=== PATIENT | female | born 1970 | race Caucasian/White ===

== ENCOUNTER → 2018-08-15 13:41 | Outpatient (CLI) | payer MEDICAID, SELFPAY ==
[2018-08-15 14:52] LABS: Amphetamine Urine VISTA NEGATIVE (<1000 ng/mL); Barbiturate Urine VISTA NEGATIVE (< 200 ng/mL); Benzodiazepine Urine VISTA NEGATIVE (< 200 ng/mL); Cocaine Urine VISTA NEGATIVE (< 300 ng/mL); Ecstacy Urine VISTA POSITIVE (< 500 ng/mL); Methadone Urine VISTA NEGATIVE (< 300 ng/mL); PCP Urine VISTA NEGATIVE (< 25 ng/mL); THC Urine VISTA POSITIVE (< 50 ng/mL); Vista UDS pH Range 5
[2018-08-21 09:11] LABS: Amphetamine Ur Confirm Negative
== END ==
PROVIDERS: Family Provider Family Medicine; PCP Family Medicine; Referring Provider Psychiatry & Neurology Psychiatry; Visit Provider Psychiatry & Neurology Psychiatry
DX: F19.10 Other psychoactive substance abuse, uncomplicated (principal); Z79.899 Other long term (current) drug therapy
CPT/HCPCS: 80307; 80346

== ENCOUNTER 2019-02-15 15:34 | Emergency (ER) | payer MEDICAID, SELFPAY ==
[2019-02-15 15:37] VITALS: BP 139/89; PULSE 92; RESP 17; TEMP 37.1; O2SAT 95; BMI 29.9
--- NOTE | 2019-02-15 15:57 | ED.DCSUM_ITS ---
History of Present Illness Chief Complaint: Substance Abuse Detail of Chief Complaint: I need help because my liver is failing Informant: Patient Onset: Month(s) Context: Gradual Onset Timing: Continuous Quality: Consumes 12-15 beer cans per day Location: Not applicable Current Severity: Moderate Maximum Severity: Moderate Worsened by: Patient has no symptoms Relieved by: Not applicable Associated Symptoms: Patient presents because physician magistrate assistant Jelani told her..... Narrative: Patient is a 48-year-old woman who presents for detox. She states she drinks heavily. She is drinking 12-15 beers per day. Her last can of beer was 1201. She presents because she was told by Dr. Chairez and BRYANT Palomares that her liver is failing. She does not have access to her most recent labs. She denies change in color of her urine or stool. She states her stool is green-black. She states she is on iron. She denies ocular, visual or auditory symptoms. She denies cardiac or respiratory symptoms. She denies abdominal pain. She denies bruising easily. Prior similar symptoms: No Recent Illness/Hospitalization: No - Past Medical History (1) Hypertension Status: Chronic (2) COPD (chronic obstructive pulmonary disease) with emphysema Status: Chronic (3) PTSD (post-traumatic stress disorder) Status: Chronic (4) Depression Status: Chronic (5) Chronic GERD Status: Chronic (6) Pulmonary embolism Status: Chronic Past Medical History - Allergies and Home Meds Allergies/Adverse Reactions: Allergies fentanyl Adverse Reaction (Verified 02/15/19 15:37) Other varenicline [From Chantix] Adverse Reaction (Verified 02/15/19 15:37) Other Primary Care Physician: Memo Chairez MD [Primary Care Provider] - Prior records reviewed: Yes Surgical History: hysterectomy, tonsillectomy, - - Back surgery Lives: Alone Smoking Status: Current every day smoker Alcohol: Heavy Drugs: None - Family History Paternal Family History: Reports: Cancer, Heart Disease, Stroke Maternal Family History: Reports: Cancer - lung cancer father, mother, paternal uncles x2, Unknown Review of Systems General: Denies: Chills, Fever, Sweats Eyes: Denies: Visual changes - bilaterally, Blurred Vision - bilaterally, Diplopia ENT: Denies: Bilateral ear pain, Rhinorrhea, Sore throat Cardiovascular: Denies: Chest pain, Palpitations Respiratory: Denies: Dyspnea, Cough, Dyspnea on exertion Gastrointestinal: Denies: Abdominal pain, Nausea, Vomiting, Diarrhea, Melena, Hematochezia Genitourinary: Denies: Dysuria, Hematuria, Frequency Musculoskeletal: Denies: Myalgias, Arthralgias, Neck pain, Back pain, Swelling, Extremity Pain Skin: Denies: Rash, Wounds Neurological: Denies: Headache, Weakness, Numbness Psych: Reports: Depression, Anxiety. Denies: Suicidal thoughts, Suicidal ideations Endocrine: Denies: Polyuria, Polydipsia Hematologic: Denies: Easy bruising, Easy bleeding Physical Exam Vital Signs/Narrative: Vital Signs Temp Pulse Resp BP Pulse Ox 02/15/19 15:37 98.8 F 92 17 139/89 H 95 Inital Vital Signs reviewed: Yes General: Well nourished, Well developed, No Acute Distress, - - There is alcohol noted to her breath. Head: Normocephalic, Atraumatic Eyes: Perrl, EOMI ENT: Moist mucous membranes, No rhinorrhea Neck: Supple, Nontender Cardiovascular: Regular rate, Regular rhythm, No murmurs, Normal S1, Normal S2 Respiratory: No distress, CTA bilaterally, Chest nontender Abdomen: Soft, Nontender, Nondistended, Normal bowel sounds, No masses. Negative for: Hepatomegaly, Splenomegaly, Mass Rectal: Deferred Back: Nontender, Normal Inspection Extremities: Nontender, No edema Skin: Normal color, No rash Neurological: Alert, Oriented x3, Cranial nerves II-XII grossly intact, Normal Strength, Normal Sensation, Normal DTR - There is no clonus or Babinski sign. Psychological: Normal affect, Normal Mood Diagnostic/Tx/Re-eval - Medical Decision Making Pain patient's most recent blood work from [facility]. Case management was consulted. Since there is no history of bruising easily will not obtain a PT/INR which is a true assessment of patient's liver function. Humberto test from [facility] were faxed to the emergency department. Patient had a slightly elevated AST and ammonia was 52 with an upper end of normal at 51. The conclusion was drawn the patient is experiencing liver dysfunction. A PT/INR was not obtained and is a true indication of liver function. Since she is not bruising easily and does not have thrombocytopenia or pancytopenia which would indicate bone marrow suppression a PT/INR was not obtained. Case management is presently seen patient to determine best treatment option for Ms. Garcia Keep your appointment at 184 tomorrow morning. Do not discontinue drinking because you may go through withdrawal, which is life-threatening. ED Disposition - Plan for ED Patient: Disposition: Home or Assisted Living Diagnosis: Alcohol intoxication Instructions: Alcohol Abuse Referrals: Memo Chairez MD [Primary Care Provider] - [facility] [STAFF PHYSICIAN] - Keep Mercedes appointment
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
--- NOTE | 2019-02-15 16:47 | NURSING ---
1600 CALLED [facility] FOR MOST RECENT LABS. LEFT MESSAGE ON MEDICAL RECORDS MACHINE. ALSO FAXED A COVER SHEET WITH THE LABS REQUESTED. 1615 RECEIVED LABS FAXED. GAVE THE PACKET TO DR CLOÓN
== END 2019-02-15 17:00 | disposition home or self-care (01) ==
PROVIDERS: Emergency Provider Emergency Medicine; Family Provider Family Medicine; PCP Family Medicine
DX: F10.129 Alcohol abuse with intoxication, unspecified (principal); F17.200 Nicotine dependence, unspecified, uncomplicated; F32.9 Major depressive disorder, single episode, unspecified; F43.10 Post-traumatic stress disorder, unspecified; I10 Essential (primary) hypertension; J44.9 Chronic obstructive pulmonary disease, unspecified; K21.9 Gastro-esophageal reflux disease without esophagitis; Z86.711 Personal history of pulmonary embolism; Z90.710 Acquired absence of both cervix and uterus; Y90.9 Presence of alcohol in blood, level not specified
CPT/HCPCS: 99281

== ENCOUNTER 2019-08-09 16:55 | Outpatient (REF) | payer SELFPAY | END 2019-08-09 21:00 | disposition home or self-care (01) | LOC: EDREF 16:55 | DX: Z04.41 Encounter for examination and observation following alleged adult rape (principal) ==

== ENCOUNTER 2019-12-07 16:38 | Emergency (ER) | payer MEDICAID, SELFPAY ==
[2019-12-07 16:42] VITALS: BP 130/93; PULSE 81; RESP 22; TEMP 36.9; O2SAT 97; BMI 31.6
--- NOTE | 2019-12-07 17:01 | EKG12_ITS ---
Test Reason : CP Blood Pressure : / mmHG Vent. Rate : 078 BPM Atrial Rate : 078 BPM P-R Int : 160 ms QRS Dur : 092 ms QT Int : 408 ms P-R-T Axes : 023 066 068 degrees QTc Int : 465 ms Normal sinus rhythm Nonspecific ST abnormality Abnormal ECG Confirmed by RICCI BLACKWELL, BIBIANA ([id number]), television news video editor DOYLE BAZZI ([id number]) on 12/11/2019 10:47:03 AM Referred By: ANGELA Confirmed By:BIBIANA WYNNE MD
--- NOTE | 2019-12-07 17:01 | CT_ITS ---
STUDY: CTA CHEST REASON FOR EXAM: Female, 49 years old. CP X 3 DAYS RADIATION DOSAGE (If Supplied By Facility): CTDIvol = ( 12.89 ) mGy, DLP = ( 492.57 ) mGycm TECHNIQUE: The examination was performed with the intravenous administration of 100CC ISOVUE 370. Post-processing of the angiographic images was performed, with multiplanar reformation and 3D reconstruction. Individualized dose optimization techniques were used for this CT. COMPARISON: April 19, 2016 FINDINGS: Normal enhancement of the main pulmonary artery and right and left pulmonary arteries. Normal enhancement of the bilateral peripheral pulmonary arteries. There is no demonstrated pulmonary embolism. Atherosclerotic changes of the aorta without evidence for aneurysm There is no demonstrated aortic dissection. Heart size is normal. There is minimal coronary artery calcification. Small subcentimeter mediastinal nodes.. Normal hilar regions. Normal visualized trachea and bronchi. There is minimal subsegmental atelectasis in right upper lobe. No focal infiltration is seen. There is a calcified granuloma in left lower lobe. Normal pleura. Normal chest wall structures. Dorsal spine demonstrates advanced spondylosis Mild nonspecific fatty infiltration of the liver. CT/CTA Chest W/WO Contrast IMPRESSION: Minimal subsegmental atelectasis in right upper lobe. No focal infiltration. Calcified granuloma in left lower lobe No evidence for pulmonary embolus Electronically Signed: Mitul Brand MD at 18:20 EDT , Service support ,
[2019-12-07 17:09] VITALS: O2SAT 96
--- NOTE | 2019-12-07 17:09 | ED.DCSUM_ITS ---
- ER Visit Summary Date of Service: 12/07/19 Chief Complaint: Chest pain History of Present Illness: The patient is a 49 F with right side chest pain for several days. It radiates through to her right back. She denies any abdominal pain or GI symptoms. Denies any urinary symptoms. Denies fever or cough. She had similar symptoms in the past with an abscess in her chest. She also has a history of PE. She is not currently on blood thinners. History of COPD. Denies any cardiac history. Physical Examination: Afebrile and vital signs unremarkable. Patient appears uncomfortable but not toxic or in distress. Heart regular. Lungs clear. Abdomen soft and nontender. Calves soft and supple. Test Results: EKG shows sinus rhythm at a rate of [address] segment changes. Labs and CTA pending. Emergency Department Course and Treatment: Patient was placed on a monitor. X- ray as above. Will check labs and imaging. Patient received Zofran and morphine while awaiting results. CBC normal. BMP unremarkable. Troponin normal. CT showed right upper lobe atelectasis, left lower lobe granuloma but no PE. Patient is better on reevaluation. I do not believe this is cardiac. She had the pain for 3 days straight continuously. I advised her that the only way to know for sure would involve admission and further testing. Patient declined. We will try outpatient pain medicine and follow-up with primary care. Return for any new or worsening issues. I reexamined her and pressed on her abdomen. She has no abdominal tenderness. Treatment Plan: As above Disposition: Discharge Impression: Atypical chest pain This note was generated with [email or web address] dictation software. It may contain incorrect words, spelling, and punctuation that were not noted in review of the chart prior to signing ED Disposition - Plan for ED Patient: Referrals: Memo Chairez MD [Primary Care Provider] -
[2019-12-07] MEDS: Morphine 4 MG/ML Syringe IV (17:17)
[2019-12-07] MEDS: Ondansetron 4 MG/2 ML Vial IV (17:17)
[2019-12-07 17:31] LABS: Absolute Lymphocyte Count 2.05 X10^3/uL (0.83-4.51); Absolute Neutrophil Count 4.8 X10^3/uL (2.0-7.7); Basophil# 0.06 X10^3/uL; Basophil% 0.7 % (0-1); Eosinophil# 0.22 X10^3/uL; Eosinophils% 2.7 % (0-5); Hematocrit 41.9 % (37-47); Hemoglobin 14.8 g/dL (12.0-15.0); Lymphocyte # 2.05 X10^3/ul (4.0); Lymphocyte % 25.5 % (19-41); Mean Corp Hgb Conc 35.3 g/dL (32-36); Mean Corpuscular Hgb 33.6 pg (27.0-32.0); Mean Corpuscular Volume 95.2 fL (81-99); Mean Platelet Vol. 11.3 fl (6.2-12.0); Monocyte# 0.86 X10^3/uL; Monocyte% 10.7 % (0-10); NRBC Flagged by Analyzer 0 % (0-5); Neutrophil # 4.81 X10^3/uL (2.7-7.7); Platelet Count 270 K/mm3 (150-450); RBC Distribution Width SD 42.2 fl (35.1-43.9)
[2019-12-07 17:45] LABS: Anion Gap 8 (5-15); BUN 9 mg/dL (7-18); BUN/Creat Ratio 13.4 RATIO (10-20); Calcium,Total 8.9 mg/dL (8.5-10.1); Chloride 99 mmol/L (98-107); Creatinine, Serum 0.67 mg/dL (0.55-1.02); EST Glomerular Filtration Rate 98 mL/min (>60); Est Glom Filt Rate - Afr Amer 118 mL/min (>60); Estimated Creatinine Clearance 100.21 ml/min; Glucose 85 mg/dL (74-106); Potassium 3.6 mmol/L (3.5-5.1); Sodium Level 133 mmol/L (136-145)
[2019-12-07 17:53] LABS: Partial Thromboplast Time 28.3 Seconds (24.1-36.2)
--- NOTE | 2019-12-07 18:30 | ED.DEP ---
ED Disposition - Plan for ED Patient: Instructions: ED Chest Pain Atypical Unkn Cause Prescriptions: Oxycodone HCl/Acetaminophen [Percocet 5/325] 1 tab PO Q6H PRN PRN 3 Days #12 tab PRN Reason: Pain Prescription Printed Referrals: Memo Chairez MD [Primary Care Provider] -
== END 2019-12-07 19:28 | disposition home or self-care (01) ==
LOC: ED 17:37
PROVIDERS: Emergency Provider Emergency Medicine; PCP Family Medicine
DX: R07.9 Chest pain, unspecified (principal); R07.89 Other chest pain; J44.9 Chronic obstructive pulmonary disease, unspecified; Z86.711 Personal history of pulmonary embolism; J84.10 Pulmonary fibrosis, unspecified; J98.11 Atelectasis; K21.9 Gastro-esophageal reflux disease without esophagitis; I10 Essential (primary) hypertension; Z72.0 Tobacco use
CPT/HCPCS: 71275; 80048; 84484; 85025; 85610; 85730; 93005; 96374; 96375; 99285; J7030; Q9967; A4216; J2405

== ENCOUNTER 2020-04-01 13:20 | Emergency (ER) | payer MEDICAID, SELFPAY ==
[2020-04-01 13:24] VITALS: BP 171/106; PULSE 76; PULSE 77; RESP 12; RESP 16; TEMP 36.9; O2SAT 94; O2SAT 95; BMI 31.0
--- NOTE | 2020-04-01 13:27 | EKG12_ITS ---
Test Reason : CP Blood Pressure : / mmHG Vent. Rate : 073 BPM Atrial Rate : 073 BPM P-R Int : 160 ms QRS Dur : 086 ms QT Int : 392 ms P-R-T Axes : 028 026 058 degrees QTc Int : 431 ms Normal sinus rhythm Septal infarct , age undetermined Abnormal ECG Confirmed by CORA BLACKWELL, MU ([id number]), business editor DOYLE BAZZI ([id number]) on 04/07/2020 8:47:04 A M Referred By: GOKUL Confirmed By:LONG SHEPHERD MD
--- NOTE | 2020-04-01 13:28 | ED.VIS.GEN ---
History of Present Illness Chief Complaint: Chest Pain Informant: Patient Onset: Days Context: Gradual Onset Timing: Continuous Current Severity: Moderate Maximum Severity: Moderate Narrative: The patient is a 50-year-old female with medical history significant for COPD and prior pulmonary emboli the presents to the emergency department chest pain and dyspnea. The patient states that for the past 3 days, she is a gradually worsening chest pain. She describes it as bandlike across her chest. She states is worse when she coughs or breathes. She denies any fevers. She denies any productive sputum. She denies any nausea or vomiting. She denies any history of prior coronary vascular disease. She states she has been using her inhalers with little improvement. Prior similar symptoms: Yes Recent Illness/Hospitalization: No Past Medical History - Allergies and Home Meds Allergies/Adverse Reactions: Allergies fentanyl Adverse Reaction (Verified 04/01/20 13:23) Other varenicline [From Chantix] Adverse Reaction (Verified 04/01/20 13:23) Other Primary Care Physician: Memo Chairez MD [Primary Care Provider] - Prior records reviewed: Yes Past Medical History: - - COPD Surgical History: hysterectomy, tonsillectomy, - - Back surgery Smoking Status: Current every day smoker - Family History Paternal Family History: Reports: Cancer, Heart Disease, Stroke Maternal Family History: Reports: Cancer - lung cancer father, mother, paternal uncles x2, Unknown Review of Systems General: Denies: Chills, Fever, Sweats Eyes: Denies: Visual changes - bilaterally, Diplopia ENT: Denies: Rhinorrhea, Sore throat Cardiovascular: Reports: Chest pain. Denies: Palpitations Respiratory: Reports: Dyspnea, Cough. Denies: Dyspnea on exertion Gastrointestinal: Denies: Abdominal pain, Nausea, Vomiting, Diarrhea, Melena, Hematochezia Genitourinary: Denies: Dysuria, Hematuria, Frequency Musculoskeletal: Denies: Back pain, Extremity Pain Skin: Denies: Rash, Wounds Neurological: Denies: Headache, Weakness, Numbness Physical Exam Inital Vital Signs reviewed: Yes General: Well nourished, Well developed, No Acute Distress Head: Normocephalic, Atraumatic Eyes: Perrl, EOMI ENT: Moist mucous membranes, No rhinorrhea Neck: Supple, Nontender Cardiovascular: Regular rate, Regular rhythm, No murmurs Respiratory: No distress, Chest nontender, Wheezing Abdomen: Soft, Nontender, Nondistended, Normal bowel sounds Back: Nontender, Normal Inspection Extremities: Nontender, No edema Skin: Normal color, No rash Neurological: Alert, Oriented x3, Cranial nerves II-XII grossly intact, Normal Strength, Normal Sensation Psychological: Normal affect, Normal Mood Diagnostic/Tx/Re-eval Clinical Impression(s) from Imaging Studies Chest X-Ray 04/01/20 13:36 IMPRESSION: Normal x-ray examination of the chest. Electronically Signed: Km Esquivel MD at 14:38 EDT Tel , Service support , Abnormal Lab Results 04/01/20 04/01/20 04/01/20 13:45 13:45 13:45 WBC 7.7 RBC 4.04 L Hgb 13.2 Hct 39.2 MCV 97.0 MCH 32.7 H MCHC 33.7 RDW Std Deviation 42.9 RDW Coeff of Sandeep 12.0 Plt Count 191 MPV 11.2 Immature Gran % (Auto) 0.400 Neut % (Auto) 66.4 Lymph % (Auto) 18.9 L Becker % (Auto) 10.9 H Eos % (Auto) 2.7 Baso % (Auto) 0.7 Absolute Neuts (auto) 5.1 Absolute Lymphs (auto) 1.45 Nucleated RBC % 0 D-Dimer Quant (PE/DVT) 0.37 Sodium 135 L Potassium 4.1 Chloride 102 Carbon Dioxide 31.0 Anion Gap 2 L BUN 10 Creatinine 0.66 Estim Creat Clear Calc 100.58 Est GFR (MDRD) Af Amer 121 Est GFR (MDRD) Non-Af 100 BUN/Creatinine Ratio 15.1 Glucose 95 Calcium 8.7 Magnesium 2.0 Troponin I < 0.015 - Rhythm Strip Rhythm Strip: Sinus Rhythm Rate: 80 Ectopy: None - EKG Initial EKG Interpretation: Sinus Rhythm, No Acute Injury Pattern, Non-Specific ST Changes Prior: Unchanged - Medical Decision Making The patient presents with chest pain for 3 days with shortness of breath and cough. She has not had fever. She not had chills. She has no history of coronary vascular disease. EKG was obtained. Was sinus rhythm without any acute ischemic change. Was unchanged from prior. The patient is have wheezing in all lung coreas. She was given nebulized breathing treatments with improvement of aeration. Screening labs including cardiac enzymes were negative. D-dimer was negative. Given the duration of her symptoms, I really do not suspect this to be acute coronary syndrome. She was improved after treatments. With her underlying smoking and COPD history, along with productive sputum, I am going to cover her with doxycycline and prednisone. Patient is comfortable with this plan of care will be discharged home. Impression 1. COPD exacerbation ED Disposition - Plan for ED Patient: Instructions: ED Chest Pain Pleurisy Prescriptions: Prednisone [Deltasone] 60 mg PO DAILY #15 tab Prescription Printed Doxycycline 100 mg PO BID #20 cap Prescription Printed Referrals: Memo Chairez MD [Primary Care Provider] -
--- NOTE | 2020-04-01 13:36 | RAD_ITS ---
STUDY: X-RAY CHEST REASON FOR EXAM: Female, 50 years old. COUGH SOB CHEST PAIN TECHNIQUE: Single AP portable view of the chest. COMPARISON: 02/28/2017 FINDINGS: The lungs are clear and expanded. There is no demonstrated pleural abnormality. Normal size heart. Normal mediastinum and ollie. Normal visualized pulmonary arteries. Normal visualized aortic arch and descending thoracic aorta. Normal visualized thoracic spine. Normal visualized ribs, clavicles, and shoulders. There is no demonstrated abnormality of the visualized soft tissue structures of the upper abdomen. RAD/Chest 1 View (Portable) IMPRESSION: Normal x-ray examination of the chest. Electronically Signed: Km Esquivel MD at 14:38 EDT Tel , Service support ,
[2020-04-01 13:48] VITALS: BP 158/117; PULSE 78; RESP 16; TEMP 36.9; O2SAT 95
[2020-04-01 13:58] LABS: Absolute Lymphocyte Count 1.45 X10^3/uL (0.83-4.51); Absolute Neutrophil Count 5.1 X10^3/uL (2.0-7.7); Basophil# 0.05 X10^3/uL; Basophil% 0.7 % (0-1); Eosinophil# 0.21 X10^3/uL; Eosinophils% 2.7 % (0-5); Hematocrit 39.2 % (37-47); Hemoglobin 13.2 g/dL (12.0-15.0); Lymphocyte # 1.45 X10^3/ul (4.0); Lymphocyte % 18.9 % (19-41); Mean Corp Hgb Conc 33.7 g/dL (32-36); Mean Corpuscular Hgb 32.7 pg (27.0-32.0); Mean Platelet Vol. 11.2 fl (6.2-12.0); Monocyte# 0.84 X10^3/uL; Monocyte% 10.9 % (0-10); NRBC Flagged by Analyzer 0 % (0-5); Neutrophil % 66.4 % (47-70); Platelet Count 191 K/mm3 (150-450); RBC Distribution Width SD 42.9 fl (35.1-43.9); Red Blood Count 4.04 M/mm3 (4.2-5.4); White Blood Count 7.7 K/mm3 (4.4-11.0)
[2020-04-01 14:07] LABS: D-Dimer Quantitative (DVT/PE) 0.37 FEU/ug/m (0.27-0.49)
[2020-04-01 14:16] LABS: Anion Gap 2 (5-15); BUN 10 mg/dL (7-18); BUN/Creat Ratio 15.1 RATIO (10-20); Calcium,Total 8.7 mg/dL (8.5-10.1); Chloride 102 mmol/L (98-107); Creatinine, Serum 0.66 mg/dL (0.55-1.02); EST Glomerular Filtration Rate 100 mL/min (>60); Est Glom Filt Rate - Afr Amer 121 mL/min (>60); Estimated Creatinine Clearance 100.58 ml/min; Glucose 95 mg/dL (74-106); Potassium 4.1 mmol/L (3.5-5.1); Sodium Level 135 mmol/L (136-145)
[2020-04-01] MEDS: Morphine 4 MG/ML Syringe IV (14:24)
[2020-04-01 15:22] VITALS: BP 146/106; PULSE 71; RESP 16; O2SAT 96
== END 2020-04-01 15:24 | disposition home or self-care (01) ==
PROVIDERS: Emergency Provider Emergency Medicine; PCP Family Medicine
DX: J44.1 Chronic obstructive pulmonary disease with (acute) exacerbation (principal); F17.200 Nicotine dependence, unspecified, uncomplicated; Z82.49 Family history of ischemic heart disease and other diseases of the circulatory system; Z86.711 Personal history of pulmonary embolism; Z88.5 Allergy status to narcotic agent; Z90.710 Acquired absence of both cervix and uterus
CPT/HCPCS: 71045; 80048; 83735; 84484; 85025; 85379; 93005; 96374; 99281; 99285; A4216

== ENCOUNTER 2020-05-10 17:56 | Inpatient (IN) | payer MEDICAID, SELFPAY ==
[2020-05-10 17:57] VITALS: BP 135/90; PULSE 100; RESP 18; TEMP 37.4; O2SAT 94; BMI 29.2
--- NOTE | 2020-05-10 17:59 | EKG12_ITS ---
Test Reason : CP Blood Pressure : / mmHG Vent. Rate : 093 BPM Atrial Rate : 093 BPM P-R Int : 134 ms QRS Dur : 100 ms QT Int : 378 ms P-R-T Axes : -08 068 056 degrees QTc Int : 469 ms Normal sinus rhythm Normal ECG Confirmed by RICCI BLACKWELL, BIBIANA ([id number]), publications editor ANDREZ BUCHANAN ([id number]) on 05/14/2020 12:52:24 PM Referred By: Kelly Vidales Confirmed By:BIBIANA WYNNE MD
--- NOTE | 2020-05-10 18:07 | CT_ITS ---
STUDY: CT ABDOMEN AND PELVIS WITHOUT CONTRAST REASON FOR EXAM: Female, 50 years old. N/V/D X 2 DAYS WITH RIGHT SIDED ABD PAIN X 2 HOURS, HX COPD, HYSTERECTOMY, BACK SX RADIATION DOSAGE (If Supplied By Facility): CTDIvol = ( 15.94 ) mGy, DLP = ( 784.57 ) mGycm TECHNIQUE: Transaxial images were obtained from the dome of the diaphragm to the symphysis pubis without oral contrast, and without intravenous contrast. Sagittal and coronal images were reconstructed. Individualized dose optimization techniques were used for this CT. COMPARISON: Prior abdomen and pelvic CT exam of 07/08/2059 FINDINGS: The visualized lung bases are unremarkable. The visualized portions of the heart are within normal limits. Severe fatty liver with mild hepatomegaly. Normal gallbladder and extrahepatic biliary system. Normal spleen. Normal pancreas. Normal bilateral adrenal glands. Normal size of the kidneys bilaterally. Negative for hydronephrosis or stones. There is an exophytic isodense nodule on the lateral border of the lower pole measuring 12 mm. Formally appeared as a simple cyst on contrast exam. Similar in size. Normal visualized stomach. Normal small intestine. Normal colon. The appendix is visualized and appears normal. Mild plaque of the aorta. Normal inferior vena cava. Normal retroperitoneum. Normal urinary bladder. Status post hysterectomy with no pelvic mass or free fluid of the pelvis. Minimal bilateral fatty groin hernias. There are diffuse degenerative changes of the visualized lumbar spine. CT/Abdomen/Pelvis without Cont IMPRESSION: Mild hepatomegaly with severe fatty change. Normal spleen and pancreas. Unremarkable gallbladder. No acute renal findings or changes. Negative for hydronephrosis or stones. Unremarkable nondistended urinary bladder. Stable exophytic 12 mm cyst in the lower pole of left kidney. Mild tortuosity and atherosclerotic changes of the aorta without aneurysm. Status post hysterectomy with no pelvic mass or free fluid of the pelvis. No acute bowel related findings. Negative for evidence of obstruction, perforation or inflammatory bowel changes. A normal appendix is identified. Electronically Signed: Belkis Tolbert MD at 19:11 EST , Service support ,
--- NOTE | 2020-05-10 18:09 | ED.DCSUM_ITS ---
- ER Visit Summary Date of Service: 05/10/20 Chief Complaint: Abdominal pain History of Present Illness: The patient is a [address] Chairez. She reports approximately 2-1/2 hours ago she had the onset of right-sided abdominal pain. Stabbing pain is 10 of 10 severity. Is worsened by coughing relieved by nothing. She reports that she has been nauseated and vomited approximately 12 times today. She reports that she vomited 20 times yesterday. No blood in her emesis. She reports that she has had multiple episodes of diarrhea for the past 2 days. She is taken Imodium and has not had any diarrhea today. Patient denies sick contacts. Has not been camping out of the country. No possible bad food exposure. Does not drink well water. She reports that she was on amoxicillin approximately 1 month ago for a COPD flare. Patient denies any flank pain. She reports that she has chest pain that began 2:00 this afternoon. Is a constant pressure that is 910 at worst and 710 currently. Increased with coughing or vomiting. There is no change with exertion. Patient does complain of subjective fever and chills. She has a chronic cough that is unchanged. She complains of generalized weakness. Physical Examination: Vitals: Stable. Afebrile. General: Well-nourished and well-developed. Head: Normocephalic atraumatic. Neck: Supple, no lymphadenopathy. No JVD. Nontender. Cardiovascular: Regular rate and rhythm. No murmurs. Respiratory: No respiratory distress. Clear to auscultation bilaterally. Abdominal: Soft, severe tenderness palpation the epigastric region with moderate right upper quadrant and right lower quadrant tenderness to palpation, nondistended, normal bowel sounds. No guarding, rebound, or peritoneal signs. Back: Nontender. No CVA tenderness. Extremities: Nontender, no edema. Skin: Normal color, no rash. Neurologic: Alert and oriented ?3. Cranial nerves II through XII are intact. Normal strength and sensation. Psych: Normal affect. Test Results: CBC shows a white count of 15.2 with segment neutrophils of 70 and lymphocytes of 11. Chem-7 shows sodium 134 and glucose 107. LFTs show total bili of 1.5, alk phos of 122, ALT of 277, AST of 554, albumin 3.0, globulin 4.6. Lipase is 170. Troponin is negative. EKG is sinus at [address] changes. Is essentially unchanged from last month. COVID-19 is negative. Clinical Impression(s) from Imaging Studies Abdomen/Pelvis CT 05/10/20 18:07 IMPRESSION: Mild hepatomegaly with severe fatty change. Normal spleen and pancreas. Unremarkable gallbladder. No acute renal findings or changes. Negative for hydronephrosis or stones. Unremarkable nondistended urinary bladder. Stable exophytic 12 mm cyst in the lower pole of left kidney. Mild tortuosity and atherosclerotic changes of the aorta without aneurysm. Status post hysterectomy with no pelvic mass or free fluid of the pelvis. No acute bowel related findings. Negative for evidence of obstruction, perforation or inflammatory bowel changes. A normal appendix is identified. Electronically Signed: Belkis Tolbert MD at 19:11 EST , Service support , Chest X-Ray 05/10/20 18:35 IMPRESSION: Generalized hyperexpansion without new consolidation, other infiltrates or focal atelectasis. Normal cardiac size without pleural effusion. Minimal linear opacity stable from prior exam. Electronically Signed: Belkis Tolbert MD at 18:55 EST , Service support , Emergency Department Course and Treatment: Patient had an IV placed. She was given a liter of normal saline. She was given morphine and Zofran IV. She is resting more comfortably. Treatment Plan: The patient was discussed with Dr. Gordon who reviewed the CT. She does not feel that an ultrasound is necessary tonight. However, she does feel that her blood work is consistent with cholecystitis. She was given a dose of Zosyn. Patient was then discussed with Dr. Vidales. She will be admitted to the hospital for further evaluation and treatment. Disposition: Admitted in improved condition. Impression: 1. Cholecystitis. This note was generated with [employer] software. It may contain incorrect words, spelling, and punctuation that were not noted in review of the chart prior to signing ED Disposition - Plan for ED Patient: Referrals: Memo Chairez MD [Primary Care Provider] -
[2020-05-10] MEDS: 0.9% Normal Saline 1,000 ML 1000 ML IV (18:26)
[2020-05-10] MEDS: Ondansetron 4 MG/2 ML Vial IV ×2 (18:26→22:24)
[2020-05-10] MEDS: Morphine 4 MG/ML Syringe IV ×2 (18:27→19:48)
[2020-05-10] MEDS: LORazepam 2 MG/ML Syringe 1 MG IV (18:28)
[2020-05-10 18:33] LABS: Basophil# 0.07 X10^3/uL; Basophil% 0.5 % (0-1); Eosinophil# 0.03 X10^3/uL; Eosinophils% 0.2 % (0-5); Hematocrit 43.7 % (37-47); Hemoglobin 14.9 g/dL (12.0-15.0); Lymphocyte % 11.2 % (19-41); Mean Corp Hgb Conc 34.1 g/dL (32-36); Mean Corpuscular Hgb 33.3 pg (27.0-32.0); Mean Corpuscular Volume 97.5 fL (81-99); Mean Platelet Vol. 10.4 fl (6.2-12.0); Monocyte# 1.34 X10^3/uL; Monocyte% 8.8 % (0-10); NRBC Flagged by Analyzer 0 % (0-5); Neutrophil # 12.02 X10^3/uL (2.7-7.7); Platelet Count 287 K/mm3 (150-450); RBC Distribution Width CV 13.2 % (11.6-14.6); RBC Distribution Width SD 47.1 fl (35.1-43.9); Red Blood Count 4.48 M/mm3 (4.2-5.4); White Blood Count 15.2 K/mm3 (4.4-11.0)
--- NOTE | 2020-05-10 18:35 | RAD_ITS ---
STUDY: X-RAY CHEST REASON FOR EXAM: Female, 50 years old. Chest pain,cough,, nausea, vomiting, diarrhea x2 days. TECHNIQUE: 1 view COMPARISON: Prior chest radiograph of 04/01/2020 FINDINGS: Generalized hyperexpansion without new consolidation or focal atelectasis. Chronic mild thickening of the minor fissure and a minimal area of fibrotic change at the base of the right upper lobe and left lower lobe stable from prior exam. Normal size heart. Normal mediastinum and ollie. Normal visualized pulmonary arteries. Mild elongation of the thoracic aorta. There are diffuse degenerative changes of the visualized thoracic spine. Normal visualized ribs, clavicles, and shoulders. There is no demonstrated abnormality of the visualized soft tissue structures of the upper abdomen. RAD/Chest 1 View (Portable) IMPRESSION: Generalized hyperexpansion without new consolidation, other infiltrates or focal atelectasis. Normal cardiac size without pleural effusion. Minimal linear opacity stable from prior exam. Electronically Signed: Belkis Tolbert MD at 18:55 EST , Service support ,
[2020-05-10 18:48] LABS: ALB/GLOB Ratio 0.7 RATIO (0.9-2.4); AST(SGOT) 554 U/L (15-37); Alanine Aminotransfer ALT/SGPT 277 U/L (13-56); Alkaline Phosphatase 122 U/L (45-117); Anion Gap 11 (5-15); BUN 10 mg/dL (7-18); BUN/Creat Ratio 13.8 RATIO (10-20); Calcium,Total 8.6 mg/dL (8.5-10.1); Chloride 99 mmol/L (98-107); Creatinine, Serum 0.72 mg/dL (0.55-1.02); EST Glomerular Filtration Rate 90 mL/min (>60); Est Glom Filt Rate - Afr Amer 109 mL/min (>60); Globulin 4.6 g/dL (2.2-4.2); Glucose 107 mg/dL (74-106); Lipase 170 U/L (73-393); Potassium 4.1 mmol/L (3.5-5.1); Protein, Total 7.6 g/dL (6.4-8.2); Sodium Level 134 mmol/L (136-145)
[2020-05-10 19:52] VITALS: BP 147/92; PULSE 95; RESP 20; O2SAT 94
[2020-05-10 20:25] VITALS: O2SAT 85; O2SAT 93
--- NOTE | 2020-05-10 20:38 | PCM.HP.STD ---
Problem List (1) Acute cholecystitis Status: Acute (2) Elevated LFTs Status: Acute (3) Anxiety and depression Status: Chronic (4) HLD (hyperlipidemia) Status: Chronic Qualifiers: Hyperlipidemia type: unspecified Qualified Code(s): E78.5 - Hyperlipidemia, unspecified (5) Tobacco use Status: Chronic (6) Back pain Status: Chronic Qualifiers: Back pain location: back pain in unspecified location (7) COPD (chronic obstructive pulmonary disease) with emphysema Status: Chronic Qualifiers: Emphysema type: unspecified Qualified Code(s): J43.9 - Emphysema, unspecified (8) Chronic GERD Status: Chronic (9) Hypertension Status: Chronic Qualifiers: Hypertension type: essential hypertension Qualified Code(s): I10 - Essential (primary) hypertension (10) PTSD (post-traumatic stress disorder) Status: Chronic (11) SANA (obstructive sleep apnea) Status: Chronic (12) Hypothyroidism Status: Chronic Qualifiers: Hypothyroidism type: unspecified Qualified Code(s): E03.9 - Hypothyroidism, unspecified (13) Alcohol abuse Status: Chronic History of Present Illness Date of Admission: 05/10/20 Chief Complaint: Epigastric, RUQ abdominal pain, N/V, diarrhea, cough The patient is a 50 y/o F w/ PMHx: SANA on 2L NC q HS, Chronic COPD, Anxiety and Depression, HTN, HLD, Hypothyroidism, GERD, Fe deficiency anemia, Tobacco use, Hx Polysubstance abuse (EtOH, Cocaine prior) who presents to the [facility] ED on 05/10/20 with history of onset of right-sided and epigastric abdominal pain, described as a stabbing sharp 10 out of 10 severity, worsened by movement and coughing with additionally noted nausea and occasional emesis the day prior and day of presentation as well as loose stools over the last 48 hours with self administration of Imodium with resolution of her diarrhea prompting ED evaluation. Patient did report that she had 1-2 alcoholic beverages and currently limits her self to 6 packs of beer (12 ounce 8%) daily and was more heavy in the past. She denies any alcohol withdrawal history. Work-up in the ED included T 99.4, heart 100, BP 135/90, respiratory rate 18, initially 94% on room air however there was noted to be 85% on room air later in the ED evaluation unclear following pain medications with improvement to 93% on 2 L nasal cannula but then also noted she uses 2L NC when she is sleeping/at night for her SANA, CBC with WBC 15.2, hemoglobin 14.9, platelet 227 with left shift, CMP with sodium 134, glucose 107, total bilirubin 1.50, AST/ALT 554/277, alk phos 122, troponin less than 0.015, lipase 170, COVID PRN negative, ethyl alcohol 64, chest x-ray with generalized hyperexpansion with no acute cardiopulmonary findings, CT abdomen and pelvis with mild hepatomegaly with severe fatty change, normal-appearing spleen and pancreas, unremarkable appearing gallbladder, stable exophytic 12 mm lower pole of the left kidney, status post hysterectomy, normal-appearing appendix. In the ED patient ministered normal saline, Zosyn, Zofran, morphine 4 mg IV x2 as well as Ativan 1 mg IV x1. Given patient presentation and concern for acute cholecystitis General surgery, Dr. Gordon called for admission per Dr. Alejandra and given medical history and need to obtain further work-up to conclusively state cholecystitis requested admission to medical service. Past Medical History Past Medical History (Chronic Problems): Chronic Problems Anxiety and depression (Chronic) HLD (hyperlipidemia) (Chronic) Tobacco use (Chronic) SANA (obstructive sleep apnea) (Chronic) Hypothyroidism (Chronic) Alcohol abuse (Chronic) Hypertension (Chronic) COPD (chronic obstructive pulmonary disease) with emphysema (Chronic) Back pain (Chronic) PTSD (post-traumatic stress disorder) (Chronic) Depression (Chronic) Anemia of unknown etiology (Chronic) Chronic GERD (Chronic) Pulmonary embolism (Chronic) Allergies fentanyl Adverse Reaction (Verified 05/10/20 17:56) Other varenicline [From Chantix] Adverse Reaction (Verified 05/10/20 17:56) Other Home Medications: Ambulatory Orders Medication Instructions Recorded Omeprazole [Prilosec] 40 mg PO DAILY 11/13/15 Famotidine [Pepcid] 20 mg PO QHS 12/18/15 Lisinopril [Zestril] 20 mg PO DAILY 12/18/15 buPROPion XL [Wellbutrin Xl] 150 mg PO DAILY 01/29/16 Ferrous Sulfate 325 mg PO BIDCM 03/04/16 Atorvastatin Calcium [Lipitor] 40 mg PO QHS 10/05/16 Cholecalciferol (Vitamin D3) 5,000 unit PO DAILY 10/05/16 [Vitamin D3] Furosemide [Lasix] 40 mg PO DAILY 10/05/16 Fluoxetine [Prozac] 60 mg PO DAILY 12/16/16 Lurasidone HCl [Latuda] 80 mg PO DAILY 12/16/16 Levothyroxine [Synthroid] 25 mcg PO DAILY 02/28/17 Albuterol Aerosols [Ventolin 2.5 mg INHALATION Q4H PRN PRN 12/07/19 Aerosols] Albuterol Sulfate [Albuterol 2 puff IH TID PRN 12/07/19 Sulfate HFA] Baclofen 10 mg PO BID PRN 12/07/19 Diclofenac [Voltaren] 75 mg PO BID 12/07/19 Fluticasone/Vilanterol [Breo 1 ea IH DAILY 12/07/19 Ellipta 200-25 Mcg INH] Melatonin 5 mg PO QHS PRN 12/07/19 Potassium Chloride 10 meq PO DAILY 12/07/19 Pregabalin 150 mg PO TID 12/07/19 Tiotropium [place]xton [Spiriva] 18 mcg IH DAILY 05/10/20 Surgical History: hysterectomy, tonsillectomy, - - Back surgery Psychiatric History: Anxiety, Depression, Post traumatic stress 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 Tobacco Use: Cigarettes Alcohol: Heavy - Patient currently decreased from prior and is now at a 6 pack of 12 ounce 8% alcohol beers daily. Drugs: - - Patient with history of prior cocaine abuse but has not used in decades. She does use occasional marijuana which she notes is for pain. - *Family History Paternal History Items: Cancer - Father with a history of lung cancer, tobacco use concurrently., High Cholesterol, Heart Disease, Stroke Maternal History Items: Cancer - Mother with a history of lung cancer, tobacco use concurrently. Review of Systems Constitutional: Reports: Anorexia, Malaise, Weakness, Fatigue. Denies: Chills, Fever, Weight Change HEENT: Denies: Head Aches, Sinus Congestion, Sinus Drainage Cardiovascular: Denies: Chest Pain, Palpitations Respiratory: Reports: Cough. Denies: Shortness of Breath, Shortness of breath at rest, Shortness of breath upon exertion, Sputum production, Wheezing Gastrointestinal: Reports: Abdominal Pain, Diarrhea, Nausea, Vomiting Genitourinary: Denies: Dysuria Musculoskeletal: Reports: Back Pain, Joint Pain. Denies: Joint Tenderness Skin: Denies: Rash, Wounds Neurological: Denies: Numbness, Tingling, Focal weakness Psychiatric: Reports: Anxiety, Depression. Denies: Homicidal Ideations, Suicidal Ideations Hematologic/ Lymphatic: Reports: Anemia. Denies: Easy Bruising, Easy Bleeding VTE Information - Inpt Only VTE Present on Admission: No VTE Mechan Device Prophylaxis: SCD's VTE Pharm Prophylaxis ordered?: No Reason prophylaxis not ordered:: Medical Contraindication - Hold for OR. Patient Problems: Active and Suspected Problems Elevated LFTs (Acute) Acute cholecystitis (Acute) Subjective: Patient laying in the ED bed, fatigued appearing, uncomfortable with movements with grimacing noted. Objective: Physical Examination: General: awake, alert, oriented x 3 and cooperative, laying in the ED bed, fatigued appearing. Skin: normal color, turgor, no icterus, cyanosis except occasional various staged ecchymoses and some scabs to the extremities. HEENT: AT/NC, EOMI, PERRLA, moderately dry MM, no carotid bruits or JVD noted. Lungs: Diminished breath sounds, greater bases, moderate effort, no rales, ronchi or wheezing. Heart: Mildly tachycardic with regular rhythm; no gallop, rub audible. Abdomen: soft, overweight, significant right upper quadrant pain with rebound and guarding, some epigastric discomfort concurrently, difficult to assess distention but not overtly distended, mildly decreased bowel sounds bilateral upper quadrants, apparent lower quadrants, difficult to assess HSM secondary to pain. Extremities: no cyanosis, clubbing, or edema. Neurological: patient awake, alert, oriented as noted; cognitive function intact; pupils equally reactive to light and accomodation; cranial nerves II-XII grossly normal, moving all 4 extremities, no focal deficits, strength moderately to severely globally decreased secondary to acute presentation. Psychiatric: affect appears fatigued, uncomfortable, no acute evidence of depressive or anxiety feelings. - Physical Exam Vitals/I&O's: Vital Signs Temp Pulse Resp BP Pulse Ox 99.4 F H 95 20 H 147/92 H 93 05/10/20 17:57 05/10/20 19:52 05/10/20 19:52 05/10/20 19:52 05/10/20 20:25 Oxygen Flow Rate (L/min) 2 Oxygen Delivery Method Nasal Cannula Weight: 192 lb 10.944 oz Body Mass Index (BMI) 29.2 Intake and Output for Last 24 Hours 05/08/20 05/09/20 05/10/20 23:59 23:59 23:59 Intake Total 1100 / 1100 Balance 1100 / 1100 Laboratory Results 05/10/20 18:15: WBC 15.2 H, RBC 4.48, Hgb 14.9, Hct 43.7, MCV 97.5, MCH 33.3 H, MCHC 34.1, RDW Std Deviation 47.1 H, RDW Coeff of Sandeep 13.2, Plt Count 287, MPV 10.4, Immature Gran % (Auto) 0.300, Neut % (Auto) 79.0 H, Lymph % (Auto) 11.2 L, [place] % (Auto) 8.8, Eos % (Auto) 0.2, Baso % (Auto) 0.5, Absolute Neuts (auto) 12.0 H, Absolute Lymphs (auto) 1.70, Nucleated RBC % 0 05/10/20 18:15: Sodium 134 L, Potassium 4.1, Chloride 99, Carbon Dioxide 24.0, Anion Gap 11, BUN 10, Creatinine 0.72, Estim Creat Clear Calc 92.20, Est GFR (MDRD) Af Amer 109, Est GFR (MDRD) Non-Af 90, BUN/Creatinine Ratio 13.8, Glucose 107 H, Calcium 8.6, Total Bilirubin 1.50 H, AST 554 H, ALT 277 H, Alkaline Phosphatase 122 H, Troponin I < 0.015, Total Protein 7.6, Albumin 3.0 L, Globulin 4.6 H, Albumin/Globulin Ratio 0.7 L, Lipase 170 05/10/20 18:15: Ethyl Alcohol 64.0 05/10/20 19:40: COVID-19 (YANETH) Pending Assessment/Plan All Active Problems Elevated LFTs (Acute) Acute cholecystitis (Acute) The patient is a 50 y/o F w/ PMHx: SANA on 2L NC q HS, Chronic COPD, Anxiety and Depression, HTN, HLD, Hypothyroidism, GERD, Fe deficiency anemia, Tobacco use, Hx Polysubstance abuse (EtOH, Cocaine prior) who presents to the [facility] ED on 05/10/20 with history of onset of right-sided and epigastric abdominal pain, described as a stabbing sharp 10 out of 10 severity, worsened by movement and coughing with additionally noted nausea and occasional emesis the day prior and day of presentation as well as loose stools over the last 48 hours with self administration of Imodium with resolution of her diarrhea prompting ED evaluation. 1. Suspected acute cholecystitis, possibly choledocholithiasis with elevated LFTs: CT not marked appearing, unable to obtain GB US until 05/11/20 am. Evaluation the ED concerning for acute cholecystitis, will admit to medical surgical floor given negative COVID testing and examination more consistent with acute cholecystitis, maintain on IV Zosyn, continue bowel rest with n.p.o. status except sip of water for medications, as needed oral and IV pain medication, as needed antiemetics, plan a.m. ultrasound, continue consultation with Dr. Gordon. If GB US not marked appearing may necessitate further liver investigation. 2. Transient hypoxia, suspected pain medication related and SANA as noted: Covid testing negative, PCR, presentation consistent with #1, likely occurred following morphine 4 mg IV x2 dosing, will continue to closely follow, encourage I-S and head of bed. 3. EtOH Abuse: Patient notes routine consumption of 6 pack of beer per day. Will maintain on CIWA protocol, MVI, thiamine and folic acid. Magnesium and phosphorus levels will be requested and repleted if appropriate. Will consult case management for substance abuse assistance. UDS pending. 4. Hypertension: Continue home regimen including Lasix, lisinopril with hold parameters, PRN hydralazine. 5. Hyperlipidemia: We will temporarily hold patient statin given presentation, resume once appropriate. 6. Chronic pain syndrome, radiculopathy: We will continue patient home as needed baclofen, hold diclofenac, continue pregabalin. 7. Chronic COPD: ATC duonebs, PRN albuterol, HOB, IS parameters. 8. Anxiety and depression: We will continue patient home Prozac, bupropion and Latuda regimen. 9. Hypothyroidism: Continue home synthroid regimen. 10. Chronic iron deficiency anemia: Admission hemoglobin 14.9, continue iron supplementation. 11. Tobacco Abuse: Encouraged cessation, inpatient consultation per RT, NR if desired. 12. SANA: Uses 2L NC q HS. 13. GERD: Continue patient on PPI. 14. DVT prophylaxis: SCDs, defer chemoprophylaxis pending a.m. ultrasound as may need OR. 15. CODE status: Patient does not have HCPOA or LW in place, encouraged both be set-up and to ask for information from SW/CM is interested. Discussed CODE status at length including difference between FULL code, DNR-CCA and DNR-CC status. Following discussions about the differences in these status, requested Full Code status. Advanced Care Planning Face to Face Time: 16 minutes. Inpatient E&M: 39613 Init Hosp L3 Procedures: 03146 Advncd Care Plan 30 Min
--- NOTE | 2020-05-10 20:39 | ED.RN ---
attempted to give urine sample but unable to void. more ice water given.
[2020-05-10 20:46] LABS: Probe Check PASS; Specimen Processing Control PASS
[2020-05-10 21:08] VITALS: BP 152/91; PULSE 96; RESP 20; TEMP 37.7; O2SAT 97
[2020-05-10 21:24] VITALS: BMI 29.5
[2020-05-10 21:50] VITALS: BP 122/81; PULSE 98; RESP 16; TEMP 37.6; O2SAT 96
[2020-05-10 21:55] LABS: Magnesium 1.9 mg/dL (1.6-2.6)
[2020-05-10] MEDS: 0.9% Normal Saline 1,000 ML 125 ML IV (22:16)
[2020-05-10] MEDS: HYDROmorphone 0.5 MG/0.5 ML SYRINGE IV (22:23)
[2020-05-10] MEDS: Pregabalin 75 MG Capsule 150 MG PO (22:24)
[2020-05-11] VITALS (12 sets, daily range): BP systolic 85–113; BP diastolic 57–70; PULSE 63–125; RESP 16–18; TEMP 36.8–38.3; O2SAT 92–100
[2020-05-11] MEDS: MELATONIN 10 MG TABLET 5 MG PO ×2 (01:02→22:08)
[2020-05-11] MEDS: Baclofen 10 MG Tablet PO (01:02)
[2020-05-11 01:09] LABS: Mucous, Urine 0 SEEN /hpf (<or=2+); Red Blood Cells-Urine 0 SEEN /hpf (0-5)
[2020-05-11 01:18] LABS: Color, Urine Yellow (Yellow); Glucose, Dipstick Normal (Normal); Ketone-Dipstick 5 mg/dl (Negative); Leukocyte Esterase-Dipstick 25 /ul (Negative); Nitrite-Dipstick Negative (Negative); Occult Blood-Urine Negative /ul (Negative); Protein-Dipstick 30 mg/dl (Negative); Urine Bilirubin Dipstick Negative (Negative); Urine Clarity Clear (Clear); Urine Urobilinogen Normal (Normal)
[2020-05-11 01:23] LABS: Bacteria 1+ /hpf (None Seen); Squamous Epithelial Cells - UA 0-5 SEEN /hpf (5-10); White Blood Cells 0-5 SEEN /hpf (0-5)
[2020-05-11 01:25] LABS: Transitional Epithelial - Ur 0-5 SEEN /hpf (0-5)
[2020-05-11 01:33] LABS: Amphetamine Urine VISTA NEGATIVE (<1000 ng/mL); Barbiturate Urine VISTA NEGATIVE (< 200 ng/mL); Benzodiazepine Urine VISTA NEGATIVE (< 200 ng/mL); Cocaine Urine VISTA NEGATIVE (< 300 ng/mL); Ecstacy Urine VISTA POSITIVE (< 500 ng/mL); Methadone Urine VISTA NEGATIVE (< 300 ng/mL); PCP Urine VISTA NEGATIVE (< 25 ng/mL); THC Urine VISTA POSITIVE (< 50 ng/mL); Vista UDS pH Range 5
[2020-05-11] MEDS: Acetaminophen 325 MG Tablet 650 MG PO ×2 (02:39→17:15)
[2020-05-11] MEDS: HYDROmorphone 0.5 MG/0.5 ML SYRINGE IV ×4 (02:40→18:16)
[2020-05-11] MEDS: Levothyroxine 25 MCG TABLET PO (05:10)
[2020-05-11] MEDS: Pregabalin 75 MG Capsule 150 MG PO ×3 (05:10→22:03)
[2020-05-11] MEDS: 0.9% Normal Saline 1,000 ML 125 ML IV ×2 (06:09→16:28)
[2020-05-11] MEDS: oxyCODONE 5 MG Tablet 10 MG PO ×2 (06:09→22:08)
[2020-05-11] MEDS: Ondansetron 4 MG/2 ML Vial IV (07:37)
[2020-05-11 07:38] LABS: Absolute Lymphocyte Count 1.42 X10^3/uL (0.83-4.51); Absolute Neutrophil Count 9.6 X10^3/uL (2.0-7.7); Basophil# 0.03 X10^3/uL; Basophil% 0.2 % (0-1); Eosinophil# 0.04 X10^3/uL; Eosinophils% 0.3 % (0-5); Hematocrit 39.2 % (37-47); Hemoglobin 12.8 g/dL (12.0-15.0); Lymphocyte # 1.42 X10^3/ul (4.0); Lymphocyte % 11.6 % (19-41); Mean Corp Hgb Conc 32.7 g/dL (32-36); Mean Platelet Vol. 10.8 fl (6.2-12.0); Monocyte# 1.07 X10^3/uL; Monocyte% 8.8 % (0-10); NRBC Flagged by Analyzer 0 % (0-5); Neutrophil % 78.8 % (47-70); Platelet Count 181 K/mm3 (150-450); RBC Distribution Width CV 13.4 % (11.6-14.6); RBC Distribution Width SD 49.8 fl (35.1-43.9); Red Blood Count 3.88 M/mm3 (4.2-5.4); White Blood Count 12.2 K/mm3 (4.4-11.0)
[2020-05-11] MEDS: Folic Acid 1 MG Tablet PO (08:05)
[2020-05-11] MEDS: Thiamine Hydrochloride 100 MG Tablet PO ×2 (08:05→16:23)
[2020-05-11] MEDS: Ferrous Sulfate 325 MG Tablet PO ×2 (08:05→16:23)
[2020-05-11] MEDS: Furosemide 40 MG Tablet PO (08:06)
[2020-05-11] MEDS: buPROPion (XL) 150 MG TABLET.XL PO (08:06)
[2020-05-11] MEDS: FLUoxetine 20 MG Capsule 60 MG PO (08:06)
[2020-05-11] MEDS: Lisinopril 20 MG Tablet PO (08:06)
[2020-05-11 08:19] LABS: ALB/GLOB Ratio 0.6 RATIO (0.9-2.4); AST(SGOT) 452 U/L (15-37); Alanine Aminotransfer ALT/SGPT 230 U/L (13-56); Albumin, Serum 2.5 g/dL (3.2-5.0); Alkaline Phosphatase 109 U/L (45-117); Anion Gap 8 (5-15); BUN 7 mg/dL (7-18); BUN/Creat Ratio 8.1 RATIO (10-20); Calcium,Total 7.9 mg/dL (8.5-10.1); Chloride 102 mmol/L (98-107); Creatinine, Serum 0.86 mg/dL (0.55-1.02); EST Glomerular Filtration Rate 74 mL/min (>60); Est Glom Filt Rate - Afr Amer 89 mL/min (>60); Estimated Creatinine Clearance 77.19 ml/min; Globulin 4.3 g/dL (2.2-4.2); Glucose 99 mg/dL (74-106); Potassium 3.7 mmol/L (3.5-5.1); Protein, Total 6.8 g/dL (6.4-8.2); Sodium Level 135 mmol/L (136-145)
--- NOTE | 2020-05-11 09:21 | PCM.CONS.B ---
- Consult Date of Consult: 05/11/20 - Reason for Consult Chief Complaint: abdominal pain History of Present Illness: 50 y/o WF with presents with right upper quadrant abdominal pain and elevated LFTs. CT scan did not reveal gallbladder disease, however, this was a non contrast CT scan. US RUQ is ordered and pending. Patient has known history of ETOH abuse and also drug abuse. She has a long history of medical non compliance as documented in her medical records. She also visits different EDs for her symptoms. She has had multiple visits to this ED for chest pain and SOB. She was to follow up at multiple pulmonology clinics in the area, but fails to do so. She has had previous diagnoses of COPD and PE. She still continues with TOB use and also marijuana use. There is a question of hepatic dysfunction, she has had history of persistent elevated LFTs, albeit present levels are higher, and has had elevated ammonia levels in the past She had a gallbladder US in May 2019 which revealed gallbladder polyps. She states that she had sudden onset of severe RUQ abdominal pain last night. She has had known RUQ abdominal since last year, but states that this was sharp and severe. It is worsened by movement and coughing (she has a chronic smoker's cough) She also notes nausea and emesis. (of note, she has a history of aspiration pneumonia in past due to ETOH blackout and subsequently developed a lung abscess) She complains of low grade temperature elevations. Denies obstructive biliary symptoms as icterus or jaundice. Past Medical History: hypothyroidism hypertension COPD GERD TOB abuse ETOH abuse known history of drug abuse Past Surgical History: Tonsillectomy JONAS/BSO back surgery x 2 carpal tunnel surgery history of foot fracture - no surgery Medications: Omeprazole [Prilosec] 40 mg PO DAILY Famotidine [Pepcid] 20 mg PO QHS Lisinopril [Zestril] 20 mg PO DAILY buPROPion XL [Wellbutrin Xl] 150 mg PO DAILY Ferrous Sulfate 325 mg PO BIDCM Atorvastatin Calcium [Lipitor] 40 mg PO QHS Cholecalciferol (Vitamin D3) 5,000 unit PO DAILY Furosemide [Lasix] 40 mg PO DAILY Fluoxetine [Prozac] 60 mg PO DAILY Lurasidone HCl [Latuda] 80 mg PO DAILY Levothyroxine [Synthroid] 25 mcg PO DAILY Albuterol Aerosols [Ventolin 2.5 mg INHALATION Q4H PRN PRN Albuterol Sulfate [Albuterol 2 puff IH TID PRN Baclofen 10 mg PO BID PRN Diclofenac [Voltaren] 75 mg PO BID Fluticasone/Vilanterol [Breo 1 ea IH DAILY Melatonin 5 mg PO QHS PRN Potassium Chloride 10 meq PO DAILY Pregabalin 150 mg PO TID Tiotropium [place] [Spiriva] 18 mcg IH DAILY Allergies: fentanyl, varenicline Social history: TOB use positive for heavy use ETOH use positive for abuse lives alone, sister Katalina in [place] Review of Systems: General - denies fevers, denies weight loss, denies anorexia Cardiovascular has chronic atypical chest pain - seen in ED multiple times for this, had normal cards cath 2013 Pulmonary - has TOB abuse, has chronic shortness of breath due to COPD, has had pneumonia in past, has had PE in past Gastrointestinal as per HPI, had colonoscopy/EGD 2014 Neurological history of CHI, has headaches, notes sleeping problems Genitourinary has had kidney stones, denies burning with urination, denies blood in urine Hematological notes easy bruising, denies spontaneous/prolonged bleeding Skin denies open non healing wounds, had skin grafts 2013 for [facility] Musculoskeletal has chronic back pain, has had foot fracture in past Endocrine has hypothyroidism, denies diabetes though has had elevated HgbA1c in past Psychological - has been hospitalized in psychiatric [facility] in past, has PTSD, has had detox in the past, has had use of ectasy/benzo abuse/ETOH abuse Physical examination: Vital signs Temp 99.4F HR 95 BP 147/92 Ht: 5'8 Wt: 192# General WD/WN WF in no apparent distress, appears older than stated age, alert and oriented, not septic appearing HEENT Normocephalic. EOM intact with sclera clear and no icterus noted. Neck is supple with no jugular venous distention noted. Trachea is midline. Lungs no labored breathing noted, such as retractions. No cough heard. Heart normal heart sounds, regular. Abdomen soft but tender in RUQ with no peritoneal signs, obese/protuberant. Extremities no calf tenderness noted. No pitting edema noted. Genitourinary/Rectal deferred Skin normal skin integrity. Neurological non focal. Psychological normal affect, patient is calm and appropriate Impression: RUQ abdominal pain elevated LFTs assumption of acute cholecystitis, cholelithiasis - US pending Discussion/Plan: I have discussed the above with the patient. Will await findings of US gallbladder, however, in the manner of expediency, I have tentatively placed her on the schedule for tomorrow for lap alicia. I have offered the patient the procedure of laparoscopic cholecystectomy possible cholangiograms. I have explained the procedure to the patient. I have counseled the patient as to the risks of the procedure, including but not limited to: infection, bleeding, injury to any blood vessels/nerves, scar tissue, injury to any intraabdominal organs, injury to kidney/ureters, injury to bowel/bladder, injury to the common bile duct/biliary tree, bile leakage, intraabdominal abscess/bleeding, hernias at incisional sites, wound infections, possible open procedure, complications of anesthesia, postoperative pneumonia/cardiac problems/blood clots etc. the patient understands. The patient was offered a surgery/procedure. The provider and patient have discussed in detail the risk of exposure to and/or potential harm posed by the COVID-19 virus with having a surgery/procedure at this time versus the risk of delaying the surgery/procedure. It is not possible to know either the risk of delaying the surgery or procedure or chance of getting an infection with perfect accuracy, but a joint decision was made between the patient and the provider to proceed at this time with the scheduled surgery/procedure. The patient wishes to proceed. Will plan on surgery as add on tomorrow, as stated above. Low fat diet today, continue antibiotics. IV hydration, NPO after MDNT. She is a narcotic risk, and therefore I have explained that I will only prescribed the routine amount of post operative pain medications. Because of her complaints of fevers/chills/cough and SOB (which are chronic) - a COVID test was ordered which was negative. Because of possible liver dysfunction, I have ordered a PT/INR, in anticipation for surgery. I contacted her sister Katalina, as per patient's request and informed her of the above. I have answered all questions to the patient?s satisfaction and the patient has no further questions.
--- NOTE | 2020-05-11 11:29 | PN_ITS ---
Patient Problems: Active and Suspected Problems Elevated LFTs (Acute) Acute cholecystitis (Acute) Subjective: Doing well. Pain is controlled today. Plan will be for OR tomorrow Vitals/I&O's: Vital Signs Temp Pulse Resp BP Pulse Ox 98.4 F 93 16 113/66 94 05/11/20 07:43 05/11/20 07:43 05/11/20 07:43 05/11/20 07:43 05/11/20 07:43 Oxygen Flow Rate (L/min) 2 Oxygen Delivery Method Nasal Cannula Weight: 194 lb 3.636 oz Body Mass Index (BMI) 29.5 Intake and Output for Last 24 Hours 05/09/20 05/10/20 05/11/20 23:59 23:59 23:59 Intake Total 1210 / 1210 1195.42 / 1195.42 Output Total 200 / 200 Balance 1210 / 1210 995.42 / 995.42 General: Alert, Oriented x3, Cooperative, No apparent distress HEENT: Atraumatic, PERRLA, EOMI, Normocephalic Oral: Moist Mucosa Neck: Supple, No JVD Lungs: Clear to auscultation, Normal air movement, No rhonchi, No wheeze, No rales, Diminished Cardiovascular: Regular rate, Regular Rhythm, Normal S1, Normal S2, No murmurs Abdomen: Soft, Non-Distended, No Hepato-splenomegaly, Tender - Mild tender to palpation in the right upper quadrant Extremities: No edema, Capillary Refill Less than 3 Seconds Skin: No rashes, No breakdown Neurological: Neuro grossly intact, Sensory exam intact to light touch and pain Psych/Mental Status: Normal Affect, Appropriate Laboratory Results 05/10/20 18:15: WBC 15.2 H, RBC 4.48, Hgb 14.9, Hct 43.7, MCV 97.5, MCH 33.3 H, MCHC 34.1, RDW Std Deviation 47.1 H, RDW Coeff of Sandeep 13.2, Plt Count 287, MPV 10.4, Immature Gran % (Auto) 0.300, Neut % (Auto) 79.0 H, Lymph % (Auto) 11.2 L, Cherry % (Auto) 8.8, Eos % (Auto) 0.2, Baso % (Auto) 0.5, Absolute Neuts (auto) 12.0 H, Absolute Lymphs (auto) 1.70, Nucleated RBC % 0 05/10/20 18:15: Sodium 134 L, Potassium 4.1, Chloride 99, Carbon Dioxide 24.0, Anion Gap 11, BUN 10, Creatinine 0.72, Estim Creat Clear Calc 92.20, Est GFR (MDRD) Af Amer 109, Est GFR (MDRD) Non-Af 90, BUN/Creatinine Ratio 13.8, Glucose 107 H, Calcium 8.6, Total Bilirubin 1.50 H, AST 554 H, ALT 277 H, Alkaline Phosphatase 122 H, Troponin I < 0.015, Total Protein 7.6, Albumin 3.0 L, Globulin 4.6 H, Albumin/Globulin Ratio 0.7 L, Lipase 170 05/10/20 18:15: Ethyl Alcohol 64.0 05/10/20 18:15: Phosphorus 3.0, Magnesium 1.9 05/10/20 19:40: COVID-19 (YANETH) Negative 05/11/20 01:00: Urine Color Yellow, Urine Clarity Clear, Urine pH 5.0, Ur Specific [place] 1.020, Urine Protein 30 H, Urine Glucose (UA) Normal, Urine Ketones 5 H, Urine Occult Blood Negative, Urine Nitrite Negative, Urine Bilirubin Negative, Urine Urobilinogen Normal, Ur Leukocyte Esterase 25 H, Urine RBC 0 SEEN, Urine WBC 0-5 SEEN, Ur Squamous Epith Cells 0-5 SEEN, Ur Transition Epith Cell 0-5 SEEN, Urine Bacteria 1+, Urine Mucus 0 SEEN 05/11/20 01:00: Urine Opiates Screen POSITIVE H, Urine Methadone Screen NEGATIVE, Ur Barbiturates Screen NEGATIVE, Ur Phencyclidine Scrn NEGATIVE, Ur Amphetamines Screen NEGATIVE, U Methamphetamin-MDMA POSITIVE H, U Benzodiazepines Scrn NEGATIVE, Urine Cocaine Screen NEGATIVE, U Cannabinoids Screen POSITIVE H, Ur Drug Screen Comment 05/11/20 06:30: WBC 12.2 H, RBC 3.88 L, Hgb 12.8, Hct 39.2, MCV 101.0 H, MCH 33.0 H, MCHC 32.7, RDW Std Deviation 49.8 H, RDW Coeff of Sandeep 13.4, Plt Count 181, MPV 10.8, Immature Gran % (Auto) 0.300, Neut % (Auto) 78.8 H, Lymph % (Auto) 11.6 L, Cherry % (Auto) 8.8, Eos % (Auto) 0.3, Baso % (Auto) 0.2, Absolute Neuts (auto) 9.6 H, Absolute Lymphs (auto) 1.42, Nucleated RBC % 0 05/11/20 06:30: Sodium 135 L, Potassium 3.7, Chloride 102, Carbon Dioxide 25.0, Anion Gap 8, BUN 7, Creatinine 0.86, Estim Creat Clear Calc 77.19, Est GFR (MDRD) Af Amer 89, Est GFR (MDRD) Non-Af 74, BUN/Creatinine Ratio 8.1 L, Glucose 99, Calcium 7.9 L, Total Bilirubin 1.90 H, AST 452 H, ALT 230 H, Alkaline Phosphatase 109, Total Protein 6.8, Albumin 2.5 L, Globulin 4.3 H, Albumin/Globulin Ratio 0.6 L Current Medications Acetaminophen (Acetaminophen 325 Mg Tablet) 650 mg PO Q6H PRN PRN PRN Reason: Pain Score 1-10/Temp > 100.7 F Last Admin: 05/11/20 02:39 Dose: 650 mg Documented by: Al Hydroxide/Mg Hydroxide (Mag Hydrox/Al Hydrox/Simeth 30 Ml Udc) 30 ml PO Q6H PRN PRN PRN Reason: Gastric Burning Albuterol Sulfate (Albuterol 2.5 Mg/3 Ml Vial.Neb.) 2.5 mg INHALATION Q2H PRN PRN PRN Reason: Dyspnea, wheezing Baclofen (Baclofen 10 Mg Tablet) 10 mg PO BID PRN PRN PRN Reason: Pain Score 1-10 Last Admin: 05/11/20 01:02 Dose: 10 mg Documented by: Bupropion HCl (Bupropion (Xl) 150 Mg Tablet.Xl) 150 mg PO DAILY [facility] Last Admin: 05/11/20 08:06 Dose: 150 mg Documented by: Ferrous Sulfate ([facility] S[facility] 325 Mg [facility]t) [facility] Last Admin: 05/11/20 08:05 Dose: 325 mg Documented by: Fluoxetine HCl (Fluoxetine 20 Mg Capsule) 60 mg PO DAILY [facility] Last Admin: 05/11/20 08:06 Dose: 60 mg Documented by: Folic Acid (Folic Acid 1 Mg Tablet) 1 mg PO DAILY@0800 [facility] Stop: 05/13/20 08:01 Last Admin: 05/11/20 08:05 Dose: 1 mg Documented by: Furosemide (Furosemide 40 Mg Tablet) 40 mg PO DAILY [facility] Last Admin: 05/11/20 08:06 Dose: 40 mg Documented by: Guaifenesin (Guaifenesin 10 Ml Udc (200mg/10ml)) 20 ml PO Q4H PRN PRN PRN Reason: COUGH Hydralazine HCl (Hydralazine 20 Mg/Ml Vial) 10 mg IV Q4H PRN PRN PRN Reason: SBP > 160 Hydromorphone HCl (Hydromorphone 0.5 Mg/0.5 Ml Syringe) 0.5 mg IV Q4H PRN PRN PRN Reason: Pain Score 6-10 Last Admin: 05/11/20 07:49 Dose: 0.5 mg Documented by: Sodium Chloride () 1,000 mls @ 125 mls/hr IV .Q8H [facility] Last Admin: 05/11/20 06:09 Dose: 125 mls/hr Documented by: Piperacillin Sod/Tazobactam (Sod 3.375 gm/ Sodium Chloride) 50 mls @ 12.5 mls/hr IV Q8 [facility] Last Infusion: 05/11/20 09:35 Dose: Infused Documented by: Pantoprazole Sodium 40 mg/ (Sodium Chloride) 110 mls @ 330 mls/hr IV Q12 [facility] Last Infusion: 05/11/20 10:06 Dose: Infused Documented by: Levothyroxine Sodium (Levothyroxine 25 Mcg Tablet) 25 mcg PO DAILY@0600 [facility] Last Admin: 05/11/20 05:10 Dose: 25 mcg Documented by: Lisinopril (Lisinopril 20 Mg Tablet) 20 mg PO DAILY [facility] Last Admin: 05/11/20 08:06 Dose: 20 mg Documented by: Lorazepam (Lorazepam 1 Mg Tablet) 2 mg PO Q2H PRN PRN; Protocol PRN Reason: CIWA score > 8 but <15 Lorazepam (Lorazepam 1 Mg Tablet) 2 mg PO UD PRN; Protocol PRN Reason: CIWA score >/=15. Lorazepam (Lorazepam 2 Mg/Ml Syringe) 2 mg IV Q2H PRN PRN; Protocol PRN Reason: CIWA score > 8 but <15 Lorazepam (Lorazepam 2 Mg/Ml Syringe) 2 mg IV UD PRN; Protocol PRN Reason: CIWA score >/=15. Melatonin (Melatonin 10 Mg Tablet) 5 mg PO QHS PRN PRN PRN Reason: SLEEP Last Admin: 05/11/20 01:02 Dose: 5 mg Documented by: Multivitamins/Minerals (Multivitamins,Ther W-Minerals Tablet) [facility] Last Admin: 05/11/20 08:04 Dose: Not Given Documented by: Nicotine (Nicotine 21 Mg Patch) 21 mg TRANSDERM. DAILY [facility] Last Admin: 05/11/20 09:45 Dose: 21 mg Documented by: Non-Formulary Medication (Lurasidone Hcl [Latuda]) 80 mg PO DAILY [facility] Ondansetron HCl (Ondansetron 4 Mg/2 Ml Vial) 4 mg IV Q8H PRN PRN PRN Reason: NAUSEA/VOMITING Last Admin: 05/11/20 07:37 Dose: 4 mg Documented by: Oxycodone HCl (Oxycodone 5 Mg Tablet) 5 mg PO Q4H PRN PRN PRN Reason: Pain Score 4-5 Oxycodone HCl (Oxycodone 5 Mg Tablet) 10 mg PO Q4H PRN PRN PRN Reason: Pain Score 6-10 Last Admin: 05/11/20 06:09 Dose: 10 mg Documented by: Potassium Chloride (Potassium Chloride 10 Meq Tablet) 10 meq PO DAILY [facility] Last Admin: 05/11/20 08:06 Dose: 10 meq Documented by: Pregabalin (Pregabalin 75 Mg Capsule) 150 mg PO TID [facility] Last Admin: 05/11/20 05:10 Dose: 150 mg Documented by: Prochlorperazine Edisylate (Prochlorperazine 10 Mg/2 Ml Vial) 5 mg IV Q4H PRN PRN PRN Reason: Breakthrough nausea/vomiting Sodium Chloride (0.9% Saline Lock 10 Ml Syringe) 10 - 40 ml IV UD PRN PRN Reason: SALINE FLUSH Temazepam (Temazepam 15 Mg Capsule) 15 mg PO QHS PRN PRN PRN Reason: INSOMNIA Thiamine HCl (Thiamine Hydrochloride 100 Mg Tablet) [facility] Stop: 05/13/20 17:01 Last Admin: 05/11/20 08:05 Dose: 100 mg Documented by: Throat Lozenges (Benzocaine/Menthol 1 Lozenge) 1 lozenge MUCOUS MEM Q2H PRN PRN PRN Reason: SORE THROAT STROKE Vital Signs/Narrative: Vital Signs Temp Pulse Resp BP Pulse Ox 05/11/20 07:43 98.4 F 93 16 113/66 94 Medical Necessity - Tobacco Use Smoking Status: Current every day smoker - Patient with ongoing 1 pack/day cigarette tobacco usage since she was a teenager. Tobacco Use: Cigarettes Assessment/Plan All Active Problems Elevated LFTs (Acute) Acute cholecystitis (Acute) 1. Acute cholecystitis -Continue with IV antibiotics -Appreciate surgical assistance, plan for OR tomorrow -Allow for a low-fat diet, continue IV fluids necessary 2. HTN/HLD/obesity -Blood pressure is stable -Continue with her home blood pressure medication -Continue statin 3. Chronic COPD not in exacerbation/SANA/tobacco abuse -Continue with home inhalers -Transient hypoxia is likely secondary to her pain medication and history of obstructive sleep apnea -Continue with 2 L nasal cannula at night which is what she uses at home -Encouraged tobacco cessation 4. Anxiety/depression -Stable -Continue with her home medications 5. Hypothyroidism -Stable -Continue with Synthroid 6. GERD -Stable -Continue PPI DVT: SCDs Inpatient E&M: 91401 Subs Hosp L2
[2020-05-11 12:21] LABS: Thyroid Stim Hormone (TSH) 2.09 uIU/mL (0.358-3.74)
[2020-05-11] MEDS: proCHLORPERazine 10 MG/2 ML Vial 5 MG IV (13:24)
[2020-05-11] MEDS: oxyCODONE 5 MG Tablet PO (13:35)
[2020-05-11] MEDS: 0.9% Normal Saline 1,000 ML 999 ML IV (15:21)
[2020-05-12] VITALS (12 sets, daily range): BP systolic 110–135; BP diastolic 65–89; PULSE 88–115; RESP 16–22; TEMP 36.2–37.7; O2SAT 94–98; BMI 29.5
--- NOTE | 2020-05-12 | GALL_PTH ---
PATIENT: KAMI JARQUIN GENE LOC: MS3 U#:[id number] AGE/SX: 50/F [facility]: Dr. Bam Espinosa DO : 1970 BED: 1 DIS: 05/13/2020 SPEC #: [id number] RECD: 05/12/20 15:50 STATUS: MIKE REQ #: [id number] JEREMY: 05/12/20 00:[address]: Gaye Gordon DEPT: SURGICAL PATHOLOGY RECD BY: Simon Kinney ENTERED: 05/13/20 08:06 SP TYPE: GALLBLTAISHA LAMAR DR: MD Dr. Bam Hill DO Dr. Linda Wang, MD Dr. William Lago, MD Tissues: Gallbladder, NOS Procedures: Surgery Specimen Level III Comments: @ Ordering doctor for SUIII edited from to DR.LWANG Fenton by ANA at 05/13/20 0939 @ Submitting doctor edited from to DR.LWANG Fenton by ANA at 05/13/20 0939 HEADER OPERATION: Laparoscopic cholecystectomy with IOC PRE-OP DIAGNOSIS: Acute cholecystitis TISSUE SUBMITTED: Gallbladder MICROSCOPIC DIAGNOSIS Gallbladder, cholecystectomy: Acute and chronic cholecystitis. No stones are identified in the container or in the gallbladder. SJ:cheyenne 05/14/20 MICROSCOPIC DESCRIPTION Slides are reviewed. GROSS DESCRIPTION Received is one container labeled with the patient's name and designated gallbladder. The specimen consists of a gallbladder measuring 8.5 x 4 x 2.5 cm. The external surface is smooth and glistening. Focally, it is granular, hemorrhagic and contains cautery artifact. The lumen of the gallbladder contains yellow-green mucoid bile. No stones are identified in the container or in the gallbladder. The mucosa is bile-stained and without any mass lesions. The gallbladder wall averages 0.5 cm in thickness and is free of mass lesions. Plant Technician sections of the gallbladder and the cystic duct at margin of resection are submitted in one cassette. / AM:cheyenne 05/13/20 TC:2 CPT: 95613
[2020-05-12] MEDS: 0.9% Normal Saline 1,000 ML 125 ML IV ×4 (01:24→22:56)
[2020-05-12] MEDS: Pregabalin 75 MG Capsule 150 MG PO ×3 (05:39→22:19)
[2020-05-12] MEDS: Levothyroxine 25 MCG TABLET PO (05:39)
--- NOTE | 2020-05-12 07:03 | US_ITS ---
STUDY: ULTRASOUND GALLBLADDER REASON FOR VISIT: Female, 50 years old. Nausea, right upper quadrant pain TECHNIQUE: Ultrasound evaluation of the gallbladder was performed with real-time and static humphrey-scale imaging. TECHNICAL QUALITY: Adequate. COMPARISON: CT 05/10/2020 FINDINGS: Gallbladder: Partially distended gallbladder. The gallbladder wall measures 4-5 mm. There is a positive sonographic Kennedy''s sign. There is pericholecystic fluid. There are no gallstones. Common Bile Duct (C.B.D.): The common bile duct measures 2 mm. The liver is enlarged and diffusely heterogeneous. Mild amount of ascites adjacent to the anterior liver. US/Gallbladder IMPRESSION: 1. Gallbladder wall thickening with pericholecystic fluid and positive sonographic KENNEDY sign suggesting acalculous cholecystitis. 2. Mild perihepatic ascites. 3. Hepatomegaly. Diffuse hepatic increased echogenicity most commonly associated with hepatic steatosis, although nonspecific. Electronically Signed: Ren Nicole MD ([place]) at 8:29 EST , Service support ,
[2020-05-12] MEDS: HYDROmorphone 0.5 MG/0.5 ML SYRINGE IV ×2 (08:16→18:22)
--- NOTE | 2020-05-12 08:45 | NM_ITS ---
Nuclear medicine HIDA scan Indication: Right upper quadrant pain COMPARISON STUDIES : NM - None. CR - Not available for review at this time. CT - Not available for review at this time. MR - Not available for review at this time. Ultrasound from today Technique: 5.7 mCi of technetium 99m labeled mebrofenin was injected intravenously followed by standard imaging. Findings: There is homogenous activity throughout the liver. Normal excretion of isotope into the proximal small bowel. Activity in the gallbladder is identified at 17 minutes. NM/Hepatobilliary Imaging IMPRESSION: No scintigraphic evidence of cholecystitis or biliary obstruction. Electronically Signed: Ren Nicole MD ([place]) at 11:23 EST , Service support ,
[2020-05-12 08:47] LABS: Absolute Lymphocyte Count 1.04 X10^3/uL (0.83-4.51); Absolute Neutrophil Count 9.1 X10^3/uL (2.0-7.7); Basophil# 0.03 X10^3/uL; Basophil% 0.3 % (0-1); Eosinophils% 0.9 % (0-5); Hematocrit 35.2 % (37-47); Hemoglobin 11.3 g/dL (12.0-15.0); Lymphocyte # 1.04 X10^3/ul (4.0); Lymphocyte % 9.1 % (19-41); Mean Corp Hgb Conc 32.1 g/dL (32-36); Mean Corpuscular Hgb 32.9 pg (27.0-32.0); Mean Corpuscular Volume 102.6 fL (81-99); Mean Platelet Vol. 10.6 fl (6.2-12.0); Monocyte% 9.7 % (0-10); NRBC Flagged by Analyzer 0 % (0-5); Neutrophil # 9.05 X10^3/uL (2.7-7.7); Neutrophil % 79.5 % (47-70); Platelet Count 146 K/mm3 (150-450); RBC Distribution Width CV 13.1 % (11.6-14.6); RBC Distribution Width SD 49.5 fl (35.1-43.9); Red Blood Count 3.43 M/mm3 (4.2-5.4); White Blood Count 11.4 K/mm3 (4.4-11.0)
[2020-05-12 09:02] LABS: Partial Thromboplast Time 32.8 Seconds (24.1-36.2)
[2020-05-12 09:14] LABS: Anion Gap 2 (5-15); BUN 4 mg/dL (7-18); Calcium,Total 7.8 mg/dL (8.5-10.1); Chloride 106 mmol/L (98-107); Creatinine, Serum 0.67 mg/dL (0.55-1.02); EST Glomerular Filtration Rate 99 mL/min (>60); Est Glom Filt Rate - Afr Amer 120 mL/min (>60); Estimated Creatinine Clearance 99.08 ml/min; Glucose 122 mg/dL (74-106); Potassium 3.8 mmol/L (3.5-5.1); Sodium Level 136 mmol/L (136-145)
--- NOTE | 2020-05-12 10:29 | NURSING ---
0930 pt transported off unit to [facility] via bed.
--- NOTE | 2020-05-12 10:40 | PCM.PN.HOSP ---
Patient Problems: Active and Suspected Problems Elevated LFTs (Acute) Acute cholecystitis (Acute) Reason for Visit: cholecystitis Subjective: still with abdominal pain, but overall better. Vitals/I&O's: Vital Signs Temp Pulse Resp BP Pulse Ox 37.7 C H 106 H 16 113/79 94 05/12/20 08:15 05/12/20 08:15 05/12/20 08:15 05/12/20 08:15 05/12/20 08:15 Oxygen Flow Rate (L/min) 2 Oxygen Delivery Method Nasal Cannula Weight: 88.1 kg Body Mass Index (BMI) 29.5 Intake and Output for Last 24 Hours 05/10/20 05/11/20 05/12/20 23:59 23:59 23:59 Intake Total 1210 / 1210 3955.42 / 3955.42 2099 Output Total 200 / 200 Balance 1210 / 1210 3755.42 / 3755.42 2099 General: Alert, No apparent distress, - - appears older than stated age. Neck: No Nodes, Thyroid Normal Size and Texture Lungs: Clear to auscultation, Normal air movement, No rhonchi, No wheeze, No rales Cardiovascular: Regular rate, Regular Rhythm, Normal S1, Normal S2 Abdomen: Non-Distended, Rebound Tenderness, Tender - RUQ Extremities: No edema, No Calf Tenderness Laboratory Results 05/11/20 07:24: TSH 2.09 05/11/20 12:30: PT 13.0, INR 1.0 05/12/20 08:30: WBC 11.4 H, RBC 3.43 L, Hgb 11.3 L, Hct 35.2 L, MCV 102.6 H, MCH 32.9 H, MCHC 32.1, RDW Std Deviation 49.5 H, RDW Coeff of Sandeep 13.1, Plt Count 146 L, MPV 10.6, Immature Gran % (Auto) 0.500, Neut % (Auto) 79.5 H, Lymph % (Auto) 9.1 L, Garrard % (Auto) 9.7, Eos % (Auto) 0.9, Baso % (Auto) 0.3, Absolute Neuts (auto) 9.1 H, Absolute Lymphs (auto) 1.04, Nucleated RBC % 0 05/12/20 08:30: Sodium 136, Potassium 3.8, Chloride 106, Carbon Dioxide 28.0, Anion Gap 2 L, BUN 4 L, Creatinine 0.67, Estim Creat Clear Calc 99.08, Est GFR (MDRD) Af Amer 120, Est GFR (MDRD) Non-Af 99, BUN/Creatinine Ratio 6.0 L, Glucose 122 H, Calcium 7.8 L 05/12/20 08:30: APTT 32.8 Current Medications Acetaminophen (Acetaminophen 325 Mg Tablet) 650 mg PO Q6H PRN PRN PRN Reason: Pain Score 1-10/Temp > 100.7 F Last Admin: 05/11/20 17:15 Dose: 650 mg Documented by: Al Hydroxide/Mg Hydroxide (Mag Hydrox/Al Hydrox/Simeth 30 Ml Udc) 30 ml PO Q6H PRN PRN PRN Reason: Gastric Burning Albuterol Sulfate (Albuterol 2.5 Mg/3 Ml Vial.Neb.) 2.5 mg INHALATION Q2H PRN PRN PRN Reason: Dyspnea, wheezing Baclofen (Baclofen 10 Mg Tablet) 10 mg PO BID PRN PRN PRN Reason: Pain Score 1-10 Last Admin: 05/11/20 01:02 Dose: 10 mg Documented by: Bupropion HCl (Bupropion (Xl) 150 Mg Tablet.Xl) 150 mg PO DAILY [facility] Last Admin: 05/11/20 08:06 Dose: 150 mg Documented by: Ferrous Sulfate (Ferrous Sulfate 325 Mg Tablet) [facility] Last Admin: 05/12/20 08:23 Dose: Not Given Documented by: Fluoxetine HCl (Fluoxetine 20 Mg Capsule) 60 mg PO DAILY [facility] Last Admin: 05/11/20 08:06 Dose: 60 mg Documented by: Folic Acid (Folic Acid 1 Mg Tablet) 1 mg PO DAILY@0800 [facility] Stop: 05/13/20 08:01 Last Admin: 05/12/20 08:23 Dose: Not Given Documented by: Guaifenesin (Guaifenesin 10 Ml Udc (200mg/10ml)) 20 ml PO Q4H PRN PRN PRN Reason: COUGH Hydralazine HCl (Hydralazine 20 Mg/Ml Vial) 10 mg IV Q4H PRN PRN PRN Reason: SBP > 160 Hydromorphone HCl (Hydromorphone 0.5 Mg/0.5 Ml Syringe) 0.5 mg IV Q4H PRN PRN PRN Reason: Pain Score 6-10 Last Admin: 05/12/20 08:16 Dose: 0.5 mg Documented by: Sodium Chloride () 1,000 mls @ 125 mls/hr IV .Q8H [facility] Last Infusion: 05/12/20 09:51 Dose: Infused Documented by: Piperacillin Sod/Tazobactam (Sod 3.375 gm/ Sodium Chloride) 50 mls @ 12.5 mls/hr IV Q8 [facility] Last Infusion: 05/12/20 09:39 Dose: Infused Documented by: Pantoprazole Sodium 40 mg/ (Sodium Chloride) 110 mls @ 330 mls/hr IV Q12 [facility] Last Infusion: 05/11/20 22:23 Dose: Infused Documented by: Levothyroxine Sodium (Levothyroxine 25 Mcg Tablet) 25 mcg PO DAILY@0600 [facility] Last Admin: 05/12/20 05:39 Dose: 25 mcg Documented by: Lisinopril (Lisinopril 20 Mg Tablet) 20 mg PO DAILY [facility] Last Admin: 05/11/20 08:06 Dose: 20 mg Documented by: Lorazepam (Lorazepam 1 Mg Tablet) 2 mg PO Q2H PRN PRN; Protocol PRN Reason: CIWA score > 8 but <15 Lorazepam (Lorazepam 1 Mg Tablet) 2 mg PO UD PRN; Protocol PRN Reason: CIWA score >/=15. Lorazepam (Lorazepam 2 Mg/Ml Syringe) 2 mg IV Q2H PRN PRN; Protocol PRN Reason: CIWA score > 8 but <15 Lorazepam (Lorazepam 2 Mg/Ml Syringe) 2 mg IV UD PRN; Protocol PRN Reason: CIWA score >/=15. Melatonin (Melatonin 10 Mg Tablet) 5 mg PO QHS PRN PRN PRN Reason: SLEEP Last Admin: 05/11/20 22:08 Dose: 5 mg Documented by: Multivitamins/Minerals (Multivitamins,Ther W-Minerals Tablet) [facility] Last Admin: 05/12/20 08:24 Dose: Not Given Documented by: Nicotine (Nicotine 21 Mg Patch) 21 mg TRANSDERM. DAILY [facility] Last Admin: 05/11/20 09:45 Dose: 21 mg Documented by: Non-Formulary Medication (Lurasidone Hcl [Latuda]) 80 mg PO DAILY [facility] Ondansetron HCl (Ondansetron 4 Mg/2 Ml Vial) 4 mg IV Q8H PRN PRN PRN Reason: NAUSEA/VOMITING Last Admin: 05/11/20 07:37 Dose: 4 mg Documented by: Oxycodone HCl (Oxycodone 5 Mg Tablet) 5 mg PO Q4H PRN PRN PRN Reason: Pain Score 4-5 Last Admin: 05/11/20 13:35 Dose: 5 mg Documented by: Oxycodone HCl (Oxycodone 5 Mg Tablet) 10 mg PO Q4H PRN PRN PRN Reason: Pain Score 6-10 Last Admin: 05/11/20 22:08 Dose: 10 mg Documented by: Potassium Chloride (Potassium Chloride 10 Meq Tablet) 10 meq PO DAILY [facility] Last Admin: 05/11/20 08:06 Dose: 10 meq Documented by: Pregabalin (Pregabalin 75 Mg Capsule) 150 mg PO TID [facility] Last Admin: 05/12/20 05:39 Dose: 150 mg Documented by: Prochlorperazine Edisylate (Prochlorperazine 10 Mg/2 Ml Vial) 5 mg IV Q4H PRN PRN PRN Reason: Breakthrough nausea/vomiting Last Admin: 05/11/20 13:24 Dose: 5 mg Documented by: Sodium Chloride (0.9% Saline Lock 10 Ml Syringe) 10 - 40 ml IV UD PRN PRN Reason: SALINE FLUSH Temazepam (Temazepam 15 Mg Capsule) 15 mg PO QHS PRN PRN PRN Reason: INSOMNIA Thiamine HCl (Thiamine Hydrochloride 100 Mg Tablet) 100 mg PO BIDCM [facility] Stop: 05/13/20 17:01 Last Admin: 05/12/20 08:24 Dose: Not Given Documented by: Throat Lozenges (Benzocaine/Menthol 1 Lozenge) 1 lozenge MUCOUS MEM Q2H PRN PRN PRN Reason: SORE THROAT STROKE Vital Signs/Narrative: Vital Signs Temp Pulse Resp BP Pulse Ox 05/12/20 08:15 37.7 C H 106 H 16 113/79 94 Medical Necessity - Tobacco Use Smoking Status: Current every day smoker Tobacco Use: Cigarettes Assessment/Plan All Active Problems Elevated LFTs (Acute) Acute cholecystitis (Acute) 1. Acute cholecystitis US showed GB wall thickening HIDA ordered lap alicia scheduled for today on pip/tazo monitor LFTs 2. COPD stable 3. HTN stable 4. VTE prophylaxis: SCDs Inpatient E&M: 11811 Subs Hosp L2
[2020-05-12] MEDS: 0.9% Saline Lock 10 ML Syringe IV (11:10)
--- NOTE | 2020-05-12 11:40 | CASEMGMT ---
RN SAUL Face to Face with patient for initial transition planning/care coordination assessment. RN CM introduced self and role at [facility]. Patient lying in bed, alert and oriented. Patient willing to participate in assessment and is able to answer all questions appropriately. Care providers, pharmacy, and demographics verified. Patient wishes to discharge home, denies need for home health at this time. Patient states she has no further needs or concerns at this time. CM to follow for discharge planning needs that may arise. PCP: Mihaela Specialists: None Preferred Pharmacy: [facility] Insurance: [employer] Prescription Benefit: yes Living Will/HPOA: none LNOK: sisters Living Arrangements: Patient lives alone in 2nd floor apartment with elevator to enter apartment. Transportation: Provide a ride DME/HHC: patient states she has shower chair, grab bars, cane, rollator, and oxygen 2 lpm at through [facility]. Patient has had [facility] in the past. Disposition Plan: Patient to discharge home with family support and follow-up plans in place. Francisca MUSE, RN, CM
--- NOTE | 2020-05-12 12:05 | CASEMGMT ---
Social Work Note SW received consult for substance abuse. SW reviewed pt's chart. Pt has history of Polysubstance abuse (ETOH, Cocaine). Pt currently still uses ETOH and cigarettes. Pt with history of anxiety, depression, PTSD. SW in to speak with pt. SW introduced self and role at [facility]. Pt is alert and orientated x3. Pt states that she is waiting to hear from anesthesiologist regarding surgery. Pt confirms history of anxiety, depression and PTSD. Pt states she is active with psychiatrist and counselor at [facility]. Pt states her psychiatrist is Dr. Mignon Garay and goes to see the psychiatrist 1x every 3 months. Pt stats her counselor is Renata and she goes to see her every other week. Pt states she is on medications that are prescribed through her psychiatrist. Pt states she thinks that her symptoms are being well managed. Pt denied any history of suicidal thoughts/plans/ideations. Pt states history of homicidal thoughts/plans/ideations. Pt states it's been years ago since last homicidal thought. Pt denied any current suicidal/homicidal thoughts/plans/ideations. Pt states she currently smokes cigarettes and marijuana. Pt states she smokes 1 pack of cigarettes a day. Pt states she drinks beer daily. Pt states it depends on the amount she drinks. Pt states she could drink a 6 pack or a 12 pack. SW asked pt if she wanted additional substance abuse resources and pt denied. Pt denied additional needs or concerns at this time. Francisca Hawkins DAIRY TECHNOLOGIST, [employer] REPA[employer]
--- NOTE | 2020-05-12 12:21 | NURSING ---
pt spoke with Dr Gordon regarding HIDA scan and gallbladder U/S results. pt and Dr Gordon discussed proceeding with surgery or attempting other treatments for abd pain. pt is requesting to speak with anesthesia regarding risks of general anesthesia with her COPD and chronic lung issues. Naomi in AC notified of all of above.
--- NOTE | 2020-05-12 12:38 | NURSING ---
pt transported off unit via bed at this time
[2020-05-12] MEDS: Ipratropium/Albuterol Sulfate 3 ML AMPUL.NEB INHALATION (13:17)
--- NOTE | 2020-05-12 13:44 | PCM.PN.BLA ---
Progress Note I have discussed the findings with the patient. The Ultrasound reveals no stones, but she does have a thickened gallbladder wall, this may also be due to her chronic liver disease. There is pericholecystic fluid, but this may also be due to ascites. A HIDA scan was obtained which revealed no cholecystitis. I have offered gallbladder surgery based upon her symptoms (she still notes severe RUQ abdominal pain, despite given meds in the hospital), however, I have counseled her that surgery may not alleviate her pain, and I will only prescribe her the normal amount of pain medications that I prescribe to all patient with similar presentation. I had offered her the following choices - laparoscopic cholecystectomy versus percutaneous drainage with cholecystotomy versus return to home with antibiotics. She opts for gallbladder surgery. I have explained the procedure to the patient. I have told her the risks of surgery, including but not limited to: infection, bleeding, injury to any intraabdominal organs such as liver/spleen, injury to bowel/bladder, injury to bile ducts, bile leak, intraabdominal abscess/bleeding, trocar hernias, wound infection, possibility of stroke/UT/PE/etc - she understands. The patient was offered a surgery/procedure. The provider and patient have discussed in detail the risk of exposure to and/or potential harm posed by the COVID-19 virus with having a surgery/procedure at this time versus the risk of delaying the surgery/procedure. It is not possible to know either the risk of delaying the surgery or procedure or chance of getting an infection with perfect accuracy, but a joint decision was made between the patient and the provider to proceed at this time with the scheduled surgery/procedure. She wishes to proceed. I tried contacting patient's sister Katalina, but there was no answer and I did not leave a message as there was no identifier. STROKE Vital Signs/Narrative: Vital Signs Temp Pulse Resp BP Pulse Ox 05/12/20 13:17 94 18 05/12/20 11:30 99.0 F 101 H 16 115/80 95
--- NOTE | 2020-05-12 15:15 | PCM.OPRPT ---
Report of Operation Date of Procedure: 05/12/20 Pre-Operative Diagnosis: RUQ abdominal pain, abnormal US of gallbladder, leukocytosis Post-Operative Diagnosis: acute acalculus cholecystitis Surgery/Procedure Performed:: laparoscopic cholecystectomy Description of Surgical Findings:: thickened gallbladder wall with areas of gangrene, enlarged liver with fatty infiltration changes, ascites continuous vulcanizing machine operator: Isa Hassan D Type of Anesthesia:: General Anesthesiologist: Echo Marquez Specimen's removed: gallbladder and contents Drains: 15 Fr passive drain in RUQ of abdomen Estimated Blood Loss (mL): < 5 ml Fluids Replaced: 1000 ml RL Description of Procedure: After informed consent was given, the patient was brought to the Operating Room. Appropriate time out protocol was followed. The patient was placed in the supine position. The patient was then placed under general endotracheal anesthesia by the anesthesia provider. The abdomen was then prepped with a sterile surgical skin preparation and sterile surgical drapes were placed. An area superior to the umbilical dimple was grasped with penetrating clamps and the skin and subcutaneous tissues were infiltrated with 0.25% marcaine with epinephrine. A skin incision was then made with a 15 blade scalpel. The anterior abdominal wall was elevated and a Veress needle was carefully inserted into the intraabdominal cavity. It was checked to be in the proper position with a normal saline drop test. A CO2 pneumoperitoneum was then created. Once this was achieved, then the Veress needle was removed and an 11mm trocar was placed in its stead. A 10mm laparoscope was then inserted into the trocar and careful attention was directed to the intraabdominal contents. There was no evidence of injury to any intraabdominal organs from insertion of the Veress needle or the trocar. Under direct visualization, a 5mm subxiphoid trocar and two lateral 5mm right subcostal trocars were placed. The skin and subcutaneous tissues at these sites were infiltrated with 0.25% marcaine with epinephrine prior to placement of these trocars. Attention was then directed to the right upper quadrant of the abdomen. The liver was noted to be enlarged with a blunt edge and changes of the parenchyma consistent with fatty liver disease. Also there was ascites in the abdomen, difficult to determine if this is due to the gallbladder versus liver disease. Graspers were placed in the lateral trocars to grasp the distal aspect of the gallbladder and direct it cephalad and to grasp the gallbladder at Ayoub?s pouch and direct it laterally. Dissection then began on the proximal gallbladder continuing down to the area of the triangle of Calot to bluntly dissect out the cystic duct. The neck of the gallbladder was identified and blunt dissection continued to dissect out a segment of the cystic duct. A clip was then placed on the neck of the gallbladder. Two clips were placed proximally and then the cystic duct was then transected. The cystic artery was visualized and bluntly isolated and then two clips were placed proximally and one clip distally and then it was transected between the proximal and distal clips. The gallbladder was then from the liver bed using electrocautery. Of note, the wall was thickened and edematous. Once from the liver bed, the gallbladder was brought out via the umbilical port in an Endobag. It was then forwarded to pathology for analysis. The liver bed was carefully examined. There was no evidence of bile leakage or bleeding. The cystic duct stump and cystic artery stump had their clips intact and there was no evidence of bile leakage or bleeding. The area was vigorously irrigated with normal saline and all irrigant was aspirated out. The remainder of the abdomen was grossly normal. The CO2 was released and all trocars removed intact. The periumbilical fascia was approximated with a stromi-do-sfchk 0 vicryl suture. All skin incision were closed with 4-0 monocryl in a subdermal fashion. Cavilol and Steristrips were used to reinforce the skin closure. Sterile dressings were applied to all wounds. Sponge, needle and instrument count was verified and correct at time of skin closure. The patient was extubated and brought to the Recovery Room in stable condition. - Complications none noted - Admit VTE Documentation VTE Present on Admission: Yes VTE Mechan Device Prophylaxis: SCD's
[2020-05-12] MEDS: Bupiv/Epi 0.25% 30 ML Vial (15:19)
[2020-05-12] MEDS: FLUoxetine 20 MG Capsule 60 MG PO (16:42)
[2020-05-12] MEDS: Thiamine Hydrochloride 100 MG Tablet PO (16:42)
[2020-05-12] MEDS: Ferrous Sulfate 325 MG Tablet PO (16:42)
[2020-05-12] MEDS: Lisinopril 20 MG Tablet PO (16:42)
[2020-05-12] MEDS: buPROPion (XL) 150 MG TABLET.XL PO (16:43)
[2020-05-12] MEDS: oxyCODONE 5 MG Tablet 10 MG PO ×2 (16:45→20:48)
--- NOTE | 2020-05-12 17:11 | DCINST_ITS ---
Discharge Diet: No Restrictions - avoid carbonated beverages for 1-2 days, as bloating may occur and make you feel more uncomfortable Discharge Activity: Return to Normal Activity, May not drive while taking narcotic pain medications. Lifting Restrictions: no lifting greater than 20 pounds for two weeks Call your doctor if your incision/area has: Continuous Slow Oozing, Foul Smelling Discharge Drain: Suction Additional Instructions: Recommended pain control regimen - May take 600 mg ibuprofen (Motrin) and then in 3-4 hours, may take 650 mg acetaminophen (Tylenol), then in 3-4 hours may take 600 mg ibuprofen, then in 3- 4 hours may take 650 mg acetaminophen and so on for 2-3 days May take narcotic pain medication for pain that is not controlled by above and at night for comfort through the night Leave dressings in place - empty drain and reconstitute the bulb suction as shown by the nurse - may have leakage around the drain - this is normal - can apply additional dressings to the area to reinforce the dressings Sponge bathe only as long as the drain is in place Do not soak - no tub baths/swimming Follow up in my office on Tuesday, May 19, for consideration of drain removal Allergies/Adverse Reactions: Allergies fentanyl Adverse Reaction (Verified 05/10/20 21:39) Anaphylaxis varenicline [From Chantix] Adverse Reaction (Verified 05/10/20 21:39) hallucinations Medications to take at Discharge Omeprazole [Prilosec] 40 mg PO DAILY 11/13/15 Famotidine [Pepcid] 20 mg PO QHS 12/18/15 Lisinopril [Zestril] 20 mg PO DAILY 12/18/15 buPROPion XL [Wellbutrin Xl] 150 mg PO DAILY 01/29/16 Ferrous Sulfate 325 mg PO BIDCM 03/04/16 Atorvastatin Calcium [Lipitor] 40 mg PO QHS 10/05/16 Cholecalciferol (Vitamin D3) [Vitamin D3] 5,000 unit PO DAILY 10/05/16 Furosemide [Lasix] 40 mg PO DAILY 10/05/16 Fluoxetine [Prozac] 60 mg PO DAILY 12/16/16 Lurasidone HCl [Latuda] 80 mg PO DAILY 12/16/16 Levothyroxine [Synthroid] 25 mcg PO DAILY 02/28/17 Albuterol Aerosols [Ventolin Aerosols] 2.5 mg INHALATION Q4H PRN PRN 12/07/19 Albuterol Sulfate [Albuterol Sulfate HFA] 2 puff IH TID PRN 12/07/19 Baclofen 10 mg PO BID PRN 12/07/19 Diclofenac [Voltaren] 75 mg PO BID 12/07/19 Fluticasone/Vilanterol [Breo Ellipta 200-25 Mcg INH] 1 ea IH DAILY 12/07/19 Melatonin 5 mg PO QHS PRN 12/07/19 Potassium Chloride 10 meq PO DAILY 12/07/19 Pregabalin 150 mg PO TID 12/07/19 Tiotropium [place] [Spiriva] 18 mcg IH DAILY 05/10/20 Oxycodone [Oxyir] 5 mg PO Q12H PRN PRN 5 Days #10 tab 05/12/20 The following prescriptions were given: Oxycodone [Oxyir] 5 mg PO Q12H PRN PRN 5 Days #10 tab PRN Reason: Pain Score 6-10 Transmission Status: Received by [facility] Primary Care Physician: Memo Chairez MD [Primary Care Provider] - Test Results: Test results from this visit will be discussed in further detail at your follow- up appointment, if applicable. Please Follow Up With: Gaye Gordon MD - When: to be seen on May 19 at 1:00
--- NOTE | 2020-05-12 18:39 | NURSING ---
pt reports that she cannot remember if she had the flu shot this year, she states Dr Palomares's office would have it on file, please address prior to DC.
[2020-05-12] MEDS: MELATONIN 10 MG TABLET 5 MG PO (22:32)
[2020-05-13] MEDS: oxyCODONE 5 MG Tablet 10 MG PO ×3 (03:45→12:01)
[2020-05-13 04:00] VITALS: BP 128/95; PULSE 83; RESP 16; TEMP 36.8; O2SAT 94
[2020-05-13 05:38] LABS: Absolute Lymphocyte Count 0.49 X10^3/uL (0.83-4.51); Absolute Neutrophil Count 7.8 X10^3/uL (2.0-7.7); Hematocrit 36.8 % (37-47); Hemoglobin 11.4 g/dL (12.0-15.0); Lymphocyte # 0.49 X10^3/ul (4.0); Lymphocyte % 5.5 % (19-41); Mean Corpuscular Hgb 32.7 pg (27.0-32.0); Mean Corpuscular Volume 105.4 fL (81-99); Mean Platelet Vol. 10.9 fl (6.2-12.0); Monocyte# 0.57 X10^3/uL; Monocyte% 6.4 % (0-10); NRBC Flagged by Analyzer 0 % (0-5); Neutrophil % 87.5 % (47-70); POSITIVE DIFFERENTIAL YES; Platelet Count 171 K/mm3 (150-450); RBC Distribution Width CV 13.2 % (11.6-14.6); Red Blood Count 3.49 M/mm3 (4.2-5.4); White Blood Count 8.9 K/mm3 (4.4-11.0)
[2020-05-13 05:56] LABS: Differential Indicated SCAN CRITERIA MET
[2020-05-13 06:02] LABS: ALB/GLOB Ratio 0.5 RATIO (0.9-2.4); AST(SGOT) 162 U/L (15-37); Alanine Aminotransfer ALT/SGPT 139 U/L (13-56); Albumin, Serum 2.1 g/dL (3.2-5.0); Alkaline Phosphatase 81 U/L (45-117); Anion Gap 2 (5-15); BUN 2 mg/dL (7-18); Calcium,Total 8.2 mg/dL (8.5-10.1); Chloride 107 mmol/L (98-107); Creatinine, Serum 0.68 mg/dL (0.55-1.02); EST Glomerular Filtration Rate 97 mL/min (>60); Est Glom Filt Rate - Afr Amer 118 mL/min (>60); Estimated Creatinine Clearance 97.62 ml/min; Globulin 4.2 g/dL (2.2-4.2); Glucose 148 mg/dL (74-106); Potassium 4.3 mmol/L (3.5-5.1); Protein, Total 6.3 g/dL (6.4-8.2); Sodium Level 136 mmol/L (136-145)
[2020-05-13] MEDS: Levothyroxine 25 MCG TABLET PO (06:24)
[2020-05-13] MEDS: Pregabalin 75 MG Capsule 150 MG PO (06:24)
[2020-05-13 06:39] LABS: Differential Comment SCANNED
[2020-05-13] MEDS: 0.9% Normal Saline 1,000 ML 125 ML IV (06:48)
[2020-05-13 07:53] VITALS: BP 128/89; PULSE 81; RESP 18; TEMP 36.2; O2SAT 92
[2020-05-13] MEDS: FLUoxetine 20 MG Capsule 60 MG PO (07:56)
[2020-05-13] MEDS: Ferrous Sulfate 325 MG Tablet PO (07:57)
[2020-05-13] MEDS: Lisinopril 20 MG Tablet PO (07:57)
[2020-05-13] MEDS: Folic Acid 1 MG Tablet PO (07:57)
[2020-05-13] MEDS: Thiamine Hydrochloride 100 MG Tablet PO (07:57)
[2020-05-13] MEDS: Multivitamins,Ther W-Minerals Tablet 1 TABLET PO (07:57)
[2020-05-13] MEDS: buPROPion (XL) 150 MG TABLET.XL PO (07:58)
[2020-05-13] MEDS: LURASIDONE HCL 40 MG TABLET 80 MG PO (09:10)
[2020-05-13] MEDS: Acetaminophen 325 MG Tablet 650 MG PO (11:10)
--- NOTE | 2020-05-13 11:35 | PN.SURG_ITS ---
Patient Problems: Active and Suspected Problems Elevated LFTs (Acute) Acute cholecystitis (Acute) Subjective: complaint of abdominal pain - tolerating diet, passing flatus copious output via YURIY drain - Physical Exam Vitals/I&O's: Vital Signs Temp Pulse Resp BP Pulse Ox 97.1 F L 81 18 128/89 H 92 05/13/20 07:53 05/13/20 07:53 05/13/20 07:53 05/13/20 07:53 05/13/20 07:53 Oxygen Flow Rate (L/min) 2 Oxygen Delivery Method Room Air Weight: 88.1 kg Body Mass Index (BMI) 29.5 Intake and Output for Last 24 Hours 05/11/20 05/12/20 05/13/20 23:59 23:59 23:59 Intake Total 3955.42 / 3955.42 5028.33 / 5028.33 2367.91 / 2367.91 Output Total 200 / 200 3310 / 3310 1365 / 1365 Balance 3755.42 / 3755.42 1718.33 / 1718.33 1002.91 / 1002.91 General: Alert HEENT: Atraumatic Oral: Moist Mucosa Neck: Supple Lungs: Normal air movement Abdomen: Bowel Sounds Present, Soft, - - dressings intact, serosanguinous drainage via YURIY catheter Laboratory Results 05/10/20 18:15: Hepatitis A IgM Ab Pending, Hep Bs Antigen Pending, Hep B Core IgM Ab Pending, Hepatitis C Ab (EIA) Pending 05/13/20 05:25: WBC 8.9, RBC 3.49 L, Hgb 11.4 L, Hct 36.8 L, MCV 105.4 H, MCH 32.7 H, MCHC 31.0 L, RDW Std Deviation 51.0 H, RDW Coeff of Sandeep 13.2, Plt Count 171, MPV 10.9, Immature Gran % (Auto) 0.600, Neut % (Auto) 87.5 H, Lymph % (Auto) 5.5 L, [place] % (Auto) 6.4, Eos % (Auto) 0.0, Baso % (Auto) 0.0, Absolute Neuts (auto) 7.8 H, Absolute Lymphs (auto) 0.49 L, Nucleated RBC % 0, Differential Comment SCANNED 05/13/20 05:25: Sodium 136, Potassium 4.3, Chloride 107, Carbon Dioxide 27.0, Anion Gap 2 L, BUN 2 L, Creatinine 0.68, Estim Creat Clear Calc 97.62, Est GFR (MDRD) Af Amer 118, Est GFR (MDRD) Non-Af 97, BUN/Creatinine Ratio 3.0 L, Glucose 148 H, Calcium 8.2 L, Total Bilirubin 0.60, AST 162 H, ALT 139 H, Alkaline Phosphatase 81, Total Protein 6.3 L, Albumin 2.1 L, Globulin 4.2, Albumin/Globulin Ratio 0.5 L Current Medications Acetaminophen (Acetaminophen 325 Mg Tablet) 650 mg PO Q6H PRN PRN PRN Reason: Pain Score 1-10/Temp > 100.7 F Last Admin: 05/13/20 11:10 Dose: 650 mg Documented by: Al Hydroxide/Mg Hydroxide (Mag Hydrox/Al Hydrox/Simeth 30 Ml Udc) 30 ml PO Q6H PRN PRN PRN Reason: Gastric Burning Albuterol Sulfate (Albuterol 2.5 Mg/3 Ml Vial.Neb.) 2.5 mg INHALATION Q2H PRN PRN PRN Reason: Dyspnea, wheezing Baclofen (Baclofen 10 Mg Tablet) 10 mg PO BID PRN PRN PRN Reason: Pain Score 1-10 Last Admin: 05/11/20 01:02 Dose: 10 mg Documented by: Bupropion HCl (Bupropion (Xl) 150 Mg Tablet.Xl) 150 mg PO DAILY [facility] Last Admin: 05/13/20 07:58 Dose: 150 mg Documented by: Ferrous Sulfate (Ferrous Sulfate 325 Mg Tablet) [facility] Last Admin: 05/13/20 07:57 Dose: 325 mg Documented by: Fluoxetine HCl (Fluoxetine 20 Mg Capsule) 60 mg PO DAILY [facility] Last Admin: 05/13/20 07:56 Dose: 60 mg Documented by: Guaifenesin (Guaifenesin 10 Ml Udc (200mg/10ml)) 20 ml PO Q4H PRN PRN PRN Reason: COUGH Hydralazine HCl (Hydralazine 20 Mg/Ml Vial) 10 mg IV Q4H PRN PRN PRN Reason: SBP > 160 Hydromorphone HCl (Hydromorphone 0.5 Mg/0.5 Ml Syringe) 0.5 mg IV Q4H PRN PRN PRN Reason: Pain Score 6-10 Last Admin: 05/12/20 18:22 Dose: 0.5 mg Documented by: Sodium Chloride () 1,000 mls @ 125 mls/hr IV .Q8H [facility] Last Infusion: 05/13/20 11:17 Dose: Infused Documented by: Piperacillin Sod/Tazobactam (Sod 3.375 gm/ Sodium Chloride) 50 mls @ 12.5 mls/hr IV Q8 [facility] Last Infusion: 05/13/20 10:30 Dose: Infused Documented by: Pantoprazole Sodium 40 mg/ (Sodium Chloride) 110 mls @ 330 mls/hr IV Q12 [facility] Last Infusion: 05/13/20 08:22 Dose: Infused Documented by: Levothyroxine Sodium (Levothyroxine 25 Mcg Tablet) 25 mcg PO DAILY@0600 [facility] Last Admin: 05/13/20 06:24 Dose: 25 mcg Documented by: Lisinopril (Lisinopril 20 Mg Tablet) 20 mg PO DAILY [facility] Last Admin: 05/13/20 07:57 Dose: 20 mg Documented by: Lorazepam (Lorazepam 1 Mg Tablet) 2 mg PO Q2H PRN PRN; Protocol PRN Reason: CIWA score > 8 but <15 Lorazepam (Lorazepam 1 Mg Tablet) 2 mg PO UD PRN; Protocol PRN Reason: CIWA score >/=15. Lorazepam (Lorazepam 2 Mg/Ml Syringe) 2 mg IV Q2H PRN PRN; Protocol PRN Reason: CIWA score > 8 but <15 Lorazepam (Lorazepam 2 Mg/Ml Syringe) 2 mg IV UD PRN; Protocol PRN Reason: CIWA score >/=15. Melatonin (Melatonin 10 Mg Tablet) 5 mg PO QHS PRN PRN PRN Reason: SLEEP Last Admin: 05/12/20 22:32 Dose: 5 mg Documented by: Multivitamins/Minerals (Multivitamins,Ther W-Minerals Tablet) [facility] Last Admin: 05/13/20 07:57 Dose: 1 tablet Documented by: Nicotine (Nicotine 21 Mg Patch) 21 mg TRANSDERM. DAILY [facility] Last Admin: 05/13/20 07:56 Dose: 21 mg Documented by: Ondansetron HCl (Ondansetron 4 Mg/2 Ml Vial) 4 mg IV Q8H PRN PRN PRN Reason: NAUSEA/VOMITING Last Admin: 05/11/20 07:37 Dose: 4 mg Documented by: Oxycodone HCl (Oxycodone 5 Mg Tablet) 5 mg PO Q4H PRN PRN PRN Reason: Pain Score 4-5 Last Admin: 05/11/20 13:35 Dose: 5 mg Documented by: Oxycodone HCl (Oxycodone 5 Mg Tablet) 10 mg PO Q4H PRN PRN PRN Reason: Pain Score 6-10 Last Admin: 05/13/20 07:55 Dose: 10 mg Documented by: Potassium Chloride (Potassium Chloride 10 Meq Tablet) 10 meq PO DAILY [facility] Last Admin: 05/13/20 07:57 Dose: 10 meq Documented by: Pregabalin (Pregabalin 75 Mg Capsule) 150 mg PO TID [facility] Last Admin: 05/13/20 06:24 Dose: 150 mg Documented by: Prochlorperazine Edisylate (Prochlorperazine 10 Mg/2 Ml Vial) 5 mg IV Q4H PRN PRN PRN Reason: Breakthrough nausea/vomiting Last Admin: 05/11/20 13:24 Dose: 5 mg Documented by: Sodium Chloride (0.9% Saline Lock 10 Ml Syringe) 10 - 40 ml IV UD PRN PRN Reason: SALINE FLUSH Last Admin: 05/12/20 11:10 Dose: 20 ml Documented by: Temazepam (Temazepam 15 Mg Capsule) 15 mg PO QHS PRN PRN PRN Reason: INSOMNIA Thiamine HCl (Thiamine Hydrochloride 100 Mg Tablet) 100 mg PO BIDCM [facility] Stop: 05/13/20 17:01 Last Admin: 05/13/20 07:57 Dose: 100 mg Documented by: Throat Lozenges (Benzocaine/Menthol 1 Lozenge) 1 lozenge MUCOUS MEM Q2H PRN PRN PRN Reason: SORE THROAT Medical Necessity - Tobacco Use Smoking Status: Current every day smoker Tobacco Use: Cigarettes Assessment/Plan All Active Problems Elevated LFTs (Acute) Acute cholecystitis (Acute) Impression: POD#1 s/p laparoscopic cholecystectomy Plan: patient will have more abdominal pain than normal due to drug addiction, I have told her that I will give her appropriate amount of pain medications for this procedure copious output via YURIY drain -probable ascites - patient with known liver dysfunction - probable undiagnosed portal hypertension can discharge to home from surgery standpoint
--- NOTE | 2020-05-13 12:22 | PCM.DC ---
- Discharge Diagnoses Current Active Problems: Current Active and Chronic Problems Anxiety and depression (Chronic) HLD (hyperlipidemia) (Chronic) Tobacco use (Chronic) Elevated LFTs (Acute) Acute cholecystitis (Acute) SANA (obstructive sleep apnea) (Chronic) Hypothyroidism (Chronic) Alcohol abuse (Chronic) Hypertension (Chronic) COPD (chronic obstructive pulmonary disease) with emphysema (Chronic) Back pain (Chronic) PTSD (post-traumatic stress disorder) (Chronic) Chronic GERD (Chronic) You will use the following diet at home:: No restrictions Discharge Activity: Return to Normal Activity, May not drive while taking narcotic pain medications. Call your doctor if your incision/area has: Continuous Slow Oozing, Foul Smelling Discharge Drain: Suction Allergies/Adverse Reactions: Allergies fentanyl Adverse Reaction (Verified 05/10/20 21:39) Anaphylaxis varenicline [From Chantix] Adverse Reaction (Verified 05/10/20 21:39) hallucinations Medications to take at Discharge Omeprazole [Prilosec] 40 mg PO DAILY 11/13/15 Famotidine [Pepcid] 20 mg PO QHS 12/18/15 Lisinopril [Zestril] 20 mg PO DAILY 12/18/15 buPROPion XL [Wellbutrin Xl] 150 mg PO DAILY 01/29/16 Ferrous Sulfate 325 mg PO BIDCM 03/04/16 Atorvastatin Calcium [Lipitor] 40 mg PO QHS 10/05/16 Cholecalciferol (Vitamin D3) [Vitamin D3] 5,000 unit PO DAILY 10/05/16 Furosemide [Lasix] 40 mg PO DAILY 10/05/16 Fluoxetine [Prozac] 60 mg PO DAILY 12/16/16 Lurasidone HCl [Latuda] 80 mg PO DAILY 12/16/16 Levothyroxine [Synthroid] 25 mcg PO DAILY 02/28/17 Albuterol Aerosols [Ventolin Aerosols] 2.5 mg INHALATION Q4H PRN PRN 12/07/19 Albuterol Sulfate [Albuterol Sulfate HFA] 2 puff IH TID PRN 12/07/19 Baclofen 10 mg PO BID PRN 12/07/19 Diclofenac [Voltaren] 75 mg PO BID 12/07/19 Fluticasone/Vilanterol [Breo Ellipta 200-25 Mcg INH] 1 ea IH DAILY 12/07/19 Melatonin 5 mg PO QHS PRN 12/07/19 Potassium Chloride 10 meq PO DAILY 12/07/19 Pregabalin 150 mg PO TID 12/07/19 Tiotropium [place] [Spiriva] 18 mcg IH DAILY 05/10/20 Oxycodone [Oxyir] 5 mg PO Q12H PRN PRN 5 Days #10 tab 05/12/20 The following prescriptions were given: Oxycodone [Oxyir] 5 mg PO Q12H PRN PRN 5 Days #10 tab PRN Reason: Pain Score 6-10 Transmission Status: Received by [facility] Primary Care Physician: Memo Chairez MD [Primary Care Provider] - Test Results: Test results from this visit will be discussed in further detail at your follow-up appointment, if applicable. Please Follow Up With: Gaye Gordon MD - When: to be seen on May 19 at 1:00 Proposed Discharge Date: 05/13/20
--- NOTE | 2020-05-13 12:23 | DS.PCM_ITS ---
Discharge Date and Diagnosis - Problem List Patient Problems: Active and Suspected Problems Elevated LFTs (Acute) Acute cholecystitis (Acute) Date of Admission: 05/10/20 Date of Discharge: 05/13/20 - Primary Discharge Diagnosis Acute Problems: Active Problems Elevated LFTs (Acute) Acute cholecystitis (Acute) - Secondary Discharge Diagnosis Chronic Problems: Chronic Problems Anxiety and depression (Chronic) HLD (hyperlipidemia) (Chronic) Tobacco use (Chronic) SANA (obstructive sleep apnea) (Chronic) Hypothyroidism (Chronic) Alcohol abuse (Chronic) Hypertension (Chronic) COPD (chronic obstructive pulmonary disease) with emphysema (Chronic) Back pain (Chronic) PTSD (post-traumatic stress disorder) (Chronic) Depression (Chronic) Anemia of unknown etiology (Chronic) Chronic GERD (Chronic) Pulmonary embolism (Chronic) Hospital Course and Treatment Imaging Results: Clinical Impression(s) from Imaging Studies Abdomen/Pelvis CT 05/10/20 18:07 IMPRESSION: Mild hepatomegaly with severe fatty change. Normal spleen and pancreas. Unremarkable gallbladder. No acute renal findings or changes. Negative for hydronephrosis or stones. Unremarkable nondistended urinary bladder. Stable exophytic 12 mm cyst in the lower pole of left kidney. Mild tortuosity and atherosclerotic changes of the aorta without aneurysm. Status post hysterectomy with no pelvic mass or free fluid of the pelvis. No acute bowel related findings. Negative for evidence of obstruction, perforation or inflammatory bowel changes. A normal appendix is identified. Electronically Signed: Belkis Tolbert MD at 19:11 EST , Service support , Chest X-Ray 05/10/20 18:35 IMPRESSION: Generalized hyperexpansion without new consolidation, other infiltrates or focal atelectasis. Normal cardiac size without pleural effusion. Minimal linear opacity stable from prior exam. Electronically Signed: Belkis Tolbert MD at 18:55 EST , Service support , Gallbladder Ultrasound 05/12/20 07:03 IMPRESSION: 1. Gallbladder wall thickening with pericholecystic fluid and positive sonographic KENNEDY sign suggesting acalculous cholecystitis. 2. Mild perihepatic ascites. 3. Hepatomegaly. Diffuse hepatic increased echogenicity most commonly associated with hepatic steatosis, although nonspecific. Electronically Signed: Ren Nicole MD ([place]) at 8:29 EST , Service support , Hepatobiliary Scan Nuclear Medicine 05/12/20 08:45 IMPRESSION: No scintigraphic evidence of cholecystitis or biliary obstruction. Electronically Signed: Ren Nicole MD ([place]) at 11:23 EST , Service support , Operations: cholecystecomy - Description of Surgical Findings:: thickened gallbladder wall with areas of gangrene, enlarged liver with fatty infiltration changes, ascites Procedures: None Summary of Care Provided: The patient is a 50 year old F presents with abdominal pain. Patient had a CAT scan that showed no acute process, showed gallbladder wall thickening with pericholestatic fluid and positive sonographic Kennedy sign suggesting a calculus cholecystitis, and an unremarkable HIDA scan. Patient underwent a laparoscopic cholecystectomy on the that showed a thickened gallbladder with areas of gangrene, enlarged liver with fatty infiltration changes and ascites. On the , the day after surgery, patient is feeling much better. Patient does have a YURIY drain. Patient was seen by general surgery who feels the patient can be discharged with follow-up with a surgery in the following week. [] Patient Problems: Active and Suspected Problems Elevated LFTs (Acute) Acute cholecystitis (Acute) - Physical Exam Vitals/I&O's: Vital Signs Temp Pulse Resp BP Pulse Ox 36.2 C L 81 18 128/89 H 92 05/13/20 07:53 05/13/20 07:53 05/13/20 07:53 05/13/20 07:53 05/13/20 07:53 Oxygen Flow Rate (L/min) 2 Oxygen Delivery Method Room Air Weight: 88.1 kg Body Mass Index (BMI) 29.5 Intake and Output for Last 24 Hours 05/11/20 05/12/20 05/13/20 23:59 23:59 23:59 Intake Total 3955.42 / 3955.42 5028.33 / 5028.33 2367.91 / 2367.91 Output Total 200 / 200 3310 / 3310 1365 / 1365 Balance 3755.42 / 3755.42 1718.33 / 1718.33 1002.91 / 1002.91 General: Alert, No apparent distress HEENT: Atraumatic, Normocephalic Oral: Moist Mucosa, No Gingival or Mucosal Lesions/ Ulcerations Neck: No Nodes, Thyroid Normal Size and Texture Lungs: Clear to auscultation, Normal air movement, No rhonchi, No wheeze Cardiovascular: Regular rate, Regular Rhythm, Normal S1, Normal S2, No murmurs Abdomen: Bowel Sounds Present, Soft, Non Tender, Non-Distended, No Hepato- splenomegaly Psych/Mental Status: Normal Affect, Appropriate Laboratory Results 05/10/20 18:15: Hepatitis A IgM Ab Pending, Hep Bs Antigen Pending, Hep B Core IgM Ab Pending, Hepatitis C Ab (EIA) Pending 05/13/20 05:25: WBC 8.9, RBC 3.49 L, Hgb 11.4 L, Hct 36.8 L, MCV 105.4 H, MCH 32.7 H, MCHC 31.0 L, RDW Std Deviation 51.0 H, RDW Coeff of Sandeep 13.2, Plt Count 171, MPV 10.9, Immature Gran % (Auto) 0.600, Neut % (Auto) 87.5 H, Lymph % (Auto) 5.5 L, [place] % (Auto) 6.4, Eos % (Auto) 0.0, Baso % (Auto) 0.0, Absolute Neuts (auto) 7.8 H, Absolute Lymphs (auto) 0.49 L, Nucleated RBC % 0, Differential Comment SCANNED 05/13/20 05:25: Sodium 136, Potassium 4.3, Chloride 107, Carbon Dioxide 27.0, Anion Gap 2 L, BUN 2 L, Creatinine 0.68, Estim Creat Clear Calc 97.62, Est GFR (MDRD) Af Amer 118, Est GFR (MDRD) Non-Af 97, BUN/Creatinine Ratio 3.0 L, Glucose 148 H, Calcium 8.2 L, Total Bilirubin 0.60, AST 162 H, ALT 139 H, Alkaline Phosphatase 81, Total Protein 6.3 L, Albumin 2.1 L, Globulin 4.2, Albumin/Globulin Ratio 0.5 L Current Medications Acetaminophen (Acetaminophen 325 Mg Tablet) 650 mg PO Q6H PRN PRN PRN Reason: Pain Score 1-10/Temp > 100.7 F Last Admin: 05/13/20 11:10 Dose: 650 mg Documented by: Al Hydroxide/Mg Hydroxide (Mag Hydrox/Al Hydrox/Simeth 30 Ml Udc) 30 ml PO Q6H PRN PRN PRN Reason: Gastric Burning Albuterol Sulfate (Albuterol 2.5 Mg/3 Ml Vial.Neb.) 2.5 mg INHALATION Q2H PRN PRN PRN Reason: Dyspnea, wheezing Baclofen (Baclofen 10 Mg Tablet) 10 mg PO BID PRN PRN PRN Reason: Pain Score 1-10 Last Admin: 05/11/20 01:02 Dose: 10 mg Documented by: Bupropion HCl (Bupropion (Xl) 150 Mg Tablet.Xl) 150 mg PO DAILY [facility] Last Admin: 05/13/20 07:58 Dose: 150 mg Documented by: Ferrous Sulfate (Ferrous Sulfate 325 Mg Tablet) 325 mg PO BIDCM [facility] Last Admin: 05/13/20 07:57 Dose: 325 mg Documented by: Fluoxetine HCl (Fluoxetine 20 Mg Capsule) 60 mg PO DAILY [facility] Last Admin: 05/13/20 07:56 Dose: 60 mg Documented by: Guaifenesin (Guaifenesin 10 Ml Udc (200mg/10ml)) 20 ml PO Q4H PRN PRN PRN Reason: COUGH Hydralazine HCl (Hydralazine 20 Mg/Ml Vial) 10 mg IV Q4H PRN PRN PRN Reason: SBP > 160 Hydromorphone HCl (Hydromorphone 0.5 Mg/0.5 Ml Syringe) 0.5 mg IV Q4H PRN PRN PRN Reason: Pain Score 6-10 Last Admin: 05/12/20 18:22 Dose: 0.5 mg Documented by: Sodium Chloride () 1,000 mls @ 125 mls/hr IV .Q8H [facility] Last Infusion: 05/13/20 11:17 Dose: Infused Documented by: Piperacillin Sod/Tazobactam (Sod 3.375 gm/ Sodium Chloride) 50 mls @ 12.5 mls/hr IV Q8 [facility] Last Infusion: 05/13/20 10:30 Dose: Infused Documented by: Pantoprazole Sodium 40 mg/ (Sodium Chloride) 110 mls @ 330 mls/hr IV Q12 [facility] Last Infusion: 05/13/20 08:22 Dose: Infused Documented by: Levothyroxine Sodium (Levothyroxine 25 Mcg Tablet) 25 mcg PO DAILY@0600 [facility] Last Admin: 05/13/20 06:24 Dose: 25 mcg Documented by: Lisinopril (Lisinopril 20 Mg Tablet) 20 mg PO DAILY [facility] Last Admin: 05/13/20 07:57 Dose: 20 mg Documented by: Lorazepam (Lorazepam 1 Mg Tablet) 2 mg PO Q2H PRN PRN; Protocol PRN Reason: CIWA score > 8 but <15 Lorazepam (Lorazepam 1 Mg Tablet) 2 mg PO UD PRN; Protocol PRN Reason: CIWA score >/=15. Lorazepam (Lorazepam 2 Mg/Ml Syringe) 2 mg IV Q2H PRN PRN; Protocol PRN Reason: CIWA score > 8 but <15 Lorazepam (Lorazepam 2 Mg/Ml Syringe) 2 mg IV UD PRN; Protocol PRN Reason: CIWA score >/=15. Melatonin (Melatonin 10 Mg Tablet) 5 mg PO QHS PRN PRN PRN Reason: SLEEP Last Admin: 05/12/20 22:32 Dose: 5 mg Documented by: Multivitamins/Minerals (Multivitamins,Ther W-Minerals Tablet) [facility] Last Admin: 05/13/20 07:57 Dose: 1 tablet Documented by: Nicotine (Nicotine 21 Mg Patch) 21 mg TRANSDERM. DAILY [facility] Last Admin: 05/13/20 07:56 Dose: 21 mg Documented by: Ondansetron HCl (Ondansetron 4 Mg/2 Ml Vial) 4 mg IV Q8H PRN PRN PRN Reason: NAUSEA/VOMITING Last Admin: 05/11/20 07:37 Dose: 4 mg Documented by: Oxycodone HCl (Oxycodone 5 Mg Tablet) 5 mg PO Q4H PRN PRN PRN Reason: Pain Score 4-5 Last Admin: 05/11/20 13:35 Dose: 5 mg Documented by: Oxycodone HCl (Oxycodone 5 Mg Tablet) 10 mg PO Q4H PRN PRN PRN Reason: Pain Score 6-10 Last Admin: 05/13/20 12:01 Dose: 10 mg Documented by: Potassium Chloride (Potassium Chloride 10 Meq Tablet) 10 meq PO DAILY [facility] Last Admin: 05/13/20 07:57 Dose: 10 meq Documented by: Pregabalin (Pregabalin 75 Mg Capsule) 150 mg PO TID [facility] Last Admin: 05/13/20 06:24 Dose: 150 mg Documented by: Prochlorperazine Edisylate (Prochlorperazine 10 Mg/2 Ml Vial) 5 mg IV Q4H PRN PRN PRN Reason: Breakthrough nausea/vomiting Last Admin: 05/11/20 13:24 Dose: 5 mg Documented by: Sodium Chloride (0.9% Saline Lock 10 Ml Syringe) 10 - 40 ml IV UD PRN PRN Reason: SALINE FLUSH Last Admin: 05/12/20 11:10 Dose: 20 ml Documented by: Temazepam (Temazepam 15 Mg Capsule) 15 mg PO QHS PRN PRN PRN Reason: INSOMNIA Thiamine HCl (Thiamine Hydrochloride 100 Mg Tablet) [facility] Stop: 05/13/20 17:01 Last Admin: 05/13/20 07:57 Dose: 100 mg Documented by: Throat Lozenges (Benzocaine/Menthol 1 Lozenge) 1 lozenge MUCOUS MEM Q2H PRN PRN PRN Reason: SORE THROAT Discharge Diet: No Restrictions - avoid carbonated beverages for 1-2 days, as bloating may occur and make you feel more uncomfortable Discharge Activity: Return to Normal Activity, May not drive while taking narcotic pain medications. Call your doctor if your incision/area has: Continuous Slow Oozing, Foul Smelling Discharge Drain: Suction Home Medications: Medications to take at Discharge Omeprazole [Prilosec] 40 mg PO DAILY 11/13/15 Famotidine [Pepcid] 20 mg PO QHS 12/18/15 Lisinopril [Zestril] 20 mg PO DAILY 12/18/15 buPROPion XL [Wellbutrin Xl] 150 mg PO DAILY 01/29/16 Ferrous Sulfate 325 mg PO BIDCM 03/04/16 Atorvastatin Calcium [Lipitor] 40 mg PO QHS 10/05/16 Cholecalciferol (Vitamin D3) [Vitamin D3] 5,000 unit PO DAILY 10/05/16 Furosemide [Lasix] 40 mg PO DAILY 10/05/16 Fluoxetine [Prozac] 60 mg PO DAILY 12/16/16 Lurasidone HCl [Latuda] 80 mg PO DAILY 12/16/16 Levothyroxine [Synthroid] 25 mcg PO DAILY 02/28/17 Albuterol Aerosols [Ventolin Aerosols] 2.5 mg INHALATION Q4H PRN PRN 12/07/19 Albuterol Sulfate [Albuterol Sulfate HFA] 2 puff IH TID PRN 12/07/19 Baclofen 10 mg PO BID PRN 12/07/19 Diclofenac [Voltaren] 75 mg PO BID 12/07/19 Fluticasone/Vilanterol [Breo Ellipta 200-25 Mcg INH] 1 ea IH DAILY 12/07/19 Melatonin 5 mg PO QHS PRN 12/07/19 Potassium Chloride 10 meq PO DAILY 12/07/19 Pregabalin 150 mg PO TID 12/07/19 Tiotropium [place] [Spiriva] 18 mcg IH DAILY 05/10/20 Oxycodone [Oxyir] 5 mg PO Q12H PRN PRN 5 Days #10 tab 05/12/20 Following Prescriptions Were Given to Patient: Oxycodone [Oxyir] 5 mg PO Q12H PRN PRN 5 Days #10 tab PRN Reason: Pain Score 6-10 Transmission Status: Received by [facility] Primary Care Physician: Memo Chairez MD [Primary Care Provider] - Please Follow Up With: Gaye Gordon MD - When: to be seen on May 19 at 1:00 Additional Instructions: Recommended pain control regimen - May take 600 mg ibuprofen (Motrin) and then in 3-4 hours, may take 650 mg acetaminophen (Tylenol), then in 3-4 hours may take 600 mg ibuprofen, then in 3- 4 hours may take 650 mg acetaminophen and so on for 2-3 days May take narcotic pain medication for pain that is not controlled by above and at night for comfort through the night Leave dressings in place - empty drain and reconstitute the bulb suction as shown by the nurse - may have leakage around the drain - this is normal - can apply additional dressings to the area to reinforce the dressings Sponge bathe only as long as the drain is in place Do not soak - no tub baths/swimming Follow up in my office on May 19, for consideration of drain removal Minutes spent on discharge:: 28 Patient Condition:: Good Medical Necessity - Tobacco Use Smoking Status: Current every day smoker Tobacco Use: Cigarettes Meaningful Use Info Meaningful Use Diagnoses (Choose all that apply): None applicable Inpatient E&M: 77461 Disch Hosp
[2020-05-13 15:31] VITALS: O2SAT 95
[2020-05-14 05:07] LABS: HEPATITIS B SURFACE AG Negative (Negative); Hepatitis A IgM Antibody Negative (Negative); Hepatitis B Core AB IgM Negative (Negative)
[2020-05-14 13:12] LABS: Hep C Antibodies >11.0 s/co ratio (0.0-0.9)
== END 2020-05-13 13:05 | disposition home or self-care (01) | DRG 263 ==
LOC: ED 18:38 → MS3 21:45
PROVIDERS: Anesthesiology; Family Medicine; Surgery; Admitting Provider Family Medicine; Emergency Provider Emergency Medicine; PCP Family Medicine; Referring Provider Family Medicine
PROC: 0FT44ZZ Resection of Gallbladder, Percutaneous Endoscopic Approach (ICD-10-PCS; CPT 47610; principal; 2020-05-12 13:10)
DX: K81.0 Acute cholecystitis (principal); F32.9 Major depressive disorder, single episode, unspecified; F41.9 Anxiety disorder, unspecified; E78.5 Hyperlipidemia, unspecified; G47.33 Obstructive sleep apnea (adult) (pediatric); D64.9 Anemia, unspecified; K21.9 Gastro-esophageal reflux disease without esophagitis; I10 Essential (primary) hypertension; J44.9 Chronic obstructive pulmonary disease, unspecified; E03.9 Hypothyroidism, unspecified; E66.9 Obesity, unspecified; F43.12 Post-traumatic stress disorder, chronic; I27.82 Chronic pulmonary embolism; M54.9 Dorsalgia, unspecified; R18.8 Other ascites; N28.1 Cyst of kidney, acquired; K76.0 Fatty (change of) liver, not elsewhere classified; I70.0 Atherosclerosis of aorta; Z91.19 Patient's noncompliance with other medical treatment and regimen; Z68.29 Body mass index [BMI] 29.0-29.9, adult; R09.02 Hypoxemia; D50.9 Iron deficiency anemia, unspecified; G89.4 Chronic pain syndrome; M54.10 Radiculopathy, site unspecified; Z79.890 Hormone replacement therapy; Z80.1 Family history of malignant neoplasm of trachea, bronchus and lung; Z82.3 Family history of stroke; Z87.01 Personal history of pneumonia (recurrent); Z90.710 Acquired absence of both cervix and uterus; F10.10 Alcohol abuse, uncomplicated; F17.210 Nicotine dependence, cigarettes, uncomplicated; F12.90 Cannabis use, unspecified, uncomplicated
CPT/HCPCS: 36415; 71045; 74176; 76705; 78226; 80048; 80053; 80074; 80307; 80320; 81001; 83690; 83735; 84100; 84443; 84484; 85025; 85610; 85730; 87635; 88304; 93005; 94640; 97802; 99285; 99406; A9537; J7030; J7050; A4216; G0480; J2405; U0002

== ENCOUNTER 2020-08-13 19:42 | Inpatient (IN) | payer MEDICAID, SELFPAY ==
[2020-05-12 11:30] VITALS: BMI 29.5
[2020-08-13 19:43] VITALS: BP 200/140; PULSE 114; RESP 16; TEMP 36.2; O2SAT 98; BMI 30.4
--- NOTE | 2020-08-13 20:59 | ED.VIS.GEN ---
History of Present Illness Chief Complaint: Abd Pain Informant: Patient Narrative: 50-year-old female presenting with abdominal pain for the last 2 days. She states it is getting worse. She describes it as diffuse and sharp. Patient has not had a bowel movement since yesterday. She denies black or bloody stools. Patient has had history of cholecystectomy and complete hysterectomy. She denies any history of bowel obstruction. She is not had a fever, nausea, vomiting. She denies urinary complaints. Past Medical History - Allergies and Home Meds Allergies/Adverse Reactions: Allergies fentanyl Adverse Reaction (Verified 08/13/20 19:45) Anaphylaxis varenicline [From Chantix] Adverse Reaction (Verified 08/13/20 19:45) hallucinations Primary Care Physician: Memo Chairez MD [Primary Care Provider] - Surgical History: hysterectomy, tonsillectomy, - - Back surgery, hysterectomy Smoking Status: Current every day smoker - Family History Paternal Family History: Reports: Cancer - Father with a history of lung cancer, tobacco use concurrently., High Cholesterol, Heart Disease, Stroke Maternal Family History: Reports: Cancer - Mother with a history of lung cancer, tobacco use concurrently. Review of Systems General: Denies: Chills, Fever, Sweats Eyes: Denies: Visual changes - bilaterally, Diplopia ENT: Denies: Rhinorrhea, Sore throat Cardiovascular: Denies: Chest pain, Palpitations Respiratory: Denies: Dyspnea, Cough, Dyspnea on exertion Gastrointestinal: Reports: Abdominal pain, Constipation. Denies: Nausea, Vomiting, Diarrhea, Melena, Hematochezia Genitourinary: Reports: Dysuria, Hematuria Musculoskeletal: Reports: Myalgias, Arthralgias Skin: Denies: Rash, Abscess Neurological: Reports: Headache, Weakness, Parasthesia, Numbness Psych: Denies: Depression, Anxiety Physical Exam Vital Signs/Narrative: Vital Signs Temp Pulse Resp BP Pulse Ox 08/13/20 19:43 97.2 F L 114 H 16 200/140 H 98 Inital Vital Signs reviewed: Yes General: Well nourished, No Acute Distress Head: Normocephalic, Atraumatic Eyes: Perrl, EOMI. Negative for: Pale conjunctiva, Scleral icterus ENT: Moist mucous membranes, No rhinorrhea Neck: Supple, Nontender Cardiovascular: Regular rate, Regular rhythm Abdomen: Soft, Nondistended, Tender - Generalized diffuse tenderness without rebound or guarding. Extremities: Nontender, No edema Skin: Normal color, No rash. Negative for: Cyanosis, Diaphoresis Neurological: Alert, Oriented x3, Cranial nerves II-XII grossly intact Psychological: Normal affect, Normal Mood Diagnostic/Tx/Re-eval Clinical Impression(s) from Imaging Studies Abdomen/Pelvis CT 08/13/20 21:00 IMPRESSION: Acute pancreatitis Electronically Signed: Spencer Miguel MD at 23:05 EST , Service support , Laboratory Data 08/13/20 08/13/20 20:23 21:55 WBC 18.5 H RBC 5.38 Hgb 17.6 H Hct 51.2 H MCV 95.2 MCH 32.7 H MCHC 34.4 RDW Std Deviation 41.1 RDW Coeff of Sandeep 11.8 Plt Count 242 MPV 10.4 Immature Gran % (Auto) 0.400 Neut % (Auto) 90.5 H Lymph % (Auto) 1.8 L [place] % (Auto) 7.0 Eos % (Auto) 0.1 Baso % (Auto) 0.2 Absolute Neuts (auto) 16.7 H Absolute Lymphs (auto) 0.33 L Nucleated RBC % 0 Differential Comment Sodium 127 L Potassium 3.5 Chloride 89 L Carbon Dioxide 25.0 Anion Gap 13 BUN 22 H Creatinine 1.12 H Estim Creat Clear Calc 59.27 Est GFR (MDRD) Af Amer 66 Est GFR (MDRD) Non-Af 54 L BUN/Creatinine Ratio 19.6 Glucose 144 H Calcium 9.7 Total Bilirubin 1.70 H AST 269 H ALT 154 H Alkaline Phosphatase 129 H Total Protein 9.0 H Albumin 4.1 Globulin 4.9 H Albumin/Globulin Ratio 0.8 L Lipase 9034 H - Medical Decision Making 6-year-old female presenting with abdominal pain. She describes it as diffuse and sharp. She is had this for a couple of days. Its been worsening. She has nausea without vomiting. After further discussion the patient states that she is an everyday drinker and drinks about 6-7 beers a day. She just returned from [place] where she had been for 2 weeks and states she had been drinking in excess of this and also doing shots. She also states that she has a history of alcohol withdrawal but states she does not go into withdrawal very fast. She does not feel shaky or crampy. It is noted that her blood pressure is elevated and her heart rate is fast. Last drink was yesterday. Patient CBC shows a white blood cell count of 18.5, hemoglobin 17.6, hematocrit 51.2, platelets 242. CMP shows sodium at 127, potassium 3.5, GFR decreased from 97-54 from 05/13/2020. Bilirubin 1.7, AST 269, ALT 154, alk phos 129, lipase 9034. Patient had CT of the abdomen pelvis with IV contrast which shows acute pancreatitis. Patient was given 2 doses of morphine and continues to have elevated blood pressure and tachycardia. At this point she was given Ativan and 20 mg of labetalol. Pressure and heart rate did respond. Patient discussed with hospitalist and patient will be treated as EtOH withdrawal as well as acute pancreatitis. Impression: 1. Acute pancreatitis 2. EtOH withdrawal ED Disposition - Plan for ED Patient: Referrals: Memo Chairez MD [Primary Care Provider] -
--- NOTE | 2020-08-13 21:00 | CT_ITS ---
STUDY: CT ABDOMEN AND PELVIS WITH CONTRAST REASON FOR EXAM: Female, 50 years old. Abdominal pain RADIATION DOSAGE (If Supplied By Facility): CTDIvol = ( 18.40 ) mGy, DLP = ( 1033.90 ) mGycm TECHNIQUE: Transaxial images were obtained from the dome of the diaphragm to the symphysis pubis without oral contrast. IV 100mL Isovue-370 was administered. Sagittal and coronal images were reconstructed. Individualized dose optimization techniques were used for this CT. COMPARISON: 05/10/2020 CT abdomen and pelvis FINDINGS: The visualized lung bases are unremarkable. The visualized portions of the heart are within normal limits. There is decreased attenuation of the liver consistent with steatosis. Gallbladder not identified. Normal spleen. Peripancreatic fluid extending in the bilateral colonic gutters. Normal bilateral adrenal glands. Normal right kidney. 2 simple left renal cortical cyst measuring up to 14 mm. Normal visualized stomach. Normal small intestine. Normal colon. Appendix not identified. Normal abdominal aorta. Normal inferior vena cava. Normal retroperitoneum. Normal urinary bladder. Normal abdominal wall. Normal osseous structures. CT/Abdomen/Pelvis W IV Cont ONLY IMPRESSION: Acute pancreatitis Electronically Signed: Spencer Miguel MD at 23:05 EST , Service support ,
[2020-08-13] MEDS: Ondansetron 4 MG/2 ML Vial IV (22:01)
[2020-08-13] MEDS: Morphine 4 MG/ML Syringe IV ×2 (22:01→22:59)
[2020-08-13] MEDS: 0.9% Normal Saline 1,000 ML 1000 ML IV (22:04)
[2020-08-13 22:29] LABS: ALB/GLOB Ratio 0.8 RATIO (0.9-2.4); AST(SGOT) 269 U/L (15-37); Alanine Aminotransfer ALT/SGPT 154 U/L (13-56); Albumin, Serum 4.1 g/dL (3.2-5.0); Alkaline Phosphatase 129 U/L (45-117); Anion Gap 13 (5-15); BUN 22 mg/dL (7-18); BUN/Creat Ratio 19.6 RATIO (10-20); Calcium,Total 9.7 mg/dL (8.5-10.1); Chloride 89 mmol/L (98-107); Creatinine, Serum 1.12 mg/dL (0.55-1.02); EST Glomerular Filtration Rate 54 mL/min (>60); Est Glom Filt Rate - Afr Amer 66 mL/min (>60); Estimated Creatinine Clearance 59.27 ml/min; Globulin 4.9 g/dL (2.2-4.2); Glucose 144 mg/dL (74-106); Lipase 9034 U/L (73-393); Potassium 3.5 mmol/L (3.5-5.1); Sodium Level 127 mmol/L (136-145)
[2020-08-13 22:44] LABS: Absolute Lymphocyte Count 0.33 X10^3/uL (0.83-4.51); Absolute Neutrophil Count 16.7 X10^3/uL (2.0-7.7); Basophil# 0.03 X10^3/uL; Basophil% 0.2 % (0-1); Eosinophil# 0.01 X10^3/uL; Eosinophils% 0.1 % (0-5); Hematocrit 51.2 % (37-47); Hemoglobin 17.6 g/dL (12.0-15.0); Lymphocyte # 0.33 X10^3/ul (4.0); Lymphocyte % 1.8 % (19-41); Mean Corp Hgb Conc 34.4 g/dL (32-36); Mean Corpuscular Hgb 32.7 pg (27.0-32.0); Mean Corpuscular Volume 95.2 fL (81-99); Mean Platelet Vol. 10.4 fl (6.2-12.0); Monocyte# 1.29 X10^3/uL; NRBC Flagged by Analyzer 0 % (0-5); Neutrophil # 16.71 X10^3/uL (2.7-7.7); Neutrophil % 90.5 % (47-70); POSITIVE DIFFERENTIAL YES; Platelet Count 242 K/mm3 (150-450); RBC Distribution Width CV 11.8 % (11.6-14.6); RBC Distribution Width SD 41.1 fl (35.1-43.9); Red Blood Count 5.38 M/mm3 (4.2-5.4); White Blood Count 18.5 K/mm3 (4.4-11.0)
[2020-08-13 22:49] LABS: Differential Indicated SCAN CRITERIA MET
[2020-08-13 23:16] VITALS: BP 192/125; PULSE 104
[2020-08-13] MEDS: Labetalol (Prefilled) 20 MG/4 ML IV (23:27)
--- NOTE | 2020-08-13 23:28 | PCM.HP.STD ---
Problem List (1) Acute pancreatitis Status: Acute Qualifiers: Pancreatitis type: alcohol induced Acute pancreatitis complication: unspecified Qualified Code(s): K85.20 - Alcohol induced acute pancreatitis without necrosis or infection (2) Acute hyponatremia Status: Acute (3) Alcohol withdrawal Status: Acute Qualifiers: Complication of substance-induced condition: with unspecified complication Qualified Code(s): F10.239 - Alcohol dependence with withdrawal, unspecified (4) Hyperglycemia Status: Acute (5) Elevated LFTs Status: Acute (6) Alcohol abuse Status: Chronic (7) Anemia of unknown etiology Status: Chronic (8) Anxiety and depression Status: Chronic (9) Back pain Status: Chronic Qualifiers: Back pain location: back pain in unspecified location Chronicity: unspecified Back pain laterality: unspecified Qualified Code(s): M54.9 - Dorsalgia, unspecified (10) COPD (chronic obstructive pulmonary disease) with emphysema Status: Chronic Qualifiers: Emphysema type: unspecified Qualified Code(s): J43.9 - Emphysema, unspecified (11) Chronic GERD Status: Chronic (12) HLD (hyperlipidemia) Status: Chronic Qualifiers: Hyperlipidemia type: unspecified Qualified Code(s): E78.5 - Hyperlipidemia, unspecified (13) Hypertension Status: Chronic Qualifiers: Hypertension type: essential hypertension Qualified Code(s): I10 - Essential (primary) hypertension (14) Hypothyroidism Status: Chronic Qualifiers: Hypothyroidism type: unspecified Qualified Code(s): E03.9 - Hypothyroidism, unspecified (15) SANA (obstructive sleep apnea) Status: Chronic (16) PTSD (post-traumatic stress disorder) Status: Chronic (17) Tobacco use Status: Chronic History of Present Illness Date of Admission: 08/13/20 Chief Complaint: Abdominal pain The patient is a 50 y/o F w/ PMHx: Obesity, Anxiety and Depression, Chronic COPD, GERD, Hypothyroidism, Chronic Fe Deficiency anemia, Tobacco use, EtOH Abuse (6-10 beers daily plus vodka) who presents to the [facility] ED on 08/13/20 with history of onset significant epigastric pain, worsening over the last 24 hours, worsening with recent drive from [place] where she did note significant EtOH consumption but avoidance over the last 24 hours secondary to abdominal discomfort with concurrent nausea and tactile disturbances in addition to tremors prompting eventual ED presentation. Patient describes her epigastric pain as constant, sharp, 10 out of 10 in severity. Following ED interventions including morphine 4 mg IV x2 she notes pain currently 8 of 10 in severity. She denies any recent diarrhea associated. Work-up in the ED included T 97.2 temporally, heart rate 114, BP 200/140, respiratory rate 16, 98% on room air, CBC with WC 18.5, hemoglobin 17.6, platelet 242 with left shift and lymphopenia, CMP with sodium 127, chloride 89, BUN/creatinine 22/1.12, glucose 144, total bilirubin 1.70, AST/ALT 269/154, alk phos 129, lipase 9034, CT abdomen and pelvis with contrast with absence of the gallbladder with. Pancreatic fluid extending in the bilateral colonic gutters. In the ED patient administered normal saline, Zofran, morphine 4 mg IV x2 as well as labetalol 20 mg IV x1. Past Medical History Past Medical History (Chronic Problems): Chronic Problems Anxiety and depression (Chronic) HLD (hyperlipidemia) (Chronic) Tobacco use (Chronic) SANA (obstructive sleep apnea) (Chronic) Hypothyroidism (Chronic) Alcohol abuse (Chronic) Hypertension (Chronic) COPD (chronic obstructive pulmonary disease) with emphysema (Chronic) Back pain (Chronic) PTSD (post-traumatic stress disorder) (Chronic) Depression (Chronic) Anemia of unknown etiology (Chronic) Chronic GERD (Chronic) Pulmonary embolism (Chronic) Allergies fentanyl Adverse Reaction (Verified 08/13/20 19:45) Anaphylaxis varenicline [From Chantix] Adverse Reaction (Verified 08/13/20 19:45) hallucinations Home Medications: Ambulatory Orders Medication Instructions Recorded Omeprazole [Prilosec] 40 mg PO DAILY 11/13/15 Famotidine [Pepcid] 20 mg PO QHS 12/18/15 Lisinopril [Zestril] 20 mg PO DAILY 12/18/15 buPROPion XL [Wellbutrin Xl] 150 mg PO DAILY 01/29/16 Ferrous Sulfate 325 mg PO BIDCM 03/04/16 Atorvastatin Calcium [Lipitor] 40 mg PO QHS 10/05/16 Cholecalciferol (Vitamin D3) 5,000 unit PO DAILY 10/05/16 [Vitamin D3] Furosemide [Lasix] 40 mg PO DAILY 10/05/16 Fluoxetine [Prozac] 60 mg PO DAILY 12/16/16 Lurasidone HCl [Latuda] 80 mg PO DAILY 12/16/16 Levothyroxine [Synthroid] 25 mcg PO DAILY 02/28/17 Albuterol Aerosols [Ventolin 2.5 mg INHALATION Q4H PRN PRN 12/07/19 Aerosols] Albuterol Sulfate [Albuterol 2 puff IH TID PRN 12/07/19 Sulfate HFA] Baclofen 10 mg PO BID PRN 12/07/19 Diclofenac [Voltaren] 75 mg PO BID 12/07/19 Fluticasone/Vilanterol [Breo 1 ea IH DAILY 12/07/19 Ellipta 200-25 Mcg INH] Melatonin 5 mg PO QHS PRN 12/07/19 Potassium Chloride 10 meq PO DAILY 12/07/19 Pregabalin 150 mg PO TID 12/07/19 Tiotropium [place] [Spiriva] 18 mcg IH DAILY 05/10/20 Surgical History: cholecystectomy, hysterectomy, tonsillectomy, - - Back surgery, hysterectomy Psychiatric History: Anxiety, Depression, Post 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 Tobacco Use: Cigarettes Alcohol: Heavy - Patient reports drinking at least 6-8 beers daily in addition of vodka. Drugs: None - *Family History Paternal History Items: Cancer - Father with a history of lung cancer, tobacco use concurrently., High Cholesterol, Heart Disease, Stroke Maternal History Items: Cancer - Mother with a history of lung cancer, tobacco use concurrently. Review of Systems Constitutional: Reports: Anorexia, Malaise, Weakness, Fatigue. Denies: Chills, Fever, Weight Change HEENT: Denies: Head Aches, Sinus Congestion, Sinus Drainage Cardiovascular: Denies: Chest Pain, Palpitations Respiratory: Denies: Cough, Shortness of breath at rest, Sputum production Gastrointestinal: Reports: Abdominal Pain, Nausea. Denies: Vomiting Genitourinary: Denies: Dysuria Musculoskeletal: Reports: Back Pain, Joint Pain. Denies: Joint Tenderness Skin: Denies: Rash, Wounds Neurological: Reports: Tremor. Denies: Focal weakness, Numbness, Tingling Psychiatric: Reports: Anxiety, Depression. Denies: Homicidal Ideations, Suicidal Ideations Hematologic/ Lymphatic: Reports: Anemia. Denies: Easy Bruising, Easy Bleeding VTE Information - Inpt Only VTE Present on Admission: No VTE Mechan Device Prophylaxis: SCD's VTE Pharm Prophylaxis ordered?: Yes Patient Problems: Active and Suspected Problems Acute pancreatitis (Acute) Subjective: Patient seated upright in the ED bed, uncomfortable appearing, notes pain currently 8 out of 10, decreased from 10 out of 10. Objective: Physical Examination: General: awake, alert, oriented x 3 and cooperative, seated upright in the ED bed, fatigued, uncomfortable appearing, evident tremors. Skin: normal color, turgor, no icterus, cyanosis. HEENT: AT/NC, EOMI, PERRLA, dry MM, no carotid bruits or JVD noted, missing upper front teeth. Lungs: Diminished breath sounds, greater bases, moderate effort, no rales, ronchi or wheezing. Heart: Tachycardic with regular rhythm; no gallop, rub audible. Abdomen: soft, obese, significant epigastric tenderness to palpation, no obvious distention, distant hyperactive bowel sounds, difficult to discern HSM secondary to habitus and pain. Extremities: no cyanosis, clubbing, or edema. Neurological: patient awake, alert, oriented as noted; cognitive function intact; pupils equally reactive to light and accomodation; cranial nerves II-XII grossly normal, moving all 4 extremities, no focal deficits, strength moderately global decrease secondary to acute presentation and pain. Psychiatric: affect appears fatigued, uncomfortable appearing, no acute evidence of depressive or anxiety feelings. - Physical Exam Vitals/I&O's: Vital Signs Temp Pulse Resp BP Pulse Ox 97.2 F L 104 H 16 192/125 H 98 08/13/20 19:43 08/13/20 23:16 08/13/20 19:43 08/13/20 23:16 08/13/20 19:43 Oxygen Delivery Method Room Air Weight: 200 lb Body Mass Index (BMI) 30.4 Laboratory Results 08/13/20 20:23: WBC 18.5 H, RBC 5.38, Hgb 17.6 H, Hct 51.2 H, MCV 95.2, MCH 32.7 H, MCHC 34.4, RDW Std Deviation 41.1, RDW Coeff of Sandeep 11.8, Plt Count 242, MPV 10.4, Immature Gran % (Auto) 0.400, Neut % (Auto) 90.5 H, Lymph % (Auto) 1.8 L, [place] % (Auto) 7.0, Eos % (Auto) 0.1, Baso % (Auto) 0.2, Absolute Neuts (auto) 16.7 H, Absolute Lymphs (auto) 0.33 L, Nucleated RBC % 0, Differential Comment 08/13/20 21:55: Sodium 127 L, Potassium 3.5, Chloride 89 L, Carbon Dioxide 25.0, Anion Gap 13, BUN 22 H, Creatinine 1.12 H, Estim Creat Clear Calc 59.27, Est GFR (MDRD) Af Amer 66, Est GFR (MDRD) Non-Af 54 L, BUN/Creatinine Ratio 19.6, Glucose 144 H, Calcium 9.7, Total Bilirubin 1.70 H, AST 269 H, ALT 154 H, Alkaline Phosphatase 129 H, Total Protein 9.0 H, Albumin 4.1, Globulin 4.9 H, Albumin/Globulin Ratio 0.8 L, Lipase 9034 H Current Medications Labetalol HCl (Labetalol (Prefilled) 20 Mg/4 Ml) 20 mg IV X1 ONE Stop: 08/13/20 23:31 Assessment/Plan All Active Problems Elevated LFTs (Acute) Acute cholecystitis (Acute) Acute pancreatitis (Acute) Acute hyponatremia (Acute) Alcohol withdrawal (Acute) Hyperglycemia (Acute) The patient is a 50 y/o F w/ PMHx: Obesity, Anxiety and Depression, Chronic COPD, GERD, Hypothyroidism, Chronic Fe Deficiency anemia, Tobacco use, EtOH Abuse (6-12 beers daily) who presents to the [facility] ED on 08/13/20 with history of onset significant epigastric pain, worsening over the last 24 hours, worsening with recent drive from [place] where she did note significant EtOH recent consumption but not since the day prior with concurrent nausea and tactile disturbances in addition to tremors prompting eventual ED presentation. 1. Acute pancreatitis w/ abdominal pain, N/V: Will admit to the medical surgical floor, maintain on IVFs, NPO, maintain on IV PPI, IV/po pain control, trend lipase, CMP. Patient already status post cholecystectomy approximate 2 months prior to current presentation, likely etiology is alcohol intake, to be thorough we will obtain FLP concurrently. If worsened appearance may need to consider surgery involvement. 2. Acute on chronic LFT elevations: Patient with total bilirubin 1.70, AST/ALT 269/154, alk phos 129, likely secondary to acute presentation, will continue treatment as noted and trend CMP, CT abdomen and pelvis with hepatic steatosis is noted. 3. Acute hyponatremia on chronic: Secondary to alcohol abuse as noted as well as acute presentation with hypokalemia given #1, will continue aggressive treatment with hydration as noted #1 and trend CMP. 4. Acute renal insufficiency: Secondary to #1: Admission BUN/creatinine 22/1.12, Baseline creatinine 0.6-0.8, will continue aggressive hydration repeat CMP in a.m. as noted. 5. Leukocytosis: Likely reactive, secondary to acute presentation as noted #1 as well as associated with #2, #3, #4, will continue to aggressively treat as noted above and repeat CBC in AM. 6. Acute EtOH Withdrawal: Will initiate and continue on protocol with taper course of Phenobarbital, scheduled gabapentin for seizure prophylaxis, as needed Catapres, Bentyl, Vistaril, IV fluids, IV antiemetics, Tylenol as needed for pain. Will consult Case management for assistance for transition to next level of rehabilitation care. Mag, phos pending. 7. Hyperglycemia: Admission glucose 144, will obtain HgbA1c. 8. Chronic COPD: We will maintain on ATC duonebs, PRN albuterol, HOB, IS parameters. 9. Tobacco Abuse: Encouraged cessation, inpatient consultation per RT, NR if desired. 10. Obesity: Weight loss and lifestyle changes encouraged. 11. Anxiety and depression/? Bipolar disorder: We will continue patient home bupropion and Prozac regimen as well as Latuda. 12. Tobacco Abuse: Encouraged cessation, inpatient consultation per RT, NR if desired. 13. Hyperlipidemia: We will temporarily hold statin therapy given elevated LFTs although patient has had previous LFT elevations with similar presentation, restart once appropriate. 14. Chronic iron deficiency anemia: Admission hemoglobin 17.6 with tobacco use history, will continue iron supplementation. 15. Hypothyroidism: Continue home synthroid regimen. 16. GERD: We will maintain on IV PPI. 17. Questionable SANA: Given history will offer BiPAP nightly. 18. DVT prophylaxis: SCDs, Lovenox. Inpatient E&M: 10944 Init Hosp L3
[2020-08-13 23:52] VITALS: BP 165/105; PULSE 86; RESP 18; TEMP 37; O2SAT 93
[2020-08-13] MEDS: LORazepam 2 MG/ML Syringe 1 MG IV (23:53)
[2020-08-14] VITALS (13 sets, daily range): BP systolic 124–153; BP diastolic 87–103; PULSE 88–108; RESP 17–22; TEMP 36.4–37.2; O2SAT 94–100; BMI 26.7
[2020-08-14] MEDS: 0.9% Normal Saline 1,000 ML 999 ML IV (00:35)
[2020-08-14] MEDS: 0.9% Saline Lock 10 ML Syringe IV (00:35)
[2020-08-14 00:41] LABS: Magnesium 1.8 mg/dL (1.6-2.6); Phosphorus 5.8 mg/dL (2.5-4.9)
--- NOTE | 2020-08-14 00:45 | EKG12_ITS ---
Test Reason : ADMIT EKG Blood Pressure : / mmHG Vent. Rate : 088 BPM Atrial Rate : 088 BPM P-R Int : 184 ms QRS Dur : 098 ms QT Int : 410 ms P-R-T Axes : 052 041 060 degrees QTc Int : 496 ms Normal sinus rhythm Nonspecific ST abnormality Prolonged QT Abnormal ECG Confirmed by CAIT BLACKWELL, MATTHEW ([id number]), brands editor ERIKA SIMMONS ([id number]) on 08/21/2020 1:19:13 PM Referred By: DR COSME Confirmed By:MATTHEW CHAVIRA MD
[2020-08-14 00:49] LABS: Hemoglobin A1c 5.3 % (3.8-5.6)
[2020-08-14] MEDS: Phenobarbital 32.4 MG Tablet PO ×6 (01:32→20:13)
[2020-08-14] MEDS: Ketorolac 15 MG/ML Vial IV ×3 (01:33→17:33)
[2020-08-14] MEDS: 0.9% Normal Saline 1,000 ML 150 ML IV ×4 (01:37→23:07)
[2020-08-14] MEDS: HYDROmorphone 0.5 MG/0.5 ML SYRINGE IV ×5 (04:21→21:57)
[2020-08-14 05:49] LABS: Absolute Lymphocyte Count 0.51 X10^3/uL (0.83-4.51); Absolute Neutrophil Count 12.9 X10^3/uL (2.0-7.7); Basophil# 0.02 X10^3/uL; Basophil% 0.1 % (0-1); Hematocrit 44.1 % (37-47); Hemoglobin 15.1 g/dL (12.0-15.0); Lymphocyte # 0.51 X10^3/ul (4.0); Lymphocyte % 3.5 % (19-41); Mean Corp Hgb Conc 34.2 g/dL (32-36); Mean Corpuscular Hgb 33.2 pg (27.0-32.0); Mean Corpuscular Volume 96.9 fL (81-99); Mean Platelet Vol. 10.3 fl (6.2-12.0); Monocyte# 1.08 X10^3/uL; Monocyte% 7.4 % (0-10); NRBC Flagged by Analyzer 0 % (0-5); Neutrophil # 12.88 X10^3/uL (2.7-7.7); Neutrophil % 88.7 % (47-70); POSITIVE DIFFERENTIAL YES; Platelet Count 153 K/mm3 (150-450); RBC Distribution Width CV 11.5 % (11.6-14.6); Red Blood Count 4.55 M/mm3 (4.2-5.4); White Blood Count 14.5 K/mm3 (4.4-11.0)
[2020-08-14 05:50] LABS: Differential Indicated SCAN CRITERIA MET
[2020-08-14 06:12] LABS: Differential Comment SCANNED
[2020-08-14 06:47] LABS: ALB/GLOB Ratio 0.6 RATIO (0.9-2.4); AST(SGOT) 192 U/L (15-37); Alanine Aminotransfer ALT/SGPT 102 U/L (13-56); Albumin, Serum 2.6 g/dL (3.2-5.0); Alkaline Phosphatase 88 U/L (45-117); Anion Gap 9 (5-15); BUN 22 mg/dL (7-18); BUN/Creat Ratio 25.4 RATIO (10-20); Calcium,Total 7.8 mg/dL (8.5-10.1); Chloride 100 mmol/L (98-107); Cholesterol 116 mg/dL (200); Creatinine, Serum 0.86 mg/dL (0.55-1.02); EST Glomerular Filtration Rate 73 mL/min (>60); Est Glom Filt Rate - Afr Amer 88 mL/min (>60); Estimated Creatinine Clearance 77.19 ml/min; Glucose 121 mg/dL (74-106); High Density Lipoprotein 90 mg/dL; Lipase 5628 U/L (73-393); Potassium 3.8 mmol/L (3.5-5.1); Protein, Total 6.6 g/dL (6.4-8.2); Sodium Level 131 mmol/L (136-145); Triglycerides 58 mg/dL; Very Low Density Lipoprotein 12 mg/dL (5-40)
[2020-08-14] MEDS: Ipratropium/Albuterol Sulfate 3 ML AMPUL.NEB INHALATION ×2 (07:14→13:23)
[2020-08-14 08:35] LABS: Color, Urine Yellow (Yellow); Glucose, Dipstick Normal (Normal); Ketone-Dipstick 5 mg/dl (Negative); Leukocyte Esterase-Dipstick 25 /ul (Negative); Nitrite-Dipstick Positive (Negative); Occult Blood-Urine 25 /ul (Negative); Protein-Dipstick 30 mg/dl (Negative); Specific Gravity, Urine 1.015 (1.002-1.030); Urine Clarity Clear (Clear); Urine Urobilinogen 1 mg/dl (Normal)
[2020-08-14 08:43] LABS: Urine Bilirubin Dipstick 1 mg/dL (Negative)
[2020-08-14] MEDS: Thiamine Hydrochloride 100 MG Tablet PO (09:45)
[2020-08-14] MEDS: Multivitamins,Therapeutic Tablet 1 TABLET PO (09:46)
[2020-08-14] MEDS: Folic Acid 1 MG Tablet PO (09:46)
[2020-08-14] MEDS: Enoxaparin 40 MG/0.4 ML Syringe SC (09:47)
--- NOTE | 2020-08-14 09:53 | CASEMGMT ---
YAYA HUGHES Face to Face with patient for initial transition planning/care coordination assessment. RN CM introduced self and role at [facility]. Patient lying in bed, alert and oriented. Patient willing to participate in assessment and is able to answer all questions appropriately. Care providers, pharmacy, and demographics verified. Patient wishes to discharge home, denies need for home health at this time. Patient states she has no further needs or concerns at this time. CM to follow for discharge planning needs that may arise. PCP: Mihaela Specialists: Clarence, psychiatrist; Renata Turner, therapist; ramírez Bermeo mgmt Preferred Pharmacy: [facility] Insurance: [employer] Prescription Benefit: yes Living Will/HPOA: no, no LNOK: Sister Living Arrangements: Pt lives in apt complex alone and uses elevator to get to her apt. She reports she was indep prior to hospitalization. Transportation: Provide A Ride DME/HHC: Pt reports she has a cane, walker, rollator, grab bars in the bathroom, shower chair and emergency pull cords in the bedroom and bathroom. She has O2 that she uses at night from [facility]. Denies further DME needs. Pt has previously had [facility] for HHC. Pt reports she drinks 6-8 beers/day and spokes 1 pack of cigarettes per day. She was agreeable for resources for addiction. Notified Leonard Hawkins. Disposition Plan: Pt wishes to dc home with family support, follow up plans in place.
--- NOTE | 2020-08-14 13:37 | CASEMGMT ---
Social Work Note SW received referral that pt would like ETOH resources. SW in to speak with pt. SW introduced self and role at [facility]. Pt confirms she would like ETOH resources. SW provided pt with ETOH/Substance Abuse resources. Francisca Hawkins FULFILLMENT COORDINATOR, LABOR OPERATOR
--- NOTE | 2020-08-14 13:45 | PN_ITS ---
Patient Problems: Active and Suspected Problems Elevated LFTs (Acute) Acute pancreatitis (Acute) Acute hyponatremia (Acute) Alcohol withdrawal (Acute) Hyperglycemia (Acute) Subjective: Patient seen and examined. She was admitted with a complaint of abdominal pain and has been managed for alcohol induced pancreatitis. She still complains of abdominal pain this morning. She denies any nausea or vomiting. Review of systems otherwise negative. Lipase was 9000 on admission and is now down to 5628. WBC is also down to 14.5 from 18.5 on admission. Vitals/I&O's: Vital Signs Temp Pulse Resp BP Pulse Ox 98.4 F 98 17 131/101 H 99 08/14/20 10:42 08/14/20 13:23 08/14/20 13:23 08/14/20 12:27 08/14/20 13:23 Oxygen Flow Rate (L/min) 2 Oxygen Delivery Method Nasal Cannula Weight: 175 lb 3.2 oz Body Mass Index (BMI) 26.7 Intake and Output for Last 24 Hours 08/12/20 08/13/20 08/14/20 23:59 23:59 23:59 Intake Total 1000 / 1000 2320.0 / 2320.0 Output Total 500 / 500 Balance 1000 / 1000 1820.0 / 1820.0 General: Alert, Oriented x3, Cooperative, No apparent distress HEENT: Atraumatic, PERRLA, EOMI, Normocephalic Oral: Dry Mucosa Neck: Supple, No JVD, Negative Carotid Bruits Lungs: Clear to auscultation, Normal air movement Cardiovascular: Regular rate, Regular Rhythm, Normal S1, Normal S2, No murmurs Abdomen: Bowel Sounds Present, Soft, - - moderate epigastric tenderness Extremities: No clubbing, No cyanosis, No edema, Capillary Refill Less than 3 Seconds Skin: No rashes, No breakdown Musculoskeletal: No Tenderness to Palpation of Joints or Extremities Lymphatic: No Cervical, Supraclavicular, or Inguinal Adenopathy Neurological: Cranial nerves II-XII grossly intact, Neuro grossly intact, Motor Exam 5/5 strength throughout Psych/Mental Status: Normal Affect, Appropriate, Alert and oriented to time, place, person, mood and affect Laboratory Results 08/13/20 20:23: WBC 18.5 H, RBC 5.38, Hgb 17.6 H, Hct 51.2 H, MCV 95.2, MCH 32.7 H, MCHC 34.4, RDW Std Deviation 41.1, RDW Coeff of Sandeep 11.8, Plt Count 242, MPV 10.4, Immature Gran % (Auto) 0.400, Neut % (Auto) 90.5 H, Lymph % (Auto) 1.8 L, [place] % (Auto) 7.0, Eos % (Auto) 0.1, Baso % (Auto) 0.2, Absolute Neuts (auto) 16.7 H, Absolute Lymphs (auto) 0.33 L, Nucleated RBC % 0, Differential Comment 08/13/20 21:55: Sodium 127 L, Potassium 3.5, Chloride 89 L, Carbon Dioxide 25.0, Anion Gap 13, BUN 22 H, Creatinine 1.12 H, Estim Creat Clear Calc 59.27, Est GFR (MDRD) Af Amer 66, Est GFR (MDRD) Non-Af 54 L, BUN/Creatinine Ratio 19.6, Glucose 144 H, Calcium 9.7, Total Bilirubin 1.70 H, AST 269 H, ALT 154 H, Alkaline Phosphatase 129 H, Total Protein 9.0 H, Albumin 4.1, Globulin 4.9 H, Albumin/Globulin Ratio 0.8 L, Lipase 9034 H 08/13/20 21:55: Phosphorus 5.8 H, Magnesium 1.8 08/13/20 21:55: Hemoglobin A1c 5.3 08/14/20 05:36: WBC 14.5 H, RBC 4.55, Hgb 15.1 H, Hct 44.1, MCV 96.9, MCH 33.2 H , MCHC 34.2, RDW Std Deviation 41.0, RDW Coeff of Sandeep 11.5 L, Plt Count 153, MPV 10.3, Immature Gran % (Auto) 0.300, Neut % (Auto) 88.7 H, Lymph % (Auto) 3.5 L, [place] % (Auto) 7.4, Eos % (Auto) 0.0, Baso % (Auto) 0.1, Absolute Neuts (auto) 12.9 H, Absolute Lymphs (auto) 0.51 L, Nucleated RBC % 0, Differential Comment SCANNED 08/14/20 05:36: Sodium 131 L, Potassium 3.8, Chloride 100, Carbon Dioxide 22.0, Anion Gap 9, BUN 22 H, Creatinine 0.86, Estim Creat Clear Calc 77.19, Est GFR (MDRD) Af Amer 88, Est GFR (MDRD) Non-Af 73, BUN/Creatinine Ratio 25.4 H, Glucose 121 H, Calcium 7.8 L, Total Bilirubin 0.70, AST 192 H, ALT 102 H, Alkaline Phosphatase 88, Total Protein 6.6, Albumin 2.6 L, Globulin 4.0, Albumin/Globulin Ratio 0.6 L, Triglycerides 58, Cholesterol 116, LDL Cholesterol 14, VLDL Cholesterol 12, HDL Cholesterol 90, Lipase 5628 H 08/14/20 07:43: Urine Color Yellow, Urine Clarity Clear, Urine pH 6.0, Ur Specific [place] 1.015, Urine Protein 30 H, Urine Glucose (UA) Normal, Urine Ke tones 5 H, Urine Occult Blood 25 H, Urine Nitrite Positive H, Urine Bilirubin 1 H, Urine Urobilinogen 1 H, Ur Leukocyte Esterase 25 H Diagnostic Data Abdomen/Pelvis CT 08/13/20 21:00 IMPRESSION: Acute pancreatitis Electronically Signed: Spencer Miguel MD at 23:05 EST , Service support , Current Medications Acetaminophen (Acetaminophen 325 Mg Tablet) 650 mg PO Q4H PRN PRN PRN Reason: Temp > 100.4 F, pain 1-10/10 Al Hydroxide/Mg Hydroxide (Mag Hydrox/Al Hydrox/Simeth 30 Ml Udc) 30 ml PO Q6H PRN PRN PRN Reason: dyspesia Albuterol Sulfate (Albuterol 2.5 Mg/3 Ml Vial.Neb.) 2.5 mg INHALATION Q2H PRN PRN PRN Reason: Dyspnea, wheezing Albuterol/Ipratropium (Ipratropium/Albuterol Sulfate 3 Ml Ampul.Neb) 3 ml INHALATION Q6HWA.RT BENNY Last Admin: 08/14/20 13:23 Dose: 3 ml Documented by: Bisacodyl (Bisacodyl 10 Mg Suppository) 10 mg RC DAILY PRN PRN Reason: Constipation Dicyclomine HCl (Dicyclomine 10 Mg Capsule) 20 mg PO Q6H PRN PRN PRN Reason: abdominal discomfort Enoxaparin Sodium (Enoxaparin 40 Mg/0.4 Ml Syringe) 40 mg SC DAILY [facility] Last Admin: 08/14/20 09:47 Dose: 40 mg Documented by: Folic Acid (Folic Acid 1 Mg Tablet) 1 mg PO DAILY@0800 [facility] Last Admin: 08/14/20 09:46 Dose: 1 mg Documented by: Gabapentin (Gabapentin 300 Mg Capsule) 300 mg PO Q8H PRN PRN PRN Reason: moderate to severe anxiety Guaifenesin (Guaifenesin 10 Ml Udc (200mg/10ml)) 20 ml PO Q4H PRN PRN PRN Reason: COUGH Hydralazine HCl (Hydralazine 20 Mg/Ml Vial) 10 mg IV Q4H PRN PRN PRN Reason: SBP > 160 Hydromorphone HCl (Hydromorphone 0.5 Mg/0.5 Ml Syringe) 0.5 mg IV Q4H PRN PRN PRN Reason: Pain Score 6-10 Last Admin: 08/14/20 12:32 Dose: 0.5 mg Documented by: Hydroxyzine Pamoate (Hydroxyzine Katalina 25 Mg Capsule) 50 mg PO Q4H PRN PRN PRN Reason: mild anxiety Sodium Chloride () 1,000 mls @ 150 mls/hr IV .Q6H40M [facility] Last Admin: 08/14/20 09:34 Dose: 150 mls/hr Documented by: Pantoprazole Sodium 40 mg/ (Sodium Chloride) 110 mls @ 330 mls/hr IV Q12 [facility] Last Infusion: 08/14/20 10:20 Dose: Infused Documented by: Ketorolac Tromethamine (Ketorolac 15 Mg/Ml Vial) 15 mg IV Q8H [facility] Stop: 08/14/20 16:23 Last Admin: 08/14/20 09:34 Dose: 15 mg Documented by: Loperamide HCl (Loperamide 2 Mg Capsule) 2 mg PO Q4H PRN PRN PRN Reason: LOOSE STOOLS Multivitamins ([facility],Therapeutic Tablet) [facility] Last Admin: 08/14/20 09:46 Dose: 1 tablet Documented by: Nicotine (Nicotine 21 Mg Patch) 21 mg TD DAILY [facility] Last Admin: 08/14/20 09:46 Dose: 21 mg Documented by: Nitroglycerin (Nitroglycerin (Inpatient Use) 0.4 Mg Tab.Subl) 0.4 mg SUBLINGUAL Q5M PRN PRN Reason: CARDIAC/CHEST PAIN Nutritional Formula (Lactose Free) (Ensure Enlive 120 Ml Liquid) 120 ml PO 4X/DAY [facility] Last Admin: 08/14/20 13:17 Dose: Not Given Documented by: Ondansetron HCl (Ondansetron 8 Mg Tablet) 8 mg PO Q8H PRN PRN PRN Reason: NAUSEA Ondansetron HCl (Ondansetron 4 Mg/2 Ml Vial) 4 mg IV Q8H PRN PRN PRN Reason: NAUSEA/VOMITING Oxycodone HCl (Oxycodone 5 Mg Tablet) 5 mg PO Q4H PRN PRN PRN Reason: Pain Score 4-5 Phenobarbital (Phenobarbital 32.4 Mg Tablet) 97.2 mg PO Q4H [facility]; Taper Stop: 08/18/20 08:29 Last Admin: 08/14/20 12:26 Dose: 97.2 mg Documented by: Prochlorperazine Edisylate (Prochlorperazine 10 Mg/2 Ml Vial) 5 mg IV Q4H PRN PRN PRN Reason: Breakthrough nausea/vomiting Senna (Senna Tablet) 2 tablet PO QHS PRN PRN PRN Reason: Constipation Sodium Chloride (0.9% Saline Lock 10 Ml Syringe) 10 - 40 ml IV UD PRN PRN Reason: SALINE FLUSH Last Admin: 08/14/20 00:35 Dose: 10 ml Documented by: Thiamine HCl (Thiamine Hydrochloride 100 Mg Tablet) [facility] Last Admin: 08/14/20 09:45 Dose: 100 mg Documented by: Throat Lozenges (Benzocaine/Menthol 1 Lozenge) 1 lozenge MUCOUS MEM Q2H PRN PRN PRN Reason: SORE THROAT Trazodone HCl (Trazodone 100 Mg Tablet) 100 mg PO QHS PRN PRN PRN Reason: INSOMNIA STROKE Vital Signs/Narrative: Vital Signs Temp Pulse Resp BP BP Pulse Ox 08/14/20 13:23 98 17 99 08/14/20 12:27 131/101 H 08/14/20 12:22 96 95 08/14/20 10:42 98.4 F 99 22 H 124/93 H 94 08/14/20 10:00 98.4 F 99 22 H 124/93 H 94 Medical Necessity - Tobacco Use Smoking Status: Current every day smoker Tobacco Use: Cigarettes Assessment/Plan All Active Problems Elevated LFTs (Acute) Acute cholecystitis (Acute) Acute pancreatitis (Acute) Acute hyponatremia (Acute) Alcohol withdrawal (Acute) Hyperglycemia (Acute) #Acute pancreatitis * lipase trending down * still having abdominal pain * keep NPO * continue hydrating with IV fluids * continue pain meds- dilaudid and #Acute on chronic hyponatremia * sodium is up to 131 from 127 on admission * continue hydrating with IVF * #elevated liver enzymes: trending down. due to alcohol abuse. WIll monitor #Alcohol dependence * drinks at 6-12 beers daily * on alcohol withdrawal protocol with phenobarb. * monitor CIWA * #ERICA: resolved. Cr down to 0.86 #Leucocytosis: due to acute pancreatitis. now down to 14.5 #Hyperglycemia: A1C is 5.3 #Anxiety and depression: on bupriopion and prozac as well as latuda. #Hyperlipidemia: on statins. This was held due to elevated liver enzymes #GERD: on PPI #Hypothyroidism: on synthroid DVT: on PPI Inpatient E&M: 38094 Subs Hosp L3
[2020-08-14] MEDS: oxyCODONE 5 MG Tablet PO (15:51)
[2020-08-14] MEDS: Acetaminophen 325 MG Tablet 650 MG PO (15:52)
--- NOTE | 2020-08-14 17:20 | NURSING ---
Student documentation reviewed.
[2020-08-14] MEDS: Senna Tablet 2 TABLET PO (20:13)
[2020-08-15] VITALS (10 sets, daily range): BP systolic 109–135; BP diastolic 71–100; PULSE 97–110; RESP 14–20; TEMP 36.6–37.6; O2SAT 90–97
[2020-08-15] MEDS: Phenobarbital 32.4 MG Tablet PO ×6 (00:24→20:42)
[2020-08-15] MEDS: HYDROmorphone 0.5 MG/0.5 ML SYRINGE IV ×3 (02:22→10:46)
[2020-08-15] MEDS: 0.9% Normal Saline 1,000 ML 150 ML IV ×3 (05:53→20:28)
[2020-08-15 08:31] LABS: Absolute Lymphocyte Count 0.56 X10^3/uL (0.83-4.51); Absolute Neutrophil Count 9.3 X10^3/uL (2.0-7.7); Basophil# 0.02 X10^3/uL; Basophil% 0.2 % (0-1); Hematocrit 39.2 % (37-47); Hemoglobin 12.9 g/dL (12.0-15.0); Lymphocyte # 0.56 X10^3/ul (4.0); Mean Corp Hgb Conc 32.9 g/dL (32-36); Mean Corpuscular Hgb 33.2 pg (27.0-32.0); Mean Corpuscular Volume 100.8 fL (81-99); Mean Platelet Vol. 10.9 fl (6.2-12.0); Monocyte# 1.21 X10^3/uL; Monocyte% 10.9 % (0-10); NRBC Flagged by Analyzer 0 % (0-5); Neutrophil # 9.29 X10^3/uL (2.7-7.7); Neutrophil % 83.6 % (47-70); POSITIVE DIFFERENTIAL YES; Platelet Count 123 K/mm3 (150-450); RBC Distribution Width CV 11.8 % (11.6-14.6); RBC Distribution Width SD 43.3 fl (35.1-43.9); Red Blood Count 3.89 M/mm3 (4.2-5.4); White Blood Count 11.1 K/mm3 (4.4-11.0)
[2020-08-15 08:35] LABS: Differential Indicated SCAN CRITERIA MET
[2020-08-15] MEDS: Enoxaparin 40 MG/0.4 ML Syringe SC (08:46)
[2020-08-15] MEDS: Acetaminophen 325 MG Tablet 650 MG PO ×3 (08:46→20:41)
[2020-08-15] MEDS: Folic Acid 1 MG Tablet PO (08:46)
[2020-08-15] MEDS: Multivitamins,Therapeutic Tablet 1 TABLET PO (08:46)
[2020-08-15] MEDS: Thiamine Hydrochloride 100 MG Tablet PO (08:46)
[2020-08-15] MEDS: oxyCODONE 5 MG Tablet PO ×3 (08:47→20:42)
[2020-08-15 08:55] LABS: ALB/GLOB Ratio 0.5 RATIO (0.9-2.4); AST(SGOT) 104 U/L (15-37); Alanine Aminotransfer ALT/SGPT 61 U/L (13-56); Albumin, Serum 1.9 g/dL (3.2-5.0); Alkaline Phosphatase 74 U/L (45-117); Anion Gap 5 (5-15); BUN 15 mg/dL (7-18); BUN/Creat Ratio 35.4 RATIO (10-20); Calcium,Total 7.5 mg/dL (8.5-10.1); Chloride 103 mmol/L (98-107); Creatinine, Serum 0.42 mg/dL (0.55-1.02); EST Glomerular Filtration Rate 166 mL/min (>60); Est Glom Filt Rate - Afr Amer 201 mL/min (>60); Estimated Creatinine Clearance 158.06 ml/min; Globulin 3.5 g/dL (2.2-4.2); Glucose 80 mg/dL (74-106); Potassium 3.8 mmol/L (3.5-5.1); Protein, Total 5.4 g/dL (6.4-8.2); Sodium Level 132 mmol/L (136-145)
[2020-08-15] MEDS: Albuterol 2.5 MG/3 ML VIAL.NEB. INHALATION (08:58)
--- NOTE | 2020-08-15 11:31 | PN_ITS ---
Patient Problems: Active and Suspected Problems Elevated LFTs (Acute) Acute pancreatitis (Acute) Acute hyponatremia (Acute) Alcohol withdrawal (Acute) Hyperglycemia (Acute) Subjective: Patient seen and examined. Abdominal pain is better today. She has no other complaints and review of systems otherwise negative. She is agreeable to start on a clear liquid diet today. She has remained hemodynamically stable. Vitals/I&O's: Vital Signs Temp Pulse Resp BP Pulse Ox 98 F 97 20 H 115/81 H 92 08/15/20 10:30 08/15/20 10:30 08/15/20 10:30 08/15/20 10:30 08/15/20 10:30 Oxygen Flow Rate (L/min) 2 Oxygen Delivery Method Nasal Cannula Weight: 175 lb 7.807 oz Body Mass Index (BMI) 26.7 Intake and Output for Last 24 Hours 08/13/20 08/14/20 08/15/20 23:59 23:59 23:59 Intake Total 1000 / 1000 4455.0 / 4455.0 1060 / 1060 Output Total 800 / 800 800 / 800 Balance 1000 / 1000 3655.0 / 3655.0 260 / 260 General: Alert, Oriented x3, Cooperative, No apparent distress HEENT: Atraumatic, PERRLA, EOMI, Normocephalic Oral: Dry Mucosa Neck: Supple, No JVD, Negative Carotid Bruits Lungs: Clear to auscultation, Normal air movement Cardiovascular: Regular rate, Regular Rhythm, Normal S1, Normal S2, No murmurs Abdomen: Bowel Sounds Present, Soft, -mild epigastric tenderness Extremities: No clubbing, No cyanosis, No edema, Capillary Refill Less than 3 Seconds Skin: No rashes, No breakdown Musculoskeletal: No Tenderness to Palpation of Joints or Extremities Lymphatic: No Cervical, Supraclavicular, or Inguinal Adenopathy Neurological: Cranial nerves II-XII grossly intact, Neuro grossly intact, Motor Exam 5/5 strength throughout Psych/Mental Status: Normal Affect, Appropriate, Alert and oriented to time, place, person, mood and affect Laboratory Results 08/15/20 08:00: WBC 11.1 H, RBC 3.89 L, Hgb 12.9, Hct 39.2, MCV 100.8 H, MCH 33.2 H, MCHC 32.9, RDW Std Deviation 43.3, RDW Coeff of Sandeep 11.8, Plt Count 123 L, MPV 10.9, Immature Gran % (Auto) 0.300, Neut % (Auto) 83.6 H, Lymph % (Auto) 5.0 L, [place] % (Auto) 10.9 H, Eos % (Auto) 0.0, Baso % (Auto) 0.2, Absolute Neuts (auto) 9.3 H, Absolute Lymphs (auto) 0.56 L, Nucleated RBC % 0, Differential Comment COMMENT 08/15/20 08:00: Sodium 132 L, Potassium 3.8, Chloride 103, Carbon Dioxide 24.0, Anion Gap 5, BUN 15, Creatinine 0.42 L, Estim Creat Clear Calc 158.06, Est GFR (MDRD) Af Amer 201, Est GFR (MDRD) Non-Af 166, BUN/Creatinine Ratio 35.4 H, Glucose 80, Calcium 7.5 L, Total Bilirubin 0.50, AST 104 H, ALT 61 H, Alkaline Phosphatase 74, Total Protein 5.4 L, Albumin 1.9 L, Globulin 3.5, Albumin/Globulin Ratio 0.5 L Diagnostic Data Abdomen/Pelvis CT 08/13/20 21:00 IMPRESSION: Acute pancreatitis Electronically Signed: Spencer Miguel MD at 23:05 EST , Service support , Current Medications Acetaminophen (Acetaminophen 325 Mg Tablet) 650 mg PO Q4H PRN PRN PRN Reason: Temp > 100.4 F, pain 1-03/29 Last Admin: 08/15/20 08:46 Dose: 650 mg Documented by: Al Hydroxide/Mg Hydroxide (Mag Hydrox/Al Hydrox/Simeth 30 Ml Udc) 30 ml PO Q6H PRN PRN PRN Reason: dyspesia Albuterol Sulfate (Albuterol 2.5 Mg/3 Ml Vial.Neb.) 2.5 mg INHALATION Q2H PRN PRN PRN Reason: Dyspnea, wheezing Last Admin: 08/15/20 08:58 Dose: 2.5 mg Documented by: Albuterol/Ipratropium (Ipratropium/Albuterol Sulfate 3 Ml Ampul.Neb) 3 ml INHALATION Q6HWA.RT BENNY Last Admin: 08/14/20 13:23 Dose: 3 ml Documented by: Bisacodyl (Bisacodyl 10 Mg Suppository) 10 mg RC DAILY PRN PRN Reason: Constipation Dicyclomine HCl (Dicyclomine 10 Mg Capsule) 20 mg PO Q6H PRN PRN PRN Reason: abdominal discomfort Enoxaparin Sodium (Enoxaparin 40 Mg/0.4 Ml Syringe) 40 mg SC DAILY [facility] Last Admin: 08/15/20 08:46 Dose: 40 mg Documented by: Folic Acid (Folic Acid 1 Mg Tablet) 1 mg PO DAILY@0800 [facility] Last Admin: 08/15/20 08:46 Dose: 1 mg Documented by: Gabapentin (Gabapentin 300 Mg Capsule) 300 mg PO Q8H PRN PRN PRN Reason: moderate to severe anxiety Guaifenesin (Guaifenesin 10 Ml Udc (200mg/10ml)) 20 ml PO Q4H PRN PRN PRN Reason: COUGH Hydralazine HCl (Hydralazine 20 Mg/Ml Vial) 10 mg IV Q4H PRN PRN PRN Reason: SBP > 160 Hydromorphone HCl (Hydromorphone 0.5 Mg/0.5 Ml Syringe) 0.5 mg IV Q4H PRN PRN PRN Reason: Pain Score 6-10 Last Admin: 08/15/20 10:46 Dose: 0.5 mg Documented by: Hydroxyzine Pamoate (Hydroxyzine Katalina 25 Mg Capsule) 50 mg PO Q4H PRN PRN PRN Reason: mild anxiety Sodium Chloride () 1,000 mls @ 150 mls/hr IV .Q6H40M [facility] Last Admin: 08/15/20 05:53 Dose: 150 mls/hr Documented by: Pantoprazole Sodium 40 mg/ (Sodium Chloride) 110 mls @ 330 mls/hr IV Q12 [facility] Last Admin: 08/15/20 08:48 Dose: 330 mls/hr Documented by: Loperamide HCl (Loperamide 2 Mg Capsule) 2 mg PO Q4H PRN PRN PRN Reason: LOOSE STOOLS Multivitamins (Multivitamins,Therapeutic Tablet) [facility] Last Admin: 08/15/20 08:46 Dose: 1 tablet Documented by: Nicotine (Nicotine 21 Mg Patch) 21 mg TD DAILY [facility] Last Admin: 08/15/20 08:47 Dose: 21 mg Documented by: Nitroglycerin (Nitroglycerin (Inpatient Use) 0.4 Mg Tab.Subl) 0.4 mg SUBLINGUAL Q5M PRN PRN Reason: CARDIAC/CHEST PAIN Ondansetron HCl (Ondansetron 8 Mg Tablet) 8 mg PO Q8H PRN PRN PRN Reason: NAUSEA Ondansetron HCl (Ondansetron 4 Mg/2 Ml Vial) 4 mg IV Q8H PRN PRN PRN Reason: NAUSEA/VOMITING Oxycodone HCl (Oxycodone 5 Mg Tablet) 5 mg PO Q4H PRN PRN PRN Reason: Pain Score 4-5 Last Admin: 08/15/20 08:47 Dose: 5 mg Documented by: Phenobarbital (Phenobarbital 32.4 Mg Tablet) 64.8 mg PO Q4H [facility]; Taper Stop: 08/18/20 08:29 Last Admin: 08/15/20 08:47 Dose: 64.8 mg Documented by: Prochlorperazine Edisylate (Prochlorperazine 10 Mg/2 Ml Vial) 5 mg IV Q4H PRN PRN PRN Reason: Breakthrough nausea/vomiting Senna (Senna Tablet) 2 tablet PO QHS PRN PRN PRN Reason: Constipation Last Admin: 08/14/20 20:13 Dose: 2 tablet Documented by: Sodium Chloride (0.9% Saline Lock 10 Ml Syringe) 10 - 40 ml IV UD PRN PRN Reason: SALINE FLUSH Last Admin: 08/14/20 00:35 Dose: 10 ml Documented by: Thiamine HCl (Thiamine Hydrochloride 100 Mg Tablet) [facility] Last Admin: 08/15/20 08:46 Dose: 100 mg Documented by: Throat Lozenges (Benzocaine/Menthol 1 Lozenge) 1 lozenge MUCOUS MEM Q2H PRN PRN PRN Reason: SORE THROAT Trazodone HCl (Trazodone 100 Mg Tablet) 100 mg PO QHS PRN PRN PRN Reason: INSOMNIA STROKE Vital Signs/Narrative: Vital Signs Temp Pulse Resp BP Pulse Ox 08/15/20 10:30 98 F 97 20 H 115/81 H 92 08/15/20 09:00 110 H 14 08/15/20 08:22 98.9 F 110 H 18 135/95 H 95 08/15/20 07:50 99.4 F H 101 H 20 H 122/84 H 96 Medical Necessity - Tobacco Use Smoking Status: Current every day smoker Tobacco Use: Cigarettes Assessment/Plan All Active Problems Elevated LFTs (Acute) Acute cholecystitis (Acute) Acute pancreatitis (Acute) Acute hyponatremia (Acute) Alcohol withdrawal (Acute) Hyperglycemia (Acute) #Acute pancreatitis * abdominal pain is improving. * will start on clear liquid diet, and advance as tolerated * continue gentle hydration with IVF * continue IV dilaudid * still having abdominal pain * keep NPO * continue hydrating with IV fluids * continue pain meds- dilaudid and tylenol #Acute on chronic hyponatremia * sodium is up to 132 from 127 on admission * continue hydrating with IVF * #elevated liver enzymes: trending down. due to alcohol abuse. WIll monitor #Alcohol dependence * drinks at 6-12 beers daily * on alcohol withdrawal protocol with phenobarb. * monitor CIWA * #ERICA: resolved. #Leucocytosis: due to acute pancreatitis. now down to 11.1 #Hyperglycemia: A1C is 5.3. Will monitor #Anxiety and depression: on bupriopion and prozac as well as latuda. #Hyperlipidemia: on statins. This was held due to elevated liver enzymes. Will resume #GERD: on PPI #Hypothyroidism: on synthroid DVT: on lovenox Inpatient E&M: 40009 Subs Hosp L2
[2020-08-15] MEDS: Ipratropium/Albuterol Sulfate 3 ML AMPUL.NEB INHALATION ×2 (13:29→18:28)
[2020-08-15] MEDS: guaiFENesin 10 ML UDC (200MG/10ML) 20 ML PO (16:25)
[2020-08-15] MEDS: traZODone 100 MG Tablet PO (20:42)
[2020-08-16] VITALS (9 sets, daily range): BP systolic 127–144; BP diastolic 75–91; PULSE 80–112; RESP 16–20; TEMP 36.6–37.3; O2SAT 90–97
[2020-08-16] MEDS: Phenobarbital 32.4 MG Tablet PO ×5 (01:27→20:15)
[2020-08-16] MEDS: Acetaminophen 325 MG Tablet 650 MG PO ×4 (02:33→20:15)
[2020-08-16] MEDS: oxyCODONE 5 MG Tablet PO ×4 (02:33→20:15)
[2020-08-16] MEDS: 0.9% Normal Saline 1,000 ML 150 ML IV ×4 (03:51→20:16)
[2020-08-16] MEDS: Ipratropium/Albuterol Sulfate 3 ML AMPUL.NEB INHALATION ×3 (07:10→19:25)
[2020-08-16] MEDS: Thiamine Hydrochloride 100 MG Tablet PO (08:19)
[2020-08-16] MEDS: Folic Acid 1 MG Tablet PO (08:19)
[2020-08-16] MEDS: Multivitamins,Therapeutic Tablet 1 TABLET PO (08:19)
[2020-08-16] MEDS: Enoxaparin 40 MG/0.4 ML Syringe SC (08:20)
[2020-08-16] MEDS: Senna Tablet 2 TABLET PO ×2 (08:24→20:15)
[2020-08-16] MEDS: Dicyclomine 10 MG Capsule 20 MG PO ×2 (08:24→20:15)
[2020-08-16 08:48] LABS: Absolute Neutrophil Count 7.2 X10^3/uL (2.0-7.7); Basophil# 0.01 X10^3/uL; Basophil% 0.1 % (0-1); Eosinophil# 0.03 X10^3/uL; Eosinophils% 0.3 % (0-5); Hemoglobin 12.2 g/dL (12.0-15.0); Lymphocyte % 6.4 % (19-41); Mean Corpuscular Hgb 33.1 pg (27.0-32.0); Mean Corpuscular Volume 100.3 fL (81-99); Mean Platelet Vol. 10.7 fl (6.2-12.0); Monocyte# 1.45 X10^3/uL; Monocyte% 15.5 % (0-10); NRBC Flagged by Analyzer 0 % (0-5); Neutrophil % 77.2 % (47-70); POSITIVE DIFFERENTIAL YES; Platelet Count 135 K/mm3 (150-450); RBC Distribution Width CV 11.5 % (11.6-14.6); Red Blood Count 3.69 M/mm3 (4.2-5.4); White Blood Count 9.3 K/mm3 (4.4-11.0)
[2020-08-16 08:51] LABS: Differential Indicated SCAN CRITERIA MET
[2020-08-16 09:29] LABS: ALB/GLOB Ratio 0.5 RATIO (0.9-2.4); AST(SGOT) 60 U/L (15-37); Alanine Aminotransfer ALT/SGPT 46 U/L (13-56); Albumin, Serum 1.9 g/dL (3.2-5.0); Alkaline Phosphatase 69 U/L (45-117); Anion Gap 6 (5-15); BUN 8 mg/dL (7-18); BUN/Creat Ratio 16.7 RATIO (10-20); Calcium,Total 7.6 mg/dL (8.5-10.1); Chloride 100 mmol/L (98-107); Creatinine, Serum 0.48 mg/dL (0.55-1.02); EST Glomerular Filtration Rate 145 mL/min (>60); Est Glom Filt Rate - Afr Amer 175 mL/min (>60); Globulin 3.6 g/dL (2.2-4.2); Glucose 66 mg/dL (74-106); Potassium 3.7 mmol/L (3.5-5.1); Protein, Total 5.5 g/dL (6.4-8.2); Sodium Level 130 mmol/L (136-145)
--- NOTE | 2020-08-16 11:55 | PCM.PN.HOSP ---
Patient Problems: Active and Suspected Problems Elevated LFTs (Acute) Acute pancreatitis (Acute) Acute hyponatremia (Acute) Alcohol withdrawal (Acute) Hyperglycemia (Acute) Subjective: Patient seen and examined. She states pain is much better today. She is willing to advance her diet to a soft diet and think she can tolerate it. Review of systems otherwise negative. Sodium level is 130 today. AST is trended down significantly. Vitals/I&O's: Vital Signs Temp Pulse Resp BP Pulse Ox 97.8 F 97 18 140/86 H 94 08/16/20 08:49 08/16/20 08:49 08/16/20 08:49 08/16/20 08:49 08/16/20 08:49 Oxygen Flow Rate (L/min) 2 Oxygen Delivery Method Room Air Weight: 176 lb 5.917 oz Body Mass Index (BMI) 26.7 Intake and Output for Last 24 Hours 08/14/20 08/15/20 08/16/20 23:59 23:59 23:59 Intake Total 4455.0 / 4455.0 4880 / 4880 1500 / 1500 Output Total 800 / 800 1850 / 1850 500 / 500 Balance 3655.0 / 3655.0 3030 / 3030 1000 / 1000 General: Alert, Oriented x3, Cooperative, No apparent distress HEENT: Atraumatic, PERRLA, EOMI, Normocephalic Oral: Dry Mucosa Neck: Supple, No JVD, Negative Carotid Bruits Lungs: Clear to auscultation, Normal air movement Cardiovascular: Regular rate, Regular Rhythm, Normal S1, Normal S2, No murmurs Abdomen: Bowel Sounds Present, Soft, -mild epigastric tenderness, no guarding or rebound tenderness Extremities: No clubbing, No cyanosis, No edema, Capillary Refill Less than 3 Seconds Skin: No rashes, No breakdown Musculoskeletal: No Tenderness to Palpation of Joints or Extremities Lymphatic: No Cervical, Supraclavicular, or Inguinal Adenopathy Neurological: Cranial nerves II-XII grossly intact, Neuro grossly intact, Motor Exam 5/5 strength throughout Psych/Mental Status: Normal Affect, Appropriate, Alert and oriented to time, place, person, mood and affect Laboratory Results 08/16/20 08:33: WBC 9.3, RBC 3.69 L, Hgb 12.2, Hct 37.0, MCV 100.3 H, MCH 33.1 H, MCHC 33.0, RDW Std Deviation 42.0, RDW Coeff of Sandeep 11.5 L, Plt Count 135 L, MPV 10.7, Immature Gran % (Auto) 0.500, Neut % (Auto) 77.2 H, Lymph % (Auto) 6.4 L, [place] % (Auto) 15.5 H, Eos % (Auto) 0.3, Baso % (Auto) 0.1, Absolute Neuts (auto) 7.2, Absolute Lymphs (auto) 0.60 L, Nucleated RBC % 0 08/16/20 08:33: Sodium 130 L, Potassium 3.7, Chloride 100, Carbon Dioxide 24.0, Anion Gap 6, BUN 8, Creatinine 0.48 L, Estim Creat Clear Calc 138.30, Est GFR (MDRD) Af Amer 175, Est GFR (MDRD) Non-Af 145, BUN/Creatinine Ratio 16.7, Glucose 66 L, Calcium 7.6 L, Total Bilirubin 0.40, AST 60 H, ALT 46, Alkaline Phosphatase 69, Total Protein 5.5 L, Albumin 1.9 L, Globulin 3.6, Albumin/Globulin Ratio 0.5 L Diagnostic Data Abdomen/Pelvis CT 08/13/20 21:00 IMPRESSION: Acute pancreatitis Electronically Signed: Spencer Miguel MD at 23:05 EST , Service support , Current Medications Acetaminophen (Acetaminophen 325 Mg Tablet) 650 mg PO Q4H PRN PRN PRN Reason: Temp > 100.4 F, pain 1-03/29 Last Admin: 08/16/20 08:24 Dose: 650 mg Documented by: Al Hydroxide/Mg Hydroxide (Mag Hydrox/Al Hydrox/Simeth 30 Ml Udc) 30 ml PO Q6H PRN PRN PRN Reason: dyspesia Albuterol Sulfate (Albuterol 2.5 Mg/3 Ml Vial.Neb.) 2.5 mg INHALATION Q2H PRN PRN PRN Reason: Dyspnea, wheezing Last Admin: 08/15/20 08:58 Dose: 2.5 mg Documented by: Albuterol/Ipratropium (Ipratropium/Albuterol Sulfate 3 Ml Ampul.Neb) 3 ml INHALATION Q6HWA.RT [facility] Last Admin: 08/16/20 07:10 Dose: 3 ml Documented by: Bisacodyl (Bisacodyl 10 Mg Suppository) 10 mg RC DAILY PRN PRN Reason: Constipation Dicyclomine HCl (Dicyclomine 10 Mg Capsule) 20 mg PO Q6H PRN PRN PRN Reason: abdominal discomfort Last Admin: 08/16/20 08:24 Dose: 20 mg Documented by: Enoxaparin Sodium (Enoxaparin 40 Mg/0.4 Ml Syringe) 40 mg SC DAILY [facility] Last Admin: 08/16/20 08:20 Dose: 40 mg Documented by: Folic Acid (Folic Acid 1 Mg Tablet) 1 mg PO DAILY@0800 [facility] Last Admin: 08/16/20 08:19 Dose: 1 mg Documented by: Gabapentin (Gabapentin 300 Mg Capsule) 300 mg PO Q8H PRN PRN PRN Reason: moderate to severe anxiety Guaifenesin (Guaifenesin 10 Ml Udc (200mg/10ml)) 20 ml PO Q4H PRN PRN PRN Reason: COUGH Last Admin: 08/15/20 16:25 Dose: 20 ml Documented by: Hydralazine HCl (Hydralazine 20 Mg/Ml Vial) 10 mg IV Q4H PRN PRN PRN Reason: SBP > 160 Hydromorphone HCl (Hydromorphone 0.5 Mg/0.5 Ml Syringe) 0.5 mg IV Q4H PRN PRN PRN Reason: Pain Score 6-10 Last Admin: 08/15/20 10:46 Dose: 0.5 mg Documented by: Hydroxyzine Pamoate (Hydroxyzine Katalina 25 Mg Capsule) 50 mg PO Q4H PRN PRN PRN Reason: mild anxiety Sodium Chloride () 1,000 mls @ 150 mls/hr IV .Q6H40M [facility] Last Admin: 08/16/20 03:51 Dose: 150 mls/hr Documented by: Pantoprazole Sodium 40 mg/ (Sodium Chloride) 110 mls @ 330 mls/hr IV Q12 [facility] Last Admin: 08/16/20 08:20 Dose: 330 mls/hr Documented by: Loperamide HCl (Loperamide 2 Mg Capsule) 2 mg PO Q4H PRN PRN PRN Reason: LOOSE STOOLS Multivitamins ([facility]itamins,Therapeutic Tablet) [facility] Last Admin: 08/16/20 08:19 Dose: 1 tablet Documented by: Nicotine (Nicotine 21 Mg Patch) 21 mg TD DAILY [facility] Last Admin: 08/16/20 08:20 Dose: 21 mg Documented by: Nitroglycerin (Nitroglycerin (Inpatient Use) 0.4 Mg Tab.Subl) 0.4 mg SUBLINGUAL Q5M PRN PRN Reason: CARDIAC/CHEST PAIN Ondansetron HCl (Ondansetron 8 Mg Tablet) 8 mg PO Q8H PRN PRN PRN Reason: NAUSEA Ondansetron HCl (Ondansetron 4 Mg/2 Ml Vial) 4 mg IV Q8H PRN PRN PRN Reason: NAUSEA/VOMITING Oxycodone HCl (Oxycodone 5 Mg Tablet) 5 mg PO Q4H PRN PRN PRN Reason: Pain Score 4-5 Last Admin: 08/16/20 08:24 Dose: 5 mg Documented by: Phenobarbital (Phenobarbital 32.4 Mg Tablet) 64.8 mg PO Q6H [facility]; Taper Stop: 08/18/20 08:29 Last Admin: 08/16/20 08:19 Dose: 64.8 mg Documented by: Prochlorperazine Edisylate (Prochlorperazine 10 Mg/2 Ml Vial) 5 mg IV Q4H PRN PRN PRN Reason: Breakthrough nausea/vomiting Senna (Senna Tablet) 2 tablet PO QHS PRN PRN PRN Reason: Constipation Last Admin: 08/16/20 08:24 Dose: 2 tablet Documented by: Sodium Chloride (0.9% Saline Lock 10 Ml Syringe) 10 - 40 ml IV UD PRN PRN Reason: SALINE FLUSH Last Admin: 08/14/20 00:35 Dose: 10 ml Documented by: Thiamine HCl (Thiamine Hydrochloride 100 Mg Tablet) [facility] Last Admin: 08/16/20 08:19 Dose: 100 mg Documented by: Throat Lozenges (Benzocaine/Menthol 1 Lozenge) 1 lozenge MUCOUS MEM Q2H PRN PRN PRN Reason: SORE THROAT Trazodone HCl (Trazodone 100 Mg Tablet) 100 mg PO QHS PRN PRN PRN Reason: INSOMNIA Last Admin: 08/15/20 20:42 Dose: 100 mg Documented by: STROKE Vital Signs/Narrative: Vital Signs Temp Pulse Resp BP Pulse Ox 08/16/20 08:49 97.8 F 97 18 140/86 H 94 Medical Necessity - Tobacco Use Smoking Status: Current every day smoker Tobacco Use: Cigarettes Assessment/Plan All Active Problems Elevated LFTs (Acute) Acute cholecystitis (Acute) Acute pancreatitis (Acute) Acute hyponatremia (Acute) Alcohol withdrawal (Acute) Hyperglycemia (Acute) #Acute pancreatitis abdominal pain is much better today tolerated clear liquid diet; will advance to soft diet. on IV dilaudid and tylenol #Acute on chronic hyponatremia sodium is 130 today. likely due to chronic alcohol use. continue gentle hydration with IVF #elevated liver enzymes: trending down. due to alcohol abuse. WIll monitor #Alcohol dependence drinks at 6-12 beers daily on alcohol withdrawal protocol with phenobarb. monitor CIWA #[place]: resolved. #Leucocytosis: due to acute pancreatitis. resoled. Wbc down to 9.3 #Hyperglycemia: A1C is 5.3. no evidence of diabetes #Anxiety and depression: on bupriopion and prozac as well as latuda. #Hyperlipidemia: on statins. This was held due to elevated liver enzymes. Will resume #GERD: on PPI #Hypothyroidism: on synthroid DVT: on lovenox Inpatient E&M: 21739 Subs Hosp L2
[2020-08-16] MEDS: Pregabalin 75 MG Capsule 150 MG PO ×2 (15:16→21:32)
[2020-08-16] MEDS: Ferrous Sulfate 325 MG Tablet PO (15:17)
[2020-08-16] MEDS: traZODone 100 MG Tablet PO (20:15)
[2020-08-16] MEDS: Atorvastatin Calcium 40 MG Tablet PO (21:34)
[2020-08-16] MEDS: Famotidine 20 MG Tablet PO (21:34)
[2020-08-17] VITALS (7 sets, daily range): BP systolic 132–152; BP diastolic 90–97; PULSE 102–117; RESP 16–18; TEMP 36.6–37.2; O2SAT 92–98
[2020-08-17] MEDS: Phenobarbital 32.4 MG Tablet PO ×2 (02:13→08:12)
[2020-08-17] MEDS: Pregabalin 75 MG Capsule 150 MG PO ×2 (05:51→13:34)
[2020-08-17] MEDS: Levothyroxine 25 MCG TABLET PO (05:51)
[2020-08-17] MEDS: 0.9% Normal Saline 1,000 ML 150 ML IV (05:52)
[2020-08-17 05:55] LABS: Absolute Lymphocyte Count 0.56 X10^3/uL (0.83-4.51); Absolute Neutrophil Count 7.1 X10^3/uL (2.0-7.7); Basophil# 0.02 X10^3/uL; Basophil% 0.2 % (0-1); Eosinophil# 0.06 X10^3/uL; Eosinophils% 0.7 % (0-5); Hematocrit 39.1 % (37-47); Hemoglobin 12.6 g/dL (12.0-15.0); Lymphocyte # 0.56 X10^3/ul (4.0); Lymphocyte % 6.1 % (19-41); Mean Corp Hgb Conc 32.2 g/dL (32-36); Mean Corpuscular Hgb 31.8 pg (27.0-32.0); Mean Corpuscular Volume 98.7 fL (81-99); Mean Platelet Vol. 10.7 fl (6.2-12.0); Monocyte# 1.35 X10^3/uL; Monocyte% 14.8 % (0-10); NRBC Flagged by Analyzer 0 % (0-5); Neutrophil % 77.5 % (47-70); POSITIVE DIFFERENTIAL YES; Platelet Count 183 K/mm3 (150-450); RBC Distribution Width CV 11.4 % (11.6-14.6); RBC Distribution Width SD 41.5 fl (35.1-43.9); Red Blood Count 3.96 M/mm3 (4.2-5.4); White Blood Count 9.2 K/mm3 (4.4-11.0)
[2020-08-17 06:22] LABS: Differential Indicated SCAN CRITERIA MET
[2020-08-17 06:39] LABS: ALB/GLOB Ratio 0.4 RATIO (0.9-2.4); AST(SGOT) 51 U/L (15-37); Alanine Aminotransfer ALT/SGPT 41 U/L (13-56); Albumin, Serum 1.8 g/dL (3.2-5.0); Alkaline Phosphatase 81 U/L (45-117); Anion Gap 7 (5-15); BUN 5 mg/dL (7-18); BUN/Creat Ratio 12.6 RATIO (10-20); Calcium,Total 7.9 mg/dL (8.5-10.1); Chloride 103 mmol/L (98-107); EST Glomerular Filtration Rate 179 mL/min (>60); Est Glom Filt Rate - Afr Amer 217 mL/min (>60); Estimated Creatinine Clearance 165.96 ml/min; Glucose 69 mg/dL (74-106); Potassium 3.3 mmol/L (3.5-5.1); Protein, Total 5.8 g/dL (6.4-8.2); Sodium Level 132 mmol/L (136-145)
[2020-08-17 07:01] LABS: Differential Comment SCANNED
[2020-08-17] MEDS: Ipratropium/Albuterol Sulfate 3 ML AMPUL.NEB INHALATION (07:41)
--- NOTE | 2020-08-17 07:44 | CPS ---
patient wears 2L of O2 at night to sleep
[2020-08-17] MEDS: Pantoprazole Sodium 40 MG Tablet PO (08:10)
[2020-08-17] MEDS: Potassium Chloride Oral Tablet 20 MEQ 60 MEQ PO (08:10)
[2020-08-17] MEDS: oxyCODONE 5 MG Tablet PO (08:10)
[2020-08-17] MEDS: Acetaminophen 325 MG Tablet 650 MG PO (08:11)
[2020-08-17] MEDS: Folic Acid 1 MG Tablet PO (08:12)
[2020-08-17] MEDS: Lisinopril 20 MG Tablet PO (08:12)
[2020-08-17] MEDS: Multivitamins,Therapeutic Tablet 1 TABLET PO (08:12)
[2020-08-17] MEDS: FLUoxetine 20 MG Capsule 60 MG PO (08:12)
[2020-08-17] MEDS: buPROPion (XL) 150 MG TABLET.XL PO (08:12)
[2020-08-17] MEDS: Thiamine Hydrochloride 100 MG Tablet PO (08:13)
[2020-08-17] MEDS: Enoxaparin 40 MG/0.4 ML Syringe SC (08:13)
[2020-08-17] MEDS: Potassium Chloride Oral Tablet 10 MEQ PO (10:09)
--- NOTE | 2020-08-17 12:01 | PCM.DC ---
- Discharge Diagnoses Current Active Problems: Current Active and Chronic Problems Anxiety and depression (Chronic) HLD (hyperlipidemia) (Chronic) Tobacco use (Chronic) Elevated LFTs (Acute) SANA (obstructive sleep apnea) (Chronic) Hypothyroidism (Chronic) Alcohol abuse (Chronic) Acute pancreatitis (Acute) Acute hyponatremia (Acute) Alcohol withdrawal (Acute) Hyperglycemia (Acute) Hypertension (Chronic) COPD (chronic obstructive pulmonary disease) with emphysema (Chronic) Back pain (Chronic) PTSD (post-traumatic stress disorder) (Chronic) Anemia of unknown etiology (Chronic) Chronic GERD (Chronic) You will use the following diet at home:: Cardiac Your food should be the consistency of: Regular Your liquids should be the consistency of: Regular/Thin Discharge Activity: Return to Normal Activity Weight Bearing Status: Weight bearing as tolerated Call your doctor if you observe: Fever of 101 or Higher, Shortness of breath, Uncontrolled pain, - - worsening abdominal pain Instructions: Acute Pancreatitis, Life After Combat: Coping with Alcohol Abuse, The Impact of Alcoholism, Alcoholism: Getting Help Allergies/Adverse Reactions: Allergies fentanyl Adverse Reaction (Verified 08/13/20 19:45) Anaphylaxis varenicline [From Chantix] Adverse Reaction (Verified 08/13/20 19:45) hallucinations Medications to take at Discharge Omeprazole [Prilosec] 40 mg PO DAILY 11/13/15 Famotidine [Pepcid] 20 mg PO QHS 12/18/15 Lisinopril [Zestril] 20 mg PO DAILY 12/18/15 buPROPion XL [Wellbutrin Xl] 150 mg PO DAILY 01/29/16 Ferrous Sulfate 325 mg PO BIDCM 03/04/16 Atorvastatin Calcium [Lipitor] 40 mg PO QHS 10/05/16 Cholecalciferol (Vitamin D3) [Vitamin D3] 5,000 unit PO DAILY 10/05/16 Furosemide [Lasix] 40 mg PO DAILY 10/05/16 Fluoxetine [Prozac] 60 mg PO DAILY 12/16/16 Lurasidone HCl [Latuda] 80 mg PO DAILY 12/16/16 Levothyroxine [Synthroid] 25 mcg PO DAILY 02/28/17 Albuterol Aerosols [Ventolin Aerosols] 2.5 mg INHALATION Q4H PRN PRN 12/07/19 Albuterol Sulfate [Albuterol Sulfate HFA] 2 puff IH TID PRN 12/07/19 Baclofen 10 mg PO BID PRN 12/07/19 Diclofenac [Voltaren] 75 mg PO BID 12/07/19 Fluticasone/Vilanterol [Breo Ellipta 200-25 Mcg INH] 1 ea IH DAILY 12/07/19 Melatonin 5 mg PO QHS PRN 12/07/19 Potassium Chloride 10 meq PO DAILY 12/07/19 Pregabalin 150 mg PO TID 12/07/19 Tiotropium [place] [Spiriva] 18 mcg IH DAILY 05/10/20 Primary Care Physician: Memo Chairez MD [Primary Care Provider] - Please follow up with your Primary Care Physician in: 1-2 weeks Test Results: Test results from this visit will be discussed in further detail at your follow-up appointment, if applicable. Proposed Discharge Date: 08/17/20
--- NOTE | 2020-08-17 12:03 | PCM.DC.SUM ---
Discharge Date and Diagnosis - Problem List Patient Problems: Active and Suspected Problems Elevated LFTs (Acute) Acute pancreatitis (Acute) Acute hyponatremia (Acute) Alcohol withdrawal (Acute) Hyperglycemia (Acute) Date of Admission: 08/13/20 Date of Discharge: 08/17/20 - Primary Discharge Diagnosis Acute Problems: Active Problems Elevated LFTs (Acute) Acute pancreatitis (Acute) Acute hyponatremia (Acute) Alcohol withdrawal (Acute) Hyperglycemia (Acute) - Secondary Discharge Diagnosis Chronic Problems: Chronic Problems Anxiety and depression (Chronic) HLD (hyperlipidemia) (Chronic) Tobacco use (Chronic) SANA (obstructive sleep apnea) (Chronic) Hypothyroidism (Chronic) Alcohol abuse (Chronic) Hypertension (Chronic) COPD (chronic obstructive pulmonary disease) with emphysema (Chronic) Back pain (Chronic) PTSD (post-traumatic stress disorder) (Chronic) Depression (Chronic) Anemia of unknown etiology (Chronic) Chronic GERD (Chronic) Pulmonary embolism (Chronic) Hospital Course and Treatment Imaging Results: Diagnostic Data Abdomen/Pelvis CT 08/13/20 21:00 IMPRESSION: Acute pancreatitis Electronically Signed: Spencer Miguel MD at 23:05 EST , Service support , Operations: [email or web address] - Description of Surgical Findings:: thickened gallbladder wall with areas of gangrene, enlarged liver with fatty infiltration changes, ascites Procedures: None Summary of Care Provided: The patient is a 50 year old F the past medical history as outlined was admitted through the ED on 08/17/2020 with a complaint of abdominal pain. Pain was mainly epigastric and worsened over the last 24 hours prior to admission. Patient had recently driven to and from [place] where she had significant alcohol consumption and says she drank about 6-8 beers daily. She had associated nausea and tactile disturbances and also tremors. She was noted to be tachycardic and heart rate was 114. Blood pressure was markedly elevated at 200/140. CT of the abdomen and pelvis showed evidence of acute pancreatitis and lipase was also elevated at 9034. She was admitted and managed for acute pancreatitis due to alcohol. She was kept n.p.o. and started on IV pain medication and hydrated aggressively with IV fluids. Pain gradually improved and she was also started on oral diet. She was started on clear liquid diet which she tolerated and was advanced slowly to soft diet then to regular diet. Of note, she also started on alcohol withdrawal protocol with phenobarbital. Hip pain subsequently improved markedly and virtually resolved. She tolerated regular diet and remained stable. She was counseled to quit drinking. She was discharged home on 08/17/2020 and is to follow-up with her primary care doctor in 1 to 2 weeks. Of note, stay was also complicated by hypokalemia which resolved with treatment. Patient seen and examined prior to discharge. She had no complaints. Pain had improved vastly. Review of systems otherwise negative. Labs and vitals reviewed. Medication reviewed and reconciled. O/E: Vital Signs Temp Pulse Resp BP Pulse Ox 98.8 F 117 H 18 137/90 H 94 08/17/20 12:08 08/17/20 12:08 08/17/20 12:08 08/17/20 12:08/17/20 12:08 [] General: Alert, Oriented x3, Cooperative, No apparent distress HEENT: Atraumatic, PERRLA, EOMI, Normocephalic Oral: Dry Mucosa Neck: Supple, No JVD, Negative Carotid Bruits Lungs: Clear to auscultation, Normal air movement Cardiovascular: Regular rate, Regular Rhythm, Normal S1, Normal S2, No murmurs Abdomen: Bowel Sounds Present, Soft, -minimal epigastric tenderness, no guarding or rebound tenderness Extremities: No clubbing, No cyanosis, No edema, Capillary Refill Less than 3 Seconds Skin: No rashes, No breakdown Musculoskeletal: No Tenderness to Palpation of Joints or Extremities Lymphatic: No Cervical, Supraclavicular, or Inguinal Adenopathy Neurological: Cranial nerves II-XII grossly intact, Neuro grossly intact, Motor Exam 5/5 strength throughout Psych/Mental Status: Normal Affect, Appropriate, Alert and oriented to time, place, person, mood and affect Plan is for discharge home today. Patient Problems: Active and Suspected Problems Elevated LFTs (Acute) Acute pancreatitis (Acute) Acute hyponatremia (Acute) Alcohol withdrawal (Acute) Hyperglycemia (Acute) - Physical Exam Vitals/I&O's: Vital Signs Temp Pulse Resp BP Pulse Ox 98.7 F 115 H 18 132/93 H 92 08/17/20 10:12 08/17/20 10:08/17/20 10:12 08/17/20 10:12 08/17/20 10:12 Oxygen Flow Rate (L/min) 2 Oxygen Delivery Method Room Air Weight: 177 lb 4.026 oz Body Mass Index (BMI) 26.7 Intake and Output for Last 24 Hours 08/15/20 08/16/20 08/17/20 23:59 23:59 23:59 Intake Total 4880 / 4880 4975 / 5575 2585 / 2585 Output Total 1850 / 1850 2300 / 2300 1200 / 1200 Balance 3030 / 3030 2675 / 3275 1385 / 1385 Laboratory Results 08/17/20 05:08: WBC 9.2, RBC 3.96 L, Hgb 12.6, Hct 39.1, MCV 98.7, MCH 31.8, MCHC 32.2, RDW Std Deviation 41.5, RDW Coeff of Sandeep 11.4 L, Plt Count 183, MPV 10.7, Immature Gran % (Auto) 0.700, Neut % (Auto) 77.5 H, Lymph % (Auto) 6.1 L, [place] % (Auto) 14.8 H, Eos % (Auto) 0.7, Baso % (Auto) 0.2, Absolute Neuts (auto) 7.1, Absolute Lymphs (auto) 0.56 L, Nucleated RBC % 0, Differential Comment SCANNED 08/17/20 05:08: Sodium 132 L, Potassium 3.3 L, Chloride 103, Carbon Dioxide 22.0, Anion Gap 7, BUN 5 L, Creatinine 0.40 L, Estim Creat Clear Calc 165.96, Est GFR (MDRD) Af Amer 217, Est GFR (MDRD) Non-Af 179, BUN/Creatinine Ratio 12.6, Glucose 69 L, Calcium 7.9 L, Total Bilirubin 0.40, AST 51 H, ALT 41, Alkaline Phosphatase 81, Total Protein 5.8 L, Albumin 1.8 L, Globulin 4.0, Albumin/Globulin Ratio 0.4 L Current Medications Acetaminophen (Acetaminophen 325 Mg Tablet) 650 mg PO Q4H PRN PRN PRN Reason: Temp > 100.4 F, pain 1-03/29 Last Admin: 08/17/20 08:11 Dose: 650 mg Documented by: Al Hydroxide/Mg Hydroxide (Mag Hydrox/Al Hydrox/Simeth 30 Ml Udc) 30 ml PO Q6H PRN PRN PRN Reason: dyspesia Albuterol Sulfate (Albuterol 2.5 Mg/3 Ml Vial.Neb.) 2.5 mg INHALATION Q2H PRN PRN PRN Reason: Dyspnea, wheezing Last Admin: 08/15/20 08:58 Dose: 2.5 mg Documented by: Albuterol/Ipratropium (Ipratropium/Albuterol Sulfate 3 Ml Ampul.Neb) 3 ml INHALATION Q6HWA.RT [facility] Last Admin: 08/17/20 07:41 Dose: 3 ml Documented by: Atorvastatin Calcium (Atorvastatin Calcium 40 Mg Tablet) 40 mg PO QHS [facility] Last Admin: 08/16/20 21:34 Dose: 40 mg Documented by: Bisacodyl (Bisacodyl 10 Mg Suppository) 10 mg RC DAILY PRN PRN Reason: Constipation Bupropion HCl (Bupropion (Xl) 150 Mg Tablet.Xl) 150 mg PO DAILY [facility] Last Admin: 08/17/20 08:12 Dose: 150 mg Documented by: Cholecalciferol (Cholecalciferol (Vit D3) 1,000 Unit (25mcg)) 5,000 unit PO DAILY [facility] Last Admin: 08/17/20 08:13 Dose: 5,000 unit Documented by: Dicyclomine HCl (Dicyclomine 10 Mg Capsule) 20 mg PO Q6H PRN PRN PRN Reason: abdominal discomfort Last Admin: 08/16/20 20:15 Dose: 20 mg Documented by: Enoxaparin Sodium (Enoxaparin 40 Mg/0.4 Ml Syringe) 40 mg SC DAILY [facility] Last Admin: 08/17/20 08:13 Dose: 40 mg Documented by: Famotidine (Famotidine 20 Mg Tablet) 20 mg PO QHS [facility] Last Admin: 08/16/20 21:34 Dose: 20 mg Documented by: Ferrous Sulfate (Ferrous Sulfate 325 Mg Tablet) 325 mg PO BID@1200,1700 [facility] Last Admin: 08/16/20 15:17 Dose: 325 mg Documented by: Fluoxetine HCl (Fluoxetine 20 Mg Capsule) 60 mg PO DAILY [facility] Last Admin: 08/17/20 08:12 Dose: 60 mg Documented by: Folic Acid (Folic Acid 1 Mg Tablet) 1 mg PO DAILY@0800 [facility] Last Admin: 08/17/20 08:12 Dose: 1 mg Documented by: Gabapentin (Gabapentin 300 Mg Capsule) 300 mg PO Q8H PRN PRN PRN Reason: moderate to severe anxiety Hydralazine HCl (Hydralazine 20 Mg/Ml Vial) 10 mg IV Q4H PRN PRN PRN Reason: SBP > 160 Hydromorphone HCl (Hydromorphone 0.5 Mg/0.5 Ml Syringe) 0.5 mg IV Q4H PRN PRN PRN Reason: Pain Score 6-10 Last Admin: 08/15/20 10:46 Dose: 0.5 mg Documented by: Hydroxyzine Pamoate (Hydroxyzine [place] 25 Mg Capsule) 50 mg PO Q4H PRN PRN PRN Reason: mild anxiety Levothyroxine Sodium (Levothyroxine 25 Mcg Tablet) 25 mcg PO DAILY@0600 [facility] Last Admin: 08/17/20 05:51 Dose: 25 mcg Documented by: Lisinopril (Lisinopril 20 Mg Tablet) 20 mg PO DAILY [facility] Last Admin: 08/17/20 08:12 Dose: 20 mg Documented by: Loperamide HCl (Loperamide 2 Mg Capsule) 2 mg PO Q4H PRN PRN PRN Reason: LOOSE STOOLS Melatonin (Melatonin 10 Mg Tablet) 5 mg PO QHS PRN PRN PRN Reason: SLEEP Multivitamins (Multivitamins,Therapeutic Tablet) [facility] Last Admin: 08/17/20 08:12 Dose: 1 tablet Documented by: Nicotine (Nicotine 21 Mg Patch) 21 mg TD DAILY [facility] Last Admin: 08/17/20 08:14 Dose: 21 mg Documented by: Nitroglycerin (Nitroglycerin (Inpatient Use) 0.4 Mg Tab.Subl) 0.4 mg SUBLINGUAL Q5M PRN PRN Reason: CARDIAC/CHEST PAIN Ondansetron HCl (Ondansetron 8 Mg Tablet) 8 mg PO Q8H PRN PRN PRN Reason: NAUSEA Ondansetron HCl (Ondansetron 4 Mg/2 Ml Vial) 4 mg IV Q8H PRN PRN PRN Reason: NAUSEA/VOMITING Oxycodone HCl (Oxycodone 5 Mg Tablet) 5 mg PO Q4H PRN PRN PRN Reason: Pain Score 4-5 Last Admin: 08/17/20 08:10 Dose: 5 mg Documented by: Pantoprazole Sodium (Pantoprazole Sodium 40 Mg Tablet) 40 mg PO DAILY [facility] Last Admin: 08/17/20 08:10 Dose: 40 mg Documented by: Phenobarbital (Phenobarbital 32.4 Mg Tablet) 32.4 mg PO Q6H [facility]; Taper Stop: 08/18/20 08:29 Last Admin: 08/17/20 08:12 Dose: 32.4 mg Documented by: Potassium Chloride (Potassium Chloride Oral Tablet 10 Meq) 10 meq PO DAILY [facility] Last Admin: 08/17/20 10:09 Dose: 10 meq Documented by: Pregabalin (Pregabalin 75 Mg Capsule) 150 mg PO TID [facility] Last Admin: 08/17/20 05:51 Dose: 150 mg Documented by: Prochlorperazine Edisylate (Prochlorperazine 10 Mg/2 Ml Vial) 5 mg IV Q4H PRN PRN PRN Reason: Breakthrough nausea/vomiting Senna (Senna Tablet) 2 tablet PO QHS PRN PRN PRN Reason: Constipation Last Admin: 08/16/20 20:15 Dose: 2 tablet Documented by: Sodium Chloride (0.9% Saline Lock 10 Ml Syringe) 10 - 40 ml IV UD PRN PRN Reason: SALINE FLUSH Last Admin: 08/14/20 00:35 Dose: 10 ml Documented by: Thiamine HCl (Thiamine Hydrochloride 100 Mg Tablet) [facility] Last Admin: 08/17/20 08:13 Dose: 100 mg Documented by: Throat Lozenges (Benzocaine/Menthol 1 Lozenge) 1 lozenge MUCOUS MEM Q2H PRN PRN PRN Reason: SORE THROAT Trazodone HCl (Trazodone 100 Mg Tablet) 100 mg PO QHS PRN PRN PRN Reason: INSOMNIA Last Admin: 08/16/20 20:15 Dose: 100 mg Documented by: Discharge Diet: Low fat/ Low Cholesterol Discharge Activity: Return to Normal Activity Weight Bearing Status: Weight bearing as tolerated Call your doctor if you observe: Fever of 101 or Higher, Shortness of breath, Uncontrolled pain, - - worsening abdominal pain Home Medications: Medications to take at Discharge Omeprazole [Prilosec] 40 mg PO DAILY 11/13/15 Famotidine [Pepcid] 20 mg PO QHS 12/18/15 Lisinopril [Zestril] 20 mg PO DAILY 12/18/15 buPROPion XL [Wellbutrin Xl] 150 mg PO DAILY 01/29/16 Ferrous Sulfate 325 mg PO BIDCM 03/04/16 Atorvastatin Calcium [Lipitor] 40 mg PO QHS 10/05/16 Cholecalciferol (Vitamin D3) [Vitamin D3] 5,000 unit PO DAILY 10/05/16 Furosemide [Lasix] 40 mg PO DAILY 10/05/16 Fluoxetine [Prozac] 60 mg PO DAILY 12/16/16 Lurasidone HCl [Latuda] 80 mg PO DAILY 12/16/16 Levothyroxine [Synthroid] 25 mcg PO DAILY 02/28/17 Albuterol Aerosols [Ventolin Aerosols] 2.5 mg INHALATION Q4H PRN PRN 12/07/19 Albuterol Sulfate [Albuterol Sulfate HFA] 2 puff IH TID PRN 12/07/19 Baclofen 10 mg PO BID PRN 12/07/19 Diclofenac [Voltaren] 75 mg PO BID 12/07/19 Fluticasone/Vilanterol [Breo Ellipta 200-25 Mcg INH] 1 ea IH DAILY 12/07/19 Melatonin 5 mg PO QHS PRN 12/07/19 Potassium Chloride 10 meq PO DAILY 12/07/19 Pregabalin 150 mg PO TID 12/07/19 Tiotropium [place] [Spiriva] 18 mcg IH DAILY 05/10/20 Primary Care Physician: Memo Chairez MD [Primary Care Provider] - Please follow up with your Primary Care Physician in: 1-2 weeks Patient Instructions: Life After Combat: Coping with Alcohol Abuse, The Impact of Alcoholism, Alcoholism: Getting Help, Acute Pancreatitis Disposition: Home Minutes spent on discharge:: 40 Patient Condition:: Stable Medical Necessity - Tobacco Use Smoking Status: Current every day smoker Tobacco Use: Cigarettes Meaningful Use Info Meaningful Use Diagnoses (Choose all that apply): None applicable Inpatient E&M: 10313 Disch Hosp
[2020-08-17] MEDS: Ferrous Sulfate 325 MG Tablet PO (12:13)
[2020-08-17] MEDS: hydrOXYzine PAM 25 MG Capsule 50 MG PO (13:38)
--- NOTE | 2020-08-19 12:34 | CASEMGMT ---
YAYA HUGHES DC PHONE CALL DC DATE: 08/17/20 DC DISPOSITION: Home DC DIAGNOSIS: pancreatitis, ETOH abuse LACE/STRATA: 01/10 F/U APPTS MADE PRIOR TO DC: no, but patient has f/u appt on August. PRESCRIPTIONS ACQUIRED BY PT: no new prescriptions. Intro role of CM to patient via phone. The patient states she is feeling improved, but has increased swelling in her feet. Patient is on Lasix and took her dose this am. No other symptoms currently such as shortness of breath (worse than her baseline as she is a smoker with COPD). YAYA HUGHES discussed contacting physician office in am if swelling worsens.No further questions and no care improvement suggestions. Andrae MUSE RN ACM
== END 2020-08-17 13:50 | disposition home or self-care (01) | DRG 282 ==
LOC: ED 22:38 → MS3 08-14 00:01
PROVIDERS: Admitting Provider Family Medicine; Emergency Provider Student in an Organized Health Care Education/Training Program; PCP Family Medicine; Visit Provider Student in an Organized Health Care Education/Training Program
DX: K85.20 Alcohol induced acute pancreatitis without necrosis or infection (principal); F10.239 Alcohol dependence with withdrawal, unspecified; E87.1 Hypo-osmolality and hyponatremia; N17.9 Acute kidney failure, unspecified; F31.9 Bipolar disorder, unspecified; F43.12 Post-traumatic stress disorder, chronic; K21.9 Gastro-esophageal reflux disease without esophagitis; I10 Essential (primary) hypertension; E03.9 Hypothyroidism, unspecified; E78.5 Hyperlipidemia, unspecified; J44.9 Chronic obstructive pulmonary disease, unspecified; Y90.9 Presence of alcohol in blood, level not specified; R73.9 Hyperglycemia, unspecified; E87.6 Hypokalemia; G47.33 Obstructive sleep apnea (adult) (pediatric); F17.210 Nicotine dependence, cigarettes, uncomplicated; K76.0 Fatty (change of) liver, not elsewhere classified; D50.9 Iron deficiency anemia, unspecified; E66.9 Obesity, unspecified; Z68.30 Body mass index [BMI] 30.0-30.9, adult; Z80.1 Family history of malignant neoplasm of trachea, bronchus and lung; Z79.890 Hormone replacement therapy; Z90.49 Acquired absence of other specified parts of digestive tract; Z90.710 Acquired absence of both cervix and uterus; Z82.3 Family history of stroke; R18.8 Other ascites
CPT/HCPCS: 36415; 74177; 80053; 80061; 81002; 83036; 83690; 83735; 84100; 85025; 93005; 94640; 97802; 99251; 99285; 99406; J7030; Q9967; A4216; G0463; J2405

== ENCOUNTER 2020-10-27 22:35 | Inpatient (IN) | payer MEDICAID, SELFPAY ==
[2020-08-14 00:17] VITALS: BMI 26.7
[2020-10-27 22:37] VITALS: BP 119/99; PULSE 108; RESP 16; TEMP 36; O2SAT 96; BMI 28.1
--- NOTE | 2020-10-27 23:02 | EX.ED.DYSGE1 ---
HPI History of Present Illness Chief Complaint: Substance Abuse Narrative Narrative: Patient presents to the emergency department with wishes to go through alcohol detox. She was seen by Dr. Jauregui and sent to the emergency department for detox. She has a history of pancreatitis and she also has some slight epigastric pain. She has been drinking about 8-12 beers a day however these are 8% beers. She has no back pain. She has no chest pain or shortness of breath although she has COPD. [facility] Medical History (Updated 10/28/20 @ 00:[address] Brenden Garrido MD) Alcohol abuse Anxiety COPD (chronic obstructive pulmonary disease) Depression Hypothyroidism Pulmonary embolism Sleep apnea Home Medications Omeprazole [Prilosec] 40 mg PO DAILY 11/13/15 [History Last Taken 08/12/20] famotidine 20 mg PO QHS 12/18/15 [History Last Taken 08/11/20] lisinopril 20 mg PO DAILY 12/18/15 [History Last Taken 08/12/20] bupropion HCl 150 mg PO DAILY 01/29/16 [History Last Taken 08/12/20] ferrous sulfate 325 mg PO BIDCM 03/04/16 [History Last Taken 08/12/20] atorvastatin 40 mg PO QHS 10/05/16 [History Last Taken 08/11/20] cholecalciferol (vitamin D3) [Vitamin D3] 5,000 unit PO DAILY 10/05/16 [History Last Taken 08/12/20] furosemide 40 mg PO DAILY 10/05/16 [History Last Taken 08/12/20] Latuda 80 mg PO DAILY 12/16/16 [History Last Taken 08/12/20] fluoxetine 60 mg PO DAILY 12/16/16 [History Last Taken 08/12/20] levothyroxine 25 mcg PO DAILY 02/28/17 [History Last Taken 08/12/20] albuterol sulfate 2 puff IH TID PRN 12/07/19 [History Last Taken 08/12/20] albuterol sulfate 2.5 mg INHALATION Q4H PRN PRN 12/07/19 [History Last Taken 08/12/20] diclofenac sodium 75 mg PO BID 12/07/19 [History Last Taken 08/12/20] fluticasone furoate-vilanterol 1 ea IH DAILY 12/07/19 [History Last Taken 08/12/20] melatonin 5 mg PO QHS PRN 12/07/19 [History Last Taken 08/12/20] potassium chloride 10 meq PO DAILY 12/07/19 [History Last Taken 08/12/20] tiotropium bromide 18 mcg IH DAILY 05/10/20 [History Last Taken 08/12/20] Allergy/AdvReac Type Severity Reaction Status Date / Time fentanyl AdvReac Anaphylaxis Verified 10/27/20 22:49 [email or web address] [From Chantix] AdvReac hallucinati Verified 10/27/20 22:49 ons Social History Smoking Status: Current every day smoker ROS ROS ED ROS Narrative Past medical history: Reviewed, includes COPD, hypertension, PTSD, depression, GERD, hyperlipidemia, alcohol abuse, history of pancreatitis. She does have a history of alcohol withdrawal symptoms. Medications: Reviewed Social history: As in HPI Review of systems: All systems negative except as indicated General: No fever Eyes: No visual changes ENT: No upper airway congestion, normal voice Neck: No neck pain Cardiovascular: No chest pain Respiratory: No shortness of breath or cough Gastrointestinal: Mild epigastric pain. Genitourinary: No dysuria Musculoskeletal: Denies myalgias no difficulty with ambulation Skin: No rash Neurological: No memory loss, confusion or any focal weakness Psych: No recent behavioral changes Hematologic: No easy bleeding or easy bruising EXAM Physical Exam Narrative Exam Narrative: Physical exam General: Patient appears chronically ill she does not appear in significant distress she does not appear anxious. Head: Normocephalic, Atraumatic Eyes: Conjunctiva not pale ENT: Moist mucous membranes Neck: Supple, Nontender, No lymphadenopathy Cardiovascular: Regular rhythm, slightly tachycardic Respiratory: Bilateral end expiratory wheezing, however she is speaking in full sentences without any respiratory distress Abdomen: Soft, mild epigastric pain. No right upper quadrant pain. Negative Kennedy's. No lower abdominal pain. Back: Nontender, Normal Inspection. Negative for: CVA tenderness Extremities: Nontender, No edema Skin: Normal color, No rash Neurological: Alert, Normal Strength, Normal Sensation Psychological: Normal affect Const Vital Signs: 10/27/20 22:37 10/27/20 23:39 Temperature 96.8 F L Temperature Source Temporal Pulse Rate 108 H Respiratory Rate 16 16 Blood Pressure 119/99 H Blood Pressure Mean 105 Pulse Ox 96 Oxygen Delivery Method Room Air MDM MDM MDM Narrative Medical decision making narrative: Patient has no signs or symptoms of pancreatitis. She does have however a low sodium of 121. This is likely secondary to the amount of beer she drinks. I will admit her for detox. Lab Data Labs: Laboratory Results - last 24 hr 10/27/20 10/27/20 10/27/20 23:15 23:15 23:15 WBC 9.6 RBC 4.31 Hgb 13.1 Hct 38.5 MCV 89.3 MCH 30.4 MCHC 34.0 RDW Std Deviation 38.9 RDW Coeff of Sandeep 12.0 Plt Count 305 MPV 10.9 Immature Gran % (Auto) 0.200 Neut % (Auto) 57.5 Lymph % (Auto) 31.7 [place] % (Auto) 7.3 Eos % (Auto) 2.6 Baso % (Auto) 0.7 Absolute Neuts (auto) 5.5 Absolute Lymphs (auto) 3.05 Nucleated RBC % 0 Sodium 121 L Potassium 3.8 Chloride 86 L Carbon Dioxide 23.0 Anion Gap 12 BUN 9 Creatinine 0.85 Estim Creat Clear Calc 78.10 Est GFR (MDRD) Af Amer 90 Est GFR (MDRD) Non-Af 75 BUN/Creatinine Ratio 10.6 Glucose 86 Calcium 8.8 Total Bilirubin 0.50 AST 32 ALT 39 Alkaline Phosphatase 76 Ammonia Total Protein 8.3 H Albumin 3.8 Globulin 4.5 H Albumin/Globulin Ratio 0.8 L Lipase 137 Ethyl Alcohol 90.0 10/27/20 10/27/20 23:15 23:30 WBC RBC Hgb Hct MCV MCH MCHC RDW Std Deviation RDW Coeff of Sandeep Plt Count MPV Immature Gran % (Auto) Neut % (Auto) Lymph % (Auto) [place] % (Auto) Eos % (Auto) Baso % (Auto) Absolute Neuts (auto) Absolute Lymphs (auto) Nucleated RBC % Sodium Potassium Chloride Carbon Dioxide Anion Gap BUN Creatinine Estim Creat Clear Calc Est GFR (MDRD) Af Amer Est GFR (MDRD) Non-Af BUN/Creatinine Ratio Glucose Calcium Total Bilirubin AST ALT Alkaline Phosphatase Ammonia Cancelled 15.0 Total Protein Albumin Globulin Albumin/Globulin Ratio Lipase Ethyl Alcohol Discharge Plan Triage Chief Complaint: Substance Abuse ED Provider: Brenden Garrido Dx/Rx/DC Orders Clinical Impression: Acute hyponatremia, Alcohol dependence Prescriptions: No Action Omeprazole [Prilosec] 40 MG capsule 40 mg PO DAILY RF: 0 lisinopril 20 MG tablet 20 mg PO DAILY RF: 0 famotidine 20 MG tablet 20 mg PO QHS RF: 0 bupropion HCl 150 MG tablet extended release 24 hr 150 mg PO DAILY RF: 0 ferrous sulfate 325 MG tablet 325 mg PO BIDCM RF: 0 furosemide 40 MG tablet 40 mg PO DAILY RF: 0 atorvastatin 40 MG tablet 40 mg PO QHS RF: 0 cholecalciferol (vitamin D3) [Vitamin D3] 1,000 UNIT capsule 5,000 unit PO DAILY RF: 0 fluoxetine 20 MG capsule 60 mg PO DAILY RF: 0 Latuda 60 MG tablet 80 mg PO DAILY RF: 0 levothyroxine 25 MCG tablet 25 mcg PO DAILY RF: 0 albuterol sulfate 2.5 MG/3 ML solution for nebulization 2.5 mg inhalation Q4H PRN PRN (Reason: Sob &/Or Wheezing) RF: 0 potassium chloride 10 MEQ tablet extended release 10 meq PO DAILY RF: 0 diclofenac sodium 75 MG tablet 75 mg PO BID RF: 0 albuterol sulfate 90 mcg/actuation HFA aerosol inhaler 2 puff IH TID PRN (Reason: Sob &/Or Wheezing) RF: 0 melatonin 5 MG tablet 5 mg PO QHS PRN (Reason: Sleep) RF: 0 fluticasone furoate-vilanterol 1 EACH blister with device 1 ea IH DAILY RF: 0 tiotropium bromide 18 MCG capsule, w/inhalation device 18 mcg IH DAILY RF: 0 Primary Care Provider: Memo Chairez Referrals: Memo Chairez MD [Primary Care Provider] - Disposition Disposition: Acute Care Hospital [facility]
[2020-10-27 23:39] VITALS: RESP 16
[2020-10-27 23:50] LABS: ALB/GLOB Ratio 0.8 RATIO (0.9-2.4); AST(SGOT) 32 U/L (15-37); Alanine Aminotransfer ALT/SGPT 39 U/L (13-56); Albumin, Serum 3.8 g/dL (3.2-5.0); Alkaline Phosphatase 76 U/L (45-117); Anion Gap 12 (5-15); BUN 9 mg/dL (7-18); BUN/Creat Ratio 10.6 RATIO (10-20); Calcium,Total 8.8 mg/dL (8.5-10.1); Chloride 86 mmol/L (98-107); Creatinine, Serum 0.85 mg/dL (0.55-1.02); EST Glomerular Filtration Rate 75 mL/min (>60); Est Glom Filt Rate - Afr Amer 90 mL/min (>60); Globulin 4.5 g/dL (2.2-4.2); Glucose 86 mg/dL (74-106); Lipase 137 U/L (73-393); Potassium 3.8 mmol/L (3.5-5.1); Protein, Total 8.3 g/dL (6.4-8.2); Sodium Level 121 mmol/L (136-145)
[2020-10-28] VITALS (10 sets, daily range): BP systolic 112–144; BP diastolic 74–105; PULSE 78–99; RESP 16–24; TEMP 36.1–37.2; O2SAT 93–100; BMI 23.7
[2020-10-28] LABS: Absolute Lymphocyte Count 3.05 X10^3/uL (0.83-4.51); Absolute Neutrophil Count 5.5 X10^3/uL (2.0-7.7); Basophil# 0.07 X10^3/uL; Basophil% 0.7 % (0-1); Eosinophil# 0.25 X10^3/uL; Eosinophils% 2.6 % (0-5); Hematocrit 38.5 % (37-47); Hemoglobin 13.1 g/dL (12.0-15.0); Lymphocyte # 3.05 X10^3/ul (0.83-4.51); Lymphocyte % 31.7 % (19-41); Mean Corpuscular Hgb 30.4 pg (27.0-32.0); Mean Corpuscular Volume 89.3 fL (81-99); Mean Platelet Vol. 10.9 fl (6.2-12.0); Monocyte% 7.3 % (0-10); NRBC Flagged by Analyzer 0 % (0-5); Neutrophil # 5.52 X10^3/uL (2.7-7.7); Neutrophil % 57.5 % (47-70); Platelet Count 305 K/mm3 (150-450); RBC Distribution Width SD 38.9 fl (35.1-43.9); Red Blood Count 4.31 M/mm3 (4.2-5.4); White Blood Count 9.6 K/mm3 (4.4-11.0)
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
[2020-10-28 00:48] LABS: Bacteria 0 SEEN /hpf (None Seen); Mucous, Urine 0 SEEN /hpf (<or=2+); Red Blood Cells-Urine 0 SEEN /hpf (0-5); Squamous Epithelial Cells - UA 0 SEEN /hpf (5-10)
[2020-10-28 00:49] LABS: Color, Urine Yellow (Yellow); Glucose, Dipstick Normal (Normal); Ketone-Dipstick Negative (Negative); Leukocyte Esterase-Dipstick 100 /ul (Negative); Nitrite-Dipstick Negative (Negative); Occult Blood-Urine Negative /ul (Negative); Protein-Dipstick Negative (Negative); Urine Bilirubin Dipstick Negative (Negative); Urine Clarity Sl. Cloudy (Clear); Urine Urobilinogen Normal (Normal)
[2020-10-28 00:54] LABS: White Blood Cells 5-10 SEEN /hpf (0-5)
--- NOTE | 2020-10-28 00:59 | ED.RN ---
report called to ana lilia khalil.
[2020-10-28 01:13] LABS: Amphetamine Urine VISTA NEGATIVE (<1000 ng/mL); Barbiturate Urine VISTA NEGATIVE (< 200 ng/mL); Benzodiazepine Urine VISTA NEGATIVE (< 200 ng/mL); Cocaine Urine VISTA NEGATIVE (< 300 ng/mL); Ecstacy Urine VISTA POSITIVE (< 500 ng/mL); Methadone Urine VISTA NEGATIVE (< 300 ng/mL); PCP Urine VISTA NEGATIVE (< 25 ng/mL); THC Urine VISTA POSITIVE (< 50 ng/mL); Vista UDS pH Range 6
[2020-10-28] MEDS: Phenobarbital 32.4 MG Tablet 64.8 MG PO ×6 (02:20→21:50)
[2020-10-28] MEDS: 0.9% Normal Saline 1,000 ML 150 ML IV ×4 (02:22→21:46)
[2020-10-28 03:51] LABS: Absolute Lymphocyte Count 3.02 X10^3/uL (0.83-4.51); Absolute Neutrophil Count 4.6 X10^3/uL (2.0-7.7); Basophil# 0.08 X10^3/uL; Basophil% 0.9 % (0-1); Eosinophil# 0.33 X10^3/uL; Eosinophils% 3.7 % (0-5); Hematocrit 37.9 % (37-47); Hemoglobin 13.1 g/dL (12.0-15.0); Lymphocyte # 3.02 X10^3/ul (0.83-4.51); Lymphocyte % 34.1 % (19-41); Mean Corp Hgb Conc 34.6 g/dL (32-36); Mean Corpuscular Volume 89.6 fL (81-99); Mean Platelet Vol. 10.7 fl (6.2-12.0); Monocyte# 0.82 X10^3/uL; Monocyte% 9.3 % (0-10); NRBC Flagged by Analyzer 0 % (0-5); Neutrophil # 4.58 X10^3/uL (2.7-7.7); Neutrophil % 51.7 % (47-70); Platelet Count 294 K/mm3 (150-450); RBC Distribution Width SD 38.7 fl (35.1-43.9); Red Blood Count 4.23 M/mm3 (4.2-5.4); White Blood Count 8.9 K/mm3 (4.4-11.0)
[2020-10-28 04:10] LABS: ALB/GLOB Ratio 0.8 RATIO (0.9-2.4); AST(SGOT) 39 U/L (15-37); Alanine Aminotransfer ALT/SGPT 36 U/L (13-56); Albumin, Serum 3.5 g/dL (3.2-5.0); Alkaline Phosphatase 73 U/L (45-117); Anion Gap 6 (5-15); BUN 7 mg/dL (7-18); BUN/Creat Ratio 10.1 RATIO (10-20); Calcium,Total 8.5 mg/dL (8.5-10.1); Chloride 88 mmol/L (98-107); Creatinine, Serum 0.69 mg/dL (0.55-1.02); EST Glomerular Filtration Rate 95 mL/min (>60); Est Glom Filt Rate - Afr Amer 115 mL/min (>60); Estimated Creatinine Clearance 96.21 ml/min; Globulin 4.2 g/dL (2.2-4.2); Glucose 84 mg/dL (74-106); Potassium 4.3 mmol/L (3.5-5.1); Protein, Total 7.7 g/dL (6.4-8.2); Sodium Level 123 mmol/L (136-145)
[2020-10-28] MEDS: Ipratropium 0.5 MG/2.5 ML SOLUTION INHALATION ×3 (06:43→19:14)
[2020-10-28] MEDS: Levothyroxine 25 MCG TABLET PO (06:58)
[2020-10-28] MEDS: FLUoxetine 20 MG Capsule 60 MG PO (08:23)
[2020-10-28] MEDS: Enoxaparin 40 MG/0.4 ML Syringe SC (08:23)
[2020-10-28] MEDS: Cholecalciferol (VIT D3) 25 MCG TABLET (1,000 UNITS) 125 MCG PO (08:23)
[2020-10-28] MEDS: Potassium Chloride Oral Tablet 10 MEQ PO (08:23)
[2020-10-28] MEDS: Ferrous Sulfate 325 MG Tablet PO ×2 (08:24→17:45)
[2020-10-28] MEDS: Furosemide 40 MG Tablet PO (08:24)
[2020-10-28] MEDS: Lisinopril 20 MG Tablet PO (08:24)
[2020-10-28] MEDS: Thiamine Hydrochloride 100 MG Tablet PO (08:24)
[2020-10-28] MEDS: Pantoprazole Sodium 40 MG Tablet PO (08:24)
[2020-10-28] MEDS: Folic Acid 1 MG Tablet PO (08:24)
[2020-10-28] MEDS: Diclofenac 75 MG Tablet PO ×2 (08:24→21:49)
--- NOTE | 2020-10-28 09:21 | NT.THERAPY_ITS ---
Nutrition Therapy Report - History Nutrition Services has been consulted to:: Manage nutrient details of diet order Current diet / nutrition support order:: regular - Anthropometric Measurements Height:: 5 ft 8 in Weight:: 70.8 kg Body Mass Index (BMI):: 23.7 - Relevant Labs Relevant Labs:: Sodium 123 mmol/L (136-145) L 10/28/20 03:40 Chloride 88 mmol/L (98-107) L 10/28/20 03:40 AST 39 U/L (15-37) H 10/28/20 03:40 Total Protein 8.3 g/dL (6.4-8.2) H 10/27/20 23:15 Globulin 4.5 g/dL (2.2-4.2) H 10/27/20 23:15 Albumin/Globulin Ratio 0.8 RATIO (0.9-2.4) L 10/28/20 03:40 - Assessment Food / Nutrition-Related History:: Reports no PO intake for 2 days [employer] d/t a lcohol abuse. States appetite/PO intake of food has significantly declined over past 6 months d/t alcohol abuse. Pt states she is hungry, however, at time of assessment. Per EMR, wt was 194.2# on 05/11/20 and CBW 156.1#-38.1#/19.6% wt loss x 6 months is significant for malnutrition. Of note, wt was 177.3# on 08/17/20 suggesting 21.2#/12% wt lost x 3 months. - Nutrition Diagnosis Problem / Etiology / Signs & Symptoms (PES):: severe, acute malnutrition in context of social/environmental circumstances related to inadequate protein/calorie intake w/ excessive ETOH intake as evidenced by consumption of 12-15 beers/day, estimated PO intake meeting <50% of estimated nutritional needs >3 months, unintentional wt loss of 38.1#/19.6% wt loss x 6 months Evidence of Malnutrition Exists:: Yes Severe PCM:: Social & Environmental circumstances - Nutrition Intervention Nutrition Prescription:: [id number] calories/day (1.3xRMR). 70-85 g protein/day (1-1.2 g/kg). 2100mL fluid/day (30mL/kg) - Food / Nutrient Delivery Interventions Summary of nutrition intervention:: Discussed nutritional status and how alcohol abuse contributes to malnutrition. Pt is agreeable to Ensure Enlive w/ medpass. No further questions for RDN at this time. Nutrition support ordered as / adjusted to:: continue regular diet; will add 120mL ensure enlive 4x/day Nutrition education provided?: Yes - MNT Monitoring Further MNT monitoring and evaluation required?: Yes MNT Follow-up in:: 3-5 days
[2020-10-28] MEDS: Dicyclomine 10 MG Capsule 20 MG PO ×2 (10:22→17:45)
--- NOTE | 2020-10-28 10:26 | CASEMGMT ---
ALEKSANDER notified Lisandra with [facility]'s [facility] program regarding pt. Pt will likely be seen tomorrow. SHAN Ro
[2020-10-28] MEDS: Acetaminophen 325 MG Tablet 650 MG PO ×2 (14:58→21:58)
--- NOTE | 2020-10-28 15:57 | ADDICTION ---
This group underwriter met with PT to conduct ASAM, MSE, AUDIT assessments and to plan for d/c. PT A+Ox4 and participated appropriately. All assessments completed, faxed to [facility] and placed in PT's chart. PT is requesting to admit to [facility]. Referral has been made. This group underwriter will follow up with [facility] to plan for admit. [facility] to provide transportation if client is accepted into the program.
--- NOTE | 2020-10-28 16:09 | PN.HOSP_ITS ---
Subjective Subjective Feeling better. Complains of abdominal pain. Similar to when she has had pancreatitis. Was able to eat lunch. Objective Data Objective Data Vital Signs: Vital Signs Temp Pulse Resp BP Pulse Ox 36.2 C L 85 18 127/92 H 100 10/28/20 14:00 10/28/20 14:00 10/28/20 14:00 10/28/20 14:00 10/28/20 14:00 Oxygen Flow Rate (L/min) 1 Oxygen Delivery Method Room Air Weight: 70.8 kg Body Mass Index (BMI) 23.7 Intake & Output: Intake and Output for Last 24 Hours 10/26/20 10/27/20 10/28/20 23:59 23:59 23:59 Intake Total 1951.5 / 1951.5 Balance / 1951. Lab / Micro Data Result Diagrams: 10/28/20 03:40 10/28/20 03:40 Labs: Laboratory Results - last 24 hr 10/27/20 10/27/20 10/27/20 23:15 23:15 23:15 WBC 9.6 RBC 4.31 Hgb 13.1 Hct 38.5 MCV 89.3 MCH 30.4 MCHC 34.0 RDW Std Deviation 38.9 RDW Coeff of Sandeep 12.0 Plt Count 305 MPV 10.9 Immature Gran % (Auto) 0.200 Neut % (Auto) 57.5 Lymph % (Auto) 31.7 Lake % (Auto) 7.3 Eos % (Auto) 2.6 Baso % (Auto) 0.7 Absolute Neuts (auto) 5.5 Absolute Lymphs (auto) 3.05 Nucleated RBC % 0 Sodium 121 L Potassium 3.8 Chloride 86 L Carbon Dioxide 23.0 Anion Gap 12 BUN 9 Creatinine 0.85 Estim Creat Clear Calc 78.10 Est GFR (MDRD) Af Amer 90 Est GFR (MDRD) Non-Af 75 BUN/Creatinine Ratio 10.6 Glucose 86 Calcium 8.8 Total Bilirubin 0.50 AST 32 ALT 39 Alkaline Phosphatase 76 Ammonia Total Protein 8.3 H Albumin 3.8 Globulin 4.5 H Albumin/Globulin Ratio 0.8 L Lipase 137 Urine Color Urine Clarity Urine pH Ur Specific [place] Urine Protein Urine Glucose (UA) Urine Ketones Urine Occult Blood Urine Nitrite Urine Bilirubin Urine Urobilinogen Ur Leukocyte Esterase Urine RBC Urine WBC Ur Squamous Epith Cells Urine Bacteria Urine Mucus Urine Opiates Screen Urine Methadone Screen Ur Barbiturates Screen Ur Phencyclidine Scrn Ur Amphetamines Screen U Methamphetamin-MDMA U Benzodiazepines Scrn Urine Cocaine Screen U Cannabinoids Screen Ur Drug Screen Comment Ethyl Alcohol 90.0 10/27/20 10/27/20 10/28/20 23:15 23:30 00:45 WBC RBC Hgb Hct MCV MCH MCHC RDW Std Deviation RDW Coeff of Sandeep Plt Count MPV Immature Gran % (Auto) Neut % (Auto) Lymph % (Auto) Lake % (Auto) Eos % (Auto) Baso % (Auto) Absolute Neuts (auto) Absolute Lymphs (auto) Nucleated RBC % Sodium Potassium Chloride Carbon Dioxide Anion Gap BUN Creatinine Estim Creat Clear Calc Est GFR (MDRD) Af Amer Est GFR (MDRD) Non-Af BUN/Creatinine Ratio Glucose Calcium Total Bilirubin AST ALT Alkaline Phosphatase Ammonia Cancelled 15.0 Total Protein Albumin Globulin Albumin/Globulin Ratio Lipase Urine Color Yellow Urine Clarity Sl. Cloudy Urine pH 6.0 Ur Specific [place] 1.010 Urine Protein Negative Urine Glucose (UA) Normal Urine Ketones Negative Urine Occult Blood Negative Urine Nitrite Negative Urine Bilirubin Negative Urine Urobilinogen Normal Ur Leukocyte Esterase 100 H Urine RBC 0 SEEN Urine WBC 5-10 SEEN Ur Squamous Epith Cells 0 SEEN Urine Bacteria 0 SEEN Urine Mucus 0 SEEN Urine Opiates Screen Urine Methadone Screen Ur Barbiturates Screen Ur Phencyclidine Scrn Ur Amphetamines Screen U Methamphetamin-MDMA U Benzodiazepines Scrn Urine Cocaine Screen U Cannabinoids Screen Ur Drug Screen Comment Ethyl Alcohol 10/28/20 10/28/20 10/28/20 00:45 03:40 03:40 WBC 8.9 RBC 4.23 Hgb 13.1 Hct 37.9 MCV 89.6 MCH 31.0 MCHC 34.6 RDW Std Deviation 38.7 RDW Coeff of Sandeep 12.0 Plt Count 294 MPV 10.7 Immature Gran % (Auto) 0.300 Neut % (Auto) 51.7 Lymph % (Auto) 34.1 Lake % (Auto) 9.3 Eos % (Auto) 3.7 Baso % (Auto) 0.9 Absolute Neuts (auto) 4.6 Absolute Lymphs (auto) 3.02 Nucleated RBC % 0 Sodium 123 L Potassium 4.3 Chloride 88 L Carbon Dioxide 29.0 Anion Gap 6 BUN 7 Creatinine 0.69 Estim Creat Clear Calc 96.21 Est GFR (MDRD) Af Amer 115 Est GFR (MDRD) Non-Af 95 BUN/Creatinine Ratio 10.1 Glucose 84 Calcium 8.5 Total Bilirubin 0.70 AST 39 H ALT 36 Alkaline Phosphatase 73 Ammonia Total Protein 7.7 Albumin 3.5 Globulin 4.2 Albumin/Globulin Ratio 0.8 L Lipase Urine Color Urine Clarity Urine pH Ur Specific [place] Urine Protein Urine Glucose (UA) Urine Ketones Urine Occult Blood Urine Nitrite Urine Bilirubin Urine Urobilinogen Ur Leukocyte Esterase Urine RBC Urine WBC Ur Squamous Epith Cells Urine Bacteria Urine Mucus Urine Opiates Screen NEGATIVE Urine Methadone Screen NEGATIVE Ur Barbiturates Screen NEGATIVE Ur Phencyclidine Scrn NEGATIVE Ur Amphetamines Screen NEGATIVE U Methamphetamin-MDMA POSITIVE H U Benzodiazepines Scrn NEGATIVE Urine Cocaine Screen NEGATIVE U Cannabinoids Screen POSITIVE H Ur Drug Screen Comment Ethyl Alcohol Physical Exam Const alert and oriented x3 Exam Limitations: no limitations HEENT Head and Scalp: normocephalic Resp normal respiratory effort and clear to auscultation bilaterally Cardio regular rate, regular rhythm, S1 normal heart sound and S2 normal heart sound GI normal to inspection, nondistended, normoactive bowel sounds, non-tender and non-distended Extremity normal to inspection Assessment & Plan Assessment/Plan (1) Acute hyponatremia: (2) Alcohol withdrawal: PLAN: 1. acute alcohol withdrawal * subjectively improved * drinking 12+ high-proof beers/day * thiamine, folate, phenobartial taper * pt to follow up with 180 as outpt 2. Hyponatremia * likely due to beer potomania * monitor * check work up if persists 3. Abdominal pain * exam unremarkable * LFTs and lipase WNL * able to eat * no additional work up at this time 4. VTE prophylaxis: low risk and not indicated. Visit Charges Inpatient E&M: 24760 Subs Hosp L2
--- NOTE | 2020-10-28 16:35 | CHAPLAIN ---
Type of Pastoral Visit _x__ Initial Visit ___ Follow-up Visit ___ On-call Visit ___ General Patient Visit ___ Spiritual Assessment ___ Family Conference ___ Bereavement ___ Rapid Response ___ Code Blue ___ Other (describe below) Pastoral Care Referral From _x__ Patient ___ Family ___ Nurse ___ Physician ___ Inspector Canned Food Reconditioning ___ Psychiatric Secretary ___ Other (describe below) Sacrament/Intervention _x__ Active listening ___ Anointing ___ Church ___ Bereavement ___ Communion ___ Celestina exploration ___ ___ Life review _x__ Prayer ___ Reconciliation ___ Sacrament of Sick _x__ Supportive presence ___ Wedding ___ Other (describe below) Pastoral Comments
[2020-10-28] MEDS: Albuterol 2.5 MG/3 ML VIAL.NEB. INHALATION (19:14)
[2020-10-28] MEDS: MELATONIN 10 MG TABLET 5 MG PO (21:48)
[2020-10-28] MEDS: Famotidine 20 MG Tablet PO (21:49)
[2020-10-28] MEDS: Atorvastatin Calcium 40 MG Tablet PO (21:49)
[2020-10-29] VITALS (10 sets, daily range): BP systolic 122–155; BP diastolic 69–110; PULSE 66–86; RESP 16–24; TEMP 36.4–36.8; O2SAT 91–100
[2020-10-29] MEDS: Phenobarbital 32.4 MG Tablet 64.8 MG PO ×6 (02:01→22:15)
[2020-10-29] MEDS: 0.9% Normal Saline 1,000 ML 150 ML IV (04:48)
[2020-10-29] MEDS: Levothyroxine 25 MCG TABLET PO (06:13)
[2020-10-29 07:08] LABS: ALB/GLOB Ratio 0.9 RATIO (0.9-2.4); AST(SGOT) 24 U/L (15-37); Alanine Aminotransfer ALT/SGPT 28 U/L (13-56); Albumin, Serum 3.1 g/dL (3.2-5.0); Alkaline Phosphatase 64 U/L (45-117); Anion Gap 7 (5-15); BUN 10 mg/dL (7-18); BUN/Creat Ratio 19.6 RATIO (10-20); Calcium,Total 8.5 mg/dL (8.5-10.1); Chloride 101 mmol/L (98-107); Creatinine, Serum 0.51 mg/dL (0.55-1.02); EST Glomerular Filtration Rate 134 mL/min (>60); Est Glom Filt Rate - Afr Amer 163 mL/min (>60); Estimated Creatinine Clearance 130.17 ml/min; Globulin 3.4 g/dL (2.2-4.2); Glucose 88 mg/dL (74-106); Protein, Total 6.5 g/dL (6.4-8.2); Sodium Level 135 mmol/L (136-145)
[2020-10-29] MEDS: Ipratropium 0.5 MG/2.5 ML SOLUTION INHALATION ×3 (07:20→19:45)
[2020-10-29] MEDS: Acetaminophen 325 MG Tablet 650 MG PO ×2 (08:20→15:01)
[2020-10-29] MEDS: Thiamine Hydrochloride 100 MG Tablet PO (08:22)
[2020-10-29] MEDS: Ferrous Sulfate 325 MG Tablet PO ×2 (08:22→14:56)
[2020-10-29] MEDS: Folic Acid 1 MG Tablet PO (08:22)
[2020-10-29] MEDS: Furosemide 40 MG Tablet PO (10:07)
[2020-10-29] MEDS: Enoxaparin 40 MG/0.4 ML Syringe SC (10:07)
[2020-10-29] MEDS: Potassium Chloride Oral Tablet 10 MEQ PO (10:07)
[2020-10-29] MEDS: FLUoxetine 20 MG Capsule 60 MG PO (10:08)
[2020-10-29] MEDS: Pantoprazole Sodium 40 MG Tablet PO (10:08)
[2020-10-29] MEDS: Lisinopril 20 MG Tablet PO (10:09)
[2020-10-29] MEDS: Diclofenac 75 MG Tablet PO ×2 (10:09→22:15)
[2020-10-29] MEDS: Cholecalciferol (VIT D3) 25 MCG TABLET (1,000 UNITS) 125 MCG PO (10:09)
--- NOTE | 2020-10-29 14:58 | PN.HOSP_ITS ---
Subjective Subjective Feeling better. No further abdominal pain. Objective Data Objective Data Vital Signs: Vital Signs Temp Pulse Resp BP Pulse Ox 36.7 C 86 16 134/69 H 95 10/29/20 10:00 10/29/20 13:38 10/29/20 13:38 10/29/20 10:00 10/29/20 10:00 Oxygen Flow Rate (L/min) 2 Oxygen Delivery Method Room Air Weight: 70.8 kg Body Mass Index (BMI) 23.7 Intake & Output: Intake and Output for Last 24 Hours 10/27/20 10/28/20 10/29/20 23:59 23:59 23:59 Intake Total 2952.5 / 3102.5 2980 / 2980 Balance 2952.5 / 3102.5 2980 / 2980 Lab / Micro Data Result Diagrams: 10/28/20 03:40 10/29/20 06:02 Labs: Laboratory Results - last 24 hr 10/29/20 06:02 Sodium 135 L Potassium 4.0 Chloride 101 Carbon Dioxide 27.0 Anion Gap 7 BUN 10 Creatinine 0.51 L Estim Creat Clear Calc 130.17 Est GFR (MDRD) Af Amer 163 Est GFR (MDRD) Non-Af 134 BUN/Creatinine Ratio 19.6 Glucose 88 Calcium 8.5 Total Bilirubin 0.40 AST 24 ALT 28 Alkaline Phosphatase 64 Total Protein 6.5 Albumin 3.1 L Globulin 3.4 Albumin/Globulin Ratio 0.9 Physical Exam Const alert Exam Limitations: no limitations HEENT Head and Scalp: normocephalic Eyes PERRL Resp normal respiratory effort and clear to auscultation bilaterally Cardio regular rate, regular rhythm, S1 normal heart sound and S2 normal heart sound GI normal to inspection, nondistended, normoactive bowel sounds, non-tender and non-distended Extremity normal to inspection Assessment & Plan Assessment/Plan (1) Acute hyponatremia: (2) Alcohol withdrawal: QUALIFIERS: Complication of substance-induced condition: uncomplicated Qualified Code(s): F10.230 - Alcohol dependence with withdrawal, uncomplicated PLAN: 1. acute alcohol withdrawal * subjectively improved * drinking 12+ high-proof beers/day * thiamine, folate, phenobartial taper * pt to follow up with 180 as outpt 2. Hyponatremia * likely due to beer potomania * monitor * check work up if persists 3. Abdominal pain * resolved * exam unremarkable * LFTs and lipase WNL * able to eat * no additional work up at this time 4. VTE prophylaxis: low risk and not indicated. Overall improving. Anticipate discharge in 1-2 days. Visit Charges Inpatient E&M: 63440 Subs Hosp L2
[2020-10-29] MEDS: Gabapentin 300 MG Capsule PO (15:01)
[2020-10-29] MEDS: Famotidine 20 MG Tablet PO (22:15)
[2020-10-29] MEDS: Atorvastatin Calcium 40 MG Tablet PO (22:15)
[2020-10-30 02:17] VITALS: BP 117/88; PULSE 91; RESP 18; TEMP 36.6; O2SAT 100
[2020-10-30] MEDS: Phenobarbital 32.4 MG Tablet 64.8 MG PO ×3 (02:22→10:09)
[2020-10-30] MEDS: Levothyroxine 25 MCG TABLET PO (06:29)
[2020-10-30 06:54] VITALS: PULSE 100; RESP 18; O2SAT 97
[2020-10-30] MEDS: Ipratropium 0.5 MG/2.5 ML SOLUTION INHALATION (06:54)
--- NOTE | 2020-10-30 08:59 | ADDICTION ---
This commercial underwriter met with PT to finalize d/c plan. PT A+Ox4 and actively engaged with this commercial underwriter. PT will be picked up at [facility] Main Entrance for transportation and direct admit to [facility]. Transportation to pick her up at 10:30am.
--- NOTE | 2020-10-30 09:24 | PCM.DC ---
Discharge Instructions Diet Discharge Diet: No restrictions Activity Discharge Activity: Return to Normal Activity Follow Up Care Test Results: Test results from this visit will be discussed in further detail at your follow-up appointment, if applicable. Discharge Plan Admission Admit Date/Time: 10/28/20 00:34 Attending Provider: Bam Espinosa Primary Care Provider: Memo Chairez Discharge Orders/Prescriptions Prescriptions: Continued Omeprazole [Prilosec] 40 MG capsule 40 mg PO DAILY RF: 0 lisinopril 20 MG tablet 20 mg PO DAILY RF: 0 famotidine 20 MG tablet 20 mg PO QHS RF: 0 bupropion HCl 150 MG tablet extended release 24 hr 150 mg PO DAILY RF: 0 ferrous sulfate 325 MG tablet 325 mg PO BIDCM RF: 0 furosemide 40 MG tablet 40 mg PO DAILY RF: 0 atorvastatin 40 MG tablet 40 mg PO QHS RF: 0 cholecalciferol (vitamin D3) [Vitamin D3] 1,000 UNIT capsule 5,000 unit PO DAILY RF: 0 fluoxetine 20 MG capsule 60 mg PO DAILY RF: 0 Latuda 60 MG tablet 80 mg PO DAILY RF: 0 levothyroxine 25 MCG tablet 25 mcg PO DAILY RF: 0 albuterol sulfate 2.5 MG/3 ML solution for nebulization 2.5 mg inhalation Q4H PRN PRN (Reason: Sob &/Or Wheezing) RF: 0 potassium chloride 10 MEQ tablet extended release 10 meq PO DAILY RF: 0 diclofenac sodium 75 MG tablet 75 mg PO BID RF: 0 albuterol sulfate 90 mcg/actuation HFA aerosol inhaler 2 puff IH TID PRN (Reason: Sob &/Or Wheezing) RF: 0 melatonin 5 MG tablet 5 mg PO QHS PRN (Reason: Sleep) RF: 0 fluticasone furoate-vilanterol 1 EACH blister with device 1 ea IH DAILY RF: 0 tiotropium bromide 18 MCG capsule, w/inhalation device 18 mcg IH DAILY RF: 0 Referrals / Follow Up: Memo Chairez MD [Primary Care Provider] - Within 1 Month Disposition Disposition (needs filled in before D/C Order can be placed): Home, self care
--- NOTE | 2020-10-30 09:27 | PCM.DC.SUM ---
Providers Date of Admission: 10/28/20 Primary Care Physician: Dr. Memo Chairez MD Reason For Visit: ALCOHOL DETOX Diagnosis Discharge Diagnosis (1) Acute hyponatremia: Status: Acute Code(s): E87.1 - Hypo-osmolality and hyponatremia (2) Alcohol withdrawal: Status: Acute Code(s): F10.239 - Alcohol dependence with withdrawal, unspecified Qualifiers: Complication of substance-induced condition: uncomplicated Qualified Code(s): F10.230 - Alcohol dependence with withdrawal, uncomplicated Medications at Discharge Home Medications Omeprazole [Prilosec] 40 mg PO DAILY 11/13/15 famotidine 20 mg PO QHS 12/18/15 lisinopril 20 mg PO DAILY 12/18/15 bupropion HCl 150 mg PO DAILY 01/29/16 ferrous sulfate 325 mg PO BIDCM 03/04/16 atorvastatin 40 mg PO QHS 10/05/16 cholecalciferol (vitamin D3) [Vitamin D3] 5,000 unit PO DAILY 10/05/16 furosemide 40 mg PO DAILY 10/05/16 Latuda 80 mg PO DAILY 12/16/16 fluoxetine 60 mg PO DAILY 12/16/16 levothyroxine 25 mcg PO DAILY 02/28/17 albuterol sulfate 2 puff IH TID PRN 12/07/19 albuterol sulfate 2.5 mg INHALATION Q4H PRN PRN 12/07/19 diclofenac sodium 75 mg PO BID 12/07/19 fluticasone furoate-vilanterol 1 ea IH DAILY 12/07/19 melatonin 5 mg PO QHS PRN 12/07/19 potassium chloride 10 meq PO DAILY 12/07/19 tiotropium bromide 18 mcg IH DAILY 05/10/20 multivitamin 1 tab PO DAILY #1 tab 10/30/20 Hospital Course Operations None Procedures None Summary of Care Provided Minutes Spent on Discharge: 26 Hospital Course: 48-year-old female presents seeking acute alcohol withdrawal Patient initially did present with some abdominal pain but her work-up was unremarkable. Patient's abdominal pain did resolve.. Patient was started on phenobarbital plus other agents to help with other somatic complaints. Patient will be discharged today and will enroll into the Patient did well during the course of her hospitalization.. 180 residential program. Physical Exam Const alert General Appearance: cooperative and comfortable Neuro Sensorium / Orientation: awake and alert Psych affect normal ABG / Lab / Microbiology Data Result Diagrams: 10/28/20 03:40 10/29/20 06:02 D/C Instructions Discharge Diet: No restrictions Discharge Activity: Return to Normal Activity Meaningful Use Info Meaningful Use Diagnoses (Choose all that apply): None applicable Discharge Plan Admission Admit Date/Time: 10/28/20 00:34 Attending Provider: Bam Espinosa Primary Care Provider: Memo Chairez Discharge Orders/Prescriptions Prescriptions: New multivitamin Tablet 1 tab PO DAILY Qty: 1 RF: 0 Continued Omeprazole [Prilosec] 40 MG capsule 40 mg PO DAILY RF: 0 lisinopril 20 MG tablet 20 mg PO DAILY RF: 0 famotidine 20 MG tablet 20 mg PO QHS RF: 0 bupropion HCl 150 MG tablet extended release 24 hr 150 mg PO DAILY RF: 0 ferrous sulfate 325 MG tablet 325 mg PO BIDCM RF: 0 furosemide 40 MG tablet 40 mg PO DAILY RF: 0 atorvastatin 40 MG tablet 40 mg PO QHS RF: 0 cholecalciferol (vitamin D3) [Vitamin D3] 1,000 UNIT capsule 5,000 unit PO DAILY RF: 0 fluoxetine 20 MG capsule 60 mg PO DAILY RF: 0 Latuda 60 MG tablet 80 mg PO DAILY RF: 0 levothyroxine 25 MCG tablet 25 mcg PO DAILY RF: 0 albuterol sulfate 2.5 MG/3 ML solution for nebulization 2.5 mg inhalation Q4H PRN PRN (Reason: Sob &/Or Wheezing) RF: 0 potassium chloride 10 MEQ tablet extended release 10 meq PO DAILY RF: 0 diclofenac sodium 75 MG tablet 75 mg PO BID RF: 0 albuterol sulfate 90 mcg/actuation HFA aerosol inhaler 2 puff IH TID PRN (Reason: Sob &/Or Wheezing) RF: 0 melatonin 5 MG tablet 5 mg PO QHS PRN (Reason: Sleep) RF: 0 fluticasone furoate-vilanterol 1 EACH blister with device 1 ea IH DAILY RF: 0 tiotropium bromide 18 MCG capsule, w/inhalation device 18 mcg IH DAILY RF: 0 Referrals / Follow Up: Memo Chairez MD [Primary Care Provider] - Within 1 Month Disposition Disposition (needs filled in before D/C Order can be placed): Home, self care Visit Charges Inpatient E&M: 27411 Disch Hosp
[2020-10-30 10:00] VITALS: BP 147/88; PULSE 80; RESP 18; TEMP 36.7; O2SAT 98
[2020-10-30] MEDS: Ferrous Sulfate 325 MG Tablet PO (10:05)
[2020-10-30] MEDS: Thiamine Hydrochloride 100 MG Tablet PO (10:06)
[2020-10-30] MEDS: FLUoxetine 20 MG Capsule 60 MG PO (10:06)
[2020-10-30] MEDS: Furosemide 40 MG Tablet PO (10:07)
[2020-10-30] MEDS: Potassium Chloride Oral Tablet 10 MEQ PO (10:07)
[2020-10-30] MEDS: Pantoprazole Sodium 40 MG Tablet PO (10:08)
[2020-10-30] MEDS: Cholecalciferol (VIT D3) 25 MCG TABLET (1,000 UNITS) 125 MCG PO (10:08)
[2020-10-30] MEDS: Folic Acid 1 MG Tablet PO (10:08)
[2020-10-30] MEDS: Lisinopril 20 MG Tablet PO (10:09)
[2020-10-30] MEDS: Diclofenac 75 MG Tablet PO (10:09)
== END 2020-10-30 10:28 | disposition home or self-care (01) | DRG 775 ==
LOC: ED 10-28 00:17 → ICU 10-28 04:47 → MS3 10-28 17:59
PROVIDERS: Nurse Practitioner Family; Admitting Provider Family Medicine; Emergency Provider Emergency Medicine; PCP Family Medicine
DX: F10.230 Alcohol dependence with withdrawal, uncomplicated (principal); E87.1 Hypo-osmolality and hyponatremia; F12.20 Cannabis dependence, uncomplicated; I10 Essential (primary) hypertension; E78.5 Hyperlipidemia, unspecified; E03.9 Hypothyroidism, unspecified; K21.9 Gastro-esophageal reflux disease without esophagitis; J44.9 Chronic obstructive pulmonary disease, unspecified; E43 Unspecified severe protein-calorie malnutrition; F32.9 Major depressive disorder, single episode, unspecified; F41.9 Anxiety disorder, unspecified; F17.200 Nicotine dependence, unspecified, uncomplicated; Y90.9 Presence of alcohol in blood, level not specified; F43.10 Post-traumatic stress disorder, unspecified; Z68.23 Body mass index [BMI] 23.0-23.9, adult; Z79.899 Other long term (current) drug therapy; Z79.890 Hormone replacement therapy; Z90.49 Acquired absence of other specified parts of digestive tract; Z90.710 Acquired absence of both cervix and uterus
CPT/HCPCS: 36415; 80053; 80307; 81001; 82077; 82140; 83690; 85025; 94640; 97802; 99284; J7030; A4216

== ENCOUNTER 2021-01-23 15:08 | Emergency (ER) | payer MEDICAID, SELFPAY ==
[2020-10-28 09:40] VITALS: BMI 23.7
[2021-01-23 15:11] VITALS: BP 103/81; PULSE 95; RESP 18; TEMP 37.1; O2SAT 98; BMI 24.3
--- NOTE | 2021-01-23 15:35 | EKG12_ITS ---
Test Reason : Blood Pressure : / mmHG Vent. Rate : 092 BPM Atrial Rate : 092 BPM P-R Int : 164 ms QRS Dur : 110 ms QT Int : 406 ms P-R-T Axes : 067 059 049 degrees QTc Int : 502 ms Normal sinus rhythm Prolonged QT Anterior VA, age undetermined, cannot be excluded Inferior VA, age undetermined, cannot be excluded Abnormal ECG Confirmed by CAIT BLACKWELL, MATTHEW ([id number]), editor in chief DOYLE BAZZI ([id number]) on 01/27/2021 8:59:18 AM Referred By: JUDSON Confirmed By:MATTHEW CHAVIRA MD
--- NOTE | 2021-01-23 15:36 | EX.ED.DYSGE1 ---
HPI History of Present Illness Chief Complaint: Hypotension Informant: patient Onset/Context/Timing Onset: Days (3 or so) Context: Gradual Onset Timing: Intermittent and Lasts (minutes, until she sits or lies down) Quality: lightheadedness, near-syncope Current Severity: Gone Maximum Severity: Moderate Worsened by: standing Relieved by: sitting or lying down Associated Symptoms Associated Symptoms: none Narrative Narrative: Patient describes orthostatic symptoms for the last 3 or so days. She had a routine appointment at the dentist today and when she was in the office they checked her blood pressure before doing any other evaluations or treatments, and her blood pressure was in the 80s so she went home and called EMS, her blood pressure was low standing and normal sitting. She states that she has been drinking plenty of fluids and walks around with a jug of iced tea all day. She denies having urinary frequency as a result of drinking all of this caffeine. She denies any chest discomfort, palpitations, dyspnea, leg pain or swelling, headaches. No recent illness. She takes blood pressure medication lisinopril 20 mg, it has not been changed lately and she denies taking any other medications for her blood pressure. [facility] Medical History Acute cholecystitis Acute hyponatremia Acute pancreatitis Alcohol abuse Alcohol withdrawal Anemia of unknown etiology Anxiety COPD (chronic obstructive pulmonary disease) Depression Elevated LFTs Hyperglycemia Hypothyroidism Pulmonary embolism Pulmonary embolism Sleep apnea Home Medications Omeprazole [Prilosec] 40 mg PO DAILY 11/13/15 [History Last Taken 08/12/20] famotidine 20 mg PO QHS 12/18/15 [History Last Taken 08/11/20] bupropion HCl 150 mg PO DAILY 01/29/16 [History Last Taken 08/12/20] ferrous sulfate 325 mg PO BIDCM 03/04/16 [History Last Taken 08/12/20] atorvastatin 40 mg PO QHS 10/05/16 [History Last Taken 08/11/20] cholecalciferol (vitamin D3) [Vitamin D3] 5,000 unit PO DAILY 10/05/16 [History Last Taken 08/12/20] furosemide 40 mg PO DAILY 10/05/16 [History Last Taken 08/12/20] Latuda 80 mg PO DAILY 12/16/16 [History Last Taken 08/12/20] fluoxetine 60 mg PO DAILY 12/16/16 [History Last Taken 08/12/20] levothyroxine 25 mcg PO DAILY 02/28/17 [History Last Taken 08/12/20] albuterol sulfate 2 puff IH TID PRN 12/07/19 [History Last Taken 08/12/20] albuterol sulfate 2.5 mg INHALATION Q4H PRN PRN 12/07/19 [History Last Taken 08/12/20] diclofenac sodium 75 mg PO BID 12/07/19 [History Last Taken 08/12/20] fluticasone furoate-vilanterol 1 ea IH DAILY 12/07/19 [History Last Taken 08/12/20] melatonin 5 mg PO QHS PRN 12/07/19 [History Last Taken 08/12/20] potassium chloride 10 meq PO DAILY 12/07/19 [History Last Taken 08/12/20] tiotropium bromide 18 mcg IH DAILY 05/10/20 [History Last Taken 08/12/20] multivitamin 1 tab PO DAILY #1 tab 10/30/20 [Rx Last Taken Unknown] Allergy/AdvReac Type Severity Reaction Status Date / Time fentanyl AdvReac Anaphylaxis Verified 01/23/21 15:13 [email or web address] [From Chantix] AdvReac hallucinati Verified 01/23/21 15:13 ons Surgical History H/O skin graft H/O: hysterectomy Hx of cholecystectomy Hx of tonsillectomy Social History Smoking Status: Current every day smoker tobacco type: cigarettes alcohol intake: current alcohol intake frequency: 3 or more drinks per day Alcohol type: beer substance use type: marijuana ROS ROS ED Constitutional Constitutional ED: Reports as per HPI and other Details: Lightheaded with standing ; Denies chills or fever(s) Eyes Eyes: Denies change in vision or diplopia ENT ENT ED: Denies rhinorrhea or sore throat Cardiovascular Cardiovascular: Denies chest pain or palpitations Respiratory/Chest Respiratory/Chest: Denies cough or dyspnea Gastrointestinal Gastrointestinal: Denies abdominal pain, diarrhea, nausea or vomiting Genitourinary Genitourinary ED: Denies dysuria or hematuria Musculoskeletal Musculoskeletal: Denies back pain or neck pain Integumentary Denies abscess or rash Neurologic Neurologic: Denies headache(s), paresthesias or weakness Psychiatric Psychiatric: Denies anxiety or suicidal thoughts EXAM Physical Exam Const Vital Signs: 01/23/21 15:11 01/23/21 15:13 Temperature 98.7 F Temperature Source Oral Pulse Rate 95 Respiratory Rate 18 Respiratory Effort Normal Non-Labored Blood Pressure 103/81 H Blood Pressure Mean 88 Pulse Ox 98 Oxygen Delivery Method Room Air Positive well nourished and well developed General Appearance ED: well developed and NAD HEENT Reports moist mucous membranes normocephalic and atraumatic Eyes PERRL and EOMs intact bilaterally Neck full ROM and supple Resp normal respiratory effort and clear to auscultation bilaterally Cardio regular rate, regular rhythm and no murmurs Rate: Negative for tachycardic GI non-tender and non-distended Auscultation: normoactive bowel sounds Palpation: soft Back/Spine no CVA tenderness General Back: other FROM Extremity normal to inspection and no calf tenderness General Extremety ED: Negative for edema, pulses abnormal or tenderness General Extremity: Negative for edema or pulses abnormal Neuro oriented x3, CN's II-XII intact bilaterally and no sensory deficits noted Sensorium / Orientation: awake and alert Motor Exam: strength 5/5 throughout Skin no rashes or lesions noted and no wounds MDM MDM MDM Narrative Medical decision making narrative: Labs were obtained, other than hypokalemia her labs are normal. She has no anemia or renal failure, but she is a little prerenal compared with prior measurements suggesting mild dehydration, in her case overdiuresis due to significant caffeine use. We discussed that. We also confirmed that she was orthostatic here in the emergency department, the nurses got her up out of bed to use the restroom and she became lightheaded and her blood pressure went down to 77. When she is not up out of bed, her blood pressure was 103/81. She was given a liter of IV fluids. Will reevaluate afterwards, and give her more fluids if she needs them to not be orthostatic and then hopefully discharge home, temporarily discontinuing her lisinopril. Lab Data Attestation: I reviewed the patient's lab results. Labs: Laboratory Results - last 24 hr 01/23/21 01/23/21 15:56 15:56 WBC 9.0 RBC 4.43 Hgb 13.6 Hct 40.3 MCV 91.0 MCH 30.7 MCHC 33.7 RDW Std Deviation 41.1 RDW Coeff of Sandeep 12.3 Plt Count 362 MPV 10.5 Immature Gran % (Auto) 0.600 Neut % (Auto) 60.0 Lymph % (Auto) 24.8 [place] % (Auto) 10.3 H Eos % (Auto) 3.6 Baso % (Auto) 0.7 Absolute Neuts (auto) 5.4 Absolute Lymphs (auto) 2.23 Nucleated RBC % 0 Sodium 133 L Potassium 3.0 L Chloride 97 L Carbon Dioxide 29.0 Anion Gap 7 BUN 18 Creatinine 1.00 Estim Creat Clear Calc 64.00 Est GFR (MDRD) Af Amer 75 Est GFR (MDRD) Non-Af 62 BUN/Creatinine Ratio 18.1 Glucose 99 Calcium 8.9 Troponin I High Sens 10.0 EKG Initial EKG: Attestation: I personally reviewed and interpreted this EKG as follows: Interpretation: Sinus Rhythm and No Acute Injury Pattern Discharge Plan Triage Chief Complaint: Hypotension ED Provider: German Colon Dx/Rx/DC Orders Clinical Impression: Orthostatic hypotension, Hypokalemia Instructions: ED Hypotension, Orthostatic Prescriptions: Continued Omeprazole [Prilosec] 40 MG capsule 40 mg PO DAILY RF: 0 famotidine 20 MG tablet 20 mg PO QHS RF: 0 bupropion HCl 150 MG tablet extended release 24 hr 150 mg PO DAILY RF: 0 ferrous sulfate 325 MG tablet 325 mg PO BIDCM RF: 0 furosemide 40 MG tablet 40 mg PO DAILY RF: 0 atorvastatin 40 MG tablet 40 mg PO QHS RF: 0 cholecalciferol (vitamin D3) [Vitamin D3] 1,000 UNIT capsule 5,000 unit PO DAILY RF: 0 fluoxetine 20 MG capsule 60 mg PO DAILY RF: 0 Latuda 60 MG tablet 80 mg PO DAILY RF: 0 levothyroxine 25 MCG tablet 25 mcg PO DAILY RF: 0 albuterol sulfate 2.5 MG/3 ML solution for nebulization 2.5 mg inhalation Q4H PRN PRN (Reason: Sob &/Or Wheezing) RF: 0 potassium chloride 10 MEQ tablet extended release 10 meq PO DAILY RF: 0 diclofenac sodium 75 MG tablet 75 mg PO BID RF: 0 albuterol sulfate 90 mcg/actuation HFA aerosol inhaler 2 puff IH TID PRN (Reason: Sob &/Or Wheezing) RF: 0 melatonin 5 MG tablet 5 mg PO QHS PRN (Reason: Sleep) RF: 0 fluticasone furoate-vilanterol 1 EACH blister with device 1 ea IH DAILY RF: 0 tiotropium bromide 18 MCG capsule, w/inhalation device 18 mcg IH DAILY RF: 0 multivitamin Tablet 1 tab PO DAILY Qty: 1 RF: 0 Discontinued lisinopril 20 MG tablet 20 mg PO DAILY RF: 0 Primary Care Provider: Memo Chairez Referrals: Memo Chairez MD [Primary Care Provider] - 3-5 Days Activity Restrictions/Additional Instructions: Drink plenty of fluids but avoid caffeine for now such as iced tea. Disposition Disposition: Home, Self Care
[2021-01-23] MEDS: 0.9% Normal Saline 1,000 ML 999 ML IV (15:55)
[2021-01-23 16:12] LABS: Absolute Lymphocyte Count 2.23 X10^3/uL (0.83-4.51); Absolute Neutrophil Count 5.4 X10^3/uL (2.0-7.7); Basophil# 0.06 X10^3/uL; Basophil% 0.7 % (0-1); Eosinophil# 0.32 X10^3/uL; Eosinophils% 3.6 % (0-5); Hematocrit 40.3 % (37-47); Hemoglobin 13.6 g/dL (12.0-15.0); Lymphocyte # 2.23 X10^3/ul (0.83-4.51); Lymphocyte % 24.8 % (19-41); Mean Corp Hgb Conc 33.7 g/dL (32-36); Mean Corpuscular Hgb 30.7 pg (27.0-32.0); Mean Platelet Vol. 10.5 fl (6.2-12.0); Monocyte# 0.93 X10^3/uL; Monocyte% 10.3 % (0-10); NRBC Flagged by Analyzer 0 % (0-5); Neutrophil # 5.42 X10^3/uL (2.7-7.7); Platelet Count 362 K/mm3 (150-450); RBC Distribution Width CV 12.3 % (11.6-14.6); RBC Distribution Width SD 41.1 fl (35.1-43.9); Red Blood Count 4.43 M/mm3 (4.2-5.4)
[2021-01-23 16:40] LABS: Anion Gap 7 (5-15); BUN 18 mg/dL (7-18); BUN/Creat Ratio 18.1 RATIO (10-20); Calcium,Total 8.9 mg/dL (8.5-10.1); Chloride 97 mmol/L (98-107); EST Glomerular Filtration Rate 62 mL/min (>60); Est Glom Filt Rate - Afr Amer 75 mL/min (>60); Glucose 99 mg/dL (74-106); Sodium Level 133 mmol/L (136-145)
[2021-01-23 17:23] VITALS: BP 106/75; PULSE 98; RESP 16; O2SAT 99
[2021-01-23] MEDS: Potassium Chloride Oral Tablet 20 MEQ 40 MEQ PO (17:36)
[2021-01-23] MEDS: COVID-19 VAC,AD26(JANSSEN)/PF 0.5 ML SYRINGE IM (18:00)
[2021-01-23 18:16] VITALS: BP 116/72; PULSE 71; RESP 18; O2SAT 98
== END 2021-01-23 18:32 | disposition home or self-care (01) ==
PROVIDERS: Emergency Provider Emergency Medicine; PCP Family Medicine
DX: I95.1 Orthostatic hypotension (principal); E87.6 Hypokalemia; F17.210 Nicotine dependence, cigarettes, uncomplicated; D64.9 Anemia, unspecified; E03.9 Hypothyroidism, unspecified; F10.239 Alcohol dependence with withdrawal, unspecified; F32.9 Major depressive disorder, single episode, unspecified; F41.9 Anxiety disorder, unspecified; J44.9 Chronic obstructive pulmonary disease, unspecified
CPT/HCPCS: 80048; 84484; 85025; 91303; 93005; 96360; 99284; J7030; A4216

== ENCOUNTER 2021-04-30 23:36 | Observation (INO) | payer MEDICAID, SELFPAY ==
[2021-04-30 23:38] VITALS: BP 111/73; PULSE 78; RESP 18; TEMP 35.9; O2SAT 98; BMI 23.5
--- NOTE | 2021-04-30 23:48 | EDS_ITS ---
HPI History of Present Illness Chief Complaint: Substance Abuse Informant: patient Narrative Narrative: Patient is requesting detox from alcohol. She last went through detox back in January. She stayed off alcohol until about a month ago she states. She is now increased her drinking quickly and heavily. She drinks about 15 beers a day. These are 8% high alcohol beers. If she does not drink she gets shaky and nauseated but has not vomited. She states she has never had a seizure. Her last drink was about 1 hour ago may be less. Not suicidal or homicidal. She has no physical complaints. [facility] Medical History Acute cholecystitis Acute hyponatremia Acute pancreatitis Alcohol abuse Alcohol withdrawal Anemia of unknown etiology Anxiety COPD (chronic obstructive pulmonary disease) Depression Elevated LFTs Hyperglycemia Hypothyroidism Pulmonary embolism Pulmonary embolism Sleep apnea Home Medications Breo Ellipta 1 inh INHALATION DAILY 04/30/21 [History Last Taken 04/30/21] Latuda 80 mg PO DAILY 04/30/21 [History Last Taken Unknown] Spiriva Respimat 2 puff INHALATION DAILY 04/30/21 [History Last Taken 04/29/21] atorvastatin 40 mg PO QHS 04/30/21 [History Last Taken 04/29/21] baclofen 10 mg PO BID 04/30/21 [History Last Taken 04/30/21] bupropion HCl 150 mg PO DAILY 04/30/21 [History Last Taken 04/30/21] famotidine 20 mg PO QHS 04/30/21 [History Last Taken 04/29/21] ferrous sulfate 325 mg PO BID 04/30/21 [History Last Taken 04/30/21] fluoxetine 60 mg PO DAILY 04/30/21 [History Last Taken 04/30/21] furosemide 40 mg PO DAILY 04/30/21 [History Last Taken 04/30/21] levothyroxine 25 mcg PO DAILY 04/30/21 [History Last Taken 04/30/21] lisinopril 20 mg PO DAILY 04/30/21 [History Last Taken 04/30/21] omeprazole 40 mg PO DAILY 04/30/21 [History Last Taken 04/30/21] potassium chloride 10 meq PO DAILY 04/30/21 [History Last Taken 04/30/21] pregabalin 150 mg PO TID 05/03/21 [History Last Taken Unknown] Allergy/AdvReac Type Severity Reaction Status Date / Time fentanyl AdvReac Anaphylaxis Verified 04/30/21 23:40 [email or web address] [From Chantix] AdvReac hallucinati Verified 04/30/21 23:40 ons Family History Other Cancer Surgical History H/O skin graft H/O: hysterectomy Hx of cholecystectomy Hx of tonsillectomy Social History Smoking Status: Current every day smoker tobacco type: cigarettes alcohol intake: current alcohol intake frequency: 3 or more drinks per day Alcohol type: beer substance use type: marijuana ROS ROS ED Constitutional Constitutional ED: Denies chills or fever(s) Eyes Eyes: Denies blurry vision ENT ENT ED: Denies rhinorrhea Cardiovascular Cardiovascular: Denies chest pain Respiratory/Chest Respiratory/Chest: Denies cough or dyspnea Gastrointestinal Gastrointestinal: Denies abdominal pain, diarrhea, melena, nausea or vomiting Genitourinary Genitourinary ED: Denies dysuria Musculoskeletal Musculoskeletal: Denies myalgias Integumentary Denies rash Neurologic Neurologic: Denies headache(s), paresthesias or weakness Psychiatric Psychiatric: Denies suicidal ideation or suicidal thoughts Endocrine Endocrinology: Denies polydipsia or polyuria Allergic/Immunologic Allergic/Immunologic ED: Denies urticaria EXAM Physical Exam Const Vital Signs: 04/30/21 23:38 Temperature 96.6 F L Temperature Source Temporal Pulse Rate 78 Respiratory Rate 18 Blood Pressure 111/73 Blood Pressure Mean 85 Pulse Ox 98 Oxygen Delivery Method Room Air Patient is spontaneously awake when I walk in the room. She is alert and oriented. She is cooperative. Positive well nourished and well developed General Appearance ED: well developed and NAD HEENT Negative for trauma Eyes General Eye ED: Negative for pale conjunctiva or scleral icterus Neck no JVD Resp normal respiratory effort and clear to auscultation bilaterally Resp Narrative: History of COPD but no wheezing now. Auscultation: Negative for wheezes Cardio regular rate, regular rhythm and no murmurs GI normal to inspection, nondistended, normoactive bowel sounds, non-tender and non-distended Palpation: soft Back/Spine no CVA tenderness Extremity normal to inspection General Extremety ED: Negative for edema or tenderness General Extremity: Negative for edema Neuro oriented x3 Sensorium / Orientation: alert Psych mental status grossly normal Attitude: No agitated Mood & Affect: Negative for depressed or tearful Skin no rashes or lesions noted MDM MDM MDM Narrative Medical decision making narrative: Patient will be admitted. Discharge Plan Dx/Rx/DC Orders Clinical Impression: Alcohol dependence, Desire for detoxification Disposition Disposition: Acute Care [facility] Discharge Date/Time: 05/01/21 02:11
[2021-04-30 23:56] LABS: Absolute Lymphocyte Count 3.01 X10^3/uL (0.83-4.51); Basophil# 0.06 X10^3/uL; Basophil% 0.8 % (0-1); Eosinophil# 0.14 X10^3/uL; Eosinophils% 1.8 % (0-5); Hematocrit 39.7 % (37-47); Hemoglobin 13.8 g/dL (12.0-15.0); Lymphocyte # 3.01 X10^3/ul (0.83-4.51); Lymphocyte % 38.2 % (19-41); Mean Corp Hgb Conc 34.8 g/dL (32-36); Mean Corpuscular Hgb 32.3 pg (27.0-32.0); Mean Platelet Vol. 10.2 fl (6.2-12.0); Monocyte# 0.61 X10^3/uL; Monocyte% 7.8 % (0-10); NRBC Flagged by Analyzer 0 % (0-5); Neutrophil # 4.03 X10^3/uL (2.7-7.7); Neutrophil % 51.1 % (47-70); Platelet Count 306 K/mm3 (150-450); RBC Distribution Width CV 12.1 % (11.6-14.6); RBC Distribution Width SD 41.6 fl (35.1-43.9); Red Blood Count 4.27 M/mm3 (4.2-5.4); White Blood Count 7.9 K/mm3 (4.4-11.0)
[2021-05-01] VITALS (10 sets, daily range): BP systolic 109–165; BP diastolic 76–97; PULSE 62–81; RESP 16–18; TEMP 35.9–36.9; O2SAT 91–99; BMI 23.1
--- NOTE | 2021-05-01 00:12 | HP.PCM.HOS_ITS ---
HPI - General General Date of Admission: 05/01/21 Date of Service: 05/01/21 Chief Complaint: Desire for Detoxification HPI Narrative KAMI JARQUIN, is a 51 F with a significant history of depression, anxiety; PTSD; COPD with home oxygen use who presents to the emergency department for alcohol detoxification. Patient states that her first alcohol when she was 7-8. She became a regular alcohol drinker at about age 13. In the past 5 months she has been drinking 15 packs a day of 8% alcohol ([employer]). Last time he drank was about an hour prior to presentation. She does not have any withdrawal symptoms on presentation. Reportedly she was referred by [facility] to [facility] residential treatment center. However she needs detoxification before she can go to a rehab center. Patient reports frustration about multiple attempts to quits. Also, patient reports that home oxygen test equipment was delivered to her for home oxygen test in anticipation of her increasing her oxygen demand from 2 L at night to 3 L at night. Patient is requesting that while remain inpatient she self administer this test. [facility] Medical History Acute cholecystitis Acute hyponatremia Acute pancreatitis Alcohol abuse Alcohol withdrawal Anemia of unknown etiology Anxiety COPD (chronic obstructive pulmonary disease) Depression Elevated LFTs Hyperglycemia Hypothyroidism Pulmonary embolism Pulmonary embolism Sleep apnea Home Medications atorvastatin 40 mg PO QHS 04/30/21 [History Last Taken Unknown] baclofen 10 mg PO BID 04/30/21 [History Last Taken Unknown] bupropion HCl 150 mg PO DAILY 04/30/21 [History Last Taken Unknown] famotidine 20 mg PO QHS 04/30/21 [History Last Taken Unknown] ferrous sulfate 325 mg PO BID 04/30/21 [History Last Taken Unknown] fluoxetine 60 mg PO DAILY 04/30/21 [History Last Taken Unknown] fluticasone furoate-vilanterol [Breo Ellipta] 1 inh INHALATION DAILY 04/30/21 [History Last Taken Unknown] furosemide 40 mg PO DAILY 04/30/21 [History Last Taken Unknown] levothyroxine 25 mcg PO DAILY 04/30/21 [History Last Taken Unknown] lisinopril 20 mg PO DAILY 04/30/21 [History Last Taken Unknown] lurasidone [Latuda] 80 mg PO DAILY 04/30/21 [History Last Taken Unknown] omeprazole 40 mg PO DAILY 04/30/21 [History Last Taken Unknown] potassium chloride 10 meq PO DAILY 04/30/21 [History Last Taken Unknown] tiotropium bromide [Spiriva Respimat] 2 puff INHALATION DAILY 04/30/21 [History Last Taken Unknown] Allergy/AdvReac Type Severity Reaction Status Date / Time fentanyl AdvReac Anaphylaxis Verified 04/30/21 23:40 [email or web address] [From Chantix] AdvReac hallucinati Verified 04/30/21 23:40 ons Family History Other Cancer Surgical History H/O skin graft H/O: hysterectomy Hx of cholecystectomy Hx of tonsillectomy Social History Smoking Status: Current every day smoker tobacco type: cigarettes alcohol intake: current alcohol intake frequency: 3 or more drinks per day Alcohol type: beer substance use type: marijuana ROS ROS Narrative Constitutional: Denies fever, chills, fatigue, anorexia and change in weight Eyes: Denies blurry vision, change in eye color, change in vision, discharge from eye(s), double vision, erythema, eye pain, loss of vision or other HEENT: Denies abnormal hearing, dysphagia, ear pain, epistaxis, headache(s), hearing loss, nasal congestion, nasal discharge, post nasal drip, sinus pressure, sore throat or other Cardiovascular: Denies chest pain or palpitations. Denies dyspnea on exertion, orthopnea and paroxysmal nocturnal dyspnea Respiratory/Chest: Denies cough, excessive phlegm production, shortness of breath with exertion and wheezing Gastrointestinal: Denies abdominal pain, coffee ground emesis, constipation, diarrhea, dyspepsia, hematemesis, hematochezia, loose stools, melena, nausea, vomiting or other Genitourinary: Denies burning urination, difficulty urinating, dysuria, hematuria, nocturia, urinary frequency, urinary hesitancy, urinary incontinence, urinary urgency or other Musculoskeletal: Denies arthralgias, back pain, joint pain, joint stiffness, joint swelling, myalgias, neck pain or other Neurologic: Denies abnormal gait, abnormal speech, confusion, disequilibrium, dizziness, focal weakness, headache(s), numbness, paresthesias, seizure-like activity, seizures, syncope, tingling, tremor(s) or other Psychiatric: Reports depression. Denies anxiety, homicidal ideation, suicidal ideation or other Endocrinology: Denies change in body appearance, cold intolerance, excessive sweating, heat intolerance, polydipsia, polyuria or other Hematologic/Lymphatic: Denies anemia, easy bleeding, easy bruising, lymphadenopathy or other Integumentary: Denies rashes Allergic/Immunologic: Denies rhinitis, hives, eczema, asthma or other Vital Signs Vital Signs Vital Signs: 04/30/21 23:38 Temperature 96.6 F L Temperature Source Temporal Pulse Rate 78 Respiratory Rate 18 Blood Pressure 111/73 Blood Pressure Mean 85 Pulse Ox 98 Oxygen Delivery Method Room Air Weight Weight: 70.1 kg Body Mass Index (BMI) 23.5 Physical Exam Narrative Physical exam: General: Well-nourished, well-developed. Head: Normocephalic, atraumatic, no tenderness Eyes: PERRLA, EOMI ENT, no trauma, moist mucous membranes, no rhinorrhea Neck: Nontender, full range of motion, no spinal tenderness, deformities, step- off CVS: Regular rate and rhythm. S1-S2 present. No murmur, gallop or rub. Respiratory : Rhonchi with wheezes, chest wall nontender. Abdomen: Soft, nontender, nondistended, normal bowel sounds, no masses : Deferred Back: Nontender, no CVA tenderness, no midline spinal tenderness, deformities, step-offs Extremities: Nontender full range of motion, no trauma Skin: Normal color, no trauma, abrasions Neuro: Alert, oriented, cranial nerves II through XII grossly intact. Psychiatry: Normal mood. Normal affect. Results Lab / Micro Data Result Diagrams: 04/30/21 23:58 04/30/21 23:58 Labs: Laboratory Results - last 24 hr 04/30/21 23:58: WBC 7.9, RBC 4.27, Hgb 13.8, Hct 39.7, MCV 93.0, MCH 32.3 H, MCHC 34.8, RDW Std Deviation 41.6, RDW Coeff of Sandeep 12.1, Plt Count 306, MPV 10.2, Immature Gran % (Auto) 0.300, Neut % (Auto) 51.1, Lymph % (Auto) 38.2, [place] % (Auto) 7.8, Eos % (Auto) 1.8, Baso % (Auto) 0.8, Absolute Neuts (auto) 4.0, Absolute Lymphs (auto) 3.01, Nucleated RBC % 0 Assessment & Plan Assessment/Plan (1) Desire for detoxification: (2) Hyponatremia: (3) Tobacco use: (4) PTSD (post-traumatic stress disorder): (5) Anxiety and depression: (6) COPD (chronic obstructive pulmonary disease) with emphysema: QUALIFIERS: Emphysema type: unspecified Qualified Code(s): J43.9 - Emphysema, unspecified PLAN: Alcohol dependence and desire for detoxification Patient be started on phenobarbital and other adjunctive medications: Gabapentin as needed; dicyclomine as needed; Vistaril as needed; Imodium as needed; trazodone as needed; Zofran as needed; scheduled thiamine; and schedule folic a rosalia. Monitor CIWA score Tobacco abuse Counseled Nicotine patch prescribed. Marijuana abuse Counseled Depression;anxiety and posttraumatic stress disorder Continue home medications. COPD with home oxygen use Stable Patient to self administer night continuous pulse oximetry prescribed outpatient. Chronic hyponatremia Stable DVT prophylaxis Low risk Encourage to ambulate Charges/Coding Visit Charges Inpatient E&M: 53995 Init Hosp L2
[2021-05-01 00:15] LABS: International Normalized Ratio 1.1; Prothrombin Time (Protime)PT. 13.4 SECONDS (11.7-14.9)
[2021-05-01 00:26] LABS: ALB/GLOB Ratio 0.7 RATIO (0.9-2.4); AST(SGOT) 43 U/L (15-37); Alanine Aminotransfer ALT/SGPT 50 U/L (13-56); Alkaline Phosphatase 67 U/L (45-117); Anion Gap 10 (5-15); BUN 25 mg/dL (7-18); BUN/Creat Ratio 26.3 RATIO (10-20); Chloride 96 mmol/L (98-107); Creatinine, Serum 0.95 mg/dL (0.55-1.02); EST Glomerular Filtration Rate 66 mL/min (>60); Est Glom Filt Rate - Afr Amer 79 mL/min (>60); Estimated Creatinine Clearance 69.08 ml/min; Globulin 4.5 g/dL (2.2-4.2); Glucose 111 mg/dL (74-106); Potassium 3.7 mmol/L (3.5-5.1); Protein, Total 7.5 g/dL (6.4-8.2); Sodium Level 132 mmol/L (136-145)
[2021-05-01 01:29] LABS: Amphetamine Urine VISTA NEGATIVE (<1000 ng/mL); Barbiturate Urine VISTA NEGATIVE (< 200 ng/mL); Benzodiazepine Urine VISTA NEGATIVE (< 200 ng/mL); Cocaine Urine VISTA NEGATIVE (< 300 ng/mL); Ecstacy Urine VISTA POSITIVE (< 500 ng/mL); Methadone Urine VISTA NEGATIVE (< 300 ng/mL); PCP Urine VISTA NEGATIVE (< 25 ng/mL); THC Urine VISTA POSITIVE (< 50 ng/mL); Vista UDS pH Range 5
--- NOTE | 2021-05-01 02:38 | PCS.PANDOC ---
PANDEMIC DOCUMENTATION INITIATED: Date: 02/02/2021 Time: 1900 Emergency documentation initiated 05/01/21 @ 0220
[2021-05-01] MEDS: Phenobarbital 32.4 MG Tablet PO ×6 (02:48→22:33)
[2021-05-01] MEDS: Levothyroxine 25 MCG TABLET PO (06:03)
[2021-05-01] MEDS: Ipratropium/Albuterol Sulfate 3 ML AMPUL.NEB INHALATION ×2 (07:19→18:48)
[2021-05-01] MEDS: Budesonide Respules 0.5 MG/2 ML AMPUL.NEB. INHALATION ×2 (07:19→18:49)
--- NOTE | 2021-05-01 07:56 | PN.HOSP_ITS ---
Subjective Subjective Follow-up on acute acute alcohol withdrawal: Patient was seen and examined. No acute events. Denies any new complaints. Objective Data Objective Data Vital Signs: Vital Signs Temp Pulse Resp BP Pulse Ox 97.5 F L 66 18 109/76 91 05/01/21 03:15 05/01/21 07:19 05/01/21 07:19 05/01/21 03:15 05/01/21 07:19 Oxygen Delivery Method Room Air Weight: 68.9 kg Body Mass Index (BMI) 23.1 Lab / Micro Data Result Diagrams: 04/30/21 23:58 04/30/21 23:58 Labs: Laboratory Results - last 24 hr 04/30/21 23:58: PT 13.4, INR 1.1 04/30/21 23:58: Sodium 132 L, Potassium 3.7, Chloride 96 L, Carbon Dioxide 26.0, Anion Gap 10, BUN 25 H, Creatinine 0.95, Estim Creat Clear Calc 69.08, Est GFR (MDRD) Af Amer 79, Est GFR (MDRD) Non-Af 66, BUN/Creatinine Ratio 26.3 H, Glucose 111 H, Calcium 8.0 L, Total Bilirubin 0.20, AST 43 H, ALT 50, Alkaline Phosphatase 67, Total Protein 7.5, Albumin 3.0 L, Globulin 4.5 H, Albumin/Globulin Ratio 0.7 L, TSH 2.60 04/30/21 23:58: WBC 7.9, RBC 4.27, Hgb 13.8, Hct 39.7, MCV 93.0, MCH 32.3 H, MCHC 34.8, RDW Std Deviation 41.6, RDW Coeff of Sandeep 12.1, Plt Count 306, MPV 10.2, Immature Gran % (Auto) 0.300, Neut % (Auto) 51.1, Lymph % (Auto) 38.2, [place] % (Auto) 7.8, Eos % (Auto) 1.8, Baso % (Auto) 0.8, Absolute Neuts (auto) 4.0, Absolute Lymphs (auto) 3.01, Nucleated RBC % 0 04/30/21 23:58: Ethyl Alcohol 173.0 05/01/21 01:00: Urine Opiates Screen NEGATIVE, Urine Methadone Screen NEGATIVE, Ur Barbiturates Screen NEGATIVE, Ur Phencyclidine Scrn NEGATIVE, Ur Amphetamines Screen NEGATIVE, U Methamphetamin-MDMA POSITIVE H, U Benzodiazepines Scrn NEGATIVE, Urine Cocaine Screen NEGATIVE, U Cannabinoids Screen POSITIVE H, Ur Drug Screen Comment Physical Exam Narrative Physical exam: General: Alert, Oriented x3, Cooperative, No apparent distress, Well developed HEENT: Atraumatic Oral: Moist Mucosa Neck: Supple Lungs: Clear to auscultation Cardiovascular: HS I+II, regular, no murmurs Abdomen: Bowel Sounds Present, Soft, Non Tender Extremities: No edema Assessment & Plan Assessment/Plan (1) Desire for detoxification: (2) Hyponatremia: (3) Tobacco use: (4) PTSD (post-traumatic stress disorder): (5) Anxiety and depression: (6) COPD (chronic obstructive pulmonary disease) with emphysema: QUALIFIERS: Emphysema type: unspecified Qualified Code(s): J43.9 - Emphysema, unspecified PLAN: 1. Acute alcohol withdrawal, last CIWA score was 3, Continue on phenobarb taper Continue on folic acid, multivitamin, thiamine 2. Nicotine dependence, on replacement 3. Polysubstance use disorder, advised to quit 4. Chronic hyponatremia, sodium remains about the same 5. COPD, chronic hypoxic respiratory failure, continue 2 L of oxygen 6. Anxiety/depression/PTSD, continue home meds Charges/Coding Visit Charges Inpatient E&M: 10040 Subs Hosp L2
--- NOTE | 2021-05-01 08:44 | CASEMGMT ---
Social Work Alethea, Addiction Therapist notified of pt's admission for alcohol detox. Alethea to see pt today. ZAN Ochoa
[2021-05-01] MEDS: Ferrous Sulfate 325 MG Tablet PO ×2 (09:21→18:01)
[2021-05-01] MEDS: Thiamine Hydrochloride 100 MG Tablet PO (09:21)
[2021-05-01] MEDS: Potassium Chloride Oral Tablet 10 MEQ PO (09:21)
[2021-05-01] MEDS: Folic Acid 1 MG Tablet PO (09:21)
[2021-05-01] MEDS: Furosemide 40 MG Tablet PO (09:22)
[2021-05-01] MEDS: Enoxaparin 40 MG/0.4 ML Syringe SC (09:25)
[2021-05-01] MEDS: Baclofen 10 MG Tablet PO ×2 (09:25→22:34)
[2021-05-01] MEDS: buPROPion (SR) 150 MG Tablet.SA PO (09:26)
[2021-05-01] MEDS: FLUoxetine 20 MG Capsule 60 MG PO (09:26)
[2021-05-01] MEDS: Pantoprazole Sodium 40 MG Tablet PO (09:26)
[2021-05-01] MEDS: Lisinopril 20 MG Tablet PO (09:26)
[2021-05-01] MEDS: LURASIDONE HCL 20 MG TABLET 80 MG PO (10:48)
--- NOTE | 2021-05-01 11:10 | ADDICTION ---
This proposal writer met with PT to conduct ASAM, MSE, AUDIT assessments and to plan for d/c. PT A+Ox4 and participated actively. All assessments completed, faxed to [facility] and placed in PT's chart. PT plans to f/u with individual counselor at [facility] for residential treatment and follow-up counseling services. PT did indicate a need for transportation post d/c from [facility]. [facility] will transport.
[2021-05-01] MEDS: hydrOXYzine PAM 25 MG Capsule 50 MG PO (18:25)
[2021-05-01] MEDS: Acetaminophen 325 MG Tablet 650 MG PO (18:38)
[2021-05-01] MEDS: Atorvastatin Calcium 40 MG Tablet PO (22:35)
[2021-05-01] MEDS: Famotidine 20 MG Tablet PO (22:35)
[2021-05-01] MEDS: traZODone 100 MG Tablet PO (23:40)
[2021-05-02] VITALS (7 sets, daily range): BP systolic 100–141; BP diastolic 65–100; PULSE 69–91; RESP 12–18; TEMP 36.3–36.6; O2SAT 96–100
[2021-05-02] MEDS: Phenobarbital 32.4 MG Tablet PO ×6 (03:11→22:29)
[2021-05-02] MEDS: Levothyroxine 25 MCG TABLET PO (06:24)
[2021-05-02] MEDS: Budesonide Respules 0.5 MG/2 ML AMPUL.NEB. INHALATION ×2 (07:08→20:06)
[2021-05-02] MEDS: Ipratropium/Albuterol Sulfate 3 ML AMPUL.NEB INHALATION ×3 (07:08→20:06)
[2021-05-02] MEDS: FLUoxetine 20 MG Capsule 60 MG PO (08:33)
[2021-05-02] MEDS: LURASIDONE HCL 20 MG TABLET 80 MG PO (08:34)
[2021-05-02] MEDS: Lisinopril 20 MG Tablet PO (08:34)
[2021-05-02] MEDS: Pantoprazole Sodium 40 MG Tablet PO (08:35)
[2021-05-02] MEDS: buPROPion (SR) 150 MG Tablet.SA PO (08:35)
[2021-05-02] MEDS: Ferrous Sulfate 325 MG Tablet PO ×2 (08:36→18:13)
[2021-05-02] MEDS: Potassium Chloride Oral Tablet 10 MEQ PO (08:36)
[2021-05-02] MEDS: Enoxaparin 40 MG/0.4 ML Syringe SC (08:37)
[2021-05-02] MEDS: Thiamine Hydrochloride 100 MG Tablet PO (08:37)
[2021-05-02] MEDS: Furosemide 40 MG Tablet PO (08:37)
[2021-05-02] MEDS: Folic Acid 1 MG Tablet PO (08:37)
[2021-05-02] MEDS: Baclofen 10 MG Tablet PO ×2 (08:40→22:29)
--- NOTE | 2021-05-02 09:18 | PCM.PN.HOSP ---
Subjective Subjective Follow-up on acute acute alcohol withdrawal: Patient was seen and examined. No new complaints. No acute event. Objective Data Objective Data Vital Signs: Vital Signs Temp Pulse Resp BP Pulse Ox 97.3 F L 75 15 124/90 H 98 05/02/21 09:00 05/02/21 09:00 05/02/21 09:00 05/02/21 09:00 05/02/21 09:00 Oxygen Delivery Method Room Air Weight: 68.9 kg Body Mass Index (BMI) 23.1 Lab / Micro Data Result Diagrams: 04/30/21 23:58 04/30/21 23:58 Physical Exam Narrative Physical exam: General: Alert, Oriented x3, Cooperative, No apparent distress, Well developed HEENT: Atraumatic Oral: Moist Mucosa Neck: Supple Lungs: Clear to auscultation Cardiovascular: HS I+II, regular, no murmurs Abdomen: Bowel Sounds Present, Soft, Non Tender Extremities: No edema Assessment & Plan Assessment/Plan (1) Desire for detoxification: (2) Hyponatremia: (3) Tobacco use: (4) PTSD (post-traumatic stress disorder): (5) Anxiety and depression: (6) COPD (chronic obstructive pulmonary disease) with emphysema: QUALIFIERS: Emphysema type: unspecified Qualified Code(s): J43.9 - Emphysema, unspecified PLAN: 1. Acute alcohol withdrawal, last CIWA score was 0, Continue on phenobarb taper Continue on folic acid, multivitamin, thiamine 2. Nicotine dependence, on replacement 3. Polysubstance use disorder, advised to quit 4. Chronic hyponatremia, sodium remains about the same 5. COPD, chronic hypoxic respiratory failure, continue 2 L of oxygen 6. Anxiety/depression/PTSD, continue home meds Charges/Coding Visit Charges Inpatient E&M: 32898 Subs Hosp L2
[2021-05-02] MEDS: Acetaminophen 325 MG Tablet 650 MG PO ×3 (09:57→22:36)
[2021-05-02] MEDS: Loperamide 2 MG Capsule PO ×2 (10:01→22:30)
[2021-05-02] MEDS: 0.9% Normal Saline 1,000 ML 100 ML IV (18:42)
[2021-05-02] MEDS: Famotidine 20 MG Tablet PO (22:29)
[2021-05-02] MEDS: Dicyclomine 10 MG Capsule 20 MG PO (22:30)
[2021-05-02] MEDS: Atorvastatin Calcium 40 MG Tablet PO (22:30)
[2021-05-02] MEDS: hydrOXYzine PAM 25 MG Capsule 50 MG PO (22:36)
[2021-05-03] VITALS (7 sets, daily range): BP systolic 106–131; BP diastolic 81–98; PULSE 62–80; RESP 12–18; TEMP 36–37; O2SAT 96–99
[2021-05-03] MEDS: Phenobarbital 32.4 MG Tablet PO ×5 (03:16→23:19)
[2021-05-03] MEDS: Levothyroxine 25 MCG TABLET PO (06:47)
[2021-05-03] MEDS: Ipratropium/Albuterol Sulfate 3 ML AMPUL.NEB INHALATION ×3 (07:11→20:10)
[2021-05-03] MEDS: Budesonide Respules 0.5 MG/2 ML AMPUL.NEB. INHALATION (07:11)
--- NOTE | 2021-05-03 08:08 | NURSING ---
pt requesting to take her am meds after she eats
[2021-05-03 09:01] LABS: Absolute Lymphocyte Count 1.35 X10^3/uL (0.83-4.51); Absolute Neutrophil Count 1.4 X10^3/uL (2.0-7.7); Basophil# 0.03 X10^3/uL; Basophil% 0.9 % (0-1); Eosinophil# 0.16 X10^3/uL; Eosinophils% 4.8 % (0-5); Hematocrit 38.6 % (37-47); Hemoglobin 13.2 g/dL (12.0-15.0); Lymphocyte # 1.35 X10^3/ul (0.83-4.51); Lymphocyte % 40.2 % (19-41); Mean Corp Hgb Conc 34.2 g/dL (32-36); Mean Corpuscular Hgb 32.8 pg (27.0-32.0); Mean Corpuscular Volume 95.8 fL (81-99); Mean Platelet Vol. 10.5 fl (6.2-12.0); Monocyte# 0.39 X10^3/uL; Monocyte% 11.6 % (0-10); NRBC Flagged by Analyzer 0 % (0-5); Neutrophil # 1.43 X10^3/uL (2.7-7.7); Neutrophil % 42.5 % (47-70); Platelet Count 168 K/mm3 (150-450); RBC Distribution Width CV 11.9 % (11.6-14.6); RBC Distribution Width SD 42.5 fl (35.1-43.9); Red Blood Count 4.03 M/mm3 (4.2-5.4); White Blood Count 3.4 K/mm3 (4.4-11.0)
--- NOTE | 2021-05-03 09:48 | PN.HOSP_ITS ---
Subjective Subjective Follow-up on acute acute alcohol withdrawal: Patient was seen and examined. Last night, patient complained of abdominal pain with nausea and vomiting. Denies any fever or chills. She was kept NPO and IV fluids. She feels improved. Objective Data Objective Data Vital Signs: Vital Signs Temp Pulse Resp BP Pulse Ox 97.6 F L 80 18 111/81 H 98 05/03/21 08:19 05/03/21 08:19 05/03/21 08:19 05/03/21 08:19 05/03/21 08:19 Oxygen Flow Rate (L/min) 2 Oxygen Delivery Method Room Air Weight: 68.9 kg Body Mass Index (BMI) 23.1 Intake & Output: Intake and Output for Last 24 Hours 05/01/21 05/02/21 05/03/21 23:59 23:59 23:59 Intake Total 730 / 730 Balance 730 / 730 Lab / Micro Data Result Diagrams: 05/03/21 08:43 04/30/21 23:58 Labs: Laboratory Results - last 24 hr 05/03/21 08:43: WBC 3.4 L, RBC 4.03 L, Hgb 13.2, Hct 38.6, MCV 95.8, MCH 32.8 H, MCHC 34.2, RDW Std Deviation 42.5, RDW Coeff of Sandeep 11.9, Plt Count 168, MPV 10.5, Immature Gran % (Auto) 0.000, Neut % (Auto) 42.5 L, Lymph % (Auto) 40.2, [place] % (Auto) 11.6 H, Eos % (Auto) 4.8, Baso % (Auto) 0.9, Absolute Neuts (auto) 1.4 L, Absolute Lymphs (auto) 1.35, Nucleated RBC % 0 Physical Exam Narrative Physical exam: General: Alert, Oriented x3, Cooperative, No apparent distress, Well developed HEENT: Atraumatic Oral: Moist Mucosa Neck: Supple Lungs: Clear to auscultation Cardiovascular: HS I+II, regular, no murmurs Abdomen: Bowel Sounds Present, Soft, Non Tender, no palpable organs Extremities: No edema Assessment & Plan Assessment/Plan (1) Desire for detoxification: (2) Hyponatremia: (3) Tobacco use: (4) PTSD (post-traumatic stress disorder): (5) Anxiety and depression: (6) COPD (chronic obstructive pulmonary disease) with emphysema: QUALIFIERS: Emphysema type: unspecified Qualified Code(s): J43.9 - Emphysema, unspecified PLAN: 1. Abdominal pain, unclear etiology, improved, now on clear liquid diet Lipase is pending. 2. Acute alcohol withdrawal, improved, continue on phenobarb taper Continue on folic acid, multivitamin, thiamine 3. Nicotine dependence, on replacement 4. Polysubstance use disorder, advised to quit 5. Chronic hyponatremia, sodium remains about the same 6. COPD, chronic hypoxic respiratory failure, continue 2 L of oxygen 7 . Anxiety/depression/PTSD, continue home meds Charges/Coding Visit Charges Inpatient E&M: 91439 Subs Hosp L2
[2021-05-03] MEDS: Ferrous Sulfate 325 MG Tablet PO ×2 (10:09→17:18)
[2021-05-03] MEDS: LURASIDONE HCL 20 MG TABLET 80 MG PO (10:09)
[2021-05-03] MEDS: Thiamine Hydrochloride 100 MG Tablet PO (10:09)
[2021-05-03] MEDS: Folic Acid 1 MG Tablet PO (10:09)
[2021-05-03] MEDS: FLUoxetine 20 MG Capsule 60 MG PO (10:10)
[2021-05-03] MEDS: Pantoprazole Sodium 40 MG Tablet PO (10:10)
[2021-05-03] MEDS: Enoxaparin 40 MG/0.4 ML Syringe SC (10:10)
[2021-05-03] MEDS: Baclofen 10 MG Tablet PO ×2 (10:10→23:19)
[2021-05-03] MEDS: Potassium Chloride Oral Tablet 10 MEQ PO (10:10)
[2021-05-03] MEDS: Lisinopril 20 MG Tablet PO (10:10)
[2021-05-03] MEDS: Furosemide 40 MG Tablet PO (10:11)
[2021-05-03 10:42] LABS: ALB/GLOB Ratio 0.6 RATIO (0.9-2.4); AST(SGOT) 47 U/L (15-37); Alanine Aminotransfer ALT/SGPT 45 U/L (13-56); Albumin, Serum 2.5 g/dL (3.2-5.0); Alkaline Phosphatase 53 U/L (45-117); Anion Gap 3 (5-15); BUN 15 mg/dL (7-18); Calcium,Total 8.4 mg/dL (8.5-10.1); Chloride 106 mmol/L (98-107); Creatinine, Serum 0.58 mg/dL (0.55-1.02); EST Glomerular Filtration Rate 116 mL/min (>60); Est Glom Filt Rate - Afr Amer 140 mL/min (>60); Estimated Creatinine Clearance 113.16 ml/min; Globulin 3.9 g/dL (2.2-4.2); Glucose 85 mg/dL (74-106); Lipase 71 U/L (73-393); Protein, Total 6.4 g/dL (6.4-8.2); Sodium Level 137 mmol/L (136-145)
[2021-05-03] MEDS: buPROPion (SR) 150 MG Tablet.SA PO (17:18)
[2021-05-03] MEDS: Acetaminophen 325 MG Tablet 650 MG PO (19:53)
[2021-05-03] MEDS: Famotidine 20 MG Tablet PO (23:18)
[2021-05-03] MEDS: traZODone 100 MG Tablet PO (23:22)
[2021-05-03] MEDS: Atorvastatin Calcium 40 MG Tablet PO (23:27)
[2021-05-04] MEDS: Levothyroxine 25 MCG TABLET PO (05:30)
[2021-05-04] MEDS: Phenobarbital 32.4 MG Tablet PO ×2 (05:30→12:36)
[2021-05-04 05:45] VITALS: BP 106/77; PULSE 62; RESP 16; TEMP 36.4; O2SAT 98
[2021-05-04] MEDS: Budesonide Respules 0.5 MG/2 ML AMPUL.NEB. INHALATION (07:24)
[2021-05-04] MEDS: Ipratropium/Albuterol Sulfate 3 ML AMPUL.NEB INHALATION (07:24)
[2021-05-04 09:06] VITALS: BP 93/54; PULSE 80; RESP 16; TEMP 36.8; O2SAT 96
[2021-05-04] MEDS: Ferrous Sulfate 325 MG Tablet PO (09:08)
[2021-05-04] MEDS: Folic Acid 1 MG Tablet PO (09:08)
[2021-05-04] MEDS: Thiamine Hydrochloride 100 MG Tablet PO (09:09)
[2021-05-04] MEDS: Pantoprazole Sodium 40 MG Tablet PO (09:09)
[2021-05-04] MEDS: Potassium Chloride Oral Tablet 10 MEQ PO (09:09)
[2021-05-04] MEDS: Baclofen 10 MG Tablet PO (09:09)
[2021-05-04] MEDS: LURASIDONE HCL 20 MG TABLET 80 MG PO (09:10)
[2021-05-04] MEDS: FLUoxetine 20 MG Capsule 60 MG PO (09:11)
[2021-05-04] MEDS: Furosemide 40 MG Tablet PO (09:12)
--- NOTE | 2021-05-04 10:57 | PCM.DC ---
Discharge Instructions Diet Discharge Diet: No restrictions Activity Discharge Activity: Return to Normal Activity Weight Bearing Status: Full weight bearing Follow Up Care Test Results: Test results from this visit will be discussed in further detail at your follow-up appointment, if applicable. Discharge Plan Admission Admit Date/Time: 05/01/21 00:05 Primary Reason for Your Visit: Alcohol detox Attending Provider: Haris Johnson Primary Care Provider: Memo Chairez Discharge Orders/Prescriptions Prescriptions: Continued furosemide 40 mg Tablet 40 mg PO DAILY RF: 0 atorvastatin 40 mg Tablet 40 mg PO QHS RF: 0 bupropion HCl 150 mg Tablet Sustained-Release 12 Hr 150 mg PO DAILY RF: 0 lisinopril 20 mg Tablet 20 mg PO DAILY RF: 0 potassium chloride 10 mEq Tablet Extended Release 10 meq PO DAILY RF: 0 omeprazole 40 mg Capsule,Delayed Release(Dr/Ec) 40 mg PO DAILY RF: 0 levothyroxine 25 mcg Tablet 25 mcg PO DAILY RF: 0 famotidine 20 mg Tablet 20 mg PO QHS RF: 0 baclofen 10 mg Tablet 10 mg PO BID RF: 0 ferrous sulfate 325 mg (65 mg iron) Tablet 325 mg PO BID RF: 0 Latuda 80 mg Tablet 80 mg PO DAILY RF: 0 fluoxetine 60 mg Tablet 60 mg PO DAILY RF: 0 Spiriva Respimat 2.5 mcg/actuation Mist 2 puff INHALATION DAILY RF: 0 Breo Ellipta 200-25 mcg/dose Blister With Device 1 inh INHALATION DAILY RF: 0 pregabalin 150 mg capsule 150 mg PO TID RF: 0 Referrals / Follow Up: Memo Chairez MD [Primary Care Provider] - Within 1 Month Disposition Disposition (needs filled in before D/C Order can be placed): Home, Self Care
--- NOTE | 2021-05-04 11:06 | PCM.DC.SUM ---
Providers Date of Admission: 05/01/21 Date of Discharge: 05/04/21 Primary Care Physician: Dr. Memo Chairez MD Reason For Visit: DESIRE FOR DETOXIFICATION Diagnosis Discharge Diagnosis (1) Desire for detoxification: Status: Acute (2) Hyponatremia: Status: Acute Code(s): E87.1 - Hypo-osmolality and hyponatremia (3) Tobacco use: Status: Chronic Code(s): Z72.0 - Tobacco use (4) PTSD (post-traumatic stress disorder): Status: Chronic Code(s): F43.10 - Post-traumatic stress disorder, unspecified (5) Anxiety and depression: Status: Chronic Code(s): F41.9 - Anxiety disorder, unspecified; F32.9 - Major depressive disorder, single episode, unspecified (6) COPD (chronic obstructive pulmonary disease) with emphysema: Status: Chronic Code(s): J43.9 - Emphysema, unspecified Qualifiers: Emphysema type: unspecified Qualified Code(s): J43.9 - Emphysema, unspecified Plan: 1. Acute alcohol withdrawal #2 abdominal pain-etiology unclear #3 polysubstance abuse #4 chronic obstructive pulmonary disease #5 chronic hyponatremia Medications at Discharge Home Medications Breo Ellipta 1 inh INHALATION DAILY 04/30/21 Latuda 80 mg PO DAILY 04/30/21 Spiriva Respimat 2 puff INHALATION DAILY 04/30/21 atorvastatin 40 mg PO QHS 04/30/21 baclofen 10 mg PO BID 04/30/21 bupropion HCl 150 mg PO DAILY 04/30/21 famotidine 20 mg PO QHS 04/30/21 ferrous sulfate 325 mg PO BID 04/30/21 fluoxetine 60 mg PO DAILY 04/30/21 furosemide 40 mg PO DAILY 04/30/21 levothyroxine 25 mcg PO DAILY 04/30/21 lisinopril 20 mg PO DAILY 04/30/21 omeprazole 40 mg PO DAILY 04/30/21 potassium chloride 10 meq PO DAILY 04/30/21 pregabalin 150 mg PO TID 05/03/21 Hospital Course Operations None Procedures None Summary of Care Provided Minutes Spent on Discharge: 31 Hospital Course: This 51-year-old white female was seen in the emergency room at [facility] requesting detox services for alcoholism. Patient had previously gone through detox back in January 2021, she stated that she stayed off alcohol until about a month ago. Markable for a blood alcohol level of 173, patient's tox screen was positive for methamphetamines and cannabinoids. CBC was unremarkable. Slightly low sodium of 132, BUN was slightly elevated at 25. Patient was admitted to [place] [id number], orders were entered using the order set for alcohol detox, patient had no major issues such as DTs during her hospital stay. But this was not persistent or severe. She was seen by addiction social media manager while she was in the hospital. On 05/04/2021, patient was seen and examined: On examination she appeared older than her stated age, she does not appear to be in any distress. Vital signs as documented. Skin warm and dry and without overt rashes. Neck without JVD, thyroid appears normal, trachea is midline, neck is supple. Lungs clear, normal air movement was noted. Heart exam notable for regular rhythm, normal sounds and absence of murmurs, rubs or gallops. Abdomen unremarkable and without evidence of organomegaly, masses, or abdominal aortic enlargement, bowel sounds are present in all 4 quadrants, no abdominal tenderness was noted. Extremities nonedematous, no cyanosis was noted, no clubbing was noted. Neuro: Cranial nerves II through XII are grossly intact, no focal motor deficits were noted, sensation to light touch and pinprick is intact, motor exam 5/5 throughout. Psych: Patient is alert and oriented x3, she does not appear anxious or depressed, she does not appear agitated. Patient was discharged home in stable condition on 05/04/2021 Weight / BMI Weight Weight: 68.9 kg Body Mass Index (BMI) 23.1 ABG / Lab / Microbiology Data Result Diagrams: 05/03/21 08:43 05/03/21 08:43 D/C Instructions Discharge Diet: No restrictions Weight Bearing Status: Full weight bearing Meaningful Use Info Meaningful Use Diagnoses (Choose all that apply): None applicable Discharge Plan Admission Admit Date/Time: 05/01/21 00:05 Primary Reason for Your Visit: Alcohol detox Attending Provider: Haris Johnson Primary Care Provider: Memo Chairez Discharge Orders/Prescriptions Prescriptions: Continued furosemide 40 mg Tablet 40 mg PO DAILY RF: 0 atorvastatin 40 mg Tablet 40 mg PO QHS RF: 0 bupropion HCl 150 mg Tablet Sustained-Release 12 Hr 150 mg PO DAILY RF: 0 lisinopril 20 mg Tablet 20 mg PO DAILY RF: 0 potassium chloride 10 mEq Tablet Extended Release 10 meq PO DAILY RF: 0 omeprazole 40 mg Capsule,Delayed Release(Dr/Ec) 40 mg PO DAILY RF: 0 levothyroxine 25 mcg Tablet 25 mcg PO DAILY RF: 0 famotidine 20 mg Tablet 20 mg PO QHS RF: 0 baclofen 10 mg Tablet 10 mg PO BID RF: 0 ferrous sulfate 325 mg (65 mg iron) Tablet 325 mg PO BID RF: 0 Latuda 80 mg Tablet 80 mg PO DAILY RF: 0 fluoxetine 60 mg Tablet 60 mg PO DAILY RF: 0 Spiriva Respimat 2.5 mcg/actuation Mist 2 puff INHALATION DAILY RF: 0 Breo Ellipta 200-25 mcg/dose Blister With Device 1 inh INHALATION DAILY RF: 0 pregabalin 150 mg capsule 150 mg PO TID RF: 0 Referrals / Follow Up: Memo Chairez MD [Primary Care Provider] - Within 1 Month Disposition Disposition (needs filled in before D/C Order can be placed): Home, Self Care Charges/Coding Visit Charges Inpatient E&M: [id number] [facility]
[2021-05-04] MEDS: buPROPion (SR) 150 MG Tablet.SA PO (12:36)
[2021-05-04 13:23] VITALS: BP 118/85; PULSE 79; RESP 18; TEMP 36.7; O2SAT 97
== END 2021-05-04 13:30 | disposition home or self-care (01) | DRG 775 ==
LOC: ED 05-01 00:54 → MS2 05-01 07:22
PROVIDERS: Internal Medicine; Admitting Provider Hospitalist; Emergency Provider Emergency Medicine; PCP Family Medicine; Visit Provider Internal Medicine
DX: F10.239 Alcohol dependence with withdrawal, unspecified (principal); J43.9 Emphysema, unspecified; J96.11 Chronic respiratory failure with hypoxia; Y90.6 Blood alcohol level of 120-199 mg/100 ml; R10.9 Unspecified abdominal pain; E87.1 Hypo-osmolality and hyponatremia; F12.10 Cannabis abuse, uncomplicated; F17.210 Nicotine dependence, cigarettes, uncomplicated; D64.9 Anemia, unspecified; G47.30 Sleep apnea, unspecified; E03.9 Hypothyroidism, unspecified; F41.9 Anxiety disorder, unspecified; F32.A Depression, unspecified; Z99.81 Dependence on supplemental oxygen; F43.10 Post-traumatic stress disorder, unspecified; Z79.890 Hormone replacement therapy; Z79.899 Other long term (current) drug therapy; Z86.711 Personal history of pulmonary embolism
CPT/HCPCS: G0480; 36415; 80053; 80307; 82077; 83690; 84443; 85025; 85610; 94640; 96360; 96361; 96372; 99218; 99284; 99406; J7030; A4216; G0378

== ENCOUNTER 2021-10-12 09:31 | Emergency (ER) | payer MEDICAID, SELFPAY ==
[2021-10-12 09:32] VITALS: BP 150/103; PULSE 81; RESP 14; TEMP 37; O2SAT 97; BMI 27.6
--- NOTE | 2021-10-12 09:41 | EKG12_ITS ---
Test Reason : CP Blood Pressure : / mmHG Vent. Rate : 078 BPM Atrial Rate : 078 BPM P-R Int : 162 ms QRS Dur : 092 ms QT Int : 400 ms P-R-T Axes : 074 062 070 degrees QTc Int : 456 ms Normal sinus rhythm Normal ECG Confirmed by CAIT BLACKWELL, MATTHEW ([id number]), film and video editor DOYLE BAZZI ([id number]) on 10/13/2021 8:27:15 AM Referred By: ESTELA Confirmed By:MATTHEW CHAVIRA MD
--- NOTE | 2021-10-12 09:42 | EDS_ITS ---
HPI History of Present Illness Chief Complaint: Chest Pain Informant: patient and EMS Narrative Narrative: 51-year-old female presenting to the emergency department for the evaluation of chest pain. Patient states that this is been present for 4 days. It is described as sharp and left-sided and has progressively gotten worse. She states that she feels it going into her left arm through the left axilla and into her back. She states that it is worse with overhead movements and certain arm movements as well as a deep breath. The patient notes that her chest is not sore to touch. She denies any rashes. She reports taking aspirin this morning and called the ambulance because it was worse than normal. Patient states that she is a smoker and wheezes all the time. She states that her cough has been worse than normal and difficult to get phlegm up. EMS noted more wheezing this morning and gave a DuoNeb. [facility] Medical History Acute cholecystitis Acute hyponatremia Acute pancreatitis Alcohol abuse Alcohol withdrawal Anemia of unknown etiology Anxiety COPD (chronic obstructive pulmonary disease) Depression Desire for detoxification Elevated LFTs Hyperglycemia Hypothyroidism Pulmonary embolism Pulmonary embolism Sleep apnea Home Medications Latuda 80 mg PO DAILY 04/30/21 [History Last Taken Unknown] Spiriva Respimat 2 puff INHALATION DAILY 04/30/21 [History Last Taken 04/29/21] atorvastatin 40 mg PO QHS 04/30/21 [History Last Taken 04/29/21] baclofen 10 mg PO BID 04/30/21 [History Last Taken 04/30/21] bupropion HCl 150 mg PO DAILY 04/30/21 [History Last Taken 04/30/21] famotidine 20 mg PO QHS 04/30/21 [History Last Taken 04/29/21] ferrous sulfate 325 mg PO BID 04/30/21 [History Last Taken 04/30/21] fluoxetine 60 mg PO DAILY 04/30/21 [History Last Taken 04/30/21] furosemide 40 mg PO DAILY 04/30/21 [History Last Taken 04/30/21] levothyroxine 25 mcg PO DAILY 04/30/21 [History Last Taken 04/30/21] lisinopril 20 mg PO DAILY 04/30/21 [History Last Taken 04/30/21] omeprazole 40 mg PO DAILY 04/30/21 [History Last Taken 04/30/21] potassium chloride 10 meq PO DAILY 04/30/21 [History Last Taken 04/30/21] pregabalin 150 mg PO TID 05/03/21 [History Last Taken Unknown] albuterol sulfate 2.5 mg INHALATION Q6H PRN PRN 10/12/21 [History Last Taken Unknown] albuterol sulfate [Ventolin HFA] 1 puff INHALATION Q4H PRN PRN 10/12/21 [History Last Taken Unknown] budesonide-formoterol [Symbicort] 1 puff INHALATION DAILY 10/12/21 [History Last Taken Unknown] cholecalciferol (vitamin D3) [Vitamin D3] 25 mcg PO DAILY 10/12/21 [History Last Taken Unknown] naproxen 500 mg PO BID #14 tab 10/12/21 [Rx Last Taken Unknown] prednisone 60 mg PO DAILY #15 tablet 10/12/21 [Rx Last Taken Unknown] Allergy/AdvReac Type Severity Reaction Status Date / Time fentanyl AdvReac Anaphylaxis Verified 10/12/21 09:44 [email or web address] [From Chantix] AdvReac hallucinati Verified 10/12/21 09:44 ons Family History Other Cancer Surgical History H/O skin graft H/O: hysterectomy Hx of cholecystectomy Hx of tonsillectomy Social History Smoking Status: Current every day smoker tobacco type: cigarettes alcohol intake: current alcohol intake frequency: 3 or more drinks per day Alcohol type: beer substance use type: marijuana ROS ROS ED Constitutional Constitutional ED: Denies chills, fever(s) or weight loss Eyes Eyes: Denies change in vision or diplopia ENT ENT ED: Denies ear pain, rhinorrhea or sore throat Cardiovascular Cardiovascular: Reports as per HPI and chest pain; Denies orthopnea, palpitations or racing heartbeat Respiratory/Chest Respiratory/Chest: Reports cough and other Details: Wheezing ; Denies dyspnea or orthopnea Gastrointestinal Gastrointestinal: Denies abdominal pain, diarrhea, nausea or vomiting Genitourinary Genitourinary ED: Denies dysuria, hematuria or urinary frequency Musculoskeletal Musculoskeletal: Denies arthralgias or myalgias Integumentary Denies abscess or rash Neurologic Neurologic: Denies headache(s) or weakness Psychiatric Psychiatric: Denies anxiety, depression, suicidal ideation or suicidal thoughts Endocrine Endocrinology: Denies polydipsia, polyphagia or polyuria Allergic/Immunologic Allergic/Immunologic ED: Denies mouth swelling, tongue swelling or urticaria EXAM Physical Exam Const Vital Signs: 10/12/21 09:32 10/12/21 09:44 Temperature 98.6 F Temperature Source Oral Pulse Rate 81 Respiratory Rate 14 Respiratory Effort Normal Non-Labored Blood Pressure 150/103 H Blood Pressure Mean 118 Pulse Ox 97 Oxygen Delivery Method Room Air Positive well nourished and well developed General Appearance ED: well developed HEENT Reports normocephalic, head/scalp atraumatic, TM's clear and moist mucous membranes normocephalic and atraumatic Tympanic Membrane ED: Yes TM's clear Eyes PERRL and EOMs intact bilaterally Neck no lymphadenopathy, supple and no JVD Chest Wall inspection of chest normal Chest: Negative for tenderness Resp normal respiratory effort Auscultation: wheezes expiratory wheezes and throughout Cardio regular rate, regular rhythm and no murmurs GI normal to inspection, nondistended, normoactive bowel sounds and non-tender Palpation: soft Back/Spine no CVA tenderness and normal ROM Extremity normal to inspection General Extremety ED: Negative for edema General Extremity: Negative for edema Neuro oriented x3 and CN's II-XII intact bilaterally Sensorium / Orientation: alert Motor Exam: strength 5/5 throughout Psych mental status grossly normal Mood & Affect: Negative for depressed or tearful Skin no rashes or lesions noted and no wounds Heart Score History: Slightly/Non-Suspicious ECG: Normal Age: >45 - <65 years Risk Factors: >/= 3 Risk Factors or History of CAD Troponin: </= Normal Limit Score: 3 MDM MDM MDM Narrative Medical decision making narrative: CBC and BMP were normal. Troponin is normal. My interpretation of the chest x-ray is no acute process D-dimer is elevated 0.68. Patient does now note that she did have a prior PE in the past as well as pulmonary abscess. CTA of the chest was obtained which does not demonstrate any PE abscess or any significant finding other than emphysema. Patient received a dose of Toradol. At this point the patient's pain is pleuritic in nature but a negative work-up. This could be pleurisy. I do think with her wheezing prior to arrival in department difficulty in getting sputum up and increasing cough that prednisone may be of benefit from both a pain in his symptom allergy standpoint. The patient to follow-up with her doctor return if worsening or concerns Lab Data Attestation: I reviewed the patient's lab results. Labs: Laboratory Results - last 24 hr 10/12/21 10/12/21 10/12/21 09:50 09:50 09:50 WBC 7.9 RBC 4.97 Hgb 15.7 H Hct 45.8 MCV 92.2 MCH 31.6 MCHC 34.3 RDW Std Deviation 40.4 RDW Coeff of Sandeep 11.9 Plt Count 248 MPV 11.5 Immature Gran % (Auto) 0.400 Neut % (Auto) 63.6 Lymph % (Auto) 15.9 L [place] % (Auto) 14.0 H Eos % (Auto) 5.3 H Baso % (Auto) 0.8 Absolute Neuts (auto) 5.0 Absolute Lymphs (auto) 1.25 Nucleated RBC % 0 D-Dimer Quant (PE/DVT) 0.68 H* Sodium 138 Potassium 4.2 Chloride 105 Carbon Dioxide 30.0 Anion Gap 3 L BUN 10 Creatinine 0.73 Estim Creat Clear Calc 93.14 Est GFR (MDRD) Af Amer 107 Est GFR (MDRD) Non-Af 88 BUN/Creatinine Ratio 13.7 Glucose 68 L Calcium 9.3 Troponin I High Sens 10/12/21 09:50 WBC RBC Hgb Hct MCV MCH MCHC RDW Std Deviation RDW Coeff of Sandeep Plt Count MPV Immature Gran % (Auto) Neut % (Auto) Lymph % (Auto) [place] % (Auto) Eos % (Auto) Baso % (Auto) Absolute Neuts (auto) Absolute Lymphs (auto) Nucleated RBC % D-Dimer Quant (PE/DVT) Sodium Potassium Chloride Carbon Dioxide Anion Gap BUN Creatinine Estim Creat Clear Calc Est GFR (MDRD) Af Amer Est GFR (MDRD) Non-Af BUN/Creatinine Ratio Glucose Calcium Troponin I High Sens 4 Radiography Diagnostic Testing: Clinical Impression(s) from Imaging Studies Chest X-Ray 10/12/21 09:55 IMPRESSION: No acute findings. Stable exam since 05/10/2020. Electronically Signed: Lenin Limon, at 10:13 EDT , Chest CTA 10/12/21 11:00 IMPRESSION: 1. No evidence of acute pulmonary embolism. 2. Pulmonary emphysema. Electronically Signed: Roshan Walters MD at 11:30 EDT , EKG Initial EKG: Attestation: I personally reviewed and interpreted this EKG as follows: Comments: Normal sinus rhythm with a ventricular rate of 78 bpm. Compared to EKG dated 23 January 2021 Prior EKG tracings: available for review Prior: Unchanged Discharge Plan Triage Chief Complaint: Chest Pain ED Provider: Bobby Cheng Dx/Rx/DC Orders Clinical Impression: Chest pain, Pleurisy, COPD (chronic obstructive pulmonary disease) Instructions: ED Pleurisy Prescriptions: New prednisone 20 MG tablet 60 mg PO DAILY Qty: 15 RF: 0 naproxen 500 MG tablet 500 mg PO BID Qty: 14 RF: 0 No Action furosemide 40 mg Tablet 40 mg PO DAILY RF: 0 atorvastatin 40 mg Tablet 40 mg PO QHS RF: 0 bupropion HCl 150 mg Tablet Sustained-Release 12 Hr 150 mg PO DAILY RF: 0 lisinopril 20 mg Tablet 20 mg PO DAILY RF: 0 potassium chloride 10 mEq Tablet Extended Release 10 meq PO DAILY RF: 0 omeprazole 40 mg Capsule,Delayed Release(Dr/Ec) 40 mg PO DAILY RF: 0 levothyroxine 25 mcg Tablet 25 mcg PO DAILY RF: 0 famotidine 20 mg Tablet 20 mg PO QHS RF: 0 baclofen 10 mg Tablet 10 mg PO BID RF: 0 ferrous sulfate 325 mg (65 mg iron) Tablet 325 mg PO BID RF: 0 Latuda 80 mg Tablet 80 mg PO DAILY RF: 0 fluoxetine 60 mg Tablet 60 mg PO DAILY RF: 0 Spiriva Respimat 2.5 mcg/actuation Mist 2 puff INHALATION DAILY RF: 0 pregabalin 150 mg capsule 150 mg PO TID RF: 0 cholecalciferol (vitamin D3) [Vitamin D3] 25 mcg (1,000 unit) Capsule 25 mcg PO DAILY RF: 0 albuterol sulfate 2.5 mg /3 mL (0.083 %) solution for nebulization 2.5 mg inhalation Q6H PRN PRN (Reason: Shortness Of Breath Or Wheezing) RF: 0 albuterol sulfate [Ventolin HFA] 90 mcg/actuation HFA aerosol inhaler 1 puff INHALATION Q4H PRN PRN (Reason: Shortness Of Breath Or Wheezing) RF: 0 budesonide-formoterol [Symbicort] 160-4.5 mcg/actuation HFA aerosol inhaler 1 puff INHALATION DAILY RF: 0 Primary Care Provider: Memo Chairez Referrals: Memo Chairez MD [Primary Care Provider] - As Needed Disposition Disposition: Home, Self Care
[2021-10-12 09:55] LABS: Absolute Lymphocyte Count 1.25 X10^3/uL (0.83-4.51); Basophil# 0.06 X10^3/uL; Basophil% 0.8 % (0-1); Eosinophil# 0.42 X10^3/uL; Eosinophils% 5.3 % (0-5); Hematocrit 45.8 % (37-47); Hemoglobin 15.7 g/dL (12.0-15.0); Lymphocyte # 1.25 X10^3/ul (0.83-4.51); Lymphocyte % 15.9 % (19-41); Mean Corp Hgb Conc 34.3 g/dL (32-36); Mean Corpuscular Hgb 31.6 pg (27.0-32.0); Mean Corpuscular Volume 92.2 fL (81-99); Mean Platelet Vol. 11.5 fl (6.2-12.0); NRBC Flagged by Analyzer 0 % (0-5); Neutrophil # 5.01 X10^3/uL (2.7-7.7); Neutrophil % 63.6 % (47-70); Platelet Count 248 K/mm3 (150-450); RBC Distribution Width CV 11.9 % (11.6-14.6); RBC Distribution Width SD 40.4 fl (35.1-43.9); Red Blood Count 4.97 M/mm3 (4.2-5.4); White Blood Count 7.9 K/mm3 (4.4-11.0)
--- NOTE | 2021-10-12 09:55 | RAD_ITS ---
INDICATION: chest pain EXAMINATION/TECHNIQUE: X-RAY - XR Chest 1 View COMPARISON: Chest radiograph from 05/10/2020, 04/01/2020. FINDINGS: LINES/DEVICES: None. Mild streaky bibasilar atelectasis. No focal consolidations, effusions, or sizable pneumothorax. Heart size is stable. No acute findings in the bones or soft tissues. RAD/Chest 1 View (Portable) IMPRESSION: No acute findings. Stable exam since 05/10/2020. Electronically Signed: Lenin Limon, at 10:13 EDT ,
[2021-10-12 10:00] VITALS: BP 124/93; PULSE 77; RESP 17; O2SAT 96
[2021-10-12 10:10] LABS: Anion Gap 3 (5-15); BUN 10 mg/dL (7-18); BUN/Creat Ratio 13.7 RATIO (10-20); Calcium,Total 9.3 mg/dL (8.5-10.1); Chloride 105 mmol/L (98-107); Creatinine, Serum 0.73 mg/dL (0.55-1.02); EST Glomerular Filtration Rate 88 mL/min (>60); Est Glom Filt Rate - Afr Amer 107 mL/min (>60); Estimated Creatinine Clearance 93.14 ml/min; Glucose 68 mg/dL (74-106); Potassium 4.2 mmol/L (3.5-5.1); Sodium Level 138 mmol/L (136-145)
[2021-10-12 10:14] LABS: D-Dimer Quantitative (DVT/PE) 0.68 FEU/ug/m (0.27-0.49)
[2021-10-12] MEDS: Ketorolac 30 MG/ML Syringe IV (10:15)
[2021-10-12 10:19] LABS: Troponin-I HS (w/2H Reflex) 4 pg/mL (3.0-54.0)
[2021-10-12 11:00] VITALS: BP 127/58; PULSE 68; RESP 14; O2SAT 97
--- NOTE | 2021-10-12 11:00 | CT_ITS ---
EXAM: CT ANGIOGRAPHY CHEST WITHOUT AND WITH INTRAVENOUS CONTRAST CLINICAL INDICATION: chest pain elevated d-dimer TECHNIQUE: Helically acquired angiography images were obtained of the chest without and with intravenous contrast. This CT exam was performed using one or more of the following dose reduction techniques: automated exposure control, adjustment of the mA and/or kV according to patient size, and/or use of iterative reconstruction technique. This report was created using [employer] report generation technology. MIP reconstructed images were created and reviewed. CONTRAST: IV 100mL [id number] COMPARISON: December 07, 2019 FINDINGS: PULMONARY ARTERIES: Unremarkable. Normal in caliber. No evidence of pulmonary embolism. AORTA: Unremarkable. Normal in caliber. No evidence of dissection. GREAT VESSELS OF AORTIC ARCH: Unremarkable. Normal in caliber. No evidence of dissection. LUNGS AND PLEURAL SPACES: Diffuse centrilobular pulmonary emphysema again noted. No mass. No pleural effusion or thickening. No pneumothorax. HEART: Unremarkable. Heart size is normal. No pericardial effusion. No signs of right heart strain, ratio of right ventricle to left ventricle measures less than 1. MEDIASTINUM: Unremarkable. No mediastinal or hilar adenopathy. Esophagus is unremarkable. No hiatal hernia. THYROID: Unremarkable. No thyroid lesions. BONES/JOINTS: Unremarkable. No suspicious lytic or blastic abnormality. CT/CTA Chest W/WO Contrast IMPRESSION: 1. No evidence of acute pulmonary embolism. 2. Pulmonary emphysema. Electronically Signed: Roshan Walters MD at 11:30 EDT Reading Location ID and State: [facility] / [place] Tel , Service support ,
[2021-10-12 11:52] LABS: Reflex Troponin-HS? (from REC) Y
== END 2021-10-12 12:07 | disposition home or self-care (01) ==
PROVIDERS: Emergency Provider Emergency Medicine; PCP Family Medicine; Visit Provider Emergency Medicine
DX: R09.1 Pleurisy (principal); J44.9 Chronic obstructive pulmonary disease, unspecified; R07.9 Chest pain, unspecified; Z86.711 Personal history of pulmonary embolism
CPT/HCPCS: 71045; 71275; 80048; 84484; 85025; 85379; 93005; 96374; 99285; J7040; Q9967; A4216

== ENCOUNTER 2021-12-31 23:56 | Emergency (ER) | payer MEDICAID, SELFPAY ==
[2021-12-31 23:57] VITALS: BP 146/106; PULSE 89; RESP 16; TEMP 36.9; O2SAT 98; BMI 28.0
--- NOTE | 2022-01-01 00:06 | EDS_ITS ---
HPI History of Present Illness HPI Narrative: Patient presents with right wrist injury that occurred tonight. Patient states she tripped and fell while watering her plants. Patient landed on her right wrist. Patient states her pain is sharp. Patient states her pain is worse with any movement. Patient states it is better with rest. Patient admits to some tingling in her fingers but denies any weakness. Patient denies any head injury or loss of consciousness. Patient denies any other injuries. Chief Complaint: Upper Extremity Injury Informant: patient Occured/Mechanism Mechanism/Context: Yes fall Onset/Context/Timing Onset: Today Context: Sudden Onset Timing: Continuous Quality of Pain: Sharp Location: Right wrist Worsened by: Movement Relieved by: Rest Associated Symptoms Associated Symptoms: Positive for Parasthesia; Negative for Weakness or Loss of Funtion [facility] Medical History Acute cholecystitis Acute hyponatremia Acute pancreatitis Alcohol abuse Alcohol withdrawal Anemia of unknown etiology Anxiety COPD (chronic obstructive pulmonary disease) Depression Desire for detoxification Elevated LFTs Hyperglycemia Hypothyroidism Pulmonary embolism Pulmonary embolism Sleep apnea Home Medications atorvastatin 40 mg tablet 40 mg PO QHS cholesterol 04/30/21 [History Last Taken 04/29/21] baclofen 10 mg tablet 10 mg PO BID pain 04/30/21 [History Last Taken 04/30/21] bupropion HCl 150 mg tablet,12 hr sustained-release 150 mg PO DAILY depression 04/30/21 [History Last Taken 04/30/21] famotidine 20 mg tablet 20 mg PO QHS gerd 04/30/21 [History Last Taken 04/29/21] ferrous sulfate 325 mg (65 mg iron) tablet 325 mg PO BID supplement 04/30/21 [History Last Taken 04/30/21] fluoxetine 60 mg tablet 60 mg PO DAILY anxiety 04/30/21 [History Last Taken 04/30/21] furosemide 40 mg tablet 40 mg PO DAILY fluid retention 04/30/21 [History Last Taken 04/30/21] levothyroxine 25 mcg tablet 25 mcg PO DAILY hypothyroid 04/30/21 [History Last Taken 04/30/21] lisinopril 20 mg tablet 20 mg PO DAILY BP 04/30/21 [History Last Taken 04/30/21] lurasidone 80 mg tablet (Latuda) 80 mg PO DAILY 04/30/21 [History Last Taken Unknown] omeprazole 40 mg capsule,delayed release 40 mg PO DAILY GERD 04/30/21 [History Last Taken 04/30/21] potassium chloride 10 mEq tablet,extended release 10 meq PO DAILY supplement 04/30/21 [History Last Taken 04/30/21] tiotropium bromide 2.5 mcg/actuation mist for inhalation (Spiriva Respimat) 2 puff inhalation DAILY COPD 04/30/21 [History Last Taken 04/29/21] pregabalin 150 mg capsule 150 mg PO TID pain 05/03/21 [History Last Taken Unknown] albuterol sulfate 2.5 mg/3 mL (0.083 %) solution for nebulization 2.5 mg inhalation Q6H PRN PRN Shortness Of Breath Or Wheezing 10/12/21 [History Last Taken Unknown] albuterol sulfate 90 mcg/actuation aerosol inhaler (Ventolin HFA) 1 puff inhalation Q4H PRN PRN Shortness Of Breath Or Wheezing 10/12/21 [History Last Taken Unknown] budesonide-formoterol HFA 160 mcg-4.5 mcg/actuation aerosol inhaler (Symbicort) 1 puff inhalation DAILY 10/12/21 [History Last Taken Unknown] cholecalciferol (vitamin D3) 25 mcg (1,000 unit) capsule (Vitamin D3) 25 mcg PO DAILY 10/12/21 [History Last Taken Unknown] naproxen 500 mg tablet 500 mg PO BID #14 tabs 10/12/21 [Rx Last Taken Unknown] prednisone 20 mg tablet 60 mg PO DAILY #15 TABLETS 10/12/21 [Rx Last Taken Unknown] hydrocodone-acetaminophen 5-325mg 5mg-325mg 1 tab PO Q6H PRN PRN Pain 3 days #10 TABLETS 01/01/22 [Rx Last Taken Unknown] Allergy/AdvReac Type Severity Reaction Status Date / Time fentanyl AdvReac Anaphylaxis Verified 12/31/21 23:57 varenicline [From Chantix] AdvReac hallucinati Verified 12/31/21 23:57 ons Family History Other Cancer Surgical History H/O skin graft H/O: hysterectomy Hx of cholecystectomy Hx of tonsillectomy Social History (Updated 01/01/22 @ 00:[address] Bam White, DO) Smoking Status: Current every day smoker tobacco type: cigarettes alcohol intake: former substance use type: marijuana ROS ROS ED Constitutional Constitutional ED: Denies chills or fever(s) Eyes Eyes: Denies blurry vision or change in vision ENT ENT ED: Denies rhinorrhea or sore throat Cardiovascular Cardiovascular: Denies chest pain or palpitations Respiratory/Chest Respiratory/Chest: Denies cough or dyspnea Gastrointestinal Gastrointestinal: Denies nausea or vomiting Genitourinary Genitourinary ED: Denies dysuria or hematuria Musculoskeletal Musculoskeletal: Denies back pain or neck pain Integumentary Denies abscess or rash Neurologic Neurologic: Denies headache(s) or weakness Allergic/Immunologic Allergic/Immunologic ED: Denies mouth swelling or urticaria EXAM Physical Exam Const Vital Signs: 12/31/21 23:57 Temperature 98.4 F Temperature Source Oral Pulse Rate 89 Respiratory Rate 16 Blood Pressure 146/106 H Blood Pressure Mean 119 Pulse Ox 98 Oxygen Delivery Method Room Air Positive well nourished and well developed General Appearance ED: well developed and NAD HEENT Reports moist mucous membranes Neck full ROM and supple Extremity Extremity Narrative: There is tenderness and obvious deformity of the right wrist. Range of motion was limited in all motions of the right wrist and right hand secondary to pain. Sensation was intact to light touch in the radial, median, and ulnar areas. Radial pulses are equal bilaterally. Capillary refill was less than 2 seconds in all digits. Neuro oriented x3, CN's II-XII intact bilaterally, moves all extremities, no focal motor deficits and no sensory deficits noted Sensorium / Orientation: alert Motor Exam: strength 5/5 throughout Psych mental status grossly normal MDM MDM MDM Narrative Medical decision making narrative: Patient was given morphine. X-rays of the right wrist were obtained. There are 3 views. On my interpretation, there is comminuted fracture of the distal radius with dorsal angulation of the distal fragments dorsally. There is mild displacement dorsally. There is no ulnar fracture. Radiologist also interpreted the x-rays and agrees. Patient was advised of her findings. Patient was advised of the need for sedation and reduction of the fracture. Patient and was instructed on the risks and benefits of sedation. Patient was given the opportunity ask any further questions. She had no further questions. Patient is agreeable to sedation. Patient signed the consent form. Patient was given 80 mg of propofol initially. Patient was placed in finger traps. Webril gauze padding was applied. Patient was given an additional 60 mg of propofol. The fracture was reduced using traction. Custom made 4 inch Ortho-Glass AP splint was applied. Richard wrap was applied. Patient tolerated the procedure well. Patient returned to baseline level of consciousness. Total time of sedation was 15 minutes. Repeat x-rays were obtained. There are 3 views. On my interpretation, the fracture fragments are aligned in near anatomic position. Radiologist also interpreted the x-rays and agrees. Patient was given a prescription for [facility]. Patient was given referral to Dr. Leonard for orthopedic follow-up. Patient was instructed to ice and elevate the right wrist. Patient understood and was agreeable with the plan. All questions were answered. Procedures Upper Extremity Splints Upper Extremity Splint: Orthoglass and - (Short arm AP splint) Splint Fabrication: Fabricated Location: Right Procedural Sedation 1 (Initial Baseline): Consent Signed: Yes Any Problems With Anesthesia: No You/Your family experience fever (hyperthermia) w/anesthesia: No Sedation medication: Propofol Dose: 140 Route: IV Mallampati Score: Class II ASA Classification: II Discharge Plan Triage Chief Complaint: Upper Extremity Injury ED Provider: Bam White Dx/Rx/DC Orders Clinical Impression: Closed fracture of right distal radius, Tobacco use, COPD (chronic obstructive pulmonary disease) with emphysema Instructions: ED Colles Fracture, Reduction Required Prescriptions: New hydrocodone-acetaminophen [hydrocodone-acetaminophen] 5-325 mg tablet 1 tab PO Q6H PRN PRN (Reason: Pain) 3 Days Qty: 10 0RF No Action furosemide 40 mg Tablet 40 mg PO DAILY atorvastatin 40 mg Tablet 40 mg PO QHS bupropion HCl 150 mg Tablet Sustained-Release 12 Hr 150 mg PO DAILY lisinopril 20 mg Tablet 20 mg PO DAILY potassium chloride 10 mEq Tablet Extended Release 10 meq PO DAILY omeprazole 40 mg Capsule,Delayed Release(Dr/Ec) 40 mg PO DAILY levothyroxine 25 mcg Tablet 25 mcg PO DAILY famotidine 20 mg Tablet 20 mg PO QHS baclofen 10 mg Tablet 10 mg PO BID ferrous sulfate 325 mg (65 mg iron) Tablet 325 mg PO BID Latuda 80 mg Tablet 80 mg PO DAILY fluoxetine 60 mg Tablet 60 mg PO DAILY Spiriva Respimat 2.5 mcg/actuation Mist 2 puff INHALATION DAILY pregabalin 150 mg capsule 150 mg PO TID cholecalciferol (vitamin D3) [Vitamin D3] 25 mcg (1,000 unit) Capsule 25 mcg PO DAILY albuterol sulfate 2.5 mg /3 mL (0.083 %) solution for nebulization 2.5 mg inhalation Q6H PRN PRN (Reason: Shortness Of Breath Or Wheezing) albuterol sulfate [Ventolin HFA] 90 mcg/actuation HFA aerosol inhaler 1 puff INHALATION Q4H PRN PRN (Reason: Shortness Of Breath Or Wheezing) budesonide-formoterol [Symbicort] 160-4.5 mcg/actuation HFA aerosol inhaler 1 puff INHALATION DAILY prednisone 20 MG tablet 60 mg PO DAILY Qty: 15 0RF naproxen 500 MG tablet 500 mg PO BID Qty: 14 0RF Rx Instructions: take with food Primary Care Provider: Memo Chairez Referrals: Abhay Leonard MD [STAFF PHYSICIAN] - 3-5 Days Memo Chairez MD [Primary Care Provider] - 1-2 Weeks Disposition Disposition: Home, Self Care
--- NOTE | 2022-01-01 00:10 | RAD_ITS ---
EXAM: XR RIGHT WRIST COMPLETE, 3 OR MORE VIEWS CLINICAL INDICATION: Injury/Pain TECHNIQUE: Frontal, lateral and oblique views of the right wrist. This report was created using [employer] report generation technology. COMPARISON: None. FINDINGS: BONES/JOINTS: Comminuted intra-articular fracture distal radial metaphysis with dorsal angulation and displacement. Preservation of the joint space. No sclerotic or destructive changes observed. SOFT TISSUES: Unremarkable. No soft tissue swelling or gas. No radiopaque foreign body. RAD/Wrist min 3 Views IMPRESSION: Dorsal Palomares''s fracture. Electronically Signed: Derrick Mccollum MD at 0:31 EDT ,
[2022-01-01] MEDS: Morphine 4 MG/ML Syringe IV ×2 (00:16→00:59)
[2022-01-01 01:16] VITALS: BP 135/101; PULSE 93; RESP 14; TEMP 36.6; O2SAT 97
[2022-01-01] MEDS: Propofol 200 MG/20 ML Vial IV BOLUS (01:17)
[2022-01-01 01:18] VITALS: BP 134/119; BP 136/101; BP 147/101; BP 149/89; PULSE 82; PULSE 87; PULSE 92; RESP 12; RESP 13; RESP 14; O2SAT 95; O2SAT 98; O2SAT 99
[2022-01-01 01:37] VITALS: BP 133/94; PULSE 88; RESP 13; O2SAT 96
--- NOTE | 2022-01-01 01:38 | RAD_ITS ---
EXAM: XR RIGHT WRIST COMPLETE, 3 OR MORE VIEWS CLINICAL INDICATION: post reducation TECHNIQUE: Frontal, lateral and oblique views of the right wrist. This report was created using [facility] report generation technology. COMPARISON: None. FINDINGS: BONES/JOINTS: Comminuted intra-articular distal radial fracture now with normal length and only slight residual dorsal angulation. Preservation of the joint space. No sclerotic or destructive changes observed. SOFT TISSUES: Unremarkable. No soft tissue swelling or gas. No radiopaque foreign body. RAD/Wrist min 3 Views IMPRESSION: Comminuted intra-articular distal radial fracture now with normal length and only slight residual dorsal angulation. Electronically Signed: Derrick Mccollum MD at 2:11 EDT ,
[2022-01-01 01:42] VITALS: BP 141/72; PULSE 88; RESP 12; O2SAT 97
[2022-01-01 01:47] VITALS: BP 127/91; PULSE 91; RESP 14; O2SAT 98
[2022-01-01] MEDS: HYDROcodone Bitartrate/Apap 5/325 Tablet PO (02:19)
[2022-01-01 02:26] VITALS: BP 147/81; O2SAT 99
== END 2022-01-01 02:28 | disposition home or self-care (01) ==
PROVIDERS: Emergency Provider Emergency Medicine; PCP Family Medicine; Visit Provider Emergency Medicine
DX: S52.571A Other intraarticular fracture of lower end of right radius, initial encounter for closed fracture (principal); J43.9 Emphysema, unspecified; F12.90 Cannabis use, unspecified, uncomplicated; S52.353A Displaced comminuted fracture of shaft of radius, unspecified arm, initial encounter for closed fracture; E03.9 Hypothyroidism, unspecified; G47.30 Sleep apnea, unspecified; F41.9 Anxiety disorder, unspecified; F32.A Depression, unspecified; F17.210 Nicotine dependence, cigarettes, uncomplicated; W01.0XXA Fall on same level from slipping, tripping and stumbling without subsequent striking against object, initial encounter
CPT/HCPCS: 29125; 73110; 96374; 96376; 99152; 99285; J7030; A4216

== ENCOUNTER → 2022-01-15 | Outpatient (CLI) | payer MEDICAID, SELFPAY ==
--- NOTE | 2022-01-15 17:12 | CT_ITS ---
EXAM: CT RIGHT UPPER EXTREMITY WITHOUT INTRAVENOUS CONTRAST CLINICAL INDICATION: Evaluate fracture morphology TECHNIQUE: Helically acquired images were obtained of the right upper extremity without intravenous contrast. 2-D reformats were performed by the technologist. This CT exam was performed using one or more of the following dose reduction techniques: automated exposure control, adjustment of the mA and/or kV according to patient size, and/or use of iterative reconstruction technique. This report was created using [employer] report generation technology. COMPARISON: X-ray 01/15/2022, 01/01/2022. FINDINGS: BONES/JOINTS: Subacute, comminuted fracture of the distal radius extending to the articular surface. 4 mm posterior displacement of dominant dorsal fragments. Minimal dorsal angulation of the distal radius. Mild internal callus. No bridging callus. No new fracture. No destructive changes. SOFT TISSUES: No soft tissue swelling or gas. No radiopaque foreign body. Patient is casted in fiberglass. CT/Extremity Upper without Contra IMPRESSION: Comminuted fracture of the distal radius, as described. Electronically Signed: Sruthi Newton MD at 19:14 EDT Reading Location ID and State: [id number] / Tel , Service support ,
== END | disposition home or self-care (01) ==
LOC: CT 17:02
PROVIDERS: PCP Family Medicine; Referring Provider Orthopaedic Surgery Sports Medicine; Visit Provider Orthopaedic Surgery Sports Medicine
DX: S52.501A Unspecified fracture of the lower end of right radius, initial encounter for closed fracture (principal)
CPT/HCPCS: 73200

== ENCOUNTER 2022-01-22 07:44 | Day surgery (SDC) | payer MEDICAID, SELFPAY ==
[2022-01-22] VITALS (7 sets, daily range): BP systolic 100–129; BP diastolic 68–92; PULSE 60–75; RESP 18; TEMP 36.3–36.7; O2SAT 93–99; BMI 26.2
[2022-01-22] MEDS: Lactated Ringers 1,000 ML 15 ML IV (08:15)
[2022-01-22 08:47] LABS: Hematocrit 38.6 % (37-47); Hemoglobin 12.9 g/dL (12.0-15.0); Mean Corp Hgb Conc 33.4 g/dL (32-36); Mean Corpuscular Volume 95.8 fL (81-99); Mean Platelet Vol. 10.3 fl (6.2-12.0); Platelet Count 318 K/mm3 (150-450); RBC Distribution Width CV 12.2 % (11.6-14.6); RBC Distribution Width SD 42.6 fl (35.1-43.9); Red Blood Count 4.03 M/mm3 (4.2-5.4); White Blood Count 8.6 K/mm3 (4.4-11.0)
[2022-01-22 08:58] LABS: Prothrombin Time (Protime)PT. 13.3 SECONDS (11.7-14.9)
[2022-01-22 09:00] LABS: Partial Thromboplast Time 31.5 Seconds (24.1-36.2)
[2022-01-22 09:14] LABS: AST(SGOT) 29 U/L (15-37); Alanine Aminotransfer ALT/SGPT 32 U/L (13-56); Albumin, Serum 3.1 g/dL (3.2-5.0); Alkaline Phosphatase 65 U/L (45-117); Anion Gap 4 (5-15); BUN 9 mg/dL (7-18); BUN/Creat Ratio 14.9 RATIO (10-20); Bilirubin, Direct 0.13 mg/dL (0.00-0.30); Calcium,Total 8.7 mg/dL (8.5-10.1); Chloride 101 mmol/L (98-107); EST Glomerular Filtration Rate 110 mL/min (>60); Est Glom Filt Rate - Afr Amer 133 mL/min (>60); Estimated Creatinine Clearance 113.32 ml/min; Globulin 4.2 g/dL (2.2-4.2); Glucose 98 mg/dL (74-106); Potassium 4.1 mmol/L (3.5-5.1); Protein, Total 7.3 g/dL (6.4-8.2); Sodium Level 136 mmol/L (136-145); Thyroid Stim Hormone (TSH) 0.96 uIU/mL (0.358-3.74)
--- NOTE | 2022-01-22 09:19 | HP.PCM_ITS ---
HPI - General HPI Narrative KAMI JARQUIN, is a 51 F here for ORIF distal radius fracture right. No changes to health. Bloodwork reviewed. No allergies to abx, so 2g ancef. Cast split. Answered her questions. Intake Visit Reasons:?Wrist injury Chief Complaint: alcohol abuse Allergies fentanyl Adverse Reaction (Verified 01/15/22 10:19) Anaphylaxisvarenicline [From Chantix] Adverse Reaction (Verified 01/15/22 10:19) hallucinations Medications atorvastatin 40 mg tablet 40 mg PO QHS cholesterol 04/30/21 [History Confirmed 01/19/22] baclofen 10 mg tablet 10 mg PO BID pain 04/30/21 [History Confirmed 01/19/22] bupropion HCl 150 mg tablet,12 hr sustained-release 150 mg PO DAILY depression 04/30/21 [History Confirmed 01/19/22] famotidine 20 mg tablet 20 mg PO QHS gerd 04/30/21 [History Confirmed 01/19/22] ferrous sulfate 325 mg (65 mg iron) tablet 325 mg PO BID supplement 04/30/21 [History Confirmed 01/19/22] fluoxetine 60 mg tablet 60 mg PO DAILY anxiety 04/30/21 [History Confirmed 01/19/22] furosemide 40 mg tablet 40 mg PO DAILY fluid retention 04/30/21 [History Confirmed 01/19/22] levothyroxine 25 mcg tablet 25 mcg PO DAILY hypothyroid 04/30/21 [History Confirmed 01/19/22] lisinopril 20 mg tablet 20 mg PO DAILY BP 04/30/21 [History Confirmed 01/19/22] lurasidone 80 mg tablet (Latuda) 80 mg PO DAILY 04/30/21 [History Confirmed 01/19/22] omeprazole 40 mg capsule,delayed release 40 mg PO DAILY GERD 04/30/21 [History Confirmed 01/19/22] potassium chloride 10 mEq tablet,extended release 10 meq PO DAILY supplement 04/30/21 [History Confirmed 01/19/22] tiotropium bromide 2.5 mcg/actuation mist for inhalation (Spiriva Respimat) 2 puff inhalation DAILY COPD 04/30/21 [History Confirmed 01/19/22] pregabalin 150 mg capsule 150 mg PO TID pain 05/03/21 [History Confirmed 01/19/22] albuterol sulfate 2.5 mg/3 mL (0.083 %) solution for nebulization 2.5 mg inhalation Q6H PRN PRN Shortness Of Breath Or Wheezing 10/12/21 [History Confirmed 01/19/22] albuterol sulfate 90 mcg/actuation aerosol inhaler (Ventolin HFA) 1 puff inhalation Q4H PRN PRN Shortness Of Breath Or Wheezing 10/12/21 [History Confirmed 01/19/22] budesonide-formoterol HFA 160 mcg-4.5 mcg/actuation aerosol inhaler (Symbicort) 1 puff inhalation DAILY 10/12/21 [History Confirmed 01/19/22] cholecalciferol (vitamin D3) 25 mcg (1,000 unit) capsule (Vitamin D3) 25 mcg PO DAILY 10/12/21 [History Confirmed 01/19/22] prednisone 20 mg tablet 60 mg PO DAILY #15 TABLETS 10/12/21 [Rx Confirmed 01/19/22] hydrocodone-acetaminophen 5-325mg 5mg-325mg 1 tab PO Q6H PRN PRN Pain 3 days #10 TABLETS 01/01/22 [Rx Confirmed 01/19/22] ascorbic acid (vitamin C) 500 mg tablet 500 mg PO DAILY prophylaxis of crps 2 months #60 tabs 01/12/22 [Rx Confirmed 01/19/22] PFSH Medical History? Acute cholecystitis Acute hyponatremia Acute pancreatitis Alcohol abuse Alcohol withdrawal Anemia of unknown etiology Anxiety COPD (chronic obstructive pulmonary disease) Depression Desire for detoxification Elevated LFTs Hyperglycemia Hypothyroidism Pulmonary embolism Pulmonary embolism Sleep apnea Surgical History? H/O skin graft H/O: hysterectomy Hx of cholecystectomy Hx of tonsillectomy Family History? Other Cancer Social History? household members:? none Smoking Status:? Current every day smoker tobacco type: cigarettes alcohol intake:? former substance use type:? marijuana additional social history:? disabled HPI Wrist injury Details: Parts of this documentation were recorded by a scribe, this documentation accurately reflects the service provided and the decisions made by me, Dr. Prasanth Jones MD 01/19/22 0437. KAMI JARQUIN is a 51 year old F here today for? F/U on right wrist fx. DOI: 01/01/22. She is here today to go over the results of her CT scan. Ortho Exam General General: Yes no acute distress Neurologic: Yes alert and Yes oriented x3 Psychologic: Yes reasonable and appropriate Right Wrist/Hand WRIST: The pink fiberglass cast is in place no obvious rubbing or redness.? She is able to wiggle the fingers and the thumb.? Cap refill and perfusion is normal Supplemental Info [facility] [address] [place] [address] Extremity Upper without Contra MR#:? [id number] Acct: [id number] Name:? KAMI JARQUIN GENE Rep #: [id number] :?? 1970 F 51 ? From:? ? Sruthi Newton MD PCP: Dr. Memo Chairez MD ? Status: REG CLI Study: Extremity Upper without Contra ? Date of Exam: 01/15/22 Exam# [id number] ? Ordering Dr:? Prasanth Jones MD EXAM:? CT RIGHT UPPER EXTREMITY WITHOUT INTRAVENOUS CONTRAST CLINICAL INDICATION:? Evaluate fracture morphology TECHNIQUE:? Helically acquired images were obtained of the right upper extremity without intravenous contrast.? 2-D reformats were performed by the technologist.? This CT exam was performed using one or more of the following dose reduction techniques:? automated exposure control, adjustment of the mA and/or kV according to patient size, and/or use of iterative reconstruction technique.? This report was created using [employer] report generation technology. COMPARISON:? X-ray 01/15/2022, 01/01/2022. FINDINGS: BONES/JOINTS:? Subacute, comminuted fracture of the distal radius extending to the articular surface.? 4 mm posterior displacement of dominant dorsal fragments.? Minimal dorsal angulation of the distal radius.? Mild internal callus.? No bridging callus.? No new fracture.? No destructive changes. SOFT TISSUES:? No soft tissue swelling or gas.? No radiopaque foreign body. Patient is casted in fiberglass. CT/Extremity Upper without Contra IMPRESSION: ? Per my own interpretation there does appear to be up to 5 mm of shortening primarily on the radial column as well as 20 degrees of dorsal angulation of the articular surface on the sagittal cuts. Coding Level of Care Code Off vis,est,level 3 Diagnoses Wrist injury? S69.90XA Closed fracture of right distal radius? S52.501A Assessment and Plan Assessment and Plan (1) Wrist injury: (2) Closed fracture of right distal radius: ?Status:?Acute ?Plan: This 51-year-old female with distal radius fracture that appears intra-articular with radiographic parameters that would indicate this for surgical open reduction internal fixation.? Her other option is nonoperative management in a cast.? Cast treatment would have a higher likelihood and complications related to stiffness and malunion pain and other secondary complications.? That being said ORIF has its own set of complications including but not limited to ?infection, pain, stiffness, bleeding, damage to surrounding structures, neurovascular injury, recurrence or retear, failure or wear of hardware or fixation, delayed, mal or nonunion, instability, fracture, deep vein thrombosis and pulmonary embolism, anesthetic risks, patient dissatisfaction, need for further surgery and other risks.? Patient understood and wished to proceed with surgery, and signed the informed consent documentation. She may be at higher risk than normal due to her smoking I encouraged her to quit or cut back.? In addition I spoke to the surgical schedulers the next available best time for the patient and myself would be this Tuesday so we will make every effort to accommodate that for the patient's sake. [facility] Medical History (Updated 01/21/22 @ 08:49 by Nina Carson) Acute cholecystitis Acute hyponatremia Acute pancreatitis Alcohol abuse Alcohol withdrawal Ambulates with cane Anemia Anemia of unknown etiology Anxiety Arthritis Chronic pain COPD (chronic obstructive pulmonary disease) Depression Desire for detoxification Easy bruising Elevated LFTs Excessive bleeding Gastric reflux High cholesterol History of edema Hyperglycemia Hypertension Hypothyroidism Marijuana use On home oxygen therapy Pulmonary embolism Pulmonary embolism Restless legs Shortness of breath on exertion Sleep apnea Smoker Walker as ambulation aid Wears glasses Home Medications atorvastatin 40 mg tablet 40 mg PO QHS cholesterol 04/30/21 [History Last Taken 04/29/21] baclofen 10 mg tablet 10 mg PO BID pain 04/30/21 [History Last Taken 04/30/21] bupropion HCl 150 mg tablet,12 hr sustained-release (Wellbutrin SR) 150 mg PO DAILY depression 04/30/21 [History Last Taken 04/30/21] famotidine 20 mg tablet 20 mg PO QHS gerd 04/30/21 [History Last Taken 04/29/21] ferrous sulfate 325 mg (65 mg iron) tablet 325 mg PO BID supplement 04/30/21 [History Last Taken 04/30/21] fluoxetine 60 mg tablet 60 mg PO DAILY anxiety 04/30/21 [History Last Taken 04/30/21] furosemide 40 mg tablet 40 mg PO DAILY fluid retention 04/30/21 [History Last Taken 04/30/21] levothyroxine 25 mcg tablet 25 mcg PO DAILY hypothyroid 04/30/21 [History Last Taken 04/30/21] lisinopril 20 mg tablet 20 mg PO DAILY BP 04/30/21 [History Last Taken 01/22/22] omeprazole 40 mg capsule,delayed release 40 mg PO DAILY GERD 04/30/21 [History Last Taken 04/30/21] potassium chloride 10 mEq tablet,extended release 10 meq PO DAILY supplement 04/30/21 [History Last Taken 04/30/21] tiotropium bromide 2.5 mcg/actuation mist for inhalation (Spiriva Respimat) 2 puff inhalation DAILY COPD 04/30/21 [History Last Taken 01/22/22] pregabalin 150 mg capsule (Lyrica) 150 mg PO TID pain 05/03/21 [History Last Taken Unknown] albuterol sulfate 2.5 mg/3 mL (0.083 %) solution for nebulization 2.5 mg i nhalation Q6H PRN PRN Shortness Of Breath Or Wheezing 10/12/21 [History Last Taken 01/22/22] albuterol sulfate 90 mcg/actuation aerosol inhaler (Ventolin HFA) 1 puff inhalation Q4H PRN PRN Shortness Of Breath Or Wheezing 10/12/21 [History Last Taken Unknown] cholecalciferol (vitamin D3) 25 mcg (1,000 unit) capsule (Vitamin D3) 25 mcg PO DAILY 10/12/21 [History Last Taken Unknown] ascorbic acid (vitamin C) 500 mg tablet 500 mg PO DAILY prophylaxis of crps 2 months #60 tabs 01/12/22 [Rx Last Taken Unknown] melatonin 10 mg tablet 10 mg PO QHS 01/21/22 [History Last Taken Unknown] metronidazole 500 mg tablet 500 mg PO BID 01/21/22 [History Last Taken Unknown] trazodone 50 mg tablet 50 mg PO QHS 01/21/22 [History Last Taken Unknown] Allergy/AdvReac Type Severity Reaction Status Date / Time fentanyl AdvReac Anaphylaxis Verified 01/22/22 08:50 [email or web address] [From Chantix] AdvReac hallucinati Verified 01/22/22 08:50 ons Family History Other Cancer Surgical History H/O skin graft H/O: hysterectomy Hx of cholecystectomy Hx of tonsillectomy Social History household members: none Smoking Status: Current every day smoker tobacco type: cigarettes alcohol intake: former substance use type: marijuana additional social history: disabled Vital Signs Vital Signs Vital Signs: 01/22/22 08:41 01/22/22 08:41 Temperature 97.3 F L Temperature Source Temporal Pulse Rate 60 Respiratory Rate 18 Respiratory Pattern Normal Blood Pressure 129/92 H Blood Pressure Mean 104 Blood Pressure Source Monitor Blood Pressure Position Semi-Fowlers Blood Pressure Location Left Arm Pulse Ox 94 Oxygen Delivery Method Room Air Weight Weight: 177 lb 7.554 oz Body Mass Index (BMI) 26.2 Results Lab / Micro Data Result Diagrams: 01/22/22 08:45 01/22/22 08:45 Labs: Laboratory Results - last 24 hr 01/22/22 08:45: PT 13.3, INR 1.0, APTT 31.5 01/22/22 08:45: Sodium 136, Potassium 4.1, Chloride 101, Carbon Dioxide 31.0, Anion Gap 4 L, BUN 9, Creatinine 0.60, Estim Creat Clear Calc 113.32, Est GFR (MDRD) Af Amer 133, Est GFR (MDRD) Non-Af 110, BUN/Creatinine Ratio 14.9, Glucose 98, Calcium 8.7, Total Bilirubin 0.30, Direct Bilirubin 0.13, AST 29, ALT 32, Alkaline Phosphatase 65, Total Protein 7.3, Albumin 3.1 L, Globulin 4.2, TSH 0.96 01/22/22 08:45: WBC 8.6, RBC 4.03 L, Hgb 12.9, Hct 38.6, MCV 95.8, MCH 32.0, MCHC 33.4, RDW Std Deviation 42.6, RDW Coeff of Sandeep 12.2, Plt Count 318, MPV 10.3
[2022-01-22] MEDS: Cefazolin 2 GM in 0.9% Normal Saline 100 ML IV (09:51)
--- NOTE | 2022-01-22 10:40 | RAD_ITS ---
INDICATION: FX EXAMINATION/TECHNIQUE: X-RAY - RIGHT XR Wrist 2 Views 3 VIEWS COMPARISON: 01/15/2022. FINDINGS: 2 spot fluoroscopic images were obtained intraoperatively. Images demonstrate plate and screws internally fixating the distal radial fracture. Swelling visualized along the anterior lateral aspect of the wrist and distal radius consistent with postoperative changes. Near anatomic bone alignment is seen. Mild degenerative bone changes seen. RAD/Wrist 2 Views IMPRESSION: Unremarkable internal fixation of the distal radius. Electronically Signed: Thanh Sutherland MD at 15:23 EDT ,
--- NOTE | 2022-01-22 13:19 | OP.PCM_ITS ---
Problems Associated Problem List Diagnoses (1) Closed fracture of right distal radius: Report of Operation Date of Procedure: 01/22/22 Pre-Operative Diagnosis: Right distal radius fracture Post-Operative Diagnosis: Right distal radius fracture Surgery/Procedure Performed:: Right distal radius open reduction internal fixation Description of Surgical Findings:: Fracture of right radius Surgeon: Prasanth Jones Type of Anesthesia: Block,Axillary and General/Regional Anesthesiologist: Bam Riggs Specimen's removed: None Estimated Blood Loss (mL): 100 Description of Procedure: Patient was administered an axillary anesthetic preoperative block. I spoke with the patient for the surgery and answered any other questions pros and cons risks and benefits discussed. I bivalved the cast and marked the right upper extremity. Patient was brought to the operating room theater. They were administered a general anesthetic. Placed supine on the operating room table. Hand table to the patient's right side. 2 g of IV Ancef administered prior to the start of the case. 18 inch tourniquet applied to the right upper extremity appropriately padded. Limb was prepped and draped in the usual sterile fashion with chlorhexidine prep solution allowing this over 3 minutes for drying. Preoperative timeout was performed from the site patient surgery. I began by exsanguinating the limb elevating the tourniquet to 250 mmHg. I used a standard volar approach to the wrist I incised through the skin. I incised the fascia overlying the FCR tendon and then the subcu sheath. I retracted the FCR tendon ulnarly. I retracted the FPL muscle belly and then made a L-shaped incision in the pronator quadratus elevating this creating an ulnar based flap. Identify the fracture site. This is already quite scarred and healed and I had to spend quite a bit of time mobilizing the fracture site. This was at least in 3 fragments. There is a sagittal split into the joint. Radial column was quite short. Immobilized and realign the fracture. I attempted to place a Mila precontoured volar plate however a Synthes precontoured plate appeared to fit better. I aligned the distal fragment with K wires longitudinal traction. I fixated the plate to the bone using a 2.7 mm fully threaded cortical screw in the oblong hole to be able to just the plate position. I then used fully threaded 2.4 mm locking screws distally. I restored the radial length as well as the volar tilt. I then placed another 2 2.4 mm fully threaded cortical screws in the proximal end of the plate. I did find out AP lateral and true joint 30 degrees tilt lateral view to ensure no screw penetration into the joint articular surface. No crepitus with wrist range of motion. Wound thoroughly irrigated with normal saline. Hemostasis achieved after the tourniquet was let down approximately 2 hours time. I used 2-0 Vicryl to close the subcutaneous tissue and 3-0 Monocryl for the skin. Skin was cleaned with wet and dry dressing. No local anesthetic due to preoperative block. I used Cavilon to clean the skin and Steri-Strips cut in half. Xeroform followed by gauze sterile cast padding and then a volar- based fiberglass splint to immobilize the wrist overwrapped with Richard bandage. Patient woken up with her general anesthetic transferred off the operating room table and taken to postanesthetic care unit in stable condition. All sponge needle instrument counts were correct no complications estimated blood loss 100 cc. Plan for the patient nonweightbearing follow-up in clinic in 1 to 2 weeks discharge home operative day surgery criteria I did preoperative narcotic counseling warned about warning signs of overdose risk factors for addiction and other side effects and risks with taking this type of medication. Patient understands and wishes to try Percocet after surgery. Grafts/Implants Used: Synthes precontoured volar distal radius plate Complications none Admit VTE Documentation VTE Present on Admission: No VTE Pharm Prophylaxis ordered?: No Reason prophylaxis not ordered:: Treatment Not Indicated Procedures Musculoskeletal [id number]: Other Procedure See Report
--- NOTE | 2022-01-22 13:29 | DCINST_ITS ---
Discharge Instructions Diet Discharge Diet: No restrictions Activity Discharge Activity: May Not Drive and May Not Shower May resume sexual activity in: 6-8 weeks Lifting Restrictions: no lifting Keep extremity elevated above heart level: Right Arm Dressing / Incision Call your doctor if your incision/area has: Continuous Slow Oozing, Sudden Increased Bleeding, Increased Pain/ Swelling, Increased Redness, Foul Smelling Discharge and Swelling at the incision site Call your doctor if you observe: Fever of 101 or Higher, Coldness, Increased Pain, Numbness or Tingling, Change in Color, Shortness of breath, Dizziness and Chest pain Suture Line Care: Avoid Pulling/Pushing Change Dressing in: leave in place till F/U Cleanse incision/area with: Do not get Incision Wet Follow Up Care Please Follow Up With: Prasanth Jones MD When: 1 week Test Results: Test results from this visit will be discussed in further detail at your follow- up appointment, if applicable. Discharge Plan Admission Primary Reason for Your Visit: surgery right wrist Attending Provider: Prasanth Jones Primary Care Provider: Memo Chairez Discharge Orders/Prescriptions Prescriptions: New oxycodone-acetaminophen [Endocet] 5-325 mg tablet 1 tab PO Q4H MDD 6 PRN (Reason: pain) 7 Days Qty: 30 0RF No Action ascorbic acid (vitamin C) 500 mg tablet 500 mg PO DAILY MDD 1 tab 60 Days Qty: 60 0RF furosemide 40 mg Tablet 40 mg PO DAILY atorvastatin 40 mg Tablet 40 mg PO QHS bupropion HCl [Wellbutrin SR] 150 mg Tablet Sustained-Release 12 Hr 150 mg PO DAILY lisinopril 20 mg Tablet 20 mg PO DAILY potassium chloride 10 mEq Tablet Extended Release 10 meq PO DAILY omeprazole 40 mg Capsule,Delayed Release(Dr/Ec) 40 mg PO DAILY levothyroxine 25 mcg Tablet 25 mcg PO DAILY famotidine 20 mg Tablet 20 mg PO QHS baclofen 10 mg Tablet 10 mg PO BID ferrous sulfate 325 mg (65 mg iron) Tablet 325 mg PO BID fluoxetine 60 mg Tablet 60 mg PO DAILY Spiriva Respimat 2.5 mcg/actuation Mist 2 puff INHALATION DAILY pregabalin [Lyrica] 150 mg capsule 150 mg PO TID cholecalciferol (vitamin D3) [Vitamin D3] 25 mcg (1,000 unit) Capsule 25 mcg PO DAILY albuterol sulfate 2.5 mg /3 mL (0.083 %) solution for nebulization 2.5 mg inhalation Q6H PRN PRN (Reason: Shortness Of Breath Or Wheezing) albuterol sulfate [Ventolin HFA] 90 mcg/actuation HFA aerosol inhaler 1 puff INHALATION Q4H PRN PRN (Reason: Shortness Of Breath Or Wheezing) trazodone 50 mg Tablet 50 mg PO QHS metronidazole 500 mg Tablet 500 mg PO BID melatonin 10 mg Tablet 10 mg PO QHS Referrals / Follow Up: Memo Chairez MD [Primary Care Provider] - Disposition Disposition (needs filled in before D/C Order can be placed): Home, Self Care
== END 2022-01-22 15:22 | disposition home or self-care (01) ==
LOC: SDC 07:45 → AC 07:45
PROVIDERS: Anesthesiology; PCP Family Medicine; Referring Provider Orthopaedic Surgery Sports Medicine; Visit Provider Orthopaedic Surgery Sports Medicine
PROC: (CPT 25609; principal; 2022-01-22 09:40)
DX: S52.501A Unspecified fracture of the lower end of right radius, initial encounter for closed fracture (principal); J44.9 Chronic obstructive pulmonary disease, unspecified; F10.10 Alcohol abuse, uncomplicated; I10 Essential (primary) hypertension; F12.90 Cannabis use, unspecified, uncomplicated; D64.9 Anemia, unspecified; F17.210 Nicotine dependence, cigarettes, uncomplicated; E78.00 Pure hypercholesterolemia, unspecified; E03.9 Hypothyroidism, unspecified; Z99.81 Dependence on supplemental oxygen; F41.9 Anxiety disorder, unspecified; F32.A Depression, unspecified; R23.3 Spontaneous ecchymoses
CPT/HCPCS: 25609; 01830; 64417; 73100; 76000; 80048; 80076; 84443; 85027; 85610; 85730; C1713; J7120; J2405

== ENCOUNTER 2022-01-31 00:05 | Emergency (ER) | payer MEDICAID, SELFPAY ==
[2022-01-31 00:06] VITALS: BP 111/57; PULSE 92; RESP 16; TEMP 36.6; O2SAT 97; BMI 21.8
--- NOTE | 2022-01-31 00:24 | EX.ED.UPPERE ---
HPI History of Present Illness Chief Complaint: Upper Extremity Injury Informant: patient Narrative Narrative: Patient complains of right wrist increased pain. She fell and fractured her wrist about 1 month ago. 1 week ago she had open reduction internal fixation. It has been hurting since. She was on Percocet but ran out yesterday. The pains been worse since then. She was stirring macaroni tonight and that caused her wrist to hurt a lot more. She has not had any fevers or chills. No actual fall impact or trauma that she states. No numbness tingling. She currently has no pain meds. She has not yet been back for follow-up with orthopedic surgery. [facility] Medical History Acute cholecystitis Acute hyponatremia Acute pancreatitis Alcohol abuse Alcohol withdrawal Ambulates with cane Anemia Anemia of unknown etiology Anxiety Arthritis Chronic pain COPD (chronic obstructive pulmonary disease) Depression Desire for detoxification Distal radius fracture, right Easy bruising Elevated LFTs Excessive bleeding Gastric reflux High cholesterol History of edema Hyperglycemia Hypertension Hypothyroidism Marijuana use On home oxygen therapy Pulmonary embolism Pulmonary embolism Restless legs Shortness of breath on exertion Sleep apnea Smoker Walker as ambulation aid Wears glasses Home Medications atorvastatin 40 mg tablet 40 mg PO QHS cholesterol 04/30/21 [History Last Taken 04/29/21] baclofen 10 mg tablet 10 mg PO BID pain 04/30/21 [History Last Taken 04/30/21] bupropion HCl 150 mg tablet,12 hr sustained-release (Wellbutrin SR) 150 mg PO DAILY depression 04/30/21 [History Last Taken 04/30/21] famotidine 20 mg tablet 20 mg PO QHS gerd 04/30/21 [History Last Taken 04/29/21] ferrous sulfate 325 mg (65 mg iron) tablet 325 mg PO BID supplement 04/30/21 [History Last Taken 04/30/21] fluoxetine 60 mg tablet 60 mg PO DAILY anxiety 04/30/21 [History Last Taken 04/30/21] furosemide 40 mg tablet 40 mg PO DAILY fluid retention 04/30/21 [History Last Taken 04/30/21] levothyroxine 25 mcg tablet 25 mcg PO DAILY hypothyroid 04/30/21 [History Last Taken 04/30/21] lisinopril 20 mg tablet 20 mg PO DAILY BP 04/30/21 [History Last Taken 01/22/22] omeprazole 40 mg capsule,delayed release 40 mg PO DAILY GERD 04/30/21 [History Last Taken 04/30/21] potassium chloride 10 mEq tablet,extended release 10 meq PO DAILY supplement 04/30/21 [History Last Taken 04/30/21] tiotropium bromide 2.5 mcg/actuation mist for inhalation (Spiriva Respimat) 2 puff inhalation DAILY COPD 04/30/21 [History Last Taken 01/22/22] pregabalin 150 mg capsule (Lyrica) 150 mg PO TID pain 05/03/21 [History Last Taken Unknown] albuterol sulfate 2.5 mg/3 mL (0.083 %) solution for nebulization 2.5 mg inhalation Q6H PRN PRN Shortness Of Breath Or Wheezing 10/12/21 [History Last Taken 01/22/22] albuterol sulfate 90 mcg/actuation aerosol inhaler (Ventolin HFA) 1 puff inhalation Q4H PRN PRN Shortness Of Breath Or Wheezing 10/12/21 [History Last Taken Unknown] cholecalciferol (vitamin D3) 25 mcg (1,000 unit) capsule (Vitamin D3) 25 mcg PO DAILY 10/12/21 [History Last Taken Unknown] ascorbic acid (vitamin C) 500 mg tablet 500 mg PO DAILY prophylaxis of crps 2 months #60 tabs 01/12/22 [Rx Last Taken Unknown] melatonin 10 mg tablet 10 mg PO QHS 01/21/22 [History Last Taken Unknown] metronidazole 500 mg tablet 500 mg PO BID 01/21/22 [History Last Taken Unknown] trazodone 50 mg tablet 50 mg PO QHS 01/21/22 [History Last Taken Unknown] oxycodone-acetaminophen 5 mg-325 mg tablet (Endocet) 1 tab PO Q4H PRN pain 1 week #30 tabs 01/22/22 [Rx Last Taken Unknown] hydrocodone-acetaminophen 5-325mg 5mg-325mg 1 tab PO Q6H PRN pain 3 days #10 tabs 01/31/22 [Rx Last Taken Unknown] Allergy/AdvReac Type Severity Reaction Status Date / Time fentanyl AdvReac Anaphylaxis Verified 01/31/22 00:06 varenicline [From Chantix] AdvReac hallucinati Verified 01/31/22 00:06 ons Family History Other Cancer Surgical History H/O skin graft H/O: hysterectomy Hx of cholecystectomy Hx of tonsillectomy Social History household members: none Smoking Status: Current every day smoker tobacco type: cigarettes alcohol intake: former substance use type: marijuana additional social history: disabled ROS ROS ED Constitutional Constitutional ED: Denies chills, fever(s), subjective or sweats Cardiovascular Cardiovascular: Denies chest pain Respiratory/Chest Respiratory/Chest: Denies cough or dyspnea Gastrointestinal Gastrointestinal: Denies nausea or vomiting Musculoskeletal Musculoskeletal: Reports other Details: See history of present illness peer Integumentary Denies rash Neurologic Neurologic: Denies paresthesias or weakness Endocrine Endocrinology: Denies polydipsia or polyuria Hematologic/Lymphatic Hematologic/Lymphatic: Denies easy bleeding or easy bruising EXAM Physical Exam Const Vital Signs: 01/31/22 00:06 Temperature 97.9 F Temperature Source Temporal Pulse Rate 92 Respiratory Rate 16 Blood Pressure 111/57 L Blood Pressure Mean 75 Pulse Ox 97 Oxygen Delivery Method Room Air Positive well nourished and well developed Constitutional Narrative: Patient sitting quietly in bed. No acute distress. Strong smell of cigarettes. I did explain that cessation or reduction of smoking can help her heal. General Appearance ED: well developed and NAD HEENT atraumatic Resp normal respiratory effort Extremity Extremity Narrative: There is a splint on her right wrist/forearm area. It is in reasonably good condition. Good range of motion of the fingers and color distally. Wrist was unwrapped. There was a volar fiberglass pad. We took the wound down to the point of Steri-Strips. There is no erythema warmth or notable swelling that would be abnormal. There is no drainage at all. The dressing is completely dry. No sign of infection. Neuro Neuro Narrative: No notable sensory loss distally MDM MDM MDM Narrative Medical decision making narrative: Three-view x-ray looked at by me and read by radiology shows no interval change in position of plates. There is soft tissue swelling which is expected. However, clinically there is no sign of infection whatsoever. This wound is completely dry and there is no erythema or notable warmth. I think the patient has soreness because she had increased use and use this hand to stir a pot of macaroni and cheese. Splint will be reapplied with clean dressing. She will follow-up with orthopedics as scheduled. I will write for a few hydrocodone. I put new dressing over the wound. We wrapped her hand with web roll. Her splint was reapplied with new Richard wrap Discharge Plan Triage Chief Complaint: Upper Extremity Injury ED Provider: Alna Gan Dx/Rx/DC Orders Clinical Impression: Postoperative pain of extremity, Right wrist pain Instructions: ED Fracture, Wrist, General Prescriptions: New hydrocodone-acetaminophen 5-325 mg tablet 1 tab PO Q6H PRN (Reason: pain) 3 Days Qty: 10 0RF No Action ascorbic acid (vitamin C) 500 mg tablet 500 mg PO DAILY MDD 1 tab 60 Days Qty: 60 0RF furosemide 40 mg Tablet 40 mg PO DAILY atorvastatin 40 mg Tablet 40 mg PO QHS bupropion HCl [Wellbutrin SR] 150 mg Tablet Sustained-Release 12 Hr 150 mg PO DAILY lisinopril 20 mg Tablet 20 mg PO DAILY potassium chloride 10 mEq Tablet Extended Release 10 meq PO DAILY omeprazole 40 mg Capsule,Delayed Release(Dr/Ec) 40 mg PO DAILY levothyroxine 25 mcg Tablet 25 mcg PO DAILY famotidine 20 mg Tablet 20 mg PO QHS baclofen 10 mg Tablet 10 mg PO BID ferrous sulfate 325 mg (65 mg iron) Tablet 325 mg PO BID fluoxetine 60 mg Tablet 60 mg PO DAILY Spiriva Respimat 2.5 mcg/actuation Mist 2 puff INHALATION DAILY pregabalin [Lyrica] 150 mg capsule 150 mg PO TID cholecalciferol (vitamin D3) [Vitamin D3] 25 mcg (1,000 unit) Capsule 25 mcg PO DAILY albuterol sulfate 2.5 mg /3 mL (0.083 %) solution for nebulization 2.5 mg inhalation Q6H PRN PRN (Reason: Shortness Of Breath Or Wheezing) albuterol sulfate [Ventolin HFA] 90 mcg/actuation HFA aerosol inhaler 1 puff INHALATION Q4H PRN PRN (Reason: Shortness Of Breath Or Wheezing) trazodone 50 mg Tablet 50 mg PO QHS metronidazole 500 mg Tablet 500 mg PO BID melatonin 10 mg Tablet 10 mg PO QHS oxycodone-acetaminophen [Endocet] 5-325 mg tablet 1 tab PO Q4H MDD 6 PRN (Reason: pain) 7 Days Qty: 30 0RF Primary Care Provider: Memo Chairez Referrals: Prasanth Jones MD [Med Staff - Active Staff] - 2 Days for wound check Memo Chairez MD [Primary Care Provider] - Disposition Disposition: Home, Self Care
--- NOTE | 2022-01-31 00:35 | RAD_ITS ---
EXAM: XR RIGHT WRIST COMPLETE, 3 OR MORE VIEWS CLINICAL INDICATION: trauma TECHNIQUE: Frontal, lateral and oblique views of the right wrist. This report was created using [employer] report generation technology. COMPARISON: None. FINDINGS: See Impression. RAD/Wrist min 3 Views IMPRESSION: 1. Interval cast removal. Unchanged alignment at the distal radius fracture site which is surgically fixated by a plate and multiple screws. No gross evidence of any hardware complications. Fracture is incompletely healed. 2. Moderate degenerative changes of the first carpometacarpal joint. 3. Diffuse soft tissue swelling about the wrist/distal forearm. Electronically Signed: Reginaldo Rogers MD at 1:32 EDT ,
[2022-01-31] MEDS: oxyCODONE 5 MG Tablet PO (00:41)
[2022-01-31 00:43] VITALS: RESP 14; TEMP 36.9; O2SAT 99
[2022-01-31 02:03] VITALS: BP 128/78; PULSE 74; RESP 15; O2SAT 99
== END 2022-01-31 02:03 | disposition home or self-care (01) ==
PROVIDERS: Emergency Provider Emergency Medicine; PCP Family Medicine; Visit Provider Emergency Medicine
DX: G89.18 Other acute postprocedural pain (principal); J44.9 Chronic obstructive pulmonary disease, unspecified; I10 Essential (primary) hypertension; E78.00 Pure hypercholesterolemia, unspecified; F12.90 Cannabis use, unspecified, uncomplicated; F17.210 Nicotine dependence, cigarettes, uncomplicated; M79.89 Other specified soft tissue disorders; M25.531 Pain in right wrist; Z86.711 Personal history of pulmonary embolism
CPT/HCPCS: 73110; 99283

== ENCOUNTER 2022-02-24 14:29 | Emergency (ER) | payer MEDICAID, SELFPAY ==
[2022-02-24 14:36] VITALS: BP 112/72; PULSE 94; RESP 18; TEMP 36.6; O2SAT 96; BMI 25.8
--- NOTE | 2022-02-24 15:59 | EDS_ITS ---
HPI History of Present Illness Chief Complaint: Hypotension Informant: patient Narrative Narrative: Patient presents with complaint of low blood pressure at an office visit this morning. She has been n.p.o. since midnight. She had injections of her back. This is in preparation for an ablation procedure. She did take all her meds. She does note is still on Lasix at 40 mg a day. She has never had CHF. She states this is because she used to have retaining fluid. She is not sure where she was retaining it. But she denies any heart issues. She states she has been on all her meds for a long time and nobody is really addressed it or talk to her about them. She states sometimes she gets lightheaded if she stands up quickly. Sometimes she gets twitches all over her body. However, these are not new and associated with today. She really has no complaint at this time. She does not know what the blood pressures that were obtained in the office were. But they stated they thought she should have it evaluated. [facility] Medical History Acute cholecystitis Acute hyponatremia Acute pancreatitis Alcohol abuse Alcohol withdrawal Ambulates with cane Anemia Anemia of unknown etiology Anxiety Arthritis Chronic pain COPD (chronic obstructive pulmonary disease) Depression Desire for detoxification Distal radius fracture, right Easy bruising Elevated LFTs Excessive bleeding Gastric reflux High cholesterol History of edema Hyperglycemia Hypertension Hypothyroidism Marijuana use On home oxygen therapy Pulmonary embolism Pulmonary embolism Restless legs Shortness of breath on exertion Sleep apnea Smoker Walker as ambulation aid Wears glasses Home Medications baclofen 10 mg tablet 10 mg PO BID pain 04/30/21 [History Last Taken 04/30/21] bupropion HCl 150 mg tablet,12 hr sustained-release (Wellbutrin SR) 150 mg PO DAILY depression 04/30/21 [History Last Taken 04/30/21] famotidine 20 mg tablet 20 mg PO QHS gerd 04/30/21 [History Last Taken 04/29/21] ferrous sulfate 325 mg (65 mg iron) tablet 325 mg PO BID supplement 04/30/21 [History Last Taken 04/30/21] fluoxetine 60 mg tablet 60 mg PO DAILY anxiety 04/30/21 [History Last Taken 04/30/21] furosemide 40 mg tablet 40 mg PO DAILY fluid retention 04/30/21 [History Last Taken 04/30/21] levothyroxine 25 mcg tablet 25 mcg PO DAILY hypothyroid 04/30/21 [History Last Taken 04/30/21] lisinopril 20 mg tablet 20 mg PO DAILY BP 04/30/21 [History Last Taken 01/22/22] omeprazole 40 mg capsule,delayed release 40 mg PO DAILY GERD 04/30/21 [History Last Taken 04/30/21] potassium chloride 10 mEq tablet,extended release 10 meq PO DAILY supplement 04/30/21 [History Last Taken 04/30/21] tiotropium bromide 2.5 mcg/actuation mist for inhalation (Spiriva Respimat) 2 puff inhalation DAILY COPD 04/30/21 [History Last Taken 01/22/22] pregabalin 150 mg capsule (Lyrica) 150 mg PO TID pain 05/03/21 [History Last Taken Unknown] albuterol sulfate 2.5 mg/3 mL (0.083 %) solution for nebulization 2.5 mg inhalation Q6H PRN PRN Shortness Of Breath Or Wheezing 10/12/21 [History Last Taken 01/22/22] albuterol sulfate 90 mcg/actuation aerosol inhaler (Ventolin HFA) 1 puff inhalation Q4H PRN PRN Shortness Of Breath Or Wheezing 10/12/21 [History Last Taken Unknown] cholecalciferol (vitamin D3) 25 mcg (1,000 unit) capsule (Vitamin D3) 25 mcg PO DAILY 10/12/21 [History Last Taken Unknown] ascorbic acid (vitamin C) 500 mg tablet 500 mg PO DAILY prophylaxis of crps 2 months #60 tabs 01/12/22 [Rx Last Taken Unknown] melatonin 10 mg tablet 10 mg PO QHS 01/21/22 [History Last Taken Unknown] metronidazole 500 mg tablet 500 mg PO BID 01/21/22 [History Last Taken Unknown] trazodone 50 mg tablet 50 mg PO QHS 01/21/22 [History Last Taken Unknown] oxycodone-acetaminophen 5 mg-325 mg tablet (Endocet) 1 tab PO Q4H PRN pain 1 week #30 tabs 01/22/22 [Rx Last Taken Unknown] hydrocodone-acetaminophen 5-325mg 5mg-325mg 1 tab PO Q6H PRN pain 3 days #10 tabs 01/31/22 [Rx Last Taken Unknown] atorvastatin 40 mg tablet 40 mg PO QHS cholesterol 02/03/22 [History Last Taken Unknown] Allergy/AdvReac Type Severity Reaction Status Date / Time fentanyl Allergy Anaphylaxis Verified 02/24/22 14:40 [email or web address] [From Chantix] AdvReac hallucinati Verified 02/18/22 10:21 ons Family History Other Cancer Surgical History H/O skin graft H/O: hysterectomy Hx of cholecystectomy Hx of tonsillectomy Social History household members: none Smoking Status: Current every day smoker tobacco type: cigarettes alcohol intake: former substance use type: marijuana additional social history: disabled ROS ROS ED Constitutional Constitutional ED: Denies chills or fever(s) Eyes Eyes: Denies change in vision ENT ENT ED: Denies rhinorrhea or sore throat Cardiovascular Cardiovascular: Denies chest pain or palpitations Respiratory/Chest Respiratory/Chest: Denies cough or dyspnea Gastrointestinal Gastrointestinal: Denies diarrhea, nausea or vomiting Genitourinary Genitourinary ED: Denies dysuria or hematuria Musculoskeletal Musculoskeletal: Reports back pain and other Details: Back pain is chronic and unchanged Integumentary Denies rash Neurologic Neurologic: Reports other Details: Occasional full body twitching. But this is not new or different ; Denies headache(s), paresthesias or weakness Psychiatric Psychiatric: Reports anxiety Endocrine Endocrinology: Denies polydipsia or polyuria Hematologic/Lymphatic Hematologic/Lymphatic: Denies easy bleeding or easy bruising Allergic/Immunologic Allergic/Immunologic ED: Denies urticaria EXAM Physical Exam Const Vital Signs: 02/24/22 14:36 02/24/22 15:37 02/24/22 16:01 Temperature 97.9 F Temperature Source Temporal Pulse Rate 94 81 Pulse Rate [Lying] Pulse Rate [Sitting (for 1 minute prior to obtaining)] Pulse Rate [Standing (for 1 minute prior to obtaining)] Respiratory Rate 18 18 Respiratory Effort Normal Non-Labored Blood Pressure 112/72 103/88 H Blood Pressure [Lying] Blood Pressure [Sitting (for 1 minute prior to obtaining)] Blood Pressure [Standing (for 1 minute prior to obtaining)] Blood Pressure Mean 85 93 Blood Pressure Mean [Lying] Blood Pressure Mean [Sitting (for 1 minute prior to obtaining)] Blood Pressure Mean [Standing (for 1 minute prior to obtaining)] Pulse Ox 96 94 Oxygen Delivery Method Room Air Room Air 02/24/22 17:00 02/24/22 17:55 Temperature Temperature Source Pulse Rate 82 Pulse Rate [Lying] 86 Pulse Rate [Sitting (for 1 minute prior to obtaining)] 83 Pulse Rate [Standing (for 1 minute prior to obtaining)] 88 Respiratory Rate 16 Respiratory Effort Blood Pressure 115/78 Blood Pressure [Lying] 120/79 Blood Pressure [Sitting (for 1 minute prior to obtaining)] 127/101 H Blood Pressure [Standing (for 1 minute prior to obtaining)] 100/76 Blood Pressure Mean 90 Blood Pressure Mean [Lying] 92 Blood Pressure Mean [Sitting (for 1 minute prior to obtaining)] 109 Blood Pressure Mean [Standing (for 1 minute prior to obtaining)] 84 Pulse Ox 91 Oxygen Delivery Method Room Air Positive well nourished and well developed General Appearance ED: well developed; Negative for pallor HEENT Reports moist mucous membranes; Denies dry mucous membranes Mouth ED: No dry mucous membranes Mouth: No dry mucous membranes Eyes General Eye ED: Negative for scleral icterus Neck no JVD Chest Wall inspection of chest normal Resp normal respiratory effort and clear to auscultation bilaterally Auscultation: Negative for rales, rhonchi or wheezes Cardio regular rate and regular rhythm Rate: Negative for bradycardia or tachycardic Rhythm: Negative for abnormal rhythm GI normal to inspection, nondistended, normoactive bowel sounds, non-tender and non-distended Back/Spine no CVA tenderness Extremity Extremity Narrative: There is no edema whatsoever. No tenderness. No cords. No asymmetry General Extremety ED: Negative for edema or tenderness General Extremity: Negative for edema Neuro oriented x3 and no sensory deficits noted Sensorium / Orientation: Negative for orientation impaired Motor Exam: strength 5/5 throughout Psych mental status grossly normal Skin no rashes or lesions noted General Skin Exam: Negative for jaundice or pallor MDM MDM MDM Narrative Medical decision making narrative: Blood work showed normal CBC. However, her electrolytes showed elevated creatinine and potassium. Patient was given fluids and she felt a lot better. We gave her another liter of fluids. She would like to go home. She states she has been getting lightheaded episodes for a long time. She is not having them now. She feels w ell. I explained that she does look dehydrated. This is likely being on Lasix. I asked her why the Lasix was started. She states it was started because she used to get swelling in her legs. However, she worked very hard to lose weight. She used to be over 300 pounds and is now about 160. She states ever since she lost weight she has never had swelling in her legs again. She never had conge stive heart failure. I think at this point we can stop her Lasix. She will also stop her potassium. It is possible this will need to be restarted a low- dose but there is a good chance she may not need this anymore. She will follow- up with her physician. She should have some repeat blood work done in couple of days to recheck. Lab Data Attestation: I reviewed the patient's lab results. Labs: Laboratory Results - last 24 hr 02/24/22 02/24/22 16:16 16:16 WBC 7.1 RBC 3.88 L Hgb 12.2 Hct 36.8 L MCV 94.8 MCH 31.4 MCHC 33.2 RDW Std Deviation 43.1 RDW Coeff of Sandeep 12.3 Plt Count 248 MPV 11.1 Immature Gran % (Auto) 0.400 Neut % (Auto) 92.7 H Lymph % (Auto) 5.7 L Pitkin % (Auto) 1.0 Eos % (Auto) 0.1 Baso % (Auto) 0.1 Absolute Neuts (auto) 6.5 Absolute Lymphs (auto) 0.40 L Nucleated RBC % 0 Differential Comment Platelet Estimate ADEQUATE RBC Morphology NORM C+C Sodium 131 L Potassium 5.4 H Chloride 99 Carbon Dioxide 26.0 Anion Gap 6 BUN 41 H Creatinine 1.67 H Estim Creat Clear Calc 39.30 Est GFR (MDRD) Af Amer 41 L Est GFR (MDRD) Non-Af 34 L BUN/Creatinine Ratio 24.6 H Glucose 160 H Calcium 9.2 Discharge Plan Triage Chief Complaint: Hypotension ED Provider: Alan Gan Dx/Rx/DC Orders Clinical Impression: Dehydration, Hyperkalemia Instructions: Dehydration, ED Hyperkalemia Prescriptions: No Action ascorbic acid (vitamin C) 500 mg tablet 500 mg PO DAILY MDD 1 tab 60 Days Qty: 60 0RF furosemide 40 mg Tablet 40 mg PO DAILY bupropion HCl [Wellbutrin SR] 150 mg Tablet Sustained-Release 12 Hr 150 mg PO DAILY lisinopril 20 mg Tablet 20 mg PO DAILY potassium chloride 10 mEq Tablet Extended Release 10 meq PO DAILY omeprazole 40 mg Capsule,Delayed Release(Dr/Ec) 40 mg PO DAILY levothyroxine 25 mcg Tablet 25 mcg PO DAILY famotidine 20 mg Tablet 20 mg PO QHS baclofen 10 mg Tablet 10 mg PO BID ferrous sulfate 325 mg (65 mg iron) Tablet 325 mg PO BID fluoxetine 60 mg Tablet 60 mg PO DAILY Spiriva Respimat 2.5 mcg/actuation Mist 2 puff INHALATION DAILY pregabalin [Lyrica] 150 mg capsule 150 mg PO TID atorvastatin 40 mg tablet 40 mg PO QHS cholecalciferol (vitamin D3) [Vitamin D3] 25 mcg (1,000 unit) Capsule 25 mcg PO DAILY albuterol sulfate 2.5 mg /3 mL (0.083 %) solution for nebulization 2.5 mg inhalation Q6H PRN PRN (Reason: Shortness Of Breath Or Wheezing) albuterol sulfate [Ventolin HFA] 90 mcg/actuation HFA aerosol inhaler 1 puff INHALATION Q4H PRN PRN (Reason: Shortness Of Breath Or Wheezing) trazodone 50 mg Tablet 50 mg PO QHS metronidazole 500 mg Tablet 500 mg PO BID melatonin 10 mg Tablet 10 mg PO QHS oxycodone-acetaminophen [Endocet] 5-325 mg tablet 1 tab PO Q4H MDD 6 PRN (Reason: pain) 7 Days Qty: 30 0RF hydrocodone-acetaminophen 5-325 mg tablet 1 tab PO Q6H PRN (Reason: pain) 3 Days Qty: 10 0RF Primary Care Provider: Memo Chairez Referrals: Memo Chairez MD [Primary Care Provider] - 2 Days Activity Restrictions/Additional Instructions: Stop your Lasix and potassium at this time. You should have blood work rechecked in 1 or 2 days. Disposition Disposition: Home, Self Care
[2022-02-24 16:01] VITALS: BP 103/88; PULSE 81; RESP 18; O2SAT 94
[2022-02-24] MEDS: 0.9% Normal Saline 1,000 ML 1000 ML IV (16:19)
[2022-02-24 16:33] LABS: Absolute Neutrophil Count 6.5 X10^3/uL (2.0-7.7); Basophil# 0.01 X10^3/uL; Basophil% 0.1 % (0-1); Eosinophil# 0.01 X10^3/uL; Eosinophils% 0.1 % (0-5); Hematocrit 36.8 % (37-47); Hemoglobin 12.2 g/dL (12.0-15.0); Lymphocyte % 5.7 % (19-41); Mean Corp Hgb Conc 33.2 g/dL (32-36); Mean Corpuscular Hgb 31.4 pg (27.0-32.0); Mean Corpuscular Volume 94.8 fL (81-99); Mean Platelet Vol. 11.1 fl (6.2-12.0); Monocyte# 0.07 X10^3/uL; NRBC Flagged by Analyzer 0 % (0-5); Neutrophil # 6.53 X10^3/uL (2.7-7.7); Neutrophil % 92.7 % (47-70); POSITIVE DIFFERENTIAL YES; Platelet Count 248 K/mm3 (150-450); RBC Distribution Width CV 12.3 % (11.6-14.6); RBC Distribution Width SD 43.1 fl (35.1-43.9); Red Blood Count 3.88 M/mm3 (4.2-5.4); White Blood Count 7.1 K/mm3 (4.4-11.0)
[2022-02-24 16:37] LABS: Differential Indicated SCAN CRITERIA MET
[2022-02-24 16:43] LABS: Anion Gap 6 (5-15); BUN 41 mg/dL (7-18); BUN/Creat Ratio 24.6 RATIO (10-20); Calcium,Total 9.2 mg/dL (8.5-10.1); Chloride 99 mmol/L (98-107); Creatinine, Serum 1.67 mg/dL (0.55-1.02); EST Glomerular Filtration Rate 34 mL/min (>60); Est Glom Filt Rate - Afr Amer 41 mL/min (>60); Glucose 160 mg/dL (74-106); Potassium 5.4 mmol/L (3.5-5.1); Sodium Level 131 mmol/L (136-145)
[2022-02-24 17:00] VITALS: BP 115/78; PULSE 82; RESP 16; O2SAT 91
[2022-02-24 17:04] LABS: Platelet Estimate ADEQUATE (ADEQ); Red Cell Morphology NORM C+C NORMAL (NORM C&C)
[2022-02-24] MEDS: 0.9% Normal Saline 1,000 ML 999 ML IV (17:07)
[2022-02-24 17:55] VITALS: BP 100/76; BP 120/79; BP 127/101; PULSE 83; PULSE 86; PULSE 88
[2022-02-24 18:55] VITALS: BP 138/98; PULSE 88; RESP 18; O2SAT 98
== END 2022-02-24 18:56 | disposition home or self-care (01) ==
PROVIDERS: Emergency Provider Emergency Medicine; PCP Family Medicine; Visit Provider Emergency Medicine
DX: E86.0 Dehydration (principal); J44.9 Chronic obstructive pulmonary disease, unspecified; E87.5 Hyperkalemia; E78.00 Pure hypercholesterolemia, unspecified; F12.90 Cannabis use, unspecified, uncomplicated; I10 Essential (primary) hypertension; F17.210 Nicotine dependence, cigarettes, uncomplicated; M79.89 Other specified soft tissue disorders
CPT/HCPCS: 80048; 85025; 99285; J7030; A4216

== ENCOUNTER 2022-03-23 20:37 | Emergency (ER) | payer MEDICAID, SELFPAY ==
[2022-03-23 20:38] VITALS: BP 100/80; PULSE 93; RESP 15; TEMP 36.4; O2SAT 96; BMI 25.5
--- NOTE | 2022-03-23 21:26 | EX.ED.DYSGE1 ---
HPI History of Present Illness Chief Complaint: Other, Pain/Inj Informant: patient Onset/Context/Timing Onset: Days Context: Gradual Onset Current Severity: Severe Maximum Severity: Severe Narrative Narrative: Patient presents with left lower back pain rating down her left leg with muscle spasms. She is a history of back problems. MRI from May 2021 revealed moderate to severe right foraminal narrowing as well as severe left foraminal narrowing at L5-S1 affecting the exiting left L5 nerve root. Patient states she is fallen 3 times in the past couple days because of the pain. Pain did not increase after the fall. She called her pain management doctor today who reportedly advised her to come to the emergency room for pain control. I advised her I can get her pain under control tonight but her pain management doctor would need to write her prescriptions that she can fill tomorrow. [facility] Medical History Acute cholecystitis Acute hyponatremia Acute pancreatitis Alcohol abuse Alcohol withdrawal Ambulates with cane Anemia Anemia of unknown etiology Anxiety Arthritis Chronic pain COPD (chronic obstructive pulmonary disease) Depression Desire for detoxification Distal radius fracture, right Easy bruising Elevated LFTs Excessive bleeding Gastric reflux High cholesterol History of edema Hyperglycemia Hypertension Hypothyroidism Marijuana use On home oxygen therapy Pulmonary embolism Pulmonary embolism Restless legs Shortness of breath on exertion Sleep apnea Smoker Walker as ambulation aid Wears glasses Home Medications baclofen 10 mg tablet 10 mg PO BID pain 04/30/21 [History Last Taken 04/30/21] bupropion HCl 150 mg tablet,12 hr sustained-release (Wellbutrin SR) 150 mg PO DAILY depression 04/30/21 [History Last Taken 04/30/21] famotidine 20 mg tablet 20 mg PO QHS gerd 04/30/21 [History Last Taken 04/29/21] ferrous sulfate 325 mg (65 mg iron) tablet 325 mg PO BID supplement 04/30/21 [History Last Taken 04/30/21] fluoxetine 60 mg tablet 60 mg PO DAILY anxiety 04/30/21 [History Last Taken 04/30/21] furosemide 40 mg tablet 40 mg PO DAILY fluid retention 04/30/21 [History Last Taken 04/30/21] levothyroxine 25 mcg tablet 25 mcg PO DAILY hypothyroid 04/30/21 [History Last Taken 04/30/21] lisinopril 20 mg tablet 20 mg PO DAILY BP 04/30/21 [History Last Taken 01/22/22] omeprazole 40 mg capsule,delayed release 40 mg PO DAILY GERD 04/30/21 [History Last Taken 04/30/21] potassium chloride 10 mEq tablet,extended release 10 meq PO DAILY supplement 04/30/21 [History Last Taken 04/30/21] tiotropium bromide 2.5 mcg/actuation mist for inhalation (Spiriva Respimat) 2 puff inhalation DAILY COPD 04/30/21 [History Last Taken 01/22/22] pregabalin 150 mg capsule (Lyrica) 150 mg PO TID pain 05/03/21 [History Last Taken Unknown] albuterol sulfate 2.5 mg/3 mL (0.083 %) solution for nebulization 2.5 mg inhalation Q6H PRN PRN Shortness Of Breath Or Wheezing 10/12/21 [History Last Taken 01/22/22] albuterol sulfate 90 mcg/actuation aerosol inhaler (Ventolin HFA) 1 puff inhalation Q4H PRN PRN Shortness Of Breath Or Wheezing 10/12/21 [History Last Taken Unknown] cholecalciferol (vitamin D3) 25 mcg (1,000 unit) capsule (Vitamin D3) 25 mcg PO DAILY 10/12/21 [History Last Taken Unknown] melatonin 10 mg tablet 10 mg PO QHS 01/21/22 [History Last Taken Unknown] metronidazole 500 mg tablet 500 mg PO BID 01/21/22 [History Last Taken Unknown] trazodone 50 mg tablet 50 mg PO QHS 01/21/22 [History Last Taken Unknown] atorvastatin 40 mg tablet 40 mg PO QHS cholesterol 02/03/22 [History Last Taken Unknown] sofosbuvir 400 mg-velpatasvir 100 mg tablet 1 tab PO 03/18/22 [History Last Taken Unknown] cyclobenzaprine 10 mg tablet 10 mg PO TID PRN muscle spasm #3 tabs 03/23/22 [Rx Last Taken Unknown] oxycodone-acetaminophen 5 mg-325 mg tablet (Percocet) 1 tab PO Q6H PRN pain 1 day #4 tabs 03/23/22 [Rx Last Taken Unknown] Allergy/AdvReac Type Severity Reaction Status Date / Time fentanyl Allergy Anaphylaxis Verified 03/23/22 20:43 [email or web address] [From Chantix] AdvReac hallucinati Verified 03/23/22 20:43 ons Family History Other Cancer Surgical History H/O skin graft H/O: hysterectomy Hx of cholecystectomy Hx of tonsillectomy Social History household members: none Smoking Status: Current every day smoker tobacco type: cigarettes alcohol intake: former substance use type: marijuana additional social history: disabled ROS ROS ED Constitutional Constitutional ED: Denies chills or fever(s) Eyes Eyes: Denies change in vision or discharge from eye(s) ENT ENT ED: Denies discharge from eye(s), rhinorrhea or sore throat Cardiovascular Cardiovascular: Denies chest pain or palpitations Respiratory/Chest Respiratory/Chest: Denies cough or dyspnea Gastrointestinal Gastrointestinal: Denies abdominal pain, diarrhea, nausea or vomiting Genitourinary Genitourinary ED: Denies difficulty urinating or dysuria Musculoskeletal Musculoskeletal: Reports back pain and extremity pain Integumentary Denies Abrasions or rash Neurologic Neurologic: Denies headache(s) or weakness Psychiatric Psychiatric: Denies anxiety or depression Allergic/Immunologic Allergic/Immunologic ED: Denies lip swelling or urticaria EXAM Physical Exam Const Vital Signs: 03/23/22 20:38 03/23/22 22:38 Temperature 97.5 F L Temperature Source Temporal Pulse Rate 93 Respiratory Rate 15 18 Blood Pressure 100/80 Blood Pressure Mean 86 Pulse Ox 96 Oxygen Delivery Method Room Air Room Air Positive well nourished and well developed General Appearance ED: well developed HEENT Reports normocephalic and head/scalp atraumatic Eyes PERRL and EOMs intact bilaterally Neck supple Chest Wall inspection of chest normal and palpation of chest normal Resp normal respiratory effort and clear to auscultation bilaterally Cardio regular rate and regular rhythm GI normal to inspection, nondistended, normoactive bowel sounds Palpation: soft Back/Spine Back/Spine Narrative: Reproducible pain in the left lower lumbar paraspinal muscles. Patient with spasm in her left leg. Good range of motion with strong distal pulses. Good strength and sensation on testing. Extremity normal to inspection Neuro oriented x3 and no sensory deficits noted Sensorium / Orientation: alert Motor Exam: strength 5/5 throughout Psych mental status grossly normal Skin no rashes or lesions noted MDM MDM MDM Narrative Medical decision making narrative: Patient given p.o. Flexeril and IM Dilaudid. Treatment and Re-Evaluation Narrative: Repeat evaluation patient reported no significant improvement. She was given 2 mg of IM Dilaudid. She now states that her pain management doctor wanted an x-ray to ensure no injury from her falls. L-spine x-rays are obtained and per my interpretation for chronic changes only. Patient will be given 4 tabs of Percocet for home along with Flexeril for 1 day. She was advised that any further prescriptions need to come from her pain management doctor as it is a weekday and he will be available to speak to tomorrow. Discharge Plan Triage Chief Complaint: Other, Pain/Inj ED Provider: Lisandra Flores Dx/Rx/DC Orders Clinical Impression: Back pain, Left lumbar radiculopathy Instructions: ED Back and Neck Pain, General, ED Sciatica Prescriptions: New oxycodone-acetaminophen [Percocet] 5-325 mg tablet 1 tab PO Q6H PRN (Reason: pain) 1 Days Qty: 4 0RF cyclobenzaprine 10 mg tablet 10 mg PO TID PRN (Reason: muscle spasm) Qty: 3 0RF Discontinued oxycodone-acetaminophen [Endocet] 5-325 mg tablet 1 tab PO Q4H MDD 6 PRN (Reason: pain) 7 Days Qty: 30 0RF hydrocodone-acetaminophen 5-325 mg tablet 1 tab PO Q6H PRN (Reason: pain) 3 Days Qty: 10 0RF No Action sofosbuvir-velpatasvir 400-100 mg tablet 1 tab PO furosemide 40 mg Tablet 40 mg PO DAILY bupropion HCl [Wellbutrin SR] 150 mg Tablet Sustained-Release 12 Hr 150 mg PO DAILY lisinopril 20 mg Tablet 20 mg PO DAILY potassium chloride 10 mEq Tablet Extended Release 10 meq PO DAILY omeprazole 40 mg Capsule,Delayed Release(Dr/Ec) 40 mg PO DAILY levothyroxine 25 mcg Tablet 25 mcg PO DAILY famotidine 20 mg Tablet 20 mg PO QHS baclofen 10 mg Tablet 10 mg PO BID ferrous sulfate 325 mg (65 mg iron) Tablet 325 mg PO BID fluoxetine 60 mg Tablet 60 mg PO DAILY Spiriva Respimat 2.5 mcg/actuation Mist 2 puff INHALATION DAILY pregabalin [Lyrica] 150 mg capsule 150 mg PO TID atorvastatin 40 mg tablet 40 mg PO QHS cholecalciferol (vitamin D3) [Vitamin D3] 25 mcg (1,000 unit) Capsule 25 mcg PO DAILY albuterol sulfate 2.5 mg /3 mL (0.083 %) solution for nebulization 2.5 mg inhalation Q6H PRN PRN (Reason: Shortness Of Breath Or Wheezing) albuterol sulfate [Ventolin HFA] 90 mcg/actuation HFA aerosol inhaler 1 puff INHALATION Q4H PRN PRN (Reason: Shortness Of Breath Or Wheezing) trazodone 50 mg Tablet 50 mg PO QHS metronidazole 500 mg Tablet 500 mg PO BID melatonin 10 mg Tablet 10 mg PO QHS Primary Care Provider: Memo Chairez Referrals: Memo Chairez MD [Primary Care Provider] - Activity Restrictions/Additional Instructions: Follow-up with your pain management physician tomorrow. Any further prescriptions for pain medication needs to come from him. Disposition Disposition: Home, Self Care
[2022-03-23] MEDS: HYDROmorphone 1 MG/ML Syringe IM (21:34)
[2022-03-23] MEDS: cycloBENZAPRine HCl 10 MG Tablet PO (21:34)
[2022-03-23] MEDS: HYDROmorphone 1 MG/ML Syringe 2 MG IM (22:32)
[2022-03-23 22:38] VITALS: RESP 18
--- NOTE | 2022-03-23 22:42 | RAD_ITS ---
STUDY: X-RAY - LUMBAR SPINE REASON FOR EXAM: Female, 51 years old. Pain. TECHNIQUE: 3 view(s) of the lumbar spine were obtained. COMPARISON: 12/25/2015 lumbar spine radiographs. FINDINGS: No visible fracture. No osseous destruction. Sagittal alignment anatomic. Mild left scoliosis centered at L4 again demonstrated. Interval progression of severe disc greater than facet degeneration, particularly at L1-2, L3-4 and L4-5 where there is near-complete loss of disc space, vacuum phenomenon and degenerative endplate irregularity. No acute soft tissue abnormality. Calcific atherosclerosis. RAD/Lumbar Spine 2 or 3 Views IMPRESSION: No acute osseous abnormality. Interval progression of severe disc greater than facet degeneration. Electronically Signed: Nolan Turner MD at 23:39 EDT Reading Location ID and State: [facility] / [place] Tel , Service support ,
[2022-03-23 23:40] VITALS: BP 159/97; PULSE 71; RESP 16; O2SAT 97
== END 2022-03-23 23:56 | disposition home or self-care (01) ==
PROVIDERS: Emergency Provider Emergency Medicine; PCP Family Medicine; Visit Provider Emergency Medicine
DX: M54.16 Radiculopathy, lumbar region (principal); J44.9 Chronic obstructive pulmonary disease, unspecified; I10 Essential (primary) hypertension; F17.210 Nicotine dependence, cigarettes, uncomplicated; E78.00 Pure hypercholesterolemia, unspecified; F12.90 Cannabis use, unspecified, uncomplicated
CPT/HCPCS: 72100; 99282

== ENCOUNTER → 2022-03-30 | Outpatient (CLI) | payer MEDICAID, SELFPAY ==
--- NOTE | 2022-03-30 15:57 | CT_ITS ---
EXAM: CT RIGHT UPPER EXTREMITY WITHOUT INTRAVENOUS CONTRAST, WRIST CLINICAL INDICATION: fall after surgery, persistent lucent line TECHNIQUE: Helically acquired images were obtained of the right wrist without intravenous contrast. 2-D reformats were performed by the technologist. This CT exam was performed using one or more of the following dose reduction techniques: automated exposure control, adjustment of the mA and/or kV according to patient size, and/or use of iterative reconstruction technique. This report was created using [email or web address] report [employer] technology. RADIATION DOSE: CTDIvol = 24.58 mGy, DLP = 397.68 mGy-cm COMPARISON: xr 9.29.22 FINDINGS: BONES/JOINTS: Evidence for healing of the distal radial fracture with callus formation. No acute fractures. There is a metal sideplate transfixing the distal radius fracture. There are cortical screws holding the plate in place. Several screws extend beyond the cortex of the bone. Preservation of the joint space. No sclerotic or destructive changes. SOFT TISSUES: Unremarkable. No soft tissue swelling or gas. No radiopaque foreign body. CT/Extremity Upper without Contra IMPRESSION: Evidence for healing of the distal radial fracture with callus formation. No acute fractures. Electronically Signed: Pasquale Maradiaga MD at 17:03 EDT ,
== END | disposition home or self-care (01) ==
LOC: CT 15:54
PROVIDERS: PCP Family Medicine; Visit Provider Orthopaedic Surgery Sports Medicine
DX: S52.501A Unspecified fracture of the lower end of right radius, initial encounter for closed fracture (principal)
CPT/HCPCS: 73200

== ENCOUNTER 2022-04-09 11:00 | Outpatient (RCR) | payer MEDICAID, SELFPAY ==
--- NOTE | 2022-02-12 12:13 | HP.OTEVAL_ITS ---
Patient's Visit Information KAMI JARQUIN is a 51 year old F, referred to Occupational Therapy by Dr. Prasanth Jones MD, with a diagnosis of Right distal radius fx. Date of Evaluation: 02/12/22 Occupational Therapist: Lesvia Jung, ESTHELA/Gabriel, CHT - Subjective This 51 year old female was seen for OT eval with dx of right distal radius fx. pt states she fell while watering her graham- had the fall on January 01. pt went to ER and did reset her wrist and sent her to Dr. Jones: pt states he went ahead and did ORIF of distal radius. Sx was on 01/22/22. pt states she is on disability since for awhile due to back injury. pt states she is right handed- pt states prior to her fall and this injury she did need some help with her daily tasks. pt is 3 weeks s/p from ORIF of distal radius fx. - ADLs Comments: pt arrives states she has a friend staying with her while her arm heals-. pt states she has help with home mtg with friends. - Pain right wrist 8 Pain Intensity Range: 6 - ROM Forearm: right supination 40* left WNL Wrist: right 45/35 left 60/75 Opposition: Kapandji opposition scale right 10 left 10 ROM Comments: right RD 10* UD 15* left RD 15* UD 25*. pt demo full composite fist - Strength Chief Executive Officer: right Not Tested left 60# Lateral Pinch: right NT left 8# Tripod Pinch: right NT left 4# - Edema Wrist: right 17cm left 15cm - Sensation Sensation Comments: pt reports tingling every now and than - Quick DASH-Disab of Arm,Shoulder& Hand Quick DASH Score: 59.0900 - Goals Goal:Daily scar massage when approriate: Yes Goal:ROM equal to unaffected hand: Yes Goal:Chief Executive Officer/Pinch strength at least 75% of unaffected hand: Yes Comment: initiate strengthening at week 6 Goal:No pain with affected hand use: Yes Comment: for ADLs Goal:Full use of affected hand in daily activities including: Yes - Rehabilitation General Assessment: pt arrives 3 weeks s/p from a ORIF of right wrist- pt demo with limited ROM of right wrist and forearm and due to newly healing structures pt is limited with strength and use of right UE for ADLs and IADLs. Pt would benefit from skilled OT services 1-2x week for 6 weeks. Today therapist ed. pt on forearm supination/pronation, tendon glides to avoid scar adhesions to flexor tendons and therapist gave wrist flex/ext and RD/UD. therapist instructed pt to perform slowly and hold stretch for 3 sec. vs quickly moving wrist in her ROM. pt verbalized understanding - was given handout on ex. -pt demo understanding and agree to POC. Rehabilitation Potential: Good - Anticipated Interventions A/AAROM/PROM, Strengthening, Scar Care, Modalities, Joint Protection/Energy Conservation, Ergonomic Education, ADL Training, Home Program - Visit Plan Frequency: 1-2x /Week Duration: 6 Weeks TEXT: Thank you for the opportunity to evaluate your patient. For Medicare and Medicare HMO plans, please review the plan of care and approve it. It will need to be FAXED BACK to us at [phone] for Medicare purposes. Please let me know if there are questions or concerns regarding this plan of care. Physician Signature: Date:
--- NOTE | 2022-05-19 14:54 | HP.OT.NRP ---
KAMI JARQUIN was seen in my office for initial evaluation on 02/12/22. The following Plan of Care was established for this patient: Initial Frequency: 1-2x /Week Initial Duration: 6 Weeks Plan: Cont POC Anticipated Interventions: A/AAROM/PROM, Strengthening, Scar Care, Modalities, Joint Protection/Energy Conservation, Ergonomic Education, ADL Training, Home Program This patient was last seen in our office 04/09/22. Pertinent comments regarding their Occupational therapy will appear below: pt was seen for 6 OT sessions with dx of right ORIF. pt canceled one apt. and at last apt. pt was making gains with strength- pt has not scheduled further apts and due to time lapse in care pt d/c. At this point I will be discontinuing this patient from occupational therapy. I would be happy to see this patient again in the future if found appropriate by the physician. Thank you! Lesvia Jung, OTR/L, CHT
== END 2022-04-09 19:00 | disposition home or self-care (01) ==
LOC: OT 11:00
PROVIDERS: PCP Family Medicine; Referring Provider Orthopaedic Surgery Sports Medicine; Visit Provider Orthopaedic Surgery Sports Medicine
DX: S52.501D Unspecified fracture of the lower end of right radius, subsequent encounter for closed fracture with routine healing (principal); X58.XXXD Exposure to other specified factors, subsequent encounter
CPT/HCPCS: 97110; 97166

== ENCOUNTER 2022-05-05 19:51 | Observation (INO) | payer MEDICAID, SELFPAY ==
[2022-05-05 19:52] VITALS: BP 76/57; PULSE 89; RESP 16; TEMP 36.6; O2SAT 96; BMI 22.9
--- NOTE | 2022-05-05 20:03 | CT_ITS ---
STUDY: CT CERVICAL SPINE WITHOUT CONTRAST REASON FOR EXAM: Female, 52 years old. Fall. Injury. Dizziness with syncopal episode x4 x 8. RADIATION DOSAGE (If Supplied By Facility): CTDIvol = ( 16.73 ) mGy, DLP = ( 343.60 ) mGycm TECHNIQUE: High resolution transaxial imaging was performed without contrast material. Sagittal and coronal images were reconstructed. Individualized dose optimization techniques were used for this CT. COMPARISON: None FINDINGS: Study is mildly limited due to motion artifact. Normal craniovertebral junction. There are degenerative changes of the anterior atlantoaxial articulation. Normal odontoid process. Slight reversal of the cervical lordosis. Normal vertebral bodies and posterior osseous elements. Small focal area of sclerosis in the spinous process of C2. C2-3: Minimal endplate spondylosis.. Normal disc height and morphology. Normal central canal and intervertebral neuroforamina. C3-4: Normal endplates. Minimal bulging annulus without loss of disc height. Mild facet joint degenerative change, most marked on the left. Normal central canal and intervertebral neuroforamina. C4-5: Mild anterolisthesis of C4 on C5. There is endplate spondylosis with mild loss of disc height. There is facet joint degenerative change without subluxation. Mild stenosis of the central canal. Narrowing of the left intervertebral neuroforamen. C5-6: Mild endplate spondylosis. Loss of disc height with mild bulging annulus. Facet joint degenerative change. Normal central canal. Mild narrowing of the bilateral intervertebral neuroforamina. C6-7: Endplate spondylosis. Loss of disc height with bulging annulus. Facet joint degenerative change.. Normal central canal and intervertebral neuroforamina. C7-T1: Endplate spondylosis. Normal disc height and morphology. Normal central canal and intervertebral neuroforamina. Normal visualized soft tissue structures. CT/Spine Cervical without Contras IMPRESSION: Degenerative changes of the cervical spine without acute fracture or subluxation. Note: MRI is more sensitive than CT in detecting cord injury, ligamentous injury and epidural hematoma. If there is continued clinical concern for any of these entities, MRI should be considered. Electronically Signed: Hernando Bangura DO at 21:16 EST Reading Location ID and State: [facility] / [place] Tel [phone], Service support ,
--- NOTE | 2022-05-05 20:07 | EX.ED.DYSGE1 ---
HPI History of Present Illness Chief Complaint: Syncope Informant: patient and EMS Onset/Context/Timing Onset: Today Timing: Intermittent (Several episodes) Quality: Lightheaded followed by syncope Narrative Narrative: Patient states she has had multiple syncopal episodes today, one of them resulted in an injury to her right foot she thinks, and another resulted in worsening of her chronic neck discomfort. The only prodromal symptom she has had is lightheadedness. She denies any recent illness. She has been eating and drinking normally. She has been urinating normally. Patient states he is episodes were totally random today and not triggered by standing, bearing down/Valsalva, or anything else. [facility] Medical History Acute cholecystitis Acute hyponatremia Acute pancreatitis Alcohol abuse Alcohol withdrawal Ambulates with cane Anemia Anemia of unknown etiology Anxiety Arthritis Chronic pain COPD (chronic obstructive pulmonary disease) Depression Desire for detoxification Distal radius fracture, right Easy bruising Elevated LFTs Excessive bleeding Gastric reflux High cholesterol History of edema Hyperglycemia Hypertension Hypothyroidism Marijuana use On home oxygen therapy Pulmonary embolism Pulmonary embolism Restless legs Shortness of breath on exertion Sleep apnea Smoker Walker as ambulation aid Wears glasses Home Medications baclofen 10 mg tablet 10 mg PO BID pain 04/30/21 [History Last Taken 04/30/21] bupropion HCl 150 mg tablet,12 hr sustained-release (Wellbutrin SR) 150 mg PO DAILY depression 04/30/21 [History Last Taken 04/30/21] famotidine 20 mg tablet 20 mg PO QHS gerd 04/30/21 [History Last Taken 04/29/21] ferrous sulfate 325 mg (65 mg iron) tablet 325 mg PO BID supplement 04/30/21 [History Last Taken 04/30/21] fluoxetine 60 mg tablet 60 mg PO DAILY anxiety 04/30/21 [History Last Taken 04/30/21] levothyroxine 25 mcg tablet 25 mcg PO DAILY hypothyroid 04/30/21 [History Last Taken 04/30/21] lisinopril 20 mg tablet 20 mg PO DAILY BP 04/30/21 [History Last Taken 01/22/22] tiotropium bromide 2.5 mcg/actuation mist for inhalation (Spiriva Respimat) 2 puff inhalation DAILY COPD 04/30/21 [History Last Taken 01/22/22] pregabalin 150 mg capsule (Lyrica) 150 mg PO TID pain 05/03/21 [History Last Taken Unknown] albuterol sulfate 2.5 mg/3 mL (0.083 %) solution for nebulization 2.5 mg inhalation Q6H PRN PRN Shortness Of Breath Or Wheezing 10/12/21 [History Last Taken 01/22/22] albuterol sulfate 90 mcg/actuation aerosol inhaler (Ventolin HFA) 1 puff inhalation Q4H PRN PRN Shortness Of Breath Or Wheezing 10/12/21 [History Last Taken Unknown] cholecalciferol (vitamin D3) 25 mcg (1,000 unit) capsule (Vitamin D3) 25 mcg PO DAILY 10/12/21 [History Last Taken Unknown] melatonin 10 mg tablet 10 mg PO QHS 01/21/22 [History Last Taken Unknown] metronidazole 500 mg tablet 500 mg PO BID 01/21/22 [History Last Taken Unknown] trazodone 50 mg tablet 50 mg PO QHS 01/21/22 [History Last Taken Unknown] atorvastatin 40 mg tablet 40 mg PO QHS cholesterol 02/03/22 [History Last Taken Unknown] sofosbuvir 400 mg-velpatasvir 100 mg tablet 1 tab PO 03/18/22 [History Last Taken Unknown] cyclobenzaprine 10 mg tablet 10 mg PO TID PRN muscle spasm #3 tabs 03/23/22 [Rx Last Taken Unknown] omeprazole 20 mg capsule,delayed release 20 mg PO DAILY 03/25/22 [History Last Taken Unknown] thiamine HCl (vitamin B1) 50 mg tablet 50 mg PO DAILY 03/25/22 [History Last Taken Unknown] Allergy/AdvReac Type Severity Reaction Status Date / Time fentanyl Allergy Anaphylaxis Verified 05/05/22 19:57 varenicline [From Chantix] AdvReac hallucinati Verified 05/05/22 19:57 ons Family History Other Cancer Surgical History H/O skin graft H/O: hysterectomy Hx of cholecystectomy Hx of tonsillectomy Social History household members: none Smoking Status: Current every day smoker tobacco type: cigarettes alcohol intake: former substance use type: marijuana additional social history: disabled ROS ROS ED Constitutional Constitutional ED: Denies chills or fever(s) Eyes Eyes: Denies change in vision or diplopia ENT ENT ED: Denies rhinorrhea or sore throat Cardiovascular Cardiovascular: Reports lightheadedness and syncope; Denies chest pain, dyspnea at rest, nausea, palpitations, pounding heartbeat or racing heartbeat Respiratory/Chest Respiratory/Chest: Denies cough or dyspnea Gastrointestinal Gastrointestinal: Denies abdominal pain, diarrhea, nausea or vomiting Genitourinary Genitourinary ED: Denies dysuria or hematuria Musculoskeletal Musculoskeletal: Reports extremity pain and neck pain; Denies back pain Integumentary Denies abscess or rash Neurologic Neurologic: Denies headache(s), paresthesias or weakness Psychiatric Psychiatric: Denies anxiety or suicidal thoughts EXAM Physical Exam Const Vital Signs: 05/05/22 19:52 05/05/22 20:02 05/05/22 20:27 Temperature 97.8 F Temperature Source Temporal Pulse Rate 89 78 Respiratory Rate 16 19 H Respiratory Effort Normal Non-Labored Respiratory Pattern Normal Blood Pressure 76/57 L Blood Pressure Mean 63 Pulse Ox 96 99 Oxygen Delivery Method Room Air Room Air 05/05/22 20:27 05/05/22 21:53 05/05/22 22:58 Temperature Temperature Source Pulse Rate 83 96 Respiratory Rate 16 18 Respiratory Effort Respiratory Pattern Blood Pressure 106/75 Blood Pressure Mean 85 Pulse Ox 99 Oxygen Delivery Method Room Air Room Air Positive well nourished and well developed General Appearance ED: well developed and NAD HEENT Reports moist mucous membranes normocephalic and atraumatic Eyes PERRL and EOMs intact bilaterally Neck full ROM and supple Neck Narrative: Mild tenderness at the top of her cervical spine and around C5 no step-off or signs of injury in this area Chest Wall inspection of chest normal and palpation of chest normal Resp normal respiratory effort and clear to auscultation bilaterally Cardio regular rate, regular rhythm and no murmurs Rate: Negative for tachycardic GI non-tender and non-distended Auscultation: normoactive bowel sounds Palpation: soft Back/Spine no CVA tenderness General Back: other FROM Extremity normal to inspection Extremity Narrative: Pulling patient's right boot off is very painful but there is no reproducible bony tenderness, she indicates that the arch of her foot is where the pain is but there is no dorsal midfoot bony tenderness. No sign of injury. No toe, calcaneus, ankle tenderness. Can move all 4 extremities equally and fully without any other bony tenderness throughout. General Extremety ED: Negative for edema, pulses abnormal or tenderness General Extremity: Negative for edema or pulses abnormal Neuro oriented x3, CN's II-XII intact bilaterally and no sensory deficits noted Sensorium / Orientation: awake and alert Motor Exam: strength 5/5 throughout Skin no rashes or lesions noted and no wounds MDM MDM MDM Narrative Medical decision making narrative: Given that patient is hypotensive for unknown reason, a sepsis work-up was obtained, and after seen her past medical history involving alcohol dependence, and alcohol level and a drug screen in addition to a D-dimer. She states she has not drank any alcohol in the past year, and she uses no drugs other than marijuana occasionally. She has had no history of DVT or PE in the past that she knows of and takes no anticoagulants. Her D-dimer was elevated, as is her white blood count, the rest of her labs are normal except for BUN/creatinine at 20 and 1.49 respectively. She was given IV fluids for her blood pressure, which responded with 1 L. Clinically does not act septic. She states her right foot is really hurting, 3 view x-ray series on my interpretation negative for any fracture, 1 view chest x-ray negative for any acute pneumonia on my interpretation, and since her D-dimer was elevated this was followed up with a CTA of the chest as well as a CT of her cervical spine given her complaints. Results of these were noted. No pulmonary embolus acutely. She does have some chronic findings there in her left lung. She was given Tylenol for her foot pain. She has a leukocytosis of unknown significance, she is in chronic renal insufficiency, and her urine showed some signs of infection although she has no symptoms of a urine infection. She was pancultured. The etiology of her hypotension is unknown. Her lactate returned normal and her cardiac work-up is normal, so I am not sure if she was having syncopal episodes because of her hypotension, or if she is having transient dysrhythmias. Since she had multiple episodes of it throughout the day, I think it would be safest to admit her to observation overnight. Lab Data Attestation: I reviewed the patient's lab results. Labs: Laboratory Results - last 24 hr 05/05/22 05/05/22 05/05/22 20:15 20:15 20:15 WBC 15.6 H RBC 3.95 L Hgb 12.2 Hct 36.3 L MCV 91.9 MCH 30.9 MCHC 33.6 RDW Std Deviation 41.0 RDW Coeff of Sandeep 12.1 Plt Count 283 MPV 11.1 Immature Gran % (Auto) 0.500 Neut % (Auto) 76.7 H Lymph % (Auto) 12.9 L Stewart % (Auto) 8.3 Eos % (Auto) 1.2 Baso % (Auto) 0.4 Absolute Neuts (auto) 12.0 H Absolute Lymphs (auto) 2.01 Nucleated RBC % 0 PT 13.5 INR 1.1 APTT 32.1 D-Dimer Quant (PE/DVT) 0.82 H* Sodium 134 L Potassium 3.5 Chloride 100 Carbon Dioxide 25.0 Anion Gap 9 BUN 20 H Creatinine 1.49 H Estim Creat Clear Calc 45.11 Est GFR (MDRD) Af Amer 47 L Est GFR (MDRD) Non-Af 39 L BUN/Creatinine Ratio 13.4 Glucose 104 Lactic Acid Calcium 8.7 Total Bilirubin 0.30 AST 15 ALT 18 Alkaline Phosphatase 57 Troponin I High Sens 6 Total Protein 7.1 Albumin 3.4 Globulin 3.7 Albumin/Globulin Ratio 0.9 Urine Color Urine Clarity Urine pH Ur Specific [place] Urine Protein Urine Glucose (UA) Urine Ketones Urine Occult Blood Urine Nitrite Urine Bilirubin Urine Urobilinogen Ur Leukocyte Esterase Urine RBC Urine WBC Ur Squamous Epith Cells Urine Bacteria Urine Mucus Urine Opiates Screen Urine Methadone Screen Ur Barbiturates Screen Ur Phencyclidine Scrn Ur Amphetamines Screen MDMA (Ecstasy) Screen U Benzodiazepines Scrn Urine Cocaine Screen U Cannabinoids Screen Ur Drug Screen Comment Ethyl Alcohol 05/05/22 05/05/22 05/05/22 20:15 20:15 22:54 WBC RBC Hgb Hct MCV MCH MCHC RDW Std Deviation RDW Coeff of Sandeep Plt Count MPV Immature Gran % (Auto) Neut % (Auto) Lymph % (Auto) Stewart % (Auto) Eos % (Auto) Baso % (Auto) Absolute Neuts (auto) Absolute Lymphs (auto) Nucleated RBC % PT INR APTT D-Dimer Quant (PE/DVT) Sodium Potassium Chloride Carbon Dioxide Anion Gap BUN Creatinine Estim Creat Clear Calc Est GFR (MDRD) Af Amer Est GFR (MDRD) Non-Af BUN/Creatinine Ratio Glucose Lactic Acid 1.0 Calcium Total Bilirubin AST ALT Alkaline Phosphatase Troponin I High Sens Total Protein Albumin Globulin Albumin/Globulin Ratio Urine Color Urine Clarity Urine pH Ur Specific [place] Urine Protein Urine Glucose (UA) Urine Ketones Urine Occult Blood Urine Nitrite Urine Bilirubin Urine Urobilinogen Ur Leukocyte Esterase Urine RBC Urine WBC Ur Squamous Epith Cells Urine Bacteria Urine Mucus Urine Opiates Screen NEGATIVE Urine Methadone Screen NEGATIVE Ur Barbiturates Screen NEGATIVE Ur Phencyclidine Scrn NEGATIVE Ur Amphetamines Screen POSITIVE H MDMA (Ecstasy) Screen POSITIVE H U Benzodiazepines Scrn NEGATIVE Urine Cocaine Screen NEGATIVE U Cannabinoids Screen POSITIVE H Ur Drug Screen Comment Ethyl Alcohol < 3.0 05/05/22 22:54 WBC RBC Hgb Hct MCV MCH MCHC RDW Std Deviation RDW Coeff of Sandeep Plt Count MPV Immature Gran % (Auto) Neut % (Auto) Lymph % (Auto) Stewart % (Auto) Eos % (Auto) Baso % (Auto) Absolute Neuts (auto) Absolute Lymphs (auto) Nucleated RBC % PT INR APTT D-Dimer Quant (PE/DVT) Sodium Potassium Chloride Carbon Dioxide Anion Gap BUN Creatinine Estim Creat Clear Calc Est GFR (MDRD) Af Amer Est GFR (MDRD) Non-Af BUN/Creatinine Ratio Glucose Lactic Acid Calcium Total Bilirubin AST ALT Alkaline Phosphatase Troponin I High Sens Total Protein Albumin Globulin Albumin/Globulin Ratio Urine Color Yellow Urine Clarity Clear Urine pH 6.0 Ur Specific [place] 1.010 Urine Protein 15 H Urine Glucose (UA) Normal Urine Ketones Negative Urine Occult Blood Negative Urine Nitrite Negative Urine Bilirubin Negative Urine Urobilinogen Normal Ur Leukocyte Esterase 500 H Urine RBC 0 SEEN Urine WBC 10-25 SEEN Ur Squamous Epith Cells 0-5 SEEN Urine Bacteria RARE Urine Mucus 0 SEEN Urine Opiates Screen Urine Methadone Screen Ur Barbiturates Screen Ur Phencyclidine Scrn Ur Amphetamines Screen MDMA (Ecstasy) Screen U Benzodiazepines Scrn Urine Cocaine Screen U Cannabinoids Screen Ur Drug Screen Comment Ethyl Alcohol Radiography Diagnostic Testing: Clinical Impression(s) from Imaging Studies Cervical Spine CT 05/05/22 20:03 IMPRESSION: Degenerative changes of the cervical spine without acute fracture or subluxation. Note: MRI is more sensitive than CT in detecting cord injury, ligamentous injury and epidural hematoma. If there is continued clinical concern for any of these entities, MRI should be considered. Electronically Signed: Hernando Bangura DO at 21:16 EST , Chest X-Ray 05/05/22 20:45 IMPRESSION: Degenerative changes, as described above. No demonstrated acute cardiopulmonary process. Electronically Signed: Hernando Bangura at 21:18 EST , Foot X-Ray 05/05/22 20:45 IMPRESSION: Mild arthrosis of the foot. There is no acute fracture or dislocation. Electronically Signed: Hernando Bangura at 21:17 EST Reading Location ID and State: [facility] / [place] Tel [phone], Service support , Chest CTA 05/05/22 21:13 IMPRESSION: No evidence of pulmonary embolism. Mild peribronchial thickening with layering fluid or debris in some right lower lung bronchi compatible with bronchitis/bronchiolitis. Scattered Tree-in-bud centrilobular nodularity in the left lower lung may scattered aspirate or atypical infection. Largest nodule 8mm groundglassdd nodule with 4 mm solid component. 3 month follow-up CT recommended. Electronically Signed: Sukhdeep Bustamante MD at 22:22 EST , Rhythm Strip Rhythm Strip: Sinus Rhythm Rate: 85 Ectopy: None EKG Initial EKG: Attestation: I personally reviewed and interpreted this EKG as follows: Interpretation: Sinus Rhythm, No Acute Injury Pattern and Non-Specific ST Changes (inf) Prior EKG tracings: available for review Prior: Unchanged Discharge Plan Dx/Rx/DC Orders Clinical Impression: Recurrent syncope, Transient hypotension, Acute cervical myofascial strain, Contusion of foot, right, Renal insufficiency Disposition Disposition: Acute Care Hospital [facility]
[2022-05-05 20:27] VITALS: PULSE 78; RESP 19; O2SAT 99
[2022-05-05 20:30] LABS: Absolute Lymphocyte Count 2.01 X10^3/uL (0.83-4.51); Basophil# 0.06 X10^3/uL; Basophil% 0.4 % (0-1); Eosinophil# 0.19 X10^3/uL; Eosinophils% 1.2 % (0-5); Hematocrit 36.3 % (37-47); Hemoglobin 12.2 g/dL (12.0-15.0); Lymphocyte # 2.01 X10^3/ul (0.83-4.51); Lymphocyte % 12.9 % (19-41); Mean Corp Hgb Conc 33.6 g/dL (32-36); Mean Corpuscular Hgb 30.9 pg (27.0-32.0); Mean Corpuscular Volume 91.9 fL (81-99); Mean Platelet Vol. 11.1 fl (6.2-12.0); Monocyte% 8.3 % (0-10); NRBC Flagged by Analyzer 0 % (0-5); Neutrophil # 11.98 X10^3/uL (2.7-7.7); Neutrophil % 76.7 % (47-70); Platelet Count 283 K/mm3 (150-450); RBC Distribution Width CV 12.1 % (11.6-14.6); Red Blood Count 3.95 M/mm3 (4.2-5.4); White Blood Count 15.6 K/mm3 (4.4-11.0)
[2022-05-05] MEDS: 0.9% Normal Saline 1,000 ML 999 ML IV (20:30)
--- NOTE | 2022-05-05 20:45 | RAD_ITS ---
STUDY: X-RAY - RIGHT FOOT CLINICAL: Female, 52 years old. Multiple episodes of syncope with dizziness. Pain. TECHNIQUE: 3 view(s) of the foot. COMPARISON: None. FINDINGS: Normal talus, calcaneus, and tarsal bones. Mild arthrosis of the visualized subtalar, talonavicular, calcaneocuboid, tarsal and tarsometatarsal articulations. Normal metatarsi. There is degenerative arthrosis of the metatarsophalangeal joint of the hallux . Normal tibial and fibular sesamoid bones. Normal interphalangeal joint of the great toe. Normal phalanges of the great toe. Normal second through fifth metatarsophalangeal joints. Normal interphalangeal joints and phalanges of the lesser toes. The soft tissue structures are unremarkable. RAD/Foot min 3 Views IMPRESSION: Mild arthrosis of the foot. There is no acute fracture or dislocation. Electronically Signed: Hernando Bangura DO at 21:17 EST ,
--- NOTE | 2022-05-05 20:45 | RAD_ITS ---
STUDY: X-RAY CHEST REASON FOR EXAM: Female, 52 years old. Syncope. TECHNIQUE: Single AP portable view of the chest. COMPARISON: October 12, 2021. FINDINGS: The lungs are clear and expanded. There is minimal thickening the lateral horizontal fissure unchanged from the prior study. There is no demonstrated pleural abnormality. Normal size heart. Normal mediastinum and ollie. Normal visualized pulmonary arteries. Normal visualized aortic arch and descending thoracic aorta. There are diffuse degenerative changes of the visualized thoracic spine. Normal visualized ribs, clavicles, and shoulders. There is no demonstrated abnormality of the visualized soft tissue structures of the upper abdomen. RAD/Chest 1 View (Portable) IMPRESSION: Degenerative changes, as described above. No demonstrated acute cardiopulmonary process. Electronically Signed: Hernando Bangura DO at 21:18 EST ,
[2022-05-05 20:52] LABS: ALB/GLOB Ratio 0.9 RATIO (0.9-2.4); AST(SGOT) 15 U/L (15-37); Alanine Aminotransfer ALT/SGPT 18 U/L (13-56); Albumin, Serum 3.4 g/dL (3.2-5.0); Alkaline Phosphatase 57 U/L (45-117); Anion Gap 9 (5-15); BUN 20 mg/dL (7-18); BUN/Creat Ratio 13.4 RATIO (10-20); Calcium,Total 8.7 mg/dL (8.5-10.1); Chloride 100 mmol/L (98-107); Creatinine, Serum 1.49 mg/dL (0.55-1.02); EST Glomerular Filtration Rate 39 mL/min (>60); Est Glom Filt Rate - Afr Amer 47 mL/min (>60); Estimated Creatinine Clearance 45.11 ml/min; Globulin 3.7 g/dL (2.2-4.2); Glucose 104 mg/dL (74-106); Potassium 3.5 mmol/L (3.5-5.1); Protein, Total 7.1 g/dL (6.4-8.2); Sodium Level 134 mmol/L (136-145); Troponin-I HS 6 pg/mL (3.0-54.0)
[2022-05-05 20:54] LABS: International Normalized Ratio 1.1; Prothrombin Time (Protime)PT. 13.5 SECONDS (11.7-14.9)
[2022-05-05 20:55] LABS: Partial Thromboplast Time 32.1 Seconds (24.1-36.2)
[2022-05-05 20:56] LABS: Alcohol, Blood (Medical)-Serum < 3.0 mg/dL
[2022-05-05 21:11] LABS: D-Dimer Quantitative (DVT/PE) 0.82 FEU/ug/m (0.27-0.49)
--- NOTE | 2022-05-05 21:13 | CT_ITS ---
STUDY: CTA CHEST REASON FOR EXAM: Female, 52 years old. recurrent syncope, elevated d-dimer RADIATION DOSAGE (If Supplied By Facility): CTDIvol = ( 9.68 ) mGy, DLP = ( 389.16 ) mGycm TECHNIQUE: The examination was performed with the intravenous administration of IV 100mL [id number]-[id number]. Post-processing of the angiographic images was performed, with multiplanar reformation and 3D reconstruction. Individualized dose optimization techniques were used for this CT. COMPARISON: None. FINDINGS: Normal enhancement of the bilateral peripheral pulmonary arteries. There is no demonstrated pulmonary embolism. Aortic atherosclerosis without dissection or ectasia. Normal heart and pericardium. No densely calcified coronary atherosclerosis. No mediastinal or hilar adenopathy. Mild diffuse peribronchial thickening. Scattered centrilobular emphysematous change throughout the upper lungs. No consolidation effusion or pneumothorax.. Scattered mild centrilobular and tree-in-bud nodularity within the left lower lobe. Normal chest wall structures. Normal osseous structures. Left renal cysts, no imaging follow-up required CT/CTA Chest W/WO Contrast IMPRESSION: No evidence of pulmonary embolism. Mild peribronchial thickening with layering fluid or debris in some right lower lung bronchi compatible with bronchitis/bronchiolitis. Scattered Tree-in-bud centrilobular nodularity in the left lower lung may scattered aspirate or atypical infection. Largest nodule 8mm groundglassdd nodule with 4 mm solid component. 3 month follow-up CT recommended. Electronically Signed: Sukhdeep Bustamante MD at 22:22 EST ,
[2022-05-05 21:53] VITALS: BP 106/75; PULSE 83; RESP 16
[2022-05-05] MEDS: Acetaminophen 500 MG Tablet 1000 MG PO (22:15)
[2022-05-05 22:58] VITALS: PULSE 96; RESP 18; O2SAT 99
[2022-05-05 23:00] LABS: Mucous, Urine 0 SEEN /hpf (<or=2+); Red Blood Cells-Urine 0 SEEN /hpf (0-5)
[2022-05-05 23:02] LABS: Color, Urine Yellow (Yellow); Glucose, Dipstick Normal (Normal); Ketone-Dipstick Negative (Negative); Leukocyte Esterase-Dipstick 500 /ul (Negative); Nitrite-Dipstick Negative (Negative); Occult Blood-Urine Negative /ul (Negative); Protein-Dipstick 15 mg/dl (Negative); Urine Bilirubin Dipstick Negative (Negative); Urine Clarity Clear (Clear); Urine Urobilinogen Normal (Normal)
[2022-05-05 23:07] LABS: White Blood Cells 10-25 SEEN /hpf (0-5)
[2022-05-05 23:08] LABS: Bacteria RARE /hpf (None Seen); Squamous Epithelial Cells - UA 0-5 SEEN /hpf (5-10)
[2022-05-05 23:22] LABS: Amphetamine Urine VISTA POSITIVE (<1000 ng/mL); Barbiturate Urine VISTA NEGATIVE (< 200 ng/mL); Benzodiazepine Urine VISTA NEGATIVE (< 200 ng/mL); Cocaine Urine VISTA NEGATIVE (< 300 ng/mL); Ecstacy Urine VISTA POSITIVE (< 500 ng/mL); Methadone Urine VISTA NEGATIVE (< 300 ng/mL); PCP Urine VISTA NEGATIVE (< 25 ng/mL); THC Urine VISTA POSITIVE (< 50 ng/mL); Vista UDS pH Range 5
--- NOTE | 2022-05-05 23:30 | PCM.HP.STD ---
HPI - General General Date of Admission: 05/05/22 HPI Narrative KAMI JARQUIN, is a 52 F who presents to the hospital with concerns of syncope. She states that she has been getting dizzy today usually whenever she goes from sitting to standing though should not also getting dizzy at times while sitting. She has noticed that her urine is more concentrated than it normally is and she feels like she may not have been drinking as much is normal. She denies any significant illness, denies any nausea or vomiting or any diarrhea. There is no burning on urination, the UA in the ER did demonstrate rare bacteria and 500 leukocyte esterase and she does have a white count of 15.6 but no other obvious source of infection. Her creatinine is 1.5 which is higher than her baseline. She said that she fell today and hit her foot but she could not describe exactly how she hit her foot but the right foot is tender, foot x-rays negative for fracture. CTA of the chest was obtained because of an elevated D-dimer and this was negative for PE but it did shows some bronchiolitis [facility] Medical History Acute cholecystitis Acute hyponatremia Acute pancreatitis Alcohol abuse Alcohol withdrawal Ambulates with cane Anemia Anemia of unknown etiology Anxiety Arthritis Chronic pain COPD (chronic obstructive pulmonary disease) Depression Desire for detoxification Distal radius fracture, right Easy bruising Elevated LFTs Excessive bleeding Gastric reflux High cholesterol History of edema Hyperglycemia Hypertension Hypothyroidism Marijuana use On home oxygen therapy Pulmonary embolism Pulmonary embolism Restless legs Shortness of breath on exertion Sleep apnea Smoker Walker as ambulation aid Wears glasses Home Medications baclofen 10 mg tablet 10 mg PO BID pain 04/30/21 [History Last Taken 04/30/21] bupropion HCl 150 mg tablet,12 hr sustained-release (Wellbutrin SR) 150 mg PO DAILY depression 04/30/21 [History Last Taken 04/30/21] famotidine 20 mg tablet 20 mg PO QHS gerd 04/30/21 [History Last Taken 04/29/21] ferrous sulfate 325 mg (65 mg iron) tablet 325 mg PO BID supplement 04/30/21 [History Last Taken 04/30/21] fluoxetine 60 mg tablet 60 mg PO DAILY anxiety 04/30/21 [History Last Taken 04/30/21] levothyroxine 25 mcg tablet 25 mcg PO DAILY hypothyroid 04/30/21 [History Last Taken 04/30/21] lisinopril 20 mg tablet 20 mg PO DAILY BP 04/30/21 [History Last Taken 01/22/22] tiotropium bromide 2.5 mcg/actuation mist for inhalation (Spiriva Respimat) 2 puff inhalation DAILY COPD 04/30/21 [History Last Taken 01/22/22] pregabalin 150 mg capsule (Lyrica) 150 mg PO TID pain 05/03/21 [History Last Taken Unknown] albuterol sulfate 2.5 mg/3 mL (0.083 %) solution for nebulization 2.5 mg inhalation Q6H PRN PRN Shortness Of Breath Or Wheezing 10/12/21 [History Last Taken 01/22/22] albuterol sulfate 90 mcg/actuation aerosol inhaler (Ventolin HFA) 1 puff inhalation Q4H PRN PRN Shortness Of Breath Or Wheezing 10/12/21 [History Last Taken Unknown] cholecalciferol (vitamin D3) 25 mcg (1,000 unit) capsule (Vitamin D3) 25 mcg PO DAILY 10/12/21 [History Last Taken Unknown] melatonin 10 mg tablet 10 mg PO QHS 01/21/22 [History Last Taken Unknown] metronidazole 500 mg tablet 500 mg PO BID 01/21/22 [History Last Taken Unknown] trazodone 50 mg tablet 50 mg PO QHS 01/21/22 [History Last Taken Unknown] atorvastatin 40 mg tablet 40 mg PO QHS cholesterol 02/03/22 [History Last Taken Unknown] sofosbuvir 400 mg-velpatasvir 100 mg tablet 1 tab PO 03/18/22 [History Last Taken Unknown] cyclobenzaprine 10 mg tablet 10 mg PO TID PRN muscle spasm #3 tabs 03/23/22 [Rx Last Taken Unknown] omeprazole 20 mg capsule,delayed release 20 mg PO DAILY 03/25/22 [History Last Taken Unknown] thiamine HCl (vitamin B1) 50 mg tablet 50 mg PO DAILY 03/25/22 [History Last Taken Unknown] Allergy/AdvReac Type Severity Reaction Status Date / Time fentanyl Allergy Anaphylaxis Verified 05/05/22 19:57 [email or web address] [From Chantix] AdvReac hallucinati Verified 05/05/22 19:57 ons Family History Other Cancer Surgical History H/O skin graft H/O: hysterectomy Hx of cholecystectomy Hx of tonsillectomy Social History household members: none Smoking Status: Current every day smoker tobacco type: cigarettes alcohol intake: former substance use type: marijuana additional social history: disabled ROS Constitutional Constitutional: Denies chills, fatigue, fever(s) or malaise Eyes Eyes: Denies blurry vision ENT HEENT: Denies headache(s) or nasal discharge Cardiovascular Cardiovascular: Reports lightheadedness and syncope; Denies chest pain, dyspnea on exertion or palpitations Respiratory/Chest Respiratory/Chest: Denies cough, shortness of breath at rest or shortness of breath with exertion Gastrointestinal Gastrointestinal: Denies constipation, diarrhea, nausea or vomiting Genitourinary Genitourinary: Denies dysuria Neurologic Neurologic: Denies focal weakness, numbness or tremor(s) Psychiatric Psychiatric: Denies anxiety or depression Vital Signs Vital Signs Vital Signs: 05/05/22 19:52 05/05/22 20:02 05/05/22 20:27 Temperature 97.8 F Temperature Source Temporal Pulse Rate 89 78 Respiratory Rate 16 19 H Respiratory Effort Normal Non-Labored Respiratory Pattern Normal Blood Pressure 76/57 L Blood Pressure Mean 63 Pulse Ox 96 99 Oxygen Delivery Method Room Air Room Air 05/05/22 20:27 05/05/22 21:53 05/05/22 22:58 Temperature Temperature Source Pulse Rate 83 96 Respiratory Rate 16 18 Respiratory Effort Respiratory Pattern Blood Pressure 106/75 Blood Pressure Mean 85 Pulse Ox 99 Oxygen Delivery Method Room Air Room Air Weight Weight: 155 lb 10.342 oz Body Mass Index (BMI) 22.9 Physical Exam Narrative General: Alert, Oriented x3, Cooperative, No apparent distress HEENT: Atraumatic, PERRLA, EOMI, Normocephalic Oral: Dry mucosa Neck: Supple, No JVD Lungs: Clear to auscultation, Normal air movement, No rhonchi, No wheeze, No rales Cardiovascular: Regular rate, Regular Rhythm, Normal S1, Normal S2, No murmurs Abdomen: Soft, Non Tender, Non-Distended, No Hepato-splenomegaly Extremities: No edema, Capillary Refill Less than 3 Seconds Skin: No rashes, No breakdown Musculoskeletal: Right foot pain, with mild swelling over the anterior aspect of her foot Neurological: Cranial nerves II-XII grossly intact, Motor Exam 5/5 strength throughout, Sensory exam intact to light touch and pain Psych/Mental Status: Normal Affect, Appropriate Results Lab / Micro Data Result Diagrams: 05/05/22 20:15 05/05/22 20:15 Labs: Laboratory Results - last 24 hr 05/05/22 20:15: WBC 15.6 H, RBC 3.95 L, Hgb 12.2, Hct 36.3 L, MCV 91.9, MCH 30.9, MCHC 33.6, RDW Std Deviation 41.0, RDW Coeff of Sandeep 12.1, Plt Count 283, MPV 11.1, Immature Gran % (Auto) 0.500, Neut % (Auto) 76.7 H, Lymph % (Auto) 12.9 L, [place] % (Auto) 8.3, Eos % (Auto) 1.2, Baso % (Auto) 0.4, Absolute Neuts (auto) 12.0 H, Absolute Lymphs (auto) 2.01, Nucleated RBC % 0 05/05/22 20:15: PT 13.5, INR 1.1, APTT 32.1, D-Dimer Quant (PE/DVT) 0.82 H* 05/05/22 20:15: Sodium 134 L, Potassium 3.5, Chloride 100, Carbon Dioxide 25.0, Anion Gap 9, BUN 20 H, Creatinine 1.49 H, Estim Creat Clear Calc 45.11, Est GFR (MDRD) Af Amer 47 L, Est GFR (MDRD) Non-Af 39 L, BUN/Creatinine Ratio 13.4, Glucose 104, Calcium 8.7, Total Bilirubin 0.30, AST 15, ALT 18, Alkaline Phosphatase 57, Troponin I High Sens 6, Total Protein 7.1, Albumin 3.4, Globulin 3.7, Albumin/Globulin Ratio 0.9 05/05/22 20:15: Lactic Acid 1.0 05/05/22 20:15: Ethyl Alcohol < 3.0 05/05/22 22:54: Urine Opiates Screen NEGATIVE, Urine Methadone Screen NEGATIVE, Ur Barbiturates Screen NEGATIVE, Ur Phencyclidine Scrn NEGATIVE, Ur Amphetamines Screen POSITIVE H, MDMA (Ecstasy) Screen POSITIVE H, U Benzodiazepines Scrn NEGATIVE, Urine Cocaine Screen NEGATIVE, U Cannabinoids Screen POSITIVE H, Ur Drug Screen Comment 05/05/22 22:54: Urine Color Yellow, Urine Clarity Clear, Urine pH 6.0, Ur Specific [place]ie 1.010, Urine Protein 15 H, Urine Glucose (UA) Normal, Urine Ketones Negative, Urine Occult Blood Negative, Urine Nitrite Negative, Urine Bilirubin Negative, Urine Urobilinogen Normal, Ur Leukocyte Esterase 500 H, Urine RBC 0 SEEN, Urine WBC 10-25 SEEN, Ur Squamous Epith Cells 0-5 SEEN, Urine Bacteria RARE, Urine Mucus 0 SEEN Rhythm Strip Rhythm Strip: Sinus Rhythm Rate: 85 Ectopy: None Radiology Impression Cervical Spine CT 05/05/22 20:03 IMPRESSION: Degenerative changes of the cervical spine without acute fracture or subluxation. Note: MRI is more sensitive than CT in detecting cord injury, ligamentous injury and epidural hematoma. If there is continued clinical concern for any of these entities, MRI should be considered. Electronically Signed: Hernando SvetaDO at 21:16 EST Reading Location [facility] and State: [facility] Tel [phone], Service support , Chest X-Ray 05/05/22 20:45 IMPRESSION: Degenerative changes, as described above. No demonstrated acute cardiopulmonary process. Electronically Signed: Hernando BanguraDO at 21:18 EST Reading Location ID and State: [place] / [employer] Tel [phone], Service support , Foot X-Ray 05/05/22 20:45 IMPRESSION: Mild arthrosis of the foot. There is no acute fracture or dislocation. Electronically Signed: Hernando BanguraDO at 21:17 EST Reading Location ID and State: [place] [facility] [employer] [employer] [facility] Tel [phone], Service support , Chest CTA 05/05/22 21:13 IMPRESSION: No evidence of pulmonary embolism. Mild peribronchial thickening with layering fluid or debris in some right lower lung bronchi compatible with bronchitis/bronchiolitis. Scattered Tree-in-bud centrilobular nodularity in the left lower lung may scattered aspirate or atypical infection. Largest nodule 8mm groundglassdd nodule with 4 mm solid component. 3 month follow-up CT recommended. Electronically Signed: Sukhdeep Bustamante MD at 22:22 EST , Assessment & Plan Assessment/Plan (1) Recurrent syncope: (2) Transient hypotension: PLAN: Plan 1. Syncope/ERICA ? This does appear to be vasovagal based on the history ? We will obtain orthostatic vital signs ? Continue with IV fluids given her ERICA. Baseline creatinine is around 0.6 and currently she is 1.5 ? We will monitor her on telemetry 2. HTN/HLD ? Blood pressures were a little bit on the soft side in the ER ? Given the ERICA will hold her lisinopril ? Continue with Lipitor 3. COPD ? Not in exacerbation ? Continue with her home inhalers ? CT scan is positive for bronchiolitis with tree-in-bud appearance, if leukocytosis does not resolve on repeat testing may benefit from possible antibiotics 4. Chronic pain/anxiety/depression ? Continue with her home medications 5. Hypothyroidism ? Stable ? Continue with Synthroid 6. GERD ? Stable ? Continue with PPI DVT: Ambulation Charges/Coding Visit Charges OBSV E&M: 67417 Initial observation care L2
[2022-05-05 23:44] VITALS: BP 106/75; PULSE 85; RESP 14; TEMP 36.8; O2SAT 97
[2022-05-06] VITALS (10 sets, daily range): BP systolic 95–137; BP diastolic 62–99; PULSE 75–90; RESP 16–18; TEMP 36.4–37; O2SAT 92–99; BMI 21.6
[2022-05-06] MEDS: 0.9% Normal Saline 1,000 ML 100 ML IV ×2 (01:12→09:03)
[2022-05-06 04:53] LABS: Absolute Lymphocyte Count 2.09 X10^3/uL (0.83-4.51); Absolute Neutrophil Count 5.7 X10^3/uL (2.0-7.7); Basophil# 0.06 X10^3/uL; Basophil% 0.7 % (0-1); Eosinophil# 0.22 X10^3/uL; Eosinophils% 2.4 % (0-5); Hemoglobin 11.9 g/dL (12.0-15.0); Lymphocyte # 2.09 X10^3/ul (0.83-4.51); Lymphocyte % 23.2 % (19-41); Mean Corpuscular Hgb 32.2 pg (27.0-32.0); Mean Corpuscular Volume 92.1 fL (81-99); Mean Platelet Vol. 10.7 fl (6.2-12.0); Monocyte# 0.85 X10^3/uL; Monocyte% 9.5 % (0-10); NRBC Flagged by Analyzer 0 % (0-5); Neutrophil # 5.74 X10^3/uL (2.7-7.7); Neutrophil % 63.9 % (47-70); Platelet Count 226 K/mm3 (150-450); RBC Distribution Width CV 12.1 % (11.6-14.6); RBC Distribution Width SD 41.2 fl (35.1-43.9); Red Blood Count 3.69 M/mm3 (4.2-5.4)
[2022-05-06 05:33] LABS: Anion Gap 7 (5-15); BUN 18 mg/dL (7-18); BUN/Creat Ratio 21.8 RATIO (10-20); Calcium,Total 8.6 mg/dL (8.5-10.1); Chloride 106 mmol/L (98-107); Creatinine, Serum 0.83 mg/dL (0.55-1.02); EST Glomerular Filtration Rate 77 mL/min (>60); Est Glom Filt Rate - Afr Amer 93 mL/min (>60); Estimated Creatinine Clearance 80.98 ml/min; Glucose 96 mg/dL (74-106); Potassium 3.1 mmol/L (3.5-5.1); Sodium Level 137 mmol/L (136-145)
[2022-05-06] MEDS: Levothyroxine 25 MCG TABLET PO (05:51)
[2022-05-06] MEDS: Pregabalin 75 MG Capsule 150 MG PO ×2 (05:51→13:47)
[2022-05-06] MEDS: Pantoprazole Sodium 20 MG Tablet PO (08:53)
[2022-05-06] MEDS: buPROPion (SR) 150 MG Tablet.SA PO (08:53)
[2022-05-06] MEDS: Thiamine Hydrochloride 100 MG Tablet 50 MG PO (08:54)
[2022-05-06] MEDS: Baclofen 10 MG Tablet PO (08:54)
[2022-05-06] MEDS: FLUoxetine 20 MG Capsule 60 MG PO (08:54)
[2022-05-06] MEDS: Potassium Chloride Oral Tablet 20 MEQ 60 MEQ PO (10:06)
[2022-05-06] MEDS: Ferrous Sulfate 325 MG Tablet PO (11:35)
--- NOTE | 2022-05-06 14:09 | DCINST_ITS ---
Discharge Instructions Diet Discharge Diet: No restrictions Activity Discharge Activity: Return to Normal Activity Follow Up Care Test Results: Test results from this visit will be discussed in further detail at your follow- up appointment, if applicable. Discharge Plan Admission Admit Date/Time: 05/05/22 23:27 Primary Reason for Your Visit: Episode of passing out Attending Provider: Virginia Araujo Primary Care Provider: Memo Chairez Consulting Providers: Dane Riddle Instructions Patient Instructions: ED Hypotension, Orthostatic Additional Instructions / Restrictions: *Please take this with you to your next doctors appointment* ?Recommend you take Your baclofen dose twice daily as this may contribute to the drop in blood pressure ?Your lisinopril has been held due to your drop in blood pressure and dehydration. Recommend you hold this until your follow-up appointment with your primary care physician. ?It is advised to hold your Flexeril (cyclobenzaprine) as well as this could also contribute to your blood pressure. Please discuss this with your primary care physician at your hospital follow-up ?It is important that you stay hydrated -Please call your primary care provider's office upon discharge to schedule a hospital follow up within 1 week. -For any concerning signs or symptoms please call 911 or proceed to the nearest emergency department Discharge Orders/Prescriptions Prescriptions: Continued omeprazole 20 mg capsule,delayed release(DR/EC) 20 mg PO DAILY thiamine HCl (vitamin B1) 50 mg tablet 50 mg PO DAILY sofosbuvir-velpatasvir 400-100 mg tablet 1 tab PO bupropion HCl [Wellbutrin SR] 150 mg Tablet Sustained-Release 12 Hr 150 mg PO DAILY levothyroxine 25 mcg Tablet 25 mcg PO DAILY famotidine 20 mg Tablet 20 mg PO QHS ferrous sulfate 325 mg (65 mg iron) Tablet 325 mg PO BID fluoxetine 60 mg Tablet 60 mg PO DAILY Spiriva Respimat 2.5 mcg/actuation Mist 2 puff INHALATION DAILY pregabalin [Lyrica] 150 mg capsule 150 mg PO TID atorvastatin 40 mg tablet 40 mg PO QHS cholecalciferol (vitamin D3) [Vitamin D3] 25 mcg (1,000 unit) Capsule 25 mcg PO DAILY albuterol sulfate 2.5 mg /3 mL (0.083 %) solution for nebulization 2.5 mg inhalation Q6H PRN PRN (Reason: Shortness Of Breath Or Wheezing) albuterol sulfate [Ventolin HFA] 90 mcg/actuation HFA aerosol inhaler 1 puff INHALATION Q4H PRN PRN (Reason: Shortness Of Breath Or Wheezing) trazodone 50 mg Tablet 50 mg PO QHS metronidazole 500 mg Tablet 500 mg PO BID melatonin 10 mg Tablet 10 mg PO QHS Changed baclofen 10 mg Tablet 5 mg PO BID Qty: 30 0RF Held lisinopril 20 mg Tablet 20 mg PO DAILY Hold Instructions: Resume on 05/13/22. Please hold until your follow-up with your primary care physician, please discuss this with your PCP at your hospital follow-up Discontinued cyclobenzaprine 10 mg tablet 10 mg PO TID PRN (Reason: muscle spasm) Qty: 3 0RF Referrals / Follow Up: Memo Chairez MD [Primary Care Provider] - Within 1 Week Disposition Disposition (needs filled in before D/C Order can be placed): Home, Self Care
--- NOTE | 2022-05-06 14:18 | PCM.DC.SUM ---
Providers Date of Admission: 05/05/22 Date of Discharge: 05/06/22 Primary Care Physician: Dr. Memo Chairez MD Reason For Visit: SYNCOPE Diagnosis Discharge Diagnosis (1) Recurrent syncope: Status: Acute Code(s): R55 - Syncope and collapse (2) Transient hypotension: Status: Acute Code(s): I95.9 - Hypotension, unspecified Plan 1. Syncope secondary to orthostatic hypotension 2. ERICA?resolved 3. Hypertension 4. Her lipidemia 5. COPD 6. chronic pain/anxiety/depression 7. Hypothyroidism 8. GERD Medications at Discharge Home Medications bupropion HCl 150 mg tablet,12 hr sustained-release (Wellbutrin SR) 150 mg PO DAILY depression 04/30/21 famotidine 20 mg tablet 20 mg PO QHS gerd 04/30/21 ferrous sulfate 325 mg (65 mg iron) tablet 325 mg PO BID supplement 04/30/21 fluoxetine 60 mg tablet 60 mg PO DAILY anxiety 04/30/21 levothyroxine 25 mcg tablet 25 mcg PO DAILY hypothyroid 04/30/21 lisinopril 20 mg tablet 20 mg PO DAILY BP 04/30/21 tiotropium bromide 2.5 mcg/actuation mist for inhalation (Spiriva Respimat) 2 puff inhalation DAILY COPD 04/30/21 pregabalin 150 mg capsule (Lyrica) 150 mg PO TID pain 05/03/21 albuterol sulfate 2.5 mg/3 mL (0.083 %) solution for nebulization 2.5 mg inhalation Q6H PRN PRN Shortness Of Breath Or Wheezing 10/12/21 albuterol sulfate 90 mcg/actuation aerosol inhaler (Ventolin HFA) 1 puff inhalation Q4H PRN PRN Shortness Of Breath Or Wheezing 10/12/21 cholecalciferol (vitamin D3) 25 mcg (1,000 unit) capsule (Vitamin D3) 25 mcg PO DAILY 10/12/21 melatonin 10 mg tablet 10 mg PO QHS 01/21/22 metronidazole 500 mg tablet 500 mg PO BID 01/21/22 trazodone 50 mg tablet 50 mg PO QHS 01/21/22 atorvastatin 40 mg tablet 40 mg PO QHS cholesterol 02/03/22 sofosbuvir 400 mg-velpatasvir 100 mg tablet 1 tab PO 03/18/22 omeprazole 20 mg capsule,delayed release 20 mg PO DAILY 03/25/22 thiamine HCl (vitamin B1) 50 mg tablet 50 mg PO DAILY 03/25/22 baclofen 10 mg tablet 5 mg PO BID pain #30 tabs 05/06/22 Hospital Course Summary of Care Provided Minutes Spent on Discharge: 20 Hospital Course: Sheila Garcia is a 52-year-old female with a history of COPD, chronic pain, restless legs, anxiety, depression who presented to [facility] 05/05 with an episode of passing out. She sometimes will get dizzy when going from sitting to standing and had poor p.o. intake with more concentrated urine. She was orthostatic positive and had an ERICA, she was given fluids and her kidney function and symptoms improved significantly. Orthostatics were still positive but improved and she had no symptoms when they were performed. Suspect it was a combination of dehydration with medication. Discussed risks and benefits of leaving today with increased hydration at home and medication changes versus monitoring 1 more night with repeat orthostats and she preferred to go home with close follow-up with her PCP. Given she is not symptomatic and has been up moving around room without difficulty feel this is reasonable. Instructions given to patient as below: *Please take this with you to your next doctors appointment* ?Recommend you take Your baclofen dose twice daily as this may contribute to the drop in blood pressure ?Your lisinopril has been held due to your drop in blood pressure and dehydration.? Recommend you hold this until your follow-up appointment with your primary care physician. ?It is advised to hold your Flexeril (cyclobenzaprine) as well as this could also contribute to your blood pressure.? Please discuss this with your primary care physician at your hospital follow-up ?It is important that you stay hydrated -Please call your primary care provider's office upon discharge to schedule a hospital follow up within 1 week. -For any concerning signs or symptoms please call 911 or proceed to the nearest emergency department Physical Exam Const alert and no apparent distress Constitutional Narrative: Oriented HEENT normocephalic and head/scalp atraumatic Eyes Eyes Narrative: EOM grossly intact, anicteric Neck supple Resp normal respiratory effort and clear to auscultation bilaterally Cardio regular rate and regular rhythm GI soft to palpation, non-tender and non-distended Extremity Extremity Narrative: No edema appreciated Neuro moves all extremities Neuro Narrative: No overt focal deficits appreciated Psych Psych Narrative: Cooperative Weight / BMI Weight Weight: 66.4 kg Body Mass Index (BMI) 21.6 ABG / Lab / Microbiology Data Result Diagrams: 05/06/22 04:29 05/06/22 04:29 Laboratory: Laboratory Results - last 24 hr 05/05/22 20:15: WBC 15.6 H, RBC 3.95 L, Hgb 12.2, Hct 36.3 L, MCV 91.9, MCH 30.9, MCHC 33.6, RDW Std Deviation 41.0, RDW Coeff of Sandeep 12.1, Plt Count 283, MPV 11.1, Immature Gran % (Auto) 0.500, Neut % (Auto) 76.7 H, Lymph % (Auto) 12.9 L, Crook % (Auto) 8.3, Eos % (Auto) 1.2, Baso % (Auto) 0.4, Absolute Neuts (auto) 12.0 H, Absolute Lymphs (auto) 2.01, Nucleated RBC % 0 05/05/22 20:15: PT 13.5, INR 1.1, APTT 32.1, D-Dimer Quant (PE/DVT) 0.82 H* 05/05/22 20:15: Sodium 134 L, Potassium 3.5, Chloride 100, Carbon Dioxide 25.0, Anion Gap 9, BUN 20 H, Creatinine 1.49 H, Estim Creat Clear Calc 45.11, Est GFR (MDRD) Af Amer 47 L, Est GFR (MDRD) Non-Af 39 L, BUN/Creatinine Ratio 13.4, Glucose 104, Calcium 8.7, Total Bilirubin 0.30, AST 15, ALT 18, Alkaline Phosphatase 57, Troponin I High Sens 6, Total Protein 7.1, Albumin 3.4, Globulin 3.7, Albumin/Globulin Ratio 0.9 05/05/22 20:15: Lactic Acid 1.0 05/05/22 20:15: Ethyl Alcohol < 3.0 05/05/22 22:54: Urine Opiates Screen NEGATIVE, Urine Methadone Screen NEGATIVE, Ur Barbiturates Screen NEGATIVE, Ur Phencyclidine Scrn NEGATIVE, Ur Amphetamines Screen POSITIVE H, MDMA (Ecstasy) Screen POSITIVE H, U Benzodiazepines Scrn NEGATIVE, Urine Cocaine Screen NEGATIVE, U Cannabinoids Screen POSITIVE H, Ur Drug Screen Comment 05/05/22 22:54: Urine Color Yellow, Urine Clarity Clear, Urine pH 6.0, Ur Specific [place] 1.010, Urine Protein 15 H, Urine Glucose (UA) Normal, Urine Ketones Negative, Urine Occult Blood Negative, Urine Nitrite Negative, Urine Bilirubin Negative, Urine Urobilinogen Normal, Ur Leukocyte Esterase 500 H, Urine RBC 0 SEEN, Urine WBC 10-25 SEEN, Ur Squamous Epith Cells 0-5 SEEN, Urine Bacteria RARE, Urine Mucus 0 SEEN 05/06/22 04:29: WBC 9.0, RBC 3.69 L, Hgb 11.9 L, Hct 34.0 L, MCV 92.1, MCH 32.2 H, MCHC 35.0, RDW Std Deviation 41.2, RDW Coeff of Sandeep 12.1, Plt Count 226, MPV 10.7, Immature Gran % (Auto) 0.300, Neut % (Auto) 63.9, Lymph % (Auto) 23.2, Cro[place] % (Auto) 9.5, Eos % (Auto) 2.4, Baso % (Auto) 0.7, Absolute Neuts (auto) 5.7, Absolute Lymphs (auto) 2.09, Nucleated RBC % 0 05/06/22 04:29: Sodium 137, Potassium 3.1 L, Chloride 106, Carbon Dioxide 24.0, Anion Gap 7, BUN 18, Creatinine 0.83, Estim Creat Clear Calc 80.98, Est GFR (MDRD) Af Amer 93, Est GFR (MDRD) Non-Af 77, BUN/Creatinine Ratio 21.8 H, Glucose 96, Calcium 8.6 Microbiology: Microbiology 05/05/22 22:54 Urine, Clean Catch Urine Culture - Preliminary Culture exhibits no growth. Radiography Diagnostic Testing: Radiology Impression Cervical Spine CT 05/05/22 20:03 IMPRESSION: Degenerative changes of the cervical spine without acute fracture or subluxation. Note: MRI is more sensitive than CT in detecting cord injury, ligamentous injury and epidural hematoma. If there is continued clinical concern for any of these entities, MRI should be considered. Electronically Signed: Hernando Bangura DO at 21:16 EST Reading Location ID and State: [address] [place] [address] Tel [phone], Service support , Chest X-Ray 05/05/22 20:45 IMPRESSION: Degenerative changes, as described above. No demonstrated acute cardiopulmonary process. Electronically Signed: Hernando Bangura DO at 21:18 EST Reading Location ID and State: [address] [place] [address] Tel [phone], Service support , Foot X-Ray 05/05/22 20:45 IMPRESSION: Mild arthrosis of the foot. There is no acute fracture or dislocation. Electronically Signed: Hernando Bangura DO at 21:17 EST Reading Location ID and State: [address] [place] [address] Tel [phone], Service support , Chest CTA 05/05/22 21:13 IMPRESSION: No evidence of pulmonary embolism. Mild peribronchial thickening with layering fluid or debris in some right lower lung bronchi compatible with bronchitis/bronchiolitis. Scattered Tree-in-bud centrilobular nodularity in the left lower lung may scattered aspirate or atypical infection. Largest nodule 8mm groundglassdd nodule with 4 mm solid component. 3 month follow-up CT recommended. Electronically Signed: Sukhdeep Bustamante MD at 22:22 EST , D/C Instructions Discharge Diet: No restrictions Meaningful Use Info Meaningful Use Diagnoses (Choose all that apply): None applicable Discharge Plan Admission Admit Date/Time: 05/05/22 23:27 Primary Reason for Your Visit: Episode of passing out Attending Provider: Virginia Araujo Primary Care Provider: Memo Chairez Consulting Providers: Dane Riddle Instructions Patient Instructions: ED Hypotension, Orthostatic Additional Instructions / Restrictions: *Please take this with you to your next doctors appointment* ?Recommend you take Your baclofen dose twice daily as this may contribute to the drop in blood pressure ?Your lisinopril has been held due to your drop in blood pressure and dehydration. Recommend you hold this until your follow-up appointment with your primary care physician. ?It is advised to hold your Flexeril (cyclobenzaprine) as well as this could also contribute to your blood pressure. Please discuss this with your primary care physician at your hospital follow-up ?It is important that you stay hydrated -Please call your primary care provider's office upon discharge to schedule a hospital follow up within 1 week. -For any concerning signs or symptoms please call 911 or proceed to the nearest emergency department Discharge Orders/Prescriptions Prescriptions: Continued omeprazole 20 mg capsule,delayed release(DR/EC) 20 mg PO DAILY thiamine HCl (vitamin B1) 50 mg tablet 50 mg PO DAILY sofosbuvir-velpatasvir 400-100 mg tablet 1 tab PO bupropion HCl [Wellbutrin SR] 150 mg Tablet Sustained-Release 12 Hr 150 mg PO DAILY levothyroxine 25 mcg Tablet 25 mcg PO DAILY famotidine 20 mg Tablet 20 mg PO QHS ferrous sulfate 325 mg (65 mg iron) Tablet 325 mg PO BID fluoxetine 60 mg Tablet 60 mg PO DAILY Spiriva Respimat 2.5 mcg/actuation Mist 2 puff INHALATION DAILY pregabalin [Lyrica] 150 mg capsule 150 mg PO TID atorvastatin 40 mg tablet 40 mg PO QHS cholecalciferol (vitamin D3) [Vitamin D3] 25 mcg (1,000 unit) Capsule 25 mcg PO DAILY albuterol sulfate 2.5 mg /3 mL (0.083 %) solution for nebulization 2.5 mg inhalation Q6H PRN PRN (Reason: Shortness Of Breath Or Wheezing) albuterol sulfate [Ventolin HFA] 90 mcg/actuation HFA aerosol inhaler 1 puff INHALATION Q4H PRN PRN (Reason: Shortness Of Breath Or Wheezing) trazodone 50 mg Tablet 50 mg PO QHS metronidazole 500 mg Tablet 500 mg PO BID melatonin 10 mg Tablet 10 mg PO QHS Changed baclofen 10 mg Tablet 5 mg PO BID Qty: 30 0RF Held lisinopril 20 mg Tablet 20 mg PO DAILY Hold Instructions: Resume on 05/13/22. Please hold until your follow-up with your primary care physician, please discuss this with your PCP at your hospital follow-up Discontinued cyclobenzaprine 10 mg tablet 10 mg PO TID PRN (Reason: muscle spasm) Qty: 3 0RF Referrals / Follow Up: Memo Chairez MD [Primary Care Provider] - Within 1 Week Disposition Disposition (needs filled in before D/C Order can be placed): Home, Self Care Charges/Coding Visit Charges OBSV E&M: 92508 Observation care discharge
== END 2022-05-06 14:17 | disposition home or self-care (01) ==
LOC: ED 23:01 → PCU 23:44
PROVIDERS: Admitting Provider Family Medicine; Emergency Provider Emergency Medicine; PCP Family Medicine; Visit Provider Internal Medicine
DX: I95.1 Orthostatic hypotension (principal); N17.9 Acute kidney failure, unspecified; J44.9 Chronic obstructive pulmonary disease, unspecified; S16.1XXA Strain of muscle, fascia and tendon at neck level, initial encounter; E78.00 Pure hypercholesterolemia, unspecified; F17.210 Nicotine dependence, cigarettes, uncomplicated; E86.0 Dehydration; S90.31XA Contusion of right foot, initial encounter; I10 Essential (primary) hypertension; F41.9 Anxiety disorder, unspecified; D64.9 Anemia, unspecified; G89.29 Other chronic pain; Z79.899 Other long term (current) drug therapy; Z79.890 Hormone replacement therapy; F32.A Depression, unspecified; Z99.81 Dependence on supplemental oxygen; Z86.711 Personal history of pulmonary embolism; K21.9 Gastro-esophageal reflux disease without esophagitis; W19.XXXA Unspecified fall, initial encounter
CPT/HCPCS: 36415; 71045; 71275; 72125; 73630; 80048; 80053; 80307; 81001; 82077; 83605; 84484; 85025; 85379; 85610; 85730; 87040; 87086; 87088; 93005; 96360; 96361; 97802; 99218; 99285; J7030; Q9967; A4216; G0378

== ENCOUNTER 2022-06-05 17:36 | Emergency (ER) | payer MEDICAID, SELFPAY ==
[2022-06-05 17:37] VITALS: BP 155/103; PULSE 74; RESP 18; TEMP 36.7; O2SAT 100; BMI 24.0
--- NOTE | 2022-06-05 19:02 | EKG12_ITS ---
Test Reason : DYSRHYTHMIA Blood Pressure : / mmHG Vent. Rate : 064 BPM Atrial Rate : 064 BPM P-R Int : 192 ms QRS Dur : 104 ms QT Int : 434 ms P-R-T Axes : 069 020 065 degrees QTc Int : 447 ms Normal sinus rhythm Normal ECG Confirmed by RICCI BLACKWELL, BIBIANA ([id number]), features editor DOYLE BAZZI ([id number]) on 06/07/2022 12:47:21 PM Referred By: MAXIMILIAN Confirmed By:BIBIANA WYNNE MD
--- NOTE | 2022-06-05 19:02 | RAD_ITS ---
INDICATION: chest pain EXAMINATION/TECHNIQUE: X-RAY - XR Chest 1 View COMPARISON: None. FINDINGS: Streaky opacities in the left lung base. Tortuous and calcified thoracic aorta. The heart is not enlarged. No pleural effusion or pneumothorax. Degenerative changes of the thoracic spine. RAD/Chest 1 View (Portable) IMPRESSION: Streaky opacities in left lung base could represent atelectasis versus infection. Electronically Signed: Fady Mcgarry MD at 19:43 EST ,
--- NOTE | 2022-06-05 19:03 | EDS_ITS ---
HPI History of Present Illness Chief Complaint: Back Narrative Narrative: 52-year-old female presenting with chest pain. She states is a constant ache in her chest and hurts all over. It radiates posteriorly. She does admit to some shortness of breath. Patient has history of COPD and is still a smoker. 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 She denies fever, chills, myalgias. She does have a chronic cough. She states the color of her sputum has changed slightly. It looks a little greater now. She states she has a history of a lung abscess in the past. She thinks she may have been on a blood thinner for history of PE but cannot remember the name of the medication. [facility] Medical History Acute cholecystitis Acute hyponatremia Acute pancreatitis Alcohol abuse Alcohol withdrawal Ambulates with cane Anemia Anemia of unknown etiology Anxiety Arthritis Chronic pain COPD (chronic obstructive pulmonary disease) Depression Desire for detoxification Distal radius fracture, right Easy bruising Elevated LFTs Excessive bleeding Gastric reflux High cholesterol History of edema Hyperglycemia Hypertension Hypothyroidism Marijuana use On home oxygen therapy Pulmonary embolism Pulmonary embolism Recurrent syncope Renal insufficiency Restless legs Shortness of breath on exertion Sleep apnea Smoker Transient hypotension Walker as ambulation aid Wears glasses Home Medications bupropion HCl 150 mg tablet,12 hr sustained-release (Wellbutrin SR) 150 mg PO DAILY depression 04/30/21 [History Last Taken 04/30/21] famotidine 20 mg tablet 20 mg PO QHS gerd 04/30/21 [History Last Taken 04/29/21] ferrous sulfate 325 mg (65 mg iron) tablet 325 mg PO BID supplement 04/30/21 [History Last Taken 04/30/21] fluoxetine 60 mg tablet 60 mg PO DAILY anxiety 04/30/21 [History Last Taken 04/30/21] levothyroxine 25 mcg tablet 25 mcg PO DAILY hypothyroid 04/30/21 [History Last Taken 04/30/21] tiotropium bromide 2.5 mcg/actuation mist for inhalation (Spiriva Respimat) 2 puff inhalation DAILY COPD 04/30/21 [History Last Taken 01/22/22] pregabalin 150 mg capsule (Lyrica) 150 mg PO TID pain 05/03/21 [History Last Taken Unknown] albuterol sulfate 2.5 mg/3 mL (0.083 %) solution for nebulization 2.5 mg inhalation Q6H PRN PRN Shortness Of Breath Or Wheezing 10/12/21 [History Last Taken 01/22/22] albuterol sulfate 90 mcg/actuation aerosol inhaler (Ventolin HFA) 1 puff inhalation Q4H PRN PRN Shortness Of Breath Or Wheezing 10/12/21 [History Last Taken Unknown] cholecalciferol (vitamin D3) 25 mcg (1,000 unit) capsule (Vitamin D3) 25 mcg PO DAILY vitamin 10/12/21 [History Last Taken Unknown] melatonin 10 mg tablet 10 mg PO QHS sleep 01/21/22 [History Last Taken Unknown] atorvastatin 40 mg tablet 40 mg PO QHS cholesterol 02/03/22 [History Last Taken Unknown] sofosbuvir 400 mg-velpatasvir 100 mg tablet 1 tab PO infection 03/18/22 [History Last Taken Unknown] omeprazole 20 mg capsule,delayed release 20 mg PO DAILY reflux 03/25/22 [History Last Taken Unknown] thiamine HCl (vitamin B1) 50 mg tablet 50 mg PO DAILY vitamin 03/25/22 [History Last Taken Unknown] baclofen 10 mg tablet 5 mg PO BID pain #30 tabs 05/06/22 [Rx Last Taken 04/30/21] doxycycline monohydrate 100 mg capsule 100 mg PO BID #14 caps 06/05/22 [Rx Last Taken Unknown] prednisone 50 mg tablet 50 mg PO DAILY #5 tabs 06/05/22 [Rx Last Taken Unknown] Allergy/AdvReac Type Severity Reaction Status Date / Time fentanyl Allergy Anaphylaxis Verified 06/05/22 17:40 varenicline [From Chantix] AdvReac hallucinati Verified 06/05/22 17:40 ons Family History Other Cancer Surgical History H/O skin graft H/O: hysterectomy Hx of cholecystectomy Hx of tonsillectomy Social History household members: none Smoking Status: Current every day smoker tobacco type: cigarettes alcohol intake: former substance use type: marijuana additional social history: disabled ROS ROS ED Constitutional Constitutional ED: Denies chills or fever(s) Eyes Eyes: Denies change in vision or diplopia ENT ENT ED: Denies rhinorrhea or sore throat Cardiovascular Cardiovascular: Reports chest pain; Denies palpitations Respiratory/Chest Respiratory/Chest: Reports cough and dyspnea Gastrointestinal Gastrointestinal: Denies abdominal pain, melena or nausea Genitourinary Genitourinary ED: Denies dysuria or hematuria Musculoskeletal Musculoskeletal: Reports back pain Integumentary Denies rash Neurologic Neurologic: Denies headache(s) or paresthesias Psychiatric Psychiatric: Denies anxiety or depression EXAM Physical Exam Const Vital Signs: 06/05/22 17:37 06/05/22 19:31 06/05/22 20:00 Temperature 98.1 F Temperature Source Oral Pulse Rate 74 74 Respiratory Rate 18 17 Respiratory Effort Respiratory Depth Respiratory Pattern Blood Pressure 155/103 H 152/97 H Blood Pressure Mean 120 115 Pulse Ox 100 92 Oxygen Delivery Method Room Air Room Air Room Air 06/05/22 19:16 06/05/22 19:16 06/05/22 21:53 Temperature Temperature Source Pulse Rate 75 72 Respiratory Rate 16 18 Respiratory Effort Normal Short of Breath Respiratory Depth Normal Respiratory Pattern Normal Normal Blood Pressure 164/102 H Blood Pressure Mean Pulse Ox 97 Oxygen Delivery Method Room Air Positive well nourished General Appearance ED: NAD; Negative for pallor HEENT Reports moist mucous membranes Eyes PERRL and EOMs intact bilaterally Neck no lymphadenopathy Chest Wall inspection of chest normal and palpation of chest normal Resp normal respiratory effort Auscultation: wheezes expiratory wheezes Cardio regular rate and regular rhythm GI normal to inspection, nondistended, normoactive bowel sounds Extremity normal to inspection Neuro oriented x3 and CN's II-XII intact bilaterally Sensorium / Orientation: alert Motor Exam: strength 5/5 throughout Psych mental status grossly normal Skin no rashes or lesions noted General Skin Exam: Negative for jaundice or pallor MDM MDM MDM Narrative Medical decision making narrative: Presenting with shortness of breath for the last couple of days. She not had a fever, chills, body aches. She does states she has COPD and she smokes cigarettes. Patient is wheezing on exam. She is also complaining of some chest tightness which is diffuse and all over her ribs bilaterally and radiates to the back. She states this has been constant for a few days. Her EKG on my interpretation shows a normal sinus rhythm with a ventricular rate of 64 bpm without sign of ischemic change or dysrhythmia. Her high-sensitivity phone is 6. Given that it has been constant for days at home continue to delta troponin. Chest x-ray my interpretation shows a possible left lower lobe infiltrate versus atelectasis. The radiologist are persistent and agrees. Her CBC does not show and white blood cell count. Hemoglobin hematocrit are stable. Platelets are normal. Creatinine slightly elevated today at 1.12. Electrolytes are normal. D-dimer negative. Patient feeling improved on reevaluation. I will cover her with doxycycline and she will be placed on a prednisone burst. She is amenable to this. Return precautions discussed. Impression: 1. Chest pain 2. COPD exacerbation Lab Data Attestation: I reviewed the patient's lab results. Labs: Laboratory Results - last 24 hr 06/05/22 06/05/22 06/05/22 19:25 19:25 19:25 WBC 5.9 RBC 4.39 Hgb 13.6 Hct 40.0 MCV 91.1 MCH 31.0 MCHC 34.0 RDW Std Deviation 40.8 RDW Coeff of Sandeep 12.2 Plt Count 231 MPV 11.0 Immature Gran % (Auto) 0.200 Neut % (Auto) 46.0 L Lymph % (Auto) 38.2 [place] % (Auto) 10.8 H Eos % (Auto) 4.0 Baso % (Auto) 0.8 Absolute Neuts (auto) 2.7 Absolute Lymphs (auto) 2.27 Nucleated RBC % 0 D-Dimer Quant (PE/DVT) 0.46 Sodium 136 Potassium 3.6 Chloride 105 Carbon Dioxide 27.0 Anion Gap 4 L BUN 27 H Creatinine 1.12 H Estim Creat Clear Calc 57.93 Est GFR (MDRD) Af Amer 65 Est GFR (MDRD) Non-Af 54 L BUN/Creatinine Ratio 24.1 H Glucose 87 Calcium 9.1 Troponin I High Sens 6 Radiography Diagnostic Testing: Clinical Impression(s) from Imaging Studies Chest X-Ray 06/05/22 19:02 IMPRESSION: Streaky opacities in left lung base could represent atelectasis versus infection. Electronically Signed: Fady Mcgarry MD at 19:43 EST , Discharge Plan Triage Chief Complaint: Back ED Provider: Agustin Silva Dx/Rx/DC Orders Instructions: ED COPD Flare Prescriptions: New prednisone 50 mg tablet 50 mg PO DAILY Qty: 5 0RF doxycycline monohydrate 100 mg capsule 100 mg PO BID Qty: 14 0RF No Action omeprazole 20 mg capsule,delayed release(DR/EC) 20 mg PO DAILY thiamine HCl (vitamin B1) 50 mg tablet 50 mg PO DAILY sofosbuvir-velpatasvir 400-100 mg tablet 1 tab PO bupropion HCl [Wellbutrin SR] 150 mg Tablet Sustained-Release 12 Hr 150 mg PO DAILY levothyroxine 25 mcg Tablet 25 mcg PO DAILY famotidine 20 mg Tablet 20 mg PO QHS ferrous sulfate 325 mg (65 mg iron) Tablet 325 mg PO BID fluoxetine 60 mg Tablet 60 mg PO DAILY Spiriva Respimat 2.5 mcg/actuation Mist 2 puff INHALATION DAILY pregabalin [Lyrica] 150 mg capsule 150 mg PO TID atorvastatin 40 mg tablet 40 mg PO QHS cholecalciferol (vitamin D3) [Vitamin D3] 25 mcg (1,000 unit) Capsule 25 mcg PO DAILY albuterol sulfate 2.5 mg /3 mL (0.083 %) solution for nebulization 2.5 mg inhalation Q6H PRN PRN (Reason: Shortness Of Breath Or Wheezing) albuterol sulfate [Ventolin HFA] 90 mcg/actuation HFA aerosol inhaler 1 puff INHALATION Q4H PRN PRN (Reason: Shortness Of Breath Or Wheezing) melatonin 10 mg Tablet 10 mg PO QHS baclofen 10 mg Tablet 5 mg PO BID Qty: 30 0RF Primary Care Provider: Memo Chairez Referrals: Memo Chairez MD [Primary Care Provider] - Disposition Disposition: Home, Self Care Discharge Date/Time: 06/05/22 21:54
[2022-06-05 19:16] VITALS: PULSE 75; RESP 16; RESP 18; O2SAT 97
[2022-06-05] MEDS: Ipratropium/Albuterol Sulfate 3 ML AMPUL.NEB INHALATION (19:16)
[2022-06-05] MEDS: Albuterol 2.5 MG/3 ML VIAL.NEB. INHALATION (19:16)
[2022-06-05] MEDS: Aspirin 81 MG TAB.CHEW 324 MG PO (19:33)
[2022-06-05] MEDS: MethylPREDNISolone 125 MG/2 ML Vial IV (19:33)
[2022-06-05 19:43] LABS: Absolute Lymphocyte Count 2.27 X10^3/uL (0.83-4.51); Absolute Neutrophil Count 2.7 X10^3/uL (2.0-7.7); Basophil# 0.05 X10^3/uL; Basophil% 0.8 % (0-1); Eosinophil# 0.24 X10^3/uL; Hemoglobin 13.6 g/dL (12.0-15.0); Lymphocyte # 2.27 X10^3/ul (0.83-4.51); Lymphocyte % 38.2 % (19-41); Mean Corpuscular Volume 91.1 fL (81-99); Monocyte# 0.64 X10^3/uL; Monocyte% 10.8 % (0-10); NRBC Flagged by Analyzer 0 % (0-5); Neutrophil # 2.73 X10^3/uL (2.7-7.7); Platelet Count 231 K/mm3 (150-450); RBC Distribution Width CV 12.2 % (11.6-14.6); RBC Distribution Width SD 40.8 fl (35.1-43.9); Red Blood Count 4.39 M/mm3 (4.2-5.4); White Blood Count 5.9 K/mm3 (4.4-11.0)
[2022-06-05 19:56] LABS: D-Dimer Quantitative (DVT/PE) 0.46 FEU/ug/m (0.27-0.49)
[2022-06-05 20:00] VITALS: BP 152/97; PULSE 74; RESP 17; O2SAT 92
[2022-06-05 20:01] LABS: Anion Gap 4 (5-15); BUN 27 mg/dL (7-18); BUN/Creat Ratio 24.1 RATIO (10-20); Calcium,Total 9.1 mg/dL (8.5-10.1); Chloride 105 mmol/L (98-107); Creatinine, Serum 1.12 mg/dL (0.55-1.02); EST Glomerular Filtration Rate 54 mL/min (>60); Est Glom Filt Rate - Afr Amer 65 mL/min (>60); Estimated Creatinine Clearance 57.93 ml/min; Glucose 87 mg/dL (74-106); Potassium 3.6 mmol/L (3.5-5.1); Sodium Level 136 mmol/L (136-145); Troponin-I HS 6 pg/mL (3.0-54.0)
--- NOTE | 2022-06-05 20:17 | CPS ---
x1 Albuterol given to pt. in ER as well
[2022-06-05] MEDS: Doxycycline 100 MG CAPSULE PO (21:50)
[2022-06-05 21:53] VITALS: BP 164/102; PULSE 72
== END 2022-06-05 21:54 | disposition home or self-care (01) ==
PROVIDERS: Emergency Provider Student in an Organized Health Care Education/Training Program; PCP Family Medicine; Visit Provider Student in an Organized Health Care Education/Training Program
DX: J44.1 Chronic obstructive pulmonary disease with (acute) exacerbation (principal); E78.00 Pure hypercholesterolemia, unspecified; I10 Essential (primary) hypertension; F17.210 Nicotine dependence, cigarettes, uncomplicated; R07.9 Chest pain, unspecified; Z79.52 Long term (current) use of systemic steroids
CPT/HCPCS: G0463; 71045; 80048; 84484; 85025; 85379; 93005; 94640; 99251; 99285; A4216

== ENCOUNTER 2022-06-24 12:16 | Emergency (ER) | payer MEDICAID, SELFPAY ==
[2022-06-24 12:17] VITALS: BP 154/88; PULSE 79; RESP 18; TEMP 36.5; O2SAT 97; BMI 20.7
--- NOTE | 2022-06-24 13:07 | CT_ITS ---
STUDY: CT BRAIN WITHOUT CONTRAST REASON FOR EXAM: Female, 52 years old. Head injury due to a fall. RADIATION DOSAGE (If Supplied By Facility): CTDIvol = ( 44.99 ) mGy, DLP = ( 829.85 ) mGycm TECHNIQUE: Transaxial CT imaging of the brain was performed without administration of intravenous contrast material. Individualized dose optimization techniques were used for this CT. COMPARISON: Comparison is made with prior study 04/25/2017. FINDINGS: Normal soft tissue structures. Normal calvarium. There is mild cerebral atrophy with widening of the extra-axial spaces and ventricular dilatation. Normal white matter tracts of the cerebral hemispheres. Normal basal ganglia and thalami. Normal brainstem. Normal cerebellum. There is no intracranial hemorrhage. There are no findings of an acute ischemic infarction. Possible opacification of the right maxillary sinus. CT/Brain/Head without Contrast IMPRESSION: Chronic involutional changes of the brain. Partial opacification of right maxillary sinus. Electronically Signed: Kaushik Buck MD at 14:04 EST ,
--- NOTE | 2022-06-24 13:07 | CT_ITS ---
STUDY: CT CERVICAL SPINE WITHOUT CONTRAST REASON FOR EXAM: Female, 52 years old. Cervical pain following a fall. RADIATION DOSAGE (If Supplied By Facility): CTDIvol = ( 17.03 ) mGy, DLP = ( 1207.26 ) mGycm TECHNIQUE: High resolution transaxial imaging was performed without contrast material. Sagittal and coronal images were reconstructed. Individualized dose optimization techniques were used for this CT. COMPARISON: Comparison is made with prior study dated 05/05/2022. FINDINGS: Normal craniovertebral junction. There are degenerative changes of the anterior atlantoaxial articulation. Normal odontoid process. There is straightening of the normal cervical lordosis. Normal vertebral bodies and posterior osseous elements. C2-3: Normal endplates. Normal disc height and morphology. Normal central canal and intervertebral neuroforamina. C3-4: Facet joint osteoarthritis and hypertrophy worse on the left side. C4-5: Minimal anterior listhesis of C4 on C5. Facet joint osteoarthritis and hypertrophy worse on the left side. Uncovertebral arthrosis. Moderate degree of bilateral neural foraminal stenosis. C5-6: Moderate degree of disc space narrowing. Uncovertebral arthrosis. Facet joint osteoarthritis worse on the right side with right neural foraminal stenosis. C6-7: Disc space narrowing. Anterior spondylosis. C7-T1: Normal endplates. Normal disc height and morphology. Normal central canal and intervertebral neuroforamina. Normal visualized soft tissue structures. CT/Spine Cervical without Contras IMPRESSION: Multilevel degenerative changes, as described above. Electronically Signed: Kaushik Buck MD at 14:01 EST ,
--- NOTE | 2022-06-24 13:10 | EDS_ITS ---
HPI HPI - Fall History of Present Illness Chief Complaint: Fall Informant: patient Narrative Narrative: Patient brought in by EMS for evaluation mechanical fall occurring yesterday evening. She is walking from a neighbor outside going down wooden ramp when she slipped. She had a cane with her. Does use a walker if needed. She fell directly on her left hip. Today skin walk therefore brought in by EMS. She denies any anticoagulation medicines. She does not think she hit her head. She wears chronic 2 L oxygen only at night for COPD history. History of alcohol however states she did not drink today she had 2 drinks yesterday after her fall. [facility] Medical History Acute cholecystitis Acute hyponatremia Acute pancreatitis Alcohol abuse Alcohol withdrawal Ambulates with cane Anemia Anemia of unknown etiology Anxiety Arthritis Chronic pain COPD (chronic obstructive pulmonary disease) Depression Desire for detoxification Distal radius fracture, right Easy bruising Elevated LFTs Excessive bleeding Gastric reflux High cholesterol History of edema Hyperglycemia Hypertension Hypothyroidism Marijuana use On home oxygen therapy Pulmonary embolism Pulmonary embolism Recurrent syncope Renal insufficiency Restless legs Shortness of breath on exertion Sleep apnea Smoker Transient hypotension Walker as ambulation aid Wears glasses Home Medications bupropion HCl 150 mg tablet,12 hr sustained-release (Wellbutrin SR) 150 mg PO DAILY depression 04/30/21 [History Last Taken 04/30/21] famotidine 20 mg tablet 20 mg PO QHS gerd 04/30/21 [History Last Taken 04/29/21] ferrous sulfate 325 mg (65 mg iron) tablet 325 mg PO BID supplement 04/30/21 [History Last Taken 04/30/21] fluoxetine 60 mg tablet 60 mg PO DAILY anxiety 04/30/21 [History Last Taken 04/30/21] levothyroxine 25 mcg tablet 25 mcg PO DAILY hypothyroid 04/30/21 [History Last Taken 04/30/21] tiotropium bromide 2.5 mcg/actuation mist for inhalation (Spiriva Respimat) 2 puff inhalation DAILY COPD 04/30/21 [History Last Taken 01/22/22] pregabalin 150 mg capsule (Lyrica) 150 mg PO TID pain 05/03/21 [History Last Taken Unknown] albuterol sulfate 2.5 mg/3 mL (0.083 %) solution for nebulization 2.5 mg inhalation Q6H PRN PRN Shortness Of Breath Or Wheezing 10/12/21 [History Last Taken 01/22/22] albuterol sulfate 90 mcg/actuation aerosol inhaler (Ventolin HFA) 1 puff inhalation Q4H PRN PRN Shortness Of Breath Or Wheezing 10/12/21 [History Last Taken Unknown] cholecalciferol (vitamin D3) 25 mcg (1,000 unit) capsule (Vitamin D3) 25 mcg PO DAILY vitamin 10/12/21 [History Last Taken Unknown] melatonin 10 mg tablet 10 mg PO QHS sleep 01/21/22 [History Last Taken Unknown] atorvastatin 40 mg tablet 40 mg PO QHS cholesterol 02/03/22 [History Last Taken Unknown] sofosbuvir 400 mg-velpatasvir 100 mg tablet 1 tab PO infection 03/18/22 [History Last Taken Unknown] omeprazole 20 mg capsule,delayed release 20 mg PO DAILY reflux 03/25/22 [History Last Taken Unknown] thiamine HCl (vitamin B1) 50 mg tablet 50 mg PO DAILY vitamin 03/25/22 [History Last Taken Unknown] baclofen 10 mg tablet 5 mg PO BID pain #30 tabs 05/06/22 [Rx Last Taken 04/30/21] doxycycline monohydrate 100 mg capsule 100 mg PO BID #14 caps 06/05/22 [Rx Last Taken Unknown] prednisone 50 mg tablet 50 mg PO DAILY #5 tabs 06/05/22 [Rx Last Taken Unknown] Allergy/AdvReac Type Severity Reaction Status Date / Time fentanyl Allergy Anaphylaxis Verified 06/24/22 12:21 varenicline [From Chantix] AdvReac hallucinati Verified 06/24/22 12:21 ons Family History Other Cancer Surgical History H/O skin graft H/O: hysterectomy Hx of cholecystectomy Hx of tonsillectomy Social History household members: none Smoking Status: Current every day smoker tobacco type: cigarettes alcohol intake: former substance use type: marijuana additional social history: disabled ROS ROS ED Constitutional Constitutional ED: Denies chills, fever(s) or sweats Eyes Eyes: Denies change in vision ENT ENT ED: Denies dysphagia or sore throat Cardiovascular Cardiovascular: Denies chest pain, leg edema, palpitations or racing heartbeat Respiratory/Chest Respiratory/Chest: Denies cough, dyspnea or dyspnea on exertion Gastrointestinal Gastrointestinal: Denies abdominal pain, diarrhea, nausea or vomiting Genitourinary Genitourinary ED: Denies dysuria, hematuria or urinary frequency Musculoskeletal Musculoskeletal: Reports extremity pain and other Details: Left hip pain ; Denies back pain or neck pain Integumentary Denies rash or wounds Neurologic Neurologic: Denies headache(s), paresthesias or weakness EXAM Physical Exam Const Vital Signs: 06/24/22 12:17 06/24/22 12:32 Temperature 97.7 F L Temperature Source Temporal Pulse Rate 79 Respiratory Rate 18 Respiratory Effort Normal Respiratory Pattern Normal Blood Pressure 154/88 H Blood Pressure Mean 110 Pulse Ox 97 Oxygen Delivery Method Room Air Room Air Positive well nourished and well developed Constitutional Narrative: Patient will be somnolent however awakens up will discuss and answer questions appropriately. General Appearance ED: well developed and NAD HEENT Reports normocephalic, TM's normal bilaterally and moist mucous membranes normocephalic and atraumatic Eyes PERRL, EOMs intact bilaterally and conjunctivae normal General Eye ED: Yes normal appearance of both eyes Neck no lymphadenopathy and supple General: Negative for tenderness Chest Wall inspection of chest normal and palpation of chest normal Chest: Negative for tenderness Resp normal respiratory effort and normal air movement Effort and Inspection: symmetric chest movement; Negative for respiratory distress Cardio regular rate, regular rhythm and no murmurs Peripheral Pulses: pulses 2+ throughout GI normal to inspection, nondistended, normoactive bowel sounds and non-tender Palpation: Negative for guarding or rebound tenderness present Back/Spine no CVA tenderness and no thoracic nor lumbar tenderness Back/Spine Narrative: No midline tenderness or step-offs. Extremity Extremity Narrative: Left lower extremity: There is ecchymosis in the lateral greater trochanteric tenderness at this area and posteriorly. There is ischial tenderness. Negative logroll. Mild tenderness left lower pelvis. No deformities. General Extremety ED: Negative for edema or tenderness General Extremity: Negative for edema Neuro oriented x3, CN's II-XII intact bilaterally and no sensory deficits noted Sensorium / Orientation: awake and alert Skin Skin Narrative: See above MDM MDM MDM Narrative Medical decision making narrative: Patient reported mechanical fall clinically ecchymosis left hip. Differential includes fracture versus contusion. She was somnolent on arrival however will awaken and answer questions appropriately. Unclear if she hit her head. Also possible surgery intracranial bleeds with possible head injury. Due to her pain she is treated IM morphine. Trauma scans head and neck was reviewed by myself and read by radiology negative for acute process. 3 views left hip and pelvis interpreted by myself and read by radiology negative for any fractures. Reviewed of records previous alcohol dependence history more than 1 year ago while admitting to 2 drinks yesterday evening after her fall. Admits to marijuana use occasionally. She is ambling with a walker with no difficulties. She is followed by pain management. Reassured of her injury she will use Tylenol or ibuprofen as needed she is on Lyrica. Discussed if increasing pain control as needed she will call her pain management physician's office for prescription if needed. All questions were answered. Radiography Diagnostic Testing: Clinical Impression(s) from Imaging Studies Brain CT 06/24/22 13:07 IMPRESSION: Chronic involutional changes of the brain. Partial opacification of right maxillary sinus. Electronically Signed: Kaushik Buck MD at 14:04 EST , Cervical Spine CT 06/24/22 13:07 IMPRESSION: Multilevel degenerative changes, as described above. Electronically Signed: Kaushik Buck MD at 14:01 EST , Hip/Pelvis X-Ray 06/24/22 13:45 IMPRESSION: Degenerative changes. No fracture or dislocation. Electronically Signed: Kaushik Buck MD at 14:06 EST , Discharge Plan Triage Chief Complaint: Fall ED Provider: Le,Gregg Dx/Rx/DC Orders Clinical Impression: Contusion of hip, left, COPD (chronic obstructive pulmonary disease), Fall Instructions: ED Hip Contusion Prescriptions: No Action omeprazole 20 mg capsule,delayed release(DR/EC) 20 mg PO DAILY thiamine HCl (vitamin B1) 50 mg tablet 50 mg PO DAILY sofosbuvir-velpatasvir 400-100 mg tablet 1 tab PO bupropion HCl [Wellbutrin SR] 150 mg Tablet Sustained-Release 12 Hr 150 mg PO DAILY levothyroxine 25 mcg Tablet 25 mcg PO DAILY famotidine 20 mg Tablet 20 mg PO QHS ferrous sulfate 325 mg (65 mg iron) Tablet 325 mg PO BID fluoxetine 60 mg Tablet 60 mg PO DAILY Spiriva Respimat 2.5 mcg/actuation Mist 2 puff INHALATION DAILY pregabalin [Lyrica] 150 mg capsule 150 mg PO TID atorvastatin 40 mg tablet 40 mg PO QHS cholecalciferol (vitamin D3) [Vitamin D3] 25 mcg (1,000 unit) Capsule 25 mcg PO DAILY albuterol sulfate 2.5 mg /3 mL (0.083 %) solution for nebulization 2.5 mg inhalation Q6H PRN PRN (Reason: Shortness Of Breath Or Wheezing) albuterol sulfate [Ventolin HFA] 90 mcg/actuation HFA aerosol inhaler 1 puff INHALATION Q4H PRN PRN (Reason: Shortness Of Breath Or Wheezing) melatonin 10 mg Tablet 10 mg PO QHS baclofen 10 mg Tablet 5 mg PO BID Qty: 30 0RF prednisone 50 mg tablet 50 mg PO DAILY Qty: 5 0RF doxycycline monohydrate 100 mg capsule 100 mg PO BID Qty: 14 0RF Primary Care Provider: Memo Chairez Referrals: Memo Chairez MD [Primary Care Provider] - 1 Week if not improving Activity Restrictions/Additional Instructions: CT head and neck negative. Left hip and pelvis x-rays negative. Use walker to help with assistance at home. Use Tylenol 1 g as needed. Call discussed with her pain management doctor if you require more pain control from your hip contusion. Disposition Disposition: Home, Self Care Discharge Date/Time: 06/24/22 14:57
[2022-06-24] MEDS: Morphine 4 MG/ML Syringe IM (13:25)
--- NOTE | 2022-06-24 13:29 | ED.RN ---
PT ASLEEP WHEN THIS RN ENTERS ROOM. PT HAS TO BE WOKEN UP TO ASK PAIN LEVEL. PT BEGINS YELLING AT THIS RN. IT'S A 10 OUT OF 10. THIS RN ATTEMPTS TO GIVE INJECTION ON RT DELTOID. PT COMPLETELY COVERED IN BRUISES. PT STATES MY MEDICATION MAKES ME LOOPY
--- NOTE | 2022-06-24 13:45 | RAD_ITS ---
STUDY: X-RAY - PELVIS AND LEFT HIP REASON FOR EXAM: Female, 52 years old. Left hip pain due to a fall. TECHNIQUE: 3 views of the pelvis and hip. COMPARISON: None. FINDINGS: There is a non-specific bowel gas pattern. Normal visualized soft tissue structures. Normal bilateral iliac wings, sacroiliac joints and visualized sacrum. Normal bilateral superior and inferior pubic rami. Normal pubic symphysis. Normal bilateral ischial tuberosities. Normal visualized femoral head. Normal acetabulum. There is mild articular joint space narrowing of the hip. Disc space narrowing and degenerative changes of the lower lumbar spine. RAD/HIP, UNI W/ Pelvis 2-3 Views IMPRESSION: Degenerative changes. No fracture or dislocation. Electronically Signed: Kaushik Buck MD at 14:06 EST ,
--- NOTE | 2022-06-24 14:32 | ED.RN ---
THIS RN AND GOPI RN WALKED PT. PT CONTINUOUSLY FALLING ASLEEP WHILE TALKING TO THIS RN.PT ABLE TO LIFT LEG UP BY HEAD AND STRETCH HIP JOINT. THIS RN QUESTIONED PT ABOUT WHY PT IS FALLING ASLEEP. PT STATES I WAS UP ALL NIGHT. THIS RN TOLD PT ABOUT CONCERN FOR PT FALLING ASLEEP. PT AMBULATED AROUND ROOM WITHOUT DIFFICULTY. PT STATES HAS A ROLLATOR AT HOME
--- NOTE | 2022-06-24 14:45 | ED.RN ---
THIS RN IN TO DISCHARGE PATIENT. PT STATES I HAVE NOT SEEN A DR. PT RREMINDED THAT PHYSICIAN HAS BEEN IN MULTIPLE TIMES. PT FRIEND STATES I SAW SOMEONE IN HERE BUT I DON'T KNOW WHO HE IS. DR CAMPBELL
== END 2022-06-24 14:57 | disposition home or self-care (01) ==
PROVIDERS: Emergency Provider Emergency Medicine; PCP Family Medicine; Visit Provider Emergency Medicine
DX: S70.02XA Contusion of left hip, initial encounter (principal); J44.9 Chronic obstructive pulmonary disease, unspecified; S09.90XA Unspecified injury of head, initial encounter; W19.XXXA Unspecified fall, initial encounter; F12.90 Cannabis use, unspecified, uncomplicated; F17.210 Nicotine dependence, cigarettes, uncomplicated; I10 Essential (primary) hypertension; E78.00 Pure hypercholesterolemia, unspecified; Z99.81 Dependence on supplemental oxygen
CPT/HCPCS: 70450; 72125; 73502; 96372; 99284

== ENCOUNTER 2022-08-11 11:30 | Outpatient (RCR) | payer MEDICAID, SELFPAY ==
--- NOTE | 2022-06-28 08:28 | HP.PTEVAL ---
Patient's Visit Information KAMI JARQUIN is a 52 year old F referred to Physical Therapy by KATYA Marie with a diagnosis of Low back pain. Date of Evaluation: 06/23/22 Physical Therapist: James Kulkarni DPT - Visit Plan Frequency: 1x/Week Duration: 4 Weeks Plan: Pt. had highly irritable symptoms today. I would like her to work on some core stability/BLE strengthening and general mobility in aquatic setting. Add in some balance exercises as well. She is overall fairly deconditioned and really needs to work on some stability exercises. - Subjective Pt. is here today for her initial evaluation with diagnosis of low back pain. Pt. reports having pain for years, with 2 surgeries in 2012. Sounds like laminectomies. Pt. has had therapy in the past with some decent results. Pt. arrives today with rollator. She reports that she feel earlier at home, tripped. She denies seeking medical attention. I did check on her. I did recommend that she at a minimum get looked at by urgent care, possible xray. Pt. denies. She does report some sacral pain currently. Pt. did have a bit of difficulty with explaining her history and had trouble maintaining sitting balance. Pt. reports pain in her L leg as well. She reports increased pain with all mobility and with sitting. Pain is unrelenting. Pt. reports pain at 8/10 currently. She reports using rollator with all mobility. She does report a history of mental illness which she reports has caused her to go on disability. Pt. is hopeful to reduce symptoms in order to get back to all household activities with less pain. - Pain L leg Pain Intensity (Out of 10): 8 Pain Intensity Range: 6, 10 Sacral region Pain Intensity (Out of 10): 4 Pain Intensity Range: 2, 7 Lumbar spine Pain Intensity (Out of 10): 8 Pain Intensity Range: 6, 10 - Objective POSTURE: Pt. has overall flexed posture in stance. She has a lot of difficulty standing still. She was having trouble intermittently maintaining sitting balance as well. PALPATION: Pt. has tenderness with palpation of lumbar spine, throughout. Pt. has no pain with palpation of BLEs. NEURO: Pt. has decreased sensation to distal LEs with light touch. Normal DTR throughout. Pt. is able to rise on heels and toes without issues. ROM: LUMBAR SPINE: flexion mod loss increase NW, ext mod loss increase NW, rotation min loss increase NW bilat, SB mod loss increase NW bilat. Pt. has normal B hip ROM without increase in symptoms. Mild increase in L hip ROM, but not sever. MMT: RLE: ankle 5/5 throughout; knee: ext 4/5, flexion 4/5; hip: flexion 4/5, abd 4-/5, ext 4-/5. LLE: ankle 5/5 throughout; knee: ext 4/5, flexion 4/5; hip: 4-/5 throughout. Core strength- poor-. GAIT: Pt. was able to walk with rollator with intermittent control. Pt. reports pain again with walking, but is able to bear wt. well on BLEs. Pt. does require rollator for her mobility. Pt. has a lot of postural sway. She is very impulsive. STAIRS: step to pattern with loading RLE with use of BHR to complete. - Special Tests L/S Slump test left side: Positive L/S Slump test right side: Positive L/S Left Straight Leg Raise: Negative L/S Right Straight Leg Raise: Negative Lumbar Standing: Flexion - Mechanical Response: No effect Lumbar Standing: Flexion - Symptoms During Testing: Increases Lumbar Standing: Flexion - Symptoms After Testing: No worse Lumbar Standing: Extension - Mechanical Response: No effect Lumbar Standing: Extension - Symptoms During Testing: Increases Lumbar Standing: Extension - Symptoms After Testing: No worse Lumbar Standing: Right Side Glides - Mechanical Response: No effect Lumbar Standing: Right Side [place] - Symptoms During Testing: Increases Lumbar Standing: Right Side [place] - Symptoms After Testing: No worse Lumbar Standing: Left Side [place] - Mechanical Response: No effect Lumbar Standing: Left Side [place] - Symptoms During Testing: Increases Lumbar Standing: Left Side [place] - Symptoms After Testing: No worse - Balance/Special Test Scores Oswestry Low Back Score: 47 - Goals Goal 1:: LTG: Pt. to be I with HEP. Goal Time Frame: 4-6 Weeks Goal 2:: STG: Pt. to be able to sit with 0-4/10 pain in lumbar spine. Goal Time Frame: 2-4 Weeks Goal 3:: LTG: Pt. to be able to walk with rollator with 0-4/10 pain in lumbar spine and L leg. Goal Time Frame: 4-6 Weeks Goal 4:: LTG: pt. to have increased BLE and core strength increased by 1/2 grade. Goal Time Frame: 4-6 Weeks Goal 5:: LTG: Pt. to complete all ADLs and IADLS with 0-4/10 pain in lumbar spine. Goal Time Frame: 4-6 Weeks - Rehabilitation Potential Physical Therapy Diagnosis: Pt. has signs and symptoms of irreducible low back pain. She had pain with all testing today, not long lasting and would reduce to baseline after. She did have a fall this morning on her L side. She reports having increased sacral pain. I did recommend that she get an xray to rule out any fractures, pt. declined at this time. Her pain in her lumbar spine due to is irritability was hard to pin point source. Due to this I would like to work on general mobility and core stability in the aquatic setting. Rehabilitation Potential: Fair - Anticipated Interventions Patient/Client Instruction: Educate patient on: Condition, Plan of Care, Risk Factors, Benefits of Fitness Program For the Purpose of:: To improve decision making, To facilitate caregiver knowledge, To improve self management, To prevent re-injury, To improve ability to perform tasks related to life management, To improve tolerance to ADL's Therapeutic Exercise to Include: Strength training, Power training, Postural training, Flexibilty training, Gait and locomotor training, In an aquatic setting, Dynamic Lumbar Stabilization For the Purpose of:: To decrease pain, To increase ROM, To improve nutrient delivery to tissue, To increase oxygenation perfusion, To improve muscle performance and motor function, To improve ability to perform ADL's, To improve gait and locomotor functions, To improve health of tissue, To decrease soft tissue restriction, To increase flexibility/ROM, To improve endurance, To improve balance Thank you for the opportunity to evaluate your patient. For Medicare and Medicare HMO plans, please review the plan of care and approve it. It will need to be FAXED BACK to us at [phone] for Medicare purposes. For Medicare only, by signing this I certify the plan of care. Please let me know if there are questions or concerns regarding this plan of care. Physician Signature: Date:
--- NOTE | 2022-08-11 12:02 | HP.PTDCSUM ---
It has been my pleasure to treat KAMI JARQUIN referred by KATYA Marie, with the diagnosis of Low back pain for a total of 7 visit(s). Discharge Date: 08/11/22 Please see the following information for a summary of their discharge status. Subjective: Pt. reports that her back pain is not any better. Pt. arrives using her rollator, my back is extremely painful today, its a 10/10. She reports no mechanism for her pain, just that it hurts. Pt. reports very little benefit from PT with reducing her pain. L leg Pain Intensity (Out of 10): 10 Sacral region Pain Intensity (Out of 10): 10 Lumbar spine Pain Intensity (Out of 10): 10 % Improvement: 0 Objective/Function: Pt. reports using furniture to get around the house. Pt. reports overall that her pain is about the same. Pt. reports having some mild relief while in the pool, but it is back with in an hour or so. Pt. reports having a lot pain at night, medication to sleep. back pain keeps her up all night. ROM: lumbar spine: flexion: min loss slightly better, ext max loss unable to stand up right. SB max loss bilat, rotation max loss bilat. pain in her low back and into sacral region. Pt. has pain going down her LLE to her toes this date the whole leg.. Pt. has normal sensation in BLEs. Pt. has normal DTR of BLEs. MMT: Pt. has weakness noted in RLE 4+/5 throughout. LLE ankle 4/5 throughout; knee: ext 4/5 increase NW, flexion 4/5 increase NW. She reports being able to get around her house and do all of her ADLs, but has pain with all movements. It is hard to true assess her lumbar spine due to everything being painful today. Goal 1:: LTG: Pt. to be I with HEP. Goal Progress: Progressing Goal 2:: STG: Pt. to be able to sit with 0-4/10 pain in lumbar spine. Goal Progress: Not Progressing Goal 3:: LTG: Pt. to be able to walk with rollator with 0-4/10 pain in lumbar spine and L leg. Goal Progress: Not Progressing Goal 4:: LTG: pt. to have increased BLE and core strength increased by 1/2 grade. Goal Progress: Not Progressing Goal 5:: LTG: Pt. to complete all ADLs and IADLS with 0-4/10 pain in lumbar spine. Goal Progress: Not Progressing Plan: I would recommend that she be DC from PT at this point in time and back to physician as PT has not been very helpful at this point in time. Pt. agrees with this plan. She might benefit from further imaging at this point in time. Discharge Comments: Pt. will be DC from PT at this point in time. She did not benefit with PT in aquatic setting. I think following up with physician for further instruction would be warranted at this point in time. If there are questions or concerns regarding this patient's physical therapy, please feel free to call me at [phone]. Thank you for the referral of this patient. Sincerely, James Rios Sipos, DPT Balance/Gait/Functional tests - Balance/Special Test Scores Oswestry Low Back Score: 40
== END 2022-08-11 13:17 | disposition home or self-care (01) ==
LOC: PT 11:30
PROVIDERS: PCP Family Medicine; Referring Provider Nurse Practitioner; Visit Provider Nurse Practitioner
DX: M48.061 Spinal stenosis, lumbar region without neurogenic claudication (principal)
CPT/HCPCS: 97113; 97161; 97164

== ENCOUNTER → 2022-10-20 | Outpatient (CLI) | payer MEDICAID, SELFPAY ==
--- NOTE | 2022-10-20 08:30 | MRI_ITS ---
INDICATION: Low back pain. Evaluate for herniated disc L5-S1 EXAMINATION: MR Spine Lumbar W/O Contrast TECHNIQUE: Multiplanar and multisequence MR images of the lumbar spine. IV Contrast Dosage and Agent: None. COMPARISON: MRI lumbar spine April 24, 2014, report only. Lumbar spine x-rays March 23, 2022. FINDINGS: VERTEBRAE: Vertebral body heights are preserved. Multilevel Schmorl''s node endplate changes and Modic endplate changes. Prior right hemilaminectomy at L3-4. Multilevel facet degenerative changes. Multilevel endplate osteophyte formation. Sacral ala are intact. VERTEBRAL ALIGNMENT: No spondylolisthesis. There is straightening of the normal lumbar lordosis. CORD: Normal position and signal intensity of the conus medullaris. Conus terminates at the L1-2 disc space level. SOFT TISSUES: Visualized aorta is normal in caliber. AXIAL IMAGES: L1-2: Diffuse disc bulging. No mass effect upon the conus medullaris. Facets are intact. No significant spinal canal or foraminal narrowing. L2-3: Diffuse disc bulging. Facets are intact. No significant spinal canal or foraminal narrowing. L3-4: Prior right hemilaminectomy defect. Chronic discogenic changes with asymmetric right lateral disc material and osteophyte formation. Central canal is decompressed. There is right subarticular recess narrowing. Mild to moderate right and mild left foraminal narrowing. L4-5: Right lateral disc protrusion and endplate osteophyte formation. Right greater than left subarticular recess narrowing and overall mild spinal canal stenosis. There is no significant left foraminal narrowing. There is moderate to severe right foraminal narrowing with mild right L4 nerve root displacement. L5-S1: Left lateral disc protrusion and endplate osteophyte formation with severe left foraminal narrowing and mass effect upon the left L5 nerve root in the neural foramen. Left greater than right facet arthropathy. No significant overall spinal canal stenosis. Mild left subarticular recess narrowing. No significant right foraminal narrowing. MRI/Spine Lumbar (Routine) IMPRESSION: Prior L3-4 right hemilaminectomy. Spondylosis changes at L4-5 and L5-S1 as described. Electronically Signed: Brenden Chand MD at 17:17 EDT ,
== END | disposition home or self-care (01) ==
LOC: MRI 07:30
PROVIDERS: PCP Family Medicine; Referring Provider Orthopaedic Surgery; Visit Provider Orthopaedic Surgery
DX: M51.27 Other intervertebral disc displacement, lumbosacral region (principal)
CPT/HCPCS: 72148

== ENCOUNTER 2022-11-03 15:21 | Emergency (ER) | payer MEDICAID, SELFPAY ==
[2022-11-03 15:23] VITALS: BP 196/116; PULSE 76; RESP 18; TEMP 36.6; O2SAT 97
[2022-11-03 16:35] VITALS: BP 207/127; PULSE 79; RESP 10; O2SAT 100
--- NOTE | 2022-11-03 16:38 | CT_ITS ---
STUDY: CT BRAIN WITHOUT CONTRAST REASON FOR EXAM: Female, 52 years old. Headache. Elevated blood pressure. RADIATION DOSAGE (If Supplied By Facility): CTDIvol = ( 44.99 ) mGy, DLP = ( 829.85 ) mGycm TECHNIQUE: Transaxial CT imaging of the brain was performed without administration of intravenous contrast material. Individualized dose optimization techniques were used for this CT. COMPARISON: June 24, 2022 FINDINGS: Normal soft tissue structures. Normal calvarium. Normal size ventricles and extra-axial spaces for the patient''s age. Normal white matter tracts of the cerebral hemispheres. Normal basal ganglia and thalami. Normal brainstem. Normal cerebellum. There is no intracranial hemorrhage. There are no findings of an acute ischemic infarction. There is partial opacification of the right maxillary sinus unchanged from previous examination. CT/Brain/Head without Contrast IMPRESSION: Normal unenhanced CT scan of the brain. No interval change. AIDOC was utilized to assist in identifying pertinent positive findings in this case. Electronically Signed: Hernando Bangura DO at 18:08 EDT ,
--- NOTE | 2022-11-03 16:38 | EKG12_ITS ---
Test Reason : Blood Pressure : / mmHG Vent. Rate : 067 BPM Atrial Rate : 067 BPM P-R Int : 188 ms QRS Dur : 090 ms QT Int : 402 ms P-R-T Axes : 073 023 059 degrees QTc Int : 424 ms Normal sinus rhythm Septal infarct , age undetermined Abnormal ECG Confirmed by RICCI BLACKWELL, BIBIANA ([id number]), subeditor DOYLE BAZZI ([id number]) on 11/05/2022 9:30:02 AM Referred By: MAXIMILIAN Confirmed By:BIBIANA WYNNE MD
--- NOTE | 2022-11-03 16:42 | EX.ED.DYSGE1 ---
HPI History of Present Illness Chief Complaint: Hypertension Narrative Narrative: 52-year-old female presenting with hypertension. She was at her dentist office when they found that she was hypertensive. She states she has a low-grade headache and it feels like she has a occasional flash behind her eyes. She denies a thunderclap headache. She denies lightheadedness or dizziness. Patient states that her blood pressure medicine was stopped a couple weeks ago because her blood pressure was low. She states she seen her PCP and her blood pressure was normal at her last visit. Today it is very elevated and is not sure why. She states she had less than 2 cups of coffee today. She does not have any chest pain. She does state that she noticed that she is developing some slight swelling in her feet. She states she is a little short of breath but states he is always short of breath. No fevers or chills. [facility] Medical History Acute cholecystitis Acute hyponatremia Acute pancreatitis Alcohol abuse Alcohol withdrawal Ambulates with cane Anemia Anemia of unknown etiology Anxiety Arthritis Chronic pain COPD (chronic obstructive pulmonary disease) Depression Desire for detoxification Distal radius fracture, right Easy bruising Elevated LFTs Excessive bleeding Gastric reflux High cholesterol History of edema Hyperglycemia Hypertension Hypothyroidism Marijuana use On home oxygen therapy Pulmonary embolism Pulmonary embolism Recurrent syncope Renal insufficiency Restless legs Shortness of breath on exertion Sleep apnea Smoker Transient hypotension Walker as ambulation aid Wears glasses Home Medications bupropion HCl 150 mg tablet,12 hr sustained-release (Wellbutrin SR) 150 mg PO DAILY depression 04/30/21 [History Last Taken 04/30/21] famotidine 20 mg tablet 20 mg PO QHS gerd 04/30/21 [History Last Taken 04/29/21] ferrous sulfate 325 mg (65 mg iron) tablet 325 mg PO BID supplement 04/30/21 [History Last Taken 04/30/21] fluoxetine 60 mg tablet 60 mg PO DAILY anxiety 04/30/21 [History Last Taken 04/30/21] levothyroxine 25 mcg tablet 25 mcg PO DAILY hypothyroid 04/30/21 [History Last Taken 04/30/21] tiotropium bromide 2.5 mcg/actuation mist for inhalation (Spiriva Respimat) 2 puff inhalation DAILY COPD 04/30/21 [History Last Taken 01/22/22] pregabalin 150 mg capsule (Lyrica) 150 mg PO TID pain 05/03/21 [History Last Taken Unknown] albuterol sulfate 2.5 mg/3 mL (0.083 %) solution for nebulization 2.5 mg inhalation Q6H PRN PRN Shortness Of Breath Or Wheezing 10/12/21 [History Last Taken 01/22/22] albuterol sulfate 90 mcg/actuation aerosol inhaler (Ventolin HFA) 1 puff inhalation Q4H PRN PRN Shortness Of Breath Or Wheezing 10/12/21 [History Last Taken Unknown] cholecalciferol (vitamin D3) 25 mcg (1,000 unit) capsule (Vitamin D3) 25 mcg PO DAILY vitamin 10/12/21 [History Last Taken Unknown] atorvastatin 40 mg tablet 40 mg PO QHS cholesterol 02/03/22 [History Last Taken Unknown] omeprazole 20 mg capsule,delayed release 20 mg PO DAILY reflux 03/25/22 [History Last Taken Unknown] thiamine HCl (vitamin B1) 50 mg tablet 50 mg PO DAILY vitamin 03/25/22 [History Last Taken Unknown] baclofen 10 mg tablet 5 mg PO BID pain #30 tabs 05/06/22 [Rx Last Taken 04/30/21] cyanocobalamin (vitamin B-12) 1,000 mcg tablet (Vitamin B-12) 1,000 mcg PO 07/27/22 [History Last Taken Unknown] fluticasone furoate 200 mcg-vilanterol 25 mcg/dose inhalation powder (Breo Ellipta) 1 inh inhalation 07/27/22 [History Last Taken Unknown] mirabegron 25 mg tablet,extended release 24 hr (Myrbetriq) 25 mg PO 07/27/22 [History Last Taken Unknown] olanzapine 10 mg tablet tablet PO 10/28/22 [History Last Taken Unknown] oxybutynin chloride 10 mg tablet,extended release 24 hr 10 mg PO 10/28/22 [History Last Taken Unknown] trazodone 150 mg tablet 150 mg PO 10/28/22 [History Last Taken Unknown] Allergy/AdvReac Type Severity Reaction Status Date / Time fentanyl Allergy Anaphylaxis Verified 11/03/22 15:21 varenicline [From Chantix] AdvReac hallucinati Verified 11/03/22 15:21 ons Family History Other Cancer Surgical History H/O skin graft H/O: hysterectomy Hx of cholecystectomy Hx of tonsillectomy Social History household members: none Smoking Status: Current every day smoker tobacco type: cigarettes alcohol intake: former substance use type: marijuana additional social history: disabled ROS ROS ED Review of Systems ROS Unobtainable: Denies due to encephalopathy Constitutional Constitutional ED: Denies chills or fever(s) Eyes Eyes: Denies diplopia ENT ENT ED: Denies rhinorrhea Cardiovascular Cardiovascular: Denies chest pain or palpitations Respiratory/Chest Respiratory/Chest: Denies cough or dyspnea Gastrointestinal Gastrointestinal: Denies abdominal pain, nausea or vomiting Genitourinary Genitourinary ED: Denies dysuria or hematuria Musculoskeletal Musculoskeletal: Denies arthralgias Integumentary Denies abscess or Abrasions Neurologic Neurologic: Reports headache(s); Denies paresthesias or weakness Psychiatric Psychiatric: Denies anxiety or depression EXAM Physical Exam Const Vital Signs: 11/03/22 15:23 11/03/22 16:35 11/03/22 16:36 Temperature 97.8 F Temperature Source Temporal Pulse Rate 76 79 Respiratory Rate 18 10 L Respiratory Effort Normal Non-Labored Respiratory Pattern Normal Blood Pressure 196/116 H 207/127 H Blood Pressure Mean 142 153 Pulse Ox 97 100 Oxygen Delivery Method Room Air Room Air 11/03/22 16:38 11/03/22 18:04 11/03/22 19:48 Temperature Temperature Source Pulse Rate 77 Respiratory Rate 18 Respiratory Effort Respiratory Pattern Blood Pressure 189/121 H 133/109 H Blood Pressure Mean 143 117 Pulse Ox 98 Oxygen Delivery Method Room Air Positive well nourished General Appearance ED: NAD; Negative for pallor HEENT Reports moist mucous membranes Eyes PERRL and EOMs intact bilaterally General Eye ED: Negative for pale conjunctiva or scleral icterus Chest Wall inspection of chest normal Resp normal respiratory effort and clear to auscultation bilaterally Auscultation: Negative for rales, rhonchi or wheezes Cardio regular rate and regular rhythm GI normal to inspection, nondistended, normoactive bowel sounds Extremity normal to inspection Neuro oriented x3 and CN's II-XII intact bilaterally Sensorium / Orientation: alert Motor Exam: strength 5/5 throughout Psych mental status grossly normal Skin no rashes or lesions noted General Skin Exam: Negative for jaundice or pallor MDM MDM MDM Narrative Medical decision making narrative: Patient presenting extremely hypertensive. She is off her blood pressure medicine for a couple of weeks. We will start with 10 of hydralazine. Given the flashes behind the eyes and mild headache I will obtain a CT brain to rule out intracranial hemorrhage. I will also check labs for endorgan damage. CBC to assess white blood cell count, hemoglobin, platelets, differential. BMP to assess renal function, electrolytes, glucose, anion gap. Troponin assess for cardiac ischemia. Chest x-ray and EKG will also be obtained. CBC shows a normal white blood cell count. Hemoglobin macular stable. Platelets are normal. Renal function electrolytes within normal limits. High-sensitivity troponin is 7. Chest x-ray my interpretation shows no acute cardiopulmonary process. Radiologist agrees. EKG sinus rhythm with a rate of 67 bpm without sign of ischemic change or ectopy. CT brain was obtained and is negative for acute intracranial pathology. Patient given a dose of hydralazine. Her blood pressure responded fairly well to 133/109 from 196/116. Given this I spoke to Dr. Richard Almazan who is on-call for her doctor. She recommended starting metoprolol 50 mg this is what she was on before. She recommended keeping a blood pressure diary. First dose was given in the ED. Patient given return precautions. Impression: 1. Hypertension 2. Atypical headache Lab Data Labs: Laboratory Results - last 24 hr 11/03/22 11/03/22 17:34 17:34 WBC 6.7 RBC 4.14 L Hgb 12.7 Hct 39.2 MCV 94.7 MCH 30.7 MCHC 32.4 RDW Std Deviation 43.8 RDW Coeff of Sandeep 12.6 Plt Count 254 MPV 10.4 Immature Gran % (Auto) 0.300 Neut % (Auto) 54.1 Lymph % (Auto) 30.4 [place] % (Auto) 8.0 Eos % (Auto) 6.3 H Baso % (Auto) 0.9 Absolute Neuts (auto) 3.6 Absolute Lymphs (auto) 2.02 Nucleated RBC % 0 Sodium 139 Potassium 4.0 Chloride 103 Carbon Dioxide 32.0 Anion Gap 4 L BUN 19 H Creatinine 0.75 Estim Creat Clear Calc 83.45 Est GFR (MDRD) Af Amer 103 Est GFR (MDRD) Non-Af 85 BUN/Creatinine Ratio 25.3 H Glucose 82 Calcium 9.2 Troponin I High Sens 7 Radiography Diagnostic Testing: Clinical Impression(s) from Imaging Studies Brain CT 11/03/22 16:38 IMPRESSION: Normal unenhanced CT scan of the brain. No interval change. AIDOC was utilized to assist in identifying pertinent positive findings in this case. Electronically Signed: Hernando Bangura DO at 18:08 EDT Reading Location ID and State: [facility] / [place] Tel [phone], Service support , Chest X-Ray 11/03/22 17:19 IMPRESSION: Stable atelectasis/scarring without acute abnormality. Electronically Signed: Hernando Bangura DO at 17:41 EDT Reading Location ID and State: [facility] / [place] Tel [phone], Service support , Discharge Plan Triage Chief Complaint: Hypertension ED Provider: Agustin Silva Dx/Rx/DC Orders Instructions: ED Hypertension, Established Prescriptions: No Action omeprazole 20 mg capsule,delayed release(DR/EC) 20 mg PO DAILY thiamine HCl (vitamin B1) 50 mg tablet 50 mg PO DAILY cyanocobalamin (vitamin B-12) [Vitamin B-12] 1,000 mcg tablet 1,000 mcg PO fluticasone furoate-vilanterol [Breo Ellipta] 200-25 mcg/dose blister with device 1 inh inhalation Myrbetriq 25 mg tablet extended release 24 hr 25 mg PO trazodone 150 mg tablet 150 mg PO olanzapine 10 mg tablet PO oxybutynin chloride 10 mg tablet extended release 24hr 10 mg PO bupropion HCl [Wellbutrin SR] 150 mg Tablet Sustained-Release 12 Hr 150 mg PO DAILY levothyroxine 25 mcg Tablet 25 mcg PO DAILY famotidine 20 mg Tablet 20 mg PO QHS ferrous sulfate 325 mg (65 mg iron) Tablet 325 mg PO BID fluoxetine 60 mg Tablet 60 mg PO DAILY Spiriva Respimat 2.5 mcg/actuation Mist 2 puff INHALATION DAILY pregabalin [Lyrica] 150 mg capsule 150 mg PO TID atorvastatin 40 mg tablet 40 mg PO QHS cholecalciferol (vitamin D3) [Vitamin D3] 25 mcg (1,000 unit) Capsule 25 mcg PO DAILY albuterol sulfate 2.5 mg /3 mL (0.083 %) solution for nebulization 2.5 mg inhalation Q6H PRN PRN (Reason: Shortness Of Breath Or Wheezing) albuterol sulfate [Ventolin HFA] 90 mcg/actuation HFA aerosol inhaler 1 puff INHALATION Q4H PRN PRN (Reason: Shortness Of Breath Or Wheezing) baclofen 10 mg Tablet 5 mg PO BID Qty: 30 0RF Primary Care Provider: Memo Chairez Referrals: Memo Chairez MD [Primary Care Provider] - Disposition Disposition: Home, Self Care
--- NOTE | 2022-11-03 17:19 | RAD_ITS ---
STUDY: X-RAY CHEST REASON FOR EXAM: Female, 52 years old. Chest pain. TECHNIQUE: Single AP portable view of the chest. COMPARISON: June 05, 2022. FINDINGS: The lungs are well expanded. There is minimal linear atelectasis seen in the right midlung and left lung base, unchanged from prior study. No new mass or infiltrate. There is no demonstrated pleural abnormality. Normal size heart. Normal mediastinum and ollie. Normal visualized pulmonary arteries. Normal visualized aortic arch and descending thoracic aorta. Normal visualized thoracic spine. Normal visualized ribs, clavicles, and shoulders. There is no demonstrated abnormality of the visualized soft tissue structures of the upper abdomen. RAD/Chest 1 View (Portable) IMPRESSION: Stable atelectasis/scarring without acute abnormality. Electronically Signed: Hernando Bangura DO at 17:41 EDT ,
[2022-11-03 17:41] LABS: Absolute Lymphocyte Count 2.02 X10^3/uL (0.83-4.51); Absolute Neutrophil Count 3.6 X10^3/uL (2.0-7.7); Basophil# 0.06 X10^3/uL; Basophil% 0.9 % (0-1); Eosinophil# 0.42 X10^3/uL; Eosinophils% 6.3 % (0-5); Hematocrit 39.2 % (37-47); Hemoglobin 12.7 g/dL (12.0-15.0); Lymphocyte # 2.02 X10^3/ul (0.83-4.51); Lymphocyte % 30.4 % (19-41); Mean Corp Hgb Conc 32.4 g/dL (32-36); Mean Corpuscular Hgb 30.7 pg (27.0-32.0); Mean Corpuscular Volume 94.7 fL (81-99); Mean Platelet Vol. 10.4 fl (6.2-12.0); Monocyte# 0.53 X10^3/uL; NRBC Flagged by Analyzer 0 % (0-5); Neutrophil % 54.1 % (47-70); Platelet Count 254 K/mm3 (150-450); RBC Distribution Width CV 12.6 % (11.6-14.6); RBC Distribution Width SD 43.8 fl (35.1-43.9); Red Blood Count 4.14 M/mm3 (4.2-5.4); White Blood Count 6.7 K/mm3 (4.4-11.0)
[2022-11-03] MEDS: hydrALAZINE 20 MG/ML Vial 10 MG IV (17:46)
[2022-11-03 18:04] VITALS: BP 189/121; PULSE 77; RESP 18; O2SAT 98
[2022-11-03 18:06] LABS: Anion Gap 4 (5-15); BUN 19 mg/dL (7-18); BUN/Creat Ratio 25.3 RATIO (10-20); Calcium,Total 9.2 mg/dL (8.5-10.1); Chloride 103 mmol/L (98-107); Creatinine, Serum 0.75 mg/dL (0.55-1.02); EST Glomerular Filtration Rate 85 mL/min (>60); Est Glom Filt Rate - Afr Amer 103 mL/min (>60); Estimated Creatinine Clearance 83.45 ml/min; Glucose 82 mg/dL (74-106); Sodium Level 139 mmol/L (136-145); Troponin-I HS 7 pg/mL (3.0-54.0)
[2022-11-03 19:48] VITALS: BP 133/109
[2022-11-03] MEDS: Metoprolol Tartrate 50 MG Tablet PO (20:34)
== END 2022-11-03 20:40 | disposition home or self-care (01) ==
PROVIDERS: Emergency Provider Student in an Organized Health Care Education/Training Program; PCP Family Medicine; Visit Provider Student in an Organized Health Care Education/Training Program
DX: I10 Essential (primary) hypertension (principal); J44.9 Chronic obstructive pulmonary disease, unspecified; R51.9 Headache, unspecified; E78.00 Pure hypercholesterolemia, unspecified; F17.210 Nicotine dependence, cigarettes, uncomplicated; F32.A Depression, unspecified; K21.9 Gastro-esophageal reflux disease without esophagitis; E03.9 Hypothyroidism, unspecified; Z99.81 Dependence on supplemental oxygen; Z79.899 Other long term (current) drug therapy; Z79.51 Long term (current) use of inhaled steroids
CPT/HCPCS: 70450; 71045; 80048; 84484; 85025; 93005; 99285; A4216

== ENCOUNTER 2022-11-22 13:18 | Emergency (ER) | payer MEDICAID, SELFPAY ==
[2022-11-22 13:19] VITALS: BP 186/112; PULSE 63; RESP 18; TEMP 35.4; O2SAT 100; BMI 22.7
[2022-11-22 13:49] VITALS: BP 182/109
--- NOTE | 2022-11-22 14:08 | EKG12_ITS ---
Test Reason : HTN Blood Pressure : / mmHG Vent. Rate : 061 BPM Atrial Rate : 061 BPM P-R Int : 200 ms QRS Dur : 088 ms QT Int : 420 ms P-R-T Axes : 075 001 059 degrees QTc Int : 422 ms Normal sinus rhythm Confirmed by RICCI BLACKWELL, BIBIANA ([id number]), supervising editor news reel DOYLE BAZZI ([id number]) on 11/24/2022 9:16:21 AM Referred By: Confirmed By:BIBIANA WYNNE MD
--- NOTE | 2022-11-22 14:10 | EDS_ITS ---
HPI History of Present Illness Chief Complaint: Hypertension Detail of Chief Complaint: High blood pressure Informant: patient Narrative Narrative: Patient presents the emergency department complaint of high blood pressure that she noted today. Patient states that she woke up and did not feel well and that she had a low lightheaded feeling and a headache. Patient states that she noticed that her hands and her feet have been a little more swollen of late. Patient went to the dentist to have a crown placed and when they checked her blood pressure was 198/132 so they would not do any other work and she was advised to be evaluated in the emergency department. She denies any chest pain or shortness of breath. Patient states that she was recently in the emergency department about 3 weeks ago for elevated blood pressure and was started on metoprolol 50 mg daily. Patient to take her blood pressure medicine today. She denies recent illness. Patient does have history of chronic back pain and states she has been in more pain and is wondering if that is not the cause of her elevated blood pressure. [facility] Medical History Acute cholecystitis Acute hyponatremia Acute pancreatitis Alcohol abuse Alcohol withdrawal Ambulates with cane Anemia Anemia of unknown etiology Anxiety Arthritis Chronic pain COPD (chronic obstructive pulmonary disease) Depression Desire for detoxification Distal radius fracture, right Easy bruising Elevated LFTs Excessive bleeding Gastric reflux High cholesterol History of edema Hyperglycemia Hypertension Hypothyroidism Marijuana use On home oxygen therapy Pulmonary embolism Pulmonary embolism Recurrent syncope Renal insufficiency Restless legs Shortness of breath on exertion Sleep apnea Smoker Transient hypotension Walker as ambulation aid Wears glasses Home Medications bupropion HCl 150 mg tablet,12 hr sustained-release (Wellbutrin SR) 150 mg PO DAILY depression 04/30/21 [History Last Taken 04/30/21] famotidine 20 mg tablet 20 mg PO QHS gerd 04/30/21 [History Last Taken 04/29/21] ferrous sulfate 325 mg (65 mg iron) tablet 325 mg PO BID supplement 04/30/21 [History Last Taken 04/30/21] fluoxetine 60 mg tablet 60 mg PO DAILY anxiety 04/30/21 [History Last Taken 04/30/21] levothyroxine 25 mcg tablet 25 mcg PO DAILY hypothyroid 04/30/21 [History Last Taken 04/30/21] tiotropium bromide 2.5 mcg/actuation mist for inhalation (Spiriva Respimat) 2 puff inhalation DAILY COPD 04/30/21 [History Last Taken 01/22/22] pregabalin 150 mg capsule (Lyrica) 150 mg PO TID pain 05/03/21 [History Last Taken Unknown] albuterol sulfate 2.5 mg/3 mL (0.083 %) solution for nebulization 2.5 mg inhalation Q6H PRN PRN Shortness Of Breath Or Wheezing 10/12/21 [History Last Taken 01/22/22] albuterol sulfate 90 mcg/actuation aerosol inhaler (Ventolin HFA) 1 puff inhalation Q4H PRN PRN Shortness Of Breath Or Wheezing 10/12/21 [History Last Taken Unknown] cholecalciferol (vitamin D3) 25 mcg (1,000 unit) capsule (Vitamin D3) 25 mcg PO DAILY vitamin 10/12/21 [History Last Taken Unknown] atorvastatin 40 mg tablet 40 mg PO QHS cholesterol 02/03/22 [History Last Taken Unknown] omeprazole 20 mg capsule,delayed release 20 mg PO DAILY reflux 03/25/22 [History Last Taken Unknown] thiamine HCl (vitamin B1) 50 mg tablet 50 mg PO DAILY vitamin 03/25/22 [History Last Taken Unknown] baclofen 10 mg tablet 5 mg PO BID pain #30 tabs 05/06/22 [Rx Last Taken 04/30/21] cyanocobalamin (vitamin B-12) 1,000 mcg tablet (Vitamin B-12) 1,000 mcg PO 07/27/22 [History Last Taken Unknown] fluticasone furoate 200 mcg-vilanterol 25 mcg/dose inhalation powder (Breo Ellipta) 1 inh inhalation 07/27/22 [History Last Taken Unknown] mirabegron 25 mg tablet,extended release 24 hr (Myrbetriq) 25 mg PO 07/27/22 [History Last Taken Unknown] olanzapine 10 mg tablet tablet PO 10/28/22 [History Last Taken Unknown] oxybutynin chloride 10 mg tablet,extended release 24 hr 10 mg PO 10/28/22 [History Last Taken Unknown] trazodone 150 mg tablet 150 mg PO 10/28/22 [History Last Taken Unknown] hydrocodone-acetaminophen 5-325mg 5mg-325mg 1 tab PO Q4H PRN PRN Pain 2 days #10 TABLETS 11/22/22 [Rx Last Taken Unknown] Allergy/AdvReac Type Severity Reaction Status Date / Time fentanyl Allergy Anaphylaxis Verified 11/03/22 15:21 varenicline [From Chantix] AdvReac hallucinati Verified 11/03/22 15:21 ons Family History Other Cancer Surgical History H/O skin graft H/O: hysterectomy Hx of cholecystectomy Hx of tonsillectomy Social History household members: none Smoking Status: Current every day smoker tobacco type: cigarettes alcohol intake: former substance use type: marijuana additional social history: disabled ROS ROS ED ROS Narrative Lightheadedness Review of Systems ROS Unobtainable: other Constitutional Constitutional ED: Reports lethargy; Denies chills, fever(s), sweats or weight loss Eyes Eyes: Denies blurry vision, change in vision or diplopia ENT ENT ED: Denies rhinorrhea or sore throat Cardiovascular Cardiovascular: Denies chest pain, orthopnea or racing heartbeat Respiratory/Chest Respiratory/Chest: Denies cough, dyspnea, dyspnea on exertion, orthopnea or sputum Gastrointestinal Gastrointestinal: Denies abdominal pain, diarrhea, nausea or vomiting Genitourinary Genitourinary ED: Denies dysuria, hematuria or urinary frequency Musculoskeletal Musculoskeletal: Reports back pain; Denies arthralgias, myalgias or neck pain Integumentary Denies abscess, Abrasions or rash Neurologic Neurologic: Reports headache(s); Denies weakness Psychiatric Psychiatric: Denies anxiety, depression or suicidal thoughts Endocrine Endocrinology: Denies polydipsia, polyphagia or polyuria Hematologic/Lymphatic Hematologic/Lymphatic: Denies easy bleeding, easy bruising or lymphadenopathy Allergic/Immunologic Allergic/Immunologic ED: Denies mouth swelling, tongue swelling or urticaria EXAM Physical Exam Const Vital Signs: 11/22/22 13:19 11/22/22 13:49 11/22/22 13:49 Temperature 95.8 F L Temperature Source Temporal Pulse Rate 63 Respiratory Rate 18 Respiratory Effort Normal Non-Labored Respiratory Pattern Normal Blood Pressure 186/112 H 182/109 H Blood Pressure Mean 136 133 Pulse Ox 100 Oxygen Delivery Method Room Air 11/22/22 15:27 11/22/22 15:50 11/22/22 16:03 Temperature Temperature Source Pulse Rate 64 78 Respiratory Rate 16 Respiratory Effort Respiratory Pattern Blood Pressure 181/115 H 164/112 H 162/101 H Blood Pressure Mean 137 129 Pulse Ox 98 Oxygen Delivery Method Positive well nourished and well developed General Appearance ED: well developed and NAD HEENT Reports TM's clear and moist mucous membranes normocephalic and atraumatic; Negative for trauma or tenderness Tympanic Membrane ED: Yes TM's clear Eyes PERRL and EOMs intact bilaterally General Eye ED: Negative for pale conjunctiva or scleral icterus Neck no lymphadenopathy, supple and no JVD General: Negative for tenderness Chest Wall inspection of chest normal and palpation of chest normal Chest: Negative for tenderness Resp normal respiratory effort and clear to auscultation bilaterally Effort and Inspection: Negative for respiratory distress or pain with movement Auscultation: Negative for rhonchi, wheezes or diminished lung sounds Cardio regular rate, regular rhythm, S1 normal heart sound, S2 normal heart sound and no murmurs Peripheral Pulses: pulses 2+ throughout GI normal to inspection, nondistended, normoactive bowel sounds, soft to palpation, non-tender, non-distended and no masses Back/Spine no CVA tenderness and no thoracic nor lumbar tenderness Extremity normal to inspection General Extremety ED: Negative for edema General Extremity: Negative for edema Neuro oriented x3, CN's II-XII intact bilaterally, no sensory deficits noted and gait normal Sensorium / Orientation: awake, alert, oriented to person, oriented to place and oriented to time Motor Exam: strength 5/5 throughout and strength abnormal Psych mental status grossly normal Skin no rashes or lesions noted and no wounds MDM MDM MDM Narrative Medical decision making narrative: LeavePatient presents to the emergency department with concern for her hypertension. It may be related to this chronic back pain that she has as she has been more uncomfortable of late. Patient's been taking ibuprofen without much relief. Patient had an IV line established on arrival and she had an EKG which showed a sinus rhythm with a ventricular rate of 61 bpm with old septal infarct. CBC with differential was unremarkable. Chemistries unremarkable. Troponin was normal at 4. Urinalysis was normal. I did give patient hydralazine 5 mg IV as well as 4 mg of morphine and 4 mg of Zofran for pain. Patient's repeat blood pressure latest is 160/104. She is feeling significantly improved with her back pain. She had no injury to her back and has history of chronic pain. I do not feel any imaging is indicated. Patient will be given a prescription for few [place] for pain. Patient advised to keep a journal of her blood pressures and follow-up with her primary care physician within next 3 to 5 days. Lab Data Attestation: I reviewed the patient's lab results. Labs: Laboratory Results - last 24 hr 11/22/22 11/22/22 11/22/22 14:19 14:40 14:40 WBC 7.3 RBC 3.86 L Hgb 11.9 L Hct 36.2 L MCV 93.8 MCH 30.8 MCHC 32.9 RDW Std Deviation 42.9 RDW Coeff of Sandeep 12.3 Plt Count 240 MPV 10.7 Immature Gran % (Auto) 0.300 Neut % (Auto) 58.7 Lymph % (Auto) 27.1 [place] % (Auto) 8.1 Eos % (Auto) 5.1 H Baso % (Auto) 0.7 Absolute Neuts (auto) 4.3 Absolute Lymphs (auto) 1.97 Nucleated RBC % 0 Sodium 138 Potassium 4.3 Chloride 104 Carbon Dioxide 30.0 Anion Gap 4 L BUN 23 H Creatinine 0.71 Estim Creat Clear Calc 94.66 Est GFR (MDRD) Af Amer 110 Est GFR (MDRD) Non-Af 91 BUN/Creatinine Ratio 32.5 H Glucose 85 Calcium 8.8 Troponin I High Sens 4 Urine Color Straw Urine Clarity Clear Urine pH 7.0 Ur Specific [place] 1.005 Urine Protein Negative Urine Glucose (UA) Normal Urine Ketones Negative Urine Occult Blood Negative Urine Nitrite Negative Urine Bilirubin Negative Urine Urobilinogen Normal Ur Leukocyte Esterase Negative Urine RBC 0 SEEN Urine WBC 0 SEEN Ur Squamous Epith Cells 0 SEEN Urine Bacteria 0 SEEN Urine Mucus 0 SEEN EKG Initial EKG: Attestation: I personally reviewed and interpreted this EKG as follows: Comments: Sinus rhythm with a rate of 61 bpm with old septal infarct Discharge Plan Triage Chief Complaint: Hypertension ED Provider: Antonella Stallworth Dx/Rx/DC Orders Clinical Impression: Hypertension, Chronic back pain Instructions: ED Back Pain (Acute or Chronic), ED High Blood Pressure Hypertension Prescriptions: New hydrocodone-acetaminophen [hydrocodone-acetaminophen] 5-325 mg tablet 1 tab PO Q4H PRN PRN (Reason: Pain) 2 Days Qty: 10 0RF No Action omeprazole 20 mg capsule,delayed release(DR/EC) 20 mg PO DAILY thiamine HCl (vitamin B1) 50 mg tablet 50 mg PO DAILY cyanocobalamin (vitamin B-12) [Vitamin B-12] 1,000 mcg tablet 1,000 mcg PO fluticasone furoate-vilanterol [Breo Ellipta] 200-25 mcg/dose blister with device 1 inh inhalation Myrbetriq 25 mg tablet extended release 24 hr 25 mg PO trazodone 150 mg tablet 150 mg PO olanzapine 10 mg tablet PO oxybutynin chloride 10 mg tablet extended release 24hr 10 mg PO bupropion HCl [Wellbutrin SR] 150 mg Tablet Sustained-Release 12 Hr 150 mg PO DAILY levothyroxine 25 mcg Tablet 25 mcg PO DAILY famotidine 20 mg Tablet 20 mg PO QHS ferrous sulfate 325 mg (65 mg iron) Tablet 325 mg PO BID fluoxetine 60 mg Tablet 60 mg PO DAILY Spiriva Respimat 2.5 mcg/actuation Mist 2 puff INHALATION DAILY pregabalin [Lyrica] 150 mg capsule 150 mg PO TID atorvastatin 40 mg tablet 40 mg PO QHS cholecalciferol (vitamin D3) [Vitamin D3] 25 mcg (1,000 unit) Capsule 25 mcg PO DAILY albuterol sulfate 2.5 mg /3 mL (0.083 %) solution for nebulization 2.5 mg inhalation Q6H PRN PRN (Reason: Shortness Of Breath Or Wheezing) albuterol sulfate [Ventolin HFA] 90 mcg/actuation HFA aerosol inhaler 1 puff INHALATION Q4H PRN PRN (Reason: Shortness Of Breath Or Wheezing) baclofen 10 mg Tablet 5 mg PO BID Qty: 30 0RF Primary Care Provider: Memo Chairez Referrals: Memo Chairez MD [Primary Care Provider] - 3-5 Days Disposition Disposition: Home, Self Care Discharge Date/Time: 11/22/22 16:05
[2022-11-22 14:30] LABS: Bacteria 0 SEEN /hpf (None Seen); Mucous, Urine 0 SEEN /hpf (<or=2+); Red Blood Cells-Urine 0 SEEN /hpf (0-5); Squamous Epithelial Cells - UA 0 SEEN /hpf (5-10); White Blood Cells 0 SEEN /hpf (0-5)
[2022-11-22 14:31] LABS: Color, Urine Straw (Yellow); Glucose, Dipstick Normal (Normal); Ketone-Dipstick Negative (Negative); Leukocyte Esterase-Dipstick Negative /ul (Negative); Nitrite-Dipstick Negative (Negative); Occult Blood-Urine Negative /ul (Negative); Protein-Dipstick Negative (Negative); Specific Gravity, Urine 1.005 (1.002-1.030); Urine Bilirubin Dipstick Negative (Negative); Urine Clarity Clear (Clear); Urine Urobilinogen Normal (Normal)
[2022-11-22 14:51] LABS: Absolute Lymphocyte Count 1.97 X10^3/uL (0.83-4.51); Absolute Neutrophil Count 4.3 X10^3/uL (2.0-7.7); Basophil# 0.05 X10^3/uL; Basophil% 0.7 % (0-1); Eosinophil# 0.37 X10^3/uL; Eosinophils% 5.1 % (0-5); Hematocrit 36.2 % (37-47); Hemoglobin 11.9 g/dL (12.0-15.0); Lymphocyte # 1.97 X10^3/ul (0.83-4.51); Lymphocyte % 27.1 % (19-41); Mean Corp Hgb Conc 32.9 g/dL (32-36); Mean Corpuscular Hgb 30.8 pg (27.0-32.0); Mean Corpuscular Volume 93.8 fL (81-99); Mean Platelet Vol. 10.7 fl (6.2-12.0); Monocyte# 0.59 X10^3/uL; Monocyte% 8.1 % (0-10); NRBC Flagged by Analyzer 0 % (0-5); Neutrophil # 4.28 X10^3/uL (2.7-7.7); Neutrophil % 58.7 % (47-70); Platelet Count 240 K/mm3 (150-450); RBC Distribution Width CV 12.3 % (11.6-14.6); RBC Distribution Width SD 42.9 fl (35.1-43.9); Red Blood Count 3.86 M/mm3 (4.2-5.4); White Blood Count 7.3 K/mm3 (4.4-11.0)
[2022-11-22] MEDS: 0.9% Normal Saline 1,000 ML 150 ML IV (15:05)
[2022-11-22] MEDS: hydrALAZINE 20 MG/ML Vial 5 MG IV (15:05)
[2022-11-22 15:12] LABS: Anion Gap 4 (5-15); BUN 23 mg/dL (7-18); BUN/Creat Ratio 32.5 RATIO (10-20); Calcium,Total 8.8 mg/dL (8.5-10.1); Chloride 104 mmol/L (98-107); Creatinine, Serum 0.71 mg/dL (0.55-1.02); EST Glomerular Filtration Rate 91 mL/min (>60); Est Glom Filt Rate - Afr Amer 110 mL/min (>60); Estimated Creatinine Clearance 94.66 ml/min; Glucose 85 mg/dL (74-106); Potassium 4.3 mmol/L (3.5-5.1); Sodium Level 138 mmol/L (136-145); Troponin-I HS 4 pg/mL (3.0-54.0)
[2022-11-22] MEDS: Morphine 4 MG/ML Syringe IV (15:24)
[2022-11-22] MEDS: Ondansetron 4 MG/2 ML Vial IV (15:24)
[2022-11-22 15:27] VITALS: BP 181/115; PULSE 64
[2022-11-22 15:50] VITALS: BP 164/112
[2022-11-22 16:03] VITALS: BP 162/101; PULSE 78; RESP 16; O2SAT 98
== END 2022-11-22 16:05 | disposition home or self-care (01) ==
PROVIDERS: Emergency Provider Emergency Medicine; PCP Family Medicine; Visit Provider Emergency Medicine
DX: I10 Essential (primary) hypertension (principal); J44.9 Chronic obstructive pulmonary disease, unspecified; M54.9 Dorsalgia, unspecified; E78.00 Pure hypercholesterolemia, unspecified; F17.210 Nicotine dependence, cigarettes, uncomplicated; G89.29 Other chronic pain; F32.A Depression, unspecified; Z79.899 Other long term (current) drug therapy; K21.9 Gastro-esophageal reflux disease without esophagitis; F41.9 Anxiety disorder, unspecified; E03.9 Hypothyroidism, unspecified; Z79.51 Long term (current) use of inhaled steroids; Z90.710 Acquired absence of both cervix and uterus; Z90.49 Acquired absence of other specified parts of digestive tract
CPT/HCPCS: 80048; 81001; 84484; 85025; 93005; 99283; J7030; A4216; J2405

== ENCOUNTER 2022-12-29 12:19 | Emergency (ER) | payer MEDICAID, SELFPAY ==
[2022-12-29 12:20] VITALS: BP 160/116; PULSE 67; RESP 18; TEMP 36.6; O2SAT 97; BMI 24.8
--- NOTE | 2022-12-29 12:46 | EKG12_ITS ---
Test Reason : HTN Blood Pressure : / mmHG Vent. Rate : 062 BPM Atrial Rate : 062 BPM P-R Int : 204 ms QRS Dur : 084 ms QT Int : 442 ms P-R-T Axes : 066 -04 053 degrees QTc Int : 448 ms Normal sinus rhythm Septal infarct , age undetermined Abnormal ECG Confirmed by RICCI BLACKWELL, BIBIANA ([id number]), editor & co founder DOYLE BAZZI ([id number]) on 12/30/2022 2:21:48 PM Referred By: Confirmed By:BIBIANA WYNNE MD
--- NOTE | 2022-12-29 12:46 | EX.ED.DYSGE1 ---
HPI History of Present Illness Chief Complaint: Hypertension Informant: patient Narrative Narrative: Patient states she had a bit of a diffuse headache, gradual in onset last night along with some intermittent lightheadedness that persisted until this morning. She checked her blood pressure at home because of the symptoms, she states it was 212 systolic over 100 or so. She states she called her doctor and was referred here to the ER. She took an extra dose of her metoprolol which she has been taking as prescribed and as scheduled, and now she states the symptoms are all feeling better. 160/116 here in triage, at the bedside she is 150 systolic. When asked if she has had any chest discomfort or shortness of breath, she states she had difficulty drawing in of breath earlier but denies dyspnea or symptoms of angina. No recent illness or injury or other issues, she states she has had episodes of high blood pressure several times in the past at the dentist they refused to treat me when it is high. The only other medication that is different for her is a new medication she was put on for anxiety, Vistaril. [facility] Medical History Acute cholecystitis Acute hyponatremia Acute pancreatitis Alcohol abuse Alcohol withdrawal Ambulates with cane Anemia Anemia of unknown etiology Anxiety Arthritis Chronic pain COPD (chronic obstructive pulmonary disease) Depression Desire for detoxification Distal radius fracture, right Easy bruising Elevated LFTs Excessive bleeding Gastric reflux High cholesterol History of edema Hyperglycemia Hypertension Hypothyroidism Marijuana use On home oxygen therapy Pulmonary embolism Pulmonary embolism Recurrent syncope Renal insufficiency Restless legs Shortness of breath on exertion Sleep apnea Smoker Transient hypotension Walker as ambulation aid Wears glasses Home Medications bupropion HCl 150 mg tablet,12 hr sustained-release (Wellbutrin SR) 150 mg PO DAILY depression 04/30/21 [History Last Taken 04/30/21] famotidine 20 mg tablet 20 mg PO QHS gerd 04/30/21 [History Last Taken 04/29/21] ferrous sulfate 325 mg (65 mg iron) tablet 325 mg PO BID supplement 04/30/21 [History Last Taken 04/30/21] fluoxetine 60 mg tablet 60 mg PO DAILY anxiety 04/30/21 [History Last Taken 04/30/21] levothyroxine 25 mcg tablet 25 mcg PO DAILY hypothyroid 04/30/21 [History Last Taken 04/30/21] tiotropium bromide 2.5 mcg/actuation mist for inhalation (Spiriva Respimat) 2 puff inhalation DAILY COPD 04/30/21 [History Last Taken 01/22/22] pregabalin 150 mg capsule (Lyrica) 150 mg PO TID pain 05/03/21 [History Last Taken Unknown] albuterol sulfate 2.5 mg/3 mL (0.083 %) solution for nebulization 2.5 mg inhalation Q6H PRN PRN Shortness Of Breath Or Wheezing 10/12/21 [History Last Taken 01/22/22] albuterol sulfate 90 mcg/actuation aerosol inhaler (Ventolin HFA) 1 puff inhalation Q4H PRN PRN Shortness Of Breath Or Wheezing 10/12/21 [History Last Taken Unknown] cholecalciferol (vitamin D3) 25 mcg (1,000 unit) capsule (Vitamin D3) 25 mcg PO DAILY vitamin 10/12/21 [History Last Taken Unknown] atorvastatin 40 mg tablet 40 mg PO QHS cholesterol 02/03/22 [History Last Taken Unknown] omeprazole 20 mg capsule,delayed release 20 mg PO DAILY reflux 03/25/22 [History Last Taken Unknown] thiamine HCl (vitamin B1) 50 mg tablet 50 mg PO DAILY vitamin 03/25/22 [History Last Taken Unknown] baclofen 10 mg tablet 5 mg (1/2 x 10 mg) PO BID pain #30 tabs 05/06/22 [Rx Last Taken 04/30/21] cyanocobalamin (vitamin B-12) 1,000 mcg tablet (Vitamin B-12) 1,000 mcg PO 07/27/22 [History Last Taken Unknown] fluticasone furoate 200 mcg-vilanterol 25 mcg/dose inhalation powder (Breo Ellipta) 1 inh inhalation 07/27/22 [History Last Taken Unknown] mirabegron 25 mg tablet,extended release 24 hr (Myrbetriq) 25 mg PO DAILY OVERACTIVE BLADDER 07/27/22 [History Last Taken Unknown] olanzapine 10 mg tablet 10 mg PO DAILY MOOD 10/28/22 [History Last Taken Unknown] oxybutynin chloride 10 mg tablet,extended release 24 hr 10 mg PO DAILY OVERACTIVE BLADDER 10/28/22 [History Last Taken Unknown] trazodone 150 mg tablet 150 mg PO DAILY DEPRESSION 10/28/22 [History Last Taken Unknown] hydrocodone-acetaminophen 5-325mg 5mg-325mg 1 tab PO Q4H PRN PRN Pain 2 days #10 TABLETS 11/22/22 [Rx Last Taken Unknown] amlodipine 10 mg tablet 10 mg PO DAILY #30 tabs 12/29/22 [Rx Last Taken Unknown] hydrocodone-acetaminophen 5-325mg 5mg-325mg 1 tab PO Q6H PRN PRN Pain 3 days #10 TABLETS 12/29/22 [Rx Last Taken Unknown] Allergy/AdvReac Type Severity Reaction Status Date / Time fentanyl Allergy Anaphylaxis Verified 12/29/22 12:23 varenicline [From Chantix] AdvReac hallucinati Verified 12/29/22 12:23 ons Family History Other Cancer Surgical History H/O skin graft H/O: hysterectomy Hx of cholecystectomy Hx of tonsillectomy Social History household members: none Smoking Status: Current every day smoker tobacco type: cigarettes alcohol intake: former substance use type: marijuana additional social history: disabled ROS ROS ED Constitutional Constitutional ED: Denies chills or fever(s) Eyes Eyes: Denies change in vision or diplopia ENT ENT ED: Denies rhinorrhea or sore throat Cardiovascular Cardiovascular: Reports lightheadedness; Denies chest pain or palpitations Respiratory/Chest Respiratory/Chest: Denies cough or dyspnea Gastrointestinal Gastrointestinal: Denies abdominal pain, diarrhea, nausea or vomiting Genitourinary Genitourinary ED: Denies dysuria or hematuria Musculoskeletal Musculoskeletal: Denies back pain or neck pain Integumentary Denies abscess or rash Neurologic Neurologic: Reports headache(s); Denies paresthesias or weakness Psychiatric Psychiatric: Denies anxiety or suicidal thoughts EXAM Physical Exam Const Vital Signs: 12/29/22 12:20 12/29/22 13:45 12/29/22 16:38 Temperature 97.8 F Temperature Source Temporal Pulse Rate 67 66 Respiratory Rate 18 14 Blood Pressure 160/116 H 142/98 H 174/108 H Blood Pressure Mean 130 112 130 Pulse Ox 97 96 Oxygen Delivery Method Room Air Room Air Room Air Positive well nourished and well developed Constitutional Narrative: Well-appearing in no distress, conversive in full senses, no photophobia, normal neurologic exam General Appearance ED: well developed and NAD HEENT Reports moist mucous membranes normocephalic and atraumatic Eyes PERRL and EOMs intact bilaterally Neck full ROM, no lymphadenopathy and supple Resp normal respiratory effort and clear to auscultation bilaterally Cardio regular rate, regular rhythm and no murmurs GI non-tender and non-distended Auscultation: normoactive bowel sounds Palpation: soft Back/Spine no CVA tenderness General Back: other FROM Extremity normal to inspection General Extremety ED: Negative for edema, pulses abnormal or tenderness General Extremity: Negative for edema or pulses abnormal Neuro oriented x3, CN's II-XII intact bilaterally and no sensory deficits noted Sensorium / Orientation: awake and alert Motor Exam: strength 5/5 throughout Psych mental status grossly normal Skin no rashes or lesions noted and no wounds MDM MDM MDM Narrative Medical decision making narrative: Patient had a hemogram last month I do not think that needs to be repeated. I repeated chemistries however, to rule out ERICA related to hypertension, those are within normal limits, also did an EKG which is normal in my interpretation see below. We monitored the patient's blood pressure while we did these tests. It came down without treatment. Patient is doing well I do not think she needs a CT of the head since her headache improved or resolved when the blood pressure came down. Plan was to increase her blood pressure treatment and have her follow-up as an outpatient, and discussing this with the patient at discharge, she states that a couple months ago she was on lisinopril and it was discontinued because her blood pressure was low, and then she tells me that her back is hurting more than usual and she would like something for it. She initially told me that she had chronic low back pain, so asked her what she was taking at home for this, she states Tylenol, but it is worse since I fell yesterday. This is the first time she told me she had a fall yesterday. She states she was having sciatica down the right leg, and that is what caused her to fall, she has a history of that, she fell onto her right hip and has been hurting there, in her groin, and her right buttock ever since, as well as an increase in her pain across the lumbar back. On examination, she does have pain in the right groin and hip with internal/external rotation and is tender to greater trochanter, and with attempting to weight-bear. Pelvis is stable to be compression. I advised we obtain x-rays of her right hip which she was amenable to, and 3 views of my interpretation shows possibility of a nondisplaced subcapital hip fracture, which radiology also suspects. Difficult to tell on the x-ray, but I am suspicious of that on my exam. We will obtain a CT, I did discuss with orthopedics, who recommends going mainly on exam if she needs admitted for an MRI to rule out occult fracture. I reviewed the CT images and the report, which I agree with. Does not appear to be any type of radiographically visible fracture there. Furthermore there is a area of sclerosis that explains the appearance on x-ray. I reevaluated the patient after pain medication and got her up on her feet. When she bears weight on her right lower extremity, which she is able to do, she has pain in her buttock and ischial tuberosity, not anteriorly in the groin/joint. Therefore my suspicion for an occult fracture is a lot lower. She is okay going home given all of this, will prescribe her some pain medication and amlodipine. Close outpatient follow-up advised. History & Record Review Additional record(s) reviewed:: Prior outpatient record (Old labs) Lab Data Attestation: I reviewed the patient's lab results. Labs: Laboratory Results - last 24 hr 12/29/22 13:11 Sodium 134 L Potassium 4.4 Chloride 103 Carbon Dioxide 28.0 Anion Gap 3 L BUN 22 H Creatinine 0.87 Estim Creat Clear Calc 74.57 Est GFR (MDRD) Af Amer 87 Est GFR (MDRD) Non-Af 72 BUN/Creatinine Ratio 25.3 H Glucose 91 Calcium 8.5 Radiography Diagnostic Testing: Clinical Impression(s) from Imaging Studies Hip/Pelvis X-Ray 12/29/22 14:55 IMPRESSION: I suspect a nondisplaced impacted subcapital fracture of the right subcapital region. Electronically Signed: Kaushik Buck MD at 15:16 EDT , Lower Extremity CT 12/29/22 16:00 IMPRESSION: Moderate to severe right hip osteoarthritis. No evidence of acute osseous injury. Subcapital sclerosis on radiograph correlates with overhanging osteophytes Mild circumferential bladder wall thickening, likely artificially accentuated by lack of distention. Cystitis is not excluded in the appropriate setting. Electronically Signed: Sukhdeep Bustamante MD at 16:45 EDT Reading Location ID and State: [facility] / [place] Tel , Service support , Rhythm Strip Rhythm Strip: Sinus Rhythm Rate: 65 Ectopy: None EKG Initial EKG: Attestation: I personally reviewed and interpreted this EKG as follows: Interpretation: Sinus Rhythm and No Acute Injury Pattern Prior EKG tracings: available for review Prior: Unchanged Management Discussion w/another healthcare provider: Hospitalist and Manager Salt (Ortho) Discharge Plan Triage Chief Complaint: Hypertension ED Provider: German Colon Dx/Rx/DC Orders Clinical Impression: Injury of right hip, Accelerated hypertension, Acute exacerbation of chronic low back pain Instructions: Controlling High Blood Pressure, ED Hip Contusion Prescriptions: New hydrocodone-acetaminophen [hydrocodone-acetaminophen] 5-325 mg tablet 1 tab PO Q6H PRN PRN (Reason: Pain) 3 Days Qty: 10 0RF amlodipine 10 mg tablet 10 mg PO DAILY Qty: 30 0RF No Action omeprazole 20 mg capsule,delayed release(DR/EC) 20 mg PO DAILY thiamine HCl (vitamin B1) 50 mg tablet 50 mg PO DAILY cyanocobalamin (vitamin B-12) [Vitamin B-12] 1,000 mcg tablet 1,000 mcg PO fluticasone furoate-vilanterol [Breo Ellipta] 200-25 mcg/dose blister with device 1 inh inhalation Myrbetriq 25 mg tablet extended release 24 hr 25 mg PO DAILY trazodone 150 mg tablet 150 mg PO DAILY olanzapine 10 mg tablet 10 mg PO DAILY oxybutynin chloride 10 mg tablet extended release 24hr 10 mg PO DAILY bupropion HCl [Wellbutrin SR] 150 mg Tablet Sustained-Release 12 Hr 150 mg PO DAILY levothyroxine 25 mcg Tablet 25 mcg PO DAILY famotidine 20 mg Tablet 20 mg PO QHS ferrous sulfate 325 mg (65 mg iron) Tablet 325 mg PO BID fluoxetine 60 mg Tablet 60 mg PO DAILY Spiriva Respimat 2.5 mcg/actuation Mist 2 puff INHALATION DAILY pregabalin [Lyrica] 150 mg capsule 150 mg PO TID atorvastatin 40 mg tablet 40 mg PO QHS cholecalciferol (vitamin D3) [Vitamin D3] 25 mcg (1,000 unit) Capsule 25 mcg PO DAILY albuterol sulfate 2.5 mg /3 mL (0.083 %) solution for nebulization 2.5 mg inhalation Q6H PRN PRN (Reason: Shortness Of Breath Or Wheezing) albuterol sulfate [Ventolin HFA] 90 mcg/actuation HFA aerosol inhaler 1 puff INHALATION Q4H PRN PRN (Reason: Shortness Of Breath Or Wheezing) baclofen 10 mg Tablet 5 mg PO BID Qty: 30 0RF hydrocodone-acetaminophen [hydrocodone-acetaminophen] 5-325 mg tablet 1 tab PO Q4H PRN PRN (Reason: Pain) 2 Days Qty: 10 0RF Primary Care Provider: Memo Chairez Referrals: Memo Chairez MD [Primary Care Provider] - As soon as possible Disposition Disposition: Home, Self Care
[2022-12-29 13:33] LABS: Anion Gap 3 (5-15); BUN 22 mg/dL (7-18); BUN/Creat Ratio 25.3 RATIO (10-20); Calcium,Total 8.5 mg/dL (8.5-10.1); Chloride 103 mmol/L (98-107); Creatinine, Serum 0.87 mg/dL (0.55-1.02); EST Glomerular Filtration Rate 72 mL/min (>60); Est Glom Filt Rate - Afr Amer 87 mL/min (>60); Estimated Creatinine Clearance 74.57 ml/min; Glucose 91 mg/dL (74-106); Potassium 4.4 mmol/L (3.5-5.1); Sodium Level 134 mmol/L (136-145)
[2022-12-29 13:45] VITALS: BP 142/98
[2022-12-29] MEDS: traMADol 50 MG Tablet PO (14:52)
--- NOTE | 2022-12-29 14:55 | RAD_ITS ---
STUDY: X-RAY - PELVIS AND RIGHT HIP REASON FOR EXAM: Female, 52 years old. Right hip pain following a fall. TECHNIQUE: 3 views of the pelvis and hip. COMPARISON: Comparison is made with prior study dated June 24, 2022. FINDINGS: There is a non-specific bowel gas pattern. Normal visualized soft tissue structures. I suspect a nondisplaced impacted right subcapital fracture. RAD/HIP, UNI W/ Pelvis 2-3 Views IMPRESSION: I suspect a nondisplaced impacted subcapital fracture of the right subcapital region. Electronically Signed: Kaushik Buck MD at 15:16 EDT ,
--- NOTE | 2022-12-29 16:00 | CT_ITS ---
CT RIGHT LOWER EXTREMITY WITH 3-D IMAGING CLINICAL INDICATION: hip injury TECHNIQUE: Axial CT images of the RIGHT lower extremity was performed IV contrast material. Coronal and sagittal reformats were provided. RADIATION DOSAGE (If Supplied By Facility): CTDIvol = ( 13.81 ) mGy, DLP = ( 537.89 ) mGycm COMPARISON: Pelvis radiograph on same day and June 24, 2022. CT abdomen pelvis 09/10/2020 FINDINGS: Bones: No fracture or dislocation. Moderate right hip joint space narrowing and osteophyte formation, without significant change from August 13, 2020. No lytic or blastic osseous masses. Moderate lower lumbar spondylosis. Chronic focal anterior angulation of the sacrococcygeal junction. Soft Tissues: Minimal subcutaneous soft tissue edema superficial to the greater trochanter. No radiodense foreign body. Mild likely pseudowall thickening of the bladder from incomplete distention. CT/Extremity Lower without Contra IMPRESSION: Moderate to severe right hip osteoarthritis. No evidence of acute osseous injury. Subcapital sclerosis on radiograph correlates with overhanging osteophytes Mild circumferential bladder wall thickening, likely artificially accentuated by lack of distention. Cystitis is not excluded in the appropriate setting. Electronically Signed: Sukhdeep Bustamante MD at 16:45 EDT Reading Location ID and State: [facility] / [place] Tel , Service support ,
[2022-12-29] MEDS: Morphine 4 MG/ML Syringe IV (16:36)
[2022-12-29 16:38] VITALS: BP 174/108; PULSE 66; RESP 14; O2SAT 96
== END 2022-12-29 17:14 | disposition home or self-care (01) ==
PROVIDERS: Emergency Provider Emergency Medicine; PCP Family Medicine; Visit Provider Emergency Medicine
DX: I10 Essential (primary) hypertension (principal); J44.9 Chronic obstructive pulmonary disease, unspecified; M54.50 Low back pain, unspecified; F41.9 Anxiety disorder, unspecified; E78.00 Pure hypercholesterolemia, unspecified; S79.911A Unspecified injury of right hip, initial encounter; F17.210 Nicotine dependence, cigarettes, uncomplicated; Z99.81 Dependence on supplemental oxygen; F32.A Depression, unspecified; K21.9 Gastro-esophageal reflux disease without esophagitis; E03.9 Hypothyroidism, unspecified; Z79.899 Other long term (current) drug therapy; Z79.51 Long term (current) use of inhaled steroids; Z90.710 Acquired absence of both cervix and uterus; Z90.49 Acquired absence of other specified parts of digestive tract
CPT/HCPCS: 73502; 73700; 80048; 93005; 99285; A4216

== ENCOUNTER 2023-02-21 11:47 | Emergency (ER) | payer MEDICAID, SELFPAY ==
[2023-02-21 11:48] VITALS: PULSE 92; RESP 18; TEMP 37.6; O2SAT 96; BMI 25.4
[2023-02-21 11:50] VITALS: BP 146/126; PULSE 89
--- NOTE | 2023-02-21 12:04 | EKG12_ITS ---
Test Reason : Blood Pressure : / mmHG Vent. Rate : 080 BPM Atrial Rate : 080 BPM P-R Int : 176 ms QRS Dur : 100 ms QT Int : 378 ms P-R-T Axes : 063 -01 059 degrees QTc Int : 435 ms Normal sinus rhythm Normal ECG Confirmed by BIBIANA WYNNE MD ([id number]), writer editor HERNANDO WEST ([id number]) on 02/25/2023 11:31:15 AM Referred By: Confirmed By:BIBIANA WYNNE MD
[2023-02-21 12:16] LABS: Absolute Lymphocyte Count 1.86 X10^3/uL (0.83-4.51); Absolute Neutrophil Count 14.1 X10^3/uL (2.0-7.7); Basophil# 0.08 X10^3/uL; Basophil% 0.4 % (0-1); Eosinophil# 0.21 X10^3/uL; Eosinophils% 1.1 % (0-5); Hematocrit 36.7 % (37-47); Hemoglobin 12.1 g/dL (12.0-15.0); Lymphocyte # 1.86 X10^3/ul (0.83-4.51); Lymphocyte % 10.1 % (19-41); Mean Corpuscular Hgb 29.2 pg (27.0-32.0); Mean Corpuscular Volume 88.6 fL (81-99); Mean Platelet Vol. 10.3 fl (6.2-12.0); Monocyte# 1.94 X10^3/uL; Monocyte% 10.6 % (0-10); NRBC Flagged by Analyzer 0 % (0-5); Neutrophil # 14.12 X10^3/uL (2.7-7.7); Neutrophil % 77.1 % (47-70); POSITIVE DIFFERENTIAL YES; Platelet Count 269 K/mm3 (150-450); RBC Distribution Width CV 11.8 % (11.6-14.6); RBC Distribution Width SD 37.6 fl (35.1-43.9); Red Blood Count 4.14 M/mm3 (4.2-5.4); White Blood Count 18.3 K/mm3 (4.4-11.0)
--- NOTE | 2023-02-21 12:18 | RAD_ITS ---
INDICATION: chest pain EXAMINATION/TECHNIQUE: X-RAY - XR Chest 1 View COMPARISON: 11/03/2022. FINDINGS: LINES/DEVICES: None. LUNGS: Small opacity in the right lower lung new since previous exam. The lungs are otherwise clear. No evidence of pleural effusions. MEDIASTINUM AND CARDIOVASCULAR STRUCTURES: Cardiac silhouette not enlarged. Central airways and mediastinal contour are unremarkable. BONES AND SOFT TISSUES: Unremarkable. RAD/Chest 1 View (Portable) IMPRESSION: Vague right lower lung density could be due to early infiltrate. Follow-up exams is recommended. Electronically Signed: Justin Marcum MD at 12:44 EDT ,
[2023-02-21 12:24] LABS: Differential Indicated SCAN CRITERIA MET
[2023-02-21 12:45] LABS: Platelet Estimate ADEQUATE (ADEQ); Red Cell Morphology NORM C+C NORMAL (NORM C&C)
[2023-02-21 12:55] VITALS: O2SAT 93
[2023-02-21 13:00] LABS: AST(SGOT) 13 U/L (15-37); Alanine Aminotransfer ALT/SGPT 16 U/L (13-56); Albumin, Serum 3.4 g/dL (3.2-5.0); Alkaline Phosphatase 53 U/L (45-117); Anion Gap 6 (5-15); BUN 19 mg/dL (7-18); BUN/Creat Ratio 20.7 RATIO (10-20); Bilirubin, Direct 0.06 mg/dL (0.00-0.30); Calcium,Total 8.4 mg/dL (8.5-10.1); Chloride 102 mmol/L (98-107); Creatinine, Serum 0.92 mg/dL (0.55-1.02); EST Glomerular Filtration Rate 68 mL/min (>60); Est Glom Filt Rate - Afr Amer 82 mL/min (>60); Estimated Creatinine Clearance 70.52 ml/min; Globulin 3.9 g/dL (2.2-4.2); Glucose 106 mg/dL (74-106); Potassium 3.9 mmol/L (3.5-5.1); Protein, Total 7.3 g/dL (6.4-8.2); Sodium Level 134 mmol/L (136-145); Troponin-I HS (w/2H Reflex) 4 pg/mL (3.0-54.0)
[2023-02-21] MEDS: Ketorolac 15 MG/ML Vial IV (13:10)
[2023-02-21 14:02] VITALS: O2SAT 94
[2023-02-21 14:13] LABS: Reflex Troponin-HS? (from REC) Y
[2023-02-21 14:18] VITALS: PULSE 73; TEMP -9.4; TEMP 15; O2SAT 96
[2023-02-21] MEDS: levoFLOXacin 500 MG Tablet PO (14:26)
--- NOTE | 2023-02-21 14:32 | ED.RN ---
Dr. Silva notified [facility] is closed-scripts need sent to [facility]
--- NOTE | 2023-02-21 15:02 | EDS_ITS ---
HPI History of Present Illness Chief Complaint: Chest Pain Narrative Narrative: 52-year-old female presenting with chest pain that she has had since yesterday. She states it feels like somebody is stabbing her in the chest. It radiates to the back. She complains of shortness of breath. She states she also had a fever of 101 prior to coming and took Tylenol before calling EMS. She does complain of a cough. She states she was with somebody yesterday that has COVID. She complains of mild dyspnea. [facility] Medical History Acute cholecystitis Acute hyponatremia Acute pancreatitis Alcohol abuse Alcohol withdrawal Ambulates with cane Anemia Anemia of unknown etiology Anxiety Arthritis Chronic pain COPD (chronic obstructive pulmonary disease) Depression Desire for detoxification Distal radius fracture, right Easy bruising Elevated LFTs Excessive bleeding Gastric reflux High cholesterol History of edema Hyperglycemia Hypertension Hypothyroidism Marijuana use On home oxygen therapy Pulmonary embolism Pulmonary embolism Recurrent syncope Renal insufficiency Restless legs Shortness of breath on exertion Sleep apnea Smoker Transient hypotension Walker as ambulation aid Wears glasses Home Medications bupropion HCl 150 mg tablet,12 hr sustained-release (Wellbutrin SR) 150 mg PO DAILY depression 04/30/21 [History Last Taken 04/30/21] famotidine 20 mg tablet 20 mg PO QHS gerd 04/30/21 [History Last Taken 04/29/21] ferrous sulfate 325 mg (65 mg iron) tablet 325 mg PO BID supplement 04/30/21 [History Last Taken 04/30/21] fluoxetine 60 mg tablet 60 mg PO DAILY anxiety 04/30/21 [History Last Taken 04/30/21] levothyroxine 25 mcg tablet 25 mcg PO DAILY hypothyroid 04/30/21 [History Last Taken 04/30/21] tiotropium bromide 2.5 mcg/actuation mist for inhalation (Spiriva Respimat) 2 puff inhalation DAILY COPD 04/30/21 [History Last Taken 01/22/22] pregabalin 150 mg capsule (Lyrica) 150 mg PO TID pain 05/03/21 [History Last Taken Unknown] albuterol sulfate 2.5 mg/3 mL (0.083 %) solution for nebulization 2.5 mg inhalation Q6H PRN PRN Shortness Of Breath Or Wheezing 10/12/21 [History Last Taken 01/22/22] albuterol sulfate 90 mcg/actuation aerosol inhaler (Ventolin HFA) 1 puff inhalation Q4H PRN PRN Shortness Of Breath Or Wheezing 10/12/21 [History Last Taken Unknown] cholecalciferol (vitamin D3) 25 mcg (1,000 unit) capsule (Vitamin D3) 25 mcg PO DAILY vitamin 10/12/21 [History Last Taken Unknown] atorvastatin 40 mg tablet 40 mg PO QHS cholesterol 02/03/22 [History Last Taken Unknown] omeprazole 20 mg capsule,delayed release 20 mg PO DAILY reflux 03/25/22 [History Last Taken Unknown] thiamine HCl (vitamin B1) 50 mg tablet 50 mg PO DAILY vitamin 03/25/22 [History Last Taken Unknown] baclofen 10 mg tablet 5 mg (1/2 x 10 mg) PO BID pain #30 tabs 05/06/22 [Rx Last Taken 04/30/21] cyanocobalamin (vitamin B-12) 1,000 mcg tablet (Vitamin B-12) 1,000 mcg PO 07/27/22 [History Last Taken Unknown] fluticasone furoate 200 mcg-vilanterol 25 mcg/dose inhalation powder (Breo Ellipta) 1 inh inhalation 07/27/22 [History Last Taken Unknown] mirabegron 25 mg tablet,extended release 24 hr (Myrbetriq) 25 mg PO DAILY OVERACTIVE BLADDER 07/27/22 [History Last Taken Unknown] olanzapine 10 mg tablet 10 mg PO DAILY MOOD 10/28/22 [History Last Taken Unknown] oxybutynin chloride 10 mg tablet,extended release 24 hr 10 mg PO DAILY OVERACTIVE BLADDER 10/28/22 [History Last Taken Unknown] trazodone 150 mg tablet 150 mg PO DAILY DEPRESSION 10/28/22 [History Last Taken Unknown] hydrocodone-acetaminophen 5-325mg 5mg-325mg 1 tab PO Q4H PRN PRN Pain 2 days #10 TABLETS 11/22/22 [Rx Last Taken Unknown] amlodipine 10 mg tablet 10 mg PO DAILY #30 tabs 12/29/22 [Rx Last Taken Unknown] hydrocodone-acetaminophen 5-325mg 5mg-325mg 1 tab PO Q6H PRN PRN Pain 3 days #10 TABLETS 12/29/22 [Rx Last Taken Unknown] levofloxacin 500 mg tablet 500 mg PO DAILY 7 days #7 tabs 02/21/23 [Rx Last Taken Unknown] ondansetron 4 mg disintegrating tablet 4 mg PO Q8H PRN PRN Nausea #20 tabs 02/21/23 [Rx Last Taken Unknown] Allergy/AdvReac Type Severity Reaction Status Date / Time fentanyl Allergy Anaphylaxis Verified 12/29/22 12:23 [email or web address] [From Chantix] AdvReac hallucinati Verified 12/29/22 12:23 ons Family History Other Cancer Surgical History H/O skin graft H/O: hysterectomy Hx of cholecystectomy Hx of tonsillectomy Social History household members: none Smoking Status: Light Smoker (<10/day) alcohol intake: former substance use type: marijuana additional social history: disabled ROS ROS ED Constitutional Constitutional ED: Reports chills and fever(s) Eyes Eyes: Denies blurry vision or change in vision ENT ENT ED: Denies rhinorrhea Cardiovascular Cardiovascular: Reports chest pain Respiratory/Chest Respiratory/Chest: Reports cough and dyspnea Gastrointestinal Gastrointestinal: Reports nausea; Denies abdominal pain Genitourinary Genitourinary ED: Denies dysuria or hematuria Musculoskeletal Musculoskeletal: Denies arthralgias Integumentary Denies abscess Neurologic Neurologic: Denies headache(s) or paresthesias Psychiatric Psychiatric: Denies anxiety or depression EXAM Physical Exam Const Vital Signs: 02/21/23 11:48 02/21/23 11:50 02/21/23 11:50 Temperature 99.6 F H Temperature Source Temporal Pulse Rate 92 89 Respiratory Rate 18 Respiratory Effort Short of Breath Blood Pressure 146/126 H Blood Pressure Mean 132 Pulse Ox 96 Oxygen Delivery Method Room Air 02/21/23 12:09 02/21/23 12:55 02/21/23 14:18 Temperature 15 F L Temperature Source Pulse Rate 73 Respiratory Rate Respiratory Effort Short of Breath Blood Pressure Blood Pressure Mean Pulse Ox 96 Oxygen Delivery Method Room Air Room Air Positive well nourished HEENT Reports moist mucous membranes normocephalic and atraumatic Eyes PERRL Chest Wall inspection of chest normal Resp normal respiratory effort and clear to auscultation bilaterally Auscultation: Negative for rales, rhonchi or wheezes Cardio regular rate and regular rhythm GI normal to inspection, nondistended, normoactive bowel sounds Extremity normal to inspection General Extremety ED: Negative for edema or pulses abnormal General Extremity: Negative for edema or pulses abnormal Neuro oriented x3 and CN's II-XII intact bilaterally Sensorium / Orientation: awake and alert Psych mental status grossly normal Skin no rashes or lesions noted Heart Score History: Slightly/Non-Suspicious ECG: Normal Age: >45 - <65 years Risk Factors: >/= 3 Risk Factors or History of CAD Troponin: </= Normal Limit Score: 3 MDM MDM MDM Narrative Medical decision making narrative: Patient presenting with chest pain, fever, chills. Pain has been there since yesterday. Differential includes acute coronary syndrome, pneumonia, CHF, COPD exacerbation, COVID-19, influenza, dehydration, electrolyte abnormalities. Patient PERC negative. Patient given IV fluids and Toradol as he still having body aches. CBC was obtained to assess white blood cell count, hemoglobin, platelets. BMP to assess renal function and electrolytes. High-sensitivity troponin and EKG to assess for ischemia. Chest x-ray to rule out pneumonia. Blood work shows a leukocytosis of 18.3. Hemoglobin and are stable. Platelets are normal. Renal function and electrolytes within normal limits. Patient is not hypoxic. She was able to ambulate on room air and maintain normal O2 sats. Chest x-ray my interpretation shows right lower lobe pneumonia. The radiologist interprets and agrees. Given this I will start her on Levaquin. First dose given in the ER. She given Zofran for nausea. She requested narcotic pain medicine however I do not think this is warranted. I recommended Tylenol and ibuprofen for fevers and chills. Lots of fluids. Return precautions discussed Impression: 1. Community-acquired pneumonia 2. exposure to COVID-19 3. Chest pain Lab Data Attestation: I reviewed the patient's lab results. Labs: Laboratory Results - last 24 hr 02/21/23 12:08 WBC 18.3 H RBC 4.14 L Hgb 12.1 Hct 36.7 L MCV 88.6 MCH 29.2 MCHC 33.0 RDW Std Deviation 37.6 RDW Coeff of Sandeep 11.8 Plt Count 269 MPV 10.3 Immature Gran % (Auto) 0.700 Neut % (Auto) 77.1 H Lymph % (Auto) 10.1 L [place] % (Auto) 10.6 H Eos % (Auto) 1.1 Baso % (Auto) 0.4 Absolute Neuts (auto) 14.1 H Absolute Lymphs (auto) 1.86 Nucleated RBC % 0 Diff Path Review May foll Platelet Estimate ADEQUATE RBC Morphology NORM C+C Sodium 134 L Potassium 3.9 Chloride 102 Carbon Dioxide 26.0 Anion Gap 6 BUN 19 H Creatinine 0.92 Estim Creat Clear Calc 70.52 Est GFR (MDRD) Af Amer 82 Est GFR (MDRD) Non-Af 68 BUN/Creatinine Ratio 20.7 H Glucose 106 Calcium 8.4 L Total Bilirubin 0.30 Direct Bilirubin 0.06 AST 13 L ALT 16 Alkaline Phosphatase 53 Troponin I High Sens 4 Total Protein 7.3 Albumin 3.4 Globulin 3.9 Radiography Diagnostic Testing: Clinical Impression(s) from Imaging Studies Chest X-Ray 02/21/23 12:18 IMPRESSION: Vague right lower lung density could be due to early infiltrate. Follow-up exams is recommended. Electronically Signed: Justin Marcum MD at 12:44 EDT , Discharge Plan Triage Chief Complaint: Chest Pain Other Complaint: Shortness of Breath ED Provider: Agustin Silva Dx/Rx/DC Orders Instructions: ED Pneumonia (Adult) Prescriptions: New levofloxacin 500 mg tablet 500 mg PO DAILY 7 Days Qty: 7 0RF ondansetron 4 mg tablet,disintegrating 4 mg PO Q8H PRN PRN (Reason: Nausea) Qty: 20 0RF No Action omeprazole 20 mg capsule,delayed release(DR/EC) 20 mg PO DAILY thiamine HCl (vitamin B1) 50 mg tablet 50 mg PO DAILY cyanocobalamin (vitamin B-12) [Vitamin B-12] 1,000 mcg tablet 1,000 mcg PO fluticasone furoate-vilanterol [Breo Ellipta] 200-25 mcg/dose blister with device 1 inh inhalation Myrbetriq 25 mg tablet extended release 24 hr 25 mg PO DAILY trazodone 150 mg tablet 150 mg PO DAILY olanzapine 10 mg tablet 10 mg PO DAILY oxybutynin chloride 10 mg tablet extended release 24hr 10 mg PO DAILY bupropion HCl [Wellbutrin SR] 150 mg Tablet Sustained-Release 12 Hr 150 mg PO DAILY levothyroxine 25 mcg Tablet 25 mcg PO DAILY famotidine 20 mg Tablet 20 mg PO QHS ferrous sulfate 325 mg (65 mg iron) Tablet 325 mg PO BID fluoxetine 60 mg Tablet 60 mg PO DAILY Spiriva Respimat 2.5 mcg/actuation Mist 2 puff INHALATION DAILY pregabalin [Lyrica] 150 mg capsule 150 mg PO TID atorvastatin 40 mg tablet 40 mg PO QHS cholecalciferol (vitamin D3) [Vitamin D3] 25 mcg (1,000 unit) Capsule 25 mcg PO DAILY albuterol sulfate 2.5 mg /3 mL (0.083 %) solution for nebulization 2.5 mg inhalation Q6H PRN PRN (Reason: Shortness Of Breath Or Wheezing) albuterol sulfate [Ventolin HFA] 90 mcg/actuation HFA aerosol inhaler 1 puff INHALATION Q4H PRN PRN (Reason: Shortness Of Breath Or Wheezing) baclofen 10 mg Tablet 5 mg PO BID Qty: 30 0RF hydrocodone-acetaminophen [hydrocodone-acetaminophen] 5-325 mg tablet 1 tab PO Q4H PRN PRN (Reason: Pain) 2 Days Qty: 10 0RF hydrocodone-acetaminophen [hydrocodone-acetaminophen] 5-325 mg tablet 1 tab PO Q6H PRN PRN (Reason: Pain) 3 Days Qty: 10 0RF amlodipine 10 mg tablet 10 mg PO DAILY Qty: 30 0RF Stand Alone Forms: ED Work / School Excuse Primary Care Provider: Memo Chairez Referrals: Memo Chairez MD [Primary Care Provider] - Disposition Disposition: Home, Self Care Discharge Date/Time: 02/21/23 14:35
[2023-02-23 13:08] LABS: Pathologist Review Reviewed
== END 2023-02-21 14:35 | disposition home or self-care (01) ==
PROVIDERS: Emergency Provider Student in an Organized Health Care Education/Training Program; PCP Family Medicine; Visit Provider Student in an Organized Health Care Education/Training Program
DX: J18.9 Pneumonia, unspecified organism (principal); J44.9 Chronic obstructive pulmonary disease, unspecified; R11.0 Nausea; I10 Essential (primary) hypertension; Z20.822 Contact with and (suspected) exposure to COVID-19; E78.00 Pure hypercholesterolemia, unspecified; F17.200 Nicotine dependence, unspecified, uncomplicated; R07.9 Chest pain, unspecified; F32.A Depression, unspecified; K21.9 Gastro-esophageal reflux disease without esophagitis; F41.9 Anxiety disorder, unspecified; E03.9 Hypothyroidism, unspecified; Z99.81 Dependence on supplemental oxygen; Z90.710 Acquired absence of both cervix and uterus; Z90.49 Acquired absence of other specified parts of digestive tract
CPT/HCPCS: 71045; 80048; 80076; 84484; 85025; 87428; 93005; 96374; 99285; A4216

== ENCOUNTER 2023-04-29 12:15 | Emergency (ER) | payer MEDICAID, SELFPAY ==
[2023-04-29 12:16] VITALS: BP 138/91; PULSE 73; RESP 18; TEMP 36; O2SAT 100; BMI 26.5
[2023-04-29] MEDS: Morphine 4 MG/ML Syringe IV (13:15)
[2023-04-29] MEDS: Ondansetron 4 MG/2 ML Vial IV (13:15)
[2023-04-29] MEDS: Ketorolac 15 MG/ML Vial IV (13:15)
--- NOTE | 2023-04-29 13:18 | EX.ED.DYSGE1 ---
HPI History of Present Illness Chief Complaint: Numb/Ting Detail of Chief Complaint: Tingling in right and left hand Informant: patient Onset/Context/Timing Onset: Days (Onset Tuesday, April 25) Context: Sudden Onset (Acute exacerbation of chronic numbness) Timing: Continuous Quality: Numbness and tingling Location: Right and left hand and all digits and the right and left hand Current Severity: Moderate Maximum Severity: Moderate Worsened by: Nothing Relieved by: Nothing Associated Symptoms Associated Symptoms: Trouble grasping things Narrative Narrative: Patient is a 53-year-old woman who had a nerve stimulator removed. The nerve stimulator was located in the dorsal spine. She states since the stimulator was removed she has increased numbing in her hands. She contacted her primary care doctor who recommended she go to the emergency department. She denies history of autoimmune disorder. There is no history of trauma. She denies fever, chills night sweats. She denies cardiac respiratory symptoms. She has no known history of neck problems. She has no history of neck surgery. She is seen by Dr. Staley for pain management. Prior similar symptoms: Yes Recent Illness/Hospitalization: Yes [facility] Medical History Acute cholecystitis Acute hyponatremia Acute pancreatitis Alcohol abuse Alcohol withdrawal Ambulates with cane Anemia Anemia of unknown etiology Anxiety Arthritis Chronic pain COPD (chronic obstructive pulmonary disease) Depression Desire for detoxification Distal radius fracture, right Easy bruising Elevated LFTs Excessive bleeding Gastric reflux High cholesterol History of edema Hyperglycemia Hypertension Hypothyroidism Marijuana use On home oxygen therapy Pulmonary embolism Pulmonary embolism Recurrent syncope Renal insufficiency Restless legs Shortness of breath on exertion Sleep apnea Smoker Transient hypotension Walker as ambulation aid Wears glasses Home Medications bupropion HCl 150 mg tablet,12 hr sustained-release (Wellbutrin SR) 150 mg PO DAILY depression 04/30/21 [History Last Taken 04/30/21] famotidine 20 mg tablet 20 mg PO QHS gerd 04/30/21 [History Last Taken 04/29/21] ferrous sulfate 325 mg (65 mg iron) tablet 325 mg PO BID supplement 04/30/21 [History Last Taken 04/30/21] fluoxetine 60 mg tablet 60 mg PO DAILY anxiety 04/30/21 [History Last Taken 04/30/21] levothyroxine 25 mcg tablet 25 mcg PO DAILY hypothyroid 04/30/21 [History Last Taken 04/30/21] tiotropium bromide 2.5 mcg/actuation mist for inhalation (Spiriva Respimat) 2 puff inhalation DAILY COPD 04/30/21 [History Last Taken 01/22/22] pregabalin 150 mg capsule (Lyrica) 150 mg PO TID pain 05/03/21 [History Last Taken Unknown] albuterol sulfate 2.5 mg/3 mL (0.083 %) solution for nebulization 2.5 mg inhalation Q6H PRN PRN Shortness Of Breath Or Wheezing 10/12/21 [History Last Taken 01/22/22] albuterol sulfate 90 mcg/actuation aerosol inhaler (Ventolin HFA) 1 puff inhalation Q4H PRN PRN Shortness Of Breath Or Wheezing 10/12/21 [History Last Taken Unknown] cholecalciferol (vitamin D3) 25 mcg (1,000 unit) capsule (Vitamin D3) 25 mcg PO DAILY vitamin 10/12/21 [History Last Taken Unknown] atorvastatin 40 mg tablet 40 mg PO QHS cholesterol 02/03/22 [History Last Taken Unknown] omeprazole 20 mg capsule,delayed release 20 mg PO DAILY reflux 03/25/22 [History Last Taken Unknown] thiamine HCl (vitamin B1) 50 mg tablet 50 mg PO DAILY vitamin 03/25/22 [History Last Taken Unknown] baclofen 10 mg tablet 5 mg (1/2 x 10 mg) PO BID pain #30 tabs 05/06/22 [Rx Last Taken 04/30/21] cyanocobalamin (vitamin B-12) 1,000 mcg tablet (Vitamin B-12) 1,000 mcg PO 07/27/22 [History Last Taken Unknown] fluticasone furoate 200 mcg-vilanterol 25 mcg/dose inhalation powder (Breo Ellipta) 1 inh inhalation 07/27/22 [History Last Taken Unknown] mirabegron 25 mg tablet,extended release 24 hr (Myrbetriq) 25 mg PO DAILY OVERACTIVE BLADDER 07/27/22 [History Last Taken Unknown] olanzapine 10 mg tablet 10 mg PO DAILY MOOD 10/28/22 [History Last Taken Unknown] oxybutynin chloride 10 mg tablet,extended release 24 hr 10 mg PO DAILY OVERACTIVE BLADDER 10/28/22 [History Last Taken Unknown] trazodone 150 mg tablet 150 mg PO DAILY DEPRESSION 10/28/22 [History Last Taken Unknown] hydrocodone-acetaminophen 5-325mg 5mg-325mg 1 tab PO Q4H PRN PRN Pain 2 days #10 TABLETS 11/22/22 [Rx Last Taken Unknown] amlodipine 10 mg tablet 10 mg PO DAILY #30 tabs 12/29/22 [Rx Last Taken Unknown] hydrocodone-acetaminophen 5-325mg 5mg-325mg 1 tab PO Q6H PRN PRN Pain 3 days #10 TABLETS 12/29/22 [Rx Last Taken Unknown] levofloxacin 500 mg tablet 500 mg PO DAILY 7 days #7 tabs 02/21/23 [Rx Last Taken Unknown] ondansetron 4 mg disintegrating tablet 4 mg PO Q8H PRN PRN Nausea #20 tabs 02/21/23 [Rx Last Taken Unknown] Allergy/AdvReac Type Severity Reaction Status Date / Time fentanyl Allergy Anaphylaxis Verified 12/29/22 12:23 varenicline [From Chantix] AdvReac hallucinati Verified 12/29/22 12:23 ons Family History Other Cancer Surgical History H/O skin graft H/O: hysterectomy Hx of cholecystectomy Hx of tonsillectomy Social History household members: none Smoking Status: Current every day smoker tobacco type: cigarettes alcohol intake: former substance use type: marijuana additional social history: disabled ROS ROS ED Constitutional Constitutional ED: Denies chills, fever(s), subjective, sweats or weight loss Eyes Eyes: Denies blurry vision, change in vision or diplopia ENT ENT ED: Denies ear pain, rhinorrhea or sore throat Cardiovascular Cardiovascular: Denies chest pain or palpitations Respiratory/Chest Respiratory/Chest: Denies cough, dyspnea or dyspnea on exertion Gastrointestinal Gastrointestinal: Denies abdominal pain, nausea or vomiting Genitourinary Genitourinary ED: Denies dysuria, hematuria or urinary frequency Musculoskeletal Musculoskeletal: Reports neck pain; Denies arthralgias, back pain or myalgias Integumentary Denies rash Neurologic Neurologic: Reports paresthesias RUE and LUE and weakness; Denies headache(s) Psychiatric Psychiatric: Denies anxiety Hematologic/Lymphatic Hematologic/Lymphatic: Reports systems reviewed and no addt'l complaints, except as documented EXAM Physical Exam Const Vital Signs: 04/29/23 12:16 Temperature 96.8 F L Temperature Source Temporal Pulse Rate 73 Respiratory Rate 18 Blood Pressure 138/91 H Blood Pressure Mean 106 Pulse Ox 100 Oxygen Delivery Method Room Air Positive well nourished and well developed General Appearance ED: well developed; Negative for cyanotic, diaphoretic or pallor HEENT Reports moist mucous membranes HEENT Narrative: Head is atraumatic and normocephalic. Ears are normal. Nares patent. Posterior pharynx is normal. Eyes PERRL and EOMs intact bilaterally General Eye ED: Negative for pale conjunctiva or scleral icterus Neck no lymphadenopathy, supple and no JVD Neck Narrative: There is no limitation with flexion extension of the neck or rotation to the right or left. She does have paracervical discomfort. There is bilateral trapezius discomfort. Resp normal respiratory effort and clear to auscultation bilaterally Cardio regular rate, regular rhythm, S1 normal heart sound, S2 normal heart sound and no murmurs GI normal to inspection, nondistended, normoactive bowel sounds, non-tender, non-distended and no masses; Negative for hepatosplenomegaly Extremity normal to inspection Neuro oriented x3, CN's II-XII intact bilaterally and No no sensory deficits noted Neuro Narrative: Patient complains of numbness in right and left hand. Patient states she cannot grasp tightly because of pain. Bicep, brachialis and tricep reflex are 1+. Patella and ankle reflex are 1+. There is no clonus or Babinski sign. Axillary, median, radial and ulnar function intact. Motor strength in my opinion is 5/5 all major muscle groups upper extremity. Sensorium / Orientation: alert Psych Mood & Affect: depressed Skin no rashes or lesions noted, no wounds and No skin turgor normal General Skin Exam: Negative for jaundice or pallor MDM MDM MDM Narrative Medical decision making narrative: Review of old records indicates patient has not had imaging of her neck. Will obtain x-ray of the neck with oblique films. We will determine if there is any evidence of foraminal stenosis or significant degenerative changes. This patient has a nonfocal neurologic exam and suspect her weakness is due to pain and not true motor weakness and the fact that this numbness has been present for some time in my opinion patient does not need emergent advanced imaging. She was medicated with morphine and Toradol 4 mg and 50 mg respectively IV push. Baseline blood work was obtained to assess for possible autoimmune disease. Lab Data Attestation: I reviewed the patient's lab results. Lab results narrative: CBC is unremarkable. Basic metabolic panel is unremarkable. Liver enzymes and calcium and protein are unremarkable. Labs: Laboratory Results - last 24 hr 04/29/23 13:18 WBC 7.7 RBC 4.64 Hgb 13.1 Hct 42.4 MCV 91.4 MCH 28.2 MCHC 30.9 L RDW Std Deviation 44.1 H RDW Coeff of Sandeep 13.2 Plt Count 268 MPV 10.7 Immature Gran % (Auto) 0.300 Neut % (Auto) 62.1 Lymph % (Auto) 25.6 Letcher % (Auto) 7.7 Eos % (Auto) 3.5 Baso % (Auto) 0.8 Absolute Neuts (auto) 4.8 Absolute Lymphs (auto) 1.96 Nucleated RBC % 0 Sodium 139 Potassium 4.1 Chloride 105 Carbon Dioxide 27.0 Anion Gap 7 BUN 14 Creatinine 0.72 Estim Creat Clear Calc 89.06 Est GFR (MDRD) Af Amer 109 Est GFR (MDRD) Non-Af 90 BUN/Creatinine Ratio 19.5 Glucose 97 Calcium 8.9 Total Bilirubin 0.30 AST 28 ALT 37 Alkaline Phosphatase 53 Total Protein 7.6 Albumin 3.3 Globulin 4.3 H Albumin/Globulin Ratio 0.8 L Radiography Chest X-Ray - ED: Read by ED Physician (5 view x-ray of the neck/cervical spine reveals loss of lordotic curvature. There is mild narrowing at C5-6. Radiologist noted minor anterior listhesis of C3 on 4 and C4 on 5. There is no narrowing of the nerve root foramens. This was reviewed interpreted by me and radiology note was noted with ) Diagnostic Testing: Clinical Impression(s) from Imaging Studies Cervical Spine X-Ray 04/29/23 13:30 IMPRESSION: Loss of the normal cervical lordosis. Mild degree of disc space narrowing and spondylosis at the C5-C6 level. Minimal anterior listhesis of C3 on C4 and C4 on C5. Electronically Signed: Kaushik Buck MD at 13:58 EST , Treatment and Re-Evaluation :: Patient was informed of her findings at 1548. She is moving her hands more freely. She was told this is not related to a herniated disc. She has what is known as peripheral neuropathy. She will need to follow-up with her doctor get a referral to neurology for outpatient testing. Discharge Plan Triage Chief Complaint: Numb/Ting Other Complaint: Back ED Provider: Sky Serrano Dx/Rx/DC Orders Clinical Impression: Paresthesia of both hands, Hypertension, Anxiety and depression, HLD (hyperlipidemia), Neuropathic pain of left hand, Neuropathy of right hand Instructions: ED Neuropathy, Peripheral, ED Paraesthesias Prescriptions: No Action omeprazole 20 mg capsule,delayed release(DR/EC) 20 mg PO DAILY thiamine HCl (vitamin B1) 50 mg tablet 50 mg PO DAILY cyanocobalamin (vitamin B-12) [Vitamin B-12] 1,000 mcg tablet 1,000 mcg PO fluticasone furoate-vilanterol [Breo Ellipta] 200-25 mcg/dose blister with device 1 inh inhalation Myrbetriq 25 mg tablet extended release 24 hr 25 mg PO DAILY trazodone 150 mg tablet 150 mg PO DAILY olanzapine 10 mg tablet 10 mg PO DAILY oxybutynin chloride 10 mg tablet extended release 24hr 10 mg PO DAILY bupropion HCl [Wellbutrin SR] 150 mg Tablet Sustained-Release 12 Hr 150 mg PO DAILY levothyroxine 25 mcg Tablet 25 mcg PO DAILY famotidine 20 mg Tablet 20 mg PO QHS ferrous sulfate 325 mg (65 mg iron) Tablet 325 mg PO BID fluoxetine 60 mg Tablet 60 mg PO DAILY Spiriva Respimat 2.5 mcg/actuation Mist 2 puff INHALATION DAILY pregabalin [Lyrica] 150 mg capsule 150 mg PO TID atorvastatin 40 mg tablet 40 mg PO QHS cholecalciferol (vitamin D3) [Vitamin D3] 25 mcg (1,000 unit) Capsule 25 mcg PO DAILY albuterol sulfate 2.5 mg /3 mL (0.083 %) solution for nebulization 2.5 mg inhalation Q6H PRN PRN (Reason: Shortness Of Breath Or Wheezing) albuterol sulfate [Ventolin HFA] 90 mcg/actuation HFA aerosol inhaler 1 puff INHALATION Q4H PRN PRN (Reason: Shortness Of Breath Or Wheezing) baclofen 10 mg Tablet 5 mg PO BID Qty: 30 0RF hydrocodone-acetaminophen [hydrocodone-acetaminophen] 5-325 mg tablet 1 tab PO Q4H PRN PRN (Reason: Pain) 2 Days Qty: 10 0RF hydrocodone-acetaminophen [hydrocodone-acetaminophen] 5-325 mg tablet 1 tab PO Q6H PRN PRN (Reason: Pain) 3 Days Qty: 10 0RF amlodipine 10 mg tablet 10 mg PO DAILY Qty: 30 0RF levofloxacin 500 mg tablet 500 mg PO DAILY 7 Days Qty: 7 0RF ondansetron 4 mg tablet,disintegrating 4 mg PO Q8H PRN PRN (Reason: Nausea) Qty: 20 0RF Primary Care Provider: Memo Chairez Referrals: Memo Chairez MD [Primary Care Provider] - 3-5 Days Activity Restrictions/Additional Instructions: We will need to follow-up with your doctor and/or Dr. Staley for referral to neurology for outpatient work-up Disposition Disposition: Home, Self Care
--- NOTE | 2023-04-29 13:30 | RAD_ITS ---
STUDY: X-RAY - CERVICAL SPINE REASON FOR EXAM: Female, 53 years old. Neck pain, bilateral hand numbness TECHNIQUE: 5 view(s) of the cervical spine were obtained including oblique views. COMPARISON: None FINDINGS: Normal anterior atlantoaxial articulation. Normal odontoid process. There is straightening of the normal cervical lordosis. . Mild degree of disc space narrowing at the C5-C6 with anterior spondylosis. Minimal anterior listhesis of C2-3 on C4 and C4 on C5 most likely secondary to facet joint osteoarthritis. The soft tissue structures are unremarkable. RAD/Cerv Spine 4 or 5 Views IMPRESSION: Loss of the normal cervical lordosis. Mild degree of disc space narrowing and spondylosis at the C5-C6 level. Minimal anterior listhesis of C3 on C4 and C4 on C5. Electronically Signed: Kaushik Buck MD at 13:58 EST ,
[2023-04-29 13:31] LABS: Absolute Lymphocyte Count 1.96 X10^3/uL (0.83-4.51); Absolute Neutrophil Count 4.8 X10^3/uL (2.0-7.7); Basophil# 0.06 X10^3/uL; Basophil% 0.8 % (0-1); Eosinophil# 0.27 X10^3/uL; Eosinophils% 3.5 % (0-5); Hematocrit 42.4 % (37-47); Hemoglobin 13.1 g/dL (12.0-15.0); Lymphocyte # 1.96 X10^3/ul (0.83-4.51); Lymphocyte % 25.6 % (19-41); Mean Corp Hgb Conc 30.9 g/dL (32-36); Mean Corpuscular Hgb 28.2 pg (27.0-32.0); Mean Corpuscular Volume 91.4 fL (81-99); Mean Platelet Vol. 10.7 fl (6.2-12.0); Monocyte# 0.59 X10^3/uL; Monocyte% 7.7 % (0-10); NRBC Flagged by Analyzer 0 % (0-5); Neutrophil # 4.76 X10^3/uL (2.7-7.7); Neutrophil % 62.1 % (47-70); Platelet Count 268 K/mm3 (150-450); RBC Distribution Width CV 13.2 % (11.6-14.6); RBC Distribution Width SD 44.1 fl (35.1-43.9); Red Blood Count 4.64 M/mm3 (4.2-5.4); White Blood Count 7.7 K/mm3 (4.4-11.0)
[2023-04-29 13:48] LABS: ALB/GLOB Ratio 0.8 RATIO (0.9-2.4); AST(SGOT) 28 U/L (15-37); Alanine Aminotransfer ALT/SGPT 37 U/L (13-56); Albumin, Serum 3.3 g/dL (3.2-5.0); Alkaline Phosphatase 53 U/L (45-117); Anion Gap 7 (5-15); BUN 14 mg/dL (7-18); BUN/Creat Ratio 19.5 RATIO (10-20); Calcium,Total 8.9 mg/dL (8.5-10.1); Chloride 105 mmol/L (98-107); Creatinine, Serum 0.72 mg/dL (0.55-1.02); EST Glomerular Filtration Rate 90 mL/min (>60); Est Glom Filt Rate - Afr Amer 109 mL/min (>60); Estimated Creatinine Clearance 89.06 ml/min; Globulin 4.3 g/dL (2.2-4.2); Glucose 97 mg/dL (74-106); Potassium 4.1 mmol/L (3.5-5.1); Protein, Total 7.6 g/dL (6.4-8.2); Sodium Level 139 mmol/L (136-145)
[2023-04-29 16:13] VITALS: PULSE 75; RESP 18; O2SAT 95
== END 2023-04-29 16:15 | disposition home or self-care (01) ==
PROVIDERS: Emergency Provider Emergency Medicine; PCP Family Medicine; Visit Provider Emergency Medicine
DX: R20.2 Paresthesia of skin (principal); J44.9 Chronic obstructive pulmonary disease, unspecified; F17.210 Nicotine dependence, cigarettes, uncomplicated; G62.9 Polyneuropathy, unspecified; I10 Essential (primary) hypertension; E78.5 Hyperlipidemia, unspecified; F41.9 Anxiety disorder, unspecified; F32.A Depression, unspecified; K21.9 Gastro-esophageal reflux disease without esophagitis; E03.9 Hypothyroidism, unspecified; Z79.899 Other long term (current) drug therapy; Z79.51 Long term (current) use of inhaled steroids; Z99.81 Dependence on supplemental oxygen; Z90.710 Acquired absence of both cervix and uterus; Z90.49 Acquired absence of other specified parts of digestive tract
CPT/HCPCS: 72050; 80053; 85025; 96374; 96375; 99283; A4216; J2405

== ENCOUNTER 2023-05-15 09:33 | Inpatient (IN) | payer MEDICAID, SELFPAY ==
[2023-05-15 09:35] VITALS: BP 140/111; PULSE 84; RESP 20; TEMP 36.7; O2SAT 97; BMI 27.1
--- NOTE | 2023-05-15 10:50 | CT_ITS ---
STUDY: CT BRAIN WITHOUT CONTRAST REASON FOR EXAM: Female, 53 years old. Head injury RADIATION DOSAGE (If Supplied By Facility): CTDIvol = ( 44.99 ) mGy, DLP = ( 779.24 ) mGycm TECHNIQUE: Transaxial CT imaging of the brain was performed without administration of intravenous contrast material. Individualized dose optimization techniques were used for this CT. COMPARISON: Head CT dated November 03, 2022 FINDINGS: Normal soft tissue structures. Normal calvarium. No visualized skull fracture or pneumocephalus or subdural hemorrhage. No visualized midline shift. Normal size ventricles and extra-axial spaces for the patient''s age. Normal white matter tracts of the cerebral hemispheres. Normal basal ganglia and thalami. Normal brainstem. Normal cerebellum. There is no intracranial hemorrhage. There are no findings of an acute ischemic infarction. Moderate size mucus retention cysts of the right maxillary sinus noted. CT/Brain/Head without Contrast IMPRESSION: Normal unenhanced CT scan of the brain. Electronically Signed: Alvaro Mata MD at 12:47 EST ,
--- NOTE | 2023-05-15 10:50 | CT_ITS ---
STUDY: CT CERVICAL SPINE WITHOUT CONTRAST REASON FOR EXAM: Female, 53 years old. neck injury RADIATION DOSAGE (If Supplied By Facility): CTDIvol = ( 22.06 ) mGy, DLP = ( 522.83 ) mGycm TECHNIQUE: High resolution transaxial imaging was performed without contrast material. Sagittal and coronal images were reconstructed. Individualized dose optimization techniques were used for this CT. COMPARISON: CT of the cervical spine dated June 24, 2022 FINDINGS: Normal craniovertebral junction. Normal anterior atlantoaxial articulation. Normal odontoid process. Normal cervical lordosis. No visualized acute fracture or compression deformity. No demonstrated jumped facets. Multilevel degenerative changes are present. No visualized fractures of the transverse processes or remaining posterior elements. Normal visualized soft tissue structures. CT/Spine Cervical without Contras IMPRESSION: Multilevel degenerative changes, as described above. Electronically Signed: Alvaro Mata MD at 12:50 EST ,
[2023-05-15] MEDS: Morphine 4 MG/ML Syringe IV ×2 (11:02→14:26)
[2023-05-15] MEDS: 0.9% Normal Saline (1000mL) 1,000 ML 1000 ML IV (11:02)
[2023-05-15] MEDS: Ondansetron 4 MG/2 ML Vial IV (11:03)
[2023-05-15 11:23] LABS: Absolute Lymphocyte Count 1.93 X10^3/uL (0.83-4.51); Absolute Neutrophil Count 4.7 X10^3/uL (2.0-7.7); Basophil# 0.05 X10^3/uL; Basophil% 0.6 % (0-1); Eosinophil# 0.33 X10^3/uL; Eosinophils% 4.1 % (0-5); Hemoglobin 12.5 g/dL (12.0-15.0); Lymphocyte # 1.93 X10^3/ul (0.83-4.51); Lymphocyte % 24.2 % (19-41); Mean Corp Hgb Conc 33.8 g/dL (32-36); Mean Corpuscular Hgb 29.3 pg (27.0-32.0); Mean Corpuscular Volume 86.9 fL (81-99); Mean Platelet Vol. 10.1 fl (6.2-12.0); Monocyte# 1.01 X10^3/uL; Monocyte% 12.6 % (0-10); NRBC Flagged by Analyzer 0 % (0-5); Neutrophil # 4.65 X10^3/uL (2.7-7.7); Neutrophil % 58.2 % (47-70); Platelet Count 259 K/mm3 (150-450); RBC Distribution Width CV 13.2 % (11.6-14.6); RBC Distribution Width SD 41.4 fl (35.1-43.9); Red Blood Count 4.26 M/mm3 (4.2-5.4)
--- NOTE | 2023-05-15 11:30 | RAD_ITS ---
STUDY: X-RAY - PELVIS AND RIGHT HIP REASON FOR EXAM: Female, 53 years old. pain TECHNIQUE: 3 views of the pelvis and hip. COMPARISON: Hip x-ray dated December 29, 2022 FINDINGS: There is a non-specific bowel gas pattern. Normal visualized soft tissue structures. Normal bilateral iliac wings, sacroiliac joints and visualized sacrum. Normal bilateral superior and inferior pubic rami. Normal pubic symphysis. Normal bilateral ischial tuberosities. Normal visualized femoral head. Normal acetabulum. Mild axial narrowing of the right hip joint with mild to moderate ring osteophyte formation at the right femoral head neck junction. There are no fractures of the hips or pelvis or sacrum or pubic rami. The left hip joint is preserved. RAD/HIP, UNI W/ Pelvis 2-3 Views IMPRESSION: 1. Mild axial narrowing of the right hip joint with mild to moderate ring osteophyte formation at the right femoral head neck junction. There are no fractures of the hips or pelvis or sacrum or pubic rami. The left hip joint is preserved. Electronically Signed: Alvaro Mata MD at 12:39 EST ,
--- NOTE | 2023-05-15 11:30 | RAD_ITS ---
STUDY: X-RAY - LUMBAR SPINE REASON FOR EXAM: Female, 53 years old. pain TECHNIQUE: 2 view(s) of the lumbar spine were obtained. COMPARISON: MR lumbar spine dated October 20, 2022 FINDINGS: There is straightening of the normal lumbar lordosis. There is no substantial scoliosis. There is a normal alignment of the vertebrae. Moderate to severe disc space narrowing is present from L1-L2 to L4-L5. Moderate paravertebral endplate osteophyte formation is also present. No visualized fracture or compression deformity. The soft tissue structures are unremarkable. RAD/Lumbar Spine 2 or 3 Views IMPRESSION: Degenerative changes of the spine, as detailed above. Electronically Signed: Alvaro Mata MD at 12:36 EST ,
[2023-05-15 11:40] LABS: ALB/GLOB Ratio 0.9 RATIO (0.9-2.4); AST(SGOT) 16 U/L (15-37); Alanine Aminotransfer ALT/SGPT 19 U/L (13-56); Albumin, Serum 3.7 g/dL (3.2-5.0); Alkaline Phosphatase 59 U/L (45-117); Anion Gap 8 (5-15); BUN 25 mg/dL (7-18); BUN/Creat Ratio 31.9 RATIO (10-20); Chloride 104 mmol/L (98-107); Creatinine, Serum 0.78 mg/dL (0.55-1.02); EST Glomerular Filtration Rate 81 mL/min (>60); Est Glom Filt Rate - Afr Amer 98 mL/min (>60); Estimated Creatinine Clearance 82.21 ml/min; Globulin 4.1 g/dL (2.2-4.2); Glucose 97 mg/dL (74-106); Potassium 3.3 mmol/L (3.5-5.1); Protein, Total 7.8 g/dL (6.4-8.2); Sodium Level 137 mmol/L (136-145)
[2023-05-15 11:58] VITALS: BP 152/106; PULSE 84; O2SAT 98
[2023-05-15] MEDS: Ketorolac 15 MG/ML Vial IV (12:30)
--- NOTE | 2023-05-15 12:53 | EX.ED.GENINJ ---
HPI History of Present Illness Chief Complaint: Fall Narrative Narrative: 3-year-old female presenting with back pain, right hip pain, neck pain. She states she fell today. She states she was unable to get up. She states that her legs have been weak and she had history of recent repeated falls. Patient states she sees pain management for her chronic back pain. Previously had a spinal stimulator in which was removed. Patient states that at this point she does not feel safe at home because she keeps falling. She is unable to get up off the floor. She has a history of chronic back pain. She states she is only on Lyrica for pain. Denies fever, chills. Denies urinary or vaginal complaints. Denies chest pain or shortness of breath. She states she did hit her head today. She has not have any dizziness, nauseousness, lightheadedness, visual complaints. Patient states is not on a blood thinner. [facility] Medical History Acute cholecystitis Acute hyponatremia Acute pancreatitis Alcohol abuse Alcohol withdrawal Ambulates with cane Anemia Anemia of unknown etiology Anxiety Arthritis Chronic pain COPD (chronic obstructive pulmonary disease) Depression Desire for detoxification Distal radius fracture, right Easy bruising Elevated LFTs Excessive bleeding Gastric reflux High cholesterol History of edema Hyperglycemia Hypertension Hypothyroidism Marijuana use On home oxygen therapy Pulmonary embolism Pulmonary embolism Recurrent syncope Renal insufficiency Restless legs Shortness of breath on exertion Sleep apnea Smoker Transient hypotension Walker as ambulation aid Wears glasses Home Medications bupropion HCl 150 mg tablet,12 hr sustained-release (Wellbutrin SR) 150 mg PO DAILY depression 04/30/21 [History Last Taken 04/30/21] famotidine 20 mg tablet 20 mg PO QHS gerd 04/30/21 [History Last Taken 04/29/21] ferrous sulfate 325 mg (65 mg iron) tablet 325 mg PO BID supplement 04/30/21 [History Last Taken 04/30/21] fluoxetine 60 mg tablet 60 mg PO DAILY anxiety 04/30/21 [History Last Taken 04/30/21] levothyroxine 25 mcg tablet 25 mcg PO DAILY hypothyroid 04/30/21 [History Last Taken 04/30/21] tiotropium bromide 2.5 mcg/actuation mist for inhalation (Spiriva Respimat) 2 puff inhalation DAILY COPD 04/30/21 [History Last Taken 01/22/22] pregabalin 150 mg capsule (Lyrica) 150 mg PO TID pain 05/03/21 [History Last Taken Unknown] albuterol sulfate 2.5 mg/3 mL (0.083 %) solution for nebulization 2.5 mg inhalation Q6H PRN PRN Shortness Of Breath Or Wheezing 10/12/21 [History Last Taken 01/22/22] albuterol sulfate 90 mcg/actuation aerosol inhaler (Ventolin HFA) 1 puff inhalation Q4H PRN PRN Shortness Of Breath Or Wheezing 10/12/21 [History Last Taken Unknown] cholecalciferol (vitamin D3) 25 mcg (1,000 unit) capsule (Vitamin D3) 25 mcg PO DAILY vitamin 10/12/21 [History Last Taken Unknown] atorvastatin 40 mg tablet 40 mg PO QHS cholesterol 02/03/22 [History Last Taken Unknown] omeprazole 20 mg capsule,delayed release 20 mg PO DAILY reflux 03/25/22 [History Last Taken Unknown] thiamine HCl (vitamin B1) 50 mg tablet 50 mg PO DAILY vitamin 03/25/22 [History Last Taken Unknown] baclofen 10 mg tablet 5 mg (1/2 x 10 mg) PO BID pain #30 tabs 05/06/22 [Rx Last Taken 04/30/21] cyanocobalamin (vitamin B-12) 1,000 mcg tablet (Vitamin B-12) 1,000 mcg PO 07/27/22 [History Last Taken Unknown] fluticasone furoate 200 mcg-vilanterol 25 mcg/dose inhalation powder (Breo Ellipta) 1 inh inhalation 07/27/22 [History Last Taken Unknown] mirabegron 25 mg tablet,extended release 24 hr (Myrbetriq) 25 mg PO DAILY OVERACTIVE BLADDER 07/27/22 [History Last Taken Unknown] olanzapine 10 mg tablet 10 mg PO DAILY MOOD 10/28/22 [History Last Taken Unknown] oxybutynin chloride 10 mg tablet,extended release 24 hr 10 mg PO DAILY OVERACTIVE BLADDER 10/28/22 [History Last Taken Unknown] trazodone 150 mg tablet 150 mg PO DAILY DEPRESSION 10/28/22 [History Last Taken Unknown] hydrocodone-acetaminophen 5-325mg 5mg-325mg 1 tab PO Q4H PRN PRN Pain 2 days #10 TABLETS 11/22/22 [Rx Last Taken Unknown] amlodipine 10 mg tablet 10 mg PO DAILY #30 tabs 12/29/22 [Rx Last Taken Unknown] hydrocodone-acetaminophen 5-325mg 5mg-325mg 1 tab PO Q6H PRN PRN Pain 3 days #10 TABLETS 12/29/22 [Rx Last Taken Unknown] levofloxacin 500 mg tablet 500 mg PO DAILY 7 days #7 tabs 02/21/23 [Rx Last Taken Unknown] ondansetron 4 mg disintegrating tablet 4 mg PO Q8H PRN PRN Nausea #20 tabs 02/21/23 [Rx Last Taken Unknown] Allergy/AdvReac Type Severity Reaction Status Date / Time fentanyl Allergy Anaphylaxis Verified 05/15/23 09:39 [email or web address] [From Chantix] AdvReac hallucinati Verified 05/15/23 09:39 ons Family History Other Cancer Surgical History H/O skin graft H/O: hysterectomy Hx of cholecystectomy Hx of tonsillectomy Social History household members: none Smoking Status: Current every day smoker tobacco type: cigarettes alcohol intake: former substance use type: marijuana additional social history: disabled ROS ROS ED Constitutional Constitutional ED: Denies chills, fever(s) or sweats Eyes Eyes: Denies blurry vision or change in vision ENT ENT ED: Denies ear pain or sore throat Cardiovascular Cardiovascular: Denies chest pain, palpitations or racing heartbeat Respiratory/Chest Respiratory/Chest: Denies cough, dyspnea or sputum Gastrointestinal Gastrointestinal: Denies abdominal pain, constipation, diarrhea, nausea or vomiting Genitourinary Genitourinary ED: Denies dysuria, hematuria or urinary frequency Musculoskeletal Musculoskeletal: Reports back pain, neck pain and other Details: Right hip pain ; Denies arthralgias or myalgias Integumentary Denies abscess, Abrasions or rash Neurologic Neurologic: Denies headache(s), paresthesias or weakness Psychiatric Psychiatric: Denies anxiety, depression, suicidal ideation or suicidal thoughts Endocrine Endocrinology: Denies polydipsia or polyuria EXAM Physical Exam Const Vital Signs: 05/15/23 09:35 05/15/23 09:40 05/15/23 11:58 Temperature 98.1 F Temperature Source Temporal Pulse Rate 84 84 Respiratory Rate 20 H Respiratory Effort Normal Non-Labored Respiratory Depth Normal Respiratory Pattern Normal Blood Pressure 140/111 H 152/106 H Blood Pressure Mean 120 121 Pulse Ox 97 98 Oxygen Delivery Method Room Air Room Air 05/15/23 12:59 Temperature Temperature Source Pulse Rate 74 Respiratory Rate 16 Respiratory Effort Respiratory Depth Respiratory Pattern Blood Pressure 118/91 H Blood Pressure Mean 100 Pulse Ox 98 Oxygen Delivery Method Room Air MDM MDM MDM Narrative Medical decision making narrative: Patient presenting with neck, back pain. Just has right hip pain. Patient reports mechanical fall at home. She also describes head injury without LOC. Is not anticoagulated. Differential includes concussion, intracranial hemorrhage, skull fracture, C-spine fracture, lumbar contusion, lumbar spinal fracture, sacral contusion, dehydration, electrolyte abnormalities. CBC was obtained to assess white blood cell count, hemoglobin, platelets. CMP to assess liver function, renal function, electrolytes. These are both unremarkable. CT brain and cervical spine were obtained and show no acute process. X-rays of the lumbar spine and right hip on my interpretation showed no acute fracture or subluxation. Patient given 2 doses of morphine and Toradol in the ED and is still unable to ambulate secondary to pain. Given this I spoke with the hospitalist for admission. Impression: 1. Intractable back pain 2. Debility Lab Data Attestation: I reviewed the patient's lab results. Labs: Laboratory Results - last 24 hr 05/15/23 11:15 WBC 8.0 RBC 4.26 Hgb 12.5 Hct 37.0 MCV 86.9 MCH 29.3 MCHC 33.8 RDW Std Deviation 41.4 RDW Coeff of Sandeep 13.2 Plt Count 259 MPV 10.1 Immature Gran % (Auto) 0.300 Neut % (Auto) 58.2 Lymph % (Auto) 24.2 Blaine % (Auto) 12.6 H Eos % (Auto) 4.1 Baso % (Auto) 0.6 Absolute Neuts (auto) 4.7 Absolute Lymphs (auto) 1.93 Nucleated RBC % 0 Sodium 137 Potassium 3.3 L Chloride 104 Carbon Dioxide 25.0 Anion Gap 8 BUN 25 H Creatinine 0.78 Estim Creat Clear Calc 82.21 Est GFR (MDRD) Af Amer 98 Est GFR (MDRD) Non-Af 81 BUN/Creatinine Ratio 31.9 H Glucose 97 Calcium 9.0 Total Bilirubin 0.50 AST 16 ALT 19 Alkaline Phosphatase 59 Total Protein 7.8 Albumin 3.7 Globulin 4.1 Albumin/Globulin Ratio 0.9 Radiography Diagnostic Testing: Clinical Impression(s) from Imaging Studies Brain CT 05/15/23 10:50 IMPRESSION: Normal unenhanced CT scan of the brain. Electronically Signed: Alvaro Mata MD at 12:47 EST Reading Location ID and State: [facility] / [place] , Service support , Cervical Spine CT 05/15/23 10:50 IMPRESSION: Multilevel degenerative changes, as described above. Electronically Signed: Alvaro Mata MD at 12:50 EST Reading Location ID and State: [facility] / [place] , Service support , Hip/Pelvis X-Ray 05/15/23 11:30 IMPRESSION: 1. Mild axial narrowing of the right hip joint with mild to moderate ring osteophyte formation at the right femoral head neck junction. There are no fractures of the hips or pelvis or sacrum or pubic rami. The left hip joint is preserved. Electronically Signed: Alvaro Mata MD at 12:39 EST Reading Location ID and State: [facility] / [place] , Service support , Lumbar Spine X-Ray 05/15/23 11:30 IMPRESSION: Degenerative changes of the spine, as detailed above. Electronically Signed: Alvaro Mata MD at 12:36 EST , Discharge Plan Triage Chief Complaint: Fall ED Provider: Agustin Silva Dx/Rx/DC Orders Prescriptions: No Action omeprazole 20 mg capsule,delayed release(DR/EC) 20 mg PO DAILY thiamine HCl (vitamin B1) 50 mg tablet 50 mg PO DAILY cyanocobalamin (vitamin B-12) [Vitamin B-12] 1,000 mcg tablet 1,000 mcg PO fluticasone furoate-vilanterol [Breo Ellipta] 200-25 mcg/dose blister with device 1 inh inhalation Myrbetriq 25 mg tablet extended release 24 hr 25 mg PO DAILY trazodone 150 mg tablet 150 mg PO DAILY olanzapine 10 mg tablet 10 mg PO DAILY oxybutynin chloride 10 mg tablet extended release 24hr 10 mg PO DAILY bupropion HCl [Wellbutrin SR] 150 mg Tablet Sustained-Release 12 Hr 150 mg PO DAILY levothyroxine 25 mcg Tablet 25 mcg PO DAILY famotidine 20 mg Tablet 20 mg PO QHS ferrous sulfate 325 mg (65 mg iron) Tablet 325 mg PO BID fluoxetine 60 mg Tablet 60 mg PO DAILY Spiriva Respimat 2.5 mcg/actuation Mist 2 puff INHALATION DAILY pregabalin [Lyrica] 150 mg capsule 150 mg PO TID atorvastatin 40 mg tablet 40 mg PO QHS cholecalciferol (vitamin D3) [Vitamin D3] 25 mcg (1,000 unit) Capsule 25 mcg PO DAILY albuterol sulfate 2.5 mg /3 mL (0.083 %) solution for nebulization 2.5 mg inhalation Q6H PRN PRN (Reason: Shortness Of Breath Or Wheezing) albuterol sulfate [Ventolin HFA] 90 mcg/actuation HFA aerosol inhaler 1 puff INHALATION Q4H PRN PRN (Reason: Shortness Of Breath Or Wheezing) baclofen 10 mg Tablet 5 mg PO BID Qty: 30 0RF hydrocodone-acetaminophen [hydrocodone-acetaminophen] 5-325 mg tablet 1 tab PO Q4H PRN PRN (Reason: Pain) 2 Days Qty: 10 0RF hydrocodone-acetaminophen [hydrocodone-acetaminophen] 5-325 mg tablet 1 tab PO Q6H PRN PRN (Reason: Pain) 3 Days Qty: 10 0RF amlodipine 10 mg tablet 10 mg PO DAILY Qty: 30 0RF levofloxacin 500 mg tablet 500 mg PO DAILY 7 Days Qty: 7 0RF ondansetron 4 mg tablet,disintegrating 4 mg PO Q8H PRN PRN (Reason: Nausea) Qty: 20 0RF Primary Care Provider: Memo Chairez Referrals: Memo Chairez MD [Primary Care Provider] -
[2023-05-15 12:59] VITALS: BP 118/91; PULSE 74; RESP 16; O2SAT 98
[2023-05-15 14:43] VITALS: BP 122/79; PULSE 85; RESP 16; O2SAT 100
[2023-05-15 15:13] VITALS: BMI 25.4
[2023-05-15 15:38] VITALS: BP 106/83; PULSE 81; RESP 16; TEMP 36.7; O2SAT 95
--- NOTE | 2023-05-15 15:48 | HP.PCM.HOS_ITS ---
HPI - General General Date of Admission: 05/15/23 Date of Service: 05/15/23 HPI Sergio JARQUIN, is a 53 F who presents the ED after a fall. Since then, she r eports back pain, right hip hip pain and neck pain. She is not able to bear weight on her legs due to the pain. While in the ED, she had a similar episode of imbalance and fall. No LOC, no head injury. Extensive imaging studies in the ED were negative. Extending her legs worsens her pain, the pain is of stretching type and is sharp radiates down her legs CT brain, cervical spine did not show any acute processes. X-ray of the lumbar spine and right hip were also normal. She has got 2 doses of morphine and Toradol in the ED. Despite this the pain is persistent and she is not able to mobilize. Her symptoms have been ongoing since last few years, Followed up with orthopedics closely regarding her lower back pain. MRI lumbar spine did not show any compressive neuropathy. It showed the prior right hemilaminectomy at L3-L4 was seen, no spondylolisthesis, L4-L5 right lateral disc protrusion and endplate osteophyte formation, no significant left foraminal narrowing, moderate to severe right foraminal narrowing with mild right L4 nerve root displacement. L5-S1 showed left lateral disc protrusion and endplate osteophyte formation no significant spinal canal stenosis. Based on the findings, no surgical intervention was recommened. For her symptoms she was referred to the pain management clinic. Previously she was on a trial of spinal stimulator for her chronic back pain but it did not help. She recently presented in the ED on 04/29/2023 with concerns of bilateral hand numbness since the removal of the nerve stimulator. There were no focal neurological findings on her examination, her weakness is suspected secondary to pain and not motor weakness. She is being admitted for further management of her pain, assistance with ambulation, and proper placement as she lives at home by herself and is had a high fall risk. [facility] Medical History Acute cholecystitis Acute hyponatremia Acute pancreatitis Alcohol abuse Alcohol withdrawal Ambulates with cane Anemia Anemia of unknown etiology Anxiety Arthritis Chronic pain COPD (chronic obstructive pulmonary disease) Depression Desire for detoxification Distal radius fracture, right Easy bruising Elevated LFTs Excessive bleeding Gastric reflux High cholesterol History of edema Hyperglycemia Hypertension Hypothyroidism Marijuana use On home oxygen therapy Pulmonary embolism Pulmonary embolism Recurrent syncope Renal insufficiency Restless legs Shortness of breath on exertion Sleep apnea Smoker Transient hypotension Walker as ambulation aid Wears glasses Home Medications bupropion HCl 150 mg tablet,12 hr sustained-release (Wellbutrin SR) 150 mg PO DAILY depression 04/30/21 [History Last Taken 05/14/23 10:00 150 mg] famotidine 20 mg tablet 20 mg PO QHS gerd 04/30/21 [History Last Taken 05/14/23 10:00 20 mg] ferrous sulfate 325 mg (65 mg iron) tablet 325 mg PO BID supplement 04/30/21 [History Last Taken 05/14/23 08:00 325 mg] fluoxetine 60 mg tablet 60 mg PO DAILY anxiety 04/30/21 [History Last Taken 04/30/21] levothyroxine 25 mcg tablet 25 mcg PO DAILY hypothyroid 04/30/21 [History Last Taken 04/30/21] tiotropium bromide 2.5 mcg/actuation mist for inhalation (Spiriva Respimat) 2 puff inhalation DAILY COPD 04/30/21 [History Last Taken 01/22/22] pregabalin 150 mg capsule (Lyrica) 150 mg PO TID pain 05/03/21 [History Last Taken Unknown] albuterol sulfate 2.5 mg/3 mL (0.083 %) solution for nebulization 2.5 mg inhalation Q6H PRN PRN Shortness Of Breath Or Wheezing 10/12/21 [History Last Taken 05/15/23 08:00 2.5 mg] albuterol sulfate 90 mcg/actuation aerosol inhaler (Ventolin HFA) 1 puff inhalation Q4H PRN PRN Shortness Of Breath Or Wheezing 10/12/21 [History Last Taken 05/14/23 10:00 1 puff] cholecalciferol (vitamin D3) 25 mcg (1,000 unit) capsule (Vitamin D3) 25 mcg PO DAILY vitamin 10/12/21 [History Last Taken 05/14/23 10:00 25 mcg] atorvastatin 40 mg tablet 40 mg PO QHS cholesterol 02/03/22 [History Last Taken 05/14/23 22:00 40 mg] omeprazole 20 mg capsule,delayed release 20 mg PO DAILY reflux 03/25/22 [History Last Taken Unknown] thiamine HCl (vitamin B1) 50 mg tablet 50 mg PO DAILY vitamin 03/25/22 [History Last Taken Unknown] baclofen 10 mg tablet 5 mg (1/2 x 10 mg) PO BID pain #30 tabs 05/06/22 [Rx Last Taken 04/30/21] cyanocobalamin (vitamin B-12) 1,000 mcg tablet (Vitamin B-12) 1,000 mcg PO DAILY supplement 07/27/22 [History Last Taken 05/14/23 08:00 1,000 mcg] fluticasone furoate 200 mcg-vilanterol 25 mcg/dose inhalation powder (Breo Ellipta) 1 inh inhalation 07/27/22 [History Last Taken Unknown] mirabegron 25 mg tablet,extended release 24 hr (Myrbetriq) 25 mg PO DAILY OVERACTIVE BLADDER 07/27/22 [History Last Taken Unknown] olanzapine 10 mg tablet 10 mg PO DAILY MOOD 10/28/22 [History Last Taken Unknown] oxybutynin chloride 10 mg tablet,extended release 24 hr 10 mg PO DAILY OVERACTIVE BLADDER 10/28/22 [History Last Taken Unknown] trazodone 150 mg tablet 150 mg PO DAILY DEPRESSION 10/28/22 [History Last Taken Unknown] hydrocodone-acetaminophen 5-325mg 5mg-325mg 1 tab PO Q4H PRN PRN Pain 2 days #10 TABLETS 11/22/22 [Rx Last Taken Unknown] amlodipine 10 mg tablet 10 mg PO DAILY #30 tabs 12/29/22 [Rx Last Taken 05/15/23 08:00 10 mg] hydrocodone-acetaminophen 5-325mg 5mg-325mg 1 tab PO Q6H PRN PRN Pain 3 days #10 TABLETS 12/29/22 [Rx Last Taken Unknown] levofloxacin 500 mg tablet 500 mg PO DAILY 7 days #7 tabs 02/21/23 [Rx Last Taken Unknown] ondansetron 4 mg disintegrating tablet 4 mg PO Q8H PRN PRN Nausea #20 tabs 02/21/23 [Rx Last Taken Unknown] Allergy/AdvReac Type Severity Reaction Status Date / Time fentanyl Allergy Anaphylaxis Verified 05/15/23 09:39 [email or web address] [From Chantix] AdvReac hallucinati Verified 05/15/23 09:39 ons Family History Other Cancer Surgical History H/O skin graft H/O: hysterectomy Hx of cholecystectomy Hx of tonsillectomy Social History household members: none Smoking Status: Current every day smoker tobacco type: cigarettes alcohol intake: former substance use type: marijuana additional social history: disabled ROS Constitutional Constitutional: Denies anorexia, change in weight, chills, fatigue, fever(s), malaise, night sweats, weakness or other Cardiovascular Cardiovascular: Denies chest pain, claudication, dyspnea on exertion, edema, lightheadedness, orthopnea, palpitations, paroxysmal nocturnal dyspnea, rapid heart rate, syncope or other Respiratory/Chest Respiratory/Chest: Denies cough, dyspnea, excessive phlegm production, hemoptysis, productive cough, shortness of breath at rest, shortness of breath with exertion, wheezing or other Gastrointestinal Gastrointestinal: Denies abdominal pain, coffee ground emesis, constipation, diarrhea, dyspepsia, hematemesis, hematochezia, loose stools, melena, nausea, vomiting or other Musculoskeletal Musculoskeletal: Denies arthralgias, back pain, joint pain, joint stiffness, joint swelling, myalgias, neck pain or other Psychiatric Psychiatric: Denies anxiety, depression, homicidal ideation, suicidal ideation or other Endocrine Endocrinology: Denies change in body appearance, cold intolerance, excessive sweating, heat intolerance, polydipsia, polyuria or other Hematologic/Lymphatic Hematologic/Lymphatic: Denies anemia, easy bleeding, easy bruising, lym phadenopathy or other Allergic/Immunologic Allergic/Immunologic: Denies rhinitis, hives, eczemia, asthma or other Vital Signs Vital Signs Vital Signs: 05/15/23 09:35 05/15/23 09:40 05/15/23 11:58 Temperature 98.1 F Temperature Source Temporal Pulse Rate 84 84 Respiratory Rate 20 H Respiratory Effort Normal Non-Labored Respiratory Depth Normal Respiratory Pattern Normal Blood Pressure 140/111 H 152/106 H Blood Pressure Mean 120 121 Blood Pressure Source Blood Pressure Position Blood Pressure Location Pulse Ox 97 98 Oxygen Delivery Method Room Air Room Air 05/15/23 12:59 05/15/23 14:43 05/15/23 15:38 Temperature 98.1 F Temperature Source Oral Pulse Rate 74 85 81 Respiratory Rate 16 16 16 Respiratory Effort Respiratory Depth Respiratory Pattern Blood Pressure 118/91 H 122/79 H 106/83 H Blood Pressure Mean 100 93 90 Blood Pressure Source Monitor Blood Pressure Position Semi-Fowlers Blood Pressure Location Left Arm Pulse Ox 98 100 95 Oxygen Delivery Method Room Air Room Air Room Air Weight Weight: 167 lb 8.821 oz Body Mass Index (BMI) 25.4 Physical Exam Const alert and oriented x3 Resp normal respiratory effort Cardio regular rate GI normal to inspection, nondistended, normoactive bowel sounds Extremity Extremity Narrative: Bilateral straight leg raising test is positive at 30 degrees. No focal loss of sensation. Results Medical Records Data Attestation: I reviewed the patient's medical records Lab / Micro Data Attestation: I reviewed the patient's lab results. 05/15/23 11:15 05/15/23 11:15 Labs: Laboratory Results - last 24 hr 05/15/23 11:15: WBC 8.0, RBC 4.26, Hgb 12.5, Hct 37.0, MCV 86.9, MCH 29.3, MCHC 33.8, RDW Std Deviation 41.4, RDW Coeff of Sandeep 13.2, Plt Count 259, MPV 10.1, Immature Gran % (Auto) 0.300, Neut % (Auto) 58.2, Lymph % (Auto) 24.2, Frederick % (Auto) 12.6 H, Eos % (Auto) 4.1, Baso % (Auto) 0.6, Absolute Neuts (auto) 4.7, Absolute Lymphs (auto) 1.93, Nucleated RBC % 0, Sodium 137, Potassium 3.3 L, Chloride 104, Carbon Dioxide 25.0, Anion Gap 8, BUN 25 H, Creatinine 0.78, Estim Creat Clear Calc 82.21, Est GFR (MDRD) Af Amer 98, Est GFR (MDRD) Non-Af 81, BUN/Creatinine Ratio 31.9 H, Glucose 97, Calcium 9.0, Total Bilirubin 0.50, AST 16, ALT 19, Alkaline Phosphatase 59, Total Protein 7.8, Albumin 3.7, Globulin 4.1, Albumin/Globulin Ratio 0.9 Imagaing Radiology Impression Brain CT 05/15/23 10:50 IMPRESSION: Normal unenhanced CT scan of the brain. Electronically Signed: Alvaro Mata MD at 12:47 EST Reading Location ID and State: [address] [place] [address] , Service support , Cervical Spine CT 05/15/23 10:50 IMPRESSION: Multilevel degenerative changes, as described above. Electronically Signed: Alvaro Mata MD at 12:50 EST Reading Location ID and State: [address] [place] [address] , Service support , Hip/Pelvis X-Ray 05/15/23 11:30 IMPRESSION: 1. Mild axial narrowing of the right hip joint with mild to moderate ring osteophyte formation at the right femoral head neck junction. There are no fractures of the hips or pelvis or sacrum or pubic rami. The left hip joint is preserved. Electronically Signed: Alvaro Mata MD at 12:39 EST Reading Location ID and State: [address] [place] [address] , Service support , Lumbar Spine X-Ray 05/15/23 11:30 IMPRESSION: Degenerative changes of the spine, as detailed above. Electronically Signed: Alvaro Mata MD at 12:36 EST Reading Location ID and State: [address] [place] [address] , Service support , Assessment & Plan Assessment/Plan (1) Lumbosacral radiculopathy at S1: PLAN: Plan 1. Chronic low back pain/lumbar spondylosis: This is secondary to degenerative spine disease, lumbar spondylosis. Prior MRI done in October did not show any significant spinal canal stenosis, no surgical intervention was indicated at that time. There has been a progressive worsening of her pain, and imbalance. We will get orthopedic consultation during the present hospitalization if any further intervention is required from their standpoint. 2. Falls/imbalance: This is likely related to her lower extremity pain, there are no features of neuropathy at this time. Following the fall, no major injury to the head or spine noted. Physical therapy Occupational Therapy are consulted and will see the patient tomorrow. 3. Chronic pain management: To tide over the acute worsening of her pain we would start oxycodone 5 mg as needed, continue home medications including the pregabalin. 4. Elevated BUN: She lives by herself, given her present situation she would not be an ideal candidate for going home, the likely reason for BUN is related to dehydration. She has received IV fluids in the ED. We will monitor the labs, rehydrate as needed. 5. Hypokalemia: Corrected with IV KCl 20 mEq over 2 hours. 6. Constipation: Given the ongoing opioid therapy, chronic back pain we will start her on MiraLAX to prevent any constipation.
[2023-05-15] MEDS: Baclofen 10 MG Tablet 5 MG PO ×2 (16:13→20:49)
[2023-05-15] MEDS: Ferrous Sulfate 325 MG Tablet PO (16:13)
[2023-05-15] MEDS: POTASSIUM CHLORIDE 20 MEQ 100 MEQ IV BOLUS (17:32)
[2023-05-15] MEDS: POTASSIUM CHLORIDE 20 MEQ 80 MEQ IV BOLUS (19:04)
[2023-05-15] MEDS: Atorvastatin Calcium 40 MG Tablet PO (20:49)
[2023-05-15] MEDS: Famotidine 20 MG Tablet PO (20:49)
[2023-05-15] MEDS: Pregabalin 75 MG Capsule 150 MG PO (20:49)
[2023-05-15 20:52] VITALS: BP 101/70; PULSE 83; RESP 16; TEMP 36.6; O2SAT 95
[2023-05-16] VITALS (9 sets, daily range): BP systolic 95–107; BP diastolic 60–79; PULSE 67–81; RESP 16–22; TEMP 36.6–37.1; O2SAT 91–97
[2023-05-16] MEDS: Morphine 2 MG/ML Syringe IV (00:26)
[2023-05-16] MEDS: 0.9% Saline Lock 10 ML Syringe IV ×3 (00:26→18:34)
[2023-05-16] MEDS: Levothyroxine 25 MCG TABLET PO (05:20)
[2023-05-16] MEDS: Pregabalin 75 MG Capsule 150 MG PO ×3 (05:20→21:01)
[2023-05-16 06:07] LABS: Absolute Lymphocyte Count 1.88 X10^3/uL (0.83-4.51); Absolute Neutrophil Count 3.3 X10^3/uL (2.0-7.7); Basophil# 0.06 X10^3/uL; Basophil% 0.9 % (0-1); Eosinophil# 0.43 X10^3/uL; Eosinophils% 6.7 % (0-5); Hematocrit 36.5 % (37-47); Lymphocyte # 1.88 X10^3/ul (0.83-4.51); Lymphocyte % 29.4 % (19-41); Mean Corp Hgb Conc 32.9 g/dL (32-36); Mean Corpuscular Hgb 28.8 pg (27.0-32.0); Mean Corpuscular Volume 87.7 fL (81-99); Mean Platelet Vol. 10.1 fl (6.2-12.0); Monocyte# 0.72 X10^3/uL; Monocyte% 11.3 % (0-10); NRBC Flagged by Analyzer 0 % (0-5); Neutrophil # 3.29 X10^3/uL (2.7-7.7); Neutrophil % 51.4 % (47-70); Platelet Count 276 K/mm3 (150-450); RBC Distribution Width CV 13.1 % (11.6-14.6); RBC Distribution Width SD 42.4 fl (35.1-43.9); Red Blood Count 4.16 M/mm3 (4.2-5.4); White Blood Count 6.4 K/mm3 (4.4-11.0)
[2023-05-16 06:18] LABS: Prothrombin Time (Protime)PT. 13.1 SECONDS (11.7-14.9)
[2023-05-16 06:35] LABS: ALB/GLOB Ratio 0.8 RATIO (0.9-2.4); AST(SGOT) 18 U/L (15-37); Alanine Aminotransfer ALT/SGPT 17 U/L (13-56); Albumin, Serum 3.1 g/dL (3.2-5.0); Alkaline Phosphatase 55 U/L (45-117); Anion Gap 4 (5-15); BUN 26 mg/dL (7-18); BUN/Creat Ratio 32.8 RATIO (10-20); Bilirubin, Direct 0.13 mg/dL (0.00-0.30); Calcium,Total 8.2 mg/dL (8.5-10.1); Chloride 104 mmol/L (98-107); Creatinine, Serum 0.79 mg/dL (0.55-1.02); EST Glomerular Filtration Rate 80 mL/min (>60); Est Glom Filt Rate - Afr Amer 97 mL/min (>60); Estimated Creatinine Clearance 81.17 ml/min; Globulin 3.7 g/dL (2.2-4.2); Glucose 107 mg/dL (74-106); Phosphorus 5.1 mg/dL (2.5-4.9); Potassium 3.4 mmol/L (3.5-5.1); Protein, Total 6.8 g/dL (6.4-8.2); Sodium Level 133 mmol/L (136-145)
[2023-05-16] MEDS: Ferrous Sulfate 325 MG Tablet PO ×2 (07:51→16:30)
--- NOTE | 2023-05-16 09:22 | PN.HOSP_ITS ---
Reason for Visit Reason for Visit: Diagnoses Radiculopathy, lumbosacral region (05/15/23) Subjective Subjective Patient reports pain in neck and arms as well as back and legs and some diffuse weakness, is very distressed in general regarding pain and current clinical status Objective Data Objective Data Vital Signs: Vital Signs Temp Pulse Resp BP Pulse Ox O2 Del Method O2 Flow Rate 98.7 F 76 18 107/79 96 Room Air 2 05/16/23 08:59 05/16/23 08:59 05/16/23 08:59 05/16/23 08:59 05/16/23 08:59 05/16/23 08:59 05/16/23 03:00 Oxygen Flow Rate (L/min) 2 Oxygen Delivery Method Room Air Weight: 76 kg Body Mass Index (BMI) 25.4 Intake & Output: Intake and Output for Last 24 Hours 05/14/23 05/15/23 05/16/23 23:59 23:59 23:59 Intake Total 1200 / 1200 Output Total 400 / 400 Balance 1200 / 1200 -400 / -400 Lab / Micro Data 05/16/23 05:45 05/16/23 05:45 Labs: Laboratory Results - last 24 hr 05/15/23 11:15: WBC 8.0, RBC 4.26, Hgb 12.5, Hct 37.0, MCV 86.9, MCH 29.3, MCHC 33.8, RDW Std Deviation 41.4, RDW Coeff of Sandeep 13.2, Plt Count 259, MPV 10.1, Immature Gran % (Auto) 0.300, Neut % (Auto) 58.2, Lymph % (Auto) 24.2, Piatt % (Auto) 12.6 H, Eos % (Auto) 4.1, Baso % (Auto) 0.6, Absolute Neuts (auto) 4.7, Absolute Lymphs (auto) 1.93, Nucleated RBC % 0, Sodium 137, Potassium 3.3 L, Chloride 104, Carbon Dioxide 25.0, Anion Gap 8, BUN 25 H, Creatinine 0.78, Estim Creat Clear Calc 82.21, Est GFR (MDRD) Af Amer 98, Est GFR (MDRD) Non-Af 81, BUN/Creatinine Ratio 31.9 H, Glucose 97, Calcium 9.0, Total Bilirubin 0.50, AST 16, ALT 19, Alkaline Phosphatase 59, Total Protein 7.8, Albumin 3.7, Globulin 4.1, Albumin/Globulin Ratio 0.9 05/16/23 05:45: WBC 6.4, RBC 4.16 L, Hgb 12.0, Hct 36.5 L, MCV 87.7, MCH 28.8, MCHC 32.9, RDW Std Deviation 42.4, RDW Coeff of Sandeep 13.1, Plt Count 276, MPV 10.1, Immature Gran % (Auto) 0.300, Neut % (Auto) 51.4, Lymph % (Auto) 29.4, Piatt % (Auto) 11.3 H, Eos % (Auto) 6.7 H, Baso % (Auto) 0.9, Absolute Neuts (auto) 3.3, Absolute Lymphs (auto) 1.88, Nucleated RBC % 0, PT 13.1, INR 1.0, Sodium 133 L, Potassium 3.4 L, Chloride 104, Carbon Dioxide 25.0, Anion Gap 4 L, BUN 26 H, Creatinine 0.79, Estim Creat Clear Calc 81.17, Est GFR (MDRD) Af Amer 97, Est GFR (MDRD) Non-Af 80, BUN/Creatinine Ratio 32.8 H, Glucose 107 H, Calcium 8.2 L, Phosphorus 5.1 H, Magnesium 2.0, Total Bilirubin 0.30, Direct Bilirubin 0.13, AST 18, ALT 17, Alkaline Phosphatase 55, Total Protein 6.8, Albumin 3.1 L, Globulin 3.7, Albumin/Globulin Ratio 0.8 L Radiography Diagnostic Testing: Radiology Impression Brain CT 05/15/23 10:50 IMPRESSION: Normal unenhanced CT scan of the brain. Electronically Signed: Alvaro Mata MD at 12:47 EST , Cervical Spine CT 05/15/23 10:50 IMPRESSION: Multilevel degenerative changes, as described above. Electronically Signed: Alvaro Mata MD at 12:50 EST , Hip/Pelvis X-Ray 05/15/23 11:30 IMPRESSION: 1. Mild axial narrowing of the right hip joint with mild to moderate ring osteophyte formation at the right femoral head neck junction. There are no fractures of the hips or pelvis or sacrum or pubic rami. The left hip joint is preserved. Electronically Signed: Alvaro Mata MD at 12:39 EST Reading Location ID and State: [facility] / [place] , Service support , Lumbar Spine X-Ray 05/15/23 11:30 IMPRESSION: Degenerative changes of the spine, as detailed above. Electronically Signed: Alvaro Mata MD at 12:36 EST Reading Location ID and State: [facility] / [place] , Service support , Physical Exam Narrative General: Alert, oriented, appears acutely upset HEENT: Atraumatic, normocephalic Eyes: Anicteric, normal conjunctiva, extraocular movements grossly intact Neck: Supple Respiratory: Somewhat diminished at the bases, normal respiratory effort Cardiovascular: Regular rate GI: Soft, nontender, nondistended Extremities: No edema Musculoskeletal: Moving all extremities, reports she has been too much pain to lay on her back, squeezes both hands but very minimally bilaterally, additionally will press legs on both hands but also does so very lightly however is able to move extremities around in bed and per report was able to feed self earlier Neuro: No overt focal neurological deficits Skin: No rashes appreciated Psych: Anxious and distressed Assessment & Plan Assessment/Plan (1) Lumbosacral radiculopathy at S1: PLAN: Plan # Chronic low back pain/lumbar spondylosis/neck pain and arm weakness -with fall at home -this is secondary to degenerative spine disease, lumbar spondylosis. Prior MRI done in October did not show any significant spinal canal stenosis, no surgical intervention was indicated at that time. There has been a progressive worsening of her pain, and imbalance -05/16: PT/OT, scheduled Tylenol, added additional as needed's, Dr. Chance with Ortho saw patient and requested urgent MRI of the cervical spine given her weakness of her upper extremities and hyperreflexia, this has been ordered #Falls/imbalance: This is likely related to her lower extremity pain, there are no features of neuropathy at this time. Following the fall, no major injury to the head or spine noted. Physical therapy Occupational Therapy are consulted and will see the patient tomorrow. -05/16: PT/OT #Chronic pain management: To tide over the acute worsening of her pain we would start oxycodone 5 mg as needed, continue home medications including the pregabalin. -05/16: Continue baclofen, Lyrica, scheduled Tylenol, as needed medication added/adjusted #Hypokalemia: Corrected with IV KCl 20 mEq over 2 hours. -05/16: Replace #Hypothyroidism -Continue Synthroid #Psychiatric disorder NOS -Continue home medications #Hypertension -On amlodipine and metoprolol #GERD -Continue PPI #COPD -Continue home inhalers #Constipation: Given the ongoing opioid therapy, chronic back pain we will start her on MiraLAX to prevent any constipation. #DVT ppx: lovenox sub q Virginia Araujo MD Time spent in the patient's overall evaluation,decision-making process, review of diagnostic data, adjustment of management, discussion with other providers, nursing nursing and ancillary staff involved in patient's care documentation,36 Minutes Charges/Coding Visit Charges Inpatient E&M: 86775 Subs Hosp L2
[2023-05-16] MEDS: Potassium Chloride Oral Tablet 20 MEQ 40 MEQ PO (09:34)
[2023-05-16] MEDS: traZODone 100 MG Tablet 150 MG PO (09:36)
[2023-05-16] MEDS: Tolterodine Tartrate 2 MG CAP.SA PO (09:38)
[2023-05-16] MEDS: Baclofen 10 MG Tablet 5 MG PO ×2 (09:38→21:02)
[2023-05-16] MEDS: amLODIPine 10 MG Tablet PO (09:39)
[2023-05-16] MEDS: Pantoprazole Sodium 20 MG Tablet PO (09:39)
[2023-05-16] MEDS: Mirabegron 25 MG TAB.ER.24H PO (09:39)
[2023-05-16] MEDS: Cholecalciferol (VIT D3) 25 MCG TABLET (1,000 UNITS) PO (09:40)
[2023-05-16] MEDS: FLUoxetine 20 MG Capsule 60 MG PO (09:40)
[2023-05-16] MEDS: OLANZapine 10 MG Tablet PO (09:41)
--- NOTE | 2023-05-16 10:06 | NURSING ---
pt lovenox, metoprolol, and wellbutrin not acknowledged/verified for adm
--- NOTE | 2023-05-16 11:13 | CON.PCM.OR_ITS ---
HPI Consult Data Date of Consult: 05/16/23 HPI Narrative HPI Narrative: KAMI JARQUIN, is a 53 F who was admitted yesterday for low back pain, neck pain, multiple falls, weakness throughout. I was requested to see the patient for consultation for her back and neck issues. On entering the room, she was crying with severe pain. She mentioned that she has both neck and low back pain. Her lower back pain radiates down the left lower extremity. Over the last 1 months she has noticed severe worsening balance such that she has felt that her legs give out on her and she has had multiple falls. She is right-hand dominant. She has left worse than right upper extremity weakness and difficulty with dexterity such that she is unable to eat by herself without dropping the food. She has difficulty pulling on the tissues from a box. She has been unable to walk to the bathroom and has been using a bedpan for urination. She has felt constipation and has not had no not had a bowel movement for a while. She mentions that she underwent spinal cord stimulator placement on April 20 but this was removed in April 25. She mentions that this was the timeline w here her weakness and pain worsened. She is unable to recollect if the trial of spinal cord stimulator helped. She has undergone a lower back surgery, which based on the available imaging was likely and decompression surgery. [facility] Medical History Acute cholecystitis Acute hyponatremia Acute pancreatitis Alcohol abuse Alcohol withdrawal Ambulates with cane Anemia Anemia of unknown etiology Anxiety Arthritis Chronic pain COPD (chronic obstructive pulmonary disease) Depression Desire for detoxification Distal radius fracture, right Easy bruising Elevated LFTs Excessive bleeding Gastric reflux High cholesterol History of edema Hyperglycemia Hypertension Hypothyroidism Marijuana use On home oxygen therapy Pulmonary embolism Pulmonary embolism Recurrent syncope Renal insufficiency Restless legs Shortness of breath on exertion Sleep apnea Smoker Transient hypotension Walker as ambulation aid Wears glasses Home Medications bupropion HCl 150 mg tablet,12 hr sustained-release (Wellbutrin SR) 300 mg PO DAILY depression 04/30/21 [History Last Taken 05/14/23 10:00 150 mg] ferrous sulfate 325 mg (65 mg iron) tablet 325 mg PO BID supplement 04/30/21 [History Last Taken 05/14/23 08:00 325 mg] levothyroxine 25 mcg tablet 25 mcg PO DAILY hypothyroid 04/30/21 [History Last Taken 04/30/21] tiotropium bromide 2.5 mcg/actuation mist for inhalation (Spiriva Respimat) 2 puff inhalation DAILY COPD 04/30/21 [History Last Taken 01/22/22] pregabalin 150 mg capsule (Lyrica) 150 mg PO TID pain 05/03/21 [History Last Taken 05/14/23 22:00 150 mg] albuterol sulfate 2.5 mg/3 mL (0.083 %) solution for nebulization 2.5 mg inhalation Q6H PRN PRN Shortness Of Breath Or Wheezing 10/12/21 [History Last Taken 05/15/23 08:00 2.5 mg] albuterol sulfate 90 mcg/actuation aerosol inhaler (Ventolin HFA) 1 puff inhalation Q4H PRN PRN Shortness Of Breath Or Wheezing 10/12/21 [History Last Taken 05/14/23 10:00 1 puff] cholecalciferol (vitamin D3) 25 mcg (1,000 unit) capsule (Vitamin D3) 25 mcg PO DAILY vitamin 10/12/21 [History Last Taken 05/14/23 10:00 25 mcg] atorvastatin 40 mg tablet 40 mg PO QHS cholesterol 02/03/22 [History Last Taken 05/14/23 22:00 40 mg] omeprazole 20 mg capsule,delayed release 20 mg PO DAILY reflux 03/25/22 [History Last Taken 05/14/23 10:00 20 mg] thiamine HCl (vitamin B1) 50 mg tablet 50 mg PO DAILY vitamin 03/25/22 [History Last Taken 05/14/23 10:00 100 mg] baclofen 10 mg tablet 5 mg (1/2 x 10 mg) PO BID pain #30 tabs 05/06/22 [Rx Last Taken 04/30/21] cyanocobalamin (vitamin B-12) 1,000 mcg tablet (Vitamin B-12) 1,000 mcg PO DAILY supplement 07/27/22 [History Last Taken 05/14/23 08:00 1,000 mcg] fluticasone furoate 200 mcg-vilanterol 25 mcg/dose inhalation powder (Breo Ellipta) 1 inh inhalation 07/27/22 [History Last Taken Unknown] mirabegron 25 mg tablet,extended release 24 hr (Myrbetriq) 25 mg PO DAILY OVERA CTIVE BLADDER 07/27/22 [History Last Taken 05/14/23 08:00 25 mg] olanzapine 10 mg tablet 10 mg PO DAILY MOOD 10/28/22 [History Last Taken 05/14/23 08:00 10 mg] oxybutynin chloride 10 mg tablet,extended release 24 hr 10 mg PO DAILY OVERACTIVE BLADDER 10/28/22 [History Last Taken 05/14/23 08:00 10 mg] trazodone 150 mg tablet 150 mg PO DAILY DEPRESSION 10/28/22 [History Last Taken 05/14/23 22:00 150 mg] amlodipine 10 mg tablet 10 mg PO DAILY #30 tabs 12/29/22 [Rx Last Taken 05/15/23 08:00 10 mg] ondansetron 4 mg disintegrating tablet 4 mg PO Q8H PRN PRN Nausea #20 tabs 02/21/23 [Rx Last Taken Unknown] metoprolol succinate 50 mg tablet,extended release 24 hr 50 mg PO DAILY 05/15/23 [History Last Taken 05/14/23 10:00 50 mg] Allergy/AdvReac Type Severity Reaction Status Date / Time fentanyl Allergy Anaphylaxis Verified 05/15/23 09:39 varenicline [From Chantix] AdvReac hallucinati Verified 05/15/23 09:39 ons Family History Other Cancer Surgical History H/O skin graft H/O: hysterectomy Hx of cholecystectomy Hx of tonsillectomy Social History household members: none Smoking Status: Current every day smoker tobacco type: cigarettes alcohol intake: former substance use type: marijuana additional social history: disabled Vital Signs Vital Signs Vital Signs: 05/15/23 11:58 05/15/23 12:59 05/15/23 14:43 Temperature Temperature Source Pulse Rate 84 74 85 Pulse Strength Respiratory Rate 16 16 Respiratory Effort Respiratory Depth Respiratory Pattern Blood Pressure 152/106 H 118/91 H 122/79 H Blood Pressure Mean 121 100 93 Blood Pressure Source Blood Pressure Position Blood Pressure Location Pulse Ox 98 98 100 Oxygen Delivery Method Room Air Room Air Room Air Oxygen Flow Rate (L/min) 05/15/23 15:38 11/26/23 15:50 05/15/23 20:10 Temperature 98.1 F Temperature Source Oral Pulse Rate 81 Pulse Strength Respiratory Rate 16 Respiratory Effort Normal Non-Labored Normal Non-Labored Respiratory Depth Normal Respiratory Pattern Normal Blood Pressure 106/83 H Blood Pressure Mean 90 Blood Pressure Source Monitor Blood Pressure Position Semi-Fowlers Blood Pressure Location Left Arm Pulse Ox 95 Oxygen Delivery Method Room Air Room Air Oxygen Flow Rate (L/min) 05/15/23 20:52 05/15/23 21:02 05/16/23 00:21 Temperature 98 F 98 F Temperature Source Temporal Temporal Pulse Rate 83 81 Pulse Strength Normal (2+) Respiratory Rate 16 16 Respiratory Effort Respiratory Depth Respiratory Pattern Blood Pressure 101/70 99/68 Blood Pressure Mean 80 78 Blood Pressure Source Monitor Monitor Blood Pressure Position Semi-Fowlers Semi-Fowlers Blood Pressure Location Left Arm Left Arm Pulse Ox 95 97 Oxygen Delivery Method Room Air Room Air Oxygen Flow Rate (L/min) 05/16/23 03:00 05/16/23 05:18 05/16/23 08:54 Temperature 98 F Temperature Source Temporal Pulse Rate 76 Pulse Strength Respiratory Rate 16 18 Respiratory Effort Normal Non-Labored Normal Respiratory Depth Normal Respiratory Pattern Normal Blood Pressure 95/60 Blood Pressure Mean 71 Blood Pressure Source Monitor Blood Pressure Position Left Lateral Blood Pressure Location Left Arm Pulse Ox 96 96 Oxygen Delivery Method Nasal Cannula Room Air Room Air Oxygen Flow Rate (L/min) 2 05/16/23 08:59 Temperature 98.7 F Temperature Source Temporal Pulse Rate 76 Pulse Strength Respiratory Rate 18 Respiratory Effort Respiratory Depth Respiratory Pattern Blood Pressure 107/79 Blood Pressure Mean 88 Blood Pressure Source Monitor Blood Pressure Position Semi-Fowlers Blood Pressure Location Left Arm Pulse Ox 96 Oxygen Delivery Method Room Air Oxygen Flow Rate (L/min) Weight Weight: 167 lb 8.821 oz Body Mass Index (BMI) 25.4 Physical Exam Narrative Examination of the neck and back shows midline and paraspinal tenderness. Prior midline scar in lower lumbar spine noticed which is about 1 inch vertical. Neurologic evaluation of upper and lower extremities shows 4 - power in all muscle groups. Terrance's is positive bilaterally. Knee reflexes are brisk. There is no clonus. Lab / Micro Data 05/16/23 05:45 05/16/23 05:45 Labs: Laboratory Results - last 24 hr 05/15/23 11:15: WBC 8.0, RBC 4.26, Hgb 12.5, Hct 37.0, MCV 86.9, MCH 29.3, MCHC 33.8, RDW Std Deviation 41.4, RDW Coeff of Sandeep 13.2, Plt Count 259, MPV 10.1, Immature Gran % (Auto) 0.300, Neut % (Auto) 58.2, Lymph % (Auto) 24.2, Dillon % (Auto) 12.6 H, Eos % (Auto) 4.1, Baso % (Auto) 0.6, Absolute Neuts (auto) 4.7, Absolute Lymphs (auto) 1.93, Nucleated RBC % 0, Sodium 137, Potassium 3.3 L, Chloride 104, Carbon Dioxide 25.0, Anion Gap 8, BUN 25 H, Creatinine 0.78, Estim Creat Clear Calc 82.21, Est GFR (MDRD) Af Amer 98, Est GFR (MDRD) Non-Af 81, BUN/Creatinine Ratio 31.9 H, Glucose 97, Calcium 9.0, Total Bilirubin 0.50, AST 16, ALT 19, Alkaline Phosphatase 59, Total Protein 7.8, Albumin 3.7, Globulin 4.1, Albumin/Globulin Ratio 0.9 05/16/23 05:45: WBC 6.4, RBC 4.16 L, Hgb 12.0, Hct 36.5 L, MCV 87.7, MCH 28.8, MCHC 32.9, RDW Std Deviation 42.4, RDW Coeff of Sandeep 13.1, Plt Count 276, MPV 10.1, Immature Gran % (Auto) 0.300, Neut % (Auto) 51.4, Lymph % (Auto) 29.4, Dillon % (Auto) 11.3 H, Eos % (Auto) 6.7 H, Baso % (Auto) 0.9, Absolute Neuts (auto) 3.3, Absolute Lymphs (auto) 1.88, Nucleated RBC % 0, PT 13.1, INR 1.0, Sodium 133 L, Potassium 3.4 L, Chloride 104, Carbon Dioxide 25.0, Anion Gap 4 L, BUN 26 H, Creatinine 0.79, Estim Creat Clear Calc 81.17, Est GFR (MDRD) Af Amer 97, Est GFR (MDRD) Non-Af 80, BUN/Creatinine Ratio 32.8 H, Glucose 107 H, Calcium 8.2 L, Phosphorus 5.1 H, Magnesium 2.0, Total Bilirubin 0.30, Direct Bilirubin 0.13, AST 18, ALT 17, Alkaline Phosphatase 55, Total Protein 6.8, Albumin 3.1 L, Globulin 3.7, Albumin/Globulin Ratio 0.8 L Imagaing Radiology Impression Brain CT 05/15/23 10:50 IMPRESSION: Normal unenhanced CT scan of the brain. Electronically Signed: Alvaro Mata MD at 12:47 EST Reading Location ID and State: [facility] / [place] , Service support , Cervical Spine CT 05/15/23 10:50 IMPRESSION: Multilevel degenerative changes, as described above. Electronically Signed: Alvaro Mata MD at 12:50 EST Reading Location ID and State: [address] [place] [address] , Service support , Hip/Pelvis X-Ray 05/15/23 11:30 IMPRESSION: 1. Mild axial narrowing of the right hip joint with mild to moderate ring osteophyte formation at the right femoral head neck junction. There are no fractures of the hips or pelvis or sacrum or pubic rami. The left hip joint is preserved. Electronically Signed: Alvaro Mata MD at 12:39 EST Reading Location ID and State: [facility] / [place] , Service support , Lumbar Spine X-Ray 05/15/23 11:30 IMPRESSION: Degenerative changes of the spine, as detailed above. Electronically Signed: Alvaro Mata MD at 12:36 EST Reading Location ID and State: [facility] / [place] , Service support , Assessment & Plan Assessment/Plan (1) Other intervertebral disc degeneration, lumbar region: (2) Cervical myelopathy: PLAN: Plan Based on her clinical symptoms of worsening dexterity and balance issues, and along with hyperreflexia with positive Terrance's and brisk knee reflexes, I suspect cervical origin of myelopathy. I would recommend an urgent MRI cervical spine to rule this out. I reviewed patient's CT cervical spine done recently, MRI lumbar spine done in October 2022. CT cervical spine shows facet arthrosis most severe at C3-5. MRI lumbar spine shows L1-S1 disc degeneration with mild foraminal stenosis without any central stenosis. No thoracic imaging available. I would like to see the patient after MRI cervical spine is completed, hopefully while inpatient. Patient was in agreement. Charges/Coding Visit Charges Inpatient E&M: 08289 Init Hosp L3
--- NOTE | 2023-05-16 11:22 | MRI_ITS ---
INDICATION: Weakness and hyperreflexia EXAMINATION: MRI - MR Spine Cervical W/O Contrast TECHNIQUE: Multiplanar and multisequence MR images of the cervical spine were performed. IV Contrast Dosage and Agent: None. COMPARISON: CT cervical spine 05/15/2023 FINDINGS: VERTEBRAE: No acute fracture or pathologic marrow replacement. VERTEBRAL ALIGNMENT: Normal, including the craniocervical junction and cervicothoracic junction. 2 mm spondylolisthesis C4-5. There is preservation of the normal cervical lordosis. CERVICAL SPINAL CORD: Increased T2 signal at the levels of C3 and C4. C2/C3: Spondylitic bar formation with mild bilateral foraminal stenosis. C3/C4: Spondylitic bar formation with severe central and bilateral foraminal stenosis. C4/C5: Spondylitic bar formation with severe central and bilateral foraminal stenosis. C5/C6: Spondylitic bar formation with mild central and moderate bilateral foraminal stenosis. C6/C7: Spondylitic bar formation with mild central and moderate bilateral foraminal stenosis. C7/T1: Normal disc height and morphology. Normal spinal canal and neuroforamina. NECK SOFT TISSUES: No prevertebral soft tissue swelling. There is no cervical adenopathy. MRI/Spine Cervical (Routine) IMPRESSION: Cervical spondylosis and degenerative disc disease with severe central and bilateral foraminal stenoses at C3-4 and C4-5. Myelopathic cord signal at these 2 levels. Electronically Signed: Swapnil Cronin MD at 16:43 EST ,
--- NOTE | 2023-05-16 11:50 | NURSING ---
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
[2023-05-16] MEDS: Enoxaparin 40 MG/0.4 ML Syringe SC (13:00)
[2023-05-16] MEDS: Metoprolol(XL)Succ 25 MG Tablet PO (13:00)
[2023-05-16] MEDS: buPROPion (SR) 150 MG Tablet.SA PO (13:01)
[2023-05-16] MEDS: oxyCODONE 5 MG Tablet PO (13:02)
[2023-05-16] MEDS: Ondansetron ODT 4 MG Tablet PO (13:02)
[2023-05-16] MEDS: LORazepam 0.5 MG Tablet PO (13:03)
[2023-05-16] MEDS: Acetaminophen 500 MG Tablet 1000 MG PO ×2 (13:03→21:01)
[2023-05-16] MEDS: Ketorolac 15 MG/ML Vial IV (13:04)
[2023-05-16] MEDS: Albuterol 2.5 MG/3 ML VIAL.NEB. INHALATION ×2 (13:32→19:20)
--- NOTE | 2023-05-16 14:14 | NURSING ---
off unit to MRI
--- NOTE | 2023-05-16 15:33 | CHAPLAIN ---
Type of Pastoral Visit _x__ Initial Visit ___ Follow-up Visit ___ On-call Visit ___ General Patient Visit ___ Spiritual Assessment ___ Family Conference ___ Bereavement ___ Rapid Response ___ Code Blue ___ Other (describe below) Pastoral Care Referral From _x__ Patient ___ Family ___ Nurse ___ Physician ___ Firmware Test Engineer ___ International Account Manager ___ Other (describe below) Sacrament/Intervention ___ Active listening ___ Anointing ___ Methodist ___ Bereavement ___ Communion ___ Celestina exploration ___ ___ Life review _x__ Prayer ___ Reconciliation ___ Sacrament of Sick _x__ Supportive presence ___ Wedding ___ Other (describe below) Pastoral Comments patient looks to be in discomfort and pain lying in the bed; pt reports having very little relief or comfort; pt states that she has no family in the area; pt asks for prayer to give me some calm and relief; pt reports that prayer is important and she is very appreciative of it;
--- NOTE | 2023-05-16 17:00 | CASEMGMT ---
Social Work - SDOH & Initial assessment. Face to Face with patient for initial transition planning/care coordination assessment.? 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 Patient lying in bed, alert and oriented. Patient willing to participate in assessment and is able to answer all questions appropriately.? Patient talkative during social work visit, expressed much frustration with ongoing pain, and difficulty finding appropraite management. Patient talkative about SDOH issues. Emotional support and supportive listening and reflection offered to patient this date. SDOH assessment completed and is attached to this note. Patient triggered for food, utilities, and transportation; though patient is connected with many resources for these needs already. Admitting Diagnosis: Chronic lower back pain, lumbar spondylosis; falls/imbalance Other diagnosis history: COPD; Patient reports recently had a spinal cord stimulator placed the beginning of April, but was removed soon after. PCP: Dr. Chairez Specialists: Dr. Arce for Pain Management (has seen Dr. Bermeo in the past); Dr. Beard and Renata Chiu at [facility]. Preferred Pharmacy: [facility] - delivers monthly in bubble packs for easy reminders to take medications. Insurance: [employer] Prescription Benefit:? Yes - Medicaid Financial - SSI disability (914 a month) - on disability for combination of medical and mental health related issues. Living Will/HPOA: Denies having this in place. Has no biological children. Does have 2 sisters who live in [place] Katalina Gregg([phone]) and Nasrin Swan ([phone]) LNOK: 2 sisters who are out of state. Denies having any other family. Living Arrangements: [facility]. One floor; elevator access in the complex. Transportation: Relies on [employer] for transportation. DME/HHC: Patient reports to have a walker, rollator, cane at home. Reports there is much clutter in the home, it is hard to use the walker. Prior CM Assessment also indicates patient has access to grab bars in the bathroom, emergency pull cord, shower chair; History of Home O2 through [facility]. History of [facility]. Community Resources: Active with [facility] for psychiatry and counseling. States in the last couple of years lost manager of case due to the CM leaving the agency, and the service was never replaced; uses [employer] and [employer] for food assistance; [employer]; [employer] for heating assistance. Reports has tried the [facility] but they turned me down because on day of assessment I was having a good day. Behavioral Health History:? Patient reports to have depression, anxiety, PTSD, and Bipolar Disorder. Reports Dr. Beard diagnosed patient with Bipolar. Denies any personality disorder diagnosis. Reports history of alcohol use disorder, has been through [facility] before. States sober date is 11.22.22 with one lapse since November where patient took one sip and threw the drink out. Patient reports history fo HI and SI about 10-11 years ago, right after moving to [place]. Reports was hospitalized for both. Reports the person patient felt HI towards is and has never had any other violent thoughts towards others. Denies any history of actual suicide attempts, denies any planning for suicide or access to lethal means. Does reports sometimes feels down and apathetic, where questions livings, but denies actual desire or intent to harm self. Patient reports could never actually harm self, nor any history of attempts. Reports to see Renata Turner for counseling every other Tuesday. Identifes Renata as a good support. Patient goals: Patient expresses interest in having case management services again, and reports just does not know how to go about getting services. Patient also interested in having home care services, but reports has been told by [facility] that does not qualify. Patient reports to want to feel better and have pain more manageable. Disposition Plan: Social work following. Will plan to reach out to [facility] for a case management referral. Plan to call [facility] about a mental health manager of case. Providing resources for [facility] and [facility] [employer] service. -LIZY Kam
[2023-05-16] MEDS: dexAMETHasone 10 MG/ML Vial IV (18:34)
[2023-05-16] MEDS: Budesonide Respules 0.5 MG/2 ML AMPUL.NEB. INHALATION (19:20)
[2023-05-16] MEDS: Atorvastatin Calcium 40 MG Tablet PO (21:01)
[2023-05-16] MEDS: Famotidine 20 MG Tablet PO (21:02)
[2023-05-16] MEDS: dexAMETHasone 4 MG/ML Vial IV (23:19)
[2023-05-17] VITALS (8 sets, daily range): BP systolic 118–133; BP diastolic 76–84; PULSE 70–90; RESP 15–20; TEMP 36.6–36.9; O2SAT 93–95
[2023-05-17] MEDS: Acetaminophen 500 MG Tablet 1000 MG PO ×3 (05:25→22:28)
[2023-05-17] MEDS: Levothyroxine 25 MCG TABLET PO (05:25)
[2023-05-17] MEDS: Pregabalin 75 MG Capsule 150 MG PO ×3 (05:25→22:30)
[2023-05-17] MEDS: dexAMETHasone 4 MG/ML Vial IV ×3 (05:26→17:17)
[2023-05-17] MEDS: Budesonide Respules 0.5 MG/2 ML AMPUL.NEB. INHALATION ×2 (07:16→19:06)
[2023-05-17] MEDS: Ipratropium 0.5 MG/2.5 ML SOLUTION INHALATION (07:16)
[2023-05-17 07:41] LABS: Absolute Lymphocyte Count 0.62 X10^3/uL (0.83-4.51); Absolute Neutrophil Count 14.8 X10^3/uL (2.0-7.7); Basophil# 0.02 X10^3/uL; Basophil% 0.1 % (0-1); Hematocrit 41.3 % (37-47); Hemoglobin 13.2 g/dL (12.0-15.0); Lymphocyte # 0.62 X10^3/ul (0.83-4.51); Lymphocyte % 3.9 % (19-41); Mean Corpuscular Volume 90.8 fL (81-99); Mean Platelet Vol. 10.6 fl (6.2-12.0); Monocyte# 0.32 X10^3/uL; NRBC Flagged by Analyzer 0 % (0-5); Neutrophil # 14.77 X10^3/uL (2.7-7.7); Neutrophil % 93.5 % (47-70); Platelet Count 284 K/mm3 (150-450); Red Blood Count 4.55 M/mm3 (4.2-5.4); White Blood Count 15.8 K/mm3 (4.4-11.0)
--- NOTE | 2023-05-17 08:03 | PCM.PN.HOSP ---
Reason for Visit Reason for Visit: Diagnoses Disease of spinal cord, unspecified (05/15/23) Other intervertebral disc degeneration, lumbar region (05/15/23) Radiculopathy, lumbosacral region (05/15/23) Subjective Subjective Patient still reports pain in her legs and weakness and numbness in her hands but does appear more comfortable after adjusting pain medication and starting steroids Objective Data Objective Data Vital Signs: Vital Signs Temp Pulse Resp BP Pulse Ox O2 Del Method O2 Flow Rate 98.3 F 88 17 118/79 93 Room Air 2 05/17/23 02:50 05/17/23 07:16 05/17/23 07:16 05/17/23 02:50 05/17/23 07:16 05/17/23 07:16 05/16/23 03:00 Oxygen Flow Rate (L/min) 2 Oxygen Delivery Method Room Air Weight: 76 kg Body Mass Index (BMI) 25.4 Intake & Output: Intake and Output for Last 24 Hours 05/15/23 05/16/23 05/17/23 23:59 23:59 23:59 Intake Total 1200 / 1200 600 / 600 Output Total 400 / 400 0 / 0 Balance 1200 / 1200 200 / 200 0 / 0 Lab / Micro Data 05/17/23 07:15 05/16/23 05:45 Labs: Laboratory Results - last 24 hr 05/17/23 07:15: WBC 15.8 H, RBC 4.55, Hgb 13.2, Hct 41.3, MCV 90.8, MCH 29.0, MCHC 32.0, RDW Std Deviation 43.0, RDW Coeff of Sandeep 13.0, Plt Count 284, MPV 10.6, Immature Gran % (Auto) 0.500, Neut % (Auto) 93.5 H, Lymph % (Auto) 3.9 L, [place] % (Auto) 2.0, Eos % (Auto) 0.0, Baso % (Auto) 0.1, Absolute Neuts (auto) 14.8 H, Absolute Lymphs (auto) 0.62 L, Nucleated RBC % 0 Radiography Diagnostic Testing: Radiology Impression Cervical Spine MRI 05/16/23 11:22 IMPRESSION: Cervical spondylosis and degenerative disc disease with severe central and bilateral foraminal stenoses at C3-4 and C4-5. Myelopathic cord signal at these 2 levels. 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 Prior MRI done in October did not show any significant spinal canal stenosis, no surgical intervention was indicated at that time. There has been a progressive worsening of her pain, and imbalance -05/16: PT/OT, scheduled Tylenol, added additional as needed's, Dr. Chance with Ortho saw patient and requested urgent MRI of the cervical spine given her weakness of her upper extremities and hyperreflexia, this has been ordered -05/17: MRI cervical spine showed cervical spondylosis and degenerative disc disease with severe central and bilateral foraminal stenosis at C3-5 with myelopathic cord signal at those 2 levels. Discussed yesterday evening with Ortho neuro and it was recommended patient be placed in cervical collar and started on steroids. Patient much more comfortable objectively after adjusting pain medications and starting steroids but still continues to have weakness and numbness/neuro symptoms. Patient may need surgery based on discussion with Ortho, continue present management and will await follow-up eval #Falls/imbalance: This is likely related to her lower extremity pain, there are no features of neuropathy at this time. Following the fall, no major injury to the head or spine noted. Physical therapy Occupational Therapy are consulted and will see the patient tomorrow. -05/16: PT/OT #Chronic pain management: To tide over the acute worsening of her pain we would start oxycodone 5 mg as needed, continue home medications including the pregabalin. -05/16: Continue baclofen, Lyrica, scheduled Tylenol, as needed medication added/adjusted -05/17: Patient still reports significant pain however does appear more comfortable with steroids and pain medication adjustments #Hypokalemia: Corrected with IV KCl 20 mEq over 2 hours. -05/16: Replace #Hypothyroidism -Continue Synthroid #Psychiatric disorder NOS -Continue home medications #Hypertension -On amlodipine and metoprolol #GERD -Continue PPI #COPD -Continue home inhalers #Constipation: Given the ongoing opioid therapy, chronic back pain we will start her on MiraLAX to prevent any constipation. #DVT ppx: lovenox sub q Virginia Araujo MD Time spent in the patient's overall evaluation,decision-making process, review of diagnostic data, adjustment of management, discussion with other providers, nursing nursing and ancillary staff involved in patient's care documentation,36 Minutes Charges/Coding Visit Charges Inpatient E&M: 50547 Subs Hosp L2
[2023-05-17] MEDS: Ferrous Sulfate 325 MG Tablet PO ×2 (08:11→17:17)
[2023-05-17] MEDS: 0.9% Saline Lock 10 ML Syringe IV ×3 (08:12→17:17)
[2023-05-17] MEDS: Ketorolac 15 MG/ML Vial IV (08:12)
[2023-05-17 08:13] LABS: Anion Gap 1 (5-15); BUN 28 mg/dL (7-18); BUN/Creat Ratio 32.8 RATIO (10-20); Chloride 110 mmol/L (98-107); Creatinine, Serum 0.85 mg/dL (0.55-1.02); EST Glomerular Filtration Rate 73 mL/min (>60); Est Glom Filt Rate - Afr Amer 89 mL/min (>60); Estimated Creatinine Clearance 75.44 ml/min; Glucose 171 mg/dL (74-106); Potassium 5.2 mmol/L (3.5-5.1); Sodium Level 135 mmol/L (136-145)
--- NOTE | 2023-05-17 08:56 | CASEMGMT ---
Social Work SW called [facility] to get pt signed up with case management. Message left for someone from [facility] to call ALEKSANDER back. SHAN Ro
[2023-05-17] MEDS: Tolterodine Tartrate 2 MG CAP.SA PO (10:22)
[2023-05-17] MEDS: buPROPion (SR) 150 MG Tablet.SA PO (10:22)
[2023-05-17] MEDS: Cholecalciferol (VIT D3) 25 MCG TABLET (1,000 UNITS) PO (10:22)
[2023-05-17] MEDS: Enoxaparin 40 MG/0.4 ML Syringe SC (10:22)
[2023-05-17] MEDS: oxyCODONE 5 MG Tablet PO (10:23)
[2023-05-17] MEDS: OLANZapine 10 MG Tablet PO (10:23)
[2023-05-17] MEDS: Baclofen 10 MG Tablet 5 MG PO ×2 (10:23→22:29)
[2023-05-17] MEDS: Mirabegron 25 MG TAB.ER.24H PO (10:23)
[2023-05-17] MEDS: amLODIPine 10 MG Tablet PO (10:23)
[2023-05-17] MEDS: Docusate Sodium 100 MG Capsule 200 MG PO ×2 (10:23→22:29)
[2023-05-17] MEDS: FLUoxetine 20 MG Capsule 60 MG PO (10:23)
[2023-05-17] MEDS: Pantoprazole Sodium 20 MG Tablet PO (10:23)
[2023-05-17] MEDS: Metoprolol(XL)Succ 25 MG Tablet PO (10:23)
--- NOTE | 2023-05-17 11:46 | CASEMGMT ---
Discharge Planning A list of?SNF providers including quality and resource use data and consistent with the patient's preferred geographic region, medical needs, and insurance network was created in [employer] Guide.? This list was provided to the SW. Shruthi Saunders Discharge Planning Asst.
[2023-05-17] MEDS: Ipratropium/Albuterol Sulfate 3 ML AMPUL.NEB INHALATION ×2 (12:48→19:06)
[2023-05-17] MEDS: 0.9% Normal Saline (1000mL) 1,000 ML 75 ML IV (13:32)
--- NOTE | 2023-05-17 13:32 | PN.ORTHO_ITS ---
Subjective Subjective Seen today on the floor. She is a little comfortable with the steroids and collar compared to yesterday. Continues to have difficulty with hand weakness and difficulty walking. She has not ambulated while in house. She is on video call with her sister and wants to discuss details of surgery. To review, Over the last 1 months she has noticed severe worsening balance such that she has felt that her legs give out on her and she has had multiple falls. She is right-hand dominant. She has left worse than right upper extremity weakness and difficulty with dexterity such that she is unable to eat by herself without dropping the food. She has difficulty pulling on the tissues from a box. She has been unable to walk to the bathroom and has been using a bedpan for urination. She has felt constipation and has not had no not had a bowel movement for a while. She mentions that she underwent spinal cord stimulator placement on April 20 but this was removed in April 25. She mentions that this was the timeline where her weakness and pain worsened. She is unable to recollect if the trial of spinal cord stimulator helped. She has undergone a lower back surgery, which based on the available imaging was likely and decompression surgery. Objective Data Objective Data Vital Signs: Vital Signs Temp Pulse Resp BP Pulse Ox O2 Del Method O2 Flow Rate 98.1 F 90 18 133/79 H 95 Room Air 2 05/17/23 08:25 05/17/23 12:48 05/17/23 12:48 05/17/23 08:25 05/17/23 08:25 05/17/23 08:26 05/16/23 03:00 Oxygen Flow Rate (L/min) 2 Oxygen Delivery Method Room Air Weight: 167 lb 8.821 oz Body Mass Index (BMI) 25.4 Intake & Output: Intake and Output for Last 24 Hours 05/15/23 05/16/23 05/17/23 23:59 23:59 23:59 Intake Total 1200 / 1200 600 / 600 Output Total 400 / 400 700 / 700 Balance 1200 / 1200 200 / 200 -700 / -700 Lab / Micro Data 05/17/23 07:15 05/17/23 07:15 Labs: Laboratory Results - last 24 hr 05/17/23 07:15: WBC 15.8 H, RBC 4.55, Hgb 13.2, Hct 41.3, MCV 90.8, MCH 29.0, M CHC 32.0, RDW Std Deviation 43.0, RDW Coeff of Sandeep 13.0, Plt Count 284, MPV 10.6, Immature Gran % (Auto) 0.500, Neut % (Auto) 93.5 H, Lymph % (Auto) 3.9 L, [place] % (Auto) 2.0, Eos % (Auto) 0.0, Baso % (Auto) 0.1, Absolute Neuts (auto) 14.8 H, Absolute Lymphs (auto) 0.62 L, Nucleated RBC % 0, Sodium 135 L, Potassium 5.2 H, Chloride 110 H, Carbon Dioxide 24.0, Anion Gap 1 L, BUN 28 H, Creatinine 0.85, Estim Creat Clear Calc 75.44, Est GFR (MDRD) Af Amer 89, Est GFR (MDRD) Non-Af 73, BUN/Creatinine Ratio 32.8 H, Glucose 171 H, Calcium 9.0 Radiography Diagnostic Testing: Radiology Impression Cervical Spine MRI 05/16/23 11:22 IMPRESSION: Cervical spondylosis and degenerative disc disease with severe central and bilateral foraminal stenoses at C3-4 and C4-5. Myelopathic cord signal at these 2 levels. Electronically Signed: Swapnil Cronin MD at 16:43 EST Reading Location ID and State: [facility] / [place] Tel , Service support , Physical Exam Narrative Examination of the neck and back shows midline and paraspinal tenderness. Prior midline scar in lower lumbar spine noticed which is about 1 inch vertical. Neurologic evaluation of upper and lower extremities shows 4 - power in all muscle groups. Terrance's is positive bilaterally. Knee reflexes are brisk. There is no clonus. Assessment & Plan Assessment/Plan (1) Cervical myelopathy: PLAN: Plan I reviewed her MRI cervical spine done last night. This shows severe C3-5 stenosis with cord compression and cord signal changes. I explained to her the findings in detail. Explained to her that she is developing progressive worsening cervical myelopathy with worsening dexterity and balance issues. She is currently unable to manager tax things with her hands bilaterally and has difficulty eating. She has not been able to ambulate at least since admission. I recommended urgent surgical decompression in order to halt progression of myelopathy. I explained to her that the surgery will help stop the worsening of her hand weakness and inability to ambulate issues, it may improve by some degree, but may not become completely normal. I recommend C3-5 ACDF. All risk benefits and alternatives were discussed in detail. The risks include but are not limited to infection, bleeding, injury to nerves and vessels, vertebral artery injury, spinal cord injury, paralysis, vocal cord paralysis, injury to esophagus, pseudoarthrosis, need for further procedures, adjacent segment degeneration. Patient understands and agrees to the procedure. Surgery will be scheduled tomorrow afternoon. Patient should be n.p.o. after midnight. Medical clearance for urgent surgery recommended. Charges/Coding Visit Charges Inpatient E&M: 04964 Subs Hosp L3
--- NOTE | 2023-05-17 15:17 | PCM.HOSP.N ---
Hospitalist Note Pt to go to OR tomorrow, it was requested the patient be medically cleared for urgent surgery. NSQIP risk calculator shows patient with a 12.3% risk of any complication with the average being 8.4 and her risk of serious complication 10.3% with average risk of 7.0% indicating patient is considered above average in regards to risk. She is presently medically optimized in regards to her chronic conditions, will continue present management perioperatively.
[2023-05-17] MEDS: Famotidine 20 MG Tablet PO (22:27)
[2023-05-17] MEDS: traZODone 100 MG Tablet 150 MG PO (22:28)
[2023-05-17] MEDS: Atorvastatin Calcium 40 MG Tablet PO (22:29)
[2023-05-18] VITALS (13 sets, daily range): BP systolic 123–178; BP diastolic 74–99; PULSE 67–92; RESP 16–18; TEMP 36.3–37.1; O2SAT 93–99; BMI 25.4
[2023-05-18] MEDS: 0.9% Saline Lock 10 ML Syringe IV ×4 (00:28→18:33)
[2023-05-18] MEDS: dexAMETHasone 4 MG/ML Vial IV ×4 (00:29→18:33)
[2023-05-18] MEDS: Levothyroxine 25 MCG TABLET PO (06:17)
[2023-05-18] MEDS: Pregabalin 75 MG Capsule 150 MG PO ×2 (06:17→21:53)
[2023-05-18] MEDS: Acetaminophen 500 MG Tablet 1000 MG PO ×2 (06:18→21:54)
[2023-05-18] MEDS: Budesonide Respules 0.5 MG/2 ML AMPUL.NEB. INHALATION ×2 (07:07→19:48)
[2023-05-18] MEDS: Ipratropium/Albuterol Sulfate 3 ML AMPUL.NEB INHALATION ×2 (07:07→19:48)
[2023-05-18 08:11] LABS: Absolute Lymphocyte Count 0.91 X10^3/uL (0.83-4.51); Absolute Neutrophil Count 11.3 X10^3/uL (2.0-7.7); Basophil# 0.02 X10^3/uL; Basophil% 0.2 % (0-1); Hematocrit 36.8 % (37-47); Lymphocyte # 0.91 X10^3/ul (0.83-4.51); Lymphocyte % 7.1 % (19-41); Mean Corp Hgb Conc 32.6 g/dL (32-36); Mean Corpuscular Hgb 28.9 pg (27.0-32.0); Mean Corpuscular Volume 88.7 fL (81-99); Mean Platelet Vol. 10.5 fl (6.2-12.0); Monocyte% 3.9 % (0-10); NRBC Flagged by Analyzer 0 % (0-5); Neutrophil # 11.34 X10^3/uL (2.7-7.7); Neutrophil % 88.2 % (47-70); Platelet Count 301 K/mm3 (150-450); RBC Distribution Width CV 13.4 % (11.6-14.6); RBC Distribution Width SD 43.6 fl (35.1-43.9); Red Blood Count 4.15 M/mm3 (4.2-5.4); White Blood Count 12.9 K/mm3 (4.4-11.0)
[2023-05-18] MEDS: amLODIPine 10 MG Tablet PO (08:40)
[2023-05-18] MEDS: Metoprolol(XL)Succ 25 MG Tablet PO (08:40)
[2023-05-18] MEDS: oxyCODONE 5 MG Tablet PO ×2 (08:40→22:06)
[2023-05-18] MEDS: Tolterodine Tartrate 2 MG CAP.SA PO (08:41)
[2023-05-18] MEDS: FLUoxetine 20 MG Capsule 60 MG PO (08:41)
[2023-05-18] MEDS: Mirabegron 25 MG TAB.ER.24H PO (08:41)
[2023-05-18] MEDS: Baclofen 10 MG Tablet 5 MG PO ×2 (08:41→21:54)
[2023-05-18] MEDS: buPROPion (SR) 150 MG Tablet.SA PO (08:41)
[2023-05-18] MEDS: OLANZapine 10 MG Tablet PO (08:41)
--- NOTE | 2023-05-18 08:46 | PN.HOSP_ITS ---
Reason for Visit Reason for Visit: Diagnoses Disease of spinal cord, unspecified (05/17/23) Other intervertebral disc degeneration, lumbar region (05/17/23) Radiculopathy, lumbosacral region (05/17/23) Subjective Subjective Patient feels slightly stronger in hands with the steroids but still very weak, still has back pain and denied any other acute complaints Objective Data Objective Data Vital Signs: Vital Signs Temp Pulse Resp BP Pulse Ox O2 Del Method O2 Flow Rate 98.4 F 82 18 148/88 H 95 Room Air 2 05/18/23 06:14 05/18/23 08:40 05/18/23 06:14 05/18/23 06:14 05/18/23 06:14 05/18/23 06:14 05/16/23 03:00 Oxygen Flow Rate (L/min) 2 Oxygen Delivery Method Room Air Weight: 76 kg Body Mass Index (BMI) 25.4 Intake & Output: Intake and Output for Last 24 Hours 05/16/23 05/17/23 05/18/23 23:59 23:59 23:59 Intake Total 600 / 600 500 / 500 820 / 820 Output Total 400 / 400 1900 / 1900 700 / 700 Balance 200 / 200 -1400 / -1400 120 / 120 Lab / Micro Data 05/18/23 07:52 05/17/23 07:15 Labs: Laboratory Results - last 24 hr 05/18/23 07:52: WBC 12.9 H, RBC 4.15 L, Hgb 12.0, Hct 36.8 L, MCV 88.7, MCH 28.9, MCHC 32.6, RDW Std Deviation 43.6, RDW Coeff of Sandeep 13.4, Plt Count 301, MPV 10.5, Immature Gran % (Auto) 0.600, Neut % (Auto) 88.2 H, Lymph % (Auto) 7.1 L, [place] % (Auto) 3.9, Eos % (Auto) 0.0, Baso % (Auto) 0.2, Absolute Neuts (auto) 11.3 H, Absolute Lymphs (auto) 0.91, Nucleated RBC % 0 Physical Exam Narrative General: Alert, oriented, no apparent distress HEENT: Atraumatic, normocephalic Eyes: Anicteric, normal conjunctiva, extraocular movements grossly intact Neck: Supple Respiratory: Scattered wheezes, normal respiratory effort Cardiovascular: Regular rate and rhythm GI: Soft, nontender, nondistended Extremities: No edema 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 Prior MRI done in October did not show any significant spinal canal stenosis, no surgical intervention was indicated at that time. There has been a progressive worsening of her pain, and imbalance -05/16: PT/OT, scheduled Tylenol, added additional as needed's, Dr. Chance with Ortho saw patient and requested urgent MRI of the cervical spine given her weakness of her upper extremities and hyperreflexia, this has been ordered -05/17: MRI cervical spine showed cervical spondylosis and degenerative disc disease with severe central and bilateral foraminal stenosis at C3-5 with myelopathic cord signal at those 2 levels. Discussed yesterday evening with Ortho neuro and it was recommended patient be placed in cervical collar and started on steroids. Patient much more comfortable objectively after adjusting pain medications and starting steroids but still continues to have weakness and numbness/neuro symptoms. Patient may need surgery based on discussion with Ortho, continue present management and will await follow-up eval -05/18:Pt to go to OR today, it was requested the patient be medically cleared for urgent surgery. NSQIP risk calculator shows patient with a 12.3% risk of any complication with the average being 8.4 and her risk of serious complication 10.3% with average risk of 7.0% indicating patient is considered above average in regards to risk. She is presently medically optimized in regards to her chronic conditions, will continue present management perioperatively. #Falls/imbalance: This is likely related to her lower extremity pain, there are no features of neuropathy at this time. Following the fall, no major injury to the head or spine noted. Physical therapy Occupational Therapy are consulted and will see the patient tomorrow. -05/16: PT/OT -05/18: We reevaluated after surgery #Chronic pain management: To tide over the acute worsening of her pain we would start oxycodone 5 mg as needed, continue home medications including the pregabalin. -05/16: Continue baclofen, Lyrica, scheduled Tylenol, as needed medication added/adjusted -05/17: Patient still reports significant pain however does appear more comfortable with steroids and pain medication adjustments -05/18: Continue perioperative pain management #Hypokalemia: Corrected with IV KCl 20 mEq over 2 hours. -05/16: Replace #Hypothyroidism -Continue Synthroid #Psychiatric disorder NOS -Continue home medications #Hypertension -On amlodipine and metoprolol #GERD -Continue PPI #COPD -Continue home inhalers #Constipation: Given the ongoing opioid therapy, chronic back pain we will start her on MiraLAX to prevent any constipation. #DVT ppx: lovenox sub q Virginia Araujo MD Time spent in the patient's overall evaluation,decision-making process, review of diagnostic data, adjustment of management, discussion with other providers, nursing nursing and ancillary staff involved in patient's care documentation,36 Minutes Charges/Coding Visit Charges Inpatient E&M: 71228 Subs Hosp L2
[2023-05-18 09:50] LABS: Anion Gap 1 (5-15); BUN 23 mg/dL (7-18); Calcium,Total 8.8 mg/dL (8.5-10.1); Chloride 112 mmol/L (98-107); Creatinine, Serum 0.72 mg/dL (0.55-1.02); EST Glomerular Filtration Rate 90 mL/min (>60); Est Glom Filt Rate - Afr Amer 108 mL/min (>60); Estimated Creatinine Clearance 89.06 ml/min; Glucose 136 mg/dL (74-106); Potassium 4.6 mmol/L (3.5-5.1); Sodium Level 140 mmol/L (136-145); Thyroid Stim Hormone (TSH) 0.49 uIU/mL (0.358-3.74)
--- NOTE | 2023-05-18 11:30 | RAD_ITS ---
PROCEDURE: C3 C5 anterior cervical fusion. DATE OF EXAMINATION: May 18, 2023. INDICATION: Female, 53 years old. Neck pain. FLUOROSCOPY TIME (if supplied): (10.4 seconds) minutes/seconds. 0.46 mGy. 2 images were obtained. RAD/Cerv Spine 2 or 3 Views IMPRESSION: Intraoperative imaging provided for anterior fusion at the C3-C4 and C4-C5 levels with prosthetic disc placement Electronically Signed: Kaushik Buck MD at 13:46 EST ,
[2023-05-18] MEDS: Lactated Ringers 1,000 ML 15 ML IV (11:51)
--- NOTE | 2023-05-18 12:29 | PCM.HP.BLA ---
History and Physical Subjective Seen today on the floor. She is a little comfortable with the steroids and collar compared to yesterday. Continues to have difficulty with hand weakness and difficulty walking. She has not ambulated while in house. She is on video call with her sister and wants to discuss details of surgery. To review, Over the last 1 months she has noticed severe worsening balance such that she has felt that her legs give out on her and she has had multiple falls. She is right-hand dominant. She has left worse than right upper extremity weakness and difficulty with dexterity such that she is unable to eat by herself without dropping the food. She has difficulty pulling on the tissues from a box. She has been unable to walk to the bathroom and has been using a bedpan for urination. She has felt constipation and has not had no not had a bowel movement for a while. She mentions that she underwent spinal cord stimulator placement on April 20 but this was removed in April 25. She mentions that this was the timeline where her weakness and pain worsened. She is unable to recollect if the trial of spinal cord stimulator helped. She has undergone a lower back surgery, which based on the available imaging was likely and decompression surgery. Objective Data Objective Data Vital Signs: Vital Signs Temp Pulse Resp BP Pulse Ox O2 Del Method O2 Flow Rate 98.1 F 90 18 133/79 H 95 Room Air 2 05/17/23 08:25 05/17/23 12:48 05/17/23 12:48 05/17/23 08:25 05/17/23 08:25 05/17/23 08:26 05/16/23 03:00 Oxygen Flow Rate (L/min) 2 Oxygen Delivery Method Room Air Weight: 167 lb 8.821 oz Body Mass Index (BMI) 25.4 Intake & Output: Intake and Output for Last 24 Hours 05/15/23 05/16/23 05/17/23 23:59 23:59 23:59 Intake Total 1200 / 1200 600 / 600 Output Total 400 / 400 700 / 700 Balance 1200 / 1200 200 / 200 -700 / -700 Lab / Micro Data 05/17/23 07:15 05/17/23 07:15 Labs: Laboratory Results - last 24 hr 05/17/23 07:15: WBC 15.8 H, RBC 4.55, Hgb 13.2, Hct 41.3, MCV 90.8, MCH 29.0, MCHC 32.0, RDW Std Deviation 43.0, RDW Coeff of Sandeep 13.0, Plt Count 284, MPV 10.6, Immature Gran % (Auto) 0.500, Neut % (Auto) 93.5 H, Lymph % (Auto) 3.9 L, [place] % (Auto) 2.0, Eos % (Auto) 0.0, Baso % (Auto) 0.1, Absolute Neuts (auto) 14.8 H, Absolute Lymphs (auto) 0.62 L, Nucleated RBC % 0, Sodium 135 L, Potassium 5.2 H, Chloride 110 H, Carbon Dioxide 24.0, Anion Gap 1 L, BUN 28 H, Creatinine 0.85, Estim Creat Clear Calc 75.44, Est GFR (MDRD) Af Amer 89, Est GFR (MDRD) Non-Af 73, BUN/Creatinine Ratio 32.8 H, Glucose 171 H, Calcium 9.0 Radiography Diagnostic Testing: Radiology Impression Cervical Spine MRI 05/16/23 11:22 IMPRESSION: Cervical spondylosis and degenerative disc disease with severe central and bilateral foraminal stenoses at C3-4 and C4-5. Myelopathic cord signal at these 2 levels. Electronically Signed: Swapnil Cronin MD at 16:43 EST Reading Location ID and State: [facility] [place] Tel , Service support , Physical Exam Narrative Examination of the neck and back shows midline and paraspinal tenderness. Prior midline scar in lower lumbar spine noticed which is about 1 inch vertical. Neurologic evaluation of upper and lower extremities shows 4 - power in all muscle groups. Terrance's is positive bilaterally. Knee reflexes are brisk. There is no clonus. Assessment & Plan Assessment/Plan (1) Cervical myelopathy: PLAN: Plan I reviewed her MRI cervical spine done last night. This shows severe C3-5 stenosis with cord compression and cord signal changes. I explained to her the findings in detail. Explained to her that she is developing progressive worsening cervical myelopathy with worsening dexterity and balance issues. She is currently unable to raveler things with her hands bilaterally and has difficulty eating. She has not been able to ambulate at least since admission. I recommended urgent surgical decompression in order to halt progression of myelopathy. I explained to her that the surgery will help stop the worsening of her hand weakness and inability to ambulate issues, it may improve by some degree, but may not become completely normal. I recommend C3-5 ACDF. All risk benefits and alternatives were discussed in detail. The risks include but are not limited to infection, bleeding, injury to nerves and vessels, vertebral artery injury, spinal cord injury, paralysis, vocal cord paralysis, injury to esophagus, pseudoarthrosis, need for further procedures, adjacent segment degeneration. Patient understands and agrees to the procedure.
[2023-05-18] MEDS: Cefazolin 2 GM in 0.9% Normal Saline (100mL Bag) 100 ML IV (13:15)
--- NOTE | 2023-05-18 15:38 | OP.PCM_ITS ---
Report of Operation Date of Procedure: 05/18/23 Description of Surgical Findings:: Preoperative diagnosis: C3-5 spondylolisthesis with stenosis, cord compression, cord signal changes Postoperative diagnosis: Same Name of procedure: C3-5 anterior cervical discectomy and fusion with plate instrumentation - Anterior cervical fusion C3-4, CPT code 57459 - Anterior plate instrumentation C3-4, CPT code 76473/59 - Anterior cervical fusion C4-5, CPT code 20067/51 - Anterior cervical fusion C4-5, CPT code 81874/51 - Structural allograft bone with DBX, CPT code 53112 Attending surgeon: Kendall Skinner M.D. Co-surgeon: Dr. Tony Wright Anesthesia: Gen. endotracheal Estimated blood loss: 40 mL Complications: None Instrumentation used: Blue water surgical spider plate, LASR corticocancellous block Indications: The patient is a pleasant 53-year-old lady who presented with multiple falls, inability to walk, severe weakness in all 4 extremities, difficulty with dexterity and eating, neck pain. Her myelopathic symptoms worsened over a period of 1 month. MRI showed C3-5 spondylolisthesis with severe stenosis with cord compression and cord signal changes. In order to halt the progression of myelopathy, the patient requested surgical treatment. All risks and benefits of the procedure were explained to the patient. The risks include but are not limited to infection, bleeding, injury to nerves and vessels, vertebral artery injury, spinal cord injury, paralysis, vocal cord paralysis, injury to esophagus, pseudoarthrosis, need for further procedures, adjacent segment degeneration. Procedure: The patient was identified in the preoperative suite using unique patient identifiers. Skin was marked consent was taken and all questions were answered. The patient was then brought back to the operative room and a timeout was performed. General endotracheal anesthesia was given. Intraoperative neuro monitoring leads were applied. The patient was carefully positioned supine on a regular OR table. A lateral view with a C-arm was done to identify the level and to define the incision. The anterior neck was then prepped and draped in the usual fashion. A final timeout was then performed. A transverse skin incision was taken to the left of midline. Subcutaneous tissue was then divided with Bovie. Platysma was identified and cut along the incision with scissors. The fascial interval between the sternocleidomastoid and the larynx was developed. Omohyoid was identified and retracted. The esophagus with the larynx was retracted medially to reach the prevertebral fascia. Marker x-ray was performed with bent spinal needle and disc space and levels were confirmed. Longus coli muscle was elevated on both sides at and above and below C3-5 discs. Self-retaining retractors were then placed. A long handle knife was then used to perform annulotomy at C3-4. Disc fragments were removed with the pituitary. [place] pins were placed in C3 and C4 for disc distraction. Curettes and bur was utilized to remove cartilage from the endplates. Discectomy was performed laterally up to the uncovertebral joints. Posterior osteophytes were thinned down with the bur and adequate decompression in the central and foraminal areas were performed and PLL was thinned out. Once the disc space was prepared, trials of various sizes were utilized. Thorough irrigation was given. 7 mm LASR cortical cancellous allograft bone large footprint was then fashioned in such a way that concavities were burred out inferiorly and superiorly and half cc of DBX (demineralized bone matrix) was squeezed into the cancellous portion. The graft was then inserted into the C3-4 disc space. The retractors were then repositioned and the procedure was repeated for C4-5 disc with complete discectomy and decompression. Graft size was 6 mm at with large footprint at C4-5. The grafts were found to be in good apposition with good pullout strength. A 42 mm [place] surgical spider plate was then fixed to C3-5 with 14 mm screws. A lateral x-ray was then taken to check the length of the screws. Both AP and lateral x-rays showed good positioning of plate and screws. Thorough irrigation was again given. Hemostasis was achieved. A [place] drain was then inserted. Closure was done with 3-0 Vicryl for the platysma and subcutaneous tissue layers and 4-0 Monocryl for the skin. Closure was done around the drain. Steri-Strips were applied and dressing was done with 4 x 4 gauze and Tegaderm. A cervical collar was then applied. The patient was then woken up from anesthesia extubated and taken to PACU in stable condition. From here, the patient will be transitioned to the floor. Intraoperative neuro monitoring was performed throughout this procedure. Motor evoked potentials were run periodically. All potentials remained at baseline throughout the procedure. I was present for the entire surgery and performed th e surgery myself. Drains: Merly Admit VTE Documentation VTE Mechan Device Prophylaxis: SCD's Reason prophylaxis not ordered:: Treatment Not Indicated Procedures Musculoskeletal [id number]: Other Procedure See Report
--- NOTE | 2023-05-18 16:14 | PN.ORTHO_ITS ---
Subjective Subjective Seen in PACU postop status post C3-5 ACDF. Following commands. Moving all 4 extremities. Neuro exam?stable as preop. Plan: -IV antibiotics for 24 hours. -Aggressive PT OT mobilization. -Hold anticoagulation for 72 hours postop. -SCDs for DVT mechanical prophylaxis. -Soft diet for expected dysphagia from ACDF surgery. -Upright x-rays cervical spine when able. Objective Data Objective Data Vital Signs: Vital Signs Temp Pulse Resp BP Pulse Ox O2 Del Method O2 Flow Rate 97.7 F L 92 16 155/99 H 93 Room Air 2 05/18/23 16:02 05/18/23 16:02 05/18/23 16:02 05/18/23 16:02 05/18/23 16:02 05/18/23 16:02 05/16/23 03:00 Oxygen Flow Rate (L/min) 2 Oxygen Delivery Method Room Air Weight: 167 lb 8.821 oz Body Mass Index (BMI) 25.4 Intake & Output: Intake and Output for Last 24 Hours 05/16/23 05/17/23 05/18/23 23:59 23:59 23:59 Intake Total 600 / 600 500 / 500 930 / 930 Output Total 400 / 400 1900 / 1900 700 / 700 Balance 200 / 200 -1400 / -1400 230 / 230 Lab / Micro Data 05/18/23 07:52 05/18/23 07:52 Labs: Laboratory Results - last 24 hr 05/18/23 07:52: WBC 12.9 H, RBC 4.15 L, Hgb 12.0, Hct 36.8 L, MCV 88.7, MCH 28.9, MCHC 32.6, RDW Std Deviation 43.6, RDW Coeff of Sandeep 13.4, Plt Count 301, MPV 10.5, Immature Gran % (Auto) 0.600, Neut % (Auto) 88.2 H, Lymph % (Auto) 7.1 L, [place] % (Auto) 3.9, Eos % (Auto) 0.0, Baso % (Auto) 0.2, Absolute Neuts (auto) 11.3 H, Absolute Lymphs (auto) 0.91, Nucleated RBC % 0, Sodium 140, Potassium 4.6, Chloride 112 H, Carbon Dioxide 27.0, Anion Gap 1 L, BUN 23 H, Creatinine 0.72, Estim Creat Clear Calc 89.06, Est GFR (MDRD) Af Amer 108, Est GFR (MDRD) Non-Af 90, BUN/Creatinine Ratio 32.0 H, Glucose 136 H, Calcium 8.8, TSH 0.49
[2023-05-18] MEDS: Lactated Ringers 1,000 ML 100 ML IV (17:18)
[2023-05-18] MEDS: Ketorolac 15 MG/ML Vial IV (17:18)
[2023-05-18] MEDS: Famotidine 20 MG Tablet PO (21:54)
[2023-05-18] MEDS: Cefazolin 1 GM/50 ML BAG IV (21:54)
[2023-05-18] MEDS: Docusate Sodium 100 MG Capsule 200 MG PO (21:54)
[2023-05-18] MEDS: traZODone 100 MG Tablet 150 MG PO (21:54)
[2023-05-18] MEDS: Atorvastatin Calcium 40 MG Tablet PO (21:59)
[2023-05-19] VITALS (11 sets, daily range): BP systolic 129–142; BP diastolic 82–90; PULSE 71–82; RESP 16–19; TEMP 36.5–36.9; O2SAT 94–97
[2023-05-19] MEDS: dexAMETHasone 4 MG/ML Vial IV ×4 (01:13→17:57)
[2023-05-19] MEDS: Acetaminophen 500 MG Tablet 1000 MG PO ×3 (05:14→21:43)
[2023-05-19] MEDS: Pregabalin 75 MG Capsule 150 MG PO ×3 (05:14→21:42)
[2023-05-19] MEDS: Levothyroxine 25 MCG TABLET PO (05:14)
[2023-05-19] MEDS: Cefazolin 1 GM/50 ML BAG IV (05:14)
[2023-05-19 06:40] LABS: Absolute Lymphocyte Count 0.82 X10^3/uL (0.83-4.51); Absolute Neutrophil Count 11.1 X10^3/uL (2.0-7.7); Basophil# 0.01 X10^3/uL; Basophil% 0.1 % (0-1); Hematocrit 35.6 % (37-47); Hemoglobin 11.4 g/dL (12.0-15.0); Lymphocyte # 0.82 X10^3/ul (0.83-4.51); Lymphocyte % 6.5 % (19-41); Mean Corpuscular Hgb 28.9 pg (27.0-32.0); Mean Corpuscular Volume 90.4 fL (81-99); Mean Platelet Vol. 10.4 fl (6.2-12.0); Monocyte# 0.65 X10^3/uL; Monocyte% 5.1 % (0-10); NRBC Flagged by Analyzer 0 % (0-5); Neutrophil # 11.12 X10^3/uL (2.7-7.7); Neutrophil % 87.7 % (47-70); Platelet Count 295 K/mm3 (150-450); RBC Distribution Width CV 13.3 % (11.6-14.6); RBC Distribution Width SD 44.4 fl (35.1-43.9); Red Blood Count 3.94 M/mm3 (4.2-5.4); White Blood Count 12.7 K/mm3 (4.4-11.0)
[2023-05-19 07:09] LABS: Anion Gap 1 (5-15); BUN 19 mg/dL (7-18); BUN/Creat Ratio 30.4 RATIO (10-20); Calcium,Total 8.5 mg/dL (8.5-10.1); Chloride 105 mmol/L (98-107); Creatinine, Serum 0.62 mg/dL (0.55-1.02); EST Glomerular Filtration Rate 105 mL/min (>60); Est Glom Filt Rate - Afr Amer 128 mL/min (>60); Estimated Creatinine Clearance 103.42 ml/min; Glucose 132 mg/dL (74-106); Potassium 4.7 mmol/L (3.5-5.1); Sodium Level 138 mmol/L (136-145)
[2023-05-19] MEDS: Budesonide Respules 0.5 MG/2 ML AMPUL.NEB. INHALATION ×2 (07:18→19:18)
[2023-05-19] MEDS: Ipratropium/Albuterol Sulfate 3 ML AMPUL.NEB INHALATION ×3 (07:18→19:18)
[2023-05-19] MEDS: oxyCODONE 5 MG Tablet PO ×3 (08:30→21:42)
[2023-05-19] MEDS: Ferrous Sulfate 325 MG Tablet PO ×2 (08:31→16:33)
[2023-05-19] MEDS: Docusate Sodium 100 MG Capsule 200 MG PO ×2 (08:31→21:44)
[2023-05-19] MEDS: Tolterodine Tartrate 2 MG CAP.SA PO (08:32)
[2023-05-19] MEDS: Baclofen 10 MG Tablet 5 MG PO ×2 (08:32→21:43)
[2023-05-19] MEDS: amLODIPine 10 MG Tablet PO (08:33)
[2023-05-19] MEDS: Mirabegron 25 MG TAB.ER.24H PO (08:33)
[2023-05-19] MEDS: FLUoxetine 20 MG Capsule 60 MG PO (08:34)
[2023-05-19] MEDS: Pantoprazole Sodium 20 MG Tablet PO (08:34)
[2023-05-19] MEDS: Metoprolol(XL)Succ 25 MG Tablet PO (08:35)
[2023-05-19] MEDS: Cholecalciferol (VIT D3) 25 MCG TABLET (1,000 UNITS) PO (08:39)
[2023-05-19] MEDS: buPROPion (SR) 150 MG Tablet.SA PO (08:40)
[2023-05-19] MEDS: OLANZapine 10 MG Tablet PO (08:40)
--- NOTE | 2023-05-19 09:12 | PCM.PN.HOSP ---
Reason for Visit Reason for Visit: Diagnoses Disease of spinal cord, unspecified (05/17/23) Other intervertebral disc degeneration, lumbar region (05/17/23) Radiculopathy, lumbosacral region (05/17/23) Subjective Subjective Still some weakness and numbness in hands, status post surgery, lower extremities roughly the same, patient tolerating collar Objective Data Objective Data Vital Signs: Vital Signs Temp Pulse Resp BP Pulse Ox O2 Del Method O2 Flow Rate 98.2 F 72 18 136/90 H 97 Nasal Cannula 2 05/19/23 09:08 05/19/23 09:08 05/19/23 09:08 05/19/23 09:08 05/19/23 09:08 05/19/23 09:08 05/19/23 09:08 Oxygen Flow Rate (L/min) 2 Oxygen Delivery Method Nasal Cannula Weight: 76 kg Body Mass Index (BMI) 25.4 Intake & Output: Intake and Output for Last 24 Hours 05/17/23 05/18/23 05/19/23 23:59 23:59 23:59 Intake Total 500 / 500 2696.67 / 2696.67 1550 / 1550 Output Total 1900 / 1900 1400 / 1400 2300 / 2300 Balance -1400 / -1400 1296.67 / 1296.67 -750 / -750 Lab / Micro Data 05/19/23 06:18 05/19/23 06:18 Labs: Laboratory Results - last 24 hr 05/18/23 07:52: Sodium 140, Potassium 4.6, Chloride 112 H, Carbon Dioxide 27.0, Anion Gap 1 L, BUN 23 H, Creatinine 0.72, Estim Creat Clear Calc 89.06, Est GFR (MDRD) Af Amer 108, Est GFR (MDRD) Non-Af 90, BUN/Creatinine Ratio 32.0 H, Glucose 136 H, Calcium 8.8, TSH 0.49 05/19/23 06:18: WBC 12.7 H, RBC 3.94 L, Hgb 11.4 L, Hct 35.6 L, MCV 90.4, MCH 28.9, MCHC 32.0, RDW Std Deviation 44.4 H, RDW Coeff of Sandeep 13.3, Plt Count 295, MPV 10.4, Immature Gran % (Auto) 0.600, Neut % (Auto) 87.7 H, Lymph % (Auto) 6.5 L, [place] % (Auto) 5.1, Eos % (Auto) 0.0, Baso % (Auto) 0.1, Absolute Neuts (auto) 11.1 H, Absolute Lymphs (auto) 0.82 L, Nucleated RBC % 0, Sodium 138, Potassium 4.7, Chloride 105, Carbon Dioxide 32.0, Anion Gap 1 L, BUN 19 H, Creatinine 0.62, Estim Creat Clear Calc 103.42, Est GFR (MDRD) Af Amer 128, Est GFR (MDRD) Non-Af 105, BUN/Creatinine Ratio 30.4 H, Glucose 132 H, Calcium 8.5 Physical Exam Narrative General: Alert, oriented, no apparent distress HEENT: Atraumatic, normocephalic Eyes: Anicteric, normal conjunctiva, extraocular movements grossly intact Neck: Supple Respiratory: Clear to auscultation bilaterally, normal respiratory effort Cardiovascular: Regular rate GI: Soft, nontender, nondistended Extremities: No edema Musculoskeletal: 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 Prior MRI done in October did not show any significant spinal canal stenosis, no surgical intervention was indicated at that time. There has been a progressive worsening of her pain, and imbalance -05/16: PT/OT, scheduled Tylenol, added additional as needed's, Dr. Chance with Ortho saw patient and requested urgent MRI of the cervical spine given her weakness of her upper extremities and hyperreflexia, this has been ordered -05/17: MRI cervical spine showed cervical spondylosis and degenerative disc disease with severe central and bilateral foraminal stenosis at C3-5 with myelopathic cord signal at those 2 levels. Discussed yesterday evening with Ortho neuro and it was recommended patient be placed in cervical collar and started on steroids. Patient much more comfortable objectively after adjusting pain medications and starting steroids but still continues to have weakness and numbness/neuro symptoms. Patient may need surgery based on discussion with Ortho, continue present management and will await follow-up eval -05/18:Pt to go to OR today, it was requested the patient be medically cleared for urgent surgery. NSQIP risk calculator shows patient with a 12.3% risk of any complication with the average being 8.4 and her risk of serious complication 10.3% with average risk of 7.0% indicating patient is considered above average in regards to risk. She is presently medically optimized in regards to her chronic conditions, will continue present management perioperatively. -05/19: Patient status post C3-5 ACDF on 05/18 and tolerated this well. IV antibiotics for 24 hours, PT/OT, SCDs added for DVT prophylaxis, hold AC for 72 hours, soft diet #Falls/imbalance: This is likely related to her lower extremity pain, there are no features of neuropathy at this time. Following the fall, no major injury to the head or spine noted. Physical therapy Occupational Therapy are consulted and will see the patient tomorrow. -05/16: PT/OT -05/18: We reevaluated after surgery -05/19: PT/OT, suspect patient may need placement #Chronic pain management: To tide over the acute worsening of her pain we would start oxycodone 5 mg as needed, continue home medications including the pregabalin. -05/16: Continue baclofen, Lyrica, scheduled Tylenol, as needed medication added/adjusted -05/17: Patient still reports significant pain however does appear more comfortable with steroids and pain medication adjustments -05/18: Continue perioperative pain management #Hypokalemia: Corrected with IV KCl 20 mEq over 2 hours. -05/16: Replace #Hypothyroidism -Continue Synthroid #Psychiatric disorder NOS -Continue home medications #Hypertension -On amlodipine and metoprolol #GERD -Continue PPI #COPD -Continue home inhalers #Constipation: Given the ongoing opioid therapy, chronic back pain we will start her on MiraLAX to prevent any constipation. #DVT ppx: SCDs Virginia Araujo MD Time spent in the patient's overall evaluation,decision-making process, review of diagnostic data, adjustment of management, discussion with other providers, nursing nursing and ancillary staff involved in patient's care documentation,36 Minutes Charges/Coding Visit Charges Inpatient E&M: 83163 Subs Hosp L2
[2023-05-19] MEDS: Meloxicam 15 MG Tablet PO (10:14)
--- NOTE | 2023-05-19 10:45 | CASEMGMT ---
Addendum entered by Shruthi Saunders 05/19/23 16:26: Discharge Planning CC declined patient. Patient updated an requested referral be sent to [facility]. Referral sent via [employer]. Shruthi Saunders, Discharge Planning Asst. Original Note: Discharge Planning Referral sent to [facility] via [facility]. Shruthi Saunders, Discharge Planning Asst.
--- NOTE | 2023-05-19 10:46 | CASEMGMT ---
Social Work SW met with pt and introduced self and role of SW. Pt willing to speak with SW. SW provided pt with community resources including transportation, [place] and local AA schedule. Pt accepting of information and denies further community resources at this time. Phone call placed to [facility] and left regarding obtaining a new mental health outpatient case manager for pt. SW will await return call. SW spoke with pt regarding functional ability with therapy during evaluations this morning. After discussion of options, pt is agreeable to short term SNF placement prior to return home. A list of SNF providers including quality and resource use data and consistent with the patient?s preferred geographic region, medical needs, and insurance network were provided from the [employer]Port Guide. Pt preferred provider is [facility]. Referral to be made to [facility], precert will be needed. DC wellness assistant updated and to send referral. Plan: [facility], pending acceptance and precert ZAN Ochoa
--- NOTE | 2023-05-19 11:30 | RAD_ITS ---
STUDY: X-RAY - CERVICAL SPINE REASON FOR EXAM: Female, 53 years old. Anterior fusion from C3 to C5. Follow-up. TECHNIQUE: 2 view(s) of the cervical spine were obtained. COMPARISON: April 29, 2023. FINDINGS: Normal anterior atlantoaxial articulation. Normal odontoid process. Stable reversal of the normal lordotic curve. Anterior fusion from C3 to C5 with intervertebral disc prostheses at C3-4 and C4-5. Anatomic alignment without complications. Stable diffuse moderate uncovertebral and facet sclerosis. Disc degeneration at C6-7 with osteophyte formation, unchanged. Normal soft tissues. RAD/Cerv Spine 2 or 3 Views IMPRESSION: Uncomplicated anterior fusion from C3 to C5 as described Electronically Signed: Douglas Holman MD at 11:58 EST ,
[2023-05-19] MEDS: 0.9% Saline Lock 10 ML Syringe IV ×2 (12:39→17:57)
--- NOTE | 2023-05-19 12:56 | PCM.PN.ORT ---
Subjective Subjective Postop day 1 status post C3-5 ACDF. Patient doing well. She was able to stand and walk a few feet with physical therapy for the first time after many days. She is tolerating the collar well. She denies any significant swallowing issues and has tried solid food this morning. She mentions slight improvement in her extremity strength and balance. Objective Data Objective Data Vital Signs: Vital Signs Temp Pulse Resp BP Pulse Ox O2 Del Method O2 Flow Rate 98.2 F 72 18 136/90 H 97 Nasal Cannula 2 05/19/23 09:08 05/19/23 09:08 05/19/23 09:08 05/19/23 09:08 05/19/23 09:21 05/19/23 09:08 05/19/23 09:21 Oxygen Flow Rate (L/min) 2 Oxygen Delivery Method Nasal Cannula Weight: 167 lb 8.821 oz Body Mass Index (BMI) 25.4 Intake & Output: Intake and Output for Last 24 Hours 05/17/23 05/18/23 05/19/23 23:59 23:59 23:59 Intake Total 500 / 500 2696.67 / 2696.67 1550 / 1550 Output Total 1900 / 1900 1400 / 1400 3100 / 3100 Balance -1400 / -1400 1296.67 / 1296.67 -1550 / -1550 Lab / Micro Data 05/19/23 06:18 05/19/23 06:18 Labs: Laboratory Results - last 24 hr 05/19/23 06:18: WBC 12.7 H, RBC 3.94 L, Hgb 11.4 L, Hct 35.6 L, MCV 90.4, MCH 28.9, MCHC 32.0, RDW Std Deviation 44.4 H, RDW Coeff of Sandeep 13.3, Plt Count 295, MPV 10.4, Immature Gran % (Auto) 0.600, Neut % (Auto) 87.7 H, Lymph % (Auto) 6.5 L, [place] % (Auto) 5.1, Eos % (Auto) 0.0, Baso % (Auto) 0.1, Absolute Neuts (auto) 11.1 H, Absolute Lymphs (auto) 0.82 L, Nucleated RBC % 0, Sodium 138, Potassium 4.7, Chloride 105, Carbon Dioxide 32.0, Anion Gap 1 L, BUN 19 H, Creatinine 0.62, Estim Creat Clear Calc 103.42, Est GFR (MDRD) Af Amer 128, Est GFR (MDRD) Non-Af 105, BUN/Creatinine Ratio 30.4 H, Glucose 132 H, Calcium 8.5 Radiography Diagnostic Testing: Radiology Impression Cervical Spine X-Ray 05/19/23 11:30 IMPRESSION: Uncomplicated anterior fusion from C3 to C5 as described Electronically Signed: Douglas Holman MD at 11:58 EST , Physical Exam Narrative Examination of the neck shows sanguinous drainage from the [place] drain. Merly drain was removed and new gauze dressing applied. Collar fitting well. Neurologic evaluation shows 4+ by 5 power in all muscle groups in both upper and both lower extremities improved from preoperative strength. Terrance's positive on the right at baseline. Assessment & Plan Assessment/Plan (1) S/P cervical spinal fusion: PLAN: Plan Upright x-rays reviewed. Appropriate alignment and placement of hardware. Minimal prevertebral swelling. I explained to the patient the importance of aggressive physical therapy to regain strength in all her extremities. I suggested trying soft diet if she develops any dysphagia with solid food over the next few days. Staying upright will help reduce swelling. Collar should stay on at all times at least till 2-week follow-up visit. She should try out of bed to chair and back to bed multiple times a day. Discharge likely based on PT recommendations, if rehab needed. Will continue to follow while in-house. She will follow-up with me in 2 weeks in the clinic.
--- NOTE | 2023-05-19 14:29 | CASEMGMT ---
YAYA HUGHES called [facility] [place] to verify oxygen order. Per Lynda, pt. is on 2 lpm oxygen continuous and also has a nebulizer.
--- NOTE | 2023-05-19 15:49 | CASEMGMT ---
Social Work SW received a VM from Sharon at [facility] ([phone]). Sharon will add pt to the referral list for a mental health case reviewer and will be reaching out to pt in the coming weeks. ZAN Ochoa
[2023-05-19] MEDS: traZODone 100 MG Tablet 150 MG PO (21:43)
[2023-05-19] MEDS: Famotidine 20 MG Tablet PO (21:44)
[2023-05-19] MEDS: Atorvastatin Calcium 40 MG Tablet PO (21:44)
[2023-05-20] VITALS (7 sets, daily range): BP systolic 133–151; BP diastolic 84–97; PULSE 64–80; RESP 15–18; TEMP 36.4–36.9; O2SAT 94–96
[2023-05-20] MEDS: 0.9% Saline Lock 10 ML Syringe IV ×4 (00:02→17:46)
[2023-05-20] MEDS: dexAMETHasone 4 MG/ML Vial IV ×4 (00:02→18:42)
[2023-05-20 05:13] LABS: Absolute Lymphocyte Count 0.99 X10^3/uL (0.83-4.51); Absolute Neutrophil Count 8.5 X10^3/uL (2.0-7.7); Basophil# 0.01 X10^3/uL; Basophil% 0.1 % (0-1); Hematocrit 35.9 % (37-47); Hemoglobin 11.7 g/dL (12.0-15.0); Lymphocyte # 0.99 X10^3/ul (0.83-4.51); Lymphocyte % 9.5 % (19-41); Mean Corp Hgb Conc 32.6 g/dL (32-36); Mean Corpuscular Hgb 29.5 pg (27.0-32.0); Mean Corpuscular Volume 90.4 fL (81-99); Mean Platelet Vol. 10.1 fl (6.2-12.0); Monocyte# 0.89 X10^3/uL; Monocyte% 8.6 % (0-10); NRBC Flagged by Analyzer 0 % (0-5); Neutrophil # 8.45 X10^3/uL (2.7-7.7); Neutrophil % 81.2 % (47-70); Platelet Count 304 K/mm3 (150-450); RBC Distribution Width CV 13.2 % (11.6-14.6); RBC Distribution Width SD 43.8 fl (35.1-43.9); Red Blood Count 3.97 M/mm3 (4.2-5.4); White Blood Count 10.4 K/mm3 (4.4-11.0)
[2023-05-20] MEDS: Levothyroxine 25 MCG TABLET PO (05:34)
[2023-05-20] MEDS: Acetaminophen 500 MG Tablet 1000 MG PO ×3 (05:34→21:32)
[2023-05-20 05:38] LABS: Anion Gap 4 (5-15); BUN 27 mg/dL (7-18); BUN/Creat Ratio 47.3 RATIO (10-20); Chloride 107 mmol/L (98-107); Creatinine, Serum 0.57 mg/dL (0.55-1.02); EST Glomerular Filtration Rate 117 mL/min (>60); Est Glom Filt Rate - Afr Amer 141 mL/min (>60); Estimated Creatinine Clearance 112.49 ml/min; Glucose 159 mg/dL (74-106); Potassium 4.4 mmol/L (3.5-5.1); Sodium Level 141 mmol/L (136-145)
[2023-05-20] MEDS: Pregabalin 75 MG Capsule 150 MG PO ×3 (05:39→21:31)
[2023-05-20] MEDS: buPROPion (SR) 150 MG Tablet.SA PO (10:01)
[2023-05-20] MEDS: Meloxicam 15 MG Tablet PO (10:01)
[2023-05-20] MEDS: Ferrous Sulfate 325 MG Tablet PO ×2 (10:01→17:46)
[2023-05-20] MEDS: OLANZapine 10 MG Tablet PO (10:01)
[2023-05-20] MEDS: Cholecalciferol (VIT D3) 25 MCG TABLET (1,000 UNITS) PO (10:01)
[2023-05-20] MEDS: Baclofen 10 MG Tablet 5 MG PO ×2 (10:01→21:32)
[2023-05-20] MEDS: Tolterodine Tartrate 2 MG CAP.SA PO (10:02)
[2023-05-20] MEDS: amLODIPine 10 MG Tablet PO (10:02)
[2023-05-20] MEDS: Metoprolol(XL)Succ 25 MG Tablet PO (10:02)
[2023-05-20] MEDS: Docusate Sodium 100 MG Capsule 200 MG PO (10:02)
[2023-05-20] MEDS: Pantoprazole Sodium 20 MG Tablet PO (10:03)
[2023-05-20] MEDS: FLUoxetine 20 MG Capsule 60 MG PO (10:03)
[2023-05-20] MEDS: Mirabegron 25 MG TAB.ER.24H PO (10:03)
[2023-05-20] MEDS: Ensure Surgery 237 ML LIQUID PO (10:10)
--- NOTE | 2023-05-20 10:11 | CASEMGMT ---
Discharge Planning Patient has been accepted by [facility] and precert to be started this morning. Patient and SW updated. Shruthi Saunders, Discharge Planning Asst.
[2023-05-20] MEDS: oxyCODONE 5 MG Tablet PO ×2 (11:01→17:48)
[2023-05-20] MEDS: Ipratropium/Albuterol Sulfate 3 ML AMPUL.NEB INHALATION ×2 (14:02→19:12)
--- NOTE | 2023-05-20 14:42 | CHAPLAIN ---
Type of Pastoral Visit ___ Initial Visit _x__ Follow-up Visit ___ On-call Visit ___ General Patient Visit ___ Spiritual Assessment ___ Family Conference ___ Bereavement ___ Rapid Response ___ Code Blue ___ Other (describe below) Pastoral Care Referral From _x__ Patient ___ Family ___ Nurse ___ Physician ___ Command Post Craftsman ___ Instructional Systems Designer ___ Other (describe below) Sacrament/Intervention _x__ Active listening ___ Anointing ___ Jew ___ Bereavement ___ Communion ___ Celestina exploration ___ ___ Life review _x__ Prayer ___ Reconciliation ___ Sacrament of Sick _x__ Supportive presence ___ Wedding ___ Other (describe below) Pastoral Comments patient reports on her surgery and having some improvements already; pt is not in obvious pain as she had been prior to surgery; pt expresses hope and gratitude and honors God with much of the credit through prayer; presence and prayer given to support patient; pt desires to return to bed so a COURT WORKER was called to assist
--- NOTE | 2023-05-20 15:16 | PCM.PN.ORT ---
Subjective Subjective Postop day 2 status post C3-5 ACDF for severe cervical myelopathy. Patient doing well. She was able to walk a longer distance with physical therapy today compared to yesterday. She still has numbness in her fingertips as residual symptoms. She denies any swallowing issues. She is waiting for insurance approval for rehab placement. Objective Data Objective Data Vital Signs: Vital Signs Temp Pulse Resp BP Pulse Ox O2 Del Method O2 Flow Rate 98.0 F 80 18 133/84 H 94 Room Air 2 05/20/23 10:00 05/20/23 14:03 05/20/23 14:03 05/20/23 10:00 05/20/23 14:03 05/20/23 14:03 05/20/23 05:43 Oxygen Flow Rate (L/min) 2 Oxygen Delivery Method Room Air Weight: 167 lb 8.821 oz Body Mass Index (BMI) 25.4 Intake & Output: Intake and Output for Last 24 Hours 05/18/23 05/19/23 05/20/23 23:59 23:59 23:59 Intake Total 2696.67 / 2696.67 1762.75 / 1762.75 Output Total 1400 / 1400 3850 / 3850 1550 / 1550 Balance 1296.67 / 1296.67 -2087.25 / -2087.25 -1550 / -1550 Lab / Micro Data 05/20/23 04:55 05/20/23 04:55 Labs: Laboratory Results - last 24 hr 05/20/23 04:55: WBC 10.4, RBC 3.97 L, Hgb 11.7 L, Hct 35.9 L, MCV 90.4, MCH 29.5, MCHC 32.6, RDW Std Deviation 43.8, RDW Coeff of Sandeep 13.2, Plt Count 304, MPV 10.1, Immature Gran % (Auto) 0.600, Neut % (Auto) 81.2 H, Lymph % (Auto) 9.5 L, Pierce % (Auto) 8.6, Eos % (Auto) 0.0, Baso % (Auto) 0.1, Absolute Neuts (auto) 8.5 H, Absolute Lymphs (auto) 0.99, Nucleated RBC % 0, Sodium 141, Potassium 4.4, Chloride 107, Carbon Dioxide 30.0, Anion Gap 4 L, BUN 27 H, Creatinine 0.57, Estim Creat Clear Calc 112.49, Est GFR (MDRD) Af Amer 141, Est GFR (MDRD) Non-Af 117, BUN/Creatinine Ratio 47.3 H, Glucose 159 H, Calcium 8.0 L Physical Exam Narrative Dressings?CDI. Neurologic exam?stable as preop. Assessment & Plan Assessment/Plan (1) S/P cervical spinal fusion: PLAN: Plan Continue PT OT mobilization. Okay to taper and discontinue steroids. Discharge to rehab as appropriate. Follow-up with me in clinic in 2 weeks. Collar on at all times until then. Okay to remove Tegaderm and gauze in 5 to 7 days and replace with Band-Aid every day after.
--- NOTE | 2023-05-20 16:11 | TREXTCAR_ITS ---
Diet Diet Order/Speech Therapy: 05/19/23 03:32 Diet: Regular - General Is pt able to select menu?: Yes Diet Comments: clear liquid until post op day 1 Routine Orders/Code Status Suppository Type: Dulcolax 10mg Suppository Frequency: Daily PRN O2 Liters per Minute: 2 O2 Frequency: Continuous Code Status: Full Code Wound(s) bue: Wound Type: scabs rt thigh: Wound Type: Burn NECK: Wound Type: Surgical Incision Therapies Physical Therapy: Eval and Treat Occupational Therapy: Eval and Treat Problem/Diagnosis (1) S/P cervical spinal fusion: Status: Acute Code(s): Z98.1 - Arthrodesis status Plan # Chronic low back pain/lumbar spondylosis/neck pain and arm weakness with cervical spondylosis and degenerative disc disease with severe central and bilateral foraminal stenosis at C3-5 with myelopathic cord signal #Falls/imbalance #Chronic pain management #Hypokalemia #Hypothyroidism #Psychiatric disorder NOS #Hypertension #GERD #COPD #Constipation 53 female history of COPD, anxiety and depression, hypertension, hypothyroidism presented to [facility] 05/15/2023 after a fall. Has chronic back and neck pain but reported that she is unable to bear weight on legs due to pain and that she has numbness and weakness in her bilateral upper extremities. She is evaluated by orthospine and MRI cervical spine recommended. MRI cervical spine showed cervical spondylosis and degenerative disc disease with severe central and bilateral foraminal stenosis at C3-5 with myelopathic cord signal at those 2 levels. She was taken to the OR 05/18 for C3-5 ACDF and she tolerated this well. Patient required [facility] placement at discharge to help with functional improvement and she was discharged in stable condition Allergies/Procedures Done in Hospital Allergies fentanyl Allergy (Verified 05/15/23 09:39) Anaphylaxis varenicline [From Chantix] Adverse Reaction (Verified 05/15/23 09:39) hallucinations Type of Care/Length of Stay Estimated LOS: Convalescent Care Less Than 30 days Type of Care Needed: Skilled Rehab Potential: Fair Prognosis: Fair Additional Orders/Day of Discharge Day of Discharge: 05/20/23 Discharge Plan Admission Admit Date/Time: 05/17/23 11:22 Primary Reason for Your Visit: Back pain and arm weakness/numbness Attending Provider: Virginia Araujo Primary Care Provider: Memo Chairez Consulting Providers: Esther Jackson Instructions Patient Instructions: ED Fall Prevention Additional Instructions / Restrictions: DISCHARGE INSTRUCTIONS PLEASE READ *Please take this with you to your next doctors appointment* -Your collar needs to stay on at all times -You will be discharged on a taper of decadron -You will need to follow-up in [address] Chance in the office -It will be important to be out of bed to chair multiple times per day -You were restarted back on Prozac in the hospital and have done well on this so you will be discharged on this as well -Your metoprolol was decreased to 25 mg daily due to your blood pressure and heart rate -Continue your other home medications -Please call your primary care provider's office upon discharge to schedule a hospital follow up within 1 week. -For any concerning signs or symptoms please call 911 or proceed to the nearest emergency department Discharge Orders/Prescriptions Prescriptions: No Action omeprazole 20 mg capsule,delayed release(DR/EC) 20 mg PO DAILY thiamine HCl (vitamin B1) 50 mg tablet 50 mg PO DAILY cyanocobalamin (vitamin B-12) [Vitamin B-12] 1,000 mcg tablet 1,000 mcg PO DAILY fluticasone furoate-vilanterol [Breo Ellipta] 200-25 mcg/dose blister with device 1 inh inhalation Myrbetriq 25 mg tablet extended release 24 hr 25 mg PO DAILY trazodone 150 mg tablet 150 mg PO QHS olanzapine 10 mg tablet 10 mg PO DAILY oxybutynin chloride 10 mg tablet extended release 24hr 10 mg PO DAILY bupropion HCl [Wellbutrin SR] 150 mg Tablet Sustained-Release 12 Hr 300 mg PO DAILY levothyroxine 25 mcg Tablet 25 mcg PO DAILY ferrous sulfate 325 mg (65 mg iron) Tablet 325 mg PO BID Spiriva Respimat 2.5 mcg/actuation Mist 2 puff INHALATION DAILY pregabalin [Lyrica] 150 mg capsule 150 mg PO TID atorvastatin 40 mg tablet 40 mg PO QHS cholecalciferol (vitamin D3) [Vitamin D3] 25 mcg (1,000 unit) Capsule 25 mcg PO DAILY albuterol sulfate 2.5 mg /3 mL (0.083 %) solution for nebulization 2.5 mg inhalation Q6H PRN PRN (Reason: Shortness Of Breath Or Wheezing) albuterol sulfate [Ventolin HFA] 90 mcg/actuation HFA aerosol inhaler 1 puff INHALATION Q4H PRN PRN (Reason: Shortness Of Breath Or Wheezing) baclofen 10 mg Tablet 5 mg PO BID Qty: 30 0RF amlodipine 10 mg tablet 10 mg PO DAILY Qty: 30 0RF ondansetron 4 mg tablet,disintegrating 4 mg PO Q8H PRN PRN (Reason: Nausea) Qty: 20 0RF metoprolol succinate 50 mg tablet extended release 24 hr 50 mg PO DAILY Referrals / Follow Up: Kendall Skinner MD [Med Staff - Active Staff] - Within 2 Weeks Memo Chairez MD [Primary Care Provider] - Within 1 Week Disposition Disposition (needs filled in before D/C Order can be placed): [facility]
--- NOTE | 2023-05-20 16:16 | PN.HOSP_ITS ---
Reason for Visit Reason for Visit: Diagnoses Disease of spinal cord, unspecified (05/17/23) Other intervertebral disc degeneration, lumbar region (05/17/23) Radiculopathy, lumbosacral region (05/17/23) Arthrodesis status (05/17/23) Subjective Subjective Patient slowly feeling better, getting stronger and working with therapy Objective Data Objective Data Vital Signs: Vital Signs Temp Pulse Resp BP Pulse Ox O2 Del Method O2 Flow Rate 98.4 F 80 18 137/86 H 94 Room Air 2 05/20/23 14:00 05/20/23 14:03 05/20/23 14:03 05/20/23 14:00 05/20/23 14:03 05/20/23 14:03 05/20/23 05:43 Oxygen Flow Rate (L/min) 2 Oxygen Delivery Method Room Air Weight: 76 kg Body Mass Index (BMI) 25.4 Intake & Output: Intake and Output for Last 24 Hours 05/18/23 05/19/23 05/20/23 23:59 23:59 23:59 Intake Total 2696.67 / 2696.67 1762.75 / 1762.75 Output Total 1400 / 1400 3850 / 3850 1999 Balance 1296.67 / 1296.67 -208.25 / -2086.25 -1999 Lab / Micro Data 05/20/23 04:55 05/20/23 04:55 Labs: Laboratory Results - last 24 hr 05/20/23 04:55: WBC 10.4, RBC 3.97 L, Hgb 11.7 L, Hct 35.9 L, MCV 90.4, MCH 29.5, MCHC 32.6, RDW Std Deviation 43.8, RDW Coeff of Sandeep 13.2, Plt Count 304, MPV 10.1, Immature Gran % (Auto) 0.600, Neut % (Auto) 81.2 H, Lymph % (Auto) 9.5 L, [place] % (Auto) 8.6, Eos % (Auto) 0.0, Baso % (Auto) 0.1, Absolute Neuts (auto) 8.5 H, Absolute Lymphs (auto) 0.99, Nucleated RBC % 0, Sodium 141, Potassium 4.4, Chloride 107, Carbon Dioxide 30.0, Anion Gap 4 L, BUN 27 H, Creatinine 0.57, Estim Creat Clear Calc 112.49, Est GFR (MDRD) Af Amer 141, Est GFR (MDRD) Non-Af 117, BUN/Creatinine Ratio 47.3 H, Glucose 159 H, Calcium 8.0 L Physical Exam Narrative General: Alert, oriented, no apparent distress HEENT: Atraumatic, normocephalic Eyes: Anicteric, normal conjunctiva, extraocular movements grossly intact Neck: Collar in place Respiratory: Clear to auscultation bilaterally, normal respiratory effort Cardiovascular: Regular rate GI: Soft, nontender, nondistended Extremities: No edema Musculoskeletal: Moving all extremities, strength improving in bilateral hands Neuro: Strength in hands improving Skin: No rashes appreciated Psych: Cooperative Assessment & Plan Assessment/Plan (1) Lumbosacral radiculopathy at S1: PLAN: Plan # Chronic low back pain/lumbar spondylosis/neck pain and arm weakness with cervical spondylosis and degenerative disc disease with severe central and bilateral foraminal stenosis at C3-5 with myelopathic cord signal -with fall at home -this is secondary to degenerative spine disease, lumbar spondylosis. Prior MRI done in October did not show any significant spinal canal stenosis, no surgical intervention was indicated at that time. There has been a progressive worsening of her pain, and imbalance -05/16: PT/OT, scheduled Tylenol, added additional as needed's, Dr. Chance with Ortho saw patient and requested urgent MRI of the cervical spine given her wea kness of her upper extremities and hyperreflexia, this has been ordered -05/17: MRI cervical spine showed cervical spondylosis and degenerative disc disease with severe central and bilateral foraminal stenosis at C3-5 with myelopathic cord signal at those 2 levels. Discussed yesterday evening with Ortho neuro and it was recommended patient be placed in cervical collar and started on steroids. Patient much more comfortable objectively after adjusting pain medications and starting steroids but still continues to have weakness and numbness/neuro symptoms. Patient may need surgery based on discussion with Ortho, continue present management and will await follow-up eval -05/18:Pt to go to OR today, it was requested the patient be medically cleared for urgent surgery. NSQIP risk calculator shows patient with a 12.3% risk of any complication with the average being 8.4 and her risk of serious complication 10.3% with average risk of 7.0% indicating patient is considered above average in regards to risk. She is presently medically optimized in regards to her chronic conditions, will continue present management perioperatively. -05/19: Patient status post C3-5 ACDF on 05/18 and tolerated this well. IV antibiotics for 24 hours, PT/OT, SCDs added for DVT prophylaxis, hold AC for 72 hours, soft diet -05/20: We will be tapering steroids, awaiting rehab placement, will need to follow-up in 2 weeks in the clinic with Dr. Skinner and collar at all times until then. Okay to remove Tegaderm and gauze in 5 to 7 days and replace with Band-Aid every day after. #Falls/imbalance: This is likely related to her lower extremity pain, there are no features of neuropathy at this time. Following the fall, no major injury to the head or spine noted. Physical therapy Occupational Therapy are consulted and will see the patient tomorrow. -05/16: PT/OT -05/18: We reevaluated after surgery -05/19: PT/OT, suspect patient may need placement -05/20: Patient awaiting insurance approval for placement #Chronic pain management: To tide over the acute worsening of her pain we would start oxycodone 5 mg as needed, continue home medications including the pregabalin. -05/16: Continue baclofen, Lyrica, scheduled Tylenol, as needed medication added/adjusted -05/17: Patient still reports significant pain however does appear more comfortable with steroids and pain medication adjustments -05/18: Continue perioperative pain management -05/20: Patient significantly improving #Hypokalemia: Corrected with IV KCl 20 mEq over 2 hours. -05/16: Replace #Hypothyroidism -Continue Synthroid #Psychiatric disorder NOS -Continue home medications #Hypertension -On amlodipine and metoprolol #GERD -Continue PPI #COPD -Continue home inhalers #Constipation: Given the ongoing opioid therapy, chronic back pain we will start her on MiraLAX to prevent any constipation. #DVT ppx: ROSIs Virginia Araujo MD Time spent in the patient's overall evaluation,decision-making process, review of diagnostic data, adjustment of management, discussion with other providers, nursing nursing and ancillary staff involved in patient's care documentation,36 Minutes Charges/Coding Visit Charges Inpatient E&M: 64350 Subs Hosp L2
[2023-05-20] MEDS: Budesonide Respules 0.5 MG/2 ML AMPUL.NEB. INHALATION (19:12)
[2023-05-20] MEDS: Atorvastatin Calcium 40 MG Tablet PO (21:32)
[2023-05-20] MEDS: Famotidine 20 MG Tablet PO (21:32)
[2023-05-20] MEDS: traZODone 100 MG Tablet 150 MG PO (21:32)
[2023-05-21] VITALS (9 sets, daily range): BP systolic 125–157; BP diastolic 73–106; PULSE 65–76; RESP 12–18; TEMP 36.3–36.6; O2SAT 94–96
[2023-05-21] MEDS: dexAMETHasone 4 MG/ML Vial IV ×3 (03:29→18:27)
[2023-05-21] MEDS: 0.9% Saline Lock 10 ML Syringe IV ×2 (03:30→18:27)
[2023-05-21] MEDS: Pregabalin 75 MG Capsule 150 MG PO ×3 (05:06→20:54)
[2023-05-21] MEDS: Acetaminophen 500 MG Tablet 1000 MG PO ×3 (05:06→20:54)
[2023-05-21] MEDS: Levothyroxine 25 MCG TABLET PO (05:07)
[2023-05-21] MEDS: Budesonide Respules 0.5 MG/2 ML AMPUL.NEB. INHALATION ×3 (06:51→20:23)
[2023-05-21] MEDS: Ferrous Sulfate 325 MG Tablet PO ×2 (08:24→17:17)
[2023-05-21] MEDS: oxyCODONE 5 MG Tablet PO ×2 (08:24→17:17)
[2023-05-21] MEDS: amLODIPine 10 MG Tablet PO (08:31)
[2023-05-21] MEDS: Metoprolol(XL)Succ 25 MG Tablet PO (08:31)
[2023-05-21 08:59] LABS: Absolute Lymphocyte Count 1.49 X10^3/uL (0.83-4.51); Absolute Neutrophil Count 8.5 X10^3/uL (2.0-7.7); Basophil# 0.04 X10^3/uL; Basophil% 0.4 % (0-1); Eosinophil# 0.01 X10^3/uL; Eosinophils% 0.1 % (0-5); Hemoglobin 11.4 g/dL (12.0-15.0); Lymphocyte # 1.49 X10^3/ul (0.83-4.51); Lymphocyte % 13.2 % (19-41); Mean Corp Hgb Conc 32.6 g/dL (32-36); Mean Corpuscular Hgb 28.9 pg (27.0-32.0); Mean Corpuscular Volume 88.6 fL (81-99); Mean Platelet Vol. 10.3 fl (6.2-12.0); Monocyte# 1.02 X10^3/uL; NRBC Flagged by Analyzer 0 % (0-5); Neutrophil # 8.49 X10^3/uL (2.7-7.7); Neutrophil % 75.3 % (47-70); Platelet Count 328 K/mm3 (150-450); RBC Distribution Width CV 13.1 % (11.6-14.6); RBC Distribution Width SD 42.8 fl (35.1-43.9); Red Blood Count 3.95 M/mm3 (4.2-5.4); White Blood Count 11.3 K/mm3 (4.4-11.0)
[2023-05-21 09:34] LABS: Anion Gap 2 (5-15); BUN 32 mg/dL (7-18); BUN/Creat Ratio 52.8 RATIO (10-20); Calcium,Total 8.2 mg/dL (8.5-10.1); Chloride 105 mmol/L (98-107); Creatinine, Serum 0.61 mg/dL (0.55-1.02); EST Glomerular Filtration Rate 109 mL/min (>60); Est Glom Filt Rate - Afr Amer 132 mL/min (>60); Estimated Creatinine Clearance 105.12 ml/min; Glucose 113 mg/dL (74-106); Potassium 4.5 mmol/L (3.5-5.1); Sodium Level 137 mmol/L (136-145)
--- NOTE | 2023-05-21 09:51 | PCM.PN.HOSP ---
Reason for Visit Reason for Visit: Diagnoses Disease of spinal cord, unspecified (05/17/23) Other intervertebral disc degeneration, lumbar region (05/17/23) Radiculopathy, lumbosacral region (05/17/23) Arthrodesis status (05/17/23) Subjective Subjective He had a little bit of pain this morning and awaiting her pain medication, overall doing much better Objective Data Objective Data Vital Signs: Vital Signs Temp Pulse Resp BP Pulse Ox O2 Del Method O2 Flow Rate 97.8 F 67 16 157/106 H 95 Room Air 2 05/21/23 08:20 05/21/23 08:31 05/21/23 08:20 05/21/23 08:31 05/21/23 08:20 05/21/23 08:20 05/20/23 05:43 Oxygen Flow Rate (L/min) 2 Oxygen Delivery Method Room Air Weight: 76 kg Body Mass Index (BMI) 25.4 Intake & Output: Intake and Output for Last 24 Hours 05/19/23 05/20/23 05/21/23 23:59 23:59 23:59 Intake Total 1762.75 / 1762.75 400 / 400 Output Total 3850 / 3850 2475 / 3375 1400 / 1400 Balance -2087.25 / -2087.25 -2475 / -3375 -1000 / -1000 Lab / Micro Data 05/21/23 08:20 05/21/23 08:20 Labs: Laboratory Results - last 24 hr 05/21/23 08:20: WBC 11.3 H, RBC 3.95 L, Hgb 11.4 L, Hct 35.0 L, MCV 88.6, MCH 28.9, MCHC 32.6, RDW Std Deviation 42.8, RDW Coeff of Sandeep 13.1, Plt Count 328, MPV 10.3, Immature Gran % (Auto) 2.000 H, Neut % (Auto) 75.3 H, Lymph % (Auto) 13.2 L, [place] % (Auto) 9.0, Eos % (Auto) 0.1, Baso % (Auto) 0.4, Absolute Neuts (auto) 8.5 H, Absolute Lymphs (auto) 1.49, Nucleated RBC % 0, Sodium 137, Potassium 4.5, Chloride 105, Carbon Dioxide 30.0, Anion Gap 2 L, BUN 32 H, Creatinine 0.61, Estim Creat Clear Calc 105.12, Est GFR (MDRD) Af Amer 132, Est GFR (MDRD) Non-Af 109, BUN/Creatinine Ratio 52.8 H, Glucose 113 H, Calcium 8.2 L Physical Exam Narrative General: Alert, oriented, no apparent distress HEENT: Atraumatic, normocephalic Eyes: Anicteric, normal conjunctiva, extraocular movements grossly intact Neck: Collar in place Respiratory: Clear to auscultation bilaterally, normal respiratory effort Cardiovascular: Regular rate GI: Soft, nontender, nondistended Extremities: No edema Musculoskeletal: Moving all extremities Neuro: Strength in hands improving Skin: No rashes appreciated Psych: Cooperative Assessment & Plan Assessment/Plan (1) Lumbosacral radiculopathy at S1: PLAN: Plan # Chronic low back pain/lumbar spondylosis/neck pain and arm weakness with cervical spondylosis and degenerative disc disease with severe central and bilateral foraminal stenosis at C3-5 with myelopathic cord signal -with fall at home -this is secondary to degenerative spine disease, lumbar spondylosis. Prior MRI done in October did not show any significant spinal canal stenosis, no surgical intervention was indicated at that time. There has been a progressive worsening of her pain, and imbalance -05/16: PT/OT, scheduled Tylenol, added additional as needed's, Dr. Chance with Ortho saw patient and requested urgent MRI of the cervical spine given her weakness of her upper extremities and hyperreflexia, this has been ordered -05/17: MRI cervical spine showed cervical spondylosis and degenerative disc disease with severe central and bilateral foraminal stenosis at C3-5 with myelopathic cord signal at those 2 levels. Discussed yesterday evening with Ortho neuro and it was recommended patient be placed in cervical collar and started on steroids. Patient much more comfortable objectively after adjusting pain medications and starting steroids but still continues to have weakness and numbness/neuro symptoms. Patient may need surgery based on discussion with Ortho, continue present management and will await follow-up eval -05/18:Pt to go to OR today, it was requested the patient be medically cleared for urgent surgery. NSQIP risk calculator shows patient with a 12.3% risk of any complication with the average being 8.4 and her risk of serious complication 10.3% with average risk of 7.0% indicating patient is considered above average in regards to risk. She is presently medically optimized in regards to her chronic conditions, will continue present management perioperatively. -05/19: Patient status post C3-5 ACDF on 05/18 and tolerated this well. IV antibiotics for 24 hours, PT/OT, SCDs added for DVT prophylaxis, hold AC for 72 hours, soft diet -05/20: We will be tapering steroids, awaiting rehab placement, will need to follow-up in 2 weeks in the clinic with Dr. Skinner and mike at all times until then. Okay to remove Tegaderm and gauze in 5 to 7 days and replace with Band-Aid every day after. -05/21: Continue pain control, tapering steroids, awaiting placement #Falls/imbalance: This is likely related to her lower extremity pain, there are no features of neuropathy at this time. Following the fall, no major injury to the head or spine noted. Physical therapy Occupational Therapy are consulted and will see the patient tomorrow. -05/16: PT/OT -05/18: We reevaluated after surgery -05/19: PT/OT, suspect patient may need placement -05/20: Patient awaiting insurance approval for placement #Chronic pain management: To tide over the acute worsening of her pain we would start oxycodone 5 mg as needed, continue home medications including the pregabalin. -05/16: Continue baclofen, Lyrica, scheduled Tylenol, as needed medication added/adjusted -05/17: Patient still reports significant pain however does appear more comfortable with steroids and pain medication adjustments -05/18: Continue perioperative pain management -05/20: Patient significantly improving #Hypokalemia: Corrected with IV KCl 20 mEq over 2 hours. -05/16: Replace #Hypothyroidism -Continue Synthroid #Psychiatric disorder NOS -Continue home medications #Hypertension -On amlodipine and metoprolol #GERD -Continue PPI #COPD -Continue home inhalers #Constipation: Given the ongoing opioid therapy, chronic back pain we will start her on MiraLAX to prevent any constipation. #DVT ppx: SCDs, if patient still here tomorrow can resume Lovenox for DVT prophylaxis Virginia Araujo MD Time spent in the patient's overall evaluation,decision-making process, review of diagnostic data, adjustment of management, discussion with other providers, nursing nursing and ancillary staff involved in patient's care documentation,30 Minutes Charges/Coding Visit Charges Inpatient E&M: 99489 Subs Hosp L1
[2023-05-21] MEDS: Baclofen 10 MG Tablet 5 MG PO ×2 (11:05→20:53)
[2023-05-21] MEDS: Meloxicam 15 MG Tablet PO (11:06)
[2023-05-21] MEDS: Docusate Sodium 100 MG Capsule 200 MG PO ×2 (11:06→20:54)
[2023-05-21] MEDS: Cholecalciferol (VIT D3) 25 MCG TABLET (1,000 UNITS) PO (11:06)
[2023-05-21] MEDS: Tolterodine Tartrate 2 MG CAP.SA PO (11:06)
[2023-05-21] MEDS: OLANZapine 10 MG Tablet PO (11:06)
[2023-05-21] MEDS: Mirabegron 25 MG TAB.ER.24H PO (11:06)
[2023-05-21] MEDS: buPROPion (SR) 150 MG Tablet.SA PO (11:06)
[2023-05-21] MEDS: Pantoprazole Sodium 20 MG Tablet PO (11:06)
[2023-05-21] MEDS: FLUoxetine 20 MG Capsule 60 MG PO (11:06)
[2023-05-21] MEDS: Ipratropium/Albuterol Sulfate 3 ML AMPUL.NEB INHALATION (20:23)
[2023-05-21] MEDS: Famotidine 20 MG Tablet PO (20:53)
[2023-05-21] MEDS: traZODone 100 MG Tablet 150 MG PO (20:53)
[2023-05-21] MEDS: Atorvastatin Calcium 40 MG Tablet PO (20:54)
[2023-05-22] VITALS (8 sets, daily range): BP systolic 129–173; BP diastolic 82–99; PULSE 63–84; RESP 16–18; TEMP 36.3–36.8; O2SAT 94–97
[2023-05-22] MEDS: 0.9% Saline Lock 10 ML Syringe IV ×3 (02:51→18:09)
[2023-05-22] MEDS: dexAMETHasone 4 MG/ML Vial IV ×3 (02:51→18:09)
[2023-05-22] MEDS: Acetaminophen 500 MG Tablet 1000 MG PO ×3 (05:21→20:52)
[2023-05-22] MEDS: oxyCODONE 5 MG Tablet PO ×2 (05:21→17:10)
[2023-05-22] MEDS: Pregabalin 75 MG Capsule 150 MG PO ×3 (05:21→20:52)
[2023-05-22] MEDS: Levothyroxine 25 MCG TABLET PO (05:22)
[2023-05-22] MEDS: Budesonide Respules 0.5 MG/2 ML AMPUL.NEB. INHALATION ×2 (07:41→19:26)
[2023-05-22] MEDS: Ipratropium/Albuterol Sulfate 3 ML AMPUL.NEB INHALATION ×2 (07:41→19:26)
--- NOTE | 2023-05-22 07:49 | PN.HOSP_ITS ---
Reason for Visit Reason for Visit: Diagnoses Disease of spinal cord, unspecified (05/17/23) Other intervertebral disc degeneration, lumbar region (05/17/23) Radiculopathy, lumbosacral region (05/17/23) Arthrodesis status (05/17/23) Subjective Subjective Patient feeling well today, sitting up in chair, awaiting placement Objective Data Objective Data Vital Signs: Vital Signs Temp Pulse Resp BP Pulse Ox O2 Del Method O2 Flow Rate 97.9 F 68 16 135/93 H 94 Room Air 2 05/22/23 02:50 05/22/23 07:41 05/22/23 07:41 05/22/23 02:50 05/22/23 07:41 05/22/23 07:41 05/21/23 20:53 Oxygen Flow Rate (L/min) 2 Oxygen Delivery Method Room Air Weight: 76 kg Body Mass Index (BMI) 25.4 Intake & Output: Intake and Output for Last 24 Hours 05/20/23 05/21/23 05/22/23 23:59 23:59 23:59 Intake Total 400 / 400 Output Total 2475 / 3375 1400 / 1400 300 / 300 Balance -2475 / -3375 -1000 / -1000 -300 / -300 Lab / Micro Data 05/21/23 08:20 05/21/23 08:20 Labs: Laboratory Results - last 24 hr 05/21/23 08:20: WBC 11.3 H, RBC 3.95 L, Hgb 11.4 L, Hct 35.0 L, MCV 88.6, MCH 28.9, MCHC 32.6, RDW Std Deviation 42.8, RDW Coeff of Sandeep 13.1, Plt Count 328, MPV 10.3, Immature Gran % (Auto) 2.000 H, Neut % (Auto) 75.3 H, Lymph % (Auto) 13.2 L, [place] % (Auto) 9.0, Eos % (Auto) 0.1, Baso % (Auto) 0.4, Absolute Neuts (auto) 8.5 H, Absolute Lymphs (auto) 1.49, Nucleated RBC % 0, Sodium 137, Potassium 4.5, Chloride 105, Carbon Dioxide 30.0, Anion Gap 2 L, BUN 32 H, Creatinine 0.61, Estim Creat Clear Calc 105.12, Est GFR (MDRD) Af Amer 132, Est GFR (MDRD) Non-Af 109, BUN/Creatinine Ratio 52.8 H, Glucose 113 H, Calcium 8.2 L Physical Exam Narrative General: Alert, oriented, no apparent distress HEENT: Atraumatic, normocephalic Eyes: Anicteric, normal conjunctiva, extraocular movements grossly intact Neck: Collar in place Respiratory: Clear to auscultation bilaterally, normal respiratory effort Cardiovascular: Regular rate GI: Soft, nontender, nondistended Extremities: No edema Musculoskeletal: Moving all extremities Neuro: Strength in hands improving Skin: No rashes appreciated Psych: Cooperative Assessment & Plan Assessment/Plan (1) Lumbosacral radiculopathy at S1: PLAN: Plan # Chronic low back pain/lumbar spondylosis/neck pain and arm weakness with cervical spondylosis and degenerative disc disease with severe central and bilateral foraminal stenosis at C3-5 with myelopathic cord signal -with fall at home -this is secondary to degenerative spine disease, lumbar spondylosis. Prior MRI done in October did not show any significant spinal canal stenosis, no surgical intervention was indicated at that time. There has been a progressive worsening of her pain, and imbalance -05/16: PT/OT, scheduled Tylenol, added additional as needed's, Dr. Chance with Ortho saw patient and requested urgent MRI of the cervical spine given her weakness of her upper extremities and hyperreflexia, this has been ordered -05/17: MRI cervical spine showed cervical spondylosis and degenerative disc disease with severe central and bilateral foraminal stenosis at C3-5 with myelopathic cord signal at those 2 levels. Discussed yesterday evening with Ortho neuro and it was recommended patient be placed in cervical collar and started on steroids. Patient much more comfortable objectively after adjusting pain medications and starting steroids but still continues to have weakness and numbness/neuro symptoms. Patient may need surgery based on discussion with Ortho, continue present management and will await follow-up eval -05/18:Pt to go to OR today, it was requested the patient be medically cleared for urgent surgery. NSQIP risk calculator shows patient with a 12.3% risk of any complication with the average being 8.4 and her risk of serious complication 10.3% with average risk of 7.0% indicating patient is considered above average in regards to risk. She is presently medically optimized in regards to her chronic conditions, will continue present management perioperatively. -05/19: Patient status post C3-5 ACDF on 05/18 and tolerated this well. IV antibiotics for 24 hours, PT/OT, SCDs added for DVT prophylaxis, hold AC for 72 hours, soft diet -05/20: We will be tapering steroids, awaiting rehab placement, will need to follow-up in 2 weeks in the clinic with Dr. Skinner and collar at all times until then. Okay to remove Tegaderm and gauze in 5 to 7 days and replace with Band-Aid every day after. -05/21: Continue pain control, tapering steroids, awaiting placement -05/22: Patient initially on 4 mg every 6 of IV steroids, decrease to 4q8hr on 05/20 with plans to taper off over 7 to 10 days #Falls/imbalance: This is likely related to her lower extremity pain, there are no features of neuropathy at this time. Following the fall, no major injury to the head or spine noted. Physical therapy Occupational Therapy are consulted and will see the patient tomorrow. -05/16: PT/OT -05/18: We reevaluated after surgery -05/19: PT/OT, suspect patient may need placement -05/20: Patient awaiting insurance approval for placement -05/22: Continue pain control, awaiting insurance approval #Chronic pain management: To tide over the acute worsening of her pain we would start oxycodone 5 mg as needed, continue home medications including the pregabalin. -05/16: Continue baclofen, Lyrica, scheduled Tylenol, as needed medication added/adjusted -05/17: Patient still reports significant pain however does appear more comfortable with steroids and pain medication adjustments -05/18: Continue perioperative pain management -05/20: Patient significantly improving #Hypokalemia: Corrected with IV KCl 20 mEq over 2 hours. -05/16: Replace #Hypothyroidism -Continue Synthroid #Psychiatric disorder NOS -Continue home medications #Hypertension -On amlodipine and metoprolol #GERD -Continue PPI #COPD -Continue home inhalers #Constipation: Given the ongoing opioid therapy, chronic back pain we will start her on MiraLAX to prevent any constipation. #DVT ppx: SCDs, if patient still here tomorrow can resume Lovenox for DVT prophylaxis Virginia Araujo, MD Time spent in the patient's overall evaluation,decision-making process, review of diagnostic data, adjustment of management, discussion with other providers, nursing nursing and ancillary staff involved in patient's care documentation,35 Minutes Charges/Coding Visit Charges Inpatient E&M: 64614 Subs Hosp L2
[2023-05-22] MEDS: Cholecalciferol (VIT D3) 25 MCG TABLET (1,000 UNITS) PO (08:21)
[2023-05-22] MEDS: OLANZapine 10 MG Tablet PO (08:21)
[2023-05-22] MEDS: Metoprolol(XL)Succ 25 MG Tablet PO (08:22)
[2023-05-22] MEDS: Baclofen 10 MG Tablet 5 MG PO ×2 (08:22→20:51)
[2023-05-22] MEDS: Mirabegron 25 MG TAB.ER.24H PO (08:22)
[2023-05-22] MEDS: Tolterodine Tartrate 2 MG CAP.SA PO (08:22)
[2023-05-22] MEDS: Ferrous Sulfate 325 MG Tablet PO ×2 (08:22→17:10)
[2023-05-22] MEDS: amLODIPine 10 MG Tablet PO (08:22)
[2023-05-22] MEDS: FLUoxetine 20 MG Capsule 60 MG PO (08:22)
[2023-05-22] MEDS: Docusate Sodium 100 MG Capsule 200 MG PO ×2 (08:22→20:50)
[2023-05-22] MEDS: Pantoprazole Sodium 20 MG Tablet PO (08:22)
[2023-05-22] MEDS: buPROPion (SR) 150 MG Tablet.SA PO (08:22)
[2023-05-22] MEDS: Meloxicam 15 MG Tablet PO (08:22)
[2023-05-22] MEDS: Atorvastatin Calcium 40 MG Tablet PO (20:50)
[2023-05-22] MEDS: Famotidine 20 MG Tablet PO (20:50)
[2023-05-22] MEDS: traZODone 100 MG Tablet 150 MG PO (20:52)
[2023-05-23] VITALS (7 sets, daily range): BP systolic 104–147; BP diastolic 67–94; PULSE 65–81; RESP 16–18; TEMP 36.6–36.9; O2SAT 93–98
[2023-05-23] MEDS: dexAMETHasone 4 MG/ML Vial IV ×2 (02:41→12:39)
[2023-05-23] MEDS: 0.9% Saline Lock 10 ML Syringe IV ×2 (02:41→12:39)
[2023-05-23] MEDS: Acetaminophen 500 MG Tablet 1000 MG PO ×2 (05:40→14:16)
[2023-05-23] MEDS: Levothyroxine 25 MCG TABLET PO (05:41)
[2023-05-23] MEDS: Pregabalin 75 MG Capsule 150 MG PO ×2 (05:41→14:16)
[2023-05-23] MEDS: Ipratropium/Albuterol Sulfate 3 ML AMPUL.NEB INHALATION ×2 (07:15→14:04)
[2023-05-23] MEDS: Budesonide Respules 0.5 MG/2 ML AMPUL.NEB. INHALATION (07:15)
--- NOTE | 2023-05-23 08:05 | PCM.PN.HOSP ---
Reason for Visit Reason for Visit: Diagnoses Disease of spinal cord, unspecified (05/17/23) Other intervertebral disc degeneration, lumbar region (05/17/23) Radiculopathy, lumbosacral region (05/17/23) Arthrodesis status (05/17/23) Subjective Subjective Patient is a 53-year-old lady admitted with neck pain as well as bilateral arm with chronic weakness found to have cord compression and cervical area underwent C3-5 anterior cervical discectomy and fusion with plate instrumentation by Dr. Kendall Skinner on 05/18/2023 Objective Data Objective Data Vital Signs: Vital Signs Temp Pulse Resp BP Pulse Ox O2 Del Method O2 Flow Rate 97.8 F 74 18 145/90 H 93 Room Air 2 05/23/23 02:45 05/23/23 07:16 05/23/23 07:16 05/23/23 02:45 05/23/23 07:16 05/23/23 07:16 05/23/23 02:45 Oxygen Flow Rate (L/min) 2 Oxygen Delivery Method Room Air Weight: 76 kg Body Mass Index (BMI) 25.4 Intake & Output: Intake and Output for Last 24 Hours 05/21/23 05/22/23 05/23/23 23:59 23:59 23:59 Intake Total 400 / 400 400 / 400 Output Total 1400 / 1400 300 / 300 Balance -1000 / -1000 -300 / 0 400 / 400 Lab / Micro Data 05/21/23 08:20 05/21/23 08:20 Physical Exam Narrative GENERAL: cooperative HEENT: Neck immobilized EYES; Anicteric, Normal Conjunctiva NECK; supple, normal thyroid, RESPIRATORY: Diminished to auscultation CARDIOVASCULAR: Regular S1 S2, GI: soft, normoactive bowel sounds, : No Renal angle tenderness; EXTREMITIES: No edema, no clubbing, MUSCULOSKELETAL: no muscle wasting NEURO: Awake; no lateralizing signs. SKIN: No Rash PSYCH; Flat affect Assessment & Plan Assessment/Plan (1) Lumbosacral radiculopathy at S1: PLAN: Plan Patient is a 53-year-old lady admitted with neck pain as well as bilateral arm with chronic weakness found to have cord compression and cervical area underwent C3-5 anterior cervical discectomy and fusion with plate instrumentation by Dr. Kendall Skinner on 05/18/2023 1. C3-5 spondylolisthesis with stenosis, cord compression, cord signal changes ? Status post C3-5 anterior cervical discectomy and fusion with plate instrumentation by Dr. Kendall Skinner on 05/18/2023 2. Physical deconditioning secondary to above - Requested for PT OT eval and social studies teacher to assist with discharge planning 3. Chronic pain ? Continued with current pain regimen 4. Hypokalemia -Corrected per protocol 5. Hypothyroidism - Patient is on levothyroxine home dose continued 6. Hypertension - Blood pressure controlled, home medications continued with dose adjustment as needed 7. GERD ? On PPI 8. Psychiatric disorder NOS -Continue home psychotropic medications 9. COPD ? Bronchodilator treatment as needed 10. Constipation ? Secondary to opioid use bowel regimen initiated 11. Tobacco dependence - Counseled on cessation, offered nicotine patch for tobacco cravings 12. DVT prophylaxis ? Bilateral SCDs for now Time spent in the patient's overall evaluation,decision-making process, review of diagnostic data, adjustment of management, discussion with other providers, nursing nursing and ancillary staff involved in patient's care documentation,35 Minutes Charges/Coding Visit Charges Inpatient E&M: 48265 Subs Hosp L2
[2023-05-23] MEDS: FLUoxetine 20 MG Capsule 60 MG PO (08:48)
[2023-05-23] MEDS: amLODIPine 10 MG Tablet PO (08:48)
[2023-05-23] MEDS: Baclofen 10 MG Tablet 5 MG PO (08:49)
[2023-05-23] MEDS: Meloxicam 15 MG Tablet PO (08:49)
[2023-05-23] MEDS: Pantoprazole Sodium 20 MG Tablet PO (08:49)
[2023-05-23] MEDS: buPROPion (SR) 150 MG Tablet.SA PO (08:49)
[2023-05-23] MEDS: Tolterodine Tartrate 2 MG CAP.SA PO (08:50)
[2023-05-23] MEDS: OLANZapine 10 MG Tablet PO (08:50)
[2023-05-23] MEDS: Metoprolol(XL)Succ 25 MG Tablet PO (08:50)
[2023-05-23] MEDS: Cholecalciferol (VIT D3) 25 MCG TABLET (1,000 UNITS) PO (08:51)
[2023-05-23] MEDS: Ferrous Sulfate 325 MG Tablet PO (08:52)
[2023-05-23] MEDS: oxyCODONE 5 MG Tablet PO ×2 (08:57→14:16)
[2023-05-23] MEDS: Mirabegron 25 MG TAB.ER.24H PO (12:49)
--- NOTE | 2023-05-23 13:00 | CASEMGMT ---
Discharge Planning [facility] for patient. SW updated. Shruthi Saunders, Discharge Planning Asst.
--- NOTE | 2023-05-23 15:51 | PCM.TXEXTCAR ---
Diet Diet Order/Speech Therapy: 05/19/23 03:32 Diet: Regular - General Is pt able to select menu?: Yes Diet Comments: clear liquid until post op day 1 Routine Orders/Code Status Suppository Type: Dulcolax 10mg Suppository Frequency: Daily PRN O2 Frequency: Continuous Code Status: Full Code Wound(s) bue: Wound Type: scabs rt thigh: Wound Type: Burn NECK: Wound Type: Surgical Incision Therapies Physical Therapy: Eval and Treat Occupational Therapy: Eval and Treat Problem/Diagnosis (1) Lumbosacral radiculopathy at S1: Status: Acute Code(s): M54.17 - Radiculopathy, lumbosacral region Plan Patient is a 53-year-old lady admitted with neck pain as well as bilateral arm with chronic weakness found to have cord compression and cervical area underwent C3-5 anterior cervical discectomy and fusion with plate instrumentation by Dr. Kendall Skinner on 05/18/2023 1. C3-5 spondylolisthesis with stenosis, cord compression, cord signal changes ? Status post C3-5 anterior cervical discectomy and fusion with plate instrumentation by Dr. Kendall Skinner on 05/18/2023 2. Physical deconditioning secondary to above - Requested for PT OT eval and social services director to assist with discharge planning 3. Chronic pain ? Continued with current pain regimen 4. Hypokalemia -Corrected per protocol 5. Hypothyroidism - Patient is on levothyroxine home dose continued 6. Hypertension - Blood pressure controlled, home medications continued with dose adjustment as needed 7. GERD ? On PPI 8. Psychiatric disorder NOS -Continue home psychotropic medications 9. COPD ? Bronchodilator treatment as needed 10. Constipation ? Secondary to opioid use bowel regimen initiated 11. Tobacco dependence - Counseled on cessation, offered nicotine patch for tobacco cravings 12. DVT prophylaxis ? Bilateral SCDs for now Time spent in the patient's overall evaluation,decision-making process, review of diagnostic data, adjustment of management, discussion with other providers, nursing nursing and ancillary staff involved in patient's care documentation,35 Minutes Allergies/Procedures Done in Hospital Allergies fentanyl Allergy (Verified 05/15/23 09:39) Anaphylaxis varenicline [From Chantix] Adverse Reaction (Verified 05/15/23 09:39) hallucinations Type of Care/Length of Stay Estimated LOS: Convalescent Care Less Than 30 days Type of Care Needed: Skilled Rehab Potential: Fair Prognosis: Fair Additional Orders/Day of Discharge Day of Discharge: 05/23/23 Discharge Plan Admission Admit Date/Time: 05/17/23 11:22 Primary Reason for Your Visit: Back pain and arm weakness/numbness Attending Provider: Terrence Avila Primary Care Provider: Memo Chairez Consulting Providers: Esther Jackson; Virginia Araujo Instructions Patient Instructions: ED Fall Prevention Additional Instructions / Restrictions: DISCHARGE INSTRUCTIONS PLEASE READ *Please take this with you to your next doctors appointment* -Your collar needs to stay on at all times -You will be discharged on a taper of decadron -You will need to follow-up in [address] Chance in the office -It will be important to be out of bed to chair multiple times per day -You were restarted back on Prozac in the hospital and have done well on this so you will be discharged on this as well -Your metoprolol was decreased to 25 mg daily due to your blood pressure and heart rate -Continue your other home medications -Please call your primary care provider's office upon discharge to schedule a hospital follow up within 1 week. -For any concerning signs or symptoms please call 911 or proceed to the nearest emergency department Discharge Orders/Prescriptions Prescriptions: New acetaminophen 500 mg Tablet 1,000 mg PO Q8 Qty: 0 0RF docusate sodium 100 mg Capsule 200 mg PO BID Qty: 0 0RF budesonide 0.5 mg/2 mL Suspension For Nebulization 0.5 mg inhalation Q12H.RT Qty: 0 0RF Ensure Surgery 0.08-1.4 gram-kcal/mL Liquid 237 ml PO TIDCM Qty: 0 0RF meloxicam 15 mg Tablet 15 mg PO DAILY Qty: 0 0RF famotidine 20 mg Tablet 20 mg PO QHS Qty: 0 0RF lorazepam 0.5 mg Tablet 0.5 mg PO X1 PRN (Reason: Anxiety with MRI) Qty: 3 0RF oxycodone 5 mg Tablet 5 mg PO Q4H PRN PRN (Reason: Pain Score 6-10) 3 Days Qty: 14 0RF dexamethasone 6 mg tablet 6 mg PO DAILY Qty: 7 0RF Continued omeprazole 20 mg capsule,delayed release(DR/EC) 20 mg PO DAILY thiamine HCl (vitamin B1) 50 mg tablet 50 mg PO DAILY cyanocobalamin (vitamin B-12) [Vitamin B-12] 1,000 mcg tablet 1,000 mcg PO DAILY fluticasone furoate-vilanterol [Breo Ellipta] 200-25 mcg/dose blister with device 1 inh inhalation Myrbetriq 25 mg tablet extended release 24 hr 25 mg PO DAILY trazodone 150 mg tablet 150 mg PO QHS olanzapine 10 mg tablet 10 mg PO DAILY oxybutynin chloride 10 mg tablet extended release 24hr 10 mg PO DAILY bupropion HCl [Wellbutrin SR] 150 mg Tablet Sustained-Release 12 Hr 300 mg PO DAILY levothyroxine 25 mcg Tablet 25 mcg PO DAILY ferrous sulfate 325 mg (65 mg iron) Tablet 325 mg PO BID Spiriva Respimat 2.5 mcg/actuation Mist 2 puff INHALATION DAILY atorvastatin 40 mg tablet 40 mg PO QHS cholecalciferol (vitamin D3) [Vitamin D3] 25 mcg (1,000 unit) Capsule 25 mcg PO DAILY albuterol sulfate 2.5 mg /3 mL (0.083 %) solution for nebulization 2.5 mg inhalation Q6H PRN PRN (Reason: Shortness Of Breath Or Wheezing) albuterol sulfate [Ventolin HFA] 90 mcg/actuation HFA aerosol inhaler 1 puff INHALATION Q4H PRN PRN (Reason: Shortness Of Breath Or Wheezing) baclofen 10 mg Tablet 5 mg PO BID Qty: 30 0RF amlodipine 10 mg tablet 10 mg PO DAILY Qty: 30 0RF ondansetron 4 mg tablet,disintegrating 4 mg PO Q8H PRN PRN (Reason: Nausea) Qty: 20 0RF metoprolol succinate 50 mg tablet extended release 24 hr 50 mg PO DAILY pregabalin [Lyrica] 150 mg capsule 150 mg PO TID 3 Days Qty: 9 0RF Referrals / Follow Up: Kendall Skinner MD [Med Staff - Active Staff] - Within 2 Weeks Memo Chairez MD [Primary Care Provider] - Within 1 Week Disposition Disposition (needs filled in before D/C Order can be placed): Care Home Facility
--- NOTE | 2023-05-23 15:59 | PCM.DC.SUM ---
Providers Date of Admission: 05/17/23 Date of Discharge: 05/23/23 Primary Care Physician: Dr. Memo Chairez MD Consultations 05/15/23 16:02 Consult: Orthopedics Routine Consulting Provider: Esther Jackson Reason for Consult: Lumbar stenosis EMERGENT Consult: No MD Notified: Yes Date Notified: 05/15/23 Time Notified: 16:03 Method of Notification: Verbal Reason For Visit: ACUTE BACK PAIN Diagnosis Discharge Diagnosis (1) Lumbosacral radiculopathy at S1: Status: Acute Code(s): M54.17 - Radiculopathy, lumbosacral region Plan Patient is a 53-year-old lady admitted with neck pain as well as bilateral arm with chronic weakness found to have cord compression and cervical area underwent C3-5 anterior cervical discectomy and fusion with plate instrumentation by Dr. Kendall Skinner on 05/18/2023 1. C3-5 spondylolisthesis with stenosis, cord compression, cord signal changes ? Status post C3-5 anterior cervical discectomy and fusion with plate instrumentation by Dr. Kendall Skinner on 05/18/2023 2. Physical deconditioning secondary to above - Requested for PT OT eval and social science manager to assist with discharge planning 3. Chronic pain ? Continued with current pain regimen 4. Hypokalemia -Corrected per protocol 5. Hypothyroidism - Patient is on levothyroxine home dose continued 6. Hypertension - Blood pressure controlled, home medications continued with dose adjustment as needed 7. GERD ? On PPI 8. Psychiatric disorder NOS -Continue home psychotropic medications 9. COPD ? Bronchodilator treatment as needed 10. Constipation ? Secondary to opioid use bowel regimen initiated 11. Tobacco dependence - Counseled on cessation, offered nicotine patch for tobacco cravings 12. DVT prophylaxis ? Bilateral SCDs for now Time spent in the patient's overall evaluation,decision-making process, review of diagnostic data, adjustment of management, discussion with other providers, nursing nursing and ancillary staff involved in patient's care documentation,35 Minutes Medications at Discharge Home Medications bupropion HCl 150 mg tablet,12 hr sustained-release (Wellbutrin SR) 300 mg PO DAILY depression 04/30/21 ferrous sulfate 325 mg (65 mg iron) tablet 325 mg PO BID supplement 04/30/21 levothyroxine 25 mcg tablet 25 mcg PO DAILY hypothyroid 04/30/21 tiotropium bromide 2.5 mcg/actuation mist for inhalation (Spiriva Respimat) 2 puff inhalation DAILY COPD 04/30/21 albuterol sulfate 2.5 mg/3 mL (0.083 %) solution for nebulization 2.5 mg inhalation Q6H PRN PRN Shortness Of Breath Or Wheezing 10/12/21 albuterol sulfate 90 mcg/actuation aerosol inhaler (Ventolin HFA) 1 puff inhalation Q4H PRN PRN Shortness Of Breath Or Wheezing 10/12/21 cholecalciferol (vitamin D3) 25 mcg (1,000 unit) capsule (Vitamin D3) 25 mcg PO DAILY vitamin 10/12/21 atorvastatin 40 mg tablet 40 mg PO QHS cholesterol 02/03/22 omeprazole 20 mg capsule,delayed release 20 mg PO DAILY reflux 03/25/22 thiamine HCl (vitamin B1) 50 mg tablet 50 mg PO DAILY vitamin 03/25/22 baclofen 10 mg tablet 5 mg (1/2 x 10 mg) PO BID pain #30 tabs 05/06/22 cyanocobalamin (vitamin B-12) 1,000 mcg tablet (Vitamin B-12) 1,000 mcg PO DAILY supplement 07/27/22 fluticasone furoate 200 mcg-vilanterol 25 mcg/dose inhalation powder (Breo Ellipta) 1 inh inhalation 07/27/22 mirabegron 25 mg tablet,extended release 24 hr (Myrbetriq) 25 mg PO DAILY OVERACTIVE BLADDER 07/27/22 olanzapine 10 mg tablet 10 mg PO DAILY MOOD 10/28/22 oxybutynin chloride 10 mg tablet,extended release 24 hr 10 mg PO DAILY OVERACTIVE BLADDER 10/28/22 trazodone 150 mg tablet 150 mg PO QHS SLEEP 10/28/22 amlodipine 10 mg tablet 10 mg PO DAILY #30 tabs 12/29/22 ondansetron 4 mg disintegrating tablet 4 mg PO Q8H PRN PRN Nausea #20 tabs 02/21/23 metoprolol succinate 50 mg tablet,extended release 24 hr 50 mg PO DAILY 05/15/23 acetaminophen 500 mg tablet 1,000 mg (2 x 500 mg) PO Q8 #0 tabs 05/23/23 budesonide 0.5 mg/2 mL suspension for nebulization 0.5 mg (2 mL) inhalation Q12H.RT #0 mL 05/23/23 dexamethasone 6 mg tablet 6 mg PO DAILY #7 tabs 05/23/23 docusate sodium 100 mg capsule 200 mg (2 x 100 mg) PO BID #0 caps 05/23/23 famotidine 20 mg tablet 20 mg PO QHS #0 tabs 05/23/23 lorazepam 0.5 mg tablet 0.5 mg PO X1 PRN Anxiety with MRI #3 tabs 05/23/23 meloxicam 15 mg tablet 15 mg PO DAILY #0 tabs 05/23/23 nut.tx.comp. immune systm,reg 0.08 gram-1.4 kcal/mL oral liquid (Ensure Surgery) 237 ml PO TIDCM #0 mL 05/23/23 oxycodone 5 mg tablet 5 mg PO Q4H PRN PRN Pain Score 6-10 3 days #14 tabs 05/23/23 pregabalin 150 mg capsule (Lyrica) 150 mg PO TID pain 3 days #9 caps 05/23/23 Hospital Course Summary of Care Provided Minutes Spent on Discharge: 35 Physical Exam Narrative GENERAL: cooperative HEENT: Neck immobilized EYES; Anicteric, Normal Conjunctiva NECK; supple, normal thyroid, RESPIRATORY: Diminished to auscultation CARDIOVASCULAR: Regular S1 S2, GI: soft, normoactive bowel sounds, : No Renal angle tenderness; EXTREMITIES: No edema, no clubbing, MUSCULOSKELETAL: no muscle wasting NEURO: Awake; no lateralizing signs. SKIN: No Rash PSYCH; Flat affect Weight / BMI Weight Weight: 76 kg Body Mass Index (BMI) 25.4 ABG / Lab / Microbiology Data 05/21/23 08:20 05/21/23 08:20 D/C Instructions Discharge Diet: No restrictions Discharge Activity: Return to Normal Activity Call your doctor if you observe: Fever of 101 or Higher, Shortness of breath, Fainting spells and Chest pain Meaningful Use Info Meaningful Use Diagnoses (Choose all that apply): None applicable Discharge Plan Admission Admit Date/Time: 05/17/23 11:22 Primary Reason for Your Visit: Back pain and arm weakness/numbness Attending Provider: Terrence Avila Primary Care Provider: Memo Chairez Consulting Providers: Esther Jackson; Virginia Araujo Instructions Patient Instructions: ED Fall Prevention Additional Instructions / Restrictions: DISCHARGE INSTRUCTIONS PLEASE READ *Please take this with you to your next doctors appointment* -Your collar needs to stay on at all times -You will be discharged on a taper of decadron -You will need to follow-up in [address] Chance in the office -It will be important to be out of bed to chair multiple times per day -You were restarted back on Prozac in the hospital and have done well on this so you will be discharged on this as well -Your metoprolol was decreased to 25 mg daily due to your blood pressure and heart rate -Continue your other home medications -Please call your primary care provider's office upon discharge to schedule a hospital follow up within 1 week. -For any concerning signs or symptoms please call 911 or proceed to the nearest emergency department Discharge Orders/Prescriptions Prescriptions: New acetaminophen 500 mg Tablet 1,000 mg PO Q8 Qty: 0 0RF docusate sodium 100 mg Capsule 200 mg PO BID Qty: 0 0RF budesonide 0.5 mg/2 mL Suspension For Nebulization 0.5 mg inhalation Q12H.RT Qty: 0 0RF Ensure Surgery 0.08-1.4 gram-kcal/mL Liquid 237 ml PO TIDCM Qty: 0 0RF meloxicam 15 mg Tablet 15 mg PO DAILY Qty: 0 0RF famotidine 20 mg Tablet 20 mg PO QHS Qty: 0 0RF lorazepam 0.5 mg Tablet 0.5 mg PO X1 PRN (Reason: Anxiety with MRI) Qty: 3 0RF oxycodone 5 mg Tablet 5 mg PO Q4H PRN PRN (Reason: Pain Score 6-10) 3 Days Qty: 14 0RF dexamethasone 6 mg tablet 6 mg PO DAILY Qty: 7 0RF Continued omeprazole 20 mg capsule,delayed release(DR/EC) 20 mg PO DAILY thiamine HCl (vitamin B1) 50 mg tablet 50 mg PO DAILY cyanocobalamin (vitamin B-12) [Vitamin B-12] 1,000 mcg tablet 1,000 mcg PO DAILY fluticasone furoate-vilanterol [Breo Ellipta] 200-25 mcg/dose blister with device 1 inh inhalation Myrbetriq 25 mg tablet extended release 24 hr 25 mg PO DAILY trazodone 150 mg tablet 150 mg PO QHS olanzapine 10 mg tablet 10 mg PO DAILY oxybutynin chloride 10 mg tablet extended release 24hr 10 mg PO DAILY bupropion HCl [Wellbutrin SR] 150 mg Tablet Sustained-Release 12 Hr 300 mg PO DAILY levothyroxine 25 mcg Tablet 25 mcg PO DAILY ferrous sulfate 325 mg (65 mg iron) Tablet 325 mg PO BID Spiriva Respimat 2.5 mcg/actuation Mist 2 puff INHALATION DAILY atorvastatin 40 mg tablet 40 mg PO QHS cholecalciferol (vitamin D3) [Vitamin D3] 25 mcg (1,000 unit) Capsule 25 mcg PO DAILY albuterol sulfate 2.5 mg /3 mL (0.083 %) solution for nebulization 2.5 mg inhalation Q6H PRN PRN (Reason: Shortness Of Breath Or Wheezing) albuterol sulfate [Ventolin HFA] 90 mcg/actuation HFA aerosol inhaler 1 puff INHALATION Q4H PRN PRN (Reason: Shortness Of Breath Or Wheezing) baclofen 10 mg Tablet 5 mg PO BID Qty: 30 0RF amlodipine 10 mg tablet 10 mg PO DAILY Qty: 30 0RF ondansetron 4 mg tablet,disintegrating 4 mg PO Q8H PRN PRN (Reason: Nausea) Qty: 20 0RF metoprolol succinate 50 mg tablet extended release 24 hr 50 mg PO DAILY pregabalin [Lyrica] 150 mg capsule 150 mg PO TID 3 Days Qty: 9 0RF Referrals / Follow Up: Kendall Skinner MD [Med Staff - Active Staff] - Within 2 Weeks Memo Chairez MD [Primary Care Provider] - Within 1 Week Disposition Disposition (needs filled in before D/C Order can be placed): [facility] Charges/Coding Visit Charges Inpatient E&M: 56433 Disch Hosp >30min
--- NOTE | 2023-05-23 16:13 | PHA.DC.MR.R ---
Pharmacy [place] Med Reconciliation Pharmacy Service has performed discharge medication reconciliation for this patient. The patient's discharge medication list was reviewed for discrepancies and discrepancies were resolved. Medications at Discharge Home Medications bupropion HCl 150 mg tablet,12 hr sustained-release (Wellbutrin SR) 300 mg PO DAILY depression 04/30/21 ferrous sulfate 325 mg (65 mg iron) tablet 325 mg PO BID supplement 04/30/21 levothyroxine 25 mcg tablet 25 mcg PO DAILY hypothyroid 04/30/21 tiotropium bromide 2.5 mcg/actuation mist for inhalation (Spiriva Respimat) 2 puff inhalation DAILY COPD 04/30/21 albuterol sulfate 2.5 mg/3 mL (0.083 %) solution for nebulization 2.5 mg inhalation Q6H PRN PRN Shortness Of Breath Or Wheezing 10/12/21 albuterol sulfate 90 mcg/actuation aerosol inhaler (Ventolin HFA) 1 puff inhalation Q4H PRN PRN Shortness Of Breath Or Wheezing 10/12/21 cholecalciferol (vitamin D3) 25 mcg (1,000 unit) capsule (Vitamin D3) 25 mcg PO DAILY vitamin 10/12/21 atorvastatin 40 mg tablet 40 mg PO QHS cholesterol 02/03/22 omeprazole 20 mg capsule,delayed release 20 mg PO DAILY reflux 03/25/22 thiamine HCl (vitamin B1) 50 mg tablet 50 mg PO DAILY vitamin 03/25/22 baclofen 10 mg tablet 5 mg (1/2 x 10 mg) PO BID pain #30 tabs 05/06/22 cyanocobalamin (vitamin B-12) 1,000 mcg tablet (Vitamin B-12) 1,000 mcg PO DAILY supplement 07/27/22 fluticasone furoate 200 mcg-vilanterol 25 mcg/dose inhalation powder (Breo Ellipta) 1 inh inhalation 07/27/22 mirabegron 25 mg tablet,extended release 24 hr (Myrbetriq) 25 mg PO DAILY OVERACTIVE BLADDER 07/27/22 olanzapine 10 mg tablet 10 mg PO DAILY MOOD 10/28/22 oxybutynin chloride 10 mg tablet,extended release 24 hr 10 mg PO DAILY OVERACTIVE BLADDER 10/28/22 trazodone 150 mg tablet 150 mg PO QHS SLEEP 10/28/22 amlodipine 10 mg tablet 10 mg PO DAILY #30 tabs 12/29/22 ondansetron 4 mg disintegrating tablet 4 mg PO Q8H PRN PRN Nausea #20 tabs 02/21/23 metoprolol succinate 50 mg tablet,extended release 24 hr 50 mg PO DAILY 05/15/23 acetaminophen 500 mg tablet 1,000 mg (2 x 500 mg) PO Q8 #0 tabs 05/23/23 budesonide 0.5 mg/2 mL suspension for nebulization 0.5 mg (2 mL) inhalation Q12H.RT #0 mL 05/23/23 dexamethasone 6 mg tablet 6 mg PO DAILY #7 tabs 05/23/23 docusate sodium 100 mg capsule 200 mg (2 x 100 mg) PO BID #0 caps 05/23/23 famotidine 20 mg tablet 20 mg PO QHS #0 tabs 05/23/23 lorazepam 0.5 mg tablet 0.5 mg PO X1 PRN Anxiety with MRI #3 tabs 05/23/23 meloxicam 15 mg tablet 15 mg PO DAILY #0 tabs 05/23/23 nut.tx.comp. immune systm,reg 0.08 gram-1.4 kcal/mL oral liquid (Ensure Surgery) 237 ml PO TIDCM #0 mL 05/23/23 oxycodone 5 mg tablet 5 mg PO Q4H PRN PRN Pain Score 6-10 3 days #14 tabs 05/23/23 pregabalin 150 mg capsule (Lyrica) 150 mg PO TID pain 3 days #9 caps 05/23/23
--- NOTE | 2023-05-23 17:00 | CASEMGMT ---
Social Work - Discharge Note Received notice from Discharge Student Success Advisor that precert is back for patient to go to [facility]. Notified physician who will discharge the patient. 7000 Convalescent form was completed om .07.12, in preparation of a weekend discharge. Arranged [facility] Amb[facility] service to transport via [employer] [facility] at 1700 today. Updated patient to discharge. Patient agreeable to [facility]. Updated patient that [facility] case management referral had been done. Patient asked about dinner. This clinical writer spoke with product manager financial services who will call over to [facility] to see about patient getting dinner at [facility]. Updated patient's RN Bita to discharge timeframe. No other services requested or indicated. Plan: Discharged skilled level of care under [facility], on a 30 day or less convalescent stay. -LIZY Kam
== END 2023-05-23 17:09 | disposition skilled nursing facility (03) | DRG 321 ==
LOC: ED 13:26 → MS3 15:12
PROVIDERS: Internal Medicine; Orthopaedic Surgery Orthopaedic Surgery of the Spine; Admitting Provider Internal Medicine; Emergency Provider Student in an Organized Health Care Education/Training Program; PCP Family Medicine; Visit Provider Internal Medicine
PROC: 0RT30ZZ Resection of Cervical Vertebral Disc, Open Approach (ICD-10-PCS; CPT 22551; principal; 2023-05-18 12:00)
DX: M47.12 Other spondylosis with myelopathy, cervical region (principal); D64.9 Anemia, unspecified; J44.9 Chronic obstructive pulmonary disease, unspecified; I10 Essential (primary) hypertension; E03.9 Hypothyroidism, unspecified; M51.36 Other intervertebral disc degeneration, lumbar region; E78.00 Pure hypercholesterolemia, unspecified; F17.210 Nicotine dependence, cigarettes, uncomplicated; R26.2 Difficulty in walking, not elsewhere classified; M48.02 Spinal stenosis, cervical region; M47.27 Other spondylosis with radiculopathy, lumbosacral region; F12.90 Cannabis use, unspecified, uncomplicated; K21.9 Gastro-esophageal reflux disease without esophagitis; E87.6 Hypokalemia; M50.30 Other cervical disc degeneration, unspecified cervical region; M43.12 Spondylolisthesis, cervical region; K59.00 Constipation, unspecified; R53.81 Other malaise; R29.898 Other symptoms and signs involving the musculoskeletal system; Z79.51 Long term (current) use of inhaled steroids; G89.29 Other chronic pain; Z79.891 Long term (current) use of opiate analgesic; Z98.1 Arthrodesis status
CPT/HCPCS: 36415; 70450; 72040; 72100; 72125; 72141; 73502; 76000; 80048; 80053; 82248; 83735; 84100; 84443; 85025; 85610; 94640; 94668; 94762; 97110; 97116; 97162; 97166; 97530; 97535; 99252; 99285; C1713; J7030; J7120; A4216; G0463; J2405

== ENCOUNTER → 2023-05-24 | Outpatient (REF) | payer MEDICAID, SELFPAY ==
[2023-05-24 09:47] LABS: Hematocrit 37.6 % (37-47); Hemoglobin 11.9 g/dL (12.0-15.0); Mean Corp Hgb Conc 31.6 g/dL (32-36); Mean Corpuscular Hgb 28.7 pg (27.0-32.0); Mean Corpuscular Volume 90.8 fL (81-99); Mean Platelet Vol. 10.1 fl (6.2-12.0); POSITIVE COUNT YES; POSITIVE DIFFERENTIAL YES; POSITIVE MORPHOLOGY YES; Platelet Count 388 K/mm3 (150-450); RBC Distribution Width CV 13.4 % (11.6-14.6); RBC Distribution Width SD 44.8 fl (35.1-43.9); Red Blood Count 4.14 M/mm3 (4.2-5.4)
[2023-05-24 09:54] LABS: Differential Indicated MANUAL DIFF
[2023-05-24 10:04] LABS: Anion Gap 2 (5-15); BUN 30 mg/dL (7-18); BUN/Creat Ratio 52.6 RATIO (10-20); Calcium,Total 8.2 mg/dL (8.5-10.1); Chloride 106 mmol/L (98-107); Creatinine, Serum 0.57 mg/dL (0.55-1.02); EST Glomerular Filtration Rate 117 mL/min (>60); Est Glom Filt Rate - Afr Amer 142 mL/min (>60); Glucose 89 mg/dL (74-106); Potassium 4.4 mmol/L (3.5-5.1); Sodium Level 141 mmol/L (136-145)
[2023-05-24 10:05] LABS: Vitamin B12 886 pg/mL (211-911)
[2023-05-24 10:19] LABS: Eosinophil 2 % (0-5); Lymphocyte 29 % (19-41); Metamyelocyte 5 % (0-1); Monocyte 1 % (0-10); Neutrophil-Segmented 63 % (47-70); Platelet Estimate ADEQUATE (ADEQ); Red Cell Morphology NORM C+C NORMAL (NORM C&C); Total Cells Counted 100 (MANUAL DIFF)
[2023-05-24 13:36] LABS: Pathologist Review Reviewed
== END | disposition home or self-care (01) ==
LOC: OLS.SW 05:00
PROVIDERS: PCP Family Medicine; Visit Provider Internal Medicine
DX: Z02.2 Encounter for examination for admission to residential institution (principal)
CPT/HCPCS: 36415; 80048; 82306; 82607; 84443; 85025

== ENCOUNTER 2023-06-16 20:51 | Inpatient (IN) | payer MEDICAID, SELFPAY ==
[2023-06-16 20:52] VITALS: BP 104/92
[2023-06-16 20:53] VITALS: BP 87/67; PULSE 73; RESP 18; TEMP 36.1; O2SAT 98; BMI 29.7
--- NOTE | 2023-06-16 21:37 | CT_ITS ---
INDICATION: trauma EXAMINATION: CT BRAIN - CT Head or Brain W/O Contrast Injection TECHNIQUE: Multiple axial images were obtained of the head without intravenous contrast. A radiation dose optimization technique was used for this scan. IV Contrast dosage and agent: None. RADIATION DOSAGE (If Supplied By Facility): CTDIvol = ( 44.99 ) mGy, DLP = ( 1485.52 ) mGycm COMPARISON: CT head 05/15/2023 FINDINGS: BRAIN: No acute bleed. No edema. Jaramillo-white matter differentiation is maintained. VENTRICLES AND SULCI: Not dilated. EXTRA-AXIAL: No hemorrhage, fluid collection, or mass. CALVARIUM / SKULL BASE: Unremarkable. FACE/SINUSES: Mucosal thickening in the right maxillary sinus. SOFT TISSUES: Unremarkable. CT/Brain/Head without Contrast IMPRESSION: No acute abnormality. Electronically Signed: Nichol Resendiz MD at 0:18 EST ,
--- NOTE | 2023-06-16 21:37 | CT_ITS ---
We are attempting to reach an attending provider to discuss findings. An addendum with communication details will be sent when the communication is complete. INDICATION: trauma s/p c-spine surgery EXAMINATION: CT CERVICAL SPINE - CT Spine Cervical W/O Contrast Injection TECHNIQUE: Helically acquired images were obtained of the cervical spine. 2D reformatted images were reviewed. A radiation dose optimization technique was used for this scan. IV Contrast dosage and agent: None. RADIATION DOSAGE (If Supplied By Facility): CTDIvol = ( 27.39 ) mGy, DLP = ( 1485.52 ) mGycm COMPARISON: Cervical spine x-rays 06/01/2023, and CT cervical spine 05/15/2023. FINDINGS: Surgical hardware with anterior plate and screws and interbody devices from C3 to C5. There is approximately 5 mm separation of the anterior plate and the anterior margin of the vertebral body at the C3 level appears slightly increased compared to the prior x-rays, although difficult to compare. Subtle lucency at the tip of the 2 screws at this C3 level. No significant separation at the other levels C4 and C5 levels. Prior CT was prior to surgery. ALIGNMENT: 3 mm anterior subluxation C4 on C5, similar to the preoperative study. No other subluxation. Straightening of the normal curvature. MINERALIZATION: Normal. VERTEBRAL BODIES: No fracture or acute abnormality. DISC SPACES: Mild disc space narrowing with osteophytes C5-C7. POSTERIOR ELEMENTS: Mild facet arthropathy at several levels. SPINAL CANAL: Maintained. PARASPINAL SOFT TISSUES: Prevertebral soft tissue thickening C4-C7 with edema, possibly postsurgical, appears increased compared to the most recent x-ray although difficult to compare. OTHER: None. CT/Spine Cervical without Contras IMPRESSION: No evidence of fracture or traumatic subluxation. Postsurgical changes C3-C5 post anterior fusion, with slight increased separation of the hardware from the vertebral body at the C3 level. Mild prevertebral edema C4-C6 may be postsurgical edema, but appears slightly increased compared to prior x-rays. Electronically Signed: Nichol Resendiz MD at 0:36 EST ,
--- NOTE | 2023-06-16 21:40 | EX.ED.DYSGE1 ---
HPI History of Present Illness Chief Complaint: Weakness Detail of Chief Complaint: Complaining of generalized weakness. Recent neck surgery. Informant: patient Onset/Context/Timing Onset: Today Context: Gradual Onset Timing: Continuous Current Severity: Moderate Maximum Severity: Moderate Narrative Narrative: 53-year-old female month or so ago and cervical spine surgery for degenerative disc disease plate and screws in bone graft according to her. She was hospitalized for 1 to 2 weeks after the surgery. Then went to extended-care facility and now is home. Says she is so weak she is unable to stand. She denies nausea vomiting diarrhea. She denies fever or chills. She denies headache, chest pain or abdominal pain. No dysuria. Brought in by squad. Prior similar symptoms: No Recent Illness/Hospitalization: Yes [facility] Medical History Acute cholecystitis Acute hyponatremia Acute pancreatitis Alcohol abuse Alcohol withdrawal Ambulates with cane Anemia Anemia of unknown etiology Anxiety Arthritis Bipolar disorder Chronic pain COPD (chronic obstructive pulmonary disease) Depression Desire for detoxification Distal radius fracture, right Easy bruising Elevated LFTs Excessive bleeding Gastric reflux High cholesterol History of edema Hyperglycemia Hypertension Hypothyroidism Marijuana use Migraines On home oxygen therapy Osteoporosis Pulmonary embolism Pulmonary embolism Recurrent syncope Renal insufficiency Restless legs Shortness of breath on exertion Sleep apnea Smoker Transient hypotension Walker as ambulation aid Wears glasses Home Medications bupropion HCl 150 mg tablet,12 hr sustained-release (Wellbutrin SR) 300 mg PO DAILY depression 04/30/21 [History Last Taken 05/14/23 10:00 150 mg] ferrous sulfate 325 mg (65 mg iron) tablet 325 mg PO BID supplement 04/30/21 [History Last Taken 05/14/23 08:00 325 mg] levothyroxine 25 mcg tablet 25 mcg PO DAILY hypothyroid 04/30/21 [History Last Taken 04/30/21] tiotropium bromide 2.5 mcg/actuation mist for inhalation (Spiriva Respimat) 2 puff inhalation DAILY COPD 04/30/21 [History Last Taken 01/22/22] albuterol sulfate 2.5 mg/3 mL (0.083 %) solution for nebulization 2.5 mg inhalation Q6H PRN PRN Shortness Of Breath Or Wheezing 10/12/21 [History Last Taken 05/15/23 08:00 2.5 mg] albuterol sulfate 90 mcg/actuation aerosol inhaler (Ventolin HFA) 1 puff inhalation Q4H PRN PRN Shortness Of Breath Or Wheezing 10/12/21 [History Last Taken 05/14/23 10:00 1 puff] cholecalciferol (vitamin D3) 25 mcg (1,000 unit) capsule (Vitamin D3) 25 mcg PO DAILY vitamin 10/12/21 [History Last Taken 05/14/23 10:00 25 mcg] atorvastatin 40 mg tablet 40 mg PO QHS cholesterol 02/03/22 [History Last Taken 05/14/23 22:00 40 mg] omeprazole 20 mg capsule,delayed release 20 mg PO DAILY reflux 03/25/22 [History Last Taken 05/14/23 10:00 20 mg] thiamine HCl (vitamin B1) 50 mg tablet 50 mg PO DAILY vitamin 03/25/22 [History Last Taken 05/14/23 10:00 100 mg] baclofen 10 mg tablet 5 mg (1/2 x 10 mg) PO BID pain #30 tabs 05/06/22 [Rx Last Taken 04/30/21] cyanocobalamin (vitamin B-12) 1,000 mcg tablet (Vitamin B-12) 1,000 mcg PO DAILY supplement 07/27/22 [History Last Taken 05/14/23 08:00 1,000 mcg] fluticasone furoate 200 mcg-vilanterol 25 mcg/dose inhalation powder (Breo Ellipta) 1 inh inhalation 07/27/22 [History Last Taken Unknown] mirabegron 25 mg tablet,extended release 24 hr (Myrbetriq) 25 mg PO DAILY OVERACTIVE BLADDER 07/27/22 [History Last Taken 05/14/23 08:00 25 mg] olanzapine 10 mg tablet 10 mg PO DAILY MOOD 10/28/22 [History Last Taken 05/14/23 08:00 10 mg] oxybutynin chloride 10 mg tablet,extended release 24 hr 10 mg PO DAILY OVERACTIVE BLADDER 10/28/22 [History Last Taken 05/14/23 08:00 10 mg] trazodone 150 mg tablet 150 mg PO QHS SLEEP 10/28/22 [History Last Taken 05/14/23 22:00 150 mg] amlodipine 10 mg tablet 10 mg PO DAILY #30 tabs 12/29/22 [Rx Last Taken 05/15/23 08:00 10 mg] ondansetron 4 mg disintegrating tablet 4 mg PO Q8H PRN PRN Nausea #20 tabs 02/21/23 [Rx Last Taken Unknown] metoprolol succinate 50 mg tablet,extended release 24 hr 50 mg PO DAILY 05/15/23 [History Last Taken 05/14/23 10:00 50 mg] acetaminophen 500 mg tablet 1,000 mg (2 x 500 mg) PO Q8 #0 tabs 05/23/23 [Rx Last Taken Unknown] budesonide 0.5 mg/2 mL suspension for nebulization 0.5 mg (2 mL) inhalation Q12H.RT #0 mL 05/23/23 [Rx Last Taken Unknown] dexamethasone 6 mg tablet 6 mg PO DAILY #7 tabs 05/23/23 [Rx Last Taken Unknown] docusate sodium 100 mg capsule 200 mg (2 x 100 mg) PO BID #0 caps 05/23/23 [Rx Last Taken Unknown] famotidine 20 mg tablet 20 mg PO QHS #0 tabs 05/23/23 [Rx Last Taken Unknown] lorazepam 0.5 mg tablet 0.5 mg PO X1 PRN Anxiety with MRI #3 tabs 05/23/23 [Rx Last Taken Unknown] nut.tx.comp. immune systm,reg 0.08 gram-1.4 kcal/mL oral liquid (Ensure Surgery) 237 ml PO TIDCM #0 mL 05/23/23 [Rx Last Taken Unknown] oxycodone 5 mg tablet 5 mg PO Q4H PRN PRN Pain Score 6-10 3 days #14 tabs 05/23/23 [Rx Last Taken Unknown] pregabalin 150 mg capsule (Lyrica) 150 mg PO TID pain 3 days #9 caps 05/23/23 [Rx Last Taken Unknown] acetaminophen 650 mg tablet,extended release (Tylenol 8 Hour) 650 mg PO Q8H 20 days #60 tabs 06/02/23 [Rx Last Taken Unknown] meloxicam 15 mg tablet 15 mg PO DAILY pain 1 month #30 tabs 06/02/23 [Rx Last Taken Unknown] Allergy/AdvReac Type Severity Reaction Status Date / Time fentanyl Allergy Anaphylaxis Verified 06/16/23 20:52 varenicline [From Chantix] AdvReac hallucinati Verified 06/16/23 20:52 ons Family History Other Cancer Surgical History H/O skin graft H/O: hysterectomy Hx of cholecystectomy Hx of tonsillectomy Social History household members: none Smoking Status: Current every day smoker tobacco type: cigarettes alcohol intake: former substance use type: marijuana additional social history: disabled ROS ROS ED ROS Narrative Generalized weakness. Fall. Neck pain. Review of Systems ROS Unobtainable: Denies due to encephalopathy Constitutional Constitutional ED: Denies chills or fever(s) Eyes Eyes: Denies blurry vision ENT ENT ED: Denies ear pain Cardiovascular Cardiovascular: Denies chest pain Respiratory/Chest Respiratory/Chest: Denies cough or dyspnea Gastrointestinal Gastrointestinal: Denies abdominal pain, constipation, diarrhea, melena or nausea Genitourinary Genitourinary ED: Denies dysuria or hematuria Musculoskeletal Musculoskeletal: Reports neck pain; Denies arthralgias, back pain or myalgias Integumentary Denies abscess or Abrasions Neurologic Neurologic: Denies headache(s) Psychiatric Psychiatric: Denies anxiety or depression Endocrine Endocrinology: Denies cold intolerance Hematologic/Lymphatic Hematologic/Lymphatic: Reports none Allergic/Immunologic Allergic/Immunologic ED: Denies mouth swelling, tongue swelling or urticaria EXAM Physical Exam Narrative Exam Narrative: Middle-age female sitting upright in bed. Vital signs stable except blood pressure initially 80s over 67 repeated 104/92. Pulse ox 98% on room air hypoxia. Afebrile. Does not look septic or toxic. H EENT exam unremarkable. Mild dry mucous membranes. No trauma to her face or scalp nontender. No hematoma no laceration. Pupils are round and reactive to light. Extract motions are intact. Neck is in a c-collar. Trachea midline. Lungs clear to auscultation bilaterally. Heart regular rhythm rate about 70 no murmur. Chest wall and ribs nontender. Abdomen soft nontender. Pelvic girdle intact. She is moving all 4 extremities. 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 Dorsi plantarflexion intact again 4-5. It is somewhat questionable where she is giving maximal effort. Back the thoracic lumbar spine are nontender there is no signs of trauma. Neurologically she is awake and alert. Answering questions and following commands. She has generalized weakness but not local to either 1 side or 1 particular extremity. Const Vital Signs: 06/16/23 20:53 06/16/23 20:52 Temperature 96.9 F L Temperature Source Temporal Pulse Rate 73 Respiratory Rate 18 Blood Pressure 87/67 L 104/92 H Blood Pressure Mean 73 96 Pulse Ox 98 Oxygen Delivery Method Room Air Positive well nourished and well developed; Negative for cachectic, contractures or unkempt General Appearance ED: well developed and NAD; Negative for unkempt, cachectic, contractures, cyanotic, diaphoretic or pallor Nutritional Appearance: Negative for cachectic HEENT Reports dry mucous membranes Negative for trauma or tenderness Mouth ED: Yes dry mucous membranes Mouth: dry mucous membranes Eyes PERRL and EOMs intact bilaterally General Eye ED: Negative for pale conjunctiva or scleral icterus Neck no lymphadenopathy, supple and no JVD General: Negative for tenderness Lymph Lymphatic: Negative for other Chest Wall inspection of chest normal and palpation of chest normal Chest: Negative for other Resp normal respiratory effort and clear to auscultation bilaterally Effort and Inspection: Negative for retractions Auscultation: Negative for rales, rhonchi or wheezes Cardio regular rate, regular rhythm, S1 normal heart sound, S2 normal heart sound and no murmurs Palpation: Negative for palpable S3 Rate: Negative for bradycardia or tachycardic Rhythm: Negative for abnormal rhythm GI normal to inspection, nondistended, normoactive bowel sounds, non-tender, non-distended and no masses Inspection: Negative for abdominal distention Auscultation: normoactive bowel sounds Palpation: soft; Negative for tender, guarding, splenomegaly, mass or rebound tenderness present Back/Spine no CVA tenderness General Back: Negative for CVA tenderness Cervical Spine: Negative for cervical spine tenderness Thoracic Spine / Upper Back: Negative for thoracic spinal tenderness or paraspinal muscle tenderness Lumbar Spine / Lower Back: Negative for lumbar spinal tenderness Extremity normal to inspection General Extremety ED: Negative for edema or tenderness General Extremity: Negative for edema Neuro oriented x3 and CN's II-XII intact bilaterally Neuro Narrative: 4 out of 5 strength bilaterally. Limited effort. Sensorium / Orientation: alert; Negative for orientation impaired, lethargic or stuporous Motor Exam: general weakness and strength abnormal; Negative for strength 5/5 throughout Psych mental status grossly normal Appearance: Negative for unkempt Attitude: No agitated Mood & Affect: Negative for depressed, anxious or tearful Skin no rashes or lesions noted, no wounds and skin turgor normal General Skin Exam: elasticity normal; Negative for jaundice or pallor Lesions: No lesion noted Rashes: No rashes noted Trauma: Negative for abrasion Wounds: Negative for wounds noted MDM MDM MDM Narrative Medical decision making narrative: 53-year-old generalized weakness transient hypotension. Status post neck surgery a month ago. Fell today and was too weak to get up. She denies any fever or specific infectious symptoms. She was not knocked out. She denies any abdominal or chest pain. Repeat a.m. patient's blood pressures currently 114/70. They are obtaining urine via straight cath. We are waiting on the CT reads of her brain and neck. I will speak to the hospitalist about admission for generalized weakness. History & Record Review Discussion w/independent historian: Patient Additional record(s) reviewed:: Prior inpatient record, Prior outpatient record, Prior ED visit and Prior labs Lab Data Attestation: I reviewed the patient's lab results. Lab results narrative: CBC normal. White count of 7. H&H 12 and 40. Platelets 325. Chemistries show a gap of 6 BUN of 27 creatinine 1.1 consistent with mild dehydration. Glucose 103. Lactic acid is normal 1.5. Chest x-ray negative. No acute process. CT brain and CT C-spine awaiting official read. COVID, flu and RSV all negative. Labs: Laboratory Results - last 24 hr 06/16/23 06/16/23 22:10 22:20 WBC 7.2 RBC 4.38 Hgb 12.8 Hct 40.1 MCV 91.6 MCH 29.2 MCHC 31.9 L RDW Std Deviation 45.1 H RDW Coeff of Sandeep 13.3 Plt Count 325 MPV 9.7 Immature Gran % (Auto) 0.600 Neut % (Auto) 54.3 Lymph % (Auto) 21.6 [place] % (Auto) 13.0 H Eos % (Auto) 9.9 H Baso % (Auto) 0.6 Absolute Neuts (auto) 3.9 Absolute Lymphs (auto) 1.55 Nucleated RBC % 0 Sodium 138 Potassium 3.9 Chloride 104 Carbon Dioxide 28.0 Anion Gap 6 BUN 27 H Creatinine 1.14 H Estim Creat Clear Calc 56.25 Est GFR (MDRD) Af Amer 64 Est GFR (MDRD) Non-Af 53 L BUN/Creatinine Ratio 23.7 H Glucose 103 Lactic Acid 1.5 Calcium 9.3 Radiography Chest X-Ray - ED: 1 View, Read by ED Physician, Read by Radiologist, Normal, Heart, Lungs, Mediastinum, Bony Structures, No Acute Disease and Chronic Changes Diagnostic Testing: Clinical Impression(s) from Imaging Studies Brain CT 06/16/23 21:37 IMPRESSION: No acute abnormality. Electronically Signed: Nichol Resendiz MD at 0:18 EST , Chest X-Ray 06/16/23 21:55 IMPRESSION: No evidence of active intrathoracic disease. Electronically Signed: Nichol Resendiz MD at 22:08 EST , X-ray, portable, single view interpreted by myself and radiologist shows no acute abnormality. Normal cardiac silhouette. Normal lung coreas. No pneumonia. Discharge Plan Dx/Rx/DC Orders Clinical Impression: History of neck surgery, Transient hypotension, Generalized weakness, History of back surgery, Fall Disposition Disposition: [facility]
--- NOTE | 2023-06-16 21:55 | RAD_ITS ---
INDICATION: weakness EXAMINATION/TECHNIQUE: X-RAY - XR Chest 1 View AP portable. 9:49 PM COMPARISON: 02/21/2023 FINDINGS: LINES/DEVICES: None. LUNGS: No consolidation. No pneumothorax. MEDIASTINUM: Aorta is atherosclerotic. CARDIAC SILHOUETTE: Not enlarged. BONES AND SOFT TISSUES: No acute abnormalities. Surgical hardware in the cervical spine. RAD/Chest 1 View (Portable) IMPRESSION: No evidence of active intrathoracic disease. Electronically Signed: Nichol Resendiz MD at 22:08 EST ,
[2023-06-16] MEDS: 0.9% Normal Saline (1000mL) 1,000 ML 1000 ML IV (22:24)
[2023-06-16 22:30] LABS: Absolute Lymphocyte Count 1.55 X10^3/uL (0.83-4.51); Absolute Neutrophil Count 3.9 X10^3/uL (2.0-7.7); Basophil# 0.04 X10^3/uL; Basophil% 0.6 % (0-1); Eosinophil# 0.71 X10^3/uL; Eosinophils% 9.9 % (0-5); Hematocrit 40.1 % (37-47); Hemoglobin 12.8 g/dL (12.0-15.0); Lymphocyte # 1.55 X10^3/ul (0.83-4.51); Lymphocyte % 21.6 % (19-41); Mean Corp Hgb Conc 31.9 g/dL (32-36); Mean Corpuscular Hgb 29.2 pg (27.0-32.0); Mean Corpuscular Volume 91.6 fL (81-99); Mean Platelet Vol. 9.7 fl (6.2-12.0); Monocyte# 0.93 X10^3/uL; NRBC Flagged by Analyzer 0 % (0-5); Neutrophil # 3.89 X10^3/uL (2.7-7.7); Neutrophil % 54.3 % (47-70); Platelet Count 325 K/mm3 (150-450); RBC Distribution Width CV 13.3 % (11.6-14.6); RBC Distribution Width SD 45.1 fl (35.1-43.9); Red Blood Count 4.38 M/mm3 (4.2-5.4); White Blood Count 7.2 K/mm3 (4.4-11.0)
--- OUTSIDE RECORDS SUMMARY | 2023-06-16 22:33 | XMS RPT_ITS | CCD ---
Author Name Unknown Address [address] [place] [address] Organization [facility] Care Team Providers Care Bun Machine Operator Name Role Phone MATTHEW ULLOA Admitting Unavailable MATTHEW ULLOA Attending Unavailable MATTHEW ULLOA Admitting Unavailable MATTHEW ULLOA Attending Unavailable MATTHEW ULLOA Admitting Unavailable MATTHEW ULLOA Attending Unavailable MEMO HUBER Unavailable KATHRYN LANG MD Admitting Unavailable KATHRYN LANG MD Attending Unavailable KATHRYN LANG MD Primary Care Unavailable PROVIDER, UNKNOWN Consulting Unavailable Jaimee Palomares PA-C Primary Care Provider [phone] Jaimee Palomares PA-C Primary Care Provider [phone] Jaimee Palomares PA-C Primary Care Provider [phone] Jaimee Palomares PA-C Primary Care Provider [phone] Jaimee PALOMARES Primary Care Unavailable ANAY ESTEBAN Attending Unavailable IBETH ALBERT Referring Unavailable Jaimee PALOMARES Primary Care Unavailable SHIRA KAM Attending Unavailable DELORIS TROY Attending Unavailable DELORIS TROY Referring Unavailable Jaimee PALOMARES Primary Care Unavailable DELORIS TROY Attending Unavailable Jaimee PALOMARES Primary Care Unavailable SHIRA KAM Referring Unavailable Jaimee PALOMARES Primary Care Unavailable IBETH ALBERT Referring Unavailable MEMO LEAHY JR Referring Unavailable URVASHI HUGHES Attending Unavailable Jaimee PALOMARES Primary Care Unavailable LILIAM ROWELL Attending Unavailable Jaimee PALOMARES Primary Care Unavailable Jaimee PALOMARES Primary Care Unavailable Jaimee PALOMARES Attending Unavailable Jaimee PALOMARES Primary Care Unavailable JENIFER YEAGER Attending Unavailable MEMO HUBER Referring Unavailable Jaimee PALOMARES Primary Care Unavailable MEMO HUBER Referring Unavailable Jaimee PALOMARESORY Primary Care Unavailable FLO MARTINO Attending Unavailab Jaimee Francois Primary Care Unavailable PALOMARES, M CICI Primary Care Unavailable URVASHI HUGHES Referring Unavailable PALOMARES, Jaimee CICI Referring Unavailable IBETH ALBERT Attending Unavailable PALOMARES, Jaimee RAMSEYCICI Primary Care Unavailable PALOMARES, Jaimee RAMSEYCICI Primary Care Unavailable PALOMARES, Jaimee RAMSEYCICI Referring Unavailable PALOMARES, M CICI Primary Care Unavailable PALOMARES, Jaimee BOLANOS Attending Unavailable PALOMARES, Jaimee BOLANOS Attending Unavailable PALOMARES, Jaimee RAMSEYCICI Primary Care Unavailable PALOMARES, Jaimee CICI Primary Care Unavailable URVASHI HUGHES Attending Unavailable PALOMARES, Jaimee BOLANOS Attending Unavailable PALOMARES, M CICI Primary Care Unavailable PALOMARES, M CICI Primary Care Unavailable YOEL HUGHESEN Referring Unavailable JENIFER YEAGER Referring Unavailable CARMELITA RAGSDALE Attending Unavailable JELANI, Jaimee BOLANOS Primary Care Unavailable JENIFER YEAGER Referring Unavailable PALOMARES, Jaimee CICI Primary Care Unavailable MEMO HUBER Attending Unavailable PALOMARES, Jaimee BOLANOS Primary Care Unavailable SHIRA KAM Referring Unavailable PALOMARES, Jaimee RAMSEYCICI Primary Care Unavailable JAMES HARTMANN Attending Unavailable Jaimee PALOMARES Attending Unavailable PALOMARES, Jaimee CICI Primary Care Unavailable Allergies Allergy Classification Reported Allergen(s) Allergy Type Date of Onset Reaction(s) Facility (20 sources) fentaNYL; Translations: [FENTANYL] Drug Allergy 6 Other: See Comments [facility] Repository (20 sources) varenicline; Translations: [VARENICLINE] Drug Allergy 7 Intolerance [facility] Repository (1 source) varenicline Drug Allergy [facility] Repository Medications Current Medications Medication Drug Class(es) Dates Sig (Normalized) Sig (Original) acetaminophen 325 mg / HYDROcodone bitartrate 5 mg oral tablet (1 source) Opioid Agonist Start: 01-04-2022 End: 01-11-2022 HYDROcodone-acetami nophen (NORCO) 5-325 mg per tablet Indications: pain TAKE 1 PILL UP TO EVERY 6 HOURS NEEDED FOR SEVERE ACUTE BREAKTHROUGH PAIN. DO NOT EXCEED 4 PILLS IN A 24 HOUR PERIOD. 28 tablet 0 01/04/2022 01/11/2022 Active Completed/Discontinued Medications Medication Drug Class(es) Dates Sig (Normalized) Sig (Original) [id number] 200 actuat albuterol 0.09 mg/actuat metered dose inhaler (20 sources) beta2-Adrenergic Agonist Start: 07-28-2021 End: 11-06-2021 take 2.5 mg by inhalation every four hours as needed albuterol (PROVENTIL) 2.5 mg /3 mL (0.083 %) nebulizer solution Use 3 mL via nebulizer every 4 hours as needed for wheezing/shortnes s of breath. Use over 5-15minutes. 120 mL 5 11/06/2021 Active Problems Active Problems Problem Classification Problem Date Documented Date Episodic/Chronic Alcohol-related disorders (20 sources) Alcohol dependence, in remission; Translations: [Alcohol abuse] Onset: 05-08-2019 10-30-2020 Chronic Anxiety disorders (2 sources) Post-traumatic stress disorder, unspecified; Translations: [Anxiety disorder, unspecified] Onset: 05-08-2019 Chronic Chronic obstructive pulmonary disease and bronchiectasis (20 sources) Chronic obstructive pulmonary disease with (acute) exacerbation; Translations: [Pulmonary emphysema] Onset: 09-30-2016 09-30-2016 Chronic Conditions associated with dizziness or vertigo (1 source) Postural dizziness; Translations: [Dizziness and giddiness] Episodic Deficiency and other anemia (2 sources) Iron deficiency anemia; Translations: [Iron deficiency anemia, unspecified] Episodic Disorders of lipid metabolism (5 sources) Hyperlipidemia, unspecified; Translations: [Mixed hyperlipidemia] Onset: 05-08-2019 Chronic Esophageal disorders (20 sources) Gastro-esophageal reflux disease without esophagitis; Translations: [Gastroesophageal reflux disease] Onset: 06-03-2014 06-03-2014 Chronic Essential hypertension (20 sources) Essential (primary) hypertension; Translations: [Hypertensive disorder] Onset: 05-02-2014 05-02-2014 Chronic Fluid and electrolyte disorders (2 sources) Low serum potassium level - finding; Translations: [Hypokalemia] Episodic Genitourinary symptoms and ill-defined conditions (20 sources) Genuine stress incontinence; Translations: [Stress incontinence (female) (male)] Onset: 11-12-2021 Chronic Genitourinary symptoms and ill-defined conditions (2 sources) Brown-colored urine; Translations: [Other abnormal findings in urine] Episodic Headache; including migraine (1 source) New daily persistent headache; Translations: [New daily persistent headache (NDPH)] Chronic Hepatitis (20 sources) Chronic active hepatitis C; Translations: [Chronic viral hepatitis C] Onset: 11-23-2021 Chronic Immunizations and screening for infectious disease (7 sources) Vaccination needed; Translations: [Encounter for immunization] Episodic Mood disorders (2 sources) Bipolar disorder, unspecified; Translations: [Depressive disorder] Onset: 05-08-2019 Chronic Nonmalignant breast conditions (1 source) Fibrocystic changes of bilateral breasts; Translations: [Diffuse cystic mastopathy of right breast] 02-14-2023 Chronic Nutritional deficiencies (19 sources) Vitamin D deficiency; Translations: [Vitamin D deficiency, unspecified] Onset: 08-26-2020 Chronic Osteoarthritis (4 sources) Osteoarthritis of right hip joint; Translations: [Unilateral primary osteoarthritis, right hip] Onset: 02-09-2023 02-16-2023 Chronic Other aftercare (3 sources) Polypharmacy ; Translations: [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] Episodic Other aftercare (1 source) Post-discharge follow-up; Translations: [Encounter for follow-up examination after completed treatment for conditions other than malignant neoplasm] Episodic Other connective tissue disease (5 sources) Fibromyalgia; Translations: [Fibromyalgia] Episodic Other connective tissue disease (1 source) Myofascial pain; Translations: [Myalgia, other site] Episodic Other connective tissue disease (2 sources) Recurrent falls ; Translations: [Repeated falls] Episodic Other connective tissue disease (1 source) Bilateral hand weakness; Translations: [Other symptoms and signs involving the musculoskeletal system] 05-10-2023 Episodic Other connective tissue disease (1 source) Arthrodesis status; Translations: [Arthrodesis status] Onset: 06-08-2023 Episodic Other connective tissue disease (1 source) Other symptoms and signs involving the musculoskeletal system; Translations: [Weakness of both hands] Onset: 05-10-2023 Episodic Other diseases of veins and lymphatics (20 sources) Edema; Translations: [Chronic venous hypertension (idiopathic) without complications of unspecified lower extremity] Onset: 07-28-2016 10-28-2016 Chronic Other diseases of veins and lymphatics (2 sources) Bilateral lower limb edema; Translations: [Chronic venous hypertension (idiopathic) without complications of bilateral lower extremity] Chronic Other diseases of veins and lymphatics (1 source) Chronic venous hypertension (idiopathic) without complications of bilateral lower extremity; Translations: [Stasis edema of both lower extremities] Onset: 10-28-2016 Chronic Other female genital disorders (3 sources) Vaginal discharge; Translations: [Other specified noninflammatory disorders of vagina] Episodic Other female genital disorders (1 source) Vaginal odor; Translations: [Other specified noninflammatory disorders of vagina] Episodic Other hereditary and degenerative nervous system conditions (20 sources) Impaired cognition; Translations: [Mild cognitive impairment, so stated] Onset: 02-27-2022 Chronic Other hereditary and degenerative nervous system conditions (1 source) Mild cognitive impairment, so stated; Translations: [Cognitive impairment, mild, so stated] Onset: 02-27-2022 Chronic Other lower respiratory disease (2 sources) Shortness of breath; Translations: [Shortness of breath] Onset: 05-08-2019 Episodic Other lower respiratory disease (1 source) Multiple nodules of lung; Translations: [Other nonspecific abnormal finding of lung field] Episodic Other nervous system disorders (2 sources) Other chronic pain; Translations: [Other chronic pain] Onset: 04-21-2016 Chronic Other nervous system disorders (20 sources) Bilateral carpal tunnel syndrome; Translations: [Carpal tunnel syndrome, bilateral upper limbs] Onset: 09-23-2015 09-23-2015 Chronic Other nervous system disorders (2 sources) Chronic pain; Translations: [Other chronic pain] Chronic Other nervous system disorders (1 source) Slurred speech; Translations: [Slurred speech] Episodic Other nervous system disorders (3 sources) Impaired cognition; Translations: [Other symptoms and signs involving cognitive functions and awareness] Episodic Other nervous system disorders (1 source) Abnormal gait; Translations: [Unsteadiness on feet] Episodic Other nervous system disorders (2 sources) Impairment of balance; Translations: [Other abnormalities of gait and mobility] Episodic Other nervous system disorders (1 source) Paresthesia of hand ; Translations: [Anesthesia of skin] 05-10-2023 Episodic Other nervous system disorders (1 source) Cold hands; Translations: [Other disturbances of skin sensation] 05-10-2023 Episodic Other nervous system disorders (1 source) Anesthesia of skin; Translations: [Numbness and tingling in both hands] Onset: 05-10-2023 Episodic Other nervous system disorders (1 source) Paresthesia of skin; Translations: [Numbness and tingling in both hands] Onset: 05-10-2023 Episodic Other nervous system disorders (1 source) Other disturbances of skin sensation; Translations: [Complaining of cold hands] Onset: 05-10-2023 Episodic Other nutritional; endocrine; and metabolic disorders (20 sources) Obesity; Translations: [Obesity, unspecified] 09-29-2015 Chronic Other nutritional; endocrine; and metabolic disorders (20 sources) Body mass index 40+ - severely obese; Translations: [Morbid (severe) obesity due to excess calories] Onset: 09-29-2016 09-29-2016 Chronic Other nutritional; endocrine; and metabolic disorders (2 sources) Weight loss; Translations: [Abnormal weight loss] Episodic Residual codes; unclassified (1 source) History of clinical finding in subject; Translations: [Personal history of other specified conditions] Episodic Residual codes; unclassified (4 sources) Memory impairment; Translations: [Other amnesia] Episodic Residual codes; unclassified (1 source) Tobacco user; Translations: [Tobacco use] Episodic Residual codes; unclassified (1 source) Hallucinations; Translations: [Hallucinations, unspecified] Episodic Residual codes; unclassified (1 source) Family history of breast cancer; Translations: [Family history of malignant neoplasm of breast] 02-14-2023 Episodic Residual codes; unclassified (1 source) Family history of malignant neoplasm of ovary; Translations: [Family history of malignant neoplasm of ovary] 02-14-2023 Episodic Schizophrenia and other psychotic disorders (20 sources) Delusional disorders; Translations: [Delusional disorder] Onset: 10-14-2016 08-12-2017 Chronic Spondylosis; intervertebral disc disorders; other back problems (20 sources) Other intervertebral disc degeneration, lumbar region; Translations: [Degeneration of lumbar intervertebral disc] Onset: 12-20-2017 03-30-2018 Chronic Spondylosis; intervertebral disc disorders; other back problems (20 sources) Lumbago with sciatica, unspecified side; Translations: [Radiculopathy, lumbar region] Onset: 11-05-2015 03-28-2014 Episodic Substance-related disorders (20 sources) Nicotine dependence, cigarettes, uncomplicated; Translations: [Tobacco user] Onset: 03-28-2014 03-28-2014 Chronic Syncope (1 source) Syncope; Translations: [Syncope and collapse] Episodic Thyroid disorders (1 source) Acquired hypothyroidism; Translations: [Hypothyroidism, unspecified] Chronic Transient cerebral ischemia (3 sources) Cerebral ischemia; Translations: [Transient cerebral ischemic attack, unspecified] Onset: 01-26-2023 Chronic Unclassified (2 sources) NO SHOW Past or Other Problems Problem Classification Problem Date Documented Date Episodic/Chronic Deficiency and other anemia (20 sources) Anemia; Translations: [Anemia, unspecified] Onset: 11-04-2015 11-04-2015 Episodic Diabetes mellitus without complication (20 sources) Hyperglycemia; Translations: [Hyperglycemia, unspecified] Onset: 07-14-2016 07-14-2016 Episodic Fracture of upper limb (20 sources) Closed fracture of upper limb; Translations: [Unspecified fracture of shaft of humerus, unspecified arm, initial encounter for closed fracture] Onset: 01-31-2022 Episodic Inflammatory diseases of female pelvic organs (20 sources) Bacterial vaginosis; Translations: [Acute vaginitis] Onset: 02-02-2022 02-02-2022 Episodic Nonmalignant breast conditions (6 sources) Mastodynia; Translations: [Mastodynia] Onset: 09-01-2022 Episodic Nonspecific chest pain (20 sources) Chest pain; Translations: [Other chest pain] Onset: 10-21-2021 10-21-2021 Episodic Other aftercare (1 source) 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; Translations: [Polypharmacy] Onset: 08-26-2022 Episodic Other and unspecified benign neoplasm (20 sources) History of polyp of colon; Translations: [Personal history of colonic polyps] Onset: 11-23-2021 Episodic Other and unspecified benign neoplasm (1 source) Personal history of colonic polyps; Translations: [History of colonic polyps] Onset: 11-23-2021 Episodic Other connective tissue disease (1 source) Myalgia, other site; Translations: [Myofascial pain] Onset: 10-14-2022 Episodic Other connective tissue disease (1 source) Fibromyalgia; Translations: [Fibromyalgia] Onset: 07-29-2022 Episodic Other connective tissue disease (1 source) Repeated falls; Translations: [Falls frequently] Onset: 01-26-2023 Episodic Other injuries and conditions due to external causes (20 sources) Finding of urine substance level; Translations: [Elevated urine levels of drugs, medicaments and biological substances] Onset: 08-16-2018 08-16-2018 Episodic Other nervous system disorders (1 source) Other abnormalities of gait and mobility; Translations: [Balance problem] Onset: 01-26-2023 Episodic Other nervous system disorders (1 source) Other symptoms and signs involving cognitive functions and awareness; Translations: [Cognitive impairment] Onset: 08-26-2022 Episodic Other nutritional; endocrine; and metabolic disorders (1 source) Abnormal weight loss; Translations: [Weight loss] Onset: 10-20-2022 Episodic Other screening for suspected conditions (not mental disorders or infectious disease) (20 sources) Echocardiogram abnormal; Translations: [Abnormal findings on diagnostic imaging of heart and coronary circulation] Onset: 08-18-2017 08-18-2017 Episodic Pulmonary heart disease (20 sources) Personal history of pulmonary embolism; Translations: [Pulmonary thromboembolism] Onset: 06-28-2016 06-28-2016 Episodic Residual codes; unclassified (1 source) Hallucinations, unspecified; Translations: [Hallucinations] Onset: 02-11-2023 Episodic Results Test Name Value Interpretation Reference Range Facil ity Vital Signs Date Time Vital Sign Value Performing Clinician Faci lit 05-10-2023 11:11-0500 Diastolic blood pressure 70 mm[Hg] Flo Martino MD Work Phone: [facility] 05-10-2023 11:11-0500 Heart rate 67 /min Flo Martino MD Work Phone: [facility] 05-10-2023 11:11-0500 Respiratory rate 20 /min Flo Martino MD Work Phone: [facility] 05-10-2023 11:11-0500 SaO2% (BldA) [Mass fraction] 99 % Flo Martino MD Work Phone: [facility] 05-10-2023 11:11-0500 Systolic blood pressure 118 mm[Hg] Flo Martino MD Work Phone: [facility] 02-14-2023 10:24-0400 Body height 165.1 cm Carmelita Ragsdale MD Work Phone: [facility] 02-14-2023 10:24-0400 Body weight 70.31 kg Carmelita Ragsdale MD Work Phone: [facility] 12-16-2022 11:20-0400 Body weight 64.05 kg Urvashi Dahlhausen SENIOR BUSINESS ARCHITECT.SENIOR CONTRACTS ADMINISTRATOR Work Phone: [facility] 12-16-2022 11:20-0400 Diastolic blood pressure 100 mm[Hg] Urvashi Dahlhausen SENIOR BUSINESS ARCHITECT.SENIOR CONTRACTS ADMINISTRATOR Work Phone: [facility] 12-16-2022 11:20-0400 Heart rate 106 /min Urvashi Dahlhausen SENIOR BUSINESS ARCHITECT.SENIOR CONTRACTS ADMINISTRATOR Work Phone: [facility] 12-16-2022 11:20-0400 Respiratory rate 20 /min Urvashi Dahlhausen SENIOR BUSINESS ARCHITECT.SENIOR CONTRACTS ADMINISTRATOR Work Phone: [facility] 12-16-2022 11:20-0400 SaO2% (BldA) [Mass fraction] 98 % Urvashi Dahlhausen SENIOR BUSINESS ARCHITECT.SENIOR CONTRACTS ADMINISTRATOR Work Phone: [facility] 12-16-2022 11:20-0400 Systolic blood pressure 168 mm[Hg] Urvashi Dahlhausen SENIOR BUSINESS ARCHITECT.SENIOR CONTRACTS ADMINISTRATOR Work Phone: [facility] 12-09-2022 15:17-0400 Body weight 71.67 kg NA Palomares PA-C Work Phone: [facility] 12-09-2022 15:17-0400 Diastolic blood pressure 80 mm[Hg] NA Palomares PA-C Work Phone: [facility] 12-09-2022 15:17-0400 Heart rate 72 /min NA Palomares PA-C Work Phone: [facility] 12-09-2022 15:17-0400 Respiratory rate 18 /min NA Palomares PA-C Work Phone: [facility] 12-09-2022 15:17-0400 SaO2% (BldA) [Mass fraction] 96 % NA Palomares PA-C Work Phone: [facility] 12-09-2022 15:17-0400 Systolic blood pressure 128 mm[Hg] NA Palomares PA-C Work Phone: [facility] 10-20-2022 11:10-0400 Body weight 61.24 kg Jeniferluis Yeager APRN.CNM Work Phone: [facility] 10-20-2022 11:10-0400 Diastolic blood pressure 84 mm[Hg] Jeniferluis Yeager APRN.CNM Work Phone: [facility] 10-20-2022 11:10-0400 Systolic blood pressure 144 mm[Hg] Jenifer Toy MOON.CNM Work Phone: [facility] 10-14-2022 13:24-0400 Heart rate 75 /min Deloris Troy MD Work Phone: [facility] 10-14-2022 13:24-0400 Respiratory rate 16 /min Deloris Troy MD Work Phone: [facility] 10-14-2022 13:24-0400 SaO2% (BldA) [Mass fraction] 97 % Deloris Troy MD Work Phone: [facility] 09-16-2022 14:05-0400 Body weight 59.42 kg NA Palomares PA-C Work Phone: [facility] 09-16-2022 14:05-0400 Diastolic blood pressure 88 mm[Hg] NA Palomares PA-C Work Phone: [facility] 09-16-2022 14:05-0400 Heart rate 92 /min NA Palomares PA-C Work Phone: [facility] 09-16-2022 14:05-0400 Respiratory rate 18 /min NA Palomares PA-C Work Phone: [facility] 09-16-2022 14:05-0400 SaO2% (BldA) [Mass fraction] 99 % NA Palomares PA-C Work Phone: [facility] 09-16-2022 14:05-0400 Systolic blood pressure 170 mm[Hg] NA Palomares PA-C Work Phone: [facility] 08-26-2022 10:03-0500 Body temperature 97.81 [degF] Urvashi Dahlhausen SENIOR BUSINESS ARCHITECT.SENIOR CONTRACTS ADMINISTRATOR Work Phone: [facility] 08-26-2022 10:03-0500 Body weight 61.24 kg Urvashi Dahlhausen SENIOR BUSINESS ARCHITECT.SENIOR CONTRACTS ADMINISTRATOR Work Phone: [facility] 08-26-2022 10:03-0500 Diastolic blood pressure 96 mm[Hg] Urvashi Dahlhausen SENIOR BUSINESS ARCHITECT.SENIOR CONTRACTS ADMINISTRATOR Work Phone: [facility] 08-26-2022 10:03-0500 Heart rate 74 /min Urvashi Dahlhausen SENIOR BUSINESS ARCHITECT.SENIOR CONTRACTS ADMINISTRATOR Work Phone: [facility] 08-26-2022 10:03-0500 Respiratory rate 18 /min Urvashi Dahlhausen SENIOR BUSINESS ARCHITECT.SENIOR CONTRACTS ADMINISTRATOR Work Phone: [facility] 08-26-2022 10:03-0500 SaO2% (BldA) [Mass fraction] 97 % Urvashi Dahlhausen SENIOR BUSINESS ARCHITECT.SENIOR CONTRACTS ADMINISTRATOR Work Phone: [facility] 08-26-2022 10:03-0500 Systolic blood pressure 129 mm[Hg] Urvashi Dahlhausen SENIOR BUSINESS ARCHITECT.SENIOR CONTRACTS ADMINISTRATOR Work Phone: [facility] 08-16-2022 10:58-0500 Body weight 64.41 kg NA Palomares PA-C Work Phone: [facility] 08-16-2022 10:58-0500 Diastolic blood pressure 80 mm[Hg] NA Palomares PA-C Work Phone: [facility] 08-16-2022 10:58-0500 Heart rate 74 /min NA Palomares PA-C Work Phone: [facility] 08-16-2022 10:58-0500 Respiratory rate 18 /min NA Palomares PA-C Work Phone: [facility] 08-16-2022 10:58-0500 SaO2% (BldA) [Mass fraction] 97 % NA Palomares PA-C Work Phone: [facility] 08-16-2022 10:58-0500 Systolic blood pressure 148 mm[Hg] NA Palomares PA-C Work Phone: [facility] 06-03-2022 11:10-0500 Heart rate 80 /min Shira Powellfield SENIOR BUSINESS ARCHITECT.SENIOR CONTRACTS ADMINISTRATOR Work Phone: [facility] 06-03-2022 11:10-0500 Respiratory rate 16 /min Shira Powellfield SENIOR BUSINESS ARCHITECT.SENIOR CONTRACTS ADMINISTRATOR Work Phone: [facility] 06-03-2022 11:10-0500 SaO2% (BldA) [Mass fraction] 95 % Shira Powellfield SENIOR BUSINESS ARCHITECT.SENIOR CONTRACTS ADMINISTRATOR Work Phone: [facility] 05-25-2022 14:53-0500 Body weight 67.77 kg Jenifer Yeager SENIOR BUSINESS ARCHITECT.CNM Work Phone: [facility] 05-25-2022 14:53-0500 Diastolic blood pressure 64 mm[Hg] Jenifer Yeager SENIOR BUSINESS ARCHITECT.CNM Work Phone: [facility] 05-25-2022 14:53-0500 Systolic blood pressure 112 mm[Hg] Jenifer Yeager SENIOR BUSINESS ARCHITECT.CNM Work Phone: [facility] 05-14-2022 10:53-0500 Body weight 65.77 kg NA Palomares PA-C Work Phone: [facility] 05-14-2022 10:53-0500 Diastolic blood pressure 78 mm[Hg] NA Palomares PA-C Work Phone: [facility] 05-14-2022 10:53-0500 Heart rate 93 /min NA Palomares PA-C Work Phone: [facility] 05-14-2022 10:53-0500 SaO2% (BldA) [Mass fraction] 97 % NA Palomares PA-C Work Phone: [facility] 05-14-2022 10:53-0500 Systolic blood pressure 148 mm[Hg] NA Palomares PA-C Work Phone: [facility] 05-07-2022 14:35-0500 Body temperature 97.81 [degF] Memo Leahy Jr., MD Work Phone: [facility] 05-07-2022 14:35-0500 Body weight 68.04 kg Memo Leahy Jr., MD Work Phone: [facility] 05-07-2022 14:35-0500 Diastolic blood pressure 62 mm[Hg] Memo Leahy Jr., MD Work Phone: [facility] 05-07-2022 14:35-0500 Heart rate 80 /min Memo Leahy Jr., MD Work Phone: [facility] 05-07-2022 14:35-0500 Respiratory rate 18 /min Memo Leahy Jr., MD Work Phone: [facility] 05-07-2022 14:35-0500 SaO2% (BldA) [Mass fraction] 97 % Memo Leahy Jr., MD Work Phone: [facility] 05-07-2022 14:35-0500 Systolic blood pressure 118 mm[Hg] Memo Leahy Jr., MD Work Phone: [facility] 04-01-2022 08:34-0400 Body weight 73.48 kg NA Palomares PA-C Work Phone: [facility] 04-01-2022 08:34-0400 Diastolic blood pressure 78 mm[Hg] NA Palomares PA-C Work Phone: [facility] 04-01-2022 08:34-0400 Heart rate 69 /min NA Palomares PA-C Work Phone: [facility] 04-01-2022 08:34-0400 Respiratory rate 20 /min NA Palomares PA-C Work Phone: [facility] 04-01-2022 08:34-0400 SaO2% (BldA) [Mass fraction] 96 % NA Palomares PA-C Work Phone: [facility] 04-01-2022 08:34-0400 Systolic blood pressure 128 mm[Hg] NA Palomares PA-C Work Phone: [facility] 03-17-2022 10:57-0400 Body height 175.3 cm Sarahi Whitlock MD Work Phone: [facility] 03-17-2022 10:57-0400 Body weight 74.39 kg Sarahi Whitlock MD Work Phone: [facility] 03-17-2022 10:57-0400 Diastolic blood pressure 84 mm[Hg] Sarahi Whitlock MD Work Phone: [facility] 03-17-2022 10:57-0400 Heart rate 60 /min Sarahi Whitlock MD Work Phone: [facility] 03-17-2022 10:57-0400 Systolic blood pressure 122 mm[Hg] Sarahi Whitlock MD Work Phone: [facility] 02-25-2022 14:25-0400 Body temperature 98.6 [degF] NA Palomares PA-C Work Phone: [facility] 02-25-2022 14:25-0400 Body weight 74.39 kg NA Palomares PA-C Work Phone: [facility] 02-25-2022 14:25-0400 Diastolic blood pressure 72 mm[Hg] NA Palomares PA-C Work Phone: [facility] 02-25-2022 14:25-0400 Heart rate 90 /min NA Palomares PA-C Work Phone: [facility] 02-25-2022 14:25-0400 Respiratory rate 16 /min NA Palomares PA-C Work Phone: [facility] 02-25-2022 14:25-0400 SaO2% (BldA) [Mass fraction] 96 % NA Palomares PA-C Work Phone: [facility] 02-25-2022 14:25-0400 Systolic blood pressure 110 mm[Hg] NA Palomares PA-C Work Phone: [facility] 02-24-2022 10:45-0400 Diastolic blood pressure 61 mm[Hg] Deloris Troy MD Work Phone: [facility] 02-24-2022 10:45-0400 Systolic blood pressure 87 mm[Hg] Deloris Troy MD Work Phone: [facility] 02-24-2022 10:28-0400 Body temperature 99.19 [degF] Deloris Troy MD Work Phone: [facility] 02-24-2022 10:28-0400 Respiratory rate 16 /min Deloris Troy MD Work Phone: [facility] 02-24-2022 10:28-0400 SaO2% (BldA) [Mass fraction] 97 % Deloris Troy MD Work Phone: [facility] 02-24-2022 09:41-0400 Heart rate 98 /min Deloris Troy MD Work Phone: [facility] 02-11-2022 13:19-0400 Diastolic blood pressure 64 mm[Hg] NA Palomares PA-C Work Phone: [facility] 02-11-2022 13:19-0400 Systolic blood pressure 100 mm[Hg] NA Palomares PA-C Work Phone: [facility] 02-11-2022 10:06-0400 Body weight 75.3 kg NA Palomares PA-C Work Phone: [facility] 01-18-2022 11:10-0400 Body weight 80.29 kg Nguyen Tree SENIOR BUSINESS ARCHITECT.SENIOR CONTRACTS ADMINISTRATOR Work Phone: [facility] 01-18-2022 11:10-0400 Diastolic blood pressure 78 mm[Hg] Nguyen Saint Anthony SENIOR BUSINESS ARCHITECT.SENIOR CONTRACTS ADMINISTRATOR Work Phone: [facility] 01-18-2022 11:10-0400 Systolic blood pressure 112 mm[Hg] Nguyen Saint Anthony SENIOR BUSINESS ARCHITECT.SENIOR CONTRACTS ADMINISTRATOR Work Phone: [facility] 12-15-2021 08:23-0400 Diastolic blood pressure 82 mm[Hg] Blaine Ann MD Work Phone: [facility] 12-15-2021 08:23-0400 Heart rate 75 /min Blaine Ann MD Work Phone: [facility] 12-15-2021 08:23-0400 SaO2% (BldA) [Mass fraction] 96 % Blaine Ann MD Work Phone: [facility] 12-15-2021 08:23-0400 Systolic blood pressure 134 mm[Hg] Blaine Ann MD Work Phone: [facility] 12-07-2021 11:32-0400 Body height 175.3 cm Denice Gr SENIOR BUSINESS ARCHITECT.SENIOR CONTRACTS ADMINISTRATOR Work Phone: [facility] 12-07-2021 11:32-0400 Body weight 83.92 kg Denice Gr SENIOR BUSINESS ARCHITECT.SENIOR CONTRACTS ADMINISTRATOR Work Phone: [facility] 11-27-2021 15:05-0400 Diastolic blood pressure 87 mm[Hg] Josué Blevins MD Work Phone: [facility] 11-27-2021 15:05-0400 Heart rate 72 /min Josué Blevins MD Work Phone: [facility] 11-27-2021 15:05-0400 Respiratory rate 16 /min Josué Blevins MD Work Phone: [facility] 11-27-2021 15:05-0400 SaO2% (BldA) [Mass fraction] 94 % Josué Blevins MD Work Phone: [facility] 11-27-2021 15:05-0400 Systolic blood pressure 127 mm[Hg] Josué Blevins MD Work Phone: [facility] 11-27-2021 14:48-0400 Body temperature 98.01 [degF] Josué Blevins MD Work Phone: [facility] 11-27-2021 14:19-0400 Body height 175.3 cm Josué Blevins MD Work Phone: [facility] 11-27-2021 14:19-0400 Body weight 83.92 kg Josué Blevins MD Work Phone: [facility] 11-23-2021 09:17-0400 Body height 175.3 cm Josué Blevins MD Work Phone: [facility] 11-23-2021 09:17-0400 Body weight 83.92 kg Josué Blevins MD Work Phone: [facility] 11-23-2021 09:17-0400 Diastolic blood pressure 78 mm[Hg] Josué Blevins MD Work Phone: [facility] 11-23-2021 09:17-0400 Heart rate 79 /min Josué Blevins MD Work Phone: [facility] 11-23-2021 09:17-0400 Systolic blood pressure 108 mm[Hg] Josué Blevins MD Work Phone: [facility] 11-12-2021 14:13-0400 Body weight 85.73 kg NA Palomares PA-C Work Phone: [facility] 11-12-2021 14:13-0400 Diastolic blood pressure 70 mm[Hg] NA Palomares PA-C Work Phone: [facility] 11-12-2021 14:13-0400 Heart rate 74 /min NA Palomares PA-C Work Phone: [facility] 11-12-2021 14:13-0400 Respiratory rate 16 /min NA Palomares PA-C Work Phone: [facility] 11-12-2021 14:13-0400 SaO2% (BldA) [Mass fraction] 94 % NA Palomares PA-C Work Phone: [facility] 11-12-2021 14:13-0400 Systolic blood pressure 112 mm[Hg] NA Palomares PA-C Work Phone: [facility] Encounters Encounter Date Encounter Type Care Provider Facility Start: 06-08-2023 End: 06-09-2023 ambulatory [facility] [place] Facility:[facility] Start: 05-25-2023 Telephone encounter Greg Martino MD Work Phone: [facility] [place] Procedures Date Procedure Procedure Detail Performing Clinician Start: 01-26-2023 Mri brain brain stem w/o contrast material Urvashi Vergaracandido SENIOR BUSINESS ARCHITECT.SENIOR CONTRACTS ADMINISTRATOR Work Phone: Start: 09-01-2022 Us breast uni real t juju with image limited Memo Huber MD Work Phone: Start: 09-01-2022 End: 09-01-2022 Mammography Memo Huber MD Work Phone: Start: 04-01-2022 INFLUENZA VACCINE QUADRIVALENT 6 MO - 64 YRS IM M Cici Palomares PA-C Work Phone: Start: 04-01-2022 [employer] COVI D-19 BIVALENT BOOSTER VACCINE, AGE 12+ YR M Cici Palomares PA-C Work Phone: Start: 02-24-2022 End: 02-24-2022 Njx anes&/strd w/img tfrml edrl lmbr/sac 1 lvl Deloris Troy MD Work Phone: Start: 02-18-2022 Adult depression scr eening assessment Deloris Troy MD Work Phone: Start: 12-15-2021 Urnls dip stick/tabl et rgnt auto w/o microscopy Blaine Ann MD Work Phone: Start: 11-27-2021 Colonoscopy flx dx w /collj spec when pfrmd Josué Blevins MD Work Phone: Start: 11-27-2021 Colonoscopy Josué Curry MD Work Phone: Start: 11-25-2021 Us abdominal real ti me w/image limited Josué Blevins MD Work Phone: Start: 11-12-2021 [employer] COVI D-19 VACCINE, AGE 12+ YR ([facility] [facility]) Jaimee Palomares PA-C Work Phone: Start: 11-12-2021 Adult depression scr eening assessment NA Palomares PA-C Work Phone: Start: 11-10-2021 End: 11-10-2021 Digital breast tomosynthesis bilateral Jaimee Palomares PA-C Work Phone: Start: 10-01-2021 End: 10-01-2021 Screening mammography bi 2-view breast inc cad Bulk Order Provider Start: 05-28-2019 Mammography NA Palomares PA-C Work Phone: Start: 02-13-2019 Adult depression scr eening assessment NA Palomares PA-C Work Phone: Start: 02-13-2019 Lipid 1996 panel - S cintia or Plasma NA Palomares PA-C Work Phone: Start: 03-10-2016 Colonoscopy NA Palomares PA-C Work Phone: Start: 10-02-2014 Colonoscopy Denice darling APRN.SENIOR CONTRACTS ADMINISTRATOR Work Phone: Plan of Treatment Date Care Activity Detail Author Start: 11-13-2031 Urine microalbumin profile [facility] Start: 11-27-2026 Colonoscopy COLONOSCOPY [facility] Start: 11-27-2026 COLORECTAL CANCER SCREENING COLORECTAL CANCER SCREENING [facility] Start: 10-20-2025 DIABETES SCREEN DIABETES SCREEN [facility] Start: 10-20-2025 Diabetes Screening Diabetes Screenin g [facility] Start: 03-09-2025 DIABETES SCREEN DIABETES SCREEN [facility] Start: 11-12-2024 DIABETES SCREEN DIABETES SCREEN [facility] Start: 05-10-2024 Annual PCP Team [employer]inery Process Technician pari Disease Visit Annual PCP Team Chronic Disease Visit [facility] Start: 05-10-2024 BP Controlled (<130/80) BP Controlle d (<130/80) [facility] Start: 02-14-2024 Lipid 1996 panel - S cintia or Plasma Lipid Screening [facility] Start: 02-14-2024 LIPID SCREEN LIPID SCREEN [facility] Start: 02-10-2024 BP CONTROLLED (<130/80) BP CONTROLLE D (<130/80) [facility] Start: 01-05-2024 ANNUAL PCP TEAM IMPORT AND EXPORT CLERK PARI DISEASE VISIT ANNUAL PCP TEAM CHRONIC DISEASE VISIT [facility] Start: 12-10-2023 ANNUAL PCP TEAM IMPORT AND EXPORT CLERK PARI DISEASE VISIT ANNUAL PCP TEAM CHRONIC DISEASE VISIT [facility] Start: 11-09-2023 ANNUAL PCP TEAM IMPORT AND EXPORT CLERK PARI DISEASE VISIT ANNUAL PCP TEAM CHRONIC DISEASE VISIT [facility] Start: 09-17-2023 ANNUAL PCP TEAM IMPORT AND EXPORT CLERK PARI DISEASE VISIT ANNUAL PCP TEAM CHRONIC DISEASE VISIT [facility] Start: 09-02-2023 Mammography [facility] Start: 08-16-2023 ANNUAL PCP TEAM IMPORT AND EXPORT CLERK PARI DISEASE VISIT ANNUAL PCP TEAM CHRONIC DISEASE VISIT [facility] Start: 07-29-2023 ANNUAL PCP TEAM IMPORT AND EXPORT CLERK PARI DISEASE VISIT ANNUAL PCP TEAM CHRONIC DISEASE VISIT [facility] Start: 07-29-2023 BP CONTROLLED (<130/80) BP CONTROLLE D (<130/80) [facility] Start: 05-26-2023 Influenza vaccination LUNG CANCER SC REENING [facility] Start: 05-25-2023 BP CONTROLLED (<130/80) BP CONTROLLE D (<130/80) [facility] Start: 05-14-2023 ANNUAL PCP TEAM IMPORT AND EXPORT CLERK PARI DISEASE VISIT ANNUAL PCP TEAM CHRONIC DISEASE VISIT [facility] Start: 05-07-2023 BP CONTROLLED (<130/80) BP CONTROLLE D (<130/80) [facility] Start: 04-01-2023 ANNUAL PCP TEAM IMPORT AND EXPORT CLERK PARI DISEASE VISIT ANNUAL PCP TEAM CHRONIC DISEASE VISIT [facility] Start: 04-01-2023 BP CONTROLLED (<130/80) BP CONTROLLE D (<130/80) [facility] Start: 04-01-2023 SHINGRIX VACCINE (2 of 2) ULLOA GRIX VACCINE (2 of 2) [facility] Immunizations Immunization Date Immunization Notes Care Provider Ruth moses 04-01-2022 COVID-19 booster vaccine, age 12+ yr, bivalent ([employer]) NA Jelani SHIN Work Phone: [facility] 04-01-2022 influenza, injectabl e, quadrivalent, contains preservative ASHLEY Palomares PA-C Work Phone: [facility] 04-01-2022 influenza virus vacc ine, unspecified formulation NA Palomares PA-C Work Phone: [facility] 11-12-2021 pneumococcal Conjuga te, unspecified formulation NA Palomares PA-C Work Phone: [facility] Work Phone: 11-12-2021 COVID-19 vaccine, ag e 12+ yr ([facility]) NA Palomares PA-C Work Phone: [facility] 11-12-2021 pneumococcal (PCV20) vaccine, 20 valent (PREVNAR 20) NA Palomares PA-C Work Phone: [facility] 11-12-2021 tetanus toxoid, redu ricky diphtheria toxoid, and acellular pertussis vaccine, adsorbed NA Palomares PA-C Work Phone: [facility] 11-12-2021 zoster vaccine recombinant NA Palomares PA-C Work Phone: [facility] 01-23-2021 COVID-19 vaccine (LEROY) NA Palomares PA-C Work Phone: [facility] 05-09-2019 influenza, seasonal, injectable NA Palomares PA-C Work Phone: [facility] 03-13-2018 influenza, injectabl e, quadrivalent, contains preservative NA Palomares PA-C Work Phone: [facility] Work Phone: 05-05-2017 influenza, injectabl e, quadrivalent, contains preservative NA Palomares PA-C Work Phone: [facility] Work Phone: 04-30-2016 influenza, seasonal, injectable, preservative free NA Palomares PA-C Work Phone: [facility] 02-27-2016 influenza, injectabl e, quadrivalent, contains preservative NA Palomares PA-C Work Phone: [facility] 02-26-2016 influenza, seasonal, injectable NA Palomares PA-C Work Phone: [facility] 06-04-2015 influenza, injectabl e, quadrivalent, contains preservative NA Palomares PA-C Work Phone: [facility] 06-04-2015 influenza, seasonal, injectable NA Palomares PA-C Work Phone: [facility] 06-03-2014 influenza, seasonal, injectable NA Palomares PA-C Work Phone: [facility] Work Phone: 05-02-2014 pneumococcal polysaccharide vaccine, 23 valent NA Palomares PA-C Work Phone: [facility] Work Phone: 06-20-2006 TD(adult) unspecifie d formulation NA Palomares PA-C Work Phone: [facility] 06-20-2006 tetanus and diphther ia toxoids, adsorbed, preservative free, for adult use (2 Lf of tetanus toxoid and 2 Lf of diphtheria toxoid) NA Palomares PA-C Work Phone: [facility] Payers Date Payer Category Payer Medicaid [id number] 2013 Medicaid [facility] [id number] 2013-Present [phone] [address] [place] [address] Medicaid [id number] 2013 Medicaid [id number] 2013 Unknown [id number] 1968 Unknown [id number] Social History Date Type Detail Facility Start: 10-14-2016 End: 10-14-2022 Tobacco smoking status CAIS Smokes tobacco daily [facility] History of tobacco use Cigarette Smoker [facility] Start: 10-14-2016 End: 07-02-2022 Cigarettes smoked current (pack per day) - Reported 0.75 [facility] Start: 10-14-2016 End: 10-14-2022 Tobacco use and exposure Smokeless tobacco non-user [facility] Start: 06-18-2021 End: 08-27-2021 Alcohol intake Current drinker of alcohol (finding) [facility] Start: 07-23-2021 History SDOH Alcohol Frequency 1 [facility] Start: 07-23-2021 History SDOH Alcohol Std Drinks 5 [facility] Start: 07-23-2021 History SDOH Social Connections Get Together 2 [facility] Start: 07-23-2021 History SDOH Social Connections Meetings 3 [facility] Start: 07-23-2021 History SDOH Stress 4 [facility] Start: 09-29-2015 End: 02-11-2022 Tobacco Comment started smoking 12yr .5 to .75 of pack daily-in process of quitting as of 09/29/15 [facility] Start: 1970 Sex Assigned At Female [facility] Start: 08-17-2021 End: 05-07-2022 Exposure to SARS-CoV-2 (event) Not sure [facility] Start: 11-23-2021 End: 05-10-2023 Alcohol intake Ex-drinker (finding) [facility] Start: 02-20-2022 End: 03-02-2022 Exposure to SARS-CoV-2 (event) Unable to assess [facility] Start: 07-29-2022 Tobacco Comment started smoking 12yr, 3 cigs daily [facility] Start: 07-23-2021 End: 07-02-2022 Social connection and isolation panel [facility] Frequency of Communication with Friends and Family Not on file [facility] Work Phone: Do you belong to any clubs or organizations such as worship groups, unions, fraternal or athletic groups, or school groups? Yes [facility] Are you now , , , , never or living with a partner? [facility] How often to you hav e a drink containing alcohol? Never [facility] How many standard dr inks containing alcohol do you have on a typical day? 10 or more [facility] How hard is it for y ou to pay for the very basics like food, housing, medical care, and heating [facility] Do you feel stress - tense, restless, nervous, or anxious, or unable to sleep at night because your mind is troubled all the time - these days [OSQ] Rather much [facility] (I/We) worried wheth er (my/our) food would run out before (I/we) got money to buy more. Sometimes true [facility] The food that (I/we) bought just didn't last, and (I/we) didn't have money to get more. Never true [facility] At any time in the p ast 12 months, were you homeless or living in jail [including now]? No [facility] Start: 03-05-2021 Gender identity Identifies as female gender (finding) [facility] Start: 03-05-2021 Sexual orientation Heterosexual (finding) [facility] Clinical Notes 05-02-2021 to 06-08-2023 Telephone Encounter - Agustina Guillen Ma - 05/25/2023 9:51 AM ESTTelephone Encounter - Flo Martino MD - 05/25/2023 9:38 AM Flo Reyna MD - 05/10/2023 11:12 AM EST Note Date & Type Note Facility 06-08-2023 Note HNO ID: [id number] Author: Liliam Rowell APRN.SENIOR CONTRACTS ADMINISTRATOR Service: ? Author Type: Nurse Practitioner Type: Progress Notes Filed: 06/08/2023 1:03 PM Note Text: This is a 53 year old female who presents today with: Patient presents with: [facility] follow up: zaki EVANGEILSTA 06/06; transferred from [facility] HISTORY OF PRESENT ILLNESS: Mariluz Garcia is a 53 year old female. Patient presents with: [facility] follow up: zaki EVANGELISTA 06/06; transferred from [facility] Pt presents today for hospital/[facility] follow-up. Went to the hospital d/t arms and legs stopped working. Called squad to go to the ER. 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 Had C3-C5 ACDF on 05/18. Did well after surgery. Went to [facility] [place] on 05/23 for additional rehab. Discharged from there on 06/06. Thought that she would have home-health therapy, but hasn't heard anything yet. Using walker to get around home. Refers hands still numb and still with trouble gripping. No steps at home. Has someone preparing food for her. Refers that she has chronic trouble with bladder control. However, had an episode of incontinence this morning. Didn't know she had to go until it was too late. Appetite has been okay. Breathing has been good. No chest pain/palpitations. No increased leg swelling. Not taking anything for pain other than tylenol. Also on lyrica. Has next follow-up on 06/29. Records reviewed. Per hospital discharge notes, her metoprolol was decreased to 25 mg daily. However on discharge medication list, she was taking 50 mg daily. It also was on her discharge notes that she was restarted on fluoxetine during her hospitalization; however it was not listed on her discharge medication list. Nursing called [facility] and verified that patient is taking metoprolol 50 mg daily and that she was not receiving prozac. PAST MEDICAL HISTORY: PAST MEDICAL HISTORY Diagnosis Date Alcohol abuse Anemia Back pain Blood dyscrasia Cervical spondylosis without myelopathy Cholecystitis 04/2020 Chronic hepatitis C (HCC) DDD (degenerative disc disease), lumbar Depression with anxiety Drug use 08/15/2018 ecstacy Emphysema of lung (HCC) Encounter for support and coordination of transition of care 05/15/2020 HOSPITAL/ER FOLLOW UP Which facility: [facility] Dates of visit: 05/10-05/13/2020 Preadmission evaluation: ER with right-sided abdominal pain over 2-1/2 hours, 10 out of 10. Worse with coughing. States she vomited 20 times the day before, with episodes of diarrhea over the past 2 days. Had used Imodium which improved diarrhea. No known exposures to Covid. Also identified chest pain which started a Encounter for support and coordination of transition of care 05/02/2021 Hospital discharge summary: Date of admission 05/01/2021 Date of discharge: Facility: [facility] 05/01/2021 presented to the emergency room with acute alcohol intoxication, initial alcohol level 7-8. Acknowledges over the last 5 months drinking 15 packs a day at 8% alcohol (joseaidna garciaalfa). Vital signs 96.6 [id number]%. Appearance was no acute distress. WBC 7.9-Hgb 13.8-HCT 39 Encounter for support and coordination of transition of care 05/05/2022 05/05/2022 patient called squad, transported to [facility] with lightheadedness and multiple syncopal episodes one of them resulting in injury to her right foot. GERD (gastroesophageal reflux disease) Hyperglycemia Hypertension Lung abscess (HCC) saw Néstor Li and Dr. Zarate. Major depression Mild protein-calorie malnutrition (HCC) 08/26/2020 Obesity PE (pulmonary thromboembolism) (HCC) PTSD (post-traumatic stress disorder) Snoring Tobacco use disorder Vasovagal syncope PAST SURGICAL HISTORY Procedure Laterality Date CARPAL TUNNEL Left 09/2015 COLONOSCOPY 11/27/2021 COLONOSCOPY FLX DX W/COLLJ SPEC WHEN PFRMD several years ago Colonoscopy COLONOSCOPY FLX DX W/COLLJ SPEC WHEN PFRMD 10/02/2014 Colonoscopy ESOPHAGOGASTRODUODENOSCOPY TRANSORAL DIAGNOSTIC 10/02/2014 EGD HEART CATHETERIZATION 10/30/2013 normal coronary arteries HYSTERECTOMY HX 2004 menorrhagia. JONAS/right oophorectomy. bowel adhesion HYSTERECTOMY HX 1989' LAPAROSCOPY SURG CHOLECYSTECTOMY 05/12/2020 NEUROPLASTY AND/TRANSPOS MEDIAN NRV CARPAL TUNNE Right 11/21/2015 Carpal tunnel decomp OVARIAN CYSTECTOMY UNI/BI 1996 left oophorectomy and 20# cyst PAST SURGICAL HISTORY OF 07/2012 Lumbar discectomy L3-L4 PAST SURGICAL HISTORY OF 09/2012 repeat lumbar surgery PAST SURGICAL HISTORY OF Right 12/2021 Wrist due to fracture (steel plate and 17 screws) SKIN GRAFT,SCALP,ARMS,LEGS 12/2013 bilateral posterior thigh autograft, fell in firepit TONSILLECTOMY AND ADENOIDECTOMY ALLERGIES Fentanyl and Chantix [Varenicline] MEDICATIONS Current Outpatient Medications Medication Sig ibuprofen (MOT (more content not included)... [facility] 05-26-2023 Note HNO ID: [id number] Author: Rima Espinal PTA Service: ? Author Type: Rehab Trainer Type: Progress Notes Filed: 05/26/2023 4:36 PM Note Text: 05/26/2023 [facility]ORTS THERAPY PHYSICAL THERAPY DISCONTINUANCE OF CARE Plan of Care Period: Start of Care Date: 02/16/23 Last Visit Date: 03/11/2023 Therapy Program: Patient did not return for follow up care as planned. Please refer to last visit note for interventions provided for this episode of care. Assessment: Unable to formally assess goal achievement. Reason for Discontinuation of Care: Patient has not returned to therapy or scheduled additional follow-up appointments. Rima Espinal PTA [facility] 05-25-2023 Miscellaneous Notes Patient notified and in nursing facility at this time Agustina Guillen Ma Patient's MRI of the cervical spine ordered by our office has not been approved by her insurance. It appears she had MRI of cervical spine at [facility] on 05/16 and was hospitalized after a fall. Will cancel our order. F/u with PCP team for hospital discharge. documented in this encounter [facility] 05-20-2023 Miscellaneous Notes Completed forms faxed Forms to providers desk to review and complete. Type of form: CMN/Incontinence Order Form from [facility] Form received via fax When form is completed, Fax form to [phone] Form has been forwarded to Provider Mailbox: ALEIDA Diane documented in this encounter [facility] 05-10-2023 Note HNO ID: [id number] Author: Flo Martino MD Service: ? Author Type: Physician Type: Progress Notes Filed: 05/11/2023 4:49 PM Note Text: Chief Complaint Patient presents with: ER F/U: Numbness and tingling in Bilateral hands HPI Mariluz Garcia is a 53 year old female who presents here today for ER Follow Up.. Patient evaluated at [facility] ED on 04/29 for complaint of tingling in her right and left hand with weakness after she had nerve stimulator removed from dorsal spine. Symptoms started several months ago around December, but had worsening symptoms after stimulator removed on the . Non focal neuro exam in the ED. CBC and CMP unremarkable. C-spine xray showed loss of normal cervical lordosis with mild narrowing and spondylosis at C5-C6 level and minimal anterolisthesis of C3, 4, and 5. Diagnosed with peripheral neuropathy and recommended f/u with PCP team in 3-5 days. Since discharge, states that her numbness/tingling and weakness in her hands continues to gradually worsen. Feels like hands are cold without cyanosis. Fingers will turn white from PIP up, not associated with cold weather. History of carpal tunnel with surgery bilaterally about 6-7 years ago. MRI of the brain in January was normal. Denies severe headache, vision loss, facial droop, recent head injury. Past medical history, appointments, medications, allergies reviewed. Previous Medical History PAST MEDICAL HISTORY Diagnosis Date Alcohol abuse Anemia Back pain Blood dyscrasia Cervical spondylosis without myelopathy Cholecystitis 04/2020 Chronic hepatitis C (HCC) DDD (degenerative disc disease), lumbar Depression with anxiety Drug use 08/15/2018 ecstacy Emphysema of lung (HCC) Encounter for support and coordination of transition of care 05/15/2020 HOSPITAL/ER FOLLOW UP Which facility: [facility] Dates of visit: 05/10-05/13/2020 Preadmission evaluation: ER with right-sided abdominal pain over 2-1/2 hours, 10 out of 10. Worse with coughing. States she vomited 20 times the day before, with episodes of diarrhea over the past 2 days. Had used Imodium which improved diarrhea. No known exposures to Covid. Also identified chest pain which started a Encounter for support and coordination of transition of care 05/02/2021 Hospital discharge summary: Date of admission 05/01/2021 Date of discharge: Facility: [facility] 05/01/2021 presented to the emergency room with acute alcohol intoxication, initial alcohol level 7-8. Acknowledges over the last 5 months drinking 15 packs a day at 8% alcohol (natty dadalfa). Vital signs 96.6 F-78-18-111/73-98%. Appearance was no acute distress. WBC 7.9-Hgb 13.8-HCT 39 Encounter for support and coordination of transition of care 05/05/2022 05/05/2022 patient called squad, transported to [facility] with lightheadedness and multiple syncopal episodes one of them resulting in injury to her right foot. GERD (gastroesophageal reflux disease) Hyperglycemia Hypertension Lung abscess ([facility]) saw Néstor Li and Dr. Zarate. Major depression Mild protein-calorie malnutrition ([facility]) 08/26/2020 Obesity PE (pulmonary thromboembolism) ([facility]) PTSD (post-traumatic stress disorder) Snoring Tobacco use disorder Vasovagal syncope Previous Surgical History PAST SURGICAL HISTORY Procedure Laterality Date CARPAL TUNNEL Left 09/2015 COLONOSCOPY 11/27/2021 COLONOSCOPY FLX DX W/COLLJ SPEC WHEN PFRMD several years ago Colonoscopy COLONOSCOPY FLX DX W/COLLJ SPEC WHEN PFRMD 10/02/2014 Colonoscopy ESOPHAGOGASTRODUODENOSCOPY TRANSORAL DIAGNOSTIC 10/02/2014 EGD HEART CATHETERIZATION 10/30/2013 normal coronary arteries HYSTERECTOMY HX 2004 menorrhagia. JONAS/right oophorectomy. bowel adhesion HYSTERECTOMY HX 1989' LAPAROSCOPY SURG CHOLECYSTECTOMY 05/12/2020 NEUROPLASTY AND/TRANSPOS MEDIAN NRV CARPAL TUNNE Right 11/21/2015 Carpal tunnel decomp OVARIAN CYSTECTOMY UNI/BI 1996 left oophorectomy and 20# cyst PAST SURGICAL HISTORY OF 07/2012 Lumbar discectomy L3-L4 PAST SURGICAL HISTORY OF 09/2012 repeat lumbar surgery PAST SURGICAL HISTORY OF Right 12/2021 Wrist due to fracture (steel plate and 17 screws) SKIN GRAFT,SCALP,ARMS,LEGS 12/2013 bilateral posterior thigh autograft, fell in firepit TONSILLECTOMY AND ADENOIDECTOMY Family History FAMILY HISTORY Problem Relation Age of Onset Hypertension Mother Cancer Mother lung, metastatic Heart Father Heart Maternal Grandmother Stroke Maternal Grandmother Colon Cancer No Family History Patient Allergies ALLERGIES Allergen Reactions Fentanyl Other: See Comments PATCH ONLY. Respiratory distress due to rapid absorption. Chantix [Vareniclin* Intolerance hallucinations Current Medications Current Outpatient Medications on File Prior to Visit Medication Sig cyanocobalamin (VITAMIN B-12) 1,000 mcg tab Take 1 tablet by mouth once daily. metoprolol succinate (more content not included)... [facility] 05-10-2023 History of Present illness Narrative Chief Complaint Patient presents with: ER F/U: Numbness and tingling in Bilateral hands HPI Mariluz Garcia is a 53 year old female who presents here today for ER Follow Up.. Patient evaluated at [facility] ED on 04/29 for complaint of tingling in her right and left hand with weakness after she had nerve stimulator removed from dorsal spine. Symptoms started several months ago around December, but had worsening symptoms after stimulator removed on the . Non focal neuro exam in the ED. CBC and CMP unremarkable. C-spine xray showed loss of normal cervical lordosis with mild narrowing and spondylosis at C5-C6 level and minimal anterolisthesis of C3, 4, and 5. Diagnosed with peripheral neuropathy and recommended f/u with PCP team in 3-5 days. Since discharge, states that her numbness/tingling and weakness in her hands continues to gradually worsen. Feels like hands are cold without cyanosis. Fingers will turn white from PIP up, not associated with cold weather. History of carpal tunnel with surgery bilaterally about 6-7 years ago. MRI of the brain in January was normal. Denies severe headache, vision loss, facial droop, recent head injury. Past medical history, appointments, medications, allergies reviewed. Previous Medical History PAST MEDICAL HISTORY Diagnosis Date Alcohol abuse Anemia Back pain Blood dyscrasia Cervical spondylosis without myelopathy Cholecystitis 04/2020 Chronic hepatitis C (HCC) DDD (degenerative disc disease), lumbar Depression with anxiety Drug use 08/15/2018 ecstacy Emphysema of lung (HCC) Encounter for support and coordination of transition of care 05/15/2020 HOSPITAL/ER FOLLOW UP Which facility: [facility] Dates of visit: 05/10-05/13/2020 Preadmission evaluation: ER with right-sided abdominal pain over 2-1/2 hours, 10 out of 10. Worse with coughing. States she vomited 20 times the day before, with episodes of diarrhea over the past 2 days. Had used Imodium which improved diarrhea. No known exposures to Covid. Also identified chest pain which started a Encounter for support and coordination of transition of care 05/02/2021 Hospital discharge summary: Date of admission 05/01/2021 Date of discharge: Facility: [facility] 05/01/2021 presented to the emergency room with acute alcohol intoxication, initial alcohol level 7-8. Acknowledges over the last 5 months drinking 15 packs a day at 8% alcohol (marcin samaniego). Vital signs 96.6 F-78-18-111/73-98%. Appearance was no acute distress. WBC 7.9-Hgb 13.8-HCT 39 Encounter for support and coordination of transition of care 05/05/2022 05/05/2022 patient called squad, transported to [facility] with lightheadedness and multiple syncopal episodes one of them resulting in injury to her right foot. GERD (gastroesophageal reflux disease) Hyperglycemia Hypertension Lung abscess ([facility]) saw Néstor Li and Dr. Zarate. Major depression Mild protein-calorie malnutrition ([facility]) 08/26/2020 Obesity PE (pulmonary thromboembolism) ([facility]) PTSD (post-traumatic stress disorder) Snoring Tobacco use disorder Vasovagal syncope Previous Surgical History PAST SURGICAL HISTORY Procedure Laterality Date CARPAL TUNNEL Left 09/2015 COLONOSCOPY 11/27/2021 COLONOSCOPY FLX DX W/COLLJ SPEC WHEN PFRMD several years ago Colonoscopy COLONOSCOPY FLX DX W/COLLJ SPEC WHEN PFRMD 10/02/2014 Colonoscopy ESOPHAGOGASTRODUODENOSCOPY TRANSORAL DIAGNOSTIC 10/02/2014 EGD HEART CATHETERIZATION 10/30/2013 normal coronary arteries HYSTERECTOMY HX 2004 menorrhagia. JONAS/right oophorectomy. bowel adhesion HYSTERECTOMY HX 1989' LAPAROSCOPY SURG CHOLECYSTECTOMY 05/12/2020 NEUROPLASTY &/TRANSPOS MEDIAN NRV CARPAL TUNNE Right 11/21/2015 Carpal tunnel decomp OVARIAN CYSTECTOMY UNI/BI 1996 left oophorectomy and 20# cyst PAST SURGICAL HISTORY OF 07/2012 Lumbar discectomy L3-L4 PAST SURGICAL HISTORY OF 09/2012 repeat lumbar surgery PAST SURGICAL HISTORY OF Right 12/2021 Wrist due to fracture (steel plate and 17 screws) SKIN GRAFT,SCALP,ARMS,LEGS 12/2013 bilateral posterior thigh autograft, fell in firepit TONSILLECTOMY & ADENOIDECTOMY <AGE 10 1977 Family History FAMILY HISTORY Problem Relation Age of Onset Hypertension Mother Cancer Mother lung, metastatic Heart Father Heart Maternal Grandmother Stroke Maternal Grandmother Colon Cancer No Family History Patient Allergies ALLERGIES Allergen Reactions Fentanyl Other: See Comments PATCH ONLY. Respiratory distress due to rapid absorption. Chantix [Vareniclin* Intolerance hallucinations Current Medications Current Outpatient Medications on File Prior to Visit Medication Sig cyanocobalamin (VITAMIN B-12) 1,000 mcg tab Take 1 tablet by mouth once daily. metoprolol succinate ER (TOPROL XL) 50 mg 24 hr tablet Take 1 tablet by mouth once daily. Cholecalciferol, Vitamin D3, (VITAMIN D) 25 mcg (1,000 unit) cap Take 1 capsule by mouth once daily. omeprazole (PRILOSEC) 20 mg capsule Take 1 capsule by mouth once daily. L.acidophilus-L.rhamnosus (FLORAJEN WOMEN) 15 billion cell capsule Take 1 capsule by mouth once daily. amLODIPine (NORVASC) 10 mg tablet Take 1 tablet by mouth once daily. budesonide-formoterol (SYMBICORT) 160-4.5 mcg/actuation inhaler Inhale 2 Puffs as instructed twice daily. atorvastatin (LIPITOR) 40 mg tablet Take 1 tablet by mouth daily at bedtime. pregabalin (LYRICA) 150 mg capsule Take one pill three times per day mirabegron (MYRBETRIQ) 25 mg Tb24 Take 1 tablet by mouth once daily. thiamine (VITAMIN B1) 100 mg tablet Take 1 tablet by mouth once daily. tiotropium bromide (SPIRIVA RESPIMAT) 2.5 mcg/actuation inhaler Inhale 2 Puffs as instructed once daily. buPROPion XL (WELLBUTRIN XL) 150 mg 24 hr tablet Take 1 tablet by mouth once daily. traZODone (DESYREL) 150 mg tablet Take 1 tablet by mouth at bedtime as needed. albuterol HFA (VENTOLIN HFA) 90 mcg/actuation inhaler Inhale 2 Puffs as instructed every 4 hours as needed for wheezing/shortness of breath. ferrous sulfate 325 mg (65 mg iron) tablet Take 1 tablet by mouth twice daily. VITAMIN C 500 mg tablet albuterol (PROVENTIL) 2.5 mg /3 mL (0.083 %) nebulizer solution Use 3 mL via nebulizer every 4 hours as needed for wheezing/shortness of breath. Use over 5-15minutes. ibuprofen (MOTRIN) 800 mg tablet Take 1 tablet by mouth every 8 hours as needed for pain. Take with food. oxybutynin ER (DITROPAN XL) 10 mg 24 hr tablet TAKE 1 TABLET BY MOUTH DAILY Blood Pressure Monitor 1 Each once daily. ICD 10 code I10 Blood Pressure Test Kit-Medium kit 1 Each once daily. OLANZapine (ZYPREXA) 5 mg tablet Take 1 tablet by mouth once daily. WALKER ROLLATOR SEAT WITH 6 WHEELS - RED For daily use. M54.40, G89.29 Chronic left-sided low back pain with sciatica, sciatica laterality unspecified (primary encounter diagnosis) M51.36 DDD (degenerative disc disease), lumbar M47.816 Lumbar spondylosis R26.81 Gait instability Nebulizers Use as directed. levothyroxine (SYNTHROID) 25 mcg tablet Take 25 mcg by mouth daily before breakfast. COMPOUNDED PRESCRIPTION Standard size Rollator Walker #1 Dx Large Blood Pressure Cuff #1 M51.36 DDD (degenerative disc disease), lumbar (primary encounter diagnosis) I10 Essential hypertension COMPOUNDED PRESCRIPTION ADJUSTABLE CANE DX M51.36 No current facility-administered medications on file prior to visit. Social History Social History Tobacco Use Smoking status: Every Day Packs/day: 0.25 Years: 32.00 Additional pack years: 0.00 Total pack years: 8.00 Types: Cigarettes Smokeless tobacco: Never Tobacco comments: started smoking 12yr, 3 cigs daily Vaping Use Vaping Use: Never used Substance Use Topics Alcohol use: Not Currently Drug use: Yes Types: Marijuana Review of Symptoms REVIEW OF SYSTEMS See HPI EXAM: BP 118/70 Pulse 67 Resp 20 SpO2 99% General Appearance: Well appearing, alert, in no acute distress, well-hydrated, well nourished.. Skin: Skin color, texture, turgor normal, no suspicious rashes or lesions. Neck: No C spine TTP. Normal ROM. . Lungs: Lungs clear to auscultation. No wheezing, rhonchi, rales.. Heart: RRR without murmur, gallop, or rubs. No ectopy. Musculoskeletal: No joint swelling, deformity, or tenderness. Neurologic: 4/5 hearing healthcare practitioner strength bilaterally. 5/5 strength in arms. Decreased sensation to light touch over palms, forearms, and lateral upper arms. Positive tinels. Unable to perform phalens. DTRs in UE equal. Pulses: radial and medial pulses, brachial 2+ bilaterally. Right hand cold compared to left. Health Maintenance List Hepatitis B Vaccine(1 of 3 - 3-dose series) Never done Spirometry Never done Hepatitis A Vaccine(1 of 2 - Risk 2-dose series) Never done Alpha-1 Antitrypsin Deficiency Screening Never done Shingrix Vaccine(2 of 2) due on 01/07/2022 Influenza Vaccine(1) due on 02/18/2023 Covid-19 Vaccine( - season) due on 02/18/2023 Mammogram Screening due on 09/02/2023 Annual PCP Team Chronic Disease Visit due on 01/05/2024 BP Controlled (<130/80) due on 02/10/2024 Lipid Screening due on 02/14/2024 Diabetes Screening due on 10/20/2025 Colorectal Cancer Screening due on 11/27/2026 DTaP,Tdap,Td Vaccine(2 - Td or Tdap) due on 11/13/2031 Depression Assessment Completed Hepatitis C Screening Completed HIV Screening Completed Pneumococcal Vaccine Completed Pap Testing Discontinued HPV Testing Discontinued ASSESSMENT/PLAN: 1. Weakness of both hands - ICD9: 729.89, ICD10: R29.898 (primary diagnosis) Obtain EMG and MRI of cervical spine to rule out cervical spinal stenosis, carpal tunnel, ulnar neuropathy. Continue Lyrica for nerve pain. Red flags for re-assessment reviewed with patient in detail. - EMG(NEURO/NI) - MRI CERVICAL SPINE WO IVCON 2. Numbness and tingling in both hands - ICD9: 782.0, ICD10: R20.0, R20.2 See above. - EMG(NEURO/NI) - MRI CERVICAL SPINE WO IVCON 3. Complaining of cold hands - ICD9: 782.0, ICD10: R20.8 Pulses normal. Obtain UA of upper extremity arteries for cold hand. Red flags for re-assessment reviewed with patient in detail. Already on amlodipine which would help with raynauds. Discussed keeping hands warm and wearing gloves in cold weather. Run under water for change in finger color. - US ARM ARTERIAL [facility] - MRI CERVICAL SPINE WO IVCON Flo Martino MD documented in this encounter [facility] 03-11-2023 Note HNO ID: [id number] Author: Rima Espinal PTA Service: ? Author Type: Rehab Trainer Type: Progress Notes Filed: 03/11/2023 1:25 PM Note Text: Episode Visit Count: 2 Therapist That Will Accept/Oversee The Plan Of Care: Mary Start of Care Date: 02/16/23 Onset Date: 01/01/22 Plan of Care Certification Date: 02/16/23 Next Certification Due Date: 04/17/23 REHABILITATION AND SPORTS THERAPY PHYSICAL THERAPY TREATMENT NOTE ASSESSMENT: Mariluz Garcia tolerated the session with increased symptoms and expected muscle soreness. She demonstrated difficulty with pain levels with all movement patterns. Pt had most relief fully unloaded in deep water, DKTC was most beneficial to decrease pain. Pt did have increased pain post tx. The patient will continue to benefit from ongoing skilled physical therapy to progress toward set goals. PLAN FOR NEXT VISIT: assess response to aquatics SUBJECTIVE: Pt states increased pain levels today. No falls since last tx. Pain: OBJECTIVE MEASURES WITH LEVEL OF FUNCTION: TREATMENT: Aquatic Therapy: Footwear on pool deck pre-treatment: Yes, patient wearing appropriate footwear and appeared safe on pool deck Footwear on pool deck post-treatment: Yes, patient wearing appropriate footwear and appeared safe on pool deck Entered the pool: Forward on stairs Entered the pool assist level: [place], With rail Aquatic Therapy ([id number]): Walking, Lower Extremity, Stretching and Flexibility, Vertical / [place] - Buoyancy Supported Walking: Forward Walking, Lateral/ Side Stepping Water Turbulence: #1 Forward Walking: x5 Lateral/Side Stepping: x5 Lower Extremity: Hip Flexion, Hip Extension, Hip Abduction, Hip Circumduction Hip Flexion: 2x10 Hip Extension: 2x10 Hip Abduction: 2x10 Hip Circumduction: 5/5ea Vertical/[place] - Buoyancy Supported : Hip Abduction/ Adduction, Hip Flexion/ Extension, Bicycle, Knee to Chest, Vertical Unloading Hip Abduction/Adduction: 2x5 Hip Flexion/Extension: 2x5 Bicycle: x5' Knee to Chest: 2x10 Vertical Unloading: x10' Abbreviation Collier: BA = buoyancy assisted BR = buoyancy resisted BS = buoyancy supported reps = repetitions HEP = home exercise program Skilled Intervention: Patient was educated in proper exercise technique and purpose for exercises. Skilled judgment was provided in selection of appropriate interventions. Skilled judgment used to assess appropriate program for balance and coordination activity. Correct performance of exercises was facilitated with verbal and visual cueing. Group Therapy: 1: walking patterns 2: deep water exercisdes Skilled Intervention: Aquatic Skilled judgment was provided in selection of appropriate progression. Required verbal cues AND demonstration for proper form with exercises. Verbal, demonstrative and tactile cues for body mechanics and postural awareness. Pt was cued for gait mechanics and posture during walking patterns. This time was also used to discuss patient's response to previous treatment as well as any issues or concerns the patient may have. Billing Aquatic Therapy Treatment Minutes: 25 * Group Therapy: 1 unit Skilled Treatment Time Minutes (timed and untimed codes): 40 Total Session Time (minutes): 52 Session Start Time : 1230 Session Stop Time : [address] [facility] 03-11-2023 History of Present illness Narrative Episode Visit Count: 2 Therapist That Will Accept/Oversee The Plan Of Care: Mary Start of Care Date: 02/16/23 Onset Date: 01/01/22 Plan of Care Certification Date: 02/16/23 Next Certification Due Date: 04/17/23 REHABILITATION AND SPORTS THERAPY PHYSICAL THERAPY TREATMENT NOTE ASSESSMENT: Mariluz Garcia tolerated the session with increased symptoms and expected muscle soreness. She demonstrated difficulty with pain levels with all movement patterns. Pt had most relief fully unloaded in deep water, DKTC was most beneficial to decrease pain. Pt did have increased pain post tx. The patient will continue to benefit from ongoing skilled physical therapy to progress toward set goals. PLAN FOR NEXT VISIT: assess response to aquatics SUBJECTIVE: Pt states increased pain levels today. No falls since last tx. Pain: OBJECTIVE MEASURES WITH LEVEL OF FUNCTION: TREATMENT: Aquatic Therapy: Footwear on pool deck pre-treatment: Yes, patient wearing appropriate footwear and appeared safe on pool deck Footwear on pool deck post-treatment: Yes, patient wearing appropriate footwear and appeared safe on pool deck Entered the pool: Forward on stairs Entered the pool assist level: [place], With rail Aquatic Therapy ([id number]): Walking, Lower Extremity, Stretching and Flexibility, Vertical / [place] - Buoyancy Supported Walking: Forward Walking, Lateral/ Side Stepping Water Turbulence: #1 Forward Walking: x5 Lateral/Side Stepping: x5 Lower Extremity: Hip Flexion, Hip Extension, Hip Abduction, Hip Circumduction Hip Flexion: 2x10 Hip Extension: 2x10 Hip Abduction: 2x10 Hip Circumduction: 5/5ea Vertical/[place] - Buoyancy Supported : Hip Abduction/ Adduction, Hip Flexion/ Extension, Bicycle, Knee to Chest, Vertical Unloading Hip Abduction/Adduction: 2x5 Hip Flexion/Extension: 2x5 Bicycle: x5' Knee to Chest: 2x10 Vertical Unloading: x10' Abbreviation Collier: BA = buoyancy assisted BR = buoyancy resisted BS = buoyancy supported reps = repetitions HEP = home exercise program Skilled Intervention: Patient was educated in proper exercise technique and purpose for exercises. Skilled judgment was provided in selection of appropriate interventions. Skilled judgment used to assess appropriate program for balance and coordination activity. Correct performance of exercises was facilitated with verbal and visual cueing. Group Therapy: 1: walking patterns 2: deep water exercisdes Skilled Intervention: Aquatic Skilled judgment was provided in selection of appropriate progression. Required verbal cues & demonstration for proper form with exercises. Verbal, demonstrative and tactile cues for body mechanics and postural awareness. Pt was cued for gait mechanics and posture during walking patterns. This time was also used to discuss patient's response to previous treatment as well as any issues or concerns the patient may have. Billing Aquatic Therapy Treatment Minutes: 25 * Group Therapy: 1 unit Skilled Treatment Time Minutes (timed and untimed codes): 40 Total Session Time (minutes): 52 Session Start Time : 1230 Session Stop Time : 1322 Rima Espinal PTA documented in this encounter [facility] 03-09-2023 Miscellaneous Notes Completed and faxed. Type of form: DME Form received via fax When form is completed, Fax form to [phone] Form has been forwarded to Physician Mailbox: Faustino Mascorro LPN documented in this encounter [facility] 02-28-2023 Miscellaneous Notes Last OV: 01/04/23 - Next scheduled appt: 06/10/23 Patient has been identified by name and date of : Yes Requested Prescriptions Pending Prescriptions Disp Refills metoprolol succinate ER (TOPROL XL) 50 mg 24 hr tablet 30 tablet 3 Sig: Take 1 tablet by mouth once daily. RX INSTRUCTIONS: Pharmacy initiated this request. No need to notify patient. Zoraida Garcia LPN documented in this encounter [facility] 02-16-2023 Note HNO ID: [id number] Author: Anay Esteban, PT Service: ? Author Type: Physical Therapist Type: Progress Notes Filed: 02/16/2023 9:41 AM Note Text: Episode Visit Count: 1 Therapist That Will Accept/Oversee The Plan Of Care: Mary Start of Care Date: 02/16/23 Onset Date: 01/01/22 Plan of Care Certification Date: 02/16/23 Next Certification Due Date: 04/17/23 Patient Identified by Name and Date of : Yes REHABILITATION AND SPORTS THERAPY PHYSICAL THERAPY EVALUATION PLAN OF CARE: Assessment: Mariluz Garcia presents with chief complaint of back and leg pain that interferes with walking in the community, rising from a chair, sitting, stair negotiation, standing, bending, lifting, physical activities, sleeping . She presents with impairments in ADL's, gait, overall function, posture, and strength. Patient did not complete the PROMIS? (Patient Reported Outcome Measures Information System). Prognosis for therapy is Fair due to: clinical presentation, multiple co- morbidities, chronic nature of impairments . She will benefit from skilled therapy services to meet the goals established for this plan of care as noted below. Goals for Episode of Care: created on 02/16/23 through 04/17/23 Able to bend forward and rise back up without use of hands on thighs [place] in home exercise program. Perform ADL's with decreased report of symptoms/pain in 6-8 weeks. Increased strength of (B) LE's by one full MMT grade or better Patient Goals: decreasde pain and improved function Planned Interventions, Frequency, and Duration: Current Frequency: 2x/week Duration: 8 weeks Total Number of Visits Planned: 16 Planned Treatment Interventions: Aquatic PT (66709), Therapeutic exercise (40582), Neuromuscular re-education (88550), Manual therapy (04923), Therapeutic activities (63132), Self-detention management (13189), Gait Training (99503), Group Therapy (28319) PLAN FOR NEXT VISIT: begin aquatic therapy Patient demonstrates good understanding of plan of care and treatment. The above goals and plan of care were discussed and agreed upon by patient/family. SUBJECTIVE: pain in the (R) hip and (L) leg. Pain shoots down the left leg. All was exacerbated from a fall last December. Hip is [id number]. Patient Goals: decreasde pain and improved function Functional Limitations: walking in the community, rising from a chair, sitting, stair negotiation, standing, bending, lifting, physical activities, sleeping Prior Level of Function: Independent with restrictions Independent with the following restrictions: limitations due to chronic problems Relevant History Past Relevant Medical Conditions: Arthritis Past Relevant Surgical Conditions: Spine fusion - Lumbar Employment: Medically Disabled Intake Information: Prescription present Previous Treatment: Aquatic PT, Physical Therapy , Injections Falls Interview: Two or more falls in the last year Falls Intervention: More thorough falls assessment to be performed Pain: PROMIS Scales T-scores: mean of general population = 50. 5 points is clinically meaningfully difference Percentiles provide an indication of how the patient's score ranks in relation to the general population. Higher percentile rankings indicate better function/quality of life. 50th percentile is the average of the general population and indicates half of respondents had a worse score. OBJECTIVE MEASURES WITH LEVEL OF FUNCTION: Posture / Alignment Posture: Forward head, Rounded shoulders, Decreased lumbar lordosis, Increased thoracic kyphosis Sitting Posture: Frequent weight shifts Spine Observations R Lumbar Spine Palpation Tenderness: Paraspinals, Piriformis L Lumbar Spine Palpation Tenderness: Paraspinals Lumbar Spine AROM Lumbar Flexion: Moderate limitation, Major limitation (uses hands on thighs to assist returning to standing) Lumbar Extension: Major limitation LE Flexibility Flexibility: Hamstring Flexibility, Piriformis Flexibility R Hamstring Flexibility: mildly tight L Hamstring Flexibility: mildly tight R Piriformis Flexibility: mildly tight L Piriformis Flexibility: mildly tight LE Strength R Hip Extension: 3+/5 R Hip Flexion (L2): 4/5 R Hip ABduction: 3+/5 R Hip ADduction: 4+/5 R Knee Extension (L3): 4+/5 R Knee Flexion: 4+/5 R Ankle Dorsiflexion (L4): 4+/5 R Ankle Plantar Flexion: 4+/5 L Hip Extension: 3+/5 L Hip Flexion (L2): 4-/5 L Hip ABduction: 3+/5 L Hip ADduction: 4+/5 L Knee Extension (L3): 4/5 L Knee Flexion: 4+/5 L Ankle Dorsiflexion (L4): 3+/5 L Ankle Plantar Flexion: 4+/5 Special Tests - Hip and Spine Hip and Spine Special Tests: SLR Test, Slump Test SLR Test: Right Negative, Left Negative Slump Test: Right Negative, Left Positive Gait Gait: Modified Independent Gait Device: Cane Gait Observation: slight fwd bent posture with ambulation. decreased speed Education: Education Learni (more content not included)... [facility] 02-16-2023 History of Present illness Narrative Episode Visit Count: 1 Therapist That Will Accept/Oversee The Plan Of Care: Mary Start of Care Date: 02/16/23 Onset Date: 01/01/22 Plan of Care Certification Date: 02/16/23 Next Certification Due Date: 04/17/23 Patient Identified by Name and Date of : Yes REHABILITATION AND SPORTS THERAPY PHYSICAL THERAPY EVALUATION PLAN OF CARE: Assessment: Mariluz Garcia presents with chief complaint of back and leg pain that interferes with walking in the community, rising from a chair, sitting, stair negotiation, standing, bending, lifting, physical activities, sleeping . She presents with impairments in ADL's, gait, overall function, posture, and strength. Patient did not complete the PROMIS (Patient Reported Outcome Measures Information System). Prognosis for therapy is Fair due to: clinical presentation, multiple co- morbidities, chronic nature of impairments . She will benefit from skilled therapy services to meet the goals established for this plan of care as noted below. Goals for Episode of Care: created on 02/16/23 through 04/17/23 Able to bend forward and rise back up without use of hands on thighs [place] in home exercise program. Perform ADL's with decreased report of symptoms/pain in 6-8 weeks. Increased strength of (B) LE's by one full MMT grade or better Patient Goals: decreasde pain and improved function Planned Interventions, Frequency, and Duration: Current Frequency: 2x/week Duration: 8 weeks Total Number of Visits Planned: 16 Planned Treatment Interventions: Aquatic PT (53852), Therapeutic exercise (22714), Neuromuscular re-education (84121), Manual therapy (73737), Therapeutic activities (75018), Self-detention management (31033), Gait Training (87538), Group Therapy (58842) PLAN FOR NEXT VISIT: begin aquatic therapy Patient demonstrates good understanding of plan of care and treatment. The above goals and plan of care were discussed and agreed upon by patient/family. SUBJECTIVE: pain in the (R) hip and (L) leg. Pain shoots down the left leg. All was exacerbated from a fall last December. Hip is [id number]. Patient Goals: decreasde pain and improved function Functional Limitations: walking in the community, rising from a chair, sitting, stair negotiation, standing, bending, lifting, physical activities, sleeping Prior Level of Function: Independent with restrictions Independent with the following restrictions: limitations due to chronic problems Relevant History Past Relevant Medical Conditions: Arthritis Past Relevant Surgical Conditions: Spine fusion - Lumbar Employment: Medically Disabled Intake Information: Prescription present Previous Treatment: Aquatic PT, Physical Therapy , Injections Falls Interview: Two or more falls in the last year Falls Intervention: More thorough falls assessment to be performed Pain: PROMIS Scales T-scores: mean of general population = 50. 5 points is clinically meaningfully difference Percentiles provide an indication of how the patient's score ranks in relation to the general population. Higher percentile rankings indicate better function/quality of life. 50th percentile is the average of the general population and indicates half of respondents had a worse score. OBJECTIVE MEASURES WITH LEVEL OF FUNCTION: Posture / Alignment Posture: Forward head, Rounded shoulders, Decreased lumbar lordosis, Increased thoracic kyphosis Sitting Posture: Frequent weight shifts Spine Observations R Lumbar Spine Palpation Tenderness: Paraspinals, Piriformis L Lumbar Spine Palpation Tenderness: Paraspinals Lumbar Spine AROM Lumbar Flexion: Moderate limitation, Major limitation (uses hands on thighs to assist returning to standing) Lumbar Extension: Major limitation LE Flexibility Flexibility: Hamstring Flexibility, Piriformis Flexibility R Hamstring Flexibility: mildly tight L Hamstring Flexibility: mildly tight R Piriformis Flexibility: mildly tight L Piriformis Flexibility: mildly tight LE Strength R Hip Extension: 3+/5 R Hip Flexion (L2): 4/5 R Hip ABduction: 3+/5 R Hip ADduction: 4+/5 R Knee Extension (L3): 4+/5 R Knee Flexion: 4+/5 R Ankle Dorsiflexion (L4): 4+/5 R Ankle Plantar Flexion: 4+/5 L Hip Extension: 3+/5 L Hip Flexion (L2): 4-/5 L Hip ABduction: 3+/5 L Hip ADduction: 4+/5 L Knee Extension (L3): 4/5 L Knee Flexion: 4+/5 L Ankle Dorsiflexion (L4): 3+/5 L Ankle Plantar Flexion: 4+/5 Special Tests - Hip and Spine Hip and Spine Special Tests: SLR Test, Slump Test SLR Test: Right Negative, Left Negative Slump Test: Right Negative, Left Positive Gait Gait: Modified Independent Gait Device: Cane Gait Observation: slight fwd bent posture with ambulation. decreased speed Education: Education Learning/educational needs: Plan of Care TREATMENT: Evaluation Evaluation Billing * Evaluation Low Complexity: 1 Unit Session Start Time : 844 Session Stop Time : 914 Anay Esteban PT documented in this encounter [facility] 02-14-2023 Note HNO ID: [id number] Author: Carmelita Ragsdale MD Service: ? Author Type: Physician Type: Progress Notes Filed: 02/14/2023 4:43 PM Note Text: MEDICAL BREAST PATIENT NAME: Mariluz Garcia February 14, 2023 REFERRAL: She is referred by Jenifer Yeager APRN. CNP for an opinion regarding left breast pain. My final recommendations will be communicated back to the requesting physician by the way of the shared medical record, fax, or via US Mail. HISTORY of PRESENT ILLNESS: Mariluz Garcia is a 52 year old year old premenopausal woman who presents to the [facility] [place] today for evaluation of breast pain. She reports intermittent sharp and burning pain on the left for the past 5-6 months. It starts laterally near the axilla and shoots to the nipple. Denies any associated chest pain, SOB or exertional component. Diagnostic imaging on 09/01/2022 showed no evidence of malignancy including a focused ultrasound on the Left at 2 o'clock 9cmfn which is her primary focus of pain. The patient denies any breast masses, skin changes, or nipple discharge. Has Patient had Genetic Testing? No Her vitamin D level was Vitamin D 25 Hydroxy (ng/mL) Date Value 05/02/2014 31.1 . She takes vitamin D 1,000 units. BMD: No PERSONAL BREAST HISTORY: Past breast history (prior to this encounter) is as follows: Breast biopsy: No Breast cysts: No Breast surgery: No Breast cancer: No CANCER SURVEILLANCE: Mammograms: 09/01/2022 diagnostic jasper, normal Breast MRI: No Colonoscopy: 11/27/2021, hemorrhoids repeat 5 years RISK FACTORS FOR BREAST CANCER: Age at the onset of menses: 8 years of age. P: 0 Age at the of first child: Patient is nulliparous. Age at menopause: The patient underwent surgical menopause at age 36-37. Post-menopausal hormone therapy: No She is S/P total hysterectomy for severe bleeding. She has had a hysterectomy and does not use control. History of Mantle Radiation prior to the age of 28: No Obesity: Yes Body mass index is 25.79 kg/m?. Current Weight: 155 lbs Mammographic density: The breasts are heterogeneously dense which limits the sensitivity of mammography Personal History of Benign Atypical Breast Biopsy: No Alcohol use: occasional PAST MEDICAL HISTORY: PAST MEDICAL HISTORY Diagnosis Date Alcohol abuse Anemia Back pain Blood dyscrasia Cervical spondylosis without myelopathy Cholecystitis 04/2020 Chronic hepatitis C (HCC) DDD (degenerative disc disease), lumbar Depression with anxiety Drug use 08/15/2018 ecstacy Emphysema of lung (HCC) Encounter for support and coordination of transition of care 05/15/2020 HOSPITAL/ER FOLLOW UP Which facility: [facility] Dates of visit: 05/10-05/13/2020 Preadmission evaluation: ER with right-sided abdominal pain over 2-1/2 hours, 10 out of 10. Worse with coughing. States she vomited 20 times the day before, with episodes of diarrhea over the past 2 days. Had used Imodium which improved diarrhea. No known exposures to Covid. Also identified chest pain which started a Encounter for support and coordination of transition of care 05/02/2021 Hospital discharge summary: Date of admission 05/01/2021 Date of discharge: Facility: [facility] 05/01/2021 presented to the emergency room with acute alcohol intoxication, initial alcohol level 7-8. Acknowledges over the last 5 months drinking 15 packs a day at 8% alcohol (marcin samaniego). Vital signs 96.6 F-78-18-111/73-98%. Appearance was no acute distress. WBC 7.9-Hgb 13.8-HCT 39 Encounter for support and coordination of transition of care 05/05/2022 05/05/2022 patient called squad, transported to [facility] with lightheadedness and multiple syncopal episodes one of them resulting in injury to her right foot. GERD (gastroesophageal reflux disease) Hyperglycemia Hypertension Lung abscess (HCC) saw Néstor Li and Dr. Zarate. Major depression Mild protein-calorie malnutrition (HCC) 08/26/2020 Obesity PE (pulmonary thromboembolism) ([facility]) PTSD (post-traumatic stress disorder) Snoring Tobacco use disorder Vasovagal syncope Patient specifically denies history of: osteopenia, and osteoporosis. She has a history of HTN, HLD, PE, hyperthyroidism and migraine headaches. JONAS w RSO for AUB. PAST SURGICAL HISTORY: PAST SURGICAL HISTORY Procedure Laterality Date CARPAL TUNNEL Left 09/2015 COLONOSCOPY 11/27/2021 COLONOSCOPY FLX DX W/COLLJ SPEC WHEN PFRMD several years ago Colonoscopy COLONOSCOPY FLX DX W/COLLJ SPEC WHEN PFRMD 10/02/2014 Colonoscopy ESOPHAGOGASTRODUODENOSCOPY TRANSORAL DIAGNOSTIC 10/02/2014 EGD HEART CATHETERIZATION 10/30/2013 normal coronary arteries HYSTERECTOMY HX 2004 menorrhagia. JONAS/right oophorectomy. bowel adhesion HYSTERECTOMY HX LAPAROSCOPY SURG CHOLECYSTECTOMY 05/12/2020 NEUROPLASTY AND/TRANSPOS MEDIAN NRV CARPAL T (more content not included)... [facility] 02-14-2023 Instructions Agustina Brown PA-C - 02/14/2023 11:18 AM EDT Patient to call [phone] for appointment with genetics. documented in this encounter [facility] 02-14-2023 History of Present illness Narrative Images from the original note were not included. MEDICAL BREAST PATIENT NAME: Mariluz Garcia February 14, 2023 REFERRAL: She is referred by Jenifer Yeager APRN. CNP for an opinion regarding left breast pain. My final recommendations will be communicated back to the requesting physician by the way of the shared medical record, fax, or via US Mail. HISTORY of PRESENT ILLNESS: Mariluz Garcia is a 52 year old year old premenopausal woman who presents to the [facility] for evaluation of breast pain. She reports intermittent sharp and burning pain on the left for the past 5-6 months. It starts laterally near the axilla and shoots to the nipple. Denies any associated chest pain, SOB or exertional component. Diagnostic imaging on 09/01/2022 showed no evidence of malignancy including a focused ultrasound on the Left at 2 o'clock 9cmfn which is her primary focus of pain. The patient denies any breast masses, skin changes, or nipple discharge. Has Patient had Genetic Testing? No Her vitamin D level was Vitamin D 25 Hydroxy (ng/mL) Date Value 05/02/2014 31.1 . She takes vitamin D 1,000 units. BMD: No PERSONAL BREAST HISTORY: Past breast history (prior to this encounter) is as follows: Breast biopsy: No Breast cysts: No Breast surgery: No Breast cancer: No CANCER SURVEILLANCE: Mammograms: 09/01/2022 diagnostic jasper, normal Breast MRI: No Colonoscopy: 11/27/2021, hemorrhoids repeat 5 years RISK FACTORS FOR BREAST CANCER: Age at the onset of menses: 8 years of age. P: 0 Age at the of first child: Patient is nulliparous. Age at menopause: The patient underwent surgical menopause at age 36-37. Post-menopausal hormone therapy: No She is S/P total hysterectomy for severe bleeding. She has had a hysterectomy and does not use control. History of Mantle Radiation prior to the age of 28: No Obesity: Yes Body mass index is 25.79 kg/m . Current Weight: 155 lbs Mammographic density: The breasts are heterogeneously dense which limits the sensitivity of mammography Personal History of Benign Atypical Breast Biopsy: No Alcohol use: occasional PAST MEDICAL HISTORY: PAST MEDICAL HISTORY Diagnosis Date Alcohol abuse Anemia Back pain Blood dyscrasia Cervical spondylosis without myelopathy Cholecystitis 04/2020 Chronic hepatitis C (HCC) DDD (degenerative disc disease), lumbar Depression with anxiety Drug use 08/15/2018 ecstacy Emphysema of lung (HCC) Encounter for support and coordination of transition of care 05/15/2020 HOSPITAL/ER FOLLOW UP Which facility: [facility] Dates of visit: 05/10-05/13/2020 Preadmission evaluation: ER with right-sided abdominal pain over 2-1/2 hours, 10 out of 10. Worse with coughing. States she vomited 20 times the day before, with episodes of diarrhea over the past 2 days. Had used Imodium which improved diarrhea. No known exposures to Covid. Also identified chest pain which started a Encounter for support and coordination of transition of care 05/02/2021 Hospital discharge summary: Date of admission 05/01/2021 Date of discharge: Facility: [facility] 05/01/2021 presented to the emergency room with acute alcohol intoxication, initial alcohol level 7-8. Acknowledges over the last 5 months drinking 15 packs a day at 8% alcohol (natty daddy). Vital signs 96.6 F-78-18-111/73-98%. Appearance was no acute distress. WBC 7.9-Hgb 13.8-HCT 39 Encounter for support and coordination of transition of care 05/05/2022 05/05/2022 patient called squad, transported to [facility] with lightheadedness and multiple syncopal episodes one of them resulting in injury to her right foot. GERD (gastroesophageal reflux disease) Hyperglycemia Hypertension Lung abscess ([facility]) saw Néstor Li and Dr. Zarate. Major depression Mild protein-calorie malnutrition ([facility]) 08/26/2020 Obesity PE (pulmonary thromboembolism) ([facility]) PTSD (post-traumatic stress disorder) Snoring Tobacco use disorder Vasovagal syncope Patient specifically denies history of: osteopenia, and osteoporosis. She has a history of HTN, HLD, PE, hyperthyroidism and migraine headaches. JONAS w RSO for AUB. PAST SURGICAL HISTORY: PAST SURGICAL HISTORY Procedure Laterality Date CARPAL TUNNEL Left 09/2015 COLONOSCOPY 11/27/2021 COLONOSCOPY FLX DX W/COLLJ SPEC WHEN PFRMD several years ago Colonoscopy COLONOSCOPY FLX DX W/COLLJ SPEC WHEN PFRMD 10/02/2014 Colonoscopy ESOPHAGOGASTRODUODENOSCOPY TRANSORAL DIAGNOSTIC 10/02/2014 EGD HEART CATHETERIZATION 10/30/2013 normal coronary arteries HYSTERECTOMY HX 2004 menorrhagia. JONAS/right oophorectomy. bowel adhesion HYSTERECTOMY HX 1989' LAPAROSCOPY SURG CHOLECYSTECTOMY 05/12/2020 NEUROPLASTY &/TRANSPOS MEDIAN NRV CARPAL TUNNE Right 11/21/2015 Carpal tunnel decomp OVARIAN CYSTECTOMY UNI/BI 1996 left oophorectomy and 20# cyst PAST SURGICAL HISTORY OF 07/2012 Lumbar discectomy L3-L4 PAST SURGICAL HISTORY OF 09/2012 repeat lumbar surgery PAST SURGICAL HISTORY OF Right 12/2021 Wrist due to fracture (steel plate and 17 screws) SKIN GRAFT,SCALP,ARMS,LEGS 12/2013 bilateral posterior thigh autograft, fell in firepit TONSILLECTOMY & ADENOIDECTOMY <AGE 10 1979 SOCIAL HISTORY: Social History Tobacco Use Smoking status: Every Day Packs/day: 0.25 Years: 32.00 Additional pack years: 0.00 Total pack years: 8.00 Types: Cigarettes Smokeless tobacco: Never Tobacco comments: started smoking 12yr, 3 cigs daily Vaping Use Vaping Use: Never used Substance Use Topics Alcohol use: Not Currently Drug use: Yes Types: Marijuana Caffeine intake: 3 cups of coffee / day and 1/2 gallon of tea daily Exercise: Never FAMILY HISTORY: Family history of breast cancer: Maternal aunt at 50, (not from her breast cancer) Family history of ovarian cancer: Paternal cousin at 54, alive Number of sisters: 3 Number of maternal aunts: 1 Number of paternal aunts: 3 Ashkenazi Ancestry: no Other Cancer: Mother and 2 maternal uncles lung, all There is no family history of prostate, colon, uterine, pancreatic, gastric, brain, renal cell or thyroid cancer. There is no family history of melanoma, sarcoma or leukemia. Osteoporosis: None Stroke: Maternal grandmother Blood Clot: None Heart attack: Maternal grandmother Thyroid Nodule or Goiter: None Autism: None FAMILY HISTORY Problem Relation Age of Onset Hypertension Mother Cancer Mother lung, metastatic Heart Father Heart Maternal Grandmother Stroke Maternal Grandmother Colon Cancer No Family History MEDICATIONS: Cholecalciferol, Vitamin D3, (VITAMIN D) 25 mcg (1,000 unit) cap Take 1 capsule by mouth once daily. omeprazole (PRILOSEC) 20 mg capsule Take 1 capsule by mouth once daily. L.acidophilus-L.rhamnosus (FLORAJEN WOMEN) 15 billion cell capsule Take 1 capsule by mouth once daily. ibuprofen (MOTRIN) 800 mg tablet Take 1 tablet by mouth every 8 hours as needed for pain. Take with food. amLODIPine (NORVASC) 10 mg tablet Take 1 tablet by mouth once daily. budesonide-formoterol (SYMBICORT) 160-4.5 mcg/actuation inhaler Inhale 2 Puffs as instructed twice daily. oxybutynin ER (DITROPAN XL) 10 mg 24 hr tablet TAKE 1 TABLET BY MOUTH DAILY atorvastatin (LIPITOR) 40 mg tablet Take 1 tablet by mouth daily at bedtime. pregabalin (LYRICA) 150 mg capsule Take one pill three times per day mirabegron (MYRBETRIQ) 25 mg Tb24 Take 1 tablet by mouth once daily. thiamine (VITAMIN B1) 100 mg tablet Take 1 tablet by mouth once daily. tiotropium bromide (SPIRIVA RESPIMAT) 2.5 mcg/actuation inhaler Inhale 2 Puffs as instructed once daily. Blood Pressure Monitor 1 Each once daily. ICD 10 code I10 Blood Pressure Test Kit-Medium kit 1 Each once daily. metoprolol succinate ER (TOPROL XL) 50 mg 24 hr tablet Take 1 tablet by mouth once daily. cyanocobalamin (VITAMIN B-12) 1,000 mcg tab Take 1 tablet by mouth once daily. OLANZapine (ZYPREXA) 5 mg tablet Take 1 tablet by mouth once daily. buPROPion XL (WELLBUTRIN XL) 150 mg 24 hr tablet Take 1 tablet by mouth once daily. traZODone (DESYREL) 150 mg tablet Take 1 tablet by mouth at bedtime as needed. WALKER ROLLATOR SEAT WITH 6 WHEELS - RED For daily use. M54.40, G89.29 Chronic left-sided low back pain with sciatica, sciatica laterality unspecified (primary encounter diagnosis) M51.36 DDD (degenerative disc disease), lumbar M47.816 Lumbar spondylosis R26.81 Gait instability albuterol HFA (VENTOLIN HFA) 90 mcg/actuation inhaler Inhale 2 Puffs as instructed every 4 hours as needed for wheezing/shortness of breath. ferrous sulfate 325 mg (65 mg iron) tablet Take 1 tablet by mouth twice daily. VITAMIN C 500 mg tablet albuterol (PROVENTIL) 2.5 mg /3 mL (0.083 %) nebulizer solution Use 3 mL via nebulizer every 4 hours as needed for wheezing/shortness of breath. Use over 5-15minutes. Nebulizers Use as directed. levothyroxine (SYNTHROID) 25 mcg tablet Take 25 mcg by mouth daily before breakfast. COMPOUNDED PRESCRIPTION Standard size Rollator Walker #1 Dx Large Blood Pressure Cuff #1 M51.36 DDD (degenerative disc disease), lumbar (primary encounter diagnosis) I10 Essential hypertension COMPOUNDED PRESCRIPTION ADJUSTABLE CANE DX M51.36 ALLERGIES: ALLERGIES Allergen Reactions Fentanyl Other: See Comments PATCH ONLY. Respiratory distress due to rapid absorption. Chantix [Vareniclin* Intolerance hallucinations REVIEW OF SYSTEMS: The patient specifically denies unintentional weight loss, hot flashes, night sweats, abnormal swelling in the arms or legs, chest pain, shortness of breath, persistant cough, heartburn, urinary incontinence. She reports insomnia, vaginal dryness, decreased libido, severe headaches and RUQ abdominal pain. PHYSICAL EXAM: Ht 165.1 cm (5' 5 ) Wt 70.3 kg (155 lb) BMI 25.79 kg/m General: well-nourished, female, alert and oriented x 3, calm Skin: warm, dry, skin color, texture, turgor normal Head/Eyes: normocephalic, atraumatic, and anicteric Breasts and Regional Lymph Nodes: The patient was examined in the upright and supine positions. There is no concerning supraclavicular, infraclavicular or axillary lymphadenopathy. The breasts are symmetrical in appearance without visible skin or nipple changes. There are no dominant breast masses or nipple discharge bilaterally. The breasts were tender bilaterally in the upper outer region with left breast more diffusely tender than the right. There was mild to moderate fibrocystic change throughout. IMAGING: Deferred The breasts are heterogeneously dense which limits the sensitivity of mammography. Assessment IMPRESSION/PLAN: Mariluz Garcia is a 52 year old year old female with bilateral fibrocystic change, mastodynia , and increased risk for breast cancer due to family history. There is no evidence of malignancy. The patient was reassured as to the benign nature of her clinical findings and the benign nature of her diagnostic imaging from 08/2022. She is at intermediate risk for the development of breast cancer. She does not meet criteria for enhanced surveillance with MRI at this time. For her pain recommended decreasing her caffeine intake, getting re-fitted for a bra, and using voltaren gel as needed. We also discussed the importance of smoking cessation and she reports she has cut down recently from 1.5ppd to 3-5 cigarettes per day and is going to continue working towards complete cessation. Genetics referral made: Yes: Reason: Her affected maternal aunt is and she is not in contact with her paternal cousin with ovarian cancer. Would typically recommend her mother get tested but she is . Chemoprevention discussion: She would not be a good candidate for a SERM therapy because she has a history of a blood clot, a TIA, and is current smoker . The patient is advised to exercise regularly, achieve/maintain ideal body weight, and to limit alcohol consumption to less than 7 drinks weekly for breast cancer risk reduction and overall health. She will return in 3 months (May 2023) for follow-up evaluation of her breast pain. She will call me in the interim should she have any questions or concerns. My final recommendations will be communicated back to the requesting physician by way of shared medical record or letter via US mail. I spent a total of 45 minutes minutes on the date of the service which included preparing to see the patient, [id number] patient care, completing clinical documentation, obtaining and/or reviewing separately obtained history, performing a medically appropriate examination, counseling and educating the patient/family/caregiver, ordering medications, tests, or procedures, communicating with other HCPs (not separately reported), independently interpreting results (not separately reported), communicating results to the patient/family/caregiver, and care coordination (not separately reported). Carmelita Ragsdale MD Medical Breast Specialist February 14, 2023 CC: Jenifer Yeager [address] [facility] [address] [address] [place] [address] documented in this encounter [facility] 02-14-2023 Miscellaneous Notes TC to pt who voiced understanding. Of results below. Jenifer Ngo LPN ----- Message from Urvashi Hughes APRN.SENIOR CONTRACTS ADMINISTRATOR sent at 02/14/2023 7:30 AM EDT ----- EEG is normal and does not show any evidence of seizure activity. documented in this encounter [facility] 02-09-2023 Note HNO ID: [id number] Author: Ibeth Albert PA-C Service: ? Author Type: Physician Protection Specialist Type: Progress Notes Filed: 02/09/2023 11:04 AM Note Text: Ib[facility] [address] [place] [address] 02/09/2023 ASSESSMENT AND PLAN: Assessment : Encounter Diagnosis ICD-10-CM 1. Lumbar radiculopathy M54.16 CONSULT TO PHYSICAL THERAPY XR LUMBAR MOTION 4V AP/LAT/ FLEX/EXT 2. Primary osteoarthritis of right hip M16.11 CONSULT TO PHYSICAL THERAPY XR LUMBAR MOTION 4V AP/LAT/ FLEX/EXT Discussion: Ms. Garcia is a 52-year-old female here for evaluation of her low back. She was initially sent for orthopedic evaluation of her RIGHT hip with a diagnosis of primary OA, but she was given an appointment here for her spine and she decided to go forward with that. He has had prior lumbar decompression surgery and believes it to have been done at the L4-5 level. This was back in 2012 or 2013 outside of [facility]. She has had intermittent LEFT lower extremity radiating symptoms ever since. She had a lumbar MRI scan completed in May 2021 but she feels that her symptoms have changed and worsened since then. She has been treated by Dr. Ulloa and Allie Sapp for pain management in 2018 and had injections by Dr. Deloris Troy in pain management, with most recent lumbar injection in February 2022. She indicates that she only got a small percentage of very temporary relief from that injection. She has also been treated by pain management with injections for cervical facet arthrosis EXAM Highlights: She is slow to mobilize from sitting to standing posture and uses a cane in her right hand leaning on it fairly heavily. She does not stand up straight and has a gait that strongly favors the left leg. She cannot straighten out her left knee describing moderately severe posterior buttock and thigh pain, comprising a positive SLR on that side She has difficulties with stability in standing and walking and balance is quite poor. There appears to be some motor deconditioning without severe focal weakness as noted below Lumbar motion cannot be fully tested due to her instability on her feet Low back pain is severe over lumbosacral junction and multiple tender points across the posterior pelvis IMAGING: May 2021 lumbar MRI scan was reviewed with her in detail during today's visit. She has what appears to be foraminal narrowing on the left at L5-S1 but no other severe nerve narrowing. SUMMARY/PLAN: She had follow-up visit after her 2020 lumbar MRI scan where she recounts that she was told that surgery was not indicated. She is taking quite a number of different meds at relatively high doses including ibuprofen, Tylenol, Lyrica and she is asking for additional medication today to help me get through until I get my testing done and find out if I can get a spinal cord stimulator . We will proceed with conservative management including x-rays and PT first. If symptoms fail to resolve, I would recommend repeat MRI scan without and with contrast She may be a candidate for consideration of spinal cord stimulation versus surgical treatment once those studies and treatment is complete. Plan : DIAGNOSTIC TESTING: -X-ray views will be obtained to better evaluate bony structures. -Dynamic plain radiographs of the Lumbar spine are ordered. REFERAL FOR SERVICES: -Physical therapy will be instituted. MEDICATIONS: -Current medication regimen is appropriate for this problem. ACTIVITY RECOMMENDATIONS: -The patient is encouraged to avoid bed rest and maintain normal activity. FOLLOW-UP: -The patient is instructed to follow up after studies are complete. -The patient is instructed to return after six weeks of therapy. This document has been created with the use of voice recognition technology. It may contain inaccuracies: (e.g. misspellings, inaccurate syntax or word sense) that have escaped review. Time spent: 50 minutes today with this patient visit. This includes ulje-ow-cvre time, review of chart records regarding conservative care history, spine-pertinent imaging, and communication/care coordination with referring provider, problem-specific history-taking and counseling/education regarding treatment options. cc: Jaimee Palomares [address] [place] [address] Results of consultation to be transmitted via electronic medical record for those providers who practice within [facility] or with access to [employer] via MD Connect, or via letter. ################################# ################################# ###### CHIEF COMPLAINT: Lower back pain HPI: see Discussion above History of bowel or bladder dysfunction (not IBS or constipation): Yes, urgency and incontinence. (more content not included)... [facility] 02-07-2023 Miscellaneous Notes Pharmacy requesting refill of pended medications. Requested Prescriptions Pending Prescriptions Disp Refills Cholecalciferol, Vitamin D3, (VITAMIN D) 25 mcg (1,000 unit) cap 90 capsule 1 Sig: Take 1 capsule by mouth once daily. omeprazole (PRILOSEC) 20 mg capsule 30 capsule 5 Sig: Take 1 capsule by mouth once daily. Last encounter with this provider: 01/04/2023 Next appt: 06/10/2023 Fadumo Romero RN documented in this encounter [facility] 02-02-2023 Miscellaneous Notes I called patient regarding her upcoming new patient appointment on 02/14/[address] Ragsdale. She was referred by her MEDICAL ASSISTANT INSTRUCTOR Jenifer Yeager APRN. CNP for dense breasts and left breast pain. (Heterogeneously dense) She is complaining of LT breast pain, burning sensation that has been going on for about 4 months. She states it comes and goes. No nipple discharge. Last breast imaging: Mammogram JASPER diagnostic with LT breast ultrasound done on 09/01/2022 and was normal and to return to annual. Breast cancer: Maternal aunt in 50's, (unknown of genetic testing being done.) Ovarian cancer: Paternal cousin age 54, alive (unknown of genetic testing being done.) I reminded patient of appointment time and location and asked for her to arrive 15-20 minutes early for paperwork. Bria Burton MA documented in this encounter [facility] 01-31-2023 Miscellaneous Notes In review of patient chart, all below have been scheduled. Nothing further at this time. BETTY Fernandez TC to patient who verbalized understanding of providers message below with no questions at this time. Patient is asking that a appointment scheduler contact her to assist with rescheduling her cancelled EEG as well as to set her up with the ordered Neuropsychological Testing ordered at [facility]. Please contact patient and assist with above. Thank you!. BETTY Fernandez ----- Message from Urvashi Hughes APRN.SENIOR CONTRACTS ADMINISTRATOR sent at 01/27/2023 7:44 AM EDT ----- Please let pt know her MRI of the brain does not show any new changes or concerns. Results are unchanged since her previous image in 03/2022. No findings to explain her recent symptoms. documented in this encounter [facility] 01-31-2023 Miscellaneous Notes Patient has been identified by name and date of : Yes Last office visit in this department: 10/20/2022 RX INSTRUCTIONS: Patient aware RX will be sent to pharmacy. No need to notify patient. Patient phones requesting refills as follows: Requested Prescriptions Pending Prescriptions Disp Refills L.acidophilus-L.rhamnosus (FLORAJEN WOMEN) 15 billion cell capsule 30 capsule 1 Sig: Take 1 capsule by mouth once daily. Please review and advise. Fadumo Castañeda documented in this encounter [facility] 01-28-2023 Miscellaneous Notes Refill request: Requested Prescriptions Pending Prescriptions Disp Refills ibuprofen (MOTRIN) 800 mg tablet 30 tablet 1 Sig: Take 1 tablet by mouth every 8 hours as needed for pain. Take with food. amLODIPine (NORVASC) 10 mg tablet 90 tablet Sig: Take 1 tablet by mouth once daily. Last encounter with this provider: 01/04/2023 Next appt: 06/10/2023 Fadumo Romero RN documented in this encounter [facility] 01-26-2023 Note HNO ID: [id number] Author: Bharti Gant RT(R) Service: ? Author Type: Technologist Type: Progress Notes Filed: 01/26/2023 11:39 AM Note Text: Radiology Service Progress Note PATIENT NAME: Mariluz Garcia DATE OF SERVICE: January 26, 2023 TIME: 11:39 AM PATIENT IDENTITY VERIFICATION COMPLETED USING TWO (2) IDENTIFIERS: Name and Date of confirmed by patient verbally. FALL SCREENING: Has the patient had 2 falls in the last year or 1 fall with injury or currently using an Ambulatory Assistive Device (Walker, Cane, Wheelchair, Crutches, etc.)? Yes, Patient High Risk for Falls What interventions were put in place to prevent falls during this visit? Instructed Patient to Call for Help if Needed, Offered Assistance with Transfers/Clothing, Instructed Patient to Remain Seated (Not on Exam Table) Until Exam, and Increased Observations by Caregivers PATIENT GENDER DATA: Female. status: : No status: NO. PATIENT RELEVANT IMPLANT DATA REVIEWED: Yes RADIOLOGY DEPARTMENT: MR; Exam(s) Completed: Head: Routine Brain PERIPHERAL IV DATA: Not applicable SIGNED BY: RT Benson(R) January 26, 2023 11:39 AM [facility] 01-26-2023 History of Present illness Narrative Radiology Service Progress Note PATIENT NAME: Mariluz Garcia DATE OF SERVICE: January 26, 2023 TIME: 11:39 AM PATIENT IDENTITY VERIFICATION COMPLETED USING TWO (2) IDENTIFIERS: Name and Date of confirmed by patient verbally. FALL SCREENING: Has the patient had 2 falls in the last year or 1 fall with injury or currently using an Ambulatory Assistive Device (Walker, Cane, Wheelchair, Crutches, etc.)? Yes, Patient High Risk for Falls What interventions were put in place to prevent falls during this visit? Instructed Patient to Call for Help if Needed, Offered Assistance with Transfers/Clothing, Instructed Patient to Remain Seated (Not on Exam Table) Until Exam, and Increased Observations by Caregivers PATIENT GENDER DATA: Female. status: : No status: NO. PATIENT RELEVANT IMPLANT DATA REVIEWED: Yes RADIOLOGY DEPARTMENT: MR; Exam(s) Completed: Head: Routine Brain PERIPHERAL IV DATA: Not applicable SIGNED BY: RT Benson(R) January 26, 2023 11:39 AM documented in this encounter [facility] 01-14-2023 Miscellaneous Notes Letter written. Does she need to cancel her injection in [place] on 01/19? Deloris Troy III, [place], [place] Patient has called in asking for a release of care from our office as she will be going to a different Pain Management. She will also be going to the [place] office on to fill out the medical records release form. Please advise. Laura Villegas documented in this encounter [facility] 01-06-2023 Miscellaneous Notes Patient has been identified by name and date of : Yes, Hanna Mares RN Date 01/06/2023 Time 3:11 pm Pharmacy phones for refill(s): Requested Prescriptions Pending Prescriptions Disp Refills budesonide-formoterol (SYMBICORT) 160-4.5 mcg/actuation inhaler 1 Each 5 Sig: Inhale 2 Puffs as instructed twice daily. Date of last office visit with pcp: 01/04/2023 Future appt: 06/10/2023 Last 2 Encounter Wt Readings: Date: Wt: 01/04/2023 71.2 kg (157 lb) 12/16/2022 64 kg (141 lb 3.2 oz) Previous labs/tests for medication: Blood Pressure: BUN (mg/dL) Date Value 03/09/2022 9 11/05/2019 13 Sodium (mmol/L) Date Value 03/09/2022 139 11/05/2019 137 Last 1 Encounter BP Readings: Date: BP: 01/04/2023 132/80 Please advise. Thank you. Hanna Mares RN documented in this encounter [facility] 01-05-2023 Miscellaneous Notes I don't have another option. Continue until see Dr. Staley and then we will discuss. The following approved medication requests have been transmitted electronically. Requested Prescriptions Signed Prescriptions Disp Refills atorvastatin (LIPITOR) 40 mg tablet 30 tablet 5 Sig: Take 1 tablet by mouth daily at bedtime. Authorizing Provider: Jaimee PALOMARES pregabalin (LYRICA) 150 mg capsule 90 capsule 5 Sig: Take one pill three times per day Authorizing Provider: Jaimee PALOMARES mirabegron (MYRBETRIQ) 25 mg Tb24 30 tablet 5 Sig: Take 1 tablet by mouth once daily. Authorizing Provider: Jaimee PALOMARES thiamine (VITAMIN B1) 100 mg tablet 30 tablet 5 Sig: Take 1 tablet by mouth once daily. Authorizing Provider: Jaimee PALOMARES tiotropium bromide (SPIRIVA RESPIMAT) 2.5 mcg/actuation inhaler 1 Each 5 Sig: Inhale 2 Puffs as instructed once daily. Authorizing Provider: Jaimee PALOMARES PA-C Talked to patient and she states that she doesn't believe Lyrica is working for her any longer but was hesitant to stop. Discussed that only was to know if she is benefiting would be to try to go without it. She could then go back on it if realizes that was working for her. She then asks about something in place of Lyrica. Advised that she only way to even consider having something in place would be to get off Lyrica. Patient verbalizes understanding. Advised her to be sure to read her medication instructions when they come for taper instructions. Please clarify lyrica request. She said to day it provides no relief. If it is not beneficial we should taper and discontinue. Faustino Strickland PA-C Patient has been identified by name and date of : Yes, Provider PAWAN Diane Date 01/03/23 Time 8:58 am Pharmacy phones for refill(s): Requested Prescriptions Pending Prescriptions Disp Refills atorvastatin (LIPITOR) 40 mg tablet 90 tablet 1 Sig: Take 1 tablet by mouth daily at bedtime. pregabalin (LYRICA) 150 mg capsule 90 capsule 5 Sig: Take one pill three times per day mirabegron (MYRBETRIQ) 25 mg Tb24 30 tablet 5 Sig: Take 1 tablet by mouth once daily. thiamine (VITAMIN B1) 100 mg tablet 30 tablet 5 Sig: Take 1 tablet by mouth once daily. tiotropium bromide (SPIRIVA RESPIMAT) 2.5 mcg/actuation inhaler 1 Each 5 Sig: Inhale 2 Puffs as instructed once daily. Date of last office visit in primary care: 12/09/22 next apt 01/04/23 Last 2 Encounter Wt Readings: Date: Wt: 12/16/2022 64 kg (141 lb 3.2 oz) 12/09/2022 71.7 kg (158 lb) Previous labs/tests for medication: Cholesterol: HDL Cholesterol (mg/dL) Date Value 02/13/2019 80 LDL Cholesterol (mg/dL) Date Value 02/13/2019 56 ALT (U/L) Date Value 03/09/2022 17 11/25/2021 16 11/05/2019 59 Non HDL Cholesterol (mg/dL) Date Value 02/13/2019 70 Thank you. Sruthi Piña LPM documented in this encounter [facility] 01-04-2023 Note HNO ID: [id number] Author: Jaimee Palomares PA-C Service: ? Author Type: Physician Protection Specialist Type: Progress Notes Filed: 01/05/2023 1:49 PM Note Text: 52 year old female with c/o ER hospital follow-up 12/29/2022 presented to [facility] emergency department with complaint of diffuse headache, gradual, onset prior night with intermittent lightheadedness persistent through the morning. Check blood pressure at home states the systolic pressure 212/100. Was told to come in to ER through medical provider contact. Patient took an extra dose of metoprolol which seemed to make her symptoms feel better. She stated that she had been having difficulty drawing and breath from the records but no reports of dyspnea or symptoms of angina. Patient also complained of chronic low back pain which was worse since she the day prior. Fell on her right hip, radiating to her groin and buttock from records. Vital signs 97.8-67-18-160/116-97% RA. Recheck blood pressure 142/98. Exam was essentially normal though it was identified that she had pain with internal and external rotation of the hip and is tender over the greater trochanter and with attempts to weight-bear. Pelvis was stable on compression. Diagnostics: X-ray hip/pelvis was read as suspected nondisplaced impacted subcapital fracture of the right subcapital region. CT extremity demonstrated moderate to severe right hip osteoarthrosis, no evidence of acute osseous injury. Subcapital sclerosis on radiograph correlates with overhanging osteophytes. Note made of the circumferential bladder wall thickening possibly related to lack of distention BMP abnormals: Sodium 134-anion gap 3-BUN 22 with normal creatinine of 0.87, BUN/creatinine ratio 25.3, otherwise normal. EKG showed normal sinus rhythm No treatment was given for blood pressure which came down as she rested. Patient was discharged with prescription for hydrocodone acetaminophen 5-3 25 #10/0 1 p.o. every 6 hours. Taking amlodipine 10mg as directed. BP cuff from home machine doesn't fit. No new lightheaded or dizziness. Sometimes feels might pass out, lays or sits down Loses balance a lot. Wobbly. Fell a couple weeks ago, hitting right hip, prior to ER visit. Was able to walk and bear weight after. Persistent headache, 8-9, pain in neck with popping on turning. Sick and tired of being in pain all the time Failed to make last pain management appointment due to lack of transportation. States pregabalin 150mg does even touch pain. Patient has follow-up appointment with Dr. Agrawal, disappointed in the care that she has received. States all he wants to do her injections which do not seem to last very long minimally helped. States she feels that she needs something routinely for pain and is angry that no one is willing to provide this, if narcotics would ease her pain she wants to be treated. Patient has scheduled an outside consult with Dr. Juno Staley pain management next month and will keep appointment depending on what she finds out with her next appointment here with pain management. Patient was somewhat contemplative about pain management, again pressing many times that she is not being adequately treated. HISTORIES FAMILY HISTORY Problem Relation Age of Onset Hypertension Mother Cancer Mother lung, metastatic Heart Father Heart Maternal Grandmother Stroke Maternal Grandmother Colon Cancer No Family History PAST MEDICAL HISTORY Diagnosis Date Alcohol abuse Anemia Back pain Blood dyscrasia Cervical spondylosis without myelopathy Cholecystitis 04/2020 Chronic hepatitis C (HCC) DDD (degenerative disc disease), lumbar Depression with anxiety Drug use 08/15/2018 ecstacy Emphysema of lung (HCC) Encounter for support and coordination of transition of care 05/15/2020 HOSPITAL/ER FOLLOW UP Which facility: [facility] Dates of visit: 05/10-05/13/2020 Preadmission evaluation: ER with right-sided abdominal pain over 2-1/2 hours, 10 out of 10. Worse with coughing. States she vomited 20 times the day before, with episodes of diarrhea over the past 2 days. Had used Imodium which improved diarrhea. No known exposures to Covid. Also identified chest pain which started a Encounter for support and coordination of transition of care 05/02/2021 Hospital discharge summary: Date of admission 05/01/2021 Date of discharge: Facility: [facility] 05/01/2021 presented to the emergency room with acute alcohol intoxication, initial alcohol level 7-8. Acknowledges over the last 5 months drinking 15 packs a day at 8% alcohol (marcin samaniego). Vital signs 96.6 F-78-18-111/73-98%. Appearance was no acute distress. WBC 7.9-Hgb 13.8-HCT 39 Encounter for support and coordination of transition of care 05/05/2022 05/05/2022 patient called squad, transported to [facility] with lightheadedness and multiple syncopal episodes (more content not included)... [facility] 01-03-2023 Miscellaneous Notes Patient called requesting the following refill. Requested Prescriptions Pending Prescriptions Disp Refills oxybutynin ER (DITROPAN XL) 10 mg 24 hr tablet [Pharmacy Med Name: Oxybutynin Chloride ER 10MG TB24] 30 tablet 11 Sig: TAKE 1 TABLET BY MOUTH DAILY Patient last appointment: 11/05/2022 Patient Phone numbers: [phone] (home) Request is for script(s) to be escript to pharmacy. Vu Moura Ma documented in this encounter [facility] 12-23-2022 Miscellaneous Notes Patient has been cancelled for the TPI and scheduled for the other procedures. Laura Villegas Addended by: DELORIS TROY on: 12/23/2022 01:59 PM Modules accepted: Orders MRI shows new large left-sided L5-S1 disc herniation. Will plan epidural and Electrodiagnostic Study. Deloris Troy III, [place], [place] Please advise on how you would like to proceed. Laura Villegas Patient Last Name JOSE Patient First Name MARILUZ Date of 1970 Clinical Clearance / Financial Clearance Status Pending Clinical Clearance Notifications are supported by our hira policy and used when an immediate payer source is not available. The CCN process can allow cases to be completed while still working to obtain payer s authorization due to urgency or medical necessity. This process should not preclude us from completing the steps needed to secure authorization such us P2P and appeal as this will still allow us to receive the appropriate reimbursement. Denial Overview Denial Type Payer Clinical Guidelines Not Met Denial Rationale Your request for pain shots (trigger point injections) cannot be approved. You are 52 years old. You have chronic neck pain. Notes do not show you tried and did not get better from other treatments. They also do not show what medicine will be in the shots. Notes do not show the number or frequency of shots. This request does not meet the guidelines.Guidelines used: [place] Administrative Code Rule 5160-4-12 Immunizations, injections and infusions (including trigger-point injections), skin substitutes, and provider-administered pharmaceuticals; [place] Administrative Code 5160-1-01; [facility] Trigger Point Injections (MM-0011) Date of Service 01/13/23 Is Peer to Peer Available? (Instructions below) Yes Peer to Peer Deadline Until (5 business days) Appeal Deadline (Instructions below) 180 calendars days from 12/18/22 Insurance Case Information Insurance Name Jv Patient's Insurance Case# [id number] Ordering Provider DELORIS TROY Approved Services Denied Services 12128 (CPT ) - TRIGGER POINT INJECTION MULTI 3+ MUSCLE GRP Alternative Recommendation N/A *Service which can be approved in place of denied service. Clinical Documentation Provided Peer to Peer Instructions Peer to Peer opt 1 Does Peer to Peer need to be scheduled? Yes, by leaving a voice mail requesting a call back. Who can complete the Peer to Peer? Dr, PA, [employer]ER, LN Additional Peer to Peer Instructions You can call for the peer to peer at the date and time of your convenience Appeal Instructions Appeal Address N/A Appeal Required Form(s) Yes, Please see attached. Additional Appeal Instructions Send it attention to: Appeals department and include: coversheet with patient's and case information, a formal appeal letter and attach any pertinent supporting clinical documentation. Also, provider and member's consent forms are required for appeal submission. Facility Information Location [facility] [id number] Tax ID# [id number] documented in this encounter [facility] 12-16-2022 Miscellaneous Notes No Show Documentation Mariluz Garcia no showed for an appointment on 12/16/2022 with Bharti Diaz APRN.CNP at 2pm. She was scheduled for an office visit. I called the patient regarding her missed appointment. . Resources discussed/offered to patient: NA No show determined to be fault of patient: N/A This is the patients first no show in the last 12 months. Patient was rescheduled for NA. Letter mailed : Yes Is this the Third or Fourth No Show ? No Aleida Auguste December 16, 2022 2:28 PM documented in this encounter [facility] 12-16-2022 Note HNO ID: [id number] Author: Urvashi Hughes APRN.CNP Service: ? Author Type: Nurse Practitioner Type: Progress Notes Filed: 12/16/2022 1:17 PM Note Text: [facility] [place] Follow-up Visit Follow-up note December 16, 2022 HPI: Ms. Garcia presents today for a follow-up visit. 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 MRI brain and TSH both unremarkable. Concern at time of previous appointment that metabolic derangements, pseudodementia, polypharmacy and medication noncompliance, EtOH use, and polysubstance abuse potentially all contributing to symptoms. Additional blood work completed since time of previous appointment with finding of low normal B12 level. She has since started supplementation with report of increased energy. Patient fidgeting/restless throughout exam, however, exam essentially unremarkable with exception of imbalance with tandem walk. She does report significant LLE pain and typically uses a cane when ambulating. Unable to assess hip flexion as patient reports pain on exam. Otherwise, strength intact throughout. No nystagmus noted on exam. MoCA completed today with score of 28/30 (points missed on drawing). At this time would recommend continued follow up with psychiatry as well as cessation of both ETOH and drug use. Also recommend continuing to follow with providers to attempt to reduce the number of medications that may lead to sedation or confusion. Despite minimal decline in MOCA score pt reports progressive decline of memory at home and therefore will have her follow up in three months for repeat MOCA and evaluation. If at that time sx remain stable she can then follow up prn. If further decline may consider formal neurocognitive testing. Since August memory has been exactly the same. Some things stick and some things don't. States no specific trick to make things stick. Has been having more headaches. Feels this is due to her anxiety which has been increased. States she has a breast mass and there is concern for BC. Recently adjusted medications. Not forgetting names. States she is seeing things. Flashes of people walking by. Sometimes sees children. Can happen at any time during the day or night. States this has been happening more often since stopping some of her psych medications. Was taken off Prozac. Follows through a counseling center. States this has only been going on since she stopped the medication. This was about three months ago. Had hallucinations prior to this but they stopped after starting her medications. Has incontinence; not new and getting better. States she was overweight and had pressure on the bladder. Happens at night. Wearing depends. No convulsions or seizure activity. Can have staring episodes. Increased vistaril yesterday at psychiatry visit. Reports blurred vision. Did not take BP medication this morning. Has been using walker at home. Has fallen five times over the past year. Then states 4-5 times since last OV. States balance has been off since June. Hurt her hip and hit her head. Does not feel like falls are related to her left leg. No hx of seizures. No hx of migraines. Has been taking Tylenol daily, ibuprofen, and lyrica daily. Denies ETOH use. Sober about one year. Smokes cigarettes and marijuana. MOCA 08/26/22 Visuospatial/exec (5-5) incorrect dots, cube, numbers (2/5) Naming (0-3) (3/3) Memory Words, up to 2 trials: Face, Velvet, Sabianist, Yudith, Red (no points) 5/5 first try, 5/5 second try Attention forwards: 2 1 8 5 4 (0-1) (06/20) Attention backwards: 7 4 2 (0-1) (06/20) Tap for the A : F B A C M N A A J K L B A F A K D E A A A J A M O F A A B (1 point if 0 or 1 error) (06/20) Serial subtraction by 7: [id number] (3 points for correct 4 or 5; 2 points for 2 or 3 correct; 1 point for 1 correct) [id number] (/) Language: repeat: I only know that Laith is the one to help today (0-1) (06/20) Language: repeat: The cat always hid under the couch when dogs were in the room (0-1) (06/20) Fluency: max words beginning with the letter F (1 point if 11 or more words) lllll lllll l (06/20) Abstraction: practice banana-orange=fruit. Then train-bicycle (1) AND watch-ruler (1) total: (2) (2/2) Delayed recall: recall words: face, velvet, worship, yudith, red (0-5) (4/5) Orientation: date(1), month(1), year(1), day(1), place(1), city(1) max 6 points (6/6) Level of education: add 1 if did not receive more than a HS education +1 Total Score max 30 (+1) (27) PAST MEDICAL HISTORY Diagnosis Date Alcohol abuse Anemia Back pain Blood dyscrasia Cervical spondylosis without myelopathy Cholecystitis 04/2020 Chronic hepatitis C (HCC) DDD (degenerative di (more content not included)... [facility] 12-16-2022 History of Present illness Narrative Images from the original note were not included. [facility] [place] Follow-up Visit Follow-up note December 16, 2022 HPI: Ms. Garcia presents today for a follow-up visit. 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 MRI brain and TSH both unremarkable. Concern at time of previous appointment that metabolic derangements, pseudodementia, polypharmacy and medication noncompliance, EtOH use, and polysubstance abuse potentially all contributing to symptoms. Additional blood work completed since time of previous appointment with finding of low normal B12 level. She has since started supplementation with report of increased energy. Patient fidgeting/restless throughout exam, however, exam essentially unremarkable with exception of imbalance with tandem walk. She does report significant LLE pain and typically uses a cane when ambulating. Unable to assess hip flexion as patient reports pain on exam. Otherwise, strength intact throughout. No nystagmus noted on exam. MoCA completed today with score of 28/30 (points missed on drawing). At this time would recommend continued follow up with psychiatry as well as cessation of both ETOH and drug use. Also recommend continuing to follow with providers to attempt to reduce the number of medications that may lead to sedation or confusion. Despite minimal decline in MOCA score pt reports progressive decline of memory at home and therefore will have her follow up in three months for repeat MOCA and evaluation. If at that time sx remain stable she can then follow up prn. If further decline may consider formal neurocognitive testing. Since August memory has been exactly the same. Some things stick and some things don't. States no specific trick to make things stick. Has been having more headaches. Feels this is due to her anxiety which has been increased. States she has a breast mass and there is concern for BC. Recently adjusted medications. Not forgetting names. States she is seeing things. Flashes of people walking by. Sometimes sees children. Can happen at any time during the day or night. States this has been happening more often since stopping some of her psych medications. Was taken off Prozac. Follows through a counseling center. States this has only been going on since she stopped the medication. This was about three months ago. Had hallucinations prior to this but they stopped after starting her medications. Has incontinence; not new and getting better. States she was overweight and had pressure on the bladder. Happens at night. Wearing depends. No convulsions or seizure activity. Can have staring episodes. Increased vistaril yesterday at psychiatry visit. Reports blurred vision. Did not take BP medication this morning. Has been using walker at home. Has fallen five times over the past year. Then states 4-5 times since last OV. States balance has been off since June. Hurt her hip and hit her head. Does not feel like falls are related to her left leg. No hx of seizures. No hx of migraines. Has been taking Tylenol daily, ibuprofen, and lyrica daily. Denies ETOH use. Sober about one year. Smokes cigarettes and marijuana. MOCA 08/26/22 Visuospatial/exec (5-5) incorrect dots, cube, numbers (2/5) Naming (0-3) (3/3) Memory Words, up to 2 trials: Face, Velvet, Sabianist, Yudith, Red (no points) 5/5 first try, 5/5 second try Attention forwards: 2 1 8 5 4 (0-1) (06/20) Attention backwards: 7 4 2 (0-1) (06/20) Tap for the A : F B A C M N A A J K L B A F A K D E A A A J A M O F A A B (1 point if 0 or 1 error) (06/20) Serial subtraction by 7: [id number] (3 points for correct 4 or 5; 2 points for 2 or 3 correct; 1 point for 1 correct) [id number] (3/3) Language: repeat: I only know that Laith is the one to help today (0-1) (06/20) Language: repeat: The cat always hid under the couch when dogs were in the room (0-1) (06/20) Fluency: max words beginning with the letter F (1 point if 11 or more words) lllll lllll l (06/20) Abstraction: practice banana-orange=fruit. Then train-bicycle (1) AND watch-ruler (1) total: (2) (2/2) Delayed recall: recall words: face, velvet, worship, yudith, red (0-5) (5) Orientation: date(1), month(1), year(1), day(1), place(1), city(1) max 6 points (11/23) Level of education: add 1 if did not receive more than a HS education +1 Total Score max 30 (+1) (27) PAST MEDICAL HISTORY Diagnosis Date Alcohol abuse Anemia Back pain Blood dyscrasia Cervical spondylosis without myelopathy Cholecystitis 04/2020 Chronic hepatitis C (HCC) DDD (degenerative disc disease), lumbar Depression with anxiety Drug use 08/15/2018 ecstacy Emphysema of lung (HCC) Encounter for support and coordination of transition of care 05/15/2020 HOSPITAL/ER FOLLOW UP Which facility: [facility] Dates of visit: 05/10-05/13/2020 Preadmission evaluation: ER with right-sided abdominal pain over 2-1/2 hours, 10 out of 10. Worse with coughing. States she vomited 20 times the day before, with episodes of diarrhea over the past 2 days. Had used Imodium which improved diarrhea. No known exposures to Covid. Also identified chest pain which started a Encounter for support and coordination of transition of care 05/02/2021 Hospital discharge summary: Date of admission 05/01/2021 Date of discharge: Facility: [facility] 05/01/2021 presented to the emergency room with acute alcohol intoxication, initial alcohol level 7-8. Acknowledges over the last 5 months drinking 15 packs a day at 8% alcohol (natty daddy). Vital signs 96.6 F-78-18-111/73-98%. Appearance was no acute distress. WBC 7.9-Hgb 13.8-HCT 39 Encounter for support and coordination of transition of care 05/05/2022 05/05/2022 patient called squad, transported to [facility] with lightheadedness and multiple syncopal episodes one of them resulting in injury to her right foot. GERD (gastroesophageal reflux disease) Hyperglycemia Hypertension Lung abscess ([facility]) saw Néstor Li and Dr. Zarate. Major depression Mild protein-calorie malnutrition ([facility]) 08/26/2020 Obesity PE (pulmonary thromboembolism) ([facility]) PTSD (post-traumatic stress disorder) Snoring Tobacco use disorder Vasovagal syncope PAST SURGICAL HISTORY Procedure Laterality Date CARPAL TUNNEL Left 09/2015 COLONOSCOPY 11/27/2021 COLONOSCOPY FLX DX W/COLLJ SPEC WHEN PFRMD several years ago Colonoscopy COLONOSCOPY FLX DX W/COLLJ SPEC WHEN PFRMD 10/02/2014 Colonoscopy ESOPHAGOGASTRODUODENOSCOPY TRANSORAL DIAGNOSTIC 10/02/2014 EGD HEART CATHETERIZATION 10/30/2013 normal coronary arteries HYSTERECTOMY HX 2004 menorrhagia. JONAS/right oophorectomy. bowel adhesion HYSTERECTOMY HX 1989' LAPAROSCOPY SURG CHOLECYSTECTOMY 05/12/2020 NEUROPLASTY &/TRANSPOS MEDIAN NRV CARPAL TUNNE Right 11/21/2015 Carpal tunnel decomp OVARIAN CYSTECTOMY UNI/BI 1996 left oophorectomy and 20# cyst PAST SURGICAL HISTORY OF 07/2012 Lumbar discectomy L3-L4 PAST SURGICAL HISTORY OF 09/2012 repeat lumbar surgery PAST SURGICAL HISTORY OF Right 12/2021 Wrist due to fracture (steel plate and 17 screws) SKIN GRAFT,SCALP,ARMS,LEGS 12/2013 bilateral posterior thigh autograft, fell in firepit TONSILLECTOMY & ADENOIDECTOMY <AGE 10 1979 Current Outpatient Medications on File Prior to Visit Medication Sig Blood Pressure Monitor 1 Each once daily. ICD 10 code I10 ibuprofen (MOTRIN) 800 mg tablet Take 1 tablet by mouth every 8 hours as needed for pain. Take with food. Blood Pressure Test Kit-Medium kit 1 Each once daily. metoprolol succinate ER (TOPROL XL) 50 mg 24 hr tablet Take 1 tablet by mouth once daily. oxybutynin ER (DITROPAN XL) 10 mg 24 hr tablet Take 1 tablet by mouth once daily. cyanocobalamin (VITAMIN B-12) 1,000 mcg tab Take 1 tablet by mouth once daily. OLANZapine (ZYPREXA) 5 mg tablet Take 1 tablet by mouth once daily. buPROPion XL (WELLBUTRIN XL) 150 mg 24 hr tablet Take 1 tablet by mouth once daily. traZODone (DESYREL) 150 mg tablet Take 1 tablet by mouth at bedtime as needed. WALKER ROLLATOR SEAT WITH 6 WHEELS - RED For daily use. M54.40, G89.29 Chronic left-sided low back pain with sciatica, sciatica laterality unspecified (primary encounter diagnosis) M51.36 DDD (degenerative disc disease), lumbar M47.816 Lumbar spondylosis R26.81 Gait instability Cholecalciferol, Vitamin D3, (VITAMIN D) 25 mcg (1,000 unit) cap Take 1 capsule by mouth once daily. omeprazole (PRILOSEC) 20 mg capsule TAKE 1 CAPSULE BY MOUTH DAILY albuterol HFA (VENTOLIN HFA) 90 mcg/actuation inhaler Inhale 2 Puffs as instructed every 4 hours as needed for wheezing/shortness of breath. atorvastatin (LIPITOR) 40 mg tablet Take 1 tablet by mouth daily at bedtime. pregabalin (LYRICA) 150 mg capsule Take one pill three times per day Do not start before July 26, 2022. mirabegron (MYRBETRIQ) 25 mg Tb24 Take 1 tablet by mouth once daily. thiamine (VITAMIN B1) 100 mg tablet Take 1 tablet by mouth once daily. tiotropium bromide (SPIRIVA RESPIMAT) 2.5 mcg/actuation inhaler Inhale 2 Puffs as instructed once daily. ferrous sulfate 325 mg (65 mg iron) tablet Take 1 tablet by mouth twice daily. budesonide-formoterol (SYMBICORT) 160-4.5 mcg/actuation inhaler Inhale 2 Puffs as instructed twice daily. L. acidophilus-L. rhamnosus (FLORAJEN WOMEN) 15 billion cell cap Take 1 capsule by mouth once daily. lisinopril (ZESTRIL, PRINIVIL) 20 mg tablet Take 1 tablet by mouth once daily. VITAMIN C 500 mg tablet albuterol (PROVENTIL) 2.5 mg /3 mL (0.083 %) nebulizer solution Use 3 mL via nebulizer every 4 hours as needed for wheezing/shortness of breath. Use over 5-15minutes. Nebulizers Use as directed. levothyroxine (SYNTHROID) 25 mcg tablet Take 25 mcg by mouth daily before breakfast. COMPOUNDED PRESCRIPTION Standard size Rollator Walker #1 Dx Large Blood Pressure Cuff #1 M51.36 DDD (degenerative disc disease), lumbar (primary encounter diagnosis) I10 Essential hypertension COMPOUNDED PRESCRIPTION ADJUSTABLE CANE DX M51.36 No current facility-administered medications on file prior to visit. Social History Tobacco Use Smoking status: Every Day Packs/day: 0.25 Years: 32.00 Pack years: 8.00 Types: Cigarettes Smokeless tobacco: Never Tobacco comments: started smoking 12yr, 3 cigs daily Vaping Use Vaping Use: Never used Substance Use Topics Alcohol use: Not Currently Drug use: Yes Types: Marijuana ALLERGIES Allergen Reactions Fentanyl Other: See Comments PATCH ONLY. Respiratory distress due to rapid absorption. Chantix [Vareniclin* Intolerance hallucinations Review of Systems: Cardiopulmonary: denies chest pain, palpitations Respiratory: + shortness of breath GI/: denies recent nausea, vomiting, diarrhea,+ constipation, incontinence Musculoskeletal: + weakness (L leg- uses can or walker) Neuro: denies tremors, loss of feeling, + dizziness, seizure, blackout, + paresthesia, facial paresthesia, facial weakness, difficulty in speech, slurring of words, dysarthria, dysphagia, + memory loss, + headache, vision changes, loss of hearing Physical Exam: 12/16/22 1120 BP: 168/100 Pulse: 106 Resp: 20 SpO2: 98% Weight: 64 kg (141 lb 3.2 oz) Patient is alert and in no distress. Dress is appropriate. Mood is appropriate Breathing appears regular and unstressed Neurologic examination: MOCA above. CN: Pupils equal and reactive to light, extraocular movements intact with no nystagmus, face is symmetric with no facial droop, hearing intact bilaterally, symmetric evaluation of the soft palate, tongue is midline with no deviation, shoulder shrug is symmetric. Motor exam shows 5/5 strength symmetric through the upper and lower extremities in all groups tested. Sensory intact to light touch in all extremities. Deep tendon reflexes are decreased symmetrically at the biceps, brachioradialis, triceps, patella, and achilles bilaterally. Coordination: No dysmetria on finger to nose. No tremors noted. No drift seen. Antalgic gait; pt using cane d/t LLE pain. Tandem with imbalance though difficult to assess as pt using can d/t pain on ambulation. Labs/studies: Component Latest Ref Rng & Units 03/09/2022 05/07/2022 WBC 3.70 - 11.00 k/uL 7.38 RBC 3.90 - 5.20 m/uL 4.13 Hemoglobin 11.5 - 15.5 g/dL 13.1 Hematocrit 36.0 - 46.0 % 40.5 MCV 80.0 - 100.0 fL 98.1 MCH 26.0 - 34.0 pg 31.7 MCHC 30.5 - 36.0 g/dL 32.3 RDW-CV 11.5 - 15.0 % 12.5 Platelet Count 150 - 400 k/uL 241 MPV 9.0 - 12.7 fL 12.0 Neut% % 62.5 Abs Neut (ANC) 1.45 - 7.50 k/uL 4.61 Lymph% % 23.7 Abs Lymph 1.00 - 4.00 k/uL 1.75 Finney% % 9.1 Abs Finney <0.87 k/uL 0.67 Eosin% % 4.1 Abs Eosin <0.46 k/uL 0.30 Baso% % 0.5 Abs Baso <0.11 k/uL 0.04 Immature Gran % % 0.1 IMMATURE GRANS (ABS) <0.10 k/uL <0.03 NRBC /100 WBC 0.0 Absolute nRBC <0.01 k/uL <0.01 DTYPE Auto Protein, Total 6.3 - 8.0 g/dL 7.1 Albumin 3.9 - 4.9 g/dL 3.6 (L) Calcium 8.5 - 10.2 mg/dL 9.2 Bilirubin, Total 0.2 - 1.3 mg/dL 0.4 Alkaline Phosphatase 34 - 123 U/L 70 AST 13 - 35 U/L 22 ALT 7 - 38 U/L 17 Glucose 74 - 99 mg/dL 72 (L) BUN 7 - 21 mg/dL 9 Creatinine 0.58 - 0.96 mg/dL 0.57 (L) Sodium 136 - 144 mmol/L 139 Potassium 3.7 - 5.1 mmol/L 4.4 Chloride 97 - 105 mmol/L 104 CO2 22 - 30 mmol/L 27 Anion Gap 9 - 18 mmol/L 8 (L) eGFR >=60 mL/min/1.73m 109 Iron 41 - 186 ug/dL 89 TIBC 232 - 386 ug/dL 291 Transferrin Saturation 15.0 - 57.0 % 30.6 Lead <=4.9 ug/dL <2.0 Mercury Blood <=10.0 ug/L <2.5 Arsenic, Blood <=12.0 ug/L <10.0 Syphilis Screen Result Nonreactive Nonreactive Syphilis Interpretation Cannot exclude recent Treponemal infection if specimen collected within 7-10 days after appearance of suspect lesions or 2-3 weeks after an exposure. Clinical correlation is required. Ferritin 14.7 - 205.1 ng/mL 342.0 (H) Lyme Abs, IgG/IgM Negative Negative Vitamin B12 232 - 1,245 pg/mL 311 Vitamin B1 (TDP), Whole Blood 84.3 - 213.3 nmol/L 221.0 (H) Free T4 0.9 - 1.7 ng/dL 1.1 TSH 0.270 - 4.200 mIU/L 1.110 Ammonia 11 - 51 umol/L 30 Assessment/Plan: R41.89 Cognitive impairment (primary encounter diagnosis) F10.11 Alcohol abuse, in remission F19.10 Polysubstance abuse ([facility]) Z79.899 Polypharmacy R26.89 Balance problem R29.6 Falls frequently F32.A Depression, unspecified depression type R44.3 Hallucinations Comment: Patient previously seen for complaints of cognitive decline. MRI brain and TSH both unremarkable. B12 low normal and pt supplementing. Concern at time of previous appointment that metabolic derangements, pseudodementia, polypharmacy and medication noncompliance, EtOH use, and polysubstance abuse potentially all contributing to symptoms. On further discussion, pt reports that since her previous appointment she has been experiencing visual hallucinations as well as increased falls. She does note that she has been following with psychiatry and medication adjustments were made around time of onset of hallucinations. In regards to falls, she reports a significant fall in June and since that time they have continued to occur more frequently. Exam relatively unchanged since time of previous appointment. Patient fidgeting/restless throughout exam, however, exam essentially unremarkable. She continues to ambulate with a cane d/t LLE pain, tandem with mild imbalance. No nystagmus or dysmetria. MOCA repeated today with slight decline in score since previous appointment; . Almost all points missed on drawing portion of exam. Given new concerns including falls and hallucinations as well as continued decline in MOCA score, will proceed with additional testing. Although hallucinations may be secondary to psychiatric medication changes, will proceed with EEG to rule out seizure. In addition, falls and balance concerns possibly secondary to LLE pain and hx of lumbar dz, however, will also order MRI brain to evaluate for new stroke or lesion. Of note, will also assess for changes on MRI that may contribute to worsening of cognitive concerns as well. Lastly, will order formal neurocognitive testing to further differentiate etiology of cognitive sx. She will follow up after testing is complete for result and symptom review or sooner if new or changing sx should occur. Office Visit on 12/16/22 MRI BRAIN WO SARA CONSULT TO PSYCHIATRY NEUROPSYCHOLOGICAL TESTING CONSULT EPIL EEG ROUTINE Urvashi Hughes APRN.CNP I spent a total of 45 minutes on the date of the service which included preparing to see the patient, [id number] patient care, completing clinical documentation, obtaining and/or reviewing separately obtained history, performing a medically appropriate examination, counseling and educating the patient/family/caregiver, and ordering medications, tests, or procedures. documented in this encounter [facility] 12-10-2022 Miscellaneous Notes The following approved medication requests have been transmitted electronically. Requested Prescriptions Signed Prescriptions Disp Refills Blood Pressure Monitor 1 Kit 0 Si Each once daily. ICD 10 code I10 Authorizing Provider: Jaimee PALOMARES PA-C Zeina MILADJaimee reports she received a faxed order for BP cuff. States she needs order to state BP monitor, and she needs it to have an ICD 10 code on it, and she needs it to be e-scripted to them. Pended. documented in this encounter [facility] 12-10-2022 Miscellaneous Notes Patient calls to request order for BP cuff be sent to DEYANIRA Powell. Faxed per request to [phone]. Hanna Mares RN documented in this encounter [facility] 12-09-2022 Note HNO ID: [id number] Author: Jaimee Palomares PA-C Service: ? Author Type: Physician Protection Specialist Type: Progress Notes Filed: 12/09/2022 7:56 PM Note Text: 52 year old female with c/o .HTN: Current meds: Metoprolol succinate 24h 50mg daily Patient is compliant with meds Yes Monitors bp at home: No. If yes, readings: Denies side effects: No. Chest pain: No. Dyspnea: No. Edema: No. Palpitations: No. Syncope: No. Dizzy if skips meds. Headache: Not currently but occasional Dizziness: No. Last 3 Encounter BP Readings: Date: BP: 12/09/2022 128/80 11/08/2022 142/84 10/20/2022 144/84 Last 2 Encounter Wt Readings: Date: Wt: 12/09/2022 71.7 kg (158 lb) 11/08/2022 65.8 kg (145 lb) HISTORIES FAMILY HISTORY Problem Relation Age of Onset Hypertension Mother Cancer Mother lung, metastatic Heart Father Heart Maternal Grandmother Stroke Maternal Grandmother Colon Cancer No Family History PAST MEDICAL HISTORY Diagnosis Date Alcohol abuse Anemia Back pain Blood dyscrasia Cervical spondylosis without myelopathy Cholecystitis 04/2020 Chronic hepatitis C (HCC) DDD (degenerative disc disease), lumbar Depression with anxiety Drug use 08/15/2018 ecstacy Emphysema of lung (HCC) Encounter for support and coordination of transition of care 05/15/2020 HOSPITAL/ER FOLLOW UP Which facility: [facility] Dates of visit: 05/10-05/13/2020 Preadmission evaluation: ER with right-sided abdominal pain over 2-1/2 hours, 10 out of 10. Worse with coughing. States she vomited 20 times the day before, with episodes of diarrhea over the past 2 days. Had used Imodium which improved diarrhea. No known exposures to Covid. Also identified chest pain which started a Encounter for support and coordination of transition of care 05/02/2021 Hospital discharge summary: Date of admission 05/01/2021 Date of discharge: Facility: [facility] 05/01/2021 presented to the emergency room with acute alcohol intoxication, initial alcohol level 7-8. Acknowledges over the last 5 months drinking 15 packs a day at 8% alcohol (marcin samaniego). Vital signs 96.6 F-78-18-111/73-98%. Appearance was no acute distress. WBC 7.9-Hgb 13.8-HCT 39 Encounter for support and coordination of transition of care 05/05/2022 05/05/2022 patient called squad, transported to [facility] with lightheadedness and multiple syncopal episodes one of them resulting in injury to her right foot. GERD (gastroesophageal reflux disease) Hyperglycemia Hypertension Lung abscess (HCC) saw Néstor Li and Dr. Zarate. Major depression Mild protein-calorie malnutrition (HCC) 08/26/2020 Obesity PE (pulmonary thromboembolism) ([facility]) PTSD (post-traumatic stress disorder) Snoring Tobacco use disorder Vasovagal syncope PAST SURGICAL HISTORY Procedure Laterality Date CARPAL TUNNEL Left 09/2015 COLONOSCOPY 11/27/2021 COLONOSCOPY FLX DX W/COLLJ SPEC WHEN PFRMD several years ago Colonoscopy COLONOSCOPY FLX DX W/COLLJ SPEC WHEN PFRMD 10/02/2014 Colonoscopy ESOPHAGOGASTRODUODENOSCOPY TRANSORAL DIAGNOSTIC 10/02/2014 EGD HEART CATHETERIZATION 10/30/2013 normal coronary arteries HYSTERECTOMY HX 2004 menorrhagia. JONAS/right oophorectomy. bowel adhesion HYSTERECTOMY HX 1989' LAPAROSCOPY SURG CHOLECYSTECTOMY 05/12/2020 NEUROPLASTY AND/TRANSPOS MEDIAN NRV CARPAL TUNNE Right 11/21/2015 Carpal tunnel decomp OVARIAN CYSTECTOMY UNI/BI 1996 left oophorectomy and 20# cyst PAST SURGICAL HISTORY OF 07/2012 Lumbar discectomy L3-L4 PAST SURGICAL HISTORY OF 09/2012 repeat lumbar surgery PAST SURGICAL HISTORY OF Right 12/2021 Wrist due to fracture (steel plate and 17 screws) SKIN GRAFT,SCALP,ARMS,LEGS 12/2013 bilateral posterior thigh autograft, fell in firepit TONSILLECTOMY AND ADENOIDECTOMY Social History Tobacco Use Smoking status: Every Day Packs/day: 0.25 Years: 32.00 Pack years: 8.00 Types: Cigarettes Smokeless tobacco: Never Tobacco comments: started smoking 12yr, 3 cigs daily Vaping Use Vaping Use: Never used Substance Use Topics Alcohol use: Not Currently Drug use: Yes Types: Marijuana ACTIVE PROBLEM LIST Back Pain Ddd (Degenerative Disc Disease), Lumbar Emphysema of Lung (Hcc) Tobacco Use Disorder Hypertension Gerd (Gastroesophageal Reflux Disease) Carpal Tunnel Syndrome, Bilateral Obesity Anemia Radiculopathy, Lumbar Region Alcohol Abuse Chronic Midline Low Back Pain With Left-Sided Sciatica Pe (Pulmonary Thromboembolism) (Hcc) Hyperglycemia Stasis Edema Right Lumbar Radiculopathy Obesity, Class III, BMI >= 40 (morbid obesity) E66.01 Delusional Disorder (Hcc) Chronic Low Back Pain With Sciatica Abnormal Echocardiogram Chronic Left-Sided Low Back Pain With Sciatica Copd (Chronic Obstructive Pulmonary Disease) With Chronic Bronchitis (Hcc) Positive Urine Drug Screen Lumbar Spondylosis Cervical Spondylosis Without Myel (more content not included)... [facility] 12-09-2022 History of Present illness Narrative 52 year old female with c/o .HTN: Current meds: Metoprolol succinate 24h 50mg daily Patient is compliant with meds Yes Monitors bp at home: No. If yes, readings: Denies side effects: No. Chest pain: No. Dyspnea: No. Edema: No. Palpitations: No. Syncope: No. Dizzy if skips meds. Headache: Not currently but occasional Dizziness: No. Last 3 Encounter BP Readings: Date: BP: 12/09/2022 128/80 11/08/2022 142/84 10/20/2022 144/84 Last 2 Encounter Wt Readings: Date: Wt: 12/09/2022 71.7 kg (158 lb) 11/08/2022 65.8 kg (145 lb) HISTORIES FAMILY HISTORY Problem Relation Age of Onset Hypertension Mother Cancer Mother lung, metastatic Heart Father Heart Maternal Grandmother Stroke Maternal Grandmother Colon Cancer No Family History PAST MEDICAL HISTORY Diagnosis Date Alcohol abuse Anemia Back pain Blood dyscrasia Cervical spondylosis without myelopathy Cholecystitis 04/2020 Chronic hepatitis C (HCC) DDD (degenerative disc disease), lumbar Depression with anxiety Drug use 08/15/2018 ecstacy Emphysema of lung (HCC) Encounter for support and coordination of transition of care 05/15/2020 HOSPITAL/ER FOLLOW UP Which facility: [facility] Dates of visit: 05/10-05/13/2020 Preadmission evaluation: ER with right-sided abdominal pain over 2-1/2 hours, 10 out of 10. Worse with coughing. States she vomited 20 times the day before, with episodes of diarrhea over the past 2 days. Had used Imodium which improved diarrhea. No known exposures to Covid. Also identified chest pain which started a Encounter for support and coordination of transition of care 05/02/2021 Hospital discharge summary: Date of admission 05/01/2021 Date of discharge: Facility: [facility] 05/01/2021 presented to the emergency room with acute alcohol intoxication, initial alcohol level 7-8. Acknowledges over the last 5 months drinking 15 packs a day at 8% alcohol (marcin samaniego). Vital signs 96.6 F-78-18-111/73-98%. Appearance was no acute distress. WBC 7.9-Hgb 13.8-HCT 39 Encounter for support and coordination of transition of care 05/05/2022 05/05/2022 patient called squad, transported to [facility] with lightheadedness and multiple syncopal episodes one of them resulting in injury to her right foot. GERD (gastroesophageal reflux disease) Hyperglycemia Hypertension Lung abscess (HCC) saw Néstor Li and Dr. Zarate. Major depression Mild protein-calorie malnutrition (HCC) 08/26/2020 Obesity PE (pulmonary thromboembolism) (HCC) PTSD (post-traumatic stress disorder) Snoring Tobacco use disorder Vasovagal syncope PAST SURGICAL HISTORY Procedure Laterality Date CARPAL TUNNEL Left 09/2015 COLONOSCOPY 11/27/2021 COLONOSCOPY FLX DX W/COLLJ SPEC WHEN PFRMD several years ago Colonoscopy COLONOSCOPY FLX DX W/COLLJ SPEC WHEN PFRMD 10/02/2014 Colonoscopy ESOPHAGOGASTRODUODENOSCOPY TRANSORAL DIAGNOSTIC 10/02/2014 EGD HEART CATHETERIZATION 10/30/2013 normal coronary arteries HYSTERECTOMY HX 2004 menorrhagia. JONAS/right oophorectomy. bowel adhesion HYSTERECTOMY HX 1989's LAPAROSCOPY SURG CHOLECYSTECTOMY 05/12/2020 NEUROPLASTY &/TRANSPOS MEDIAN NRV CARPAL TUNNE Right 11/21/2015 Carpal tunnel decomp OVARIAN CYSTECTOMY UNI/BI 1996 left oophorectomy and 20# cyst PAST SURGICAL HISTORY OF 07/2012 Lumbar discectomy L3-L4 PAST SURGICAL HISTORY OF 09/2012 repeat lumbar surgery PAST SURGICAL HISTORY OF Right 12/2021 Wrist due to fracture (steel plate and 17 screws) SKIN GRAFT,SCALP,ARMS,LEGS 12/2013 bilateral posterior thigh autograft, fell in firet TONSILLECTOMY & ADENOIDECTOMY <AGE 10 1977 Social History Tobacco Use Smoking status: Every Day Packs/day: 0.25 Years: 32.00 Pack years: 8.00 Types: Cigarettes Smokeless tobacco: Never Tobacco comments: started smoking 12yr, 3 cigs daily Vaping Use Vaping Use: Never used Substance Use Topics Alcohol use: Not Currently Drug use: Yes Types: Marijuana ACTIVE PROBLEM LIST Back Pain Ddd (Degenerative Disc Disease), Lumbar Emphysema of Lung (Hcc) Tobacco Use Disorder Hypertension Gerd (Gastroesophageal Reflux Disease) Carpal Tunnel Syndrome, Bilateral Obesity Anemia Radiculopathy, Lumbar Region Alcohol Abuse Chronic Midline Low Back Pain With Left-Sided Sciatica Pe (Pulmonary Thromboembolism) ([facility]) Hyperglycemia Stasis Edema Right Lumbar Radiculopathy Obesity, Class III, BMI >= 40 (morbid obesity) E66.01 Delusional Disorder ([facility]) Chronic Low Back Pain With Sciatica Abnormal Echocardiogram Chronic Left-Sided Low Back Pain With Sciatica Copd (Chronic Obstructive Pulmonary Disease) With Chronic Bronchitis ([facility]) Positive Urine Drug Screen Lumbar Spondylosis Cervical Spondylosis Without Myelopathy Other Chest Pain Stress Incontinence Chronic Active Hepatitis C ([facility]) History of Colonic Polyps Traumatic Closed Nondisp Torus Fracture of Distal Radial Metaphysis, Right, With Routine Healing, Subsequent Encounter Bacterial Vaginosis Spinal Stenosis, Lumbar Region, Without Neurogenic Claudication Cognitive Impairment, Mild, So Stated Current Outpatient Medications Medication Sig Dispense Refill metoprolol succinate ER (TOPROL XL) 50 mg 24 hr tablet Take 1 tablet by mouth once daily. 30 tablet 3 oxybutynin ER (DITROPAN XL) 10 mg 24 hr tablet Take 1 tablet by mouth once daily. 30 tablet 1 ibuprofen (MOTRIN) 800 mg tablet Take 1 tablet by mouth every 8 hours as needed for pain. Take with food. 30 tablet 1 cyanocobalamin (VITAMIN B-12) 1,000 mcg tab Take 1 tablet by mouth once daily. 90 tablet 1 OLANZapine (ZYPREXA) 5 mg tablet Take 1 tablet by mouth once daily. buPROPion XL (WELLBUTRIN XL) 150 mg 24 hr tablet Take 1 tablet by mouth once daily. traZODone (DESYREL) 150 mg tablet Take 1 tablet by mouth at bedtime as needed. WALKER ROLLATOR SEAT WITH 6 WHEELS - RED For daily use. M54.40, G89.29 Chronic left-sided low back pain with sciatica, sciatica laterality unspecified (primary encounter diagnosis) M51.36 DDD (degenerative disc disease), lumbar M47.816 Lumbar spondylosis R26.81 Gait instability 1 Each 0 Cholecalciferol, Vitamin D3, (VITAMIN D) 25 mcg (1,000 unit) cap Take 1 capsule by mouth once daily. 90 capsule 1 omeprazole (PRILOSEC) 20 mg capsule TAKE 1 CAPSULE BY MOUTH DAILY 30 capsule 5 albuterol HFA (VENTOLIN HFA) 90 mcg/actuation inhaler Inhale 2 Puffs as instructed every 4 hours as needed for wheezing/shortness of breath. 3 Each 3 atorvastatin (LIPITOR) 40 mg tablet Take 1 tablet by mouth daily at bedtime. 90 tablet 1 pregabalin (LYRICA) 150 mg capsule Take one pill three times per day Do not start before July 26, 2022. 90 capsule 5 mirabegron (MYRBETRIQ) 25 mg Tb24 Take 1 tablet by mouth once daily. 30 tablet 5 thiamine (VITAMIN B1) 100 mg tablet Take 1 tablet by mouth once daily. 30 tablet 5 tiotropium bromide (SPIRIVA RESPIMAT) 2.5 mcg/actuation inhaler Inhale 2 Puffs as instructed once daily. 1 Each 5 ferrous sulfate 325 mg (65 mg iron) tablet Take 1 tablet by mouth twice daily. 56 tablet 11 budesonide-formoterol (SYMBICORT) 160-4.5 mcg/actuation inhaler Inhale 2 Puffs as instructed twice daily. 1 Each 5 L. acidophilus-L. rhamnosus (FLORAJEN WOMEN) 15 billion cell cap Take 1 capsule by mouth once daily. 30 capsule 1 lisinopril (ZESTRIL, PRINIVIL) 20 mg tablet Take 1 tablet by mouth once daily. 30 tablet 5 VITAMIN C 500 mg tablet albuterol (PROVENTIL) 2.5 mg /3 mL (0.083 %) nebulizer solution Use 3 mL via nebulizer every 4 hours as needed for wheezing/shortness of breath. Use over 5-15minutes. 120 mL 5 Nebulizers Use as directed. 1 Each 0 levothyroxine (SYNTHROID) 25 mcg tablet Take 25 mcg by mouth daily before breakfast. COMPOUNDED PRESCRIPTION Standard size Rollator Walker #1 Dx Large Blood Pressure Cuff #1 M51.36 DDD (degenerative disc disease), lumbar (primary encounter diagnosis) I10 Essential hypertension 1 Each 0 COMPOUNDED PRESCRIPTION ADJUSTABLE CANE DX M51.36 1 Device 0 No current facility-administered medications for this visit. HEPATITIS B(1 of 3 - 3-dose series) Never done HEPATITIS A(1 of 2 - Risk 2-dose series) Never done SPIROMETRY Never done BP CONTROLLED (<130/80) Never done ALPHA-1 ANTITRYPSIN DEFICIENCY SCREENING Never done EXAM: BP 128/80 Pulse 72 Resp 18 Wt 71.7 kg (158 lb) SpO2 96% BMI 23.33 kg/m Weight up 23lbs Pleasant well appearing adult woman in no acute distress. Alert and oriented all spheres. Normal affect and cognition. Speech normal. No deficits to learning or comprehension. Skin warm, dry, pink to lips and nailbeds. Normal turgor. Respirations regular and unlabored. Chest is normal shape. Lungs are clear to all coreas with good air exchange through out. HRRR without murmur or gallop. No lifts, heaves, or rubs. Extrem: no clubbing or cyanosis. Edema: none. Extremities are warm and pink with prompt capillary refill. ASSESSMENT/PLAN: 1. Hypertension, essential - ICD9: 401.9, ICD10: I10 - Controlled - Continue current medications - Recommend home blood pressure monitoring, to bring results to next visit - Encouraged sodium restriction, DASH or Mediterranean diet - Recommend regular aerobic exercise Jaimee Palomares PA-C documented in this encounter [facility] 11-22-2022 Miscellaneous Notes Patient calling to say she was seen in [facility] ER today. She says she was given Hydralazine for her high BP and instructed to follow up with PCP in 3- 5 days. Scheduled follow up with Liliam Rowell NP on 11/24 per patient's preference. Laina Orellana RN Patient calling to let provider know her blood pressure was 197/132 at dentist office this morning and she is having symptoms of headache and blurred vision. She is taking Metoprolol as prescribed. Reviewed triage protocol guidelines with patient. Verbalizes understanding. Disposition: ED now. She is agreeable. Laina Orellana RN Reason for Disposition [1] Systolic BP >= 160 OR Diastolic >= 100 AND [2] cardiac or neurologic symptoms (e.g., chest pain, difficulty breathing, unsteady gait, blurred vision) Answer Assessment - Initial Assessment Questions 1. BLOOD PRESSURE: 197/132 reading at dentist office 2. ONSET: at dentist office within last hour 3. HOW: Automated BP cuff 4. HISTORY: history of hypertension with ER visit on 11/03/22 5. MEDICATIONS: Resumed Metoprolol 50 mg daily on 11/03/22 6. OTHER SYMPTOMS: complains of headache with pressure behind eyes and blurred vision 7. :NO Protocols used: Blood Pressure - [id number] documented in this encounter [facility] 11-22-2022 Miscellaneous Notes Last OV: 11/08/22. - Next scheduled appt: 12/09/22 Patient has been identified by name and date of : Yes Requested Prescriptions Pending Prescriptions Disp Refills metoprolol succinate ER (TOPROL XL) 50 mg 24 hr tablet 30 tablet 3 Sig: Take 1 tablet by mouth once daily. RX INSTRUCTIONS: Pharmacy initiated this request. No need to notify patient. Zoraida Garcia LPN documented in this encounter [facility] 11-08-2022 Note HNO ID: [id number] Author: Jaimee Palomares PA-C Service: ? Author Type: Physician Protection Specialist Type: Progress Notes Filed: 11/08/2022 8:05 PM Note Text: 52 year old female with c/o here for follow up on elevated BP through ED- no records. - , 11/03/2022 ED follow up for high blood pressure Sent from dentist's office, asymptomatic. VS 97.8 F-76-18-196/116, 207/127-97 to 100% RA. On discharge blood pressure 133/109. Exam was otherwise unremarkable. CBC was within normal limits except RBC 4.14L and EOS 6.3 Chemistry profile WNL except BUN 19. Normal troponins. Chest x-ray no acute process EKG normal sinus rhythm ventricular rate [address] brain unenhanced: No interval change Treated with 1 dose of hydralazine which successfully brought blood pressure down to 133/[address] On-[address] Dr. Almazan was consulted and recommended metoprolol ER 50 mg daily from prior prescriptions. Discharged in stable condition. Feels fine. Currently little stressed because her boyfriend Bam having emergency surgery for hernia sent to [facility]. Still having some flashes shoot behind eyes with feeling of heat in face/ flushed. No chest pain, Some palpitations, feeling lightheaded, feels swollen in hand and feet but not today, feels stiff. Patient reassures me that she has not used any methamphetamine since last time and asked to be checked through drug testing, and is maintaining sobriety through AA with a sponsor. I did advise her in the future if I have concerns particularly with her weight loss that I will check spontaneously or ask her to come in spontaneously for testing. HISTORIES FAMILY HISTORY Problem Relation Age of Onset Hypertension Mother Cancer Mother lung, metastatic Heart Father Heart Maternal Grandmother Stroke Maternal Grandmother Colon Cancer No Family History PAST MEDICAL HISTORY Diagnosis Date Alcohol abuse Anemia Back pain Blood dyscrasia Cervical spondylosis without myelopathy Cholecystitis 04/2020 Chronic hepatitis C (HCC) DDD (degenerative disc disease), lumbar Depression with anxiety Drug use 08/15/2018 ecstacy Emphysema of lung (HCC) Encounter for support and coordination of transition of care 05/15/2020 HOSPITAL/ER FOLLOW UP Which facility: [facility] Dates of visit: 05/10-05/13/2020 Preadmission evaluation: ER with right-sided abdominal pain over 2-1/2 hours, 10 out of 10. Worse with coughing. States she vomited 20 times the day before, with episodes of diarrhea over the past 2 days. Had used Imodium which improved diarrhea. No known exposures to Covid. Also identified chest pain which started a Encounter for support and coordination of transition of care 05/02/2021 Hospital discharge summary: Date of admission 05/01/2021 Date of discharge: Facility: [facility] 05/01/2021 presented to the emergency room with acute alcohol intoxication, initial alcohol level 7-8. Acknowledges over the last 5 months drinking 15 packs a day at 8% alcohol (marcin samaniego). Vital signs 96.6 F-78-18-111/73-98%. Appearance was no acute distress. WBC 7.9-Hgb 13.8-HCT 39 Encounter for support and coordination of transition of care 05/05/2022 05/05[facility] with lightheadedness and multiple syncopal episodes one of them resulting in injury to her right foot. GERD (gastroesophageal reflux disease) Hyperglycemia Hypertension Lung abscess (HCC) saw Néstor Li and Dr. Zarate. Major depression Mild protein-calorie malnutrition (HCC) 08/26/2020 Obesity PE (pulmonary thromboembolism) (HCC) PTSD (post-traumatic stress disorder) Snoring Tobacco use disorder Vasovagal syncope PAST SURGICAL HISTORY Procedure Laterality Date CARPAL TUNNEL Left 09/2015 COLONOSCOPY 11/27/2021 COLONOSCOPY FLX DX W/COLLJ SPEC WHEN PFRMD several years ago Colonoscopy COLONOSCOPY FLX DX W/COLLJ SPEC WHEN PFRMD 10/02/2014 Colonoscopy ESOPHAGOGASTRODUODENOSCOPY TRANSORAL DIAGNOSTIC 10/02/2014 EGD HEART CATHETERIZATION 10/30/2013 normal coronary arteries HYSTERECTOMY HX 2004 menorrhagia. JONAS/right oophorectomy. bowel adhesion HYSTERECTOMY HX 1989' LAPAROSCOPY SURG CHOLECYSTECTOMY 05/12/2020 NEUROPLASTY AND/TRANSPOS MEDIAN NRV CARPAL TUNNE Right 11/21/2015 Carpal tunnel decomp OVARIAN CYSTECTOMY UNI/BI 1996 left oophorectomy and 20# cyst PAST SURGICAL HISTORY OF 07/2012 Lumbar discectomy L3-L4 PAST SURGICAL HISTORY OF 09/2012 repeat lumbar surgery PAST SURGICAL HISTORY OF Right 12/2021 Wrist due to fracture (steel plate and 17 screws) SKIN GRAFT,SCALP,ARMS,LEGS 12/2013 bilateral posterior thigh autograft, fell in firepit TONSILLECTOMY AND ADENOIDECTOMY Social History Tobacco Use Smoking status: Every Day Packs/day: 0.25 Years: 32.00 Pack years: 8.00 Types: Cigarettes Smokeless tobacco: Never Tobacco comments: started smoking 12yr, 3 (more content not included)... [facility] 10-26-2022 Miscellaneous Notes Patient has been identified by name and date of : Pharmacy phones for refill(s): Requested Prescriptions Pending Prescriptions Disp Refills ibuprofen (MOTRIN) 800 mg tablet 30 tablet 1 Sig: Take 1 tablet by mouth every 8 hours as needed for pain. Take with food. Date of last office visit in primary care: 09/16/2022, has appt 11/08/2022 Last 2 Encounter Wt Readings: Date: Wt: 10/20/2022 61.2 kg (135 lb) 09/16/2022 59.4 kg (131 lb) Previous labs/tests for medication: Not applicable Please advise. Thank you. Maribell Baltazar LPN documented in this encounter [facility] 10-20-2022 Note HNO ID: [id number] Author: Jenifer Yeager APRN.AKOSUA Service: ? Author Type: Prototype Model Maker Type: Progress Notes Filed: 10/20/2022 9:15 PM Note Text: Mariluz Garcia is a 52 year old female who presents for problem visit for breast pain. HPI: Presents today for left sided breast pain that started 3 months ago. Left breast pain on and off. Mammogram and breast ultrasound completed. No skin dimpling, discoloration, or discharge. Vaginal discharge and odor. No new partners, declines exam and would like treatment for BV. OB History T0 L0 SAB0 IAB0 Ectopic0 Multiple0 Live Births0 Events Assistant History LMP: Hysterectomy Age at Menarche: Age at First : Age at Menopause: Events Assistant History Comments: Sexual Activity: Not Currently; No partner data on record Contraception: No contraception data on record PAST MEDICAL HISTORY Diagnosis Date Alcohol abuse Anemia Back pain Blood dyscrasia Cervical spondylosis without myelopathy Cholecystitis 04/2020 Chronic hepatitis C (HCC) DDD (degenerative disc disease), lumbar Depression with anxiety Drug use 08/15/2018 ecstacy Emphysema of lung (HCC) Encounter for support and coordination of transition of care 05/15/2020 HOSPITAL/ER FOLLOW UP Which facility: [facility] Dates of visit: 05/10-05/13/2020 Preadmission evaluation: ER with right-sided abdominal pain over 2-1/2 hours, 10 out of 10. Worse with coughing. States she vomited 20 times the day before, with episodes of diarrhea over the past 2 days. Had used Imodium which improved diarrhea. No known exposures to Covid. Also identified chest pain which started a Encounter for support and coordination of transition of care 05/02/2021 Hospital discharge summary: Date of admission 05/01/2021 Date of discharge: Facility: [facility] 05/01/2021 presented to the emergency room with acute alcohol intoxication, initial alcohol level 7-8. Acknowledges over the last 5 months drinking 15 packs a day at 8% alcohol (marcin samaniego). Vital signs 96.6 F-78-18-111/73-98%. Appearance was no acute distress. WBC 7.9-Hgb 13.8-HCT 39 Encounter for support and coordination of transition of care 05/05/2022 05/05/2022 patient called squad, transported to [facility] with lightheadedness and multiple syncopal episodes one of them resulting in injury to her right foot. GERD (gastroesophageal reflux disease) Hyperglycemia Hypertension Lung abscess (HCC) saw Néstor Li and Dr. Zarate. Major depression Mild protein-calorie malnutrition (HCC) 08/26/2020 Obesity PE (pulmonary thromboembolism) ([facility]) PTSD (post-traumatic stress disorder) Snoring Tobacco use disorder Vasovagal syncope PAST SURGICAL HISTORY Procedure Laterality Date CARPAL TUNNEL Left 09/2015 COLONOSCOPY 11/27/2021 COLONOSCOPY FLX DX W/COLLJ SPEC WHEN PFRMD several years ago Colonoscopy COLONOSCOPY FLX DX W/COLLJ SPEC WHEN PFRMD 10/02/2014 Colonoscopy ESOPHAGOGASTRODUODENOSCOPY TRANSORAL DIAGNOSTIC 10/02/2014 EGD HEART CATHETERIZATION 10/30/2013 normal coronary arteries HYSTERECTOMY HX 2004 menorrhagia. JONAS/right oophorectomy. bowel adhesion HYSTERECTOMY HX 1989' LAPAROSCOPY SURG CHOLECYSTECTOMY 05/12/2020 NEUROPLASTY AND/TRANSPOS MEDIAN NRV CARPAL TUNNE Right 11/21/2015 Carpal tunnel decomp OVARIAN CYSTECTOMY UNI/BI 1996 left oophorectomy and 20# cyst PAST SURGICAL HISTORY OF 07/2012 Lumbar discectomy L3-L4 PAST SURGICAL HISTORY OF 09/2012 repeat lumbar surgery PAST SURGICAL HISTORY OF Right 12/2021 Wrist due to fracture (steel plate and 17 screws) SKIN GRAFT,SCALP,ARMS,LEGS 12/2013 bilateral posterior thigh autograft, fell in [employer] TONSILLECTOMY AND ADENOIDECTOMY FAMILY HISTORY Problem Relation Age of Onset Hypertension Mother Cancer Mother lung, metastatic Heart Father Heart Maternal Grandmother Stroke Maternal Grandmother Colon Cancer No Family History Social History Tobacco Use Smoking status: Every Day Packs/day: 0.25 Years: 32.00 Pack years: 8.00 Types: Cigarettes Smokeless tobacco: Never Tobacco comments: started smoking 12yr, 3 cigs daily Vaping Use Vaping Use: Never used Substance Use Topics Alcohol use: Not Currently Drug use: Yes Types: Marijuana Current Outpatient Medications Medication Sig cyanocobalamin (VITAMIN B-12) 1,000 mcg tab Take 1 tablet by mouth once daily. OLANZapine (ZYPREXA) 5 mg tablet Take 1 tablet by mouth once daily. buPROPion XL (WELLBUTRIN XL) 150 mg 24 hr tablet Take 1 tablet by mouth once daily. traZODone (DESYREL) 150 mg tablet Take 1 tablet by mouth at bedtime as needed. WALKER ROLLATOR SEAT WITH 6 WHEELS - RED For daily use. M54.40, G89.29 Chronic left-sided low back pain with sciatica, sciatica laterality unspecified (primary encounter diagnosis) M51.36 DDD (degenerative disc disease), lumbar M47.816 Lumbar spondylosis R26.81 Gait instability ibuprofen (MOTRIN) 800 mg table (more content not included)... [facility] 10-20-2022 Instructions Jenifer Yeager APRN.[facility] - 10/20/2022 11:32 AM EDT Management of Benign Breast Pain / Fibrocystic Changes Decrease or avoid intake of caffeine, including coffee, teas, sodas, and chocolate. Decrease or avoid nicotine. Wear a support or sports (not underwire) bra. Take jain-ofc-jqqpxxe ibuprofen (Advil/Motrin) or other NSAIDs, such as naproxen (Aleve). Take 3 grams (3000 mg.) of evening primrose oil (available jhsa-iia-zuxukku) in divided doses for 2 months. Take warm showers. Use warm compresses. Bacterial Vaginosis What is bacterial vaginosis? Bacterial vaginosis (BV) is a common infection that occurs in a woman's vagina. Bacterial vaginosis does not usually cause serious health problems, except in women. What causes BV? Health care providers do not yet fully understand what causes BV. Bacteria are a natural part of the vagina. For some reason, something upsets the normal balance of bacteria. Some of the bacteria grow too rapidly and cause infection. What are the symptoms of BV? Unfortunately, almost 50 percent of the women who have bacterial vaginosis do not have any symptoms. Common symptoms of BV include: White or discolored discharge Discharge that smells fishy Fishy smell that is strongest after sex Other symptoms can include: Itchy vagina Sore vagina Because BV has symptoms that are similar to other infections, it is important that you visit your health care provider if you think you have an infection in your vagina. Who can get BV? Any woman can get BV. The infection is most common in women between the ages of 18 and 44. BV is most common in sexually active women, although sexual transmission of BV has never been proven. Women who are not engaging in sex can also get BV. You may have a higher risk of getting BV if you: Have many sex partners Have a sexually transmitted infection (STI) How can I know if I have BV? Your health care provider can tell you if you have BV. He or she will examine you and will take a sample of fluid from your vagina. The fluid is viewed under a microscope. In most cases, your health care provider can tell right away if you have BV. How is BV treated? Bacterial vaginosis is treated using medicines that kill the infection. The most common medicine ordered for BV is called metronidazole. Common product names for this medicine are Flagyl and Protostat . Metronidazole may be given as a pill that is taken by mouth. It may also be given as a vaginal gel. Does the medication have side effects? Yes. You may have: Upset stomach Metal taste in your mouth Heartburn Don't drink alcohol while you are taking metronidazole. You can become very sick to your stomach. Call your health care provider if you have these or any other side effects. Can I treat myself for BV? No. Bacterial vaginosis can only be treated with medicines ordered by your health care provider. You cannot purchase uqdx-yfl-oywoqqi products to treat BV. Products for douching and treating yeast infections will not cure BV. Should I be treated for BV if I am ? Yes, but not during the first three months of . Some studies have shown that having the infection during may cause early labor and premature . Tell your health care provider if you are . Also let your health care provider know if you think that you might be . You and your health care provider should discuss whether or not the infection should be treated. How can I protect myself from BV? Ways to prevent BV are not yet known. Female hygiene products like douches and deodorants will not cure the infection. These products may make the infection worse. To maintain your overall good health: Eat a well-balanced diet Exercise Manage stress levels Get a pelvic exam as directed by your provider When should I call my doctor? You should call your health care provider any time if: Your vaginal discharge changes color, becomes heavier, or smells different You notice itching, burning, swelling, or soreness around the vagina Copyright [id number] The [facility]. All rights reserved. This information is provided by the [facility] and is not intended to replace the medical advice of your doctor or health care provider. Please consult your health care provider for advice about a specific medical condition. For additional written health information, please contact the Health Information Center at the [facility] or toll-free extension [phone] or visit [email or web address] This document was last reviewed on: 2009 documented in this encounter [facility] 10-20-2022 History of Present illness Narrative Mariluz Garcia is a 52 year old female who presents for problem visit for breast pain. HPI: Presents today for left sided breast pain that started 3 months ago. Left breast pain on and off. Mammogram and breast ultrasound completed. No skin dimpling, discoloration, or discharge. Vaginal discharge and odor. No new partners, declines exam and would like treatment for BV. OB History T0 L0 SAB0 IAB0 Ectopic0 Multiple0 Live Births0 Events Assistant History LMP: Hysterectomy Age at Menarche: Age at First : Age at Menopause: Events Assistant History Comments: Sexual Activity: Not Currently; No partner data on record Contraception: No contraception data on record PAST MEDICAL HISTORY Diagnosis Date Alcohol abuse Anemia Back pain Blood dyscrasia Cervical spondylosis without myelopathy Cholecystitis 04/2020 Chronic hepatitis C (HCC) DDD (degenerative disc disease), lumbar Depression with anxiety Drug use 08/15/2018 ecstacy Emphysema of lung (HCC) Encounter for support and coordination of transition of care 05/15/2020 HOSPITAL/ER FOLLOW UP Which facility: [facility] Dates of visit: 05/10-05/13/2020 Preadmission evaluation: ER with right-sided abdominal pain over 2-1/2 hours, 10 out of 10. Worse with coughing. States she vomited 20 times the day before, with episodes of diarrhea over the past 2 days. Had used Imodium which improved diarrhea. No known exposures to Covid. Also identified chest pain which started a Encounter for support and coordination of transition of care 05/02/2021 Hospital discharge summary: Date of admission 05/01/2021 Date of discharge: Facility: [facility] 05/01/2021 presented to the emergency room with acute alcohol intoxication, initial alcohol level 7-8. Acknowledges over the last 5 months drinking 15 packs a day at 8% alcohol (natty daddy). Vital signs 96.6 [id number]/73-98%. Appearance was no acute distress. WBC 7.9-Hgb 13.8-HCT 39 Encounter for support and coordination of transition of care 05/05/2022 05/05/2022 patient called squad, transported to [facility] with lightheadedness and multiple syncopal episodes one of them resulting in injury to her right foot. GERD (gastroesophageal reflux disease) Hyperglycemia Hypertension Lung abscess (HCC) saw Néstor Li and Dr. Zarate. Major depression Mild protein-calorie malnutrition (HCC) 08/26/2020 Obesity PE (pulmonary thromboembolism) (HCC) PTSD (post-traumatic stress disorder) Snoring Tobacco use disorder Vasovagal syncope PAST SURGICAL HISTORY Procedure Laterality Date CARPAL TUNNEL Left 09/2015 COLONOSCOPY 11/27/2021 COLONOSCOPY FLX DX W/COLLJ SPEC WHEN PFRMD several years ago Colonoscopy COLONOSCOPY FLX DX W/COLLJ SPEC WHEN PFRMD 10/02/2014 Colonoscopy ESOPHAGOGASTRODUODENOSCOPY TRANSORAL DIAGNOSTIC 10/02/2014 EGD HEART CATHETERIZATION 10/30/2013 normal coronary arteries HYSTERECTOMY HX 2004 menorrhagia. JONAS/right oophorectomy. bowel adhesion HYSTERECTOMY HX 1989's LAPAROSCOPY SURG CHOLECYSTECTOMY 05/12/2020 NEUROPLASTY &/TRANSPOS MEDIAN NRV CARPAL TUNNE Right 11/21/2015 Carpal tunnel decomp OVARIAN CYSTECTOMY UNI/BI 1996 left oophorectomy and 20# cyst PAST SURGICAL HISTORY OF 07/2012 Lumbar discectomy L3-L4 PAST SURGICAL HISTORY OF 09/2012 repeat lumbar surgery PAST SURGICAL HISTORY OF Right 12/2021 Wrist due to fracture (steel plate and 17 screws) SKIN GRAFT,SCALP,ARMS,LEGS 12/2013 bilateral posterior thigh autograft, fell in [employer] TONSILLECTOMY & ADENOIDECTOMY <AGE 10 1977 FAMILY HISTORY Problem Relation Age of Onset Hypertension Mother Cancer Mother lung, metastatic Heart Father Heart Maternal Grandmother Stroke Maternal Grandmother Colon Cancer No Family History Social History Tobacco Use Smoking status: Every Day Packs/day: 0.25 Years: 32.00 Pack years: 8.00 Types: Cigarettes Smokeless tobacco: Never Tobacco comments: started smoking 12yr, 3 cigs daily Vaping Use Vaping Use: Never used Substance Use Topics Alcohol use: Not Currently Drug use: Yes Types: Marijuana Current Outpatient Medications Medication Sig cyanocobalamin (VITAMIN B-12) 1,000 mcg tab Take 1 tablet by mouth once daily. OLANZapine (ZYPREXA) 5 mg tablet Take 1 tablet by mouth once daily. buPROPion XL (WELLBUTRIN XL) 150 mg 24 hr tablet Take 1 tablet by mouth once daily. traZODone (DESYREL) 150 mg tablet Take 1 tablet by mouth at bedtime as needed. WALKER ROLLATOR SEAT WITH 6 WHEELS - RED For daily use. M54.40, G89.29 Chronic left-sided low back pain with sciatica, sciatica laterality unspecified (primary encounter diagnosis) M51.36 DDD (degenerative disc disease), lumbar M47.816 Lumbar spondylosis R26.81 Gait instability ibuprofen (MOTRIN) 800 mg tablet Take 1 tablet by mouth every 8 hours as needed for pain. Take with food. Cholecalciferol, Vitamin D3, (VITAMIN D) 25 mcg (1,000 unit) cap Take 1 capsule by mouth once daily. omeprazole (PRILOSEC) 20 mg capsule TAKE 1 CAPSULE BY MOUTH DAILY albuterol HFA (VENTOLIN HFA) 90 mcg/actuation inhaler Inhale 2 Puffs as instructed every 4 hours as needed for wheezing/shortness of breath. baclofen (LIORESAL) 10 mg tablet Take 1 tablet by mouth twice daily as needed. atorvastatin (LIPITOR) 40 mg tablet Take 1 tablet by mouth daily at bedtime. pregabalin (LYRICA) 150 mg capsule Take one pill three times per day Do not start before July 26, 2022. mirabegron (MYRBETRIQ) 25 mg Tb24 Take 1 tablet by mouth once daily. thiamine (VITAMIN B1) 100 mg tablet Take 1 tablet by mouth once daily. tiotropium bromide (SPIRIVA RESPIMAT) 2.5 mcg/actuation inhaler Inhale 2 Puffs as instructed once daily. ferrous sulfate 325 mg (65 mg iron) tablet Take 1 tablet by mouth twice daily. budesonide-formoterol (SYMBICORT) 160-4.5 mcg/actuation inhaler Inhale 2 Puffs as instructed twice daily. L. acidophilus-L. rhamnosus (FLORAJEN WOMEN) 15 billion cell cap Take 1 capsule by mouth once daily. lisinopril (ZESTRIL, PRINIVIL) 20 mg tablet Take 1 tablet by mouth once daily. VITAMIN C 500 mg tablet oxybutynin ER (DITROPAN XL) 10 mg 24 hr tablet Take 1 tablet by mouth once daily. albuterol (PROVENTIL) 2.5 mg /3 mL (0.083 %) nebulizer solution Use 3 mL via nebulizer every 4 hours as needed for wheezing/shortness of breath. Use over 5-15minutes. Nebulizers Use as directed. levothyroxine (SYNTHROID) 25 mcg tablet Take 25 mcg by mouth daily before breakfast. COMPOUNDED PRESCRIPTION Standard size Rollator Walker #1 Dx Large Blood Pressure Cuff #1 M51.36 DDD (degenerative disc disease), lumbar (primary encounter diagnosis) I10 Essential hypertension COMPOUNDED PRESCRIPTION ADJUSTABLE CANE DX M51.36 No current facility-administered medications for this visit. Allergies As of Date: 10/20/2022 Allergen Noted Reaction FENTANYL 08/22/2015 Other: See Comments CHANTIX [VARENICLINE] 09/30/2016 Intolerance Fully Assessed 10/14/2022 REVIEW OF SYSTEMS Abdomen: No bloating, early satiety, indigestion, or increased flatulence. No abdominal pain, nausea, vomiting, diarrhea, or constipation. Bladder: No dysuria, gross hematuria, urinary frequency, urinary urgency, or incontinence. Breast: No breast lumps, nipple d/c, overlying skin changes, redness or skin retraction. Expanded ROS: N/A Allergies and current medication updated:Yes EXAM: There were no vitals taken for this visit. BP 144/84 Wt 135 lb (61.2 kg) BMI 19.94 kg/m GENERAL: pleasant, female in no apparent distress HEENT: Normocephalic and atraumatic NECK: Supple and full range of motion DERMATOLOGY: Normal and without lesions BREAST: soft, non-tender, symmetric, no dominant mass, normal nipple-areolar complex, no lymphadenopathy, no nipple discharge, fibrocystic changes, and Left breast with tenderness to entire breast. NEURO: alert and oriented x3,exam grossly non-focal EXTREMITIES: normal ASSESSMENT AND PLAN: 1. Mastodynia of left breast - ICD9: 611.71, ICD10: N64.4 (primary diagnosis) - CONSULT TO BREAST CENTER - Mammogram and breast ultrasound is normal. Patient is very concerned and would like further follow up. Referral to breast center. 2. Dense breast tissue - ICD9: 793.82, ICD10: R92.2 - CONSULT TO BREAST CENTER 3. Vaginal discharge - ICD9: 623.5, ICD10: N89.8 4. Vaginal odor - ICD9: 625.8, ICD10: N89.8 -Flagyl 500mg PO BID x 7 days. If symptoms do no resolve recommend testing and exam. Jenifer Yeager APRN.CNM documented in this encounter [facility] 10-14-2022 Note HNO ID: [id number] Author: Shruthi Keita MA Service: ? Author Type: Violin Teacher Type: Progress Notes Filed: 10/14/2022 1:57 PM Note Text: Review of Systems Constitutional: Positive for chills and fever. Negative for activity change and unexpected weight change. Gastrointestinal: Negative for bowel retention or incontinence Genitourinary: Negative for difficulty urinating. Negative for bladder retention or incontinence Musculoskeletal: Positive for arthralgias, back pain, gait problem, joint swelling, myalgias, neck pain and neck stiffness. Neurological: Positive for weakness, numbness and headaches. Psychiatric/Behavioral: Positive for dysphoric mood. Negative for sleep disturbance and suicidal ideas. The patient is nervous/anxious. [facility] 10-14-2022 History of Present illness Narrative Review of Systems Constitutional: Positive for chills and fever. Negative for activity change and unexpected weight change. Gastrointestinal: Negative for bowel retention or incontinence Genitourinary: Negative for difficulty urinating. Negative for bladder retention or incontinence Musculoskeletal: Positive for arthralgias, back pain, gait problem, joint swelling, myalgias, neck pain and neck stiffness. Neurological: Positive for weakness, numbness and headaches. Psychiatric/Behavioral: Positive for dysphoric mood. Negative for sleep disturbance and suicidal ideas. The patient is nervous/anxious. Images from the original note were not included. [facility] Name: Mariluz Garcia : 1970 Purpose: 2 month follow-up Today's Date: 10/14/2022 Last Visit: 07/29/2022 Chief complaint: neck and low back pain Mariluz Garcia is an established patient, returning today for continued evaluation and management of the chief complaint noted above. Interval History: Overall pain and functional disability: worse New Complaints: none She reports that her neck pain has slowly returned on the left side, burning, relieved with massage to the area, near the base of the scalp. Occasionally has headaches. Right side still doing well. She completed aquatic PT. She has an MRI scheduled in October. She sees Dr. Wright back afterwards to discuss. Pain Description: Timing: constant Character: Shooting Primary Location: Low Back Radiation: LEFT whole leg to her foot, especially the posterior and medial loewr limb Exacerbating factors: unable to pinpoint exacerbating factors/positions Relieving factors: unable to pinpoint positions/factors that are mitigating Interferes with: physical activity, walking, and social activities The patient reports 2-3 hours of uninterrupted sleep per night The patient denies difficulty with bowel or bladder control. Medications Prescribed: Started or modified: none Discontinued: none Maintained at current dosages: Lyrica 150mg TID (Managed by PCP) Baclofen 10mg TID Tolerating Medication: yes Medications helping improve ADL's and Self-care: yes Analgesia: partially adequate Procedures Performed: DATE PROCEDURE IMPROVEMENT 04/21/2022 RFA Right C4-5,5-6,6-7 75% (10/14/2022 ) 04/07/2022 RFA Left C4-5,5-6,6-7 75% x 5 months Therapies Attended: Physical Therapy (Aquatic) - completed her course at [facility]. Completed since July. Studies Obtained: none (relevant findings reported below) Recall: 07/2022 - She has been seeing a spine surgeon (Dr. Wright), is in PT to complete and get an MRI. This is in process. 07/2022 - Hx of previous lumbar surgery, decompression of L4/5. [facility] Current Status: INTAKE PAIN ASSESSMENT 08/16/2022 08/26/2022 Are you having pain associated with your visit today? No No Pain Scales - - Pain Level - - Pain Location - - Description - - Duration Amount of Time - - Duration Units - - Frequency - - Intervention/Comfort measure - - Comments - - Pain Assessment - - Current Anti-Coagulant Use: No Risk Assessment: BETO-7: BETO - 7 SCORES 11/12/2021 02/18/2022 BETO-7 Score 7 10 (0-4) minimal anxiety, (5-9) mild anxiety, (10-14) moderate anxiety, (15-21) severe anxiety PHQ-9: PHQ-9 02/13/2019 11/12/2021 02/18/2022 Score 17 4 17 (0-4) minimal depression, (5-9) mild depression, (10-14) moderate depression, (15-19) moderately severe depression, (20-27) severe depression Compliance: PDMP website checked and validated. Fills various opioids from several providers 10/14/2022 by Deloris Troy MD Percocet 5/325, #20 (04/09/2022), #28 (08/04/2022), #20 (08/11/2022) Allergies: ALLERGIES Allergen Reactions Fentanyl Other: See Comments PATCH ONLY. Respiratory distress due to rapid absorption. Chantix [Vareniclin* Intolerance hallucinations Data Reviewed: Reviewed personally on today's date Relevant Imaging: MRI Spine Report MRI LUMBAR SPINE WO IVCON Exam End: 06/05/2021 10:57 AM (Final result) Narrative: * * *Final Report* * * DATE OF EXAM: Jun 05 2021 10:50AM [id number] - MRI LUMBAR SPINE WO IVCON / PROCEDURE REASON: multiple diagnoses * * * * Physician Interpretation * * * * EXAMINATION: MRI LUMBAR SPINE WO IVCON CLINICAL HISTORY: Lumbar spondylosis Spinal stenosis of lumbar region without neurogenic claudication. Additional narrative history of prior spine surgery in 2012. Back pain radiates into both hips and left leg. This information is taken directly from the service order dispatcher system. TECHNIQUE: Routine lumbosacral spine MR protocol without gadolinium. MQ: [id number] COMPARISON: Prior lumbar plain films 01/16/2021. Previous outside MRI of the lumbosacral spine 04/24/2014. RESULT: Counting reference: Lumbosacral junction. For the purposes of this report, L4-5 is considered the level of the iliac crest and assume there are 5 lumbar-type vertebrae. Anatomic variant: None. Localizer images: Moderate obesity. No paraspinal masses are evident. Tiny bilateral renal cysts. Alignment: Mild scoliotic curvature convex left visible on the picture enlarger. [place] at L4-L5. Mild straightening of usual lumbar lordosis and slightly kyphotic alignment at the level of L1 related to minimal old anterior wedging morphology of L1. Bone marrow signal/fracture: Advanced endplate degenerative change at L1-L2 through the L4-L5 level. Type I endplate changes, which may contribute to mechanical back pain. Multilevel endplate irregularities which have the morphology of Schmorl's nodes. No gross vertebral body collapse or bony retropulsion otherwise. Conus: The distal cord terminates normally at the extreme upper margin of L2. No impingement of the distal cord within the [id number]. Paraspinal soft tissues: As above. No paraspinal masses are evident. Lower thoracic spine: Canal and foramina are normally patent at T11-T12. Facet degenerative changes are present at this level, but no significant impact on canal or foraminal patency. T12-L1: Canal and foramina are patent. L1-L2: Disk bulging, loss of disk height, and loss of normal T2 hyperintensity in the disk. Facet degenerative change. Central canal is patent. Neural foramina are patent. L2-L3: Disk bulging, loss of disk height, and partial loss of normal T2 hyperintensity in the disk. Facet degenerative change. Flattening of ventral thecal sac, spinal canal and lateral recesses are otherwise grossly open. Neural foramina are patent. L3-L4: Disk bulging, loss of disk height, and loss of normal T2 hyperintensity in the disk.. Facet degenerative change. Prior right hemilaminectomy. There is right lateral recess narrowing, likely impinging on the descending right L4 nerve root. Left lateral recess is open. Spinal canal is otherwise patent. Loss of disc height, lateral margin of the annulus, and facet degenerative change contributes to [id number]-[id number] right foraminal narrowing. L4-L5: Disk bulging, loss of disk height, and loss of normal T2 hyperintensity in the disk. Facet degenerative change. Bilateral lateral recess narrowing impinging the descending L5 nerve roots. Loss of disc height, lateral margins of the annulus, and facet degenerative change contribute to moderate-severe right foraminal narrowing. Left neural foramen is patent. L5-S1: Mild disc bulging and facet degenerative change. Central thecal sac is patent. No compression of either descending S1 nerve root sleeve. Loss of disc height, lateral margin of the annulus, and facet degenerative change contributes to severe left foraminal narrowing. Right neural foramen is patent. Sacrum and iliac wings: No acute fracture. Impression: IMPRESSION: Scoliosis and spondylosis as discussed. There is no high-grade spinal stenosis. Moderate to severe right foraminal narrowing at L4-L5 affecting the exiting right L4 nerve root, severe left foraminal narrowing at L5-S1 affecting the exiting left L5 nerve root. Lateral recess narrowing on the right at L3-L4 likely impinges on the descending right L4 nerve root. Bilateral lateral recess narrowing at L4-L5 likely impinges on the descending L5 nerve roots. Would expect lower extremity radiculopathy as a consequence. No impingement of the distal cord. Degenerative changes have progressed since the prior MRI in 2014. Anatomic Thoracic/Lumbar Variant: None. L4-5 is considered the level of the iliac crest and assume there are 5 lumbar-type vertebrae. Jack Frame Tender: CJ Transcribe Date/Time: Jun 05 2021 11:26A Dictated by : GITA MALHOTRA MD This examination was interpreted and the report reviewed and electronically signed by: GITA MALHOTRA MD on Jun 05 2021 11:36AM EST CT Cervical 06/2022 Pain Procedures: DATE PROCEDURE IMPROVEMENT 04/21/2022 RFA Right C4-5,5-6,6-7 75% (07/29/2022 ) 04/07/2022 RFA Left C4-5,5-6,6-7 75% (07/29/2022 ) 02/24/22 BL TFESI L5/S1 No relief 08/27/21 BL TFESI L5/S1 Current Medications, Past Medical History, Past Surgical History, Family History, Social History and Review of Systems: On today's date, noted above, I have confirmed and edited as necessary, the PFSH and ROS obtained by others. Physical Exam: 10/14/22 1324 Pulse: 75 Resp: 16 SpO2: 97% Constitutional: normal weight HEENT: Normal Cephalic, Atraumatic, Non-icteric sclera Eyes: Conjunctiva clear. No discharge from eyes Cardiovascular: Appears well perfused Lymphatic: No visible regional lymphadenopathy Skin: No visible rashes or ecchymosis Psychiatric: Full affect, Alert, Pleasant She has concordant tenderness to palpation over the left upper trap and cervical paraspinals, with triggering She has 25% reduced lateral rotation and 50% reduced lateral bending bilaterally (From 07/2022) LUMBAR MUSCULOSKELETAL/NEURO EXAM Inspection: - Symmetric without atrophy Posture: Kyphotic Gait: Antalgic, ambulates with walker Palpation: - Lumbar Paraspinal Tenderness: Concordant in the Bilateral lumbar paraspinals - Paraspinal Spasms: None - Greater Trochanter: None tenderness Bilateral Strength: (limited by pain) LEFT RIGHT Iliopsoas (L2) 4 5 Quadriceps (L3) 4 5 Anterior Tibialis (L4): 4 5 Exten Hallucis Longus (L5) 4 5 Gastrocnemius (S1): 4 5 Muscle Tone: - Normal and symmetric Neural Tension Signs: Deferred by pain Sensation: - Diminished to light touch left medial ankle Stefan's Signs: Superficial non-anatomic tenderness: Yes Overreaction: Yes Give-way weakness: Yes Diagnoses: (M47.816) Lumbar spondylosis (primary encounter diagnosis) (M47.812) Cervical spondylosis without myelopathy (M48.061) Spinal stenosis of lumbar region without neurogenic claudication (M79.18) Myofascial pain Impression & Plan: 52 year old female, who presents with complaint(s) of chronic low back pain with LEFT sided radicular symptoms. Reports she has not had much relief with BL TFESI of L5/S1 in the past. States her spine surgeon ordered an updated lumbar MRI, which is pending now s/p PT course. She is considering both surgery and injections (TFESI LEFT L4/5, L5/S1). She is already on Lyrica and has frequent misc opioids RX from outside providers. She occasionally take ibuprofen. Her most recent lumbar MRI demonstrates BL lateral recess narrowing of the L5 NR at the L4/5 level and severe FS LEFT L5/S1. This may have worsened over the interim. Neck pain doing much better since RFA. Mariluz Garcia would benefit from the following to decrease pain, improve function and/or work participation, and improve quality of life: Interventional Procedure(s): trigger point injections left upper trapezius and cervical paraspinals (Consider repeat CYNDIE after reviewing MRI) The risks, benefits, alternative treatment options and prognosis of the procedure were discussed and all of the patient's questions/concerns were addressed to the patient's satisfaction. The patient expressed understanding and gave verbal consent to proceed. Medications: Refill: Continue Lyrica as directed (Managed by PCP) Continue Baclofen 10mg TID - encouraged to try holding to see if truly helping Functional Jewish: Home Exercise Program under provider supervisions - continue Additional Studies: none Referrals: none Additional: Consider EMG/NCT Left lower limb Patient is happy and agreeable with this plan. All questions were answered and patient verbalized understanding. Depending on response to the above plan, consider: Follow-up: 2 months Attribution: In addition to reviewing the information noted above, some elements copied from my most recent clinical note(s), including the physical exam (completed in entirety today), and the impression and plan sections, have been updated where appropriate. All reflect current medical decision making from today's date. Deloris Troy MD [place] [facility] documented in this encounter [facility] 10-07-2022 Miscellaneous Notes Spoke with patient and placed in mail Printed and taken to nursing desk Faustino Palomares PA-C Pt called in and reports she lost her handicapped placard. She was told she had to call her PCP because she needed a prescription for it. Pt is asking if provider would write an Rx for her and she would like to have a copy of it for herself. Please call and advise. documented in this encounter [facility] 10-06-2022 Note HNO ID: [id number] Author: Deloris Troy MD Service: ? Author Type: Physician Type: Progress Notes Filed: 10/14/2022 1:57 PM Note Text: [facility] [place] General Name: Mariluz Garcia : 1970 Purpose: 2 month follow-up Today's Date: 10/14/2022 Last Visit: 07/29/2022 Chief complaint: neck and low back pain Mariluz Garcia is an established patient, returning today for continued evaluation and management of the chief complaint noted above. Interval History: Overall pain and functional disability: worse New Complaints: none She reports that her neck pain has slowly returned on the left side, burning, relieved with massage to the area, near the base of the scalp. Occasionally has headaches. Right side still doing well. She completed aquatic PT. She has an MRI scheduled in October. She sees Dr. Wright back afterwards to discuss. Pain Description: Timing: constant Character: Shooting Primary Location: Low Back Radiation: LEFT whole leg to her foot, especially the posterior and medial loewr limb Exacerbating factors: unable to pinpoint exacerbating factors/positions Relieving factors: unable to pinpoint positions/factors that are mitigating Interferes with: physical activity, walking, and social activities The patient reports 2-3 hours of uninterrupted sleep per night The patient denies difficulty with bowel or bladder control. Medications Prescribed: Started or modified: none Discontinued: none Maintained at current dosages: Lyrica 150mg TID (Managed by PCP) Baclofen 10mg TID Tolerating Medication: yes Medications helping improve ADL's and Self-care: yes Analgesia: partially adequate Procedures Performed: DATE PROCEDURE IMPROVEMENT 04/21/2022 RFA Right C4-5,5-6,6-7 75% (10/14/2022 ) 04/07/2022 RFA Left C4-5,5-6,6-7 75% x 5 months Therapies Attended: Physical Therapy (Aquatic) - completed her course at [facility]. Completed since July. Studies Obtained: none (relevant findings reported below) Recall: 07/2022 - She has been seeing a spine surgeon (Dr. Wright), is in PT to complete and get an MRI. This is in process. 07/2022 - Hx of previous lumbar surgery, decompression of L4/5. [facility] Current Status: INTAKE PAIN ASSESSMENT 08/16/2022 08/26/2022 Are you having pain associated with your visit today? No No Pain Scales - - Pain Level - - Pain Location - - Description - - Duration Amount of Time - - Duration Units - - Frequency - - Intervention/Comfort measure - - Comments - - Pain Assessment - - Current Anti-Coagulant Use: No Risk Assessment: BETO-7: BETO - 7 SCORES 11/12/2021 02/18/2022 BETO-7 Score 7 10 (0-4) minimal anxiety, (5-9) mild anxiety, (10-14) moderate anxiety, (15-21) severe anxiety PHQ-9: PHQ-9 02/13/2019 11/12/2021 02/18/2022 Score 17 4 17 (0-4) minimal depression, (5-9) mild depression, (10-14) moderate depression, (15-19) moderately severe depression, (20-27) severe depression Compliance: PDMP website checked and validated. Fills various opioids from several providers 10/14/2022 by Deloris Troy MD Percocet , #20 (04/09/2022), #28 (08/04/2022), #20 (08/11/2022) Allergies: ALLERGIES Allergen Reactions Fentanyl Other: See Comments PATCH ONLY. Respiratory distress due to rapid absorption. Chantix [Vareniclin* Intolerance hallucinations Data Reviewed: Reviewed personally on today's date Relevant Imaging: MRI Spine Report MRI LUMBAR SPINE WO IVCON Exam End: 06/05/2021 10:57 AM (Final result) Narrative: * * *Final Report* * * DATE OF EXAM: Jun 05 2021 10:50AM [id number] - MRI LUMBAR SPINE WO IVCON / PROCEDURE REASON: multiple diagnoses * * * * Physician Interpretation * * * * EXAMINATION: MRI LUMBAR SPINE WO IVCON CLINICAL HISTORY: Lumbar spondylosis Spinal stenosis of lumbar region without neurogenic claudication. Additional narrative history of prior spine surgery in 2012. Back pain radiates into both hips and left leg. This information is taken directly from the service order dispatcher system. TECHNIQUE: Routine lumbosacral spine MR protocol without gadolinium. MQ: [id number] COMPARISON: Prior lumbar plain films 01/16/2021. Previous outside MRI of the lumbosacral spine 04/24/2014. RESULT: Counting reference: Lumbosacral junction. For the purposes of this report, L4-5 is considered the level of the iliac crest and assume there are 5 lumbar-type vertebrae. Anatomic variant: None. Localizer images: Moderate obesity. No paraspinal masses are evident. Tiny bilateral renal cysts. Alignment: Mild scoliotic curvature convex left visible on the picture enlarger. [place] at L4-L5. Mild straightening of usual lumbar lordosis and slightly kyphotic alignment at the level of L1 related to minimal old anterior wedging morphology of L1. Bone marrow signal/fracture: Advanced endplate degenerative change at L1-L2 through the L4 (more content not included)... [facility] 09-16-2022 Note HNO ID: [id number] Author: Jaimee Palomares PA-C Service: ? Author Type: Physician Protection Specialist Type: Progress Notes Filed: 09/16/2022 3:41 PM Note Text: 52 year old female with c/o here with request for rollator. Issues with balance, frequent falls. Says pain shooting from left buttock radiating into back of leg. States Care Source declined last epidural injection due to lack of response from prior injection. Has has numerous falls in last year, including resultant closed fracture distal radius. Suspect balance issues r/t Wernicke's/ L5-S1 pain left buttock down posterior leg to heel. Asking me to talk with Dr. Troy to do something to alleviate pain. Constant, all day long. Concerned about weight loss. Last visit acknowledged used meth one time. Continues use of cannabis. 01/15/2022 utox: amphetamines, cannabis HISTORIES FAMILY HISTORY Problem Relation Age of Onset Hypertension Mother Cancer Mother lung, metastatic Heart Father Heart Maternal Grandmother Stroke Maternal Grandmother Colon Cancer No Family History PAST MEDICAL HISTORY Diagnosis Date Alcohol abuse Anemia Back pain Blood dyscrasia Cervical spondylosis without myelopathy Cholecystitis 04/2020 Chronic hepatitis C (HCC) DDD (degenerative disc disease), lumbar Depression with anxiety Drug use 08/15/2018 ecstacy Emphysema of lung ([facility]) Encounter for support and coordination of transition of care 05/15/2020 HOSPITAL/ER FOLLOW UP Which facility: [facility] Dates of visit: 05/10-05/13/2020 Preadmission evaluation: ER with right-sided abdominal pain over 2-1/2 hours, 10 out of 10. Worse with coughing. States she vomited 20 times the day before, with episodes of diarrhea over the past 2 days. Had used Imodium which improved diarrhea. No known exposures to Covid. Also identified chest pain which started a Encounter for support and coordination of transition of care 05/02/2021 Hospital discharge summary: Date of admission 05/01/2021 Date of discharge: Facility: [facility] 05/01/2021 presented to the emergency room with acute alcohol intoxication, initial alcohol level 7-8. Acknowledges over the last 5 months drinking 15 packs a day at 8% alcohol (marcin samaniego). Vital signs 96.6 F-78-18-111/73-98%. Appearance was no acute distress. WBC 7.9-Hgb 13.8-HCT 39 Encounter for support and coordination of transition of care 05/05/2022 05/05/2022 patient called squad, transported to [facility] with lightheadedness and multiple syncopal episodes one of them resulting in injury to her right foot. GERD (gastroesophageal reflux disease) Hyperglycemia Hypertension Lung abscess ([facility]) saw Néstor Li and Dr. Zarate. Major depression Mild protein-calorie malnutrition ([facility]) 08/26/2020 Obesity PE (pulmonary thromboembolism) ([facility]) PTSD (post-traumatic stress disorder) Snoring Tobacco use disorder Vasovagal syncope PAST SURGICAL HISTORY Procedure Laterality Date CARPAL TUNNEL Left 09/2015 COLONOSCOPY 11/27/2021 COLONOSCOPY FLX DX W/COLLJ SPEC WHEN PFRMD several years ago Colonoscopy COLONOSCOPY FLX DX W/COLLJ SPEC WHEN PFRMD 10/02/2014 Colonoscopy ESOPHAGOGASTRODUODENOSCOPY TRANSORAL DIAGNOSTIC 10/02/2014 EGD HEART CATHETERIZATION 10/30/2013 normal coronary arteries HYSTERECTOMY HX 2004 menorrhagia. JONAS/right oophorectomy. bowel adhesion HYSTERECTOMY HX 1989' LAPAROSCOPY SURG CHOLECYSTECTOMY 05/12/2020 NEUROPLASTY AND/TRANSPOS MEDIAN NRV CARPAL TUNNE Right 11/21/2015 Carpal tunnel decomp OVARIAN CYSTECTOMY UNI/BI 1996 left oophorectomy and 20# cyst PAST SURGICAL HISTORY OF 07/2012 Lumbar discectomy L3-L4 PAST SURGICAL HISTORY OF 09/2012 repeat lumbar surgery PAST SURGICAL HISTORY OF Right 12/2021 Wrist due to fracture (steel plate and 17 screws) SKIN GRAFT,SCALP,ARMS,LEGS 12/2013 bilateral posterior thigh autograft, fell in firepit TONSILLECTOMY AND ADENOIDECTOMY Social History Tobacco Use Smoking status: Every Day Packs/day: 2.00 Years: 32.00 Pack years: 64.00 Types: Cigarettes Smokeless tobacco: Never Tobacco comments: started smoking 12yr, 3 cigs daily Vaping Use Vaping Use: Never used Substance Use Topics Alcohol use: Not Currently Drug use: Yes Types: Marijuana ACTIVE PROBLEM LIST Back Pain Ddd (Degenerative Disc Disease), Lumbar Emphysema of Lung (Hcc) Tobacco Use Disorder Hypertension Gerd (Gastroesophageal Reflux Disease) Carpal Tunnel Syndrome, Bilateral Obesity Anemia Radiculopathy, Lumbar Region Alcohol Abuse Chronic Midline Low Back Pain With Left-Sided Sciatica Pe (Pulmonary Thromboembolism) (Hcc) Hyperglycemia Stasis Edema Right Lumbar Radiculopathy Obesity, Class III, BMI >= 40 (morbid obesity) E66.01 Delusional Disorder (Hcc) Chronic Low Back Pain With Sciatica Abnormal Echocardiogram Chronic Left-Sided Low Back Pain With Sciatica Copd (Chronic Obstructive Pulm (more content not included)... [facility] 09-16-2022 History of Present illness Narrative 52 year old female with c/o here with request for rollator. Issues with balance, frequent falls. Says pain shooting from left buttock radiating into back of leg. States Care Source declined last epidural injection due to lack of response from prior injection. Has has numerous falls in last year, including resultant closed fracture distal radius. Suspect balance issues r/t Wernicke's/ L5-S1 pain left buttock down posterior leg to heel. Asking me to talk with Dr. Troy to do something to alleviate pain. Constant, all day long. Concerned about weight loss. Last visit acknowledged used meth one time. Continues use of cannabis. 01/15/2022 utox: amphetamines, cannabis HISTORIES FAMILY HISTORY Problem Relation Age of Onset Hypertension Mother Cancer Mother lung, metastatic Heart Father Heart Maternal Grandmother Stroke Maternal Grandmother Colon Cancer No Family History PAST MEDICAL HISTORY Diagnosis Date Alcohol abuse Anemia Back pain Blood dyscrasia Cervical spondylosis without myelopathy Cholecystitis 04/2020 Chronic hepatitis C (HCC) DDD (degenerative disc disease), lumbar Depression with anxiety Drug use 08/15/2018 ecstacy Emphysema of lung ([facility]) Encounter for support and coordination of transition of care 05/15/2020 HOSPITAL/ER FOLLOW UP Which facility: [facility] Dates of visit: 05/10-05/13/2020 Preadmission evaluation: ER with right-sided abdominal pain over 2-1/2 hours, 10 out of 10. Worse with coughing. States she vomited 20 times the day before, with episodes of diarrhea over the past 2 days. Had used Imodium which improved diarrhea. No known exposures to Covid. Also identified chest pain which started a Encounter for support and coordination of transition of care 05/02/2021 Hospital discharge summary: Date of admission 05/01/2021 Date of discharge: Facility: [facility] 05/01/2021 presented to the emergency room with acute alcohol intoxication, initial alcohol level 7-8. Acknowledges over the last 5 months drinking 15 packs a day at 8% alcohol (nataidan samaniego). Vital signs 96.6 F-78-18-111/73-98%. Appearance was no acute distress. WBC 7.9-Hgb 13.8-HCT 39 Encounter for support and coordination of transition of care 05/05/2022 05/05/2022 patient called squad, transported to [facility] with lightheadedness and multiple syncopal episodes one of them resulting in injury to her right foot. GERD (gastroesophageal reflux disease) Hyperglycemia Hypertension Lung abscess ([facility]) saw Néstor Li and Dr. Zarate. Major depression Mild protein-calorie malnutrition (HCC) 08/26/2020 Obesity PE (pulmonary thromboembolism) (HCC) PTSD (post-traumatic stress disorder) Snoring Tobacco use disorder Vasovagal syncope PAST SURGICAL HISTORY Procedure Laterality Date CARPAL TUNNEL Left 09/2015 COLONOSCOPY 11/27/2021 COLONOSCOPY FLX DX W/COLLJ SPEC WHEN PFRMD several years ago Colonoscopy COLONOSCOPY FLX DX W/COLLJ SPEC WHEN PFRMD 10/02/2014 Colonoscopy ESOPHAGOGASTRODUODENOSCOPY TRANSORAL DIAGNOSTIC 10/02/2014 EGD HEART CATHETERIZATION 10/30/2013 normal coronary arteries HYSTERECTOMY HX 2004 menorrhagia. JONAS/right oophorectomy. bowel adhesion HYSTERECTOMY HX 1989' LAPAROSCOPY SURG CHOLECYSTECTOMY 05/12/2020 NEUROPLASTY &/TRANSPOS MEDIAN NRV CARPAL TUNNE Right 11/21/2015 Carpal tunnel decomp OVARIAN CYSTECTOMY UNI/BI 1996 left oophorectomy and 20# cyst PAST SURGICAL HISTORY OF 07/2012 Lumbar discectomy L3-L4 PAST SURGICAL HISTORY OF 09/2012 repeat lumbar surgery PAST SURGICAL HISTORY OF Right 12/2021 Wrist due to fracture (steel plate and 17 screws) SKIN GRAFT,SCALP,ARMS,LEGS 12/2013 bilateral posterior thigh autograft, fell in firepit TONSILLECTOMY & ADENOIDECTOMY <AGE 10 1977 Social History Tobacco Use Smoking status: Every Day Packs/day: 2.00 Years: 32.00 Pack years: 64.00 Types: Cigarettes Smokeless tobacco: Never Tobacco comments: started smoking 12yr, 3 cigs daily Vaping Use Vaping Use: Never used Substance Use Topics Alcohol use: Not Currently Drug use: Yes Types: Marijuana ACTIVE PROBLEM LIST Back Pain Ddd (Degenerative Disc Disease), Lumbar Emphysema of Lung (Hcc) Tobacco Use Disorder Hypertension Gerd (Gastroesophageal Reflux Disease) Carpal Tunnel Syndrome, Bilateral Obesity Anemia Radiculopathy, Lumbar Region Alcohol Abuse Chronic Midline Low Back Pain With Left-Sided Sciatica Pe (Pulmonary Thromboembolism) (Hcc) Hyperglycemia Stasis Edema Right Lumbar Radiculopathy Obesity, Class III, BMI >= 40 (morbid obesity) E66.01 Delusional Disorder (Hcc) Chronic Low Back Pain With Sciatica Abnormal Echocardiogram Chronic Left-Sided Low Back Pain With Sciatica Copd (Chronic Obstructive Pulmonary Disease) With Chronic Bronchitis (Hcc) Positive Urine Drug Screen Lumbar Spondylosis Cervical Spondylosis Without Myelopathy Other Chest Pain Stress Incontinence Chronic Active Hepatitis C (Hcc) History of Colonic Polyps Traumatic Closed Nondisp Torus Fracture of Distal Radial Metaphysis, Right, With Routine Healing, Subsequent Encounter Bacterial Vaginosis Spinal Stenosis, Lumbar Region, Without Neurogenic Claudication Cognitive Impairment, Mild, So Stated Current Outpatient Medications Medication Sig Dispense Refill OLANZapine (ZYPREXA) 5 mg tablet Take 1 tablet by mouth once daily. buPROPion XL (WELLBUTRIN XL) 150 mg 24 hr tablet Take 1 tablet by mouth once daily. traZODone (DESYREL) 150 mg tablet Take 1 tablet by mouth at bedtime as needed. ibuprofen (MOTRIN) 800 mg tablet Take 1 tablet by mouth every 8 hours as needed for pain. Take with food. 30 tablet 1 Cholecalciferol, Vitamin D3, (VITAMIN D) 25 mcg (1,000 unit) cap Take 1 capsule by mouth once daily. 90 capsule 1 omeprazole (PRILOSEC) 20 mg capsule TAKE 1 CAPSULE BY MOUTH DAILY 30 capsule 5 albuterol HFA (VENTOLIN HFA) 90 mcg/actuation inhaler Inhale 2 Puffs as instructed every 4 hours as needed for wheezing/shortness of breath. 3 Each 3 baclofen (LIORESAL) 10 mg tablet Take 1 tablet by mouth twice daily as needed. 60 tablet 2 atorvastatin (LIPITOR) 40 mg tablet Take 1 tablet by mouth daily at bedtime. 90 tablet 1 pregabalin (LYRICA) 150 mg capsule Take one pill three times per day Do not start before July 26, 2022. 90 capsule 5 mirabegron (MYRBETRIQ) 25 mg Tb24 Take 1 tablet by mouth once daily. 30 tablet 5 thiamine (VITAMIN B1) 100 mg tablet Take 1 tablet by mouth once daily. 30 tablet 5 tiotropium bromide (SPIRIVA RESPIMAT) 2.5 mcg/actuation inhaler Inhale 2 Puffs as instructed once daily. 1 Each 5 ferrous sulfate 325 mg (65 mg iron) tablet Take 1 tablet by mouth twice daily. 56 tablet 11 budesonide-formoterol (SYMBICORT) 160-4.5 mcg/actuation inhaler Inhale 2 Puffs as instructed twice daily. 1 Each 5 L. acidophilus-L. rhamnosus (FLORAJEN WOMEN) 15 billion cell cap Take 1 capsule by mouth once daily. 30 capsule 1 cyanocobalamin (VITAMIN B-12) 1,000 mcg tab Take 1 tablet by mouth once daily. 90 tablet 1 lisinopril (ZESTRIL, PRINIVIL) 20 mg tablet Take 1 tablet by mouth once daily. 30 tablet 5 VITAMIN C 500 mg tablet oxybutynin ER (DITROPAN XL) 10 mg 24 hr tablet Take 1 tablet by mouth once daily. 90 tablet 3 albuterol (PROVENTIL) 2.5 mg /3 mL (0.083 %) nebulizer solution Use 3 mL via nebulizer every 4 hours as needed for wheezing/shortness of breath. Use over 5-15minutes. 120 mL 5 levothyroxine (SYNTHROID) 25 mcg tablet Take 25 mcg by mouth daily before breakfast. QUEtiapine (SEROQUEL) 300 mg tablet Take 300 mg by mouth once daily. (Patient not taking: Reported on 09/16/2022) Nebulizers Use as directed. 1 Each 0 COMPOUNDED PRESCRIPTION Standard size Rollator Walker #1 Dx Large Blood Pressure Cuff #1 M51.36 DDD (degenerative disc disease), lumbar (primary encounter diagnosis) I10 Essential hypertension 1 Each 0 COMPOUNDED PRESCRIPTION ADJUSTABLE CANE DX M51.36 1 Device 0 No current facility-administered medications for this visit. HEPATITIS B(1 of 3 - 3-dose series) Never done HEPATITIS A(1 of 2 - Risk 2-dose series) Never done SPIROMETRY Never done BP CONTROLLED (<130/80) Never done ALPHA-1 ANTITRYPSIN DEFICIENCY SCREENING Never done EXAM: BP 170/88 Pulse 92 Resp 18 Wt 59.4 kg (131 lb) SpO2 99% BMI 19.35 kg/m Pleasant adult woman in no acute distress. Alert and oriented all spheres. Normal affect and cognition. Speech normal. No deficits to learning or comprehension. Skin warm, dry, pink to lips and nailbeds. Normal turgor. Respirations regular and unlabored. HEENT: NCAT. No scleral icterus or conjunctival injection. TM's clear. Nose and oropharynx free from injection or lesion. Oral membranes moist and pink. No cervical lymph nodes. Thyroid non-tender, no masses, or enlargement. Carotids pulses 2+/4+ without bruits. No JVD with HOB at 30 degrees. Chest is normal shape. Lungs are clear to all coreas with good air exchange through out. HRRR without murmur or gallop. No lifts, heaves, or rubs. Extrem: no clubbing or cyanosis. Edema: none. Extremities are warm and pink with prompt capillary refill. Unsteady gait, seems to lean to left, trouble making turns, has to use cane to hang on to furniture. Pain with palpation over SI/ piriformis area. ASSESSMENT/PLAN: 1. Chronic left-sided low back pain with sciatica, sciatica laterality unspecified - ICD9: 724.2, 724.3, 338.29, ICD10: M54.40, G89.29 (primary diagnosis) Lumbar spinal stenosis on MRI. Will contact Ayde Troy to see if we can arrange treatment - WALKER ROLLATOR SEAT WITH 6 WHEELS - RED 2. DDD (degenerative disc disease), lumbar - ICD9: 722.52, ICD10: M51.36 As above - WALKER ROLLATOR SEAT WITH 6 WHEELS - RED 3. Lumbar spondylosis - ICD9: 721.3, ICD10: M47.816 - WALKER ROLLATOR SEAT WITH 6 WHEELS - RED - CANE, ADJUSTABLE 4. Gait instability - ICD9: 781.2, ICD10: R26.81 - WALKER ROLLATOR SEAT WITH 6 WHEELS - RED - CANE, ADJUSTABLE 5. Weight loss - ICD9: 783.21, ICD10: R63.4 Discussed chronic cannabis as a factor, hx of meth use in past Has not completed outstanding lab from last visit re: weight loss. - TOX SCREEN ROUT UR - PAIN PANEL, UR QUANT Jaimee Palomares PA-C documented in this encounter [facility] 09-01-2022 Miscellaneous Notes TC to pt, notified of results/provider response. She states she is still having issues daily with that breast. She has an appt with Faustino on Tuesday (09/03) so she will discuss with him at appt. Luis Mascorro LPN ----- Message from Memo Huber MD sent at 09/01/2022 2:49 PM EDT ----- Let her know was negative. If continues to have issues, let us know. documented in this encounter [facility] 09-01-2022 Note HNO ID: [id number] Author: Jenifer Escalante RDMS Service: ? Author Type: Cylinder Press Operator Type: Progress Notes Filed: 09/01/2022 2:51 PM Note Text: Radiology Service Progress Note PATIENT NAME: Mariluz Garcia DATE OF SERVICE: September 01, 2022 TIME: 2:51 PM PATIENT IDENTITY VERIFICATION COMPLETED USING TWO (2) IDENTIFIERS: Name and Date of confirmed by patient verbally. FALL SCREENING: Has the patient had 2 falls in the last year or 1 fall with injury or currently using an Ambulatory Assistive Device (Walker, Cane, Wheelchair, Crutches, etc.)? No PATIENT GENDER DATA: Female. status: : No status: NO. PATIENT RELEVANT IMPLANT DATA REVIEWED: Not Applicable RADIOLOGY DEPARTMENT: Ultrasound PERIPHERAL IV DATA: Not applicable SIGNED BY: Jenifer Escalante RDMS RVT September 01, 2022 2:51 PM [facility] 09-01-2022 Note HNO ID: [id number] Author: LEONID MillerR) Service: ? Author Type: Technologist Type: Progress Notes Filed: 09/01/2022 1:58 PM Note Text: Radiology Service Progress Note PATIENT NAME: Mariluz Garcia DATE OF SERVICE: September 01, 2022 TIME: 1:58 PM PATIENT IDENTITY VERIFICATION COMPLETED USING TWO (2) IDENTIFIERS: Name and Date of confirmed by patient verbally. FALL SCREENING: Has the patient had 2 falls in the last year or 1 fall with injury or currently using an Ambulatory Assistive Device (Walker, Cane, Wheelchair, Crutches, etc.)? No PATIENT GENDER DATA: Female. status: : No status: NO. PATIENT RELEVANT IMPLANT DATA REVIEWED: Not Applicable RADIOLOGY DEPARTMENT: Mammography PERIPHERAL IV DATA: Not applicable SIGNED BY: RT Angela(R) September 01, 2022 1:58 PM [facility] 09-01-2022 History of Present illness Narrative Radiology Service Progress Note PATIENT NAME: Mariluz Garcia DATE OF SERVICE: September 01, 2022 TIME: 2:51 PM PATIENT IDENTITY VERIFICATION COMPLETED USING TWO (2) IDENTIFIERS: Name and Date of confirmed by patient verbally. FALL SCREENING: Has the patient had 2 falls in the last year or 1 fall with injury or currently using an Ambulatory Assistive Device (Walker, Cane, Wheelchair, Crutches, etc.)? No PATIENT GENDER DATA: Female. status: : No status: NO. PATIENT RELEVANT IMPLANT DATA REVIEWED: Not Applicable RADIOLOGY DEPARTMENT: Ultrasound PERIPHERAL IV DATA: Not applicable SIGNED BY: Jenifer Escalante RDMS RVT September 01, 2022 2:51 PM documented in this encounter [facility] 09-01-2022 History of Present illness Narrative Radiology Service Progress Note PATIENT NAME: Mariluz Garcia DATE OF SERVICE: September 01, 2022 TIME: 1:58 PM PATIENT IDENTITY VERIFICATION COMPLETED USING TWO (2) IDENTIFIERS: Name and Date of confirmed by patient verbally. FALL SCREENING: Has the patient had 2 falls in the last year or 1 fall with injury or currently using an Ambulatory Assistive Device (Walker, Cane, Wheelchair, Crutches, etc.)? No PATIENT GENDER DATA: Female. status: : No status: NO. PATIENT RELEVANT IMPLANT DATA REVIEWED: Not Applicable RADIOLOGY DEPARTMENT: Mammography PERIPHERAL IV DATA: Not applicable SIGNED BY: RT Angela(Misty) September 01, 2022 1:58 PM documented in this encounter [facility] 08-27-2022 Miscellaneous Notes Spoke to patient & advised provider just wanted to have a routine f/u in 3 months per her request & will decide if the 6 months appt at that time is necessary. Patient verbalized understanding of instructions. Scheduled with 11/25 @ 145PM. Trina Newton MA Patient returned call and went over notes below and patient is asking why did COMMUNICATION ARTS LECTURER change her mind and now wants her back in 3 months? She said was told 6 months before she left her appt yesterday. TC to SANDRA Alexandra to have patient call the office back. Patient originally scheduled for 6 months f/u (please keep scheduled at this time) however per Urvashi Hughes please assist patient with scheduling a 3 month follow up too. Trina Newton MA documented in this encounter [facility] 08-26-2022 Note HNO ID: [id number] Author: Urvashi Hughes APRN.SENIOR CONTRACTS ADMINISTRATOR Service: ? Author Type: Nurse Practitioner Type: Progress Notes Filed: 08/26/2022 1:20 PM Note Text: [facility] [place] Follow-up Visit Follow-up note August 26, 2022 HPI: Ms. Garcia presents today for a follow-up visit. Per her previous visit with Dr. Leahy on 05/07/22: ASSESSMENT/PLAN: 1. Cognitive impairment - ICD9: 294.9, ICD10: R41.89 (primary diagnosis) 2. Alcohol abuse, in remission - ICD9: 305.03, ICD10: F10.11 3. Polysubstance abuse (HCC) - ICD9: 305.90, ICD10: F19.10 4. Polypharmacy - ICD9: V58.69, ICD10: Z79.899 Patient with complaints of cognitive impairment for which she has already undergone some degree of workup including MRI brain that per report and review was unremarkable for etiology of complaints. Recent TSH unremarkable. MOCA performed today in office normal. Neuro exam non focal including no abnormal eye movements or ataxia. Patient concerned for Wernicke-Korsakoff's, but exam is not suggestive of either. Appears cognition and mental status acutally fluctuating rather than progressive declining and I suspect that this is either due to metabolic derangements, pseudodementia with known mood disorders and possible auditory hallucinations, polypharmacy and possible med non-compliance with pt on multiple sedating meds, possible ETOH use (known history of abuse) and polysubstance abuse with pt admitting to and having + tox screen x2 over the past 4-5 months as above. At this time, will proceed with workup for other metabolic causes of symptoms: - VITAMIN B12 BLOOD - VITAMIN B1 (THIAMINE), WHOLE BLOOD - T4 FREE/FREE THYROX - TSH BLD - AMMONIA BLD Given normal MOCA and multiple known risks for cognitive impairment, would not recommend neurocognitive testing at this time. If metabolic workup above unremarkable, then recommend follow up with psychiatry as well as need for patient to cease both ETOH and drug use (latter encouraged during visit). Also would recommend those prescribing, attempt to reduce the number of or dosing of meds that might result in sedation, confusion or neuro depression. Pt will follow up with us next year to confirm no decline in function. If no changes at that time can follow up prn. She states her memory continues to get worse day by day. Feels both short and alf memory have changed. States she can remember her childhood but cannot remember past her 20's. Forgetting names of friends. Stays along a lot. Not currently driving; no vehicle. Not getting lost in familiar places. Often losing objects; three times this morning. Forgot her cane, her coffee (got distracted), and her tea. Sometimes forgetting medications; has a punch pack. States she slept four hours with seroquel and trazodone. Slept soundly during that time. Woke up with energy but this dwindled. Hallucinations; seeing and hearing things. States this has happened before taking psych meds. Currently drinking alcohol. States she relapsed. Currently smoking marijuana for pain. Currently taking B12 supplement. Started by PCP. Feels she has more energy. Follows with psychiatry every other week. MOCA 08/26/22 Visuospatial/exec (5-5) (3/5) Naming (0-3) (3/3) Memory Words, up to 2 trials: Face, Velvet, Sabianist, Yudith, Red (no points) 3/5 first try, 5/5 second try Attention forwards: 2 1 8 5 4 (0-1) (1/1) Attention backwards: 7 4 2 (0-1) (1/1) Tap for the A : F B A C M N A A J K L B A F A K D E A A A J A M O F A A B (1 point if 0 or 1 error) (0/1) Serial subtraction by 7: [id number] (3 points for correct 4 or 5; 2 points for 2 or 3 correct; 1 point for 1 correct) [id number] (3/3) Language: repeat: I only know that Laith is the one to help today (0-1) (06/20) Language: repeat: The cat always hid under the couch when dogs were in the room (0-1) (06/20) Fluency: max words beginning with the letter F (1 point if 11 or more words) lllll lllll ll (06/20) Abstraction: practice banana-orange=fruit. Then train-bicycle (1) AND watch-ruler (1) total: (2) (2/2) Delayed recall: recall words: face, velvet, worship, yudith, red (0-5) (5/5) Orientation: date(1), month(1), year(1), day(1), place(1), city(1) max 6 points (6/6) Level of education: add 1 if did not receive more than a HS education +1 Total Score max 30 (+1) (28) PAST MEDICAL HISTORY Diagnosis Date Alcohol abuse Anemia Back pain Blood dyscrasia Cervical spondylosis without myelopathy Cholecystitis 04/2020 Chronic hepatitis C (HCC) DDD (degenerative disc disease), lumbar Depression with anxiety Drug use 08/15/2018 ecstacy Emphysema of lung (HCC) Encounter for support and coordination of transition of care 05/15/2020 HOSPITAL/ER FOLLOW UP Which facility: [facility] Dates of visit: 05/10-05/13/2020 Preadmission evaluation: ER with right-sided abdominal pain over 2-1/2 hours, 10 out of 10. Worse (more content not included)... [facility] 08-26-2022 History of Present illness Narrative Images from the original note were not included. [facility] [place] Follow-up Visit Follow-up note August 26, 2022 HPI: Ms. Garcia presents today for a follow-up visit. Per her previous visit with Dr. Leahy on 05/07/22: ASSESSMENT/PLAN: 1. Cognitive impairment - ICD9: 294.9, ICD10: R41.89 (primary diagnosis) 2. Alcohol abuse, in remission - ICD9: 305.03, ICD10: F10.11 3. Polysubstance abuse (HCC) - ICD9: 305.90, ICD10: F19.10 4. Polypharmacy - ICD9: V58.69, ICD10: Z79.899 Patient with complaints of cognitive impairment for which she has already undergone some degree of workup including MRI brain that per report and review was unremarkable for etiology of complaints. Recent TSH unremarkable. MOCA performed today in office normal. Neuro exam non focal including no abnormal eye movements or ataxia. Patient concerned for Wernicke-Korsakoff's, but exam is not suggestive of either. Appears cognition and mental status acutally fluctuating rather than progressive declining and I suspect that this is either due to metabolic derangements, pseudodementia with known mood disorders and possible auditory hallucinations, polypharmacy and possible med non-compliance with pt on multiple sedating meds, possible ETOH use (known history of abuse) and polysubstance abuse with pt admitting to and having + tox screen x2 over the past 4-5 months as above. At this time, will proceed with workup for other metabolic causes of symptoms: - VITAMIN B12 BLOOD - VITAMIN B1 (THIAMINE), WHOLE BLOOD - T4 FREE/FREE THYROX - TSH BLD - AMMONIA BLD Given normal MOCA and multiple known risks for cognitive impairment, would not recommend neurocognitive testing at this time. If metabolic workup above unremarkable, then recommend follow up with psychiatry as well as need for patient to cease both ETOH and drug use (latter encouraged during visit). Also would recommend those prescribing, attempt to reduce the number of or dosing of meds that might result in sedation, confusion or neuro depression. Pt will follow up with us next year to confirm no decline in function. If no changes at that time can follow up prn. She states her memory continues to get worse day by day. Feels both short and alf memory have changed. States she can remember her childhood but cannot remember past her 20's. Forgetting names of friends. Stays along a lot. Not currently driving; no vehicle. Not getting lost in familiar places. Often losing objects; three times this morning. Forgot her cane, her coffee (got distracted), and her tea. Sometimes forgetting medications; has a punch pack. States she slept four hours with seroquel and trazodone. Slept soundly during that time. Woke up with energy but this dwindled. Hallucinations; seeing and hearing things. States this has happened before taking psych meds. Currently drinking alcohol. States she relapsed. Currently smoking marijuana for pain. Currently taking B12 supplement. Started by PCP. Feels she has more energy. Follows with psychiatry every other week. MOCA 08/26/22 Visuospatial/exec (5-5) (08/22) Naming (0-3) (08/20) Memory Words, up to 2 trials: Face, Velvet, Sabianist, Yudith, Red (no points) 3/5 first try, 5/5 second try Attention forwards: 2 1 8 5 4 (0-1) (06/20) Attention backwards: 7 4 2 (0-1) (06/20) Tap for the A : F B A C M N A A J K L B A F A K D E A A A J A M O F A A B (1 point if 0 or 1 error) (0/1) Serial subtraction by 7: [id number] (3 points for correct 4 or 5; 2 points for 2 or 3 correct; 1 point for 1 correct) [id number] (08/20) Language: repeat: I only know that Laith is the one to help today (0-1) (06/20) Language: repeat: The cat always hid under the couch when dogs were in the room (0-1) (06/20) Fluency: max words beginning with the letter F (1 point if 11 or more words) lllll lllll ll (06/20) Abstraction: practice banana-orange=fruit. Then train-bicycle (1) AND watch-ruler (1) total: (2) (2/2) Delayed recall: recall words: face, velvet, worship, yudith, red (0-5) (5/5) Orientation: date(1), month(1), year(1), day(1), place(1), city(1) max 6 points (6/6) Level of education: add 1 if did not receive more than a HS education +1 Total Score max 30 (+1) (28) PAST MEDICAL HISTORY Diagnosis Date Alcohol abuse Anemia Back pain Blood dyscrasia Cervical spondylosis without myelopathy Cholecystitis 04/2020 Chronic hepatitis C (HCC) DDD (degenerative disc disease), lumbar Depression with anxiety Drug use 08/15/2018 ecstacy Emphysema of lung ([facility]) Encounter for support and coordination of transition of care 05/15/2020 HOSPITAL/ER FOLLOW UP Which facility: [facility] Dates of visit: 05/10-05/13/2020 Preadmission evaluation: ER with right-sided abdominal pain over 2-1/2 hours, 10 out of 10. Worse with coughing. States she vomited 20 times the day before, with episodes of diarrhea over the past 2 days. Had used Imodium which improved diarrhea. No known exposures to Covid. Also identified chest pain which started a Encounter for support and coordination of transition of care 05/02/2021 Hospital discharge summary: Date of admission 05/01/2021 Date of discharge: Facility: [facility] 05/01/2021 presented to the emergency room with acute alcohol intoxication, initial alcohol level 7-8. Acknowledges over the last 5 months drinking 15 packs a day at 8% alcohol (natty daddy). Vital signs 96.6 F-78-18-111/73-98%. Appearance was no acute distress. WBC 7.9-Hgb 13.8-HCT 39 Encounter for support and coordination of transition of care 05/05/2022 05/05/2022 patient called squad, transported to [facility] with lightheadedness and multiple syncopal episodes one of them resulting in injury to her right foot. GERD (gastroesophageal reflux disease) Hyperglycemia Hypertension Lung abscess ([facility]) saw Néstor Li and Dr. Zarate. Major depression Mild protein-calorie malnutrition ([facility]) 08/26/2020 Obesity PE (pulmonary thromboembolism) ([facility]) PTSD (post-traumatic stress disorder) Snoring Tobacco use disorder Vasovagal syncope PAST SURGICAL HISTORY Procedure Laterality Date CARPAL TUNNEL Left 09/2015 COLONOSCOPY 11/27/2021 COLONOSCOPY FLX DX W/COLLJ SPEC WHEN PFRMD several years ago Colonoscopy COLONOSCOPY FLX DX W/COLLJ SPEC WHEN PFRMD 10/02/2014 Colonoscopy ESOPHAGOGASTRODUODENOSCOPY TRANSORAL DIAGNOSTIC 10/02/2014 EGD HEART CATHETERIZATION 10/30/2013 normal coronary arteries HYSTERECTOMY HX 2004 menorrhagia. JONAS/right oophorectomy. bowel adhesion HYSTERECTOMY HX 1989' LAPAROSCOPY SURG CHOLECYSTECTOMY 05/12/2020 NEUROPLASTY &/TRANSPOS MEDIAN NRV CARPAL TUNNE Right 11/21/2015 Carpal tunnel decomp OVARIAN CYSTECTOMY UNI/BI 1996 left oophorectomy and 20# cyst PAST SURGICAL HISTORY OF 07/2012 Lumbar discectomy L3-L4 PAST SURGICAL HISTORY OF 09/2012 repeat lumbar surgery PAST SURGICAL HISTORY OF Right 12/2021 Wrist due to fracture (steel plate and 17 screws) SKIN GRAFT,SCALP,ARMS,LEGS 12/2013 bilateral posterior thigh autograft, fell in firepit TONSILLECTOMY & ADENOIDECTOMY <AGE 10 1977 Current Outpatient Medications on File Prior to Visit Medication Sig ibuprofen (MOTRIN) 800 mg tablet Take 1 tablet by mouth every 8 hours as needed for pain. Take with food. Cholecalciferol, Vitamin D3, (VITAMIN D) 25 mcg (1,000 unit) cap Take 1 capsule by mouth once daily. omeprazole (PRILOSEC) 20 mg capsule TAKE 1 CAPSULE BY MOUTH DAILY albuterol HFA (VENTOLIN HFA) 90 mcg/actuation inhaler Inhale 2 Puffs as instructed every 4 hours as needed for wheezing/shortness of breath. baclofen (LIORESAL) 10 mg tablet Take 1 tablet by mouth twice daily as needed. atorvastatin (LIPITOR) 40 mg tablet Take 1 tablet by mouth daily at bedtime. pregabalin (LYRICA) 150 mg capsule Take one pill three times per day Do not start before July 26, 2022. mirabegron (MYRBETRIQ) 25 mg Tb24 Take 1 tablet by mouth once daily. thiamine (VITAMIN B1) 100 mg tablet Take 1 tablet by mouth once daily. tiotropium bromide (SPIRIVA RESPIMAT) 2.5 mcg/actuation inhaler Inhale 2 Puffs as instructed once daily. ferrous sulfate 325 mg (65 mg iron) tablet Take 1 tablet by mouth twice daily. budesonide-formoterol (SYMBICORT) 160-4.5 mcg/actuation inhaler Inhale 2 Puffs as instructed twice daily. L. acidophilus-L. rhamnosus (FLORAJEN WOMEN) 15 billion cell cap Take 1 capsule by mouth once daily. QUEtiapine (SEROQUEL) 300 mg tablet Take 300 mg by mouth once daily. cyanocobalamin (VITAMIN B-12) 1,000 mcg tab Take 1 tablet by mouth once daily. lisinopril (ZESTRIL, PRINIVIL) 20 mg tablet Take 1 tablet by mouth once daily. VITAMIN C 500 mg tablet oxybutynin ER (DITROPAN XL) 10 mg 24 hr tablet Take 1 tablet by mouth once daily. albuterol (PROVENTIL) 2.5 mg /3 mL (0.083 %) nebulizer solution Use 3 mL via nebulizer every 4 hours as needed for wheezing/shortness of breath. Use over 5-15minutes. buPROPion SR (ZYBAN SR; WELLBUTRIN SR) 150 mg 12 hr tablet Nebulizers Use as directed. levothyroxine (SYNTHROID) 25 mcg tablet Take 25 mcg by mouth daily before breakfast. FLUoxetine (PROZAC) 20 mg capsule Take 20 mg by mouth once daily. COMPOUNDED PRESCRIPTION Standard size Rollator Walker #1 Dx Large Blood Pressure Cuff #1 M51.36 DDD (degenerative disc disease), lumbar (primary encounter diagnosis) I10 Essential hypertension benztropine (COGENTIN) 0.5 mg tablet Take 0.5 mg by mouth daily at bedtime. COMPOUNDED PRESCRIPTION ADJUSTABLE CANE DX M51.36 No current facility-administered medications on file prior to visit. Social History Tobacco Use Smoking status: Every Day Packs/day: 2.00 Years: 32.00 Pack years: 64.00 Types: Cigarettes Smokeless tobacco: Never Tobacco comments: started smoking 12yr, 3 cigs daily Vaping Use Vaping Use: Never used Substance Use Topics Alcohol use: Not Currently Drug use: Yes Types: Marijuana ALLERGIES Allergen Reactions Fentanyl Other: See Comments PATCH ONLY. Respiratory distress due to rapid absorption. Chantix [Vareniclin* Intolerance hallucinations Review of Systems: Cardiopulmonary: denies chest pain, palpitations Respiratory: + shortness of breath GI/: denies recent nausea, vomiting, diarrhea,+ constipation, incontinence Musculoskeletal: + weakness (L leg- uses can or walker) Neuro: denies tremors, loss of feeling, + dizziness, seizure, blackout, + paresthesia, facial paresthesia, facial weakness, difficulty in speech, slurring of words, dysarthria, dysphagia, + memory loss, + headache, vision changes, loss of hearing Physical Exam: 08/26/22 1003 BP: 129/96 Pulse: 74 Resp: 18 Temp: 36.6 C (97.8 F) TempSrc: Right Tympanic SpO2: 97% Weight: 61.2 kg (135 lb) Patient is alert and in no distress. Dress is appropriate. Mood is appropriate Breathing appears regular and unstressed Neurologic examination: MOCA above. CN: Pupils equal and reactive to light, extraocular movements intact with no nystagmus, face is symmetric with no facial droop, facial sensation intact bilaterally to light touch. V1-3, hearing intact bilaterally, symmetric evaluation of the soft palate, tongue is midline with no deviation, shoulder shrug is symmetric. Motor exam shows 5/5 strength symmetric through the upper and lower extremities in all groups tested with exception of L hip flexion which she reports is painful and unable to assess. Sensory intact to light touch in all extremities. Deep tendon reflexes are symmetric at the biceps, brachioradialis, triceps, patella, and achilles bilaterally. Coordination: No dysmetria on finger to nose. No tremors noted. No drift seen. Gait normal in stance and pattern. Tandem with imbalance. Labs/studies: Component Latest Ref Rng & Units 03/09/2022 05/07/2022 WBC 3.70 - 11.00 k/uL 7.38 RBC 3.90 - 5.20 m/uL 4.13 Hemoglobin 11.5 - 15.5 g/dL 13.1 Hematocrit 36.0 - 46.0 % 40.5 MCV 80.0 - 100.0 fL 98.1 MCH 26.0 - 34.0 pg 31.7 MCHC 30.5 - 36.0 g/dL 32.3 RDW-CV 11.5 - 15.0 % 12.5 Platelet Count 150 - 400 k/uL 241 MPV 9.0 - 12.7 fL 12.0 Neut% % 62.5 Abs Neut (ANC) 1.45 - 7.50 k/uL 4.61 Lymph% % 23.7 Abs Lymph 1.00 - 4.00 k/uL 1.75 Finney% % 9.1 Abs Finney <0.87 k/uL 0.67 Eosin% % 4.1 Abs Eosin <0.46 k/uL 0.30 Baso% % 0.5 Abs Baso <0.11 k/uL 0.04 Immature Gran % % 0.1 IMMATURE GRANS (ABS) <0.10 k/uL <0.03 NRBC /100 WBC 0.0 Absolute nRBC <0.01 k/uL <0.01 DTYPE Auto Protein, Total 6.3 - 8.0 g/dL 7.1 Albumin 3.9 - 4.9 g/dL 3.6 (L) Calcium 8.5 - 10.2 mg/dL 9.2 Bilirubin, Total 0.2 - 1.3 mg/dL 0.4 Alkaline Phosphatase 34 - 123 U/L 70 AST 13 - 35 U/L 22 ALT 7 - 38 U/L 17 Glucose 74 - 99 mg/dL 72 (L) BUN 7 - 21 mg/dL 9 Creatinine 0.58 - 0.96 mg/dL 0.57 (L) Sodium 136 - 144 mmol/L 139 Potassium 3.7 - 5.1 mmol/L 4.4 Chloride 97 - 105 mmol/L 104 CO2 22 - 30 mmol/L 27 Anion Gap 9 - 18 mmol/L 8 (L) eGFR >=60 mL/min/1.73m 109 Lead <=4.9 ug/dL <2.0 Mercury Blood <=10.0 ug/L <2.5 Arsenic, Blood <=12.0 ug/L <10.0 Syphilis Screen Result Nonreactive Nonreactive Syphilis Interpretation Cannot exclude recent Treponemal infection if specimen collected within 7-10 days after appearance of suspect lesions or 2-3 weeks after an exposure. Clinical correlation is required. Lyme Abs, IgG/IgM Negative Negative Vitamin B12 232 - 1,245 pg/mL 311 Vitamin B1 (TDP), Whole Blood 84.3 - 213.3 nmol/L 221.0 (H) Free T4 0.9 - 1.7 ng/dL 1.1 TSH 0.270 - 4.200 mIU/L 1.110 Ammonia 11 - 51 umol/L 30 Assessment/Plan: R41.89 Cognitive impairment (primary encounter diagnosis) F10.11 Alcohol abuse, in remission F19.10 Polysubstance abuse (HCC) Z79.899 Polypharmacy Comment: Patient previously seen for complaints of cognitive decline. MRI brain and TSH both unremarkable. Concern at time of previous appointment that metabolic derangements, pseudodementia, polypharmacy and medication noncompliance, EtOH use, and polysubstance abuse potentially all contributing to symptoms. Additional blood work completed since time of previous appointment with finding of low normal B12 level. She has since started supplementation with report of increased energy. Patient fidgeting/restless throughout exam, however, exam essentially unremarkable with exception of imbalance with tandem walk. She does report significant LLE pain and typically uses a cane when ambulating. Unable to assess hip flexion as patient reports pain on exam. Otherwise, strength intact throughout. No nystagmus noted on exam. MoCA completed today with score of 28/30 (points missed on drawing). At this time would recommend continued follow up with psychiatry as well as cessation of both ETOH and drug use. Also recommend continuing to follow with providers to attempt to reduce the number of medications that may lead to sedation or confusion. Despite minimal decline in MOCA score pt reports progressive decline of memory at home and therefore will have her follow up in three months for repeat MOCA and evaluation. If at that time sx remain stable she can then follow up prn. If further decline may consider formal neurocognitive testing. Urvashi Hughes APRN.ALYSSA I spent a total of 45 minutes on the date of the service which included preparing to see the patient, [id number] patient care, completing clinical documentation, obtaining and/or reviewing separately obtained history, performing a medically appropriate examination, and counseling and educating the patient/family/caregiver. documented in this encounter [facility] 08-17-2022 Miscellaneous Notes Patient has been identified by name and date of : Yes, Provider PAWAN Diane Date 08/17/22 Time 4:42 pm Patient phones for refill(s): Requested Prescriptions Pending Prescriptions Disp Refills ibuprofen (MOTRIN) 800 mg tablet 30 tablet 1 Sig: Take 1 tablet by mouth every 8 hours as needed for pain. Take with food. Date of last office visit in primary care: 08/16/22 Last 2 Encounter Wt Readings: Date: Wt: 08/16/2022 64.4 kg (142 lb) 07/29/2022 61.7 kg (136 lb) Previous labs/tests for medication: Not applicable Thank you. Sruthi Piña LPN documented in this encounter [facility] 08-16-2022 Miscellaneous Notes Last OV: 08/16/22 Patient has been identified by name and date of : Yes Requested Prescriptions Pending Prescriptions Disp Refills Cholecalciferol, Vitamin D3, (VITAMIN D) 25 mcg (1,000 unit) cap 90 capsule 1 Sig: Take 1 capsule by mouth once daily. RX INSTRUCTIONS: Pharmacy initiated this request. No need to notify patient. Zoraida Garcia LPN documented in this encounter [facility] 08-16-2022 Note HNO ID: [id number] Author: Jaimee Palomares PA-C Service: ? Author Type: Physician Protection Specialist Type: Progress Notes Filed: 08/16/2022 1:40 PM Note Text: 52 year old female with c/o Cognitive impairment, mild, so stated (primary encounter diagnosis) 06/24/2022 CT brain without contrast ER [facility]: Chronic involutional changes, partial opacification of right maxillary sinus, otherwise normal. No acute findings, WNL for age. Hyperlipidemia: Current medication Atorvasttin 40mg daily HS Taking medication consistently No Observing low cholesterol high fiber diet No Muscle aches No Stomach complaints/ diarrhea No Last 2 Lipids: Component Latest Ref Rng AND Units 05/01/2016 02/13/2019 Cholesterol, Total <200 mg/dL 150 Triglyceride <150 mg/dL 355 (H) 68 HDL Cholesterol >39 mg/dL 33 80 LDL Cholesterol <100 mg/dL 56 Non HDL Cholesterol <130 mg/dL 70 Fasting Time hrs 13 VLDL Cholesterol <30 mg/dL 71 14 TC:HDL Ratio <5.10 1.88 LDL:HDL Ratio <2.54 0.70 Cholesterol Bld 0 - 199 mg/dL 200 (H) CHOL/HDL 1.8 - 5.3 6.1 (H) LDL Calculated mg/dL 96 LDL/HDL 0.6 - 3.6 2.9 Weight loss Vitals 05/07/2022 05/14/2022 05/25/2022 06/03/2022 07/29/2022 07/29/2022 08/16/2022 WEIGHT in POUNDS 150 lb 145 lb 149 lb 6.4 oz 136 lb 142 lb Instead of eating once a day, eating twice a day and snacking more. Has not completed labwork. 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 Interval history: none. Current medications: Albuterol 90mcg 2 uffs q4h prn Albuterol 0.083% neb Q4h prn Worsening shortness of breath: doing okay. Loves portable nebulizer. Cough: No. Wheezing: Yes. Smoking: cutting down, 3 cigs / day. Compliant with medications: No. Using rescue inhaler: twice day. 05/26/[address] WO was intended for 3mo f/u : Bilateral foci of atelectasis. Borderline mediastinal lymph nodes. No suspicious mass or adenopathy. 05/05/2022 CTA chest [facility] admit: Mild peribronchial thickening with layered fluid or debris in right lung bronchi compatible with bronchitis/bronchiolitis. Scattered tree-in-bud central lobar nodularity in the left lung may be scattered aspiratory atypical infection, largest nodule 8 mm groundglass nodule with 4 mm solid component: Recommend CT follow-up 3 months. Alcohol abuse Relapsed 3 weeks ago 1 day, 3-4 beers. Talked with sponsor. Back on track. Feels a lot of things need to change to stay sober. Tried meth for the first time. Hyperglycemia 5.4 (11/12/2021) Chronic active hepatitis c (hcc) 03/12/2022 sofosbuvir-velpatasvir 400-100mg daily #28/2 completed. Josué Blevins MD Gastroesophageal reflux disease without esophagitis History of colonic polyps Current medication: Omeprazole 20mg daily AC Current symptoms: doing well. Last Mg level if on PPI chronically: not recently. Heartburn is controlled: a little, rids with a belch. Dysphagia: bigger chunks get stuck, has to drink to get it to pass. Bloody or black stools: No. Bowel changes: No. Last EGD and/or colonoscopy: 11/27/2021: hemorrhoids, no specimens, surveillance 5 years. Delusional disorder (hcc) Psych Dr. Marrufo Current medications: Quetiapine 300mg daily Benztropine 0.5mg daily Bupropion SR 150mg q12h Tremors persist, slightly worse. Lumbar spondylosis Spinal stenosis, lumbar region, without neurogenic claudication Chronic midline low back pain with left-sided sciatica Radiculopathy, lumbar region Pain management Dr. Troy, [facility] Current medications: Baclofen 10mg twice a day as needed Pregabalin 150mg twice a day Consult PT Can't sleep. Shooting pain from left buttock down leg in to left foot. Loosing hearing healthcare practitioner with hands Constant pain. Taking everything she can. Tearful, c/o no one treating her pain. Wants medication for pain. States she wants surgery: see neurosurgeon at [facility] 06/24/2022 CT cervical spine without contrast [facility] ED, comparison 05/05/2022: Degenerative changes of anterior atlantoaxial articulation Straightening of normal cervical lordosis C2-3 normal C3-4 facet joint with osteoarthritis and hypertrophy worse on left side C4-5 minimal anterior listhesis C4 on C5, facet joint osteoarthritis and hypertrophy worse on left. Uncovertebral arthrosis, moderate degree of bilateral neuroforaminal stenosis. C5-6 moderate degree of disc space narrowing, uncovertebral arthrosis, facet joint osteoarthritis worse on right side with right neuroforaminal stenosis. C6-7: Disc space narrowing, anterior spondylolysis C7-T1 normal Normal visualized soft tissue structures 02/24/2022 transforaminal injection L5-S1 bilateral Dr. Troy 07/05/2022 was to have another injection but cancelled by insurance. Stasis edema of both lower extremities Resolved HISTORIES FAMILY HISTORY Problem Relation Age of Onset Hy (more content not included)... [facility] 08-16-2022 Instructions Jaimee Palomares PA-C - 08/16/2022 11:47 AM EST See piriformis stretches; try 2-3 times a day. documented in this encounter [facility] 08-16-2022 History of Present illness Narrative 52 year old female with c/o Cognitive impairment, mild, so stated (primary encounter diagnosis) 06/24/2022 CT brain without contrast ER [facility]: Chronic involutional changes, partial opacification of right maxillary sinus, otherwise normal. No acute findings, WNL for age. Hyperlipidemia: Current medication Atorvasttin 40mg daily HS Taking medication consistently No Observing low cholesterol high fiber diet No Muscle aches No Stomach complaints/ diarrhea No Last 2 Lipids: Component Latest Ref Rng & Units 05/01/2016 02/13/2019 Cholesterol, Total <200 mg/dL 150 Triglyceride <150 mg/dL 355 (H) 68 HDL Cholesterol >39 mg/dL 33 80 LDL Cholesterol <100 mg/dL 56 Non HDL Cholesterol <130 mg/dL 70 Fasting Time hrs 13 VLDL Cholesterol <30 mg/dL 71 14 TC:HDL Ratio <5.10 1.88 LDL:HDL Ratio <2.54 0.70 Cholesterol Bld 0 - 199 mg/dL 200 (H) CHOL/HDL 1.8 - 5.3 6.1 (H) LDL Calculated mg/dL 96 LDL/HDL 0.6 - 3.6 2.9 Weight loss Vitals 05/07/2022 05/14/2022 05/25/2022 06/03/2022 07/29/2022 07/29/2022 08/16/2022 WEIGHT in POUNDS 150 lb 145 lb 149 lb 6.4 oz 136 lb 142 lb Instead of eating once a day, eating twice a day and snacking more. Has not completed labwork. 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 Interval history: none. Current medications: Albuterol 90mcg 2 uffs q4h prn Albuterol 0.083% neb Q4h prn Worsening shortness of breath: doing okay. Loves portable nebulizer. Cough: No. Wheezing: Yes. Smoking: cutting down, 3 cigs / day. Compliant with medications: No. Using rescue inhaler: twice day. 05/26/[address] WO was intended for 3mo f/u : Bilateral foci of atelectasis. Borderline mediastinal lymph nodes. No suspicious mass or adenopathy. 05/05/2022 CTA chest [facility] admit: Mild peribronchial thickening with layered fluid or debris in right lung bronchi compatible with bronchitis/bronchiolitis. Scattered tree-in-bud central lobar nodularity in the left lung may be scattered aspiratory atypical infection, largest nodule 8 mm groundglass nodule with 4 mm solid component: Recommend CT follow-up 3 months. Alcohol abuse Relapsed 3 weeks ago 1 day, 3-4 beers. Talked with sponsor. Back on track. Feels a lot of things need to change to stay sober. Tried meth for the first time. Hyperglycemia 5.4 (11/12/2021) Chronic active hepatitis c (hcc) 03/12/2022 sofosbuvir-velpatasvir 400-100mg daily #28/ completed. Josué Blevins MD Gastroesophageal reflux disease without esophagitis History of colonic polyps Current medication: Omeprazole 20mg daily AC Current symptoms: doing well. Last Mg level if on PPI chronically: not recently. Heartburn is controlled: a little, rids with a belch. Dysphagia: bigger chunks get stuck, has to drink to get it to pass. Bloody or black stools: No. Bowel changes: No. Last EGD and/or colonoscopy: 11/27/2021: hemorrhoids, no specimens, surveillance 5 years. Delusional disorder (hcc) Psych Dr. Marrufo Current medications: Quetiapine 300mg daily Benztropine 0.5mg daily Bupropion SR 150mg q12h Tremors persist, slightly worse. Lumbar spondylosis Spinal stenosis, lumbar region, without neurogenic claudication Chronic midline low back pain with left-sided sciatica Radiculopathy, lumbar region Pain management Dr. Troy, [facility] Current medications: Baclofen 10mg twice a day as needed Pregabalin 150mg twice a day Consult PT Can't sleep. Shooting pain from left buttock down leg in to left foot. Loosing hearing healthcare practitioner with hands Constant pain. Taking everything she can. Tearful, c/o no one treating her pain. Wants medication for pain. States she wants surgery: see neurosurgeon at [facility] 06/24/2022 CT cervical spine without contrast [facility] ED, comparison 05/05/2022: Degenerative changes of anterior atlantoaxial articulation Straightening of normal cervical lordosis C2-3 normal C3-4 facet joint with osteoarthritis and hypertrophy worse on left side C4-5 minimal anterior listhesis C4 on C5, facet joint osteoarthritis and hypertrophy worse on left. Uncovertebral arthrosis, moderate degree of bilateral neuroforaminal stenosis. C5-6 moderate degree of disc space narrowing, uncovertebral arthrosis, facet joint osteoarthritis worse on right side with right neuroforaminal stenosis. C6-7: Disc space narrowing, anterior spondylolysis C7-T1 normal Normal visualized soft tissue structures 02/24/2022 transforaminal injection L5-S1 bilateral Dr. Troy 07/05/2022 was to have another injection but cancelled by insurance. Stasis edema of both lower extremities Resolved HISTORIES FAMILY HISTORY Problem Relation Age of Onset Hypertension Mother Cancer Mother lung, metastatic Heart Father Heart Maternal Grandmother Stroke Maternal Grandmother Colon Cancer No Family History PAST MEDICAL HISTORY Diagnosis Date Alcohol abuse Anemia Back pain Blood dyscrasia Cervical spondylosis without myelopathy Cholecystitis 04/2020 DDD (degenerative disc disease), lumbar Depression with anxiety Drug use 08/15/2018 ecstacy Emphysema of lung ([facility]) Encounter for support and coordination of transition of care 05/15/2020 HOSPITAL/ER FOLLOW UP Which facility: [facility] Dates of visit: 05/10-05/13/2020 Preadmission evaluation: ER with right-sided abdominal pain over 2-1/2 hours, 10 out of 10. Worse with coughing. States she vomited 20 times the day before, with episodes of diarrhea over the past 2 days. Had used Imodium which improved diarrhea. No known exposures to Covid. Also identified chest pain which started a Encounter for support and coordination of transition of care 05/02/2021 Hospital discharge summary: Date of admission 05/01/2021 Date of discharge: Facility: [facility] 05/01/2021 presented to the emergency room with acute alcohol intoxication, initial alcohol level 7-8. Acknowledges over the last 5 months drinking 15 packs a day at 8% alcohol (natty daddy). Vital signs 96.6 [id number]%. Appearance was no acute distress. WBC 7.9-Hgb 13.8-HCT 39 GERD (gastroesophageal reflux disease) Hyperglycemia Hypertension Lung abscess ([facility]) saw Néstor Li and Signs. Major depression Mild protein-calorie malnutrition ([facility]) 08/26/2020 Obesity PE (pulmonary thromboembolism) (HCC) PTSD (post-traumatic stress disorder) Snoring Tobacco use disorder PAST SURGICAL HISTORY Procedure Laterality Date CARPAL TUNNEL Left 09/2015 COLONOSCOPY 11/27/2021 COLONOSCOPY FLX DX W/COLLJ SPEC WHEN PFRMD several years ago Colonoscopy COLONOSCOPY FLX DX W/COLLJ SPEC WHEN PFRMD 10/02/2014 Colonoscopy ESOPHAGOGASTRODUODENOSCOPY TRANSORAL DIAGNOSTIC 10/02/2014 EGD HEART CATHETERIZATION 10/30/2013 normal coronary arteries HYSTERECTOMY HX 2004 menorrhagia. JONAS/right oophorectomy. bowel adhesion HYSTERECTOMY HX 1989' LAPAROSCOPY SURG CHOLECYSTECTOMY 05/12/2020 NEUROPLASTY &/TRANSPOS MEDIAN NRV CARPAL TUNNE Right 11/21/2015 Carpal tunnel decomp OVARIAN CYSTECTOMY UNI/BI 1996 left oophorectomy and 20# cyst PAST SURGICAL HISTORY OF 07/2012 Lumbar discectomy L3-L4 PAST SURGICAL HISTORY OF 09/2012 repeat lumbar surgery PAST SURGICAL HISTORY OF Right 12/2021 Wrist due to fracture (steel plate and 17 screws) SKIN GRAFT,SCALP,ARMS,LEGS 12/2013 bilateral posterior thigh autograft, fell in firepit TONSILLECTOMY & ADENOIDECTOMY <AGE 10 1979 Social History Tobacco Use Smoking status: Every Day Packs/day: 2.00 Years: 32.00 Pack years: 64.00 Types: Cigarettes Smokeless tobacco: Never Tobacco comments: started smoking 12yr, 3 cigs daily Vaping Use Vaping Use: Never used Substance Use Topics Alcohol use: Not Currently Drug use: Yes Types: Marijuana ACTIVE PROBLEM LIST Back Pain Ddd (Degenerative Disc Disease), Lumbar Emphysema of Lung (Hcc) Tobacco Use Disorder Hypertension Gerd (Gastroesophageal Reflux Disease) Carpal Tunnel Syndrome, Bilateral Obesity Anemia Radiculopathy, Lumbar Region Alcohol Abuse Chronic Midline Low Back Pain With Left-Sided Sciatica Pe (Pulmonary Thromboembolism) (Hcc) Hyperglycemia Stasis Edema Right Lumbar Radiculopathy Obesity, Class III, BMI >= 40 (morbid obesity) E66.01 Delusional Disorder (Hcc) Chronic Low Back Pain With Sciatica Abnormal Echocardiogram Chronic Left-Sided Low Back Pain With Sciatica Copd (Chronic Obstructive Pulmonary Disease) With Chronic Bronchitis (Hcc) Positive Urine Drug Screen Lumbar Spondylosis Cervical Spondylosis Without Myelopathy Other Chest Pain Stress Incontinence Chronic Active Hepatitis C (Hcc) History of Colonic Polyps Traumatic Closed Nondisp Torus Fracture of Distal Radial Metaphysis, Right, With Routine Healing, Subsequent Encounter Bacterial Vaginosis Spinal Stenosis, Lumbar Region, Without Neurogenic Claudication Cognitive Impairment, Mild, So Stated Current Outpatient Medications Medication Sig Dispense Refill omeprazole (PRILOSEC) 20 mg capsule TAKE 1 CAPSULE BY MOUTH DAILY 30 capsule 5 albuterol HFA (VENTOLIN HFA) 90 mcg/actuation inhaler Inhale 2 Puffs as instructed every 4 hours as needed for wheezing/shortness of breath. 3 Each 3 baclofen (LIORESAL) 10 mg tablet Take 1 tablet by mouth twice daily as needed. 60 tablet 2 atorvastatin (LIPITOR) 40 mg tablet Take 1 tablet by mouth daily at bedtime. 90 tablet 1 pregabalin (LYRICA) 150 mg capsule Take one pill three times per day Do not start before July 26, 2022. 90 capsule 5 mirabegron (MYRBETRIQ) 25 mg Tb24 Take 1 tablet by mouth once daily. 30 tablet 5 thiamine (VITAMIN B1) 100 mg tablet Take 1 tablet by mouth once daily. 30 tablet 5 tiotropium bromide (SPIRIVA RESPIMAT) 2.5 mcg/actuation inhaler Inhale 2 Puffs as instructed once daily. 1 Each 5 ferrous sulfate 325 mg (65 mg iron) tablet Take 1 tablet by mouth twice daily. 56 tablet 11 budesonide-formoterol (SYMBICORT) 160-4.5 mcg/actuation inhaler Inhale 2 Puffs as instructed twice daily. 1 Each 5 ibuprofen (MOTRIN) 800 mg tablet Take 1 tablet by mouth every 8 hours as needed for pain. Take with food. 30 tablet 1 L. acidophilus-L. rhamnosus (FLORAJEN WOMEN) 15 billion cell cap Take 1 capsule by mouth once daily. 30 capsule 1 QUEtiapine (SEROQUEL) 300 mg tablet Take 300 mg by mouth once daily. cyanocobalamin (VITAMIN B-12) 1,000 mcg tab Take 1 tablet by mouth once daily. 90 tablet 1 lisinopril (ZESTRIL, PRINIVIL) 20 mg tablet Take 1 tablet by mouth once daily. 30 tablet 5 sofosbuvir-velpatasvir 400-100 mg Take one tablet by mouth, with or without food, once daily same time of day 28 tablet 2 Cholecalciferol, Vitamin D3, (VITAMIN D) 25 mcg (1,000 unit) cap Take 1 capsule by mouth once daily. 90 capsule 1 VITAMIN C 500 mg tablet oxybutynin ER (DITROPAN XL) 10 mg 24 hr tablet Take 1 tablet by mouth once daily. 90 tablet 3 albuterol (PROVENTIL) 2.5 mg /3 mL (0.083 %) nebulizer solution Use 3 mL via nebulizer every 4 hours as needed for wheezing/shortness of breath. Use over 5-15minutes. 120 mL 5 buPROPion SR (ZYBAN SR; WELLBUTRIN SR) 150 mg 12 hr tablet Nebulizers Use as directed. 1 Each 0 levothyroxine (SYNTHROID) 25 mcg tablet Take 25 mcg by mouth daily before breakfast. FLUoxetine (PROZAC) 20 mg capsule Take 20 mg by mouth once daily. COMPOUNDED PRESCRIPTION Standard size Rollator Walker #1 Dx Large Blood Pressure Cuff #1 M51.36 DDD (degenerative disc disease), lumbar (primary encounter diagnosis) I10 Essential hypertension 1 Each 0 benztropine (COGENTIN) 0.5 mg tablet Take 0.5 mg by mouth daily at bedtime. COMPOUNDED PRESCRIPTION ADJUSTABLE CANE DX M51.36 1 Device 0 No current facility-administered medications for this visit. HEPATITIS B(1 of 3 - 3-dose series) Never done HEPATITIS A(1 of 2 - Risk 2-dose series) Never done SPIROMETRY Never done ALPHA-1 ANTITRYPSIN DEFICIENCY SCREENING Never done DEPRESSION ASSESSMENT due on 06/20/2022 MAMMOGRAM due on 11/10/2022 EXAM: BP 148/80 Pulse 74 Resp 18 Wt 64.4 kg (142 lb) SpO2 97% BMI 20.97 kg/m Pleasant adult woman, thin but stable, in no acute distress. Alert and oriented all spheres. Normal affect and cognition. Speech normal. No deficits to learning or comprehension. Skin warm, dry, pink to lips and nailbeds. Normal turgor. Respirations regular and unlabored. HEENT: NCAT. No scleral icterus or conjunctival injection. TM's clear. Nose and oropharynx free from injection or lesion. Oral membranes moist and pink. No cervical lymph nodes. Thyroid non-tender, no masses, or enlargement. Carotids pulses 2+/4+ without bruits. No JVD with HOB at 30 degrees. Chest is normal shape. Lungs are clear to all coreas with good air exchange through out. HRRR without murmur or gallop. No lifts, heaves, or rubs. + TTP in right piriformis, unable to tolerate myofascial release. Extrem: no clubbing or cyanosis. Edema: none. Extremities are warm and pink with prompt capillary refill. Difficulty with maintaining balance. ASSESSMENT/PLAN: 1. Cognitive impairment, mild, so stated - ICD9: 331.83, ICD10: G31.84 (primary diagnosis) Persistent at same level. 2. Hx pulmonary embolism - ICD9: V12.55, ICD10: Z86.711 No current sx. 3. Tobacco use disorder - ICD9: 305.1, ICD10: F17.200 - Cessation encouraged. - Physiologic and physical aspects of tobacco addiction as well as strategies for quitting were discussed. - Counseling was given focusing on the harmful effects of this addiction especially given the patient's medical condition(s) which will be worsened because of the chemicals in tobacco. - down to 3 cigarettes a day 4. COPD (chronic obstructive pulmonary disease) with chronic bronchitis (HCC) - ICD9: 491.20, ICD10: J44.9 Stable on meds- continue 5. Centrilobular emphysema (HCC) - ICD9: 492.8, ICD10: J43.2 Stable, follows with [facility] 6. Alcohol abuse - ICD9: 305.00, ICD10: F10.10 Drank some beer- claims one day and contacted sponsor. Also acknowledged using meth- also says just once. 7. Hyperglycemia - ICD9: 790.29, ICD10: R73.9 - HGB A1C 8. Chronic active hepatitis C (HCC) - ICD9: 070.54, ICD10: B18.2 Completed treatment. I don't see lab confirmation of cure. 9. Gastroesophageal reflux disease without esophagitis - ICD9: 530.81, ICD10: K21.9 - Discussed lifestyle modifications including limiting caffeine, no meals three hours before sleep, and head of bed elevation - Continue treatment with Prilosec 20 mg QD 10. History of colonic polyps - ICD9: V12.72, ICD10: Z86.010 stable 11. Lumbar spondylosis - ICD9: 721.3, ICD10: M47.816 Chronic pain. 12. Delusional disorder (HCC) - ICD9: 297.1, ICD10: F22 Stable, rosalino with Dr. Garay. 13. Stasis edema of both lower extremities - ICD9: 459.30, ICD10: I87.303 Resolved with weight loss 14. Spinal stenosis, lumbar region, without neurogenic claudication - ICD9: 724.02, ICD10: M48.061 15. Chronic midline low back pain with left-sided sciatica - ICD9: 724.2, 724.3, 338.29, ICD10: M54.42, G89.29 16. Radiculopathy, lumbar region - ICD9: 724.4, ICD10: M54.16 Follow up with pain management and neurosurgeon. Narcotics are not an option due to hx of addiction. Did get some relief from epidural injections but denied by Estefanygee. Encouraged f/u with pain management Jaimee Palomares PA-C Some of this note may have been copied and pasted for the purpose of history context and comparison. documented in this encounter [facility] 08-12-2022 Miscellaneous Notes Patient phones requesting refills as follows: Requested Prescriptions Pending Prescriptions Disp Refills omeprazole (PRILOSEC) 20 mg capsule [Pharmacy Med Name: Omeprazole 20MG CPDR] 30 capsule 5 Sig: TAKE 1 CAPSULE BY MOUTH DAILY Please review and advise. Alison Demarco Ma documented in this encounter [facility] 08-05-2022 Miscellaneous Notes CORY: 07/29/22 NOV 08/16/22 Patient has been identified by name and date of : Yes Requested Prescriptions Pending Prescriptions Disp Refills albuterol HFA (VENTOLIN HFA) 90 mcg/actuation inhaler Sig: Inhale 2 Puffs as instructed every 4 hours as needed for wheezing/shortness of breath. RX INSTRUCTIONS: Pharmacy initiated this request. No need to notify patient. Stephany Bowser Pss documented in this encounter [facility] 07-29-2022 Note HNO ID: [id number] Author: Memo Huber MD Service: ? Author Type: Physician Type: Progress Notes Filed: 07/29/2022 5:43 PM Note Text: Patient presents with: Breast Problem: Burning pain in bilateral breast, pain starts on sides shooting pain to nipple HPI: Patient presents today for office visit for acute visit. She thinks she feels a lump at least on the left breast. No pain in the chest No shortness of breath No cough. No rash. Hurts frequently. Shoots from lateral edges of both breasts towards the nipple. Has lost weight without trying over the last two months. Has dropped 14 lbs since Apr. Appetite is good. No skin lesions. No bowel changes. Did get constipated once and had some bleeding. Has been fine since. No urinary issues other than her urine is strong. No client support professional issues. Mild occasional headaches. No neuro issues. Had ct of chest done in 06/10 Had mri of the brain in the fall. Ct of head and spine recently after a fall. Had client support professional exam in 06/10 and has had a hysterectomy Mammogram was in September. Had colonoscopy in 12/09 Had labs in Apr due to memory loss. Finished her hep c treatments No etoh. MEDICATIONS: Current Outpatient Medications Medication Sig predniSONE (DELTASONE) 50 mg Take 1 tablet by mouth once daily for 7 days. baclofen (LIORESAL) 10 mg tablet Take 1 tablet by mouth twice daily as needed. atorvastatin (LIPITOR) 40 mg tablet Take 1 tablet by mouth daily at bedtime. pregabalin (LYRICA) 150 mg capsule Take one pill three times per day Do not start before July 26, 2022. mirabegron (MYRBETRIQ) 25 mg Tb24 Take 1 tablet by mouth once daily. thiamine (VITAMIN B1) 100 mg tablet Take 1 tablet by mouth once daily. tiotropium bromide (SPIRIVA RESPIMAT) 2.5 mcg/actuation inhaler Inhale 2 Puffs as instructed once daily. ferrous sulfate 325 mg (65 mg iron) tablet Take 1 tablet by mouth twice daily. budesonide-formoterol (SYMBICORT) 160-4.5 mcg/actuation inhaler Inhale 2 Puffs as instructed twice daily. ibuprofen (MOTRIN) 800 mg tablet Take 1 tablet by mouth every 8 hours as needed for pain. Take with food. L. acidophilus-L. rhamnosus (FLORAJEN WOMEN) 15 billion cell cap Take 1 capsule by mouth once daily. QUEtiapine (SEROQUEL) 300 mg tablet Take 300 mg by mouth once daily. cyanocobalamin (VITAMIN B-12) 1,000 mcg tab Take 1 tablet by mouth once daily. lisinopril (ZESTRIL, PRINIVIL) 20 mg tablet Take 1 tablet by mouth once daily. omeprazole (PRILOSEC) 20 mg capsule Take 1 capsule by mouth once daily. sofosbuvir-velpatasvir 400-100 mg Take one tablet by mouth, with or without food, once daily same time of day Cholecalciferol, Vitamin D3, (VITAMIN D) 25 mcg (1,000 unit) cap Take 1 capsule by mouth once daily. VITAMIN C 500 mg tablet oxybutynin ER (DITROPAN XL) 10 mg 24 hr tablet Take 1 tablet by mouth once daily. albuterol (PROVENTIL) 2.5 mg /3 mL (0.083 %) nebulizer solution Use 3 mL via nebulizer every 4 hours as needed for wheezing/shortness of breath. Use over 5-15minutes. albuterol HFA (VENTOLIN HFA) 90 mcg/actuation inhaler Inhale 2 Puffs as instructed every 4 hours as needed for wheezing/shortness of breath. buPROPion SR (ZYBAN SR; WELLBUTRIN SR) 150 mg 12 hr tablet Nebulizers Use as directed. levothyroxine (SYNTHROID) 25 mcg tablet Take 25 mcg by mouth daily before breakfast. FLUoxetine (PROZAC) 20 mg capsule Take 20 mg by mouth once daily. COMPOUNDED PRESCRIPTION Standard size Rollator Walker #1 Dx Large Blood Pressure Cuff #1 M51.36 DDD (degenerative disc disease), lumbar (primary encounter diagnosis) I10 Essential hypertension benztropine (COGENTIN) 0.5 mg tablet Take 0.5 mg by mouth daily at bedtime. COMPOUNDED PRESCRIPTION ADJUSTABLE CANE DX M51.36 No current facility-administered medications for this visit. ALLERGIES: ALLERGIES Allergen Reactions Fentanyl Other: See Comments PATCH ONLY. Respiratory distress due to rapid absorption. Sherinx [Vareniclin* Intolerance hallucinations PAST MEDICAL HISTORY Diagnosis Date Alcohol abuse Anemia Back pain Blood dyscrasia Cervical spondylosis without myelopathy Cholecystitis 04/2020 DDD (degenerative disc disease), lumbar Depression with anxiety Drug use 08/15/2018 ecstacy Emphysema of lung (HCC) Encounter for support and coordination of transition of care 05/15/2020 HOSPITAL/ER FOLLOW UP Which facility: [facility] Dates of visit: 05/10-05/13/2020 Preadmission evaluation: ER with right-sided abdominal pain over 2-1/2 hours, 10 out of 10. Worse with coughing. States she vomited 20 times the day before, with episodes of diarrhea over the past 2 days. Had used Imodium which improved diarrhea. No known exposures to Covid. Also identified chest pain which started a Encounter for support and coordination of transition of care 05/02/2021 Hospital discharge summary: Date of admission 05/01/2021 Date of discharge: Facility: [facility] (more content not included)... [facility] 07-29-2022 Note HNO ID: [id number] Author: Shruthi Keita MA Service: ? Author Type: Violin Teacher Type: Progress Notes Filed: 07/29/2022 1:46 PM Note Text: Review of Systems Constitutional: Negative for activity change, chills, fever and unexpected weight change. Gastrointestinal: Negative for bowel retention or incontinence Genitourinary: Negative for difficulty urinating. Negative for bladder retention or incontinence Musculoskeletal: Positive for arthralgias, back pain, gait problem, joint swelling, myalgias, neck pain and neck stiffness. Neurological: Positive for weakness, numbness and headaches. Psychiatric/Behavioral: Positive for dysphoric mood and sleep disturbance. Negative for suicidal ideas. The patient is nervous/anxious. [facility] 07-29-2022 Note HNO ID: [id number] Author: Deloris Troy MD Service: ? Author Type: Physician Type: Progress Notes Filed: 07/29/2022 1:46 PM Note Text: [facility] Today's Date: 07/29/2022 Last Visit: 06/03/2022 Name: Mariluz Garcia : 1970 Chief complaint: neck and low back pain History of Present Illness: Since last encounter, Mariluz Garcia; reports that the chronic problem(s) detailed above are Worse. Recent procedures: Date: Procedure Improvement 04/21/2022 RFA Right C4-5,5-6,6-7 75% (07/29/2022 ) 04/07/2022 RFA Left C4-5,5-6,6-7 75% (07/29/2022 ) Last visit, Epidural was recommended for left lower limb pain, this reportedly was denied by insurance. Recently, she has fallen several times. She has been seeing a spine surgeon (Dr. Wright), is in PT to complete and get an MRI. This is in process. Pain Description: Timing: constant Character: Shooting Primary Location: Low Back Radiation: LEFT whole leg to her foot, especially the posterior and medial loewr limb Exacerbating factors: unable to pinpoint exacerbating factors/positions Relieving factors: unable to pinpoint positions/factors that are mitigating Interferes with: physical activity, walking, and social activities The patient reports 2-3 hours of uninterrupted sleep per night The patient denies difficulty with bowel or bladder control. Current Pain Medications: Opioids: Oxycodone prn (PCP manages) NSAIDS: Ibuprofen 800 mg PRN (not consistent) Anti-depressants: Seroquel, wellbutrin, prozac Anti-convulsants: Lyrica 150 mg TID (PCP manages) Muscle relaxants: Baclofen 10mg TID PRN Others: Analgesia: partially adequate New Problems reported: See above Recall: Hx of previous lumbar surgery, decompression of L4/5. [facility] Current Status: INTAKE PAIN ASSESSMENT 06/03/2022 07/29/2022 Are you having pain associated with your visit today? Yes, Provider notified Yes, Provider notified Pain Scales Verbal (Numeric Rating or Visual Analog Scale) Verbal (Numeric Rating or Visual Analog Scale) Pain Level 10 9 Pain Location Back-Lower Back-Lower Description Sharp;Shooting;Radiating;Stabbing ;Tightness;Stiffness Stabbing;Sharp;Radiating;Shooting ;Sore;Aching Duration Amount of Time - - Duration Units Years Months Frequency Continuous Continuous Intervention/Comfort measure Reposition;Relaxation;Positioning Reposition;Relaxation;Positioning Comments - - Pain Assessment - - Current Anti-Coagulant Use: No Risk Assessment: BETO-7: BETO - 7 SCORES 11/12/2021 02/18/2022 BETO-7 Score 7 10 (0-4) minimal anxiety, (5-9) mild anxiety, (10-14) moderate anxiety, (15-21) severe anxiety PHQ-9: PHQ-9 02/13/2019 11/12/2021 02/18/2022 Score 17 4 17 (0-4) minimal depression, (5-9) mild depression, (10-14) moderate depression, (15-19) moderately severe depression, (20-27) severe depression Compliance: PDMP website checked and validated. Fills various opioids from several providers 07/29/2022 by Deloris Troy MD Percocet , #20 (04/09/2022) Allergies: ALLERGIES Allergen Reactions Fentanyl Other: See Comments PATCH ONLY. Respiratory distress due to rapid absorption. Chantix [Vareniclin* Intolerance hallucinations Data Reviewed: Reviewed personally on today's date Relevant Imaging: MRI Spine Report MRI LUMBAR SPINE WO IVCON Exam End: 06/05/2021 10:57 AM (Final result) Narrative: * * *Final Report* * * DATE OF EXAM: Jun 05 2021 10:50AM [facility] 0303 - MRI LUMBAR SPINE WO IVCON / PROCEDURE REASON: multiple diagnoses * * * * Physician Interpretation * * * * EXAMINATION: MRI LUMBAR SPINE WO IVCON CLINICAL HISTORY: Lumbar spondylosis Spinal stenosis of lumbar region without neurogenic claudication. Additional narrative history of prior spine surgery in 2012. Back pain radiates into both hips and left leg. This information is taken directly from the service order dispatcher system. TECHNIQUE: Routine lumbosacral spine MR protocol without gadolinium. MQ: [id number] COMPARISON: Prior lumbar plain films 01/16/2021. Previous outside MRI of the lumbosacral spine 04/24/2014. RESULT: Counting reference: Lumbosacral junction. For the purposes of this report, L4-5 is considered the level of the iliac crest and assume there are 5 lumbar-type vertebrae. Anatomic variant: None. Localizer images: Moderate obesity. No paraspinal masses are evident. Tiny bilateral renal cysts. Alignment: Mild scoliotic curvature convex left visible on the picture enlarger. [place] at L4-L5. Mild straightening of usual lumbar lordosis and slightly kyphotic alignment at the level of L1 related to minimal old anterior wedging morphology of L1. Bone marrow signal/fracture: Advanced endplate degenerative change at L1-L2 through the L4-L5 level. Type I endplate changes, which may contribute to mechanical back pain. Multilevel endplate irregularities which have (more content not included)... [facility] 07-21-2022 Miscellaneous Notes Fax written and sent to Lynda. Please advise Lynda akins d/c O2. Thanks, Faustino Palomares PA-C documented in this encounter [facility] 07-16-2022 Miscellaneous Notes Last Office Visit: 05/14/2022 Future Office Visit: 08/16/2022 Requested Prescriptions Pending Prescriptions Disp Refills atorvastatin (LIPITOR) 40 mg tablet 90 tablet 1 Sig: Take 1 tablet by mouth daily at bedtime. pregabalin (LYRICA) 150 mg capsule 90 capsule 5 Sig: Take one pill three times per day mirabegron (MYRBETRIQ) 25 mg Tb24 30 tablet 5 Sig: Take 1 tablet by mouth once daily. thiamine (VITAMIN B1) 100 mg tablet 30 tablet 5 Sig: Take 1 tablet by mouth once daily. tiotropium bromide (SPIRIVA RESPIMAT) 2.5 mcg/actuation inhaler 1 Each 5 Sig: Inhale 2 Puffs as instructed once daily. ferrous sulfate 325 mg (65 mg iron) tablet 56 tablet 11 Sig: Take 1 tablet by mouth twice daily. Date of Last Labs: 05/07/2022 documented in this encounter [facility] 07-14-2022 Miscellaneous Notes Patient has been identified by name and date of : Yes Pharmacy phones for refill(s): Requested Prescriptions Pending Prescriptions Disp Refills budesonide-formoterol (SYMBICORT) 160-4.5 mcg/actuation inhaler 1 Each 5 Sig: Inhale 2 Puffs as instructed twice daily. Date of last office visit in primary care: 05/14/22 Last 2 Encounter Wt Readings: Date: Wt: 05/25/2022 67.8 kg (149 lb 6.4 oz) 05/14/2022 65.8 kg (145 lb) Thank you. Fadumo Romero RN documented in this encounter [facility] 06-24-2022 Miscellaneous Notes Patient contacted Nurse Triage and was advised by them to immediately go the ER for evaluation. Nita Gabriel LPN June 24, 2022 10:59 AM Agree, patient needs to have ER evaluation s/p fall. Thank you, Shira Kam APRN.SENIOR CONTRACTS ADMINISTRATOR Spoke with patient and informed them of Shira's note below. She wanted to let us know that she suffered a fall outside yesterday. She sent a message about the fall to her PCP but also wanted to inform us. She states she can not stand up with out falling due to pain in her hip. She described it as being very wobbly . Advised patient should seek immediate medical attention if unable to walk. Please review and advise. Nita Gabriel LPN June 24, 2022 10:01 AM Addended by: SHIRA KAM on: 06/24/2022 08:57 AM Modules accepted: Orders New Rx was sent to her pharmacy. Please update patient. Thank you, Shira Kam APRN.SENIOR CONTRACTS ADMINISTRATOR Patient pharmacy called [facility] directions does not match quantity patient will only have a 15 day supply with directions on the script, please advise. documented in this encounter [facility] 06-24-2022 Miscellaneous Notes Patient call in for left hip injury. Patient had fallen yesterday afternoon and hurt left hip. Patient reports that she can put weight on hip but then states that leg will collapse. Patient crying out in pain. Nurse Triage assessment completed with protocol recommending for disposition of Go to ED now. Care advice reviewed with patient, patient stated understanding. Patient has not ride to ED, patient advised to call for squad to take her. Patient states that she has a hard time sitting. Patient state that she will keep us posted. Reason for Disposition Sounds like a serious injury to the triager Answer Assessment - Initial Assessment Questions 1. MECHANISM: Patient was outside and fell, direct blow to left hip; slipped on handicap ramp 2. ONSET: Yesterday morning/early afternoon 3. LOCATION: Left hip 4. APPEARANCE of INJURY: Bruising to left hip 5. SEVERITY: Can put weight on it for a very short time before collapsing, leg will come out from under her 6. SIZE: Size of silver dollar with big knot 7. PAIN: Pain shooting down leg and buttocks 8. OTHER SYMPTOMS: Nerves on left leg are bad Protocols used: Hip [id number] documented in this encounter [facility] 06-18-2022 Miscellaneous Notes Correct this was completed yesterday and the order was faxed. I think this was done. Thanks, Faustino Palomares PA-C Pt called in and reports she gets her incontinence supplies through [facility]. The phone number for them is [phone] fax # [phone]. She states they told her she needs the provider to send in a prescription for her to get Adult Diaper in size L maximum absorbency. She states the provider already orders pads for her and she would still like to keep getting those as well. When I called to get the fax # they report they had just sent over an order to the providers office. documented in this encounter [facility] 06-18-2022 Miscellaneous Notes Opened in error. Fadumo Romero RN documented in this encounter [facility] 06-18-2022 Miscellaneous Notes [facility] Telephone Medication Refill Request Name/dose: Baclofen 10mg tablet Amount dispensed monthly: 60 Date last filled: 05/31/2022 Date last seen in office: 06/03/2022 Provider: Shira Kam Next scheduled visit: 07/05/2022 Pharmacy: [facility] [address] [place] [address] - [id number] - [phone] Nita Gabriel LPN June 18, 2022 11:10 AM documented in this encounter [facility] 06-16-2022 Note HNO ID: [id number] Author: James Hartmann PT Service: ? Author Type: Physical Therapist Type: Progress Notes Filed: 06/16/2022 1:03 PM Note Text: Pt arrived to [address] for Physical Therapy appointment. It was determined that the patient and the patient's referring provider were wanting a course of aquatic therapy for the patient's back pain. There is no aquatic therapy provided at this location, and so the patient was directed to [facility]. This PT printed off the patient's PT order and handed it to her. The patient then left the PT department. James Hartmann PT [facility] 06-16-2022 History of Present illness Narrative Pt arrived to [facility] [place]note [facility] for Physical Therapy appointment. It was determined that the patient and the patient's referring provider were wanting a course of aquatic therapy for the patient's back pain. There is no aquatic therapy provided at this location, and so the patient was directed to [facility]. This PT printed off the patient's PT order and handed it to her. The patient then left the PT department. James Hartmann PT documented in this encounter [facility] 06-16-2022 Miscellaneous Notes Waiting to hear from pt on where to send order too. Liliana London Ma Telephone on 06/09/22 NEBUL[facility]ER ADMINISTRATION SET Thanks, Faustino Palomares PA-C Patient reports the cup to the nebulizer is broke and will not hold medication. Asking pcp to order her a new one. Patient will call insurance company to find out what DME is covered and let pcp know where to send order to. documented in this encounter [facility] 06-03-2022 Miscellaneous Notes Sent in consult to physical therapy, confirmation number is [id number] documented in this encounter [facility] 06-03-2022 Note HNO ID: [id number] Author: Shira Kam APRN.SENIOR CONTRACTS ADMINISTRATOR Service: ? Author Type: Nurse Practitioner Type: Progress Notes Filed: 06/03/2022 11:49 AM Note Text: [facility] Today's Date: 06/03/2022 Last Visit: Name: Mariluz Garcia : 1970 Chief complaint: Low Back Pain History of Present Illness: Since last encounter, Mariluz Garcia; reports that the chronic problem(s) detailed above are Worse. Reports she has had severe low back pain since she fell in December 2021 and is not improving. Hx of previous lumbar surgery, decompression of L4/5. [facility] Pain Description: Timing: constant Character: Shooting Primary Location: Low Back Radiation: LEFT whole leg to her foot Exacerbating factors: unable to pinpoint exacerbating factors/positions Relieving factors: unable to pinpoint positions/factors that are mitigating Interferes with: physical activity, walking, and social activities The patient reports 2-3 hours of uninterrupted sleep per night The patient denies difficulty with bowel or bladder control. New Problems reported: See above Recall: Patient of Dr. Troy Current Status: INTAKE PAIN ASSESSMENT 04/27/2022 06/03/2022 Are you having pain associated with your visit today? - Yes, Provider notified Pain Scales - Verbal (Numeric Rating or Visual Analog Scale) Pain Level 7 10 Pain Location Neck Back-Lower Description Pressure Ulcer/Injury;Aching Sharp;Shooting;Radiating;Stabbing ;Tightness;Stiffness Duration Amount of Time - - Duration Units - Years Frequency - Continuous Intervention/Comfort measure - Reposition;Relaxation;Positioning Comments - - Pain Assessment - - Current Pain Medications: Opioids: Oxycodone prn (PCP manages) NSAIDS: Ibuprofen 800 mg Prn (not consistent) Anti-depressants: Seroquel, wellbutrin, prozac Anti-convulsants: Lyrica 150 mg TID (PCP manages) Muscle relaxants: Baclofen Others: Analgesia: partially adequate Current Anti-Coagulant Use: No Risk Assessment: BETO-7: BETO - 7 SCORES 11/12/2021 02/18/2022 BETO-7 Score 7 10 (0-4) minimal anxiety, (5-9) mild anxiety, (10-14) moderate anxiety, (15-21) severe anxiety PHQ-9: PHQ-9 02/13/2019 11/12/2021 02/18/2022 Score 17 4 17 (0-4) minimal depression, (5-9) mild depression, (10-14) moderate depression, (15-19) moderately severe depression, (20-27) severe depression Compliance: PDMP website checked and validated. Fills various opioids from several providers 06/03/2022 by Shira Kam APRN.SENIOR CONTRACTS ADMINISTRATOR Allergies: ALLERGIES Allergen Reactions Fentanyl Other: See Comments PATCH ONLY. Respiratory distress due to rapid absorption. Chantix [Vareniclin* Intolerance hallucinations Data Reviewed: Reviewed personally on today's date 06/03/2022 Relevant Imaging: MRI Spine Report MRI LUMBAR SPINE WO IVCON Exam End: 06/05/2021 10:57 AM (Final result) Narrative: * * *Final Report* * * DATE OF EXAM: Jun 05 2021 10:50AM [facility] 0303 - MRI LUMBAR SPINE WO IVCON / PROCEDURE REASON: multiple diagnoses * * * * Physician Interpretation * * * * EXAMINATION: MRI LUMBAR SPINE WO IVCON CLINICAL HISTORY: Lumbar spondylosis Spinal stenosis of lumbar region without neurogenic claudication. Additional narrative history of prior spine surgery in 2012. Back pain radiates into both hips and left leg. This information is taken directly from the service order dispatcher system. TECHNIQUE: Routine lumbosacral spine MR protocol without gadolinium. MQ: [id number] COMPARISON: Prior lumbar plain films 01/16/2021. Previous outside MRI of the lumbosacral spine 04/24/2014. RESULT: Counting reference: Lumbosacral junction. For the purposes of this report, L4-5 is considered the level of the iliac crest and assume there are 5 lumbar-type vertebrae. Anatomic variant: None. Localizer images: Moderate obesity. No paraspinal masses are evident. Tiny bilateral renal cysts. Alignment: Mild scoliotic curvature convex left visible on the picture enlarger. [place] at L4-L5. Mild straightening of usual lumbar lordosis and slightly kyphotic alignment at the level of L1 related to minimal old anterior wedging morphology of L1. Bone marrow signal/fracture: Advanced endplate degenerative change at L1-L2 through the L4-L5 level. Type I endplate changes, which may contribute to mechanical back pain. Multilevel endplate irregularities which have the morphology of Schmorl's nodes. No gross vertebral body collapse or bony retropulsion otherwise. Conus: The distal cord terminates normally at the extreme upper margin of L2. No impingement of the distal cord within the [id number]. Paraspinal soft tissues: As above. No paraspinal masses are evident. Lower thoracic spine: Canal and foramina are normally patent at T11-T12. Facet degenerative changes are present at this level, but no significant impact on canal or foraminal patenc (more content not included)... [facility] 06-03-2022 Note HNO ID: [id number] Author: Shruthi Keita MA Service: ? Author Type: Violin Teacher Type: Progress Notes Filed: 06/03/2022 11:49 AM Note Text: Review of Systems Constitutional: Negative for activity change, chills, fever and unexpected weight change. Gastrointestinal: Negative for bowel retention or incontinence Genitourinary: Negative for difficulty urinating. Negative for bladder retention or incontinence Musculoskeletal: Positive for arthralgias, back pain, gait problem, myalgias, neck pain and neck stiffness. Negative for joint swelling. Neurological: Positive for weakness, numbness and headaches. Psychiatric/Behavioral: Positive for dysphoric mood and sleep disturbance. Negative for suicidal ideas. The patient is nervous/anxious. [facility] 06-03-2022 Miscellaneous Notes 1.Are you diabetic No 2. Are you on any blood thinners? No 3. Are you taking any aspirin? No 4. Have you had any recent imaging done on your body part that's being injected? No 5. Do you have any allergies to latex? No 6. Do you have any allergies to seafood? No 7. Do you have any allergies to shellfish? No 8. Do you have any allergies to x-ray dye? No 9. Are you taking Xanax for the procedure? No 10. Have you done physical therapy in the last year? Yes If yes, When and Where? Starting aquatic (Medical Records Release needs to be signed.) 11. Were the pre-procedure instructions explained to the patient? No, will be explained during scheduling 12. Do you have a pacemaker? No 13. Do you have an internal stimulator of any kind? No If yes, please bring the remote with you to your procedure visit. 14. Have you received the COVID-19 Vaccine? No. If yes, date(s) received: Will explained during scheduling (Patient should not receive a procedure including steroids 14 days prior to their first dose of the COVID vaccine. They should not receive any procedure containing steroids in the time frame between their 1st and 2nd doses of the COVID vaccine. They should not receive a procedure containing steroids 14 days after their 2nd dose of the COVID vaccine.) Noy Mcintosh documented in this encounter [facility] 06-03-2022 Instructions Shira Kam APRN.CNP - 06/03/2022 11:32 AM EST Activity as tolerated Use Ice and/or heat as tolerated as needed documented in this encounter [facility] 06-03-2022 History of Present illness Narrative Images from the original note were not included. [facility] Today's Date: 06/03/2022 Last Visit: Name: Mariluz Garcia : 1970 Chief complaint: Low Back Pain History of Present Illness: Since last encounter, Mariluz Christine Jose; reports that the chronic problem(s) detailed above are Worse. Reports she has had severe low back pain since she fell in December 2021 and is not improving. Hx of previous lumbar surgery, decompression of L4/5. [facility] Pain Description: Timing: constant Character: Shooting Primary Location: Low Back Radiation: LEFT whole leg to her foot Exacerbating factors: unable to pinpoint exacerbating factors/positions Relieving factors: unable to pinpoint positions/factors that are mitigating Interferes with: physical activity, walking, and social activities The patient reports 2-3 hours of uninterrupted sleep per night The patient denies difficulty with bowel or bladder control. New Problems reported: See above Recall: Patient of Dr. Troy Current Status: INTAKE PAIN ASSESSMENT 04/27/2022 06/03/2022 Are you having pain associated with your visit today? - Yes, Provider notified Pain Scales - Verbal (Numeric Rating or Visual Analog Scale) Pain Level 7 10 Pain Location Neck Back-Lower Description Pressure Ulcer/Injury;Aching Sharp;Shooting;Radiating;Stabbing ;Tightness;Stiffness Duration Amount of Time - - Duration Units - Years Frequency - Continuous Intervention/Comfort measure - Reposition;Relaxation;Positioning Comments - - Pain Assessment - - Current Pain Medications: Opioids: Oxycodone prn (PCP manages) NSAIDS: Ibuprofen 800 mg Prn (not consistent) Anti-depressants: Seroquel, wellbutrin, prozac Anti-convulsants: Lyrica 150 mg TID (PCP manages) Muscle relaxants: Baclofen Others: Analgesia: partially adequate Current Anti-Coagulant Use: No Risk Assessment: BETO-7: BETO - 7 SCORES 11/12/2021 02/18/2022 BETO-7 Score 7 10 (0-4) minimal anxiety, (5-9) mild anxiety, (10-14) moderate anxiety, (15-21) severe anxiety PHQ-9: PHQ-9 02/13/2019 11/12/2021 02/18/2022 Score 17 4 17 (0-4) minimal depression, (5-9) mild depression, (10-14) moderate depression, (15-19) moderately severe depression, (20-27) severe depression Compliance: PDMP website checked and validated. Fills various opioids from several providers 06/03/2022 by Shira Kam APRN.SENIOR CONTRACTS ADMINISTRATOR Allergies: ALLERGIES Allergen Reactions Fentanyl Other: See Comments PATCH ONLY. Respiratory distress due to rapid absorption. Chantix [Vareniclin* Intolerance hallucinations Data Reviewed: Reviewed personally on today's date 06/03/2022 Relevant Imaging: MRI Spine Report MRI LUMBAR SPINE WO IVCON Exam End: 06/05/2021 10:57 AM (Final result) Narrative: * * *Final Report* * * DATE OF EXAM: Jun 05 2021 10:50AM [facility] 0303 - MRI LUMBAR SPINE WO IVCON / PROCEDURE REASON: multiple diagnoses * * * * Physician Interpretation * * * * EXAMINATION: MRI LUMBAR SPINE WO IVCON CLINICAL HISTORY: Lumbar spondylosis Spinal stenosis of lumbar region without neurogenic claudication. Additional narrative history of prior spine surgery in 2013. Back pain radiates into both hips and left leg. This information is taken directly from the service order dispatcher system. TECHNIQUE: Routine lumbosacral spine MR protocol without gadolinium. MQ: [id number] COMPARISON: Prior lumbar plain films 01/16/2021. Previous outside MRI of the lumbosacral spine 04/24/2014. RESULT: Counting reference: Lumbosacral junction. For the purposes of this report, L4-5 is considered the level of the iliac crest and assume there are 5 lumbar-type vertebrae. Anatomic variant: None. Localizer images: Moderate obesity. No paraspinal masses are evident. Tiny bilateral renal cysts. Alignment: Mild scoliotic curvature convex left visible on the picture enlarger. [place] at L4-L5. Mild straightening of usual lumbar lordosis and slightly kyphotic alignment at the level of L1 related to minimal old anterior wedging morphology of L1. Bone marrow signal/fracture: Advanced endplate degenerative change at L1-L2 through the L4-L5 level. Type I endplate changes, which may contribute to mechanical back pain. Multilevel endplate irregularities which have the morphology of Schmorl's nodes. No gross vertebral body collapse or bony retropulsion otherwise. Conus: The distal cord terminates normally at the extreme upper margin of L2. No impingement of the distal cord within the [id number]. Paraspinal soft tissues: As above. No paraspinal masses are evident. Lower thoracic spine: Canal and foramina are normally patent at T11-T12. Facet degenerative changes are present at this level, but no significant impact on canal or foraminal patency. T12-L1: Canal and foramina are patent. L1-L2: Disk bulging, loss of disk height, and loss of normal T2 hyperintensity in the disk. Facet degenerative change. Central canal is patent. Neural foramina are patent. L2-L3: Disk bulging, loss of disk height, and partial loss of normal T2 hyperintensity in the disk. Facet degenerative change. Flattening of ventral thecal sac, spinal canal and lateral recesses are otherwise grossly open. Neural foramina are patent. L3-L4: Disk bulging, loss of disk height, and loss of normal T2 hyperintensity in the disk.. Facet degenerative change. Prior right hemilaminectomy. There is right lateral recess narrowing, likely impinging on the descending right L4 nerve root. Left lateral recess is open. Spinal canal is otherwise patent. Loss of disc height, lateral margin of the annulus, and facet degenerative change contributes to [id number] right foraminal narrowing. L4-L5: Disk bulging, loss of disk height, and loss of normal T2 hyperintensity in the disk. Facet degenerative change. Bilateral lateral recess narrowing impinging the descending L5 nerve roots. Loss of disc height, lateral margins of the annulus, and facet degenerative change contribute to moderate-severe right foraminal narrowing. Left neural foramen is patent. L5-S1: Mild disc bulging and facet degenerative change. Central thecal sac is patent. No compression of either descending S1 nerve root sleeve. Loss of disc height, lateral margin of the annulus, and facet degenerative change contributes to severe left foraminal narrowing. Right neural foramen is patent. Sacrum and iliac wings: No acute fracture. Impression: IMPRESSION: Scoliosis and spondylosis as discussed. There is no high-grade spinal stenosis. Moderate to severe right foraminal narrowing at L4-L5 affecting the exiting right L4 nerve root, severe left foraminal narrowing at L5-S1 affecting the exiting left L5 nerve root. Lateral recess narrowing on the right at L3-L4 likely impinges on the descending right L4 nerve root. Bilateral lateral recess narrowing at L4-L5 likely impinges on the descending L5 nerve roots. Would expect lower extremity radiculopathy as a consequence. No impingement of the distal cord. Degenerative changes have progressed since the prior MRI in 2014. Anatomic Thoracic/Lumbar Variant: None. L4-5 is considered the level of the iliac crest and assume there are 5 lumbar-type vertebrae. Jack Frame Tender: CJ Transcribe Date/Time: Jun 05 2021 11:26A Dictated by : GITA MALHOTRA MD This examination was interpreted and the report reviewed and electronically signed by: GITA MALHOTRA MD on Jun 05 2021 11:36AM EST Pain Procedures: DATE PROCEDURE IMPROVEMENT 04/10 & 05/11 RFA Cervical 80% 02/24/22 BL TFESI L5/S1 No relief 08/27/21 BL TFESI L5/S1 Current Medications, Past Medical History, Past Surgical History, Family History, Social History and Review of Systems: On today's date, 06/03/2022, noted above, I have confirmed and edited as necessary, the PFSH and ROS obtained by others. Physical Exam: 06/03/22 1110 Pulse: 80 Resp: 16 SpO2: 95% Constitutional: normal weight HEENT: Normal Cephalic, Atraumatic, Non-icteric sclera Eyes: Conjunctiva clear. No discharge from eyes Cardiovascular: Appears well perfused Lymphatic: No visible regional lymphadenopathy Skin: No visible rashes or ecchymosis Psychiatric: Full affect, Alert, Pleasant LUMBAR MUSCULOSKELETAL/NEURO EXAM Inspection: - Symmetric without atrophy Posture: Kyphotic Gait: Antalgic, ambulates with walker Palpation: - Lumbar Paraspinal Tenderness: Concordant in the Bilateral lumbar paraspinals - Paraspinal Spasms: None - Greater Trochanter: None tenderness Bilateral Strength: LEFT RIGHT Iliopsoas (L2) 5 5 Quadriceps (L3) 5 5 Anterior Tibialis (L4): 5 5 Exten Hallucis Longus (L5) 5 5 Gastrocnemius (S1): 5 5 Muscle Tone: - Normal and symmetric Neural Tension Signs: -Straight Leg Exam Negative Bilateral lower limb(s) -Contralateral Straight Leg Raise Negative Bilateral lower limb(s) Sensation: - intact to light touch in the L2-S2 Bilateral lower limb dermatomes Stefan's Signs: Superficial non-anatomic tenderness: Yes Overreaction: Yes Give-way weakness: Yes Diagnoses: (M54.40, G89.29) Chronic left-sided low back pain with sciatica, sciatica laterality unspecified (primary encounter diagnosis) (M48.061) Spinal stenosis of lumbar region without neurogenic claudication (M47.816) Lumbar spondylosis (M79.7) Fibromyalgia (G89.29) Other chronic pain Impression & Plan: 52 year old female, who presents with complaint(s) of chronic low back pain with LEFT sided radicular symptoms. Reports she has not had much relief with BL TFESI of L5/S1 in the past. She has not have any recent therapy since the onset of her increased pain since December. States her spine surgeon ordered an updated lumbar MRI, which her insurance denied. She is already on Lyrica and has frequent misc opioids RX from outside providers. She occasionally take ibuprofen Her most recent lumbar MRI demonstrates BL lateral recess narrowing of the L5NR at the L4/5 level and severe FS LEFT L5/S1. We will try a different approach to treat her LEFT sided radicular symptoms. Recommend trial TRFESI LEFT L4/5, L5/S1 Mariluz Garcia would benefit from the following to decrease pain, improve function and/or work participation, and improve quality of life: Interventional Procedure(s): LEFT TFESI L4/5, L5/S1 with Fluoro The risks, benefits, alternative treatment options and prognosis of the procedure were discussed and all of the patient's questions/concerns were addressed to the patient's satisfaction. The patient expressed understanding and gave verbal consent to proceed. Medications: Refill: Requested Prescriptions No prescriptions requested or ordered in this encounter Continue Lyrica as directed (Managed by PCP) I did offer her a course of medrol and an alternative NSAID, she declined Functional Jewish: Physical Therapy (Aquatic) Additional Studies: Referrals: Additional: If not relief with the above and in combination of water therapy recommend updated EMG/NCT LLE and updated Lumbar MRI as ordered by her Spine Surgeon Patient is happy and agreeable with this plan. All questions were answered and patient verbalized understanding. Depending on response to the above plan, consider: Follow-up: next available appointment, for injection and follow up after injection and PT for evaluation of response to treatment plan and optimization Attribution: In addition to reviewing the information noted above, some elements copied from my most recent clinical note(s), including the physical exam (completed in entirety today), and the impression and plan sections, have been updated where appropriate. All reflect current medical decision making from today's date. Shira Kam APRN.SENIOR CONTRACTS ADMINISTRATOR [facility] Review of Systems Constitutional: Negative for activity change, chills, fever and unexpected weight change. Gastrointestinal: Negative for bowel retention or incontinence Genitourinary: Negative for difficulty urinating. Negative for bladder retention or incontinence Musculoskeletal: Positive for arthralgias, back pain, gait problem, myalgias, neck pain and neck stiffness. Negative for joint swelling. Neurological: Positive for weakness, numbness and headaches. Psychiatric/Behavioral: Positive for dysphoric mood and sleep disturbance. Negative for suicidal ideas. The patient is nervous/anxious. documented in this encounter [facility] 05-31-2022 Miscellaneous Notes Spoke with pt and information listed below given. Pt verbalizes understanding. Sruthi Piña LPN Left message for patient to return call. Bharti Coello Ma ----- Message from Jaimee Palomares PA-C sent at 05/29/2022 10:02 AM EST ----- Please advise CT chest shows no mass. Has atelectasis (lung tissue stuck together) which can come from mucus or damage to tissue from smoking. Thanks, Faustino Palomares PA-C documented in this encounter [facility] 05-26-2022 Miscellaneous Notes Patient requesting to have probiotic sent to pharmacy. Patient was told that insurance my not cover. ----- Message from Jenifer Yeager APRN.CNM sent at 05/26/2022 12:46 PM EST ----- Please notify patient she is positive for BV. Will treat with metronidazole gel at HS for 5 nights. If symptoms return in 4 weeks to come back for retesting. Probiotic by mouth once daily for 30 days. 1) No alcohol during treatment and for 24 hours after last dose. 2) No intercourse during treatment. 3) Probiotic by mouth once daily for 30 days or as needed. Jenifer Yeager APRN.CNM documented in this encounter [facility] 05-25-2022 History of Present illness Narrative Mariluz Garcia is a 52 year old female who presents for problem visit for vaginal discharge. HPI: Presents today with complaint of increased vaginal discharge and odor. States never went away after visit on 01/18/22 and diagnosed with Flagyl. New partner in last 6 months and was ok for STD testing. OB History T0 L0 SAB0 IAB0 Ectopic0 Multiple0 Live Births0 Events Assistant History LMP: Hysterectomy Age at Menarche: Age at First : Age at Menopause: Events Assistant History Comments: Sexual Activity: Not Currently; No partner data on record Contraception: No contraception data on record PAST MEDICAL HISTORY Diagnosis Date Alcohol abuse Anemia Back pain Blood dyscrasia Cervical spondylosis without myelopathy Cholecystitis 04/2020 DDD (degenerative disc disease), lumbar Depression with anxiety Drug use 08/15/2018 ecstacy Emphysema of lung (HCC) Encounter for support and coordination of transition of care 05/15/2020 HOSPITAL/ER FOLLOW UP Which facility: [facility] Dates of visit: 05/10-05/13/2020 Preadmission evaluation: ER with right-sided abdominal pain over 2-1/2 hours, 10 out of 10. Worse with coughing. States she vomited 20 times the day before, with episodes of diarrhea over the past 2 days. Had used Imodium which improved diarrhea. No known exposures to Covid. Also identified chest pain which started a Encounter for support and coordination of transition of care 05/02/2021 Hospital discharge summary: Date of admission 05/01/2021 Date of discharge: Facility: [facility] 05/01/2021 presented to the emergency room with acute alcohol intoxication, initial alcohol level 7-8. Acknowledges over the last 5 months drinking 15 packs a day at 8% alcohol (natty dadalfa). Vital signs 96.6 [id number]/73-98%. Appearance was no acute distress. WBC 7.9-Hgb 13.8-HCT 39 GERD (gastroesophageal reflux disease) Hyperglycemia Hypertension Lung abscess (HCC) saw Néstor Li and Dr. Zarate. Major depression Mild protein-calorie malnutrition (HCC) 08/26/2020 Obesity PE (pulmonary thromboembolism) (HCC) PTSD (post-traumatic stress disorder) Snoring Tobacco use disorder PAST SURGICAL HISTORY Procedure Laterality Date CARPAL TUNNEL Left 09/2015 COLONOSCOPY 11/27/2021 COLONOSCOPY FLX DX W/COLLJ SPEC WHEN PFRMD several years ago Colonoscopy COLONOSCOPY FLX DX W/COLLJ SPEC WHEN PFRMD 10/02/2014 Colonoscopy ESOPHAGOGASTRODUODENOSCOPY TRANSORAL DIAGNOSTIC 10/02/2014 EGD HEART CATHETERIZATION 10/30/2013 normal coronary arteries HYSTERECTOMY HX 2005 menorrhagia. JONAS/right oophorectomy. bowel adhesion HYSTERECTOMY HX 1989' LAPAROSCOPY SURG CHOLECYSTECTOMY 05/12/2020 NEUROPLASTY &/TRANSPOS MEDIAN NRV CARPAL TUNNE Right 11/21/2015 Carpal tunnel decomp OVARIAN CYSTECTOMY UNI/BI 1996 left oophorectomy and 20# cyst PAST SURGICAL HISTORY OF 07/2012 Lumbar discectomy L3-L4 PAST SURGICAL HISTORY OF 09/2012 repeat lumbar surgery SKIN GRAFT,SCALP,ARMS,LEGS 12/2013 bilateral posterior thigh autograft, fell in firepit TONSILLECTOMY & ADENOIDECTOMY <AGE 10 1977 FAMILY HISTORY Problem Relation Age of Onset Hypertension Mother Cancer Mother lung, metastatic Heart Father Heart Maternal Grandmother Stroke Maternal Grandmother Colon Cancer No Family History Social History Tobacco Use Smoking status: Every Day Packs/day: 0.75 Years: 32.00 Pack years: 24.00 Types: Cigarettes Smokeless tobacco: Never Tobacco comments: started smoking 12yr .5 to .75 of pack daily-in process of quitting as of 09/29/15 Substance Use Topics Alcohol use: Not Currently Drug use: Yes Types: Marijuana Current Outpatient Medications Medication Sig tiotropium bromide (SPIRIVA RESPIMAT) 2.5 mcg/actuation inhaler Inhale 2 Puffs as instructed once daily. cyanocobalamin (VITAMIN B-12) 1,000 mcg tab Take 1 tablet by mouth once daily. ibuprofen (MOTRIN) 800 mg tablet Take 1 tablet by mouth every 8 hours as needed for pain. Take with food. baclofen (LIORESAL) 10 mg tablet TAKE 1 TABLET BY MOUTH TWICE A DAY (Patient taking differently: Take 5 mg by mouth twice daily.) omeprazole (PRILOSEC) 20 mg capsule Take 1 capsule by mouth once daily. sofosbuvir-velpatasvir 400-100 mg Take one tablet by mouth, with or without food, once daily same time of day Cholecalciferol, Vitamin D3, (VITAMIN D) 25 mcg (1,000 unit) cap Take 1 capsule by mouth once daily. thiamine (VITAMIN B1) 100 mg tablet Take 1 tablet by mouth once daily. mirabegron (MYRBETRIQ) 25 mg Tb24 Take 1 tablet by mouth once daily. atorvastatin (LIPITOR) 40 mg tablet Take 1 tablet by mouth daily at bedtime. pregabalin (LYRICA) 150 mg capsule Take one pill three times per day VITAMIN C 500 mg tablet oxybutynin ER (DITROPAN XL) 10 mg 24 hr tablet Take 1 tablet by mouth once daily. albuterol (PROVENTIL) 2.5 mg /3 mL (0.083 %) nebulizer solution Use 3 mL via nebulizer every 4 hours as needed for wheezing/shortness of breath. Use over 5-15minutes. ferrous sulfate 325 mg (65 mg iron) tablet Take 1 tablet by mouth twice daily. albuterol HFA (VENTOLIN HFA) 90 mcg/actuation inhaler Inhale 2 Puffs as instructed every 4 hours as needed for wheezing/shortness of breath. buPROPion SR (ZYBAN SR; WELLBUTRIN SR) 150 mg 12 hr tablet Nebulizers Use as directed. levothyroxine (SYNTHROID) 25 mcg tablet Take 25 mcg by mouth daily before breakfast. FLUoxetine (PROZAC) 20 mg capsule Take 20 mg by mouth once daily. COMPOUNDED PRESCRIPTION Standard size Rollator Walker #1 Dx Large Blood Pressure Cuff #1 M51.36 DDD (degenerative disc disease), lumbar (primary encounter diagnosis) I10 Essential hypertension benztropine (COGENTIN) 0.5 mg tablet Take 0.5 mg by mouth daily at bedtime. COMPOUNDED PRESCRIPTION ADJUSTABLE CANE DX M51.36 QUEtiapine (SEROQUEL) 50 mg tablet Take 50 mg by mouth once daily. lisinopril (ZESTRIL, PRINIVIL) 20 mg tablet Take 1 tablet by mouth once daily. (Patient not taking: Reported on 05/07/2022) budesonide-formoterol (SYMBICORT) 160-4.5 mcg/actuation inhaler Inhale 2 Puffs as instructed twice daily. No current facility-administered medications for this visit. Allergies As of Date: 05/25/2022 Allergen Noted Reaction FENTANYL 08/22/2015 Other: See Comments CHANTIX [VARENICLINE] 09/30/2016 Intolerance Fully Assessed 05/25/2022 REVIEW OF SYSTEMS Abdomen: No bloating, early satiety, indigestion, or increased flatulence. No abdominal pain, nausea, vomiting, diarrhea, or constipation. Bladder: No dysuria, gross hematuria, urinary frequency, urinary urgency, or incontinence. Breast: No breast lumps, nipple d/c, overlying skin changes, redness or skin retraction. Expanded ROS: N/A Allergies and current medication updated:Yes EXAM: BP 112/64 Wt 149 lb 6.4 oz (67.8kg) GENERAL: pleasant, female in no apparent distress HEENT: Normocephalic and atraumatic NECK: Supple and full range of motion PELVIC: external genitalia normal, normal Bartholin's glands, urethra, [place]'s glands, no vulvar lesions, no cervical lesions, good vaginal support, physiologic discharge present, normal appearing perineal body and perianal region BIMANUAL: uterus normal size, shape and consistency, no adnexal masses, and non-tender NEURO: alert and oriented x3,exam grossly non-focal EXTREMITIES: normal ASSESSMENT AND PLAN: 1. Vaginal discharge - ICD9: 623.5, ICD10: N89.8 (primary diagnosis) - BACTERIAL VAGINOSIS AMPLIFICATION - ABBEY / TRICHOMONAS AMPLIFICATION - GC/CHLAMYDIA DNA DET 2. Screening examination for STD (sexually transmitted disease) - ICD9: V74.5, ICD10: Z11.3 Jenifer Yeager APRN.CNM documented in this encounter [facility] 05-21-2022 Miscellaneous Notes Patient has been identified by name and date of : Yes Pharmacy phones for refill(s): Requested Prescriptions Pending Prescriptions Disp Refills tiotropium bromide (SPIRIVA RESPIMAT) 2.5 mcg/actuation inhaler 1 Each 5 Sig: Inhale 2 Puffs as instructed once daily. Date of last office visit in primary care: 05/14/22 Last 2 Encounter Wt Readings: Date: Wt: 05/14/2022 65.8 kg (145 lb) 05/07/2022 68 kg (150 lb) Please advise. Thank you. Fadumo Romero RN documented in this encounter [facility] 05-20-2022 Miscellaneous Notes Patient has visit tomorrow with [employer]IDE DEVELOPER she is going to take her cuff with her tomorrow. After they take her BP she is going to use her cuff to check. She will then let us know if she needs a new cuff. Please schedule NV BP this week with home cuff to verify. ThanksFaustino PA-C Patient returns call and reports that she is not comfortable waiting until next appointment to verify blood pressure monitor because she is having more high BP readings than normal BP readings. Most recent BP was 137/80 something. The reading before that was 203/183 and the ones before that were 200's/100's. Patient reports in the past 2 weeks she passed out about 5 x and fell 3 x within a couple of days. Recommended if patient is having blood pressure readings that high and passing out with episodes of falling an ED evaluation. Patient reports those symptoms aren't happening right now she just wants a new monitor because the current one can't be trusted. Hanna Mares RN Left message for patient to return call. Bharti Coello Ma Yes I read that information. The point being, how does she know it is not accurate. Thanks, Faustino Palomares PA-C Recommend bring BP monitor to next visit and we will verify if reading correctly. 137/syst is not concerning. ThanksFaustino PA-C Patient reports she was taken off of lisinopril b/c her BP was too low 76/58. She is feeling fine. Her home BP machine is giving her either really high readings 108/186 or normal readings 137/something. States her home monitor is not working right b/c she is feeling fine. Asking pcp to send order to [facility] for a new BP monitor. documented in this encounter [facility] 05-14-2022 History of Present illness Narrative 52 year old female with c/o hospital follow up 05/05/[facility] to [facility] with lightheadedness and multiple syncopal episodes one of them resulting in injury to her right foot. Exam: Vital signs 97.8-89-16-76/57-96% RA, recheck blood pressure 106/75. Physical exam noted to have tenderness to the top of her cervical spine C5 without step-off, right foot pain Removing boot no specific tenderness on palpation, moving all 4 extremities without complication. Labs: CBC WBC 15.6-Hgb 12.2-HCT 36.3-PLT 283-elevated absolute neutrophil 12.0. PT and APTT WNL, D-dimer 0.82H Chems: WNL accepts sodium 134-BUN 20-CR 81.49, EGFR 39. UA: 10-25 WBC, rare bacteria Urine drug screen: Positive for amphetamines, positive for ecstasy, positive for cannabinoids Cervical spine CT: Degeneration cervical spine without acute fracture CXR: Degenerative changes as above, no demonstrated cardiopulmonary process. MDM: Due to unknown reason for hypertension sepsis work-up obtained. Blood pressure improved with 1 L normal saline, does not appear septic. Because of syncope unknown, pancultured, recommended 24-hour observation. Admitted from ER to PCU with following problem list: 1. Recurrent syncope/ERICA: Appears to be vasovagal, repeat orthostatic vital signs, continue IV fluid and monitor on telemetry 2. Hypertension: Hold lisinopril 3. Hypercholesterolemia: Continue Lipitor 4. COPD without exacerbation with chest x-ray indicating bronchiolitis with tree-in-bud appearance, consider antibiotics 5. Chronic pain/anxiety/depression: Continue home medications 6. Hypothyroidism stable: Continue Synthroid 7. GERD: Continue PPI Hospital course: Patient was monitored, given IV fluids with progressive improvement. She was able to get up and down without complication. Repeat orthostatics were normal. Suggestions regarding orthostatic drop were to consider stopping baclofen and/or Flexeril. Lisinopril was held with recommendations to discuss Discharge weight 66.4 kg with a BMI of 21.6 Discharge labs: WBC 9.0-Hgb 11.9-HCT 34.0-PLT 226 And a 137-K3.1-CL 106-CO2 24 with AG 7, BUN 18, creatinine 0.83 with EGFR 77, BUN/Cr ratio 21.8-GLU 96-CA 8.6. 05/05/2022 urine culture negative growth on preliminary 05/05/2022 BC x 2 negative 05/05/2022 CTA: Mild peribronchial thickening with layered fluid or debris in right lung bronchi compatible with bronchitis/bronchiolitis. Scattered tree-in-bud central lobar nodularity in the left lung may be scattered aspiratory atypical infection, largest nodule 8 mm groundglass nodule with 4 mm solid component: Recommend CT follow-up 3 months. Medication reconciliation: Continue medications: Omeprazole 20 mg daily thiamine 50 mg daily Sofosbuvir-velpatasvir 400-100 1tb Bupropion 150 SR Q 12 daily Levothyroxine 25 MCG daily AC Famotidine 20 mg nightly Ferrous sulfate 325 mg p.o. twice daily 1060 mg daily Spiriva Respimat 2.5 MCG per actuation 2 puffs daily Pregabalin 150 mg p.o. 3 times daily A atorvastatin 40 mg at bedtime Vitamin D3 25 mg / 1000 unit daily Albuterol sulfate 2.5-3 mL nebulizer q4h prn Trazodone 50 mg at bedtime Metronidazole 500 mg p.o. twice daily Melatonin 10 mg at bedtime Change medications: Lisinopril 20 mg p.o. daily held Discontinued: Cyclobenzaprine 10 mg tablet List of concerns Nodules in nostrils Weight loss Wet brain Dizzy spells, low blood pressure Headaches to one side or the other, crescendos, has to lay down in dark after taking Tylenol or something and then improves. Daily. No vomiting except rarely. No preceding aura. HISTORIES FAMILY HISTORY Problem Relation Age of Onset Hypertension Mother Cancer Mother lung, metastatic Heart Father Heart Maternal Grandmother Stroke Maternal Grandmother Colon Cancer No Family History PAST MEDICAL HISTORY Diagnosis Date Alcohol abuse Anemia Back pain Blood dyscrasia Cervical spondylosis without myelopathy Cholecystitis 04/2020 DDD (degenerative disc disease), lumbar Depression with anxiety Drug use 08/15/2018 ecstacy Emphysema of lung (HCC) Encounter for support and coordination of transition of care 05/15/2020 HOSPITAL/ER FOLLOW UP Which facility: [facility] Dates of visit: 05/10-05/13/2020 Preadmission evaluation: ER with right-sided abdominal pain over 2-1/2 hours, 10 out of 10. Worse with coughing. States she vomited 20 times the day before, with episodes of diarrhea over the past 2 days. Had used Imodium which improved diarrhea. No known exposures to Covid. Also identified chest pain which started a Encounter for support and coordination of transition of care 05/02/2021 Hospital discharge summary: Date of admission 05/01/2021 Date of discharge: Facility: [facility] 05/01/2021 presented to the emergency room with acute alcohol intoxication, initial alcohol level 7-8. Acknowledges over the last 5 months drinking 15 packs a day at 8% alcohol (natty daddy). Vital signs 96.6 F-78-18-111/73-98%. Appearance was no acute distress. WBC 7.9-Hgb 13.8-HCT 39 GERD (gastroesophageal reflux disease) Hyperglycemia Hypertension Lung abscess (HCC) saw Néstor Li and Dr. Zarate. Major depression Mild protein-calorie malnutrition (HCC) 08/26/2020 Obesity PE (pulmonary thromboembolism) (HCC) PTSD (post-traumatic stress disorder) Snoring Tobacco use disorder PAST SURGICAL HISTORY Procedure Laterality Date CARPAL TUNNEL Left 09/2015 COLONOSCOPY 11/27/2021 COLONOSCOPY FLX DX W/COLLJ SPEC WHEN PFRMD several years ago Colonoscopy COLONOSCOPY FLX DX W/COLLJ SPEC WHEN PFRMD 10/02/2014 Colonoscopy ESOPHAGOGASTRODUODENOSCOPY TRANSORAL DIAGNOSTIC 10/02/2014 EGD HEART CATHETERIZATION 10/30/2013 normal coronary arteries HYSTERECTOMY HX 2004 menorrhagia. JONAS/right oophorectomy. bowel adhesion HYSTERECTOMY HX 1989's LAPAROSCOPY SURG CHOLECYSTECTOMY 05/12/2020 NEUROPLASTY &/TRANSPOS MEDIAN NRV CARPAL TUNNE Right 11/21/2015 Carpal tunnel decomp OVARIAN CYSTECTOMY UNI/BI 1996 left oophorectomy and 20# cyst PAST SURGICAL HISTORY OF 07/2012 Lumbar discectomy L3-L4 PAST SURGICAL HISTORY OF 09/2012 repeat lumbar surgery SKIN GRAFT,SCALP,ARMS,LEGS 12/2013 bilateral posterior thigh autograft, fell in firepit TONSILLECTOMY & ADENOIDECTOMY <AGE 10 1977 Social History Tobacco Use Smoking status: Every Day Packs/day: 0.75 Years: 32.00 Pack years: 24.00 Types: Cigarettes Smokeless tobacco: Never Tobacco comments: started smoking 12yr .5 to .75 of pack daily-in process of quitting as of 09/29/15 Substance Use Topics Alcohol use: Not Currently Drug use: Yes Types: Marijuana ACTIVE PROBLEM LIST Back Pain Ddd (Degenerative Disc Disease), Lumbar Emphysema of Lung (Hcc) Tobacco Use Disorder Hypertension Gerd (Gastroesophageal Reflux Disease) Carpal Tunnel Syndrome, Bilateral Obesity Anemia Radiculopathy, Lumbar Region Alcohol Abuse Chronic Midline Low Back Pain With Left-Sided Sciatica Pe (Pulmonary Thromboembolism) (Hcc) Hyperglycemia Stasis Edema Right Lumbar Radiculopathy Obesity, Class III, BMI >= 40 (morbid obesity) E66.01 Delusional Disorder (Hcc) Chronic Low Back Pain With Sciatica Abnormal Echocardiogram Chronic Left-Sided Low Back Pain With Sciatica Copd (Chronic Obstructive Pulmonary Disease) With Chronic Bronchitis (Hcc) Positive Urine Drug Screen Lumbar Spondylosis Cervical Spondylosis Without Myelopathy Other Chest Pain Stress Incontinence Chronic Active Hepatitis C (Hcc) History of Colonic Polyps Traumatic Closed Nondisp Torus Fracture of Distal Radial Metaphysis, Right, With Routine Healing, Subsequent Encounter Bacterial Vaginosis Spinal Stenosis, Lumbar Region, Without Neurogenic Claudication Cognitive Impairment, Mild, So Stated Current Outpatient Medications Medication Sig Dispense Refill lisinopril (ZESTRIL, PRINIVIL) 20 mg tablet Take 1 tablet by mouth once daily. (Patient not taking: Reported on 05/07/2022) 30 tablet 5 ibuprofen (MOTRIN) 800 mg tablet Take 1 tablet by mouth every 8 hours as needed for pain. Take with food. 30 tablet 1 baclofen (LIORESAL) 10 mg tablet TAKE 1 TABLET BY MOUTH TWICE A DAY (Patient taking differently: Take 5 mg by mouth twice daily.) 60 tablet 2 omeprazole (PRILOSEC) 20 mg capsule Take 1 capsule by mouth once daily. 30 capsule 5 sofosbuvir-velpatasvir 400-100 mg Take one tablet by mouth, with or without food, once daily same time of day 28 tablet 2 Cholecalciferol, Vitamin D3, (VITAMIN D) 25 mcg (1,000 unit) cap Take 1 capsule by mouth once daily. 90 capsule 1 thiamine (VITAMIN B1) 100 mg tablet Take 1 tablet by mouth once daily. 30 tablet 5 mirabegron (MYRBETRIQ) 25 mg Tb24 Take 1 tablet by mouth once daily. 30 tablet 5 atorvastatin (LIPITOR) 40 mg tablet Take 1 tablet by mouth daily at bedtime. 90 tablet 1 pregabalin (LYRICA) 150 mg capsule Take one pill three times per day 90 capsule 5 VITAMIN C 500 mg tablet oxybutynin ER (DITROPAN XL) 10 mg 24 hr tablet Take 1 tablet by mouth once daily. 90 tablet 3 tiotropium bromide (SPIRIVA RESPIMAT) 2.5 mcg/actuation inhaler Inhale 2 Puffs as instructed once daily. 1 Each 5 albuterol (PROVENTIL) 2.5 mg /3 mL (0.083 %) nebulizer solution Use 3 mL via nebulizer every 4 hours as needed for wheezing/shortness of breath. Use over 5-15minutes. 120 mL 5 budesonide-formoterol (SYMBICORT) 160-4.5 mcg/actuation inhaler Inhale 2 Puffs as instructed twice daily. 1 Each 5 ferrous sulfate 325 mg (65 mg iron) tablet Take 1 tablet by mouth twice daily. 56 tablet 11 albuterol HFA (VENTOLIN HFA) 90 mcg/actuation inhaler Inhale 2 Puffs as instructed every 4 hours as needed for wheezing/shortness of breath. 1 Inhaler 11 buPROPion SR (ZYBAN SR; WELLBUTRIN SR) 150 mg 12 hr tablet Nebulizers Use as directed. 1 Each 0 levothyroxine (SYNTHROID) 25 mcg tablet Take 25 mcg by mouth daily before breakfast. FLUoxetine (PROZAC) 20 mg capsule Take 20 mg by mouth once daily. COMPOUNDED PRESCRIPTION Standard size Rollator Walker #1 Dx Large Blood Pressure Cuff #1 M51.36 DDD (degenerative disc disease), lumbar (primary encounter diagnosis) I10 Essential hypertension 1 Each 0 benztropine (COGENTIN) 0.5 mg tablet Take 0.5 mg by mouth daily at bedtime. COMPOUNDED PRESCRIPTION ADJUSTABLE CANE DX M51.36 1 Device 0 No current facility-administered medications for this visit. HEPATITIS B(1 of 3 - 3-dose series) Never done HEPATITIS A(1 of 2 - Risk 2-dose series) Never done SPIROMETRY Never done ALPHA-1 ANTITRYPSIN DEFICIENCY SCREENING Never done LUNG CANCER SCREENING Never done EXAM: BP 148/78 Pulse 93 Wt 65.8 kg (145 lb) SpO2 97% BMI 21.41 kg/m Pleasant Woman with obvious new weight loss. in no acute distress. Alert and oriented all spheres. Normal affect and cognition. Speech normal. No deficits to learning or comprehension. Skin warm, dry, pink to lips and nailbeds. Normal turgor. Hair has normal appearance and texture Respirations regular and unlabored. HEENT: NCAT. No scleral icterus or conjunctival injection. TM's clear. Nose and oropharynx free from injection or lesion. Areas patient is concerned about nasal turbinates, which appear normal. Oral membranes moist and pink. Continues edentulous which is front teeth. No cervical lymph nodes. Thyroid non-tender, no masses, or enlargement. Carotids pulses 2+/4+ without bruits. No JVD with HOB at 30 degrees. Chest is normal shape. Lungs are clear to all coreas with good air exchange through out. HRRR without murmur or gallop. No lifts, heaves, or rubs. Abdomen: active bowel sounds throughout, soft, initially nontender, then had a sharp pain, probably over a gas bubble in the left lower quadrant and was very reactive to any pressure on her abdomen afterwards. No guarding or rebound, no masses or organomegaly. No CVAT. No supraclavicular, axillary or inguinal nodes. Femoral pulses 2 out of 4 plus without bruit. Extrem: no clubbing, cyanosis, edema. Distal pulses 2+/4, prompt capillary refill. Patient does have muscle loss in lower legs Neuro: Patient speech remains slightly slurred. Cranial nerves II through XII grossly intact. Patient does intermittently nearly lose her balance, and generally when she is turning or getting up or down, has to steady herself. Gait is normal. No wide-based stance or ataxia. Extrem: no clubbing or cyanosis. Edema: None. Extremities are warm and pink with prompt capillary refill. ASSESSMENT/PLAN: 1. Hospital discharge follow-up - ICD9: V67.59, ICD10: Z09 (primary diagnosis) Reviewed records with patient, recommendations. Medication reconciliation completed. 2. Lung nodules - ICD9: 793.19, ICD10: R91.8 Discussed with patient risks of smoking marijuana, past history of smoking cigarettes, drug and alcohol use. We will recheck CT chest without contrast in 3 months. Educated on lung nodule recurrence in [place]. - CT CHEST WO IVCON 3. Syncope, unspecified syncope type - ICD9: 780.2, ICD10: R55 Suspect medication related. Patient is pressing to have additional muscle relaxers to help her sleep at night. Declined. 4. Weight loss - ICD9: 783.21, ICD10: R63.4 Unclear. Patient is edentulous suspected difficulty chewing food. She also has had issues related to multiple medications. Significant concern with weight loss in light of patient's increased appetite and intake as well as newly identified lung nodules, will have patient report weekly weights. Consider addition of medication 5. New daily persistent headache - ICD9: 339.42, ICD10: G44.52 Patient is able to manage currently with Tylenol and rest. Discussed the fact that he would prefer not to add additional medications due to polypharmacy. 6. Alcohol abuse, in remission - ICD9: 305.03, ICD10: F10.11 Maintain sobriety 7. Cognitive impairment, mild, so stated - ICD9: 331.83, ICD10: G31.84 Mild, stable 8. Radiculopathy, lumbar region - ICD9: 724.4, ICD10: M54.16 Unhappy because of continued pain but also following up with pain management, declined additional medications for pain at this point, will need to follow-up with Dr. Troy. 9. Chronic hepatitis C without hepatic coma (HCC) - ICD9: 070.54, ICD10: B18.2 Has almost completed treatment. Doing well. Jaimee Palomares PA-C documented in this encounter [facility] 05-11-2022 Miscellaneous Notes TC to patient who verbalizes understanding of providers message with no questions at this time. KYRA Fernandez Message left on patient's voicemail. Fatou Valencia LPN ----- Message from Memo Leahy Jr., MD sent at 05/09/2022 11:19 PM EST ----- Pt's B12 level decreasing over time. Should follow up with PCP for further monitoring and supplementation if necessary. Memo Leahy MD documented in this encounter [facility] 05-07-2022 History of Present illness Narrative NEW PATIENT (CONSULT) HISTORY AND PHYSICAL EXAM PRIMARY CARE PHYSICIAN: Jaimee Palomares PA-C REASON FOR CONSULT: Cognitive impairment REFERRING PHYSICIAN: Jaimee Palomares PA-C CHIEF COMPLAINT: Memory problems Consultation requested by Jaimee Palomares PA-C for an opinion regarding chief complaint of No chief complaint on file. and my final recommendations will be communicated back to the requesting physician by way of shared medical record or letter via [place] mail. HISTORY OF PRESENT ILLNESS: Mariluz Garcia is a 52 year old female, with a PMH significant for that noted below, but review of records would also suggest polysubstance abuse. Pt states she will be in the middle of a sentence and forget what she is going to say. States she has always been forgetful, but worse in the last year. When asked of prior head trauma, states fell off a 2 story balcony when she was 1 years old. Note that throughout the interview patient appears restless. Denies family history of memory problems. States always losing things around the house - states this afternoon walked out to the cab, and then realized she did not take her phone - it was in her back pocket the whole time per pt. States lots of med changes over the past year including starting meds for Hep C, stopping Fentanyl (unclear when but had episode of overdose 6 years ago). When asked of ETOH use states recovering ETOH - states last drank 04/29/21. Does states she smokes cannabis for pain. Denies amphetamine use at first but then states last used about 1 week ago. Memory fluctuates. States will have 1-2 good days and 4-5 bad days per week. States spends days feeling like mind is in a pocket back there . Does have lightheadedness with positional changes but pt has been having hypotension of late with changes being made to BP meds. No LOC. States sleep is getting better - states on a new sleep medication Seroquel and Trazodone and Melatonin - followed by psychiatry. States she is being seen for depression, anxiety and hearing voices. Pt was in [facility] ER yesterday due to syncope, hypotension and dehydration. Tox screen was per formed and positive for amphetamines, ecstacy, and THC. Lisinopril d/c'd. MRI brain 03/22/22 images reviewed and agree with rad report as follows with no findings to explain symptoms: Acute Change: There is no evidence of restricted diffusion to suggest an acute infarct. Hemorrhage: No evidence of prior parenchymal hemorrhage on the SWI. Mass Lesion/ Mass Effect: No evidence of an intracranial mass or extra-axial fluid collection. No significant mass effect. Chronic Change: The white matter is within normal limits of signal intensity for age. Parenchyma: No significant volume loss for age. The brain parenchyma is otherwise within normal limits of signal intensity and morphology. Ventricles: Normal caliber and morphology. Skull Base: Hypothalamic and pituitary region are grossly normal. Craniocervical junction is normal. No significant marrow replacement process. Vasculature: Major intracranial arterial structures, and dural venous sinuses show typical flow void, suggesting patency by spin echo criteria. Other: The visualized paranasal sinuses and mastoid air cells are clear except for mucus retention cyst right maxillary sinus. The orbits and extracranial soft tissues are unremarkable. TSH Date Value Ref Range Status 03/09/2022 2.590 0.270 - 4.200 mIU/L Final Vitamin B12 Date Value Ref Range Status 07/14/2016 938 211 - 946 pg/mL Final Modified MOCA: Immediate recall: 10/22 Naming intact: 08/20 Number repeat: 07/22 (fwd and bkwd) Sentence repeat: 07/22 Serial 7s: [id number] 08/20 Similar objects: 07/22 Orientation: May 07, 2022, Fri, [place], [place] 11/23 Delayed recall: 10/22 Clock Drawin/3 Cube Drawin/1 REVIEW OF SYSTEMS GENERAL:No weight loss, malaise or fevers. HEENT:Negative for frequent or significant headaches, No changes in hearing or vision, no nose bleeds or other nasal problems NECK:Negative for lumps, goiter, pain and significant neck swelling RESPIRATORY: Negative for cough, wheezing or shortness of breath. CARDIOVASCULAR: Negative for chest pain, leg swelling or palpitations. GASTROINTESTINAL: Negative for abdominal discomfort, blood in stools or black stools or change in bowel habits GENITOURINARY: No history of dysuria, frequency or incontinence NEUROLOGIC:See HPI SKIN:Negative for lesions, rash, and itching. PSYCHIATRIC: See HPI. HEMATOLOGIC/LYMPHATIC/IMMUNOLOGIC : I have internal bleeding but they do not know where . ENDOCRINE: Negative for cold or heat intolerance, polyuria, polydipsia and goiter. The remainder of the ROS was reviewed and is negative. LAB/IMAGING: Reviewed and include: WBC (k/uL) Date Value 03/09/2022 7.38 RBC (m/uL) Date Value 03/09/2022 4.13 Hemoglobin (g/dL) Date Value 03/09/2022 13.1 Hematocrit (%) Date Value 03/09/2022 40.5 MCV (fL) Date Value 03/09/2022 98.1 MCH (pg) Date Value 03/09/2022 31.7 MCHC (g/dL) Date Value 03/09/2022 32.3 RDW-CV (%) Date Value 03/09/2022 12.5 Platelet Count (k/uL) Date Value 03/09/2022 241 MPV (fL) Date Value 03/09/2022 12.0 Glucose (mg/dL) Date Value 03/09/2022 72 (L) BUN (mg/dL) Date Value 03/09/2022 9 Creatinine (mg/dL) Date Value 03/09/2022 0.57 (L) Sodium (mmol/L) Date Value 03/09/2022 139 Potassium (mmol/L) Date Value 03/09/2022 4.4 Chloride (mmol/L) Date Value 03/09/2022 104 CO2 (mmol/L) Date Value 03/09/2022 27 Protein, Total (g/dL) Date Value 03/09/2022 7.1 Albumin (g/dL) Date Value 03/09/2022 3.6 (L) Calcium, Total (mg/dL) Date Value 03/09/2022 9.2 Alkaline Phosphatase (U/L) Date Value 03/09/2022 70 Bilirubin, Total (mg/dL) Date Value 03/09/2022 0.4 AST (U/L) Date Value 03/09/2022 22 ALT (U/L) Date Value 03/09/2022 17 Hep C Antibody IA (no units) Date Value 11/12/2021 Positive (A) MEDICATIONS: lisinopril (ZESTRIL, PRINIVIL) 20 mg tablet Take 1 tablet by mouth once daily. ibuprofen (MOTRIN) 800 mg tablet Take 1 tablet by mouth every 8 hours as needed for pain. Take with food. baclofen (LIORESAL) 10 mg tablet TAKE 1 TABLET BY MOUTH TWICE A DAY omeprazole (PRILOSEC) 20 mg capsule Take 1 capsule by mouth once daily. sofosbuvir-velpatasvir 400-100 mg Take one tablet by mouth, with or without food, once daily same time of day Cholecalciferol, Vitamin D3, (VITAMIN D) 25 mcg (1,000 unit) cap Take 1 capsule by mouth once daily. thiamine (VITAMIN B1) 100 mg tablet Take 1 tablet by mouth once daily. mirabegron (MYRBETRIQ) 25 mg Tb24 Take 1 tablet by mouth once daily. atorvastatin (LIPITOR) 40 mg tablet Take 1 tablet by mouth daily at bedtime. pregabalin (LYRICA) 150 mg capsule Take one pill three times per day VITAMIN C 500 mg tablet oxybutynin ER (DITROPAN XL) 10 mg 24 hr tablet Take 1 tablet by mouth once daily. tiotropium bromide (SPIRIVA RESPIMAT) 2.5 mcg/actuation inhaler Inhale 2 Puffs as instructed once daily. albuterol (PROVENTIL) 2.5 mg /3 mL (0.083 %) nebulizer solution Use 3 mL via nebulizer every 4 hours as needed for wheezing/shortness of breath. Use over 5-15minutes. budesonide-formoterol (SYMBICORT) 160-4.5 mcg/actuation inhaler Inhale 2 Puffs as instructed twice daily. ferrous sulfate 325 mg (65 mg iron) tablet Take 1 tablet by mouth twice daily. albuterol HFA (VENTOLIN HFA) 90 mcg/actuation inhaler Inhale 2 Puffs as instructed every 4 hours as needed for wheezing/shortness of breath. buPROPion SR (ZYBAN SR; WELLBUTRIN SR) 150 mg 12 hr tablet Nebulizers Use as directed. levothyroxine (SYNTHROID) 25 mcg tablet Take 25 mcg by mouth daily before breakfast. FLUoxetine (PROZAC) 20 mg capsule Take 20 mg by mouth once daily. COMPOUNDED PRESCRIPTION Standard size Rollator Walker #1 Dx Large Blood Pressure Cuff #1 M51.36 DDD (degenerative disc disease), lumbar (primary encounter diagnosis) I10 Essential hypertension benztropine (COGENTIN) 0.5 mg tablet Take 0.5 mg by mouth daily at bedtime. COMPOUNDED PRESCRIPTION ADJUSTABLE CANE DX M51.36 HISTORIES PAST MEDICAL HISTORY Diagnosis Date Alcohol abuse Anemia Back pain Blood dyscrasia Cervical spondylosis without myelopathy Cholecystitis 04/2020 DDD (degenerative disc disease), lumbar Depression with anxiety Drug use 08/15/2018 ecstacy Emphysema of lung ([facility]) Encounter for support and coordination of transition of care 05/15/2020 HOSPITAL/ER FOLLOW UP Which facility: [facility] Dates of visit: 05/10-05/13/2020 Preadmission evaluation: ER with right-sided abdominal pain over 2-1/2 hours, 10 out of 10. Worse with coughing. States she vomited 20 times the day before, with episodes of diarrhea over the past 2 days. Had used Imodium which improved diarrhea. No known exposures to Covid. Also identified chest pain which started a Encounter for support and coordination of transition of care 05/02/2021 Hospital discharge summary: Date of admission 05/01/2021 Date of discharge: Facility: [facility] 05/01/2021 presented to the emergency room with acute alcohol intoxication, initial alcohol level 7-8. Acknowledges over the last 5 months drinking 15 packs a day at 8% alcohol (nataidan samaniego). Vital signs 96.6 F-78-18-111/73-98%. Appearance was no acute distress. WBC 7.9-Hgb 13.8-HCT 39 GERD (gastroesophageal reflux disease) Hyperglycemia Hypertension Lung abscess (HCC) saw Néstor Li and Dr. Zarate. Major depression Mild protein-calorie malnutrition (HCC) 08/26/2020 Obesity PE (pulmonary thromboembolism) (HCC) PTSD (post-traumatic stress disorder) Snoring Tobacco use disorder FAMILY HISTORY Problem Relation Age of Onset Hypertension Mother Cancer Mother lung, metastatic Heart Father Heart Maternal Grandmother Stroke Maternal Grandmother Colon Cancer No Family History SOCIAL HISTORY Social History Tobacco Use Smoking status: Every Day Packs/day: 0.75 Years: 32.00 Pack years: 24.00 Types: Cigarettes Smokeless tobacco: Never Tobacco comments: started smoking 12yr .5 to .75 of pack daily-in process of quitting as of 09/29/15 Substance Use Topics Alcohol use: Not Currently Drug use: Yes Types: Marijuana PHYSICAL EXAMINATION Blood pressure 118/62, pulse 80, temperature 36.6 C (97.8 F), resp. rate 18, weight 68 kg (150 lb), SpO2 97 %. GENERAL EXAM: General appearance: NAD, restless. HEENT: NC/AT, nasal congestion absent, no oral lesions, membranes moist. Lungs: CTA bilaterally. CV: RRR nl S1, S2. No carotid bruits. Extr: No cyanosis, clubbing or edema. Skin: Cool to touch. NEUROLOGICAL EXAM: General: Awake, alert, oriented x3 (person,place,time), speech fluent, no dysarthria; comprehension, naming, repetition intact. Fund of knowledge grossly normal by MOCA. CN: PERRL, fundi with no evidence of papilledema, EOMI and without nystagmus, VFF to confrontation, facial sensation and strength are normal and symmetric, hearing is intact to finger rub bilaterally, palate and tongue movements are intact and symmetric. SCM and trapezius strength normal. Motor: Normal tone, bulk and strength (5/5) bilaterally (throughout extremities x4). Reflexes: 1/4 and symmetric, plantar stimulation is flexor. Coordination: FNF, JOSE, HTS intact. No tremors. Sensation: Light touch and vibration intact throughout. No evidence of neglect. Gait: Stable with normal stride and arm swing. Romberg normal. Assessment and Plan: ASSESSMENT/PLAN: 1. Cognitive impairment - ICD9: 294.9, ICD10: R41.89 (primary diagnosis) 2. Alcohol abuse, in remission - ICD9: 305.03, ICD10: F10.11 3. Polysubstance abuse (HCC) - ICD9: 305.90, ICD10: F19.10 4. Polypharmacy - ICD9: V58.69, ICD10: Z79.899 Patient with complaints of cognitive impairment for which she has already undergone some degree of workup including MRI brain that per report and review was unremarkable for etiology of complaints. Recent TSH unremarkable. MOCA performed today in office normal. Neuro exam non focal including no abnormal eye movements or ataxia. Patient concerned for Wernicke-Korsakoff's, but exam is not suggestive of either. Appears cognition and mental status acutally fluctuating rather than progressive declining and I suspect that this is either due to metabolic derangements, pseudodementia with known mood disorders and possible auditory hallucinations, polypharmacy and possible med non-compliance with pt on multiple sedating meds, possible ETOH use (known history of abuse) and polysubstance abuse with pt admitting to and having + tox screen x2 over the past 4-5 months as above. At this time, will proceed with workup for other metabolic causes of symptoms: - VITAMIN B12 BLOOD - VITAMIN B1 (THIAMINE), WHOLE BLOOD - T4 FREE/FREE THYROX - TSH BLD - AMMONIA BLD Given normal MOCA and multiple known risks for cognitive impairment, would not recommend neurocognitive testing at this time. If metabolic workup above unremarkable, then recommend follow up with psychiatry as well as need for patient to cease both ETOH and drug use (latter encouraged during visit). Also would recommend those prescribing, attempt to reduce the number of or dosing of meds that might result in sedation, confusion or neuro depression. Pt will follow up with us next year to confirm no decline in function. If no changes at that time can follow up prn. Memo Leahy MD I spent a total of 60+ minutes on the date of the service which included preparing to see the patient, [id number] patient care, completing clinical documentation, obtaining and/or reviewing separately obtained history, performing a medically appropriate examination, counseling and educating the patient/family/caregiver, ordering medications, tests, or procedures, independently interpreting results (not separately reported), and communicating results to the patient/family/caregiver. documented in this encounter [facility] 05-07-2022 Miscellaneous Notes Patient called in leaving a voicemail asking for a call back. Nothing was stated what it was about. Sheila Granado documented in this encounter [facility] 04-23-2022 Miscellaneous Notes Patient has been identified by name and date of : Yes Pharmacy phones for refill(s): Requested Prescriptions Pending Prescriptions Disp Refills lisinopril (ZESTRIL, PRINIVIL) 20 mg tablet 30 tablet 5 Sig: Take 1 tablet by mouth once daily. Date of last office visit in primary care: 04/01/2022, has appt 05/14/2022 Last 2 Encounter Wt Readings: Date: Wt: 04/01/2022 73.5 kg (162 lb) 03/17/2022 74.4 kg (164 lb) Previous labs/tests for medication: Blood Pressure: BUN (mg/dL) Date Value 03/09/2022 9 11/05/2019 13 Sodium (mmol/L) Date Value 03/09/2022 139 11/05/2019 137 Last 1 Encounter BP Readings: Date: BP: 04/01/2022 128/78 Please advise. Thank you. Maribell Baltazar LPN documented in this encounter [facility] 04-19-2022 Miscellaneous Notes Pt calls to report she takes 2-3 ibuprofen 800 tabs daily but only gets prescribed #30 rf 1 so pt runs out of medication quickly. Pt reports she did not get any ibuprofen in this month's delivery from [facility] and was advised that she needed a new rx. Please review and advise . Patient has been identified by name and date of : Yes Requested Prescriptions Pending Prescriptions Disp Refills ibuprofen (MOTRIN) 800 mg tablet 30 tablet 1 Sig: Take 1 tablet by mouth every 8 hours as needed for pain. Take with food. RX INSTRUCTIONS: Patient aware RX will be sent to pharmacy. No need to notify patient. Zoraida Garcia LPN documented in this encounter [facility] 04-01-2022 Aura Palomares PA-C - 04/01/2022 9:37 AM EDT Desvenlafaxine: Patient drug information Access [employer] Online for additional drug information, tools, and databases. Copyright 4804-6187 [employer]. All rights reserved. (For additional information see Desvenlafaxine: Drug information ) You must carefully read the Consumer Information Use and Disclaimer below in order to understand and correctly use this information. Brand Names: [place] Khedezla [DSC]; Pristiq Brand Names: Caridad APO-Desvenlafaxine; Pristiq Warning Drugs like this one have raised the chance of suicidal thoughts or actions in children and young adults. The risk may be greater in people who have had these thoughts or actions in the past. All people who take this drug need to be watched closely. Call the doctor right away if signs like low mood (depression), nervousness, restlessness, grouchiness, panic attacks, or changes in mood or actions are new or worse. Call the doctor right away if any thoughts or actions of suicide occur. This drug is not approved for use in children. Talk with the doctor. What is this drug used for? It is used to treat low mood (depression). It may be given to you for other reasons. Talk with the doctor. What do I need to tell my doctor BEFORE I take this drug? If you are allergic to this drug; any part of this drug; or any other drugs, foods, or substances. Tell your doctor about the allergy and what signs you had. If you have narrow-angle glaucoma. If you are taking any of these drugs: Linezolid or methylene blue. If you have taken certain drugs for depression or Parkinson's disease in the last 14 days. This includes isocarboxazid, phenelzine, tranylcypromine, selegiline, or rasagiline. Very high blood pressure may happen. If you are taking another drug that has the same drug in it. If you are using another drug like this one. If you are not sure, ask your doctor or pharmacist. This is not a list of all drugs or health problems that interact with this drug. Tell your doctor and pharmacist about all of your drugs (prescription or OTC, natural products, vitamins) and health problems. You must check to make sure that it is safe for you to take this drug with all of your drugs and health problems. Do not start, stop, or change the dose of any drug without checking with your doctor. What are some things I need to know or do while I take this drug? Tell all of your health care providers that you take this drug. This includes your doctors, nurses, pharmacists, and dentists. It may take several months to see full effect. Avoid driving and doing other tasks or actions that call for you to be alert until you see how this drug affects you. To lower the chance of feeling dizzy or passing out, rise slowly if you have been sitting or lying down. Be careful going up and down stairs. Do not stop taking this drug all of a sudden without calling your doctor. You may have a greater risk of side effects. If you need to stop this drug, you will want to slowly stop it as ordered by your doctor. High blood pressure has happened with this drug. Have your blood pressure checked as you have been told by your doctor. Avoid drinking alcohol while taking this drug. Talk with your doctor before you use marijuana, other forms of cannabis, or prescription or OTC drugs that may slow your actions. This drug may raise the chance of bleeding. Sometimes, bleeding can be life-threatening. Talk with the doctor. Some people may have a higher chance of eye problems with this drug. Your doctor may want you to have an eye exam to see if you have a higher chance of these eye problems. Call your doctor right away if you have eye pain, change in eyesight, or swelling or redness in or around the eye. This drug can cause low sodium levels. Very low sodium levels can be life-threatening, leading to seizures, passing out, trouble breathing, or . This drug may affect certain lab tests. Tell all of your health care providers and lab workers that you take this drug. If you are 65 or older, use this drug with care. You could have more side effects. Tell your doctor if you are , plan on getting , or are breast-feeding. You will need to talk about the benefits and risks to you and the baby. Taking this drug in the third trimester of may lead to some health problems in the . Talk with the doctor. What are some side effects that I need to call my doctor about right away? WARNING/CAUTION: Even though it may be rare, some people may have very bad and sometimes deadly side effects when taking a drug. Tell your doctor or get medical help right away if you have any of the following signs or symptoms that may be related to a very bad side effect: Signs of an allergic reaction, like rash; hives; itching; red, swollen, blistered, or peeling skin with or without fever; wheezing; tightness in the chest or throat; trouble breathing, swallowing, or talking; unusual hoarseness; or swelling of the mouth, face, lips, tongue, or throat. Signs of low sodium levels like headache, trouble focusing, memory problems, feeling confused, weakness, seizures, or change in balance. Signs of bleeding like throwing up or coughing up blood; vomit that looks like coffee grounds; blood in the urine; black, red, or tarry stools; bleeding from the gums; abnormal vaginal bleeding; bruises without a cause or that get bigger; or bleeding you cannot stop. Signs of high blood pressure like very bad headache or dizziness, passing out, or change in eyesight. Signs of lung or breathing problems like shortness of breath or other trouble breathing, cough, or fever. Chest pain or pressure. Seizures. Feeling very tired or weak. Hallucinations (seeing or hearing things that are not there). Some men have had sexual problems when taking this drug. These include lowered interest in sex and not able to get an erection. Call your doctor right away if you have sexual problems when taking this drug. A severe and sometimes deadly problem called serotonin syndrome may happen. The risk may be greater if you also take certain other drugs. Call your doctor right away if you have agitation; change in balance; confusion; hallucinations; fever; fast or abnormal heartbeat; flushing; muscle twitching or stiffness; seizures; shivering or shaking; sweating a lot; severe diarrhea, upset stomach, or throwing up; or very bad headache. What are some other side effects of this drug? All drugs may cause side effects. However, many people have no side effects or only have minor side effects. Call your doctor or get medical help if any of these side effects or any other side effects bother you or do not go away: Feeling dizzy, sleepy, tired, or weak. Upset stomach or throwing up. Constipation. Dry mouth. Trouble sleeping. Not hungry. Sweating. Shakiness. You may see something that looks like the tablet in your stool. This is normal and not a cause for concern. If you have questions, talk with your doctor. These are not all of the side effects that may occur. If you have questions about side effects, call your doctor. Call your doctor for medical advice about side effects. You may report side effects to your national health agency. How is this drug best taken? Use this drug as ordered by your doctor. Read all information given to you. Follow all instructions closely. Take with or without food. Swallow whole with fluid. Do not chew, break, crush, or dissolve. Take this drug at the same time of day. Keep taking this drug as you have been told by your doctor or other health care provider, even if you feel well. What do I do if I miss a dose? Take a missed dose as soon as you think about it. If it is close to the time for your next dose, skip the missed dose and go back to your normal time. Do not take 2 doses at the same time or extra doses. How do I store and/or throw out this drug? Store at room temperature. Store in a dry place. Do not store in a bathroom. Keep all drugs in a safe place. Keep all drugs out of the reach of children and pets. Throw away unused or drugs. Do not flush down a toilet or pour down a drain unless you are told to do so. Check with your pharmacist if you have questions about the best way to throw out drugs. There may be drug take-back programs in your area. General drug facts If your symptoms or health problems do not get better or if they become worse, call your doctor. Do not share your drugs with others and do not take anyone else's drugs. Some drugs may have another patient information leaflet. If you have any questions about this drug, please talk with your doctor, nurse, pharmacist, or other health care provider. If you think there has been an overdose, call your poison control center or get medical care right away. Be ready to tell or show what was taken, how much, and when it happened. Last Reviewed [id number] Consumer Information Use and Disclaimer This information should not be used to decide whether or not to take this medicine or any other medicine. Only the healthcare provider has the knowledge and training to decide which medicines are right for a specific patient. This information does not endorse any medicine as safe, effective, or approved for treating any patient or health condition. This is only a brief summary of general information about this medicine. It does NOT include all information about the possible uses, directions, warnings, precautions, interactions, adverse effects, or risks that may apply to this medicine. This information is not specific medical advice and does not replace information you receive from the healthcare provider. You must talk with the healthcare provider for complete information about the risks and benefits of using this medicine. The use of this information is governed by the [employer] End User License Agreement, available at https://www.[employer]/en/ solutions/[employer]/about/garcia. 2020 [employer]. and its affiliates and/or licensors. All rights reserved. Use of [employer] is subject to the Subscription and License Agreement. Topic 67201 Version 147.0 documented in this encounter [facility] 04-01-2022 History of Present illness Narrative 52 year old female with c/o here for follow up. Alcohol abuse, in remission: remains sober Memory impairment: Cognitive impairment, mild, so stated persistent, sucks . Discussed MRI results results again Brown-colored urine Dehydration 02/24/2022 ED visit for dehydration. Component Latest Ref Rng & Units 03/09/2022 Protein, Total 6.3 - 8.0 g/dL 7.1 Albumin 3.9 - 4.9 g/dL 3.6 (L) Calcium 8.5 - 10.2 mg/dL 9.2 Bilirubin, Total 0.2 - 1.3 mg/dL 0.4 Alkaline Phosphatase 34 - 123 U/L 70 AST 13 - 35 U/L 22 ALT 7 - 38 U/L 17 Glucose 74 - 99 mg/dL 72 (L) BUN 7 - 21 mg/dL 9 Creatinine 0.58 - 0.96 mg/dL 0.57 (L) Sodium 136 - 144 mmol/L 139 Potassium 3.7 - 5.1 mmol/L 4.4 Chloride 97 - 105 mmol/L 104 CO2 22 - 30 mmol/L 27 Anion Gap 9 - 18 mmol/L 8 (L) eGFR >=60 mL/min/1.73m 109 Essential hypertension Current meds: Lisinopril 20mg daily Patient is compliant with meds Yes Monitors bp at home: No. If yes, readings: Denies side effects: Yes. Chest pain: No. Dyspnea: No. Edema: No. Palpitations: No. Syncope: No. Headache: No. Dizziness: No. Last 3 Encounter BP Readings: Date: BP: 04/01/2022 128/78 03/17/2022 122/84 02/25/2022 110/72 Last 2 Encounter Wt Readings: Date: Wt: 04/01/2022 73.5 kg (162 lb) 03/17/2022 74.4 kg (164 lb) Radiculopathy, lumbar region Chronic left-sided low back pain with sciatica, sciatica laterality unspecified Seeing spine surgeon Dr. Wright Ordered MRI Seeing Dr. Troy for L4-5: injections 04/07/2022 cervical, scheduled 04/21/2022 Scheduled for cervical ablation 04/21/2022 Constant pain, using rollator for balance. Left leg gives out. L5-S1 Chronic hepatitis c without hepatic coma (hcc) Started treatment Current medications: Sofosbuvir-pvelpatasvir 400-100mg daily Seems to be tolerating well. 03/17/2022 Dr. Whitlock: instructed to take omeprazole during treatment Delusional disorder Stopped Latuda. Feels it made no difference with depression and she felt foggy on it. Sees Dr. Garay- plans to make appt HISTORIES FAMILY HISTORY Problem Relation Age of Onset Hypertension Mother Cancer Mother lung, metastatic Heart Father Heart Maternal Grandmother Stroke Maternal Grandmother Colon Cancer No Family History PAST MEDICAL HISTORY Diagnosis Date Alcohol abuse Anemia Back pain Blood dyscrasia Cervical spondylosis without myelopathy Cholecystitis 04/2020 DDD (degenerative disc disease), lumbar Depression with anxiety Drug use 08/15/2018 ecstacy Emphysema of lung (HCC) Encounter for support and coordination of transition of care 05/15/2020 HOSPITAL/ER FOLLOW UP Which facility: [facility] Dates of visit: 05/10-05/13/2020 Preadmission evaluation: ER with right-sided abdominal pain over 2-1/2 hours, 10 out of 10. Worse with coughing. States she vomited 20 times the day before, with episodes of diarrhea over the past 2 days. Had used Imodium which improved diarrhea. No known exposures to Covid. Also identified chest pain which started a Encounter for support and coordination of transition of care 05/02/2021 Hospital discharge summary: Date of admission 05/01/2021 Date of discharge: Facility: [facility] 05/01/2021 presented to the emergency room with acute alcohol intoxication, initial alcohol level 7-8. Acknowledges over the last 5 months drinking 15 packs a day at 8% alcohol (marcin samaniego). Vital signs 96.6 [id number]%. Appearance was no acute distress. WBC 7.9-Hgb 13.8-HCT 39 GERD (gastroesophageal reflux disease) Hyperglycemia Hypertension Lung abscess (HCC) saw Néstor Li and Dr. Zarate. Major depression Mild protein-calorie malnutrition (HCC) 08/26/2020 Obesity PE (pulmonary thromboembolism) (HCC) PTSD (post-traumatic stress disorder) Snoring Tobacco use disorder PAST SURGICAL HISTORY Procedure Laterality Date CARPAL TUNNEL Left 09/2015 COLONOSCOPY 11/27/2021 COLONOSCOPY FLX DX W/COLLJ SPEC WHEN PFRMD several years ago Colonoscopy COLONOSCOPY FLX DX W/COLLJ SPEC WHEN PFRMD 10/02/2014 Colonoscopy ESOPHAGOGASTRODUODENOSCOPY TRANSORAL DIAGNOSTIC 10/02/2014 EGD HEART CATHETERIZATION 10/30/2013 normal coronary arteries HYSTERECTOMY HX 2004 menorrhagia. JONAS/right oophorectomy. bowel adhesion HYSTERECTOMY HX 1989's LAPAROSCOPY SURG CHOLECYSTECTOMY 05/12/2020 NEUROPLASTY &/TRANSPOS MEDIAN NRV CARPAL TUNNE Right 11/21/2015 Carpal tunnel decomp OVARIAN CYSTECTOMY UNI/BI 1996 left oophorectomy and 20# cyst PAST SURGICAL HISTORY OF 07/2012 Lumbar discectomy L3-L4 PAST SURGICAL HISTORY OF 09/2012 repeat lumbar surgery SKIN GRAFT,SCALP,ARMS,LEGS 12/2013 bilateral posterior thigh autograft, fell in firepit TONSILLECTOMY & ADENOIDECTOMY <AGE 10 1977 Social History Tobacco Use Smoking status: Every Day Packs/day: 0.75 Years: 32.00 Pack years: 24.00 Types: Cigarettes Smokeless tobacco: Never Tobacco comments: started smoking 12yr .5 to .75 of pack daily-in process of quitting as of 09/29/15 Substance Use Topics Alcohol use: Not Currently Drug use: Yes Types: Marijuana ACTIVE PROBLEM LIST Back Pain Ddd (Degenerative Disc Disease), Lumbar Emphysema of Lung (Hcc) Tobacco Use Disorder Hypertension Gerd (Gastroesophageal Reflux Disease) Carpal Tunnel Syndrome, Bilateral Obesity Anemia Radiculopathy, Lumbar Region Alcohol Abuse Chronic Midline Low Back Pain With Left-Sided Sciatica Pe (Pulmonary Thromboembolism) (Hcc) Hyperglycemia Stasis Edema Right Lumbar Radiculopathy Obesity, Class III, BMI >= 40 (morbid obesity) E66.01 Delusional Disorder (Hcc) Chronic Low Back Pain With Sciatica Abnormal Echocardiogram Chronic Left-Sided Low Back Pain With Sciatica Copd (Chronic Obstructive Pulmonary Disease) With Chronic Bronchitis (Hcc) Positive Urine Drug Screen Lumbar Spondylosis Cervical Spondylosis Without Myelopathy Other Chest Pain Stress Incontinence Chronic Active Hepatitis C (Hcc) History of Colonic Polyps Traumatic Closed Nondisp Torus Fracture of Distal Radial Metaphysis, Right, With Routine Healing, Subsequent Encounter Bacterial Vaginosis Spinal Stenosis, Lumbar Region, Without Neurogenic Claudication Cognitive Impairment, Mild, So Stated Current Outpatient Medications Medication Sig Dispense Refill baclofen (LIORESAL) 10 mg tablet TAKE 1 TABLET BY MOUTH TWICE A DAY 60 tablet 2 omeprazole (PRILOSEC) 20 mg capsule Take 1 capsule by mouth once daily. 30 capsule 5 sofosbuvir/velpatasvir (EPCLUSA ORAL) Take by mouth. ibuprofen (MOTRIN) 800 mg tablet Take 1 tablet by mouth every 8 hours as needed for pain. Take with food. 30 tablet 1 sofosbuvir-velpatasvir 400-100 mg Take one tablet by mouth, with or without food, once daily same time of day 28 tablet 2 Cholecalciferol, Vitamin D3, (VITAMIN D) 25 mcg (1,000 unit) cap Take 1 capsule by mouth once daily. 90 capsule 1 thiamine (VITAMIN B1) 100 mg tablet Take 1 tablet by mouth once daily. 30 tablet 5 mirabegron (MYRBETRIQ) 25 mg Tb24 Take 1 tablet by mouth once daily. 30 tablet 5 atorvastatin (LIPITOR) 40 mg tablet Take 1 tablet by mouth daily at bedtime. 90 tablet 1 pregabalin (LYRICA) 150 mg capsule Take one pill three times per day 90 capsule 5 VITAMIN C 500 mg tablet oxybutynin ER (DITROPAN XL) 10 mg 24 hr tablet Take 1 tablet by mouth once daily. 90 tablet 3 tiotropium bromide (SPIRIVA RESPIMAT) 2.5 mcg/actuation inhaler Inhale 2 Puffs as instructed once daily. 1 Each 5 lisinopril (ZESTRIL, PRINIVIL) 20 mg tablet Take 1 tablet by mouth once daily. 30 tablet 5 albuterol (PROVENTIL) 2.5 mg /3 mL (0.083 %) nebulizer solution Use 3 mL via nebulizer every 4 hours as needed for wheezing/shortness of breath. Use over 5-15minutes. 120 mL 5 budesonide-formoterol (SYMBICORT) 160-4.5 mcg/actuation inhaler Inhale 2 Puffs as instructed twice daily. 1 Each 5 ferrous sulfate 325 mg (65 mg iron) tablet Take 1 tablet by mouth twice daily. 56 tablet 11 albuterol HFA (VENTOLIN HFA) 90 mcg/actuation inhaler Inhale 2 Puffs as instructed every 4 hours as needed for wheezing/shortness of breath. 1 Inhaler 11 buPROPion SR (ZYBAN SR; WELLBUTRIN SR) 150 mg 12 hr tablet Nebulizers Use as directed. 1 Each 0 lurasidone (LATUDA) 80 mg tablet Take 80 mg by mouth once daily. with meals take with 350 calories. levothyroxine (SYNTHROID) 25 mcg tablet Take 25 mcg by mouth daily before breakfast. FLUoxetine (PROZAC) 20 mg capsule Take 20 mg by mouth once daily. COMPOUNDED PRESCRIPTION Standard size Rollator Walker #1 Dx Large Blood Pressure Cuff #1 M51.36 DDD (degenerative disc disease), lumbar (primary encounter diagnosis) I10 Essential hypertension 1 Each 0 benztropine (COGENTIN) 0.5 mg tablet Take 0.5 mg by mouth daily at bedtime. COMPOUNDED PRESCRIPTION ADJUSTABLE CANE DX M51.36 1 Device 0 No current facility-administered medications for this visit. HEPATITIS B(1 of 3 - 3-dose series) Never done HEPATITIS A(1 of 2 - Risk 2-dose series) Never done SPIROMETRY Never done BP CONTROLLED (<130/80) Never done ALPHA-1 ANTITRYPSIN DEFICIENCY SCREENING Never done LUNG CANCER SCREENING Never done DEPRESSION ASSESSMENT Never done SHINGRIX VACCINE(2 of 2) due on 01/07/2022 COVID-19 VACCINE(3 - Booster for Leroy series) due on 01/07/2022 INFLUENZA(1) due on 02/18/2022 EXAM: BP 128/78 Pulse 69 Resp 20 Wt 73.5 kg (162 lb) SpO2 96% BMI 23.92 kg/m Pleasant adult woman, losing weight but states trying, in no acute distress. Alert and oriented all spheres. Normal affect and cognition. Speech per usual. No deficits to learning or comprehension. Skin warm, dry, pink to lips and nailbeds. Normal turgor. Respirations regular and unlabored. HEENT: NCAT. No scleral icterus or conjunctival injection. TM's clear. Nose and oropharynx free from injection or lesion. Oral membranes moist and pink. No cervical lymph nodes. Thyroid non-tender, no masses, or enlargement. Carotids pulses 2+/4+ without bruits. No JVD with HOB at 30 degrees. Chest is normal shape. Lungs are clear to all coreas with good air exchange through out. HRRR without murmur or gallop. No lifts, heaves, or rubs. Extrem: no clubbing or cyanosis. Edema: none. Extremities are warm and pink with prompt capillary refill. ASSESSMENT/PLAN: 1. Alcohol abuse, in remission - ICD9: 305.03, ICD10: F10.11 (primary diagnosis) Professing sobriety and doing well. 2. Memory impairment - ICD9: 780.93, ICD10: R41.3 Mild, stable Reviewed Wernicke's 3. Brown-colored urine - ICD9: 791.9, ICD10: R82.998 Resolved. Renal at baseline 4. Cognitive impairment, mild, so stated - ICD9: 331.83, ICD10: G31.84 Mild, patient remains independently funcitonal 5. Essential hypertension - ICD9: 401.9, ICD10: I10 - good control - Continue current medication(s) - Recommended regular aerobic exercise. - Recommend home blood pressure monitoring, to bring results in on next visit - Goal of BP <130/80 6. Radiculopathy, lumbar region - ICD9: 724.4, ICD10: M54.16 7. Chronic left-sided low back pain with sciatica, sciatica laterality unspecified - ICD9: 724.2, 724.3, 338.29, ICD10: M54.40, G89.29 Following with spine and pain management, has had some progress 8. Chronic hepatitis C without hepatic coma (HCC) - ICD9: 070.54, ICD10: B18.2 Tolerating treamtent well 9. Need for influenza vaccination - ICD9: V04.81, ICD10: Z23 - INFLUENZA VACCINE QUADRIVALENT 6 MO - 64 YRS IM 10. Need for COVID-19 vaccine - ICD9: V04.89, ICD10: Z23 - PFIZER-BIONTECH COVID-19 BIVALENT BOOSTER VACCINE, AGE 12+ YR 11. Delusional disorder (HCC) - ICD9: 297.1, ICD10: F22 Agrees to see psych for med follow up- will schedule Jaimee Palomares PA-C documented in this encounter [facility] 03-26-2022 Miscellaneous Notes Refill approved. Has appointment in April. Deloris Troy III, MD, [facility] Telephone Medication Refill Request Name/dose: BACLOFEN 10 Amount dispensed monthly: 60 Date last filled: 01/01/22 Date last seen in office: 04/16/2021 Provider: Deloris Troy MD Next scheduled visit: 05/06/22 Pharmacy: [facility] - [id number] [place] [address] - [address] [phone] [address] [place] [address] Odalys Brizuela MA documented in this encounter [facility] 03-25-2022 Miscellaneous Notes Patient arrived 17 minutes after scheduled appointment. I asked Shira if she would still be brendon to see patient and she stated she would still see her but it would have to be after the patients who had already arrived on time for their appointments. Patient was presented with the option to stay and wait or reschedule and that it was up to her. Patient got frustrated and asked how long of a wait it would be. I did explain to patient that there were two other patients left on the schedule for the day and it depended on how fast or slow those appointments went. Patient then called ride and told them to come back and get her. I did inform patient that the policy is there is a 15 minute odalys period and after that she is subject to rescheduling but Shira did say she would see her just after the other patients. Patient still insisted on rescheduling. Patients new appointment is on 05/06 which was the first available at the [place] office. documented in this encounter [facility] 03-17-2022 History of Present illness Narrative KARINA Garcia is a 51 year old female here today for Hepatitis C (Labs 03/12/22 Fibroscan 12/18/21 in [place].) She is known c/o- Hep C infection (genotype- 1a), recently diagnosed recently. She is going to start treatment with EPCLUSA. She is c/o- reflux symptoms. She had EGD in 2014 which was normal. Current Outpatient Medications Medication Sig ibuprofen (MOTRIN) 800 mg tablet Take 1 tablet by mouth every 8 hours as needed for pain. Take with food. sofosbuvir-velpatasvir 400-100 mg Take one tablet by mouth, with or without food, once daily same time of day Cholecalciferol, Vitamin D3, (VITAMIN D) 25 mcg (1,000 unit) cap Take 1 capsule by mouth once daily. thiamine (VITAMIN B1) 100 mg tablet Take 1 tablet by mouth once daily. mirabegron (MYRBETRIQ) 25 mg Tb24 Take 1 tablet by mouth once daily. atorvastatin (LIPITOR) 40 mg tablet Take 1 tablet by mouth daily at bedtime. pregabalin (LYRICA) 150 mg capsule Take one pill three times per day VITAMIN C 500 mg tablet baclofen (LIORESAL) 10 mg tablet TAKE 1 TABLET BY MOUTH TWICE A DAY oxybutynin ER (DITROPAN XL) 10 mg 24 hr tablet Take 1 tablet by mouth once daily. tiotropium bromide (SPIRIVA RESPIMAT) 2.5 mcg/actuation inhaler Inhale 2 Puffs as instructed once daily. lisinopril (ZESTRIL, PRINIVIL) 20 mg tablet Take 1 tablet by mouth once daily. albuterol (PROVENTIL) 2.5 mg /3 mL (0.083 %) nebulizer solution Use 3 mL via nebulizer every 4 hours as needed for wheezing/shortness of breath. Use over 5-15minutes. budesonide-formoterol (SYMBICORT) 160-4.5 mcg/actuation inhaler Inhale 2 Puffs as instructed twice daily. ferrous sulfate 325 mg (65 mg iron) tablet Take 1 tablet by mouth twice daily. albuterol HFA (VENTOLIN HFA) 90 mcg/actuation inhaler Inhale 2 Puffs as instructed every 4 hours as needed for wheezing/shortness of breath. buPROPion SR (ZYBAN SR; WELLBUTRIN SR) 150 mg 12 hr tablet Nebulizers Use as directed. lurasidone (LATUDA) 80 mg tablet Take 80 mg by mouth once daily. with meals take with 350 calories. levothyroxine (SYNTHROID) 25 mcg tablet Take 25 mcg by mouth daily before breakfast. FLUoxetine (PROZAC) 20 mg capsule Take 20 mg by mouth once daily. COMPOUNDED PRESCRIPTION Standard size Rollator Walker #1 Dx Large Blood Pressure Cuff #1 M51.36 DDD (degenerative disc disease), lumbar (primary encounter diagnosis) I10 Essential hypertension benztropine (COGENTIN) 0.5 mg tablet Take 0.5 mg by mouth daily at bedtime. COMPOUNDED PRESCRIPTION ADJUSTABLE CANE DX M51.36 No current facility-administered medications for this visit. ALLERGIES Allergen Reactions Fentanyl Other: See Comments PATCH ONLY. Respiratory distress due to rapid absorption. Chantix [Vareniclin* Intolerance hallucinations Social History Tobacco Use Smoking status: Every Day Packs/day: 0.75 Years: 32.00 Pack years: 24.00 Types: Cigarettes Smokeless tobacco: Never Tobacco comments: started smoking 12yr .5 to .75 of pack daily-in process of quitting as of 09/29/15 Substance Use Topics Alcohol use: Not Currently Drug use: Yes Types: Marijuana PAST MEDICAL HISTORY Diagnosis Date Alcohol abuse Anemia Back pain Blood dyscrasia Cervical spondylosis without myelopathy Cholecystitis 04/2020 DDD (degenerative disc disease), lumbar Depression with anxiety Drug use 08/15/2018 ecstacy Emphysema of lung (HCC) Encounter for support and coordination of transition of care 05/15/2020 HOSPITAL/ER FOLLOW UP Which facility: [facility] Dates of visit: 05/10-05/13/2020 Preadmission evaluation: ER with right-sided abdominal pain over 2-1/2 hours, 10 out of 10. Worse with coughing. States she vomited 20 times the day before, with episodes of diarrhea over the past 2 days. Had used Imodium which improved diarrhea. No known exposures to Covid. Also identified chest pain which started a Encounter for support and coordination of transition of care 05/02/2021 Hospital discharge summary: Date of admission 05/01/2021 Date of discharge: Facility: [facility] 05/01/2021 presented to the emergency room with acute alcohol intoxication, initial alcohol level 7-8. Acknowledges over the last 5 months drinking 15 packs a day at 8% alcohol (nataidan samaniego). Vital signs 96.6 F-78-18-111/73-98%. Appearance was no acute distress. WBC 7.9-Hgb 13.8-HCT 39 GERD (gastroesophageal reflux disease) Hyperglycemia Hypertension Lung abscess (HCC) saw Néstor Li and Dr. Zarate. Major depression Mild protein-calorie malnutrition (HCC) 08/26/2020 Obesity PE (pulmonary thromboembolism) (HCC) PTSD (post-traumatic stress disorder) Snoring Tobacco use disorder PAST SURGICAL HISTORY Procedure Laterality Date CARPAL TUNNEL Left 09/2015 COLONOSCOPY 11/27/2021 COLONOSCOPY FLX DX W/COLLJ SPEC WHEN PFRMD several years ago Colonoscopy COLONOSCOPY FLX DX W/COLLJ SPEC WHEN PFRMD 10/02/2014 Colonoscopy ESOPHAGOGASTRODUODENOSCOPY TRANSORAL DIAGNOSTIC 10/02/2014 EGD HEART CATHETERIZATION 10/30/2013 normal coronary arteries HYSTERECTOMY HX 2004 menorrhagia. JONAS/right oophorectomy. bowel adhesion HYSTERECTOMY HX 1989' LAPAROSCOPY SURG CHOLECYSTECTOMY 05/12/2020 NEUROPLASTY &/TRANSPOS MEDIAN NRV CARPAL TUNNE Right 11/21/2015 Carpal tunnel decomp OVARIAN CYSTECTOMY UNI/BI 1996 left oophorectomy and 20# cyst PAST SURGICAL HISTORY OF 07/2012 Lumbar discectomy L3-L4 PAST SURGICAL HISTORY OF 09/2012 repeat lumbar surgery SKIN GRAFT,SCALP,ARMS,LEGS 12/2013 bilateral posterior thigh autograft, fell in firepit TONSILLECTOMY & ADENOIDECTOMY <AGE 10 1977 FAMILY HISTORY Problem Relation Age of Onset Hypertension Mother Cancer Mother lung, metastatic Heart Father Heart Maternal Grandmother Stroke Maternal Grandmother Colon Cancer No Family History REVIEW OF SYSTEMS Review of Systems All other systems reviewed and are negative. I have confirmed and edited as necessary, the PFSH and ROS obtained by others. Hemoglobin (g/dL) Date Value 03/09/2022 13.1 11/05/2019 15.2 Hematocrit (%) Date Value 03/09/2022 40.5 11/05/2019 45.1 WBC (k/uL) Date Value 03/09/2022 7.38 11/05/2019 9.30 Platelet Count (k/uL) Date Value 03/09/2022 241 11/05/2019 298 CMP: Glucose 72 03/09/2022 BUN 9 03/09/2022 Creatinine 0.57 03/09/2022 Sodium 139 03/09/2022 Potassium 4.4 03/09/2022 Chloride 104 03/09/2022 CO2 27 03/09/2022 Protein, Total 7.1 03/09/2022 Albumin 3.6 03/09/2022 Calcium 9.2 03/09/2022 Alkaline Phosphatase 70 03/09/2022 Bilirubin, Total 0.4 03/09/2022 AST 22 03/09/2022 ALT 17 03/09/2022 PHYSICAL EXAM Pulse 60 Ht 5' 9 (1.75m) Wt 164 lb (74.4kg) BMI 24.21 kg/(m^2). General appearance: Well appearing, alert, in no acute distress, well-hydrated, well nourished. Skin: Skin color, texture, turgor normal Head: Normocephalic, no masses, lesions, tenderness or abnormalities Eyes: Anicteric sclera. Pupils are equally round. Oropharynx: Lips, mucosa, and tongue normal, teeth and gums normal, oropharynx normal Neck: Supple, no adenopathy; thyroid symmetric, normal size, no bruits Lungs: Lungs clear to auscultation. No wheezing, rhonchi, rales. Heart: RRR without murmur, gallop, or rubs. No ectopy Abdomen: Normal abdominal exam, Abdomen soft, non-tender. Bowel sounds normal. No masses, organomegaly Extremities: No deformities, edema, skin discoloration, clubbing or cyanosis. Good capillary refill. ASSESSMENT: 51 year old female patient who is in our clinic with Hep C infection. She will be starting EPCLUSA today. She is known c/o- GERD. She is not taking any PPI for last 4 months PLAN: Advised to start on omeprazole. Follow reflux precautions. RTC- 4 months Sarahi Whitlock MD DATE: 03/17/22 TIME: 11:11 AM documented in this encounter [facility] 03-15-2022 Miscellaneous Notes Pharmacy calls in requesting the following refill(s): Requested Prescriptions Pending Prescriptions Disp Refills ibuprofen (MOTRIN) 800 mg tablet 30 tablet 1 Sig: Take 1 tablet by mouth every 8 hours as needed for pain. Take with food. documented in this encounter [facility] 03-11-2022 Miscellaneous Notes Patient approved for Hep C treatment through medicaid, will ship from [facility]. Patient to call when receives medication in hand to review treatment protocol and follow up labs. Requested Prescriptions Pending Prescriptions Disp Refills sofosbuvir-velpatasvir 400-100 mg 28 tablet 2 Sig: Take one tablet by mouth, with or without food, once daily same time of day Bharti Sherman CMA documented in this encounter [facility] 02-26-2022 Miscellaneous Notes Patient has been identified by name and date of : Yes Pharmacy phones for refill(s): Requested Prescriptions Pending Prescriptions Disp Refills Cholecalciferol, Vitamin D3, (VITAMIN D) 25 mcg (1,000 unit) cap 90 capsule 1 Sig: Take 1 capsule by mouth once daily. Date of last office visit with pcp: 02-25-22. Next appt: 04-01-22 Last 2 Encounter Wt Readings: Date: Wt: 02/25/2022 74.4 kg (164 lb) 02/11/2022 75.3 kg (166 lb) Previous labs/tests for medication: Blood Pressure: BUN (mg/dL) Date Value 11/12/2021 12 11/05/2019 13 Sodium (mmol/L) Date Value 11/12/2021 139 11/05/2019 137 Last 1 Encounter BP Readings: Date: BP: 02/25/2022 110/72 Liver Function: ALT (U/L) Date Value 11/25/2021 16 11/05/2019 59 AST (U/L) Date Value 11/12/2021 23 11/05/2019 58 Please advise. Thank you. Jaimee Foster RN documented in this encounter [facility] 02-25-2022 History of Present illness Narrative 51 year old female with c/o low BP, dizziness which start Tuesday. 17 minutes late for appointment. 02/24/2022 transforaminal injection L5-S1 bilateral Dr. Troy. Was dizzy with low BP but had procedure anyway. Stumbled in their office but didn't pass out. Was NPO after midnight. Sent from their office to the emergency department 02/24/2022 arrived at [facility] emergency department with complaint of hypertension, lightheadedness if she stands up quickly, twitches all over her body at times. Vital signs 90 7.9F- Except RBC slightly low at 3.88, hematocrit slightly low 36.8 neutrophil percent 90.7 with absolute neutrophil normal 6.5, absolute lymphs low at 0.4. Sodium low 131, potassium 5 4, BUN 41, creatinine 1.7 both high. GFR 34. He is feeling better when she left ER. Recommended she stop Lasix. Concerned about weight loss Only eats once or twice a day Concerned about memory impairment: feels difficult to follow conversations at times. Asking again about hep C treatment: no response to staff message to Dr. Blevins sent on last visit. Multiple other concerns we couldn't address in remaining time HISTORIES FAMILY HISTORY Problem Relation Age of Onset Hypertension Mother Cancer Mother lung, metastatic Heart Father Heart Maternal Grandmother Stroke Maternal Grandmother Colon Cancer No Family History PAST MEDICAL HISTORY Diagnosis Date Alcohol abuse Anemia Back pain Blood dyscrasia Cervical spondylosis without myelopathy Cholecystitis 04/2020 DDD (degenerative disc disease), lumbar Depression with anxiety Drug use 08/15/2018 ecstacy Emphysema of lung (HCC) Encounter for support and coordination of transition of care 05/15/2020 HOSPITAL/ER FOLLOW UP Which facility: [facility] Dates of visit: 05/10-05/13/2020 Preadmission evaluation: ER with right-sided abdominal pain over 2-1/2 hours, 10 out of 10. Worse with coughing. States she vomited 20 times the day before, with episodes of diarrhea over the past 2 days. Had used Imodium which improved diarrhea. No known exposures to Covid. Also identified chest pain which started a Encounter for support and coordination of transition of care 05/02/2021 Hospital discharge summary: Date of admission 05/01/2021 Date of discharge: Facility: [facility] 05/01/2021 presented to the emergency room with acute alcohol intoxication, initial alcohol level 7-8. Acknowledges over the last 5 months drinking 15 packs a day at 8% alcohol (natty daddy). Vital signs 96.6 F-78-18-111/73-98%. Appearance was no acute distress. WBC 7.9-Hgb 13.8-HCT 39 GERD (gastroesophageal reflux disease) Hyperglycemia Hypertension Lung abscess (HCC) saw Néstor Li and Dr. Zarate. Major depression Mild protein-calorie malnutrition (HCC) 08/26/2020 Obesity PE (pulmonary thromboembolism) ([facility]) PTSD (post-traumatic stress disorder) Snoring Tobacco use disorder PAST SURGICAL HISTORY Procedure Laterality Date CARPAL TUNNEL Left 09/2015 COLONOSCOPY 11/27/2021 COLONOSCOPY FLX DX W/COLLJ SPEC WHEN PFRMD several years ago Colonoscopy COLONOSCOPY FLX DX W/COLLJ SPEC WHEN PFRMD 10/02/2014 Colonoscopy ESOPHAGOGASTRODUODENOSCOPY TRANSORAL DIAGNOSTIC 10/02/2014 EGD HEART CATHETERIZATION 10/30/2013 normal coronary arteries HYSTERECTOMY HX 2004 menorrhagia. JONAS/right oophorectomy. bowel adhesion HYSTERECTOMY HX 1989's LAPAROSCOPY SURG CHOLECYSTECTOMY 05/12/2020 NEUROPLASTY &/TRANSPOS MEDIAN NRV CARPAL TUNNE Right 11/21/2015 Carpal tunnel decomp OVARIAN CYSTECTOMY UNI/BI 1996 left oophorectomy and 20# cyst PAST SURGICAL HISTORY OF 07/2012 Lumbar discectomy L3-L4 PAST SURGICAL HISTORY OF 09/2012 repeat lumbar surgery SKIN GRAFT,SCALP,ARMS,LEGS 12/2013 bilateral posterior thigh autograft, fell in firepit TONSILLECTOMY & ADENOIDECTOMY <AGE 10 1977 Social History Tobacco Use Smoking status: Every Day Packs/day: 0.75 Years: 32.00 Pack years: 24.00 Types: Cigarettes Smokeless tobacco: Never Tobacco comments: started smoking 12yr .5 to .75 of pack daily-in process of quitting as of 09/29/15 Substance Use Topics Alcohol use: Not Currently Drug use: Yes Types: Marijuana ACTIVE PROBLEM LIST Back Pain Ddd (Degenerative Disc Disease), Lumbar Emphysema of Lung (Hcc) Tobacco Use Disorder Hypertension Gerd (Gastroesophageal Reflux Disease) Carpal Tunnel Syndrome, Bilateral Obesity Anemia Radiculopathy, Lumbar Region Alcohol Abuse Chronic Midline Low Back Pain With Left-Sided Sciatica Pe (Pulmonary Thromboembolism) (Hcc) Hyperglycemia Stasis Edema Right Lumbar Radiculopathy Obesity, Class III, BMI >= 40 (morbid obesity) E66.01 Delusional Disorder (Hcc) Chronic Low Back Pain With Sciatica Abnormal Echocardiogram Chronic Left-Sided Low Back Pain With Sciatica Copd (Chronic Obstructive Pulmonary Disease) With Chronic Bronchitis (Hcc) Positive Urine Drug Screen Lumbar Spondylosis Cervical Spondylosis Without Myelopathy Other Chest Pain Stress Incontinence Chronic Active Hepatitis C (Hcc) History of Colonic Polyps Traumatic Closed Nondisp Torus Fracture of Distal Radial Metaphysis, Right, With Routine Healing, Subsequent Encounter Bacterial Vaginosis Spinal Stenosis, Lumbar Region, Without Neurogenic Claudication Current Outpatient Medications Medication Sig Dispense Refill mirabegron (MYRBETRIQ) 25 mg Tb24 Take 1 tablet by mouth once daily. 30 tablet 5 potassium chloride (K-TAB) 10 mEq tablet Take 1 tablet by mouth once daily. 30 tablet 5 atorvastatin (LIPITOR) 40 mg tablet Take 1 tablet by mouth daily at bedtime. 90 tablet 1 pregabalin (LYRICA) 150 mg capsule Take one pill three times per day 90 capsule 5 VITAMIN C 500 mg tablet L. acidophilus-L. rhamnosus 15 billion cell cap Take 1 capsule by mouth once daily. Keep in the refrigerator. 30 capsule 11 baclofen (LIORESAL) 10 mg tablet TAKE 1 TABLET BY MOUTH TWICE A DAY 60 tablet 2 oxybutynin ER (DITROPAN XL) 10 mg 24 hr tablet Take 1 tablet by mouth once daily. 90 tablet 3 tiotropium bromide (SPIRIVA RESPIMAT) 2.5 mcg/actuation inhaler Inhale 2 Puffs as instructed once daily. 1 Each 5 peg 3350-Electrolytes (GOLYTELY) 236-22.74-6.74 -5.86 gram suspension Refer to printed prep instructions from your provider. 4000 mL 0 omeprazole (PRILOSEC) 40 mg capsule Take 1 capsule by mouth twice daily for 14 days. 28 capsule 0 lisinopril (ZESTRIL, PRINIVIL) 20 mg tablet Take 1 tablet by mouth once daily. 30 tablet 5 furosemide (LASIX) 40 mg tablet Take 1 tablet by mouth once daily. 30 tablet 5 albuterol (PROVENTIL) 2.5 mg /3 mL (0.083 %) nebulizer solution Use 3 mL via nebulizer every 4 hours as needed for wheezing/shortness of breath. Use over 5-15minutes. 120 mL 5 budesonide-formoterol (SYMBICORT) 160-4.5 mcg/actuation inhaler Inhale 2 Puffs as instructed twice daily. 1 Each 5 Cholecalciferol, Vitamin D3, (VITAMIN D) 25 mcg (1,000 unit) cap Take 1 capsule by mouth once daily. 90 capsule 1 famotidine (PEPCID) 20 mg tablet Take 1 tablet by mouth daily at bedtime. 28 tablet 11 ferrous sulfate 325 mg (65 mg iron) tablet Take 1 tablet by mouth twice daily. 56 tablet 11 albuterol HFA (VENTOLIN HFA) 90 mcg/actuation inhaler Inhale 2 Puffs as instructed every 4 hours as needed for wheezing/shortness of breath. 1 Inhaler 11 ibuprofen (MOTRIN) 800 mg tablet Take 1 tablet by mouth every 8 hours as needed for pain. Take with food. 30 tablet 1 buPROPion SR (ZYBAN SR; WELLBUTRIN SR) 150 mg 12 hr tablet Nebulizers Use as directed. 1 Each 0 lurasidone (LATUDA) 80 mg tablet Take 80 mg by mouth once daily. with meals take with 350 calories. levothyroxine (SYNTHROID) 25 mcg tablet Take 25 mcg by mouth daily before breakfast. FLUoxetine (PROZAC) 20 mg capsule Take 20 mg by mouth once daily. thiamine (VITAMIN B1) 100 mg tablet Take 1 tablet by mouth once daily. 30 tablet 5 COMPOUNDED PRESCRIPTION Standard size Rollator Walker #1 Dx Large Blood Pressure Cuff #1 M51.36 DDD (degenerative disc disease), lumbar (primary encounter diagnosis) I10 Essential hypertension 1 Each 0 benztropine (COGENTIN) 0.5 mg tablet Take 0.5 mg by mouth daily at bedtime. COMPOUNDED PRESCRIPTION ADJUSTABLE CANE DX M51.36 1 Device 0 No current facility-administered medications for this visit. HEPATITIS B(1 of 3 - 3-dose series) Never done HEPATITIS A(1 of 2 - Risk 2-dose series) Never done SPIROMETRY Never done ALPHA-1 ANTITRYPSIN DEFICIENCY SCREENING Never done LUNG CANCER SCREENING Never done SHINGRIX VACCINE(2 of 2) due on 01/07/2022 INFLUENZA(1) due on 02/18/2022 EXAM: BP 110/72 Pulse 90 Temp 37 C (98.6 F) (Tympanic) Resp 16 Wt 74.4 kg (164 lb) SpO2 96% BMI 24.22 kg/m Pleasant adult woman in no acute distress. Alert and oriented all spheres. Normal affect and cognition. Speech is slightly slurred as it has been. No deficits to learning or comprehension. Hair is lush. Skin has turgor consistent with age and medical hx. Skin warm, dry, pink to lips and nailbeds. Normal turgor. Respirations regular and unlabored. HEENT: NCAT. No scleral icterus or conjunctival injection. TM's clear. Nose and oropharynx free from injection or lesion. Oral membranes moist and pink. No cervical lymph nodes. Thyroid non-tender, no masses, or enlargement. Carotids pulses 2+/4+ without bruits. Neck veins flat upright. Chest is normal shape. Lungs are clear to all coreas with good air exchange through out. HRRR without murmur or gallop. No lifts, heaves, or rubs. Extrem: no clubbing or cyanosis. Edema: none. Extremities are warm and pink with prompt capillary refill. Neuro: PERRLA. EOMI. No facial droop, CN 212 grossly intact. Motor full upper and lower symmetric without disparity. Sensory intact distally to light touch. DTR's 0-1/4+ symmetric biceps, triceps, brachioradialis, knee jerk, Achilles. Plantars down-going bilaterally. Cerebellar intact finger to nose, heel to ulloa. Romberg is positive for slight stumbling but on rechecks self corrects. She does have a slightly wide-based gait but walks without assistance. ASSESSMENT/PLAN: 1. Dehydration - ICD9: 276.51, ICD10: E86.0 (primary diagnosis) Push fluids with water, non-caffeinated and non-alcoholic beverages. - METABOLIC PNL - COMP METABOLIC PANEL - CBC + DIFF 2. Postural dizziness with near syncope - ICD9: 780.4, 780.2, ICD10: R42, R55 At risk for falls, strongly encourage patient to use caution - BASIC METABOLIC PNL - COMP METABOLIC PANEL - TSH BLD - CBC + DIFF 3. Alcohol abuse - ICD9: 305.00, ICD10: F10.10 Identifies sobriety maintained - COMP METABOLIC PANEL - CBC + DIFF 4. Memory impairment - ICD9: 780.93, ICD10: R41.3 Not demonstrated in interview today, patient identifies she cannot remember details but with small prompting she does. Continues to manage her own care including finances, bill paying, appointments, driving, relationships. We discussed complications of alcohol use and my suspicion that these are late effects of her history. Patient is not open to this idea despite careful discussion. Will refer to neurology per patient request - CONSULT TO NEUROLOGY - THIAMINE HCL (VITAMIN B1) 100 MG TABLET - SYPHILIS TOTAL W/REFLEX - HEAVY METALS SCRN BL - LYME AB LATE >30 DAYS SYMPTOMS - MRI BRAIN WO IVCON - COMP METABOLIC PANEL - TSH BLD - CBC + DIFF 5. Chronic hepatitis C without hepatic coma (HCC) - ICD9: 070.54, ICD10: B18.2 Received no reply to staff message to electric mule operator Dr. Josué Blevins: We will have appointment scheduled on discharge today. - BASIC METABOLIC PNL - CONSULT TO NEUROLOGY - THIAMINE HCL (VITAMIN B1) 100 MG TABLET - COMP METABOLIC PANEL - CBC + DIFF 6. Alcohol abuse, in remission - ICD9: 305.03, ICD10: F10.11 - CONSULT TO NEUROLOGY - THIAMINE HCL (VITAMIN B1) 100 MG TABLET - COMP METABOLIC PANEL - CBC + DIFF 7. Brown-colored urine - ICD9: 791.9, ICD10: R82.998 - UA DIP, URINE (POC) - URINALYSIS, WITH MICROSCOPIC - CBC + DIFF 8. Iron deficiency anemia, unspecified iron deficiency anemia type - ICD9: 280.9, ICD10: D50.9 Patient wishes to stop iron, will recheck numbers. - IRON + TIBC - FERRITIN BLD - CBC + DIFF 9. Cognitive impairment, mild, so stated - ICD9: 331.83, ICD10: G31.84 There is evidence of mild forgetfulness, word searching, mildly slurred speech which I do not think is significantly changed however patient does have difficulty with balance and has fallen and is prone to falls, mild ataxia which she self corrects. - SYPHILIS TOTAL W/REFLEX - HEAVY METALS SCRN BL - LYME AB LATE >30 DAYS SYMPTOMS - MRI BRAIN WO IVCON - COMP METABOLIC PANEL - TSH BLD - CBC + DIFF 10. Slurred speech - ICD9: 784.59, ICD10: R47.81 - SYPHILIS TOTAL W/REFLEX - HEAVY METALS SCRN BL - LYME AB LATE >30 DAYS SYMPTOMS - MRI BRAIN WO IVCON - COMP METABOLIC PANEL - TSH BLD - CBC + DIFF Jaimee Palomares PA-C documented in this encounter [facility] 02-24-2022 Miscellaneous Notes Notified pt of message below. Left appt as scheduled with Faustino at current time. Will route to Faustino to notify him of what's going on. Liliana London Ma I would go today to er Patient calling to say she had spinal injection done at [facility] today and her blood pressure was low throughout the procedure. 80's/60's-70's. She was advised to contact her PCP. She says she has been having episodes of dizziness with shakiness x 5 days. She reports she fell twice over the weekend due to loss of balance. She states she did not go to the ER because she has had this in the past. She does not check her BP at home. She takes Lisinopril 20 mg and Lasix 40 mg daily. She took them both this morning. Scheduled appointment with Faustino tomorrow 02/25. She is asking if she needs to go to the ER today? Laina Orellana RN documented in this encounter [facility] 02-24-2022 Nurse Note Patient advised to notify her PCP of blood pressure. Patient states she has not taken her bp at home, but at times feels dizzy and wonders if it is from low bp. Patient's bp currently 87/61 after food/fluids. Patient denies dizziness, shortness of breath, or chest pain. Patient's blood pressure ranging from 72/55 to 89/74. Patient denies dizziness, shortness of breath or chest pain. PO fluids offered and taken. Patient offered and is eating crackers. documented in this encounter [facility] 02-24-2022 Miscellaneous Notes OPERATIVE/PROCEDURE REPORT LOG ID: [id number] SURGERY/PROCEDURE DATE: 02/24/2022 INCISION/PROCEDURE START TIME: 10:05 AM INCISION CLOSE/PROCEDURE END TIME: 10:19 AM SURGEON(S)/PROCEDURALIST(S) AND TRESTLE MAINTERNANCE LABORER(S): Surgeon(s) and Role: * Deloris Troy MD - Primary No Additional Staff SURGERY/PROCEDURE(S): Transforaminal Epidural Steroid Injection bilateral L5-S1 Injectate: A total of 6cc, consisting of 1cc of Dexamethasone (10mg/cc) the remainder consisting of Normal Saline An additional 5cc of 1% Lidocaine was used for local anesthesia of the soft tissue and at the targeted location. ANESTHESIA: Local SURGERY/PROCEDURE DETAILS: Procedure: The patient was prepped and draped in a sterile fashion in the prone position after informed consent was signed and all patient questions were answered including the risks, benefits, alternative treatment options, and prognosis. The risks are as mentioned above, with the exception of Pneumothorax. The above-mentioned neural foramen were sequentially injected using the following technique: The C-arm was positioned so that an oblique view of the neural foramen as noted above was visualized. The soft tissues overlying this structure were infiltrated with 2-3 cc. of 1%Lidocaine without Epinephrine. A 22 gauge, 5 inch spinal needle was inserted toward the target using a trajectory view along the fluoroscope beam. Under AP and lateral visualization, the needle was advanced, so it did not puncture dura. Biplanar projections were used to confirm position. Aspiration was confirmed to be negative for CSF and/or blood. A 1-2 cc volume of Omnipaque 300 contrast was injected at this level. The contrast was observed to flow epidural (under the pedicle). Attention was then turned to the second level mentioned above. The C-arm was positioned so that an oblique view of the neural foramen as noted above was visualized. The soft tissues overlying this structure were infiltrated with 2-3 cc. of 1%Lidocaine without Epinephrine. The same length and gauge needle mentioned above was inserted toward the target using a trajectory view along the fluoroscope beam. Under AP and lateral visualization, the needle was advanced, so it did not puncture dura. Biplanar projections were used to confirm position. Aspiration was confirmed to be negative for CSF and/or blood. A 1-2 cc volume of Omnipaque 300 contrast was injected at this level. The contrast was observed to flow epidural (under the pedicle). PRE-OP/PRE-PROCEDURE DIAGNOSIS: Lumbar Stenosis with radiculopathy POST-OP/POST-PROCEDURE DIAGNOSIS: Same as Preop ESTIMATED BLOOD LOSS: 0 ml SPECIMENS: None IMPLANTABLE DEVICES: None DRAINS: None COMPLICATIONS: None PARTICIPATION IN SURGERY/PROCEDURE: I/primary surgeon/proceduralist performed the entire procedure. SIGNATURE: Deloris Troy MD PATIENT NAME: Mariluz Garcia DATE: February 24, 2022 TIME: 10:21 AM documented in this encounter [facility] 02-24-2022 History and physical note UPDATED HISTORY AND PHYSICAL EXAMINATION SERVICE DATE: 02/24/2022 SERVICE TIME: 9:46 AM PHYSICAL EXAM MUST BE COMPLETED ON ADMISSION The History and Physical (completed in the past 30 days) has been reviewed and the patient has been examined. The contents accurately reflect the patient's condition with the following additions or revisions since the H&P was completed. Examination indicates no changes. LUNGS: Lungs clear to auscultation, Good diaphragmatic excursion CARDIAC: Normal S1 and S2; no rubs, murmurs, or gallops Provisional Diagnosis/Treatment Plan: Procedure(s) (LRB): INJECTION ANESTHETIC AGENT/STEROID TRANSFORAMINAL EPIDURAL W/ IMAGING GUIDANCE LUMBAR BILATERAL (Bilateral) Transforaminal Epidural Steroid Injection bilateral L5-S1 This H&P can be found in the Electronic Medical Record dated 02/03/2022. SIGNATURE: Deloris Troy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 joint or sacroiliac joint. The nerve branches from the facet joints are called the medial branches and the nerve branches from the sacroiliac joints are called the lateral branches. Each facet joint receives input from the two medial branches and each sacroiliac joint receives input from four lateral branches. Prior to performing a radiofrequency procedure, an injection of short-acting anesthetic (numbing medication) is injected to achieve short-term pain relief. If significant short-term pain relief is seen with the anesthetic, then a patient may be a candidate for the radiofrequency denervation procedure. Who should get radiofrequency denervation? The procedures are typically ordered for patients who have gotten significant short-term pain relief from facet joint medial branch injections and sacroiliac joint injections but have failed to get long-term improvement from these injections. How long does the injection take? Typically the radiofrequency ablation takes about one hour to perform, but expect to spend 15-20 minutes at our facility due to preparation time before the procedure and evaluation after the procedure. What are the risks of radiofrequency ablation? With all injections there is a risk of infection, bleeding, temporary increase in pain and injury to the structures along the course of the needle or injury to other nerve branches by the radiofrequency probe. By using sterile equipment and technique we minimize the Risk of infection. The risk of bleeding is minimized by discontinuation of blood thinners (this typically requires approval from the prescribing doctor) and non-steroidal anti-inflammatory medications (except Celebrex). By using X-ray guidance (fluoroscopy) we minimize the risk of injury to the structure along the course of the needle. The sensory and motor stimulation reduce the risk of injury to other nerves. Who should NOT have this injection? If you have an active infection, poorly controlled hypertension, diabetes, congestive heart failure or are unable to stop taking blood thinners, you may not be a candidate for these types of injections. Abi Davey PA-C ([place]) [facility] documented in this encounter [facility] 01-29-2022 Miscellaneous Notes Patient has been identified by name and date of : Yes Pharmacy phones for refill(s): Requested Prescriptions Pending Prescriptions Disp Refills potassium chloride (K-TAB) 10 mEq tablet 30 tablet 5 Sig: Take 1 tablet by mouth once daily. atorvastatin (LIPITOR) 40 mg tablet 90 tablet 1 Sig: Take 1 tablet by mouth daily at bedtime. pregabalin (LYRICA) 150 mg capsule 90 capsule 5 Sig: Take one pill three times per day Date of last office visit in primary care: 07/23/2021, no future appt scheduled Last 2 Encounter Wt Readings: Date: Wt: 01/18/2022 80.3 kg (177 lb) 12/09/2021 83.9 kg (185 lb) Previous labs/tests for medication: Blood Pressure: BUN (mg/dL) Date Value 11/12/2021 12 11/05/2019 13 Sodium (mmol/L) Date Value 11/12/2021 139 11/05/2019 137 Last 1 Encounter BP Readings: Date: BP: 01/18/2022 112/78 Please advise. Thank you. Maribell Baltazar LPN documented in this encounter [facility] 01-29-2022 Miscellaneous Notes Patient call and LVM stated she missed her appt on 01/[address] Troy and needs to reschedule. I have attempted to contact this patient by phone, Left brief message on cell voicemail stating to call back to reschedule. Cris Lopez Relations Liaison to Dr. Roy, Dr. Palma, Workers Compensation [facility] P: [id number] / F: [phone] / [email or web address] documented in this encounter [facility] 01-27-2022 Instructions Abi Davey PA-C - 01/27/2022 8:08 AM EDT [facility] What is it? Facet joint and sacroiliac joint denervation (also called rhizotomy, ablation, neurotomy or neurolysis) uses radiofrequency energy to temporarily interrupt or destroy the nerve that carries pain signals from the facet (zygapophyseal) joint or sacroiliac joint. The nerve branches from the facet joints are called the medial branches and the nerve branches from the sacroiliac joints are called the lateral branches. Each facet joint receives input from the two medial branches and each sacroiliac joint receives input from four lateral branches. Prior to performing a radiofrequency procedure, an injection of short-acting anesthetic (numbing medication) is injected to achieve short-term pain relief. If significant short-term pain relief is seen with the anesthetic, then a patient may be a candidate for the radiofrequency denervation procedure. Who should get radiofrequency denervation? The procedures are typically ordered for patients who have gotten significant short-term pain relief from facet joint medial branch injections and sacroiliac joint injections but have failed to get long-term improvement from these injections. How long does the injection take? Typically the radiofrequency ablation takes about one hour to perform, but expect to spend 15-20 minutes at our facility due to preparation time before the procedure and evaluation after the procedure. What are the risks of radiofrequency ablation? With all injections there is a risk of infection, bleeding, temporary increase in pain and injury to the structures along the course of the needle or injury to other nerve branches by the radiofrequency probe. By using sterile equipment and technique we minimize the Risk of infection. The risk of bleeding is minimized by discontinuation of blood thinners (this typically requires approval from the prescribing doctor) and non-steroidal anti-inflammatory medications (except Celebrex). By using X-ray guidance (fluoroscopy) we minimize the risk of injury to the structure along the course of the needle. The sensory and motor stimulation reduce the risk of injury to other nerves. Who should NOT have this injection? If you have an active infection, poorly controlled hypertension, diabetes, congestive heart failure or are unable to stop taking blood thinners, you may not be a candidate for these types of injections. documented in this encounter [facility] 01-27-2022 History of Present illness Narrative AMBULATORY TELEPHONE VISIT Mariluz Garcia 1970 has consented to this telephone encounter. Persons Present: patient Chief Complaint/Reason: follow up MBB HPI: 51 year old female with significant past medical history for low back surgery x 2, prior THC usage and prior alcohol abuse, COPD, GERD, Prior PE, Obesity, who presents with complaint(s) of recurrent axial low back pain, radicular symptoms into bilateral posterior thighs, suggestive of spinal stenosis. Interval History: Since last encounter, Mariluz Garcia reports that the chronic problem(s) listed above are Better. Pain score 6/10. Patient underwent MBB Bilateral C4-5; C5-6; C6-7 on 01/20/[address] Troy. Patient reports 80% relief from the injection. Symptom relief lasted 5 hours. During this time the patient was able to move, walk and participate in their ADL's with less pain and difficulty. Patient denies any adverse side effects such as nausea, vomiting, hives, fever, injection site redness/induration, headache, or new radicular symptoms From Previous visit 12/09/21 (virtual): She was last seen in August 2021 for a lumbar epidural steroid injection with Dr. Duong and did not return for follow-up. She presents today with increased back pain. She was doing over 50% better until a few weeks ago. She has been moving and had her teeth pulled. She is wondering about another injection for the back pain and bilateral leg pain. The neck is also tender and she is wondering about this as well. She is having great difficulty performing her ADLs and maintaining her overall daily chores. She is wondering about a home health aide Review of Systems: Reviewed on today's date. Pertinent Positives: MSK - pain in the region being treated Neuro: No weakness or numbness in the region being treated Skin: Negative (No itching) Eyes: Negative (No blurred or double vision) Respiratory: Negative (No Cough, [id number]-dc-stqwkw, Dyspnea on exertion, wheezing) Cardiovascular: Negative (No Chest Pain, Tightness, Pressure, Palpitations) Gastrointestinal: Negative (No Abdominal pain, Nausea, Vomiting, Constipation, Diarrhea) Genitourinary: Negative (No dysuria) Hematologic: Negative (No bleeding, bruising) Endocrine: Negative (No hot/cold intolerance) Psychiatric: Negative (No depression, anxiety or suicidal ideation) Data Reviewed: None new to review Current Medications, Past Medical History, Past Surgical History, Family History & Social History: Reviewed on today's date. Diagnoses: (M47.812) Cervical spondylosis without myelopathy (primary encounter diagnosis) Assessment and Plan: Keep in person follow up appointment as scheduled Keep second round of MBBs Patient states no refills are need at this time Interventional Procedure(s): MBB Bilateral C4-5; C5-6; C6-7 under fluoroscopic guidance The risks, benefits, alternative treatment options and prognosis of the procedure were discussed and all of the patient's questions/concerns were addressed to the patient's satisfaction. The patient expressed understanding and gave verbal consent to proceed. Total Time Spent: 11 minutes Patient Instructions [facility] What is it? Facet joint and sacroiliac joint denervation (also called rhizotomy, ablation, neurotomy or neurolysis) uses radiofrequency energy to temporarily interrupt or destroy the nerve that carries pain signals from the facet (zygapophyseal) joint or sacroiliac joint. The nerve branches from the facet joints are called the medial branches and the nerve branches from the sacroiliac joints are called the lateral branches. Each facet joint receives input from the two medial branches and each sacroiliac joint receives input from four lateral branches. Prior to performing a radiofrequency procedure, an injection of short-acting anesthetic (numbing medication) is injected to achieve short-term pain relief. If significant short-term pain relief is seen with the anesthetic, then a patient may be a candidate for the radiofrequency denervation procedure. Who should get radiofrequency denervation? The procedures are typically ordered for patients who have gotten significant short-term pain relief from facet joint medial branch injections and sacroiliac joint injections but have failed to get long-term improvement from these injections. How long does the injection take? Typically the radiofrequency ablation takes about one hour to perform, but expect to spend 15-20 minutes at our facility due to preparation time before the procedure and evaluation after the procedure. What are the risks of radiofrequency ablation? With all injections there is a risk of infection, bleeding, temporary increase in pain and injury to the structures along the course of the needle or injury to other nerve branches by the radiofrequency probe. By using sterile equipment and technique we minimize the Risk of infection. The risk of bleeding is minimized by discontinuation of blood thinners (this typically requires approval from the prescribing doctor) and non-steroidal anti-inflammatory medications (except Celebrex). By using X-ray guidance (fluoroscopy) we minimize the risk of injury to the structure along the course of the needle. The sensory and motor stimulation reduce the risk of injury to other nerves. Who should NOT have this injection? If you have an active infection, poorly controlled hypertension, diabetes, congestive heart failure or are unable to stop taking blood thinners, you may not be a candidate for these types of injections. Abi Davey PA-C ([place]) [facility] documented in this encounter [facility] 01-18-2022 History of Present illness Narrative Mariluz Garcia is a 51 year old female who presents for vaginal discharge for 1 month(s). Vaginal discharge: large amount, foul smelling, thick, yellow and brown. Itching: No Dyspareunia: No Fever/chills: No Abdominal pain: No Bladder: urgency, incontinence Bowel: No blood in stool, pain with BM, tarry stool, persistent diarrhea or constipation Any new sexual partners or concern for STD exposure: No Are you currently taking any medications to treat vaginitis: No Do you use feminine sprays, douches or deodorants: No Past medical, surgical, social history, medications and allergies reviewed and updated. OBJECTIVE: BP 112/78 Wt 177 lb (80.3kg) GENERAL: Well developed, well nourished in no apparent distress PELVIC: external genitalia normal, normal Bartholin's glands, urethra, [place]'s glands, no vulvar lesions, good vaginal support, physiologic discharge present, normal appearing perineal body and perianal region, cervix surgically absent BIMANUAL: no adnexal masses, non-tender and uterus surgically absent. RECTOVAGINAL: deferred. ASSESSMENT/PLAN: 1. Vaginal discharge - ICD9: 623.5, ICD10: N89.8 - GC/CHLAMYDIA DNA DET - ABBEY / TRICHOMONAS AMPLIFICATION - BACTERIAL VAGINOSIS AMPLIFICATION Nguyen Leavitt APRN.CNP Medical Decision Making: Problems: Moderate: New problem with uncertain prognosis Data: Unique test(s) ordered: 3+ Risk: Low: Low risk from testing/treatment Medical Decision Making Level: 4 - Moderate documented in this encounter [facility] 01-04-2022 Miscellaneous Notes Please change her to in person with a provider. She has not been physically seen since august for a procedure. If she needs more norco she needs a NAOIC and uds Denice Gr APRN.ALYSSA I can call in 7 days of medication for her. We need to cancel her 01/06 epidural since she cannot have steroids within 2 months of a fracture. Her neck injections (Medial branch blocks) were also scheduled with steroids, so we will either need to cancel or perform without steroids. She can discuss with Denice at her virtual appointment tomorrow. PDMP reviewed, had 10 [place] on 01/01. Will write 28 [place] , must last a full 7 days. Deloris Troy III, [place], [place] Patient called and left a voicemail stating that she has fallen on Tuesday and broken her arm. She was sent home with medications and they are now gone. She can't sleep or eat because she is in so much pain and needs something to help. Please advise. Laura Pena documented in this encounter [facility] 01-04-2022 Miscellaneous Notes Called patient to inform her, mailed her the numbers for the other home health agencies per her request Please let the pt know Denice Gr APRN.SENIOR CONTRACTS ADMINISTRATOR Thank you for the referral of your patient to [facility]. At this time, we are unable to accommodate your patient s needs in a safe and timely fashion. In order to help your patient receive quality home care, we have included reputable agencies that service this area: [facility] or [phone]. OR [facility] Phone [email or web address] Please contact these agencies and they will work with your patient to arrange timely services. documented in this encounter [facility] 12-25-2021 Miscellaneous Notes I scanned fibroscan results from [facility] today for you to review. Emma Torres Fibroscan reviewed. F2S2 Bharti - can you check on the Hep C treatment status? Josué Blevins MD documented in this encounter [facility] 12-15-2021 Aura Ann MD - 12/15/2021 8:47 AM EDT It was great to see you today! You have urge and stress incontinence. Lets try a bladder relaxant and Kegel exercises. I want you to see Dorothy in 6 weeks to see how things stand. documented in this encounter [facility] 12-15-2021 History of Present illness Narrative Images from the original note were not included. [facility] NEW PATIENT ENCOUNTER HISTORY OF PRESENT ILLNESS: Mariluz Garcia is a 51 year old female who presents with urinary urgency and incontinence. Urge incontinence present for over a year. Nothing makes it better. Goes thru 4 pads/day. Nocturia 2-4x/night. Stream is weak at times. Also with stress incontinence. One pregancy - had to have at 3 months. No hematuria. No UTIs. Smokes 1 ppd. 45 years. Sees pain mgmt for back/neck issues. Patient Entered Questionnaires [employer]OM[employer] PROMIS Global Health Scale 07/22/2016 10/14/2016 07/23/2021 Physical Health Percentile 2 % 1 % 1 % Mental Health Percentile 0 % 1 % 2 % Percentiles provide an indication of how the patient's score ranks in relation to the general population. Higher percentile rankings indicate better function/quality of life. 50th percentile is the average of the general population and indicates half of respondents had a worse score. Review of Systems Constitutional: Negative. Eyes: Negative. Respiratory: Negative. Cardiovascular: Negative. Gastrointestinal: Negative. Endocrine: Negative. Genitourinary: Positive for urgency. Musculoskeletal: Negative. Skin: Negative. Allergic/Immunologic: Negative. Hematological: Negative. Psychiatric/Behavioral: Negative. LAB No results found for: PSA Creatinine Date Value Ref Range Status 11/12/2021 1.20 (H) 0.58 - 0.96 mg/dL Final No results found for this basename: uglucpoc,ubilipoc,uketonpoc,usgpo c,uhbpoc,uphpoc,upropoc,uuropoc,u nitpoc,uwbcpoc,ucolpoc,uclarpoc MEDICATIONS oxybutynin ER (DITROPAN XL) 10 mg 24 hr tablet, Take 1 tablet by mouth once daily. tiotropium bromide (SPIRIVA RESPIMAT) 2.5 mcg/actuation inhaler, Inhale 2 Puffs as instructed once daily. peg 3350-Electrolytes (GOLYTELY) 236-22.74-6.74 -5.86 gram suspension, Refer to printed prep instructions from your provider. omeprazole (PRILOSEC) 40 mg capsule, Take 1 capsule by mouth twice daily for 14 days. lisinopril (ZESTRIL, PRINIVIL) 20 mg tablet, Take 1 tablet by mouth once daily. furosemide (LASIX) 40 mg tablet, Take 1 tablet by mouth once daily. albuterol (PROVENTIL) 2.5 mg /3 mL (0.083 %) nebulizer solution, Use 3 mL via nebulizer every 4 hours as needed for wheezing/shortness of breath. Use over 5-15minutes. baclofen (LIORESAL) 10 mg tablet, Take 1 tablet by mouth twice daily. budesonide-formoterol (SYMBICORT) 160-4.5 mcg/actuation inhaler, Inhale 2 Puffs as instructed twice daily. Cholecalciferol, Vitamin D3, (VITAMIN D) 25 mcg (1,000 unit) cap, Take 1 capsule by mouth once daily. famotidine (PEPCID) 20 mg tablet, Take 1 tablet by mouth daily at bedtime. ferrous sulfate 325 mg (65 mg iron) tablet, Take 1 tablet by mouth twice daily. atorvastatin (LIPITOR) 40 mg tablet, Take 1 tablet by mouth daily at bedtime. potassium chloride (K-TAB) 10 mEq tablet, Take 1 tablet by mouth once daily. pregabalin (LYRICA) 150 mg capsule, Take one pill three times per day albuterol HFA (VENTOLIN HFA) 90 mcg/actuation inhaler, Inhale 2 Puffs as instructed every 4 hours as needed for wheezing/shortness of breath. ibuprofen (MOTRIN) 800 mg tablet, Take 1 tablet by mouth every 8 hours as needed for pain. Take with food. buPROPion SR (ZYBAN SR; WELLBUTRIN SR) 150 mg 12 hr tablet, Nebulizers, Use as directed. lurasidone (LATUDA) 80 mg tablet, Take 80 mg by mouth once daily. with meals take with 350 calories. levothyroxine (SYNTHROID) 25 mcg tablet, Take 25 mcg by mouth daily before breakfast. FLUoxetine (PROZAC) 20 mg capsule, Take 20 mg by mouth once daily. thiamine (VITAMIN B1) 100 mg tablet, Take 1 tablet by mouth once daily. COMPOUNDED PRESCRIPTION, Standard size Rollator Walker #1 Dx Large Blood Pressure Cuff #1 M51.36 DDD (degenerative disc disease), lumbar (primary encounter diagnosis) I10 Essential hypertension benztropine (COGENTIN) 0.5 mg tablet, Take 0.5 mg by mouth daily at bedtime. COMPOUNDED PRESCRIPTION, ADJUSTABLE CANE DX M51.36 HISTORIES PAST MEDICAL HISTORY Diagnosis Date Alcohol abuse Anemia Back pain Blood dyscrasia Cholecystitis 04/2020 DDD (degenerative disc disease), lumbar Depression with anxiety Drug use 08/15/2018 ecstacy Emphysema of lung ([facility]) Encounter for support and coordination of transition of care 05/15/2020 HOSPITAL/ER FOLLOW UP Which facility: [facility] Dates of visit: 05/10-05/13/2020 Preadmission evaluation: ER with right-sided abdominal pain over 2-1/2 hours, 10 out of 10. Worse with coughing. States she vomited 20 times the day before, with episodes of diarrhea over the past 2 days. Had used Imodium which improved diarrhea. No known exposures to Covid. Also identified chest pain which started a Encounter for support and coordination of transition of care 05/02/2021 Hospital discharge summary: Date of admission 05/01/2021 Date of discharge: Facility: [facility] 05/01/2021 presented to the emergency room with acute alcohol intoxication, initial alcohol level 7-8. Acknowledges over the last 5 months drinking 15 packs a day at 8% alcohol (natty dadalfa). Vital signs 96.6 [id number]%. Appearance was no acute distress. WBC 7.9 Hgb 13.8 HCT 39 GERD (gastroesophageal reflux disease) Hyperglycemia Hypertension Lung abscess (HCC) saw Néstor Li and Dr. Zarate. Major depression Mild protein-calorie malnutrition (HCC) 08/26/2020 Obesity PE (pulmonary thromboembolism) ([facility]) PTSD (post-traumatic stress disorder) Snoring Tobacco use disorder PAST SURGICAL HISTORY Procedure Laterality Date CARPAL TUNNEL Left 09/2015 COLONOSCOPY 11/27/2021 COLONOSCOPY FLX DX W/COLLJ SPEC WHEN PFRMD several years ago Colonoscopy COLONOSCOPY FLX DX W/COLLJ SPEC WHEN PFRMD 10/02/2014 Colonoscopy ESOPHAGOGASTRODUODENOSCOPY TRANSORAL DIAGNOSTIC 10/02/2014 EGD HEART CATHETERIZATION 10/30/2013 normal coronary arteries HYSTERECTOMY HX 2004 menorrhagia. JONAS/right oophorectomy. bowel adhesion HYSTERECTOMY HX 1989' LAPAROSCOPY SURG CHOLECYSTECTOMY 05/12/2020 NEUROPLASTY &/TRANSPOS MEDIAN NRV CARPAL TUNNE Right 11/21/2015 Carpal tunnel decomp OVARIAN CYSTECTOMY UNI/BI 1996 left oophorectomy and 20# cyst PAST SURGICAL HISTORY OF 07/2012 Lumbar discectomy L3-L4 PAST SURGICAL HISTORY OF 09/2012 repeat lumbar surgery SKIN GRAFT,SCALP,ARMS,LEGS 12/2013 bilateral posterior thigh autograft, fell in firepit TONSILLECTOMY & ADENOIDECTOMY <AGE 10 1977 FAMILY HISTORY Problem Relation Age of Onset Hypertension Mother Cancer Mother lung, metastatic Heart Father Heart Maternal Grandmother Stroke Maternal Grandmother Colon Cancer No Family History SOCIAL HISTORY Social History Tobacco Use Smoking status: Current Every Day Smoker Packs/day: 0.75 Years: 32.00 Pack years: 24.00 Types: Cigarettes Smokeless tobacco: Never Used Tobacco comment: started smoking 12yr .5 to .75 of pack daily-in process of quitting as of 09/29/15 Substance Use Topics Alcohol use: Not Currently Drug use: Yes Types: Marijuana Physical Exam Vitals and nursing note reviewed. Constitutional: Appearance: She is well-developed. HENT: Head: Normocephalic. Pulmonary: Effort: Pulmonary effort is normal. Skin: General: Skin is warm and dry. Neurological: Mental Status: She is alert and oriented to person, place, and time. Psychiatric: Behavior: Behavior normal. Thought Content: Thought content normal. Judgment: Judgment normal. BP 134/82 Pulse 75 SpO2 96% ASSESSMENT/PLAN: 1. Urge incontinence - ICD9: 788.31, ICD10: N39.41 (primary diagnosis) 2. Stress incontinence, female - ICD9: 625.6, ICD10: N39.3 Oxybutynin 10mg. Kegels 6 weeks w/ dorothy, still needs pelvic exam. Smoking cessation. Blaine Ann Medical Decision Making: Problems: Moderate: New problem with uncertain prognosis Data: Unique test result(s) reviewed: 1 Risk: Moderate: Drug management Medical Decision Making Level: 4 - Moderate This note was partially created using voice recognition software and is inherently subject to errors including those of syntax and sound-alike substitutions which may escape proofreading. In such instances, original meaning may be extrapolated by contextual derivation. documented in this encounter [facility] 12-10-2021 Miscellaneous Notes Patient has been identified by name and date of : Yes Pharmacy phones for refill(s): Pending Prescriptions Disp Refills SPIRIVA RESPIMAT 2.5 MCG/ACTUATION SOLUTION FOR INHALATION 1 Each 5 Sig: Inhale 2 Puffs as instructed once daily. NATALIO: No Date of last office visit in primary care: 11/12/21, NOV: not scheduled yet Last 2 Encounter Wt Readings: Date: Wt: 12/09/2021 83.9 kg (185 lb) 11/27/2021 83.9 kg (185 lb) Please advise. Thank you. Fadumo Romero RN documented in this encounter [facility] 12-10-2021 Miscellaneous Notes 1.Are you diabetic No 2. Are you on any blood thinners? No 3. Are you taking any aspirin? No 4. Have you had any recent imaging done on your body part that's being injected? Yes xrays 5. Do you have any allergies to latex? No 6. Do you have any allergies to seafood? No 7. Do you have any allergies to shellfish? No 8. Do you have any allergies to x-ray dye? No 9. Are you taking Xanax for the procedure? No 10. Have you done physical therapy in the last year? No If yes, When and Where? (Medical Records Release needs to be signed.) 11. Were the pre-procedure instructions explained to the patient? Yes 12. Do you have a pacemaker? No 13. Do you have an internal stimulator of any kind? No If yes, please bring the remote with you to your procedure visit. 14. Have you received the COVID-19 Vaccine? Yes. If yes, date(s) received: Booster done 11/12/2021 (Patient should not receive a procedure including steroids 14 days prior to their first dose of the COVID vaccine. They should not receive any procedure containing steroids in the time frame between their 1st and 2nd doses of the COVID vaccine. They should not receive a procedure containing steroids 14 days after their 2nd dose of the COVID vaccine.) Jenifer Sherman documented in this encounter [facility] 12-09-2021 Miscellaneous Notes Please see below regarding home care Denice Gr APRN.CNP Thank you for the referral of your patient to [facility]. At this time, we are at capacity and are unable to accept your patient. In order to help your patient receive quality home care, we have included reputable agencies that service this area: [facility] [phone] or [facility] [phone]. Please contact this agency and they will work with your patient to arrange timely services. Thank you, SHERLEY Castorena 12/09/2021 3:03 PM documented in this encounter [facility] 12-09-2021 Instructions Denice Gr APRN.CNP - 12/09/2021 2:51 PM EDT Ice and heat as tolerated Activity as tolerated documented in this encounter [facility] 12-07-2021 History of Present illness Narrative AMBULATORY TELEPHONE VISIT Mariluz Christine Jose has consented to this telephone encounter. Persons Present: patient Chief Complaint/Reason: back pain, pain score 9/10 HPI: She was last seen in August 2021 for a lumbar epidural steroid injection with Dr. Duong and did not return for follow-up. She presents today with increased back pain. She was doing over 50% better until a few weeks ago. She has been moving and had her teeth pulled. She is wondering about another injection for the back pain and bilateral leg pain. The neck is also tender and she is wondering about this as well. She is having great difficulty performing her ADLs and maintaining her overall daily chores. She is wondering about a home health aide Ht 175.3 cm (5' 9 ) Wt 83.9 kg (185 lb) BMI 27.32 kg/m REVIEW OF SYSTEMS GENERAL: No weight loss, malaise or fevers HEENT: No nasal bleeding, congestion or rhinorrhea NECK: Negative for lumps, goiter, pain and significant neck swelling RESPIRATORY: Severe COPD, o2 CARDIOVASCULAR: Negative for chest pain, leg swelling, hypertension, CHF or palpitations GI: No nausea, vomiting, or diarrhea : hard to control urine at times- MUSCULOSKELETAL: back pain SKIN: Negative for lesions, rash, and itching PSYCH: well controlled HEMATOLOGY/LYMPHOLOGY: Negative for prolonged bleeding, bruising easily or swollen nodes ENDOCRINE: Negative for cold or heat intolerance, polyuria, polydipsia and goiter NEURO: Numbness or tingling of feet Data Reviewed: Most recent imaging 06/05/2021 11:38 AM - Radiology, Oru In Impression IMPRESSION: Scoliosis and spondylosis as discussed. There is no high-grade spinal stenosis. Moderate to severe right foraminal narrowing at L4-L5 affecting the exiting right L4 nerve root, severe left foraminal narrowing at L5-S1 affecting the exiting left L5 nerve root. Lateral recess narrowing on the right at L3-L4 likely impinges on the descending right L4 nerve root. Bilateral lateral recess narrowing at L4-L5 likely impinges on the descending L5 nerve roots. Would expect lower extremity radiculopathy as a consequence. No impingement of the distal cord. Degenerative changes have progressed since the prior MRI in 2013. Anatomic Thoracic/Lumbar Variant: None. L4-5 is considered the level of the iliac crest and assume there are 5 lumbar-type vertebrae. Jack Frame Tender: CJ Transcribe Date/Time: Jun 05 2021 11:26A Dictated by : GITA MALHOTRA MD This examination was interpreted and the report reviewed and electronically signed by: GITA MALHOTRA MD on Jun 05 2021 11:36AM EST Results-Findings * * *Final Report* * * DATE OF EXAM: Jun 05 2021 10:50AM [id number] - MRI LUMBAR SPINE WO IVCON / PROCEDURE REASON: multiple diagnoses * * * * Physician Interpretation * * * * EXAMINATION: MRI LUMBAR SPINE WO IVCON CLINICAL HISTORY: Lumbar spondylosis Spinal stenosis of lumbar region without neurogenic claudication. Additional narrative history of prior spine surgery in 2012. Back pain radiates into both hips and left leg. This information is taken directly from the service order dispatcher system. TECHNIQUE: Routine lumbosacral spine MR protocol without gadolinium. MQ: [id number] COMPARISON: Prior lumbar plain films 01/16/2021. Previous outside MRI of the lumbosacral spine 04/24/2014. RESULT: Counting reference: Lumbosacral junction. For the purposes of this report, L4-5 is considered the level of the iliac crest and assume there are 5 lumbar-type vertebrae. Anatomic variant: None. Localizer images: Moderate obesity. No paraspinal masses are evident. Tiny bilateral renal cysts. Alignment: Mild scoliotic curvature convex left visible on the picture enlarger. [place] at L4-L5. Mild straightening of usual lumbar lordosis and slightly kyphotic alignment at the level of L1 related to minimal old anterior wedging morphology of L1. Bone marrow signal/fracture: Advanced endplate degenerative change at L1-L2 through the L4-L5 level. Type I endplate changes, which may contribute to mechanical back pain. Multilevel endplate irregularities which have the morphology of Schmorl's nodes. No gross vertebral body collapse or bony retropulsion otherwise. Conus: The distal cord terminates normally at the extreme upper margin of L2. No impingement of the distal cord within the [id number]. Paraspinal soft tissues: As above. No paraspinal masses are evident. Lower thoracic spine: Canal and foramina are normally patent at T11-T12. Facet degenerative changes are present at this level, but no significant impact on canal or foraminal patency. T12-L1: Canal and foramina are patent. L1-L2: Disk bulging, loss of disk height, and loss of normal T2 hyperintensity in the disk. Facet degenerative change. Central canal is patent. Neural foramina are patent. L2-L3: Disk bulging, loss of disk height, and partial loss of normal T2 hyperintensity in the disk. Facet degenerative change. Flattening of ventral thecal sac, spinal canal and lateral recesses are otherwise grossly open. Neural foramina are patent. L3-L4: Disk bulging, loss of disk height, and loss of normal T2 hyperintensity in the disk.. Facet degenerative change. Prior right hemilaminectomy. There is right lateral recess narrowing, likely impinging on the descending right L4 nerve root. Left lateral recess is open. Spinal canal is otherwise patent. Loss of disc height, lateral margin of the annulus, and facet degenerative change contributes to [id number] right foraminal narrowing. L4-L5: Disk bulging, loss of disk height, and loss of normal T2 hyperintensity in the disk. Facet degenerative change. Bilateral lateral recess narrowing impinging the descending L5 nerve roots. Loss of disc height, lateral margins of the annulus, and facet degenerative change contribute to moderate-severe right foraminal narrowing. Left neural foramen is patent. L5-S1: Mild disc bulging and facet degenerative change. Central thecal sac is patent. No compression of either descending S1 nerve root sleeve. Loss of disc height, lateral margin of the annulus, and facet degenerative change contributes to severe left foraminal narrowing. Right neural foramen is patent. Sacrum and iliac wings: No acute fracture. 11/12/2021 4:11 PM - Radiology, Oru In Impression IMPRESSION: Spondylosis of the cervical spine. Jack Frame Tender: CJ Transcribe Date/Time: Nov 12 2021 4:07P Dictated by : MARYA MCCRAY MD This examination was interpreted and the report reviewed and electronically signed by: MARYA MCCRAY MD on Nov 12 2021 4:09PM EST Results-Findings * * *Final Report* * * DATE OF EXAM: Nov 12 2021 3:56PM [id number] - XR CERVICAL 4V AP/LAT/OBL / PROCEDURE REASON: Cervicalgia * * * * Physician Interpretation * * * * Cervical spine radiographs HISTORY: 51 years old Clinical information: Cervicalgia neck pain TECHNIQUE: Images: XR CERVICAL 4V AP/LAT/OBL Comparison: January 16, 2021. RESULT: Findings: 2.1 mm anterolisthesis of C4 on C5. Endplate osteophytes at multiple levels in the cervical spine. Narrowing of the right C6-7 neural foramen. No fracture. The prevertebral soft tissues are within normal limits. Imaged lung apices are clear. Assessment: (M54.16) Radiculopathy, lumbar region (primary encounter diagnosis) (M48.061) Spinal stenosis of lumbar region without neurogenic claudication (M47.816) Lumbar spondylosis (M54.50, G89.29) Chronic bilateral low back pain without sciatica Plan: I am going to have her see urology for the urinary urgency. I do not see any compression on her lumbar MRI that would be causing this She has requested home health, I have placed a referral for this Risks, benefits, and alternatives to the procedure were discussed with the patient. The patient was educated about special protocols to mitigate any exposure or infection risk in our facility and patient wishes to proceed with the procedure. H&P done 12/09/2021 We will plan on the repeat lumbar CYNDIE for the radicular pain here. She had over 6 weeks of >50% relief She has quite a bit of ongoing neck pain and her cervical x-ray showed spondylosis. We will plan for some medial branch blocks with steroid for the acute pain here. Consider second diagnostic medial branch block here if short-term relief only. We could consider RFA She is going to need PT when she is feeling better for a strengthening program. I was unable to see her as we did a telephone visit today. But she is describing quite a bit of deconditioned state ORT was 10 or high risk for opioid abuse Total Time Spent: 15 minutes Denice Gr APRN.SENIOR CONTRACTS ADMINISTRATOR documented in this encounter [facility] 12-07-2021 Miscellaneous Notes Spoke with Mariluz, gave her the number to schedule her fibroscan at [facility], and let her know she can get her labs done at the [facility] for Hep C meds. Bharti Sherman CMA documented in this encounter [facility] 11-27-2021 Nurse Note Pt states readines for discharge. Dr. Blevins at bedside speaking with mario. documented in this encounter [facility] 11-27-2021 History and physical note HISTORY AND PHYSICAL Mariluz Garcia, 51 year old female here for polyp surveillance colonoscopy. Last colonoscopy done for abdominal pain in 2014 with removal of 9mm rectal tubular adenoma. Current history and physical on file: Yes Is a new History and Physical required for today's visit? Yes Indication for procedure: History of colon polyps PROCEDURE(S) SCHEDULED FOR: Colonoscopy with or without biopsies and with or without removal of polyps or lesions, dilation (any means), treatment of bleeding (any means), based on clinical findings. BASELINE BEHAVIOR: Calm BASELINE ORIENTATION: A & O x3 All medications and allergies reviewed: Yes Skin Assessment: Warm dry mucus membranes pink Airway/Respiratory Assessment: Airway: visualization of the uvula- Yes Mouth: opening greater than 2 fingerbreadths- Yes Neck: full range of motion- Yes Breath sounds clear/equal- Yes Cardiac Assessment: Regular rate and rhythm without murmur Abdominal Assessment: Abdomen soft, non-tender, no masses or organomegaly. Sedation Plan: Moderate Additional Comments: None Josué Blevins MD documented in this encounter [facility] 11-23-2021 Miscellaneous Notes Faxed over fibroscan to [facility]. Asked for them to contact patient directly to get scheduled. Sydney Bowens documented in this encounter [facility] 11-23-2021 Instructions Josué Blevins MD - 11/23/2021 9:40 AM EDT Images from the original note were not included. Bowel Preparation Instructions for: Golytely, Nulytely, Trilyte or Colyte (polyethylene glycol 3350 and electrolytes) IF YOU DO NOT FOLLOW THESE DIRECTIONS, YOUR COLONOSCOPY WILL BE CANCELLED. [place]lier Instructions: Your bowel must be empty so that your doctor can clearly view your colon. Follow all of the instructions in this handout EXACTLY as they are written. Do NOT eat any solid food the ENTIRE day before your colonoscopy. Drink only clear liquids. Buy your bowel preparation at least 5 days before your colonoscopy. TRANSPORTATION on the Day of Your Exam A responsible person MUST be present with you at Check In prior to your colonoscopy and REMAIN in the endoscopy area until you are discharged. You are NOT ALLOWED to drive, take a taxi or bus, or leave the Endoscopy Center ALONE. If you do not have a responsible local truck driver (family member or friend) with you to take you home, your exam cannot be done with sedation and will be cancelled. Please bring a list of all of your current medications, including any Over-the Counter medications with you. Medications If you take insulin, diabetic medications or blood thinners such as Coumadin (warfarin), Plavix (clopidogrel), Ticlid (ticlopidine hydrochloride), Agrylin (anagrelide), Xarelto (Rivaroxaban), Pradaxa (Dabigatran), Eliquis (Apixaban), and Effient (Prasugrel). You MUST call the doctors who orders those medicines for instructions on altering the dosage before your colonoscopy. All other medications should be taken the day of the exam with a sip of water including ASPIRIN. Five (5) Days Before Your Colonoscopy Do NOT take medicines that stop diarrhea - such as Imodium, Kaopectate, or Pepto Bismol. Do NOT take fiber supplements - such as Metamucil, Citrucel, or Perdiem. Do NOT take products that contain iron - such as multi-vitamins (the label lists what is in the products). Do NOT take Vitamin E. Buy the prescription bowel preparation solution at your local pharmacy or drugstore pharmacy. 05/2019 Bowel Preparation Instructions for: Golytely, Nulytely, Trilyte or Colyte (polyethylene glycol 3350 and electrolytes) Three (3) Days Before Your Colonoscopy Do NOT eat high-fiber foods - such as popcorn, beans, seeds (flax, sunflower, quinoa), multigrain bread, nuts, salad/vegetables, or fresh and dried fruit. One (1) Day Before Your Colonoscopy Only drink clear liquids the ENTIRE DAY before your colonoscopy. Do NOT eat any solid foods. Drink at least 8 ounces of clear liquids every hour after waking up. The clear liquids you can drink include: Clear Liquid (NO RED LIQUIDS) DO NOT DRINK Gatorade, Pedialyte or Powerade Clear broth or bouillon Coffee or tea (no milk or non-dairy creamer) Carbonated and non-carbonated soft drinks Valdez-Aid or other fruit flavored drinks Strained fruit juices (no pulp) Jell-O, popsicles, hard candy Water Alcohol Milk or non-dairy creamers Noodles or vegetables in soup Juice with pulp Liquid you cannot see through The bowel preparation solution will be consumed in two parts. Mix the solution the evening before your colonoscopy and refrigerate before drinking. You may add the flavor pack that came with the bowel preparation. Do NOT add ice, sugar or any other flavorings to the solution. Part 1 At 6:00 PM - Evening before your colonoscopy Drink an 8-oz glass of bowel preparation every 10 minutes for a total of 8 glasses. You may continue to drink clear liquids until midnight. Part 2 On the day of your colonoscopy you may drink clear liquids up to (three) 3 hours before your procedure. 4 1/2 hours before your colonoscopy Drink an 8-oz glass of bowel preparation every 10 minutes for a total of 8 glasses. Fifteen (15) minutes later, drink an 8-oz glass of clear liquids every 15 minutes for a total of 2 glasses. You may continue to drink clear liquids up to (three) 3 hours before your exam. 2 05/2019 documented in this encounter [facility] 11-23-2021 History of Present illness Narrative CHIEF COMPLAINT: Patient presents with: Chronic Hep C: Labs 11/12/21 This consult was requested by Jaimee Palomares PA-C for an opinion regarding hepatitis C. My final recommendations will be communicated to the requesting health care provider by way of the shared medical record for internal providers or letter via the [employer] for external providers. HPI: Mariluz Garcia is a 51 year old female who presents for Chronic Hep C (Labs 11/12/21). Had recent blood work by PCP that showed HCV antibody positive, RNA - 667,000 (11/12/21). LFTs are normal AST/ALT . Thinks she has been told in the past that she has Hep C. Never treated. Risk factors - h/o IVDU in her teens. Skin tattoos made by friends. Two sexual partners in the last 8 years, says one of them in [facility]. Had blood transfusion few years ago for iron def anemia. Subjectively denies any nausea, vomiting, fever/chills, abdominal pain, constipation/diarrhea, blood in stool, hematemesis, sleep cycle inversion. Smoking - 1ppd X 40 years. Etoh - quit 6 months ago. Recovering alcoholic. 15-30 beers/day (12oz) Drugs - marijuana. Record Review: [facility] / Outside records reviewed. Colonoscopy 09/2014 A 9 mm polyp was found in the rectum. The polyp was semi-sessile. The polyp was removed with a hot snare. Resection and retrieval were complete. Estimated blood loss: none. The colon (entire examined portion) appeared normal. Biopsies for histology were taken with a cold forceps from the entire colon for evaluation of microscopic colitis. Estimated blood loss was minimal. EGD 10/02/2014 The examined esophagus was normal. Patchy mildly erythematous mucosa was found in the gastric antrum. Biopsies were taken with a cold forceps for histology. Estimated blood loss was minimal. The examined duodenum was normal. 1. Gastric antrum, biopsy (A) - Gastric antral mucosa without diagnostic abnormality. - No histomorphologic evidence of Helicobacter pylori organisms. 2. Random colon, biopsy (B) - Colonic mucosa without diagnostic abnormality. - No evidence of colitis. 3. Rectal polyp, biopsy (C) - Tubular adenoma. PAST MEDICAL HISTORY Diagnosis Date Alcohol abuse Anemia Back pain Blood dyscrasia Cholecystitis 04/2020 DDD (degenerative disc disease), lumbar Depression with anxiety Drug use 08/15/2018 ecstacy Emphysema of lung (HCC) Encounter for support and coordination of transition of care 05/15/2020 HOSPITAL/ER FOLLOW UP Which facility: [facility] Dates of visit: 05/10-05/13/2020 Preadmission evaluation: ER with right-sided abdominal pain over 2-1/2 hours, 10 out of 10. Worse with coughing. States she vomited 20 times the day before, with episodes of diarrhea over the past 2 days. Had used Imodium which improved diarrhea. No known exposures to Covid. Also identified chest pain which started a Encounter for support and coordination of transition of care 05/02/2021 Hospital discharge summary: Date of admission 05/01/2021 Date of discharge: Facility: [facility] 05/01/2021 presented to the emergency room with acute alcohol intoxication, initial alcohol level 7-8. Acknowledges over the last 5 months drinking 15 packs a day at 8% alcohol (marcin samaniego). Vital signs 96.6 F-78-18-111/73-98%. Appearance was no acute distress. WBC 7.9 Hgb 13.8 HCT 39 GERD (gastroesophageal reflux disease) Hyperglycemia Hypertension Lung abscess (HCC) saw Néstor Li and Dr. Zarate. Major depression Mild protein-calorie malnutrition (HCC) 08/26/2020 Obesity PE (pulmonary thromboembolism) (HCC) PTSD (post-traumatic stress disorder) Snoring Tobacco use disorder PAST SURGICAL HISTORY Procedure Laterality Date CARPAL TUNNEL Left 09/2015 COLONOSCOPY FLX DX W/COLLJ SPEC WHEN PFRMD several years ago Colonoscopy COLONOSCOPY FLX DX W/COLLJ SPEC WHEN PFRMD 10/02/14 Colonoscopy ESOPHAGOGASTRODUODENOSCOPY TRANSORAL DIAGNOSTIC 10/02/14 EGD HEART CATHETERIZATION 10/30/2013 normal coronary arteries HYSTERECTOMY HX 2004 menorrhagia. JONAS/right oophorectomy. bowel adhesion HYSTERECTOMY HX 1989' LAPAROSCOPY SURG CHOLECYSTECTOMY 05/12/2020 NEUROPLASTY &/TRANSPOS MEDIAN NRV CARPAL TUNNE Right 11/21/2015 Carpal tunnel decomp OVARIAN CYSTECTOMY UNI/BI 1996 left oophorectomy and 20# cyst PAST SURGICAL HISTORY OF 07/2012 Lumbar discectomy L3-L4 PAST SURGICAL HISTORY OF 09/2012 repeat lumbar surgery SKIN GRAFT,SCALP,ARMS,LEGS 12/2013 bilateral posterior thigh autograft, fell in firepit TONSILLECTOMY & ADENOIDECTOMY <AGE 10 1977 Allergies: ALLERGIES Allergen Reactions Fentanyl Other: See Comments PATCH ONLY. Respiratory distress due to rapid absorption. Chantix [Vareniclin* Intolerance hallucinations Medications: lisinopril (ZESTRIL, PRINIVIL) 20 mg tablet Take 1 tablet by mouth once daily. furosemide (LASIX) 40 mg tablet Take 1 tablet by mouth once daily. albuterol (PROVENTIL) 2.5 mg /3 mL (0.083 %) nebulizer solution Use 3 mL via nebulizer every 4 hours as needed for wheezing/shortness of breath. Use over 5-15minutes. baclofen (LIORESAL) 10 mg tablet Take 1 tablet by mouth twice daily. budesonide-formoterol (SYMBICORT) 160-4.5 mcg/actuation inhaler Inhale 2 Puffs as instructed twice daily. Cholecalciferol, Vitamin D3, (VITAMIN D) 25 mcg (1,000 unit) cap Take 1 capsule by mouth once daily. famotidine (PEPCID) 20 mg tablet Take 1 tablet by mouth daily at bedtime. ferrous sulfate 325 mg (65 mg iron) tablet Take 1 tablet by mouth twice daily. atorvastatin (LIPITOR) 40 mg tablet Take 1 tablet by mouth daily at bedtime. potassium chloride (K-TAB) 10 mEq tablet Take 1 tablet by mouth once daily. pregabalin (LYRICA) 150 mg capsule Take one pill three times per day albuterol HFA (VENTOLIN HFA) 90 mcg/actuation inhaler Inhale 2 Puffs as instructed every 4 hours as needed for wheezing/shortness of breath. omeprazole (PRILOSEC) 40 mg capsule Take 1 capsule by mouth once daily. tiotropium bromide (SPIRIVA RESPIMAT) 2.5 mcg/actuation inhaler Inhale 2 Puffs as instructed once daily. ibuprofen (MOTRIN) 800 mg tablet Take 1 tablet by mouth every 8 hours as needed for pain. Take with food. buPROPion SR (ZYBAN SR; WELLBUTRIN SR) 150 mg 12 hr tablet Nebulizers Use as directed. lurasidone (LATUDA) 80 mg tablet Take 80 mg by mouth once daily. with meals take with 350 calories. levothyroxine (SYNTHROID) 25 mcg tablet Take 25 mcg by mouth daily before breakfast. FLUoxetine (PROZAC) 20 mg capsule Take 20 mg by mouth once daily. thiamine (VITAMIN B1) 100 mg tablet Take 1 tablet by mouth once daily. COMPOUNDED PRESCRIPTION Standard size Rollator Walker #1 DxLarge Blood Pressure Cuff #1M51.36 DDD (degenerative disc disease), lumbar (primary encounter diagnosis)I10 Essential hypertension benztropine (COGENTIN) 0.5 mg tablet Take 0.5 mg by mouth daily at bedtime. 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 All other systems reviewed and are negative. Are you taking any blood thinners? No Physical Examination: BP 108/78 Pulse 79 Ht 5' 9 (1.75m) Wt 185 lb (83.9kg) BMI 27.31 kg/(m^2). Physical Exam Constitutional: Appearance: Normal appearance. HENT: Head: Normocephalic. Mouth/Throat: Mouth: Mucous membranes are moist. Eyes: General: No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 probably benign (not cancer). If you have a healthcare provider who ordered/prescribed your screening mammogram: Please call [phone] or EXT: [phone] to schedule an appointment for your additional imaging (if you have not already done so). If you DO NOT have a healthcare provider (ie you did not have an order/prescription for your screening mammogram): Please call to schedule an appointment for your additional imaging (if you have not already done so). You must have an order/prescription from your physician when calling to schedule your appointment. If your order/prescription is not electronic, you must bring the hard copy with you on the day of your exam to avoid delays. Your imaging studies and reports are kept on file at [facility] as part of your permanent medical record, and are available for your continuing care. Thank you for allowing us to help in meeting your health care needs. Sincerely, Dr. Loredo Interpreting Radiologist [facility] (Additional imaging) documented in this encounter [facility] 10-01-2021 History of Present illness Narrative Radiology Service Progress Note PATIENT NAME: Mariluz Garcia DATE OF SERVICE: October 01, 2021 TIME: 12:44 PM PATIENT IDENTITY VERIFICATION COMPLETED USING TWO (2) IDENTIFIERS: Name and Date of confirmed by patient verbally. FALL SCREENING: Has the patient had 2 falls in the last year or 1 fall with injury or currently using an Ambulatory Assistive Device (Walker, Cane, Wheelchair, Crutches, etc.)? No PATIENT GENDER DATA: Female. status: : No status: NO. PATIENT RELEVANT IMPLANT DATA REVIEWED: Not Applicable RADIOLOGY DEPARTMENT: Mammography PERIPHERAL IV DATA: Not applicable SIGNED BY: RT Nancy(R) October 01, 2021 12:44 PM documented in this encounter [facility] 09-21-2021 Miscellaneous Notes Please advise insurance covers symbicort, similar to Breo The following approved medication requests have been transmitted electronically. Signed Prescriptions Disp Refills budesonide-formoterol (SYMBICORT) 160-4.5 mcg/actuation inhaler 1 Each 5 Sig: Inhale 2 Puffs as instructed twice daily. Authorizing Provider: Jaimee PALOMARES PA-C [facility] calling to state patient's Geraldine Reza is needing a pre-auth. Pharmacy states either symbicort or Dulera is covered by patient's insurance if provider would like to switch. Please advise [facility] at [phone]. Thank you. documented in this encounter [facility] 09-11-2021 Miscellaneous Notes Patient has been identified by name and date of : Yes Pending Prescriptions Disp Refills CHOLECALCIFEROL (VITAMIN D3) 25 MCG (1,000 UNIT) CAPSULE 90 capsule 1 Sig: Take 1 capsule by mouth once daily. NATALIO: No CORY-07/23/21 Labs-01/16/21 NOV-none RX INSTRUCTIONS: Pharmacy initiated this request. No need to notify patient. Stephany Bowser Pss documented in this encounter [facility] 07-17-2021 Miscellaneous Notes Sw spoke with patient in regarding patient needs. Patient reports that she can use a home planning consultant salesperson. Patient reports that she has back pain and is unable to stand for long periods of time. Needs assistance with cooking, cleaning, grooming. Sw briefly discussed [place] [facility]. Patient notes that she had home planning consultant salesperson in the past. The end and services ended 2 years ago and patient notes that she is not sure as to why services stopped. Sw noted number for home care waiver to see about referring or if her case is still open check on status. Patient notes that she is at an appt and requests that Sw mail her number. Sw will mail patient [place] [facility] [employer] application with contact number. Called Pt and let her know that Stephany from [facility] had informed us that she had recently been in the hospital. I ask the Pt if we could get her scheduled for a hospital follow up, and Pt was agreeable. Pt is scheduled to see Faustino Palomares on 07/23/21 at 1120. I had asked her if she felt she would benefit with talking to SW to see if they could get her in touch with any services that she may need for help in the future. Stephany JAVIERmolder automobile carpets Care [facility] from [facility] called in and reports Pt had been in [facility] fr 04/30/22-05/02/22. Then she went to the [address] [place] [address] from 05/03/22-07/02/21 for a substance use disorder services. Stephany states that they did an an initial discharge follow up, but they have been trying to reach her for a 14 day follow up and can't get a hold of her. She had been trying to find Pts provider but had been unable to for a while. Just wanted to inform us about Pt. Pts last appointment with provider was 01/17/12 documented in this encounter [facility] documented as of this encounter (statuses as of 09/11/2021) [facility] History of Past illness Narrative* Problem Noted Date Resolved Date Encounter for support and coordination of transi tion of care 05/02/2021 07/23/2021 Overview: Hospital discharge summary: Date of admission 05/01/2021 Date of discharge: Facility: [facility] 05/01/2021 presented to the emergency room with acute alcohol intoxication, initial alcohol level 7-8. Acknowledges over the last 5 months drinking 15 packs a day at 8% alcohol (nataidan samaniego). Vital signs 96.6 F-78-18-111/73-98%. Appearance was no acute distress. WBC 7.9 Hgb 13.8 HCT 39.7 PLT 306. NA 130 2L K3.7 CL 90 6L CO2 26.0 BUN 20.5H CRE 0.93 GLU 111 Admitted from ER to detox unit Active problem list: 1. Alcohol dependence: Started on phenobarbital, gabapentin as needed dicyclomine as needed, Vistaril as needed, Imodium as needed, trazodone as needed, Zofran as needed, scheduled thiamine and scheduled folic acid. 2. Tobacco abuse: Nicotine patch prescribed, tobacco withheld. 3. Marijuana abuse: Counseled 4. Anxiety depression, PTSD: Continue home medications 5. COPD with home oxygen use: Stable, continue supplements duration O2 with continuous pulse oximetry per patient. 6. Hyponatremia chronic: Stable 7 DVT risk low: Encourage ambulation. Encounter for support and coordination of transi tion of care 05/15/2020 05/02/2021 Overview: HOSPITAL/ER FOLLOW UP Which facility: [facility] Dates of visit: 05/10-05/13/2020 Preadmission evaluation: ER with right-sided abdominal pain over 2-1/2 hours, 10 out of 10. Worse with coughing. States she vomited 20 times the day before, with episodes of diarrhea over the past 2 days. Had used Imodium which improved diarrhea. No known exposures to Covid. Also identified chest pain which started approximately 2:00 that afternoon. Subjective fever and chills, chronic cough that is unchanged. Patient was afebrile with temp of 99.4 Fahrenheit, heart rate of 95, blood pressure 147/92. O2 saturation 94% but patient was started on O2 at 2 L per nasal cannula abdominal exam with severe tenderness over epigastric and right upper quadrant and right lower quadrant. No distention. CBC showed white count of 15.2 with neutrophils of 70. Hemoglobin 14.9, platelet 227, CMP within normal limits except for sodium of 134, glucose 107, total bili 1.5, AST and ALT 5 5/277, alk phos 122, troponin negative. Lipase 170. Covid rapid test negative. Ethanol 64. Chest x-ray with generalized hyperinflation, no acute findings. CT of abdomen pelvis without contrast demonstrated severe fatty liver, mild hepatomegaly, normal gallbladder, exophytic isodense nodule on the lower pole of the right kidney, mild bilateral fatty groin hernia. Appendix considered normal. Ultrasound of gallbladder demonstrated partially distended gallbladder with a positive sonographic Kennedy sign, no gallstones. Also identified mild perihepatic ascites. In ER patient was given IV Zofran, morphine 4 mg x 2 IV, Ativan 1 mg IV x1. Primary Diagnosis/es: Acute cholecystitis Elevated LFTs Secondary Diagnosis/es: Anxiety depression Hyperlipidemia Chronic tobacco use Chronic alcohol abuse SANA Hypothyroidism COPD with emphysema Chronic back pain PTSD Chronic anemia unknown etiology Gastroesophageal reflux disease Pulmonary embolus Consultants: Surgery: Dr. Gaye Gordon testing done: ----- -Labwork: See above 05/13/2020 WBC 8.9, hemoglobin 11.4, hematocrit 36.8, elevated indices, RDW of 51.0, platelet count 171, absolute neutrophil count elevated at 7.8. Electrolytes all within normal limits except anion gap of 2, BUN of 2, creatinine 0.68 with estimated GFR of 97. Glucose 148, calcium 8.2. Bilirubin normal, AST 162, ALT 139, alk phosphatase 81 normal, total protein and albumin low 6.3, 2.1 respectively ----- -Imaging: As above 05/12/2020 hepatobiliary scan nuclear medicine: No scintigraphic evidence of cholecystitis or biliary obstruction ----- -Cardiac: ----- -Other: ----- Procedures/ Surgery: Surgery: Laparoscopic cholecystectomy with surgical findings of thickened gallbladder wall with areas of gangrene, enlarged liver with fatty infiltration ascites Hospital course: As above patient was admitted, IV fluid, pain management, taken to surgery. Patient had successful recovery and discharged in a stable condition. Instructions were to return to activity but no driving while taking narcotic medication Medication Reconciliation: Completed Patient was given oxycodone 5 mg every 12 hours #10 documented as of this encounter (statuses as of 09/21/2021) [facility] History of Past illness Narrative* Problem Noted Date Resolved Date Encounter for support and coordination of transi tion of care 05/02/2021 07/23/2021 Overview: Hospital discharge summary: Date of admission 05/01/2021 Date of discharge: Facility: [facility] 05/01/2021 presented to the emergency room with acute alcohol intoxication, initial alcohol level 7-8. Acknowledges over the last 5 months drinking 15 packs a day at 8% alcohol (marcin samaniego). Vital signs 96.6 F-78-18-111/73-98%. Appearance was no acute distress. WBC 7.9 Hgb 13.8 HCT 39.7 PLT 306. NA 130 2L K3.7 CL 90 6L CO2 26.0 BUN 20.5H CRE 0.93 GLU 111 Admitted from ER to detox unit Active problem list: 1. Alcohol dependence: Started on phenobarbital, gabapentin as needed dicyclomine as needed, Vistaril as needed, Imodium as needed, trazodone as needed, Zofran as needed, scheduled thiamine and scheduled folic acid. 2. Tobacco abuse: Nicotine patch prescribed, tobacco withheld. 3. Marijuana abuse: Counseled 4. Anxiety depression, PTSD: Continue home medications 5. COPD with home oxygen use: Stable, continue supplements duration O2 with continuous pulse oximetry per patient. 6. Hyponatremia chronic: Stable 7 DVT risk low: Encourage ambulation. Encounter for support and coordination of transi tion of care 05/15/2020 05/02/2021 Overview: HOSPITAL/ER FOLLOW UP Which facility: [facility] Dates of visit: 05/10-05/13/2020 Preadmission evaluation: ER with right-sided abdominal pain over 2-1/2 hours, 10 out of 10. Worse with coughing. States she vomited 20 times the day before, with episodes of diarrhea over the past 2 days. Had used Imodium which improved diarrhea. No known exposures to Covid. Also identified chest pain which started approximately 2:00 that afternoon. Subjective fever and chills, chronic cough that is unchanged. Patient was afebrile with temp of 99.4 Fahrenheit, heart rate of 95, blood pressure 147/92. O2 saturation 94% but patient was started on O2 at 2 L per nasal cannula abdominal exam with severe tenderness over epigastric and right upper quadrant and right lower quadrant. No distention. CBC showed white count of 15.2 with neutrophils of 70. Hemoglobin 14.9, platelet 227, CMP within normal limits except for sodium of 134, glucose 107, total bili 1.5, AST and ALT 5 277, alk phos 122, troponin negative. Lipase 170. Covid rapid test negative. Ethanol 64. Chest x-ray with generalized hyperinflation, no acute findings. CT of abdomen pelvis without contrast demonstrated severe fatty liver, mild hepatomegaly, normal gallbladder, exophytic isodense nodule on the lower pole of the right kidney, mild bilateral fatty groin hernia. Appendix considered normal. Ultrasound of gallbladder demonstrated partially distended gallbladder with a positive sonographic Kennedy sign, no gallstones. Also identified mild perihepatic ascites. In ER patient was given IV Zofran, morphine 4 mg x 2 IV, Ativan 1 mg IV x1. Primary Diagnosis/es: Acute cholecystitis Elevated LFTs Secondary Diagnosis/es: Anxiety depression Hyperlipidemia Chronic tobacco use Chronic alcohol abuse SANA Hypothyroidism COPD with emphysema Chronic back pain PTSD Chronic anemia unknown etiology Gastroesophageal reflux disease Pulmonary embolus Consultants: Surgery: Dr. Gaye Gordon testing done: ----- -Labwork: See above 05/13/2020 WBC 8.9, hemoglobin 11.4, hematocrit 36.8, elevated indices, RDW of 51.0, platelet count 171, absolute neutrophil count elevated at 7.8. Electrolytes all within normal limits except anion gap of 2, BUN of 2, creatinine 0.68 with estimated GFR of 97. Glucose 148, calcium 8.2. Bilirubin normal, AST 162, ALT 139, alk phosphatase 81 normal, total protein and albumin low 6.3, 2.1 respectively ----- -Imaging: As above 05/12/2020 hepatobiliary scan nuclear medicine: No scintigraphic evidence of cholecystitis or biliary obstruction ----- -Cardiac: ----- -Other: ----- Procedures/ Surgery: Surgery: Laparoscopic cholecystectomy with surgical findings of thickened gallbladder wall with areas of gangrene, enlarged liver with fatty infiltration ascites Hospital course: As above patient was admitted, IV fluid, pain management, taken to surgery. Patient had successful recovery and discharged in a stable condition. Instructions were to return to activity but no driving while taking narcotic medication Medication Reconciliation: Completed Patient was given oxycodone 5 mg every 12 hours #10 documented as of this encounter (statuses as of 09/22/2021) [facility] History of Past illness Narrative* Problem Noted Date Resolved Date Encounter for support and coordination of transi tion of care 05/02/2021 07/23/2021 Overview: Hospital discharge summary: Date of admission 05/01/2021 Date of discharge: Facility: [facility] 05/01/2021 presented to the emergency room with acute alcohol intoxication, initial alcohol level 7-8. Acknowledges over the last 5 months drinking 15 packs a day at 8% alcohol (marcin samaniego). Vital signs 96.6 F-78-18-111/73-98%. Appearance was no acute distress. WBC 7.9 Hgb 13.8 HCT 39.7 PLT 306. NA 130 2L K3.7 CL 90 6L CO2 26.0 BUN 20.5H CRE 0.93 GLU 111 Admitted from ER to detox unit Active problem list: 1. Alcohol dependence: Started on phenobarbital, gabapentin as needed dicyclomine as needed, Vistaril as needed, Imodium as needed, trazodone as needed, Zofran as needed, scheduled thiamine and scheduled folic acid. 2. Tobacco abuse: Nicotine patch prescribed, tobacco withheld. 3. Marijuana abuse: Counseled 4. Anxiety depression, PTSD: Continue home medications 5. COPD with home oxygen use: Stable, continue supplements duration O2 with continuous pulse oximetry per patient. 6. Hyponatremia chronic: Stable 7 DVT risk low: Encourage ambulation. Encounter for support and coordination of transi tion of care 05/15/2020 05/02/2021 Overview: HOSPITAL/ER FOLLOW UP Which facility: [facility] Dates of visit: 05/10-05/13/2020 Preadmission evaluation: ER with right-sided abdominal pain over 2-1/2 hours, 10 out of 10. Worse with coughing. States she vomited 20 times the day before, with episodes of diarrhea over the past 2 days. Had used Imodium which improved diarrhea. No known exposures to Covid. Also identified chest pain which started approximately 2:00 that afternoon. Subjective fever and chills, chronic cough that is unchanged. Patient was afebrile with temp of 99.4 Fahrenheit, heart rate of 95, blood pressure 147/92. O2 saturation 94% but patient was started on O2 at 2 L per nasal cannula abdominal exam with severe tenderness over epigastric and right upper quadrant and right lower quadrant. No distention. CBC showed white count of 15.2 with neutrophils of 70. Hemoglobin 14.9, platelet 227, CMP within normal limits except for sodium of 134, glucose 107, total bili 1.5, AST and ALT 5 5/277, alk phos 122, troponin negative. Lipase 170. Covid rapid test negative. Ethanol 64. Chest x-ray with generalized hyperinflation, no acute findings. CT of abdomen pelvis without contrast demonstrated severe fatty liver, mild hepatomegaly, normal gallbladder, exophytic isodense nodule on the lower pole of the right kidney, mild bilateral fatty groin hernia. Appendix considered normal. Ultrasound of gallbladder demonstrated partially distended gallbladder with a positive sonographic Kennedy sign, no gallstones. Also identified mild perihepatic ascites. In ER patient was given IV Zofran, morphine 4 mg x 2 IV, Ativan 1 mg IV x1. Primary Diagnosis/es: Acute cholecystitis Elevated LFTs Secondary Diagnosis/es: Anxiety depression Hyperlipidemia Chronic tobacco use Chronic alcohol abuse SANA Hypothyroidism COPD with emphysema Chronic back pain PTSD Chronic anemia unknown etiology Gastroesophageal reflux disease Pulmonary embolus Consultants: Surgery: Dr. Gaye Gordon testing done: ----- -Labwork: See above 05/13/2020 WBC 8.9, hemoglobin 11.4, hematocrit 36.8, elevated indices, RDW of 51.0, platelet count 171, absolute neutrophil count elevated at 7.8. Electrolytes all within normal limits except anion gap of 2, BUN of 2, creatinine 0.68 with estimated GFR of 97. Glucose 148, calcium 8.2. Bilirubin normal, AST 162, ALT 139, alk phosphatase 81 normal, total protein and albumin low 6.3, 2.1 respectively ----- -Imaging: As above 05/12/2020 hepatobiliary scan nuclear medicine: No scintigraphic evidence of cholecystitis or biliary obstruction ----- -Cardiac: ----- -Other: ----- Procedures/ Surgery: Surgery: Laparoscopic cholecystectomy with surgical findings of thickened gallbladder wall with areas of gangrene, enlarged liver with fatty infiltration ascites Hospital course: As above patient was admitted, IV fluid, pain management, taken to surgery. Patient had successful recovery and discharged in a stable condition. Instructions were to return to activity but no driving while taking narcotic medication Medication Reconciliation: Completed Patient was given oxycodone 5 mg every 12 hours #10 documented as of this encounter (statuses as of 10/02/2021) [facility]11-13-2021 History of Past illness Narrative* Problem Noted Date Resolved Date Encounter for support and coordination of transi tion of care 05/02/2021 07/23/2021 Overview: Hospital discharge summary: Date of admission 05/01/2021 Date of discharge: Facility: [facility] 05/01/2021 presented to the emergency room with acute alcohol intoxication, initial alcohol level 7-8. Acknowledges over the last 5 months drinking 15 packs a day at 8% alcohol (nataidan samaniego). Vital signs 96.6 [id number]/[id number]%. Appearance was no acute distress. WBC 7.9 Hgb 13.8 HCT 39.7 PLT 306. NA 130 2L K3.7 CL 90 6L CO2 26.0 BUN 20.5H CRE 0.93 GLU 111 Admitted from ER to detox unit Active problem list: 1. Alcohol dependence: Started on phenobarbital, gabapentin as needed dicyclomine as needed, Vistaril as needed, Imodium as needed, trazodone as needed, Zofran as needed, scheduled thiamine and scheduled folic acid. 2. Tobacco abuse: Nicotine patch prescribed, tobacco withheld. 3. Marijuana abuse: Counseled 4. Anxiety depression, PTSD: Continue home medications 5. COPD with home oxygen use: Stable, continue supplements duration O2 with continuous pulse oximetry per patient. 6. Hyponatremia chronic: Stable 7 DVT risk low: Encourage ambulation. Encounter for support and coordination of transi tion of care 05/15/2020 05/02/2021 Overview: HOSPITAL/ER FOLLOW UP Which facility: [facility] Dates of visit: 05/10-05/13/2020 Preadmission evaluation: ER with right-sided abdominal pain over 2-1/2 hours, 10 out of 10. Worse with coughing. States she vomited 20 times the day before, with episodes of diarrhea over the past 2 days. Had used Imodium which improved diarrhea. No known exposures to Covid. Also identified chest pain which started approximately 2:00 that afternoon. Subjective fever and chills, chronic cough that is unchanged. Patient was afebrile with temp of 99.4 Fahrenheit, heart rate of 95, blood pressure 147/92. O2 saturation 94% but patient was started on O2 at 2 L per nasal cannula abdominal exam with severe tenderness over epigastric and right upper quadrant and right lower quadrant. No distention. CBC showed white count of 15.2 with neutrophils of 70. Hemoglobin 14.9, platelet 227, CMP within normal limits except for sodium of 134, glucose 107, total bili 1.5, AST and ALT 5 5/277, alk phos 122, troponin negative. Lipase 170. Covid rapid test negative. Ethanol 64. Chest x-ray with generalized hyperinflation, no acute findings. CT of abdomen pelvis without contrast demonstrated severe fatty liver, mild hepatomegaly, normal gallbladder, exophytic isodense nodule on the lower pole of the right kidney, mild bilateral fatty groin hernia. Appendix considered normal. Ultrasound of gallbladder demonstrated partially distended gallbladder with a positive sonographic Kennedy sign, no gallstones. Also identified mild perihepatic ascites. In ER patient was given IV Zofran, morphine 4 mg x 2 IV, Ativan 1 mg IV x1. Primary Diagnosis/es: Acute cholecystitis Elevated LFTs Secondary Diagnosis/es: Anxiety depression Hyperlipidemia Chronic tobacco use Chronic alcohol abuse SANA Hypothyroidism COPD with emphysema Chronic back pain PTSD Chronic anemia unknown etiology Gastroesophageal reflux disease Pulmonary embolus Consultants: Surgery: Dr. Gaye Gordon testing done: ----- -Labwork: See above 05/13/2020 WBC 8.9, hemoglobin 11.4, hematocrit 36.8, elevated indices, RDW of 51.0, platelet count 171, absolute neutrophil count elevated at 7.8. Electrolytes all within normal limits except anion gap of 2, BUN of 2, creatinine 0.68 with estimated GFR of 97. Glucose 148, calcium 8.2. Bilirubin normal, AST 162, ALT 139, alk phosphatase 81 normal, total protein and albumin low 6.3, 2.1 respectively ----- -Imaging: As above 05/12/2020 hepatobiliary scan nuclear medicine: No scintigraphic evidence of cholecystitis or biliary obstruction ----- -Cardiac: ----- -Other: ----- Procedures/ Surgery: Surgery: Laparoscopic cholecystectomy with surgical findings of thickened gallbladder wall with areas of gangrene, enlarged liver with fatty infiltration ascites Hospital course: As above patient was admitted, IV fluid, pain management, taken to surgery. Patient had successful recovery and discharged in a stable condition. Instructions were to return to activity but no driving while taking narcotic medication Medication Reconciliation: Completed Patient was given oxycodone 5 mg every 12 hours #10 documented as of this encounter (statuses as of 10/02/2021) [facility]11-13-2021 History of Past illness Narrative* Problem Noted Date Resolved Date Encounter for support and coordination of transi tion of care 05/02/2021 07/23/2021 Overview: Hospital discharge summary: Date of admission 05/01/2021 Date of discharge: Facility: [facility] 05/01/2021 presented to the emergency room with acute alcohol intoxication, initial alcohol level 7-8. Acknowledges over the last 5 months drinking 15 packs a day at 8% alcohol (marcin samaniego). Vital signs 96.6 [id number]/73-98%. Appearance was no acute distress. WBC 7.9 Hgb 13.8 HCT 39.7 PLT 306. NA 130 2L K3.7 CL 90 6L CO2 26.0 BUN 20.5H CRE 0.93 GLU 111 Admitted from ER to detox unit Active problem list: 1. Alcohol dependence: Started on phenobarbital, gabapentin as needed dicyclomine as needed, Vistaril as needed, Imodium as needed, trazodone as needed, Zofran as needed, scheduled thiamine and scheduled folic acid. 2. Tobacco abuse: Nicotine patch prescribed, tobacco withheld. 3. Marijuana abuse: Counseled 4. Anxiety depression, PTSD: Continue home medications 5. COPD with home oxygen use: Stable, continue supplements duration O2 with continuous pulse oximetry per patient. 6. Hyponatremia chronic: Stable 7 DVT risk low: Encourage ambulation. Encounter for support and coordination of transi tion of care 05/15/2020 05/02/2021 Overview: HOSPITAL/ER FOLLOW UP Which facility: [facility] Dates of visit: 05/10-05/13/2020 Preadmission evaluation: ER with right-sided abdominal pain over 2-1/2 hours, 10 out of 10. Worse with coughing. States she vomited 20 times the day before, with episodes of diarrhea over the past 2 days. Had used Imodium which improved diarrhea. No known exposures to Covid. Also identified chest pain which started approximately 2:00 that afternoon. Subjective fever and chills, chronic cough that is unchanged. Patient was afebrile with temp of 99.4 Fahrenheit, heart rate of 95, blood pressure 147/92. O2 saturation 94% but patient was started on O2 at 2 L per nasal cannula abdominal exam with severe tenderness over epigastric and right upper quadrant and right lower quadrant. No distention. CBC showed white count of 15.2 with neutrophils of 70. Hemoglobin 14.9, platelet 227, CMP within normal limits except for sodium of 134, glucose 107, total bili 1.5, AST and ALT 5 5/277, alk phos 122, troponin negative. Lipase 170. Covid rapid test negative. Ethanol 64. Chest x-ray with generalized hyperinflation, no acute findings. CT of abdomen pelvis without contrast demonstrated severe fatty liver, mild hepatomegaly, normal gallbladder, exophytic isodense nodule on the lower pole of the right kidney, mild bilateral fatty groin hernia. Appendix considered normal. Ultrasound of gallbladder demonstrated partially distended gallbladder with a positive sonographic Kennedy sign, no gallstones. Also identified mild perihepatic ascites. In ER patient was given IV Zofran, morphine 4 mg x 2 IV, Ativan 1 mg IV x1. Primary Diagnosis/es: Acute cholecystitis Elevated LFTs Secondary Diagnosis/es: Anxiety depression Hyperlipidemia Chronic tobacco use Chronic alcohol abuse SANA Hypothyroidism COPD with emphysema Chronic back pain PTSD Chronic anemia unknown etiology Gastroesophageal reflux disease Pulmonary embolus Consultants: Surgery: Dr. Gaye Gordon testing done: ----- -Labwork: See above 05/13/2020 WBC 8.9, hemoglobin 11.4, hematocrit 36.8, elevated indices, RDW of 51.0, platelet count 171, absolute neutrophil count elevated at 7.8. Electrolytes all within normal limits except anion gap of 2, BUN of 2, creatinine 0.68 with estimated GFR of 97. Glucose 148, calcium 8.2. Bilirubin normal, AST 162, ALT 139, alk phosphatase 81 normal, total protein and albumin low 6.3, 2.1 respectively ----- -Imaging: As above 05/12/2020 hepatobiliary scan nuclear medicine: No scintigraphic evidence of cholecystitis or biliary obstruction ----- -Cardiac: ----- -Other: ----- Procedures/ Surgery: Surgery: Laparoscopic cholecystectomy with surgical findings of thickened gallbladder wall with areas of gangrene, enlarged liver with fatty infiltration ascites Hospital course: As above patient was admitted, IV fluid, pain management, taken to surgery. Patient had successful recovery and discharged in a stable condition. Instructions were to return to activity but no driving while taking narcotic medication Medication Reconciliation: Completed Patient was given oxycodone 5 mg every 12 hours #10 documented as of this encounter (statuses as of 10/03/2021) [facility]11-13-2021 History of Past illness Narrative* Problem Noted Date Resolved Date Encounter for support and coordination of transi tion of care 05/02/2021 07/23/2021 Overview: Hospital discharge summary: Date of admission 05/01/2021 Date of discharge: Facility: [facility] 05/01/2021 presented to the emergency room with acute alcohol intoxication, initial alcohol level 7-8. Acknowledges over the last 5 months drinking 15 packs a day at 8% alcohol (marcin samaniego). Vital signs 96.6 [id number]/73-98%. Appearance was no acute distress. WBC 7.9 Hgb 13.8 HCT 39.7 PLT 306. NA 130 2L K3.7 CL 90 6L CO2 26.0 BUN 20.5H CRE 0.93 GLU 111 Admitted from ER to detox unit Active problem list: 1. Alcohol dependence: Started on phenobarbital, gabapentin as needed dicyclomine as needed, Vistaril as needed, Imodium as needed, trazodone as needed, Zofran as needed, scheduled thiamine and scheduled folic acid. 2. Tobacco abuse: Nicotine patch prescribed, tobacco withheld. 3. Marijuana abuse: Counseled 4. Anxiety depression, PTSD: Continue home medications 5. COPD with home oxygen use: Stable, continue supplements duration O2 with continuous pulse oximetry per patient. 6. Hyponatremia chronic: Stable 7 DVT risk low: Encourage ambulation. Encounter for support and coordination of transi tion of care 05/15/2020 05/02/2021 Overview: HOSPITAL/ER FOLLOW UP Which facility: [facility] Dates of visit: 05/10-05/13/2020 Preadmission evaluation: ER with right-sided abdominal pain over 2-1/2 hours, 10 out of 10. Worse with coughing. States she vomited 20 times the day before, with episodes of diarrhea over the past 2 days. Had used Imodium which improved diarrhea. No known exposures to Covid. Also identified chest pain which started approximately 2:00 that afternoon. Subjective fever and chills, chronic cough that is unchanged. Patient was afebrile with temp of 99.4 Fahrenheit, heart rate of 95, blood pressure 147/92. O2 saturation 94% but patient was started on O2 at 2 L per nasal cannula abdominal exam with severe tenderness over epigastric and right upper quadrant and right lower quadrant. No distention. CBC showed white count of 15.2 with neutrophils of 70. Hemoglobin 14.9, platelet 227, CMP within normal limits except for sodium of 134, glucose 107, total bili 1.5, AST and ALT 5 5/277, alk phos 122, troponin negative. Lipase 170. Covid rapid test negative. Ethanol 64. Chest x-ray with generalized hyperinflation, no acute findings. CT of abdomen pelvis without contrast demonstrated severe fatty liver, mild hepatomegaly, normal gallbladder, exophytic isodense nodule on the lower pole of the right kidney, mild bilateral fatty groin hernia. Appendix considered normal. Ultrasound of gallbladder demonstrated partially distended gallbladder with a positive sonographic Kennedy sign, no gallstones. Also identified mild perihepatic ascites. In ER patient was given IV Zofran, morphine 4 mg x 2 IV, Ativan 1 mg IV x1. Primary Diagnosis/es: Acute cholecystitis Elevated LFTs Secondary Diagnosis/es: Anxiety depression Hyperlipidemia Chronic tobacco use Chronic alcohol abuse SANA Hypothyroidism COPD with emphysema Chronic back pain PTSD Chronic anemia unknown etiology Gastroesophageal reflux disease Pulmonary embolus Consultants: Surgery: Dr. Gaye Gordon testing done: ----- -Labwork: See above 05/13/2020 WBC 8.9, hemoglobin 11.4, hematocrit 36.8, elevated indices, RDW of 51.0, platelet count 171, absolute neutrophil count elevated at 7.8. Electrolytes all within normal limits except anion gap of 2, BUN of 2, creatinine 0.68 with estimated GFR of 97. Glucose 148, calcium 8.2. Bilirubin normal, AST 162, ALT 139, alk phosphatase 81 normal, total protein and albumin low 6.3, 2.1 respectively ----- -Imaging: As above 05/12/2020 hepatobiliary scan nuclear medicine: No scintigraphic evidence of cholecystitis or biliary obstruction ----- -Cardiac: ----- -Other: ----- Procedures/ Surgery: Surgery: Laparoscopic cholecystectomy with surgical findings of thickened gallbladder wall with areas of gangrene, enlarged liver with fatty infiltration ascites Hospital course: As above patient was admitted, IV fluid, pain management, taken to surgery. Patient had successful recovery and discharged in a stable condition. Instructions were to return to activity but no driving while taking narcotic medication Medication Reconciliation: Completed Patient was given oxycodone 5 mg every 12 hours #10 documented as of this encounter (statuses as of 10/05/2021) [facility]11-13-2021 History of Past illness Narrative* Problem Noted Date Resolved Date Encounter for support and coordination of transi tion of care 05/02/2021 07/23/2021 Overview: Hospital discharge summary: Date of admission 05/01/2021 Date of discharge: Facility: [facility] 05/01/2021 presented to the emergency room with acute alcohol intoxication, initial alcohol level 7-8. Acknowledges over the last 5 months drinking 15 packs a day at 8% alcohol (marcin samaniego). Vital signs 96.6 [id number]/73-98%. Appearance was no acute distress. WBC 7.9 Hgb 13.8 HCT 39.7 PLT 306. NA 130 2L K3.7 CL 90 6L CO2 26.0 BUN 20.5H CRE 0.93 GLU 111 Admitted from ER to detox unit Active problem list: 1. Alcohol dependence: Started on phenobarbital, gabapentin as needed dicyclomine as needed, Vistaril as needed, Imodium as needed, trazodone as needed, Zofran as needed, scheduled thiamine and scheduled folic acid. 2. Tobacco abuse: Nicotine patch prescribed, tobacco withheld. 3. Marijuana abuse: Counseled 4. Anxiety depression, PTSD: Continue home medications 5. COPD with home oxygen use: Stable, continue supplements duration O2 with continuous pulse oximetry per patient. 6. Hyponatremia chronic: Stable 7 DVT risk low: Encourage ambulation. Encounter for support and coordination of transi tion of care 05/15/2020 05/02/2021 Overview: HOSPITAL/ER FOLLOW UP Which facility: [facility] Dates of visit: 05/10-05/13/2020 Preadmission evaluation: ER with right-sided abdominal pain over 2-1/2 hours, 10 out of 10. Worse with coughing. States she vomited 20 times the day before, with episodes of diarrhea over the past 2 days. Had used Imodium which improved diarrhea. No known exposures to Covid. Also identified chest pain which started approximately 2:00 that afternoon. Subjective fever and chills, chronic cough that is unchanged. Patient was afebrile with temp of 99.4 Fahrenheit, heart rate of 95, blood pressure 147/92. O2 saturation 94% but patient was started on O2 at 2 L per nasal cannula abdominal exam with severe tenderness over epigastric and right upper quadrant and right lower quadrant. No distention. CBC showed white count of 15.2 with neutrophils of 70. Hemoglobin 14.9, platelet 227, CMP within normal limits except for sodium of 134, glucose 107, total bili 1.5, AST and ALT 5 5/277, alk phos 122, troponin negative. Lipase 170. Covid rapid test negative. Ethanol 64. Chest x-ray with generalized hyperinflation, no acute findings. CT of abdomen pelvis without contrast demonstrated severe fatty liver, mild hepatomegaly, normal gallbladder, exophytic isodense nodule on the lower pole of the right kidney, mild bilateral fatty groin hernia. Appendix considered normal. Ultrasound of gallbladder demonstrated partially distended gallbladder with a positive sonographic Kennedy sign, no gallstones. Also identified mild perihepatic ascites. In ER patient was given IV Zofran, morphine 4 mg x 2 IV, Ativan 1 mg IV x1. Primary Diagnosis/es: Acute cholecystitis Elevated LFTs Secondary Diagnosis/es: Anxiety depression Hyperlipidemia Chronic tobacco use Chronic alcohol abuse SANA Hypothyroidism COPD with emphysema Chronic back pain PTSD Chronic anemia unknown etiology Gastroesophageal reflux disease Pulmonary embolus Consultants: Surgery: Dr. Gaye Gordon testing done: ----- -Labwork: See above 05/13/2020 WBC 8.9, hemoglobin 11.4, hematocrit 36.8, elevated indices, RDW of 51.0, platelet count 171, absolute neutrophil count elevated at 7.8. Electrolytes all within normal limits except anion gap of 2, BUN of 2, creatinine 0.68 with estimated GFR of 97. Glucose 148, calcium 8.2. Bilirubin normal, AST 162, ALT 139, alk phosphatase 81 normal, total protein and albumin low 6.3, 2.1 respectively ----- -Imaging: As above 05/12/2020 hepatobiliary scan nuclear medicine: No scintigraphic evidence of cholecystitis or biliary obstruction ----- -Cardiac: ----- -Other: ----- Procedures/ Surgery: Surgery: Laparoscopic cholecystectomy with surgical findings of thickened gallbladder wall with areas of gangrene, enlarged liver with fatty infiltration ascites Hospital course: As above patient was admitted, IV fluid, pain management, taken to surgery. Patient had successful recovery and discharged in a stable condition. Instructions were to return to activity but no driving while taking narcotic medication Medication Reconciliation: Completed Patient was given oxycodone 5 mg every 12 hours #10 documented as of this encounter (statuses as of 10/08/2021) [facility]11-13-2021 History of Past illness Narrative* Problem Noted Date Resolved Date Encounter for support and coordination of transi tion of care 05/02/2021 07/23/2021 Overview: Hospital discharge summary: Date of admission 05/01/2021 Date of discharge: Facility: [facility] 05/01/2021 presented to the emergency room with acute alcohol intoxication, initial alcohol level 7-8. Acknowledges over the last 5 months drinking 15 packs a day at 8% alcohol (marcin samaniego). Vital signs 96.6 [id number]/73-98%. Appearance was no acute distress. WBC 7.9 Hgb 13.8 HCT 39.7 PLT 306. NA 130 2L K3.7 CL 90 6L CO2 26.0 BUN 20.5H CRE 0.93 GLU 111 Admitted from ER to detox unit Active problem list: 1. Alcohol dependence: Started on phenobarbital, gabapentin as needed dicyclomine as needed, Vistaril as needed, Imodium as needed, trazodone as needed, Zofran as needed, scheduled thiamine and scheduled folic acid. 2. Tobacco abuse: Nicotine patch prescribed, tobacco withheld. 3. Marijuana abuse: Counseled 4. Anxiety depression, PTSD: Continue home medications 5. COPD with home oxygen use: Stable, continue supplements duration O2 with continuous pulse oximetry per patient. 6. Hyponatremia chronic: Stable 7 DVT risk low: Encourage ambulation. Encounter for support and coordination of transi tion of care 05/15/2020 05/02/2021 Overview: HOSPITAL/ER FOLLOW UP Which facility: [facility] Dates of visit: 05/10-05/13/2020 Preadmission evaluation: ER with right-sided abdominal pain over 2-1/2 hours, 10 out of 10. Worse with coughing. States she vomited 20 times the day before, with episodes of diarrhea over the past 2 days. Had used Imodium which improved diarrhea. No known exposures to Covid. Also identified chest pain which started approximately 2:00 that afternoon. Subjective fever and chills, chronic cough that is unchanged. Patient was afebrile with temp of 99.4 Fahrenheit, heart rate of 95, blood pressure 147/92. O2 saturation 94% but patient was started on O2 at 2 L per nasal cannula abdominal exam with severe tenderness over epigastric and right upper quadrant and right lower quadrant. No distention. CBC showed white count of 15.2 with neutrophils of 70. Hemoglobin 14.9, platelet 227, CMP within normal limits except for sodium of 134, glucose 107, total bili 1.5, AST and ALT 5 5/277, alk phos 122, troponin negative. Lipase 170. Covid rapid test negative. Ethanol 64. Chest x-ray with generalized hyperinflation, no acute findings. CT of abdomen pelvis without contrast demonstrated severe fatty liver, mild hepatomegaly, normal gallbladder, exophytic isodense nodule on the lower pole of the right kidney, mild bilateral fatty groin hernia. Appendix considered normal. Ultrasound of gallbladder demonstrated partially distended gallbladder with a positive sonographic Kennedy sign, no gallstones. Also identified mild perihepatic ascites. In ER patient was given IV Zofran, morphine 4 mg x 2 IV, Ativan 1 mg IV x1. Primary Diagnosis/es: Acute cholecystitis Elevated LFTs Secondary Diagnosis/es: Anxiety depression Hyperlipidemia Chronic tobacco use Chronic alcohol abuse SANA Hypothyroidism COPD with emphysema Chronic back pain PTSD Chronic anemia unknown etiology Gastroesophageal reflux disease Pulmonary embolus Consultants: Surgery: Dr. Gaye Gordon testing done: ----- -Labwork: See above 05/13/2020 WBC 8.9, hemoglobin 11.4, hematocrit 36.8, elevated indices, RDW of 51.0, platelet count 171, absolute neutrophil count elevated at 7.8. Electrolytes all within normal limits except anion gap of 2, BUN of 2, creatinine 0.68 with estimated GFR of 97. Glucose 148, calcium 8.2. Bilirubin normal, AST 162, ALT 139, alk phosphatase 81 normal, total protein and albumin low 6.3, 2.1 respectively ----- -Imaging: As above 05/12/2020 hepatobiliary scan nuclear medicine: No scintigraphic evidence of cholecystitis or biliary obstruction ----- -Cardiac: ----- -Other: ----- Procedures/ Surgery: Surgery: Laparoscopic cholecystectomy with surgical findings of thickened gallbladder wall with areas of gangrene, enlarged liver with fatty infiltration ascites Hospital course: As above patient was admitted, IV fluid, pain management, taken to surgery. Patient had successful recovery and discharged in a stable condition. Instructions were to return to activity but no driving while taking narcotic medication Medication Reconciliation: Completed Patient was given oxycodone 5 mg every 12 hours #10 documented as of this encounter (statuses as of 10/21/2021) [facility]11-13-2021 History of Past illness Narrative* Problem Noted Date Resolved Date Encounter for support and coordination of transi tion of care 05/02/2021 07/23/2021 Overview: Hospital discharge summary: Date of admission 05/01/2021 Date of discharge: Facility: [facility] 05/01/2021 presented to the emergency room with acute alcohol intoxication, initial alcohol level 7-8. Acknowledges over the last 5 months drinking 15 packs a day at 8% alcohol (marcin samaniego). Vital signs 96.6 [id number]/[id number]%. Appearance was no acute distress. WBC 7.9 Hgb 13.8 HCT 39.7 PLT 306. NA 130 2L K3.7 CL 90 6L CO2 26.0 BUN 20.5H CRE 0.93 GLU 111 Admitted from ER to detox unit Active problem list: 1. Alcohol dependence: Started on phenobarbital, gabapentin as needed dicyclomine as needed, Vistaril as needed, Imodium as needed, trazodone as needed, Zofran as needed, scheduled thiamine and scheduled folic acid. 2. Tobacco abuse: Nicotine patch prescribed, tobacco withheld. 3. Marijuana abuse: Counseled 4. Anxiety depression, PTSD: Continue home medications 5. COPD with home oxygen use: Stable, continue supplements duration O2 with continuous pulse oximetry per patient. 6. Hyponatremia chronic: Stable 7 DVT risk low: Encourage ambulation. Encounter for support and coordination of transi tion of care 05/15/2020 05/02/2021 Overview: HOSPITAL/ER FOLLOW UP Which facility: [facility] Dates of visit: 05/10-05/13/2020 Preadmission evaluation: ER with right-sided abdominal pain over 2-1/2 hours, 10 out of 10. Worse with coughing. States she vomited 20 times the day before, with episodes of diarrhea over the past 2 days. Had used Imodium which improved diarrhea. No known exposures to Covid. Also identified chest pain which started approximately 2:00 that afternoon. Subjective fever and chills, chronic cough that is unchanged. Patient was afebrile with temp of 99.4 Fahrenheit, heart rate of 95, blood pressure 147/92. O2 saturation 94% but patient was started on O2 at 2 L per nasal cannula abdominal exam with severe tenderness over epigastric and right upper quadrant and right lower quadrant. No distention. CBC showed white count of 15.2 with neutrophils of 70. Hemoglobin 14.9, platelet 227, CMP within normal limits except for sodium of 134, glucose 107, total bili 1.5, AST and ALT 5 5/277, alk phos 122, troponin negative. Lipase 170. Covid rapid test negative. Ethanol 64. Chest x-ray with generalized hyperinflation, no acute findings. CT of abdomen pelvis without contrast demonstrated severe fatty liver, mild hepatomegaly, normal gallbladder, exophytic isodense nodule on the lower pole of the right kidney, mild bilateral fatty groin hernia. Appendix considered normal. Ultrasound of gallbladder demonstrated partially distended gallbladder with a positive sonographic Kennedy sign, no gallstones. Also identified mild perihepatic ascites. In ER patient was given IV Zofran, morphine 4 mg x 2 IV, Ativan 1 mg IV x1. Primary Diagnosis/es: Acute cholecystitis Elevated LFTs Secondary Diagnosis/es: Anxiety depression Hyperlipidemia Chronic tobacco use Chronic alcohol abuse ASNA Hypothyroidism COPD with emphysema Chronic back pain PTSD Chronic anemia unknown etiology Gastroesophageal reflux disease Pulmonary embolus Consultants: Surgery: Dr. Gaye Gordon testing done: ----- -Labwork: See above 05/13/2020 WBC 8.9, hemoglobin 11.4, hematocrit 36.8, elevated indices, RDW of 51.0, platelet count 171, absolute neutrophil count elevated at 7.8. Electrolytes all within normal limits except anion gap of 2, BUN of 2, creatinine 0.68 with estimated GFR of 97. Glucose 148, calcium 8.2. Bilirubin normal, AST 162, ALT 139, alk phosphatase 81 normal, total protein and albumin low 6.3, 2.1 respectively ----- -Imaging: As above 05/12/2020 hepatobiliary scan nuclear medicine: No scintigraphic evidence of cholecystitis or biliary obstruction ----- -Cardiac: ----- -Other: ----- Procedures/ Surgery: Surgery: Laparoscopic cholecystectomy with surgical findings of thickened gallbladder wall with areas of gangrene, enlarged liver with fatty infiltration ascites Hospital course: As above patient was admitted, IV fluid, pain management, taken to surgery. Patient had successful recovery and discharged in a stable condition. Instructions were to return to activity but no driving while taking narcotic medication Medication Reconciliation: Completed Patient was given oxycodone 5 mg every 12 hours #10 documented as of this encounter (statuses as of 10/21/2021) [facility]11-13-2021 History of Past illness Narrative* Problem Noted Date Resolved Date Encounter for support and coordination of transi tion of care 05/02/2021 07/23/2021 Overview: Hospital discharge summary: Date of admission 05/01/2021 Date of discharge: Facility: [facility] 05/01/2021 presented to the emergency room with acute alcohol intoxication, initial alcohol level 7-8. Acknowledges over the last 5 months drinking 15 packs a day at 8% alcohol (nataidan samaniego). Vital signs 96.6 [id number]/73-98%. Appearance was no acute distress. WBC 7.9 Hgb 13.8 HCT 39.7 PLT 306. NA 130 2L K3.7 CL 90 6L CO2 26.0 BUN 20.5H CRE 0.93 GLU 111 Admitted from ER to detox unit Active problem list: 1. Alcohol dependence: Started on phenobarbital, gabapentin as needed dicyclomine as needed, Vistaril as needed, Imodium as needed, trazodone as needed, Zofran as needed, scheduled thiamine and scheduled folic acid. 2. Tobacco abuse: Nicotine patch prescribed, tobacco withheld. 3. Marijuana abuse: Counseled 4. Anxiety depression, PTSD: Continue home medications 5. COPD with home oxygen use: Stable, continue supplements duration O2 with continuous pulse oximetry per patient. 6. Hyponatremia chronic: Stable 7 DVT risk low: Encourage ambulation. Encounter for support and coordination of transi tion of care 05/15/2020 05/02/2021 Overview: HOSPITAL/ER FOLLOW UP Which facility: [facility] Dates of visit: 05/10-05/13/2020 Preadmission evaluation: ER with right-sided abdominal pain over 2-1/2 hours, 10 out of 10. Worse with coughing. States she vomited 20 times the day before, with episodes of diarrhea over the past 2 days. Had used Imodium which improved diarrhea. No known exposures to Covid. Also identified chest pain which started approximately 2:00 that afternoon. Subjective fever and chills, chronic cough that is unchanged. Patient was afebrile with temp of 99.4 Fahrenheit, heart rate of 95, blood pressure 147/92. O2 saturation 94% but patient was started on O2 at 2 L per nasal cannula abdominal exam with severe tenderness over epigastric and right upper quadrant and right lower quadrant. No distention. CBC showed white count of 15.2 with neutrophils of 70. Hemoglobin 14.9, platelet 227, CMP within normal limits except for sodium of 134, glucose 107, total bili 1.5, AST and ALT 5 5/277, alk phos 122, troponin negative. Lipase 170. Covid rapid test negative. Ethanol 64. Chest x-ray with generalized hyperinflation, no acute findings. CT of abdomen pelvis without contrast demonstrated severe fatty liver, mild hepatomegaly, normal gallbladder, exophytic isodense nodule on the lower pole of the right kidney, mild bilateral fatty groin hernia. Appendix considered normal. Ultrasound of gallbladder demonstrated partially distended gallbladder with a positive sonographic Kennedy sign, no gallstones. Also identified mild perihepatic ascites. In ER patient was given IV Zofran, morphine 4 mg x 2 IV, Ativan 1 mg IV x1. Primary Diagnosis/es: Acute cholecystitis Elevated LFTs Secondary Diagnosis/es: Anxiety depression Hyperlipidemia Chronic tobacco use Chronic alcohol abuse SANA Hypothyroidism COPD with emphysema Chronic back pain PTSD Chronic anemia unknown etiology Gastroesophageal reflux disease Pulmonary embolus Consultants: Surgery: Dr. Gaye Gordon testing done: ----- -Labwork: See above 05/13/2020 WBC 8.9, hemoglobin 11.4, hematocrit 36.8, elevated indices, RDW of 51.0, platelet count 171, absolute neutrophil count elevated at 7.8. Electrolytes all within normal limits except anion gap of 2, BUN of 2, creatinine 0.68 with estimated GFR of 97. Glucose 148, calcium 8.2. Bilirubin normal, AST 162, ALT 139, alk phosphatase 81 normal, total protein and albumin low 6.3, 2.1 respectively ----- -Imaging: As above 05/12/2020 hepatobiliary scan nuclear medicine: No scintigraphic evidence of cholecystitis or biliary obstruction ----- -Cardiac: ----- -Other: ----- Procedures/ Surgery: Surgery: Laparoscopic cholecystectomy with surgical findings of thickened gallbladder wall with areas of gangrene, enlarged liver with fatty infiltration ascites Hospital course: As above patient was admitted, IV fluid, pain management, taken to surgery. Patient had successful recovery and discharged in a stable condition. Instructions were to return to activity but no driving while taking narcotic medication Medication Reconciliation: Completed Patient was given oxycodone 5 mg every 12 hours #10 documented as of this encounter (statuses as of 10/23/2021) [facility]11-13-2021 History of Past illness Narrative* Problem Noted Date Resolved Date Encounter for support and coordination of transi tion of care 05/02/2021 07/23/2021 Overview: Hospital discharge summary: Date of admission 05/01/2021 Date of discharge: Facility: [facility] 05/01/2021 presented to the emergency room with acute alcohol intoxication, initial alcohol level 7-8. Acknowledges over the last 5 months drinking 15 packs a day at 8% alcohol (natty daddy). Vital signs 96.6 [id number]/73-98%. Appearance was no acute distress. WBC 7.9 Hgb 13.8 HCT 39.7 PLT 306. NA 130 2L K3.7 CL 90 6L CO2 26.0 BUN 20.5H CRE 0.93 GLU 111 Admitted from ER to detox unit Active problem list: 1. Alcohol dependence: Started on phenobarbital, gabapentin as needed dicyclomine as needed, Vistaril as needed, Imodium as needed, trazodone as needed, Zofran as needed, scheduled thiamine and scheduled folic acid. 2. Tobacco abuse: Nicotine patch prescribed, tobacco withheld. 3. Marijuana abuse: Counseled 4. Anxiety depression, PTSD: Continue home medications 5. COPD with home oxygen use: Stable, continue supplements duration O2 with continuous pulse oximetry per patient. 6. Hyponatremia chronic: Stable 7 DVT risk low: Encourage ambulation. Encounter for support and coordination of transi tion of care 05/15/2020 05/02/2021 Overview: HOSPITAL/ER FOLLOW UP Which facility: [facility] Dates of visit: 05/10-05/13/2020 Preadmission evaluation: ER with right-sided abdominal pain over 2-1/2 hours, 10 out of 10. Worse with coughing. States she vomited 20 times the day before, with episodes of diarrhea over the past 2 days. Had used Imodium which improved diarrhea. No known exposures to Covid. Also identified chest pain which started approximately 2:00 that afternoon. Subjective fever and chills, chronic cough that is unchanged. Patient was afebrile with temp of 99.4 Fahrenheit, heart rate of 95, blood pressure 147/92. O2 saturation 94% but patient was started on O2 at 2 L per nasal cannula abdominal exam with severe tenderness over epigastric and right upper quadrant and right lower quadrant. No distention. CBC showed white count of 15.2 with neutrophils of 70. Hemoglobin 14.9, platelet 227, CMP within normal limits except for sodium of 134, glucose 107, total bili 1.5, AST and ALT 5 5/277, alk phos 122, troponin negative. Lipase 170. Covid rapid test negative. Ethanol 64. Chest x-ray with generalized hyperinflation, no acute findings. CT of abdomen pelvis without contrast demonstrated severe fatty liver, mild hepatomegaly, normal gallbladder, exophytic isodense nodule on the lower pole of the right kidney, mild bilateral fatty groin hernia. Appendix considered normal. Ultrasound of gallbladder demonstrated partially distended gallbladder with a positive sonographic Kennedy sign, no gallstones. Also identified mild perihepatic ascites. In ER patient was given IV Zofran, morphine 4 mg x 2 IV, Ativan 1 mg IV x1. Primary Diagnosis/es: Acute cholecystitis Elevated LFTs Secondary Diagnosis/es: Anxiety depression Hyperlipidemia Chronic tobacco use Chronic alcohol abuse SANA Hypothyroidism COPD with emphysema Chronic back pain PTSD Chronic anemia unknown etiology Gastroesophageal reflux disease Pulmonary embolus Consultants: Surgery: Dr. Gaye Gordon testing done: ----- -Labwork: See above 05/13/2020 WBC 8.9, hemoglobin 11.4, hematocrit 36.8, elevated indices, RDW of 51.0, platelet count 171, absolute neutrophil count elevated at 7.8. Electrolytes all within normal limits except anion gap of 2, BUN of 2, creatinine 0.68 with estimated GFR of 97. Glucose 148, calcium 8.2. Bilirubin normal, AST 162, ALT 139, alk phosphatase 81 normal, total protein and albumin low 6.3, 2.1 respectively ----- -Imaging: As above 05/12/2020 hepatobiliary scan nuclear medicine: No scintigraphic evidence of cholecystitis or biliary obstruction ----- -Cardiac: ----- -Other: ----- Procedures/ Surgery: Surgery: Laparoscopic cholecystectomy with surgical findings of thickened gallbladder wall with areas of gangrene, enlarged liver with fatty infiltration ascites Hospital course: As above patient was admitted, IV fluid, pain management, taken to surgery. Patient had successful recovery and discharged in a stable condition. Instructions were to return to activity but no driving while taking narcotic medication Medication Reconciliation: Completed Patient was given oxycodone 5 mg every 12 hours #10 documented as of this encounter (statuses as of 11/06/2021) [facility]11-13-2021 History of Past illness Narrative* Problem Noted Date Resolved Date Encounter for support and coordination of transi tion of care 05/02/2021 07/23/2021 Overview: Hospital discharge summary: Date of admission 05/01/2021 Date of discharge: Facility: [facility] 05/01/2021 presented to the emergency room with acute alcohol intoxication, initial alcohol level 7-8. Acknowledges over the last 5 months drinking 15 packs a day at 8% alcohol (marcin samaniego). Vital signs 96.6 [id number]/73-98%. Appearance was no acute distress. WBC 7.9 Hgb 13.8 HCT 39.7 PLT 306. NA 130 2L K3.7 CL 90 6L CO2 26.0 BUN 20.5H CRE 0.93 GLU 111 Admitted from ER to detox unit Active problem list: 1. Alcohol dependence: Started on phenobarbital, gabapentin as needed dicyclomine as needed, Vistaril as needed, Imodium as needed, trazodone as needed, Zofran as needed, scheduled thiamine and scheduled folic acid. 2. Tobacco abuse: Nicotine patch prescribed, tobacco withheld. 3. Marijuana abuse: Counseled 4. Anxiety depression, PTSD: Continue home medications 5. COPD with home oxygen use: Stable, continue supplements duration O2 with continuous pulse oximetry per patient. 6. Hyponatremia chronic: Stable 7 DVT risk low: Encourage ambulation. Encounter for support and coordination of transi tion of care 05/15/2020 05/02/2021 Overview: HOSPITAL/ER FOLLOW UP Which facility: [facility] Dates of visit: 05/10-05/13/2020 Preadmission evaluation: ER with right-sided abdominal pain over 2-1/2 hours, 10 out of 10. Worse with coughing. States she vomited 20 times the day before, with episodes of diarrhea over the past 2 days. Had used Imodium which improved diarrhea. No known exposures to Covid. Also identified chest pain which started approximately 2:00 that afternoon. Subjective fever and chills, chronic cough that is unchanged. Patient was afebrile with temp of 99.4 Fahrenheit, heart rate of 95, blood pressure 147/92. O2 saturation 94% but patient was started on O2 at 2 L per nasal cannula abdominal exam with severe tenderness over epigastric and right upper quadrant and right lower quadrant. No distention. CBC showed white count of 15.2 with neutrophils of 70. Hemoglobin 14.9, platelet 227, CMP within normal limits except for sodium of 134, glucose 107, total bili 1.5, AST and ALT 5 5/277, alk phos 122, troponin negative. Lipase 170. Covid rapid test negative. Ethanol 64. Chest x-ray with generalized hyperinflation, no acute findings. CT of abdomen pelvis without contrast demonstrated severe fatty liver, mild hepatomegaly, normal gallbladder, exophytic isodense nodule on the lower pole of the right kidney, mild bilateral fatty groin hernia. Appendix considered normal. Ultrasound of gallbladder demonstrated partially distended gallbladder with a positive sonographic Kennedy sign, no gallstones. Also identified mild perihepatic ascites. In ER patient was given IV Zofran, morphine 4 mg x 2 IV, Ativan 1 mg IV x1. Primary Diagnosis/es: Acute cholecystitis Elevated LFTs Secondary Diagnosis/es: Anxiety depression Hyperlipidemia Chronic tobacco use Chronic alcohol abuse SANA Hypothyroidism COPD with emphysema Chronic back pain PTSD Chronic anemia unknown etiology Gastroesophageal reflux disease Pulmonary embolus Consultants: Surgery: Dr. Gaye Gordon testing done: ----- -Labwork: See above 05/13/2020 WBC 8.9, hemoglobin 11.4, hematocrit 36.8, elevated indices, RDW of 51.0, platelet count 171, absolute neutrophil count elevated at 7.8. Electrolytes all within normal limits except anion gap of 2, BUN of 2, creatinine 0.68 with estimated GFR of 97. Glucose 148, calcium 8.2. Bilirubin normal, AST 162, ALT 139, alk phosphatase 81 normal, total protein and albumin low 6.3, 2.1 respectively ----- -Imaging: As above 05/12/2020 hepatobiliary scan nuclear medicine: No scintigraphic evidence of cholecystitis or biliary obstruction ----- -Cardiac: ----- -Other: ----- Procedures/ Surgery: Surgery: Laparoscopic cholecystectomy with surgical findings of thickened gallbladder wall with areas of gangrene, enlarged liver with fatty infiltration ascites Hospital course: As above patient was admitted, IV fluid, pain management, taken to surgery. Patient had successful recovery and discharged in a stable condition. Instructions were to return to activity but no driving while taking narcotic medication Medication Reconciliation: Completed Patient was given oxycodone 5 mg every 12 hours #10 documented as of this encounter (statuses as of 11/06/2021) [facility]11-13-2021 History of Past illness Narrative* Problem Noted Date Resolved Date Encounter for support and coordination of transi tion of care 05/02/2021 07/23/2021 Overview: Hospital discharge summary: Date of admission 05/01/2021 Date of discharge: Facility: [facility] 05/01/2021 presented to the emergency room with acute alcohol intoxication, initial alcohol level 7-8. Acknowledges over the last 5 months drinking 15 packs a day at 8% alcohol (marcin samaniego). Vital signs 96.6 [id number]/73-98%. Appearance was no acute distress. WBC 7.9 Hgb 13.8 HCT 39.7 PLT 306. NA 130 2L K3.7 CL 90 6L CO2 26.0 BUN 20.5H CRE 0.93 GLU 111 Admitted from ER to detox unit Active problem list: 1. Alcohol dependence: Started on phenobarbital, gabapentin as needed dicyclomine as needed, Vistaril as needed, Imodium as needed, trazodone as needed, Zofran as needed, scheduled thiamine and scheduled folic acid. 2. Tobacco abuse: Nicotine patch prescribed, tobacco withheld. 3. Marijuana abuse: Counseled 4. Anxiety depression, PTSD: Continue home medications 5. COPD with home oxygen use: Stable, continue supplements duration O2 with continuous pulse oximetry per patient. 6. Hyponatremia chronic: Stable 7 DVT risk low: Encourage ambulation. Encounter for support and coordination of transi tion of care 05/15/2020 05/02/2021 Overview: HOSPITAL/ER FOLLOW UP Which facility: [facility] Dates of visit: 05/10-05/13/2020 Preadmission evaluation: ER with right-sided abdominal pain over 2-1/2 hours, 10 out of 10. Worse with coughing. States she vomited 20 times the day before, with episodes of diarrhea over the past 2 days. Had used Imodium which improved diarrhea. No known exposures to Covid. Also identified chest pain which started approximately 2:00 that afternoon. Subjective fever and chills, chronic cough that is unchanged. Patient was afebrile with temp of 99.4 Fahrenheit, heart rate of 95, blood pressure 147/92. O2 saturation 94% but patient was started on O2 at 2 L per nasal cannula abdominal exam with severe tenderness over epigastric and right upper quadrant and right lower quadrant. No distention. CBC showed white count of 15.2 with neutrophils of 70. Hemoglobin 14.9, platelet 227, CMP within normal limits except for sodium of 134, glucose 107, total bili 1.5, AST and ALT 5 5/277, alk phos 122, troponin negative. Lipase 170. Covid rapid test negative. Ethanol 64. Chest x-ray with generalized hyperinflation, no acute findings. CT of abdomen pelvis without contrast demonstrated severe fatty liver, mild hepatomegaly, normal gallbladder, exophytic isodense nodule on the lower pole of the right kidney, mild bilateral fatty groin hernia. Appendix considered normal. Ultrasound of gallbladder demonstrated partially distended gallbladder with a positive sonographic Kennedy sign, no gallstones. Also identified mild perihepatic ascites. In ER patient was given IV Zofran, morphine 4 mg x 2 IV, Ativan 1 mg IV x1. Primary Diagnosis/es: Acute cholecystitis Elevated LFTs Secondary Diagnosis/es: Anxiety depression Hyperlipidemia Chronic tobacco use Chronic alcohol abuse SANA Hypothyroidism COPD with emphysema Chronic back pain PTSD Chronic anemia unknown etiology Gastroesophageal reflux disease Pulmonary embolus Consultants: Surgery: Dr. Gaye Gordon testing done: ----- -Labwork: See above 05/13/2020 WBC 8.9, hemoglobin 11.4, hematocrit 36.8, elevated indices, RDW of 51.0, platelet count 171, absolute neutrophil count elevated at 7.8. Electrolytes all within normal limits except anion gap of 2, BUN of 2, creatinine 0.68 with estimated GFR of 97. Glucose 148, calcium 8.2. Bilirubin normal, AST 162, ALT 139, alk phosphatase 81 normal, total protein and albumin low 6.3, 2.1 respectively ----- -Imaging: As above 05/12/2020 hepatobiliary scan nuclear medicine: No scintigraphic evidence of cholecystitis or biliary obstruction ----- -Cardiac: ----- -Other: ----- Procedures/ Surgery: Surgery: Laparoscopic cholecystectomy with surgical findings of thickened gallbladder wall with areas of gangrene, enlarged liver with fatty infiltration ascites Hospital course: As above patient was admitted, IV fluid, pain management, taken to surgery. Patient had successful recovery and discharged in a stable condition. Instructions were to return to activity but no driving while taking narcotic medication Medication Reconciliation: Completed Patient was given oxycodone 5 mg every 12 hours #10 documented as of this encounter (statuses as of 11/11/2021) [facility]11-13-2021 History of Past illness Narrative* Problem Noted Date Resolved Date Encounter for support and coordination of transi tion of care 05/02/2021 07/23/2021 Overview: Hospital discharge summary: Date of admission 05/01/2021 Date of discharge: Facility: [facility] 05/01/2021 presented to the emergency room with acute alcohol intoxication, initial alcohol level 7-8. Acknowledges over the last 5 months drinking 15 packs a day at 8% alcohol (marcin samaniego). Vital signs 96.6 [id number]/[id number]%. Appearance was no acute distress. WBC 7.9 Hgb 13.8 HCT 39.7 PLT 306. NA 130 2L K3.7 CL 90 6L CO2 26.0 BUN 20.5H CRE 0.93 GLU 111 Admitted from ER to detox unit Active problem list: 1. Alcohol dependence: Started on phenobarbital, gabapentin as needed dicyclomine as needed, Vistaril as needed, Imodium as needed, trazodone as needed, Zofran as needed, scheduled thiamine and scheduled folic acid. 2. Tobacco abuse: Nicotine patch prescribed, tobacco withheld. 3. Marijuana abuse: Counseled 4. Anxiety depression, PTSD: Continue home medications 5. COPD with home oxygen use: Stable, continue supplements duration O2 with continuous pulse oximetry per patient. 6. Hyponatremia chronic: Stable 7 DVT risk low: Encourage ambulation. Mild protein-calorie malnutrition 08/26/2020 11/12/2021 Encounter for support and coordination of transi tion of care 05/15/2020 05/02/2021 Overview: HOSPITAL/ER FOLLOW UP Which facility: [facility] Dates of visit: 05/10-05/13/2020 Preadmission evaluation: ER with right-sided abdominal pain over 2-1/2 hours, 10 out of 10. Worse with coughing. States she vomited 20 times the day before, with episodes of diarrhea over the past 2 days. Had used Imodium which improved diarrhea. No known exposures to Covid. Also identified chest pain which started approximately 2:00 that afternoon. Subjective fever and chills, chronic cough that is unchanged. Patient was afebrile with temp of 99.4 Fahrenheit, heart rate of 95, blood pressure 147/92. O2 saturation 94% but patient was started on O2 at 2 L per nasal cannula abdominal exam with severe tenderness over epigastric and right upper quadrant and right lower quadrant. No distention. CBC showed white count of 15.2 with neutrophils of 70. Hemoglobin 14.9, platelet 227, CMP within normal limits except for sodium of 134, glucose 107, total bili 1.5, AST and ALT 5 5/277, alk phos 122, troponin negative. Lipase 170. Covid rapid test negative. Ethanol 64. Chest x-ray with generalized hyperinflation, no acute findings. CT of abdomen pelvis without contrast demonstrated severe fatty liver, mild hepatomegaly, normal gallbladder, exophytic isodense nodule on the lower pole of the right kidney, mild bilateral fatty groin hernia. Appendix considered normal. Ultrasound of gallbladder demonstrated partially distended gallbladder with a positive sonographic Kennedy sign, no gallstones. Also identified mild perihepatic ascites. In ER patient was given IV Zofran, morphine 4 mg x 2 IV, Ativan 1 mg IV x1. Primary Diagnosis/es: Acute cholecystitis Elevated LFTs Secondary Diagnosis/es: Anxiety depression Hyperlipidemia Chronic tobacco use Chronic alcohol abuse SANA Hypothyroidism COPD with emphysema Chronic back pain PTSD Chronic anemia unknown etiology Gastroesophageal reflux disease Pulmonary embolus Consultants: Surgery: Dr. Gaye Gordon testing done: ----- -Labwork: See above 05/13/2020 WBC 8.9, hemoglobin 11.4, hematocrit 36.8, elevated indices, RDW of 51.0, platelet count 171, absolute neutrophil count elevated at 7.8. Electrolytes all within normal limits except anion gap of 2, BUN of 2, creatinine 0.68 with estimated GFR of 97. Glucose 148, calcium 8.2. Bilirubin normal, AST 162, ALT 139, alk phosphatase 81 normal, total protein and albumin low 6.3, 2.1 respectively ----- -Imaging: As above 05/12/2020 hepatobiliary scan nuclear medicine: No scintigraphic evidence of cholecystitis or biliary obstruction ----- -Cardiac: ----- -Other: ----- Procedures/ Surgery: Surgery: Laparoscopic cholecystectomy with surgical findings of thickened gallbladder wall with areas of gangrene, enlarged liver with fatty infiltration ascites Hospital course: As above patient was admitted, IV fluid, pain management, taken to surgery. Patient had successful recovery and discharged in a stable condition. Instructions were to return to activity but no driving while taking narcotic medication Medication Reconciliation: Completed Patient was given oxycodone 5 mg every 12 hours #10 documented as of this encounter (statuses as of 11/13/2021) [facility]11-13-2021 History of Past illness Narrative* Problem Noted Date Resolved Date Encounter for support and coordination of transi tion of care 05/02/2021 07/23/2021 Overview: Hospital discharge summary: Date of admission 05/01/2021 Date of discharge: Facility: [facility] 05/01/2021 presented to the emergency room with acute alcohol intoxication, initial alcohol level 7-8. Acknowledges over the last 5 months drinking 15 packs a day at 8% alcohol (nataidan samaniego). Vital signs 96.6 [id number]/73-98%. Appearance was no acute distress. WBC 7.9 Hgb 13.8 HCT 39.7 PLT 306. NA 130 2L K3.7 CL 90 6L CO2 26.0 BUN 20.5H CRE 0.93 GLU 111 Admitted from ER to detox unit Active problem list: 1. Alcohol dependence: Started on phenobarbital, gabapentin as needed dicyclomine as needed, Vistaril as needed, Imodium as needed, trazodone as needed, Zofran as needed, scheduled thiamine and scheduled folic acid. 2. Tobacco abuse: Nicotine patch prescribed, tobacco withheld. 3. Marijuana abuse: Counseled 4. Anxiety depression, PTSD: Continue home medications 5. COPD with home oxygen use: Stable, continue supplements duration O2 with continuous pulse oximetry per patient. 6. Hyponatremia chronic: Stable 7 DVT risk low: Encourage ambulation. Mild protein-calorie malnutrition 08/26/2020 11/12/2021 Encounter for support and coordination of transi tion of care 05/15/2020 05/02/2021 Overview: HOSPITAL/ER FOLLOW UP Which facility: [facility] Dates of visit: 05/10-05/13/2020 Preadmission evaluation: ER with right-sided abdominal pain over 2-1/2 hours, 10 out of 10. Worse with coughing. States she vomited 20 times the day before, with episodes of diarrhea over the past 2 days. Had used Imodium which improved diarrhea. No known exposures to Covid. Also identified chest pain which started approximately 2:00 that afternoon. Subjective fever and chills, chronic cough that is unchanged. Patient was afebrile with temp of 99.4 Fahrenheit, heart rate of 95, blood pressure 147/92. O2 saturation 94% but patient was started on O2 at 2 L per nasal cannula abdominal exam with severe tenderness over epigastric and right upper quadrant and right lower quadrant. No distention. CBC showed white count of 15.2 with neutrophils of 70. Hemoglobin 14.9, platelet 227, CMP within normal limits except for sodium of 134, glucose 107, total bili 1.5, AST and ALT 5 5/277, alk phos 122, troponin negative. Lipase 170. Covid rapid test negative. Ethanol 64. Chest x-ray with generalized hyperinflation, no acute findings. CT of abdomen pelvis without contrast demonstrated severe fatty liver, mild hepatomegaly, normal gallbladder, exophytic isodense nodule on the lower pole of the right kidney, mild bilateral fatty groin hernia. Appendix considered normal. Ultrasound of gallbladder demonstrated partially distended gallbladder with a positive sonographic Kennedy sign, no gallstones. Also identified mild perihepatic ascites. In ER patient was given IV Zofran, morphine 4 mg x 2 IV, Ativan 1 mg IV x1. Primary Diagnosis/es: Acute cholecystitis Elevated LFTs Secondary Diagnosis/es: Anxiety depression Hyperlipidemia Chronic tobacco use Chronic alcohol abuse SANA Hypothyroidism COPD with emphysema Chronic back pain PTSD Chronic anemia unknown etiology Gastroesophageal reflux disease Pulmonary embolus Consultants: Surgery: Dr. Gaye Gordon testing done: ----- -Labwork: See above 05/13/2020 WBC 8.9, hemoglobin 11.4, hematocrit 36.8, elevated indices, RDW of 51.0, platelet count 171, absolute neutrophil count elevated at 7.8. Electrolytes all within normal limits except anion gap of 2, BUN of 2, creatinine 0.68 with estimated GFR of 97. Glucose 148, calcium 8.2. Bilirubin normal, AST 162, ALT 139, alk phosphatase 81 normal, total protein and albumin low 6.3, 2.1 respectively ----- -Imaging: As above 05/12/2020 hepatobiliary scan nuclear medicine: No scintigraphic evidence of cholecystitis or biliary obstruction ----- -Cardiac: ----- -Other: ----- Procedures/ Surgery: Surgery: Laparoscopic cholecystectomy with surgical findings of thickened gallbladder wall with areas of gangrene, enlarged liver with fatty infiltration ascites Hospital course: As above patient was admitted, IV fluid, pain management, taken to surgery. Patient had successful recovery and discharged in a stable condition. Instructions were to return to activity but no driving while taking narcotic medication Medication Reconciliation: Completed Patient was given oxycodone 5 mg every 12 hours #10 documented as of this encounter (statuses as of 11/23/2021) [facility]11-13-2021 History of Past illness Narrative* Problem Noted Date Resolved Date Encounter for support and coordination of transi tion of care 05/02/2021 07/23/2021 Overview: Hospital discharge summary: Date of admission 05/01/2021 Date of discharge: Facility: [facility] 05/01/2021 presented to the emergency room with acute alcohol intoxication, initial alcohol level 7-8. Acknowledges over the last 5 months drinking 15 packs a day at 8% alcohol (marcin samaniego). Vital signs 96.6 [id number]/73-98%. Appearance was no acute distress. WBC 7.9 Hgb 13.8 HCT 39.7 PLT 306. NA 130 2L K3.7 CL 90 6L CO2 26.0 BUN 20.5H CRE 0.93 GLU 111 Admitted from ER to detox unit Active problem list: 1. Alcohol dependence: Started on phenobarbital, gabapentin as needed dicyclomine as needed, Vistaril as needed, Imodium as needed, trazodone as needed, Zofran as needed, scheduled thiamine and scheduled folic acid. 2. Tobacco abuse: Nicotine patch prescribed, tobacco withheld. 3. Marijuana abuse: Counseled 4. Anxiety depression, PTSD: Continue home medications 5. COPD with home oxygen use: Stable, continue supplements duration O2 with continuous pulse oximetry per patient. 6. Hyponatremia chronic: Stable 7 DVT risk low: Encourage ambulation. Mild protein-calorie malnutrition 08/26/2020 11/12/2021 Encounter for support and coordination of transi tion of care 05/15/2020 05/02/2021 Overview: HOSPITAL/ER FOLLOW UP Which facility: [facility] Dates of visit: 05/10-05/13/2020 Preadmission evaluation: ER with right-sided abdominal pain over 2-1/2 hours, 10 out of 10. Worse with coughing. States she vomited 20 times the day before, with episodes of diarrhea over the past 2 days. Had used Imodium which improved diarrhea. No known exposures to Covid. Also identified chest pain which started approximately 2:00 that afternoon. Subjective fever and chills, chronic cough that is unchanged. Patient was afebrile with temp of 99.4 Fahrenheit, heart rate of 95, blood pressure 147/92. O2 saturation 94% but patient was started on O2 at 2 L per nasal cannula abdominal exam with severe tenderness over epigastric and right upper quadrant and right lower quadrant. No distention. CBC showed white count of 15.2 with neutrophils of 70. Hemoglobin 14.9, platelet 227, CMP within normal limits except for sodium of 134, glucose 107, total bili 1.5, AST and ALT 5 5/277, alk phos 122, troponin negative. Lipase 170. Covid rapid test negative. Ethanol 64. Chest x-ray with generalized hyperinflation, no acute findings. CT of abdomen pelvis without contrast demonstrated severe fatty liver, mild hepatomegaly, normal gallbladder, exophytic isodense nodule on the lower pole of the right kidney, mild bilateral fatty groin hernia. Appendix considered normal. Ultrasound of gallbladder demonstrated partially distended gallbladder with a positive sonographic Kennedy sign, no gallstones. Also identified mild perihepatic ascites. In ER patient was given IV Zofran, morphine 4 mg x 2 IV, Ativan 1 mg IV x1. Primary Diagnosis/es: Acute cholecystitis Elevated LFTs Secondary Diagnosis/es: Anxiety depression Hyperlipidemia Chronic tobacco use Chronic alcohol abuse SANA Hypothyroidism COPD with emphysema Chronic back pain PTSD Chronic anemia unknown etiology Gastroesophageal reflux disease Pulmonary embolus Consultants: Surgery: Dr. Gaye Gordon testing done: ----- -Labwork: See above 05/13/2020 WBC 8.9, hemoglobin 11.4, hematocrit 36.8, elevated indices, RDW of 51.0, platelet count 171, absolute neutrophil count elevated at 7.8. Electrolytes all within normal limits except anion gap of 2, BUN of 2, creatinine 0.68 with estimated GFR of 97. Glucose 148, calcium 8.2. Bilirubin normal, AST 162, ALT 139, alk phosphatase 81 normal, total protein and albumin low 6.3, 2.1 respectively ----- -Imaging: As above 05/12/2020 hepatobiliary scan nuclear medicine: No scintigraphic evidence of cholecystitis or biliary obstruction ----- -Cardiac: ----- -Other: ----- Procedures/ Surgery: Surgery: Laparoscopic cholecystectomy with surgical findings of thickened gallbladder wall with areas of gangrene, enlarged liver with fatty infiltration ascites Hospital course: As above patient was admitted, IV fluid, pain management, taken to surgery. Patient had successful recovery and discharged in a stable condition. Instructions were to return to activity but no driving while taking narcotic medication Medication Reconciliation: Completed Patient was given oxycodone 5 mg every 12 hours #10 documented as of this encounter (statuses as of 11/23/2021) [facility]11-13-2021 History of Past illness Narrative* Problem Noted Date Resolved Date Encounter for support and coordination of transi tion of care 05/02/2021 07/23/2021 Overview: Hospital discharge summary: Date of admission 05/01/2021 Date of discharge: Facility: [facility] 05/01/2021 presented to the emergency room with acute alcohol intoxication, initial alcohol level 7-8. Acknowledges over the last 5 months drinking 15 packs a day at 8% alcohol (marcin samaniego). Vital signs 96.6 [id number]/73-98%. Appearance was no acute distress. WBC 7.9 Hgb 13.8 HCT 39.7 PLT 306. NA 130 2L K3.7 CL 90 6L CO2 26.0 BUN 20.5H CRE 0.93 GLU 111 Admitted from ER to detox unit Active problem list: 1. Alcohol dependence: Started on phenobarbital, gabapentin as needed dicyclomine as needed, Vistaril as needed, Imodium as needed, trazodone as needed, Zofran as needed, scheduled thiamine and scheduled folic acid. 2. Tobacco abuse: Nicotine patch prescribed, tobacco withheld. 3. Marijuana abuse: Counseled 4. Anxiety depression, PTSD: Continue home medications 5. COPD with home oxygen use: Stable, continue supplements duration O2 with continuous pulse oximetry per patient. 6. Hyponatremia chronic: Stable 7 DVT risk low: Encourage ambulation. Mild protein-calorie malnutrition 08/26/2020 11/12/2021 Encounter for support and coordination of transi tion of care 05/15/2020 05/02/2021 Overview: HOSPITAL/ER FOLLOW UP Which facility: [facility] Dates of visit: 05/10-05/13/2020 Preadmission evaluation: ER with right-sided abdominal pain over 2-1/2 hours, 10 out of 10. Worse with coughing. States she vomited 20 times the day before, with episodes of diarrhea over the past 2 days. Had used Imodium which improved diarrhea. No known exposures to Covid. Also identified chest pain which started approximately 2:00 that afternoon. Subjective fever and chills, chronic cough that is unchanged. Patient was afebrile with temp of 99.4 Fahrenheit, heart rate of 95, blood pressure 147/92. O2 saturation 94% but patient was started on O2 at 2 L per nasal cannula abdominal exam with severe tenderness over epigastric and right upper quadrant and right lower quadrant. No distention. CBC showed white count of 15.2 with neutrophils of 70. Hemoglobin 14.9, platelet 227, CMP within normal limits except for sodium of 134, glucose 107, total bili 1.5, AST and ALT 5 5/277, alk phos 122, troponin negative. Lipase 170. Covid rapid test negative. Ethanol 64. Chest x-ray with generalized hyperinflation, no acute findings. CT of abdomen pelvis without contrast demonstrated severe fatty liver, mild hepatomegaly, normal gallbladder, exophytic isodense nodule on the lower pole of the right kidney, mild bilateral fatty groin hernia. Appendix considered normal. Ultrasound of gallbladder demonstrated partially distended gallbladder with a positive sonographic Kennedy sign, no gallstones. Also identified mild perihepatic ascites. In ER patient was given IV Zofran, morphine 4 mg x 2 IV, Ativan 1 mg IV x1. Primary Diagnosis/es: Acute cholecystitis Elevated LFTs Secondary Diagnosis/es: Anxiety depression Hyperlipidemia Chronic tobacco use Chronic alcohol abuse SANA Hypothyroidism COPD with emphysema Chronic back pain PTSD Chronic anemia unknown etiology Gastroesophageal reflux disease Pulmonary embolus Consultants: Surgery: Dr. Gaye Gordon testing done: ----- -Labwork: See above 05/13/2020 WBC 8.9, hemoglobin 11.4, hematocrit 36.8, elevated indices, RDW of 51.0, platelet count 171, absolute neutrophil count elevated at 7.8. Electrolytes all within normal limits except anion gap of 2, BUN of 2, creatinine 0.68 with estimated GFR of 97. Glucose 148, calcium 8.2. Bilirubin normal, AST 162, ALT 139, alk phosphatase 81 normal, total protein and albumin low 6.3, 2.1 respectively ----- -Imaging: As above 05/12/2020 hepatobiliary scan nuclear medicine: No scintigraphic evidence of cholecystitis or biliary obstruction ----- -Cardiac: ----- -Other: ----- Procedures/ Surgery: Surgery: Laparoscopic cholecystectomy with surgical findings of thickened gallbladder wall with areas of gangrene, enlarged liver with fatty infiltration ascites Hospital course: As above patient was admitted, IV fluid, pain management, taken to surgery. Patient had successful recovery and discharged in a stable condition. Instructions were to return to activity but no driving while taking narcotic medication Medication Reconciliation: Completed Patient was given oxycodone 5 mg every 12 hours #10 documented as of this encounter (statuses as of 11/26/2021) [facility]11-13-[facility] History of Past illness Narrative* Problem Noted Date Resolved Date Encounter for support and coordination of transi tion of care 05/02/2021 07/23/2021 Overview: Hospital discharge summary: Date of admission 05/01/2021 Date of discharge: Facility: [facility] 05/01/2021 presented to the emergency room with acute alcohol intoxication, initial alcohol level 7-8. Acknowledges over the last 5 months drinking 15 packs a day at 8% alcohol (marcin samaniego). Vital signs 96.6 [id number]-[id number]/73-98%. Appearance was no acute distress. WBC 7.9 Hgb 13.8 HCT 39.7 PLT 306. NA 130 2L K3.7 CL 90 6L CO2 26.0 BUN 20.5H CRE 0.93 GLU 111 Admitted from ER to detox unit Active problem list: 1. Alcohol dependence: Started on phenobarbital, gabapentin as needed dicyclomine as needed, Vistaril as needed, Imodium as needed, trazodone as needed, Zofran as needed, scheduled thiamine and scheduled folic acid. 2. Tobacco abuse: Nicotine patch prescribed, tobacco withheld. 3. Marijuana abuse: Counseled 4. Anxiety depression, PTSD: Continue home medications 5. COPD with home oxygen use: Stable, continue supplements duration O2 with continuous pulse oximetry per patient. 6. Hyponatremia chronic: Stable 7 DVT risk low: Encourage ambulation. Mild protein-calorie malnutrition 08/26/2020 11/12/2021 Encounter for support and coordination of transi tion of care 05/15/2020 05/02/2021 Overview: HOSPITAL/ER FOLLOW UP Which facility: [facility] Dates of visit: 05/10-05/13/2020 Preadmission evaluation: ER with right-sided abdominal pain over 2-1/2 hours, 10 out of 10. Worse with coughing. States she vomited 20 times the day before, with episodes of diarrhea over the past 2 days. Had used Imodium which improved diarrhea. No known exposures to Covid. Also identified chest pain which started approximately 2:00 that afternoon. Subjective fever and chills, chronic cough that is unchanged. Patient was afebrile with temp of 99.4 Fahrenheit, heart rate of 95, blood pressure 147/92. O2 saturation 94% but patient was started on O2 at 2 L per nasal cannula abdominal exam with severe tenderness over epigastric and right upper quadrant and right lower quadrant. No distention. CBC showed white count of 15.2 with neutrophils of 70. Hemoglobin 14.9, platelet 227, CMP within normal limits except for sodium of 134, glucose 107, total bili 1.5, AST and ALT 5 5/277, alk phos 122, troponin negative. Lipase 170. Covid rapid test negative. Ethanol 64. Chest x-ray with generalized hyperinflation, no acute findings. CT of abdomen pelvis without contrast demonstrated severe fatty liver, mild hepatomegaly, normal gallbladder, exophytic isodense nodule on the lower pole of the right kidney, mild bilateral fatty groin hernia. Appendix considered normal. Ultrasound of gallbladder demonstrated partially distended gallbladder with a positive sonographic Kennedy sign, no gallstones. Also identified mild perihepatic ascites. In ER patient was given IV Zofran, morphine 4 mg x 2 IV, Ativan 1 mg IV x1. Primary Diagnosis/es: Acute cholecystitis Elevated LFTs Secondary Diagnosis/es: Anxiety depression Hyperlipidemia Chronic tobacco use Chronic alcohol abuse SANA Hypothyroidism COPD with emphysema Chronic back pain PTSD Chronic anemia unknown etiology Gastroesophageal reflux disease Pulmonary embolus Consultants: Surgery: Dr. Gaye Gordon testing done: ----- -Labwork: See above 05/13/2020 WBC 8.9, hemoglobin 11.4, hematocrit 36.8, elevated indices, RDW of 51.0, platelet count 171, absolute neutrophil count elevated at 7.8. Electrolytes all within normal limits except anion gap of 2, BUN of 2, creatinine 0.68 with estimated GFR of 97. Glucose 148, calcium 8.2. Bilirubin normal, AST 162, ALT 139, alk phosphatase 81 normal, total protein and albumin low 6.3, 2.1 respectively ----- -Imaging: As above 05/12/2020 hepatobiliary scan nuclear medicine: No scintigraphic evidence of cholecystitis or biliary obstruction ----- -Cardiac: ----- -Other: ----- Procedures/ Surgery: Surgery: Laparoscopic cholecystectomy with surgical findings of thickened gallbladder wall with areas of gangrene, enlarged liver with fatty infiltration ascites Hospital course: As above patient was admitted, IV fluid, pain management, taken to surgery. Patient had successful recovery and discharged in a stable condition. Instructions were to return to activity but no driving while taking narcotic medication Medication Reconciliation: Completed Patient was given oxycodone 5 mg every 12 hours #10 documented as of this encounter (statuses as of 11/28/2021) [facility] History of Past illness Narrative* Problem Noted Date Resolved Date Encounter for support and coordination of transi tion of care 05/02/2021 07/23/2021 Overview: Hospital discharge summary: Date of admission 05/01/2021 Date of discharge: Facility: [facility] 05/01/2021 presented to the emergency room with acute alcohol intoxication, initial alcohol level 7-8. Acknowledges over the last 5 months drinking 15 packs a day at 8% alcohol (marcin samaniego). Vital signs 96.6 [id number]-[id number]/73-98%. Appearance was no acute distress. WBC 7.9 Hgb 13.8 HCT 39.7 PLT 306. NA 130 2L K3.7 CL 90 6L CO2 26.0 BUN 20.5H CRE 0.93 GLU 111 Admitted from ER to detox unit Active problem list: 1. Alcohol dependence: Started on phenobarbital, gabapentin as needed dicyclomine as needed, Vistaril as needed, Imodium as needed, trazodone as needed, Zofran as needed, scheduled thiamine and scheduled folic acid. 2. Tobacco abuse: Nicotine patch prescribed, tobacco withheld. 3. Marijuana abuse: Counseled 4. Anxiety depression, PTSD: Continue home medications 5. COPD with home oxygen use: Stable, continue supplements duration O2 with continuous pulse oximetry per patient. 6. Hyponatremia chronic: Stable 7 DVT risk low: Encourage ambulation. Mild protein-calorie malnutrition 08/26/2020 11/12/2021 Encounter for support and coordination of transi tion of care 05/15/2020 05/02/2021 Overview: HOSPITAL/ER FOLLOW UP Which facility: [facility] Dates of visit: 05/10-05/13/2020 Preadmission evaluation: ER with right-sided abdominal pain over 2-1/2 hours, 10 out of 10. Worse with coughing. States she vomited 20 times the day before, with episodes of diarrhea over the past 2 days. Had used Imodium which improved diarrhea. No known exposures to Covid. Also identified chest pain which started approximately 2:00 that afternoon. Subjective fever and chills, chronic cough that is unchanged. Patient was afebrile with temp of 99.4 Fahrenheit, heart rate of 95, blood pressure 147/92. O2 saturation 94% but patient was started on O2 at 2 L per nasal cannula abdominal exam with severe tenderness over epigastric and right upper quadrant and right lower quadrant. No distention. CBC showed white count of 15.2 with neutrophils of 70. Hemoglobin 14.9, platelet 227, CMP within normal limits except for sodium of 134, glucose 107, total bili 1.5, AST and ALT 5 5/277, alk phos 122, troponin negative. Lipase 170. Covid rapid test negative. Ethanol 64. Chest x-ray with generalized hyperinflation, no acute findings. CT of abdomen pelvis without contrast demonstrated severe fatty liver, mild hepatomegaly, normal gallbladder, exophytic isodense nodule on the lower pole of the right kidney, mild bilateral fatty groin hernia. Appendix considered normal. Ultrasound of gallbladder demonstrated partially distended gallbladder with a positive sonographic Kennedy sign, no gallstones. Also identified mild perihepatic ascites. In ER patient was given IV Zofran, morphine 4 mg x 2 IV, Ativan 1 mg IV x1. Primary Diagnosis/es: Acute cholecystitis Elevated LFTs Secondary Diagnosis/es: Anxiety depression Hyperlipidemia Chronic tobacco use Chronic alcohol abuse SANA Hypothyroidism COPD with emphysema Chronic back pain PTSD Chronic anemia unknown etiology Gastroesophageal reflux disease Pulmonary embolus Consultants: Surgery: Dr. Gaye Gordon testing done: ----- -Labwork: See above 05/13/2020 WBC 8.9, hemoglobin 11.4, hematocrit 36.8, elevated indices, RDW of 51.0, platelet count 171, absolute neutrophil count elevated at 7.8. Electrolytes all within normal limits except anion gap of 2, BUN of 2, creatinine 0.68 with estimated GFR of 97. Glucose 148, calcium 8.2. Bilirubin normal, AST 162, ALT 139, alk phosphatase 81 normal, total protein and albumin low 6.3, 2.1 respectively ----- -Imaging: As above 05/12/2020 hepatobiliary scan nuclear medicine: No scintigraphic evidence of cholecystitis or biliary obstruction ----- -Cardiac: ----- -Other: ----- Procedures/ Surgery: Surgery: Laparoscopic cholecystectomy with surgical findings of thickened gallbladder wall with areas of gangrene, enlarged liver with fatty infiltration ascites Hospital course: As above patient was admitted, IV fluid, pain management, taken to surgery. Patient had successful recovery and discharged in a stable condition. Instructions were to return to activity but no driving while taking narcotic medication Medication Reconciliation: Completed Patient was given oxycodone 5 mg every 12 hours #10 documented as of this encounter (statuses as of 12/07/2021) [facility]11-13-2021 History of Past illness Narrative* Problem Noted Date Resolved Date Encounter for support and coordination of transi tion of care 05/02/2021 07/23/2021 Overview: Hospital discharge summary: Date of admission 05/01/2021 Date of discharge: Facility: [facility] 05/01/2021 presented to the emergency room with acute alcohol intoxication, initial alcohol level 7-8. Acknowledges over the last 5 months drinking 15 packs a day at 8% alcohol (marcin samaniego). Vital signs 96.6 [id number]%. Appearance was no acute distress. WBC 7.9 Hgb 13.8 HCT 39.7 PLT 306. NA 130 2L K3.7 CL 90 6L CO2 26.0 BUN 20.5H CRE 0.93 GLU 111 Admitted from ER to detox unit Active problem list: 1. Alcohol dependence: Started on phenobarbital, gabapentin as needed dicyclomine as needed, Vistaril as needed, Imodium as needed, trazodone as needed, Zofran as needed, scheduled thiamine and scheduled folic acid. 2. Tobacco abuse: Nicotine patch prescribed, tobacco withheld. 3. Marijuana abuse: Counseled 4. Anxiety depression, PTSD: Continue home medications 5. COPD with home oxygen use: Stable, continue supplements duration O2 with continuous pulse oximetry per patient. 6. Hyponatremia chronic: Stable 7 DVT risk low: Encourage ambulation. Mild protein-calorie malnutrition 08/26/2020 11/12/2021 Encounter for support and coordination of transi tion of care 05/15/2020 05/02/2021 Overview: HOSPITAL/ER FOLLOW UP Which facility: [facility] Dates of visit: 05/10-05/13/2020 Preadmission evaluation: ER with right-sided abdominal pain over 2-1/2 hours, 10 out of 10. Worse with coughing. States she vomited 20 times the day before, with episodes of diarrhea over the past 2 days. Had used Imodium which improved diarrhea. No known exposures to Covid. Also identified chest pain which started approximately 2:00 that afternoon. Subjective fever and chills, chronic cough that is unchanged. Patient was afebrile with temp of 99.4 Fahrenheit, heart rate of 95, blood pressure 147/92. O2 saturation 94% but patient was started on O2 at 2 L per nasal cannula abdominal exam with severe tenderness over epigastric and right upper quadrant and right lower quadrant. No distention. CBC showed white count of 15.2 with neutrophils of 70. Hemoglobin 14.9, platelet 227, CMP within normal limits except for sodium of 134, glucose 107, total bili 1.5, AST and ALT 5 5/277, alk phos 122, troponin negative. Lipase 170. Covid rapid test negative. Ethanol 64. Chest x-ray with generalized hyperinflation, no acute findings. CT of abdomen pelvis without contrast demonstrated severe fatty liver, mild hepatomegaly, normal gallbladder, exophytic isodense nodule on the lower pole of the right kidney, mild bilateral fatty groin hernia. Appendix considered normal. Ultrasound of gallbladder demonstrated partially distended gallbladder with a positive sonographic Kennedy sign, no gallstones. Also identified mild perihepatic ascites. In ER patient was given IV Zofran, morphine 4 mg x 2 IV, Ativan 1 mg IV x1. Primary Diagnosis/es: Acute cholecystitis Elevated LFTs Secondary Diagnosis/es: Anxiety depression Hyperlipidemia Chronic tobacco use Chronic alcohol abuse SANA Hypothyroidism COPD with emphysema Chronic back pain PTSD Chronic anemia unknown etiology Gastroesophageal reflux disease Pulmonary embolus Consultants: Surgery: Dr. Gaye Gordon testing done: ----- -Labwork: See above 05/13/2020 WBC 8.9, hemoglobin 11.4, hematocrit 36.8, elevated indices, RDW of 51.0, platelet count 171, absolute neutrophil count elevated at 7.8. Electrolytes all within normal limits except anion gap of 2, BUN of 2, creatinine 0.68 with estimated GFR of 97. Glucose 148, calcium 8.2. Bilirubin normal, AST 162, ALT 139, alk phosphatase 81 normal, total protein and albumin low 6.3, 2.1 respectively ----- -Imaging: As above 05/12/2020 hepatobiliary scan nuclear medicine: No scintigraphic evidence of cholecystitis or biliary obstruction ----- -Cardiac: ----- -Other: ----- Procedures/ Surgery: Surgery: Laparoscopic cholecystectomy with surgical findings of thickened gallbladder wall with areas of gangrene, enlarged liver with fatty infiltration ascites Hospital course: As above patient was admitted, IV fluid, pain management, taken to surgery. Patient had successful recovery and discharged in a stable condition. Instructions were to return to activity but no driving while taking narcotic medication Medication Reconciliation: Completed Patient was given oxycodone 5 mg every 12 hours #10 documented as of this encounter (statuses as of 12/09/2021) [facility]11-13-2021 History of Past illness Narrative* Problem Noted Date Resolved Date Encounter for support and coordination of transi tion of care 05/02/2021 07/23/2021 Overview: Hospital discharge summary: Date of admission 05/01/2021 Date of discharge: Facility: [facility] 05/01/2021 presented to the emergency room with acute alcohol intoxication, initial alcohol level 7-8. Acknowledges over the last 5 months drinking 15 packs a day at 8% alcohol (marcin samaniego). Vital signs 96.6 [id number]/[id number]%. Appearance was no acute distress. WBC 7.9 Hgb 13.8 HCT 39.7 PLT 306. NA 130 2L K3.7 CL 90 6L CO2 26.0 BUN 20.5H CRE 0.93 GLU 111 Admitted from ER to detox unit Active problem list: 1. Alcohol dependence: Started on phenobarbital, gabapentin as needed dicyclomine as needed, Vistaril as needed, Imodium as needed, trazodone as needed, Zofran as needed, scheduled thiamine and scheduled folic acid. 2. Tobacco abuse: Nicotine patch prescribed, tobacco withheld. 3. Marijuana abuse: Counseled 4. Anxiety depression, PTSD: Continue home medications 5. COPD with home oxygen use: Stable, continue supplements duration O2 with continuous pulse oximetry per patient. 6. Hyponatremia chronic: Stable 7 DVT risk low: Encourage ambulation. Mild protein-calorie malnutrition 08/26/2020 11/12/2021 Encounter for support and coordination of transi tion of care 05/15/2020 05/02/2021 Overview: HOSPITAL/ER FOLLOW UP Which facility: [facility] Dates of visit: 05/10-05/13/2020 Preadmission evaluation: ER with right-sided abdominal pain over 2-1/2 hours, 10 out of 10. Worse with coughing. States she vomited 20 times the day before, with episodes of diarrhea over the past 2 days. Had used Imodium which improved diarrhea. No known exposures to Covid. Also identified chest pain which started approximately 2:00 that afternoon. Subjective fever and chills, chronic cough that is unchanged. Patient was afebrile with temp of 99.4 Fahrenheit, heart rate of 95, blood pressure 147/92. O2 saturation 94% but patient was started on O2 at 2 L per nasal cannula abdominal exam with severe tenderness over epigastric and right upper quadrant and right lower quadrant. No distention. CBC showed white count of 15.2 with neutrophils of 70. Hemoglobin 14.9, platelet 227, CMP within normal limits except for sodium of 134, glucose 107, total bili 1.5, AST and ALT 5 /277, alk phos 122, troponin negative. Lipase 170. Covid rapid test negative. Ethanol 64. Chest x-ray with generalized hyperinflation, no acute findings. CT of abdomen pelvis without contrast demonstrated severe fatty liver, mild hepatomegaly, normal gallbladder, exophytic isodense nodule on the lower pole of the right kidney, mild bilateral fatty groin hernia. Appendix considered normal. Ultrasound of gallbladder demonstrated partially distended gallbladder with a positive sonographic Kennedy sign, no gallstones. Also identified mild perihepatic ascites. In ER patient was given IV Zofran, morphine 4 mg x 2 IV, Ativan 1 mg IV x1. Primary Diagnosis/es: Acute cholecystitis Elevated LFTs Secondary Diagnosis/es: Anxiety depression Hyperlipidemia Chronic tobacco use Chronic alcohol abuse SANA Hypothyroidism COPD with emphysema Chronic back pain PTSD Chronic anemia unknown etiology Gastroesophageal reflux disease Pulmonary embolus Consultants: Surgery: Dr. Gaye Gordon testing done: ----- -Labwork: See above 05/13/2020 WBC 8.9, hemoglobin 11.4, hematocrit 36.8, elevated indices, RDW of 51.0, platelet count 171, absolute neutrophil count elevated at 7.8. Electrolytes all within normal limits except anion gap of 2, BUN of 2, creatinine 0.68 with estimated GFR of 97. Glucose 148, calcium 8.2. Bilirubin normal, AST 162, ALT 139, alk phosphatase 81 normal, total protein and albumin low 6.3, 2.1 respectively ----- -Imaging: As above 05/12/2020 hepatobiliary scan nuclear medicine: No scintigraphic evidence of cholecystitis or biliary obstruction ----- -Cardiac: ----- -Other: ----- Procedures/ Surgery: Surgery: Laparoscopic cholecystectomy with surgical findings of thickened gallbladder wall with areas of gangrene, enlarged liver with fatty infiltration ascites Hospital course: As above patient was admitted, IV fluid, pain management, taken to surgery. Patient had successful recovery and discharged in a stable condition. Instructions were to return to activity but no driving while taking narcotic medication Medication Reconciliation: Completed Patient was given oxycodone 5 mg every 12 hours #10 documented as of this encounter (statuses as of 12/09/2021) [facility]11-13-2021 History of Past illness Narrative* Problem Noted Date Resolved Date Encounter for support and coordination of transi tion of care 05/02/2021 07/23/2021 Overview: Hospital discharge summary: Date of admission 05/01/2021 Date of discharge: Facility: [facility] 05/01/2021 presented to the emergency room with acute alcohol intoxication, initial alcohol level 7-8. Acknowledges over the last 5 months drinking 15 packs a day at 8% alcohol (marcin samaniego). Vital signs 96.6 [id number]/73-98%. Appearance was no acute distress. WBC 7.9 Hgb 13.8 HCT 39.7 PLT 306. NA 130 2L K3.7 CL 90 6L CO2 26.0 BUN 20.5H CRE 0.93 GLU 111 Admitted from ER to detox unit Active problem list: 1. Alcohol dependence: Started on phenobarbital, gabapentin as needed dicyclomine as needed, Vistaril as needed, Imodium as needed, trazodone as needed, Zofran as needed, scheduled thiamine and scheduled folic acid. 2. Tobacco abuse: Nicotine patch prescribed, tobacco withheld. 3. Marijuana abuse: Counseled 4. Anxiety depression, PTSD: Continue home medications 5. COPD with home oxygen use: Stable, continue supplements duration O2 with continuous pulse oximetry per patient. 6. Hyponatremia chronic: Stable 7 DVT risk low: Encourage ambulation. Mild protein-calorie malnutrition 08/26/2020 11/12/2021 Encounter for support and coordination of transi tion of care 05/15/2020 05/02/2021 Overview: HOSPITAL/ER FOLLOW UP Which facility: [facility] Dates of visit: 05/10-05/13/2020 Preadmission evaluation: ER with right-sided abdominal pain over 2-1/2 hours, 10 out of 10. Worse with coughing. States she vomited 20 times the day before, with episodes of diarrhea over the past 2 days. Had used Imodium which improved diarrhea. No known exposures to Covid. Also identified chest pain which started approximately 2:00 that afternoon. Subjective fever and chills, chronic cough that is unchanged. Patient was afebrile with temp of 99.4 Fahrenheit, heart rate of 95, blood pressure 147/92. O2 saturation 94% but patient was started on O2 at 2 L per nasal cannula abdominal exam with severe tenderness over epigastric and right upper quadrant and right lower quadrant. No distention. CBC showed white count of 15.2 with neutrophils of 70. Hemoglobin 14.9, platelet 227, CMP within normal limits except for sodium of 134, glucose 107, total bili 1.5, AST and ALT 5 5/277, alk phos 122, troponin negative. Lipase 170. Covid rapid test negative. Ethanol 64. Chest x-ray with generalized hyperinflation, no acute findings. CT of abdomen pelvis without contrast demonstrated severe fatty liver, mild hepatomegaly, normal gallbladder, exophytic isodense nodule on the lower pole of the right kidney, mild bilateral fatty groin hernia. Appendix considered normal. Ultrasound of gallbladder demonstrated partially distended gallbladder with a positive sonographic Kennedy sign, no gallstones. Also identified mild perihepatic ascites. In ER patient was given IV Zofran, morphine 4 mg x 2 IV, Ativan 1 mg IV x1. Primary Diagnosis/es: Acute cholecystitis Elevated LFTs Secondary Diagnosis/es: Anxiety depression Hyperlipidemia Chronic tobacco use Chronic alcohol abuse SANA Hypothyroidism COPD with emphysema Chronic back pain PTSD Chronic anemia unknown etiology Gastroesophageal reflux disease Pulmonary embolus Consultants: Surgery: Dr. Gaye Gordon testing done: ----- -Labwork: See above 05/13/2020 WBC 8.9, hemoglobin 11.4, hematocrit 36.8, elevated indices, RDW of 51.0, platelet count 171, absolute neutrophil count elevated at 7.8. Electrolytes all within normal limits except anion gap of 2, BUN of 2, creatinine 0.68 with estimated GFR of 97. Glucose 148, calcium 8.2. Bilirubin normal, AST 162, ALT 139, alk phosphatase 81 normal, total protein and albumin low 6.3, 2.1 respectively ----- -Imaging: As above 05/12/2020 hepatobiliary scan nuclear medicine: No scintigraphic evidence of cholecystitis or biliary obstruction ----- -Cardiac: ----- -Other: ----- Procedures/ Surgery: Surgery: Laparoscopic cholecystectomy with surgical findings of thickened gallbladder wall with areas of gangrene, enlarged liver with fatty infiltration ascites Hospital course: As above patient was admitted, IV fluid, pain management, taken to surgery. Patient had successful recovery and discharged in a stable condition. Instructions were to return to activity but no driving while taking narcotic medication Medication Reconciliation: Completed Patient was given oxycodone 5 mg every 12 hours #10 documented as of this encounter (statuses as of 12/10/2021) [facility]11-13-2021 History of Past illness Narrative* Problem Noted Date Resolved Date Encounter for support and coordination of transi tion of care 05/02/2021 07/23/2021 Overview: Hospital discharge summary: Date of admission 05/01/2021 Date of discharge: Facility: [facility] 05/01/2021 presented to the emergency room with acute alcohol intoxication, initial alcohol level 7-8. Acknowledges over the last 5 months drinking 15 packs a day at 8% alcohol (marcin samaniego). Vital signs 96.6 [id number]/73-98%. Appearance was no acute distress. WBC 7.9 Hgb 13.8 HCT 39.7 PLT 306. NA 130 2L K3.7 CL 90 6L CO2 26.0 BUN 20.5H CRE 0.93 GLU 111 Admitted from ER to detox unit Active problem list: 1. Alcohol dependence: Started on phenobarbital, gabapentin as needed dicyclomine as needed, Vistaril as needed, Imodium as needed, trazodone as needed, Zofran as needed, scheduled thiamine and scheduled folic acid. 2. Tobacco abuse: Nicotine patch prescribed, tobacco withheld. 3. Marijuana abuse: Counseled 4. Anxiety depression, PTSD: Continue home medications 5. COPD with home oxygen use: Stable, continue supplements duration O2 with continuous pulse oximetry per patient. 6. Hyponatremia chronic: Stable 7 DVT risk low: Encourage ambulation. Mild protein-calorie malnutrition 08/26/2020 11/12/2021 Encounter for support and coordination of transi tion of care 05/15/2020 05/02/2021 Overview: HOSPITAL/ER FOLLOW UP Which facility: [facility] Dates of visit: 05/10-05/13/2020 Preadmission evaluation: ER with right-sided abdominal pain over 2-1/2 hours, 10 out of 10. Worse with coughing. States she vomited 20 times the day before, with episodes of diarrhea over the past 2 days. Had used Imodium which improved diarrhea. No known exposures to Covid. Also identified chest pain which started approximately 2:00 that afternoon. Subjective fever and chills, chronic cough that is unchanged. Patient was afebrile with temp of 99.4 Fahrenheit, heart rate of 95, blood pressure 147/92. O2 saturation 94% but patient was started on O2 at 2 L per nasal cannula abdominal exam with severe tenderness over epigastric and right upper quadrant and right lower quadrant. No distention. CBC showed white count of 15.2 with neutrophils of 70. Hemoglobin 14.9, platelet 227, CMP within normal limits except for sodium of 134, glucose 107, total bili 1.5, AST and ALT 5 5/277, alk phos 122, troponin negative. Lipase 170. Covid rapid test negative. Ethanol 64. Chest x-ray with generalized hyperinflation, no acute findings. CT of abdomen pelvis without contrast demonstrated severe fatty liver, mild hepatomegaly, normal gallbladder, exophytic isodense nodule on the lower pole of the right kidney, mild bilateral fatty groin hernia. Appendix considered normal. Ultrasound of gallbladder demonstrated partially distended gallbladder with a positive sonographic Kennedy sign, no gallstones. Also identified mild perihepatic ascites. In ER patient was given IV Zofran, morphine 4 mg x 2 IV, Ativan 1 mg IV x1. Primary Diagnosis/es: Acute cholecystitis Elevated LFTs Secondary Diagnosis/es: Anxiety depression Hyperlipidemia Chronic tobacco use Chronic alcohol abuse SANA Hypothyroidism COPD with emphysema Chronic back pain PTSD Chronic anemia unknown etiology Gastroesophageal reflux disease Pulmonary embolus Consultants: Surgery: Dr. Gaye Gordon testing done: ----- -Labwork: See above 05/13/2020 WBC 8.9, hemoglobin 11.4, hematocrit 36.8, elevated indices, RDW of 51.0, platelet count 171, absolute neutrophil count elevated at 7.8. Electrolytes all within normal limits except anion gap of 2, BUN of 2, creatinine 0.68 with estimated GFR of 97. Glucose 148, calcium 8.2. Bilirubin normal, AST 162, ALT 139, alk phosphatase 81 normal, total protein and albumin low 6.3, 2.1 respectively ----- -Imaging: As above 05/12/2020 hepatobiliary scan nuclear medicine: No scintigraphic evidence of cholecystitis or biliary obstruction ----- -Cardiac: ----- -Other: ----- Procedures/ Surgery: Surgery: Laparoscopic cholecystectomy with surgical findings of thickened gallbladder wall with areas of gangrene, enlarged liver with fatty infiltration ascites Hospital course: As above patient was admitted, IV fluid, pain management, taken to surgery. Patient had successful recovery and discharged in a stable condition. Instructions were to return to activity but no driving while taking narcotic medication Medication Reconciliation: Completed Patient was given oxycodone 5 mg every 12 hours #10 documented as of this encounter (statuses as of 12/10/2021) [facility]11-13-2021 History of Past illness Narrative* Problem Noted Date Resolved Date Encounter for support and coordination of transi tion of care 05/02/2021 07/23/2021 Overview: Hospital discharge summary: Date of admission 05/01/2021 Date of discharge: Facility: [facility] 05/01/2021 presented to the emergency room with acute alcohol intoxication, initial alcohol level 7-8. Acknowledges over the last 5 months drinking 15 packs a day at 8% alcohol (marcin samaniego). Vital signs 96.6 [id number]/73-98%. Appearance was no acute distress. WBC 7.9 Hgb 13.8 HCT 39.7 PLT 306. NA 130 2L K3.7 CL 90 6L CO2 26.0 BUN 20.5H CRE 0.93 GLU 111 Admitted from ER to detox unit Active problem list: 1. Alcohol dependence: Started on phenobarbital, gabapentin as needed dicyclomine as needed, Vistaril as needed, Imodium as needed, trazodone as needed, Zofran as needed, scheduled thiamine and scheduled folic acid. 2. Tobacco abuse: Nicotine patch prescribed, tobacco withheld. 3. Marijuana abuse: Counseled 4. Anxiety depression, PTSD: Continue home medications 5. COPD with home oxygen use: Stable, continue supplements duration O2 with continuous pulse oximetry per patient. 6. Hyponatremia chronic: Stable 7 DVT risk low: Encourage ambulation. Mild protein-calorie malnutrition 08/26/2020 11/12/2021 Encounter for support and coordination of transi tion of care 05/15/2020 05/02/2021 Overview: HOSPITAL/ER FOLLOW UP Which facility: [facility] Dates of visit: 05/10-05/13/2020 Preadmission evaluation: ER with right-sided abdominal pain over 2-1/2 hours, 10 out of 10. Worse with coughing. States she vomited 20 times the day before, with episodes of diarrhea over the past 2 days. Had used Imodium which improved diarrhea. No known exposures to Covid. Also identified chest pain which started approximately 2:00 that afternoon. Subjective fever and chills, chronic cough that is unchanged. Patient was afebrile with temp of 99.4 Fahrenheit, heart rate of 95, blood pressure 147/92. O2 saturation 94% but patient was started on O2 at 2 L per nasal cannula abdominal exam with severe tenderness over epigastric and right upper quadrant and right lower quadrant. No distention. CBC showed white count of 15.2 with neutrophils of 70. Hemoglobin 14.9, platelet 227, CMP within normal limits except for sodium of 134, glucose 107, total bili 1.5, AST and ALT 5 5/277, alk phos 122, troponin negative. Lipase 170. Covid rapid test negative. Ethanol 64. Chest x-ray with generalized hyperinflation, no acute findings. CT of abdomen pelvis without contrast demonstrated severe fatty liver, mild hepatomegaly, normal gallbladder, exophytic isodense nodule on the lower pole of the right kidney, mild bilateral fatty groin hernia. Appendix considered normal. Ultrasound of gallbladder demonstrated partially distended gallbladder with a positive sonographic Kennedy sign, no gallstones. Also identified mild perihepatic ascites. In ER patient was given IV Zofran, morphine 4 mg x 2 IV, Ativan 1 mg IV x1. Primary Diagnosis/es: Acute cholecystitis Elevated LFTs Secondary Diagnosis/es: Anxiety depression Hyperlipidemia Chronic tobacco use Chronic alcohol abuse SANA Hypothyroidism COPD with emphysema Chronic back pain PTSD Chronic anemia unknown etiology Gastroesophageal reflux disease Pulmonary embolus Consultants: Surgery: Dr. Gaye Gordon testing done: ----- -Labwork: See above 05/13/2020 WBC 8.9, hemoglobin 11.4, hematocrit 36.8, elevated indices, RDW of 51.0, platelet count 171, absolute neutrophil count elevated at 7.8. Electrolytes all within normal limits except anion gap of 2, BUN of 2, creatinine 0.68 with estimated GFR of 97. Glucose 148, calcium 8.2. Bilirubin normal, AST 162, ALT 139, alk phosphatase 81 normal, total protein and albumin low 6.3, 2.1 respectively ----- -Imaging: As above 05/12/2020 hepatobiliary scan nuclear medicine: No scintigraphic evidence of cholecystitis or biliary obstruction ----- -Cardiac: ----- -Other: ----- Procedures/ Surgery: Surgery: Laparoscopic cholecystectomy with surgical findings of thickened gallbladder wall with areas of gangrene, enlarged liver with fatty infiltration ascites Hospital course: As above patient was admitted, IV fluid, pain management, taken to surgery. Patient had successful recovery and discharged in a stable condition. Instructions were to return to activity but no driving while taking narcotic medication Medication Reconciliation: Completed Patient was given oxycodone 5 mg every 12 hours #10 documented as of this encounter (statuses as of 12/10/2021) [facility]11-13-2021 History of Past illness Narrative* Problem Noted Date Resolved Date Encounter for support and coordination of transi tion of care 05/02/2021 07/23/2021 Overview: Hospital discharge summary: Date of admission 05/01/2021 Date of discharge: Facility: [facility] 05/01/2021 presented to the emergency room with acute alcohol intoxication, initial alcohol level 7-8. Acknowledges over the last 5 months drinking 15 packs a day at 8% alcohol (marcin samaniego). Vital signs 96.6 [id number]/[id number]%. Appearance was no acute distress. WBC 7.9 Hgb 13.8 HCT 39.7 PLT 306. NA 130 2L K3.7 CL 90 6L CO2 26.0 BUN 20.5H CRE 0.93 GLU 111 Admitted from ER to detox unit Active problem list: 1. Alcohol dependence: Started on phenobarbital, gabapentin as needed dicyclomine as needed, Vistaril as needed, Imodium as needed, trazodone as needed, Zofran as needed, scheduled thiamine and scheduled folic acid. 2. Tobacco abuse: Nicotine patch prescribed, tobacco withheld. 3. Marijuana abuse: Counseled 4. Anxiety depression, PTSD: Continue home medications 5. COPD with home oxygen use: Stable, continue supplements duration O2 with continuous pulse oximetry per patient. 6. Hyponatremia chronic: Stable 7 DVT risk low: Encourage ambulation. Mild protein-calorie malnutrition 08/26/2020 11/12/2021 Encounter for support and coordination of transi tion of care 05/15/2020 05/02/2021 Overview: HOSPITAL/ER FOLLOW UP Which facility: [facility] Dates of visit: 05/10-05/13/2020 Preadmission evaluation: ER with right-sided abdominal pain over 2-1/2 hours, 10 out of 10. Worse with coughing. States she vomited 20 times the day before, with episodes of diarrhea over the past 2 days. Had used Imodium which improved diarrhea. No known exposures to Covid. Also identified chest pain which started approximately 2:00 that afternoon. Subjective fever and chills, chronic cough that is unchanged. Patient was afebrile with temp of 99.4 Fahrenheit, heart rate of 95, blood pressure 147/92. O2 saturation 94% but patient was started on O2 at 2 L per nasal cannula abdominal exam with severe tenderness over epigastric and right upper quadrant and right lower quadrant. No distention. CBC showed white count of 15.2 with neutrophils of 70. Hemoglobin 14.9, platelet 227, CMP within normal limits except for sodium of 134, glucose 107, total bili 1.5, AST and ALT 5 5/277, alk phos 122, troponin negative. Lipase 170. Covid rapid test negative. Ethanol 64. Chest x-ray with generalized hyperinflation, no acute findings. CT of abdomen pelvis without contrast demonstrated severe fatty liver, mild hepatomegaly, normal gallbladder, exophytic isodense nodule on the lower pole of the right kidney, mild bilateral fatty groin hernia. Appendix considered normal. Ultrasound of gallbladder demonstrated partially distended gallbladder with a positive sonographic Kennedy sign, no gallstones. Also identified mild perihepatic ascites. In ER patient was given IV Zofran, morphine 4 mg x 2 IV, Ativan 1 mg IV x1. Primary Diagnosis/es: Acute cholecystitis Elevated LFTs Secondary Diagnosis/es: Anxiety depression Hyperlipidemia Chronic tobacco use Chronic alcohol abuse SANA Hypothyroidism COPD with emphysema Chronic back pain PTSD Chronic anemia unknown etiology Gastroesophageal reflux disease Pulmonary embolus Consultants: Surgery: Dr. Gaye Gordon testing done: ----- -Labwork: See above 05/13/2020 WBC 8.9, hemoglobin 11.4, hematocrit 36.8, elevated indices, RDW of 51.0, platelet count 171, absolute neutrophil count elevated at 7.8. Electrolytes all within normal limits except anion gap of 2, BUN of 2, creatinine 0.68 with estimated GFR of 97. Glucose 148, calcium 8.2. Bilirubin normal, AST 162, ALT 139, alk phosphatase 81 normal, total protein and albumin low 6.3, 2.1 respectively ----- -Imaging: As above 05/12/2020 hepatobiliary scan nuclear medicine: No scintigraphic evidence of cholecystitis or biliary obstruction ----- -Cardiac: ----- -Other: ----- Procedures/ Surgery: Surgery: Laparoscopic cholecystectomy with surgical findings of thickened gallbladder wall with areas of gangrene, enlarged liver with fatty infiltration ascites Hospital course: As above patient was admitted, IV fluid, pain management, taken to surgery. Patient had successful recovery and discharged in a stable condition. Instructions were to return to activity but no driving while taking narcotic medication Medication Reconciliation: Completed Patient was given oxycodone 5 mg every 12 hours #10 documented as of this encounter (statuses as of 12/15/2021) [facility]11-13-2021 History of Past illness Narrative* Problem Noted Date Resolved Date Encounter for support and coordination of transi tion of care 05/02/2021 07/23/2021 Overview: Hospital discharge summary: Date of admission 05/01/2021 Date of discharge: Facility: [facility] 05/01/2021 presented to the emergency room with acute alcohol intoxication, initial alcohol level 7-8. Acknowledges over the last 5 months drinking 15 packs a day at 8% alcohol (marcin samaniego). Vital signs 96.6 [id number]/73-98%. Appearance was no acute distress. WBC 7.9 Hgb 13.8 HCT 39.7 PLT 306. NA 130 2L K3.7 CL 90 6L CO2 26.0 BUN 20.5H CRE 0.93 GLU 111 Admitted from ER to detox unit Active problem list: 1. Alcohol dependence: Started on phenobarbital, gabapentin as needed dicyclomine as needed, Vistaril as needed, Imodium as needed, trazodone as needed, Zofran as needed, scheduled thiamine and scheduled folic acid. 2. Tobacco abuse: Nicotine patch prescribed, tobacco withheld. 3. Marijuana abuse: Counseled 4. Anxiety depression, PTSD: Continue home medications 5. COPD with home oxygen use: Stable, continue supplements duration O2 with continuous pulse oximetry per patient. 6. Hyponatremia chronic: Stable 7 DVT risk low: Encourage ambulation. Mild protein-calorie malnutrition 08/26/2020 11/12/2021 Encounter for support and coordination of transi tion of care 05/15/2020 05/02/2021 Overview: HOSPITAL/ER FOLLOW UP Which facility: [facility] Dates of visit: 05/10-05/13/2020 Preadmission evaluation: ER with right-sided abdominal pain over 2-1/2 hours, 10 out of 10. Worse with coughing. States she vomited 20 times the day before, with episodes of diarrhea over the past 2 days. Had used Imodium which improved diarrhea. No known exposures to Covid. Also identified chest pain which started approximately 2:00 that afternoon. Subjective fever and chills, chronic cough that is unchanged. Patient was afebrile with temp of 99.4 Fahrenheit, heart rate of 95, blood pressure 147/92. O2 saturation 94% but patient was started on O2 at 2 L per nasal cannula abdominal exam with severe tenderness over epigastric and right upper quadrant and right lower quadrant. No distention. CBC showed white count of 15.2 with neutrophils of 70. Hemoglobin 14.9, platelet 227, CMP within normal limits except for sodium of 134, glucose 107, total bili 1.5, AST and ALT 5 5/277, alk phos 122, troponin negative. Lipase 170. Covid rapid test negative. Ethanol 64. Chest x-ray with generalized hyperinflation, no acute findings. CT of abdomen pelvis without contrast demonstrated severe fatty liver, mild hepatomegaly, normal gallbladder, exophytic isodense nodule on the lower pole of the right kidney, mild bilateral fatty groin hernia. Appendix considered normal. Ultrasound of gallbladder demonstrated partially distended gallbladder with a positive sonographic Kennedy sign, no gallstones. Also identified mild perihepatic ascites. In ER patient was given IV Zofran, morphine 4 mg x 2 IV, Ativan 1 mg IV x1. Primary Diagnosis/es: Acute cholecystitis Elevated LFTs Secondary Diagnosis/es: Anxiety depression Hyperlipidemia Chronic tobacco use Chronic alcohol abuse SANA Hypothyroidism COPD with emphysema Chronic back pain PTSD Chronic anemia unknown etiology Gastroesophageal reflux disease Pulmonary embolus Consultants: Surgery: Dr. Gaye Gordon testing done: ----- -Labwork: See above 05/13/2020 WBC 8.9, hemoglobin 11.4, hematocrit 36.8, elevated indices, RDW of 51.0, platelet count 171, absolute neutrophil count elevated at 7.8. Electrolytes all within normal limits except anion gap of 2, BUN of 2, creatinine 0.68 with estimated GFR of 97. Glucose 148, calcium 8.2. Bilirubin normal, AST 162, ALT 139, alk phosphatase 81 normal, total protein and albumin low 6.3, 2.1 respectively ----- -Imaging: As above 05/12/2020 hepatobiliary scan nuclear medicine: No scintigraphic evidence of cholecystitis or biliary obstruction ----- -Cardiac: ----- -Other: ----- Procedures/ Surgery: Surgery: Laparoscopic cholecystectomy with surgical findings of thickened gallbladder wall with areas of gangrene, enlarged liver with fatty infiltration ascites Hospital course: As above patient was admitted, IV fluid, pain management, taken to surgery. Patient had successful recovery and discharged in a stable condition. Instructions were to return to activity but no driving while taking narcotic medication Medication Reconciliation: Completed Patient was given oxycodone 5 mg every 12 hours #10 documented as of this encounter (statuses as of 01/04/2022) [facility]11-13-2021 History of Past illness Narrative* Problem Noted Date Resolved Date Encounter for support and coordination of transi tion of care 05/02/2021 07/23/2021 Overview: Hospital discharge summary: Date of admission 05/01/2021 Date of discharge: Facility: [facility] 05/01/2021 presented to the emergency room with acute alcohol intoxication, initial alcohol level 7-8. Acknowledges over the last 5 months drinking 15 packs a day at 8% alcohol (marcin samaniego). Vital signs 96.6 [id number]/73-98%. Appearance was no acute distress. WBC 7.9 Hgb 13.8 HCT 39.7 PLT 306. NA 130 2L K3.7 CL 90 6L CO2 26.0 BUN 20.5H CRE 0.93 GLU 111 Admitted from ER to detox unit Active problem list: 1. Alcohol dependence: Started on phenobarbital, gabapentin as needed dicyclomine as needed, Vistaril as needed, Imodium as needed, trazodone as needed, Zofran as needed, scheduled thiamine and scheduled folic acid. 2. Tobacco abuse: Nicotine patch prescribed, tobacco withheld. 3. Marijuana abuse: Counseled 4. Anxiety depression, PTSD: Continue home medications 5. COPD with home oxygen use: Stable, continue supplements duration O2 with continuous pulse oximetry per patient. 6. Hyponatremia chronic: Stable 7 DVT risk low: Encourage ambulation. Mild protein-calorie malnutrition 08/26/2020 11/12/2021 Encounter for support and coordination of transi tion of care 05/15/2020 05/02/2021 Overview: HOSPITAL/ER FOLLOW UP Which facility: [facility] Dates of visit: 05/10-05/13/2020 Preadmission evaluation: ER with right-sided abdominal pain over 2-1/2 hours, 10 out of 10. Worse with coughing. States she vomited 20 times the day before, with episodes of diarrhea over the past 2 days. Had used Imodium which improved diarrhea. No known exposures to Covid. Also identified chest pain which started approximately 2:00 that afternoon. Subjective fever and chills, chronic cough that is unchanged. Patient was afebrile with temp of 99.4 Fahrenheit, heart rate of 95, blood pressure 147/92. O2 saturation 94% but patient was started on O2 at 2 L per nasal cannula abdominal exam with severe tenderness over epigastric and right upper quadrant and right lower quadrant. No distention. CBC showed white count of 15.2 with neutrophils of 70. Hemoglobin 14.9, platelet 227, CMP within normal limits except for sodium of 134, glucose 107, total bili 1.5, AST and ALT 5 5/277, alk phos 122, troponin negative. Lipase 170. Covid rapid test negative. Ethanol 64. Chest x-ray with generalized hyperinflation, no acute findings. CT of abdomen pelvis without contrast demonstrated severe fatty liver, mild hepatomegaly, normal gallbladder, exophytic isodense nodule on the lower pole of the right kidney, mild bilateral fatty groin hernia. Appendix considered normal. Ultrasound of gallbladder demonstrated partially distended gallbladder with a positive sonographic Kennedy sign, no gallstones. Also identified mild perihepatic ascites. In ER patient was given IV Zofran, morphine 4 mg x 2 IV, Ativan 1 mg IV x1. Primary Diagnosis/es: Acute cholecystitis Elevated LFTs Secondary Diagnosis/es: Anxiety depression Hyperlipidemia Chronic tobacco use Chronic alcohol abuse SANA Hypothyroidism COPD with emphysema Chronic back pain PTSD Chronic anemia unknown etiology Gastroesophageal reflux disease Pulmonary embolus Consultants: Surgery: Dr. Gaye Gordon testing done: ----- -Labwork: See above 05/13/2020 WBC 8.9, hemoglobin 11.4, hematocrit 36.8, elevated indices, RDW of 51.0, platelet count 171, absolute neutrophil count elevated at 7.8. Electrolytes all within normal limits except anion gap of 2, BUN of 2, creatinine 0.68 with estimated GFR of 97. Glucose 148, calcium 8.2. Bilirubin normal, AST 162, ALT 139, alk phosphatase 81 normal, total protein and albumin low 6.3, 2.1 respectively ----- -Imaging: As above 05/12/2020 hepatobiliary scan nuclear medicine: No scintigraphic evidence of cholecystitis or biliary obstruction ----- -Cardiac: ----- -Other: ----- Procedures/ Surgery: Surgery: Laparoscopic cholecystectomy with surgical findings of thickened gallbladder wall with areas of gangrene, enlarged liver with fatty infiltration ascites Hospital course: As above patient was admitted, IV fluid, pain management, taken to surgery. Patient had successful recovery and discharged in a stable condition. Instructions were to return to activity but no driving while taking narcotic medication Medication Reconciliation: Completed Patient was given oxycodone 5 mg every 12 hours #10 documented as of this encounter (statuses as of 01/04/2022) [facility]11-13-2021 History of Past illness Narrative* Problem Noted Date Resolved Date Encounter for support and coordination of transi on of care 05/02/2021 07/23/2021 Overview: Hospital discharge summary: Date of admission 05/01/2021 Date of discharge: Facility: [facility] 05/01/2021 presented to the emergency room with acute alcohol intoxication, initial alcohol level 7-8. Acknowledges over the last 5 months drinking 15 packs a day at 8% alcohol (marcin samaniego). Vital signs 96.6 [id number]-[id number]/73-98%. Appearance was no acute distress. WBC 7.9 Hgb 13.8 HCT 39.7 PLT 306. NA 130 2L K3.7 CL 90 6L CO2 26.0 BUN 20.5H CRE 0.93 GLU 111 Admitted from ER to detox unit Active problem list: 1. Alcohol dependence: Started on phenobarbital, gabapentin as needed dicyclomine as needed, Vistaril as needed, Imodium as needed, trazodone as needed, Zofran as needed, scheduled thiamine and scheduled folic acid. 2. Tobacco abuse: Nicotine patch prescribed, tobacco withheld. 3. Marijuana abuse: Counseled 4. Anxiety depression, PTSD: Continue home medications 5. COPD with home oxygen use: Stable, continue supplements duration O2 with continuous pulse oximetry per patient. 6. Hyponatremia chronic: Stable 7 DVT risk low: Encourage ambulation. Mild protein-calorie malnutrition 08/26/2020 11/12/2021 Encounter for support and coordination of transi tion of care 05/15/2020 05/02/2021 Overview: HOSPITAL/ER FOLLOW UP Which facility: [facility] Dates of visit: 05/10-05/13/2020 Preadmission evaluation: ER with right-sided abdominal pain over 2-1/2 hours, 10 out of 10. Worse with coughing. States she vomited 20 times the day before, with episodes of diarrhea over the past 2 days. Had used Imodium which improved diarrhea. No known exposures to Covid. Also identified chest pain which started approximately 2:00 that afternoon. Subjective fever and chills, chronic cough that is unchanged. Patient was afebrile with temp of 99.4 Fahrenheit, heart rate of 95, blood pressure 147/92. O2 saturation 94% but patient was started on O2 at 2 L per nasal cannula abdominal exam with severe tenderness over epigastric and right upper quadrant and right lower quadrant. No distention. CBC showed white count of 15.2 with neutrophils of 70. Hemoglobin 14.9, platelet 227, CMP within normal limits except for sodium of 134, glucose 107, total bili 1.5, AST and ALT 5 /277, alk phos 122, troponin negative. Lipase 170. Covid rapid test negative. Ethanol 64. Chest x-ray with generalized hyperinflation, no acute findings. CT of abdomen pelvis without contrast demonstrated severe fatty liver, mild hepatomegaly, normal gallbladder, exophytic isodense nodule on the lower pole of the right kidney, mild bilateral fatty groin hernia. Appendix considered normal. Ultrasound of gallbladder demonstrated partially distended gallbladder with a positive sonographic Kennedy sign, no gallstones. Also identified mild perihepatic ascites. In ER patient was given IV Zofran, morphine 4 mg x 2 IV, Ativan 1 mg IV x1. Primary Diagnosis/es: Acute cholecystitis Elevated LFTs Secondary Diagnosis/es: Anxiety depression Hyperlipidemia Chronic tobacco use Chronic alcohol abuse SANA Hypothyroidism COPD with emphysema Chronic back pain PTSD Chronic anemia unknown etiology Gastroesophageal reflux disease Pulmonary embolus Consultants: Surgery: Dr. Gaye Gordon testing done: ----- -Labwork: See above 05/13/2020 WBC 8.9, hemoglobin 11.4, hematocrit 36.8, elevated indices, RDW of 51.0, platelet count 171, absolute neutrophil count elevated at 7.8. Electrolytes all within normal limits except anion gap of 2, BUN of 2, creatinine 0.68 with estimated GFR of 97. Glucose 148, calcium 8.2. Bilirubin normal, AST 162, ALT 139, alk phosphatase 81 normal, total protein and albumin low 6.3, 2.1 respectively ----- -Imaging: As above 05/12/2020 hepatobiliary scan nuclear medicine: No scintigraphic evidence of cholecystitis or biliary obstruction ----- -Cardiac: ----- -Other: ----- Procedures/ Surgery: Surgery: Laparoscopic cholecystectomy with surgical findings of thickened gallbladder wall with areas of gangrene, enlarged liver with fatty infiltration ascites Hospital course: As above patient was admitted, IV fluid, pain management, taken to surgery. Patient had successful recovery and discharged in a stable condition. Instructions were to return to activity but no driving while taking narcotic medication Medication Reconciliation: Completed Patient was given oxycodone 5 mg every 12 hours #10 documented as of this encounter (statuses as of 01/04/2022) [facility]11-13-2021 History of Past illness Narrative* Problem Noted Date Resolved Date Encounter for support and coordination of transi tion of care 05/02/2021 07/23/2021 Overview: Hospital discharge summary: Date of admission 05/01/2021 Date of discharge: Facility: [facility] 05/01/2021 presented to the emergency room with acute alcohol intoxication, initial alcohol level 7-8. Acknowledges over the last 5 months drinking 15 packs a day at 8% alcohol (nataidan samaniego). Vital signs 96.6 [id number]-[id number]/73-98%. Appearance was no acute distress. WBC 7.9 Hgb 13.8 HCT 39.7 PLT 306. NA 130 2L K3.7 CL 90 6L CO2 26.0 BUN 20.5H CRE 0.93 GLU 111 Admitted from ER to detox unit Active problem list: 1. Alcohol dependence: Started on phenobarbital, gabapentin as needed dicyclomine as needed, Vistaril as needed, Imodium as needed, trazodone as needed, Zofran as needed, scheduled thiamine and scheduled folic acid. 2. Tobacco abuse: Nicotine patch prescribed, tobacco withheld. 3. Marijuana abuse: Counseled 4. Anxiety depression, PTSD: Continue home medications 5. COPD with home oxygen use: Stable, continue supplements duration O2 with continuous pulse oximetry per patient. 6. Hyponatremia chronic: Stable 7 DVT risk low: Encourage ambulation. Mild protein-calorie malnutrition 08/26/2020 11/12/2021 Encounter for support and coordination of transi tion of care 05/15/2020 05/02/2021 Overview: HOSPITAL/ER FOLLOW UP Which facility: [facility] Dates of visit: 05/10-05/13/2020 Preadmission evaluation: ER with right-sided abdominal pain over 2-1/2 hours, 10 out of 10. Worse with coughing. States she vomited 20 times the day before, with episodes of diarrhea over the past 2 days. Had used Imodium which improved diarrhea. No known exposures to Covid. Also identified chest pain which started approximately 2:00 that afternoon. Subjective fever and chills, chronic cough that is unchanged. Patient was afebrile with temp of 99.4 Fahrenheit, heart rate of 95, blood pressure 147/92. O2 saturation 94% but patient was started on O2 at 2 L per nasal cannula abdominal exam with severe tenderness over epigastric and right upper quadrant and right lower quadrant. No distention. CBC showed white count of 15.2 with neutrophils of 70. Hemoglobin 14.9, platelet 227, CMP within normal limits except for sodium of 134, glucose 107, total bili 1.5, AST and ALT 5 5/277, alk phos 122, troponin negative. Lipase 170. Covid rapid test negative. Ethanol 64. Chest x-ray with generalized hyperinflation, no acute findings. CT of abdomen pelvis without contrast demonstrated severe fatty liver, mild hepatomegaly, normal gallbladder, exophytic isodense nodule on the lower pole of the right kidney, mild bilateral fatty groin hernia. Appendix considered normal. Ultrasound of gallbladder demonstrated partially distended gallbladder with a positive sonographic Kennedy sign, no gallstones. Also identified mild perihepatic ascites. In ER patient was given IV Zofran, morphine 4 mg x 2 IV, Ativan 1 mg IV x1. Primary Diagnosis/es: Acute cholecystitis Elevated LFTs Secondary Diagnosis/es: Anxiety depression Hyperlipidemia Chronic tobacco use Chronic alcohol abuse SANA Hypothyroidism COPD with emphysema Chronic back pain PTSD Chronic anemia unknown etiology Gastroesophageal reflux disease Pulmonary embolus Consultants: Surgery: Dr. Gaye Gordon testing done: ----- -Labwork: See above 05/13/2020 WBC 8.9, hemoglobin 11.4, hematocrit 36.8, elevated indices, RDW of 51.0, platelet count 171, absolute neutrophil count elevated at 7.8. Electrolytes all within normal limits except anion gap of 2, BUN of 2, creatinine 0.68 with estimated GFR of 97. Glucose 148, calcium 8.2. Bilirubin normal, AST 162, ALT 139, alk phosphatase 81 normal, total protein and albumin low 6.3, 2.1 respectively ----- -Imaging: As above 05/12/2020 hepatobiliary scan nuclear medicine: No scintigraphic evidence of cholecystitis or biliary obstruction ----- -Cardiac: ----- -Other: ----- Procedures/ Surgery: Surgery: Laparoscopic cholecystectomy with surgical findings of thickened gallbladder wall with areas of gangrene, enlarged liver with fatty infiltration ascites Hospital course: As above patient was admitted, IV fluid, pain management, taken to surgery. Patient had successful recovery and discharged in a stable condition. Instructions were to return to activity but no driving while taking narcotic medication Medication Reconciliation: Completed Patient was given oxycodone 5 mg every 12 hours #10 documented as of this encounter (statuses as of 01/14/2022) [facility]11-13-2021 History of Past illness Narrative* Problem Noted Date Resolved Date Encounter for support and coordination of transi tion of care 05/02/2021 07/23/2021 Overview: Hospital discharge summary: Date of admission 05/01/2021 Date of discharge: Facility: [facility] 05/01/2021 presented to the emergency room with acute alcohol intoxication, initial alcohol level 7-8. Acknowledges over the last 5 months drinking 15 packs a day at 8% alcohol (natty dadalfa). Vital signs 96.6 [id number]/73-98%. Appearance was no acute distress. WBC 7.9 Hgb 13.8 HCT 39.7 PLT 306. NA 130 2L K3.7 CL 90 6L CO2 26.0 BUN 20.5H CRE 0.93 GLU 111 Admitted from ER to detox unit Active problem list: 1. Alcohol dependence: Started on phenobarbital, gabapentin as needed dicyclomine as needed, Vistaril as needed, Imodium as needed, trazodone as needed, Zofran as needed, scheduled thiamine and scheduled folic acid. 2. Tobacco abuse: Nicotine patch prescribed, tobacco withheld. 3. Marijuana abuse: Counseled 4. Anxiety depression, PTSD: Continue home medications 5. COPD with home oxygen use: Stable, continue supplements duration O2 with continuous pulse oximetry per patient. 6. Hyponatremia chronic: Stable 7 DVT risk low: Encourage ambulation. Mild protein-calorie malnutrition 08/26/2020 11/12/2021 Encounter for support and coordination of transi tion of care 05/15/2020 05/02/2021 Overview: HOSPITAL/ER FOLLOW UP Which facility: [facility] Dates of visit: 05/10-05/13/2020 Preadmission evaluation: ER with right-sided abdominal pain over 2-1/2 hours, 10 out of 10. Worse with coughing. States she vomited 20 times the day before, with episodes of diarrhea over the past 2 days. Had used Imodium which improved diarrhea. No known exposures to Covid. Also identified chest pain which started approximately 2:00 that afternoon. Subjective fever and chills, chronic cough that is unchanged. Patient was afebrile with temp of 99.4 Fahrenheit, heart rate of 95, blood pressure 147/92. O2 saturation 94% but patient was started on O2 at 2 L per nasal cannula abdominal exam with severe tenderness over epigastric and right upper quadrant and right lower quadrant. No distention. CBC showed white count of 15.2 with neutrophils of 70. Hemoglobin 14.9, platelet 227, CMP within normal limits except for sodium of 134, glucose 107, total bili 1.5, AST and ALT 5 5/277, alk phos 122, troponin negative. Lipase 170. Covid rapid test negative. Ethanol 64. Chest x-ray with generalized hyperinflation, no acute findings. CT of abdomen pelvis without contrast demonstrated severe fatty liver, mild hepatomegaly, normal gallbladder, exophytic isodense nodule on the lower pole of the right kidney, mild bilateral fatty groin hernia. Appendix considered normal. Ultrasound of gallbladder demonstrated partially distended gallbladder with a positive sonographic Kennedy sign, no gallstones. Also identified mild perihepatic ascites. In ER patient was given IV Zofran, morphine 4 mg x 2 IV, Ativan 1 mg IV x1. Primary Diagnosis/es: Acute cholecystitis Elevated LFTs Secondary Diagnosis/es: Anxiety depression Hyperlipidemia Chronic tobacco use Chronic alcohol abuse SANA Hypothyroidism COPD with emphysema Chronic back pain PTSD Chronic anemia unknown etiology Gastroesophageal reflux disease Pulmonary embolus Consultants: Surgery: Dr. Gaye Gordon testing done: ----- -Labwork: See above 05/13/2020 WBC 8.9, hemoglobin 11.4, hematocrit 36.8, elevated indices, RDW of 51.0, platelet count 171, absolute neutrophil count elevated at 7.8. Electrolytes all within normal limits except anion gap of 2, BUN of 2, creatinine 0.68 with estimated GFR of 97. Glucose 148, calcium 8.2. Bilirubin normal, AST 162, ALT 139, alk phosphatase 81 normal, total protein and albumin low 6.3, 2.1 respectively ----- -Imaging: As above 05/12/2020 hepatobiliary scan nuclear medicine: No scintigraphic evidence of cholecystitis or biliary obstruction ----- -Cardiac: ----- -Other: ----- Procedures/ Surgery: Surgery: Laparoscopic cholecystectomy with surgical findings of thickened gallbladder wall with areas of gangrene, enlarged liver with fatty infiltration ascites Hospital course: As above patient was admitted, IV fluid, pain management, taken to surgery. Patient had successful recovery and discharged in a stable condition. Instructions were to return to activity but no driving while taking narcotic medication Medication Reconciliation: Completed Patient was given oxycodone 5 mg every 12 hours #10 documented as of this encounter (statuses as of 01/18/2022) [facility]11-13-2021 History of Past illness Narrative* Problem Noted Date Resolved Date Encounter for support and coordination of transi tion of care 05/02/2021 07/23/2021 Overview: Hospital discharge summary: Date of admission 05/01/2021 Date of discharge: Facility: [facility] 05/01/2021 presented to the emergency room with acute alcohol intoxication, initial alcohol level 7-8. Acknowledges over the last 5 months drinking 15 packs a day at 8% alcohol (marcin samaniego). Vital signs 96.6 [id number]/73-98%. Appearance was no acute distress. WBC 7.9-Hgb 13.8-HCT 39.7-PLT 306. NA 130 2L-K3.7-CL 90 6L-CO2 26.0-BUN 20.5H- CRE 0.93-GLU 111 Admitted from ER to detox unit Active problem list: 1. Alcohol dependence: Started on phenobarbital, gabapentin as needed dicyclomine as needed, Vistaril as needed, Imodium as needed, trazodone as needed, Zofran as needed, scheduled thiamine and scheduled folic acid. 2. Tobacco abuse: Nicotine patch prescribed, tobacco withheld. 3. Marijuana abuse: Counseled 4. Anxiety depression, PTSD: Continue home medications 5. COPD with home oxygen use: Stable, continue supplements duration O2 with continuous pulse oximetry per patient. 6. Hyponatremia chronic: Stable 7 DVT risk low: Encourage ambulation. Mild protein-calorie malnutrition 08/26/2020 11/12/2021 Encounter for support and coordination of transi tion of care 05/15/2020 05/02/2021 Overview: HOSPITAL/ER FOLLOW UP Which facility: [facility] Dates of visit: 05/10-05/13/2020 Preadmission evaluation: ER with right-sided abdominal pain over 2-1/2 hours, 10 out of 10. Worse with coughing. States she vomited 20 times the day before, with episodes of diarrhea over the past 2 days. Had used Imodium which improved diarrhea. No known exposures to Covid. Also identified chest pain which started approximately 2:00 that afternoon. Subjective fever and chills, chronic cough that is unchanged. Patient was afebrile with temp of 99.4 Fahrenheit, heart rate of 95, blood pressure 147/92. O2 saturation 94% but patient was started on O2 at 2 L per nasal cannula abdominal exam with severe tenderness over epigastric and right upper quadrant and right lower quadrant. No distention. CBC showed white count of 15.2 with neutrophils of 70. Hemoglobin 14.9, platelet 227, CMP within normal limits except for sodium of 134, glucose 107, total bili 1.5, AST and ALT 5 5/277, alk phos 122, troponin negative. Lipase 170. Covid rapid test negative. Ethanol 64. Chest x-ray with generalized hyperinflation, no acute findings. CT of abdomen pelvis without contrast demonstrated severe fatty liver, mild hepatomegaly, normal gallbladder, exophytic isodense nodule on the lower pole of the right kidney, mild bilateral fatty groin hernia. Appendix considered normal. Ultrasound of gallbladder demonstrated partially distended gallbladder with a positive sonographic Kennedy sign, no gallstones. Also identified mild perihepatic ascites. In ER patient was given IV Zofran, morphine 4 mg x 2 IV, Ativan 1 mg IV x1. Primary Diagnosis/es: Acute cholecystitis Elevated LFTs Secondary Diagnosis/es: Anxiety depression Hyperlipidemia Chronic tobacco use Chronic alcohol abuse SANA Hypothyroidism COPD with emphysema Chronic back pain PTSD Chronic anemia unknown etiology Gastroesophageal reflux disease Pulmonary embolus Consultants: Surgery: Dr. Gaye Gordon testing done: ----- -Labwork: See above 05/13/2020 WBC 8.9, hemoglobin 11.4, hematocrit 36.8, elevated indices, RDW of 51.0, platelet count 171, absolute neutrophil count elevated at 7.8. Electrolytes all within normal limits except anion gap of 2, BUN of 2, creatinine 0.68 with estimated GFR of 97. Glucose 148, calcium 8.2. Bilirubin normal, AST 162, ALT 139, alk phosphatase 81 normal, total protein and albumin low 6.3, 2.1 respectively ----- -Imaging: As above 05/12/2020 hepatobiliary scan nuclear medicine: No scintigraphic evidence of cholecystitis or biliary obstruction ----- -Cardiac: ----- -Other: ----- Procedures/ Surgery: Surgery: Laparoscopic cholecystectomy with surgical findings of thickened gallbladder wall with areas of gangrene, enlarged liver with fatty infiltration ascites Hospital course: As above patient was admitted, IV fluid, pain management, taken to surgery. Patient had successful recovery and discharged in a stable condition. Instructions were to return to activity but no driving while taking narcotic medication Medication Reconciliation: Completed Patient was given oxycodone 5 mg every 12 hours #10 documented as of this encounter (statuses as of 01/27/2022) [facility]11-13-2021 History of Past illness Narrative* Problem Noted Date Resolved Date Encounter for support and coordination of transi tion of care 05/02/2021 07/23/2021 Overview: Hospital discharge summary: Date of admission 05/01/2021 Date of discharge: Facility: [facility] 05/01/2021 presented to the emergency room with acute alcohol intoxication, initial alcohol level 7-8. Acknowledges over the last 5 months drinking 15 packs a day at 8% alcohol (marcin samaniego). Vital signs 96.6 [id number]-78-18-111/73-98%. Appearance was no acute distress. WBC 7.9-Hgb 13.8-HCT 39.7-PLT 306. NA 130 2L-K3.7-CL 90 6L-CO2 26.0-BUN 20.5H- CRE 0.93-GLU 111 Admitted from ER to detox unit Active problem list: 1. Alcohol dependence: Started on phenobarbital, gabapentin as needed dicyclomine as needed, Vistaril as needed, Imodium as needed, trazodone as needed, Zofran as needed, scheduled thiamine and scheduled folic acid. 2. Tobacco abuse: Nicotine patch prescribed, tobacco withheld. 3. Marijuana abuse: Counseled 4. Anxiety depression, PTSD: Continue home medications 5. COPD with home oxygen use: Stable, continue supplements duration O2 with continuous pulse oximetry per patient. 6. Hyponatremia chronic: Stable 7 DVT risk low: Encourage ambulation. Mild protein-calorie malnutrition 08/26/2020 11/12/2021 Encounter for support and coordination of transi tion of care 05/15/2020 05/02/2021 Overview: HOSPITAL/ER FOLLOW UP Which facility: [facility] Dates of visit: 05/10-05/13/2020 Preadmission evaluation: ER with right-sided abdominal pain over 2-1/2 hours, 10 out of 10. Worse with coughing. States she vomited 20 times the day before, with episodes of diarrhea over the past 2 days. Had used Imodium which improved diarrhea. No known exposures to Covid. Also identified chest pain which started approximately 2:00 that afternoon. Subjective fever and chills, chronic cough that is unchanged. Patient was afebrile with temp of 99.4 Fahrenheit, heart rate of 95, blood pressure 147/92. O2 saturation 94% but patient was started on O2 at 2 L per nasal cannula abdominal exam with severe tenderness over epigastric and right upper quadrant and right lower quadrant. No distention. CBC showed white count of 15.2 with neutrophils of 70. Hemoglobin 14.9, platelet 227, CMP within normal limits except for sodium of 134, glucose 107, total bili 1.5, AST and ALT 5 5/277, alk phos 122, troponin negative. Lipase 170. Covid rapid test negative. Ethanol 64. Chest x-ray with generalized hyperinflation, no acute findings. CT of abdomen pelvis without contrast demonstrated severe fatty liver, mild hepatomegaly, normal gallbladder, exophytic isodense nodule on the lower pole of the right kidney, mild bilateral fatty groin hernia. Appendix considered normal. Ultrasound of gallbladder demonstrated partially distended gallbladder with a positive sonographic Kennedy sign, no gallstones. Also identified mild perihepatic ascites. In ER patient was given IV Zofran, morphine 4 mg x 2 IV, Ativan 1 mg IV x1. Primary Diagnosis/es: Acute cholecystitis Elevated LFTs Secondary Diagnosis/es: Anxiety depression Hyperlipidemia Chronic tobacco use Chronic alcohol abuse SANA Hypothyroidism COPD with emphysema Chronic back pain PTSD Chronic anemia unknown etiology Gastroesophageal reflux disease Pulmonary embolus Consultants: Surgery: Dr. Gaye Gordon testing done: ----- -Labwork: See above 05/13/2020 WBC 8.9, hemoglobin 11.4, hematocrit 36.8, elevated indices, RDW of 51.0, platelet count 171, absolute neutrophil count elevated at 7.8. Electrolytes all within normal limits except anion gap of 2, BUN of 2, creatinine 0.68 with estimated GFR of 97. Glucose 148, calcium 8.2. Bilirubin normal, AST 162, ALT 139, alk phosphatase 81 normal, total protein and albumin low 6.3, 2.1 respectively ----- -Imaging: As above 05/12/2020 hepatobiliary scan nuclear medicine: No scintigraphic evidence of cholecystitis or biliary obstruction ----- -Cardiac: ----- -Other: ----- Procedures/ Surgery: Surgery: Laparoscopic cholecystectomy with surgical findings of thickened gallbladder wall with areas of gangrene, enlarged liver with fatty infiltration ascites Hospital course: As above patient was admitted, IV fluid, pain management, taken to surgery. Patient had successful recovery and discharged in a stable condition. Instructions were to return to activity but no driving while taking narcotic medication Medication Reconciliation: Completed Patient was given oxycodone 5 mg every 12 hours #10 documented as of this encounter (statuses as of 01/29/2022) [facility]11-13-2021 History of Past illness Narrative* Problem Noted Date Resolved Date Encounter for support and coordination of transi tion of care 05/02/2021 07/23/2021 Overview: Hospital discharge summary: Date of admission 05/01/2021 Date of discharge: Facility: [facility] 05/01/2021 presented to the emergency room with acute alcohol intoxication, initial alcohol level 7-8. Acknowledges over the last 5 months drinking 15 packs a day at 8% alcohol (nataidan samaniego). Vital signs 96.6 F-78-18-111/73-98%. Appearance was no acute distress. WBC 7.9-Hgb 13.8-HCT 39.7-PLT 306. NA 130 2L-K3.7-CL 90 6L-CO2 26.0-BUN 20.5H- CRE 0.93-GLU 111 Admitted from ER to detox unit Active problem list: 1. Alcohol dependence: Started on phenobarbital, gabapentin as needed dicyclomine as needed, Vistaril as needed, Imodium as needed, trazodone as needed, Zofran as needed, scheduled thiamine and scheduled folic acid. 2. Tobacco abuse: Nicotine patch prescribed, tobacco withheld. 3. Marijuana abuse: Counseled 4. Anxiety depression, PTSD: Continue home medications 5. COPD with home oxygen use: Stable, continue supplements duration O2 with continuous pulse oximetry per patient. 6. Hyponatremia chronic: Stable 7 DVT risk low: Encourage ambulation. Mild protein-calorie malnutrition 08/26/2020 11/12/2021 Encounter for support and coordination of transi tion of care 05/15/2020 05/02/2021 Overview: HOSPITAL/ER FOLLOW UP Which facility: [facility] Dates of visit: 05/10-05/13/2020 Preadmission evaluation: ER with right-sided abdominal pain over 2-1/2 hours, 10 out of 10. Worse with coughing. States she vomited 20 times the day before, with episodes of diarrhea over the past 2 days. Had used Imodium which improved diarrhea. No known exposures to Covid. Also identified chest pain which started approximately 2:00 that afternoon. Subjective fever and chills, chronic cough that is unchanged. Patient was afebrile with temp of 99.4 Fahrenheit, heart rate of 95, blood pressure 147/92. O2 saturation 94% but patient was started on O2 at 2 L per nasal cannula abdominal exam with severe tenderness over epigastric and right upper quadrant and right lower quadrant. No distention. CBC showed white count of 15.2 with neutrophils of 70. Hemoglobin 14.9, platelet 227, CMP within normal limits except for sodium of 134, glucose 107, total bili 1.5, AST and ALT 5 5/277, alk phos 122, troponin negative. Lipase 170. Covid rapid test negative. Ethanol 64. Chest x-ray with generalized hyperinflation, no acute findings. CT of abdomen pelvis without contrast demonstrated severe fatty liver, mild hepatomegaly, normal gallbladder, exophytic isodense nodule on the lower pole of the right kidney, mild bilateral fatty groin hernia. Appendix considered normal. Ultrasound of gallbladder demonstrated partially distended gallbladder with a positive sonographic Kennedy sign, no gallstones. Also identified mild perihepatic ascites. In ER patient was given IV Zofran, morphine 4 mg x 2 IV, Ativan 1 mg IV x1. Primary Diagnosis/es: Acute cholecystitis Elevated LFTs Secondary Diagnosis/es: Anxiety depression Hyperlipidemia Chronic tobacco use Chronic alcohol abuse SANA Hypothyroidism COPD with emphysema Chronic back pain PTSD Chronic anemia unknown etiology Gastroesophageal reflux disease Pulmonary embolus Consultants: Surgery: Dr. Gaye Gordon testing done: ----- -Labwork: See above 05/13/2020 WBC 8.9, hemoglobin 11.4, hematocrit 36.8, elevated indices, RDW of 51.0, platelet count 171, absolute neutrophil count elevated at 7.8. Electrolytes all within normal limits except anion gap of 2, BUN of 2, creatinine 0.68 with estimated GFR of 97. Glucose 148, calcium 8.2. Bilirubin normal, AST 162, ALT 139, alk phosphatase 81 normal, total protein and albumin low 6.3, 2.1 respectively ----- -Imaging: As above 05/12/2020 hepatobiliary scan nuclear medicine: No scintigraphic evidence of cholecystitis or biliary obstruction ----- -Cardiac: ----- -Other: ----- Procedures/ Surgery: Surgery: Laparoscopic cholecystectomy with surgical findings of thickened gallbladder wall with areas of gangrene, enlarged liver with fatty infiltration ascites Hospital course: As above patient was admitted, IV fluid, pain management, taken to surgery. Patient had successful recovery and discharged in a stable condition. Instructions were to return to activity but no driving while taking narcotic medication Medication Reconciliation: Completed Patient was given oxycodone 5 mg every 12 hours #10 documented as of this encounter (statuses as of 01/29/2022) [facility]21 History of Past illness Narrative* Problem Noted Date Resolved Date Encounter for support and coordination of transi tion of care 05/02/2021 07/23/2021 Overview: Hospital discharge summary: Date of admission 05/01/2021 Date of discharge: Facility: [facility] 05/01/2021 presented to the emergency room with acute alcohol intoxication, initial alcohol level 7-8. Acknowledges over the last 5 months drinking 15 packs a day at 8% alcohol (marcin samaniego). Vital signs 96.6 F-78-18-111/73-98%. Appearance was no acute distress. WBC 7.9-Hgb 13.8-HCT 39.7-PLT 306. NA 130 2L-K3.7-CL 90 6L-CO2 26.0-BUN 20.5H- CRE 0.93-GLU 111 Admitted from ER to detox unit Active problem list: 1. Alcohol dependence: Started on phenobarbital, gabapentin as needed dicyclomine as needed, Vistaril as needed, Imodium as needed, trazodone as needed, Zofran as needed, scheduled thiamine and scheduled folic acid. 2. Tobacco abuse: Nicotine patch prescribed, tobacco withheld. 3. Marijuana abuse: Counseled 4. Anxiety depression, PTSD: Continue home medications 5. COPD with home oxygen use: Stable, continue supplements duration O2 with continuous pulse oximetry per patient. 6. Hyponatremia chronic: Stable 7 DVT risk low: Encourage ambulation. Mild protein-calorie malnutrition 08/26/2020 11/12/2021 Encounter for support and coordination of transi tion of care 05/15/2020 05/02/2021 Overview: HOSPITAL/ER FOLLOW UP Which facility: [facility] Dates of visit: 05/10-05/13/2020 Preadmission evaluation: ER with right-sided abdominal pain over 2-1/2 hours, 10 out of 10. Worse with coughing. States she vomited 20 times the day before, with episodes of diarrhea over the past 2 days. Had used Imodium which improved diarrhea. No known exposures to Covid. Also identified chest pain which started approximately 2:00 that afternoon. Subjective fever and chills, chronic cough that is unchanged. Patient was afebrile with temp of 99.4 Fahrenheit, heart rate of 95, blood pressure 147/92. O2 saturation 94% but patient was started on O2 at 2 L per nasal cannula abdominal exam with severe tenderness over epigastric and right upper quadrant and right lower quadrant. No distention. CBC showed white count of 15.2 with neutrophils of 70. Hemoglobin 14.9, platelet 227, CMP within normal limits except for sodium of 134, glucose 107, total bili 1.5, AST and ALT 5 5/277, alk phos 122, troponin negative. Lipase 170. Covid rapid test negative. Ethanol 64. Chest x-ray with generalized hyperinflation, no acute findings. CT of abdomen pelvis without contrast demonstrated severe fatty liver, mild hepatomegaly, normal gallbladder, exophytic isodense nodule on the lower pole of the right kidney, mild bilateral fatty groin hernia. Appendix considered normal. Ultrasound of gallbladder demonstrated partially distended gallbladder with a positive sonographic Kennedy sign, no gallstones. Also identified mild perihepatic ascites. In ER patient was given IV Zofran, morphine 4 mg x 2 IV, Ativan 1 mg IV x1. Primary Diagnosis/es: Acute cholecystitis Elevated LFTs Secondary Diagnosis/es: Anxiety depression Hyperlipidemia Chronic tobacco use Chronic alcohol abuse SANA Hypothyroidism COPD with emphysema Chronic back pain PTSD Chronic anemia unknown etiology Gastroesophageal reflux disease Pulmonary embolus Consultants: Surgery: Dr. Gaye Gordon testing done: ----- -Labwork: See above 05/13/2020 WBC 8.9, hemoglobin 11.4, hematocrit 36.8, elevated indices, RDW of 51.0, platelet count 171, absolute neutrophil count elevated at 7.8. Electrolytes all within normal limits except anion gap of 2, BUN of 2, creatinine 0.68 with estimated GFR of 97. Glucose 148, calcium 8.2. Bilirubin normal, AST 162, ALT 139, alk phosphatase 81 normal, total protein and albumin low 6.3, 2.1 respectively ----- -Imaging: As above 05/12/2020 hepatobiliary scan nuclear medicine: No scintigraphic evidence of cholecystitis or biliary obstruction ----- -Cardiac: ----- -Other: ----- Procedures/ Surgery: Surgery: Laparoscopic cholecystectomy with surgical findings of thickened gallbladder wall with areas of gangrene, enlarged liver with fatty infiltration ascites Hospital course: As above patient was admitted, IV fluid, pain management, taken to surgery. Patient had successful recovery and discharged in a stable condition. Instructions were to return to activity but no driving while taking narcotic medication Medication Reconciliation: Completed Patient was given oxycodone 5 mg every 12 hours #10 documented as of this encounter (statuses as of 02/05/2022) [facility]11-13-2021 History of Past illness Narrative* Problem Noted Date Resolved Date Encounter for support and coordination of transi tion of care 05/02/2021 07/23/2021 Overview: Hospital discharge summary: Date of admission 05/01/2021 Date of discharge: Facility: [facility] 05/01/2021 presented to the emergency room with acute alcohol intoxication, initial alcohol level 7-8. Acknowledges over the last 5 months drinking 15 packs a day at 8% alcohol (marcin samaniego). Vital signs 96.6 F-78-18-111/73-98%. Appearance was no acute distress. WBC 7.9-Hgb 13.8-HCT 39.7-PLT 306. NA 130 2L-K3.7-CL 90 6L-CO2 26.0-BUN 20.5H- CRE 0.93-GLU 111 Admitted from ER to detox unit Active problem list: 1. Alcohol dependence: Started on phenobarbital, gabapentin as needed dicyclomine as needed, Vistaril as needed, Imodium as needed, trazodone as needed, Zofran as needed, scheduled thiamine and scheduled folic acid. 2. Tobacco abuse: Nicotine patch prescribed, tobacco withheld. 3. Marijuana abuse: Counseled 4. Anxiety depression, PTSD: Continue home medications 5. COPD with home oxygen use: Stable, continue supplements duration O2 with continuous pulse oximetry per patient. 6. Hyponatremia chronic: Stable 7 DVT risk low: Encourage ambulation. Mild protein-calorie malnutrition 08/26/2020 11/12/2021 Encounter for support and coordination of transi tion of care 05/15/2020 05/02/2021 Overview: HOSPITAL/ER FOLLOW UP Which facility: [facility] Dates of visit: 05/10-05/13/2020 Preadmission evaluation: ER with right-sided abdominal pain over 2-1/2 hours, 10 out of 10. Worse with coughing. States she vomited 20 times the day before, with episodes of diarrhea over the past 2 days. Had used Imodium which improved diarrhea. No known exposures to Covid. Also identified chest pain which started approximately 2:00 that afternoon. Subjective fever and chills, chronic cough that is unchanged. Patient was afebrile with temp of 99.4 Fahrenheit, heart rate of 95, blood pressure 147/92. O2 saturation 94% but patient was started on O2 at 2 L per nasal cannula abdominal exam with severe tenderness over epigastric and right upper quadrant and right lower quadrant. No distention. CBC showed white count of 15.2 with neutrophils of 70. Hemoglobin 14.9, platelet 227, CMP within normal limits except for sodium of 134, glucose 107, total bili 1.5, AST and ALT 5 5/277, alk phos 122, troponin negative. Lipase 170. Covid rapid test negative. Ethanol 64. Chest x-ray with generalized hyperinflation, no acute findings. CT of abdomen pelvis without contrast demonstrated severe fatty liver, mild hepatomegaly, normal gallbladder, exophytic isodense nodule on the lower pole of the right kidney, mild bilateral fatty groin hernia. Appendix considered normal. Ultrasound of gallbladder demonstrated partially distended gallbladder with a positive sonographic Kennedy sign, no gallstones. Also identified mild perihepatic ascites. In ER patient was given IV Zofran, morphine 4 mg x 2 IV, Ativan 1 mg IV x1. Primary Diagnosis/es: Acute cholecystitis Elevated LFTs Secondary Diagnosis/es: Anxiety depression Hyperlipidemia Chronic tobacco use Chronic alcohol abuse SANA Hypothyroidism COPD with emphysema Chronic back pain PTSD Chronic anemia unknown etiology Gastroesophageal reflux disease Pulmonary embolus Consultants: Surgery: Dr. Gaye Gordon testing done: ----- -Labwork: See above 05/13/2020 WBC 8.9, hemoglobin 11.4, hematocrit 36.8, elevated indices, RDW of 51.0, platelet count 171, absolute neutrophil count elevated at 7.8. Electrolytes all within normal limits except anion gap of 2, BUN of 2, creatinine 0.68 with estimated GFR of 97. Glucose 148, calcium 8.2. Bilirubin normal, AST 162, ALT 139, alk phosphatase 81 normal, total protein and albumin low 6.3, 2.1 respectively ----- -Imaging: As above 05/12/2020 hepatobiliary scan nuclear medicine: No scintigraphic evidence of cholecystitis or biliary obstruction ----- -Cardiac: ----- -Other: ----- Procedures/ Surgery: Surgery: Laparoscopic cholecystectomy with surgical findings of thickened gallbladder wall with areas of gangrene, enlarged liver with fatty infiltration ascites Hospital course: As above patient was admitted, IV fluid, pain management, taken to surgery. Patient had successful recovery and discharged in a stable condition. Instructions were to return to activity but no driving while taking narcotic medication Medication Reconciliation: Completed Patient was given oxycodone 5 mg every 12 hours #10 documented as of this encounter (statuses as of 02/11/2022) [facility]11-13-2021 History of Past illness Narrative* Problem Noted Date Resolved Date Encounter for support and coordination of transi tion of care 05/02/2021 07/23/2021 Overview: Hospital discharge summary: Date of admission 05/01/2021 Date of discharge: Facility: [facility] 05/01/2021 presented to the emergency room with acute alcohol intoxication, initial alcohol level 7-8. Acknowledges over the last 5 months drinking 15 packs a day at 8% alcohol (marcin samaniego). Vital signs 96.6 F-78-18-111/73-98%. Appearance was no acute distress. WBC 7.9-Hgb 13.8-HCT 39.7-PLT 306. NA 130 2L-K3.7-CL 90 6L-CO2 26.0-BUN 20.5H- CRE 0.93-GLU 111 Admitted from ER to detox unit Active problem list: 1. Alcohol dependence: Started on phenobarbital, gabapentin as needed dicyclomine as needed, Vistaril as needed, Imodium as needed, trazodone as needed, Zofran as needed, scheduled thiamine and scheduled folic acid. 2. Tobacco abuse: Nicotine patch prescribed, tobacco withheld. 3. Marijuana abuse: Counseled 4. Anxiety depression, PTSD: Continue home medications 5. COPD with home oxygen use: Stable, continue supplements duration O2 with continuous pulse oximetry per patient. 6. Hyponatremia chronic: Stable 7 DVT risk low: Encourage ambulation. Mild protein-calorie malnutrition 08/26/2020 11/12/2021 Encounter for support and coordination of transi tion of care 05/15/2020 05/02/2021 Overview: HOSPITAL/ER FOLLOW UP Which facility: [facility] Dates of visit: 05/10-05/13/2020 Preadmission evaluation: ER with right-sided abdominal pain over 2-1/2 hours, 10 out of 10. Worse with coughing. States she vomited 20 times the day before, with episodes of diarrhea over the past 2 days. Had used Imodium which improved diarrhea. No known exposures to Covid. Also identified chest pain which started approximately 2:00 that afternoon. Subjective fever and chills, chronic cough that is unchanged. Patient was afebrile with temp of 99.4 Fahrenheit, heart rate of 95, blood pressure 147/92. O2 saturation 94% but patient was started on O2 at 2 L per nasal cannula abdominal exam with severe tenderness over epigastric and right upper quadrant and right lower quadrant. No distention. CBC showed white count of 15.2 with neutrophils of 70. Hemoglobin 14.9, platelet 227, CMP within normal limits except for sodium of 134, glucose 107, total bili 1.5, AST and ALT 5 5/277, alk phos 122, troponin negative. Lipase 170. Covid rapid test negative. Ethanol 64. Chest x-ray with generalized hyperinflation, no acute findings. CT of abdomen pelvis without contrast demonstrated severe fatty liver, mild hepatomegaly, normal gallbladder, exophytic isodense nodule on the lower pole of the right kidney, mild bilateral fatty groin hernia. Appendix considered normal. Ultrasound of gallbladder demonstrated partially distended gallbladder with a positive sonographic Kennedy sign, no gallstones. Also identified mild perihepatic ascites. In ER patient was given IV Zofran, morphine 4 mg x 2 IV, Ativan 1 mg IV x1. Primary Diagnosis/es: Acute cholecystitis Elevated LFTs Secondary Diagnosis/es: Anxiety depression Hyperlipidemia Chronic tobacco use Chronic alcohol abuse SANA Hypothyroidism COPD with emphysema Chronic back pain PTSD Chronic anemia unknown etiology Gastroesophageal reflux disease Pulmonary embolus Consultants: Surgery: Dr. Gaye Gordon testing done: ----- -Labwork: See above 05/13/2020 WBC 8.9, hemoglobin 11.4, hematocrit 36.8, elevated indices, RDW of 51.0, platelet count 171, absolute neutrophil count elevated at 7.8. Electrolytes all within normal limits except anion gap of 2, BUN of 2, creatinine 0.68 with estimated GFR of 97. Glucose 148, calcium 8.2. Bilirubin normal, AST 162, ALT 139, alk phosphatase 81 normal, total protein and albumin low 6.3, 2.1 respectively ----- -Imaging: As above 05/12/2020 hepatobiliary scan nuclear medicine: No scintigraphic evidence of cholecystitis or biliary obstruction ----- -Cardiac: ----- -Other: ----- Procedures/ Surgery: Surgery: Laparoscopic cholecystectomy with surgical findings of thickened gallbladder wall with areas of gangrene, enlarged liver with fatty infiltration ascites Hospital course: As above patient was admitted, IV fluid, pain management, taken to surgery. Patient had successful recovery and discharged in a stable condition. Instructions were to return to activity but no driving while taking narcotic medication Medication Reconciliation: Completed Patient was given oxycodone 5 mg every 12 hours #10 documented as of this encounter (statuses as of 02/17/2022) [facility]11-13-2021 History of Past illness Narrative* Problem Noted Date Resolved Date Encounter for support and coordination of transi tion of care 05/02/2021 07/23/2021 Overview: Hospital discharge summary: Date of admission 05/01/2021 Date of discharge: Facility: [facility] 05/01/2021 presented to the emergency room with acute alcohol intoxication, initial alcohol level 7-8. Acknowledges over the last 5 months drinking 15 packs a day at 8% alcohol (marcin samaniego). Vital signs 96.6 F-78-18-111/73-98%. Appearance was no acute distress. WBC 7.9-Hgb 13.8-HCT 39.7-PLT 306. NA 130 2L-K3.7-CL 90 6L-CO2 26.0-BUN 20.5H- CRE 0.93-GLU 111 Admitted from ER to detox unit Active problem list: 1. Alcohol dependence: Started on phenobarbital, gabapentin as needed dicyclomine as needed, Vistaril as needed, Imodium as needed, trazodone as needed, Zofran as needed, scheduled thiamine and scheduled folic acid. 2. Tobacco abuse: Nicotine patch prescribed, tobacco withheld. 3. Marijuana abuse: Counseled 4. Anxiety depression, PTSD: Continue home medications 5. COPD with home oxygen use: Stable, continue supplements duration O2 with continuous pulse oximetry per patient. 6. Hyponatremia chronic: Stable 7 DVT risk low: Encourage ambulation. Mild protein-calorie malnutrition 08/26/2020 11/12/2021 Encounter for support and coordination of transi tion of care 05/15/2020 05/02/2021 Overview: HOSPITAL/ER FOLLOW UP Which facility: [facility] Dates of visit: 05/10-05/13/2020 Preadmission evaluation: ER with right-sided abdominal pain over 2-1/2 hours, 10 out of 10. Worse with coughing. States she vomited 20 times the day before, with episodes of diarrhea over the past 2 days. Had used Imodium which improved diarrhea. No known exposures to Covid. Also identified chest pain which started approximately 2:00 that afternoon. Subjective fever and chills, chronic cough that is unchanged. Patient was afebrile with temp of 99.4 Fahrenheit, heart rate of 95, blood pressure 147/92. O2 saturation 94% but patient was started on O2 at 2 L per nasal cannula abdominal exam with severe tenderness over epigastric and right upper quadrant and right lower quadrant. No distention. CBC showed white count of 15.2 with neutrophils of 70. Hemoglobin 14.9, platelet 227, CMP within normal limits except for sodium of 134, glucose 107, total bili 1.5, AST and ALT 5 5/277, alk phos 122, troponin negative. Lipase 170. Covid rapid test negative. Ethanol 64. Chest x-ray with generalized hyperinflation, no acute findings. CT of abdomen pelvis without contrast demonstrated severe fatty liver, mild hepatomegaly, normal gallbladder, exophytic isodense nodule on the lower pole of the right kidney, mild bilateral fatty groin hernia. Appendix considered normal. Ultrasound of gallbladder demonstrated partially distended gallbladder with a positive sonographic Kennedy sign, no gallstones. Also identified mild perihepatic ascites. In ER patient was given IV Zofran, morphine 4 mg x 2 IV, Ativan 1 mg IV x1. Primary Diagnosis/es: Acute cholecystitis Elevated LFTs Secondary Diagnosis/es: Anxiety depression Hyperlipidemia Chronic tobacco use Chronic alcohol abuse SANA Hypothyroidism COPD with emphysema Chronic back pain PTSD Chronic anemia unknown etiology Gastroesophageal reflux disease Pulmonary embolus Consultants: Surgery: Dr. Gaye Gordon testing done: ----- -Labwork: See above 05/13/2020 WBC 8.9, hemoglobin 11.4, hematocrit 36.8, elevated indices, RDW of 51.0, platelet count 171, absolute neutrophil count elevated at 7.8. Electrolytes all within normal limits except anion gap of 2, BUN of 2, creatinine 0.68 with estimated GFR of 97. Glucose 148, calcium 8.2. Bilirubin normal, AST 162, ALT 139, alk phosphatase 81 normal, total protein and albumin low 6.3, 2.1 respectively ----- -Imaging: As above 05/12/2020 hepatobiliary scan nuclear medicine: No scintigraphic evidence of cholecystitis or biliary obstruction ----- -Cardiac: ----- -Other: ----- Procedures/ Surgery: Surgery: Laparoscopic cholecystectomy with surgical findings of thickened gallbladder wall with areas of gangrene, enlarged liver with fatty infiltration ascites Hospital course: As above patient was admitted, IV fluid, pain management, taken to surgery. Patient had successful recovery and discharged in a stable condition. Instructions were to return to activity but no driving while taking narcotic medication Medication Reconciliation: Completed Patient was given oxycodone 5 mg every 12 hours #10 documented as of this encounter (statuses as of 02/23/2022) [facility]11-13-2021 History of Past illness Narrative* Problem Noted Date Resolved Date Encounter for support and coordination of transi tion of care 05/02/2021 07/23/2021 Overview: Hospital discharge summary: Date of admission 05/01/2021 Date of discharge: Facility: [facility] 05/01/2021 presented to the emergency room with acute alcohol intoxication, initial alcohol level 7-8. Acknowledges over the last 5 months drinking 15 packs a day at 8% alcohol (marcin samaniego). Vital signs 96.6 F-78-18-111/73-98%. Appearance was no acute distress. WBC 7.9-Hgb 13.8-HCT 39.7-PLT 306. NA 130 2L-K3.7-CL 90 6L-CO2 26.0-BUN 20.5H- CRE 0.93-GLU 111 Admitted from ER to detox unit Active problem list: 1. Alcohol dependence: Started on phenobarbital, gabapentin as needed dicyclomine as needed, Vistaril as needed, Imodium as needed, trazodone as needed, Zofran as needed, scheduled thiamine and scheduled folic acid. 2. Tobacco abuse: Nicotine patch prescribed, tobacco withheld. 3. Marijuana abuse: Counseled 4. Anxiety depression, PTSD: Continue home medications 5. COPD with home oxygen use: Stable, continue supplements duration O2 with continuous pulse oximetry per patient. 6. Hyponatremia chronic: Stable 7 DVT risk low: Encourage ambulation. Mild protein-calorie malnutrition 08/26/2020 11/12/2021 Encounter for support and coordination of transi tion of care 05/15/2020 05/02/2021 Overview: HOSPITAL/ER FOLLOW UP Which facility: [facility] Dates of visit: 05/10-05/13/2020 Preadmission evaluation: ER with right-sided abdominal pain over 2-1/2 hours, 10 out of 10. Worse with coughing. States she vomited 20 times the day before, with episodes of diarrhea over the past 2 days. Had used Imodium which improved diarrhea. No known exposures to Covid. Also identified chest pain which started approximately 2:00 that afternoon. Subjective fever and chills, chronic cough that is unchanged. Patient was afebrile with temp of 99.4 Fahrenheit, heart rate of 95, blood pressure 147/92. O2 saturation 94% but patient was started on O2 at 2 L per nasal cannula abdominal exam with severe tenderness over epigastric and right upper quadrant and right lower quadrant. No distention. CBC showed white count of 15.2 with neutrophils of 70. Hemoglobin 14.9, platelet 227, CMP within normal limits except for sodium of 134, glucose 107, total bili 1.5, AST and ALT 5 5/277, alk phos 122, troponin negative. Lipase 170. Covid rapid test negative. Ethanol 64. Chest x-ray with generalized hyperinflation, no acute findings. CT of abdomen pelvis without contrast demonstrated severe fatty liver, mild hepatomegaly, normal gallbladder, exophytic isodense nodule on the lower pole of the right kidney, mild bilateral fatty groin hernia. Appendix considered normal. Ultrasound of gallbladder demonstrated partially distended gallbladder with a positive sonographic Kennedy sign, no gallstones. Also identified mild perihepatic ascites. In ER patient was given IV Zofran, morphine 4 mg x 2 IV, Ativan 1 mg IV x1. Primary Diagnosis/es: Acute cholecystitis Elevated LFTs Secondary Diagnosis/es: Anxiety depression Hyperlipidemia Chronic tobacco use Chronic alcohol abuse SANA Hypothyroidism COPD with emphysema Chronic back pain PTSD Chronic anemia unknown etiology Gastroesophageal reflux disease Pulmonary embolus Consultants: Surgery: Dr. Gaye Gordon testing done: ----- -Labwork: See above 05/13/2020 WBC 8.9, hemoglobin 11.4, hematocrit 36.8, elevated indices, RDW of 51.0, platelet count 171, absolute neutrophil count elevated at 7.8. Electrolytes all within normal limits except anion gap of 2, BUN of 2, creatinine 0.68 with estimated GFR of 97. Glucose 148, calcium 8.2. Bilirubin normal, AST 162, ALT 139, alk phosphatase 81 normal, total protein and albumin low 6.3, 2.1 respectively ----- -Imaging: As above 05/12/2020 hepatobiliary scan nuclear medicine: No scintigraphic evidence of cholecystitis or biliary obstruction ----- -Cardiac: ----- -Other: ----- Procedures/ Surgery: Surgery: Laparoscopic cholecystectomy with surgical findings of thickened gallbladder wall with areas of gangrene, enlarged liver with fatty infiltration ascites Hospital course: As above patient was admitted, IV fluid, pain management, taken to surgery. Patient had successful recovery and discharged in a stable condition. Instructions were to return to activity but no driving while taking narcotic medication Medication Reconciliation: Completed Patient was given oxycodone 5 mg every 12 hours #10 documented as of this encounter (statuses as of 02/24/2022) [facility]11-13-2021 History of Past illness Narrative* Problem Noted Date Resolved Date Encounter for support and coordination of transi tion of care 05/02/2021 07/23/2021 Overview: Hospital discharge summary: Date of admission 05/01/2021 Date of discharge: Facility: [facility] 05/01/2021 presented to the emergency room with acute alcohol intoxication, initial alcohol level 7-8. Acknowledges over the last 5 months drinking 15 packs a day at 8% alcohol (marcin samaniego). Vital signs 96.6 F-78-18-111/73-98%. Appearance was no acute distress. WBC 7.9-Hgb 13.8-HCT 39.7-PLT 306. NA 130 2L-K3.7-CL 90 6L-CO2 26.0-BUN 20.5H- CRE 0.93-GLU 111 Admitted from ER to detox unit Active problem list: 1. Alcohol dependence: Started on phenobarbital, gabapentin as needed dicyclomine as needed, Vistaril as needed, Imodium as needed, trazodone as needed, Zofran as needed, scheduled thiamine and scheduled folic acid. 2. Tobacco abuse: Nicotine patch prescribed, tobacco withheld. 3. Marijuana abuse: Counseled 4. Anxiety depression, PTSD: Continue home medications 5. COPD with home oxygen use: Stable, continue supplements duration O2 with continuous pulse oximetry per patient. 6. Hyponatremia chronic: Stable 7 DVT risk low: Encourage ambulation. Mild protein-calorie malnutrition 08/26/2020 11/12/2021 Encounter for support and coordination of transi tion of care 05/15/2020 05/02/2021 Overview: HOSPITAL/ER FOLLOW UP Which facility: [facility] Dates of visit: 05/10-05/13/2020 Preadmission evaluation: ER with right-sided abdominal pain over 2-1/2 hours, 10 out of 10. Worse with coughing. States she vomited 20 times the day before, with episodes of diarrhea over the past 2 days. Had used Imodium which improved diarrhea. No known exposures to Covid. Also identified chest pain which started approximately 2:00 that afternoon. Subjective fever and chills, chronic cough that is unchanged. Patient was afebrile with temp of 99.4 Fahrenheit, heart rate of 95, blood pressure 147/92. O2 saturation 94% but patient was started on O2 at 2 L per nasal cannula abdominal exam with severe tenderness over epigastric and right upper quadrant and right lower quadrant. No distention. CBC showed white count of 15.2 with neutrophils of 70. Hemoglobin 14.9, platelet 227, CMP within normal limits except for sodium of 134, glucose 107, total bili 1.5, AST and ALT 5 5/277, alk phos 122, troponin negative. Lipase 170. Covid rapid test negative. Ethanol 64. Chest x-ray with generalized hyperinflation, no acute findings. CT of abdomen pelvis without contrast demonstrated severe fatty liver, mild hepatomegaly, normal gallbladder, exophytic isodense nodule on the lower pole of the right kidney, mild bilateral fatty groin hernia. Appendix considered normal. Ultrasound of gallbladder demonstrated partially distended gallbladder with a positive sonographic Kennedy sign, no gallstones. Also identified mild perihepatic ascites. In ER patient was given IV Zofran, morphine 4 mg x 2 IV, Ativan 1 mg IV x1. Primary Diagnosis/es: Acute cholecystitis Elevated LFTs Secondary Diagnosis/es: Anxiety depression Hyperlipidemia Chronic tobacco use Chronic alcohol abuse SANA Hypothyroidism COPD with emphysema Chronic back pain PTSD Chronic anemia unknown etiology Gastroesophageal reflux disease Pulmonary embolus Consultants: Surgery: Dr. Gaye Gordon testing done: ----- -Labwork: See above 05/13/2020 WBC 8.9, hemoglobin 11.4, hematocrit 36.8, elevated indices, RDW of 51.0, platelet count 171, absolute neutrophil count elevated at 7.8. Electrolytes all within normal limits except anion gap of 2, BUN of 2, creatinine 0.68 with estimated GFR of 97. Glucose 148, calcium 8.2. Bilirubin normal, AST 162, ALT 139, alk phosphatase 81 normal, total protein and albumin low 6.3, 2.1 respectively ----- -Imaging: As above 05/12/2020 hepatobiliary scan nuclear medicine: No scintigraphic evidence of cholecystitis or biliary obstruction ----- -Cardiac: ----- -Other: ----- Procedures/ Surgery: Surgery: Laparoscopic cholecystectomy with surgical findings of thickened gallbladder wall with areas of gangrene, enlarged liver with fatty infiltration ascites Hospital course: As above patient was admitted, IV fluid, pain management, taken to surgery. Patient had successful recovery and discharged in a stable condition. Instructions were to return to activity but no driving while taking narcotic medication Medication Reconciliation: Completed Patient was given oxycodone 5 mg every 12 hours #10 documented as of this encounter (statuses as of 02/25/2022) [facility]-13-[facility]21 History of Past illness Narrative* Problem Noted Date Resolved Date Encounter for support and coordination of transi tion of care 05/02/2021 07/23/2021 Overview: Hospital discharge summary: Date of admission 05/01/2021 Date of discharge: Facility: [facility] 05/01/2021 presented to the emergency room with acute alcohol intoxication, initial alcohol level 7-8. Acknowledges over the last 5 months drinking 15 packs a day at 8% alcohol (marcin samaniego). Vital signs 96.6 F-78-18-111/73-98%. Appearance was no acute distress. WBC 7.9-Hgb 13.8-HCT 39.7-PLT 306. NA 130 2L-K3.7-CL 90 6L-CO2 26.0-BUN 20.5H- CRE 0.93-GLU 111 Admitted from ER to detox unit Active problem list: 1. Alcohol dependence: Started on phenobarbital, gabapentin as needed dicyclomine as needed, Vistaril as needed, Imodium as needed, trazodone as needed, Zofran as needed, scheduled thiamine and scheduled folic acid. 2. Tobacco abuse: Nicotine patch prescribed, tobacco withheld. 3. Marijuana abuse: Counseled 4. Anxiety depression, PTSD: Continue home medications 5. COPD with home oxygen use: Stable, continue supplements duration O2 with continuous pulse oximetry per patient. 6. Hyponatremia chronic: Stable 7 DVT risk low: Encourage ambulation. Mild protein-calorie malnutrition 08/26/2020 11/12/2021 Encounter for support and coordination of transi tion of care 05/15/2020 05/02/2021 Overview: HOSPITAL/ER FOLLOW UP Which facility: [facility] Dates of visit: 05/10-05/13/2020 Preadmission evaluation: ER with right-sided abdominal pain over 2-1/2 hours, 10 out of 10. Worse with coughing. States she vomited 20 times the day before, with episodes of diarrhea over the past 2 days. Had used Imodium which improved diarrhea. No known exposures to Covid. Also identified chest pain which started approximately 2:00 that afternoon. Subjective fever and chills, chronic cough that is unchanged. Patient was afebrile with temp of 99.4 Fahrenheit, heart rate of 95, blood pressure 147/92. O2 saturation 94% but patient was started on O2 at 2 L per nasal cannula abdominal exam with severe tenderness over epigastric and right upper quadrant and right lower quadrant. No distention. CBC showed white count of 15.2 with neutrophils of 70. Hemoglobin 14.9, platelet 227, CMP within normal limits except for sodium of 134, glucose 107, total bili 1.5, AST and ALT 5 5/277, alk phos 122, troponin negative. Lipase 170. Covid rapid test negative. Ethanol 64. Chest x-ray with generalized hyperinflation, no acute findings. CT of abdomen pelvis without contrast demonstrated severe fatty liver, mild hepatomegaly, normal gallbladder, exophytic isodense nodule on the lower pole of the right kidney, mild bilateral fatty groin hernia. Appendix considered normal. Ultrasound of gallbladder demonstrated partially distended gallbladder with a positive sonographic Kennedy sign, no gallstones. Also identified mild perihepatic ascites. In ER patient was given IV Zofran, morphine 4 mg x 2 IV, Ativan 1 mg IV x1. Primary Diagnosis/es: Acute cholecystitis Elevated LFTs Secondary Diagnosis/es: Anxiety depression Hyperlipidemia Chronic tobacco use Chronic alcohol abuse SANA Hypothyroidism COPD with emphysema Chronic back pain PTSD Chronic anemia unknown etiology Gastroesophageal reflux disease Pulmonary embolus Consultants: Surgery: Dr. Gaye Gordon testing done: ----- -Labwork: See above 05/13/2020 WBC 8.9, hemoglobin 11.4, hematocrit 36.8, elevated indices, RDW of 51.0, platelet count 171, absolute neutrophil count elevated at 7.8. Electrolytes all within normal limits except anion gap of 2, BUN of 2, creatinine 0.68 with estimated GFR of 97. Glucose 148, calcium 8.2. Bilirubin normal, AST 162, ALT 139, alk phosphatase 81 normal, total protein and albumin low 6.3, 2.1 respectively ----- -Imaging: As above 05/12/2020 hepatobiliary scan nuclear medicine: No scintigraphic evidence of cholecystitis or biliary obstruction ----- -Cardiac: ----- -Other: ----- Procedures/ Surgery: Surgery: Laparoscopic cholecystectomy with surgical findings of thickened gallbladder wall with areas of gangrene, enlarged liver with fatty infiltration ascites Hospital course: As above patient was admitted, IV fluid, pain management, taken to surgery. Patient had successful recovery and discharged in a stable condition. Instructions were to return to activity but no driving while taking narcotic medication Medication Reconciliation: Completed Patient was given oxycodone 5 mg every 12 hours #10 documented as of this encounter (statuses as of 02/26/2022) [facility]11-13-2021 History of Past illness Narrative* Problem Noted Date Resolved Date Encounter for support and coordination of transi tion of care 05/02/2021 07/23/2021 Overview: Hospital discharge summary: Date of admission 05/01/2021 Date of discharge: Facility: [facility] 05/01/2021 presented to the emergency room with acute alcohol intoxication, initial alcohol level 7-8. Acknowledges over the last 5 months drinking 15 packs a day at 8% alcohol (marcin samaniego). Vital signs 96.6 [id number]/73-98%. Appearance was no acute distress. WBC 7.9-Hgb 13.8-HCT 39.7-PLT 306. NA 130 2L-K3.7-CL 90 6L-CO2 26.0-BUN 20.5H- CRE 0.93-GLU 111 Admitted from ER to detox unit Active problem list: 1. Alcohol dependence: Started on phenobarbital, gabapentin as needed dicyclomine as needed, Vistaril as needed, Imodium as needed, trazodone as needed, Zofran as needed, scheduled thiamine and scheduled folic acid. 2. Tobacco abuse: Nicotine patch prescribed, tobacco withheld. 3. Marijuana abuse: Counseled 4. Anxiety depression, PTSD: Continue home medications 5. COPD with home oxygen use: Stable, continue supplements duration O2 with continuous pulse oximetry per patient. 6. Hyponatremia chronic: Stable 7 DVT risk low: Encourage ambulation. Mild protein-calorie malnutrition 08/26/2020 11/12/2021 Encounter for support and coordination of transi tion of care 05/15/2020 05/02/2021 Overview: HOSPITAL/ER FOLLOW UP Which facility: [facility] Dates of visit: 05/10-05/13/2020 Preadmission evaluation: ER with right-sided abdominal pain over 2-1/2 hours, 10 out of 10. Worse with coughing. States she vomited 20 times the day before, with episodes of diarrhea over the past 2 days. Had used Imodium which improved diarrhea. No known exposures to Covid. Also identified chest pain which started approximately 2:00 that afternoon. Subjective fever and chills, chronic cough that is unchanged. Patient was afebrile with temp of 99.4 Fahrenheit, heart rate of 95, blood pressure 147/92. O2 saturation 94% but patient was started on O2 at 2 L per nasal cannula abdominal exam with severe tenderness over epigastric and right upper quadrant and right lower quadrant. No distention. CBC showed white count of 15.2 with neutrophils of 70. Hemoglobin 14.9, platelet 227, CMP within normal limits except for sodium of 134, glucose 107, total bili 1.5, AST and ALT 5 5/277, alk phos 122, troponin negative. Lipase 170. Covid rapid test negative. Ethanol 64. Chest x-ray with generalized hyperinflation, no acute findings. CT of abdomen pelvis without contrast demonstrated severe fatty liver, mild hepatomegaly, normal gallbladder, exophytic isodense nodule on the lower pole of the right kidney, mild bilateral fatty groin hernia. Appendix considered normal. Ultrasound of gallbladder demonstrated partially distended gallbladder with a positive sonographic Kennedy sign, no gallstones. Also identified mild perihepatic ascites. In ER patient was given IV Zofran, morphine 4 mg x 2 IV, Ativan 1 mg IV x1. Primary Diagnosis/es: Acute cholecystitis Elevated LFTs Secondary Diagnosis/es: Anxiety depression Hyperlipidemia Chronic tobacco use Chronic alcohol abuse SANA Hypothyroidism COPD with emphysema Chronic back pain PTSD Chronic anemia unknown etiology Gastroesophageal reflux disease Pulmonary embolus Consultants: Surgery: Dr. Gaye Gordon testing done: ----- -Labwork: See above 05/13/2020 WBC 8.9, hemoglobin 11.4, hematocrit 36.8, elevated indices, RDW of 51.0, platelet count 171, absolute neutrophil count elevated at 7.8. Electrolytes all within normal limits except anion gap of 2, BUN of 2, creatinine 0.68 with estimated GFR of 97. Glucose 148, calcium 8.2. Bilirubin normal, AST 162, ALT 139, alk phosphatase 81 normal, total protein and albumin low 6.3, 2.1 respectively ----- -Imaging: As above 05/12/2020 hepatobiliary scan nuclear medicine: No scintigraphic evidence of cholecystitis or biliary obstruction ----- -Cardiac: ----- -Other: ----- Procedures/ Surgery: Surgery: Laparoscopic cholecystectomy with surgical findings of thickened gallbladder wall with areas of gangrene, enlarged liver with fatty infiltration ascites Hospital course: As above patient was admitted, IV fluid, pain management, taken to surgery. Patient had successful recovery and discharged in a stable condition. Instructions were to return to activity but no driving while taking narcotic medication Medication Reconciliation: Completed Patient was given oxycodone 5 mg every 12 hours #10 documented as of this encounter (statuses as of 02/27/2022) [facility]11-13-2021 History of Past illness Narrative* Problem Noted Date Resolved Date Encounter for support and coordination of transi tion of care 05/02/2021 07/23/2021 Overview: Hospital discharge summary: Date of admission 05/01/2021 Date of discharge: Facility: [facility] 05/01/2021 presented to the emergency room with acute alcohol intoxication, initial alcohol level 7-8. Acknowledges over the last 5 months drinking 15 packs a day at 8% alcohol (nataidan samaniego). Vital signs 96.6 [id number]/73-98%. Appearance was no acute distress. WBC 7.9-Hgb 13.8-HCT 39.7-PLT 306. NA 130 2L-K3.7-CL 90 6L-CO2 26.0-BUN 20.5H- CRE 0.93-GLU 111 Admitted from ER to detox unit Active problem list: 1. Alcohol dependence: Started on phenobarbital, gabapentin as needed dicyclomine as needed, Vistaril as needed, Imodium as needed, trazodone as needed, Zofran as needed, scheduled thiamine and scheduled folic acid. 2. Tobacco abuse: Nicotine patch prescribed, tobacco withheld. 3. Marijuana abuse: Counseled 4. Anxiety depression, PTSD: Continue home medications 5. COPD with home oxygen use: Stable, continue supplements duration O2 with continuous pulse oximetry per patient. 6. Hyponatremia chronic: Stable 7 DVT risk low: Encourage ambulation. Mild protein-calorie malnutrition 08/26/2020 11/12/2021 Encounter for support and coordination of transi tion of care 05/15/2020 05/02/2021 Overview: HOSPITAL/ER FOLLOW UP Which facility: [facility] Dates of visit: 05/10-05/13/2020 Preadmission evaluation: ER with right-sided abdominal pain over 2-1/2 hours, 10 out of 10. Worse with coughing. States she vomited 20 times the day before, with episodes of diarrhea over the past 2 days. Had used Imodium which improved diarrhea. No known exposures to Covid. Also identified chest pain which started approximately 2:00 that afternoon. Subjective fever and chills, chronic cough that is unchanged. Patient was afebrile with temp of 99.4 Fahrenheit, heart rate of 95, blood pressure 147/92. O2 saturation 94% but patient was started on O2 at 2 L per nasal cannula abdominal exam with severe tenderness over epigastric and right upper quadrant and right lower quadrant. No distention. CBC showed white count of 15.2 with neutrophils of 70. Hemoglobin 14.9, platelet 227, CMP within normal limits except for sodium of 134, glucose 107, total bili 1.5, AST and ALT 5 5/277, alk phos 122, troponin negative. Lipase 170. Covid rapid test negative. Ethanol 64. Chest x-ray with generalized hyperinflation, no acute findings. CT of abdomen pelvis without contrast demonstrated severe fatty liver, mild hepatomegaly, normal gallbladder, exophytic isodense nodule on the lower pole of the right kidney, mild bilateral fatty groin hernia. Appendix considered normal. Ultrasound of gallbladder demonstrated partially distended gallbladder with a positive sonographic Kennedy sign, no gallstones. Also identified mild perihepatic ascites. In ER patient was given IV Zofran, morphine 4 mg x 2 IV, Ativan 1 mg IV x1. Primary Diagnosis/es: Acute cholecystitis Elevated LFTs Secondary Diagnosis/es: Anxiety depression Hyperlipidemia Chronic tobacco use Chronic alcohol abuse SANA Hypothyroidism COPD with emphysema Chronic back pain PTSD Chronic anemia unknown etiology Gastroesophageal reflux disease Pulmonary embolus Consultants: Surgery: Dr. Gaye Gordon testing done: ----- -Labwork: See above 05/13/2020 WBC 8.9, hemoglobin 11.4, hematocrit 36.8, elevated indices, RDW of 51.0, platelet count 171, absolute neutrophil count elevated at 7.8. Electrolytes all within normal limits except anion gap of 2, BUN of 2, creatinine 0.68 with estimated GFR of 97. Glucose 148, calcium 8.2. Bilirubin normal, AST 162, ALT 139, alk phosphatase 81 normal, total protein and albumin low 6.3, 2.1 respectively ----- -Imaging: As above 05/12/2020 hepatobiliary scan nuclear medicine: No scintigraphic evidence of cholecystitis or biliary obstruction ----- -Cardiac: ----- -Other: ----- Procedures/ Surgery: Surgery: Laparoscopic cholecystectomy with surgical findings of thickened gallbladder wall with areas of gangrene, enlarged liver with fatty infiltration ascites Hospital course: As above patient was admitted, IV fluid, pain management, taken to surgery. Patient had successful recovery and discharged in a stable condition. Instructions were to return to activity but no driving while taking narcotic medication Medication Reconciliation: Completed Patient was given oxycodone 5 mg every 12 hours #10 documented as of this encounter (statuses as of 03/02/2022) [facility]11-13-2021 History of Past illness Narrative* Problem Noted Date Resolved Date Encounter for support and coordination of transi tion of care 05/02/2021 07/23/2021 Overview: Hospital discharge summary: Date of admission 05/01/2021 Date of discharge: Facility: [facility] 05/01/2021 presented to the emergency room with acute alcohol intoxication, initial alcohol level 7-8. Acknowledges over the last 5 months drinking 15 packs a day at 8% alcohol (marcin samaniego). Vital signs 96.6 [id number]-78-18-111/73-98%. Appearance was no acute distress. WBC 7.9-Hgb 13.8-HCT 39.7-PLT 306. NA 130 2L-K3.7-CL 90 6L-CO2 26.0-BUN 20.5H- CRE 0.93-GLU 111 Admitted from ER to detox unit Active problem list: 1. Alcohol dependence: Started on phenobarbital, gabapentin as needed dicyclomine as needed, Vistaril as needed, Imodium as needed, trazodone as needed, Zofran as needed, scheduled thiamine and scheduled folic acid. 2. Tobacco abuse: Nicotine patch prescribed, tobacco withheld. 3. Marijuana abuse: Counseled 4. Anxiety depression, PTSD: Continue home medications 5. COPD with home oxygen use: Stable, continue supplements duration O2 with continuous pulse oximetry per patient. 6. Hyponatremia chronic: Stable 7 DVT risk low: Encourage ambulation. Mild protein-calorie malnutrition 08/26/2020 11/12/2021 Encounter for support and coordination of transi tion of care 05/15/2020 05/02/2021 Overview: HOSPITAL/ER FOLLOW UP Which facility: [facility] Dates of visit: 05/10-05/13/2020 Preadmission evaluation: ER with right-sided abdominal pain over 2-1/2 hours, 10 out of 10. Worse with coughing. States she vomited 20 times the day before, with episodes of diarrhea over the past 2 days. Had used Imodium which improved diarrhea. No known exposures to Covid. Also identified chest pain which started approximately 2:00 that afternoon. Subjective fever and chills, chronic cough that is unchanged. Patient was afebrile with temp of 99.4 Fahrenheit, heart rate of 95, blood pressure 147/92. O2 saturation 94% but patient was started on O2 at 2 L per nasal cannula abdominal exam with severe tenderness over epigastric and right upper quadrant and right lower quadrant. No distention. CBC showed white count of 15.2 with neutrophils of 70. Hemoglobin 14.9, platelet 227, CMP within normal limits except for sodium of 134, glucose 107, total bili 1.5, AST and ALT 5 5/277, alk phos 122, troponin negative. Lipase 170. Covid rapid test negative. Ethanol 64. Chest x-ray with generalized hyperinflation, no acute findings. CT of abdomen pelvis without contrast demonstrated severe fatty liver, mild hepatomegaly, normal gallbladder, exophytic isodense nodule on the lower pole of the right kidney, mild bilateral fatty groin hernia. Appendix considered normal. Ultrasound of gallbladder demonstrated partially distended gallbladder with a positive sonographic Kennedy sign, no gallstones. Also identified mild perihepatic ascites. In ER patient was given IV Zofran, morphine 4 mg x 2 IV, Ativan 1 mg IV x1. Primary Diagnosis/es: Acute cholecystitis Elevated LFTs Secondary Diagnosis/es: Anxiety depression Hyperlipidemia Chronic tobacco use Chronic alcohol abuse SANA Hypothyroidism COPD with emphysema Chronic back pain PTSD Chronic anemia unknown etiology Gastroesophageal reflux disease Pulmonary embolus Consultants: Surgery: Dr. Gaye Gordon testing done: ----- -Labwork: See above 05/13/2020 WBC 8.9, hemoglobin 11.4, hematocrit 36.8, elevated indices, RDW of 51.0, platelet count 171, absolute neutrophil count elevated at 7.8. Electrolytes all within normal limits except anion gap of 2, BUN of 2, creatinine 0.68 with estimated GFR of 97. Glucose 148, calcium 8.2. Bilirubin normal, AST 162, ALT 139, alk phosphatase 81 normal, total protein and albumin low 6.3, 2.1 respectively ----- -Imaging: As above 05/12/2020 hepatobiliary scan nuclear medicine: No scintigraphic evidence of cholecystitis or biliary obstruction ----- -Cardiac: ----- -Other: ----- Procedures/ Surgery: Surgery: Laparoscopic cholecystectomy with surgical findings of thickened gallbladder wall with areas of gangrene, enlarged liver with fatty infiltration ascites Hospital course: As above patient was admitted, IV fluid, pain management, taken to surgery. Patient had successful recovery and discharged in a stable condition. Instructions were to return to activity but no driving while taking narcotic medication Medication Reconciliation: Completed Patient was given oxycodone 5 mg every 12 hours #10 documented as of this encounter (statuses as of 03/11/2022) [facility]11-13-2021 History of Past illness Narrative* Problem Noted Date Resolved Date Encounter for support and coordination of transi tion of care 05/02/2021 07/23/2021 Overview: Hospital discharge summary: Date of admission 05/01/2021 Date of discharge: Facility: [facility] 05/01/2021 presented to the emergency room with acute alcohol intoxication, initial alcohol level 7-8. Acknowledges over the last 5 months drinking 15 packs a day at 8% alcohol (marcin samaniego). Vital signs 96.6 [id number]-78-18-111/73-98%. Appearance was no acute distress. WBC 7.9-Hgb 13.8-HCT 39.7-PLT 306. NA 130 2L-K3.7-CL 90 6L-CO2 26.0-BUN 20.5H- CRE 0.93-GLU 111 Admitted from ER to detox unit Active problem list: 1. Alcohol dependence: Started on phenobarbital, gabapentin as needed dicyclomine as needed, Vistaril as needed, Imodium as needed, trazodone as needed, Zofran as needed, scheduled thiamine and scheduled folic acid. 2. Tobacco abuse: Nicotine patch prescribed, tobacco withheld. 3. Marijuana abuse: Counseled 4. Anxiety depression, PTSD: Continue home medications 5. COPD with home oxygen use: Stable, continue supplements duration O2 with continuous pulse oximetry per patient. 6. Hyponatremia chronic: Stable 7 DVT risk low: Encourage ambulation. Mild protein-calorie malnutrition 08/26/2020 11/12/2021 Encounter for support and coordination of transi tion of care 05/15/2020 05/02/2021 Overview: HOSPITAL/ER FOLLOW UP Which facility: [facility] Dates of visit: 05/10-05/13/2020 Preadmission evaluation: ER with right-sided abdominal pain over 2-1/2 hours, 10 out of 10. Worse with coughing. States she vomited 20 times the day before, with episodes of diarrhea over the past 2 days. Had used Imodium which improved diarrhea. No known exposures to Covid. Also identified chest pain which started approximately 2:00 that afternoon. Subjective fever and chills, chronic cough that is unchanged. Patient was afebrile with temp of 99.4 Fahrenheit, heart rate of 95, blood pressure 147/92. O2 saturation 94% but patient was started on O2 at 2 L per nasal cannula abdominal exam with severe tenderness over epigastric and right upper quadrant and right lower quadrant. No distention. CBC showed white count of 15.2 with neutrophils of 70. Hemoglobin 14.9, platelet 227, CMP within normal limits except for sodium of 134, glucose 107, total bili 1.5, AST and ALT 5 5/277, alk phos 122, troponin negative. Lipase 170. Covid rapid test negative. Ethanol 64. Chest x-ray with generalized hyperinflation, no acute findings. CT of abdomen pelvis without contrast demonstrated severe fatty liver, mild hepatomegaly, normal gallbladder, exophytic isodense nodule on the lower pole of the right kidney, mild bilateral fatty groin hernia. Appendix considered normal. Ultrasound of gallbladder demonstrated partially distended gallbladder with a positive sonographic Kennedy sign, no gallstones. Also identified mild perihepatic ascites. In ER patient was given IV Zofran, morphine 4 mg x 2 IV, Ativan 1 mg IV x1. Primary Diagnosis/es: Acute cholecystitis Elevated LFTs Secondary Diagnosis/es: Anxiety depression Hyperlipidemia Chronic tobacco use Chronic alcohol abuse SANA Hypothyroidism COPD with emphysema Chronic back pain PTSD Chronic anemia unknown etiology Gastroesophageal reflux disease Pulmonary embolus Consultants: Surgery: Dr. Gaye Gordon testing done: ----- -Labwork: See above 05/13/2020 WBC 8.9, hemoglobin 11.4, hematocrit 36.8, elevated indices, RDW of 51.0, platelet count 171, absolute neutrophil count elevated at 7.8. Electrolytes all within normal limits except anion gap of 2, BUN of 2, creatinine 0.68 with estimated GFR of 97. Glucose 148, calcium 8.2. Bilirubin normal, AST 162, ALT 139, alk phosphatase 81 normal, total protein and albumin low 6.3, 2.1 respectively ----- -Imaging: As above 05/12/2020 hepatobiliary scan nuclear medicine: No scintigraphic evidence of cholecystitis or biliary obstruction ----- -Cardiac: ----- -Other: ----- Procedures/ Surgery: Surgery: Laparoscopic cholecystectomy with surgical findings of thickened gallbladder wall with areas of gangrene, enlarged liver with fatty infiltration ascites Hospital course: As above patient was admitted, IV fluid, pain management, taken to surgery. Patient had successful recovery and discharged in a stable condition. Instructions were to return to activity but no driving while taking narcotic medication Medication Reconciliation: Completed Patient was given oxycodone 5 mg every 12 hours #10 documented as of this encounter (statuses as of 03/12/2022) [facility]11-13-2021 History of Past illness Narrative* Problem Noted Date Resolved Date Encounter for support and coordination of transi tion of care 05/02/2021 07/23/2021 Overview: Hospital discharge summary: Date of admission 05/01/2021 Date of discharge: Facility: [facility] 05/01/2021 presented to the emergency room with acute alcohol intoxication, initial alcohol level 7-8. Acknowledges over the last 5 months drinking 15 packs a day at 8% alcohol (marcin josealfa). Vital signs 96.6 F-78-18-111/73-98%. Appearance was no acute distress. WBC 7.9-Hgb 13.8-HCT 39.7-PLT 306. NA 130 2L-K3.7-CL 90 6L-CO2 26.0-BUN 20.5H- CRE 0.93-GLU 111 Admitted from ER to detox unit Active problem list: 1. Alcohol dependence: Started on phenobarbital, gabapentin as needed dicyclomine as needed, Vistaril as needed, Imodium as needed, trazodone as needed, Zofran as needed, scheduled thiamine and scheduled folic acid. 2. Tobacco abuse: Nicotine patch prescribed, tobacco withheld. 3. Marijuana abuse: Counseled 4. Anxiety depression, PTSD: Continue home medications 5. COPD with home oxygen use: Stable, continue supplements duration O2 with continuous pulse oximetry per patient. 6. Hyponatremia chronic: Stable 7 DVT risk low: Encourage ambulation. Mild protein-calorie malnutrition 08/26/2020 11/12/2021 Encounter for support and coordination of transi tion of care 05/15/2020 05/02/2021 Overview: HOSPITAL/ER FOLLOW UP Which facility: [facility] Dates of visit: 05/10-05/13/2020 Preadmission evaluation: ER with right-sided abdominal pain over 2-1/2 hours, 10 out of 10. Worse with coughing. States she vomited 20 times the day before, with episodes of diarrhea over the past 2 days. Had used Imodium which improved diarrhea. No known exposures to Covid. Also identified chest pain which started approximately 2:00 that afternoon. Subjective fever and chills, chronic cough that is unchanged. Patient was afebrile with temp of 99.4 Fahrenheit, heart rate of 95, blood pressure 147/92. O2 saturation 94% but patient was started on O2 at 2 L per nasal cannula abdominal exam with severe tenderness over epigastric and right upper quadrant and right lower quadrant. No distention. CBC showed white count of 15.2 with neutrophils of 70. Hemoglobin 14.9, platelet 227, CMP within normal limits except for sodium of 134, glucose 107, total bili 1.5, AST and ALT 5 5/277, alk phos 122, troponin negative. Lipase 170. Covid rapid test negative. Ethanol 64. Chest x-ray with generalized hyperinflation, no acute findings. CT of abdomen pelvis without contrast demonstrated severe fatty liver, mild hepatomegaly, normal gallbladder, exophytic isodense nodule on the lower pole of the right kidney, mild bilateral fatty groin hernia. Appendix considered normal. Ultrasound of gallbladder demonstrated partially distended gallbladder with a positive sonographic Kennedy sign, no gallstones. Also identified mild perihepatic ascites. In ER patient was given IV Zofran, morphine 4 mg x 2 IV, Ativan 1 mg IV x1. Primary Diagnosis/es: Acute cholecystitis Elevated LFTs Secondary Diagnosis/es: Anxiety depression Hyperlipidemia Chronic tobacco use Chronic alcohol abuse SANA Hypothyroidism COPD with emphysema Chronic back pain PTSD Chronic anemia unknown etiology Gastroesophageal reflux disease Pulmonary embolus Consultants: Surgery: Dr. Gaye Gordon testing done: ----- -Labwork: See above 05/13/2020 WBC 8.9, hemoglobin 11.4, hematocrit 36.8, elevated indices, RDW of 51.0, platelet count 171, absolute neutrophil count elevated at 7.8. Electrolytes all within normal limits except anion gap of 2, BUN of 2, creatinine 0.68 with estimated GFR of 97. Glucose 148, calcium 8.2. Bilirubin normal, AST 162, ALT 139, alk phosphatase 81 normal, total protein and albumin low 6.3, 2.1 respectively ----- -Imaging: As above 05/12/2020 hepatobiliary scan nuclear medicine: No scintigraphic evidence of cholecystitis or biliary obstruction ----- -Cardiac: ----- -Other: ----- Procedures/ Surgery: Surgery: Laparoscopic cholecystectomy with surgical findings of thickened gallbladder wall with areas of gangrene, enlarged liver with fatty infiltration ascites Hospital course: As above patient was admitted, IV fluid, pain management, taken to surgery. Patient had successful recovery and discharged in a stable condition. Instructions were to return to activity but no driving while taking narcotic medication Medication Reconciliation: Completed Patient was given oxycodone 5 mg every 12 hours #10 documented as of this encounter (statuses as of 03/16/2022) [facility]11-13-2021 History of Past illness Narrative* Problem Noted Date Resolved Date Encounter for support and coordination of transi tion of care 05/02/2021 07/23/2021 Overview: Hospital discharge summary: Date of admission 05/01/2021 Date of discharge: Facility: [facility] 05/01/2021 presented to the emergency room with acute alcohol intoxication, initial alcohol level 7-8. Acknowledges over the last 5 months drinking 15 packs a day at 8% alcohol (marcin samaniego). Vital signs 96.6 [id number]-78-18-111/73-98%. Appearance was no acute distress. WBC 7.9-Hgb 13.8-HCT 39.7-PLT 306. NA 130 2L-K3.7-CL 90 6L-CO2 26.0-BUN 20.5H- CRE 0.93-GLU 111 Admitted from ER to detox unit Active problem list: 1. Alcohol dependence: Started on phenobarbital, gabapentin as needed dicyclomine as needed, Vistaril as needed, Imodium as needed, trazodone as needed, Zofran as needed, scheduled thiamine and scheduled folic acid. 2. Tobacco abuse: Nicotine patch prescribed, tobacco withheld. 3. Marijuana abuse: Counseled 4. Anxiety depression, PTSD: Continue home medications 5. COPD with home oxygen use: Stable, continue supplements duration O2 with continuous pulse oximetry per patient. 6. Hyponatremia chronic: Stable 7 DVT risk low: Encourage ambulation. Mild protein-calorie malnutrition 08/26/2020 11/12/2021 Encounter for support and coordination of transi tion of care 05/15/2020 05/02/2021 Overview: HOSPITAL/ER FOLLOW UP Which facility: [facility] Dates of visit: 05/10-05/13/2020 Preadmission evaluation: ER with right-sided abdominal pain over 2-1/2 hours, 10 out of 10. Worse with coughing. States she vomited 20 times the day before, with episodes of diarrhea over the past 2 days. Had used Imodium which improved diarrhea. No known exposures to Covid. Also identified chest pain which started approximately 2:00 that afternoon. Subjective fever and chills, chronic cough that is unchanged. Patient was afebrile with temp of 99.4 Fahrenheit, heart rate of 95, blood pressure 147/92. O2 saturation 94% but patient was started on O2 at 2 L per nasal cannula abdominal exam with severe tenderness over epigastric and right upper quadrant and right lower quadrant. No distention. CBC showed white count of 15.2 with neutrophils of 70. Hemoglobin 14.9, platelet 227, CMP within normal limits except for sodium of 134, glucose 107, total bili 1.5, AST and ALT 5 5/277, alk phos 122, troponin negative. Lipase 170. Covid rapid test negative. Ethanol 64. Chest x-ray with generalized hyperinflation, no acute findings. CT of abdomen pelvis without contrast demonstrated severe fatty liver, mild hepatomegaly, normal gallbladder, exophytic isodense nodule on the lower pole of the right kidney, mild bilateral fatty groin hernia. Appendix considered normal. Ultrasound of gallbladder demonstrated partially distended gallbladder with a positive sonographic Kennedy sign, no gallstones. Also identified mild perihepatic ascites. In ER patient was given IV Zofran, morphine 4 mg x 2 IV, Ativan 1 mg IV x1. Primary Diagnosis/es: Acute cholecystitis Elevated LFTs Secondary Diagnosis/es: Anxiety depression Hyperlipidemia Chronic tobacco use Chronic alcohol abuse SANA Hypothyroidism COPD with emphysema Chronic back pain PTSD Chronic anemia unknown etiology Gastroesophageal reflux disease Pulmonary embolus Consultants: Surgery: Dr. Gaye Gordon testing done: ----- -Labwork: See above 05/13/2020 WBC 8.9, hemoglobin 11.4, hematocrit 36.8, elevated indices, RDW of 51.0, platelet count 171, absolute neutrophil count elevated at 7.8. Electrolytes all within normal limits except anion gap of 2, BUN of 2, creatinine 0.68 with estimated GFR of 97. Glucose 148, calcium 8.2. Bilirubin normal, AST 162, ALT 139, alk phosphatase 81 normal, total protein and albumin low 6.3, 2.1 respectively ----- -Imaging: As above 05/12/2020 hepatobiliary scan nuclear medicine: No scintigraphic evidence of cholecystitis or biliary obstruction ----- -Cardiac: ----- -Other: ----- Procedures/ Surgery: Surgery: Laparoscopic cholecystectomy with surgical findings of thickened gallbladder wall with areas of gangrene, enlarged liver with fatty infiltration ascites Hospital course: As above patient was admitted, IV fluid, pain management, taken to surgery. Patient had successful recovery and discharged in a stable condition. Instructions were to return to activity but no driving while taking narcotic medication Medication Reconciliation: Completed Patient was given oxycodone 5 mg every 12 hours #10 documented as of this encounter (statuses as of 03/17/2022) [facility]11-13-2021 History of Past illness Narrative* Problem Noted Date Resolved Date Encounter for support and coordination of transi tion of care 05/02/2021 07/23/2021 Overview: Hospital discharge summary: Date of admission 05/01/2021 Date of discharge: Facility: [facility] 05/01/2021 presented to the emergency room with acute alcohol intoxication, initial alcohol level 7-8. Acknowledges over the last 5 months drinking 15 packs a day at 8% alcohol (marcin samaniego). Vital signs 96.6 [id number]-[id number]/73-98%. Appearance was no acute distress. WBC 7.9-Hgb 13.8-HCT 39.7-PLT 306. NA 130 2L-K3.7-CL 90 6L-CO2 26.0-BUN 20.5H- CRE 0.93-GLU 111 Admitted from ER to detox unit Active problem list: 1. Alcohol dependence: Started on phenobarbital, gabapentin as needed dicyclomine as needed, Vistaril as needed, Imodium as needed, trazodone as needed, Zofran as needed, scheduled thiamine and scheduled folic acid. 2. Tobacco abuse: Nicotine patch prescribed, tobacco withheld. 3. Marijuana abuse: Counseled 4. Anxiety depression, PTSD: Continue home medications 5. COPD with home oxygen use: Stable, continue supplements duration O2 with continuous pulse oximetry per patient. 6. Hyponatremia chronic: Stable 7 DVT risk low: Encourage ambulation. Mild protein-calorie malnutrition 08/26/2020 11/12/2021 Encounter for support and coordination of transi tion of care 05/15/2020 05/02/2021 Overview: HOSPITAL/ER FOLLOW UP Which facility: [facility] Dates of visit: 05/10-05/13/2020 Preadmission evaluation: ER with right-sided abdominal pain over 2-1/2 hours, 10 out of 10. Worse with coughing. States she vomited 20 times the day before, with episodes of diarrhea over the past 2 days. Had used Imodium which improved diarrhea. No known exposures to Covid. Also identified chest pain which started approximately 2:00 that afternoon. Subjective fever and chills, chronic cough that is unchanged. Patient was afebrile with temp of 99.4 Fahrenheit, heart rate of 95, blood pressure 147/92. O2 saturation 94% but patient was started on O2 at 2 L per nasal cannula abdominal exam with severe tenderness over epigastric and right upper quadrant and right lower quadrant. No distention. CBC showed white count of 15.2 with neutrophils of 70. Hemoglobin 14.9, platelet 227, CMP within normal limits except for sodium of 134, glucose 107, total bili 1.5, AST and ALT 5 5/277, alk phos 122, troponin negative. Lipase 170. Covid rapid test negative. Ethanol 64. Chest x-ray with generalized hyperinflation, no acute findings. CT of abdomen pelvis without contrast demonstrated severe fatty liver, mild hepatomegaly, normal gallbladder, exophytic isodense nodule on the lower pole of the right kidney, mild bilateral fatty groin hernia. Appendix considered normal. Ultrasound of gallbladder demonstrated partially distended gallbladder with a positive sonographic Kennedy sign, no gallstones. Also identified mild perihepatic ascites. In ER patient was given IV Zofran, morphine 4 mg x 2 IV, Ativan 1 mg IV x1. Primary Diagnosis/es: Acute cholecystitis Elevated LFTs Secondary Diagnosis/es: Anxiety depression Hyperlipidemia Chronic tobacco use Chronic alcohol abuse SANA Hypothyroidism COPD with emphysema Chronic back pain PTSD Chronic anemia unknown etiology Gastroesophageal reflux disease Pulmonary embolus Consultants: Surgery: Dr. Gaye Gordon testing done: ----- -Labwork: See above 05/13/2020 WBC 8.9, hemoglobin 11.4, hematocrit 36.8, elevated indices, RDW of 51.0, platelet count 171, absolute neutrophil count elevated at 7.8. Electrolytes all within normal limits except anion gap of 2, BUN of 2, creatinine 0.68 with estimated GFR of 97. Glucose 148, calcium 8.2. Bilirubin normal, AST 162, ALT 139, alk phosphatase 81 normal, total protein and albumin low 6.3, 2.1 respectively ----- -Imaging: As above 05/12/2020 hepatobiliary scan nuclear medicine: No scintigraphic evidence of cholecystitis or biliary obstruction ----- -Cardiac: ----- -Other: ----- Procedures/ Surgery: Surgery: Laparoscopic cholecystectomy with surgical findings of thickened gallbladder wall with areas of gangrene, enlarged liver with fatty infiltration ascites Hospital course: As above patient was admitted, IV fluid, pain management, taken to surgery. Patient had successful recovery and discharged in a stable condition. Instructions were to return to activity but no driving while taking narcotic medication Medication Reconciliation: Completed Patient was given oxycodone 5 mg every 12 hours #10 documented as of this encounter (statuses as of 03/25/2022) [facility]11-13-2021 History of Past illness Narrative* Problem Noted Date Resolved Date Encounter for support and coordination of transi tion of care 05/02/2021 07/23/2021 Overview: Hospital discharge summary: Date of admission 05/01/2021 Date of discharge: Facility: [facility] 05/01/2021 presented to the emergency room with acute alcohol intoxication, initial alcohol level 7-8. Acknowledges over the last 5 months drinking 15 packs a day at 8% alcohol (natty daddy). Vital signs 96.6 [id number]-78-18-111/73-98%. Appearance was no acute distress. WBC 7.9-Hgb 13.8-HCT 39.7-PLT 306. NA 130 2L-K3.7-CL 90 6L-CO2 26.0-BUN 20.5H- CRE 0.93-GLU 111 Admitted from ER to detox unit Active problem list: 1. Alcohol dependence: Started on phenobarbital, gabapentin as needed dicyclomine as needed, Vistaril as needed, Imodium as needed, trazodone as needed, Zofran as needed, scheduled thiamine and scheduled folic acid. 2. Tobacco abuse: Nicotine patch prescribed, tobacco withheld. 3. Marijuana abuse: Counseled 4. Anxiety depression, PTSD: Continue home medications 5. COPD with home oxygen use: Stable, continue supplements duration O2 with continuous pulse oximetry per patient. 6. Hyponatremia chronic: Stable 7 DVT risk low: Encourage ambulation. Mild protein-calorie malnutrition 08/26/2020 11/12/2021 Encounter for support and coordination of transi tion of care 05/15/2020 05/02/2021 Overview: HOSPITAL/ER FOLLOW UP Which facility: [facility] Dates of visit: 05/10-05/13/2020 Preadmission evaluation: ER with right-sided abdominal pain over 2-1/2 hours, 10 out of 10. Worse with coughing. States she vomited 20 times the day before, with episodes of diarrhea over the past 2 days. Had used Imodium which improved diarrhea. No known exposures to Covid. Also identified chest pain which started approximately 2:00 that afternoon. Subjective fever and chills, chronic cough that is unchanged. Patient was afebrile with temp of 99.4 Fahrenheit, heart rate of 95, blood pressure 147/92. O2 saturation 94% but patient was started on O2 at 2 L per nasal cannula abdominal exam with severe tenderness over epigastric and right upper quadrant and right lower quadrant. No distention. CBC showed white count of 15.2 with neutrophils of 70. Hemoglobin 14.9, platelet 227, CMP within normal limits except for sodium of 134, glucose 107, total bili 1.5, AST and ALT 5 5/277, alk phos 122, troponin negative. Lipase 170. Covid rapid test negative. Ethanol 64. Chest x-ray with generalized hyperinflation, no acute findings. CT of abdomen pelvis without contrast demonstrated severe fatty liver, mild hepatomegaly, normal gallbladder, exophytic isodense nodule on the lower pole of the right kidney, mild bilateral fatty groin hernia. Appendix considered normal. Ultrasound of gallbladder demonstrated partially distended gallbladder with a positive sonographic Kennedy sign, no gallstones. Also identified mild perihepatic ascites. In ER patient was given IV Zofran, morphine 4 mg x 2 IV, Ativan 1 mg IV x1. Primary Diagnosis/es: Acute cholecystitis Elevated LFTs Secondary Diagnosis/es: Anxiety depression Hyperlipidemia Chronic tobacco use Chronic alcohol abuse SANA Hypothyroidism COPD with emphysema Chronic back pain PTSD Chronic anemia unknown etiology Gastroesophageal reflux disease Pulmonary embolus Consultants: Surgery: Dr. Gaye Gordon testing done: ----- -Labwork: See above 05/13/2020 WBC 8.9, hemoglobin 11.4, hematocrit 36.8, elevated indices, RDW of 51.0, platelet count 171, absolute neutrophil count elevated at 7.8. Electrolytes all within normal limits except anion gap of 2, BUN of 2, creatinine 0.68 with estimated GFR of 97. Glucose 148, calcium 8.2. Bilirubin normal, AST 162, ALT 139, alk phosphatase 81 normal, total protein and albumin low 6.3, 2.1 respectively ----- -Imaging: As above 05/12/2020 hepatobiliary scan nuclear medicine: No scintigraphic evidence of cholecystitis or biliary obstruction ----- -Cardiac: ----- -Other: ----- Procedures/ Surgery: Surgery: Laparoscopic cholecystectomy with surgical findings of thickened gallbladder wall with areas of gangrene, enlarged liver with fatty infiltration ascites Hospital course: As above patient was admitted, IV fluid, pain management, taken to surgery. Patient had successful recovery and discharged in a stable condition. Instructions were to return to activity but no driving while taking narcotic medication Medication Reconciliation: Completed Patient was given oxycodone 5 mg every 12 hours #10 documented as of this encounter (statuses as of 03/26/2022) [facility]11-13-2021 History of Past illness Narrative* Problem Noted Date Resolved Date Encounter for support and coordination of transi tion of care 05/02/2021 07/23/2021 Overview: Hospital discharge summary: Date of admission 05/01/2021 Date of discharge: Facility: [facility] 05/01/2021 presented to the emergency room with acute alcohol intoxication, initial alcohol level 7-8. Acknowledges over the last 5 months drinking 15 packs a day at 8% alcohol (marcin samaniego). Vital signs 96.6 F-78-18-111/73-98%. Appearance was no acute distress. WBC 7.9-Hgb 13.8-HCT 39.7-PLT 306. NA 130 2L-K3.7-CL 90 6L-CO2 26.0-BUN 20.5H- CRE 0.93-GLU 111 Admitted from ER to detox unit Active problem list: 1. Alcohol dependence: Started on phenobarbital, gabapentin as needed dicyclomine as needed, Vistaril as needed, Imodium as needed, trazodone as needed, Zofran as needed, scheduled thiamine and scheduled folic acid. 2. Tobacco abuse: Nicotine patch prescribed, tobacco withheld. 3. Marijuana abuse: Counseled 4. Anxiety depression, PTSD: Continue home medications 5. COPD with home oxygen use: Stable, continue supplements duration O2 with continuous pulse oximetry per patient. 6. Hyponatremia chronic: Stable 7 DVT risk low: Encourage ambulation. Mild protein-calorie malnutrition 08/26/2020 11/12/2021 Encounter for support and coordination of transi tion of care 05/15/2020 05/02/2021 Overview: HOSPITAL/ER FOLLOW UP Which facility: [facility] Dates of visit: 05/10-05/13/2020 Preadmission evaluation: ER with right-sided abdominal pain over 2-1/2 hours, 10 out of 10. Worse with coughing. States she vomited 20 times the day before, with episodes of diarrhea over the past 2 days. Had used Imodium which improved diarrhea. No known exposures to Covid. Also identified chest pain which started approximately 2:00 that afternoon. Subjective fever and chills, chronic cough that is unchanged. Patient was afebrile with temp of 99.4 Fahrenheit, heart rate of 95, blood pressure 147/92. O2 saturation 94% but patient was started on O2 at 2 L per nasal cannula abdominal exam with severe tenderness over epigastric and right upper quadrant and right lower quadrant. No distention. CBC showed white count of 15.2 with neutrophils of 70. Hemoglobin 14.9, platelet 227, CMP within normal limits except for sodium of 134, glucose 107, total bili 1.5, AST and ALT 5 5/277, alk phos 122, troponin negative. Lipase 170. Covid rapid test negative. Ethanol 64. Chest x-ray with generalized hyperinflation, no acute findings. CT of abdomen pelvis without contrast demonstrated severe fatty liver, mild hepatomegaly, normal gallbladder, exophytic isodense nodule on the lower pole of the right kidney, mild bilateral fatty groin hernia. Appendix considered normal. Ultrasound of gallbladder demonstrated partially distended gallbladder with a positive sonographic Kennedy sign, no gallstones. Also identified mild perihepatic ascites. In ER patient was given IV Zofran, morphine 4 mg x 2 IV, Ativan 1 mg IV x1. Primary Diagnosis/es: Acute cholecystitis Elevated LFTs Secondary Diagnosis/es: Anxiety depression Hyperlipidemia Chronic tobacco use Chronic alcohol abuse SANA Hypothyroidism COPD with emphysema Chronic back pain PTSD Chronic anemia unknown etiology Gastroesophageal reflux disease Pulmonary embolus Consultants: Surgery: Dr. Gaye Gordon testing done: ----- -Labwork: See above 05/13/2020 WBC 8.9, hemoglobin 11.4, hematocrit 36.8, elevated indices, RDW of 51.0, platelet count 171, absolute neutrophil count elevated at 7.8. Electrolytes all within normal limits except anion gap of 2, BUN of 2, creatinine 0.68 with estimated GFR of 97. Glucose 148, calcium 8.2. Bilirubin normal, AST 162, ALT 139, alk phosphatase 81 normal, total protein and albumin low 6.3, 2.1 respectively ----- -Imaging: As above 05/12/2020 hepatobiliary scan nuclear medicine: No scintigraphic evidence of cholecystitis or biliary obstruction ----- -Cardiac: ----- -Other: ----- Procedures/ Surgery: Surgery: Laparoscopic cholecystectomy with surgical findings of thickened gallbladder wall with areas of gangrene, enlarged liver with fatty infiltration ascites Hospital course: As above patient was admitted, IV fluid, pain management, taken to surgery. Patient had successful recovery and discharged in a stable condition. Instructions were to return to activity but no driving while taking narcotic medication Medication Reconciliation: Completed Patient was given oxycodone 5 mg every 12 hours #10 documented as of this encounter (statuses as of 04/01/2022) [facility]11-13-2021 History of Past illness Narrative* Problem Noted Date Resolved Date Encounter for support and coordination of transi tion of care 05/02/2021 07/23/2021 Overview: Hospital discharge summary: Date of admission 05/01/2021 Date of discharge: Facility: [facility] 05/01/2021 presented to the emergency room with acute alcohol intoxication, initial alcohol level 7-8. Acknowledges over the last 5 months drinking 15 packs a day at 8% alcohol (marcin samaniego). Vital signs 96.6 F-78-18-111/73-98%. Appearance was no acute distress. WBC 7.9-Hgb 13.8-HCT 39.7-PLT 306. NA 130 2L-K3.7-CL 90 6L-CO2 26.0-BUN 20.5H- CRE 0.93-GLU 111 Admitted from ER to detox unit Active problem list: 1. Alcohol dependence: Started on phenobarbital, gabapentin as needed dicyclomine as needed, Vistaril as needed, Imodium as needed, trazodone as needed, Zofran as needed, scheduled thiamine and scheduled folic acid. 2. Tobacco abuse: Nicotine patch prescribed, tobacco withheld. 3. Marijuana abuse: Counseled 4. Anxiety depression, PTSD: Continue home medications 5. COPD with home oxygen use: Stable, continue supplements duration O2 with continuous pulse oximetry per patient. 6. Hyponatremia chronic: Stable 7 DVT risk low: Encourage ambulation. Mild protein-calorie malnutrition 08/26/2020 11/12/2021 Encounter for support and coordination of transi tion of care 05/15/2020 05/02/2021 Overview: HOSPITAL/ER FOLLOW UP Which facility: [facility] Dates of visit: 05/10-05/13/2020 Preadmission evaluation: ER with right-sided abdominal pain over 2-1/2 hours, 10 out of 10. Worse with coughing. States she vomited 20 times the day before, with episodes of diarrhea over the past 2 days. Had used Imodium which improved diarrhea. No known exposures to Covid. Also identified chest pain which started approximately 2:00 that afternoon. Subjective fever and chills, chronic cough that is unchanged. Patient was afebrile with temp of 99.4 Fahrenheit, heart rate of 95, blood pressure 147/92. O2 saturation 94% but patient was started on O2 at 2 L per nasal cannula abdominal exam with severe tenderness over epigastric and right upper quadrant and right lower quadrant. No distention. CBC showed white count of 15.2 with neutrophils of 70. Hemoglobin 14.9, platelet 227, CMP within normal limits except for sodium of 134, glucose 107, total bili 1.5, AST and ALT 5 5/277, alk phos 122, troponin negative. Lipase 170. Covid rapid test negative. Ethanol 64. Chest x-ray with generalized hyperinflation, no acute findings. CT of abdomen pelvis without contrast demonstrated severe fatty liver, mild hepatomegaly, normal gallbladder, exophytic isodense nodule on the lower pole of the right kidney, mild bilateral fatty groin hernia. Appendix considered normal. Ultrasound of gallbladder demonstrated partially distended gallbladder with a positive sonographic Kennedy sign, no gallstones. Also identified mild perihepatic ascites. In ER patient was given IV Zofran, morphine 4 mg x 2 IV, Ativan 1 mg IV x1. Primary Diagnosis/es: Acute cholecystitis Elevated LFTs Secondary Diagnosis/es: Anxiety depression Hyperlipidemia Chronic tobacco use Chronic alcohol abuse SANA Hypothyroidism COPD with emphysema Chronic back pain PTSD Chronic anemia unknown etiology Gastroesophageal reflux disease Pulmonary embolus Consultants: Surgery: Dr. Gaye Gordon testing done: ----- -Labwork: See above 05/13/2020 WBC 8.9, hemoglobin 11.4, hematocrit 36.8, elevated indices, RDW of 51.0, platelet count 171, absolute neutrophil count elevated at 7.8. Electrolytes all within normal limits except anion gap of 2, BUN of 2, creatinine 0.68 with estimated GFR of 97. Glucose 148, calcium 8.2. Bilirubin normal, AST 162, ALT 139, alk phosphatase 81 normal, total protein and albumin low 6.3, 2.1 respectively ----- -Imaging: As above 05/12/2020 hepatobiliary scan nuclear medicine: No scintigraphic evidence of cholecystitis or biliary obstruction ----- -Cardiac: ----- -Other: ----- Procedures/ Surgery: Surgery: Laparoscopic cholecystectomy with surgical findings of thickened gallbladder wall with areas of gangrene, enlarged liver with fatty infiltration ascites Hospital course: As above patient was admitted, IV fluid, pain management, taken to surgery. Patient had successful recovery and discharged in a stable condition. Instructions were to return to activity but no driving while taking narcotic medication Medication Reconciliation: Completed Patient was given oxycodone 5 mg every 12 hours #10 documented as of this encounter (statuses as of 04/12/2022) [facility]11-13-2021 History of Past illness Narrative* Problem Noted Date Resolved Date Encounter for support and coordination of transi tion of care 05/02/2021 07/23/2021 Overview: Hospital discharge summary: Date of admission 05/01/2021 Date of discharge: Facility: [facility] 05/01/2021 presented to the emergency room with acute alcohol intoxication, initial alcohol level 7-8. Acknowledges over the last 5 months drinking 15 packs a day at 8% alcohol (marcin samaniego). Vital signs 96.6 [id number]-78-18-111/73-98%. Appearance was no acute distress. WBC 7.9-Hgb 13.8-HCT 39.7-PLT 306. NA 130 2L-K3.7-CL 90 6L-CO2 26.0-BUN 20.5H- CRE 0.93-GLU 111 Admitted from ER to detox unit Active problem list: 1. Alcohol dependence: Started on phenobarbital, gabapentin as needed dicyclomine as needed, Vistaril as needed, Imodium as needed, trazodone as needed, Zofran as needed, scheduled thiamine and scheduled folic acid. 2. Tobacco abuse: Nicotine patch prescribed, tobacco withheld. 3. Marijuana abuse: Counseled 4. Anxiety depression, PTSD: Continue home medications 5. COPD with home oxygen use: Stable, continue supplements duration O2 with continuous pulse oximetry per patient. 6. Hyponatremia chronic: Stable 7 DVT risk low: Encourage ambulation. Mild protein-calorie malnutrition 08/26/2020 11/12/2021 Encounter for support and coordination of transi tion of care 05/15/2020 05/02/2021 Overview: HOSPITAL/ER FOLLOW UP Which facility: [facility] Dates of visit: 05/10-05/13/2020 Preadmission evaluation: ER with right-sided abdominal pain over 2-1/2 hours, 10 out of 10. Worse with coughing. States she vomited 20 times the day before, with episodes of diarrhea over the past 2 days. Had used Imodium which improved diarrhea. No known exposures to Covid. Also identified chest pain which started approximately 2:00 that afternoon. Subjective fever and chills, chronic cough that is unchanged. Patient was afebrile with temp of 99.4 Fahrenheit, heart rate of 95, blood pressure 147/92. O2 saturation 94% but patient was started on O2 at 2 L per nasal cannula abdominal exam with severe tenderness over epigastric and right upper quadrant and right lower quadrant. No distention. CBC showed white count of 15.2 with neutrophils of 70. Hemoglobin 14.9, platelet 227, CMP within normal limits except for sodium of 134, glucose 107, total bili 1.5, AST and ALT 5 5/277, alk phos 122, troponin negative. Lipase 170. Covid rapid test negative. Ethanol 64. Chest x-ray with generalized hyperinflation, no acute findings. CT of abdomen pelvis without contrast demonstrated severe fatty liver, mild hepatomegaly, normal gallbladder, exophytic isodense nodule on the lower pole of the right kidney, mild bilateral fatty groin hernia. Appendix considered normal. Ultrasound of gallbladder demonstrated partially distended gallbladder with a positive sonographic Kennedy sign, no gallstones. Also identified mild perihepatic ascites. In ER patient was given IV Zofran, morphine 4 mg x 2 IV, Ativan 1 mg IV x1. Primary Diagnosis/es: Acute cholecystitis Elevated LFTs Secondary Diagnosis/es: Anxiety depression Hyperlipidemia Chronic tobacco use Chronic alcohol abuse SANA Hypothyroidism COPD with emphysema Chronic back pain PTSD Chronic anemia unknown etiology Gastroesophageal reflux disease Pulmonary embolus Consultants: Surgery: Dr. Gaye Gordon testing done: ----- -Labwork: See above 05/13/2020 WBC 8.9, hemoglobin 11.4, hematocrit 36.8, elevated indices, RDW of 51.0, platelet count 171, absolute neutrophil count elevated at 7.8. Electrolytes all within normal limits except anion gap of 2, BUN of 2, creatinine 0.68 with estimated GFR of 97. Glucose 148, calcium 8.2. Bilirubin normal, AST 162, ALT 139, alk phosphatase 81 normal, total protein and albumin low 6.3, 2.1 respectively ----- -Imaging: As above 05/12/2020 hepatobiliary scan nuclear medicine: No scintigraphic evidence of cholecystitis or biliary obstruction ----- -Cardiac: ----- -Other: ----- Procedures/ Surgery: Surgery: Laparoscopic cholecystectomy with surgical findings of thickened gallbladder wall with areas of gangrene, enlarged liver with fatty infiltration ascites Hospital course: As above patient was admitted, IV fluid, pain management, taken to surgery. Patient had successful recovery and discharged in a stable condition. Instructions were to return to activity but no driving while taking narcotic medication Medication Reconciliation: Completed Patient was given oxycodone 5 mg every 12 hours #10 documented as of this encounter (statuses as of 04/19/2022) [facility]11-13-2021 History of Past illness Narrative* Problem Noted Date Resolved Date Encounter for support and coordination of transi tion of care 05/02/2021 07/23/2021 Overview: Hospital discharge summary: Date of admission 05/01/2021 Date of discharge: Facility: [facility] 05/01/2021 presented to the emergency room with acute alcohol intoxication, initial alcohol level 7-8. Acknowledges over the last 5 months drinking 15 packs a day at 8% alcohol (marcin samaniego). Vital signs 96.6 F-78-18-111/73-98%. Appearance was no acute distress. WBC 7.9-Hgb 13.8-HCT 39.7-PLT 306. NA 130 2L-K3.7-CL 90 6L-CO2 26.0-BUN 20.5H- CRE 0.93-GLU 111 Admitted from ER to detox unit Active problem list: 1. Alcohol dependence: Started on phenobarbital, gabapentin as needed dicyclomine as needed, Vistaril as needed, Imodium as needed, trazodone as needed, Zofran as needed, scheduled thiamine and scheduled folic acid. 2. Tobacco abuse: Nicotine patch prescribed, tobacco withheld. 3. Marijuana abuse: Counseled 4. Anxiety depression, PTSD: Continue home medications 5. COPD with home oxygen use: Stable, continue supplements duration O2 with continuous pulse oximetry per patient. 6. Hyponatremia chronic: Stable 7 DVT risk low: Encourage ambulation. Mild protein-calorie malnutrition 08/26/2020 11/12/2021 Encounter for support and coordination of transi tion of care 05/15/2020 05/02/2021 Overview: HOSPITAL/ER FOLLOW UP Which facility: [facility] Dates of visit: 05/10-05/13/2020 Preadmission evaluation: ER with right-sided abdominal pain over 2-1/2 hours, 10 out of 10. Worse with coughing. States she vomited 20 times the day before, with episodes of diarrhea over the past 2 days. Had used Imodium which improved diarrhea. No known exposures to Covid. Also identified chest pain which started approximately 2:00 that afternoon. Subjective fever and chills, chronic cough that is unchanged. Patient was afebrile with temp of 99.4 Fahrenheit, heart rate of 95, blood pressure 147/92. O2 saturation 94% but patient was started on O2 at 2 L per nasal cannula abdominal exam with severe tenderness over epigastric and right upper quadrant and right lower quadrant. No distention. CBC showed white count of 15.2 with neutrophils of 70. Hemoglobin 14.9, platelet 227, CMP within normal limits except for sodium of 134, glucose 107, total bili 1.5, AST and ALT 5 /277, alk phos 122, troponin negative. Lipase 170. Covid rapid test negative. Ethanol 64. Chest x-ray with generalized hyperinflation, no acute findings. CT of abdomen pelvis without contrast demonstrated severe fatty liver, mild hepatomegaly, normal gallbladder, exophytic isodense nodule on the lower pole of the right kidney, mild bilateral fatty groin hernia. Appendix considered normal. Ultrasound of gallbladder demonstrated partially distended gallbladder with a positive sonographic Kennedy sign, no gallstones. Also identified mild perihepatic ascites. In ER patient was given IV Zofran, morphine 4 mg x 2 IV, Ativan 1 mg IV x1. Primary Diagnosis/es: Acute cholecystitis Elevated LFTs Secondary Diagnosis/es: Anxiety depression Hyperlipidemia Chronic tobacco use Chronic alcohol abuse SANA Hypothyroidism COPD with emphysema Chronic back pain PTSD Chronic anemia unknown etiology Gastroesophageal reflux disease Pulmonary embolus Consultants: Surgery: Dr. Gaye Gordon testing done: ----- -Labwork: See above 05/13/2020 WBC 8.9, hemoglobin 11.4, hematocrit 36.8, elevated indices, RDW of 51.0, platelet count 171, absolute neutrophil count elevated at 7.8. Electrolytes all within normal limits except anion gap of 2, BUN of 2, creatinine 0.68 with estimated GFR of 97. Glucose 148, calcium 8.2. Bilirubin normal, AST 162, ALT 139, alk phosphatase 81 normal, total protein and albumin low 6.3, 2.1 respectively ----- -Imaging: As above 05/12/2020 hepatobiliary scan nuclear medicine: No scintigraphic evidence of cholecystitis or biliary obstruction ----- -Cardiac: ----- -Other: ----- Procedures/ Surgery: Surgery: Laparoscopic cholecystectomy with surgical findings of thickened gallbladder wall with areas of gangrene, enlarged liver with fatty infiltration ascites Hospital course: As above patient was admitted, IV fluid, pain management, taken to surgery. Patient had successful recovery and discharged in a stable condition. Instructions were to return to activity but no driving while taking narcotic medication Medication Reconciliation: Completed Patient was given oxycodone 5 mg every 12 hours #10 documented as of this encounter (statuses as of 04/23/2022) [facility]11-13-2021 History of Past illness Narrative* Problem Noted Date Resolved Date Encounter for support and coordination of transi tion of care 05/02/2021 07/23/2021 Overview: Hospital discharge summary: Date of admission 05/01/2021 Date of discharge: Facility: [facility] 05/01/2021 presented to the emergency room with acute alcohol intoxication, initial alcohol level 7-8. Acknowledges over the last 5 months drinking 15 packs a day at 8% alcohol (natty aden). Vital signs 96.6 F-78-18-111/73-98%. Appearance was no acute distress. WBC 7.9-Hgb 13.8-HCT 39.7-PLT 306. NA 130 2L-K3.7-CL 90 6L-CO2 26.0-BUN 20.5H- CRE 0.93-GLU 111 Admitted from ER to detox unit Active problem list: 1. Alcohol dependence: Started on phenobarbital, gabapentin as needed dicyclomine as needed, Vistaril as needed, Imodium as needed, trazodone as needed, Zofran as needed, scheduled thiamine and scheduled folic acid. 2. Tobacco abuse: Nicotine patch prescribed, tobacco withheld. 3. Marijuana abuse: Counseled 4. Anxiety depression, PTSD: Continue home medications 5. COPD with home oxygen use: Stable, continue supplements duration O2 with continuous pulse oximetry per patient. 6. Hyponatremia chronic: Stable 7 DVT risk low: Encourage ambulation. Mild protein-calorie malnutrition 08/26/2020 11/12/2021 Encounter for support and coordination of transi tion of care 05/15/2020 05/02/2021 Overview: HOSPITAL/ER FOLLOW UP Which facility: [facility] Dates of visit: 05/10-05/13/2020 Preadmission evaluation: ER with right-sided abdominal pain over 2-1/2 hours, 10 out of 10. Worse with coughing. States she vomited 20 times the day before, with episodes of diarrhea over the past 2 days. Had used Imodium which improved diarrhea. No known exposures to Covid. Also identified chest pain which started approximately 2:00 that afternoon. Subjective fever and chills, chronic cough that is unchanged. Patient was afebrile with temp of 99.4 Fahrenheit, heart rate of 95, blood pressure 147/92. O2 saturation 94% but patient was started on O2 at 2 L per nasal cannula abdominal exam with severe tenderness over epigastric and right upper quadrant and right lower quadrant. No distention. CBC showed white count of 15.2 with neutrophils of 70. Hemoglobin 14.9, platelet 227, CMP within normal limits except for sodium of 134, glucose 107, total bili 1.5, AST and ALT 5 5/277, alk phos 122, troponin negative. Lipase 170. Covid rapid test negative. Ethanol 64. Chest x-ray with generalized hyperinflation, no acute findings. CT of abdomen pelvis without contrast demonstrated severe fatty liver, mild hepatomegaly, normal gallbladder, exophytic isodense nodule on the lower pole of the right kidney, mild bilateral fatty groin hernia. Appendix considered normal. Ultrasound of gallbladder demonstrated partially distended gallbladder with a positive sonographic Kennedy sign, no gallstones. Also identified mild perihepatic ascites. In ER patient was given IV Zofran, morphine 4 mg x 2 IV, Ativan 1 mg IV x1. Primary Diagnosis/es: Acute cholecystitis Elevated LFTs Secondary Diagnosis/es: Anxiety depression Hyperlipidemia Chronic tobacco use Chronic alcohol abuse SANA Hypothyroidism COPD with emphysema Chronic back pain PTSD Chronic anemia unknown etiology Gastroesophageal reflux disease Pulmonary embolus Consultants: Surgery: Dr. Gaye Gordon testing done: ----- -Labwork: See above 05/13/2020 WBC 8.9, hemoglobin 11.4, hematocrit 36.8, elevated indices, RDW of 51.0, platelet count 171, absolute neutrophil count elevated at 7.8. Electrolytes all within normal limits except anion gap of 2, BUN of 2, creatinine 0.68 with estimated GFR of 97. Glucose 148, calcium 8.2. Bilirubin normal, AST 162, ALT 139, alk phosphatase 81 normal, total protein and albumin low 6.3, 2.1 respectively ----- -Imaging: As above 05/12/2020 hepatobiliary scan nuclear medicine: No scintigraphic evidence of cholecystitis or biliary obstruction ----- -Cardiac: ----- -Other: ----- Procedures/ Surgery: Surgery: Laparoscopic cholecystectomy with surgical findings of thickened gallbladder wall with areas of gangrene, enlarged liver with fatty infiltration ascites Hospital course: As above patient was admitted, IV fluid, pain management, taken to surgery. Patient had successful recovery and discharged in a stable condition. Instructions were to return to activity but no driving while taking narcotic medication Medication Reconciliation: Completed Patient was given oxycodone 5 mg every 12 hours #10 documented as of this encounter (statuses as of 05/07/2022) [facility]11-13-2021 History of Past illness Narrative* Problem Noted Date Resolved Date Encounter for support and coordination of transi tion of care 05/02/2021 07/23/2021 Overview: Hospital discharge summary: Date of admission 05/01/2021 Date of discharge: Facility: [facility] 05/01/2021 presented to the emergency room with acute alcohol intoxication, initial alcohol level 7-8. Acknowledges over the last 5 months drinking 15 packs a day at 8% alcohol (marcin samaniego). Vital signs 96.6 F-78-18-111/73-98%. Appearance was no acute distress. WBC 7.9-Hgb 13.8-HCT 39.7-PLT 306. NA 130 2L-K3.7-CL 90 6L-CO2 26.0-BUN 20.5H- CRE 0.93-GLU 111 Admitted from ER to detox unit Active problem list: 1. Alcohol dependence: Started on phenobarbital, gabapentin as needed dicyclomine as needed, Vistaril as needed, Imodium as needed, trazodone as needed, Zofran as needed, scheduled thiamine and scheduled folic acid. 2. Tobacco abuse: Nicotine patch prescribed, tobacco withheld. 3. Marijuana abuse: Counseled 4. Anxiety depression, PTSD: Continue home medications 5. COPD with home oxygen use: Stable, continue supplements duration O2 with continuous pulse oximetry per patient. 6. Hyponatremia chronic: Stable 7 DVT risk low: Encourage ambulation. Mild protein-calorie malnutrition 08/26/2020 11/12/2021 Encounter for support and coordination of transi tion of care 05/15/2020 05/02/2021 Overview: HOSPITAL/ER FOLLOW UP Which facility: [facility] Dates of visit: 05/10-05/13/2020 Preadmission evaluation: ER with right-sided abdominal pain over 2-1/2 hours, 10 out of 10. Worse with coughing. States she vomited 20 times the day before, with episodes of diarrhea over the past 2 days. Had used Imodium which improved diarrhea. No known exposures to Covid. Also identified chest pain which started approximately 2:00 that afternoon. Subjective fever and chills, chronic cough that is unchanged. Patient was afebrile with temp of 99.4 Fahrenheit, heart rate of 95, blood pressure 147/92. O2 saturation 94% but patient was started on O2 at 2 L per nasal cannula abdominal exam with severe tenderness over epigastric and right upper quadrant and right lower quadrant. No distention. CBC showed white count of 15.2 with neutrophils of 70. Hemoglobin 14.9, platelet 227, CMP within normal limits except for sodium of 134, glucose 107, total bili 1.5, AST and ALT 5 5/277, alk phos 122, troponin negative. Lipase 170. Covid rapid test negative. Ethanol 64. Chest x-ray with generalized hyperinflation, no acute findings. CT of abdomen pelvis without contrast demonstrated severe fatty liver, mild hepatomegaly, normal gallbladder, exophytic isodense nodule on the lower pole of the right kidney, mild bilateral fatty groin hernia. Appendix considered normal. Ultrasound of gallbladder demonstrated partially distended gallbladder with a positive sonographic Kennedy sign, no gallstones. Also identified mild perihepatic ascites. In ER patient was given IV Zofran, morphine 4 mg x 2 IV, Ativan 1 mg IV x1. Primary Diagnosis/es: Acute cholecystitis Elevated LFTs Secondary Diagnosis/es: Anxiety depression Hyperlipidemia Chronic tobacco use Chronic alcohol abuse SANA Hypothyroidism COPD with emphysema Chronic back pain PTSD Chronic anemia unknown etiology Gastroesophageal reflux disease Pulmonary embolus Consultants: Surgery: Dr. Gaye Gordon testing done: ----- -Labwork: See above 05/13/2020 WBC 8.9, hemoglobin 11.4, hematocrit 36.8, elevated indices, RDW of 51.0, platelet count 171, absolute neutrophil count elevated at 7.8. Electrolytes all within normal limits except anion gap of 2, BUN of 2, creatinine 0.68 with estimated GFR of 97. Glucose 148, calcium 8.2. Bilirubin normal, AST 162, ALT 139, alk phosphatase 81 normal, total protein and albumin low 6.3, 2.1 respectively ----- -Imaging: As above 05/12/2020 hepatobiliary scan nuclear medicine: No scintigraphic evidence of cholecystitis or biliary obstruction ----- -Cardiac: ----- -Other: ----- Procedures/ Surgery: Surgery: Laparoscopic cholecystectomy with surgical findings of thickened gallbladder wall with areas of gangrene, enlarged liver with fatty infiltration ascites Hospital course: As above patient was admitted, IV fluid, pain management, taken to surgery. Patient had successful recovery and discharged in a stable condition. Instructions were to return to activity but no driving while taking narcotic medication Medication Reconciliation: Completed Patient was given oxycodone 5 mg every 12 hours #10 documented as of this encounter (statuses as of 05/07/2022) [facility]-13-[facility]21 History of Past illness Narrative* Problem Noted Date Resolved Date Encounter for support and coordination of transi tion of care 05/02/2021 07/23/2021 Overview: Hospital discharge summary: Date of admission 05/01/2021 Date of discharge: Facility: [facility] 05/01/2021 presented to the emergency room with acute alcohol intoxication, initial alcohol level 7-8. Acknowledges over the last 5 months drinking 15 packs a day at 8% alcohol (marcin samaniego). Vital signs 96.6 F-78-18-111/73-98%. Appearance was no acute distress. WBC 7.9-Hgb 13.8-HCT 39.7-PLT 306. NA 130 2L-K3.7-CL 90 6L-CO2 26.0-BUN 20.5H- CRE 0.93-GLU 111 Admitted from ER to detox unit Active problem list: 1. Alcohol dependence: Started on phenobarbital, gabapentin as needed dicyclomine as needed, Vistaril as needed, Imodium as needed, trazodone as needed, Zofran as needed, scheduled thiamine and scheduled folic acid. 2. Tobacco abuse: Nicotine patch prescribed, tobacco withheld. 3. Marijuana abuse: Counseled 4. Anxiety depression, PTSD: Continue home medications 5. COPD with home oxygen use: Stable, continue supplements duration O2 with continuous pulse oximetry per patient. 6. Hyponatremia chronic: Stable 7 DVT risk low: Encourage ambulation. Mild protein-calorie malnutrition 08/26/2020 11/12/2021 Encounter for support and coordination of transi tion of care 05/15/2020 05/02/2021 Overview: HOSPITAL/ER FOLLOW UP Which facility: [facility] Dates of visit: 05/10-05/13/2020 Preadmission evaluation: ER with right-sided abdominal pain over 2-1/2 hours, 10 out of 10. Worse with coughing. States she vomited 20 times the day before, with episodes of diarrhea over the past 2 days. Had used Imodium which improved diarrhea. No known exposures to Covid. Also identified chest pain which started approximately 2:00 that afternoon. Subjective fever and chills, chronic cough that is unchanged. Patient was afebrile with temp of 99.4 Fahrenheit, heart rate of 95, blood pressure 147/92. O2 saturation 94% but patient was started on O2 at 2 L per nasal cannula abdominal exam with severe tenderness over epigastric and right upper quadrant and right lower quadrant. No distention. CBC showed white count of 15.2 with neutrophils of 70. Hemoglobin 14.9, platelet 227, CMP within normal limits except for sodium of 134, glucose 107, total bili 1.5, AST and ALT 5 5/277, alk phos 122, troponin negative. Lipase 170. Covid rapid test negative. Ethanol 64. Chest x-ray with generalized hyperinflation, no acute findings. CT of abdomen pelvis without contrast demonstrated severe fatty liver, mild hepatomegaly, normal gallbladder, exophytic isodense nodule on the lower pole of the right kidney, mild bilateral fatty groin hernia. Appendix considered normal. Ultrasound of gallbladder demonstrated partially distended gallbladder with a positive sonographic Knenedy sign, no gallstones. Also identified mild perihepatic ascites. In ER patient was given IV Zofran, morphine 4 mg x 2 IV, Ativan 1 mg IV x1. Primary Diagnosis/es: Acute cholecystitis Elevated LFTs Secondary Diagnosis/es: Anxiety depression Hyperlipidemia Chronic tobacco use Chronic alcohol abuse SANA Hypothyroidism COPD with emphysema Chronic back pain PTSD Chronic anemia unknown etiology Gastroesophageal reflux disease Pulmonary embolus Consultants: Surgery: Dr. Gaye Gordon testing done: ----- -Labwork: See above 05/13/2020 WBC 8.9, hemoglobin 11.4, hematocrit 36.8, elevated indices, RDW of 51.0, platelet count 171, absolute neutrophil count elevated at 7.8. Electrolytes all within normal limits except anion gap of 2, BUN of 2, creatinine 0.68 with estimated GFR of 97. Glucose 148, calcium 8.2. Bilirubin normal, AST 162, ALT 139, alk phosphatase 81 normal, total protein and albumin low 6.3, 2.1 respectively ----- -Imaging: As above 05/12/2020 hepatobiliary scan nuclear medicine: No scintigraphic evidence of cholecystitis or biliary obstruction ----- -Cardiac: ----- -Other: ----- Procedures/ Surgery: Surgery: Laparoscopic cholecystectomy with surgical findings of thickened gallbladder wall with areas of gangrene, enlarged liver with fatty infiltration ascites Hospital course: As above patient was admitted, IV fluid, pain management, taken to surgery. Patient had successful recovery and discharged in a stable condition. Instructions were to return to activity but no driving while taking narcotic medication Medication Reconciliation: Completed Patient was given oxycodone 5 mg every 12 hours #10 documented as of this encounter (statuses as of 05/11/2022) [facility]11-13-2021 History of Past illness Narrative* Problem Noted Date Resolved Date Encounter for support and coordination of transi tion of care 05/02/2021 07/23/2021 Overview: Hospital discharge summary: Date of admission 05/01/2021 Date of discharge: Facility: [facility] 05/01/2021 presented to the emergency room with acute alcohol intoxication, initial alcohol level 7-8. Acknowledges over the last 5 months drinking 15 packs a day at 8% alcohol (nataidan samaniego). Vital signs 96.6 [id number]-78-18-111/73-98%. Appearance was no acute distress. WBC 7.9-Hgb 13.8-HCT 39.7-PLT 306. NA 130 2L-K3.7-CL 90 6L-CO2 26.0-BUN 20.5H- CRE 0.93-GLU 111 Admitted from ER to detox unit Active problem list: 1. Alcohol dependence: Started on phenobarbital, gabapentin as needed dicyclomine as needed, Vistaril as needed, Imodium as needed, trazodone as needed, Zofran as needed, scheduled thiamine and scheduled folic acid. 2. Tobacco abuse: Nicotine patch prescribed, tobacco withheld. 3. Marijuana abuse: Counseled 4. Anxiety depression, PTSD: Continue home medications 5. COPD with home oxygen use: Stable, continue supplements duration O2 with continuous pulse oximetry per patient. 6. Hyponatremia chronic: Stable 7 DVT risk low: Encourage ambulation. Mild protein-calorie malnutrition 08/26/2020 11/12/2021 Encounter for support and coordination of transi tion of care 05/15/2020 05/02/2021 Overview: HOSPITAL/ER FOLLOW UP Which facility: [facility] Dates of visit: 05/10-05/13/2020 Preadmission evaluation: ER with right-sided abdominal pain over 2-1/2 hours, 10 out of 10. Worse with coughing. States she vomited 20 times the day before, with episodes of diarrhea over the past 2 days. Had used Imodium which improved diarrhea. No known exposures to Covid. Also identified chest pain which started approximately 2:00 that afternoon. Subjective fever and chills, chronic cough that is unchanged. Patient was afebrile with temp of 99.4 Fahrenheit, heart rate of 95, blood pressure 147/92. O2 saturation 94% but patient was started on O2 at 2 L per nasal cannula abdominal exam with severe tenderness over epigastric and right upper quadrant and right lower quadrant. No distention. CBC showed white count of 15.2 with neutrophils of 70. Hemoglobin 14.9, platelet 227, CMP within normal limits except for sodium of 134, glucose 107, total bili 1.5, AST and ALT 5 5/277, alk phos 122, troponin negative. Lipase 170. Covid rapid test negative. Ethanol 64. Chest x-ray with generalized hyperinflation, no acute findings. CT of abdomen pelvis without contrast demonstrated severe fatty liver, mild hepatomegaly, normal gallbladder, exophytic isodense nodule on the lower pole of the right kidney, mild bilateral fatty groin hernia. Appendix considered normal. Ultrasound of gallbladder demonstrated partially distended gallbladder with a positive sonographic Kennedy sign, no gallstones. Also identified mild perihepatic ascites. In ER patient was given IV Zofran, morphine 4 mg x 2 IV, Ativan 1 mg IV x1. Primary Diagnosis/es: Acute cholecystitis Elevated LFTs Secondary Diagnosis/es: Anxiety depression Hyperlipidemia Chronic tobacco use Chronic alcohol abuse SANA Hypothyroidism COPD with emphysema Chronic back pain PTSD Chronic anemia unknown etiology Gastroesophageal reflux disease Pulmonary embolus Consultants: Surgery: Dr. Gaye Gordon testing done: ----- -Labwork: See above 05/13/2020 WBC 8.9, hemoglobin 11.4, hematocrit 36.8, elevated indices, RDW of 51.0, platelet count 171, absolute neutrophil count elevated at 7.8. Electrolytes all within normal limits except anion gap of 2, BUN of 2, creatinine 0.68 with estimated GFR of 97. Glucose 148, calcium 8.2. Bilirubin normal, AST 162, ALT 139, alk phosphatase 81 normal, total protein and albumin low 6.3, 2.1 respectively ----- -Imaging: As above 05/12/2020 hepatobiliary scan nuclear medicine: No scintigraphic evidence of cholecystitis or biliary obstruction ----- -Cardiac: ----- -Other: ----- Procedures/ Surgery: Surgery: Laparoscopic cholecystectomy with surgical findings of thickened gallbladder wall with areas of gangrene, enlarged liver with fatty infiltration ascites Hospital course: As above patient was admitted, IV fluid, pain management, taken to surgery. Patient had successful recovery and discharged in a stable condition. Instructions were to return to activity but no driving while taking narcotic medication Medication Reconciliation: Completed Patient was given oxycodone 5 mg every 12 hours #10 documented as of this encounter (statuses as of 05/14/2022) [facility]11-13-2021 History of Past illness Narrative* Problem Noted Date Resolved Date Encounter for support and coordination of transi tion of care 05/02/2021 07/23/2021 Overview: Hospital discharge summary: Date of admission 05/01/2021 Date of discharge: Facility: [facility] 05/01/2021 presented to the emergency room with acute alcohol intoxication, initial alcohol level 7-8. Acknowledges over the last 5 months drinking 15 packs a day at 8% alcohol (marcin samaniego). Vital signs 96.6 [id number]-78-18-111/73-98%. Appearance was no acute distress. WBC 7.9-Hgb 13.8-HCT 39.7-PLT 306. NA 130 2L-K3.7-CL 90 6L-CO2 26.0-BUN 20.5H- CRE 0.93-GLU 111 Admitted from ER to detox unit Active problem list: 1. Alcohol dependence: Started on phenobarbital, gabapentin as needed dicyclomine as needed, Vistaril as needed, Imodium as needed, trazodone as needed, Zofran as needed, scheduled thiamine and scheduled folic acid. 2. Tobacco abuse: Nicotine patch prescribed, tobacco withheld. 3. Marijuana abuse: Counseled 4. Anxiety depression, PTSD: Continue home medications 5. COPD with home oxygen use: Stable, continue supplements duration O2 with continuous pulse oximetry per patient. 6. Hyponatremia chronic: Stable 7 DVT risk low: Encourage ambulation. Mild protein-calorie malnutrition 08/26/2020 11/12/2021 Encounter for support and coordination of transi tion of care 05/15/2020 05/02/2021 Overview: HOSPITAL/ER FOLLOW UP Which facility: [facility] Dates of visit: 05/10-05/13/2020 Preadmission evaluation: ER with right-sided abdominal pain over 2-1/2 hours, 10 out of 10. Worse with coughing. States she vomited 20 times the day before, with episodes of diarrhea over the past 2 days. Had used Imodium which improved diarrhea. No known exposures to Covid. Also identified chest pain which started approximately 2:00 that afternoon. Subjective fever and chills, chronic cough that is unchanged. Patient was afebrile with temp of 99.4 Fahrenheit, heart rate of 95, blood pressure 147/92. O2 saturation 94% but patient was started on O2 at 2 L per nasal cannula abdominal exam with severe tenderness over epigastric and right upper quadrant and right lower quadrant. No distention. CBC showed white count of 15.2 with neutrophils of 70. Hemoglobin 14.9, platelet 227, CMP within normal limits except for sodium of 134, glucose 107, total bili 1.5, AST and ALT 5 5/277, alk phos 122, troponin negative. Lipase 170. Covid rapid test negative. Ethanol 64. Chest x-ray with generalized hyperinflation, no acute findings. CT of abdomen pelvis without contrast demonstrated severe fatty liver, mild hepatomegaly, normal gallbladder, exophytic isodense nodule on the lower pole of the right kidney, mild bilateral fatty groin hernia. Appendix considered normal. Ultrasound of gallbladder demonstrated partially distended gallbladder with a positive sonographic Kennedy sign, no gallstones. Also identified mild perihepatic ascites. In ER patient was given IV Zofran, morphine 4 mg x 2 IV, Ativan 1 mg IV x1. Primary Diagnosis/es: Acute cholecystitis Elevated LFTs Secondary Diagnosis/es: Anxiety depression Hyperlipidemia Chronic tobacco use Chronic alcohol abuse SANA Hypothyroidism COPD with emphysema Chronic back pain PTSD Chronic anemia unknown etiology Gastroesophageal reflux disease Pulmonary embolus Consultants: Surgery: Dr. Gaye Gordon testing done: ----- -Labwork: See above 05/13/2020 WBC 8.9, hemoglobin 11.4, hematocrit 36.8, elevated indices, RDW of 51.0, platelet count 171, absolute neutrophil count elevated at 7.8. Electrolytes all within normal limits except anion gap of 2, BUN of 2, creatinine 0.68 with estimated GFR of 97. Glucose 148, calcium 8.2. Bilirubin normal, AST 162, ALT 139, alk phosphatase 81 normal, total protein and albumin low 6.3, 2.1 respectively ----- -Imaging: As above 05/12/2020 hepatobiliary scan nuclear medicine: No scintigraphic evidence of cholecystitis or biliary obstruction ----- -Cardiac: ----- -Other: ----- Procedures/ Surgery: Surgery: Laparoscopic cholecystectomy with surgical findings of thickened gallbladder wall with areas of gangrene, enlarged liver with fatty infiltration ascites Hospital course: As above patient was admitted, IV fluid, pain management, taken to surgery. Patient had successful recovery and discharged in a stable condition. Instructions were to return to activity but no driving while taking narcotic medication Medication Reconciliation: Completed Patient was given oxycodone 5 mg every 12 hours #10 documented as of this encounter (statuses as of 05/20/2022) [facility]11-13-2021 History of Past illness Narrative* Problem Noted Date Resolved Date Encounter for support and coordination of transi tion of care 05/02/2021 07/23/2021 Overview: Hospital discharge summary: Date of admission 05/01/2021 Date of discharge: Facility: [facility] 05/01/2021 presented to the emergency room with acute alcohol intoxication, initial alcohol level 7-8. Acknowledges over the last 5 months drinking 15 packs a day at 8% alcohol (nataidan samaniego). Vital signs 96.6 F-78-18-111/73-98%. Appearance was no acute distress. WBC 7.9-Hgb 13.8-HCT 39.7-PLT 306. NA 130 2L-K3.7-CL 90 6L-CO2 26.0-BUN 20.5H- CRE 0.93-GLU 111 Admitted from ER to detox unit Active problem list: 1. Alcohol dependence: Started on phenobarbital, gabapentin as needed dicyclomine as needed, Vistaril as needed, Imodium as needed, trazodone as needed, Zofran as needed, scheduled thiamine and scheduled folic acid. 2. Tobacco abuse: Nicotine patch prescribed, tobacco withheld. 3. Marijuana abuse: Counseled 4. Anxiety depression, PTSD: Continue home medications 5. COPD with home oxygen use: Stable, continue supplements duration O2 with continuous pulse oximetry per patient. 6. Hyponatremia chronic: Stable 7 DVT risk low: Encourage ambulation. Mild protein-calorie malnutrition 08/26/2020 11/12/2021 Encounter for support and coordination of transi tion of care 05/15/2020 05/02/2021 Overview: HOSPITAL/ER FOLLOW UP Which facility: [facility] Dates of visit: 05/10-05/13/2020 Preadmission evaluation: ER with right-sided abdominal pain over 2-1/2 hours, 10 out of 10. Worse with coughing. States she vomited 20 times the day before, with episodes of diarrhea over the past 2 days. Had used Imodium which improved diarrhea. No known exposures to Covid. Also identified chest pain which started approximately 2:00 that afternoon. Subjective fever and chills, chronic cough that is unchanged. Patient was afebrile with temp of 99.4 Fahrenheit, heart rate of 95, blood pressure 147/92. O2 saturation 94% but patient was started on O2 at 2 L per nasal cannula abdominal exam with severe tenderness over epigastric and right upper quadrant and right lower quadrant. No distention. CBC showed white count of 15.2 with neutrophils of 70. Hemoglobin 14.9, platelet 227, CMP within normal limits except for sodium of 134, glucose 107, total bili 1.5, AST and ALT 5 5/277, alk phos 122, troponin negative. Lipase 170. Covid rapid test negative. Ethanol 64. Chest x-ray with generalized hyperinflation, no acute findings. CT of abdomen pelvis without contrast demonstrated severe fatty liver, mild hepatomegaly, normal gallbladder, exophytic isodense nodule on the lower pole of the right kidney, mild bilateral fatty groin hernia. Appendix considered normal. Ultrasound of gallbladder demonstrated partially distended gallbladder with a positive sonographic Kennedy sign, no gallstones. Also identified mild perihepatic ascites. In ER patient was given IV Zofran, morphine 4 mg x 2 IV, Ativan 1 mg IV x1. Primary Diagnosis/es: Acute cholecystitis Elevated LFTs Secondary Diagnosis/es: Anxiety depression Hyperlipidemia Chronic tobacco use Chronic alcohol abuse SANA Hypothyroidism COPD with emphysema Chronic back pain PTSD Chronic anemia unknown etiology Gastroesophageal reflux disease Pulmonary embolus Consultants: Surgery: Dr. Gaye Gordon testing done: ----- -Labwork: See above 05/13/2020 WBC 8.9, hemoglobin 11.4, hematocrit 36.8, elevated indices, RDW of 51.0, platelet count 171, absolute neutrophil count elevated at 7.8. Electrolytes all within normal limits except anion gap of 2, BUN of 2, creatinine 0.68 with estimated GFR of 97. Glucose 148, calcium 8.2. Bilirubin normal, AST 162, ALT 139, alk phosphatase 81 normal, total protein and albumin low 6.3, 2.1 respectively ----- -Imaging: As above 05/12/2020 hepatobiliary scan nuclear medicine: No scintigraphic evidence of cholecystitis or biliary obstruction ----- -Cardiac: ----- -Other: ----- Procedures/ Surgery: Surgery: Laparoscopic cholecystectomy with surgical findings of thickened gallbladder wall with areas of gangrene, enlarged liver with fatty infiltration ascites Hospital course: As above patient was admitted, IV fluid, pain management, taken to surgery. Patient had successful recovery and discharged in a stable condition. Instructions were to return to activity but no driving while taking narcotic medication Medication Reconciliation: Completed Patient was given oxycodone 5 mg every 12 hours #10 documented as of this encounter (statuses as of 05/21/2022) [facility]11-13-2021 History of Past illness Narrative* Problem Noted Date Resolved Date Encounter for support and coordination of transi tion of care 05/02/2021 07/23/2021 Overview: Hospital discharge summary: Date of admission 05/01/2021 Date of discharge: Facility: [facility] 05/01/2021 presented to the emergency room with acute alcohol intoxication, initial alcohol level 7-8. Acknowledges over the last 5 months drinking 15 packs a day at 8% alcohol (nataidan samaniego). Vital signs 96.6 F-78-18-111/73-98%. Appearance was no acute distress. WBC 7.9-Hgb 13.8-HCT 39.7-PLT 306. NA 130 2L-K3.7-CL 90 6L-CO2 26.0-BUN 20.5H- CRE 0.93-GLU 111 Admitted from ER to detox unit Active problem list: 1. Alcohol dependence: Started on phenobarbital, gabapentin as needed dicyclomine as needed, Vistaril as needed, Imodium as needed, trazodone as needed, Zofran as needed, scheduled thiamine and scheduled folic acid. 2. Tobacco abuse: Nicotine patch prescribed, tobacco withheld. 3. Marijuana abuse: Counseled 4. Anxiety depression, PTSD: Continue home medications 5. COPD with home oxygen use: Stable, continue supplements duration O2 with continuous pulse oximetry per patient. 6. Hyponatremia chronic: Stable 7 DVT risk low: Encourage ambulation. Mild protein-calorie malnutrition 08/26/2020 11/12/2021 Encounter for support and coordination of transi tion of care 05/15/2020 05/02/2021 Overview: HOSPITAL/ER FOLLOW UP Which facility: [facility] Dates of visit: 05/10-05/13/2020 Preadmission evaluation: ER with right-sided abdominal pain over 2-1/2 hours, 10 out of 10. Worse with coughing. States she vomited 20 times the day before, with episodes of diarrhea over the past 2 days. Had used Imodium which improved diarrhea. No known exposures to Covid. Also identified chest pain which started approximately 2:00 that afternoon. Subjective fever and chills, chronic cough that is unchanged. Patient was afebrile with temp of 99.4 Fahrenheit, heart rate of 95, blood pressure 147/92. O2 saturation 94% but patient was started on O2 at 2 L per nasal cannula abdominal exam with severe tenderness over epigastric and right upper quadrant and right lower quadrant. No distention. CBC showed white count of 15.2 with neutrophils of 70. Hemoglobin 14.9, platelet 227, CMP within normal limits except for sodium of 134, glucose 107, total bili 1.5, AST and ALT 5 5/277, alk phos 122, troponin negative. Lipase 170. Covid rapid test negative. Ethanol 64. Chest x-ray with generalized hyperinflation, no acute findings. CT of abdomen pelvis without contrast demonstrated severe fatty liver, mild hepatomegaly, normal gallbladder, exophytic isodense nodule on the lower pole of the right kidney, mild bilateral fatty groin hernia. Appendix considered normal. Ultrasound of gallbladder demonstrated partially distended gallbladder with a positive sonographic Kennedy sign, no gallstones. Also identified mild perihepatic ascites. In ER patient was given IV Zofran, morphine 4 mg x 2 IV, Ativan 1 mg IV x1. Primary Diagnosis/es: Acute cholecystitis Elevated LFTs Secondary Diagnosis/es: Anxiety depression Hyperlipidemia Chronic tobacco use Chronic alcohol abuse SANA Hypothyroidism COPD with emphysema Chronic back pain PTSD Chronic anemia unknown etiology Gastroesophageal reflux disease Pulmonary embolus Consultants: Surgery: Dr. Gaye Gordon testing done: ----- -Labwork: See above 05/13/2020 WBC 8.9, hemoglobin 11.4, hematocrit 36.8, elevated indices, RDW of 51.0, platelet count 171, absolute neutrophil count elevated at 7.8. Electrolytes all within normal limits except anion gap of 2, BUN of 2, creatinine 0.68 with estimated GFR of 97. Glucose 148, calcium 8.2. Bilirubin normal, AST 162, ALT 139, alk phosphatase 81 normal, total protein and albumin low 6.3, 2.1 respectively ----- -Imaging: As above 05/12/2020 hepatobiliary scan nuclear medicine: No scintigraphic evidence of cholecystitis or biliary obstruction ----- -Cardiac: ----- -Other: ----- Procedures/ Surgery: Surgery: Laparoscopic cholecystectomy with surgical findings of thickened gallbladder wall with areas of gangrene, enlarged liver with fatty infiltration ascites Hospital course: As above patient was admitted, IV fluid, pain management, taken to surgery. Patient had successful recovery and discharged in a stable condition. Instructions were to return to activity but no driving while taking narcotic medication Medication Reconciliation: Completed Patient was given oxycodone 5 mg every 12 hours #10 documented as of this encounter (statuses as of 05/25/2022) [facility]-13-[facility]21 History of Past illness Narrative* Problem Noted Date Resolved Date Encounter for support and coordination of transi tion of care 05/02/2021 07/23/2021 Overview: Hospital discharge summary: Date of admission 05/01/2021 Date of discharge: Facility: [facility] 05/01/2021 presented to the emergency room with acute alcohol intoxication, initial alcohol level 7-8. Acknowledges over the last 5 months drinking 15 packs a day at 8% alcohol (marcin samaniego). Vital signs 96.6 F-78-18-111/73-98%. Appearance was no acute distress. WBC 7.9-Hgb 13.8-HCT 39.7-PLT 306. NA 130 2L-K3.7-CL 90 6L-CO2 26.0-BUN 20.5H- CRE 0.93-GLU 111 Admitted from ER to detox unit Active problem list: 1. Alcohol dependence: Started on phenobarbital, gabapentin as needed dicyclomine as needed, Vistaril as needed, Imodium as needed, trazodone as needed, Zofran as needed, scheduled thiamine and scheduled folic acid. 2. Tobacco abuse: Nicotine patch prescribed, tobacco withheld. 3. Marijuana abuse: Counseled 4. Anxiety depression, PTSD: Continue home medications 5. COPD with home oxygen use: Stable, continue supplements duration O2 with continuous pulse oximetry per patient. 6. Hyponatremia chronic: Stable 7 DVT risk low: Encourage ambulation. Mild protein-calorie malnutrition 08/26/2020 11/12/2021 Encounter for support and coordination of transi tion of care 05/15/2020 05/02/2021 Overview: HOSPITAL/ER FOLLOW UP Which facility: [facility] Dates of visit: 05/10-05/13/2020 Preadmission evaluation: ER with right-sided abdominal pain over 2-1/2 hours, 10 out of 10. Worse with coughing. States she vomited 20 times the day before, with episodes of diarrhea over the past 2 days. Had used Imodium which improved diarrhea. No known exposures to Covid. Also identified chest pain which started approximately 2:00 that afternoon. Subjective fever and chills, chronic cough that is unchanged. Patient was afebrile with temp of 99.4 Fahrenheit, heart rate of 95, blood pressure 147/92. O2 saturation 94% but patient was started on O2 at 2 L per nasal cannula abdominal exam with severe tenderness over epigastric and right upper quadrant and right lower quadrant. No distention. CBC showed white count of 15.2 with neutrophils of 70. Hemoglobin 14.9, platelet 227, CMP within normal limits except for sodium of 134, glucose 107, total bili 1.5, AST and ALT 5 , alk phos 122, troponin negative. Lipase 170. Covid rapid test negative. Ethanol 64. Chest x-ray with generalized hyperinflation, no acute findings. CT of abdomen pelvis without contrast demonstrated severe fatty liver, mild hepatomegaly, normal gallbladder, exophytic isodense nodule on the lower pole of the right kidney, mild bilateral fatty groin hernia. Appendix considered normal. Ultrasound of gallbladder demonstrated partially distended gallbladder with a positive sonographic Kennedy sign, no gallstones. Also identified mild perihepatic ascites. In ER patient was given IV Zofran, morphine 4 mg x 2 IV, Ativan 1 mg IV x1. Primary Diagnosis/es: Acute cholecystitis Elevated LFTs Secondary Diagnosis/es: Anxiety depression Hyperlipidemia Chronic tobacco use Chronic alcohol abuse SANA Hypothyroidism COPD with emphysema Chronic back pain PTSD Chronic anemia unknown etiology Gastroesophageal reflux disease Pulmonary embolus Consultants: Surgery: Dr. Gaye Gordon testing done: ----- -Labwork: See above 05/13/2020 WBC 8.9, hemoglobin 11.4, hematocrit 36.8, elevated indices, RDW of 51.0, platelet count 171, absolute neutrophil count elevated at 7.8. Electrolytes all within normal limits except anion gap of 2, BUN of 2, creatinine 0.68 with estimated GFR of 97. Glucose 148, calcium 8.2. Bilirubin normal, AST 162, ALT 139, alk phosphatase 81 normal, total protein and albumin low 6.3, 2.1 respectively ----- -Imaging: As above 05/12/2020 hepatobiliary scan nuclear medicine: No scintigraphic evidence of cholecystitis or biliary obstruction ----- -Cardiac: ----- -Other: ----- Procedures/ Surgery: Surgery: Laparoscopic cholecystectomy with surgical findings of thickened gallbladder wall with areas of gangrene, enlarged liver with fatty infiltration ascites Hospital course: As above patient was admitted, IV fluid, pain management, taken to surgery. Patient had successful recovery and discharged in a stable condition. Instructions were to return to activity but no driving while taking narcotic medication Medication Reconciliation: Completed Patient was given oxycodone 5 mg every 12 hours #10 documented as of this encounter (statuses as of 05/27/2022) [facility]21 History of Past illness Narrative* Problem Noted Date Resolved Date Encounter for support and coordination of transi tion of care 05/02/2021 07/23/2021 Overview: Hospital discharge summary: Date of admission 05/01/2021 Date of discharge: Facility: [facility] 05/01/2021 presented to the emergency room with acute alcohol intoxication, initial alcohol level 7-8. Acknowledges over the last 5 months drinking 15 packs a day at 8% alcohol (nataidan samaniego). Vital signs 96.6 F-78-18-111/73-98%. Appearance was no acute distress. WBC 7.9-Hgb 13.8-HCT 39.7-PLT 306. NA 130 2L-K3.7-CL 90 6L-CO2 26.0-BUN 20.5H- CRE 0.93-GLU 111 Admitted from ER to detox unit Active problem list: 1. Alcohol dependence: Started on phenobarbital, gabapentin as needed dicyclomine as needed, Vistaril as needed, Imodium as needed, trazodone as needed, Zofran as needed, scheduled thiamine and scheduled folic acid. 2. Tobacco abuse: Nicotine patch prescribed, tobacco withheld. 3. Marijuana abuse: Counseled 4. Anxiety depression, PTSD: Continue home medications 5. COPD with home oxygen use: Stable, continue supplements duration O2 with continuous pulse oximetry per patient. 6. Hyponatremia chronic: Stable 7 DVT risk low: Encourage ambulation. Mild protein-calorie malnutrition 08/26/2020 11/12/2021 Encounter for support and coordination of transi tion of care 05/15/2020 05/02/2021 Overview: HOSPITAL/ER FOLLOW UP Which facility: [facility] Dates of visit: 05/10-05/13/2020 Preadmission evaluation: ER with right-sided abdominal pain over 2-1/2 hours, 10 out of 10. Worse with coughing. States she vomited 20 times the day before, with episodes of diarrhea over the past 2 days. Had used Imodium which improved diarrhea. No known exposures to Covid. Also identified chest pain which started approximately 2:00 that afternoon. Subjective fever and chills, chronic cough that is unchanged. Patient was afebrile with temp of 99.4 Fahrenheit, heart rate of 95, blood pressure 147/92. O2 saturation 94% but patient was started on O2 at 2 L per nasal cannula abdominal exam with severe tenderness over epigastric and right upper quadrant and right lower quadrant. No distention. CBC showed white count of 15.2 with neutrophils of 70. Hemoglobin 14.9, platelet 227, CMP within normal limits except for sodium of 134, glucose 107, total bili 1.5, AST and ALT 5 5/277, alk phos 122, troponin negative. Lipase 170. Covid rapid test negative. Ethanol 64. Chest x-ray with generalized hyperinflation, no acute findings. CT of abdomen pelvis without contrast demonstrated severe fatty liver, mild hepatomegaly, normal gallbladder, exophytic isodense nodule on the lower pole of the right kidney, mild bilateral fatty groin hernia. Appendix considered normal. Ultrasound of gallbladder demonstrated partially distended gallbladder with a positive sonographic Kennedy sign, no gallstones. Also identified mild perihepatic ascites. In ER patient was given IV Zofran, morphine 4 mg x 2 IV, Ativan 1 mg IV x1. Primary Diagnosis/es: Acute cholecystitis Elevated LFTs Secondary Diagnosis/es: Anxiety depression Hyperlipidemia Chronic tobacco use Chronic alcohol abuse SANA Hypothyroidism COPD with emphysema Chronic back pain PTSD Chronic anemia unknown etiology Gastroesophageal reflux disease Pulmonary embolus Consultants: Surgery: Dr. Gaye Gordon testing done: ----- -Labwork: See above 05/13/2020 WBC 8.9, hemoglobin 11.4, hematocrit 36.8, elevated indices, RDW of 51.0, platelet count 171, absolute neutrophil count elevated at 7.8. Electrolytes all within normal limits except anion gap of 2, BUN of 2, creatinine 0.68 with estimated GFR of 97. Glucose 148, calcium 8.2. Bilirubin normal, AST 162, ALT 139, alk phosphatase 81 normal, total protein and albumin low 6.3, 2.1 respectively ----- -Imaging: As above 05/12/2020 hepatobiliary scan nuclear medicine: No scintigraphic evidence of cholecystitis or biliary obstruction ----- -Cardiac: ----- -Other: ----- Procedures/ Surgery: Surgery: Laparoscopic cholecystectomy with surgical findings of thickened gallbladder wall with areas of gangrene, enlarged liver with fatty infiltration ascites Hospital course: As above patient was admitted, IV fluid, pain management, taken to surgery. Patient had successful recovery and discharged in a stable condition. Instructions were to return to activity but no driving while taking narcotic medication Medication Reconciliation: Completed Patient was given oxycodone 5 mg every 12 hours #10 documented as of this encounter (statuses as of 05/31/2022) [facility]11-13-2021 History of Past illness Narrative* Problem Noted Date Resolved Date Encounter for support and coordination of transi tion of care 05/02/2021 07/23/2021 Overview: Hospital discharge summary: Date of admission 05/01/2021 Date of discharge: Facility: [facility] 05/01/2021 presented to the emergency room with acute alcohol intoxication, initial alcohol level 7-8. Acknowledges over the last 5 months drinking 15 packs a day at 8% alcohol (nataidan samaniego). Vital signs 96.6 [id number]-[id number]/73-98%. Appearance was no acute distress. WBC 7.9-Hgb 13.8-HCT 39.7-PLT 306. NA 130 2L-K3.7-CL 90 6L-CO2 26.0-BUN 20.5H- CRE 0.93-GLU 111 Admitted from ER to detox unit Active problem list: 1. Alcohol dependence: Started on phenobarbital, gabapentin as needed dicyclomine as needed, Vistaril as needed, Imodium as needed, trazodone as needed, Zofran as needed, scheduled thiamine and scheduled folic acid. 2. Tobacco abuse: Nicotine patch prescribed, tobacco withheld. 3. Marijuana abuse: Counseled 4. Anxiety depression, PTSD: Continue home medications 5. COPD with home oxygen use: Stable, continue supplements duration O2 with continuous pulse oximetry per patient. 6. Hyponatremia chronic: Stable 7 DVT risk low: Encourage ambulation. Mild protein-calorie malnutrition 08/26/2020 11/12/2021 Encounter for support and coordination of transi tion of care 05/15/2020 05/02/2021 Overview: HOSPITAL/ER FOLLOW UP Which facility: [facility] Dates of visit: 05/10-05/13/2020 Preadmission evaluation: ER with right-sided abdominal pain over 2-1/2 hours, 10 out of 10. Worse with coughing. States she vomited 20 times the day before, with episodes of diarrhea over the past 2 days. Had used Imodium which improved diarrhea. No known exposures to Covid. Also identified chest pain which started approximately 2:00 that afternoon. Subjective fever and chills, chronic cough that is unchanged. Patient was afebrile with temp of 99.4 Fahrenheit, heart rate of 95, blood pressure 147/92. O2 saturation 94% but patient was started on O2 at 2 L per nasal cannula abdominal exam with severe tenderness over epigastric and right upper quadrant and right lower quadrant. No distention. CBC showed white count of 15.2 with neutrophils of 70. Hemoglobin 14.9, platelet 227, CMP within normal limits except for sodium of 134, glucose 107, total bili 1.5, AST and ALT 5 5/277, alk phos 122, troponin negative. Lipase 170. Covid rapid test negative. Ethanol 64. Chest x-ray with generalized hyperinflation, no acute findings. CT of abdomen pelvis without contrast demonstrated severe fatty liver, mild hepatomegaly, normal gallbladder, exophytic isodense nodule on the lower pole of the right kidney, mild bilateral fatty groin hernia. Appendix considered normal. Ultrasound of gallbladder demonstrated partially distended gallbladder with a positive sonographic Kennedy sign, no gallstones. Also identified mild perihepatic ascites. In ER patient was given IV Zofran, morphine 4 mg x 2 IV, Ativan 1 mg IV x1. Primary Diagnosis/es: Acute cholecystitis Elevated LFTs Secondary Diagnosis/es: Anxiety depression Hyperlipidemia Chronic tobacco use Chronic alcohol abuse SANA Hypothyroidism COPD with emphysema Chronic back pain PTSD Chronic anemia unknown etiology Gastroesophageal reflux disease Pulmonary embolus Consultants: Surgery: Dr. Gyae Gordon testing done: ----- -Labwork: See above 05/13/2020 WBC 8.9, hemoglobin 11.4, hematocrit 36.8, elevated indices, RDW of 51.0, platelet count 171, absolute neutrophil count elevated at 7.8. Electrolytes all within normal limits except anion gap of 2, BUN of 2, creatinine 0.68 with estimated GFR of 97. Glucose 148, calcium 8.2. Bilirubin normal, AST 162, ALT 139, alk phosphatase 81 normal, total protein and albumin low 6.3, 2.1 respectively ----- -Imaging: As above 05/12/2020 hepatobiliary scan nuclear medicine: No scintigraphic evidence of cholecystitis or biliary obstruction ----- -Cardiac: ----- -Other: ----- Procedures/ Surgery: Surgery: Laparoscopic cholecystectomy with surgical findings of thickened gallbladder wall with areas of gangrene, enlarged liver with fatty infiltration ascites Hospital course: As above patient was admitted, IV fluid, pain management, taken to surgery. Patient had successful recovery and discharged in a stable condition. Instructions were to return to activity but no driving while taking narcotic medication Medication Reconciliation: Completed Patient was given oxycodone 5 mg every 12 hours #10 documented as of this encounter (statuses as of 06/03/2022) [facility]11-13-2021 History of Past illness Narrative* Problem Noted Date Resolved Date Encounter for support and coordination of transi on of care 05/02/2021 07/23/2021 Overview: Hospital discharge summary: Date of admission 05/01/2021 Date of discharge: Facility: [facility] 05/01/2021 presented to the emergency room with acute alcohol intoxication, initial alcohol level 7-8. Acknowledges over the last 5 months drinking 15 packs a day at 8% alcohol (marcin samaniego). Vital signs 96.6 [id number]/73-98%. Appearance was no acute distress. WBC 7.9-Hgb 13.8-HCT 39.7-PLT 306. NA 130 2L-K3.7-CL 90 6L-CO2 26.0-BUN 20.5H- CRE 0.93-GLU 111 Admitted from ER to detox unit Active problem list: 1. Alcohol dependence: Started on phenobarbital, gabapentin as needed dicyclomine as needed, Vistaril as needed, Imodium as needed, trazodone as needed, Zofran as needed, scheduled thiamine and scheduled folic acid. 2. Tobacco abuse: Nicotine patch prescribed, tobacco withheld. 3. Marijuana abuse: Counseled 4. Anxiety depression, PTSD: Continue home medications 5. COPD with home oxygen use: Stable, continue supplements duration O2 with continuous pulse oximetry per patient. 6. Hyponatremia chronic: Stable 7 DVT risk low: Encourage ambulation. Mild protein-calorie malnutrition 08/26/2020 11/12/2021 Encounter for support and coordination of transi tion of care 05/15/2020 05/02/2021 Overview: HOSPITAL/ER FOLLOW UP Which facility: [facility] Dates of visit: 05/10-05/13/2020 Preadmission evaluation: ER with right-sided abdominal pain over 2-1/2 hours, 10 out of 10. Worse with coughing. States she vomited 20 times the day before, with episodes of diarrhea over the past 2 days. Had used Imodium which improved diarrhea. No known exposures to Covid. Also identified chest pain which started approximately 2:00 that afternoon. Subjective fever and chills, chronic cough that is unchanged. Patient was afebrile with temp of 99.4 Fahrenheit, heart rate of 95, blood pressure 147/92. O2 saturation 94% but patient was started on O2 at 2 L per nasal cannula abdominal exam with severe tenderness over epigastric and right upper quadrant and right lower quadrant. No distention. CBC showed white count of 15.2 with neutrophils of 70. Hemoglobin 14.9, platelet 227, CMP within normal limits except for sodium of 134, glucose 107, total bili 1.5, AST and ALT 5 5/277, alk phos 122, troponin negative. Lipase 170. Covid rapid test negative. Ethanol 64. Chest x-ray with generalized hyperinflation, no acute findings. CT of abdomen pelvis without contrast demonstrated severe fatty liver, mild hepatomegaly, normal gallbladder, exophytic isodense nodule on the lower pole of the right kidney, mild bilateral fatty groin hernia. Appendix considered normal. Ultrasound of gallbladder demonstrated partially distended gallbladder with a positive sonographic Kennedy sign, no gallstones. Also identified mild perihepatic ascites. In ER patient was given IV Zofran, morphine 4 mg x 2 IV, Ativan 1 mg IV x1. Primary Diagnosis/es: Acute cholecystitis Elevated LFTs Secondary Diagnosis/es: Anxiety depression Hyperlipidemia Chronic tobacco use Chronic alcohol abuse SANA Hypothyroidism COPD with emphysema Chronic back pain PTSD Chronic anemia unknown etiology Gastroesophageal reflux disease Pulmonary embolus Consultants: Surgery: Dr. Gaye Gordon testing done: ----- -Labwork: See above 05/13/2020 WBC 8.9, hemoglobin 11.4, hematocrit 36.8, elevated indices, RDW of 51.0, platelet count 171, absolute neutrophil count elevated at 7.8. Electrolytes all within normal limits except anion gap of 2, BUN of 2, creatinine 0.68 with estimated GFR of 97. Glucose 148, calcium 8.2. Bilirubin normal, AST 162, ALT 139, alk phosphatase 81 normal, total protein and albumin low 6.3, 2.1 respectively ----- -Imaging: As above 05/12/2020 hepatobiliary scan nuclear medicine: No scintigraphic evidence of cholecystitis or biliary obstruction ----- -Cardiac: ----- -Other: ----- Procedures/ Surgery: Surgery: Laparoscopic cholecystectomy with surgical findings of thickened gallbladder wall with areas of gangrene, enlarged liver with fatty infiltration ascites Hospital course: As above patient was admitted, IV fluid, pain management, taken to surgery. Patient had successful recovery and discharged in a stable condition. Instructions were to return to activity but no driving while taking narcotic medication Medication Reconciliation: Completed Patient was given oxycodone 5 mg every 12 hours #10 documented as of this encounter (statuses as of 06/03/2022) [facility]11-13-2021 History of Past illness Narrative* Problem Noted Date Resolved Date Encounter for support and coordination of transi tion of care 05/02/2021 07/23/2021 Overview: Hospital discharge summary: Date of admission 05/01/2021 Date of discharge: Facility: [facility] 05/01/2021 presented to the emergency room with acute alcohol intoxication, initial alcohol level 7-8. Acknowledges over the last 5 months drinking 15 packs a day at 8% alcohol (marcin samaniego). Vital signs 96.6 [id number]-78-18-111/73-98%. Appearance was no acute distress. WBC 7.9-Hgb 13.8-HCT 39.7-PLT 306. NA 130 2L-K3.7-CL 90 6L-CO2 26.0-BUN 20.5H- CRE 0.93-GLU 111 Admitted from ER to detox unit Active problem list: 1. Alcohol dependence: Started on phenobarbital, gabapentin as needed dicyclomine as needed, Vistaril as needed, Imodium as needed, trazodone as needed, Zofran as needed, scheduled thiamine and scheduled folic acid. 2. Tobacco abuse: Nicotine patch prescribed, tobacco withheld. 3. Marijuana abuse: Counseled 4. Anxiety depression, PTSD: Continue home medications 5. COPD with home oxygen use: Stable, continue supplements duration O2 with continuous pulse oximetry per patient. 6. Hyponatremia chronic: Stable 7 DVT risk low: Encourage ambulation. Mild protein-calorie malnutrition 08/26/2020 11/12/2021 Encounter for support and coordination of transi tion of care 05/15/2020 05/02/2021 Overview: HOSPITAL/ER FOLLOW UP Which facility: [facility] Dates of visit: 05/10-05/13/2020 Preadmission evaluation: ER with right-sided abdominal pain over 2-1/2 hours, 10 out of 10. Worse with coughing. States she vomited 20 times the day before, with episodes of diarrhea over the past 2 days. Had used Imodium which improved diarrhea. No known exposures to Covid. Also identified chest pain which started approximately 2:00 that afternoon. Subjective fever and chills, chronic cough that is unchanged. Patient was afebrile with temp of 99.4 Fahrenheit, heart rate of 95, blood pressure 147/92. O2 saturation 94% but patient was started on O2 at 2 L per nasal cannula abdominal exam with severe tenderness over epigastric and right upper quadrant and right lower quadrant. No distention. CBC showed white count of 15.2 with neutrophils of 70. Hemoglobin 14.9, platelet 227, CMP within normal limits except for sodium of 134, glucose 107, total bili 1.5, AST and ALT 5 5/277, alk phos 122, troponin negative. Lipase 170. Covid rapid test negative. Ethanol 64. Chest x-ray with generalized hyperinflation, no acute findings. CT of abdomen pelvis without contrast demonstrated severe fatty liver, mild hepatomegaly, normal gallbladder, exophytic isodense nodule on the lower pole of the right kidney, mild bilateral fatty groin hernia. Appendix considered normal. Ultrasound of gallbladder demonstrated partially distended gallbladder with a positive sonographic Kennedy sign, no gallstones. Also identified mild perihepatic ascites. In ER patient was given IV Zofran, morphine 4 mg x 2 IV, Ativan 1 mg IV x1. Primary Diagnosis/es: Acute cholecystitis Elevated LFTs Secondary Diagnosis/es: Anxiety depression Hyperlipidemia Chronic tobacco use Chronic alcohol abuse SANA Hypothyroidism COPD with emphysema Chronic back pain PTSD Chronic anemia unknown etiology Gastroesophageal reflux disease Pulmonary embolus Consultants: Surgery: Dr. Gaye Gordon testing done: ----- -Labwork: See above 05/13/2020 WBC 8.9, hemoglobin 11.4, hematocrit 36.8, elevated indices, RDW of 51.0, platelet count 171, absolute neutrophil count elevated at 7.8. Electrolytes all within normal limits except anion gap of 2, BUN of 2, creatinine 0.68 with estimated GFR of 97. Glucose 148, calcium 8.2. Bilirubin normal, AST 162, ALT 139, alk phosphatase 81 normal, total protein and albumin low 6.3, 2.1 respectively ----- -Imaging: As above 05/12/2020 hepatobiliary scan nuclear medicine: No scintigraphic evidence of cholecystitis or biliary obstruction ----- -Cardiac: ----- -Other: ----- Procedures/ Surgery: Surgery: Laparoscopic cholecystectomy with surgical findings of thickened gallbladder wall with areas of gangrene, enlarged liver with fatty infiltration ascites Hospital course: As above patient was admitted, IV fluid, pain management, taken to surgery. Patient had successful recovery and discharged in a stable condition. Instructions were to return to activity but no driving while taking narcotic medication Medication Reconciliation: Completed Patient was given oxycodone 5 mg every 12 hours #10 documented as of this encounter (statuses as of 06/13/2022) [facility]11-13-2021 History of Past illness Narrative* Problem Noted Date Resolved Date Encounter for support and coordination of transi tion of care 05/02/2021 07/23/2021 Overview: Hospital discharge summary: Date of admission 05/01/2021 Date of discharge: Facility: [facility] 05/01/2021 presented to the emergency room with acute alcohol intoxication, initial alcohol level 7-8. Acknowledges over the last 5 months drinking 15 packs a day at 8% alcohol (marcin samaniego). Vital signs 96.6 [id number]-78-18-111/73-98%. Appearance was no acute distress. WBC 7.9-Hgb 13.8-HCT 39.7-PLT 306. NA 130 2L-K3.7-CL 90 6L-CO2 26.0-BUN 20.5H- CRE 0.93-GLU 111 Admitted from ER to detox unit Active problem list: 1. Alcohol dependence: Started on phenobarbital, gabapentin as needed dicyclomine as needed, Vistaril as needed, Imodium as needed, trazodone as needed, Zofran as needed, scheduled thiamine and scheduled folic acid. 2. Tobacco abuse: Nicotine patch prescribed, tobacco withheld. 3. Marijuana abuse: Counseled 4. Anxiety depression, PTSD: Continue home medications 5. COPD with home oxygen use: Stable, continue supplements duration O2 with continuous pulse oximetry per patient. 6. Hyponatremia chronic: Stable 7 DVT risk low: Encourage ambulation. Mild protein-calorie malnutrition 08/26/2020 11/12/2021 Encounter for support and coordination of transi tion of care 05/15/2020 05/02/2021 Overview: HOSPITAL/ER FOLLOW UP Which facility: [facility] Dates of visit: 05/10-05/13/2020 Preadmission evaluation: ER with right-sided abdominal pain over 2-1/2 hours, 10 out of 10. Worse with coughing. States she vomited 20 times the day before, with episodes of diarrhea over the past 2 days. Had used Imodium which improved diarrhea. No known exposures to Covid. Also identified chest pain which started approximately 2:00 that afternoon. Subjective fever and chills, chronic cough that is unchanged. Patient was afebrile with temp of 99.4 Fahrenheit, heart rate of 95, blood pressure 147/92. O2 saturation 94% but patient was started on O2 at 2 L per nasal cannula abdominal exam with severe tenderness over epigastric and right upper quadrant and right lower quadrant. No distention. CBC showed white count of 15.2 with neutrophils of 70. Hemoglobin 14.9, platelet 227, CMP within normal limits except for sodium of 134, glucose 107, total bili 1.5, AST and ALT 5 5/277, alk phos 122, troponin negative. Lipase 170. Covid rapid test negative. Ethanol 64. Chest x-ray with generalized hyperinflation, no acute findings. CT of abdomen pelvis without contrast demonstrated severe fatty liver, mild hepatomegaly, normal gallbladder, exophytic isodense nodule on the lower pole of the right kidney, mild bilateral fatty groin hernia. Appendix considered normal. Ultrasound of gallbladder demonstrated partially distended gallbladder with a positive sonographic Kennedy sign, no gallstones. Also identified mild perihepatic ascites. In ER patient was given IV Zofran, morphine 4 mg x 2 IV, Ativan 1 mg IV x1. Primary Diagnosis/es: Acute cholecystitis Elevated LFTs Secondary Diagnosis/es: Anxiety depression Hyperlipidemia Chronic tobacco use Chronic alcohol abuse SANA Hypothyroidism COPD with emphysema Chronic back pain PTSD Chronic anemia unknown etiology Gastroesophageal reflux disease Pulmonary embolus Consultants: Surgery: Dr. Gaye Gordon testing done: ----- -Labwork: See above 05/13/2020 WBC 8.9, hemoglobin 11.4, hematocrit 36.8, elevated indices, RDW of 51.0, platelet count 171, absolute neutrophil count elevated at 7.8. Electrolytes all within normal limits except anion gap of 2, BUN of 2, creatinine 0.68 with estimated GFR of 97. Glucose 148, calcium 8.2. Bilirubin normal, AST 162, ALT 139, alk phosphatase 81 normal, total protein and albumin low 6.3, 2.1 respectively ----- -Imaging: As above 05/12/2020 hepatobiliary scan nuclear medicine: No scintigraphic evidence of cholecystitis or biliary obstruction ----- -Cardiac: ----- -Other: ----- Procedures/ Surgery: Surgery: Laparoscopic cholecystectomy with surgical findings of thickened gallbladder wall with areas of gangrene, enlarged liver with fatty infiltration ascites Hospital course: As above patient was admitted, IV fluid, pain management, taken to surgery. Patient had successful recovery and discharged in a stable condition. Instructions were to return to activity but no driving while taking narcotic medication Medication Reconciliation: Completed Patient was given oxycodone 5 mg every 12 hours #10 documented as of this encounter (statuses as of 06/13/2022) [facility]11-13-2021 History of Past illness Narrative* Problem Noted Date Resolved Date Encounter for support and coordination of transi tion of care 05/02/2021 07/23/2021 Overview: Hospital discharge summary: Date of admission 05/01/2021 Date of discharge: Facility: [facility] 05/01/2021 presented to the emergency room with acute alcohol intoxication, initial alcohol level 7-8. Acknowledges over the last 5 months drinking 15 packs a day at 8% alcohol (marcin samaniego). Vital signs 96.6 F-78-18-111/73-98%. Appearance was no acute distress. WBC 7.9-Hgb 13.8-HCT 39.7-PLT 306. NA 130 2L-K3.7-CL 90 6L-CO2 26.0-BUN 20.5H- CRE 0.93-GLU 111 Admitted from ER to detox unit Active problem list: 1. Alcohol dependence: Started on phenobarbital, gabapentin as needed dicyclomine as needed, Vistaril as needed, Imodium as needed, trazodone as needed, Zofran as needed, scheduled thiamine and scheduled folic acid. 2. Tobacco abuse: Nicotine patch prescribed, tobacco withheld. 3. Marijuana abuse: Counseled 4. Anxiety depression, PTSD: Continue home medications 5. COPD with home oxygen use: Stable, continue supplements duration O2 with continuous pulse oximetry per patient. 6. Hyponatremia chronic: Stable 7 DVT risk low: Encourage ambulation. Mild protein-calorie malnutrition 08/26/2020 11/12/2021 Encounter for support and coordination of transi tion of care 05/15/2020 05/02/2021 Overview: HOSPITAL/ER FOLLOW UP Which facility: [facility] Dates of visit: 05/10-05/13/2020 Preadmission evaluation: ER with right-sided abdominal pain over 2-1/2 hours, 10 out of 10. Worse with coughing. States she vomited 20 times the day before, with episodes of diarrhea over the past 2 days. Had used Imodium which improved diarrhea. No known exposures to Covid. Also identified chest pain which started approximately 2:00 that afternoon. Subjective fever and chills, chronic cough that is unchanged. Patient was afebrile with temp of 99.4 Fahrenheit, heart rate of 95, blood pressure 147/92. O2 saturation 94% but patient was started on O2 at 2 L per nasal cannula abdominal exam with severe tenderness over epigastric and right upper quadrant and right lower quadrant. No distention. CBC showed white count of 15.2 with neutrophils of 70. Hemoglobin 14.9, platelet 227, CMP within normal limits except for sodium of 134, glucose 107, total bili 1.5, AST and ALT 5 5/277, alk phos 122, troponin negative. Lipase 170. Covid rapid test negative. Ethanol 64. Chest x-ray with generalized hyperinflation, no acute findings. CT of abdomen pelvis without contrast demonstrated severe fatty liver, mild hepatomegaly, normal gallbladder, exophytic isodense nodule on the lower pole of the right kidney, mild bilateral fatty groin hernia. Appendix considered normal. Ultrasound of gallbladder demonstrated partially distended gallbladder with a positive sonographic Kennedy sign, no gallstones. Also identified mild perihepatic ascites. In ER patient was given IV Zofran, morphine 4 mg x 2 IV, Ativan 1 mg IV x1. Primary Diagnosis/es: Acute cholecystitis Elevated LFTs Secondary Diagnosis/es: Anxiety depression Hyperlipidemia Chronic tobacco use Chronic alcohol abuse SANA Hypothyroidism COPD with emphysema Chronic back pain PTSD Chronic anemia unknown etiology Gastroesophageal reflux disease Pulmonary embolus Consultants: Surgery: Dr. Gaye Gordon testing done: ----- -Labwork: See above 05/13/2020 WBC 8.9, hemoglobin 11.4, hematocrit 36.8, elevated indices, RDW of 51.0, platelet count 171, absolute neutrophil count elevated at 7.8. Electrolytes all within normal limits except anion gap of 2, BUN of 2, creatinine 0.68 with estimated GFR of 97. Glucose 148, calcium 8.2. Bilirubin normal, AST 162, ALT 139, alk phosphatase 81 normal, total protein and albumin low 6.3, 2.1 respectively ----- -Imaging: As above 05/12/2020 hepatobiliary scan nuclear medicine: No scintigraphic evidence of cholecystitis or biliary obstruction ----- -Cardiac: ----- -Other: ----- Procedures/ Surgery: Surgery: Laparoscopic cholecystectomy with surgical findings of thickened gallbladder wall with areas of gangrene, enlarged liver with fatty infiltration ascites Hospital course: As above patient was admitted, IV fluid, pain management, taken to surgery. Patient had successful recovery and discharged in a stable condition. Instructions were to return to activity but no driving while taking narcotic medication Medication Reconciliation: Completed Patient was given oxycodone 5 mg every 12 hours #10 documented as of this encounter (statuses as of 06/22/2022) [facility]11-13-2021 History of Past illness Narrative* Problem Noted Date Resolved Date Encounter for support and coordination of transi tion of care 05/02/2021 07/23/2021 Overview: Hospital discharge summary: Date of admission 05/01/2021 Date of discharge: Facility: [facility] 05/01/2021 presented to the emergency room with acute alcohol intoxication, initial alcohol level 7-8. Acknowledges over the last 5 months drinking 15 packs a day at 8% alcohol (marcin samaniego). Vital signs 96.6 [id number]-78-18-111/73-98%. Appearance was no acute distress. WBC 7.9-Hgb 13.8-HCT 39.7-PLT 306. NA 130 2L-K3.7-CL 90 6L-CO2 26.0-BUN 20.5H- CRE 0.93-GLU 111 Admitted from ER to detox unit Active problem list: 1. Alcohol dependence: Started on phenobarbital, gabapentin as needed dicyclomine as needed, Vistaril as needed, Imodium as needed, trazodone as needed, Zofran as needed, scheduled thiamine and scheduled folic acid. 2. Tobacco abuse: Nicotine patch prescribed, tobacco withheld. 3. Marijuana abuse: Counseled 4. Anxiety depression, PTSD: Continue home medications 5. COPD with home oxygen use: Stable, continue supplements duration O2 with continuous pulse oximetry per patient. 6. Hyponatremia chronic: Stable 7 DVT risk low: Encourage ambulation. Mild protein-calorie malnutrition 08/26/2020 11/12/2021 Encounter for support and coordination of transi tion of care 05/15/2020 05/02/2021 Overview: HOSPITAL/ER FOLLOW UP Which facility: [facility] Dates of visit: 05/10-05/13/2020 Preadmission evaluation: ER with right-sided abdominal pain over 2-1/2 hours, 10 out of 10. Worse with coughing. States she vomited 20 times the day before, with episodes of diarrhea over the past 2 days. Had used Imodium which improved diarrhea. No known exposures to Covid. Also identified chest pain which started approximately 2:00 that afternoon. Subjective fever and chills, chronic cough that is unchanged. Patient was afebrile with temp of 99.4 Fahrenheit, heart rate of 95, blood pressure 147/92. O2 saturation 94% but patient was started on O2 at 2 L per nasal cannula abdominal exam with severe tenderness over epigastric and right upper quadrant and right lower quadrant. No distention. CBC showed white count of 15.2 with neutrophils of 70. Hemoglobin 14.9, platelet 227, CMP within normal limits except for sodium of 134, glucose 107, total bili 1.5, AST and ALT 5 5/277, alk phos 122, troponin negative. Lipase 170. Covid rapid test negative. Ethanol 64. Chest x-ray with generalized hyperinflation, no acute findings. CT of abdomen pelvis without contrast demonstrated severe fatty liver, mild hepatomegaly, normal gallbladder, exophytic isodense nodule on the lower pole of the right kidney, mild bilateral fatty groin hernia. Appendix considered normal. Ultrasound of gallbladder demonstrated partially distended gallbladder with a positive sonographic Kennedy sign, no gallstones. Also identified mild perihepatic ascites. In ER patient was given IV Zofran, morphine 4 mg x 2 IV, Ativan 1 mg IV x1. Primary Diagnosis/es: Acute cholecystitis Elevated LFTs Secondary Diagnosis/es: Anxiety depression Hyperlipidemia Chronic tobacco use Chronic alcohol abuse SANA Hypothyroidism COPD with emphysema Chronic back pain PTSD Chronic anemia unknown etiology Gastroesophageal reflux disease Pulmonary embolus Consultants: Surgery: Dr. Gaye Gordon testing done: ----- -Labwork: See above 05/13/2020 WBC 8.9, hemoglobin 11.4, hematocrit 36.8, elevated indices, RDW of 51.0, platelet count 171, absolute neutrophil count elevated at 7.8. Electrolytes all within normal limits except anion gap of 2, BUN of 2, creatinine 0.68 with estimated GFR of 97. Glucose 148, calcium 8.2. Bilirubin normal, AST 162, ALT 139, alk phosphatase 81 normal, total protein and albumin low 6.3, 2.1 respectively ----- -Imaging: As above 05/12/2020 hepatobiliary scan nuclear medicine: No scintigraphic evidence of cholecystitis or biliary obstruction ----- -Cardiac: ----- -Other: ----- Procedures/ Surgery: Surgery: Laparoscopic cholecystectomy with surgical findings of thickened gallbladder wall with areas of gangrene, enlarged liver with fatty infiltration ascites Hospital course: As above patient was admitted, IV fluid, pain management, taken to surgery. Patient had successful recovery and discharged in a stable condition. Instructions were to return to activity but no driving while taking narcotic medication Medication Reconciliation: Completed Patient was given oxycodone 5 mg every 12 hours #10 documented as of this encounter (statuses as of 06/23/2022) [facility]11-13-2021 History of Past illness Narrative* Problem Noted Date Resolved Date Encounter for support and coordination of transi tion of care 05/02/2021 07/23/2021 Overview: Hospital discharge summary: Date of admission 05/01/2021 Date of discharge: Facility: [facility] 05/01/2021 presented to the emergency room with acute alcohol intoxication, initial alcohol level 7-8. Acknowledges over the last 5 months drinking 15 packs a day at 8% alcohol (marcin samaniego). Vital signs 96.6 [id number]-78-18-111/73-98%. Appearance was no acute distress. WBC 7.9-Hgb 13.8-HCT 39.7-PLT 306. NA 130 2L-K3.7-CL 90 6L-CO2 26.0-BUN 20.5H- CRE 0.93-GLU 111 Admitted from ER to detox unit Active problem list: 1. Alcohol dependence: Started on phenobarbital, gabapentin as needed dicyclomine as needed, Vistaril as needed, Imodium as needed, trazodone as needed, Zofran as needed, scheduled thiamine and scheduled folic acid. 2. Tobacco abuse: Nicotine patch prescribed, tobacco withheld. 3. Marijuana abuse: Counseled 4. Anxiety depression, PTSD: Continue home medications 5. COPD with home oxygen use: Stable, continue supplements duration O2 with continuous pulse oximetry per patient. 6. Hyponatremia chronic: Stable 7 DVT risk low: Encourage ambulation. Mild protein-calorie malnutrition 08/26/2020 11/12/2021 Encounter for support and coordination of transi tion of care 05/15/2020 05/02/2021 Overview: HOSPITAL/ER FOLLOW UP Which facility: [facility] Dates of visit: 05/10-05/13/2020 Preadmission evaluation: ER with right-sided abdominal pain over 2-1/2 hours, 10 out of 10. Worse with coughing. States she vomited 20 times the day before, with episodes of diarrhea over the past 2 days. Had used Imodium which improved diarrhea. No known exposures to Covid. Also identified chest pain which started approximately 2:00 that afternoon. Subjective fever and chills, chronic cough that is unchanged. Patient was afebrile with temp of 99.4 Fahrenheit, heart rate of 95, blood pressure 147/92. O2 saturation 94% but patient was started on O2 at 2 L per nasal cannula abdominal exam with severe tenderness over epigastric and right upper quadrant and right lower quadrant. No distention. CBC showed white count of 15.2 with neutrophils of 70. Hemoglobin 14.9, platelet 227, CMP within normal limits except for sodium of 134, glucose 107, total bili 1.5, AST and ALT 5 /277, alk phos 122, troponin negative. Lipase 170. Covid rapid test negative. Ethanol 64. Chest x-ray with generalized hyperinflation, no acute findings. CT of abdomen pelvis without contrast demonstrated severe fatty liver, mild hepatomegaly, normal gallbladder, exophytic isodense nodule on the lower pole of the right kidney, mild bilateral fatty groin hernia. Appendix considered normal. Ultrasound of gallbladder demonstrated partially distended gallbladder with a positive sonographic Kennedy sign, no gallstones. Also identified mild perihepatic ascites. In ER patient was given IV Zofran, morphine 4 mg x 2 IV, Ativan 1 mg IV x1. Primary Diagnosis/es: Acute cholecystitis Elevated LFTs Secondary Diagnosis/es: Anxiety depression Hyperlipidemia Chronic tobacco use Chronic alcohol abuse SANA Hypothyroidism COPD with emphysema Chronic back pain PTSD Chronic anemia unknown etiology Gastroesophageal reflux disease Pulmonary embolus Consultants: Surgery: Dr. Gaye Gordon testing done: ----- -Labwork: See above 05/13/2020 WBC 8.9, hemoglobin 11.4, hematocrit 36.8, elevated indices, RDW of 51.0, platelet count 171, absolute neutrophil count elevated at 7.8. Electrolytes all within normal limits except anion gap of 2, BUN of 2, creatinine 0.68 with estimated GFR of 97. Glucose 148, calcium 8.2. Bilirubin normal, AST 162, ALT 139, alk phosphatase 81 normal, total protein and albumin low 6.3, 2.1 respectively ----- -Imaging: As above 05/12/2020 hepatobiliary scan nuclear medicine: No scintigraphic evidence of cholecystitis or biliary obstruction ----- -Cardiac: ----- -Other: ----- Procedures/ Surgery: Surgery: Laparoscopic cholecystectomy with surgical findings of thickened gallbladder wall with areas of gangrene, enlarged liver with fatty infiltration ascites Hospital course: As above patient was admitted, IV fluid, pain management, taken to surgery. Patient had successful recovery and discharged in a stable condition. Instructions were to return to activity but no driving while taking narcotic medication Medication Reconciliation: Completed Patient was given oxycodone 5 mg every 12 hours #10 documented as of this encounter (statuses as of 06/23/2022) [facility]11-13-2021 History of Past illness Narrative* Problem Noted Date Resolved Date Encounter for support and coordination of transi tion of care 05/02/2021 07/23/2021 Overview: Hospital discharge summary: Date of admission 05/01/2021 Date of discharge: Facility: [facility] 05/01/2021 presented to the emergency room with acute alcohol intoxication, initial alcohol level 7-8. Acknowledges over the last 5 months drinking 15 packs a day at 8% alcohol (marcin samaniego). Vital signs 96.6 F-78-18-111/73-98%. Appearance was no acute distress. WBC 7.9-Hgb 13.8-HCT 39.7-PLT 306. NA 130 2L-K3.7-CL 90 6L-CO2 26.0-BUN 20.5H- CRE 0.93-GLU 111 Admitted from ER to detox unit Active problem list: 1. Alcohol dependence: Started on phenobarbital, gabapentin as needed dicyclomine as needed, Vistaril as needed, Imodium as needed, trazodone as needed, Zofran as needed, scheduled thiamine and scheduled folic acid. 2. Tobacco abuse: Nicotine patch prescribed, tobacco withheld. 3. Marijuana abuse: Counseled 4. Anxiety depression, PTSD: Continue home medications 5. COPD with home oxygen use: Stable, continue supplements duration O2 with continuous pulse oximetry per patient. 6. Hyponatremia chronic: Stable 7 DVT risk low: Encourage ambulation. Mild protein-calorie malnutrition 08/26/2020 11/12/2021 Encounter for support and coordination of transi tion of care 05/15/2020 05/02/2021 Overview: HOSPITAL/ER FOLLOW UP Which facility: [facility] Dates of visit: 05/10-05/13/2020 Preadmission evaluation: ER with right-sided abdominal pain over 2-1/2 hours, 10 out of 10. Worse with coughing. States she vomited 20 times the day before, with episodes of diarrhea over the past 2 days. Had used Imodium which improved diarrhea. No known exposures to Covid. Also identified chest pain which started approximately 2:00 that afternoon. Subjective fever and chills, chronic cough that is unchanged. Patient was afebrile with temp of 99.4 Fahrenheit, heart rate of 95, blood pressure 147/92. O2 saturation 94% but patient was started on O2 at 2 L per nasal cannula abdominal exam with severe tenderness over epigastric and right upper quadrant and right lower quadrant. No distention. CBC showed white count of 15.2 with neutrophils of 70. Hemoglobin 14.9, platelet 227, CMP within normal limits except for sodium of 134, glucose 107, total bili 1.5, AST and ALT 5 5/277, alk phos 122, troponin negative. Lipase 170. Covid rapid test negative. Ethanol 64. Chest x-ray with generalized hyperinflation, no acute findings. CT of abdomen pelvis without contrast demonstrated severe fatty liver, mild hepatomegaly, normal gallbladder, exophytic isodense nodule on the lower pole of the right kidney, mild bilateral fatty groin hernia. Appendix considered normal. Ultrasound of gallbladder demonstrated partially distended gallbladder with a positive sonographic Kennedy sign, no gallstones. Also identified mild perihepatic ascites. In ER patient was given IV Zofran, morphine 4 mg x 2 IV, Ativan 1 mg IV x1. Primary Diagnosis/es: Acute cholecystitis Elevated LFTs Secondary Diagnosis/es: Anxiety depression Hyperlipidemia Chronic tobacco use Chronic alcohol abuse SANA Hypothyroidism COPD with emphysema Chronic back pain PTSD Chronic anemia unknown etiology Gastroesophageal reflux disease Pulmonary embolus Consultants: Surgery: Dr. Gaye Gordon testing done: ----- -Labwork: See above 05/13/2020 WBC 8.9, hemoglobin 11.4, hematocrit 36.8, elevated indices, RDW of 51.0, platelet count 171, absolute neutrophil count elevated at 7.8. Electrolytes all within normal limits except anion gap of 2, BUN of 2, creatinine 0.68 with estimated GFR of 97. Glucose 148, calcium 8.2. Bilirubin normal, AST 162, ALT 139, alk phosphatase 81 normal, total protein and albumin low 6.3, 2.1 respectively ----- -Imaging: As above 05/12/2020 hepatobiliary scan nuclear medicine: No scintigraphic evidence of cholecystitis or biliary obstruction ----- -Cardiac: ----- -Other: ----- Procedures/ Surgery: Surgery: Laparoscopic cholecystectomy with surgical findings of thickened gallbladder wall with areas of gangrene, enlarged liver with fatty infiltration ascites Hospital course: As above patient was admitted, IV fluid, pain management, taken to surgery. Patient had successful recovery and discharged in a stable condition. Instructions were to return to activity but no driving while taking narcotic medication Medication Reconciliation: Completed Patient was given oxycodone 5 mg every 12 hours #10 documented as of this encounter (statuses as of 06/23/2022) [facility]11-13-2021 History of Past illness Narrative* Problem Noted Date Resolved Date Encounter for support and coordination of transi tion of care 05/02/2021 07/23/2021 Overview: Hospital discharge summary: Date of admission 05/01/2021 Date of discharge: Facility: [facility] 05/01/2021 presented to the emergency room with acute alcohol intoxication, initial alcohol level 7-8. Acknowledges over the last 5 months drinking 15 packs a day at 8% alcohol (marcin samaniego). Vital signs 96.6 F-78-18-111/73-98%. Appearance was no acute distress. WBC 7.9-Hgb 13.8-HCT 39.7-PLT 306. NA 130 2L-K3.7-CL 90 6L-CO2 26.0-BUN 20.5H- CRE 0.93-GLU 111 Admitted from ER to detox unit Active problem list: 1. Alcohol dependence: Started on phenobarbital, gabapentin as needed dicyclomine as needed, Vistaril as needed, Imodium as needed, trazodone as needed, Zofran as needed, scheduled thiamine and scheduled folic acid. 2. Tobacco abuse: Nicotine patch prescribed, tobacco withheld. 3. Marijuana abuse: Counseled 4. Anxiety depression, PTSD: Continue home medications 5. COPD with home oxygen use: Stable, continue supplements duration O2 with continuous pulse oximetry per patient. 6. Hyponatremia chronic: Stable 7 DVT risk low: Encourage ambulation. Mild protein-calorie malnutrition 08/26/2020 11/12/2021 Encounter for support and coordination of transi tion of care 05/15/2020 05/02/2021 Overview: HOSPITAL/ER FOLLOW UP Which facility: [facility] Dates of visit: 05/10-05/13/2020 Preadmission evaluation: ER with right-sided abdominal pain over 2-1/2 hours, 10 out of 10. Worse with coughing. States she vomited 20 times the day before, with episodes of diarrhea over the past 2 days. Had used Imodium which improved diarrhea. No known exposures to Covid. Also identified chest pain which started approximately 2:00 that afternoon. Subjective fever and chills, chronic cough that is unchanged. Patient was afebrile with temp of 99.4 Fahrenheit, heart rate of 95, blood pressure 147/92. O2 saturation 94% but patient was started on O2 at 2 L per nasal cannula abdominal exam with severe tenderness over epigastric and right upper quadrant and right lower quadrant. No distention. CBC showed white count of 15.2 with neutrophils of 70. Hemoglobin 14.9, platelet 227, CMP within normal limits except for sodium of 134, glucose 107, total bili 1.5, AST and ALT 5 5/277, alk phos 122, troponin negative. Lipase 170. Covid rapid test negative. Ethanol 64. Chest x-ray with generalized hyperinflation, no acute findings. CT of abdomen pelvis without contrast demonstrated severe fatty liver, mild hepatomegaly, normal gallbladder, exophytic isodense nodule on the lower pole of the right kidney, mild bilateral fatty groin hernia. Appendix considered normal. Ultrasound of gallbladder demonstrated partially distended gallbladder with a positive sonographic Kennedy sign, no gallstones. Also identified mild perihepatic ascites. In ER patient was given IV Zofran, morphine 4 mg x 2 IV, Ativan 1 mg IV x1. Primary Diagnosis/es: Acute cholecystitis Elevated LFTs Secondary Diagnosis/es: Anxiety depression Hyperlipidemia Chronic tobacco use Chronic alcohol abuse SANA Hypothyroidism COPD with emphysema Chronic back pain PTSD Chronic anemia unknown etiology Gastroesophageal reflux disease Pulmonary embolus Consultants: Surgery: Dr. Gaye Gordon testing done: ----- -Labwork: See above 05/13/2020 WBC 8.9, hemoglobin 11.4, hematocrit 36.8, elevated indices, RDW of 51.0, platelet count 171, absolute neutrophil count elevated at 7.8. Electrolytes all within normal limits except anion gap of 2, BUN of 2, creatinine 0.68 with estimated GFR of 97. Glucose 148, calcium 8.2. Bilirubin normal, AST 162, ALT 139, alk phosphatase 81 normal, total protein and albumin low 6.3, 2.1 respectively ----- -Imaging: As above 05/12/2020 hepatobiliary scan nuclear medicine: No scintigraphic evidence of cholecystitis or biliary obstruction ----- -Cardiac: ----- -Other: ----- Procedures/ Surgery: Surgery: Laparoscopic cholecystectomy with surgical findings of thickened gallbladder wall with areas of gangrene, enlarged liver with fatty infiltration ascites Hospital course: As above patient was admitted, IV fluid, pain management, taken to surgery. Patient had successful recovery and discharged in a stable condition. Instructions were to return to activity but no driving while taking narcotic medication Medication Reconciliation: Completed Patient was given oxycodone 5 mg every 12 hours #10 documented as of this encounter (statuses as of 06/25/2022) [facility]11-13-2021 History of Past illness Narrative* Problem Noted Date Resolved Date Encounter for support and coordination of transi tion of care 05/02/2021 07/23/2021 Overview: Hospital discharge summary: Date of admission 05/01/2021 Date of discharge: Facility: [facility] 05/01/2021 presented to the emergency room with acute alcohol intoxication, initial alcohol level 7-8. Acknowledges over the last 5 months drinking 15 packs a day at 8% alcohol (marcin samaniego). Vital signs 96.6 F-78-18-111/73-98%. Appearance was no acute distress. WBC 7.9-Hgb 13.8-HCT 39.7-PLT 306. NA 130 2L-K3.7-CL 90 6L-CO2 26.0-BUN 20.5H- CRE 0.93-GLU 111 Admitted from ER to detox unit Active problem list: 1. Alcohol dependence: Started on phenobarbital, gabapentin as needed dicyclomine as needed, Vistaril as needed, Imodium as needed, trazodone as needed, Zofran as needed, scheduled thiamine and scheduled folic acid. 2. Tobacco abuse: Nicotine patch prescribed, tobacco withheld. 3. Marijuana abuse: Counseled 4. Anxiety depression, PTSD: Continue home medications 5. COPD with home oxygen use: Stable, continue supplements duration O2 with continuous pulse oximetry per patient. 6. Hyponatremia chronic: Stable 7 DVT risk low: Encourage ambulation. Mild protein-calorie malnutrition 08/26/2020 11/12/2021 Encounter for support and coordination of transi tion of care 05/15/2020 05/02/2021 Overview: HOSPITAL/ER FOLLOW UP Which facility: [facility] Dates of visit: 05/10-05/13/2020 Preadmission evaluation: ER with right-sided abdominal pain over 2-1/2 hours, 10 out of 10. Worse with coughing. States she vomited 20 times the day before, with episodes of diarrhea over the past 2 days. Had used Imodium which improved diarrhea. No known exposures to Covid. Also identified chest pain which started approximately 2:00 that afternoon. Subjective fever and chills, chronic cough that is unchanged. Patient was afebrile with temp of 99.4 Fahrenheit, heart rate of 95, blood pressure 147/92. O2 saturation 94% but patient was started on O2 at 2 L per nasal cannula abdominal exam with severe tenderness over epigastric and right upper quadrant and right lower quadrant. No distention. CBC showed white count of 15.2 with neutrophils of 70. Hemoglobin 14.9, platelet 227, CMP within normal limits except for sodium of 134, glucose 107, total bili 1.5, AST and ALT 5 /277, alk phos 122, troponin negative. Lipase 170. Covid rapid test negative. Ethanol 64. Chest x-ray with generalized hyperinflation, no acute findings. CT of abdomen pelvis without contrast demonstrated severe fatty liver, mild hepatomegaly, normal gallbladder, exophytic isodense nodule on the lower pole of the right kidney, mild bilateral fatty groin hernia. Appendix considered normal. Ultrasound of gallbladder demonstrated partially distended gallbladder with a positive sonographic Kennedy sign, no gallstones. Also identified mild perihepatic ascites. In ER patient was given IV Zofran, morphine 4 mg x 2 IV, Ativan 1 mg IV x1. Primary Diagnosis/es: Acute cholecystitis Elevated LFTs Secondary Diagnosis/es: Anxiety depression Hyperlipidemia Chronic tobacco use Chronic alcohol abuse SANA Hypothyroidism COPD with emphysema Chronic back pain PTSD Chronic anemia unknown etiology Gastroesophageal reflux disease Pulmonary embolus Consultants: Surgery: Dr. Gaye Gordon testing done: ----- -Labwork: See above 05/13/2020 WBC 8.9, hemoglobin 11.4, hematocrit 36.8, elevated indices, RDW of 51.0, platelet count 171, absolute neutrophil count elevated at 7.8. Electrolytes all within normal limits except anion gap of 2, BUN of 2, creatinine 0.68 with estimated GFR of 97. Glucose 148, calcium 8.2. Bilirubin normal, AST 162, ALT 139, alk phosphatase 81 normal, total protein and albumin low 6.3, 2.1 respectively ----- -Imaging: As above 05/12/2020 hepatobiliary scan nuclear medicine: No scintigraphic evidence of cholecystitis or biliary obstruction ----- -Cardiac: ----- -Other: ----- Procedures/ Surgery: Surgery: Laparoscopic cholecystectomy with surgical findings of thickened gallbladder wall with areas of gangrene, enlarged liver with fatty infiltration ascites Hospital course: As above patient was admitted, IV fluid, pain management, taken to surgery. Patient had successful recovery and discharged in a stable condition. Instructions were to return to activity but no driving while taking narcotic medication Medication Reconciliation: Completed Patient was given oxycodone 5 mg every 12 hours #10 documented as of this encounter (statuses as of 06/25/2022) [place] [id number] History of Past illness Narrative* Problem Noted Date Resolved Date Encounter for support and coordination of transi tion of care 05/02/2021 07/23/2021 Overview: Hospital discharge summary: Date of admission 05/01/2021 Date of discharge: Facility: [facility] 05/01/2021 presented to the emergency room with acute alcohol intoxication, initial alcohol level 7-8. Acknowledges over the last 5 months drinking 15 packs a day at 8% alcohol (marcin samaniego). Vital signs 96.6 [id number]-[id number]/73-98%. Appearance was no acute distress. WBC 7.9-Hgb 13.8-HCT 39.7-PLT 306. NA 130 2L-K3.7-CL 90 6L-CO2 26.0-BUN 20.5H- CRE 0.93-GLU 111 Admitted from ER to detox unit Active problem list: 1. Alcohol dependence: Started on phenobarbital, gabapentin as needed dicyclomine as needed, Vistaril as needed, Imodium as needed, trazodone as needed, Zofran as needed, scheduled thiamine and scheduled folic acid. 2. Tobacco abuse: Nicotine patch prescribed, tobacco withheld. 3. Marijuana abuse: Counseled 4. Anxiety depression, PTSD: Continue home medications 5. COPD with home oxygen use: Stable, continue supplements duration O2 with continuous pulse oximetry per patient. 6. Hyponatremia chronic: Stable 7 DVT risk low: Encourage ambulation. Mild protein-calorie malnutrition 08/26/2020 11/12/2021 Encounter for support and coordination of transi tion of care 05/15/2020 05/02/2021 Overview: HOSPITAL/ER FOLLOW UP Which facility: [facility] Dates of visit: 05/10-05/13/2020 Preadmission evaluation: ER with right-sided abdominal pain over 2-1/2 hours, 10 out of 10. Worse with coughing. States she vomited 20 times the day before, with episodes of diarrhea over the past 2 days. Had used Imodium which improved diarrhea. No known exposures to Covid. Also identified chest pain which started approximately 2:00 that afternoon. Subjective fever and chills, chronic cough that is unchanged. Patient was afebrile with temp of 99.4 Fahrenheit, heart rate of 95, blood pressure 147/92. O2 saturation 94% but patient was started on O2 at 2 L per nasal cannula abdominal exam with severe tenderness over epigastric and right upper quadrant and right lower quadrant. No distention. CBC showed white count of 15.2 with neutrophils of 70. Hemoglobin 14.9, platelet 227, CMP within normal limits except for sodium of 134, glucose 107, total bili 1.5, AST and ALT 5 5/277, alk phos 122, troponin negative. Lipase 170. Covid rapid test negative. Ethanol 64. Chest x-ray with generalized hyperinflation, no acute findings. CT of abdomen pelvis without contrast demonstrated severe fatty liver, mild hepatomegaly, normal gallbladder, exophytic isodense nodule on the lower pole of the right kidney, mild bilateral fatty groin hernia. Appendix considered normal. Ultrasound of gallbladder demonstrated partially distended gallbladder with a positive sonographic Kennedy sign, no gallstones. Also identified mild perihepatic ascites. In ER patient was given IV Zofran, morphine 4 mg x 2 IV, Ativan 1 mg IV x1. Primary Diagnosis/es: Acute cholecystitis Elevated LFTs Secondary Diagnosis/es: Anxiety depression Hyperlipidemia Chronic tobacco use Chronic alcohol abuse SANA Hypothyroidism COPD with emphysema Chronic back pain PTSD Chronic anemia unknown etiology Gastroesophageal reflux disease Pulmonary embolus Consultants: Surgery: Dr. Gaye Gordon testing done: ----- -Labwork: See above 05/13/2020 WBC 8.9, hemoglobin 11.4, hematocrit 36.8, elevated indices, RDW of 51.0, platelet count 171, absolute neutrophil count elevated at 7.8. Electrolytes all within normal limits except anion gap of 2, BUN of 2, creatinine 0.68 with estimated GFR of 97. Glucose 148, calcium 8.2. Bilirubin normal, AST 162, ALT 139, alk phosphatase 81 normal, total protein and albumin low 6.3, 2.1 respectively ----- -Imaging: As above 05/12/2020 hepatobiliary scan nuclear medicine: No scintigraphic evidence of cholecystitis or biliary obstruction ----- -Cardiac: ----- -Other: ----- Procedures/ Surgery: Surgery: Laparoscopic cholecystectomy with surgical findings of thickened gallbladder wall with areas of gangrene, enlarged liver with fatty infiltration ascites Hospital course: As above patient was admitted, IV fluid, pain management, taken to surgery. Patient had successful recovery and discharged in a stable condition. Instructions were to return to activity but no driving while taking narcotic medication Medication Reconciliation: Completed Patient was given oxycodone 5 mg every 12 hours #10 documented as of this encounter (statuses as of 06/28/2022) [facility]11-13-2021 History of Past illness Narrative* Problem Noted Date Resolved Date Encounter for support and coordination of transi tion of care 05/02/2021 07/23/2021 Overview: Hospital discharge summary: Date of admission 05/01/2021 Date of discharge: Facility: [facility] 05/01/2021 presented to the emergency room with acute alcohol intoxication, initial alcohol level 7-8. Acknowledges over the last 5 months drinking 15 packs a day at 8% alcohol (marcin samaniego). Vital signs 96.6 [id number]/73-98%. Appearance was no acute distress. WBC 7.9-Hgb 13.8-HCT 39.7-PLT 306. NA 130 2L-K3.7-CL 90 6L-CO2 26.0-BUN 20.5H- CRE 0.93-GLU 111 Admitted from ER to detox unit Active problem list: 1. Alcohol dependence: Started on phenobarbital, gabapentin as needed dicyclomine as needed, Vistaril as needed, Imodium as needed, trazodone as needed, Zofran as needed, scheduled thiamine and scheduled folic acid. 2. Tobacco abuse: Nicotine patch prescribed, tobacco withheld. 3. Marijuana abuse: Counseled 4. Anxiety depression, PTSD: Continue home medications 5. COPD with home oxygen use: Stable, continue supplements duration O2 with continuous pulse oximetry per patient. 6. Hyponatremia chronic: Stable 7 DVT risk low: Encourage ambulation. Mild protein-calorie malnutrition 08/26/2020 11/12/2021 Encounter for support and coordination of transi tion of care 05/15/2020 05/02/2021 Overview: HOSPITAL/ER FOLLOW UP Which facility: [facility] Dates of visit: 05/10-05/13/2020 Preadmission evaluation: ER with right-sided abdominal pain over 2-1/2 hours, 10 out of 10. Worse with coughing. States she vomited 20 times the day before, with episodes of diarrhea over the past 2 days. Had used Imodium which improved diarrhea. No known exposures to Covid. Also identified chest pain which started approximately 2:00 that afternoon. Subjective fever and chills, chronic cough that is unchanged. Patient was afebrile with temp of 99.4 Fahrenheit, heart rate of 95, blood pressure 147/92. O2 saturation 94% but patient was started on O2 at 2 L per nasal cannula abdominal exam with severe tenderness over epigastric and right upper quadrant and right lower quadrant. No distention. CBC showed white count of 15.2 with neutrophils of 70. Hemoglobin 14.9, platelet 227, CMP within normal limits except for sodium of 134, glucose 107, total bili 1.5, AST and ALT 5 5/277, alk phos 122, troponin negative. Lipase 170. Covid rapid test negative. Ethanol 64. Chest x-ray with generalized hyperinflation, no acute findings. CT of abdomen pelvis without contrast demonstrated severe fatty liver, mild hepatomegaly, normal gallbladder, exophytic isodense nodule on the lower pole of the right kidney, mild bilateral fatty groin hernia. Appendix considered normal. Ultrasound of gallbladder demonstrated partially distended gallbladder with a positive sonographic Kennedy sign, no gallstones. Also identified mild perihepatic ascites. In ER patient was given IV Zofran, morphine 4 mg x 2 IV, Ativan 1 mg IV x1. Primary Diagnosis/es: Acute cholecystitis Elevated LFTs Secondary Diagnosis/es: Anxiety depression Hyperlipidemia Chronic tobacco use Chronic alcohol abuse SANA Hypothyroidism COPD with emphysema Chronic back pain PTSD Chronic anemia unknown etiology Gastroesophageal reflux disease Pulmonary embolus Consultants: Surgery: Dr. Gaye Gordon testing done: ----- -Labwork: See above 05/13/2020 WBC 8.9, hemoglobin 11.4, hematocrit 36.8, elevated indices, RDW of 51.0, platelet count 171, absolute neutrophil count elevated at 7.8. Electrolytes all within normal limits except anion gap of 2, BUN of 2, creatinine 0.68 with estimated GFR of 97. Glucose 148, calcium 8.2. Bilirubin normal, AST 162, ALT 139, alk phosphatase 81 normal, total protein and albumin low 6.3, 2.1 respectively ----- -Imaging: As above 05/12/2020 hepatobiliary scan nuclear medicine: No scintigraphic evidence of cholecystitis or biliary obstruction ----- -Cardiac: ----- -Other: ----- Procedures/ Surgery: Surgery: Laparoscopic cholecystectomy with surgical findings of thickened gallbladder wall with areas of gangrene, enlarged liver with fatty infiltration ascites Hospital course: As above patient was admitted, IV fluid, pain management, taken to surgery. Patient had successful recovery and discharged in a stable condition. Instructions were to return to activity but no driving while taking narcotic medication Medication Reconciliation: Completed Patient was given oxycodone 5 mg every 12 hours #10 documented as of this encounter (statuses as of 07/14/2022) [facility]11-13-2021 History of Past illness Narrative* Problem Noted Date Resolved Date Encounter for support and coordination of transi tion of care 05/02/2021 07/23/2021 Overview: Hospital discharge summary: Date of admission 05/01/2021 Date of discharge: Facility: [facility] 05/01/2021 presented to the emergency room with acute alcohol intoxication, initial alcohol level 7-8. Acknowledges over the last 5 months drinking 15 packs a day at 8% alcohol (nataidan samaniego). Vital signs 96.6 F-78-18-111/73-98%. Appearance was no acute distress. WBC 7.9-Hgb 13.8-HCT 39.7-PLT 306. NA 130 2L-K3.7-CL 90 6L-CO2 26.0-BUN 20.5H- CRE 0.93-GLU 111 Admitted from ER to detox unit Active problem list: 1. Alcohol dependence: Started on phenobarbital, gabapentin as needed dicyclomine as needed, Vistaril as needed, Imodium as needed, trazodone as needed, Zofran as needed, scheduled thiamine and scheduled folic acid. 2. Tobacco abuse: Nicotine patch prescribed, tobacco withheld. 3. Marijuana abuse: Counseled 4. Anxiety depression, PTSD: Continue home medications 5. COPD with home oxygen use: Stable, continue supplements duration O2 with continuous pulse oximetry per patient. 6. Hyponatremia chronic: Stable 7 DVT risk low: Encourage ambulation. Mild protein-calorie malnutrition 08/26/2020 11/12/2021 Encounter for support and coordination of transi tion of care 05/15/2020 05/02/2021 Overview: HOSPITAL/ER FOLLOW UP Which facility: [facility] Dates of visit: 05/10-05/13/2020 Preadmission evaluation: ER with right-sided abdominal pain over 2-1/2 hours, 10 out of 10. Worse with coughing. States she vomited 20 times the day before, with episodes of diarrhea over the past 2 days. Had used Imodium which improved diarrhea. No known exposures to Covid. Also identified chest pain which started approximately 2:00 that afternoon. Subjective fever and chills, chronic cough that is unchanged. Patient was afebrile with temp of 99.4 Fahrenheit, heart rate of 95, blood pressure 147/92. O2 saturation 94% but patient was started on O2 at 2 L per nasal cannula abdominal exam with severe tenderness over epigastric and right upper quadrant and right lower quadrant. No distention. CBC showed white count of 15.2 with neutrophils of 70. Hemoglobin 14.9, platelet 227, CMP within normal limits except for sodium of 134, glucose 107, total bili 1.5, AST and ALT 5 /277, alk phos 122, troponin negative. Lipase 170. Covid rapid test negative. Ethanol 64. Chest x-ray with generalized hyperinflation, no acute findings. CT of abdomen pelvis without contrast demonstrated severe fatty liver, mild hepatomegaly, normal gallbladder, exophytic isodense nodule on the lower pole of the right kidney, mild bilateral fatty groin hernia. Appendix considered normal. Ultrasound of gallbladder demonstrated partially distended gallbladder with a positive sonographic Kennedy sign, no gallstones. Also identified mild perihepatic ascites. In ER patient was given IV Zofran, morphine 4 mg x 2 IV, Ativan 1 mg IV x1. Primary Diagnosis/es: Acute cholecystitis Elevated LFTs Secondary Diagnosis/es: Anxiety depression Hyperlipidemia Chronic tobacco use Chronic alcohol abuse SANA Hypothyroidism COPD with emphysema Chronic back pain PTSD Chronic anemia unknown etiology Gastroesophageal reflux disease Pulmonary embolus Consultants: Surgery: Dr. Gaye Gordon testing done: ----- -Labwork: See above 05/13/2020 WBC 8.9, hemoglobin 11.4, hematocrit 36.8, elevated indices, RDW of 51.0, platelet count 171, absolute neutrophil count elevated at 7.8. Electrolytes all within normal limits except anion gap of 2, BUN of 2, creatinine 0.68 with estimated GFR of 97. Glucose 148, calcium 8.2. Bilirubin normal, AST 162, ALT 139, alk phosphatase 81 normal, total protein and albumin low 6.3, 2.1 respectively ----- -Imaging: As above 05/12/2020 hepatobiliary scan nuclear medicine: No scintigraphic evidence of cholecystitis or biliary obstruction ----- -Cardiac: ----- -Other: ----- Procedures/ Surgery: Surgery: Laparoscopic cholecystectomy with surgical findings of thickened gallbladder wall with areas of gangrene, enlarged liver with fatty infiltration ascites Hospital course: As above patient was admitted, IV fluid, pain management, taken to surgery. Patient had successful recovery and discharged in a stable condition. Instructions were to return to activity but no driving while taking narcotic medication Medication Reconciliation: Completed Patient was given oxycodone 5 mg every 12 hours #10 documented as of this encounter (statuses as of 07/16/2022) [facility]11-13-2021 History of Past illness Narrative* Problem Noted Date Resolved Date Encounter for support and coordination of transi tion of care 05/02/2021 07/23/2021 Overview: Hospital discharge summary: Date of admission 05/01/2021 Date of discharge: Facility: [facility] 05/01/2021 presented to the emergency room with acute alcohol intoxication, initial alcohol level 7-8. Acknowledges over the last 5 months drinking 15 packs a day at 8% alcohol (marcin samaniego). Vital signs 96.6 F-78-18-111/73-98%. Appearance was no acute distress. WBC 7.9-Hgb 13.8-HCT 39.7-PLT 306. NA 130 2L-K3.7-CL 90 6L-CO2 26.0-BUN 20.5H- CRE 0.93-GLU 111 Admitted from ER to detox unit Active problem list: 1. Alcohol dependence: Started on phenobarbital, gabapentin as needed dicyclomine as needed, Vistaril as needed, Imodium as needed, trazodone as needed, Zofran as needed, scheduled thiamine and scheduled folic acid. 2. Tobacco abuse: Nicotine patch prescribed, tobacco withheld. 3. Marijuana abuse: Counseled 4. Anxiety depression, PTSD: Continue home medications 5. COPD with home oxygen use: Stable, continue supplements duration O2 with continuous pulse oximetry per patient. 6. Hyponatremia chronic: Stable 7 DVT risk low: Encourage ambulation. Mild protein-calorie malnutrition 08/26/2020 11/12/2021 Encounter for support and coordination of transi tion of care 05/15/2020 05/02/2021 Overview: HOSPITAL/ER FOLLOW UP Which facility: [facility] Dates of visit: 05/10-05/13/2020 Preadmission evaluation: ER with right-sided abdominal pain over 2-1/2 hours, 10 out of 10. Worse with coughing. States she vomited 20 times the day before, with episodes of diarrhea over the past 2 days. Had used Imodium which improved diarrhea. No known exposures to Covid. Also identified chest pain which started approximately 2:00 that afternoon. Subjective fever and chills, chronic cough that is unchanged. Patient was afebrile with temp of 99.4 Fahrenheit, heart rate of 95, blood pressure 147/92. O2 saturation 94% but patient was started on O2 at 2 L per nasal cannula abdominal exam with severe tenderness over epigastric and right upper quadrant and right lower quadrant. No distention. CBC showed white count of 15.2 with neutrophils of 70. Hemoglobin 14.9, platelet 227, CMP within normal limits except for sodium of 134, glucose 107, total bili 1.5, AST and ALT 5 5/277, alk phos 122, troponin negative. Lipase 170. Covid rapid test negative. Ethanol 64. Chest x-ray with generalized hyperinflation, no acute findings. CT of abdomen pelvis without contrast demonstrated severe fatty liver, mild hepatomegaly, normal gallbladder, exophytic isodense nodule on the lower pole of the right kidney, mild bilateral fatty groin hernia. Appendix considered normal. Ultrasound of gallbladder demonstrated partially distended gallbladder with a positive sonographic Kennedy sign, no gallstones. Also identified mild perihepatic ascites. In ER patient was given IV Zofran, morphine 4 mg x 2 IV, Ativan 1 mg IV x1. Primary Diagnosis/es: Acute cholecystitis Elevated LFTs Secondary Diagnosis/es: Anxiety depression Hyperlipidemia Chronic tobacco use Chronic alcohol abuse SNAA Hypothyroidism COPD with emphysema Chronic back pain PTSD Chronic anemia unknown etiology Gastroesophageal reflux disease Pulmonary embolus Consultants: Surgery: Dr. Gaye Gordon testing done: ----- -Labwork: See above 05/13/2020 WBC 8.9, hemoglobin 11.4, hematocrit 36.8, elevated indices, RDW of 51.0, platelet count 171, absolute neutrophil count elevated at 7.8. Electrolytes all within normal limits except anion gap of 2, BUN of 2, creatinine 0.68 with estimated GFR of 97. Glucose 148, calcium 8.2. Bilirubin normal, AST 162, ALT 139, alk phosphatase 81 normal, total protein and albumin low 6.3, 2.1 respectively ----- -Imaging: As above 05/12/2020 hepatobiliary scan nuclear medicine: No scintigraphic evidence of cholecystitis or biliary obstruction ----- -Cardiac: ----- -Other: ----- Procedures/ Surgery: Surgery: Laparoscopic cholecystectomy with surgical findings of thickened gallbladder wall with areas of gangrene, enlarged liver with fatty infiltration ascites Hospital course: As above patient was admitted, IV fluid, pain management, taken to surgery. Patient had successful recovery and discharged in a stable condition. Instructions were to return to activity but no driving while taking narcotic medication Medication Reconciliation: Completed Patient was given oxycodone 5 mg every 12 hours #10 documented as of this encounter (statuses as of 07/22/2022) [facility]-13-2021 History of Past illness Narrative* Problem Noted Date Resolved Date Encounter for support and coordination of transi tion of care 05/02/2021 07/23/2021 Overview: Hospital discharge summary: Date of admission 05/01/2021 Date of discharge: Facility: [facility] 05/01/2021 presented to the emergency room with acute alcohol intoxication, initial alcohol level 7-8. Acknowledges over the last 5 months drinking 15 packs a day at 8% alcohol (marcin samaniego). Vital signs 96.6 F-78-18-111/73-98%. Appearance was no acute distress. WBC 7.9-Hgb 13.8-HCT 39.7-PLT 306. NA 130 2L-K3.7-CL 90 6L-CO2 26.0-BUN 20.5H- CRE 0.93-GLU 111 Admitted from ER to detox unit Active problem list: 1. Alcohol dependence: Started on phenobarbital, gabapentin as needed dicyclomine as needed, Vistaril as needed, Imodium as needed, trazodone as needed, Zofran as needed, scheduled thiamine and scheduled folic acid. 2. Tobacco abuse: Nicotine patch prescribed, tobacco withheld. 3. Marijuana abuse: Counseled 4. Anxiety depression, PTSD: Continue home medications 5. COPD with home oxygen use: Stable, continue supplements duration O2 with continuous pulse oximetry per patient. 6. Hyponatremia chronic: Stable 7 DVT risk low: Encourage ambulation. Mild protein-calorie malnutrition 08/26/2020 11/12/2021 Encounter for support and coordination of transi tion of care 05/15/2020 05/02/2021 Overview: HOSPITAL/ER FOLLOW UP Which facility: [facility] Dates of visit: 05/10-05/13/2020 Preadmission evaluation: ER with right-sided abdominal pain over 2-1/2 hours, 10 out of 10. Worse with coughing. States she vomited 20 times the day before, with episodes of diarrhea over the past 2 days. Had used Imodium which improved diarrhea. No known exposures to Covid. Also identified chest pain which started approximately 2:00 that afternoon. Subjective fever and chills, chronic cough that is unchanged. Patient was afebrile with temp of 99.4 Fahrenheit, heart rate of 95, blood pressure 147/92. O2 saturation 94% but patient was started on O2 at 2 L per nasal cannula abdominal exam with severe tenderness over epigastric and right upper quadrant and right lower quadrant. No distention. CBC showed white count of 15.2 with neutrophils of 70. Hemoglobin 14.9, platelet 227, CMP within normal limits except for sodium of 134, glucose 107, total bili 1.5, AST and ALT 5 5/277, alk phos 122, troponin negative. Lipase 170. Covid rapid test negative. Ethanol 64. Chest x-ray with generalized hyperinflation, no acute findings. CT of abdomen pelvis without contrast demonstrated severe fatty liver, mild hepatomegaly, normal gallbladder, exophytic isodense nodule on the lower pole of the right kidney, mild bilateral fatty groin hernia. Appendix considered normal. Ultrasound of gallbladder demonstrated partially distended gallbladder with a positive sonographic Kennedy sign, no gallstones. Also identified mild perihepatic ascites. In ER patient was given IV Zofran, morphine 4 mg x 2 IV, Ativan 1 mg IV x1. Primary Diagnosis/es: Acute cholecystitis Elevated LFTs Secondary Diagnosis/es: Anxiety depression Hyperlipidemia Chronic tobacco use Chronic alcohol abuse SANA Hypothyroidism COPD with emphysema Chronic back pain PTSD Chronic anemia unknown etiology Gastroesophageal reflux disease Pulmonary embolus Consultants: Surgery: Dr. Gaye Gordon testing done: ----- -Labwork: See above 05/13/2020 WBC 8.9, hemoglobin 11.4, hematocrit 36.8, elevated indices, RDW of 51.0, platelet count 171, absolute neutrophil count elevated at 7.8. Electrolytes all within normal limits except anion gap of 2, BUN of 2, creatinine 0.68 with estimated GFR of 97. Glucose 148, calcium 8.2. Bilirubin normal, AST 162, ALT 139, alk phosphatase 81 normal, total protein and albumin low 6.3, 2.1 respectively ----- -Imaging: As above 05/12/2020 hepatobiliary scan nuclear medicine: No scintigraphic evidence of cholecystitis or biliary obstruction ----- -Cardiac: ----- -Other: ----- Procedures/ Surgery: Surgery: Laparoscopic cholecystectomy with surgical findings of thickened gallbladder wall with areas of gangrene, enlarged liver with fatty infiltration ascites Hospital course: As above patient was admitted, IV fluid, pain management, taken to surgery. Patient had successful recovery and discharged in a stable condition. Instructions were to return to activity but no driving while taking narcotic medication Medication Reconciliation: Completed Patient was given oxycodone 5 mg every 12 hours #10 documented as of this encounter (statuses as of 08/06/2022) [facility]11-13-2021 History of Past illness Narrative* Problem Noted Date Resolved Date Encounter for support and coordination of transi tion of care 05/02/2021 07/23/2021 Overview: Hospital discharge summary: Date of admission 05/01/2021 Date of discharge: Facility: [facility] 05/01/2021 presented to the emergency room with acute alcohol intoxication, initial alcohol level 7-8. Acknowledges over the last 5 months drinking 15 packs a day at 8% alcohol (joseaidan garciaalfa). Vital signs 96.6 [id number]-78-18-111/73-98%. Appearance was no acute distress. WBC 7.9-Hgb 13.8-HCT 39.7-PLT 306. NA 130 2L-K3.7-CL 90 6L-CO2 26.0-BUN 20.5H- CRE 0.93-GLU 111 Admitted from ER to detox unit Active problem list: 1. Alcohol dependence: Started on phenobarbital, gabapentin as needed dicyclomine as needed, Vistaril as needed, Imodium as needed, trazodone as needed, Zofran as needed, scheduled thiamine and scheduled folic acid. 2. Tobacco abuse: Nicotine patch prescribed, tobacco withheld. 3. Marijuana abuse: Counseled 4. Anxiety depression, PTSD: Continue home medications 5. COPD with home oxygen use: Stable, continue supplements duration O2 with continuous pulse oximetry per patient. 6. Hyponatremia chronic: Stable 7 DVT risk low: Encourage ambulation. Mild protein-calorie malnutrition 08/26/2020 11/12/2021 Encounter for support and coordination of transi tion of care 05/15/2020 05/02/2021 Overview: HOSPITAL/ER FOLLOW UP Which facility: [facility] Dates of visit: 05/10-05/13/2020 Preadmission evaluation: ER with right-sided abdominal pain over 2-1/2 hours, 10 out of 10. Worse with coughing. States she vomited 20 times the day before, with episodes of diarrhea over the past 2 days. Had used Imodium which improved diarrhea. No known exposures to Covid. Also identified chest pain which started approximately 2:00 that afternoon. Subjective fever and chills, chronic cough that is unchanged. Patient was afebrile with temp of 99.4 Fahrenheit, heart rate of 95, blood pressure 147/92. O2 saturation 94% but patient was started on O2 at 2 L per nasal cannula abdominal exam with severe tenderness over epigastric and right upper quadrant and right lower quadrant. No distention. CBC showed white count of 15.2 with neutrophils of 70. Hemoglobin 14.9, platelet 227, CMP within normal limits except for sodium of 134, glucose 107, total bili 1.5, AST and ALT 5 5/277, alk phos 122, troponin negative. Lipase 170. Covid rapid test negative. Ethanol 64. Chest x-ray with generalized hyperinflation, no acute findings. CT of abdomen pelvis without contrast demonstrated severe fatty liver, mild hepatomegaly, normal gallbladder, exophytic isodense nodule on the lower pole of the right kidney, mild bilateral fatty groin hernia. Appendix considered normal. Ultrasound of gallbladder demonstrated partially distended gallbladder with a positive sonographic Kennedy sign, no gallstones. Also identified mild perihepatic ascites. In ER patient was given IV Zofran, morphine 4 mg x 2 IV, Ativan 1 mg IV x1. Primary Diagnosis/es: Acute cholecystitis Elevated LFTs Secondary Diagnosis/es: Anxiety depression Hyperlipidemia Chronic tobacco use Chronic alcohol abuse SANA Hypothyroidism COPD with emphysema Chronic back pain PTSD Chronic anemia unknown etiology Gastroesophageal reflux disease Pulmonary embolus Consultants: Surgery: Dr. Gaye Gordon testing done: ----- -Labwork: See above 05/13/2020 WBC 8.9, hemoglobin 11.4, hematocrit 36.8, elevated indices, RDW of 51.0, platelet count 171, absolute neutrophil count elevated at 7.8. Electrolytes all within normal limits except anion gap of 2, BUN of 2, creatinine 0.68 with estimated GFR of 97. Glucose 148, calcium 8.2. Bilirubin normal, AST 162, ALT 139, alk phosphatase 81 normal, total protein and albumin low 6.3, 2.1 respectively ----- -Imaging: As above 05/12/2020 hepatobiliary scan nuclear medicine: No scintigraphic evidence of cholecystitis or biliary obstruction ----- -Cardiac: ----- -Other: ----- Procedures/ Surgery: Surgery: Laparoscopic cholecystectomy with surgical findings of thickened gallbladder wall with areas of gangrene, enlarged liver with fatty infiltration ascites Hospital course: As above patient was admitted, IV fluid, pain management, taken to surgery. Patient had successful recovery and discharged in a stable condition. Instructions were to return to activity but no driving while taking narcotic medication Medication Reconciliation: Completed Patient was given oxycodone 5 mg every 12 hours #10 documented as of this encounter (statuses as of 08/13/2022) [facility]11-13-2021 History of Past illness Narrative* Problem Noted Date Resolved Date Encounter for support and coordination of transi tion of care 05/02/2021 07/23/2021 Overview: Hospital discharge summary: Date of admission 05/01/2021 Date of discharge: Facility: [facility] 05/01/2021 presented to the emergency room with acute alcohol intoxication, initial alcohol level 7-8. Acknowledges over the last 5 months drinking 15 packs a day at 8% alcohol (marcin samaniego). Vital signs 96.6 [id number]/73-98%. Appearance was no acute distress. WBC 7.9-Hgb 13.8-HCT 39.7-PLT 306. NA 130 2L-K3.7-CL 90 6L-CO2 26.0-BUN 20.5H- CRE 0.93-GLU 111 Admitted from ER to detox unit Active problem list: 1. Alcohol dependence: Started on phenobarbital, gabapentin as needed dicyclomine as needed, Vistaril as needed, Imodium as needed, trazodone as needed, Zofran as needed, scheduled thiamine and scheduled folic acid. 2. Tobacco abuse: Nicotine patch prescribed, tobacco withheld. 3. Marijuana abuse: Counseled 4. Anxiety depression, PTSD: Continue home medications 5. COPD with home oxygen use: Stable, continue supplements duration O2 with continuous pulse oximetry per patient. 6. Hyponatremia chronic: Stable 7 DVT risk low: Encourage ambulation. Mild protein-calorie malnutrition 08/26/2020 11/12/2021 Encounter for support and coordination of transi tion of care 05/15/2020 05/02/2021 Overview: HOSPITAL/ER FOLLOW UP Which facility: [facility] Dates of visit: 05/10-05/13/2020 Preadmission evaluation: ER with right-sided abdominal pain over 2-1/2 hours, 10 out of 10. Worse with coughing. States she vomited 20 times the day before, with episodes of diarrhea over the past 2 days. Had used Imodium which improved diarrhea. No known exposures to Covid. Also identified chest pain which started approximately 2:00 that afternoon. Subjective fever and chills, chronic cough that is unchanged. Patient was afebrile with temp of 99.4 Fahrenheit, heart rate of 95, blood pressure 147/92. O2 saturation 94% but patient was started on O2 at 2 L per nasal cannula abdominal exam with severe tenderness over epigastric and right upper quadrant and right lower quadrant. No distention. CBC showed white count of 15.2 with neutrophils of 70. Hemoglobin 14.9, platelet 227, CMP within normal limits except for sodium of 134, glucose 107, total bili 1.5, AST and ALT 5 5/277, alk phos 122, troponin negative. Lipase 170. Covid rapid test negative. Ethanol 64. Chest x-ray with generalized hyperinflation, no acute findings. CT of abdomen pelvis without contrast demonstrated severe fatty liver, mild hepatomegaly, normal gallbladder, exophytic isodense nodule on the lower pole of the right kidney, mild bilateral fatty groin hernia. Appendix considered normal. Ultrasound of gallbladder demonstrated partially distended gallbladder with a positive sonographic Kennedy sign, no gallstones. Also identified mild perihepatic ascites. In ER patient was given IV Zofran, morphine 4 mg x 2 IV, Ativan 1 mg IV x1. Primary Diagnosis/es: Acute cholecystitis Elevated LFTs Secondary Diagnosis/es: Anxiety depression Hyperlipidemia Chronic tobacco use Chronic alcohol abuse SANA Hypothyroidism COPD with emphysema Chronic back pain PTSD Chronic anemia unknown etiology Gastroesophageal reflux disease Pulmonary embolus Consultants: Surgery: Dr. Gaye Gordon testing done: ----- -Labwork: See above 05/13/2020 WBC 8.9, hemoglobin 11.4, hematocrit 36.8, elevated indices, RDW of 51.0, platelet count 171, absolute neutrophil count elevated at 7.8. Electrolytes all within normal limits except anion gap of 2, BUN of 2, creatinine 0.68 with estimated GFR of 97. Glucose 148, calcium 8.2. Bilirubin normal, AST 162, ALT 139, alk phosphatase 81 normal, total protein and albumin low 6.3, 2.1 respectively ----- -Imaging: As above 05/12/2020 hepatobiliary scan nuclear medicine: No scintigraphic evidence of cholecystitis or biliary obstruction ----- -Cardiac: ----- -Other: ----- Procedures/ Surgery: Surgery: Laparoscopic cholecystectomy with surgical findings of thickened gallbladder wall with areas of gangrene, enlarged liver with fatty infiltration ascites Hospital course: As above patient was admitted, IV fluid, pain management, taken to surgery. Patient had successful recovery and discharged in a stable condition. Instructions were to return to activity but no driving while taking narcotic medication Medication Reconciliation: Completed Patient was given oxycodone 5 mg every 12 hours #10 documented as of this encounter (statuses as of 08/16/2022) [facility]11-13-2021 History of Past illness Narrative* Problem Noted Date Resolved Date Encounter for support and coordination of transi tion of care 05/02/2021 07/23/2021 Overview: Hospital discharge summary: Date of admission 05/01/2021 Date of discharge: Facility: [facility] 05/01/2021 presented to the emergency room with acute alcohol intoxication, initial alcohol level 7-8. Acknowledges over the last 5 months drinking 15 packs a day at 8% alcohol (marcin samaniego). Vital signs 96.6 [id number]-78-18-111/73-98%. Appearance was no acute distress. WBC 7.9-Hgb 13.8-HCT 39.7-PLT 306. NA 130 2L-K3.7-CL 90 6L-CO2 26.0-BUN 20.5H- CRE 0.93-GLU 111 Admitted from ER to detox unit Active problem list: 1. Alcohol dependence: Started on phenobarbital, gabapentin as needed dicyclomine as needed, Vistaril as needed, Imodium as needed, trazodone as needed, Zofran as needed, scheduled thiamine and scheduled folic acid. 2. Tobacco abuse: Nicotine patch prescribed, tobacco withheld. 3. Marijuana abuse: Counseled 4. Anxiety depression, PTSD: Continue home medications 5. COPD with home oxygen use: Stable, continue supplements duration O2 with continuous pulse oximetry per patient. 6. Hyponatremia chronic: Stable 7 DVT risk low: Encourage ambulation. Mild protein-calorie malnutrition 08/26/2020 11/12/2021 Encounter for support and coordination of transi tion of care 05/15/2020 05/02/2021 Overview: HOSPITAL/ER FOLLOW UP Which facility: [facility] Dates of visit: 05/10-05/13/2020 Preadmission evaluation: ER with right-sided abdominal pain over 2-1/2 hours, 10 out of 10. Worse with coughing. States she vomited 20 times the day before, with episodes of diarrhea over the past 2 days. Had used Imodium which improved diarrhea. No known exposures to Covid. Also identified chest pain which started approximately 2:00 that afternoon. Subjective fever and chills, chronic cough that is unchanged. Patient was afebrile with temp of 99.4 Fahrenheit, heart rate of 95, blood pressure 147/92. O2 saturation 94% but patient was started on O2 at 2 L per nasal cannula abdominal exam with severe tenderness over epigastric and right upper quadrant and right lower quadrant. No distention. CBC showed white count of 15.2 with neutrophils of 70. Hemoglobin 14.9, platelet 227, CMP within normal limits except for sodium of 134, glucose 107, total bili 1.5, AST and ALT 5 5/277, alk phos 122, troponin negative. Lipase 170. Covid rapid test negative. Ethanol 64. Chest x-ray with generalized hyperinflation, no acute findings. CT of abdomen pelvis without contrast demonstrated severe fatty liver, mild hepatomegaly, normal gallbladder, exophytic isodense nodule on the lower pole of the right kidney, mild bilateral fatty groin hernia. Appendix considered normal. Ultrasound of gallbladder demonstrated partially distended gallbladder with a positive sonographic Kennedy sign, no gallstones. Also identified mild perihepatic ascites. In ER patient was given IV Zofran, morphine 4 mg x 2 IV, Ativan 1 mg IV x1. Primary Diagnosis/es: Acute cholecystitis Elevated LFTs Secondary Diagnosis/es: Anxiety depression Hyperlipidemia Chronic tobacco use Chronic alcohol abuse SANA Hypothyroidism COPD with emphysema Chronic back pain PTSD Chronic anemia unknown etiology Gastroesophageal reflux disease Pulmonary embolus Consultants: Surgery: Dr. Gaye Gordon testing done: ----- -Labwork: See above 05/13/2020 WBC 8.9, hemoglobin 11.4, hematocrit 36.8, elevated indices, RDW of 51.0, platelet count 171, absolute neutrophil count elevated at 7.8. Electrolytes all within normal limits except anion gap of 2, BUN of 2, creatinine 0.68 with estimated GFR of 97. Glucose 148, calcium 8.2. Bilirubin normal, AST 162, ALT 139, alk phosphatase 81 normal, total protein and albumin low 6.3, 2.1 respectively ----- -Imaging: As above 05/12/2020 hepatobiliary scan nuclear medicine: No scintigraphic evidence of cholecystitis or biliary obstruction ----- -Cardiac: ----- -Other: ----- Procedures/ Surgery: Surgery: Laparoscopic cholecystectomy with surgical findings of thickened gallbladder wall with areas of gangrene, enlarged liver with fatty infiltration ascites Hospital course: As above patient was admitted, IV fluid, pain management, taken to surgery. Patient had successful recovery and discharged in a stable condition. Instructions were to return to activity but no driving while taking narcotic medication Medication Reconciliation: Completed Patient was given oxycodone 5 mg every 12 hours #10 documented as of this encounter (statuses as of 08/17/2022) [facility]11-13-2021 History of Past illness Narrative* Problem Noted Date Resolved Date Encounter for support and coordination of transi tion of care 05/02/2021 07/23/2021 Overview: Hospital discharge summary: Date of admission 05/01/2021 Date of discharge: Facility: [facility] 05/01/2021 presented to the emergency room with acute alcohol intoxication, initial alcohol level 7-8. Acknowledges over the last 5 months drinking 15 packs a day at 8% alcohol (natty daddy). Vital signs 96.6 [id number]-78-18-111/73-98%. Appearance was no acute distress. WBC 7.9-Hgb 13.8-HCT 39.7-PLT 306. NA 130 2L-K3.7-CL 90 6L-CO2 26.0-BUN 20.5H- CRE 0.93-GLU 111 Admitted from ER to detox unit Active problem list: 1. Alcohol dependence: Started on phenobarbital, gabapentin as needed dicyclomine as needed, Vistaril as needed, Imodium as needed, trazodone as needed, Zofran as needed, scheduled thiamine and scheduled folic acid. 2. Tobacco abuse: Nicotine patch prescribed, tobacco withheld. 3. Marijuana abuse: Counseled 4. Anxiety depression, PTSD: Continue home medications 5. COPD with home oxygen use: Stable, continue supplements duration O2 with continuous pulse oximetry per patient. 6. Hyponatremia chronic: Stable 7 DVT risk low: Encourage ambulation. Mild protein-calorie malnutrition 08/26/2020 11/12/2021 Encounter for support and coordination of transi tion of care 05/15/2020 05/02/2021 Overview: HOSPITAL/ER FOLLOW UP Which facility: [facility] Dates of visit: 05/10-05/13/2020 Preadmission evaluation: ER with right-sided abdominal pain over 2-1/2 hours, 10 out of 10. Worse with coughing. States she vomited 20 times the day before, with episodes of diarrhea over the past 2 days. Had used Imodium which improved diarrhea. No known exposures to Covid. Also identified chest pain which started approximately 2:00 that afternoon. Subjective fever and chills, chronic cough that is unchanged. Patient was afebrile with temp of 99.4 Fahrenheit, heart rate of 95, blood pressure 147/92. O2 saturation 94% but patient was started on O2 at 2 L per nasal cannula abdominal exam with severe tenderness over epigastric and right upper quadrant and right lower quadrant. No distention. CBC showed white count of 15.2 with neutrophils of 70. Hemoglobin 14.9, platelet 227, CMP within normal limits except for sodium of 134, glucose 107, total bili 1.5, AST and ALT 5 5/277, alk phos 122, troponin negative. Lipase 170. Covid rapid test negative. Ethanol 64. Chest x-ray with generalized hyperinflation, no acute findings. CT of abdomen pelvis without contrast demonstrated severe fatty liver, mild hepatomegaly, normal gallbladder, exophytic isodense nodule on the lower pole of the right kidney, mild bilateral fatty groin hernia. Appendix considered normal. Ultrasound of gallbladder demonstrated partially distended gallbladder with a positive sonographic Kennedy sign, no gallstones. Also identified mild perihepatic ascites. In ER patient was given IV Zofran, morphine 4 mg x 2 IV, Ativan 1 mg IV x1. Primary Diagnosis/es: Acute cholecystitis Elevated LFTs Secondary Diagnosis/es: Anxiety depression Hyperlipidemia Chronic tobacco use Chronic alcohol abuse SANA Hypothyroidism COPD with emphysema Chronic back pain PTSD Chronic anemia unknown etiology Gastroesophageal reflux disease Pulmonary embolus Consultants: Surgery: Dr. Gaye Gordon testing done: ----- -Labwork: See above 05/13/2020 WBC 8.9, hemoglobin 11.4, hematocrit 36.8, elevated indices, RDW of 51.0, platelet count 171, absolute neutrophil count elevated at 7.8. Electrolytes all within normal limits except anion gap of 2, BUN of 2, creatinine 0.68 with estimated GFR of 97. Glucose 148, calcium 8.2. Bilirubin normal, AST 162, ALT 139, alk phosphatase 81 normal, total protein and albumin low 6.3, 2.1 respectively ----- -Imaging: As above 05/12/2020 hepatobiliary scan nuclear medicine: No scintigraphic evidence of cholecystitis or biliary obstruction ----- -Cardiac: ----- -Other: ----- Procedures/ Surgery: Surgery: Laparoscopic cholecystectomy with surgical findings of thickened gallbladder wall with areas of gangrene, enlarged liver with fatty infiltration ascites Hospital course: As above patient was admitted, IV fluid, pain management, taken to surgery. Patient had successful recovery and discharged in a stable condition. Instructions were to return to activity but no driving while taking narcotic medication Medication Reconciliation: Completed Patient was given oxycodone 5 mg every 12 hours #10 documented as of this encounter (statuses as of 08/18/2022) [facility]-13-[facility]21 History of Past illness Narrative* Problem Noted Date Resolved Date Encounter for support and coordination of transi tion of care 05/02/2021 07/23/2021 Overview: Hospital discharge summary: Date of admission 05/01/2021 Date of discharge: Facility: [facility] 05/01/2021 presented to the emergency room with acute alcohol intoxication, initial alcohol level 7-8. Acknowledges over the last 5 months drinking 15 packs a day at 8% alcohol (marcin samaniego). Vital signs 96.6 F-78-18-111/73-98%. Appearance was no acute distress. WBC 7.9-Hgb 13.8-HCT 39.7-PLT 306. NA 130 2L-K3.7-CL 90 6L-CO2 26.0-BUN 20.5H- CRE 0.93-GLU 111 Admitted from ER to detox unit Active problem list: 1. Alcohol dependence: Started on phenobarbital, gabapentin as needed dicyclomine as needed, Vistaril as needed, Imodium as needed, trazodone as needed, Zofran as needed, scheduled thiamine and scheduled folic acid. 2. Tobacco abuse: Nicotine patch prescribed, tobacco withheld. 3. Marijuana abuse: Counseled 4. Anxiety depression, PTSD: Continue home medications 5. COPD with home oxygen use: Stable, continue supplements duration O2 with continuous pulse oximetry per patient. 6. Hyponatremia chronic: Stable 7 DVT risk low: Encourage ambulation. Mild protein-calorie malnutrition 08/26/2020 11/12/2021 Encounter for support and coordination of transi tion of care 05/15/2020 05/02/2021 Overview: HOSPITAL/ER FOLLOW UP Which facility: [facility] Dates of visit: 05/10-05/13/2020 Preadmission evaluation: ER with right-sided abdominal pain over 2-1/2 hours, 10 out of 10. Worse with coughing. States she vomited 20 times the day before, with episodes of diarrhea over the past 2 days. Had used Imodium which improved diarrhea. No known exposures to Covid. Also identified chest pain which started approximately 2:00 that afternoon. Subjective fever and chills, chronic cough that is unchanged. Patient was afebrile with temp of 99.4 Fahrenheit, heart rate of 95, blood pressure 147/92. O2 saturation 94% but patient was started on O2 at 2 L per nasal cannula abdominal exam with severe tenderness over epigastric and right upper quadrant and right lower quadrant. No distention. CBC showed white count of 15.2 with neutrophils of 70. Hemoglobin 14.9, platelet 227, CMP within normal limits except for sodium of 134, glucose 107, total bili 1.5, AST and ALT 5 5/277, alk phos 122, troponin negative. Lipase 170. Covid rapid test negative. Ethanol 64. Chest x-ray with generalized hyperinflation, no acute findings. CT of abdomen pelvis without contrast demonstrated severe fatty liver, mild hepatomegaly, normal gallbladder, exophytic isodense nodule on the lower pole of the right kidney, mild bilateral fatty groin hernia. Appendix considered normal. Ultrasound of gallbladder demonstrated partially distended gallbladder with a positive sonographic Kennedy sign, no gallstones. Also identified mild perihepatic ascites. In ER patient was given IV Zofran, morphine 4 mg x 2 IV, Ativan 1 mg IV x1. Primary Diagnosis/es: Acute cholecystitis Elevated LFTs Secondary Diagnosis/es: Anxiety depression Hyperlipidemia Chronic tobacco use Chronic alcohol abuse SANA Hypothyroidism COPD with emphysema Chronic back pain PTSD Chronic anemia unknown etiology Gastroesophageal reflux disease Pulmonary embolus Consultants: Surgery: Dr. Gaye Gordon testing done: ----- -Labwork: See above 05/13/2020 WBC 8.9, hemoglobin 11.4, hematocrit 36.8, elevated indices, RDW of 51.0, platelet count 171, absolute neutrophil count elevated at 7.8. Electrolytes all within normal limits except anion gap of 2, BUN of 2, creatinine 0.68 with estimated GFR of 97. Glucose 148, calcium 8.2. Bilirubin normal, AST 162, ALT 139, alk phosphatase 81 normal, total protein and albumin low 6.3, 2.1 respectively ----- -Imaging: As above 05/12/2020 hepatobiliary scan nuclear medicine: No scintigraphic evidence of cholecystitis or biliary obstruction ----- -Cardiac: ----- -Other: ----- Procedures/ Surgery: Surgery: Laparoscopic cholecystectomy with surgical findings of thickened gallbladder wall with areas of gangrene, enlarged liver with fatty infiltration ascites Hospital course: As above patient was admitted, IV fluid, pain management, taken to surgery. Patient had successful recovery and discharged in a stable condition. Instructions were to return to activity but no driving while taking narcotic medication Medication Reconciliation: Completed Patient was given oxycodone 5 mg every 12 hours #10 documented as of this encounter (statuses as of 08/26/2022) [facility] History of Past illness Narrative* Problem Noted Date Resolved Date Encounter for support and coordination of transi tion of care 05/02/2021 07/23/2021 Overview: Hospital discharge summary: Date of admission 05/01/2021 Date of discharge: Facility: [facility] 05/01/2021 presented to the emergency room with acute alcohol intoxication, initial alcohol level 7-8. Acknowledges over the last 5 months drinking 15 packs a day at 8% alcohol (nataidan samaniego). Vital signs 96.6 F-78-18-111/73-98%. Appearance was no acute distress. WBC 7.9-Hgb 13.8-HCT 39.7-PLT 306. NA 130 2L-K3.7-CL 90 6L-CO2 26.0-BUN 20.5H- CRE 0.93-GLU 111 Admitted from ER to detox unit Active problem list: 1. Alcohol dependence: Started on phenobarbital, gabapentin as needed dicyclomine as needed, Vistaril as needed, Imodium as needed, trazodone as needed, Zofran as needed, scheduled thiamine and scheduled folic acid. 2. Tobacco abuse: Nicotine patch prescribed, tobacco withheld. 3. Marijuana abuse: Counseled 4. Anxiety depression, PTSD: Continue home medications 5. COPD with home oxygen use: Stable, continue supplements duration O2 with continuous pulse oximetry per patient. 6. Hyponatremia chronic: Stable 7 DVT risk low: Encourage ambulation. Mild protein-calorie malnutrition 08/26/2020 11/12/2021 Encounter for support and coordination of transi tion of care 05/15/2020 05/02/2021 Overview: HOSPITAL/ER FOLLOW UP Which facility: [facility] Dates of visit: 05/10-05/13/2020 Preadmission evaluation: ER with right-sided abdominal pain over 2-1/2 hours, 10 out of 10. Worse with coughing. States she vomited 20 times the day before, with episodes of diarrhea over the past 2 days. Had used Imodium which improved diarrhea. No known exposures to Covid. Also identified chest pain which started approximately 2:00 that afternoon. Subjective fever and chills, chronic cough that is unchanged. Patient was afebrile with temp of 99.4 Fahrenheit, heart rate of 95, blood pressure 147/92. O2 saturation 94% but patient was started on O2 at 2 L per nasal cannula abdominal exam with severe tenderness over epigastric and right upper quadrant and right lower quadrant. No distention. CBC showed white count of 15.2 with neutrophils of 70. Hemoglobin 14.9, platelet 227, CMP within normal limits except for sodium of 134, glucose 107, total bili 1.5, AST and ALT 5 5/277, alk phos 122, troponin negative. Lipase 170. Covid rapid test negative. Ethanol 64. Chest x-ray with generalized hyperinflation, no acute findings. CT of abdomen pelvis without contrast demonstrated severe fatty liver, mild hepatomegaly, normal gallbladder, exophytic isodense nodule on the lower pole of the right kidney, mild bilateral fatty groin hernia. Appendix considered normal. Ultrasound of gallbladder demonstrated partially distended gallbladder with a positive sonographic Kennedy sign, no gallstones. Also identified mild perihepatic ascites. In ER patient was given IV Zofran, morphine 4 mg x 2 IV, Ativan 1 mg IV x1. Primary Diagnosis/es: Acute cholecystitis Elevated LFTs Secondary Diagnosis/es: Anxiety depression Hyperlipidemia Chronic tobacco use Chronic alcohol abuse SANA Hypothyroidism COPD with emphysema Chronic back pain PTSD Chronic anemia unknown etiology Gastroesophageal reflux disease Pulmonary embolus Consultants: Surgery: Dr. Gaye Gordon testing done: ----- -Labwork: See above 05/13/2020 WBC 8.9, hemoglobin 11.4, hematocrit 36.8, elevated indices, RDW of 51.0, platelet count 171, absolute neutrophil count elevated at 7.8. Electrolytes all within normal limits except anion gap of 2, BUN of 2, creatinine 0.68 with estimated GFR of 97. Glucose 148, calcium 8.2. Bilirubin normal, AST 162, ALT 139, alk phosphatase 81 normal, total protein and albumin low 6.3, 2.1 respectively ----- -Imaging: As above 05/12/2020 hepatobiliary scan nuclear medicine: No scintigraphic evidence of cholecystitis or biliary obstruction ----- -Cardiac: ----- -Other: ----- Procedures/ Surgery: Surgery: Laparoscopic cholecystectomy with surgical findings of thickened gallbladder wall with areas of gangrene, enlarged liver with fatty infiltration ascites Hospital course: As above patient was admitted, IV fluid, pain management, taken to surgery. Patient had successful recovery and discharged in a stable condition. Instructions were to return to activity but no driving while taking narcotic medication Medication Reconciliation: Completed Patient was given oxycodone 5 mg every 12 hours #10 documented as of this encounter (statuses as of 08/27/2022) [facility]11-13-2021 History of Past illness Narrative* Problem Noted Date Resolved Date Encounter for support and coordination of transi tion of care 05/02/2021 07/23/2021 Overview: Hospital discharge summary: Date of admission 05/01/2021 Date of discharge: Facility: [facility] 05/01/2021 presented to the emergency room with acute alcohol intoxication, initial alcohol level 7-8. Acknowledges over the last 5 months drinking 15 packs a day at 8% alcohol (marcin samaniego). Vital signs 96.6 [id number]/73-98%. Appearance was no acute distress. WBC 7.9-Hgb 13.8-HCT 39.7-PLT 306. NA 130 2L-K3.7-CL 90 6L-CO2 26.0-BUN 20.5H- CRE 0.93-GLU 111 Admitted from ER to detox unit Active problem list: 1. Alcohol dependence: Started on phenobarbital, gabapentin as needed dicyclomine as needed, Vistaril as needed, Imodium as needed, trazodone as needed, Zofran as needed, scheduled thiamine and scheduled folic acid. 2. Tobacco abuse: Nicotine patch prescribed, tobacco withheld. 3. Marijuana abuse: Counseled 4. Anxiety depression, PTSD: Continue home medications 5. COPD with home oxygen use: Stable, continue supplements duration O2 with continuous pulse oximetry per patient. 6. Hyponatremia chronic: Stable 7 DVT risk low: Encourage ambulation. Mild protein-calorie malnutrition 08/26/2020 11/12/2021 Encounter for support and coordination of transi tion of care 05/15/2020 05/02/2021 Overview: HOSPITAL/ER FOLLOW UP Which facility: [facility] Dates of visit: 05/10-05/13/2020 Preadmission evaluation: ER with right-sided abdominal pain over 2-1/2 hours, 10 out of 10. Worse with coughing. States she vomited 20 times the day before, with episodes of diarrhea over the past 2 days. Had used Imodium which improved diarrhea. No known exposures to Covid. Also identified chest pain which started approximately 2:00 that afternoon. Subjective fever and chills, chronic cough that is unchanged. Patient was afebrile with temp of 99.4 Fahrenheit, heart rate of 95, blood pressure 147/92. O2 saturation 94% but patient was started on O2 at 2 L per nasal cannula abdominal exam with severe tenderness over epigastric and right upper quadrant and right lower quadrant. No distention. CBC showed white count of 15.2 with neutrophils of 70. Hemoglobin 14.9, platelet 227, CMP within normal limits except for sodium of 134, glucose 107, total bili 1.5, AST and ALT 5 5/277, alk phos 122, troponin negative. Lipase 170. Covid rapid test negative. Ethanol 64. Chest x-ray with generalized hyperinflation, no acute findings. CT of abdomen pelvis without contrast demonstrated severe fatty liver, mild hepatomegaly, normal gallbladder, exophytic isodense nodule on the lower pole of the right kidney, mild bilateral fatty groin hernia. Appendix considered normal. Ultrasound of gallbladder demonstrated partially distended gallbladder with a positive sonographic Kennedy sign, no gallstones. Also identified mild perihepatic ascites. In ER patient was given IV Zofran, morphine 4 mg x 2 IV, Ativan 1 mg IV x1. Primary Diagnosis/es: Acute cholecystitis Elevated LFTs Secondary Diagnosis/es: Anxiety depression Hyperlipidemia Chronic tobacco use Chronic alcohol abuse SANA Hypothyroidism COPD with emphysema Chronic back pain PTSD Chronic anemia unknown etiology Gastroesophageal reflux disease Pulmonary embolus Consultants: Surgery: Dr. Gaye Gordon testing done: ----- -Labwork: See above 05/13/2020 WBC 8.9, hemoglobin 11.4, hematocrit 36.8, elevated indices, RDW of 51.0, platelet count 171, absolute neutrophil count elevated at 7.8. Electrolytes all within normal limits except anion gap of 2, BUN of 2, creatinine 0.68 with estimated GFR of 97. Glucose 148, calcium 8.2. Bilirubin normal, AST 162, ALT 139, alk phosphatase 81 normal, total protein and albumin low 6.3, 2.1 respectively ----- -Imaging: As above 05/12/2020 hepatobiliary scan nuclear medicine: No scintigraphic evidence of cholecystitis or biliary obstruction ----- -Cardiac: ----- -Other: ----- Procedures/ Surgery: Surgery: Laparoscopic cholecystectomy with surgical findings of thickened gallbladder wall with areas of gangrene, enlarged liver with fatty infiltration ascites Hospital course: As above patient was admitted, IV fluid, pain management, taken to surgery. Patient had successful recovery and discharged in a stable condition. Instructions were to return to activity but no driving while taking narcotic medication Medication Reconciliation: Completed Patient was given oxycodone 5 mg every 12 hours #10 documented as of this encounter (statuses as of 09/01/2022) [facility]11-13-2021 History of Past illness Narrative* Problem Noted Date Resolved Date Encounter for support and coordination of transi tion of care 05/02/2021 07/23/2021 Overview: Hospital discharge summary: Date of admission 05/01/2021 Date of discharge: Facility: [facility] 05/01/2021 presented to the emergency room with acute alcohol intoxication, initial alcohol level 7-8. Acknowledges over the last 5 months drinking 15 packs a day at 8% alcohol (marcin samaniego). Vital signs 96.6 [id number]/73-98%. Appearance was no acute distress. WBC 7.9-Hgb 13.8-HCT 39.7-PLT 306. NA 130 2L-K3.7-CL 90 6L-CO2 26.0-BUN 20.5H- CRE 0.93-GLU 111 Admitted from ER to detox unit Active problem list: 1. Alcohol dependence: Started on phenobarbital, gabapentin as needed dicyclomine as needed, Vistaril as needed, Imodium as needed, trazodone as needed, Zofran as needed, scheduled thiamine and scheduled folic acid. 2. Tobacco abuse: Nicotine patch prescribed, tobacco withheld. 3. Marijuana abuse: Counseled 4. Anxiety depression, PTSD: Continue home medications 5. COPD with home oxygen use: Stable, continue supplements duration O2 with continuous pulse oximetry per patient. 6. Hyponatremia chronic: Stable 7 DVT risk low: Encourage ambulation. Mild protein-calorie malnutrition 08/26/2020 11/12/2021 Encounter for support and coordination of transi tion of care 05/15/2020 05/02/2021 Overview: HOSPITAL/ER FOLLOW UP Which facility: [facility] Dates of visit: 05/10-05/13/2020 Preadmission evaluation: ER with right-sided abdominal pain over 2-1/2 hours, 10 out of 10. Worse with coughing. States she vomited 20 times the day before, with episodes of diarrhea over the past 2 days. Had used Imodium which improved diarrhea. No known exposures to Covid. Also identified chest pain which started approximately 2:00 that afternoon. Subjective fever and chills, chronic cough that is unchanged. Patient was afebrile with temp of 99.4 Fahrenheit, heart rate of 95, blood pressure 147/92. O2 saturation 94% but patient was started on O2 at 2 L per nasal cannula abdominal exam with severe tenderness over epigastric and right upper quadrant and right lower quadrant. No distention. CBC showed white count of 15.2 with neutrophils of 70. Hemoglobin 14.9, platelet 227, CMP within normal limits except for sodium of 134, glucose 107, total bili 1.5, AST and ALT 5 /277, alk phos 122, troponin negative. Lipase 170. Covid rapid test negative. Ethanol 64. Chest x-ray with generalized hyperinflation, no acute findings. CT of abdomen pelvis without contrast demonstrated severe fatty liver, mild hepatomegaly, normal gallbladder, exophytic isodense nodule on the lower pole of the right kidney, mild bilateral fatty groin hernia. Appendix considered normal. Ultrasound of gallbladder demonstrated partially distended gallbladder with a positive sonographic Kennedy sign, no gallstones. Also identified mild perihepatic ascites. In ER patient was given IV Zofran, morphine 4 mg x 2 IV, Ativan 1 mg IV x1. Primary Diagnosis/es: Acute cholecystitis Elevated LFTs Secondary Diagnosis/es: Anxiety depression Hyperlipidemia Chronic tobacco use Chronic alcohol abuse SANA Hypothyroidism COPD with emphysema Chronic back pain PTSD Chronic anemia unknown etiology Gastroesophageal reflux disease Pulmonary embolus Consultants: Surgery: Dr. Gaye Gordon testing done: ----- -Labwork: See above 05/13/2020 WBC 8.9, hemoglobin 11.4, hematocrit 36.8, elevated indices, RDW of 51.0, platelet count 171, absolute neutrophil count elevated at 7.8. Electrolytes all within normal limits except anion gap of 2, BUN of 2, creatinine 0.68 with estimated GFR of 97. Glucose 148, calcium 8.2. Bilirubin normal, AST 162, ALT 139, alk phosphatase 81 normal, total protein and albumin low 6.3, 2.1 respectively ----- -Imaging: As above 05/12/2020 hepatobiliary scan nuclear medicine: No scintigraphic evidence of cholecystitis or biliary obstruction ----- -Cardiac: ----- -Other: ----- Procedures/ Surgery: Surgery: Laparoscopic cholecystectomy with surgical findings of thickened gallbladder wall with areas of gangrene, enlarged liver with fatty infiltration ascites Hospital course: As above patient was admitted, IV fluid, pain management, taken to surgery. Patient had successful recovery and discharged in a stable condition. Instructions were to return to activity but no driving while taking narcotic medication Medication Reconciliation: Completed Patient was given oxycodone 5 mg every 12 hours #10 documented as of this encounter (statuses as of 09/16/2022) [facility]11-13-2021 History of Past illness Narrative* Problem Noted Date Resolved Date Encounter for support and coordination of transi tion of care 05/02/2021 07/23/2021 Overview: Hospital discharge summary: Date of admission 05/01/2021 Date of discharge: Facility: [facility] 05/01/2021 presented to the emergency room with acute alcohol intoxication, initial alcohol level 7-8. Acknowledges over the last 5 months drinking 15 packs a day at 8% alcohol (nataidan samaniego). Vital signs 96.6 [id number]/73-98%. Appearance was no acute distress. WBC 7.9-Hgb 13.8-HCT 39.7-PLT 306. NA 130 2L-K3.7-CL 90 6L-CO2 26.0-BUN 20.5H- CRE 0.93-GLU 111 Admitted from ER to detox unit Active problem list: 1. Alcohol dependence: Started on phenobarbital, gabapentin as needed dicyclomine as needed, Vistaril as needed, Imodium as needed, trazodone as needed, Zofran as needed, scheduled thiamine and scheduled folic acid. 2. Tobacco abuse: Nicotine patch prescribed, tobacco withheld. 3. Marijuana abuse: Counseled 4. Anxiety depression, PTSD: Continue home medications 5. COPD with home oxygen use: Stable, continue supplements duration O2 with continuous pulse oximetry per patient. 6. Hyponatremia chronic: Stable 7 DVT risk low: Encourage ambulation. Mild protein-calorie malnutrition 08/26/2020 11/12/2021 Encounter for support and coordination of transi tion of care 05/15/2020 05/02/2021 Overview: HOSPITAL/ER FOLLOW UP Which facility: [facility] Dates of visit: 05/10-05/13/2020 Preadmission evaluation: ER with right-sided abdominal pain over 2-1/2 hours, 10 out of 10. Worse with coughing. States she vomited 20 times the day before, with episodes of diarrhea over the past 2 days. Had used Imodium which improved diarrhea. No known exposures to Covid. Also identified chest pain which started approximately 2:00 that afternoon. Subjective fever and chills, chronic cough that is unchanged. Patient was afebrile with temp of 99.4 Fahrenheit, heart rate of 95, blood pressure 147/92. O2 saturation 94% but patient was started on O2 at 2 L per nasal cannula abdominal exam with severe tenderness over epigastric and right upper quadrant and right lower quadrant. No distention. CBC showed white count of 15.2 with neutrophils of 70. Hemoglobin 14.9, platelet 227, CMP within normal limits except for sodium of 134, glucose 107, total bili 1.5, AST and ALT 5 5/277, alk phos 122, troponin negative. Lipase 170. Covid rapid test negative. Ethanol 64. Chest x-ray with generalized hyperinflation, no acute findings. CT of abdomen pelvis without contrast demonstrated severe fatty liver, mild hepatomegaly, normal gallbladder, exophytic isodense nodule on the lower pole of the right kidney, mild bilateral fatty groin hernia. Appendix considered normal. Ultrasound of gallbladder demonstrated partially distended gallbladder with a positive sonographic Kennedy sign, no gallstones. Also identified mild perihepatic ascites. In ER patient was given IV Zofran, morphine 4 mg x 2 IV, Ativan 1 mg IV x1. Primary Diagnosis/es: Acute cholecystitis Elevated LFTs Secondary Diagnosis/es: Anxiety depression Hyperlipidemia Chronic tobacco use Chronic alcohol abuse SANA Hypothyroidism COPD with emphysema Chronic back pain PTSD Chronic anemia unknown etiology Gastroesophageal reflux disease Pulmonary embolus Consultants: Surgery: Dr. Gaye Gordon testing done: ----- -Labwork: See above 05/13/2020 WBC 8.9, hemoglobin 11.4, hematocrit 36.8, elevated indices, RDW of 51.0, platelet count 171, absolute neutrophil count elevated at 7.8. Electrolytes all within normal limits except anion gap of 2, BUN of 2, creatinine 0.68 with estimated GFR of 97. Glucose 148, calcium 8.2. Bilirubin normal, AST 162, ALT 139, alk phosphatase 81 normal, total protein and albumin low 6.3, 2.1 respectively ----- -Imaging: As above 05/12/2020 hepatobiliary scan nuclear medicine: No scintigraphic evidence of cholecystitis or biliary obstruction ----- -Cardiac: ----- -Other: ----- Procedures/ Surgery: Surgery: Laparoscopic cholecystectomy with surgical findings of thickened gallbladder wall with areas of gangrene, enlarged liver with fatty infiltration ascites Hospital course: As above patient was admitted, IV fluid, pain management, taken to surgery. Patient had successful recovery and discharged in a stable condition. Instructions were to return to activity but no driving while taking narcotic medication Medication Reconciliation: Completed Patient was given oxycodone 5 mg every 12 hours #10 documented as of this encounter (statuses as of 10/09/2022) [facility]11-13-2021 History of Past illness Narrative* Problem Noted Date Resolved Date Encounter for support and coordination of transi tion of care 05/02/2021 07/23/2021 Overview: Hospital discharge summary: Date of admission 05/01/2021 Date of discharge: Facility: [facility] 05/01/2021 presented to the emergency room with acute alcohol intoxication, initial alcohol level 7-8. Acknowledges over the last 5 months drinking 15 packs a day at 8% alcohol (marcin samaniego). Vital signs 96.6 [id number]-78-18-111/73-98%. Appearance was no acute distress. WBC 7.9-Hgb 13.8-HCT 39.7-PLT 306. NA 130 2L-K3.7-CL 90 6L-CO2 26.0-BUN 20.5H- CRE 0.93-GLU 111 Admitted from ER to detox unit Active problem list: 1. Alcohol dependence: Started on phenobarbital, gabapentin as needed dicyclomine as needed, Vistaril as needed, Imodium as needed, trazodone as needed, Zofran as needed, scheduled thiamine and scheduled folic acid. 2. Tobacco abuse: Nicotine patch prescribed, tobacco withheld. 3. Marijuana abuse: Counseled 4. Anxiety depression, PTSD: Continue home medications 5. COPD with home oxygen use: Stable, continue supplements duration O2 with continuous pulse oximetry per patient. 6. Hyponatremia chronic: Stable 7 DVT risk low: Encourage ambulation. Mild protein-calorie malnutrition 08/26/2020 11/12/2021 Encounter for support and coordination of transi tion of care 05/15/2020 05/02/2021 Overview: HOSPITAL/ER FOLLOW UP Which facility: [facility] Dates of visit: 05/10-05/13/2020 Preadmission evaluation: ER with right-sided abdominal pain over 2-1/2 hours, 10 out of 10. Worse with coughing. States she vomited 20 times the day before, with episodes of diarrhea over the past 2 days. Had used Imodium which improved diarrhea. No known exposures to Covid. Also identified chest pain which started approximately 2:00 that afternoon. Subjective fever and chills, chronic cough that is unchanged. Patient was afebrile with temp of 99.4 Fahrenheit, heart rate of 95, blood pressure 147/92. O2 saturation 94% but patient was started on O2 at 2 L per nasal cannula abdominal exam with severe tenderness over epigastric and right upper quadrant and right lower quadrant. No distention. CBC showed white count of 15.2 with neutrophils of 70. Hemoglobin 14.9, platelet 227, CMP within normal limits except for sodium of 134, glucose 107, total bili 1.5, AST and ALT 5 5/277, alk phos 122, troponin negative. Lipase 170. Covid rapid test negative. Ethanol 64. Chest x-ray with generalized hyperinflation, no acute findings. CT of abdomen pelvis without contrast demonstrated severe fatty liver, mild hepatomegaly, normal gallbladder, exophytic isodense nodule on the lower pole of the right kidney, mild bilateral fatty groin hernia. Appendix considered normal. Ultrasound of gallbladder demonstrated partially distended gallbladder with a positive sonographic Kennedy sign, no gallstones. Also identified mild perihepatic ascites. In ER patient was given IV Zofran, morphine 4 mg x 2 IV, Ativan 1 mg IV x1. Primary Diagnosis/es: Acute cholecystitis Elevated LFTs Secondary Diagnosis/es: Anxiety depression Hyperlipidemia Chronic tobacco use Chronic alcohol abuse SANA Hypothyroidism COPD with emphysema Chronic back pain PTSD Chronic anemia unknown etiology Gastroesophageal reflux disease Pulmonary embolus Consultants: Surgery: Dr. Gaye Gordon testing done: ----- -Labwork: See above 05/13/2020 WBC 8.9, hemoglobin 11.4, hematocrit 36.8, elevated indices, RDW of 51.0, platelet count 171, absolute neutrophil count elevated at 7.8. Electrolytes all within normal limits except anion gap of 2, BUN of 2, creatinine 0.68 with estimated GFR of 97. Glucose 148, calcium 8.2. Bilirubin normal, AST 162, ALT 139, alk phosphatase 81 normal, total protein and albumin low 6.3, 2.1 respectively ----- -Imaging: As above 05/12/2020 hepatobiliary scan nuclear medicine: No scintigraphic evidence of cholecystitis or biliary obstruction ----- -Cardiac: ----- -Other: ----- Procedures/ Surgery: Surgery: Laparoscopic cholecystectomy with surgical findings of thickened gallbladder wall with areas of gangrene, enlarged liver with fatty infiltration ascites Hospital course: As above patient was admitted, IV fluid, pain management, taken to surgery. Patient had successful recovery and discharged in a stable condition. Instructions were to return to activity but no driving while taking narcotic medication Medication Reconciliation: Completed Patient was given oxycodone 5 mg every 12 hours #10 documented as of this encounter (statuses as of 10/14/2022) [facility]11-13-2021 History of Past illness Narrative* Problem Noted Date Resolved Date Encounter for support and coordination of transi tion of care 05/02/2021 07/23/2021 Overview: Hospital discharge summary: Date of admission 05/01/2021 Date of discharge: Facility: [facility] 05/01/2021 presented to the emergency room with acute alcohol intoxication, initial alcohol level 7-8. Acknowledges over the last 5 months drinking 15 packs a day at 8% alcohol (marcin samaniego). Vital signs 96.6 F-78-18-111/73-98%. Appearance was no acute distress. WBC 7.9-Hgb 13.8-HCT 39.7-PLT 306. NA 130 2L-K3.7-CL 90 6L-CO2 26.0-BUN 20.5H- CRE 0.93-GLU 111 Admitted from ER to detox unit Active problem list: 1. Alcohol dependence: Started on phenobarbital, gabapentin as needed dicyclomine as needed, Vistaril as needed, Imodium as needed, trazodone as needed, Zofran as needed, scheduled thiamine and scheduled folic acid. 2. Tobacco abuse: Nicotine patch prescribed, tobacco withheld. 3. Marijuana abuse: Counseled 4. Anxiety depression, PTSD: Continue home medications 5. COPD with home oxygen use: Stable, continue supplements duration O2 with continuous pulse oximetry per patient. 6. Hyponatremia chronic: Stable 7 DVT risk low: Encourage ambulation. Mild protein-calorie malnutrition 08/26/2020 11/12/2021 Encounter for support and coordination of transi tion of care 05/15/2020 05/02/2021 Overview: HOSPITAL/ER FOLLOW UP Which facility: [facility] Dates of visit: 05/10-05/13/2020 Preadmission evaluation: ER with right-sided abdominal pain over 2-1/2 hours, 10 out of 10. Worse with coughing. States she vomited 20 times the day before, with episodes of diarrhea over the past 2 days. Had used Imodium which improved diarrhea. No known exposures to Covid. Also identified chest pain which started approximately 2:00 that afternoon. Subjective fever and chills, chronic cough that is unchanged. Patient was afebrile with temp of 99.4 Fahrenheit, heart rate of 95, blood pressure 147/92. O2 saturation 94% but patient was started on O2 at 2 L per nasal cannula abdominal exam with severe tenderness over epigastric and right upper quadrant and right lower quadrant. No distention. CBC showed white count of 15.2 with neutrophils of 70. Hemoglobin 14.9, platelet 227, CMP within normal limits except for sodium of 134, glucose 107, total bili 1.5, AST and ALT 5 5/277, alk phos 122, troponin negative. Lipase 170. Covid rapid test negative. Ethanol 64. Chest x-ray with generalized hyperinflation, no acute findings. CT of abdomen pelvis without contrast demonstrated severe fatty liver, mild hepatomegaly, normal gallbladder, exophytic isodense nodule on the lower pole of the right kidney, mild bilateral fatty groin hernia. Appendix considered normal. Ultrasound of gallbladder demonstrated partially distended gallbladder with a positive sonographic Kennedy sign, no gallstones. Also identified mild perihepatic ascites. In ER patient was given IV Zofran, morphine 4 mg x 2 IV, Ativan 1 mg IV x1. Primary Diagnosis/es: Acute cholecystitis Elevated LFTs Secondary Diagnosis/es: Anxiety depression Hyperlipidemia Chronic tobacco use Chronic alcohol abuse SANA Hypothyroidism COPD with emphysema Chronic back pain PTSD Chronic anemia unknown etiology Gastroesophageal reflux disease Pulmonary embolus Consultants: Surgery: Dr. Gaye Godron testing done: ----- -Labwork: See above 05/13/2020 WBC 8.9, hemoglobin 11.4, hematocrit 36.8, elevated indices, RDW of 51.0, platelet count 171, absolute neutrophil count elevated at 7.8. Electrolytes all within normal limits except anion gap of 2, BUN of 2, creatinine 0.68 with estimated GFR of 97. Glucose 148, calcium 8.2. Bilirubin normal, AST 162, ALT 139, alk phosphatase 81 normal, total protein and albumin low 6.3, 2.1 respectively ----- -Imaging: As above 05/12/2020 hepatobiliary scan nuclear medicine: No scintigraphic evidence of cholecystitis or biliary obstruction ----- -Cardiac: ----- -Other: ----- Procedures/ Surgery: Surgery: Laparoscopic cholecystectomy with surgical findings of thickened gallbladder wall with areas of gangrene, enlarged liver with fatty infiltration ascites Hospital course: As above patient was admitted, IV fluid, pain management, taken to surgery. Patient had successful recovery and discharged in a stable condition. Instructions were to return to activity but no driving while taking narcotic medication Medication Reconciliation: Completed Patient was given oxycodone 5 mg every 12 hours #10 documented as of this encounter (statuses as of 10/21/2022) [facility]11-13-2021 History of Past illness Narrative* Problem Noted Date Resolved Date Encounter for support and coordination of transi tion of care 05/02/2021 07/23/2021 Overview: Hospital discharge summary: Date of admission 05/01/2021 Date of discharge: Facility: [facility] 05/01/2021 presented to the emergency room with acute alcohol intoxication, initial alcohol level 7-8. Acknowledges over the last 5 months drinking 15 packs a day at 8% alcohol (nataidan samaniego). Vital signs 96.6 [id number]-78-18-111/73-98%. Appearance was no acute distress. WBC 7.9-Hgb 13.8-HCT 39.7-PLT 306. NA 130 2L-K3.7-CL 90 6L-CO2 26.0-BUN 20.5H- CRE 0.93-GLU 111 Admitted from ER to detox unit Active problem list: 1. Alcohol dependence: Started on phenobarbital, gabapentin as needed dicyclomine as needed, Vistaril as needed, Imodium as needed, trazodone as needed, Zofran as needed, scheduled thiamine and scheduled folic acid. 2. Tobacco abuse: Nicotine patch prescribed, tobacco withheld. 3. Marijuana abuse: Counseled 4. Anxiety depression, PTSD: Continue home medications 5. COPD with home oxygen use: Stable, continue supplements duration O2 with continuous pulse oximetry per patient. 6. Hyponatremia chronic: Stable 7 DVT risk low: Encourage ambulation. Mild protein-calorie malnutrition 08/26/2020 11/12/2021 Encounter for support and coordination of transi tion of care 05/15/2020 05/02/2021 Overview: HOSPITAL/ER FOLLOW UP Which facility: [facility] Dates of visit: 05/10-05/13/2020 Preadmission evaluation: ER with right-sided abdominal pain over 2-1/2 hours, 10 out of 10. Worse with coughing. States she vomited 20 times the day before, with episodes of diarrhea over the past 2 days. Had used Imodium which improved diarrhea. No known exposures to Covid. Also identified chest pain which started approximately 2:00 that afternoon. Subjective fever and chills, chronic cough that is unchanged. Patient was afebrile with temp of 99.4 Fahrenheit, heart rate of 95, blood pressure 147/92. O2 saturation 94% but patient was started on O2 at 2 L per nasal cannula abdominal exam with severe tenderness over epigastric and right upper quadrant and right lower quadrant. No distention. CBC showed white count of 15.2 with neutrophils of 70. Hemoglobin 14.9, platelet 227, CMP within normal limits except for sodium of 134, glucose 107, total bili 1.5, AST and ALT 5 5/277, alk phos 122, troponin negative. Lipase 170. Covid rapid test negative. Ethanol 64. Chest x-ray with generalized hyperinflation, no acute findings. CT of abdomen pelvis without contrast demonstrated severe fatty liver, mild hepatomegaly, normal gallbladder, exophytic isodense nodule on the lower pole of the right kidney, mild bilateral fatty groin hernia. Appendix considered normal. Ultrasound of gallbladder demonstrated partially distended gallbladder with a positive sonographic Kennedy sign, no gallstones. Also identified mild perihepatic ascites. In ER patient was given IV Zofran, morphine 4 mg x 2 IV, Ativan 1 mg IV x1. Primary Diagnosis/es: Acute cholecystitis Elevated LFTs Secondary Diagnosis/es: Anxiety depression Hyperlipidemia Chronic tobacco use Chronic alcohol abuse SANA Hypothyroidism COPD with emphysema Chronic back pain PTSD Chronic anemia unknown etiology Gastroesophageal reflux disease Pulmonary embolus Consultants: Surgery: Dr. Gaye Gordon testing done: ----- -Labwork: See above 05/13/2020 WBC 8.9, hemoglobin 11.4, hematocrit 36.8, elevated indices, RDW of 51.0, platelet count 171, absolute neutrophil count elevated at 7.8. Electrolytes all within normal limits except anion gap of 2, BUN of 2, creatinine 0.68 with estimated GFR of 97. Glucose 148, calcium 8.2. Bilirubin normal, AST 162, ALT 139, alk phosphatase 81 normal, total protein and albumin low 6.3, 2.1 respectively ----- -Imaging: As above 05/12/2020 hepatobiliary scan nuclear medicine: No scintigraphic evidence of cholecystitis or biliary obstruction ----- -Cardiac: ----- -Other: ----- Procedures/ Surgery: Surgery: Laparoscopic cholecystectomy with surgical findings of thickened gallbladder wall with areas of gangrene, enlarged liver with fatty infiltration ascites Hospital course: As above patient was admitted, IV fluid, pain management, taken to surgery. Patient had successful recovery and discharged in a stable condition. Instructions were to return to activity but no driving while taking narcotic medication Medication Reconciliation: Completed Patient was given oxycodone 5 mg every 12 hours #10 documented as of this encounter (statuses as of 10/27/2022) [facility]11-13-2021 History of Past illness Narrative* Problem Noted Date Resolved Date Encounter for support and coordination of transi tion of care 05/02/2021 07/23/2021 Overview: Hospital discharge summary: Date of admission 05/01/2021 Date of discharge: Facility: [facility] 05/01/2021 presented to the emergency room with acute alcohol intoxication, initial alcohol level 7-8. Acknowledges over the last 5 months drinking 15 packs a day at 8% alcohol (marcin samaniego). Vital signs 96.6 [id number]-78-18-111/73-98%. Appearance was no acute distress. WBC 7.9-Hgb 13.8-HCT 39.7-PLT 306. NA 130 2L-K3.7-CL 90 6L-CO2 26.0-BUN 20.5H- CRE 0.93-GLU 111 Admitted from ER to detox unit Active problem list: 1. Alcohol dependence: Started on phenobarbital, gabapentin as needed dicyclomine as needed, Vistaril as needed, Imodium as needed, trazodone as needed, Zofran as needed, scheduled thiamine and scheduled folic acid. 2. Tobacco abuse: Nicotine patch prescribed, tobacco withheld. 3. Marijuana abuse: Counseled 4. Anxiety depression, PTSD: Continue home medications 5. COPD with home oxygen use: Stable, continue supplements duration O2 with continuous pulse oximetry per patient. 6. Hyponatremia chronic: Stable 7 DVT risk low: Encourage ambulation. Mild protein-calorie malnutrition 08/26/2020 11/12/2021 Encounter for support and coordination of transi tion of care 05/15/2020 05/02/2021 Overview: HOSPITAL/ER FOLLOW UP Which facility: [facility] Dates of visit: 05/10-05/13/2020 Preadmission evaluation: ER with right-sided abdominal pain over 2-1/2 hours, 10 out of 10. Worse with coughing. States she vomited 20 times the day before, with episodes of diarrhea over the past 2 days. Had used Imodium which improved diarrhea. No known exposures to Covid. Also identified chest pain which started approximately 2:00 that afternoon. Subjective fever and chills, chronic cough that is unchanged. Patient was afebrile with temp of 99.4 Fahrenheit, heart rate of 95, blood pressure 147/92. O2 saturation 94% but patient was started on O2 at 2 L per nasal cannula abdominal exam with severe tenderness over epigastric and right upper quadrant and right lower quadrant. No distention. CBC showed white count of 15.2 with neutrophils of 70. Hemoglobin 14.9, platelet 227, CMP within normal limits except for sodium of 134, glucose 107, total bili 1.5, AST and ALT 5 5/277, alk phos 122, troponin negative. Lipase 170. Covid rapid test negative. Ethanol 64. Chest x-ray with generalized hyperinflation, no acute findings. CT of abdomen pelvis without contrast demonstrated severe fatty liver, mild hepatomegaly, normal gallbladder, exophytic isodense nodule on the lower pole of the right kidney, mild bilateral fatty groin hernia. Appendix considered normal. Ultrasound of gallbladder demonstrated partially distended gallbladder with a positive sonographic Kennedy sign, no gallstones. Also identified mild perihepatic ascites. In ER patient was given IV Zofran, morphine 4 mg x 2 IV, Ativan 1 mg IV x1. Primary Diagnosis/es: Acute cholecystitis Elevated LFTs Secondary Diagnosis/es: Anxiety depression Hyperlipidemia Chronic tobacco use Chronic alcohol abuse SANA Hypothyroidism COPD with emphysema Chronic back pain PTSD Chronic anemia unknown etiology Gastroesophageal reflux disease Pulmonary embolus Consultants: Surgery: Dr. Gaye Gordon testing done: ----- -Labwork: See above 05/13/2020 WBC 8.9, hemoglobin 11.4, hematocrit 36.8, elevated indices, RDW of 51.0, platelet count 171, absolute neutrophil count elevated at 7.8. Electrolytes all within normal limits except anion gap of 2, BUN of 2, creatinine 0.68 with estimated GFR of 97. Glucose 148, calcium 8.2. Bilirubin normal, AST 162, ALT 139, alk phosphatase 81 normal, total protein and albumin low 6.3, 2.1 respectively ----- -Imaging: As above 05/12/2020 hepatobiliary scan nuclear medicine: No scintigraphic evidence of cholecystitis or biliary obstruction ----- -Cardiac: ----- -Other: ----- Procedures/ Surgery: Surgery: Laparoscopic cholecystectomy with surgical findings of thickened gallbladder wall with areas of gangrene, enlarged liver with fatty infiltration ascites Hospital course: As above patient was admitted, IV fluid, pain management, taken to surgery. Patient had successful recovery and discharged in a stable condition. Instructions were to return to activity but no driving while taking narcotic medication Medication Reconciliation: Completed Patient was given oxycodone 5 mg every 12 hours #10 documented as of this encounter (statuses as of 11/22/2022) [facility]11-13-2021 History of Past illness Narrative* Problem Noted Date Resolved Date Encounter for support and coordination of transi tion of care 05/02/2021 07/23/2021 Overview: Hospital discharge summary: Date of admission 05/01/2021 Date of discharge: Facility: [facility] 05/01/2021 presented to the emergency room with acute alcohol intoxication, initial alcohol level 7-8. Acknowledges over the last 5 months drinking 15 packs a day at 8% alcohol (nataidan samaniego). Vital signs 96.6 F-78-18-111/73-98%. Appearance was no acute distress. WBC 7.9-Hgb 13.8-HCT 39.7-PLT 306. NA 130 2L-K3.7-CL 90 6L-CO2 26.0-BUN 20.5H- CRE 0.93-GLU 111 Admitted from ER to detox unit Active problem list: 1. Alcohol dependence: Started on phenobarbital, gabapentin as needed dicyclomine as needed, Vistaril as needed, Imodium as needed, trazodone as needed, Zofran as needed, scheduled thiamine and scheduled folic acid. 2. Tobacco abuse: Nicotine patch prescribed, tobacco withheld. 3. Marijuana abuse: Counseled 4. Anxiety depression, PTSD: Continue home medications 5. COPD with home oxygen use: Stable, continue supplements duration O2 with continuous pulse oximetry per patient. 6. Hyponatremia chronic: Stable 7 DVT risk low: Encourage ambulation. Mild protein-calorie malnutrition 08/26/2020 11/12/2021 Encounter for support and coordination of transi tion of care 05/15/2020 05/02/2021 Overview: HOSPITAL/ER FOLLOW UP Which facility: [facility] Dates of visit: 05/10-05/13/2020 Preadmission evaluation: ER with right-sided abdominal pain over 2-1/2 hours, 10 out of 10. Worse with coughing. States she vomited 20 times the day before, with episodes of diarrhea over the past 2 days. Had used Imodium which improved diarrhea. No known exposures to Covid. Also identified chest pain which started approximately 2:00 that afternoon. Subjective fever and chills, chronic cough that is unchanged. Patient was afebrile with temp of 99.4 Fahrenheit, heart rate of 95, blood pressure 147/92. O2 saturation 94% but patient was started on O2 at 2 L per nasal cannula abdominal exam with severe tenderness over epigastric and right upper quadrant and right lower quadrant. No distention. CBC showed white count of 15.2 with neutrophils of 70. Hemoglobin 14.9, platelet 227, CMP within normal limits except for sodium of 134, glucose 107, total bili 1.5, AST and ALT 5 5/277, alk phos 122, troponin negative. Lipase 170. Covid rapid test negative. Ethanol 64. Chest x-ray with generalized hyperinflation, no acute findings. CT of abdomen pelvis without contrast demonstrated severe fatty liver, mild hepatomegaly, normal gallbladder, exophytic isodense nodule on the lower pole of the right kidney, mild bilateral fatty groin hernia. Appendix considered normal. Ultrasound of gallbladder demonstrated partially distended gallbladder with a positive sonographic Kennedy sign, no gallstones. Also identified mild perihepatic ascites. In ER patient was given IV Zofran, morphine 4 mg x 2 IV, Ativan 1 mg IV x1. Primary Diagnosis/es: Acute cholecystitis Elevated LFTs Secondary Diagnosis/es: Anxiety depression Hyperlipidemia Chronic tobacco use Chronic alcohol abuse SANA Hypothyroidism COPD with emphysema Chronic back pain PTSD Chronic anemia unknown etiology Gastroesophageal reflux disease Pulmonary embolus Consultants: Surgery: Dr. Gaye Gordon testing done: ----- -Labwork: See above 05/13/2020 WBC 8.9, hemoglobin 11.4, hematocrit 36.8, elevated indices, RDW of 51.0, platelet count 171, absolute neutrophil count elevated at 7.8. Electrolytes all within normal limits except anion gap of 2, BUN of 2, creatinine 0.68 with estimated GFR of 97. Glucose 148, calcium 8.2. Bilirubin normal, AST 162, ALT 139, alk phosphatase 81 normal, total protein and albumin low 6.3, 2.1 respectively ----- -Imaging: As above 05/12/2020 hepatobiliary scan nuclear medicine: No scintigraphic evidence of cholecystitis or biliary obstruction ----- -Cardiac: ----- -Other: ----- Procedures/ Surgery: Surgery: Laparoscopic cholecystectomy with surgical findings of thickened gallbladder wall with areas of gangrene, enlarged liver with fatty infiltration ascites Hospital course: As above patient was admitted, IV fluid, pain management, taken to surgery. Patient had successful recovery and discharged in a stable condition. Instructions were to return to activity but no driving while taking narcotic medication Medication Reconciliation: Completed Patient was given oxycodone 5 mg every 12 hours #10 documented as of this encounter (statuses as of 11/23/2022) [facility]11-13-2021 History of Past illness Narrative* Problem Noted Date Resolved Date Encounter for support and coordination of transi tion of care 05/02/2021 07/23/2021 Overview: Hospital discharge summary: Date of admission 05/01/2021 Date of discharge: Facility: [facility] 05/01/2021 presented to the emergency room with acute alcohol intoxication, initial alcohol level 7-8. Acknowledges over the last 5 months drinking 15 packs a day at 8% alcohol (nataidan samaniego). Vital signs 96.6 F-78-18-111/73-98%. Appearance was no acute distress. WBC 7.9-Hgb 13.8-HCT 39.7-PLT 306. NA 130 2L-K3.7-CL 90 6L-CO2 26.0-BUN 20.5H- CRE 0.93-GLU 111 Admitted from ER to detox unit Active problem list: 1. Alcohol dependence: Started on phenobarbital, gabapentin as needed dicyclomine as needed, Vistaril as needed, Imodium as needed, trazodone as needed, Zofran as needed, scheduled thiamine and scheduled folic acid. 2. Tobacco abuse: Nicotine patch prescribed, tobacco withheld. 3. Marijuana abuse: Counseled 4. Anxiety depression, PTSD: Continue home medications 5. COPD with home oxygen use: Stable, continue supplements duration O2 with continuous pulse oximetry per patient. 6. Hyponatremia chronic: Stable 7 DVT risk low: Encourage ambulation. Mild protein-calorie malnutrition 08/26/2020 11/12/2021 Encounter for support and coordination of transi tion of care 05/15/2020 05/02/2021 Overview: HOSPITAL/ER FOLLOW UP Which facility: [facility] Dates of visit: 05/10-05/13/2020 Preadmission evaluation: ER with right-sided abdominal pain over 2-1/2 hours, 10 out of 10. Worse with coughing. States she vomited 20 times the day before, with episodes of diarrhea over the past 2 days. Had used Imodium which improved diarrhea. No known exposures to Covid. Also identified chest pain which started approximately 2:00 that afternoon. Subjective fever and chills, chronic cough that is unchanged. Patient was afebrile with temp of 99.4 Fahrenheit, heart rate of 95, blood pressure 147/92. O2 saturation 94% but patient was started on O2 at 2 L per nasal cannula abdominal exam with severe tenderness over epigastric and right upper quadrant and right lower quadrant. No distention. CBC showed white count of 15.2 with neutrophils of 70. Hemoglobin 14.9, platelet 227, CMP within normal limits except for sodium of 134, glucose 107, total bili 1.5, AST and ALT 5 5/277, alk phos 122, troponin negative. Lipase 170. Covid rapid test negative. Ethanol 64. Chest x-ray with generalized hyperinflation, no acute findings. CT of abdomen pelvis without contrast demonstrated severe fatty liver, mild hepatomegaly, normal gallbladder, exophytic isodense nodule on the lower pole of the right kidney, mild bilateral fatty groin hernia. Appendix considered normal. Ultrasound of gallbladder demonstrated partially distended gallbladder with a positive sonographic Kennedy sign, no gallstones. Also identified mild perihepatic ascites. In ER patient was given IV Zofran, morphine 4 mg x 2 IV, Ativan 1 mg IV x1. Primary Diagnosis/es: Acute cholecystitis Elevated LFTs Secondary Diagnosis/es: Anxiety depression Hyperlipidemia Chronic tobacco use Chronic alcohol abuse SANA Hypothyroidism COPD with emphysema Chronic back pain PTSD Chronic anemia unknown etiology Gastroesophageal reflux disease Pulmonary embolus Consultants: Surgery: Dr. Gaye Gordon testing done: ----- -Labwork: See above 05/13/2020 WBC 8.9, hemoglobin 11.4, hematocrit 36.8, elevated indices, RDW of 51.0, platelet count 171, absolute neutrophil count elevated at 7.8. Electrolytes all within normal limits except anion gap of 2, BUN of 2, creatinine 0.68 with estimated GFR of 97. Glucose 148, calcium 8.2. Bilirubin normal, AST 162, ALT 139, alk phosphatase 81 normal, total protein and albumin low 6.3, 2.1 respectively ----- -Imaging: As above 05/12/2020 hepatobiliary scan nuclear medicine: No scintigraphic evidence of cholecystitis or biliary obstruction ----- -Cardiac: ----- -Other: ----- Procedures/ Surgery: Surgery: Laparoscopic cholecystectomy with surgical findings of thickened gallbladder wall with areas of gangrene, enlarged liver with fatty infiltration ascites Hospital course: As above patient was admitted, IV fluid, pain management, taken to surgery. Patient had successful recovery and discharged in a stable condition. Instructions were to return to activity but no driving while taking narcotic medication Medication Reconciliation: Completed Patient was given oxycodone 5 mg every 12 hours #10 documented as of this encounter (statuses as of 12/10/2022) [facility]-13-2021 History of Past illness Narrative* Problem Noted Date Resolved Date Encounter for support and coordination of transi tion of care 05/02/2021 07/23/2021 Overview: Hospital discharge summary: Date of admission 05/01/2021 Date of discharge: Facility: [facility] 05/01/2021 presented to the emergency room with acute alcohol intoxication, initial alcohol level 7-8. Acknowledges over the last 5 months drinking 15 packs a day at 8% alcohol (marcin samaniego). Vital signs 96.6 F-78-18-111/73-98%. Appearance was no acute distress. WBC 7.9-Hgb 13.8-HCT 39.7-PLT 306. NA 130 2L-K3.7-CL 90 6L-CO2 26.0-BUN 20.5H- CRE 0.93-GLU 111 Admitted from ER to detox unit Active problem list: 1. Alcohol dependence: Started on phenobarbital, gabapentin as needed dicyclomine as needed, Vistaril as needed, Imodium as needed, trazodone as needed, Zofran as needed, scheduled thiamine and scheduled folic acid. 2. Tobacco abuse: Nicotine patch prescribed, tobacco withheld. 3. Marijuana abuse: Counseled 4. Anxiety depression, PTSD: Continue home medications 5. COPD with home oxygen use: Stable, continue supplements duration O2 with continuous pulse oximetry per patient. 6. Hyponatremia chronic: Stable 7 DVT risk low: Encourage ambulation. Mild protein-calorie malnutrition 08/26/2020 11/12/2021 Encounter for support and coordination of transi tion of care 05/15/2020 05/02/2021 Overview: HOSPITAL/ER FOLLOW UP Which facility: [facility] Dates of visit: 05/10-05/13/2020 Preadmission evaluation: ER with right-sided abdominal pain over 2-1/2 hours, 10 out of 10. Worse with coughing. States she vomited 20 times the day before, with episodes of diarrhea over the past 2 days. Had used Imodium which improved diarrhea. No known exposures to Covid. Also identified chest pain which started approximately 2:00 that afternoon. Subjective fever and chills, chronic cough that is unchanged. Patient was afebrile with temp of 99.4 Fahrenheit, heart rate of 95, blood pressure 147/92. O2 saturation 94% but patient was started on O2 at 2 L per nasal cannula abdominal exam with severe tenderness over epigastric and right upper quadrant and right lower quadrant. No distention. CBC showed white count of 15.2 with neutrophils of 70. Hemoglobin 14.9, platelet 227, CMP within normal limits except for sodium of 134, glucose 107, total bili 1.5, AST and ALT 5 /277, alk phos 122, troponin negative. Lipase 170. Covid rapid test negative. Ethanol 64. Chest x-ray with generalized hyperinflation, no acute findings. CT of abdomen pelvis without contrast demonstrated severe fatty liver, mild hepatomegaly, normal gallbladder, exophytic isodense nodule on the lower pole of the right kidney, mild bilateral fatty groin hernia. Appendix considered normal. Ultrasound of gallbladder demonstrated partially distended gallbladder with a positive sonographic Kennedy sign, no gallstones. Also identified mild perihepatic ascites. In ER patient was given IV Zofran, morphine 4 mg x 2 IV, Ativan 1 mg IV x1. Primary Diagnosis/es: Acute cholecystitis Elevated LFTs Secondary Diagnosis/es: Anxiety depression Hyperlipidemia Chronic tobacco use Chronic alcohol abuse SANA Hypothyroidism COPD with emphysema Chronic back pain PTSD Chronic anemia unknown etiology Gastroesophageal reflux disease Pulmonary embolus Consultants: Surgery: Dr. Gaye Gordon testing done: ----- -Labwork: See above 05/13/2020 WBC 8.9, hemoglobin 11.4, hematocrit 36.8, elevated indices, RDW of 51.0, platelet count 171, absolute neutrophil count elevated at 7.8. Electrolytes all within normal limits except anion gap of 2, BUN of 2, creatinine 0.68 with estimated GFR of 97. Glucose 148, calcium 8.2. Bilirubin normal, AST 162, ALT 139, alk phosphatase 81 normal, total protein and albumin low 6.3, 2.1 respectively ----- -Imaging: As above 05/12/2020 hepatobiliary scan nuclear medicine: No scintigraphic evidence of cholecystitis or biliary obstruction ----- -Cardiac: ----- -Other: ----- Procedures/ Surgery: Surgery: Laparoscopic cholecystectomy with surgical findings of thickened gallbladder wall with areas of gangrene, enlarged liver with fatty infiltration ascites Hospital course: As above patient was admitted, IV fluid, pain management, taken to surgery. Patient had successful recovery and discharged in a stable condition. Instructions were to return to activity but no driving while taking narcotic medication Medication Reconciliation: Completed Patient was given oxycodone 5 mg every 12 hours #10 documented as of this encounter (statuses as of 12/10/2022) [facility]11-13-2021 History of Past illness Narrative* Problem Noted Date Resolved Date Encounter for support and coordination of transi tion of care 05/02/2021 07/23/2021 Overview: Hospital discharge summary: Date of admission 05/01/2021 Date of discharge: Facility: [facility] 05/01/2021 presented to the emergency room with acute alcohol intoxication, initial alcohol level 7-8. Acknowledges over the last 5 months drinking 15 packs a day at 8% alcohol (marcin samaniego). Vital signs 96.6 [id number]-78-18-111/73-98%. Appearance was no acute distress. WBC 7.9-Hgb 13.8-HCT 39.7-PLT 306. NA 130 2L-K3.7-CL 90 6L-CO2 26.0-BUN 20.5H- CRE 0.93-GLU 111 Admitted from ER to detox unit Active problem list: 1. Alcohol dependence: Started on phenobarbital, gabapentin as needed dicyclomine as needed, Vistaril as needed, Imodium as needed, trazodone as needed, Zofran as needed, scheduled thiamine and scheduled folic acid. 2. Tobacco abuse: Nicotine patch prescribed, tobacco withheld. 3. Marijuana abuse: Counseled 4. Anxiety depression, PTSD: Continue home medications 5. COPD with home oxygen use: Stable, continue supplements duration O2 with continuous pulse oximetry per patient. 6. Hyponatremia chronic: Stable 7 DVT risk low: Encourage ambulation. Mild protein-calorie malnutrition 08/26/2020 11/12/2021 Encounter for support and coordination of transi tion of care 05/15/2020 05/02/2021 Overview: HOSPITAL/ER FOLLOW UP Which facility: [facility] Dates of visit: 05/10-05/13/2020 Preadmission evaluation: ER with right-sided abdominal pain over 2-1/2 hours, 10 out of 10. Worse with coughing. States she vomited 20 times the day before, with episodes of diarrhea over the past 2 days. Had used Imodium which improved diarrhea. No known exposures to Covid. Also identified chest pain which started approximately 2:00 that afternoon. Subjective fever and chills, chronic cough that is unchanged. Patient was afebrile with temp of 99.4 Fahrenheit, heart rate of 95, blood pressure 147/92. O2 saturation 94% but patient was started on O2 at 2 L per nasal cannula abdominal exam with severe tenderness over epigastric and right upper quadrant and right lower quadrant. No distention. CBC showed white count of 15.2 with neutrophils of 70. Hemoglobin 14.9, platelet 227, CMP within normal limits except for sodium of 134, glucose 107, total bili 1.5, AST and ALT 5 5/277, alk phos 122, troponin negative. Lipase 170. Covid rapid test negative. Ethanol 64. Chest x-ray with generalized hyperinflation, no acute findings. CT of abdomen pelvis without contrast demonstrated severe fatty liver, mild hepatomegaly, normal gallbladder, exophytic isodense nodule on the lower pole of the right kidney, mild bilateral fatty groin hernia. Appendix considered normal. Ultrasound of gallbladder demonstrated partially distended gallbladder with a positive sonographic Kennedy sign, no gallstones. Also identified mild perihepatic ascites. In ER patient was given IV Zofran, morphine 4 mg x 2 IV, Ativan 1 mg IV x1. Primary Diagnosis/es: Acute cholecystitis Elevated LFTs Secondary Diagnosis/es: Anxiety depression Hyperlipidemia Chronic tobacco use Chronic alcohol abuse SANA Hypothyroidism COPD with emphysema Chronic back pain PTSD Chronic anemia unknown etiology Gastroesophageal reflux disease Pulmonary embolus Consultants: Surgery: Dr. Gaye Gordon testing done: ----- -Labwork: See above 05/13/2020 WBC 8.9, hemoglobin 11.4, hematocrit 36.8, elevated indices, RDW of 51.0, platelet count 171, absolute neutrophil count elevated at 7.8. Electrolytes all within normal limits except anion gap of 2, BUN of 2, creatinine 0.68 with estimated GFR of 97. Glucose 148, calcium 8.2. Bilirubin normal, AST 162, ALT 139, alk phosphatase 81 normal, total protein and albumin low 6.3, 2.1 respectively ----- -Imaging: As above 05/12/2020 hepatobiliary scan nuclear medicine: No scintigraphic evidence of cholecystitis or biliary obstruction ----- -Cardiac: ----- -Other: ----- Procedures/ Surgery: Surgery: Laparoscopic cholecystectomy with surgical findings of thickened gallbladder wall with areas of gangrene, enlarged liver with fatty infiltration ascites Hospital course: As above patient was admitted, IV fluid, pain management, taken to surgery. Patient had successful recovery and discharged in a stable condition. Instructions were to return to activity but no driving while taking narcotic medication Medication Reconciliation: Completed Patient was given oxycodone 5 mg every 12 hours #10 documented as of this encounter (statuses as of 12/10/2022) [facility]11-13-2021 History of Past illness Narrative* Problem Noted Date Resolved Date Encounter for support and coordination of transi tion of care 05/02/2021 07/23/2021 Overview: Hospital discharge summary: Date of admission 05/01/2021 Date of discharge: Facility: [facility] 05/01/2021 presented to the emergency room with acute alcohol intoxication, initial alcohol level 7-8. Acknowledges over the last 5 months drinking 15 packs a day at 8% alcohol (nataidan samaniego). Vital signs 96.6 [id number]-78-18-111/73-98%. Appearance was no acute distress. WBC 7.9-Hgb 13.8-HCT 39.7-PLT 306. NA 130 2L-K3.7-CL 90 6L-CO2 26.0-BUN 20.5H- CRE 0.93-GLU 111 Admitted from ER to detox unit Active problem list: 1. Alcohol dependence: Started on phenobarbital, gabapentin as needed dicyclomine as needed, Vistaril as needed, Imodium as needed, trazodone as needed, Zofran as needed, scheduled thiamine and scheduled folic acid. 2. Tobacco abuse: Nicotine patch prescribed, tobacco withheld. 3. Marijuana abuse: Counseled 4. Anxiety depression, PTSD: Continue home medications 5. COPD with home oxygen use: Stable, continue supplements duration O2 with continuous pulse oximetry per patient. 6. Hyponatremia chronic: Stable 7 DVT risk low: Encourage ambulation. Mild protein-calorie malnutrition 08/26/2020 11/12/2021 Encounter for support and coordination of transi tion of care 05/15/2020 05/02/2021 Overview: HOSPITAL/ER FOLLOW UP Which facility: [facility] Dates of visit: 05/10-05/13/2020 Preadmission evaluation: ER with right-sided abdominal pain over 2-1/2 hours, 10 out of 10. Worse with coughing. States she vomited 20 times the day before, with episodes of diarrhea over the past 2 days. Had used Imodium which improved diarrhea. No known exposures to Covid. Also identified chest pain which started approximately 2:00 that afternoon. Subjective fever and chills, chronic cough that is unchanged. Patient was afebrile with temp of 99.4 Fahrenheit, heart rate of 95, blood pressure 147/92. O2 saturation 94% but patient was started on O2 at 2 L per nasal cannula abdominal exam with severe tenderness over epigastric and right upper quadrant and right lower quadrant. No distention. CBC showed white count of 15.2 with neutrophils of 70. Hemoglobin 14.9, platelet 227, CMP within normal limits except for sodium of 134, glucose 107, total bili 1.5, AST and ALT 5 5/277, alk phos 122, troponin negative. Lipase 170. Covid rapid test negative. Ethanol 64. Chest x-ray with generalized hyperinflation, no acute findings. CT of abdomen pelvis without contrast demonstrated severe fatty liver, mild hepatomegaly, normal gallbladder, exophytic isodense nodule on the lower pole of the right kidney, mild bilateral fatty groin hernia. Appendix considered normal. Ultrasound of gallbladder demonstrated partially distended gallbladder with a positive sonographic Kennedy sign, no gallstones. Also identified mild perihepatic ascites. In ER patient was given IV Zofran, morphine 4 mg x 2 IV, Ativan 1 mg IV x1. Primary Diagnosis/es: Acute cholecystitis Elevated LFTs Secondary Diagnosis/es: Anxiety depression Hyperlipidemia Chronic tobacco use Chronic alcohol abuse SANA Hypothyroidism COPD with emphysema Chronic back pain PTSD Chronic anemia unknown etiology Gastroesophageal reflux disease Pulmonary embolus Consultants: Surgery: Dr. Gaye Gordon testing done: ----- -Labwork: See above 05/13/2020 WBC 8.9, hemoglobin 11.4, hematocrit 36.8, elevated indices, RDW of 51.0, platelet count 171, absolute neutrophil count elevated at 7.8. Electrolytes all within normal limits except anion gap of 2, BUN of 2, creatinine 0.68 with estimated GFR of 97. Glucose 148, calcium 8.2. Bilirubin normal, AST 162, ALT 139, alk phosphatase 81 normal, total protein and albumin low 6.3, 2.1 respectively ----- -Imaging: As above 05/12/2020 hepatobiliary scan nuclear medicine: No scintigraphic evidence of cholecystitis or biliary obstruction ----- -Cardiac: ----- -Other: ----- Procedures/ Surgery: Surgery: Laparoscopic cholecystectomy with surgical findings of thickened gallbladder wall with areas of gangrene, enlarged liver with fatty infiltration ascites Hospital course: As above patient was admitted, IV fluid, pain management, taken to surgery. Patient had successful recovery and discharged in a stable condition. Instructions were to return to activity but no driving while taking narcotic medication Medication Reconciliation: Completed Patient was given oxycodone 5 mg every 12 hours #10 documented as of this encounter (statuses as of 12/16/2022) [facility]11-13-2021 History of Past illness Narrative* Problem Noted Date Resolved Date Encounter for support and coordination of transi tion of care 05/02/2021 07/23/2021 Overview: Hospital discharge summary: Date of admission 05/01/2021 Date of discharge: Facility: [facility] 05/01/2021 presented to the emergency room with acute alcohol intoxication, initial alcohol level 7-8. Acknowledges over the last 5 months drinking 15 packs a day at 8% alcohol (marcin samaniego). Vital signs 96.6 F-78-18-111/73-98%. Appearance was no acute distress. WBC 7.9-Hgb 13.8-HCT 39.7-PLT 306. NA 130 2L-K3.7-CL 90 6L-CO2 26.0-BUN 20.5H- CRE 0.93-GLU 111 Admitted from ER to detox unit Active problem list: 1. Alcohol dependence: Started on phenobarbital, gabapentin as needed dicyclomine as needed, Vistaril as needed, Imodium as needed, trazodone as needed, Zofran as needed, scheduled thiamine and scheduled folic acid. 2. Tobacco abuse: Nicotine patch prescribed, tobacco withheld. 3. Marijuana abuse: Counseled 4. Anxiety depression, PTSD: Continue home medications 5. COPD with home oxygen use: Stable, continue supplements duration O2 with continuous pulse oximetry per patient. 6. Hyponatremia chronic: Stable 7 DVT risk low: Encourage ambulation. Mild protein-calorie malnutrition 08/26/2020 11/12/2021 Encounter for support and coordination of transi tion of care 05/15/2020 05/02/2021 Overview: HOSPITAL/ER FOLLOW UP Which facility: [facility] Dates of visit: 05/10-05/13/2020 Preadmission evaluation: ER with right-sided abdominal pain over 2-1/2 hours, 10 out of 10. Worse with coughing. States she vomited 20 times the day before, with episodes of diarrhea over the past 2 days. Had used Imodium which improved diarrhea. No known exposures to Covid. Also identified chest pain which started approximately 2:00 that afternoon. Subjective fever and chills, chronic cough that is unchanged. Patient was afebrile with temp of 99.4 Fahrenheit, heart rate of 95, blood pressure 147/92. O2 saturation 94% but patient was started on O2 at 2 L per nasal cannula abdominal exam with severe tenderness over epigastric and right upper quadrant and right lower quadrant. No distention. CBC showed white count of 15.2 with neutrophils of 70. Hemoglobin 14.9, platelet 227, CMP within normal limits except for sodium of 134, glucose 107, total bili 1.5, AST and ALT 5 /277, alk phos 122, troponin negative. Lipase 170. Covid rapid test negative. Ethanol 64. Chest x-ray with generalized hyperinflation, no acute findings. CT of abdomen pelvis without contrast demonstrated severe fatty liver, mild hepatomegaly, normal gallbladder, exophytic isodense nodule on the lower pole of the right kidney, mild bilateral fatty groin hernia. Appendix considered normal. Ultrasound of gallbladder demonstrated partially distended gallbladder with a positive sonographic Kennedy sign, no gallstones. Also identified mild perihepatic ascites. In ER patient was given IV Zofran, morphine 4 mg x 2 IV, Ativan 1 mg IV x1. Primary Diagnosis/es: Acute cholecystitis Elevated LFTs Secondary Diagnosis/es: Anxiety depression Hyperlipidemia Chronic tobacco use Chronic alcohol abuse SANA Hypothyroidism COPD with emphysema Chronic back pain PTSD Chronic anemia unknown etiology Gastroesophageal reflux disease Pulmonary embolus Consultants: Surgery: Dr. Gaye Gordon testing done: ----- -Labwork: See above 05/13/2020 WBC 8.9, hemoglobin 11.4, hematocrit 36.8, elevated indices, RDW of 51.0, platelet count 171, absolute neutrophil count elevated at 7.8. Electrolytes all within normal limits except anion gap of 2, BUN of 2, creatinine 0.68 with estimated GFR of 97. Glucose 148, calcium 8.2. Bilirubin normal, AST 162, ALT 139, alk phosphatase 81 normal, total protein and albumin low 6.3, 2.1 respectively ----- -Imaging: As above 05/12/2020 hepatobiliary scan nuclear medicine: No scintigraphic evidence of cholecystitis or biliary obstruction ----- -Cardiac: ----- -Other: ----- Procedures/ Surgery: Surgery: Laparoscopic cholecystectomy with surgical findings of thickened gallbladder wall with areas of gangrene, enlarged liver with fatty infiltration ascites Hospital course: As above patient was admitted, IV fluid, pain management, taken to surgery. Patient had successful recovery and discharged in a stable condition. Instructions were to return to activity but no driving while taking narcotic medication Medication Reconciliation: Completed Patient was given oxycodone 5 mg every 12 hours #10 documented as of this encounter (statuses as of 12/16/2022) [facility]11-13-2021 History of Past illness Narrative* Problem Noted Date Resolved Date Encounter for support and coordination of transi tion of care 05/02/2021 07/23/2021 Overview: Hospital discharge summary: Date of admission 05/01/2021 Date of discharge: Facility: [facility] 05/01/2021 presented to the emergency room with acute alcohol intoxication, initial alcohol level 7-8. Acknowledges over the last 5 months drinking 15 packs a day at 8% alcohol (marcin samaniego). Vital signs 96.6 F-78-18-111/73-98%. Appearance was no acute distress. WBC 7.9-Hgb 13.8-HCT 39.7-PLT 306. NA 130 2L-K3.7-CL 90 6L-CO2 26.0-BUN 20.5H- CRE 0.93-GLU 111 Admitted from ER to detox unit Active problem list: 1. Alcohol dependence: Started on phenobarbital, gabapentin as needed dicyclomine as needed, Vistaril as needed, Imodium as needed, trazodone as needed, Zofran as needed, scheduled thiamine and scheduled folic acid. 2. Tobacco abuse: Nicotine patch prescribed, tobacco withheld. 3. Marijuana abuse: Counseled 4. Anxiety depression, PTSD: Continue home medications 5. COPD with home oxygen use: Stable, continue supplements duration O2 with continuous pulse oximetry per patient. 6. Hyponatremia chronic: Stable 7 DVT risk low: Encourage ambulation. Mild protein-calorie malnutrition 08/26/2020 11/12/2021 Encounter for support and coordination of transi tion of care 05/15/2020 05/02/2021 Overview: HOSPITAL/ER FOLLOW UP Which facility: [facility] Dates of visit: 05/10-05/13/2020 Preadmission evaluation: ER with right-sided abdominal pain over 2-1/2 hours, 10 out of 10. Worse with coughing. States she vomited 20 times the day before, with episodes of diarrhea over the past 2 days. Had used Imodium which improved diarrhea. No known exposures to Covid. Also identified chest pain which started approximately 2:00 that afternoon. Subjective fever and chills, chronic cough that is unchanged. Patient was afebrile with temp of 99.4 Fahrenheit, heart rate of 95, blood pressure 147/92. O2 saturation 94% but patient was started on O2 at 2 L per nasal cannula abdominal exam with severe tenderness over epigastric and right upper quadrant and right lower quadrant. No distention. CBC showed white count of 15.2 with neutrophils of 70. Hemoglobin 14.9, platelet 227, CMP within normal limits except for sodium of 134, glucose 107, total bili 1.5, AST and ALT 5 5/277, alk phos 122, troponin negative. Lipase 170. Covid rapid test negative. Ethanol 64. Chest x-ray with generalized hyperinflation, no acute findings. CT of abdomen pelvis without contrast demonstrated severe fatty liver, mild hepatomegaly, normal gallbladder, exophytic isodense nodule on the lower pole of the right kidney, mild bilateral fatty groin hernia. Appendix considered normal. Ultrasound of gallbladder demonstrated partially distended gallbladder with a positive sonographic Kennedy sign, no gallstones. Also identified mild perihepatic ascites. In ER patient was given IV Zofran, morphine 4 mg x 2 IV, Ativan 1 mg IV x1. Primary Diagnosis/es: Acute cholecystitis Elevated LFTs Secondary Diagnosis/es: Anxiety depression Hyperlipidemia Chronic tobacco use Chronic alcohol abuse SANA Hypothyroidism COPD with emphysema Chronic back pain PTSD Chronic anemia unknown etiology Gastroesophageal reflux disease Pulmonary embolus Consultants: Surgery: Dr. Gaye Gordon testing done: ----- -Labwork: See above 05/13/2020 WBC 8.9, hemoglobin 11.4, hematocrit 36.8, elevated indices, RDW of 51.0, platelet count 171, absolute neutrophil count elevated at 7.8. Electrolytes all within normal limits except anion gap of 2, BUN of 2, creatinine 0.68 with estimated GFR of 97. Glucose 148, calcium 8.2. Bilirubin normal, AST 162, ALT 139, alk phosphatase 81 normal, total protein and albumin low 6.3, 2.1 respectively ----- -Imaging: As above 05/12/2020 hepatobiliary scan nuclear medicine: No scintigraphic evidence of cholecystitis or biliary obstruction ----- -Cardiac: ----- -Other: ----- Procedures/ Surgery: Surgery: Laparoscopic cholecystectomy with surgical findings of thickened gallbladder wall with areas of gangrene, enlarged liver with fatty infiltration ascites Hospital course: As above patient was admitted, IV fluid, pain management, taken to surgery. Patient had successful recovery and discharged in a stable condition. Instructions were to return to activity but no driving while taking narcotic medication Medication Reconciliation: Completed Patient was given oxycodone 5 mg every 12 hours #10 documented as of this encounter (statuses as of 12/23/2022) [facility]-13-[facility]21 History of Past illness Narrative* Problem Noted Date Resolved Date Encounter for support and coordination of transi tion of care 05/02/2021 07/23/2021 Overview: Hospital discharge summary: Date of admission 05/01/2021 Date of discharge: Facility: [facility] 05/01/2021 presented to the emergency room with acute alcohol intoxication, initial alcohol level 7-8. Acknowledges over the last 5 months drinking 15 packs a day at 8% alcohol (nataidan samaniego). Vital signs 96.6 F-78-18-111/73-98%. Appearance was no acute distress. WBC 7.9-Hgb 13.8-HCT 39.7-PLT 306. NA 130 2L-K3.7-CL 90 6L-CO2 26.0-BUN 20.5H- CRE 0.93-GLU 111 Admitted from ER to detox unit Active problem list: 1. Alcohol dependence: Started on phenobarbital, gabapentin as needed dicyclomine as needed, Vistaril as needed, Imodium as needed, trazodone as needed, Zofran as needed, scheduled thiamine and scheduled folic acid. 2. Tobacco abuse: Nicotine patch prescribed, tobacco withheld. 3. Marijuana abuse: Counseled 4. Anxiety depression, PTSD: Continue home medications 5. COPD with home oxygen use: Stable, continue supplements duration O2 with continuous pulse oximetry per patient. 6. Hyponatremia chronic: Stable 7 DVT risk low: Encourage ambulation. Mild protein-calorie malnutrition 08/26/2020 11/12/2021 Encounter for support and coordination of transi tion of care 05/15/2020 05/02/2021 Overview: HOSPITAL/ER FOLLOW UP Which facility: [facility] Dates of visit: 05/10-05/13/2020 Preadmission evaluation: ER with right-sided abdominal pain over 2-1/2 hours, 10 out of 10. Worse with coughing. States she vomited 20 times the day before, with episodes of diarrhea over the past 2 days. Had used Imodium which improved diarrhea. No known exposures to Covid. Also identified chest pain which started approximately 2:00 that afternoon. Subjective fever and chills, chronic cough that is unchanged. Patient was afebrile with temp of 99.4 Fahrenheit, heart rate of 95, blood pressure 147/92. O2 saturation 94% but patient was started on O2 at 2 L per nasal cannula abdominal exam with severe tenderness over epigastric and right upper quadrant and right lower quadrant. No distention. CBC showed white count of 15.2 with neutrophils of 70. Hemoglobin 14.9, platelet 227, CMP within normal limits except for sodium of 134, glucose 107, total bili 1.5, AST and ALT 5 5/277, alk phos 122, troponin negative. Lipase 170. Covid rapid test negative. Ethanol 64. Chest x-ray with generalized hyperinflation, no acute findings. CT of abdomen pelvis without contrast demonstrated severe fatty liver, mild hepatomegaly, normal gallbladder, exophytic isodense nodule on the lower pole of the right kidney, mild bilateral fatty groin hernia. Appendix considered normal. Ultrasound of gallbladder demonstrated partially distended gallbladder with a positive sonographic Kennedy sign, no gallstones. Also identified mild perihepatic ascites. In ER patient was given IV Zofran, morphine 4 mg x 2 IV, Ativan 1 mg IV x1. Primary Diagnosis/es: Acute cholecystitis Elevated LFTs Secondary Diagnosis/es: Anxiety depression Hyperlipidemia Chronic tobacco use Chronic alcohol abuse SANA Hypothyroidism COPD with emphysema Chronic back pain PTSD Chronic anemia unknown etiology Gastroesophageal reflux disease Pulmonary embolus Consultants: Surgery: Dr. Gaye Gordon testing done: ----- -Labwork: See above 05/13/2020 WBC 8.9, hemoglobin 11.4, hematocrit 36.8, elevated indices, RDW of 51.0, platelet count 171, absolute neutrophil count elevated at 7.8. Electrolytes all within normal limits except anion gap of 2, BUN of 2, creatinine 0.68 with estimated GFR of 97. Glucose 148, calcium 8.2. Bilirubin normal, AST 162, ALT 139, alk phosphatase 81 normal, total protein and albumin low 6.3, 2.1 respectively ----- -Imaging: As above 05/12/2020 hepatobiliary scan nuclear medicine: No scintigraphic evidence of cholecystitis or biliary obstruction ----- -Cardiac: ----- -Other: ----- Procedures/ Surgery: Surgery: Laparoscopic cholecystectomy with surgical findings of thickened gallbladder wall with areas of gangrene, enlarged liver with fatty infiltration ascites Hospital course: As above patient was admitted, IV fluid, pain management, taken to surgery. Patient had successful recovery and discharged in a stable condition. Instructions were to return to activity but no driving while taking narcotic medication Medication Reconciliation: Completed Patient was given oxycodone 5 mg every 12 hours #10 documented as of this encounter (statuses as of 12/24/2022) [facility]11-13-2021 History of Past illness Narrative* Problem Noted Date Diagnosed Date Resolved Date Encounter for support and co ordination of transition of care 05/02/2021 07/23/2021 Overview: Hospital discharge summary: Date of admission 05/01/2021 Date of discharge: Facility: [facility] 05/01/2021 presented to the emergency room with acute alcohol intoxication, initial alcohol level 7-8. Acknowledges over the last 5 months drinking 15 packs a day at 8% alcohol (marcin samaniego). Vital signs 96.6 F-78-18-111/73-98%. Appearance was no acute distress. WBC 7.9-Hgb 13.8-HCT 39.7-PLT 306. NA 130 2L-K3.7-CL 90 6L-CO2 26.0-BUN 20.5H- CRE 0.93-GLU 111 Admitted from ER to detox unit Active problem list: 1. Alcohol dependence: Started on phenobarbital, gabapentin as needed dicyclomine as needed, Vistaril as needed, Imodium as needed, trazodone as needed, Zofran as needed, scheduled thiamine and scheduled folic acid. 2. Tobacco abuse: Nicotine patch prescribed, tobacco withheld. 3. Marijuana abuse: Counseled 4. Anxiety depression, PTSD: Continue home medications 5. COPD with home oxygen use: Stable, continue supplements duration O2 with continuous pulse oximetry per patient. 6. Hyponatremia chronic: Stable 7 DVT risk low: Encourage ambulation. Mild protein-calorie malnutrition 08/26/2020 11/12/2021 Encounter for support and co ordination of transition of care 05/15/2020 05/02/2021 Overview: HOSPITAL/ER FOLLOW UP Which facility: [facility] Dates of visit: 05/10-05/13/2020 Preadmission evaluation: ER with right-sided abdominal pain over 2-1/2 hours, 10 out of 10. Worse with coughing. States she vomited 20 times the day before, with episodes of diarrhea over the past 2 days. Had used Imodium which improved diarrhea. No known exposures to Covid. Also identified chest pain which started approximately 2:00 that afternoon. Subjective fever and chills, chronic cough that is unchanged. Patient was afebrile with temp of 99.4 Fahrenheit, heart rate of 95, blood pressure 147/92. O2 saturation 94% but patient was started on O2 at 2 L per nasal cannula abdominal exam with severe tenderness over epigastric and right upper quadrant and right lower quadrant. No distention. CBC showed white count of 15.2 with neutrophils of 70. Hemoglobin 14.9, platelet 227, CMP within normal limits except for sodium of 134, glucose 107, total bili 1.5, AST and ALT 5 5/277, alk phos 122, troponin negative. Lipase 170. Covid rapid test negative. Ethanol 64. Chest x-ray with generalized hyperinflation, no acute findings. CT of abdomen pelvis without contrast demonstrated severe fatty liver, mild hepatomegaly, normal gallbladder, exophytic isodense nodule on the lower pole of the right kidney, mild bilateral fatty groin hernia. Appendix considered normal. Ultrasound of gallbladder demonstrated partially distended gallbladder with a positive sonographic Kennedy sign, no gallstones. Also identified mild perihepatic ascites. In ER patient was given IV Zofran, morphine 4 mg x 2 IV, Ativan 1 mg IV x1. Primary Diagnosis/es: Acute cholecystitis Elevated LFTs Secondary Diagnosis/es: Anxiety depression Hyperlipidemia Chronic tobacco use Chronic alcohol abuse SANA Hypothyroidism COPD with emphysema Chronic back pain PTSD Chronic anemia unknown etiology Gastroesophageal reflux disease Pulmonary embolus Consultants: Surgery: Dr. Gaye Gordon testing done: ----- -Labwork: See above 05/13/2020 WBC 8.9, hemoglobin 11.4, hematocrit 36.8, elevated indices, RDW of 51.0, platelet count 171, absolute neutrophil count elevated at 7.8. Electrolytes all within normal limits except anion gap of 2, BUN of 2, creatinine 0.68 with estimated GFR of 97. Glucose 148, calcium 8.2. Bilirubin normal, AST 162, ALT 139, alk phosphatase 81 normal, total protein and albumin low 6.3, 2.1 respectively ----- -Imaging: As above 05/12/2020 hepatobiliary scan nuclear medicine: No scintigraphic evidence of cholecystitis or biliary obstruction ----- -Cardiac: ----- -Other: ----- Procedures/ Surgery: Surgery: Laparoscopic cholecystectomy with surgical findings of thickened gallbladder wall with areas of gangrene, enlarged liver with fatty infiltration ascites Hospital course: As above patient was admitted, IV fluid, pain management, taken to surgery. Patient had successful recovery and discharged in a stable condition. Instructions were to return to activity but no driving while taking narcotic medication Medication Reconciliation: Completed Patient was given oxycodone 5 mg every 12 hours #10 documented as of this encounter (statuses as of 01/05/2023) [facility]11-13-2021 History of Past illness Narrative* Problem Noted Date Diagnosed Date Resolved Date Encounter for support and co ordination of transition of care 05/02/2021 07/23/2021 Overview: Hospital discharge summary: Date of admission 05/01/2021 Date of discharge: Facility: [facility] 05/01/2021 presented to the emergency room with acute alcohol intoxication, initial alcohol level 7-8. Acknowledges over the last 5 months drinking 15 packs a day at 8% alcohol (marcin samaniego). Vital signs 96.6 F-78-18-111/73-98%. Appearance was no acute distress. WBC 7.9-Hgb 13.8-HCT 39.7-PLT 306. NA 130 2L-K3.7-CL 90 6L-CO2 26.0-BUN 20.5H- CRE 0.93-GLU 111 Admitted from ER to detox unit Active problem list: 1. Alcohol dependence: Started on phenobarbital, gabapentin as needed dicyclomine as needed, Vistaril as needed, Imodium as needed, trazodone as needed, Zofran as needed, scheduled thiamine and scheduled folic acid. 2. Tobacco abuse: Nicotine patch prescribed, tobacco withheld. 3. Marijuana abuse: Counseled 4. Anxiety depression, PTSD: Continue home medications 5. COPD with home oxygen use: Stable, continue supplements duration O2 with continuous pulse oximetry per patient. 6. Hyponatremia chronic: Stable 7 DVT risk low: Encourage ambulation. Mild protein-calorie malnutrition 08/26/2020 11/12/2021 Encounter for support and co ordination of transition of care 05/15/2020 05/02/2021 Overview: HOSPITAL/ER FOLLOW UP Which facility: [facility] Dates of visit: 05/10-05/13/2020 Preadmission evaluation: ER with right-sided abdominal pain over 2-1/2 hours, 10 out of 10. Worse with coughing. States she vomited 20 times the day before, with episodes of diarrhea over the past 2 days. Had used Imodium which improved diarrhea. No known exposures to Covid. Also identified chest pain which started approximately 2:00 that afternoon. Subjective fever and chills, chronic cough that is unchanged. Patient was afebrile with temp of 99.4 Fahrenheit, heart rate of 95, blood pressure 147/92. O2 saturation 94% but patient was started on O2 at 2 L per nasal cannula abdominal exam with severe tenderness over epigastric and right upper quadrant and right lower quadrant. No distention. CBC showed white count of 15.2 with neutrophils of 70. Hemoglobin 14.9, platelet 227, CMP within normal limits except for sodium of 134, glucose 107, total bili 1.5, AST and ALT 5 5/277, alk phos 122, troponin negative. Lipase 170. Covid rapid test negative. Ethanol 64. Chest x-ray with generalized hyperinflation, no acute findings. CT of abdomen pelvis without contrast demonstrated severe fatty liver, mild hepatomegaly, normal gallbladder, exophytic isodense nodule on the lower pole of the right kidney, mild bilateral fatty groin hernia. Appendix considered normal. Ultrasound of gallbladder demonstrated partially distended gallbladder with a positive sonographic Kennedy sign, no gallstones. Also identified mild perihepatic ascites. In ER patient was given IV Zofran, morphine 4 mg x 2 IV, Ativan 1 mg IV x1. Primary Diagnosis/es: Acute cholecystitis Elevated LFTs Secondary Diagnosis/es: Anxiety depression Hyperlipidemia Chronic tobacco use Chronic alcohol abuse SANA Hypothyroidism COPD with emphysema Chronic back pain PTSD Chronic anemia unknown etiology Gastroesophageal reflux disease Pulmonary embolus Consultants: Surgery: Dr. Gaye Gordon testing done: ----- -Labwork: See above 05/13/2020 WBC 8.9, hemoglobin 11.4, hematocrit 36.8, elevated indices, RDW of 51.0, platelet count 171, absolute neutrophil count elevated at 7.8. Electrolytes all within normal limits except anion gap of 2, BUN of 2, creatinine 0.68 with estimated GFR of 97. Glucose 148, calcium 8.2. Bilirubin normal, AST 162, ALT 139, alk phosphatase 81 normal, total protein and albumin low 6.3, 2.1 respectively ----- -Imaging: As above 05/12/2020 hepatobiliary scan nuclear medicine: No scintigraphic evidence of cholecystitis or biliary obstruction ----- -Cardiac: ----- -Other: ----- Procedures/ Surgery: Surgery: Laparoscopic cholecystectomy with surgical findings of thickened gallbladder wall with areas of gangrene, enlarged liver with fatty infiltration ascites Hospital course: As above patient was admitted, IV fluid, pain management, taken to surgery. Patient had successful recovery and discharged in a stable condition. Instructions were to return to activity but no driving while taking narcotic medication Medication Reconciliation: Completed Patient was given oxycodone 5 mg every 12 hours #10 documented as of this encounter (statuses as of 01/05/2023) [facility]11-13-2021 History of Past illness Narrative* Problem Noted Date Diagnosed Date Resolved Date Encounter for support and co ordination of transition of care 05/02/2021 07/23/2021 Overview: Hospital discharge summary: Date of admission 05/01/2021 Date of discharge: Facility: [facility] 05/01/2021 presented to the emergency room with acute alcohol intoxication, initial alcohol level 7-8. Acknowledges over the last 5 months drinking 15 packs a day at 8% alcohol (marcin samaniego). Vital signs 96.6 F-78-18-111/73-98%. Appearance was no acute distress. WBC 7.9-Hgb 13.8-HCT 39.7-PLT 306. NA 130 2L-K3.7-CL 90 6L-CO2 26.0-BUN 20.5H- CRE 0.93-GLU 111 Admitted from ER to detox unit Active problem list: 1. Alcohol dependence: Started on phenobarbital, gabapentin as needed dicyclomine as needed, Vistaril as needed, Imodium as needed, trazodone as needed, Zofran as needed, scheduled thiamine and scheduled folic acid. 2. Tobacco abuse: Nicotine patch prescribed, tobacco withheld. 3. Marijuana abuse: Counseled 4. Anxiety depression, PTSD: Continue home medications 5. COPD with home oxygen use: Stable, continue supplements duration O2 with continuous pulse oximetry per patient. 6. Hyponatremia chronic: Stable 7 DVT risk low: Encourage ambulation. Mild protein-calorie malnutrition 08/26/2020 11/12/2021 Encounter for support and co ordination of transition of care 05/15/2020 05/02/2021 Overview: HOSPITAL/ER FOLLOW UP Which facility: [facility] Dates of visit: 05/10-05/13/2020 Preadmission evaluation: ER with right-sided abdominal pain over 2-1/2 hours, 10 out of 10. Worse with coughing. States she vomited 20 times the day before, with episodes of diarrhea over the past 2 days. Had used Imodium which improved diarrhea. No known exposures to Covid. Also identified chest pain which started approximately 2:00 that afternoon. Subjective fever and chills, chronic cough that is unchanged. Patient was afebrile with temp of 99.4 Fahrenheit, heart rate of 95, blood pressure 147/92. O2 saturation 94% but patient was started on O2 at 2 L per nasal cannula abdominal exam with severe tenderness over epigastric and right upper quadrant and right lower quadrant. No distention. CBC showed white count of 15.2 with neutrophils of 70. Hemoglobin 14.9, platelet 227, CMP within normal limits except for sodium of 134, glucose 107, total bili 1.5, AST and ALT 5 /277, alk phos 122, troponin negative. Lipase 170. Covid rapid test negative. Ethanol 64. Chest x-ray with generalized hyperinflation, no acute findings. CT of abdomen pelvis without contrast demonstrated severe fatty liver, mild hepatomegaly, normal gallbladder, exophytic isodense nodule on the lower pole of the right kidney, mild bilateral fatty groin hernia. Appendix considered normal. Ultrasound of gallbladder demonstrated partially distended gallbladder with a positive sonographic Kennedy sign, no gallstones. Also identified mild perihepatic ascites. In ER patient was given IV Zofran, morphine 4 mg x 2 IV, Ativan 1 mg IV x1. Primary Diagnosis/es: Acute cholecystitis Elevated LFTs Secondary Diagnosis/es: Anxiety depression Hyperlipidemia Chronic tobacco use Chronic alcohol abuse SANA Hypothyroidism COPD with emphysema Chronic back pain PTSD Chronic anemia unknown etiology Gastroesophageal reflux disease Pulmonary embolus Consultants: Surgery: Dr. Gaye Gordon testing done: ----- -Labwork: See above 05/13/2020 WBC 8.9, hemoglobin 11.4, hematocrit 36.8, elevated indices, RDW of 51.0, platelet count 171, absolute neutrophil count elevated at 7.8. Electrolytes all within normal limits except anion gap of 2, BUN of 2, creatinine 0.68 with estimated GFR of 97. Glucose 148, calcium 8.2. Bilirubin normal, AST 162, ALT 139, alk phosphatase 81 normal, total protein and albumin low 6.3, 2.1 respectively ----- -Imaging: As above 05/12/2020 hepatobiliary scan nuclear medicine: No scintigraphic evidence of cholecystitis or biliary obstruction ----- -Cardiac: ----- -Other: ----- Procedures/ Surgery: Surgery: Laparoscopic cholecystectomy with surgical findings of thickened gallbladder wall with areas of gangrene, enlarged liver with fatty infiltration ascites Hospital course: As above patient was admitted, IV fluid, pain management, taken to surgery. Patient had successful recovery and discharged in a stable condition. Instructions were to return to activity but no driving while taking narcotic medication Medication Reconciliation: Completed Patient was given oxycodone 5 mg every 12 hours #10 documented as of this encounter (statuses as of 01/07/2023) [facility]11-13-2021 History of Past illness Narrative* Problem Noted Date Diagnosed Date Resolved Date Encounter for support and co ordination of transition of care 05/02/2021 07/23/2021 Overview: Hospital discharge summary: Date of admission 05/01/2021 Date of discharge: Facility: [facility] 05/01/2021 presented to the emergency room with acute alcohol intoxication, initial alcohol level 7-8. Acknowledges over the last 5 months drinking 15 packs a day at 8% alcohol (marcin samaniego). Vital signs 96.6 F-78-18-111/73-98%. Appearance was no acute distress. WBC 7.9-Hgb 13.8-HCT 39.7-PLT 306. NA 130 2L-K3.7-CL 90 6L-CO2 26.0-BUN 20.5H- CRE 0.93-GLU 111 Admitted from ER to detox unit Active problem list: 1. Alcohol dependence: Started on phenobarbital, gabapentin as needed dicyclomine as needed, Vistaril as needed, Imodium as needed, trazodone as needed, Zofran as needed, scheduled thiamine and scheduled folic acid. 2. Tobacco abuse: Nicotine patch prescribed, tobacco withheld. 3. Marijuana abuse: Counseled 4. Anxiety depression, PTSD: Continue home medications 5. COPD with home oxygen use: Stable, continue supplements duration O2 with continuous pulse oximetry per patient. 6. Hyponatremia chronic: Stable 7 DVT risk low: Encourage ambulation. Mild protein-calorie malnutrition 08/26/2020 11/12/2021 Encounter for support and co ordination of transition of care 05/15/2020 05/02/2021 Overview: HOSPITAL/ER FOLLOW UP Which facility: [facility] Dates of visit: 05/10-05/13/2020 Preadmission evaluation: ER with right-sided abdominal pain over 2-1/2 hours, 10 out of 10. Worse with coughing. States she vomited 20 times the day before, with episodes of diarrhea over the past 2 days. Had used Imodium which improved diarrhea. No known exposures to Covid. Also identified chest pain which started approximately 2:00 that afternoon. Subjective fever and chills, chronic cough that is unchanged. Patient was afebrile with temp of 99.4 Fahrenheit, heart rate of 95, blood pressure 147/92. O2 saturation 94% but patient was started on O2 at 2 L per nasal cannula abdominal exam with severe tenderness over epigastric and right upper quadrant and right lower quadrant. No distention. CBC showed white count of 15.2 with neutrophils of 70. Hemoglobin 14.9, platelet 227, CMP within normal limits except for sodium of 134, glucose 107, total bili 1.5, AST and ALT 5 5/277, alk phos 122, troponin negative. Lipase 170. Covid rapid test negative. Ethanol 64. Chest x-ray with generalized hyperinflation, no acute findings. CT of abdomen pelvis without contrast demonstrated severe fatty liver, mild hepatomegaly, normal gallbladder, exophytic isodense nodule on the lower pole of the right kidney, mild bilateral fatty groin hernia. Appendix considered normal. Ultrasound of gallbladder demonstrated partially distended gallbladder with a positive sonographic Kennedy sign, no gallstones. Also identified mild perihepatic ascites. In ER patient was given IV Zofran, morphine 4 mg x 2 IV, Ativan 1 mg IV x1. Primary Diagnosis/es: Acute cholecystitis Elevated LFTs Secondary Diagnosis/es: Anxiety depression Hyperlipidemia Chronic tobacco use Chronic alcohol abuse SANA Hypothyroidism COPD with emphysema Chronic back pain PTSD Chronic anemia unknown etiology Gastroesophageal reflux disease Pulmonary embolus Consultants: Surgery: Dr. Gaye Gordon testing done: ----- -Labwork: See above 05/13/2020 WBC 8.9, hemoglobin 11.4, hematocrit 36.8, elevated indices, RDW of 51.0, platelet count 171, absolute neutrophil count elevated at 7.8. Electrolytes all within normal limits except anion gap of 2, BUN of 2, creatinine 0.68 with estimated GFR of 97. Glucose 148, calcium 8.2. Bilirubin normal, AST 162, ALT 139, alk phosphatase 81 normal, total protein and albumin low 6.3, 2.1 respectively ----- -Imaging: As above 05/12/2020 hepatobiliary scan nuclear medicine: No scintigraphic evidence of cholecystitis or biliary obstruction ----- -Cardiac: ----- -Other: ----- Procedures/ Surgery: Surgery: Laparoscopic cholecystectomy with surgical findings of thickened gallbladder wall with areas of gangrene, enlarged liver with fatty infiltration ascites Hospital course: As above patient was admitted, IV fluid, pain management, taken to surgery. Patient had successful recovery and discharged in a stable condition. Instructions were to return to activity but no driving while taking narcotic medication Medication Reconciliation: Completed Patient was given oxycodone 5 mg every 12 hours #10 documented as of this encounter (statuses as of 01/14/2023) [facility]11-13-2021 History of Past illness Narrative* Problem Noted Date Diagnosed Date Resolved Date Encounter for support and co ordination of transition of care 05/02/2021 07/23/2021 Overview: Hospital discharge summary: Date of admission 05/01/2021 Date of discharge: Facility: [facility] 05/01/2021 presented to the emergency room with acute alcohol intoxication, initial alcohol level 7-8. Acknowledges over the last 5 months drinking 15 packs a day at 8% alcohol (marcin samaniego). Vital signs 96.6 F-78-18-111/73-98%. Appearance was no acute distress. WBC 7.9-Hgb 13.8-HCT 39.7-PLT 306. NA 130 2L-K3.7-CL 90 6L-CO2 26.0-BUN 20.5H- CRE 0.93-GLU 111 Admitted from ER to detox unit Active problem list: 1. Alcohol dependence: Started on phenobarbital, gabapentin as needed dicyclomine as needed, Vistaril as needed, Imodium as needed, trazodone as needed, Zofran as needed, scheduled thiamine and scheduled folic acid. 2. Tobacco abuse: Nicotine patch prescribed, tobacco withheld. 3. Marijuana abuse: Counseled 4. Anxiety depression, PTSD: Continue home medications 5. COPD with home oxygen use: Stable, continue supplements duration O2 with continuous pulse oximetry per patient. 6. Hyponatremia chronic: Stable 7 DVT risk low: Encourage ambulation. Mild protein-calorie malnutrition 08/26/2020 11/12/2021 Encounter for support and co ordination of transition of care 05/15/2020 05/02/2021 Overview: HOSPITAL/ER FOLLOW UP Which facility: [facility] Dates of visit: 05/10-05/13/2020 Preadmission evaluation: ER with right-sided abdominal pain over 2-1/2 hours, 10 out of 10. Worse with coughing. States she vomited 20 times the day before, with episodes of diarrhea over the past 2 days. Had used Imodium which improved diarrhea. No known exposures to Covid. Also identified chest pain which started approximately 2:00 that afternoon. Subjective fever and chills, chronic cough that is unchanged. Patient was afebrile with temp of 99.4 Fahrenheit, heart rate of 95, blood pressure 147/92. O2 saturation 94% but patient was started on O2 at 2 L per nasal cannula abdominal exam with severe tenderness over epigastric and right upper quadrant and right lower quadrant. No distention. CBC showed white count of 15.2 with neutrophils of 70. Hemoglobin 14.9, platelet 227, CMP within normal limits except for sodium of 134, glucose 107, total bili 1.5, AST and ALT 5 5/277, alk phos 122, troponin negative. Lipase 170. Covid rapid test negative. Ethanol 64. Chest x-ray with generalized hyperinflation, no acute findings. CT of abdomen pelvis without contrast demonstrated severe fatty liver, mild hepatomegaly, normal gallbladder, exophytic isodense nodule on the lower pole of the right kidney, mild bilateral fatty groin hernia. Appendix considered normal. Ultrasound of gallbladder demonstrated partially distended gallbladder with a positive sonographic Kennedy sign, no gallstones. Also identified mild perihepatic ascites. In ER patient was given IV Zofran, morphine 4 mg x 2 IV, Ativan 1 mg IV x1. Primary Diagnosis/es: Acute cholecystitis Elevated LFTs Secondary Diagnosis/es: Anxiety depression Hyperlipidemia Chronic tobacco use Chronic alcohol abuse SANA Hypothyroidism COPD with emphysema Chronic back pain PTSD Chronic anemia unknown etiology Gastroesophageal reflux disease Pulmonary embolus Consultants: Surgery: Dr. Gaye Gordon testing done: ----- -Labwork: See above 05/13/2020 WBC 8.9, hemoglobin 11.4, hematocrit 36.8, elevated indices, RDW of 51.0, platelet count 171, absolute neutrophil count elevated at 7.8. Electrolytes all within normal limits except anion gap of 2, BUN of 2, creatinine 0.68 with estimated GFR of 97. Glucose 148, calcium 8.2. Bilirubin normal, AST 162, ALT 139, alk phosphatase 81 normal, total protein and albumin low 6.3, 2.1 respectively ----- -Imaging: As above 05/12/2020 hepatobiliary scan nuclear medicine: No scintigraphic evidence of cholecystitis or biliary obstruction ----- -Cardiac: ----- -Other: ----- Procedures/ Surgery: Surgery: Laparoscopic cholecystectomy with surgical findings of thickened gallbladder wall with areas of gangrene, enlarged liver with fatty infiltration ascites Hospital course: As above patient was admitted, IV fluid, pain management, taken to surgery. Patient had successful recovery and discharged in a stable condition. Instructions were to return to activity but no driving while taking narcotic medication Medication Reconciliation: Completed Patient was given oxycodone 5 mg every 12 hours #10 documented as of this encounter (statuses as of 01/29/2023) [facility]21 History of Past illness Narrative* Problem Noted Date Diagnosed Date Resolved Date Encounter for support and co ordination of transition of care 05/02/2021 07/23/2021 Overview: Hospital discharge summary: Date of admission 05/01/2021 Date of discharge: Facility: [facility] 05/01/2021 presented to the emergency room with acute alcohol intoxication, initial alcohol level 7-8. Acknowledges over the last 5 months drinking 15 packs a day at 8% alcohol (nataidan samaniego). Vital signs 96.6 F-78-18-111/73-98%. Appearance was no acute distress. WBC 7.9-Hgb 13.8-HCT 39.7-PLT 306. NA 130 2L-K3.7-CL 90 6L-CO2 26.0-BUN 20.5H- CRE 0.93-GLU 111 Admitted from ER to detox unit Active problem list: 1. Alcohol dependence: Started on phenobarbital, gabapentin as needed dicyclomine as needed, Vistaril as needed, Imodium as needed, trazodone as needed, Zofran as needed, scheduled thiamine and scheduled folic acid. 2. Tobacco abuse: Nicotine patch prescribed, tobacco withheld. 3. Marijuana abuse: Counseled 4. Anxiety depression, PTSD: Continue home medications 5. COPD with home oxygen use: Stable, continue supplements duration O2 with continuous pulse oximetry per patient. 6. Hyponatremia chronic: Stable 7 DVT risk low: Encourage ambulation. Mild protein-calorie malnutrition 08/26/2020 11/12/2021 Encounter for support and co ordination of transition of care 05/15/2020 05/02/2021 Overview: HOSPITAL/ER FOLLOW UP Which facility: [facility] Dates of visit: 05/10-05/13/2020 Preadmission evaluation: ER with right-sided abdominal pain over 2-1/2 hours, 10 out of 10. Worse with coughing. States she vomited 20 times the day before, with episodes of diarrhea over the past 2 days. Had used Imodium which improved diarrhea. No known exposures to Covid. Also identified chest pain which started approximately 2:00 that afternoon. Subjective fever and chills, chronic cough that is unchanged. Patient was afebrile with temp of 99.4 Fahrenheit, heart rate of 95, blood pressure 147/92. O2 saturation 94% but patient was started on O2 at 2 L per nasal cannula abdominal exam with severe tenderness over epigastric and right upper quadrant and right lower quadrant. No distention. CBC showed white count of 15.2 with neutrophils of 70. Hemoglobin 14.9, platelet 227, CMP within normal limits except for sodium of 134, glucose 107, total bili 1.5, AST and ALT 5 5/277, alk phos 122, troponin negative. Lipase 170. Covid rapid test negative. Ethanol 64. Chest x-ray with generalized hyperinflation, no acute findings. CT of abdomen pelvis without contrast demonstrated severe fatty liver, mild hepatomegaly, normal gallbladder, exophytic isodense nodule on the lower pole of the right kidney, mild bilateral fatty groin hernia. Appendix considered normal. Ultrasound of gallbladder demonstrated partially distended gallbladder with a positive sonographic Kennedy sign, no gallstones. Also identified mild perihepatic ascites. In ER patient was given IV Zofran, morphine 4 mg x 2 IV, Ativan 1 mg IV x1. Primary Diagnosis/es: Acute cholecystitis Elevated LFTs Secondary Diagnosis/es: Anxiety depression Hyperlipidemia Chronic tobacco use Chronic alcohol abuse SANA Hypothyroidism COPD with emphysema Chronic back pain PTSD Chronic anemia unknown etiology Gastroesophageal reflux disease Pulmonary embolus Consultants: Surgery: Dr. Gaye Gordon testing done: ----- -Labwork: See above 05/13/2020 WBC 8.9, hemoglobin 11.4, hematocrit 36.8, elevated indices, RDW of 51.0, platelet count 171, absolute neutrophil count elevated at 7.8. Electrolytes all within normal limits except anion gap of 2, BUN of 2, creatinine 0.68 with estimated GFR of 97. Glucose 148, calcium 8.2. Bilirubin normal, AST 162, ALT 139, alk phosphatase 81 normal, total protein and albumin low 6.3, 2.1 respectively ----- -Imaging: As above 05/12/2020 hepatobiliary scan nuclear medicine: No scintigraphic evidence of cholecystitis or biliary obstruction ----- -Cardiac: ----- -Other: ----- Procedures/ Surgery: Surgery: Laparoscopic cholecystectomy with surgical findings of thickened gallbladder wall with areas of gangrene, enlarged liver with fatty infiltration ascites Hospital course: As above patient was admitted, IV fluid, pain management, taken to surgery. Patient had successful recovery and discharged in a stable condition. Instructions were to return to activity but no driving while taking narcotic medication Medication Reconciliation: Completed Patient was given oxycodone 5 mg every 12 hours #10 documented as of this encounter (statuses as of 01/31/2023) [facility]11-13-2021 History of Past illness Narrative* Problem Noted Date Diagnosed Date Resolved Date Encounter for support and co ordination of transition of care 05/02/2021 07/23/2021 Overview: Hospital discharge summary: Date of admission 05/01/2021 Date of discharge: Facility: [facility] 05/01/2021 presented to the emergency room with acute alcohol intoxication, initial alcohol level 7-8. Acknowledges over the last 5 months drinking 15 packs a day at 8% alcohol (marcin samaniego). Vital signs 96.6 F-78-18-111/73-98%. Appearance was no acute distress. WBC 7.9-Hgb 13.8-HCT 39.7-PLT 306. NA 130 2L-K3.7-CL 90 6L-CO2 26.0-BUN 20.5H- CRE 0.93-GLU 111 Admitted from ER to detox unit Active problem list: 1. Alcohol dependence: Started on phenobarbital, gabapentin as needed dicyclomine as needed, Vistaril as needed, Imodium as needed, trazodone as needed, Zofran as needed, scheduled thiamine and scheduled folic acid. 2. Tobacco abuse: Nicotine patch prescribed, tobacco withheld. 3. Marijuana abuse: Counseled 4. Anxiety depression, PTSD: Continue home medications 5. COPD with home oxygen use: Stable, continue supplements duration O2 with continuous pulse oximetry per patient. 6. Hyponatremia chronic: Stable 7 DVT risk low: Encourage ambulation. Mild protein-calorie malnutrition 08/26/2020 11/12/2021 Encounter for support and co ordination of transition of care 05/15/2020 05/02/2021 Overview: HOSPITAL/ER FOLLOW UP Which facility: [facility] Dates of visit: 05/10-05/13/2020 Preadmission evaluation: ER with right-sided abdominal pain over 2-1/2 hours, 10 out of 10. Worse with coughing. States she vomited 20 times the day before, with episodes of diarrhea over the past 2 days. Had used Imodium which improved diarrhea. No known exposures to Covid. Also identified chest pain which started approximately 2:00 that afternoon. Subjective fever and chills, chronic cough that is unchanged. Patient was afebrile with temp of 99.4 Fahrenheit, heart rate of 95, blood pressure 147/92. O2 saturation 94% but patient was started on O2 at 2 L per nasal cannula abdominal exam with severe tenderness over epigastric and right upper quadrant and right lower quadrant. No distention. CBC showed white count of 15.2 with neutrophils of 70. Hemoglobin 14.9, platelet 227, CMP within normal limits except for sodium of 134, glucose 107, total bili 1.5, AST and ALT 5 5/277, alk phos 122, troponin negative. Lipase 170. Covid rapid test negative. Ethanol 64. Chest x-ray with generalized hyperinflation, no acute findings. CT of abdomen pelvis without contrast demonstrated severe fatty liver, mild hepatomegaly, normal gallbladder, exophytic isodense nodule on the lower pole of the right kidney, mild bilateral fatty groin hernia. Appendix considered normal. Ultrasound of gallbladder demonstrated partially distended gallbladder with a positive sonographic Kennedy sign, no gallstones. Also identified mild perihepatic ascites. In ER patient was given IV Zofran, morphine 4 mg x 2 IV, Ativan 1 mg IV x1. Primary Diagnosis/es: Acute cholecystitis Elevated LFTs Secondary Diagnosis/es: Anxiety depression Hyperlipidemia Chronic tobacco use Chronic alcohol abuse SANA Hypothyroidism COPD with emphysema Chronic back pain PTSD Chronic anemia unknown etiology Gastroesophageal reflux disease Pulmonary embolus Consultants: Surgery: Dr. Gaye Gordon testing done: ----- -Labwork: See above 05/13/2020 WBC 8.9, hemoglobin 11.4, hematocrit 36.8, elevated indices, RDW of 51.0, platelet count 171, absolute neutrophil count elevated at 7.8. Electrolytes all within normal limits except anion gap of 2, BUN of 2, creatinine 0.68 with estimated GFR of 97. Glucose 148, calcium 8.2. Bilirubin normal, AST 162, ALT 139, alk phosphatase 81 normal, total protein and albumin low 6.3, 2.1 respectively ----- -Imaging: As above 05/12/2020 hepatobiliary scan nuclear medicine: No scintigraphic evidence of cholecystitis or biliary obstruction ----- -Cardiac: ----- -Other: ----- Procedures/ Surgery: Surgery: Laparoscopic cholecystectomy with surgical findings of thickened gallbladder wall with areas of gangrene, enlarged liver with fatty infiltration ascites Hospital course: As above patient was admitted, IV fluid, pain management, taken to surgery. Patient had successful recovery and discharged in a stable condition. Instructions were to return to activity but no driving while taking narcotic medication Medication Reconciliation: Completed Patient was given oxycodone 5 mg every 12 hours #10 documented as of this encounter (statuses as of 02/01/2023) [facility]11-13-2021 History of Past illness Narrative* Problem Noted Date Diagnosed Date Resolved Date Encounter for support and co ordination of transition of care 05/02/2021 07/23/2021 Overview: Hospital discharge summary: Date of admission 05/01/2021 Date of discharge: Facility: [facility] 05/01/2021 presented to the emergency room with acute alcohol intoxication, initial alcohol level 7-8. Acknowledges over the last 5 months drinking 15 packs a day at 8% alcohol (marcin samaniego). Vital signs 96.6 F-78-18-111/73-98%. Appearance was no acute distress. WBC 7.9-Hgb 13.8-HCT 39.7-PLT 306. NA 130 2L-K3.7-CL 90 6L-CO2 26.0-BUN 20.5H- CRE 0.93-GLU 111 Admitted from ER to detox unit Active problem list: 1. Alcohol dependence: Started on phenobarbital, gabapentin as needed dicyclomine as needed, Vistaril as needed, Imodium as needed, trazodone as needed, Zofran as needed, scheduled thiamine and scheduled folic acid. 2. Tobacco abuse: Nicotine patch prescribed, tobacco withheld. 3. Marijuana abuse: Counseled 4. Anxiety depression, PTSD: Continue home medications 5. COPD with home oxygen use: Stable, continue supplements duration O2 with continuous pulse oximetry per patient. 6. Hyponatremia chronic: Stable 7 DVT risk low: Encourage ambulation. Mild protein-calorie malnutrition 08/26/2020 11/12/2021 Encounter for support and co ordination of transition of care 05/15/2020 05/02/2021 Overview: HOSPITAL/ER FOLLOW UP Which facility: [facility] Dates of visit: 05/10-05/13/2020 Preadmission evaluation: ER with right-sided abdominal pain over 2-1/2 hours, 10 out of 10. Worse with coughing. States she vomited 20 times the day before, with episodes of diarrhea over the past 2 days. Had used Imodium which improved diarrhea. No known exposures to Covid. Also identified chest pain which started approximately 2:00 that afternoon. Subjective fever and chills, chronic cough that is unchanged. Patient was afebrile with temp of 99.4 Fahrenheit, heart rate of 95, blood pressure 147/92. O2 saturation 94% but patient was started on O2 at 2 L per nasal cannula abdominal exam with severe tenderness over epigastric and right upper quadrant and right lower quadrant. No distention. CBC showed white count of 15.2 with neutrophils of 70. Hemoglobin 14.9, platelet 227, CMP within normal limits except for sodium of 134, glucose 107, total bili 1.5, AST and ALT 5 5/277, alk phos 122, troponin negative. Lipase 170. Covid rapid test negative. Ethanol 64. Chest x-ray with generalized hyperinflation, no acute findings. CT of abdomen pelvis without contrast demonstrated severe fatty liver, mild hepatomegaly, normal gallbladder, exophytic isodense nodule on the lower pole of the right kidney, mild bilateral fatty groin hernia. Appendix considered normal. Ultrasound of gallbladder demonstrated partially distended gallbladder with a positive sonographic Kennedy sign, no gallstones. Also identified mild perihepatic ascites. In ER patient was given IV Zofran, morphine 4 mg x 2 IV, Ativan 1 mg IV x1. Primary Diagnosis/es: Acute cholecystitis Elevated LFTs Secondary Diagnosis/es: Anxiety depression Hyperlipidemia Chronic tobacco use Chronic alcohol abuse SANA Hypothyroidism COPD with emphysema Chronic back pain PTSD Chronic anemia unknown etiology Gastroesophageal reflux disease Pulmonary embolus Consultants: Surgery: Dr. Gaye Gordon testing done: ----- -Labwork: See above 05/13/2020 WBC 8.9, hemoglobin 11.4, hematocrit 36.8, elevated indices, RDW of 51.0, platelet count 171, absolute neutrophil count elevated at 7.8. Electrolytes all within normal limits except anion gap of 2, BUN of 2, creatinine 0.68 with estimated GFR of 97. Glucose 148, calcium 8.2. Bilirubin normal, AST 162, ALT 139, alk phosphatase 81 normal, total protein and albumin low 6.3, 2.1 respectively ----- -Imaging: As above 05/12/2020 hepatobiliary scan nuclear medicine: No scintigraphic evidence of cholecystitis or biliary obstruction ----- -Cardiac: ----- -Other: ----- Procedures/ Surgery: Surgery: Laparoscopic cholecystectomy with surgical findings of thickened gallbladder wall with areas of gangrene, enlarged liver with fatty infiltration ascites Hospital course: As above patient was admitted, IV fluid, pain management, taken to surgery. Patient had successful recovery and discharged in a stable condition. Instructions were to return to activity but no driving while taking narcotic medication Medication Reconciliation: Completed Patient was given oxycodone 5 mg every 12 hours #10 documented as of this encounter (statuses as of 02/03/2023) [facility]11-13-2021 History of Past illness Narrative* Problem Noted Date Diagnosed Date Resolved Date Encounter for support and co ordination of transition of care 05/02/2021 07/23/2021 Overview: Hospital discharge summary: Date of admission 05/01/2021 Date of discharge: Facility: [facility] 05/01/2021 presented to the emergency room with acute alcohol intoxication, initial alcohol level 7-8. Acknowledges over the last 5 months drinking 15 packs a day at 8% alcohol (nataidan garciaalfa). Vital signs 96.6 F-78-18-111/73-98%. Appearance was no acute distress. WBC 7.9-Hgb 13.8-HCT 39.7-PLT 306. NA 130 2L-K3.7-CL 90 6L-CO2 26.0-BUN 20.5H- CRE 0.93-GLU 111 Admitted from ER to detox unit Active problem list: 1. Alcohol dependence: Started on phenobarbital, gabapentin as needed dicyclomine as needed, Vistaril as needed, Imodium as needed, trazodone as needed, Zofran as needed, scheduled thiamine and scheduled folic acid. 2. Tobacco abuse: Nicotine patch prescribed, tobacco withheld. 3. Marijuana abuse: Counseled 4. Anxiety depression, PTSD: Continue home medications 5. COPD with home oxygen use: Stable, continue supplements duration O2 with continuous pulse oximetry per patient. 6. Hyponatremia chronic: Stable 7 DVT risk low: Encourage ambulation. Mild protein-calorie malnutrition 08/26/2020 11/12/2021 Encounter for support and co ordination of transition of care 05/15/2020 05/02/2021 Overview: HOSPITAL/ER FOLLOW UP Which facility: [facility] Dates of visit: 05/10-05/13/2020 Preadmission evaluation: ER with right-sided abdominal pain over 2-1/2 hours, 10 out of 10. Worse with coughing. States she vomited 20 times the day before, with episodes of diarrhea over the past 2 days. Had used Imodium which improved diarrhea. No known exposures to Covid. Also identified chest pain which started approximately 2:00 that afternoon. Subjective fever and chills, chronic cough that is unchanged. Patient was afebrile with temp of 99.4 Fahrenheit, heart rate of 95, blood pressure 147/92. O2 saturation 94% but patient was started on O2 at 2 L per nasal cannula abdominal exam with severe tenderness over epigastric and right upper quadrant and right lower quadrant. No distention. CBC showed white count of 15.2 with neutrophils of 70. Hemoglobin 14.9, platelet 227, CMP within normal limits except for sodium of 134, glucose 107, total bili 1.5, AST and ALT 5 5/277, alk phos 122, troponin negative. Lipase 170. Covid rapid test negative. Ethanol 64. Chest x-ray with generalized hyperinflation, no acute findings. CT of abdomen pelvis without contrast demonstrated severe fatty liver, mild hepatomegaly, normal gallbladder, exophytic isodense nodule on the lower pole of the right kidney, mild bilateral fatty groin hernia. Appendix considered normal. Ultrasound of gallbladder demonstrated partially distended gallbladder with a positive sonographic Kennedy sign, no gallstones. Also identified mild perihepatic ascites. In ER patient was given IV Zofran, morphine 4 mg x 2 IV, Ativan 1 mg IV x1. Primary Diagnosis/es: Acute cholecystitis Elevated LFTs Secondary Diagnosis/es: Anxiety depression Hyperlipidemia Chronic tobacco use Chronic alcohol abuse SANA Hypothyroidism COPD with emphysema Chronic back pain PTSD Chronic anemia unknown etiology Gastroesophageal reflux disease Pulmonary embolus Consultants: Surgery: Dr. Gaye Gordon testing done: ----- -Labwork: See above 05/13/2020 WBC 8.9, hemoglobin 11.4, hematocrit 36.8, elevated indices, RDW of 51.0, platelet count 171, absolute neutrophil count elevated at 7.8. Electrolytes all within normal limits except anion gap of 2, BUN of 2, creatinine 0.68 with estimated GFR of 97. Glucose 148, calcium 8.2. Bilirubin normal, AST 162, ALT 139, alk phosphatase 81 normal, total protein and albumin low 6.3, 2.1 respectively ----- -Imaging: As above 05/12/2020 hepatobiliary scan nuclear medicine: No scintigraphic evidence of cholecystitis or biliary obstruction ----- -Cardiac: ----- -Other: ----- Procedures/ Surgery: Surgery: Laparoscopic cholecystectomy with surgical findings of thickened gallbladder wall with areas of gangrene, enlarged liver with fatty infiltration ascites Hospital course: As above patient was admitted, IV fluid, pain management, taken to surgery. Patient had successful recovery and discharged in a stable condition. Instructions were to return to activity but no driving while taking narcotic medication Medication Reconciliation: Completed Patient was given oxycodone 5 mg every 12 hours #10 documented as of this encounter (statuses as of 02/08/2023) [facility]11-13-2021 History of Past illness Narrative* Problem Noted Date Diagnosed Date Resolved Date Encounter for support and co ordination of transition of care 05/02/2021 07/23/2021 Overview: Hospital discharge summary: Date of admission 05/01/2021 Date of discharge: Facility: [facility] 05/01/2021 presented to the emergency room with acute alcohol intoxication, initial alcohol level 7-8. Acknowledges over the last 5 months drinking 15 packs a day at 8% alcohol (marcin samaniego). Vital signs 96.6 F-78-18-111/73-98%. Appearance was no acute distress. WBC 7.9-Hgb 13.8-HCT 39.7-PLT 306. NA 130 2L-K3.7-CL 90 6L-CO2 26.0-BUN 20.5H- CRE 0.93-GLU 111 Admitted from ER to detox unit Active problem list: 1. Alcohol dependence: Started on phenobarbital, gabapentin as needed dicyclomine as needed, Vistaril as needed, Imodium as needed, trazodone as needed, Zofran as needed, scheduled thiamine and scheduled folic acid. 2. Tobacco abuse: Nicotine patch prescribed, tobacco withheld. 3. Marijuana abuse: Counseled 4. Anxiety depression, PTSD: Continue home medications 5. COPD with home oxygen use: Stable, continue supplements duration O2 with continuous pulse oximetry per patient. 6. Hyponatremia chronic: Stable 7 DVT risk low: Encourage ambulation. Mild protein-calorie malnutrition 08/26/2020 11/12/2021 Encounter for support and co ordination of transition of care 05/15/2020 05/02/2021 Overview: HOSPITAL/ER FOLLOW UP Which facility: [facility] Dates of visit: 05/10-05/13/2020 Preadmission evaluation: ER with right-sided abdominal pain over 2-1/2 hours, 10 out of 10. Worse with coughing. States she vomited 20 times the day before, with episodes of diarrhea over the past 2 days. Had used Imodium which improved diarrhea. No known exposures to Covid. Also identified chest pain which started approximately 2:00 that afternoon. Subjective fever and chills, chronic cough that is unchanged. Patient was afebrile with temp of 99.4 Fahrenheit, heart rate of 95, blood pressure 147/92. O2 saturation 94% but patient was started on O2 at 2 L per nasal cannula abdominal exam with severe tenderness over epigastric and right upper quadrant and right lower quadrant. No distention. CBC showed white count of 15.2 with neutrophils of 70. Hemoglobin 14.9, platelet 227, CMP within normal limits except for sodium of 134, glucose 107, total bili 1.5, AST and ALT 5 5/277, alk phos 122, troponin negative. Lipase 170. Covid rapid test negative. Ethanol 64. Chest x-ray with generalized hyperinflation, no acute findings. CT of abdomen pelvis without contrast demonstrated severe fatty liver, mild hepatomegaly, normal gallbladder, exophytic isodense nodule on the lower pole of the right kidney, mild bilateral fatty groin hernia. Appendix considered normal. Ultrasound of gallbladder demonstrated partially distended gallbladder with a positive sonographic Kennedy sign, no gallstones. Also identified mild perihepatic ascites. In ER patient was given IV Zofran, morphine 4 mg x 2 IV, Ativan 1 mg IV x1. Primary Diagnosis/es: Acute cholecystitis Elevated LFTs Secondary Diagnosis/es: Anxiety depression Hyperlipidemia Chronic tobacco use Chronic alcohol abuse SANA Hypothyroidism COPD with emphysema Chronic back pain PTSD Chronic anemia unknown etiology Gastroesophageal reflux disease Pulmonary embolus Consultants: Surgery: Dr. Gaye Gordon testing done: ----- -Labwork: See above 05/13/2020 WBC 8.9, hemoglobin 11.4, hematocrit 36.8, elevated indices, RDW of 51.0, platelet count 171, absolute neutrophil count elevated at 7.8. Electrolytes all within normal limits except anion gap of 2, BUN of 2, creatinine 0.68 with estimated GFR of 97. Glucose 148, calcium 8.2. Bilirubin normal, AST 162, ALT 139, alk phosphatase 81 normal, total protein and albumin low 6.3, 2.1 respectively ----- -Imaging: As above 05/12/2020 hepatobiliary scan nuclear medicine: No scintigraphic evidence of cholecystitis or biliary obstruction ----- -Cardiac: ----- -Other: ----- Procedures/ Surgery: Surgery: Laparoscopic cholecystectomy with surgical findings of thickened gallbladder wall with areas of gangrene, enlarged liver with fatty infiltration ascites Hospital course: As above patient was admitted, IV fluid, pain management, taken to surgery. Patient had successful recovery and discharged in a stable condition. Instructions were to return to activity but no driving while taking narcotic medication Medication Reconciliation: Completed Patient was given oxycodone 5 mg every 12 hours #10 documented as of this encounter (statuses as of 02/14/2023) [facility]11-13-2021 History of Past illness Narrative* Problem Noted Date Diagnosed Date Resolved Date Encounter for support and co ordination of transition of care 05/02/2021 07/23/2021 Overview: Hospital discharge summary: Date of admission 05/01/2021 Date of discharge: Facility: [facility] 05/01/2021 presented to the emergency room with acute alcohol intoxication, initial alcohol level 7-8. Acknowledges over the last 5 months drinking 15 packs a day at 8% alcohol (marcin samaniego). Vital signs 96.6 F-78-18-111/73-98%. Appearance was no acute distress. WBC 7.9-Hgb 13.8-HCT 39.7-PLT 306. NA 130 2L-K3.7-CL 90 6L-CO2 26.0-BUN 20.5H- CRE 0.93-GLU 111 Admitted from ER to detox unit Active problem list: 1. Alcohol dependence: Started on phenobarbital, gabapentin as needed dicyclomine as needed, Vistaril as needed, Imodium as needed, trazodone as needed, Zofran as needed, scheduled thiamine and scheduled folic acid. 2. Tobacco abuse: Nicotine patch prescribed, tobacco withheld. 3. Marijuana abuse: Counseled 4. Anxiety depression, PTSD: Continue home medications 5. COPD with home oxygen use: Stable, continue supplements duration O2 with continuous pulse oximetry per patient. 6. Hyponatremia chronic: Stable 7 DVT risk low: Encourage ambulation. Mild protein-calorie malnutrition 08/26/2020 11/12/2021 Encounter for support and co ordination of transition of care 05/15/2020 05/02/2021 Overview: HOSPITAL[facility] FO[facility] [facility] Dates of visit: 05/10-05/13/2020 Preadmission evaluation: ER with right-sided abdominal pain over 2-1/2 hours, 10 out of 10. Worse with coughing. States she vomited 20 times the day before, with episodes of diarrhea over the past 2 days. Had used Imodium which improved diarrhea. No known exposures to Covid. Also identified chest pain which started approximately 2:00 that afternoon. Subjective fever and chills, chronic cough that is unchanged. Patient was afebrile with temp of 99.4 Fahrenheit, heart rate of 95, blood pressure 147/92. O2 saturation 94% but patient was started on O2 at 2 L per nasal cannula abdominal exam with severe tenderness over epigastric and right upper quadrant and right lower quadrant. No distention. CBC showed white count of 15.2 with neutrophils of 70. Hemoglobin 14.9, platelet 227, CMP within normal limits except for sodium of 134, glucose 107, total bili 1.5, AST and ALT 5 5/277, alk phos 122, troponin negative. Lipase 170. Covid rapid test negative. Ethanol 64. Chest x-ray with generalized hyperinflation, no acute findings. CT of abdomen pelvis without contrast demonstrated severe fatty liver, mild hepatomegaly, normal gallbladder, exophytic isodense nodule on the lower pole of the right kidney, mild bilateral fatty groin hernia. Appendix considered normal. Ultrasound of gallbladder demonstrated partially distended gallbladder with a positive sonographic Kennedy sign, no gallstones. Also identified mild perihepatic ascites. In ER patient was given IV Zofran, morphine 4 mg x 2 IV, Ativan 1 mg IV x1. Primary Diagnosis/es: Acute cholecystitis Elevated LFTs Secondary Diagnosis/es: Anxiety depression Hyperlipidemia Chronic tobacco use Chronic alcohol abuse SANA Hypothyroidism COPD with emphysema Chronic back pain PTSD Chronic anemia unknown etiology Gastroesophageal reflux disease Pulmonary embolus Consultants: Surgery: Dr. Gaye Gordon testing done: ----- -Labwork: See above 05/13/2020 WBC 8.9, hemoglobin 11.4, hematocrit 36.8, elevated indices, RDW of 51.0, platelet count 171, absolute neutrophil count elevated at 7.8. Electrolytes all within normal limits except anion gap of 2, BUN of 2, creatinine 0.68 with estimated GFR of 97. Glucose 148, calcium 8.2. Bilirubin normal, AST 162, ALT 139, alk phosphatase 81 normal, total protein and albumin low 6.3, 2.1 respectively ----- -Imaging: As above 05/12/2020 hepatobiliary scan nuclear medicine: No scintigraphic evidence of cholecystitis or biliary obstruction ----- -Cardiac: ----- -Other: ----- Procedures/ Surgery: Surgery: Laparoscopic cholecystectomy with surgical findings of thickened gallbladder wall with areas of gangrene, enlarged liver with fatty infiltration ascites Hospital course: As above patient was admitted, IV fluid, pain management, taken to surgery. Patient had successful recovery and discharged in a stable condition. Instructions were to return to activity but no driving while taking narcotic medication Medication Reconciliation: Completed Patient was given oxycodone 5 mg every 12 hours #10 documented as of this encounter (statuses as of 02/15/2023) [facility]11-13-2021 History of Past illness Narrative* Problem Noted Date Diagnosed Date Resolved Date Encounter for support and co ordination of transition of care 05/02/2021 07/23/2021 Overview: Hospital discharge summary: Date of admission 05/01/2021 Date of discharge: Facility: [facility] 05/01/2021 presented to the emergency room with acute alcohol intoxication, initial alcohol level 7-8. Acknowledges over the last 5 months drinking 15 packs a day at 8% alcohol (marcin samaniego). Vital signs 96.6 [id number]-[id number]/73-98%. Appearance was no acute distress. WBC 7.9-Hgb 13.8-HCT 39.7-PLT 306. NA 130 2L-K3.7-CL 90 6L-CO2 26.0-BUN 20.5H- CRE 0.93-GLU 111 Admitted from ER to detox unit Active problem list: 1. Alcohol dependence: Started on phenobarbital, gabapentin as needed dicyclomine as needed, Vistaril as needed, Imodium as needed, trazodone as needed, Zofran as needed, scheduled thiamine and scheduled folic acid. 2. Tobacco abuse: Nicotine patch prescribed, tobacco withheld. 3. Marijuana abuse: Counseled 4. Anxiety depression, PTSD: Continue home medications 5. COPD with home oxygen use: Stable, continue supplements duration O2 with continuous pulse oximetry per patient. 6. Hyponatremia chronic: Stable 7 DVT risk low: Encourage ambulation. Mild protein-calorie malnutrition 08/26/2020 11/12/2021 Encounter for support and co ordination of transition of care 05/15/2020 05/02/2021 Overview: HOSPITAL/ER FOLLOW UP Which facility: [facility] Dates of visit: 05/10-05/13/2020 Preadmission evaluation: ER with right-sided abdominal pain over 2-1/2 hours, 10 out of 10. Worse with coughing. States she vomited 20 times the day before, with episodes of diarrhea over the past 2 days. Had used Imodium which improved diarrhea. No known exposures to Covid. Also identified chest pain which started approximately 2:00 that afternoon. Subjective fever and chills, chronic cough that is unchanged. Patient was afebrile with temp of 99.4 Fahrenheit, heart rate of 95, blood pressure 147/92. O2 saturation 94% but patient was started on O2 at 2 L per nasal cannula abdominal exam with severe tenderness over epigastric and right upper quadrant and right lower quadrant. No distention. CBC showed white count of 15.2 with neutrophils of 70. Hemoglobin 14.9, platelet 227, CMP within normal limits except for sodium of 134, glucose 107, total bili 1.5, AST and ALT 5 5/277, alk phos 122, troponin negative. Lipase 170. Covid rapid test negative. Ethanol 64. Chest x-ray with generalized hyperinflation, no acute findings. CT of abdomen pelvis without contrast demonstrated severe fatty liver, mild hepatomegaly, normal gallbladder, exophytic isodense nodule on the lower pole of the right kidney, mild bilateral fatty groin hernia. Appendix considered normal. Ultrasound of gallbladder demonstrated partially distended gallbladder with a positive sonographic Kennedy sign, no gallstones. Also identified mild perihepatic ascites. In ER patient was given IV Zofran, morphine 4 mg x 2 IV, Ativan 1 mg IV x1. Primary Diagnosis/es: Acute cholecystitis Elevated LFTs Secondary Diagnosis/es: Anxiety depression Hyperlipidemia Chronic tobacco use Chronic alcohol abuse SANA Hypothyroidism COPD with emphysema Chronic back pain PTSD Chronic anemia unknown etiology Gastroesophageal reflux disease Pulmonary embolus Consultants: Surgery: Dr. Gaye Gordon testing done: ----- -Labwork: See above 05/13/2020 WBC 8.9, hemoglobin 11.4, hematocrit 36.8, elevated indices, RDW of 51.0, platelet count 171, absolute neutrophil count elevated at 7.8. Electrolytes all within normal limits except anion gap of 2, BUN of 2, creatinine 0.68 with estimated GFR of 97. Glucose 148, calcium 8.2. Bilirubin normal, AST 162, ALT 139, alk phosphatase 81 normal, total protein and albumin low 6.3, 2.1 respectively ----- -Imaging: As above 05/12/2020 hepatobiliary scan nuclear medicine: No scintigraphic evidence of cholecystitis or biliary obstruction ----- -Cardiac: ----- -Other: ----- Procedures/ Surgery: Surgery: Laparoscopic cholecystectomy with surgical findings of thickened gallbladder wall with areas of gangrene, enlarged liver with fatty infiltration ascites Hospital course: As above patient was admitted, IV fluid, pain management, taken to surgery. Patient had successful recovery and discharged in a stable condition. Instructions were to return to activity but no driving while taking narcotic medication Medication Reconciliation: Completed Patient was given oxycodone 5 mg every 12 hours #10 documented as of this encounter (statuses as of 02/16/2023) [facility]11-13-2021 History of Past illness Narrative* Problem Noted Date Diagnosed Date Resolved Date Encounter for support and co ordination of transition of care 05/02/2021 07/23/2021 Overview: Hospital discharge summary: Date of admission 05/01/2021 Date of discharge: Facility: [facility] 05/01/2021 presented to the emergency room with acute alcohol intoxication, initial alcohol level 7-8. Acknowledges over the last 5 months drinking 15 packs a day at 8% alcohol (marcin samaniego). Vital signs 96.6 [id number]-78-18-111/73-98%. Appearance was no acute distress. WBC 7.9-Hgb 13.8-HCT 39.7-PLT 306. NA 130 2L-K3.7-CL 90 6L-CO2 26.0-BUN 20.5H- CRE 0.93-GLU 111 Admitted from ER to detox unit Active problem list: 1. Alcohol dependence: Started on phenobarbital, gabapentin as needed dicyclomine as needed, Vistaril as needed, Imodium as needed, trazodone as needed, Zofran as needed, scheduled thiamine and scheduled folic acid. 2. Tobacco abuse: Nicotine patch prescribed, tobacco withheld. 3. Marijuana abuse: Counseled 4. Anxiety depression, PTSD: Continue home medications 5. COPD with home oxygen use: Stable, continue supplements duration O2 with continuous pulse oximetry per patient. 6. Hyponatremia chronic: Stable 7 DVT risk low: Encourage ambulation. Mild protein-calorie malnutrition 08/26/2020 11/12/2021 Encounter for support and co ordination of transition of care 05/15/2020 05/02/2021 Overview: HOSPITAL/ER FOLLOW UP Which facility: [facility] Dates of visit: 05/10-05/13/2020 Preadmission evaluation: ER with right-sided abdominal pain over 2-1/2 hours, 10 out of 10. Worse with coughing. States she vomited 20 times the day before, with episodes of diarrhea over the past 2 days. Had used Imodium which improved diarrhea. No known exposures to Covid. Also identified chest pain which started approximately 2:00 that afternoon. Subjective fever and chills, chronic cough that is unchanged. Patient was afebrile with temp of 99.4 Fahrenheit, heart rate of 95, blood pressure 147/92. O2 saturation 94% but patient was started on O2 at 2 L per nasal cannula abdominal exam with severe tenderness over epigastric and right upper quadrant and right lower quadrant. No distention. CBC showed white count of 15.2 with neutrophils of 70. Hemoglobin 14.9, platelet 227, CMP within normal limits except for sodium of 134, glucose 107, total bili 1.5, AST and ALT 5 5/277, alk phos 122, troponin negative. Lipase 170. Covid rapid test negative. Ethanol 64. Chest x-ray with generalized hyperinflation, no acute findings. CT of abdomen pelvis without contrast demonstrated severe fatty liver, mild hepatomegaly, normal gallbladder, exophytic isodense nodule on the lower pole of the right kidney, mild bilateral fatty groin hernia. Appendix considered normal. Ultrasound of gallbladder demonstrated partially distended gallbladder with a positive sonographic Kennedy sign, no gallstones. Also identified mild perihepatic ascites. In ER patient was given IV Zofran, morphine 4 mg x 2 IV, Ativan 1 mg IV x1. Primary Diagnosis/es: Acute cholecystitis Elevated LFTs Secondary Diagnosis/es: Anxiety depression Hyperlipidemia Chronic tobacco use Chronic alcohol abuse SANA Hypothyroidism COPD with emphysema Chronic back pain PTSD Chronic anemia unknown etiology Gastroesophageal reflux disease Pulmonary embolus Consultants: Surgery: Dr. Gaye Gordon testing done: ----- -Labwork: See above 05/13/2020 WBC 8.9, hemoglobin 11.4, hematocrit 36.8, elevated indices, RDW of 51.0, platelet count 171, absolute neutrophil count elevated at 7.8. Electrolytes all within normal limits except anion gap of 2, BUN of 2, creatinine 0.68 with estimated GFR of 97. Glucose 148, calcium 8.2. Bilirubin normal, AST 162, ALT 139, alk phosphatase 81 normal, total protein and albumin low 6.3, 2.1 respectively ----- -Imaging: As above 05/12/2020 hepatobiliary scan nuclear medicine: No scintigraphic evidence of cholecystitis or biliary obstruction ----- -Cardiac: ----- -Other: ----- Procedures/ Surgery: Surgery: Laparoscopic cholecystectomy with surgical findings of thickened gallbladder wall with areas of gangrene, enlarged liver with fatty infiltration ascites Hospital course: As above patient was admitted, IV fluid, pain management, taken to surgery. Patient had successful recovery and discharged in a stable condition. Instructions were to return to activity but no driving while taking narcotic medication Medication Reconciliation: Completed Patient was given oxycodone 5 mg every 12 hours #10 documented as of this encounter (statuses as of 03/01/2023) [facility]11-13-2021 History of Past illness Narrative* Problem Noted Date Diagnosed Date Resolved Date Encounter for support and co ordination of transition of care 05/02/2021 07/23/2021 Overview: Hospital discharge summary: Date of admission 05/01/2021 Date of discharge: Facility: [facility] 05/01/2021 presented to the emergency room with acute alcohol intoxication, initial alcohol level 7-8. Acknowledges over the last 5 months drinking 15 packs a day at 8% alcohol (marcin samaniego). Vital signs 96.6 F-78-18-111/73-98%. Appearance was no acute distress. WBC 7.9-Hgb 13.8-HCT 39.7-PLT 306. NA 130 2L-K3.7-CL 90 6L-CO2 26.0-BUN 20.5H- CRE 0.93-GLU 111 Admitted from ER to detox unit Active problem list: 1. Alcohol dependence: Started on phenobarbital, gabapentin as needed dicyclomine as needed, Vistaril as needed, Imodium as needed, trazodone as needed, Zofran as needed, scheduled thiamine and scheduled folic acid. 2. Tobacco abuse: Nicotine patch prescribed, tobacco withheld. 3. Marijuana abuse: Counseled 4. Anxiety depression, PTSD: Continue home medications 5. COPD with home oxygen use: Stable, continue supplements duration O2 with continuous pulse oximetry per patient. 6. Hyponatremia chronic: Stable 7 DVT risk low: Encourage ambulation. Mild protein-calorie malnutrition 08/26/2020 11/12/2021 Encounter for support and co ordination of transition of care 05/15/2020 05/02/2021 Overview: HOSPITAL/ER FOLLOW UP Which facility: [facility] Dates of visit: 05/10-05/13/2020 Preadmission evaluation: ER with right-sided abdominal pain over 2-1/2 hours, 10 out of 10. Worse with coughing. States she vomited 20 times the day before, with episodes of diarrhea over the past 2 days. Had used Imodium which improved diarrhea. No known exposures to Covid. Also identified chest pain which started approximately 2:00 that afternoon. Subjective fever and chills, chronic cough that is unchanged. Patient was afebrile with temp of 99.4 Fahrenheit, heart rate of 95, blood pressure 147/92. O2 saturation 94% but patient was started on O2 at 2 L per nasal cannula abdominal exam with severe tenderness over epigastric and right upper quadrant and right lower quadrant. No distention. CBC showed white count of 15.2 with neutrophils of 70. Hemoglobin 14.9, platelet 227, CMP within normal limits except for sodium of 134, glucose 107, total bili 1.5, AST and ALT 5 5/277, alk phos 122, troponin negative. Lipase 170. Covid rapid test negative. Ethanol 64. Chest x-ray with generalized hyperinflation, no acute findings. CT of abdomen pelvis without contrast demonstrated severe fatty liver, mild hepatomegaly, normal gallbladder, exophytic isodense nodule on the lower pole of the right kidney, mild bilateral fatty groin hernia. Appendix considered normal. Ultrasound of gallbladder demonstrated partially distended gallbladder with a positive sonographic Kennedy sign, no gallstones. Also identified mild perihepatic ascites. In ER patient was given IV Zofran, morphine 4 mg x 2 IV, Ativan 1 mg IV x1. Primary Diagnosis/es: Acute cholecystitis Elevated LFTs Secondary Diagnosis/es: Anxiety depression Hyperlipidemia Chronic tobacco use Chronic alcohol abuse SANA Hypothyroidism COPD with emphysema Chronic back pain PTSD Chronic anemia unknown etiology Gastroesophageal reflux disease Pulmonary embolus Consultants: Surgery: Dr. Gaye Gordon testing done: ----- -Labwork: See above 05/13/2020 WBC 8.9, hemoglobin 11.4, hematocrit 36.8, elevated indices, RDW of 51.0, platelet count 171, absolute neutrophil count elevated at 7.8. Electrolytes all within normal limits except anion gap of 2, BUN of 2, creatinine 0.68 with estimated GFR of 97. Glucose 148, calcium 8.2. Bilirubin normal, AST 162, ALT 139, alk phosphatase 81 normal, total protein and albumin low 6.3, 2.1 respectively ----- -Imaging: As above 05/12/2020 hepatobiliary scan nuclear medicine: No scintigraphic evidence of cholecystitis or biliary obstruction ----- -Cardiac: ----- -Other: ----- Procedures/ Surgery: Surgery: Laparoscopic cholecystectomy with surgical findings of thickened gallbladder wall with areas of gangrene, enlarged liver with fatty infiltration ascites Hospital course: As above patient was admitted, IV fluid, pain management, taken to surgery. Patient had successful recovery and discharged in a stable condition. Instructions were to return to activity but no driving while taking narcotic medication Medication Reconciliation: Completed Patient was given oxycodone 5 mg every 12 hours #10 documented as of this encounter (statuses as of 03/09/2023) [facility]11-13-2021 History of Past illness Narrative* Problem Noted Date Diagnosed Date Resolved Date Encounter for support and co ordination of transition of care 05/02/2021 07/23/2021 Overview: Hospital discharge summary: Date of admission 05/01/2021 Date of discharge: Facility: [facility] 05/01/2021 presented to the emergency room with acute alcohol intoxication, initial alcohol level 7-8. Acknowledges over the last 5 months drinking 15 packs a day at 8% alcohol (natty daddy). Vital signs 96.6 F-78-18-111/73-98%. Appearance was no acute distress. WBC 7.9-Hgb 13.8-HCT 39.7-PLT 306. NA 130 2L-K3.7-CL 90 6L-CO2 26.0-BUN 20.5H- CRE 0.93-GLU 111 Admitted from ER to detox unit Active problem list: 1. Alcohol dependence: Started on phenobarbital, gabapentin as needed dicyclomine as needed, Vistaril as needed, Imodium as needed, trazodone as needed, Zofran as needed, scheduled thiamine and scheduled folic acid. 2. Tobacco abuse: Nicotine patch prescribed, tobacco withheld. 3. Marijuana abuse: Counseled 4. Anxiety depression, PTSD: Continue home medications 5. COPD with home oxygen use: Stable, continue supplements duration O2 with continuous pulse oximetry per patient. 6. Hyponatremia chronic: Stable 7 DVT risk low: Encourage ambulation. Mild protein-calorie malnutrition 08/26/2020 11/12/2021 Encounter for support and co ordination of transition of care 05/15/2020 05/02/2021 Overview: HOSPITAL/ER FOLLOW UP Which facility: [facility] Dates of visit: 05/10-05/13/2020 Preadmission evaluation: ER with right-sided abdominal pain over 2-1/2 hours, 10 out of 10. Worse with coughing. States she vomited 20 times the day before, with episodes of diarrhea over the past 2 days. Had used Imodium which improved diarrhea. No known exposures to Covid. Also identified chest pain which started approximately 2:00 that afternoon. Subjective fever and chills, chronic cough that is unchanged. Patient was afebrile with temp of 99.4 Fahrenheit, heart rate of 95, blood pressure 147/92. O2 saturation 94% but patient was started on O2 at 2 L per nasal cannula abdominal exam with severe tenderness over epigastric and right upper quadrant and right lower quadrant. No distention. CBC showed white count of 15.2 with neutrophils of 70. Hemoglobin 14.9, platelet 227, CMP within normal limits except for sodium of 134, glucose 107, total bili 1.5, AST and ALT 5 /277, alk phos 122, troponin negative. Lipase 170. Covid rapid test negative. Ethanol 64. Chest x-ray with generalized hyperinflation, no acute findings. CT of abdomen pelvis without contrast demonstrated severe fatty liver, mild hepatomegaly, normal gallbladder, exophytic isodense nodule on the lower pole of the right kidney, mild bilateral fatty groin hernia. Appendix considered normal. Ultrasound of gallbladder demonstrated partially distended gallbladder with a positive sonographic Kennedy sign, no gallstones. Also identified mild perihepatic ascites. In ER patient was given IV Zofran, morphine 4 mg x 2 IV, Ativan 1 mg IV x1. Primary Diagnosis/es: Acute cholecystitis Elevated LFTs Secondary Diagnosis/es: Anxiety depression Hyperlipidemia Chronic tobacco use Chronic alcohol abuse SANA Hypothyroidism COPD with emphysema Chronic back pain PTSD Chronic anemia unknown etiology Gastroesophageal reflux disease Pulmonary embolus Consultants: Surgery: Dr. Gaye Gordon testing done: ----- -Labwork: See above 05/13/2020 WBC 8.9, hemoglobin 11.4, hematocrit 36.8, elevated indices, RDW of 51.0, platelet count 171, absolute neutrophil count elevated at 7.8. Electrolytes all within normal limits except anion gap of 2, BUN of 2, creatinine 0.68 with estimated GFR of 97. Glucose 148, calcium 8.2. Bilirubin normal, AST 162, ALT 139, alk phosphatase 81 normal, total protein and albumin low 6.3, 2.1 respectively ----- -Imaging: As above 05/12/2020 hepatobiliary scan nuclear medicine: No scintigraphic evidence of cholecystitis or biliary obstruction ----- -Cardiac: ----- -Other: ----- Procedures/ Surgery: Surgery: Laparoscopic cholecystectomy with surgical findings of thickened gallbladder wall with areas of gangrene, enlarged liver with fatty infiltration ascites Hospital course: As above patient was admitted, IV fluid, pain management, taken to surgery. Patient had successful recovery and discharged in a stable condition. Instructions were to return to activity but no driving while taking narcotic medication Medication Reconciliation: Completed Patient was given oxycodone 5 mg every 12 hours #10 documented as of this encounter (statuses as of 03/12/2023) [facility]11-13-2021 History of Past illness Narrative* Problem Noted Date Diagnosed Date Resolved Date Encounter for support and co ordination of transition of care 05/02/2021 07/23/2021 Overview: Hospital discharge summary: Date of admission 05/01/2021 Date of discharge: Facility: [facility] 05/01/2021 presented to the emergency room with acute alcohol intoxication, initial alcohol level 7-8. Acknowledges over the last 5 months drinking 15 packs a day at 8% alcohol (marcin samaniego). Vital signs 96.6 F-78-18-111/73-98%. Appearance was no acute distress. WBC 7.9-Hgb 13.8-HCT 39.7-PLT 306. NA 130 2L-K3.7-CL 90 6L-CO2 26.0-BUN 20.5H- CRE 0.93-GLU 111 Admitted from ER to detox unit Active problem list: 1. Alcohol dependence: Started on phenobarbital, gabapentin as needed dicyclomine as needed, Vistaril as needed, Imodium as needed, trazodone as needed, Zofran as needed, scheduled thiamine and scheduled folic acid. 2. Tobacco abuse: Nicotine patch prescribed, tobacco withheld. 3. Marijuana abuse: Counseled 4. Anxiety depression, PTSD: Continue home medications 5. COPD with home oxygen use: Stable, continue supplements duration O2 with continuous pulse oximetry per patient. 6. Hyponatremia chronic: Stable 7 DVT risk low: Encourage ambulation. Mild protein-calorie malnutrition 08/26/2020 11/12/2021 Encounter for support and co ordination of transition of care 05/15/2020 05/02/2021 Overview: HOSPITAL/ER FOLLOW UP Which facility: [facility] Dates of visit: 05/10-05/13/2020 Preadmission evaluation: ER with right-sided abdominal pain over 2-1/2 hours, 10 out of 10. Worse with coughing. States she vomited 20 times the day before, with episodes of diarrhea over the past 2 days. Had used Imodium which improved diarrhea. No known exposures to Covid. Also identified chest pain which started approximately 2:00 that afternoon. Subjective fever and chills, chronic cough that is unchanged. Patient was afebrile with temp of 99.4 Fahrenheit, heart rate of 95, blood pressure 147/92. O2 saturation 94% but patient was started on O2 at 2 L per nasal cannula abdominal exam with severe tenderness over epigastric and right upper quadrant and right lower quadrant. No distention. CBC showed white count of 15.2 with neutrophils of 70. Hemoglobin 14.9, platelet 227, CMP within normal limits except for sodium of 134, glucose 107, total bili 1.5, AST and ALT 5 5/277, alk phos 122, troponin negative. Lipase 170. Covid rapid test negative. Ethanol 64. Chest x-ray with generalized hyperinflation, no acute findings. CT of abdomen pelvis without contrast demonstrated severe fatty liver, mild hepatomegaly, normal gallbladder, exophytic isodense nodule on the lower pole of the right kidney, mild bilateral fatty groin hernia. Appendix considered normal. Ultrasound of gallbladder demonstrated partially distended gallbladder with a positive sonographic Kennedy sign, no gallstones. Also identified mild perihepatic ascites. In ER patient was given IV Zofran, morphine 4 mg x 2 IV, Ativan 1 mg IV x1. Primary Diagnosis/es: Acute cholecystitis Elevated LFTs Secondary Diagnosis/es: Anxiety depression Hyperlipidemia Chronic tobacco use Chronic alcohol abuse SANA Hypothyroidism COPD with emphysema Chronic back pain PTSD Chronic anemia unknown etiology Gastroesophageal reflux disease Pulmonary embolus Consultants: Surgery: Dr. Gaye Gordon testing done: ----- -Labwork: See above 05/13/2020 WBC 8.9, hemoglobin 11.4, hematocrit 36.8, elevated indices, RDW of 51.0, platelet count 171, absolute neutrophil count elevated at 7.8. Electrolytes all within normal limits except anion gap of 2, BUN of 2, creatinine 0.68 with estimated GFR of 97. Glucose 148, calcium 8.2. Bilirubin normal, AST 162, ALT 139, alk phosphatase 81 normal, total protein and albumin low 6.3, 2.1 respectively ----- -Imaging: As above 05/12/2020 hepatobiliary scan nuclear medicine: No scintigraphic evidence of cholecystitis or biliary obstruction ----- -Cardiac: ----- -Other: ----- Procedures/ Surgery: Surgery: Laparoscopic cholecystectomy with surgical findings of thickened gallbladder wall with areas of gangrene, enlarged liver with fatty infiltration ascites Hospital course: As above patient was admitted, IV fluid, pain management, taken to surgery. Patient had successful recovery and discharged in a stable condition. Instructions were to return to activity but no driving while taking narcotic medication Medication Reconciliation: Completed Patient was given oxycodone 5 mg every 12 hours #10 documented as of this encounter (statuses as of 04/25/2023) [facility]11-13-2021 History of Past illness Narrative* Problem Noted Date Diagnosed Date Resolved Date Encounter for support and co ordination of transition of care 05/02/2021 07/23/2021 Overview: Hospital discharge summary: Date of admission 05/01/2021 Date of discharge: Facility: [facility] 05/01/2021 presented to the emergency room with acute alcohol intoxication, initial alcohol level 7-8. Acknowledges over the last 5 months drinking 15 packs a day at 8% alcohol (nataidan samaniego). Vital signs 96.6 [id number]-[id number]/73-98%. Appearance was no acute distress. WBC 7.9-Hgb 13.8-HCT 39.7-PLT 306. NA 130 2L-K3.7-CL 90 6L-CO2 26.0-BUN 20.5H- CRE 0.93-GLU 111 Admitted from ER to detox unit Active problem list: 1. Alcohol dependence: Started on phenobarbital, gabapentin as needed dicyclomine as needed, Vistaril as needed, Imodium as needed, trazodone as needed, Zofran as needed, scheduled thiamine and scheduled folic acid. 2. Tobacco abuse: Nicotine patch prescribed, tobacco withheld. 3. Marijuana abuse: Counseled 4. Anxiety depression, PTSD: Continue home medications 5. COPD with home oxygen use: Stable, continue supplements duration O2 with continuous pulse oximetry per patient. 6. Hyponatremia chronic: Stable 7 DVT risk low: Encourage ambulation. Mild protein-calorie malnutrition 08/26/2020 11/12/2021 Encounter for support and co ordination of transition of care 05/15/2020 05/02/2021 Overview: HOSPITAL/ER FOLLOW UP Which facility: [facility] Dates of visit: 05/10-05/13/2020 Preadmission evaluation: ER with right-sided abdominal pain over 2-1/2 hours, 10 out of 10. Worse with coughing. States she vomited 20 times the day before, with episodes of diarrhea over the past 2 days. Had used Imodium which improved diarrhea. No known exposures to Covid. Also identified chest pain which started approximately 2:00 that afternoon. Subjective fever and chills, chronic cough that is unchanged. Patient was afebrile with temp of 99.4 Fahrenheit, heart rate of 95, blood pressure 147/92. O2 saturation 94% but patient was started on O2 at 2 L per nasal cannula abdominal exam with severe tenderness over epigastric and right upper quadrant and right lower quadrant. No distention. CBC showed white count of 15.2 with neutrophils of 70. Hemoglobin 14.9, platelet 227, CMP within normal limits except for sodium of 134, glucose 107, total bili 1.5, AST and ALT 5 5/277, alk phos 122, troponin negative. Lipase 170. Covid rapid test negative. Ethanol 64. Chest x-ray with generalized hyperinflation, no acute findings. CT of abdomen pelvis without contrast demonstrated severe fatty liver, mild hepatomegaly, normal gallbladder, exophytic isodense nodule on the lower pole of the right kidney, mild bilateral fatty groin hernia. Appendix considered normal. Ultrasound of gallbladder demonstrated partially distended gallbladder with a positive sonographic Kennedy sign, no gallstones. Also identified mild perihepatic ascites. In ER patient was given IV Zofran, morphine 4 mg x 2 IV, Ativan 1 mg IV x1. Primary Diagnosis/es: Acute cholecystitis Elevated LFTs Secondary Diagnosis/es: Anxiety depression Hyperlipidemia Chronic tobacco use Chronic alcohol abuse SANA Hypothyroidism COPD with emphysema Chronic back pain PTSD Chronic anemia unknown etiology Gastroesophageal reflux disease Pulmonary embolus Consultants: Surgery: Dr. Gaye Gordon testing done: ----- -Labwork: See above 05/13/2020 WBC 8.9, hemoglobin 11.4, hematocrit 36.8, elevated indices, RDW of 51.0, platelet count 171, absolute neutrophil count elevated at 7.8. Electrolytes all within normal limits except anion gap of 2, BUN of 2, creatinine 0.68 with estimated GFR of 97. Glucose 148, calcium 8.2. Bilirubin normal, AST 162, ALT 139, alk phosphatase 81 normal, total protein and albumin low 6.3, 2.1 respectively ----- -Imaging: As above 05/12/2020 hepatobiliary scan nuclear medicine: No scintigraphic evidence of cholecystitis or biliary obstruction ----- -Cardiac: ----- -Other: ----- Procedures/ Surgery: Surgery: Laparoscopic cholecystectomy with surgical findings of thickened gallbladder wall with areas of gangrene, enlarged liver with fatty infiltration ascites Hospital course: As above patient was admitted, IV fluid, pain management, taken to surgery. Patient had successful recovery and discharged in a stable condition. Instructions were to return to activity but no driving while taking narcotic medication Medication Reconciliation: Completed Patient was given oxycodone 5 mg every 12 hours #10 documented as of this encounter (statuses as of 04/25/2023) [facility]11-13-2021 History of Past illness Narrative* Problem Noted Date Diagnosed Date Resolved Date Encounter for support and co ordination of transition of care 05/02/2021 07/23/2021 Overview: Hospital discharge summary: Date of admission 05/01/2021 Date of discharge: Facility: [facility] 05/01/2021 presented to the emergency room with acute alcohol intoxication, initial alcohol level 7-8. Acknowledges over the last 5 months drinking 15 packs a day at 8% alcohol (marcin samaniego). Vital signs 96.6 [id number]-78-18-111/73-98%. Appearance was no acute distress. WBC 7.9-Hgb 13.8-HCT 39.7-PLT 306. NA 130 2L-K3.7-CL 90 6L-CO2 26.0-BUN 20.5H- CRE 0.93-GLU 111 Admitted from ER to detox unit Active problem list: 1. Alcohol dependence: Started on phenobarbital, gabapentin as needed dicyclomine as needed, Vistaril as needed, Imodium as needed, trazodone as needed, Zofran as needed, scheduled thiamine and scheduled folic acid. 2. Tobacco abuse: Nicotine patch prescribed, tobacco withheld. 3. Marijuana abuse: Counseled 4. Anxiety depression, PTSD: Continue home medications 5. COPD with home oxygen use: Stable, continue supplements duration O2 with continuous pulse oximetry per patient. 6. Hyponatremia chronic: Stable 7 DVT risk low: Encourage ambulation. Mild protein-calorie malnutrition 08/26/2020 11/12/2021 Encounter for support and co ordination of transition of care 05/15/2020 05/02/2021 Overview: HOSPITAL/ER FOLLOW UP Which facility: [facility] Dates of visit: 05/10-05/13/2020 Preadmission evaluation: ER with right-sided abdominal pain over 2-1/2 hours, 10 out of 10. Worse with coughing. States she vomited 20 times the day before, with episodes of diarrhea over the past 2 days. Had used Imodium which improved diarrhea. No known exposures to Covid. Also identified chest pain which started approximately 2:00 that afternoon. Subjective fever and chills, chronic cough that is unchanged. Patient was afebrile with temp of 99.4 Fahrenheit, heart rate of 95, blood pressure 147/92. O2 saturation 94% but patient was started on O2 at 2 L per nasal cannula abdominal exam with severe tenderness over epigastric and right upper quadrant and right lower quadrant. No distention. CBC showed white count of 15.2 with neutrophils of 70. Hemoglobin 14.9, platelet 227, CMP within normal limits except for sodium of 134, glucose 107, total bili 1.5, AST and ALT 5 5/277, alk phos 122, troponin negative. Lipase 170. Covid rapid test negative. Ethanol 64. Chest x-ray with generalized hyperinflation, no acute findings. CT of abdomen pelvis without contrast demonstrated severe fatty liver, mild hepatomegaly, normal gallbladder, exophytic isodense nodule on the lower pole of the right kidney, mild bilateral fatty groin hernia. Appendix considered normal. Ultrasound of gallbladder demonstrated partially distended gallbladder with a positive sonographic Kennedy sign, no gallstones. Also identified mild perihepatic ascites. In ER patient was given IV Zofran, morphine 4 mg x 2 IV, Ativan 1 mg IV x1. Primary Diagnosis/es: Acute cholecystitis Elevated LFTs Secondary Diagnosis/es: Anxiety depression Hyperlipidemia Chronic tobacco use Chronic alcohol abuse SANA Hypothyroidism COPD with emphysema Chronic back pain PTSD Chronic anemia unknown etiology Gastroesophageal reflux disease Pulmonary embolus Consultants: Surgery: Dr. Gaye Gordon testing done: ----- -Labwork: See above 05/13/2020 WBC 8.9, hemoglobin 11.4, hematocrit 36.8, elevated indices, RDW of 51.0, platelet count 171, absolute neutrophil count elevated at 7.8. Electrolytes all within normal limits except anion gap of 2, BUN of 2, creatinine 0.68 with estimated GFR of 97. Glucose 148, calcium 8.2. Bilirubin normal, AST 162, ALT 139, alk phosphatase 81 normal, total protein and albumin low 6.3, 2.1 respectively ----- -Imaging: As above 05/12/2020 hepatobiliary scan nuclear medicine: No scintigraphic evidence of cholecystitis or biliary obstruction ----- -Cardiac: ----- -Other: ----- Procedures/ Surgery: Surgery: Laparoscopic cholecystectomy with surgical findings of thickened gallbladder wall with areas of gangrene, enlarged liver with fatty infiltration ascites Hospital course: As above patient was admitted, IV fluid, pain management, taken to surgery. Patient had successful recovery and discharged in a stable condition. Instructions were to return to activity but no driving while taking narcotic medication Medication Reconciliation: Completed Patient was given oxycodone 5 mg every 12 hours #10 documented as of this encounter (statuses as of 04/25/2023) [facility]11-13-2021 History of Past illness Narrative* Problem Noted Date Diagnosed Date Resolved Date Encounter for support and co ordination of transition of care 05/02/2021 07/23/2021 Overview: Hospital discharge summary: Date of admission 05/01/2021 Date of discharge: Facility: [facility] 05/01/2021 presented to the emergency room with acute alcohol intoxication, initial alcohol level 7-8. Acknowledges over the last 5 months drinking 15 packs a day at 8% alcohol (marcin samaniego). Vital signs 96.6 F-78-18-111/73-98%. Appearance was no acute distress. WBC 7.9-Hgb 13.8-HCT 39.7-PLT 306. NA 130 2L-K3.7-CL 90 6L-CO2 26.0-BUN 20.5H- CRE 0.93-GLU 111 Admitted from ER to detox unit Active problem list: 1. Alcohol dependence: Started on phenobarbital, gabapentin as needed dicyclomine as needed, Vistaril as needed, Imodium as needed, trazodone as needed, Zofran as needed, scheduled thiamine and scheduled folic acid. 2. Tobacco abuse: Nicotine patch prescribed, tobacco withheld. 3. Marijuana abuse: Counseled 4. Anxiety depression, PTSD: Continue home medications 5. COPD with home oxygen use: Stable, continue supplements duration O2 with continuous pulse oximetry per patient. 6. Hyponatremia chronic: Stable 7 DVT risk low: Encourage ambulation. Mild protein-calorie malnutrition 08/26/2020 11/12/2021 Encounter for support and co ordination of transition of care 05/15/2020 05/02/2021 Overview: HOSPITAL/ER FOLLOW UP Which facility: [facility] Dates of visit: 05/10-05/13/2020 Preadmission evaluation: ER with right-sided abdominal pain over 2-1/2 hours, 10 out of 10. Worse with coughing. States she vomited 20 times the day before, with episodes of diarrhea over the past 2 days. Had used Imodium which improved diarrhea. No known exposures to Covid. Also identified chest pain which started approximately 2:00 that afternoon. Subjective fever and chills, chronic cough that is unchanged. Patient was afebrile with temp of 99.4 Fahrenheit, heart rate of 95, blood pressure 147/92. O2 saturation 94% but patient was started on O2 at 2 L per nasal cannula abdominal exam with severe tenderness over epigastric and right upper quadrant and right lower quadrant. No distention. CBC showed white count of 15.2 with neutrophils of 70. Hemoglobin 14.9, platelet 227, CMP within normal limits except for sodium of 134, glucose 107, total bili 1.5, AST and ALT 5 5/277, alk phos 122, troponin negative. Lipase 170. Covid rapid test negative. Ethanol 64. Chest x-ray with generalized hyperinflation, no acute findings. CT of abdomen pelvis without contrast demonstrated severe fatty liver, mild hepatomegaly, normal gallbladder, exophytic isodense nodule on the lower pole of the right kidney, mild bilateral fatty groin hernia. Appendix considered normal. Ultrasound of gallbladder demonstrated partially distended gallbladder with a positive sonographic Kennedy sign, no gallstones. Also identified mild perihepatic ascites. In ER patient was given IV Zofran, morphine 4 mg x 2 IV, Ativan 1 mg IV x1. Primary Diagnosis/es: Acute cholecystitis Elevated LFTs Secondary Diagnosis/es: Anxiety depression Hyperlipidemia Chronic tobacco use Chronic alcohol abuse SANA Hypothyroidism COPD with emphysema Chronic back pain PTSD Chronic anemia unknown etiology Gastroesophageal reflux disease Pulmonary embolus Consultants: Surgery: Dr. Gaye Gordon testing done: ----- -Labwork: See above 05/13/2020 WBC 8.9, hemoglobin 11.4, hematocrit 36.8, elevated indices, RDW of 51.0, platelet count 171, absolute neutrophil count elevated at 7.8. Electrolytes all within normal limits except anion gap of 2, BUN of 2, creatinine 0.68 with estimated GFR of 97. Glucose 148, calcium 8.2. Bilirubin normal, AST 162, ALT 139, alk phosphatase 81 normal, total protein and albumin low 6.3, 2.1 respectively ----- -Imaging: As above 05/12/2020 hepatobiliary scan nuclear medicine: No scintigraphic evidence of cholecystitis or biliary obstruction ----- -Cardiac: ----- -Other: ----- Procedures/ Surgery: Surgery: Laparoscopic cholecystectomy with surgical findings of thickened gallbladder wall with areas of gangrene, enlarged liver with fatty infiltration ascites Hospital course: As above patient was admitted, IV fluid, pain management, taken to surgery. Patient had successful recovery and discharged in a stable condition. Instructions were to return to activity but no driving while taking narcotic medication Medication Reconciliation: Completed Patient was given oxycodone 5 mg every 12 hours #10 documented as of this encounter (statuses as of 05/11/2023) [facility]11-13-2021 History of Past illness Narrative* Problem Noted Date Diagnosed Date Resolved Date Encounter for support and co ordination of transition of care 05/02/2021 07/23/2021 Overview: Hospital discharge summary: Date of admission 05/01/2021 Date of discharge: Facility: [facility] 05/01/2021 presented to the emergency room with acute alcohol intoxication, initial alcohol level 7-8. Acknowledges over the last 5 months drinking 15 packs a day at 8% alcohol (natty daddy). Vital signs 96.6 F-78-18-111/73-98%. Appearance was no acute distress. WBC 7.9-Hgb 13.8-HCT 39.7-PLT 306. NA 130 2L-K3.7-CL 90 6L-CO2 26.0-BUN 20.5H- CRE 0.93-GLU 111 Admitted from ER to detox unit Active problem list: 1. Alcohol dependence: Started on phenobarbital, gabapentin as needed dicyclomine as needed, Vistaril as needed, Imodium as needed, trazodone as needed, Zofran as needed, scheduled thiamine and scheduled folic acid. 2. Tobacco abuse: Nicotine patch prescribed, tobacco withheld. 3. Marijuana abuse: Counseled 4. Anxiety depression, PTSD: Continue home medications 5. COPD with home oxygen use: Stable, continue supplements duration O2 with continuous pulse oximetry per patient. 6. Hyponatremia chronic: Stable 7 DVT risk low: Encourage ambulation. Mild protein-calorie malnutrition 08/26/2020 11/12/2021 Encounter for support and co ordination of transition of care 05/15/2020 05/02/2021 Overview: HOSPITAL/ER FOLLOW UP Which facility: [facility] Dates of visit: 05/10-05/13/2020 Preadmission evaluation: ER with right-sided abdominal pain over 2-1/2 hours, 10 out of 10. Worse with coughing. States she vomited 20 times the day before, with episodes of diarrhea over the past 2 days. Had used Imodium which improved diarrhea. No known exposures to Covid. Also identified chest pain which started approximately 2:00 that afternoon. Subjective fever and chills, chronic cough that is unchanged. Patient was afebrile with temp of 99.4 Fahrenheit, heart rate of 95, blood pressure 147/92. O2 saturation 94% but patient was started on O2 at 2 L per nasal cannula abdominal exam with severe tenderness over epigastric and right upper quadrant and right lower quadrant. No distention. CBC showed white count of 15.2 with neutrophils of 70. Hemoglobin 14.9, platelet 227, CMP within normal limits except for sodium of 134, glucose 107, total bili 1.5, AST and ALT 5 5/277, alk phos 122, troponin negative. Lipase 170. Covid rapid test negative. Ethanol 64. Chest x-ray with generalized hyperinflation, no acute findings. CT of abdomen pelvis without contrast demonstrated severe fatty liver, mild hepatomegaly, normal gallbladder, exophytic isodense nodule on the lower pole of the right kidney, mild bilateral fatty groin hernia. Appendix considered normal. Ultrasound of gallbladder demonstrated partially distended gallbladder with a positive sonographic Kennedy sign, no gallstones. Also identified mild perihepatic ascites. In ER patient was given IV Zofran, morphine 4 mg x 2 IV, Ativan 1 mg IV x1. Primary Diagnosis/es: Acute cholecystitis Elevated LFTs Secondary Diagnosis/es: Anxiety depression Hyperlipidemia Chronic tobacco use Chronic alcohol abuse SANA Hypothyroidism COPD with emphysema Chronic back pain PTSD Chronic anemia unknown etiology Gastroesophageal reflux disease Pulmonary embolus Consultants: Surgery: Dr. Gaye Gordon testing done: ----- -Labwork: See above 05/13/2020 WBC 8.9, hemoglobin 11.4, hematocrit 36.8, elevated indices, RDW of 51.0, platelet count 171, absolute neutrophil count elevated at 7.8. Electrolytes all within normal limits except anion gap of 2, BUN of 2, creatinine 0.68 with estimated GFR of 97. Glucose 148, calcium 8.2. Bilirubin normal, AST 162, ALT 139, alk phosphatase 81 normal, total protein and albumin low 6.3, 2.1 respectively ----- -Imaging: As above 05/12/2020 hepatobiliary scan nuclear medicine: No scintigraphic evidence of cholecystitis or biliary obstruction ----- -Cardiac: ----- -Other: ----- Procedures/ Surgery: Surgery: Laparoscopic cholecystectomy with surgical findings of thickened gallbladder wall with areas of gangrene, enlarged liver with fatty infiltration ascites Hospital course: As above patient was admitted, IV fluid, pain management, taken to surgery. Patient had successful recovery and discharged in a stable condition. Instructions were to return to activity but no driving while taking narcotic medication Medication Reconciliation: Completed Patient was given oxycodone 5 mg every 12 hours #10 documented as of this encounter (statuses as of 05/20/2023) [facility] History of Past illness Narrative* Problem Noted Date Diagnosed Date Resolved Date Encounter for support and co ordination of transition of care 05/02/2021 07/23/2021 Overview: Hospital discharge summary: Date of admission 05/01/2021 Date of discharge: Facility: [facility] 05/01/2021 presented to the emergency room with acute alcohol intoxication, initial alcohol level 7-8. Acknowledges over the last 5 months drinking 15 packs a day at 8% alcohol (marcin samaniego). Vital signs 96.6 F-78-18-111/73-98%. Appearance was no acute distress. WBC 7.9-Hgb 13.8-HCT 39.7-PLT 306. NA 130 2L-K3.7-CL 90 6L-CO2 26.0-BUN 20.5H- CRE 0.93-GLU 111 Admitted from ER to detox unit Active problem list: 1. Alcohol dependence: Started on phenobarbital, gabapentin as needed dicyclomine as needed, Vistaril as needed, Imodium as needed, trazodone as needed, Zofran as needed, scheduled thiamine and scheduled folic acid. 2. Tobacco abuse: Nicotine patch prescribed, tobacco withheld. 3. Marijuana abuse: Counseled 4. Anxiety depression, PTSD: Continue home medications 5. COPD with home oxygen use: Stable, continue supplements duration O2 with continuous pulse oximetry per patient. 6. Hyponatremia chronic: Stable 7 DVT risk low: Encourage ambulation. Mild protein-calorie malnutrition 08/26/2020 11/12/2021 Encounter for support and co ordination of transition of care 05/15/2020 05/02/2021 Overview: HOSPITAL/ER FOLLOW UP Which facility: [facility] Dates of visit: 05/10-05/13/2020 Preadmission evaluation: ER with right-sided abdominal pain over 2-1/2 hours, 10 out of 10. Worse with coughing. States she vomited 20 times the day before, with episodes of diarrhea over the past 2 days. Had used Imodium which improved diarrhea. No known exposures to Covid. Also identified chest pain which started approximately 2:00 that afternoon. Subjective fever and chills, chronic cough that is unchanged. Patient was afebrile with temp of 99.4 Fahrenheit, heart rate of 95, blood pressure 147/92. O2 saturation 94% but patient was started on O2 at 2 L per nasal cannula abdominal exam with severe tenderness over epigastric and right upper quadrant and right lower quadrant. No distention. CBC showed white count of 15.2 with neutrophils of 70. Hemoglobin 14.9, platelet 227, CMP within normal limits except for sodium of 134, glucose 107, total bili 1.5, AST and ALT 5 /277, alk phos 122, troponin negative. Lipase 170. Covid rapid test negative. Ethanol 64. Chest x-ray with generalized hyperinflation, no acute findings. CT of abdomen pelvis without contrast demonstrated severe fatty liver, mild hepatomegaly, normal gallbladder, exophytic isodense nodule on the lower pole of the right kidney, mild bilateral fatty groin hernia. Appendix considered normal. Ultrasound of gallbladder demonstrated partially distended gallbladder with a positive sonographic Kennedy sign, no gallstones. Also identified mild perihepatic ascites. In ER patient was given IV Zofran, morphine 4 mg x 2 IV, Ativan 1 mg IV x1. Primary Diagnosis/es: Acute cholecystitis Elevated LFTs Secondary Diagnosis/es: Anxiety depression Hyperlipidemia Chronic tobacco use Chronic alcohol abuse SANA Hypothyroidism COPD with emphysema Chronic back pain PTSD Chronic anemia unknown etiology Gastroesophageal reflux disease Pulmonary embolus Consultants: Surgery: Dr. Gaye Gordon testing done: ----- -Labwork: See above 05/13/2020 WBC 8.9, hemoglobin 11.4, hematocrit 36.8, elevated indices, RDW of 51.0, platelet count 171, absolute neutrophil count elevated at 7.8. Electrolytes all within normal limits except anion gap of 2, BUN of 2, creatinine 0.68 with estimated GFR of 97. Glucose 148, calcium 8.2. Bilirubin normal, AST 162, ALT 139, alk phosphatase 81 normal, total protein and albumin low 6.3, 2.1 respectively ----- -Imaging: As above 05/12/2020 hepatobiliary scan nuclear medicine: No scintigraphic evidence of cholecystitis or biliary obstruction ----- -Cardiac: ----- -Other: ----- Procedures/ Surgery: Surgery: Laparoscopic cholecystectomy with surgical findings of thickened gallbladder wall with areas of gangrene, enlarged liver with fatty infiltration [place] [facility] course: As above patient was admitted, IV fluid, pain management, taken to surgery. Patient had successful recovery and discharged in a stable condition. Instructions were to return to activity but no driving while taking narcotic medication Medication Reconciliation: Completed Patient was given oxycodone 5 mg every 12 hours #10 documented as of this encounter (statuses as of 05/25/2023) [facility] Diagnosis Vitamin D deficiency Unspecified vitamin D deficiency documented in this encounter [facility]* Diagnosis NO SHOW- Primary [facility] Diagnosis Encounter for screening mammogram for breast cancer [facility]* Diagnosis Abnormal mammogram- Primary Abnormal mammogram, unspecified [facility]* Diagnosis Inconclusive mammogram- Primary [facility]* Diagnosis NO SHOW- Primary documented in this [facility]* Diagnosis Radiculopathy, lumbar region- Primary Thoracic or lumbosacral neuritis or radiculitis, unspecified [facility]* Diagnosis Alcohol abuse- Primary Alcohol abuse, unspecified Delusional disorder (HCC) Gastroesophageal reflux disease without esophagitis Esophageal reflux Hyperglycemia Other abnormal glucose Primary hypertension Unspecified essential hypertension [facility]* Diagnosis Essential hypertension Unspecified essential hypertension [facility]* Diagnosis Inconclusive mammogram [facility]* Diagnosis Alcohol abuse- Primary Alcohol abuse, unspecified Delusional disorder (HCC) Gastroesophageal reflux disease without esophagitis Esophageal reflux Hyperglycemia Other abnormal glucose Essential hypertension Unspecified essential hypertension Need for vaccination Need for prophylactic vaccination and inoculation against unspecified single disease Cervicalgia Stress incontinence Female stress incontinence Encounter for hepatitis C virus screening test for high risk patient Screening for HIV (human immunodeficiency virus) Special screening examination for other specified viral diseases Need for COVID-19 vaccine Screening for colon cancer Special screening for malignant neoplasms, colon Mild protein-calorie malnutrition (HCC) Malnutrition of mild degree documented in this [facility]* Diagnosis History of colonic polyps- Primary Personal history of colonic polyps Chronic active hepatitis C (HCC) Gastroesophageal reflux disease, unspecified whether esophagitis present documented in this encounter [facility] note* Diagnosis Chronic active hepatitis C (HCC) [facility]* Diagnosis History of colonic polyps Personal history of colonic polyps documented in this [facility]* Diagnosis Radiculopathy, lumbar region- Primary Thoracic or lumbosacral neuritis or radiculitis, unspecified Spinal stenosis of lumbar region without neurogenic claudication Spinal stenosis, lumbar region, without neurogenic claudication Lumbar spondylosis Lumbosacral spondylosis without myelopathy Chronic bilateral low back pain without sciatica History of urinary urgency Personal history of other disorder of urinary system Cervical spondylosis without myelopathy [facility]* Diagnosis Cervical spondylosis without myelopathy- Primary Radiculopathy, lumbar region Thoracic or lumbosacral neuritis or radiculitis, unspecified Spinal stenosis, lumbar region, without neurogenic claudication Cervical spondylosis without myelopathy Cervical spondylosis without myelopathy [facility]* Diagnosis Urge incontinence- Primary Stress incontinence, female Female stress incontinence Radiculopathy, lumbar region Thoracic or lumbosacral neuritis or radiculitis, unspecified Spinal stenosis, lumbar region, without neurogenic claudication Cervical spondylosis without myelopathy Cervical spondylosis without myelopathy [facility]* Diagnosis Other chronic pain- Primary Radiculopathy, lumbar region Thoracic or lumbosacral neuritis or radiculitis, unspecified Spinal stenosis, lumbar region, without neurogenic claudication Cervical spondylosis without myelopathy Cervical spondylosis without myelopathy [facility]* Diagnosis Closed fracture of upper extremity, unspecified laterality, initial encounter- Primary Radiculopathy, lumbar region Thoracic or lumbosacral neuritis or radiculitis, unspecified Spinal stenosis, lumbar region, without neurogenic claudication Cervical spondylosis without myelopathy Cervical spondylosis without myelopathy [facility]* Diagnosis Vaginal discharge- Primary Leukorrhea, not specified as infective Cervical spondylosis without myelopathy Cervical spondylosis without myelopathy [facility]* Diagnosis Cervical spondylosis without myelopathy- Primary Cervical spondylosis without myelopathy [facility]* Diagnosis Essential hypertension Unspecified essential hypertension Low serum potassium Hyperlipidemia, mixed Mixed hyperlipidemia Fibromyalgia Mylagia and myositis, unspecified Cervical spondylosis without myelopathy [facility] Diagnosis Cervical spondylosis without myelopathy- Primary [facility] Diagnosis Essential hypertension- Primary Unspecified essential hypertension Hyperlipidemia, mixed Mixed hyperlipidemia Chronic active hepatitis C (HCC) COPD (chronic obstructive pulmonary disease) with chronic bronchitis (HCC) Obstructive chronic bronchitis without exacerbation Centrilobular emphysema (HCC) Other emphysema PE (pulmonary thromboembolism) (HCC) Other pulmonary embolism and infarction Hyperglycemia Other abnormal glucose Gastroesophageal reflux disease without esophagitis Esophageal reflux Alcohol abuse Alcohol abuse, unspecified Traumatic closed nondisp torus fracture of distal radial metaphysis, right, with routine healing, subsequent encounter Radiculopathy, lumbar region Thoracic or lumbosacral neuritis or radiculitis, unspecified Chronic left-sided low back pain with sciatica, sciatica laterality unspecified Fibromyalgia Mylagia and myositis, unspecified Stasis edema of both lower extremities Delusional disorder (HCC) Stress incontinence Female stress incontinence Bacterial vaginosis Vaginitis and vulvovaginitis, unspecified Obesity, Class III, BMI >= 40 (morbid obesity) E66.01 Morbid obesity Hypothyroidism, acquired Unspecified hypothyroidism [facility] Diagnosis Radiculopathy, lumbar region Thoracic or lumbosacral neuritis or radiculitis, unspecified Spinal stenosis, lumbar region, without neurogenic claudication [facility] Diagnosis Vitamin D deficiency Unspecified vitamin D deficiency [facility]* Diagnosis Dehydration- Primary Postural dizziness with near syncope Alcohol abuse Alcohol abuse, unspecified Memory impairment Memory loss Chronic hepatitis C without hepatic coma (HCC) Chronic hepatitis C without mention of hepatic coma Alcohol abuse, in remission Nondependent alcohol abuse, in remission Brown-colored urine Iron deficiency anemia, unspecified iron deficiency anemia type Cognitive impairment, mild, so stated Mild cognitive impairment, so stated Slurred speech Other speech disturbance [facility]* Diagnosis Cervical spondylosis without myelopathy- Primary [facility]* Diagnosis Chronic hepatitis C without hepatic coma (HCC)- Primary Chronic hepatitis C without mention of hepatic coma Cervical spondylosis without myelopathy Cervical spondylosis without myelopathy [facility] Diagnosis Chronic hepatitis C without hepatic coma (HCC)- Primary Chronic hepatitis C without mention of hepatic coma Gastroesophageal reflux disease, unspecified whether esophagitis present Cervical spondylosis without myelopathy Cervical spondylosis without myelopathy [facility]* Diagnosis Radiculopathy, lumbar region Thoracic or lumbosacral neuritis or radiculitis, unspecified Cervical spondylosis without myelopathy [facility]* Diagnosis Alcohol abuse, in remission- Primary Nondependent alcohol abuse, in remission Memory impairment Memory loss Brown-colored urine Cognitive impairment, mild, so stated Mild cognitive impairment, so stated Essential hypertension Unspecified essential hypertension Radiculopathy, lumbar region Thoracic or lumbosacral neuritis or radiculitis, unspecified Chronic left-sided low back pain with sciatica, sciatica laterality unspecified Chronic hepatitis C without hepatic coma (HCC) Chronic hepatitis C without mention of hepatic coma Need for influenza vaccination Need for prophylactic vaccination and inoculation against influenza Need for COVID-19 vaccine Delusional disorder (HCC) Cervical spondylosis without myelopathy Cervical spondylosis without myelopathy [facility] Diagnosis Tobacco abuse Tobacco use disorder Cervical spondylosis without myelopathy [facility]* Diagnosis Essential hypertension Unspecified essential hypertension [facility]* Diagnosis Cognitive impairment- Primary Unspecified persistent mental disorders due to conditions classified elsewhere Alcohol abuse, in remission Nondependent alcohol abuse, in remission Polysubstance abuse (HCC) Other, mixed, or unspecified nondependent drug abuse, unspecified Polypharmacy Encounter for long-term (current) use of other medications [facility]* Diagnosis Hospital discharge follow-up- Primary Other follow-up examination Lung nodules Other nonspecific abnormal finding of lung field Syncope, unspecified syncope type Weight loss Loss of weight New daily persistent headache Alcohol abuse, in remission Nondependent alcohol abuse, in remission Cognitive impairment, mild, so stated Mild cognitive impairment, so stated Radiculopathy, lumbar region Thoracic or lumbosacral neuritis or radiculitis, unspecified Chronic hepatitis C without hepatic coma (HCC) Chronic hepatitis C without mention of hepatic coma [facility]* Diagnosis Vaginal discharge- Primary Leukorrhea, not specified as infective Screening examination for STD (sexually transmitted disease) Screening examination for venereal disease [facility] Diagnosis Chronic left-sided low back pain with sciatica, sciatica laterality unspecified- Primary Spinal stenosis of lumbar region without neurogenic claudication Spinal stenosis, lumbar region, without neurogenic claudication Lumbar spondylosis Lumbosacral spondylosis without myelopathy Fibromyalgia Mylagia and myositis, unspecified Other chronic pain [facility]* Diagnosis Spinal stenosis of lumbar region without neurogenic claudication Spinal stenosis, lumbar region, without neurogenic claudication [facility]* Diagnosis Radiculopathy, lumbar region Thoracic or lumbosacral neuritis or radiculitis, unspecified [facility]* Diagnosis COPD (chronic obstructive pulmonary disease) with chronic bronchitis (HCC)- Primary Obstructive chronic bronchitis without exacerbation [facility] Diagnosis Radiculopathy, lumbar region Thoracic or lumbosacral neuritis or radiculitis, unspecified [facility]* Diagnosis Hyperlipidemia, mixed Mixed hyperlipidemia Fibromyalgia Mylagia and myositis, unspecified Stress incontinence Female stress incontinence Alcohol abuse, in remission Nondependent alcohol abuse, in remission Chronic hepatitis C without hepatic coma (HCC) Chronic hepatitis C without mention of hepatic coma Memory impairment Memory loss Iron deficiency anemia, unspecified iron deficiency anemia type [facility]* Diagnosis Cognitive impairment, mild, so stated- Primary Mild cognitive impairment, so stated Hx pulmonary embolism Personal history of pulmonary embolism Tobacco use disorder COPD (chronic obstructive pulmonary disease) with chronic bronchitis (HCC) Obstructive chronic bronchitis without exacerbation Centrilobular emphysema (HCC) Other emphysema Alcohol abuse Alcohol abuse, unspecified Hyperglycemia Other abnormal glucose Chronic active hepatitis C (HCC) Gastroesophageal reflux disease without esophagitis Esophageal reflux History of colonic polyps Personal history of colonic polyps Lumbar spondylosis Lumbosacral spondylosis without myelopathy Delusional disorder (HCC) Stasis edema of both lower extremities Spinal stenosis, lumbar region, without neurogenic claudication Chronic midline low back pain with left-sided sciatica Radiculopathy, lumbar region Thoracic or lumbosacral neuritis or radiculitis, unspecified [facility]* Diagnosis Vitamin D deficiency Unspecified vitamin D deficiency [facility] Diagnosis Cognitive impairment- Primary Unspecified persistent mental disorders due to conditions classified elsewhere Alcohol abuse, in remission Nondependent alcohol abuse, in remission Polysubstance abuse (HCC) Other, mixed, or unspecified nondependent drug abuse, unspecified Polypharmacy Encounter for long-term (current) use of other medications documented [facility] this [facility]* Diagnosis Chronic left-sided low back pain with sciatica, sciatica laterality unspecified- Primary DDD (degenerative disc disease), lumbar Degeneration of lumbar or lumbosacral intervertebral disc Lumbar spondylosis Lumbosacral spondylosis without myelopathy Gait instability Abnormality of gait Weight loss Loss of weight [facility]* Diagnosis Lumbar spondylosis- Primary Lumbosacral spondylosis without myelopathy Cervical spondylosis without myelopathy Spinal stenosis of lumbar region without neurogenic claudication Spinal stenosis, lumbar region, without neurogenic claudication Myofascial pain Mylagia and myositis, unspecified documented in this encounter [facility] note* Diagnosis Mastodynia of left breast- Primary Dense breast tissue Vaginal discharge Leukorrhea, not specified as infective Vaginal odor Unspecified symptom associated with female genital organs documented in this [facility]* Diagnosis Hypertension, essential- Primary Unspecified essential hypertension [facility]* Diagnosis Primary hypertension- Primary Unspecified essential hypertension Unspecified essential hypertension documented [facility] this [facility]* Diagnosis Cognitive impairment- Primary Unspecified persistent mental disorders due to conditions classified elsewhere Alcohol abuse, in remission Nondependent alcohol abuse, in remission Polysubstance abuse (HCC) Other, mixed, or unspecified nondependent drug abuse, unspecified Polypharmacy Encounter for long-term (current) use of other medications Transient cerebral ischemia, unspecified type Balance problem Other symptoms involving nervous and musculoskeletal systems Falls frequently Personal history of fall Depression, unspecified depression type Hallucinations documented in this [facility]* Diagnosis Displacement of lumbar intervertebral disc without myelopathy- Primary Radiculopathy, lumbar region Thoracic or lumbosacral neuritis or radiculitis, unspecified documented in this encounter [facility] note* Diagnosis Displacement of lumbar intervertebral disc without myelopathy- Primary Radiculopathy, lumbar region Thoracic or lumbosacral neuritis or radiculitis, unspecified Displacement of lumbar intervertebral disc without myelopathy Radiculopathy, lumbar region Thoracic or lumbosacral neuritis or radiculitis, unspecified [facility]* Diagnosis Hyperlipidemia, mixed Mixed hyperlipidemia Fibromyalgia Mylagia and myositis, unspecified Stress incontinence Female stress incontinence Alcohol abuse, in remission Nondependent alcohol abuse, in remission Chronic hepatitis C without hepatic coma (HCC) Chronic hepatitis C without mention of hepatic coma Memory impairment Memory loss Displacement of lumbar intervertebral disc without myelopathy Radiculopathy, lumbar region Thoracic or lumbosacral neuritis or radiculitis, unspecified [facility]* Diagnosis Vitamin D deficiency Unspecified vitamin D deficiency documented [facility] this [facility]* Diagnosis Fibrocystic breast changes, bilateral- Primary Mastodynia of left breast Dense breast tissue Family history of breast cancer Family history of malignant neoplasm of breast Family history of ovarian cancer Family history of malignant neoplasm of ovary documented [facility] this [facility]* Diagnosis Lumbar radiculopathy- Primary Thoracic or lumbosacral neuritis or radiculitis, unspecified Primary osteoarthritis of right hip Primary localized osteoarthrosis, pelvic region and thigh [facility]* Diagnosis Primary osteoarthritis of right hip- Primary Primary localized osteoarthrosis, pelvic region and thigh Lumbar radiculopathy Thoracic or lumbosacral neuritis or radiculitis, unspecified documented in this encounter [facility] note* Diagnosis Breast pain Mastodynia documented in this encounter [facility] note* Diagnosis Transient cerebral ischemia, unspecified type Balance problem Other symptoms involving nervous and musculoskeletal systems Falls frequently Personal history of fall documented in this encounter [facility] note* Diagnosis Breast pain Mastodynia [facility] Diagnosis Weakness of both hands- Primary Numbness and tingling in both hands Complaining of cold hands documented in this encounter [facility] for referral (narrative)* Diagnostic Procedure Only (Routine) - Authorized Specialty Diagnoses / Procedures Referred By Contjaye t Referred To Contact [facility] Diagnoses Abnormal mammogram Procedures US BREAST LTD LT US BREAST UNI REAL TIME WITH IMAGE LIMITED Mitul Abbott MD [address] [place] [address] [facility] [address] [place] [address] Referral ID Status Reason Start Date Expiration Date Visits Requested Visits Authorized [id number] Authorized Auto-Generat ed Referral 10/02/2021 11/01/2022 1 1 * Diagnostic Procedure Only (Routine) - Authorized Specialty Diagnoses / Procedures Referred By Contac t Referred To Contact [facility] Diagnoses Abnormal mammogram Procedures US BREAST LTD RT US BREAST UNI REAL TIME WITH IMAGE LIMITED Mitul Abbott MD [address] [place] [address] [facility] [address] [place] [address] Referral ID Status Reason Start Date Expiration Date Visits Requested Visits Authorized [id number] Authorized Auto-Generat ed Referral 10/02/2021 11/01/2022 1 1 * Diagnostic Procedure Only (Routine) - Authorized Specialty Diagnoses / Procedures Referred By Contac t Referred To Contact [facility] Diagnoses Abnormal mammogram Procedures [facility] DIAGNOSTIC BILAT DIAGNOSTIC MAMMOGRAPHY COMPUTER-AIDED DETCJ BI Mitul Abbott MD [address] [place] [address] [facility] [address] [place] [address] Referral ID Status Reason Start Date Expiration Date Visits Requested Visits Authorized [id number] Authorized Auto-Generat ed Referral 10/02/2021 11/01/2022 1 1 [facility] for referral (narrative)* Diagnostic Procedure Only (Routine) - Pending Review Specialty Diagnoses / Procedures Referred By Contac t Referred To Contact [facility] Diagnoses Inconclusive mammogram Procedures US BREAST LTD RT US BREAST UNI REAL TIME WITH IMAGE LIMITED Jaimee Palomares PA-C [address] [place] [address] [facility] [address] [place] [address] Referral ID Status Reason Start Date Expiration Date Visits Requested Visits Authorized [id number] Pending Review Auto-Generat ed Referral 10/04/2021 11/03/2022 1 1 * Diagnostic Procedure Only (Routine) - Pending Review Specialty Diagnoses / Procedures Referred By Contac t Referred To Contact BR IMAGING Diagnoses Inconclusive mammogram Procedures US BREAST LTD LT US BREAST UNI REAL TIME WITH IMAGE LIMITED Jaimee Palomares PA-C [address] [place] [address] Br Imaging [address] [place] [address] Referral ID Status Reason Start Date Expiration Date Visits Requested Visits Authorized [id number] Pending Review Auto-Generat ed Referral 10/04/2021 11/03/2022 1 1 * Diagnostic Procedure Only (Routine) - Pending Review Specialty Diagnoses / Procedures Referred By Contac t Referred To Contact BR IMAGING Diagnoses Inconclusive mammogram Procedures SHILOH DIAGNOSTIC BILAT DIAGNOSTIC MAMMOGRAPHY COMPUTER-AIDED DETCJ BI Jaimee Palomares PA-C [address] [place] [address] Br Imaging [address] [place] [address] Referral ID Status Reason Start Date Expiration Date Visits Requested Visits Authorized [id number] Pending Review Auto-Generat ed Referral 10/04/2021 11/03/2022 1 1 [facility] for referral (narrative)* Diagnostic Procedure Only (Routine) - Closed Specialty Diagnoses / Procedures Referred By Contac t Referred To Contact XR IMAGING Diagnoses Cervicalgia Procedures XR CERV OTHER 4V AP/LAT/OBL RADEX SPINE CERVICAL 4 OR 5 VIEWS Jaimee Palomares PA-C [address] [place] [address] Xr Imaging Referral ID Status Reason Start Date Expiration Date V isits Requested Visits Authorized [id number] Closed Auto-Generate d Referral 11/12/2021 12/12/2022 1 1 * Consult, Test, Treat (Routine) - Authorized Specialty Diagnoses / Procedures Referred By Contac t Referred To Contact General Surgery Diagnoses Screening for colon cancer Procedures CONSULT TO GENERAL SURGERY OFFICE/OUTPATIENT [facility] MDM 60-74 MINUTES Jaimee Palomares PA-C [address] [place] [address] Referral ID Status Reason Start Date Expiration Date Visits Requested Visits Authorized [id number] Authorized PCP Requested Referral 11/12/2021 11/12/2022 1 1 * Physical Therapy (Routine) - Pending Review Specialty Diagnoses / Procedures Referred By Contac t Referred To Contact [facility] Diagnoses Stress incontinence Procedures CONSULT TO PHYSICAL THERAPY PHYSICAL THERAPY EVALUATION HIGH COMPLEX 45 MINS Jaimee Palomares PA-C [address] [place] [address] [facility] [address] [address] Referral ID Status Reason Start Date Expiration Date Visits Requested Visits Authorized [id number] Pending Review Auto-Generat ed Referral 11/12/2021 11/12/2022 1 1 [facility] for referral (narrative)* Outpatient Procedure (Routine) - Authorized Specialty Diagnoses / Procedures Referred By Contac t Referred To Contact [facility] Diagnoses History of colonic polyps Procedures COLONOSCOPY DIAGNOSTIC COLONOSCOPY FLX DX W/COLLJ SPEC WHEN Josué Reyna MD [address] [place] [address] [facility] [address] [place] [address] Referral ID Status Reason Start Date Expiration Date Visits Requested Visits Authorized [id number] Authorized Auto-Generat ed Referral 11/23/2021 11/23/2022 1 1 * Diagnostic Procedure Only (Routine) - Authorized Specialty Diagnoses / Procedures Referred By Contac t Referred To Contact US IMAGING Diagnoses Chronic active hepatitis C (HCC) Procedures US ABD RT UPPER QUADRANT US ABDOMINAL REAL TIME W/IMAGE LIMITED Josué Blevins MD [address] [place] [address] Us Imaging Referral ID Status Reason Start Date Expiration Date Visits Requested Visits Authorized [id number] Authorized Auto-Generat ed Referral 11/23/2021 12/23/2022 1 1 * Outpatient Procedure (Routine) - Pending Review Specialty Diagnoses / Procedures Referred By Contac t Referred To Contact [facility] Diagnoses Chronic active hepatitis C (HCC) Procedures DDI VIBRATION CONTROLLED TRANSIENT ELASTOGRAPHY (VCTE) LIVER ELASTOGRAPHY W/O IMAG W/I&R Josué Blevins MD [address] [place] [address] [facility] [address] [place] [address] Referral ID Status Reason Start Date Expiration Date Visits Requested Visits Authorized [id number] Pending Review Auto-Generat ed Referral 11/23/2021 11/23/2022 1 1 [facility] for referral (narrative)* Diagnostic Procedure Only (Routine) - Closed Specialty Diagnoses / Procedures Referred By Contac t Referred To Contact US IMAGING Diagnoses Chronic active hepatitis C (HCC) Procedures US ABD RT UPPER QUADRANT US ABDOMINAL REAL TIME W/IMAGE LIMITED Josué Blevins MD [address] [place] [address] Us Imaging Referral ID Status Reason Start Date Expiration Date V isits Requested Visits Authorized [id number] Closed Auto-Generate d Referral 11/23/2021 12/23/2022 1 1 [facility] for referral (narrative)* Outpatient Procedure (Routine) - Closed Specialty Diagnoses / Procedures Referred By Contac t Referred To Contact [facility] Diagnoses History of colonic polyps Procedures COLONOSCOPY DIAGNOSTIC COLONOSCOPY FLX DX W/COLLJ SPEC WHEN Josué Reyna MD [address] [place] [address] [facility] [address] [place] [address] Referral ID Status Reason Start Date Expiration Date V isits Requested Visits Authorized [id number] Closed Auto-Generate d Referral 11/23/2021 11/23/2022 1 1 [facility] for referral (narrative)* - Pending Review Specialty Diagnoses / Procedures Referred By Contac t Referred To Contact Physical Therapy Diagnoses Spinal stenosis of lumbar region without neurogenic claudication Procedures CONSULT TO PHYSICAL THERAPY Shira Kam, SENIOR BUSINESS ARCHITECT.SENIOR CONTRACTS ADMINISTRATOR [address] [place] [address] Referral ID Status Reason Start Date Expiration Date V isits Requested Visits Authorized [id number] Pending Review 06/03/2022 09/01/2022 1 1 Electronically signed by Shira Kam SENIOR BUSINESS ARCHITECT.SENIOR CONTRACTS ADMINISTRATOR at 06/03/2022 11:32 AM [facility] for referral (narrative)* Diagnostic Procedure Only (Routine) - Closed Specialty Diagnoses / Procedures Referred By Contac t Referred To Contact BR IMAGING Diagnoses Breast pain Procedures US BREAST LTD LT US BREAST UNI REAL TIME WITH IMAGE LIMITED Memo Huber MD [address] [place] [address] Br Imaging [address] [place] [address] Referral ID Status Reason Start Date Expiration Date V isits Requested Visits Authorized [id number] Closed Auto-Generate d Referral 07/29/2022 08/28/2023 1 1 [facility] for visit Narrative* Diagnostic Procedure Only (Routine) - Closed Specialty Diagnoses / Procedures Referred By Contac t Referred To Contact BR IMAGING Diagnoses Inconclusive mammogram Procedures SHILOH DIAGNOSTIC BILAT DIAGNOSTIC MAMMOGRAPHY COMPUTER-AIDED DETCJ Jaimee Brown PA-C [address] [place] [address] Br Imaging [address] [place] [address] Referral ID Status Reason Start Date Expiration Date V isits Requested Visits Authorized [id number] Closed Auto-Generate d Referral 10/04/2021 11/03/2022 1 1 [facility] for visit Narrative* Diagnostic Procedure Only (Routine) - Closed Specialty Diagnoses / Procedures [facility] Diagnoses Chronic active hepatitis C (HCC) Procedures US ABD RT UPPER QUADRANT US ABDOMINAL REAL TIME W/IMAGE LIMITED Josué Blevins MD [address] [place] [address] Us Imaging Referral ID Status Reason Start Date Expiration Date V isits Requested Visits Authorized [id number] Closed Auto-Generate d Referral 11/23/2021 12/23/2022 1 1 [facility] for visit Narrative* Outpatient Procedure (Routine) - Closed Specialty Diagnoses / Procedures [facility] Diagnoses History of colonic polyps Procedures COLONOSCOPY DIAGNOSTIC COLONOSCOPY FLX DX W/COLLJ SPEC WHEN PFRMD Josué Blevins MD [address] [place] [address] [facility] [address] [place] [address] Referral ID Status Reason Start Date Expiration Date V isits Requested Visits Authorized [id number] Closed Auto-Generate d Referral 11/23/2021 11/23/2022 1 1 [facility] for visit Narrative* Auth/Cert Specialty Diagnoses / Procedures [facility] Referred To Contact Diagnoses Radiculopathy, lumbar region Spinal stenosis, lumbar region, without neurogenic claudication Radiculopathy, lumbar region [M54.16] Spinal stenosis, lumbar region, without neurogenic claudication [M48.061] Procedures NJX AA&/STRD TFRML EPI LUMBAR/SACRAL 1 LEVEL INJECTION ANESTHETIC AGENT/STEROID TRANSFORAMINAL EPIDURAL W/ IMAGING GUIDANCE LUMBAR BILATERAL L[facility] [address] [place] [address] Referral ID Status Reason Start Date Expiration Date Visits Re quested Visits Authorized [id number] [facility] Diagnostic Procedure Only (Routine) - Closed Specialty Diagnoses / Procedures Referred By Contac t Referred To Contact BR IMAGING Diagnoses Breast pain Procedures SHILOH DIAGNOSTIC BILAT DIAGNOSTIC MAMMOGRAPHY COMPUTER-AIDED DETCJ BI Memo Huber MD [address] [place] [address] Br Imaging [address] [place] [address] Referral ID Status Reason Start Date Expiration Date V isits Requested Visits Authorized [id number] Closed Auto-Generate d Referral 07/29/2022 08/28/2023 1 1 [facility] Summary Purpose Family History No Family History Records FoundNo Family History Records FoundNo Family History Records FoundNo Family History Records Found Advance Directives No Advanced Directives Records FoundDocuments on File Type Date Recorded 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 Advance Directive(s) 10/12/2018 8:00 AM Advance Directive(s) 09/27/2018 12:15 PM Advance Directive(s) 05/23/2018 9:34 AM Advance Directive(s) 12/20/2017 1:02 PM Advance Directive(s) 06/30/2017 7:16 AM Advance Directive(s) 04/26/2017 11:29 AM Advance Directive(s) 08/23/2016 8:33 AM Advance Directive(s) 07/12/2016 9:36 AM Advance Directive(s) 07/07/2016 1:51 PM Advance Directive(s) 05/24/2016 8:55 AM Advance Directive(s) 11/21/2015 12:44 PM Advance Directive(s) 10/20/2015 12:55 PM Advance Directive(s) 10/17/2015 10:37 AM Advance Directive(s) 10/02/2015 3:56 PM Documents on File Type Date Recorded 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 Advance Directive(s) 10/12/2018 8:00 AM Advance Directive(s) 09/27/2018 12:15 PM Advance Directive(s) 05/23/2018 9:34 AM Advance Directive(s) 12/20/2017 1:02 PM Advance Directive(s) 06/30/2017 7:16 AM Advance Directive(s) 04/26/2017 11:29 AM Advance Directive(s) 08/23/2016 8:33 AM Advance Directive(s) 07/12/2016 9:36 AM Advance Directive(s) 07/07/2016 1:51 PM Advance Directive(s) 05/24/2016 8:55 AM Advance Directive(s) 11/21/2015 12:44 PM Advance Directive(s) 10/20/2015 12:55 PM Advance Directive(s) 10/17/2015 10:37 AM Advance Directive(s) 10/02/2015 3:56 PM Documents on File Type Date Recorded 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 Advance Directive(s) 11/27/2021 2:06 PM Advance Directive(s) 10/12/2018 8:00 AM Advance Directive(s) 09/27/2018 12:15 PM Advance Directive(s) 05/23/2018 9:34 AM Advance Directive(s) 12/20/2017 1:02 PM Advance Directive(s) 06/30/2017 7:16 AM Advance Directive(s) 04/26/2017 11:29 AM Advance Directive(s) 08/23/2016 8:33 AM Advance Directive(s) 07/12/2016 9:36 AM Advance Directive(s) 07/07/2016 1:51 PM Advance Directive(s) 05/24/2016 8:55 AM Advance Directive(s) 11/21/2015 12:44 PM Advance Directive(s) 10/20/2015 12:55 PM Advance Directive(s) 10/17/2015 10:37 AM Advance Directive(s) 10/02/2015 3:56 PM Documents on File Type Date Recorded 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 Advance Directive(s) 11/27/2021 2:06 PM Advance Directive(s) 10/12/2018 8:00 AM Advance Directive(s) 09/27/2018 12:15 PM Advance Directive(s) 05/23/2018 9:34 AM Advance Directive(s) 12/20/2017 1:02 PM Advance Directive(s) 06/30/2017 7:16 AM Advance Directive(s) 04/26/2017 11:29 AM Advance Directive(s) 08/23/2016 8:33 AM Advance Directive(s) 07/12/2016 9:36 AM Advance Directive(s) 07/07/2016 1:51 PM Advance Directive(s) 05/24/2016 8:55 AM Advance Directive(s) 11/21/2015 12:44 PM Advance Directive(s) 10/20/2015 12:55 PM Advance Directive(s) 10/17/2015 10:37 AM Advance Directive(s) 10/02/2015 3:56 PM Reason for Referral Specialty Diagnoses / Procedures Referred By Contac t Referred To Contact Jaimee Palomares PA-C [address] [place] [address] Referral ID Status Reason Start Date Expiration Date V isits Requested Visits Authorized [id number] Pending Review 1 1 Referral ID Status Reason Start Date Expiration Date V isits Requested Visits Authorized [id number] Pending Review 1 1 Specialty Diagnoses / Procedures Referred By Contac t Referred To Contact Diagnoses Radiculopathy, lumbar region Spinal stenosis of lumbar region without neurogenic claudication Procedures CONSULT TO [facility] Denice Gr, SARAI.SENIOR CONTRACTS ADMINISTRATOR [address] [place] [address] [address] Referral ID Status Reason Start Date Expiration Date Visits Requested Visits Authorized [id number] Authorized PCP Requested Referral 12/09/2021 03/09/2022 1 1 Specialty Diagnoses / Procedures Referred By Contac t Referred To Contact Urology Diagnoses History of urinary urgency Procedures CONSULT TO UROLOGY OFFICE/OUTPATIENT [facility] 60-74 MINUTES Denice Gr, SARAI.SENIOR CONTRACTS ADMINISTRATOR [address] [place] [address] Referral ID Status Reason Start Date Expiration Date Visits Requested Visits Authorized [id number] Authorized PCP Requested Referral 12/09/2021 12/09/2022 1 1 Specialty Diagnoses / Procedures Referred By Contac t Referred To Contact Diagnoses Other chronic pain Procedures CONSULT TO [facility] Denice Gr APRN.SENIOR CONTRACTS ADMINISTRATOR [address] [place] [address] Home [facility] [address] [place] [address] Referral ID Status Reason Start Date Expiration Date V isits Requested Visits Authorized [id number] Closed PCP Requested Referral 01/04/2022 04/04/2022 1 1 Specialty Diagnoses / Procedures Referred By Contac t Referred To Contact MR IMAGING Diagnoses Cognitive impairment, mild, so stated Memory impairment Slurred speech Procedures MRI BRAIN WO IVCON MRI BRAIN BRAIN STEM W/O CONTRAST MATERIAL Jaimee Palomares PA-C [address] [place] [address] Mr Imaging Referral ID Status Reason Start Date Expiration Date Visits Requested Visits Authorized [id number] Pending Review Auto-Generat ed Referral 02/27/2022 03/29/2023 1 1 Specialty Diagnoses / Procedures Referred By Contac t Referred To Contact Neurology Diagnoses Memory impairment Chronic hepatitis C without hepatic coma (HCC) Alcohol abuse, in remission Procedures CONSULT TO NEUROLOGY OFFICE/OUTPATIENT [facility] MDM 60-74 MINUTES Jaimee Palomares PA-C [address] [place] [address] Referral ID Status Reason Start Date Expiration Date Visits Requested Visits Authorized [id number] Authorized PCP Requested Referral 02/25/2022 02/25/2023 1 1 Specialty Diagnoses / Procedures Referred By Contac t Referred To Contact CT IMAGING Diagnoses Lung nodules Procedures CT CHEST WO IVCON DIAGNOSTIC COMPUTED TOMOGRAPHY THORAX W/O CNTRST Jaimee Palomares PA-C [address] [place] [address] Ct Imaging Referral ID Status Reason Start Date Expiration Date Visits Requested Visits Authorized [id number] Pending Review Auto-Generat ed Referral 06/13/2023 1 1 Specialty Diagnoses / Procedures Referred By Contac t Referred To Contact Memo Huber MD [address] [place] [address] Referral ID Status Reason Start Date Expiration Date Visits Re quested Visits Authorized [id number] Closed 1 1 Referral ID Status Reason Start Date Expiration Date Visits Re quested Visits Authorized [id number] Closed 1 1 Specialty Diagnoses / Procedures Referred By Yana t Referred To Contact Breast Diseases Diagnoses Mastodynia of left breast Dense breast tissue Procedures CONSULT TO BREAST CENTER OFFICE/OUTPATIENT [facility] MDM 60-74 MINUTES Jenifer Yeager APRN.[facility] [address] [place] [address] Referral ID Status Reason Start Date Expiration Date Visits Requested Visits Authorized [id number] Authorized PCP Requested Referral 10/20/2022 10/20/2023 1 1 Specialty Diagnoses / Procedures Referred By Yana cartwright Referred To Contact MR IMAGING Diagnoses Transient cerebral ischemia, unspecified type Balance problem Falls frequently Procedures MRI BRAIN WO IVCON MRI BRAIN BRAIN STEM W/O CONTRAST MATERIAL Urvashi Hughes, SARAI.SENIOR CONTRACTS ADMINISTRATOR [address] [place] [address] Mr Imaging Referral ID Status Reason Start Date Expiration Date Visits Requested Visits Authorized [id number] Pending Review Auto-Generat ed Referral 12/16/2022 01/15/2024 1 1 Specialty Diagnoses / Procedures Referred By Yana cartwright Referred To Contact [facility] Diagnoses Cognitive impairment Hallucinations Procedures EPIL EEG ROUTINE ELECTROENCEPHALOGRAM REC COMA/SLEEP ONLY Urvashi Hughes, SARAI.SENIOR CONTRACTS ADMINISTRATOR [address] [place] [address] [address] Referral ID Status Reason Start Date Expiration Date Visits Requested Visits Authorized [id number] Authorized Auto-Generat ed Referral 12/16/2022 12/17/2023 1 1 Specialty Diagnoses / Procedures Referred By Yana t Referred To Contact Diagnoses Alcohol abuse, in remission Polysubstance abuse (HCC) Depression, unspecified depression type Procedures CONSULT TO PSYCHIATRY OFFICE/OUTPATIENT [facility] 60-74 MINUTES Urvashi Hughes APRN.SENIOR CONTRACTS ADMINISTRATOR [address] [place] [address] Referral ID Status Reason Start Date Expiration Date Visits Requested Visits Authorized [id number] Pending Review PCP Requested Referral 12/16/2022 12/16/2023 1 1 Referral ID Status Reason Start Date Expiration Date Visits Re quested Visits Authorized [id number] Closed 1 1 Specialty Diagnoses / Procedures Referred By Contac t Referred To Contact Diagnoses Family history of breast cancer Family history of ovarian cancer Procedures CONSULT TO MEDICAL GENETICS - CANCER MEDICAL GENETICS COUNSELING EACH 30 MINUTES Agustina Brown PA-C [id number] [place] [address] [facility] [place] [address] [place] [address] Referral ID Status Reason Start Date Expiration Date Visits Requested Visits Authorized [id number] Authorized PCP Requested Referral Auto-Generate d Referral 02/14/2023 02/14/2024 1 1 Specialty Diagnoses / Procedures Referred By Contac t Referred To Contact [facility] Diagnoses Primary osteoarthritis of right hip Lumbar radiculopathy Procedures PT AQUATIC REHAB FOLLOW UP ORDER THER PX 1/> AREAS EACH 15 MIN AQUA THER W/XERSS Pt c Bath [address] [place] [address] [facility] [place] [address] Referral ID Status Reason Start Date Expiration Date Visits Requested Visits Authorized [id number] Pending Review PCP Requested Referral Auto-Generate d Referral 02/16/2023 05/17/2023 1 1 Specialty Diagnoses / Procedures Referred By Contac t Referred To Contact MR IMAGING Diagnoses Transient cerebral ischemia, unspecified type Balance problem Falls frequently Procedures MRI BRAIN WO IVCON MRI BRAIN BRAIN STEM W/O CONTRAST MATERIAL Urvashi Hughes, SENIOR BUSINESS ARCHITECT.SENIOR CONTRACTS ADMINISTRATOR [address] [place] [address] Mr Imaging [place] [address] Referral ID Status Reason Start Date Expiration Date V isits Requested Visits Authorized [id number] Closed Auto-Generate d Referral 01/12/2023 03/13/2023 1 1 Specialty Diagnoses / Procedures [facility] Referred To Contact MR IMAGING Diagnoses Weakness of both hands Numbness and tingling in both hands Complaining of cold hands Procedures MRI CERVICAL SPINE WO IVCON MRI SPINAL CANAL CERVICAL W/O CONTRAST MATRL Flo Martino MD [facility] [place] [id number] Mr Imaging [place] [address] Referral ID Status Reason Start Date Expiration Date V isits Requested Visits Authorized [id number] Open Auto-Generate d Referral 05/10/2023 06/08/2024 1 1 Specialty Diagnoses / Procedures Referred By Contac t Referred To Contact [facility] Diagnoses Complaining of cold hands Procedures US ARM ARTERIAL KAMRAN VAS LAB DUP-SCAN UXTR ART/ARTL BPGS COMPL BI STUDY Flo Martino MD [address] [place], [place] [id number] [facility] [place] [address] [place] [address] Referral ID Status Reason Start Date Expiration Date Visits Requested Visits Authorized [id number] Authorized Auto-Generat ed Referral 3 05/09/2024 1 1 Specialty Diagnoses / Procedures Referred By Contact Referred To Contact [facility] Diagnoses Weakness of both hands Numbness and tingling in both hands Procedures EMG(NEURO/NI) NERVE CONDUCTION STUDIES 9-10 STUDIES Flo Martino MD [facility] [place] [id number] Neurological [place] [address] [place] [address] Referral ID Status Reason Start Date Expiration Date Visits Requested Visits Authorized [id number] Authorized Auto-Generat ed Referral 3 05/10/2024 1 1 Additional Source Comments INFORMATION SOURCE (unrecogn ized section and content) DATE CREATED AUTHOR AUTHOR'S ORGANIZ ATION 05/25/2019 [facility] DATE CREATED AUTHOR AUTHOR'S ORGANIZ ATION 05/29/2023 [facility] DATE CREATED AUTHOR AUTHOR'S ORGANIZ ATION 06/12/2023 [facility] Source Comments (unrecognize d section and content) In the event this informatio n is protected by the Federal Confidentiality of Alcohol and Drug Abuse Patient Records regulations: The Federal rules restrict any use of the information to criminally investigate or prosecute any alcohol or drug abuse patient.[facility] the event this information is protected by the Federal Confidentiality of Alcohol and Drug Abuse Patient Records regulations: The Federal rules restrict any use of the information to criminally investigate or prosecute any alcohol or drug abuse patient.[facility] the event this information is protected by the Federal Confidentiality of Alcohol and Drug Abuse Patient Records regulations: The Federal rules restrict any use of the information to criminally investigate or prosecute any alcohol or drug abuse patient.[facility] the event this information is protected by the Federal Confidentiality of Alcohol and Drug Abuse Patient Records regulations: The Federal rules restrict any use of the information to criminally investigate or prosecute any alcohol or drug abuse patient.[facility] the event this information is protected by the Federal Confidentiality of Alcohol and Drug Abuse Patient Records regulations: The Federal rules restrict any use of the information to criminally investigate or prosecute any alcohol or drug abuse patient.[facility] the event this information is protected by the Federal Confidentiality of Alcohol and Drug Abuse Patient Records regulations: The Federal rules restrict any use of the information to criminally investigate or prosecute any alcohol or drug abuse patient.[facility] the event this information is protected by the Federal Confidentiality of Alcohol and Drug Abuse Patient Records regulations: The Federal rules restrict any use of the information to criminally investigate or prosecute any alcohol or drug abuse patient.[facility] the event this information is protected by the Federal Confidentiality of Alcohol and Drug Abuse Patient Records regulations: The Federal rules restrict any use of the information to criminally investigate or prosecute any alcohol or drug abuse patient.[facility] the event this information is protected by the Federal Confidentiality of Alcohol and Drug Abuse Patient Records regulations: The Federal rules restrict any use of the information to criminally investigate or prosecute any alcohol or drug abuse patient.[facility] HospitalIn the event this information is protected by the Federal Confidentiality of Alcohol and Drug Abuse Patient Records regulations: The Federal rules restrict any use of the information to criminally investigate or prosecute any alcohol or drug abuse patient.[facility] HospitalIn the event this information is protected by the Federal Confidentiality of Alcohol and Drug Abuse Patient Records regulations: The Federal rules restrict any use of the information to criminally investigate or prosecute any alcohol or drug abuse patient.[facility] HospitalIn the event this information is protected by the Federal Confidentiality of Alcohol and Drug Abuse Patient Records regulations: The Federal rules restrict any use of the information to criminally investigate or prosecute any alcohol or drug abuse patient.[facility] HospitalIn the event this information is protected by the Federal Confidentiality of Alcohol and Drug Abuse Patient Records regulations: The Federal rules restrict any use of the information to criminally investigate or prosecute any alcohol or drug abuse patient.[facility] HospitalIn the event this information is protected by the Federal Confidentiality of Alcohol and Drug Abuse Patient Records regulations: The Federal rules restrict any use of the information to criminally investigate or prosecute any alcohol or drug abuse patient.[facility] HospitalIn the event this information is protected by the Federal Confidentiality of Alcohol and Drug Abuse Patient Records regulations: The Federal rules restrict any use of the information to criminally investigate or prosecute any alcohol or drug abuse patient.[facility] HospitalIn the event this information is protected by the Federal Confidentiality of Alcohol and Drug Abuse Patient Records regulations: The Federal rules restrict any use of the information to criminally investigate or prosecute any alcohol or drug abuse patient.[facility] HospitalIn the event this information is protected by the Federal Confidentiality of Alcohol and Drug Abuse Patient Records regulations: The Federal rules restrict any use of the information to criminally investigate or prosecute any alcohol or drug abuse patient.[facility] HospitalIn the event this information is protected by the Federal Confidentiality of Alcohol and Drug Abuse Patient Records regulations: The Federal rules restrict any use of the information to criminally investigate or prosecute any alcohol or drug abuse patient.[facility] HospitalIn the event this information is protected by the Federal Confidentiality of Alcohol and Drug Abuse Patient Records regulations: The Federal rules restrict any use of the information to criminally investigate or prosecute any alcohol or drug abuse patient.[facility] HospitalIn the event this information is protected by the Federal Confidentiality of Alcohol and Drug Abuse Patient Records regulations: The Federal rules restrict any use of the information to criminally investigate or prosecute any alcohol or drug abuse patient.[facility] HospitalIn the event this information is protected by the Federal Confidentiality of Alcohol and Drug Abuse Patient Records regulations: The Federal rules restrict any use of the information to criminally investigate or prosecute any alcohol or drug abuse patient.[facility] HospitalIn the event this information is protected by the Federal Confidentiality of Alcohol and Drug Abuse Patient Records regulations: The Federal rules restrict any use of the information to criminally investigate or prosecute any alcohol or drug abuse patient.[facility] HospitalIn the event this information is protected by the Federal Confidentiality of Alcohol and Drug Abuse Patient Records regulations: The Federal rules restrict any use of the information to criminally investigate or prosecute any alcohol or drug abuse patient.[facility] HospitalIn the event this information is protected by the Federal Confidentiality of Alcohol and Drug Abuse Patient Records regulations: The Federal rules restrict any use of the information to criminally investigate or prosecute any alcohol or drug abuse patient.[facility] HospitalIn the event this information is protected by the Federal Confidentiality of Alcohol and Drug Abuse Patient Records regulations: The Federal rules restrict any use of the information to criminally investigate or prosecute any alcohol or drug abuse patient.[facility] HospitalIn the event this information is protected by the Federal Confidentiality of Alcohol and Drug Abuse Patient Records regulations: The Federal rules restrict any use of the information to criminally investigate or prosecute any alcohol or drug abuse patient.[facility] HospitalIn the event this information is protected by the Federal Confidentiality of Alcohol and Drug Abuse Patient Records regulations: The Federal rules restrict any use of the information to criminally investigate or prosecute any alcohol or drug abuse patient.[facility] HospitalIn the event this information is protected by the Federal Confidentiality of Alcohol and Drug Abuse Patient Records regulations: The Federal rules restrict any use of the information to criminally investigate or prosecute any alcohol or drug abuse patient.[facility] HospitalIn the event this information is protected by the Federal Confidentiality of Alcohol and Drug Abuse Patient Records regulations: The Federal rules restrict any use of the information to criminally investigate or prosecute any alcohol or drug abuse patient.[facility] HospitalIn the event this information is protected by the Federal Confidentiality of Alcohol and Drug Abuse Patient Records regulations: The Federal rules restrict any use of the information to criminally investigate or prosecute any alcohol or drug abuse patient.[facility] HospitalIn the event this information is protected by the Federal Confidentiality of Alcohol and Drug Abuse Patient Records regulations: The Federal rules restrict any use of the information to criminally investigate or prosecute any alcohol or drug abuse patient.[facility] HospitalIn the event this information is protected by the Federal Confidentiality of Alcohol and Drug Abuse Patient Records regulations: The Federal rules restrict any use of the information to criminally investigate or prosecute any alcohol or drug abuse patient.[facility] HospitalIn the event this information is protected by the Federal Confidentiality of Alcohol and Drug Abuse Patient Records regulations: The Federal rules restrict any use of the information to criminally investigate or prosecute any alcohol or drug abuse patient.[facility] HospitalIn the event this information is protected by the Federal Confidentiality of Alcohol and Drug Abuse Patient Records regulations: The Federal rules restrict any use of the information to criminally investigate or prosecute any alcohol or drug abuse patient.[facility] HospitalIn the event this information is protected by the Federal Confidentiality of Alcohol and Drug Abuse Patient Records regulations: The Federal rules restrict any use of the information to criminally investigate or prosecute any alcohol or drug abuse patient.[facility] HospitalIn the event this information is protected by the Federal Confidentiality of Alcohol and Drug Abuse Patient Records regulations: The Federal rules restrict any use of the information to criminally investigate or prosecute any alcohol or drug abuse patient.[facility] HospitalIn the event this information is protected by the Federal Confidentiality of Alcohol and Drug Abuse Patient Records regulations: The Federal rules restrict any use of the information to criminally investigate or prosecute any alcohol or drug abuse patient.[facility] HospitalIn the event this information is protected by the Federal Confidentiality of Alcohol and Drug Abuse Patient Records regulations: The Federal rules restrict any use of the information to criminally investigate or prosecute any alcohol or drug abuse patient.[facility] HospitalIn the event this information is protected by the Federal Confidentiality of Alcohol and Drug Abuse Patient Records regulations: The Federal rules restrict any use of the information to criminally investigate or prosecute any alcohol or drug abuse patient.[facility] HospitalIn the event this information is protected by the Federal Confidentiality of Alcohol and Drug Abuse Patient Records regulations: The Federal rules restrict any use of the information to criminally investigate or prosecute any alcohol or drug abuse patient.[facility] HospitalIn the event this information is protected by the Federal Confidentiality of Alcohol and Drug Abuse Patient Records regulations: The Federal rules restrict any use of the information to criminally investigate or prosecute any alcohol or drug abuse patient.[facility] HospitalIn the event this information is protected by the Federal Confidentiality of Alcohol and Drug Abuse Patient Records regulations: The Federal rules restrict any use of the information to criminally investigate or prosecute any alcohol or drug abuse patient.[facility] HospitalIn the event this information is protected by the Federal Confidentiality of Alcohol and Drug Abuse Patient Records regulations: The Federal rules restrict any use of the information to criminally investigate or prosecute any alcohol or drug abuse patient.[facility] HospitalIn the event this information is protected by the Federal Confidentiality of Alcohol and Drug Abuse Patient Records regulations: The Federal rules restrict any use of the information to criminally investigate or prosecute any alcohol or drug abuse patient.[facility] HospitalIn the event this information is protected by the Federal Confidentiality of Alcohol and Drug Abuse Patient Records regulations: The Federal rules restrict any use of the information to criminally investigate or prosecute any alcohol or drug abuse patient.[facility] HospitalIn the event this information is protected by the Federal Confidentiality of Alcohol and Drug Abuse Patient Records regulations: The Federal rules restrict any use of the information to criminally investigate or prosecute any alcohol or drug abuse patient.[facility] HospitalIn the event this information is protected by the Federal Confidentiality of Alcohol and Drug Abuse Patient Records regulations: The Federal rules restrict any use of the information to criminally investigate or prosecute any alcohol or drug abuse patient.[facility] HospitalIn the event this information is protected by the Federal Confidentiality of Alcohol and Drug Abuse Patient Records regulations: The Federal rules restrict any use of the information to criminally investigate or prosecute any alcohol or drug abuse patient.[facility] HospitalIn the event this information is protected by the Federal Confidentiality of Alcohol and Drug Abuse Patient Records regulations: The Federal rules restrict any use of the information to criminally investigate or prosecute any alcohol or drug abuse patient.[facility] HospitalIn the event this information is protected by the Federal Confidentiality of Alcohol and Drug Abuse Patient Records regulations: The Federal rules restrict any use of the information to criminally investigate or prosecute any alcohol or drug abuse patient.[facility] HospitalIn the event this information is protected by the Federal Confidentiality of Alcohol and Drug Abuse Patient Records regulations: The Federal rules restrict any use of the information to criminally investigate or prosecute any alcohol or drug abuse patient.[facility] HospitalIn the event this information is protected by the Federal Confidentiality of Alcohol and Drug Abuse Patient Records regulations: The Federal rules restrict any use of the information to criminally investigate or prosecute any alcohol or drug abuse patient.[facility] HospitalIn the event this information is protected by the Federal Confidentiality of Alcohol and Drug Abuse Patient Records regulations: The Federal rules restrict any use of the information to criminally investigate or prosecute any alcohol or drug abuse patient.[facility] HospitalIn the event this information is protected by the Federal Confidentiality of Alcohol and Drug Abuse Patient Records regulations: The Federal rules restrict any use of the information to criminally investigate or prosecute any alcohol or drug abuse patient.[facility]In the event this information is protected by the Federal Confidentiality of Alcohol and Drug Abuse Patient Records regulations: The Federal rules restrict any use of the information to criminally investigate or prosecute any alcohol or drug abuse patient.[facility] HospitalIn the event this information is protected by the Federal Confidentiality of Alcohol and Drug Abuse Patient Records regulations: The Federal rules restrict any use of the information to criminally investigate or prosecute any alcohol or drug abuse patient.[facility] HospitalIn the event this information is protected by the Federal Confidentiality of Alcohol and Drug Abuse Patient Records regulations: The Federal rules restrict any use of the information to criminally investigate or prosecute any alcohol or drug abuse patient.[facility] HospitalIn the event this information is protected by the Federal Confidentiality of Alcohol and Drug Abuse Patient Records regulations: The Federal rules restrict any use of the information to criminally investigate or prosecute any alcohol or drug abuse patient.[facility] HospitalIn the event this information is protected by the Federal Confidentiality of Alcohol and Drug Abuse Patient Records regulations: The Federal rules restrict any use of the information to criminally investigate or prosecute any alcohol or drug abuse patient.[facility] HospitalIn the event this information is protected by the Federal Confidentiality of Alcohol and Drug Abuse Patient Records regulations: The Federal rules restrict any use of the information to criminally investigate or prosecute any alcohol or drug abuse patient.[facility] HospitalIn the event this information is protected by the Federal Confidentiality of Alcohol and Drug Abuse Patient Records regulations: The Federal rules restrict any use of the information to criminally investigate or prosecute any alcohol or drug abuse patient.[facility] HospitalIn the event this information is protected by the Federal Confidentiality of Alcohol and Drug Abuse Patient Records regulations: The Federal rules restrict any use of the information to criminally investigate or prosecute any alcohol or drug abuse patient.[facility] HospitalIn the event this information is protected by the Federal Confidentiality of Alcohol and Drug Abuse Patient Records regulations: The Federal rules restrict any use of the information to criminally investigate or prosecute any alcohol or drug abuse patient.[facility] HospitalIn the event this information is protected by the Federal Confidentiality of Alcohol and Drug Abuse Patient Records regulations: The Federal rules restrict any use of the information to criminally investigate or prosecute any alcohol or drug abuse patient.[facility] HospitalIn the event this information is protected by the Federal Confidentiality of Alcohol and Drug Abuse Patient Records regulations: The Federal rules restrict any use of the information to criminally investigate or prosecute any alcohol or drug abuse patient.[facility] HospitalIn the event this information is protected by the Federal Confidentiality of Alcohol and Drug Abuse Patient Records regulations: The Federal rules restrict any use of the information to criminally investigate or prosecute any alcohol or drug abuse patient.[facility] HospitalIn the event this information is protected by the Federal Confidentiality of Alcohol and Drug Abuse Patient Records regulations: The Federal rules restrict any use of the information to criminally investigate or prosecute any alcohol or drug abuse patient.[facility] HospitalIn the event this information is protected by the Federal Confidentiality of Alcohol and Drug Abuse Patient Records regulations: The Federal rules restrict any use of the information to criminally investigate or prosecute any alcohol or drug abuse patient.[facility] HospitalIn the event this information is protected by the Federal Confidentiality of Alcohol and Drug Abuse Patient Records regulations: The Federal rules restrict any use of the information to criminally investigate or prosecute any alcohol or drug abuse patient.[facility] HospitalIn the event this information is protected by the Federal Confidentiality of Alcohol and Drug Abuse Patient Records regulations: The Federal rules restrict any use of the information to criminally investigate or prosecute any alcohol or drug abuse patient.[facility] HospitalIn the event this information is protected by the Federal Confidentiality of Alcohol and Drug Abuse Patient Records regulations: The Federal rules restrict any use of the information to criminally investigate or prosecute any alcohol or drug abuse patient.[facility] HospitalIn the event this information is protected by the Federal Confidentiality of Alcohol and Drug Abuse Patient Records regulations: The Federal rules restrict any use of the information to criminally investigate or prosecute any alcohol or drug abuse patient.[facility] HospitalIn the event this information is protected by the Federal Confidentiality of Alcohol and Drug Abuse Patient Records regulations: The Federal rules restrict any use of the information to criminally investigate or prosecute any alcohol or drug abuse patient.[facility] HospitalIn the event this information is protected by the Federal Confidentiality of Alcohol and Drug Abuse Patient Records regulations: The Federal rules restrict any use of the information to criminally investigate or prosecute any alcohol or drug abuse patient.[facility] HospitalIn the event this information is protected by the Federal Confidentiality of Alcohol and Drug Abuse Patient Records regulations: The Federal rules restrict any use of the information to criminally investigate or prosecute any alcohol or drug abuse patient.[facility] HospitalIn the event this information is protected by the Federal Confidentiality of Alcohol and Drug Abuse Patient Records regulations: The Federal rules restrict any use of the information to criminally investigate or prosecute any alcohol or drug abuse patient.[facility] HospitalIn the event this information is protected by the Federal Confidentiality of Alcohol and Drug Abuse Patient Records regulations: The Federal rules restrict any use of the information to criminally investigate or prosecute any alcohol or drug abuse patient.[facility] HospitalIn the event this information is protected by the Federal Confidentiality of Alcohol and Drug Abuse Patient Records regulations: The Federal rules restrict any use of the information to criminally investigate or prosecute any alcohol or drug abuse patient.[facility] HospitalIn the event this information is protected by the Federal Confidentiality of Alcohol and Drug Abuse Patient Records regulations: The Federal rules restrict any use of the information to criminally investigate or prosecute any alcohol or drug abuse patient.[facility]In the event this information is protected by the Federal Confidentiality of Alcohol and Drug Abuse Patient Records regulations: The Federal rules restrict any use of the information to criminally investigate or prosecute any alcohol or drug abuse patient.[facility] HospitalIn the event this information is protected by the Federal Confidentiality of Alcohol and Drug Abuse Patient Records regulations: The Federal rules restrict any use of the information to criminally investigate or prosecute any alcohol or drug abuse patient.[facility] HospitalIn the event this information is protected by the Federal Confidentiality of Alcohol and Drug Abuse Patient Records regulations: The Federal rules restrict any use of the information to criminally investigate or prosecute any alcohol or drug abuse patient.[facility]In the event this information is protected by the Federal Confidentiality of Alcohol and Drug Abuse Patient Records regulations: The Federal rules restrict any use of the information to criminally investigate or prosecute any alcohol or drug abuse patient.[facility] HospitalIn the event this information is protected by the Federal Confidentiality of Alcohol and Drug Abuse Patient Records regulations: The Federal rules restrict any use of the information to criminally investigate or prosecute any alcohol or drug abuse patient.[facility] HospitalIn the event this information is protected by the Federal Confidentiality of Alcohol and Drug Abuse Patient Records regulations: The Federal rules restrict any use of the information to criminally investigate or prosecute any alcohol or drug abuse patient.[facility]In the event this information is protected by the Federal Confidentiality of Alcohol and Drug Abuse Patient Records regulations: The Federal rules restrict any use of the information to criminally investigate or prosecute any alcohol or drug abuse patient.[facility] HospitalIn the event this information is protected by the Federal Confidentiality of Alcohol and Drug Abuse Patient Records regulations: The Federal rules restrict any use of the information to criminally investigate or prosecute any alcohol or drug abuse patient.[facility]In the event this information is protected by the Federal Confidentiality of Alcohol and Drug Abuse Patient Records regulations: The Federal rules restrict any use of the information to criminally investigate or prosecute any alcohol or drug abuse patient.[facility]In the event this information is protected by the Federal Confidentiality of Alcohol and Drug Abuse Patient Records regulations: The Federal rules restrict any use of the information to criminally investigate or prosecute any alcohol or drug abuse patient.[facility] HospitalIn the event this information is protected by the Federal Confidentiality of Alcohol and Drug Abuse Patient Records regulations: The Federal rules restrict any use of the information to criminally investigate or prosecute any alcohol or drug abuse patient.[facility] HospitalIn the event this information is protected by the Federal Confidentiality of Alcohol and Drug Abuse Patient Records regulations: The Federal rules restrict any use of the information to criminally investigate or prosecute any alcohol or drug abuse patient.[facility]In the event this information is protected by the Federal Confidentiality of Alcohol and Drug Abuse Patient Records regulations: The Federal rules restrict any use of the information to criminally investigate or prosecute any alcohol or drug abuse patient.[facility] HospitalIn the event this information is protected by the Federal Confidentiality of Alcohol and Drug Abuse Patient Records regulations: The Federal rules restrict any use of the information to criminally investigate or prosecute any alcohol or drug abuse patient.[facility]In the event this information is protected by the Federal Confidentiality of Alcohol and Drug Abuse Patient Records regulations: The Federal rules restrict any use of the information to criminally investigate or prosecute any alcohol or drug abuse patient.[facility] HospitalIn the event this information is protected by the Federal Confidentiality of Alcohol and Drug Abuse Patient Records regulations: The Federal rules restrict any use of the information to criminally investigate or prosecute any alcohol or drug abuse patient.[facility] HospitalIn the event this information is protected by the Federal Confidentiality of Alcohol and Drug Abuse Patient Records regulations: The Federal rules restrict any use of the information to criminally investigate or prosecute any alcohol or drug abuse patient.[facility] HospitalIn the event this information is protected by the Federal Confidentiality of Alcohol and Drug Abuse Patient Records regulations: The Federal rules restrict any use of the information to criminally investigate or prosecute any alcohol or drug abuse patient.[facility] HospitalIn the event this information is protected by the Federal Confidentiality of Alcohol and Drug Abuse Patient Records regulations: The Federal rules restrict any use of the information to criminally investigate or prosecute any alcohol or drug abuse patient.[facility] HospitalIn the event this information is protected by the Federal Confidentiality of Alcohol and Drug Abuse Patient Records regulations: The Federal rules restrict any use of the information to criminally investigate or prosecute any alcohol or drug abuse patient.[facility] HospitalIn the event this information is protected by the Federal Confidentiality of Alcohol and Drug Abuse Patient Records regulations: The Federal rules restrict any use of the information to criminally investigate or prosecute any alcohol or drug abuse patient.[facility] HospitalIn the event this information is protected by the Federal Confidentiality of Alcohol and Drug Abuse Patient Records regulations: The Federal rules restrict any use of the information to criminally investigate or prosecute any alcohol or drug abuse patient.[facility] HospitalIn the event this information is protected by the Federal Confidentiality of Alcohol and Drug Abuse Patient Records regulations: The Federal rules restrict any use of the information to criminally investigate or prosecute any alcohol or drug abuse patient.[facility] HospitalIn the event this information is protected by the Federal Confidentiality of Alcohol and Drug Abuse Patient Records regulations: The Federal rules restrict any use of the information to criminally investigate or prosecute any alcohol or drug abuse patient.[facility] HospitalIn the event this information is protected by the Federal Confidentiality of Alcohol and Drug Abuse Patient Records regulations: The Federal rules restrict any use of the information to criminally investigate or prosecute any alcohol or drug abuse patient.[facility] ClinicIn the event this information is protected by the Federal Confidentiality of Alcohol and Drug Abuse Patient Records regulations: The Federal rules restrict any use of the information to criminally investigate or prosecute any alcohol or drug abuse patient.[facility] HospitalIn the event this information is protected by the Federal Confidentiality of Alcohol and Drug Abuse Patient Records regulations: The Federal rules restrict any use of the information to criminally investigate or prosecute any alcohol or drug abuse patient.[facility] HospitalIn the event this information is protected by the Federal Confidentiality of Alcohol and Drug Abuse Patient Records regulations: The Federal rules restrict any use of the information to criminally investigate or prosecute any alcohol or drug abuse patient.[facility] HospitalIn the event this information is protected by the Federal Confidentiality of Alcohol and Drug Abuse Patient Records regulations: The Federal rules restrict any use of the information to criminally investigate or prosecute any alcohol or drug abuse patient.[facility] HospitalIn the event this information is protected by the Federal Confidentiality of Alcohol and Drug Abuse Patient Records regulations: The Federal rules restrict any use of the information to criminally investigate or prosecute any alcohol or drug abuse patient.[facility] HospitalIn the event this information is protected by the Federal Confidentiality of Alcohol and Drug Abuse Patient Records regulations: The Federal rules restrict any use of the information to criminally investigate or prosecute any alcohol or drug abuse patient.[facility] HospitalIn the event this information is protected by the Federal Confidentiality of Alcohol and Drug Abuse Patient Records regulations: The Federal rules restrict any use of the information to criminally investigate or prosecute any alcohol or drug abuse patient.[facility] HospitalIn the event this information is protected by the Federal Confidentiality of Alcohol and Drug Abuse Patient Records regulations: The Federal rules restrict any use of the information to criminally investigate or prosecute any alcohol or drug abuse patient.[facility] HospitalIn the event this information is protected by the Federal Confidentiality of Alcohol and Drug Abuse Patient Records regulations: The Federal rules restrict any use of the information to criminally investigate or prosecute any alcohol or drug abuse patient.[facility] HospitalIn the event this information is protected by the Federal Confidentiality of Alcohol and Drug Abuse Patient Records regulations: The Federal rules restrict any use of the information to criminally investigate or prosecute any alcohol or drug abuse patient.[facility] HospitalIn the event this information is protected by the Federal Confidentiality of Alcohol and Drug Abuse Patient Records regulations: The Federal rules restrict any use of the information to criminally investigate or prosecute any alcohol or drug abuse patient.[facility] HospitalIn the event this information is protected by the Federal Confidentiality of Alcohol and Drug Abuse Patient Records regulations: The Federal rules restrict any use of the information to criminally investigate or prosecute any alcohol or drug abuse patient.[facility] HospitalIn the event this information is protected by the Federal Confidentiality of Alcohol and Drug Abuse Patient Records regulations: The Federal rules restrict any use of the information to criminally investigate or prosecute any alcohol or drug abuse patient.[facility] HospitalIn the event this information is protected by the Federal Confidentiality of Alcohol and Drug Abuse Patient Records regulations: The Federal rules restrict any use of the information to criminally investigate or prosecute any alcohol or drug abuse patient.[facility] HospitalIn the event this information is protected by the Federal Confidentiality of Alcohol and Drug Abuse Patient Records regulations: The Federal rules restrict any use of the information to criminally investigate or prosecute any alcohol or drug abuse patient.[facility] HospitalIn the event this information is protected by the Federal Confidentiality of Alcohol and Drug Abuse Patient Records regulations: The Federal rules restrict any use of the information to criminally investigate or prosecute any alcohol or drug abuse patient.[facility] HospitalIn the event this information is protected by the Federal Confidentiality of Alcohol and Drug Abuse Patient Records regulations: The Federal rules restrict any use of the information to criminally investigate or prosecute any alcohol or drug abuse patient.[facility] HospitalIn the event this information is protected by the Federal Confidentiality of Alcohol and Drug Abuse Patient Records regulations: The Federal rules restrict any use of the information to criminally investigate or prosecute any alcohol or drug abuse patient.[facility] Reason for Visit (unrecogniz ed section and content) Reason Comments Medication Request Reason Comments No Show Specialty Diagnoses / Procedures Referred By Contac t Referred To Contact Pain Management / PAIN MANAGEMENT Diagnoses follow up from injection Procedures OFFICE/OUTPATIENT ESTABLISHED MOD MDM 30-39 MIN VIDEO SPEC EST Denice Gr, SARAI.SENIOR CONTRACTS ADMINISTRATOR [address] [place] [address] Denice Gr APRN.SENIOR CONTRACTS ADMINISTRATOR [address] [place] [address] Referral ID Status Reason Start Date Expiration Date Visits Re quested Visits Authorized [id number] Closed 06/20/2021 06/19/2022 1 1 Reason Comments Results Reason Comments Orders Reason Comments Forms Reason Comments Patient Update Medication Reason Comments Refill Request Appointment Reason Comments Prescription Refills Reason Comments 6 Month Exam Yearly Exam Hip Pain bilateral Neck Pain Reason Comments Chronic Hep C Labs 11/12/21 Specialty Diagnoses / Procedures Referred By Contac t Referred To Contact Diagnoses Chronic active hepatitis C (HCC) Procedures CONSULT TO HEPATOLOGY OFFICE/OUTPATIENT [facility] 60-74 MINUTES Jaimee Palomares PA-C [address] [place] [address] Referral ID Status Reason Start Date Expiration Date V isits Requested Visits Authorized [id number] Closed PCP Requested Referral 11/16/2021 11/16/2022 1 1 Reason Comments fibroscan Reason Comments Patient Update Reason Comments Follow Up Low Back Pain Reason Comments Home Care Decline Reason Comments Injections Injection questions Reason Onset Date Comments Refill Request 12/10/2021 Reason Comments Urinary Urgency Urinary Incontinence Specialty Diagnoses / Procedures Referred By Contac t Referred To Contact Urology Diagnoses History of urinary urgency Procedures CONSULT TO UROLOGY OFFICE/OUTPATIENT [facility] 60-74 MINUTES Denice Gr APRN.SENIOR CONTRACTS ADMINISTRATOR [address] [place] [address] Referral ID Status Reason Start Date Expiration Date V isits Requested Visits Authorized [id number] Closed PCP Requested Referral 12/09/2021 12/09/2022 1 1 Reason Comments Home Care Declined Reason Comments Results Fibroscan Reason Comments Vaginal Problem Reason Comments Follow Up Reason Comments Appointment Reason Onset Date Comments Refill Request 01/29/2022 Reason Comments Established Patient Neck Pain Reason Comments Follow Up Fall Fall on 01/01, surger y on right wrist by Dr Prasanth Winter Reason Comments Orders [facility] Reason Comments Returning Patient's Call Reason Comments low blood pressure Reason Onset Date Comments Refill Request 02/26/2022 Reason Comments ED Follow-up [facility] 02/24/22 Hypotenti on Reason Onset Date Comments Refill Request 03/11/2022 Reason Onset Date Comments Refill Request 03/15/2022 Reason Comments Hepatitis C Labs 03/12/22 Fibrosc an 12/18/21 in [place]. Reason Comments Refill Request Reason Onset Date Comments Follow Up Back Pain Lower back Immunizations 04/01/2022 Flu vaccination Reason Onset Date Comments Refill Request 04/19/2022 Reason Onset Date Comments Refill Request 04/23/2022 Reason Comments Patient Question Reason Comments New Patient Evaluation Consult for memor y impairment Specialty Diagnoses / Procedures Referred By Contac t Referred To Contact Neurology Diagnoses Memory impairment Chronic hepatitis C without hepatic coma (HCC) Alcohol abuse, in remission Procedures CONSULT TO NEUROLOGY OFFICE/OUTPATIENT NEW HIGH MDM 60-74 MINUTES Jaimee Palomares, ALEIDA [address] [place] [address] Referral ID Status Reason Start Date Expiration Date V isits Requested Visits Authorized [id number] Closed PCP Requested Referral 02/25/2022 02/25/2023 1 1 Reason Comments Results Reason Comments Hospital Follow Up H D/C 05/06/22 Syn cope, Hypotension Reason Comments New BP monitor needed Reason Onset Date Comments Refill Request 05/21/2022 Reason Comments Vaginal Discharge Reason Comments Patient Update Injection questions for lodi scheduling Reason Comments Follow Up Low Back Pain Reason Comments Patient Update Consult Reason Comments Hospital Follow Up Reason Comments Chest Pain Reason Comments Appointment Cancelled Specialty Diagnoses / Procedures Referred By Contac t Referred To Contact Physical Therapy / PHYSICAL THERAPY Diagnoses Spinal stenosis of lumbar region without neurogenic claudication Procedures CONSULT TO PHYSICAL THERAPY Shira Kam, SENIOR BUSINESS ARCHITECT.SENIOR CONTRACTS ADMINISTRATOR [address] [place] [address] Pt [facility] [address] [facility] [place] [place] [address] Referral ID Status Reason Start Date Expiration Date Visits Re quested Visits Authorized [id number] Closed 06/16/2022 06/19/2022 1 1 Reason Onset Date Comments Refill Request 06/18/2022 Reason Comments Orders Reason Comments Nebulizer broke Reason Comments Medication Problem Reason Comments Left Hip Pain Reason Onset Date Comments Refill Request 07/14/2022 Reason Onset Date Comments Refill Request 07/16/2022 Reason Comments Orders D/C O2 Reason Onset Date Comments Refill Request 08/05/2022 Reason Onset Date Comments Refill Request 08/16/2022 Reason Onset Date Comments Refill Request 08/17/2022 Reason Comments Handicapped placard Reason Comments Follow Up Back Pain Lower Reason Comments Breast Problem Breast pain - left b reast x2-3 months Reason Onset Date Comments Refill Request 10/26/2022 Reason Onset Date Comments Refill Request 11/22/2022 Reason Comments Hypertension Reason Comments Follow Up 4 week f/u Reason Onset Date Comments Orders 12/10/2022 Reason Comments BP monitor request Reason Comments Follow Up 3 month, cognitive d ecline Reason Comments Insurance Denial Reason Onset Date Comments Refill Request 01/04/2023 Refill Request 01/05/2023 Reason Onset Date Comments Refill Request 01/06/2023 Reason Comments Patient Update Release of care Reason Onset Date Comments Refill Request 01/28/2023 Reason Onset Date Comments Refill Request 01/31/2023 Reason Onset Date Comments Refill Request 02/07/2023 Reason Comments New Patient LT breast pain; fami ly history of breast and ovarian CA; Specialty Diagnoses / Procedures Referred By Contac t Referred To Contact Breast Diseases Diagnoses Mastodynia of left breast Dense breast tissue Procedures CONSULT TO BREAST CENTER OFFICE/OUTPATIENT NEW HIGH MDM 60-74 MINUTES Jenifer Yeager APRN.CN [address] [place] [address] Referral ID Status Reason Start Date Expiration Date V isits Requested Visits Authorized [id number] Closed PCP Requested Referral 10/20/2022 10/20/2023 1 1 Reason Comments PT Eval Specialty Diagnoses / Procedures Referred By Contac t Referred To Contact PHYSICAL THERAPY Diagnoses Primary osteoarthritis of right hip Lumbar radiculopathy Procedures CONSULT TO PHYSICAL THERAPY Ibeth Albert PA-C [address] [place] [address] [address] [facility] [address] [place] [address] Referral ID Status Reason Start Date Expiration Date V isits Requested Visits Authorized [id number] Authorized 02/09/2023 06/10/2023 20 20 Reason Onset Date Comments Refill Request 02/28/2023 Reason Comments Physical Therapy Specialty Diagnoses / Procedures Referred By Contac t Referred To Contact PHYSICAL THERAPY Diagnoses Primary osteoarthritis of right hip Lumbar radiculopathy Procedures CONSULT TO PHYSICAL THERAPY Ibeth Albert PA-C [address] [place] [address] Pt [facility] [address] [place] [address] Reason Comments Radiology US Specialty Diagnoses / Procedures Referred By Contac t Referred To Contact BR IMAGING Diagnoses Breast pain Procedures US BREAST LTD RT US BREAST UNI REAL TIME WITH IMAGE LIMITED Memo Huber MD [address] [place] [address] [facility] [address] [place] [address] Referral ID Status Reason Start Date Expiration Date V isits Requested Visits Authorized [id number] Closed Auto-Generate d Referral 07/29/2022 08/28/2023 1 1 Specialty Diagnoses / Procedures Referred By Contac t Referred To Contact MR IMAGING Diagnoses Transient cerebral ischemia, unspecified type Balance problem Falls frequently Procedures MRI BRAIN WO IVCON MRI BRAIN BRAIN STEM W/O CONTRAST MATERIAL Urvashi Hughes, SENIOR BUSINESS ARCHITECT.SENIOR CONTRACTS ADMINISTRATOR [address] [place] [address] [place] [address] Referral ID Status Reason Start Date Expiration Date V isits Requested Visits Authorized [id number] Closed Auto-Generate d Referral 01/12/2023 03/13/2023 1 1 Reason Comments ER F/U Numbness and tinglin g in Bilateral hands Care Teams (unrecognized sec tion and content) Bun Machine Operator Relationship Specialty Start Date End Date Jaimee Palomares PA-C [address] [place], [place] [address] PCP - General Family Practice 09/09/16 Bun Machine Operator Relationship Specialty Start Date End Date Jaimee Palomares PA-C [address] [place], [place] [id number] PCP - General Family Practice 09/09/16 Bun Machine Operator Relationship Specialty Start Date End Date Jaimee Palomares PA-C [address] [facility] [place] [address] PCP - General Family Practice 09/09/16 Bun Machine Operator Relationship Specialty Start Date End Date Jaimee Palomares PA-C [address] [facility], [place] [address] PCP - General Family Practice 09/09/16 Bun Machine Operator Relationship Specialty Start Date End Date Jaimee Palomares PA-C [id number] [facility], [place] [address] PCP - General Family Practice 09/09/16 Bun Machine Operator Relationship Specialty Start Date End Date Jamiee Palomares PA-C [address] [facility], [place] [address] PCP - General Family Practice 09/09/16 Bun Machine Operator Relationship Specialty Start Date End Date Jaimee Palomares PA-C [address] [facility], [place] [address] PCP - General Family Practice 09/09/16 Bun Machine Operator Relationship Specialty Start Date End Date Jaimee Palomares PA-C [address] [facility], [place] [address] PCP - General Family Practice 09/09/16 Bun Machine Operator Relationship Specialty Start Date End Date Jaimee Palomares PA-C [address] [facility], [place] [address] PCP - General Family Practice 09/09/16 Bun Machine Operator Relationship Specialty Start Date End Date Jaimee Palomares PA-C [address] [facility], [place] [address] PCP - General Family Practice 09/09/16 Bun Machine Operator Relationship Specialty Start Date End Date Jaimee Palomraes PA-C [address] [facility], [place] [address] PCP - General Family Practice 09/09/16 Bun Machine Operator Relationship Specialty Start Date End Date Jaimee Palomares PA-C [address] [facility] [place] [address] PCP - General Family Practice 09/09/16 Bun Machine Operator Relationship Specialty Start Date End Date Jaimee Palomares PA-C [address] [facility] [place] [address] PCP - General Family Practice 09/09/16 Bun Machine Operator Relationship Specialty Start Date End Date Jaimee Palomares PA-C [address] [facility] [place] [address] PCP - General Family Practice 09/09/16 Bun Machine Operator Relationship Specialty Start Date End Date Jaimee Palomares PA-C [address] [facility] [place] [address] PCP - General Family Practice 09/09/16 Bun Machine Operator Relationship Specialty Start Date End Date Jaimee Palomares PA-C [address] [facility] [place] [address] PCP - General Family Practice 09/09/16 Bun Machine Operator Relationship Specialty Start Date End Date Jaimee Palomares PA-C [address] [facility] [place] [address] PCP - General Family Practice 09/09/16 Bun Machine Operator Relationship Specialty Start Date End Date Jaimee Palomares PA-C [address] [facility] [place] [address] PCP - General Family Practice 09/09/16 Bun Machine Operator Relationship Specialty Start Date End Date Jaimee Palomares PA-C [address] [facility] [place] [address] PCP - General Family Practice 09/09/16 Bun Machine Operator Relationship Specialty Start Date End Date Jaimee Palomares PA-C [address] [facility], [place] [address] PCP - General Family Practice 09/09/16 Bun Machine Operator Relationship Specialty Start Date End Date Jaimee Palomares PA-C [address] [facility], [place] [address] PCP - General Family Practice 09/09/16 Bun Machine Operator Relationship Specialty Start Date End Date Jaimee Palomares PA-C [address] [facility], [place] [address] PCP - General Family Practice 09/09/16 Bun Machine Operator Relationship Specialty Start Date End Date Jaimee Palomares PA-C [address] [facility], [place] [address] PCP - General Family Practice 09/09/16 Bun Machine Operator Relationship Specialty Start Date End Date Jaimee Palomares PA-C [address] [facility], [place] [address] PCP - General Family Practice 09/09/16 Bun Machine Operator Relationship Specialty Start Date End Date Jaimee Palomares PA-C [address] [facility], [place] [address] PCP - General Family Practice 09/09/16 Bun Machine Operator Relationship Specialty Start Date End Date Jaimee Palomares PA-C [address] [facility], [place] [address] PCP - General Family Practice 09/09/16 Bun Machine Operator Relationship Specialty Start Date End Date Jaimee Palomares PA-C [address] [place] [address] PCP - General Family Practice 09/09/16 Bun Machine Operator Relationship Specialty Start Date End Date Jaimee Palomares PA-C [address] [facility] [place] [address] PCP - General Family Practice 09/09/16 Bun Machine Operator Relationship Specialty Start Date End Date Jaimee Palomares PA-C [address] [facility] [place] [address] PCP - General Family Practice 09/09/16 Bun Machine Operator Relationship Specialty Start Date End Date Jaimee Palomares PA-C [address] [facility] [place] [address] PCP - General Family Practice 09/09/16 Bun Machine Operator Relationship Specialty Start Date End Date Jaimee Palomares PA-C [address] [facility] [place] [address] PCP - General Family Practice 09/09/16 Bun Machine Operator Relationship Specialty Start Date End Date Jaimee Palomares PA-C [address] [facility] [place] [address] PCP - General Family Practice 09/09/16 Bun Machine Operator Relationship Specialty Start Date End Date Jaimee Palomares PA-C [address] [facility] [place] [address] PCP - General Family Practice 09/09/16 Bun Machine Operator Relationship Specialty Start Date End Date Jaimee Palomares PA-C [address] [facility] [place] [address] PCP - General Family Practice 09/09/16 Bun Machine Operator Relationship Specialty Start Date End Date Jaimee Palomares PA-C [address] [facility] [place] [address] PCP - General Family Practice 09/09/16 Bun Machine Operator Relationship Specialty Start Date End Date Jaimee Palomares PA-C [address] [facility] [place] [address] PCP - General Family Medicine 09/09/16 Bun Machine Operator Relationship Specialty Start Date End Date Jaimee Palomares PA-C [address] [facility] [place] [address] PCP - General Family Medicine 09/09/16 Bun Machine Operator Relationship Specialty Start Date End Date Jaimee Palomares PA-C [address] [facility], [place] [address] PCP - General Family Medicine 09/09/16 Bun Machine Operator Relationship Specialty Start Date End Date Jaimee Palomares PA-C [address] [facility], [place] [address] PCP - General Family Medicine 09/09/16 Bun Machine Operator Relationship Specialty Start Date End Date Jaimee Palomares PA-C [address] [facility], [place] [address] PCP - General Family Medicine 09/09/16 Bun Machine Operator Relationship Specialty Start Date End Date Jaimee Palomares PA-C [address] [facility], [place] [address] PCP - General Family Medicine 09/09/16 Bun Machine Operator Relationship Specialty Start Date End Date Jaimee Palomares PA-C [id number] [facility], [place] [address] PCP - General Family Medicine 09/09/16 Bun Machine Operator Relationship Specialty Start Date End Date Jaimee Palomares PA-C [id number] [facility], [place] [address] PCP - General Family Medicine 09/09/16 Bun Machine Operator Relationship Specialty Start Date End Date Jaimee Palomares PA-C [id number] [facility], [place] [address] PCP - General Family Medicine 09/09/16 Bun Machine Operator Relationship Specialty Start Date End Date Jaimee Palomares PA-C [id number] [facility] [place] [address] PCP - General Family Medicine 09/09/16 Bun Machine Operator Relationship Specialty Start Date End Date Jaimee Palomares PA-C [address] [facility] [place] [address] PCP - General Family Medicine 09/09/16 Bun Machine Operator Relationship Specialty Start Date End Date Jaimee Palomares PA-C [address] [facility] [place] [address] PCP - General Family Medicine 09/09/16 Bun Machine Operator Relationship Specialty Start Date End Date Jaimee Palomares PA-C [address] [facility] [place] [address] PCP - General Family Medicine 09/09/16 Bun Machine Operator Relationship Specialty Start Date End Date Jaimee Palomares PA-C [address] [facility] [place] [address] PCP - General Family Medicine 09/09/16 Bun Machine Operator Relationship Specialty Start Date End Date Jaimee Palomares PA-C [address] [facility] [place] [address] PCP - General Family Medicine 09/09/16 Bun Machine Operator Relationship Specialty Start Date End Date Jaimee Palomares PA-C [address] [facility] [place] [address] PCP - General Family Medicine 09/09/16 Bun Machine Operator Relationship Specialty Start Date End Date Jaimee Palomares PA-C [address] [facility] [place] [address] PCP - General Family Medicine 09/09/16 Bun Machine Operator Relationship Specialty Start Date End Date Jaimee Palomares PA-C [address] [facility] [place] [address] PCP - General Family Medicine 09/09/16 Bun Machine Operator Relationship Specialty Start Date End Date Jaimee Palomares PA-C [id number] [facility], [place] [address] PCP - General Family Medicine 09/09/16 Bun Machine Operator Relationship Specialty Start Date End Date Jaimee Palomares PA-C [id number] [facility], [place] [address] PCP - General Family Medicine 09/09/16 Bun Machine Operator Relationship Specialty Start Date End Date Jaimee Palomares PA-C [id number] [place] [address] PCP - General Family Medicine 09/09/16 Bun Machine Operator Relationship Specialty Start Date End Date Jaimee Palomares PA-C [id number] [place] [address] PCP - General Family Medicine 09/09/16 Bun Machine Operator Relationship Specialty Start Date End Date Jaimee Palomares PA-C [id number] [place] [address] PCP - General Family Medicine 09/09/16 Bun Machine Operator Relationship Specialty Start Date End Date Jaimee Palomares PA-C [id number] [place] [address] PCP - General Family Medicine 09/09/16 Bun Machine Operator Relationship Specialty Start Date End Date Jaimee Palomares PA-C [id number] [place] [address] PCP - General Family Medicine 09/09/16 Bun Machine Operator Relationship Specialty Start Date End Date Jaimee Palomares PA-C [id number] [place] [address] PCP - General Family Medicine 09/09/16 Bun Machine Operator Relationship Specialty Start Date End Date Jaimee Palomares PA-C [address] [facility] [place] [address] PCP - General Family Medicine 09/09/16 Bun Machine Operator Relationship Specialty Start Date End Date Jaimee Palomares PA-C [address] [facility] [place] [address] PCP - General Family Medicine 09/09/16 Bun Machine Operator Relationship Specialty Start Date End Date Jaimee Palomares PA-C [address] [facility] [place] [address] PCP - General Family Medicine 09/09/16 Bun Machine Operator Relationship Specialty Start Date End Date Jaimee Palomares PA-C [address] [facility] [place] [address] PCP - General Family Medicine 09/09/16 Bun Machine Operator Relationship Specialty Start Date End Date Jaimee Palomares PA-C [address] [facility] [place] [address] PCP - General Family Medicine 09/09/16 Bun Machine Operator Relationship Specialty Start Date End Date Jaimee Palomares PA-C [address] [facility] [place] [address] PCP - General Family Medicine 09/09/16 Bun Machine Operator Relationship Specialty Start Date End Date Jaimee Palomares PA-C [address] [facility] [place] [address] PCP - General Family Medicine 09/09/16 Bun Machine Operator Relationship Specialty Start Date End Date Jaimee Palomares PA-C [address] [facility] [place] [address] PCP - General Family Medicine 09/09/16 Bun Machine Operator Relationship Specialty Start Date End Date Jaimee Palomares PA-C [address] [facility] [place] [address] PCP - General Family Medicine 09/09/16 Bun Machine Operator Relationship Specialty Start Date End Date Jaimee Palomares PA-C [address] [facility] [place] [address] PCP - General Family Medicine 09/09/16 Bun Machine Operator Relationship Specialty Start Date End Date Jaimee Palomares PA-C [address] [facility] [place] [address] PCP - General Family Medicine 09/09/16 Bun Machine Operator Relationship Specialty Start Date End Date Jaimee Palomares PA-C [address] [facility] [place] [address] PCP - General Family Medicine 09/09/16 Bun Machine Operator Relationship Specialty Start Date End Date Jaimee Palomares PA-C [address] [facility] [place] [address] PCP - General Family Medicine 09/09/16 Bun Machine Operator Relationship Specialty Start Date End Date Jaimee Palomares PA-C [address] [facility] [place] [address] PCP - General Family Medicine 09/09/16 Bun Machine Operator Relationship Specialty Start Date End Date Jaimee Palomares PA-C [address] [facility] [place] [address] PCP - General Family Medicine 09/09/16 Bun Machine Operator Relationship Specialty Start Date End Date Jaimee Palomares PA-C [address] [facility] [place] [address] PCP - General Family Medicine 09/09/16 Bun Machine Operator Relationship Specialty Start Date End Date Jaimee Palomares PA-C [address] [place], [place] [id number] PCP - General Family Medicine 09/09/16 Bun Machine Operator Relationship Specialty Start Date End Date Jaimee Palomares PA-C [address] [place], [place] [address] PCP - General Family Medicine 09/09/16 PRN Active and Recently Administ ered Medications (unrecognized section and content) FOR RECORDS PERTAINING TO PATIENTS WHO ARE OR HAVE BEEN ENROLLED IN A CHEMICAL DEPENDENCY/SUBSTANCEABUSE PROGRAM, SOME INFORMATION MAY BE OMITTED. This clinical summary was aggregated from multiple sources. Caution should be exercised in using it in the provision of clinical care. This summary normalizes information from multiple sources, and as a consequence, information in this document may materially change the coding, format and clinical context of patient data. In addition, data may be omitted in some cases. CLINICAL DECISIONS SHOULD BE BASED ON THE PRIMARY CLINICAL RECORDS. [employer] provides no warranty or guarantee of the accuracy or completeness of information in this document.
[2023-06-16 22:43] LABS: Anion Gap 6 (5-15); BUN 27 mg/dL (7-18); BUN/Creat Ratio 23.7 RATIO (10-20); Calcium,Total 9.3 mg/dL (8.5-10.1); Chloride 104 mmol/L (98-107); Creatinine, Serum 1.14 mg/dL (0.55-1.02); EST Glomerular Filtration Rate 53 mL/min (>60); Est Glom Filt Rate - Afr Amer 64 mL/min (>60); Estimated Creatinine Clearance 56.25 ml/min; Glucose 103 mg/dL (74-106); Potassium 3.9 mmol/L (3.5-5.1); Sodium Level 138 mmol/L (136-145)
[2023-06-16 22:53] LABS: Lactic Acid 1.5 mmol/L (0.4-1.9)
[2023-06-17] VITALS (10 sets, daily range): BP systolic 98–137; BP diastolic 70–93; PULSE 74–86; RESP 16–18; TEMP 36.5–37; O2SAT 93–97; BMI 29.2
--- NOTE | 2023-06-17 00:17 | PCM.HP.STD ---
HPI - General General Date of Admission: 06/17/23 Date of Service: 06/17/23 Chief Complaint: Worsening cervical spine pain and generalized weakness HPI Narrative KAMI JARQUIN, is a 53 F who presented to [facility] ED on 06/17/2023 with worsening cervical spine pain and generalized weakness. Patient was recently hospitalized from 05/15 through 05/23. Presented at that time with multiple falls at home, weakness in all 4 extremities, difficulty with dexterity and eating, and neck pain. Was found to have C3-5 spondylolisthesis with severe stenosis with cord compression and cord signal changes. S/p C3-5 anterior cervical discectomy and fusion with plate instrumentation with Dr. Skinner with orthopedics on 05/18. Patient seemed to tolerate procedure well and was discharged on 05/[address] [facility] [place]. Was then discharged home from there about 1 week later and saw orthopedics in the office on 06/01. Dr. Skinner noted at that time that patient stated she was doing well, had increase strength in her arms. She did continue to have some tingling in her fingers and her cervical spine remained sore. Noted that she was wearing her collar at all times and her incision having covered at all times as well. Was taking oxycodone once daily for the pain and tolerating this well. Patient seen at bedside in the ED. Patient was laying flat in bed, cervical collar in place. Patient was talking with her family member on the phone when I entered the room. Patient stated that since her office visit with orthopedics, she felt like she had not been progressing well and had generally been getting weaker at home. She continues to report tingling in her fingers but also felt like her dexterity in her hands had somewhat worsened. She also generally felt weaker and had poor p.o. intake over the last few days. She and felt like she was not able to be taken care of appropriately at home, so she came into the ED for further evaluation. She reports moderate cervical pain at this time. States the pain was previously manageable on Tylenol, as needed ibuprofen and occasional oxycodone. However the pain has been worse over the last several days. She otherwise denies any fevers or chills, chest pain, shortness of breath, abdominal pain or discomfort. No other acute concerns this time. [facility] Medical History Acute cholecystitis Acute hyponatremia Acute pancreatitis Alcohol abuse Alcohol withdrawal Ambulates with cane Anemia Anemia of unknown etiology Anxiety Arthritis Bipolar disorder Chronic pain COPD (chronic obstructive pulmonary disease) Depression Desire for detoxification Distal radius fracture, right Easy bruising Elevated LFTs Excessive bleeding Gastric reflux High cholesterol History of edema Hyperglycemia Hypertension Hypothyroidism Marijuana use Migraines On home oxygen therapy Osteoporosis Pulmonary embolism Pulmonary embolism Recurrent syncope Renal insufficiency Restless legs Shortness of breath on exertion Sleep apnea Smoker Transient hypotension Walker as ambulation aid Wears glasses Home Medications bupropion HCl 150 mg tablet,12 hr sustained-release (Wellbutrin SR) 300 mg PO DAILY depression 04/30/21 [History Last Taken 06/16/23] ferrous sulfate 325 mg (65 mg iron) tablet 325 mg PO BID supplement 04/30/21 [History Last Taken 06/16/23] levothyroxine 25 mcg tablet 25 mcg PO DAILY hypothyroid 04/30/21 [History Last Taken 06/16/23] tiotropium bromide 2.5 mcg/actuation mist for inhalation (Spiriva Respimat) 2 puff inhalation DAILY COPD 04/30/21 [History Last Taken 06/16/23] albuterol sulfate 2.5 mg/3 mL (0.083 %) solution for nebulization 2.5 mg inhalation Q6H PRN PRN Shortness Of Breath Or Wheezing 10/12/21 [History Last Taken 06/16/23] albuterol sulfate 90 mcg/actuation aerosol inhaler (Ventolin HFA) 1 puff inhalation Q4H PRN PRN Shortness Of Breath Or Wheezing 10/12/21 [History Last Taken 05/14/23 10:00 1 puff] cholecalciferol (vitamin D3) 25 mcg (1,000 unit) capsule (Vitamin D3) 25 mcg PO DAILY vitamin 10/12/21 [History Last Taken 06/16/23] atorvastatin 40 mg tablet 40 mg PO QHS cholesterol 02/03/22 [History Last Taken 06/16/23] omeprazole 20 mg capsule,delayed release 20 mg PO DAILY reflux 03/25/22 [History Last Taken 06/16/23] thiamine HCl (vitamin B1) 50 mg tablet 50 mg PO DAILY vitamin 03/25/22 [History Last Taken 06/16/23] baclofen 10 mg tablet 5 mg (1/2 x 10 mg) PO BID pain #30 tabs 05/06/22 [Rx Last Taken 06/16/23] cyanocobalamin (vitamin B-12) 1,000 mcg tablet (Vitamin B-12) 1,000 mcg PO DAILY supplement 07/27/22 [History Last Taken 06/16/23] mirabegron 25 mg tablet,extended release 24 hr (Myrbetriq) 25 mg PO DAILY OVERACTIVE BLADDER 07/27/22 [History Last Taken 06/16/23] olanzapine 10 mg tablet 10 mg PO DAILY MOOD 10/28/22 [History Last Taken 06/16/23] oxybutynin chloride 10 mg tablet,extended release 24 hr 10 mg PO DAILY OVERACTIVE BLADDER 10/28/22 [History Last Taken 06/16/23] trazodone 150 mg tablet 150 mg PO QHS SLEEP 10/28/22 [History Last Taken 06/16/23] amlodipine 10 mg tablet 10 mg PO DAILY bp #30 tabs 12/29/22 [Rx Last Taken 06/16/23] metoprolol succinate 50 mg tablet,extended release 24 hr 50 mg PO DAILY bp 05/15/23 [History Last Taken 06/16/23] budesonide 0.5 mg/2 mL suspension for nebulization 0.5 mg (2 mL) inhalation Q12H.RT #0 mL 05/23/23 [Rx Last Taken 06/16/23] famotidine 20 mg tablet 20 mg PO QHS #0 tabs 05/23/23 [Rx Last Taken 06/16/23] nut.tx.comp. immune systm,reg 0.08 gram-1.4 kcal/mL oral liquid (Ensure Surgery) 237 ml PO TIDCM #0 mL 05/23/23 [Rx Last Taken 06/08/23] oxycodone 5 mg tablet 5 mg PO Q4H PRN PRN Pain Score 6-10 3 days #14 tabs 05/23/23 [Rx Last Taken Unknown] pregabalin 150 mg capsule (Lyrica) 150 mg PO TID pain 3 days #9 caps 05/23/23 [Rx Last Taken 06/16/23] meloxicam 15 mg tablet 15 mg PO DAILY pain 1 month #30 tabs 06/02/23 [Rx Last Taken 06/16/23] acetaminophen 650 mg tablet,extended release (Tylenol 8 Hour) 650 mg PO Q8H PRN pain 06/17/23 [History Last Taken 06/16/23] Allergy/AdvReac Type Severity Reaction Status Date / Time fentanyl Allergy Anaphylaxis Verified 06/16/23 20:52 varenicline [From Chantix] AdvReac hallucinati Verified 06/16/23 20:52 ons Family History Other Cancer Surgical History H/O skin graft H/O: hysterectomy Hx of cholecystectomy Hx of tonsillectomy Social History household members: none Smoking Status: Current every day smoker tobacco type: cigarettes alcohol intake: former substance use type: marijuana additional social history: disabled ROS Constitutional Constitutional: Reports weakness; Denies chills, fatigue or fever(s) Eyes Eyes: Denies change in vision Cardiovascular Cardiovascular: Denies chest pain Respiratory/Chest Respiratory/Chest: Denies cough Gastrointestinal Gastrointestinal: Denies abdominal pain Musculoskeletal Musculoskeletal: Reports neck pain Neurologic Neurologic: Reports abnormal gait, focal weakness, paresthesias and tingling; Denies disequilibrium, dizziness, headache(s) or numbness Vital Signs Vital Signs Vital Signs: 06/16/23 20:53 06/16/23 20:52 Temperature 96.9 F L Temperature Source Temporal Pulse Rate 73 Respiratory Rate 18 Blood Pressure 87/67 L 104/92 H Blood Pressure Mean 73 96 Pulse Ox 98 Oxygen Delivery Method Room Air Weight Weight: 88.8 kg Body Mass Index (BMI) 29.7 Physical Exam Const alert, oriented x3 and average body habitus Constitutional Narrative: Middle-aged female, appears older than stated age, laying flat in bed with c-collar in place, little movement noted as patient reports moderate cervical pain with most movements, otherwise conversing normally, no acute distress. General Appearance: cooperative HEENT normocephalic, head/scalp atraumatic, hearing grossly normal bilaterally and nasal mucous membranes and turbinates normal Eyes PERRL, EOMs intact bilaterally and conjunctivae normal Lymph Lymphatic: no lymphadenopathy noted Chest inspection of chest normal Resp normal respiratory effort, normal air movement, no use of accessory muscles and clear to auscultation bilaterally Cardio regular rate, regular rhythm, no murmurs and peripheral pulses 2+ throughout GI normal to inspection, nondistended, normoactive bowel sounds, soft to palpation, non-tender and non-distended Back/Spine Back/Spine Narrative: C-collar in place, did not attempt any movement of patient. Extremity normal to inspection and no pedal edema Skin no rashes or lesions noted Neuro moves all extremities Speech: speech normal Psych mental status grossly normal Mood & Affect: anxious Results Lab / Micro Data 06/16/23 22:10 06/16/23 22:10 Labs: Laboratory Results - last 24 hr 06/16/23 22:10: WBC 7.2, RBC 4.38, Hgb 12.8, Hct 40.1, MCV 91.6, MCH 29.2, MCHC 31.9 L, RDW Std Deviation 45.1 H, RDW Coeff of Sandeep 13.3, Plt Count 325, MPV 9.7, Immature Gran % (Auto) 0.600, Neut % (Auto) 54.3, Lymph % (Auto) 21.6, Jackson % (Auto) 13.0 H, Eos % (Auto) 9.9 H, Baso % (Auto) 0.6, Absolute Neuts (auto) 3.9, Absolute Lymphs (auto) 1.55, Nucleated RBC % 0, Sodium 138, Potassium 3.9, Chloride 104, Carbon Dioxide 28.0, Anion Gap 6, BUN 27 H, Creatinine 1.14 H, Estim Creat Clear Calc 56.25, Est GFR (MDRD) Af Amer 64, Est GFR (MDRD) Non-Af 53 L, BUN/Creatinine Ratio 23.7 H, Glucose 103, Calcium 9.3 06/16/23 22:20: Lactic Acid 1.5 Micro: Microbiology 06/16/23 22:55 Mucosa - Nose SARS-CoV-2, Influenza & RSV (PCR) - Final Imagaing Radiology Impression Chest X-Ray 06/16/23 21:55 IMPRESSION: No evidence of active intrathoracic disease. Electronically Signed: Nichol Resendiz MD at 22:08 EST Reading Location ID and State: [address] [place] [address] Tel , Service support , Assessment & Plan Assessment/Plan (1) Cervical spine pain: (2) Generalized weakness: (3) S/P cervical spinal fusion: PLAN: Plan Patient is a 53-year-old female who presented to [facility] ED on 06/17/2023 with worsening cervical spine pain and generalized weakness. 1. Worsening C-spine pain, concern for hardware malfunction after recent C3-5 fusion, generalized weakness CT C-spine on admit showed postsurgical changes C3-C5 with slight increase separation of hardware from vertebral body at C3 level, mild prevertebral edema at C4-C6 slightly increased compared to prior x-rays. Generalized weakness likely due to decreasing level of exercise, poor p.o. intake in setting of pain. ? Admit under inpatient status to [facility]. Orthopedics consulted. PT/OT/case management consulted. Pain control with scheduled Tylenol, Mobic, oxycodone 5 mg every 4 hours as needed. 2. Mild ERICA ? Creatinine 1.14, BUN 27 on admit. Baseline creatinine 0.5-0.7. Suspect prerenal etiology in setting of poor p.o. intake. S/p 1 L IV fluids in the ED. Follow-up a.m. BMP. Monitor urine output. Chronic medical conditions: ? Hypertension: Holding home amlodipine and Toprol for now, restart as needed. ? Mood disorder/insomnia: Continue home Wellbutrin, Zyprexa, trazodone at night. ? Chronic pain: Continue home Lyrica and baclofen. ? Hyperlipidemia: Continue statin. ? COPD: Continue home inhalers. ? GERD: Continue home PPI. ? Hypothyroidism: Continue home Synthroid. DVT prophylaxis: Lovenox CODE STATUS: Full code, verified Expected disposition: TBD Total clinical time spent by myself addressing the patient's medical issues, reviewing all the data, and collaborating with patient's care team: 55 minutes. Charges/Coding Visit Charges Inpatient E&M: 56708 Init Hosp L2
[2023-06-17 00:36] LABS: Bacteria 0 SEEN /hpf (None Seen); Mucous, Urine 0 SEEN /hpf (<or=2+); Red Blood Cells-Urine 0 SEEN /hpf (0-5); Squamous Epithelial Cells - UA 0 SEEN /hpf (5-10); White Blood Cells 0 SEEN /hpf (0-5)
--- OUTSIDE RECORDS SUMMARY | 2023-06-17 00:38 | XMS RPT_ITS | CCD ---
Author Name Unknown Address [address] [place] [address] Organization [facility] Care Team Providers Care Print Production Coordinator Name Role Phone MATTHEW ULLOA Admitting Unavailable MATTHEW ULLOA Attending Unavailable MATTHEW ULLOA Admitting Unavailable MATTHEW ULLOA Attending Unavailable MATTHEW ULLOA Admitting Unavailable MATTHEW ULLOA Attending Unavailable MEMO HUBER Unavailable KATHRYN LANG MD Admitting Unavailable KATHRYN LANG MD Attending Unavailable KATHRYN LANG MD Primary Care Unavailable PROVIDER, UNKNOWN Consulting Unavailable Jaimee Palomares PA-C Primary Care Provider [phone] Jaimee Palomares PA-C Primary Care Provider [phone] Jaimee Palomares PA-C Primary Care Provider [phone] Jaimee Palomares PA-C Primary Care Provider [phone] Jaimee PALOMARES Primary Care Unavailable ANAY ESTEBAN [...] [FENTANYL] Drug Allergy 6 Other: See Comments [facility] Repository (20 sources) varenicline; Translations: [VARENICLINE] Drug Allergy 7 Intolerance [facility] Repository (1 source) varenicline Drug Allergy [facility] Repository Medications Current Medications Medication Drug Class(es) [...] Drug Class(es) Dates Sig (Normalized) Sig (Original) [id number] 200 actuat albuterol 0.09 mg/actuat metered dose [...] aftercare (3 sources) Polypharmacy ; Translations: [Other financial accountant (current) drug therapy] Episodic Other aftercare (1 [...] 10-21-2021 Episodic Other aftercare (1 source) Other financial accountant (current) drug therapy; Translations: [Polypharmacy] Onset: 08-26-2022 [...] 70 mm[Hg] Flo Martino MD Work Phone: [facility] 05-10-2023 11:11-0500 Heart rate 67 /min Flo Martino MD Work Phone: [facility] 05-10-2023 11:11-0500 Respiratory rate 20 /min Flo Martino MD Work Phone: [facility] 05-10-2023 11:11-0500 SaO2% (BldA) [Mass fraction] 99 % Flo Martino MD Work Phone: [facility] 05-10-2023 11:11-0500 Systolic blood pressure 118 mm[Hg] Flo Martino MD Work Phone: [facility] 02-14-2023 10:24-0400 Body height 165.1 cm Carmelita Ragsdale MD Work Phone: [facility] 02-14-2023 10:24-0400 Body weight 70.31 kg Carmelita Ragsdale MD Work Phone: [facility] 12-16-2022 11:20-0400 Body weight 64.05 kg Urvashi Dahlhausen ROBOTIC MACHINE OPERATOR.INSPECTOR EXHA[employer] EMISSIONS Work Phone: [facility] 12-16-2022 11:20-0400 Diastolic blood pressure 100 mm[Hg] Urvashi Dahlhausen ROBOTIC MACHINE OPERATOR.INSPECTOR EXHAUST EMISSIONS Work Phone: [facility] 12-16-2022 11:20-0400 Heart rate 106 /min Urvashi Dahlhausen ROBOTIC MACHINE OPERATOR.INSPECTOR [employer]HA[employer] EMISSIONS Work Phone: [facility] 12-16-2022 11:20-0400 Respiratory rate 20 /min Urvashi Dahlhausen ROBOTIC MACHINE OPERATOR.INSPECTOR [employer]HA[employer] EMISSIONS Work Phone: [facility] 12-16-2022 11:20-0400 SaO2% (BldA) [Mass fraction] 98 % Urvashi Dahlhausen ROBOTIC MACHINE OPERATOR.INSPECTOR [employer]HA[employer] EMISSIONS Work Phone: [facility] 12-16-2022 11:20-0400 Systolic blood pressure 168 mm[Hg] Urvashi Dahlhausen ROBOTIC MACHINE OPERATOR.INSPECTOR [employer] EMISSIONS Work Phone: [facility] 12-09-2022 15:17-0400 Body weight 71.67 kg NA Palomares PA-C Work Phone: [facility] 12-09-2022 15:17-0400 Diastolic blood pressure 80 mm[Hg] NA Palomares PA-C Work Phone: [facility] 12-09-2022 15:17-0400 Heart rate 72 /min NA Palomares PA-C Work Phone: [facility] 12-09-2022 15:17-0400 Respiratory rate 18 /min NA Palomares PA-C Work Phone: [facility] 12-09-2022 15:17-0400 SaO2% (BldA) [Mass fraction] 96 % NA Palomares PA-C Work Phone: [facility] 12-09-2022 15:17-0400 Systolic blood pressure 128 mm[Hg] NA Palomares PA-C Work Phone: [facility] 10-20-2022 11:10-0400 Body weight 61.24 kg Jeniferluis Yeager APRN.CNM Work Phone: [facility] 10-20-2022 11:10-0400 Diastolic blood pressure 84 mm[Hg] Jeniferluis Yeager APRN.CNM Work Phone: [facility] 10-20-2022 11:10-0400 Systolic blood pressure 144 mm[Hg] Jenifer Toy MOON.CNM Work Phone: [facility] 10-14-2022 13:24-0400 Heart rate 75 /min Deloris Troy MD Work Phone: [facility] 10-14-2022 13:24-0400 Respiratory rate 16 /min Deloris Troy MD Work Phone: [facility] 10-14-2022 13:24-0400 SaO2% (BldA) [Mass fraction] 97 % Deloris Troy MD Work Phone: [facility] 09-16-2022 14:05-0400 Body weight 59.42 kg NA Palomares PA-C Work Phone: [facility] 09-16-2022 14:05-0400 Diastolic blood pressure 88 mm[Hg] NA Palomares PA-C Work Phone: [facility] 09-16-2022 14:05-0400 Heart rate 92 /min NA Palomares PA-C Work Phone: [facility] 09-16-2022 14:05-0400 Respiratory rate 18 /min NA Palomares PA-C Work Phone: [facility] 09-16-2022 14:05-0400 SaO2% (BldA) [Mass fraction] 99 % NA Palomares PA-C Work Phone: [facility] 09-16-2022 14:05-0400 Systolic blood pressure 170 mm[Hg] NA Palomares PA-C Work Phone: [facility] 08-26-2022 10:03-0500 Body temperature 97.81 [degF] Urvashi Dahlhausen ROBOTIC MACHINE OPERATOR.INSPECTOR EXHAUST EMISSIONS Work Phone: [facility] 08-26-2022 10:03-0500 Body weight 61.24 kg Urvashi Dahlhausen ROBOTIC MACHINE OPERATOR.INSPECTOR [employer]HA[employer] EMISSIONS Work Phone: [facility] 08-26-2022 10:03-0500 Diastolic blood pressure 96 mm[Hg] Urvashi Dahlhausen ROBOTIC MACHINE OPERATOR.INSPECTOR [employer]HA[employer] EMISSIONS Work Phone: [facility] 08-26-2022 10:03-0500 Heart rate 74 /min Urvashi Dahlhausen ROBOTIC MACHINE OPERATOR.INSPECTOR [employer]HA[employer] EMISSIONS Work Phone: [facility] 08-26-2022 10:03-0500 Respiratory rate 18 /min Urvashi Dahlhausen ROBOTIC MACHINE OPERATOR.INSPECTOR [employer]HA[employer] EMISSIONS Work Phone: [facility] 08-26-2022 10:03-0500 SaO2% (BldA) [Mass fraction] 97 % Urvashi Dahlhausen ROBOTIC MACHINE OPERATOR.INSPECTOR EXHA[employer] EMISSIONS Work Phone: [facility] 08-26-2022 10:03-0500 Systolic blood pressure 129 mm[Hg] Urvashi Dahlhausen ROBOTIC MACHINE OPERATOR.INSPECTOR [employer]HA[employer] EMISSIONS Work Phone: [facility] 08-16-2022 10:58-0500 Body weight 64.41 kg NA Palomares PA-C Work Phone: [facility] 08-16-2022 10:58-0500 Diastolic blood pressure 80 mm[Hg] NA Palomares PA-C Work Phone: [facility] 08-16-2022 10:58-0500 Heart rate 74 /min NA Palomares PA-C Work Phone: [facility] 08-16-2022 10:58-0500 Respiratory rate 18 /min NA Palomares PA-C Work Phone: [facility] 08-16-2022 10:58-0500 SaO2% (BldA) [Mass fraction] 97 % NA Palomares PA-C Work Phone: [facility] 08-16-2022 10:58-0500 Systolic blood pressure 148 mm[Hg] NA Palomares PA-C Work Phone: [facility] 06-03-2022 11:10-0500 Heart rate 80 /min Shira Powellfield ROBOTIC MACHINE OPERATOR.INSPECTOR EXHA[employer] EMISSIONS Work Phone: [facility] 06-03-2022 11:10-0500 Respiratory rate 16 /min Shira Powellfield ROBOTIC MACHINE OPERATOR.INSPECTOR EXHAUST EMISSIONS Work Phone: [facility] 06-03-2022 11:10-0500 SaO2% (BldA) [Mass fraction] 95 % Shira Powellfield ROBOTIC MACHINE OPERATOR.INSPECTOR [employer]HA[employer] EMISSIONS Work Phone: [facility] 05-25-2022 14:53-0500 Body weight 67.77 kg Jenifer Yeager ROBOTIC MACHINE OPERATOR.CNM Work Phone: [facility] 05-25-2022 14:53-0500 Diastolic blood pressure 64 mm[Hg] Jenifer Yeager ROBOTIC MACHINE OPERATOR.CNM Work Phone: [facility] 05-25-2022 14:53-0500 Systolic blood pressure 112 mm[Hg] Jenifer Yeager ROBOTIC MACHINE OPERATOR.CNM Work Phone: [facility] 05-14-2022 10:53-0500 Body weight 65.77 kg NA Palomares PA-C Work Phone: [facility] 05-14-2022 10:53-0500 Diastolic blood pressure 78 mm[Hg] NA Palomares PA-C Work Phone: [facility] 05-14-2022 10:53-0500 Heart rate 93 /min NA Palomares PA-C Work Phone: [facility] 05-14-2022 10:53-0500 SaO2% (BldA) [Mass fraction] 97 % NA Palomares PA-C Work Phone: [facility] 05-14-2022 10:53-0500 Systolic blood pressure 148 mm[Hg] NA Palomares PA-C Work Phone: [facility] 05-07-2022 14:35-0500 Body temperature 97.81 [degF] Memo Leahy Jr., MD Work Phone: [facility] 05-07-2022 14:35-0500 Body weight 68.04 kg Memo Leahy Jr., MD Work Phone: [facility] 05-07-2022 14:35-0500 Diastolic blood pressure 62 mm[Hg] Memo Leahy Jr., MD Work Phone: [facility] 05-07-2022 14:35-0500 Heart rate 80 /min Memo Leahy Jr., MD Work Phone: [facility] 05-07-2022 14:35-0500 Respiratory rate 18 /min Memo Leahy Jr., MD Work Phone: [facility] 05-07-2022 14:35-0500 SaO2% (BldA) [Mass fraction] 97 % Memo Leahy Jr., MD Work Phone: [facility] 05-07-2022 14:35-0500 Systolic blood pressure 118 mm[Hg] Memo Leahy Jr., MD Work Phone: [facility] 04-01-2022 08:34-0400 Body weight 73.48 kg NA Palomares PA-C Work Phone: [facility] 04-01-2022 08:34-0400 Diastolic blood pressure 78 mm[Hg] NA Palomares PA-C Work Phone: [facility] 04-01-2022 08:34-0400 Heart rate 69 /min NA Palomares PA-C Work Phone: [facility] 04-01-2022 08:34-0400 Respiratory rate 20 /min NA Palomares PA-C Work Phone: [facility] 04-01-2022 08:34-0400 SaO2% (BldA) [Mass fraction] 96 % NA Palomares PA-C Work Phone: [facility] 04-01-2022 08:34-0400 Systolic blood pressure 128 mm[Hg] NA Palomares PA-C Work Phone: [facility] 03-17-2022 10:57-0400 Body height 175.3 cm Sarahi Whitlock MD Work Phone: [facility] 03-17-2022 10:57-0400 Body weight 74.39 kg Saraih Whitlock MD Work Phone: [facility] 03-17-2022 10:57-0400 Diastolic blood pressure 84 mm[Hg] Sarahi Whitlock MD Work Phone: [facility] 03-17-2022 10:57-0400 Heart rate 60 /min Sarahi Whitlock MD Work Phone: [facility] 03-17-2022 10:57-0400 Systolic blood pressure 122 mm[Hg] Sarahi Whitlock MD Work Phone: [facility] 02-25-2022 14:25-0400 Body temperature 98.6 [degF] NA Palomares PA-C Work Phone: [facility] 02-25-2022 14:25-0400 Body weight 74.39 kg NA Palomares PA-C Work Phone: [facility] 02-25-2022 14:25-0400 Diastolic blood pressure 72 mm[Hg] NA Palomares PA-C Work Phone: [facility] 02-25-2022 14:25-0400 Heart rate 90 /min NA Palomares PA-C Work Phone: [facility] 02-25-2022 14:25-0400 Respiratory rate 16 /min NA Palomares PA-C Work Phone: [facility] 02-25-2022 14:25-0400 SaO2% (BldA) [Mass fraction] 96 % NA Palomares PA-C Work Phone: [facility] 02-25-2022 14:25-0400 Systolic blood pressure 110 mm[Hg] NA Palomares PA-C Work Phone: [facility] 02-24-2022 10:45-0400 Diastolic blood pressure 61 mm[Hg] Deloris Troy MD Work Phone: [facility] 02-24-2022 10:45-0400 Systolic blood pressure 87 mm[Hg] Deloris Troy MD Work Phone: [facility] 02-24-2022 10:28-0400 Body temperature 99.19 [degF] Deloris Troy MD Work Phone: [facility] 02-24-2022 10:28-0400 Respiratory rate 16 /min Deloris Troy MD Work Phone: [facility] 02-24-2022 10:28-0400 SaO2% (BldA) [Mass fraction] 97 % Deloris Troy MD Work Phone: [facility] 02-24-2022 09:41-0400 Heart rate 98 /min Deloris Troy MD Work Phone: [facility] 02-11-2022 13:19-0400 Diastolic blood pressure 64 mm[Hg] NA Palomares PA-C Work Phone: [facility] 02-11-2022 13:19-0400 Systolic blood pressure 100 mm[Hg] NA Palomares PA-C Work Phone: [facility] 02-11-2022 10:06-0400 Body weight 75.3 kg NA Palomares PA-C Work Phone: [facility] 01-18-2022 11:10-0400 Body weight 80.29 kg Nguyen Tree ROBOTIC MACHINE OPERATOR.INSPECTOR EXHAUST EMISSIONS Work Phone: [facility] 01-18-2022 11:10-0400 Diastolic blood pressure 78 mm[Hg] Nguyen Edwards ROBOTIC MACHINE OPERATOR.INSPECTOR EXHAUST EMISSIONS Work Phone: [facility] 01-18-2022 11:10-0400 Systolic blood pressure 112 mm[Hg] Nguyen Edwards ROBOTIC MACHINE OPERATOR.INSPECTOR EXHAUST EMISSIONS Work Phone: [facility] 12-15-2021 08:23-0400 Diastolic blood pressure 82 mm[Hg] Blaine Ann MD Work Phone: [facility] 12-15-2021 08:23-0400 Heart rate 75 /min Blaine Ann MD Work Phone: [facility] 12-15-2021 08:23-0400 SaO2% (BldA) [Mass fraction] 96 % Blaine Ann MD Work Phone: [facility] 12-15-2021 08:23-0400 Systolic blood pressure 134 mm[Hg] Blaine Ann MD Work Phone: [facility] 12-07-2021 11:32-0400 Body height 175.3 cm Denice Gr ROBOTIC MACHINE OPERATOR.INSPECTOR EXHAUST EMISSIONS Work Phone: [facility] 12-07-2021 11:32-0400 Body weight 83.92 kg Denice Gr ROBOTIC MACHINE OPERATOR.INSPECTOR EXHAUST EMISSIONS Work Phone: [facility] 11-27-2021 15:05-0400 Diastolic blood pressure 87 mm[Hg] Josué Blevins MD Work Phone: [facility] 11-27-2021 15:05-0400 Heart rate 72 /min Josué Blevins MD Work Phone: [facility] 11-27-2021 15:05-0400 Respiratory rate 16 /min Josué Blevins MD Work Phone: [facility] 11-27-2021 15:05-0400 SaO2% (BldA) [Mass fraction] 94 % Josué Blevins MD Work Phone: [facility] 11-27-2021 15:05-0400 Systolic blood pressure 127 mm[Hg] Josué Blevins MD Work Phone: [facility] 11-27-2021 14:48-0400 Body temperature 98.01 [degF] Josué Blevins MD Work Phone: [facility] 11-27-2021 14:19-0400 Body height 175.3 cm Josué Blevins MD Work Phone: [facility] 11-27-2021 14:19-0400 Body weight 83.92 kg Josué Blevins MD Work Phone: [facility] 11-23-2021 09:17-0400 Body height 175.3 cm Josué Blevins MD Work Phone: [facility] 11-23-2021 09:17-0400 Body weight 83.92 kg Josué Blevins MD Work Phone: [facility] 11-23-2021 09:17-0400 Diastolic blood pressure 78 mm[Hg] Josué Blevins MD Work Phone: [facility] 11-23-2021 09:17-0400 Heart rate 79 /min Josué Blevins MD Work Phone: [facility] 11-23-2021 09:17-0400 Systolic blood pressure 108 mm[Hg] Josué Blevins MD Work Phone: [facility] 11-12-2021 14:13-0400 Body weight 85.73 kg NA Palomares PA-C Work Phone: [facility] 11-12-2021 14:13-0400 Diastolic blood pressure 70 mm[Hg] NA Palomares PA-C Work Phone: [facility] 11-12-2021 14:13-0400 Heart rate 74 /min NA Palomares PA-C Work Phone: [facility] 11-12-2021 14:13-0400 Respiratory rate 16 /min NA Palomares PA-C Work Phone: [facility] 11-12-2021 14:13-0400 SaO2% (BldA) [Mass fraction] 94 % NA Palomares PA-C Work Phone: [facility] 11-12-2021 14:13-0400 Systolic blood pressure 112 mm[Hg] NA Palomares PA-C Work Phone: [facility] Encounters Encounter Date Encounter Type Care Provider Facility Start: 06-08-2023 End: 06-09-2023 ambulatory [facility] Facility:[facility] Start: 05-25-2023 Telephone encounter Greg Martino MD Work Phone: [facility] [place] Procedures Date Procedure Procedure Detail Performing Clinician Start: 01-26-2023 Mri brain brain stem w/o contrast material Urvashi Vergaracandido ROBOTIC MACHINE OPERATOR.INSPECTOR [employer]HA[employer] EMISSIONS Work Phone: Start: 09-01-2022 Us breast uni real t juju with image limited Memo Huber MD Work Phone: Start: 09-01-2022 End: 09-01-2022 Mammography Memo Huber MD Work Phone: Start: 04-01-2022 INFLUENZA VACCINE QUADRIVALENT 6 MO - 64 YRS IM M Cici Palomares PA-C Work Phone: Start: 04-01-2022 PFIZER-BIONTTIKI.VN COVI D-19 BIVALENT BOOSTER VACCINE, AGE 12+ [...] Josué Blevins MD Work Phone: Start: 11-12-2021 [employer]-Apps4ProNTTIKI.VN COVI D-19 VACCINE, AGE 12+ YR (THORNTON [...] Work Phone: Start: 10-02-2014 Colonoscopy Denice darling APRN.INSPECTOR [employer]HA[employer] EMISSIONS Work Phone: Plan of Treatment Date Care Activity Detail Author Start: 11-13-2031 Urine microalbumin profile [facility] Start: 11-27-2026 Colonoscopy COLONOSCOPY [facility] Start: 11-27-2026 COLORECTAL CANCER SCREENING COLORECTAL CANCER SCREENING [facility] Start: 10-20-2025 DIABETES SCREEN DIABETES SCREEN [facility] Start: 10-20-2025 Diabetes Screening Diabetes Screenin g [facility] Start: 03-09-2025 DIABETES SCREEN DIABETES SCREEN [facility] Start: 11-12-2024 DIABETES SCREEN DIABETES SCREEN [facility] Start: 05-10-2024 Annual PCP Team Impact Hammer Operator pari Disease Visit Annual PCP Team Chronic Disease Visit [facility] Start: 05-10-2024 BP Controlled (<130/80) BP Controlle d (<130/80) [facility] Start: 02-14-2024 Lipid 1996 panel - S cintia or Plasma Lipid Screening [facility] Start: 02-14-2024 LIPID SCREEN LIPID SCREEN [facility] Start: 02-10-2024 BP CONTROLLED (<130/80) BP CONTROLLE D (<130/80) [facility] Start: 01-05-2024 ANNUAL PCP TEAM CHECKING CLERK PARI DISEASE VISIT ANNUAL PCP TEAM CHRONIC DISEASE VISIT [facility] Start: 12-10-2023 ANNUAL PCP TEAM CHECKING CLERK PARI DISEASE VISIT ANNUAL PCP TEAM CHRONIC DISEASE VISIT [facility] Start: 11-09-2023 ANNUAL PCP TEAM CHECKING CLERK PARI DISEASE VISIT ANNUAL PCP TEAM CHRONIC DISEASE VISIT [facility] Start: 09-17-2023 ANNUAL PCP TEAM CHECKING CLERK PARI DISEASE VISIT ANNUAL PCP TEAM CHRONIC DISEASE VISIT [facility] Start: 09-02-2023 Mammography [facility] Start: 08-16-2023 ANNUAL PCP TEAM CHECKING CLERK PARI DISEASE VISIT ANNUAL PCP TEAM CHRONIC DISEASE VISIT [facility] Start: 07-29-2023 ANNUAL PCP TEAM CHECKING CLERK PARI DISEASE VISIT ANNUAL PCP TEAM CHRONIC DISEASE VISIT [facility] Start: 07-29-2023 BP CONTROLLED (<130/80) BP CONTROLLE D (<130/80) [facility] Start: 05-26-2023 Influenza vaccination LUNG CANCER SC REENING [facility] Start: 05-25-2023 BP CONTROLLED (<130/80) BP CONTROLLE D (<130/80) [facility] Start: 05-14-2023 ANNUAL PCP TEAM CHECKING CLERK PARI DISEASE VISIT ANNUAL PCP TEAM CHRONIC DISEASE VISIT [facility] Start: 05-07-2023 BP CONTROLLED (<130/80) BP CONTROLLE D (<130/80) [facility] Start: 04-01-2023 ANNUAL PCP TEAM CHECKING CLERK PARI DISEASE VISIT ANNUAL PCP TEAM CHRONIC DISEASE VISIT [facility] Start: 04-01-2023 BP CONTROLLED (<130/80) BP CONTROLLE D (<130/80) [facility] Start: 04-01-2023 SHINGRIX VACCINE (2 of 2) ULLOA GRIX VACCINE (2 of 2) [facility] Immunizations Immunization Date Immunization Notes Care Provider Ruth moses 04-01-2022 COVID-19 booster vaccine, age 12+ yr, bivalent (PFIZER-[id number].VN) NA Jelani SHIN Work Phone: [facility] 04-01-2022 influenza, injectabl e, quadrivalent, contains preservative ASHLEY Palomares PA-C Work Phone: [facility] 04-01-2022 influenza virus vacc ine, unspecified formulation NA Palomares PA-C Work Phone: [facility] 11-12-2021 pneumococcal Conjuga te, unspecified formulation NA Palomares PA-C Work Phone: [place] Work Phone: 11-12-2021 COVID-19 vaccine, ag e 12+ yr ([employer] - [facility]) NA Palomares PA-C Work Phone: [facility] 11-12-2021 pneumococcal (PCV20) vaccine, 20 valent (PREVNAR 20) NA Palomares PA-C Work Phone: [facility] 11-12-2021 tetanus toxoid, redu ricky diphtheria toxoid, and acellular pertussis vaccine, adsorbed NA Palomares PA-C Work Phone: [facility] 11-12-2021 zoster vaccine recombinant NA Palomares PA-C Work Phone: [facility] 01-23-2021 COVID-19 vaccine (LEROY) NA Palomares PA-C Work Phone: [facility] 05-09-2019 influenza, seasonal, injectable NA Palomares PA-C Work Phone: [facility] 03-13-2018 influenza, injectabl e, quadrivalent, contains preservative NA Palomares PA-C Work Phone: [facility] Work Phone: 05-05-2017 influenza, injectabl e, quadrivalent, contains preservative NA Palomares PA-C Work Phone: [facility] Work Phone: 04-30-2016 influenza, seasonal, injectable, preservative free NA Palomares PA-C Work Phone: [facility] 02-27-2016 influenza, injectabl e, quadrivalent, contains preservative NA Palomares PA-C Work Phone: [facility] 02-26-2016 influenza, seasonal, injectable NA Palomares PA-C Work Phone: [facility] 06-04-2015 influenza, injectabl e, quadrivalent, contains preservative NA Palomares PA-C Work Phone: [facility] 06-04-2015 influenza, seasonal, injectable NA Palomares PA-C Work Phone: [facility] 06-03-2014 influenza, seasonal, injectable NA Palomares PA-C Work Phone: [facility] Work Phone: 05-02-2014 pneumococcal polysaccharide vaccine, 23 valent NA Palomares PA-C Work Phone: [facility] Work Phone: 06-20-2006 TD(adult) unspecifie d formulation NA Palomares PA-C Work Phone: [facility] [facility] 06-20-2006 tetanus and diphther ia toxoids, adsorbed, preservative free, for adult use (2 Lf of tetanus toxoid and 2 Lf of diphtheria toxoid) NA Palomares PA-C Work Phone: [facility] Payers Date Payer Category Payer Medicaid [id number] 2013 Medicaid [facility] MEDIC AID [facility] MEDICAID [id number] 2013-Present [phone] [address] [place] [address] Medicaid [id number] 2013 Medicaid [id number] 2013 Unknown [id number] 1968 Unknown [id number] Social History Date Type Detail Facility Start: 10-14-2016 End: 10-14-2022 Tobacco smoking status MDIS Smokes tobacco daily [facility] History of tobacco use Cigarette Smoker C [facility] Start: 10-14-2016 End: 07-02-2022 Cigarettes smoked current (pack per day) - Reported 0.75 [facility] Start: 10-14-2016 End: 10-14-2022 Tobacco use and exposure Smokeless tobacco non-user [facility] Start: 06-18-2021 End: 08-27-2021 Alcohol intake Current drinker of alcohol (finding) [facility] Start: 07-23-2021 History SDOH Alcohol Frequency 1 [facility] Start: 07-23-2021 History SDOH Alcohol Std Drinks 5 [facility] Start: 07-23-2021 History SDOH Social Connections Get Together 2 [facility] Start: 07-23-2021 History SDOH Social Connections Meetings 3 [facility] Start: 07-23-2021 History SDOH Stress 4 [facility] Start: 09-29-2015 End: 02-11-2022 Tobacco Comment started smoking 12yr .5 to .75 of pack daily-in process of quitting as of 09/29/15 [facility] Start: 1970 Sex Assigned At Female [facility] Start: 08-17-2021 End: 05-07-2022 Exposure to SARS-CoV-2 (event) Not sure [facility] Start: 11-23-2021 End: 05-10-2023 Alcohol intake Ex-drinker (finding) [facility] Start: 02-20-2022 End: 03-02-2022 Exposure to SARS-CoV-2 (event) Unable to assess [facility] Start: 07-29-2022 Tobacco Comment started smoking 12yr, 3 cigs daily [facility] Start: 07-23-2021 End: 07-02-2022 Social connection and isolation panel [facility] Frequency of Communication with Friends and Family Not on file [facility] Work Phone: Do you belong to any clubs or organizations such as scientologist groups, unions, fraternal or athletic groups, or school groups? Yes [facility] Are you now , , , , never or living with a partner? [facility] How often to you hav e a drink containing alcohol? Never [facility] How many standard dr inks containing alcohol do you have on a typical day? 10 or more [facility] How hard is it for y ou to pay for the very basics like food, housing, medical care, and heating [facility] Do you feel stress - tense, restless, nervous, or anxious, or unable to sleep at night because your mind is troubled all the time - these days [OSQ] Rather much [facility] (I/We) worried wheth er (my/our) food would run out before (I/we) got money to buy more. Sometimes true [facility] The food that (I/we) bought just didn't last, and (I/we) didn't have money to get more. Never true [facility] At any time in the p ast 12 months, were you homeless or living in correction [including now]? No [facility] Start: 03-05-2021 Gender identity Identifies as female gender (finding) [facility] Start: 03-05-2021 Sexual orientation Heterosexual (finding) [facility] Clinical Notes 05-02-2021 to 06-08-2023 Telephone Encounter - Agustina Guillen Ma - 05/25/2023 9:51 AM ESTTelephone Encounter - Flo Martino MD - 05/25/2023 9:38 AM Flo Reyna MD - 05/10/2023 11:12 AM EST Note Date & Type Note Facility 06-08-2023 Note HNO ID: [id number] Author: Liliam Rowell APRN.[employer] Service: ? Author Type: Nurse Practitioner Type: Progress Notes Filed: 06/08/2023 1:03 PM Note Text: This is a 53 year old female who presents today with: Patient presents with: detention follow up: zaki EVANGELISTA 06/06; transferred from [facility] HISTORY OF PRESENT ILLNESS: Mariluz Garcia is a 53 year old female. Patient presents with: detention follow up: zaki EVANGELISTA 06/06; transferred from [facility] Pt presents today for hospital/detention follow-up. Went to the hospital d/t arms and legs stopped working. Called squad to go to the ER. 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 Had C3-C5 ACDF on 05/18. Did well after surgery. Went to [facility] on 05/23 for additional rehab. Discharged from [...] on her discharge medication list. Nursing called detention and verified that patient is taking metoprolol [...] care 05/15/2020 HOSPITAL/ER FOLLOW UP Which facility: [facility] Dates of visit: 05/10-05/13/2020 Preadmission evaluation: ER [...] of admission 05/01/2021 Date of discharge: Facility: [facility] 05/01/2021 presented to the emergency room with acute alcohol intoxication, initial alcohol level 7-8. Acknowledges over the last 5 months drinking 15 packs a day at 8% alcohol (joseaidan garciaalfa). Vital signs 96.6 F-78-18-111/73-98%. Appearance was no acute distress. WBC 7.9-Hgb 13.8-HCT 39 Encounter for support and coordination of transition of care 05/05/2022 05/05/2022 patient called squad, transported to [facility] with lightheadedness and multiple syncopal episodes one [...] Sig ibuprofen (MOT (more content not included)... [facility] 05-26-2023 Note HNO ID: [id number] Author: Rima Espinal PTA Service: ? Author Type: Steel Layer Type: Progress Notes Filed: 05/26/2023 4:36 PM Note Text: 05/26/2023 [facility] PHYSICAL [...] scheduled additional follow-up appointments. Rima Espinal PTA [facility] 05-25-2023 Miscellaneous Notes Patient notified and in nursing facility at this time Agustina Guillen Ma Patient's MRI of the cervical spine ordered by our office has not been approved by her insurance. It appears she had MRI of cervical spine at [facility] on 05/16 and was hospitalized after a fall. Will cancel our order. F/u with PCP team for hospital discharge. documented in this encounter [facility] 05-20-2023 Miscellaneous Notes Completed forms faxed Forms to providers desk to review and complete. Type of form: CMN/Incontinence Order Form from [facility] Form received via fax When form is completed, Fax form to [phone] Form has been forwarded to Provider Mailbox: ALEIDA Diane documented in this encounter [facility] 05-10-2023 Note HNO ID: [id number] Author: Flo Martino MD Service: ? Author Type: Physician Type: Progress Notes Filed: 05/11/2023 4:49 PM Note Text: Chief Complaint Patient presents with: ER F/U: Numbness and tingling in Bilateral hands HPI Mariluz Garcia is a 53 year old female who presents here today for ER Follow Up.. Patient evaluated at [facility] ED on 04/29 for complaint of tingling [...] care 05/15/2020 HOSPITAL/ER FOLLOW UP Which facility: [facility] Dates of visit: 05/10-05/13/2020 Preadmission evaluation: ER [...] of admission 05/01/2021 Date of discharge: Facility: [facility] 05/01/2021 presented to the emergency room with acute alcohol intoxication, initial alcohol level 7-8. Acknowledges over the last 5 months drinking 15 packs a day at 8% alcohol (natty dadalfa). Vital signs 96.6 F-78-18-111/73-98%. Appearance was no acute distress. WBC 7.9-Hgb 13.8-HCT 39 Encounter for support and coordination of transition of care 05/05/2022 05/05/2022 patient called squad, transported to [facility] with lightheadedness and multiple syncopal episodes one of them resulting in injury to her right foot. GERD (gastroesophageal reflux disease) Hyperglycemia Hypertension Lung abscess ([facility]) saw Néstor Li and Dr. Zarate. Major depression Mild protein-calorie malnutrition ([facility]) 08/26/2020 Obesity PE (pulmonary thromboembolism) ([facility]) PTSD (post-traumatic stress disorder) Snoring [...] daily. metoprolol succinate (more content not included)... [facility] 05-10-2023 History of Present illness Narrative Chief Complaint Patient presents with: ER F/U: Numbness and tingling in Bilateral hands HPI Mariluz Garcia is a 53 year old female who presents here today for ER Follow Up.. Patient evaluated at [facility] ED on 04/29 for complaint of tingling [...] care 05/15/2020 HOSPITAL/ER FOLLOW UP Which facility: [facility] Dates of visit: 05/10-05/13/2020 Preadmission evaluation: ER [...] of admission 05/01/2021 Date of discharge: Facility: [facility] 05/01/2021 presented to the emergency room with acute alcohol intoxication, initial alcohol level 7-8. Acknowledges over the last 5 months drinking 15 packs a day at 8% alcohol (marcin samaniego). Vital signs 96.6 F-78-18-111/73-98%. Appearance was no acute distress. WBC 7.9-Hgb 13.8-HCT 39 Encounter for support and coordination of transition of care 05/05/2022 05/05/2022 patient called squad, transported to [facility] with lightheadedness and multiple syncopal episodes one of them resulting in injury to her right foot. GERD (gastroesophageal reflux disease) Hyperglycemia Hypertension Lung abscess ([facility]) saw Néstor Li and Dr. Zarate. Major depression Mild protein-calorie malnutrition ([facility]) 08/26/2020 Obesity PE (pulmonary thromboembolism) ([facility]) PTSD (post-traumatic stress disorder) Snoring [...] joint swelling, deformity, or tenderness. Neurologic: 4/5 manager games strength bilaterally. 5/5 strength in arms. Decreased [...] Flo Martino MD documented in this encounter [facility] 03-11-2023 Note HNO ID: [id number] Author: Rima Espinal PTA Service: ? Author Type: Steel Layer Type: Progress Notes Filed: 03/11/2023 1:25 PM [...] on stairs Entered the pool assist level: [place], With rail Aquatic Therapy (20799): Walking, Lower Extremity, Stretching and Flexibility, Vertical / [place] - Buoyancy Supported Walking: Forward Walking, Lateral/ Side Stepping Water Turbulence: #1 Forward Walking: x5 Lateral/Side Stepping: x5 Lower Extremity: Hip Flexion, Hip Extension, Hip Abduction, Hip Circumduction Hip Flexion: 2x10 Hip Extension: 2x10 Hip Abduction: 2x10 Hip Circumduction: 5/5ea Vertical/[place] - Buoyancy Supported : Hip Abduction/ Adduction, [...] Stop Time : 1322 Rima Espinal PTA [facility] 03-11-2023 History of Present illness Narrative [...] on stairs Entered the pool assist level: [place], With rail Aquatic Therapy (10481): Walking, Lower Extremity, Stretching and Flexibility, Vertical / [place] - Buoyancy Supported Walking: Forward Walking, Lateral/ Side Stepping Water Turbulence: #1 Forward Walking: x5 Lateral/Side Stepping: x5 Lower Extremity: Hip Flexion, Hip Extension, Hip Abduction, Hip Circumduction Hip Flexion: 2x10 Hip Extension: 2x10 Hip Abduction: 2x10 Hip Circumduction: 5/5ea Vertical/[place] - Buoyancy Supported : Hip Abduction/ Adduction, [...] Rima Espinal PTA documented in this encounter [facility] 03-09-2023 Miscellaneous Notes Completed and faxed. Type of form: DME Form received via fax When form is completed, Fax form to [phone] Form has been forwarded to Physician Mailbox: Faustino Mascorro LPN documented in this encounter [facility] 02-28-2023 Miscellaneous Notes Last OV: 01/04/23 [...] Zoraida Garcia LPN documented in this encounter [facility] 02-16-2023 Note HNO ID: [id number] Author: Anay Esteban, PT Service: ? Author [...] up without use of hands on thighs [place] in home exercise program. Perform ADL's with decreased report of symptoms/pain in 6-8 weeks. Increased strength of (B) LE's by one full MMT grade or better Patient Goals: decreasde pain and improved function Planned Interventions, Frequency, and Duration: Current Frequency: 2x/week Duration: 8 weeks Total Number of Visits Planned: 16 Planned Treatment Interventions: Aquatic PT (01657), Therapeutic exercise (01091), Neuromuscular re-education (38090), Manual therapy (40375), Therapeutic activities (85202), Self-correction management (71912), Gait Training (51967), Group Therapy (34749) PLAN FOR NEXT VISIT: begin aquatic therapy Patient demonstrates good understanding of plan of care and treatment. The above goals and plan of care were discussed and agreed upon by patient/family. SUBJECTIVE: pain in the (R) hip and (L) leg. Pain shoots down the left leg. All was exacerbated from a fall last December. Hip is owwb-yg-cxoc. Patient Goals: decreasde pain and improved function [...] Education: Education Learni (more content not included)... [facility] 02-16-2023 History of Present illness Narrative [...] up without use of hands on thighs [place] in home exercise program. Perform ADL's with decreased report of symptoms/pain in 6-8 weeks. Increased strength of (B) LE's by one full MMT grade or better Patient Goals: decreasde pain and improved function Planned Interventions, Frequency, and Duration: Current Frequency: 2x/week Duration: 8 weeks Total Number of Visits Planned: 16 Planned Treatment Interventions: Aquatic PT (31602), Therapeutic exercise (18750), Neuromuscular re-education (02545), Manual therapy (30347), Therapeutic activities (06499), Self-correction management (02413), Gait Training (85605), Group Therapy (33799) PLAN FOR NEXT VISIT: begin aquatic therapy Patient demonstrates good understanding of plan of care and treatment. The above goals and plan of care were discussed and agreed upon by patient/family. SUBJECTIVE: pain in the (R) hip and (L) leg. Pain shoots down the left leg. All was exacerbated from a fall last December. Hip is puzq-dy-dpub. Patient Goals: decreasde pain and improved function [...] Anay Esteban PT documented in this encounter [facility] 02-14-2023 Note HNO ID: [id number] Author: Carmelita Ragsdale MD Service: ? Author [...] old premenopausal woman who presents to the [facility] [place] today for evaluation of breast pain. She [...] care 05/15/2020 HOSPITAL/ER FOLLOW UP Which facility: [facility] Dates of visit: 05/10-05/13/2020 Preadmission evaluation: ER [...] of admission 05/01/2021 Date of discharge: Facility: [facility] 05/01/2021 presented to the emergency room with acute alcohol intoxication, initial alcohol level 7-8. Acknowledges over the last 5 months drinking 15 packs a day at 8% alcohol (marcin samaniego). Vital signs 96.6 F-78-18-111/73-98%. Appearance was no acute distress. WBC 7.9-Hgb 13.8-HCT 39 Encounter for support and coordination of transition of care 05/05/2022 05/05/2022 patient called squad, transported to [facility] with lightheadedness and multiple syncopal episodes one of them resulting in injury to her right foot. GERD (gastroesophageal reflux disease) Hyperglycemia Hypertension Lung abscess (HCC) saw Néstor Li and Dr. Zarate. Major depression Mild protein-calorie malnutrition (HCC) 08/26/2020 Obesity PE (pulmonary thromboembolism) ([facility]) PTSD (post-traumatic stress disorder) Snoring [...] NRV CARPAL T (more content not included)... [facility] 02-14-2023 Instructions Agustina Brown PA-C - 02/14/2023 11:18 AM EDT Patient to call [phone] for appointment with genetics. documented in this encounter [facility] 02-14-2023 History of Present illness Narrative [...] old premenopausal woman who presents to the [facility] for evaluation of breast pain. She reports [...] care 05/15/2020 HOSPITAL/ER FOLLOW UP Which facility: [facility] Dates of visit: 05/10-05/13/2020 Preadmission evaluation: ER [...] of admission 05/01/2021 Date of discharge: Facility: [facility] 05/01/2021 presented to the emergency room with acute alcohol intoxication, initial alcohol level 7-8. Acknowledges over the last 5 months drinking 15 packs a day at 8% alcohol (natty daddy). Vital signs 96.6 F-78-18-111/73-98%. Appearance was no acute distress. WBC 7.9-Hgb 13.8-HCT 39 Encounter for support and coordination of transition of care 05/05/2022 05/05/2022 patient called squad, transported to [facility] with lightheadedness and multiple syncopal episodes one of them resulting in injury to her right foot. GERD (gastroesophageal reflux disease) Hyperglycemia Hypertension Lung abscess ([facility]) saw Néstor Li and Dr. Zarate. Major depression Mild protein-calorie malnutrition ([facility]) 08/26/2020 Obesity PE (pulmonary thromboembolism) ([facility]) PTSD (post-traumatic stress disorder) Snoring [...] which included preparing to see the patient, xcta-ln-xefz patient care, completing clinical documentation, obtaining and/or reviewing separately obtained history, performing a medically appropriate examination, counseling and educating the patient/family/caregiver, ordering medications, tests, or procedures, communicating with other HCPs (not separately reported), independently interpreting results (not separately reported), communicating results to the patient/family/caregiver, and care coordination (not separately reported). Carmelita Ragsdale MD Medical Breast Specialist February 14, 2023 CC: Jenifer Yeager [address] [facility] [address] [address] [place] [address] documented in this encounter [facility] 02-14-2023 Miscellaneous Notes TC to pt who voiced understanding. Of results below. Jenifer Ngo LPN ----- Message from Urvashi Hughes APRN.[employer] sent at 02/14/2023 7:30 AM EDT ----- EEG is normal and does not show any evidence of seizure activity. documented in this encounter [facility] 02-09-2023 Note HNO ID: [id number] Author: Ibeth Albert PA-C Service: ? Author Type: Physician Shoe Treer Type: Progress Notes Filed: 02/09/2023 11:04 AM Note Text: [facility] [address] [place] [address] 02/09/2023 ASSESSMENT AND PLAN: Assessment : Encounter [...] back in 2012 or 2013 outside of [facility]. She has had intermittent LEFT lower extremity radiating symptoms ever since. She had a lumbar MRI scan completed in May 2021 but she feels that her symptoms have changed and worsened since then. She has been treated by Dr. Ulloa and Allie Spap for pain management in 2018 and had [...] today with this patient visit. This includes zahp-dp-vobo time, review of chart records regarding conservative care history, spine-pertinent imaging, and communication/care coordination with referring provider, problem-specific history-taking and counseling/education regarding treatment options. cc: Jaimee Palomares [address] [facility] [place] [address] Results of consultation to be transmitted via electronic medical record for those providers who practice within [facility] or with access to [employer] via MD Connect, or via letter. ################################# ################################# ###### CHIEF COMPLAINT: Lower back pain HPI: see Discussion above History of bowel or bladder dysfunction (not IBS or constipation): Yes, urgency and incontinence. (more content not included)... [facility] 02-07-2023 Miscellaneous Notes Pharmacy requesting refill of [...] Fadumo Romero RN documented in this encounter [facility] 02-02-2023 Miscellaneous Notes I called patient regarding her upcoming new patient appointment on 02/14/[address] Ragsdale. She was referred by her WIRE ANNEALER Jenifer Yeager APRN. CNP for dense breasts [...] Bria Burton MA documented in this encounter [facility] 01-31-2023 Miscellaneous Notes In review of patient chart, all below have been scheduled. Nothing further at this time. BETTY Fernandez TC to patient who verbalized understanding of providers message below with no questions at this time. Patient is asking that a manufacturing scheduler contact her to assist with rescheduling her cancelled EEG as well as to set her up with the ordered Neuropsychological Testing ordered at [facility]. Please contact patient and assist with above. Thank you!. BETTY Fernandez ----- Message from Urvashi Hughes APRN.[employer] sent at 01/27/2023 7:44 AM EDT ----- Please let pt know her MRI of the brain does not show any new changes or concerns. Results are unchanged since her previous image in 03/2022. No findings to explain her recent symptoms. documented in this encounter [facility] 01-31-2023 Miscellaneous Notes Patient has been [...] mouth once daily. Please review and advise. Faudmo Castañeda documented in this encounter [facility] 01-28-2023 Miscellaneous Notes Refill request: Requested [...] Fadumo Romero RN documented in this encounter [facility] 01-26-2023 Note HNO ID: [id number] Author: Bharti Gant RT(R) Service: ? Author [...] RT Benson(R) January 26, 2023 11:39 AM [facility] 01-26-2023 History of Present illness Narrative Radiology [...] 2023 11:39 AM documented in this encounter [facility] 01-14-2023 Miscellaneous Notes Letter written. Does she need to cancel her injection in [place] on 01/19? Deloris Troy III, [place], [place] Patient has called in asking for a release of care from our office as she will be going to a different Pain Management. She will also be going to the [place] office on to fill out the medical records release form. Please advise. Laura Villegas documented in this encounter [facility] 01-06-2023 Miscellaneous Notes Patient has been [...] Hanna Mares RN documented in this encounter [facility] 01-05-2023 Miscellaneous Notes I don't have [...] Sruthi Piña LPM documented in this encounter [facility] 01-04-2023 Note HNO ID: [id number] Author: Jaimee Palomares PA-C Service: ? Author Type: Physician Shoe Treer Type: Progress Notes Filed: 01/05/2023 1:49 PM Note Text: 52 year old female with c/o ER hospital follow-up 12/29/2022 presented to [facility] emergency department with complaint of diffuse headache, [...] care 05/15/2020 HOSPITAL/ER FOLLOW UP Which facility: [facility] Dates of visit: 05/10-05/13/2020 Preadmission evaluation: ER [...] of admission 05/01/2021 Date of discharge: Facility: [facility] 05/01/2021 presented to the emergency room with acute alcohol intoxication, initial alcohol level 7-8. Acknowledges over the last 5 months drinking 15 packs a day at 8% alcohol (marcin samaniego). Vital signs 96.6 F-78-18-111/73-98%. Appearance was no acute distress. WBC 7.9-Hgb 13.8-HCT 39 Encounter for support and coordination of transition of care 05/05/2022 05/05/2022 patient called squad, transported to [facility] with lightheadedness and multiple syncopal episodes (more content not included)... [facility] 01-03-2023 Miscellaneous Notes Patient called requesting the following refill. Requested Prescriptions Pending Prescriptions Disp Refills oxybutynin ER (DITROPAN XL) 10 mg 24 hr tablet [Pharmacy Med Name: Oxybutynin Chloride ER 10MG TB24] 30 tablet 11 Sig: TAKE 1 TABLET BY MOUTH DAILY Patient last appointment: 11/05/2022 Patient Phone numbers: [phone] (home) Request is for script(s) to be escript to pharmacy. Vu Moura Ma documented in this encounter [facility] 12-23-2022 Miscellaneous Notes Patient has been [...] request does not meet the guidelines.Guidelines used: [place] Administrative Code Rule 5160-4-12 Immunizations, injections and infusions (including trigger-point injections), skin substitutes, and provider-administered pharmaceuticals; [place] Administrative Code 5160-1-01; [facility] Trigger Point Injections (MM-0011) Date of Service 01/13/23 Is Peer to Peer Available? (Instructions below) Yes Peer to Peer Deadline Until (5 business days) Appeal Deadline (Instructions below) 180 calendars days from 12/18/22 Insurance Case Information Insurance Name Jv Patient's Insurance Case# [id number] Ordering Provider DELORIS TROY Approved Services Denied Services 79470 (CPT ) - TRIGGER POINT INJECTION MULTI 3+ MUSCLE GRP Alternative Recommendation N/A *Service which can be approved in place of denied service. Clinical Documentation Provided Peer to Peer Instructions Peer to Peer opt 1 Does Peer to Peer need to be scheduled? Yes, by leaving a voice mail requesting a call back. Who can complete the Peer to Peer? Dr, PA, COAL BRIQUETTE MACHINE OPERATOR, LN Additional Peer to Peer Instructions You [...] required for appeal submission. Facility Information Location [facility] [id number] Tax ID# [id number] documented in this encounter [facility] 12-16-2022 Miscellaneous Notes No Show Documentation [...] 2022 2:28 PM documented in this encounter [facility] 12-16-2022 Note HNO ID: [id number] Author: Urvashi Hughes APRN.CNP Service: ? Author Type: Nurse Practitioner Type: Progress Notes Filed: 12/16/2022 1:17 PM Note Text: [facility] [place] Follow-up Visit Follow-up note December 16, 2022 [...] Words, up to 2 trials: Face, Velvet, Yazidism, Yudith, Red (no points) 5/5 first try, [...] 1 error) (06/20) Serial subtraction by 7: [id number] (3 points for correct 4 or 5; 2 points for 2 or 3 correct; 1 point for 1 correct) [id number] (/) Language: repeat: I only know that [...] (2/2) Delayed recall: recall words: face, velvet, scientologist, yudith, red (0-5) (4/5) Orientation: date(1), month(1), [...] DDD (degenerative di (more content not included)... [facility] 12-16-2022 History of Present illness Narrative Images from the original note were not included. [facility] [place] Follow-up Visit Follow-up note December 16, 2022 [...] Words, up to 2 trials: Face, Velvet, Yazidism, Yudith, Red (no points) 5/5 first try, [...] 1 error) (06/20) Serial subtraction by 7: [id number] (3 points for correct 4 or 5; 2 points for 2 or 3 correct; 1 point for 1 correct) 369-20-18-79-71-66 (3/3) Language: repeat: I only know that [...] (2/2) Delayed recall: recall words: face, velvet, scientologist, yudith, red (0-5) (5) Orientation: date(1), month(1), [...] care 05/15/2020 HOSPITAL/ER FOLLOW UP Which facility: [facility] Dates of visit: 05/10-05/13/2020 Preadmission evaluation: ER [...] of admission 05/01/2021 Date of discharge: Facility: [facility] 05/01/2021 presented to the emergency room with acute alcohol intoxication, initial alcohol level 7-8. Acknowledges over the last 5 months drinking 15 packs a day at 8% alcohol (natty daddy). Vital signs 96.6 F-78-18-111/73-98%. Appearance was no acute distress. WBC 7.9-Hgb 13.8-HCT 39 Encounter for support and coordination of transition of care 05/05/2022 05/05/2022 patient called squad, transported to [facility] with lightheadedness and multiple syncopal episodes one of them resulting in injury to her right foot. GERD (gastroesophageal reflux disease) Hyperglycemia Hypertension Lung abscess ([facility]) saw Néstor Li and Dr. Zarate. 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 documented in this encounter [facility] 12-10-2022 Miscellaneous Notes The following approved [...] to them. Pended. documented in this encounter [facility] 12-10-2022 Miscellaneous Notes Patient calls to request order for BP cuff be sent to [facility] Powell. Faxed per request to [phone]. Hanna Mares RN documented in this encounter [facility] 12-09-2022 Note HNO ID: [id number] Author: Jaimee Palomares PA-C Service: ? Author Type: Physician Shoe Treer Type: Progress Notes Filed: 12/09/2022 7:56 PM [...] care 05/15/2020 HOSPITAL/ER FOLLOW UP Which facility: [facility] Dates of visit: 05/10-05/13/2020 Preadmission evaluation: ER [...] of admission 05/01/2021 Date of discharge: Facility: [facility] 05/01/2021 presented to the emergency room with acute alcohol intoxication, initial alcohol level 7-8. Acknowledges over the last 5 months drinking 15 packs a day at 8% alcohol (marcin samaniego). Vital signs 96.6 F-78-18-111/73-98%. Appearance was no acute distress. WBC 7.9-Hgb 13.8-HCT 39 Encounter for support and coordination of transition of care 05/05/2022 05/05/2022 patient called squad, transported to [facility] with lightheadedness and multiple syncopal episodes one of them resulting in injury to her right foot. GERD (gastroesophageal reflux disease) Hyperglycemia Hypertension Lung abscess (H[facility]) saw Néstor Li and Dr. Zarate. Major depression Mild protein-calorie malnutrition (HCC) 08/26/2020 Obesity PE (pulmonary thromboembolism) ([facility]) PTSD (post-traumatic stress disorder) Snoring [...] Spondylosis Without Myel (more content not included)... [facility] 12-09-2022 History of Present illness Narrative 52 [...] care 05/15/2020 HOSPITAL/ER FOLLOW UP Which facility: [facility] Dates of visit: 05/10-05/13/2020 Preadmission evaluation: ER [...] of admission 05/01/2021 Date of discharge: Facility: [facility] 05/01/2021 presented to the emergency room with acute alcohol intoxication, initial alcohol level 7-8. Acknowledges over the last 5 months drinking 15 packs a day at 8% alcohol (marcin samaniego). Vital signs 96.6 F-78-18-111/73-98%. Appearance was no acute distress. WBC 7.9-Hgb 13.8-HCT 39 Encounter for support and coordination of transition of care 05/05/2022 05/05/2022 patient called squad, transported to [facility] with lightheadedness and multiple syncopal episodes one [...] Pain With Left-Sided Sciatica Pe (Pulmonary Thromboembolism) ([facility]) Hyperglycemia Stasis Edema Right Lumbar Radiculopathy Obesity, Class III, BMI >= 40 (morbid obesity) E66.01 Delusional Disorder ([facility]) Chronic Low Back Pain With Sciatica Abnormal Echocardiogram Chronic Left-Sided Low Back Pain With Sciatica Copd (Chronic Obstructive Pulmonary Disease) With Chronic Bronchitis ([facility]) Positive Urine Drug Screen Lumbar Spondylosis Cervical Spondylosis Without Myelopathy Other Chest Pain Stress Incontinence Chronic Active Hepatitis C ([facility]) History of Colonic Polyps Traumatic Closed Nondisp [...] Jaimee Palomares PA-C documented in this encounter [facility] 11-22-2022 Miscellaneous Notes Patient calling to say she was seen in [facility] ER today. She says she was given [...] 7. :NO Protocols used: Blood Pressure - Fzch-DPSIO-PW documented in this encounter [facility] 11-22-2022 Miscellaneous Notes Last OV: 11/08/22. [...] Zoraida Garcia LPN documented in this encounter [facility] 11-08-2022 Note HNO ID: [id number] Author: Jaimee Palomares PA-C Service: ? Author Type: Physician Shoe Treer Type: Progress Notes Filed: 11/08/2022 8:05 PM [...] care 05/15/2020 HOSPITAL/ER FOLLOW UP Which facility: [facility] Dates of visit: 05/10-05/13/2020 Preadmission evaluation: ER [...] of admission 05/01/2021 Date of discharge: Facility: [facility] 05/01/2021 presented to the emergency room with acute alcohol intoxication, initial alcohol level 7-8. Acknowledges over the last 5 months drinking 15 packs a day at 8% alcohol (marcin samaniego). Vital signs 96.6 F-78-18-111/73-98%. Appearance was no acute distress. WBC 7.9-Hgb 13.8-HCT 39 Encounter for support and coordination of transition of care 05/05/2022 05/05/2022 patient called [facility], transported to [facility] with lightheadedness and multiple syncopal episodes one [...] smoking 14yr, 3 (more content not included)... [facility] 10-26-2022 Miscellaneous Notes Patient has been identified [...] Maribell Baltazar LPN documented in this encounter [facility] 10-20-2022 Note HNO ID: [id number] Author: Jenifer Yeager APRN.AKOSUA Service: ? 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 Acknowledges over the last 5 months drinking 15 packs a day at 8% alcohol (marcin samaniego). Vital signs 96.6 F-78-18-111/73-98%. Appearance was no acute distress. WBC 7.9-Hgb 13.8-HCT 39 Encounter for support and coordination of transition of care 05/05/2022 05/05/2022 patient called squad, transported to [facility] with lightheadedness and multiple syncopal episodes one of them resulting in injury to her right foot. GERD (gastroesophageal reflux disease) Hyperglycemia Hypertension Lung abscess (HCC) saw Néstor Li and Dr. Zarate. Major depression Mild protein-calorie malnutrition (HCC) 08/26/2020 Obesity PE (pulmonary thromboembolism) ([facility]) PTSD (post-traumatic stress disorder) Snoring [...] 12/2013 bilateral posterior thigh autograft, fell in [place] TONSILLECTOMY AND ADENOIDECTOMY FAMILY HISTORY Problem Relation [...] 800 mg table (more content not included)... [facility] 10-20-2022 Instructions Jenifer Yeager APRN.[facility] - 10/20/2022 11:32 AM EDT Management of Benign Breast Pain / Fibrocystic Changes Decrease or avoid intake of caffeine, including coffee, teas, sodas, and chocolate. Decrease or avoid nicotine. Wear a support or sports (not underwire) bra. Take iqbb-xrq-imywjlr ibuprofen (Advil/Motrin) or other NSAIDs, such as naproxen (Aleve). Take 3 grams (3000 mg.) of evening primrose oil (available aoec-pst-uutlvvg) in divided doses for 2 months. Take [...] your health care provider. You cannot purchase gtvt-ytj-ebagodc products to treat BV. Products for douching [...] swelling, or soreness around the vagina Copyright 2980-8628 [employer]. All rights reserved. This information is provided by the [facility] and is not intended to replace the medical advice of your doctor or health care provider. Please consult your health care provider for advice about a specific medical condition. For additional written health information, please contact the Health Information Center at the [facility] or toll-free extension [phone] or visit [email or web address] 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 Acknowledges over the last 5 months drinking 15 packs a day at 8% alcohol (natty daddy). Vital signs 96.6 F-78-18-111/73-98%. Appearance was no acute distress. WBC 7.9-Hgb 13.8-HCT 39 Encounter for support and coordination of transition of care 05/05/2022 05/05/2022 patient called squad, transported to [facility] with lightheadedness and multiple syncopal episodes one [...] Jenifer Yeager APRN.CNM documented in this encounter [facility] 10-14-2022 Note HNO ID: [id number] Author: Shruthi Keita MA Service: ? Author Type: Environmental Research Project Manager Type: Progress Notes Filed: 10/14/2022 1:57 PM [...] and suicidal ideas. The patient is nervous/anxious. [facility] 10-14-2022 History of Present illness Narrative [...] not included. [facility] Name: Mariluz Garcia : 1970 Purpose: 2 [...] Therapy (Aquatic) - completed her course at [facility]. Completed since July. Studies Obtained: [...] This information is taken directly from the order selector system. 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 [place] at L4-L5. Mild straightening of usual lumbar [...] impingement of the distal cord within the oamzb-cz-ktoc. Paraspinal soft tissues: As above. No paraspinal [...] annulus, and facet degenerative change contributes to jwva-ti-snztlspn right foraminal narrowing. L4-L5: Disk bulging, loss [...] and assume there are 5 lumbar-type vertebrae. Ultimate Hoops Scoreboard Operator: CJ Transcribe Date/Time: Jun 05 2021 11:26A Dictated by : GIAT MALHOTRA MD This examination was interpreted and [...] holding to see if truly helping Functional Temple: Home Exercise Program under provider supervisions - [...] [place] [facility] [place] [facility] documented in this encounter [facility] 10-07-2022 Miscellaneous Notes Spoke with patient [...] call and advise. documented in this encounter [facility] 10-06-2022 Note HNO ID: [id number] Author: Deloris Troy MD Service: ? Author Type: Physician Type: Progress Notes Filed: 10/14/2022 1:57 PM Note Text: [facility] [place] [facility] Name: Mariluz Garcia : 1970 Purpose: [...] Therapy (Aquatic) - completed her course at [facility]. Completed since July. Studies Obtained: [...] This information is taken directly from the order selector system. 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 [place] at L4-L5. Mild straightening of usual lumbar lordosis and slightly kyphotic alignment at the level of L1 related to minimal old anterior wedging morphology of L1. Bone marrow signal/fracture: Advanced endplate degenerative change at L1-L2 through the L4 (more content not included)... [facility] 09-16-2022 Note HNO ID: [id number] Author: Jaimee Palomares PA-C Service: ? Author Type: Physician Shoe Treer Type: Progress Notes Filed: 09/16/2022 3:41 PM [...] Drug use 08/15/2018 ecstacy Emphysema of lung ([facility]) Encounter for support and coordination of transition of care 05/15/2020 HOSPITAL/ER FOLLOW UP Which facility: [facility] Dates of visit: 05/10-05/13/2020 Preadmission evaluation: ER [...] of admission 05/01/2021 Date of discharge: Facility: [facility] 05/01/2021 presented to the emergency room with acute alcohol intoxication, initial alcohol level 7-8. Acknowledges over the last 5 months drinking 15 packs a day at 8% alcohol (marcin samaniego). Vital signs 96.6 F-78-18-111/73-98%. Appearance was no acute distress. WBC 7.9-Hgb 13.8-HCT 39 Encounter for support and coordination of transition of care 05/05/2022 05/05/2022 patient called squad, transported to [facility] with lightheadedness and multiple syncopal episodes one of them resulting in injury to her right foot. GERD (gastroesophageal reflux disease) Hyperglycemia Hypertension Lung abscess ([facility]) saw Néstor Li and Dr. Zarate. Major depression Mild protein-calorie malnutrition ([facility]) 08/26/2020 Obesity PE (pulmonary thromboembolism) ([facility]) PTSD (post-traumatic stress disorder) Snoring [...] (Chronic Obstructive Pulm (more content not included)... [facility] 09-16-2022 History of Present illness Narrative 52 [...] Drug use 08/15/2018 ecstacy Emphysema of lung ([facility]) Encounter for support and coordination of transition of care 05/15/2020 HOSPITAL/ER FOLLOW UP Which facility: [facility] Dates of visit: 05/10-05/13/2020 Preadmission evaluation: ER [...] of admission 05/01/2021 Date of discharge: Facility: [facility] 05/01/2021 presented to the emergency room with acute alcohol intoxication, initial alcohol level 7-8. Acknowledges over the last 5 months drinking 15 packs a day at 8% alcohol (nataidan samaniego). Vital signs 96.6 F-78-18-111/73-98%. Appearance was no acute distress. WBC 7.9-Hgb 13.8-HCT 39 Encounter for support and coordination of transition of care 05/05/2022 05/05/2022 patient called squad, transported to [facility] with lightheadedness and multiple syncopal episodes one of them resulting in injury to her right foot. GERD (gastroesophageal reflux disease) Hyperglycemia Hypertension Lung abscess ([facility]) saw Néstor Li and Dr. [...] Jaimee Palomares PA-C documented in this encounter [facility] 09-01-2022 Miscellaneous Notes TC to pt, [...] let us know. documented in this encounter [facility] 09-01-2022 Note HNO ID: [id number] Author: Jenifer Escalante RDMS Service: ? Author Type: Adhesive Bonding Machine Operator Type: Progress Notes Filed: 09/01/2022 2:51 [...] RDMS RVT September 01, 2022 2:51 PM [facility] 09-01-2022 Note HNO ID: [id number] Author: LEONID MillerR) Service: ? Author Type: [...] RT Angela(R) September 01, 2022 1:58 PM [facility] 09-01-2022 History of Present illness Narrative Radiology [...] 2022 2:51 PM documented in this encounter [facility] 09-01-2022 History of Present illness Narrative [...] 2022 1:58 PM documented in this encounter [facility] 08-27-2022 Miscellaneous Notes Spoke to patient & advised provider just wanted to have a routine f/u in 3 months per her request & will decide if the 6 months appt at that time is necessary. Patient verbalized understanding of instructions. Scheduled with 11/25 @ 145PM. 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 Author Type: Nurse Practitioner Type: Progress Notes Filed: 08/26/2022 1:20 PM Note Text: [facility] [place] Follow-up Visit Follow-up note August 26, 2022 [...] day by day. Feels both short and retirement memory have changed. States she can remember [...] Words, up to 2 trials: Face, Velvet, Yazidism, Yudith, Red (no points) 3/5 first try, [...] 1 error) (0/1) Serial subtraction by 7: 269-64-05-79-72-65 (3 points for correct 4 or 5; 2 points for 2 or 3 correct; 1 point for 1 correct) [id number] (3/3) Language: repeat: I only know that [...] (2/2) Delayed recall: recall words: face, velvet, scientologist, yudith, red (0-5) (5/5) Orientation: date(1), month(1), [...] care 05/15/2020 HOSPITAL/ER FOLLOW UP Which facility: [facility] Dates of visit: 05/10-05/13/2020 Preadmission evaluation: ER with right-sided abdominal pain over 2-1/2 hours, 10 out of 10. Worse (more content not included)... [facility] 08-26-2022 History of Present illness Narrative Images from the original note were not included. [facility] [place] Follow-up Visit Follow-up note August 26, 2022 [...] day by day. Feels both short and retirement memory have changed. States she can remember [...] Words, up to 2 trials: Face, Velvet, Yazidism, Yudith, Red (no points) 3/5 first try, [...] 1 error) (0/1) Serial subtraction by 7: 250-30-92-79-72-65 (3 points for correct 4 or 5; 2 points for 2 or 3 correct; 1 point for 1 correct) [id number] (08/20) Language: repeat: I only know that [...] (2/2) Delayed recall: recall words: face, velvet, scientologist, yudith, red (0-5) (5/5) Orientation: date(1), month(1), [...] Drug use 08/15/2018 ecstacy Emphysema of lung ([facility]) Encounter for support and coordination of transition of care 05/15/2020 HOSPITAL/ER FOLLOW UP Which facility: [facility] Dates of visit: 05/10-05/13/2020 Preadmission evaluation: ER [...] of admission 05/01/2021 Date of discharge: Facility: [facility] 05/01/2021 presented to the emergency room with acute alcohol intoxication, initial alcohol level 7-8. Acknowledges over the last 5 months drinking 15 packs a day at 8% alcohol (natty daddy). Vital signs 96.6 F-78-18-111/73-98%. Appearance was no acute distress. WBC 7.9-Hgb 13.8-HCT 39 Encounter for support and coordination of transition of care 05/05/2022 05/05/2022 patient called squad, transported to [facility] with lightheadedness and multiple syncopal episodes one of them resulting in injury to her right foot. GERD (gastroesophageal reflux disease) Hyperglycemia Hypertension Lung abscess ([facility]) saw Néstor Li and Dr. Zarate. Major depression Mild protein-calorie malnutrition ([facility]) 08/26/2020 Obesity PE (pulmonary thromboembolism) ([facility]) PTSD (post-traumatic stress disorder) Snoring [...] Abs Lymph 1.00 - 4.00 k/uL 1.75 Vance% % 9.1 Abs Vance <0.87 k/uL 0.67 Eosin% % 4.1 Abs [...] decline may consider formal neurocognitive testing. Urvashi Hguhes APRN.ALYSSA I spent a total of 45 minutes on the date of the service which included preparing to see the patient, ougz-td-zuze patient care, completing clinical documentation, obtaining and/or reviewing separately obtained history, performing a medically appropriate examination, and counseling and educating the patient/family/caregiver. documented in this encounter [facility] 08-17-2022 Miscellaneous Notes Patient has been [...] Sruthi Piña LPN documented in this encounter [facility] 08-16-2022 Miscellaneous Notes Last OV: 08/16/22 Patient has been identified by name and date of : Yes Requested Prescriptions Pending Prescriptions Disp Refills Cholecalciferol, Vitamin D3, (VITAMIN D) 25 mcg (1,000 unit) cap 90 capsule 1 Sig: Take 1 capsule by mouth once daily. RX INSTRUCTIONS: Pharmacy initiated this request. No need to notify patient. Zoraida Garcia LPN documented in this encounter [facility] 08-16-2022 Note HNO ID: [id number] Author: Jaimee Palomares PA-C Service: ? Author Type: Physician Shoe Treer Type: Progress Notes Filed: 08/16/2022 1:40 PM [...] disease) with chronic bronchitis (hcc) Centrilobar emphysema Toy Assembler Wood: none. Interval history: none. Current medications: Albuterol [...] suspicious mass or adenopathy. 05/05/2022 CTA chest [facility] admit: Mild peribronchial thickening with layered fluid [...] Radiculopathy, lumbar region Pain management Dr. Troy, [facility] Current medications: Baclofen 10mg twice a day as needed Pregabalin 150mg twice a day Consult PT Can't sleep. Shooting pain from left buttock down leg in to left foot. 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 Taking everything she can. Tearful, c/o no one treating her pain. Wants medication for pain. States she wants surgery: see neurosurgeon at [facility] 06/24/2022 CT cervical spine without contrast [facility] ED, comparison 05/05/2022: Degenerative changes of anterior [...] of Onset Hy (more content not included)... [facility] 08-16-2022 Instructions Jaimee Palomares PA-C - 08/16/2022 11:47 AM EST See piriformis stretches; try 2-3 times a day. documented in this encounter [facility] 08-16-2022 History of Present illness Narrative [...] disease) with chronic bronchitis (hcc) Centrilobar emphysema Toy Assembler Wood: none. Interval history: none. Current medications: Albuterol [...] suspicious mass or adenopathy. 05/05/2022 CTA chest [facility] admit: Mild peribronchial thickening with layered fluid [...] Radiculopathy, lumbar region Pain management Dr. Troy, [facility] Current medications: Baclofen 10mg twice a day as needed Pregabalin 150mg twice a day Consult PT Can't sleep. Shooting pain from left buttock down leg in to left foot. 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 Taking everything she can. Tearful, c/o no one treating her pain. Wants medication for pain. States she wants surgery: see neurosurgeon at [facility] 06/24/2022 CT cervical spine without contrast [facility] ED, comparison 05/05/2022: Degenerative changes of anterior [...] Drug use 08/15/2018 ecstacy Emphysema of lung ([facility]) Encounter for support and coordination of transition of care 05/15/2020 HOSPITAL/ER FOLLOW UP Which facility: [facility] Dates of visit: 05/10-05/13/2020 Preadmission evaluation: ER [...] of admission 05/01/2021 Date of discharge: Facility: [facility] 05/01/2021 presented to the emergency room with acute alcohol intoxication, initial alcohol level 7-8. Acknowledges over the last 5 months drinking 15 packs a day at 8% alcohol (natty daddy). Vital signs 96.6 [id number]/73-98%. Appearance was no acute distress. WBC 7.9-Hgb 13.8-HCT 39 GERD (gastroesophageal reflux disease) Hyperglycemia Hypertension Lung abscess ([facility]) saw Néstor Li and Signs. Major depression Mild protein-calorie malnutrition ([facility]) 08/26/2020 Obesity PE (pulmonary thromboembolism) [...] ICD9: 492.8, ICD10: J43.2 Stable, follows with [facility] 6. Alcohol abuse - ICD9: 305.00, [...] context and comparison. documented in this encounter [facility] 08-12-2022 Miscellaneous Notes Patient phones requesting refills as follows: Requested Prescriptions Pending Prescriptions Disp Refills omeprazole (PRILOSEC) 20 mg capsule [Pharmacy Med Name: Omeprazole 20MG CPDR] 30 capsule 5 Sig: TAKE 1 CAPSULE BY MOUTH DAILY Please review and advise. Alison Demarco Ma documented in this encounter [facility] 08-05-2022 Miscellaneous Notes CORY: 07/29/22 NOV [...] Stephany Bowser Pss documented in this encounter [facility] 07-29-2022 Note HNO ID: [id number] Author: Memo Huber MD Service: ? Author [...] other than her urine is strong. No wood tank builder issues. Mild occasional headaches. No neuro issues. Had ct of chest done in 06/10 Had mri of the brain in the fall. Ct of head and spine recently after a fall. Had wood tank builder exam in 06/10 and has had a [...] care 05/15/2020 HOSPITAL/ER FOLLOW UP Which facility: [facility] Dates of visit: 05/10-05/13/2020 Preadmission evaluation: ER [...] of admission 05/01/2021 Date of discharge: Facility: [facility] (more content not included)... [facility] 07-29-2022 Note HNO ID: [id number] Author: Shruthi Keita MA Service: ? Author Type: Environmental Research Project Manager Type: Progress Notes Filed: 07/29/2022 1:46 PM [...] for suicidal ideas. The patient is nervous/anxious. [facility] 07-29-2022 Note HNO ID: [id number] Author: Deloris Troy MD Service: ? Author Type: Physician Type: Progress Notes Filed: 07/29/2022 1:46 PM Note Text: [facility] Today's Date: 07/29/2022 Last Visit: 06/03/2022 Name: [...] DATE OF EXAM: Jun 05 2021 10:50AM [facility] 0303 - MRI LUMBAR SPINE WO [...] This information is taken directly from the order selector system. 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 [place] at L4-L5. Mild straightening of usual lumbar lordosis and slightly kyphotic alignment at the level of L1 related to minimal old anterior wedging morphology of L1. Bone marrow signal/fracture: Advanced endplate degenerative change at L1-L2 through the L4-L5 level. Type I endplate changes, which may contribute to mechanical back pain. Multilevel endplate irregularities which have (more content not included)... [facility] 07-21-2022 Miscellaneous Notes Fax written and sent to Lynda. Please advise Lynda akins d/c O2. Thanks, Faustino Palomares PA-C documented in this encounter [facility] 07-16-2022 Miscellaneous Notes Last Office Visit: [...] Last Labs: 05/07/2022 documented in this encounter [facility] 07-14-2022 Miscellaneous Notes Patient has been [...] Fadumo Romero RN documented in this encounter [facility] 06-24-2022 Miscellaneous Notes Patient contacted Nurse Triage and was advised by them to immediately go the ER for evaluation. Nita Gabriel LPN June 24, 2022 10:59 AM Agree, patient needs to have ER evaluation s/p fall. Thank you, Shira Kam APRN.INSPECTOR EXHAUST EMISSIONS Spoke with patient and informed them of [...] Please update patient. Thank you, Shira Kam APRN.INSPECTOR EXHAUST EMISSIONS Patient pharmacy called Baclofen directions does not match quantity patient will only have a 15 day supply with directions on the script, please advise. documented in this encounter [facility] 06-24-2022 Miscellaneous Notes Patient call in [...] left leg are bad Protocols used: Hip [id number]-DG documented in this encounter [facility] 06-18-2022 Miscellaneous Notes Correct this was completed yesterday and the order was faxed. I think this was done. Thanks, Faustino Palomares PA-C Pt called in and reports she gets her incontinence supplies through [facility]. The phone number for them is [phone] fax # [phone]. She states they told her she needs [...] the providers office. documented in this encounter [facility] 06-18-2022 Miscellaneous Notes Opened in error. Fadumo Romero RN documented in this encounter [facility] 06-18-2022 Miscellaneous Notes [facility] [place] [facility] [facility] Telephone Medication Refill Request Name/dose: Baclofen 10mg tablet Amount dispensed monthly: 60 Date last filled: 05/31/2022 Date last seen in office: 06/03/2022 Provider: Shira Kam Next scheduled visit: 07/05/2022 Pharmacy: [facility] [address] [place] [address] - [address] - [phone] Nita Gabriel LPN June 18, 2022 11:10 AM documented in this encounter [facility] 06-16-2022 Note HNO ID: [id number] Author: James Hartmann PT Service: ? Author [...] and so the patient was directed to [facility]. This PT printed off the patient's PT order and handed it to her. The patient then left the PT department. James Hartmann PT [facility] 06-16-2022 History of Present illness Narrative Pt arrived to [facility] for Physical Therapy appointment. It was determined that the patient and the patient's referring provider were wanting a course of aquatic therapy for the patient's back pain. There is no aquatic therapy provided at this location, and so the patient was directed to [facility]. This PT printed off the patient's PT order and handed it to her. The patient then left the PT department. James Hartmann PT documented in this encounter [facility] 06-16-2022 Miscellaneous Notes Waiting to hear [...] send order to. documented in this encounter [facility] 06-03-2022 Miscellaneous Notes Sent in consult to physical therapy, confirmation number is [id number] documented in this encounter [facility] 06-03-2022 Note HNO ID: [id number] Author: Shira Kam APRN.INSPECTOR EXHAUST EMISSIONS Service: ? Author Type: Nurse Practitioner Type: Progress Notes Filed: 06/03/2022 11:49 AM Note Text: [facility] [place] [facility] Today's Date: 06/03/2022 Last Visit: Name: [...] adequate Current Anti-Coagulant Use: No Risk Assessment: BEOT-7: BETO - 7 SCORES 11/12/2021 02/18/2022 BETO-7 Score 7 10 (0-4) minimal anxiety, (5-9) mild anxiety, (10-14) moderate anxiety, (15-21) severe anxiety PHQ-9: PHQ-9 02/13/2019 11/12/2021 02/18/2022 Score 17 4 17 (0-4) minimal depression, (5-9) mild depression, (10-14) moderate depression, (15-19) moderately severe depression, (20-27) severe depression Compliance: PDMP website checked and validated. Fills various opioids from several providers 06/03/2022 by Shira Kam APRN.INSPECTOR EXHAUST EMISSIONS Allergies: ALLERGIES Allergen Reactions Fentanyl Other: See [...] This information is taken directly from the order selector system. 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 [place] at L4-L5. Mild straightening of usual lumbar [...] impingement of the distal cord within the aynng-rt-lrqq. Paraspinal soft tissues: As above. No paraspinal masses are evident. Lower thoracic spine: Canal and foramina are normally patent at T11-T12. Facet degenerative changes are present at this level, but no significant impact on canal or foraminal patenc (more content not included)... [facility] 06-03-2022 Note HNO ID: [id number] Author: Shruthi Keita MA Service: ? Author Type: Environmental Research Project Manager Type: Progress Notes Filed: 06/03/2022 11:49 AM [...] for suicidal ideas. The patient is nervous/anxious. [facility] 06-03-2022 Miscellaneous Notes 1.Are you diabetic [...] vaccine.) Noy Mcintosh documented in this encounter [facility] 06-03-2022 Instructions Shira Kam APRN.CNP - 06/03/2022 11:32 AM EST Activity as tolerated Use Ice and/or heat as tolerated as needed documented in this encounter [facility] 06-03-2022 History of Present illness Narrative Images from the original note were not included. [facility] Today's Date: 06/03/2022 Last Visit: Name: [...] from several providers 06/03/2022 by Shira Kam APRN.INSPECTOR EXHAUST EMISSIONS Allergies: ALLERGIES Allergen Reactions Fentanyl Other: See Comments PATCH ONLY. Respiratory distress due to rapid absorption. Chantix [Vareniclin* Intolerance hallucinations Data Reviewed: Reviewed personally on today's date 06/03/2022 Relevant Imaging: MRI Spine Report MRI LUMBAR SPINE WO IVCON Exam End: 06/05/2021 10:57 AM (Final result) Narrative: * * *Final Report* * * DATE OF EXAM: Jun 05 2021 10:50AM [facility] 0303 - MRI LUMBAR SPINE WO [...] This information is taken directly from the order selector system. 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 [place] at L4-L5. Mild straightening of usual lumbar [...] impingement of the distal cord within the jqdnv-zt-sjvq. Paraspinal soft tissues: As above. No paraspinal [...] annulus, and facet degenerative change contributes to xbrq-up-anznexyx right foraminal narrowing. L4-L5: Disk bulging, loss [...] and assume there are 5 lumbar-type vertebrae. Ultimate Hoops Scoreboard Operator: CJ Transcribe Date/Time: Jun 05 2021 11:26A [...] and an alternative NSAID, she declined Functional Temple: Physical Therapy (Aquatic) Additional Studies: Referrals: Additional: [...] decision making from today's date. Shira Kam APRN.INSPECTOR EXHAUST EMISSIONS Pain Management [facility] Review of Systems Constitutional: Negative for activity [...] patient is nervous/anxious. 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 History Comments: Sexual Activity: Not Currently; No [...] care 05/15/2020 HOSPITAL/ER FOLLOW UP Which facility: [facility] Dates of visit: 05/10-05/13/2020 Preadmission evaluation: ER [...] of admission 05/01/2021 Date of discharge: Facility: [facility] 05/01/2021 presented to the emergency room with [...] external genitalia normal, normal Bartholin's glands, urethra, Holcomb's glands, no vulvar lesions, no cervical lesions, [...] Jenifer Yeager APRN.CNM documented in this encounter [facility] 05-21-2022 Miscellaneous Notes Patient has been [...] Fadumo Romero RN documented in this encounter [facility] 05-20-2022 Miscellaneous Notes Patient has visit tomorrow with PLASTER FOREMAN she is going to take her cuff [...] new BP monitor. documented in this encounter [facility] 05-14-2022 History of Present illness Narrative 52 year old female with c/o hospital follow up [facility]20[facility] to [facility] with lightheadedness and multiple syncopal episodes one [...] care 05/15/2020 HOSPITAL/ER FOLLOW UP Which facility: [facility] Dates of visit: 05/10-05/13/2020 Preadmission evaluation: ER [...] of admission 05/01/2021 Date of discharge: Facility: [facility] 05/01/2021 presented to the emergency room with [...] months. Educated on lung nodule recurrence in [place]. - CT CHEST WO IVCON 3. Syncope, [...] Jaimee Palomares PA-C documented in this encounter [facility] 05-11-2022 Miscellaneous Notes TC to patient [...] Memo Leahy MD documented in this encounter [facility] 05-07-2022 History of Present illness Narrative [...] anxiety and hearing voices. Pt was in [facility] ER yesterday due to syncope, hypotension and [...] and bkwd) Sentence repeat: 07/22 Serial 7s: [id number] 08/20 Similar objects: 07/22 Orientation: May 07, 2022, Fri, [place], [place] 11/23 Delayed recall: 10/22 Clock Drawin/3 Cube [...] Drug use 08/15/2018 ecstacy Emphysema of lung ([facility]) Encounter for support and coordination of transition of care 05/15/2020 HOSPITAL/ER FOLLOW UP Which facility: [facility] Dates of visit: 05/10-05/13/2020 Preadmission evaluation: ER [...] of admission 05/01/2021 Date of discharge: Facility: [facility] 05/01/2021 presented to the emergency room with [...] which included preparing to see the patient, rzdt-hd-teec patient care, completing clinical documentation, obtaining and/or reviewing separately obtained history, performing a medically appropriate examination, counseling and educating the patient/family/caregiver, ordering medications, tests, or procedures, independently interpreting results (not separately reported), and communicating results to the patient/family/caregiver. documented in this encounter [facility] 05-07-2022 Miscellaneous Notes Patient called in leaving a voicemail asking for a call back. Nothing was stated what it was about. Sheila Granado documented in this encounter [facility] 04-23-2022 Miscellaneous Notes Patient has been [...] Maribell Baltazar LPN documented in this encounter [facility] 04-19-2022 Miscellaneous Notes Pt calls to report she takes 2-3 ibuprofen 800 tabs daily but only gets prescribed #30 rf 1 so pt runs out of medication quickly. Pt reports she did not get any ibuprofen in this month's delivery from [place] and was advised that she needed a [...] Zoraida Garcia LPN documented in this encounter [facility] 04-01-2022 Aura Palomares PA-C - 04/01/2022 9:37 AM EDT Desvenlafaxine: Patient drug information Access [employer] for additional drug information, tools, and databases. Copyright 6399-8128 [employer]. All rights reserved. (For additional information see [...] much, and when it happened. Last Reviewed [id number] Consumer Information Use and Disclaimer This information [...] of this information is governed by the [employer] User License Agreement, available at https://www.[employer]/en/ solutions/Nomiku/about/garcia. 2020 [employer]. and its affiliates and/or licensors. All rights reserved. Use of [employer] is subject to the Subscription and License Agreement. Topic 94320 Version 147.0 documented in this encounter [facility] 04-01-2022 History of Present illness Narrative [...] care 05/15/2020 HOSPITAL/ER FOLLOW UP Which facility: [facility] Dates of visit: 05/10-05/13/2020 Preadmission evaluation: ER [...] of admission 05/01/2021 Date of discharge: Facility: [facility] 05/01/2021 presented to the emergency room with [...] Jaimee Palomares PA-C documented in this encounter [facility] 03-26-2022 Miscellaneous Notes Refill approved. Has appointment in April. Deloris Troy III, [place], [place] [facility] [place] [facility] Telephone Medication Refill Request Name/dose: BACLOFEN 10 Amount dispensed monthly: 60 Date last filled: 01/01/22 Date last seen in office: 04/16/2021 Provider: Deloris Troy MD Next scheduled visit: 05/06/22 Pharmacy: [facility] - [address] [place] [address] - [address] [phone] [address] [place] [address] Odalys Brizuela MA documented in this encounter [facility] 03-25-2022 Miscellaneous Notes Patient arrived 17 [...] which was the first available at the [place] office. documented in this encounter [facility] 03-17-2022 History of Present illness Narrative [...] care 05/15/2020 HOSPITAL/ER FOLLOW UP Which facility: [facility] Dates of visit: 05/10-05/13/2020 Preadmission evaluation: ER [...] of admission 05/01/2021 Date of discharge: Facility: [facility] 05/01/2021 presented to the emergency room with [...] TIME: 11:11 AM documented in this encounter [facility] 03-15-2022 Miscellaneous Notes Pharmacy calls in requesting the following refill(s): Requested Prescriptions Pending Prescriptions Disp Refills ibuprofen (MOTRIN) 800 mg tablet 30 tablet 1 Sig: Take 1 tablet by mouth every 8 hours as needed for pain. Take with food. documented in this encounter [facility] 03-11-2022 Miscellaneous Notes Patient approved for Hep C treatment through medicaid, will ship from [facility]. Patient to call when receives medication in hand to review treatment protocol and follow up labs. Requested Prescriptions Pending Prescriptions Disp Refills sofosbuvir-velpatasvir 400-100 mg 28 tablet 2 Sig: Take one tablet by mouth, with or without food, once daily same time of day Bharti Sherman CMA documented in this encounter [facility] 02-26-2022 Miscellaneous Notes Patient has been [...] Jaimee Foster RN documented in this encounter [facility] 02-25-2022 History of Present illness Narrative 51 year old female with c/o low BP, dizziness which start Tuesday. 17 minutes late for appointment. 02/24/2022 transforaminal injection L5-S1 bilateral Dr. Troy. Was dizzy with low BP but had procedure anyway. Stumbled in their office but didn't pass out. Was NPO after midnight. Sent from their office to the emergency department 02/24/2022 arrived at [facility] emergency department with complaint of hypertension, lightheadedness [...] care 05/15/2020 HOSPITAL/ER FOLLOW UP Which facility: [facility] Dates of visit: 05/10-05/13/2020 Preadmission evaluation: ER [...] of admission 05/01/2021 Date of discharge: Facility: [facility] 05/01/2021 presented to the emergency room with [...] malnutrition (HCC) 08/26/2020 Obesity PE (pulmonary thromboembolism) ([facility]) PTSD (post-traumatic stress disorder) Snoring [...] Received no reply to staff message to caustic cresylate shift superintendent Dr. Josué Blevins: We will have appointment [...] Jaimee Palomares PA-C documented in this encounter [facility] 02-24-2022 Miscellaneous Notes Notified pt of message below. Left appt as scheduled with Faustino at current time. Will route to Faustino to notify him of what's going on. Liliana London Ma I would go today to er Patient calling to say she had spinal injection done at [facility] today and her blood pressure was low [...] Laina Orellana RN documented in this encounter [facility] 02-24-2022 Nurse Note Patient advised to [...] is eating crackers. documented in this encounter [facility] 02-24-2022 Miscellaneous Notes OPERATIVE/PROCEDURE REPORT LOG ID: [id number] SURGERY/PROCEDURE DATE: 02/24/2022 INCISION/PROCEDURE START TIME: 10:05 AM INCISION CLOSE/PROCEDURE END TIME: 10:19 AM SURGEON(S)/PROCEDURALIST(S) AND MUSSEL FARMER(S): Surgeon(s) and Role: * Deloris Troy MD [...] TIME: 10:21 AM documented in this encounter [facility] 02-24-2022 History and physical note UPDATED [...] TIME: 9:46 AM documented in this encounter [facility] 02-23-2022 Miscellaneous Notes I have attempted to contact this patient by phone, Left brief message on cell voicemail stating to give us a call back at [phone] Laura Pena documented in this encounter [facility] 02-17-2022 Miscellaneous Notes Order signed by Dr. Huber and faxed back to [facility]. Suzie Powell documented in this encounter [facility] 02-11-2022 History of Present illness Narrative 51 year old female with c/o here for medication follow up. 01/01/2022 tripped and fell landing on her outstretched right wrist, with deformity she went to [facility] ED where x-rays confirmed fracture right distal radius Palomares's fracture with comminuted intra-articular distal radial fracture and angulated fragment, wrist was reduced under anesthesia. She was splinted and referred to [place] orthopedic Dr. Prasanth Jones. Started rehab tomorrow [...] 6 - 29 U/L 16 Reference ID [id number] Footnote SEE NOTE Component Latest Ref Rng [...] Centrilobular emphysema (hcc) Pe (pulmonary thromboembolism) (hcc) Toy Assembler Wood: Susu . Interval history: no recent testing [...] Hair falling out Sees Dr. Renata Turner [facility] Stress incontinence Current medications: Bacterial vaginosis Not [...] care 05/15/2020 HOSPITAL/ER FOLLOW UP Which facility: [facility] Dates of visit: 05/10-05/13/2020 Preadmission evaluation: ER [...] of admission 05/01/2021 Date of discharge: Facility: [facility] 05/01/2021 presented to the emergency room with [...] malnutrition (HCC) 08/26/2020 Obesity PE (pulmonary thromboembolism) ([facility]) PTSD (post-traumatic stress disorder) Snoring [...] TSH BLD 16. Stress incontinence - ICD9: [id number], ICD10: N39.3 Oxybutynin did not help. Discussed [...] Jaimee Palomares PA-C documented in this encounter [facility] 02-05-2022 Instructions Abi Davey PA-C - [...] types of injections. documented in this encounter [facility] 02-05-2022 History of Present illness Narrative [...] or double vision) Respiratory: Negative (No Cough, Ntftuggvj-xn-xsxaxg, Dyspnea on exertion, wheezing) Cardiovascular: Negative (No [...] ([place]) [facility] documented in this encounter [facility] 01-29-2022 Miscellaneous Notes Patient has been [...] Maribell Baltazar LPN documented in this encounter [facility] 01-29-2022 Miscellaneous Notes Patient call and LVM stated she missed her appt on 01/[address] Troy and needs to reschedule. I have attempted to contact this patient by phone, Left brief message on cell voicemail stating to call back to reschedule. Cris Lopez Electrician Apprentice to Dr. Roy, Dr. Palma, Workers Compensation [facility] P: [id number] / F: [phone] / [email or web address] documented in this encounter [facility] 01-27-2022 Instructions Abi Davey PA-C - [...] types of injections. documented in this encounter [facility] 01-27-2022 History of Present illness Narrative [...] or double vision) Respiratory: Negative (No Cough, Hwkmbrqod-hh-klltqv, Dyspnea on exertion, wheezing) Cardiovascular: Negative (No [...] ([place]) Pain [facility] documented in this encounter [facility] 01-18-2022 History of Present illness Narrative [...] external genitalia normal, normal Bartholin's glands, urethra, Holcomb's glands, no vulvar lesions, good vaginal support, [...] 4 - Moderate documented in this encounter [facility] 01-04-2022 Miscellaneous Notes Please change her [...] virtual appointment tomorrow. PDMP reviewed, had [address] [place] on 01/01. Will write [address] [place] , must last a full 7 days. [...] advise. Laura Pena documented in this encounter [facility] 01-04-2022 Miscellaneous Notes Called patient to inform her, mailed her the numbers for the other home health agencies per her request Please let the pt know Denice Gr APRN.INSPECTOR EXHAUST EMISSIONS Thank you for the referral of your patient to [facility]. At this time, we are unable to accommodate your patient s needs in a safe and timely fashion. In order to help your patient receive quality home care, we have included reputable agencies that service this area: [facility] or [phone]. [place] [facility] Phone [place] Please contact these agencies and they will work with your patient to arrange timely services. documented in this encounter [facility] 12-25-2021 Miscellaneous Notes I scanned fibroscan results from [facility] today for you to review. Emma Torres Fibroscan reviewed. F2S2 Bharti - can you check on the Hep C treatment status? Josué Blevins MD documented in this encounter [facility] 12-15-2021 Aura Ann MD - 12/15/2021 8:47 AM EDT It was great to see you today! You have urge and stress incontinence. Lets try a bladder relaxant and Kegel exercises. I want you to see Dorothy in 6 weeks to see how things stand. documented in this encounter [facility] 12-15-2021 History of Present illness Narrative Images from the original note were not included. [facility] [place] NEW PATIENT ENCOUNTER HISTORY OF PRESENT ILLNESS: [...] Drug use 08/15/2018 ecstacy Emphysema of lung ([facility]) Encounter for support and coordination of transition of care 05/15/2020 HOSPITAL/ER FOLLOW UP Which facility: [facility] Dates of visit: 05/10-05/13/2020 Preadmission evaluation: ER [...] of admission 05/01/2021 Date of discharge: Facility: [facility] 05/01/2021 presented to the emergency room with [...] malnutrition (HCC) 08/26/2020 Obesity PE (pulmonary thromboembolism) ([facility]) PTSD (post-traumatic stress disorder) Snoring [...] by contextual derivation. documented in this encounter [facility] 12-10-2021 Miscellaneous Notes Patient has been [...] Fadumo Romero RN documented in this encounter [facility] 12-10-2021 Miscellaneous Notes 1.Are you diabetic [...] vaccine.) Jenifer Sherman documented in this encounter [facility] 12-09-2021 Miscellaneous Notes Please see below regarding home care Denice Gr APRN.CNP Thank you for the referral of your patient to [facility]. At this time, we are at capacity and are unable to accept your patient. In order to help your patient receive quality home care, we have included reputable agencies that service this area: [facility] [phone] or [phone]. Please contact this agency and they will work with your patient to arrange timely services. Thank you, SHERLEY Castorena 12/09/2021 3:03 PM documented in this encounter [facility] 12-09-2021 Instructions Denice Gr APRN.CNP - 12/09/2021 2:51 PM EDT Ice and heat as tolerated Activity as tolerated documented in this encounter [facility] 12-07-2021 History of Present illness Narrative [...] and assume there are 5 lumbar-type vertebrae. Ultimate Hoops Scoreboard Operator: CJ Transcribe Date/Time: Jun 05 2021 11:26A [...] This information is taken directly from the order selector system. 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 [place] at L4-L5. Mild straightening of usual lumbar [...] impingement of the distal cord within the mzxtt-ed-dvxu. Paraspinal soft tissues: As above. No paraspinal [...] annulus, and facet degenerative change contributes to dkhq-if-kuhculdh right foraminal narrowing. L4-L5: Disk bulging, loss [...] Impression IMPRESSION: Spondylosis of the cervical spine. [employer]ops Scoreboard Operator: CJ Transcribe Date/Time: Nov 12 2021 4:07P [...] Total Time Spent: 15 minutes Denice Gr APRN.INSPECTOR EXHAUST EMISSIONS documented in this encounter [facility] 12-07-2021 Miscellaneous Notes Spoke with Mariluz, gave her the number to schedule her fibroscan at [facility], and let her know she can get her labs done at the [facility] for Hep C meds. Bharti Sherman CMA documented in this encounter [facility] 11-27-2021 Nurse Note Pt states readines for discharge. Dr. Blevins at bedside speaking with mario. documented in this encounter [facility] 11-27-2021 History and physical note HISTORY [...] Sedation Plan: Moderate Additional Comments: None Josué Belvins MD documented in this encounter [facility] 11-23-2021 Miscellaneous Notes Faxed over fibroscan to [facility]. Asked for them to contact patient directly to get scheduled. Sydney Bowens documented in this encounter [facility] 11-23-2021 Instructions Josué Blevins MD - [...] If you do not have a responsible parcel post truck driver (family member or friend) with [...] exam. 2 05/2019 documented in this encounter [facility] 11-23-2021 History of Present illness Narrative CHIEF COMPLAINT: Patient presents with: Chronic Hep C: Labs 11/12/21 This consult was requested by Jaimee Palomares PA-C for an opinion regarding hepatitis C. My final recommendations will be communicated to the requesting health care provider by way of the shared medical record for internal providers or letter via the [employer] for external providers. HPI: Mariluz [...] 8 years, says one of them in [place]. Had blood transfusion few years ago for [...] care 05/15/2020 HOSPITAL/ER FOLLOW UP Which facility: [facility] Dates of visit: 05/10-05/13/2020 Preadmission evaluation: ER [...] of admission 05/01/2021 Date of discharge: Facility: [facility] 05/01/2021 presented to the emergency room with [...] Jaimee Palomares PA-C documented in this encounter [facility] 11-12-2021 Instructions Jaimee Palomares PA-C - [...] holding your breath. documented in this encounter [facility] 11-12-2021 History of Present illness Narrative 51 year old female with c/o follow up Was in ER last month: 10/12/2021 presented [facility] emergency room with complaint of chest pain via EMS. Worsening over 4 days, sharp, left-sided, worse with overhead movement and certain arm movements as well as taking deep breath. Physical exam: Vital signs 98.6 F-81-14-150/103-97% RA. Described as well-nourished and developed, no acute distress, chest wall negative for tenderness. Lab: CBC within normal limits except Hgb 15.7, lymph percent 15.9, Vance 14.0, eos 5.3. D-dimer elevated at 0.68. Chemistry profile within normal limits. Troponin 1 within normal limits at 4. Chest x-ray: No acute findings. Chest CTA: No evidence of pulmonary embolus, positive for pulmonary emphysema. EKG: Normal sinus rhythm ventricular rate 78, no ischemic changes. Patient discharged on prednisone 60 mg daily x5 days, naproxen 500 mg p.o. twice daily. Moved to [place] from [facility]. Current concerns: Hips are bothering her. 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 Feels stable overall PHQ-9 09/26/2018 02/13/2019 11/12/2021 [...] care 05/15/2020 HOSPITAL/ER FOLLOW UP Which facility: [facility] Dates of visit: 05/10-05/13/2020 Preadmission evaluation: ER [...] of admission 05/01/2021 Date of discharge: Facility: [facility] 05/01/2021 presented to the emergency room with acute alcohol intoxication, initial alcohol level 7-8. Acknowledges over the last 5 months drinking 15 packs a day at 8% alcohol (natty dadalfa). Vital signs 96.6 F-78-18-111/73-98%. Appearance was no acute distress. WBC 7.9 Hgb 13.8 HCT 39 GERD (gastroesophageal reflux disease) Hyperglycemia Hypertension Lung abscess (HCC) saw Néstor Li and Dr. Zarate. Major depression Obesity PE (pulmonary thromboembolism) ([facility]) PTSD (post-traumatic stress disorder) Snoring [...] (Degenerative Disc Disease), Lumbar Emphysema of Lung ([facility]) Tobacco Use Disorder Hypertension Gerd (Gastroesophageal Reflux Disease) Carpal Tunnel Syndrome, Bilateral Obesity Anemia Radiculopathy, Lumbar Region Alcohol Abuse Chronic Midline Low Back Pain With Left-Sided Sciatica Pe (Pulmonary Thromboembolism) ([facility]) Hyperglycemia Stasis Edema Right Lumbar Radiculopathy Obesity, Class III, BMI >= 40 (morbid obesity) E66.01 Delusional Disorder ([facility]) Chronic Low Back Pain With Sciatica Abnormal Echocardiogram Chronic Left-Sided Low Back Pain With Sciatica Copd (Chronic Obstructive Pulmonary Disease) With Chronic Bronchitis ([facility]) Positive Urine Drug Screen Mild Protein-Calorie Malnutrition ([facility]) Lumbar Spondylosis Cervical Spondylosis Without Myelopathy Other [...] with x-rays. 8. Stress incontinence - ICD9: [id number], ICD10: N39.3 - CONSULT TO PHYSICAL THERAPY [...] Jaimee Palomares PA-C documented in this encounter [facility] 11-06-2021 Miscellaneous Notes Schedulers please assist [...] NATALIO: No Authorizing Provider: Jaimee PALOMARES PA-C [facility] 07/23/21Apr no upcoming appt Patient has been [...] patient. Laisha Castañeda documented in this encounter [facility] 11-06-2021 Miscellaneous Notes [facility] 07/23/21Apr no upcoming appt Patient has been [...] patient. Laisha Castañeda documented in this encounter [facility] 10-23-2021 Miscellaneous Notes Thanks for the update. Baclofen for 90 days sent to pharmacy (including refills), she will need follow-up prior to next script. Deloris Troy III, MD, [place] [facility] [place] [facility] Telephone Medication Refill Request Name/dose: Baclofen [...] advise. Jenifer Sherman documented in this encounter [facility] 10-21-2021 Miscellaneous Notes No Show Documentation Mariluz Christine Jose no showed for an appointment on 10/21/21 with Denice Gr APRN.INSPECTOR EXHAUST EMISSIONS at 7:45. She was scheduled for follow [...] 2021 4:31 PM documented in this encounter [facility] 10-12-2021 Miscellaneous Notes Protocol recommends call [...] 11. : Pt denies. Protocols used: CHEST [id number] documented in this encounter [facility] 10-07-2021 Miscellaneous Notes Received and placed on providers desk to sign. We did not get all forms with the first fax. [facility] calling to say they are faxing CMN to PCP office to be completed for order for Adult Diapers/Pads. Laina Orellana RN documented in this encounter [facility] 10-05-2021 Miscellaneous Notes Pt. Previously scheduled 11/10. Will close TE at this time. Please schedule: Telephone on 10/04/21 [facility] DIAGNOSTIC BILAT US BREAST LTD LT US BREAST LTD RT Thanks, Faustino Palomares PA-C documented in this encounter [facility] 10-02-2021 Miscellaneous Notes Patient was notified [...] call to patient.. documented in this encounter [facility] 10-01-2021 Miscellaneous Notes October 01, 2021 PID: [id number] Mariluz Garcia [address] [address] Dear Ms. Garcia, Your recent breast imaging exam on 10/01/2021 showed a possible finding that requires additional imaging studies for a complete evaluation. Most such findings are probably benign (not cancer). If you have a healthcare provider who ordered/prescribed your screening mammogram: Please call [phone] or [phone] to schedule an appointment for your additional [...] and reports are kept on file at [facility] as part of your permanent medical record, and are available for your continuing care. Thank you for allowing us to help in meeting your health care needs. Sincerely, Dr. Loredo Interpreting Radiologist [facility] (Additional imaging) documented in this encounter [facility] 10-01-2021 History of Present illness Narrative [...] 2021 12:44 PM documented in this encounter [facility] 09-21-2021 Miscellaneous Notes Please advise insurance covers symbicort, similar to Breo The following approved medication requests have been transmitted electronically. Signed Prescriptions Disp Refills budesonide-formoterol (SYMBICORT) 160-4.5 mcg/actuation inhaler 1 Each 5 Sig: Inhale 2 Puffs as instructed twice daily. Authorizing Provider: Jaimee PALOMARES PA-C [facility] calling to state patient's Geraldine Reza is needing a pre-auth. Pharmacy states either symbicort or Dulera is covered by patient's insurance if provider would like to switch. Please advise [facility] at [phone]. Thank you. documented in this encounter [facility] 09-11-2021 Miscellaneous Notes Patient has been identified by name and date of : Yes Pending Prescriptions Disp Refills CHOLECALCIFEROL (VITAMIN D3) 25 MCG (1,000 UNIT) CAPSULE 90 capsule 1 Sig: Take 1 capsule by mouth once daily. NATALIO: No CORY-07/23/21 Labs-01/16/21 NOV-none RX INSTRUCTIONS: Pharmacy initiated this request. No need to notify patient. Stephany Bowser Pss documented in this encounter [facility] 07-17-2021 Miscellaneous Notes Sw spoke with patient in regarding patient needs. Patient reports that she can use a in home sales consultant. Patient reports that she has back pain and is unable to stand for long periods of time. Needs assistance with cooking, cleaning, grooming. Sw briefly discussed [place] [facility]. Patient notes that she had in home sales consultant in the past. The end and services [...] mail her number. Sw will mail patient [place] [facility] application with contact number. Called Pt and let her know that Stephany from [facility] had informed us that she had recently [...] need for help in the future. Stephany JAVIERmental health unit lead psychologist Care [facility] from [facility] called in and reports Pt had been in [facility] fr 04/30/22-05/02/22. Then she went to the [address] [place] [address] from 05/03/22-07/02/21 for a substance use disorder [...] provider was 01/17/12 documented in this encounter [facility] documented as of this encounter (statuses as of 09/11/2021) [facility] History of Past illness Narrative* Problem Noted Date Resolved Date Encounter for support and coordination of transi tion of care 05/02/2021 07/23/2021 Overview: Hospital discharge summary: Date of admission 05/01/2021 Date of discharge: Facility: [facility] 05/01/2021 presented to the emergency room with [...] 05/02/2021 Overview: HOSPITAL/ER FOLLOW UP Which facility: [facility] Dates of visit: 05/10-05/13/2020 Preadmission evaluation: ER [...] of this encounter (statuses as of 09/21/2021) [facility] History of Past illness Narrative* Problem Noted Date Resolved Date Encounter for support and coordination of transi tion of care 05/02/2021 07/23/2021 Overview: Hospital discharge summary: Date of admission 05/01/2021 Date of discharge: Facility: [facility] 05/01/2021 presented to the emergency room with [...] 05/02/2021 Overview: HOSPITAL/ER FOLLOW UP Which facility: [facility] Dates of visit: 05/10-05/13/2020 Preadmission evaluation: ER [...] of this encounter (statuses as of 09/22/2021) [facility] History of Past illness Narrative* Problem Noted Date Resolved Date Encounter for support and coordination of transi tion of care 05/02/2021 07/23/2021 Overview: Hospital discharge summary: Date of admission 05/01/2021 Date of discharge: Facility: [facility] 05/01/2021 presented to the emergency room with [...] 05/02/2021 Overview: HOSPITAL/ER FOLLOW UP Which facility: [facility] Dates of visit: 05/10-05/13/2020 Preadmission evaluation: ER [...] of this encounter (statuses as of 10/02/2021) [facility] History of Past illness Narrative* Problem Noted Date Resolved Date Encounter for support and coordination of transi tion of care 05/02/2021 07/23/2021 Overview: Hospital discharge summary: Date of admission 05/01/2021 Date of discharge: Facility: [facility] 05/01/2021 presented to the emergency room with [...] 05/02/2021 Overview: HOSPITAL/ER FOLLOW UP Which facility: [facility] Dates of visit: 05/10-05/13/2020 Preadmission evaluation: ER [...] of this encounter (statuses as of 10/02/2021) [facility] History of Past illness Narrative* Problem Noted Date Resolved Date Encounter for support and coordination of transi tion of care 05/02/2021 07/23/2021 Overview: Hospital discharge summary: Date of admission 05/01/2021 Date of discharge: Facility: [facility] 05/01/2021 presented to the emergency room with [...] 05/02/2021 Overview: HOSPITAL/ER FOLLOW UP Which facility: [facility] Dates of visit: 05/10-05/13/2020 Preadmission evaluation: ER [...] of this encounter (statuses as of 10/03/2021) [facility] History of Past illness Narrative* Problem Noted Date Resolved Date Encounter for support and coordination of transi tion of care 05/02/2021 07/23/2021 Overview: Hospital discharge summary: Date of admission 05/01/2021 Date of discharge: Facility: [facility] 05/01/2021 presented to the emergency room with [...] 05/02/2021 Overview: HOSPITAL/ER FOLLOW UP Which facility: [facility] Dates of visit: 05/10-05/13/2020 Preadmission evaluation: ER [...] of this encounter (statuses as of 10/05/2021) [facility] History of Past illness Narrative* Problem Noted Date Resolved Date Encounter for support and coordination of transi tion of care 05/02/2021 07/23/2021 Overview: Hospital discharge summary: Date of admission 05/01/2021 Date of discharge: Facility: [facility] 05/01/2021 presented to the emergency room with [...] 05/02/2021 Overview: HOSPITAL/ER FOLLOW UP Which facility: [facility] Dates of visit: 05/10-05/13/2020 Preadmission evaluation: ER [...] of this encounter (statuses as of 10/08/2021) [facility]11-13-2021 History of Past illness Narrative* Problem Noted Date Resolved Date Encounter for support and coordination of transi tion of care 05/02/2021 07/23/2021 Overview: Hospital discharge summary: Date of admission 05/01/2021 Date of discharge: Facility: [facility] 05/01/2021 presented to the emergency room with [...] 05/02/2021 Overview: HOSPITAL/ER FOLLOW UP Which facility: [facility] Dates of visit: 05/10-05/13/2020 Preadmission evaluation: ER [...] of this encounter (statuses as of 10/21/2021) [facility]11-13-2021 History of Past illness Narrative* Problem Noted Date Resolved Date Encounter for support and coordination of transi tion of care 05/02/2021 07/23/2021 Overview: Hospital discharge summary: Date of admission 05/01/2021 Date of discharge: Facility: [facility] 05/01/2021 presented to the emergency room with [...] 05/02/2021 Overview: HOSPITAL/ER FOLLOW UP Which facility: [facility] Dates of visit: 05/10-05/13/2020 Preadmission evaluation: ER [...] of this encounter (statuses as of 10/21/2021) [facility]11-13-2021 History of Past illness Narrative* Problem Noted Date Resolved Date Encounter for support and coordination of transi tion of care 05/02/2021 07/23/2021 Overview: Hospital discharge summary: Date of admission 05/01/2021 Date of discharge: Facility: [facility] 05/01/2021 presented to the emergency room with [...] 05/02/2021 Overview: HOSPITAL/ER FOLLOW UP Which facility: [facility] Dates of visit: 05/10-05/13/2020 Preadmission evaluation: ER [...] of this encounter (statuses as of 10/23/2021) [facility]-13-2021 History of Past illness Narrative* Problem Noted Date Resolved Date Encounter for support and coordination of transi tion of care 05/02/2021 07/23/2021 Overview: Hospital discharge summary: Date of admission 05/01/2021 Date of discharge: Facility: [facility] 05/01/2021 presented to the emergency room with [...] 05/02/2021 Overview: HOSPITAL/ER FOLLOW UP Which facility: [facility] Dates of visit: 05/10-05/13/2020 Preadmission evaluation: ER [...] of this encounter (statuses as of 11/06/2021) [facility]11-[facility]-2021 History of Past illness Narrative* Problem Noted Date Resolved Date Encounter for support and coordination of transi tion of care 05/02/2021 07/23/2021 Overview: Hospital discharge summary: Date of admission 05/01/2021 Date of discharge: Facility: [facility] 05/01/2021 presented to the emergency room with [...] 05/02/2021 Overview: HOSPITAL/ER FOLLOW UP Which facility: [facility] Dates of visit: 05/10-05/13/2020 Preadmission evaluation: ER [...] of this encounter (statuses as of 11/06/2021) [facility]2021 History of Past illness Narrative* Problem Noted Date Resolved Date Encounter for support and coordination of transi tion of care 05/02/2021 07/23/2021 Overview: Hospital discharge summary: Date of admission 05/01/2021 Date of discharge: Facility: [facility] 05/01/2021 presented to the emergency room with [...] 05/02/2021 Overview: HOSPITAL/ER FOLLOW UP Which facility: [facility] Dates of visit: 05/10-05/13/2020 Preadmission evaluation: ER [...] of this encounter (statuses as of 11/11/2021) [facility] History of Past illness Narrative* Problem Noted Date Resolved Date Encounter for support and coordination of transi tion of care 05/02/2021 07/23/2021 Overview: Hospital discharge summary: Date of admission 05/01/2021 Date of discharge: Facility: [facility] 05/01/2021 presented to the emergency room with [...] 05/02/2021 Overview: HOSPITAL/ER FOLLOW UP Which facility: [facility] Dates of visit: 05/10-05/13/2020 Preadmission evaluation: ER [...] of this encounter (statuses as of 11/13/2021) [facility]2021 History of Past illness Narrative* Problem Noted Date Resolved Date Encounter for support and coordination of transi tion of care 05/02/2021 07/23/2021 Overview: Hospital discharge summary: Date of admission 05/01/2021 Date of discharge: Facility: [facility] 05/01/2021 presented to the emergency room with [...] 05/02/2021 Overview: HOSPITAL/ER FOLLOW UP Which facility: [facility] Dates of visit: 05/10-05/13/2020 Preadmission evaluation: ER [...] of this encounter (statuses as of 11/23/2021) [facility]21 History of Past illness Narrative* Problem Noted Date Resolved Date Encounter for support and coordination of transi tion of care 05/02/2021 07/23/2021 Overview: Hospital discharge summary: Date of admission 05/01/2021 Date of discharge: Facility: [facility] 05/01/2021 presented to the emergency room with [...] 05/02/2021 Overview: HOSPITAL/ER FOLLOW UP Which facility: [facility] Dates of visit: 05/10-05/13/2020 Preadmission evaluation: ER [...] of this encounter (statuses as of 11/23/2021) [facility]21 History of Past illness Narrative* Problem Noted Date Resolved Date Encounter for support and coordination of transi tion of care 05/02/2021 07/23/2021 Overview: Hospital discharge summary: Date of admission 05/01/2021 Date of discharge: Facility: [facility] 05/01/2021 presented to the emergency room with acute alcohol intoxication, initial alcohol level 7-8. Acknowledges over the last 5 months drinking 15 packs a day at 8% alcohol (amrcin samaniego). Vital signs 96.6 [id number]%. Appearance was [...] 05/02/2021 Overview: HOSPITAL/ER FOLLOW UP Which facility: [facility] Dates of visit: 05/10-05/13/2020 Preadmission evaluation: ER [...] of this encounter (statuses as of 11/26/2021) [facility]21 History of Past illness Narrative* Problem Noted Date Resolved Date Encounter for support and coordination of transi tion of care 05/02/2021 07/23/2021 Overview: Hospital discharge summary: Date of admission 05/01/2021 Date of discharge: Facility: [facility] 05/01/2021 presented to the emergency room with [...] 05/02/2021 Overview: HOSPITAL/ER FOLLOW UP Which facility: [facility] Dates of visit: 05/10-05/13/2020 Preadmission evaluation: ER [...] of this encounter (statuses as of 11/28/2021) [facility]21 History of Past illness Narrative* Problem Noted Date Resolved Date Encounter for support and coordination of transi tion of care 05/02/2021 07/23/2021 Overview: Hospital discharge summary: Date of admission 05/01/2021 Date of discharge: Facility: [facility] 05/01/2021 presented to the emergency room with [...] 05/02/2021 Overview: HOSPITAL/ER FOLLOW UP Which facility: [facility] Dates of visit: 05/10-05/13/2020 Preadmission evaluation: ER [...] of this encounter (statuses as of 12/07/2021) [facility]-2021 History of Past illness Narrative* Problem Noted Date Resolved Date Encounter for support and coordination of transi tion of care 05/02/2021 07/23/2021 Overview: Hospital discharge summary: Date of admission 05/01/2021 Date of discharge: Facility: [facility] 05/01/2021 presented to the emergency room with [...] 05/02/2021 Overview: HOSPITAL/ER FOLLOW UP Which facility: [facility] Dates of visit: 05/10-05/13/2020 Preadmission evaluation: ER [...] of this encounter (statuses as of 12/09/2021) [facility]21 History of Past illness Narrative* Problem Noted Date Resolved Date Encounter for support and coordination of transi tion of care 05/02/2021 07/23/2021 Overview: Hospital discharge summary: Date of admission 05/01/2021 Date of discharge: Facility: [facility] 05/01/2021 presented to the emergency room with [...] 05/02/2021 Overview: HOSPITAL/ER FOLLOW UP Which facility: [facility] Dates of visit: 05/10-05/13/2020 Preadmission evaluation: ER [...] of this encounter (statuses as of 12/09/2021) [facility] History of Past illness Narrative* Problem Noted Date Resolved Date Encounter for support and coordination of transi tion of care 05/02/2021 07/23/2021 Overview: Hospital discharge summary: Date of admission 05/01/2021 Date of discharge: Facility: [facility] 05/01/2021 presented to the emergency room with [...] 05/02/2021 Overview: HOSPITAL/ER FOLLOW UP Which facility: [facility] Dates of visit: 05/10-05/13/2020 Preadmission evaluation: ER [...] of this encounter (statuses as of 12/10/2021) [facility] History of Past illness Narrative* Problem Noted Date Resolved Date Encounter for support and coordination of transi tion of care 05/02/2021 07/23/2021 Overview: Hospital discharge summary: Date of admission 05/01/2021 Date of discharge: Facility: [facility] 05/01/2021 presented to the emergency room with [...] 05/02/2021 Overview: HOSPITAL/ER FOLLOW UP Which facility: [facility] Dates of visit: 05/10-05/13/2020 Preadmission evaluation: ER [...] of this encounter (statuses as of 12/10/2021) [facility]21 History of Past illness Narrative* Problem Noted Date Resolved Date Encounter for support and coordination of transi tion of care 05/02/2021 07/23/2021 Overview: Hospital discharge summary: Date of admission 05/01/2021 Date of discharge: Facility: [facility] 05/01/2021 presented to the emergency room with [...] 05/02/2021 Overview: HOSPITAL/ER FOLLOW UP Which facility: [facility] Dates of visit: 05/10-05/13/2020 Preadmission evaluation: ER [...] of this encounter (statuses as of 12/10/2021) [facility] History of Past illness Narrative* Problem Noted Date Resolved Date Encounter for support and coordination of transi tion of care 05/02/2021 07/23/2021 Overview: Hospital discharge summary: Date of admission 05/01/2021 Date of discharge: Facility: [facility] 05/01/2021 presented to the emergency room with [...] 05/02/2021 Overview: HOSPITAL/ER FOLLOW UP Which facility: [facility] Dates of visit: 05/10-05/13/2020 Preadmission evaluation: ER [...] of this encounter (statuses as of 12/15/2021) [facility]21 History of Past illness Narrative* Problem Noted Date Resolved Date Encounter for support and coordination of transi tion of care 05/02/2021 07/23/2021 Overview: Hospital discharge summary: Date of admission 05/01/2021 Date of discharge: Facility: [facility] 05/01/2021 presented to the emergency room with [...] 05/02/2021 Overview: HOSPITAL/ER FOLLOW UP Which facility: [facility] Dates of visit: 05/10-05/13/2020 Preadmission evaluation: ER [...] of this encounter (statuses as of 01/04/2022) [facility]21 History of Past illness Narrative* Problem Noted Date Resolved Date Encounter for support and coordination of transi tion of care 05/02/2021 07/23/2021 Overview: Hospital discharge summary: Date of admission 05/01/2021 Date of discharge: Facility: [facility] 05/01/2021 presented to the emergency room with [...] 05/02/2021 Overview: HOSPITAL/ER FOLLOW UP Which facility: [facility] Dates of visit: 05/10-05/13/2020 Preadmission evaluation: ER [...] of this encounter (statuses as of 01/04/2022) [facility] History of Past illness Narrative* Problem Noted Date Resolved Date Encounter for support and coordination of transi on of care 05/02/2021 07/23/2021 Overview: Hospital discharge summary: Date of admission 05/01/2021 Date of discharge: Facility: [facility] 05/01/2021 presented to the emergency room with [...] 05/02/2021 Overview: HOSPITAL/ER FOLLOW UP Which facility: [facility] Dates of visit: 05/10-05/13/2020 Preadmission evaluation: ER [...] of this encounter (statuses as of 01/04/2022) [facility] History of Past illness Narrative* Problem Noted Date Resolved Date Encounter for support and coordination of transi tion of care 05/02/2021 07/23/2021 Overview: Hospital discharge summary: Date of admission 05/01/2021 Date of discharge: Facility: [facility] 05/01/2021 presented to the emergency room with [...] 05/02/2021 Overview: HOSPITAL/ER FOLLOW UP Which facility: [facility] Dates of visit: 05/10-05/13/2020 Preadmission evaluation: ER [...] of this encounter (statuses as of 01/14/2022) [facility] History of Past illness Narrative* Problem Noted Date Resolved Date Encounter for support and coordination of transi tion of care 05/02/2021 07/23/2021 Overview: Hospital discharge summary: Date of admission 05/01/2021 Date of discharge: Facility: [facility] 05/01/2021 presented to the emergency room with [...] 05/02/2021 Overview: HOSPITAL/ER FOLLOW UP Which facility: [facility] Dates of visit: 05/10-05/13/2020 Preadmission evaluation: ER [...] of this encounter (statuses as of 01/18/2022) [facility] History of Past illness Narrative* Problem Noted Date Resolved Date Encounter for support and coordination of transi tion of care 05/02/2021 07/23/2021 Overview: Hospital discharge summary: Date of admission 05/01/2021 Date of discharge: Facility: [facility] 05/01/2021 presented to the emergency room with [...] 05/02/2021 Overview: HOSPITAL/ER FOLLOW UP Which facility: [facility] Dates of visit: 05/10-05/13/2020 Preadmission evaluation: ER [...] partially distended gallbladder with a positive sonographic Kenndey sign, no gallstones. Also identified mild perihepatic [...] of this encounter (statuses as of 01/27/2022) [facility] History of Past illness Narrative* Problem Noted Date Resolved Date Encounter for support and coordination of transi tion of care 05/02/2021 07/23/2021 Overview: Hospital discharge summary: Date of admission 05/01/2021 Date of discharge: Facility: [facility] 05/01/2021 presented to the emergency room with [...] 05/02/2021 Overview: HOSPITAL/ER FOLLOW UP Which facility: [facility] Dates of visit: 05/10-05/13/2020 Preadmission evaluation: ER [...] of this encounter (statuses as of 01/29/2022) [facility] History of Past illness Narrative* Problem Noted Date Resolved Date Encounter for support and coordination of transi tion of care 05/02/2021 07/23/2021 Overview: Hospital discharge summary: Date of admission 05/01/2021 Date of discharge: Facility: [facility] 05/01/2021 presented to the emergency room with [...] 05/02/2021 Overview: HOSPITAL/ER FOLLOW UP Which facility: [facility] Dates of visit: 05/10-05/13/2020 Preadmission evaluation: ER [...] of this encounter (statuses as of 01/29/2022) [facility] History of Past illness Narrative* Problem Noted Date Resolved Date Encounter for support and coordination of transi tion of care 05/02/2021 07/23/2021 Overview: Hospital discharge summary: Date of admission 05/01/2021 Date of discharge: Facility: [facility] 05/01/2021 presented to the emergency room with [...] 05/02/2021 Overview: HOSPITAL/ER FOLLOW UP Which facility: [facility] Dates of visit: 05/10-05/13/2020 Preadmission evaluation: ER [...] of this encounter (statuses as of 02/05/2022) [facility] History of Past illness Narrative* Problem Noted Date Resolved Date Encounter for support and coordination of transi tion of care 05/02/2021 07/23/2021 Overview: Hospital discharge summary: Date of admission 05/01/2021 Date of discharge: Facility: [facility] 05/01/2021 presented to the emergency room with [...] 05/02/2021 Overview: HOSPITAL/ER FOLLOW UP Which facility: [facility] Dates of visit: 05/10-05/13/2020 Preadmission evaluation: ER [...] of this encounter (statuses as of 02/11/2022) [facility] History of Past illness Narrative* Problem Noted Date Resolved Date Encounter for support and coordination of transi tion of care 05/02/2021 07/23/2021 Overview: Hospital discharge summary: Date of admission 05/01/2021 Date of discharge: Facility: [facility] 05/01/2021 presented to the emergency room with [...] 05/02/2021 Overview: HOSPITAL/ER FOLLOW UP Which facility: [facility] Dates of visit: 05/10-05/13/2020 Preadmission evaluation: ER [...] of this encounter (statuses as of 02/17/2022) [facility] History of Past illness Narrative* Problem Noted Date Resolved Date Encounter for support and coordination of transi tion of care 05/02/2021 07/23/2021 Overview: Hospital discharge summary: Date of admission 05/01/2021 Date of discharge: Facility: [facility] 05/01/2021 presented to the emergency room with [...] 05/02/2021 Overview: HOSPITAL/ER FOLLOW UP Which facility: [facility] Dates of visit: 05/10-05/13/2020 Preadmission evaluation: ER [...] of this encounter (statuses as of 02/23/2022) [facility] History of Past illness Narrative* Problem Noted Date Resolved Date Encounter for support and coordination of transi tion of care 05/02/2021 07/23/2021 Overview: Hospital discharge summary: Date of admission 05/01/2021 Date of discharge: Facility: [facility] 05/01/2021 presented to the emergency room with [...] 05/02/2021 Overview: HOSPITAL/ER FOLLOW UP Which facility: [facility] Dates of visit: 05/10-05/13/2020 Preadmission evaluation: ER [...] of this encounter (statuses as of 02/24/2022) [facility] History of Past illness Narrative* Problem Noted Date Resolved Date Encounter for support and coordination of transi tion of care 05/02/2021 07/23/2021 Overview: Hospital discharge summary: Date of admission 05/01/2021 Date of discharge: Facility: [facility] 05/01/2021 presented to the emergency room with [...] 05/02/2021 Overview: HOSPITAL/ER FOLLOW UP Which facility: [facility] Dates of visit: 05/10-05/13/2020 Preadmission evaluation: ER [...] of this encounter (statuses as of 02/25/2022) [facility] History of Past illness Narrative* Problem Noted Date Resolved Date Encounter for support and coordination of transi tion of care 05/02/2021 07/23/2021 Overview: Hospital discharge summary: Date of admission 05/01/2021 Date of discharge: Facility: [facility] 05/01/2021 presented to the emergency room with [...] 05/02/2021 Overview: HOSPITAL/ER FOLLOW UP Which facility: [facility] Dates of visit: 05/10-05/13/2020 Preadmission evaluation: ER [...] of this encounter (statuses as of 02/26/2022) [facility] History of Past illness Narrative* Problem Noted Date Resolved Date Encounter for support and coordination of transi tion of care 05/02/2021 07/23/2021 Overview: Hospital discharge summary: Date of admission 05/01/2021 Date of discharge: Facility: [facility] 05/01/2021 presented to the emergency room with [...] 05/02/2021 Overview: HOSPITAL/ER FOLLOW UP Which facility: [facility] Dates of visit: 05/10-05/13/2020 Preadmission evaluation: ER [...] of this encounter (statuses as of 02/27/2022) [facility] History of Past illness Narrative* Problem Noted Date Resolved Date Encounter for support and coordination of transi tion of care 05/02/2021 07/23/2021 Overview: Hospital discharge summary: Date of admission 05/01/2021 Date of discharge: Facility: [facility] 05/01/2021 presented to the emergency room with [...] 05/02/2021 Overview: HOSPITAL/ER FOLLOW UP Which facility: [facility] Dates of visit: 05/10-05/13/2020 Preadmission evaluation: ER [...] of this encounter (statuses as of 03/02/2022) [facility] History of Past illness Narrative* Problem Noted Date Resolved Date Encounter for support and coordination of transi tion of care 05/02/2021 07/23/2021 Overview: Hospital discharge summary: Date of admission 05/01/2021 Date of discharge: Facility: [facility] 05/01/2021 presented to the emergency room with [...] 05/02/2021 Overview: HOSPITAL/ER FOLLOW UP Which facility: [facility] Dates of visit: 05/10-05/13/2020 Preadmission evaluation: ER [...] of this encounter (statuses as of 03/11/2022) [facility] History of Past illness Narrative* Problem Noted Date Resolved Date Encounter for support and coordination of transi tion of care 05/02/2021 07/23/2021 Overview: Hospital discharge summary: Date of admission 05/01/2021 Date of discharge: Facility: [facility] 05/01/2021 presented to the emergency room with [...] 05/02/2021 Overview: HOSPITAL/ER FOLLOW UP Which facility: [facility] Dates of visit: 05/10-05/13/2020 Preadmission evaluation: ER [...] of this encounter (statuses as of 03/12/2022) [facility] History of Past illness Narrative* Problem Noted Date Resolved Date Encounter for support and coordination of transi tion of care 05/02/2021 07/23/2021 Overview: Hospital discharge summary: Date of admission 05/01/2021 Date of discharge: Facility: [facility] 05/01/2021 presented to the emergency room with [...] 05/02/2021 Overview: HOSPITAL/ER FOLLOW UP Which facility: [facility] Dates of visit: 05/10-05/13/2020 Preadmission evaluation: ER [...] of this encounter (statuses as of 03/16/2022) [facility] History of Past illness Narrative* Problem Noted Date Resolved Date Encounter for support and coordination of transi tion of care 05/02/2021 07/23/2021 Overview: Hospital discharge summary: Date of admission 05/01/2021 Date of discharge: Facility: [facility] 05/01/2021 presented to the emergency room with [...] 05/02/2021 Overview: HOSPITAL/ER FOLLOW UP Which facility: [facility] Dates of visit: 05/10-05/13/2020 Preadmission evaluation: ER [...] of this encounter (statuses as of 03/17/2022) [facility] History of Past illness Narrative* Problem Noted Date Resolved Date Encounter for support and coordination of transi tion of care 05/02/2021 07/23/2021 Overview: Hospital discharge summary: Date of admission 05/01/2021 Date of discharge: Facility: [facility] 05/01/2021 presented to the emergency room with [...] 05/02/2021 Overview: HOSPITAL/ER FOLLOW UP Which facility: [facility] Dates of visit: 05/10-05/13/2020 Preadmission evaluation: ER [...] of this encounter (statuses as of 03/25/2022) [facility] History of Past illness Narrative* Problem Noted Date Resolved Date Encounter for support and coordination of transi tion of care 05/02/2021 07/23/2021 Overview: Hospital discharge summary: Date of admission 05/01/2021 Date of discharge: Facility: [facility] 05/01/2021 presented to the emergency room with [...] 05/02/2021 Overview: HOSPITAL/ER FOLLOW UP Which facility: [facility] Dates of visit: 05/10-05/13/2020 Preadmission evaluation: ER [...] of this encounter (statuses as of 03/26/2022) [facility]11-13-2021 History of Past illness Narrative* Problem Noted Date Resolved Date Encounter for support and coordination of transi tion of care 05/02/2021 07/23/2021 Overview: Hospital discharge summary: Date of admission 05/01/2021 Date of discharge: Facility: [facility] 05/01/2021 presented to the emergency room with [...] 05/02/2021 Overview: HOSPITAL/ER FOLLOW UP Which facility: [facility] Dates of visit: 05/10-05/13/2020 Preadmission evaluation: ER [...] of this encounter (statuses as of 04/01/2022) [facility]11-13-2021 History of Past illness Narrative* Problem Noted Date Resolved Date Encounter for support and coordination of transi tion of care 05/02/2021 07/23/2021 Overview: Hospital discharge summary: Date of admission 05/01/2021 Date of discharge: Facility: [facility] 05/01/2021 presented to the emergency room with [...] 05/02/2021 Overview: HOSPITAL/ER FOLLOW UP Which facility: [facility] Dates of visit: 05/10-05/13/2020 Preadmission evaluation: ER [...] of this encounter (statuses as of 04/12/2022) [facility]11-13-2021 History of Past illness Narrative* Problem Noted Date Resolved Date Encounter for support and coordination of transi tion of care 05/02/2021 07/23/2021 Overview: Hospital discharge summary: Date of admission 05/01/2021 Date of discharge: Facility: [facility] 05/01/2021 presented to the emergency room with [...] 05/02/2021 Overview: HOSPITAL/ER FOLLOW UP Which facility: [facility] Dates of visit: 05/10-05/13/2020 Preadmission evaluation: ER [...] of this encounter (statuses as of 04/19/2022) [facility]11-13-2021 History of Past illness Narrative* Problem Noted Date Resolved Date Encounter for support and coordination of transi tion of care 05/02/2021 07/23/2021 Overview: Hospital discharge summary: Date of admission 05/01/2021 Date of discharge: Facility: [facility] 05/01/2021 presented to the emergency room with [...] 05/02/2021 Overview: HOSPITAL/ER FOLLOW UP Which facility: [facility] Dates of visit: 05/10-05/13/2020 Preadmission evaluation: ER [...] of this encounter (statuses as of 04/23/2022) [facility]11-13-2021 History of Past illness Narrative* Problem Noted Date Resolved Date Encounter for support and coordination of transi tion of care 05/02/2021 07/23/2021 Overview: Hospital discharge summary: Date of admission 05/01/2021 Date of discharge: Facility: [facility] 05/01/2021 presented to the emergency room with [...] 05/02/2021 Overview: HOSPITAL/ER FOLLOW UP Which facility: [facility] Dates of visit: 05/10-05/13/2020 Preadmission evaluation: ER [...] of this encounter (statuses as of 05/07/2022) [facility]11-13-2021 History of Past illness Narrative* Problem Noted Date Resolved Date Encounter for support and coordination of transi tion of care 05/02/2021 07/23/2021 Overview: Hospital discharge summary: Date of admission 05/01/2021 Date of discharge: Facility: [facility] 05/01/2021 presented to the emergency room with [...] 05/02/2021 Overview: HOSPITAL/ER FOLLOW UP Which facility: [facility] Dates of visit: 05/10-05/13/2020 Preadmission evaluation: ER [...] of this encounter (statuses as of 05/07/2022) [facility]-13-2021 History of Past illness Narrative* Problem Noted Date Resolved Date Encounter for support and coordination of transi tion of care 05/02/2021 07/23/2021 Overview: Hospital discharge summary: Date of admission 05/01/2021 Date of discharge: Facility: [facility] 05/01/2021 presented to the emergency room with [...] 05/02/2021 Overview: HOSPITAL/ER FOLLOW UP Which facility: [facility] Dates of visit: 05/10-05/13/2020 Preadmission evaluation: ER [...] of this encounter (statuses as of 05/11/2022) [facility]11-13-2021 History of Past illness Narrative* Problem Noted Date Resolved Date Encounter for support and coordination of transi tion of care 05/02/2021 07/23/2021 Overview: Hospital discharge summary: Date of admission 05/01/2021 Date of discharge: Facility: [facility] 05/01/2021 presented to the emergency room with [...] 05/02/2021 Overview: HOSPITAL/ER FOLLOW UP Which facility: [facility] Dates of visit: 05/10-05/13/2020 Preadmission evaluation: ER [...] of this encounter (statuses as of 05/14/2022) [facility]11-13-2021 History of Past illness Narrative* Problem Noted Date Resolved Date Encounter for support and coordination of transi tion of care 05/02/2021 07/23/2021 Overview: Hospital discharge summary: Date of admission 05/01/2021 Date of discharge: Facility: [facility] 05/01/2021 presented to the emergency room with [...] 05/02/2021 Overview: HOSPITAL/ER FOLLOW UP Which facility: [facility] Dates of visit: 05/10-05/13/2020 Preadmission evaluation: ER [...] of this encounter (statuses as of 05/20/2022) [facility]11-13-2021 History of Past illness Narrative* Problem Noted Date Resolved Date Encounter for support and coordination of transi tion of care 05/02/2021 07/23/2021 Overview: Hospital discharge summary: Date of admission 05/01/2021 Date of discharge: Facility: [facility] 05/01/2021 presented to the emergency room with [...] 05/02/2021 Overview: HOSPITAL/ER FOLLOW UP Which facility: [facility] Dates of visit: 05/10-05/13/2020 Preadmission evaluation: ER [...] of this encounter (statuses as of 05/21/2022) [facility]-13-2021 History of Past illness Narrative* Problem Noted Date Resolved Date Encounter for support and coordination of transi tion of care 05/02/2021 07/23/2021 Overview: Hospital discharge summary: Date of admission 05/01/2021 Date of discharge: Facility: [facility] 05/01/2021 presented to the emergency room with [...] 05/02/2021 Overview: HOSPITAL/ER FOLLOW UP Which facility: [facility] Dates of visit: 05/10-05/13/2020 Preadmission evaluation: ER [...] of this encounter (statuses as of 05/25/2022) [facility]-2021 History of Past illness Narrative* Problem Noted Date Resolved Date Encounter for support and coordination of transi tion of care 05/02/2021 07/23/2021 Overview: Hospital discharge summary: Date of admission 05/01/2021 Date of discharge: Facility: [facility] 05/01/2021 presented to the emergency room with [...] 05/02/2021 Overview: HOSPITAL/ER FOLLOW UP Which facility: [facility] Dates of visit: 05/10-05/13/2020 Preadmission evaluation: ER [...] of this encounter (statuses as of 05/27/2022) [facility]-13-2021 History of Past illness Narrative* Problem Noted Date Resolved Date Encounter for support and coordination of transi tion of care 05/02/2021 07/23/2021 Overview: Hospital discharge summary: Date of admission 05/01/2021 Date of discharge: Facility: [facility] 05/01/2021 presented to the emergency room with [...] 05/02/2021 Overview: HOSPITAL/ER FOLLOW UP Which facility: [facility] Dates of visit: 05/10-05/13/2020 Preadmission evaluation: ER [...] of this encounter (statuses as of 05/31/2022) [facility]11-13-2021 History of Past illness Narrative* Problem Noted Date Resolved Date Encounter for support and coordination of transi tion of care 05/02/2021 07/23/2021 Overview: Hospital discharge summary: Date of admission 05/01/2021 Date of discharge: Facility: [facility] 05/01/2021 presented to the emergency room with [...] 05/02/2021 Overview: HOSPITAL/ER FOLLOW UP Which facility: [facility] Dates of visit: 05/10-05/13/2020 Preadmission evaluation: ER [...] of this encounter (statuses as of 06/03/2022) [facility]-13-2021 History of Past illness Narrative* Problem Noted Date Resolved Date Encounter for support and coordination of transi on of care 05/02/2021 07/23/2021 Overview: Hospital discharge summary: Date of admission 05/01/2021 Date of discharge: Facility: [facility] 05/01/2021 presented to the emergency room with [...] 05/02/2021 Overview: HOSPITAL/ER FOLLOW UP Which facility: [facility] Dates of visit: 05/10-05/13/2020 Preadmission evaluation: ER [...] of this encounter (statuses as of 06/03/2022) [facility]21 History of Past illness Narrative* Problem Noted Date Resolved Date Encounter for support and coordination of transi tion of care 05/02/2021 07/23/2021 Overview: Hospital discharge summary: Date of admission 05/01/2021 Date of discharge: Facility: [facility] 05/01/2021 presented to the emergency room with [...] 05/02/2021 Overview: HOSPITAL/ER FOLLOW UP Which facility: [facility] Dates of visit: 05/10-05/13/2020 Preadmission evaluation: ER [...] of this encounter (statuses as of 06/13/2022) [facility]2021 History of Past illness Narrative* Problem Noted Date Resolved Date Encounter for support and coordination of transi tion of care 05/02/2021 07/23/2021 Overview: Hospital discharge summary: Date of admission 05/01/2021 Date of discharge: Facility: [facility] 05/01/2021 presented to the emergency room with [...] 05/02/2021 Overview: HOSPITAL/ER FOLLOW UP Which facility: [facility] Dates of visit: 05/10-05/13/2020 Preadmission evaluation: ER [...] of this encounter (statuses as of 06/13/2022) [facility]2021 History of Past illness Narrative* Problem Noted Date Resolved Date Encounter for support and coordination of transi tion of care 05/02/2021 07/23/2021 Overview: Hospital discharge summary: Date of admission 05/01/2021 Date of discharge: Facility: [facility] 05/01/2021 presented to the emergency room with [...] 05/02/2021 Overview: HOSPITAL/ER FOLLOW UP Which facility: [facility] Dates of visit: 05/10-05/13/2020 Preadmission evaluation: ER [...] of this encounter (statuses as of 06/22/2022) [facility]-2021 History of Past illness Narrative* Problem Noted Date Resolved Date Encounter for support and coordination of transi tion of care 05/02/2021 07/23/2021 Overview: Hospital discharge summary: Date of admission 05/01/2021 Date of discharge: Facility: [facility] 05/01/2021 presented to the emergency room with [...] 05/02/2021 Overview: HOSPITAL/ER FOLLOW UP Which facility: [facility] Dates of visit: 05/10-05/13/2020 Preadmission evaluation: ER [...] of this encounter (statuses as of 06/23/2022) [facility]-13-2021 History of Past illness Narrative* Problem Noted Date Resolved Date Encounter for support and coordination of transi tion of care 05/02/2021 07/23/2021 Overview: Hospital discharge summary: Date of admission 05/01/2021 Date of discharge: Facility: [facility] 05/01/2021 presented to the emergency room with [...] 05/02/2021 Overview: HOSPITAL/ER FOLLOW UP Which facility: [facility] Dates of visit: 05/10-05/13/2020 Preadmission evaluation: ER [...] of this encounter (statuses as of 06/23/2022) [facility]2021 History of Past illness Narrative* Problem Noted Date Resolved Date Encounter for support and coordination of transi tion of care 05/02/2021 07/23/2021 Overview: Hospital discharge summary: Date of admission 05/01/2021 Date of discharge: Facility: [facility] 05/01/2021 presented to the emergency room with [...] 05/02/2021 Overview: HOSPITAL/ER FOLLOW UP Which facility: [facility] Dates of visit: 05/10-05/13/2020 Preadmission evaluation: ER [...] of this encounter (statuses as of 06/23/2022) [facility]2021 History of Past illness Narrative* Problem Noted Date Resolved Date Encounter for support and coordination of transi tion of care 05/02/2021 07/23/2021 Overview: Hospital discharge summary: Date of admission 05/01/2021 Date of discharge: Facility: [facility] 05/01/2021 presented to the emergency room with [...] 05/02/2021 Overview: HOSPITAL/ER FOLLOW UP Which facility: [facility] Dates of visit: 05/10-05/13/2020 Preadmission evaluation: ER [...] of this encounter (statuses as of 06/25/2022) [facility]21 History of Past illness Narrative* Problem Noted Date Resolved Date Encounter for support and coordination of transi tion of care 05/02/2021 07/23/2021 Overview: Hospital discharge summary: Date of admission 05/01/2021 Date of discharge: Facility: [facility] 05/01/2021 presented to the emergency room with [...] 05/02/2021 Overview: HOSPITAL/ER FOLLOW UP Which facility: [facility] Dates of visit: 05/10-05/13/2020 Preadmission evaluation: ER [...] of this encounter (statuses as of 06/25/2022) [place] [address]-13-2021 History of Past illness Narrative* Problem Noted Date Resolved Date Encounter for support and coordination of transi tion of care 05/02/2021 07/23/2021 Overview: Hospital discharge summary: Date of admission 05/01/2021 Date of discharge: Facility: [facility] 05/01/2021 presented to the emergency room with [...] 05/02/2021 Overview: HOSPITAL/ER FOLLOW UP Which facility: [facility] Dates of visit: 05/10-05/13/2020 Preadmission evaluation: ER [...] of this encounter (statuses as of 06/28/2022) [facility]2021 History of Past illness Narrative* Problem Noted Date Resolved Date Encounter for support and coordination of transi tion of care 05/02/2021 07/23/2021 Overview: Hospital discharge summary: Date of admission 05/01/2021 Date of discharge: Facility: [facility] 05/01/2021 presented to the emergency room with [...] 05/02/2021 Overview: HOSPITAL/ER FOLLOW UP Which facility: [facility] Dates of visit: 05/10-05/13/2020 Preadmission evaluation: ER [...] of this encounter (statuses as of 07/14/2022) [facility]21 History of Past illness Narrative* Problem Noted Date Resolved Date Encounter for support and coordination of transi tion of care 05/02/2021 07/23/2021 Overview: Hospital discharge summary: Date of admission 05/01/2021 Date of discharge: Facility: [facility] 05/01/2021 presented to the emergency room with [...] 05/02/2021 Overview: HOSPITAL/ER FOLLOW UP Which facility: [facility] Dates of visit: 05/10-05/13/2020 Preadmission evaluation: ER [...] of this encounter (statuses as of 07/16/2022) [facility]21 History of Past illness Narrative* Problem Noted Date Resolved Date Encounter for support and coordination of transi tion of care 05/02/2021 07/23/2021 Overview: Hospital discharge summary: Date of admission 05/01/2021 Date of discharge: Facility: [facility] 05/01/2021 presented to the emergency room with [...] 05/02/2021 Overview: HOSPITAL/ER FOLLOW UP Which facility: [facility] Dates of visit: 05/10-05/13/2020 Preadmission evaluation: ER [...] of this encounter (statuses as of 07/22/2022) [facility]2021 History of Past illness Narrative* Problem Noted Date Resolved Date Encounter for support and coordination of transi tion of care 05/02/2021 07/23/2021 Overview: Hospital discharge summary: Date of admission 05/01/2021 Date of discharge: Facility: [facility] 05/01/2021 presented to the emergency room with [...] 05/02/2021 Overview: HOSPITAL/ER FOLLOW UP Which facility: [facility] Dates of visit: 05/10-05/13/2020 Preadmission evaluation: ER [...] of this encounter (statuses as of 08/06/2022) [facility]21 History of Past illness Narrative* Problem Noted Date Resolved Date Encounter for support and coordination of transi tion of care 05/02/2021 07/23/2021 Overview: Hospital discharge summary: Date of admission 05/01/2021 Date of discharge: Facility: [facility] 05/01/2021 presented to the emergency room with [...] 05/02/2021 Overview: HOSPITAL/ER FOLLOW UP Which facility: [facility] Dates of visit: 05/10-05/13/2020 Preadmission evaluation: ER [...] of this encounter (statuses as of 08/13/2022) [facility]21 History of Past illness Narrative* Problem Noted Date Resolved Date Encounter for support and coordination of transi tion of care 05/02/2021 07/23/2021 Overview: Hospital discharge summary: Date of admission 05/01/2021 Date of discharge: Facility: [facility] 05/01/2021 presented to the emergency room with [...] 05/02/2021 Overview: HOSPITAL/ER FOLLOW UP Which facility: [facility] Dates of visit: 05/10-05/13/2020 Preadmission evaluation: ER [...] of this encounter (statuses as of 08/16/2022) [facility]21 History of Past illness Narrative* Problem Noted Date Resolved Date Encounter for support and coordination of transi tion of care 05/02/2021 07/23/2021 Overview: Hospital discharge summary: Date of admission 05/01/2021 Date of discharge: Facility: [facility] 05/01/2021 presented to the emergency room with [...] 05/02/2021 Overview: HOSPITAL/ER FOLLOW UP Which facility: [facility] Dates of visit: 05/10-05/13/2020 Preadmission evaluation: ER [...] of this encounter (statuses as of 08/17/2022) [facility]21 History of Past illness Narrative* Problem Noted Date Resolved Date Encounter for support and coordination of transi tion of care 05/02/2021 07/23/2021 Overview: Hospital discharge summary: Date of admission 05/01/2021 Date of discharge: Facility: [facility] 05/01/2021 presented to the emergency room with [...] 05/02/2021 Overview: HOSPITAL/ER FOLLOW UP Which facility: [facility] Dates of visit: 05/10-05/13/2020 Preadmission evaluation: ER [...] of this encounter (statuses as of 08/18/2022) [facility] History of Past illness Narrative* Problem Noted Date Resolved Date Encounter for support and coordination of transi tion of care 05/02/2021 07/23/2021 Overview: Hospital discharge summary: Date of admission 05/01/2021 Date of discharge: Facility: [facility] 05/01/2021 presented to the emergency room with [...] 05/02/2021 Overview: HOSPITAL/ER FOLLOW UP Which facility: [facility] Dates of visit: 05/10-05/13/2020 Preadmission evaluation: ER [...] of this encounter (statuses as of 08/26/2022) [facility] History of Past illness Narrative* Problem Noted Date Resolved Date Encounter for support and coordination of transi tion of care 05/02/2021 07/23/2021 Overview: Hospital discharge summary: Date of admission 05/01/2021 Date of discharge: Facility: [facility] 05/01/2021 presented to the emergency room with [...] 05/02/2021 Overview: HOSPITAL/ER FOLLOW UP Which facility: [facility] Dates of visit: 05/10-05/13/2020 Preadmission evaluation: ER [...] of this encounter (statuses as of 08/27/2022) [facility]21 History of Past illness Narrative* Problem Noted Date Resolved Date Encounter for support and coordination of transi tion of care 05/02/2021 07/23/2021 Overview: Hospital discharge summary: Date of admission 05/01/2021 Date of discharge: Facility: [facility] 05/01/2021 presented to the emergency room with [...] 05/02/2021 Overview: HOSPITAL/ER FOLLOW UP Which facility: [facility] Dates of visit: 05/10-05/13/2020 Preadmission evaluation: ER [...] of this encounter (statuses as of 09/01/2022) [facility] History of Past illness Narrative* Problem Noted Date Resolved Date Encounter for support and coordination of transi tion of care 05/02/2021 07/23/2021 Overview: Hospital discharge summary: Date of admission 05/01/2021 Date of discharge: Facility: [facility] 05/01/2021 presented to the emergency room with [...] 05/02/2021 Overview: HOSPITAL/ER FOLLOW UP Which facility: [facility] Dates of visit: 05/10-05/13/2020 Preadmission evaluation: ER [...] of this encounter (statuses as of 09/16/2022) [facility] History of Past illness Narrative* Problem Noted Date Resolved Date Encounter for support and coordination of transi tion of care 05/02/2021 07/23/2021 Overview: Hospital discharge summary: Date of admission 05/01/2021 Date of discharge: Facility: [facility] 05/01/2021 presented to the emergency room with [...] 05/02/2021 Overview: HOSPITAL/ER FOLLOW UP Which facility: [facility] Dates of visit: 05/10-05/13/2020 Preadmission evaluation: ER [...] of this encounter (statuses as of 10/09/2022) [facility] History of Past illness Narrative* Problem Noted Date Resolved Date Encounter for support and coordination of transi tion of care 05/02/2021 07/23/2021 Overview: Hospital discharge summary: Date of admission 05/01/2021 Date of discharge: Facility: [facility] 05/01/2021 presented to the emergency room with [...] 05/02/2021 Overview: HOSPITAL/ER FOLLOW UP Which facility: [facility] Dates of visit: 05/10-05/13/2020 Preadmission evaluation: ER [...] of this encounter (statuses as of 10/14/2022) [facility] History of Past illness Narrative* Problem Noted Date Resolved Date Encounter for support and coordination of transi tion of care 05/02/2021 07/23/2021 Overview: Hospital discharge summary: Date of admission 05/01/2021 Date of discharge: Facility: [facility] 05/01/2021 presented to the emergency room with [...] 05/02/2021 Overview: HOSPITAL/ER FOLLOW UP Which facility: [facility] Dates of visit: 05/10-05/13/2020 Preadmission evaluation: ER [...] of this encounter (statuses as of 10/21/2022) [facility] History of Past illness Narrative* Problem Noted Date Resolved Date Encounter for support and coordination of transi tion of care 05/02/2021 07/23/2021 Overview: Hospital discharge summary: Date of admission 05/01/2021 Date of discharge: Facility: [facility] 05/01/2021 presented to the emergency room with [...] 05/02/2021 Overview: HOSPITAL/ER FOLLOW UP Which facility: [facility] Dates of visit: 05/10-05/13/2020 Preadmission evaluation: ER [...] of this encounter (statuses as of 10/27/2022) [facility] History of Past illness Narrative* Problem Noted Date Resolved Date Encounter for support and coordination of transi tion of care 05/02/2021 07/23/2021 Overview: Hospital discharge summary: Date of admission 05/01/2021 Date of discharge: Facility: [facility] 05/01/2021 presented to the emergency room with [...] 05/02/2021 Overview: HOSPITAL/ER FOLLOW UP Which facility: [facility] Dates of visit: 05/10-05/13/2020 Preadmission evaluation: ER [...] of this encounter (statuses as of 11/22/2022) [facility] History of Past illness Narrative* Problem Noted Date Resolved Date Encounter for support and coordination of transi tion of care 05/02/2021 07/23/2021 Overview: Hospital discharge summary: Date of admission 05/01/2021 Date of discharge: Facility: [facility] 05/01/2021 presented to the emergency room with [...] 05/02/2021 Overview: HOSPITAL/ER FOLLOW UP Which facility: [facility] Dates of visit: 05/10-05/13/2020 Preadmission evaluation: ER [...] of this encounter (statuses as of 11/23/2022) [facility]11-13-2021 History of Past illness Narrative* Problem Noted Date Resolved Date Encounter for support and coordination of transi tion of care 05/02/2021 07/23/2021 Overview: Hospital discharge summary: Date of admission 05/01/2021 Date of discharge: Facility: [facility] 05/01/2021 presented to the emergency room with [...] 05/02/2021 Overview: HOSPITAL/ER FOLLOW UP Which facility: [facility] Dates of visit: 05/10-05/13/2020 Preadmission evaluation: ER [...] of this encounter (statuses as of 12/10/2022) [facility]11-13-2021 History of Past illness Narrative* Problem Noted Date Resolved Date Encounter for support and coordination of transi tion of care 05/02/2021 07/23/2021 Overview: Hospital discharge summary: Date of admission 05/01/2021 Date of discharge: Facility: [facility] 05/01/2021 presented to the emergency room with [...] 05/02/2021 Overview: HOSPITAL/ER FOLLOW UP Which facility: [facility] Dates of visit: 05/10-05/13/2020 Preadmission evaluation: ER [...] of this encounter (statuses as of 12/10/2022) [facility]11-13-2021 History of Past illness Narrative* Problem Noted Date Resolved Date Encounter for support and coordination of transi tion of care 05/02/2021 07/23/2021 Overview: Hospital discharge summary: Date of admission 05/01/2021 Date of discharge: Facility: [facility] 05/01/2021 presented to the emergency room with [...] 05/02/2021 Overview: HOSPITAL/ER FOLLOW UP Which facility: [facility] Dates of visit: 05/10-05/13/2020 Preadmission evaluation: ER [...] of this encounter (statuses as of 12/10/2022) [facility]11-13-2021 History of Past illness Narrative* Problem Noted Date Resolved Date Encounter for support and coordination of transi tion of care 05/02/2021 07/23/2021 Overview: Hospital discharge summary: Date of admission 05/01/2021 Date of discharge: Facility: [facility] 05/01/2021 presented to the emergency room with [...] 05/02/2021 Overview: HOSPITAL/ER FOLLOW UP Which facility: [facility] Dates of visit: 05/10-05/13/2020 Preadmission evaluation: ER [...] of this encounter (statuses as of 12/16/2022) [facility]11-[facility]-2021 History of Past illness Narrative* Problem Noted Date Resolved Date Encounter for support and coordination of transi tion of care 05/02/2021 07/23/2021 Overview: Hospital discharge summary: Date of admission 05/01/2021 Date of discharge: Facility: [facility] 05/01/2021 presented to the emergency room with [...] 05/02/2021 Overview: HOSPITAL/ER FOLLOW UP Which facility: [facility] Dates of visit: 05/10-05/13/2020 Preadmission evaluation: ER [...] of this encounter (statuses as of 12/16/2022) [facility]11-13-2021 History of Past illness Narrative* Problem Noted Date Resolved Date Encounter for support and coordination of transi tion of care 05/02/2021 07/23/2021 Overview: Hospital discharge summary: Date of admission 05/01/2021 Date of discharge: Facility: [facility] 05/01/2021 presented to the emergency room with [...] 05/02/2021 Overview: HOSPITAL/ER FOLLOW UP Which facility: [facility] Dates of visit: 05/10-05/13/2020 Preadmission evaluation: ER [...] of this encounter (statuses as of 12/23/2022) [facility]-2021 History of Past illness Narrative* Problem Noted Date Resolved Date Encounter for support and coordination of transi tion of care 05/02/2021 07/23/2021 Overview: Hospital discharge summary: Date of admission 05/01/2021 Date of discharge: Facility: [facility] 05/01/2021 presented to the emergency room with [...] 05/02/2021 Overview: HOSPITAL/ER FOLLOW UP Which facility: [facility] Dates of visit: 05/10-05/13/2020 Preadmission evaluation: ER [...] of this encounter (statuses as of 12/24/2022) [facility]11-13-2021 History of Past illness Narrative* Problem Noted Date Diagnosed Date Resolved Date Encounter for support and co ordination of transition of care 05/02/2021 07/23/2021 Overview: Hospital discharge summary: Date of admission 05/01/2021 Date of discharge: Facility: [facility] 05/01/2021 presented to the emergency room with [...] 05/02/2021 Overview: HOSPITAL/ER FOLLOW UP Which facility: [facility] Dates of visit: 05/10-05/13/2020 Preadmission evaluation: ER [...] of this encounter (statuses as of 01/05/2023) [facility]-2021 History of Past illness Narrative* Problem Noted Date Diagnosed Date Resolved Date Encounter for support and co ordination of transition of care 05/02/2021 07/23/2021 Overview: Hospital discharge summary: Date of admission 05/01/2021 Date of discharge: Facility: [facility] 05/01/2021 presented to the emergency room with [...] 05/02/2021 Overview: HOSPITAL/ER FOLLOW UP Which facility: [facility] Dates of visit: 05/10-05/13/2020 Preadmission evaluation: ER [...] of this encounter (statuses as of 01/05/2023) [facility]-2021 History of Past illness Narrative* Problem Noted Date Diagnosed Date Resolved Date Encounter for support and co ordination of transition of care 05/02/2021 07/23/2021 Overview: Hospital discharge summary: Date of admission 05/01/2021 Date of discharge: Facility: [facility] 05/01/2021 presented to the emergency room with [...] 05/02/2021 Overview: HOSPITAL/ER FOLLOW UP Which facility: [facility] Dates of visit: 05/10-05/13/2020 Preadmission evaluation: ER [...] of this encounter (statuses as of 01/07/2023) [facility]-2021 History of Past illness Narrative* Problem Noted Date Diagnosed Date Resolved Date Encounter for support and co ordination of transition of care 05/02/2021 07/23/2021 Overview: Hospital discharge summary: Date of admission 05/01/2021 Date of discharge: Facility: [facility] 05/01/2021 presented to the emergency room with [...] 05/02/2021 Overview: HOSPITAL/ER FOLLOW UP Which facility: [facility] Dates of visit: 05/10-05/13/2020 Preadmission evaluation: ER [...] of this encounter (statuses as of 01/14/2023) [facility]-2021 History of Past illness Narrative* Problem Noted Date Diagnosed Date Resolved Date Encounter for support and co ordination of transition of care 05/02/2021 07/23/2021 Overview: Hospital discharge summary: Date of admission 05/01/2021 Date of discharge: Facility: [facility] 05/01/2021 presented to the emergency room with [...] 05/02/2021 Overview: HOSPITAL/ER FOLLOW UP Which facility: [facility] Dates of visit: 05/10-05/13/2020 Preadmission evaluation: ER [...] of this encounter (statuses as of 01/29/2023) [facility]-2021 History of Past illness Narrative* Problem Noted Date Diagnosed Date Resolved Date Encounter for support and co ordination of transition of care 05/02/2021 07/23/2021 Overview: Hospital discharge summary: Date of admission 05/01/2021 Date of discharge: Facility: [facility] 05/01/2021 presented to the emergency room with [...] 05/02/2021 Overview: HOSPITAL/ER FOLLOW UP Which facility: [facility] Dates of visit: 05/10-05/13/2020 Preadmission evaluation: ER [...] of this encounter (statuses as of 01/31/2023) [facility]11-[facility]-2021 History of Past illness Narrative* Problem Noted Date Diagnosed Date Resolved Date Encounter for support and co ordination of transition of care 05/02/2021 07/23/2021 Overview: Hospital discharge summary: Date of admission 05/01/2021 Date of discharge: Facility: [facility] 05/01/2021 presented to the emergency room with [...] 05/02/2021 Overview: HOSPITAL/ER FOLLOW UP Which facility: [facility] Dates of visit: 05/10-05/13/2020 Preadmission evaluation: ER [...] of this encounter (statuses as of 02/01/2023) [facility]21 History of Past illness Narrative* Problem Noted Date Diagnosed Date Resolved Date Encounter for support and co ordination of transition of care 05/02/2021 07/23/2021 Overview: Hospital discharge summary: Date of admission 05/01/2021 Date of discharge: Facility: [facility] 05/01/2021 presented to the emergency room with [...] 05/02/2021 Overview: HOSPITAL/ER FOLLOW UP Which facility: [facility] Dates of visit: 05/10-05/13/2020 Preadmission evaluation: ER [...] of this encounter (statuses as of 02/03/2023) [facility] History of Past illness Narrative* Problem Noted Date Diagnosed Date Resolved Date Encounter for support and co ordination of transition of care 05/02/2021 07/23/2021 Overview: Hospital discharge summary: Date of admission 05/01/2021 Date of discharge: Facility: [facility] 05/01/2021 presented to the emergency room with [...] 05/02/2021 Overview: HOSPITAL/ER FOLLOW UP Which facility: [facility] Dates of visit: 05/10-05/13/2020 Preadmission evaluation: ER [...] of this encounter (statuses as of 02/08/2023) [facility] History of Past illness Narrative* Problem Noted Date Diagnosed Date Resolved Date Encounter for support and co ordination of transition of care 05/02/2021 07/23/2021 Overview: Hospital discharge summary: Date of admission 05/01/2021 Date of discharge: Facility: [facility] 05/01/2021 presented to the emergency room with [...] 05/02/2021 Overview: HOSPITAL/ER FOLLOW UP Which facility: [facility] Dates of visit: 05/10-05/13/2020 Preadmission evaluation: ER [...] of this encounter (statuses as of 02/14/2023) [facility] History of Past illness Narrative* Problem Noted Date Diagnosed Date Resolved Date Encounter for support and co ordination of transition of care 05/02/2021 07/23/2021 Overview: Hospital discharge summary: Date of admission 05/01/2021 Date of discharge: Facility: [facility] 05/01/2021 presented to the emergency room with [...] 05/02/2021 Overview: HOSPITAL/ER FOLLOW UP Which facility: [facility] Dates of visit: 05/10-05/13/2020 Preadmission evaluation: ER [...] of this encounter (statuses as of 02/15/2023) [facility] History of Past illness Narrative* Problem Noted Date Diagnosed Date Resolved Date Encounter for support and co ordination of transition of care 05/02/2021 07/23/2021 Overview: Hospital discharge summary: Date of admission 05/01/2021 Date of discharge: Facility: [facility] 05/01/2021 presented to the emergency room with [...] 05/02/2021 Overview: HOSPITAL/ER FOLLOW UP Which facility: [facility] Dates of visit: 05/10-05/13/2020 Preadmission evaluation: ER [...] of this encounter (statuses as of 02/16/2023) [facility]21 History of Past illness Narrative* Problem Noted Date Diagnosed Date Resolved Date Encounter for support and co ordination of transition of care 05/02/2021 07/23/2021 Overview: Hospital discharge summary: Date of admission 05/01/2021 Date of discharge: Facility: [facility] 05/01/2021 presented to the emergency room with [...] 05/02/2021 Overview: HOSPITAL/ER FOLLOW UP Which facility: [facility] Dates of visit: 05/10-05/13/2020 Preadmission evaluation: ER [...] of this encounter (statuses as of 03/01/2023) [facility] History of Past illness Narrative* Problem Noted Date Diagnosed Date Resolved Date Encounter for support and co ordination of transition of care 05/02/2021 07/23/2021 Overview: Hospital discharge summary: Date of admission 05/01/2021 Date of discharge: Facility: [facility] 05/01/2021 presented to the emergency room with [...] 05/02/2021 Overview: HOSPITAL/ER FOLLOW UP Which facility: [facility] Dates of visit: 05/10-05/13/2020 Preadmission evaluation: ER [...] of this encounter (statuses as of 03/09/2023) [facility] History of Past illness Narrative* Problem Noted Date Diagnosed Date Resolved Date Encounter for support and co ordination of transition of care 05/02/2021 07/23/2021 Overview: Hospital discharge summary: Date of admission 05/01/2021 Date of discharge: Facility: [facility] 05/01/2021 presented to the emergency room with [...] 05/02/2021 Overview: HOSPITAL/ER FOLLOW UP Which facility: [facility] Dates of visit: 05/10-05/13/2020 Preadmission evaluation: ER [...] of this encounter (statuses as of 03/12/2023) [facility] History of Past illness Narrative* Problem Noted Date Diagnosed Date Resolved Date Encounter for support and co ordination of transition of care 05/02/2021 07/23/2021 Overview: Hospital discharge summary: Date of admission 05/01/2021 Date of discharge: Facility: [facility] 05/01/2021 presented to the emergency room with [...] 05/02/2021 Overview: HOSPITAL/ER FOLLOW UP Which facility: [facility] Dates of visit: 05/10-05/13/2020 Preadmission evaluation: ER [...] of this encounter (statuses as of 04/25/2023) [facility] History of Past illness Narrative* Problem Noted Date Diagnosed Date Resolved Date Encounter for support and co ordination of transition of care 05/02/2021 07/23/2021 Overview: Hospital discharge summary: Date of admission 05/01/2021 Date of discharge: Facility: [facility] 05/01/2021 presented to the emergency room with [...] 05/02/2021 Overview: HOSPITAL/ER FOLLOW UP Which facility: [facility] Dates of visit: 05/10-05/13/2020 Preadmission evaluation: ER [...] of this encounter (statuses as of 04/25/2023) [facility] History of Past illness Narrative* Problem Noted Date Diagnosed Date Resolved Date Encounter for support and co ordination of transition of care 05/02/2021 07/23/2021 Overview: Hospital discharge summary: Date of admission 05/01/2021 Date of discharge: Facility: [facility] 05/01/2021 presented to the emergency room with [...] 05/02/2021 Overview: HOSPITAL/ER FOLLOW UP Which facility: [facility] Dates of visit: 05/10-05/13/2020 Preadmission evaluation: ER [...] of this encounter (statuses as of 04/25/2023) [facility] History of Past illness Narrative* Problem Noted Date Diagnosed Date Resolved Date Encounter for support and co ordination of transition of care 05/02/2021 07/23/2021 Overview: Hospital discharge summary: Date of admission 05/01/2021 Date of discharge: Facility: [facility] 05/01/2021 presented to the emergency room with [...] 05/02/2021 Overview: HOSPITAL/ER FOLLOW UP Which facility: [facility] Dates of visit: 05/10-05/13/2020 Preadmission evaluation: ER [...] of this encounter (statuses as of 05/11/2023) [facility] History of Past illness Narrative* Problem Noted Date Diagnosed Date Resolved Date Encounter for support and co ordination of transition of care 05/02/2021 07/23/2021 Overview: Hospital discharge summary: Date of admission 05/01/2021 Date of discharge: Facility: [facility] 05/01/2021 presented to the emergency room with [...] 05/02/2021 Overview: HOSPITAL/ER FOLLOW UP Which facility: [facility] Dates of visit: 05/10-05/13/2020 Preadmission evaluation: ER [...] of this encounter (statuses as of 05/20/2023) [facility] History of Past illness Narrative* Problem Noted Date Diagnosed Date Resolved Date Encounter for support and co ordination of transition of care 05/02/2021 07/23/2021 Overview: Hospital discharge summary: Date of admission 05/01/2021 Date of discharge: Facility: [facility] 05/01/2021 presented to the emergency room with [...] 05/02/2021 Overview: HOSPITAL/ER FOLLOW UP Which facility: [facility] Dates of visit: 05/10-05/13/2020 Preadmission evaluation: ER [...] of gangrene, enlarged liver with fatty infiltration [facility] course: As above patient was admitted, IV fluid, pain management, taken to surgery. Patient had successful recovery and discharged in a stable condition. Instructions were to return to activity but no driving while taking narcotic medication Medication Reconciliation: Completed Patient was given oxycodone 5 mg every 12 hours #10 documented as of this encounter (statuses as of 05/25/2023) [facility] Diagnosis Vitamin D deficiency Unspecified vitamin D deficiency [facility] Diagnosis NO SHOW- Primary [facility] Diagnosis Encounter for screening mammogram for breast cancer [facility] Diagnosis Abnormal mammogram- Primary Abnormal mammogram, unspecified [facility] Diagnosis Inconclusive mammogram- Primary [facility] Diagnosis NO SHOW- Primary [facility] Diagnosis Radiculopathy, lumbar region- Primary Thoracic or lumbosacral neuritis or radiculitis, unspecified [facility] Diagnosis Alcohol abuse- Primary Alcohol abuse, unspecified Delusional disorder (HCC) Gastroesophageal reflux disease without esophagitis Esophageal reflux Hyperglycemia Other abnormal glucose Primary hypertension Unspecified essential hypertension [facility] Diagnosis Essential hypertension Unspecified essential hypertension [facility] Diagnosis Inconclusive mammogram [facility] Diagnosis Alcohol abuse- Primary Alcohol abuse, [...] of mild degree [facility] Diagnosis History of colonic polyps- Primary Personal history of colonic polyps Chronic active hepatitis C (HCC) Gastroesophageal reflux disease, unspecified whether esophagitis present documented in this encounter [facility] note* Diagnosis Chronic active hepatitis C (HCC) [facility] Diagnosis History of colonic polyps Personal history of colonic polyps [facility] Diagnosis Radiculopathy, lumbar region- Primary Thoracic or lumbosacral neuritis or radiculitis, unspecified Spinal stenosis of lumbar region without neurogenic claudication Spinal stenosis, lumbar region, without neurogenic claudication Lumbar spondylosis Lumbosacral spondylosis without myelopathy Chronic bilateral low back pain without sciatica History of urinary urgency Personal history of other disorder of urinary system Cervical spondylosis without myelopathy [facility] Diagnosis Cervical spondylosis without myelopathy- Primary Radiculopathy, lumbar region Thoracic or lumbosacral neuritis or radiculitis, unspecified Spinal stenosis, lumbar region, without neurogenic claudication Cervical spondylosis without myelopathy Cervical spondylosis without myelopathy [facility] Diagnosis Urge incontinence- Primary Stress incontinence, female Female stress incontinence Radiculopathy, lumbar region Thoracic or lumbosacral neuritis or radiculitis, unspecified Spinal stenosis, lumbar region, without neurogenic claudication Cervical spondylosis without myelopathy Cervical spondylosis without myelopathy [facility] Diagnosis Other chronic pain- Primary Radiculopathy, lumbar region Thoracic or lumbosacral neuritis or radiculitis, unspecified Spinal stenosis, lumbar region, without neurogenic claudication Cervical spondylosis without myelopathy Cervical spondylosis without myelopathy [facility] Diagnosis Closed fracture of upper extremity, unspecified laterality, initial encounter- Primary Radiculopathy, lumbar region Thoracic or lumbosacral neuritis or radiculitis, unspecified Spinal stenosis, lumbar region, without neurogenic claudication Cervical spondylosis without myelopathy Cervical spondylosis without myelopathy [facility] Diagnosis Vaginal discharge- Primary Leukorrhea, not specified as infective Cervical spondylosis without myelopathy Cervical spondylosis without myelopathy [facility] Diagnosis Cervical spondylosis without myelopathy- Primary Cervical spondylosis without myelopathy [facility] Diagnosis Essential hypertension Unspecified essential hypertension Low serum potassium Hyperlipidemia, mixed Mixed hyperlipidemia Fibromyalgia Mylagia and myositis, unspecified Cervical spondylosis without myelopathy [facility] Diagnosis Cervical spondylosis without myelopathy- Primary [facility] Diagnosis Essential hypertension- Primary Unspecified [...] acquired Unspecified hypothyroidism [facility] Diagnosis Radiculopathy, lumbar region Thoracic or lumbosacral neuritis or radiculitis, unspecified Spinal stenosis, lumbar region, without neurogenic claudication [facility] Vitamin D deficiency Unspecified vitamin D deficiency [facility] Diagnosis Dehydration- Primary Postural dizziness [...] Other speech disturbance [facility] Diagnosis Cervical spondylosis without myelopathy- Primary [facility] Diagnosis Chronic hepatitis C without hepatic coma (HCC)- Primary Chronic hepatitis C without mention of hepatic coma Cervical spondylosis without myelopathy Cervical spondylosis without myelopathy [facility] Diagnosis Chronic hepatitis C without hepatic coma (HCC)- Primary Chronic hepatitis C without mention of hepatic coma Gastroesophageal reflux disease, unspecified whether esophagitis present Cervical spondylosis without myelopathy Cervical spondylosis without myelopathy [facility] Diagnosis Radiculopathy, lumbar region Thoracic or lumbosacral neuritis or radiculitis, unspecified Cervical spondylosis without myelopathy [facility] Diagnosis Alcohol abuse, in remission- Primary [...] spondylosis without myelopathy [facility] Diagnosis Tobacco abuse Tobacco use disorder Cervical spondylosis without myelopathy [facility] Diagnosis Essential hypertension Unspecified essential hypertension [facility] Diagnosis Cognitive impairment- Primary Unspecified persistent mental disorders due to conditions classified elsewhere Alcohol abuse, in remission Nondependent alcohol abuse, in remission Polysubstance abuse (HCC) Other, mixed, or unspecified nondependent drug abuse, unspecified Polypharmacy Encounter for long-term (current) use of other medications [facility] Diagnosis Hospital discharge follow-up- Primary Other [...] of hepatic coma [facility] Diagnosis Vaginal discharge- Primary Leukorrhea, not specified as infective Screening examination for STD (sexually transmitted disease) Screening examination for venereal disease [facility] Diagnosis Chronic left-sided low back pain with sciatica, sciatica laterality unspecified- Primary Spinal stenosis of lumbar region without neurogenic claudication Spinal stenosis, lumbar region, without neurogenic claudication Lumbar spondylosis Lumbosacral spondylosis without myelopathy Fibromyalgia Mylagia and myositis, unspecified Other chronic pain [facility] Diagnosis Spinal stenosis of lumbar region without neurogenic claudication Spinal stenosis, lumbar region, without neurogenic claudication [facility] Diagnosis Radiculopathy, lumbar region Thoracic or lumbosacral neuritis or radiculitis, unspecified [facility] Diagnosis COPD (chronic obstructive pulmonary disease) with chronic bronchitis (HCC)- Primary Obstructive chronic bronchitis without exacerbation [facility] Diagnosis Radiculopathy, lumbar region Thoracic or lumbosacral neuritis or radiculitis, unspecified [facility] Diagnosis Hyperlipidemia, mixed Mixed hyperlipidemia Fibromyalgia Mylagia and myositis, unspecified Stress incontinence Female stress incontinence Alcohol abuse, in remission Nondependent alcohol abuse, in remission Chronic hepatitis C without hepatic coma (HCC) Chronic hepatitis C without mention of hepatic coma Memory impairment Memory loss Iron deficiency anemia, unspecified iron deficiency anemia type [facility] Diagnosis Cognitive impairment, mild, so [...] or radiculitis, unspecified [facility] Diagnosis Vitamin D deficiency Unspecified vitamin D deficiency [facility] Diagnosis Cognitive impairment- Primary Unspecified persistent mental disorders due to conditions classified elsewhere Alcohol abuse, in remission Nondependent alcohol abuse, in remission Polysubstance abuse (HCC) Other, mixed, or unspecified nondependent drug abuse, unspecified Polypharmacy Encounter for long-term (current) use of other medications [facility] Diagnosis Chronic left-sided low back pain with sciatica, sciatica laterality unspecified- Primary DDD (degenerative disc disease), lumbar Degeneration of lumbar or lumbosacral intervertebral disc Lumbar spondylosis Lumbosacral spondylosis without myelopathy Gait instability Abnormality of gait Weight loss Loss of weight [facility] Diagnosis Lumbar spondylosis- Primary Lumbosacral spondylosis without myelopathy Cervical spondylosis without myelopathy Spinal stenosis of lumbar region without neurogenic claudication Spinal stenosis, lumbar region, without neurogenic claudication Myofascial pain Mylagia and myositis, unspecified documented in this encounter [facility] note* Diagnosis Mastodynia of left breast- Primary Dense breast tissue Vaginal discharge Leukorrhea, not specified as infective Vaginal odor Unspecified symptom associated with female genital organs [facility] Diagnosis Hypertension, essential- Primary Unspecified essential hypertension [facility] Diagnosis Primary hypertension- Primary Unspecified essential hypertension Unspecified essential hypertension [facility] Diagnosis Cognitive impairment- Primary Unspecified persistent [...] depression type Hallucinations [facility] Diagnosis Displacement of lumbar intervertebral disc without myelopathy- Primary Radiculopathy, lumbar region Thoracic or lumbosacral neuritis or radiculitis, unspecified documented in this encounter [facility] note* Diagnosis Displacement of lumbar intervertebral disc without myelopathy- Primary Radiculopathy, lumbar region Thoracic or lumbosacral neuritis or radiculitis, unspecified Displacement of lumbar intervertebral disc without myelopathy Radiculopathy, lumbar region Thoracic or lumbosacral neuritis or radiculitis, unspecified [facility] Diagnosis Hyperlipidemia, mixed Mixed hyperlipidemia Fibromyalgia [...] or radiculitis, unspecified [facility]* Diagnosis Vitamin D deficiency Unspecified vitamin D deficiency [facility] Diagnosis Fibrocystic breast changes, bilateral- Primary Mastodynia of left breast Dense breast tissue Family history of breast cancer Family history of malignant neoplasm of breast Family history of ovarian cancer Family history of malignant neoplasm of ovary [facility] Diagnosis Lumbar radiculopathy- Primary Thoracic or lumbosacral neuritis or radiculitis, unspecified Primary osteoarthritis of right hip Primary localized osteoarthrosis, pelvic region and thigh [facility] Diagnosis Primary osteoarthritis of right hip- Primary Primary localized osteoarthrosis, pelvic region and thigh Lumbar radiculopathy Thoracic or lumbosacral neuritis or radiculitis, unspecified documented in this encounter [facility] note* Diagnosis Breast pain Mastodynia documented in this encounter [facility] note* Diagnosis Transient cerebral ischemia, unspecified type Balance problem Other symptoms involving nervous and musculoskeletal systems Falls frequently Personal history of fall documented in this encounter [facility] note* Diagnosis Breast pain Mastodynia [facility] Diagnosis Weakness of both hands- Primary Numbness and tingling in both hands Complaining of cold hands documented in this encounter [facility] for referral (narrative)* Diagnostic Procedure Only (Routine) - Authorized Specialty Diagnoses / Procedures Referred By Contjaye t Referred To Contact [facility] Diagnoses Abnormal mammogram Procedures US BREAST LTD LT US BREAST UNI REAL TIME WITH IMAGE LIMITED Mitul Abbott MD [address] [place] [address] [facility] [address] [place] [address] Referral ID Status Reason Start Date Expiration Date Visits Requested Visits Authorized [id number] Authorized Auto-Generat ed Referral 10/02/2021 11/01/2022 1 1 * Diagnostic Procedure Only (Routine) - Authorized Specialty Diagnoses / Procedures Referred By Contac t Referred To Contact [facility] Diagnoses Abnormal mammogram Procedures US BREAST LTD RT US BREAST UNI REAL TIME WITH IMAGE LIMITED Mitul Abbott MD [address] [place] [address] [facility] [address] [place] [address] Referral ID Status Reason Start Date Expiration Date Visits Requested Visits Authorized [id number] Authorized Auto-Generat ed Referral 10/02/2021 11/01/2022 1 1 * Diagnostic Procedure Only (Routine) - Authorized Specialty Diagnoses / Procedures Referred By Contac t Referred To Contact [facility] IM[facility] Diagnoses Abnormal mammogram Procedures SHILOH DIAGNOSTIC BILAT DIAGNOSTIC MAMMOGRAPHY COMPUTER-AIDED DETCJ BI Mitul Abbott MD [address] [place] [address] [facility] [address] [place] [address] Referral ID Status Reason Start Date Expiration Date Visits Requested Visits Authorized [id number] Authorized Auto-Generat ed Referral 10/02/2021 11/01/2022 1 1 [facility] for referral (narrative)* Diagnostic Procedure Only (Routine) - Pending Review Specialty Diagnoses / Procedures Referred By Contac t Referred To Contact BR IMAGING Diagnoses Inconclusive mammogram Procedures US BREAST LTD RT US BREAST UNI REAL TIME WITH IMAGE LIMITED Jaimee Palomares PA-C [address] [place] [address] [facility] [address] [place] [address] Referral ID Status Reason Start Date Expiration Date Visits Requested Visits Authorized [id number] Pending Review Auto-Generat ed Referral 10/04/2021 11/03/2022 1 1 * Diagnostic Procedure Only (Routine) - Pending Review Specialty Diagnoses / Procedures Referred By Contac t Referred To Contact [facility] IM[facility] Diagnoses Inconclusive mammogram Procedures US BREAST LTD LT US BREAST UNI REAL TIME WITH IMAGE LIMITED Jaimee Palomares PA-C [address] [place] [address] [facility] [address] [place] [address] Referral ID Status Reason Start Date Expiration Date Visits Requested Visits Authorized [id number] Pending Review Auto-Generat ed Referral 10/04/2021 11/03/2022 1 1 * Diagnostic Procedure Only (Routine) - Pending Review Specialty Diagnoses / Procedures Referred By Contac t Referred To Contact BR IM[facility] Diagnoses Inconclusive mammogram Procedures SHILOH DIAGNOSTIC BILAT DIAGNOSTIC MAMMOGRAPHY COMPUTER-AIDED DETCJ BI Jaimee Palomares PA-C [address] [place] [address] [facility] [address] [place] [address] Referral ID Status Reason Start Date Expiration Date Visits Requested Visits Authorized [id number] Pending Review Auto-Generat ed Referral 10/04/2021 11/03/2022 1 1 [facility] for referral (narrative)* Diagnostic Procedure Only (Routine) - Closed Specialty Diagnoses / Procedures Referred By Contac t Referred To Contact XR IMAGING Diagnoses Cervicalgia Procedures XR CERV OTHER 4V AP/LAT/OBL RADEX SPINE CERVICAL 4 OR 5 VIEWS Jaimee Palomares PA-C [address] [place] [address] Xr Imaging Referral ID Status Reason Start Date Expiration Date V isits Requested Visits Authorized [id number] Closed Auto-Generate d Referral 11/12/2021 12/12/2022 1 1 * Consult, Test, Treat (Routine) - Authorized Specialty Diagnoses / Procedures Referred By Contac t Referred To Contact General Surgery Diagnoses Screening for colon cancer Procedures CONSULT TO GENERAL SURGERY OFFICE/OUTPATIENT NEW HIGH MDM 60-74 MINUTES Jaimee Palomares PA-C [address] [place] [address] Referral ID Status Reason Start Date Expiration Date Visits Requested Visits Authorized [id number] Authorized PCP Requested Referral 11/12/2021 11/12/2022 1 1 * Physical Therapy (Routine) - Pending Review Specialty Diagnoses / Procedures Referred By Contac t Referred To Contact [facility] Diagnoses Stress incontinence Procedures CONSULT TO PHYSICAL THERAPY PHYSICAL THERAPY EVALUATION HIGH COMPLEX 45 MINS Jaimee Palomares PA-C [address] [place] [address] [facility] [address] [address] Referral ID Status Reason Start Date Expiration Date Visits Requested Visits Authorized [id number] Pending Review Auto-Generat ed Referral 11/12/2021 11/12/2022 1 1 [facility] for referral (narrative)* Outpatient Procedure (Routine) - Authorized Specialty Diagnoses / Procedures Referred By Contac t Referred To Contact [facility] Diagnoses History of colonic polyps Procedures COLONOSCOPY DIAGNOSTIC COLONOSCOPY FLX DX W/COLLJ SPEC WHEN Josué Reyna MD [address] [place] [address] [facility] [address] [place] [address] Referral ID Status Reason Start Date Expiration Date Visits Requested Visits Authorized [id number] Authorized Auto-Generat ed Referral 11/23/2021 11/23/2022 1 1 * Diagnostic Procedure Only (Routine) - Authorized Specialty Diagnoses / Procedures Referred By Contac t Referred To Contact [facility] IMAGING Diagnoses Chronic active hepatitis C (HCC) Procedures US ABD RT UPPER QUADRANT US ABDOMINAL REAL TIME W/IMAGE LIMITED Josué Blevins MD [address] [place] [address] Us [facility] Referral ID Status Reason Start Date Expiration Date Visits Requested Visits Authorized [id number] Authorized Auto-Generat ed Referral 11/23/2021 12/23/2022 1 1 * Outpatient Procedure (Routine) - Pending Review Specialty Diagnoses / Procedures Referred By Contac t Referred To Contact [facility] Diagnoses Chronic active hepatitis C (HCC) Procedures DDI VIBRATION CONTROLLED TRANSIENT ELASTOGRAPHY (VCTE) LIVER ELASTOGRAPHY W/O IMAG W/I&R Josué Blevins MD [address] [place] [address] [facility] [address] [place] [address] Referral ID Status Reason Start Date Expiration Date Visits Requested Visits Authorized [id number] Pending Review Auto-Generat ed Referral 11/23/2021 11/23/2022 1 1 [facility] for referral (narrative)* Diagnostic Procedure Only (Routine) - Closed Specialty Diagnoses / Procedures Referred By Contac t Referred To Contact US IMAG[facility] Diagnoses Chronic active hepatitis C (HCC) Procedures US ABD RT UPPER QUADRANT US ABDOMINAL REAL TIME W/IMAGE LIMITED Josué Blevins MD [address] [place] [address] [facility] Referral ID Status Reason Start Date Expiration Date V isits Requested Visits Authorized [id number] Closed Auto-Generate d Referral 11/23/2021 12/23/2022 1 1 [facility] for referral (narrative)* Outpatient Procedure (Routine) - Closed Specialty Diagnoses / Procedures Referred By Contac t Referred To Contact [facility] Diagnoses History of colonic polyps Procedures COLONOSCOPY DIAGNOSTIC COLONOSCOPY FLX DX W/COLLJ SPEC WHEN Josué Reyna MD [address] [place] [address] [facility] [address] [place] [address] Referral ID Status Reason Start Date Expiration Date V isits Requested Visits Authorized [id number] Closed Auto-Generate d Referral 11/23/2021 11/23/2022 1 1 [facility] for referral (narrative)* - Pending Review Specialty Diagnoses / Procedures Referred By Contac t Referred To Contact Physical Therapy Diagnoses Spinal stenosis of lumbar region without neurogenic claudication Procedures CONSULT TO PHYSICAL THERAPY Shira Kam, ROBOTIC MACHINE OPERATOR.INSPECTOR [employer]ISS[employer] [address] [place] [address] Referral ID Status Reason Start Date Expiration Date V isits Requested Visits Authorized [id number] Pending Review 06/03/2022 09/01/2022 1 1 Electronically signed by Shira Kam ROBOTIC MACHINE OPERATOR.INSPECTOR [employer]ISSIONS at 06/03/2022 11:32 AM [facility] for referral (narrative)* Diagnostic Procedure Only (Routine) - Closed Specialty Diagnoses / Procedures Referred By Contac t Referred To Contact [facility] Diagnoses Breast pain Procedures US BREAST LTD LT US BREAST UNI REAL TIME WITH IMAGE LIMITED Memo Huber MD [address] [place] [address] [facility] [address] [place] [address] Referral ID Status Reason Start Date Expiration Date V isits Requested Visits Authorized [id number] Closed Auto-Generate d Referral 07/29/2022 08/28/2023 1 1 [facility] for visit Narrative* Diagnostic Procedure Only (Routine) - Closed Specialty Diagnoses / Procedures Referred By Contac t Referred To Contact [facility] Diagnoses Inconclusive mammogram Procedures SHILOH DIAGNOSTIC BILAT DIAGNOSTIC MAMMOGRAPHY COMPUTER-AIDED DETCJ Jaimee Brown PA-C [address] [place] [address] [facility] [address] [place] [address] Referral ID Status Reason Start Date Expiration Date V isits Requested Visits Authorized [id number] Closed Auto-Generate d Referral 10/04/2021 11/03/2022 1 1 [facility] for visit Narrative* Diagnostic Procedure Only (Routine) - Closed Specialty Diagnoses / Procedures Referred By [facility] Referred To Contact [facility] Diagnoses Chronic active hepatitis C (HCC) Procedures US ABD RT UPPER QUADRANT US ABDOMINAL REAL TIME W/IMAGE LIMITED Josué Blevins MD [address] [facility] [place] [address] [facility] Referral ID Status Reason Start Date Expiration Date V isits Requested Visits Authorized [id number] Closed Auto-Generate d Referral 11/23/2021 12/23/2022 1 1 [facility] for visit Narrative* Outpatient Procedure (Routine) - Closed Specialty Diagnoses / Procedures Referred By [facility] Referred To Contact [facility] Diagnoses History of colonic polyps Procedures COLONOSCOPY DIAGNOSTIC COLONOSCOPY FLX DX W/COLLJ SPEC WHEN PFRMD Josué Blevins MD [address] [facility] [place] [address] [facility] [address] [place] [address] Referral ID Status Reason Start Date Expiration Date V isits Requested Visits Authorized [id number] Closed Auto-Generate d Referral 11/23/2021 11/23/2022 1 1 [facility] for visit Narrative* Auth/Cert Specialty Diagnoses / Procedures Referred By [facility] Referred To Contact Diagnoses Radiculopathy, lumbar region Spinal stenosis, lumbar region, without neurogenic claudication Radiculopathy, lumbar region [M54.16] Spinal stenosis, lumbar region, without neurogenic claudication [M48.061] Procedures NJX AA&/STRD TFRML EPI LUMBAR/SACRAL 1 LEVEL INJECTION ANESTHETIC AGENT/STEROID TRANSFORAMINAL EPIDURAL W/ IMAGING GUIDANCE LUMBAR BILATERAL [facility] [address] [place] [address] Referral ID Status Reason Start Date Expiration Date Visits Re quested Visits Authorized [id number] 1 1 [facility] Diagnostic Procedure Only (Routine) - Closed Specialty Diagnoses / Procedures Referred By Contac t Referred To Contact [facility] Diagnoses Breast pain Procedures SHILOH DIAGNOSTIC BILAT DIAGNOSTIC MAMMOGRAPHY COMPUTER-AIDED DETCJ BI Memo Huber MD [address] [place] [address] [facility] [address] [place] [address] Referral ID Status Reason Start Date Expiration Date V isits Requested Visits Authorized [id number] Closed Auto-Generate d Referral 07/29/2022 08/28/2023 1 1 [facility] Summary Purpose Family History No Family History Records FoundNo Family History Records FoundNo Family History Records FoundNo Family History Records Found Advance Directives No Advanced Directives Records FoundDocuments on File Type Date Recorded 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 Advance Directive(s) 10/12/2018 8:00 AM [...] Documents on File Type Date Recorded 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 Advance Directive(s) 10/12/2018 8:00 AM [...] Documents on File Type Date Recorded 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 Advance Directive(s) 11/27/2021 2:06 PM [...] Documents on File Type Date Recorded 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 Advance Directive(s) 11/27/2021 2:06 PM [...] Referred To Contact Jaimee Palomares PA-C [address] [place] [address] Referral ID Status Reason Start Date Expiration Date V isits Requested Visits Authorized [id number] Pending Review 1 1 Referral ID Status Reason Start Date Expiration Date V isits Requested Visits Authorized [id number] Pending Review 1 1 Specialty Diagnoses / Procedures Referred By Contac t Referred To Contact Diagnoses Radiculopathy, lumbar region Spinal stenosis of lumbar region without neurogenic claudication Procedures [facility] Denice Gr, SARAI.INSPECTOR [employer]ISS[employer] [address] [place] [address] [address] Referral ID Status Reason Start Date Expiration Date Visits Requested Visits Authorized [id number] Authorized PCP Requested Referral 12/09/2021 03/09/2022 1 1 Specialty Diagnoses / Procedures Referred By Contac t Referred To Contact Urology Diagnoses History of urinary urgency Procedures CONSULT TO UROLOGY OFFICE/OUTPATIENT [facility] 60-74 MINUTES Denice Gr, SARAI.INSPECTOR [employer]ISS[employer] [address] [place] [address] Referral ID Status Reason Start Date Expiration Date Visits Requested Visits Authorized [id number] Authorized PCP Requested Referral 12/09/2021 12/09/2022 1 1 Specialty Diagnoses / Procedures Referred By Contac t Referred To Contact Diagnoses Other chronic pain Procedures CONSULT TO [facility] Denice Gr APRN.INSPECTOR [employer] [address] [place] [address] [facility] [address] [place] [address] Referral ID Status Reason Start Date Expiration Date V isits Requested Visits Authorized [id number] Closed PCP Requested Referral 01/04/2022 04/04/2022 1 1 Specialty Diagnoses / Procedures Referred By Contac t Referred To Contact MR IMAGING Diagnoses Cognitive impairment, mild, so stated Memory impairment Slurred speech Procedures MRI BRAIN WO IVCON MRI BRAIN BRAIN STEM W/O CONTRAST MATERIAL Jaimee Palomares PA-C [address] [place] [address] Mr Imaging Referral ID Status Reason Start Date Expiration Date Visits Requested Visits Authorized [id number] Pending Review Auto-Generat ed Referral 02/27/2022 03/29/2023 1 1 Specialty Diagnoses / Procedures Referred By Contac t Referred To Contact Neurology Diagnoses Memory impairment Chronic hepatitis C without hepatic coma (HCC) Alcohol abuse, in remission Procedures CONSULT TO NEUROLOGY OFFICE/OUTPATIENT [facility] MDM 60-74 MINUTES Jaimee Palomares PA-C [address] [place] [address] Referral ID Status Reason Start Date Expiration Date Visits Requested Visits Authorized [id number] Authorized PCP Requested Referral 02/25/2022 02/25/2023 1 1 Specialty Diagnoses / Procedures Referred By Contac t Referred To Contact CT IMAGING Diagnoses Lung nodules Procedures CT CHEST WO IVCON DIAGNOSTIC COMPUTED TOMOGRAPHY THORAX W/O CNTRST Jaimee Palomares PA-C [address] [place] [address] Ct [facility] Referral ID Status Reason Start Date Expiration Date Visits Requested Visits Authorized [id number] Pending Review Auto-Generat ed Referral 06/13/2023 1 1 Specialty Diagnoses / Procedures Referred By Contac t Referred To Contact Memo Huber MD [address] [place] [address] Referral ID Status Reason Start Date Expiration Date Visits Re quested Visits Authorized [id number] Closed 1 1 Referral ID Status Reason Start Date Expiration Date Visits Re quested Visits Authorized [id number] Closed 1 1 Specialty Diagnoses / Procedures Referred By Yana t Referred To Contact Breast Diseases Diagnoses Mastodynia of left breast Dense breast tissue Procedures CONSULT TO BREAST CENTER OFFICE/OUTPATIENT [facility] MDM 60-74 MINUTES Jenifer Yeager APRN.[facility] [address] [place] [address] Referral ID Status Reason Start Date Expiration Date Visits Requested Visits Authorized [id number] Authorized PCP Requested Referral 10/20/2022 10/20/2023 1 1 Specialty Diagnoses / Procedures Referred By Yana cartwright Referred To Contact MR IMAGING Diagnoses Transient cerebral ischemia, unspecified type Balance problem Falls frequently Procedures MRI BRAIN WO IVCON MRI BRAIN BRAIN STEM W/O CONTRAST MATERIAL Urvashi Hughes, SARAI.INSPECTOR EXHAUST EMISSIONS [address] [place] [address] Mr Imaging Referral ID Status Reason Start Date Expiration Date Visits Requested Visits Authorized [id number] Pending Review Auto-Generat ed Referral 12/16/2022 01/15/2024 1 1 Specialty Diagnoses / Procedures Referred By Yana cartwright Referred To Contact [facility] Diagnoses Cognitive impairment Hallucinations Procedures EPIL EEG ROUTINE ELECTROENCEPHALOGRAM REC COMA/SLEEP ONLY Urvashi Hughes, SARAI.INSPECTOR EXHAUST EMISSIONS [address] [place] [address] [address] Referral ID Status Reason Start Date Expiration Date Visits Requested Visits Authorized [id number] Authorized Auto-Generat ed Referral 12/16/2022 12/17/2023 1 1 Specialty Diagnoses / Procedures Referred By Yana t Referred To Contact Diagnoses Alcohol abuse, in remission Polysubstance abuse (HCC) Depression, unspecified depression type Procedures CONSULT TO PSYCHIATRY OFFICE/OUTPATIENT [facility] 60-74 MINUTES Urvashi Hughes APRN.INSPECTOR EXHAUST EMISSIONS [address] [place] [address] Referral ID Status Reason Start Date Expiration Date Visits Requested Visits Authorized [id number] Pending Review PCP Requested Referral 12/16/2022 12/16/2023 1 1 Referral ID Status Reason Start Date Expiration Date Visits Re quested Visits Authorized [id number] Closed 1 1 Specialty Diagnoses / Procedures Referred By Contac t Referred To Contact Diagnoses Family history of breast cancer Family history of ovarian cancer Procedures CONSULT TO MEDICAL GENETICS - CANCER MEDICAL GENETICS COUNSELING EACH 30 MINUTES Agustina Brown PA-C [id number] [place] [address] [facility] [place] [address] [place] [address] Referral ID Status Reason Start Date Expiration Date Visits Requested Visits Authorized [id number] Authorized PCP Requested Referral Auto-Generate d Referral 02/14/2023 02/14/2024 1 1 Specialty Diagnoses / Procedures Referred By Contac t Referred To Contact [facility] Diagnoses Primary osteoarthritis of right hip Lumbar radiculopathy Procedures PT AQUATIC REHAB FOLLOW UP ORDER THER PX 1/> AREAS EACH 15 MIN AQUA THER W/XERSS Pt c Bath [address] [place] [address] [facility] [place] [address] Referral ID Status Reason Start Date Expiration Date Visits Requested Visits Authorized [id number] Pending Review PCP Requested Referral Auto-Generate d Referral 02/16/2023 05/17/2023 1 1 Specialty Diagnoses / Procedures Referred By Contac t Referred To Contact MR IMAGING Diagnoses Transient cerebral ischemia, unspecified type Balance problem Falls frequently Procedures MRI BRAIN WO IVCON MRI BRAIN BRAIN STEM W/O CONTRAST MATERIAL Urvashi Hughes, ROBOTIC MACHINE OPERATOR.INSPECTOR EXHAUST EMISSIONS [address] [place] [address] Mr Imaging [address] [address] Referral ID Status Reason Start Date Expiration Date V isits Requested Visits Authorized [id number] Closed Auto-Generate d Referral 01/12/2023 03/13/2023 1 1 Specialty Diagnoses / Procedures Referred By [facility] Referred To Contact MR IMAGING Diagnoses Weakness of both hands Numbness and tingling in both hands Complaining of cold hands Procedures MRI CERVICAL SPINE WO IVCON MRI SPINAL CANAL CERVICAL W/O CONTRAST MATRL Flo Martino MD [facility] [id number] Mr Imaging [place] [address] Referral ID Status Reason Start Date Expiration Date V isits Requested Visits Authorized [id number] Open Auto-Generate d Referral 05/10/2023 06/08/2024 1 1 Specialty Diagnoses / Procedures Referred By Contac t Referred To Contact [facility] Diagnoses Complaining of cold hands Procedures US ARM ARTERIAL KAM[facility] DUP-SCAN UXTR ART/ARTL BPGS COMPL BI STUDY Flo Martino MD [address] [place], [place] [id number] [facility] [place] [address] [place] [address] Referral ID Status Reason Start Date Expiration Date Visits Requested Visits Authorized [id number] Authorized Auto-Generat ed Referral 3 05/09/2024 1 1 Specialty Diagnoses / Procedures Referred By Contact Referred To Contact [facility] Diagnoses Weakness of both hands Numbness and tingling in both hands Procedures EMG(NEURO/NI) NERVE CONDUCTION STUDIES 9-10 STUDIES Flo Martino MD [facility] [place] [id number] Neurological [place] [address] [place] [address] Referral ID Status Reason Start Date Expiration Date Visits Requested Visits Authorized [id number] Authorized Auto-Generat ed Referral 3 05/10/2024 1 1 Additional Source Comments INFORMATION SOURCE (unrecogn ized section and content) DATE CREATED AUTHOR AUTHOR'S ORGANIZ ATION 05/25/2019 [facility] DATE CREATED AUTHOR AUTHOR'S ORGANIZ ATION 05/29/2023 [facility] DATE CREATED AUTHOR AUTHOR'S ORGANIZ ATION 06/12/2023 [facility] Source Comments (unrecognize d section and content) In the event this informatio n is protected by the Federal Confidentiality of Alcohol and Drug Abuse Patient Records regulations: The Federal rules restrict any use of the information to criminally investigate or prosecute any alcohol or drug abuse patient.[facility] the event this information is protected by the Federal Confidentiality of Alcohol and Drug Abuse Patient Records regulations: The Federal rules restrict any use of the information to criminally investigate or prosecute any alcohol or drug abuse patient.[facility]In the event this information is protected by the Federal Confidentiality of Alcohol and Drug Abuse Patient Records regulations: The Federal rules restrict any use of the information to criminally investigate or prosecute any alcohol or drug abuse patient.[facility] HospitalIn the event this information is protected [...] or prosecute any alcohol or drug abuse patient.[facility] HospitalIn the event this information is protected by the Federal Confidentiality of Alcohol and Drug Abuse Patient Records regulations: The Federal rules restrict any use of the information to criminally investigate or prosecute any alcohol or drug abuse patient.[facility] HospitalIn the event this information is protected by the Federal Confidentiality of Alcohol and Drug Abuse Patient Records regulations: The Federal rules restrict any use of the information to criminally investigate or prosecute any alcohol or drug abuse patient.[facility] HospitalIn the event this information is protected by the Federal Confidentiality of Alcohol and Drug Abuse Patient Records regulations: The Federal rules restrict any use of the information to criminally investigate or prosecute any alcohol or drug abuse patient.[facility] HospitalIn the event this information is protected by the Federal Confidentiality of Alcohol and Drug Abuse Patient Records regulations: The Federal rules restrict any use of the information to criminally investigate or prosecute any alcohol or drug abuse patient.[facility] HospitalIn the event this information is protected by the Federal Confidentiality of Alcohol and Drug Abuse Patient Records regulations: The Federal rules restrict any use of the information to criminally investigate or prosecute any alcohol or drug abuse patient.[facility] HospitalIn the event this information is protected by the Federal Confidentiality of Alcohol and Drug Abuse Patient Records regulations: The Federal rules restrict any use of the information to criminally investigate or prosecute any alcohol or drug abuse patient.[facility] HospitalIn the event this information is protected by the Federal Confidentiality of Alcohol and Drug Abuse Patient Records regulations: The Federal rules restrict any use of the information to criminally investigate or prosecute any alcohol or drug abuse patient.[facility] HospitalIn the event this information is protected by the Federal Confidentiality of Alcohol and Drug Abuse Patient Records regulations: The Federal rules restrict any use of the information to criminally investigate or prosecute any alcohol or drug abuse patient.[facility] HospitalIn the event this information is protected by the Federal Confidentiality of Alcohol and Drug Abuse Patient Records regulations: The Federal rules restrict any use of the information to criminally investigate or prosecute any alcohol or drug abuse patient.[facility] HospitalIn the event this information is protected by the Federal Confidentiality of Alcohol and Drug Abuse Patient Records regulations: The Federal rules restrict any use of the information to criminally investigate or prosecute any alcohol or drug abuse patient.[facility] HospitalIn the event this information is protected by the Federal Confidentiality of Alcohol and Drug Abuse Patient Records regulations: The Federal rules restrict any use of the information to criminally investigate or prosecute any alcohol or drug abuse patient.[facility] HospitalIn the event this information is protected by the Federal Confidentiality of Alcohol and Drug Abuse Patient Records regulations: The Federal rules restrict any use of the information to criminally investigate or prosecute any alcohol or drug abuse patient.[facility] HospitalIn the event this information is protected by the Federal Confidentiality of Alcohol and Drug Abuse Patient Records regulations: The Federal rules restrict any use of the information to criminally investigate or prosecute any alcohol or drug abuse patient.[facility] HospitalIn the event this information is protected by the Federal Confidentiality of Alcohol and Drug Abuse Patient Records regulations: The Federal rules restrict any use of the information to criminally investigate or prosecute any alcohol or drug abuse patient.[facility] HospitalIn the event this information is protected by the Federal Confidentiality of Alcohol and Drug Abuse Patient Records regulations: The Federal rules restrict any use of the information to criminally investigate or prosecute any alcohol or drug abuse patient.[facility] HospitalIn the event this information is protected by the Federal Confidentiality of Alcohol and Drug Abuse Patient Records regulations: The Federal rules restrict any use of the information to criminally investigate or prosecute any alcohol or drug abuse patient.[facility] HospitalIn the event this information is protected by the Federal Confidentiality of Alcohol and Drug Abuse Patient Records regulations: The Federal rules restrict any use of the information to criminally investigate or prosecute any alcohol or drug abuse patient.[facility] HospitalIn the event this information is protected by the Federal Confidentiality of Alcohol and Drug Abuse Patient Records regulations: The Federal rules restrict any use of the information to criminally investigate or prosecute any alcohol or drug abuse patient.[facility] HospitalIn the event this information is protected by the Federal Confidentiality of Alcohol and Drug Abuse Patient Records regulations: The Federal rules restrict any use of the information to criminally investigate or prosecute any alcohol or drug abuse patient.[facility] HospitalIn the event this information is protected by the Federal Confidentiality of Alcohol and Drug Abuse Patient Records regulations: The Federal rules restrict any use of the information to criminally investigate or prosecute any alcohol or drug abuse patient.[facility] HospitalIn the event this information is protected by the Federal Confidentiality of Alcohol and Drug Abuse Patient Records regulations: The Federal rules restrict any use of the information to criminally investigate or prosecute any alcohol or drug abuse patient.[facility] HospitalIn the event this information is protected by the Federal Confidentiality of Alcohol and Drug Abuse Patient Records regulations: The Federal rules restrict any use of the information to criminally investigate or prosecute any alcohol or drug abuse patient.[facility] HospitalIn the event this information is protected by the Federal Confidentiality of Alcohol and Drug Abuse Patient Records regulations: The Federal rules restrict any use of the information to criminally investigate or prosecute any alcohol or drug abuse patient.[facility] HospitalIn the event this information is protected by the Federal Confidentiality of Alcohol and Drug Abuse Patient Records regulations: The Federal rules restrict any use of the information to criminally investigate or prosecute any alcohol or drug abuse patient.[facility] HospitalIn the event this information is protected by the Federal Confidentiality of Alcohol and Drug Abuse Patient Records regulations: The Federal rules restrict any use of the information to criminally investigate or prosecute any alcohol or drug abuse patient.[facility] HospitalIn the event this information is protected by the Federal Confidentiality of Alcohol and Drug Abuse Patient Records regulations: The Federal rules restrict any use of the information to criminally investigate or prosecute any alcohol or drug abuse patient.[facility] HospitalIn the event this information is protected by the Federal Confidentiality of Alcohol and Drug Abuse Patient Records regulations: The Federal rules restrict any use of the information to criminally investigate or prosecute any alcohol or drug abuse patient.[facility] HospitalIn the event this information is protected by the Federal Confidentiality of Alcohol and Drug Abuse Patient Records regulations: The Federal rules restrict any use of the information to criminally investigate or prosecute any alcohol or drug abuse patient.[facility] HospitalIn the event this information is protected by the Federal Confidentiality of Alcohol and Drug Abuse Patient Records regulations: The Federal rules restrict any use of the information to criminally investigate or prosecute any alcohol or drug abuse patient.[facility] HospitalIn the event this information is protected by the Federal Confidentiality of Alcohol and Drug Abuse Patient Records regulations: The Federal rules restrict any use of the information to criminally investigate or prosecute any alcohol or drug abuse patient.[facility] HospitalIn the event this information is protected by the Federal Confidentiality of Alcohol and Drug Abuse Patient Records regulations: The Federal rules restrict any use of the information to criminally investigate or prosecute any alcohol or drug abuse patient.[facility] HospitalIn the event this information is protected by the Federal Confidentiality of Alcohol and Drug Abuse Patient Records regulations: The Federal rules restrict any use of the information to criminally investigate or prosecute any alcohol or drug abuse patient.[facility] HospitalIn the event this information is protected by the Federal Confidentiality of Alcohol and Drug Abuse Patient Records regulations: The Federal rules restrict any use of the information to criminally investigate or prosecute any alcohol or drug abuse patient.[facility] HospitalIn the event this information is protected by the Federal Confidentiality of Alcohol and Drug Abuse Patient Records regulations: The Federal rules restrict any use of the information to criminally investigate or prosecute any alcohol or drug abuse patient.[facility] HospitalIn the event this information is protected by the Federal Confidentiality of Alcohol and Drug Abuse Patient Records regulations: The Federal rules restrict any use of the information to criminally investigate or prosecute any alcohol or drug abuse patient.[facility] HospitalIn the event this information is protected by the Federal Confidentiality of Alcohol and Drug Abuse Patient Records regulations: The Federal rules restrict any use of the information to criminally investigate or prosecute any alcohol or drug abuse patient.[facility] HospitalIn the event this information is protected by the Federal Confidentiality of Alcohol and Drug Abuse Patient Records regulations: The Federal rules restrict any use of the information to criminally investigate or prosecute any alcohol or drug abuse patient.[facility] HospitalIn the event this information is protected by the Federal Confidentiality of Alcohol and Drug Abuse Patient Records regulations: The Federal rules restrict any use of the information to criminally investigate or prosecute any alcohol or drug abuse patient.[facility] HospitalIn the event this information is protected by the Federal Confidentiality of Alcohol and Drug Abuse Patient Records regulations: The Federal rules restrict any use of the information to criminally investigate or prosecute any alcohol or drug abuse patient.[facility] HospitalIn the event this information is protected by the Federal Confidentiality of Alcohol and Drug Abuse Patient Records regulations: The Federal rules restrict any use of the information to criminally investigate or prosecute any alcohol or drug abuse patient.[facility] HospitalIn the event this information is protected by the Federal Confidentiality of Alcohol and Drug Abuse Patient Records regulations: The Federal rules restrict any use of the information to criminally investigate or prosecute any alcohol or drug abuse patient.[facility] HospitalIn the event this information is protected by the Federal Confidentiality of Alcohol and Drug Abuse Patient Records regulations: The Federal rules restrict any use of the information to criminally investigate or prosecute any alcohol or drug abuse patient.[facility] HospitalIn the event this information is protected by the Federal Confidentiality of Alcohol and Drug Abuse Patient Records regulations: The Federal rules restrict any use of the information to criminally investigate or prosecute any alcohol or drug abuse patient.[facility] HospitalIn the event this information is protected by the Federal Confidentiality of Alcohol and Drug Abuse Patient Records regulations: The Federal rules restrict any use of the information to criminally investigate or prosecute any alcohol or drug abuse patient.[facility] HospitalIn the event this information is protected by the Federal Confidentiality of Alcohol and Drug Abuse Patient Records regulations: The Federal rules restrict any use of the information to criminally investigate or prosecute any alcohol or drug abuse patient.[facility] HospitalIn the event this information is protected by the Federal Confidentiality of Alcohol and Drug Abuse Patient Records regulations: The Federal rules restrict any use of the information to criminally investigate or prosecute any alcohol or drug abuse patient.[facility] HospitalIn the event this information is protected by the Federal Confidentiality of Alcohol and Drug Abuse Patient Records regulations: The Federal rules restrict any use of the information to criminally investigate or prosecute any alcohol or drug abuse patient.[facility] HospitalIn the event this information is protected by the Federal Confidentiality of Alcohol and Drug Abuse Patient Records regulations: The Federal rules restrict any use of the information to criminally investigate or prosecute any alcohol or drug abuse patient.[facility] HospitalIn the event this information is protected [...] or prosecute any alcohol or drug abuse patient.[facility] HospitalIn the event this information is protected by the Federal Confidentiality of Alcohol and Drug Abuse Patient Records regulations: The Federal rules restrict any use of the information to criminally investigate or prosecute any alcohol or drug abuse patient.[facility] HospitalIn the event this information is protected by the Federal Confidentiality of Alcohol and Drug Abuse Patient Records regulations: The Federal rules restrict any use of the information to criminally investigate or prosecute any alcohol or drug abuse patient.[facility] HospitalIn the event this information is protected by the Federal Confidentiality of Alcohol and Drug Abuse Patient Records regulations: The Federal rules restrict any use of the information to criminally investigate or prosecute any alcohol or drug abuse patient.[facility] HospitalIn the event this information is protected by the Federal Confidentiality of Alcohol and Drug Abuse Patient Records regulations: The Federal rules restrict any use of the information to criminally investigate or prosecute any alcohol or drug abuse patient.[facility] HospitalIn the event this information is protected by the Federal Confidentiality of Alcohol and Drug Abuse Patient Records regulations: The Federal rules restrict any use of the information to criminally investigate or prosecute any alcohol or drug abuse patient.[facility] HospitalIn the event this information is protected by the Federal Confidentiality of Alcohol and Drug Abuse Patient Records regulations: The Federal rules restrict any use of the information to criminally investigate or prosecute any alcohol or drug abuse patient.[facility] HospitalIn the event this information is protected by the Federal Confidentiality of Alcohol and Drug Abuse Patient Records regulations: The Federal rules restrict any use of the information to criminally investigate or prosecute any alcohol or drug abuse patient.[facility] HospitalIn the event this information is protected by the Federal Confidentiality of Alcohol and Drug Abuse Patient Records regulations: The Federal rules restrict any use of the information to criminally investigate or prosecute any alcohol or drug abuse patient.[facility] HospitalIn the event this information is protected by the Federal Confidentiality of Alcohol and Drug Abuse Patient Records regulations: The Federal rules restrict any use of the information to criminally investigate or prosecute any alcohol or drug abuse patient.[facility] HospitalIn the event this information is protected by the Federal Confidentiality of Alcohol and Drug Abuse Patient Records regulations: The Federal rules restrict any use of the information to criminally investigate or prosecute any alcohol or drug abuse patient.[facility] HospitalIn the event this information is protected by the Federal Confidentiality of Alcohol and Drug Abuse Patient Records regulations: The Federal rules restrict any use of the information to criminally investigate or prosecute any alcohol or drug abuse patient.[facility] HospitalIn the event this information is protected by the Federal Confidentiality of Alcohol and Drug Abuse Patient Records regulations: The Federal rules restrict any use of the information to criminally investigate or prosecute any alcohol or drug abuse patient.[facility] HospitalIn the event this information is protected by the Federal Confidentiality of Alcohol and Drug Abuse Patient Records regulations: The Federal rules restrict any use of the information to criminally investigate or prosecute any alcohol or drug abuse patient.[facility] HospitalIn the event this information is protected by the Federal Confidentiality of Alcohol and Drug Abuse Patient Records regulations: The Federal rules restrict any use of the information to criminally investigate or prosecute any alcohol or drug abuse patient.[facility] HospitalIn the event this information is protected by the Federal Confidentiality of Alcohol and Drug Abuse Patient Records regulations: The Federal rules restrict any use of the information to criminally investigate or prosecute any alcohol or drug abuse patient.[facility] HospitalIn the event this information is protected by the Federal Confidentiality of Alcohol and Drug Abuse Patient Records regulations: The Federal rules restrict any use of the information to criminally investigate or prosecute any alcohol or drug abuse patient.[facility] HospitalIn the event this information is protected by the Federal Confidentiality of Alcohol and Drug Abuse Patient Records regulations: The Federal rules restrict any use of the information to criminally investigate or prosecute any alcohol or drug abuse patient.[facility] HospitalIn the event this information is protected by the Federal Confidentiality of Alcohol and Drug Abuse Patient Records regulations: The Federal rules restrict any use of the information to criminally investigate or prosecute any alcohol or drug abuse patient.[facility] HospitalIn the event this information is protected by the Federal Confidentiality of Alcohol and Drug Abuse Patient Records regulations: The Federal rules restrict any use of the information to criminally investigate or prosecute any alcohol or drug abuse patient.[facility] HospitalIn the event this information is protected by the Federal Confidentiality of Alcohol and Drug Abuse Patient Records regulations: The Federal rules restrict any use of the information to criminally investigate or prosecute any alcohol or drug abuse patient.[facility] HospitalIn the event this information is protected by the Federal Confidentiality of Alcohol and Drug Abuse Patient Records regulations: The Federal rules restrict any use of the information to criminally investigate or prosecute any alcohol or drug abuse patient.[facility] HospitalIn the event this information is protected by the Federal Confidentiality of Alcohol and Drug Abuse Patient Records regulations: The Federal rules restrict any use of the information to criminally investigate or prosecute any alcohol or drug abuse patient.[facility] HospitalIn the event this information is protected by the Federal Confidentiality of Alcohol and Drug Abuse Patient Records regulations: The Federal rules restrict any use of the information to criminally investigate or prosecute any alcohol or drug abuse patient.[facility] HospitalIn the event this information is protected by the Federal Confidentiality of Alcohol and Drug Abuse Patient Records regulations: The Federal rules restrict any use of the information to criminally investigate or prosecute any alcohol or drug abuse patient.[facility] HospitalIn the event this information is protected by the Federal Confidentiality of Alcohol and Drug Abuse Patient Records regulations: The Federal rules restrict any use of the information to criminally investigate or prosecute any alcohol or drug abuse patient.[facility] HospitalIn the event this information is protected by the Federal Confidentiality of Alcohol and Drug Abuse Patient Records regulations: The Federal rules restrict any use of the information to criminally investigate or prosecute any alcohol or drug abuse patient.[facility] HospitalIn the event this information is protected by the Federal Confidentiality of Alcohol and Drug Abuse Patient Records regulations: The Federal rules restrict any use of the information to criminally investigate or prosecute any alcohol or drug abuse patient.[facility] HospitalIn the event this information is protected by the Federal Confidentiality of Alcohol and Drug Abuse Patient Records regulations: The Federal rules restrict any use of the information to criminally investigate or prosecute any alcohol or drug abuse patient.[facility] HospitalIn the event this information is protected by the Federal Confidentiality of Alcohol and Drug Abuse Patient Records regulations: The Federal rules restrict any use of the information to criminally investigate or prosecute any alcohol or drug abuse patient.[facility] HospitalIn the event this information is protected by the Federal Confidentiality of Alcohol and Drug Abuse Patient Records regulations: The Federal rules restrict any use of the information to criminally investigate or prosecute any alcohol or drug abuse patient.[facility] HospitalIn the event this information is protected by the Federal Confidentiality of Alcohol and Drug Abuse Patient Records regulations: The Federal rules restrict any use of the information to criminally investigate or prosecute any alcohol or drug abuse patient.[facility] HospitalIn the event this information is protected by the Federal Confidentiality of Alcohol and Drug Abuse Patient Records regulations: The Federal rules restrict any use of the information to criminally investigate or prosecute any alcohol or drug abuse patient.[facility] HospitalIn the event this information is protected by the Federal Confidentiality of Alcohol and Drug Abuse Patient Records regulations: The Federal rules restrict any use of the information to criminally investigate or prosecute any alcohol or drug abuse patient.[facility] HospitalIn the event this information is protected by the Federal Confidentiality of Alcohol and Drug Abuse Patient Records regulations: The Federal rules restrict any use of the information to criminally investigate or prosecute any alcohol or drug abuse patient.[facility] HospitalIn the event this information is protected by the Federal Confidentiality of Alcohol and Drug Abuse Patient Records regulations: The Federal rules restrict any use of the information to criminally investigate or prosecute any alcohol or drug abuse patient.[facility] HospitalIn the event this information is protected by the Federal Confidentiality of Alcohol and Drug Abuse Patient Records regulations: The Federal rules restrict any use of the information to criminally investigate or prosecute any alcohol or drug abuse patient.[facility] HospitalIn the event this information is protected by the Federal Confidentiality of Alcohol and Drug Abuse Patient Records regulations: The Federal rules restrict any use of the information to criminally investigate or prosecute any alcohol or drug abuse patient.[facility] HospitalIn the event this information is protected by the Federal Confidentiality of Alcohol and Drug Abuse Patient Records regulations: The Federal rules restrict any use of the information to criminally investigate or prosecute any alcohol or drug abuse patient.[facility] HospitalIn the event this information is protected by the Federal Confidentiality of Alcohol and Drug Abuse Patient Records regulations: The Federal rules restrict any use of the information to criminally investigate or prosecute any alcohol or drug abuse patient.[facility] HospitalIn the event this information is protected by the Federal Confidentiality of Alcohol and Drug Abuse Patient Records regulations: The Federal rules restrict any use of the information to criminally investigate or prosecute any alcohol or drug abuse patient.[facility] HospitalIn the event this information is protected by the Federal Confidentiality of Alcohol and Drug Abuse Patient Records regulations: The Federal rules restrict any use of the information to criminally investigate or prosecute any alcohol or drug abuse patient.[facility] HospitalIn the event this information is protected by the Federal Confidentiality of Alcohol and Drug Abuse Patient Records regulations: The Federal rules restrict any use of the information to criminally investigate or prosecute any alcohol or drug abuse patient.[facility] HospitalIn the event this information is protected by the Federal Confidentiality of Alcohol and Drug Abuse Patient Records regulations: The Federal rules restrict any use of the information to criminally investigate or prosecute any alcohol or drug abuse patient.[facility] HospitalIn the event this information is protected by the Federal Confidentiality of Alcohol and Drug Abuse Patient Records regulations: The Federal rules restrict any use of the information to criminally investigate or prosecute any alcohol or drug abuse patient.[facility] HospitalIn the event this information is protected by the Federal Confidentiality of Alcohol and Drug Abuse Patient Records regulations: The Federal rules restrict any use of the information to criminally investigate or prosecute any alcohol or drug abuse patient.[facility] HospitalIn the event this information is protected by the Federal Confidentiality of Alcohol and Drug Abuse Patient Records regulations: The Federal rules restrict any use of the information to criminally investigate or prosecute any alcohol or drug abuse patient.[facility] HospitalIn the event this information is protected by the Federal Confidentiality of Alcohol and Drug Abuse Patient Records regulations: The Federal rules restrict any use of the information to criminally investigate or prosecute any alcohol or drug abuse patient.[facility] HospitalIn the event this information is protected by the Federal Confidentiality of Alcohol and Drug Abuse Patient Records regulations: The Federal rules restrict any use of the information to criminally investigate or prosecute any alcohol or drug abuse patient.[facility] HospitalIn the event this information is protected [...] or prosecute any alcohol or drug abuse patient.[facility] HospitalIn the event this information is protected by the Federal Confidentiality of Alcohol and Drug Abuse Patient Records regulations: The Federal rules restrict any use of the information to criminally investigate or prosecute any alcohol or drug abuse patient.[facility] HospitalIn the event this information is protected by the Federal Confidentiality of Alcohol and Drug Abuse Patient Records regulations: The Federal rules restrict any use of the information to criminally investigate or prosecute any alcohol or drug abuse patient.[facility] HospitalIn the event this information is protected by the Federal Confidentiality of Alcohol and Drug Abuse Patient Records regulations: The Federal rules restrict any use of the information to criminally investigate or prosecute any alcohol or drug abuse patient.[facility] HospitalIn the event this information is protected by the Federal Confidentiality of Alcohol and Drug Abuse Patient Records regulations: The Federal rules restrict any use of the information to criminally investigate or prosecute any alcohol or drug abuse patient.[facility] HospitalIn the event this information is protected by the Federal Confidentiality of Alcohol and Drug Abuse Patient Records regulations: The Federal rules restrict any use of the information to criminally investigate or prosecute any alcohol or drug abuse patient.[facility] HospitalIn the event this information is protected by the Federal Confidentiality of Alcohol and Drug Abuse Patient Records regulations: The Federal rules restrict any use of the information to criminally investigate or prosecute any alcohol or drug abuse patient.[facility] HospitalIn the event this information is protected by the Federal Confidentiality of Alcohol and Drug Abuse Patient Records regulations: The Federal rules restrict any use of the information to criminally investigate or prosecute any alcohol or drug abuse patient.[facility] HospitalIn the event this information is protected by the Federal Confidentiality of Alcohol and Drug Abuse Patient Records regulations: The Federal rules restrict any use of the information to criminally investigate or prosecute any alcohol or drug abuse patient.[facility] HospitalIn the event this information is protected by the Federal Confidentiality of Alcohol and Drug Abuse Patient Records regulations: The Federal rules restrict any use of the information to criminally investigate or prosecute any alcohol or drug abuse patient.[facility] HospitalIn the event this information is protected by the Federal Confidentiality of Alcohol and Drug Abuse Patient Records regulations: The Federal rules restrict any use of the information to criminally investigate or prosecute any alcohol or drug abuse patient.[facility] HospitalIn the event this information is protected by the Federal Confidentiality of Alcohol and Drug Abuse Patient Records regulations: The Federal rules restrict any use of the information to criminally investigate or prosecute any alcohol or drug abuse patient.[facility] HospitalIn the event this information is protected by the Federal Confidentiality of Alcohol and Drug Abuse Patient Records regulations: The Federal rules restrict any use of the information to criminally investigate or prosecute any alcohol or drug abuse patient.[facility] HospitalIn the event this information is protected by the Federal Confidentiality of Alcohol and Drug Abuse Patient Records regulations: The Federal rules restrict any use of the information to criminally investigate or prosecute any alcohol or drug abuse patient.[facility] HospitalIn the event this information is protected by the Federal Confidentiality of Alcohol and Drug Abuse Patient Records regulations: The Federal rules restrict any use of the information to criminally investigate or prosecute any alcohol or drug abuse patient.[facility] HospitalIn the event this information is protected by the Federal Confidentiality of Alcohol and Drug Abuse Patient Records regulations: The Federal rules restrict any use of the information to criminally investigate or prosecute any alcohol or drug abuse patient.[facility] HospitalIn the event this information is protected by the Federal Confidentiality of Alcohol and Drug Abuse Patient Records regulations: The Federal rules restrict any use of the information to criminally investigate or prosecute any alcohol or drug abuse patient.[facility] HospitalIn the event this information is protected by the Federal Confidentiality of Alcohol and Drug Abuse Patient Records regulations: The Federal rules restrict any use of the information to criminally investigate or prosecute any alcohol or drug abuse patient.[facility] Reason for Visit (unrecogniz ed section and content) Reason Comments Medication Request Reason Comments No Show Specialty Diagnoses / Procedures Referred By Contac t Referred To Contact Pain Management / PAIN MANAGEMENT Diagnoses follow up from injection Procedures OFFICE/OUTPATIENT ESTABLISHED MOD MDM 30-39 MIN VIDEO SPEC EST Denice Gr, SARAI.[employer] [address] [place] [address] Denice Gr APRN.[employer] [address] [place] [address] Referral ID Status Reason Start Date Expiration Date Visits Re quested Visits Authorized [id number] Closed 06/20/2021 06/19/2022 1 1 Reason Comments [...] C (HCC) Procedures CONSULT TO HEPATOLOGY OFFICE/OUTPATIENT [facility] 60-74 MINUTES Jaimee Palomares PA-C [address] [place] [address] Referral ID Status Reason Start Date Expiration Date V isits Requested Visits Authorized [id number] Closed PCP Requested Referral 11/16/2021 11/16/2022 1 [...] urinary urgency Procedures CONSULT TO UROLOGY OFFICE/OUTPATIENT [facility] 60-74 MINUTES Denice Gr APRN.[employer] [address] [place] [address] Referral ID Status Reason Start Date Expiration Date V isits Requested Visits Authorized [id number] Closed PCP Requested Referral 12/09/2021 12/09/2022 1 [...] Refill Request 02/26/2022 Reason Comments ED Follow-up [facility] 02/24/22 Hypotenti on Reason Onset Date Comments [...] MDM 60-74 MINUTES Jaimee Palomares, ALEIDA [address] [place] [address] Referral ID Status Reason Start Date Expiration Date V isits Requested Visits Authorized [id number] Closed PCP Requested Referral 02/25/2022 02/25/2023 1 [...] Procedures CONSULT TO PHYSICAL THERAPY Shira Kam, ROBOTIC MACHINE OPERATOR.[employer] [address] [place] [address] Pt [facility] [address] [facility] [place] [address] Referral ID Status Reason Start Date Expiration Date Visits Re quested Visits Authorized [id number] Closed 06/16/2022 06/19/2022 1 1 Reason Onset [...] 60-74 MINUTES Jenifer Yeager APRN.CN [address] [place] [address] Referral ID Status Reason Start Date Expiration Date V isits Requested Visits Authorized [id number] Closed PCP Requested Referral 10/20/2022 10/20/2023 1 1 Reason Comments PT Eval Specialty Diagnoses / Procedures Referred By Contac t Referred To Contact PHYSICAL THERAPY Diagnoses Primary osteoarthritis of right hip Lumbar radiculopathy Procedures CONSULT TO PHYSICAL THERAPY Ibeth Albert PA-C [address] [place] [address] [facility] [address] [place] [address] Referral ID Status Reason Start Date Expiration Date V isits Requested Visits Authorized [id number] Authorized 02/09/2023 06/10/2023 20 20 Reason Onset Date Comments Refill Request 02/28/2023 Reason Comments Physical Therapy Specialty Diagnoses / Procedures Referred By Contac t Referred To Contact PHYSICAL THERAPY Diagnoses Primary osteoarthritis of right hip Lumbar radiculopathy Procedures CONSULT TO PHYSICAL THERAPY Ibeth Albert PA-C [address] [place] [address] Pt [facility] [address] [place] [address] Reason Comments Radiology US Specialty Diagnoses / Procedures Referred By Contac t Referred To Contact [facility] Diagnoses Breast pain Procedures US BREAST LTD RT US BREAST UNI REAL TIME WITH IMAGE LIMITED Memo Huber MD [address] [place] [address] [facility] [address] [place] [address] Referral ID Status Reason Start Date Expiration Date V isits Requested Visits Authorized [id number] Closed Auto-Generate d Referral 07/29/2022 08/28/2023 1 1 Specialty Diagnoses / Procedures Referred By Contac t Referred To Contact [facility] IMAGING Diagnoses Transient cerebral ischemia, unspecified type Balance problem Falls frequently Procedures MRI BRAIN WO IVCON MRI BRAIN BRAIN STEM W/O CONTRAST MATERIAL Urvashi Hughes, ROBOTIC MACHINE OPERATOR.[employer] [address] [place] [address] [place] [address] Referral ID Status Reason Start Date Expiration Date V isits Requested Visits Authorized [id number] Closed Auto-Generate d Referral 01/12/2023 03/13/2023 1 1 Reason Comments ER F/U Numbness and tinglin g in Bilateral hands Care Teams (unrecognized sec tion and content) Print Production Coordinator Relationship Specialty Start Date End Date Jaimee Palomares PA-C [address], [place] [id number] PCP - General Family Practice 09/09/16 Print Production Coordinator Relationship Specialty Start Date End Date Jaimee Palomares PA-C [address], [place] [id number] PCP - General Family Practice 09/09/16 Print Production Coordinator Relationship Specialty Start Date End Date Jaimee Palomares PA-C [address] [facility] [place] [address] PCP - General Family Practice 09/09/16 Print Production Coordinator Relationship Specialty Start Date End Date Jaimee Palomares PA-C [address] [facility] [place] [address] PCP - General Family Practice 09/09/16 Print Production Coordinator Relationship Specialty Start Date End Date Jaimee Palomares PA-C [id number] [facility] [place] [address] PCP - General Family Practice 09/09/16 Print Production Coordinator Relationship Specialty Start Date End Date Jaimee Palomares PA-C [address] [facility] [place] [address] PCP - General Family Practice 09/09/16 Print Production Coordinator Relationship Specialty Start Date End Date Jaimee Palomares PA-C [address] [facility] [place] [address] PCP - General Family Practice 09/09/16 Print Production Coordinator Relationship Specialty Start Date End Date Jaimee Palomares PA-C [address] [facility] [place] [address] PCP - General Family Practice 09/09/16 Print Production Coordinator Relationship Specialty Start Date End Date Jaimee Palomares PA-C [address] [facility] [place] [address] PCP - General Family Practice 09/09/16 Print Production Coordinator Relationship Specialty Start Date End Date Jaimee Palomares PA-C [address] [facility] [place] [address] PCP - General Family Practice 09/09/16 Print Production Coordinator Relationship Specialty Start Date End Date Jaimee Palomares PA-C [address] [facility] [place] [address] PCP - General Family Practice 09/09/16 Print Production Coordinator Relationship Specialty Start Date End Date Jaimee Palomares PA-C [address] [place] [address] PCP - General Family Practice 09/09/16 Print Production Coordinator Relationship Specialty Start Date End Date Jaimee Palomares PA-C [address] [place] [address] PCP - General Family Practice 09/09/16 Print Production Coordinator Relationship Specialty Start Date End Date Jaimee Palomares PA-C [address] [place] [address] PCP - General Family Practice 09/09/16 Print Production Coordinator Relationship Specialty Start Date End Date Jaimee Palomares PA-C [address] [place] [address] PCP - General Family Practice 09/09/16 Print Production Coordinator Relationship Specialty Start Date End Date Jaimee Palomares PA-C [address] [place] [address] PCP - General Family Practice 09/09/16 Print Production Coordinator Relationship Specialty Start Date End Date Jaimee Palomares PA-C [address] [place] [address] PCP - General Family Practice 09/09/16 Print Production Coordinator Relationship Specialty Start Date End Date Jaimee Palomares PA-C [address] [place] [address] PCP - General Family Practice 09/09/16 Print Production Coordinator Relationship Specialty Start Date End Date Jaimee Palomares PA-C [address] [place] [address] PCP - General Family Practice 09/09/16 Print Production Coordinator Relationship Specialty Start Date End Date Jaimee Palomares PA-C [address] [facility] [place] [address] PCP - General Family Practice 09/09/16 Print Production Coordinator Relationship Specialty Start Date End Date Jaimee Palomares PA-C [address] [facility] [place] [address] PCP - General Family Practice 09/09/16 Print Production Coordinator Relationship Specialty Start Date End Date Jaimee Palomares PA-C [address] [facility] [place] [address] PCP - General Family Practice 09/09/16 Print Production Coordinator Relationship Specialty Start Date End Date Jaimee Palomares PA-C [address] [facility] [place] [address] PCP - General Family Practice 09/09/16 Print Production Coordinator Relationship Specialty Start Date End Date Jaimee Palomares PA-C [address] [facility] [place] [address] PCP - General Family Practice 09/09/16 Print Production Coordinator Relationship Specialty Start Date End Date Jaimee Palomares PA-C [address] [facility] [place] [address] PCP - General Family Practice 09/09/16 Print Production Coordinator Relationship Specialty Start Date End Date Jaimee Palomares PA-C [address] [facility] [place] [address] PCP - General Family Practice 09/09/16 Print Production Coordinator Relationship Specialty Start Date End Date Jaimee Palomares PA-C [address] [place] [address] PCP - General Family Practice 09/09/16 Print Production Coordinator Relationship Specialty Start Date End Date Jaimee Palomares PA-C [address] [place] [address] PCP - General Family Practice 09/09/16 Print Production Coordinator Relationship Specialty Start Date End Date Jaimee Palomares PA-C [address] [place] [address] PCP - General Family Practice 09/09/16 Print Production Coordinator Relationship Specialty Start Date End Date Jaimee Palomares PA-C [address] [place] [address] PCP - General Family Practice 09/09/16 Print Production Coordinator Relationship Specialty Start Date End Date Jaimee Palomares PA-C [address] [place] [address] PCP - General Family Practice 09/09/16 Print Production Coordinator Relationship Specialty Start Date End Date Jaimee Palomares PA-C [address] [place] [address] PCP - General Family Practice 09/09/16 Print Production Coordinator Relationship Specialty Start Date End Date Jaimee Palomares PA-C [address] [place] [address] PCP - General Family Practice 09/09/16 Print Production Coordinator Relationship Specialty Start Date End Date Jaimee Palomares PA-C [address] [place] [address] PCP - General Family Practice 09/09/16 Print Production Coordinator Relationship Specialty Start Date End Date Jaimee Palomares PA-C [address] [place] [address] PCP - General Family Practice 09/09/16 Print Production Coordinator Relationship Specialty Start Date End Date Jaimee Palomares PA-C [address] [place] [address] PCP - General Family Medicine 09/09/16 Print Production Coordinator Relationship Specialty Start Date End Date Jaimee Palomares PA-C [address] [facility] [place] [address] PCP - General Family Medicine 09/09/16 Print Production Coordinator Relationship Specialty Start Date End Date Jaimee Palomares PA-C [address] [facility] [place] [address] PCP - General Family Medicine 09/09/16 Print Production Coordinator Relationship Specialty Start Date End Date Jaimee Palomares PA-C [address] [facility] [place] [address] PCP - General Family Medicine 09/09/16 Print Production Coordinator Relationship Specialty Start Date End Date Jaimee Palomares PA-C [address] [facility] [place] [address] PCP - General Family Medicine 09/09/16 Print Production Coordinator Relationship Specialty Start Date End Date Jaimee Palomares PA-C [address] [facility] [place] [address] PCP - General Family Medicine 09/09/16 Print Production Coordinator Relationship Specialty Start Date End Date Jaimee Palomares PA-C [address] [facility] [place] [address] PCP - General Family Medicine 09/09/16 Print Production Coordinator Relationship Specialty Start Date End Date Jaimee Palomares PA-C [address] [facility] [place] [address] PCP - General Family Medicine 09/09/16 Print Production Coordinator Relationship Specialty Start Date End Date Jaimee Palomares PA-C [address] [facility] [place] [address] PCP - General Family Medicine 09/09/16 Print Production Coordinator Relationship Specialty Start Date End Date Jaimee Palomares PA-C [address] [place] [address] PCP - General Family Medicine 09/09/16 Print Production Coordinator Relationship Specialty Start Date End Date Jaimee Palomares PA-C [address] [place] [address] PCP - General Family Medicine 09/09/16 Print Production Coordinator Relationship Specialty Start Date End Date Jaimee Palomares PA-C [address] [place] [address] PCP - General Family Medicine 09/09/16 Print Production Coordinator Relationship Specialty Start Date End Date Jaimee Palomares PA-C [address] [place] [address] PCP - General Family Medicine 09/09/16 Print Production Coordinator Relationship Specialty Start Date End Date Jaimee Palomares PA-C [address] [place] [address] PCP - General Family Medicine 09/09/16 Print Production Coordinator Relationship Specialty Start Date End Date Jaimee Palomares PA-C [address] [place] [address] PCP - General Family Medicine 09/09/16 Print Production Coordinator Relationship Specialty Start Date End Date Jaimee Palomares PA-C [address] [place] [address] PCP - General Family Medicine 09/09/16 Print Production Coordinator Relationship Specialty Start Date End Date Jaimee Palomares PA-C [address] [place] [address] PCP - General Family Medicine 09/09/16 Print Production Coordinator Relationship Specialty Start Date End Date Jaimee Palomares PA-C [address] [place] [address] PCP - General Family Medicine 09/09/16 Print Production Coordinator Relationship Specialty Start Date End Date Jaimee Palomares PA-C [address] [facility] [place] [address] PCP - General Family Medicine 09/09/16 Print Production Coordinator Relationship Specialty Start Date End Date Jaimee Palomares PA-C [address] [facility] [place] [address] PCP - General Family Medicine 09/09/16 Print Production Coordinator Relationship Specialty Start Date End Date Jaimee Palomares PA-C [address] [facility] [address] PCP - General Family Medicine 09/09/16 Print Production Coordinator Relationship Specialty Start Date End Date Jaimee Palomares PA-C [address] [facility] [address] PCP - General Family Medicine 09/09/16 Print Production Coordinator Relationship Specialty Start Date End Date Jaimee Palomares PA-C [address] [facility] [address] PCP - General Family Medicine 09/09/16 Print Production Coordinator Relationship Specialty Start Date End Date Jaimee Palomares PA-C [address] [facility] [address] PCP - General Family Medicine 09/09/16 Print Production Coordinator Relationship Specialty Start Date End Date Jaimee Palomares PA-C [address] [facility] [address] PCP - General Family Medicine 09/09/16 Print Production Coordinator Relationship Specialty Start Date End Date Jaimee Palomares PA-C [address] [facility] [address] PCP - General Family Medicine 09/09/16 Print Production Coordinator Relationship Specialty Start Date End Date Jaimee Palomares PA-C [address] [place] [address] PCP - General Family Medicine 09/09/16 Print Production Coordinator Relationship Specialty Start Date End Date Jaimee Palomares PA-C [address] [place] [address] PCP - General Family Medicine 09/09/16 Print Production Coordinator Relationship Specialty Start Date End Date Jaimee Palomares PA-C [address] [place] [address] PCP - General Family Medicine 09/09/16 Print Production Coordinator Relationship Specialty Start Date End Date Jaimee Palomares PA-C [address] [place] [address] PCP - General Family Medicine 09/09/16 Print Production Coordinator Relationship Specialty Start Date End Date Jaimee Palomares PA-C [address] [place] [address] PCP - General Family Medicine 09/09/16 Print Production Coordinator Relationship Specialty Start Date End Date Jaimee Palomares PA-C [address] [place] [address] PCP - General Family Medicine 09/09/16 Print Production Coordinator Relationship Specialty Start Date End Date Jaimee Palomares PA-C [address] [place] [address] PCP - General Family Medicine 09/09/16 Print Production Coordinator Relationship Specialty Start Date End Date Jaimee Palomares PA-C [address] [place] [address] PCP - General Family Medicine 09/09/16 Print Production Coordinator Relationship Specialty Start Date End Date Jaimee Palomares PA-C [address] [place] [address] PCP - General Family Medicine 09/09/16 Print Production Coordinator Relationship Specialty Start Date End Date Jaimee Palomares PA-C [address] [place] [address] PCP - General Family Medicine 09/09/16 Print Production Coordinator Relationship Specialty Start Date End Date Jaimee Palomares PA-C [address] [place] [address] PCP - General Family Medicine 09/09/16 Print Production Coordinator Relationship Specialty Start Date End Date Jaimee Palomares PA-C [address] [place] [address] PCP - General Family Medicine 09/09/16 Print Production Coordinator Relationship Specialty Start Date End Date Jaimee Palomares PA-C [address] [place] [address] PCP - General Family Medicine 09/09/16 Print Production Coordinator Relationship Specialty Start Date End Date Jaimee Palomares PA-C [address] [place] [address] PCP - General Family Medicine 09/09/16 Print Production Coordinator Relationship Specialty Start Date End Date Jaimee Palomares PA-C [address] [place] [address] PCP - General Family Medicine 09/09/16 Print Production Coordinator Relationship Specialty Start Date End Date Jaimee Palomares PA-C [address] [place] [address] PCP - General Family Medicine 09/09/16 Print Production Coordinator Relationship Specialty Start Date End Date Jaimee Palomares PA-C [address] [place], [place] [address] PCP - General Family Medicine 09/09/16 Print Production Coordinator Relationship Specialty Start Date End Date Jaimee Palomares PA-C [address] [place], [place] [address] PCP - General Family Medicine 09/09/16 PRN [...] BE BASED ON THE PRIMARY CLINICAL RECORDS. [employer] provides no warranty or guarantee of the accuracy or completeness of information in this document.
[2023-06-17 01:03] LABS: Color, Urine Yellow (Yellow); Glucose, Dipstick Normal (Normal); Ketone-Dipstick Negative (Negative); Leukocyte Esterase-Dipstick Negative /ul (Negative); Nitrite-Dipstick Negative (Negative); Occult Blood-Urine Negative /ul (Negative); Protein-Dipstick 15 mg/dl (Negative); Specific Gravity, Urine 1.015 (1.002-1.030); Urine Bilirubin Dipstick Negative (Negative); Urine Clarity Clear (Clear); Urine Urobilinogen Normal (Normal)
[2023-06-17] MEDS: 0.9% Saline Lock 10 ML Syringe IV (01:42)
--- NOTE | 2023-06-17 01:54 | MDS.RN ---
Patient rated pain 20/10. This RN went to warm up a frozen meal for her and to get pain medication. Upon returning patient was asleep and snoring. Patient not awakened.
[2023-06-17 05:53] LABS: Hematocrit 36.3 % (37-47); Hemoglobin 11.9 g/dL (12.0-15.0); Mean Corp Hgb Conc 32.8 g/dL (32-36); Mean Corpuscular Hgb 29.2 pg (27.0-32.0); Mean Corpuscular Volume 89.2 fL (81-99); Mean Platelet Vol. 9.9 fl (6.2-12.0); Platelet Count 306 K/mm3 (150-450); RBC Distribution Width CV 13.3 % (11.6-14.6); RBC Distribution Width SD 43.8 fl (35.1-43.9); Red Blood Count 4.07 M/mm3 (4.2-5.4); White Blood Count 6.2 K/mm3 (4.4-11.0)
[2023-06-17] MEDS: Pregabalin 75 MG Capsule 150 MG PO ×3 (06:30→22:19)
[2023-06-17] MEDS: Acetaminophen 500 MG Tablet 1000 MG PO ×3 (06:30→22:20)
[2023-06-17] MEDS: Levothyroxine 25 MCG TABLET PO (06:30)
[2023-06-17] MEDS: oxyCODONE 5 MG Tablet PO (06:44)
[2023-06-17 06:49] LABS: Anion Gap 6 (5-15); BUN 16 mg/dL (7-18); BUN/Creat Ratio 24.5 RATIO (10-20); Calcium,Total 8.2 mg/dL (8.5-10.1); Chloride 112 mmol/L (98-107); Creatinine, Serum 0.65 mg/dL (0.55-1.02); EST Glomerular Filtration Rate 100 mL/min (>60); Est Glom Filt Rate - Afr Amer 121 mL/min (>60); Glucose 100 mg/dL (74-106); Potassium 3.9 mmol/L (3.5-5.1); Sodium Level 142 mmol/L (136-145)
[2023-06-17] MEDS: Ipratropium/Albuterol Sulfate 3 ML AMPUL.NEB INHALATION ×3 (06:59→18:58)
[2023-06-17] MEDS: Budesonide Respules 0.5 MG/2 ML AMPUL.NEB. INHALATION ×2 (06:59→18:58)
--- NOTE | 2023-06-17 07:40 | PCM.PN.HOSP ---
Reason for Visit Reason for Visit: Diagnoses Cervicalgia (06/17/23) Weakness (06/17/23) Arthrodesis status (06/17/23) Objective Data Objective Data Vital Signs: Vital Signs Temp Pulse Resp BP Pulse Ox O2 Del Method 98.1 F 77 17 120/83 H 97 Room Air 06/17/23 06:37 06/17/23 07:01 06/17/23 07:01 06/17/23 06:37 06/17/23 07:01 06/17/23 07:01 Oxygen Delivery Method Room Air Weight: 186 lb 8.177 oz Body Mass Index (BMI) 29.2 Intake & Output: Intake and Output for Last 24 Hours 06/15/23 06/16/23 06/17/23 23:59 23:59 23:59 Intake Total 1000 / 1000 Balance 1000 / 1000 Lab / Micro Data 06/17/23 05:19 06/17/23 05:19 Labs: Laboratory Results - last 24 hr 06/16/23 22:10: WBC 7.2, RBC 4.38, Hgb 12.8, Hct 40.1, MCV 91.6, MCH 29.2, MCHC 31.9 L, RDW Std Deviation 45.1 H, RDW Coeff of Sandeep 13.3, Plt Count 325, MPV 9.7, Immature Gran % (Auto) 0.600, Neut % (Auto) 54.3, Lymph % (Auto) 21.6, Juab % (Auto) 13.0 H, Eos % (Auto) 9.9 H, Baso % (Auto) 0.6, Absolute Neuts (auto) 3.9, Absolute Lymphs (auto) 1.55, Nucleated RBC % 0, Sodium 138, Potassium 3.9, Chloride 104, Carbon Dioxide 28.0, Anion Gap 6, BUN 27 H, Creatinine 1.14 H, Estim Creat Clear Calc 56.25, Est GFR (MDRD) Af Amer 64, Est GFR (MDRD) Non-Af 53 L, BUN/Creatinine Ratio 23.7 H, Glucose 103, Calcium 9.3 06/16/23 22:20: Lactic Acid 1.5 06/17/23 00:25: Urine Color Yellow, Urine Clarity Clear, Urine pH 6.0, Ur Specific Lavina 1.015, Urine Protein 15 H, Urine Glucose (UA) Normal, Urine Ketones Negative, Urine Occult Blood Negative, Urine Nitrite Negative, Urine Bilirubin Negative, Urine Urobilinogen Normal, Ur Leukocyte Esterase Negative, Urine RBC 0 SEEN, Urine WBC 0 SEEN, Ur Squamous Epith Cells 0 SEEN, Urine Bacteria 0 SEEN, Urine Mucus 0 SEEN 06/17/23 05:19: WBC 6.2, RBC 4.07 L, Hgb 11.9 L, Hct 36.3 L, MCV 89.2, MCH 29.2, MCHC 32.8, RDW Std Deviation 43.8, RDW Coeff of Sandeep 13.3, Plt Count 306, MPV 9.9, Sodium 142, Potassium 3.9, Chloride 112 H, Carbon Dioxide 24.0, Anion Gap 6, BUN 16, Creatinine 0.65, Estim Creat Clear Calc 95.10, Est GFR (MDRD) Af Amer 121, Est GFR (MDRD) Non-Af 100, BUN/Creatinine Ratio 24.5 H, Glucose 100, Calcium 8.2 L Micro: Microbiology 06/16/23 22:55 Mucosa - Nose SARS-CoV-2, Influenza & RSV (PCR) - Final Radiography Diagnostic Testing: Radiology Impression Brain CT 06/16/23 21:37 IMPRESSION: No acute abnormality. Cervical Spine CT 06/16/23 21:37 IMPRESSION: No evidence of fracture or traumatic subluxation. Postsurgical changes C3-C5 post anterior fusion, with slight increased separation of the hardware from the vertebral body at the C3 level. Mild prevertebral edema C4-C6 may be postsurgical edema, but appears slightly increased compared to prior x-rays. ADDENDUM: 06/17/23 0053 IMPRESSION: No evidence of fracture or traumatic subluxation. Postsurgical changes C3-C5 post anterior fusion, with slight increased separation of the hardware from the vertebral body at the C3 level. Mild prevertebral edema C4-C6 may be postsurgical edema, but appears slightly increased compared to prior x-rays. N.B. : The above Results were Read Back by Nichol Resendiz MD to Juno Dunaway MD, and understanding confirmed on 06/17/2023 00:46:37 (ET). Electronically Signed: Nichol Resendiz MD at 0:36 EST , Chest X-Ray 06/16/23 21:55 IMPRESSION: No evidence of active intrathoracic disease. Electronically Signed: Nichol Resendiz MD at 22:08 EST , Physical Exam Narrative Seen and examined. Patient complains of constant severe pain over the neck/C-spine 9/10 intensity. She states he has so much pain that she could not sleep. Apparently she fell down just outside her home as she could not circuit judge the distance/floor. Patient is stated she did not trip over any objects. No LOC. She states her pain was Natrum C-spines and then moved to shoulders along with weakness of both hands and numbness. As per the nurses she is also dropping her forks. Physical exam General: Alert, Oriented x3, Cooperative HEENT: Atraumatic, PERRLA, EOMI, Normocephalic Oral: No Gingival or Mucosal Lesions/ Ulcerations C-spine/neck: Collar over the neck. Tenderness present over C-spine. Supple, No JVD, Negative Carotid Bruits Lungs: Air entry diminished in bilateral lung bases. No crepitation/rhonchi Cardiovascular: Regular rate, Regular Rhythm, Normal S1, Normal S2, No murmurs Abdomen: Bowel Sounds Present, Soft, Non Tender, Non-Distended : No renal angle tenderness. No suprapubic tenderness. Extremities: No edema, Capillary Refill Less than 3 Seconds Skin: No rashes, No breakdown Musculoskeletal: No Tenderness to Palpation of Joints or Extremities. ROM of lower extremities intact. Neurological: Cranial nerves II-XII grossly intact, DTR 2/4. Muscle strength 4/5 of small muscles of hand, forearm. Can reach her lower extremities. No acute focal neurological deficit. Psych/Mental Status: Normal Affect, Appropriate. Assessment & Plan Assessment/Plan (1) Cervical spine pain: (2) Generalized weakness: (3) S/P cervical spinal fusion: PLAN: Plan Patient is a 53-year-old female who presented to [facility] ED on 06/17/2023 with worsening cervical spine pain and generalized weakness.Admit under inpatient status to [facility]. 1. Worsening C-spine pain, concern for hardware malfunction after recent C3-5 fusion, generalized weakness CT C-spine on admit showed postsurgical changes C3-C5 with slight increase separation of hardware from vertebral body at C3 level, mild prevertebral edema at C4-C6 slightly increased compared to prior x-rays. Generalized weakness likely due to decreasing level of exercise, poor p.o. intake in setting of pain. Orthopedics consulted. PT/OT/case management consulted. Pain control with scheduled Tylenol, Mobic, oxycodone 5 mg every 4 hours as needed. 06/17: Discussed with Dr. Chance. For now conservative management with pain control and then rehab. 2. Mild ERICA ? Creatinine 1.14, BUN 27 on admit. Baseline creatinine 0.5-0.7. Suspect prerenal etiology in setting of poor p.o. intake. S/p 1 L IV fluids in the ED. Follow-up a.m. BMP. Monitor urine output. 06/17: BUNs/creatinine 16/0.65. ERICA resolved. Chronic medical conditions: ? Hypertension: Holding home amlodipine and Toprol for now, restart as needed. ? Mood disorder/insomnia: Continue home Wellbutrin, Zyprexa, trazodone at night. ? Chronic pain: Continue home Lyrica and baclofen. ? Hyperlipidemia: Continue statin. ? COPD: Continue home inhalers. ? GERD: Continue home PPI. ? Hypothyroidism: Continue home Synthroid. DVT prophylaxis: Lovenox CODE STATUS: Full code, verified Charges/Coding Visit Charges Inpatient E&M: 91114 Subs Hosp L2
[2023-06-17] MEDS: Docusate Sodium 100 MG Capsule 200 MG PO (09:38)
[2023-06-17] MEDS: Baclofen 10 MG Tablet 5 MG PO ×2 (09:39→22:20)
[2023-06-17] MEDS: Ferrous Sulfate 325 MG Tablet PO (09:39)
[2023-06-17] MEDS: Meloxicam 15 MG Tablet PO (09:39)
[2023-06-17] MEDS: Pantoprazole Sodium 20 MG Tablet PO (09:39)
[2023-06-17] MEDS: Enoxaparin 40 MG/0.4 ML Syringe SC (09:39)
[2023-06-17] MEDS: OLANZapine 10 MG Tablet PO (09:40)
[2023-06-17] MEDS: buPROPion (SR) 150 MG Tablet.SA 300 MG PO (09:40)
[2023-06-17 10:44] LABS: GGTP 12 U/L (5-55)
[2023-06-17 11:28] LABS: Alcohol, Blood (Medical)-Serum < 3.0 mg/dL
--- NOTE | 2023-06-17 12:51 | CON.PCM.OR_ITS ---
HPI Consult Data Date of Consult: 06/17/23 HPI Narrative HPI Narrative: KAMI JARQUIN, is a 53 F who is well-known to me as she underwent C3-5 ACDF on 05/18/2023 for severe spinal cord compression and myelopathy. I was consulted as she got readmitted last night with neck pain and generalized weakness. When I entered her room, she was severely sedated and slurring her speech. I inquired about how she is doing and what led to her sudden worsening last night. She says that she was doing her dishes when a cat jumped over. She then ran after the cat outside the house and somehow stumbled and fell. Apparently, she mentions that she fell backwards and hit her head onto concrete. After this she started having neck pain and weakness all over and she was brought to the ER. Until the fall yesterday, she was recovering from her cervical spine surgery quite well. She was seen by me for her 2-week follow-up on 06/01/2023 and has shown good improvement of her strength in upper and lower extremities and was ambulating with the help of a cane. Since her admission last night she has had weakness in both upper extremities and also severe balance deficits such that she had to use a walker to go to the bathroom. She is unable to reach her head to scratch. She was able to eat solid food. She denies any dysphagia. She continues to smoke despite my previous recommendation of quitting smoking to allow healing of the fusion. I will also prescribe her external bone stimulator for cervical spine fusion healing. She says that she used it over the last week but she has forgotten it at home. She says that one of her family members will bring it in for her to use while she is here in the hospital. She denies any other injuries. [facility] Medical History Acute cholecystitis Acute hyponatremia Acute pancreatitis Alcohol abuse Alcohol withdrawal Ambulates with cane Anemia Anemia of unknown etiology Anxiety Arthritis Bipolar disorder Chronic pain COPD (chronic obstructive pulmonary disease) Depression Desire for detoxification Distal radius fracture, right Easy bruising Elevated LFTs Excessive bleeding Gastric reflux High cholesterol History of edema Hyperglycemia Hypertension Hypothyroidism Marijuana use Migraines On home oxygen therapy Osteoporosis Pulmonary embolism Pulmonary embolism Recurrent syncope Renal insufficiency Restless legs Shortness of breath on exertion Sleep apnea Smoker Transient hypotension Walker as ambulation aid Wears glasses Home Medications bupropion HCl 150 mg tablet,12 hr sustained-release (Wellbutrin SR) 300 mg PO DAILY depression 04/30/21 [History Last Taken 06/16/23] ferrous sulfate 325 mg (65 mg iron) tablet 325 mg PO BID supplement 04/30/21 [History Last Taken 06/16/23] levothyroxine 25 mcg tablet 25 mcg PO DAILY hypothyroid 04/30/21 [History Last Taken 06/16/23] tiotropium bromide 2.5 mcg/actuation mist for inhalation (Spiriva Respimat) 2 puff inhalation DAILY COPD 04/30/21 [History Last Taken 06/16/23] albuterol sulfate 2.5 mg/3 mL (0.083 %) solution for nebulization 2.5 mg inhalation Q6H PRN PRN Shortness Of Breath Or Wheezing 10/12/21 [History Last Taken 06/16/23] albuterol sulfate 90 mcg/actuation aerosol inhaler (Ventolin HFA) 1 puff inha lation Q4H PRN PRN Shortness Of Breath Or Wheezing 10/12/21 [History Last Taken 05/14/23 10:00 1 puff] cholecalciferol (vitamin D3) 25 mcg (1,000 unit) capsule (Vitamin D3) 25 mcg PO DAILY vitamin 10/12/21 [History Last Taken 06/16/23] atorvastatin 40 mg tablet 40 mg PO QHS cholesterol 02/03/22 [History Last Taken 06/16/23] omeprazole 20 mg capsule,delayed release 20 mg PO DAILY reflux 03/25/22 [History Last Taken 06/16/23] thiamine HCl (vitamin B1) 50 mg tablet 50 mg PO DAILY vitamin 03/25/22 [History Last Taken 06/16/23] baclofen 10 mg tablet 5 mg (1/2 x 10 mg) PO BID pain #30 tabs 05/06/22 [Rx Last Taken 06/16/23] cyanocobalamin (vitamin B-12) 1,000 mcg tablet (Vitamin B-12) 1,000 mcg PO DAILY supplement 07/27/22 [History Last Taken 06/16/23] mirabegron 25 mg tablet,extended release 24 hr (Myrbetriq) 25 mg PO DAILY OVERACTIVE BLADDER 07/27/22 [History Last Taken 06/16/23] olanzapine 10 mg tablet 10 mg PO DAILY MOOD 10/28/22 [History Last Taken 06/16/23] oxybutynin chloride 10 mg tablet,extended release 24 hr 10 mg PO DAILY OVERACTIVE BLADDER 10/28/22 [History Last Taken 06/16/23] trazodone 150 mg tablet 150 mg PO QHS SLEEP 10/28/22 [History Last Taken 06/16/23] amlodipine 10 mg tablet 10 mg PO DAILY bp #30 tabs 12/29/22 [Rx Last Taken 06/16/23] metoprolol succinate 50 mg tablet,extended release 24 hr 50 mg PO DAILY bp 05/15/23 [History Last Taken 06/16/23] budesonide 0.5 mg/2 mL suspension for nebulization 0.5 mg (2 mL) inhalation Q12H.RT #0 mL 05/23/23 [Rx Last Taken 06/16/23] famotidine 20 mg tablet 20 mg PO QHS #0 tabs 05/23/23 [Rx Last Taken 06/16/23] nut.tx.comp. immune systm,reg 0.08 gram-1.4 kcal/mL oral liquid (Ensure Surgery) 237 ml PO TIDCM #0 mL 05/23/23 [Rx Last Taken 06/08/23] oxycodone 5 mg tablet 5 mg PO Q4H PRN PRN Pain Score 6-10 3 days #14 tabs 10/10 [Rx Last Taken Unknown] pregabalin 150 mg capsule (Lyrica) 150 mg PO TID pain 3 days #9 caps 05/23/23 [Rx Last Taken 06/16/23] meloxicam 15 mg tablet 15 mg PO DAILY pain 1 month #30 tabs 06/02/23 [Rx Last Taken 06/16/23] acetaminophen 650 mg tablet,extended release (Tylenol 8 Hour) 650 mg PO Q8H PRN pain 06/17/23 [History Last Taken 06/16/23] Allergy/AdvReac Type Severity Reaction Status Date / Time fentanyl Allergy Anaphylaxis Verified 06/16/23 20:52 varenicline [From Chantix] AdvReac hallucinati Verified 06/16/23 20:52 ons Family History Other Cancer Surgical History H/O skin graft H/O: hysterectomy Hx of cholecystectomy Hx of tonsillectomy Social History household members: none Smoking Status: Current every day smoker tobacco type: cigarettes alcohol intake: former substance use type: marijuana additional social history: disabled Vital Signs Vital Signs Vital Signs: 06/16/23 20:53 06/16/23 20:52 06/17/23 00:26 Temperature 96.9 F L Temperature Source Temporal Pulse Rate 73 78 Respiratory Rate 18 16 Respiratory Effort Respiratory Depth Respiratory Pattern Blood Pressure 87/67 L 104/92 H 121/85 H Blood Pressure Mean 73 96 97 Blood Pressure Source Blood Pressure Position Blood Pressure Location Pulse Ox 98 95 Oxygen Delivery Method Room Air Room Air 06/17/23 00:35 06/17/23 01:11 06/17/23 00:52 Temperature 97.7 F L Temperature Source Oral Pulse Rate 78 76 Respiratory Rate 17 18 Respiratory Effort Normal Non-Labored Respiratory Depth Normal Respiratory Pattern Normal Blood Pressure 121/85 H 137/93 H Blood Pressure Mean 97 107 Blood Pressure Source Monitor Blood Pressure Position Semi-Fowlers Blood Pressure Location Right Arm Pulse Ox 96 97 Oxygen Delivery Method Room Air Room Air 06/17/23 06:37 06/17/23 07:01 06/17/23 07:01 Temperature 98.1 F Temperature Source Oral Pulse Rate 83 77 Respiratory Rate 18 17 Respiratory Effort Respiratory Depth Respiratory Pattern Normal Blood Pressure 120/83 H Blood Pressure Mean 95 Blood Pressure Source Monitor Blood Pressure Position Semi-Fowlers Blood Pressure Location Right Arm Pulse Ox 93 97 Oxygen Delivery Method Room Air Room Air 06/17/23 08:44 Temperature 98.6 F Temperature Source Oral Pulse Rate 83 Respiratory Rate 18 Respiratory Effort Respiratory Depth Respiratory Pattern Blood Pressure 104/77 Blood Pressure Mean 86 Blood Pressure Source Monitor Blood Pressure Position Semi-Fowlers Blood Pressure Location Left Arm Pulse Ox 94 Oxygen Delivery Method Room Air Weight Weight: 186 lb 8.177 oz Body Mass Index (BMI) 29.2 Physical Exam Narrative Examination of the neck shows incision well-healed. She has pain bilaterally in the paraspinal region. Collar was loose when I arrived and I tightened it to fit snugly. Neurologic evaluation of upper and lower extremity shows grade 4 - power in all muscles in the upper extremities, and grade 4 in lower extremities. Terrance's is negative. Lab / Micro Data 06/17/23 05:19 06/17/23 05:19 Labs: Laboratory Results - last 24 hr 06/16/23 22:10: WBC 7.2, RBC 4.38, Hgb 12.8, Hct 40.1, MCV 91.6, MCH 29.2, MCHC 31.9 L, RDW Std Deviation 45.1 H, RDW Coeff of Sandeep 13.3, Plt Count 325, MPV 9.7, Immature Gran % (Auto) 0.600, Neut % (Auto) 54.3, Lymph % (Auto) 21.6, [place] % (Auto) 13.0 H, Eos % (Auto) 9.9 H, Baso % (Auto) 0.6, Absolute Neuts (auto) 3.9, Absolute Lymphs (auto) 1.55, Nucleated RBC % 0, Sodium 138, Potassium 3.9, Chloride 104, Carbon Dioxide 28.0, Anion Gap 6, BUN 27 H, Creatinine 1.14 H, Estim Creat Clear Calc 56.25, Est GFR (MDRD) Af Amer 64, Est GFR (MDRD) Non-Af 53 L, BUN/Creatinine Ratio 23.7 H, Glucose 103, Calcium 9.3 06/16/23 22:20: Lactic Acid 1.5 06/17/23 00:25: Urine Color Yellow, Urine Clarity Clear, Urine pH 6.0, Ur Specific [place] 1.015, Urine Protein 15 H, Urine Glucose (UA) Normal, Urine Ketones Negative, Urine Occult Blood Negative, Urine Nitrite Negative, Urine Bilirubin Negative, Urine Urobilinogen Normal, Ur Leukocyte Esterase Negative, Urine RBC 0 SEEN, Urine WBC 0 SEEN, Ur Squamous Epith Cells 0 SEEN, Urine Bacteria 0 SEEN, Urine Mucus 0 SEEN 06/17/23 05:19: WBC 6.2, RBC 4.07 L, Hgb 11.9 L, Hct 36.3 L, MCV 89.2, MCH 29.2, MCHC 32.8, RDW Std Deviation 43.8, RDW Coeff of Sandeep 13.3, Plt Count 306, MPV 9.9, Sodium 142, Potassium 3.9, Chloride 112 H, Carbon Dioxide 24.0, Anion Gap 6, BUN 16, Creatinine 0.65, Estim Creat Clear Calc 95.10, Est GFR (MDRD) Af Amer 121, Est GFR (MDRD) Non-Af 100, BUN/Creatinine Ratio 24.5 H, Glucose 100, Calcium 8.2 L, GGT 12 06/17/23 10:48: Ethyl Alcohol < 3.0 Micro: Microbiology 06/16/23 22:55 Mucosa - Nose SARS-CoV-2, Influenza & RSV (PCR) - Final Imagaing Radiology Impression Brain CT 06/16/23 21:37 IMPRESSION: No acute abnormality. Electronically Signed: Nichol Resendiz MD at 0:18 EST Reading Location ID and State: [place] / [place] [employer] , Service support , Cervical Spine CT 06/16/23 21:37 IMPRESSION: No evidence of fracture or traumatic subluxation. Postsurgical changes C3-C5 post anterior fusion, with slight increased separation of the hardware from the vertebral body at the C3 level. Mild prevertebral edema C4-C6 may be postsurgical edema, but appears slightly increased compared to prior x-rays. Electronically Signed: Nichol Resendiz MD at 0:36 EST Reading Location ID and State: [id number] / [place] [employer] , Service support , ADDENDUM: 06/17/23 0053 IMPRESSION: No evidence of fracture or traumatic subluxation. Postsurgical changes C3-C5 post anterior fusion, with slight increased separation of the hardware from the vertebral body at the C3 level. Mild prevertebral edema C4-C6 may be postsurgical edema, but appears slightly increased compared to prior x-rays. N.B. : The above Results were Read Back by Nichol Resendiz MD to Juno Dunaway MD, and understanding confirmed on 06/17/2023 00:46:37 (ET). Electronically Signed: Nichol Resendiz MD at 0:36 EST Reading Location ID and State: [email or web address] / [place] [employer] , Service support , Chest X-Ray 06/16/23 21:55 IMPRESSION: No evidence of active intrathoracic disease. Electronically Signed: Nichol Resendiz MD at 22:08 EST , Assessment & Plan Assessment/Plan (1) S/P cervical spinal fusion: (2) Closed C3 fracture: QUALIFIERS: Encounter type: initial encounter Fracture morphology: unspecified fracture morphology Fracture alignment: displaced Qualified Code(s): S12.200A - Unspecified displaced fracture of third cervical vertebra, initial encounter for closed fracture PLAN: Plan I reviewed her CT cervical spine from overnight. She has developed fracture of the lower portion of her C3 body such that the C3-4 graft has subsided. C3 screws appear to have pulled out along with the plate. C4 and C5 screws remain intact with good stability. Mild extrusion of C3-4 graft noted. I explained her imaging findings in detail to Kami. She seems to have had a bad fall and hit her head on concrete last night which caused her new C3 vertebral body fracture. While there is C3 screw loosening and mild graft extrusion at C3-4, she has good stability of her construct from C4-C5. I discussed the imaging in detail with Dr. Wright, my spine surgery colleague. At this time, I would like her to maintain rigid collar immobilization full-time, and monitor her radiographically very closely to see for further displacement. If additional displacement is seen, she may require additional posterior fixation. Possibility of halo vest immobilization if needed was also discussed. At this time, patient has shown loss of full grade of strength in all 4 extremities likely from spinal cord contusion related to the fall last night. While this is a significant drop in her function, at this time I would like her to start on IV steroids to see if these improve her strength. I will continue to monitor her. She was started on 4 mg IV 3 times daily Decadron IV. I also requested her to have her family member bring in the external bone stimulator for her to use while in the hospital. If her neurological exam and fracture morphology continue to be stable, she will likely need rehab placement. Patient was in agreement.
[2023-06-17 12:57] LABS: Bedside Glucose 110 mg/dL (74-106)
--- NOTE | 2023-06-17 14:41 | CASEMGMT ---
As per therapy, pt agreeable to inpt rehab at [facility]. SW called the inpt rehab, no beds available until late next week. SW met w/pt in room, pt fell asleep multiple times during our conversation, SW continually woke pt. SW explained to pt that there are no beds in our rehab unit. Pt would like to go somewhere in or near [place] for rehab. SW provided to pt a list of half-way facilities to pt via [employer], in network w/pt's insurance, in pt's preferred geographic area, and complete with quality and resource use data. Pt states does not want to go to [facility], where she was last time. SW reviewed the list w/pt, she is agreeable to a referral to [facility]. SW explained to pt that she may get stuck here until Tuesday waiting for acceptance and insurance authorization. Pt states understanding. SW did inquire w/pt if she had been drinking since she was home from [facility], pt states no. D/C emergency planning and response manager Shruthi will send referral to [facility]. SW will continue to follow. SHAN Ro
--- NOTE | 2023-06-17 14:51 | CASEMGMT ---
Addendum entered by Shruthi Saunders 06/21/23 11:01: [facility] declined. SW updated. Shruthi Saunders, Discharge Planning Asst. Addendum entered by Shruthi Saunders 06/21/23 09:46: Discharge Planning Call placed to [facility] to check on status of referral. Msg left for admissions cooordinator. Shruthi Saba, Discharge Planning Asst. Original Note: Discharge Planning Referral sent to [facility] via [employer]. Shruthi Saunders, Discharge Planning Asst.
--- NOTE | 2023-06-17 15:41 | CASEMGMT ---
Index: 05/17/23-05/23/23. Dx: Acute Back Pain. Readmission: 06/17/23. Dx: Generalized Weakness Pt with C3-5 spondylolisthesis with stenosis, cord compression, cord signal changes, Physical deconditioning, hyperlipidemia, chronic pain, hypothyroidism, HTN, GERD, COPD, and tobacco dependence, was admitted on the above noted dates for the corresponding dx?s. On index admission, pt presented with multiple falls at home, weakness in all 4 extremities, difficulty with dexterity and eating, and neck pain. The pt underwent C3-5 anterior cervical discectomy and fusion with plate instrumentation by Dr. Kendall Skinner on 05/18/2023. Pt was DC to [facility]. Pt was there x1 week. Pt states that she did not have a good experience their and does not want to go back. The DC plan for the pt on index admission was for the pt to wear her collar at all times. Pt states that she did this. Pt was to f/u with Dr. Chance. Pt states she saw Dr. Skinner on 06/01 and that she was doing well at that time other than soreness and tingling in her arms. Pt states that she was able to ambulate multiple times per day for strengthening. Pt was to continue home medications and start new prescriptions and stated compliancy to this RN SAUL. On readmission, pt came with worsening cervical spine pain and generalized weakness. Pt has had increased falls recently. Pt also is experiencing mild ERICA. Ortho is consulted. PT is consulted and saw pt today, see note. Per Dr. Skinner's note, the pt seems to have had a fall last night which caused a new C3 vertebral body fracture. The plan is for her to maintain rigid collar immobilization. Possible halo vest immobilization. Pt to start on IV steroids to help improve her strength. CM/ SW will follow. Paul Carson RN, CM
[2023-06-17 19:33] LABS: Amphetamine Urine VISTA POSITIVE (<1000 ng/mL); Barbiturate Urine VISTA NEGATIVE (< 200 ng/mL); Benzodiazepine Urine VISTA NEGATIVE (< 200 ng/mL); Cocaine Urine VISTA NEGATIVE (< 300 ng/mL); Ecstacy Urine VISTA POSITIVE (< 500 ng/mL); Methadone Urine VISTA NEGATIVE (< 300 ng/mL); PCP Urine VISTA NEGATIVE (< 25 ng/mL); THC Urine VISTA POSITIVE (< 50 ng/mL); Vista UDS pH Range 5
[2023-06-17] MEDS: traZODone 100 MG Tablet 150 MG PO (22:19)
[2023-06-17] MEDS: Atorvastatin Calcium 40 MG Tablet PO (22:20)
[2023-06-18] MEDS: Pregabalin 75 MG Capsule 150 MG PO ×3 (05:49→20:58)
[2023-06-18] MEDS: Levothyroxine 25 MCG TABLET PO (05:49)
[2023-06-18] MEDS: Acetaminophen 500 MG Tablet 1000 MG PO ×3 (05:49→20:58)
[2023-06-18 05:57] VITALS: BP 119/87; PULSE 83; RESP 16; TEMP 36.1; O2SAT 94
[2023-06-18 07:47] VITALS: O2SAT 95
[2023-06-18] MEDS: Enoxaparin 40 MG/0.4 ML Syringe SC (08:20)
[2023-06-18] MEDS: Baclofen 10 MG Tablet 5 MG PO ×2 (08:20→20:59)
[2023-06-18] MEDS: Ferrous Sulfate 325 MG Tablet PO (08:21)
[2023-06-18] MEDS: Docusate Sodium 100 MG Capsule 200 MG PO (08:21)
[2023-06-18] MEDS: buPROPion (SR) 150 MG Tablet.SA 300 MG PO (08:21)
[2023-06-18] MEDS: OLANZapine 10 MG Tablet PO (08:21)
[2023-06-18] MEDS: Meloxicam 15 MG Tablet PO (08:22)
[2023-06-18] MEDS: Pantoprazole Sodium 20 MG Tablet PO (08:22)
[2023-06-18 12:00] VITALS: BP 110/84; PULSE 88; RESP 16; TEMP 36.4; O2SAT 96
--- NOTE | 2023-06-18 12:34 | PN.ORTHO_ITS ---
Subjective Subjective Doing better today. Pain is better controlled today. Up on a chair today. She is ambulated few feet within the room with physical therapy. Collar well- fitting. Objective Data Objective Data Vital Signs: Vital Signs Temp Pulse Resp BP Pulse Ox O2 Del Method 97 F L 83 16 119/87 H 95 Room Air 06/18/23 05:57 06/18/23 05:57 06/18/23 05:57 06/18/23 05:57 06/18/23 07:47 06/18/23 08:28 Oxygen Delivery Method Room Air Weight: 186 lb 8.177 oz Body Mass Index (BMI) 29.2 Intake & Output: Intake and Output for Last 24 Hours 06/16/23 06/17/23 06/18/23 23:59 23:59 23:59 Intake Total 1400 / 1400 Balance 1400 / 1400 Lab / Micro Data 06/17/23 05:19 06/17/23 05:19 Labs: Laboratory Results - last 24 hr 06/17/23 00:25: Urine Opiates Screen NEGATIVE, Urine Methadone Screen NEGATIVE, Ur Barbiturates Screen NEGATIVE, Ur Phencyclidine Scrn NEGATIVE, Ur Amphetamines Screen POSITIVE H, MDMA (Ecstasy) Screen POSITIVE H, U Benzodiazepines Scrn NEGATIVE, Urine Cocaine Screen NEGATIVE, U Cannabinoids Screen POSITIVE H, Ur Drug Screen Comment 06/17/23 12:23: POC Glucose 110 H Micro: Microbiology 06/16/23 22:55 Mucosa - Nose SARS-CoV-2, Influenza & RSV (PCR) - Final Physical Exam Narrative Incision well-healed. Collar well-fitting. Neuro exam is stable compared to yesterday with grade 4 - in upper extremities and grade 4 lower extremities. Terrnace's negative. Assessment & Plan Assessment/Plan (1) Closed C3 fracture: QUALIFIERS: Encounter type: initial encounter Fracture morphology: unspecified fracture morphology Fracture alignment: displaced Qualified Code(s): S12.200A - Unspecified displaced fracture of third cervical vertebra, initial encounter for closed fracture (2) Cervical spine pain: PLAN: Plan We will continue observation for now. Continue IV steroids. We will reassess with x-rays periodically. Continue PT OT mobilization as much as tolerated. Collar should be on at all times should be snug fitting. Patient needs to obtain external bone stimulator from home to use up to 4 hours a day. Will continue to follow.
--- NOTE | 2023-06-18 15:23 | PN.HOSP_ITS ---
Reason for Visit Reason for Visit: Diagnoses Cervicalgia (06/17/23) Weakness (06/17/23) Unspecified displaced fracture of third cervical vertebra, initial encounter for closed fracture (06/17/23) Arthrodesis status (06/17/23) Objective Data Objective Data Vital Signs: Vital Signs Temp Pulse Resp BP Pulse Ox O2 Del Method 97.6 F L 88 16 110/84 H 96 Room Air 06/18/23 12:00 06/18/23 12:00 06/18/23 12:00 06/18/23 12:00 06/18/23 12:00 06/18/23 12:00 Oxygen Delivery Method Room Air Weight: 186 lb 8.177 oz Body Mass Index (BMI) 29.2 Intake & Output: Intake and Output for Last 24 Hours 06/16/23 06/17/23 06/18/23 23:59 23:59 23:59 Intake Total 1400 / 1400 250 / 250 Balance 1400 / 1400 250 / 250 Lab / Micro Data 06/17/23 05:19 06/17/23 05:19 Labs: Laboratory Results - last 24 hr 06/17/23 00:25: Urine Opiates Screen NEGATIVE, Urine Methadone Screen NEGATIVE, Ur Barbiturates Screen NEGATIVE, Ur Phencyclidine Scrn NEGATIVE, Ur Amphetamines Screen POSITIVE H, MDMA (Ecstasy) Screen POSITIVE H, U Benzodiazepines Scrn NEGATIVE, Urine Cocaine Screen NEGATIVE, U Cannabinoids Screen POSITIVE H, Ur Drug Screen Comment Micro: Microbiology 06/16/23 22:55 Mucosa - Nose SARS-CoV-2, Influenza & RSV (PCR) - Final Physical Exam Narrative Seen and examined. Patient states her pain is 8/10 or neck work her facial expression does not go along with severe pain. She has a cervical collar. She is just little better than yesterday. 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 Patient is stated she did not trip over any objects. No LOC. She states her pain was Natrum C-spines and then moved to shoulders along with weakness of both hands and numbness. Physical exam General: Alert, Oriented x3, Cooperative HEENT: Atraumatic, PERRLA, EOMI, Normocephalic Oral: No Gingival or Mucosal Lesions/ Ulcerations C-spine/neck: Collar over the neck. Tenderness present over C-spine. Supple, No JVD, Negative Carotid Bruits Lungs: Air entry diminished in bilateral lung bases. No crepitation/rhonchi Cardiovascular: Regular rate, Regular Rhythm, Normal S1, Normal S2, No murmurs Abdomen: Bowel Sounds Present, Soft, Non Tender, Non-Distended : No renal angle tenderness. No suprapubic tenderness. Extremities: No edema, Capillary Refill Less than 3 Seconds Skin: No rashes, No breakdown Musculoskeletal: No Tenderness to Palpation of Joints or Extremities. ROM of lower extremities intact. Neurological: Cranial nerves II-XII grossly intact, DTR 2/4. Muscle strength 4/5 of small muscles of hand, forearm. Can reach her lower extremities. No acute focal neurological deficit. Psych/Mental Status: Flat affect. Assessment & Plan Assessment/Plan (1) Cervical spine pain: (2) Generalized weakness: (3) S/P cervical spinal fusion: PLAN: Plan Patient is a 53-year-old female who presented to [facility] ED on 06/17/2023 with worsening cervical spine pain and generalized weakness.Admit under inpatient status to [facility]. 1. Worsening C-spine pain, concern for hardware malfunction after recent C3-5 fusion, generalized weakness CT C-spine on admit showed postsurgical changes C3-C5 with slight increase separation of hardware from vertebral body at C3 level, mild prevertebral edema at C4-C6 slightly increased compared to prior x-rays. Generalized weakness likely due to decreasing level of exercise, poor p.o. intake in setting of pain. Orthopedics consulted. PT/OT/case management consulted. Pain control with scheduled Tylenol, Mobic, oxycodone 5 mg every 4 hours as needed. 06/17: Discussed with Dr. Chance. For now conservative management with pain control and then rehab. 06/18: Discussed with Dr. Chance. As per him, when a person went to her house to deliver stimulator she had a bottle of beer in her hand which was recently less than 2 weeks which patient states she has not drank in after surgery. 2. Mild ERICA ? Creatinine 1.14, BUN 27 on admit. Baseline creatinine 0.5-0.7. Suspect prerenal etiology in setting of poor p.o. intake. S/p 1 L IV fluids in the ED. Follow-up a.m. BMP. Monitor urine output. 06/17: BUNs/creatinine 16/0.65. ERICA resolved. Chronic medical conditions: ? Hypertension: Holding home amlodipine and Toprol for now, restart as needed. ? Mood disorder/insomnia: Continue home Wellbutrin, Zyprexa, trazodone at night. ? Chronic pain: Continue home Lyrica and baclofen. ? Hyperlipidemia: Continue statin. ? COPD: Continue home inhalers. ? GERD: Continue home PPI. ? Hypothyroidism: Continue home Synthroid. DVT prophylaxis: Lovenox CODE STATUS: Full code, verified Charges/Coding Visit Charges Inpatient E&M: 59251 Subs Hosp L2
[2023-06-18] MEDS: Senna/Docusate Sodium 1 Tablet 2 TABLET PO (17:09)
[2023-06-18] MEDS: Polyethylene Glycol 3350 17 GM PACKET PO (17:09)
[2023-06-18] MEDS: oxyCODONE 5 MG Tablet PO (17:09)
[2023-06-18 17:26] VITALS: BP 128/72; PULSE 88; RESP 16; TEMP 36.7; O2SAT 97
[2023-06-18 19:25] VITALS: PULSE 87; RESP 16
[2023-06-18] MEDS: Budesonide Respules 0.5 MG/2 ML AMPUL.NEB. INHALATION (19:25)
[2023-06-18] MEDS: Albuterol 2.5 MG/3 ML VIAL.NEB. INHALATION (19:25)
[2023-06-18] MEDS: Atorvastatin Calcium 40 MG Tablet PO (20:58)
[2023-06-18] MEDS: traZODone 100 MG Tablet 150 MG PO (20:58)
[2023-06-18 21:08] VITALS: BP 136/90; PULSE 90; RESP 16; TEMP 36.4; O2SAT 92
[2023-06-19] VITALS (7 sets, daily range): BP systolic 121–144; BP diastolic 85–91; PULSE 69–98; RESP 16–26; TEMP 36.6–36.8; O2SAT 93–100
[2023-06-19] MEDS: Pregabalin 75 MG Capsule 150 MG PO ×3 (05:20→21:31)
[2023-06-19] MEDS: Acetaminophen 500 MG Tablet 1000 MG PO ×3 (05:20→21:31)
[2023-06-19] MEDS: Levothyroxine 25 MCG TABLET PO (05:20)
[2023-06-19] MEDS: Ipratropium/Albuterol Sulfate 3 ML AMPUL.NEB INHALATION ×3 (07:06→20:15)
[2023-06-19] MEDS: Budesonide Respules 0.5 MG/2 ML AMPUL.NEB. INHALATION ×2 (07:06→20:15)
[2023-06-19] MEDS: Senna/Docusate Sodium 1 Tablet 2 TABLET PO ×2 (08:25→21:31)
[2023-06-19] MEDS: Polyethylene Glycol 3350 17 GM PACKET PO ×2 (08:26→21:32)
[2023-06-19] MEDS: Baclofen 10 MG Tablet 5 MG PO ×2 (08:27→21:31)
[2023-06-19] MEDS: Meloxicam 15 MG Tablet PO (08:27)
[2023-06-19] MEDS: Ferrous Sulfate 325 MG Tablet PO (08:27)
[2023-06-19] MEDS: Enoxaparin 40 MG/0.4 ML Syringe SC (08:27)
[2023-06-19] MEDS: OLANZapine 10 MG Tablet PO (08:28)
[2023-06-19] MEDS: buPROPion (SR) 150 MG Tablet.SA 300 MG PO (08:29)
[2023-06-19] MEDS: Pantoprazole Sodium 20 MG Tablet PO (08:29)
[2023-06-19] MEDS: oxyCODONE 5 MG Tablet PO ×2 (08:47→21:42)
--- NOTE | 2023-06-19 10:42 | PN.HOSP_ITS ---
Reason for Visit Reason for Visit: Diagnoses Cervicalgia (06/17/23) Weakness (06/17/23) Unspecified displaced fracture of third cervical vertebra, initial encounter for closed fracture (06/17/23) Arthrodesis status (06/17/23) Objective Data Objective Data Vital Signs: Vital Signs Temp Pulse Resp BP Pulse Ox O2 Del Method O2 Flow Rate 97.9 F 78 16 121/91 H 100 Room Air 2 06/19/23 08:42 06/19/23 08:42 06/19/23 08:42 06/19/23 08:42 06/19/23 08:42 06/19/23 08:42 06/19/23 07:06 Oxygen Flow Rate (L/min) 2 Oxygen Delivery Method Room Air Weight: 186 lb 8.177 oz Body Mass Index (BMI) 29.2 Intake & Output: Intake and Output for Last 24 Hours 06/17/23 06/18/23 06/19/23 23:59 23:59 23:59 Intake Total 1400 / 1400 650 / 850 400 / 400 Balance 1400 / 1400 650 / 850 400 / 400 Lab / Micro Data 06/17/23 05:19 06/17/23 05:19 Micro: Microbiology 06/16/23 22:55 Mucosa - Nose SARS-CoV-2, Influenza & RSV (PCR) - Final Physical Exam Narrative Seen and examined. She did not had a bowel movement for about 3 days. Her neck pain is better about 6-7/10 intensity. Physical exam General: Alert, Oriented x3, Cooperative HEENT: Atraumatic, PERRLA, EOMI, Normocephalic Oral: No Gingival or Mucosal Lesions/ Ulcerations C-spine/neck: Collar over the neck. Tenderness present over C-spine. Supple, No JVD, Negative Carotid Bruits Lungs: Air entry diminished in bilateral lung bases. No crepitation/rhonchi Cardiovascular: Regular rate, Regular Rhythm, Normal S1, Normal S2, No murmurs Abdomen: Bowel Sounds Present, Soft, Non Tender, Non-Distended : No renal angle tenderness. No suprapubic tenderness. Extremities: No edema, Capillary Refill Less than 3 Seconds Skin: No rashes, No breakdown Musculoskeletal: No Tenderness to Palpation of Joints or Extremities. ROM of lower extremities intact. Neurological: Cranial nerves II-XII grossly intact, DTR 2/4. Muscle strength 4/5 of small muscles of hand, forearm. Can reach her lower extremities. No a cute focal neurological deficit. Psych/Mental Status: Flat affect. Assessment & Plan Assessment/Plan (1) Cervical spine pain: (2) Generalized weakness: (3) S/P cervical spinal fusion: PLAN: Plan Patient is a 53-year-old female who presented to [facility] ED on 06/17/2023 with worsening cervical spine pain and generalized weakness. 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 Patient is stated she did not trip over any objects. No LOC. She states her pain or units from C-spines and then moved to shoulders along with weakness of both hands and numbness. 1. Worsening C-spine pain, concern for hardware malfunction after recent C3-5 fusion, generalized weakness: [facility] C-spine on admit showed postsurgical changes C3-C5 with slight increase separation of hardware from vertebral body at C3 level, mild prevertebral edema at C4-C6 slightly increased compared to prior x-rays. Generalized weakness likely due to decreasing level of exercise, poor p.o. intake in setting of pain. Orthopedics consulted. PT/OT/case management consulted. Pain control with scheduled Tylenol, Mobic, oxycodone 5 mg every 4 hours as needed. 06/17: Discussed with Dr. Chance. For now conservative management with pain control and then rehab. 06/18: Discussed with Dr. Chance. As per him, when a person went to her house to deliver stimulator she had a bottle of beer in her hand which was recently less than 2 weeks which patient states she has not drank in after surgery. 06/19: Pain is getting better. Continue PT and OT. Patient has constipation. On MiraLAX, senna S and Dulcolax suppository ordered. Discharge plan: Need SNF pre-CERT 2. Mild ERICA ? Creatinine 1.14, BUN 27 on admit. Baseline creatinine 0.5-0.7. Suspect prerenal etiology in setting of poor p.o. intake. S/p 1 L IV fluids in the ED. Follow-up a.m. BMP. Monitor urine output. 06/17: BUNs/creatinine 16/0.65. ERICA resolved. Chronic medical conditions: ? Hypertension: Holding home amlodipine and Toprol for now, restart as needed. ? Mood disorder/insomnia: Continue home Wellbutrin, Zyprexa, trazodone at night. ? Chronic pain: Continue home Lyrica and baclofen. ? Hyperlipidemia: Continue statin. ? COPD: Continue home inhalers. ? GERD: Continue home PPI. ? Hypothyroidism: Continue home Synthroid. DVT prophylaxis: Lovenox CODE STATUS: Full code, verified Charges/Coding Visit Charges Inpatient E&M: 83260 Subs Hosp L2
[2023-06-19] MEDS: Bisacodyl 10 MG Suppository RC (12:54)
[2023-06-19] MEDS: traZODone 100 MG Tablet 150 MG PO (21:30)
[2023-06-19] MEDS: Atorvastatin Calcium 40 MG Tablet PO (21:32)
[2023-06-20 02:45] VITALS: BP 127/88; PULSE 82; RESP 16; TEMP 36.1; O2SAT 93
[2023-06-20] MEDS: Pregabalin 75 MG Capsule 150 MG PO ×3 (06:34→23:21)
[2023-06-20] MEDS: Acetaminophen 500 MG Tablet 1000 MG PO ×3 (06:34→23:19)
[2023-06-20] MEDS: Levothyroxine 25 MCG TABLET PO (06:34)
[2023-06-20] MEDS: Budesonide Respules 0.5 MG/2 ML AMPUL.NEB. INHALATION ×2 (08:07→19:07)
[2023-06-20] MEDS: Ipratropium/Albuterol Sulfate 3 ML AMPUL.NEB INHALATION ×2 (08:07→19:07)
[2023-06-20 08:08] VITALS: PULSE 94; RESP 18; O2SAT 92
[2023-06-20] MEDS: oxyCODONE 5 MG Tablet PO (08:52)
[2023-06-20] MEDS: Baclofen 10 MG Tablet 5 MG PO ×2 (08:52→23:19)
[2023-06-20] MEDS: buPROPion (SR) 150 MG Tablet.SA 300 MG PO (08:53)
[2023-06-20] MEDS: Ferrous Sulfate 325 MG Tablet PO (08:53)
[2023-06-20] MEDS: Senna/Docusate Sodium 1 Tablet 2 TABLET PO ×2 (08:53→23:18)
[2023-06-20] MEDS: Meloxicam 15 MG Tablet PO (08:53)
[2023-06-20] MEDS: Pantoprazole Sodium 20 MG Tablet PO (08:54)
[2023-06-20] MEDS: OLANZapine 10 MG Tablet PO (08:54)
[2023-06-20] MEDS: Enoxaparin 40 MG/0.4 ML Syringe SC (08:54)
[2023-06-20 09:06] VITALS: BP 138/96; PULSE 97; RESP 16; TEMP 36.9; O2SAT 93
--- NOTE | 2023-06-20 10:42 | PN.ORTHO_ITS ---
Subjective Subjective Please doing better. Neck pain is much better controlled now. Has had left- sided lower extremity sciatica pain worsened since morning. Upper extremities feel stronger. Collar well-fitting. Has been working with p hysical therapy and ambulating to some extent. Denies dysphagia. Objective Data Objective Data Vital Signs: Vital Signs Temp Pulse Resp BP Pulse Ox O2 Del Method O2 Flow Rate 98.4 F 97 16 138/96 H 93 Room Air 2 06/20/23 09:06 06/20/23 09:06 06/20/23 09:06 06/20/23 09:06 06/20/23 09:06 06/20/23 09:09 06/19/23 07:06 Oxygen Flow Rate (L/min) 2 Oxygen Delivery Method Room Air Weight: 186 lb 8.177 oz Body Mass Index (BMI) 29.2 Intake & Output: Intake and Output for Last 24 Hours 06/18/23 06/19/23 06/20/23 23:59 23:59 23:59 Intake Total 650 / 850 1320 / 1600 530 / 530 Balance 650 / 850 1320 / 1600 530 / 530 Lab / Micro Data 06/17/23 05:19 06/17/23 05:19 Micro: Microbiology 06/16/23 22:55 Mucosa - Nose SARS-CoV-2, Influenza & RSV (PCR) - Final Physical Exam Narrative Neck incision well-healed. Neurologic evaluation shows 4+ power in all 4 extremities, much improved from Tuesday's exam. Assessment & Plan Assessment/Plan (1) Closed C3 fracture: QUALIFIERS: Encounter type: initial encounter Fracture morphology: unspecified fracture morphology Fracture alignment: displaced Qualified Code(s): S12.200A - Unspecified displaced fracture of third cervical vertebra, initial encounter for closed fracture (2) S/P cervical spinal fusion: (3) Cervical myelopathy: PLAN: Plan Patient doing better, such that strength has improved with IV steroid treatment. Okay to taper down on IV steroids now. Continue PT OT Mobilization. Will discuss with PT and social work tomorrow regarding possibility of rehab placement if appropriate.
--- NOTE | 2023-06-20 12:51 | PN.HOSP_ITS ---
Reason for Visit Reason for Visit: Diagnoses Disease of spinal cord, unspecified (06/17/23) Cervicalgia (06/17/23) Weakness (06/17/23) Unspecified displaced fracture of third cervical vertebra, initial encounter for closed fracture (06/17/23) Arthrodesis status (06/17/23) Objective Data Objective Data Vital Signs: Vital Signs Temp Pulse Resp BP Pulse Ox O2 Del Method O2 Flow Rate 98.4 F 97 16 138/96 H 93 Room Air 2 06/20/23 09:06 06/20/23 09:06 06/20/23 09:06 06/20/23 09:06 06/20/23 09:06 06/20/23 09:09 06/19/23 07:06 Oxygen Flow Rate (L/min) 2 Oxygen Delivery Method Room Air Weight: 186 lb 8.177 oz Body Mass Index (BMI) 29.2 Intake & Output: Intake and Output for Last 24 Hours 06/18/23 06/19/23 06/20/23 23:59 23:59 23:59 Intake Total 650 / 850 1320 / 1600 530 / 530 Balance 650 / 850 1320 / 1600 530 / 530 Lab / Micro Data 06/17/23 05:19 06/17/23 05:19 Micro: Microbiology 06/16/23 22:55 Mucosa - Nose SARS-CoV-2, Influenza & RSV (PCR) - Final Physical Exam Narrative Seen and examined. Patient had bowel movement today. Her pain is same but controlled on the pain medications. No new symptoms. Physical exam General: Alert, Oriented x3, Cooperative HEENT: Atraumatic, PERRLA, EOMI, Normocephalic Oral: No Gingival or Mucosal Lesions/ Ulcerations C-spine/neck: Collar around the neck. Tenderness present over C-spine. Supple, No JVD, Negative Carotid Bruits Lungs: Air entry diminished in bilateral lung bases. No crepitation/rhonchi Cardiovascular: Regular rate, Regular Rhythm, Normal S1, Normal S2, No murmurs Abdomen: Bowel Sounds Present, Soft, Non Tender, Non-Distended : No renal angle tenderness. No suprapubic tenderness. Extremities: No edema, Capillary Refill Less than 3 Seconds Skin: No rashes, No breakdown Musculoskeletal: No Tenderness to Palpation of Joints or Extremities. ROM of lower extremities intact. Neurological: Cranial nerves II-XII grossly intact, DTR 2/4. Muscle strength 4/5 of small muscles of hand, forearm. No acute focal neurological deficit. Psych/Mental Status: Flat affect. Assessment & Plan Assessment/Plan (1) Cervical spine pain: (2) Generalized weakness: (3) S/P cervical spinal fusion: PLAN: Plan Patient is a 53-year-old female who presented to [facility] ED on 06/17/2023 with worsening cervical spine pain and generalized weakness. 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 Patient is stated she did not trip over any objects. No LOC. She states her pain or units from C-spines and then moved to shoulders along with weakness of both hands and numbness. 1. Worsening C-spine pain, concern for hardware malfunction after recent C3-5 fusion, generalized weakness: [facility]-spine on admit showed postsurgical changes C3-C5 with slight increase separation of hardware from vertebral body at C3 level, mild prevertebral edema at C4-C6 slightly increased compared to prior x-rays. Generalized weakness likely due to decreasing level of exercise, poor p.o. intake in setting of pain. Orthopedics consulted. PT/OT/case management consulted. Pain control with scheduled Tylenol, Mobic, oxycodone 5 mg every 4 hours as needed. 06/17: Discussed with Dr. Chance. For now conservative management with pain control and then rehab. 06/18: Discussed with Dr. Chance. As per him, when a person went to her house to deliver stimulator she had a bottle of beer in her hand which was recently less than 2 weeks which patient states she has not drank in after surgery. 06/19: Pain is getting better. Continue PT and OT. Patient has constipation. On MiraLAX, senna S and Dulcolax suppository ordered. Discharge plan: Need SNF pre-CERT 06/20/2023: Pain is same. Patient moved her bowels. 2. Mild ERICA ? Creatinine 1.14, BUN 27 on admit. Baseline creatinine 0.5-0.7. Suspect prer enal etiology in setting of poor p.o. intake. S/p 1 L IV fluids in the ED. Follow-up a.m. BMP. Monitor urine output. 06/17: BUNs/creatinine 16/0.65. ERICA resolved. Chronic medical conditions: ? Hypertension: Holding home amlodipine and Toprol for now, restart as needed. ? Mood disorder/insomnia: Continue home Wellbutrin, Zyprexa, trazodone at night. ? Chronic pain: Continue home Lyrica and baclofen. ? Hyperlipidemia: Continue statin. ? COPD: Continue home inhalers. ? GERD: Continue home PPI. ? Hypothyroidism: Continue home Synthroid. DVT prophylaxis: Lovenox CODE STATUS: Full code, verified Charges/Coding Visit Charges Inpatient E&M: 54063 Subs Hosp L2
[2023-06-20 15:05] VITALS: BP 149/86; PULSE 93; RESP 16; TEMP 36.9; O2SAT 94
[2023-06-20 19:07] VITALS: PULSE 86; RESP 14
[2023-06-20 23:14] VITALS: BP 147/100; PULSE 79; RESP 20; TEMP 36.5; O2SAT 93
[2023-06-20] MEDS: Atorvastatin Calcium 40 MG Tablet PO (23:19)
[2023-06-20] MEDS: traZODone 100 MG Tablet 150 MG PO (23:20)
[2023-06-21 02:03] VITALS: BP 146/95; PULSE 85; RESP 18; TEMP 36.3; O2SAT 98
[2023-06-21 07:00] VITALS: BP 160/108; PULSE 102; RESP 18; TEMP 36.4; O2SAT 94
[2023-06-21] MEDS: Pregabalin 75 MG Capsule 150 MG PO ×2 (07:00→15:10)
[2023-06-21] MEDS: Acetaminophen 500 MG Tablet 1000 MG PO ×2 (07:00→15:12)
[2023-06-21] MEDS: 0.9% Saline Lock 10 ML Syringe IV (07:00)
[2023-06-21] MEDS: Levothyroxine 25 MCG TABLET PO (07:00)
[2023-06-21] MEDS: Budesonide Respules 0.5 MG/2 ML AMPUL.NEB. INHALATION (07:20)
[2023-06-21] MEDS: Ipratropium/Albuterol Sulfate 3 ML AMPUL.NEB INHALATION ×2 (07:20→14:23)
[2023-06-21 07:21] VITALS: PULSE 102; RESP 18; O2SAT 91
[2023-06-21 07:48] LABS: Absolute Lymphocyte Count 1.42 X10^3/uL (0.83-4.51); Absolute Neutrophil Count 4.1 X10^3/uL (2.0-7.7); Basophil# 0.05 X10^3/uL; Basophil% 0.8 % (0-1); Eosinophil# 0.43 X10^3/uL; Eosinophils% 6.5 % (0-5); Hemoglobin 12.5 g/dL (12.0-15.0); Lymphocyte # 1.42 X10^3/ul (0.83-4.51); Lymphocyte % 21.5 % (19-41); Mean Corp Hgb Conc 32.9 g/dL (32-36); Mean Corpuscular Hgb 29.6 pg (27.0-32.0); Mean Platelet Vol. 9.9 fl (6.2-12.0); Monocyte# 0.63 X10^3/uL; Monocyte% 9.5 % (0-10); NRBC Flagged by Analyzer 0 % (0-5); Neutrophil # 4.05 X10^3/uL (2.7-7.7); Neutrophil % 61.1 % (47-70); Platelet Count 355 K/mm3 (150-450); RBC Distribution Width CV 13.2 % (11.6-14.6); RBC Distribution Width SD 43.2 fl (35.1-43.9); Red Blood Count 4.22 M/mm3 (4.2-5.4); White Blood Count 6.6 K/mm3 (4.4-11.0)
[2023-06-21] MEDS: Ferrous Sulfate 325 MG Tablet PO (08:14)
--- NOTE | 2023-06-21 08:22 | RAD_ITS ---
STUDY: X-RAY - CERVICAL SPINE REASON FOR EXAM: Female, 53 years old. cervical fusion -- pls do Upright AP, Lat in collar TECHNIQUE: AP lateral view(s) of the cervical spine were obtained. COMPARISON: None FINDINGS: Normal anterior atlantoaxial articulation. Normal odontoid process. Exaggerated cervical kyphosis possibly due to muscle spasm or positioning artifact.. Normal vertebral bodies and endplates. Postop change status post anterior fusion and disc spacer placement at C3-4, and C4-5. The soft tissue structures are unremarkable. RAD/Cerv Spine 2 or 3 Views IMPRESSION: Status post anterior fusion at C3-4 and C4-5 Electronically Signed: Mitul Brand MD at 18:42 EST ,
[2023-06-21 09:14] LABS: Anion Gap 5 (5-15); BUN 19 mg/dL (7-18); BUN/Creat Ratio 38.2 RATIO (10-20); Calcium,Total 9.5 mg/dL (8.5-10.1); Chloride 106 mmol/L (98-107); EST Glomerular Filtration Rate 137 mL/min (>60); Est Glom Filt Rate - Afr Amer 166 mL/min (>60); Estimated Creatinine Clearance 123.63 ml/min; Glucose 104 mg/dL (74-106); Potassium 4.1 mmol/L (3.5-5.1); Sodium Level 140 mmol/L (136-145)
[2023-06-21] MEDS: buPROPion (SR) 150 MG Tablet.SA 300 MG PO (09:58)
[2023-06-21] MEDS: Baclofen 10 MG Tablet 5 MG PO (09:59)
[2023-06-21] MEDS: Enoxaparin 40 MG/0.4 ML Syringe SC (10:00)
[2023-06-21] MEDS: Pantoprazole Sodium 20 MG Tablet PO (10:01)
[2023-06-21] MEDS: Meloxicam 15 MG Tablet PO (10:01)
[2023-06-21] MEDS: Senna/Docusate Sodium 1 Tablet 2 TABLET PO (10:01)
[2023-06-21] MEDS: OLANZapine 10 MG Tablet PO (10:02)
[2023-06-21] MEDS: oxyCODONE 5 MG Tablet PO (10:08)
--- NOTE | 2023-06-21 11:03 | DCINST_ITS ---
Discharge Instructions Diet Discharge Diet: No restrictions Activity Discharge Activity: Return to Normal Activity and May Not Drive Weight Bearing Status: Weight bearing as tolerated Dressing / Incision Call your doctor if you observe: Fever of 101 or Higher, Coldness, Increased Pain, Numbness or Tingling, Change in Color, Inability to urinate, Inability to have a bowel movement, Using more than 1 pad per hour, Shortness of breath, Dizziness, Fainting spells, Swelling in the ankles, Chest pain, Prolonged hiccupping, Increased palpitations (irregular heartbeat) and Calf discomfort Follow Up Care When: IN 2 WEEKS Test Results: Test results from this visit will be discussed in further detail at your follow- up appointment, if applicable. Discharge Plan Admission Admit Date/Time: 06/17/23 00:24 Attending Provider: Flo Magana Primary Care Provider: Memo Chairez Consulting Providers: Kendall Skinner; Adolfo Harris Discharge Orders/Prescriptions Prescriptions: New polyethylene glycol 3350 17 gram Powder In Packet 17 g PO BID Qty: 0 0RF meloxicam 15 mg Tablet 7.5 mg PO DAILY 30 Days Qty: 15 0RF Rx Instructions: 7.5 mg once daily for 1 week and then as needed. sennosides-docusate sodium [Stool Softener-Stimulant Laxat] 8.6-50 mg Tablet 2 tab PO BID Qty: 0 0RF acetaminophen 500 mg Tablet 1,000 mg PO Q8 Qty: 0 0RF Rx Instructions: 1 g every 8 hourly for 1 week and then q. 8 hourly as needed for moderate to severe pain bisacodyl 10 mg Suppository 10 mg [place] DAILY Qty: 0 0RF Continued omeprazole 20 mg capsule,delayed release(DR/EC) 20 mg PO DAILY thiamine HCl (vitamin B1) 50 mg tablet 50 mg PO DAILY cyanocobalamin (vitamin B-12) [Vitamin B-12] 1,000 mcg tablet 1,000 mcg PO DAILY Myrbetriq 25 mg tablet extended release 24 hr 25 mg PO DAILY trazodone 150 mg tablet 150 mg PO QHS olanzapine 10 mg tablet 10 mg PO DAILY oxybutynin chloride 10 mg tablet extended release 24hr 10 mg PO DAILY bupropion HCl [Wellbutrin SR] 150 mg Tablet Sustained-Release 12 Hr 300 mg PO DAILY levothyroxine 25 mcg Tablet 25 mcg PO DAILY ferrous sulfate 325 mg (65 mg iron) Tablet 325 mg PO BID Spiriva Respimat 2.5 mcg/actuation Mist 2 puff INHALATION DAILY atorvastatin 40 mg tablet 40 mg PO QHS cholecalciferol (vitamin D3) [Vitamin D3] 25 mcg (1,000 unit) Capsule 25 mcg PO DAILY albuterol sulfate 2.5 mg /3 mL (0.083 %) solution for nebulization 2.5 mg inhalation Q6H PRN PRN (Reason: Shortness Of Breath Or Wheezing) albuterol sulfate [Ventolin HFA] 90 mcg/actuation HFA aerosol inhaler 1 puff INHALATION Q4H PRN PRN (Reason: Shortness Of Breath Or Wheezing) baclofen 10 mg Tablet 5 mg PO BID Qty: 30 0RF amlodipine 10 mg tablet 10 mg PO DAILY Qty: 30 0RF metoprolol succinate 50 mg tablet extended release 24 hr 50 mg PO DAILY budesonide 0.5 mg/2 mL Suspension For Nebulization 0.5 mg inhalation Q12H.RT Qty: 0 0RF Ensure Surgery 0.08-1.4 gram-kcal/mL Liquid 237 ml PO TIDCM Qty: 0 0RF famotidine 20 mg Tablet 20 mg PO QHS Qty: 0 0RF oxycodone 5 mg Tablet 5 mg PO Q4H PRN PRN (Reason: Pain Score 6-10) 3 Days Qty: 14 0RF pregabalin [Lyrica] 150 mg capsule 150 mg PO TID 3 Days Qty: 9 0RF Discontinued meloxicam 15 mg tablet 15 mg PO DAILY 30 Days Qty: 30 0RF acetaminophen [Tylenol 8 Hour] 650 mg tablet extended release 650 mg PO Q8H PRN (Reason: pain) Referrals / Follow Up: Kendall Skinner MD [Med Staff - Active Staff] - Within 2 Weeks Memo Chairez MD [Primary Care Provider] - Disposition Disposition (needs filled in before D/C Order can be placed): Home Health Service
--- NOTE | 2023-06-21 11:42 | CASEMGMT ---
Discharge Planning A list of?HH providers including quality and resource use data and consistent with the patient's preferred geographic region, medical needs, and insurance network was created in [facility] Guide.? This list was provided to the RN SAUL. Shruthi Saunders, Discharge Planning Asst.
--- NOTE | 2023-06-21 12:00 | CASEMGMT ---
Addendum entered by Srinivasan Carson 06/21/23 12:55: 1233 Pt states that should would be willing to go through [facility], [facility], and [facility]. AYANNA Hawkins topographical field assistant notified and will send referrals. Pt also states at this time that she wears 2L O2 at night through [facility]. This RN calls [facility] and they state the pt current order for O2 states 2L continuous. Pt to call her friend for transportation needs. If unable, she will call her insurance for potential transportation. Original Note: This RN CM to pt room at this time to discuss HHC agencies. Pt is agreeable to look at options for HHC for PT and OT. Provided with list created by [facility] topographical field assistant. RN CM to check back on pt preferences. Pt states that she has a friend that is getting her house ready. Pt states that she has a rollator at home.
--- NOTE | 2023-06-21 12:51 | CASEMGMT ---
Addendum entered by Shruthi Saunders 06/23/23 08:32: Patient was declined by [facility], [facility], [facility], [facility], and [facility]. YAYA HUGHES udpated. Shruthi Saunders, Discharge Planning Asst. Addendum entered by Shruthi Saunders 06/22/23 15:23: [facility] by [facility], [facility], and [facility]. Referrals sent to [facility], [facility], [facility], and [facility]. YAYA HUGHES updated. Shruthi Saunders Discharge Planning Asst. Original Note: Discharge Planning HH referral sent via [facility] to [facility], [facility], and [facility] . Shruthi Saunders Discharge Planning Asst.
--- NOTE | 2023-06-21 13:01 | PCM.PN.ORT ---
Subjective Subjective Pain well-controlled. Collar well-fitting. Denies dysphagia. Continues to improve in strength. Has been working with PT and has been ambulating with walker. Previously, I had asked her to obtain an external bone stimulator that we had prescribed and she had left at home. She was unable to have a family member find it at home. Objective Data Objective Data Vital Signs: Vital Signs Temp Pulse Resp BP Pulse Ox O2 Del Method O2 Flow Rate 97.5 F L 102 H 18 160/108 H 91 Room Air 2 06/21/23 07:00 06/21/23 07:21 06/21/23 07:21 06/21/23 07:00 06/21/23 07:21 06/21/23 07:21 06/20/23 23:37 Oxygen Flow Rate (L/min) 2 Oxygen Delivery Method Room Air Weight: 186 lb 8.177 oz Body Mass Index (BMI) 29.2 Intake & Output: Intake and Output for Last 24 Hours 06/19/23 06/20/23 06/21/23 23:59 23:59 23:59 Intake Total 1320 / 1600 1210 / 1210 Output Total 300 / 300 300 / 300 Balance 1320 / 1600 910 / 910 -300 / -300 Lab / Micro Data 06/21/23 07:19 06/21/23 07:19 Labs: Laboratory Results - last 24 hr 06/21/23 07:19: WBC 6.6, RBC 4.22, Hgb 12.5, Hct 38.0, MCV 90.0, MCH 29.6, MCHC 32.9, RDW Std Deviation 43.2, RDW Coeff of Sandeep 13.2, Plt Count 355, MPV 9.9, Immature Gran % (Auto) 0.600, Neut % (Auto) 61.1, Lymph % (Auto) 21.5, [place] % (Auto) 9.5, Eos % (Auto) 6.5 H, Baso % (Auto) 0.8, Absolute Neuts (auto) 4.1, Absolute Lymphs (auto) 1.42, Nucleated RBC % 0, Sodium 140, Potassium 4.1, Chloride 106, Carbon Dioxide 29.0, Anion Gap 5, BUN 19 H, Creatinine 0.50 L, Estim Creat Clear Calc 123.63, Est GFR (MDRD) Af Amer 166, Est GFR (MDRD) Non-Af 137, BUN/Creatinine Ratio 38.2 H, Glucose 104, Calcium 9.5 Micro: Microbiology 06/16/23 22:55 Mucosa - Nose SARS-CoV-2, Influenza & RSV (PCR) - Final Physical Exam Narrative Incision well-healed. Neurologic exam status stable compared to yesterday with 4+ strength in all 4 extremities. Assessment & Plan Assessment/Plan (1) Closed C3 fracture: QUALIFIERS: Encounter type: initial encounter Fracture morphology: unspecified fracture morphology Fracture alignment: displaced Qualified Code(s): S12.200A - Unspecified displaced fracture of third cervical vertebra, initial encounter for closed fracture (2) S/P cervical spinal fusion: PLAN: Plan Continue PT OT mobilization. Will defer decision regarding rehab versus home with home PT to physical therapy, social work, and primary team. Okay to go home with home PT from my perspective, if safe. Recommended that she find her external bone stimulator at home and start using it again. Obtained x-rays today for baseline. I will obtain weekly x-rays for her. She should have an appointment in clinic with me for repeat x-rays starting next week. Again educated patient about quitting smoking and alcohol as these would negatively affect her fusion. Patient will see me in a week in clinic.
--- NOTE | 2023-06-21 13:10 | DS.PCM_ITS ---
Providers Date of Admission: 06/17/23 Date of Discharge: 06/21/23 Primary Care Physician: Dr. Memo Chairez MD Consultations 06/17/23 01:27 Consult: Orthopedics Routine Consulting Provider: Kendall Skinner Reason for Consult: recent c-spine fusion, concern for hardware malfunction EMERGENT Consult: No MD Notified: Yes Date Notified: 06/17/23 Time Notified: 06:48 Method of Notification: Text Reason For Visit: GENERALIZED WEAKNESS Diagnosis Discharge Diagnosis (1) Closed C3 fracture: Status: Acute Code(s): S12.200A - Unspecified displaced fracture of third cervical vertebra, initial encounter for closed fracture Qualifiers: Encounter type: initial encounter Fracture morphology: unspecified fracture morphology Fracture alignment: displaced Qualified Code(s): S12.200A - Unspecified displaced fracture of third cervical vertebra, initial encounter for closed fracture (2) S/P cervical spinal fusion: Status: Acute Code(s): Z98.1 - Arthrodesis status Plan Patient is a 53-year-old female who presented to [facility] ED on 06/17/2023 with worsening cervical spine pain and generalized weakness. Apparently she fell down just outside her home as she could not patrol judge the distance/floor. Patient is stated she did not trip over any objects. No LOC. She states her pain or units from C-spines and then moved to shoulders along with weakness of both hands and numbness. 1. Worsening C-spine pain, concern for hardware malfunction after recent C3-5 fusion, generalized weakness: [facility] C-spine on admit showed postsurgical changes C3-C5 with slight increase separation of hardware from vertebral body at C3 level, mild prevertebral edema at C4-C6 slightly increased compared to prior x-rays. Generalized weakness likely due to decreasing level of exercise, poor p.o. intake in setting of pain. Orthopedics consulted. PT/OT/case management consulted. Pain control with scheduled Tylenol, Mobic, oxycodone 5 mg every 4 hours as needed. 06/17: Discussed with Dr. Chance. For now conservative management with pain control and then rehab. 06/18: Discussed with Dr. Chance. As per him, when a person went to her house to deliver stimulator she had a bottle of beer in her hand which was recently less than 2 weeks which patient states she has not drank in after surgery. 06/19: Pain is getting better. Continue PT and OT. Patient has constipation. On MiraLAX, senna S and Dulcolax suppository ordered. Discharge plan: Need SNF pre-CERT 06/20/2023: Pain is same. Patient moved her bowels. 06/21/2023: Patient's neck pain is improved. She wants to go home with home health care. She is having bowel movement. Advised to continue taking stool softener MiraLAX senna S and Dulcolax suppository as needed [id number]. Discussed with the case assistant. Meloxicam dose decreased to 7.5 mg daily. Follow-up with orthopedic surgeon Dr. Skinner in 2 weeks 2. Mild ERICA ? Creatinine 1.14, BUN 27 on admit. Baseline creatinine 0.5-0.7. Suspect prerenal etiology in setting of poor p.o. intake. S/p 1 L IV fluids in the ED. Follow-up a.m. BMP. Monitor urine output. 06/17: BUNs/creatinine 16/0.65. ERICA resolved. Chronic medical conditions: ? Hypertension: Holding home amlodipine and Toprol for now, restart as needed. ? Mood disorder/insomnia: Continue home Wellbutrin, Zyprexa, trazodone at night. ? Chronic pain: Continue home Lyrica and baclofen. ? Hyperlipidemia: Continue statin. ? COPD: Continue home inhalers. ? GERD: Continue home PPI. ? Hypothyroidism: Continue home Synthroid. DVT prophylaxis: Lovenox CODE STATUS: Full code, verified Discharge medication reconciliation done. Discharge follow-up instructions completed. Discharge process discussed with the patient and all questions were answered to patient's satisfaction. Follow with PCP in 1 to 2 weeks Total time spent, exact 35 minutes on discharge meds reconciliation, examin ation, coordination of care with nurses and ancillary staff, review of imaging and blood test and discussion with the patient on follow-up instructions. Medications at Discharge Home Medications bupropion HCl 150 mg tablet,12 hr sustained-release (Wellbutrin SR) 300 mg PO DAILY depression 04/30/21 ferrous sulfate 325 mg (65 mg iron) tablet 325 mg PO BID supplement 04/30/21 levothyroxine 25 mcg tablet 25 mcg PO DAILY hypothyroid 04/30/21 tiotropium bromide 2.5 mcg/actuation mist for inhalation (Spiriva Respimat) 2 puff inhalation DAILY COPD 04/30/21 albuterol sulfate 2.5 mg/3 mL (0.083 %) solution for nebulization 2.5 mg i nhalation Q6H PRN PRN Shortness Of Breath Or Wheezing 10/12/21 albuterol sulfate 90 mcg/actuation aerosol inhaler (Ventolin HFA) 1 puff inhalation Q4H PRN PRN Shortness Of Breath Or Wheezing 10/12/21 cholecalciferol (vitamin D3) 25 mcg (1,000 unit) capsule (Vitamin D3) 25 mcg PO DAILY vitamin 10/12/21 atorvastatin 40 mg tablet 40 mg PO QHS cholesterol 02/03/22 omeprazole 20 mg capsule,delayed release 20 mg PO DAILY reflux 03/25/22 thiamine HCl (vitamin B1) 50 mg tablet 50 mg PO DAILY vitamin 03/25/22 baclofen 10 mg tablet 5 mg (1/2 x 10 mg) PO BID pain #30 tabs 05/06/22 cyanocobalamin (vitamin B-12) 1,000 mcg tablet (Vitamin B-12) 1,000 mcg PO DAILY supplement 07/27/22 mirabegron 25 mg tablet,extended release 24 hr (Myrbetriq) 25 mg PO DAILY OVERACTIVE BLADDER 07/27/22 olanzapine 10 mg tablet 10 mg PO DAILY MOOD 10/28/22 oxybutynin chloride 10 mg tablet,extended release 24 hr 10 mg PO DAILY OVERACTIVE BLADDER 10/28/22 trazodone 150 mg tablet 150 mg PO QHS SLEEP 10/28/22 amlodipine 10 mg tablet 10 mg PO DAILY bp #30 tabs 12/29/22 metoprolol succinate 50 mg tablet,extended release 24 hr 50 mg PO DAILY bp 05/15/23 budesonide 0.5 mg/2 mL suspension for nebulization 0.5 mg (2 mL) inhalation Q12H.RT #0 mL 05/23/23 famotidine 20 mg tablet 20 mg PO QHS #0 tabs 05/23/23 nut.tx.comp. immune systm,reg 0.08 gram-1.4 kcal/mL oral liquid (Ensure Surgery) 237 ml PO TIDCM #0 mL 05/23/23 oxycodone 5 mg tablet 5 mg PO Q4H PRN PRN Pain Score 6-10 3 days #14 tabs 05/23/23 pregabalin 150 mg capsule (Lyrica) 150 mg PO TID pain 3 days #9 caps 05/23/23 acetaminophen 500 mg tablet 1,000 mg (2 x 500 mg) PO Q8 #0 tabs 06/21/23 bisacodyl 10 mg rectal suppository 10 mg [place] DAILY #0 ea 06/21/23 meloxicam 15 mg tablet 7.5 mg (1/2 x 15 mg) PO DAILY 30 days #15 tabs 06/21/23 polyethylene glycol 3350 17 gram oral powder packet 17 g PO BID #0 ea 06/21/23 sennosides 8.6 mg-docusate sodium 50 mg tablet (Stool Softener-Stimulant Laxative) 2 tab PO BID #0 tabs 06/21/23 Physical Exam Narrative Seen and examined. Her pain is improved. Sitting on the chair. No new symptoms. Physical exam General: Alert, Oriented x3, Cooperative HEENT: Atraumatic, PERRLA, EOMI, Normocephalic Oral: No Gingival or Mucosal Lesions/ Ulcerations C-spine/neck: Collar around the neck. No acute tenderness present over C-spine. Supple, No JVD, Negative Carotid Bruits Lungs: Air entry diminished in bilateral lung bases. No crepitation/rhonchi Cardiovascular: Regular rate, Regular Rhythm, Normal S1, Normal S2, No murmurs Abdomen: Bowel Sounds Present, Soft, Non Tender, Non-Distended : No renal angle tenderness. No suprapubic tenderness. Extremities: No edema, Capillary Refill Less than 3 Seconds Skin: No rashes, No breakdown Musculoskeletal: No Tenderness to Palpation of Joints or Extremities. ROM of lower extremities intact. Neurological: Cranial nerves II-XII grossly intact, DTR 2/4. Muscle strength 4/5 of small muscles of hand, forearm. No acute focal neurological deficit. Psych/Mental Status: Flat affect. Weight / BMI Weight Weight: 186 lb 8.177 oz Body Mass Index (BMI) 29.2 ABG / Lab / Microbiology Data 06/21/23 07:19 06/21/23 07:19 Laboratory: Laboratory Results - last 24 hr 06/21/23 07:19: WBC 6.6, RBC 4.22, Hgb 12.5, Hct 38.0, MCV 90.0, MCH 29.6, MCHC 32.9, RDW Std Deviation 43.2, RDW Coeff of Sandeep 13.2, Plt Count 355, MPV 9.9, Immature Gran % (Auto) 0.600, Neut % (Auto) 61.1, Lymph % (Auto) 21.5, [place] % (Auto) 9.5, Eos % (Auto) 6.5 H, Baso % (Auto) 0.8, Absolute Neuts (auto) 4.1, Absolute Lymphs (auto) 1.42, Nucleated RBC % 0, Sodium 140, Potassium 4.1, Chloride 106, Carbon Dioxide 29.0, Anion Gap 5, BUN 19 H, Creatinine 0.50 L, Estim Creat Clear Calc 123.63, Est GFR (MDRD) Af Amer 166, Est GFR (MDRD) Non-Af 137, BUN/Creatinine Ratio 38.2 H, Glucose 104, Calcium 9.5 Microbiology: Microbiology 06/16/23 22:55 Mucosa - Nose SARS-CoV-2, Influenza & RSV (PCR) - Final D/C Instructions Discharge Diet: No restrictions Weight Bearing Status: Weight bearing as tolerated Call your doctor if you observe: Fever of 101 or Higher, Coldness, Increased Tonia n, Numbness or Tingling, Change in Color, Inability to urinate, Inability to have a bowel movement, Using more than 1 pad per hour, Shortness of breath, Dizziness, Fainting spells, Swelling in the ankles, Chest pain, Prolonged hiccupping, Increased palpitations (irregular heartbeat) and Calf discomfort When: IN 2 WEEKS Meaningful Use Info Meaningful Use Diagnoses (Choose all that apply): None applicable Discharge Plan Admission Admit Date/Time: 06/17/23 00:24 Attending Provider: Flo Magana Primary Care Provider: Memo Chairez Consulting Providers: Kendall Skinner; Adolfo Harris Discharge Orders/Prescriptions Prescriptions: New polyethylene glycol 3350 17 gram Powder In Packet 17 g PO BID Qty: 0 0RF meloxicam 15 mg Tablet 7.5 mg PO DAILY 30 Days Qty: 15 0RF Rx Instructions: 7.5 mg once daily for 1 week and then as needed. sennosides-docusate sodium [Stool Softener-Stimulant Laxat] 8.6-50 mg Tablet 2 tab PO BID Qty: 0 0RF acetaminophen 500 mg Tablet 1,000 mg PO Q8 Qty: 0 0RF Rx Instructions: 1 g every 8 hourly for 1 week and then q. 8 hourly as needed for moderate to severe pain bisacodyl 10 mg Suppository 10 mg [place] DAILY Qty: 0 0RF Continued omeprazole 20 mg capsule,delayed release(DR/EC) 20 mg PO DAILY thiamine HCl (vitamin B1) 50 mg tablet 50 mg PO DAILY cyanocobalamin (vitamin B-12) [Vitamin B-12] 1,000 mcg tablet 1,000 mcg PO DAILY Myrbetriq 25 mg tablet extended release 24 hr 25 mg PO DAILY trazodone 150 mg tablet 150 mg PO QHS olanzapine 10 mg tablet 10 mg PO DAILY oxybutynin chloride 10 mg tablet extended release 24hr 10 mg PO DAILY bupropion HCl [Wellbutrin SR] 150 mg Tablet Sustained-Release 12 Hr 300 mg PO DAILY levothyroxine 25 mcg Tablet 25 mcg PO DAILY ferrous sulfate 325 mg (65 mg iron) Tablet 325 mg PO BID Spiriva Respimat 2.5 mcg/actuation Mist 2 puff INHALATION DAILY atorvastatin 40 mg tablet 40 mg PO QHS cholecalciferol (vitamin D3) [Vitamin D3] 25 mcg (1,000 unit) Capsule 25 mcg PO DAILY albuterol sulfate 2.5 mg /3 mL (0.083 %) solution for nebulization 2.5 mg inhalation Q6H PRN PRN (Reason: Shortness Of Breath Or Wheezing) albuterol sulfate [Ventolin HFA] 90 mcg/actuation HFA aerosol inhaler 1 puff INHALATION Q4H PRN PRN (Reason: Shortness Of Breath Or Wheezing) baclofen 10 mg Tablet 5 mg PO BID Qty: 30 0RF amlodipine 10 mg tablet 10 mg PO DAILY Qty: 30 0RF metoprolol succinate 50 mg tablet extended release 24 hr 50 mg PO DAILY budesonide 0.5 mg/2 mL Suspension For Nebulization 0.5 mg inhalation Q12H.RT Qty: 0 0RF Ensure Surgery 0.08-1.4 gram-kcal/mL Liquid 237 ml PO TIDCM Qty: 0 0RF famotidine 20 mg Tablet 20 mg PO QHS Qty: 0 0RF oxycodone 5 mg Tablet 5 mg PO Q4H PRN PRN (Reason: Pain Score 6-10) 3 Days Qty: 14 0RF pregabalin [Lyrica] 150 mg capsule 150 mg PO TID 3 Days Qty: 9 0RF Discontinued meloxicam 15 mg tablet 15 mg PO DAILY 30 Days Qty: 30 0RF acetaminophen [Tylenol 8 Hour] 650 mg tablet extended release 650 mg PO Q8H PRN (Reason: pain) Referrals / Follow Up: Kendall Skinner MD [Med Staff - Active Staff] - Within 2 Weeks Memo Chairez MD [Primary Care Provider] - Disposition Disposition (needs filled in before D/C Order can be placed): Home Health Service Charges/Coding Visit Charges Inpatient E&M: 75873 Disch Hosp >30min
[2023-06-21 14:23] VITALS: PULSE 93; RESP 18
[2023-06-21 15:06] VITALS: BP 140/94; PULSE 90; RESP 16; TEMP 36.6; O2SAT 94
--- NOTE | 2023-06-21 15:43 | CASEMGMT ---
YAYA HUGHES into pt room, pt states that her transportation is here and in the room. Pt would like to go to home. She is aware that the [facility] is not set up yet. She asks if she can still leave. Pt aware that this YAYA HUGHES will call her tomorrow to make aware if N has accepted as the other two agencies have declined to service her. Pt is agreeable to this. Pt denies further needs and is ready for dc.
--- NOTE | 2023-06-22 15:58 | CASEMGMT ---
TC to pt to make aware that the 3 selected agencies are unable to accept her for care. She is aware that the referral was sent to the remaining agencies on the list for acceptance and RN SAUL will follow up tomorrow with her. She is appreciative of the call.
--- NOTE | 2023-06-24 11:56 | CASEMGMT ---
Updated from Shruthi cassidy marketing communications assistant that she called [facility] yesterday and they are unable to accept pt. All other agencies on the list have declined pt for care. TC to pt from work cell phone as well as hospital desk phone and received a message that pt has calling restrictions and the call could not go through.
== END 2023-06-21 16:07 | disposition home health service (06) | DRG 347 ==
LOC: ED 06-17 00:15 → MS3 06-17 00:34
PROVIDERS: Admitting Provider Hospitalist; Emergency Provider Emergency Medicine; PCP Family Medicine; Visit Provider Internal Medicine
DX: M54.2 Cervicalgia (principal); S12.200A Unspecified displaced fracture of third cervical vertebra, initial encounter for closed fracture; N17.9 Acute kidney failure, unspecified; G95.9 Disease of spinal cord, unspecified; J44.9 Chronic obstructive pulmonary disease, unspecified; F31.9 Bipolar disorder, unspecified; D64.9 Anemia, unspecified; I10 Essential (primary) hypertension; E03.9 Hypothyroidism, unspecified; F12.90 Cannabis use, unspecified, uncomplicated; F17.200 Nicotine dependence, unspecified, uncomplicated; E78.5 Hyperlipidemia, unspecified; K21.9 Gastro-esophageal reflux disease without esophagitis; W19.XXXA Unspecified fall, initial encounter; G89.29 Other chronic pain; Z98.1 Arthrodesis status; R53.1 Weakness; Z79.51 Long term (current) use of inhaled steroids; G47.00 Insomnia, unspecified
CPT/HCPCS: 36415; 70450; 71045; 72040; 72125; 80048; 80307; 80320; 81001; 82962; 82977; 83605; 85025; 85027; 87631; 93005; 94640; 94668; 97110; 97116; 97163; 97166; 97530; 97535; 99285; P9612; A4216; G0480

== ENCOUNTER 2023-06-25 13:05 | Inpatient (IN) | payer MEDICAID, SELFPAY ==
[2023-06-25 13:07] VITALS: BP 94/70; PULSE 78; RESP 18; TEMP 36.6; O2SAT 93
[2023-06-25 13:54] LABS: Absolute Lymphocyte Count 2.31 X10^3/uL (0.83-4.51); Basophil# 0.08 X10^3/uL; Basophil% 0.9 % (0-1); Eosinophil# 0.35 X10^3/uL; Hemoglobin 12.8 g/dL (12.0-15.0); Lymphocyte # 2.31 X10^3/ul (0.83-4.51); Lymphocyte % 26.1 % (19-41); Mean Corp Hgb Conc 32.8 g/dL (32-36); Mean Corpuscular Volume 88.2 fL (81-99); Mean Platelet Vol. 10.3 fl (6.2-12.0); Monocyte# 1.08 X10^3/uL; Monocyte% 12.2 % (0-10); NRBC Flagged by Analyzer 0 % (0-5); Neutrophil # 4.95 X10^3/uL (2.7-7.7); Neutrophil % 55.8 % (47-70); Platelet Count 442 K/mm3 (150-450); RBC Distribution Width CV 13.2 % (11.6-14.6); RBC Distribution Width SD 42.8 fl (35.1-43.9); Red Blood Count 4.42 M/mm3 (4.2-5.4); White Blood Count 8.9 K/mm3 (4.4-11.0)
--- NOTE | 2023-06-25 13:56 | EX.ED.DYSGE1 ---
HPI <BRYANT Hamm - Last Filed: 06/25/23 16:58> History of Present Illness Chief Complaint: Other, Pain/Inj Narrative Narrative: Patient presenting today due to generalized weakness and neck pain. She is s/p C3-5 anterior cervical discectomy and fusion performed by Dr. Chance 05/18. She is in a cervical collar and has a spinal stimulator. She was in a mcc for rehabilitation for a few weeks and then was discharged back home. Since then, this is her second time coming back to the emergency department to increased weakness. She was recently here from 06/16-06/21. She was discharged home and does have a home health aide that comes to help her but reports that today she was unable to stand on her own and reports, my limbs are not working anymore. She reports that she has had increased pain to her neck as well. She denies fevers, chills, abdominal pain, nausea, vomiting. [facility] <BRYANT Hamm - Last Filed: 06/25/23 16:58> [facility] Medical History Acute cholecystitis Acute hyponatremia Acute pancreatitis Alcohol abuse Alcohol withdrawal Ambulates with cane Anemia Anemia of unknown etiology Anxiety Arthritis Bipolar disorder Chronic pain COPD (chronic obstructive pulmonary disease) Depression Desire for detoxification Distal radius fracture, right Easy bruising Elevated LFTs Excessive bleeding Gastric reflux High cholesterol History of edema Hyperglycemia Hypertension Hypothyroidism Marijuana use Migraines On home oxygen therapy Osteoporosis Pulmonary embolism Pulmonary embolism Recurrent syncope Renal insufficiency Restless legs Shortness of breath on exertion Sleep apnea Smoker Transient hypotension Walker as ambulation aid Wears glasses Home Medications bupropion HCl 150 mg tablet,12 hr sustained-release (Wellbutrin SR) 300 mg PO DAILY depression 04/30/21 [History Last Taken 06/16/23] ferrous sulfate 325 mg (65 mg iron) tablet 325 mg PO BID supplement 04/30/21 [History Last Taken 06/16/23] levothyroxine 25 mcg tablet 25 mcg PO DAILY hypothyroid 04/30/21 [History Last Taken 06/16/23] tiotropium bromide 2.5 mcg/actuation mist for inhalation (Spiriva Respimat) 2 puff inhalation DAILY COPD 04/30/21 [History Last Taken 06/16/23] albuterol sulfate 2.5 mg/3 mL (0.083 %) solution for nebulization 2.5 mg inhalation Q6H PRN PRN Shortness Of Breath Or Wheezing 10/12/21 [History Last Taken 06/16/23] albuterol sulfate 90 mcg/actuation aerosol inhaler (Ventolin HFA) 1 puff inhalation Q4H PRN PRN Shortness Of Breath Or Wheezing 10/12/21 [History Last Taken 05/14/23 10:00 1 puff] cholecalciferol (vitamin D3) 25 mcg (1,000 unit) capsule (Vitamin D3) 25 mcg PO DAILY vitamin 10/12/21 [History Last Taken 06/16/23] atorvastatin 40 mg tablet 40 mg PO QHS cholesterol 02/03/22 [History Last Taken 06/16/23] omeprazole 20 mg capsule,delayed release 20 mg PO DAILY reflux 03/25/22 [History Last Taken 06/16/23] baclofen 10 mg tablet 5 mg (1/2 x 10 mg) PO BID pain #30 tabs 05/06/22 [Rx Last Taken 06/16/23] cyanocobalamin (vitamin B-12) 1,000 mcg tablet (Vitamin B-12) 1,000 mcg PO DAILY supplement 07/27/22 [History Last Taken 06/16/23] mirabegron 25 mg tablet,extended release 24 hr (Myrbetriq) 25 mg PO DAILY OVERACTIVE BLADDER 07/27/22 [History Last Taken 06/16/23] olanzapine 10 mg tablet 10 mg PO DAILY MOOD 10/28/22 [History Last Taken 06/16/23] oxybutynin chloride 10 mg tablet,extended release 24 hr 10 mg PO DAILY OVERACTIVE BLADDER 10/28/22 [History Last Taken 06/16/23] trazodone 150 mg tablet 150 mg PO QHS SLEEP 10/28/22 [History Last Taken 06/16/23] amlodipine 10 mg tablet 10 mg PO DAILY bp #30 tabs 12/29/22 [Rx Last Taken 06/16/23] metoprolol succinate 50 mg tablet,extended release 24 hr 50 mg PO DAILY bp 05/15/23 [History Last Taken 06/16/23] budesonide 0.5 mg/2 mL suspension for nebulization 0.5 mg (2 mL) inhalation Q12H.RT #0 mL 05/23/23 [Rx Last Taken 06/16/23] nut.tx.comp. immune systm,reg 0.08 gram-1.4 kcal/mL oral liquid (Ensure Surgery) 237 ml PO TIDCM #0 mL 05/23/23 [Rx Last Taken 06/08/23] pregabalin 150 mg capsule (Lyrica) 150 mg PO TID pain 3 days #9 caps 05/23/23 [Rx Last Taken 06/16/23] acetaminophen 500 mg tablet 1,000 mg (2 x 500 mg) PO Q8 #0 tabs 06/21/23 [Rx Last Taken Unknown] meloxicam 15 mg tablet 7.5 mg (1/2 x 15 mg) PO DAILY 30 days #15 tabs 06/21/23 [Rx Last Taken Unknown] polyethylene glycol 3350 17 gram oral powder packet 17 g PO BID #0 ea 06/21/23 [Rx Last Taken Unknown] Allergy/AdvReac Type Severity Reaction Status Date / Time fentanyl Allergy Anaphylaxis Verified 06/25/23 13:07 [email or web address] [From Chantix] AdvReac hallucinati Verified 06/25/23 13:07 ons Family History Other Cancer Surgical History H/O skin graft H/O: hysterectomy Hx of cholecystectomy Hx of tonsillectomy Social History household members: none Smoking Status: Light Smoker (<10/day) alcohol intake: former substance use type: marijuana additional social history: disabled ROS <BRYANT Hamm - Last Filed: 06/25/23 16:58> ROS ED Constitutional Constitutional ED: Denies chills or fever(s) Cardiovascular Cardiovascular: Denies chest pain Respiratory/Chest Respiratory/Chest: Denies cough or dyspnea Gastrointestinal Gastrointestinal: Denies abdominal pain, nausea or vomiting Genitourinary Genitourinary ED: Denies dysuria, hematuria or urinary urgency Musculoskeletal Musculoskeletal: Reports neck pain Integumentary Denies rash Neurologic Neurologic: Reports weakness EXAM <BRYANT Hamm - Last Filed: 06/25/23 16:58> Physical Exam Const Vital Signs: 06/25/23 13:07 06/25/23 13:12 Temperature 97.9 F Temperature Source Oral Pulse Rate 78 Respiratory Rate 18 Respiratory Effort Normal Non-Labored Respiratory Pattern Normal Blood Pressure 94/70 Blood Pressure Mean 78 Pulse Ox 93 Oxygen Delivery Method Room Air Positive well nourished, well developed and no apparent distress General Appearance ED: well developed HEENT Reports normocephalic and head/scalp atraumatic Mouth ED: Yes moist mucous membranes normal Eyes PERRL and EOMs intact bilaterally Neck supple Neck Narrative: Patient is in the cervical collar Chest Wall inspection of chest normal Resp normal respiratory effort and clear to auscultation bilaterally Cardio regular rate and regular rhythm GI soft to palpation, non-tender, non-distended and no masses Back/Spine normal ROM and normal to inspection Extremity normal to inspection and full ROM Neuro oriented x3, CN's II-XII intact bilaterally, moves all extremities, no focal motor deficits and no sensory deficits noted Sensorium / Orientation: awake and alert Psych mental status grossly normal and thought process normal Skin no rashes or lesions noted and no wounds <Dr. Antonella Stallworth DO - Last Filed: 06/25/23 21:02> Physical Exam Const Vital Signs: 06/25/23 13:07 06/25/23 13:12 Temperature 97.9 F Temperature Source Oral Pulse Rate 78 Respiratory Rate 18 Respiratory Effort Normal Non-Labored Respiratory Pattern Normal Blood Pressure 94/70 Blood Pressure Mean 78 Pulse Ox 93 Oxygen Delivery Method Room Air MDM <BRYANT Hamm - Last Filed: 06/25/23 16:58> [facility] MDM Narrative Medical decision making narrative: Patient presenting due to increased general weakness. She reports that she is having a difficult time caring for herself at home, she is having a hard time ambulating and performing her ADLs. She has not funeral home manager to help her, but feels that she is still struggling to care for herself even with help. She is agreeable to going to a long-term facility for rehab. She was given pain control here. I will discuss patient with hospitalist. She will be admitted in stable condition and is comfortable with plan. I have personally performed a face to face assessment of the patient and have reviewed the SYMONE Note. I performed a substantive portion of the visit including all aspects of the following. My taylor findings include: History is [patient presents to the emergency department with complaint of generalized weakness and neck pain. She states that months ago she broke her neck and then fell and broke it again. She has had surgery on her neck. She was in a mcc 4 times and sent home to rehab. She is awaiting physical therapy to be started. She had recent admission for generalized weakness and sent back home. She is stating that she is unable to care for herself. She has had a hard time walking. She denies new falls or injuries.] Exam is [HEENT-PERRLA, EOMI. Cranial nerves II through XII grossly intact. TMs clear. Mucous membranes moist. No adenopathy. Patient with large neck brace in place. Cardiovascular-regular rate and rhythm without murmur or ectopy Lungs-clear to auscultation, chest wall stable without crepitus or subcu emphysema Abdomen-normoactive bowel sounds, soft, nontender, no rebound or rigidity, no peritoneal signs. Extremities-intact ?4, normal range of motion, normal pulses, atraumatic] Medical Decison Making [patient lab workup unremarkable. Urinalysis was normal. She was medicated with Toradol as well as morphine and Zofran. Case will be discussed with hospitalist to evaluate patient for admission for failure to thrive and inability to care for self.] Other additions or changes: [None] Lab Data Lab results narrative: BUN 39, creatinine 1.05 Labs: Laboratory Results - last 24 hr 06/25/23 06/25/23 13:19 15:15 WBC 8.9 RBC 4.42 Hgb 12.8 Hct 39.0 MCV 88.2 MCH 29.0 MCHC 32.8 RDW Std Deviation 42.8 RDW Coeff of Sandeep 13.2 Plt Count 442 MPV 10.3 Immature Gran % (Auto) 1.000 H Neut % (Auto) 55.8 Lymph % (Auto) 26.1 [place] % (Auto) 12.2 H Eos % (Auto) 4.0 Baso % (Auto) 0.9 Absolute Neuts (auto) 5.0 Absolute Lymphs (auto) 2.31 Nucleated RBC % 0 Sodium 137 Potassium 3.7 Chloride 102 Carbon Dioxide 28.0 Anion Gap 7 BUN 39 H Creatinine 1.05 H Est GFR (MDRD) Af Amer 70 Est GFR (MDRD) Non-Af 58 L BUN/Creatinine Ratio 37.1 H Glucose 121 H Calcium 8.5 Urine Color Yellow Urine Clarity Clear Urine pH 5.0 Ur Specific [place] 1.025 Urine Protein 15 H Urine Glucose (UA) Normal Urine Ketones Negative Urine Occult Blood Negative Urine Nitrite Negative Urine Bilirubin Negative Urine Urobilinogen Normal Ur Leukocyte Esterase 25 H Urine RBC 0 SEEN Urine WBC 0-5 SEEN Ur Squamous Epith Cells 0-5 SEEN Urine Bacteria 0 SEEN Hyaline Casts 0-5 SEEN Urine Mucus 0 SEEN <Dr. Antonella Stallworth, DO - Last Filed: 06/25/23 21:02> [facility] Narrative Medical decision making narrative: I have personally performed a face to face assessment of the patient and have reviewed the SYMONE Note. I performed a substantive portion of the visit including all aspects of the following. My taylor findings include: History is [patient presents to the emergency department with complaint of generalized weakness and neck pain. She states that months ago she broke her neck and then fell and broke it again. She has had surgery on her neck. She was in a mcc 4 times and sent home to rehab. She is awaiting physical therapy to be started. She had recent admission for generalized weakness and sent back home. She is stating that she is unable to care for herself. She has had a hard time walking. She denies new falls or injuries.] Exam is [HEENT-PERRLA, EOMI. Cranial nerves II through XII grossly intact. TMs clear. Mucous membranes moist. No adenopathy. Patient with large neck brace in place. Cardiovascular-regular rate and rhythm without murmur or ectopy Lungs-clear to auscultation, chest wall stable without crepitus or subcu emphysema Abdomen-normoactive bowel sounds, soft, nontender, no rebound or rigidity, no peritoneal signs. Extremities-intact ?4, normal range of motion, normal pulses, atraumatic] Medical Decison Making [patient lab workup unremarkable. Urinalysis was normal. She was medicated with Toradol as well as morphine and Zofran. Case will be discussed with hospitalist to evaluate patient for admission for failure to thrive and inability to care for self.] Other additions or changes: [None] Lab Data Attestation: I reviewed the patient's lab results. Labs: Laboratory Results - last 24 hr 06/25/23 06/25/23 13:19 15:15 WBC 8.9 RBC 4.42 Hgb 12.8 Hct 39.0 MCV 88.2 MCH 29.0 MCHC 32.8 RDW Std Deviation 42.8 RDW Coeff of Sandeep 13.2 Plt Count 442 MPV 10.3 Immature Gran % (Auto) 1.000 H Neut % (Auto) 55.8 Lymph % (Auto) 26.1 [place] % (Auto) 12.2 H Eos % (Auto) 4.0 Baso % (Auto) 0.9 Absolute Neuts (auto) 5.0 Absolute Lymphs (auto) 2.31 Nucleated RBC % 0 Sodium 137 Potassium 3.7 Chloride 102 Carbon Dioxide 28.0 Anion Gap 7 BUN 39 H Creatinine 1.05 H Est GFR (MDRD) Af Amer 70 Est GFR (MDRD) Non-Af 58 L BUN/Creatinine Ratio 37.1 H Glucose 121 H Calcium 8.5 Urine Color Yellow Urine Clarity Clear Urine pH 5.0 Ur Specific [place] 1.025 Urine Protein 15 H Urine Glucose (UA) Normal Urine Ketones Negative Urine Occult Blood Negative Urine Nitrite Negative Urine Bilirubin Negative Urine Urobilinogen Normal Ur Leukocyte Esterase 25 H Urine RBC 0 SEEN Urine WBC 0-5 SEEN Ur Squamous Epith Cells 0-5 SEEN Urine Bacteria 0 SEEN Hyaline Casts 0-5 SEEN Urine Mucus 0 SEEN Discharge Plan Dx/Rx/DC Orders Clinical Impression: Weakness, Adult failure to thrive, Neck pain Disposition Disposition: Acute Care Hospital [facility] Discharge Date/Time: 06/25/23 17:21
--- OUTSIDE RECORDS SUMMARY | 2023-06-25 13:56 | XMS RPT_ITS | CCD ---
Author Name Unknown Address [address] [place] [address] Organization [facility] Care Team Providers Care Manufacturing Process Engineer Name Role Phone MATTHEW ULLOA Admitting Unavailable [...] Primary Care Unavailable IBETH ALBERT Referring Unavailable FLO MARTINO Attending Unavailab Jaimee Francois Primary Care Unavailable MEMO LEAHY JR Referring Unavailable Jaimee PALOMARES Primary Care Unavailable URVASHI HUGHES Attending Unavailable MEMO HUBER Referring Unavailable Jaimee PALOMARES Primary Care Unavailable MEMO HUBER Attending Unavailable Jaimee PALOMARES Primary Care Unavailable MEMO HUBER Referring Unavailable PALOMARES, M CICI Primary Care Unavailable PALOMARES, M CICI Attending Unavailable PALOMARES, M CICI Primary Care Unavailable JENIFER YEAGER Attending Unavailable PALOMARES, Jaimee CICI Primary Care Unavailable LILIAM ROWELL Attending Unavailable PALOMARES, M CICI Primary Care Unavailable PALOMARES, M CICI Primary Care Unavailable SAUL, URVASHI Referring Unavailable PALOMARES, Jaimee RAMSEYCICI Attending Unavailable PALOMARES, M CICI Primary Care Unavailable PALOMARES, M CICI Referring Unavailable PALOMARES, M CICI Primary Care Unavailable PALOMARES, M CICI Attending Unavailable PALOMARES, M CICI Primary Care Unavailable PALOMARES, M CICI Primary Care Unavailable PALOMARES, M CICI Attending Unavailable PALOMARES, M CICI Primary Care Unavailable DAHLHAUSEN, URVASHI Attending Unavailable PALOMARES, M CICI Attending Unavailable PALOMARES, M CICI Primary Care Unavailable PALOMARES, M CICI Primary Care Unavailable DABAN, URVASHI Referring Unavailable PALOMARES, M CICI Referring Unavailable IBETH ALBERT Attending Unavailable PALOMARES, Jaimee CICI Primary Care Unavailable JENIFER YEAGER Referring Unavailable CARMELITA RAGSDALE Attending Unavailable PALOMARES, M CICI Primary Care Unavailable TOY JENIFER Referring Unavailable PALOMARES, M CICI Primary Care Unavailable Allergies Allergy Classification Reported Allergen(s) Allergy Type Date of Onset Reaction(s) Facility (20 sources) fentaNYL; Translations: [FENTANYL] Drug Allergy 6 Other: See Comments [facility] Repository (20 sources) varenicline; Translations: [VARENICLINE] Drug Allergy 7 Intolerance [facility] Repository (1 source) varenicline Drug Allergy [facility] Repository Medications Current Medications Medication Drug [...] Drug Class(es) Dates Sig (Normalized) Sig (Original) [id number] 200 actuat albuterol 0.09 mg/actuat metered dose [...] aftercare (3 sources) Polypharmacy ; Translations: [Other care home (current) drug therapy] Episodic Other aftercare (1 [...] 10-21-2021 Episodic Other aftercare (1 source) Other care home (current) drug therapy; Translations: [Polypharmacy] Onset: 08-26-2022 [...] Date Time Vital Sign Value Performing Clinician Desi leon 05-10-2023 11:11-0500 Diastolic blood pressure 70 mm[Hg] Flo Martino MD Work Phone: [facility] 05-10-2023 11:11-0500 Heart rate 67 /min Flo Martino MD Work Phone: [facility] 05-10-2023 11:11-0500 Respiratory rate 20 /min Flo Martino MD Work Phone: [facility] 05-10-2023 11:11-0500 SaO2% (BldA) [Mass fraction] 99 % Flo Martino MD Work Phone: [facility] 05-10-2023 11:11-0500 Systolic blood pressure 118 mm[Hg] Flo Martino MD Work Phone: [facility] 02-14-2023 10:24-0400 Body height 165.1 cm Carmelita Ragsdale MD Work Phone: [facility] 02-14-2023 10:24-0400 Body weight 70.31 kg Carmelita Ragsdale MD Work Phone: [facility] 12-16-2022 11:20-0400 Body weight 64.05 kg Urvashi Dahlhausen CASE WORKER.FITTER / WELDER Work Phone: [facility] 12-16-2022 11:20-0400 Diastolic blood pressure 100 mm[Hg] Urvashi Dahlhausen CASE WORKER.FITTER / WELDER Work Phone: [facility] 12-16-2022 11:20-0400 Heart rate 106 /min Urvashi Dahlhausen CASE WORKER.FITTER / WELDER Work Phone: [facility] 12-16-2022 11:20-0400 Respiratory rate 20 /min Urvashi Dahlhausen CASE WORKER.FITTER / WELDER Work Phone: [facility] 12-16-2022 11:20-0400 SaO2% (BldA) [Mass fraction] 98 % Urvashi Dahlhausen CASE WORKER.FITTER / WELDER Work Phone: [facility] 12-16-2022 11:20-0400 Systolic blood pressure 168 mm[Hg] Urvashi Dahlhausen CASE WORKER.FITTER / WELDER Work Phone: [facility] 12-09-2022 15:17-0400 Body weight 71.67 kg NA Palomares PA-C Work Phone: [facility] 12-09-2022 15:17-0400 Diastolic blood pressure 80 mm[Hg] NA Palomares PA-C Work Phone: [facility] 12-09-2022 15:17-0400 Heart rate 72 /min NA Palomares PA-C Work Phone: [facility] 12-09-2022 15:17-0400 Respiratory rate 18 /min NA Palomares PA-C Work Phone: [facility] 12-09-2022 15:17-0400 SaO2% (BldA) [Mass fraction] 96 % NA Palomares PA-C Work Phone: [facility] 12-09-2022 15:17-0400 Systolic blood pressure 128 mm[Hg] NA Palomares PA-C Work Phone: [facility] 10-20-2022 11:10-0400 Body weight 61.24 kg Jenifer Toy MOON.CNM Work Phone: [facility] 10-20-2022 11:10-0400 Diastolic blood pressure 84 mm[Hg] Jenifer Toy CASE WORKER.CNM Work Phone: [facility] 10-20-2022 11:10-0400 Systolic blood pressure 144 mm[Hg] Jenifer Toy CASE WORKER.CNM Work Phone: [facility] 10-14-2022 13:24-0400 Heart rate 75 /min Deloris Troy MD Work Phone: [facility] 10-14-2022 13:24-0400 Respiratory rate 16 /min Deloris Troy MD Work Phone: [facility] 10-14-2022 13:24-0400 SaO2% (BldA) [Mass fraction] 97 % Deloris Troy MD Work Phone: [facility] 09-16-2022 14:05-0400 Body weight 59.42 kg NA Palomares PA-C Work Phone: [facility] 09-16-2022 14:05-0400 Diastolic blood pressure 88 mm[Hg] NA Palomares PA-C Work Phone: [facility] 09-16-2022 14:05-0400 Heart rate 92 /min NA Palomares PA-C Work Phone: [facility] 09-16-2022 14:05-0400 Respiratory rate 18 /min NA Palomares PA-C Work Phone: [facility] 09-16-2022 14:05-0400 SaO2% (BldA) [Mass fraction] 99 % NA Palomares PA-C Work Phone: [facility] 09-16-2022 14:05-0400 Systolic blood pressure 170 mm[Hg] NA Palomares PA-C Work Phone: [facility] 08-26-2022 10:03-0500 Body temperature 97.81 [degF] Urvashi Dahlhausen CASE WORKER.FITTER / WELDER Work Phone: [facility] 08-26-2022 10:03-0500 Body weight 61.24 kg Urvashi Dahlhausen CASE WORKER.FITTER / WELDER Work Phone: [facility] 08-26-2022 10:03-0500 Diastolic blood pressure 96 mm[Hg] Urvashi Dahlhausen CASE WORKER.FITTER / WELDER Work Phone: [facility] 08-26-2022 10:03-0500 Heart rate 74 /min Urvashi Dahlhausen CASE WORKER.FITTER / WELDER Work Phone: [facility] 08-26-2022 10:03-0500 Respiratory rate 18 /min Urvashi Dahlhausen CASE WORKER.FITTER / WELDER Work Phone: [facility] 08-26-2022 10:03-0500 SaO2% (BldA) [Mass fraction] 97 % Urvashi Dahlhausen CASE WORKER.FITTER / WELDER Work Phone: [facility] 08-26-2022 10:03-0500 Systolic blood pressure 129 mm[Hg] Urvashi Dahlhausen CASE WORKER.FITTER / WELDER Work Phone: [facility] 08-16-2022 10:58-0500 Body weight 64.41 kg NA Palomares PA-C Work Phone: [facility] 08-16-2022 10:58-0500 Diastolic blood pressure 80 mm[Hg] NA Palomares PA-C Work Phone: [facility] 08-16-2022 10:58-0500 Heart rate 74 /min NA Palomares PA-C Work Phone: [facility] 08-16-2022 10:58-0500 Respiratory rate 18 /min NA Palomares PA-C Work Phone: [facility] 08-16-2022 10:58-0500 SaO2% (BldA) [Mass fraction] 97 % NA Palomares PA-C Work Phone: [facility] 08-16-2022 10:58-0500 Systolic blood pressure 148 mm[Hg] NA Palomares PA-C Work Phone: [facility] 06-03-2022 11:10-0500 Heart rate 80 /min Shira Powellfield CASE WORKER.FITTER / WELDER Work Phone: [facility] 06-03-2022 11:10-0500 Respiratory rate 16 /min Shira Powellfield CASE WORKER.FITTER / WELDER Work Phone: [facility] 06-03-2022 11:10-0500 SaO2% (BldA) [Mass fraction] 95 % Shira Powellfield CASE WORKER.FITTER / WELDER Work Phone: [facility] 05-25-2022 14:53-0500 Body weight 67.77 kg Jenifer Yeager CASE WORKER.CNM Work Phone: [facility] 05-25-2022 14:53-0500 Diastolic blood pressure 64 mm[Hg] Jenifer Yeager CASE WORKER.CNM Work Phone: [facility] 05-25-2022 14:53-0500 Systolic blood pressure 112 mm[Hg] Jenifer Yeager CASE WORKER.CNM Work Phone: [facility] 05-14-2022 10:53-0500 Body weight 65.77 kg NA Palomares PA-C Work Phone: [facility] 05-14-2022 10:53-0500 Diastolic blood pressure 78 mm[Hg] NA Palomares PA-C Work Phone: [facility] 05-14-2022 10:53-0500 Heart rate 93 /min NA Palomares PA-C Work Phone: [facility] 05-14-2022 10:53-0500 SaO2% (BldA) [Mass fraction] 97 % NA Palomares PA-C Work Phone: [facility] 05-14-2022 10:53-0500 Systolic blood pressure 148 mm[Hg] NA Palomares PA-C Work Phone: [facility] 05-07-2022 14:35-0500 Body temperature 97.81 [degF] Memo Leahy Jr., MD Work Phone: [facility] 05-07-2022 14:35-0500 Body weight 68.04 kg Memo Leahy Jr., MD Work Phone: [facility] 05-07-2022 14:35-0500 Diastolic blood pressure 62 mm[Hg] Memo Leahy Jr., MD Work Phone: [facility] 05-07-2022 14:35-0500 Heart rate 80 /min Memo Leahy Jr., MD Work Phone: [facility] 05-07-2022 14:35-0500 Respiratory rate 18 /min Memo Leahy Jr., MD Work Phone: [facility] 05-07-2022 14:35-0500 SaO2% (BldA) [Mass fraction] 97 % Memo Leahy Jr., MD Work Phone: [facility] 05-07-2022 14:35-0500 Systolic blood pressure 118 mm[Hg] Memo Leahy Jr., MD Work Phone: [facility] 04-01-2022 08:34-0400 Body weight 73.48 kg NA Palomares PA-C Work Phone: [facility] 04-01-2022 08:34-0400 Diastolic blood pressure 78 mm[Hg] NA Palomares PA-C Work Phone: [facility] 04-01-2022 08:34-0400 Heart rate 69 /min NA Palomares PA-C Work Phone: [facility] 04-01-2022 08:34-0400 Respiratory rate 20 /min NA Palomares PA-C Work Phone: [facility] 04-01-2022 08:34-0400 SaO2% (BldA) [Mass fraction] 96 % NA Palomares PA-C Work Phone: [facility] 04-01-2022 08:34-0400 Systolic blood pressure 128 mm[Hg] NA Palomares PA-C Work Phone: [facility] 03-17-2022 10:57-0400 Body height 175.3 cm Sarahi Whitlock MD Work Phone: [facility] 03-17-2022 10:57-0400 Body weight 74.39 kg Sarahi Whitlock MD Work Phone: [facility] 03-17-2022 10:57-0400 Diastolic blood pressure 84 mm[Hg] Sarahi Whitlock MD Work Phone: [facility] 03-17-2022 10:57-0400 Heart rate 60 /min Sarahi Whitlock MD Work Phone: [facility] 03-17-2022 10:57-0400 Systolic blood pressure 122 mm[Hg] Sarahi Whitlock MD Work Phone: [facility] 02-25-2022 14:25-0400 Body temperature 98.6 [degF] NA Palomares PA-C Work Phone: [facility] 02-25-2022 14:25-0400 Body weight 74.39 kg NA Palomares PA-C Work Phone: [facility] 02-25-2022 14:25-0400 Diastolic blood pressure 72 mm[Hg] NA Palomares PA-C Work Phone: [facility] 02-25-2022 14:25-0400 Heart rate 90 /min NA Palomares PA-C Work Phone: [facility] 02-25-2022 14:25-0400 Respiratory rate 16 /min NA Palomares PA-C Work Phone: [facility] 02-25-2022 14:25-0400 SaO2% (BldA) [Mass fraction] 96 % NA Palomares PA-C Work Phone: [facility] 02-25-2022 14:25-0400 Systolic blood pressure 110 mm[Hg] NA Palomares PA-C Work Phone: [facility] 02-24-2022 10:45-0400 Diastolic blood pressure 61 mm[Hg] Deloris Troy MD Work Phone: [facility] 02-24-2022 10:45-0400 Systolic blood pressure 87 mm[Hg] Deloris Troy MD Work Phone: [facility] 02-24-2022 10:28-0400 Body temperature 99.19 [degF] Deloris Troy MD Work Phone: [facility] 02-24-2022 10:28-0400 Respiratory rate 16 /min Deloris Troy MD Work Phone: [facility] 02-24-2022 10:28-0400 SaO2% (BldA) [Mass fraction] 97 % Deloris Troy MD Work Phone: [facility] 02-24-2022 09:41-0400 Heart rate 98 /min Deloris Troy MD Work Phone: [facility] 02-11-2022 13:19-0400 Diastolic blood pressure 64 mm[Hg] NA Palomares PA-C Work Phone: [facility] 02-11-2022 13:19-0400 Systolic blood pressure 100 mm[Hg] NA Palomares PA-C Work Phone: [facility] 02-11-2022 10:06-0400 Body weight 75.3 kg NA Palomares PA-C Work Phone: [facility] 01-18-2022 11:10-0400 Body weight 80.29 kg Nguyen Guffey CASE WORKER.FITTER / WELDER Work Phone: [facility] 01-18-2022 11:10-0400 Diastolic blood pressure 78 mm[Hg] Nguyen Tree CASE WORKER.FITTER / WELDER Work Phone: [facility] 01-18-2022 11:10-0400 Systolic blood pressure 112 mm[Hg] Nguyen Guffey CASE WORKER.FITTER / WELDER Work Phone: [facility] 12-15-2021 08:23-0400 Diastolic blood pressure 82 mm[Hg] Blaine Ann MD Work Phone: [facility] 12-15-2021 08:23-0400 Heart rate 75 /min Blaine Ann MD Work Phone: [facility] 12-15-2021 08:23-0400 SaO2% (BldA) [Mass fraction] 96 % Blaine Ann MD Work Phone: [facility] 12-15-2021 08:23-0400 Systolic blood pressure 134 mm[Hg] Blaine Ann MD Work Phone: [facility] 12-07-2021 11:32-0400 Body height 175.3 cm Denice Gr CASE WORKER.FITTER / WELDER Work Phone: [facility] 12-07-2021 11:32-0400 Body weight 83.92 kg Denice Gr CASE WORKER.FITTER / WELDER Work Phone: [facility] 11-27-2021 15:05-0400 Diastolic blood pressure 87 mm[Hg] Josué Blevins MD Work Phone: [facility] 11-27-2021 15:05-0400 Heart rate 72 /min Josué Blevins MD Work Phone: [facility] 11-27-2021 15:05-0400 Respiratory rate 16 /min Josué Blevins MD Work Phone: [facility] 11-27-2021 15:05-0400 SaO2% (BldA) [Mass fraction] 94 % Josué Blevins MD Work Phone: [facility] 11-27-2021 15:05-0400 Systolic blood pressure 127 mm[Hg] Josué Blevins MD Work Phone: [facility] 11-27-2021 14:48-0400 Body temperature 98.01 [degF] Josué Blevins MD Work Phone: [facility] 11-27-2021 14:19-0400 Body height 175.3 cm Josué Blevins MD Work Phone: [facility] 11-27-2021 14:19-0400 Body weight 83.92 kg Josué Blevins MD Work Phone: [facility] 11-23-2021 09:17-0400 Body height 175.3 cm Josué Blevins MD Work Phone: [facility] 11-23-2021 09:17-0400 Body weight 83.92 kg Josué Blevins MD Work Phone: [facility] 11-23-2021 09:17-0400 Diastolic blood pressure 78 mm[Hg] Josué Blevins MD Work Phone: [facility] 11-23-2021 09:17-0400 Heart rate 79 /min Josué Blevins MD Work Phone: [facility] 11-23-2021 09:17-0400 Systolic blood pressure 108 mm[Hg] Josué Blevins MD Work Phone: [facility] 11-12-2021 14:13-0400 Body weight 85.73 kg NA Palomares PA-C Work Phone: [facility] 11-12-2021 14:13-0400 Diastolic blood pressure 70 mm[Hg] NA Palomares PA-C Work Phone: [facility] 11-12-2021 14:13-0400 Heart rate 74 /min NA Palomares PA-C Work Phone: [facility] 11-12-2021 14:13-0400 Respiratory rate 16 /min NA Palomares PA-C Work Phone: [facility] 11-12-2021 14:13-0400 SaO2% (BldA) [Mass fraction] 94 % NA Palomares PA-C Work Phone: [facility] 11-12-2021 14:13-0400 Systolic blood pressure 112 mm[Hg] NA Palomares PA-C Work Phone: [facility] Encounters Encounter Date Encounter Type Care Provider Facility Start: 06-08-2023 End: 06-09-2023 ambulatory LILIAMLucius ROWELL Facility:[facility] Start: 05-25-2023 Telephone encounter Greg Martino MD Work Phone: [facility] Procedures Date Procedure Procedure Detail Performing Clinician Start: 01-26-2023 Mri brain brain stem w/o contrast material Urvashi Hughes FITTER / WELDER Work Phone: Start: 09-01-2022 Us breast uni real t juju with image limited Memo Huber MD Work Phone: Start: 09-01-2022 End: 09-01-2022 Mammography Memo Huber MD Work Phone: Start: 04-01-2022 INFLUENZA VACCINE QUADRIVALENT 6 MO - 64 YRS IM M Cici Palomares PA-C Work Phone: Start: 04-01-2022 PFIZER-BIONTECH COVI D-19 BIVALENT BOOSTER VACCINE, AGE 12+ [...] Josué Blevins MD Work Phone: Start: 11-12-2021 PFIZER-BIONTECH COVI D-19 VACCINE, AGE 12+ YR (THORNTON [...] Work Phone: Start: 10-02-2014 Colonoscopy Denice darling CASE WORKER.FITTER / WELDER Work Phone: Plan of Treatment Date Care Activity Detail Author Start: 11-13-2031 Urine microalbumin profile [facility] Start: 11-27-2026 Colonoscopy COLONOSCOPY [facility] Start: 11-27-2026 COLORECTAL CANCER SCREENING COLORECTAL CANCER SCREENING [facility] Start: 10-20-2025 DIABETES SCREEN DIABETES SCREEN [facility] Start: 10-20-2025 Diabetes Screening Diabetes Screenin g [facility] Start: 03-09-2025 DIABETES SCREEN DIABETES SCREEN [facility] Start: 11-12-2024 DIABETES SCREEN DIABETES SCREEN [facility] Start: 05-10-2024 Annual PCP Team Chain Sales Representative pari Disease Visit Annual PCP Team Chronic Disease Visit [facility] Start: 05-10-2024 BP Controlled (<130/80) BP Controlle d (<130/80) [facility] Start: 02-14-2024 Lipid 1996 panel - S cintia or Plasma Lipid Screening [facility] Start: 02-14-2024 LIPID SCREEN LIPID SCREEN [facility] Start: 02-10-2024 BP CONTROLLED (<130/80) BP CONTROLLE D (<130/80) [facility] Start: 01-05-2024 ANNUAL PCP TEAM MEDICAL MICROBIOLOGIST PARI DISEASE VISIT ANNUAL PCP TEAM CHRONIC DISEASE VISIT [facility] Start: 12-10-2023 ANNUAL PCP TEAM MEDICAL MICROBIOLOGIST PARI DISEASE VISIT ANNUAL PCP TEAM CHRONIC DISEASE VISIT [facility] Start: 11-09-2023 ANNUAL PCP TEAM MEDICAL MICROBIOLOGIST PARI DISEASE VISIT ANNUAL PCP TEAM CHRONIC DISEASE VISIT [facility] Start: 09-17-2023 ANNUAL PCP TEAM MEDICAL MICROBIOLOGIST PARI DISEASE VISIT ANNUAL PCP TEAM CHRONIC DISEASE VISIT [facility] Start: 09-02-2023 Mammography [facility] Start: 08-16-2023 ANNUAL PCP TEAM MEDICAL MICROBIOLOGIST PARI DISEASE VISIT ANNUAL PCP TEAM CHRONIC DISEASE VISIT [facility] Start: 07-29-2023 ANNUAL PCP TEAM MEDICAL MICROBIOLOGIST PARI DISEASE VISIT ANNUAL PCP TEAM CHRONIC DISEASE VISIT [facility] Start: 07-29-2023 BP CONTROLLED (<130/80) BP CONTROLLE D (<130/80) [facility] Start: 05-26-2023 Influenza vaccination LUNG CANCER SC REENING [facility] Start: 05-25-2023 BP CONTROLLED (<130/80) BP CONTROLLE D (<130/80) [facility] Start: 05-14-2023 ANNUAL PCP TEAM MEDICAL MICROBIOLOGIST PARI DISEASE VISIT ANNUAL PCP TEAM CHRONIC DISEASE VISIT [facility] Start: 05-07-2023 BP CONTROLLED (<130/80) BP CONTROLLE D (<130/80) [facility] Start: 04-01-2023 ANNUAL PCP TEAM MEDICAL MICROBIOLOGIST PARI DISEASE VISIT ANNUAL PCP TEAM CHRONIC DISEASE VISIT [facility] Start: 04-01-2023 BP CONTROLLED (<130/80) BP CONTROLLE D (<130/80) [facility] Start: 04-01-2023 SHINGRIX VACCINE (2 of 2) ULLOA GRIX VACCINE (2 of 2) [facility] Immunizations Immunization Date Immunization Notes Care Provider Fa aurelia 04-01-2022 COVID-19 booster vaccine, age 12+ yr, bivalent ([employer]) ASHLEY Palomares PA-C Work Phone: [facility] 04-01-2022 influenza, injectabl e, quadrivalent, contains preservative ASHLEY Palomares PA-C Work Phone: [facility] 04-01-2022 influenza virus vacc ine, unspecified formulation NA Palomares PA-C Work Phone: [facility] 11-12-2021 pneumococcal Conjuga te, unspecified formulation NA Palomares PA-C Work Phone: [facility] Work Phone: 11-12-2021 COVID-19 vaccine, ag e 12+ yr ([employer]) NA Palomares PA-C Work Phone: [facility] 11-12-2021 pneumococcal (PCV20) vaccine, 20 valent (PREVNAR 20) NA Palomares PA-C Work Phone: [facility] 11-12-2021 tetanus toxoid, redu ricky diphtheria toxoid, and acellular pertussis vaccine, adsorbed NA Palomares PA-C Work Phone: [facility] 11-12-2021 zoster vaccine recombinant NA Palomares PA-C Work Phone: [facility] 01-23-2021 COVID-19 vaccine (LEROY) NA Palomares PA-C Work Phone: [facility] 05-09-2019 influenza, seasonal, injectable NA Palomares PA-C Work Phone: [facility] 03-13-2018 influenza, injectabl e, quadrivalent, contains preservative NA Palomares PA-C Work Phone: [facility] Work Phone: 05-05-2017 influenza, injectabl e, quadrivalent, contains preservative NA Palomares PA-C Work Phone: [facility] Work Phone: 04-30-2016 influenza, seasonal, injectable, preservative free NA Palomares PA-C Work Phone: [facility] 02-27-2016 influenza, injectabl e, quadrivalent, contains preservative NA Palomares PA-C Work Phone: [facility] 02-26-2016 influenza, seasonal, injectable NA Palomares PA-C Work Phone: [facility] 06-04-2015 influenza, injectabl e, quadrivalent, contains preservative NA Palomares PA-C Work Phone: [facility] 06-04-2015 influenza, seasonal, injectable NA Palomares PA-C Work Phone: [facility] 06-03-2014 influenza, seasonal, injectable NA Palomares PA-C Work Phone: [facility] Work Phone: 05-02-2014 pneumococcal polysaccharide vaccine, 23 valent NA Palomares PA-C Work Phone: [facility] Work Phone: 06-20-2006 TD(adult) unspecifie d formulation NA Palomares PA-C Work Phone: [facility] 06-20-2006 tetanus and diphther ia toxoids, adsorbed, preservative free, for adult use (2 Lf of tetanus toxoid and 2 Lf of diphtheria toxoid) NA Palomares PA-C Work Phone: [facility] Payers Date Payer Category Payer Medicaid [id number] 2013 Medicaid [employer] [id number] 2013-Present [phone] [address] [place] [address] Medicaid [id number] 2013 Medicaid [id number]. [id number] 2013 Unknown [id number] 1970 Unknown [id number] Social History Date Type Detail Facility Start: 10-14-2016 End: 10-14-2022 Tobacco smoking status NHIS Smokes tobacco daily [facility] History of tobacco use Cigarette Smoker C [facility] Start: 10-14-2016 End: 07-02-2022 Cigarettes smoked current (pack per day) - Reported 0.75 [facility] Start: 10-14-2016 End: 10-14-2022 Tobacco use and exposure Smokeless tobacco non-user [facility] Start: 06-18-2021 End: 08-27-2021 Alcohol intake Current drinker of alcohol (finding) [facility] Start: 07-23-2021 History SDOH Alcohol Frequency 1 [facility] Start: 07-23-2021 History SDOH Alcohol Std Drinks 5 [facility] Start: 07-23-2021 History SDOH Social Connections Get Together 2 [facility] Start: 07-23-2021 History SDOH Social Connections Meetings 3 [facility] Start: 07-23-2021 History SDOH Stress 4 [facility] Start: 09-29-2015 End: 02-11-2022 Tobacco Comment started smoking 12yr .5 to .75 of pack daily-in process of quitting as of 09/29/15 [facility] Start: 1970 Sex Assigned At Female [facility] Start: 08-17-2021 End: 05-07-2022 Exposure to SARS-CoV-2 (event) Not sure [facility] Start: 11-23-2021 End: 05-10-2023 Alcohol intake Ex-drinker (finding) [facility] Start: 02-20-2022 End: 03-02-2022 Exposure to SARS-CoV-2 (event) Unable to assess [facility] Start: 07-29-2022 Tobacco Comment started smoking 14yr, 3 cigs daily [facility] Start: 07-23-2021 End: 07-02-2022 Social connection and isolation panel [facility] Frequency of Communication with Friends and Family Not on file [facility] Work Phone: Do you belong to any clubs or organizations such as worship groups, unions, fraternal or athletic groups, or school groups? Yes [facility] Are you now , , , , never or living with a partner? [facility] How often to you hav e a drink containing alcohol? Never [facility] How many standard dr inks containing alcohol do you have on a typical day? 10 or more [facility] How hard is it for y ou to pay for the very basics like food, housing, medical care, and heating Hard [facility] Do you feel stress - tense, restless, nervous, or anxious, or unable to sleep at night because your mind is troubled all the time - these days [OSQ] Rather much [facility] ([facility]We) [facility]our[facility] food would run out before (I/we) got money to buy more. Sometimes true [facility] The food that (I/we) bought just didn't last, and (I/we) didn't have money to get more. Never true [facility] At any time in the p ast 12 months, were you homeless or living in halfway [including now]? No [facility] Start: 03-05-2021 Gender identity Identifies as female gender (finding) [facility] Start: 03-05-2021 Sexual orientation Heterosexual (finding) [facility] Clinical Notes 05-02-2021 to 06-08-2023 Telephone Encounter - Agustina Guillen Ma - 05/25/2023 9:51 AM ESTTelephone Encounter - Flo Martino MD - 05/25/2023 9:38 AM Flo Reyna MD - 05/10/2023 11:12 AM EST Note Date & Type Note Facility 06-08-2023 Note HNO ID: [id number] Author: Liliam Rowell APRN.FITTER / WELDER Service: ? Author Type: Nurse Practitioner Type: Progress Notes Filed: 06/08/2023 1:03 PM Note Text: This is a 53 year old female who presents today with: Patient presents with: shelter follow up: zaki EVANGELISTA 06/06; transferred from [facility] HISTORY OF PRESENT ILLNESS: Mariluz Garcia is a 53 year old female. Patient presents with: shelter follow up: zaki EVANGELISTA 06/06; transferred from [facility] Pt presents today for hospital/shelter follow-up. Went to the hospital d/t arms and legs stopped working. Called squad to go to the ER. 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 Had C3-C5 ACDF on 05/18. Did well after surgery. Went to [facility] on 05/23 for additional rehab. Discharged [...] on her discharge medication list. Nursing called shelter and verified that patient is taking metoprolol [...] care 05/15/2020 HOSPITAL/ER FOLLOW UP Which facility: [facility] Dates of visit: 05/10-05/13/2020 Preadmission evaluation: ER [...] 05/01/2021 Date of discharge: Facility: [facility] 05/01/2021 presented to the emergency room with acute alcohol intoxication, initial alcohol level 7-8. Acknowledges over the last 5 months drinking 15 packs a day at 8% alcohol (joseaidan samaniego). Vital signs 96.6 F-78-18-111/73-98%. Appearance was no acute distress. WBC 7.9-Hgb 13.8-HCT 39 Encounter for support and coordination of transition of care 05/05/2022 05/05/2022 patient called squad, transported to [facility] with lightheadedness and multiple syncopal episodes one of them resulting in injury to her right foot. GERD (gastroesophageal reflux disease) Hyperglycemia Hypertension Lung abscess ([facility]) saw Néstor Li and Dr. Zarate. Major depression Mild protein-calorie malnutrition ([facility]) 08/26/2020 Obesity PE (pulmonary thromboembolism) ([facility]) PTSD (post-traumatic stress disorder) Snoring Tobacco use [...] Sig ibuprofen (MOT (more content not included)... [facility] 05-26-2023 Note HNO ID: [id number] Author: Rima Espinal PTA Service: ? Author Type: Hemp Fiber Taker Off Type: Progress Notes Filed: 05/26/2023 4:36 PM Note Text: 05/26/2023 [facility] PHYSICAL THERAPY DISCONTINUANCE [...] scheduled additional follow-up appointments. Rima Espinal PTA [facility] 05-25-2023 Miscellaneous Notes Patient notified and in nursing facility at this time Agustina Guillen Ma Patient's MRI of the cervical spine ordered by our office has not been approved by her insurance. It appears she had MRI of cervical spine at [facility] on 05/16 and was hospitalized after a fall. Will cancel our order. F/u with PCP team for hospital discharge. documented in this encounter [facility] 05-20-2023 Miscellaneous Notes Completed forms faxed Forms to providers desk to review and complete. Type of form: CMN/Incontinence Order Form from [facility] Form received via fax When form is completed, Fax form to [phone] Form has been forwarded to Provider Mailbox: ALEIDA Diane documented in this encounter [facility] 05-10-2023 Note HNO ID: [id number] Author: Flo Martino MD Service: ? Author Type: Physician Type: Progress Notes Filed: 05/11/2023 4:49 PM Note Text: Chief Complaint Patient presents with: ER F/U: Numbness and tingling in Bilateral hands HPI Mariluz Garcia is a 53 year old female who presents here today for ER Follow Up.. Patient evaluated at [facility] ED on 04/29 for complaint of tingling [...] care 05/15/2020 HOSPITAL/ER FOLLOW UP Which facility: [facility] Dates of visit: 05/10-05/13/2020 Preadmission evaluation: ER [...] 05/01/2021 Date of discharge: Facility: [facility] 05/01/2021 presented to the emergency room with acute alcohol intoxication, initial alcohol level 7-8. Acknowledges over the last 5 months drinking 15 packs a day at 8% alcohol (natty daddy). Vital signs 96.6 F-78-18-111/73-98%. Appearance was no acute distress. WBC 7.9-Hgb 13.8-HCT 39 Encounter for support and coordination of transition of care 05/05/2022 05/05/2022 patient called squad, transported to [facility] with lightheadedness and multiple syncopal episodes one of them resulting in injury to her right foot. GERD (gastroesophageal reflux disease) Hyperglycemia Hypertension Lung abscess ([facility]) saw Néstor Li and Dr. Zarate. Major depression Mild protein-calorie malnutrition ([facility]) 08/26/2020 Obesity PE (pulmonary thromboembolism) ([facility]) PTSD (post-traumatic stress disorder) Snoring Tobacco use [...] daily. metoprolol succinate (more content not included)... [facility] 05-10-2023 History of Present illness Narrative Chief Complaint Patient presents with: ER F/U: Numbness and tingling in Bilateral hands HPI Mariluz Garcia is a 53 year old female who presents here today for ER Follow Up.. Patient evaluated at [facility] ED on 04/29 for complaint of tingling [...] care 05/15/2020 HOSPITAL/ER FOLLOW UP Which facility: [facility] Dates of visit: 05/10-05/13/2020 Preadmission evaluation: ER [...] 05/01/2021 Date of discharge: Facility: [facility] 05/01/2021 presented to the emergency room with acute alcohol intoxication, initial alcohol level 7-8. Acknowledges over the last 5 months drinking 15 packs a day at 8% alcohol (natty daddy). Vital signs 96.6 F-78-18-111/73-98%. Appearance was no acute distress. WBC 7.9-Hgb 13.8-HCT 39 Encounter for support and coordination of transition of care 05/05/2022 05/05/2022 patient called squad, transported to [facility] with lightheadedness and multiple syncopal episodes one of them resulting in injury to her right foot. GERD (gastroesophageal reflux disease) Hyperglycemia Hypertension Lung abscess ([facility]) saw Néstor Li and Dr. Zarate. Major depression Mild protein-calorie malnutrition ([facility]) 08/26/2020 Obesity PE (pulmonary thromboembolism) ([facility]) PTSD (post-traumatic stress disorder) Snoring Tobacco use [...] joint swelling, deformity, or tenderness. Neurologic: 4/5 channel cementer strength bilaterally. 5/5 strength in arms. Decreased [...] Influenza Vaccine(1) due on 02/18/2023 Covid-19 Vaccine( season) due on 02/18/2023 Mammogram Screening due [...] Flo Martino MD documented in this encounter [facility] 03-11-2023 Note HNO ID: [id number] Author: Rima Espinal PTA Service: ? Author Type: Hemp Fiber Taker Off Type: Progress Notes Filed: 03/11/2023 1:25 PM [...] on stairs Entered the pool assist level: Callery, With rail Aquatic Therapy (56431): Walking, Lower Extremity, Stretching and Flexibility, Vertical / [place] - Buoyancy Supported Walking: Forward Walking, Lateral/ Side Stepping Water Turbulence: #1 Forward Walking: x5 Lateral/Side Stepping: x5 Lower Extremity: Hip Flexion, Hip Extension, Hip Abduction, Hip Circumduction Hip Flexion: 2x10 Hip Extension: 2x10 Hip Abduction: 2x10 Hip Circumduction: 5/5ea Vertical/[place] - Buoyancy Supported : Hip Abduction/ Adduction, [...] Stop Time : 1322 Rima Espinal PTA [facility] 03-11-2023 History of Present illness Narrative [...] on stairs Entered the pool assist level: Callery, With rail Aquatic Therapy (03728): Walking, Lower Extremity, Stretching and Flexibility, Vertical / [place] - Buoyancy Supported Walking: Forward Walking, Lateral/ Side Stepping Water Turbulence: #1 Forward Walking: x5 Lateral/Side Stepping: x5 Lower Extremity: Hip Flexion, Hip Extension, Hip Abduction, Hip Circumduction Hip Flexion: 2x10 Hip Extension: 2x10 Hip Abduction: 2x10 Hip Circumduction: 5/5ea Vertical/[place] - Buoyancy Supported : Hip Abduction/ Adduction, [...] Rima Espinal PTA documented in this encounter [facility] 03-09-2023 Miscellaneous Notes Completed and faxed. Type of form: DME Form received via fax When form is completed, Fax form to [phone] Form has been forwarded to Physician Mailbox: Faustino Mascorro LPN documented in this encounter [facility] 02-28-2023 Miscellaneous Notes Last OV: 01/04/23 - [...] Zoraida Garcia LPN documented in this encounter [facility] 02-16-2023 Note HNO ID: [id number] Author: Anay Esteban, PT Service: ? Author [...] up without use of hands on thighs Callery in home exercise program. Perform ADL's with decreased report of symptoms/pain in 6-8 weeks. Increased strength of (B) LE's by one full MMT grade or better Patient Goals: decreasde pain and improved function Planned Interventions, Frequency, and Duration: Current Frequency: 2x/week Duration: 8 weeks Total Number of Visits Planned: 16 Planned Treatment Interventions: Aquatic PT (22733), Therapeutic exercise (46732), Neuromuscular re-education (67776), Manual therapy (69575), Therapeutic activities (21100), Self-long-term management (52852), Gait Training (77134), Group Therapy (85186) PLAN FOR NEXT VISIT: begin aquatic therapy Patient demonstrates good understanding of plan of care and treatment. The above goals and plan of care were discussed and agreed upon by patient/family. SUBJECTIVE: pain in the (R) hip and (L) leg. Pain shoots down the left leg. All was exacerbated from a fall last December. Hip is [id number]. Patient Goals: decreasde pain and improved function [...] Education: Education Learni (more content not included)... [facility] 02-16-2023 History of Present illness Narrative [...] up without use of hands on thighs Callery in home exercise program. Perform ADL's with decreased report of symptoms/pain in 6-8 weeks. Increased strength of (B) LE's by one full MMT grade or better Patient Goals: decreasde pain and improved function Planned Interventions, Frequency, and Duration: Current Frequency: 2x/week Duration: 8 weeks Total Number of Visits Planned: 16 Planned Treatment Interventions: Aquatic PT (45198), Therapeutic exercise (73108), Neuromuscular re-education (22218), Manual therapy (06093), Therapeutic activities (23079), Self-long-term management (80005), Gait Training (45249), Group Therapy (03164) PLAN FOR NEXT VISIT: begin aquatic therapy Patient demonstrates good understanding of plan of care and treatment. The above goals and plan of care were discussed and agreed upon by patient/family. SUBJECTIVE: pain in the (R) hip and (L) leg. Pain shoots down the left leg. All was exacerbated from a fall last December. Hip is rtvm-[id number]. Patient Goals: decreasde pain and improved function [...] Anay Esteban PT documented in this encounter [facility] 02-14-2023 Note HNO ID: [id number] Author: Carmelita Ragsdale MD Service: ? Author [...] old premenopausal woman who presents to the [facility] [place] today for evaluation of breast pain. She [...] care 05/15/2020 HOSPITAL/ER FOLLOW UP Which facility: [facility] Dates of visit: 05/10-05/13/2020 Preadmission evaluation: ER [...] 05/01/2021 Date of discharge: Facility: [facility] 05/01/2021 presented to the emergency room with acute alcohol intoxication, initial alcohol level 7-8. Acknowledges over the last 5 months drinking 15 packs a day at 8% alcohol (natty daddy). Vital signs 96.6 F-78-18-111/73-98%. Appearance was no acute distress. WBC 7.9-Hgb 13.8-HCT 39 Encounter for support and coordination of transition of care 05/05/2022 05/05/2022 patient called squad, transported to [facility] with lightheadedness and multiple syncopal episodes one of them resulting in injury to her right foot. GERD (gastroesophageal reflux disease) Hyperglycemia Hypertension Lung abscess ([facility]) saw Néstor Li and Dr. Zarate. Major depression Mild protein-calorie malnutrition (HCC) 08/26/2020 Obesity PE (pulmonary thromboembolism) ([facility]) PTSD (post-traumatic stress disorder) Snoring Tobacco use [...] NRV CARPAL T (more content not included)... [facility] 02-14-2023 Instructions Agustina Brown PA-C - 02/14/2023 11:18 AM EDT Patient to call [phone] for appointment with genetics. documented in this encounter [facility] 02-14-2023 History of Present illness Narrative Images [...] old premenopausal woman who presents to the [facility] for evaluation of breast pain. [...] care 05/15/2020 HOSPITAL/ER FOLLOW UP Which facility: [facility] Dates of visit: 05/10-05/13/2020 Preadmission evaluation: ER [...] 05/01/2021 Date of discharge: Facility: [facility] 05/01/2021 presented to the emergency room with acute alcohol intoxication, initial alcohol level 7-8. Acknowledges over the last 5 months drinking 15 packs a day at 8% alcohol (nataidan samaniego). Vital signs 96.6 F-78-18-111/73-98%. Appearance was no acute distress. WBC 7.9-Hgb 13.8-HCT 39 Encounter for support and coordination of transition of care 05/05/2022 05/05/2022 patient called squad, transported to [facility] with lightheadedness and multiple syncopal episodes one [...] health. She will return in 3 months (Apr/May 2023) for follow-up evaluation of her breast [...] which included preparing to see the patient, vnwy-qu-wkmz patient care, completing clinical documentation, obtaining and/or reviewing separately obtained history, performing a medically appropriate examination, counseling and educating the patient/family/caregiver, ordering medications, tests, or procedures, communicating with other HCPs (not separately reported), independently interpreting results (not separately reported), communicating results to the patient/family/caregiver, and care coordination (not separately reported). Carmelita Ragsdale MD Medical Breast Specialist February 14, 2023 CC: Jenifer Yeager [address] [facility] [address] [address] [place] [address] documented in this encounter [facility] 02-14-2023 Miscellaneous Notes TC to pt who voiced understanding. Of results below. Jenifer Ngo LPN ----- Message from Urvashi Hughes APRN.FITTER / WELDER sent at 02/14/2023 7:30 AM EDT ----- EEG is normal and does not show any evidence of seizure activity. documented in this encounter [facility] 02-09-2023 Note HNO ID: [id number] Author: Ibeth Albert PA-C Service: ? Author Type: Physician Electronics Teacher Type: Progress Notes Filed: 02/09/2023 11:04 AM Note Text: [facility] [address] [address] 02/09/2023 ASSESSMENT AND PLAN: Assessment : Encounter [...] [facility] 2012 [facility] She has had intermittent LEFT lower extremity [...] today with this patient visit. This includes udqa-dy-rzqk time, review of chart records regarding conservative care history, spine-pertinent imaging, and communication/care coordination with referring provider, problem-specific history-taking and counseling/education regarding treatment options. cc: Jaimee Palomares [address] [facility] [id number] Results of consultation to be transmitted via electronic medical record for those providers who practice within [facility] or with access to [facility] via [facility] Connect, or via letter. ################################# ################################# ###### CHIEF COMPLAINT: Lower back pain HPI: see Discussion above History of bowel or bladder dysfunction (not IBS or constipation): Yes, urgency and incontinence. (more content not included)... [facility] 02-07-2023 Miscellaneous Notes Pharmacy requesting refill of [...] Fadumo Romero RN documented in this encounter [facility] 02-02-2023 Miscellaneous Notes I called patient regarding her upcoming new patient appointment on 02/14/[address] Ragsdale. She was referred by her RETAIL PROPERTY MANAGER Jenifer Yeager APRN. ALYSSA for dense breasts and left breast pain. [...] Bria Burton MA documented in this encounter [facility] 01-31-2023 Miscellaneous Notes In review of patient chart, all below have been scheduled. Nothing further at this time. BETTY Fernandez TC to patient who verbalized understanding of providers message below with no questions at this time. Patient is asking that a surgery scheduler contact her to assist with rescheduling her cancelled EEG as well as to set her up with the ordered Neuropsychological Testing ordered at [facility]. Please contact patient and assist with above. Thank you!. BETTY Fernandez ----- Message from Urvashi Hughes APRN.FITTER / WELDER sent at 01/27/2023 7:44 AM EDT ----- Please let pt know her MRI of the brain does not show any new changes or concerns. Results are unchanged since her previous image in 03/2022. No findings to explain her recent symptoms. documented in this encounter [facility] 01-31-2023 Miscellaneous Notes Patient has been identified [...] advise. Fadumo Castañeda documented in this encounter [facility] 01-28-2023 Miscellaneous Notes Refill request: Requested Prescriptions [...] Fadumo Romero RN documented in this encounter [facility] 01-26-2023 Note HNO ID: [id number] Author: Bharti Gant RT(R) Service: ? Author [...] RT Benson(R) January 26, 2023 11:39 AM [facility] 01-26-2023 History of Present illness Narrative Radiology [...] 2023 11:39 AM documented in this encounter [facility] 01-14-2023 Miscellaneous Notes Letter written. Does she need to cancel her injection in [place] on 01/19? Deloris Troy III, [place], [place] Patient has called in asking for a release of care from our office as she will be going to a different Pain Management. She will also be going to the [place] office on to fill out the medical records release form. Please advise. Laura Villegas documented in this encounter [facility] 01-06-2023 Miscellaneous Notes Patient has been identified [...] Hanna Mares RN documented in this encounter [facility] 01-05-2023 Miscellaneous Notes I don't have another [...] not beneficial we should taper and discontinue. ThanksFaustino PA-C Patient has been identified by name [...] Sruthi Piña LPM documented in this encounter [facility] 01-04-2023 Note HNO ID: [id number] Author: Jaimee Palomares PA-C Service: ? Author Type: Physician Electronics Teacher Type: Progress Notes Filed: 01/05/2023 1:49 PM Note Text: 52 year old female with c/o ER hospital follow-up 12/29/2022 presented to [facility] emergency department with complaint of diffuse headache, [...] walk and bear weight after. Persistent headache, 8-02/27, pain in neck with popping on turning. [...] care 05/15/2020 HOSPITAL/ER FOLLOW UP Which facility: [facility] Dates of visit: 05/10-05/13/2020 Preadmission evaluation: ER [...] 05/01/2021 Date of discharge: Facility: [facility] 05/01/2021 presented to the emergency room with acute alcohol intoxication, initial alcohol level 7-8. Acknowledges over the last 5 months drinking 15 packs a day at 8% alcohol (marcin samaniego). Vital signs 96.6 F-78-18-111/73-98%. Appearance was no acute distress. WBC 7.9-Hgb 13.8-HCT 39 Encounter for support and coordination of transition of care 05/05/2022 05/05/2022 patient called squad, transported to [facility] with lightheadedness and multiple syncopal episodes (more content not included)... [facility] 01-03-2023 Miscellaneous Notes Patient called requesting the following refill. Requested Prescriptions Pending Prescriptions Disp Refills oxybutynin ER (DITROPAN XL) 10 mg 24 hr tablet [Pharmacy Med Name: Oxybutynin Chloride ER 10MG TB24] 30 tablet 11 Sig: TAKE 1 TABLET BY MOUTH DAILY Patient last appointment: 11/05/2022 Patient Phone numbers: [phone] (home) Request is for script(s) to be escript to pharmacy. Vu Moura Ma documented in this encounter [facility] 12-23-2022 Miscellaneous Notes Patient has been cancelled [...] request does not meet the guidelines.Guidelines used: [place] Administrative Code Rule 5160-4-12 Immunizations, injections and infusions (including trigger-point injections), skin substitutes, and provider-administered pharmaceuticals; [place] Administrative Code 5160-1-01; [facility] Trigger Point Injections (MM-0011) Date of Service 01/13/23 Is Peer to Peer Available? (Instructions below) Yes Peer to Peer Deadline Until (5 business days) Appeal Deadline (Instructions below) 180 calendars days from 12/18/22 Insurance Case Information Insurance Name Jv Patient's Insurance Case# [id number] Ordering Provider DELORIS TROY Approved Services Denied Services 67811 (CPT ) - TRIGGER POINT INJECTION MULTI 3+ MUSCLE GRP Alternative Recommendation N/A *Service which can be approved in place of denied service. Clinical Documentation Provided Peer to Peer Instructions Peer to Peer opt 1 Does Peer to Peer need to be scheduled? Yes, by leaving a voice mail requesting a call back. Who can complete the Peer to Peer? Dr, PA, LICENSED AUDIOLOGIST, LN Additional Peer to Peer Instructions You [...] Facility Information Location [facility] [id number] Tax ID# [id number] documented in this encounter [facility] 12-16-2022 Miscellaneous Notes No Show Documentation Mariluz [...] the Third or Fourth No Show ? Yaneth Auguste December 16, 2022 2:28 PM documented in this encounter [facility] 12-16-2022 Note HNO ID: [id number] Author: Urvashi Hughes APRN.CNP Service: ? Author Type: Nurse Practitioner Type: Progress Notes Filed: 12/16/2022 1:17 PM Note Text: [facility] Follow-up Visit Follow-up note December 16, 2022 [...] Words, up to 2 trials: Face, Velvet, Orthodox, Yudith, Red (no points) 5/5 first try, [...] 1 error) (06/20) Serial subtraction by 7: [id number] (3 points for correct 4 or 5; 2 points for 2 or 3 correct; 1 point for 1 correct) [id number] (/) Language: repeat: I only know that [...] words: face, velvet, worship, yudith, red (0-5) (/5) Orientation: date(1), month(1), year(1), day(1), place(1), city(1) max 6 points (6/6) Level of education: add 1 if did not receive more than a HS education +1 Total Score max 30 (+1) (27) PAST MEDICAL HISTORY Diagnosis Date Alcohol abuse Anemia Back pain Blood dyscrasia Cervical spondylosis without myelopathy Cholecystitis 04/2020 Chronic hepatitis C (HCC) DDD (degenerative di (more content not included)... [facility] 12-16-2022 History of Present illness Narrative Images from the original note were not included. [facility] Follow-up Visit Follow-up note December 16, 2022 [...] Words, up to 2 trials: Face, Velvet, Orthodox, Yudith, Red (no points) 5/5 first try, [...] 1 error) (06/20) Serial subtraction by 7: [id number] (3 points for correct 4 or 5; 2 points for 2 or 3 correct; 1 point for 1 correct) [id number] (3/3) Language: repeat: I only know that [...] care 05/15/2020 HOSPITAL/ER FOLLOW UP Which facility: [facility] Dates of visit: 05/10-05/13/2020 Preadmission evaluation: ER [...] 05/01/2021 Date of discharge: Facility: [facility] 05/01/2021 presented to the emergency room with acute alcohol intoxication, initial alcohol level 7-8. Acknowledges over the last 5 months drinking 15 packs a day at 8% alcohol (marcin josealfa). Vital signs 96.6 F-78-18-111/73-98%. Appearance was no acute distress. WBC 7.9-Hgb 13.8-HCT 39 Encounter for support and coordination of transition of care 05/05/2022 05/05/2022 patient called squad, transported to [facility] with lightheadedness and multiple syncopal episodes one of them resulting in injury to her right foot. GERD (gastroesophageal reflux disease) Hyperglycemia Hypertension Lung abscess ([facility]) saw Néstor Li and Dr. Zarate. Major depression Mild protein-calorie malnutrition ([facility]) 08/26/2020 Obesity PE (pulmonary thromboembolism) ([facility]) PTSD (post-traumatic stress disorder) Snoring Tobacco use [...] Abs Lymph 1.00 - 4.00 k/uL 1.75 Houghton% % 9.1 Abs [place]oughton <0.87 k/uL 0.67 Eosin% % 4.1 Abs [...] Alcohol abuse, in remission F19.10 Polysubstance abuse ([facility]) Z79.899 Polypharmacy R26.89 Balance problem R29.6 Falls [...] Office Visit on 12/16/22 MRI BRAIN WO IVCON CONSULT TO PSYCHIATRY NEUROPSYCHOLOGICAL TESTING CONSULT EPIL EEG ROUTINE Urvashi Hughes APRN.ALYSSA I spent a total of 45 minutes on the date of the service which included preparing to see the patient, lxrc-yi-odjq patient care, completing clinical documentation, obtaining and/or reviewing separately obtained history, performing a medically appropriate examination, counseling and educating the patient/family/caregiver, and ordering medications, tests, or procedures. documented in this encounter [facility] 12-10-2022 Miscellaneous Notes The following approved medication requests have been transmitted electronically. Requested Prescriptions Signed Prescriptions Disp Refills Blood Pressure Monitor 1 Kit 0 Si Each once daily. ICD 10 code I10 Authorizing Provider: Jaimee PALOMARES PA-C PaytonEvelyn MART reports she received a faxed order for BP cuff. States she needs order to state BP monitor, and she needs it to have an ICD 10 code on it, and she needs it to be e-scripted to them. Pended. documented in this encounter [facility] 12-10-2022 Miscellaneous Notes Patient calls to request order for BP cuff be sent to [facility]. Faxed per request to [phone]. Hanna Mares RN documented in this encounter [facility] 12-09-2022 Note HNO ID: [id number] Author: Jaimee Palomares PA-C Service: ? Author Type: Physician Electronics Teacher Type: Progress Notes Filed: 12/09/2022 7:56 PM [...] care 05/15/2020 HOSPITAL/ER FOLLOW UP Which facility: [facility] Dates of visit: 05/10-05/13/2020 Preadmission evaluation: ER [...] 05/01/2021 Date of discharge: Facility: [facility] 05/01/2021 presented to the emergency room with acute alcohol intoxication, initial alcohol level 7-8. Acknowledges over the last 5 months drinking 15 packs a day at 8% alcohol (marcin samaniego). Vital signs 96.6 F-78-18-111/73-98%. Appearance was no acute distress. WBC 7.9-Hgb 13.8-HCT 39 Encounter for support and coordination of transition of care 05/05/2022 05/05/2022 patient called [facility], transported to [facility] with lightheadedness and multiple syncopal episodes one of them resulting in injury to her right foot. GERD (gastroesophageal reflux disease) Hyperglycemia Hypertension Lung abscess (HCC) saw Néstor Li and Dr. Zarate. Major depression Mild protein-calorie malnutrition (HCC) 08/26/2020 Obesity PE (pulmonary thromboembolism) ([facility]) PTSD (post-traumatic stress disorder) Snoring Tobacco use [...] Spondylosis Without Myel (more content not included)... [facility] 12-09-2022 History of Present illness Narrative 52 [...] care 05/15/2020 HOSPITAL/ER FOLLOW UP Which facility: [facility] Dates of visit: 05/10-05/13/2020 Preadmission evaluation: ER [...] 05/01/2021 Date of discharge: Facility: [facility] 05/01/2021 presented to the emergency room with acute alcohol intoxication, initial alcohol level 7-8. Acknowledges over the last 5 months drinking 15 packs a day at 8% alcohol (marcin samaniego). Vital signs 96.6 F-78-18-111/73-98%. Appearance was no acute distress. WBC 7.9-Hgb 13.8-HCT 39 Encounter for support and coordination of transition of care 05/05/2022 05/05/2022 patient called squad, transported to [facility] with lightheadedness and multiple syncopal episodes one of them resulting in injury to her right foot. GERD (gastroesophageal reflux disease) Hyperglycemia Hypertension Lung abscess (HCC) saw Néstor Li and Dr. Zarate. Major depression Mild protein-calorie malnutrition (HCC) 08/26/2020 Obesity PE (pulmonary thromboembolism) ([facility]) PTSD (post-traumatic stress disorder) Snoring Tobacco use [...] Pain With Left-Sided Sciatica Pe (Pulmonary Thromboembolism) ([facility]) Hyperglycemia Stasis Edema Right Lumbar Radiculopathy Obesity, Class III, BMI >= 40 (morbid obesity) E66.01 Delusional Disorder ([facility]) Chronic Low Back Pain With Sciatica Abnormal Echocardiogram Chronic Left-Sided Low Back Pain With Sciatica Copd (Chronic Obstructive Pulmonary Disease) With Chronic Bronchitis ([facility]) Positive Urine Drug Screen Lumbar Spondylosis Cervical Spondylosis Without Myelopathy Other Chest Pain Stress Incontinence Chronic Active Hepatitis C ([facility]) History of Colonic Polyps Traumatic Closed Nondisp [...] Jaimee Palomares PA-C documented in this encounter [facility] 11-22-2022 Miscellaneous Notes Patient calling to say she was seen in [facility] ER today. She says she was given [...] 7. :NO Protocols used: Blood Pressure - [id number] documented in this encounter [facility] 11-22-2022 Miscellaneous Notes Last OV: 11/08/22. - [...] Zoraida Garcia LPN documented in this encounter [facility] 11-08-2022 Note HNO ID: [id number] Author: Jaimee Palomares PA-C Service: ? Author Type: Physician Electronics Teacher Type: Progress Notes Filed: 11/08/2022 8:05 PM [...] having emergency surgery for hernia sent to [facility]. Still having some flashes shoot behind eyes [...] care 05/15/2020 HOSPITAL/ER FOLLOW UP Which facility: [facility] Dates of visit: 05/10-05/13/2020 Preadmission evaluation: ER [...] 05/01/2021 Date of discharge: Facility: [facility] 05/01/2021 presented to the emergency room with acute alcohol intoxication, initial alcohol level 7-8. Acknowledges over the last 5 months drinking 15 packs a day at 8% alcohol (marcin samaniego). Vital signs 96.6 F-78-18-111/73-98%. Appearance was no acute distress. WBC 7.9-Hgb 13.8-HCT 39 Encounter for support and coordination of transition of care 05/05/2022 05/05/2022 patient called squad, transported to [facility] with lightheadedness and multiple syncopal episodes one of them resulting in injury to her right foot. GERD (gastroesophageal reflux disease) Hyperglycemia Hypertension Lung abscess ([facility]) saw Néstor Li and Dr. Zarate. Major depression Mild protein-calorie malnutrition ([facility]) 08/26/2020 Obesity PE (pulmonary thromboembolism) ([facility]) PTSD (post-traumatic stress disorder) Snoring Tobacco use [...] smoking 14yr, 3 (more content not included)... [facility] 10-26-2022 Miscellaneous Notes Patient has been identified [...] Maribell Baltazar LPN documented in this encounter [facility] 10-20-2022 Note HNO ID: [id number] Author: Jenifer Yeager APRN.AKOSUA Service: ? Author Type: Assisted Living Executive Director Type: Progress Notes Filed: 10/20/2022 9:15 PM [...] L0 SAB0 IAB0 Ectopic0 Multiple0 Live Births0 Academic Advising Director History LMP: Hysterectomy Age at Menarche: Age at First : Age at Menopause: Academic Advising Director History Comments: Sexual Activity: Not Currently; No [...] care 05/15/2020 HOSPITAL/ER FOLLOW UP Which facility: [facility] Dates of visit: 05/10-05/13/2020 Preadmission evaluation: ER [...] 05/01/2021 Date of discharge: Facility: [facility] 05/01/2021 presented to the emergency room with acute alcohol intoxication, initial alcohol level 7-8. Acknowledges over the last 5 months drinking 15 packs a day at 8% alcohol (marcin samaniego). Vital signs 96.6 F-78-18-111/73-98%. Appearance was no acute distress. WBC 7.9-Hgb 13.8-HCT 39 Encounter for support and coordination of transition of care 05/05/2022 05/05/2022 patient called squad, transported to [facility] with lightheadedness and multiple syncopal episodes one [...] autograft, fell in firepit TONSILLECTOMY AND ADENOIDECTOMY FAMILY HISTORY Problem Relation [...] 800 mg table (more content not included)... [facility] 10-20-2022 Instructions Jenifer Yeager APRN.[facility] - 10/20/2022 11:32 AM EDT Management of Benign Breast Pain / Fibrocystic Changes Decrease or avoid intake of caffeine, including coffee, teas, sodas, and chocolate. Decrease or avoid nicotine. Wear a support or sports (not underwire) bra. Take gopk-vyp-pbxehlk ibuprofen (Advil/Motrin) or other NSAIDs, such as naproxen (Aleve). Take 3 grams (3000 mg.) of evening primrose oil (available qidj-zsy-mcqngur) in divided doses for 2 months. Take [...] your health care provider. You cannot purchase sgkt-kek-vdzhzzy products to treat BV. Products for douching [...] swelling, or soreness around the vagina Copyright 2027-3667 [facility]. All rights reserved. This information is provided by the [facility] and is not intended to replace the medical advice of your doctor or health care provider. Please consult your health care provider for advice about a specific medical condition. For additional written health information, please contact the Health Information Center at the [facility] or toll-free extension [phone] or visit [email or web address] This document was last reviewed on: 2009 documented in this encounter [facility] 10-20-2022 History of Present illness Narrative Mariluz [...] L0 SAB0 IAB0 Ectopic0 Multiple0 Live Births0 Academic Advising Director History LMP: Hysterectomy Age at Menarche: Age at First : Age at Menopause: Academic Advising Director History Comments: Sexual Activity: Not Currently; No [...] care 05/15/2020 HOSPITAL/ER FOLLOW UP Which facility: [facility] Dates of visit: 05/10-05/13/2020 Preadmission evaluation: ER [...] 05/01/2021 Date of discharge: Facility: [facility] 05/01/2021 presented to the emergency room with acute alcohol intoxication, initial alcohol level 7-8. Acknowledges over the last 5 months drinking 15 packs a day at 8% alcohol (marcin josealfa). Vital signs 96.6 F-78-18-111/73-98%. Appearance was no acute distress. WBC 7.9-Hgb 13.8-HCT 39 Encounter for support and coordination of transition of care 05/05/2022 05/05/2022 patient called squad, transported to [facility] with lightheadedness and multiple syncopal episodes one of them resulting in injury to her right foot. GERD (gastroesophageal reflux disease) Hyperglycemia Hypertension Lung abscess ([facility]) saw Néstor Li and Dr. Zarate. Major depression Mild protein-calorie malnutrition (HCC) 08/26/2020 Obesity PE (pulmonary thromboembolism) ([facility]) PTSD (post-traumatic stress disorder) Snoring Tobacco use [...] Jenifer Yeager APRN.CNM documented in this encounter [facility] 10-14-2022 Note HNO ID: [id number] Author: Shruthi Keita MA Service: ? Author Type: Strawhat Inspector And Packer Type: Progress Notes Filed: 10/14/2022 1:57 PM [...] and suicidal ideas. The patient is nervous/anxious. [facility] 10-14-2022 History of Present illness Narrative [...] not included. [facility] Name: Mariluz Garcia : 1970 Purpose: [...] Therapy (Aquatic) - completed her course at [facility]. Completed since July. Studies Obtained: none [...] DATE OF EXAM: Jun 05 2021 10:50AM MK 0303 - MRI LUMBAR SPINE WO IVCON [...] This information is taken directly from the recorder of deeds system. TECHNIQUE: Routine lumbosacral spine MR protocol [...] scoliotic curvature convex left visible on the manager mutual fund. Herman at L4-L5. Mild straightening of usual lumbar [...] impingement of the distal cord within the cdpnu-gk-gedd. Paraspinal soft tissues: As above. No paraspinal [...] annulus, and facet degenerative change contributes to knle-bd-imelnnfg right foraminal narrowing. L4-L5: Disk bulging, loss [...] and assume there are 5 lumbar-type vertebrae. Field Clerk: CJ Transcribe Date/Time: Jun 05 2021 11:26A [...] holding to see if truly helping [facility]: Home Exercise Program under provider supervisions - [...] medical decision making from today's date. Deloris LANDRUMA Pain Management [facility] documented in this encounter [facility] 10-07-2022 Miscellaneous Notes Spoke with patient and [...] call and advise. documented in this encounter [facility] 10-06-2022 Note HNO ID: [id number] Author: Deloris Troy MD Service: ? Author Type: Physician Type: Progress Notes Filed: 10/14/2022 1:57 PM Note Text: [facility] Name: Mariluz Garcia : 1970 Purpose: [...] Therapy (Aquatic) - completed her course at [facility]. Completed since July. Studies Obtained: none [...] This information is taken directly from the recorder of deeds system. TECHNIQUE: Routine lumbosacral spine MR protocol [...] scoliotic curvature convex left visible on the manager mutual fund. Herman at L4-L5. Mild straightening of usual lumbar lordosis and slightly kyphotic alignment at the level of L1 related to minimal old anterior wedging morphology of L1. Bone marrow signal/fracture: Advanced endplate degenerative change at L1-L2 through the L4 (more content not included)... [facility] 09-16-2022 Note HNO ID: [id number] Author: Jaimee Palomares PA-C Service: ? Author Type: Physician Electronics Teacher Type: Progress Notes Filed: 09/16/2022 3:41 PM [...] Drug use 08/15/2018 ecstacy Emphysema of lung ([facility]) Encounter for support and coordination of transition of care 05/15/2020 HOSPITAL/ER FOLLOW UP Which facility: [facility] Dates of visit: 05/10-05/13/2020 Preadmission evaluation: ER [...] 05/01/2021 Date of discharge: Facility: [facility] 05/01/2021 presented to the emergency room with acute alcohol intoxication, initial alcohol level 7-8. Acknowledges over the last 5 months drinking 15 packs a day at 8% alcohol (nataidan samaniego). Vital signs 96.6 F-78-18-111/73-98%. Appearance was no acute distress. WBC 7.9-Hgb 13.8-HCT 39 Encounter for support and coordination of transition of care 05/05/2022 05/05/2022 patient called squad, transported to [facility] with lightheadedness and multiple syncopal episodes one of them resulting in injury to her right foot. GERD (gastroesophageal reflux disease) Hyperglycemia Hypertension Lung abscess (HCC) saw Néstor Li and Dr. Zarate. Major depression Mild protein-calorie malnutrition (HCC) 08/26/2020 Obesity PE (pulmonary thromboembolism) ([facility]) PTSD (post-traumatic stress disorder) Snoring Tobacco use [...] (Degenerative Disc Disease), Lumbar Emphysema of Lung ([facility]) Tobacco Use Disorder Hypertension Gerd (Gastroesophageal Reflux [...] (Chronic Obstructive Pulm (more content not included)... [facility] 09-16-2022 History of Present illness Narrative 52 [...] Drug use 08/15/2018 ecstacy Emphysema of lung ([facility]) Encounter for support and coordination of transition of care 05/15/2020 HOSPITAL/ER FOLLOW UP Which facility: [facility] Dates of visit: 05/10-05/13/2020 Preadmission evaluation: ER [...] 05/01/2021 Date of discharge: Facility: [facility] 05/01/2021 presented to the emergency room with acute alcohol intoxication, initial alcohol level 7-8. Acknowledges over the last 5 months drinking 15 packs a day at 8% alcohol (nataidan samaniego). Vital signs 96.6 F-78-18-111/73-98%. Appearance was no acute distress. WBC 7.9-Hgb 13.8-HCT 39 Encounter for support and coordination of transition of care 05/05/2022 05/05/2022 patient called squad, transported to [facility] with lightheadedness and multiple syncopal episodes one of them resulting in injury to her right foot. GERD (gastroesophageal reflux disease) Hyperglycemia Hypertension Lung abscess ([facility]) saw Néstor Li and Dr. Zarate. Major depression Mild protein-calorie malnutrition (HCC) 08/26/2020 Obesity PE (pulmonary thromboembolism) ([facility]) PTSD (post-traumatic stress disorder) Snoring Tobacco use [...] Jaimee Palomares PA-C documented in this encounter [facility] 09-01-2022 Miscellaneous Notes TC to pt, notified [...] let us know. documented in this encounter [facility] 09-01-2022 Note HNO ID: [id number] Author: Jenifer Escalante RDMS Service: ? Author Type: Chief Of Pediatric Urology Type: Progress Notes Filed: 09/01/2022 2:51 PM [...] RDMS RVT September 01, 2022 2:51 PM [facility] 09-01-2022 Note HNO ID: [id number] Author: RT Angela(R) Service: ? Author Type: Technologist Type: Progress [...] RT Angela(R) September 01, 2022 1:58 PM [facility] 09-01-2022 History of Present illness Narrative [...] 2022 2:51 PM documented in this encounter [facility] 09-01-2022 History of Present illness [...] 2022 1:58 PM documented in this encounter [facility] 08-27-2022 Miscellaneous Notes Spoke to patient & advised provider just wanted to have a routine f/u in 3 months per her request & will decide if the 6 months appt at that time is necessary. Patient verbalized understanding of instructions. Scheduled with LISETTE 11/25 @ 145PM. Trina Newton MA Patient returned call and went over notes below and patient is asking why did LICENSED AUDIOLOGIST change her mind and now wants her [...] Trina Newton MA documented in this encounter [facility] 08-26-2022 Note HNO ID: [id number] Author: Urvashi Hughes APRN.FITTER / WELDER Service: ? Author Type: Nurse Practitioner Type: Progress Notes Filed: 08/26/2022 1:20 PM Note Text: [facility] Follow-up Visit Follow-up note August 26, 2022 HPI: Ms. Garcia presents today for a follow-up visit. Per her previous visit with Dr. Leayh on 05/07/22: ASSESSMENT/PLAN: 1. Cognitive impairment - [...] day by day. Feels both short and watermaster memory have changed. States she can remember [...] Words, up to 2 trials: Face, Velvet, Orthodox, Yudith, Red (no points) 3/5 first try, [...] 1 error) (0/1) Serial subtraction by 7: [id number] (3 points for correct 4 or 5; 2 points for 2 or 3 correct; 1 point for 1 correct) [id number] (3/3) Language: repeat: I only know that Laith is the one to help today (0-1) (/) Language: repeat: The cat always hid under [...] care 05/15/2020 HOSPITAL/ER FOLLOW UP Which facility: [facility] Dates of visit: 05/10-05/13/2020 Preadmission evaluation: ER with right-sided abdominal pain over 2-1/2 hours, 10 out of 10. Worse (more content not included)... [facility] 08-26-2022 History of Present illness Narrative Images from the original note were not included. [facility] Follow-up Visit Follow-up note August 26, 2022 [...] day by day. Feels both short and watermaster memory have changed. States she can remember [...] Words, up to 2 trials: Face, Velvet, Orthodox, Yudith, Red (no points) 3/5 first try, 5/ second try Attention forwards: 2 1 8 [...] 1 error) (0/1) Serial subtraction by 7: [id number] (3 points for correct 4 or 5; 2 points for 2 or 3 correct; 1 point for 1 correct) [id number] (/) Language: repeat: I only know that Laith is the one to help today (0-1) (1) Language: repeat: The cat always hid under the couch when dogs were in the room (0-1) (/) Fluency: max words beginning with the letter F (1 point if 11 or more words) lllll lllll ll (/) Abstraction: practice banana-orange=fruit. Then train-bicycle (1) AND watch-ruler (1) total: (2) (2/2) Delayed recall: recall words: face, velvet, worship, yudith, red (0-5) (10/22) Orientation: date(1), month(1), year(1), day(1), place(1), city(1) [...] Drug use 08/15/2018 ecstacy Emphysema of lung ([facility]) Encounter for support and coordination of transition of care 05/15/2020 HOSPITAL/ER FOLLOW UP Which facility: [facility] Dates of visit: 05/10-05/13/2020 Preadmission evaluation: ER [...] 05/01/2021 Date of discharge: Facility: [facility] 05/01/2021 presented to the emergency room with acute alcohol intoxication, initial alcohol level 7-8. Acknowledges over the last 5 months drinking 15 packs a day at 8% alcohol (nataidan samaniego). Vital signs 96.6 F-78-18-111/73-98%. Appearance was no acute distress. WBC 7.9-Hgb 13.8-HCT 39 Encounter for support and coordination of transition of care 05/05/2022 05/05/2022 patient called squad, transported to [facility] with lightheadedness and multiple syncopal episodes one of them resulting in injury to her right foot. GERD (gastroesophageal reflux disease) Hyperglycemia Hypertension Lung abscess (HCC) saw Néstor Li and Dr. Zarate. Major depression Mild protein-calorie malnutrition (HCC) 08/26/2020 Obesity PE (pulmonary thromboembolism) ([facility]) PTSD (post-traumatic stress disorder) Snoring Tobacco use [...] Abs Lymph 1.00 - 4.00 k/uL 1.75 Houghton% % 9.1 Abs Houghton <0.87 k/uL 0.67 Eosin% % 4.1 Abs [...] which included preparing to see the patient, [id number] patient care, completing clinical documentation, obtaining and/or reviewing separately obtained history, performing a medically appropriate examination, and counseling and educating the patient/family/caregiver. documented in this encounter [facility] 08-17-2022 Miscellaneous Notes Patient has been identified [...] Sruthi Piña LPN documented in this encounter [facility] 08-16-2022 Miscellaneous Notes Last OV: 08/16/22 Patient has been identified by name and date of : Yes Requested Prescriptions Pending Prescriptions Disp Refills Cholecalciferol, Vitamin D3, (VITAMIN D) 25 mcg (1,000 unit) cap 90 capsule 1 Sig: Take 1 capsule by mouth once daily. RX INSTRUCTIONS: Pharmacy initiated this request. No need to notify patient. Zoraida Garcia LPN documented in this encounter [facility] 08-16-2022 Note HNO ID: [id number] Author: Jaimee Palomares PA-C Service: ? Author Type: Physician Electronics Teacher Type: Progress Notes Filed: 08/16/2022 1:40 PM [...] disease) with chronic bronchitis (hcc) Centrilobar emphysema Pelletizer Operator: none. Interval history: none. Current medications: Albuterol [...] suspicious mass or adenopathy. 05/05/2022 CTA chest [facility] admit: Mild peribronchial thickening with layered fluid [...] Radiculopathy, lumbar region Pain management Dr. Troy, [facility] Current medications: Baclofen 10mg twice a day as needed Pregabalin 150mg twice a day Consult PT Can't sleep. Shooting pain from left buttock down leg in to left foot. 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 Taking everything she can. Tearful, c/o no one treating her pain. Wants medication for pain. States she wants surgery: see neurosurgeon at [facility] 06/24/2022 CT cervical spine without contrast [facility] ED, comparison 05/05/2022: Degenerative changes of anterior [...] of Onset Hy (more content not included)... [facility] 08-16-2022 Instructions Jaimee Palomares PA-C - 08/16/2022 11:47 AM EST See piriformis stretches; try 2-3 times a day. documented in this encounter [facility] 08-16-2022 History of Present illness Narrative 52 [...] disease) with chronic bronchitis (hcc) Centrilobar emphysema Pelletizer Operator: none. Interval history: none. Current medications: Albuterol [...] suspicious mass or adenopathy. 05/05/2022 CTA chest [facility] admit: Mild peribronchial thickening with layered fluid [...] Radiculopathy, lumbar region Pain management Dr. Troy, [facility] Current medications: Baclofen 10mg twice a day as needed Pregabalin 150mg twice a day Consult PT Can't sleep. Shooting pain from left buttock down leg in to left foot. 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 Taking everything she can. Tearful, c/o no one treating her pain. Wants medication for pain. States she wants surgery: see neurosurgeon at [facility] 06/24/2022 CT cervical spine without contrast [facility] ED, comparison 05/05/2022: Degenerative changes of anterior [...] care 05/15/2020 HOSPITAL/ER FOLLOW UP Which facility: [facility] Dates of visit: 05/10-05/13/2020 Preadmission evaluation: ER [...] 05/01/2021 Date of discharge: Facility: [facility] 05/01/2021 presented to the emergency room with [...] malnutrition (HCC) 08/26/2020 Obesity PE (pulmonary thromboembolism) ([facility]) PTSD (post-traumatic stress disorder) Snoring Tobacco use [...] ICD9: 492.8, ICD10: J43.2 Stable, follows with [facility] 6. Alcohol abuse - ICD9: 305.00, [...] (HCC) - ICD9: 297.1, ICD10: F22 Stable, follws with Dr. Garay. 13. Stasis edema of [...] [facility]ural [facility] Encouraged f/u with pain management Jaimee Palomares PA-C Some of this note may have been copied and pasted for the purpose of history context and comparison. documented in this encounter [facility] 08-12-2022 Miscellaneous Notes Patient phones requesting refills as follows: Requested Prescriptions Pending Prescriptions Disp Refills omeprazole (PRILOSEC) 20 mg capsule [Pharmacy Med Name: Omeprazole 20MG CPDR] 30 capsule 5 Sig: TAKE 1 CAPSULE BY MOUTH DAILY Please review and advise. Alison Demarco Ma documented in this encounter [facility] 08-05-2022 Miscellaneous Notes CORY: 07/29/22 NOV 08/16/22 [...] Stephany Bowser Pss documented in this encounter [facility] 07-29-2022 Note HNO ID: [id number] Author: Memo Huber MD Service: ? Author [...] other than her urine is strong. 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 Mild occasional headaches. No neuro issues. Had ct of chest done in 06/10 Had mri of the brain in the fall. Ct of head and spine recently after a fall. 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 Chantix [Vareniclin* Intolerance hallucinations PAST MEDICAL HISTORY Diagnosis Date Alcohol abuse Anemia Back pain Blood dyscrasia Cervical spondylosis without myelopathy Cholecystitis 04/2020 DDD (degenerative disc disease), lumbar Depression with anxiety Drug use 08/15/2018 ecstacy Emphysema of lung (HCC) Encounter for support and coordination of transition of care 05/15/2020 HOSPITAL/ER FOLLOW UP Which facility: [facility] Dates of visit: 05/10-05/13/2020 Preadmission evaluation: ER [...] of admission 05/01/2021 Date of discharge: Facility: [facility] (more content not included)... [facility] 07-29-2022 Note HNO ID: [id number] Author: Shruthi Keita MA Service: ? Author Type: Strawhat Inspector And Packer Type: Progress Notes Filed: 07/29/2022 1:46 PM [...] for suicidal ideas. The patient is nervous/anxious. [facility] 07-29-2022 Note HNO ID: [id number] Author: Deloris Troy MD Service: ? Author Type: Physician Type: Progress Notes Filed: 07/29/2022 1:46 PM Note Text: [facility] Today's Date: 07/29/2022 Last Visit: 06/03/2022 [...] [facility]. Current Status: INTAKE PAIN ASSESSMENT 06/03/2022 07/29/2022 [...] providers 07/29/2022 by Deloris Troy MD Percocet 5/325, #20 (04/09/2022) Allergies: ALLERGIES Allergen Reactions Fentanyl Other: See Comments PATCH ONLY. Respiratory distress due to rapid absorption. Chantix [Vareniclin* Intolerance hallucinations Data Reviewed: Reviewed personally on today's date Relevant Imaging: MRI Spine Report MRI LUMBAR SPINE WO IVCON Exam End: 06/05/2021 10:57 AM (Final result) Narrative: * * *Final Report* * * DATE OF EXAM: Jun 05 2021 10:50AM [facility] 0303 - MRI LUMBAR SPINE WO [...] This information is taken directly from the recorder of deeds system. TECHNIQUE: Routine lumbosacral spine MR protocol [...] scoliotic curvature convex left visible on the manager mutual fund. Herman at L4-L5. Mild straightening of usual lumbar lordosis and slightly kyphotic alignment at the level of L1 related to minimal old anterior wedging morphology of L1. Bone marrow signal/fracture: Advanced endplate degenerative change at L1-L2 through the L4-L5 level. Type I endplate changes, which may contribute to mechanical back pain. Multilevel endplate irregularities which have (more content not included)... [facility] 07-21-2022 Miscellaneous Notes Fax written and sent to Lynda. Please advise Lynda Mcgraw may d/c O2. Thanks, Faustino Palomares PA-C documented in this encounter [facility] 07-16-2022 Miscellaneous Notes Last Office Visit: 05/14/2022 [...] Last Labs: 05/07/2022 documented in this encounter [facility] 07-14-2022 Miscellaneous Notes Patient has been identified [...] 65.8 kg (145 lb) Thank you. Fadumo Romero, RN documented in this encounter [facility] 06-24-2022 Miscellaneous Notes Patient contacted Nurse Triage and was advised by them to immediately go the ER for evaluation. Nita Gabriel LPN June 24, 2022 10:59 AM Agree, patient needs to have ER evaluation s/p fall. Thank you, Shira Kam APRN.ALYSSA Spoke with patient and informed them of [...] Please update patient. Thank you, Shira Kam APRN.FITTER / WELDER Patient pharmacy called Baclofen directions does not match quantity patient will only have a 15 day supply with directions on the script, please advise. documented in this encounter [facility] 06-24-2022 Miscellaneous Notes Patient call in for [...] left leg are bad Protocols used: Hip [id number] documented in this encounter [facility] 06-18-2022 Miscellaneous Notes Correct this was completed yesterday and the order was faxed. I think this was done. Thanks, Faustino Palomares PA-C Pt called in and reports she gets her incontinence supplies through [facility]. The phone number for them is [phone] fax # [phone]. She states they told her she needs [...] the providers office. documented in this encounter [facility] 06-18-2022 Miscellaneous Notes Opened in error. Fadumo Romero RN documented in this encounter [facility] 06-18-2022 Miscellaneous Notes [facility] Telephone Medication Refill Request Name/dose: Baclofen 10mg tablet Amount dispensed monthly: 60 Date last filled: 05/31/2022 Date last seen in office: 06/03/2022 Provider: Shira Kam Next scheduled visit: 07/05/2022 Pharmacy: [facility] [id number] [place] [address] - [phone] [phone] Nita Gabriel LPN June 18, 2022 11:10 AM documented in this encounter [facility] 06-16-2022 History of Present illness Narrative Pt arrived to [address] [place] [address] for Physical Therapy appointment. It was determined that the patient and the patient's referring provider were wanting a course of aquatic therapy for the patient's back pain. There is no aquatic therapy provided at this location, and so the patient was directed to [facility]. This PT printed off the patient's PT order and handed it to her. The patient then left the PT department. James Cole PT documented in this encounter [facility] 06-16-2022 Miscellaneous Notes Waiting to hear from [...] send order to. documented in this encounter [facility] 06-03-2022 Miscellaneous Notes Sent in consult to physical therapy, confirmation number is [id number] documented in this encounter [facility] 06-03-2022 Note HNO ID: [id number] Author: Shira Kam APRN.FITTER / WELDER Service: ? Author Type: Nurse Practitioner Type: Progress Notes Filed: 06/03/2022 11:49 AM Note Text: [facility] Today's Date: 06/03/2022 Last Visit: Name: [...] from several providers 06/03/2022 by Shira Kam APRN.FITTER / WELDER Allergies: ALLERGIES Allergen Reactions Fentanyl Other: See [...] This information is taken directly from the recorder of deeds system. TECHNIQUE: Routine lumbosacral spine MR protocol [...] scoliotic curvature convex left visible on the manager mutual fund. Herman at L4-L5. Mild straightening of usual lumbar [...] impingement of the distal cord within the qtlpl-lr-orka. Paraspinal soft tissues: As above. No paraspinal masses are evident. Lower thoracic spine: Canal and foramina are normally patent at T11-T12. Facet degenerative changes are present at this level, but no significant impact on canal or foraminal patenc (more content not included)... [facility] 06-03-2022 Note HNO ID: [id number] Author: Shruthi Keita MA Service: ? Author Type: Strawhat Inspector And Packer Type: Progress Notes Filed: 06/03/2022 11:49 AM [...] for suicidal ideas. The patient is nervous/anxious. [facility] 06-03-2022 Miscellaneous Notes 1.Are you diabetic [...] vaccine.) Noy Mcintosh documented in this encounter [facility] 06-03-2022 Instructions Shira Kam APRN.ALYSSA - 06/03/2022 11:32 AM EST Activity as tolerated Use Ice and/or heat as tolerated as needed documented in this encounter [facility] 06-03-2022 History of Present illness Narrative Images from the original note were not included. [facility] Today's Date: 06/03/2022 Last Visit: Name: [...] from several providers 06/03/2022 by Shira Kam APRN.FITTER / WELDER Allergies: ALLERGIES Allergen Reactions Fentanyl Other: See Comments PATCH ONLY. Respiratory distress due to rapid absorption. Chantix [Vareniclin* Intolerance hallucinations Data Reviewed: Reviewed personally on today's date 06/03/2022 Relevant Imaging: MRI Spine Report MRI LUMBAR SPINE WO IVCON Exam End: 06/05/2021 10:57 AM (Final result) Narrative: * * *Final Report* * * DATE OF EXAM: Jun 05 2021 10:50AM [facility] 0303 - MRI LUMBAR SPINE WO IVCON [...] This information is taken directly from the recorder of deeds system. TECHNIQUE: Routine lumbosacral spine MR protocol [...] scoliotic curvature convex left visible on the manager mutual fund. Herman at L4-L5. Mild straightening of usual lumbar [...] impingement of the distal cord within the tuphs-sh-jkrc. Paraspinal soft tissues: As above. No paraspinal [...] annulus, and facet degenerative change contributes to nnwy-zh-iwyeoguq right foraminal narrowing. L4-L5: Disk bulging, loss [...] and assume there are 5 lumbar-type vertebrae. Field Clerk: PSCB Transcribe Date/Time: Jun 05 2021 11:26A Dictated [...] and an alternative NSAID, she declined [facility]: Physical Therapy (Aquatic) Additional Studies: Referrals: Additional: [...] decision making from today's date. Shira Kam APRN.FITTER / WELDER Pain Management [facility] Review of Systems Constitutional: Negative for activity [...] patient is nervous/anxious. documented in this encounter [facility] 05-31-2022 Miscellaneous Notes Spoke with pt and [...] Faustino Palomares PA-C documented in this encounter [facility] 05-26-2022 Miscellaneous Notes Patient requesting to have probiotic sent to pharmacy. Patient was told that insurance my not cover. ----- Message from Jenifer Yeager APRN.CNM sent at 05/26/2022 12:46 PM EST ----- Please notify patient she is positive for BV. Will treat with metronidazole gel at for 5 nights. If symptoms return in 4 weeks to come back for retesting. Probiotic by mouth once daily for 30 days. 1) No alcohol during treatment and for 24 hours after last dose. 2) No intercourse during treatment. 3) Probiotic by mouth once daily for 30 days or as needed. 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 History Comments: Sexual Activity: Not Currently; No [...] care 05/15/2020 HOSPITAL/ER FOLLOW UP Which facility: [facility] Dates of visit: 05/10-05/13/2020 Preadmission evaluation: ER [...] 05/01/2021 Date of discharge: Facility: [facility] 05/01/2021 presented to the emergency room with [...] external genitalia normal, normal Bartholin's glands, urethra, [place]'s glands, no vulvar lesions, no cervical lesions, [...] Jenifer Yeager APRN.CNM documented in this encounter [facility] 05-21-2022 Miscellaneous Notes Patient has been identified [...] Fadumo Romero RN documented in this encounter [facility] 05-20-2022 Miscellaneous Notes Patient has visit tomorrow with MUSEUM PREPARATOR she is going to take her cuff with her tomorrow. After they take her BP she is going to use her cuff to check. She will then let us know if she needs a new cuff. Please schedule [place] BP this week with home cuff to verify. Thanks, Faustino Palomares PA-C Patient returns call and reports that [...] if reading correctly. 137/syst is not concerning. Thanks, Faustino Palomares PA-C Patient reports she was taken off of lisinopril b/c her BP was too low 76/58. She is feeling fine. Her home BP machine is giving her either really high readings 108/186 or normal readings 137/something. States her home monitor is not working right b/c she is feeling fine. Asking pcp to send order to [facility] for a new BP monitor. documented in this encounter [facility] 05-14-2022 History of Present illness Narrative 52 year old female with c/o hospital follow up 05/05/2022 patient called [facility], transported to [facility] with lightheadedness and multiple syncopal episodes one [...] care 05/15/2020 HOSPITAL/ER FOLLOW UP Which facility: [facility] Dates of visit: 05/10-05/13/2020 Preadmission evaluation: ER [...] 05/01/2021 Date of discharge: Facility: [facility] 05/01/2021 presented to the emergency room with acute alcohol intoxication, initial alcohol level 7-8. Acknowledges over the last 5 months drinking 15 packs a day at 8% alcohol (marcin samaniego). Vital signs 96.6 F-78-18-111/73-98%. Appearance was no acute distress. WBC 7.9-Hgb 13.8-HCT 39 GERD (gastroesophageal reflux disease) Hyperglycemia Hypertension Lung abscess (HCC) saw Néstor Li and Signs. Major depression Mild protein-calorie malnutrition (HCC) 08/26/2020 Obesity PE (pulmonary thromboembolism) ([facility]) PTSD (post-traumatic stress disorder) Snoring Tobacco use [...] months. Educated on lung nodule recurrence in [place]. - CT CHEST WO IVCON 3. Syncope, [...] Jaimee Palomares PA-C documented in this encounter [facility] 05-11-2022 Miscellaneous Notes TC to patient who [...] Memo Leahy MD documented in this encounter [facility] 05-07-2022 History of Present illness Narrative NEW [...] year. When asked of prior head trauma, fell off a 2 story balcony when [...] anxiety and hearing voices. Pt was in [facility] ER yesterday due to syncope, hypotension and [...] recall: 10/22 Naming intact: 08/20 Number repeat: / (fwd and bkwd) Sentence repeat: 07/22 Serial 7s: [id number] 08/20 Similar objects: 07/22 Orientation: May 07, 2022, Mirna Pierre [place] 11/23 Delayed recall: 10/22 Clock Drawin/3 Cube [...] care 05/15/2020 HOSPITAL/ER FOLLOW UP Which facility: [facility] Dates of visit: 05/10-05/13/2020 Preadmission evaluation: ER [...] 05/01/2021 Date of discharge: Facility: [facility] 05/01/2021 presented to the emergency room with [...] malnutrition (HCC) 08/26/2020 Obesity PE (pulmonary thromboembolism) ([facility]) PTSD (post-traumatic stress disorder) Snoring Tobacco use [...] which included preparing to see the patient, bbia-el-ufyx patient care, completing clinical documentation, obtaining and/or reviewing separately obtained history, performing a medically appropriate examination, counseling and educating the patient/family/caregiver, ordering medications, tests, or procedures, independently interpreting results (not separately reported), and communicating results to the patient/family/caregiver. documented in this encounter [facility] 05-07-2022 Miscellaneous Notes Patient called in leaving a voicemail asking for a call back. Nothing was stated what it was about. Sheila Granado documented in this encounter [facility] 04-23-2022 Miscellaneous Notes Patient has been identified [...] Maribell Baltazar LPN documented in this encounter [facility] 04-19-2022 Miscellaneous Notes Pt calls to report she takes 2-3 ibuprofen 800 tabs daily but only gets prescribed #30 rf 1 so pt runs out of medication quickly. Pt reports she did not get any ibuprofen in this month's delivery from [place] and was advised that she needed a [...] Zoraida Garcia LPN documented in this encounter [facility] 04-01-2022 Instructions M Cici Palomares PA-C - 04/01/2022 9:37 AM EDT Desvenlafaxine: Patient drug information Access [employer] Online for additional drug information, tools, and databases. Copyright 9819-7514 [employer]. All rights reserved. (For additional information see [...] much, and when it happened. Last Reviewed [id number] Consumer Information Use and Disclaimer This information [...] of this information is governed by the [employer] End User License Agreement, available at https://www.Gridcentric.[employer]/en/ solutions/SkillsTrak/about/garcia. 2020 [employer] and its affiliates and/or licensors. All rights reserved. Use of [employer] is subject to the Subscription and License Agreement. Topic 88959 Version 147.0 documented in this encounter [facility] 04-01-2022 History of Present illness Narrative 52 [...] care 05/15/2020 HOSPITAL/ER FOLLOW UP Which facility: [facility] Dates of visit: 05/10-05/13/2020 Preadmission evaluation: ER [...] 05/01/2021 Date of discharge: Facility: [facility] 05/01/2021 presented to the emergency room with [...] Jaimee Palomares PA-C documented in this encounter [facility] 03-26-2022 Miscellaneous Notes Refill approved. Has appointment in April. Deloris Troy III, [place], [place] [facility] Telephone Medication Refill Request Name/dose: BACLOFEN 10 Amount dispensed monthly: 60 Date last filled: 01/01/22 Date last seen in office: 04/16/2021 Provider: Deloris Troy MD Next scheduled visit: 05/06/22 Pharmacy: [facility] - [address] [place] [address] - [address] [phone] [place] [address] Odalys Brizuela MA documented in this encounter [facility] 03-25-2022 Miscellaneous Notes Patient arrived 17 minutes [...] which was the first available at the [place] office. documented in this encounter [facility] 03-17-2022 History of Present illness Narrative KARINA [...] care 05/15/2020 HOSPITAL/ER FOLLOW UP Which facility: [facility] Dates of visit: 05/10-05/13/2020 Preadmission evaluation: ER [...] 05/01/2021 Date of discharge: Facility: [facility] 05/01/2021 presented to the emergency room with [...] TIME: 11:11 AM documented in this encounter [facility] 03-15-2022 Miscellaneous Notes Pharmacy calls in requesting the following refill(s): Requested Prescriptions Pending Prescriptions Disp Refills ibuprofen (MOTRIN) 800 mg tablet 30 tablet 1 Sig: Take 1 tablet by mouth every 8 hours as needed for pain. Take with food. documented in this encounter [facility] 03-11-2022 Miscellaneous Notes Patient approved for Hep C treatment through medicaid, will ship from [facility]. Patient to call when receives medication in hand to review treatment protocol and follow up labs. Requested Prescriptions Pending Prescriptions Disp Refills sofosbuvir-velpatasvir 400-100 mg 28 tablet 2 Sig: Take one tablet by mouth, with or without food, once daily same time of day Bharti Sherman CMA documented in this encounter [facility] 02-26-2022 Miscellaneous Notes Patient has been identified [...] Jaimee Foster RN documented in this encounter [facility] 02-25-2022 History of Present illness Narrative 51 year old female with c/o low BP, dizziness which start Tuesday. 17 minutes late for appointment. 02/24/2022 transforaminal injection L5-S1 bilateral Dr. Troy. Was dizzy with low BP but had procedure anyway. Stumbled in their office but didn't pass out. Was NPO after midnight. Sent from their office to the emergency department 02/24/2022 arrived at [facility] emergency department with complaint of hypertension, lightheadedness [...] care 05/15/2020 HOSPITAL/ER FOLLOW UP Which facility: [facility] Dates of visit: 05/10-05/13/2020 Preadmission evaluation: ER [...] 05/01/2021 Date of discharge: Facility: [facility] 05/01/2021 presented to the emergency room with [...] malnutrition (HCC) 08/26/2020 Obesity PE (pulmonary thromboembolism) ([facility]) PTSD (post-traumatic stress disorder) Snoring Tobacco use [...] Received no reply to staff message to silicator Dr. Josué Blevins: We will have appointment [...] Jaimee Palomares PA-C documented in this encounter [facility] 02-24-2022 Miscellaneous Notes Notified pt of message below. Left appt as scheduled with Faustino at current time. Will route to Faustino to notify him of what's going on. Liliana London Ma I would go today to er Patient calling to say she had spinal injection done at [facility] today and her blood pressure [...] Laina Orellana RN documented in this encounter [facility] 02-24-2022 Nurse Note Patient advised to notify [...] is eating crackers. documented in this encounter [facility] 02-24-2022 Miscellaneous Notes OPERATIVE/PROCEDURE REPORT LOG ID: [id number] SURGERY/PROCEDURE DATE: 02/24/2022 INCISION/PROCEDURE START TIME: 10:05 AM INCISION CLOSE/PROCEDURE END TIME: 10:19 AM SURGEON(S)/PROCEDURALIST(S) AND PANEL MACHINE SETTER(S): Surgeon(s) and Role: * Deloris Troy MD [...] TIME: 10:21 AM documented in this encounter [facility] 02-24-2022 History and physical note UPDATED HISTORY [...] SIGNATURE: Deloris Troy MD PATIENT NAME: Mariluz Christine Jose DATE: February 24, 2022 TIME: 9:46 AM documented in this encounter [facility] 02-23-2022 Miscellaneous Notes I have attempted to contact this patient by phone, Left brief message on cell voicemail stating to give us a call back at [phone] Laura Pena documented in this encounter [facility] 02-17-2022 Miscellaneous Notes Order signed by Dr. Huber and faxed back to [facility] [place]. Suzie Powell documented in this encounter [facility] 02-11-2022 History of Present illness Narrative 51 year old female with c/o here for medication follow up. 01/01/2022 tripped and fell landing on her outstretched right wrist, with deformity she went to [facility] ED where x-rays confirmed fracture right distal radius Palomares's fracture with comminuted intra-articular distal radial fracture and angulated fragment, wrist was reduced under anesthesia. She was splinted and referred to [place] [facility] Dr. Prasanth Jones. Started rehab tomorrow [...] 6 - 29 U/L 16 Reference ID [id number] Footnote SEE NOTE Component Latest Ref Rng [...] Centrilobular emphysema (hcc) Pe (pulmonary thromboembolism) (hcc) Pelletizer Operator: Susu . Interval history: no recent testing [...] Hair falling out Sees Dr. Renata Turner [facility] Stress incontinence Current medications: Bacterial vaginosis Not [...] Drug use 08/15/2018 ecstacy Emphysema of lung ([facility]) Encounter for support and coordination of transition of care 05/15/2020 HOSPITAL/ER FOLLOW UP Which facility: [facility] Dates of visit: 05/10-05/13/2020 Preadmission evaluation: ER [...] 05/01/2021 Date of discharge: Facility: [facility] 05/01/2021 presented to the emergency room with acute alcohol intoxication, initial alcohol level 7-8. Acknowledges over the last 5 months drinking 15 packs a day at 8% alcohol (natty daddy). Vital signs 96.6 F-78-18-111/73-98%. Appearance was no acute distress. WBC 7.9-Hgb 13.8-HCT 39 GERD (gastroesophageal reflux disease) Hyperglycemia Hypertension Lung abscess ([facility]) saw Néstor Li and Dr. Zarate. Major depression Mild protein-calorie malnutrition (HCC) 08/26/2020 Obesity PE (pulmonary thromboembolism) ([facility]) PTSD (post-traumatic stress disorder) Snoring Tobacco use [...] (HCC) - ICD9: 297.1, ICD10: F22 Sees [facility], stable- stopped latuda, has follow up - CBC + DIFF - COMP METABOLIC PANEL - TSH BLD 16. Stress incontinence - ICD9: [id number], ICD10: N39.3 Oxybutynin did not help. Discussed [...] Jaimee Palomares PA-C documented in this encounter [facility] 02-05-2022 Instructions Abi Davey PA-C - 02/05/2022 [...] types of injections. documented in this encounter [facility] 02-05-2022 History of Present illness Narrative AMBULATORY [...] or double vision) Respiratory: Negative (No Cough, Raxtdvkho-ux-hgratw, Dyspnea on exertion, wheezing) Cardiovascular: Negative (No [...] candidate for these types of injections. Abi aDvey PA-C ([place]) [facility] documented in this encounter [facility] 01-29-2022 Miscellaneous Notes Patient has been identified [...] Maribell Baltazar LPN documented in this encounter [facility] 01-29-2022 Miscellaneous Notes Patient call and LVM stated she missed her appt on 01/[address] Troy and needs to reschedule. I have attempted to contact this patient by phone, Left brief message on cell voicemail stating to call back to reschedule. Cris Lopez School Photographer to Dr. Roy, Dr. Palma, Workers Compensation [facility] P: [id number] / F: [phone] / documented in this encounter [facility] 01-27-2022 Instructions Abi Davey PA-C - 01/27/2022 [...] types of injections. documented in this encounter [facility] 01-27-2022 History of Present illness Narrative AMBULATORY [...] or double vision) Respiratory: Negative (No Cough, Vfcvbveqq-yy-breeju, Dyspnea on exertion, wheezing) Cardiovascular: Negative (No [...] ([place]) [facility] documented in this encounter [facility] 01-18-2022 History of Present illness Narrative Mariluz [...] external genitalia normal, normal Bartholin's glands, urethra, [place]'s glands, no vulvar lesions, good vaginal support, [...] 4 - Moderate documented in this encounter [facility] 01-04-2022 Miscellaneous Notes Please change her to in person with a provider. She has not been physically seen since august for a procedure. If she needs more norco she needs a NAOIC and uds Denice Gr APRN.CNP I can call in 7 days of [...] virtual appointment tomorrow. PDMP reviewed, had 10 [place] on 01/01. Will write 28 [place] , must last a full 7 days. [...] advise. Laura Pena documented in this encounter [facility] 01-04-2022 Miscellaneous Notes Called patient to inform her, mailed her the numbers for the other home health agencies per her request Please let the pt know Denice Gr APRN.CNP Thank you for the referral of your patient to [facility]. At this time, we are unable to accommodate your patient s needs in a safe and timely fashion. In order to help your patient receive quality home care, we have included reputable agencies that service this area: [address] or [phone]. OR [facility] Phone Jen Please contact these agencies and they will work with your patient to arrange timely services. documented in this encounter [facility] 12-25-2021 Miscellaneous Notes I scanned fibroscan results from [facility] today for you to review. Emma Torres Fibroscan reviewed. F2S2 Bharti - can you check on the Hep C treatment status? Josué Blevins MD documented in this encounter [facility] 12-15-2021 Instructions Blaine Ann MD - 12/15/2021 8:47 AM EDT It was great to see you today! You have urge and stress incontinence. Lets try a bladder relaxant and Kegel exercises. I want you to see Dorothy in 6 weeks to see how things stand. documented in this encounter [facility] 12-15-2021 History of Present illness Narrative Images from the original note were not included. [facility] NEW PATIENT ENCOUNTER HISTORY OF PRESENT ILLNESS: [...] care 05/15/2020 HOSPITAL/ER FOLLOW UP Which facility: [facility] Dates of visit: 05/10-05/13/2020 Preadmission evaluation: ER [...] 05/01/2021 Date of discharge: Facility: [facility] 05/01/2021 presented to the emergency room with acute alcohol intoxication, initial alcohol level 7-8. Acknowledges over the last 5 months drinking 15 packs a day at 8% alcohol (joseaidan samaniego). Vital signs 96.6 F-78-18-111/73-98%. Appearance was [...] by contextual derivation. documented in this encounter [facility] 12-10-2021 Miscellaneous Notes Patient has been identified [...] (185 lb) Please advise. Thank you. Fadumo Romero, RN documented in this encounter [facility] 12-10-2021 Miscellaneous Notes 1.Are you diabetic No [...] vaccine.) Jenifer Sherman documented in this encounter [facility] 12-09-2021 Miscellaneous Notes Please see below regarding home care Denice Gr APRN.FITTER / WELDER Thank you for the referral of your patient to [facility]. At this time, we are at capacity and are unable to accept your patient. In order to help your patient receive quality home care, we have included reputable agencies that service this area: [facility] [phone] or [facility] [phone]. Please contact this agency and they will work with your patient to arrange timely services. Thank you, SHERLEY Castorena 12/09/2021 3:03 PM documented in this encounter [facility] 12-09-2021 Instructions Denice Gr APRN.ALYSSA - 12/09/2021 2:51 PM EDT Ice and heat as tolerated Activity as tolerated documented in this encounter [facility] 12-07-2021 History of Present illness Narrative AMBULATORY TELEPHONE VISIT Mariluz Garcia has consented to this telephone encounter. Persons [...] and assume there are 5 lumbar-type vertebrae. Field Clerk: PSCB Transcribe Date/Time: Jun 05 2021 11:26A Dictated by : GITA MALHOTRA MD This examination was interpreted and the report reviewed and electronically signed by: GITA MALHOTRA MD on Jun 05 2021 11:36AM EST Results-Findings * * *Final Report* * * DATE OF EXAM: Jun 05 2021 10:50AM [facility] [id number] - MRI LUMBAR SPINE WO [...] This information is taken directly from the recorder of deeds system. TECHNIQUE: Routine lumbosacral spine MR protocol [...] scoliotic curvature convex left visible on the manager mutual fund. Herman at L4-L5. Mild straightening of usual lumbar [...] impingement of the distal cord within the qgymk-kf-evim. Paraspinal soft tissues: As above. No paraspinal [...] annulus, and facet degenerative change contributes to ubir-em-weqfzhoe right foraminal narrowing. L4-L5: Disk bulging, loss [...] Impression IMPRESSION: Spondylosis of the cervical spine. Field Clerk: [employer] Transcribe Date/Time: Nov 12 2021 4:07P Dictated [...] Total Time Spent: 15 minutes Denice Gr APRN.FITTER / WELDER documented in this encounter [facility] 12-07-2021 Miscellaneous Notes Spoke with Mariluz, gave her the number to schedule her fibroscan at [facility], and let her know she can get her labs done at the [facility] for Hep C meds. Bharti Sherman CMA documented in this encounter [facility] 11-27-2021 Nurse Note Pt states readines for discharge. Dr. Blevins at bedside speaking with mario. documented in this encounter [facility] 11-27-2021 History and physical note HISTORY AND [...] Josué Blevins MD documented in this encounter [facility] 11-23-2021 Miscellaneous Notes Faxed over fibroscan to [facility]. Asked for them to contact patient directly to get scheduled. Sydney Bowens documented in this encounter [facility] 11-23-2021 Instructions Josué Blevins MD - 11/23/2021 [...] If you do not have a responsible special events driver (family member or friend) with you [...] exam. 2 05/2019 documented in this encounter [facility] 11-23-2021 History of Present illness Narrative CHIEF COMPLAINT: Patient presents with: Chronic Hep C: Labs 11/12/21 This consult was requested by Jaimee Palomares PA-C for an opinion regarding hepatitis C. My final recommendations will be communicated to the requesting health care provider by way of the shared medical record for internal providers or letter via the [employer] for external providers. HPI: Mariluz [...] 8 years, says one of them in [place]. Had blood transfusion few years ago for [...] care 05/15/2020 HOSPITAL/ER FOLLOW UP Which facility: [facility] Dates of visit: 05/10-05/13/2020 Preadmission evaluation: ER [...] 05/01/2021 Date of discharge: Facility: [facility] 05/01/2021 presented to the emergency room with [...] Jaimee Palomares PA-C documented in this encounter [facility] 11-12-2021 Instructions Jaimee Palomares PA-C - 11/12/2021 [...] holding your breath. documented in this encounter [facility] 11-12-2021 History of Present illness Narrative 51 year old female with c/o follow up Was in ER last month: 10/12/2021 presented [facility] emergency room with complaint of chest pain via EMS. Worsening over 4 days, sharp, left-sided, worse with overhead movement and certain arm movements as well as taking deep breath. Physical exam: Vital signs 98.6 F-81-14-150/103-97% RA. Described as well-nourished and developed, no acute distress, chest wall negative for tenderness. Lab: CBC within normal limits except Hgb 15.7, lymph percent 15.9, [place] 14.0, eos 5.3. D-dimer elevated at 0.68. Chemistry profile within normal limits. Troponin 1 within normal limits at 4. Chest x-ray: No acute findings. Chest CTA: No evidence of pulmonary embolus, positive for pulmonary emphysema. EKG: Normal sinus rhythm ventricular rate 78, no ischemic changes. Patient discharged on prednisone 60 mg daily x5 days, naproxen 500 mg p.o. twice daily. Moved to [place] from [facility]. Current concerns: Hips are bothering [...] Benztropine 0.5 mg daily at bedtime Psychiatry LICENSED AUDIOLOGIST [facility]. Feels stable overall PHQ-9 09/26/2018 02/13/2019 [...] care 05/15/2020 HOSPITAL/ER FOLLOW UP Which facility: [facility] Dates of visit: 05/10-05/13/2020 Preadmission evaluation: ER [...] 05/01/2021 Date of discharge: Facility: [facility] 05/01/2021 presented to the emergency room with [...] Zarate. Major depression Obesity PE (pulmonary thromboembolism) ([facility]) PTSD (post-traumatic stress disorder) Snoring Tobacco use [...] Chronic Bronchitis (Hcc) Positive Urine Drug Screen Mild Protein-Calorie Malnutrition (Hcc) Lumbar Spondylosis Cervical Spondylosis Without Myelopathy Other [...] with x-rays. 8. Stress incontinence - ICD9: [id number], ICD10: N39.3 - CONSULT TO PHYSICAL THERAPY [...] vaccine - ICD9: V04.89, ICD10: Z23 - [employer] COVID-19 VACCINE, AGE 12+ YR (PURPLE TOP) 12. Screening for colon cancer - ICD9: V76.51, ICD10: Z12.11 - CONSULT TO GENERAL SURGERY Follow-up 6 months and as needed. Jaimee Palomares PA-C documented in this encounter [facility] 11-06-2021 Miscellaneous Notes Schedulers please assist pt [...] NATALIO: No Authorizing Provider: Jaimee PALOMARES PA-C [facility] 07/23/21 NOV no upcoming appt Patient has been identified [...] pharmacy. No need to notify patient. Laisha Ayana Pss documented in this encounter [facility] 11-06-2021 Miscellaneous Notes [facility] 07/23/21 NOV no upcoming appt Patient has been identified [...] patient. Laisha Castañeda documented in this encounter [facility] 10-23-2021 Miscellaneous Notes Thanks for the update. Baclofen for 90 days sent to pharmacy (including refills), she will need follow-up prior to next script. Deloris Troy III, MD, [facility] Telephone Medication Refill Request Name/dose: Baclofen [...] advise. Jenifer Sherman documented in this encounter [facility] 10-21-2021 Miscellaneous Notes No Show Documentation Mariluz Garcia no showed for an appointment on 10/21/21 with Denice Gr APRN.FITTER / WELDER at 7:45. She was scheduled for follow [...] 2021 4:31 PM documented in this encounter [facility] 10-12-2021 Miscellaneous Notes Protocol recommends call 911 [...] 11. : Pt denies. Protocols used: CHEST [id number] documented in this encounter [facility] 10-07-2021 Miscellaneous Notes Received and placed on providers desk to sign. We did not get all forms with the first fax. [facility] calling to say they are faxing CMN to PCP office to be completed for order for Adult Diapers/Pads. Laina Orellana RN documented in this encounter [facility] 10-05-2021 Miscellaneous Notes Pt. Previously scheduled 11/10. Will close TE at this time. Please schedule: Telephone on 10/04/21 [facility]IL[facility] DIAGNOSTIC BILAT US BREAST LTD LT US BREAST LTD RT Thanks, Faustino Palomares PA-C documented in this encounter [facility] 10-02-2021 Miscellaneous Notes Patient was notified and [...] call to patient.. documented in this encounter [facility] 10-01-2021 Miscellaneous Notes October 01, 2021 PID: [id number] Mariluz Garcia [address] [address] Dear Ms. Garcia, Your recent breast imaging exam on 10/01/2021 showed a possible finding that requires additional imaging studies for a complete evaluation. Most such findings are probably benign (not cancer). If you have a healthcare provider who ordered/prescribed your screening mammogram: Please call [phone] or [phone] to schedule an appointment for your additional [...] and reports are kept on file at [facility] as part of your permanent medical record, and are available for your continuing care. Thank you for allowing us to help in meeting your health care needs. Sincerely, Dr. Loredo Interpreting Radiologist [facility] (Additional imaging) documented in this encounter [facility] 10-01-2021 History of Present illness Narrative Radiology [...] 2021 12:44 PM documented in this encounter [facility] 09-21-2021 Miscellaneous Notes Please advise insurance covers symbicort, similar to Breo The following approved medication requests have been transmitted electronically. Signed Prescriptions Disp Refills budesonide-formoterol (SYMBICORT) 160-4.5 mcg/actuation inhaler 1 Each 5 Sig: Inhale 2 Puffs as instructed twice daily. Authorizing Provider: Jaimee PALOMARES PA-C [facility] calling to state patient's Breo Ellipta is needing a pre-auth. Pharmacy states either symbicort or Dulera is covered by patient's insurance if provider would like to switch. Please advise [facility] at [phone]. Thank you. documented in this encounter [facility] 09-11-2021 Miscellaneous Notes Patient has been identified by name and date of : Yes Pending Prescriptions Disp Refills CHOLECALCIFEROL (VITAMIN D3) 25 MCG (1,000 UNIT) CAPSULE 90 capsule 1 Sig: Take 1 capsule by mouth once daily. NATALIO: No [facility]-07/23/21 Labs-01/16/21 NOV-none RX INSTRUCTIONS: Pharmacy initiated this request. No need to notify patient. Stephany Bowser Pss documented in this encounter [facility] 07-17-2021 Miscellaneous Notes Sw spoke with patient in regarding patient needs. Patient reports that she can use a supervisor home energy consultant. Patient reports that she has back pain and is unable to stand for long periods of time. Needs assistance with cooking, cleaning, grooming. Sw briefly discussed [facility]. Patient notes that she had supervisor home energy consultant in the past. The end and [...] mail her number. Sw will mail patient [facility] application with contact number. Called Pt and let her know that Stephany from [facility] had informed us that she had recently [...] need for help in the future. Stephany JAVIERmolded rubber goods cutter Care Sal from [facility] called in and reports Pt had been in [facility] 04/30/22-05/02/22. Then she went to the [address] [place] [phone] from 05/03/22-07/02/21 for a substance use disorder [...] provider was 01/17/12 documented in this encounter [facility] documented as of this encounter (statuses as of 09/11/2021) [facility] History of Past illness Narrative* Problem Noted Date Resolved Date Encounter for support and coordination of transi tion of care 05/02/2021 07/23/2021 Overview: Hospital discharge summary: Date of admission 05/01/2021 Date of discharge: Facility: [facility] 05/01/2021 presented to the emergency room with [...] 05/02/2021 Overview: HOSPITAL/ER FOLLOW UP Which facility: [facility] Dates of visit: 05/10-05/13/2020 Preadmission evaluation: ER [...] of this encounter (statuses as of 09/21/2021) [facility] History of Past illness Narrative* Problem Noted Date Resolved Date Encounter for support and coordination of transi tion of care 05/02/2021 07/23/2021 Overview: Hospital discharge summary: Date of admission 05/01/2021 Date of discharge: Facility: [facility] 05/01/2021 presented to the emergency room with [...] 05/02/2021 Overview: HOSPITAL/ER FOLLOW UP Which facility: [facility] Dates of visit: 05/10-05/13/2020 Preadmission evaluation: ER [...] of this encounter (statuses as of 09/22/2021) [facility]13-[facility]21 History of Past illness Narrative* Problem Noted Date Resolved Date Encounter for support and coordination of transi tion of care 05/02/2021 07/23/2021 Overview: Hospital discharge summary: Date of admission 05/01/2021 Date of discharge: Facility: [facility] 05/01/2021 presented to the emergency room with [...] 05/02/2021 Overview: HOSPITAL/ER FOLLOW UP Which facility: [facility] Dates of visit: 05/10-05/13/2020 Preadmission evaluation: ER [...] of this encounter (statuses as of 10/02/2021) [facility]21 History of Past illness Narrative* Problem Noted Date Resolved Date Encounter for support and coordination of transi tion of care 05/02/2021 07/23/2021 Overview: Hospital discharge summary: Date of admission 05/01/2021 Date of discharge: Facility: [facility] 05/01/2021 presented to the emergency room with [...] 05/02/2021 Overview: HOSPITAL/ER FOLLOW UP Which facility: [facility] Dates of visit: 05/10-05/13/2020 Preadmission evaluation: ER [...] of this encounter (statuses as of 10/02/2021) [facility] History of Past illness Narrative* Problem Noted Date Resolved Date Encounter for support and coordination of transi tion of care 05/02/2021 07/23/2021 Overview: Hospital discharge summary: Date of admission 05/01/2021 Date of discharge: Facility: [facility] 05/01/2021 presented to the emergency room with [...] 05/02/2021 Overview: HOSPITAL/ER FOLLOW UP Which facility: [facility] Dates of visit: 05/10-05/13/2020 Preadmission evaluation: ER [...] of this encounter (statuses as of 10/03/2021) [facility] History of Past illness Narrative* Problem Noted Date Resolved Date Encounter for support and coordination of transi tion of care 05/02/2021 07/23/2021 Overview: Hospital discharge summary: Date of admission 05/01/2021 Date of discharge: Facility: [facility] 05/01/2021 presented to the emergency room with acute alcohol intoxication, initial alcohol level 7-8. Acknowledges over the last 5 months drinking 15 packs a day at 8% alcohol ([employer]). Vital signs 96.6 [id number]%. Appearance was [...] 05/02/2021 Overview: HOSPITAL/ER FOLLOW UP Which facility: [facility] Dates of visit: 05/10-05/13/2020 Preadmission evaluation: ER [...] of this encounter (statuses as of 10/05/2021) [facility] History of Past illness Narrative* Problem Noted Date Resolved Date Encounter for support and coordination of transi tion of care 05/02/2021 07/23/2021 Overview: Hospital discharge summary: Date of admission 05/01/2021 Date of discharge: Facility: [facility] 05/01/2021 presented to the emergency room with [...] 05/02/2021 Overview: HOSPITAL/ER FOLLOW UP Which facility: [facility] Dates of visit: 05/10-05/13/2020 Preadmission evaluation: ER [...] of this encounter (statuses as of 10/08/2021) [facility] History of Past illness Narrative* Problem Noted Date Resolved Date Encounter for support and coordination of transi tion of care 05/02/2021 07/23/2021 Overview: Hospital discharge summary: Date of admission 05/01/2021 Date of discharge: Facility: [facility] 05/01/2021 presented to the emergency room with [...] 05/02/2021 Overview: HOSPITAL/ER FOLLOW UP Which facility: [facility] Dates of visit: 05/10-05/13/2020 Preadmission evaluation: ER [...] of this encounter (statuses as of 10/21/2021) [facility] History of Past illness Narrative* Problem Noted Date Resolved Date Encounter for support and coordination of transi tion of care 05/02/2021 07/23/2021 Overview: Hospital discharge summary: Date of admission 05/01/2021 Date of discharge: Facility: [facility] 05/01/2021 presented to the emergency room with [...] 05/02/2021 Overview: HOSPITAL/ER FOLLOW UP Which facility: [facility] Dates of visit: 05/10-05/13/2020 Preadmission evaluation: ER [...] of this encounter (statuses as of 10/21/2021) [facility] History of Past illness Narrative* Problem Noted Date Resolved Date Encounter for support and coordination of transi tion of care 05/02/2021 07/23/2021 Overview: Hospital discharge summary: Date of admission 05/01/2021 Date of discharge: Facility: [facility] 05/01/2021 presented to the emergency room with [...] 05/02/2021 Overview: HOSPITAL/ER FOLLOW UP Which facility: [facility] Dates of visit: 05/10-05/13/2020 Preadmission evaluation: ER [...] of this encounter (statuses as of 10/23/2021) [facility] History of Past illness Narrative* Problem Noted Date Resolved Date Encounter for support and coordination of transi tion of care 05/02/2021 07/23/2021 Overview: Hospital discharge summary: Date of admission 05/01/2021 Date of discharge: Facility: [facility] 05/01/2021 presented to the emergency room with [...] 05/02/2021 Overview: HOSPITAL/ER FOLLOW UP Which facility: [facility] Dates of visit: 05/10-05/13/2020 Preadmission evaluation: ER [...] of this encounter (statuses as of 11/06/2021) [facility] History of Past illness Narrative* Problem Noted Date Resolved Date Encounter for support and coordination of transi tion of care 05/02/2021 07/23/2021 Overview: Hospital discharge summary: Date of admission 05/01/2021 Date of discharge: Facility: [facility] 05/01/2021 presented to the emergency room with [...] 05/02/2021 Overview: HOSPITAL/ER FOLLOW UP Which facility: [facility] Dates of visit: 05/10-05/13/2020 Preadmission evaluation: ER [...] of this encounter (statuses as of 11/06/2021) [facility] History of Past illness Narrative* Problem Noted Date Resolved Date Encounter for support and coordination of transi tion of care 05/02/2021 07/23/2021 Overview: Hospital discharge summary: Date of admission 05/01/2021 Date of discharge: Facility: [facility] 05/01/2021 presented to the emergency room with [...] 05/02/2021 Overview: HOSPITAL/ER FOLLOW UP Which facility: [facility] Dates of visit: 05/10-05/13/2020 Preadmission evaluation: ER [...] of this encounter (statuses as of 11/11/2021) [facility] History of Past illness Narrative* Problem Noted Date Resolved Date Encounter for support and coordination of transi tion of care 05/02/2021 07/23/2021 Overview: Hospital discharge summary: Date of admission 05/01/2021 Date of discharge: Facility: [facility] 05/01/2021 presented to the emergency room with [...] 05/02/2021 Overview: HOSPITAL/ER FOLLOW UP Which facility: [facility] Dates of visit: 05/10-05/13/2020 Preadmission evaluation: ER [...] of this encounter (statuses as of 11/13/2021) [facility] History of Past illness Narrative* Problem Noted Date Resolved Date Encounter for support and coordination of transi tion of care 05/02/2021 07/23/2021 Overview: Hospital discharge summary: Date of admission 05/01/2021 Date of discharge: Facility: [facility] 05/01/2021 presented to the emergency room with [...] 05/02/2021 Overview: HOSPITAL/ER FOLLOW UP Which facility: [facility] Dates of visit: 05/10-05/13/2020 Preadmission evaluation: ER [...] of this encounter (statuses as of 11/23/2021) [facility] History of Past illness Narrative* Problem Noted Date Resolved Date Encounter for support and coordination of transi tion of care 05/02/2021 07/23/2021 Overview: Hospital discharge summary: Date of admission 05/01/2021 Date of discharge: Facility: [facility] 05/01/2021 presented to the emergency room with [...] 05/02/2021 Overview: HOSPITAL/ER FOLLOW UP Which facility: [facility] Dates of visit: 05/10-05/13/2020 Preadmission evaluation: ER [...] of this encounter (statuses as of 11/23/2021) [facility] History of Past illness Narrative* Problem Noted Date Resolved Date Encounter for support and coordination of transi tion of care 05/02/2021 07/23/2021 Overview: Hospital discharge summary: Date of admission 05/01/2021 Date of discharge: Facility: [facility] 05/01/2021 presented to the emergency room with [...] 05/02/2021 Overview: HOSPITAL/ER FOLLOW UP Which facility: [facility] Dates of visit: 05/10-05/13/2020 Preadmission evaluation: ER [...] of this encounter (statuses as of 11/26/2021) [facility] History of Past illness Narrative* Problem Noted Date Resolved Date Encounter for support and coordination of transi tion of care 05/02/2021 07/23/2021 Overview: Hospital discharge summary: Date of admission 05/01/2021 Date of discharge: Facility: [facility] 05/01/2021 presented to the emergency room with [...] 05/02/2021 Overview: HOSPITAL/ER FOLLOW UP Which facility: [facility] Dates of visit: 05/10-05/13/2020 Preadmission evaluation: ER [...] of this encounter (statuses as of 11/28/2021) [facility] History of Past illness Narrative* Problem Noted Date Resolved Date Encounter for support and coordination of transi tion of care 05/02/2021 07/23/2021 Overview: Hospital discharge summary: Date of admission 05/01/2021 Date of discharge: Facility: [facility] 05/01/2021 presented to the emergency room with [...] 05/02/2021 Overview: HOSPITAL/ER FOLLOW UP Which facility: [facility] Dates of visit: 05/10-05/13/2020 Preadmission evaluation: ER [...] of this encounter (statuses as of 12/07/2021) [facility] History of Past illness Narrative* Problem Noted Date Resolved Date Encounter for support and coordination of transi tion of care 05/02/2021 07/23/2021 Overview: Hospital discharge summary: Date of admission 05/01/2021 Date of discharge: Facility: [facility] 05/01/2021 presented to the emergency room with [...] 05/02/2021 Overview: HOSPITAL/ER FOLLOW UP Which facility: [facility] Dates of visit: 05/10-05/13/2020 Preadmission evaluation: ER [...] of this encounter (statuses as of 12/09/2021) [facility] History of Past illness Narrative* Problem Noted Date Resolved Date Encounter for support and coordination of transi tion of care 05/02/2021 07/23/2021 Overview: Hospital discharge summary: Date of admission 05/01/2021 Date of discharge: Facility: [facility] 05/01/2021 presented to the emergency room with [...] 05/02/2021 Overview: HOSPITAL/ER FOLLOW UP Which facility: [facility] Dates of visit: 05/10-05/13/2020 Preadmission evaluation: ER [...] of this encounter (statuses as of 12/09/2021) [facility] History of Past illness Narrative* Problem Noted Date Resolved Date Encounter for support and coordination of transi tion of care 05/02/2021 07/23/2021 Overview: Hospital discharge summary: Date of admission 05/01/2021 Date of discharge: Facility: [facility] 05/01/2021 presented to the emergency room with [...] 05/02/2021 Overview: HOSPITAL/ER FOLLOW UP Which facility: [facility] Dates of visit: 05/10-05/13/2020 Preadmission evaluation: ER [...] of this encounter (statuses as of 12/10/2021) [facility] History of Past illness Narrative* Problem Noted Date Resolved Date Encounter for support and coordination of transi tion of care 05/02/2021 07/23/2021 Overview: Hospital discharge summary: Date of admission 05/01/2021 Date of discharge: Facility: [facility] 05/01/2021 presented to the emergency room with [...] 05/02/2021 Overview: HOSPITAL/ER FOLLOW UP Which facility: [facility] Dates of visit: 05/10-05/13/2020 Preadmission evaluation: ER [...] of this encounter (statuses as of 12/10/2021) [facility] History of Past illness Narrative* Problem Noted Date Resolved Date Encounter for support and coordination of transi tion of care 05/02/2021 07/23/2021 Overview: Hospital discharge summary: Date of admission 05/01/2021 Date of discharge: Facility: [facility] 05/01/2021 presented to the emergency room with [...] 05/02/2021 Overview: HOSPITAL/ER FOLLOW UP Which facility: [facility] Dates of visit: 05/10-05/13/2020 Preadmission evaluation: ER [...] of this encounter (statuses as of 12/10/2021) [facility] History of Past illness Narrative* Problem Noted Date Resolved Date Encounter for support and coordination of transi tion of care 05/02/2021 07/23/2021 Overview: Hospital discharge summary: Date of admission 05/01/2021 Date of discharge: Facility: [facility] 05/01/2021 presented to the emergency room with [...] 05/02/2021 Overview: HOSPITAL/ER FOLLOW UP Which facility: [facility] Dates of visit: 05/10-05/13/2020 Preadmission evaluation: ER [...] of this encounter (statuses as of 12/15/2021) [facility] History of Past illness Narrative* Problem Noted Date Resolved Date Encounter for support and coordination of transi tion of care 05/02/2021 07/23/2021 Overview: Hospital discharge summary: Date of admission 05/01/2021 Date of discharge: Facility: [facility] 05/01/2021 presented to the emergency room with [...] 05/02/2021 Overview: HOSPITAL/ER FOLLOW UP Which facility: [facility] Dates of visit: 05/10-05/13/2020 Preadmission evaluation: ER [...] of this encounter (statuses as of 01/04/2022) [facility] History of Past illness Narrative* Problem Noted Date Resolved Date Encounter for support and coordination of transi tion of care 05/02/2021 07/23/2021 Overview: Hospital discharge summary: Date of admission 05/01/2021 Date of discharge: Facility: [facility] 05/01/2021 presented to the emergency room with [...] 05/02/2021 Overview: HOSPITAL/ER FOLLOW UP Which facility: [facility] Dates of visit: 05/10-05/13/2020 Preadmission evaluation: ER [...] of this encounter (statuses as of 01/04/2022) [facility] History of Past illness Narrative* Problem Noted Date Resolved Date Encounter for support and coordination of transi tion of care 05/02/2021 07/23/2021 Overview: Hospital discharge summary: Date of admission 05/01/2021 Date of discharge: Facility: [facility] 05/01/2021 presented to the emergency room with [...] 05/02/2021 Overview: HOSPITAL/ER FOLLOW UP Which facility: [facility] Dates of visit: 05/10-05/13/2020 Preadmission evaluation: ER [...] of this encounter (statuses as of 01/04/2022) [facility] History of Past illness Narrative* Problem Noted Date Resolved Date Encounter for support and coordination of transi tion of care 05/02/2021 07/23/2021 Overview: Hospital discharge summary: Date of admission 05/01/2021 Date of discharge: Facility: [facility] 05/01/2021 presented to the emergency room with [...] 05/02/2021 Overview: HOSPITAL/ER FOLLOW UP Which facility: [facility] Dates of visit: 05/10-05/13/2020 Preadmission evaluation: ER [...] of this encounter (statuses as of 01/14/2022) [facility] History of Past illness Narrative* Problem Noted Date Resolved Date Encounter for support and coordination of transi tion of care 05/02/2021 07/23/2021 Overview: Hospital discharge summary: Date of admission 05/01/2021 Date of discharge: Facility: [facility] 05/01/2021 presented to the emergency room with [...] 05/02/2021 Overview: HOSPITAL/ER FOLLOW UP Which facility: [facility] Dates of visit: 05/10-05/13/2020 Preadmission evaluation: ER [...] of this encounter (statuses as of 01/18/2022) [facility] History of Past illness Narrative* Problem Noted Date Resolved Date Encounter for support and coordination of transi tion of care 05/02/2021 07/23/2021 Overview: Hospital discharge summary: Date of admission 05/01/2021 Date of discharge: Facility: [facility] 05/01/2021 presented to the emergency room with [...] 05/02/2021 Overview: HOSPITAL/ER FOLLOW UP Which facility: [facility] Dates of visit: 05/10-05/13/2020 Preadmission evaluation: ER [...] of this encounter (statuses as of 01/27/2022) [facility] History of Past illness Narrative* Problem Noted Date Resolved Date Encounter for support and coordination of transi tion of care 05/02/2021 07/23/2021 Overview: Hospital discharge summary: Date of admission 05/01/2021 Date of discharge: Facility: [facility] 05/01/2021 presented to the emergency room with [...] 05/02/2021 Overview: HOSPITAL/ER FOLLOW UP Which facility: [facility] Dates of visit: 05/10-05/13/2020 Preadmission evaluation: ER [...] of this encounter (statuses as of 01/29/2022) [facility] History of Past illness Narrative* Problem Noted Date Resolved Date Encounter for support and coordination of transi tion of care 05/02/2021 07/23/2021 Overview: Hospital discharge summary: Date of admission 05/01/2021 Date of discharge: Facility: [facility] 05/01/2021 presented to the emergency room with [...] 05/02/2021 Overview: HOSPITAL/ER FOLLOW UP Which facility: [facility] Dates of visit: 05/10-05/13/2020 Preadmission evaluation: ER [...] of this encounter (statuses as of 01/29/2022) [facility] History of Past illness Narrative* Problem Noted Date Resolved Date Encounter for support and coordination of transi tion of care 05/02/2021 07/23/2021 Overview: Hospital discharge summary: Date of admission 05/01/2021 Date of discharge: Facility: [facility] 05/01/2021 presented to the emergency room with [...] 05/02/2021 Overview: HOSPITAL/ER FOLLOW UP Which facility: [facility] Dates of visit: 05/10-05/13/2020 Preadmission evaluation: ER [...] of this encounter (statuses as of 02/05/2022) [facility] History of Past illness Narrative* Problem Noted Date Resolved Date Encounter for support and coordination of transi tion of care 05/02/2021 07/23/2021 Overview: Hospital discharge summary: Date of admission 05/01/2021 Date of discharge: Facility: [facility] 05/01/2021 presented to the emergency room with [...] 05/02/2021 Overview: HOSPITAL/ER FOLLOW UP Which facility: [facility] Dates of visit: 05/10-05/13/2020 Preadmission evaluation: ER [...] of this encounter (statuses as of 02/11/2022) [facility] History of Past illness Narrative* Problem Noted Date Resolved Date Encounter for support and coordination of transi tion of care 05/02/2021 07/23/2021 Overview: Hospital discharge summary: Date of admission 05/01/2021 Date of discharge: Facility: [facility] 05/01/2021 presented to the emergency room with [...] 05/02/2021 Overview: HOSPITAL/ER FOLLOW UP Which facility: [facility] Dates of visit: 05/10-05/13/2020 Preadmission evaluation: ER [...] of this encounter (statuses as of 02/17/2022) [facility] History of Past illness Narrative* Problem Noted Date Resolved Date Encounter for support and coordination of transi tion of care 05/02/2021 07/23/2021 Overview: Hospital discharge summary: Date of admission 05/01/2021 Date of discharge: Facility: [facility] 05/01/2021 presented to the emergency room with [...] 05/02/2021 Overview: HOSPITAL/ER FOLLOW UP Which facility: [facility] Dates of visit: 05/10-05/13/2020 Preadmission evaluation: ER [...] of this encounter (statuses as of 02/23/2022) [facility] History of Past illness Narrative* Problem Noted Date Resolved Date Encounter for support and coordination of transi tion of care 05/02/2021 07/23/2021 Overview: Hospital discharge summary: Date of admission 05/01/2021 Date of discharge: Facility: [facility] 05/01/2021 presented to the emergency room with [...] 05/02/2021 Overview: HOSPITAL/ER FOLLOW UP Which facility: [facility] Dates of visit: 05/10-05/13/2020 Preadmission evaluation: ER [...] of this encounter (statuses as of 02/24/2022) [facility] History of Past illness Narrative* Problem Noted Date Resolved Date Encounter for support and coordination of transi tion of care 05/02/2021 07/23/2021 Overview: Hospital discharge summary: Date of admission 05/01/2021 Date of discharge: Facility: [facility] 05/01/2021 presented to the emergency room with [...] 05/02/2021 Overview: HOSPITAL/ER FOLLOW UP Which facility: [facility] Dates of visit: 05/10-05/13/2020 Preadmission evaluation: ER [...] of this encounter (statuses as of 02/25/2022) [facility] History of Past illness Narrative* Problem Noted Date Resolved Date Encounter for support and coordination of transi tion of care 05/02/2021 07/23/2021 Overview: Hospital discharge summary: Date of admission 05/01/2021 Date of discharge: Facility: [facility] 05/01/2021 presented to the emergency room with [...] 05/02/2021 Overview: HOSPITAL/ER FOLLOW UP Which facility: [facility] Dates of visit: 05/10-05/13/2020 Preadmission evaluation: ER [...] of this encounter (statuses as of 02/26/2022) [facility] History of Past illness Narrative* Problem Noted Date Resolved Date Encounter for support and coordination of transi tion of care 05/02/2021 07/23/2021 Overview: Hospital discharge summary: Date of admission 05/01/2021 Date of discharge: Facility: [facility] 05/01/2021 presented to the emergency room with [...] 05/02/2021 Overview: HOSPITAL/ER FOLLOW UP Which facility: [facility] Dates of visit: 05/10-05/13/2020 Preadmission evaluation: ER [...] of this encounter (statuses as of 02/27/2022) [facility] History of Past illness Narrative* Problem Noted Date Resolved Date Encounter for support and coordination of transi tion of care 05/02/2021 07/23/2021 Overview: Hospital discharge summary: Date of admission 05/01/2021 Date of discharge: Facility: [facility] 05/01/2021 presented to the emergency room with [...] 05/02/2021 Overview: HOSPITAL/ER FOLLOW UP Which facility: [facility] Dates of visit: 05/10-05/13/2020 Preadmission evaluation: ER [...] of this encounter (statuses as of 03/02/2022) [facility] History of Past illness Narrative* Problem Noted Date Resolved Date Encounter for support and coordination of transi tion of care 05/02/2021 07/23/2021 Overview: Hospital discharge summary: Date of admission 05/01/2021 Date of discharge: Facility: [facility] 05/01/2021 presented to the emergency room with [...] 05/02/2021 Overview: HOSPITAL/ER FOLLOW UP Which facility: [facility] Dates of visit: 05/10-05/13/2020 Preadmission evaluation: ER [...] of this encounter (statuses as of 03/11/2022) [facility]11-13-2021 History of Past illness Narrative* Problem Noted Date Resolved Date Encounter for support and coordination of transi tion of care 05/02/2021 07/23/2021 Overview: Hospital discharge summary: Date of admission 05/01/2021 Date of discharge: Facility: [facility] 05/01/2021 presented to the emergency room with [...] 05/02/2021 Overview: HOSPITAL/ER FOLLOW UP Which facility: [facility] Dates of visit: 05/10-05/13/2020 Preadmission evaluation: ER [...] of this encounter (statuses as of 03/12/2022) [facility]21 History of Past illness Narrative* Problem Noted Date Resolved Date Encounter for support and coordination of transi tion of care 05/02/2021 07/23/2021 Overview: Hospital discharge summary: Date of admission 05/01/2021 Date of discharge: Facility: [facility] 05/01/2021 presented to the emergency room with [...] 05/02/2021 Overview: HOSPITAL/ER FOLLOW UP Which facility: [facility] Dates of visit: 05/10-05/13/2020 Preadmission evaluation: ER [...] of this encounter (statuses as of 03/16/2022) [facility] History of Past illness Narrative* Problem Noted Date Resolved Date Encounter for support and coordination of transi tion of care 05/02/2021 07/23/2021 Overview: Hospital discharge summary: Date of admission 05/01/2021 Date of discharge: Facility: [facility] 05/01/2021 presented to the emergency room with [...] 05/02/2021 Overview: HOSPITAL/ER FOLLOW UP Which facility: [facility] Dates of visit: 05/10-05/13/2020 Preadmission evaluation: ER [...] of this encounter (statuses as of 03/17/2022) [facility] History of Past illness Narrative* Problem Noted Date Resolved Date Encounter for support and coordination of transi tion of care 05/02/2021 07/23/2021 Overview: Hospital discharge summary: Date of admission 05/01/2021 Date of discharge: Facility: [facility] 05/01/2021 presented to the emergency room with [...] 05/02/2021 Overview: HOSPITAL/ER FOLLOW UP Which facility: [facility] Dates of visit: 05/10-05/13/2020 Preadmission evaluation: ER [...] of this encounter (statuses as of 03/25/2022) [facility] History of Past illness Narrative* Problem Noted Date Resolved Date Encounter for support and coordination of transi tion of care 05/02/2021 07/23/2021 Overview: Hospital discharge summary: Date of admission 05/01/2021 Date of discharge: Facility: [facility] 05/01/2021 presented to the emergency room with [...] 05/02/2021 Overview: HOSPITAL/ER FOLLOW UP Which facility: [facility] Dates of visit: 05/10-05/13/2020 Preadmission evaluation: ER [...] of this encounter (statuses as of 03/26/2022) [facility] History of Past illness Narrative* Problem Noted Date Resolved Date Encounter for support and coordination of transi tion of care 05/02/2021 07/23/2021 Overview: Hospital discharge summary: Date of admission 05/01/2021 Date of discharge: Facility: [facility] 05/01/2021 presented to the emergency room with [...] 05/02/2021 Overview: HOSPITAL/ER FOLLOW UP Which facility: [facility] Dates of visit: 05/10-05/13/2020 Preadmission evaluation: ER [...] of this encounter (statuses as of 04/01/2022) [facility] History of Past illness Narrative* Problem Noted Date Resolved Date Encounter for support and coordination of transi tion of care 05/02/2021 07/23/2021 Overview: Hospital discharge summary: Date of admission 05/01/2021 Date of discharge: Facility: [facility] 05/01/2021 presented to the emergency room with [...] 05/02/2021 Overview: HOSPITAL/ER FOLLOW UP Which facility: [facility] Dates of visit: 05/10-05/13/2020 Preadmission evaluation: ER [...] of this encounter (statuses as of 04/12/2022) [facility] History of Past illness Narrative* Problem Noted Date Resolved Date Encounter for support and coordination of transi tion of care 05/02/2021 07/23/2021 Overview: Hospital discharge summary: Date of admission 05/01/2021 Date of discharge: Facility: [facility] 05/01/2021 presented to the emergency room with [...] 05/02/2021 Overview: HOSPITAL/ER FOLLOW UP Which facility: [facility] Dates of visit: 05/10-05/13/2020 Preadmission evaluation: ER [...] of this encounter (statuses as of 04/19/2022) [facility] History of Past illness Narrative* Problem Noted Date Resolved Date Encounter for support and coordination of transi tion of care 05/02/2021 07/23/2021 Overview: Hospital discharge summary: Date of admission 05/01/2021 Date of discharge: Facility: [facility] 05/01/2021 presented to the emergency room with [...] 05/02/2021 Overview: HOSPITAL/ER FOLLOW UP Which facility: [facility] Dates of visit: 05/10-05/13/2020 Preadmission evaluation: ER [...] of this encounter (statuses as of 04/23/2022) [facility] History of Past illness Narrative* Problem Noted Date Resolved Date Encounter for support and coordination of transi tion of care 05/02/2021 07/23/2021 Overview: Hospital discharge summary: Date of admission 05/01/2021 Date of discharge: Facility: [facility] 05/01/2021 presented to the emergency room with [...] 05/02/2021 Overview: HOSPITAL/ER FOLLOW UP Which facility: [facility] Dates of visit: 05/10-05/13/2020 Preadmission evaluation: ER [...] of this encounter (statuses as of 05/07/2022) [facility] History of Past illness Narrative* Problem Noted Date Resolved Date Encounter for support and coordination of transi tion of care 05/02/2021 07/23/2021 Overview: Hospital discharge summary: Date of admission 05/01/2021 Date of discharge: Facility: [facility] 05/01/2021 presented to the emergency room with [...] 05/02/2021 Overview: HOSPITAL/ER FOLLOW UP Which facility: [facility] Dates of visit: 05/10-05/13/2020 Preadmission evaluation: ER [...] of this encounter (statuses as of 05/07/2022) [facility] History of Past illness Narrative* Problem Noted Date Resolved Date Encounter for support and coordination of transi tion of care 05/02/2021 07/23/2021 Overview: Hospital discharge summary: Date of admission 05/01/2021 Date of discharge: Facility: [facility] 05/01/2021 presented to the emergency room with [...] 05/02/2021 Overview: HOSPITAL/ER FOLLOW UP Which facility: [facility] Dates of visit: 05/10-05/13/2020 Preadmission evaluation: ER [...] of this encounter (statuses as of 05/11/2022) [facility] History of Past illness Narrative* Problem Noted Date Resolved Date Encounter for support and coordination of transi tion of care 05/02/2021 07/23/2021 Overview: Hospital discharge summary: Date of admission 05/01/2021 Date of discharge: Facility: [facility] 05/01/2021 presented to the emergency room with [...] 05/02/2021 Overview: HOSPITAL/ER FOLLOW UP Which facility: [facility] Dates of visit: 05/10-05/13/2020 Preadmission evaluation: ER [...] of this encounter (statuses as of 05/14/2022) [facility] History of Past illness Narrative* Problem Noted Date Resolved Date Encounter for support and coordination of transi tion of care 05/02/2021 07/23/2021 Overview: Hospital discharge summary: Date of admission 05/01/2021 Date of discharge: Facility: [facility] 05/01/2021 presented to the emergency room with [...] 05/02/2021 Overview: HOSPITAL/ER FOLLOW UP Which facility: [facility] Dates of visit: 05/10-05/13/2020 Preadmission evaluation: ER [...] of this encounter (statuses as of 05/20/2022) [facility] History of Past illness Narrative* Problem Noted Date Resolved Date Encounter for support and coordination of transi tion of care 05/02/2021 07/23/2021 Overview: Hospital discharge summary: Date of admission 05/01/2021 Date of discharge: Facility: [facility] 05/01/2021 presented to the emergency room with [...] 05/02/2021 Overview: HOSPITAL/ER FOLLOW UP Which facility: [facility] Dates of visit: 05/10-05/13/2020 Preadmission evaluation: ER [...] of this encounter (statuses as of 05/21/2022) [facility] History of Past illness Narrative* Problem Noted Date Resolved Date Encounter for support and coordination of transi tion of care 05/02/2021 07/23/2021 Overview: Hospital discharge summary: Date of admission 05/01/2021 Date of discharge: Facility: [facility] 05/01/2021 presented to the emergency room with [...] 05/02/2021 Overview: HOSPITAL/ER FOLLOW UP Which facility: [facility] Dates of visit: 05/10-05/13/2020 Preadmission evaluation: ER [...] of this encounter (statuses as of 05/25/2022) [facility] History of Past illness Narrative* Problem Noted Date Resolved Date Encounter for support and coordination of transi tion of care 05/02/2021 07/23/2021 Overview: Hospital discharge summary: Date of admission 05/01/2021 Date of discharge: Facility: [facility] 05/01/2021 presented to the emergency room with [...] 05/02/2021 Overview: HOSPITAL/ER FOLLOW UP Which facility: [facility] Dates of visit: 05/10-05/13/2020 Preadmission evaluation: ER [...] of this encounter (statuses as of 05/27/2022) [facility] History of Past illness Narrative* Problem Noted Date Resolved Date Encounter for support and coordination of transi tion of care 05/02/2021 07/23/2021 Overview: Hospital discharge summary: Date of admission 05/01/2021 Date of discharge: Facility: [facility] 05/01/2021 presented to the emergency room with [...] 05/02/2021 Overview: HOSPITAL/ER FOLLOW UP Which facility: [facility] Dates of visit: 05/10-05/13/2020 Preadmission evaluation: ER [...] of this encounter (statuses as of 05/31/2022) [facility] History of Past illness Narrative* Problem Noted Date Resolved Date Encounter for support and coordination of transi tion of care 05/02/2021 07/23/2021 Overview: Hospital discharge summary: Date of admission 05/01/2021 Date of discharge: Facility: [facility] 05/01/2021 presented to the emergency room with [...] 05/02/2021 Overview: HOSPITAL/ER FOLLOW UP Which facility: [facility] Dates of visit: 05/10-05/13/2020 Preadmission evaluation: ER [...] of this encounter (statuses as of 06/03/2022) [facility] History of Past illness Narrative* Problem Noted Date Resolved Date Encounter for support and coordination of transi tion of care 05/02/2021 07/23/2021 Overview: Hospital discharge summary: Date of admission 05/01/2021 Date of discharge: Facility: [facility] 05/01/2021 presented to the emergency room with [...] 05/02/2021 Overview: HOSPITAL/ER FOLLOW UP Which facility: [facility] Dates of visit: 05/10-05/13/2020 Preadmission evaluation: ER [...] of this encounter (statuses as of 06/03/2022) [facility] History of Past illness Narrative* Problem Noted Date Resolved Date Encounter for support and coordination of transi on of care 05/02/2021 07/23/2021 Overview: Hospital discharge summary: Date of admission 05/01/2021 Date of discharge: Facility: [facility] 05/01/2021 presented to the emergency room with [...] 05/02/2021 Overview: HOSPITAL/ER FOLLOW UP Which facility: [facility] Dates of visit: 05/10-05/13/2020 Preadmission evaluation: ER [...] of this encounter (statuses as of 06/13/2022) [facility] History of Past illness Narrative* Problem Noted Date Resolved Date Encounter for support and coordination of transi tion of care 05/02/2021 07/23/2021 Overview: Hospital discharge summary: Date of admission 05/01/2021 Date of discharge: Facility: [facility] 05/01/2021 presented to the emergency room with [...] 05/02/2021 Overview: HOSPITAL/ER FOLLOW UP Which facility: [facility] Dates of visit: 05/10-05/13/2020 Preadmission evaluation: ER [...] of this encounter (statuses as of 06/13/2022) [facility] History of Past illness Narrative* Problem Noted Date Resolved Date Encounter for support and coordination of transi tion of care 05/02/2021 07/23/2021 Overview: Hospital discharge summary: Date of admission 05/01/2021 Date of discharge: Facility: [facility] 05/01/2021 presented to the emergency room with [...] 05/02/2021 Overview: HOSPITAL/ER FOLLOW UP Which facility: [facility] Dates of visit: 05/10-05/13/2020 Preadmission evaluation: ER [...] of this encounter (statuses as of 06/22/2022) [facility] History of Past illness Narrative* Problem Noted Date Resolved Date Encounter for support and coordination of transi tion of care 05/02/2021 07/23/2021 Overview: Hospital discharge summary: Date of admission 05/01/2021 Date of discharge: Facility: [facility] 05/01/2021 presented to the emergency room with [...] 05/02/2021 Overview: HOSPITAL/ER FOLLOW UP Which facility: [facility] Dates of visit: 05/10-05/13/2020 Preadmission evaluation: ER [...] of this encounter (statuses as of 06/23/2022) [facility] History of Past illness Narrative* Problem Noted Date Resolved Date Encounter for support and coordination of transi tion of care 05/02/2021 07/23/2021 Overview: Hospital discharge summary: Date of admission 05/01/2021 Date of discharge: Facility: [facility] 05/01/2021 presented to the emergency room with [...] 05/02/2021 Overview: HOSPITAL/ER FOLLOW UP Which facility: [facility] Dates of visit: 05/10-05/13/2020 Preadmission evaluation: ER [...] of this encounter (statuses as of 06/23/2022) [facility] History of Past illness Narrative* Problem Noted Date Resolved Date Encounter for support and coordination of transi tion of care 05/02/2021 07/23/2021 Overview: Hospital discharge summary: Date of admission 05/01/2021 Date of discharge: Facility: [facility] 05/01/2021 presented to the emergency room with [...] 05/02/2021 Overview: HOSPITAL/ER FOLLOW UP Which facility: [facility] Dates of visit: 05/10-05/13/2020 Preadmission evaluation: ER [...] of this encounter (statuses as of 06/23/2022) [facility] History of Past illness Narrative* Problem Noted Date Resolved Date Encounter for support and coordination of transi tion of care 05/02/2021 07/23/2021 Overview: Hospital discharge summary: Date of admission 05/01/2021 Date of discharge: Facility: [facility] 05/01/2021 presented to the emergency room with [...] 05/02/2021 Overview: HOSPITAL/ER FOLLOW UP Which facility: [facility] Dates of visit: 05/10-05/13/2020 Preadmission evaluation: ER [...] of this encounter (statuses as of 06/25/2022) [facility] History of Past illness Narrative* Problem Noted Date Resolved Date Encounter for support and coordination of transi tion of care 05/02/2021 07/23/2021 Overview: Hospital discharge summary: Date of admission 05/01/2021 Date of discharge: Facility: [facility] 05/01/2021 presented to the emergency room with [...] 05/02/2021 Overview: HOSPITAL/ER FOLLOW UP Which facility: [facility] Dates of visit: 05/10-05/13/2020 Preadmission evaluation: ER [...] of this encounter (statuses as of 06/25/2022) [facility] History of Past illness Narrative* Problem Noted Date Resolved Date Encounter for support and coordination of transi tion of care 05/02/2021 07/23/2021 Overview: Hospital discharge summary: Date of admission 05/01/2021 Date of discharge: Facility: [facility] 05/01/2021 presented to the emergency room with [...] 05/02/2021 Overview: HOSPITAL/ER FOLLOW UP Which facility: [facility] Dates of visit: 05/10-05/13/2020 Preadmission evaluation: ER [...] of this encounter (statuses as of 06/28/2022) [facility] History of Past illness Narrative* Problem Noted Date Resolved Date Encounter for support and coordination of transi tion of care 05/02/2021 07/23/2021 Overview: Hospital discharge summary: Date of admission 05/01/2021 Date of discharge: Facility: [facility] 05/01/2021 presented to the emergency room with [...] 05/02/2021 Overview: HOSPITAL/ER FOLLOW UP Which facility: [facility] Dates of visit: 05/10-05/13/2020 Preadmission evaluation: ER [...] of this encounter (statuses as of 07/14/2022) [facility] History of Past illness Narrative* Problem Noted Date Resolved Date Encounter for support and coordination of transi tion of care 05/02/2021 07/23/2021 Overview: Hospital discharge summary: Date of admission 05/01/2021 Date of discharge: Facility: [facility] 05/01/2021 presented to the emergency room with [...] 05/02/2021 Overview: HOSPITAL/ER FOLLOW UP Which facility: [facility] Dates of visit: 05/10-05/13/2020 Preadmission evaluation: ER [...] of this encounter (statuses as of 07/16/2022) [facility] History of Past illness Narrative* Problem Noted Date Resolved Date Encounter for support and coordination of transi tion of care 05/02/2021 07/23/2021 Overview: Hospital discharge summary: Date of admission 05/01/2021 Date of discharge: Facility: [facility] 05/01/2021 presented to the emergency room with [...] 05/02/2021 Overview: HOSPITAL/ER FOLLOW UP Which facility: [facility] Dates of visit: 05/10-05/13/2020 Preadmission evaluation: ER [...] of this encounter (statuses as of 07/22/2022) [facility] History of Past illness Narrative* Problem Noted Date Resolved Date Encounter for support and coordination of transi tion of care 05/02/2021 07/23/2021 Overview: Hospital discharge summary: Date of admission 05/01/2021 Date of discharge: Facility: [facility] 05/01/2021 presented to the emergency room with [...] 05/02/2021 Overview: HOSPITAL/ER FOLLOW UP Which facility: [facility] Dates of visit: 05/10-05/13/2020 Preadmission evaluation: ER [...] of this encounter (statuses as of 08/06/2022) [facility] History of Past illness Narrative* Problem Noted Date Resolved Date Encounter for support and coordination of transi tion of care 05/02/2021 07/23/2021 Overview: Hospital discharge summary: Date of admission 05/01/2021 Date of discharge: Facility: [facility] 05/01/2021 presented to the emergency room with [...] 05/02/2021 Overview: HOSPITAL/ER FOLLOW UP Which facility: [facility] Dates of visit: 05/10-05/13/2020 Preadmission evaluation: ER [...] of this encounter (statuses as of 08/13/2022) [facility] History of Past illness Narrative* Problem Noted Date Resolved Date Encounter for support and coordination of transi tion of care 05/02/2021 07/23/2021 Overview: Hospital discharge summary: Date of admission 05/01/2021 Date of discharge: Facility: [facility] 05/01/2021 presented to the emergency room with [...] 05/02/2021 Overview: HOSPITAL/ER FOLLOW UP Which facility: [facility] Dates of visit: 05/10-05/13/2020 Preadmission evaluation: ER [...] of this encounter (statuses as of 08/16/2022) [facility] History of Past illness Narrative* Problem Noted Date Resolved Date Encounter for support and coordination of transi tion of care 05/02/2021 07/23/2021 Overview: Hospital discharge summary: Date of admission 05/01/2021 Date of discharge: Facility: [facility] 05/01/2021 presented to the emergency room with [...] 05/02/2021 Overview: HOSPITAL/ER FOLLOW UP Which facility: [facility] Dates of visit: 05/10-05/13/2020 Preadmission evaluation: ER [...] of this encounter (statuses as of 08/17/2022) [facility] History of Past illness Narrative* Problem Noted Date Resolved Date Encounter for support and coordination of transi tion of care 05/02/2021 07/23/2021 Overview: Hospital discharge summary: Date of admission 05/01/2021 Date of discharge: Facility: [facility] 05/01/2021 presented to the emergency room with [...] 05/02/2021 Overview: HOSPITAL/ER FOLLOW UP Which facility: [facility] Dates of visit: 05/10-05/13/2020 Preadmission evaluation: ER [...] of this encounter (statuses as of 08/18/2022) [facility] History of Past illness Narrative* Problem Noted Date Resolved Date Encounter for support and coordination of transi tion of care 05/02/2021 07/23/2021 Overview: Hospital discharge summary: Date of admission 05/01/2021 Date of discharge: Facility: [facility] 05/01/2021 presented to the emergency room with [...] 05/02/2021 Overview: HOSPITAL/ER FOLLOW UP Which facility: [facility] Dates of visit: 05/10-05/13/2020 Preadmission evaluation: ER [...] of this encounter (statuses as of 08/26/2022) [facility] History of Past illness Narrative* Problem Noted Date Resolved Date Encounter for support and coordination of transi tion of care 05/02/2021 07/23/2021 Overview: Hospital discharge summary: Date of admission 05/01/2021 Date of discharge: Facility: [facility] 05/01/2021 presented to the emergency room with [...] 05/02/2021 Overview: HOSPITAL/ER FOLLOW UP Which facility: [facility] Dates of visit: 05/10-05/13/2020 Preadmission evaluation: ER [...] of this encounter (statuses as of 08/27/2022) [facility] History of Past illness Narrative* Problem Noted Date Resolved Date Encounter for support and coordination of transi tion of care 05/02/2021 07/23/2021 Overview: Hospital discharge summary: Date of admission 05/01/2021 Date of discharge: Facility: [facility] 05/01/2021 presented to the emergency room with [...] 05/02/2021 Overview: HOSPITAL/ER FOLLOW UP Which facility: [facility] Dates of visit: 05/10-05/13/2020 Preadmission evaluation: ER [...] of this encounter (statuses as of 09/01/2022) [facility] History of Past illness Narrative* Problem Noted Date Resolved Date Encounter for support and coordination of transi tion of care 05/02/2021 07/23/2021 Overview: Hospital discharge summary: Date of admission 05/01/2021 Date of discharge: Facility: [facility] 05/01/2021 presented to the emergency room with [...] 05/02/2021 Overview: HOSPITAL/ER FOLLOW UP Which facility: [facility] Dates of visit: 05/10-05/13/2020 Preadmission evaluation: ER [...] of this encounter (statuses as of 09/16/2022) [facility] History of Past illness Narrative* Problem Noted Date Resolved Date Encounter for support and coordination of transi tion of care 05/02/2021 07/23/2021 Overview: Hospital discharge summary: Date of admission 05/01/2021 Date of discharge: Facility: [facility] 05/01/2021 presented to the emergency room with [...] 05/02/2021 Overview: HOSPITAL/ER FOLLOW UP Which facility: [facility] Dates of visit: 05/10-05/13/2020 Preadmission evaluation: ER [...] of this encounter (statuses as of 10/09/2022) [facility] History of Past illness Narrative* Problem Noted Date Resolved Date Encounter for support and coordination of transi tion of care 05/02/2021 07/23/2021 Overview: Hospital discharge summary: Date of admission 05/01/2021 Date of discharge: Facility: [facility] 05/01/2021 presented to the emergency room with [...] 05/02/2021 Overview: HOSPITAL/ER FOLLOW UP Which facility: [facility] Dates of visit: 05/10-05/13/2020 Preadmission evaluation: ER [...] of this encounter (statuses as of 10/14/2022) [facility] History of Past illness Narrative* Problem Noted Date Resolved Date Encounter for support and coordination of transi tion of care 05/02/2021 07/23/2021 Overview: Hospital discharge summary: Date of admission 05/01/2021 Date of discharge: Facility: [facility] 05/01/2021 presented to the emergency room with [...] 05/02/2021 Overview: HOSPITAL/ER FOLLOW UP Which facility: [facility] Dates of visit: 05/10-05/13/2020 Preadmission evaluation: ER [...] of this encounter (statuses as of 10/21/2022) [facility] History of Past illness Narrative* Problem Noted Date Resolved Date Encounter for support and coordination of transi tion of care 05/02/2021 07/23/2021 Overview: Hospital discharge summary: Date of admission 05/01/2021 Date of discharge: Facility: [facility] 05/01/2021 presented to the emergency room with [...] 05/02/2021 Overview: HOSPITAL/ER FOLLOW UP Which facility: [facility] Dates of visit: 05/10-05/13/2020 Preadmission evaluation: ER [...] of this encounter (statuses as of 10/27/2022) [facility] History of Past illness Narrative* Problem Noted Date Resolved Date Encounter for support and coordination of transi tion of care 05/02/2021 07/23/2021 Overview: Hospital discharge summary: Date of admission 05/01/2021 Date of discharge: Facility: [facility] 05/01/2021 presented to the emergency room with [...] 05/02/2021 Overview: HOSPITAL/ER FOLLOW UP Which facility: [facility] Dates of visit: 05/10-05/13/2020 Preadmission evaluation: ER [...] of this encounter (statuses as of 11/22/2022) [facility] History of Past illness Narrative* Problem Noted Date Resolved Date Encounter for support and coordination of transi tion of care 05/02/2021 07/23/2021 Overview: Hospital discharge summary: Date of admission 05/01/2021 Date of discharge: Facility: [facility] 05/01/2021 presented to the emergency room with [...] 05/02/2021 Overview: HOSPITAL/ER FOLLOW UP Which facility: [facility] Dates of visit: 05/10-05/13/2020 Preadmission evaluation: ER [...] of this encounter (statuses as of 11/23/2022) [facility] History of Past illness Narrative* Problem Noted Date Resolved Date Encounter for support and coordination of transi tion of care 05/02/2021 07/23/2021 Overview: Hospital discharge summary: Date of admission 05/01/2021 Date of discharge: Facility: [facility] 05/01/2021 presented to the emergency room with [...] 05/02/2021 Overview: HOSPITAL/ER FOLLOW UP Which facility: [facility] Dates of visit: 05/10-05/13/2020 Preadmission evaluation: ER [...] of this encounter (statuses as of 12/10/2022) [facility] History of Past illness Narrative* Problem Noted Date Resolved Date Encounter for support and coordination of transi tion of care 05/02/2021 07/23/2021 Overview: Hospital discharge summary: Date of admission 05/01/2021 Date of discharge: Facility: [facility] 05/01/2021 presented to the emergency room with [...] 05/02/2021 Overview: HOSPITAL/ER FOLLOW UP Which facility: [facility] Dates of visit: 05/10-05/13/2020 Preadmission evaluation: ER [...] of this encounter (statuses as of 12/10/2022) [facility] History of Past illness Narrative* Problem Noted Date Resolved Date Encounter for support and coordination of transi tion of care 05/02/2021 07/23/2021 Overview: Hospital discharge summary: Date of admission 05/01/2021 Date of discharge: Facility: [facility] 05/01/2021 presented to the emergency room with [...] 05/02/2021 Overview: HOSPITAL/ER FOLLOW UP Which facility: [facility] Dates of visit: 05/10-05/13/2020 Preadmission evaluation: ER [...] of this encounter (statuses as of 12/10/2022) [facility] History of Past illness Narrative* Problem Noted Date Resolved Date Encounter for support and coordination of transi tion of care 05/02/2021 07/23/2021 Overview: Hospital discharge summary: Date of admission 05/01/2021 Date of discharge: Facility: [facility] 05/01/2021 presented to the emergency room with [...] 05/02/2021 Overview: HOSPITAL/ER FOLLOW UP Which facility: [facility] Dates of visit: 05/10-05/13/2020 Preadmission evaluation: ER [...] of this encounter (statuses as of 12/16/2022) [facility] History of Past illness Narrative* Problem Noted Date Resolved Date Encounter for support and coordination of transi tion of care 05/02/2021 07/23/2021 Overview: Hospital discharge summary: Date of admission 05/01/2021 Date of discharge: Facility: [facility] 05/01/2021 presented to the emergency room with [...] 05/02/2021 Overview: HOSPITAL/ER FOLLOW UP Which facility: [facility] Dates of visit: 05/10-05/13/2020 Preadmission evaluation: ER [...] of this encounter (statuses as of 12/16/2022) [facility] History of Past illness Narrative* Problem Noted Date Resolved Date Encounter for support and coordination of transi on of care 05/02/2021 07/23/2021 Overview: Hospital discharge summary: Date of admission 05/01/2021 Date of discharge: Facility: [facility] 05/01/2021 presented to the emergency room with [...] 05/02/2021 Overview: HOSPITAL/ER FOLLOW UP Which facility: [facility] Dates of visit: 05/10-05/13/2020 Preadmission evaluation: ER [...] of this encounter (statuses as of 12/23/2022) [facility] History of Past illness Narrative* Problem Noted Date Resolved Date Encounter for support and coordination of transi tion of care 05/02/2021 07/23/2021 Overview: Hospital discharge summary: Date of admission 05/01/2021 Date of discharge: Facility: [facility] 05/01/2021 presented to the emergency room with [...] 05/02/2021 Overview: HOSPITAL/ER FOLLOW UP Which facility: [facility] Dates of visit: 05/10-05/13/2020 Preadmission evaluation: ER [...] of this encounter (statuses as of 12/24/2022) [facility] History of Past illness Narrative* Problem Noted Date Diagnosed Date Resolved Date Encounter for support and co ordination of transition of care 05/02/2021 07/23/2021 Overview: Hospital discharge summary: Date of admission 05/01/2021 Date of discharge: Facility: [facility] 05/01/2021 presented to the emergency room with [...] 05/02/2021 Overview: HOSPITAL/ER FOLLOW UP Which facility: [facility] Dates of visit: 05/10-05/13/2020 Preadmission evaluation: ER [...] of this encounter (statuses as of 01/05/2023) [facility] History of Past illness Narrative* Problem Noted Date Diagnosed Date Resolved Date Encounter for support and co ordination of transition of care 05/02/2021 07/23/2021 Overview: Hospital discharge summary: Date of admission 05/01/2021 Date of discharge: Facility: [facility] 05/01/2021 presented to the emergency room with [...] 05/02/2021 Overview: HOSPITAL/ER FOLLOW UP Which facility: [facility] Dates of visit: 05/10-05/13/2020 Preadmission evaluation: ER [...] of this encounter (statuses as of 01/05/2023) [facility] History of Past illness Narrative* Problem Noted Date Diagnosed Date Resolved Date Encounter for support and co ordination of transition of care 05/02/2021 07/23/2021 Overview: Hospital discharge summary: Date of admission 05/01/2021 Date of discharge: Facility: [facility] 05/01/2021 presented to the emergency room with [...] 05/02/2021 Overview: HOSPITAL/ER FOLLOW UP Which facility: [facility] Dates of visit: 05/10-05/13/2020 Preadmission evaluation: ER [...] of this encounter (statuses as of 01/07/2023) [facility] History of Past illness Narrative* Problem Noted Date Diagnosed Date Resolved Date Encounter for support and co ordination of transition of care 05/02/2021 07/23/2021 Overview: Hospital discharge summary: Date of admission 05/01/2021 Date of discharge: Facility: [facility] 05/01/2021 presented to the emergency room with [...] 05/02/2021 Overview: HOSPITAL/ER FOLLOW UP Which facility: [facility] Dates of visit: 05/10-05/13/2020 Preadmission evaluation: ER [...] of this encounter (statuses as of 01/14/2023) [facility] History of Past illness Narrative* Problem Noted Date Diagnosed Date Resolved Date Encounter for support and co ordination of transition of care 05/02/2021 07/23/2021 Overview: Hospital discharge summary: Date of admission 05/01/2021 Date of discharge: Facility: [facility] 05/01/2021 presented to the emergency room with [...] 05/02/2021 Overview: HOSPITAL/ER FOLLOW UP Which facility: [facility] Dates of visit: 05/10-05/13/2020 Preadmission evaluation: ER [...] of this encounter (statuses as of 01/29/2023) [facility] History of Past illness Narrative* Problem Noted Date Diagnosed Date Resolved Date Encounter for support and co ordination of transition of care 05/02/2021 07/23/2021 Overview: Hospital discharge summary: Date of admission 05/01/2021 Date of discharge: Facility: [facility] 05/01/2021 presented to the emergency room with [...] 05/02/2021 Overview: HOSPITAL/ER FOLLOW UP Which facility: [facility] Dates of visit: 05/10-05/13/2020 Preadmission evaluation: ER [...] of this encounter (statuses as of 01/31/2023) [facility] History of Past illness Narrative* Problem Noted Date Diagnosed Date Resolved Date Encounter for support and co ordination of transition of care 05/02/2021 07/23/2021 Overview: Hospital discharge summary: Date of admission 05/01/2021 Date of discharge: Facility: [facility] 05/01/2021 presented to the emergency room with acute alcohol intoxication, initial alcohol level 7-8. Acknowledges over the last 5 months drinking 15 packs a day at 8% alcohol (nataidan garciady). Vital signs 96.6 F-78-18-111/73-98%. Appearance was no [...] 05/02/2021 Overview: HOSPITAL/ER FOLLOW UP Which facility: [facility] Dates of visit: 05/10-05/13/2020 Preadmission evaluation: ER [...] of this encounter (statuses as of 02/01/2023) [facility] History of Past illness Narrative* Problem Noted Date Diagnosed Date Resolved Date Encounter for support and co ordination of transition of care 05/02/2021 07/23/2021 Overview: Hospital discharge summary: Date of admission 05/01/2021 Date of discharge: Facility: [facility] 05/01/2021 presented to the emergency room with [...] 05/02/2021 Overview: HOSPITAL/ER FOLLOW UP Which facility: [facility] Dates of visit: 05/10-05/13/2020 Preadmission evaluation: ER [...] of this encounter (statuses as of 02/03/2023) [facility] History of Past illness Narrative* Problem Noted Date Diagnosed Date Resolved Date Encounter for support and co ordination of transition of care 05/02/2021 07/23/2021 Overview: Hospital discharge summary: Date of admission 05/01/2021 Date of discharge: Facility: [facility] 05/01/2021 presented to the emergency room with [...] 05/02/2021 Overview: HOSPITAL/ER FOLLOW UP Which facility: [facility] Dates of visit: 05/10-05/13/2020 Preadmission evaluation: ER [...] of this encounter (statuses as of 02/08/2023) [facility] History of Past illness Narrative* Problem Noted Date Diagnosed Date Resolved Date Encounter for support and co ordination of transition of care 05/02/2021 07/23/2021 Overview: Hospital discharge summary: Date of admission 05/01/2021 Date of discharge: Facility: [facility] 05/01/2021 presented to the emergency room with [...] 05/02/2021 Overview: HOSPITAL/ER FOLLOW UP Which facility: [facility] Dates of visit: 05/10-05/13/2020 Preadmission evaluation: ER [...] of this encounter (statuses as of 02/14/2023) [facility] History of Past illness Narrative* Problem Noted Date Diagnosed Date Resolved Date Encounter for support and co ordination of transition of care 05/02/2021 07/23/2021 Overview: Hospital discharge summary: Date of admission 05/01/2021 Date of discharge: Facility: [facility] 05/01/2021 presented to the emergency room with [...] 05/02/2021 Overview: HOSPITAL/ER FOLLOW UP Which facility: [facility] Dates of visit: 05/10-05/13/2020 Preadmission evaluation: ER [...] of this encounter (statuses as of 02/15/2023) [facility] History of Past illness Narrative* Problem Noted Date Diagnosed Date Resolved Date Encounter for support and co ordination of transition of care 05/02/2021 07/23/2021 Overview: Hospital discharge summary: Date of admission 05/01/2021 Date of discharge: Facility: [facility] 05/01/2021 presented to the emergency room with [...] 05/02/2021 Overview: HOSPITAL/ER FOLLOW UP Which facility: [facility] Dates of visit: 05/10-05/13/2020 Preadmission evaluation: ER [...] of this encounter (statuses as of 02/16/2023) [facility] History of Past illness Narrative* Problem Noted Date Diagnosed Date Resolved Date Encounter for support and co ordination of transition of care 05/02/2021 07/23/2021 Overview: Hospital discharge summary: Date of admission 05/01/2021 Date of discharge: Facility: [facility] 05/01/2021 presented to the emergency room with acute alcohol intoxication, initial alcohol level 7-8. Acknowledges over the last 5 months drinking 15 packs a day at 8% alcohol (nataidan dadalfa). Vital signs 96.6 F-78-18-111/73-98%. Appearance was [...] 05/02/2021 Overview: HOSPITAL/ER FOLLOW UP Which facility: [facility] Dates of visit: 05/10-05/13/2020 Preadmission evaluation: ER [...] of this encounter (statuses as of 03/01/2023) [facility] History of Past illness Narrative* Problem Noted Date Diagnosed Date Resolved Date Encounter for support and co ordination of transition of care 05/02/2021 07/23/2021 Overview: Hospital discharge summary: Date of admission 05/01/2021 Date of discharge: Facility: [facility] 05/01/2021 presented to the emergency room with [...] 05/02/2021 Overview: HOSPITAL/ER FOLLOW UP Which facility: [facility] Dates of visit: 05/10-05/13/2020 Preadmission evaluation: ER [...] of this encounter (statuses as of 03/09/2023) [facility] History of Past illness Narrative* Problem Noted Date Diagnosed Date Resolved Date Encounter for support and co ordination of transition of care 05/02/2021 07/23/2021 Overview: Hospital discharge summary: Date of admission 05/01/2021 Date of discharge: Facility: [facility] 05/01/2021 presented to the emergency room with [...] 05/02/2021 Overview: HOSPITAL/ER FOLLOW UP Which facility: [facility] Dates of visit: 05/10-05/13/2020 Preadmission evaluation: ER [...] of this encounter (statuses as of 03/12/2023) [facility] History of Past illness Narrative* Problem Noted Date Diagnosed Date Resolved Date Encounter for support and co ordination of transition of care 05/02/2021 07/23/2021 Overview: Hospital discharge summary: Date of admission 05/01/2021 Date of discharge: Facility: [facility] 05/01/2021 presented to the emergency room with [...] 05/02/2021 Overview: HOSPITAL/ER FOLLOW UP Which facility: [facility] Dates of visit: 05/10-05/13/2020 Preadmission evaluation: ER [...] of this encounter (statuses as of 04/25/2023) [facility] History of Past illness Narrative* Problem Noted Date Diagnosed Date Resolved Date Encounter for support and co ordination of transition of care 05/02/2021 07/23/2021 Overview: Hospital discharge summary: Date of admission 05/01/2021 Date of discharge: Facility: [facility] 05/01/2021 presented to the emergency room with [...] 05/02/2021 Overview: HOSPITAL/ER FOLLOW UP Which facility: [facility] Dates of visit: 05/10-05/13/2020 Preadmission evaluation: ER [...] of this encounter (statuses as of 04/25/2023) [facility] History of Past illness Narrative* Problem Noted Date Diagnosed Date Resolved Date Encounter for support and co ordination of transition of care 05/02/2021 07/23/2021 Overview: Hospital discharge summary: Date of admission 05/01/2021 Date of discharge: Facility: [facility] 05/01/2021 presented to the emergency room with [...] 05/02/2021 Overview: HOSPITAL/ER FOLLOW UP Which facility: [facility] Dates of visit: 05/10-05/13/2020 Preadmission evaluation: ER [...] of this encounter (statuses as of 04/25/2023) [facility] History of Past illness Narrative* Problem Noted Date Diagnosed Date Resolved Date Encounter for support and co ordination of transition of care 05/02/2021 07/23/2021 Overview: Hospital discharge summary: Date of admission 05/01/2021 Date of discharge: Facility: [facility] 05/01/2021 presented to the emergency room with [...] 05/02/2021 Overview: HOSPITAL/ER FOLLOW UP Which facility: [facility] Dates of visit: 05/10-05/13/2020 Preadmission evaluation: ER [...] of this encounter (statuses as of 05/11/2023) [facility] History of Past illness Narrative* Problem Noted Date Diagnosed Date Resolved Date Encounter for support and co ordination of transition of care 05/02/2021 07/23/2021 Overview: Hospital discharge summary: Date of admission 05/01/2021 Date of discharge: Facility: [facility] 05/01/2021 presented to the emergency room with [...] 05/02/2021 Overview: HOSPITAL/ER FOLLOW UP Which facility: [facility] Dates of visit: 05/10-05/13/2020 Preadmission evaluation: ER [...] of this encounter (statuses as of 05/20/2023) [facility] History of Past illness Narrative* Problem Noted Date Diagnosed Date Resolved Date Encounter for support and co ordination of transition of care 05/02/2021 07/23/2021 Overview: Hospital discharge summary: Date of admission 05/01/2021 Date of discharge: Facility: [facility] 05/01/2021 presented to the emergency room with [...] 05/02/2021 Overview: HOSPITAL/ER FOLLOW UP Which facility: [facility] Dates of visit: 05/10-05/13/2020 Preadmission evaluation: ER [...] of this encounter (statuses as of 05/25/2023) [facility] Diagnosis Vitamin D deficiency Unspecified vitamin D deficiency [facility] NO SHOW- Primary [facility] Diagnosis Encounter for screening mammogram for breast cancer [facility] Diagnosis Abnormal mammogram- Primary Abnormal mammogram, unspecified [facility] Diagnosis Inconclusive mammogram- Primary [facility] Diagnosis NO SHOW- Primary documented in this encounter [facility] note* Diagnosis Radiculopathy, lumbar region- Primary Thoracic or lumbosacral neuritis or radiculitis, unspecified [facility]* Diagnosis Alcohol abuse- Primary Alcohol abuse, unspecified Delusional disorder (HCC) Gastroesophageal reflux disease without esophagitis Esophageal reflux Hyperglycemia Other abnormal glucose Primary hypertension Unspecified essential hypertension documented in this encounter [facility] note* Diagnosis Essential hypertension Unspecified essential hypertension [facility] Diagnosis [facility]conclusive mammogram [facility] Diagnosis Alcohol abuse- Primary Alcohol abuse, [...] of mild degree documented in this encounter [facility] note* Diagnosis History of colonic polyps- Primary Personal history of colonic polyps Chronic active hepatitis C (HCC) Gastroesophageal reflux disease, unspecified whether esophagitis present documented in this encounter [facility] note* Diagnosis Chronic active hepatitis C (HCC) documented in this encounter [facility] note* Diagnosis History of colonic polyps Personal history of colonic polyps [facility]* Diagnosis Radiculopathy, lumbar region- Primary Thoracic or lumbosacral neuritis or radiculitis, unspecified Spinal stenosis of lumbar region without neurogenic claudication Spinal stenosis, lumbar region, without neurogenic claudication Lumbar spondylosis Lumbosacral spondylosis without myelopathy Chronic bilateral low back pain without sciatica History of urinary urgency Personal history of other disorder of urinary system Cervical spondylosis without myelopathy documented in this encounter [facility] note* Diagnosis Cervical spondylosis without myelopathy- Primary Radiculopathy, lumbar region Thoracic or lumbosacral neuritis or radiculitis, unspecified Spinal stenosis, lumbar region, without neurogenic claudication Cervical spondylosis without myelopathy Cervical spondylosis without myelopathy [facility] Urge incontinence- Primary Stress incontinence, female Female stress incontinence Radiculopathy, lumbar region Thoracic or lumbosacral neuritis or radiculitis, unspecified Spinal stenosis, lumbar region, without neurogenic claudication Cervical spondylosis without myelopathy Cervical spondylosis without myelopathy [facility] Other chronic pain- Primary Radiculopathy, lumbar region Thoracic or lumbosacral neuritis or radiculitis, unspecified Spinal stenosis, lumbar region, without neurogenic claudication Cervical spondylosis without myelopathy Cervical spondylosis without myelopathy [facility] Diagnosis Closed fracture of upper extremity, unspecified laterality, initial encounter- Primary Radiculopathy, lumbar region Thoracic or lumbosacral neuritis or radiculitis, unspecified Spinal stenosis, lumbar region, without neurogenic claudication Cervical spondylosis without myelopathy Cervical spondylosis without myelopathy [facility] Diagnosis Vaginal discharge- Primary Leukorrhea, not specified as infective Cervical spondylosis without myelopathy Cervical spondylosis without myelopathy [facility] Cervical spondylosis without myelopathy- Primary Cervical spondylosis without myelopathy documented in [facility] Essential hypertension Unspecified essential hypertension Low serum potassium Hyperlipidemia, mixed Mixed hyperlipidemia Fibromyalgia Mylagia and myositis, unspecified Cervical spondylosis without myelopathy [facility] Cervical spondylosis without myelopathy- Primary [facility] Diagnosis Essential hypertension- Primary Unspecified essential [...] acquired Unspecified hypothyroidism [facility] Diagnosis Radiculopathy, lumbar region Thoracic or lumbosacral neuritis or radiculitis, unspecified Spinal stenosis, lumbar region, without neurogenic claudication [facility] Diagnosis Vitamin D deficiency Unspecified vitamin D deficiency [facility] Diagnosis Dehydration- Primary Postural dizziness with [...] Other speech disturbance [facility] Diagnosis Cervical spondylosis without myelopathy- Primary [facility] Diagnosis Chronic hepatitis C without hepatic coma (HCC)- Primary Chronic hepatitis C without mention of hepatic coma Cervical spondylosis without myelopathy Cervical spondylosis without myelopathy [facility] Diagnosis Chronic hepatitis C without hepatic coma (HCC)- Primary Chronic hepatitis C without mention of hepatic coma Gastroesophageal reflux disease, unspecified whether esophagitis present Cervical spondylosis without myelopathy Cervical spondylosis without myelopathy [facility] Diagnosis Radiculopathy, lumbar region Thoracic or lumbosacral neuritis or radiculitis, unspecified Cervical spondylosis without myelopathy [facility] Diagnosis Alcohol abuse, in remission- Primary [...] spondylosis without myelopathy [facility] Diagnosis Tobacco abuse Tobacco use disorder Cervical spondylosis without myelopathy [facility] Diagnosis Essential hypertension Unspecified essential hypertension [facility] Diagnosis Cognitive impairment- Primary Unspecified persistent mental disorders due to conditions classified elsewhere Alcohol abuse, in remission Nondependent alcohol abuse, in remission Polysubstance abuse (HCC) Other, mixed, or unspecified nondependent drug abuse, unspecified Polypharmacy Encounter for long-term (current) use of other medications [facility] Hospital discharge follow-up- Primary Other [...] of hepatic coma [facility] Diagnosis Vaginal discharge- Primary Leukorrhea, not specified as infective Screening examination for STD (sexually transmitted disease) Screening examination for venereal disease [facility] Diagnosis Chronic left-sided low back pain with sciatica, sciatica laterality unspecified- Primary Spinal stenosis of lumbar region without neurogenic claudication Spinal stenosis, lumbar region, without neurogenic claudication Lumbar spondylosis Lumbosacral spondylosis without myelopathy Fibromyalgia Mylagia and myositis, unspecified Other chronic pain [facility] Diagnosis Spinal stenosis of lumbar region without neurogenic claudication Spinal stenosis, lumbar region, without neurogenic claudication [facility] Diagnosis Radiculopathy, lumbar region Thoracic or lumbosacral neuritis or radiculitis, unspecified [facility] Diagnosis COPD (chronic obstructive pulmonary disease) with chronic bronchitis (HCC)- Primary Obstructive chronic bronchitis without exacerbation [facility] Diagnosis Radiculopathy, lumbar region Thoracic or lumbosacral neuritis or radiculitis, unspecified [facility] Diagnosis Hyperlipidemia, mixed Mixed hyperlipidemia Fibromyalgia Mylagia and myositis, unspecified Stress incontinence Female stress incontinence Alcohol abuse, in remission Nondependent alcohol abuse, in remission Chronic hepatitis C without hepatic coma (HCC) Chronic hepatitis C without mention of hepatic coma Memory impairment Memory loss Iron deficiency anemia, unspecified iron deficiency anemia type documented [facility] Diagnosis Cognitive impairment, mild, so stated- [...] or radiculitis, unspecified [facility] Diagnosis Vitamin D deficiency Unspecified vitamin D deficiency [facility] Diagnosis Cognitive impairment- Primary Unspecified persistent mental disorders due to conditions classified elsewhere Alcohol abuse, in remission Nondependent alcohol abuse, in remission Polysubstance abuse (HCC) Other, mixed, or unspecified nondependent drug abuse, unspecified Polypharmacy Encounter for long-term (current) use of other medications [facility] Diagnosis Chronic left-sided low back pain with sciatica, sciatica laterality unspecified- Primary DDD (degenerative disc disease), lumbar Degeneration of lumbar or lumbosacral intervertebral disc Lumbar spondylosis Lumbosacral spondylosis without myelopathy Gait instability Abnormality of gait Weight loss Loss of weight [facility] Diagnosis Lumbar spondylosis- Primary Lumbosacral spondylosis without myelopathy Cervical spondylosis without myelopathy Spinal stenosis of lumbar region without neurogenic claudication Spinal stenosis, lumbar region, without neurogenic claudication Myofascial pain Mylagia and myositis, unspecified [facility] Diagnosis Mastodynia of left breast- Primary Dense breast tissue Vaginal discharge Leukorrhea, not specified as infective Vaginal odor Unspecified symptom associated with female genital organs [facility]* Diagnosis Hypertension, essential- Primary Unspecified essential hypertension [facility]* Diagnosis Primary hypertension- Primary Unspecified essential hypertension Unspecified essential hypertension [facility]* Diagnosis Cognitive impairment- Primary Unspecified persistent [...] depression type Hallucinations [facility]* Diagnosis Displacement of lumbar intervertebral disc without myelopathy- Primary Radiculopathy, lumbar region Thoracic or lumbosacral neuritis or radiculitis, unspecified [facility]* Diagnosis Displacement of lumbar intervertebral disc without myelopathy- Primary Radiculopathy, lumbar region Thoracic or lumbosacral neuritis or radiculitis, unspecified Displacement of lumbar intervertebral disc without myelopathy Radiculopathy, lumbar region Thoracic or lumbosacral neuritis or radiculitis, unspecified [facility]* Diagnosis Hyperlipidemia, mixed Mixed hyperlipidemia Fibromyalgia [...] or radiculitis, unspecified [facility]* Diagnosis Vitamin D deficiency Unspecified vitamin D deficiency [facility] Diagnosis Fibrocystic breast changes, bilateral- Primary Mastodynia of left breast Dense breast tissue Family history of breast cancer Family history of malignant neoplasm of breast Family history of ovarian cancer Family history of malignant neoplasm of ovary [facility] Diagnosis Lumbar radiculopathy- Primary Thoracic or lumbosacral neuritis or radiculitis, unspecified Primary osteoarthritis of right hip Primary localized osteoarthrosis, pelvic region and thigh [facility]* Diagnosis Primary osteoarthritis of right hip- Primary Primary localized osteoarthrosis, pelvic region and thigh Lumbar radiculopathy Thoracic or lumbosacral neuritis or radiculitis, unspecified [facility]* Diagnosis Breast pain Mastodynia [facility]* Diagnosis Transient cerebral ischemia, unspecified type Balance problem Other symptoms involving nervous and musculoskeletal systems Falls frequently Personal history of fall [facility] Diagnosis Breast pain Mastodynia documented in this encounter [facility]* Diagnosis Weakness of both hands- Primary Numbness and tingling in both hands Complaining of cold hands [facility] Diagnostic Procedure Only (Routine) - Authorized Specialty Diagnoses / Procedures Referred By Lauraac t Referred To Contact BR IMAGING Diagnoses Abnormal mammogram Procedures US BREAST LTD LT US BREAST UNI REAL TIME WITH IMAGE LIMITED Mitul Abbott MD [facility] [place] [address] [facility] [address] [place] [address] Referral ID Status Reason Start Date Expiration Date Visits Requested Visits Authorized [id number] Authorized Auto-Generat ed Referral 10/02/2021 11/01/2022 1 1 * Diagnostic Procedure Only (Routine) - Authorized Specialty Diagnoses / Procedures Referred By Contac t Referred To Contact [facility] IMAG[facility] Diagnoses Abnormal mammogram Procedures US BREAST LTD RT US BREAST UNI REAL TIME WITH IMAGE LIMITED Mitul Abbott MD [facility] [place] [address] [facility] [address] [place] [address] Referral ID Status Reason Start Date Expiration Date Visits Requested Visits Authorized [id number] Authorized Auto-Generat ed Referral 10/02/2021 11/01/2022 1 1 * Diagnostic Procedure Only (Routine) - Authorized Specialty Diagnoses / Procedures Referred By Contac t Referred To Contact BR IMAG[facility] Diagnoses Abnormal mammogram Procedures SHILOH DIAGNOSTIC BILAT DIAGNOSTIC MAMMOGRAPHY COMPUTER-AIDED DETCJ BI Mitul Abbott MD [address] [id number] [facility] [address] [place] [address] Referral ID Status Reason Start Date Expiration Date Visits Requested Visits Authorized [id number] Authorized Auto-Generat ed Referral 10/02/2021 11/01/2022 1 1 [facility] for referral (narrative)* Diagnostic Procedure Only (Routine) - Pending Review Specialty Diagnoses / Procedures Referred By Contac t Referred To Contact BR IMAGING Diagnoses Inconclusive mammogram Procedures US BREAST LTD RT US BREAST UNI REAL TIME WITH IMAGE LIMITED Jaimee Palomares PA-C [address] [place] [address] [facility] [address] [place] [address] Referral ID Status Reason Start Date Expiration Date Visits Requested Visits Authorized [id number] Pending Review Auto-Generat ed Referral 10/04/2021 11/03/2022 1 1 * Diagnostic Procedure Only (Routine) - Pending Review Specialty Diagnoses / Procedures Referred By Contac t Referred To Contact BR IMAGING Diagnoses Inconclusive mammogram Procedures US BREAST LTD LT US BREAST UNI REAL TIME WITH IMAGE LIMITED Jaimee Palomares PA-C [address] [place] [address] [facility] [address] [place] [address] Referral ID Status Reason Start Date Expiration Date Visits Requested Visits Authorized [id number] Pending Review Auto-Generat ed Referral 10/04/2021 11/03/2022 1 1 * Diagnostic Procedure Only (Routine) - Pending Review Specialty Diagnoses / Procedures Referred By Contac t Referred To Contact BR IMAGING Diagnoses Inconclusive mammogram Procedures SHILOH DIAGNOSTIC BILAT DIAGNOSTIC MAMMOGRAPHY COMPUTER-AIDED DETCJ BI Jaimee Palomares PA-C [address] [place] [address] [facility] [address] [place] [address] Referral ID Status Reason Start Date Expiration Date Visits Requested Visits Authorized [id number] Pending Review Auto-Generat ed Referral 10/04/2021 11/03/2022 1 1 [facility] for referral (narrative)* Diagnostic Procedure Only (Routine) - Closed Specialty Diagnoses / Procedures Referred By Contac t Referred To Contact XR IMAGING Diagnoses Cervicalgia Procedures XR CERV OTHER 4V AP/LAT/OBL RADEX SPINE CERVICAL 4 OR 5 VIEWS Jaimee Palomares PA-C [address] [place] [address] Xr Imaging Referral ID Status Reason Start Date Expiration Date V isits Requested Visits Authorized [id number] Closed Auto-Generate d Referral 11/12/2021 12/12/2022 1 1 * Consult, Test, Treat (Routine) - Authorized Specialty Diagnoses / Procedures Referred By Contac t Referred To Contact General Surgery Diagnoses Screening for colon cancer Procedures CONSULT TO GENERAL SURGERY OFFICE/OUTPATIENT NEW HIGH MDM 60-74 MINUTES Jaimee Palomares PA-C [address] [place] [address] Referral ID Status Reason Start Date Expiration Date Visits Requested Visits Authorized [id number] Authorized PCP Requested Referral 11/12/2021 11/12/2022 1 1 * Physical Therapy (Routine) - Pending Review Specialty Diagnoses / Procedures Referred By Contac t Referred To Contact [facility] Diagnoses Stress incontinence Procedures CONSULT TO PHYSICAL THERAPY PHYSICAL THERAPY EVALUATION HIGH COMPLEX 45 MINS Jaimee Palomares PA-C [address] [place] [address] [facility] [place] [id number] Referral ID Status Reason Start Date Expiration Date Visits Requested Visits Authorized [id number] Pending Review Auto-Generat ed Referral 11/12/2021 11/12/2022 1 1 [facility] for referral (narrative)* Outpatient Procedure (Routine) - Authorized Specialty Diagnoses / Procedures Referred By Contac t Referred To Contact [facility] Diagnoses History of colonic polyps Procedures COLONOSCOPY DIAGNOSTIC COLONOSCOPY FLX DX W/COLLJ SPEC WHEN PFRMD Josué Blevins MD [address] [facility] [place] [address] [address] Referral ID Status Reason Start Date Expiration Date Visits Requested Visits Authorized [id number] Authorized Auto-Generat ed Referral 11/23/2021 11/23/2022 1 1 * Diagnostic Procedure Only (Routine) - Authorized Specialty Diagnoses / Procedures Referred By Contac t Referred To Contact US IMAGING Diagnoses Chronic active hepatitis C (HCC) Procedures US ABD RT UPPER QUADRANT US ABDOMINAL REAL TIME W/IMAGE LIMITED Josué Blevins MD [address] [facility] [place] [address] Us Imaging Referral ID Status Reason Start Date Expiration Date Visits Requested Visits Authorized [id number] Authorized Auto-Generat ed Referral 11/23/2021 12/23/2022 1 1 * Outpatient Procedure (Routine) - Pending Review Specialty Diagnoses / Procedures Referred By Yana cartwright Referred To Contact [facility] Diagnoses Chronic active hepatitis C (HCC) Procedures DDI VIBRATION CONTROLLED TRANSIENT ELASTOGRAPHY (VCTE) LIVER ELASTOGRAPHY W/O IMAG W/I&R Josué Blevins MD [address] [facility] [place] [address] [facility] [address] [place] [address] Referral ID Status Reason Start Date Expiration Date Visits Requested Visits Authorized [id number] Pending Review Auto-Generat ed Referral 11/23/2021 11/23/2022 1 1 [facility] for referral (narrative)* Diagnostic Procedure Only (Routine) - Closed Specialty Diagnoses / Procedures Referred By Yana cartwright Referred To Contact US IMAGING Diagnoses Chronic active hepatitis C (HCC) Procedures US ABD RT UPPER QUADRANT US ABDOMINAL REAL TIME W/IMAGE LIMITED Josué Blevins MD [address] [facility] [place] [address] Us Imaging Referral ID Status Reason Start Date Expiration Date V isits Requested Visits Authorized [id number] Closed Auto-Generate d Referral 11/23/2021 12/23/2022 1 1 [facility] for referral (narrative)* Outpatient Procedure (Routine) - Closed Specialty Diagnoses / Procedures Referred By Yana cartwright Referred To Contact [facility] Diagnoses History of colonic polyps Procedures COLONOSCOPY DIAGNOSTIC COLONOSCOPY FLX DX W/COLLJ SPEC WHEN PFRMD Josué Blevins MD [address] [facility] [place] [address] [facility] [address] [place] [address] Referral ID Status Reason Start Date Expiration Date V isits Requested Visits Authorized [id number] Closed Auto-Generate d Referral 11/23/2021 11/23/2022 1 1 [facility] for referral (narrative)* - Pending Review Specialty Diagnoses / Procedures Referred By Contac t Referred To Contact Physical Therapy Diagnoses Spinal stenosis of lumbar region without neurogenic claudication Procedures CONSULT TO PHYSICAL THERAPY Shira Kam, CASE WORKER.FITTER / WELDER [address] [place] [address] Referral ID Status Reason Start Date Expiration Date V isits Requested Visits Authorized [id number] Pending Review 06/03/2022 09/01/2022 1 1 [facility] for referral (narrative)* Diagnostic Procedure Only (Routine) - Closed Specialty Diagnoses / Procedures Referred By Contac t Referred To Contact [facility] Diagnoses Breast pain Procedures US BREAST LTD LT US BREAST UNI REAL TIME WITH IMAGE LIMITED Memo Huber MD [address] [place] [address] [facility] [address] [facility] [address] Referral ID Status Reason Start Date Expiration Date V isits Requested Visits Authorized [id number] Closed Auto-Generate d Referral 07/29/2022 08/28/2023 1 1 [facility] for visit Narrative* Diagnostic Procedure Only (Routine) - Closed Specialty Diagnoses / Procedures Referred By Contac t Referred To Contact BR [facility] Diagnoses Inconclusive mammogram Procedures SHILOH DIAGNOSTIC BILAT DIAGNOSTIC MAMMOGRAPHY COMPUTER-AIDED DETCJ BI Jaimee Palomares PA-C [address] [place] [address] [facility] [address] [place] [place] [address] Referral ID Status Reason Start Date Expiration Date V isits Requested Visits Authorized [id number] Closed Auto-Generate d Referral 10/04/2021 11/03/2022 1 1 [facility] for visit Narrative* Diagnostic Procedure Only (Routine) - Closed Specialty Diagnoses / Procedures Referred By Contac t Referred To Contact US IMAGING Diagnoses Chronic active hepatitis C (HCC) Procedures US ABD RT UPPER QUADRANT US ABDOMINAL REAL TIME W/IMAGE LIMITED Josué Blevins MD [address] [facility] [place] [address] Us Imaging Referral ID Status Reason Start Date Expiration Date V isits Requested Visits Authorized [id number] Closed Auto-Generate d Referral 11/23/2021 12/23/2022 1 1 [facility] for visit Narrative* Outpatient Procedure (Routine) - Closed Specialty Diagnoses / Procedures Referred By Contac t Referred To Contact [facility] Diagnoses History of colonic polyps Procedures COLONOSCOPY DIAGNOSTIC COLONOSCOPY FLX DX W/COLLJ SPEC WHEN PFRMD Josué Blevins MD [address] [facility] [place] [address] [facility] [address] [place] [address] Referral ID Status Reason Start Date Expiration Date V isits Requested Visits Authorized [id number] Closed Auto-Generate d Referral 11/23/2021 11/23/2022 1 1 [facility] for visit Narrative* Auth/Cert Specialty Diagnoses / Procedures Referred By Lauraac t Referred To Contact Diagnoses Radiculopathy, lumbar region Spinal stenosis, lumbar region, without neurogenic claudication Radiculopathy, lumbar region [M54.16] Spinal stenosis, lumbar region, without neurogenic claudication [M48.061] Procedures NJX AA&/STRD TFRML EPI LUMBAR/SACRAL 1 LEVEL INJECTION ANESTHETIC AGENT/STEROID TRANSFORAMINAL EPIDURAL W/ IMAGING GUIDANCE LUMBAR BILATERAL [facility] [address] [place] [address] Referral ID Status Reason Start Date Expiration Date Visits Re quested Visits Authorized [id number] 1 1 [facility] for visit Narrative* Diagnostic Procedure Only (Routine) - Closed Specialty Diagnoses / Procedures [facility] To [facility] Diagnoses Breast pain Procedures SHILOH DIAGNOSTIC BILAT DIAGNOSTIC MAMMOGRAPHY COMPUTER-AIDED DETCJ BI Memo Huber MD [address] [place] [address] [facility] [address] [place] [address] Referral ID Status Reason Start Date Expiration Date V isits Requested Visits Authorized [id number] Closed Auto-Generate d Referral 07/29/2022 08/28/2023 1 1 [facility] Summary Purpose Family History No Family History Records FoundNo Family History Records FoundNo Family History Records FoundNo Family History Records Found Advance Directives No Advanced Directives Records FoundDocuments on File Type Date Recorded Patient Special Services Director Expl anation Advance Directive(s) 10/12/2018 8:00 AM [...] Documents on File Type Date Recorded Patient Special Services Director Expl anation Advance Directive(s) 10/12/2018 8:00 AM [...] Documents on File Type Date Recorded Patient Special Services Director Expl anation Advance Directive(s) 11/27/2021 2:06 PM [...] Documents on File Type Date Recorded Patient Special Services Director Expl anation Advance Directive(s) 11/27/2021 2:06 PM [...] Referral Specialty Diagnoses / Procedures Referred By Yana cartwright Referred To Contact Jaimee Palomares PA-C [address] [place] [address] Referral ID Status Reason Start Date Expiration Date V isits Requested Visits Authorized [id number] Pending Review 1 1 Referral ID Status Reason Start Date Expiration Date V isits Requested Visits Authorized [id number] Pending Review 1 1 Specialty Diagnoses / Procedures Referred By Contac t Referred To Contact Diagnoses Radiculopathy, lumbar region Spinal stenosis of lumbar region without neurogenic claudication Procedures [facility] Denice Gr, CASE WORKER.FITTER / WELDER [address] [place] [address] [facility] [address] [id number] Referral ID Status Reason Start Date Expiration Date Visits Requested Visits Authorized [id number] Authorized PCP Requested Referral 12/09/2021 03/09/2022 1 1 Specialty Diagnoses / Procedures Referred By Contac t Referred To Contact Urology Diagnoses History of urinary urgency Procedures CONSULT TO UROLOGY OFFICE/OUTPATIENT [facility] MDM 60-74 MINUTES Denice Gr, CASE WORKER.FITTER / WELDER [address] [place] [address] Referral ID Status Reason Start Date Expiration Date Visits Requested Visits Authorized [id number] Authorized PCP Requested Referral 12/09/2021 12/09/2022 1 1 Specialty Diagnoses / Procedures Referred By Contac t Referred To Contact Diagnoses Other chronic pain Procedures CON[facility] Denice Gr, CASE WORKER.FITTER / WELDER [address] [place] [address] [facility] [address] [place] [address] Referral ID Status Reason Start Date Expiration Date V isits Requested Visits Authorized [id number] Closed PCP Requested Referral 01/04/2022 04/04/2022 1 1 Specialty Diagnoses / Procedures Referred By Contac t Referred To Contact MR IMAGING Diagnoses Cognitive impairment, mild, so stated Memory impairment Slurred speech Procedures MRI BRAIN WO IVCON MRI BRAIN BRAIN STEM W/O CONTRAST MATERIAL Jaimee Palomares PA-C [address] [place] [address] Mr Imaging Referral ID Status Reason Start Date Expiration Date Visits Requested Visits Authorized [id number] Pending Review Auto-Generat ed Referral 02/27/2022 03/29/2023 1 1 Specialty Diagnoses / Procedures Referred By Contac t Referred To Contact Neurology Diagnoses Memory impairment Chronic hepatitis C without hepatic coma (HCC) Alcohol abuse, in remission Procedures CONSULT TO NEUROLOGY OFFICE/OUTPATIENT [facility] 60-74 MINUTES Jaimee Palomares PA-C [address] [place] [address] Referral ID Status Reason Start Date Expiration Date Visits Requested Visits Authorized [id number] Authorized PCP Requested Referral 02/25/2022 02/25/2023 1 1 Specialty Diagnoses / Procedures Referred By Contac t Referred To Contact CT IMAGING Diagnoses Lung nodules Procedures CT CHEST WO IVCON DIAGNOSTIC COMPUTED TOMOGRAPHY THORAX W/O CNTRST Jaimee Palomares PA-C [address] [place] [address] Ct Imaging Referral ID Status Reason Start Date Expiration Date Visits Requested Visits Authorized [id number] Pending Review Auto-Generat ed Referral 06/13/2023 1 1 Specialty Diagnoses / Procedures Referred By Contac t Referred To Contact Memo Huber MD [address] [place] [address] Referral ID Status Reason Start Date Expiration Date Visits Re quested Visits Authorized [id number] Closed 1 1 Referral ID Status Reason Start Date Expiration Date Visits Re quested Visits Authorized [id number] Closed 1 1 Specialty Diagnoses / Procedures Referred By Contac t Referred To Contact Breast Diseases Diagnoses Mastodynia of left breast Dense breast tissue Procedures CONSULT TO BREAST CENTER OFFICE/OUTPATIENT [facility] 60-74 MINUTES Jenifer [place] [address] Referral ID Status Reason Start Date Expiration Date Visits Requested Visits Authorized [id number] Authorized PCP Requested Referral 10/20/2022 10/20/2023 1 1 Specialty Diagnoses / Procedures Referred By Contac t Referred To Contact MR IMAGING Diagnoses Transient cerebral ischemia, unspecified type Balance problem Falls frequently Procedures MRI BRAIN WO IVCON MRI BRAIN BRAIN STEM W/O CONTRAST MATERIAL Urvashi Hughes, CASE WORKER.FITTER / WELDER [address] [place] [address] Mr Imaging Referral ID Status Reason Start Date Expiration Date Visits Requested Visits Authorized [id number] Pending Review Auto-Generat ed Referral 12/16/2022 01/15/2024 1 1 Specialty Diagnoses / Procedures Referred By Contac t Referred To Contact [facility] Diagnoses Cognitive impairment Hallucinations Procedures EPIL EEG ROUTINE ELECTROENCEPHALOGRAM REC COMA/SLEEP ONLY Urvashi Hughes, CASE WORKER.FITTER / WELDER [address] [place] [address] [address] Referral ID Status Reason Start Date Expiration Date Visits Requested Visits Authorized [id number] Authorized Auto-Generat ed Referral 12/16/2022 12/17/2023 1 1 Specialty Diagnoses / Procedures Referred By Contac t Referred To Contact Diagnoses Alcohol abuse, in remission Polysubstance abuse (HCC) Depression, unspecified depression type Procedures CONSULT TO PSYCHIATRY OFFICE/OUTPATIENT [facility] 60-74 MINUTES Urvashi Hughes, CASE WORKER.FITTER / WELDER [address] [place] [address] Referral ID Status Reason Start Date Expiration Date Visits Requested Visits Authorized [id number] Pending Review PCP Requested Referral 12/16/2022 12/16/2023 1 1 Referral ID Status Reason Start Date Expiration Date Visits Re quested Visits Authorized [id number] Closed 1 1 Specialty Diagnoses / Procedures Referred By Contac t Referred To Contact Diagnoses Family history of breast cancer Family history of ovarian cancer Procedures CONSULT TO MEDICAL GENETICS - CANCER MEDICAL GENETICS COUNSELING EACH 30 MINUTES Agustina Brown PA-C [address] [facility] [place] [address] [facility] [address] [place] [address] Referral ID Status Reason Start Date Expiration Date Visits Requested Visits Authorized [id number] Authorized PCP Requested Referral Auto-Generate d Referral 02/14/2023 02/14/2024 1 1 Specialty Diagnoses / Procedures Referred By Contac t Referred To Contact [facility] Diagnoses Primary osteoarthritis of right hip Lumbar radiculopathy Procedures PT AQUATIC REHAB FOLLOW UP ORDER THER PX 1/> AREAS EACH 15 MIN AQUA THER W/XERSS Pt c Bath [address] [place] [address] [facility] [address] [place] [id number] Referral ID Status Reason Start Date Expiration Date Visits Requested Visits Authorized [id number] Pending Review PCP Requested Referral Auto-Generate d Referral 02/16/2023 05/17/2023 1 1 Specialty Diagnoses / Procedures Referred By Contac t Referred To Contact MR IMAGING Diagnoses Transient cerebral ischemia, unspecified type Balance problem Falls frequently Procedures MRI BRAIN WO IVCON MRI BRAIN BRAIN STEM W/O CONTRAST MATERIAL Urvashi Hughes, CASE WORKER.FITTER / WELDER [address] [place] [address] [facility] Referral ID Status Reason Start Date Expiration Date V isits Requested Visits Authorized [id number] Closed Auto-Generate d Referral 01/12/2023 03/13/2023 1 1 Specialty Diagnoses / Procedures Referred By Contac t Referred To Contact MR IMAGING Diagnoses Weakness of both hands Numbness and tingling in both hands Complaining of cold hands Procedures MRI CERVICAL SPINE WO IVCON MRI SPINAL CANAL CERVICAL W/O CONTRAST MATRL Flo Martino MD [address] [place] [address] [facility] Referral ID Status Reason Start Date Expiration Date V isits Requested Visits Authorized [id number] Open Auto-Generate d Referral 05/10/2023 06/08/2024 1 1 Specialty Diagnoses / Procedures Referred By Contac t Referred To Contact [facility] Diagnoses Complaining of cold hands Procedures US ARM ARTERIAL [facility] DUP-SCAN UXTR ART/ARTL BPGS COMPL BI STUDY Flo Martino MD [address] [place] [address] [facility] [address] [place] [address] Referral ID Status Reason Start Date Expiration Date Visits Requested Visits Authorized [id number] Authorized Auto-Generat ed Referral 3 05/09/2024 1 1 Specialty Diagnoses / Procedures Referred By Contact Referred To Contact [facility] Diagnoses Weakness of both hands Numbness and tingling in both hands Procedures EMG(NEURO/NI) NERVE CONDUCTION STUDIES 9-10 STUDIES Flo Martino MD [address] [place] [address] Neurological [facility] [address] [place] [address] Referral ID Status Reason Start Date Expiration Date Visits Requested Visits Authorized [id number] Authorized Auto-Generat ed Referral 3 05/10/2024 1 1 Additional Source Comments INFORMATION SOURCE (unrecogn ized section and content) DATE CREATED AUTHOR AUTHOR'S ORGANIZ ATION 05/25/2019 [facility] DATE CREATED AUTHOR AUTHOR'S ORGANIZ ATION 05/29/2023 [facility] DATE CREATED AUTHOR AUTHOR'S ORGANIZ ATION 06/22/2023 [facility] Source Comments (unrecognize d section and content) In the event this informatio n is protected by the Federal Confidentiality of Alcohol and Drug Abuse Patient Records regulations: The Federal rules restrict any use of the information to criminally investigate or prosecute any alcohol or drug abuse patient.[facility] the event this information is protected by the Federal Confidentiality of Alcohol and Drug Abuse Patient Records regulations: The Federal rules restrict any use of the information to criminally investigate or prosecute any alcohol or drug abuse patient.[facility]In the event this information is protected by the Federal Confidentiality of Alcohol and Drug Abuse Patient Records regulations: The Federal rules restrict any use of the information to criminally investigate or prosecute any alcohol or drug abuse patient.[facility]In the event this information is protected by the Federal Confidentiality of Alcohol and Drug Abuse Patient Records regulations: The Federal rules restrict any use of the information to criminally investigate or prosecute any alcohol or drug abuse patient.[facility] CenterIn the event this information is protected by the Federal Confidentiality of Alcohol and Drug Abuse Patient Records regulations: The Federal rules restrict any use of the information to criminally investigate or prosecute any alcohol or drug abuse patient.[facility]In the event this information is protected by the Federal Confidentiality of Alcohol and Drug Abuse Patient Records regulations: The Federal rules restrict any use of the information to criminally investigate or prosecute any alcohol or drug abuse patient.[facility]In the event this information is protected by the Federal Confidentiality of Alcohol and Drug Abuse Patient Records regulations: The Federal rules restrict any use of the information to criminally investigate or prosecute any alcohol or drug abuse patient.[facility] CenterIn the event this information is protected by the Federal Confidentiality of Alcohol and Drug Abuse Patient Records regulations: The Federal rules restrict any use of the information to criminally investigate or prosecute any alcohol or drug abuse patient.[facility] CenterIn the event this information is protected by the Federal Confidentiality of Alcohol and Drug Abuse Patient Records regulations: The Federal rules restrict any use of the information to criminally investigate or prosecute any alcohol or drug abuse patient.[facility] CenterIn the event this information is protected by the Federal Confidentiality of Alcohol and Drug Abuse Patient Records regulations: The Federal rules restrict any use of the information to criminally investigate or prosecute any alcohol or drug abuse patient.[facility] the event this information is protected by the Federal Confidentiality of Alcohol and Drug Abuse Patient Records regulations: The Federal rules restrict any use of the information to criminally investigate or prosecute any alcohol or drug abuse patient.[facility]In the event this information is protected by the Federal Confidentiality of Alcohol and Drug Abuse Patient Records regulations: The Federal rules restrict any use of the information to criminally investigate or prosecute any alcohol or drug abuse patient.[facility] CenterIn the event this information is protected by [...] or prosecute any alcohol or drug abuse patient.[facility] CenterIn the event this information is protected by the Federal Confidentiality of Alcohol and Drug Abuse Patient Records regulations: The Federal rules restrict any use of the information to criminally investigate or prosecute any alcohol or drug abuse patient.[facility]In the event this information is protected by the Federal Confidentiality of Alcohol and Drug Abuse Patient Records regulations: The Federal rules restrict any use of the information to criminally investigate or prosecute any alcohol or drug abuse patient.[facility] CenterIn the event this information is protected by the Federal Confidentiality of Alcohol and Drug Abuse Patient Records regulations: The Federal rules restrict any use of the information to criminally investigate or prosecute any alcohol or drug abuse patient.[facility]In the event this information is protected by the Federal Confidentiality of Alcohol and Drug Abuse Patient Records regulations: The Federal rules restrict any use of the information to criminally investigate or prosecute any alcohol or drug abuse patient.[facility] CenterIn the event this information is protected by the Federal Confidentiality of Alcohol and Drug Abuse Patient Records regulations: The Federal rules restrict any use of the information to criminally investigate or prosecute any alcohol or drug abuse patient.[facility] CenterIn the event this information is protected by the Federal Confidentiality of Alcohol and Drug Abuse Patient Records regulations: The Federal rules restrict any use of the information to criminally investigate or prosecute any alcohol or drug abuse patient.[facility]In the event this information is protected by the Federal Confidentiality of Alcohol and Drug Abuse Patient Records regulations: The Federal rules restrict any use of the information to criminally investigate or prosecute any alcohol or drug abuse patient.[facility] CenterIn the event this information is protected by the Federal Confidentiality of Alcohol and Drug Abuse Patient Records regulations: The Federal rules restrict any use of the information to criminally investigate or prosecute any alcohol or drug abuse patient.[facility]In the event this information is protected by the Federal Confidentiality of Alcohol and Drug Abuse Patient Records regulations: The Federal rules restrict any use of the information to criminally investigate or prosecute any alcohol or drug abuse patient.[facility]In the event this information is protected by the Federal Confidentiality of Alcohol and Drug Abuse Patient Records regulations: The Federal rules restrict any use of the information to criminally investigate or prosecute any alcohol or drug abuse patient.[facility]In the event this information is protected by the Federal Confidentiality of Alcohol and Drug Abuse Patient Records regulations: The Federal rules restrict any use of the information to criminally investigate or prosecute any alcohol or drug abuse patient.[facility]In the event this information is protected by the Federal Confidentiality of Alcohol and Drug Abuse Patient Records regulations: The Federal rules restrict any use of the information to criminally investigate or prosecute any alcohol or drug abuse patient.[facility]In the event this information is protected by the Federal Confidentiality of Alcohol and Drug Abuse Patient Records regulations: The Federal rules restrict any use of the information to criminally investigate or prosecute any alcohol or drug abuse patient.[facility]In the event this information is protected by the Federal Confidentiality of Alcohol and Drug Abuse Patient Records regulations: The Federal rules restrict any use of the information to criminally investigate or prosecute any alcohol or drug abuse patient.[facility]In the event this information is protected by the Federal Confidentiality of Alcohol and Drug Abuse Patient Records regulations: The Federal rules restrict any use of the information to criminally investigate or prosecute any alcohol or drug abuse patient.[facility]In the event this information is protected by the Federal Confidentiality of Alcohol and Drug Abuse Patient Records regulations: The Federal rules restrict any use of the information to criminally investigate or prosecute any alcohol or drug abuse patient.[facility]In the event this information is protected by the Federal Confidentiality of Alcohol and Drug Abuse Patient Records regulations: The Federal rules restrict any use of the information to criminally investigate or prosecute any alcohol or drug abuse patient.[facility]In the event this information is protected by the Federal Confidentiality of Alcohol and Drug Abuse Patient Records regulations: The Federal rules restrict any use of the information to criminally investigate or prosecute any alcohol or drug abuse patient.[facility]In the event this information is protected by the Federal Confidentiality of Alcohol and Drug Abuse Patient Records regulations: The Federal rules restrict any use of the information to criminally investigate or prosecute any alcohol or drug abuse patient.[facility]In the event this information is protected by the Federal Confidentiality of Alcohol and Drug Abuse Patient Records regulations: The Federal rules restrict any use of the information to criminally investigate or prosecute any alcohol or drug abuse patient.[facility]In the event this information is protected by the Federal Confidentiality of Alcohol and Drug Abuse Patient Records regulations: The Federal rules restrict any use of the information to criminally investigate or prosecute any alcohol or drug abuse patient.[facility]In the event this information is protected by the Federal Confidentiality of Alcohol and Drug Abuse Patient Records regulations: The Federal rules restrict any use of the information to criminally investigate or prosecute any alcohol or drug abuse patient.[facility]In the event this information is protected by the Federal Confidentiality of Alcohol and Drug Abuse Patient Records regulations: The Federal rules restrict any use of the information to criminally investigate or prosecute any alcohol or drug abuse patient.[facility]In the event this information is protected by the Federal Confidentiality of Alcohol and Drug Abuse Patient Records regulations: The Federal rules restrict any use of the information to criminally investigate or prosecute any alcohol or drug abuse patient.[facility]In the event this information is protected by the Federal Confidentiality of Alcohol and Drug Abuse Patient Records regulations: The Federal rules restrict any use of the information to criminally investigate or prosecute any alcohol or drug abuse patient.[facility]In the event this information is protected by the Federal Confidentiality of Alcohol and Drug Abuse Patient Records regulations: The Federal rules restrict any use of the information to criminally investigate or prosecute any alcohol or drug abuse patient.[facility]In the event this information is protected by the Federal Confidentiality of Alcohol and Drug Abuse Patient Records regulations: The Federal rules restrict any use of the information to criminally investigate or prosecute any alcohol or drug abuse patient.[facility]In the event this information is protected by the Federal Confidentiality of Alcohol and Drug Abuse Patient Records regulations: The Federal rules restrict any use of the information to criminally investigate or prosecute any alcohol or drug abuse patient.[facility]In the event this information is protected by the Federal Confidentiality of Alcohol and Drug Abuse Patient Records regulations: The Federal rules restrict any use of the information to criminally investigate or prosecute any alcohol or drug abuse patient.[facility] CenterIn the event this information is protected by the Federal Confidentiality of Alcohol and Drug Abuse Patient Records regulations: The Federal rules restrict any use of the information to criminally investigate or prosecute any alcohol or drug abuse patient.[facility] CenterIn the event this information is protected by the Federal Confidentiality of Alcohol and Drug Abuse Patient Records regulations: The Federal rules restrict any use of the information to criminally investigate or prosecute any alcohol or drug abuse patient.[facility]In the event this information is protected by the Federal Confidentiality of Alcohol and Drug Abuse Patient Records regulations: The Federal rules restrict any use of the information to criminally investigate or prosecute any alcohol or drug abuse patient.[facility]In the event this information is protected by the Federal Confidentiality of Alcohol and Drug Abuse Patient Records regulations: The Federal rules restrict any use of the information to criminally investigate or prosecute any alcohol or drug abuse patient.[facility]In the event this information is protected by the Federal Confidentiality of Alcohol and Drug Abuse Patient Records regulations: The Federal rules restrict any use of the information to criminally investigate or prosecute any alcohol or drug abuse patient.[facility]In the event this information is protected by the Federal Confidentiality of Alcohol and Drug Abuse Patient Records regulations: The Federal rules restrict any use of the information to criminally investigate or prosecute any alcohol or drug abuse patient.[facility]In the event this information is protected by the Federal Confidentiality of Alcohol and Drug Abuse Patient Records regulations: The Federal rules restrict any use of the information to criminally investigate or prosecute any alcohol or drug abuse patient.[facility]In the event this information is protected by the Federal Confidentiality of Alcohol and Drug Abuse Patient Records regulations: The Federal rules restrict any use of the information to criminally investigate or prosecute any alcohol or drug abuse patient.[facility]In the event this information is protected by the Federal Confidentiality of Alcohol and Drug Abuse Patient Records regulations: The Federal rules restrict any use of the information to criminally investigate or prosecute any alcohol or drug abuse patient.[facility]In the event this information is protected by the Federal Confidentiality of Alcohol and Drug Abuse Patient Records regulations: The Federal rules restrict any use of the information to criminally investigate or prosecute any alcohol or drug abuse patient.[facility]In the event this information is protected by the Federal Confidentiality of Alcohol and Drug Abuse Patient Records regulations: The Federal rules restrict any use of the information to criminally investigate or prosecute any alcohol or drug abuse patient.[facility]In the event this information is protected by the Federal Confidentiality of Alcohol and Drug Abuse Patient Records regulations: The Federal rules restrict any use of the information to criminally investigate or prosecute any alcohol or drug abuse patient.[facility]In the event this information is protected by the Federal Confidentiality of Alcohol and Drug Abuse Patient Records regulations: The Federal rules restrict any use of the information to criminally investigate or prosecute any alcohol or drug abuse patient.[facility]In the event this information is protected by the Federal Confidentiality of Alcohol and Drug Abuse Patient Records regulations: The Federal rules restrict any use of the information to criminally investigate or prosecute any alcohol or drug abuse patient.[facility]In the event this information is protected by the Federal Confidentiality of Alcohol and Drug Abuse Patient Records regulations: The Federal rules restrict any use of the information to criminally investigate or prosecute any alcohol or drug abuse patient.[facility]In the event this information is protected by the Federal Confidentiality of Alcohol and Drug Abuse Patient Records regulations: The Federal rules restrict any use of the information to criminally investigate or prosecute any alcohol or drug abuse patient.[facility] CenterIn the event this information is protected by the Federal Confidentiality of Alcohol and Drug Abuse Patient Records regulations: The Federal rules restrict any use of the information to criminally investigate or prosecute any alcohol or drug abuse patient.[facility] [facility] the event this information is protected by the Federal Confidentiality of Alcohol and Drug Abuse Patient Records regulations: The Federal rules restrict any use of the information to criminally investigate or prosecute any alcohol or drug abuse patient.[facility] CenterIn the event this information is protected by the Federal Confidentiality of Alcohol and Drug Abuse Patient Records regulations: The Federal rules restrict any use of the information to criminally investigate or prosecute any alcohol or drug abuse patient.[facility] CenterIn the event this information is protected by [...] or prosecute any alcohol or drug abuse patient.[facility] CenterIn the event this information is protected by the Federal Confidentiality of Alcohol and Drug Abuse Patient Records regulations: The Federal rules restrict any use of the information to criminally investigate or prosecute any alcohol or drug abuse patient.[facility] CenterIn the event this information is protected by the Federal Confidentiality of Alcohol and Drug Abuse Patient Records regulations: The Federal rules restrict any use of the information to criminally investigate or prosecute any alcohol or drug abuse patient.[facility] CenterIn the event this information is protected by the Federal Confidentiality of Alcohol and Drug Abuse Patient Records regulations: The Federal rules restrict any use of the information to criminally investigate or prosecute any alcohol or drug abuse patient.[facility] CenterIn the event this information is protected by the Federal Confidentiality of Alcohol and Drug Abuse Patient Records regulations: The Federal rules restrict any use of the information to criminally investigate or prosecute any alcohol or drug abuse patient.[facility] CenterIn the event this information is protected by the Federal Confidentiality of Alcohol and Drug Abuse Patient Records regulations: The Federal rules restrict any use of the information to criminally investigate or prosecute any alcohol or drug abuse patient.[facility] CenterIn the event this information is protected by the Federal Confidentiality of Alcohol and Drug Abuse Patient Records regulations: The Federal rules restrict any use of the information to criminally investigate or prosecute any alcohol or drug abuse patient.[facility] CenterIn the event this information is protected by the Federal Confidentiality of Alcohol and Drug Abuse Patient Records regulations: The Federal rules restrict any use of the information to criminally investigate or prosecute any alcohol or drug abuse patient.[facility] CenterIn the event this information is protected by the Federal Confidentiality of Alcohol and Drug Abuse Patient Records regulations: The Federal rules restrict any use of the information to criminally investigate or prosecute any alcohol or drug abuse patient.[facility] CenterIn the event this information is protected by the Federal Confidentiality of Alcohol and Drug Abuse Patient Records regulations: The Federal rules restrict any use of the information to criminally investigate or prosecute any alcohol or drug abuse patient.[facility] CenterIn the event this information is protected by the Federal Confidentiality of Alcohol and Drug Abuse Patient Records regulations: The Federal rules restrict any use of the information to criminally investigate or prosecute any alcohol or drug abuse patient.[facility] CenterIn the event this information is protected by the Federal Confidentiality of Alcohol and Drug Abuse Patient Records regulations: The Federal rules restrict any use of the information to criminally investigate or prosecute any alcohol or drug abuse patient.[facility] CenterIn the event this information is protected by the Federal Confidentiality of Alcohol and Drug Abuse Patient Records regulations: The Federal rules restrict any use of the information to criminally investigate or prosecute any alcohol or drug abuse patient.[facility] CenterIn the event this information is protected by the Federal Confidentiality of Alcohol and Drug Abuse Patient Records regulations: The Federal rules restrict any use of the information to criminally investigate or prosecute any alcohol or drug abuse patient.[facility] CenterIn the event this information is protected by the Federal Confidentiality of Alcohol and Drug Abuse Patient Records regulations: The Federal rules restrict any use of the information to criminally investigate or prosecute any alcohol or drug abuse patient.[facility] CenterIn the event this information is protected by the Federal Confidentiality of Alcohol and Drug Abuse Patient Records regulations: The Federal rules restrict any use of the information to criminally investigate or prosecute any alcohol or drug abuse patient.[facility] CenterIn the event this information is protected by the Federal Confidentiality of Alcohol and Drug Abuse Patient Records regulations: The Federal rules restrict any use of the information to criminally investigate or prosecute any alcohol or drug abuse patient.[facility] CenterIn the event this information is protected by the Federal Confidentiality of Alcohol and Drug Abuse Patient Records regulations: The Federal rules restrict any use of the information to criminally investigate or prosecute any alcohol or drug abuse patient.[facility] CenterIn the event this information is protected by the Federal Confidentiality of Alcohol and Drug Abuse Patient Records regulations: The Federal rules restrict any use of the information to criminally investigate or prosecute any alcohol or drug abuse patient.[facility] CenterIn the event this information is protected by the Federal Confidentiality of Alcohol and Drug Abuse Patient Records regulations: The Federal rules restrict any use of the information to criminally investigate or prosecute any alcohol or drug abuse patient.[facility] CenterIn the event this information is protected by the Federal Confidentiality of Alcohol and Drug Abuse Patient Records regulations: The Federal rules restrict any use of the information to criminally investigate or prosecute any alcohol or drug abuse patient.[facility] CenterIn the event this information is protected by the Federal Confidentiality of Alcohol and Drug Abuse Patient Records regulations: The Federal rules restrict any use of the information to criminally investigate or prosecute any alcohol or drug abuse patient.[facility] CenterIn the event this information is protected by the Federal Confidentiality of Alcohol and Drug Abuse Patient Records regulations: The Federal rules restrict any use of the information to criminally investigate or prosecute any alcohol or drug abuse patient.[facility] CenterIn the event this information is protected by the Federal Confidentiality of Alcohol and Drug Abuse Patient Records regulations: The Federal rules restrict any use of the information to criminally investigate or prosecute any alcohol or drug abuse patient.[facility] CenterIn the event this information is protected by the Federal Confidentiality of Alcohol and Drug Abuse Patient Records regulations: The Federal rules restrict any use of the information to criminally investigate or prosecute any alcohol or drug abuse patient.[facility] CenterIn the event this information is protected by the Federal Confidentiality of Alcohol and Drug Abuse Patient Records regulations: The Federal rules restrict any use of the information to criminally investigate or prosecute any alcohol or drug abuse patient.[facility] CenterIn the event this information is protected by the Federal Confidentiality of Alcohol and Drug Abuse Patient Records regulations: The Federal rules restrict any use of the information to criminally investigate or prosecute any alcohol or drug abuse patient.[facility] CenterIn the event this information is protected by the Federal Confidentiality of Alcohol and Drug Abuse Patient Records regulations: The Federal rules restrict any use of the information to criminally investigate or prosecute any alcohol or drug abuse patient.[facility] CenterIn the event this information is protected by the Federal Confidentiality of Alcohol and Drug Abuse Patient Records regulations: The Federal rules restrict any use of the information to criminally investigate or prosecute any alcohol or drug abuse patient.[facility] CenterIn the event this information is protected by the Federal Confidentiality of Alcohol and Drug Abuse Patient Records regulations: The Federal rules restrict any use of the information to criminally investigate or prosecute any alcohol or drug abuse patient.[facility] CenterIn the event this information is protected by the Federal Confidentiality of Alcohol and Drug Abuse Patient Records regulations: The Federal rules restrict any use of the information to criminally investigate or prosecute any alcohol or drug abuse patient.[facility] CenterIn the event this information is protected by the Federal Confidentiality of Alcohol and Drug Abuse Patient Records regulations: The Federal rules restrict any use of the information to criminally investigate or prosecute any alcohol or drug abuse patient.[facility] CenterIn the event this information is protected by the Federal Confidentiality of Alcohol and Drug Abuse Patient Records regulations: The Federal rules restrict any use of the information to criminally investigate or prosecute any alcohol or drug abuse patient.[facility] CenterIn the event this information is protected by the Federal Confidentiality of Alcohol and Drug Abuse Patient Records regulations: The Federal rules restrict any use of the information to criminally investigate or prosecute any alcohol or drug abuse patient.[facility] CenterIn the event this information is protected by the Federal Confidentiality of Alcohol and Drug Abuse Patient Records regulations: The Federal rules restrict any use of the information to criminally investigate or prosecute any alcohol or drug abuse patient.[facility] CenterIn the event this information is protected by the Federal Confidentiality of Alcohol and Drug Abuse Patient Records regulations: The Federal rules restrict any use of the information to criminally investigate or prosecute any alcohol or drug abuse patient.[facility] CenterIn the event this information is protected by the Federal Confidentiality of Alcohol and Drug Abuse Patient Records regulations: The Federal rules restrict any use of the information to criminally investigate or prosecute any alcohol or drug abuse patient.[facility] CenterIn the event this information is protected by the Federal Confidentiality of Alcohol and Drug Abuse Patient Records regulations: The Federal rules restrict any use of the information to criminally investigate or prosecute any alcohol or drug abuse patient.[facility] CenterIn the event this information is protected by the Federal Confidentiality of Alcohol and Drug Abuse Patient Records regulations: The Federal rules restrict any use of the information to criminally investigate or prosecute any alcohol or drug abuse patient.[facility] CenterIn the event this information is protected by the Federal Confidentiality of Alcohol and Drug Abuse Patient Records regulations: The Federal rules restrict any use of the information to criminally investigate or prosecute any alcohol or drug abuse patient.[facility] CenterIn the event this information is protected by the Federal Confidentiality of Alcohol and Drug Abuse Patient Records regulations: The Federal rules restrict any use of the information to criminally investigate or prosecute any alcohol or drug abuse patient.[facility] CenterIn the event this information is protected by the Federal Confidentiality of Alcohol and Drug Abuse Patient Records regulations: The Federal rules restrict any use of the information to criminally investigate or prosecute any alcohol or drug abuse patient.[facility] CenterIn the event this information is protected by the Federal Confidentiality of Alcohol and Drug Abuse Patient Records regulations: The Federal rules restrict any use of the information to criminally investigate or prosecute any alcohol or drug abuse patient.[facility] CenterIn the event this information is protected by the Federal Confidentiality of Alcohol and Drug Abuse Patient Records regulations: The Federal rules restrict any use of the information to criminally investigate or prosecute any alcohol or drug abuse patient.[facility] CenterIn the event this information is protected by the Federal Confidentiality of Alcohol and Drug Abuse Patient Records regulations: The Federal rules restrict any use of the information to criminally investigate or prosecute any alcohol or drug abuse patient.[facility] CenterIn the event this information is protected by the Federal Confidentiality of Alcohol and Drug Abuse Patient Records regulations: The Federal rules restrict any use of the information to criminally investigate or prosecute any alcohol or drug abuse patient.[facility] CenterIn the event this information is protected by the Federal Confidentiality of Alcohol and Drug Abuse Patient Records regulations: The Federal rules restrict any use of the information to criminally investigate or prosecute any alcohol or drug abuse patient.[facility] the event this information is protected by the Federal Confidentiality of Alcohol and Drug Abuse Patient Records regulations: The Federal rules restrict any use of the information to criminally investigate or prosecute any alcohol or drug abuse patient.[facility] CenterIn the event this information is protected by the Federal Confidentiality of Alcohol and Drug Abuse Patient Records regulations: The Federal rules restrict any use of the information to criminally investigate or prosecute any alcohol or drug abuse patient.[facility] CenterIn the event this information is protected by [...] or prosecute any alcohol or drug abuse patient.[facility] CenterIn the event this information is protected by the Federal Confidentiality of Alcohol and Drug Abuse Patient Records regulations: The Federal rules restrict any use of the information to criminally investigate or prosecute any alcohol or drug abuse patient.[facility] CenterIn the event this information is protected by the Federal Confidentiality of Alcohol and Drug Abuse Patient Records regulations: The Federal rules restrict any use of the information to criminally investigate or prosecute any alcohol or drug abuse patient.[facility] CenterIn the event this information is protected by the Federal Confidentiality of Alcohol and Drug Abuse Patient Records regulations: The Federal rules restrict any use of the information to criminally investigate or prosecute any alcohol or drug abuse patient.[facility] CenterIn the event this information is protected by the Federal Confidentiality of Alcohol and Drug Abuse Patient Records regulations: The Federal rules restrict any use of the information to criminally investigate or prosecute any alcohol or drug abuse patient.[facility] CenterIn the event this information is protected by the Federal Confidentiality of Alcohol and Drug Abuse Patient Records regulations: The Federal rules restrict any use of the information to criminally investigate or prosecute any alcohol or drug abuse patient.[facility] CenterIn the event this information is protected by the Federal Confidentiality of Alcohol and Drug Abuse Patient Records regulations: The Federal rules restrict any use of the information to criminally investigate or prosecute any alcohol or drug abuse patient.[facility] CenterIn the event this information is protected by the Federal Confidentiality of Alcohol and Drug Abuse Patient Records regulations: The Federal rules restrict any use of the information to criminally investigate or prosecute any alcohol or drug abuse patient.[facility] CenterIn the event this information is protected by the Federal Confidentiality of Alcohol and Drug Abuse Patient Records regulations: The Federal rules restrict any use of the information to criminally investigate or prosecute any alcohol or drug abuse patient.[facility] Reason for Visit (unrecogniz ed section and content) Reason Comments Medication Request Reason Comments No Show Specialty Diagnoses / Procedures Referred By Contac t Referred To Contact Pain Management / PAIN MANAGEMENT Diagnoses follow up from injection Procedures OFFICE/OUTPATIENT [facility] 30-39 MIN VIDEO SPEC EST Denice Gr, SARAI.[facility] [address] [place] [address] Denice Gr, SARAI.[facility] [address] [place] [address] Referral ID Status Reason Start Date Expiration Date Visits Re quested Visits Authorized [id number] Closed 06/20/2021 06/19/2022 1 1 Reason Comments [...] C (HCC) Procedures CONSULT TO HEPATOLOGY OFFICE/OUTPATIENT [facility] 60-74 MINUTES Jaimee Palomares PA-C [address] [place] [address] Referral ID Status Reason Start Date Expiration Date V isits Requested Visits Authorized [id number] Closed PCP Requested Referral 11/16/2021 11/16/2022 1 [...] urinary urgency Procedures CONSULT TO UROLOGY OFFICE/OUTPATIENT [facility] 60-74 MINUTES Denice Gr APRN.FITTER / WELDER [address] [place] [address] Referral ID Status Reason Start Date Expiration Date V isits Requested Visits Authorized [id number] Closed PCP Requested Referral 12/09/2021 12/09/2022 1 [...] Refill Request 02/26/2022 Reason Comments ED Follow-up [facility] 02/24/22 Hypotenti on Reason Onset Date Comments [...] remission Procedures CONSULT TO NEUROLOGY OFFICE/OUTPATIENT [facility] 60-74 MINUTES Jaimee Palomares PA-C [address] [place] [address] Referral ID Status Reason Start Date Expiration Date V isits Requested Visits Authorized [id number] Closed PCP Requested Referral 02/25/2022 02/25/2023 1 1 Reason Comments Results Reason Comments Hospital Follow Up [facility] D/C 05/06/22 Syn cope, Hypotension Reason Comments [...] claudication Procedures CONSULT TO PHYSICAL THERAPY Shira Kam M, CASE WORKER.FITTER / WELDER [address] [place] [address] Pt [facility] [address] [facility] [address] Referral ID Status Reason Start Date Expiration Date Visits Re quested Visits Authorized [id number] Closed 06/16/2022 06/19/2022 1 1 Reason Onset [...] MDM 60-74 MINUTES Jenifer Yeager APRN.CN [address] [place] [address] Referral ID Status Reason Start Date Expiration Date V isits Requested Visits Authorized [id number] Closed PCP Requested Referral 10/20/2022 10/20/2023 1 1 Reason Comments PT Eval Specialty Diagnoses / Procedures Referred By Contac t Referred To Contact PHYSICAL THERAPY Diagnoses Primary osteoarthritis of right hip Lumbar radiculopathy Procedures CONSULT TO PHYSICAL THERAPY Ibeth Albert PA-C [address] [place] [address] [place] [address] Referral ID Status Reason Start Date Expiration Date V isits Requested Visits Authorized [id number] Authorized 02/09/2023 06/10/2023 20 20 Reason Onset Date Comments Refill Request 02/28/2023 Reason Comments Physical Therapy Specialty Diagnoses / Procedures Referred By Contac t Referred To Contact PHYSICAL THERAPY Diagnoses Primary osteoarthritis of right hip Lumbar radiculopathy Procedures CONSULT TO PHYSICAL THERAPY Ibeth Albert PA-C [address] [place] [address] Pt [facility] [place] [address] Reason Comments Radiology US Specialty Diagnoses / Procedures Referred By Contac t Referred To Contact [facility] Diagnoses Breast pain Procedures US BREAST LTD RT US BREAST UNI REAL TIME WITH IMAGE LIMITED Memo Huber MD [address] [place] [address] [facility] [address] [place] [address] Referral ID Status Reason Start Date Expiration Date V isits Requested Visits Authorized [id number] Closed Auto-Generate d Referral 07/29/2022 08/28/2023 1 1 Specialty Diagnoses / Procedures Referred By Contac t Referred To Contact [facility] IMAGING Diagnoses Transient cerebral ischemia, unspecified type Balance problem Falls frequently Procedures MRI BRAIN WO IVCON MRI BRAIN BRAIN STEM W/O CONTRAST MATERIAL Urvashi Hughes, CASE WORKER.FITTER / WELDER [address] [place] [address] [place] [address] Referral ID Status Reason Start Date Expiration Date V isits Requested Visits Authorized [id number] Closed Auto-Generate d Referral 01/12/2023 03/13/2023 1 1 Reason Comments ER F/U Numbness and tinglin g in Bilateral hands Care Teams (unrecognized sec tion and content) Manufacturing Process Engineer Relationship Specialty Start Date End Date Jaimee Palomares PA-C [address] [place] [address] PCP - General Family Practice 09/09/16 Manufacturing Process Engineer Relationship Specialty Start Date End Date Jaimee Palomares PA-C [address] [place] [address] PCP - General Family Practice 09/09/16 Manufacturing Process Engineer Relationship Specialty Start Date End Date Jaimee Palomares PA-C [address] [place] [address] PCP - General Family Practice 09/09/16 Manufacturing Process Engineer Relationship Specialty Start Date End Date Jaimee Palomares PA-C [address] [place] [address] PCP - General Family Practice 09/09/16 Manufacturing Process Engineer Relationship Specialty Start Date End Date Jaimee Palomares PA-C [address] [place] [address] PCP - General Family Practice 09/09/16 Manufacturing Process Engineer Relationship Specialty Start Date End Date Jaimee Palomares PA-C [address] [place] [address] PCP - General Family Practice 09/09/16 Manufacturing Process Engineer Relationship Specialty Start Date End Date Jaimee Palomares PA-C [address] [place] [address] PCP - General Family Practice 09/09/16 Manufacturing Process Engineer Relationship Specialty Start Date End Date Jaimee Palomares PA-C [address] [place] [address] PCP - General Family Practice 09/09/16 Manufacturing Process Engineer Relationship Specialty Start Date End Date Jaimee Palomares PA-C [address] [place] [address] PCP - General Family Practice 09/09/16 Manufacturing Process Engineer Relationship Specialty Start Date End Date Jaimee Palomares PA-C [address] [place] [address] PCP - General Family Practice 09/09/16 Manufacturing Process Engineer Relationship Specialty Start Date End Date Jaimee Palomares PA-C [address] [place] [address] PCP - General Family Practice 09/09/16 Manufacturing Process Engineer Relationship Specialty Start Date End Date Jaimee Palomares PA-C [address] [place] [address] PCP - General Family Practice 09/09/16 Manufacturing Process Engineer Relationship Specialty Start Date End Date Jaimee Palomares PA-C [address] [place] [address] PCP - General Family Practice 09/09/16 Manufacturing Process Engineer Relationship Specialty Start Date End Date Jaimee Palomares PA-C [address] [place] [address] PCP - General Family Practice 09/09/16 Manufacturing Process Engineer Relationship Specialty Start Date End Date Jaimee Palomares PA-C [address] [place] [address] PCP - General Family Practice 09/09/16 Manufacturing Process Engineer Relationship Specialty Start Date End Date Jaimee Palomares PA-C [address] [place] [address] PCP - General Family Practice 09/09/16 Manufacturing Process Engineer Relationship Specialty Start Date End Date Jaimee Palomares PA-C [address] [place] [address] PCP - General Family Practice 09/09/16 Manufacturing Process Engineer Relationship Specialty Start Date End Date Jaimee Palomares PA-C [address] [place] [address] PCP - General Family Practice 09/09/16 Manufacturing Process Engineer Relationship Specialty Start Date End Date Jaimee Palomares PA-C [address] [place] [address] PCP - General Family Practice 09/09/16 Manufacturing Process Engineer Relationship Specialty Start Date End Date Jaimee Palomares PA-C [address] [place] [address] PCP - General Family Practice 09/09/16 Manufacturing Process Engineer Relationship Specialty Start Date End Date Jaimee Palomares PA-C [address] [place] [address] PCP - General Family Practice 09/09/16 Manufacturing Process Engineer Relationship Specialty Start Date End Date Jaimee Palomares PA-C [address] [place] [address] PCP - General Family Practice 09/09/16 Manufacturing Process Engineer Relationship Specialty Start Date End Date Jaimee Palomares PA-C [address] [place] [address] PCP - General Family Practice 09/09/16 Manufacturing Process Engineer Relationship Specialty Start Date End Date Jaimee Palomares PA-C [address] [place] [address] PCP - General Family Practice 09/09/16 Manufacturing Process Engineer Relationship Specialty Start Date End Date Jaimee Palomares PA-C [address] [place] [address] PCP - General Family Practice 09/09/16 Manufacturing Process Engineer Relationship Specialty Start Date End Date Jaimee Palomares PA-C [address] [place] [address] PCP - General Family Practice 09/09/16 Manufacturing Process Engineer Relationship Specialty Start Date End Date Jaimee Palomares PA-C [address] [place] [address] PCP - General Family Practice 09/09/16 Manufacturing Process Engineer Relationship Specialty Start Date End Date Jaimee Palomares PA-C [address] [place] [address] PCP - General Family Practice 09/09/16 Manufacturing Process Engineer Relationship Specialty Start Date End Date Jaimee Palomares PA-C [address] [place] [address] PCP - General Family Practice 09/09/16 Manufacturing Process Engineer Relationship Specialty Start Date End Date Jaimee Palomares PA-C [address] [place] [address] PCP - General Family Practice 09/09/16 Manufacturing Process Engineer Relationship Specialty Start Date End Date Jaimee Palomares PA-C [address] [place] [address] PCP - General Family Practice 09/09/16 Manufacturing Process Engineer Relationship Specialty Start Date End Date Jaimee Palomares PA-C [address] [place] [address] PCP - General Family Practice 09/09/16 Manufacturing Process Engineer Relationship Specialty Start Date End Date Jaimee Palomares PA-C [address] [place] [address] PCP - General Family Practice 09/09/16 Manufacturing Process Engineer Relationship Specialty Start Date End Date Jaimee Palomares PA-C [address] [place] [address] PCP - General Family Practice 09/09/16 Manufacturing Process Engineer Relationship Specialty Start Date End Date Jaimee Palomares PA-C [address] [place] [address] PCP - General Family Practice 09/09/16 Manufacturing Process Engineer Relationship Specialty Start Date End Date Jaimee Palomares PA-C [address] [place] [address] PCP - General Family Medicine 09/09/16 Manufacturing Process Engineer Relationship Specialty Start Date End Date Jaimee Palomares PA-C [address] [place] [address] PCP - General Family Medicine 09/09/16 Manufacturing Process Engineer Relationship Specialty Start Date End Date Jaimee Palomares PA-C [address] [place] [address] PCP - General Family Medicine 09/09/16 Manufacturing Process Engineer Relationship Specialty Start Date End Date Jaimee Palomares PA-C [address] [place] [address] PCP - General Family Medicine 09/09/16 Manufacturing Process Engineer Relationship Specialty Start Date End Date Jaimee Palomares PA-C [address] [place] [address] PCP - General Family Medicine 09/09/16 Manufacturing Process Engineer Relationship Specialty Start Date End Date Jaimee Palomares PA-C [address] [place] [address] PCP - General Family Medicine 09/09/16 Manufacturing Process Engineer Relationship Specialty Start Date End Date Jaimee Palomares PA-C [address] [place] [address] PCP - General Family Medicine 09/09/16 Manufacturing Process Engineer Relationship Specialty Start Date End Date Jaimee Palomares PA-C [address] [place] [address] PCP - General Family Medicine 09/09/16 Manufacturing Process Engineer Relationship Specialty Start Date End Date Jaimee Palomares PA-C [address] [place] [address] PCP - General Family Medicine 09/09/16 Manufacturing Process Engineer Relationship Specialty Start Date End Date Jaimee Palomares PA-C [address] [place] [address] PCP - General Family Medicine 09/09/16 Manufacturing Process Engineer Relationship Specialty Start Date End Date Jaimee Palomares PA-C [address] [place] [address] PCP - General Family Medicine 09/09/16 Manufacturing Process Engineer Relationship Specialty Start Date End Date Jaimee Palomares PA-C [address] [place] [address] PCP - General Family Medicine 09/09/16 Manufacturing Process Engineer Relationship Specialty Start Date End Date Jaimee Palomares PA-C [address] [place] [address] PCP - General Family Medicine 09/09/16 Manufacturing Process Engineer Relationship Specialty Start Date End Date Jaimee Palomares PA-C [address] [place] [address] PCP - General Family Medicine 09/09/16 Manufacturing Process Engineer Relationship Specialty Start Date End Date Jaimee Palomares PA-C [address] [place] [address] PCP - General Family Medicine 09/09/16 Manufacturing Process Engineer Relationship Specialty Start Date End Date Jaimee Palomares PA-C [address] [place] [address] PCP - General Family Medicine 09/09/16 Manufacturing Process Engineer Relationship Specialty Start Date End Date Jaimee Palomares PA-C [address] [place] [address] PCP - General Family Medicine 09/09/16 Manufacturing Process Engineer Relationship Specialty Start Date End Date Jaimee Palomares PA-C [address] [place] [address] PCP - General Family Medicine 09/09/16 Manufacturing Process Engineer Relationship Specialty Start Date End Date Jaimee Palomares PA-C [address] [place] [address] PCP - General Family Medicine 09/09/16 Manufacturing Process Engineer Relationship Specialty Start Date End Date Jaimee Palomares PA-C [address] [place] [address] PCP - General Family Medicine 09/09/16 Manufacturing Process Engineer Relationship Specialty Start Date End Date Jaimee Palomares PA-C [address] [place] [address] PCP - General Family Medicine 09/09/16 Manufacturing Process Engineer Relationship Specialty Start Date End Date Jaimee Palomares PA-C [address] [place] [address] PCP - General Family Medicine 09/09/16 Manufacturing Process Engineer Relationship Specialty Start Date End Date Jaimee Palomares PA-C [address] [place] [address] PCP - General Family Medicine 09/09/16 Manufacturing Process Engineer Relationship Specialty Start Date End Date Jaimee Palomares PA-C [address] [place] [address] PCP - General Family Medicine 09/09/16 Manufacturing Process Engineer Relationship Specialty Start Date End Date Jaimee Palomares PA-C [address] [place] [address] PCP - General Family Medicine 09/09/16 Manufacturing Process Engineer Relationship Specialty Start Date End Date Jaimee Palomares PA-C [address] [place] [address] PCP - General Family Medicine 09/09/16 Manufacturing Process Engineer Relationship Specialty Start Date End Date Jaimee Palmoares PA-C [address] [place] [address] PCP - General Family Medicine 09/09/16 Manufacturing Process Engineer Relationship Specialty Start Date End Date Jaimee Palomares PA-C [address] [place] [address] PCP - General Family Medicine 09/09/16 Manufacturing Process Engineer Relationship Specialty Start Date End Date Jaimee Palomares PA-C [address] [place] [address] PCP - General Family Medicine 09/09/16 Manufacturing Process Engineer Relationship Specialty Start Date End Date Jaimee Palomares PA-C [address] [place] [address] PCP - General Family Medicine 09/09/16 Manufacturing Process Engineer Relationship Specialty Start Date End Date Jaimee Palomares PA-C [address] [place] [address] PCP - General Family Medicine 09/09/16 Manufacturing Process Engineer Relationship Specialty Start Date End Date Jaimee Palomares PA-C [address] [place] [address] PCP - General Family Medicine 09/09/16 Manufacturing Process Engineer Relationship Specialty Start Date End Date Jaimee Palomares PA-C [address] [place] [address] PCP - General Family Medicine 09/09/16 Manufacturing Process Engineer Relationship Specialty Start Date End Date Jaimee Palomares PA-C [address] [place] [address] PCP - General Family Medicine 09/09/16 Manufacturing Process Engineer Relationship Specialty Start Date End Date Jaimee Palomares PA-C [address] [place] [address] PCP - General Family Medicine 09/09/16 Manufacturing Process Engineer Relationship Specialty Start Date End Date Jaimee Palomares PA-C [address] [place] [address] PCP - General Family Medicine 09/09/16 Manufacturing Process Engineer Relationship Specialty Start Date End Date Jaimee Palomares PA-C [address] [place] [address] PCP - General Family Medicine 09/09/16 Manufacturing Process Engineer Relationship Specialty Start Date End Date Jaimee Palomares PA-C [address] [place] [address] PCP - General Family Medicine 09/09/16 Manufacturing Process Engineer Relationship Specialty Start Date End Date Jaimee Palomares PA-C [address] [place] [address] PCP - General Family Medicine 09/09/16 Manufacturing Process Engineer Relationship Specialty Start Date End Date Jaimee Palomares PA-C [address] [place] [address] PCP - General Family Medicine 09/09/16 Manufacturing Process Engineer Relationship Specialty Start Date End Date Jaimee Palomares PA-C [address] [place] [address] PCP - General Family Medicine 09/09/16 Manufacturing Process Engineer Relationship Specialty Start Date End Date Jaimee Palomares PA-C [address] [place] [address] PCP - General Family Medicine 09/09/16 Manufacturing Process Engineer Relationship Specialty Start Date End Date Jaimee Palomares PA-C [address] [place] [address] PCP - General Family Medicine 09/09/16 Manufacturing Process Engineer Relationship Specialty Start Date End Date Jaimee Palomares PA-C [address] [place] [address] PCP - General Family Medicine 09/09/16 PRN [...] BE BASED ON THE PRIMARY CLINICAL RECORDS. [facility]. provides no warranty or guarantee of the accuracy or completeness of information in this document.
[2023-06-25 14:03] LABS: Anion Gap 7 (5-15); BUN 39 mg/dL (7-18); BUN/Creat Ratio 37.1 RATIO (10-20); Calcium,Total 8.5 mg/dL (8.5-10.1); Chloride 102 mmol/L (98-107); Creatinine, Serum 1.05 mg/dL (0.55-1.02); EST Glomerular Filtration Rate 58 mL/min (>60); Est Glom Filt Rate - Afr Amer 70 mL/min (>60); Glucose 121 mg/dL (74-106); Potassium 3.7 mmol/L (3.5-5.1); Sodium Level 137 mmol/L (136-145)
[2023-06-25] MEDS: 0.9% Normal Saline (1000mL) 1,000 ML 999 ML IV (14:17)
[2023-06-25] MEDS: Morphine 4 MG/ML Syringe IV (14:51)
[2023-06-25] MEDS: Ondansetron 4 MG/2 ML Vial IV (14:51)
[2023-06-25 15:25] LABS: Bacteria 0 SEEN /hpf (None Seen); Mucous, Urine 0 SEEN /hpf (<or=2+); Red Blood Cells-Urine 0 SEEN /hpf (0-5)
[2023-06-25 15:27] LABS: Color, Urine Yellow (Yellow); Glucose, Dipstick Normal (Normal); Ketone-Dipstick Negative (Negative); Leukocyte Esterase-Dipstick 25 /ul (Negative); Nitrite-Dipstick Negative (Negative); Occult Blood-Urine Negative /ul (Negative); Protein-Dipstick 15 mg/dl (Negative); Specific Gravity, Urine 1.025 (1.002-1.030); Urine Bilirubin Dipstick Negative (Negative); Urine Clarity Clear (Clear); Urine Urobilinogen Normal (Normal)
[2023-06-25 15:37] LABS: Hyaline Cast 0-5 SEEN /lpf (0-5); Squamous Epithelial Cells - UA 0-5 SEEN /hpf (5-10); White Blood Cells 0-5 SEEN /hpf (0-5)
--- OUTSIDE RECORDS SUMMARY | 2023-06-25 16:43 | XMS RPT_ITS | CCD ---
Author Name Unknown Address [id number] [place] [address] Organization [facility] Care Team Providers Care Legal Administrative Assistant Name Role Phone MATTHEW ULLOA Admitting Unavailable [...] [FENTANYL] Drug Allergy 6 Other: See Comments [facility] Repository (20 sources) varenicline; Translations: [VARENICLINE] Drug Allergy 7 Intolerance [facility] Repository (1 source) varenicline Drug Allergy [facility] Repository Medications Current Medications Medication [...] Drug Class(es) Dates Sig (Normalized) Sig (Original) [id number] 200 actuat albuterol 0.09 mg/actuat metered dose [...] aftercare (3 sources) Polypharmacy ; Translations: [Other fci (current) drug therapy] Episodic Other aftercare (1 [...] 10-21-2021 Episodic Other aftercare (1 source) Other fci (current) drug therapy; Translations: [Polypharmacy] Onset: 08-26-2022 [...] 70 mm[Hg] Flo Martino MD Work Phone: [facility] 05-10-2023 11:11-0500 Heart rate 67 /min Flo Martino MD Work Phone: [facility] 05-10-2023 11:11-0500 Respiratory rate 20 /min Flo Martino MD Work Phone: [facility] 05-10-2023 11:11-0500 SaO2% (BldA) [Mass fraction] 99 % Flo Martino MD Work Phone: [facility] 05-10-2023 11:11-0500 Systolic blood pressure 118 mm[Hg] Flo Martino MD Work Phone: [facility] 02-14-2023 10:24-0400 Body height 165.1 cm Carmelita Ragsdale MD Work Phone: [facility] 02-14-2023 10:24-0400 Body weight 70.31 kg Carmelita Ragsdale MD Work Phone: [facility] 12-16-2022 11:20-0400 Body weight 64.05 kg Urvashi Dahlhausen CLINICAL ASSOCIATE.SEWING MACHINE OPERATOR Work Phone: [facility] 12-16-2022 11:20-0400 Diastolic blood pressure 100 mm[Hg] Urvashi Dahlhausen CLINICAL ASSOCIATE.SEWING MACHINE OPERATOR Work Phone: [facility] 12-16-2022 11:20-0400 Heart rate 106 /min Urvashi Dahlhausen CLINICAL ASSOCIATE.SEWING MACHINE OPERATOR Work Phone: [facility] 12-16-2022 11:20-0400 Respiratory rate 20 /min Urvashi Dahlhausen CLINICAL ASSOCIATE.SEWING MACHINE OPERATOR Work Phone: [facility] 12-16-2022 11:20-0400 SaO2% (BldA) [Mass fraction] 98 % Urvashi Dahlhausen CLINICAL ASSOCIATE.SEWING MACHINE OPERATOR Work Phone: [facility] 12-16-2022 11:20-0400 Systolic blood pressure 168 mm[Hg] Urvashi Dahlhausen CLINICAL ASSOCIATE.SEWING MACHINE OPERATOR Work Phone: [facility] 12-09-2022 15:17-0400 Body weight 71.67 kg NA Palomares PA-C Work Phone: [facility] 12-09-2022 15:17-0400 Diastolic blood pressure 80 mm[Hg] NA Palomares PA-C Work Phone: [facility] 12-09-2022 15:17-0400 Heart rate 72 /min NA Palomares PA-C Work Phone: [facility] 12-09-2022 15:17-0400 Respiratory rate 18 /min NA Palomares PA-C Work Phone: [facility] 12-09-2022 15:17-0400 SaO2% (BldA) [Mass fraction] 96 % NA Palomares PA-C Work Phone: [facility] 12-09-2022 15:17-0400 Systolic blood pressure 128 mm[Hg] NA Palomares PA-C Work Phone: [facility] 10-20-2022 11:10-0400 Body weight 61.24 kg Jenifer Toy MOON.CNM Work Phone: [facility] 10-20-2022 11:10-0400 Diastolic blood pressure 84 mm[Hg] Jenifer Toy CLINICAL ASSOCIATE.CNM Work Phone: [facility] 10-20-2022 11:10-0400 Systolic blood pressure 144 mm[Hg] Jenifer Toy CLINICAL ASSOCIATE.CNM Work Phone: [facility] 10-14-2022 13:24-0400 Heart rate 75 /min Deloris Troy MD Work Phone: [facility] 10-14-2022 13:24-0400 Respiratory rate 16 /min Deloris Troy MD Work Phone: [facility] 10-14-2022 13:24-0400 SaO2% (BldA) [Mass fraction] 97 % Deloris Troy MD Work Phone: [facility] 09-16-2022 14:05-0400 Body weight 59.42 kg NA Palomares PA-C Work Phone: [facility] 09-16-2022 14:05-0400 Diastolic blood pressure 88 mm[Hg] NA Palomares PA-C Work Phone: [facility] 09-16-2022 14:05-0400 Heart rate 92 /min NA Palomares PA-C Work Phone: [facility] 09-16-2022 14:05-0400 Respiratory rate 18 /min NA Palomares PA-C Work Phone: [facility] 09-16-2022 14:05-0400 SaO2% (BldA) [Mass fraction] 99 % NA Palomares PA-C Work Phone: [facility] 09-16-2022 14:05-0400 Systolic blood pressure 170 mm[Hg] NA Palomares PA-C Work Phone: [facility] 08-26-2022 10:03-0500 Body temperature 97.81 [degF] Urvashi Dahlhausen CLINICAL ASSOCIATE.SEWING MACHINE OPERATOR Work Phone: [facility] 08-26-2022 10:03-0500 Body weight 61.24 kg Urvashi Dahlhausen CLINICAL ASSOCIATE.SEWING MACHINE OPERATOR Work Phone: [facility] 08-26-2022 10:03-0500 Diastolic blood pressure 96 mm[Hg] Urvashi Dahlhausen CLINICAL ASSOCIATE.SEWING MACHINE OPERATOR Work Phone: [facility] 08-26-2022 10:03-0500 Heart rate 74 /min Urvashi Dahlhausen CLINICAL ASSOCIATE.SEWING MACHINE OPERATOR Work Phone: [facility] 08-26-2022 10:03-0500 Respiratory rate 18 /min Urvashi Dahlhausen CLINICAL ASSOCIATE.SEWING MACHINE OPERATOR Work Phone: [facility] 08-26-2022 10:03-0500 SaO2% (BldA) [Mass fraction] 97 % Urvashi Dahlhausen CLINICAL ASSOCIATE.SEWING MACHINE OPERATOR Work Phone: [facility] 08-26-2022 10:03-0500 Systolic blood pressure 129 mm[Hg] Urvashi Dahlhausen CLINICAL ASSOCIATE.SEWING MACHINE OPERATOR Work Phone: [facility] 08-16-2022 10:58-0500 Body weight 64.41 kg NA Palomares PA-C Work Phone: [facility] 08-16-2022 10:58-0500 Diastolic blood pressure 80 mm[Hg] NA Palomares PA-C Work Phone: [facility] 08-16-2022 10:58-0500 Heart rate 74 /min NA Palomares PA-C Work Phone: [facility] 08-16-2022 10:58-0500 Respiratory rate 18 /min NA Palomares PA-C Work Phone: [facility] 08-16-2022 10:58-0500 SaO2% (BldA) [Mass fraction] 97 % NA Palomares PA-C Work Phone: [facility] 08-16-2022 10:58-0500 Systolic blood pressure 148 mm[Hg] NA Palomares PA-C Work Phone: [facility] 06-03-2022 11:10-0500 Heart rate 80 /min Shira Powellfield CLINICAL ASSOCIATE.SEWING MACHINE OPERATOR Work Phone: [facility] 06-03-2022 11:10-0500 Respiratory rate 16 /min Shira Powellfield CLINICAL ASSOCIATE.SEWING MACHINE OPERATOR Work Phone: [facility] 06-03-2022 11:10-0500 SaO2% (BldA) [Mass fraction] 95 % Shira Powellfield CLINICAL ASSOCIATE.SEWING MACHINE OPERATOR Work Phone: [facility] 05-25-2022 14:53-0500 Body weight 67.77 kg Jenifer Yeager CLINICAL ASSOCIATE.CNM Work Phone: [facility] 05-25-2022 14:53-0500 Diastolic blood pressure 64 mm[Hg] Jenifer Yeager CLINICAL ASSOCIATE.CNM Work Phone: [facility] 05-25-2022 14:53-0500 Systolic blood pressure 112 mm[Hg] Jenifer Yeager CLINICAL ASSOCIATE.CNM Work Phone: [facility] 05-14-2022 10:53-0500 Body weight 65.77 kg NA Palomares PA-C Work Phone: [facility] 05-14-2022 10:53-0500 Diastolic blood pressure 78 mm[Hg] NA Palomares PA-C Work Phone: [facility] 05-14-2022 10:53-0500 Heart rate 93 /min NA Palomares PA-C Work Phone: [facility] 05-14-2022 10:53-0500 SaO2% (BldA) [Mass fraction] 97 % NA Palomares PA-C Work Phone: [facility] 05-14-2022 10:53-0500 Systolic blood pressure 148 mm[Hg] NA Palomares PA-C Work Phone: [facility] 05-07-2022 14:35-0500 Body temperature 97.81 [degF] Memo Leahy Jr., MD Work Phone: [facility] 05-07-2022 14:35-0500 Body weight 68.04 kg Memo Leahy Jr., MD Work Phone: [facility] 05-07-2022 14:35-0500 Diastolic blood pressure 62 mm[Hg] Memo Leahy Jr., MD Work Phone: [facility] 05-07-2022 14:35-0500 Heart rate 80 /min Memo Leahy Jr., MD Work Phone: [facility] 05-07-2022 14:35-0500 Respiratory rate 18 /min Memo Laehy Jr., MD Work Phone: [facility] 05-07-2022 14:35-0500 SaO2% (BldA) [Mass fraction] 97 % Memo Leahy Jr., MD Work Phone: [facility] 05-07-2022 14:35-0500 Systolic blood pressure 118 mm[Hg] Memo Leahy Jr., MD Work Phone: [facility] 04-01-2022 08:34-0400 Body weight 73.48 kg NA Palomares PA-C Work Phone: [facility] 04-01-2022 08:34-0400 Diastolic blood pressure 78 mm[Hg] NA Palomares PA-C Work Phone: [facility] 04-01-2022 08:34-0400 Heart rate 69 /min NA Palomares PA-C Work Phone: [facility] 04-01-2022 08:34-0400 Respiratory rate 20 /min NA Palomares PA-C Work Phone: [facility] 04-01-2022 08:34-0400 SaO2% (BldA) [Mass fraction] 96 % NA Palomares PA-C Work Phone: [facility] 04-01-2022 08:34-0400 Systolic blood pressure 128 mm[Hg] NA Palomares PA-C Work Phone: [facility] 03-17-2022 10:57-0400 Body height 175.3 cm Sarahi Whitlock MD Work Phone: [facility] 03-17-2022 10:57-0400 Body weight 74.39 kg Sraahi Whitlock MD Work Phone: [facility] 03-17-2022 10:57-0400 Diastolic blood pressure 84 mm[Hg] Sarahi Whitlock MD Work Phone: [facility] 03-17-2022 10:57-0400 Heart rate 60 /min Sarahi Whitlock MD Work Phone: [facility] 03-17-2022 10:57-0400 Systolic blood pressure 122 mm[Hg] Sarahi Whitlock MD Work Phone: [facility] 02-25-2022 14:25-0400 Body temperature 98.6 [degF] NA Palomares PA-C Work Phone: [facility] 02-25-2022 14:25-0400 Body weight 74.39 kg NA Palomares PA-C Work Phone: [facility] 02-25-2022 14:25-0400 Diastolic blood pressure 72 mm[Hg] NA Palomares PA-C Work Phone: [facility] 02-25-2022 14:25-0400 Heart rate 90 /min NA Palomares PA-C Work Phone: [facility] 02-25-2022 14:25-0400 Respiratory rate 16 /min NA Palomares PA-C Work Phone: [facility] 02-25-2022 14:25-0400 SaO2% (BldA) [Mass fraction] 96 % NA Palomares PA-C Work Phone: [facility] 02-25-2022 14:25-0400 Systolic blood pressure 110 mm[Hg] NA Palomares PA-C Work Phone: [facility] 02-24-2022 10:45-0400 Diastolic blood pressure 61 mm[Hg] Deloris Troy MD Work Phone: [facility] 02-24-2022 10:45-0400 Systolic blood pressure 87 mm[Hg] Deloris Troy MD Work Phone: [facility] 02-24-2022 10:28-0400 Body temperature 99.19 [degF] Deloris Troy MD Work Phone: [facility] 02-24-2022 10:28-0400 Respiratory rate 16 /min Deloris Troy MD Work Phone: [facility] 02-24-2022 10:28-0400 SaO2% (BldA) [Mass fraction] 97 % Deloris Troy MD Work Phone: [facility] 02-24-2022 09:41-0400 Heart rate 98 /min Deloris Troy MD Work Phone: [facility] 02-11-2022 13:19-0400 Diastolic blood pressure 64 mm[Hg] NA Palomares PA-C Work Phone: [facility] 02-11-2022 13:19-0400 Systolic blood pressure 100 mm[Hg] NA Aplomares PA-C Work Phone: [facility] 02-11-2022 10:06-0400 Body weight 75.3 kg NA Palomares PA-C Work Phone: [facility] 01-18-2022 11:10-0400 Body weight 80.29 kg Nguyen Bethesda CLINICAL ASSOCIATE.SEWING MACHINE OPERATOR Work Phone: [facility] 01-18-2022 11:10-0400 Diastolic blood pressure 78 mm[Hg] Nguyen Tree CLINICAL ASSOCIATE.SEWING MACHINE OPERATOR Work Phone: [facility] 01-18-2022 11:10-0400 Systolic blood pressure 112 mm[Hg] Nguyen Bethesda CLINICAL ASSOCIATE.SEWING MACHINE OPERATOR Work Phone: [facility] 12-15-2021 08:23-0400 Diastolic blood pressure 82 mm[Hg] Blaine Ann MD Work Phone: [facility] 12-15-2021 08:23-0400 Heart rate 75 /min Blaine Ann MD Work Phone: [facility] 12-15-2021 08:23-0400 SaO2% (BldA) [Mass fraction] 96 % Blaine Ann MD Work Phone: [facility] 12-15-2021 08:23-0400 Systolic blood pressure 134 mm[Hg] Blaine Ann MD Work Phone: [facility] 12-07-2021 11:32-0400 Body height 175.3 cm Denice Gr CLINICAL ASSOCIATE.SEWING MACHINE OPERATOR Work Phone: [facility] 12-07-2021 11:32-0400 Body weight 83.92 kg Denice Gr CLINICAL ASSOCIATE.SEWING MACHINE OPERATOR Work Phone: [facility] 11-27-2021 15:05-0400 Diastolic blood pressure 87 mm[Hg] Josué Blevins MD Work Phone: [facility] 11-27-2021 15:05-0400 Heart rate 72 /min Josué Blevins MD Work Phone: [facility] 11-27-2021 15:05-0400 Respiratory rate 16 /min Josué Blevins MD Work Phone: [facility] 11-27-2021 15:05-0400 SaO2% (BldA) [Mass fraction] 94 % Josué Blevins MD Work Phone: [facility] 11-27-2021 15:05-0400 Systolic blood pressure 127 mm[Hg] Josué Blevins MD Work Phone: [facility] 11-27-2021 14:48-0400 Body temperature 98.01 [degF] Josué Blevins MD Work Phone: [facility] 11-27-2021 14:19-0400 Body height 175.3 cm Josué Blevins MD Work Phone: [facility] 11-27-2021 14:19-0400 Body weight 83.92 kg Josué Blevins MD Work Phone: [facility] 11-23-2021 09:17-0400 Body height 175.3 cm Josué Blevins MD Work Phone: [facility] 11-23-2021 09:17-0400 Body weight 83.92 kg Josué Blevins MD Work Phone: [facility] 11-23-2021 09:17-0400 Diastolic blood pressure 78 mm[Hg] Josué Blevins MD Work Phone: [facility] 11-23-2021 09:17-0400 Heart rate 79 /min Josué Blevins MD Work Phone: [facility] 11-23-2021 09:17-0400 Systolic blood pressure 108 mm[Hg] Josué Blevins MD Work Phone: [facility] 11-12-2021 14:13-0400 Body weight 85.73 kg NA Palomares PA-C Work Phone: [facility] 11-12-2021 14:13-0400 Diastolic blood pressure 70 mm[Hg] NA Palomares PA-C Work Phone: [facility] 11-12-2021 14:13-0400 Heart rate 74 /min NA Palomares PA-C Work Phone: [facility] 11-12-2021 14:13-0400 Respiratory rate 16 /min NA Palomares PA-C Work Phone: [facility] 11-12-2021 14:13-0400 SaO2% (BldA) [Mass fraction] 94 % NA Palomares PA-C Work Phone: [facility] 11-12-2021 14:13-0400 Systolic blood pressure 112 mm[Hg] NA Palomares PA-C Work Phone: [facility] Encounters Encounter Date Encounter Type Care Provider Facility Start: 06-08-2023 End: 06-09-2023 ambulatory LILIAMLucius ROWELL Facility:[facility] Start: 05-25-2023 Telephone encounter Greg Martino MD Work Phone: [facility] Procedures Date Procedure Procedure Detail Performing Clinician Start: 01-26-2023 Mri brain brain stem w/o contrast material Urvashi Hughes SEWING MACHINE OPERATOR Work Phone: Start: 09-01-2022 Us breast uni [...] Work Phone: Start: 10-02-2014 Colonoscopy Denice darling CLINICAL ASSOCIATE.SEWING MACHINE OPERATOR Work Phone: Plan of Treatment Date Care Activity Detail Author Start: 11-13-2031 Urine microalbumin profile [facility] Start: 11-27-2026 Colonoscopy COLONOSCOPY [facility] Start: 11-27-2026 COLORECTAL CANCER SCREENING COLORECTAL CANCER SCREENING [facility] Start: 10-20-2025 DIABETES SCREEN DIABETES SCREEN [facility] Start: 10-20-2025 Diabetes Screening Diabetes Screenin g [facility] Start: 03-09-2025 DIABETES SCREEN DIABETES SCREEN [facility] Start: 11-12-2024 DIABETES SCREEN DIABETES SCREEN [facility] Start: 05-10-2024 Annual PCP Team Rose Grader pari Disease Visit Annual PCP Team Chronic Disease Visit [facility] Start: 05-10-2024 BP Controlled (<130/80) BP Controlle d (<130/80) [facility] Start: 02-14-2024 Lipid 1996 panel - S cintia or Plasma Lipid Screening [facility] Start: 02-14-2024 LIPID SCREEN LIPID SCREEN [facility] Start: 02-10-2024 BP CONTROLLED (<130/80) BP CONTROLLE D (<130/80) [facility] Start: 01-05-2024 ANNUAL PCP TEAM INVENTORY CONTROL ASSOCIATE PARI DISEASE VISIT ANNUAL PCP TEAM CHRONIC DISEASE VISIT [facility] Start: 12-10-2023 ANNUAL PCP TEAM INVENTORY CONTROL ASSOCIATE PARI DISEASE VISIT ANNUAL PCP TEAM CHRONIC DISEASE VISIT [facility] Start: 11-09-2023 ANNUAL PCP TEAM INVENTORY CONTROL ASSOCIATE PARI DISEASE VISIT ANNUAL PCP TEAM CHRONIC DISEASE VISIT [facility] Start: 09-17-2023 ANNUAL PCP TEAM INVENTORY CONTROL ASSOCIATE PARI DISEASE VISIT ANNUAL PCP TEAM CHRONIC DISEASE VISIT [facility] Start: 09-02-2023 Mammography [facility] Start: 08-16-2023 ANNUAL PCP TEAM INVENTORY CONTROL ASSOCIATE PARI DISEASE VISIT ANNUAL PCP TEAM CHRONIC DISEASE VISIT [facility] Start: 07-29-2023 ANNUAL PCP TEAM INVENTORY CONTROL ASSOCIATE PARI DISEASE VISIT ANNUAL PCP TEAM CHRONIC DISEASE VISIT [facility] Start: 07-29-2023 BP CONTROLLED (<130/80) BP CONTROLLE D (<130/80) [facility] Start: 05-26-2023 Influenza vaccination LUNG CANCER SC REENING [facility] Start: 05-25-2023 BP CONTROLLED (<130/80) BP CONTROLLE D (<130/80) [facility] Start: 05-14-2023 ANNUAL PCP TEAM INVENTORY CONTROL ASSOCIATE PARI DISEASE VISIT ANNUAL PCP TEAM CHRONIC DISEASE VISIT [facility] Start: 05-07-2023 BP CONTROLLED (<130/80) BP CONTROLLE D (<130/80) [facility] Start: 04-01-2023 ANNUAL PCP TEAM INVENTORY CONTROL ASSOCIATE PARI DISEASE VISIT ANNUAL PCP TEAM CHRONIC DISEASE VISIT [facility] Start: 04-01-2023 BP CONTROLLED (<130/80) BP CONTROLLE D (<130/80) [facility] Start: 04-01-2023 SHINGRIX VACCINE (2 of 2) ULLOA GRIX VACCINE (2 of 2) [facility] Immunizations Immunization Date Immunization Notes Care Provider Fa aurelia 04-01-2022 COVID-19 booster vaccine, age 12+ yr, bivalent (Lumexis) ASHLEY Palomares PA-C Work Phone: [facility] 04-01-2022 influenza, injectabl e, quadrivalent, contains preservative ASHLEY Palomares PA-C Work Phone: [facility] 04-01-2022 influenza virus vacc ine, unspecified formulation NA Palomares PA-C Work Phone: [facility] 11-12-2021 pneumococcal Conjuga te, unspecified formulation NA Palomares PA-C Work Phone: [facility] Work Phone: 11-12-2021 COVID-19 vaccine, ag e 12+ yr ([facility]) NA Palomares PA-C Work Phone: [facility] 11-12-2021 pneumococcal (PCV20) vaccine, 20 valent (PREVNAR 20) NA Palomares PA-C Work Phone: [facility] 11-12-2021 tetanus toxoid, redu ricky diphtheria toxoid, and acellular pertussis vaccine, adsorbed NA Palomares PA-C Work Phone: [facility] 11-12-2021 zoster vaccine recombinant NA Palomares PA-C Work Phone: [facility] 01-23-2021 COVID-19 vaccine (LEROY) NA Palomares PA-C Work Phone: [facility] 05-09-2019 influenza, seasonal, injectable NA Palomares PA-C Work Phone: [facility] 03-13-2018 influenza, injectabl e, quadrivalent, contains preservative NA Palomares PA-C Work Phone: [facility] Work Phone: 05-05-2017 influenza, injectabl e, quadrivalent, contains preservative NA Palomares PA-C Work Phone: [facility] Work Phone: 04-30-2016 influenza, seasonal, injectable, preservative free NA Palomares PA-C Work Phone: [facility] 02-27-2016 influenza, injectabl e, quadrivalent, contains preservative NA Palomares PA-C Work Phone: [facility] 02-26-2016 influenza, seasonal, injectable NA Palomares PA-C Work Phone: [facility] 06-04-2015 influenza, injectabl e, quadrivalent, contains preservative NA Palomares PA-C Work Phone: [facility] 06-04-2015 influenza, seasonal, injectable NA Palomares PA-C Work Phone: [facility] 06-03-2014 influenza, seasonal, injectable NA Palomares PA-C Work Phone: [facility] Work Phone: 05-02-2014 pneumococcal polysaccharide vaccine, 23 valent NA Palomares PA-C Work Phone: [facility] Work Phone: 06-20-2006 TD(adult) unspecifie d formulation NA Palomares PA-C Work Phone: [facility] 06-20-2006 tetanus and diphther ia toxoids, adsorbed, preservative free, for adult use (2 Lf of tetanus toxoid and 2 Lf of diphtheria toxoid) NA Palomares PA-C Work Phone: [facility] Payers Date Payer Category Payer Medicaid [id number] 2013 Medicaid [employer] [id number] 2013-Present [phone] [address] [place] [address] Medicaid [id number] 2013 Medicaid [id number] 2013 Unknown [id number] 1968 Unknown [id number] Social History Date Type Detail Facility Start: 10-14-2016 End: 10-14-2022 Tobacco smoking status NHIS Smokes tobacco daily [facility] History of tobacco use Cigarette Smoker C [facility] Start: 10-14-2016 End: 07-02-2022 Cigarettes smoked current (pack per day) - Reported 0.75 [facility] Start: 10-14-2016 End: 10-14-2022 Tobacco use and exposure Smokeless tobacco non-user [facility] Start: 06-18-2021 End: 08-27-2021 Alcohol intake Current drinker of alcohol (finding) [facility] Start: 07-23-2021 History SDOH Alcohol Frequency 1 [facility] Start: 07-23-2021 History SDOH Alcohol Std Drinks 5 [facility] Start: 07-23-2021 History SDOH Social Connections Get Together 2 [facility] Start: 07-23-2021 History SDOH Social Connections Meetings 3 [facility] Start: 07-23-2021 History SDOH Stress 4 [facility] Start: 09-29-2015 End: 02-11-2022 Tobacco Comment started smoking 12yr .5 to .75 of pack daily-in process of quitting as of 09/29/15 [facility] Start: 1970 Sex Assigned At Female [facility] Start: 08-17-2021 End: 05-07-2022 Exposure to SARS-CoV-2 (event) Not sure [facility] Start: 11-23-2021 End: 05-10-2023 Alcohol intake Ex-drinker (finding) [facility] Start: 02-20-2022 End: 03-02-2022 Exposure to SARS-CoV-2 (event) Unable to assess [facility] Start: 07-29-2022 Tobacco Comment started smoking 12yr, 3 cigs daily [facility] Start: 07-23-2021 End: 07-02-2022 Social connection and isolation panel [facility] Frequency of Communication with Friends and Family Not on file [facility] Work Phone: Do you belong to any clubs or organizations such as lutheran groups, unions, fraternal or athletic groups, or school groups? Yes [facility] Are you now , , , , never or living with a partner? [facility] How often to you hav e a drink containing alcohol? Never [facility] How many standard dr inks containing alcohol do you have on a typical day? 10 or more [facility] How hard is it for y ou to pay for the very basics like food, housing, medical care, and heating Hard [facility] Do you feel stress - tense, restless, nervous, or anxious, or unable to sleep at night because your mind is troubled all the time - these days [OSQ] Rather much [facility] ([facility]We) [facility]my[facility]our) food would run out before (I/we) got money to buy more. Sometimes true [facility] The food that (I/we) bought just didn't last, and (I/we) didn't have money to get more. Never true [facility] At any time in the p ast 12 months, were you homeless or living in [facility] [including now]? No [facility] Start: 03-05-2021 Gender identity Identifies as female gender (finding) [facility] Start: 03-05-2021 Sexual orientation Heterosexual (finding) [facility] Clinical Notes 05-02-2021 to 06-08-2023 Telephone Encounter - Agustina Guillen Ma - 05/25/2023 9:51 AM ESTTelephone Encounter - Flo Martino MD - 05/25/2023 9:38 AM Flo Reyna MD - 05/10/2023 11:12 AM EST Note Date & Type Note Facility 06-08-2023 Note HNO ID: [id number] Author: Liliam Rowell APRN.SEWING MACHINE OPERATOR Service: ? Author Type: Nurse Practitioner Type: Progress Notes Filed: 06/08/2023 1:03 PM Note Text: This is a 53 year old female who presents today with: Patient presents with: long-term follow up: zaki EVANGELISTA 06/06; transferred from [facility] HISTORY OF PRESENT ILLNESS: Mariluz Garcia is a 53 year old female. Patient presents with: long-term follow up: zaki EVANGELISTA 06/06; transferred from [facility] Pt presents today for hospital/long-term follow-up. Went to the hospital d/t arms and legs stopped working. Called squad to go to the ER. 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 Had C3-C5 ACDF on 05/18. Did well after surgery. Went to [facility] on 05/23 for additional rehab. Discharged from [...] on her discharge medication list. Nursing called long-term and verified that patient is taking metoprolol [...] care 05/15/2020 HOSPITAL/ER FOLLOW UP Which facility: [facility] Dates of visit: 05/10-05/13/2020 Preadmission evaluation: [...] of admission 05/01/2021 Date of discharge: Facility: [facility] 05/01/2021 presented to the emergency room with acute alcohol intoxication, initial alcohol level 7-8. Acknowledges over the last 5 months drinking 15 packs a day at 8% alcohol (joseaidan samaniego). Vital signs 96.6 F-78-18-111/73-98%. Appearance was no acute distress. WBC 7.9-Hgb 13.8-HCT 39 Encounter for support and coordination of transition of care 05/05/2022 05/05/2022 patient called squad, transported to [facility] with lightheadedness and multiple syncopal episodes one of them resulting in injury to her right foot. GERD (gastroesophageal reflux disease) Hyperglycemia Hypertension Lung abscess ([facility]) saw Néstor Li and Dr. Zarate. Major depression Mild protein-calorie malnutrition ([facility]) 08/26/2020 Obesity PE (pulmonary thromboembolism) ([facility]) PTSD (post-traumatic stress disorder) Snoring Tobacco use [...] Sig ibuprofen (MOT (more content not included)... [facility] 05-26-2023 Note HNO ID: [id number] Author: Rima Espinal PTA Service: ? Author Type: Immigration Specialist Type: Progress Notes Filed: 05/26/2023 4:36 PM Note Text: 05/26/2023 [facility] PHYSICAL THERAPY [...] scheduled additional follow-up appointments. Rima Espinal PTA [facility] 05-25-2023 Miscellaneous Notes Patient notified and in nursing facility at this time Agustina Guileln Ma Patient's MRI of the cervical spine ordered by our office has not been approved by her insurance. It appears she had MRI of cervical spine at [facility] on 05/16 and was hospitalized after a fall. Will cancel our order. F/u with PCP team for hospital discharge. documented in this encounter [facility] 05-20-2023 Miscellaneous Notes Completed forms faxed Forms to providers desk to review and complete. Type of form: CMN/Incontinence Order Form from [facility] Form received via fax When form is completed, Fax form to [phone] Form has been forwarded to Provider Mailbox: ALEIDA Diane documented in this encounter [facility] 05-10-2023 Note HNO ID: [id number] Author: Flo Martino MD Service: ? Author Type: Physician Type: Progress Notes Filed: 05/11/2023 4:49 PM Note Text: Chief Complaint Patient presents with: ER F/U: Numbness and tingling in Bilateral hands HPI Mariluz Garcia is a 53 year old female who presents here today for ER Follow Up.. Patient evaluated at [facility] ED on 04/29 for complaint of [...] care 05/15/2020 HOSPITAL/ER FOLLOW UP Which facility: [facility] Dates of visit: 05/10-05/13/2020 Preadmission evaluation: [...] of admission 05/01/2021 Date of discharge: Facility: [facility] 05/01/2021 presented to the emergency room with acute alcohol intoxication, initial alcohol level 7-8. Acknowledges over the last 5 months drinking 15 packs a day at 8% alcohol (natty daddy). Vital signs 96.6 F-78-18-111/73-98%. Appearance was no acute distress. WBC 7.9-Hgb 13.8-HCT 39 Encounter for support and coordination of transition of care 05/05/2022 05/05/2022 patient called squad, transported to [facility] with lightheadedness and multiple syncopal episodes one of them resulting in injury to her right foot. GERD (gastroesophageal reflux disease) Hyperglycemia Hypertension Lung abscess ([facility]) saw Néstor Li and Dr. Zarate. Major depression Mild protein-calorie malnutrition ([facility]) 08/26/2020 Obesity PE (pulmonary thromboembolism) ([facility]) PTSD (post-traumatic stress disorder) Snoring Tobacco use [...] daily. metoprolol succinate (more content not included)... [facility] 05-10-2023 History of Present illness Narrative Chief Complaint Patient presents with: ER F/U: Numbness and tingling in Bilateral hands HPI Mariluz Garcia is a 53 year old female who presents here today for ER Follow Up.. Patient evaluated at [facility] ED on 04/29 for complaint of [...] care 05/15/2020 HOSPITAL/ER FOLLOW UP Which facility: [facility] Dates of visit: 05/10-05/13/2020 Preadmission evaluation: [...] of admission 05/01/2021 Date of discharge: Facility: [facility] 05/01/2021 presented to the emergency room with acute alcohol intoxication, initial alcohol level 7-8. Acknowledges over the last 5 months drinking 15 packs a day at 8% alcohol (natty daddy). Vital signs 96.6 F-78-18-111/73-98%. Appearance was no acute distress. WBC 7.9-Hgb 13.8-HCT 39 Encounter for support and coordination of transition of care 05/05/2022 05/05/2022 patient called squad, transported to [facility] with lightheadedness and multiple syncopal episodes one of them resulting in injury to her right foot. GERD (gastroesophageal reflux disease) Hyperglycemia Hypertension Lung abscess ([facility]) saw Néstor Li and Dr. Zarate. Major depression Mild protein-calorie malnutrition ([facility]) 08/26/2020 Obesity PE (pulmonary thromboembolism) ([facility]) PTSD (post-traumatic stress disorder) Snoring Tobacco use [...] joint swelling, deformity, or tenderness. Neurologic: 4/5 museum exhibit designer strength bilaterally. 5/5 strength in arms. Decreased [...] Flo Martino MD documented in this encounter [facility] 03-11-2023 Note HNO ID: [id number] Author: Rima Espinal PTA Service: ? Author Type: Immigration Specialist Type: Progress Notes Filed: 03/11/2023 1:25 PM [...] on stairs Entered the pool assist level: Mcgee, With rail Aquatic Therapy (51616): Walking, Lower Extremity, Stretching and Flexibility, Vertical / [place] - Buoyancy Supported Walking: Forward Walking, Lateral/ Side Stepping Water Turbulence: #1 Forward Walking: x5 Lateral/Side Stepping: x5 Lower Extremity: Hip Flexion, Hip Extension, Hip Abduction, Hip Circumduction Hip Flexion: 2x10 Hip Extension: 2x10 Hip Abduction: 2x10 Hip Circumduction: 5/5ea Vertical/[place] - Buoyancy Supported : Hip Abduction/ Adduction, [...] Stop Time : 1322 Rima Espinal PTA [facility] 03-11-2023 History of Present illness Narrative Episode [...] on stairs Entered the pool assist level: Mcgee, With rail Aquatic Therapy (21278): Walking, Lower Extremity, Stretching and Flexibility, Vertical / [place] - Buoyancy Supported Walking: Forward Walking, Lateral/ Side Stepping Water Turbulence: #1 Forward Walking: x5 Lateral/Side Stepping: x5 Lower Extremity: Hip Flexion, Hip Extension, Hip Abduction, Hip Circumduction Hip Flexion: 2x10 Hip Extension: 2x10 Hip Abduction: 2x10 Hip Circumduction: 5/5ea Vertical/[place] - Buoyancy Supported : Hip Abduction/ Adduction, [...] Rima Espinal PTA documented in this encounter [facility] 03-09-2023 Miscellaneous Notes Completed and faxed. Type of form: DME Form received via fax When form is completed, Fax form to [phone] Form has been forwarded to Physician Mailbox: Faustino Mascorro LPN documented in this encounter [facility] 02-28-2023 Miscellaneous Notes Last OV: 01/04/23 - [...] Zoraida Garcia LPN documented in this encounter [facility] 02-16-2023 Note HNO ID: [id number] Author: Anay Esteban, PT Service: ? Author [...] up without use of hands on thighs Mcgee in home exercise program. Perform ADL's with decreased report of symptoms/pain in 6-8 weeks. Increased strength of (B) LE's by one full MMT grade or better Patient Goals: decreasde pain and improved function Planned Interventions, Frequency, and Duration: Current Frequency: 2x/week Duration: 8 weeks Total Number of Visits Planned: 16 Planned Treatment Interventions: Aquatic PT (56746), Therapeutic exercise (42553), Neuromuscular re-education (18626), Manual therapy (18829), Therapeutic activities (30516), Self-usp management (97323), Gait Training (72072), Group Therapy (52503) PLAN FOR NEXT VISIT: begin aquatic therapy Patient demonstrates good understanding of plan of care and treatment. The above goals and plan of care were discussed and agreed upon by patient/family. SUBJECTIVE: pain in the (R) hip and (L) leg. Pain shoots down the left leg. All was exacerbated from a fall last December. Hip is [id number]. Patient Goals: decreasde pain and improved function [...] Education: Education Learni (more content not included)... [facility] 02-16-2023 History of Present illness Narrative Episode [...] up without use of hands on thighs Mcgee in home exercise program. Perform ADL's with decreased report of symptoms/pain in 6-8 weeks. Increased strength of (B) LE's by one full MMT grade or better Patient Goals: decreasde pain and improved function Planned Interventions, Frequency, and Duration: Current Frequency: 2x/week Duration: 8 weeks Total Number of Visits Planned: 16 Planned Treatment Interventions: Aquatic PT (10527), Therapeutic exercise (11677), Neuromuscular re-education (33908), Manual therapy (51884), Therapeutic activities (93995), Self-usp management (68606), Gait Training (05788), Group Therapy (07385) PLAN FOR NEXT VISIT: begin aquatic therapy Patient demonstrates good understanding of plan of care and treatment. The above goals and plan of care were discussed and agreed upon by patient/family. SUBJECTIVE: pain in the (R) hip and (L) leg. Pain shoots down the left leg. All was exacerbated from a fall last December. Hip is [id number]. Patient Goals: decreasde pain and improved function [...] Anay Esteban PT documented in this encounter [facility] 02-14-2023 Note HNO ID: [id number] Author: Carmelita Ragsdale MD Service: ? Author [...] old premenopausal woman who presents to the [facility] today for evaluation of breast pain. She [...] care 05/15/2020 HOSPITAL/ER FOLLOW UP Which facility: [facility] Dates of visit: 05/10-05/13/2020 Preadmission evaluation: [...] of admission 05/01/2021 Date of discharge: Facility: [facility] 05/01/2021 presented to the emergency room with acute alcohol intoxication, initial alcohol level 7-8. Acknowledges over the last 5 months drinking 15 packs a day at 8% alcohol (natty daddy). Vital signs 96.6 F-78-18-111/73-98%. Appearance was no acute distress. WBC 7.9-Hgb 13.8-HCT 39 Encounter for support and coordination of transition of care 05/05/2022 05/05/2022 patient called squad, transported to [facility] with lightheadedness and multiple syncopal episodes one of them resulting in injury to her right foot. GERD (gastroesophageal reflux disease) Hyperglycemia Hypertension Lung abscess ([facility]) saw Néstor Li and Dr. Zarate. Major depression Mild protein-calorie malnutrition ([facility]) 08/26/2020 Obesity PE (pulmonary thromboembolism) ([facility]) PTSD (post-traumatic stress disorder) Snoring Tobacco use [...] NRV CARPAL T (more content not included)... [facility] 02-14-2023 Instructions Agustina Brown PA-C - 02/14/2023 11:18 AM EDT Patient to call [phone] for appointment with genetics. documented in this encounter [facility] 02-14-2023 History of Present illness Narrative Images [...] old premenopausal woman who presents to the [facility] for evaluation of breast pain. She [...] care 05/15/2020 HOSPITAL/ER FOLLOW UP Which facility: [facility] Dates of visit: 05/10-05/13/2020 Preadmission evaluation: [...] of admission 05/01/2021 Date of discharge: Facility: [facility] 05/01/2021 presented to the emergency room with acute alcohol intoxication, initial alcohol level 7-8. Acknowledges over the last 5 months drinking 15 packs a day at 8% alcohol (nataidan samaniego). Vital signs 96.6 F-78-18-111/73-98%. Appearance was no acute distress. WBC 7.9-Hgb 13.8-HCT 39 Encounter for support and coordination of transition of care 05/05/2022 05/05/2022 patient called squad, transported to [facility] with lightheadedness and multiple syncopal episodes [...] which included preparing to see the patient, [id number] patient care, completing clinical documentation, obtaining and/or [...] 2023 CC: Jenifer Yeager [address] [facility] [address] [address] [place] [address] documented in this encounter [facility] 02-14-2023 Miscellaneous Notes TC to pt who voiced understanding. Of results below. Jenifer Ngo LPN ----- Message from Urvashi Hughes APRN.SEWING MACHINE OPERATOR sent at 02/14/2023 7:30 AM EDT ----- EEG is normal and does not show any evidence of seizure activity. documented in this encounter [facility] 02-09-2023 Note HNO ID: [id number] Author: Ibeth Albert PA-C Service: ? Author Type: Physician Director Drug Type: Progress Notes Filed: 02/09/2023 11:04 AM Note Text: [facility]-C [facility] [address] [address] 02/09/2023 ASSESSMENT AND PLAN: Assessment : Encounter [...] back in 2012 or 2013 outside of [facility]. She has had intermittent LEFT [...] today with this patient visit. This includes wxrt-xn-tore time, review of chart records regarding conservative care history, spine-pertinent imaging, and communication/care coordination with referring provider, problem-specific history-taking and counseling/education regarding treatment options. cc: Jaimee Palomares [address] [facility] [address] Results of consultation to be transmitted via electronic medical record for those providers who practice within [facility] or with access to [employer] via MD Connect, or via letter. ################################# ################################# ###### CHIEF COMPLAINT: Lower back pain HPI: see Discussion above History of bowel or bladder dysfunction (not IBS or constipation): Yes, urgency and incontinence. (more content not included)... [facility] 02-07-2023 Miscellaneous Notes Pharmacy requesting refill [...] Fadumo Romero RN documented in this encounter [facility] 02-02-2023 Miscellaneous Notes I called patient regarding her upcoming new patient appointment on 02/14/[address] Ragsdale. She was referred by her SULPHATE TESTER Jenifer Yeager APRN. ALYSSA for dense breasts [...] Bria Burton MA documented in this encounter [facility] 01-31-2023 Miscellaneous Notes In review of patient chart, all below have been scheduled. Nothing further at this time. BETTY Fernandez TC to patient who verbalized understanding of providers message below with no questions at this time. Patient is asking that a production scheduler contact her to assist with rescheduling her cancelled EEG as well as to set her up with the ordered Neuropsychological Testing ordered at [facility]. Please contact patient and assist with above. Thank you!. BETTY Fernandez ----- Message from Urvashi Hughes APRN.SEWING MACHINE OPERATOR sent at 01/27/2023 7:44 AM EDT ----- Please let pt know her MRI of the brain does not show any new changes or concerns. Results are unchanged since her previous image in 03/2022. No findings to explain her recent symptoms. documented in this encounter [facility] 01-31-2023 Miscellaneous Notes Patient has been identified [...] advise. Fadumo Castañeda documented in this encounter [facility] 01-28-2023 Miscellaneous Notes Refill request: Requested Prescriptions [...] Fadumo Romero RN documented in this encounter [facility] 01-26-2023 Note HNO ID: [id number] Author: Bharti Gant RT(R) Service: ? Author [...] RT Benson(R) January 26, 2023 11:39 AM [facility] 01-26-2023 History of Present illness Narrative [...] 2023 11:39 AM documented in this encounter [facility] 01-14-2023 Miscellaneous Notes Letter written. Does she need to cancel her injection in [place] on 01/19? Deloris Troy III, [place], [place] Patient has called in asking for a release of care from our office as she will be going to a different Pain Management. She will also be going to the [place] office on to fill out the medical records release form. Please advise. Laura Villegas documented in this encounter [facility] 01-06-2023 Miscellaneous Notes Patient has been identified [...] Hanna Mares RN documented in this encounter [facility] 01-05-2023 Miscellaneous Notes I don't have another [...] Sruthi Piña LPM documented in this encounter [facility] 01-04-2023 Note HNO ID: [id number] Author: Jaimee Palomares PA-C Service: ? Author Type: Physician Director Drug Type: Progress Notes Filed: 01/05/2023 1:49 PM Note Text: 52 year old female with c/o ER hospital follow-up 12/29/2022 presented to [facility] emergency department with complaint of diffuse [...] care 05/15/2020 HOSPITAL/ER FOLLOW UP Which facility: [facility] Dates of visit: 05/10-05/13/2020 Preadmission evaluation: [...] of admission 05/01/2021 Date of discharge: Facility: [facility] 05/01/2021 presented to the emergency room with acute alcohol intoxication, initial alcohol level 7-8. Acknowledges over the last 5 months drinking 15 packs a day at 8% alcohol (marcin samaniego). Vital signs 96.6 F-78-18-111/73-98%. Appearance was no acute distress. WBC 7.9-Hgb 13.8-HCT 39 Encounter for support and coordination of transition of care 05/05/2022 05/05/2022 patient called squad, transported to [facility] with lightheadedness and multiple syncopal episodes (more content not included)... [facility] 01-03-2023 Miscellaneous Notes Patient called requesting the following refill. Requested Prescriptions Pending Prescriptions Disp Refills oxybutynin ER (DITROPAN XL) 10 mg 24 hr tablet [Pharmacy Med Name: Oxybutynin Chloride ER 10MG TB24] 30 tablet 11 Sig: TAKE 1 TABLET BY MOUTH DAILY Patient last appointment: 11/05/2022 Patient Phone numbers: [phone] (home) Request is for script(s) to be escript to pharmacy. Vu Moura Ma documented in this encounter [facility] 12-23-2022 Miscellaneous Notes Patient has been cancelled [...] request does not meet the guidelines.Guidelines used: [place] Administrative Code Rule 5160-4-12 Immunizations, injections and infusions (including trigger-point injections), skin substitutes, and provider-administered pharmaceuticals; [place] Administrative Code 5160-1-01; [facility] Trigger Point Injections (MM-0011) Date of Service 01/13/23 Is Peer to Peer Available? (Instructions below) Yes Peer to Peer Deadline Until (5 business days) Appeal Deadline (Instructions below) 180 calendars days from 12/18/22 Insurance Case Information Insurance Name Jv Patient's Insurance Case# [id number] Ordering Provider DELORIS TROY Approved Services Denied Services 91671 (CPT ) - TRIGGER POINT INJECTION MULTI 3+ MUSCLE GRP Alternative Recommendation N/A *Service which can be approved in place of denied service. Clinical Documentation Provided Peer to Peer Instructions Peer to Peer opt 1 Does Peer to Peer need to be scheduled? Yes, by leaving a voice mail requesting a call back. Who can complete the Peer to Peer? Dr, PA, YARD WAREHOUSE WORKER, LN Additional Peer to Peer Instructions You [...] required for appeal submission. Facility Information Location [facility] [id number] Tax ID# [id number] documented in this encounter [facility] 12-16-2022 Miscellaneous Notes No Show Documentation Mariluz [...] 2022 2:28 PM documented in this encounter [facility] 12-16-2022 Note HNO ID: [id number] Author: Urvashi Hughes APRN.CNP Service: ? Author Type: Nurse Practitioner Type: Progress Notes Filed: 12/16/2022 1:17 PM Note Text: [facility] [place] Follow-up Visit Follow-up note December 16, 2022 [...] Words, up to 2 trials: Face, Velvet, Yazidi, Yudith, Red (no points) 5/5 first try, [...] 1 error) (06/20) Serial subtraction by 7: [id number] (3 points for correct 4 or 5; 2 points for 2 or 3 correct; 1 point for 1 correct) [id number] (/) Language: repeat: I only know that [...] (2/2) Delayed recall: recall words: face, velvet, lutheran, yudith, red (0-5) (/5) Orientation: date(1), month(1), [...] DDD (degenerative di (more content not included)... [facility] 12-16-2022 History of Present illness Narrative Images from the original note were not included. [facility] [place] Follow-up Visit Follow-up note December 16, 2022 [...] Words, up to 2 trials: Face, Velvet, Yazidi, Yudith, Red (no points) 5/5 first try, [...] 1 error) (06/20) Serial subtraction by 7: 460-17-35-79-72-65 (3 points for correct 4 or 5; 2 points for 2 or 3 correct; 1 point for 1 correct) 901-08-02-79-71-66 (3/3) Language: repeat: I only know that [...] (2/2) Delayed recall: recall words: face, velvet, lutheran, yudith, red (0-5) (4/5) Orientation: date(1), month(1), [...] care 05/15/2020 HOSPITAL/ER FOLLOW UP Which facility: [facility] Dates of visit: 05/10-05/13/2020 Preadmission evaluation: [...] of admission 05/01/2021 Date of discharge: Facility: [facility] 05/01/2021 presented to the emergency room with acute alcohol intoxication, initial alcohol level 7-8. Acknowledges over the last 5 months drinking 15 packs a day at 8% alcohol (marcin josealfa). Vital signs 96.6 F-78-18-111/73-98%. Appearance was no acute distress. WBC 7.9-Hgb 13.8-HCT 39 Encounter for support and coordination of transition of care 05/05/2022 05/05/2022 patient called squad, transported to [facility] with lightheadedness and multiple syncopal episodes one of them resulting in injury to her right foot. GERD (gastroesophageal reflux disease) Hyperglycemia Hypertension Lung abscess ([facility]) saw Néstor Li and Dr. Zarate. Major depression Mild protein-calorie malnutrition ([facility]) 08/26/2020 Obesity PE (pulmonary thromboembolism) ([facility]) PTSD (post-traumatic stress disorder) Snoring Tobacco use [...] Abs Lymph 1.00 - 4.00 k/uL 1.75 [place]% % 9.1 Abs [place] <0.87 k/uL 0.67 [place]% % 4.1 Abs [...] Alcohol abuse, in remission F19.10 Polysubstance abuse ([facility]) Z79.899 Polypharmacy R26.89 Balance problem R29.6 Falls [...] which included preparing to see the patient, bmqb-me-tpla patient care, completing clinical documentation, obtaining and/or reviewing separately obtained history, performing a medically appropriate examination, counseling and educating the patient/family/caregiver, and ordering medications, tests, or procedures. documented in this encounter [facility] 12-10-2022 Miscellaneous Notes The following approved medication [...] to them. Pended. documented in this encounter [facility] 12-10-2022 Miscellaneous Notes Patient calls to request order for BP cuff be sent to DEYANIRA Powell. Faxed per request to [phone]. Hanna Mares RN documented in this encounter [facility] 12-09-2022 Note HNO ID: [id number] Author: Jaimee Palomares PA-C Service: ? Author Type: Physician Director Drug Type: Progress Notes Filed: 12/09/2022 7:56 PM [...] care 05/15/2020 HOSPITAL/ER FOLLOW UP Which facility: [facility] Dates of visit: 05/10-05/13/2020 Preadmission evaluation: [...] of admission 05/01/2021 Date of discharge: Facility: [facility] 05/01/2021 presented to the emergency room with acute alcohol intoxication, initial alcohol level 7-8. Acknowledges over the last 5 months drinking 15 packs a day at 8% alcohol (marcin samaniego). Vital signs 96.6 F-78-18-111/73-98%. Appearance was no acute distress. WBC 7.9-Hgb 13.8-HCT 39 Encounter for support and coordination of transition of care 05/05/2022 05/05/2022 patient called [facility], transported to [facility] with lightheadedness and multiple syncopal episodes one of them resulting in injury to her right foot. GERD (gastroesophageal reflux disease) Hyperglycemia Hypertension Lung abscess ([facility]CC) saw Néstor Li and Dr. Zarate. Major depression Mild protein-calorie malnutrition (HCC) 08/26/2020 Obesity PE (pulmonary thromboembolism) ([facility]) PTSD (post-traumatic stress disorder) Snoring Tobacco use [...] Spondylosis Without Myel (more content not included)... [facility] 12-09-2022 History of Present illness Narrative [...] care 05/15/2020 HOSPITAL/ER FOLLOW UP Which facility: [facility] Dates of visit: 05/10-05/13/2020 Preadmission evaluation: [...] of admission 05/01/2021 Date of discharge: Facility: [facility] 05/01/2021 presented to the emergency room with acute alcohol intoxication, initial alcohol level 7-8. Acknowledges over the last 5 months drinking 15 packs a day at 8% alcohol (marcin samaniego). Vital signs 96.6 F-78-18-111/73-98%. Appearance was no acute distress. WBC 7.9-Hgb 13.8-HCT 39 Encounter for support and coordination of transition of care 05/05/2022 05/05/2022 patient called squad, transported to [facility] with lightheadedness and multiple syncopal episodes one of them resulting in injury to her right foot. GERD (gastroesophageal reflux disease) Hyperglycemia Hypertension Lung abscess ([facility]) saw Néstor Li and Dr. Zarate. Major depression Mild protein-calorie malnutrition (HCC) 08/26/2020 Obesity PE (pulmonary thromboembolism) ([facility]) PTSD (post-traumatic stress disorder) Snoring Tobacco use [...] With Left-Sided Sciatica Pe (Pulmonary Thromboembolism) ([facility]) Hyperglycemia Stasis Edema Right Lumbar Radiculopathy Obesity, Class III, BMI >= 40 (morbid obesity) E66.01 Delusional Disorder ([facility]) Chronic Low Back Pain With Sciatica Abnormal Echocardiogram Chronic Left-Sided Low Back Pain With Sciatica Copd (Chronic Obstructive Pulmonary Disease) With Chronic Bronchitis ([facility]) Positive Urine Drug Screen Lumbar Spondylosis Cervical Spondylosis Without Myelopathy Other Chest Pain Stress Incontinence Chronic Active Hepatitis C ([facility]) History of Colonic Polyps Traumatic [...] Jaimee Palomares PA-C documented in this encounter [facility] 11-22-2022 Miscellaneous Notes Patient calling to say she was seen in [facility] ER today. She says she was [...] 7. :NO Protocols used: Blood Pressure - Ijox-[id number]-LA documented in this encounter [facility] 11-22-2022 Miscellaneous Notes Last OV: 11/08/22. - [...] Zoraida Garcia LPN documented in this encounter [facility] 11-08-2022 Note HNO ID: [id number] Author: Jaimee Palomares PA-C Service: ? Author Type: Physician Director Drug Type: Progress Notes Filed: 11/08/2022 8:05 PM [...] having emergency surgery for hernia sent to [facility]. Still having some flashes shoot [...] care 05/15/2020 HOSPITAL/ER FOLLOW UP Which facility: [facility] Dates of visit: 05/10-05/13/2020 Preadmission evaluation: [...] of admission 05/01/2021 Date of discharge: Facility: [facility] 05/01/2021 presented to the emergency room with acute alcohol intoxication, initial alcohol level 7-8. Acknowledges over the last 5 months drinking 15 packs a day at 8% alcohol (marcin samaniego). Vital signs 96.6 F-78-18-111/73-98%. Appearance was no acute distress. WBC 7.9-Hgb 13.8-HCT 39 Encounter for support and coordination of transition of care 05/05/2022 05/05/2022 patient called squad, transported to [facility] with lightheadedness and multiple syncopal episodes one of them resulting in injury to her right foot. GERD (gastroesophageal reflux disease) Hyperglycemia Hypertension Lung abscess ([facility]) saw Néstor Li and Dr. Zarate. Major depression Mild protein-calorie malnutrition ([facility]) 08/26/2020 Obesity PE (pulmonary thromboembolism) ([facility]) PTSD (post-traumatic stress disorder) Snoring Tobacco use [...] smoking 14yr, 3 (more content not included)... [facility] 10-26-2022 Miscellaneous Notes Patient has been [...] Maribell Baltazar LPN documented in this encounter [facility] 10-20-2022 Note HNO ID: [id number] Author: Jenifer Yeager APRN.AKOSUA Service: ? Author Type: Marine Radio Installer And Servicer Type: Progress Notes Filed: 10/20/2022 9:15 PM [...] L0 SAB0 IAB0 Ectopic0 Multiple0 Live Births0 Location And Measurement Technician History LMP: Hysterectomy Age at Menarche: Age at First : Age at Menopause: Location And Measurement Technician History Comments: Sexual Activity: Not Currently; No [...] care 05/15/2020 HOSPITAL/ER FOLLOW UP Which facility: [facility] Dates of visit: 05/10-05/13/2020 Preadmission evaluation: [...] of admission 05/01/2021 Date of discharge: Facility: [facility] 05/01/2021 presented to the emergency room with acute alcohol intoxication, initial alcohol level 7-8. Acknowledges over the last 5 months drinking 15 packs a day at 8% alcohol (marcin samaniego). Vital signs 96.6 F-78-18-111/73-98%. Appearance was no acute distress. WBC 7.9-Hgb 13.8-HCT 39 Encounter for support and coordination of transition of care 05/05/2022 05/05/2022 patient called squad, transported to [facility] with lightheadedness and multiple syncopal episodes [...] 800 mg table (more content not included)... [facility] 10-20-2022 Instructions Jenifer Yeager APRN.[facility] - 10/20/2022 11:32 AM EDT Management of Benign Breast Pain / Fibrocystic Changes Decrease or avoid intake of caffeine, including coffee, teas, sodas, and chocolate. Decrease or avoid nicotine. Wear a support or sports (not underwire) bra. Take cxcd-abj-feepiyq ibuprofen (Advil/Motrin) or other NSAIDs, such as naproxen (Aleve). Take 3 grams (3000 mg.) of evening primrose oil (available terj-qae-xavrkyg) in divided doses for 2 months. Take [...] your health care provider. You cannot purchase sjyy-sxz-dykpvky products to treat BV. Products for douching [...] swelling, or soreness around the vagina Copyright 6983-8103 [facility]. All rights reserved. This information is provided by the [facility] and is not intended to replace the medical advice of your doctor or health care provider. Please consult your health care provider for advice about a specific medical condition. For additional written health information, please contact the Health Information Center at the [facility] or toll-free extension [phone] or visit [email or web address] This document was last reviewed on: 2009 documented in this encounter [facility] 10-20-2022 History of Present illness Narrative Mariluz [...] L0 SAB0 IAB0 Ectopic0 Multiple0 Live Births0 Location And Measurement Technician History LMP: Hysterectomy Age at Menarche: Age at First : Age at Menopause: Location And Measurement Technician History Comments: Sexual Activity: Not Currently; No [...] care 05/15/2020 HOSPITAL/ER FOLLOW UP Which facility: [facility] Dates of visit: 05/10-05/13/2020 Preadmission evaluation: [...] of admission 05/01/2021 Date of discharge: Facility: [facility] 05/01/2021 presented to the emergency room with acute alcohol intoxication, initial alcohol level 7-8. Acknowledges over the last 5 months drinking 15 packs a day at 8% alcohol (marcin josealfa). Vital signs 96.6 F-78-18-111/73-98%. Appearance was no acute distress. WBC 7.9-Hgb 13.8-HCT 39 Encounter for support and coordination of transition of care 05/05/2022 05/05/2022 patient called squad, transported to [facility] with lightheadedness and multiple syncopal episodes one of them resulting in injury to her right foot. GERD (gastroesophageal reflux disease) Hyperglycemia Hypertension Lung abscess ([facility]) saw Néstor Li and Dr. Zarate. Major depression Mild protein-calorie malnutrition (HCC) 08/26/2020 Obesity PE (pulmonary thromboembolism) ([facility]) PTSD (post-traumatic stress disorder) Snoring Tobacco use [...] Jenifer Yeager APRN.CNM documented in this encounter [facility] 10-14-2022 Note HNO ID: [id number] Author: Shruthi Keita MA Service: ? Author Type: Evaluation Specialist Type: Progress Notes Filed: 10/14/2022 1:57 PM [...] and suicidal ideas. The patient is nervous/anxious. [facility] 10-14-2022 History of Present illness Narrative Review [...] [facility] Name: Mariluz Garcia : 1970 [...] Therapy (Aquatic) - completed her course at [facility]. Completed since July. Studies Obtained: [...] This information is taken directly from the new order clerk system. TECHNIQUE: Routine lumbosacral spine MR protocol [...] scoliotic curvature convex left visible on the industrial roofer helper. Emerado at L4-L5. Mild straightening of usual lumbar [...] impingement of the distal cord within the uzhde-mg-mpvh. Paraspinal soft tissues: As above. No paraspinal [...] annulus, and facet degenerative change contributes to vmes-px-aicvqtgv right foraminal narrowing. L4-L5: Disk bulging, loss [...] and assume there are 5 lumbar-type vertebrae. Carriage Dogger: CJ Transcribe Date/Time: Jun 05 2021 11:26A [...] holding to see if truly helping Functional Mandaeism: Home Exercise Program under provider supervisions - [...] [facility] [place] [facility] documented in this encounter [facility] 10-07-2022 Miscellaneous Notes Spoke with patient and [...] call and advise. documented in this encounter [facility] 10-06-2022 Note HNO ID: [id number] Author: Deloris Troy MD Service: ? Author Type: Physician Type: Progress Notes Filed: 10/14/2022 1:57 PM Note Text: [facility] Name: Mariluz Garcia : 1970 Purpose: [...] Therapy (Aquatic) - completed her course at [facility]. Completed since July. Studies Obtained: [...] This information is taken directly from the new order clerk system. TECHNIQUE: Routine lumbosacral spine MR protocol [...] scoliotic curvature convex left visible on the industrial roofer helper. Emerado at L4-L5. Mild straightening of usual lumbar lordosis and slightly kyphotic alignment at the level of L1 related to minimal old anterior wedging morphology of L1. Bone marrow signal/fracture: Advanced endplate degenerative change at L1-L2 through the L4 (more content not included)... [facility] 09-16-2022 Note HNO ID: [id number] Author: Jaimee Palomares PA-C Service: ? Author Type: Physician Director Drug Type: Progress Notes Filed: 09/16/2022 3:41 PM [...] Drug use 08/15/2018 ecstacy Emphysema of lung ([facility]) Encounter for support and coordination of transition of care 05/15/2020 HOSPITAL/ER FOLLOW UP Which facility: [facility] Dates of visit: 05/10-05/13/2020 Preadmission evaluation: [...] of admission 05/01/2021 Date of discharge: Facility: [facility] 05/01/2021 presented to the emergency room with acute alcohol intoxication, initial alcohol level 7-8. Acknowledges over the last 5 months drinking 15 packs a day at 8% alcohol (nataidan samaniego). Vital signs 96.6 F-78-18-111/73-98%. Appearance was no acute distress. WBC 7.9-Hgb 13.8-HCT 39 Encounter for support and coordination of transition of care 05/05/2022 05/05/2022 patient called squad, transported to [facility] with lightheadedness and multiple syncopal episodes one of them resulting in injury to her right foot. GERD (gastroesophageal reflux disease) Hyperglycemia Hypertension Lung abscess (HCC) saw Néstor Li and Dr. aZrate. Major depression Mild protein-calorie malnutrition (HCC) 08/26/2020 Obesity PE (pulmonary thromboembolism) ([facility]) PTSD (post-traumatic stress disorder) Snoring Tobacco use [...] Disc Disease), Lumbar Emphysema of Lung ([facility]) Tobacco Use Disorder Hypertension Gerd [...] (Chronic Obstructive Pulm (more content not included)... [facility] 09-16-2022 History of Present illness Narrative [...] Drug use 08/15/2018 ecstacy Emphysema of lung ([facility]) Encounter for support and coordination of transition of care 05/15/2020 HOSPITAL/ER FOLLOW UP Which facility: [facility] Dates of visit: 05/10-05/13/2020 Preadmission evaluation: [...] of admission 05/01/2021 Date of discharge: Facility: [facility] 05/01/2021 presented to the emergency room with acute alcohol intoxication, initial alcohol level 7-8. Acknowledges over the last 5 months drinking 15 packs a day at 8% alcohol (nataidan samaniego). Vital signs 96.6 F-78-18-111/73-98%. Appearance was no acute distress. WBC 7.9-Hgb 13.8-HCT 39 Encounter for support and coordination of transition of care 05/05/2022 05/05/2022 patient called squad, transported to [facility] with lightheadedness and multiple syncopal episodes one of them resulting in injury to her right foot. GERD (gastroesophageal reflux disease) Hyperglycemia Hypertension Lung abscess ([facility]) saw Néstor Li and Dr. Zarate. Major depression Mild protein-calorie malnutrition (HCC) 08/26/2020 Obesity PE (pulmonary thromboembolism) ([facility]) PTSD (post-traumatic stress disorder) Snoring Tobacco use [...] Jaimee Palomares PA-C documented in this encounter [facility] 09-01-2022 Miscellaneous Notes TC to pt, notified [...] let us know. documented in this encounter [facility] 09-01-2022 Note HNO ID: [id number] Author: Jenifer Escalante RDMS Service: ? Author Type: Personal Development Educator Type: Progress Notes Filed: 09/01/2022 2:51 PM [...] RDMS RVT September 01, 2022 2:51 PM [facility] 09-01-2022 Note HNO ID: [id number] Author: RT Angela(R) Service: ? Author Type: [...] RT Angela(R) September 01, 2022 1:58 PM [facility] 09-01-2022 History of Present illness Narrative [...] 2022 2:51 PM documented in this encounter [facility] 09-01-2022 History of Present illness Narrative Radiology [...] 2022 1:58 PM documented in this encounter [facility] 08-27-2022 Miscellaneous Notes Spoke to patient & advised provider just wanted to have a routine f/u in 3 months per her request & will decide if the 6 months appt at that time is necessary. Patient verbalized understanding of instructions. Scheduled with LISETTE 11/25 @ 145PM. 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 Author Type: Nurse Practitioner Type: Progress Notes Filed: 08/26/2022 1:20 PM Note Text: [facility] [place] Follow-up Visit Follow-up note August 26, 2022 [...] day by day. 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 States she can remember [...] Words, up to 2 trials: Face, Velvet, Yazidi, Yudith, Red (no points) 3/5 first try, [...] 1 error) (0/1) Serial subtraction by 7: 604-59-56-79-72-65 (3 points for correct 4 or 5; 2 points for 2 or 3 correct; 1 point for 1 correct) 680-71-20-71-64-57 (3/3) Language: repeat: I only know that [...] (2/2) Delayed recall: recall words: face, velvet, lutheran, yudith, red (0-5) (5/5) Orientation: date(1), month(1), [...] care 05/15/2020 HOSPITAL/ER FOLLOW UP Which facility: [facility] Dates of visit: 05/10-05/13/2020 Preadmission evaluation: ER with right-sided abdominal pain over 2-1/2 hours, 10 out of 10. Worse (more content not included)... [facility] 08-26-2022 History of Present illness Narrative Images from the original note were not included. [facility] [place] Follow-up Visit Follow-up note August 26, 2022 [...] day by day. 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 States she can remember [...] Words, up to 2 trials: Face, Velvet, Yazidi, Yudith, Red (no points) 3/5 first try, [...] 1 error) (0/1) Serial subtraction by 7: 665-46-88-79-72-65 (3 points for correct 4 or 5; 2 points for 2 or 3 correct; 1 point for 1 correct) 416-61-17-71-64-57 (/) Language: repeat: I only know that [...] (2/2) Delayed recall: recall words: face, velvet, lutheran, yudith, red (0-5) (10/22) Orientation: date(1), month(1), [...] Drug use 08/15/2018 ecstacy Emphysema of lung ([facility]) Encounter for support and coordination of transition of care 05/15/2020 HOSPITAL/ER FOLLOW UP Which facility: [facility] Dates of visit: 05/10-05/13/2020 Preadmission evaluation: [...] of admission 05/01/2021 Date of discharge: Facility: [facility] 05/01/2021 presented to the emergency room with acute alcohol intoxication, initial alcohol level 7-8. Acknowledges over the last 5 months drinking 15 packs a day at 8% alcohol (nataidan samaniego). Vital signs 96.6 F-78-18-111/73-98%. Appearance was no acute distress. WBC 7.9-Hgb 13.8-HCT 39 Encounter for support and coordination of transition of care 05/05/2022 05/05/2022 patient called squad, transported to [facility] with lightheadedness and multiple syncopal episodes one of them resulting in injury to her right foot. GERD (gastroesophageal reflux disease) Hyperglycemia Hypertension Lung abscess (HCC) saw Néstor Li and Dr. Zarate. Major depression Mild protein-calorie malnutrition (HCC) 08/26/2020 Obesity PE (pulmonary thromboembolism) ([facility]) PTSD (post-traumatic stress disorder) Snoring Tobacco use [...] Abs Lymph 1.00 - 4.00 k/uL 1.75 [place]% % 9.1 Abs [place] <0.87 k/uL 0.67 E[place]% % 4.1 Abs [...] which included preparing to see the patient, [id number] patient care, completing clinical documentation, obtaining and/or reviewing separately obtained history, performing a medically appropriate examination, and counseling and educating the patient/family/caregiver. documented in this encounter [facility] 08-17-2022 Miscellaneous Notes Patient has been identified [...] Sruthi Piña LPN documented in this encounter [facility] 08-16-2022 Miscellaneous Notes Last OV: 08/16/22 Patient has been identified by name and date of : Yes Requested Prescriptions Pending Prescriptions Disp Refills Cholecalciferol, Vitamin D3, (VITAMIN D) 25 mcg (1,000 unit) cap 90 capsule 1 Sig: Take 1 capsule by mouth once daily. RX INSTRUCTIONS: Pharmacy initiated this request. No need to notify patient. Zoraida Garcia LPN documented in this encounter [facility] 08-16-2022 Note HNO ID: [id number] Author: Jaimee Palomares PA-C Service: ? 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 Interval history: none. Current medications: Albuterol [...] suspicious mass or adenopathy. 05/05/2022 CTA chest [facility] admit: Mild peribronchial thickening with layered [...] Radiculopathy, lumbar region Pain management Dr. Troy, [facility] Current medications: Baclofen 10mg twice a day as needed Pregabalin 150mg twice a day Consult PT Can't sleep. Shooting pain from left buttock down leg in to left foot. 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 Taking everything she can. Tearful, c/o no one treating her pain. Wants medication for pain. States she wants surgery: see neurosurgeon at [facility] 06/24/2022 CT cervical spine without contrast [facility] ED, comparison 05/05/2022: Degenerative changes of [...] of Onset Hy (more content not included)... [facility] 08-16-2022 Instructions Jaimee Palomares PA-C - 08/16/2022 11:47 AM EST See piriformis stretches; try 2-3 times a day. 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 Interval history: none. Current medications: Albuterol [...] Radiculopathy, lumbar region Pain management Dr. Troy, [facility] Current medications: Baclofen 10mg twice a day as needed Pregabalin 150mg twice a day Consult PT Can't sleep. Shooting pain from left buttock down leg in to left foot. 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 Taking everything she can. Tearful, c/o no one treating her pain. Wants medication for pain. States she wants surgery: see neurosurgeon at [facility] 06/24/2022 CT cervical spine without contrast [facility] ED, comparison 05/05/2022: Degenerative changes of [...] care 05/15/2020 HOSPITAL/ER FOLLOW UP Which facility: [facility] Dates of visit: 05/10-05/13/2020 Preadmission evaluation: [...] of admission 05/01/2021 Date of discharge: Facility: [facility] 05/01/2021 presented to the emergency room [...] malnutrition (HCC) 08/26/2020 Obesity PE (pulmonary thromboembolism) ([facility]) PTSD (post-traumatic stress disorder) Snoring Tobacco use [...] ICD9: 492.8, ICD10: J43.2 Stable, follows with [facility] 6. Alcohol abuse - ICD9: 305.00, [...] relief [facility] Encouraged f/u with pain management Jaimee Palomares PA-C Some of this note may have been copied and pasted for the purpose of history context and comparison. documented in this encounter [facility] 08-12-2022 Miscellaneous Notes Patient phones requesting refills as follows: Requested Prescriptions Pending Prescriptions Disp Refills omeprazole (PRILOSEC) 20 mg capsule [Pharmacy Med Name: Omeprazole 20MG CPDR] 30 capsule 5 Sig: TAKE 1 CAPSULE BY MOUTH DAILY Please review and advise. Alison Demarco Ma documented in this encounter [facility] 08-05-2022 Miscellaneous Notes CORY: 07/29/22 NOV 08/16/22 [...] Stephany Bowser Pss documented in this encounter [facility] 07-29-2022 Note HNO ID: [id number] Author: Memo Huber MD Service: ? Author [...] other than her urine is strong. No drip molder issues. Mild occasional headaches. No neuro issues. Had ct of chest done in 06/10 Had mri of the brain in the fall. Ct of head and spine recently after a fall. Had drip molder exam in 06/10 and has had a [...] care 05/15/2020 HOSPITAL/ER FOLLOW UP Which facility: [facility] Dates of visit: 05/10-05/13/2020 Preadmission evaluation: [...] of admission 05/01/2021 Date of discharge: Facility: [facility] (more content not included)... [facility] 07-29-2022 Note HNO ID: [id number] Author: Shruthi Keita MA Service: ? Author Type: Evaluation Specialist Type: Progress Notes Filed: 07/29/2022 1:46 PM [...] for suicidal ideas. The patient is nervous/anxious. [facility] 07-29-2022 Note HNO ID: [id number] Author: Deloris Troy MD Service: ? Author Type: Physician Type: Progress Notes Filed: 07/29/2022 1:46 PM Note Text: [facility] Today's Date: 07/29/2022 Last Visit: 06/03/2022 Name: Mariluz aGrcia : 1970 Chief complaint: neck and low [...] DATE OF EXAM: Jun 05 2021 10:50AM [facility] 0303 - MRI LUMBAR SPINE WO [...] This information is taken directly from the new order clerk system. TECHNIQUE: Routine lumbosacral spine MR protocol [...] scoliotic curvature convex left visible on the industrial roofer helper. Emerado at L4-L5. Mild straightening of usual lumbar lordosis and slightly kyphotic alignment at the level of L1 related to minimal old anterior wedging morphology of L1. Bone marrow signal/fracture: Advanced endplate degenerative change at L1-L2 through the L4-L5 level. Type I endplate changes, which may contribute to mechanical back pain. Multilevel endplate irregularities which have (more content not included)... [facility] 07-21-2022 Miscellaneous Notes Fax written and sent to Lynda. Please advise Lynda Mcgraw may d/c O2. Thanks, Faustino Palomares PA-C documented in this encounter [facility] 07-16-2022 Miscellaneous Notes Last Office Visit: 05/14/2022 [...] Last Labs: 05/07/2022 documented in this encounter [facility] 07-14-2022 Miscellaneous Notes Patient has been identified [...] Fadumo Romero, RN documented in this encounter [facility] 06-24-2022 Miscellaneous Notes Patient contacted Nurse Triage [...] Please update patient. Thank you, Shira Kam APRN.SEWING MACHINE OPERATOR Patient pharmacy called [facility] directions does not match quantity patient will only have a 15 day supply with directions on the script, please advise. documented in this encounter [facility] 06-24-2022 Miscellaneous Notes Patient call in for [...] left leg are bad Protocols used: Hip [id number] documented in this encounter [facility] 06-18-2022 Miscellaneous Notes Correct this was completed yesterday and the order was faxed. I think this was done. Thanks, Faustino Palomares PA-C Pt called in and reports she gets her incontinence supplies through [facility]. The phone number for them is [phone] fax # [phone]. She states they told her she needs [...] the providers office. documented in this encounter [facility] 06-18-2022 Miscellaneous Notes Opened in error. Fadumo Romero RN documented in this encounter [facility] 06-18-2022 Miscellaneous Notes [facility] Telephone Medication Refill Request Name/dose: Baclofen 10mg tablet Amount dispensed monthly: 60 Date last filled: 05/31/2022 Date last seen in office: 06/03/2022 Provider: Shira Kam Next scheduled visit: 07/05/2022 Pharmacy: [facility] [address] [place] [address] - [address] [phone] Nita Gabriel LPN June 18, 2022 11:10 AM documented in this encounter [facility] 06-16-2022 History of Present illness Narrative Pt arrived to [address] [place] [address] for Physical Therapy appointment. It was determined that the patient and the patient's referring provider were wanting a course of aquatic therapy for the patient's back pain. There is no aquatic therapy provided at this location, and so the patient was directed to [facility]. This PT printed off the patient's PT order and handed it to her. The patient then left the PT department. James Cole PT documented in this encounter [facility] 06-16-2022 Miscellaneous Notes Waiting to hear from [...] send order to. documented in this encounter [facility] 06-03-2022 Miscellaneous Notes Sent in consult to physical therapy, confirmation number is [id number] documented in this encounter [facility] 06-03-2022 Note HNO ID: [id number] Author: Shira Kam APRN.SEWING MACHINE OPERATOR Service: ? Author Type: Nurse Practitioner Type: Progress Notes Filed: 06/03/2022 11:49 AM Note Text: [facility] Today's Date: 06/03/2022 Last Visit: Name: [...] from several providers 06/03/2022 by Shira Kam APRN.SEWING MACHINE OPERATOR Allergies: ALLERGIES Allergen Reactions Fentanyl Other: See [...] This information is taken directly from the new order clerk system. TECHNIQUE: Routine lumbosacral spine MR protocol [...] scoliotic curvature convex left visible on the industrial roofer helper. Emerado at L4-L5. Mild straightening of usual lumbar [...] impingement of the distal cord within the tdxak-hp-ullu. Paraspinal soft tissues: As above. No paraspinal masses are evident. Lower thoracic spine: Canal and foramina are normally patent at T11-T12. Facet degenerative changes are present at this level, but no significant impact on canal or foraminal patenc (more content not included)... [facility] 06-03-2022 Note HNO ID: [id number] Author: Shruthi Keita MA Service: ? Author Type: Evaluation Specialist Type: Progress Notes Filed: 06/03/2022 11:49 AM [...] for suicidal ideas. The patient is nervous/anxious. [facility] 06-03-2022 Miscellaneous Notes 1.Are you diabetic No [...] vaccine.) Noy Mcintosh documented in this encounter [facility] 06-03-2022 Instructions Shira Kam APRN.ALYSSA - 06/03/2022 11:32 AM EST Activity as tolerated Use Ice and/or heat as tolerated as needed documented in this encounter [facility] 06-03-2022 History of Present illness Narrative Images from the original note were not included. [facility] Today's Date: 06/03/2022 Last Visit: Name: [...] from several providers 06/03/2022 by Shira Kam APRN.SEWING MACHINE OPERATOR Allergies: ALLERGIES Allergen Reactions Fentanyl Other: See [...] This information is taken directly from the new order clerk system. TECHNIQUE: Routine lumbosacral spine MR protocol [...] scoliotic curvature convex left visible on the industrial roofer helper. Emerado at L4-L5. Mild straightening of usual lumbar [...] impingement of the distal cord within the yzeeq-pg-dpsf. Paraspinal soft tissues: As above. No paraspinal [...] annulus, and facet degenerative change contributes to nbzn-xo-jaanmvmw right foraminal narrowing. L4-L5: Disk bulging, loss [...] and assume there are 5 lumbar-type vertebrae. Carriage Dogger: PSCB Transcribe Date/Time: Jun 05 2021 11:26A [...] and an alternative NSAID, she declined Functional Mandaeism: Physical Therapy (Aquatic) Additional Studies: Referrals: Additional: [...] decision making from today's date. Shira Kam APRN.SEWING MACHINE OPERATOR Pain Management [facility] Review of Systems Constitutional: Negative for [...] patient is nervous/anxious. documented in this encounter [facility] 05-31-2022 Miscellaneous Notes Spoke with pt and [...] Faustino Palomares PA-C documented in this encounter [facility] 05-26-2022 Miscellaneous Notes Patient requesting to have [...] Jenifer Yeager APRN.CNM documented in this encounter [facility] 05-25-2022 History of Present illness Narrative Mariluz [...] L0 SAB0 IAB0 Ectopic0 Multiple0 Live Births0 Location And Measurement Technician History LMP: Hysterectomy Age at Menarche: Age at First : Age at Menopause: Location And Measurement Technician History Comments: Sexual Activity: Not Currently; No [...] care 05/15/2020 HOSPITAL/ER FOLLOW UP Which facility: [facility] Dates of visit: 05/10-05/13/2020 Preadmission evaluation: [...] of admission 05/01/2021 Date of discharge: Facility: [facility] 05/01/2021 presented to the emergency room [...] external genitalia normal, normal Bartholin's glands, urethra, [place]'s glands, no vulvar lesions, no cervical lesions, [...] Jenifer Yeager APRN.CNM documented in this encounter [facility] 05-21-2022 Miscellaneous Notes Patient has been identified [...] Fadumo Romero RN documented in this encounter [facility] 05-20-2022 Miscellaneous Notes Patient has visit tomorrow with PIPE WRAPPING MACHINE OPERATOR she is going to take her cuff [...] fine. Asking pcp to send order to [facility] for a new BP monitor. documented in this encounter [facility] 05-14-2022 History of Present illness Narrative 52 year old female with c/o hospital follow up 05/05/2022 patient called [facility], transported to [facility] with lightheadedness and multiple syncopal episodes [...] care 05/15/2020 HOSPITAL/ER FOLLOW UP Which facility: [facility] Dates of visit: 05/10-05/13/2020 Preadmission evaluation: [...] of admission 05/01/2021 Date of discharge: Facility: [facility] 05/01/2021 presented to the emergency room [...] malnutrition (HCC) 08/26/2020 Obesity PE (pulmonary thromboembolism) ([facility]) PTSD (post-traumatic stress disorder) Snoring Tobacco use [...] months. Educated on lung nodule recurrence in [place]. - CT CHEST WO IVCON 3. Syncope, [...] Jaimee Palomares PA-C documented in this encounter [facility] 05-11-2022 Miscellaneous Notes TC to patient who [...] Memo Leahy MD documented in this encounter [facility] 05-07-2022 History of Present illness Narrative NEW [...] anxiety and hearing voices. Pt was in [facility] ER yesterday due to syncope, hypotension [...] and bkwd) Sentence repeat: 07/22 Serial 7s: [id number] 08/20 Similar objects: 07/22 Orientation: May 07, [...] care 05/15/2020 HOSPITAL/ER FOLLOW UP Which facility: [facility] Dates of visit: 05/10-05/13/2020 Preadmission evaluation: [...] of admission 05/01/2021 Date of discharge: Facility: [facility] 05/01/2021 presented to the emergency room [...] malnutrition (HCC) 08/26/2020 Obesity PE (pulmonary thromboembolism) ([facility]) PTSD (post-traumatic stress disorder) Snoring Tobacco use [...] which included preparing to see the patient, ngcd-oe-bbig patient care, completing clinical documentation, obtaining and/or reviewing separately obtained history, performing a medically appropriate examination, counseling and educating the patient/family/caregiver, ordering medications, tests, or procedures, independently interpreting results (not separately reported), and communicating results to the patient/family/caregiver. documented in this encounter [facility] 05-07-2022 Miscellaneous Notes Patient called in leaving a voicemail asking for a call back. Nothing was stated what it was about. Sheila Granado documented in this encounter [facility] 04-23-2022 Miscellaneous Notes Patient has been identified [...] Maribell Baltazar LPN documented in this encounter [facility] 04-19-2022 Miscellaneous Notes Pt calls to report she takes 2-3 ibuprofen 800 tabs daily but only gets prescribed #30 rf 1 so pt runs out of medication quickly. Pt reports she did not get any ibuprofen in this month's delivery from [facility] and was advised that she needed a [...] Zoraida Garcia LPN documented in this encounter [facility] 04-01-2022 Instructions M Cici Palomares PA-C - 04/01/2022 9:37 AM EDT Desvenlafaxine: Patient drug information Access [employer] Online for additional drug information, tools, and databases. Copyright 9452-1805 [employer]. All rights reserved. (For additional information see [...] much, and when it happened. Last Reviewed [id number] Consumer Information Use and Disclaimer This information [...] of this information is governed by the [employer] End User License Agreement, available at https://www.[employer], formerly [employer].Lucky Ant/en/ solutions/Gengo/about/garcia. 2020 [employer]. and its affiliates and/or licensors. All rights reserved. Use of barcoo is subject to the Subscription and License Agreement. Topic 79863 Version 147.0 documented in this encounter [facility] 04-01-2022 History of Present illness Narrative 52 [...] care 05/15/2020 HOSPITAL/ER FOLLOW UP Which facility: [facility] Dates of visit: 05/10-05/13/2020 Preadmission evaluation: [...] of admission 05/01/2021 Date of discharge: Facility: [facility] 05/01/2021 presented to the emergency room [...] for med follow up- will schedule Jaimee Paolmares PA-C documented in this encounter [facility] 03-26-2022 Miscellaneous Notes Refill approved. Has appointment in April. Deloris Troy III, [place], [place] [facility] Telephone Medication Refill Request Name/dose: BACLOFEN 10 Amount dispensed monthly: 60 Date last filled: 01/01/22 Date last seen in office: 04/16/2021 Provider: Deloris Troy MD Next scheduled visit: 05/06/22 Pharmacy: [facility] - [address] [place] [address] - [address] [phone] [address] [place] [address] Odalys Brizuela MA documented in this encounter [facility] 03-25-2022 Miscellaneous Notes Patient arrived 17 minutes [...] which was the first available at the [place] office. documented in this encounter [facility] 03-17-2022 History of Present illness Narrative KARINA [...] care 05/15/2020 HOSPITAL/ER FOLLOW UP Which facility: [facility] Dates of visit: 05/10-05/13/2020 Preadmission evaluation: [...] of admission 05/01/2021 Date of discharge: Facility: [facility] 05/01/2021 presented to the emergency room [...] TIME: 11:11 AM documented in this encounter [facility] 03-15-2022 Miscellaneous Notes Pharmacy calls in requesting the following refill(s): Requested Prescriptions Pending Prescriptions Disp Refills ibuprofen (MOTRIN) 800 mg tablet 30 tablet 1 Sig: Take 1 tablet by mouth every 8 hours as needed for pain. Take with food. documented in this encounter [facility] 03-11-2022 Miscellaneous Notes Patient approved for Hep C treatment through medicaid, will ship from [facility]. Patient to call when receives medication in hand to review treatment protocol and follow up labs. Requested Prescriptions Pending Prescriptions Disp Refills sofosbuvir-velpatasvir 400-100 mg 28 tablet 2 Sig: Take one tablet by mouth, with or without food, once daily same time of day Bharti Sherman CMA documented in this encounter [facility] 02-26-2022 Miscellaneous Notes Patient has been identified [...] Jaimee Foster RN documented in this encounter [facility] 02-25-2022 History of Present illness Narrative 51 year old female with c/o low BP, dizziness which start Tuesday. 17 minutes late for appointment. 02/24/2022 transforaminal injection L5-S1 bilateral Dr. Troy. Was dizzy with low BP but had procedure anyway. Stumbled in their office but didn't pass out. Was NPO after midnight. Sent from their office to the emergency department 02/24/2022 arrived at [facility] emergency department with complaint of hypertension, [...] care 05/15/2020 HOSPITAL/ER FOLLOW UP Which facility: [facility] Dates of visit: 05/10-05/13/2020 Preadmission evaluation: [...] of admission 05/01/2021 Date of discharge: Facility: [facility] 05/01/2021 presented to the emergency room [...] malnutrition (HCC) 08/26/2020 Obesity PE (pulmonary thromboembolism) ([facility]) PTSD (post-traumatic stress disorder) Snoring Tobacco use [...] Received no reply to staff message to falafel cart cook Dr. Josué Blevins: We will have appointment [...] Jaimee Palomares PA-C documented in this encounter [facility] 02-24-2022 Miscellaneous Notes Notified pt of message below. Left appt as scheduled with Faustino at current time. Will route to Faustino to notify him of what's going on. Liliana London Ma I would go today to er Patient calling to say she had spinal injection done at [facility] today and her blood pressure was low [...] Laina Orellana RN documented in this encounter [facility] 02-24-2022 Nurse Note Patient advised to notify [...] is eating crackers. documented in this encounter [facility] 02-24-2022 Miscellaneous Notes OPERATIVE/PROCEDURE REPORT LOG ID: [id number] SURGERY/PROCEDURE DATE: 02/24/2022 INCISION/PROCEDURE START TIME: 10:05 AM INCISION CLOSE/PROCEDURE END TIME: 10:19 AM SURGEON(S)/PROCEDURALIST(S) AND STORES CLERK(S): Surgeon(s) and Role: * Deloris Troy MD [...] TIME: 10:21 AM documented in this encounter [facility] 02-24-2022 History and physical note UPDATED HISTORY [...] TIME: 9:46 AM documented in this encounter [facility] 02-23-2022 Miscellaneous Notes I have attempted to contact this patient by phone, Left brief message on cell voicemail stating to give us a call back at [phone] Laura Pena documented in this encounter [facility] 02-17-2022 Miscellaneous Notes Order signed by Dr. Huber and faxed back to [facility]. Suzie Powell documented in this encounter [facility] 02-11-2022 History of Present illness Narrative 51 year old female with c/o here for medication follow up. 01/01/2022 tripped and fell landing on her outstretched right wrist, with deformity she went to [facility] ED where x-rays confirmed fracture right distal radius Palomares's fracture with comminuted intra-articular distal radial fracture and angulated fragment, wrist was reduced under anesthesia. She was splinted and referred to [place] [facility] Dr. Prasanth Jones. 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 Interval history: no recent testing [...] Hair falling out Sees Dr. Renata Turner [facility] Stress incontinence Current medications: Bacterial vaginosis Not [...] Drug use 08/15/2018 ecstacy Emphysema of lung ([facility]) Encounter for support and coordination of transition of care 05/15/2020 HOSPITAL/ER FOLLOW UP Which facility: [facility] Dates of visit: 05/10-05/13/2020 Preadmission evaluation: [...] of admission 05/01/2021 Date of discharge: Facility: [facility] 05/01/2021 presented to the emergency room with acute alcohol intoxication, initial alcohol level 7-8. Acknowledges over the last 5 months drinking 15 packs a day at 8% alcohol (natty daddy). Vital signs 96.6 F-78-18-111/73-98%. Appearance was no acute distress. WBC 7.9-Hgb 13.8-HCT 39 GERD (gastroesophageal reflux disease) Hyperglycemia Hypertension Lung abscess ([facility]) saw Néstor iL and Dr. Zarate. Major depression Mild protein-calorie malnutrition (HCC) 08/26/2020 Obesity PE (pulmonary thromboembolism) ([facility]) PTSD (post-traumatic stress disorder) Snoring Tobacco use [...] (HCC) - ICD9: 297.1, ICD10: F22 Sees [facility], stable- stopped latuda, has follow up - CBC + DIFF - COMP METABOLIC PANEL - TSH BLD 16. Stress incontinence - ICD9: [id number], ICD10: N39.3 Oxybutynin did not help. Discussed [...] Jaimee Palomares PA-C documented in this encounter [facility] 02-05-2022 Instructions Abi Davey PA-C - 02/05/2022 [...] types of injections. documented in this encounter [facility] 02-05-2022 History of Present illness Narrative AMBULATORY [...] or double vision) Respiratory: Negative (No Cough, Pabbquybv-vs-xjyfav, Dyspnea on exertion, wheezing) Cardiovascular: Negative (No [...] ([place]) [facility] [place] [facility] documented in this encounter [facility] 01-29-2022 Miscellaneous Notes Patient has been identified [...] Maribell Baltazar LPN documented in this encounter [facility] 01-29-2022 Miscellaneous Notes Patient call and LVM stated she missed her appt on 01/[address] Troy and needs to reschedule. I have attempted to contact this patient by phone, Left brief message on cell voicemail stating to call back to reschedule. Cris Lopez Methods And Procedures Analyst to Dr. Roy, Dr. Palma, Workers Compensation [facility] P: [id number] / F: [phone] / documented in this encounter [facility] 01-27-2022 Instructions Abi Davey PA-C - 01/27/2022 [...] types of injections. documented in this encounter [facility] 01-27-2022 History of Present illness Narrative AMBULATORY [...] stenosis. Interval History: Since last encounter, Mariluz Gracia reports that the chronic problem(s) listed above [...] or double vision) Respiratory: Negative (No Cough, Crggvzuum-ms-eauikn, Dyspnea on exertion, wheezing) Cardiovascular: Negative (No [...] ([place]) [facility] documented in this encounter [facility] 01-18-2022 History of Present illness Narrative Mariluz [...] external genitalia normal, normal Bartholin's glands, urethra, [place]'s glands, no vulvar lesions, good vaginal support, [...] 4 - Moderate documented in this encounter [facility] 01-04-2022 Miscellaneous Notes Please change her to [...] virtual appointment tomorrow. PDMP reviewed, had 10 Keyser on 01/01. Will write 28 Keyser , must last a full 7 days. [...] advise. Laura Pena documented in this encounter [facility] 01-04-2022 Miscellaneous Notes Called patient to inform her, mailed her the numbers for the other home health agencies per her request Please let the pt know Denice Gr APRN.CNP Thank you for the referral of your patient to [facility]. At this time, we are unable to accommodate your patient s needs in a safe and timely fashion. In order to help your patient receive quality home care, we have included reputable agencies that service this area: [facility] [facility] or [phone]. OR [facility] Phone Jen Please contact these agencies and they will work with your patient to arrange timely services. documented in this encounter [facility] 12-25-2021 Miscellaneous Notes I scanned fibroscan results from [facility] today for you to review. Emma Torres Fibroscan reviewed. F2S2 Bharti - can you check on the Hep C treatment status? Josué Blevins MD documented in this encounter [facility] 12-15-2021 Instructions Blaine Ann MD - 12/15/2021 8:47 AM EDT It was great to see you today! You have urge and stress incontinence. Lets try a bladder relaxant and Kegel exercises. I want you to see Dorothy in 6 weeks to see how things stand. documented in this encounter [facility] 12-15-2021 History of Present illness Narrative Images from the original note were not included. [facility] NEW PATIENT ENCOUNTER HISTORY OF PRESENT ILLNESS: [...] care 05/15/2020 HOSPITAL/ER FOLLOW UP Which facility: [facility] Dates of visit: 05/10-05/13/2020 Preadmission evaluation: [...] of admission 05/01/2021 Date of discharge: Facility: [facility] 05/01/2021 presented to the emergency room [...] dorothy, still needs pelvic exam. Smoking cessation. Baline Ann Medical Decision Making: Problems: Moderate: New [...] by contextual derivation. documented in this encounter [facility] 12-10-2021 Miscellaneous Notes Patient has been identified [...] Fadumo Romero, RN documented in this encounter [facility] 12-10-2021 Miscellaneous Notes 1.Are you diabetic No [...] vaccine.) Jenifer Sherman documented in this encounter [facility] 12-09-2021 Miscellaneous Notes Please see below regarding home care Denice Gr APRN.SEWING MACHINE OPERATOR Thank you for the referral of your patient to [facility]. At this time, we are at capacity and are unable to accept your patient. In order to help your patient receive quality home care, we have included reputable agencies that service this area: [facility] [phone] or [facility] [phone]. Please contact this agency and they will work with your patient to arrange timely services. Thank you, SHERLEY Castorena 12/09/2021 3:03 PM documented in this encounter [facility] 12-09-2021 Instructions Denice Gr APRN.ALYSSA - 12/09/2021 2:51 PM EDT Ice and heat as tolerated Activity as tolerated documented in this encounter [facility] 12-07-2021 History of Present illness Narrative AMBULATORY [...] and assume there are 5 lumbar-type vertebrae. Carriage Dogger: PSCB Transcribe Date/Time: Jun 05 2021 11:26A Dictated by : IGTA MALHOTRA MD This examination was interpreted and the report reviewed and electronically signed by: GITA MALHOTRA MD on Jun 05 2021 11:36AM EST Results-Findings * * *Final Report* * * DATE OF EXAM: Jun 05 2021 10:50AM [facility] 0303 - MRI LUMBAR SPINE WO [...] This information is taken directly from the new order clerk system. TECHNIQUE: Routine lumbosacral spine MR protocol [...] scoliotic curvature convex left visible on the industrial roofer helper. [place] at L4-L5. Mild straightening of usual lumbar [...] impingement of the distal cord within the jvniw-lr-trea. Paraspinal soft tissues: As above. No paraspinal [...] annulus, and facet degenerative change contributes to svug-fn-irzxocho right foraminal narrowing. L4-L5: Disk bulging, loss [...] Impression IMPRESSION: Spondylosis of the cervical spine. Carriage Dogger: FoodilyB Transcribe Date/Time: Nov 12 2021 4:07P Dictated [...] Total Time Spent: 15 minutes Denice Gr APRN.SEWING MACHINE OPERATOR documented in this encounter [facility] 12-07-2021 Miscellaneous Notes Spoke with Mariluz, gave her the number to schedule her fibroscan at [facility], and let her know she can get her labs done at the [facility] for Hep C meds. Bharti Sherman CMA documented in this encounter [facility] 11-27-2021 Nurse Note Pt states readines for discharge. Dr. Blevins at bedside speaking with amrio. documented in this encounter [facility] 11-27-2021 History and physical note HISTORY AND [...] Josué Blevins MD documented in this encounter [facility] 11-23-2021 Miscellaneous Notes Faxed over fibroscan to [facility]. Asked for them to contact patient directly to get scheduled. Sydney Bowens documented in this encounter [facility] 11-23-2021 Instructions Josué Blevins MD - 11/23/2021 [...] If you do not have a responsible driver's education instructor (family member or friend) with you to [...] exam. 2 05/2019 documented in this encounter [facility] 11-23-2021 History of Present illness Narrative CHIEF COMPLAINT: Patient presents with: Chronic Hep C: Labs 11/12/21 This consult was requested by Jaimee Palomares PA-C for an opinion regarding hepatitis C. My final recommendations will be communicated to the requesting health care provider by way of the shared medical record for internal providers or letter via the [employer] for external providers. HPI: Mariluz [...] 8 years, says one of them in [place]. Had blood transfusion few years ago for [...] care 05/15/2020 HOSPITAL/ER FOLLOW UP Which facility: [facility] Dates of visit: 05/10-05/13/2020 Preadmission evaluation: [...] of admission 05/01/2021 Date of discharge: Facility: [facility] 05/01/2021 presented to the emergency room [...] Jaimee Palomares PA-C documented in this encounter [facility] 11-12-2021 Instructions Jaimee Palomares PA-C - 11/12/2021 [...] holding your breath. documented in this encounter [facility] 11-12-2021 History of Present illness Narrative 51 year old female with c/o follow up Was in ER last month: 10/12/2021 presented [facility] emergency room with complaint of chest pain via EMS. Worsening over 4 days, sharp, left-sided, worse with overhead movement and certain arm movements as well as taking deep breath. Physical exam: Vital signs 98.6 F-81-14-150/103-97% RA. Described as well-nourished and developed, no acute distress, chest wall negative for tenderness. Lab: CBC within normal limits except Hgb 15.7, lymph percent 15.9, [place] 14.0, eos 5.3. D-dimer elevated at 0.68. Chemistry profile within normal limits. Troponin 1 within normal limits at 4. Chest x-ray: No acute findings. Chest CTA: No evidence of pulmonary embolus, positive for pulmonary emphysema. EKG: Normal sinus rhythm ventricular rate 78, no ischemic changes. Patient discharged on prednisone 60 mg daily x5 days, naproxen 500 mg p.o. twice daily. Moved to [place] from [facility]. Current concerns: Hips are bothering her. 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 Feels stable overall PHQ-9 09/26/2018 02/13/2019 11/12/2021 [...] care 05/15/2020 HOSPITAL/ER FOLLOW UP Which facility: [facility] Dates of visit: 05/10-05/13/2020 Preadmission evaluation: [...] of admission 05/01/2021 Date of discharge: Facility: [facility] 05/01/2021 presented to the emergency room [...] Zarate. Major depression Obesity PE (pulmonary thromboembolism) ([facility]) PTSD (post-traumatic stress disorder) Snoring Tobacco use [...] with x-rays. 8. Stress incontinence - ICD9: [id number], ICD10: N39.3 - CONSULT TO PHYSICAL THERAPY [...] vaccine - ICD9: V04.89, ICD10: Z23 - Lumexis COVID-19 VACCINE, AGE 12+ YR (PURPLE TOP) 12. Screening for colon cancer - ICD9: V76.51, ICD10: Z12.11 - CONSULT TO GENERAL SURGERY Follow-up 6 months and as needed. Jaimee Palomares PA-C documented in this encounter [facility] 11-06-2021 Miscellaneous Notes Schedulers please assist pt [...] Laisha Ayana Pss documented in this encounter [facility] 11-06-2021 Miscellaneous Notes [facility]ORY 07/23/21 NOV no [...] patient. Laisha Castañeda documented in this encounter [facility] 10-23-2021 Miscellaneous Notes Thanks for the update. Baclofen for 90 days sent to pharmacy (including refills), she will need follow-up prior to next script. Deloris Troy III, MD, [facility] Telephone Medication Refill Request Name/dose: Baclofen [...] advise. Jenifer Sherman documented in this encounter [facility] 10-21-2021 Miscellaneous Notes No Show Documentation Mariluz Garcia no showed for an appointment on 10/21/21 with Denice Gr APRN.SEWING MACHINE OPERATOR at 7:45. She was scheduled for follow [...] 2021 4:31 PM documented in this encounter [facility] 10-12-2021 Miscellaneous Notes Protocol recommends call 911 [...] 11. : Pt denies. Protocols used: CHEST [id number] documented in this encounter [facility] 10-07-2021 Miscellaneous Notes Received and placed on providers desk to sign. We did not get all forms with the first fax. [facility] calling to say they are faxing CMN to PCP office to be completed for order for Adult Diapers/Pads. Laina Orellana RN documented in this encounter [facility] 10-05-2021 Miscellaneous Notes Pt. Previously scheduled 11/10. Will close TE at this time. Please schedule: Telephone on 10/04/21 [facility] BILAT US BREAST LTD LT US BREAST LTD RT Thanks, Faustino Palomares PA-C documented in this encounter [facility] 10-02-2021 Miscellaneous Notes Patient was notified and [...] call to patient.. documented in this encounter [facility] 10-01-2021 Miscellaneous Notes October 01, 2021 PID: [id number] Mariluz Garcia [address] [address] Dear Ms. Garcia, Your recent breast imaging exam on 10/01/2021 showed a possible finding that requires additional imaging studies for a complete evaluation. Most such findings are probably benign (not cancer). If you have a healthcare provider who ordered/prescribed your screening mammogram: Please call [phone] or [phone] to schedule an appointment for your additional [...] and reports are kept on file at [facility] as part of your permanent medical record, and are available for your continuing care. Thank you for allowing us to help in meeting your health care needs. Sincerely, Dr. Loredo Interpreting Radiologist [facility] (Additional imaging) documented in this encounter [facility] 10-01-2021 History of Present illness Narrative Radiology [...] 2021 12:44 PM documented in this encounter [facility] 09-21-2021 Miscellaneous Notes Please advise insurance covers symbicort, similar to Breo The following approved medication requests have been transmitted electronically. Signed Prescriptions Disp Refills budesonide-formoterol (SYMBICORT) 160-4.5 mcg/actuation inhaler 1 Each 5 Sig: Inhale 2 Puffs as instructed twice daily. Authorizing Provider: Jaimee PALOMARES PA-C [facility] calling to state patient's Breo Ellipta is needing a pre-auth. Pharmacy states either symbicort or Dulera is covered by patient's insurance if provider would like to switch. Please advise [facility] at [phone]. Thank you. documented in this encounter [facility] 09-11-2021 Miscellaneous Notes Patient has been identified by name and date of : Yes Pending Prescriptions Disp Refills CHOLECALCIFEROL (VITAMIN D3) 25 MCG (1,000 UNIT) CAPSULE 90 capsule 1 Sig: Take 1 capsule by mouth once daily. NATALIO: No CORY-07/23/21 Labs-01/16/21 NOV-none RX INSTRUCTIONS: Pharmacy initiated this request. No need to notify patient. Stephany Bowser Pss documented in this encounter [facility] 07-17-2021 Miscellaneous Notes Sw spoke with patient in regarding patient needs. Patient reports that she can use a mobile home servicer. Patient reports that she has back pain and is unable to stand for long periods of time. Needs assistance with cooking, cleaning, grooming. Sw briefly discussed [facility]. Patient notes that she had mobile home servicer in the past. The end and services [...] mail her number. Sw will mail patient [facility] application with contact number. Called Pt and let her know that Stephany from [facility] had informed us that she had [...] need for help in the future. Stephany JAVIERautomobile assembly supervisor Care Sal from [facility] called in and reports Pt had been in [facility] 04/30/22-05/02/22. Then she went to the [address] [place] [address] from 05/03/22-07/02/21 for a substance use disorder [...] provider was 01/17/12 documented in this encounter [facility] documented as of this encounter (statuses as of 09/11/2021) [facility]2021 History of Past illness Narrative* Problem Noted Date Resolved Date Encounter for support and coordination of transi tion of care 05/02/2021 07/23/2021 Overview: Hospital discharge summary: Date of admission 05/01/2021 Date of discharge: Facility: [facility] 05/01/2021 presented to the emergency room [...] 05/02/2021 Overview: HOSPITAL/ER FOLLOW UP Which facility: [facility] Dates of visit: 05/10-05/13/2020 Preadmission evaluation: [...] of this encounter (statuses as of 09/21/2021) [facility] History of Past illness Narrative* Problem Noted Date Resolved Date Encounter for support and coordination of transi tion of care 05/02/2021 07/23/2021 Overview: Hospital discharge summary: Date of admission 05/01/2021 Date of discharge: Facility: [facility] 05/01/2021 presented to the emergency room [...] 05/02/2021 Overview: HOSPITAL/ER FOLLOW UP Which facility: [facility] Dates of visit: 05/10-05/13/2020 Preadmission evaluation: [...] of this encounter (statuses as of 09/22/2021) [facility] History of Past illness Narrative* Problem Noted Date Resolved Date Encounter for support and coordination of transi tion of care 05/02/2021 07/23/2021 Overview: Hospital discharge summary: Date of admission 05/01/2021 Date of discharge: Facility: [facility] 05/01/2021 presented to the emergency room [...] 05/02/2021 Overview: HOSPITAL/ER FOLLOW UP Which facility: [facility] Dates of visit: 05/10-05/13/2020 Preadmission evaluation: [...] of this encounter (statuses as of 10/02/2021) [facility] History of Past illness Narrative* Problem Noted Date Resolved Date Encounter for support and coordination of transi tion of care 05/02/2021 07/23/2021 Overview: Hospital discharge summary: Date of admission 05/01/2021 Date of discharge: Facility: [facility] 05/01/2021 presented to the emergency room [...] 05/02/2021 Overview: HOSPITAL/ER FOLLOW UP Which facility: [facility] Dates of visit: 05/10-05/13/2020 Preadmission evaluation: [...] of this encounter (statuses as of 10/02/2021) [facility] History of Past illness Narrative* Problem Noted Date Resolved Date Encounter for support and coordination of transi tion of care 05/02/2021 07/23/2021 Overview: Hospital discharge summary: Date of admission 05/01/2021 Date of discharge: Facility: [facility] 05/01/2021 presented to the emergency room [...] 05/02/2021 Overview: HOSPITAL/ER FOLLOW UP Which facility: [facility] Dates of visit: 05/10-05/13/2020 Preadmission evaluation: [...] of this encounter (statuses as of 10/03/2021) [facility] History of Past illness Narrative* Problem Noted Date Resolved Date Encounter for support and coordination of transi tion of care 05/02/2021 07/23/2021 Overview: Hospital discharge summary: Date of admission 05/01/2021 Date of discharge: Facility: [facility] 05/01/2021 presented to the emergency room [...] 05/02/2021 Overview: HOSPITAL/ER FOLLOW UP Which facility: [facility] Dates of visit: 05/10-05/13/2020 Preadmission evaluation: [...] of this encounter (statuses as of 10/05/2021) [facility] History of Past illness Narrative* Problem Noted Date Resolved Date Encounter for support and coordination of transi tion of care 05/02/2021 07/23/2021 Overview: Hospital discharge summary: Date of admission 05/01/2021 Date of discharge: Facility: [facility] 05/01/2021 presented to the emergency room [...] 05/02/2021 Overview: HOSPITAL/ER FOLLOW UP Which facility: [facility] Dates of visit: 05/10-05/13/2020 Preadmission evaluation: [...] of this encounter (statuses as of 10/08/2021) [facility] History of Past illness Narrative* Problem Noted Date Resolved Date Encounter for support and coordination of transi tion of care 05/02/2021 07/23/2021 Overview: Hospital discharge summary: Date of admission 05/01/2021 Date of discharge: Facility: [facility] 05/01/2021 presented to the emergency room [...] 05/02/2021 Overview: HOSPITAL/ER FOLLOW UP Which facility: [facility] Dates of visit: 05/10-05/13/2020 Preadmission evaluation: [...] of this encounter (statuses as of 10/21/2021) [facility] History of Past illness Narrative* Problem Noted Date Resolved Date Encounter for support and coordination of transi tion of care 05/02/2021 07/23/2021 Overview: Hospital discharge summary: Date of admission 05/01/2021 Date of discharge: Facility: [facility] 05/01/2021 presented to the emergency room [...] 05/02/2021 Overview: HOSPITAL/ER FOLLOW UP Which facility: [facility] Dates of visit: 05/10-05/13/2020 Preadmission evaluation: [...] of this encounter (statuses as of 10/21/2021) [facility] History of Past illness Narrative* Problem Noted Date Resolved Date Encounter for support and coordination of transi tion of care 05/02/2021 07/23/2021 Overview: Hospital discharge summary: Date of admission 05/01/2021 Date of discharge: Facility: [facility] 05/01/2021 presented to the emergency room [...] 05/02/2021 Overview: HOSPITAL/ER FOLLOW UP Which facility: [facility] Dates of visit: 05/10-05/13/2020 Preadmission evaluation: [...] of this encounter (statuses as of 10/23/2021) [facility] History of Past illness Narrative* Problem Noted Date Resolved Date Encounter for support and coordination of transi tion of care 05/02/2021 07/23/2021 Overview: Hospital discharge summary: Date of admission 05/01/2021 Date of discharge: Facility: [facility] 05/01/2021 presented to the emergency room [...] 05/02/2021 Overview: HOSPITAL/ER FOLLOW UP Which facility: [facility] Dates of visit: 05/10-05/13/2020 Preadmission evaluation: [...] of this encounter (statuses as of 11/06/2021) [facility]11-13-2021 History of Past illness Narrative* Problem Noted Date Resolved Date Encounter for support and coordination of transi tion of care 05/02/2021 07/23/2021 Overview: Hospital discharge summary: Date of admission 05/01/2021 Date of discharge: Facility: [facility] 05/01/2021 presented to the emergency room [...] 05/02/2021 Overview: HOSPITAL/ER FOLLOW UP Which facility: [facility] Dates of visit: 05/10-05/13/2020 Preadmission evaluation: [...] of this encounter (statuses as of 11/06/2021) [facility]11-13-2021 History of Past illness Narrative* Problem Noted Date Resolved Date Encounter for support and coordination of transi tion of care 05/02/2021 07/23/2021 Overview: Hospital discharge summary: Date of admission 05/01/2021 Date of discharge: Facility: [facility] 05/01/2021 presented to the emergency room [...] 05/02/2021 Overview: HOSPITAL/ER FOLLOW UP Which facility: [facility] Dates of visit: 05/10-05/13/2020 Preadmission evaluation: [...] of this encounter (statuses as of 11/11/2021) [facility]11-13-2021 History of Past illness Narrative* Problem Noted Date Resolved Date Encounter for support and coordination of transi tion of care 05/02/2021 07/23/2021 Overview: Hospital discharge summary: Date of admission 05/01/2021 Date of discharge: Facility: [facility] 05/01/2021 presented to the emergency room [...] 05/02/2021 Overview: HOSPITAL/ER FOLLOW UP Which facility: [facility] Dates of visit: 05/10-05/13/2020 Preadmission evaluation: [...] of this encounter (statuses as of 11/13/2021) [facility]11-13-2021 History of Past illness Narrative* Problem Noted Date Resolved Date Encounter for support and coordination of transi tion of care 05/02/2021 07/23/2021 Overview: Hospital discharge summary: Date of admission 05/01/2021 Date of discharge: Facility: [facility] 05/01/2021 presented to the emergency room [...] 05/02/2021 Overview: HOSPITAL/ER FOLLOW UP Which facility: [facility] Dates of visit: 05/10-05/13/2020 Preadmission evaluation: [...] of this encounter (statuses as of 11/23/2021) [facility]11-13-2021 History of Past illness Narrative* Problem Noted Date Resolved Date Encounter for support and coordination of transi tion of care 05/02/2021 07/23/2021 Overview: Hospital discharge summary: Date of admission 05/01/2021 Date of discharge: Facility: [facility] 05/01/2021 presented to the emergency room [...] 05/02/2021 Overview: HOSPITAL/ER FOLLOW UP Which facility: [facility] Dates of visit: 05/10-05/13/2020 Preadmission evaluation: [...] of this encounter (statuses as of 11/23/2021) [facility]11-13-2021 History of Past illness Narrative* Problem Noted Date Resolved Date Encounter for support and coordination of transi tion of care 05/02/2021 07/23/2021 Overview: Hospital discharge summary: Date of admission 05/01/2021 Date of discharge: Facility: [facility] 05/01/2021 presented to the emergency room [...] 05/02/2021 Overview: HOSPITAL/ER FOLLOW UP Which facility: [facility] Dates of visit: 05/10-05/13/2020 Preadmission evaluation: [...] of this encounter (statuses as of 11/26/2021) [facility]11-13-2021 History of Past illness Narrative* Problem Noted Date Resolved Date Encounter for support and coordination of transi tion of care 05/02/2021 07/23/2021 Overview: Hospital discharge summary: Date of admission 05/01/2021 Date of discharge: Facility: [facility] 05/01/2021 presented to the emergency room [...] 05/02/2021 Overview: HOSPITAL/ER FOLLOW UP Which facility: [facility] Dates of visit: 05/10-05/13/2020 Preadmission evaluation: [...] of this encounter (statuses as of 11/28/2021) [facility]11-13-2021 History of Past illness Narrative* Problem Noted Date Resolved Date Encounter for support and coordination of transi tion of care 05/02/2021 07/23/2021 Overview: Hospital discharge summary: Date of admission 05/01/2021 Date of discharge: Facility: [facility] 05/01/2021 presented to the emergency room [...] 05/02/2021 Overview: HOSPITAL/ER FOLLOW UP Which facility: [facility] Dates of visit: 05/10-05/13/2020 Preadmission evaluation: [...] of this encounter (statuses as of 12/07/2021) [facility]11-13-2021 History of Past illness Narrative* Problem Noted Date Resolved Date Encounter for support and coordination of transi tion of care 05/02/2021 07/23/2021 Overview: Hospital discharge summary: Date of admission 05/01/2021 Date of discharge: Facility: [facility] 05/01/2021 presented to the emergency room [...] 05/02/2021 Overview: HOSPITAL/ER FOLLOW UP Which facility: [facility] Dates of visit: 05/10-05/13/2020 Preadmission evaluation: [...] of this encounter (statuses as of 12/09/2021) [facility]11-13-2021 History of Past illness Narrative* Problem Noted Date Resolved Date Encounter for support and coordination of transi tion of care 05/02/2021 07/23/2021 Overview: Hospital discharge summary: Date of admission 05/01/2021 Date of discharge: Facility: [facility] 05/01/2021 presented to the emergency room [...] 05/02/2021 Overview: HOSPITAL/ER FOLLOW UP Which facility: [facility] Dates of visit: 05/10-05/13/2020 Preadmission evaluation: [...] of this encounter (statuses as of 12/09/2021) [facility]11-13-2021 History of Past illness Narrative* Problem Noted Date Resolved Date Encounter for support and coordination of transi tion of care 05/02/2021 07/23/2021 Overview: Hospital discharge summary: Date of admission 05/01/2021 Date of discharge: Facility: [facility] 05/01/2021 presented to the emergency room [...] 05/02/2021 Overview: HOSPITAL/ER FOLLOW UP Which facility: [facility] Dates of visit: 05/10-05/13/2020 Preadmission evaluation: [...] of this encounter (statuses as of 12/10/2021) [facility]11-13-2021 History of Past illness Narrative* Problem Noted Date Resolved Date Encounter for support and coordination of transi tion of care 05/02/2021 07/23/2021 Overview: Hospital discharge summary: Date of admission 05/01/2021 Date of discharge: Facility: [facility] 05/01/2021 presented to the emergency room [...] 05/02/2021 Overview: HOSPITAL/ER FOLLOW UP Which facility: [facility] Dates of visit: 05/10-05/13/2020 Preadmission evaluation: [...] of this encounter (statuses as of 12/10/2021) [facility]11-13-2021 History of Past illness Narrative* Problem Noted Date Resolved Date Encounter for support and coordination of transi tion of care 05/02/2021 07/23/2021 Overview: Hospital discharge summary: Date of admission 05/01/2021 Date of discharge: Facility: [facility] 05/01/2021 presented to the emergency room [...] 05/02/2021 Overview: HOSPITAL/ER FOLLOW UP Which facility: [facility] Dates of visit: 05/10-05/13/2020 Preadmission evaluation: [...] of this encounter (statuses as of 12/10/2021) [facility]11-13-2021 History of Past illness Narrative* Problem Noted Date Resolved Date Encounter for support and coordination of transi tion of care 05/02/2021 07/23/2021 Overview: Hospital discharge summary: Date of admission 05/01/2021 Date of discharge: Facility: [facility] 05/01/2021 presented to the emergency room [...] 05/02/2021 Overview: HOSPITAL/ER FOLLOW UP Which facility: [facility] Dates of visit: 05/10-05/13/2020 Preadmission evaluation: [...] of this encounter (statuses as of 12/15/2021) [facility]11-13-2021 History of Past illness Narrative* Problem Noted Date Resolved Date Encounter for support and coordination of transi tion of care 05/02/2021 07/23/2021 Overview: Hospital discharge summary: Date of admission 05/01/2021 Date of discharge: Facility: [facility] 05/01/2021 presented to the emergency room [...] 05/02/2021 Overview: HOSPITAL/ER FOLLOW UP Which facility: [facility] Dates of visit: 05/10-05/13/2020 Preadmission evaluation: [...] of this encounter (statuses as of 01/04/2022) [facility]11-13-2021 History of Past illness Narrative* Problem Noted Date Resolved Date Encounter for support and coordination of transi tion of care 05/02/2021 07/23/2021 Overview: Hospital discharge summary: Date of admission 05/01/2021 Date of discharge: Facility: [facility] 05/01/2021 presented to the emergency room [...] 05/02/2021 Overview: HOSPITAL/ER FOLLOW UP Which facility: [facility] Dates of visit: 05/10-05/13/2020 Preadmission evaluation: [...] of this encounter (statuses as of 01/04/2022) [facility]11-13-2021 History of Past illness Narrative* Problem Noted Date Resolved Date Encounter for support and coordination of transi tion of care 05/02/2021 07/23/2021 Overview: Hospital discharge summary: Date of admission 05/01/2021 Date of discharge: Facility: [facility] 05/01/2021 presented to the emergency room [...] 05/02/2021 Overview: HOSPITAL/ER FOLLOW UP Which facility: [facility] Dates of visit: 05/10-05/13/2020 Preadmission evaluation: [...] of this encounter (statuses as of 01/04/2022) [facility]-13-2021 History of Past illness Narrative* Problem Noted Date Resolved Date Encounter for support and coordination of transi tion of care 05/02/2021 07/23/2021 Overview: Hospital discharge summary: Date of admission 05/01/2021 Date of discharge: Facility: [facility] 05/01/2021 presented to the emergency room [...] 05/02/2021 Overview: HOSPITAL/ER FOLLOW UP Which facility: [facility] Dates of visit: 05/10-05/13/2020 Preadmission evaluation: [...] of this encounter (statuses as of 01/14/2022) [facility]11-13-2021 History of Past illness Narrative* Problem Noted Date Resolved Date Encounter for support and coordination of transi tion of care 05/02/2021 07/23/2021 Overview: Hospital discharge summary: Date of admission 05/01/2021 Date of discharge: Facility: [facility] 05/01/2021 presented to the emergency room [...] 05/02/2021 Overview: HOSPITAL/ER FOLLOW UP Which facility: [facility] Dates of visit: 05/10-05/13/2020 Preadmission evaluation: [...] of this encounter (statuses as of 01/18/2022) [facility]11-13-2021 History of Past illness Narrative* Problem Noted Date Resolved Date Encounter for support and coordination of transi tion of care 05/02/2021 07/23/2021 Overview: Hospital discharge summary: Date of admission 05/01/2021 Date of discharge: Facility: [facility] 05/01/2021 presented to the emergency room [...] 05/02/2021 Overview: HOSPITAL/ER FOLLOW UP Which facility: [facility] Dates of visit: 05/10-05/13/2020 Preadmission evaluation: [...] of this encounter (statuses as of 01/27/2022) [facility]11-13-2021 History of Past illness Narrative* Problem Noted Date Resolved Date Encounter for support and coordination of transi tion of care 05/02/2021 07/23/2021 Overview: Hospital discharge summary: Date of admission 05/01/2021 Date of discharge: Facility: [facility] 05/01/2021 presented to the emergency room [...] 05/02/2021 Overview: HOSPITAL/ER FOLLOW UP Which facility: [facility] Dates of visit: 05/10-05/13/2020 Preadmission evaluation: [...] of this encounter (statuses as of 01/29/2022) [facility]-13-2021 History of Past illness Narrative* Problem Noted Date Resolved Date Encounter for support and coordination of transi tion of care 05/02/2021 07/23/2021 Overview: Hospital discharge summary: Date of admission 05/01/2021 Date of discharge: Facility: [facility] 05/01/2021 presented to the emergency room [...] 05/02/2021 Overview: HOSPITAL/ER FOLLOW UP Which facility: [facility] Dates of visit: 05/10-05/13/2020 Preadmission evaluation: [...] of this encounter (statuses as of 01/29/2022) [facility]-2021 History of Past illness Narrative* Problem Noted Date Resolved Date Encounter for support and coordination of transi tion of care 05/02/2021 07/23/2021 Overview: Hospital discharge summary: Date of admission 05/01/2021 Date of discharge: Facility: [facility] 05/01/2021 presented to the emergency room [...] 05/02/2021 Overview: HOSPITAL/ER FOLLOW UP Which facility: [facility] Dates of visit: 05/10-05/13/2020 Preadmission evaluation: [...] of this encounter (statuses as of 02/05/2022) [facility]-2021 History of Past illness Narrative* Problem Noted Date Resolved Date Encounter for support and coordination of transi tion of care 05/02/2021 07/23/2021 Overview: Hospital discharge summary: Date of admission 05/01/2021 Date of discharge: Facility: [facility] 05/01/2021 presented to the emergency room [...] 05/02/2021 Overview: HOSPITAL/ER FOLLOW UP Which facility: [facility] Dates of visit: 05/10-05/13/2020 Preadmission evaluation: [...] of this encounter (statuses as of 02/11/2022) [facility]2021 History of Past illness Narrative* Problem Noted Date Resolved Date Encounter for support and coordination of transi tion of care 05/02/2021 07/23/2021 Overview: Hospital discharge summary: Date of admission 05/01/2021 Date of discharge: Facility: [facility] 05/01/2021 presented to the emergency room [...] 05/02/2021 Overview: HOSPITAL/ER FOLLOW UP Which facility: [facility] Dates of visit: 05/10-05/13/2020 Preadmission evaluation: [...] of this encounter (statuses as of 02/17/2022) [facility]-2021 History of Past illness Narrative* Problem Noted Date Resolved Date Encounter for support and coordination of transi tion of care 05/02/2021 07/23/2021 Overview: Hospital discharge summary: Date of admission 05/01/2021 Date of discharge: Facility: [facility] 05/01/2021 presented to the emergency room [...] 05/02/2021 Overview: HOSPITAL/ER FOLLOW UP Which facility: [facility] Dates of visit: 05/10-05/13/2020 Preadmission evaluation: [...] of this encounter (statuses as of 02/23/2022) [facility]-2021 History of Past illness Narrative* Problem Noted Date Resolved Date Encounter for support and coordination of transi tion of care 05/02/2021 07/23/2021 Overview: Hospital discharge summary: Date of admission 05/01/2021 Date of discharge: Facility: [facility] 05/01/2021 presented to the emergency room [...] 05/02/2021 Overview: HOSPITAL/ER FOLLOW UP Which facility: [facility] Dates of visit: 05/10-05/13/2020 Preadmission evaluation: [...] of this encounter (statuses as of 02/24/2022) [facility]-2021 History of Past illness Narrative* Problem Noted Date Resolved Date Encounter for support and coordination of transi tion of care 05/02/2021 07/23/2021 Overview: Hospital discharge summary: Date of admission 05/01/2021 Date of discharge: Facility: [facility] 05/01/2021 presented to the emergency room [...] 05/02/2021 Overview: HOSPITAL/ER FOLLOW UP Which facility: [facility] Dates of visit: 05/10-05/13/2020 Preadmission evaluation: [...] of this encounter (statuses as of 02/25/2022) [facility]-2021 History of Past illness Narrative* Problem Noted Date Resolved Date Encounter for support and coordination of transi tion of care 05/02/2021 07/23/2021 Overview: Hospital discharge summary: Date of admission 05/01/2021 Date of discharge: Facility: [facility] 05/01/2021 presented to the emergency room [...] 05/02/2021 Overview: HOSPITAL/ER FOLLOW UP Which facility: [facility] Dates of visit: 05/10-05/13/2020 Preadmission evaluation: [...] of this encounter (statuses as of 02/26/2022) [facility]-2021 History of Past illness Narrative* Problem Noted Date Resolved Date Encounter for support and coordination of transi tion of care 05/02/2021 07/23/2021 Overview: Hospital discharge summary: Date of admission 05/01/2021 Date of discharge: Facility: [facility] 05/01/2021 presented to the emergency room [...] 05/02/2021 Overview: HOSPITAL/ER FOLLOW UP Which facility: [facility] Dates of visit: 05/10-05/13/2020 Preadmission evaluation: [...] of this encounter (statuses as of 02/27/2022) [facility]2021 History of Past illness Narrative* Problem Noted Date Resolved Date Encounter for support and coordination of transi tion of care 05/02/2021 07/23/2021 Overview: Hospital discharge summary: Date of admission 05/01/2021 Date of discharge: Facility: [facility] 05/01/2021 presented to the emergency room [...] 05/02/2021 Overview: HOSPITAL/ER FOLLOW UP Which facility: [facility] Dates of visit: 05/10-05/13/2020 Preadmission evaluation: [...] of this encounter (statuses as of 03/02/2022) [facility]2021 History of Past illness Narrative* Problem Noted Date Resolved Date Encounter for support and coordination of transi tion of care 05/02/2021 07/23/2021 Overview: Hospital discharge summary: Date of admission 05/01/2021 Date of discharge: Facility: [facility] 05/01/2021 presented to the emergency room [...] 05/02/2021 Overview: HOSPITAL/ER FOLLOW UP Which facility: [facility] Dates of visit: 05/10-05/13/2020 Preadmission evaluation: [...] of this encounter (statuses as of 03/11/2022) [facility] History of Past illness Narrative* Problem Noted Date Resolved Date Encounter for support and coordination of transi tion of care 05/02/2021 07/23/2021 Overview: Hospital discharge summary: Date of admission 05/01/2021 Date of discharge: Facility: [facility] 05/01/2021 presented to the emergency room [...] 05/02/2021 Overview: HOSPITAL/ER FOLLOW UP Which facility: [facility] Dates of visit: 05/10-05/13/2020 Preadmission evaluation: [...] of this encounter (statuses as of 03/12/2022) [facility] History of Past illness Narrative* Problem Noted Date Resolved Date Encounter for support and coordination of transi tion of care 05/02/2021 07/23/2021 Overview: Hospital discharge summary: Date of admission 05/01/2021 Date of discharge: Facility: [facility] 05/01/2021 presented to the emergency room [...] 05/02/2021 Overview: HOSPITAL/ER FOLLOW UP Which facility: [facility] Dates of visit: 05/10-05/13/2020 Preadmission evaluation: [...] of this encounter (statuses as of 03/16/2022) [facility]2021 History of Past illness Narrative* Problem Noted Date Resolved Date Encounter for support and coordination of transi tion of care 05/02/2021 07/23/2021 Overview: Hospital discharge summary: Date of admission 05/01/2021 Date of discharge: Facility: [facility] 05/01/2021 presented to the emergency room [...] 05/02/2021 Overview: HOSPITAL/ER FOLLOW UP Which facility: [facility] Dates of visit: 05/10-05/13/2020 Preadmission evaluation: [...] of this encounter (statuses as of 03/17/2022) [facility]2021 History of Past illness Narrative* Problem Noted Date Resolved Date Encounter for support and coordination of transi tion of care 05/02/2021 07/23/2021 Overview: Hospital discharge summary: Date of admission 05/01/2021 Date of discharge: Facility: [facility] 05/01/2021 presented to the emergency room [...] 05/02/2021 Overview: HOSPITAL/ER FOLLOW UP Which facility: [facility] Dates of visit: 05/10-05/13/2020 Preadmission evaluation: [...] of this encounter (statuses as of 03/25/2022) [facility]20[facility] History of Past illness Narrative* Problem Noted Date Resolved Date Encounter for support and coordination of transi tion of care 05/02/2021 07/23/2021 Overview: Hospital discharge summary: Date of admission 05/01/2021 Date of discharge: Facility: [facility] 05/01/2021 presented to the emergency room [...] 05/02/2021 Overview: HOSPITAL/ER FOLLOW UP Which facility: [facility] Dates of visit: 05/10-05/13/2020 Preadmission evaluation: [...] of this encounter (statuses as of 03/26/2022) [facility] History of Past illness Narrative* Problem Noted Date Resolved Date Encounter for support and coordination of transi tion of care 05/02/2021 07/23/2021 Overview: Hospital discharge summary: Date of admission 05/01/2021 Date of discharge: Facility: [facility] 05/01/2021 presented to the emergency room [...] 05/02/2021 Overview: HOSPITAL/ER FOLLOW UP Which facility: [facility] Dates of visit: 05/10-05/13/2020 Preadmission evaluation: [...] of this encounter (statuses as of 04/01/2022) [facility] History of Past illness Narrative* Problem Noted Date Resolved Date Encounter for support and coordination of transi tion of care 05/02/2021 07/23/2021 Overview: Hospital discharge summary: Date of admission 05/01/2021 Date of discharge: Facility: [facility] 05/01/2021 presented to the emergency room [...] 05/02/2021 Overview: HOSPITAL/ER FOLLOW UP Which facility: [facility] Dates of visit: 05/10-05/13/2020 Preadmission evaluation: [...] of this encounter (statuses as of 04/12/2022) [facility] History of Past illness Narrative* Problem Noted Date Resolved Date Encounter for support and coordination of transi tion of care 05/02/2021 07/23/2021 Overview: Hospital discharge summary: Date of admission 05/01/2021 Date of discharge: Facility: [facility] 05/01/2021 presented to the emergency room [...] 05/02/2021 Overview: HOSPITAL/ER FOLLOW UP Which facility: [facility] Dates of visit: 05/10-05/13/2020 Preadmission evaluation: [...] of this encounter (statuses as of 04/19/2022) [facility] History of Past illness Narrative* Problem Noted Date Resolved Date Encounter for support and coordination of transi tion of care 05/02/2021 07/23/2021 Overview: Hospital discharge summary: Date of admission 05/01/2021 Date of discharge: Facility: [facility] 05/01/2021 presented to the emergency room [...] 05/02/2021 Overview: HOSPITAL/ER FOLLOW UP Which facility: [facility] Dates of visit: 05/10-05/13/2020 Preadmission evaluation: [...] of this encounter (statuses as of 04/23/2022) [facility] History of Past illness Narrative* Problem Noted Date Resolved Date Encounter for support and coordination of transi tion of care 05/02/2021 07/23/2021 Overview: Hospital discharge summary: Date of admission 05/01/2021 Date of discharge: Facility: [facility] 05/01/2021 presented to the emergency room [...] 05/02/2021 Overview: HOSPITAL/ER FOLLOW UP Which facility: [facility] Dates of visit: 05/10-05/13/2020 Preadmission evaluation: [...] of this encounter (statuses as of 05/07/2022) [facility] History of Past illness Narrative* Problem Noted Date Resolved Date Encounter for support and coordination of transi tion of care 05/02/2021 07/23/2021 Overview: Hospital discharge summary: Date of admission 05/01/2021 Date of discharge: Facility: [facility] 05/01/2021 presented to the emergency room [...] 05/02/2021 Overview: HOSPITAL/ER FOLLOW UP Which facility: [facility] Dates of visit: 05/10-05/13/2020 Preadmission evaluation: [...] of this encounter (statuses as of 05/07/2022) [facility]11-13-2021 History of Past illness Narrative* Problem Noted Date Resolved Date Encounter for support and coordination of transi tion of care 05/02/2021 07/23/2021 Overview: Hospital discharge summary: Date of admission 05/01/2021 Date of discharge: Facility: [facility] 05/01/2021 presented to the emergency room [...] 05/02/2021 Overview: HOSPITAL/ER FOLLOW UP Which facility: [facility] Dates of visit: 05/10-05/13/2020 Preadmission evaluation: [...] of this encounter (statuses as of 05/11/2022) [facility]11-13-2021 History of Past illness Narrative* Problem Noted Date Resolved Date Encounter for support and coordination of transi tion of care 05/02/2021 07/23/2021 Overview: Hospital discharge summary: Date of admission 05/01/2021 Date of discharge: Facility: [facility] 05/01/2021 presented to the emergency room [...] 05/02/2021 Overview: HOSPITAL/ER FOLLOW UP Which facility: [facility] Dates of visit: 05/10-05/13/2020 Preadmission evaluation: [...] of this encounter (statuses as of 05/14/2022) [facility]11-13-2021 History of Past illness Narrative* Problem Noted Date Resolved Date Encounter for support and coordination of transi tion of care 05/02/2021 07/23/2021 Overview: Hospital discharge summary: Date of admission 05/01/2021 Date of discharge: Facility: [facility] 05/01/2021 presented to the emergency room [...] 05/02/2021 Overview: HOSPITAL/ER FOLLOW UP Which facility: [facility] Dates of visit: 05/10-05/13/2020 Preadmission evaluation: [...] of this encounter (statuses as of 05/20/2022) [facility]11-13-2021 History of Past illness Narrative* Problem Noted Date Resolved Date Encounter for support and coordination of transi tion of care 05/02/2021 07/23/2021 Overview: Hospital discharge summary: Date of admission 05/01/2021 Date of discharge: Facility: [facility] 05/01/2021 presented to the emergency room [...] 05/02/2021 Overview: HOSPITAL/ER FOLLOW UP Which facility: [facility] Dates of visit: 05/10-05/13/2020 Preadmission evaluation: [...] of this encounter (statuses as of 05/21/2022) [facility]11-13-2021 History of Past illness Narrative* Problem Noted Date Resolved Date Encounter for support and coordination of transi tion of care 05/02/2021 07/23/2021 Overview: Hospital discharge summary: Date of admission 05/01/2021 Date of discharge: Facility: [facility] 05/01/2021 presented to the emergency room [...] 05/02/2021 Overview: HOSPITAL/ER FOLLOW UP Which facility: [facility] Dates of visit: 05/10-05/13/2020 Preadmission evaluation: [...] of this encounter (statuses as of 05/25/2022) [facility]11-13-2021 History of Past illness Narrative* Problem Noted Date Resolved Date Encounter for support and coordination of transi tion of care 05/02/2021 07/23/2021 Overview: Hospital discharge summary: Date of admission 05/01/2021 Date of discharge: Facility: [facility] 05/01/2021 presented to the emergency room [...] 05/02/2021 Overview: HOSPITAL/ER FOLLOW UP Which facility: [facility] Dates of visit: 05/10-05/13/2020 Preadmission evaluation: [...] of this encounter (statuses as of 05/27/2022) [facility]11-13-2021 History of Past illness Narrative* Problem Noted Date Resolved Date Encounter for support and coordination of transi tion of care 05/02/2021 07/23/2021 Overview: Hospital discharge summary: Date of admission 05/01/2021 Date of discharge: Facility: [facility] 05/01/2021 presented to the emergency room [...] 05/02/2021 Overview: HOSPITAL/ER FOLLOW UP Which facility: [facility] Dates of visit: 05/10-05/13/2020 Preadmission evaluation: [...] of this encounter (statuses as of 05/31/2022) [facility]11-13-2021 History of Past illness Narrative* Problem Noted Date Resolved Date Encounter for support and coordination of transi tion of care 05/02/2021 07/23/2021 Overview: Hospital discharge summary: Date of admission 05/01/2021 Date of discharge: Facility: [facility] 05/01/2021 presented to the emergency room [...] 05/02/2021 Overview: HOSPITAL/ER FOLLOW UP Which facility: [facility] Dates of visit: 05/10-05/13/2020 Preadmission evaluation: [...] of this encounter (statuses as of 06/03/2022) [facility]11-13-2021 History of Past illness Narrative* Problem Noted Date Resolved Date Encounter for support and coordination of transi tion of care 05/02/2021 07/23/2021 Overview: Hospital discharge summary: Date of admission 05/01/2021 Date of discharge: Facility: [facility] 05/01/2021 presented to the emergency room [...] 05/02/2021 Overview: HOSPITAL/ER FOLLOW UP Which facility: [facility] Dates of visit: 05/10-05/13/2020 Preadmission evaluation: [...] of this encounter (statuses as of 06/03/2022) [facility]11-13-2021 History of Past illness Narrative* Problem Noted Date Resolved Date Encounter for support and coordination of transi on of care 05/02/2021 07/23/2021 Overview: Hospital discharge summary: Date of admission 05/01/2021 Date of discharge: Facility: [facility] 05/01/2021 presented to the emergency room [...] 05/02/2021 Overview: HOSPITAL/ER FOLLOW UP Which facility: [facility] Dates of visit: 05/10-05/13/2020 Preadmission evaluation: [...] of this encounter (statuses as of 06/13/2022) [facility]11-13-2021 History of Past illness Narrative* Problem Noted Date Resolved Date Encounter for support and coordination of transi tion of care 05/02/2021 07/23/2021 Overview: Hospital discharge summary: Date of admission 05/01/2021 Date of discharge: Facility: [facility] 05/01/2021 presented to the emergency room with acute alcohol intoxication, initial alcohol level 7-8. Acknowledges over the last 5 months drinking 15 packs a day at 8% alcohol (marcin smaaniego). Vital signs 96.6 [id number]%. Appearance was no [...] 05/02/2021 Overview: HOSPITAL/ER FOLLOW UP Which facility: [facility] Dates of visit: 05/10-05/13/2020 Preadmission evaluation: [...] of this encounter (statuses as of 06/13/2022) [facility]11-13-2021 History of Past illness Narrative* Problem Noted Date Resolved Date Encounter for support and coordination of transi tion of care 05/02/2021 07/23/2021 Overview: Hospital discharge summary: Date of admission 05/01/2021 Date of discharge: Facility: [facility] 05/01/2021 presented to the emergency room [...] 05/02/2021 Overview: HOSPITAL/ER FOLLOW UP Which facility: [facility] Dates of visit: 05/10-05/13/2020 Preadmission evaluation: [...] of this encounter (statuses as of 06/22/2022) [facility]11-13-2021 History of Past illness Narrative* Problem Noted Date Resolved Date Encounter for support and coordination of transi tion of care 05/02/2021 07/23/2021 Overview: Hospital discharge summary: Date of admission 05/01/2021 Date of discharge: Facility: [facility] 05/01/2021 presented to the emergency room [...] 05/02/2021 Overview: HOSPITAL/ER FOLLOW UP Which facility: [facility] Dates of visit: 05/10-05/13/2020 Preadmission evaluation: [...] of this encounter (statuses as of 06/23/2022) [facility]11-13-2021 History of Past illness Narrative* Problem Noted Date Resolved Date Encounter for support and coordination of transi tion of care 05/02/2021 07/23/2021 Overview: Hospital discharge summary: Date of admission 05/01/2021 Date of discharge: Facility: [facility] 05/01/2021 presented to the emergency room [...] 05/02/2021 Overview: HOSPITAL/ER FOLLOW UP Which facility: [facility] Dates of visit: 05/10-05/13/2020 Preadmission evaluation: [...] of this encounter (statuses as of 06/23/2022) [facility]11-13-2021 History of Past illness Narrative* Problem Noted Date Resolved Date Encounter for support and coordination of transi tion of care 05/02/2021 07/23/2021 Overview: Hospital discharge summary: Date of admission 05/01/2021 Date of discharge: Facility: [facility] 05/01/2021 presented to the emergency room [...] 05/02/2021 Overview: HOSPITAL/ER FOLLOW UP Which facility: [facility] Dates of visit: 05/10-05/13/2020 Preadmission evaluation: [...] of this encounter (statuses as of 06/23/2022) [facility]11-13-2021 History of Past illness Narrative* Problem Noted Date Resolved Date Encounter for support and coordination of transi tion of care 05/02/2021 07/23/2021 Overview: Hospital discharge summary: Date of admission 05/01/2021 Date of discharge: Facility: [facility] 05/01/2021 presented to the emergency room [...] 05/02/2021 Overview: HOSPITAL/ER FOLLOW UP Which facility: [facility] Dates of visit: 05/10-05/13/2020 Preadmission evaluation: [...] of this encounter (statuses as of 06/25/2022) [facility]11-13-2021 History of Past illness Narrative* Problem Noted Date Resolved Date Encounter for support and coordination of transi tion of care 05/02/2021 07/23/2021 Overview: Hospital discharge summary: Date of admission 05/01/2021 Date of discharge: Facility: [facility] 05/01/2021 presented to the emergency room [...] 05/02/2021 Overview: HOSPITAL/ER FOLLOW UP Which facility: [facility] Dates of visit: 05/10-05/13/2020 Preadmission evaluation: [...] of this encounter (statuses as of 06/25/2022) [facility]11-13-2021 History of Past illness Narrative* Problem Noted Date Resolved Date Encounter for support and coordination of transi tion of care 05/02/2021 07/23/2021 Overview: Hospital discharge summary: Date of admission 05/01/2021 Date of discharge: Facility: [facility] 05/01/2021 presented to the emergency room [...] 05/02/2021 Overview: HOSPITAL/ER FOLLOW UP Which facility: [facility] Dates of visit: 05/10-05/13/2020 Preadmission evaluation: [...] of this encounter (statuses as of 06/28/2022) [facility]11-13-2021 History of Past illness Narrative* Problem Noted Date Resolved Date Encounter for support and coordination of transi tion of care 05/02/2021 07/23/2021 Overview: Hospital discharge summary: Date of admission 05/01/2021 Date of discharge: Facility: [facility] 05/01/2021 presented to the emergency room [...] 05/02/2021 Overview: HOSPITAL/ER FOLLOW UP Which facility: [facility] Dates of visit: 05/10-05/13/2020 Preadmission evaluation: [...] of this encounter (statuses as of 07/14/2022) [facility]11-13-2021 History of Past illness Narrative* Problem Noted Date Resolved Date Encounter for support and coordination of transi tion of care 05/02/2021 07/23/2021 Overview: Hospital discharge summary: Date of admission 05/01/2021 Date of discharge: Facility: [facility] 05/01/2021 presented to the emergency room [...] 05/02/2021 Overview: HOSPITAL/ER FOLLOW UP Which facility: [facility] Dates of visit: 05/10-05/13/2020 Preadmission evaluation: [...] of this encounter (statuses as of 07/16/2022) [facility]11-13-2021 History of Past illness Narrative* Problem Noted Date Resolved Date Encounter for support and coordination of transi tion of care 05/02/2021 07/23/2021 Overview: Hospital discharge summary: Date of admission 05/01/2021 Date of discharge: Facility: [facility] 05/01/2021 presented to the emergency room [...] 05/02/2021 Overview: HOSPITAL/ER FOLLOW UP Which facility: [facility] Dates of visit: 05/10-05/13/2020 Preadmission evaluation: [...] of this encounter (statuses as of 07/22/2022) [facility]-2021 History of Past illness Narrative* Problem Noted Date Resolved Date Encounter for support and coordination of transi tion of care 05/02/2021 07/23/2021 Overview: Hospital discharge summary: Date of admission 05/01/2021 Date of discharge: Facility: [facility] 05/01/2021 presented to the emergency room [...] 05/02/2021 Overview: HOSPITAL/ER FOLLOW UP Which facility: [facility] Dates of visit: 05/10-05/13/2020 Preadmission evaluation: [...] of this encounter (statuses as of 08/06/2022) [facility]-2021 History of Past illness Narrative* Problem Noted Date Resolved Date Encounter for support and coordination of transi tion of care 05/02/2021 07/23/2021 Overview: Hospital discharge summary: Date of admission 05/01/2021 Date of discharge: Facility: [facility] 05/01/2021 presented to the emergency room [...] 05/02/2021 Overview: HOSPITAL/ER FOLLOW UP Which facility: [facility] Dates of visit: 05/10-05/13/2020 Preadmission evaluation: [...] of this encounter (statuses as of 08/13/2022) [facility]-13-2021 History of Past illness Narrative* Problem Noted Date Resolved Date Encounter for support and coordination of transi tion of care 05/02/2021 07/23/2021 Overview: Hospital discharge summary: Date of admission 05/01/2021 Date of discharge: Facility: [facility] 05/01/2021 presented to the emergency room [...] 05/02/2021 Overview: HOSPITAL/ER FOLLOW UP Which facility: [facility] Dates of visit: 05/10-05/13/2020 Preadmission evaluation: [...] of this encounter (statuses as of 08/16/2022) [facility]-13-2021 History of Past illness Narrative* Problem Noted Date Resolved Date Encounter for support and coordination of transi tion of care 05/02/2021 07/23/2021 Overview: Hospital discharge summary: Date of admission 05/01/2021 Date of discharge: Facility: [facility] 05/01/2021 presented to the emergency room [...] 05/02/2021 Overview: HOSPITAL/ER FOLLOW UP Which facility: [facility] Dates of visit: 05/10-05/13/2020 Preadmission evaluation: [...] of this encounter (statuses as of 08/17/2022) [facility]-13-2021 History of Past illness Narrative* Problem Noted Date Resolved Date Encounter for support and coordination of transi tion of care 05/02/2021 07/23/2021 Overview: Hospital discharge summary: Date of admission 05/01/2021 Date of discharge: Facility: [facility] 05/01/2021 presented to the emergency room [...] 05/02/2021 Overview: HOSPITAL/ER FOLLOW UP Which facility: [facility] Dates of visit: 05/10-05/13/2020 Preadmission evaluation: [...] of this encounter (statuses as of 08/18/2022) [facility]2021 History of Past illness Narrative* Problem Noted Date Resolved Date Encounter for support and coordination of transi tion of care 05/02/2021 07/23/2021 Overview: Hospital discharge summary: Date of admission 05/01/2021 Date of discharge: Facility: [facility] 05/01/2021 presented to the emergency room [...] 05/02/2021 Overview: HOSPITAL/ER FOLLOW UP Which facility: [facility] Dates of visit: 05/10-05/13/2020 Preadmission evaluation: [...] of this encounter (statuses as of 08/26/2022) [facility]-2021 History of Past illness Narrative* Problem Noted Date Resolved Date Encounter for support and coordination of transi tion of care 05/02/2021 07/23/2021 Overview: Hospital discharge summary: Date of admission 05/01/2021 Date of discharge: Facility: [facility] 05/01/2021 presented to the emergency room [...] 05/02/2021 Overview: HOSPITAL/ER FOLLOW UP Which facility: [facility] Dates of visit: 05/10-05/13/2020 Preadmission evaluation: [...] of this encounter (statuses as of 08/27/2022) [facility]-2021 History of Past illness Narrative* Problem Noted Date Resolved Date Encounter for support and coordination of transi tion of care 05/02/2021 07/23/2021 Overview: Hospital discharge summary: Date of admission 05/01/2021 Date of discharge: Facility: [facility] 05/01/2021 presented to the emergency room [...] 05/02/2021 Overview: HOSPITAL/ER FOLLOW UP Which facility: [facility] Dates of visit: 05/10-05/13/2020 Preadmission evaluation: [...] of this encounter (statuses as of 09/01/2022) [facility]2021 History of Past illness Narrative* Problem Noted Date Resolved Date Encounter for support and coordination of transi tion of care 05/02/2021 07/23/2021 Overview: Hospital discharge summary: Date of admission 05/01/2021 Date of discharge: Facility: [facility] 05/01/2021 presented to the emergency room [...] 05/02/2021 Overview: HOSPITAL/ER FOLLOW UP Which facility: [facility] Dates of visit: 05/10-05/13/2020 Preadmission evaluation: [...] of this encounter (statuses as of 09/16/2022) [facility]-2021 History of Past illness Narrative* Problem Noted Date Resolved Date Encounter for support and coordination of transi tion of care 05/02/2021 07/23/2021 Overview: Hospital discharge summary: Date of admission 05/01/2021 Date of discharge: Facility: [facility] 05/01/2021 presented to the emergency room [...] 05/02/2021 Overview: HOSPITAL/ER FOLLOW UP Which facility: [facility] Dates of visit: 05/10-05/13/2020 Preadmission evaluation: [...] of this encounter (statuses as of 10/09/2022) [facility]2021 History of Past illness Narrative* Problem Noted Date Resolved Date Encounter for support and coordination of transi tion of care 05/02/2021 07/23/2021 Overview: Hospital discharge summary: Date of admission 05/01/2021 Date of discharge: Facility: [facility] 05/01/2021 presented to the emergency room [...] 05/02/2021 Overview: HOSPITAL/ER FOLLOW UP Which facility: [facility] Dates of visit: 05/10-05/13/2020 Preadmission evaluation: [...] of this encounter (statuses as of 10/14/2022) [facility] History of Past illness Narrative* Problem Noted Date Resolved Date Encounter for support and coordination of transi tion of care 05/02/2021 07/23/2021 Overview: Hospital discharge summary: Date of admission 05/01/2021 Date of discharge: Facility: [facility] 05/01/2021 presented to the emergency room [...] 05/02/2021 Overview: HOSPITAL/ER FOLLOW UP Which facility: [facility] Dates of visit: 05/10-05/13/2020 Preadmission evaluation: [...] of this encounter (statuses as of 10/21/2022) [facility]20[facility] History of Past illness Narrative* Problem Noted Date Resolved Date Encounter for support and coordination of transi tion of care 05/02/2021 07/23/2021 Overview: Hospital discharge summary: Date of admission 05/01/2021 Date of discharge: Facility: [facility] 05/01/2021 presented to the emergency room [...] 05/02/2021 Overview: HOSPITAL/ER FOLLOW UP Which facility: [facility] Dates of visit: 05/10-05/13/2020 Preadmission evaluation: [...] of this encounter (statuses as of 10/27/2022) [facility]2021 History of Past illness Narrative* Problem Noted Date Resolved Date Encounter for support and coordination of transi tion of care 05/02/2021 07/23/2021 Overview: Hospital discharge summary: Date of admission 05/01/2021 Date of discharge: Facility: [facility] 05/01/2021 presented to the emergency room [...] 05/02/2021 Overview: HOSPITAL/ER FOLLOW UP Which facility: [facility] Dates of visit: 05/10-05/13/2020 Preadmission evaluation: [...] of this encounter (statuses as of 11/22/2022) [facility]2021 History of Past illness Narrative* Problem Noted Date Resolved Date Encounter for support and coordination of transi tion of care 05/02/2021 07/23/2021 Overview: Hospital discharge summary: Date of admission 05/01/2021 Date of discharge: Facility: [facility] 05/01/2021 presented to the emergency room [...] 05/02/2021 Overview: HOSPITAL/ER FOLLOW UP Which facility: [facility] Dates of visit: 05/10-05/13/2020 Preadmission evaluation: [...] of this encounter (statuses as of 11/23/2022) [facility]20[facility] History of Past illness Narrative* Problem Noted Date Resolved Date Encounter for support and coordination of transi tion of care 05/02/2021 07/23/2021 Overview: Hospital discharge summary: Date of admission 05/01/2021 Date of discharge: Facility: [facility] 05/01/2021 presented to the emergency room [...] 05/02/2021 Overview: HOSPITAL/ER FOLLOW UP Which facility: [facility] Dates of visit: 05/10-05/13/2020 Preadmission evaluation: [...] of this encounter (statuses as of 12/10/2022) [facility] History of Past illness Narrative* Problem Noted Date Resolved Date Encounter for support and coordination of transi tion of care 05/02/2021 07/23/2021 Overview: Hospital discharge summary: Date of admission 05/01/2021 Date of discharge: Facility: [facility] 05/01/2021 presented to the emergency room [...] 05/02/2021 Overview: HOSPITAL/ER FOLLOW UP Which facility: [facility] Dates of visit: 05/10-05/13/2020 Preadmission evaluation: [...] of this encounter (statuses as of 12/10/2022) [facility] History of Past illness Narrative* Problem Noted Date Resolved Date Encounter for support and coordination of transi tion of care 05/02/2021 07/23/2021 Overview: Hospital discharge summary: Date of admission 05/01/2021 Date of discharge: Facility: [facility] 05/01/2021 presented to the emergency room [...] 05/02/2021 Overview: HOSPITAL/ER FOLLOW UP Which facility: [facility] Dates of visit: 05/10-05/13/2020 Preadmission evaluation: [...] of this encounter (statuses as of 12/10/2022) [facility] History of Past illness Narrative* Problem Noted Date Resolved Date Encounter for support and coordination of transi tion of care 05/02/2021 07/23/2021 Overview: Hospital discharge summary: Date of admission 05/01/2021 Date of discharge: Facility: [facility] 05/01/2021 presented to the emergency room [...] 05/02/2021 Overview: HOSPITAL/ER FOLLOW UP Which facility: [facility] Dates of visit: 05/10-05/13/2020 Preadmission evaluation: [...] of this encounter (statuses as of 12/16/2022) [facility] History of Past illness Narrative* Problem Noted Date Resolved Date Encounter for support and coordination of transi tion of care 05/02/2021 07/23/2021 Overview: Hospital discharge summary: Date of admission 05/01/2021 Date of discharge: Facility: [facility] 05/01/2021 presented to the emergency room [...] 05/02/2021 Overview: HOSPITAL/ER FOLLOW UP Which facility: [facility] Dates of visit: 05/10-05/13/2020 Preadmission evaluation: [...] of this encounter (statuses as of 12/16/2022) [facility] History of Past illness Narrative* Problem Noted Date Resolved Date Encounter for support and coordination of transi on of care 05/02/2021 07/23/2021 Overview: Hospital discharge summary: Date of admission 05/01/2021 Date of discharge: Facility: [facility] 05/01/2021 presented to the emergency room [...] 05/02/2021 Overview: HOSPITAL/ER FOLLOW UP Which facility: [facility] Dates of visit: 05/10-05/13/2020 Preadmission evaluation: [...] of this encounter (statuses as of 12/23/2022) [facility] History of Past illness Narrative* Problem Noted Date Resolved Date Encounter for support and coordination of transi tion of care 05/02/2021 07/23/2021 Overview: Hospital discharge summary: Date of admission 05/01/2021 Date of discharge: Facility: [facility] 05/01/2021 presented to the emergency room [...] 05/02/2021 Overview: HOSPITAL/ER FOLLOW UP Which facility: [facility] Dates of visit: 05/10-05/13/2020 Preadmission evaluation: [...] of this encounter (statuses as of 12/24/2022) [facility]11-13-2021 History of Past illness Narrative* Problem Noted Date Diagnosed Date Resolved Date Encounter for support and co ordination of transition of care 05/02/2021 07/23/2021 Overview: Hospital discharge summary: Date of admission 05/01/2021 Date of discharge: Facility: [facility] 05/01/2021 presented to the emergency room [...] 05/02/2021 Overview: HOSPITAL/ER FOLLOW UP Which facility: [facility] Dates of visit: 05/10-05/13/2020 Preadmission evaluation: [...] of this encounter (statuses as of 01/05/2023) [facility]11-13-2021 History of Past illness Narrative* Problem Noted Date Diagnosed Date Resolved Date Encounter for support and co ordination of transition of care 05/02/2021 07/23/2021 Overview: Hospital discharge summary: Date of admission 05/01/2021 Date of discharge: Facility: [facility] 05/01/2021 presented to the emergency room [...] 05/02/2021 Overview: HOSPITAL/ER FOLLOW UP Which facility: [facility] Dates of visit: 05/10-05/13/2020 Preadmission evaluation: [...] reflux disease Pulmonary embolus Consultants: Surgery: Dr. aGye Gordon testing done: ----- -Labwork: See above [...] of this encounter (statuses as of 01/05/2023) [facility]11-13-2021 History of Past illness Narrative* Problem Noted Date Diagnosed Date Resolved Date Encounter for support and co ordination of transition of care 05/02/2021 07/23/2021 Overview: Hospital discharge summary: Date of admission 05/01/2021 Date of discharge: Facility: [facility] 05/01/2021 presented to the emergency room [...] 05/02/2021 Overview: HOSPITAL/ER FOLLOW UP Which facility: [facility] Dates of visit: 05/10-05/13/2020 Preadmission evaluation: [...] of this encounter (statuses as of 01/07/2023) [facility]11-13-2021 History of Past illness Narrative* Problem Noted Date Diagnosed Date Resolved Date Encounter for support and co ordination of transition of care 05/02/2021 07/23/2021 Overview: Hospital discharge summary: Date of admission 05/01/2021 Date of discharge: Facility: [facility] 05/01/2021 presented to the emergency room [...] 05/02/2021 Overview: HOSPITAL/ER FOLLOW UP Which facility: [facility] Dates of visit: 05/10-05/13/2020 Preadmission evaluation: [...] of this encounter (statuses as of 01/14/2023) [facility]11-13-2021 History of Past illness Narrative* Problem Noted Date Diagnosed Date Resolved Date Encounter for support and co ordination of transition of care 05/02/2021 07/23/2021 Overview: Hospital discharge summary: Date of admission 05/01/2021 Date of discharge: Facility: [facility] 05/01/2021 presented to the emergency room [...] 05/02/2021 Overview: HOSPITAL/ER FOLLOW UP Which facility: [facility] Dates of visit: 05/10-05/13/2020 Preadmission evaluation: [...] Hyperlipidemia Chronic tobacco use Chronic alcohol abuse SAAN Hypothyroidism COPD with emphysema Chronic back pain [...] of this encounter (statuses as of 01/29/2023) [facility]11-13-2021 History of Past illness Narrative* Problem Noted Date Diagnosed Date Resolved Date Encounter for support and co ordination of transition of care 05/02/2021 07/23/2021 Overview: Hospital discharge summary: Date of admission 05/01/2021 Date of discharge: Facility: [facility] 05/01/2021 presented to the emergency room [...] 05/02/2021 Overview: HOSPITAL/ER FOLLOW UP Which facility: [facility] Dates of visit: 05/10-05/13/2020 Preadmission evaluation: [...] of this encounter (statuses as of 01/31/2023) [facility]-13-2021 History of Past illness Narrative* Problem Noted Date Diagnosed Date Resolved Date Encounter for support and co ordination of transition of care 05/02/2021 07/23/2021 Overview: Hospital discharge summary: Date of admission 05/01/2021 Date of discharge: Facility: [facility] 05/01/2021 presented to the emergency room [...] 05/02/2021 Overview: HOSPITAL/ER FOLLOW UP Which facility: [facility] Dates of visit: 05/10-05/13/2020 Preadmission evaluation: [...] of this encounter (statuses as of 02/01/2023) [facility]11-13-2021 History of Past illness Narrative* Problem Noted Date Diagnosed Date Resolved Date Encounter for support and co ordination of transition of care 05/02/2021 07/23/2021 Overview: Hospital discharge summary: Date of admission 05/01/2021 Date of discharge: Facility: [facility] 05/01/2021 presented to the emergency room [...] 05/02/2021 Overview: HOSPITAL/ER FOLLOW UP Which facility: [facility] Dates of visit: 05/10-05/13/2020 Preadmission evaluation: [...] of this encounter (statuses as of 02/03/2023) [facility]11-13-2021 History of Past illness Narrative* Problem Noted Date Diagnosed Date Resolved Date Encounter for support and co ordination of transition of care 05/02/2021 07/23/2021 Overview: Hospital discharge summary: Date of admission 05/01/2021 Date of discharge: Facility: [facility] 05/01/2021 presented to the emergency room [...] 05/02/2021 Overview: HOSPITAL/ER FOLLOW UP Which facility: [facility] Dates of visit: 05/10-05/13/2020 Preadmission evaluation: [...] of this encounter (statuses as of 02/08/2023) [facility]-13-2021 History of Past illness Narrative* Problem Noted Date Diagnosed Date Resolved Date Encounter for support and co ordination of transition of care 05/02/2021 07/23/2021 Overview: Hospital discharge summary: Date of admission 05/01/2021 Date of discharge: Facility: [facility] 05/01/2021 presented to the emergency room [...] 05/02/2021 Overview: HOSPITAL/ER FOLLOW UP Which facility: [facility] Dates of visit: 05/10-05/13/2020 Preadmission evaluation: [...] of this encounter (statuses as of 02/14/2023) [facility]-13-2021 History of Past illness Narrative* Problem Noted Date Diagnosed Date Resolved Date Encounter for support and co ordination of transition of care 05/02/2021 07/23/2021 Overview: Hospital discharge summary: Date of admission 05/01/2021 Date of discharge: Facility: [facility] 05/01/2021 presented to the emergency room [...] 05/02/2021 Overview: HOSPITAL/ER FOLLOW UP Which facility: [facility] Dates of visit: 05/10-05/13/2020 Preadmission evaluation: [...] of this encounter (statuses as of 02/15/2023) [facility]-13-2021 History of Past illness Narrative* Problem Noted Date Diagnosed Date Resolved Date Encounter for support and co ordination of transition of care 05/02/2021 07/23/2021 Overview: Hospital discharge summary: Date of admission 05/01/2021 Date of discharge: Facility: [facility] 05/01/2021 presented to the emergency room [...] 05/02/2021 Overview: HOSPITAL/ER FOLLOW UP Which facility: [facility] Dates of visit: 05/10-05/13/2020 Preadmission evaluation: [...] of this encounter (statuses as of 02/16/2023) [facility]-13-2021 History of Past illness Narrative* Problem Noted Date Diagnosed Date Resolved Date Encounter for support and co ordination of transition of care 05/02/2021 07/23/2021 Overview: Hospital discharge summary: Date of admission 05/01/2021 Date of discharge: Facility: [facility] 05/01/2021 presented to the emergency room [...] 05/02/2021 Overview: HOSPITAL/ER FOLLOW UP Which facility: [facility] Dates of visit: 05/10-05/13/2020 Preadmission evaluation: [...] of this encounter (statuses as of 03/01/2023) [facility]-13-2021 History of Past illness Narrative* Problem Noted Date Diagnosed Date Resolved Date Encounter for support and co ordination of transition of care 05/02/2021 07/23/2021 Overview: Hospital discharge summary: Date of admission 05/01/2021 Date of discharge: Facility: [facility] 05/01/2021 presented to the emergency room [...] 05/02/2021 Overview: HOSPITAL/ER FOLLOW UP Which facility: [facility] Dates of visit: 05/10-05/13/2020 Preadmission evaluation: [...] of this encounter (statuses as of 03/09/2023) [facility]-2021 History of Past illness Narrative* Problem Noted Date Diagnosed Date Resolved Date Encounter for support and co ordination of transition of care 05/02/2021 07/23/2021 Overview: Hospital discharge summary: Date of admission 05/01/2021 Date of discharge: Facility: [facility] 05/01/2021 presented to the emergency room [...] 05/02/2021 Overview: HOSPITAL/ER FOLLOW UP Which facility: [facility] Dates of visit: 05/10-05/13/2020 Preadmission evaluation: [...] of this encounter (statuses as of 03/12/2023) [facility]-13-2021 History of Past illness Narrative* Problem Noted Date Diagnosed Date Resolved Date Encounter for support and co ordination of transition of care 05/02/2021 07/23/2021 Overview: Hospital discharge summary: Date of admission 05/01/2021 Date of discharge: Facility: [facility] 05/01/2021 presented to the emergency room [...] 05/02/2021 Overview: HOSPITAL/ER FOLLOW UP Which facility: [facility] Dates of visit: 05/10-05/13/2020 Preadmission evaluation: [...] of this encounter (statuses as of 04/25/2023) [facility]-2021 History of Past illness Narrative* Problem Noted Date Diagnosed Date Resolved Date Encounter for support and co ordination of transition of care 05/02/2021 07/23/2021 Overview: Hospital discharge summary: Date of admission 05/01/2021 Date of discharge: Facility: [facility] 05/01/2021 presented to the emergency room [...] 05/02/2021 Overview: HOSPITAL/ER FOLLOW UP Which facility: [facility] Dates of visit: 05/10-05/13/2020 Preadmission evaluation: [...] of this encounter (statuses as of 04/25/2023) [facility]-2021 History of Past illness Narrative* Problem Noted Date Diagnosed Date Resolved Date Encounter for support and co ordination of transition of care 05/02/2021 07/23/2021 Overview: Hospital discharge summary: Date of admission 05/01/2021 Date of discharge: Facility: [facility] 05/01/2021 presented to the emergency room [...] 05/02/2021 Overview: HOSPITAL/ER FOLLOW UP Which facility: [facility] Dates of visit: 05/10-05/13/2020 Preadmission evaluation: [...] of this encounter (statuses as of 04/25/2023) [facility]-13-2021 History of Past illness Narrative* Problem Noted Date Diagnosed Date Resolved Date Encounter for support and co ordination of transition of care 05/02/2021 07/23/2021 Overview: Hospital discharge summary: Date of admission 05/01/2021 Date of discharge: Facility: [facility] 05/01/2021 presented to the emergency room [...] 05/02/2021 Overview: HOSPITAL/ER FOLLOW UP Which facility: [facility] Dates of visit: 05/10-05/13/2020 Preadmission evaluation: [...] of this encounter (statuses as of 05/11/2023) [facility]-2021 History of Past illness Narrative* Problem Noted Date Diagnosed Date Resolved Date Encounter for support and co ordination of transition of care 05/02/2021 07/23/2021 Overview: Hospital discharge summary: Date of admission 05/01/2021 Date of discharge: Facility: [facility] 05/01/2021 presented to the emergency room [...] 05/02/2021 Overview: HOSPITAL/ER FOLLOW UP Which facility: [facility] Dates of visit: 05/10-05/13/2020 Preadmission evaluation: [...] of this encounter (statuses as of 05/20/2023) [facility]20[facility] History of Past illness Narrative* Problem Noted Date Diagnosed Date Resolved Date Encounter for support and co ordination of transition of care 05/02/2021 07/23/2021 Overview: Hospital discharge summary: Date of admission 05/01/2021 Date of discharge: Facility: [facility] 05/01/2021 presented to the emergency room [...] 05/02/2021 Overview: HOSPITAL/ER FOLLOW UP Which facility: [facility] Dates of visit: 05/10-05/13/2020 Preadmission evaluation: [...] of this encounter (statuses as of 05/25/2023) [facility] Diagnosis Vitamin D deficiency Unspecified vitamin [...] Inconclusive mammogram- Primary [facility] Diagnosis NO SHOW- Primary documented in this encounter [facility]* Diagnosis Radiculopathy, lumbar region- Primary Thoracic or lumbosacral neuritis or radiculitis, unspecified [facility] Diagnosis Alcohol abuse- Primary Alcohol abuse, unspecified Delusional disorder (HCC) Gastroesophageal reflux disease without esophagitis Esophageal reflux Hyperglycemia Other abnormal glucose Primary hypertension Unspecified essential hypertension documented in this encounter [facility] note* Diagnosis Essential hypertension Unspecified essential hypertension [facility] Diagnosis Inconclusive mammogram [facility] Diagnosis Alcohol abuse- Primary Alcohol abuse, [...] of mild degree documented in this encounter [facility] note* Diagnosis History of colonic polyps- Primary Personal history of colonic polyps Chronic active hepatitis C (HCC) Gastroesophageal reflux disease, unspecified whether esophagitis present documented in this encounter [facility] note* Diagnosis Chronic active hepatitis C (HCC) documented in this encounter [facility] note* Diagnosis History of colonic polyps Personal history of colonic polyps [facility] Diagnosis Radiculopathy, lumbar region- Primary Thoracic or lumbosacral neuritis or radiculitis, unspecified Spinal stenosis of lumbar region without neurogenic claudication Spinal stenosis, lumbar region, without neurogenic claudication Lumbar spondylosis Lumbosacral spondylosis without myelopathy Chronic bilateral low back pain without sciatica History of urinary urgency Personal history of other disorder of urinary system Cervical spondylosis without myelopathy documented in this encounter [facility] note* Diagnosis Cervical spondylosis without myelopathy- Primary Radiculopathy, lumbar region Thoracic or lumbosacral neuritis or radiculitis, unspecified Spinal stenosis, lumbar region, without neurogenic claudication Cervical spondylosis without myelopathy Cervical spondylosis without myelopathy [facility] Diagnosis Urge incontinence- Primary Stress incontinence, female Female stress incontinence Radiculopathy, lumbar region Thoracic or lumbosacral neuritis or radiculitis, unspecified Spinal stenosis, lumbar region, without neurogenic claudication Cervical spondylosis without myelopathy Cervical spondylosis without myelopathy [facility] Diagnosis Other chronic pain- Primary Radiculopathy, lumbar region Thoracic or lumbosacral neuritis or radiculitis, unspecified Spinal stenosis, lumbar region, without neurogenic claudication Cervical spondylosis without myelopathy Cervical spondylosis without myelopathy [facility] Diagnosis Closed fracture of upper extremity, unspecified laterality, initial encounter- Primary Radiculopathy, lumbar region Thoracic or lumbosacral neuritis or radiculitis, unspecified Spinal stenosis, lumbar region, without neurogenic claudication Cervical spondylosis without myelopathy Cervical spondylosis without myelopathy [facility] Diagnosis Vaginal discharge- Primary Leukorrhea, not specified as infective Cervical spondylosis without myelopathy Cervical spondylosis without myelopathy [facility] Cervical spondylosis without myelopathy- Primary Cervical spondylosis without myelopathy [facility] Diagnosis Essential hypertension Unspecified essential hypertension Low serum potassium Hyperlipidemia, mixed Mixed hyperlipidemia Fibromyalgia Mylagia and myositis, unspecified Cervical spondylosis without myelopathy [facility] Diagnosis Cervical spondylosis without myelopathy- Primary [...] acquired Unspecified hypothyroidism [facility] Diagnosis Radiculopathy, lumbar region Thoracic or lumbosacral neuritis or radiculitis, unspecified Spinal stenosis, lumbar region, without neurogenic claudication [facility] Diagnosis Vitamin D deficiency Unspecified vitamin D deficiency [facility] Diagnosis Dehydration- Primary Postural dizziness with [...] Other speech disturbance [facility] Diagnosis Cervical spondylosis without myelopathy- Primary [facility] Diagnosis Chronic hepatitis C without hepatic coma (HCC)- Primary Chronic hepatitis C without mention of hepatic coma Cervical spondylosis without myelopathy Cervical spondylosis without myelopathy [facility] Diagnosis Chronic hepatitis C without hepatic coma (HCC)- Primary Chronic hepatitis C without mention of hepatic coma Gastroesophageal reflux disease, unspecified whether esophagitis present Cervical spondylosis without myelopathy Cervical spondylosis without myelopathy [facility] Diagnosis Radiculopathy, lumbar region Thoracic or lumbosacral neuritis or radiculitis, unspecified Cervical spondylosis without myelopathy [facility] Diagnosis Alcohol abuse, in remission- Primary [...] spondylosis without myelopathy [facility] Diagnosis Tobacco abuse Tobacco use disorder Cervical spondylosis without myelopathy [facility] Diagnosis Essential hypertension Unspecified essential hypertension [facility] Diagnosis Cognitive impairment- Primary Unspecified persistent mental disorders due to conditions classified elsewhere Alcohol abuse, in remission Nondependent alcohol abuse, in remission Polysubstance abuse (HCC) Other, mixed, or unspecified nondependent drug abuse, unspecified Polypharmacy Encounter for long-term (current) use of other medications [facility] Hospital discharge follow-up- Primary Other [...] of hepatic coma [facility] Diagnosis Vaginal discharge- Primary Leukorrhea, not specified as infective Screening examination for STD (sexually transmitted disease) Screening examination for venereal disease [facility] Diagnosis Chronic left-sided low back pain with sciatica, sciatica laterality unspecified- Primary Spinal stenosis of lumbar region without neurogenic claudication Spinal stenosis, lumbar region, without neurogenic claudication Lumbar spondylosis Lumbosacral spondylosis without myelopathy Fibromyalgia Mylagia and myositis, unspecified Other chronic pain [facility] Diagnosis Spinal stenosis of lumbar region without neurogenic claudication Spinal stenosis, lumbar region, without neurogenic claudication [facility] Diagnosis Radiculopathy, lumbar region Thoracic or lumbosacral neuritis or radiculitis, unspecified [facility] Diagnosis COPD (chronic obstructive pulmonary disease) with chronic bronchitis (HCC)- Primary Obstructive chronic bronchitis without exacerbation [facility] Diagnosis Radiculopathy, lumbar region Thoracic or lumbosacral neuritis or radiculitis, unspecified [facility] Diagnosis Hyperlipidemia, mixed Mixed hyperlipidemia Fibromyalgia Mylagia and myositis, unspecified Stress incontinence Female stress incontinence Alcohol abuse, in remission Nondependent alcohol abuse, in remission Chronic hepatitis C without hepatic coma (HCC) Chronic hepatitis C without mention of hepatic coma Memory impairment Memory loss Iron deficiency anemia, unspecified iron deficiency anemia type [facility] Diagnosis Cognitive impairment, mild, so stated- [...] or radiculitis, unspecified [facility] Diagnosis Vitamin D deficiency Unspecified vitamin D deficiency [facility] Diagnosis Cognitive impairment- Primary Unspecified persistent mental disorders due to conditions classified elsewhere Alcohol abuse, in remission Nondependent alcohol abuse, in remission Polysubstance abuse (HCC) Other, mixed, or unspecified nondependent drug abuse, unspecified Polypharmacy Encounter for long-term (current) use of other medications [facility] Diagnosis Chronic left-sided low back pain with sciatica, sciatica laterality unspecified- Primary DDD (degenerative disc disease), lumbar Degeneration of lumbar or lumbosacral intervertebral disc Lumbar spondylosis Lumbosacral spondylosis without myelopathy Gait instability Abnormality of gait Weight loss Loss of weight [facility] Diagnosis Lumbar spondylosis- Primary Lumbosacral spondylosis without myelopathy Cervical spondylosis without myelopathy Spinal stenosis of lumbar region without neurogenic claudication Spinal stenosis, lumbar region, without neurogenic claudication Myofascial pain Mylagia and myositis, unspecified [facility] Diagnosis Mastodynia of left breast- Primary Dense breast tissue Vaginal discharge Leukorrhea, not specified as infective Vaginal odor Unspecified symptom associated with female genital organs [facility] Diagnosis Hypertension, essential- Primary Unspecified essential hypertension [facility] Diagnosis Primary hypertension- Primary Unspecified essential hypertension Unspecified essential hypertension [facility]* Diagnosis Cognitive impairment- Primary Unspecified persistent [...] depression type Hallucinations documented in [facility]* Diagnosis Displacement of lumbar intervertebral disc without myelopathy- Primary Radiculopathy, lumbar region Thoracic or lumbosacral neuritis or radiculitis, unspecified [facility]* Diagnosis Displacement of lumbar intervertebral disc without myelopathy- Primary Radiculopathy, lumbar region Thoracic or lumbosacral neuritis or radiculitis, unspecified Displacement of lumbar intervertebral disc without myelopathy Radiculopathy, lumbar region Thoracic or lumbosacral neuritis or radiculitis, unspecified documented [facility]* Diagnosis Hyperlipidemia, mixed Mixed hyperlipidemia Fibromyalgia [...] or radiculitis, unspecified [facility]* Diagnosis Vitamin D deficiency Unspecified vitamin D deficiency [facility] Diagnosis Fibrocystic breast changes, bilateral- Primary Mastodynia of left breast Dense breast tissue Family history of breast cancer Family history of malignant neoplasm of breast Family history of ovarian cancer Family history of malignant neoplasm of ovary [facility] Diagnosis Lumbar radiculopathy- Primary Thoracic or lumbosacral neuritis or radiculitis, unspecified Primary osteoarthritis of right hip Primary localized osteoarthrosis, pelvic region and thigh documented [facility]* Diagnosis Primary osteoarthritis of right hip- Primary Primary localized osteoarthrosis, pelvic region and thigh Lumbar radiculopathy Thoracic or lumbosacral neuritis or radiculitis, unspecified [facility] Diagnosis Breast pain Mastodynia documented [facility]* Diagnosis Transient cerebral ischemia, unspecified type Balance problem Other symptoms involving nervous and musculoskeletal systems Falls frequently Personal history of fall [facility] this [facility] Diagnosis Breast pain Mastodynia documented in this encounter [facility]* Diagnosis Weakness of both hands- Primary Numbness and tingling in both hands Complaining of cold hands documented [facility] this [facility] Diagnostic Procedure Only (Routine) - Authorized Specialty Diagnoses / Procedures Referred By Lauraac t Referred To Contact BR IMAGING Diagnoses Abnormal mammogram Procedures US BREAST LTD LT US BREAST UNI REAL TIME WITH IMAGE LIMITED Mitul Abbott MD [facility] [place] [address] Br Imaging [address] [place] [address] Referral ID Status Reason Start Date Expiration Date Visits Requested Visits Authorized [id number] Authorized Auto-Generat ed Referral 10/02/2021 11/01/2022 1 1 * Diagnostic Procedure Only (Routine) - Authorized Specialty Diagnoses / Procedures Referred By Contac t Referred To Contact BR IMAGING Diagnoses Abnormal mammogram Procedures US BREAST LTD RT US BREAST UNI REAL TIME WITH IMAGE LIMITED Mitul Abbott MD [facility] [place] [address] [facility] [address] [place] [address] Referral ID Status Reason Start Date Expiration Date Visits Requested Visits Authorized [id number] Authorized Auto-Generat ed Referral 10/02/2021 11/01/2022 1 1 * Diagnostic Procedure Only (Routine) - Authorized Specialty Diagnoses / Procedures Referred By Contac t Referred To Contact BR IMAGING Diagnoses Abnormal mammogram Procedures SHILOH DIAGNOSTIC BILAT DIAGNOSTIC MAMMOGRAPHY COMPUTER-AIDED DETCJ BI Mitul Abbott MD [address] [id number] [facility] [address] [place] [address] Referral ID Status Reason Start Date Expiration Date Visits Requested Visits Authorized [id number] Authorized Auto-Generat ed Referral 10/02/2021 11/01/2022 1 1 [facility] for referral (narrative)* Diagnostic Procedure Only (Routine) - Pending Review Specialty Diagnoses / Procedures Referred By Contac t Referred To Contact BR IMAGING Diagnoses Inconclusive mammogram Procedures US BREAST LTD RT US BREAST UNI REAL TIME WITH IMAGE LIMITED Jaimee Palomares PA-C [address] [place] [address] [facility] [address] [place] [address] Referral ID Status Reason Start Date Expiration Date Visits Requested Visits Authorized [id number] Pending Review Auto-Generat ed Referral 10/04/2021 11/03/2022 1 1 * Diagnostic Procedure Only (Routine) - Pending Review Specialty Diagnoses / Procedures Referred By Contac t Referred To Contact BR IMAGING Diagnoses Inconclusive mammogram Procedures US BREAST LTD LT US BREAST UNI REAL TIME WITH IMAGE LIMITED Jaimee Palomares PA-C [address] [place] [address] Br Imaging [address] [place] [address] Referral ID Status Reason Start Date Expiration Date Visits Requested Visits Authorized [id number] Pending Review Auto-Generat ed Referral 10/04/2021 11/03/2022 1 1 * Diagnostic Procedure Only (Routine) - Pending Review Specialty Diagnoses / Procedures Referred By Contac t Referred To Contact BR IMAGING Diagnoses Inconclusive mammogram Procedures SHILOH DIAGNOSTIC BILAT DIAGNOSTIC MAMMOGRAPHY COMPUTER-AIDED DETCJ BI Jaimee Palomares PA-C [address] [place] [address] Br Imaging [address] [place] [address] Referral ID Status Reason Start Date Expiration Date Visits Requested Visits Authorized [id number] Pending Review Auto-Generat ed Referral 10/04/2021 11/03/2022 1 1 [facility] for referral (narrative)* Diagnostic Procedure Only (Routine) - Closed Specialty Diagnoses / Procedures Referred By Contac t Referred To Contact XR IMAGING Diagnoses Cervicalgia Procedures XR CERV OTHER 4V AP/LAT/OBL RADEX SPINE CERVICAL 4 OR 5 VIEWS Jaimee Palomares PA-C [address] [place] [address] Xr Imaging Referral ID Status Reason Start Date Expiration Date V isits Requested Visits Authorized [id number] Closed Auto-Generate d Referral 11/12/2021 12/12/2022 1 1 * Consult, Test, Treat (Routine) - Authorized Specialty Diagnoses / Procedures Referred By Contac t Referred To Contact General Surgery Diagnoses Screening for colon cancer Procedures CONSULT TO GENERAL SURGERY OFFICE/OUTPATIENT NEW HIGH MDM 60-74 MINUTES Jaimee Palomares PA-C [address] [place] [address] Referral ID Status Reason Start Date Expiration Date Visits Requested Visits Authorized [id number] Authorized PCP Requested Referral 11/12/2021 11/12/2022 1 1 * Physical Therapy (Routine) - Pending Review Specialty Diagnoses / Procedures Referred By Contac t Referred To Contact [facility] Diagnoses Stress incontinence Procedures CONSULT TO PHYSICAL THERAPY PHYSICAL THERAPY EVALUATION HIGH COMPLEX 45 MINS Jaimee Palomares PA-C [address] [place] [address] [facility] [place] [id number] Referral ID Status Reason Start Date Expiration Date Visits Requested Visits Authorized [id number] Pending Review Auto-Generat ed Referral 11/12/2021 11/12/2022 1 1 [facility] for referral (narrative)* Outpatient Procedure (Routine) - Authorized Specialty Diagnoses / Procedures Referred By Contac t Referred To Contact [facility] Diagnoses History of colonic polyps Procedures COLONOSCOPY DIAGNOSTIC COLONOSCOPY FLX DX W/COLLJ SPEC WHEN PFRMD Josué Blevins MD [address] [place] [address] [address] Referral ID Status Reason Start Date Expiration Date Visits Requested Visits Authorized [id number] Authorized Auto-Generat ed Referral 11/23/2021 11/23/2022 1 1 * Diagnostic Procedure Only (Routine) - Authorized Specialty Diagnoses / Procedures Referred By Contac t Referred To Contact US IMAGING Diagnoses Chronic active hepatitis C (HCC) Procedures US ABD RT UPPER QUADRANT US ABDOMINAL REAL TIME W/IMAGE LIMITED Josué Blevins MD [address] [place] [address] Us Imaging Referral ID Status Reason Start Date Expiration Date Visits Requested Visits Authorized [id number] Authorized Auto-Generat ed Referral 11/23/2021 12/23/2022 1 1 * Outpatient Procedure (Routine) - Pending Review Specialty Diagnoses / Procedures Referred By Yana cartwright Referred To Contact [facility] Diagnoses Chronic active hepatitis C (HCC) Procedures DDI VIBRATION CONTROLLED TRANSIENT ELASTOGRAPHY (VCTE) LIVER ELASTOGRAPHY W/O IMAG W/I&R Josué Blevins MD [address] [place] [address] [facility] [address] [place] [address] Referral ID Status Reason Start Date Expiration Date Visits Requested Visits Authorized [id number] Pending Review Auto-Generat ed Referral 11/23/2021 11/23/2022 1 1 [facility] for referral (narrative)* Diagnostic Procedure Only (Routine) - Closed Specialty Diagnoses / Procedures Referred By Yana cartwright Referred To Contact US IMAGING Diagnoses Chronic active hepatitis C (HCC) Procedures US ABD RT UPPER QUADRANT US ABDOMINAL REAL TIME W/IMAGE LIMITED Josué Blevins MD [address] [place] [address] Us Imaging Referral ID Status Reason Start Date Expiration Date V isits Requested Visits Authorized [id number] Closed Auto-Generate d Referral 11/23/2021 12/23/2022 1 1 [facility] for referral (narrative)* Outpatient Procedure (Routine) - Closed Specialty Diagnoses / Procedures Referred By Yana cartwright Referred To Contact [facility] Diagnoses History of colonic polyps Procedures COLONOSCOPY DIAGNOSTIC COLONOSCOPY FLX DX W/COLLJ SPEC WHEN PFRMD Josué Blevins MD [address] [place] [address] [facility] [address] [place] [address] Referral ID Status Reason Start Date Expiration Date V isits Requested Visits Authorized [id number] Closed Auto-Generate d Referral 11/23/2021 11/23/2022 1 1 [facility] for referral (narrative)* - Pending Review Specialty Diagnoses / Procedures Referred By Contac t Referred To Contact Physical Therapy Diagnoses Spinal stenosis of lumbar region without neurogenic claudication Procedures CONSULT TO PHYSICAL THERAPY Shira Kam, CLINICAL ASSOCIATE.SEWING MACHINE OPERATOR [address] [place] [address] Referral ID Status Reason Start Date Expiration Date V isits Requested Visits Authorized [id number] Pending Review 06/03/2022 09/01/2022 1 1 [facility] for referral (narrative)* Diagnostic Procedure Only (Routine) - Closed Specialty Diagnoses / Procedures Referred By Contac t Referred To Contact BR IMAGING Diagnoses Breast pain Procedures US BREAST LTD LT US BREAST UNI REAL TIME WITH IMAGE LIMITED Memo Huber MD [address] [place] [address] Br Imaging [address] [place] [address] Referral ID Status Reason Start Date Expiration Date V isits Requested Visits Authorized [id number] Closed Auto-Generate d Referral 07/29/2022 08/28/2023 1 1 [facility] for visit Narrative* Diagnostic Procedure Only (Routine) - Closed Specialty Diagnoses / Procedures Referred By Contac t Referred To Contact BR IMAGING Diagnoses Inconclusive mammogram Procedures SHILOH DIAGNOSTIC BILAT DIAGNOSTIC MAMMOGRAPHY COMPUTER-AIDED DETCJ BI Jaimee Palomares PA-C [address] [place] [address] Br Imaging [address] [place] [address] Referral ID Status Reason Start Date Expiration Date V isits Requested Visits Authorized [id number] Closed Auto-Generate d Referral 10/04/2021 11/03/2022 1 1 [facility] for visit Narrative* Diagnostic Procedure Only (Routine) - Closed Specialty Diagnoses / Procedures Referred By Contac t Referred To Contact US IMAGING Diagnoses Chronic active hepatitis C (HCC) Procedures US ABD RT UPPER QUADRANT US ABDOMINAL REAL TIME W/IMAGE LIMITED Josué Blevins MD [address] [place] [address] Us Imaging Referral ID Status Reason Start Date Expiration Date V isits Requested Visits Authorized [id number] Closed Auto-Generate d Referral 11/23/2021 12/23/2022 1 1 [facility] for visit Narrative* Outpatient Procedure (Routine) - Closed Specialty Diagnoses / Procedures Referred By Contac t Referred To Contact [facility] Diagnoses History of colonic polyps Procedures COLONOSCOPY DIAGNOSTIC COLONOSCOPY FLX DX W/COLLJ SPEC WHEN PFRMD Josué Blevins MD [address] [place] [address] [facility] [place] [address] [place] [address] Referral ID Status Reason Start Date Expiration Date V isits Requested Visits Authorized [id number] Closed Auto-Generate d Referral 11/23/2021 11/23/2022 1 1 [facility] for visit Narrative* Auth/Cert Specialty Diagnoses / Procedures Referred By Lauraac t Referred To Contact Diagnoses Radiculopathy, lumbar region Spinal stenosis, lumbar region, without neurogenic claudication Radiculopathy, lumbar region [M54.16] Spinal stenosis, lumbar region, without neurogenic claudication [M48.061] Procedures NJX AA&/STRD TFRML EPI LUMBAR/SACRAL 1 LEVEL INJECTION ANESTHETIC AGENT/STEROID TRANSFORAMINAL EPIDURAL W/ IMAGING GUIDANCE LUMBAR BILATERAL [facility] [address] [place] [address] Referral ID Status Reason Start Date Expiration Date Visits Re quested Visits Authorized [id number] 1 1 [facility] for visit Narrative* Diagnostic Procedure Only (Routine) - Closed Specialty Diagnoses / Procedures [facility] Ref[facility] To Contact [facility] Diagnoses Breast pain Procedures SHILOH DIAGNOSTIC BILAT DIAGNOSTIC MAMMOGRAPHY COMPUTER-AIDED DETCJ BI Memo Huber MD [address] [place] [address] Br Imaging [address] [place] [address] Referral ID Status Reason Start Date Expiration Date V isits Requested Visits Authorized [id number] Closed Auto-Generate d Referral 07/29/2022 08/28/2023 1 1 [facility] Summary Purpose Family History No Family History Records FoundNo Family History Records FoundNo Family History Records FoundNo Family History Records Found Advance Directives No Advanced Directives Records FoundDocuments on File Type Date Recorded Patient Web Sizer Expl anation Advance Directive(s) 10/12/2018 8:00 AM [...] Documents on File Type Date Recorded Patient Web Sizer Expl anation Advance Directive(s) 10/12/2018 8:00 AM [...] Documents on File Type Date Recorded Patient Web Sizer Expl anation Advance Directive(s) 11/27/2021 2:06 PM [...] Documents on File Type Date Recorded Patient Web Sizer Expl anation Advance Directive(s) 11/27/2021 2:06 PM [...] Specialty Diagnoses / Procedures Referred By Yana cartwrigth Referred To Contact Jaimee Palomares PA-C [address] [place] [address] Referral ID Status Reason Start Date Expiration Date V isits Requested Visits Authorized [id number] Pending Review 1 1 Referral ID Status Reason Start Date Expiration Date V isits Requested Visits Authorized [id number] Pending Review 1 1 Specialty Diagnoses / Procedures Referred By Contac t Referred To Contact Diagnoses Radiculopathy, lumbar region Spinal stenosis of lumbar region without neurogenic claudication Procedures CONSULT TO [facility] Denice Gr, CLINICAL ASSOCIATE.SEWING MACHINE OPERATOR [address] [place] [address] [facility] [address] [id number] Referral ID Status Reason Start Date Expiration Date Visits Requested Visits Authorized [id number] Authorized PCP Requested Referral 12/09/2021 03/09/2022 1 1 Specialty Diagnoses / Procedures Referred By Contac t Referred To Contact Urology Diagnoses History of urinary urgency Procedures CONSULT TO UROLOGY OFFICE/OUTPATIENT [facility] MDM 60-74 MINUTES Denice Gr, CLINICAL ASSOCIATE.SEWING MACHINE OPERATOR [address] [place] [address] Referral ID Status Reason Start Date Expiration Date Visits Requested Visits Authorized [id number] Authorized PCP Requested Referral 12/09/2021 12/09/2022 1 1 Specialty Diagnoses / Procedures Referred By Contac t Referred To Contact Diagnoses Other chronic pain Procedures CONSULT TO [facility] Denice Gr, CLINICAL ASSOCIATE.SEWING MACHINE OPERATOR [address] [place] [address] Home Care [address] [place] [address] Referral ID Status Reason Start Date Expiration Date V isits Requested Visits Authorized [id number] Closed PCP Requested Referral 01/04/2022 04/04/2022 1 1 Specialty Diagnoses / Procedures Referred By Contac t Referred To Contact MR IMAGING Diagnoses Cognitive impairment, mild, so stated Memory impairment Slurred speech Procedures MRI BRAIN WO IVCON MRI BRAIN BRAIN STEM W/O CONTRAST MATERIAL Jaimee Palomares PA-C [address] [place] [address] Mr Imaging Referral ID Status Reason Start Date Expiration Date Visits Requested Visits Authorized [id number] Pending Review Auto-Generat ed Referral 02/27/2022 03/29/2023 1 1 Specialty Diagnoses / Procedures Referred By Contac t Referred To Contact Neurology Diagnoses Memory impairment Chronic hepatitis C without hepatic coma (HCC) Alcohol abuse, in remission Procedures CONSULT TO NEUROLOGY OFFICE/OUTPATIENT [facility] 60-74 MINUTES Jaimee Palomares PA-C [address] [place] [address] Referral ID Status Reason Start Date Expiration Date Visits Requested Visits Authorized [id number] Authorized PCP Requested Referral 02/25/2022 02/25/2023 1 1 Specialty Diagnoses / Procedures Referred By Contac t Referred To Contact CT IMAGING Diagnoses Lung nodules Procedures CT CHEST WO IVCON DIAGNOSTIC COMPUTED TOMOGRAPHY THORAX W/O CNTRST Jaimee Palomares PA-C [address] [place] [address] Ct Imaging Referral ID Status Reason Start Date Expiration Date Visits Requested Visits Authorized [id number] Pending Review Auto-Generat ed Referral 06/13/2023 1 1 Specialty Diagnoses / Procedures Referred By Contac t Referred To Contact Memo Huber MD [address] [place] [address] Referral ID Status Reason Start Date Expiration Date Visits Re quested Visits Authorized [id number] Closed 1 1 Referral ID Status Reason Start Date Expiration Date Visits Re quested Visits Authorized [id number] Closed 1 1 Specialty Diagnoses / Procedures Referred By Contac t Referred To Contact Breast Diseases Diagnoses Mastodynia of left breast Dense breast tissue Procedures CONSULT TO BREAST CENTER OFFICE/OUTPATIENT [facility] 60-74 MINUTES Jenifer [place] [address] Referral ID Status Reason Start Date Expiration Date Visits Requested Visits Authorized [id number] Authorized PCP Requested Referral 10/20/2022 10/20/2023 1 1 Specialty Diagnoses / Procedures Referred By Contac t Referred To Contact MR IMAGING Diagnoses Transient cerebral ischemia, unspecified type Balance problem Falls frequently Procedures MRI BRAIN WO IVCON MRI BRAIN BRAIN STEM W/O CONTRAST MATERIAL Urvashi Hughes, CLINICAL ASSOCIATE.SEWING MACHINE OPERATOR [address] [place] [address] Mr Imaging Referral ID Status Reason Start Date Expiration Date Visits Requested Visits Authorized [id number] Pending Review Auto-Generat ed Referral 12/16/2022 01/15/2024 1 1 Specialty Diagnoses / Procedures Referred By Contac t Referred To Contact [facility] Diagnoses Cognitive impairment Hallucinations Procedures EPIL EEG ROUTINE ELECTROENCEPHALOGRAM REC COMA/SLEEP ONLY Urvashi Hughes, CLINICAL ASSOCIATE.SEWING MACHINE OPERATOR [address] [place] [address] [address] Referral ID Status Reason Start Date Expiration Date Visits Requested Visits Authorized [id number] Authorized Auto-Generat ed Referral 12/16/2022 12/17/2023 1 1 Specialty Diagnoses / Procedures Referred By Contac t Referred To Contact Diagnoses Alcohol abuse, in remission Polysubstance abuse (HCC) Depression, unspecified depression type Procedures CONSULT TO PSYCHIATRY OFFICE/OUTPATIENT [facility] 60-74 MINUTES Urvashi Hughes, CLINICAL ASSOCIATE.SEWING MACHINE OPERATOR [address] [place] [address] Referral ID Status Reason Start Date Expiration Date Visits Requested Visits Authorized [id number] Pending Review PCP Requested Referral 12/16/2022 12/16/2023 1 1 Referral ID Status Reason Start Date Expiration Date Visits Re quested Visits Authorized [id number] Closed 1 1 Specialty Diagnoses / Procedures Referred By Contac t Referred To Contact Diagnoses Family history of breast cancer Family history of ovarian cancer Procedures CONSULT TO MEDICAL GENETICS - CANCER MEDICAL GENETICS COUNSELING EACH 30 MINUTES Agustina Brown PA-C [address] [facility] [place] [address] [facility] [place] [address] [place] [address] Referral ID Status Reason Start Date Expiration Date Visits Requested Visits Authorized [id number] Authorized PCP Requested Referral Auto-Generate d Referral 02/14/2023 02/14/2024 1 1 Specialty Diagnoses / Procedures Referred By Contac t Referred To Contact [facility] Diagnoses Primary osteoarthritis of right hip Lumbar radiculopathy Procedures PT AQUATIC REHAB FOLLOW UP ORDER THER PX 1/> AREAS EACH 15 MIN AQUA THER W/XERSS Pt c Bath [address] [place] [address] [facility] [place] [address] [place] [id number] Referral ID Status Reason Start Date Expiration Date Visits Requested Visits Authorized [id number] Pending Review PCP Requested Referral Auto-Generate d Referral 02/16/2023 05/17/2023 1 1 Specialty Diagnoses / Procedures Referred By Contac t Referred To Contact MR IMAGING Diagnoses Transient cerebral ischemia, unspecified type Balance problem Falls frequently Procedures MRI BRAIN WO IVCON MRI BRAIN BRAIN STEM W/O CONTRAST MATERIAL Urvashi Hughes, CLINICAL ASSOCIATE.SEWING MACHINE OPERATOR [address] [place] [address] Mr Imaging [facility] Referral ID Status Reason Start Date Expiration Date V isits Requested Visits Authorized [id number] Closed Auto-Generate d Referral 01/12/2023 03/13/2023 1 1 Specialty Diagnoses / Procedures Referred By Contac t Referred To Contact MR IMAGING Diagnoses Weakness of both hands Numbness and tingling in both hands Complaining of cold hands Procedures MRI CERVICAL SPINE WO IVCON MRI SPINAL CANAL CERVICAL W/O CONTRAST MATRL Flo Martino MD [address] [place] [address] Mr Imaging [facility] Referral ID Status Reason Start Date Expiration Date V isits Requested Visits Authorized [id number] Open Auto-Generate d Referral 05/10/2023 06/08/2024 1 1 Specialty Diagnoses / Procedures Referred By Contac t Referred To Contact [facility] Diagnoses Complaining of cold hands Procedures US ARM ARTERIAL KAMRAN VAS LAB DUP-SCAN UXTR ART/ARTL BPGS COMPL BI STUDY Flo Martino MD [address] [place] [address] [facility] [place] [address] [place] [address] Referral ID Status Reason Start Date Expiration Date Visits Requested Visits Authorized [id number] Authorized Auto-Generat ed Referral 3 05/09/2024 1 1 Specialty Diagnoses / Procedures Referred By Contact Referred To Contact [facility] Diagnoses Weakness of both hands Numbness and tingling in both hands Procedures EMG(NEURO/NI) NERVE CONDUCTION STUDIES 9-10 STUDIES Flo Martino MD [address] [place] [address] Neurological [facility] [address] [place] [address] Referral ID Status Reason Start Date Expiration Date Visits Requested Visits Authorized [id number] Authorized Auto-Generat ed Referral 3 05/10/2024 1 1 Additional Source Comments INFORMATION SOURCE (unrecogn ized section and content) DATE CREATED AUTHOR AUTHOR'S ORGANIZ ATION 05/25/2019 [facility] DATE CREATED AUTHOR AUTHOR'S ORGANIZ ATION 05/29/2023 [facility] DATE CREATED AUTHOR AUTHOR'S ORGANIZ ATION 06/22/2023 [facility] Source Comments (unrecognize d section and content) In the event this informatio n is protected by the Federal Confidentiality of Alcohol and Drug Abuse Patient Records regulations: The Federal rules restrict any use of the information to criminally investigate or prosecute any alcohol or drug abuse patient.[facility] the event this information is protected by the Federal Confidentiality of Alcohol and Drug Abuse Patient Records regulations: The Federal rules restrict any use of the information to criminally investigate or prosecute any alcohol or drug abuse patient.[facility]In the event this information is protected by the Federal Confidentiality of Alcohol and Drug Abuse Patient Records regulations: The Federal rules restrict any use of the information to criminally investigate or prosecute any alcohol or drug abuse patient.[facility] ColumbusIn the event this information is protected by the Federal Confidentiality of Alcohol and Drug Abuse Patient Records regulations: The Federal rules restrict any use of the information to criminally investigate or prosecute any alcohol or drug abuse patient.[facility] ColumbusIn the event this information is protected by the Federal Confidentiality of Alcohol and Drug Abuse Patient Records regulations: The Federal rules restrict any use of the information to criminally investigate or prosecute any alcohol or drug abuse patient.[facility] ColumbusIn the event this information is protected by the Federal Confidentiality of Alcohol and Drug Abuse Patient Records regulations: The Federal rules restrict any use of the information to criminally investigate or prosecute any alcohol or drug abuse patient.[facility] ColumbusIn the event this information is protected by the Federal Confidentiality of Alcohol and Drug Abuse Patient Records regulations: The Federal rules restrict any use of the information to criminally investigate or prosecute any alcohol or drug abuse patient.[facility] ColumbusIn the event this information is protected by the Federal Confidentiality of Alcohol and Drug Abuse Patient Records regulations: The Federal rules restrict any use of the information to criminally investigate or prosecute any alcohol or drug abuse patient.[facility] ColumbusIn the event this information is protected by the Federal Confidentiality of Alcohol and Drug Abuse Patient Records regulations: The Federal rules restrict any use of the information to criminally investigate or prosecute any alcohol or drug abuse patient.[facility] ColumbusIn the event this information is protected by the Federal Confidentiality of Alcohol and Drug Abuse Patient Records regulations: The Federal rules restrict any use of the information to criminally investigate or prosecute any alcohol or drug abuse patient.[facility] the event this information is protected by the Federal Confidentiality of Alcohol and Drug Abuse Patient Records regulations: The Federal rules restrict any use of the information to criminally investigate or prosecute any alcohol or drug abuse patient.[facility] ColumbusIn the event this information is protected by the Federal Confidentiality of Alcohol and Drug Abuse Patient Records regulations: The Federal rules restrict any use of the information to criminally investigate or prosecute any alcohol or drug abuse patient.[facility] ColumbusIn the event this information is protected by [...] or prosecute any alcohol or drug abuse patient.[facility] ColumbusIn the event this information is protected by the Federal Confidentiality of Alcohol and Drug Abuse Patient Records regulations: The Federal rules restrict any use of the information to criminally investigate or prosecute any alcohol or drug abuse patient.[facility] ColumbusIn the event this information is protected by the Federal Confidentiality of Alcohol and Drug Abuse Patient Records regulations: The Federal rules restrict any use of the information to criminally investigate or prosecute any alcohol or drug abuse patient.[facility] ColumbusIn the event this information is protected by the Federal Confidentiality of Alcohol and Drug Abuse Patient Records regulations: The Federal rules restrict any use of the information to criminally investigate or prosecute any alcohol or drug abuse patient.[facility] ColumbusIn the event this information is protected by the Federal Confidentiality of Alcohol and Drug Abuse Patient Records regulations: The Federal rules restrict any use of the information to criminally investigate or prosecute any alcohol or drug abuse patient.[facility] ColumbusIn the event this information is protected by the Federal Confidentiality of Alcohol and Drug Abuse Patient Records regulations: The Federal rules restrict any use of the information to criminally investigate or prosecute any alcohol or drug abuse patient.[facility] ColumbusIn the event this information is protected by the Federal Confidentiality of Alcohol and Drug Abuse Patient Records regulations: The Federal rules restrict any use of the information to criminally investigate or prosecute any alcohol or drug abuse patient.[facility] ColumbusIn the event this information is protected by the Federal Confidentiality of Alcohol and Drug Abuse Patient Records regulations: The Federal rules restrict any use of the information to criminally investigate or prosecute any alcohol or drug abuse patient.[facility] ColumbusIn the event this information is protected by the Federal Confidentiality of Alcohol and Drug Abuse Patient Records regulations: The Federal rules restrict any use of the information to criminally investigate or prosecute any alcohol or drug abuse patient.[facility] ColumbusIn the event this information is protected by the Federal Confidentiality of Alcohol and Drug Abuse Patient Records regulations: The Federal rules restrict any use of the information to criminally investigate or prosecute any alcohol or drug abuse patient.[facility] ColumbusIn the event this information is protected by the Federal Confidentiality of Alcohol and Drug Abuse Patient Records regulations: The Federal rules restrict any use of the information to criminally investigate or prosecute any alcohol or drug abuse patient.[facility] ColumbusIn the event this information is protected by the Federal Confidentiality of Alcohol and Drug Abuse Patient Records regulations: The Federal rules restrict any use of the information to criminally investigate or prosecute any alcohol or drug abuse patient.[facility] ColumbusIn the event this information is protected by the Federal Confidentiality of Alcohol and Drug Abuse Patient Records regulations: The Federal rules restrict any use of the information to criminally investigate or prosecute any alcohol or drug abuse patient.[facility] ColumbusIn the event this information is protected by the Federal Confidentiality of Alcohol and Drug Abuse Patient Records regulations: The Federal rules restrict any use of the information to criminally investigate or prosecute any alcohol or drug abuse patient.[facility] ColumbusIn the event this information is protected by the Federal Confidentiality of Alcohol and Drug Abuse Patient Records regulations: The Federal rules restrict any use of the information to criminally investigate or prosecute any alcohol or drug abuse patient.[facility] ColumbusIn the event this information is protected by the Federal Confidentiality of Alcohol and Drug Abuse Patient Records regulations: The Federal rules restrict any use of the information to criminally investigate or prosecute any alcohol or drug abuse patient.[facility] ColumbusIn the event this information is protected by the Federal Confidentiality of Alcohol and Drug Abuse Patient Records regulations: The Federal rules restrict any use of the information to criminally investigate or prosecute any alcohol or drug abuse patient.[facility] ColumbusIn the event this information is protected by the Federal Confidentiality of Alcohol and Drug Abuse Patient Records regulations: The Federal rules restrict any use of the information to criminally investigate or prosecute any alcohol or drug abuse patient.[facility] ColumbusIn the event this information is protected by the Federal Confidentiality of Alcohol and Drug Abuse Patient Records regulations: The Federal rules restrict any use of the information to criminally investigate or prosecute any alcohol or drug abuse patient.[facility] ColumbusIn the event this information is protected by the Federal Confidentiality of Alcohol and Drug Abuse Patient Records regulations: The Federal rules restrict any use of the information to criminally investigate or prosecute any alcohol or drug abuse patient.[facility] ColumbusIn the event this information is protected by the Federal Confidentiality of Alcohol and Drug Abuse Patient Records regulations: The Federal rules restrict any use of the information to criminally investigate or prosecute any alcohol or drug abuse patient.[facility] ColumbusIn the event this information is protected by the Federal Confidentiality of Alcohol and Drug Abuse Patient Records regulations: The Federal rules restrict any use of the information to criminally investigate or prosecute any alcohol or drug abuse patient.[facility] ColumbusIn the event this information is protected by the Federal Confidentiality of Alcohol and Drug Abuse Patient Records regulations: The Federal rules restrict any use of the information to criminally investigate or prosecute any alcohol or drug abuse patient.[facility] ColumbusIn the event this information is protected by the Federal Confidentiality of Alcohol and Drug Abuse Patient Records regulations: The Federal rules restrict any use of the information to criminally investigate or prosecute any alcohol or drug abuse patient.[facility] ColumbusIn the event this information is protected by the Federal Confidentiality of Alcohol and Drug Abuse Patient Records regulations: The Federal rules restrict any use of the information to criminally investigate or prosecute any alcohol or drug abuse patient.[facility] ColumbusIn the event this information is protected by the Federal Confidentiality of Alcohol and Drug Abuse Patient Records regulations: The Federal rules restrict any use of the information to criminally investigate or prosecute any alcohol or drug abuse patient.[facility] ColumbusIn the event this information is protected by the Federal Confidentiality of Alcohol and Drug Abuse Patient Records regulations: The Federal rules restrict any use of the information to criminally investigate or prosecute any alcohol or drug abuse patient.[facility] ColumbusIn the event this information is protected by the Federal Confidentiality of Alcohol and Drug Abuse Patient Records regulations: The Federal rules restrict any use of the information to criminally investigate or prosecute any alcohol or drug abuse patient.[facility] ColumbusIn the event this information is protected by the Federal Confidentiality of Alcohol and Drug Abuse Patient Records regulations: The Federal rules restrict any use of the information to criminally investigate or prosecute any alcohol or drug abuse patient.[facility] ColumbusIn the event this information is protected by the Federal Confidentiality of Alcohol and Drug Abuse Patient Records regulations: The Federal rules restrict any use of the information to criminally investigate or prosecute any alcohol or drug abuse patient.[facility] ColumbusIn the event this information is protected by the Federal Confidentiality of Alcohol and Drug Abuse Patient Records regulations: The Federal rules restrict any use of the information to criminally investigate or prosecute any alcohol or drug abuse patient.[facility] ColumbusIn the event this information is protected by the Federal Confidentiality of Alcohol and Drug Abuse Patient Records regulations: The Federal rules restrict any use of the information to criminally investigate or prosecute any alcohol or drug abuse patient.[facility] ColumbusIn the event this information is protected by the Federal Confidentiality of Alcohol and Drug Abuse Patient Records regulations: The Federal rules restrict any use of the information to criminally investigate or prosecute any alcohol or drug abuse patient.[facility] ColumbusIn the event this information is protected by the Federal Confidentiality of Alcohol and Drug Abuse Patient Records regulations: The Federal rules restrict any use of the information to criminally investigate or prosecute any alcohol or drug abuse patient.[facility] ColumbusIn the event this information is protected by the Federal Confidentiality of Alcohol and Drug Abuse Patient Records regulations: The Federal rules restrict any use of the information to criminally investigate or prosecute any alcohol or drug abuse patient.[facility] ColumbusIn the event this information is protected by the Federal Confidentiality of Alcohol and Drug Abuse Patient Records regulations: The Federal rules restrict any use of the information to criminally investigate or prosecute any alcohol or drug abuse patient.[facility] ColumbusIn the event this information is protected by the Federal Confidentiality of Alcohol and Drug Abuse Patient Records regulations: The Federal rules restrict any use of the information to criminally investigate or prosecute any alcohol or drug abuse patient.[facility] ColumbusIn the event this information is protected by the Federal Confidentiality of Alcohol and Drug Abuse Patient Records regulations: The Federal rules restrict any use of the information to criminally investigate or prosecute any alcohol or drug abuse patient.[facility] ColumbusIn the event this information is protected by the Federal Confidentiality of Alcohol and Drug Abuse Patient Records regulations: The Federal rules restrict any use of the information to criminally investigate or prosecute any alcohol or drug abuse patient.[facility] ColumbusIn the event this information is protected by the Federal Confidentiality of Alcohol and Drug Abuse Patient Records regulations: The Federal rules restrict any use of the information to criminally investigate or prosecute any alcohol or drug abuse patient.[facility] ColumbusIn the event this information is protected by the Federal Confidentiality of Alcohol and Drug Abuse Patient Records regulations: The Federal rules restrict any use of the information to criminally investigate or prosecute any alcohol or drug abuse patient.[facility] ColumbusIn the event this information is protected by the Federal Confidentiality of Alcohol and Drug Abuse Patient Records regulations: The Federal rules restrict any use of the information to criminally investigate or prosecute any alcohol or drug abuse patient.[facility] ColumbusIn the event this information is protected by the Federal Confidentiality of Alcohol and Drug Abuse Patient Records regulations: The Federal rules restrict any use of the information to criminally investigate or prosecute any alcohol or drug abuse patient.[facility] ColumbusIn the event this information is protected by the Federal Confidentiality of Alcohol and Drug Abuse Patient Records regulations: The Federal rules restrict any use of the information to criminally investigate or prosecute any alcohol or drug abuse patient.[facility] ColumbusIn the event this information is protected by the Federal Confidentiality of Alcohol and Drug Abuse Patient Records regulations: The Federal rules restrict any use of the information to criminally investigate or prosecute any alcohol or drug abuse patient.[facility] ColumbusIn the event this information is protected by the Federal Confidentiality of Alcohol and Drug Abuse Patient Records regulations: The Federal rules restrict any use of the information to criminally investigate or prosecute any alcohol or drug abuse patient.[facility] ColumbusIn the event this information is protected by the Federal Confidentiality of Alcohol and Drug Abuse Patient Records regulations: The Federal rules restrict any use of the information to criminally investigate or prosecute any alcohol or drug abuse patient.[facility] the event this information is protected by the Federal Confidentiality of Alcohol and Drug Abuse Patient Records regulations: The Federal rules restrict any use of the information to criminally investigate or prosecute any alcohol or drug abuse patient.[facility] ColumbusIn the event this information is protected by the Federal Confidentiality of Alcohol and Drug Abuse Patient Records regulations: The Federal rules restrict any use of the information to criminally investigate or prosecute any alcohol or drug abuse patient.[facility] ColumbusIn the event this information is protected by [...] or prosecute any alcohol or drug abuse patient.[facility] ColumbusIn the event this information is protected by the Federal Confidentiality of Alcohol and Drug Abuse Patient Records regulations: The Federal rules restrict any use of the information to criminally investigate or prosecute any alcohol or drug abuse patient.[facility] ColumbusIn the event this information is protected by the Federal Confidentiality of Alcohol and Drug Abuse Patient Records regulations: The Federal rules restrict any use of the information to criminally investigate or prosecute any alcohol or drug abuse patient.[facility] ColumbusIn the event this information is protected by the Federal Confidentiality of Alcohol and Drug Abuse Patient Records regulations: The Federal rules restrict any use of the information to criminally investigate or prosecute any alcohol or drug abuse patient.[facility] ColumbusIn the event this information is protected by the Federal Confidentiality of Alcohol and Drug Abuse Patient Records regulations: The Federal rules restrict any use of the information to criminally investigate or prosecute any alcohol or drug abuse patient.[facility] ColumbusIn the event this information is protected by the Federal Confidentiality of Alcohol and Drug Abuse Patient Records regulations: The Federal rules restrict any use of the information to criminally investigate or prosecute any alcohol or drug abuse patient.[facility] ColumbusIn the event this information is protected by the Federal Confidentiality of Alcohol and Drug Abuse Patient Records regulations: The Federal rules restrict any use of the information to criminally investigate or prosecute any alcohol or drug abuse patient.[facility] ColumbusIn the event this information is protected by the Federal Confidentiality of Alcohol and Drug Abuse Patient Records regulations: The Federal rules restrict any use of the information to criminally investigate or prosecute any alcohol or drug abuse patient.[facility] ColumbusIn the event this information is protected by the Federal Confidentiality of Alcohol and Drug Abuse Patient Records regulations: The Federal rules restrict any use of the information to criminally investigate or prosecute any alcohol or drug abuse patient.[facility] ColumbusIn the event this information is protected by the Federal Confidentiality of Alcohol and Drug Abuse Patient Records regulations: The Federal rules restrict any use of the information to criminally investigate or prosecute any alcohol or drug abuse patient.[facility] ColumbusIn the event this information is protected by the Federal Confidentiality of Alcohol and Drug Abuse Patient Records regulations: The Federal rules restrict any use of the information to criminally investigate or prosecute any alcohol or drug abuse patient.[facility] ColumbusIn the event this information is protected by the Federal Confidentiality of Alcohol and Drug Abuse Patient Records regulations: The Federal rules restrict any use of the information to criminally investigate or prosecute any alcohol or drug abuse patient.[facility] ColumbusIn the event this information is protected by the Federal Confidentiality of Alcohol and Drug Abuse Patient Records regulations: The Federal rules restrict any use of the information to criminally investigate or prosecute any alcohol or drug abuse patient.[facility] ColumbusIn the event this information is protected by the Federal Confidentiality of Alcohol and Drug Abuse Patient Records regulations: The Federal rules restrict any use of the information to criminally investigate or prosecute any alcohol or drug abuse patient.[facility] ColumbusIn the event this information is protected by the Federal Confidentiality of Alcohol and Drug Abuse Patient Records regulations: The Federal rules restrict any use of the information to criminally investigate or prosecute any alcohol or drug abuse patient.[facility] ColumbusIn the event this information is protected by the Federal Confidentiality of Alcohol and Drug Abuse Patient Records regulations: The Federal rules restrict any use of the information to criminally investigate or prosecute any alcohol or drug abuse patient.[facility] ColumbusIn the event this information is protected by the Federal Confidentiality of Alcohol and Drug Abuse Patient Records regulations: The Federal rules restrict any use of the information to criminally investigate or prosecute any alcohol or drug abuse patient.[facility] ColumbusIn the event this information is protected by the Federal Confidentiality of Alcohol and Drug Abuse Patient Records regulations: The Federal rules restrict any use of the information to criminally investigate or prosecute any alcohol or drug abuse patient.[facility] ColumbusIn the event this information is protected by the Federal Confidentiality of Alcohol and Drug Abuse Patient Records regulations: The Federal rules restrict any use of the information to criminally investigate or prosecute any alcohol or drug abuse patient.[facility] ColumbusIn the event this information is protected by the Federal Confidentiality of Alcohol and Drug Abuse Patient Records regulations: The Federal rules restrict any use of the information to criminally investigate or prosecute any alcohol or drug abuse patient.[facility]In the event this information is protected by the Federal Confidentiality of Alcohol and Drug Abuse Patient Records regulations: The Federal rules restrict any use of the information to criminally investigate or prosecute any alcohol or drug abuse patient.[facility] ColumbusIn the event this information is protected by the Federal Confidentiality of Alcohol and Drug Abuse Patient Records regulations: The Federal rules restrict any use of the information to criminally investigate or prosecute any alcohol or drug abuse patient.[facility] ColumbusIn the event this information is protected by the Federal Confidentiality of Alcohol and Drug Abuse Patient Records regulations: The Federal rules restrict any use of the information to criminally investigate or prosecute any alcohol or drug abuse patient.[facility] ColumbusIn the event this information is protected by the Federal Confidentiality of Alcohol and Drug Abuse Patient Records regulations: The Federal rules restrict any use of the information to criminally investigate or prosecute any alcohol or drug abuse patient.[facility] ColumbusIn the event this information is protected by the Federal Confidentiality of Alcohol and Drug Abuse Patient Records regulations: The Federal rules restrict any use of the information to criminally investigate or prosecute any alcohol or drug abuse patient.[facility] ColumbusIn the event this information is protected by the Federal Confidentiality of Alcohol and Drug Abuse Patient Records regulations: The Federal rules restrict any use of the information to criminally investigate or prosecute any alcohol or drug abuse patient.[facility] ColumbusIn the event this information is protected by the Federal Confidentiality of Alcohol and Drug Abuse Patient Records regulations: The Federal rules restrict any use of the information to criminally investigate or prosecute any alcohol or drug abuse patient.[facility] ColumbusIn the event this information is protected by the Federal Confidentiality of Alcohol and Drug Abuse Patient Records regulations: The Federal rules restrict any use of the information to criminally investigate or prosecute any alcohol or drug abuse patient.[facility] ColumbusIn the event this information is protected by the Federal Confidentiality of Alcohol and Drug Abuse Patient Records regulations: The Federal rules restrict any use of the information to criminally investigate or prosecute any alcohol or drug abuse patient.[facility] ColumbusIn the event this information is protected by the Federal Confidentiality of Alcohol and Drug Abuse Patient Records regulations: The Federal rules restrict any use of the information to criminally investigate or prosecute any alcohol or drug abuse patient.[facility] ColumbusIn the event this information is protected by the Federal Confidentiality of Alcohol and Drug Abuse Patient Records regulations: The Federal rules restrict any use of the information to criminally investigate or prosecute any alcohol or drug abuse patient.[facility] ColumbusIn the event this information is protected by the Federal Confidentiality of Alcohol and Drug Abuse Patient Records regulations: The Federal rules restrict any use of the information to criminally investigate or prosecute any alcohol or drug abuse patient.[facility] ColumbusIn the event this information is protected by the Federal Confidentiality of Alcohol and Drug Abuse Patient Records regulations: The Federal rules restrict any use of the information to criminally investigate or prosecute any alcohol or drug abuse patient.[facility] ColumbusIn the event this information is protected by the Federal Confidentiality of Alcohol and Drug Abuse Patient Records regulations: The Federal rules restrict any use of the information to criminally investigate or prosecute any alcohol or drug abuse patient.[facility] ColumbusIn the event this information is protected by the Federal Confidentiality of Alcohol and Drug Abuse Patient Records regulations: The Federal rules restrict any use of the information to criminally investigate or prosecute any alcohol or drug abuse patient.[facility] ColumbusIn the event this information is protected by the Federal Confidentiality of Alcohol and Drug Abuse Patient Records regulations: The Federal rules restrict any use of the information to criminally investigate or prosecute any alcohol or drug abuse patient.[facility] ColumbusIn the event this information is protected by the Federal Confidentiality of Alcohol and Drug Abuse Patient Records regulations: The Federal rules restrict any use of the information to criminally investigate or prosecute any alcohol or drug abuse patient.[facility] ColumbusIn the event this information is protected by the Federal Confidentiality of Alcohol and Drug Abuse Patient Records regulations: The Federal rules restrict any use of the information to criminally investigate or prosecute any alcohol or drug abuse patient.[facility] ColumbusIn the event this information is protected by the Federal Confidentiality of Alcohol and Drug Abuse Patient Records regulations: The Federal rules restrict any use of the information to criminally investigate or prosecute any alcohol or drug abuse patient.[facility] ColumbusIn the event this information is protected by the Federal Confidentiality of Alcohol and Drug Abuse Patient Records regulations: The Federal rules restrict any use of the information to criminally investigate or prosecute any alcohol or drug abuse patient.[facility] ColumbusIn the event this information is protected by the Federal Confidentiality of Alcohol and Drug Abuse Patient Records regulations: The Federal rules restrict any use of the information to criminally investigate or prosecute any alcohol or drug abuse patient.[facility] ColumbusIn the event this information is protected by the Federal Confidentiality of Alcohol and Drug Abuse Patient Records regulations: The Federal rules restrict any use of the information to criminally investigate or prosecute any alcohol or drug abuse patient.[facility] ColumbusIn the event this information is protected by the Federal Confidentiality of Alcohol and Drug Abuse Patient Records regulations: The Federal rules restrict any use of the information to criminally investigate or prosecute any alcohol or drug abuse patient.[facility] ColumbusIn the event this information is protected by the Federal Confidentiality of Alcohol and Drug Abuse Patient Records regulations: The Federal rules restrict any use of the information to criminally investigate or prosecute any alcohol or drug abuse patient.[facility] ColumbusIn the event this information is protected by the Federal Confidentiality of Alcohol and Drug Abuse Patient Records regulations: The Federal rules restrict any use of the information to criminally investigate or prosecute any alcohol or drug abuse patient.[facility] ColumbusIn the event this information is protected by the Federal Confidentiality of Alcohol and Drug Abuse Patient Records regulations: The Federal rules restrict any use of the information to criminally investigate or prosecute any alcohol or drug abuse patient.[facility] ColumbusIn the event this information is protected by the Federal Confidentiality of Alcohol and Drug Abuse Patient Records regulations: The Federal rules restrict any use of the information to criminally investigate or prosecute any alcohol or drug abuse patient.[facility] the event this information is protected by the Federal Confidentiality of Alcohol and Drug Abuse Patient Records regulations: The Federal rules restrict any use of the information to criminally investigate or prosecute any alcohol or drug abuse patient.[facility] ColumbusIn the event this information is protected by the Federal Confidentiality of Alcohol and Drug Abuse Patient Records regulations: The Federal rules restrict any use of the information to criminally investigate or prosecute any alcohol or drug abuse patient.[facility] ColumbusIn the event this information is protected by [...] or prosecute any alcohol or drug abuse patient.[facility] ColumbusIn the event this information is protected by the Federal Confidentiality of Alcohol and Drug Abuse Patient Records regulations: The Federal rules restrict any use of the information to criminally investigate or prosecute any alcohol or drug abuse patient.[facility] ColumbusIn the event this information is protected by the Federal Confidentiality of Alcohol and Drug Abuse Patient Records regulations: The Federal rules restrict any use of the information to criminally investigate or prosecute any alcohol or drug abuse patient.[facility] ColumbusIn the event this information is protected by the Federal Confidentiality of Alcohol and Drug Abuse Patient Records regulations: The Federal rules restrict any use of the information to criminally investigate or prosecute any alcohol or drug abuse patient.[facility] ColumbusIn the event this information is protected by the Federal Confidentiality of Alcohol and Drug Abuse Patient Records regulations: The Federal rules restrict any use of the information to criminally investigate or prosecute any alcohol or drug abuse patient.[facility] ColumbusIn the event this information is protected by the Federal Confidentiality of Alcohol and Drug Abuse Patient Records regulations: The Federal rules restrict any use of the information to criminally investigate or prosecute any alcohol or drug abuse patient.[facility] ColumbusIn the event this information is protected by the Federal Confidentiality of Alcohol and Drug Abuse Patient Records regulations: The Federal rules restrict any use of the information to criminally investigate or prosecute any alcohol or drug abuse patient.[facility] ColumbusIn the event this information is protected by the Federal Confidentiality of Alcohol and Drug Abuse Patient Records regulations: The Federal rules restrict any use of the information to criminally investigate or prosecute any alcohol or drug abuse patient.[facility] ColumbusIn the event this information is protected by the Federal Confidentiality of Alcohol and Drug Abuse Patient Records regulations: The Federal rules restrict any use of the information to criminally investigate or prosecute any alcohol or drug abuse patient.[facility] Reason for Visit (unrecogniz ed section and content) Reason Comments Medication Request Reason Comments No Show Specialty Diagnoses / Procedures Referred By Contac t Referred To Contact Pain Management / PAIN MANAGEMENT Diagnoses follow up from injection Procedures OFFICE/OUTPATIENT [facility] 30-39 MIN VIDEO SPEC EST Denice Gr, SARAI.[facility] [address] [place] [address] Denice Gr, SARAI.[facility] [address] [place] [address] Referral ID Status Reason Start Date Expiration Date Visits Re quested Visits Authorized [id number] Closed 06/20/2021 06/19/2022 1 1 Reason Comments [...] C (HCC) Procedures CONSULT TO HEPATOLOGY OFFICE/OUTPATIENT [facility] 60-74 MINUTES Jaimee Palomares PA-C [address] [place] [address] Referral ID Status Reason Start Date Expiration Date V isits Requested Visits Authorized [id number] Closed PCP Requested Referral 11/16/2021 11/16/2022 1 [...] Procedures CONSULT TO UROLOGY OFFICE/OUTPATIENT [facility] 60-74 MINUTES Denice Gr APRN.SEWING MACHINE OPERATOR [address] [place] [address] Referral ID Status Reason Start Date Expiration Date V isits Requested Visits Authorized [id number] Closed PCP Requested Referral 12/09/2021 12/09/2022 1 [...] remission Procedures CONSULT TO NEUROLOGY OFFICE/OUTPATIENT [facility] 60-74 MINUTES Jaimee Palomares PA-C [address] [place] [address] Referral ID Status Reason Start Date Expiration Date V isits Requested Visits Authorized [id number] Closed PCP Requested Referral 02/25/2022 02/25/2023 1 1 Reason Comments Results Reason Comments Hospital Follow Up [facility] 05/06/22 Syn cope, Hypotension Reason Comments [...] CONSULT TO PHYSICAL THERAPY Shira Kam M, CLINICAL ASSOCIATE.SEWING MACHINE OPERATOR [address] [place] [address] Pt [facility] [address] [facility] [place] [address] Referral ID Status Reason Start Date Expiration Date Visits Re quested Visits Authorized [id number] Closed 06/16/2022 06/19/2022 1 1 Reason Onset [...] MINUTES Jenifer Yeager APRN.CN [address] [place] [address] Referral ID Status Reason Start Date Expiration Date V isits Requested Visits Authorized [id number] Closed PCP Requested Referral 10/20/2022 10/20/2023 1 1 Reason Comments PT Eval Specialty Diagnoses / Procedures Referred By Contac t Referred To Contact PHYSICAL THERAPY Diagnoses Primary osteoarthritis of right hip Lumbar radiculopathy Procedures CONSULT TO PHYSICAL THERAPY Ibeth Albert PA-C [address] [place] [address] [place] [address] Referral ID Status Reason Start Date Expiration Date V isits Requested Visits Authorized [id number] Authorized 02/09/2023 06/10/2023 20 20 Reason Onset Date Comments Refill Request 02/28/2023 Reason Comments Physical Therapy Specialty Diagnoses / Procedures Referred By Contac t Referred To Contact PHYSICAL THERAPY Diagnoses Primary osteoarthritis of right hip Lumbar radiculopathy Procedures CONSULT TO PHYSICAL THERAPY Ibeth Albert PA-C [address] [place] [address] Pt [facility] [place] [address] Reason Comments Radiology US Specialty Diagnoses / Procedures Referred By Contac t Referred To Contact [facility] IMAGING Diagnoses Breast pain Procedures US BREAST LTD RT US BREAST UNI REAL TIME WITH IMAGE LIMITED Memo Huber MD [address] [place] [address] [facility] [address] [place] [address] Referral ID Status Reason Start Date Expiration Date V isits Requested Visits Authorized [id number] Closed Auto-Generate d Referral 07/29/2022 08/28/2023 1 1 Specialty Diagnoses / Procedures Referred By Contac t Referred To Contact MR IMAGING Diagnoses Transient cerebral ischemia, unspecified type Balance problem Falls frequently Procedures MRI BRAIN WO IVCON MRI BRAIN BRAIN STEM W/O CONTRAST MATERIAL Urvashi Hughes, CLINICAL ASSOCIATE.SEWING MACHINE OPERATOR [address] [place] [address] [place] [address] Referral ID Status Reason Start Date Expiration Date V isits Requested Visits Authorized [id number] Closed Auto-Generate d Referral 01/12/2023 03/13/2023 1 1 Reason Comments ER F/U Numbness and tinglin g in Bilateral hands Care Teams (unrecognized sec tion and content) Legal Administrative Assistant Relationship Specialty Start Date End Date Jaimee Palomares PA-C [address] [place] [address] PCP - General Family Practice 09/09/16 Legal Administrative Assistant Relationship Specialty Start Date End Date Jaimee Palomares PA-C [address] [place] [address] PCP - General Family Practice 09/09/16 Legal Administrative Assistant Relationship Specialty Start Date End Date Jaimee Palomares PA-C [address] [place] [address] PCP - General Family Practice 09/09/16 Legal Administrative Assistant Relationship Specialty Start Date End Date Jaimee Palomares PA-C [address] [place] [address] PCP - General Family Practice 09/09/16 Legal Administrative Assistant Relationship Specialty Start Date End Date Jaimee Palomares PA-C [address] [place] [address] PCP - General Family Practice 09/09/16 Legal Administrative Assistant Relationship Specialty Start Date End Date Jaimee Palomares PA-C [address] [facility] [address] PCP - General Family Practice 09/09/16 Legal Administrative Assistant Relationship Specialty Start Date End Date Jaimee Palomares PA-C [address] [place] [address] PCP - General Family Practice 09/09/16 Legal Administrative Assistant Relationship Specialty Start Date End Date Jaimee Palomares PA-C [address] [facility] [address] PCP - General Family Practice 09/09/16 Legal Administrative Assistant Relationship Specialty Start Date End Date Jaimee Palomares PA-C [address] [facility] [address] PCP - General Family Practice 09/09/16 Legal Administrative Assistant Relationship Specialty Start Date End Date Jaimee Palomares PA-C [address] [facility] [address] PCP - General Family Practice 09/09/16 Legal Administrative Assistant Relationship Specialty Start Date End Date Jaimee Palomares PA-C [address] [facility] [place] [address] PCP - General Family Practice 09/09/16 Legal Administrative Assistant Relationship Specialty Start Date End Date Jaimee Palomares PA-C [address] [facility] [address] PCP - General Family Practice 09/09/16 Legal Administrative Assistant Relationship Specialty Start Date End Date Jaimee Palomares PA-C [address] [facility] [address] PCP - General Family Practice 09/09/16 Legal Administrative Assistant Relationship Specialty Start Date End Date Jaimee Palomares PA-C [address] [facility] [address] PCP - General Family Practice 09/09/16 Legal Administrative Assistant Relationship Specialty Start Date End Date Jaimee Palomares PA-C [address] [facility] [address] PCP - General Family Practice 09/09/16 Legal Administrative Assistant Relationship Specialty Start Date End Date Jaimee Palomares PA-C [address] [facility] [place] [address] PCP - General Family Practice 09/09/16 Legal Administrative Assistant Relationship Specialty Start Date End Date Jaimee Palomares PA-C [address] [facility] [place] [address] PCP - General Family Practice 09/09/16 Legal Administrative Assistant Relationship Specialty Start Date End Date Jaimee Palomares PA-C [address] [facility] [address] PCP - General Family Practice 09/09/16 Legal Administrative Assistant Relationship Specialty Start Date End Date Jaimee Palomares PA-C [address] [facility] [place] [address] PCP - General Family Practice 09/09/16 Legal Administrative Assistant Relationship Specialty Start Date End Date Jaimee Palomares PA-C [address] [facility] [place] [address] PCP - General Family Practice 09/09/16 Legal Administrative Assistant Relationship Specialty Start Date End Date Jaimee Palomares PA-C [address] [facility] [place] [address] PCP - General Family Practice 09/09/16 Legal Administrative Assistant Relationship Specialty Start Date End Date Jaimee Palomares PA-C [address] [facility] [address] PCP - General Family Practice 09/09/16 Legal Administrative Assistant Relationship Specialty Start Date End Date Jaimee Palomares PA-C [address] [facility] [place] [address] PCP - General Family Practice 09/09/16 Legal Administrative Assistant Relationship Specialty Start Date End Date Jaimee Palomares PA-C [address] [facility] [place] [address] PCP - General Family Practice 09/09/16 Legal Administrative Assistant Relationship Specialty Start Date End Date Jaimee Palomares PA-C [address] [facility] [place] [address] PCP - General Family Practice 09/09/16 Legal Administrative Assistant Relationship Specialty Start Date End Date Jaimee Palomares PA-C [address] [facility] [address] PCP - General Family Practice 09/09/16 Legal Administrative Assistant Relationship Specialty Start Date End Date Jaimee Palomares PA-C [address] [facility] [address] PCP - General Family Practice 09/09/16 Legal Administrative Assistant Relationship Specialty Start Date End Date Jaimee Palomares PA-C [address] [facility] [place] [address] PCP - General Family Practice 09/09/16 Legal Administrative Assistant Relationship Specialty Start Date End Date Jaimee Palomares PA-C [address] [facility] [address] PCP - General Family Practice 09/09/16 Legal Administrative Assistant Relationship Specialty Start Date End Date Jaimee Palomares PA-C [address] [facility] [place] [address] PCP - General Family Practice 09/09/16 Legal Administrative Assistant Relationship Specialty Start Date End Date Jaimee Palomares PA-C [address] [facility] [place] [address] PCP - General Family Practice 09/09/16 Legal Administrative Assistant Relationship Specialty Start Date End Date Jaimee Palomares PA-C [address] [facility] [place] [address] PCP - General Family Practice 09/09/16 Legal Administrative Assistant Relationship Specialty Start Date End Date Jaimee Palomares PA-C [address] [facility] [address] PCP - General Family Practice 09/09/16 Legal Administrative Assistant Relationship Specialty Start Date End Date Jaimee Palomares PA-C [address] [facility] [address] PCP - General Family Practice 09/09/16 Legal Administrative Assistant Relationship Specialty Start Date End Date Jaimee Palomares PA-C [address] [facility] [address] PCP - General Family Practice 09/09/16 Legal Administrative Assistant Relationship Specialty Start Date End Date Jaimee Palomares PA-C [address] [facility] [place] [address] PCP - General Family Medicine 09/09/16 Legal Administrative Assistant Relationship Specialty Start Date End Date Jaimee Palomares PA-C [address] [facility] [place] [address] PCP - General Family Medicine 09/09/16 Legal Administrative Assistant Relationship Specialty Start Date End Date Jaimee Palomares PA-C [address] [facility] [place] [address] PCP - General Family Medicine 09/09/16 Legal Administrative Assistant Relationship Specialty Start Date End Date Jaimee Palomares PA-C [address] [facility] [place] [address] PCP - General Family Medicine 09/09/16 Legal Administrative Assistant Relationship Specialty Start Date End Date Jaimee Palomares PA-C [address] [facility] [place] [address] PCP - General Family Medicine 09/09/16 Legal Administrative Assistant Relationship Specialty Start Date End Date Jaimee Palomares PA-C [address] [place] [address] PCP - General Family Medicine 09/09/16 Legal Administrative Assistant Relationship Specialty Start Date End Date Jaimee Palomares PA-C [address] [place] [address] PCP - General Family Medicine 09/09/16 Legal Administrative Assistant Relationship Specialty Start Date End Date Jaimee Palomares PA-C [address] [facility] [address] PCP - General Family Medicine 09/09/16 Legal Administrative Assistant Relationship Specialty Start Date End Date Jaimee Palomares PA-C [address] [facility] [place] [address] PCP - General Family Medicine 09/09/16 Legal Administrative Assistant Relationship Specialty Start Date End Date Jaimee Palomares PA-C [id number] [facility] [place] [address] PCP - General Family Medicine 09/09/16 Legal Administrative Assistant Relationship Specialty Start Date End Date Jaimee Palomares PA-C [address] [place] [address] PCP - General Family Medicine 09/09/16 Legal Administrative Assistant Relationship Specialty Start Date End Date Jaimee Palomares PA-C [address] [place] [address] PCP - General Family Medicine 09/09/16 Legal Administrative Assistant Relationship Specialty Start Date End Date Jaimee Palomares PA-C [address] [facility] [place] [address] PCP - General Family Medicine 09/09/16 Legal Administrative Assistant Relationship Specialty Start Date End Date Jaimee Palomares PA-C [address] [facility] [place] [address] PCP - General Family Medicine 09/09/16 Legal Administrative Assistant Relationship Specialty Start Date End Date Jaimee Palomares PA-C 174 [facility] [place] [address] PCP - General Family Medicine 09/09/16 Legal Administrative Assistant Relationship Specialty Start Date End Date Jaimee Palomares PA-C 174 [facility] [place] [address] PCP - General Family Medicine 09/09/16 Legal Administrative Assistant Relationship Specialty Start Date End Date Jaimee Palomares PA-C 174 [facility] [place] [address] PCP - General Family Medicine 09/09/16 Legal Administrative Assistant Relationship Specialty Start Date End Date Jaimee Palomares PA-C 137 [facility] [place] [address] PCP - General Family Medicine 09/09/16 Legal Administrative Assistant Relationship Specialty Start Date End Date Jaimee Palomares PA-C 673 [facility] [place] [address] PCP - General Family Medicine 09/09/16 Legal Administrative Assistant Relationship Specialty Start Date End Date Jaimee Palomares PA-C [id number] [facility] [place] [address] PCP - General Family Medicine 09/09/16 Legal Administrative Assistant Relationship Specialty Start Date End Date Jaimee Palomares PA-C [address] [facility] [place] [address] PCP - General Family Medicine 09/09/16 Legal Administrative Assistant Relationship Specialty Start Date End Date Jaimee Palomares PA-C [address] [facility] [place] [address] PCP - General Family Medicine 09/09/16 Legal Administrative Assistant Relationship Specialty Start Date End Date Jaimee Palomares PA-C [address] [facility] [place] [address] PCP - General Family Medicine 09/09/16 Legal Administrative Assistant Relationship Specialty Start Date End Date Jaimee Palomares PA-C [address] [facility] [place] [address] PCP - General Family Medicine 09/09/16 Legal Administrative Assistant Relationship Specialty Start Date End Date Jaieme Palomares PA-C 174 [facility] [place] [place] [address] PCP - General Family Medicine 09/09/16 Legal Administrative Assistant Relationship Specialty Start Date End Date Jaimee Palomares PA-C [address] [facility] [place] [place] [address] PCP - General Family Medicine 09/09/16 Legal Administrative Assistant Relationship Specialty Start Date End Date Jaimee Palomares PA-C 174 [facility] [place] [address] PCP - General Family Medicine 09/09/16 Legal Administrative Assistant Relationship Specialty Start Date End Date Jaimee Palomares PA-C [address] [facility] [place] [address] PCP - General Family Medicine 09/09/16 Legal Administrative Assistant Relationship Specialty Start Date End Date Jaimee Palomares PA-C [address] [facility] [place] [place] [address] PCP - General Family Medicine 09/09/16 Legal Administrative Assistant Relationship Specialty Start Date End Date Jaimee Palomares PA-C [address] [facility] [place] [place] [address] PCP - General Family Medicine 09/09/16 Legal Administrative Assistant Relationship Specialty Start Date End Date Jaimee Palomares PA-C [address] [place] [address] PCP - General Family Medicine 09/09/16 Legal Administrative Assistant Relationship Specialty Start Date End Date Jaimee Palomares PA-C [address] [place] [address] PCP - General Family Medicine 09/09/16 Legal Administrative Assistant Relationship Specialty Start Date End Date Jaimee Palomares PA-C [address] [place] [address] PCP - General Family Medicine 09/09/16 Legal Administrative Assistant Relationship Specialty Start Date End Date Jaimee Palomares PA-C [address] [place] [address] PCP - General Family Medicine 09/09/16 Legal Administrative Assistant Relationship Specialty Start Date End Date Jaimee Palomares PA-C [address] [place] [address] PCP - General Family Medicine 09/09/16 Legal Administrative Assistant Relationship Specialty Start Date End Date Jaimee Palomares PA-C [address] [place] [address] PCP - General Family Medicine 09/09/16 Legal Administrative Assistant Relationship Specialty Start Date End Date Jaimee Palomares PA-C [address] [place] [address] PCP - General Family Medicine 09/09/16 Legal Administrative Assistant Relationship Specialty Start Date End Date Jaimee Palomares PA-C [address] [facility] [place] [place] [address] PCP - General Family Medicine 09/09/16 Legal Administrative Assistant Relationship Specialty Start Date End Date Jaimee Palomares PA-C [address] [facility] [place] [address] PCP - General Family Medicine 09/09/16 Legal Administrative Assistant Relationship Specialty Start Date End Date Jaimee Palomares PA-C [address] [facility] [place] [address] PCP - General Family Medicine 09/09/16 Legal Administrative Assistant Relationship Specialty Start Date End Date Jaimee Palomares PA-C [address] [facility] [place] [place] [address] PCP - General Family Medicine 09/09/16 Legal Administrative Assistant Relationship Specialty Start Date End Date Jaimee Palomares PA-C [address] [facility] [place] [address] PCP - General Family Medicine 09/09/16 Legal Administrative Assistant Relationship Specialty Start Date End Date Jaimee Palomares PA-C [address] [facility] [place] [address] PCP - General Family Medicine 09/09/16 Legal Administrative Assistant Relationship Specialty Start Date End Date Jaimee Palomares PA-C [address] [facility] [place] [address] PCP - General Family Medicine 09/09/16 PRN [...] BE BASED ON THE PRIMARY CLINICAL RECORDS. [facility]. provides no warranty or guarantee of the accuracy or completeness of information in this document.
--- NOTE | 2023-06-25 16:47 | NURSING ---
MED SURG OBS BRUCE WEAKNESS, FAILURE TO THRIVE
--- NOTE | 2023-06-25 16:53 | HP.PCM.HOS_ITS ---
[facility] - General General Date of Admission: 06/25/23 Date of Service: 06/25/23 Chief Complaint: Weakness HPI Narrative KAMI JARQUIN, is a 53 y/o F history of chronic back and neck pain, hypothyroidism, depression, hypertension, GERD, COPD who presented to [facility] 06/25/2023 due to inability to care for self. Pt was here initially end of for neck pain and arm weakness and found to have cord compression in the cervical area and underwent C3-5 anterior cervical discectomy and fusion with Dr. Chance on 05/18 with partial improvement in symptoms and was discharged to SNF. About a week later she was discharged home and initially did well however progressively felt like she was getting weaker at home. She did continue to have some tingling in her fingers and felt her dexterity was worsening so she Re-presented 06/16/2023 to the ED and readmitted. CT spine on admission showed postsurgical changes C3-C5 with slight increase separation of hardware from vertebral body at C3 level with mild prevertebral e christianne C4-6 slightly increased compared to prior x-rays and Ortho was consulted and conservative management was recommended with pain control and rehab. Patient somewhat improved and wanted to go home with home health so she was discharged home 06/21/2023 with plans to follow-up with Dr. Skinner 2 weeks after discharge however patient Re-presented today 06/25/2023 with continued complaints of generalized weakness and neck pain and stated she was unable to care for herself prompting her to come back to the hospital. Hospitalist contacted for admission due to her continued complaints and failure to thrive. Evaluated at bedside, patient reports she is weak all over, arms more than legs and left side more than right side. She reports these are the same symptoms as previous however have worsened and she is having a hard time with ADLs and walking and requires substantial assistance. Patient reports continued tingling in her hands with no sensory changes in lower extremities, reports she is able to go to the bathroom but feels like it sometimes takes her a while to urinate or have a bowel movement and also takes her a while to get to the bathroom. Today has a little bit of headache. Denies any falls but reports a couple days ago she was startled and snapped her head up and felt a sharp pain but said her decline started prior to that. Patient also reported when palpating around her abdomen that she had difficulty feeling that however was able to feel below that above that. Did not have any other specific complaints. Of note patient denied any alcohol or substance use, smoking 4 to 5 cigarettes a day and would like nicotine patch [facility] Medical History Acute cholecystitis Acute hyponatremia Acute pancreatitis Alcohol abuse Alcohol withdrawal Ambulates with cane Anemia Anemia of unknown etiology Anxiety Arthritis Bipolar disorder Chronic pain COPD (chronic obstructive pulmonary disease) Depression Desire for detoxification Distal radius fracture, right Easy bruising Elevated LFTs Excessive bleeding Gastric reflux High cholesterol History of edema Hyperglycemia Hypertension Hypothyroidism Marijuana use Migraines On home oxygen therapy Osteoporosis Pulmonary embolism Pulmonary embolism Recurrent syncope Renal insufficiency Restless legs Shortness of breath on exertion Sleep apnea Smoker Transient hypotension Walker as ambulation aid Wears glasses Home Medications bupropion HCl 150 mg tablet,12 hr sustained-release (Wellbutrin SR) 300 mg PO DAILY depression 04/30/21 [History Last Taken 06/16/23] ferrous sulfate 325 mg (65 mg iron) tablet 325 mg PO BID supplement 04/30/21 [History Last Taken 06/16/23] levothyroxine 25 mcg tablet 25 mcg PO DAILY hypothyroid 04/30/21 [History Last Taken 06/16/23] tiotropium bromide 2.5 mcg/actuation mist for inhalation (Spiriva Respimat) 2 puff inhalation DAILY COPD 04/30/21 [History Last Taken 06/16/23] albuterol sulfate 2.5 mg/3 mL (0.083 %) solution for nebulization 2.5 mg inhalation Q6H PRN PRN Shortness Of Breath Or Wheezing 10/12/21 [History Last Taken 06/16/23] albuterol sulfate 90 mcg/actuation aerosol inhaler (Ventolin HFA) 1 puff inhalation Q4H PRN PRN Shortness Of Breath Or Wheezing 10/12/21 [History Last Taken 05/14/23 10:00 1 puff] cholecalciferol (vitamin D3) 25 mcg (1,000 unit) capsule (Vitamin D3) 25 mcg PO DAILY vitamin 10/12/21 [History Last Taken 06/16/23] atorvastatin 40 mg tablet 40 mg PO QHS cholesterol 02/03/22 [History Last Taken 06/16/23] omeprazole 20 mg capsule,delayed release 20 mg PO DAILY reflux 03/25/22 [History Last Taken 06/16/23] thiamine HCl (vitamin B1) 50 mg tablet 50 mg PO DAILY vitamin 03/25/22 [History Last Taken 06/16/23] baclofen 10 mg tablet 5 mg (1/2 x 10 mg) PO BID pain #30 tabs 05/06/22 [Rx Last Taken 06/16/23] cyanocobalamin (vitamin B-12) 1,000 mcg tablet (Vitamin B-12) 1,000 mcg PO DAILY supplement 07/27/22 [History Last Taken 06/16/23] mirabegron 25 mg tablet,extended release 24 hr (Myrbetriq) 25 mg PO DAILY OVERACTIVE BLADDER 07/27/22 [History Last Taken 06/16/23] olanzapine 10 mg tablet 10 mg PO DAILY MOOD 10/28/22 [History Last Taken 06/16/23] oxybutynin chloride 10 mg tablet,extended release 24 hr 10 mg PO DAILY OVERACTIVE BLADDER 10/28/22 [History Last Taken 06/16/23] trazodone 150 mg tablet 150 mg PO QHS SLEEP 10/28/22 [History Last Taken 06/16/23] amlodipine 10 mg tablet 10 mg PO DAILY bp #30 tabs 12/29/22 [Rx Last Taken 06/16/23] metoprolol succinate 50 mg tablet,extended release 24 hr 50 mg PO DAILY bp 05/15/23 [History Last Taken 06/16/23] budesonide 0.5 mg/2 mL suspension for nebulization 0.5 mg (2 mL) inhalation Q12H.RT #0 mL 05/23/23 [Rx Last Taken 06/16/23] famotidine 20 mg tablet 20 mg PO QHS #0 tabs 05/23/23 [Rx Last Taken 06/16/23] nut.tx.comp. immune systm,reg 0.08 gram-1.4 kcal/mL oral liquid (Ensure Surgery) 237 ml PO TIDCM #0 mL 05/23/23 [Rx Last Taken 06/08/23] oxycodone 5 mg tablet 5 mg PO Q4H PRN PRN Pain Score 6-10 3 days #14 tabs 05/23/23 [Rx Last Taken Unknown] pregabalin 150 mg capsule (Lyrica) 150 mg PO TID pain 3 days #9 caps 05/23/23 [Rx Last Taken 06/16/23] acetaminophen 500 mg tablet 1,000 mg (2 x 500 mg) PO Q8 #0 tabs 06/21/23 [Rx Last Taken Unknown] bisacodyl 10 mg rectal suppository 10 mg RI DAILY #0 ea 06/21/23 [Rx Last Taken Unknown] meloxicam 15 mg tablet 7.5 mg (1/2 x 15 mg) PO DAILY 30 days #15 tabs 06/21/23 [Rx Last Taken Unknown] polyethylene glycol 3350 17 gram oral powder packet 17 g PO BID #0 ea 06/21/23 [Rx Last Taken Unknown] sennosides 8.6 mg-docusate sodium 50 mg tablet (Stool Softener-Stimulant Laxative) 2 tab PO BID #0 tabs 06/21/23 [Rx Last Taken Unknown] Allergy/AdvReac Type Severity Reaction Status Date / Time fentanyl Allergy Anaphylaxis Verified 06/25/23 13:07 varenicline [From Chantix] AdvReac hallucinati Verified 06/25/23 13:07 ons Family History Other Cancer Surgical History H/O skin graft H/O: hysterectomy Hx of cholecystectomy Hx of tonsillectomy Social History household members: none Smoking Status: Light Smoker (<10/day) alcohol intake: former substance use type: marijuana additional social history: disabled ROS ROS Narrative General: Denies fever/chills HENT: Headache right now, denies stuffy nose, denies sore throat EYES: Denies changes in vision Resp: Chronic shortness of breath due to her COPD Cardiac: Denies chest pain GI: Denies abdominal pain, sometimes takes well to start urination and bowel movements, denies nausea/vomiting : Feels she is urinating okay but sometimes can take a period of time to start Extremity: Denies swelling MSK: Weakness arms greater than legs and left greater than right Neuro: Reports some tingling in hands and arms and possibly abdomen Heme: Denies any bleeding or bruising Skin: Denies rashes Psychiatric: No complaints voiced Vital Signs Vital Signs Vital Signs: 06/25/23 13:07 06/25/23 13:12 Temperature 97.9 F Temperature Source Oral Pulse Rate 78 Respiratory Rate 18 Respiratory Effort Normal Non-Labored Respiratory Pattern Normal Blood Pressure 94/70 Blood Pressure Mean 78 Pulse Ox 93 Oxygen Delivery Method Room Air Physical Exam Narrative General: Alert, oriented, appears disheveled HEENT: Atraumatic, normocephalic Eyes: Anicteric, normal conjunctiva, extraocular movements intact, pupils equal Neck: Supple Respiratory: Clear to auscultation bilaterally, normal respiratory effort Cardiovascular: Regular rate GI: Soft, nontender, nondistended, reports difficulty feeling her abdomen palpated diffusely Extremities: No edema Musculoskeletal: Able to lift right arm and leg up off bed independent of help but would not lift left leg off bed, would also not complaint coordinator or move left arm but was able to shrug both shoulders without difficulty, Neuro: No clonus in lower extremities, fill decree sensation on abdomen but not above or below, reports tingling in hands Skin: No rashes appreciated Psych: Cooperative Results Lab / Micro Data 06/25/23 13:19 06/25/23 13:19 Labs: Laboratory Results - last 24 hr 06/25/23 13:19: WBC 8.9, RBC 4.42, Hgb 12.8, Hct 39.0, MCV 88.2, MCH 29.0, MCHC 32.8, RDW Std Deviation 42.8, RDW Coeff of Sandeep 13.2, Plt Count 442, MPV 10.3, Immature Gran % (Auto) 1.000 H, Neut % (Auto) 55.8, Lymph % (Auto) 26.1, [place] % (Auto) 12.2 H, Eos % (Auto) 4.0, Baso % (Auto) 0.9, Absolute Neuts (auto) 5.0, Absolute Lymphs (auto) 2.31, Nucleated RBC % 0, Sodium 137, Potassium 3.7, Chlo ride 102, Carbon Dioxide 28.0, Anion Gap 7, BUN 39 H, Creatinine 1.05 H, Est GFR (MDRD) Af Amer 70, Est GFR (MDRD) Non-Af 58 L, BUN/Creatinine Ratio 37.1 H, Glucose 121 H, Calcium 8.5 06/25/23 15:15: Urine Color Yellow, Urine Clarity Clear, Urine pH 5.0, Ur Spec ific [place] 1.025, Urine Protein 15 H, Urine Glucose (UA) Normal, Urine Ketones Negative, Urine Occult Blood Negative, Urine Nitrite Negative, Urine Bilirubin Negative, Urine Urobilinogen Normal, Ur Leukocyte Esterase 25 H, Urine RBC 0 SEEN, Urine WBC 0-5 SEEN, Ur Squamous Epith Cells 0-5 SEEN, Urine Bacteria 0 SEEN, Hyaline Casts 0-5 SEEN, Urine Mucus 0 SEEN Assessment & Plan Assessment/Plan (1) Generalized weakness: (2) History of neck surgery: (3) Hypothyroidism: QUALIFIERS: Hypothyroidism type: unspecified Qualified Code(s): E03.9 - Hypothyroidism, unspecified (4) S/P cervical spinal fusion: (5) Tobacco use: PLAN: Plan # Failure to thrive and generalized weakness with arms greater than legs and left greater than right in setting of C3-5 anterior cervical discectomy in April -Pain control, supportive care -Discussed with Ortho, will start with cervical x-ray and start patient on steroids -Ortho to evaluate tomorrow -Ultimately suspect will need PT/OT and placement #Hypothyroidism -Continue Synthroid # ERICA -Creatinine on 06/21 was 0.5, today BUN 39 with creatinine of 1.05 -Gentle IVF -Avoid NSAIDs at this time, did get a dose of ketorolac in ED, continue to monitor #Psychiatric disorder NOS -Continue home medications #Hypertension -On amlodipine and metoprolol, BP slightly low on presentation 94/70 so hold at this time #GERD -Continue PPI #COPD -Continue home inhalers #Tobacco use -Advise cessation -Patient agreeable to nicotine replacement #DVT ppx: SCDs Virginia Araujo MD Time spent in the patient's overall evaluation,decision-making process, review of diagnostic data, adjustment of management, discussion with other providers, nursing nursing and ancillary staff involved in patient's care documentation, 55 minutes Charges/Coding Visit Charges Inpatient E&M: 29807 Init Hosp L2
[2023-06-25 17:14] VITALS: BP 122/70; PULSE 81; O2SAT 98
[2023-06-25 17:46] VITALS: BP 85/56; PULSE 73; RESP 16; TEMP 36.6; O2SAT 99
--- OUTSIDE RECORDS SUMMARY | 2023-06-25 17:51 | XMS RPT_ITS | CCD ---
Author Name Unknown Address [address] [place] [address] Organization [facility] Care Team Providers Care Perishable Fruit Inspector Name Role Phone MATTHEW ULLOA Admitting Unavailable [...] [FENTANYL] Drug Allergy 6 Other: See Comments [facility] Repository (20 sources) varenicline; Translations: [VARENICLINE] Drug Allergy 7 Intolerance [facility] Repository (1 source) varenicline Drug Allergy [facility] Repository Medications Current Medications Medication Drug [...] Drug Class(es) Dates Sig (Normalized) Sig (Original) [id number] 200 actuat albuterol 0.09 mg/actuat metered dose [...] aftercare (3 sources) Polypharmacy ; Translations: [Other senior living (current) drug therapy] Episodic Other aftercare (1 [...] 10-21-2021 Episodic Other aftercare (1 source) Other senior living (current) drug therapy; Translations: [Polypharmacy] Onset: 08-26-2022 [...] 70 mm[Hg] Flo Martino MD Work Phone: [facility] 05-10-2023 11:11-0500 Heart rate 67 /min Flo Martino MD Work Phone: [facility] 05-10-2023 11:11-0500 Respiratory rate 20 /min Flo Martino MD Work Phone: [facility] 05-10-2023 11:11-0500 SaO2% (BldA) [Mass fraction] 99 % Flo Martino MD Work Phone: [facility] 05-10-2023 11:11-0500 Systolic blood pressure 118 mm[Hg] Flo Martino MD Work Phone: [facility] 02-14-2023 10:24-0400 Body height 165.1 cm Carmelita Ragsdale MD Work Phone: [facility] 02-14-2023 10:24-0400 Body weight 70.31 kg Carmelita Ragsdale MD Work Phone: [facility] 12-16-2022 11:20-0400 Body weight 64.05 kg Urvashi Dahlhausen PAPER PATTERN FOLDER.[employer] Work Phone: [facility] 12-16-2022 11:20-0400 Diastolic blood pressure 100 mm[Hg] Urvashi Dahlhausen PAPER PATTERN FOLDER.[employer] Work Phone: [facility] 12-16-2022 11:20-0400 Heart rate 106 /min Urvashi Dahlhausen PAPER PATTERN FOLDER.[employer] Work Phone: [facility] 12-16-2022 11:20-0400 Respiratory rate 20 /min Urvashi Dahlhausen PAPER PATTERN FOLDER.[employer] Work Phone: [facility] 12-16-2022 11:20-0400 SaO2% (BldA) [Mass fraction] 98 % Urvashi Dahlhausen PAPER PATTERN FOLDER.[employer] Work Phone: [facility] 12-16-2022 11:20-0400 Systolic blood pressure 168 mm[Hg] Urvashi Dahlhausen PAPER PATTERN FOLDER.[employer] Work Phone: [facility] 12-09-2022 15:17-0400 Body weight 71.67 kg NA Palomares PA-C Work Phone: [facility] 12-09-2022 15:17-0400 Diastolic blood pressure 80 mm[Hg] NA Palomares PA-C Work Phone: [facility] 12-09-2022 15:17-0400 Heart rate 72 /min NA Palomares PA-C Work Phone: [facility] 12-09-2022 15:17-0400 Respiratory rate 18 /min NA Palomares PA-C Work Phone: [facility] 12-09-2022 15:17-0400 SaO2% (BldA) [Mass fraction] 96 % NA Palomares PA-C Work Phone: [facility] 12-09-2022 15:17-0400 Systolic blood pressure 128 mm[Hg] NA Palomares PA-C Work Phone: [facility] 10-20-2022 11:10-0400 Body weight 61.24 kg Jenifer Toy MOON.CNM Work Phone: [facility] 10-20-2022 11:10-0400 Diastolic blood pressure 84 mm[Hg] Jenifer Toy PAPER PATTERN FOLDER.CNM Work Phone: [facility] 10-20-2022 11:10-0400 Systolic blood pressure 144 mm[Hg] Jenifer Toy PAPER PATTERN FOLDER.CNM Work Phone: [facility] 10-14-2022 13:24-0400 Heart rate 75 /min Deloris Troy MD Work Phone: [facility] 10-14-2022 13:24-0400 Respiratory rate 16 /min Deloris Troy MD Work Phone: [facility] 10-14-2022 13:24-0400 SaO2% (BldA) [Mass fraction] 97 % Delrois Troy MD Work Phone: [facility] 09-16-2022 14:05-0400 Body weight 59.42 kg NA Palomares PA-C Work Phone: [facility] 09-16-2022 14:05-0400 Diastolic blood pressure 88 mm[Hg] NA Palomares PA-C Work Phone: [facility] 09-16-2022 14:05-0400 Heart rate 92 /min NA Palomares PA-C Work Phone: [facility] 09-16-2022 14:05-0400 Respiratory rate 18 /min NA Palomares PA-C Work Phone: [facility] 09-16-2022 14:05-0400 SaO2% (BldA) [Mass fraction] 99 % NA Palomares PA-C Work Phone: [facility] 09-16-2022 14:05-0400 Systolic blood pressure 170 mm[Hg] NA Palomares PA-C Work Phone: [facility] 08-26-2022 10:03-0500 Body temperature 97.81 [degF] Urvashi Dahlhausen PAPER PATTERN FOLDER.[employer] Work Phone: [facility] 08-26-2022 10:03-0500 Body weight 61.24 kg Urvashi Dahlhausen PAPER PATTERN FOLDER.[employer] Work Phone: [facility] 08-26-2022 10:03-0500 Diastolic blood pressure 96 mm[Hg] Urvashi Dahlhausen PAPER PATTERN FOLDER.[employer] Work Phone: [facility] 08-26-2022 10:03-0500 Heart rate 74 /min Urvashi Dahlhausen PAPER PATTERN FOLDER.[employer] Work Phone: [facility] 08-26-2022 10:03-0500 Respiratory rate 18 /min Urvashi Dahlhausen PAPER PATTERN FOLDER.[employer] Work Phone: [facility] 08-26-2022 10:03-0500 SaO2% (BldA) [Mass fraction] 97 % Urvashi Dahlhausen PAPER PATTERN FOLDER.[employer] Work Phone: [facility] 08-26-2022 10:03-0500 Systolic blood pressure 129 mm[Hg] Urvashi Dahlhausen PAPER PATTERN FOLDER.[employer] Work Phone: [facility] 08-16-2022 10:58-0500 Body weight 64.41 kg NA Palomares PA-C Work Phone: [facility] 08-16-2022 10:58-0500 Diastolic blood pressure 80 mm[Hg] NA Palomares PA-C Work Phone: [facility] 08-16-2022 10:58-0500 Heart rate 74 /min NA Palomares PA-C Work Phone: [facility] 08-16-2022 10:58-0500 Respiratory rate 18 /min NA Palomares PA-C Work Phone: [facility] 08-16-2022 10:58-0500 SaO2% (BldA) [Mass fraction] 97 % NA Palomares PA-C Work Phone: [facility] 08-16-2022 10:58-0500 Systolic blood pressure 148 mm[Hg] NA Palomares PA-C Work Phone: [facility] 06-03-2022 11:10-0500 Heart rate 80 /min Shira Powellfield PAPER PATTERN FOLDER.[employer] Work Phone: [facility] 06-03-2022 11:10-0500 Respiratory rate 16 /min Shira Powellfield PAPER PATTERN FOLDER.[employer] Work Phone: [facility] 06-03-2022 11:10-0500 SaO2% (BldA) [Mass fraction] 95 % Shira Powellfield PAPER PATTERN FOLDER.[employer] Work Phone: [facility] 05-25-2022 14:53-0500 Body weight 67.77 kg Jenifer Yeager PAPER PATTERN FOLDER.CNM Work Phone: [facility] 05-25-2022 14:53-0500 Diastolic blood pressure 64 mm[Hg] Jenifer Yeager PAPER PATTERN FOLDER.CNM Work Phone: [facility] 05-25-2022 14:53-0500 Systolic blood pressure 112 mm[Hg] Jenifer Yeager PAPER PATTERN FOLDER.CNM Work Phone: [facility] 05-14-2022 10:53-0500 Body weight 65.77 kg NA Paolmares PA-C Work Phone: [facility] 05-14-2022 10:53-0500 Diastolic blood pressure 78 mm[Hg] NA Palomares PA-C Work Phone: [facility] 05-14-2022 10:53-0500 Heart rate 93 /min NA Palomares PA-C Work Phone: [facility] 05-14-2022 10:53-0500 SaO2% (BldA) [Mass fraction] 97 % NA Palomares PA-C Work Phone: [facility] 05-14-2022 10:53-0500 Systolic blood pressure 148 mm[Hg] NA Palomares PA-C Work Phone: [facility] 05-07-2022 14:35-0500 Body temperature 97.81 [degF] Memo Leahy Jr., MD Work Phone: [facility] 05-07-2022 14:35-0500 Body weight 68.04 kg Memo Leahy Jr., MD Work Phone: [facility] 05-07-2022 14:35-0500 Diastolic blood pressure 62 mm[Hg] Memo Leahy Jr., MD Work Phone: [facility] 05-07-2022 14:35-0500 Heart rate 80 /min Memo Leahy Jr., MD Work Phone: [facility] 05-07-2022 14:35-0500 Respiratory rate 18 /min Memo Leahy Jr., MD Work Phone: [facility] 05-07-2022 14:35-0500 SaO2% (BldA) [Mass fraction] 97 % Memo Leahy Jr., MD Work Phone: [facility] 05-07-2022 14:35-0500 Systolic blood pressure 118 mm[Hg] Memo Leahy Jr., MD Work Phone: [facility] 04-01-2022 08:34-0400 Body weight 73.48 kg NA Palomares PA-C Work Phone: [facility] 04-01-2022 08:34-0400 Diastolic blood pressure 78 mm[Hg] NA Palomares PA-C Work Phone: [facility] 04-01-2022 08:34-0400 Heart rate 69 /min NA Palomares PA-C Work Phone: [facility] 04-01-2022 08:34-0400 Respiratory rate 20 /min NA Palomares PA-C Work Phone: [facility] 04-01-2022 08:34-0400 SaO2% (BldA) [Mass fraction] 96 % NA Palomares PA-C Work Phone: [facility] 04-01-2022 08:34-0400 Systolic blood pressure 128 mm[Hg] NA Palomares PA-C Work Phone: [facility] 03-17-2022 10:57-0400 Body height 175.3 cm Sarahi Whitlock MD Work Phone: [facility] 03-17-2022 10:57-0400 Body weight 74.39 kg Sarahi Whitlock MD Work Phone: [facility] 03-17-2022 10:57-0400 Diastolic blood pressure 84 mm[Hg] Sarahi Whitlock MD Work Phone: [facility] 03-17-2022 10:57-0400 Heart rate 60 /min Sarahi Whitlock MD Work Phone: [facility] 03-17-2022 10:57-0400 Systolic blood pressure 122 mm[Hg] Sarahi Whitlock MD Work Phone: [facility] 02-25-2022 14:25-0400 Body temperature 98.6 [degF] NA Palomares PA-C Work Phone: [facility] 02-25-2022 14:25-0400 Body weight 74.39 kg NA Palomares PA-C Work Phone: [facility] 02-25-2022 14:25-0400 Diastolic blood pressure 72 mm[Hg] NA Palomares PA-C Work Phone: [facility] 02-25-2022 14:25-0400 Heart rate 90 /min NA Palomares PA-C Work Phone: [facility] 02-25-2022 14:25-0400 Respiratory rate 16 /min NA Palomares PA-C Work Phone: [facility] 02-25-2022 14:25-0400 SaO2% (BldA) [Mass fraction] 96 % NA Palomares PA-C Work Phone: [facility] 02-25-2022 14:25-0400 Systolic blood pressure 110 mm[Hg] NA Palomares PA-C Work Phone: [facility] 02-24-2022 10:45-0400 Diastolic blood pressure 61 mm[Hg] Deloris Troy MD Work Phone: [facility] 02-24-2022 10:45-0400 Systolic blood pressure 87 mm[Hg] Deloris Troy MD Work Phone: [facility] 02-24-2022 10:28-0400 Body temperature 99.19 [degF] Deloris Troy MD Work Phone: [facility] 02-24-2022 10:28-0400 Respiratory rate 16 /min Deloris Troy MD Work Phone: [facility] 02-24-2022 10:28-0400 SaO2% (BldA) [Mass fraction] 97 % Deloris Troy MD Work Phone: [facility] 02-24-2022 09:41-0400 Heart rate 98 /min Deloris Troy MD Work Phone: [facility] 02-11-2022 13:19-0400 Diastolic blood pressure 64 mm[Hg] NA Palomares PA-C Work Phone: [facility] 02-11-2022 13:19-0400 Systolic blood pressure 100 mm[Hg] NA Palomares PA-C Work Phone: [facility] 02-11-2022 10:06-0400 Body weight 75.3 kg NA Palomares PA-C Work Phone: [facility] 01-18-2022 11:10-0400 Body weight 80.29 kg Nguyen Sycamore PAPER PATTERN FOLDER.[employer] Work Phone: [facility] 01-18-2022 11:10-0400 Diastolic blood pressure 78 mm[Hg] Nguyen Tree PAPER PATTERN FOLDER.[employer] Work Phone: [facility] 01-18-2022 11:10-0400 Systolic blood pressure 112 mm[Hg] Nguyen Sycamore PAPER PATTERN FOLDER.[employer] Work Phone: [facility] 12-15-2021 08:23-0400 Diastolic blood pressure 82 mm[Hg] Blaine Ann MD Work Phone: [facility] 12-15-2021 08:23-0400 Heart rate 75 /min Blaine Ann MD Work Phone: [facility] 12-15-2021 08:23-0400 SaO2% (BldA) [Mass fraction] 96 % Blaine Ann MD Work Phone: [facility] 12-15-2021 08:23-0400 Systolic blood pressure 134 mm[Hg] Blaine Ann MD Work Phone: [facility] 12-07-2021 11:32-0400 Body height 175.3 cm Denice Gr PAPER PATTERN FOLDER.[employer] Work Phone: [facility] 12-07-2021 11:32-0400 Body weight 83.92 kg Denice Gr PAPER PATTERN FOLDER.[employer] Work Phone: [facility] 11-27-2021 15:05-0400 Diastolic blood pressure 87 mm[Hg] Josué Blevins MD Work Phone: [facility] 11-27-2021 15:05-0400 Heart rate 72 /min Josué Blevins MD Work Phone: [facility] 11-27-2021 15:05-0400 Respiratory rate 16 /min Josué Blevins MD Work Phone: [facility] 11-27-2021 15:05-0400 SaO2% (BldA) [Mass fraction] 94 % Josué Blevins MD Work Phone: [facility] 11-27-2021 15:05-0400 Systolic blood pressure 127 mm[Hg] Josué Blevins MD Work Phone: [facility] 11-27-2021 14:48-0400 Body temperature 98.01 [degF] Josué Blevins MD Work Phone: [facility] 11-27-2021 14:19-0400 Body height 175.3 cm Josué Blevins MD Work Phone: [facility] 11-27-2021 14:19-0400 Body weight 83.92 kg Josué Blevins MD Work Phone: [facility] 11-23-2021 09:17-0400 Body height 175.3 cm Josué Blevins MD Work Phone: [facility] 11-23-2021 09:17-0400 Body weight 83.92 kg Josué Blevins MD Work Phone: [facility] 11-23-2021 09:17-0400 Diastolic blood pressure 78 mm[Hg] Josué Blevins MD Work Phone: [facility] 11-23-2021 09:17-0400 Heart rate 79 /min Josué Blevins MD Work Phone: [facility] 11-23-2021 09:17-0400 Systolic blood pressure 108 mm[Hg] Josué Blevins MD Work Phone: [facility] 11-12-2021 14:13-0400 Body weight 85.73 kg NA Palomares PA-C Work Phone: [facility] 11-12-2021 14:13-0400 Diastolic blood pressure 70 mm[Hg] NA Palomares PA-C Work Phone: [facility] 11-12-2021 14:13-0400 Heart rate 74 /min NA Palomares PA-C Work Phone: [facility] 11-12-2021 14:13-0400 Respiratory rate 16 /min NA Palomares PA-C Work Phone: [facility] 11-12-2021 14:13-0400 SaO2% (BldA) [Mass fraction] 94 % NA Palomares PA-C Work Phone: [facility] 11-12-2021 14:13-0400 Systolic blood pressure 112 mm[Hg] NA Palomares PA-C Work Phone: [facility] Encounters Encounter Date Encounter Type Care Provider Facility Start: 06-08-2023 End: 06-09-2023 ambulatory LILIAMLucius ROWELL Facility:[facility] Start: 05-25-2023 Telephone encounter Greg Martino MD Work Phone: [facility] Procedures Date Procedure Procedure Detail Performing Clinician Start: 01-26-2023 Mri brain brain stem w/o contrast material Urvashi Hughes [employer] Work Phone: Start: 09-01-2022 Us breast uni [...] Work Phone: Start: 10-02-2014 Colonoscopy Denice darling PAPER PATTERN FOLDER.[employer] Work Phone: Plan of Treatment Date Care Activity Detail Author Start: 11-13-2031 Urine microalbumin profile [facility] Start: 11-27-2026 Colonoscopy COLONOSCOPY [facility] Start: 11-27-2026 COLORECTAL CANCER SCREENING COLORECTAL CANCER SCREENING [facility] Start: 10-20-2025 DIABETES SCREEN DIABETES SCREEN [facility] Start: 10-20-2025 Diabetes Screening Diabetes Screenin g [facility] Start: 03-09-2025 DIABETES SCREEN DIABETES SCREEN [facility] Start: 11-12-2024 DIABETES SCREEN DIABETES SCREEN [facility] Start: 05-10-2024 Annual PCP Team [employer]er pari Disease Visit Annual PCP Team Chronic Disease Visit [facility] Start: 05-10-2024 BP Controlled (<130/80) BP Controlle d (<130/80) [facility] Start: 02-14-2024 Lipid 1996 panel - S cintia or Plasma Lipid Screening [facility] Start: 02-14-2024 LIPID SCREEN LIPID SCREEN [facility] Start: 02-10-2024 BP CONTROLLED (<130/80) BP CONTROLLE D (<130/80) [facility] Start: 01-05-2024 ANNUAL PCP TEAM KNITTER MECHANIC PARI DISEASE VISIT ANNUAL PCP TEAM CHRONIC DISEASE VISIT [facility] Start: 12-10-2023 ANNUAL PCP TEAM KNITTER MECHANIC PARI DISEASE VISIT ANNUAL PCP TEAM CHRONIC DISEASE VISIT [facility] Start: 11-09-2023 ANNUAL PCP TEAM KNITTER MECHANIC PARI DISEASE VISIT ANNUAL PCP TEAM CHRONIC DISEASE VISIT [facility] Start: 09-17-2023 ANNUAL PCP TEAM KNITTER MECHANIC PARI DISEASE VISIT ANNUAL PCP TEAM CHRONIC DISEASE VISIT [facility] Start: 09-02-2023 Mammography [facility] Start: 08-16-2023 ANNUAL PCP TEAM KNITTER MECHANIC PARI DISEASE VISIT ANNUAL PCP TEAM CHRONIC DISEASE VISIT [facility] Start: 07-29-2023 ANNUAL PCP TEAM KNITTER MECHANIC PARI DISEASE VISIT ANNUAL PCP TEAM CHRONIC DISEASE VISIT [facility] Start: 07-29-2023 BP CONTROLLED (<130/80) BP CONTROLLE D (<130/80) [facility] Start: 05-26-2023 Influenza vaccination LUNG CANCER SC REENING [facility] Start: 05-25-2023 BP CONTROLLED (<130/80) BP CONTROLLE D (<130/80) [facility] Start: 05-14-2023 ANNUAL PCP TEAM KNITTER MECHANIC PARI DISEASE VISIT ANNUAL PCP TEAM CHRONIC DISEASE VISIT [facility] Start: 05-07-2023 BP CONTROLLED (<130/80) BP CONTROLLE D (<130/80) [facility] Start: 04-01-2023 ANNUAL PCP TEAM KNITTER MECHANIC PARI DISEASE VISIT ANNUAL PCP TEAM CHRONIC DISEASE VISIT [facility] Start: 04-01-2023 BP CONTROLLED (<130/80) BP CONTROLLE D (<130/80) [facility] Start: 04-01-2023 SHINGRIX VACCINE (2 of 2) ULLOA GRIX VACCINE (2 of 2) [facility] Immunizations Immunization Date Immunization Notes Care Provider Fa aurelia 04-01-2022 COVID-19 booster vaccine, age 12+ yr, bivalent (Talaentia) ASHLEY Palomares PA-C Work Phone: [facility] 04-01-2022 influenza, injectabl e, quadrivalent, contains preservative ASHLEY Palomares PA-C Work Phone: [facility] 04-01-2022 influenza virus vacc ine, unspecified formulation NA Palomares PA-C Work Phone: [facility] 11-12-2021 pneumococcal Conjuga te, unspecified formulation NA Palomares PA-C Work Phone: [facility] Work Phone: 11-12-2021 COVID-19 vaccine, ag e 12+ yr ([id number]) NA Palomares PA-C Work Phone: [facility] 11-12-2021 pneumococcal (PCV20) vaccine, 20 valent (PREVNAR 20) NA Palomares PA-C Work Phone: [facility] 11-12-2021 tetanus toxoid, redu ricky diphtheria toxoid, and acellular pertussis vaccine, adsorbed NA Palomares PA-C Work Phone: [facility] 11-12-2021 zoster vaccine recombinant NA Palomares PA-C Work Phone: [facility] 01-23-2021 COVID-19 vaccine (LEROY) NA Palomares PA-C Work Phone: [facility] 05-09-2019 influenza, seasonal, injectable NA Palomares PA-C Work Phone: [facility] 03-13-2018 influenza, injectabl e, quadrivalent, contains preservative NA Palomares PA-C Work Phone: [facility] Work Phone: 05-05-2017 influenza, injectabl e, quadrivalent, contains preservative NA Palomares PA-C Work Phone: [facility] Work Phone: 04-30-2016 influenza, seasonal, injectable, preservative free NA Palomares PA-C Work Phone: [facility] 02-27-2016 influenza, injectabl e, quadrivalent, contains preservative NA Palomares PA-C Work Phone: [facility] 02-26-2016 influenza, seasonal, injectable NA Palomares PA-C Work Phone: [facility] 06-04-2015 influenza, injectabl e, quadrivalent, contains preservative NA Palomares PA-C Work Phone: [facility] 06-04-2015 influenza, seasonal, injectable NA Palomares PA-C Work Phone: [facility] 06-03-2014 influenza, seasonal, injectable NA Palomares PA-C Work Phone: [facility] Work Phone: 05-02-2014 pneumococcal polysaccharide vaccine, 23 valent NA Palomares PA-C Work Phone: [facility] Work Phone: 06-20-2006 TD(adult) unspecifie d formulation NA Palomares PA-C Work Phone: [facility] 06-20-2006 tetanus and diphther ia toxoids, adsorbed, preservative free, for adult use (2 Lf of tetanus toxoid and 2 Lf of diphtheria toxoid) NA Palomares PA-C Work Phone: [facility] Payers Date Payer Category Payer Medicaid [id number] 2013 Medicaid [employer] [id number] 2013-Present [phone] [address] [place] [address] Medicaid [id number] 2013 Medicaid [id number] 2013 Unknown [id number] 1970 Unknown [id number] Social History Date Type Detail Facility Start: 10-14-2016 End: 10-14-2022 Tobacco smoking status NHIS Smokes tobacco daily [facility] History of tobacco use Cigarette Smoker C [facility] Start: 10-14-2016 End: 07-02-2022 Cigarettes smoked current (pack per day) - Reported 0.75 [facility] Start: 10-14-2016 End: 10-14-2022 Tobacco use and exposure Smokeless tobacco non-user [facility] Start: 06-18-2021 End: 08-27-2021 Alcohol intake Current drinker of alcohol (finding) [facility] Start: 07-23-2021 History SDOH Alcohol Frequency 1 [facility] Start: 07-23-2021 History SDOH Alcohol Std Drinks 5 [facility] Start: 07-23-2021 History SDOH Social Connections Get Together 2 [facility] Start: 07-23-2021 History SDOH Social Connections Meetings 3 [facility] Start: 07-23-2021 History SDOH Stress 4 [facility] Start: 09-29-2015 End: 02-11-2022 Tobacco Comment started smoking 12yr .5 to .75 of pack daily-in process of quitting as of 09/29/15 [facility] Start: 1970 Sex Assigned At Female [facility] Start: 08-17-2021 End: 05-07-2022 Exposure to SARS-CoV-2 (event) Not sure [facility] Start: 11-23-2021 End: 05-10-2023 Alcohol intake Ex-drinker (finding) [facility] Start: 02-20-2022 End: 03-02-2022 Exposure to SARS-CoV-2 (event) Unable to assess [facility] Start: 07-29-2022 Tobacco Comment started smoking 14yr, 3 cigs daily [facility] Start: 07-23-2021 End: 07-02-2022 Social connection and isolation panel [facility] Frequency of Communication with Friends and Family Not on file [facility] Work Phone: Do you belong to any clubs or organizations such as judaism groups, unions, fraternal or athletic groups, or school groups? Yes [facility] Are you now , , , , never or living with a partner? [facility] How often to you hav e a drink containing alcohol? Never [facility] How many standard dr inks containing alcohol do you have on a typical day? 10 or more [facility] How hard is it for y ou to pay for the very basics like food, housing, medical care, and heating Hard [facility] Do you feel stress - tense, restless, nervous, or anxious, or unable to sleep at night because your mind is troubled all the time - these days [OSQ] Rather much [facility] ([facility]We[facility] would run out before (I/we) got money to buy more. Sometimes true [facility] The food that (I/we) bought just didn't last, and (I/we) didn't have money to get more. Never true [facility] At any time in the p ast 12 months, were you homeless or living in fdc [including now]? No [facility] Start: 03-05-2021 Gender identity Identifies as female gender (finding) [facility] Start: 03-05-2021 Sexual orientation Heterosexual (finding) [facility] Clinical Notes 05-02-2021 to 06-08-2023 Telephone Encounter - Agustina Guillen Ma - 05/25/2023 9:51 AM ESTTelephone Encounter - Flo Martino MD - 05/25/2023 9:38 AM Flo Reyna MD - 05/10/2023 11:12 AM EST Note Date & Type Note Facility 06-08-2023 Note HNO ID: [id number] Author: Liliam Rowell APRN.TELEMARKETING FUNDRAISER Service: ? Author Type: Nurse Practitioner Type: Progress Notes Filed: 06/08/2023 1:03 PM Note Text: This is a 53 year old female who presents today with: Patient presents with: [facility] follow up: zaki EVANGELISTA 06/06; transferred from [facility] HISTORY OF PRESENT ILLNESS: Mariluz Garcia is a 53 year old female. Patient presents with: mcc follow up: zaki EVANGELISTA 06/06; transferred from [facility] Pt presents today for hospital/mcc follow-up. Went to the hospital d/t arms and legs stopped working. Called squad to go to the ER. 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 Had C3-C5 ACDF on 05/18. Did well after surgery. Went to [facility] on 05/23 for additional rehab. Discharged [...] care 05/15/2020 HOSPITAL/ER FOLLOW UP Which facility: [facility] Dates of visit: 05/10-05/13/2020 Preadmission evaluation: [...] of admission 05/01/2021 Date of discharge: Facility: [facility] 05/01/2021 presented to the emergency room with acute alcohol intoxication, initial alcohol level 7-8. Acknowledges over the last 5 months drinking 15 packs a day at 8% alcohol (joseaidan samaniego). Vital signs 96.6 F-78-18-111/73-98%. Appearance was no acute distress. WBC 7.9-Hgb 13.8-HCT 39 Encounter for support and coordination of transition of care 05/05/2022 05/05/2022 patient called squad, transported to [facility] with lightheadedness and multiple syncopal episodes one of them resulting in injury to her right foot. GERD (gastroesophageal reflux disease) Hyperglycemia Hypertension Lung abscess ([facility]) saw Néstor Li and Dr. Zarate. Major depression Mild protein-calorie malnutrition ([facility]) 08/26/2020 Obesity PE (pulmonary thromboembolism) ([facility]) PTSD (post-traumatic stress disorder) Snoring Tobacco use [...] Sig ibuprofen (MOT (more content not included)... [facility] 05-26-2023 Note HNO ID: [id number] Author: Rima Espinal PTA Service: ? Author Type: Concrete Paving Supervisor Type: Progress Notes Filed: 05/26/2023 4:36 PM Note Text: 05/26/2023 [facility] PHYSICAL THERAPY [...] scheduled additional follow-up appointments. Rima Espinal PTA [facility] 05-25-2023 Miscellaneous Notes Patient notified and in nursing facility at this time Agustina Guillen Ma Patient's MRI of the cervical spine ordered by our office has not been approved by her insurance. It appears she had MRI of cervical spine at [facility] on 05/16 and was hospitalized after a fall. Will cancel our order. F/u with PCP team for hospital discharge. documented in this encounter [facility] 05-20-2023 Miscellaneous Notes Completed forms faxed Forms to providers desk to review and complete. Type of form: CMN/Incontinence Order Form from [facility] Form received via fax When form is completed, Fax form to [phone] Form has been forwarded to Provider Mailbox: ALEIDA Diane documented in this encounter [facility] 05-10-2023 Note HNO ID: [id number] Author: Flo Martino MD Service: ? Author Type: Physician Type: Progress Notes Filed: 05/11/2023 4:49 PM Note Text: Chief Complaint Patient presents with: ER F/U: Numbness and tingling in Bilateral hands HPI Mariluz Garcia is a 53 year old female who presents here today for ER Follow Up.. Patient evaluated at [facility] ED on 04/29 for complaint of [...] care 05/15/2020 HOSPITAL/ER FOLLOW UP Which facility: [facility] Dates of visit: 05/10-05/13/2020 Preadmission evaluation: [...] of admission 05/01/2021 Date of discharge: Facility: [facility] 05/01/2021 presented to the emergency room with acute alcohol intoxication, initial alcohol level 7-8. Acknowledges over the last 5 months drinking 15 packs a day at 8% alcohol (natty daddy). Vital signs 96.6 F-78-18-111/73-98%. Appearance was no acute distress. WBC 7.9-Hgb 13.8-HCT 39 Encounter for support and coordination of transition of care 05/05/2022 05/05/2022 patient called squad, transported to [facility] with lightheadedness and multiple syncopal episodes one of them resulting in injury to her right foot. GERD (gastroesophageal reflux disease) Hyperglycemia Hypertension Lung abscess ([facility]) saw Néstor Li and Dr. Zarate. Major depression Mild protein-calorie malnutrition ([facility]) 08/26/2020 Obesity PE (pulmonary thromboembolism) ([facility]) PTSD (post-traumatic stress disorder) Snoring Tobacco use [...] daily. metoprolol succinate (more content not included)... [facility] 05-10-2023 History of Present illness Narrative Chief Complaint Patient presents with: ER F/U: Numbness and tingling in Bilateral hands HPI Mariluz Garcia is a 53 year old female who presents here today for ER Follow Up.. Patient evaluated at [facility] ED on 04/29 for complaint of [...] care 05/15/2020 HOSPITAL/ER FOLLOW UP Which facility: [facility] Dates of visit: 05/10-05/13/2020 Preadmission evaluation: [...] of admission 05/01/2021 Date of discharge: Facility: [facility] 05/01/2021 presented to the emergency room with acute alcohol intoxication, initial alcohol level 7-8. Acknowledges over the last 5 months drinking 15 packs a day at 8% alcohol (natty daddy). Vital signs 96.6 F-78-18-111/73-98%. Appearance was no acute distress. WBC 7.9-Hgb 13.8-HCT 39 Encounter for support and coordination of transition of care 05/05/2022 05/05/2022 patient called squad, transported to [facility] with lightheadedness and multiple syncopal episodes one of them resulting in injury to her right foot. GERD (gastroesophageal reflux disease) Hyperglycemia Hypertension Lung abscess ([facility]) saw Néstor Li and Dr. Zarate. Major depression Mild protein-calorie malnutrition ([facility]) 08/26/2020 Obesity PE (pulmonary thromboembolism) ([facility]) PTSD (post-traumatic stress disorder) Snoring Tobacco use [...] joint swelling, deformity, or tenderness. 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 5/5 strength in arms. Decreased [...] Flo Martino MD documented in this encounter [facility] 03-11-2023 Note HNO ID: [id number] Author: Rima Espinal PTA Service: ? Author Type: Concrete Paving Supervisor Type: Progress Notes Filed: 03/11/2023 1:25 PM [...] on stairs Entered the pool assist level: [place], With rail Aquatic Therapy (02896): Walking, Lower Extremity, Stretching and Flexibility, Vertical / [place] - Buoyancy Supported Walking: Forward Walking, Lateral/ Side Stepping Water Turbulence: #1 Forward Walking: x5 Lateral/Side Stepping: x5 Lower Extremity: Hip Flexion, Hip Extension, Hip Abduction, Hip Circumduction Hip Flexion: 2x10 Hip Extension: 2x10 Hip Abduction: 2x10 Hip Circumduction: 5/5ea Vertical/Onsted - Buoyancy Supported : Hip Abduction/ Adduction, [...] Stop Time : 1322 Rima Espinal PTA [facility] 03-11-2023 History of Present illness Narrative [...] on stairs Entered the pool assist level: [place], With rail Aquatic Therapy (00046): Walking, Lower Extremity, Stretching and Flexibility, Vertical / [place] - Buoyancy Supported Walking: Forward Walking, Lateral/ Side Stepping Water Turbulence: #1 Forward Walking: x5 Lateral/Side Stepping: x5 Lower Extremity: Hip Flexion, Hip Extension, Hip Abduction, Hip Circumduction Hip Flexion: 2x10 Hip Extension: 2x10 Hip Abduction: 2x10 Hip Circumduction: 5/5ea Vertical/Onsted - Buoyancy Supported : Hip Abduction/ Adduction, [...] Rima Espinal PTA documented in this encounter [facility] 03-09-2023 Miscellaneous Notes Completed and faxed. Type of form: DME Form received via fax When form is completed, Fax form to [phone] Form has been forwarded to Physician Mailbox: Faustino Mascorro LPN documented in this encounter [facility] 02-28-2023 Miscellaneous Notes Last OV: 01/04/23 [...] Zoraida Garcia LPN documented in this encounter [facility] 02-16-2023 Note HNO ID: [id number] Author: Anay Esteban, PT Service: ? Author [...] up without use of hands on thighs [place] in home exercise program. Perform ADL's with decreased report of symptoms/pain in 6-8 weeks. Increased strength of (B) LE's by one full MMT grade or better Patient Goals: decreasde pain and improved function Planned Interventions, Frequency, and Duration: Current Frequency: 2x/week Duration: 8 weeks Total Number of Visits Planned: 16 Planned Treatment Interventions: Aquatic PT (69469), Therapeutic exercise (35252), Neuromuscular re-education (20473), Manual therapy (46329), Therapeutic activities (78833), Self-snf management (13022), Gait Training (12029), Group Therapy (22278) PLAN FOR NEXT VISIT: begin aquatic therapy Patient demonstrates good understanding of plan of care and treatment. The above goals and plan of care were discussed and agreed upon by patient/family. SUBJECTIVE: pain in the (R) hip and (L) leg. Pain shoots down the left leg. All was exacerbated from a fall last December. Hip is dmsr-xs-obtc. Patient Goals: decreasde pain and improved function [...] Education: Education Learni (more content not included)... [facility] 02-16-2023 History of Present illness Narrative [...] up without use of hands on thighs [place] in home exercise program. Perform ADL's with decreased report of symptoms/pain in 6-8 weeks. Increased strength of (B) LE's by one full MMT grade or better Patient Goals: decreasde pain and improved function Planned Interventions, Frequency, and Duration: Current Frequency: 2x/week Duration: 8 weeks Total Number of Visits Planned: 16 Planned Treatment Interventions: Aquatic PT (02023), Therapeutic exercise (53328), Neuromuscular re-education (53170), Manual therapy (61855), Therapeutic activities (84996), Self-snf management (43024), Gait Training (38744), Group Therapy (57576) PLAN FOR NEXT VISIT: begin aquatic therapy Patient demonstrates good understanding of plan of care and treatment. The above goals and plan of care were discussed and agreed upon by patient/family. SUBJECTIVE: pain in the (R) hip and (L) leg. Pain shoots down the left leg. All was exacerbated from a fall last December. Hip is iyti-qb-cerg. Patient Goals: decreasde pain and improved function [...] Anay Esteban PT documented in this encounter [facility] 02-14-2023 Note HNO ID: [id number] Author: Carmelita Ragsdale MD Service: ? Author [...] old premenopausal woman who presents to the [facility] [place] today for evaluation of breast pain. She [...] care 05/15/2020 HOSPITAL/ER FOLLOW UP Which facility: [facility] Dates of visit: 05/10-05/13/2020 Preadmission evaluation: [...] of admission 05/01/2021 Date of discharge: Facility: [facility] 05/01/2021 presented to the emergency room with acute alcohol intoxication, initial alcohol level 7-8. Acknowledges over the last 5 months drinking 15 packs a day at 8% alcohol (natty daddy). Vital signs 96.6 F-78-18-111/73-98%. Appearance was no acute distress. WBC 7.9-Hgb 13.8-HCT 39 Encounter for support and coordination of transition of care 05/05/2022 05/05/2022 patient called squad, transported to [facility] with lightheadedness and multiple syncopal episodes one of them resulting in injury to her right foot. GERD (gastroesophageal reflux disease) Hyperglycemia Hypertension Lung abscess ([facility]) saw Néstor Li and Dr. Zarate. Major depression Mild protein-calorie malnutrition ([facility]) 08/26/2020 Obesity PE (pulmonary thromboembolism) ([facility]) PTSD (post-traumatic stress disorder) Snoring Tobacco use [...] NRV CARPAL T (more content not included)... [facility] 02-14-2023 Instructions Agustina Brown PA-C - 02/14/2023 11:18 AM EDT Patient to call [phone] for appointment with genetics. documented in this encounter [facility] 02-14-2023 History of Present illness Narrative [...] old premenopausal woman who presents to the [facility] for evaluation of breast pain. She reports [...] care 05/15/2020 HOSPITAL/ER FOLLOW UP Which facility: [facility] Dates of visit: 05/10-05/13/2020 Preadmission evaluation: [...] of admission 05/01/2021 Date of discharge: Facility: [facility] 05/01/2021 presented to the emergency room with acute alcohol intoxication, initial alcohol level 7-8. Acknowledges over the last 5 months drinking 15 packs a day at 8% alcohol (nataidan samaniego). Vital signs 96.6 F-78-18-111/73-98%. Appearance was no acute distress. WBC 7.9-Hgb 13.8-HCT 39 Encounter for support and coordination of transition of care 05/05/2022 05/05/2022 patient called squad, transported to [facility] with lightheadedness and multiple syncopal [...] which included preparing to see the patient, [id number] patient care, completing clinical documentation, obtaining and/or [...] 2023 CC: Jenifer Yeager [address] [facility] [address] [address] [place] [address] documented in this encounter [facility] 02-14-2023 Miscellaneous Notes TC to pt who voiced understanding. Of results below. Jenifer Ngo LPN ----- Message from Urvashi Hughes APRN.TELEMARKETING FUNDRAISER sent at 02/14/2023 7:30 AM EDT ----- EEG is normal and does not show any evidence of seizure activity. documented in this encounter [facility] 02-09-2023 Note HNO ID: [id number] Author: Ibeth Albert PA-C Service: ? Author Type: Physician Airplane Fueler Type: Progress Notes Filed: 02/09/2023 11:04 AM Note Text: [facility] [address] [address] 02/09/2023 ASSESSMENT AND PLAN: Assessment : Encounter [...] back in 2012 or 2013 outside of [facility]. She has had intermittent LEFT lower [...] today with this patient visit. This includes xskx-nx-sdko time, review of chart records regarding conservative care history, spine-pertinent imaging, and communication/care coordination with referring provider, problem-specific history-taking and counseling/education regarding treatment options. cc: Jaimee Palomares [address] [facility] [address] Results of consultation to be transmitted via electronic medical record for those providers who practice within [facility] or with access to [employer] via MD Connect, or via letter. ################################# ################################# ###### CHIEF COMPLAINT: Lower back pain HPI: see Discussion above History of bowel or bladder dysfunction (not IBS or constipation): Yes, urgency and incontinence. (more content not included)... [facility] 02-07-2023 Miscellaneous Notes Pharmacy requesting refill [...] Fadumo Romero RN documented in this encounter [facility] 02-02-2023 Miscellaneous Notes I called patient regarding her upcoming new patient appointment on 02/14/[address] Ragsdale. She was referred by her KENNEL HELPER Jenifer Yeager APRN. ALYSSA for dense breasts [...] Bria Burton MA documented in this encounter [facility] 01-31-2023 Miscellaneous Notes In review of patient chart, all below have been scheduled. Nothing further at this time. BETTY Fernandez TC to patient who verbalized understanding of providers message below with no questions at this time. Patient is asking that a director hr communications contact her to assist with rescheduling her cancelled EEG as well as to set her up with the ordered [facility]. Please contact patient and assist with above. Thank you!. BETTY Fernandez ----- Message from Urvashi Hughes APRN.TELEMARKETING FUNDRAISER sent at 01/27/2023 7:44 AM EDT ----- Please let pt know her MRI of the brain does not show any new changes or concerns. Results are unchanged since her previous image in 03/2022. No findings to explain her recent symptoms. documented in this encounter [facility] 01-31-2023 Miscellaneous Notes Patient has been [...] advise. Fadumo Castañeda documented in this encounter [facility] 01-28-2023 Miscellaneous Notes Refill request: Requested [...] Fadumo Romero RN documented in this encounter [facility] 01-26-2023 Note HNO ID: [id number] Author: Bharti Gant RT(R) Service: ? Author [...] RT Benson(R) January 26, 2023 11:39 AM [facility] 01-26-2023 History of Present illness Narrative [...] 2023 11:39 AM documented in this encounter [facility] 01-14-2023 Miscellaneous Notes Letter written. Does she need to cancel her injection in [place] on 01/19? Deloris Troy III, [place], [place] Patient has called in asking for a release of care from our office as she will be going to a different Pain Management. She will also be going to the [place] office on to fill out the medical records release form. Please advise. Laura Villegas documented in this encounter [facility] 01-06-2023 Miscellaneous Notes Patient has been [...] Hanna Mares RN documented in this encounter [facility] 01-05-2023 Miscellaneous Notes I don't have [...] Sruthi Piña LPM documented in this encounter [facility] 01-04-2023 Note HNO ID: [id number] Author: Jaimee Palomares PA-C Service: ? Author Type: Physician Airplane Fueler Type: Progress Notes Filed: 01/05/2023 1:49 PM Note Text: 52 year old female with c/o ER hospital follow-up 12/29/2022 presented to [facility] emergency department with complaint of [...] care 05/15/2020 HOSPITAL/ER FOLLOW UP Which facility: [facility] Dates of visit: 05/10-05/13/2020 Preadmission evaluation: [...] of admission 05/01/2021 Date of discharge: Facility: [facility] 05/01/2021 presented to the emergency room with acute alcohol intoxication, initial alcohol level 7-8. Acknowledges over the last 5 months drinking 15 packs a day at 8% alcohol (marcin samaniego). Vital signs 96.6 F-78-18-111/73-98%. Appearance was no acute distress. WBC 7.9-Hgb 13.8-HCT 39 Encounter for support and coordination of transition of care 05/05/2022 05/05/2022 patient called squad, transported to [facility] with lightheadedness and multiple syncopal episodes (more content not included)... [facility] 01-03-2023 Miscellaneous Notes Patient called requesting the following refill. Requested Prescriptions Pending Prescriptions Disp Refills oxybutynin ER (DITROPAN XL) 10 mg 24 hr tablet [Pharmacy Med Name: Oxybutynin Chloride ER 10MG TB24] 30 tablet 11 Sig: TAKE 1 TABLET BY MOUTH DAILY Patient last appointment: 11/05/2022 Patient Phone numbers: [phone] (home) Request is for script(s) to be escript to pharmacy. Vu Moura Ma documented in this encounter [facility] 12-23-2022 Miscellaneous Notes Patient has been [...] request does not meet the guidelines.Guidelines used: [place] Administrative Code Rule 5160-4-12 Immunizations, injections and infusions (including trigger-point injections), skin substitutes, and provider-administered pharmaceuticals; [place] Administrative Code 5160-1-01; [facility] Trigger Point Injections (MM-0011) Date of Service 01/13/23 Is Peer to Peer Available? (Instructions below) Yes Peer to Peer Deadline Until (5 business days) Appeal Deadline (Instructions below) 180 calendars days from 12/18/22 Insurance Case Information Insurance Name Jv Patient's Insurance Case# [id number] Ordering Provider DELORIS TROY Approved Services Denied Services 90869 (CPT ) - TRIGGER POINT INJECTION MULTI 3+ MUSCLE GRP Alternative Recommendation N/A *Service which can be approved in place of denied service. Clinical Documentation Provided Peer to Peer Instructions Peer to Peer opt 1 Does Peer to Peer need to be scheduled? Yes, by leaving a voice mail requesting a call back. Who can complete the Peer to Peer? Dr, PA, HOUSEKEEPER NANNY, LN Additional Peer to Peer Instructions You [...] required for appeal submission. Facility Information Location [facility] [id number] Tax ID# [id number] documented in this encounter [facility] 12-16-2022 Miscellaneous Notes No Show Documentation Mariulz Garcia no showed for an appointment on [...] 2022 2:28 PM documented in this encounter [facility] 12-16-2022 Note HNO ID: [id number] Author: Urvashi Hughes APRN.CNP Service: ? Author Type: Nurse Practitioner Type: Progress Notes Filed: 12/16/2022 1:17 PM Note Text: [facility] [place] Follow-up Visit Follow-up note December 16, 2022 [...] Words, up to 2 trials: Face, Velvet, Buddhist, Yudith, Red (no points) 5/5 first try, [...] 1 error) (06/20) Serial subtraction by 7: [id number] (3 points for correct 4 or 5; 2 points for 2 or 3 correct; 1 point for 1 correct) [id number] (/) Language: repeat: I only know that [...] (2/2) Delayed recall: recall words: face, velvet, judaism, yudith, red (0-5) (/5) Orientation: date(1), month(1), [...] DDD (degenerative di (more content not included)... [facility] 12-16-2022 History of Present illness Narrative Images from the original note were not included. [facility] [place] Follow-up Visit Follow-up note December 16, 2022 [...] Words, up to 2 trials: Face, Velvet, Buddhist, Yudith, Red (no points) 5/5 first try, [...] 1 error) (06/20) Serial subtraction by 7: [id number] (3 points for correct 4 or 5; 2 points for 2 or 3 correct; 1 point for 1 correct) [id number] (3/3) Language: repeat: I only know that [...] (2/2) Delayed recall: recall words: face, velvet, judaism, yudith, red (0-5) (4/5) Orientation: date(1), month(1), [...] care 05/15/2020 HOSPITAL/ER FOLLOW UP Which facility: [facility] Dates of visit: 05/10-05/13/2020 Preadmission evaluation: [...] of admission 05/01/2021 Date of discharge: Facility: [facility] 05/01/2021 presented to the emergency room with acute alcohol intoxication, initial alcohol level 7-8. Acknowledges over the last 5 months drinking 15 packs a day at 8% alcohol (marcin josealfa). Vital signs 96.6 F-78-18-111/73-98%. Appearance was no acute distress. WBC 7.9-Hgb 13.8-HCT 39 Encounter for support and coordination of transition of care 05/05/2022 05/05/2022 patient called squad, transported to [facility] with lightheadedness and multiple syncopal episodes one of them resulting in injury to her right foot. GERD (gastroesophageal reflux disease) Hyperglycemia Hypertension Lung abscess ([facility]) saw Néstor Li and Dr. Zarate. Major depression Mild protein-calorie malnutrition ([facility]) 08/26/2020 Obesity PE (pulmonary thromboembolism) ([facility]) PTSD (post-traumatic stress disorder) Snoring Tobacco use [...] Abs Lymph 1.00 - 4.00 k/uL 1.75 Cooke% % 9.1 Abs Cooke <0.87 k/uL 0.67 Eosin% % 4.1 Abs [...] Alcohol abuse, in remission F19.10 Polysubstance abuse ([facility]) Z79.899 Polypharmacy R26.89 Balance problem R29.6 Falls [...] which included preparing to see the patient, ysrx-yw-luca patient care, completing clinical documentation, obtaining and/or reviewing separately obtained history, performing a medically appropriate examination, counseling and educating the patient/family/caregiver, and ordering medications, tests, or procedures. documented in this encounter [facility] 12-10-2022 Miscellaneous Notes The following approved [...] to them. Pended. documented in this encounter [facility] 12-10-2022 Miscellaneous Notes Patient calls to request order for BP cuff be sent to DEYANIRA Powell. Faxed per request to [phone]. Hanna Mares RN documented in this encounter [facility] 12-09-2022 Note HNO ID: [id number] Author: Jaimee Palomares PA-C Service: ? Author Type: Physician Airplane Fueler Type: Progress Notes Filed: 12/09/2022 7:56 PM [...] care 05/15/2020 HOSPITAL/ER FOLLOW UP Which facility: [facility] Dates of visit: 05/10-05/13/2020 Preadmission evaluation: [...] of admission 05/01/2021 Date of discharge: Facility: [facility] 05/01/2021 presented to the emergency room with acute alcohol intoxication, initial alcohol level 7-8. Acknowledges over the last 5 months drinking 15 packs a day at 8% alcohol (marcin samaniego). Vital signs 96.6 F-78-18-111/73-98%. Appearance was no acute distress. WBC 7.9-Hgb 13.8-HCT 39 Encounter for support and coordination of transition of care 05/05/2022 05/05/2022 patient called [facility], transported to [facility] with lightheadedness and multiple syncopal episodes one of them resulting in injury to her right foot. GERD (gastroesophageal reflux disease) Hyperglycemia Hypertension Lung abscess (HCC) saw Néstor Li and Dr. Zarate. Major depression Mild protein-calorie malnutrition (HCC) 08/26/2020 Obesity PE (pulmonary thromboembolism) ([facility]) PTSD (post-traumatic stress disorder) Snoring Tobacco use [...] Spondylosis Without Myel (more content not included)... [facility] 12-09-2022 History of Present illness Narrative [...] care 05/15/2020 HOSPITAL/ER FOLLOW UP Which facility: [facility] Dates of visit: 05/10-05/13/2020 Preadmission evaluation: [...] of admission 05/01/2021 Date of discharge: Facility: [facility] 05/01/2021 presented to the emergency room with acute alcohol intoxication, initial alcohol level 7-8. Acknowledges over the last 5 months drinking 15 packs a day at 8% alcohol (marcin samaniego). Vital signs 96.6 F-78-18-111/73-98%. Appearance was no acute distress. WBC 7.9-Hgb 13.8-HCT 39 Encounter for support and coordination of transition of care 05/05/2022 05/05/2022 patient called squad, transported to [facility] with lightheadedness and multiple syncopal episodes one of them resulting in injury to her right foot. GERD (gastroesophageal reflux disease) Hyperglycemia Hypertension Lung abscess (HCC) saw Néstor Li and Dr. Zarate. Major depression Mild protein-calorie malnutrition (HCC) 08/26/2020 Obesity PE (pulmonary thromboembolism) ([facility]) PTSD (post-traumatic stress disorder) Snoring Tobacco use [...] Pain With Left-Sided Sciatica Pe (Pulmonary Thromboembolism) ([facility]) Hyperglycemia Stasis Edema Right Lumbar Radiculopathy Obesity, Class III, BMI >= 40 (morbid obesity) E66.01 Delusional Disorder ([facility]) Chronic Low Back Pain With Sciatica Abnormal Echocardiogram Chronic Left-Sided Low Back Pain With Sciatica Copd (Chronic Obstructive Pulmonary Disease) With Chronic Bronchitis ([facility]) Positive Urine Drug Screen Lumbar Spondylosis Cervical Spondylosis Without Myelopathy Other Chest Pain Stress Incontinence Chronic Active Hepatitis C ([facility]) History of Colonic Polyps Traumatic [...] Jaimee Palomares PA-C documented in this encounter [facility] 11-22-2022 Miscellaneous Notes Patient calling to say she was seen in [facility] ER today. She says she was [...] 7. :NO Protocols used: Blood Pressure - [id number] documented in this encounter [facility] 11-22-2022 Miscellaneous Notes Last OV: 11/08/22. [...] Zoraida Garcia LPN documented in this encounter [facility] 11-08-2022 Note HNO ID: [id number] Author: Jaimee Palomares PA-C Service: ? Author Type: Physician Airplane Fueler Type: Progress Notes Filed: 11/08/2022 8:05 PM [...] having emergency surgery for hernia sent to [facility]. Still having some flashes shoot behind [...] care 05/15/2020 HOSPITAL/ER FOLLOW UP Which facility: [facility] Dates of visit: 05/10-05/13/2020 Preadmission evaluation: [...] of admission 05/01/2021 Date of discharge: Facility: [facility] 05/01/2021 presented to the emergency room with acute alcohol intoxication, initial alcohol level 7-8. Acknowledges over the last 5 months drinking 15 packs a day at 8% alcohol (marcin samaniego). Vital signs 96.6 F-78-18-111/73-98%. Appearance was no acute distress. WBC 7.9-Hgb 13.8-HCT 39 Encounter for support and coordination of transition of care 05/05/2022 05/05/2022 patient called squad, transported to [facility] with lightheadedness and multiple syncopal episodes one of them resulting in injury to her right foot. GERD (gastroesophageal reflux disease) Hyperglycemia Hypertension Lung abscess ([facility]) saw Néstor Li and Dr. Zarate. Major depression Mild protein-calorie malnutrition ([facility]) 08/26/2020 Obesity PE (pulmonary thromboembolism) ([facility]) PTSD (post-traumatic stress disorder) Snoring Tobacco use [...] smoking 14yr, 3 (more content not included)... [facility] 10-26-2022 Miscellaneous Notes Patient has been [...] Maribell Baltazar LPN documented in this encounter [facility] 10-20-2022 Note HNO ID: [id number] Author: Jenifer Yeager APRN.AKOSUA Service: ? 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 Acknowledges over the last 5 months drinking 15 packs a day at 8% alcohol (marcin samaniego). Vital signs 96.6 F-78-18-111/73-98%. Appearance was no acute distress. WBC 7.9-Hgb 13.8-HCT 39 Encounter for support and coordination of transition of care 05/05/2022 05/05/2022 patient called squad, transported to [facility] with lightheadedness and multiple syncopal [...] 800 mg table (more content not included)... [facility] 10-20-2022 Instructions Jenifer Yeager APRN.[facility] - 10/20/2022 11:32 AM EDT Management of Benign Breast Pain / Fibrocystic Changes Decrease or avoid intake of caffeine, including coffee, teas, sodas, and chocolate. Decrease or avoid nicotine. Wear a support or sports (not underwire) bra. Take sugw-tem-ojcsbuv ibuprofen (Advil/Motrin) or other NSAIDs, such as naproxen (Aleve). Take 3 grams (3000 mg.) of evening primrose oil (available wsql-rvq-pglmqix) in divided doses for 2 months. Take [...] your health care provider. You cannot purchase umjw-kzw-yzuipyl products to treat BV. Products for douching [...] swelling, or soreness around the vagina Copyright 3702-1269 [facility]. All rights reserved. This information is provided by the [facility] and is not intended to replace the medical advice of your doctor or health care provider. Please consult your health care provider for advice about a specific medical condition. For additional written health information, please contact the Health Information Center at the [facility] or toll-free extension [phone] or visit [email or web address] 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 Acknowledges over the last 5 months drinking 15 packs a day at 8% alcohol (marcin josealfa). Vital signs 96.6 F-78-18-111/73-98%. Appearance was no acute distress. WBC 7.9-Hgb 13.8-HCT 39 Encounter for support and coordination of transition of care 05/05/2022 05/05/2022 patient called squad, transported to [facility] with lightheadedness and multiple syncopal episodes one of them resulting in injury to her right foot. GERD (gastroesophageal reflux disease) Hyperglycemia Hypertension Lung abscess ([facility]) saw Néstor Li and Dr. Zarate. Major depression Mild protein-calorie malnutrition (HCC) 08/26/2020 Obesity PE (pulmonary thromboembolism) ([facility]) PTSD (post-traumatic stress disorder) Snoring Tobacco use [...] Jenifer Yeager APRN.CNM documented in this encounter [facility] 10-14-2022 Note HNO ID: [id number] Author: Shruthi Keita MA Service: ? Author Type: Inspector Hairspring Truing Type: Progress Notes Filed: 10/14/2022 1:57 PM [...] and suicidal ideas. The patient is nervous/anxious. [facility] 10-14-2022 History of Present illness Narrative [...] not included. [facility] Name: Mariluz Garcia : 1970 Purpose: [...] Therapy (Aquatic) - completed her course at [facility]. Completed since July. Studies Obtained: [...] This information is taken directly from the line ordering clinician system. TECHNIQUE: Routine lumbosacral spine MR protocol [...] scoliotic curvature convex left visible on the occupational therapy department chair. [place] at L4-L5. Mild straightening of usual lumbar [...] impingement of the distal cord within the pphdh-md-csti. Paraspinal soft tissues: As above. No paraspinal [...] annulus, and facet degenerative change contributes to mihi-ko-rpyxedcc right foraminal narrowing. L4-L5: Disk bulging, loss [...] and assume there are 5 lumbar-type vertebrae. Skiing Instructor: CJ Transcribe Date/Time: Jun 05 2021 11:26A [...] holding to see if truly helping Functional Yazdanism: Home Exercise Program under provider supervisions - [...] [facility] documented in this encounter [facility] 10-07-2022 Miscellaneous Notes Spoke with patient [...] call and advise. documented in this encounter [facility] 10-06-2022 Note HNO ID: [id number] Author: Deloris Troy MD Service: ? Author Type: Physician Type: Progress Notes Filed: 10/14/2022 1:57 PM Note Text: [facility] Name: Mariluz Garcia : 1970 Purpose: [...] Therapy (Aquatic) - completed her course at [facility] [employer]. Completed since July. Studies Obtained: [...] This information is taken directly from the line ordering clinician system. TECHNIQUE: Routine lumbosacral spine MR protocol [...] scoliotic curvature convex left visible on the occupational therapy department chair. [place] at L4-L5. Mild straightening of usual lumbar lordosis and slightly kyphotic alignment at the level of L1 related to minimal old anterior wedging morphology of L1. Bone marrow signal/fracture: Advanced endplate degenerative change at L1-L2 through the L4 (more content not included)... [facility] 09-16-2022 Note HNO ID: [id number] Author: Jaimee Palomares PA-C Service: ? Author Type: Physician Airplane Fueler Type: Progress Notes Filed: 09/16/2022 3:41 PM [...] Drug use 08/15/2018 ecstacy Emphysema of lung ([facility]) Encounter for support and coordination of transition of care 05/15/2020 HOSPITAL/ER FOLLOW UP Which facility: [facility] Dates of visit: 05/10-05/13/2020 Preadmission evaluation: [...] of admission 05/01/2021 Date of discharge: Facility: [facility] 05/01/2021 presented to the emergency room with acute alcohol intoxication, initial alcohol level 7-8. Acknowledges over the last 5 months drinking 15 packs a day at 8% alcohol (nataidan samaniego). Vital signs 96.6 F-78-18-111/73-98%. Appearance was no acute distress. WBC 7.9-Hgb 13.8-HCT 39 Encounter for support and coordination of transition of care 05/05/2022 05/05/2022 patient called squad, transported to [facility] with lightheadedness and multiple syncopal episodes one of them resulting in injury to her right foot. GERD (gastroesophageal reflux disease) Hyperglycemia Hypertension Lung abscess (HCC) saw Néstor Li and Dr. Zarate. Major depression Mild protein-calorie malnutrition (HCC) 08/26/2020 Obesity PE (pulmonary thromboembolism) ([facility]) PTSD (post-traumatic stress disorder) Snoring Tobacco use [...] (Degenerative Disc Disease), Lumbar Emphysema of Lung ([facility]) Tobacco Use Disorder Hypertension Gerd [...] (Chronic Obstructive Pulm (more content not included)... [facility] 09-16-2022 History of Present illness Narrative [...] Drug use 08/15/2018 ecstacy Emphysema of lung ([facility]) Encounter for support and coordination of transition of care 05/15/2020 HOSPITAL/ER FOLLOW UP Which facility: [facility] Dates of visit: 05/10-05/13/2020 Preadmission evaluation: [...] of admission 05/01/2021 Date of discharge: Facility: [facility] 05/01/2021 presented to the emergency room with acute alcohol intoxication, initial alcohol level 7-8. Acknowledges over the last 5 months drinking 15 packs a day at 8% alcohol (nataidan samaniego). Vital signs 96.6 F-78-18-111/73-98%. Appearance was no acute distress. WBC 7.9-Hgb 13.8-HCT 39 Encounter for support and coordination of transition of care 05/05/2022 05/05/2022 patient called squad, transported to [facility] with lightheadedness and multiple syncopal episodes one of them resulting in injury to her right foot. GERD (gastroesophageal reflux disease) Hyperglycemia Hypertension Lung abscess ([facility]) saw Néstor Li and Dr. Zarate. Major depression Mild protein-calorie malnutrition (HCC) 08/26/2020 Obesity PE (pulmonary thromboembolism) ([facility]) PTSD (post-traumatic stress disorder) Snoring Tobacco use [...] Jaimee Palomares PA-C documented in this encounter [facility] 09-01-2022 Miscellaneous Notes TC to pt, [...] let us know. documented in this encounter [facility] 09-01-2022 Note HNO ID: [id number] Author: Jenifer Escalante RDMS Service: ? Author Type: Ecological Economist Type: Progress Notes Filed: 09/01/2022 2:51 PM [...] RDMS RVT September 01, 2022 2:51 PM [facility] 09-01-2022 Note HNO ID: [id number] Author: RT Angela(R) Service: ? Author Type: [...] RT Angela(R) September 01, 2022 1:58 PM [facility] 09-01-2022 History of Present illness Narrative [...] 2022 2:51 PM documented in this encounter [facility] 09-01-2022 History of Present illness Narrative [...] 2022 1:58 PM documented in this encounter [facility] 08-27-2022 Miscellaneous Notes Spoke to patient [...] below and patient is asking why did HOUSEKEEPER NANNY change her mind and now wants her [...] Trina Newton MA documented in this encounter [facility] 08-26-2022 Note HNO ID: [id number] Author: Urvashi Hughes APRN.TELEMARKETING FUNDRAISER Service: ? Author Type: Nurse Practitioner Type: Progress Notes Filed: 08/26/2022 1:20 PM Note Text: [facility] [place] Follow-up Visit Follow-up note August 26, 2022 [...] day by day. Feels both short and intermission coordinator memory have changed. States she can remember [...] Words, up to 2 trials: Face, Velvet, Buddhist, Yudith, Red (no points) 3/5 first try, [...] 1 error) (0/1) Serial subtraction by 7: [id number] (3 points for correct 4 or 5; 2 points for 2 or 3 correct; 1 point for 1 correct) [id number] (3/3) Language: repeat: I only know that [...] (2/2) Delayed recall: recall words: face, velvet, judaism, yudith, red (0-5) (5/5) Orientation: date(1), month(1), [...] care 05/15/2020 HOSPITAL/ER FOLLOW UP Which facility: [facility] Dates of visit: 05/10-05/13/2020 Preadmission evaluation: ER with right-sided abdominal pain over 2-1/2 hours, 10 out of 10. Worse (more content not included)... [facility] 08-26-2022 History of Present illness Narrative Images from the original note were not included. [facility] [place] Follow-up Visit Follow-up note August 26, 2022 [...] day by day. Feels both short and intermission coordinator memory have changed. States she can remember [...] Words, up to 2 trials: Face, Velvet, Buddhist, Yudith, Red (no points) 3/5 first try, [...] 1 error) (0/1) Serial subtraction by 7: [id number] (3 points for correct 4 or 5; 2 points for 2 or 3 correct; 1 point for 1 correct) [id number] (/) Language: repeat: I only know that [...] (2/2) Delayed recall: recall words: face, velvet, judaism, yudith, red (0-5) (10/22) Orientation: date(1), month(1), [...] Drug use 08/15/2018 ecstacy Emphysema of lung ([facility]) Encounter for support and coordination of transition of care 05/15/2020 HOSPITAL/ER FOLLOW UP Which facility: [facility] Dates of visit: 05/10-05/13/2020 Preadmission evaluation: [...] of admission 05/01/2021 Date of discharge: Facility: [facility] 05/01/2021 presented to the emergency room with acute alcohol intoxication, initial alcohol level 7-8. Acknowledges over the last 5 months drinking 15 packs a day at 8% alcohol (nataidan samaniego). Vital signs 96.6 F-78-18-111/73-98%. Appearance was no acute distress. WBC 7.9-Hgb 13.8-HCT 39 Encounter for support and coordination of transition of care 05/05/2022 05/05/2022 patient called squad, transported to [facility] with lightheadedness and multiple syncopal episodes one of them resulting in injury to her right foot. GERD (gastroesophageal reflux disease) Hyperglycemia Hypertension Lung abscess (HCC) saw Néstor Li and Dr. Zarate. Major depression Mild protein-calorie malnutrition (HCC) 08/26/2020 Obesity PE (pulmonary thromboembolism) ([facility]) PTSD (post-traumatic stress disorder) Snoring Tobacco use [...] Abs Lymph 1.00 - 4.00 k/uL 1.75 Cooke% % 9.1 Abs [place]oke <0.87 k/uL 0.67 Eosin% % 4.1 Abs [...] which included preparing to see the patient, fnkf-ji-uhyg patient care, completing clinical documentation, obtaining and/or reviewing separately obtained history, performing a medically appropriate examination, and counseling and educating the patient/family/caregiver. documented in this encounter [facility] 08-17-2022 Miscellaneous Notes Patient has been [...] Sruthi Piña LPN documented in this encounter [facility] 08-16-2022 Miscellaneous Notes Last OV: 08/16/22 Patient has been identified by name and date of : Yes Requested Prescriptions Pending Prescriptions Disp Refills Cholecalciferol, Vitamin D3, (VITAMIN D) 25 mcg (1,000 unit) cap 90 capsule 1 Sig: Take 1 capsule by mouth once daily. RX INSTRUCTIONS: Pharmacy initiated this request. No need to notify patient. Zoraida Garcia LPN documented in this encounter [facility] 08-16-2022 Note HNO ID: [id number] Author: Jaimee Palomares PA-C Service: ? Author Type: Physician Airplane Fueler Type: Progress Notes Filed: 08/16/2022 1:40 PM [...] disease) with chronic bronchitis (hcc) Centrilobar emphysema Tow Operator: none. Interval history: none. Current medications: [...] suspicious mass or adenopathy. 05/05/2022 CTA chest [facility] admit: Mild peribronchial thickening with layered [...] Radiculopathy, lumbar region Pain management Dr. Troy, [facility] Current medications: Baclofen 10mg twice a day as needed Pregabalin 150mg twice a day Consult PT Can't sleep. Shooting pain from left buttock down leg in to left foot. 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 Taking everything she can. Tearful, c/o no one treating her pain. Wants medication for pain. States she wants surgery: see neurosurgeon at [facility] 06/24/2022 CT cervical spine without contrast [facility] ED, comparison 05/05/2022: Degenerative changes of [...] of Onset Hy (more content not included)... [facility] 08-16-2022 Instructions Jaimee Palomares PA-C - 08/16/2022 11:47 AM EST See piriformis stretches; try 2-3 times a day. documented in this encounter [facility] 08-16-2022 History of Present illness Narrative [...] disease) with chronic bronchitis (hcc) Centrilobar emphysema Tow Operator: none. Interval history: none. Current medications: [...] Radiculopathy, lumbar region Pain management Dr. [place], [facility] Current medications: Baclofen 10mg twice a day as needed Pregabalin 150mg twice a day Consult PT Can't sleep. Shooting pain from left buttock down leg in to left foot. 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 Taking everything she can. Tearful, c/o no one treating her pain. Wants medication for pain. States she wants surgery: see neurosurgeon at [facility] 06/24/2022 CT cervical spine without contrast [facility] ED, comparison 05/05/2022: Degenerative changes of [...] care 05/15/2020 HOSPITAL/ER FOLLOW UP Which facility: [facility] Dates of visit: 05/10-05/13/2020 Preadmission evaluation: [...] of admission 05/01/2021 Date of discharge: Facility: [facility] 05/01/2021 presented to the emergency room with acute alcohol intoxication, initial alcohol level 7-8. Acknowledges over the last 5 months drinking 15 packs a day at 8% alcohol (natty daddy). Vital signs 96.6 F-78-18-111/73-98%. Appearance was no acute distress. WBC 7.9-Hgb 13.8-HCT 39 GERD (gastroesophageal reflux disease) Hyperglycemia Hypertension Lung abscess (HCC) saw Néstor Li and Dr. Zaraet. Major depression Mild protein-calorie malnutrition (HCC) 08/26/2020 Obesity PE (pulmonary thromboembolism) ([facility]) PTSD (post-traumatic stress disorder) Snoring Tobacco use [...] ICD9: 492.8, ICD10: J43.2 Stable, follows with [facility] 6. Alcohol abuse - ICD9: 305.00, [...] relief from epidural injections [facility]. Encouraged f/u with pain management Jaimee Palomares PA-C Some of this note may have been copied and pasted for the purpose of history context and comparison. documented in this encounter [facility] 08-12-2022 Miscellaneous Notes Patient phones requesting refills as follows: Requested Prescriptions Pending Prescriptions Disp Refills omeprazole (PRILOSEC) 20 mg capsule [Pharmacy Med Name: Omeprazole 20MG CPDR] 30 capsule 5 Sig: TAKE 1 CAPSULE BY MOUTH DAILY Please review and advise. Alison Demarco Ma documented in this encounter [facility] 08-05-2022 Miscellaneous Notes CORY: 07/29/22 NOV [...] Stephany Bowser Pss documented in this encounter [facility] 07-29-2022 Note HNO ID: [id number] Author: Memo Huber MD Service: ? Author [...] other than her urine is strong. No development eng issues. Mild occasional headaches. No neuro issues. Had ct of chest done in 06/10 Had mri of the brain in the fall. Ct of head and spine recently after a fall. Had development eng exam in 06/10 and has had a [...] care 05/15/2020 HOSPITAL/ER FOLLOW UP Which facility: [facility] Dates of visit: 05/10-05/13/2020 Preadmission evaluation: [...] of admission 05/01/2021 Date of discharge: Facility: [place] (more content not included)... [facility] 07-29-2022 Note HNO ID: [id number] Author: Shruthi Keita MA Service: ? Author Type: Inspector Hairspring Truing Type: Progress Notes Filed: 07/29/2022 1:46 PM [...] for suicidal ideas. The patient is nervous/anxious. [facility] 07-29-2022 Note HNO ID: [id number] Author: Deloris [place] MD Service: ? Author Type: Physician Type: Progress Notes Filed: 07/29/2022 1:46 PM Note Text: [facility] Today's Date: 07/29/2022 Last Visit: 06/03/2022 [...] DATE OF EXAM: Jun 05 2021 10:50AM [facility] 0303 - MRI LUMBAR SPINE WO [...] This information is taken directly from the line ordering clinician system. TECHNIQUE: Routine lumbosacral spine MR protocol [...] scoliotic curvature convex left visible on the occupational therapy department chair. [place] at L4-L5. Mild straightening of usual lumbar lordosis and slightly kyphotic alignment at the level of L1 related to minimal old anterior wedging morphology of L1. Bone marrow signal/fracture: Advanced endplate degenerative change at L1-L2 through the L4-L5 level. Type I endplate changes, which may contribute to mechanical back pain. Multilevel endplate irregularities which have (more content not included)... [facility] 07-21-2022 Miscellaneous Notes Fax written and sent to [place]. Please advise Lynda Mcgraw may d/c O2. Thanks, Faustino Palomares PA-C documented in this encounter [facility] 07-16-2022 Miscellaneous Notes Last Office Visit: [...] Last Labs: 05/07/2022 documented in this encounter [facility] 07-14-2022 Miscellaneous Notes Patient has been [...] Fadumo Romero, RN documented in this encounter [facility] 06-24-2022 Miscellaneous Notes Patient contacted Nurse Triage and was advised by them to immediately go the ER for evaluation. Niat Gabriel LPN June 24, 2022 10:59 AM [...] Please update patient. Thank you, Shira Kam APRN.TELEMARKETING FUNDRAISER Patient pharmacy called Baclofen directions does not match quantity patient will only have a 15 day supply with directions on the script, please advise. documented in this encounter [facility] 06-24-2022 Miscellaneous Notes Patient call in [...] left leg are bad Protocols used: Hip [id number] documented in this encounter [facility] 06-18-2022 Miscellaneous Notes Correct this was completed yesterday and the order was faxed. I think this was done. Thanks, Faustino Palomares PA-C Pt called in and reports she gets her incontinence supplies through [facility]. The phone number for them is [phone] fax # [phone]. She states they told her she needs [...] the providers office. documented in this encounter [facility] 06-18-2022 Miscellaneous Notes Opened in error. Fadumo Romero RN documented in this encounter [facility] 06-18-2022 Miscellaneous Notes [facility] Telephone Medication Refill Request Name/dose: Baclofen 10mg tablet Amount dispensed monthly: 60 Date last filled: 05/31/2022 Date last seen in office: 06/03/2022 Provider: Shira Kam Next scheduled visit: 07/05/2022 Pharmacy: [facility] [address] [place] [address] - [address] [phone] Nita Gabriel LPN June 18, 2022 11:10 AM documented in this encounter [facility] 06-16-2022 History of Present illness Narrative Pt arrived to [address] [place] [address] for Physical Therapy appointment. It was determined that the patient and the patient's referring provider were wanting a course of aquatic therapy for the patient's back pain. There is no aquatic therapy provided at this location, and so the patient was [facility]. This PT printed off the patient's PT order and handed it to her. The patient then left the PT department. James Cole PT documented in this encounter [facility] 06-16-2022 Miscellaneous Notes Waiting to hear [...] send order to. documented in this encounter [facility] 06-03-2022 Miscellaneous Notes Sent in consult to physical therapy, confirmation number is [id number] documented in this encounter [facility] 06-03-2022 Note HNO ID: [id number] Author: Shira Kam APRN.TELEMARKETING FUNDRAISER Service: ? Author Type: Nurse Practitioner Type: Progress Notes Filed: 06/03/2022 11:49 AM Note Text: [facility] Today's Date: 06/03/2022 Last Visit: Name: [...] from several providers 06/03/2022 by Shira Kam APRN.TELEMARKETING FUNDRAISER Allergies: ALLERGIES Allergen Reactions Fentanyl Other: See [...] This information is taken directly from the line ordering clinician system. TECHNIQUE: Routine lumbosacral spine MR protocol [...] scoliotic curvature convex left visible on the occupational therapy department chair. [place] at L4-L5. Mild straightening of usual lumbar [...] impingement of the distal cord within the elnvj-zy-hkjo. Paraspinal soft tissues: As above. No paraspinal masses are evident. Lower thoracic spine: Canal and foramina are normally patent at T11-T12. Facet degenerative changes are present at this level, but no significant impact on canal or foraminal patenc (more content not included)... [facility] 06-03-2022 Note HNO ID: [id number] Author: Shruthi Keita MA Service: ? Author Type: Inspector Hairspring Truing Type: Progress Notes Filed: 06/03/2022 11:49 AM [...] for suicidal ideas. The patient is nervous/anxious. [facility] 06-03-2022 Miscellaneous Notes 1.Are you diabetic [...] vaccine.) Noy Mcintosh documented in this encounter [facility] 06-03-2022 Instructions Shira Kam APRN.ALYSSA - 06/03/2022 11:32 AM EST Activity as tolerated Use Ice and/or heat as tolerated as needed documented in this encounter [facility] 06-03-2022 History of Present illness Narrative Images from the original note were not included. [facility] Today's Date: 06/03/2022 Last Visit: Name: [...] from several providers 06/03/2022 by Shira Kam APRN.TELEMARKETING FUNDRAISER Allergies: ALLERGIES Allergen Reactions Fentanyl Other: See [...] This information is taken directly from the line ordering clinician system. TECHNIQUE: Routine lumbosacral spine MR protocol [...] scoliotic curvature convex left visible on the occupational therapy department chair. [place] at L4-L5. Mild straightening of usual lumbar [...] impingement of the distal cord within the pmucr-tw-oels. Paraspinal soft tissues: As above. No paraspinal [...] annulus, and facet degenerative change contributes to cdbo-db-dzkuhvmd right foraminal narrowing. L4-L5: Disk bulging, loss [...] and assume there are 5 lumbar-type vertebrae. Skiing Instructor: PSCB Transcribe Date/Time: Jun 05 2021 11:26A [...] and an alternative NSAID, she declined Functional Yazdanism: Physical Therapy (Aquatic) Additional Studies: Referrals: Additional: [...] decision making from today's date. Shira Kam APRN.TELEMARKETING FUNDRAISER Pain Management [facility] Review of Systems Constitutional: Negative for activity [...] patient is nervous/anxious. 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: Sexual Activity: Not Currently; No [...] care 05/15/2020 HOSPITAL/ER FOLLOW UP Which facility: [facility] Dates of visit: 05/10-05/13/2020 Preadmission evaluation: [...] of admission 05/01/2021 Date of discharge: Facility: [facility] 05/01/2021 presented to the emergency [...] external genitalia normal, normal [place]'s glands, urethra, [place]'s glands, no vulvar lesions, no cervical lesions, [...] Jenifer Yeager APRN.CNM documented in this encounter [facility] 05-21-2022 Miscellaneous Notes Patient has been [...] Fadumo Romero RN documented in this encounter [facility] 05-20-2022 Miscellaneous Notes Patient has visit tomorrow with [employer] COUNCIL DIRECTOR she is going to take her cuff [...] new BP monitor. documented in this encounter [facility] 05-14-2022 History of Present illness Narrative 52 year old female with c/o hospital follow up 05/05/2022 patient called [facility], transported to [facility] with lightheadedness and multiple syncopal [...] care 05/15/2020 HOSPITAL/ER FOLLOW UP Which facility: [facility] Dates of visit: 05/10-05/13/2020 Preadmission evaluation: [...] of admission 05/01/2021 Date of discharge: Facility: [facility] 05/01/2021 presented to the emergency [...] malnutrition (HCC) 08/26/2020 Obesity PE (pulmonary thromboembolism) ([facility]) PTSD (post-traumatic stress disorder) Snoring Tobacco use [...] months. Educated on lung nodule recurrence in [place]. - CT CHEST WO IVCON 3. Syncope, [...] Jaimee Palomares PA-C documented in this encounter [facility] 05-11-2022 Miscellaneous Notes TC to patient [...] Memo Leahy MD documented in this encounter [facility] 05-07-2022 History of Present illness Narrative [...] anxiety and hearing voices. Pt was in [facility] ER yesterday due to syncope, hypotension [...] and bkwd) Sentence repeat: 07/22 Serial 7s: [id number] 08/20 Similar objects: 07/22 Orientation: May 07, [...] care 05/15/2020 HOSPITAL/ER FOLLOW UP Which facility: [facility] Dates of visit: 05/10-05/13/2020 Preadmission evaluation: [...] of admission 05/01/2021 Date of discharge: Facility: [facility] 05/01/2021 presented to the emergency [...] malnutrition (HCC) 08/26/2020 Obesity PE (pulmonary thromboembolism) ([facility]) PTSD (post-traumatic stress disorder) Snoring Tobacco use [...] which included preparing to see the patient, lssb-kw-ydfv patient care, completing clinical documentation, obtaining and/or reviewing separately obtained history, performing a medically appropriate examination, counseling and educating the patient/family/caregiver, ordering medications, tests, or procedures, independently interpreting results (not separately reported), and communicating results to the patient/family/caregiver. documented in this encounter [facility] 05-07-2022 Miscellaneous Notes Patient called in leaving a voicemail asking for a call back. Nothing was stated what it was about. Sheila Granado documented in this encounter [facility] 04-23-2022 Miscellaneous Notes Patient has been [...] Maribell Baltazar LPN documented in this encounter [facility] 04-19-2022 Miscellaneous Notes Pt calls to report she takes 2-3 ibuprofen 800 tabs daily but only gets prescribed #30 rf 1 so pt runs out of medication quickly. Pt reports she did not get any ibuprofen in this month's delivery from [facility] and was advised that she needed a [...] Zoraida Garcia LPN documented in this encounter [facility] 04-01-2022 Instructions M Cici Palomares PA-C - 04/01/2022 9:37 AM EDT Desvenlafaxine: Patient drug information Access [employer] Online for additional drug information, tools, and databases. Copyright 9937-2302 [employer]. All rights reserved. (For additional information see [...] much, and when it happened. Last Reviewed [id number] Consumer Information Use and Disclaimer This information [...] of this information is governed by the [employer] End User License Agreement, available at https://www.Avtal24.Healthy Harvest/en/ solutions/b-datum/about/garcia. 2020 [employer]. and its affiliates and/or licensors. All rights reserved. Use of [employer] is subject to the Subscription and License Agreement. Topic 41845 Version 147.0 documented in this encounter [facility] 04-01-2022 History of Present illness Narrative [...] care 05/15/2020 HOSPITAL/ER FOLLOW UP Which facility: [facility] Dates of visit: 05/10-05/13/2020 Preadmission evaluation: [...] of admission 05/01/2021 Date of discharge: Facility: [facility] 05/01/2021 presented to the emergency [...] Jaimee Palomares PA-C documented in this encounter [facility] 03-26-2022 Miscellaneous Notes Refill approved. Has appointment in April. Deloris [place] III, [place], [place] [facility] Telephone Medication Refill Request Name/dose: BACLOFEN 10 Amount dispensed monthly: 60 Date last filled: 01/01/22 Date last seen in office: 04/16/2021 Provider: Deloris [place] MD Next scheduled visit: 05/06/22 Pharmacy: [facility] - [address] [place] [address] - [address] [phone] [address] [place] [address] Odalys Brizuela MA documented in this encounter [facility] 03-25-2022 Miscellaneous Notes Patient arrived 17 [...] which was the first available at the [place] [facility]. documented in this encounter [facility] 03-17-2022 History of Present illness Narrative [...] care 05/15/2020 HOSPITAL/ER FOLLOW UP Which facility: [facility] Dates of visit: 05/10-05/13/2020 Preadmission evaluation: [...] of admission 05/01/2021 Date of discharge: Facility: [facility] 05/01/2021 presented to the emergency [...] TIME: 11:11 AM documented in this encounter [facility] 03-15-2022 Miscellaneous Notes Pharmacy calls in requesting the following refill(s): Requested Prescriptions Pending Prescriptions Disp Refills ibuprofen (MOTRIN) 800 mg tablet 30 tablet 1 Sig: Take 1 tablet by mouth every 8 hours as needed for pain. Take with food. documented in this encounter [facility] 03-11-2022 Miscellaneous Notes Patient approved for Hep C treatment through medicaid, will ship from [facility]. Patient to call when receives medication in hand to review treatment protocol and follow up labs. Requested Prescriptions Pending Prescriptions Disp Refills sofosbuvir-velpatasvir 400-100 mg 28 tablet 2 Sig: Take one tablet by mouth, with or without food, once daily same time of day Bharti Sherman CMA documented in this encounter [facility] 02-26-2022 Miscellaneous Notes Patient has been [...] Jaimee Foster RN documented in this encounter [facility] 02-25-2022 History of Present illness Narrative 51 year old female with c/o low BP, dizziness which start Tuesday. 17 minutes late for appointment. 02/24/2022 transforaminal injection L5-S1 bilateral Dr. [place]. Was dizzy with low BP but had procedure anyway. Stumbled in their office but didn't pass out. Was NPO after midnight. Sent from their office to the emergency department 02/24/2022 arrived at [facility] emergency department with complaint of [...] care 05/15/2020 HOSPITAL/ER FOLLOW UP Which facility: [facility] Dates of visit: 05/10-05/13/2020 Preadmission evaluation: [...] of admission 05/01/2021 Date of discharge: Facility: [facility] 05/01/2021 presented to the emergency [...] malnutrition (HCC) 08/26/2020 Obesity PE (pulmonary thromboembolism) ([facility]) PTSD (post-traumatic stress disorder) Snoring Tobacco use [...] Received no reply to staff message to voice over artist Dr. Josué Blevins: We will have appointment [...] Jaimee Palomares PA-C documented in this encounter [facility] 02-24-2022 Miscellaneous Notes Notified pt of message below. Left appt as scheduled with Faustino at current time. Will route to Faustino to notify him of what's going on. Liliana London Ma I would go today to er Patient calling to say she had spinal injection done at [facility] today and her blood pressure was [...] Laina Orellana RN documented in this encounter [facility] 02-24-2022 Nurse Note Patient advised to [...] is eating crackers. documented in this encounter [facility] 02-24-2022 Miscellaneous Notes OPERATIVE/PROCEDURE REPORT LOG ID: [id number] SURGERY/PROCEDURE DATE: 02/24/2022 INCISION/PROCEDURE START TIME: 10:05 AM INCISION CLOSE/PROCEDURE END TIME: 10:19 AM SURGEON(S)/PROCEDURALIST(S) AND ARTS THERAPIST(S): Surgeon(s) and Role: * Deloris [place] MD [...] TIME: 10:21 AM documented in this encounter [facility] 02-24-2022 History and physical note UPDATED [...] TIME: 9:46 AM documented in this encounter [facility] 02-23-2022 Miscellaneous Notes I have attempted to contact this patient by phone, Left brief message on cell voicemail stating to give us a call back at [phone] Laura Pena documented in this encounter [facility] 02-17-2022 Miscellaneous Notes Order signed by Dr. Huber and faxed back to [facility]. Suzie [place] documented in this encounter [facility] 02-11-2022 History of Present illness Narrative 51 year old female with c/o here for medication follow up. 01/01/2022 tripped and fell landing on her outstretched right wrist, with deformity she went to [facility] ED where x-rays confirmed fracture right distal radius Palomares's fracture with comminuted intra-articular distal radial fracture and angulated fragment, wrist was reduced under anesthesia. She was splinted and referred to [facility] Dr. Prasanth Jones. Started rehab tomorrow [...] 6 - 29 U/L 16 Reference ID [id number] Footnote SEE NOTE Component Latest Ref Rng [...] Centrilobular emphysema (hcc) Pe (pulmonary thromboembolism) (hcc) Tow Operator: Susu . Interval history: no recent [...] Hair falling out Sees Dr. Renata Turner [facility] Stress incontinence Current medications: Bacterial vaginosis Not [...] Drug use 08/15/2018 ecstacy Emphysema of lung ([facility]) Encounter for support and coordination of transition of care 05/15/2020 HOSPITAL/ER FOLLOW UP Which facility: [facility] Dates of visit: 05/10-05/13/2020 Preadmission evaluation: [...] of admission 05/01/2021 Date of discharge: Facility: [facility] 05/01/2021 presented to the emergency room with acute alcohol intoxication, initial alcohol level 7-8. Acknowledges over the last 5 months drinking 15 packs a day at 8% alcohol (natty daddy). Vital signs 96.6 F-78-18-111/73-98%. Appearance was no acute distress. WBC 7.9-Hgb 13.8-HCT 39 GERD (gastroesophageal reflux disease) Hyperglycemia Hypertension Lung abscess ([facility]) saw Néstor Li and Dr. Zarate. Major depression Mild protein-calorie malnutrition (HCC) 08/26/2020 Obesity PE (pulmonary thromboembolism) ([facility]) PTSD (post-traumatic stress disorder) Snoring Tobacco use [...] (HCC) - ICD9: 297.1, ICD10: F22 Sees [facility], stable- stopped latuda, has follow up - CBC + DIFF - COMP METABOLIC PANEL - TSH BLD 16. Stress incontinence - ICD9: [id number], ICD10: N39.3 Oxybutynin did not help. Discussed [...] Jaimee Palomares PA-C documented in this encounter [facility] 02-05-2022 Instructions Abi Davey PA-C - [...] types of injections. documented in this encounter [facility] 02-05-2022 History of Present illness Narrative [...] or double vision) Respiratory: Negative (No Cough, Tmsetkcxk-ee-ulwqiu, Dyspnea on exertion, wheezing) Cardiovascular: Negative (No [...] ([place]) Pain Management [facility] documented in this encounter [facility] 01-29-2022 Miscellaneous Notes Patient has been [...] Maribell Baltazar LPN documented in this encounter [facility] 01-29-2022 Miscellaneous Notes Patient call and LVM stated she missed her appt on 01/[address] [place] and needs to reschedule. I have attempted to contact this patient by phone, Left brief message on cell voicemail stating to call back to reschedule. Cris Lopez Molding Room Supervisor to Dr. Roy, Dr. Palma, Workers Compensation [facility] P: [id number] / F: [phone] / documented in this encounter [facility] 01-27-2022 Instructions Abi Davey PA-C - [...] types of injections. documented in this encounter [facility] 01-27-2022 History of Present illness Narrative [...] or double vision) Respiratory: Negative (No Cough, Bzfxyfppo-ky-djbhax, Dyspnea on exertion, wheezing) Cardiovascular: Negative (No [...] ([place]) Pain [facility] documented in this encounter [facility] 01-18-2022 History of Present illness Narrative [...] external genitalia normal, normal Bartholin's glands, urethra, [place]'s glands, no vulvar lesions, good vaginal support, [...] 4 - Moderate documented in this encounter [facility] 01-04-2022 Miscellaneous Notes Please change her [...] virtual appointment tomorrow. PDMP reviewed, had 10 Bard on 01/01. Will write 28 Bard , must last a full 7 days. [...] advise. Laura Pena documented in this encounter [facility] 01-04-2022 Miscellaneous Notes Called patient to inform her, mailed her the numbers for the other home health agencies per her request Please let the pt know Denice Gr APRN.CNP Thank you for the referral of your patient to [facility]. At this time, we are unable to accommodate your patient s needs in a safe and timely fashion. In order to help your patient receive quality home care, we have included reputable agencies that service this area: [facility] or [phone]. OR [facility] Phone Jen Please contact these agencies and they will work with your patient to arrange timely services. documented in this encounter [facility] 12-25-2021 Miscellaneous Notes I scanned fibroscan results from [facility] today for you to review. Emma Torres Fibroscan reviewed. F2S2 Bharti - can you check on the Hep C treatment status? Josué Blevins MD documented in this encounter [facility] 12-15-2021 Instructions Blaine Ann MD - 12/15/2021 8:47 AM EDT It was great to see you today! You have urge and stress incontinence. Lets try a bladder relaxant and Kegel exercises. I want you to see Dorothy in 6 weeks to see how things stand. documented in this encounter [facility] 12-15-2021 History of Present illness Narrative Images from the original note were not included. Pending Sale To [facility] NEW PATIENT ENCOUNTER HISTORY OF PRESENT ILLNESS: [...] care 05/15/2020 HOSPITAL/ER FOLLOW UP Which facility: [facility] Dates of visit: 05/10-05/13/2020 Preadmission evaluation: [...] of admission 05/01/2021 Date of discharge: Facility: [facility] 05/01/2021 presented to the emergency room with acute alcohol intoxication, initial alcohol level 7-8. Acknowledges over the last 5 months drinking 15 packs a day at 8% alcohol (joseadian samaniego). Vital signs 96.6 F-78-18-111/73-98%. Appearance was [...] by contextual derivation. documented in this encounter [facility] 12-10-2021 Miscellaneous Notes Patient has been [...] Fadumo Romero, RN documented in this encounter [facility] 12-10-2021 Miscellaneous Notes 1.Are you diabetic [...] vaccine.) Jenifer Sherman documented in this encounter [facility] 12-09-2021 Miscellaneous Notes Please see below regarding home care Denice Gr APRN.TELEMARKETING FUNDRAISER Thank you for the referral of your patient to [facility]. At this time, we are at capacity and are unable to accept your patient. In order to help your patient receive quality home care, we have included reputable agencies that service this area: [facility] [phone] or [facility] [phone]. Please contact this agency and they will work with your patient to arrange timely services. Thank you, SHERLEY Castorena 12/09/2021 3:03 PM documented in this encounter [facility] 12-09-2021 Instructions Denice Gr APRN.ALYSSA - 12/09/2021 2:51 PM EDT Ice and heat as tolerated Activity as tolerated documented in this encounter [facility] 12-07-2021 History of Present illness Narrative [...] and assume there are 5 lumbar-type vertebrae. Skiing Instructor: PSCB Transcribe Date/Time: Jun 05 2021 11:26A Dictated by : GITA MALHOTRA MD This examination was interpreted and the report reviewed and electronically signed by: GITA MALHOTRA MD on Jun 05 2021 11:36AM EST Results-Findings * * *Final Report* * * DATE OF EXAM: Jun 05 2021 10:50AM [facility] 0303 - MRI LUMBAR SPINE WO [...] This information is taken directly from the line ordering clinician system. TECHNIQUE: Routine lumbosacral spine MR protocol [...] scoliotic curvature convex left visible on the occupational therapy department chair. [place] at L4-L5. Mild straightening of usual lumbar [...] impingement of the distal cord within the rjupe-gz-vuzc. Paraspinal soft tissues: As above. No paraspinal [...] annulus, and facet degenerative change contributes to huuc-zg-ywnestmx right foraminal narrowing. L4-L5: Disk bulging, loss [...] Impression IMPRESSION: Spondylosis of the cervical spine. Skiing Instructor: VTL GroupB Transcribe Date/Time: Nov 12 2021 4:07P Dictated [...] Total Time Spent: 15 minutes Denice Gr APRN.TELEMARKETING FUNDRAISER documented in this encounter [facility] 12-07-2021 Miscellaneous Notes Spoke with Mariluz, gave her the number to schedule her fibroscan at [facility], and let her know she can get her labs done at the [facility] for Hep C meds. Bharti Sherman CMA documented in this encounter [facility] 11-27-2021 Nurse Note Pt states readines for discharge. Dr. Blevins at bedside speaking with mario. documented in this encounter [facility] 11-27-2021 History and physical note HISTORY [...] Josué Blevins MD documented in this encounter [facility] 11-23-2021 Miscellaneous Notes Faxed over fibroscan to [facility]. Asked for them to contact patient directly to get scheduled. Sydney Bowens documented in this encounter [facility] 11-23-2021 Instructions Josué Blevins MD - [...] If you do not have a responsible goat driver (family member or friend) with you [...] exam. 2 05/2019 documented in this encounter [facility] 11-23-2021 History of Present illness Narrative CHIEF COMPLAINT: Patient presents with: Chronic Hep C: Labs 11/12/21 This consult was requested by Jaimee Palomares PA-C for an opinion regarding hepatitis C. My final recommendations will be communicated to the requesting health care provider by way of the shared medical record for internal providers or letter via the [employer] for external providers. HPI: Mariluz [...] care 05/15/2020 HOSPITAL/ER FOLLOW UP Which facility: [facility] Dates of visit: 05/10-05/13/2020 Preadmission evaluation: [...] of admission 05/01/2021 Date of discharge: Facility: [facility] 05/01/2021 presented to the emergency [...] normal coronary arteries HYSTERECTOMY HX 2004 menorrhagia. JNOAS/right oophorectomy. bowel adhesion HYSTERECTOMY HX 1989' LAPAROSCOPY [...] Jaimee Palomares PA-C documented in this encounter [facility] 11-12-2021 Instructions Jaimee Palomares PA-C - [...] holding your breath. documented in this encounter [facility] 11-12-2021 History of Present illness Narrative 51 year old female with c/o follow up Was in ER last month: 10/12/2021 presented [facility] emergency room with complaint of chest pain via EMS. Worsening over 4 days, sharp, left-sided, worse with overhead movement and certain arm movements as well as taking deep breath. Physical exam: Vital signs 98.6 F-81-14-150/103-97% RA. Described as well-nourished and developed, no acute distress, chest wall negative for tenderness. Lab: CBC within normal limits except Hgb 15.7, lymph percent 15.9, [place] 14.0, eos 5.3. D-dimer elevated at 0.68. Chemistry profile within normal limits. Troponin 1 within normal limits at 4. Chest x-ray: No acute findings. Chest CTA: No evidence of pulmonary embolus, positive for pulmonary emphysema. EKG: Normal sinus rhythm ventricular rate 78, no ischemic changes. Patient discharged on prednisone 60 mg daily x5 days, naproxen 500 mg p.o. twice daily. Moved to [place] from [facility]. Current concerns: Hips are bothering her. After [...] Benztropine 0.5 mg daily at bedtime Psychiatry [facility]. Feels stable overall PHQ-9 09/26/2018 02/13/2019 [...] care 05/15/2020 HOSPITAL/ER FOLLOW UP Which facility: [facility] Dates of visit: 05/10-05/13/2020 Preadmission evaluation: [...] of admission 05/01/2021 Date of discharge: Facility: [facility] 05/01/2021 presented to the emergency [...] Zarate. Major depression Obesity PE (pulmonary thromboembolism) ([facility]) PTSD (post-traumatic stress disorder) Snoring Tobacco use [...] with x-rays. 8. Stress incontinence - ICD9: [id number], ICD10: N39.3 - CONSULT TO PHYSICAL THERAPY [...] vaccine - ICD9: V04.89, ICD10: Z23 - Talaentia COVID-19 VACCINE, AGE 12+ YR (PURPLE TOP) 12. Screening for colon cancer - ICD9: V76.51, ICD10: Z12.11 - CONSULT TO GENERAL SURGERY Follow-up 6 months and as needed. Jaimee Palomares PA-C documented in this encounter [facility] 11-06-2021 Miscellaneous Notes Schedulers please assist [...] Laisha Ayana Pss documented in this encounter [facility] 11-06-2021 Miscellaneous Notes [facility] 07/23/21 NOV no [...] patient. Laisha Castañeda documented in this encounter [facility] 10-23-2021 Miscellaneous Notes Thanks for the update. Baclofen for 90 days sent to pharmacy (including refills), she will need follow-up prior to next script. Deloris Troy III, MD, [place] [facility] Telephone Medication Refill Request Name/dose: Baclofen [...] advise. Jenifer Sherman documented in this encounter [facility] 10-21-2021 Miscellaneous Notes No Show Documentation Mariluz Garcia no showed for an appointment on 10/21/21 with Denice Gr APRN.TELEMARKETING FUNDRAISER at 7:45. She was scheduled for follow [...] 2021 4:31 PM documented in this encounter [facility] 10-12-2021 Miscellaneous Notes Protocol recommends call [...] 11. : Pt denies. Protocols used: CHEST [id number] documented in this encounter [facility] 10-07-2021 Miscellaneous Notes Received and placed on providers desk to sign. We did not get all forms with the first fax. [facility] calling to say they are faxing CMN to PCP office to be completed for order for Adult Diapers/Pads. Laina Orellana RN documented in this encounter [facility] 10-05-2021 Miscellaneous Notes Pt. Previously scheduled 11/10. Will close TE at this time. Please schedule: Telephone on 10/04/21 [facility] DIAGNOST[facility] BILAT US BREAST LTD LT US BREAST LTD RT Thanks, Faustino Palomares PA-C documented in this encounter [facility] 10-02-2021 Miscellaneous Notes Patient was notified [...] call to patient.. documented in this encounter [facility] 10-01-2021 Miscellaneous Notes October 01, 2021 PID: [id number] Mariluz Garcia [address] [address] Dear Ms. Garcia, Your recent breast imaging exam on 10/01/2021 showed a possible finding that requires additional imaging studies for a complete evaluation. Most such findings are probably benign (not cancer). If you have a healthcare provider who ordered/prescribed your screening mammogram: Please call [phone] or [phone] to schedule an appointment for your additional [...] and reports are kept on file at [facility] as part of your permanent medical record, and are available for your continuing care. Thank you for allowing us to help in meeting your health care needs. Sincerely, Dr. Loredo Interpreting Radiologist [facility] (Additional imaging) documented in this encounter [facility] 10-01-2021 History of Present illness Narrative [...] 2021 12:44 PM documented in this encounter [facility] 09-21-2021 Miscellaneous Notes Please advise insurance covers symbicort, similar to Breo The following approved medication requests have been transmitted electronically. Signed Prescriptions Disp Refills budesonide-formoterol (SYMBICORT) 160-4.5 mcg/actuation inhaler 1 Each 5 Sig: Inhale 2 Puffs as instructed twice daily. Authorizing Provider: Jaimee PALOMARES PA-C [facility] calling to state patient's Breo Ellipta is needing a pre-auth. Pharmacy states either symbicort or Dulera is covered by patient's insurance if provider would like to switch. Please advise [facility] at [phone]. Thank you. documented in this encounter [facility] 09-11-2021 Miscellaneous Notes Patient has been identified by name and date of : Yes Pending Prescriptions Disp Refills CHOLECALCIFEROL (VITAMIN D3) 25 MCG (1,000 UNIT) CAPSULE 90 capsule 1 Sig: Take 1 capsule by mouth once daily. NATALIO: No CORY-07/23/21 Labs-01/16/21 NOV-none RX INSTRUCTIONS: Pharmacy initiated this request. No need to notify patient. Stephany Bowser Pss documented in this encounter [facility] 07-17-2021 Miscellaneous Notes Sw spoke with patient in regarding patient needs. Patient reports that she can use a home delivery driver. Patient reports that she has back pain and is unable to stand for long periods of time. Needs assistance with cooking, cleaning, grooming. Sw briefly discussed [facility]. Patient notes that she had home delivery driver in the past. The end and services [...] mail her number. Sw will mail patient [facility]aiver application with contact number. Called Pt and let her know that Stephany from [facility] had informed us that she had [...] need for help in the future. Stephany JAVIERhoisting engineer pile driving Care Sal from [facility] called in and reports Pt had been in [facility] 04/30/22-05/02/22. Then she went to the [address] [place] [phone] from 05/03/22-07/02/21 for a substance use disorder [...] provider was 01/17/12 documented in this encounter [facility] documented as of this encounter (statuses as of 09/11/2021) [facility] History of Past illness Narrative* Problem Noted Date Resolved Date Encounter for support and coordination of transi tion of care 05/02/2021 07/23/2021 Overview: Hospital discharge summary: Date of admission 05/01/2021 Date of discharge: Facility: [facility] 05/01/2021 presented to the emergency [...] 05/02/2021 Overview: HOSPITAL/ER FOLLOW UP Which facility: [facility] Dates of visit: 05/10-05/13/2020 Preadmission evaluation: [...] of this encounter (statuses as of 09/21/2021) [facility] History of Past illness Narrative* Problem Noted Date Resolved Date Encounter for support and coordination of transi tion of care 05/02/2021 07/23/2021 Overview: Hospital discharge summary: Date of admission 05/01/2021 Date of discharge: Facility: [facility] 05/01/2021 presented to the emergency [...] 05/02/2021 Overview: HOSPITAL/ER FOLLOW UP Which facility: [facility] Dates of visit: 05/10-05/13/2020 Preadmission evaluation: [...] of this encounter (statuses as of 09/22/2021) [facility] History of Past illness Narrative* Problem Noted Date Resolved Date Encounter for support and coordination of transi tion of care 05/02/2021 07/23/2021 Overview: Hospital discharge summary: Date of admission 05/01/2021 Date of discharge: Facility: [facility] 05/01/2021 presented to the emergency [...] 05/02/2021 Overview: HOSPITAL/ER FOLLOW UP Which facility: [facility] Dates of visit: 05/10-05/13/2020 Preadmission evaluation: [...] of this encounter (statuses as of 10/02/2021) [facility] History of Past illness Narrative* Problem Noted Date Resolved Date Encounter for support and coordination of transi tion of care 05/02/2021 07/23/2021 Overview: Hospital discharge summary: Date of admission 05/01/2021 Date of discharge: Facility: [facility] 05/01/2021 presented to the emergency [...] 05/02/2021 Overview: HOSPITAL/ER FOLLOW UP Which facility: [facility] Dates of visit: 05/10-05/13/2020 Preadmission evaluation: [...] of this encounter (statuses as of 10/02/2021) [facility] History of Past illness Narrative* Problem Noted Date Resolved Date Encounter for support and coordination of transi tion of care 05/02/2021 07/23/2021 Overview: Hospital discharge summary: Date of admission 05/01/2021 Date of discharge: Facility: [facility] 05/01/2021 presented to the emergency [...] 05/02/2021 Overview: HOSPITAL/ER FOLLOW UP Which facility: [facility] Dates of visit: 05/10-05/13/2020 Preadmission evaluation: [...] of this encounter (statuses as of 10/03/2021) [facility] History of Past illness Narrative* Problem Noted Date Resolved Date Encounter for support and coordination of transi tion of care 05/02/2021 07/23/2021 Overview: Hospital discharge summary: Date of admission 05/01/2021 Date of discharge: Facility: [facility] 05/01/2021 presented to the emergency [...] 05/02/2021 Overview: HOSPITAL/ER FOLLOW UP Which facility: [facility] Dates of visit: 05/10-05/13/2020 Preadmission evaluation: [...] of this encounter (statuses as of 10/05/2021) [facility] History of Past illness Narrative* Problem Noted Date Resolved Date Encounter for support and coordination of transi tion of care 05/02/2021 07/23/2021 Overview: Hospital discharge summary: Date of admission 05/01/2021 Date of discharge: Facility: [facility] 05/01/2021 presented to the emergency [...] 05/02/2021 Overview: HOSPITAL/ER FOLLOW UP Which facility: [facility] Dates of visit: 05/10-05/13/2020 Preadmission evaluation: [...] of this encounter (statuses as of 10/08/2021) [facility] History of Past illness Narrative* Problem Noted Date Resolved Date Encounter for support and coordination of transi tion of care 05/02/2021 07/23/2021 Overview: Hospital discharge summary: Date of admission 05/01/2021 Date of discharge: Facility: [facility] 05/01/2021 presented to the emergency [...] 05/02/2021 Overview: HOSPITAL/ER FOLLOW UP Which facility: [facility] Dates of visit: 05/10-05/13/2020 Preadmission evaluation: [...] of this encounter (statuses as of 10/21/2021) [facility] History of Past illness Narrative* Problem Noted Date Resolved Date Encounter for support and coordination of transi tion of care 05/02/2021 07/23/2021 Overview: Hospital discharge summary: Date of admission 05/01/2021 Date of discharge: Facility: [facility] 05/01/2021 presented to the emergency [...] 05/02/2021 Overview: HOSPITAL/ER FOLLOW UP Which facility: [facility] Dates of visit: 05/10-05/13/2020 Preadmission evaluation: [...] of this encounter (statuses as of 10/21/2021) [facility] History of Past illness Narrative* Problem Noted Date Resolved Date Encounter for support and coordination of transi tion of care 05/02/2021 07/23/2021 Overview: Hospital discharge summary: Date of admission 05/01/2021 Date of discharge: Facility: [facility] 05/01/2021 presented to the emergency [...] 05/02/2021 Overview: HOSPITAL/ER FOLLOW UP Which facility: [facility] Dates of visit: 05/10-05/13/2020 Preadmission evaluation: [...] of this encounter (statuses as of 10/23/2021) [facility] History of Past illness Narrative* Problem Noted Date Resolved Date Encounter for support and coordination of transi tion of care 05/02/2021 07/23/2021 Overview: Hospital discharge summary: Date of admission 05/01/2021 Date of discharge: Facility: [facility] 05/01/2021 presented to the emergency [...] 05/02/2021 Overview: HOSPITAL/ER FOLLOW UP Which facility: [facility] Dates of visit: 05/10-05/13/2020 Preadmission evaluation: [...] of this encounter (statuses as of 11/06/2021) [facility] History of Past illness Narrative* Problem Noted Date Resolved Date Encounter for support and coordination of transi tion of care 05/02/2021 07/23/2021 Overview: Hospital discharge summary: Date of admission 05/01/2021 Date of discharge: Facility: [facility] 05/01/2021 presented to the emergency [...] 05/02/2021 Overview: HOSPITAL/ER FOLLOW UP Which facility: [facility] Dates of visit: 05/10-05/13/2020 Preadmission evaluation: [...] of this encounter (statuses as of 11/06/2021) [facility] History of Past illness Narrative* Problem Noted Date Resolved Date Encounter for support and coordination of transi tion of care 05/02/2021 07/23/2021 Overview: Hospital discharge summary: Date of admission 05/01/2021 Date of discharge: Facility: [facility] 05/01/2021 presented to the emergency [...] 05/02/2021 Overview: HOSPITAL/ER FOLLOW UP Which facility: [facility] Dates of visit: 05/10-05/13/2020 Preadmission evaluation: [...] of this encounter (statuses as of 11/11/2021) [facility] History of Past illness Narrative* Problem Noted Date Resolved Date Encounter for support and coordination of transi tion of care 05/02/2021 07/23/2021 Overview: Hospital discharge summary: Date of admission 05/01/2021 Date of discharge: Facility: [facility] 05/01/2021 presented to the emergency [...] 05/02/2021 Overview: HOSPITAL/ER FOLLOW UP Which facility: [facility] Dates of visit: 05/10-05/13/2020 Preadmission evaluation: [...] of this encounter (statuses as of 11/13/2021) [facility] History of Past illness Narrative* Problem Noted Date Resolved Date Encounter for support and coordination of transi tion of care 05/02/2021 07/23/2021 Overview: Hospital discharge summary: Date of admission 05/01/2021 Date of discharge: Facility: [facility] 05/01/2021 presented to the emergency [...] 05/02/2021 Overview: HOSPITAL/ER FOLLOW UP Which facility: [facility] Dates of visit: 05/10-05/13/2020 Preadmission evaluation: [...] of this encounter (statuses as of 11/23/2021) [facility] History of Past illness Narrative* Problem Noted Date Resolved Date Encounter for support and coordination of transi tion of care 05/02/2021 07/23/2021 Overview: Hospital discharge summary: Date of admission 05/01/2021 Date of discharge: Facility: [facility] 05/01/2021 presented to the emergency [...] 05/02/2021 Overview: HOSPITAL/ER FOLLOW UP Which facility: [facility] Dates of visit: 05/10-05/13/2020 Preadmission evaluation: [...] of this encounter (statuses as of 11/23/2021) [facility] History of Past illness Narrative* Problem Noted Date Resolved Date Encounter for support and coordination of transi tion of care 05/02/2021 07/23/2021 Overview: Hospital discharge summary: Date of admission 05/01/2021 Date of discharge: Facility: [facility] 05/01/2021 presented to the emergency [...] 05/02/2021 Overview: HOSPITAL/ER FOLLOW UP Which facility: [facility] Dates of visit: 05/10-05/13/2020 Preadmission evaluation: [...] of this encounter (statuses as of 11/26/2021) [facility]11-13-2021 History of Past illness Narrative* Problem Noted Date Resolved Date Encounter for support and coordination of transi tion of care 05/02/2021 07/23/2021 Overview: Hospital discharge summary: Date of admission 05/01/2021 Date of discharge: Facility: [facility] 05/01/2021 presented to the emergency [...] 05/02/2021 Overview: HOSPITAL/ER FOLLOW UP Which facility: [facility] Dates of visit: 05/10-05/13/2020 Preadmission evaluation: [...] of this encounter (statuses as of 11/28/2021) [facility]11-13-2021 History of Past illness Narrative* Problem Noted Date Resolved Date Encounter for support and coordination of transi tion of care 05/02/2021 07/23/2021 Overview: Hospital discharge summary: Date of admission 05/01/2021 Date of discharge: Facility: [facility] 05/01/2021 presented to the emergency [...] 05/02/2021 Overview: HOSPITAL/ER FOLLOW UP Which facility: [facility] Dates of visit: 05/10-05/13/2020 Preadmission evaluation: [...] of this encounter (statuses as of 12/07/2021) [facility]11-13-2021 History of Past illness Narrative* Problem Noted Date Resolved Date Encounter for support and coordination of transi tion of care 05/02/2021 07/23/2021 Overview: Hospital discharge summary: Date of admission 05/01/2021 Date of discharge: Facility: [facility] 05/01/2021 presented to the emergency [...] 05/02/2021 Overview: HOSPITAL/ER FOLLOW UP Which facility: [facility] Dates of visit: 05/10-05/13/2020 Preadmission evaluation: [...] of this encounter (statuses as of 12/09/2021) [facility]11-13-2021 History of Past illness Narrative* Problem Noted Date Resolved Date Encounter for support and coordination of transi tion of care 05/02/2021 07/23/2021 Overview: Hospital discharge summary: Date of admission 05/01/2021 Date of discharge: Facility: [facility] 05/01/2021 presented to the emergency [...] 05/02/2021 Overview: HOSPITAL/ER FOLLOW UP Which facility: [facility] Dates of visit: 05/10-05/13/2020 Preadmission evaluation: [...] of this encounter (statuses as of 12/09/2021) [facility]11-13-2021 History of Past illness Narrative* Problem Noted Date Resolved Date Encounter for support and coordination of transi tion of care 05/02/2021 07/23/2021 Overview: Hospital discharge summary: Date of admission 05/01/2021 Date of discharge: Facility: [facility] 05/01/2021 presented to the emergency [...] 05/02/2021 Overview: HOSPITAL/ER FOLLOW UP Which facility: [facility] Dates of visit: 05/10-05/13/2020 Preadmission evaluation: [...] of this encounter (statuses as of 12/10/2021) [facility]11-13-2021 History of Past illness Narrative* Problem Noted Date Resolved Date Encounter for support and coordination of transi tion of care 05/02/2021 07/23/2021 Overview: Hospital discharge summary: Date of admission 05/01/2021 Date of discharge: Facility: [facility] 05/01/2021 presented to the emergency [...] 05/02/2021 Overview: HOSPITAL/ER FOLLOW UP Which facility: [facility] Dates of visit: 05/10-05/13/2020 Preadmission evaluation: [...] of this encounter (statuses as of 12/10/2021) [facility]-13-2021 History of Past illness Narrative* Problem Noted Date Resolved Date Encounter for support and coordination of transi tion of care 05/02/2021 07/23/2021 Overview: Hospital discharge summary: Date of admission 05/01/2021 Date of discharge: Facility: [facility] 05/01/2021 presented to the emergency [...] 05/02/2021 Overview: HOSPITAL/ER FOLLOW UP Which facility: [facility] Dates of visit: 05/10-05/13/2020 Preadmission evaluation: [...] of this encounter (statuses as of 12/10/2021) [facility]-13-2021 History of Past illness Narrative* Problem Noted Date Resolved Date Encounter for support and coordination of transi tion of care 05/02/2021 07/23/2021 Overview: Hospital discharge summary: Date of admission 05/01/2021 Date of discharge: Facility: [facility] 05/01/2021 presented to the emergency [...] 05/02/2021 Overview: HOSPITAL/ER FOLLOW UP Which facility: [facility] Dates of visit: 05/10-05/13/2020 Preadmission evaluation: [...] of this encounter (statuses as of 12/15/2021) [facility]-13-2021 History of Past illness Narrative* Problem Noted Date Resolved Date Encounter for support and coordination of transi tion of care 05/02/2021 07/23/2021 Overview: Hospital discharge summary: Date of admission 05/01/2021 Date of discharge: Facility: [facility] 05/01/2021 presented to the emergency [...] 05/02/2021 Overview: HOSPITAL/ER FOLLOW UP Which facility: [facility] Dates of visit: 05/10-05/13/2020 Preadmission evaluation: [...] of this encounter (statuses as of 01/04/2022) [facility]11-13-2021 History of Past illness Narrative* Problem Noted Date Resolved Date Encounter for support and coordination of transi tion of care 05/02/2021 07/23/2021 Overview: Hospital discharge summary: Date of admission 05/01/2021 Date of discharge: Facility: [facility] 05/01/2021 presented to the emergency [...] 05/02/2021 Overview: HOSPITAL/ER FOLLOW UP Which facility: [facility] Dates of visit: 05/10-05/13/2020 Preadmission evaluation: [...] of this encounter (statuses as of 01/04/2022) [facility]-13-2021 History of Past illness Narrative* Problem Noted Date Resolved Date Encounter for support and coordination of transi tion of care 05/02/2021 07/23/2021 Overview: Hospital discharge summary: Date of admission 05/01/2021 Date of discharge: Facility: [facility] 05/01/2021 presented to the emergency [...] 05/02/2021 Overview: HOSPITAL/ER FOLLOW UP Which facility: [facility] Dates of visit: 05/10-05/13/2020 Preadmission evaluation: [...] of this encounter (statuses as of 01/04/2022) [facility]-13-2021 History of Past illness Narrative* Problem Noted Date Resolved Date Encounter for support and coordination of transi tion of care 05/02/2021 07/23/2021 Overview: Hospital discharge summary: Date of admission 05/01/2021 Date of discharge: Facility: [facility] 05/01/2021 presented to the emergency [...] 05/02/2021 Overview: HOSPITAL/ER FOLLOW UP Which facility: [facility] Dates of visit: 05/10-05/13/2020 Preadmission evaluation: [...] of this encounter (statuses as of 01/14/2022) [facility]-13-2021 History of Past illness Narrative* Problem Noted Date Resolved Date Encounter for support and coordination of transi tion of care 05/02/2021 07/23/2021 Overview: Hospital discharge summary: Date of admission 05/01/2021 Date of discharge: Facility: [facility] 05/01/2021 presented to the emergency [...] 05/02/2021 Overview: HOSPITAL/ER FOLLOW UP Which facility: [facility] Dates of visit: 05/10-05/13/2020 Preadmission evaluation: [...] of this encounter (statuses as of 01/18/2022) [facility]11-13-2021 History of Past illness Narrative* Problem Noted Date Resolved Date Encounter for support and coordination of transi tion of care 05/02/2021 07/23/2021 Overview: Hospital discharge summary: Date of admission 05/01/2021 Date of discharge: Facility: [facility] 05/01/2021 presented to the emergency [...] 05/02/2021 Overview: HOSPITAL/ER FOLLOW UP Which facility: [facility] Dates of visit: 05/10-05/13/2020 Preadmission evaluation: [...] of this encounter (statuses as of 01/27/2022) [facility]-13-2021 History of Past illness Narrative* Problem Noted Date Resolved Date Encounter for support and coordination of transi tion of care 05/02/2021 07/23/2021 Overview: Hospital discharge summary: Date of admission 05/01/2021 Date of discharge: Facility: [facility] 05/01/2021 presented to the emergency [...] 05/02/2021 Overview: HOSPITAL/ER FOLLOW UP Which facility: [facility] Dates of visit: 05/10-05/13/2020 Preadmission evaluation: [...] of this encounter (statuses as of 01/29/2022) [facility]-2021 History of Past illness Narrative* Problem Noted Date Resolved Date Encounter for support and coordination of transi tion of care 05/02/2021 07/23/2021 Overview: Hospital discharge summary: Date of admission 05/01/2021 Date of discharge: Facility: [facility] 05/01/2021 presented to the emergency [...] 05/02/2021 Overview: HOSPITAL/ER FOLLOW UP Which facility: [facility] Dates of visit: 05/10-05/13/2020 Preadmission evaluation: [...] of this encounter (statuses as of 01/29/2022) [facility]-2021 History of Past illness Narrative* Problem Noted Date Resolved Date Encounter for support and coordination of transi tion of care 05/02/2021 07/23/2021 Overview: Hospital discharge summary: Date of admission 05/01/2021 Date of discharge: Facility: [facility] 05/01/2021 presented to the emergency [...] 05/02/2021 Overview: HOSPITAL/ER FOLLOW UP Which facility: [facility] Dates of visit: 05/10-05/13/2020 Preadmission evaluation: [...] of this encounter (statuses as of 02/05/2022) [facility]-2021 History of Past illness Narrative* Problem Noted Date Resolved Date Encounter for support and coordination of transi tion of care 05/02/2021 07/23/2021 Overview: Hospital discharge summary: Date of admission 05/01/2021 Date of discharge: Facility: [facility] 05/01/2021 presented to the emergency [...] 05/02/2021 Overview: HOSPITAL/ER FOLLOW UP Which facility: [facility] Dates of visit: 05/10-05/13/2020 Preadmission evaluation: [...] of this encounter (statuses as of 02/11/2022) [facility]-2021 History of Past illness Narrative* Problem Noted Date Resolved Date Encounter for support and coordination of transi tion of care 05/02/2021 07/23/2021 Overview: Hospital discharge summary: Date of admission 05/01/2021 Date of discharge: Facility: [facility] 05/01/2021 presented to the emergency [...] 05/02/2021 Overview: HOSPITAL/ER FOLLOW UP Which facility: [facility] Dates of visit: 05/10-05/13/2020 Preadmission evaluation: [...] of this encounter (statuses as of 02/17/2022) [facility]-13-2021 History of Past illness Narrative* Problem Noted Date Resolved Date Encounter for support and coordination of transi tion of care 05/02/2021 07/23/2021 Overview: Hospital discharge summary: Date of admission 05/01/2021 Date of discharge: Facility: [facility] 05/01/2021 presented to the emergency [...] 05/02/2021 Overview: HOSPITAL/ER FOLLOW UP Which facility: [facility] Dates of visit: 05/10-05/13/2020 Preadmission evaluation: [...] of this encounter (statuses as of 02/23/2022) [facility]2021 History of Past illness Narrative* Problem Noted Date Resolved Date Encounter for support and coordination of transi tion of care 05/02/2021 07/23/2021 Overview: Hospital discharge summary: Date of admission 05/01/2021 Date of discharge: Facility: [facility] 05/01/2021 presented to the emergency [...] 05/02/2021 Overview: HOSPITAL/ER FOLLOW UP Which facility: [facility] Dates of visit: 05/10-05/13/2020 Preadmission evaluation: [...] of this encounter (statuses as of 02/24/2022) [facility]21 History of Past illness Narrative* Problem Noted Date Resolved Date Encounter for support and coordination of transi tion of care 05/02/2021 07/23/2021 Overview: Hospital discharge summary: Date of admission 05/01/2021 Date of discharge: Facility: [facility] 05/01/2021 presented to the emergency [...] 05/02/2021 Overview: HOSPITAL/ER FOLLOW UP Which facility: [facility] Dates of visit: 05/10-05/13/2020 Preadmission evaluation: [...] of this encounter (statuses as of 02/25/2022) [facility]21 History of Past illness Narrative* Problem Noted Date Resolved Date Encounter for support and coordination of transi tion of care 05/02/2021 07/23/2021 Overview: Hospital discharge summary: Date of admission 05/01/2021 Date of discharge: Facility: [facility] 05/01/2021 presented to the emergency [...] 05/02/2021 Overview: HOSPITAL/ER FOLLOW UP Which facility: [facility] Dates of visit: 05/10-05/13/2020 Preadmission evaluation: [...] of this encounter (statuses as of 02/26/2022) [facility]2021 History of Past illness Narrative* Problem Noted Date Resolved Date Encounter for support and coordination of transi tion of care 05/02/2021 07/23/2021 Overview: Hospital discharge summary: Date of admission 05/01/2021 Date of discharge: Facility: [facility] 05/01/2021 presented to the emergency [...] 05/02/2021 Overview: HOSPITAL/ER FOLLOW UP Which facility: [facility] Dates of visit: 05/10-05/13/2020 Preadmission evaluation: [...] of this encounter (statuses as of 02/27/2022) [facility]21 History of Past illness Narrative* Problem Noted Date Resolved Date Encounter for support and coordination of transi tion of care 05/02/2021 07/23/2021 Overview: Hospital discharge summary: Date of admission 05/01/2021 Date of discharge: Facility: [facility] 05/01/2021 presented to the emergency [...] 05/02/2021 Overview: HOSPITAL/ER FOLLOW UP Which facility: [facility] Dates of visit: 05/10-05/13/2020 Preadmission evaluation: [...] of this encounter (statuses as of 03/02/2022) [facility]21 History of Past illness Narrative* Problem Noted Date Resolved Date Encounter for support and coordination of transi tion of care 05/02/2021 07/23/2021 Overview: Hospital discharge summary: Date of admission 05/01/2021 Date of discharge: Facility: [facility] 05/01/2021 presented to the emergency [...] 05/02/2021 Overview: HOSPITAL/ER FOLLOW UP Which facility: [facility] Dates of visit: 05/10-05/13/2020 Preadmission evaluation: [...] of this encounter (statuses as of 03/11/2022) [facility] History of Past illness Narrative* Problem Noted Date Resolved Date Encounter for support and coordination of transi tion of care 05/02/2021 07/23/2021 Overview: Hospital discharge summary: Date of admission 05/01/2021 Date of discharge: Facility: [facility] 05/01/2021 presented to the emergency [...] 05/02/2021 Overview: HOSPITAL/ER FOLLOW UP Which facility: [facility] Dates of visit: 05/10-05/13/2020 Preadmission evaluation: [...] of this encounter (statuses as of 03/12/2022) [facility]21 History of Past illness Narrative* Problem Noted Date Resolved Date Encounter for support and coordination of transi tion of care 05/02/2021 07/23/2021 Overview: Hospital discharge summary: Date of admission 05/01/2021 Date of discharge: Facility: [facility] 05/01/2021 presented to the emergency [...] 05/02/2021 Overview: HOSPITAL/ER FOLLOW UP Which facility: [facility] Dates of visit: 05/10-05/13/2020 Preadmission evaluation: [...] of this encounter (statuses as of 03/16/2022) [facility]21 History of Past illness Narrative* Problem Noted Date Resolved Date Encounter for support and coordination of transi tion of care 05/02/2021 07/23/2021 Overview: Hospital discharge summary: Date of admission 05/01/2021 Date of discharge: Facility: [facility] 05/01/2021 presented to the emergency [...] 05/02/2021 Overview: HOSPITAL/ER FOLLOW UP Which facility: [facility] Dates of visit: 05/10-05/13/2020 Preadmission evaluation: [...] of this encounter (statuses as of 03/17/2022) [facility] History of Past illness Narrative* Problem Noted Date Resolved Date Encounter for support and coordination of transi tion of care 05/02/2021 07/23/2021 Overview: Hospital discharge summary: Date of admission 05/01/2021 Date of discharge: Facility: [facility] 05/01/2021 presented to the emergency [...] 05/02/2021 Overview: HOSPITAL/ER FOLLOW UP Which facility: [facility] Dates of visit: 05/10-05/13/2020 Preadmission evaluation: [...] of this encounter (statuses as of 03/25/2022) [facility] History of Past illness Narrative* Problem Noted Date Resolved Date Encounter for support and coordination of transi tion of care 05/02/2021 07/23/2021 Overview: Hospital discharge summary: Date of admission 05/01/2021 Date of discharge: Facility: [facility] 05/01/2021 presented to the emergency [...] 05/02/2021 Overview: HOSPITAL/ER FOLLOW UP Which facility: [facility] Dates of visit: 05/10-05/13/2020 Preadmission evaluation: [...] of this encounter (statuses as of 03/26/2022) [facility] History of Past illness Narrative* Problem Noted Date Resolved Date Encounter for support and coordination of transi tion of care 05/02/2021 07/23/2021 Overview: Hospital discharge summary: Date of admission 05/01/2021 Date of discharge: Facility: [facility] 05/01/2021 presented to the emergency [...] 05/02/2021 Overview: HOSPITAL/ER FOLLOW UP Which facility: [facility] Dates of visit: 05/10-05/13/2020 Preadmission evaluation: [...] of this encounter (statuses as of 04/01/2022) [facility] History of Past illness Narrative* Problem Noted Date Resolved Date Encounter for support and coordination of transi tion of care 05/02/2021 07/23/2021 Overview: Hospital discharge summary: Date of admission 05/01/2021 Date of discharge: Facility: [facility] 05/01/2021 presented to the emergency [...] 05/02/2021 Overview: HOSPITAL/ER FOLLOW UP Which facility: [facility] Dates of visit: 05/10-05/13/2020 Preadmission evaluation: [...] of this encounter (statuses as of 04/12/2022) [facility] History of Past illness Narrative* Problem Noted Date Resolved Date Encounter for support and coordination of transi tion of care 05/02/2021 07/23/2021 Overview: Hospital discharge summary: Date of admission 05/01/2021 Date of discharge: Facility: [facility] 05/01/2021 presented to the emergency [...] 05/02/2021 Overview: HOSPITAL/ER FOLLOW UP Which facility: [facility] Dates of visit: 05/10-05/13/2020 Preadmission evaluation: [...] of this encounter (statuses as of 04/19/2022) [facility] History of Past illness Narrative* Problem Noted Date Resolved Date Encounter for support and coordination of transi tion of care 05/02/2021 07/23/2021 Overview: Hospital discharge summary: Date of admission 05/01/2021 Date of discharge: Facility: [facility] 05/01/2021 presented to the emergency [...] 05/02/2021 Overview: HOSPITAL/ER FOLLOW UP Which facility: [facility] Dates of visit: 05/10-05/13/2020 Preadmission evaluation: [...] of this encounter (statuses as of 04/23/2022) [facility] History of Past illness Narrative* Problem Noted Date Resolved Date Encounter for support and coordination of transi tion of care 05/02/2021 07/23/2021 Overview: Hospital discharge summary: Date of admission 05/01/2021 Date of discharge: Facility: [facility] 05/01/2021 presented to the emergency [...] 05/02/2021 Overview: HOSPITAL/ER FOLLOW UP Which facility: [facility] Dates of visit: 05/10-05/13/2020 Preadmission evaluation: [...] of this encounter (statuses as of 05/07/2022) [facility] History of Past illness Narrative* Problem Noted Date Resolved Date Encounter for support and coordination of transi tion of care 05/02/2021 07/23/2021 Overview: Hospital discharge summary: Date of admission 05/01/2021 Date of discharge: Facility: [facility] 05/01/2021 presented to the emergency [...] 05/02/2021 Overview: HOSPITAL/ER FOLLOW UP Which facility: [facility] Dates of visit: 05/10-05/13/2020 Preadmission evaluation: [...] of this encounter (statuses as of 05/07/2022) [facility] History of Past illness Narrative* Problem Noted Date Resolved Date Encounter for support and coordination of transi tion of care 05/02/2021 07/23/2021 Overview: Hospital discharge summary: Date of admission 05/01/2021 Date of discharge: Facility: [facility] 05/01/2021 presented to the emergency [...] 05/02/2021 Overview: HOSPITAL/ER FOLLOW UP Which facility: [facility] Dates of visit: 05/10-05/13/2020 Preadmission evaluation: [...] of this encounter (statuses as of 05/11/2022) [facility] History of Past illness Narrative* Problem Noted Date Resolved Date Encounter for support and coordination of transi tion of care 05/02/2021 07/23/2021 Overview: Hospital discharge summary: Date of admission 05/01/2021 Date of discharge: Facility: [facility] 05/01/2021 presented to the emergency [...] 05/02/2021 Overview: HOSPITAL/ER FOLLOW UP Which facility: [facility] Dates of visit: 05/10-05/13/2020 Preadmission evaluation: [...] of this encounter (statuses as of 05/14/2022) [facility] History of Past illness Narrative* Problem Noted Date Resolved Date Encounter for support and coordination of transi tion of care 05/02/2021 07/23/2021 Overview: Hospital discharge summary: Date of admission 05/01/2021 Date of discharge: Facility: [facility] 05/01/2021 presented to the emergency [...] 05/02/2021 Overview: HOSPITAL/ER FOLLOW UP Which facility: [facility] Dates of visit: 05/10-05/13/2020 Preadmission evaluation: [...] of this encounter (statuses as of 05/20/2022) [facility] History of Past illness Narrative* Problem Noted Date Resolved Date Encounter for support and coordination of transi tion of care 05/02/2021 07/23/2021 Overview: Hospital discharge summary: Date of admission 05/01/2021 Date of discharge: Facility: [facility] 05/01/2021 presented to the emergency [...] 05/02/2021 Overview: HOSPITAL/ER FOLLOW UP Which facility: [facility] Dates of visit: 05/10-05/13/2020 Preadmission evaluation: [...] of this encounter (statuses as of 05/21/2022) [facility] History of Past illness Narrative* Problem Noted Date Resolved Date Encounter for support and coordination of transi tion of care 05/02/2021 07/23/2021 Overview: Hospital discharge summary: Date of admission 05/01/2021 Date of discharge: Facility: [facility] 05/01/2021 presented to the emergency [...] 05/02/2021 Overview: HOSPITAL/ER FOLLOW UP Which facility: [facility] Dates of visit: 05/10-05/13/2020 Preadmission evaluation: [...] of this encounter (statuses as of 05/25/2022) [facility] History of Past illness Narrative* Problem Noted Date Resolved Date Encounter for support and coordination of transi tion of care 05/02/2021 07/23/2021 Overview: Hospital discharge summary: Date of admission 05/01/2021 Date of discharge: Facility: [facility] 05/01/2021 presented to the emergency [...] 05/02/2021 Overview: HOSPITAL/ER FOLLOW UP Which facility: [facility] Dates of visit: 05/10-05/13/2020 Preadmission evaluation: [...] of this encounter (statuses as of 05/27/2022) [facility]11-13-2021 History of Past illness Narrative* Problem Noted Date Resolved Date Encounter for support and coordination of transi tion of care 05/02/2021 07/23/2021 Overview: Hospital discharge summary: Date of admission 05/01/2021 Date of discharge: Facility: [facility] 05/01/2021 presented to the emergency [...] 05/02/2021 Overview: HOSPITAL/ER FOLLOW UP Which facility: [facility] Dates of visit: 05/10-05/13/2020 Preadmission evaluation: [...] of this encounter (statuses as of 05/31/2022) [facility]11-13-2021 History of Past illness Narrative* Problem Noted Date Resolved Date Encounter for support and coordination of transi tion of care 05/02/2021 07/23/2021 Overview: Hospital discharge summary: Date of admission 05/01/2021 Date of discharge: Facility: [facility] 05/01/2021 presented to the emergency [...] 05/02/2021 Overview: HOSPITAL/ER FOLLOW UP Which facility: [facility] Dates of visit: 05/10-05/13/2020 Preadmission evaluation: [...] of this encounter (statuses as of 06/03/2022) [facility]11-13-2021 History of Past illness Narrative* Problem Noted Date Resolved Date Encounter for support and coordination of transi tion of care 05/02/2021 07/23/2021 Overview: Hospital discharge summary: Date of admission 05/01/2021 Date of discharge: Facility: [facility] 05/01/2021 presented to the emergency [...] 05/02/2021 Overview: HOSPITAL/ER FOLLOW UP Which facility: [facility] Dates of visit: 05/10-05/13/2020 Preadmission evaluation: [...] of this encounter (statuses as of 06/03/2022) [facility]11-13-2021 History of Past illness Narrative* Problem Noted Date Resolved Date Encounter for support and coordination of transi on of care 05/02/2021 07/23/2021 Overview: Hospital discharge summary: Date of admission 05/01/2021 Date of discharge: Facility: [facility] 05/01/2021 presented to the emergency [...] 05/02/2021 Overview: HOSPITAL/ER FOLLOW UP Which facility: [facility] Dates of visit: 05/10-05/13/2020 Preadmission evaluation: [...] of this encounter (statuses as of 06/13/2022) [facility]11-13-2021 History of Past illness Narrative* Problem Noted Date Resolved Date Encounter for support and coordination of transi tion of care 05/02/2021 07/23/2021 Overview: Hospital discharge summary: Date of admission 05/01/2021 Date of discharge: Facility: [facility] 05/01/2021 presented to the emergency [...] 05/02/2021 Overview: HOSPITAL/ER FOLLOW UP Which facility: [facility] Dates of visit: 05/10-05/13/2020 Preadmission evaluation: [...] of this encounter (statuses as of 06/13/2022) [facility]11-13-2021 History of Past illness Narrative* Problem Noted Date Resolved Date Encounter for support and coordination of transi tion of care 05/02/2021 07/23/2021 Overview: Hospital discharge summary: Date of admission 05/01/2021 Date of discharge: Facility: [facility] 05/01/2021 presented to the emergency [...] 05/02/2021 Overview: HOSPITAL/ER FOLLOW UP Which facility: [facility] Dates of visit: 05/10-05/13/2020 Preadmission evaluation: [...] of this encounter (statuses as of 06/22/2022) [facility]-13-2021 History of Past illness Narrative* Problem Noted Date Resolved Date Encounter for support and coordination of transi tion of care 05/02/2021 07/23/2021 Overview: Hospital discharge summary: Date of admission 05/01/2021 Date of discharge: Facility: [facility] 05/01/2021 presented to the emergency [...] 05/02/2021 Overview: HOSPITAL/ER FOLLOW UP Which facility: [facility] Dates of visit: 05/10-05/13/2020 Preadmission evaluation: [...] of this encounter (statuses as of 06/23/2022) [facility]-13-2021 History of Past illness Narrative* Problem Noted Date Resolved Date Encounter for support and coordination of transi tion of care 05/02/2021 07/23/2021 Overview: Hospital discharge summary: Date of admission 05/01/2021 Date of discharge: Facility: [facility] 05/01/2021 presented to the emergency [...] 05/02/2021 Overview: HOSPITAL/ER FOLLOW UP Which facility: [facility] Dates of visit: 05/10-05/13/2020 Preadmission evaluation: [...] of this encounter (statuses as of 06/23/2022) [facility]11-13-2021 History of Past illness Narrative* Problem Noted Date Resolved Date Encounter for support and coordination of transi tion of care 05/02/2021 07/23/2021 Overview: Hospital discharge summary: Date of admission 05/01/2021 Date of discharge: Facility: [facility] 05/01/2021 presented to the emergency [...] 05/02/2021 Overview: HOSPITAL/ER FOLLOW UP Which facility: [facility] Dates of visit: 05/10-05/13/2020 Preadmission evaluation: [...] of this encounter (statuses as of 06/23/2022) [facility]11-13-2021 History of Past illness Narrative* Problem Noted Date Resolved Date Encounter for support and coordination of transi tion of care 05/02/2021 07/23/2021 Overview: Hospital discharge summary: Date of admission 05/01/2021 Date of discharge: Facility: [facility] 05/01/2021 presented to the emergency [...] 05/02/2021 Overview: HOSPITAL/ER FOLLOW UP Which facility: [facility] Dates of visit: 05/10-05/13/2020 Preadmission evaluation: [...] of this encounter (statuses as of 06/25/2022) [facility]-13-2021 History of Past illness Narrative* Problem Noted Date Resolved Date Encounter for support and coordination of transi tion of care 05/02/2021 07/23/2021 Overview: Hospital discharge summary: Date of admission 05/01/2021 Date of discharge: Facility: [facility] 05/01/2021 presented to the emergency room with acute alcohol intoxication, initial alcohol level 7-8. Acknowledges over the last 5 months drinking 15 packs a day at 8% alcohol (marcin samaneigo). Vital signs 96.6 [id number]/73-98%. Appearance was no [...] 05/02/2021 Overview: HOSPITAL/ER FOLLOW UP Which facility: [facility] Dates of visit: 05/10-05/13/2020 Preadmission evaluation: [...] of this encounter (statuses as of 06/25/2022) [facility]11-13-2021 History of Past illness Narrative* Problem Noted Date Resolved Date Encounter for support and coordination of transi tion of care 05/02/2021 07/23/2021 Overview: Hospital discharge summary: Date of admission 05/01/2021 Date of discharge: Facility: [facility] 05/01/2021 presented to the emergency room with acute alcohol intoxication, initial alcohol level 7-8. Acknowledges over the last 5 months drinking 15 packs a day at 8% alcohol (marcin [place]). Vital signs 96.6 [id number]/73-98%. Appearance was no [...] 05/02/2021 Overview: HOSPITAL/ER FOLLOW UP Which facility: [facility] Dates of visit: 05/10-05/13/2020 Preadmission evaluation: [...] of this encounter (statuses as of 06/28/2022) [facility]-13-2021 History of Past illness Narrative* Problem Noted Date Resolved Date Encounter for support and coordination of transi tion of care 05/02/2021 07/23/2021 Overview: Hospital discharge summary: Date of admission 05/01/2021 Date of discharge: Facility: [facility] 05/01/2021 presented to the emergency [...] 05/02/2021 Overview: HOSPITAL/ER FOLLOW UP Which facility: [facility] Dates of visit: 05/10-05/13/2020 Preadmission evaluation: [...] of this encounter (statuses as of 07/14/2022) [facility]-13-2021 History of Past illness Narrative* Problem Noted Date Resolved Date Encounter for support and coordination of transi tion of care 05/02/2021 07/23/2021 Overview: Hospital discharge summary: Date of admission 05/01/2021 Date of discharge: Facility: [facility] 05/01/2021 presented to the emergency [...] 05/02/2021 Overview: HOSPITAL/ER FOLLOW UP Which facility: [facility] Dates of visit: 05/10-05/13/2020 Preadmission evaluation: [...] of this encounter (statuses as of 07/16/2022) [facility]-13-2021 History of Past illness Narrative* Problem Noted Date Resolved Date Encounter for support and coordination of transi tion of care 05/02/2021 07/23/2021 Overview: Hospital discharge summary: Date of admission 05/01/2021 Date of discharge: Facility: [facility] 05/01/2021 presented to the emergency [...] 05/02/2021 Overview: HOSPITAL/ER FOLLOW UP Which facility: [facility] Dates of visit: 05/10-05/13/2020 Preadmission evaluation: [...] of this encounter (statuses as of 07/22/2022) [facility]-13-2021 History of Past illness Narrative* Problem Noted Date Resolved Date Encounter for support and coordination of transi tion of care 05/02/2021 07/23/2021 Overview: Hospital discharge summary: Date of admission 05/01/2021 Date of discharge: Facility: [facility] 05/01/2021 presented to the emergency [...] 05/02/2021 Overview: HOSPITAL/ER FOLLOW UP Which facility: [facility] Dates of visit: 05/10-05/13/2020 Preadmission evaluation: [...] of this encounter (statuses as of 08/06/2022) [facility]-2021 History of Past illness Narrative* Problem Noted Date Resolved Date Encounter for support and coordination of transi tion of care 05/02/2021 07/23/2021 Overview: Hospital discharge summary: Date of admission 05/01/2021 Date of discharge: Facility: [facility] 05/01/2021 presented to the emergency [...] 05/02/2021 Overview: HOSPITAL/ER FOLLOW UP Which facility: [facility] Dates of visit: 05/10-05/13/2020 Preadmission evaluation: [...] of this encounter (statuses as of 08/13/2022) [facility]-13-2021 History of Past illness Narrative* Problem Noted Date Resolved Date Encounter for support and coordination of transi tion of care 05/02/2021 07/23/2021 Overview: Hospital discharge summary: Date of admission 05/01/2021 Date of discharge: Facility: [facility] 05/01/2021 presented to the emergency [...] 05/02/2021 Overview: HOSPITAL/ER FOLLOW UP Which facility: [facility] Dates of visit: 05/10-05/13/2020 Preadmission evaluation: [...] of this encounter (statuses as of 08/16/2022) [facility]-13-2021 History of Past illness Narrative* Problem Noted Date Resolved Date Encounter for support and coordination of transi tion of care 05/02/2021 07/23/2021 Overview: Hospital discharge summary: Date of admission 05/01/2021 Date of discharge: Facility: [facility] 05/01/2021 presented to the emergency [...] 05/02/2021 Overview: HOSPITAL/ER FOLLOW UP Which facility: [facility] Dates of visit: 05/10-05/13/2020 Preadmission evaluation: [...] of this encounter (statuses as of 08/17/2022) [facility]-13-2021 History of Past illness Narrative* Problem Noted Date Resolved Date Encounter for support and coordination of transi tion of care 05/02/2021 07/23/2021 Overview: Hospital discharge summary: Date of admission 05/01/2021 Date of discharge: Facility: [facility] 05/01/2021 presented to the emergency [...] 05/02/2021 Overview: HOSPITAL/ER FOLLOW UP Which facility: [facility] Dates of visit: 05/10-05/13/2020 Preadmission evaluation: [...] of this encounter (statuses as of 08/18/2022) [facility]21 History of Past illness Narrative* Problem Noted Date Resolved Date Encounter for support and coordination of transi tion of care 05/02/2021 07/23/2021 Overview: Hospital discharge summary: Date of admission 05/01/2021 Date of discharge: Facility: [facility] 05/01/2021 presented to the emergency [...] 05/02/2021 Overview: HOSPITAL/ER FOLLOW UP Which facility: [facility] Dates of visit: 05/10-05/13/2020 Preadmission evaluation: [...] of this encounter (statuses as of 08/26/2022) [facility]21 History of Past illness Narrative* Problem Noted Date Resolved Date Encounter for support and coordination of transi tion of care 05/02/2021 07/23/2021 Overview: Hospital discharge summary: Date of admission 05/01/2021 Date of discharge: Facility: [facility] 05/01/2021 presented to the emergency [...] 05/02/2021 Overview: HOSPITAL/ER FOLLOW UP Which facility: [facility] Dates of visit: 05/10-05/13/2020 Preadmission evaluation: [...] of this encounter (statuses as of 08/27/2022) [facility]21 History of Past illness Narrative* Problem Noted Date Resolved Date Encounter for support and coordination of transi tion of care 05/02/2021 07/23/2021 Overview: Hospital discharge summary: Date of admission 05/01/2021 Date of discharge: Facility: [facility] 05/01/2021 presented to the emergency [...] 05/02/2021 Overview: HOSPITAL/ER FOLLOW UP Which facility: [facility] Dates of visit: 05/10-05/13/2020 Preadmission evaluation: [...] of this encounter (statuses as of 09/01/2022) [facility]-13-2021 History of Past illness Narrative* Problem Noted Date Resolved Date Encounter for support and coordination of transi tion of care 05/02/2021 07/23/2021 Overview: Hospital discharge summary: Date of admission 05/01/2021 Date of discharge: Facility: [facility] 05/01/2021 presented to the emergency [...] 05/02/2021 Overview: HOSPITAL/ER FOLLOW UP Which facility: [facility] Dates of visit: 05/10-05/13/2020 Preadmission evaluation: [...] of this encounter (statuses as of 09/16/2022) [facility]21 History of Past illness Narrative* Problem Noted Date Resolved Date Encounter for support and coordination of transi tion of care 05/02/2021 07/23/2021 Overview: Hospital discharge summary: Date of admission 05/01/2021 Date of discharge: Facility: [facility] 05/01/2021 presented to the emergency [...] 05/02/2021 Overview: HOSPITAL/ER FOLLOW UP Which facility: [facility] Dates of visit: 05/10-05/13/2020 Preadmission evaluation: [...] of this encounter (statuses as of 10/09/2022) [facility]21 History of Past illness Narrative* Problem Noted Date Resolved Date Encounter for support and coordination of transi tion of care 05/02/2021 07/23/2021 Overview: Hospital discharge summary: Date of admission 05/01/2021 Date of discharge: Facility: [facility] 05/01/2021 presented to the emergency [...] 05/02/2021 Overview: HOSPITAL/ER FOLLOW UP Which facility: [facility] Dates of visit: 05/10-05/13/2020 Preadmission evaluation: [...] of this encounter (statuses as of 10/14/2022) [facility] History of Past illness Narrative* Problem Noted Date Resolved Date Encounter for support and coordination of transi tion of care 05/02/2021 07/23/2021 Overview: Hospital discharge summary: Date of admission 05/01/2021 Date of discharge: Facility: [facility] 05/01/2021 presented to the emergency [...] 05/02/2021 Overview: HOSPITAL/ER FOLLOW UP Which facility: [facility] Dates of visit: 05/10-05/13/2020 Preadmission evaluation: [...] of this encounter (statuses as of 10/21/2022) [facility]21 History of Past illness Narrative* Problem Noted Date Resolved Date Encounter for support and coordination of transi tion of care 05/02/2021 07/23/2021 Overview: Hospital discharge summary: Date of admission 05/01/2021 Date of discharge: Facility: [facility] 05/01/2021 presented to the emergency [...] 05/02/2021 Overview: HOSPITAL/ER FOLLOW UP Which facility: [facility] Dates of visit: 05/10-05/13/2020 Preadmission evaluation: [...] of this encounter (statuses as of 10/27/2022) [facility] History of Past illness Narrative* Problem Noted Date Resolved Date Encounter for support and coordination of transi tion of care 05/02/2021 07/23/2021 Overview: Hospital discharge summary: Date of admission 05/01/2021 Date of discharge: Facility: [facility] 05/01/2021 presented to the emergency [...] 05/02/2021 Overview: HOSPITAL/ER FOLLOW UP Which facility: [facility] Dates of visit: 05/10-05/13/2020 Preadmission evaluation: [...] of this encounter (statuses as of 11/22/2022) [facility] History of Past illness Narrative* Problem Noted Date Resolved Date Encounter for support and coordination of transi tion of care 05/02/2021 07/23/2021 Overview: Hospital discharge summary: Date of admission 05/01/2021 Date of discharge: Facility: [facility] 05/01/2021 presented to the emergency [...] 05/02/2021 Overview: HOSPITAL/ER FOLLOW UP Which facility: [facility] Dates of visit: 05/10-05/13/2020 Preadmission evaluation: [...] of this encounter (statuses as of 11/23/2022) [facility] History of Past illness Narrative* Problem Noted Date Resolved Date Encounter for support and coordination of transi tion of care 05/02/2021 07/23/2021 Overview: Hospital discharge summary: Date of admission 05/01/2021 Date of discharge: Facility: [facility] 05/01/2021 presented to the emergency [...] 05/02/2021 Overview: HOSPITAL/ER FOLLOW UP Which facility: [facility] Dates of visit: 05/10-05/13/2020 Preadmission evaluation: [...] of this encounter (statuses as of 12/10/2022) [facility] History of Past illness Narrative* Problem Noted Date Resolved Date Encounter for support and coordination of transi tion of care 05/02/2021 07/23/2021 Overview: Hospital discharge summary: Date of admission 05/01/2021 Date of discharge: Facility: [facility] 05/01/2021 presented to the emergency [...] 05/02/2021 Overview: HOSPITAL/ER FOLLOW UP Which facility: [facility] Dates of visit: 05/10-05/13/2020 Preadmission evaluation: [...] of this encounter (statuses as of 12/10/2022) [facility] History of Past illness Narrative* Problem Noted Date Resolved Date Encounter for support and coordination of transi tion of care 05/02/2021 07/23/2021 Overview: Hospital discharge summary: Date of admission 05/01/2021 Date of discharge: Facility: [facility] 05/01/2021 presented to the emergency [...] 05/02/2021 Overview: HOSPITAL/ER FOLLOW UP Which facility: [facility] Dates of visit: 05/10-05/13/2020 Preadmission evaluation: [...] of this encounter (statuses as of 12/10/2022) [facility] History of Past illness Narrative* Problem Noted Date Resolved Date Encounter for support and coordination of transi tion of care 05/02/2021 07/23/2021 Overview: Hospital discharge summary: Date of admission 05/01/2021 Date of discharge: Facility: [facility] 05/01/2021 presented to the emergency [...] 05/02/2021 Overview: HOSPITAL/ER FOLLOW UP Which facility: [facility] Dates of visit: 05/10-05/13/2020 Preadmission evaluation: [...] of this encounter (statuses as of 12/16/2022) [facility] History of Past illness Narrative* Problem Noted Date Resolved Date Encounter for support and coordination of transi tion of care 05/02/2021 07/23/2021 Overview: Hospital discharge summary: Date of admission 05/01/2021 Date of discharge: Facility: [facility] 05/01/2021 presented to the emergency [...] 05/02/2021 Overview: HOSPITAL/ER FOLLOW UP Which facility: [facility] Dates of visit: 05/10-05/13/2020 Preadmission evaluation: [...] of this encounter (statuses as of 12/16/2022) [facility] History of Past illness Narrative* Problem Noted Date Resolved Date Encounter for support and coordination of transi on of care 05/02/2021 07/23/2021 Overview: Hospital discharge summary: Date of admission 05/01/2021 Date of discharge: Facility: [facility] 05/01/2021 presented to the emergency [...] 05/02/2021 Overview: HOSPITAL/ER FOLLOW UP Which facility: [facility] Dates of visit: 05/10-05/13/2020 Preadmission evaluation: [...] of this encounter (statuses as of 12/23/2022) [facility] History of Past illness Narrative* Problem Noted Date Resolved Date Encounter for support and coordination of transi tion of care 05/02/2021 07/23/2021 Overview: Hospital discharge summary: Date of admission 05/01/2021 Date of discharge: Facility: [facility] 05/01/2021 presented to the emergency [...] 05/02/2021 Overview: HOSPITAL/ER FOLLOW UP Which facility: [facility] Dates of visit: 05/10-05/13/2020 Preadmission evaluation: [...] of this encounter (statuses as of 12/24/2022) [facility] History of Past illness Narrative* Problem Noted Date Diagnosed Date Resolved Date Encounter for support and co ordination of transition of care 05/02/2021 07/23/2021 Overview: Hospital discharge summary: Date of admission 05/01/2021 Date of discharge: Facility: [facility] 05/01/2021 presented to the emergency [...] 05/02/2021 Overview: HOSPITAL/ER FOLLOW UP Which facility: [facility] Dates of visit: 05/10-05/13/2020 Preadmission evaluation: [...] of this encounter (statuses as of 01/05/2023) [facility] History of Past illness Narrative* Problem Noted Date Diagnosed Date Resolved Date Encounter for support and co ordination of transition of care 05/02/2021 07/23/2021 Overview: Hospital discharge summary: Date of admission 05/01/2021 Date of discharge: Facility: [facility] 05/01/2021 presented to the emergency [...] 05/02/2021 Overview: HOSPITAL/ER FOLLOW UP Which facility: [facility] Dates of visit: 05/10-05/13/2020 Preadmission evaluation: [...] of this encounter (statuses as of 01/05/2023) [facility] History of Past illness Narrative* Problem Noted Date Diagnosed Date Resolved Date Encounter for support and co ordination of transition of care 05/02/2021 07/23/2021 Overview: Hospital discharge summary: Date of admission 05/01/2021 Date of discharge: Facility: [facility] 05/01/2021 presented to the emergency [...] 05/02/2021 Overview: HOSPITAL/ER FOLLOW UP Which facility: [facility] Dates of visit: 05/10-05/13/2020 Preadmission evaluation: [...] of this encounter (statuses as of 01/07/2023) [facility] History of Past illness Narrative* Problem Noted Date Diagnosed Date Resolved Date Encounter for support and co ordination of transition of care 05/02/2021 07/23/2021 Overview: Hospital discharge summary: Date of admission 05/01/2021 Date of discharge: Facility: [facility] 05/01/2021 presented to the emergency [...] 05/02/2021 Overview: HOSPITAL/ER FOLLOW UP Which facility: [facility] Dates of visit: 05/10-05/13/2020 Preadmission evaluation: [...] of this encounter (statuses as of 01/14/2023) [facility] History of Past illness Narrative* Problem Noted Date Diagnosed Date Resolved Date Encounter for support and co ordination of transition of care 05/02/2021 07/23/2021 Overview: Hospital discharge summary: Date of admission 05/01/2021 Date of discharge: Facility: [facility] 05/01/2021 presented to the emergency [...] 05/02/2021 Overview: HOSPITAL/ER FOLLOW UP Which facility: [facility] Dates of visit: 05/10-05/13/2020 Preadmission evaluation: [...] of this encounter (statuses as of 01/29/2023) [facility]11-13-2021 History of Past illness Narrative* Problem Noted Date Diagnosed Date Resolved Date Encounter for support and co ordination of transition of care 05/02/2021 07/23/2021 Overview: Hospital discharge summary: Date of admission 05/01/2021 Date of discharge: Facility: [facility] 05/01/2021 presented to the emergency [...] 05/02/2021 Overview: HOSPITAL/ER FOLLOW UP Which facility: [facility] Dates of visit: 05/10-05/13/2020 Preadmission evaluation: [...] of this encounter (statuses as of 01/31/2023) [facility]11-13-2021 History of Past illness Narrative* Problem Noted Date Diagnosed Date Resolved Date Encounter for support and co ordination of transition of care 05/02/2021 07/23/2021 Overview: Hospital discharge summary: Date of admission 05/01/2021 Date of discharge: Facility: [facility] 05/01/2021 presented to the emergency [...] 05/02/2021 Overview: HOSPITAL/ER FOLLOW UP Which facility: [facility] Dates of visit: 05/10-05/13/2020 Preadmission evaluation: [...] of this encounter (statuses as of 02/01/2023) [facility]11-13-2021 History of Past illness Narrative* Problem Noted Date Diagnosed Date Resolved Date Encounter for support and co ordination of transition of care 05/02/2021 07/23/2021 Overview: Hospital discharge summary: Date of admission 05/01/2021 Date of discharge: Facility: [facility] 05/01/2021 presented to the emergency room with acute alcohol intoxication, initial alcohol level 7-8. Acknowledges over the last 5 months drinking 15 packs a day at 8% alcohol (marcni samaniego). Vital signs 96.6 [id number]%. Appearance was [...] 05/02/2021 Overview: HOSPITAL/ER FOLLOW UP Which facility: [facility] Dates of visit: 05/10-05/13/2020 Preadmission evaluation: [...] of this encounter (statuses as of 02/03/2023) [facility]11-13-2021 History of Past illness Narrative* Problem Noted Date Diagnosed Date Resolved Date Encounter for support and co ordination of transition of care 05/02/2021 07/23/2021 Overview: Hospital discharge summary: Date of admission 05/01/2021 Date of discharge: Facility: [facility] 05/01/2021 presented to the emergency [...] 05/02/2021 Overview: HOSPITAL/ER FOLLOW UP Which facility: [facility] Dates of visit: 05/10-05/13/2020 Preadmission evaluation: [...] of this encounter (statuses as of 02/08/2023) [facility]11-13-2021 History of Past illness Narrative* Problem Noted Date Diagnosed Date Resolved Date Encounter for support and co ordination of transition of care 05/02/2021 07/23/2021 Overview: Hospital discharge summary: Date of admission 05/01/2021 Date of discharge: Facility: [facility] 05/01/2021 presented to the emergency [...] 05/02/2021 Overview: HOSPITAL/ER FOLLOW UP Which facility: [facility] Dates of visit: 05/10-05/13/2020 Preadmission evaluation: [...] of this encounter (statuses as of 02/14/2023) [facility]11-13-2021 History of Past illness Narrative* Problem Noted Date Diagnosed Date Resolved Date Encounter for support and co ordination of transition of care 05/02/2021 07/23/2021 Overview: Hospital discharge summary: Date of admission 05/01/2021 Date of discharge: Facility: [facility] 05/01/2021 presented to the emergency [...] 05/02/2021 Overview: HOSPITAL/ER FOLLOW UP Which facility: [facility] Dates of visit: 05/10-05/13/2020 Preadmission evaluation: [...] of this encounter (statuses as of 02/15/2023) [facility]11-13-2021 History of Past illness Narrative* Problem Noted Date Diagnosed Date Resolved Date Encounter for support and co ordination of transition of care 05/02/2021 07/23/2021 Overview: Hospital discharge summary: Date of admission 05/01/2021 Date of discharge: Facility: [facility] 05/01/2021 presented to the emergency [...] 05/02/2021 Overview: HOSPITAL/ER FOLLOW UP Which facility: [facility] Dates of visit: 05/10-05/13/2020 Preadmission evaluation: [...] of this encounter (statuses as of 02/16/2023) [facility]11-13-2021 History of Past illness Narrative* Problem Noted Date Diagnosed Date Resolved Date Encounter for support and co ordination of transition of care 05/02/2021 07/23/2021 Overview: Hospital discharge summary: Date of admission 05/01/2021 Date of discharge: Facility: [facility] 05/01/2021 presented to the emergency [...] 05/02/2021 Overview: HOSPITAL/ER FOLLOW UP Which facility: [facility] Dates of visit: 05/10-05/13/2020 Preadmission evaluation: [...] of this encounter (statuses as of 03/01/2023) [facility]11-13-2021 History of Past illness Narrative* Problem Noted Date Diagnosed Date Resolved Date Encounter for support and co ordination of transition of care 05/02/2021 07/23/2021 Overview: Hospital discharge summary: Date of admission 05/01/2021 Date of discharge: Facility: [facility] 05/01/2021 presented to the emergency [...] 05/02/2021 Overview: HOSPITAL/ER FOLLOW UP Which facility: [facility] Dates of visit: 05/10-05/13/2020 Preadmission evaluation: [...] of this encounter (statuses as of 03/09/2023) [facility]11-13-2021 History of Past illness Narrative* Problem Noted Date Diagnosed Date Resolved Date Encounter for support and co ordination of transition of care 05/02/2021 07/23/2021 Overview: Hospital discharge summary: Date of admission 05/01/2021 Date of discharge: Facility: [facility] 05/01/2021 presented to the emergency [...] 05/02/2021 Overview: HOSPITAL/ER FOLLOW UP Which facility: [facility] Dates of visit: 05/10-05/13/2020 Preadmission evaluation: [...] of this encounter (statuses as of 03/12/2023) [facility]11-13-2021 History of Past illness Narrative* Problem Noted Date Diagnosed Date Resolved Date Encounter for support and co ordination of transition of care 05/02/2021 07/23/2021 Overview: Hospital discharge summary: Date of admission 05/01/2021 Date of discharge: Facility: [facility] 05/01/2021 presented to the emergency [...] 05/02/2021 Overview: HOSPITAL/ER FOLLOW UP Which facility: [facility] Dates of visit: 05/10-05/13/2020 Preadmission evaluation: [...] of this encounter (statuses as of 04/25/2023) [facility]11-13-2021 History of Past illness Narrative* Problem Noted Date Diagnosed Date Resolved Date Encounter for support and co ordination of transition of care 05/02/2021 07/23/2021 Overview: Hospital discharge summary: Date of admission 05/01/2021 Date of discharge: Facility: [facility] 05/01/2021 presented to the emergency [...] 05/02/2021 Overview: HOSPITAL/ER FOLLOW UP Which facility: [facility] Dates of visit: 05/10-05/13/2020 Preadmission evaluation: [...] of this encounter (statuses as of 04/25/2023) [facility]11-13-2021 History of Past illness Narrative* Problem Noted Date Diagnosed Date Resolved Date Encounter for support and co ordination of transition of care 05/02/2021 07/23/2021 Overview: Hospital discharge summary: Date of admission 05/01/2021 Date of discharge: Facility: [facility] 05/01/2021 presented to the emergency [...] 05/02/2021 Overview: HOSPITAL/ER FOLLOW UP Which facility: [facility] Dates of visit: 05/10-05/13/2020 Preadmission evaluation: [...] of this encounter (statuses as of 04/25/2023) [facility]11-13-2021 History of Past illness Narrative* Problem Noted Date Diagnosed Date Resolved Date Encounter for support and co ordination of transition of care 05/02/2021 07/23/2021 Overview: Hospital discharge summary: Date of admission 05/01/2021 Date of discharge: Facility: [facility] 05/01/2021 presented to the emergency [...] 05/02/2021 Overview: HOSPITAL/ER FOLLOW UP Which facility: [facility] Dates of visit: 05/10-05/13/2020 Preadmission evaluation: [...] of this encounter (statuses as of 05/11/2023) [facility]11-13-2021 History of Past illness Narrative* Problem Noted Date Diagnosed Date Resolved Date Encounter for support and co ordination of transition of care 05/02/2021 07/23/2021 Overview: Hospital discharge summary: Date of admission 05/01/2021 Date of discharge: Facility: [facility] 05/01/2021 presented to the emergency [...] 05/02/2021 Overview: HOSPITAL/ER FOLLOW UP Which facility: [facility] Dates of visit: 05/10-05/13/2020 Preadmission evaluation: [...] of this encounter (statuses as of 05/20/2023) [facility]11-13-2021 History of Past illness Narrative* Problem Noted Date Diagnosed Date Resolved Date Encounter for support and co ordination of transition of care 05/02/2021 07/23/2021 Overview: Hospital discharge summary: Date of admission 05/01/2021 Date of discharge: Facility: [facility] 05/01/2021 presented to the emergency [...] 05/02/2021 Overview: HOSPITAL/ER FOLLOW UP Which facility: [facility] Dates of visit: 05/10-05/13/2020 Preadmission evaluation: [...] of this encounter (statuses as of 05/25/2023) [facility] Diagnosis Vitamin D deficiency Unspecified vitamin [...] Inconclusive mammogram- Primary [facility] Diagnosis NO SHOW- Primary documented in this encounter [facility] note* Diagnosis Radiculopathy, lumbar region- Primary Thoracic or lumbosacral neuritis or radiculitis, unspecified [facility]* Diagnosis Alcohol abuse- Primary Alcohol abuse, unspecified Delusional disorder (HCC) Gastroesophageal reflux disease without esophagitis Esophageal reflux Hyperglycemia Other abnormal glucose Primary hypertension Unspecified essential hypertension documented in this encounter [facility] note* Diagnosis Essential hypertension Unspecified essential hypertension [facility] Diagnosis Inconclusive mammogram [facility] Diagnosis Alcohol abuse- Primary Alcohol abuse, [...] of mild degree documented in this encounter [facility] note* Diagnosis History of colonic polyps- Primary Personal history of colonic polyps Chronic active hepatitis C (HCC) Gastroesophageal reflux disease, unspecified whether esophagitis present documented in this encounter [facility] note* Diagnosis Chronic active hepatitis C (HCC) documented in this encounter [facility] note* Diagnosis History of colonic polyps Personal history of colonic polyps [facility] Diagnosis Radiculopathy, lumbar region- Primary Thoracic or lumbosacral neuritis or radiculitis, unspecified Spinal stenosis of lumbar region without neurogenic claudication Spinal stenosis, lumbar region, without neurogenic claudication Lumbar spondylosis Lumbosacral spondylosis without myelopathy Chronic bilateral low back pain without sciatica History of urinary urgency Personal history of other disorder of urinary system Cervical spondylosis without myelopathy documented in this encounter [facility] note* Diagnosis Cervical spondylosis without myelopathy- Primary Radiculopathy, lumbar region Thoracic or lumbosacral neuritis or radiculitis, unspecified Spinal stenosis, lumbar region, without neurogenic claudication Cervical spondylosis without myelopathy Cervical spondylosis without myelopathy [facility] Diagnosis Urge incontinence- Primary Stress incontinence, female Female stress incontinence Radiculopathy, lumbar region Thoracic or lumbosacral neuritis or radiculitis, unspecified Spinal stenosis, lumbar region, without neurogenic claudication Cervical spondylosis without myelopathy Cervical spondylosis without myelopathy [facility] Diagnosis Other chronic pain- Primary Radiculopathy, lumbar region Thoracic or lumbosacral neuritis or radiculitis, unspecified Spinal stenosis, lumbar region, without neurogenic claudication Cervical spondylosis without myelopathy Cervical spondylosis without myelopathy [facility] Diagnosis Closed fracture of upper extremity, unspecified laterality, initial encounter- Primary Radiculopathy, lumbar region Thoracic or lumbosacral neuritis or radiculitis, unspecified Spinal stenosis, lumbar region, without neurogenic claudication Cervical spondylosis without myelopathy Cervical spondylosis without myelopathy [facility] Diagnosis Vaginal discharge- Primary Leukorrhea, not specified as infective Cervical spondylosis without myelopathy Cervical spondylosis without myelopathy [facility] Cervical spondylosis without myelopathy- Primary Cervical spondylosis without myelopathy [facility] Diagnosis Essential hypertension Unspecified essential hypertension Low serum potassium Hyperlipidemia, mixed Mixed hyperlipidemia Fibromyalgia Mylagia and myositis, unspecified Cervical spondylosis without myelopathy [facility] Diagnosis Cervical spondylosis without myelopathy- [...] acquired Unspecified hypothyroidism [facility] Diagnosis Radiculopathy, lumbar region Thoracic or lumbosacral neuritis or radiculitis, unspecified Spinal stenosis, lumbar region, without neurogenic claudication [facility] Diagnosis Vitamin D deficiency Unspecified vitamin D deficiency [facility]* Diagnosis Dehydration- Primary Postural dizziness with [...] Other speech disturbance [facility] Diagnosis Cervical spondylosis without myelopathy- Primary [facility] Diagnosis Chronic hepatitis C without hepatic coma (HCC)- Primary Chronic hepatitis C without mention of hepatic coma Cervical spondylosis without myelopathy Cervical spondylosis without myelopathy [facility] Diagnosis Chronic hepatitis C without hepatic coma (HCC)- Primary Chronic hepatitis C without mention of hepatic coma Gastroesophageal reflux disease, unspecified whether esophagitis present Cervical spondylosis without myelopathy Cervical spondylosis without myelopathy [facility] Diagnosis Radiculopathy, lumbar region Thoracic or lumbosacral neuritis or radiculitis, unspecified Cervical spondylosis without myelopathy [facility] Diagnosis Alcohol abuse, in remission- Primary [...] spondylosis without myelopathy [facility] Diagnosis Tobacco abuse Tobacco use disorder Cervical spondylosis without myelopathy [facility] Diagnosis Essential hypertension Unspecified essential hypertension [facility] Diagnosis Cognitive impairment- Primary Unspecified persistent mental disorders due to conditions classified elsewhere Alcohol abuse, in remission Nondependent alcohol abuse, in remission Polysubstance abuse (HCC) Other, mixed, or unspecified nondependent drug abuse, unspecified Polypharmacy Encounter for long-term (current) use of other medications [facility] Hospital discharge follow-up- Primary Other [...] of hepatic coma [facility] Diagnosis Vaginal discharge- Primary Leukorrhea, not specified as infective Screening examination for STD (sexually transmitted disease) Screening examination for venereal disease documented [facility] this [facility] Diagnosis Chronic left-sided low back pain with sciatica, sciatica laterality unspecified- Primary Spinal stenosis of lumbar region without neurogenic claudication Spinal stenosis, lumbar region, without neurogenic claudication Lumbar spondylosis Lumbosacral spondylosis without myelopathy Fibromyalgia Mylagia and myositis, unspecified Other chronic pain [facility] Diagnosis Spinal stenosis of lumbar region without neurogenic claudication Spinal stenosis, lumbar region, without neurogenic claudication [facility] Diagnosis Radiculopathy, lumbar region Thoracic or lumbosacral neuritis or radiculitis, unspecified [facility] Diagnosis COPD (chronic obstructive pulmonary disease) with chronic bronchitis (HCC)- Primary Obstructive chronic bronchitis without exacerbation [facility] Diagnosis Radiculopathy, lumbar region Thoracic or lumbosacral neuritis or radiculitis, unspecified [facility] Diagnosis Hyperlipidemia, mixed Mixed hyperlipidemia Fibromyalgia Mylagia and myositis, unspecified Stress incontinence Female stress incontinence Alcohol abuse, in remission Nondependent alcohol abuse, in remission Chronic hepatitis C without hepatic coma (HCC) Chronic hepatitis C without mention of hepatic coma Memory impairment Memory loss Iron deficiency anemia, unspecified iron deficiency anemia type [facility] Diagnosis Cognitive impairment, mild, so stated- [...] or radiculitis, unspecified [facility] Diagnosis Vitamin D deficiency Unspecified vitamin D deficiency [facility] Diagnosis Cognitive impairment- Primary Unspecified persistent mental disorders due to conditions classified elsewhere Alcohol abuse, in remission Nondependent alcohol abuse, in remission Polysubstance abuse (HCC) Other, mixed, or unspecified nondependent drug abuse, unspecified Polypharmacy Encounter for long-term (current) use of other medications [facility] Diagnosis Chronic left-sided low back pain with sciatica, sciatica laterality unspecified- Primary DDD (degenerative disc disease), lumbar Degeneration of lumbar or lumbosacral intervertebral disc Lumbar spondylosis Lumbosacral spondylosis without myelopathy Gait instability Abnormality of gait Weight loss Loss of weight [facility]* Diagnosis Lumbar spondylosis- Primary Lumbosacral spondylosis without myelopathy Cervical spondylosis without myelopathy Spinal stenosis of lumbar region without neurogenic claudication Spinal stenosis, lumbar region, without neurogenic claudication Myofascial pain Mylagia and myositis, unspecified [facility]* Diagnosis Mastodynia of left breast- Primary Dense breast tissue Vaginal discharge Leukorrhea, not specified as infective Vaginal odor Unspecified symptom associated with female genital organs [facility] Diagnosis Hypertension, essential- Primary Unspecified essential hypertension [facility] Diagnosis Primary hypertension- Primary Unspecified essential hypertension Unspecified essential hypertension [facility] Diagnosis Cognitive impairment- Primary Unspecified persistent [...] depression type Hallucinations [facility] Diagnosis Displacement of lumbar intervertebral disc without myelopathy- Primary Radiculopathy, lumbar region Thoracic or lumbosacral neuritis or radiculitis, unspecified [facility] Diagnosis Displacement of lumbar intervertebral disc without myelopathy- Primary Radiculopathy, lumbar region Thoracic or lumbosacral neuritis or radiculitis, unspecified Displacement of lumbar intervertebral disc without myelopathy Radiculopathy, lumbar region Thoracic or lumbosacral neuritis or radiculitis, unspecified [facility]* Diagnosis Hyperlipidemia, mixed Mixed hyperlipidemia Fibromyalgia [...] or radiculitis, unspecified [facility] Diagnosis Vitamin D deficiency Unspecified vitamin D deficiency [facility] Diagnosis Fibrocystic breast changes, bilateral- Primary Mastodynia of left breast Dense breast tissue Family history of breast cancer Family history of malignant neoplasm of breast Family history of ovarian cancer Family history of malignant neoplasm of ovary [facility]* Diagnosis Lumbar radiculopathy- Primary Thoracic or lumbosacral neuritis or radiculitis, unspecified Primary osteoarthritis of right hip Primary localized osteoarthrosis, pelvic region and thigh [facility] Diagnosis Primary osteoarthritis of right hip- Primary Primary localized osteoarthrosis, pelvic region and thigh Lumbar radiculopathy Thoracic or lumbosacral neuritis or radiculitis, unspecified [facility]* Diagnosis Breast pain Mastodynia [facility] Diagnosis Transient cerebral ischemia, unspecified type Balance problem Other symptoms involving nervous and musculoskeletal systems Falls frequently Personal history of fall [facility] encounter [facility]* Diagnosis Breast pain Mastodynia documented in this encounter [facility] note* Diagnosis Weakness of both hands- Primary Numbness and tingling in both hands Complaining of cold hands [facility] Diagnostic Procedure Only (Routine) - Authorized Specialty Diagnoses / Procedures Referred By Lauraac t Referred To Contact BR IMAGING Diagnoses Abnormal mammogram Procedures US BREAST LTD LT US BREAST UNI REAL TIME WITH IMAGE LIMITED Mitul Abbott MD [facility] [place] [address] Br Imaging [address] [place] [address] Referral ID Status Reason Start Date Expiration Date Visits Requested Visits Authorized [id number] Authorized Auto-Generat ed Referral 10/02/2021 11/01/2022 1 1 * Diagnostic Procedure Only (Routine) - Authorized Specialty Diagnoses / Procedures Referred By Contac t Referred To Contact BR IMAGING Diagnoses Abnormal mammogram Procedures US BREAST LTD RT US BREAST UNI REAL TIME WITH IMAGE LIMITED Mitul Abbott MD [facility] [place] [address] Br Imaging [address] [place] [address] Referral ID Status Reason Start Date Expiration Date Visits Requested Visits Authorized [id number] Authorized Auto-Generat ed Referral 10/02/2021 11/01/2022 1 1 * Diagnostic Procedure Only (Routine) - Authorized Specialty Diagnoses / Procedures Referred By Contac t Referred To Contact BR IMAGING Diagnoses Abnormal mammogram Procedures SHILOH DIAGNOSTIC BILAT DIAGNOSTIC MAMMOGRAPHY COMPUTER-AIDED DETCJ BI Mitul Abbott MD [address] [id number] Br [facility] [address] [place] [address] Referral ID Status Reason Start Date Expiration Date Visits Requested Visits Authorized [id number] Authorized Auto-Generat ed Referral 10/02/2021 11/01/2022 1 1 [facility] for referral (narrative)* Diagnostic Procedure Only (Routine) - Pending Review Specialty Diagnoses / Procedures Referred By Contac t Referred To Contact BR IMAGING Diagnoses Inconclusive mammogram Procedures US BREAST LTD RT US BREAST UNI REAL TIME WITH IMAGE LIMITED Jaimee Palomares PA-C [address] [place] [address] Br Imaging [address] [place] [address] Referral ID Status Reason Start Date Expiration Date Visits Requested Visits Authorized [id number] Pending Review Auto-Generat ed Referral 10/04/2021 11/03/2022 1 1 * Diagnostic Procedure Only (Routine) - Pending Review Specialty Diagnoses / Procedures Referred By Contac t Referred To Contact BR IMAGING Diagnoses Inconclusive mammogram Procedures US BREAST LTD LT US BREAST UNI REAL TIME WITH IMAGE LIMITED Jaimee Palomares PA-C [address] [place] [address] Br Imaging [address] [place] [address] Referral ID Status Reason Start Date Expiration Date Visits Requested Visits Authorized [id number] Pending Review Auto-Generat ed Referral 10/04/2021 11/03/2022 1 1 * Diagnostic Procedure Only (Routine) - Pending Review Specialty Diagnoses / Procedures Referred By Contac t Referred To Contact BR IMAGING Diagnoses Inconclusive mammogram Procedures SHILOH DIAGNOSTIC BILAT DIAGNOSTIC MAMMOGRAPHY COMPUTER-AIDED DETCJ BI Jaimee Palomares PA-C [address] [place] [address] Br Imaging [address] [place] [address] Referral ID Status Reason Start Date Expiration Date Visits Requested Visits Authorized [id number] Pending Review Auto-Generat ed Referral 10/04/2021 11/03/2022 1 1 [facility] for referral (narrative)* Diagnostic Procedure Only (Routine) - Closed Specialty Diagnoses / Procedures Referred By Contac t Referred To Contact XR IMAGING Diagnoses Cervicalgia Procedures XR CERV OTHER 4V AP/LAT/OBL RADEX SPINE CERVICAL 4 OR 5 VIEWS Jaimee Palomares PA-C [address] [place] [address] Xr Imaging Referral ID Status Reason Start Date Expiration Date V isits Requested Visits Authorized [id number] Closed Auto-Generate d Referral 11/12/2021 12/12/2022 1 1 * Consult, Test, Treat (Routine) - Authorized Specialty Diagnoses / Procedures Referred By Contac t Referred To Contact General Surgery Diagnoses Screening for colon cancer Procedures CONSULT TO GENERAL SURGERY OFFICE/OUTPATIENT NEW HIGH MDM 60-74 MINUTES Jaimee Palomares PA-C [address] [place] [address] Referral ID Status Reason Start Date Expiration Date Visits Requested Visits Authorized [id number] Authorized PCP Requested Referral 11/12/2021 11/12/2022 1 1 * Physical Therapy (Routine) - Pending Review Specialty Diagnoses / Procedures Referred By Contac t Referred To Contact [facility] Diagnoses Stress incontinence Procedures CONSULT TO PHYSICAL THERAPY PHYSICAL THERAPY EVALUATION HIGH COMPLEX 45 MINS Jaimee Palomares PA-C [address] [place] [address] [facility] [place] [id number] Referral ID Status Reason Start Date Expiration Date Visits Requested Visits Authorized [id number] Pending Review Auto-Generat ed Referral 11/12/2021 11/12/2022 1 1 [facility] for referral (narrative)* Outpatient Procedure (Routine) - Authorized Specialty Diagnoses / Procedures Referred By Contac t Referred To Contact [facility] Diagnoses History of colonic polyps Procedures COLONOSCOPY DIAGNOSTIC COLONOSCOPY FLX DX W/COLLJ SPEC WHEN PFRMD Josué Blevins MD [address] [facility] [place] [address] [address] Referral ID Status Reason Start Date Expiration Date Visits Requested Visits Authorized [id number] Authorized Auto-Generat ed Referral 11/23/2021 11/23/2022 1 1 * Diagnostic Procedure Only (Routine) - Authorized Specialty Diagnoses / Procedures Referred By Contac t Referred To Contact US IMAGING Diagnoses Chronic active hepatitis C (HCC) Procedures US ABD RT UPPER QUADRANT US ABDOMINAL REAL TIME W/IMAGE LIMITED Josué Blevins MD [address] [facility] [place] [place] [address] Us Imaging Referral ID Status Reason Start Date Expiration Date Visits Requested Visits Authorized [id number] Authorized Auto-Generat ed Referral 11/23/2021 12/23/2022 1 1 * Outpatient Procedure (Routine) - Pending Review Specialty Diagnoses / Procedures Referred By Yana cartwright Referred To Contact [facility] Diagnoses Chronic active hepatitis C (HCC) Procedures DDI VIBRATION CONTROLLED TRANSIENT ELASTOGRAPHY (VCTE) LIVER ELASTOGRAPHY W/O IMAG W/I&R Josué Blevins MD [address] [facility] [place] [place] [address] [facility] [address] [place] [address] Referral ID Status Reason Start Date Expiration Date Visits Requested Visits Authorized [id number] Pending Review Auto-Generat ed Referral 11/23/2021 11/23/2022 1 1 [facility] for referral (narrative)* Diagnostic Procedure Only (Routine) - Closed Specialty Diagnoses / Procedures Referred By Yana cartwright Referred To Contact US IMAGING Diagnoses Chronic active hepatitis C (HCC) Procedures US ABD RT UPPER QUADRANT US ABDOMINAL REAL TIME W/IMAGE LIMITED Josué Blevins MD [address] [facility] [place] [address] Us Imaging Referral ID Status Reason Start Date Expiration Date V isits Requested Visits Authorized [id number] Closed Auto-Generate d Referral 11/23/2021 12/23/2022 1 1 [facility] for referral (narrative)* Outpatient Procedure (Routine) - Closed Specialty Diagnoses / Procedures Referred By Yana cartwright Referred To Contact [facility] Diagnoses History of colonic polyps Procedures COLONOSCOPY DIAGNOSTIC COLONOSCOPY FLX DX W/COLLJ SPEC WHEN PFRMD Josué Blevins MD [address] [facility] [place] [address] [facility] [address] [place] [address] Referral ID Status Reason Start Date Expiration Date V isits Requested Visits Authorized [id number] Closed Auto-Generate d Referral 11/23/2021 11/23/2022 1 1 [facility] for referral (narrative)* - Pending Review Specialty Diagnoses / Procedures Referred By Contac t Referred To Contact Physical Therapy Diagnoses Spinal stenosis of lumbar region without neurogenic claudication Procedures CONSULT TO PHYSICAL THERAPY Shira Kam, PAPER PATTERN FOLDER[employer] [address] [place] [address] Referral ID Status Reason Start Date Expiration Date V isits Requested Visits Authorized [id number] Pending Review 06/03/2022 09/01/2022 1 1 [facility] for referral (narrative)* Diagnostic Procedure Only (Routine) - Closed Specialty Diagnoses / Procedures Referred By Contac t Referred To Contact BR IMAGING Diagnoses Breast pain Procedures US BREAST LTD LT US BREAST UNI REAL TIME WITH IMAGE LIMITED Memo Huber MD [address] [place] [address] Br Imaging [address] [place] [address] Referral ID Status Reason Start Date Expiration Date V isits Requested Visits Authorized [id number] Closed Auto-Generate d Referral 07/29/2022 08/28/2023 1 1 [facility] for visit Narrative* Diagnostic Procedure Only (Routine) - Closed Specialty Diagnoses / Procedures Referred By Contac t Referred To Contact BR IMAGING Diagnoses Inconclusive mammogram Procedures SHILOH DIAGNOSTIC BILAT DIAGNOSTIC MAMMOGRAPHY COMPUTER-AIDED DETCJ BI Jaimee Palomares PA-C [address] [place] [address] Br Imaging [address] [place] [address] Referral ID Status Reason Start Date Expiration Date V isits Requested Visits Authorized [id number] Closed Auto-Generate d Referral 10/04/2021 11/03/2022 1 1 [facility] for visit Narrative* Diagnostic Procedure Only (Routine) - Closed Specialty Diagnoses / Procedures Referred By Contac t Referred To Contact US IMAGING Diagnoses Chronic active hepatitis C (HCC) Procedures US ABD RT UPPER QUADRANT US ABDOMINAL REAL TIME W/IMAGE LIMITED Josué Blevins MD [address] [facility] [place] [address] Us Imaging Referral ID Status Reason Start Date Expiration Date V isits Requested Visits Authorized [id number] Closed Auto-Generate d Referral 11/23/2021 12/23/2022 1 1 [facility] for visit Narrative* Outpatient Procedure (Routine) - Closed Specialty Diagnoses / Procedures Referred By Contac t Referred To Contact [facility] Diagnoses History of colonic polyps Procedures COLONOSCOPY DIAGNOSTIC COLONOSCOPY FLX DX W/COLLJ SPEC WHEN PFRMD Josué Blevins MD [address] [facility] [place] [address] [facility] [place] [address] [place] [address] Referral ID Status Reason Start Date Expiration Date V isits Requested Visits Authorized [id number] Closed Auto-Generate d Referral 11/23/2021 11/23/2022 1 1 [facility] for visit Narrative* Auth/Cert Specialty Diagnoses / Procedures Referred By Lauraac t Referred To Contact Diagnoses Radiculopathy, lumbar region Spinal stenosis, lumbar region, without neurogenic claudication Radiculopathy, lumbar region [M54.16] Spinal stenosis, lumbar region, without neurogenic claudication [M48.061] Procedures NJX AA&/STRD TFRML EPI LUMBAR/SACRAL 1 LEVEL INJECTION ANESTHETIC AGENT/STEROID TRANSFORAMINAL EPIDURAL W/ IMAGING GUIDANCE LUMBAR BILATERAL [facility] [address] [place] [address] Referral ID Status Reason Start Date Expiration Date Visits Re quested Visits Authorized [id number] 1 1 [facility] for visit Narrative* Diagnostic Procedure Only (Routine) - Closed Specialty Diagnoses / Procedures [facility] Ref[facility] To Contact BR [facility] Diagnoses Breast pain Procedures SHILOH DIAGNOSTIC BILAT DIAGNOSTIC MAMMOGRAPHY COMPUTER-AIDED DETCJ BI Memo Huber MD [address] [place] [address] Br Imaging [address] [place] [address] Referral ID Status Reason Start Date Expiration Date V isits Requested Visits Authorized [id number] Closed Auto-Generate d Referral 07/29/2022 08/28/2023 1 1 [facility] Summary Purpose Family History No Family History Records FoundNo Family History Records FoundNo Family History Records FoundNo Family History Records Found Advance Directives No Advanced Directives Records FoundDocuments on File Type Date Recorded 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 Advance Directive(s) 10/12/2018 8:00 AM [...] Documents on File Type Date Recorded 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 Advance Directive(s) 10/12/2018 8:00 AM [...] Documents on File Type Date Recorded 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 Advance Directive(s) 11/27/2021 2:06 PM [...] Documents on File Type Date Recorded 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 Advance Directive(s) 11/27/2021 2:06 PM [...] cartwright Referred To Contact Jaimee Palomares PA-C [address] [place] [address] Referral ID Status Reason Start Date Expiration Date V isits Requested Visits Authorized [id number] Pending Review 1 1 Referral ID Status Reason Start Date Expiration Date V isits Requested Visits Authorized [id number] Pending Review 1 1 Specialty Diagnoses / Procedures Referred By Contac t Referred To Contact Diagnoses Radiculopathy, lumbar region Spinal stenosis of lumbar region without neurogenic claudication Procedures [facility] Denice Gr, PAPER PATTERN FOLDER.[employer] [address] [place] [address] Home [facility] [address] [id number] Referral ID Status Reason Start Date Expiration Date Visits Requested Visits Authorized [id number] Authorized PCP Requested Referral 12/09/2021 03/09/2022 1 1 Specialty Diagnoses / Procedures Referred By Contac t Referred To Contact Urology Diagnoses History of urinary urgency Procedures CONSULT TO UROLOGY OFFICE/OUTPATIENT [facility] MDM 60-74 MINUTES Denice Gr, PAPER PATTERN FOLDER[employer] [address] [place] [address] Referral ID Status Reason Start Date Expiration Date Visits Requested Visits Authorized [id number] Authorized PCP Requested Referral 12/09/2021 12/09/2022 1 1 Specialty Diagnoses / Procedures Referred By Contac t Referred To Contact Diagnoses Other chronic pain Procedures CONSULT TO [facility] Denice Gr, PAPER PATTERN FOLDER.[employer] [address] [place] [address] Home Care [address] [place] [address] Referral ID Status Reason Start Date Expiration Date V isits Requested Visits Authorized [id number] Closed PCP Requested Referral 01/04/2022 04/04/2022 1 1 Specialty Diagnoses / Procedures Referred By Contac t Referred To Contact MR IMAGING Diagnoses Cognitive impairment, mild, so stated Memory impairment Slurred speech Procedures MRI BRAIN WO IVCON MRI BRAIN BRAIN STEM W/O CONTRAST MATERIAL Jaimee Palomares PA-C [address] [place] [address] Mr Imaging Referral ID Status Reason Start Date Expiration Date Visits Requested Visits Authorized [id number] Pending Review Auto-Generat ed Referral 02/27/2022 03/29/2023 1 1 Specialty Diagnoses / Procedures Referred By Contac t Referred To Contact Neurology Diagnoses Memory impairment Chronic hepatitis C without hepatic coma (HCC) Alcohol abuse, in remission Procedures CONSULT TO NEUROLOGY OFFICE/OUTPATIENT [facility] 60-74 MINUTES Jaimee Palomares PA-C [address] [place] [address] Referral ID Status Reason Start Date Expiration Date Visits Requested Visits Authorized [id number] Authorized PCP Requested Referral 02/25/2022 02/25/2023 1 1 Specialty Diagnoses / Procedures Referred By Contac t Referred To Contact CT IMAGING Diagnoses Lung nodules Procedures CT CHEST WO IVCON DIAGNOSTIC COMPUTED TOMOGRAPHY THORAX W/O CNTRST Jaimee Palomares PA-C [address] [place] [address] Ct Imaging Referral ID Status Reason Start Date Expiration Date Visits Requested Visits Authorized [id number] Pending Review Auto-Generat ed Referral 06/13/2023 1 1 Specialty Diagnoses / Procedures Referred By Contac t Referred To Contact Memo Huber MD [address] [place] [address] Referral ID Status Reason Start Date Expiration Date Visits Re quested Visits Authorized [id number] Closed 1 1 Referral ID Status Reason Start Date Expiration Date Visits Re quested Visits Authorized [id number] Closed 1 1 Specialty Diagnoses / Procedures Referred By Contac t Referred To Contact Breast Diseases Diagnoses Mastodynia of left breast Dense breast tissue Procedures CONSULT TO BREAST CENTER OFFICE/OUTPATIENT [facility] 60-74 MINUTES Jenifer [place] [address] Referral ID Status Reason Start Date Expiration Date Visits Requested Visits Authorized [id number] Authorized PCP Requested Referral 10/20/2022 10/20/2023 1 1 Specialty Diagnoses / Procedures Referred By Contac t Referred To Contact MR IMAGING Diagnoses Transient cerebral ischemia, unspecified type Balance problem Falls frequently Procedures MRI BRAIN WO IVCON MRI BRAIN BRAIN STEM W/O CONTRAST MATERIAL Urvashi Hughes, PAPER PATTERN FOLDER.[employer] [address] [place] [address] Mr Imaging Referral ID Status Reason Start Date Expiration Date Visits Requested Visits Authorized [id number] Pending Review Auto-Generat ed Referral 12/16/2022 01/15/2024 1 1 Specialty Diagnoses / Procedures Referred By Contac t Referred To Contact [facility] Diagnoses Cognitive impairment Hallucinations Procedures EPIL EEG ROUTINE ELECTROENCEPHALOGRAM REC COMA/SLEEP ONLY Urvashi Hughes, PAPER PATTERN FOLDER.[employer] [address] [place] [address] [address] Referral ID Status Reason Start Date Expiration Date Visits Requested Visits Authorized [id number] Authorized Auto-Generat ed Referral 12/16/2022 12/17/2023 1 1 Specialty Diagnoses / Procedures Referred By Contac t Referred To Contact Diagnoses Alcohol abuse, in remission Polysubstance abuse (HCC) Depression, unspecified depression type Procedures CONSULT TO PSYCHIATRY OFFICE/OUTPATIENT [facility] 60-74 MINUTES Urvashi Hughes, PAPER PATTERN FOLDER.[employer] [address] [place] [address] Referral ID Status Reason Start Date Expiration Date Visits Requested Visits Authorized [id number] Pending Review PCP Requested Referral 12/16/2022 12/16/2023 1 1 Referral ID Status Reason Start Date Expiration Date Visits Re quested Visits Authorized [id number] Closed 1 1 Specialty Diagnoses / Procedures Referred By Contac t Referred To Contact Diagnoses Family history of breast cancer Family history of ovarian cancer Procedures CONSULT TO MEDICAL GENETICS - CANCER MEDICAL GENETICS COUNSELING EACH 30 MINUTES Agustina Brown PA-C [address] [facility] [place] [address] [facility] [employer] [facility] [place] [address] [place] [address] Referral ID Status Reason Start Date Expiration Date Visits Requested Visits Authorized [id number] Authorized PCP Requested Referral Auto-Generate d Referral 02/14/2023 02/14/2024 1 1 Specialty Diagnoses / Procedures Referred By Contac t Referred To Contact [facility] Diagnoses Primary osteoarthritis of right hip Lumbar radiculopathy Procedures PT AQUATIC REHAB FOLLOW UP ORDER THER PX 1/> AREAS EACH 15 MIN AQUA THER W/XERSS Pt c Bath [address] [place] [address] [facility] [place] [address] [place] [id number] Referral ID Status Reason Start Date Expiration Date Visits Requested Visits Authorized [id number] Pending Review PCP Requested Referral Auto-Generate d Referral 02/16/2023 05/17/2023 1 1 Specialty Diagnoses / Procedures Referred By Contac t Referred To Contact MR IMAGING Diagnoses Transient cerebral ischemia, unspecified type Balance problem Falls frequently Procedures MRI BRAIN WO IVCON MRI BRAIN BRAIN STEM W/O CONTRAST MATERIAL Urvashi Hughes, PAPER PATTERN FOLDER.[employer] [address] [place] [address] Mr Imaging [facility] Referral ID Status Reason Start Date Expiration Date V isits Requested Visits Authorized [id number] Closed Auto-Generate d Referral 01/12/2023 03/13/2023 1 1 Specialty Diagnoses / Procedures Referred By Contac t Referred To Contact MR IMAGING Diagnoses Weakness of both hands Numbness and tingling in both hands Complaining of cold hands Procedures MRI CERVICAL SPINE WO IVCON MRI SPINAL CANAL CERVICAL W/O CONTRAST MATRL Flo Martino MD [address] [place] [address] Mr Imaging [facility] Referral ID Status Reason Start Date Expiration Date V isits Requested Visits Authorized [id number] Open Auto-Generate d Referral 05/10/2023 06/08/2024 1 1 Specialty Diagnoses / Procedures Referred By Contac t Referred To Contact [facility] Diagnoses Complaining of cold hands Procedures US ARM ARTERIAL KAMRAN [facility] DUP-SCAN UXTR ART/ARTL BPGS COMPL BI STUDY Flo Martino MD [address] [place] [address] [facility] [place] [address] [place] [address] Referral ID Status Reason Start Date Expiration Date Visits Requested Visits Authorized [id number] Authorized Auto-Generat ed Referral 3 05/09/2024 1 1 Specialty Diagnoses / Procedures Referred By Contact Referred To Contact [facility] Diagnoses Weakness of both hands Numbness and tingling in both hands Procedures EMG(NEURO/NI) NERVE CONDUCTION STUDIES 9-10 STUDIES Flo Martino MD [address] [place] [address] Neurological [place] [address] [place] [address] Referral ID Status Reason Start Date Expiration Date Visits Requested Visits Authorized [id number] Authorized Auto-Generat ed Referral 3 05/10/2024 1 1 Additional Source Comments INFORMATION SOURCE (unrecogn ized section and content) DATE CREATED AUTHOR AUTHOR'S ORGANIZ ATION 05/25/2019 [facility] DATE CREATED AUTHOR AUTHOR'S ORGANIZ ATION 05/29/2023 [facility] DATE CREATED AUTHOR AUTHOR'S ORGANIZ ATION 06/22/2023 [facility] Source Comments (unrecognize d section and content) In the event this informatio n is protected by the Federal Confidentiality of Alcohol and Drug Abuse Patient Records regulations: The Federal rules restrict any use of the information to criminally investigate or prosecute any alcohol or drug abuse patient.[facility] the event this information is protected by the Federal Confidentiality of Alcohol and Drug Abuse Patient Records regulations: The Federal rules restrict any use of the information to criminally investigate or prosecute any alcohol or drug abuse patient.[facility] the event this information is protected by the Federal Confidentiality of Alcohol and Drug Abuse Patient Records regulations: The Federal rules restrict any use of the information to criminally investigate or prosecute any alcohol or drug abuse patient.[facility] the event this information is protected by the Federal Confidentiality of Alcohol and Drug Abuse Patient Records regulations: The Federal rules restrict any use of the information to criminally investigate or prosecute any alcohol or drug abuse patient.[facility] the event this information is protected by the Federal Confidentiality of Alcohol and Drug Abuse Patient Records regulations: The Federal rules restrict any use of the information to criminally investigate or prosecute any alcohol or drug abuse patient.[facility] the event this information is protected by the Federal Confidentiality of Alcohol and Drug Abuse Patient Records regulations: The Federal rules restrict any use of the information to criminally investigate or prosecute any alcohol or drug abuse patient.[facility] the event this information is protected by the Federal Confidentiality of Alcohol and Drug Abuse Patient Records regulations: The Federal rules restrict any use of the information to criminally investigate or prosecute any alcohol or drug abuse patient.[facility] the event this information is protected by the Federal Confidentiality of Alcohol and Drug Abuse Patient Records regulations: The Federal rules restrict any use of the information to criminally investigate or prosecute any alcohol or drug abuse patient.[facility] the event this information is protected by the Federal Confidentiality of Alcohol and Drug Abuse Patient Records regulations: The Federal rules restrict any use of the information to criminally investigate or prosecute any alcohol or drug abuse patient.[facility] the event this information is protected by the Federal Confidentiality of Alcohol and Drug Abuse Patient Records regulations: The Federal rules restrict any use of the information to criminally investigate or prosecute any alcohol or drug abuse patient.[facility] the event this information is protected by the Federal Confidentiality of Alcohol and Drug Abuse Patient Records regulations: The Federal rules restrict any use of the information to criminally investigate or prosecute any alcohol or drug abuse patient.[facility] HospitalIn the event this information is protected by the Federal Confidentiality of Alcohol and Drug Abuse Patient Records regulations: The Federal rules restrict any use of the information to criminally investigate or prosecute any alcohol or drug abuse patient.[facility] HospitalIn the event this information is protected [...] or prosecute any alcohol or drug abuse patient.[facility] HospitalIn the event this information is protected by the Federal Confidentiality of Alcohol and Drug Abuse Patient Records regulations: The Federal rules restrict any use of the information to criminally investigate or prosecute any alcohol or drug abuse patient.[facility] HospitalIn the event this information is protected by the Federal Confidentiality of Alcohol and Drug Abuse Patient Records regulations: The Federal rules restrict any use of the information to criminally investigate or prosecute any alcohol or drug abuse patient.[facility] HospitalIn the event this information is protected by the Federal Confidentiality of Alcohol and Drug Abuse Patient Records regulations: The Federal rules restrict any use of the information to criminally investigate or prosecute any alcohol or drug abuse patient.[facility] HospitalIn the event this information is protected by the Federal Confidentiality of Alcohol and Drug Abuse Patient Records regulations: The Federal rules restrict any use of the information to criminally investigate or prosecute any alcohol or drug abuse patient.[facility] HospitalIn the event this information is protected by the Federal Confidentiality of Alcohol and Drug Abuse Patient Records regulations: The Federal rules restrict any use of the information to criminally investigate or prosecute any alcohol or drug abuse patient.[facility] HospitalIn the event this information is protected by the Federal Confidentiality of Alcohol and Drug Abuse Patient Records regulations: The Federal rules restrict any use of the information to criminally investigate or prosecute any alcohol or drug abuse patient.[facility] HospitalIn the event this information is protected by the Federal Confidentiality of Alcohol and Drug Abuse Patient Records regulations: The Federal rules restrict any use of the information to criminally investigate or prosecute any alcohol or drug abuse patient.[facility] HospitalIn the event this information is protected by the Federal Confidentiality of Alcohol and Drug Abuse Patient Records regulations: The Federal rules restrict any use of the information to criminally investigate or prosecute any alcohol or drug abuse patient.[facility] HospitalIn the event this information is protected by the Federal Confidentiality of Alcohol and Drug Abuse Patient Records regulations: The Federal rules restrict any use of the information to criminally investigate or prosecute any alcohol or drug abuse patient.[facility] HospitalIn the event this information is protected by the Federal Confidentiality of Alcohol and Drug Abuse Patient Records regulations: The Federal rules restrict any use of the information to criminally investigate or prosecute any alcohol or drug abuse patient.[facility] HospitalIn the event this information is protected by the Federal Confidentiality of Alcohol and Drug Abuse Patient Records regulations: The Federal rules restrict any use of the information to criminally investigate or prosecute any alcohol or drug abuse patient.[facility] HospitalIn the event this information is protected by the Federal Confidentiality of Alcohol and Drug Abuse Patient Records regulations: The Federal rules restrict any use of the information to criminally investigate or prosecute any alcohol or drug abuse patient.[facility] HospitalIn the event this information is protected by the Federal Confidentiality of Alcohol and Drug Abuse Patient Records regulations: The Federal rules restrict any use of the information to criminally investigate or prosecute any alcohol or drug abuse patient.[facility] HospitalIn the event this information is protected by the Federal Confidentiality of Alcohol and Drug Abuse Patient Records regulations: The Federal rules restrict any use of the information to criminally investigate or prosecute any alcohol or drug abuse patient.[facility] HospitalIn the event this information is protected by the Federal Confidentiality of Alcohol and Drug Abuse Patient Records regulations: The Federal rules restrict any use of the information to criminally investigate or prosecute any alcohol or drug abuse patient.[facility] HospitalIn the event this information is protected by the Federal Confidentiality of Alcohol and Drug Abuse Patient Records regulations: The Federal rules restrict any use of the information to criminally investigate or prosecute any alcohol or drug abuse patient.[facility] HospitalIn the event this information is protected by the Federal Confidentiality of Alcohol and Drug Abuse Patient Records regulations: The Federal rules restrict any use of the information to criminally investigate or prosecute any alcohol or drug abuse patient.[facility] HospitalIn the event this information is protected by the Federal Confidentiality of Alcohol and Drug Abuse Patient Records regulations: The Federal rules restrict any use of the information to criminally investigate or prosecute any alcohol or drug abuse patient.[facility] HospitalIn the event this information is protected by the Federal Confidentiality of Alcohol and Drug Abuse Patient Records regulations: The Federal rules restrict any use of the information to criminally investigate or prosecute any alcohol or drug abuse patient.[facility] HospitalIn the event this information is protected by the Federal Confidentiality of Alcohol and Drug Abuse Patient Records regulations: The Federal rules restrict any use of the information to criminally investigate or prosecute any alcohol or drug abuse patient.[facility] HospitalIn the event this information is protected by the Federal Confidentiality of Alcohol and Drug Abuse Patient Records regulations: The Federal rules restrict any use of the information to criminally investigate or prosecute any alcohol or drug abuse patient.[facility] HospitalIn the event this information is protected by the Federal Confidentiality of Alcohol and Drug Abuse Patient Records regulations: The Federal rules restrict any use of the information to criminally investigate or prosecute any alcohol or drug abuse patient.[facility] HospitalIn the event this information is protected by the Federal Confidentiality of Alcohol and Drug Abuse Patient Records regulations: The Federal rules restrict any use of the information to criminally investigate or prosecute any alcohol or drug abuse patient.[facility] HospitalIn the event this information is protected by the Federal Confidentiality of Alcohol and Drug Abuse Patient Records regulations: The Federal rules restrict any use of the information to criminally investigate or prosecute any alcohol or drug abuse patient.[facility] HospitalIn the event this information is protected by the Federal Confidentiality of Alcohol and Drug Abuse Patient Records regulations: The Federal rules restrict any use of the information to criminally investigate or prosecute any alcohol or drug abuse patient.[facility] HospitalIn the event this information is protected by the Federal Confidentiality of Alcohol and Drug Abuse Patient Records regulations: The Federal rules restrict any use of the information to criminally investigate or prosecute any alcohol or drug abuse patient.[facility] HospitalIn the event this information is protected by the Federal Confidentiality of Alcohol and Drug Abuse Patient Records regulations: The Federal rules restrict any use of the information to criminally investigate or prosecute any alcohol or drug abuse patient.[facility] HospitalIn the event this information is protected by the Federal Confidentiality of Alcohol and Drug Abuse Patient Records regulations: The Federal rules restrict any use of the information to criminally investigate or prosecute any alcohol or drug abuse patient.[facility] HospitalIn the event this information is protected by the Federal Confidentiality of Alcohol and Drug Abuse Patient Records regulations: The Federal rules restrict any use of the information to criminally investigate or prosecute any alcohol or drug abuse patient.[facility] HospitalIn the event this information is protected by the Federal Confidentiality of Alcohol and Drug Abuse Patient Records regulations: The Federal rules restrict any use of the information to criminally investigate or prosecute any alcohol or drug abuse patient.[facility] HospitalIn the event this information is protected by the Federal Confidentiality of Alcohol and Drug Abuse Patient Records regulations: The Federal rules restrict any use of the information to criminally investigate or prosecute any alcohol or drug abuse patient.[facility] HospitalIn the event this information is protected by the Federal Confidentiality of Alcohol and Drug Abuse Patient Records regulations: The Federal rules restrict any use of the information to criminally investigate or prosecute any alcohol or drug abuse patient.[facility] HospitalIn the event this information is protected by the Federal Confidentiality of Alcohol and Drug Abuse Patient Records regulations: The Federal rules restrict any use of the information to criminally investigate or prosecute any alcohol or drug abuse patient.[facility] HospitalIn the event this information is protected by the Federal Confidentiality of Alcohol and Drug Abuse Patient Records regulations: The Federal rules restrict any use of the information to criminally investigate or prosecute any alcohol or drug abuse patient.[facility] HospitalIn the event this information is protected by the Federal Confidentiality of Alcohol and Drug Abuse Patient Records regulations: The Federal rules restrict any use of the information to criminally investigate or prosecute any alcohol or drug abuse patient.[facility] HospitalIn the event this information is protected by the Federal Confidentiality of Alcohol and Drug Abuse Patient Records regulations: The Federal rules restrict any use of the information to criminally investigate or prosecute any alcohol or drug abuse patient.[facility] HospitalIn the event this information is protected by the Federal Confidentiality of Alcohol and Drug Abuse Patient Records regulations: The Federal rules restrict any use of the information to criminally investigate or prosecute any alcohol or drug abuse patient.[facility] HospitalIn the event this information is protected by the Federal Confidentiality of Alcohol and Drug Abuse Patient Records regulations: The Federal rules restrict any use of the information to criminally investigate or prosecute any alcohol or drug abuse patient.[facility] HospitalIn the event this information is protected by the Federal Confidentiality of Alcohol and Drug Abuse Patient Records regulations: The Federal rules restrict any use of the information to criminally investigate or prosecute any alcohol or drug abuse patient.[facility] HospitalIn the event this information is protected by the Federal Confidentiality of Alcohol and Drug Abuse Patient Records regulations: The Federal rules restrict any use of the information to criminally investigate or prosecute any alcohol or drug abuse patient.[facility] HospitalIn the event this information is protected by the Federal Confidentiality of Alcohol and Drug Abuse Patient Records regulations: The Federal rules restrict any use of the information to criminally investigate or prosecute any alcohol or drug abuse patient.[facility] HospitalIn the event this information is protected by the Federal Confidentiality of Alcohol and Drug Abuse Patient Records regulations: The Federal rules restrict any use of the information to criminally investigate or prosecute any alcohol or drug abuse patient.[facility] HospitalIn the event this information is protected by the Federal Confidentiality of Alcohol and Drug Abuse Patient Records regulations: The Federal rules restrict any use of the information to criminally investigate or prosecute any alcohol or drug abuse patient.[facility] HospitalIn the event this information is protected by the Federal Confidentiality of Alcohol and Drug Abuse Patient Records regulations: The Federal rules restrict any use of the information to criminally investigate or prosecute any alcohol or drug abuse patient.[facility] HospitalIn the event this information is protected by the Federal Confidentiality of Alcohol and Drug Abuse Patient Records regulations: The Federal rules restrict any use of the information to criminally investigate or prosecute any alcohol or drug abuse patient.[facility] HospitalIn the event this information is protected by the Federal Confidentiality of Alcohol and Drug Abuse Patient Records regulations: The Federal rules restrict any use of the information to criminally investigate or prosecute any alcohol or drug abuse patient.[facility] the event this information is protected by the Federal Confidentiality of Alcohol and Drug Abuse Patient Records regulations: The Federal rules restrict any use of the information to criminally investigate or prosecute any alcohol or drug abuse patient.[facility] HospitalIn the event this information is protected by the Federal Confidentiality of Alcohol and Drug Abuse Patient Records regulations: The Federal rules restrict any use of the information to criminally investigate or prosecute any alcohol or drug abuse patient.[facility] HospitalIn the event this information is protected [...] or prosecute any alcohol or drug abuse patient.[facility] HospitalIn the event this information is protected by the Federal Confidentiality of Alcohol and Drug Abuse Patient Records regulations: The Federal rules restrict any use of the information to criminally investigate or prosecute any alcohol or drug abuse patient.[facility] HospitalIn the event this information is protected by the Federal Confidentiality of Alcohol and Drug Abuse Patient Records regulations: The Federal rules restrict any use of the information to criminally investigate or prosecute any alcohol or drug abuse patient.[facility] HospitalIn the event this information is protected by the Federal Confidentiality of Alcohol and Drug Abuse Patient Records regulations: The Federal rules restrict any use of the information to criminally investigate or prosecute any alcohol or drug abuse patient.[facility] HospitalIn the event this information is protected by the Federal Confidentiality of Alcohol and Drug Abuse Patient Records regulations: The Federal rules restrict any use of the information to criminally investigate or prosecute any alcohol or drug abuse patient.[facility] HospitalIn the event this information is protected by the Federal Confidentiality of Alcohol and Drug Abuse Patient Records regulations: The Federal rules restrict any use of the information to criminally investigate or prosecute any alcohol or drug abuse patient.[facility] HospitalIn the event this information is protected by the Federal Confidentiality of Alcohol and Drug Abuse Patient Records regulations: The Federal rules restrict any use of the information to criminally investigate or prosecute any alcohol or drug abuse patient.[facility] HospitalIn the event this information is protected by the Federal Confidentiality of Alcohol and Drug Abuse Patient Records regulations: The Federal rules restrict any use of the information to criminally investigate or prosecute any alcohol or drug abuse patient.[facility] HospitalIn the event this information is protected by the Federal Confidentiality of Alcohol and Drug Abuse Patient Records regulations: The Federal rules restrict any use of the information to criminally investigate or prosecute any alcohol or drug abuse patient.[facility] HospitalIn the event this information is protected by the Federal Confidentiality of Alcohol and Drug Abuse Patient Records regulations: The Federal rules restrict any use of the information to criminally investigate or prosecute any alcohol or drug abuse patient.[facility] HospitalIn the event this information is protected by the Federal Confidentiality of Alcohol and Drug Abuse Patient Records regulations: The Federal rules restrict any use of the information to criminally investigate or prosecute any alcohol or drug abuse patient.[facility] HospitalIn the event this information is protected by the Federal Confidentiality of Alcohol and Drug Abuse Patient Records regulations: The Federal rules restrict any use of the information to criminally investigate or prosecute any alcohol or drug abuse patient.[facility] HospitalIn the event this information is protected by the Federal Confidentiality of Alcohol and Drug Abuse Patient Records regulations: The Federal rules restrict any use of the information to criminally investigate or prosecute any alcohol or drug abuse patient.[facility] HospitalIn the event this information is protected by the Federal Confidentiality of Alcohol and Drug Abuse Patient Records regulations: The Federal rules restrict any use of the information to criminally investigate or prosecute any alcohol or drug abuse patient.[facility] HospitalIn the event this information is protected by the Federal Confidentiality of Alcohol and Drug Abuse Patient Records regulations: The Federal rules restrict any use of the information to criminally investigate or prosecute any alcohol or drug abuse patient.[facility] HospitalIn the event this information is protected by the Federal Confidentiality of Alcohol and Drug Abuse Patient Records regulations: The Federal rules restrict any use of the information to criminally investigate or prosecute any alcohol or drug abuse patient.[facility] HospitalIn the event this information is protected by the Federal Confidentiality of Alcohol and Drug Abuse Patient Records regulations: The Federal rules restrict any use of the information to criminally investigate or prosecute any alcohol or drug abuse patient.[facility] HospitalIn the event this information is protected by the Federal Confidentiality of Alcohol and Drug Abuse Patient Records regulations: The Federal rules restrict any use of the information to criminally investigate or prosecute any alcohol or drug abuse patient.[facility] HospitalIn the event this information is protected by the Federal Confidentiality of Alcohol and Drug Abuse Patient Records regulations: The Federal rules restrict any use of the information to criminally investigate or prosecute any alcohol or drug abuse patient.[facility] HospitalIn the event this information is protected by the Federal Confidentiality of Alcohol and Drug Abuse Patient Records regulations: The Federal rules restrict any use of the information to criminally investigate or prosecute any alcohol or drug abuse patient.[facility] HospitalIn the event this information is protected by the Federal Confidentiality of Alcohol and Drug Abuse Patient Records regulations: The Federal rules restrict any use of the information to criminally investigate or prosecute any alcohol or drug abuse patient.[facility] HospitalIn the event this information is protected by the Federal Confidentiality of Alcohol and Drug Abuse Patient Records regulations: The Federal rules restrict any use of the information to criminally investigate or prosecute any alcohol or drug abuse patient.[facility] HospitalIn the event this information is protected by the Federal Confidentiality of Alcohol and Drug Abuse Patient Records regulations: The Federal rules restrict any use of the information to criminally investigate or prosecute any alcohol or drug abuse patient.[facility] HospitalIn the event this information is protected by the Federal Confidentiality of Alcohol and Drug Abuse Patient Records regulations: The Federal rules restrict any use of the information to criminally investigate or prosecute any alcohol or drug abuse patient.[facility] HospitalIn the event this information is protected by the Federal Confidentiality of Alcohol and Drug Abuse Patient Records regulations: The Federal rules restrict any use of the information to criminally investigate or prosecute any alcohol or drug abuse patient.[facility] HospitalIn the event this information is protected by the Federal Confidentiality of Alcohol and Drug Abuse Patient Records regulations: The Federal rules restrict any use of the information to criminally investigate or prosecute any alcohol or drug abuse patient.[facility] HospitalIn the event this information is protected by the Federal Confidentiality of Alcohol and Drug Abuse Patient Records regulations: The Federal rules restrict any use of the information to criminally investigate or prosecute any alcohol or drug abuse patient.[facility] HospitalIn the event this information is protected by the Federal Confidentiality of Alcohol and Drug Abuse Patient Records regulations: The Federal rules restrict any use of the information to criminally investigate or prosecute any alcohol or drug abuse patient.[facility] HospitalIn the event this information is protected by the Federal Confidentiality of Alcohol and Drug Abuse Patient Records regulations: The Federal rules restrict any use of the information to criminally investigate or prosecute any alcohol or drug abuse patient.[facility] HospitalIn the event this information is protected by the Federal Confidentiality of Alcohol and Drug Abuse Patient Records regulations: The Federal rules restrict any use of the information to criminally investigate or prosecute any alcohol or drug abuse patient.[facility] HospitalIn the event this information is protected by the Federal Confidentiality of Alcohol and Drug Abuse Patient Records regulations: The Federal rules restrict any use of the information to criminally investigate or prosecute any alcohol or drug abuse patient.[facility] HospitalIn the event this information is protected by the Federal Confidentiality of Alcohol and Drug Abuse Patient Records regulations: The Federal rules restrict any use of the information to criminally investigate or prosecute any alcohol or drug abuse patient.[facility] HospitalIn the event this information is protected by the Federal Confidentiality of Alcohol and Drug Abuse Patient Records regulations: The Federal rules restrict any use of the information to criminally investigate or prosecute any alcohol or drug abuse patient.[facility] HospitalIn the event this information is protected by the Federal Confidentiality of Alcohol and Drug Abuse Patient Records regulations: The Federal rules restrict any use of the information to criminally investigate or prosecute any alcohol or drug abuse patient.[facility]In the event this information is protected by the Federal Confidentiality of Alcohol and Drug Abuse Patient Records regulations: The Federal rules restrict any use of the information to criminally investigate or prosecute any alcohol or drug abuse patient.[facility] HospitalIn the event this information is protected by the Federal Confidentiality of Alcohol and Drug Abuse Patient Records regulations: The Federal rules restrict any use of the information to criminally investigate or prosecute any alcohol or drug abuse patient.[facility] HospitalIn the event this information is protected by the Federal Confidentiality of Alcohol and Drug Abuse Patient Records regulations: The Federal rules restrict any use of the information to criminally investigate or prosecute any alcohol or drug abuse patient.[facility] HospitalIn the event this information is protected by the Federal Confidentiality of Alcohol and Drug Abuse Patient Records regulations: The Federal rules restrict any use of the information to criminally investigate or prosecute any alcohol or drug abuse patient.[facility] HospitalIn the event this information is protected by the Federal Confidentiality of Alcohol and Drug Abuse Patient Records regulations: The Federal rules restrict any use of the information to criminally investigate or prosecute any alcohol or drug abuse patient.[facility] HospitalIn the event this information is protected by the Federal Confidentiality of Alcohol and Drug Abuse Patient Records regulations: The Federal rules restrict any use of the information to criminally investigate or prosecute any alcohol or drug abuse patient.[facility] HospitalIn the event this information is protected by the Federal Confidentiality of Alcohol and Drug Abuse Patient Records regulations: The Federal rules restrict any use of the information to criminally investigate or prosecute any alcohol or drug abuse patient.[facility] HospitalIn the event this information is protected by the Federal Confidentiality of Alcohol and Drug Abuse Patient Records regulations: The Federal rules restrict any use of the information to criminally investigate or prosecute any alcohol or drug abuse patient.[facility] HospitalIn the event this information is protected by the Federal Confidentiality of Alcohol and Drug Abuse Patient Records regulations: The Federal rules restrict any use of the information to criminally investigate or prosecute any alcohol or drug abuse patient.[facility] HospitalIn the event this information is protected by the Federal Confidentiality of Alcohol and Drug Abuse Patient Records regulations: The Federal rules restrict any use of the information to criminally investigate or prosecute any alcohol or drug abuse patient.[facility] HospitalIn the event this information is protected by the Federal Confidentiality of Alcohol and Drug Abuse Patient Records regulations: The Federal rules restrict any use of the information to criminally investigate or prosecute any alcohol or drug abuse patient.[facility] HospitalIn the event this information is protected by the Federal Confidentiality of Alcohol and Drug Abuse Patient Records regulations: The Federal rules restrict any use of the information to criminally investigate or prosecute any alcohol or drug abuse patient.[facility] HospitalIn the event this information is protected by the Federal Confidentiality of Alcohol and Drug Abuse Patient Records regulations: The Federal rules restrict any use of the information to criminally investigate or prosecute any alcohol or drug abuse patient.[facility] the event this information is protected by the Federal Confidentiality of Alcohol and Drug Abuse Patient Records regulations: The Federal rules restrict any use of the information to criminally investigate or prosecute any alcohol or drug abuse patient.[facility] HospitalIn the event this information is protected by the Federal Confidentiality of Alcohol and Drug Abuse Patient Records regulations: The Federal rules restrict any use of the information to criminally investigate or prosecute any alcohol or drug abuse patient.[facility] HospitalIn the event this information is protected [...] or prosecute any alcohol or drug abuse patient.[facility] HospitalIn the event this information is protected by the Federal Confidentiality of Alcohol and Drug Abuse Patient Records regulations: The Federal rules restrict any use of the information to criminally investigate or prosecute any alcohol or drug abuse patient.[facility] HospitalIn the event this information is protected by the Federal Confidentiality of Alcohol and Drug Abuse Patient Records regulations: The Federal rules restrict any use of the information to criminally investigate or prosecute any alcohol or drug abuse patient.[facility] HospitalIn the event this information is protected by the Federal Confidentiality of Alcohol and Drug Abuse Patient Records regulations: The Federal rules restrict any use of the information to criminally investigate or prosecute any alcohol or drug abuse patient.[facility] HospitalIn the event this information is protected by the Federal Confidentiality of Alcohol and Drug Abuse Patient Records regulations: The Federal rules restrict any use of the information to criminally investigate or prosecute any alcohol or drug abuse patient.[facility] HospitalIn the event this information is protected by the Federal Confidentiality of Alcohol and Drug Abuse Patient Records regulations: The Federal rules restrict any use of the information to criminally investigate or prosecute any alcohol or drug abuse patient.[facility] HospitalIn the event this information is protected by the Federal Confidentiality of Alcohol and Drug Abuse Patient Records regulations: The Federal rules restrict any use of the information to criminally investigate or prosecute any alcohol or drug abuse patient.[facility] HospitalIn the event this information is protected by the Federal Confidentiality of Alcohol and Drug Abuse Patient Records regulations: The Federal rules restrict any use of the information to criminally investigate or prosecute any alcohol or drug abuse patient.[facility] HospitalIn the event this information is protected by the Federal Confidentiality of Alcohol and Drug Abuse Patient Records regulations: The Federal rules restrict any use of the information to criminally investigate or prosecute any alcohol or drug abuse patient.[facility] Reason for Visit (unrecogniz ed section and content) Reason Comments Medication Request Reason Comments No Show Specialty Diagnoses / Procedures Referred By Contac t Referred To Contact Pain Management / PAIN MANAGEMENT Diagnoses follow up from injection Procedures OFFICE/OUTPATIENT [facility] 30-39 MIN VIDEO SPEC EST Denice Gr, SARAI.[facility] [address] [place] [address] Denice Gr, SARAI.[facility] [address] [place] [address] Referral ID Status Reason Start Date Expiration Date Visits Re quested Visits Authorized [id number] Closed 06/20/2021 06/19/2022 1 1 Reason Comments [...] C (HCC) Procedures CONSULT TO HEPATOLOGY OFFICE/OUTPATIENT [facility] 60-74 MINUTES Jaimee Palomares PA-C [address] [place] [address] Referral ID Status Reason Start Date Expiration Date V isits Requested Visits Authorized [id number] Closed PCP Requested Referral 11/16/2021 11/16/2022 1 [...] urgency Procedures CONSULT TO UROLOGY OFFICE/OUTPATIENT [facility] 60-74 MINUTES Denice Gr APRN.[employer] [address] [place] [address] Referral ID Status Reason Start Date Expiration Date V isits Requested Visits Authorized [id number] Closed PCP Requested Referral 12/09/2021 12/09/2022 1 [...] remission Procedures CONSULT TO NEUROLOGY OFFICE/OUTPATIENT [facility] 60-74 MINUTES Jaimee Palomares PA-C [address] [place] [address] Referral ID Status Reason Start Date Expiration Date V isits Requested Visits Authorized [id number] Closed PCP Requested Referral 02/25/2022 02/25/2023 1 1 Reason Comments Results Reason Comments Hospital Follow Up [facility] D[facility] 05/06/22 Syn cope, Hypotension Reason [...] CONSULT TO PHYSICAL THERAPY Shira Kam M, PAPER PATTERN FOLDER.[employer] [address] [place] [address] [facility] [address] [facility] [place] [address] Referral ID Status Reason Start Date Expiration Date Visits Re quested Visits Authorized [id number] Closed 06/16/2022 06/19/2022 1 1 Reason Onset [...] MINUTES Jenifer Yeager APRN.CN [address] [place] [address] Referral ID Status Reason Start Date Expiration Date V isits Requested Visits Authorized [id number] Closed PCP Requested Referral 10/20/2022 10/20/2023 1 1 Reason Comments PT Eval Specialty Diagnoses / Procedures Referred By Contac t Referred To Contact PHYSICAL THERAPY Diagnoses Primary osteoarthritis of right hip Lumbar radiculopathy Procedures CONSULT TO PHYSICAL THERAPY Ibeth Albert PA-C [address] [place] [address] [place] [address] Referral ID Status Reason Start Date Expiration Date V isits Requested Visits Authorized [id number] Authorized 02/09/2023 06/10/2023 20 20 Reason Onset Date Comments Refill Request 02/28/2023 Reason Comments Physical Therapy Specialty Diagnoses / Procedures Referred By Contac t Referred To Contact PHYSICAL THERAPY Diagnoses Primary osteoarthritis of right hip Lumbar radiculopathy Procedures CONSULT TO PHYSICAL THERAPY Ibeth Albert PA-C [address] [place] [address] Pt [facility] [place] [address] Reason Comments Radiology US Specialty Diagnoses / Procedures Referred By Contac t Referred To Contact BR IMAGING Diagnoses Breast pain Procedures US BREAST LTD RT US BREAST UNI REAL TIME WITH IMAGE LIMITED Meom Huber MD [address] [place] [address] [facility] [address] [place] [address] Referral ID Status Reason Start Date Expiration Date V isits Requested Visits Authorized [id number] Closed Auto-Generate d Referral 07/29/2022 08/28/2023 1 1 Specialty Diagnoses / Procedures Referred By Contac t Referred To Contact MR IMAGING Diagnoses Transient cerebral ischemia, unspecified type Balance problem Falls frequently Procedures MRI BRAIN WO IVCON MRI BRAIN BRAIN STEM W/O CONTRAST MATERIAL Urvashi Hughes, PAPER PATTERN FOLDER.[employer] [address] [place] [address] [place] [address] Referral ID Status Reason Start Date Expiration Date V isits Requested Visits Authorized [id number] Closed Auto-Generate d Referral 01/12/2023 03/13/2023 1 1 Reason Comments ER F/U Numbness and tinglin g in Bilateral hands Care Teams (unrecognized sec tion and content) Perishable Fruit Inspector Relationship Specialty Start Date End Date Jaimee Palomares PA-C [address] [place] [address] PCP - General Family Practice 09/09/16 Perishable Fruit Inspector Relationship Specialty Start Date End Date Jaimee Palomares PA-C [address] [place] [address] PCP - General Family Practice 09/09/16 Perishable Fruit Inspector Relationship Specialty Start Date End Date Jaimee Palomares PA-C [address] [place] [address] PCP - General Family Practice 09/09/16 Perishable Fruit Inspector Relationship Specialty Start Date End Date Jaimee Palomares PA-C [address] [place] [address] PCP - General Family Practice 09/09/16 Perishable Fruit Inspector Relationship Specialty Start Date End Date Jaimee Palomares PA-C [address] [place] [address] PCP - General Family Practice 09/09/16 Perishable Fruit Inspector Relationship Specialty Start Date End Date Jaimee Palomares PA-C [address] [facility] [place] [address] PCP - General Family Practice 09/09/16 Perishable Fruit Inspector Relationship Specialty Start Date End Date Jaimee Palomares PA-C [address] [place] [address] PCP - General Family Practice 09/09/16 Perishable Fruit Inspector Relationship Specialty Start Date End Date Jaimee Palomares PA-C [address] [facility] [place] [address] PCP - General Family Practice 09/09/16 Perishable Fruit Inspector Relationship Specialty Start Date End Date Jaimee Palomares PA-C [address] [facility] [place] [address] PCP - General Family Practice 09/09/16 Perishable Fruit Inspector Relationship Specialty Start Date End Date Jaimee Palomares PA-C [address] [facility] [place] [address] PCP - General Family Practice 09/09/16 Perishable Fruit Inspector Relationship Specialty Start Date End Date Jaimee Palomares PA-C [address] [facility] [place] [address] PCP - General Family Practice 09/09/16 Perishable Fruit Inspector Relationship Specialty Start Date End Date Jaimee Palomares PA-C [address] [facility] [place] [address] PCP - General Family Practice 09/09/16 Perishable Fruit Inspector Relationship Specialty Start Date End Date Jaimee Palomares PA-C [address] [facility] [place] [address] PCP - General Family Practice 09/09/16 Perishable Fruit Inspector Relationship Specialty Start Date End Date Jaimee Palomares PA-C [address] [facility] [place] [address] PCP - General Family Practice 09/09/16 Perishable Fruit Inspector Relationship Specialty Start Date End Date Jaimee Palomares PA-C [address] [facility] [place] [address] PCP - General Family Practice 09/09/16 Perishable Fruit Inspector Relationship Specialty Start Date End Date Jaimee Palomares PA-C [address] [facility] [place] [address] PCP - General Family Practice 09/09/16 Perishable Fruit Inspector Relationship Specialty Start Date End Date Jaimee Palomares PA-C [address] [facility] [place] [address] PCP - General Family Practice 09/09/16 Perishable Fruit Inspector Relationship Specialty Start Date End Date Jaimee Palomares PA-C [address] [facility] [place] [address] PCP - General Family Practice 09/09/16 Perishable Fruit Inspector Relationship Specialty Start Date End Date Jaimee Palomares PA-C [address] [facility] [place] [address] PCP - General Family Practice 09/09/16 Perishable Fruit Inspector Relationship Specialty Start Date End Date Jaimee Palomares PA-C [address] [facility] [place] [address] PCP - General Family Practice 09/09/16 Perishable Fruit Inspector Relationship Specialty Start Date End Date Jaimee Palomares PA-C [address] [facility] [place] [address] PCP - General Family Practice 09/09/16 Perishable Fruit Inspector Relationship Specialty Start Date End Date Jaimee Palomares PA-C [address] [facility] [place] [address] PCP - General Family Practice 09/09/16 Perishable Fruit Inspector Relationship Specialty Start Date End Date Jaimee Palomares PA-C [address] [facility] [place] [address] PCP - General Family Practice 09/09/16 Perishable Fruit Inspector Relationship Specialty Start Date End Date Jaimee Palomares PA-C [address] [facility] [place] [address] PCP - General Family Practice 09/09/16 Perishable Fruit Inspector Relationship Specialty Start Date End Date Jaimee Palomares PA-C [address] [facility] [place] [address] PCP - General Family Practice 09/09/16 Perishable Fruit Inspector Relationship Specialty Start Date End Date Jaimee Palomares PA-C [address] [facility] [place] [address] PCP - General Family Practice 09/09/16 Perishable Fruit Inspector Relationship Specialty Start Date End Date Jaimee Palomares PA-C [address] [facility] [place] [address] PCP - General Family Practice 09/09/16 Perishable Fruit Inspector Relationship Specialty Start Date End Date Jaimee Palomares PA-C [address] [facility] [place] [address] PCP - General Family Practice 09/09/16 Perishable Fruit Inspector Relationship Specialty Start Date End Date Jaimee Palomares PA-C [address] [facility] [place] [address] PCP - General Family Practice 09/09/16 Perishable Fruit Inspector Relationship Specialty Start Date End Date Jaimee Palomares PA-C [address] [facility] [place] [address] PCP - General Family Practice 09/09/16 Perishable Fruit Inspector Relationship Specialty Start Date End Date Jaimee Palomares PA-C [address] [facility] [place] [address] PCP - General Family Practice 09/09/16 Perishable Fruit Inspector Relationship Specialty Start Date End Date Jaimee Palomares PA-C [address] [facility] [place] [address] PCP - General Family Practice 09/09/16 Perishable Fruit Inspector Relationship Specialty Start Date End Date Jaimee Palomares PA-C [address] [facility] [place] [address] PCP - General Family Practice 09/09/16 Perishable Fruit Inspector Relationship Specialty Start Date End Date Jaimee Palomares PA-C [address] [facility] [place] [address] PCP - General Family Practice 09/09/16 Perishable Fruit Inspector Relationship Specialty Start Date End Date Jaimee Palomares PA-C [address] [facility] [place] [address] PCP - General Family Practice 09/09/16 Perishable Fruit Inspector Relationship Specialty Start Date End Date Jaimee Palomares PA-C [address] [facility] [place] [address] PCP - General Family Medicine 09/09/16 Perishable Fruit Inspector Relationship Specialty Start Date End Date Jaimee Palomares PA-C [address] [facility] [place] [address] PCP - General Family Medicine 09/09/16 Perishable Fruit Inspector Relationship Specialty Start Date End Date Jaimee Palomares PA-C [address] [facility] [place] [address] PCP - General Family Medicine 09/09/16 Perishable Fruit Inspector Relationship Specialty Start Date End Date Jaimee Palomares PA-C [address] [facility] [place] [address] PCP - General Family Medicine 09/09/16 Perishable Fruit Inspector Relationship Specialty Start Date End Date Jaimee Palomares PA-C [address] [facility] [place] [address] PCP - General Family Medicine 09/09/16 Perishable Fruit Inspector Relationship Specialty Start Date End Date Jaimee Palomares PA-C [address] [place] [address] PCP - General Family Medicine 09/09/16 Perishable Fruit Inspector Relationship Specialty Start Date End Date Jaimee Palomares PA-C [address] [place] [address] PCP - General Family Medicine 09/09/16 Perishable Fruit Inspector Relationship Specialty Start Date End Date Jaimee Palomares PA-C [address] [facility] [place] [address] PCP - General Family Medicine 09/09/16 Perishable Fruit Inspector Relationship Specialty Start Date End Date Jaimee Palomares PA-C [address] [facility] [place] [address] PCP - General Family Medicine 09/09/16 Perishable Fruit Inspector Relationship Specialty Start Date End Date Jaimee Palomares PA-C [address] [facility] [place] [address] PCP - General Family Medicine 09/09/16 Perishable Fruit Inspector Relationship Specialty Start Date End Date Jaimee Palomares PA-C [address] [place] [address] PCP - General Family Medicine 09/09/16 Perishable Fruit Inspector Relationship Specialty Start Date End Date Jaimee Palomares PA-C [address] [place] [address] PCP - General Family Medicine 09/09/16 Perishable Fruit Inspector Relationship Specialty Start Date End Date Jaimee Palomares PA-C [address] [facility] [place] [address] PCP - General Family Medicine 09/09/16 Perishable Fruit Inspector Relationship Specialty Start Date End Date Jaimee Palomares PA-C [address] [facility] [place] [address] PCP - General Family Medicine 09/09/16 Perishable Fruit Inspector Relationship Specialty Start Date End Date Jaimee Palomares PA-C [address] [facility] [place] [address] PCP - General Family Medicine 09/09/16 Perishable Fruit Inspector Relationship Specialty Start Date End Date Jaimee Palomares PA-C [address] [facility] [place] [address] PCP - General Family Medicine 09/09/16 Perishable Fruit Inspector Relationship Specialty Start Date End Date Jaimee Palomares PA-C [address] [facility] [place] [address] PCP - General Family Medicine 09/09/16 Perishable Fruit Inspector Relationship Specialty Start Date End Date Jaimee Palomares PA-C [address] [facility] [place] [address] PCP - General Family Medicine 09/09/16 Perishable Fruit Inspector Relationship Specialty Start Date End Date Jaimee Palomares PA-C [address] [facility] [place] [address] PCP - General Family Medicine 09/09/16 Perishable Fruit Inspector Relationship Specialty Start Date End Date Jaimee Palomares PA-C [address] [facility] [place] [address] PCP - General Family Medicine 09/09/16 Perishable Fruit Inspector Relationship Specialty Start Date End Date Jaimee Palomares PA-C [address] [facility] [place] [address] PCP - General Family Medicine 09/09/16 Perishable Fruit Inspector Relationship Specialty Start Date End Date Jaimee Palomares PA-C [address] [facility] [place] [address] PCP - General Family Medicine 09/09/16 Perishable Fruit Inspector Relationship Specialty Start Date End Date Jaimee Palomares PA-C [address] [facility] [place] [address] PCP - General Family Medicine 09/09/16 Perishable Fruit Inspector Relationship Specialty Start Date End Date Jaimee Palomares PA-C [address] [facility] [place] [address] PCP - General Family Medicine 09/09/16 Perishable Fruit Inspector Relationship Specialty Start Date End Date Jaimee Palomares PA-C [address] [facility] [place] [address] PCP - General Family Medicine 09/09/16 Perishable Fruit Inspector Relationship Specialty Start Date End Date Jaimee Palomares PA-C [address] [facility] [place] [address] PCP - General Family Medicine 09/09/16 Perishable Fruit Inspector Relationship Specialty Start Date End Date Jaimee Palomares PA-C [address] [facility] [place] [address] PCP - General Family Medicine 09/09/16 Perishable Fruit Inspector Relationship Specialty Start Date End Date Jaimee Palomares PA-C [address] [facility] [place] [address] PCP - General Family Medicine 09/09/16 Perishable Fruit Inspector Relationship Specialty Start Date End Date Jaimee Palomares PA-C [address] [facility] [place] [address] PCP - General Family Medicine 09/09/16 Perishable Fruit Inspector Relationship Specialty Start Date End Date Jaimee Palomares PA-C [address] [facility] [place] [address] PCP - General Family Medicine 09/09/16 Perishable Fruit Inspector Relationship Specialty Start Date End Date Jaimee Palomares PA-C [address] [place] [address] PCP - General Family Medicine 09/09/16 Perishable Fruit Inspector Relationship Specialty Start Date End Date Jaimee Palomares PA-C [address] [place] [address] PCP - General Family Medicine 09/09/16 Perishable Fruit Inspector Relationship Specialty Start Date End Date Jaimee Palomares PA-C [address] [place] [address] PCP - General Family Medicine 09/09/16 Perishable Fruit Inspector Relationship Specialty Start Date End Date Jaimee Palomares PA-C [address] [place] [address] PCP - General Family Medicine 09/09/16 Perishable Fruit Inspector Relationship Specialty Start Date End Date Jaimee Palomares PA-C [address] [place] [address] PCP - General Family Medicine 09/09/16 Perishable Fruit Inspector Relationship Specialty Start Date End Date Jaimee Palomares PA-C [address] [place] [address] PCP - General Family Medicine 09/09/16 Perishable Fruit Inspector Relationship Specialty Start Date End Date Jaimee Palomares PA-C [address] [place] [address] PCP - General Family Medicine 09/09/16 Perishable Fruit Inspector Relationship Specialty Start Date End Date Jaimee Palomares PA-C [address] [facility] [place] [address] PCP - General Family Medicine 09/09/16 Perishable Fruit Inspector Relationship Specialty Start Date End Date Jaimee Palomares PA-C [address] [facility] [place] [address] PCP - General Family Medicine 09/09/16 Perishable Fruit Inspector Relationship Specialty Start Date End Date Jaimee Palomares PA-C [address] [facility] [place] [address] PCP - General Family Medicine 09/09/16 Perishable Fruit Inspector Relationship Specialty Start Date End Date Jaimee Palomares PA-C [address] [facility] [place] [address] PCP - General Family Medicine 09/09/16 Perishable Fruit Inspector Relationship Specialty Start Date End Date Jaimee Palomares PA-C [address] [facility] [place] [address] PCP - General Family Medicine 09/09/16 Perishable Fruit Inspector Relationship Specialty Start Date End Date Jaimee Palomares PA-C [address] [facility] [place] [address] PCP - General Family Medicine 09/09/16 Perishable Fruit Inspector Relationship Specialty Start Date End Date Jaimee Palomares PA-C [address] [facility] [place] [address] PCP - General Family Medicine 09/09/16 PRN [...] BE BASED ON THE PRIMARY CLINICAL RECORDS. [email or web address] [facility]. provides no warranty or guarantee of the accuracy or completeness of information in this document.
--- NOTE | 2023-06-25 18:10 | RAD_ITS ---
STUDY: X-RAY - CERVICAL SPINE REASON FOR EXAM: Female, 53 years old. hx neck surgery, worsened pain and weakness TECHNIQUE: 2 view(s) of the cervical spine were obtained. COMPARISON: 06/21/2023 FINDINGS: Normal anterior atlantoaxial articulation. Normal odontoid process. There is straightening of the normal cervical lordosis. Stable alignment. Similar anterolisthesis C4-C5. Stable appearance of anterior fixation plate, screws and disc spacers at C3-C5. No obvious fracture. The soft tissue structures are unremarkable. RAD/Cerv Spine 2 or 3 Views IMPRESSION: Stable alignment. C3-C5 anterior cervical fusion. Electronically Signed: Ren Nicole MD (Brooks) at 18:23 EST ,
[2023-06-25 18:27] VITALS: BMI 29.8
[2023-06-25] MEDS: 0.9% Normal Saline (1000mL) 1,000 ML 75 ML IV (18:52)
[2023-06-25] MEDS: Ipratropium 0.5 MG/2.5 ML SOLUTION INHALATION (19:39)
[2023-06-25 19:40] VITALS: PULSE 75; RESP 18
[2023-06-25 19:41] VITALS: O2SAT 96
[2023-06-25] MEDS: Pregabalin 75 MG Capsule 150 MG PO (22:57)
[2023-06-25] MEDS: Acetaminophen 500 MG Tablet 1000 MG PO (22:58)
[2023-06-25] MEDS: Baclofen 10 MG Tablet 5 MG PO (22:58)
[2023-06-25] MEDS: traZODone 100 MG Tablet 150 MG PO (22:58)
[2023-06-25] MEDS: Atorvastatin Calcium 40 MG Tablet PO (23:00)
[2023-06-25] MEDS: dexAMETHasone 10 MG/ML Vial IV (23:00)
[2023-06-25 23:04] VITALS: BP 93/61; PULSE 72; RESP 16; TEMP 36.4; O2SAT 100
[2023-06-25] MEDS: oxyCODONE 5 MG Tablet PO (23:36)
[2023-06-26] VITALS (7 sets, daily range): BP systolic 92–131; BP diastolic 55–86; PULSE 72–88; RESP 16–18; TEMP 36.6–36.9; O2SAT 93–98
[2023-06-26] MEDS: dexAMETHasone 4 MG/ML Vial IV ×5 (01:10→22:54)
[2023-06-26] MEDS: Pregabalin 75 MG Capsule 150 MG PO ×3 (05:48→21:44)
[2023-06-26] MEDS: Levothyroxine 25 MCG TABLET PO (05:49)
[2023-06-26] MEDS: Acetaminophen 500 MG Tablet 1000 MG PO ×3 (05:49→21:44)
[2023-06-26] MEDS: Ipratropium 0.5 MG/2.5 ML SOLUTION INHALATION ×3 (06:59→19:04)
--- NOTE | 2023-06-26 07:10 | PN.HOSP_ITS ---
Reason for Visit Reason for Visit: Diagnoses Hypothyroidism, unspecified (06/25/23) Weakness (06/25/23) Tobacco use (06/25/23) Arthrodesis status (06/25/23) Other specified postprocedural states (06/25/23) Subjective Subjective Patient is a 53-year-old lady with recent C3-5 anterior cervical discectomy and fusion with plate instrumentation by Dr. Kendall Skinner on 05/18/2023, recent hospitalization from 06/17/2023 to 06/21/2023 who presented with progressive generalized weakness in arms and legs Objective Data Objective Data Vital Signs: Vital Signs Temp Pulse Resp BP Pulse Ox O2 Del Method O2 Flow Rate 98.5 F 72 16 92/55 L 98 Nasal Cannula 2 06/26/23 05:43 06/26/23 05:43 06/26/23 05:43 06/26/23 05:43 06/26/23 05:43 06/26/23 05:43 06/26/23 05:43 Oxygen Flow Rate (L/min) 2 Oxygen Delivery Method Nasal Cannula Weight: 86.2 kg Body Mass Index (BMI) 29.8 Intake & Output: Intake and Output for Last 24 Hours 06/24/23 06/25/23 06/26/23 23:59 23:59 23:59 Intake Total 1000 / 1300 650 / 650 Output Total 700 / 700 Balance 1000 / 1300 -50 / -50 Lab / Micro Data 06/26/23 06:54 06/26/23 06:54 Labs: Laboratory Results - last 24 hr 06/25/23 13:19: WBC 8.9, RBC 4.42, Hgb 12.8, Hct 39.0, MCV 88.2, MCH 29.0, MCHC 32.8, RDW Std Deviation 42.8, RDW Coeff of Sandeep 13.2, Plt Count 442, MPV 10.3, Immature Gran % (Auto) 1.000 H, Neut % (Auto) 55.8, Lymph % (Auto) 26.1, [place] % (Auto) 12.2 H, Eos % (Auto) 4.0, Baso % (Auto) 0.9, Absolute Neuts (auto) 5.0, Absolute Lymphs (auto) 2.31, Nucleated RBC % 0, Sodium 137, Potassium 3.7, Chloride 102, Carbon Dioxide 28.0, Anion Gap 7, BUN 39 H, Creatinine 1.05 H, Est GFR (MDRD) Af Amer 70, Est GFR (MDRD) Non-Af 58 L, BUN/Creatinine Ratio 37.1 H, Glucose 121 H, Calcium 8.5 06/25/23 15:15: Urine Color Yellow, Urine Clarity Clear, Urine pH 5.0, Ur Specific [place] 1.025, Urine Protein 15 H, Urine Glucose (UA) Normal, Urine Ketones Negative, Urine Occult Blood Negative, Urine Nitrite Negative, Urine Bilirubin Negative, Urine Urobilinogen Normal, Ur Leukocyte Esterase 25 H, Urine RBC 0 SEEN, Urine WBC 0-5 SEEN, Ur Squamous Epith Cells 0-5 SEEN, Urine Bacteria 0 SEEN, Hyaline Casts 0-5 SEEN, Urine Mucus 0 SEEN Radiography Diagnostic Testing: Radiology Impression Cervical Spine X-Ray 06/25/23 18:10 IMPRESSION: Stable alignment. C3-C5 anterior cervical fusion. Electronically Signed: Ren Nicole MD (Brooks) at 18:23 EST Reading Location ID and State: [facility] / [place] , Service support , Physical Exam Narrative GENERAL: cooperative HEENT: Neck immobilized EYES; Anicteric, Normal Conjunctiva NECK; supple, normal thyroid, RESPIRATORY: Diminished to auscultation CARDIOVASCULAR: Regular S1 S2, GI: soft, normoactive bowel sounds, : No Renal angle tenderness; EXTREMITIES: No edema, no clubbing, MUSCULOSKELETAL: no muscle wasting NEURO: Awake; no lateralizing signs. SKIN: No Rash PSYCH; Flat affect Assessment & Plan Assessment/Plan (1) Generalized weakness: (2) History of neck surgery: (3) Hypothyroidism: QUALIFIERS: Hypothyroidism type: unspecified Qualified Code(s): E03.9 - Hypothyroidism, unspecified (4) S/P cervical spinal fusion: (5) Tobacco use: PLAN: Plan Patient is a 53-year-old lady with recent C3-5 anterior cervical discectomy and fusion with plate instrumentation by Dr. Kendall Skinner on 05/18/2023, recent hospitalization from 06/17/2023 to 06/21/2023 who presented with progressive generalized weakness in arms and legs 1. Physical deconditioning in the context of recent C3-C5 cervical discectomy with fusion. Patient admitted to regular nursing floor. Cervical x-ray obtained on admission demonstrated stable cervical fusion.- Requested for PT OT eval and manager social responsibility to assist with discharge planning. Consult was also placed to patient spine surgeon. Case was discussed with patient spine surgeon recommended initiation of steroids 2. Acute kidney injury ? Secondary to dehydration patient be managed with IV fluid with subsequent monitoring of electrolytes ordered 3. COPD ? Currently not in exacerbation aerosol treatment as needed 4. Chronic pain ? Continued with current pain regimen 5. Hypothyroidism - Patient is on levothyroxine home dose continued 6. Hypertension - Blood pressure controlled, home medications continued with dose adjustment as needed 7. GERD ? On PPI 8. Psychiatric disorder NOS -Continue home psychotropic medications 9. Tobacco dependence - Counseled on cessation, offered nicotine patch for tobacco cravings 12. DVT prophylaxis ? Bilateral SCDs for now Time spent in the patient's overall evaluation,decision-making process, review of diagnostic data, adjustment of management, discussion with other providers, nursing nursing and ancillary staff involved in patient's care documentation, 40 Minutes Charges/Coding Visit Charges Inpatient E&M: 24610 Subs Hosp L2
[2023-06-26 07:13] LABS: Absolute Lymphocyte Count 0.64 X10^3/uL (0.83-4.51); Absolute Neutrophil Count 7.3 X10^3/uL (2.0-7.7); Basophil# 0.01 X10^3/uL; Basophil% 0.1 % (0-1); Hemoglobin 11.9 g/dL (12.0-15.0); Lymphocyte # 0.64 X10^3/ul (0.83-4.51); Mean Corp Hgb Conc 33.1 g/dL (32-36); Mean Corpuscular Hgb 29.8 pg (27.0-32.0); Mean Platelet Vol. 10.2 fl (6.2-12.0); Monocyte# 0.07 X10^3/uL; Monocyte% 0.9 % (0-10); NRBC Flagged by Analyzer 0 % (0-5); Neutrophil # 7.26 X10^3/uL (2.7-7.7); Neutrophil % 90.3 % (47-70); Platelet Count 351 K/mm3 (150-450); RBC Distribution Width SD 42.8 fl (35.1-43.9)
[2023-06-26 07:32] LABS: ALB/GLOB Ratio 0.7 RATIO (0.9-2.4); AST(SGOT) 35 U/L (15-37); Alanine Aminotransfer ALT/SGPT 48 U/L (13-56); Albumin, Serum 2.8 g/dL (3.2-5.0); Alkaline Phosphatase 89 U/L (45-117); Anion Gap 4 (5-15); BUN 41 mg/dL (7-18); BUN/Creat Ratio 39.8 RATIO (10-20); Calcium,Total 8.8 mg/dL (8.5-10.1); Chloride 106 mmol/L (98-107); Creatinine, Serum 1.03 mg/dL (0.55-1.02); EST Glomerular Filtration Rate 59 mL/min (>60); Est Glom Filt Rate - Afr Amer 72 mL/min (>60); Estimated Creatinine Clearance 57.77 ml/min; Globulin 4.1 g/dL (2.2-4.2); Glucose 191 mg/dL (74-106); Potassium 4.6 mmol/L (3.5-5.1); Protein, Total 6.9 g/dL (6.4-8.2); Sodium Level 136 mmol/L (136-145)
[2023-06-26] MEDS: 0.9% Normal Saline (1000mL) 1,000 ML 75 ML IV (09:55)
[2023-06-26] MEDS: oxyCODONE 5 MG Tablet PO ×2 (10:09→21:47)
[2023-06-26] MEDS: buPROPion (XL) 300 MG TABLET.XL PO (10:10)
[2023-06-26] MEDS: Baclofen 10 MG Tablet 5 MG PO ×2 (10:10→21:44)
[2023-06-26] MEDS: Pantoprazole Sodium 20 MG Tablet PO (10:11)
[2023-06-26] MEDS: OLANZapine 10 MG Tablet PO (10:11)
[2023-06-26] MEDS: Mirabegron 25 MG TAB.ER.24H PO (10:11)
[2023-06-26] MEDS: Influenza Virus Vac Quad 23-24 60 MCG/0.5 ML SYRINGE IM (10:31)
--- NOTE | 2023-06-26 10:34 | CONS.ORTHO ---
HPI Consult Data Date of Consult: 06/26/23 HPI Narrative HPI Narrative: KAMI JARQUIN, is a 53 F who presents with worsening weakness in all 4 extremities. She was admitted yesterday and I was consulted. I saw her this morning. She was recently discharged home with a plan of home PT on 06/21/23. A day after she went home, she had a sudden jerk movement and turn of her neck which led to severe pain. Since this incident, she has noticed significant weakness worse on the left arm and left leg. Previously she underwent C3-5 ACDF on 05/18/23 for severe progressive myelopathy with cord compression cortical changes. She recovered well after the surgery and was discharged to rehab where she stayed for 2 to 3 weeks. She had good maintenance of alignment at her 2-week follow-up visit in clinic on 06/01/2023. She then had a fall hurting her head and was readmitted on 06/17/2023. She was noticed to have a C3 fracture with subsidence and loosening of C3 screws. Due to good fixation in C4 and C5, this was treated nonsurgically with continued collar immobilization and PT OT. She improved from weakness of 4 - strength in all 4 extremities to 4+ over 4 days and was discharged on 06/21/2023. She denies any dysphagia, but has trouble eating by herself as she drops things from her spoon and fork. She is able to stand and transfer but her walking and balance have significantly worsened. She has been unable to take care of herself at home. She was not able to have for home physical therapy over the 3 days that she was at home. She is concerned about the new worsening weakness on her left arm and left leg. [facility] Medical History Acute cholecystitis Acute hyponatremia Acute pancreatitis Alcohol abuse Alcohol withdrawal Ambulates with cane Anemia Anemia of unknown etiology Anxiety Arthritis Bipolar disorder Chronic pain COPD (chronic obstructive pulmonary disease) Depression Desire for detoxification Distal radius fracture, right Easy bruising Elevated LFTs Excessive bleeding Gastric reflux High cholesterol History of edema Hyperglycemia Hypertension Hypothyroidism Marijuana use Migraines On home oxygen therapy Osteoporosis Pulmonary embolism Pulmonary embolism Recurrent syncope Renal insufficiency Restless legs Shortness of breath on exertion Sleep apnea Smoker Transient hypotension Walker as ambulation aid Wears glasses Home Medications bupropion HCl 150 mg tablet,12 hr sustained-release (Wellbutrin SR) 300 mg PO DAILY depression 04/30/21 [History Last Taken 06/16/23] ferrous sulfate 325 mg (65 mg iron) tablet 325 mg PO BID supplement 04/30/21 [History Last Taken 06/16/23] levothyroxine 25 mcg tablet 25 mcg PO DAILY hypothyroid 04/30/21 [History Last Taken 06/16/23] tiotropium bromide 2.5 mcg/actuation mist for inhalation (Spiriva Respimat) 2 puff inhalation DAILY COPD 04/30/21 [History Last Taken 06/16/23] albuterol sulfate 2.5 mg/3 mL (0.083 %) solution for nebulization 2.5 mg inhalation Q6H PRN PRN Shortness Of Breath Or Wheezing 10/12/21 [History Last Taken 06/16/23] albuterol sulfate 90 mcg/actuation aerosol inhaler (Ventolin HFA) 1 puff inhalation Q4H PRN PRN Shortness Of Breath Or Wheezing 10/12/21 [History Last Taken 05/14/23 10:00 1 puff] cholecalciferol (vitamin D3) 25 mcg (1,000 unit) capsule (Vitamin D3) 25 mcg PO DAILY vitamin 10/12/21 [History Last Taken 06/16/23] atorvastatin 40 mg tablet 40 mg PO QHS cholesterol 02/03/22 [History Last Taken 06/16/23] omeprazole 20 mg capsule,delayed release 20 mg PO DAILY reflux 03/25/22 [History Last Taken 06/16/23] baclofen 10 mg tablet 5 mg (1/2 x 10 mg) PO BID pain #30 tabs 05/06/22 [Rx Last Taken 06/16/23] cyanocobalamin (vitamin B-12) 1,000 mcg tablet (Vitamin B-12) 1,000 mcg PO DAILY supplement 07/27/22 [History Last Taken 06/16/23] mirabegron 25 mg tablet,extended release 24 hr (Myrbetriq) 25 mg PO DAILY OVERACTIVE BLADDER 07/27/22 [History Last Taken 06/16/23] olanzapine 10 mg tablet 10 mg PO DAILY MOOD 10/28/22 [History Last Taken 06/16/23] oxybutynin chloride 10 mg tablet,extended release 24 hr 10 mg PO DAILY OVERACTIVE BLADDER 10/28/22 [History Last Taken 06/16/23] trazodone 150 mg tablet 150 mg PO QHS SLEEP 10/28/22 [History Last Taken 06/16/23] amlodipine 10 mg tablet 10 mg PO DAILY bp #30 tabs 12/29/22 [Rx Last Taken 06/16/23] metoprolol succinate 50 mg tablet,extended release 24 hr 50 mg PO DAILY bp 05/15/23 [History Last Taken 06/16/23] budesonide 0.5 mg/2 mL suspension for nebulization 0.5 mg (2 mL) inhalation Q12H.RT #0 mL 05/23/23 [Rx Last Taken 06/16/23] nut.tx.comp. immune systm,reg 0.08 gram-1.4 kcal/mL oral liquid (Ensure Surgery) 237 ml PO TIDCM #0 mL 05/23/23 [Rx Last Taken 06/08/23] pregabalin 150 mg capsule (Lyrica) 150 mg PO TID pain 3 days #9 caps 05/23/23 [Rx Last Taken 06/16/23] acetaminophen 500 mg tablet 1,000 mg (2 x 500 mg) PO Q8 #0 tabs 06/21/23 [Rx Last Taken Unknown] meloxicam 15 mg tablet 7.5 mg (1/2 x 15 mg) PO DAILY 30 days #15 tabs 06/21/23 [Rx Last Taken Unknown] polyethylene glycol 3350 17 gram oral powder packet 17 g PO BID #0 ea 06/21/23 [Rx Last Taken Unknown] Allergy/AdvReac Type Severity Reaction Status Date / Time fentanyl Allergy Anaphylaxis Verified 06/25/23 13:07 varenicline [From Chantix] AdvReac hallucinati Verified 06/25/23 13:07 ons Family History Other Cancer Surgical History H/O skin graft H/O: hysterectomy Hx of cholecystectomy Hx of tonsillectomy Social History household members: none Smoking Status: Light Smoker (<10/day) alcohol intake: former substance use type: marijuana additional social history: disabled Vital Signs Vital Signs Vital Signs: 06/25/23 13:07 06/25/23 13:12 06/25/23 17:14 Temperature 97.9 F Temperature Source Oral Pulse Rate 78 81 Pulse Strength Respiratory Rate 18 Respiratory Effort Normal Non-Labored Respiratory Depth Respiratory Pattern Normal Blood Pressure 94/70 122/70 H Blood Pressure Mean 78 87 Blood Pressure Source Blood Pressure Position Blood Pressure Location Pulse Ox 93 98 Oxygen Delivery Method Room Air Oxygen Flow Rate (L/min) 06/25/23 17:46 06/25/23 19:40 06/25/23 19:41 Temperature 97.8 F Temperature Source Oral Pulse Rate 73 75 Pulse Strength Respiratory Rate 16 18 Respiratory Effort Respiratory Depth Respiratory Pattern Normal Blood Pressure 85/56 L Blood Pressure Mean 65 Blood Pressure Source Monitor Blood Pressure Position Semi-Fowlers Blood Pressure Location Right Arm Pulse Ox 99 96 Oxygen Delivery Method Nasal Cannula Nasal Cannula Oxygen Flow Rate (L/min) 3 2 06/25/23 23:04 06/25/23 23:11 06/25/23 22:00 Temperature 97.5 F L Temperature Source Oral Pulse Rate 72 Pulse Strength Normal (2+) Respiratory Rate 16 Respiratory Effort Normal Non-Labored Respiratory Depth Normal Respiratory Pattern Normal Blood Pressure 93/61 Blood Pressure Mean 71 Blood Pressure Source Monitor Blood Pressure Position Semi-Fowlers Blood Pressure Location Right Arm Pulse Ox 100 Oxygen Delivery Method Nasal Cannula Oxygen Flow Rate (L/min) 2 06/26/23 05:43 06/26/23 08:32 06/26/23 08:48 Temperature 98.5 F Temperature Source Oral Pulse Rate 72 Pulse Strength Respiratory Rate 16 Respiratory Effort Respiratory Depth Respiratory Pattern Blood Pressure 92/55 L Blood Pressure Mean 67 Blood Pressure Source Monitor Blood Pressure Position Left Lateral Blood Pressure Location Right Arm Pulse Ox 98 Oxygen Delivery Method Nasal Cannula Oxygen Flow Rate (L/min) 2 2 2 06/26/23 06:59 06/26/23 06:59 06/26/23 10:01 Temperature 98.0 F Temperature Source Oral Pulse Rate 78 81 Pulse Strength Respiratory Rate 18 18 Respiratory Effort Respiratory Depth Respiratory Pattern Blood Pressure 123/86 H Blood Pressure Mean 98 Blood Pressure Source Monitor Blood Pressure Position Sitting Blood Pressure Location Right Arm Pulse Ox 93 97 Oxygen Delivery Method Nasal Cannula Nasal Cannula Oxygen Flow Rate (L/min) 2 2 Weight Weight: 190 lb 0.615 oz Body Mass Index (BMI) 29.8 Physical Exam Narrative Examination of the neck shows ACDF incision well-healed.Collar well-fitting. There examination shows grade 4 - power in right upper and right lower extremities, grade 3 in left upper and left lower extremities. Lab / Micro Data 06/26/23 06:54 06/26/23 06:54 Labs: Laboratory Results - last 24 hr 06/25/23 13:19: WBC 8.9, RBC 4.42, Hgb 12.8, Hct 39.0, MCV 88.2, MCH 29.0, MCHC 32.8, RDW Std Deviation 42.8, RDW Coeff of Sandeep 13.2, Plt Count 442, MPV 10.3, Immature Gran % (Auto) 1.000 H, Neut % (Auto) 55.8, Lymph % (Auto) 26.1, [place] % (Auto) 12.2 H, Eos % (Auto) 4.0, Baso % (Auto) 0.9, Absolute Neuts (auto) 5.0, Absolute Lymphs (auto) 2.31, Nucleated RBC % 0, Sodium 137, Potassium 3.7, Chloride 102, Carbon Dioxide 28.0, Anion Gap 7, BUN 39 H, Creatinine 1.05 H, Est GFR (MDRD) Af Amer 70, Est GFR (MDRD) Non-Af 58 L, BUN/Creatinine Ratio 37.1 H, Glucose 121 H, Calcium 8.5 06/25/23 15:15: Urine Color Yellow, Urine Clarity Clear, Urine pH 5.0, Ur Specific [place] 1.025, Urine Protein 15 H, Urine Glucose (UA) Normal, Urine Ketones Negative, Urine Occult Blood Negative, Urine Nitrite Negative, Urine Bilirubin Negative, Urine Urobilinogen Normal, Ur Leukocyte Esterase 25 H, Urine RBC 0 SEEN, Urine WBC 0-5 SEEN, Ur Squamous Epith Cells 0-5 SEEN, Urine Bacteria 0 SEEN, Hyaline Casts 0-5 SEEN, Urine Mucus 0 SEEN 06/26/23 06:54: WBC 8.0, RBC 4.00 L, Hgb 11.9 L, Hct 36.0 L, MCV 90.0, MCH 29.8, MCHC 33.1, RDW Std Deviation 42.8, RDW Coeff of Sandeep 13.0, Plt Count 351, MPV 10.2, Immature Gran % (Auto) 0.700, Neut % (Auto) 90.3 H, Lymph % (Auto) 8.0 L, [place] % (Auto) 0.9, Eos % (Auto) 0.0, Baso % (Auto) 0.1, Absolute Neuts (auto) 7.3, Absolute Lymphs (auto) 0.64 L, Nucleated RBC % 0, Sodium 136, Potassium 4.6, Chloride 106, Carbon Dioxide 26.0, Anion Gap 4 L, BUN 41 H, Creatinine 1.03 H, Estim Creat Clear Calc 57.77, Est GFR (MDRD) Af Amer 72, Est GFR (MDRD) Non-Af 59 L, BUN/Creatinine Ratio 39.8 H, Glucose 191 H, Calcium 8.8, Total Bilirubin 0.10 L, AST 35, ALT 48, Alkaline Phosphatase 89, Total Protein 6.9, Albumin 2.8 L, Globulin 4.1, Albumin/Globulin Ratio 0.7 L Imagaing Radiology Impression Cervical Spine X-Ray 06/25/23 18:10 IMPRESSION: Stable alignment. C3-C5 anterior cervical fusion. Electronically Signed: Ren Nicole MD (Brooks) at 18:23 EST Reading Location ID and State: [facility] / [place] , Service support , Assessment & Plan Assessment/Plan (1) Closed C3 fracture: QUALIFIERS: Encounter type: initial encounter Fracture morphology: unspecified fracture morphology Fracture alignment: displaced Qualified Code(s): S12.200A - Unspecified displaced fracture of third cervical vertebra, initial encounter for closed fracture (2) S/P cervical spinal fusion: PLAN: Plan I reviewed x-rays done yesterday on admission. These show unchanged C3-5 ACDF compared to x-rays from 06/21/23. Suspect additional subsidence at the C3-4 graft space. Known C3 screw loosening again noticed. I explained to the patient in detail her imaging findings and her current neurological status. She has gotten additional significant weakness this time much worse on the left side with grade 3 weakness. She is also on nasal oxygen which she attributes to her sleep apnea. She has significantly worsened over the last 4 days. It is unclear how severe the neck strain was which led to this new weakness. She has been fairly noncompliant with her smoking cessation, but says that she has tried her best to cut down. At this time, due to the new worsening weakness, I would like to get a new MRI of the cervical spine without contrast. Depending on the results, I may consider posterior decompression fusion. For now she should continue with strict collar immobilization, use of external bone stimulator, PT OT mobilization to the extent possible. Patient was in agreement. Patient requested that I reach out to her aunt Nan. I tried to call her but was not able to reach her. I will continue to try and reach her. Charges/Coding Visit Charges Inpatient E&M: 60167 Init Hosp L3
[2023-06-26] MEDS: 0.9% Saline Lock 10 ML Syringe IV ×2 (17:54→22:53)
[2023-06-26] MEDS: Atorvastatin Calcium 40 MG Tablet PO (21:44)
[2023-06-26] MEDS: traZODone 100 MG Tablet 150 MG PO (21:45)
[2023-06-27] VITALS (17 sets, daily range): BP systolic 123–186; BP diastolic 78–121; PULSE 75–98; RESP 12–20; TEMP 35.8–36.8; O2SAT 94–100
[2023-06-27] MEDS: Pregabalin 75 MG Capsule 150 MG PO ×2 (05:46→20:26)
[2023-06-27] MEDS: dexAMETHasone 4 MG/ML Vial IV ×2 (05:46→18:17)
[2023-06-27] MEDS: Acetaminophen 500 MG Tablet 1000 MG PO ×2 (05:46→20:26)
[2023-06-27] MEDS: Levothyroxine 25 MCG TABLET PO (05:47)
[2023-06-27] MEDS: oxyCODONE 5 MG Tablet PO ×2 (05:53→22:01)
[2023-06-27 06:20] LABS: Absolute Lymphocyte Count 1.13 X10^3/uL (0.83-4.51); Absolute Neutrophil Count 12.2 X10^3/uL (2.0-7.7); Basophil# 0.03 X10^3/uL; Basophil% 0.2 % (0-1); Hematocrit 35.9 % (37-47); Hemoglobin 11.7 g/dL (12.0-15.0); Lymphocyte # 1.13 X10^3/ul (0.83-4.51); Mean Corp Hgb Conc 32.6 g/dL (32-36); Mean Corpuscular Volume 89.1 fL (81-99); Mean Platelet Vol. 10.9 fl (6.2-12.0); Monocyte# 0.54 X10^3/uL; Monocyte% 3.8 % (0-10); NRBC Flagged by Analyzer 0 % (0-5); Neutrophil # 12.24 X10^3/uL (2.7-7.7); Platelet Count 407 K/mm3 (150-450); RBC Distribution Width CV 13.1 % (11.6-14.6); Red Blood Count 4.03 M/mm3 (4.2-5.4); White Blood Count 14.1 K/mm3 (4.4-11.0)
[2023-06-27 06:46] LABS: Anion Gap 4 (5-15); BUN 31 mg/dL (7-18); BUN/Creat Ratio 51.6 RATIO (10-20); Calcium,Total 9.1 mg/dL (8.5-10.1); Chloride 110 mmol/L (98-107); EST Glomerular Filtration Rate 110 mL/min (>60); Est Glom Filt Rate - Afr Amer 133 mL/min (>60); Estimated Creatinine Clearance 99.18 ml/min; Glucose 138 mg/dL (74-106); Magnesium 2.2 mg/dL (1.6-2.6); Phosphorus 3.1 mg/dL (2.5-4.9); Potassium 4.8 mmol/L (3.5-5.1); Sodium Level 140 mmol/L (136-145)
[2023-06-27] MEDS: Ipratropium 0.5 MG/2.5 ML SOLUTION INHALATION ×2 (07:00→20:03)
--- NOTE | 2023-06-27 07:25 | PCM.PN.HOSP ---
Reason for Visit Reason for Visit: Diagnoses Hypothyroidism, unspecified (06/25/23) Weakness (06/25/23) Unspecified displaced fracture of third cervical vertebra, initial encounter for closed fracture (06/25/23) Tobacco use (06/25/23) Arthrodesis status (06/25/23) Other specified postprocedural states (06/25/23) Subjective Subjective , Case was discussed with Dr. Skinner plan is for patient to undergo repeat imaging studies with MRI of the cervical spine Objective Data Objective Data Vital Signs: Vital Signs Temp Pulse Resp BP Pulse Ox O2 Del Method O2 Flow Rate 97.8 F 80 20 H 148/97 H 97 Nasal Cannula 2 06/27/23 02:49 06/27/23 07:00 06/27/23 07:00 06/27/23 02:49 06/27/23 07:00 06/27/23 07:00 06/27/23 07:00 Oxygen Flow Rate (L/min) 2 Oxygen Delivery Method Nasal Cannula Weight: 86.2 kg Body Mass Index (BMI) 29.8 Intake & Output: Intake and Output for Last 24 Hours 06/25/23 06/26/23 06/27/23 23:59 23:59 23:59 Intake Total 1000 / 1300 2830 / 2830 500 / 500 Output Total 1650 / 1650 Balance 1000 / 1300 1180 / 1180 500 / 500 Lab / Micro Data 06/27/23 05:10 06/27/23 05:10 Labs: Laboratory Results - last 24 hr 06/26/23 06:54: Sodium 136, Potassium 4.6, Chloride 106, Carbon Dioxide 26.0, Anion Gap 4 L, BUN 41 H, Creatinine 1.03 H, Estim Creat Clear Calc 57.77, Est GFR (MDRD) Af Amer 72, Est GFR (MDRD) Non-Af 59 L, BUN/Creatinine Ratio 39.8 H, Glucose 191 H, Calcium 8.8, Total Bilirubin 0.10 L, AST 35, ALT 48, Alkaline Phosphatase 89, Total Protein 6.9, Albumin 2.8 L, Globulin 4.1, Albumin/Globulin Ratio 0.7 L 06/27/23 05:10: WBC 14.1 H, RBC 4.03 L, Hgb 11.7 L, Hct 35.9 L, MCV 89.1, MCH 29.0, MCHC 32.6, RDW Std Deviation 43.0, RDW Coeff of Sandeep 13.1, Plt Count 407, MPV 10.9, Immature Gran % (Auto) 1.000 H, Neut % (Auto) 87.0 H, Lymph % (Auto) 8.0 L, Gaines % (Auto) 3.8, Eos % (Auto) 0.0, Baso % (Auto) 0.2, Absolute Neuts (auto) 12.2 H, Absolute Lymphs (auto) 1.13, Nucleated RBC % 0, Sodium 140, Potassium 4.8, Chloride 110 H, Carbon Dioxide 26.0, Anion Gap 4 L, BUN 31 H, Creatinine 0.60, Estim Creat Clear Calc 99.18, Est GFR (MDRD) Af Amer 133, Est GFR (MDRD) Non-Af 110, BUN/Creatinine Ratio 51.6 H, Glucose 138 H, Calcium 9.1, Phosphorus 3.1, Magnesium 2.2 Physical Exam Narrative GENERAL: cooperative HEENT: Neck immobilized EYES; Anicteric, Normal Conjunctiva NECK; supple, normal thyroid, RESPIRATORY: Diminished to auscultation CARDIOVASCULAR: Regular S1 S2, GI: soft, normoactive bowel sounds, : No Renal angle tenderness; EXTREMITIES: No edema, no clubbing, MUSCULOSKELETAL: no muscle wasting NEURO: Awake; no lateralizing signs. SKIN: No Rash PSYCH; Flat affect Assessment & Plan Assessment/Plan (1) Generalized weakness: (2) History of neck surgery: (3) Hypothyroidism: QUALIFIERS: Hypothyroidism type: unspecified Qualified Code(s): E03.9 - Hypothyroidism, unspecified (4) S/P cervical spinal fusion: (5) Tobacco use: PLAN: Plan Patient is a 53-year-old lady with recent C3-5 anterior cervical discectomy and fusion with plate instrumentation by Dr. Kendall Skinner on 05/18/2023, recent hospitalization from 06/17/2023 to 06/21/2023 who presented with progressive generalized weakness in arms and legs 1. Physical deconditioning in the context of recent C3-C5 cervical discectomy with fusion. Patient admitted to regular nursing floor. Cervical x-ray obtained on admission demonstrated stable cervical fusion.- Requested for PT OT eval and older adult social work specialist to assist with discharge planning. Consult was also placed to patient spine surgeon. Case was discussed with patient spine surgeon recommended initiation of steroids ? 06/27/2023 ; Case was discussed with Dr. Skinner plan is for patient to undergo repeat imaging studies with MRI of the cervical spine 2. Acute kidney injury ? Secondary to dehydration patient be managed with IV fluid with subsequent monitoring of electrolytes ordered 3. COPD ? Currently not in exacerbation aerosol treatment as needed 4. Chronic pain ? Continued with current pain regimen 5. Hypothyroidism - Patient is on levothyroxine home dose continued 6. Hypertension - Blood pressure controlled, home medications continued with dose adjustment as needed 7. GERD ? On PPI 8. Psychiatric disorder NOS -Continue home psychotropic medications 9. Tobacco dependence - Counseled on cessation, offered nicotine patch for tobacco cravings 12. DVT prophylaxis ? Bilateral SCDs for now Time spent in the patient's overall evaluation,decision-making process, review of diagnostic data, adjustment of management, discussion with other providers, nursing nursing and ancillary staff involved in patient's care documentation, 40 Minutes Charges/Coding Visit Charges Inpatient E&M: 72031 Subs Hosp L2
--- NOTE | 2023-06-27 07:39 | WOUNDNOTE ---
Surgery charge nurse called to inform nurse that Dr Skinner wants patient to be NPO for possible surgery today pending MRI results. YAYA Ayala aware. Order placed in computer for NPO status and patient is aware.
--- NOTE | 2023-06-27 10:28 | MRI_ITS ---
We are attempting to reach an attending provider to discuss findings. An addendum with communication details will be sent when the communication is complete. STUDY: MRI CERVICAL SPINE WITHOUT CONTRAST REASON FOR EXAM: Female, 53 years old. Worsening weakness and myelopathy. TECHNIQUE: Standardized fat and water weighted pulse sequences were obtained in the sagittal and axial planes. COMPARISON: MRI cervical spine without contrast 05/16/2023. CT cervical spine without contrast 05/17/2023. FINDINGS: Normal foramen magnum and brainstem-cervical cord junction. Normal craniovertebral junction. Normal anterior atlantoaxial articulation. Normal odontoid process. Normal cervical lordosis. Normal vertebral bodies and posterior osseous elements. C2-3: Normal endplates. Normal disc height, signal and morphology. Normal central canal and intervertebral neural foramina. C3-4: Plate with transfixing screws and disc implant. Increase midline ventral extradural defect due to disc protrusion displaced by the disc implant in front of the disc protrusion. This is causing worsening of central canal stenosis, now severe with flattening cord compression. Moderate left degenerative facet arthropathy and mild right degenerative facet arthropathy. Suspicious moderate stenosis of the right intervertebral neural foramen and mild stenosis of the left intervertebral neural foramen, previously normal intervertebral neural foramina. C4-5: Metallic plate with transfixing screws and disc implant. No ventral extradural defect. Normal central canal and intervertebral neural foramina. C5-6: Normal endplates. Normal disc height, signal and morphology. Normal central canal and intervertebral neural foramina. C6-7: Normal endplates. Normal disc height, signal and morphology. Normal central canal and intervertebral neural foramina. C7-T1: Normal endplates. Normal disc height, signal and morphology. Normal central canal and intervertebral neural foramina. T1-T2, T2-T3 and T3-T4: (Sagittal only). Normal endplates. Normal disc height, signal and morphology. Normal central canal and intervertebral neural foramina. Abnormal intramedullary high signal intensity of the cervical spinal cord at the C3-C4 due to cord compression by midline disc protrusion displaced by disc implant in front of the disc protrusion. Normal upper thoracic spinal normal included portions of brainstem and cerebellum. Normal visualized soft tissue structures. MRI/Spine Cervical (Routine) IMPRESSION: 1. Worsening of now severe central canal stenosis at C3-C4 disc space level due to posterior midline disc protrusion displaced by disc implant in front of the disc protrusion. This is causing spinal cord compression with intramedullary high signal intensity worrisome for cord contusion. 2. Improvement of central canal stenosis at C4-C5 disc level following ACDF. Electronically Signed: Michele Mcintyre MD at 12:05 EST ,
[2023-06-27] MEDS: LORazepam 1 MG Tablet PO (10:38)
[2023-06-27] MEDS: 0.9% Normal Saline (1000mL) 1,000 ML 15 ML IV (12:27)
--- NOTE | 2023-06-27 12:29 | PCM.HP.BLA ---
History and Physical Saw her today in preop after obtaining MRI cervical spine this morning. She reports no improvement in her strength since yesterday. She has not been able to walk since admission. To review, she came to the hospital on Tuesday with worsening weakness in all 4 extremities. She was admitted yesterday and I was consulted. She was recently discharged home with a plan of home PT on 06/21/23. A day after she went home, she had a sudden jerk movement and turn of her neck which led to severe pain. Since this incident, she has noticed significant weakness worse on the left arm and left leg. Previously she underwent C3-5 ACDF on 05/18/23 for severe progressive myelopathy with cord compression cortical changes. She recovered well after the surgery and was discharged to rehab where she stayed for 2 to 3 weeks. She had good maintenance of alignment at her 2-week follow-up visit in clinic on 06/01/2023. She then had a fall hurting her head and was readmitted on 06/17/2023. She was noticed to have a C3 fracture with subsidence and loosening of C3 screws. Due to good fixation in C4 and C5, this was treated nonsurgically with continued collar immobilization and PT OT. She improved from weakness of 4 - strength in all 4 extremities to 4+ over 4 days and was discharged on 06/21/2023. She denies any dysphagia, but has trouble eating by herself as she drops things from her spoon and fork. She is able to stand and transfer but her walking and balance have significantly worsened. She has been unable to take care of herself at home. She was not able to have for home physical therapy over the 3 days that she was at home. She is concerned about the new worsening weakness on her left arm and left leg. Physical exam: Examination of the neck shows ACDF incision well-healed.Collar well-fitting. There examination shows grade 4 - power in right upper and right lower extremities, grade 3 in left upper and left lower extremities. Assessment & Plan Assessment/Plan (1) Cervical myelopathy: (2) Closed C3 fracture: QUALIFIERS: Encounter type: initial encounter Fracture morphology: unspecified fracture morphology Fracture alignment: displaced Qualified Code(s): S12.200A - Unspecified displaced fracture of third cervical vertebra, initial encounter for closed fracture (3) S/P cervical spinal fusion: PLAN: Plan I reviewed the MRI done this morning. Also reviewed the x-rays done on Tuesday. This shows C3-4 subsidence and severe recurrent stenosis with cord compression and cord signal changes. I went over all treatment options with the patient. Considering that she has severely worsened over the last 4 to 5 days since her last discharge from the hospital when she was 4+ strength to now almost 2-3 strength in the left upper and left lower extremities, I recommend posterior decompression with fusion including C3-5 laminectomy and posterior instrumented fusion with possible extension to C2 depending on screw purchase. Patient has significant cystic changes in the C4 and C3 lateral mass especially on the left side. I went over all risk benefits and alternatives. The risks include but are not limited to infection, bleeding, injury to nerves or vessels, spinal cord injury, nerve root injury, C5 palsy, inadequate decompression, persistent weakness, inability to walk, DVT, pulmonary embolism, need for further procedures, hardware failure, CSF leak, need for prolonged collar immobilization, cardiopulmonary event. Patient understands and agrees to the procedure. Consent was signed.
--- NOTE | 2023-06-27 13:50 | RAD_ITS ---
INDICATION: POSTERIOR CERVICAL FUSION C3-C5 EXAMINATION/TECHNIQUE: X-RAY - XR Spine Cervical 4 or 5 Views COMPARISON: None. FINDINGS/ RAD/Cerv Spine 2 or 3 Views IMPRESSION: Intraoperative spot fluoroscopic images of the cervical spine to be interpreted by the operating surgeon. Total fluoroscopic time of 11.7 seconds. Total radiation dose of 1.7 mGy. Electronically Signed: Mitul Damon DO at 7:09 EST ,
[2023-06-27] MEDS: Bacitracin 500 UNITS/GM PACKET (14:30)
[2023-06-27] MEDS: Cefazolin 2 GM in 0.9% Normal Saline (100mL Bag) 100 ML IV (14:30)
[2023-06-27] MEDS: Vancomycin IV 1,000 MG/20 ML Vial 1000 MG OPERA.SITE (16:42)
--- NOTE | 2023-06-27 17:30 | CASEMGMT ---
Addendum entered and electronically signed by Zoraida Arellano 06/28/23 13:04: Clarification: Went to patient's room to meet with patient, did not meet with patient this date as patient off the unit in OR. -maged Original Note: Social Work Met with patient to discuss discharge planning and SDOH screening. This typewriter assembly and parts inspector familiar with patient from prior admissions. Patient off the unit, so will try again on 06.28.23. -LIZY Kam
--- NOTE | 2023-06-27 17:37 | OP.PCM_ITS ---
Report of Operation Date of Procedure: 06/27/23 Description of Surgical Findings:: Preoperative diagnosis: C3-5 stenosis with severe myelopathy, prior C3-5 ACDF with plate pullout and subsidence Postoperative diagnosis: C3-5 stenosis with severe myelopathy, prior C3-5 ACDF with plate pullout and subsidence Name of procedure: C3-C5 posterior decompression laminectomy, posterior spinal instrumented fusion * C3-4 posterior fusion CPT code 57091 * C4-5 posterior fusion CPT code 36552/51 * C3-4 posterior decompression CPT code 46256 * C4-5 posterior decompression CPT code 45691/51 * C3-5 posterior instrumentation CPT code 81985 * Autograft lamina morselized CPT code 11631 * Allograft cancellous chips with DBX CPT code 66155 Attending Surgeon: Dr. Kendall Pena. surgeon: Dr. Tony Wright Estimated blood loss: 100 mL Anesthesia: GA Complications: None Instrumentation: [employer] Infinity posterior lateral mass instrumentation Indications: Patient is a 53-year-old lady who presented with progressively worsening difficulty with balance 5 weeks after C3-5 ACDF. She had a fall and hit her head about a week ago which started the symptoms. Imaging revealed C3 fracture with screw loosening, C3-4 subsidence, recurrent C3-5 stenosis with cord compression and myelomalacia. In order to halt the progression of myelopathy, patient requested surgical treatment. All risks associated with surgery were explained which include but are not limited to infection, blood loss, injury to spinal cord and nerve roots, quadriplegia, DVT, pulmonary embolism, , incomplete neurologic recovery, hardware failure, pseudoarthrosis, need for further surgery. Procedure: The patient was identified in the preoperative suite using unique patient identifiers. Skin was marked, consent was reviewed, and all questions were answered. The patient was then brought back to the operative room. A surgical timeout was performed to make sure correct procedure was being done on the correct patient and all operative room staff were on the same page. General endotracheal anesthesia was then given to the patient. [place] cat heter was inserted. Spinal monitoring leads were applied. Pre-flip baseline potentials were recorded. Baselines were limited such that motor evoked potentials were only present in the feet and shoulders on both sides symmetric. Hughes tongs were then applied. The patient was then carefully positioned prone on a regular OR table over parallel gel rolls and the Hughes attachments were applied. All bony prominences were well-padded. Abdomen was free. Reverse Trendelenburg position was given. A lateral C-arm shot was taken to define the extent of incision. Post-flip Baseline neuro monitoring potentials were recorded. Skin was then prepped and draped in the usual fashion. A final time-out was then performed. A posterior midline incision was taken from approximately C2 spinous process to C5. Subcutaneous tissue was dissected with Bovie to reach the tips of spinous processes following the white line. Subperiosteal dissection was then carried out around the spinous process. A towel clip was applied to one of the spinous processes and a lateral C-arm image was taken. Levels were confirmed. Further subperiosteal dissection was then continued to expose C3-C5 right up to the lateral edge of the lateral masses. Hemostasis was achieved with Bovie and occasional use of FloSeal and aqua mantis. Screws were then placed using a bur to make a relief pilot hole and then utilizing drill with a stop at 14 mm. Ballpoint probe was utilized to see if this cortex was breached. Lateral mass screws were placed from C3-C5 bilaterally. Screw sizes were 3.5 x 14 mm at all levels bilaterally. C-arm showed good positioning of screws. Bur was then utilized to make a trough on both sides to perform a laminectomy at C3-C5. Once the trough was completed and nerve hook was utilized to probe under the ligamentum flavum and #2 Kerrison rongeur was used to complete the laminectomy troughs. The laminectomy was then completed by using Kerrison rongeurs at the C2-3 and C5-6 interlaminar spaces. With gentle traction was given through towel clips attached to C3 and C4 spinous processes while the laminectomy was completed. Motor potentials were run periodically during the decompression procedure and they were all baseline. Betadine was then placed into the incision for 3 minutes. Irrigation was performed with 3 L of normal saline using pulse lavage. Bur was then utilized to decorticate the lateral masses from C3-5 bilaterally. An appropriate length precontoured michel was then placed and set screws were tightened. Final tightening was done with torque screwdriver. Lamina bone from the laminectomy was morselized and mixed with DBX along with cancellous bone chips. This was then placed lateral to the screws & rods for fusion. 1 g vancomycin powder was sprinkled into the wound. Closure was done in layers over a medium Hemovac drain. #0 Vicryl and strata fix was used for the deep fascia, 2-0 Vicryl for the subcutaneous tissue and mary for the skin were utilized. Solis dressing was placed. The patient was then carefully detached from the Hughes attachments and turned supine carefully onto a hospital bed. A hard cervical collar was placed. Hughes pins were removed. The patient was extubated and was found to move all 4 extremities. The patient was then taken to the PACU for postop management. Estimated blood loss for the entire procedure was 100 mL. The patient tolerated the entire procedure well and no complications occurred. Snaptee instrumentation was utilized. No dural tear was identified intraoperatively. Neuromonitoring motor potentials periodically changed but r eturned to baseline. Mean arterial pressure was maintained above 85 during the decompression. I was present for the entirety of the case and performed the surgery myself. Drains: Medium Hemovac, solis dressing Admit VTE Documentation VTE Mechan Device Prophylaxis: SCD's Reason prophylaxis not ordered:: Treatment Not Indicated Procedures Musculoskeletal [id number]: Other Procedure See Report
[2023-06-27] MEDS: Lactated Ringers 1,000 ML 100 ML IV (18:00)
[2023-06-27] MEDS: Ketorolac 30 MG/ML Syringe IV (18:58)
[2023-06-27] MEDS: Morphine 2 MG/ML Syringe IV (20:20)
[2023-06-27] MEDS: 0.9% Saline Lock 10 ML Syringe IV (20:20)
[2023-06-27] MEDS: traZODone 100 MG Tablet 150 MG PO (20:25)
[2023-06-27] MEDS: Baclofen 10 MG Tablet 5 MG PO (20:26)
[2023-06-27] MEDS: Atorvastatin Calcium 40 MG Tablet PO (20:26)
[2023-06-27] MEDS: Metoprolol(XL)Succ 50 MG Tablet PO (22:01)
[2023-06-27] MEDS: amLODIPine 10 MG Tablet PO (22:01)
[2023-06-27] MEDS: Cefazolin 1 GM/50 ML BAG IV (22:11)
[2023-06-28] VITALS (7 sets, daily range): BP systolic 108–149; BP diastolic 67–101; PULSE 69–77; RESP 16–18; TEMP 36.5–37.1; O2SAT 91–96
[2023-06-28] MEDS: dexAMETHasone 4 MG/ML Vial IV (00:19)
[2023-06-28] MEDS: Morphine 2 MG/ML Syringe IV ×2 (00:21→10:55)
[2023-06-28] MEDS: Pregabalin 75 MG Capsule 150 MG PO ×3 (05:03→21:22)
[2023-06-28] MEDS: Levothyroxine 25 MCG TABLET PO (05:03)
[2023-06-28] MEDS: Cefazolin 1 GM/50 ML BAG IV (05:03)
[2023-06-28] MEDS: Acetaminophen 500 MG Tablet 1000 MG PO ×3 (05:03→21:22)
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
[2023-06-28 07:56] LABS: Absolute Lymphocyte Count 1.33 X10^3/uL (0.83-4.51); Absolute Neutrophil Count 12.8 X10^3/uL (2.0-7.7); Basophil# 0.01 X10^3/uL; Basophil% 0.1 % (0-1); Hematocrit 33.4 % (37-47); Hemoglobin 10.8 g/dL (12.0-15.0); Lymphocyte # 1.33 X10^3/ul (0.83-4.51); Lymphocyte % 8.9 % (19-41); Mean Corp Hgb Conc 32.3 g/dL (32-36); Mean Corpuscular Hgb 29.1 pg (27.0-32.0); Mean Platelet Vol. 10.7 fl (6.2-12.0); Monocyte# 0.73 X10^3/uL; Monocyte% 4.9 % (0-10); NRBC Flagged by Analyzer 0 % (0-5); Neutrophil # 12.82 X10^3/uL (2.7-7.7); Neutrophil % 85.5 % (47-70); Platelet Count 352 K/mm3 (150-450); RBC Distribution Width CV 13.2 % (11.6-14.6); RBC Distribution Width SD 43.4 fl (35.1-43.9); Red Blood Count 3.71 M/mm3 (4.2-5.4)
[2023-06-28 08:24] LABS: Anion Gap 4 (5-15); BUN 23 mg/dL (7-18); Calcium,Total 8.8 mg/dL (8.5-10.1); Chloride 107 mmol/L (98-107); Creatinine, Serum 0.58 mg/dL (0.55-1.02); EST Glomerular Filtration Rate 116 mL/min (>60); Est Glom Filt Rate - Afr Amer 140 mL/min (>60); Glucose 116 mg/dL (74-106); Potassium 4.5 mmol/L (3.5-5.1); Sodium Level 139 mmol/L (136-145)
[2023-06-28] MEDS: amLODIPine 10 MG Tablet PO (08:43)
[2023-06-28] MEDS: Metoprolol(XL)Succ 50 MG Tablet PO (08:44)
[2023-06-28] MEDS: oxyCODONE 5 MG Tablet PO ×3 (08:44→21:22)
[2023-06-28] MEDS: Baclofen 10 MG Tablet 5 MG PO ×2 (08:44→21:22)
[2023-06-28] MEDS: Senna/Docusate Sodium 1 Tablet 2 TABLET PO (08:44)
[2023-06-28] MEDS: Meloxicam 15 MG Tablet PO (08:45)
[2023-06-28] MEDS: Ketorolac 30 MG/ML Syringe IV (08:45)
[2023-06-28] MEDS: 0.9% Saline Lock 10 ML Syringe IV ×3 (08:45→14:20)
[2023-06-28] MEDS: OLANZapine 10 MG Tablet PO (08:46)
[2023-06-28] MEDS: Pantoprazole Sodium 20 MG Tablet PO (08:46)
[2023-06-28] MEDS: Mirabegron 25 MG TAB.ER.24H PO (08:46)
[2023-06-28] MEDS: buPROPion (XL) 300 MG TABLET.XL PO (08:46)
[2023-06-28] MEDS: Ensure Surgery 237 ML LIQUID PO (08:48)
--- NOTE | 2023-06-28 11:09 | RAD_ITS ---
STUDY: X-RAY - CERVICAL SPINE REASON FOR EXAM: Female, 53 years old. Cervical spine fusion. TECHNIQUE: 2 upright view(s) of the cervical spine were obtained. COMPARISON: June 25, 2023 FINDINGS: Normal anterior atlantoaxial articulation. Normal odontoid process. Normal cervical lordosis. Anterior and posterior fusion from C3 to C5 with intervertebral disc prostheses. Normal disc space heights. Normal visualized intervertebral neuroforamina. Drains in place. RAD/Cerv Spine 2 or 3 Views IMPRESSION: Fusion at C3-C5 with no complicating features. Electronically Signed: Douglas Holman MD at 15:34 EST ,
--- NOTE | 2023-06-28 11:20 | CASEMGMT ---
Readmission Note: Index: 06/17/23-06/21/23. Dx: Cervical Myelopathy Readmission: 06/27/23. Dx: Generalized Weakness, FTT Pt with HTN, insomnia, chronic pain, hyperlipidemia, COPD, GERD, and hypothyroidism was admitted on the above noted dates for the corresponding dx?s. Pt had a fall on index admission and found to have a C3 fracture with subsidence and loosening of C3 screws. Pt was treated nonsurgically with continued collar immobilization and therapy. She improved from weakness in all extremities and was discharged on 06/21/2023. Pt plan was to DC home with . [facility] was unable to receive an accepting agency due to the pt insurance/ staffing. On pt readmission, pt came to the hospital with worsening weakness in all 4 extremities. Per provider note, the pt had a sudden jerking movement which turned her neck and caused severe pain. She has had increased pain and weakness to her Lt arm and Lt leg since. During this stay the pt received a C3-C5 posterior decompression laminectomy. Face to face assessment at this time. Pt resting comfortably in bed. Pt states she was aware that we were unable to setup [facility] for her. Pt states that she had an appt with Dr. Skinner but came here prior to the appt date. Pt states that she has been unable to get OOB with PT but has been doing exercises in bed. Pt states that she is wanting to go to a SNF after DC here. Paul Carson RN CM
--- NOTE | 2023-06-28 11:51 | PN.ORTHO_ITS ---
Subjective Subjective Postop day 1 status post C3-5 posterior decompression fusion. Patient says that she has had significant improvement of her preoperative weakness. She is sitting up and having breakfast. Collar is well-fitting. She does have significant surgical neck pain. Hemovac drain documented as 180 cc. Objective Data Objective Data Vital Signs: Vital Signs Temp Pulse Resp BP Pulse Ox O2 Del Method O2 Flow Rate 98.7 F 72 18 149/101 H 94 Room Air 3 06/28/23 08:35 06/28/23 08:44 06/28/23 08:35 06/28/23 08:35 06/28/23 08:35 06/28/23 08:35 06/27/23 20:08 Oxygen Flow Rate (L/min) 3 Oxygen Delivery Method Room Air Weight: 190 lb 0.615 oz Body Mass Index (BMI) 29.8 Intake & Output: Intake and Output for Last 24 Hours 06/26/23 06/27/23 06/28/23 23:59 23:59 23:59 Intake Total 2830 / 2830 2779.75 / 2779.75 696.67 / 696.67 Output Total 1650 / 1650 1030 / 1030 2370 / 2370 Balance 1180 / 1180 1749.75 / 1749.75 -1673.33 / -1673.33 Lab / Micro Data 06/28/23 06:45 06/28/23 06:45 Labs: Laboratory Results - last 24 hr 06/28/23 06:45: WBC 15.0 H, RBC 3.71 L, Hgb 10.8 L, Hct 33.4 L, MCV 90.0, MCH 29.1, MCHC 32.3, RDW Std Deviation 43.4, RDW Coeff of Sandeep 13.2, Plt Count 352, MPV 10.7, Immature Gran % (Auto) 0.600, Neut % (Auto) 85.5 H, Lymph % (Auto) 8.9 L, [place] % (Auto) 4.9, Eos % (Auto) 0.0, Baso % (Auto) 0.1, Absolute Neuts (auto) 12.8 H, Absolute Lymphs (auto) 1.33, Nucleated RBC % 0, Sodium 139, Potassium 4.5, Chloride 107, Carbon Dioxide 28.0, Anion Gap 4 L, BUN 23 H, Creatinine 0.58, Estim Creat Clear Calc 102.60, Est GFR (MDRD) Af Amer 140, Est GFR (MDRD) Non-Af 116, BUN/Creatinine Ratio 40.0 H, Glucose 116 H, Calcium 8.8 Radiography Diagnostic Testing: Radiology Impression Cervical Spine MRI 06/27/23 10:28 IMPRESSION: 1. Worsening of now severe central canal stenosis at C3-C4 disc space level due to posterior midline disc protrusion displaced by disc implant in front of the disc protrusion. This is causing spinal cord compression with intramedullary high signal intensity worrisome for cord contusion. 2. Improvement of central canal stenosis at C4-C5 disc level following ACDF. Electronically Signed: Michele Mcintyre MD at 12:05 EST , ADDENDUM: 06/27/23 1216 IMPRESSION: 1. Worsening of now severe central canal stenosis at C3-C4 disc space level due to posterior midline disc protrusion displaced by disc implant in front of the disc protrusion. This is causing spinal cord compression with intramedullary high signal intensity worrisome for cord contusion. 2. Improvement of central canal stenosis at C4-C5 disc level following ACDF. N.B. : The above Results were Read Back by Michele Mcintyre MD to Mimi Villalta RN, and understanding confirmed on 06/27/2023 12:10:05 (ET). Electronically Signed: Michele Mcintyre MD at 12:05 EST , Cervical Spine X-Ray 06/27/23 13:50 IMPRESSION: Intraoperative spot fluoroscopic images of the cervical spine to be interpreted by the operating surgeon. Total fluoroscopic time of 11.7 seconds. Total radiation dose of 1.7 mGy. Electronically Signed: Mitul Damon DO at 7:09 EST , Physical Exam Narrative Examination of the neck shows collar well-fitting. Drain in place. Neurologic evaluation shows grade 4+ strength in right upper and right lower extremities, grade 4 in the left upper and left lower extremities. This is significantly improved from her preoperative strength yesterday. Assessment & Plan Assessment/Plan (1) S/P cervical spinal fusion: PLAN: Plan Significant neurologic improvement has been noticed after posterior decompression fusion surgery yesterday. Surgical posterior neck pain bothers her. Encourage aggressive PT OT mobilization. Encouraged NSAIDs, Tylenol, muscle relaxants to reduce need for opioids is much as possible. Added another 24 hours of IV antibiotics. Will continue drain up till tomorrow and monitor output. Will continue to follow. Will likely need rehab placement but will monitor improvement.
--- NOTE | 2023-06-28 12:56 | CASEMGMT ---
Addendum entered and electronically signed by Zoraida Arellano 06/29/23 08:47: Social determinants of health screening completed by DEMETRIO Cesar. on 06.28.2023. Original Note: Social Work Met with patient in room, introducing to self and social work role. Planned to discuss discharge planning and SDOH screening. Unit RECORD FILING CLERK to room to let patient know that patient is needed in exray. This account underwriter able to discuss discharge planning. Patient confirms willingness to go to SNF, short term, for rehab. Provided patient a list of SNFs, generated from [facility] including patient's geographical region and Medicare quality and star data. Patient reports first choice is [facility] as this is close to patient's home. Prefers to be in [place], but would go to [place] and [place] if needed. Does not want to go to [facility]. Would okay with referrals to [facility] (2nd choice) and then any of the facilities in [place] or [place] should the [facility] not be able to accept patient. Unable to complete SDOH screening due to need to go to [facility]. Plan: Social work to try again later for SDOH completion. Working on SNF placement. -LIZY Kam
[2023-06-28] MEDS: Cefazolin 2 GM in 0.9% Normal Saline (100mL Bag) 100 ML IV ×2 (14:20→21:25)
[2023-06-28] MEDS: Ipratropium 0.5 MG/2.5 ML SOLUTION INHALATION (19:21)
[2023-06-28] MEDS: traZODone 100 MG Tablet 150 MG PO (21:22)
[2023-06-28] MEDS: Atorvastatin Calcium 40 MG Tablet PO (21:22)
[2023-06-29 04:43] VITALS: BP 144/87; PULSE 68; RESP 18; TEMP 36.6; O2SAT 93
[2023-06-29] MEDS: Acetaminophen 500 MG Tablet 1000 MG PO ×3 (04:43→21:50)
[2023-06-29] MEDS: Pregabalin 75 MG Capsule 150 MG PO ×3 (04:43→21:51)
[2023-06-29] MEDS: Levothyroxine 25 MCG TABLET PO (04:43)
[2023-06-29] MEDS: oxyCODONE 5 MG Tablet PO ×2 (04:43→19:28)
[2023-06-29] MEDS: Cefazolin 2 GM in 0.9% Normal Saline (100mL Bag) 100 ML IV ×2 (04:50→14:57)
[2023-06-29 06:51] VITALS: PULSE 66; RESP 16; O2SAT 93
[2023-06-29] MEDS: Ipratropium 0.5 MG/2.5 ML SOLUTION INHALATION (06:51)
[2023-06-29 07:35] LABS: Absolute Lymphocyte Count 3.64 X10^3/uL (0.83-4.51); Absolute Neutrophil Count 8.6 X10^3/uL (2.0-7.7); Basophil# 0.05 X10^3/uL; Basophil% 0.4 % (0-1); Eosinophil# 0.07 X10^3/uL; Eosinophils% 0.5 % (0-5); Hematocrit 35.6 % (37-47); Hemoglobin 11.5 g/dL (12.0-15.0); Lymphocyte # 3.64 X10^3/ul (0.83-4.51); Lymphocyte % 25.7 % (19-41); Mean Corp Hgb Conc 32.3 g/dL (32-36); Mean Corpuscular Hgb 28.8 pg (27.0-32.0); Mean Platelet Vol. 10.7 fl (6.2-12.0); Monocyte# 1.66 X10^3/uL; Monocyte% 11.7 % (0-10); NRBC Flagged by Analyzer 0 % (0-5); Neutrophil # 8.58 X10^3/uL (2.7-7.7); Neutrophil % 60.6 % (47-70); POSITIVE DIFFERENTIAL YES; Platelet Count 317 K/mm3 (150-450); RBC Distribution Width CV 13.2 % (11.6-14.6); RBC Distribution Width SD 43.1 fl (35.1-43.9); White Blood Count 14.2 K/mm3 (4.4-11.0)
[2023-06-29 07:53] VITALS: BP 147/95; PULSE 67; RESP 18; TEMP 36.6; O2SAT 97
[2023-06-29] MEDS: buPROPion (XL) 300 MG TABLET.XL PO (07:59)
[2023-06-29] MEDS: OLANZapine 10 MG Tablet PO (07:59)
[2023-06-29 08:00] VITALS: PULSE 67
[2023-06-29] MEDS: Meloxicam 15 MG Tablet PO (08:00)
[2023-06-29] MEDS: Pantoprazole Sodium 20 MG Tablet PO (08:00)
[2023-06-29] MEDS: Metoprolol(XL)Succ 50 MG Tablet PO (08:00)
[2023-06-29] MEDS: Mirabegron 25 MG TAB.ER.24H PO (08:00)
[2023-06-29] MEDS: Baclofen 10 MG Tablet 5 MG PO ×2 (08:00→21:49)
[2023-06-29] MEDS: amLODIPine 10 MG Tablet PO (08:01)
[2023-06-29] MEDS: Senna/Docusate Sodium 1 Tablet 2 TABLET PO (08:02)
[2023-06-29] MEDS: Morphine 2 MG/ML Syringe IV ×2 (08:02→21:48)
[2023-06-29] MEDS: 0.9% Saline Lock 10 ML Syringe IV ×4 (08:02→21:49)
[2023-06-29 08:17] LABS: Anion Gap 2 (5-15); BUN 30 mg/dL (7-18); BUN/Creat Ratio 41.8 RATIO (10-20); Calcium,Total 8.8 mg/dL (8.5-10.1); Chloride 109 mmol/L (98-107); Creatinine, Serum 0.72 mg/dL (0.55-1.02); EST Glomerular Filtration Rate 90 mL/min (>60); Est Glom Filt Rate - Afr Amer 109 mL/min (>60); Estimated Creatinine Clearance 97.64 ml/min; Glucose 86 mg/dL (74-106); Sodium Level 141 mmol/L (136-145)
--- NOTE | 2023-06-29 08:25 | CPS ---
Pt says she takes aerosols prn @home and rarely takes them. Asked if they could be prn. This RT will contact via [employer] texting.
[2023-06-29 08:26] LABS: Differential Indicated SCAN CRITERIA MET
--- NOTE | 2023-06-29 08:31 | PN.HOSP_ITS ---
Reason for Visit Reason for Visit: Diagnoses Hypothyroidism, unspecified (06/27/23) Disease of spinal cord, unspecified (06/27/23) Weakness (06/27/23) Unspecified displaced fracture of third cervical vertebra, initial encounter for closed fracture (06/27/23) Tobacco use (06/27/23) Arthrodesis status (06/27/23) Other specified postprocedural states (06/27/23) Subjective Subjective Postoperative day 2 following patient's surgery. Pain is tolerable. Objective Data Objective Data Vital Signs: Vital Signs Temp Pulse Resp BP Pulse Ox O2 Del Method O2 Flow Rate 97.8 F 67 18 147/95 H 97 Room Air 3 06/29/23 07:53 06/29/23 07:53 06/29/23 07:53 06/29/23 07:53 06/29/23 07:53 06/29/23 07:53 06/27/23 20:08 Oxygen Flow Rate (L/min) 3 Oxygen Delivery Method Room Air Weight: 86.2 kg Body Mass Index (BMI) 29.8 Intake & Output: Intake and Output for Last 24 Hours 06/27/23 06/28/23 06/29/23 23:59 23:59 23:59 Intake Total 2779.75 / 2779.75 916.67 / 916.67 110 / 110 Output Total 1030 / 1030 2430 / 2430 1340 / 1340 Balance 1749.75 / 1749.75 -1513.33 / -1513.33 -1230 / -1230 Lab / Micro Data 06/29/23 06:38 06/29/23 06:38 Labs: Laboratory Results - last 24 hr 06/29/23 06:38: WBC 14.2 H, RBC 4.00 L, Hgb 11.5 L, Hct 35.6 L, MCV 89.0, MCH 28.8, MCHC 32.3, RDW Std Deviation 43.1, RDW Coeff of Sandeep 13.2, Plt Count 317, MPV 10.7, Immature Gran % (Auto) 1.100 H, Neut % (Auto) 60.6, Lymph % (Auto) 25.7, [place] % (Auto) 11.7 H, Eos % (Auto) 0.5, Baso % (Auto) 0.4, Absolute Neuts (auto) 8.6 H, Absolute Lymphs (auto) 3.64, Nucleated RBC % 0, Sodium 141, Potassium 4.0, Chloride 109 H, Carbon Dioxide 30.0, Anion Gap 2 L, BUN 30 H, Creatinine 0.72, Estim Creat Clear Calc 97.64, Est GFR (MDRD) Af Amer 109, Est GFR (MDRD) Non-Af 90, BUN/Creatinine Ratio 41.8 H, Glucose 86, Calcium 8.8 Radiography Diagnostic Testing: Radiology Impression Cervical Spine X-Ray 06/28/23 11:09 IMPRESSION: Fusion at C3-C5 with no complicating features. Electronically Signed: Douglas Holman MD at 15:34 EST Reading Location ID and State: [address] [place] [address] , Service support , Physical Exam Narrative GENERAL: cooperative HEENT: Neck immobilized EYES; Anicteric, Normal Conjunctiva NECK; supple, normal thyroid, RESPIRATORY: Diminished to auscultation CARDIOVASCULAR: Regular S1 S2, GI: soft, normoactive bowel sounds, : No Renal angle tenderness; EXTREMITIES: No edema, no clubbing, MUSCULOSKELETAL: no muscle wasting NEURO: Awake; no lateralizing signs. SKIN: No Rash PSYCH; Flat affect Assessment & Plan Assessment/Plan (1) Generalized weakness: (2) History of neck surgery: (3) Hypothyroidism: QUALIFIERS: Hypothyroidism type: unspecified Qualified Code(s): E03.9 - Hypothyroidism, unspecified (4) S/P cervical spinal fusion: (5) Tobacco use: PLAN: Plan Patient is a 53-year-old lady with recent C3-5 anterior cervical discectomy and fusion with plate instrumentation by Dr. Kendall Skinner on 05/18/2023, recent hospitalization from 06/17/2023 to 06/21/2023 who presented with progressive generalized weakness in arms and legs 1. Physical deconditioning in the context of recent C3-C5 cervical discectomy with fusion. Patient admitted to regular nursing floor. Cervical x-ray obtained on admission demonstrated stable cervical fusion.- Requested for PT OT eval and social services technician to assist with discharge planning. Consult was also placed to patient spine surgeon. Case was discussed with patient spine surgeon recommended initiation of steroids ? 06/27/2023 ; Case was discussed with Dr. Skinner plan is for patient to undergo repeat imaging studies with MRI of the cervical spine ? 06/28/2023;Patient's MRI obtained as part of her evaluation did show worsening of now severe central canal stenosis at C3-C4 disc space level due to posterior midline disc protrusion displaced by disc implant in front of the disc protrusion. This is causing spinal cord compression with intramedullary high signal intensity worrisome for cord contusion. Patient subsequently underwent C3-C5 posterior decompression laminectomy, posterior spinal instrumented fusion by Dr. Kendall Skinner on 06/27/2023 2. Acute kidney injury ? Secondary to dehydration patient be managed with IV fluid with subsequent monitoring of electrolytes ordered 3. COPD ? Currently not in exacerbation aerosol treatment as needed 4. Chronic pain ? Continued with current pain regimen 5. Hypothyroidism - Patient is on levothyroxine home dose continued 6. Hypertension - Blood pressure controlled, home medications continued with dose adjustment as needed 7. GERD ? On PPI 8. Psychiatric disorder NOS -Continue home psychotropic medications 9. Tobacco dependence - Counseled on cessation, offered nicotine patch for tobacco cravings 10. DVT prophylaxis ? Bilateral SCDs for now 11. Physical deconditioning - Requested for PT OT eval and social services technician to assist with discharge planning Time spent in the patient's overall evaluation,decision-making process, review of diagnostic data, adjustment of management, discussion with other providers, nursing nursing and ancillary staff involved in patient's care documentation, 40 minutes Charges/Coding Visit Charges Inpatient E&M: 36670 Subs Hosp L2
--- NOTE | 2023-06-29 09:24 | CASEMGMT ---
Addendum entered by Shruthi Saunders 06/29/23 10:48: [facility] accepted patient and she would like to proceed. Asked for precert to be submitted. Updated Navi Skillled to disregard referral. SW updated. Shruthi Saunders, Discharge Planning Asst. Original Note: Discharge Planning Referral sent to [facility] and [facility] Alf via [employer]. Patient requests a snf that allows her to smoke. Shruthi Saunders, Discharge Planning Asst.
[2023-06-29 09:41] LABS: Differential Comment S
--- NOTE | 2023-06-29 09:45 | PN.ORTHO_ITS ---
Subjective Subjective Postop day 2 status post C3-5 posterior decompression fusion. She refused out of bed with PT yesterday. Agreeable to work with PT today. Pain is better controlled compared to yesterday. Continues to show improvement in both upper and both lower extremities. Able to stand and take a few steps with the walker. Objective Data Objective Data Vital Signs: Vital Signs Temp Pulse Resp BP Pulse Ox O2 Del Method O2 Flow Rate 97.8 F 67 18 147/95 H 97 Room Air 3 06/29/23 07:53 06/29/23 08:00 06/29/23 07:53 06/29/23 07:53 06/29/23 07:53 06/29/23 07:53 06/27/23 20:08 Oxygen Flow Rate (L/min) 3 Oxygen Delivery Method Room Air Weight: 190 lb 0.615 oz Body Mass Index (BMI) 29.8 Intake & Output: Intake and Output for Last 24 Hours 06/27/23 06/28/23 06/29/23 23:59 23:59 23:59 Intake Total 2779.75 / 2779.75 916.67 / 916.67 110 / 110 Output Total 1030 / 1030 2430 / 2430 1340 / 1340 Balance 1749.75 / 1749.75 -1513.33 / -1513.33 -1230 / -1230 Lab / Micro Data 06/29/23 06:38 06/29/23 06:38 Labs: Laboratory Results - last 24 hr 06/29/23 06:38: WBC 14.2 H, RBC 4.00 L, Hgb 11.5 L, Hct 35.6 L, MCV 89.0, MCH 28.8, MCHC 32.3, RDW Std Deviation 43.1, RDW Coeff of Sandeep 13.2, Plt Count 317, MPV 10.7, Immature Gran % (Auto) 1.100 H, Neut % (Auto) 60.6, Lymph % (Auto) 25.7, [place] % (Auto) 11.7 H, Eos % (Auto) 0.5, Baso % (Auto) 0.4, Absolute Neuts (auto) 8.6 H, Absolute Lymphs (auto) 3.64, Nucleated RBC % 0, Differential Comment S, Diff Path Review October, Sodium 141, Potassium 4.0, Chloride 109 H, Carbon Dioxide 30.0, Anion Gap 2 L, BUN 30 H, Creatinine 0.72, Estim Creat Clear Calc 97.64, Est GFR (MDRD) Af Amer 109, Est GFR (MDRD) Non-Af 90, BUN/Creatinine Ratio 41.8 H, Glucose 86, Calcium 8.8 Radiography Diagnostic Testing: Radiology Impression Cervical Spine X-Ray 06/28/23 11:09 IMPRESSION: Fusion at C3-C5 with no complicating features. Electronically Signed: Douglas Holman MD at 15:34 EST , Physical Exam Narrative Examination of the neck shows solis dressing with sanguinous staining in the lower end. I removed the Hemovac drain. Unclear if solis is maintaining negative pressure despite reinforcing additional Tegaderm in the top and as well. Neurologic eval shows 4+ strength on the right and 4 on the left upper and lower extremities. She has a forward leaning posture of her neck which I discouraged and had her look up and reinforce the anterior end of the collar. Assessment & Plan Assessment/Plan (1) S/P cervical spinal fusion: PLAN: Plan Drain removed. Will continue to monitor solis dressing and change if Saturated. X-rays done yesterday reviewed shows hardware in good alignment. Encourage looking up and neck extension and maintenance of that position with the collar. Again explained to her the critical need for aggressive physical therapy and out of bed mobility. I had her get up and transfer to chair using a walker. Will likely need rehab placement. Okay to taper off steroids now. Will continue to follow.
[2023-06-29 15:07] VITALS: BP 128/85; PULSE 77; RESP 18; TEMP 36.9; O2SAT 94
[2023-06-29 21:34] VITALS: BP 134/98; PULSE 73; RESP 16; TEMP 36.6; O2SAT 93
[2023-06-29] MEDS: traZODone 100 MG Tablet 150 MG PO (21:49)
[2023-06-29] MEDS: Atorvastatin Calcium 40 MG Tablet PO (21:50)
[2023-06-30 03:45] VITALS: BP 133/93; PULSE 63; RESP 16; TEMP 36.4; O2SAT 94
[2023-06-30] MEDS: Pregabalin 75 MG Capsule 150 MG PO ×3 (06:20→22:04)
[2023-06-30] MEDS: Levothyroxine 25 MCG TABLET PO (06:20)
[2023-06-30] MEDS: Acetaminophen 500 MG Tablet 1000 MG PO ×3 (06:20→22:04)
[2023-06-30] MEDS: oxyCODONE 5 MG Tablet PO ×4 (06:23→22:03)
[2023-06-30 08:09] VITALS: O2SAT 93
--- NOTE | 2023-06-30 08:53 | PN.HOSP_ITS ---
Reason for Visit Reason for Visit: Diagnoses Hypothyroidism, unspecified (06/27/23) Disease of spinal cord, unspecified (06/27/23) Weakness (06/27/23) Unspecified displaced fracture of third cervical vertebra, initial encounter for closed fracture (06/27/23) Tobacco use (06/27/23) Arthrodesis status (06/27/23) Other specified postprocedural states (06/27/23) Subjective Subjective Patient seen pain is tolerable. Awaiting insurance precertification prior to transfer [facility] Objective Data Objective Data Vital Signs: Vital Signs Temp Pulse Resp BP Pulse Ox O2 Del Method O2 Flow Rate 97.5 F L 63 16 133/93 H 93 Room Air 3 06/30/23 03:45 06/30/23 03:45 06/30/23 03:45 06/30/23 03:45 06/30/23 08:09 06/30/23 08:09 06/27/23 20:08 Oxygen Flow Rate (L/min) 3 Oxygen Delivery Method Room Air Weight: 86.2 kg Body Mass Index (BMI) 29.8 Intake & Output: Intake and Output for Last 24 Hours 06/28/23 06/29/23 06/30/23 23:59 23:59 23:59 Intake Total 916.67 / 916.67 820 / 820 500 / 500 Output Total 2430 / 2430 1340 / 1340 Balance -1513.33 / -1513.33 -520 / -520 500 / 500 Lab / Micro Data 06/29/23 06:38 06/29/23 06:38 Labs: Laboratory Results - last 24 hr 06/29/23 06:38: Differential Comment S, Diff Path Review May foll Physical Exam Narrative GENERAL: cooperative HEENT: Neck immobilized EYES; Anicteric, Normal Conjunctiva NECK; supple, normal thyroid, RESPIRATORY: Diminished to auscultation CARDIOVASCULAR: Regular S1 S2, GI: soft, normoactive bowel sounds, : No Renal angle tenderness; EXTREMITIES: No edema, no clubbing, MUSCULOSKELETAL: no muscle wasting NEURO: Awake; no lateralizing signs. SKIN: No Rash PSYCH; Flat affect Assessment & Plan Assessment/Plan (1) Generalized weakness: (2) History of neck surgery: (3) Hypothyroidism: QUALIFIERS: Hypothyroidism type: unspecified Qualified Code(s): E03.9 - Hypothyroidism, unspecified (4) S/P cervical spinal fusion: (5) Tobacco use: PLAN: Plan Patient is a 53-year-old lady with recent C3-5 anterior cervical discectomy and fusion with plate instrumentation by Dr. Kendall Skinner on 05/18/2023, recent hospitalization from 06/17/2023 to 06/21/2023 who presented with progressive generalized weakness in arms and legs 1. Physical deconditioning in the context of recent C3-C5 cervical discectomy with fusion. Patient admitted to regular nursing floor. Cervical x-ray obtained on admission demonstrated stable cervical fusion.- Requested for PT OT eval and social media specialist to assist with discharge planning. Consult was also placed to patient spine surgeon. Case was discussed with patient spine surgeon recommended initiation of steroids ? 06/27/2023 ; Case was discussed with Dr. Skinner plan is for patient to undergo repeat imaging studies with MRI of the cervical spine ? 06/28/2023;Patient's MRI obtained as part of her evaluation did show worsening of now severe central canal stenosis at C3-C4 disc space level due to posterior midline disc protrusion displaced by disc implant in front of the disc protrusion. This is causing spinal cord compression with intramedullary high signal intensity worrisome for cord contusion. Patient subsequently underwent C3-C5 posterior decompression laminectomy, posterior spinal instrumented fusion by Dr. Kendall Skinner on 06/27/2023 ? 06/30/2023 pain remains well-controlled. 2. Acute kidney injury ? Secondary to dehydration patient be managed with IV fluid with subsequent monitoring of electrolytes ordered ? 06/30/2023 resolved 3. COPD ? Currently not in exacerbation aerosol treatment as needed 4. Chronic pain ? Continued with current pain regimen 5. Hypothyroidism - Patient is on levothyroxine home dose continued 6. Hypertension - Blood pressure controlled, home medications continued with dose adjustment as needed 7. GERD ? On PPI 8. Psychiatric disorder NOS -Continue home psychotropic medications 9. Tobacco dependence - Counseled on cessation, offered nicotine patch for tobacco cravings 10. DVT prophylaxis ? Bilateral SCDs for now 11. Physical deconditioning - Requested for PT OT eval and social media specialist to assist with discharge planning Time spent in the patient's overall evaluation,decision-making process, review of diagnostic data, adjustment of management, discussion with other providers, nursing nursing and ancillary staff involved in patient's care documentation,35 minutes Charges/Coding Visit Charges Inpatient E&M: 44416 Subs Hosp L2
[2023-06-30 09:40] LABS: Pathologist Review Reviewed
[2023-06-30 10:22] VITALS: BP 143/86; PULSE 88; RESP 18; TEMP 36.9; O2SAT 93
[2023-06-30] MEDS: 0.9% Saline Lock 10 ML Syringe IV ×2 (10:27→10:29)
[2023-06-30] MEDS: Morphine 2 MG/ML Syringe IV (10:29)
[2023-06-30 10:31] VITALS: BP 143/86; PULSE 88
[2023-06-30] MEDS: Baclofen 10 MG Tablet 5 MG PO ×2 (10:31→22:04)
[2023-06-30] MEDS: Pantoprazole Sodium 20 MG Tablet PO (10:31)
[2023-06-30] MEDS: Metoprolol(XL)Succ 50 MG Tablet PO (10:31)
[2023-06-30] MEDS: amLODIPine 10 MG Tablet PO (10:32)
[2023-06-30] MEDS: Vibegron 75 MG TABLET PO (10:32)
[2023-06-30] MEDS: Meloxicam 15 MG Tablet PO (10:32)
[2023-06-30] MEDS: buPROPion (XL) 300 MG TABLET.XL PO (10:32)
[2023-06-30] MEDS: OLANZapine 10 MG Tablet PO (10:33)
[2023-06-30] MEDS: Senna/Docusate Sodium 1 Tablet 2 TABLET PO (10:43)
--- NOTE | 2023-06-30 12:54 | PCM.PN.ORT ---
Subjective Subjective Postop day 3 status post C3-5 posterior spinal fusion. Pain better controlled. Has been ambulating at least once a day with physical therapy in the hallways. Not ambulating by herself due to fall risk. Objective Data Objective Data Vital Signs: Vital Signs Temp Pulse Resp BP Pulse Ox O2 Del Method O2 Flow Rate 98.4 F 88 18 143/86 H 93 Room Air 3 06/30/23 10:06/30/23 10:06/30/23 10:06/30/23 10:06/30/23 10:06/30/23 10:06/27/23 20:08 Oxygen Flow Rate (L/min) 3 Oxygen Delivery Method Room Air Weight: 190 lb 0.615 oz Body Mass Index (BMI) 29.8 Intake & Output: Intake and Output for Last 24 Hours 06/28/23 06/29/23 06/30/23 23:59 23:59 23:59 Intake Total 916.67 / 916.67 820 / 820 500 / 500 Output Total 2430 / 2430 1340 / 1340 Balance -1513.33 / -1513.33 -520 / -520 500 / 500 Lab / Micro Data 06/29/23 06:38 06/29/23 06:38 Labs: Laboratory Results - last 24 hr 06/29/23 06:38: Diff Path Review Reviewed Physical Exam Narrative Examination of the neck shows dressing with sanguinous staining unchanged from yesterday. Neurologic exam is stable compared to yesterday. Assessment & Plan Assessment/Plan (1) S/P cervical spinal fusion: PLAN: Plan Continues to do well. Explained to her that axial pain tends to be worse with posterior approaches to the neck and anterior approaches. Well-fitting snug collar should help with pain control. Continue aggressive PT OT mobilization. Would suggest 2-3 time out of bed ambulation in the hallways with nursing if feasible. Awaiting discharge to rehab center. Patient to follow-up with me in 2 weeks in clinic.
--- NOTE | 2023-06-30 13:45 | CASEMGMT ---
Social Work SW received message from [facility] restaurant general manager ([phone]) requesting discharge information. VM left updating [facility] that pt will be discharging to [facility] pending precert. Message sent to [facility] inquiring about precert status. Plan: [facility], pending precert ZAN Ochoa
[2023-06-30 15:31] VITALS: BP 135/89; PULSE 88; RESP 18; TEMP 37.2; O2SAT 94
[2023-06-30 21:51] VITALS: BP 130/87; PULSE 76; RESP 18; TEMP 37; O2SAT 92
[2023-06-30] MEDS: traZODone 100 MG Tablet 150 MG PO (22:05)
[2023-06-30] MEDS: Atorvastatin Calcium 40 MG Tablet PO (22:05)
[2023-07-01 04:26] VITALS: BP 113/66; PULSE 69; RESP 18; TEMP 36.5; O2SAT 98
[2023-07-01] MEDS: Pregabalin 75 MG Capsule 150 MG PO ×3 (05:09→20:47)
[2023-07-01] MEDS: Levothyroxine 25 MCG TABLET PO (05:09)
[2023-07-01] MEDS: Acetaminophen 500 MG Tablet 1000 MG PO ×3 (05:10→20:47)
[2023-07-01] MEDS: oxyCODONE 5 MG Tablet PO ×4 (05:10→20:48)
[2023-07-01 05:19] LABS: Absolute Lymphocyte Count 2.97 X10^3/uL (0.83-4.51); Absolute Neutrophil Count 8.6 X10^3/uL (2.0-7.7); Basophil# 0.05 X10^3/uL; Basophil% 0.4 % (0-1); Eosinophil# 0.32 X10^3/uL; Eosinophils% 2.4 % (0-5); Hematocrit 34.3 % (37-47); Hemoglobin 11.2 g/dL (12.0-15.0); Lymphocyte # 2.97 X10^3/ul (0.83-4.51); Lymphocyte % 21.8 % (19-41); Mean Corp Hgb Conc 32.7 g/dL (32-36); Mean Corpuscular Hgb 29.3 pg (27.0-32.0); Mean Corpuscular Volume 89.8 fL (81-99); Mean Platelet Vol. 10.6 fl (6.2-12.0); Monocyte# 1.44 X10^3/uL; Monocyte% 10.6 % (0-10); NRBC Flagged by Analyzer 0 % (0-5); Neutrophil # 8.62 X10^3/uL (2.7-7.7); Neutrophil % 63.3 % (47-70); Platelet Count 321 K/mm3 (150-450); RBC Distribution Width CV 13.2 % (11.6-14.6); RBC Distribution Width SD 43.5 fl (35.1-43.9); Red Blood Count 3.82 M/mm3 (4.2-5.4); White Blood Count 13.6 K/mm3 (4.4-11.0)
[2023-07-01 05:42] LABS: Anion Gap 4 (5-15); BUN 22 mg/dL (7-18); BUN/Creat Ratio 40.7 RATIO (10-20); Calcium,Total 8.4 mg/dL (8.5-10.1); Chloride 104 mmol/L (98-107); Creatinine, Serum 0.54 mg/dL (0.55-1.02); EST Glomerular Filtration Rate 124 mL/min (>60); Est Glom Filt Rate - Afr Amer 150 mL/min (>60); Estimated Creatinine Clearance 130.19 ml/min; Glucose 119 mg/dL (74-106); Potassium 4.1 mmol/L (3.5-5.1); Sodium Level 138 mmol/L (136-145)
[2023-07-01 07:43] VITALS: BP 92/71; PULSE 68; RESP 18; TEMP 36.6; O2SAT 92
--- NOTE | 2023-07-01 07:53 | PN.HOSP_ITS ---
Reason for Visit Reason for Visit: Diagnoses Hypothyroidism, unspecified (06/27/23) Disease of spinal cord, unspecified (06/27/23) Weakness (06/27/23) Unspecified displaced fracture of third cervical vertebra, initial encounter for closed fracture (06/27/23) Tobacco use (06/27/23) Arthrodesis status (06/27/23) Other specified postprocedural states (06/27/23) Subjective Subjective patient was transitioned from IV pain medication to p.o. pain medication which she is tolerated well so Objective Data Objective Data Vital Signs: Vital Signs Temp Pulse Resp BP Pulse Ox O2 Del Method O2 Flow Rate 97.8 F 68 18 92/71 92 Room Air 2 07/01/23 07:43 07/01/23 07:43 07/01/23 07:43 07/01/23 07:43 07/01/23 07:43 07/01/23 07:43 07/01/23 06:50 Oxygen Flow Rate (L/min) 2 Oxygen Delivery Method Room Air Weight: 86.2 kg Body Mass Index (BMI) 29.8 Intake & Output: Intake and Output for Last 24 Hours 06/29/23 06/30/23 07/01/23 23:59 23:59 23:59 Intake Total 820 / 820 1350 / 1350 800 / 800 Output Total 1340 / 1340 1000 / 1000 800 / 800 Balance -520 / -520 350 / 350 0 / 0 Lab / Micro Data 07/01/23 04:40 07/01/23 04:40 Labs: Laboratory Results - last 24 hr 06/29/23 06:38: Diff Path Review Reviewed 07/01/23 04:40: WBC 13.6 H, RBC 3.82 L, Hgb 11.2 L, Hct 34.3 L, MCV 89.8, MCH 29.3, MCHC 32.7, RDW Std Deviation 43.5, RDW Coeff of Sandeep 13.2, Plt Count 321, MPV 10.6, Immature Gran % (Auto) 1.500 H, Neut % (Auto) 63.3, Lymph % (Auto) 21.8, [place] % (Auto) 10.6 H, Eos % (Auto) 2.4, Baso % (Auto) 0.4, Absolute Neuts (auto) 8.6 H, Absolute Lymphs (auto) 2.97, Nucleated RBC % 0, Sodium 138, Potassium 4.1, Chloride 104, Carbon Dioxide 30.0, Anion Gap 4 L, BUN 22 H, Creatinine 0.54 L, Estim Creat Clear Calc 130.19, Est GFR (MDRD) Af Amer 150, Est GFR (MDRD) Non-Af 124, BUN/Creatinine Ratio 40.7 H, Glucose 119 H, Calcium 8.4 L, Phosphorus 6.0 H, Magnesium 2.0 Physical Exam Narrative GENERAL: cooperative HEENT: Neck immobilized EYES; Anicteric, Normal Conjunctiva NECK; supple, normal thyroid, RESPIRATORY: Diminished to auscultation CARDIOVASCULAR: Regular S1 S2, GI: soft, normoactive bowel sounds, : No Renal angle tenderness; EXTREMITIES: No edema, no clubbing, MUSCULOSKELETAL: no muscle wasting NEURO: Awake; no lateralizing signs. SKIN: No Rash PSYCH; Flat affect Assessment & Plan Assessment/Plan (1) Generalized weakness: (2) S/P cervical spinal fusion: PLAN: Plan Patient is a 53-year-old lady with recent C3-5 anterior cervical discectomy and fusion with plate instrumentation by Dr. Kendall Skinner on 05/18/2023, recent hospitalization from 06/17/2023 to 06/21/2023 who presented with progressive generalized weakness in arms and legs 1. Physical deconditioning in the context of recent C3-C5 cervical discectomy with fusion. Patient admitted to regular nursing floor. Cervical x-ray obtained on admission demonstrated stable cervical fusion.- Requested for PT OT eval and social media developer to assist with discharge planning. Consult was also placed to patient spine surgeon. Case was discussed with patient spine surgeon recommended initiation of steroids ? 06/27/2023 ; Case was discussed with Dr. Skinner plan is for patient to undergo repeat imaging studies with MRI of the cervical spine ? 06/28/2023;Patient's MRI obtained as part of her evaluation did show worsening of now severe central canal stenosis at C3-C4 disc space level due to posterior midline disc protrusion displaced by disc implant in front of the disc protrusion. This is causing spinal cord compression with intramedullary high signal intensity worrisome for cord contusion. Patient subsequently underwent C3-C5 posterior decompression laminectomy, posterior spinal instrumented fusion by Dr. Kendall Skinner on 06/27/2023 ? 06/30/2023 pain remains well-controlled. ?07/01/2023 patient was transitioned from IV pain medication to p.o. pain medication which she is tolerated well so 2. Acute kidney injury ? Secondary to dehydration patient be managed with IV fluid with subsequent monitoring of electrolytes ordered ? 06/30/2023 resolved 3. COPD ? Currently not in exacerbation aerosol treatment as needed 4. Chronic pain ? Continued with current pain regimen 5. Hypothyroidism - Patient is on levothyroxine home dose continued 6. Hypertension - Blood pressure controlled, home medications continued with dose adjustment as needed 7. GERD ? On PPI 8. Psychiatric disorder NOS -Continue home psychotropic medications 9. Tobacco dependence - Counseled on cessation, offered nicotine patch for tobacco cravings 10. DVT prophylaxis ? Bilateral SCDs for now 11. Physical deconditioning - Requested for PT OT eval and social media developer to assist with discharge planning Time spent in the patient's overall evaluation,decision-making process, review of diagnostic data, adjustment of management, discussion with other providers, nursing nursing and ancillary staff involved in patient's care documentation,35 minutes Charges/Coding Visit Charges Inpatient E&M: 91726 Subs Hosp L2
--- NOTE | 2023-07-01 09:16 | PCM.PN.ORT ---
Subjective Subjective Postop day 4 status post C3-5 posterior decompression fusion. Pain well-controlled. Collar well-fitting. Was able to ambulate the hallways 3 times yesterday with PT and nursing. Objective Data Objective Data Vital Signs: Vital Signs Temp Pulse Resp BP Pulse Ox O2 Del Method O2 Flow Rate 97.8 F 68 18 92/71 92 Room Air 2 07/01/23 07:43 07/01/23 07:43 07/01/23 07:43 07/01/23 07:43 07/01/23 07:43 07/01/23 07:57 07/01/23 06:50 Oxygen Flow Rate (L/min) 2 Oxygen Delivery Method Room Air Weight: 190 lb 0.615 oz Body Mass Index (BMI) 29.8 Intake & Output: Intake and Output for Last 24 Hours 06/29/23 06/30/23 07/01/23 23:59 23:59 23:59 Intake Total 820 / 820 1350 / 1350 800 / 800 Output Total 1340 / 1340 1000 / 1000 800 / 800 Balance -520 / -520 350 / 350 0 / 0 Lab / Micro Data 07/01/23 04:40 07/01/23 04:40 Labs: Laboratory Results - last 24 hr 06/29/23 06:38: Diff Path Review Reviewed 07/01/23 04:40: WBC 13.6 H, RBC 3.82 L, Hgb 11.2 L, Hct 34.3 L, MCV 89.8, MCH 29.3, MCHC 32.7, RDW Std Deviation 43.5, RDW Coeff of Sandeep 13.2, Plt Count 321, MPV 10.6, Immature Gran % (Auto) 1.500 H, Neut % (Auto) 63.3, Lymph % (Auto) 21.8, [place] % (Auto) 10.6 H, Eos % (Auto) 2.4, Baso % (Auto) 0.4, Absolute Neuts (auto) 8.6 H, Absolute Lymphs (auto) 2.97, Nucleated RBC % 0, Sodium 138, Potassium 4.1, Chloride 104, Carbon Dioxide 30.0, Anion Gap 4 L, BUN 22 H, Creatinine 0.54 L, Estim Creat Clear Calc 130.19, Est GFR (MDRD) Af Amer 150, Est GFR (MDRD) Non-Af 124, BUN/Creatinine Ratio 40.7 H, Glucose 119 H, Calcium 8.4 L, Phosphorus 6.0 H, Magnesium 2.0 Physical Exam Narrative Examination the neck shows dressing CDI, except for a sanguinous staining in the lower right corner. Neuro exam is stable compared to yesterday. Assessment & Plan Assessment/Plan (1) S/P cervical spinal fusion: PLAN: Plan Continue PT OT mobilization. Okay to restart blood thinners if indicated. Nadeem suction battery can be detached on postop day 5/tomorrow. Nadeem dressing will stay on until postop day 7/Tuesday, and then can be removed and then dry gauze dressing changed daily. [place] will come out after a minimum of 2 weeks after surgery. Patient will see me for 2-week follow-up visit in the clinic. Likely discharge to rehab today. Will sign off from orthopedic perspective for now. Please reach out to Ortho/spine on-call as needed.
[2023-07-01] MEDS: Baclofen 10 MG Tablet 5 MG PO ×2 (10:35→20:48)
[2023-07-01] MEDS: buPROPion (XL) 300 MG TABLET.XL PO (10:37)
[2023-07-01] MEDS: Vibegron 75 MG TABLET PO (10:37)
[2023-07-01] MEDS: Meloxicam 15 MG Tablet PO (10:38)
[2023-07-01] MEDS: Pantoprazole Sodium 20 MG Tablet PO (10:39)
[2023-07-01] MEDS: OLANZapine 10 MG Tablet PO (10:40)
[2023-07-01 10:44] VITALS: BP 110/70; PULSE 86; O2SAT 96
[2023-07-01] MEDS: Senna/Docusate Sodium 1 Tablet 2 TABLET PO (10:47)
[2023-07-01 12:51] VITALS: BP 126/77; PULSE 85; RESP 18; TEMP 36.9; O2SAT 92
--- NOTE | 2023-07-01 14:57 | CASEMGMT ---
Social Work Plan if for pt to go to [facility]. Per message from Elisabet dale is still pending at this time. SW updated pt. Plan: [facility], pending ZAN Nicholas
[2023-07-01 17:29] VITALS: BP 119/88; PULSE 78; RESP 20; TEMP 37.2; O2SAT 92
[2023-07-01 20:38] VITALS: BP 130/76; PULSE 89; RESP 18; TEMP 36.8; O2SAT 94
[2023-07-01] MEDS: traZODone 100 MG Tablet 150 MG PO (20:47)
[2023-07-01] MEDS: Atorvastatin Calcium 40 MG Tablet PO (20:48)
[2023-07-02] VITALS (8 sets, daily range): BP systolic 113–140; BP diastolic 73–97; PULSE 76–88; RESP 18; TEMP 36.6–36.8; O2SAT 91–95
[2023-07-02] MEDS: Pregabalin 75 MG Capsule 150 MG PO ×3 (05:20→21:12)
[2023-07-02] MEDS: Levothyroxine 25 MCG TABLET PO (05:20)
[2023-07-02] MEDS: oxyCODONE 5 MG Tablet PO ×3 (05:20→20:19)
[2023-07-02] MEDS: Acetaminophen 500 MG Tablet 1000 MG PO ×3 (05:20→21:13)
[2023-07-02 07:22] LABS: Absolute Lymphocyte Count 2.08 X10^3/uL (0.83-4.51); Basophil# 0.06 X10^3/uL; Basophil% 0.6 % (0-1); Eosinophil# 0.28 X10^3/uL; Eosinophils% 2.6 % (0-5); Hemoglobin 10.2 g/dL (12.0-15.0); Lymphocyte # 2.08 X10^3/ul (0.83-4.51); Lymphocyte % 19.3 % (19-41); Mean Corp Hgb Conc 31.9 g/dL (32-36); Mean Corpuscular Hgb 29.1 pg (27.0-32.0); Mean Corpuscular Volume 91.2 fL (81-99); Mean Platelet Vol. 10.6 fl (6.2-12.0); Monocyte# 1.19 X10^3/uL; NRBC Flagged by Analyzer 0 % (0-5); Neutrophil # 6.97 X10^3/uL (2.7-7.7); Neutrophil % 64.6 % (47-70); Platelet Count 263 K/mm3 (150-450); RBC Distribution Width CV 13.2 % (11.6-14.6); RBC Distribution Width SD 43.9 fl (35.1-43.9); Red Blood Count 3.51 M/mm3 (4.2-5.4); White Blood Count 10.8 K/mm3 (4.4-11.0)
--- NOTE | 2023-07-02 07:45 | PCM.PN.HOSP ---
Reason for Visit Reason for Visit: Diagnoses Hypothyroidism, unspecified (06/27/23) Disease of spinal cord, unspecified (06/27/23) Weakness (06/27/23) Unspecified displaced fracture of third cervical vertebra, initial encounter for closed fracture (06/27/23) Tobacco use (06/27/23) Arthrodesis status (06/27/23) Other specified postprocedural states (06/27/23) Subjective Subjective Patient seen pain is controlled awaiting insurance precertification prior to transfer to long term facility Objective Data Objective Data Vital Signs: Vital Signs Temp Pulse Resp BP Pulse Ox O2 Del Method O2 Flow Rate 98.1 F 81 18 136/97 H 94 Nasal Cannula 2 07/02/23 05:11 07/02/23 05:11 07/02/23 05:11 07/02/23 05:11 07/02/23 05:11 07/02/23 05:11 07/02/23 05:11 Oxygen Flow Rate (L/min) 2 Oxygen Delivery Method Nasal Cannula Weight: 86.2 kg Body Mass Index (BMI) 29.8 Intake & Output: Intake and Output for Last 24 Hours 06/30/23 07/01/23 07/02/23 23:59 23:59 23:59 Intake Total 1350 / 1350 2400 / 2400 Output Total 1000 / 1000 1600 / 1600 Balance 350 / 350 800 / 800 Lab / Micro Data 07/02/23 06:55 07/01/23 04:40 Labs: Laboratory Results - last 24 hr 07/02/23 06:55: WBC 10.8, RBC 3.51 L, Hgb 10.2 L, Hct 32.0 L, MCV 91.2, MCH 29.1, MCHC 31.9 L, RDW Std Deviation 43.9, RDW Coeff of Sandeep 13.2, Plt Count 263, MPV 10.6, Immature Gran % (Auto) 1.900 H, Neut % (Auto) 64.6, Lymph % (Auto) 19.3, [place] % (Auto) 11.0 H, Eos % (Auto) 2.6, Baso % (Auto) 0.6, Absolute Neuts (auto) 7.0, Absolute Lymphs (auto) 2.08, Nucleated RBC % 0 Physical Exam Narrative GENERAL: cooperative HEENT: Neck immobilized EYES; Anicteric, Normal Conjunctiva NECK; supple, normal thyroid, RESPIRATORY: Diminished to auscultation CARDIOVASCULAR: Regular S1 S2, GI: soft, normoactive bowel sounds, : No Renal angle tenderness; EXTREMITIES: No edema, no clubbing, MUSCULOSKELETAL: no muscle wasting NEURO: Awake; no lateralizing signs. SKIN: No Rash PSYCH; Flat affect Assessment & Plan Assessment/Plan (1) Generalized weakness: (2) S/P cervical spinal fusion: PLAN: Plan Patient is a 53-year-old lady with recent C3-5 anterior cervical discectomy and fusion with plate instrumentation by Dr. Kendall Skinner on 05/18/2023, recent hospitalization from 06/17/2023 to 06/21/2023 who presented with progressive generalized weakness in arms and legs 1. Physical deconditioning in the context of recent C3-C5 cervical discectomy with fusion. Patient admitted to regular nursing floor. Cervical x-ray obtained on admission demonstrated stable cervical fusion.- Requested for PT OT eval and social media content manager to assist with discharge planning. Consult was also placed to patient spine surgeon. Case was discussed with patient spine surgeon recommended initiation of steroids ? 06/27/2023 ; Case was discussed with Dr. Skinner plan is for patient to undergo repeat imaging studies with MRI of the cervical spine ? 06/28/2023;Patient's MRI obtained as part of her evaluation did show worsening of now severe central canal stenosis at C3-C4 disc space level due to posterior midline disc protrusion displaced by disc implant in front of the disc protrusion. This is causing spinal cord compression with intramedullary high signal intensity worrisome for cord contusion. Patient subsequently underwent C3-C5 posterior decompression laminectomy, posterior spinal instrumented fusion by Dr. Kendall Skinner on 06/27/2023 ? 06/30/2023 pain remains well-controlled. ?07/01/2023 patient was transitioned from IV pain medication to p.o. pain medication which she is tolerated well so 2. Acute kidney injury ? Secondary to dehydration patient be managed with IV fluid with subsequent monitoring of electrolytes ordered ? 06/30/2023 resolved 3. COPD ? Currently not in exacerbation aerosol treatment as needed 4. Chronic pain ? Continued with current pain regimen 5. Hypothyroidism - Patient is on levothyroxine home dose continued 6. Hypertension - Blood pressure controlled, home medications continued with dose adjustment as needed 7. GERD ? On PPI 8. Psychiatric disorder NOS -Continue home psychotropic medications 9. Tobacco dependence - Counseled on cessation, offered nicotine patch for tobacco cravings 10. DVT prophylaxis ? Bilateral SCDs for now 11. Physical deconditioning - Requested for PT OT eval and social media content manager to assist with discharge planning Time spent in the patient's overall evaluation,decision-making process, review of diagnostic data, adjustment of management, discussion with other providers, nursing nursing and ancillary staff involved in patient's care documentation,35 minutes Charges/Coding Visit Charges Inpatient E&M: 62109 Subs Hosp L2
[2023-07-02 09:27] LABS: Anion Gap 6 (5-15); BUN 24 mg/dL (7-18); BUN/Creat Ratio 46.2 RATIO (10-20); Calcium,Total 8.7 mg/dL (8.5-10.1); Chloride 105 mmol/L (98-107); Creatinine, Serum 0.52 mg/dL (0.55-1.02); EST Glomerular Filtration Rate 130 mL/min (>60); Est Glom Filt Rate - Afr Amer 157 mL/min (>60); Glucose 115 mg/dL (74-106); Potassium 4.4 mmol/L (3.5-5.1); Sodium Level 141 mmol/L (136-145)
[2023-07-02] MEDS: buPROPion (XL) 300 MG TABLET.XL PO (10:35)
[2023-07-02] MEDS: Pantoprazole Sodium 20 MG Tablet PO (10:36)
[2023-07-02] MEDS: amLODIPine 10 MG Tablet PO (10:36)
[2023-07-02] MEDS: Baclofen 10 MG Tablet 5 MG PO ×2 (10:36→21:14)
[2023-07-02] MEDS: Meloxicam 15 MG Tablet PO (10:36)
[2023-07-02] MEDS: Vibegron 75 MG TABLET PO (10:37)
[2023-07-02] MEDS: Metoprolol(XL)Succ 50 MG Tablet PO (10:37)
[2023-07-02] MEDS: OLANZapine 10 MG Tablet PO (10:37)
[2023-07-02] MEDS: Senna/Docusate Sodium 1 Tablet 2 TABLET PO (10:42)
[2023-07-02] MEDS: Menthol/Lanolin/Calamine/Znox 113 GM Tube 1 APPLIC TOPICAL ×2 (13:03→21:16)
--- NOTE | 2023-07-02 15:19 | NURSING ---
1500 battery removed from wound vac.
[2023-07-02] MEDS: Atorvastatin Calcium 40 MG Tablet PO (21:12)
[2023-07-02] MEDS: traZODone 100 MG Tablet 150 MG PO (21:14)
[2023-07-03 02:10] VITALS: BP 132/84; PULSE 73; RESP 16; TEMP 37.1; O2SAT 97
[2023-07-03] MEDS: Levothyroxine 25 MCG TABLET PO (05:20)
[2023-07-03] MEDS: Acetaminophen 500 MG Tablet 1000 MG PO (05:20)
[2023-07-03] MEDS: Pregabalin 75 MG Capsule 150 MG PO (05:20)
[2023-07-03] MEDS: oxyCODONE 5 MG Tablet PO ×2 (05:23→10:36)
[2023-07-03 06:27] LABS: Absolute Neutrophil Count 6.4 X10^3/uL (2.0-7.7); Basophil# 0.11 X10^3/uL; Eosinophil# 0.52 X10^3/uL; Eosinophils% 4.8 % (0-5); Hematocrit 35.3 % (37-47); Lymphocyte % 22.2 % (19-41); Mean Corp Hgb Conc 31.2 g/dL (32-36); Mean Corpuscular Hgb 28.9 pg (27.0-32.0); Mean Corpuscular Volume 92.7 fL (81-99); Mean Platelet Vol. 10.7 fl (6.2-12.0); Monocyte# 1.15 X10^3/uL; Monocyte% 10.7 % (0-10); NRBC Flagged by Analyzer 0 % (0-5); Neutrophil # 6.37 X10^3/uL (2.7-7.7); Neutrophil % 59.1 % (47-70); Platelet Count 323 K/mm3 (150-450); RBC Distribution Width SD 43.9 fl (35.1-43.9); Red Blood Count 3.81 M/mm3 (4.2-5.4); White Blood Count 10.8 K/mm3 (4.4-11.0)
[2023-07-03 06:34] LABS: Anion Gap 3 (5-15); BUN 24 mg/dL (7-18); Calcium,Total 9.2 mg/dL (8.5-10.1); Chloride 105 mmol/L (98-107); Creatinine, Serum 0.52 mg/dL (0.55-1.02); EST Glomerular Filtration Rate 129 mL/min (>60); Est Glom Filt Rate - Afr Amer 157 mL/min (>60); Glucose 103 mg/dL (74-106); Potassium 4.7 mmol/L (3.5-5.1); Sodium Level 141 mmol/L (136-145)
--- NOTE | 2023-07-03 07:32 | DS.PCM_ITS ---
Providers Date of Admission: 06/27/23 Date of Discharge: 07/03/23 Primary Care Physician: Dr. Memo Chairez MD Consultations 06/25/23 17:33 Consult: Orthopedics Routine Consulting Provider: Kendall Skinner Reason for Consult: recent cervical surgery, pain and weakness EMERGENT Consult: No MD Notified: Yes Date Notified: 06/25/23 Time Notified: 17:12 Method of Notification: Verbal Reason For Visit: GENERALIZED WEAKNESS Diagnosis Discharge Diagnosis (1) Generalized weakness: Status: Acute Code(s): R53.1 - Weakness (2) S/P cervical spinal fusion: Status: Acute Code(s): Z98.1 - Arthrodesis status Plan Patient is a 53-year-old lady with recent C3-5 anterior cervical discectomy and fusion with plate instrumentation by Dr. eKndall Skinner on 05/18/2023, recent hospitalization from 06/17/2023 to 06/21/2023 who presented with progressive generalized weakness in arms and legs 1. Physical deconditioning in the context of recent C3-C5 cervical discectomy with fusion. Patient admitted to regular nursing floor. Cervical x-ray obtained on admission demonstrated stable cervical fusion.- Requested for PT OT eval and social insurance analyst to assist with discharge planning. Consult was also placed to patient spine surgeon. Case was discussed with patient spine surgeon recommended initiation of steroids ? 06/27/2023 ; Case was discussed with Dr. Skinner plan is for patient to undergo repeat imaging studies with MRI of the cervical spine ? 06/28/2023;Patient's MRI obtained as part of her evaluation did show worsening of now severe central canal stenosis at C3-C4 disc space level due to posterior midline disc protrusion displaced by disc implant in front of the disc protrusion. This is causing spinal cord compression with intramedullary high signal intensity worrisome for cord contusion. Patient subsequently underwent C3-C5 posterior decompression laminectomy, posterior spinal instrumented fusion by Dr. Kendall Skinner on 06/27/2023 ? 06/30/2023 pain remains well-controlled. ?07/01/2023 patient was transitioned from IV pain medication to p.o. pain medication which she is tolerated well so 2. Acute kidney injury ? Secondary to dehydration patient be managed with IV fluid with subsequent monitoring of electrolytes ordered ? 06/30/2023 resolved 3. COPD ? Currently not in exacerbation aerosol treatment as needed 4. Chronic pain ? Continued with current pain regimen 5. Hypothyroidism - Patient is on levothyroxine home dose continued 6. Hypertension - Blood pressure controlled, home medications continued with dose adjustment as needed 7. GERD ? On PPI 8. Psychiatric disorder NOS -Continue home psychotropic medications 9. Tobacco dependence - Counseled on cessation, offered nicotine patch for tobacco cravings 10. DVT prophylaxis ? Bilateral SCDs for now 11. Physical deconditioning - Requested for PT OT eval and social insurance analyst to assist with discharge planning Time spent in the patient's overall evaluation,decision-making process, review of diagnostic data, adjustment of management, discussion with other providers, nursing nursing and ancillary staff involved in patient's care documentation,35 minutes Medications at Discharge Home Medications bupropion HCl 150 mg tablet,12 hr sustained-release (Wellbutrin SR) 300 mg PO DAILY depression 04/30/21 ferrous sulfate 325 mg (65 mg iron) tablet 325 mg PO BID supplement 04/30/21 levothyroxine 25 mcg tablet 25 mcg PO DAILY hypothyroid 04/30/21 tiotropium bromide 2.5 mcg/actuation mist for inhalation (Spiriva Respimat) 2 pu ff inhalation DAILY COPD 04/30/21 albuterol sulfate 2.5 mg/3 mL (0.083 %) solution for nebulization 2.5 mg inhalation Q6H PRN PRN Shortness Of Breath Or Wheezing 10/12/21 albuterol sulfate 90 mcg/actuation aerosol inhaler (Ventolin HFA) 1 puff inhalation Q4H PRN PRN Shortness Of Breath Or Wheezing 10/12/21 cholecalciferol (vitamin D3) 25 mcg (1,000 unit) capsule (Vitamin D3) 25 mcg PO DAILY vitamin 10/12/21 atorvastatin 40 mg tablet 40 mg PO QHS cholesterol 02/03/22 omeprazole 20 mg capsule,delayed release 20 mg PO DAILY reflux 03/25/22 baclofen 10 mg tablet 5 mg (1/2 x 10 mg) PO BID pain #30 tabs 05/06/22 cyanocobalamin (vitamin B-12) 1,000 mcg tablet (Vitamin B-12) 1,000 mcg PO DAILY supplement 07/27/22 mirabegron 25 mg tablet,extended release 24 hr (Myrbetriq) 25 mg PO DAILY OVE RACTIVE BLADDER 07/27/22 olanzapine 10 mg tablet 10 mg PO DAILY MOOD 10/28/22 oxybutynin chloride 10 mg tablet,extended release 24 hr 10 mg PO DAILY OVERACTIVE BLADDER 10/28/22 trazodone 150 mg tablet 150 mg PO QHS SLEEP 10/28/22 amlodipine 10 mg tablet 10 mg PO DAILY bp #30 tabs 12/29/22 metoprolol succinate 50 mg tablet,extended release 24 hr 50 mg PO DAILY bp 05/15/23 budesonide 0.5 mg/2 mL suspension for nebulization 0.5 mg (2 mL) inhalation Q12H.RT #0 mL 05/23/23 nut.tx.comp. immune systm,reg 0.08 gram-1.4 kcal/mL oral liquid (Ensure Surgery) 237 ml PO TIDCM #0 mL 05/23/23 pregabalin 150 mg capsule (Lyrica) 150 mg PO TID pain 3 days #9 caps 05/23/23 acetaminophen 500 mg tablet 1,000 mg (2 x 500 mg) PO Q8 #0 tabs 06/21/23 meloxicam 15 mg tablet 7.5 mg (1/2 x 15 mg) PO DAILY 30 days #15 tabs 06/21/23 polyethylene glycol 3350 17 gram oral powder packet 17 g PO BID #0 ea 06/21/23 melatonin 3 mg tablet 3 mg PO QHS PRN PRN Insomnia #0 tabs 07/03/23 nicotine 14 mg/24 hr daily transdermal patch 14 mg transdermal DAILY #0 ea 07/03/23 oxycodone 5 mg tablet 5 - 10 mg (1 - 2 x 5 mg) PO Q4H PRN PRN Pain Score 4-10 3 days #10 tabs 07/03/23 sennosides 8.6 mg-docusate sodium 50 mg tablet (Stool Softener-Stimulant Laxative) 2 tab PO BID PRN PRN Constipation #0 tabs 07/03/23 Hospital Course Summary of Care Provided Minutes Spent on Discharge: 35 Physical Exam Narrative GENERAL: cooperative HEENT: Neck immobilized EYES; Anicteric, Normal Conjunctiva NECK; supple, normal thyroid, RESPIRATORY: Diminished to auscultation CARDIOVASCULAR: Regular S1 S2, GI: soft, normoactive bowel sounds, : No Renal angle tenderness; EXTREMITIES: No edema, no clubbing, MUSCULOSKELETAL: no muscle wasting NEURO: Awake; no lateralizing signs. SKIN: No Rash PSYCH; Flat affect Weight / BMI Weight Weight: 86.2 kg Body Mass Index (BMI) 29.8 ABG / Lab / Microbiology Data 07/03/23 05:33 07/03/23 05:33 Laboratory: Laboratory Results - last 24 hr 07/02/23 06:55: Sodium 141, Potassium 4.4, Chloride 105, Carbon Dioxide 30.0, Anion Gap 6, BUN 24 H, Creatinine 0.52 L, Estim Creat Clear Calc 135.20, Est GFR (MDRD) Af Amer 157, Est GFR (MDRD) Non-Af 130, BUN/Creatinine Ratio 46.2 H, Gluc ose 115 H, Calcium 8.7 07/03/23 05:33: WBC 10.8, RBC 3.81 L, Hgb 11.0 L, Hct 35.3 L, MCV 92.7, MCH 28.9, MCHC 31.2 L, RDW Std Deviation 43.9, RDW Coeff of Sandeep 13.0, Plt Count 323, MPV 10.7, Immature Gran % (Auto) 2.200 H, Neut % (Auto) 59.1, Lymph % (Auto) 22.2, [place] % (Auto) 10.7 H, Eos % (Auto) 4.8, Baso % (Auto) 1.0, Absolute Neuts (auto) 6.4, Absolute Lymphs (auto) 2.40, Nucleated RBC % 0, Sodium 141, Potassium 4.7, Chloride 105, Carbon Dioxide 33.0 H, Anion Gap 3 L, BUN 24 H, Creatinine 0.52 L, Estim Creat Clear Calc 135.20, Est GFR (MDRD) Af Amer 157, Est GFR (MDRD) Non-Af 129, BUN/Creatinine Ratio 46.0 H, Glucose 103, Calcium 9.2 D/C Instructions Discharge Diet: No restrictions Discharge Activity: Return to Normal Activity Call your doctor if you observe: Fever of 101 or Higher, Shortness of breath, Fainting spells and Chest pain Meaningful Use Info Meaningful Use Diagnoses (Choose all that apply): None applicable Discharge Plan Admission Admit Date/Time: 06/27/23 14:11 Attending Provider: Terrence Avila Primary Care Provider: Memo Chairez Consulting Providers: Kendall Skinner; Virginia Araujo Discharge Orders/Prescriptions Prescriptions: New sennosides-docusate sodium [Stool Softener-Stimulant Laxat] 8.6-50 mg Tablet 2 tab PO BID PRN PRN (Reason: Constipation) Qty: 0 0RF oxycodone 5 mg Tablet 5 - 10 mg PO Q4H PRN PRN (Reason: Pain Score 4-10) 3 Days Qty: 10 0RF nicotine 14 mg/24 hr Patch 24 Hour 14 mg transdermal DAILY Qty: 0 0RF melatonin 3 mg Tablet 3 mg PO QHS PRN PRN (Reason: Insomnia) Qty: 0 0RF Continued omeprazole 20 mg capsule,delayed release(DR/EC) 20 mg PO DAILY cyanocobalamin (vitamin B-12) [Vitamin B-12] 1,000 mcg tablet 1,000 mcg PO DAILY Myrbetriq 25 mg tablet extended release 24 hr 25 mg PO DAILY trazodone 150 mg tablet 150 mg PO QHS olanzapine 10 mg tablet 10 mg PO DAILY oxybutynin chloride 10 mg tablet extended release 24hr 10 mg PO DAILY bupropion HCl [Wellbutrin SR] 150 mg Tablet Sustained-Release 12 Hr 300 mg PO DAILY levothyroxine 25 mcg Tablet 25 mcg PO DAILY ferrous sulfate 325 mg (65 mg iron) Tablet 325 mg PO BID Spiriva Respimat 2.5 mcg/actuation Mist 2 puff INHALATION DAILY atorvastatin 40 mg tablet 40 mg PO QHS cholecalciferol (vitamin D3) [Vitamin D3] 25 mcg (1,000 unit) Capsule 25 mcg PO DAILY albuterol sulfate 2.5 mg /3 mL (0.083 %) solution for nebulization 2.5 mg inhalation Q6H PRN PRN (Reason: Shortness Of Breath Or Wheezing) albuterol sulfate [Ventolin HFA] 90 mcg/actuation HFA aerosol inhaler 1 puff INHALATION Q4H PRN PRN (Reason: Shortness Of Breath Or Wheezing) baclofen 10 mg Tablet 5 mg PO BID Qty: 30 0RF amlodipine 10 mg tablet 10 mg PO DAILY Qty: 30 0RF polyethylene glycol 3350 17 gram Powder In Packet 17 g PO BID Qty: 0 0RF meloxicam 15 mg Tablet 7.5 mg PO DAILY 30 Days Qty: 15 0RF Rx Instructions: 7.5 mg once daily for 1 week and then as needed. acetaminophen 500 mg Tablet 1,000 mg PO Q8 Qty: 0 0RF Rx Instructions: 1 g every 8 hourly for 1 week and then q. 8 hourly as needed for moderate to severe pain metoprolol succinate 50 mg tablet extended release 24 hr 50 mg PO DAILY budesonide 0.5 mg/2 mL Suspension For Nebulization 0.5 mg inhalation Q12H.RT Qty: 0 0RF Ensure Surgery 0.08-1.4 gram-kcal/mL Liquid 237 ml PO TIDCM Qty: 0 0RF pregabalin [Lyrica] 150 mg capsule 150 mg PO TID 3 Days Qty: 9 0RF Referrals / Follow Up: Kendall Skinner MD [Med Staff - Active Staff] - Within 2 Weeks Memo Chairez MD [Primary Care Provider] - Within 2 Weeks Disposition Disposition (needs filled in before D/C Order can be placed): Alf Facility Charges/Coding Visit Charges Inpatient E&M: 36590 Disch Hosp >30min
--- NOTE | 2023-07-03 08:45 | NURSING ---
discharge information [facility]ed to [facility]. filler picker time 10:00. primary RN aware
[2023-07-03 09:02] VITALS: BP 128/91; PULSE 80; RESP 20; TEMP 37.3; O2SAT 94
[2023-07-03] MEDS: Baclofen 10 MG Tablet 5 MG PO (09:04)
[2023-07-03 09:05] VITALS: PULSE 80
[2023-07-03] MEDS: Vibegron 75 MG TABLET PO (09:05)
[2023-07-03] MEDS: Pantoprazole Sodium 20 MG Tablet PO (09:05)
[2023-07-03] MEDS: amLODIPine 10 MG Tablet PO (09:05)
[2023-07-03] MEDS: Metoprolol(XL)Succ 50 MG Tablet PO (09:05)
[2023-07-03] MEDS: Meloxicam 15 MG Tablet PO (09:06)
[2023-07-03] MEDS: OLANZapine 10 MG Tablet PO (09:06)
[2023-07-03] MEDS: buPROPion (XL) 300 MG TABLET.XL PO (09:07)
[2023-07-03] MEDS: Senna/Docusate Sodium 1 Tablet 2 TABLET PO (09:13)
--- NOTE | 2023-07-03 09:36 | NURSING ---
Report called to Bharti Marks at [facility].
[2023-07-03 10:30] VITALS: TEMP 37.2
== END 2023-07-03 10:41 | DRG 310 ==
LOC: ED 16:21 → MS3 16:44
PROVIDERS: Orthopaedic Surgery Orthopaedic Surgery of the Spine; Physician Assistant; Admitting Provider Internal Medicine; Emergency Provider Emergency Medicine; PCP Family Medicine; Visit Provider Internal Medicine
PROC: 01N10ZZ Release Cervical Nerve, Open Approach (ICD-10-PCS; principal; 2023-06-27 10:15)
DX: M48.02 Spinal stenosis, cervical region (principal); S12.200A Unspecified displaced fracture of third cervical vertebra, initial encounter for closed fracture; G99.2 Myelopathy in diseases classified elsewhere; N17.9 Acute kidney failure, unspecified; F31.9 Bipolar disorder, unspecified; J44.9 Chronic obstructive pulmonary disease, unspecified; G95.20 Unspecified cord compression; D64.9 Anemia, unspecified; E03.9 Hypothyroidism, unspecified; I10 Essential (primary) hypertension; G47.30 Sleep apnea, unspecified; E78.00 Pure hypercholesterolemia, unspecified; F12.90 Cannabis use, unspecified, uncomplicated; K21.9 Gastro-esophageal reflux disease without esophagitis; F17.200 Nicotine dependence, unspecified, uncomplicated; W19.XXXA Unspecified fall, initial encounter; R62.7 Adult failure to thrive; Z79.51 Long term (current) use of inhaled steroids; G89.29 Other chronic pain; R53.1 Weakness; Z98.1 Arthrodesis status; Z68.29 Body mass index [BMI] 29.0-29.9, adult
CPT/HCPCS: 36415; 72040; 72141; 76000; 80048; 80053; 81001; 83735; 84100; 85025; 94640; 94668; 94762; 97110; 97116; 97162; 97166; 97530; 97535; 99284; 99406; C1713; J7030; J7120; 90686; A4216; J2405

== ENCOUNTER 2023-08-12 17:12 | Observation (INO) | payer MEDICAID, SELFPAY ==
[2023-08-12] VITALS (8 sets, daily range): BP systolic 114–151; BP diastolic 71–92; PULSE 79–87; RESP 16–20; TEMP 36.3–36.8; O2SAT 92–99; BMI 32.0; BMI 31.8
--- NOTE | 2023-08-12 17:44 | EDS_ITS ---
HPI History of Present Illness Chief Complaint: Back Informant: patient Narrative Narrative: Patient presents via EMS secondary to back pain with radiation down her left leg. Pain has been ongoing for quite some time. She is 6 weeks post cervical fusion with Dr. Chance. She actually saw Dr. Chance in the office this afternoon. Her neck is healing well but she continues to complain of low back pain. He reviewed her MRI from October 2022 at the visit and plan is to refer her to pain management. Patient states that she had been on Percocet which was helping but she is currently out of medication. She states she came by EMS today because her pain was so bad she could not put any weight on her leg. Nursing notes do document the patient has been having trouble with bladder control. When I asked her specifically she states that she senses that she needs to go the bathroom but cannot physically get there fast enough because of the pain in her back and leg. [facility] Medical History (Updated 08/12/23 @ 21:[address] Lisandra Flores MD) Acute cholecystitis Acute hyponatremia Acute pancreatitis Alcohol abuse Alcohol withdrawal Ambulates with cane Anemia Anxiety Arthritis Bipolar disorder Cervical spine pain Chronic pain Closed C3 fracture COPD (chronic obstructive pulmonary disease) Depression Desire for detoxification Distal radius fracture, right Easy bruising Elevated LFTs Excessive bleeding Gastric reflux High cholesterol History of edema Hyperglycemia Hypertension Hypothyroidism Marijuana use Migraines On home oxygen therapy Osteoporosis Pulmonary embolism Recurrent syncope Renal insufficiency Restless legs Shortness of breath on exertion Sleep apnea Smoker Transient hypotension Walker as ambulation aid Wears glasses Home Medications bupropion HCl 150 mg tablet,12 hr sustained-release (Wellbutrin SR) 300 mg PO DAILY depression 04/30/21 [History Last Taken 06/16/23] ferrous sulfate 325 mg (65 mg iron) tablet 325 mg PO BID supplement 04/30/21 [History Last Taken 06/16/23] levothyroxine 25 mcg tablet 25 mcg PO DAILY hypothyroid 04/30/21 [History Last Taken 06/16/23] tiotropium bromide 2.5 mcg/actuation mist for inhalation (Spiriva Respimat) 2 puff inhalation DAILY COPD 04/30/21 [History Last Taken 06/16/23] albuterol sulfate 2.5 mg/3 mL (0.083 %) solution for nebulization 2.5 mg inhalation Q6H PRN PRN Shortness Of Breath Or Wheezing 10/12/21 [History Last Taken 06/16/23] albuterol sulfate 90 mcg/actuation aerosol inhaler (Ventolin HFA) 1 puff inhalation Q4H PRN PRN Shortness Of Breath Or Wheezing 10/12/21 [History Last Taken 05/14/23 10:00 1 puff] cholecalciferol (vitamin D3) 25 mcg (1,000 unit) capsule (Vitamin D3) 25 mcg PO DAILY vitamin 10/12/21 [History Last Taken 06/16/23] atorvastatin 40 mg tablet 40 mg PO QHS cholesterol 02/03/22 [History Last Taken 06/16/23] omeprazole 20 mg capsule,delayed release 20 mg PO DAILY reflux 03/25/22 [History Last Taken 06/16/23] baclofen 10 mg tablet 5 mg (1/2 x 10 mg) PO BID pain #30 tabs 05/06/22 [Rx Last Taken 06/16/23] cyanocobalamin (vitamin B-12) 1,000 mcg tablet (Vitamin B-12) 1,000 mcg PO DAILY supplement 07/27/22 [History Last Taken 06/16/23] mirabegron 25 mg tablet,extended release 24 hr (Myrbetriq) 25 mg PO DAILY OVERACTIVE BLADDER 07/27/22 [History Last Taken 06/16/23] olanzapine 10 mg tablet 10 mg PO DAILY MOOD 10/28/22 [History Last Taken 06/16/23] oxybutynin chloride 10 mg tablet,extended release 24 hr 10 mg PO DAILY OVERACTIVE BLADDER 10/28/22 [History Last Taken 06/16/23] trazodone 150 mg tablet 150 mg PO QHS SLEEP 10/28/22 [History Last Taken 06/16/23] amlodipine 10 mg tablet 10 mg PO DAILY bp #30 tabs 12/29/22 [Rx Last Taken 06/16/23] metoprolol succinate 50 mg tablet,extended release 24 hr 50 mg PO DAILY bp 05/15/23 [History Last Taken 06/16/23] budesonide 0.5 mg/2 mL suspension for nebulization 0.5 mg (2 mL) inhalation Q12H.RT #0 mL 05/23/23 [Rx Last Taken 06/16/23] nut.tx.comp. immune systm,reg 0.08 gram-1.4 kcal/mL oral liquid (Ensure Surgery) 237 ml PO TIDCM #0 mL 05/23/23 [Rx Last Taken 06/08/23] pregabalin 150 mg capsule (Lyrica) 150 mg PO TID pain 3 days #9 caps 05/23/23 [Rx Last Taken 06/16/23] acetaminophen 500 mg tablet 1,000 mg (2 x 500 mg) PO Q8 #0 tabs 06/21/23 [Rx Last Taken Unknown] meloxicam 15 mg tablet 7.5 mg (1/2 x 15 mg) PO DAILY 30 days #15 tabs 06/21/23 [Rx Last Taken Unknown] polyethylene glycol 3350 17 gram oral powder packet 17 g PO BID #0 ea 06/21/23 [Rx Last Taken Unknown] melatonin 3 mg tablet 3 mg PO QHS PRN PRN Insomnia #0 tabs 07/03/23 [Rx Last Taken Unknown] nicotine 14 mg/24 hr daily transdermal patch 14 mg transdermal DAILY #0 ea 07/03/23 [Rx Last Taken Unknown] oxycodone 5 mg tablet 5 - 10 mg (1 - 2 x 5 mg) PO Q4H PRN PRN Pain Score 4-10 3 days #10 tabs 07/03/23 [Rx Last Taken Unknown] sennosides 8.6 mg-docusate sodium 50 mg tablet (Stool Softener-Stimulant Laxative) 2 tab PO BID PRN PRN Constipation #0 tabs 07/03/23 [Rx Last Taken Unknown] Allergy/AdvReac Type Severity Reaction Status Date / Time fentanyl Allergy Anaphylaxis Verified 08/12/23 13:58 varenicline [From Chantix] AdvReac hallucinati Verified 08/12/23 13:58 ons Family History Other Cancer Surgical History H/O skin graft H/O: hysterectomy Hx of cholecystectomy Hx of tonsillectomy Social History household members: none Smoking Status: Light Smoker (<10/day) alcohol intake: former substance use type: marijuana additional social history: disabled ROS ROS ED Constitutional Constitutional ED: Denies chills or fever(s) Eyes Eyes: Denies discharge from eye(s) ENT ENT ED: Denies discharge from eye(s), rhinorrhea or sore throat Cardiovascular Cardiovascular: Denies chest pain or palpitations Respiratory/Chest Respiratory/Chest: Denies cough or dyspnea Gastrointestinal Gastrointestinal: Denies abdominal pain, nausea or vomiting Genitourinary Genitourinary ED: Denies dysuria Musculoskeletal Musculoskeletal: Reports back pain; Denies extremity pain Integumentary Denies Abrasions or rash Neurologic Neurologic: Denies headache(s) or weakness Psychiatric Psychiatric: Reports anxiety; Denies depression Allergic/Immunologic Allergic/Immunologic ED: Denies lip swelling or urticaria EXAM Physical Exam Const Vital Signs: 08/12/23 17:13 08/12/23 18:28 08/12/23 20:00 Temperature 97.4 F L Temperature Source Temporal Pulse Rate 79 87 Respiratory Rate 20 H 16 Blood Pressure 131/82 H 117/84 H 119/82 H Blood Pressure Mean 98 95 94 Pulse Ox 96 99 Oxygen Delivery Method Room Air Room Air Positive well nourished and well developed General Appearance ED: well developed HEENT Reports moist mucous membranes Eyes EOMs intact bilaterally Resp normal respiratory effort and clear to auscultation bilaterally Cardio regular rate and regular rhythm GI soft to palpation and non-tender Extremity Extremity Narrative: Good strength and sensation in the lower extremities. Strong distal pulses. Neuro oriented x3 Neuro Narrative: No focal neurologic deficit. Skin no rashes or lesions noted MDM MDM MDM Narrative Medical decision making narrative: IV line established. Patient given morphine and Zofran along with a dose of steroids to help control inflammation. Lab Data Labs: Laboratory Results - last 24 hr 08/12/23 17:57 WBC 8.0 RBC 4.75 Hgb 14.0 Hct 43.0 MCV 90.5 MCH 29.5 MCHC 32.6 RDW Std Deviation 45.6 H RDW Coeff of Sandeep 13.6 Plt Count 254 MPV 11.8 Immature Gran % (Auto) 0.600 Neut % (Auto) 61.3 Lymph % (Auto) 24.6 [place] % (Auto) 8.8 Eos % (Auto) 3.9 Baso % (Auto) 0.8 Absolute Neuts (auto) 4.9 Absolute Lymphs (auto) 1.96 Nucleated RBC % 0 Sodium 137 Potassium 3.5 Chloride 104 Carbon Dioxide 28.0 Anion Gap 5 BUN 15 Creatinine 0.68 Estim Creat Clear Calc 105.63 Est GFR (MDRD) Af Amer 116 Est GFR (MDRD) Non-Af 96 BUN/Creatinine Ratio 22.1 H Glucose 93 Calcium 9.3 Radiography Diagnostic Testing: Clinical Impression(s) from Imaging Studies Lumbar Spine CT 08/12/23 19:39 IMPRESSION: Mild levoscoliosis with degenerative disc disease as described above. Electronically Signed: Km Esquivel MD at 21:00 EST , Treatment and Re-Evaluation Narrative: On repeat evaluation patient states her pain does seem to be improved while lying at rest. Her family is requesting she be admitted as she is having difficulty getting around at home. Patient states that she has been in physical therapy because of her neck and was just discharged from therapy. We agreed that we would try to get up and walk with a walker to see how she does. Nursing staff states she really was only able to take a step or 2 and no further. At this time lab work will be obtained and a CT scan of the lumbar spine will be ordered. Clinically I do not have concern for cauda equina. Patient will require hospital admission for pain control and further evaluation. CBC and chemistry studies are unremarkable. Lumbar spine CT reveals scoliosis with degenerative disc disease. Patient updated on findings I will speak with hospitalist regarding admission. Discharge Plan Triage Chief Complaint: Back ED Provider: Lisandra Flores Dx/Rx/DC Orders Clinical Impression: Intractable back pain, Difficulty in walking Prescriptions: No Action omeprazole 20 mg capsule,delayed release(DR/EC) 20 mg PO DAILY cyanocobalamin (vitamin B-12) [Vitamin B-12] 1,000 mcg tablet 1,000 mcg PO DAILY Myrbetriq 25 mg tablet extended release 24 hr 25 mg PO DAILY trazodone 150 mg tablet 150 mg PO QHS olanzapine 10 mg tablet 10 mg PO DAILY oxybutynin chloride 10 mg tablet extended release 24hr 10 mg PO DAILY bupropion HCl [Wellbutrin SR] 150 mg Tablet Sustained-Release 12 Hr 300 mg PO DAILY levothyroxine 25 mcg Tablet 25 mcg PO DAILY ferrous sulfate 325 mg (65 mg iron) Tablet 325 mg PO BID Spiriva Respimat 2.5 mcg/actuation Mist 2 puff INHALATION DAILY atorvastatin 40 mg tablet 40 mg PO QHS cholecalciferol (vitamin D3) [Vitamin D3] 25 mcg (1,000 unit) Capsule 25 mcg PO DAILY albuterol sulfate 2.5 mg /3 mL (0.083 %) solution for nebulization 2.5 mg inhalation Q6H PRN PRN (Reason: Shortness Of Breath Or Wheezing) albuterol sulfate [Ventolin HFA] 90 mcg/actuation HFA aerosol inhaler 1 puff INHALATION Q4H PRN PRN (Reason: Shortness Of Breath Or Wheezing) baclofen 10 mg Tablet 5 mg PO BID Qty: 30 0RF amlodipine 10 mg tablet 10 mg PO DAILY Qty: 30 0RF polyethylene glycol 3350 17 gram Powder In Packet 17 g PO BID Qty: 0 0RF meloxicam 15 mg Tablet 7.5 mg PO DAILY 30 Days Qty: 15 0RF Rx Instructions: 7.5 mg once daily for 1 week and then as needed. acetaminophen 500 mg Tablet 1,000 mg PO Q8 Qty: 0 0RF Rx Instructions: 1 g every 8 hourly for 1 week and then q. 8 hourly as needed for moderate to severe pain metoprolol succinate 50 mg tablet extended release 24 hr 50 mg PO DAILY budesonide 0.5 mg/2 mL Suspension For Nebulization 0.5 mg inhalation Q12H.RT Qty: 0 0RF Ensure Surgery 0.08-1.4 gram-kcal/mL Liquid 237 ml PO TIDCM Qty: 0 0RF pregabalin [Lyrica] 150 mg capsule 150 mg PO TID 3 Days Qty: 9 0RF sennosides-docusate sodium [Stool Softener-Stimulant Laxat] 8.6-50 mg Tablet 2 tab PO BID PRN PRN (Reason: Constipation) Qty: 0 0RF oxycodone 5 mg Tablet 5 - 10 mg PO Q4H PRN PRN (Reason: Pain Score 4-10) 3 Days Qty: 10 0RF nicotine 14 mg/24 hr Patch 24 Hour 14 mg transdermal DAILY Qty: 0 0RF melatonin 3 mg Tablet 3 mg PO QHS PRN PRN (Reason: Insomnia) Qty: 0 0RF Primary Care Provider: Memo Chairez Referrals: Memo Chairez MD [Primary Care Provider] - Disposition Disposition: Acute Care Hospital [facility]
[2023-08-12] MEDS: MethylPREDNISolone 125 MG/2 ML Vial IV (18:21)
[2023-08-12] MEDS: Morphine 4 MG/ML Syringe IV ×2 (18:21→19:47)
[2023-08-12] MEDS: Ondansetron 4 MG/2 ML Vial IV (18:21)
--- OUTSIDE RECORDS SUMMARY | 2023-08-12 19:13 | XMS RPT_ITS ---
Author Name Auto Generated Organization OHIP Care Team Providers Care Adult Specialist Name Role Phone Jaimee PALOMARES Attending Unavailable Jaimee PALOMARES Primary Care Unavailable PALOMARESJaimee BARBA Primary Care Unavailable JENIFER YEAGER Attending Unavailable Jaimee PALOMARES Primary Care Unavailable Jaimee PALOMARES Attending Unavailable Jaimee PALOMARES Primary Care Unavailable Jaimee PALOMARES Attending Unavailable SELF Referring Unavailable MARVIN LEAVITT Attending Unavailable PALOMARES, Jaimee BOLANOS Primary Care Unavailable PALOMARES, M CICI Primary Care Unavailable YOEL HUGHESEN Referring Unavailable JENIFER YEAGER Referring Unavailable CARMELITA RAGSDALE Attending Unavailable Jaimee PALOMARES Primary Care Unavailable Jaimee PALOMARES Attending Unavailable Jaimee PALOMARES Primary Care Unavailable PALOMARES, Jaimee BOLANOS Primary Care Unavailable Jaimee PALOMARES Referring Unavailable URVASHI HUGHES Attending Unavailable BRODY M CICI Primary Care Unavailable PALOMARESJaimee BARBA Primary Care Unavailable Jaimee PALOMARES Attending Unavailable BRODY M CICI Primary Care Unavailable YOEL HUGHESEN Referring Unavailable BRODY M CICI Referring Unavailable IBETH ALBERT Attending Unavailable Jaimee PALOMARES Primary Care Unavailable JENIFER YEAGER Referring Unavailable Jaimee PALOMARES Primary Care Unavailable FLO MARTINO Attending Unavailab Jaimee Francois Primary Care Unavailable LILIAM ROWELL Attending Unavailable Jaimee PALOMARES Primary Care Unavailable MEMO LEAHY JR Referring Unavailable PALOMARESJaimee BARBA Primary Care Unavailable URVASHI HUGHES Attending Unavailable MEMO HUBER Referring Unavailable Jaimee PALOMARES Primary Care Unavailable EMMO HUBER Referring Unavailable Jaimee PALOMARES Primary Care Unavailable Jaimee PALOMARES Attending Unavailable Jaimee PALOMARESORY Primary Care Unavailable PHYSICIAN, NONE Attending Unavailable PHYSICIAN, NONE Primary Care Unavailable DELORIS TROY Attending Unavailable DELORIS TROY Referring Unavailable Jaimee PALOMARES Primary Care Unavailable ANAY ESTEBAN Attending Unavailable IBETH ALBERT Referring Unavailable Jaimee PALOMARES Primary Care Unavailable IBETH ALBERT Referring Unavailable Jaimee PALOMARES Primary Care Unavailable PROBLEMS DATE TYPE CONDITION / CODE ATTENDING STATUS [facility] 05/02/2014 Active Primary hyperten merritt / I10(ICD-10) LILIAM ROWLEL Active [facility] 06/08/2023 Active Neck pain / M54.2(ICD-10) LILIAM ROWELL Active [facility] 06/08/2023 Active Arthrodesis stat us / Z98.1(ICD-10) NATALIIA LILIAM Active [facility] 05/10/2023 Active Weakness of both hands / R29.898(ICD-10) FLO MARTINO Active [facility] 05/10/2023 Active Numbness and tin gling in both hands / R20.0(ICD-10) FLO MARTINO Active [facility] 05/10/2023 Active Numbness and tin gling in both hands / R20.2(ICD-10) FLO MARTINO Active [facility] 05/10/2023 Active Complaining of c old hands / R20.8(ICD-10) FLO MARTINO Active [facility] 02/16/2023 Active Lumbar radiculop athy / M54.16(ICD-10) ANAY ESTEBAN Active [facility] 02/14/2023 Active Mastodynia of le ft breast / N64.4(ICD-10) CARMELITA RAGSDALE Active [facility] 02/14/2023 Active Dense breast tis ad / R92.2(ICD-10) CARMELITA RAGSDALE Active [facility] 02/11/2023 Active Cognitive impair ment / R41.89(ICD-10) NA Active [facility] 02/11/2023 Active Hallucinations / R44.3(ICD-10) NA Active [facility] 02/09/2023 Active Primary osteoart hritis of right hip / M16.11(ICD-10) IBETH ALBERT Active [facility] 01/26/2023 Active Transient cerebr al ischemia, unspecified type / G45.9(ICD-10) NA Active [facility] 01/26/2023 Active Balance problem / R26.89(ICD-10) NA Active [facility] 01/26/2023 Active Falls frequently / R29.6(ICD-10) NA Active [facility] 12/16/2022 Active Alcohol abuse, i n remission / F10.11(ICD-10) URVASHI HUGHES Active [facility] 12/16/2022 Active Polysubstance ab use (HCC) / F19.10(ICD-10) URVASHI HUGHES Active [facility] 12/16/2022 Active Polypharmacy / Z79.899(ICD-10) URVASHI HUGHES Active [facility] 10/20/2022 Active Weight loss / R63.4(ICD-10) NA Active [facility] 04/21/2022 Active Cervical spondyl osis without myelopathy / M47.812(ICD-10) EARENST ABERDEEN Active [facility] 10/14/2022 Active Spinal stenosis of lumbar region without neurogenic claudication / M48.061(ICD-10) [place] ABERDEEN Active [facility] 10/14/2022 Active Myofascial pain / M79.18(ICD-10) [place] [facility] 09/01/2022 Active Breast pain / N64.4(ICD-10) NA Active [facility] 02/27/2022 Active Cognitive impair ment, mild, so stated / G31.84(ICD-10) Jaimee PALOMARES Active [facility] 02/24/2022 Active Radiculopathy, l umbar region / M54.16(ICD-10) Jaimee PALOMARES Active [facility] 02/24/2022 Active Spinal stenosis, lumbar region, without neurogenic claudication / M48.061(ICD-10) Jaimee PALOMARES Active [facility] 11/23/2021 Active History of colon ic polyps / Z86.010(ICD-10) Jaimee PALOMARES Active [facility] 11/23/2021 Active Chronic active h epatitis C (HCC) / B18.2(ICD-10) Jaimee PALOMARES Active [facility] 02/26/2021 Active Lumbar spondylos is / M47.816(ICD-10) Jaimee PALOMARES Active [facility] 10/30/2020 Active Alcohol abuse / F10.10(ICD-10) Jaimee PALOMARES Active [facility] 03/13/2018 Active COPD (chronic obstructive pulmonary disease) with chronic bronchitis ([facility]) / J44.9(ICD-10) Jaimee PALOMARES Active [facility] 08/12/2017 Active Delusional disor phil ([facility]) / F22(ICD-10) Jaimee PALOMARES Active [facility] 10/28/2016 Active Stasis edema of both lower extremities / I87.303(ICD-10) Jaimee PALOMARES Active [facility] 09/30/2016 Active Centrilobular em physema ([facility]) / J43.2(ICD-10) Jaimee PALOMARES Active [facility] 07/14/2016 Active Hyperglycemia / R73.9(ICD-10) Jaimee PALOMARES Active [facility] 06/28/2016 Active Hx pulmonary emb olism / Z86.711(ICD-10) Jaimee PALOMARES Active [facility] 04/21/2016 Active Chronic midline low back pain with left-sided sciatica / M54.42(ICD-10) Jaimee PALOMARES Active [facility] 04/21/2016 Active Chronic midline low back pain with left-sided sciatica / G89.29(ICD-10) Jaimee PALOMARES Active [facility] 06/03/2014 Active Gastroesophageal reflux disease without esophagitis / K21.9(ICD-10) Jaimee PALOMARES Active [facility] 03/28/2014 Active Tobacco use diso rder / F17.200(ICD-10) Jaimee PALOMARES Active [facility] PROCEDURES No Procedure Records Found RESULTS CNPN Observed: 08/11/2023 12:00 AM Status: COMPLETED Source: [facility] RE[facility] BRITTONMARILUZ ([id number]) 1970 F Date Time Provider Department 08/11/23 Jaimee PALOMARES [facility] During your visit today, we recorded the following information about you: James Huang LPN 08/11/2023 4:09 PM Signed Jaimee Palomares PA-C P [facility] Yuki Berrios Please have her come in for blood and urine testing as soon as possible r/t recent renal injury with stage 3a acute renal failure. Guera dosing at this stage can not exceed 300mg, she's on 450mg total daily. She can only take 150mg twice a day to prevent further renal damage until we have results back Thanks, ALEIDA Diane Tara, LPN 08/11/2023 4:09 PM Signed Spoke to patient and she verbalizes understanding of instructions. Allergies As of Date: 08/11/2023 Noted Allergy Reaction FENTANYL 08/22/2015 14 - Other: See Comments Comments: PATCH ONLY. Respiratory distress due to rapid absorption. CHANTIX (VARENICLINE) 09/30/2016 5 - Intolerance Comments: hallucinations Date Reviewed: 08/09/2023 Reviewed by: Estrella Lomeli LPN - Fully Assessed Reason for Visit: Patient Update [1234] Visit Diagnosis:Fibromyalgia [M79.7] Prescriptions as of 08/11/2023 - metoprolol succinate ER (TOPROL XL) 50 mg 24 hr tablet Take 1 tablet by mouth once daily. - cyanocobalamin (VITAMIN B-12) 1,000 mcg tab Take 1 tablet by mouth once daily. - ibuprofen (MOTRIN) 800 mg tablet Take 1 tablet by mouth every 8 hours as needed for pain. Take with food. - oxyCODONE-acetaminophen (PERCOCET) 5-325 mg tablet Take 1 tablet by mouth every 8 hours as needed for pain for up to 7 days. - omeprazole (PRILOSEC) 20 mg capsule Take 1 capsule by mouth once daily. - Cholecalciferol, Vitamin D3, (VITAMIN D) 25 mcg (1,000 unit) cap Take 1 capsule by mouth once daily. - baclofen 5 mg tablet Take 1 tablet by mouth two times a day. - tiotropium bromide (SPIRIVA RESPIMAT) 2.5 mcg/actuation inhaler Inhale 2 Puffs as instructed once daily. - budesonide-formoterol (SYMBICORT) 160-4.5 mcg/actuation inhaler Inhale 2 Puffs as instructed two times a day. - amLODIPine (NORVASC) 10 mg tablet Take 1 tablet by mouth once daily. - thiamine (VITAMIN B1) 100 mg tablet Take 1 tablet by mouth once daily. - mirabegron (MYRBETRIQ) 25 mg Tb24 Take 1 tablet by mouth once daily. - pregabalin (LYRICA) 150 mg capsule Take one pill three times per day - atorvastatin (LIPITOR) 40 mg tablet Take 1 tablet by mouth daily at bedtime. - ferrous sulfate 325 mg (65 mg iron) tablet Take 1 tablet by mouth two times a day. - L.acidophilus-L.rhamnosus (FLORAJEN WOMEN) 15 billion cell capsule Take 1 capsule by mouth once daily. - oxybutynin ER (DITROPAN XL) 10 mg 24 hr tablet TAKE 1 TABLET BY MOUTH DAILY - Blood Pressure Monitor 1 Each once daily. ICD 10 code I10 - Blood Pressure Test Kit-Medium kit 1 Each once daily. - OLANZapine (ZYPREXA) 5 mg tablet Take 1 tablet by mouth once daily. - buPROPion XL (WELLBUTRIN XL) 150 mg 24 hr tablet Take 1 tablet by mouth once daily. - traZODone (DESYREL) 150 mg tablet Take 1 tablet by mouth at bedtime as needed. - WALKER ROLLATOR SEAT WITH 6 WHEELS - RED For daily use. M54.40, G89.29 Chronic left-sided low back pain with sciatica, sciatica laterality unspecified (primary encounter diagnosis) M51.36 DDD (degenerative disc disease), lumbar M47.816 Lumbar spondylosis R26.81 Gait instability - albuterol HFA (VENTOLIN HFA) 90 mcg/actuation inhaler Inhale 2 Puffs as instructed every 4 hours as needed for wheezing/shortness of breath. - VITAMIN C 500 mg tablet - albuterol (PROVENTIL) 2.5 mg /3 mL (0.083 %) nebulizer solution Use 3 mL via nebulizer every 4 hours as needed for wheezing/shortness of breath. Use over 5-15minutes. - Nebulizers Use as directed. - levothyroxine (SYNTHROID) 25 mcg tablet Take 25 mcg by mouth daily before breakfast. - COMPOUNDED PRESCRIPTION Standard size Rollator Walker #1 Dx Large Blood Pressure Cuff #1 M51.36 DDD (degenerative disc disease), lumbar (primary encounter diagnosis) I10 Essential hypertension - COMPOUNDED PRESCRIPTION ADJUSTABLE CANE DX M51.36 Problem List As Of Date 08/11/2023 Noted Resolved Back pain [M54.9] DDD (degenerative disc disease), lumbar [M51.36] Emphysema of lung (HCC) [J43.9] Tobacco use disorder [F17.200] Hypertension [I10] GERD (gastroesophageal reflux disease) [K21.9] Carpal tunnel syndrome, bilateral [G56.03] 09/23/2015 Obesity [E66.9] Anemia [D64.9] 11/04/2015 Radiculopathy, lumbar region [M54.16] 11/05/2015 Alcohol abuse [F10.10] Chronic midline low back pain with left-sided s*04/21/2016 PE (pulmonary thromboembolism) (HCC) [I26.99] Hyperglycemia [R73.9] 07/14/2016 Stasis edema [I87.309] 07/28/2016 Right lumbar radiculopathy [M54.16] 08/11/2016 Obesity, Class III, BMI >= 40 (morbid obesity) *09/29/2016 Delusional disorder (HCC) [F22] 10/14/2016 Chronic low back pain with sciatica [M54.40, G8*06/07/2017 Abnormal echocardiogram [R93.1] 08/18/2017 Chronic left-sided low back pain with sciatica *11/29/2017 COPD (chronic obstructive pulmonary disease) wi*03/13/2018 Positive urine drug screen [R82.5] 08/16/2018 Encounter for support and coordination of trans*05/15/2020 05/02/2021 Mild protein-calorie malnutrition (HCC) [E44.1] 08/26/2020 11/12/2021 Lumbar spondylosis [M47.816] 02/26/2021 Cervical spondylosis without myelopathy [M47.81*02/26/2021 Encounter for support and coordination of trans*05/02/2021 Other chest pain [R07.89] 10/21/2021 Stress incontinence [N39.3] 11/12/2021 Chronic active hepatitis C (HCC) [B18.2] 11/23/2021 History of colonic polyps [Z86.010] 11/23/2021 Traumatic closed nondisp torus fracture of dist*01/31/2022 Bacterial vaginosis [N76.0, B96.89] 02/02/2022 Spinal stenosis, lumbar region, without neuroge*02/24/2022 Cognitive impairment, mild, so stated [G31.84] 02/27/2022 History of cervical spinal surgery [Z98.890] 07/22/2023 Encounter Status:Closed by JAMES HUANG on 08/11/23 PROGRESS Observed: 08/10/2023 1:43 PM Status: COMPLETED Source: [facility] REPOSITORY HNO ID: [id number] Author: ?, ?, ? Service: ? Author Type: ? Type: Progress Notes Filed: 08/10/2023 13:45 Note Text: POPULATION HEALTH NAVIGATION OUTREACH Action/I [place] Support: Called pt to schedule an appt in Pain Management. Phone was answered and then someone hung up Patient Identified by Name and : NO Outreach Outcome/Action Unable to reach patient: Someone answered and then hung up after I introduced myself Did you use a PCP flex slot to schedule this appointment? No Reason for Outreach Care Gap or Scheduling/Wellness visits Payer: Payor: [employer] / [facility] / Product Type: Medicaid / Care Gap Reviewed:: Specialty Scheduling Reminder: Reminder note to check Health Maintenance for items below Health Maintenance items due: Hepatitis B Vaccine(1 of 3 - 3-dose series) Never done Spirometry Never done Hepatitis A Vaccine(1 of 2 - Risk 2-dose series) Never done Alpha-1 Antitrypsin Deficiency Screening Never done Shingrix Vaccine(2 of 2) due on 01/07/2022 Covid-19 Vaccine( season) due on 02/18/2023 Depression Assessment due on 06/20/2023 Mammogram Screening due on 09/02/2023 Navigation Signature: Tiffany Gregory August 10, 2023 1:44 PM CNPTOUTREACH Observed: 08/10/2023 12:00 AM Status: COMPLETED Source: [facility] REPOSITORY Patient Outreach ([facility]) MARILUZ GARCIA ([id number]) 1970 F Date Time Provider Department 08/10/23 NO PCP [facility] During your visit today, we recorded the following information about you: Tiffany Gregory 08/10/2023 1:45 PM Signed POPULATION HEALTH NAVIGATION OUTREACH Action/[facility] Support: Called pt to schedule an appt in Pain Management. Phone was answered and then someone hung up Patient Identified by Name and : NO Outreach Outcome/Action Unable to reach patient: Someone answered and then hung up after I introduced myself Did you use a PCP flex slot to schedule this appointment? No Reason for Outreach Care Gap or Scheduling/Wellness visits P[facility]: [facility] / Plan: [facility] MEDICA[facility] / Product Type: Medicaid / Care Gap Reviewed:: Specialty Scheduling Reminder: Reminder note to check Health Maintenance for items below Health Maintenance items due: Hepatitis B Vaccine(1 of 3 - 3-dose series) Never done Spirometry Never done Hepatitis A Vaccine(1 of 2 - Risk 2-dose series) Never done Alpha-1 Antitrypsin Deficiency Screening Never done Shingrix Vaccine(2 of 2) due on 01/07/2022 Covid-19 Vaccine( season) due on 02/18/2023 Depression Assessment due on 06/20/2023 Mammogram Screening due on 09/02/2023 Navigation Signature: Tiffany Gregory August 10, 2023 1:44 PM Allergies As of Date: 08/10/2023 Noted Allergy Reaction FENTANYL 08/22/2015 14 - Other: See Comments Comments: PATCH ONLY. Respiratory distress due to rapid absorption. CHANTIX (VARENICLINE) 09/30/2016 5 - Intolerance Comments: hallucinations Date Reviewed: 08/09/2023 Reviewed by: Estrella Lomeli LPN - Fully Assessed Prescriptions as of 08/10/2023 - metoprolol succinate ER (TOPROL XL) 50 mg 24 hr tablet Take 1 tablet by mouth once daily. - cyanocobalamin (VITAMIN B-12) 1,000 mcg tab Take 1 tablet by mouth once daily. - ibuprofen (MOTRIN) 800 mg tablet Take 1 tablet by mouth every 8 hours as needed for pain. Take with food. - oxyCODONE-acetaminophen (PERCOCET) 5-325 mg tablet Take 1 tablet by mouth every 8 hours as needed for pain for up to 7 days. - omeprazole (PRILOSEC) 20 mg capsule Take 1 capsule by mouth once daily. - Cholecalciferol, Vitamin D3, (VITAMIN D) 25 mcg (1,000 unit) cap Take 1 capsule by mouth once daily. - baclofen 5 mg tablet Take 1 tablet by mouth two times a day. - tiotropium bromide (SPIRIVA RESPIMAT) 2.5 mcg/actuation inhaler Inhale 2 Puffs as instructed once daily. - budesonide-formoterol (SYMBICORT) 160-4.5 mcg/actuation inhaler Inhale 2 Puffs as instructed two times a day. - amLODIPine (NORVASC) 10 mg tablet Take 1 tablet by mouth once daily. - thiamine (VITAMIN B1) 100 mg tablet Take 1 tablet by mouth once daily. - mirabegron (MYRBETRIQ) 25 mg Tb24 Take 1 tablet by mouth once daily. - pregabalin (LYRICA) 150 mg capsule Take one pill three times per day - atorvastatin (LIPITOR) 40 mg tablet Take 1 tablet by mouth daily at bedtime. - ferrous sulfate 325 mg (65 mg iron) tablet Take 1 tablet by mouth two times a day. - L.acidophilus-L.rhamnosus (FLORAJEN WOMEN) 15 billion cell capsule Take 1 capsule by mouth once daily. - oxybutynin ER (DITROPAN XL) 10 mg 24 hr tablet TAKE 1 TABLET BY MOUTH DAILY - Blood Pressure Monitor 1 Each once daily. ICD 10 code I10 - Blood Pressure Test Kit-Medium kit 1 Each once daily. - OLANZapine (ZYPREXA) 5 mg tablet Take 1 tablet by mouth once daily. - buPROPion XL (WELLBUTRIN XL) 150 mg 24 hr tablet Take 1 tablet by mouth once daily. - traZODone (DESYREL) 150 mg tablet Take 1 tablet by mouth at bedtime as needed. - WALKER ROLLATOR SEAT WITH 6 WHEELS - RED For daily use. M54.40, G89.29 Chronic left-sided low back pain with sciatica, sciatica laterality unspecified (primary encounter diagnosis) M51.36 DDD (degenerative disc disease), lumbar M47.816 Lumbar spondylosis R26.81 Gait instability - albuterol HFA (VENTOLIN HFA) 90 mcg/actuation inhaler Inhale 2 Puffs as instructed every 4 hours as needed for wheezing/shortness of breath. - VITAMIN C 500 mg tablet - albuterol (PROVENTIL) 2.5 mg /3 mL (0.083 %) nebulizer solution Use 3 mL via nebulizer every 4 hours as needed for wheezing/shortness of breath. Use over 5-15minutes. - Nebulizers Use as directed. - levothyroxine (SYNTHROID) 25 mcg tablet Take 25 mcg by mouth daily before breakfast. - COMPOUNDED PRESCRIPTION Standard size Rollator Walker #1 Dx Large Blood Pressure Cuff #1 M51.36 DDD (degenerative disc disease), lumbar (primary encounter diagnosis) I10 Essential hypertension - COMPOUNDED PRESCRIPTION ADJUSTABLE CANE DX M51.36 Problem List As Of Date 08/10/2023 Noted Resolved Back pain [M54.9] DDD (degenerative disc disease), lumbar [M51.36] Emphysema of lung (HCC) [J43.9] Tobacco use disorder [F17.200] Hypertension [I10] GERD (gastroesophageal reflux disease) [K21.9] Carpal tunnel syndrome, bilateral [G56.03] 09/23/2015 Obesity [E66.9] Anemia [D64.9] 11/04/2015 Radiculopathy, lumbar region [M54.16] 11/05/2015 Alcohol abuse [F10.10] Chronic midline low back pain with left-sided s*04/21/2016 PE (pulmonary thromboembolism) (HCC) [I26.99] Hyperglycemia [R73.9] 07/14/2016 Stasis edema [I87.309] 07/28/2016 Right lumbar radiculopathy [M54.16] 08/11/2016 Obesity, Class III, BMI >= 40 (morbid obesity) *09/29/2016 Delusional disorder (HCC) [F22] 10/14/2016 Chronic low back pain with sciatica [M54.40, G8*06/07/2017 Abnormal echocardiogram [R93.1] 08/18/2017 Chronic left-sided low back pain with sciatica *11/29/2017 COPD (chronic obstructive pulmonary disease) wi*03/13/2018 Positive urine drug screen [R82.5] 08/16/2018 Encounter for support and coordination of trans*05/15/2020 05/02/2021 Mild protein-calorie malnutrition (HCC) [E44.1] 08/26/2020 11/12/2021 Lumbar spondylosis [M47.816] 02/26/2021 Cervical spondylosis without myelopathy [M47.81*02/26/2021 Encounter for support and coordination of trans*05/02/2021 Other chest pain [R07.89] 10/21/2021 Stress incontinence [N39.3] 11/12/2021 Chronic active hepatitis C (HCC) [B18.2] 11/23/2021 History of colonic polyps [Z86.010] 11/23/2021 Traumatic closed nondisp torus fracture of dist*01/31/2022 Bacterial vaginosis [N76.0, B96.89] 02/02/2022 Spinal stenosis, lumbar region, without neuroge*02/24/2022 Cognitive impairment, mild, so stated [G31.84] 02/27/2022 History of cervical spinal surgery [Z98.890] 07/22/2023 Encounter Status:Closed by TIFFANY GREGORY on 08/10/23 CNOV Observed: 08/09/2023 11:40 AM Status: COMPLETED Source: [facility] REPOSITORY [facility] MARILUZ GARCIA ([id number]) 1970 F Date Time Provider Department 08/09/23 11:40 AM Jaimee PALOMARES During your visit today, we recorded the following information about you: Pulse Respiration Blood pressure Weight 77/minute 20/minute 118/70 91.6 kg Jaimee Palomares PA-C 08/10/2023 6:22 AM Signed 53 year old female with c/o here for follow up, multiple admissions States not going to see Dr. Staley Believes issues all r/t having spinal stimulator removed- blames Dr. Staley. Walking very painful Using cane, walker at home. Son is there to help Therapists coming to home Appetite good Bowels moving well, generally daily No incontinence. Has nothing for pain. Hasn't seen Dr. Skinner appt 08/12/2022 day after tomorrow. Tingling in tips of fingers/loss of feeling. Constant pain in neck and shoulders 8/10 She in wearing a forward bending cervical collar and does appear in significant discomfort. Confronted with Dr. Skinner's note that when her bone stimulator was delivered she had a beer in her hand and she chuckled and said that she just couldn't stand the pain. Claims she isn't using alcohol currently. Also claims Dr. Skinner told her that her PCP should provide pain management Has resumed Lyrica Appetite is good. Moving bowels daily with stool regimen Found scanned records from [facility]. Medication reconciliation shows she is on Meloxicam 7.5mg with hx mild renal injury acknowledge by Dr. Skinner Received message from [facility] she is listed still on Motrin from our record. She was also receiving Oxycodone 5mg 1 or 2 tabs every 6h for pain. 07/12/2023 had follow-up with Dr. Kendall Skinner's notes indicate that she has had improving strength in upper and lower extremities, 4 out of 4 plus strength, incision well-healed with mary and Steri-Strips removed. Follow-up in 4 weeks. From Marvin Leavitt's notes 07/22/2023: Mariluz Garcia is a 53 year old female who presents here today for Hospital Discharge/long term follow up Patient here for hospital follow-up. Admitted on June 27, 2023 to [facility]. Discharged July 03, 2023. She went to [place] from July 03 until yesterday Jul 21, 2023. I do not have any records from [place]. Was admitted for recent cervical surgery, pain, weakness. Patient had a C3-5 anterior cervical discectomy with fusion and plate instrument by Dr. Chance in late April 2023. Suffered fall at [facility] in May, fractured neck. Was hospitalized from 06/17 to 06/21 with generalized weakness of the arms and legs. Dr. Skinner followed her in the hospital for pain control, evaluation of cervical disease. She had follow up with him on 07/12. She has follow up again with him on 08/12. She did have ERICA during hospitalization, fluids were given. Resolved on 06/30. Diagnosed with physical deconditioning. Discharged home with home PT, outpatient therapy, nursing. They are coming out to the house today. She was discharged with oxycodone. But states that she is working on getting it filled. She is not taking her Lyrica. Has not taken since late May. Was not getting it at long term/hospital. She has a refill of it sent on 06/30/2023. At this time she denies any fevers, chills, syncope, dizziness. No chest pain or shortness of breath. Occasional headache. Bilateral hands continue to have numbness and tingling. This has been present since having cervical surgery. Legs feel okay today. Weak on occasions. Using a wheelchair to get all the way down to my office. Using a cane for stabilization with ambulation. Follows with pain management Dr. Staley. hospital discharge follow up Facility: [facility] Date of admission: 06/17/2023 Date of discharge: 06/21/2023 Consultations: 06/17/2023 orthopedic: Dr.Chirag Skinner Discharge diagnoses: 1. Closed C3 fracture 2. Status post cervical spinal fusion arthrodesis status Hospital course/Plan: 1. Worsening C-spine pain concern for hardware malfunction with recent C3-[address], [address] C-spine demonstrated postsurgical changes C3-C5 with slight increase separation of hardware from vertebral body at C2-3 level, mild prevertebral edema at C4-C6 slightly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 to make nurse anesthesiologist and critical care know and help her get set back up with pain management. Allergies As of Date: 08/01/2023 Noted Allergy Reaction FENTANYL 08/22/2015 14 - Other: See Comments Comments: PATCH ONLY. Respiratory distress due to rapid absorption. CHANTIX (VARENICLINE) 09/30/2016 5 - Intolerance Comments: hallucinations Date Reviewed: 07/22/2023 Reviewed by: Kathie Noble LPN - Fully Assessed Reason for Visit: Patient Update [1234] Primary Visit Diagnosis:Closed nondisplaced fracture of third cervical vertebra with routine healing, unspecified fracture morphology, subsequent encounter [[id number]] Order(s):CONSULT TO PAIN MGT [[id number]] Order #: [id number]: 1 FUTURE Prescriptions as of 08/04/2023 - omeprazole (PRILOSEC) 20 mg capsule Take 1 capsule by mouth once daily. - Cholecalciferol, Vitamin D3, (VITAMIN D) 25 mcg (1,000 unit) cap Take 1 capsule by mouth once daily. - baclofen 5 mg tablet Take 1 tablet by mouth two times a day. - tiotropium bromide (SPIRIVA RESPIMAT) 2.5 mcg/actuation inhaler Inhale 2 Puffs as instructed once daily. - budesonide-formoterol (SYMBICORT) 160-4.5 mcg/actuation inhaler Inhale 2 Puffs as instructed two times a day. - amLODIPine (NORVASC) 10 mg tablet Take 1 tablet by mouth once daily. - thiamine (VITAMIN B1) 100 mg tablet Take 1 tablet by mouth once daily. - mirabegron (MYRBETRIQ) 25 mg Tb24 Take 1 tablet by mouth once daily. - pregabalin (LYRICA) 150 mg capsule Take one pill three times per day - atorvastatin (LIPITOR) 40 mg tablet Take 1 tablet by mouth daily at bedtime. - ferrous sulfate 325 mg (65 mg iron) tablet Take 1 tablet by mouth two times a day. - metoprolol succinate ER (TOPROL XL) 50 mg 24 hr tablet Take 1 tablet by mouth once daily. - ibuprofen (MOTRIN) 800 mg tablet Take 1 tablet by mouth every 8 hours as needed for pain. Take with food. - cyanocobalamin (VITAMIN B-12) 1,000 mcg tab Take 1 tablet by mouth once daily. - L.acidophilus-L.rhamnosus (FLORAJEN WOMEN) 15 billion cell capsule Take 1 capsule by mouth once daily. - oxybutynin ER (DITROPAN XL) 10 mg 24 hr tablet TAKE 1 TABLET BY MOUTH DAILY - Blood Pressure Monitor 1 Each once daily. ICD 10 code I10 - Blood Pressure Test Kit-Medium kit 1 Each once daily. - OLANZapine (ZYPREXA) 5 mg tablet Take 1 tablet by mouth once daily. - buPROPion XL (WELLBUTRIN XL) 150 mg 24 hr tablet Take 1 tablet by mouth once daily. - traZODone (DESYREL) 150 mg tablet Take 1 tablet by mouth at bedtime as needed. - WALKER ROLLATOR SEAT WITH 6 WHEELS - RED For daily use. M54.40, G89.29 Chronic left-sided low back pain with sciatica, sciatica laterality unspecified (primary encounter diagnosis) M51.36 DDD (degenerative disc disease), lumbar M47.816 Lumbar spondylosis R26.81 Gait instability - albuterol HFA (VENTOLIN HFA) 90 mcg/actuation inhaler Inhale 2 Puffs as instructed every 4 hours as needed for wheezing/shortness of breath. - VITAMIN C 500 mg tablet - albuterol (PROVENTIL) 2.5 mg /3 mL (0.083 %) nebulizer solution Use 3 mL via nebulizer every 4 hours as needed for wheezing/shortness of breath. Use over 5-15minutes. - Nebulizers Use as directed. - levothyroxine (SYNTHROID) 25 mcg tablet Take 25 mcg by mouth daily before breakfast. - COMPOUNDED PRESCRIPTION Standard size Rollator Walker #1 Dx Large Blood Pressure Cuff #1 M51.36 DDD (degenerative disc disease), lumbar (primary encounter diagnosis) I10 Essential hypertension - COMPOUNDED PRESCRIPTION ADJUSTABLE CANE DX M51.36 Problem List As Of Date 08/01/2023 Noted Resolved Back pain [M54.9] DDD (degenerative disc disease), lumbar [M51.36] Emphysema of lung (HCC) [J43.9] Tobacco use disorder [F17.200] Hypertension [I10] GERD (gastroesophageal reflux disease) [K21.9] Carpal tunnel syndrome, bilateral [G56.03] 09/23/2015 Obesity [E66.9] Anemia [D64.9] 11/04/2015 Radiculopathy, lumbar region [M54.16] 11/05/2015 Alcohol abuse [F10.10] Chronic midline low back pain with left-sided s*04/21/2016 PE (pulmonary thromboembolism) (HCC) [I26.99] Hyperglycemia [R73.9] 07/14/2016 Stasis edema [I87.309] 07/28/2016 Right lumbar radiculopathy [M54.16] 08/11/2016 Obesity, Class III, BMI >= 40 (morbid obesity) *09/29/2016 Delusional disorder (HCC) [F22] 10/14/2016 Chronic low back pain with sciatica [M54.40, G8*06/07/2017 Abnormal echocardiogram [R93.1] 08/18/2017 Chronic left-sided low back pain with sciatica *11/29/2017 COPD (chronic obstructive pulmonary disease) wi*03/13/2018 Positive urine drug screen [R82.5] 08/16/2018 Encounter for support and coordination of trans*05/15/2020 05/02/2021 Mild protein-calorie malnutrition (HCC) [E44.1] 08/26/2020 11/12/2021 Lumbar spondylosis [M47.816] 02/26/2021 Cervical spondylosis without myelopathy [M47.81*02/26/2021 Encounter for support and coordination of trans*05/02/2021 Other chest pain [R07.89] 10/21/2021 Stress incontinence [N39.3] 11/12/2021 Chronic active hepatitis C (HCC) [B18.2] 11/23/2021 History of colonic polyps [Z86.010] 11/23/2021 Traumatic closed nondisp torus fracture of dist*01/31/2022 Bacterial vaginosis [N76.0, B96.89] 02/02/2022 Spinal stenosis, lumbar region, without neuroge*02/24/2022 Cognitive impairment, mild, so stated [G31.84] 02/27/2022 History of cervical spinal surgery [Z98.890] 07/22/2023 Encounter Status:Closed by JAMES HUANG on 08/04/23 HARPREET Observed: 07/28/2023 12:00 AM Status: COMPLETED Source: [facility] MARILUZ GARCIA ([id number]) 1970 F Date Time Provider Department 07/28/23 Jaimee [facility] During your visit today, we recorded the following information about you: Armando Piña LPN 07/28/2023 4:41 PM Signed Cecille with [facility] called for clarification dxs below. Checking to see if pt has the following. High cholesterol Anxiety Chronic Kidney Failure BiPolar Please advise Cecille. MATTEO Zavala William J, MD 07/28/2023 5:14 PM Addendum She has had renal insufficiency in the past. Most recent renal function here is normal. So no ckd. I am not seeing a definite dx of bipolar in the chart. She does have anxiety. She does have a history of hyperlipidemia Armando Piña LPN 07/29/2023 9:04 AM Signed Spoke with Michelle who is covering for Cecille. Message below given. Armando Piña LPN Allergies As of Date: 07/28/2023 Noted Allergy Reaction FENTANYL 08/22/2015 14 - Other: See Comments Comments: PATCH ONLY. Respiratory distress due to rapid absorption. CHANTIX (VARENICLINE) 09/30/2016 5 - Intolerance Comments: hallucinations Date Reviewed: 07/22/2023 Reviewed by: Kathie Noble LPN - Fully Assessed Reason for Visit: clarification on dxs [Other] Prescriptions as of 07/29/2023 - baclofen 5 mg tablet Take 1 tablet by mouth two times a day. - tiotropium bromide (SPIRIVA RESPIMAT) 2.5 mcg/actuation inhaler Inhale 2 Puffs as instructed once daily. - budesonide-formoterol (SYMBICORT) 160-4.5 mcg/actuation inhaler Inhale 2 Puffs as instructed two times a day. - amLODIPine (NORVASC) 10 mg tablet Take 1 tablet by mouth once daily. - thiamine (VITAMIN B1) 100 mg tablet Take 1 tablet by mouth once daily. - mirabegron (MYRBETRIQ) 25 mg Tb24 Take 1 tablet by mouth once daily. - pregabalin (LYRICA) 150 mg capsule Take one pill three times per day - atorvastatin (LIPITOR) 40 mg tablet Take 1 tablet by mouth daily at bedtime. - ferrous sulfate 325 mg (65 mg iron) tablet Take 1 tablet by mouth two times a day. - metoprolol succinate ER (TOPROL XL) 50 mg 24 hr tablet Take 1 tablet by mouth once daily. - ibuprofen (MOTRIN) 800 mg tablet Take 1 tablet by mouth every 8 hours as needed for pain. Take with food. - cyanocobalamin (VITAMIN B-12) 1,000 mcg tab Take 1 tablet by mouth once daily. - Cholecalciferol, Vitamin D3, (VITAMIN D) 25 mcg (1,000 unit) cap Take 1 capsule by mouth once daily. - omeprazole (PRILOSEC) 20 mg capsule Take 1 capsule by mouth once daily. - L.acidophilus-L.rhamnosus (FLORAJEN WOMEN) 15 billion cell capsule Take 1 capsule by mouth once daily. - oxybutynin ER (DITROPAN XL) 10 mg 24 hr tablet TAKE 1 TABLET BY MOUTH DAILY - Blood Pressure Monitor 1 Each once daily. ICD 10 code I10 - Blood Pressure Test Kit-Medium kit 1 Each once daily. - OLANZapine (ZYPREXA) 5 mg tablet Take 1 tablet by mouth once daily. - buPROPion XL (WELLBUTRIN XL) 150 mg 24 hr tablet Take 1 tablet by mouth once daily. - traZODone (DESYREL) 150 mg tablet Take 1 tablet by mouth at bedtime as needed. - WALKER ROLLATOR SEAT WITH 6 WHEELS - RED For daily use. M54.40, G89.29 Chronic left-sided low back pain with sciatica, sciatica laterality unspecified (primary encounter diagnosis) M51.36 DDD (degenerative disc disease), lumbar M47.816 Lumbar spondylosis R26.81 Gait instability - albuterol HFA (VENTOLIN HFA) 90 mcg/actuation inhaler Inhale 2 Puffs as instructed every 4 hours as needed for wheezing/shortness of breath. - VITAMIN C 500 mg tablet - albuterol (PROVENTIL) 2.5 mg /3 mL (0.083 %) nebulizer solution Use 3 mL via nebulizer every 4 hours as needed for wheezing/shortness of breath. Use over 5-15minutes. - Nebulizers Use as directed. - levothyroxine (SYNTHROID) 25 mcg tablet Take 25 mcg by mouth daily before breakfast. - COMPOUNDED PRESCRIPTION Standard size Rollator Walker #1 Dx Large Blood Pressure Cuff #1 M51.36 DDD (degenerative disc disease), lumbar (primary encounter diagnosis) I10 Essential hypertension - COMPOUNDED PRESCRIPTION ADJUSTABLE CANE DX M51.36 Problem List As Of Date 07/28/2023 Noted Resolved Back pain [M54.9] DDD (degenerative disc disease), lumbar [M51.36] Emphysema of lung (HCC) [J43.9] Tobacco use disorder [F17.200] Hypertension [I10] GERD (gastroesophageal reflux disease) [K21.9] Carpal tunnel syndrome, bilateral [G56.03] 09/23/2015 Obesity [E66.9] Anemia [D64.9] 11/04/2015 Radiculopathy, lumbar region [M54.16] 11/05/2015 Alcohol abuse [F10.10] Chronic midline low back pain with left-sided s*04/21/2016 PE (pulmonary thromboembolism) (HCC) [I26.99] Hyperglycemia [R73.9] 07/14/2016 Stasis edema [I87.309] 07/28/2016 Right lumbar radiculopathy [M54.16] 08/11/2016 Obesity, Class III, BMI >= 40 (morbid obesity) *09/29/2016 Delusional disorder (HCC) [F22] 10/14/2016 Chronic low back pain with sciatica [M54.40, G8*06/07/2017 Abnormal echocardiogram [R93.1] 08/18/2017 Chronic left-sided low back pain with sciatica *11/29/2017 COPD (chronic obstructive pulmonary disease) wi*03/13/2018 Positive urine drug screen [R82.5] 08/16/2018 Encounter for support and coordination of trans*05/15/2020 05/02/2021 Mild protein-calorie malnutrition (HCC) [E44.1] 08/26/2020 11/12/2021 Lumbar spondylosis [M47.816] 02/26/2021 Cervical spondylosis without myelopathy [M47.81*02/26/2021 Encounter for support and coordination of trans*05/02/2021 Other chest pain [R07.89] 10/21/2021 Stress incontinence [N39.3] 11/12/2021 Chronic active hepatitis C (HCC) [B18.2] 11/23/2021 History of colonic polyps [Z86.010] 11/23/2021 Traumatic closed nondisp torus fracture of dist*01/31/2022 Bacterial vaginosis [N76.0, B96.89] 02/02/2022 Spinal stenosis, lumbar region, without neuroge*02/24/2022 Cognitive impairment, mild, so stated [G31.84] 02/27/2022 History of cervical spinal surgery [Z98.890] 07/22/2023 Encounter Status:Closed by ARMANDO PIÑA on 07/29/23 HARPREET Observed: 07/27/2023 12:00 AM Status: COMPLETED Source: [facility] REPOSITORY Telephone [facility] MARILUZ AGRCIA ([id number]) 1970 F Date Time Provider Department 07/27/23 Jaimee [facility] During your visit today, we recorded the following information about you: Monalisa Orellana RN 07/27/2023 1:15 PM Signed ALEKSANDER Poe @ [facility] calling to request order for tub transfer bench be faxed to [facility] . She states OT is recommending this for the patient. Monalisa Orellana RN Memo Huber MD 07/27/2023 1:40 PM Signed Ok written Suzie Reno 07/27/2023 3:46 PM Signed Faxed. Suzie Reno Allergies As of Date: 07/27/2023 Noted Allergy Reaction FENTANYL 08/22/2015 14 - Other: See Comments Comments: PATCH ONLY. Respiratory distress due to rapid absorption. CHANTIX (VARENICLINE) 09/30/2016 5 - Intolerance Comments: hallucinations Date Reviewed: 07/22/2023 Reviewed by: Kathie Noble LPN - Fully Assessed Reason for Visit: Order for tub transfer bench [Other] Primary Visit Diagnosis:Right lumbar radiculopathy [M54.16] Other Visit Diagnoses:Radiculopathy, lumbar region [M54.16] Gait instability [R26.81] Order(s):DME SUPPLY OR ACCESSORY, NOS [[id number]] Order #: [id number] Prescriptions as of 07/27/2023 - baclofen 5 mg tablet Take 1 tablet by mouth two times a day. - tiotropium bromide (SPIRIVA RESPIMAT) 2.5 mcg/actuation inhaler Inhale 2 Puffs as instructed once daily. - budesonide-formoterol (SYMBICORT) 160-4.5 mcg/actuation inhaler Inhale 2 Puffs as instructed two times a day. - amLODIPine (NORVASC) 10 mg tablet Take 1 tablet by mouth once daily. - thiamine (VITAMIN B1) 100 mg tablet Take 1 tablet by mouth once daily. - mirabegron (MYRBETRIQ) 25 mg Tb24 Take 1 tablet by mouth once daily. - pregabalin (LYRICA) 150 mg capsule Take one pill three times per day - atorvastatin (LIPITOR) 40 mg tablet Take 1 tablet by mouth daily at bedtime. - ferrous sulfate 325 mg (65 mg iron) tablet Take 1 tablet by mouth two times a day. - metoprolol succinate ER (TOPROL XL) 50 mg 24 hr tablet Take 1 tablet by mouth once daily. - ibuprofen (MOTRIN) 800 mg tablet Take 1 tablet by mouth every 8 hours as needed for pain. Take with food. - cyanocobalamin (VITAMIN B-12) 1,000 mcg tab Take 1 tablet by mouth once daily. - Cholecalciferol, Vitamin D3, (VITAMIN D) 25 mcg (1,000 unit) cap Take 1 capsule by mouth once daily. - omeprazole (PRILOSEC) 20 mg capsule Take 1 capsule by mouth once daily. - L.acidophilus-L.rhamnosus (FLORAJEN WOMEN) 15 billion cell capsule Take 1 capsule by mouth once daily. - oxybutynin ER (DITROPAN XL) 10 mg 24 hr tablet TAKE 1 TABLET BY MOUTH DAILY - Blood Pressure Monitor 1 Each once daily. ICD 10 code I10 - Blood Pressure Test Kit-Medium kit 1 Each once daily. - OLANZapine (ZYPREXA) 5 mg tablet Take 1 tablet by mouth once daily. - buPROPion XL (WELLBUTRIN XL) 150 mg 24 hr tablet Take 1 tablet by mouth once daily. - traZODone (DESYREL) 150 mg tablet Take 1 tablet by mouth at bedtime as needed. - WALKER ROLLATOR SEAT WITH 6 WHEELS - RED For daily use. M54.40, G89.29 Chronic left-sided low back pain with sciatica, sciatica laterality unspecified (primary encounter diagnosis) M51.36 DDD (degenerative disc disease), lumbar M47.816 Lumbar spondylosis R26.81 Gait instability - albuterol HFA (VENTOLIN HFA) 90 mcg/actuation inhaler Inhale 2 Puffs as instructed every 4 hours as needed for wheezing/shortness of breath. - VITAMIN C 500 mg tablet - albuterol (PROVENTIL) 2.5 mg /3 mL (0.083 %) nebulizer solution Use 3 mL via nebulizer every 4 hours as needed for wheezing/shortness of breath. Use over 5-15minutes. - Nebulizers Use as directed. - levothyroxine (SYNTHROID) 25 mcg tablet Take 25 mcg by mouth daily before breakfast. - COMPOUNDED PRESCRIPTION Standard size Rollator Walker #1 Dx Large Blood Pressure Cuff #1 M51.36 DDD (degenerative disc disease), lumbar (primary encounter diagnosis) I10 Essential hypertension - COMPOUNDED PRESCRIPTION ADJUSTABLE CANE DX M51.36 Problem List As Of Date 07/27/2023 Noted Resolved Back pain [M54.9] DDD (degenerative disc disease), lumbar [M51.36] Emphysema of lung (HCC) [J43.9] Tobacco use disorder [F17.200] Hypertension [I10] GERD (gastroesophageal reflux disease) [K21.9] Carpal tunnel syndrome, bilateral [G56.03] 09/23/2015 Obesity [E66.9] Anemia [D64.9] 11/04/2015 Radiculopathy, lumbar region [M54.16] 11/05/2015 Alcohol abuse [F10.10] Chronic midline low back pain with left-sided s*04/21/2016 PE (pulmonary thromboembolism) (HCC) [I26.99] Hyperglycemia [R73.9] 07/14/2016 Stasis edema [I87.309] 07/28/2016 Right lumbar radiculopathy [M54.16] 08/11/2016 Obesity, Class III, BMI >= 40 (morbid obesity) *09/29/2016 Delusional disorder (HCC) [F22] 10/14/2016 Chronic low back pain with sciatica [M54.40, G8*06/07/2017 Abnormal echocardiogram [R93.1] 08/18/2017 Chronic left-sided low back pain with sciatica *11/29/2017 COPD (chronic obstructive pulmonary disease) wi*03/13/2018 Positive urine drug screen [R82.5] 08/16/2018 Encounter for support and coordination of trans*05/15/2020 05/02/2021 Mild protein-calorie malnutrition (HCC) [E44.1] 08/26/2020 11/12/2021 Lumbar spondylosis [M47.816] 02/26/2021 Cervical spondylosis without myelopathy [M47.81*02/26/2021 Encounter for support and coordination of trans*05/02/2021 Other chest pain [R07.89] 10/21/2021 Stress incontinence [N39.3] 11/12/2021 Chronic active hepatitis C (HCC) [B18.2] 11/23/2021 History of colonic polyps [Z86.010] 11/23/2021 Traumatic closed nondisp torus fracture of dist*01/31/2022 Bacterial vaginosis [N76.0, B96.89] 02/02/2022 Spinal stenosis, lumbar region, without neuroge*02/24/2022 Cognitive impairment, mild, so stated [G31.84] 02/27/2022 History of cervical spinal surgery [Z98.890] 07/22/2023 Encounter Status:Closed by SUZIE ERNO on 07/27/23 HARPREET Observed: 07/27/2023 12:00 AM Status: COMPLETED Source: [facility] REPOSITORY Tele[facility] MARILUZ GARCIA ([id number]) 1970 F Date Time Provider Department 07/27/23 [facility] During your visit today, we recorded the following information about you: Maribell Baltazar LPN 07/27/2023 11:26 AM Signed Bailey from [facility] Home Health calling with OT plan of care, 1 visit this week, then 2 visits weekly for 2 weeks, then 1 visit weekly for 1 week. Working ion ADL's and home exercise program. BP at 1045 am was 142/97 pulse 99 patient had told her she was out of one of her bp medications. Bailey does not require a call back. Memo Huber MD 07/27/2023 12:28 PM Signed noted Allergies As of Date: 07/27/2023 Noted Allergy Reaction FENTANYL 08/22/2015 14 - Other: See Comments Comments: PATCH ONLY. Respiratory distress due to rapid absorption. CHANTIX (VARENICLINE) 09/30/2016 5 - Intolerance Comments: hallucinations Date Reviewed: 07/22/2023 Reviewed by: Kathie Noble LPN - Fully Assessed Reason for Visit: OT plan of care [Other] Prescriptions as of 07/27/2023 - baclofen 5 mg tablet Take 1 tablet by mouth two times a day. - tiotropium bromide (SPIRIVA RESPIMAT) 2.5 mcg/actuation inhaler Inhale 2 Puffs as instructed once daily. - budesonide-formoterol (SYMBICORT) 160-4.5 mcg/actuation inhaler Inhale 2 Puffs as instructed two times a day. - amLODIPine (NORVASC) 10 mg tablet Take 1 tablet by mouth once daily. - thiamine (VITAMIN B1) 100 mg tablet Take 1 tablet by mouth once daily. - mirabegron (MYRBETRIQ) 25 mg Tb24 Take 1 tablet by mouth once daily. - pregabalin (LYRICA) 150 mg capsule Take one pill three times per day - atorvastatin (LIPITOR) 40 mg tablet Take 1 tablet by mouth daily at bedtime. - ferrous sulfate 325 mg (65 mg iron) tablet Take 1 tablet by mouth two times a day. - metoprolol succinate ER (TOPROL XL) 50 mg 24 hr tablet Take 1 tablet by mouth once daily. - ibuprofen (MOTRIN) 800 mg tablet Take 1 tablet by mouth every 8 hours as needed for pain. Take with food. - cyanocobalamin (VITAMIN B-12) 1,000 mcg tab Take 1 tablet by mouth once daily. - Cholecalciferol, Vitamin D3, (VITAMIN D) 25 mcg (1,000 unit) cap Take 1 capsule by mouth once daily. - omeprazole (PRILOSEC) 20 mg capsule Take 1 capsule by mouth once daily. - L.acidophilus-L.rhamnosus (FLORAJEN WOMEN) 15 billion cell capsule Take 1 capsule by mouth once daily. - oxybutynin ER (DITROPAN XL) 10 mg 24 hr tablet TAKE 1 TABLET BY MOUTH DAILY - Blood Pressure Monitor 1 Each once daily. ICD 10 code I10 - Blood Pressure Test Kit-Medium kit 1 Each once daily. - OLANZapine (ZYPREXA) 5 mg tablet Take 1 tablet by mouth once daily. - buPROPion XL (WELLBUTRIN XL) 150 mg 24 hr tablet Take 1 tablet by mouth once daily. - traZODone (DESYREL) 150 mg tablet Take 1 tablet by mouth at bedtime as needed. - WALKER ROLLATOR SEAT WITH 6 WHEELS - RED For daily use. M54.40, G89.29 Chronic left-sided low back pain with sciatica, sciatica laterality unspecified (primary encounter diagnosis) M51.36 DDD (degenerative disc disease), lumbar M47.816 Lumbar spondylosis R26.81 Gait instability - albuterol HFA (VENTOLIN HFA) 90 mcg/actuation inhaler Inhale 2 Puffs as instructed every 4 hours as needed for wheezing/shortness of breath. - VITAMIN C 500 mg tablet - albuterol (PROVENTIL) 2.5 mg /3 mL (0.083 %) nebulizer solution Use 3 mL via nebulizer every 4 hours as needed for wheezing/shortness of breath. Use over 5-15minutes. - Nebulizers Use as directed. - levothyroxine (SYNTHROID) 25 mcg tablet Take 25 mcg by mouth daily before breakfast. - COMPOUNDED PRESCRIPTION Standard size Rollator Walker #1 Dx Large Blood Pressure Cuff #1 M51.36 DDD (degenerative disc disease), lumbar (primary encounter diagnosis) I10 Essential hypertension - COMPOUNDED PRESCRIPTION ADJUSTABLE CANE DX M51.36 Problem List As Of Date 07/27/2023 Noted Resolved Back pain [M54.9] DDD (degenerative disc disease), lumbar [M51.36] Emphysema of lung (HCC) [J43.9] Tobacco use disorder [F17.200] Hypertension [I10] GERD (gastroesophageal reflux disease) [K21.9] Carpal tunnel syndrome, bilateral [G56.03] 09/23/2015 Obesity [E66.9] Anemia [D64.9] 11/04/2015 Radiculopathy, lumbar region [M54.16] 11/05/2015 Alcohol abuse [F10.10] Chronic midline low back pain with left-sided s*04/21/2016 PE (pulmonary thromboembolism) (HCC) [I26.99] Hyperglycemia [R73.9] 07/14/2016 Stasis edema [I87.309] 07/28/2016 Right lumbar radiculopathy [M54.16] 08/11/2016 Obesity, Class III, BMI >= 40 (morbid obesity) *09/29/2016 Delusional disorder (HCC) [F22] 10/14/2016 Chronic low back pain with sciatica [M54.40, G8*06/07/2017 Abnormal echocardiogram [R93.1] 08/18/2017 Chronic left-sided low back pain with sciatica *11/29/2017 COPD (chronic obstructive pulmonary disease) wi*03/13/2018 Positive urine drug screen [R82.5] 08/16/2018 Encounter for support and coordination of trans*05/15/2020 05/02/2021 Mild protein-calorie malnutrition (HCC) [E44.1] 08/26/2020 11/12/2021 Lumbar spondylosis [M47.816] 02/26/2021 Cervical spondylosis without myelopathy [M47.81*02/26/2021 Encounter for support and coordination of trans*05/02/2021 Other chest pain [R07.89] 10/21/2021 Stress incontinence [N39.3] 11/12/2021 Chronic active hepatitis C (HCC) [B18.2] 11/23/2021 History of colonic polyps [Z86.010] 11/23/2021 Traumatic closed nondisp torus fracture of dist*01/31/2022 Bacterial vaginosis [N76.0, B96.89] 02/02/2022 Spinal stenosis, lumbar region, without neuroge*02/24/2022 Cognitive impairment, mild, so stated [G31.84] 02/27/2022 History of cervical spinal surgery [Z98.890] 07/22/2023 Encounter Status:Closed by MEMO HUBER on 07/27/23 CNOV Observed: 07/22/2023 7:40 AM Status: COMPLETED Source: [facility] REPOSITORY [facility] MARILUZ GARCIA ([id number]) 1970 F Date Time Provider Department 07/22/23 7:40 AM MARVIN LEAVITT [facility] During your visit today, we recorded the following information about you: Pulse Respiration Blood pressure Weight 82/minute 20/minute 140/90 85.7 kg Marvin Leavitt APRN.[facility] 07/22/2023 8:32 AM Signed Chief Complaint Patient presents with: Follow Up: Follow up from [facility] Mariluz Garcia is a 53 year old female who presents here today for Hospital Discharge/long term follow up Patient here for hospital follow-up. Admitted on June 27, 2023 to [facility]. Discharged July 03, 2023. She went to [place] from July 03 until yesterday Jul 21, 2023. I do not have any records from [place]. Was admitted for recent cervical surgery, pain, weakness. Patient had a C3-5 anterior cervical discectomy with fusion and plate instrument by Dr. Chance in late April 2023. Suffered fall at [facility] in May, fractured neck. Was hospitalized from 06/17 to 06/21 with generalized weakness of the arms and legs. Dr. Skinner followed her in the hospital for pain control, evaluation of cervical disease. She had follow up with him on 07/12. She has follow up again with him on 08/12. She did have ERICA during hospitalization, fluids were given. Resolved on 06/30. Diagnosed with physical deconditioning. Discharged home with home PT, outpatient therapy, nursing. They are coming out to the house today. She was discharged with oxycodone. But states that she is working on getting it filled. She is not taking her Lyrica. Has not taken since late May. Was not getting it at long term/hospital. She has a refill of it sent on 06/30/2023. At this time she denies any fevers, chills, syncope, dizziness. No chest pain or shortness of breath. Occasional headache. Bilateral hands continue to have numbness and tingling. This has been present since having cervical surgery. Legs feel okay today. Weak on occasions. Using a wheelchair to get all the way down to my office. Using a cane for stabilization with ambulation. Follows with pain management Dr. Staley. Past medical history, appointments, medications, allergies reviewed. EXAM: BP 140/90 Pulse 82 Resp 20 Wt 85.7 kg (189 lb) SpO2 95% BMI 31.45 kg/m? General Appearance: Well appearing, alert, in no acute distress, well-hydrated, well nourished.. Skin: anterior surgical incision on neck is well healed. Lungs: Lungs clear to auscultation. No wheezing, rhonchi, rales.. Heart: RRR without murmur, gallop, or rubs. No ectopy. Musculoskeletal: manager mutual fund strength diminished, equal 4/5 ASSESSMENT/PLAN: 1. Cervical spondylosis with myelopathy - ICD9: 721.0, ICD10: M47.812 (primary diagnosis) - Continue to follow with Dr. Skinner. 2. Fibromyalgia - ICD9: 729.1, ICD10: M79.7 - Continue with Lyrica, has refills at pharmacy. 3. History of cervical spinal surgery - ICD9: V45.89, ICD10: Z98.890 - Continue to follow with Dr. Skinner. 4. Hypertension, essential - ICD9: 401.9, ICD10: I10 - Controlled - Continue current medications - Recommend home blood pressure monitoring, to bring results to next visit - Encouraged sodium restriction, DASH or Mediterranean diet - Recommend regular aerobic exercise Marvin Leavitt APRN.APPLIED COMPUTER SCIENCE PROFESSOR RTO in 1 months with PCP team. This note was partly generated using [employer] voice recognition dictation and may contain some misspelled or inaccurate words missed on review. Marvin Leavitt APRN.CNP 07/22/2023 1:17 PM Signed Addended by: MARVIN LEAVITT on: 07/22/2023 01:17 PM Modules accepted: Orders Referring Provider: SELF [200] Allergies As of Date: 07/22/2023 Noted Allergy Reaction FENTANYL 08/22/2015 14 - Other: See Comments Comments: PATCH ONLY. Respiratory distress due to rapid absorption. CHANTIX (VARENICLINE) 09/30/2016 5 - Intolerance Comments: hallucinations Date Reviewed: 07/22/2023 Reviewed by: Kathie Noble LPN - Fully Assessed Reason for Visit: Follow Up [171] Cmt: [facility] up [facility] Primary Visit Diagnosis:Cervical spondylosis without myelopathy [M47.812] Other Visit Diagnoses:Fibromyalgia [M79.7] History of cervical spinal surgery [Z98.890] Hypertension, essential [I10] Order(s):baclofen 5 mg tabletTake 1 tablet by mouth two times a day.Disp: Rfl: Prescriptions as of 07/22/2023 - baclofen 5 mg tablet Take 1 tablet by mouth two times a day. - tiotropium bromide (SPIRIVA RESPIMAT) 2.5 mcg/actuation inhaler Inhale 2 Puffs as instructed once daily. - budesonide-formoterol (SYMBICORT) 160-4.5 mcg/actuation inhaler Inhale 2 Puffs as instructed two times a day. - amLODIPine (NORVASC) 10 mg tablet Take 1 tablet by mouth once daily. - thiamine (VITAMIN B1) 100 mg tablet Take 1 tablet by mouth once daily. - mirabegron (MYRBETRIQ) 25 mg Tb24 Take 1 tablet by mouth once daily. - pregabalin (LYRICA) 150 mg capsule Take one pill three times per day - atorvastatin (LIPITOR) 40 mg tablet Take 1 tablet by mouth daily at bedtime. - ferrous sulfate 325 mg (65 mg iron) tablet Take 1 tablet by mouth two times a day. - metoprolol succinate ER (TOPROL XL) 50 mg 24 hr tablet Take 1 tablet by mouth once daily. - ibuprofen (MOTRIN) 800 mg tablet Take 1 tablet by mouth every 8 hours as needed for pain. Take with food. - cyanocobalamin (VITAMIN B-12) 1,000 mcg tab Take 1 tablet by mouth once daily. - Cholecalciferol, Vitamin D3, (VITAMIN D) 25 mcg (1,000 unit) cap Take 1 capsule by mouth once daily. - omeprazole (PRILOSEC) 20 mg capsule Take 1 capsule by mouth once daily. - L.acidophilus-L.rhamnosus (FLORAJEN WOMEN) 15 billion cell capsule Take 1 capsule by mouth once daily. - oxybutynin ER (DITROPAN XL) 10 mg 24 hr tablet TAKE 1 TABLET BY MOUTH DAILY - Blood Pressure Monitor 1 Each once daily. ICD 10 code I10 - Blood Pressure Test Kit-Medium kit 1 Each once daily. - OLANZapine (ZYPREXA) 5 mg tablet Take 1 tablet by mouth once daily. - buPROPion XL (WELLBUTRIN XL) 150 mg 24 hr tablet Take 1 tablet by mouth once daily. - traZODone (DESYREL) 150 mg tablet Take 1 tablet by mouth at bedtime as needed. - WALKER ROLLATOR SEAT WITH 6 WHEELS - RED For daily use. M54.40, G89.29 Chronic left-sided low back pain with sciatica, sciatica laterality unspecified (primary encounter diagnosis) M51.36 DDD (degenerative disc disease), lumbar M47.816 Lumbar spondylosis R26.81 Gait instability - albuterol HFA (VENTOLIN HFA) 90 mcg/actuation inhaler Inhale 2 Puffs as instructed every 4 hours as needed for wheezing/shortness of breath. - VITAMIN C 500 mg tablet - albuterol (PROVENTIL) 2.5 mg /3 mL (0.083 %) nebulizer solution Use 3 mL via nebulizer every 4 hours as needed for wheezing/shortness of breath. Use over 5-15minutes. - Nebulizers Use as directed. - levothyroxine (SYNTHROID) 25 mcg tablet Take 25 mcg by mouth daily before breakfast. - COMPOUNDED PRESCRIPTION Standard size Rollator Walker #1 Dx Large Blood Pressure Cuff #1 M51.36 DDD (degenerative disc disease), lumbar (primary encounter diagnosis) I10 Essential hypertension - COMPOUNDED PRESCRIPTION ADJUSTABLE CANE DX M51.36 Problem List As Of Date 07/22/2023 Noted Resolved Back pain [M54.9] DDD (degenerative disc disease), lumbar [M51.36] Emphysema of lung (HCC) [J43.9] Tobacco use disorder [F17.200] Hypertension [I10] GERD (gastroesophageal reflux disease) [K21.9] Carpal tunnel syndrome, bilateral [G56.03] 09/23/2015 Obesity [E66.9] Anemia [D64.9] 11/04/2015 Radiculopathy, lumbar region [M54.16] 11/05/2015 Alcohol abuse [F10.10] Chronic midline low back pain with left-sided s*04/21/2016 PE (pulmonary thromboembolism) (HCC) [I26.99] Hyperglycemia [R73.9] 07/14/2016 Stasis edema [I87.309] 07/28/2016 Right lumbar radiculopathy [M54.16] 08/11/2016 Obesity, Class III, BMI >= 40 (morbid obesity) *09/29/2016 Delusional disorder (HCC) [F22] 10/14/2016 Chronic low back pain with sciatica [M54.40, G8*06/07/2017 Abnormal echocardiogram [R93.1] 08/18/2017 Chronic left-sided low back pain with sciatica *11/29/2017 COPD (chronic obstructive pulmonary disease) wi*03/13/2018 Positive urine drug screen [R82.5] 08/16/2018 Encounter for support and coordination of trans*05/15/2020 05/02/2021 Mild protein-calorie malnutrition (HCC) [E44.1] 08/26/2020 11/12/2021 Lumbar spondylosis [M47.816] 02/26/2021 Cervical spondylosis without myelopathy [M47.81*02/26/2021 Encounter for support and coordination of trans*05/02/2021 Other chest pain [R07.89] 10/21/2021 Stress incontinence [N39.3] 11/12/2021 Chronic active hepatitis C (HCC) [B18.2] 11/23/2021 History of colonic polyps [Z86.010] 11/23/2021 Traumatic closed nondisp torus fracture of dist*01/31/2022 Bacterial vaginosis [N76.0, B96.89] 02/02/2022 Spinal stenosis, lumbar region, without neuroge*02/24/2022 Cognitive impairment, mild, so stated [G31.84] 02/27/2022 History of cervical spinal surgery [Z98.890] 07/22/2023 Prescriptions ordered this encounter Disp Refills Start End BACLOFEN 5 MG TABLET 07/22/2023 Class: Med Update Route: ORAL Sig: Take 1 tablet by mouth two times a day. Medications Discontinued During This Encounter Prescriptions - baclofen 10 mg tablet (Discontinued) Take 10 mg by mouth two times a day. Level of Service: OFFICE/OUTPATIENT ESTABLISHED MOD MDM 30 MIN [[id number]] Disposition: Return in about 3 weeks (around 08/12/2023) for 2-3 week folllow up with Faustino Palomares. Follow-up and Disposition History for Encounter Date Provider Department Center 07/22/2023 [id number], JESSE FAMPWS [facility] Encounter Status:Closed by MARVIN LEAVITT on 07/22/23 PROGRESS Observed: 07/22/2023 7:40 AM Status: COMPLETED Source: [facility] REPOSITORY HNO ID: [id number] Author: MARVIN LEAVITT APRN.APPLIED COMPUTER SCIENCE PROFESSOR Service: ? Author Type: Nurse Practitioner Type: Progress Notes Filed: 07/22/2023 08:32 Note Text: Chief Complaint Patient presents with: Follow Up: [facility] up from [facility] Mariluz Garcia is a 53 year old female who presents here today for Hospital Discharge/long term follow up Patient here for hospital follow-up. Admitted on June 27, 2023 to [facility]. Discharged July 03, 2023. She went to [place] from July 03 until yesterday Jul 21, 2023. I do not have any records from [place]. Was admitted for recent cervical surgery, pain, weakness. Patient had a C3-5 anterior cervical discectomy with fusion and plate instrument by Dr. Chance in late April 2023. Suffered fall at [facility] in May, fractured neck. Was hospitalized from 06/17 to 06/21 with generalized weakness of the arms and legs. Dr. Skinner followed her in the hospital for pain control, evaluation of cervical disease. She had follow up with him on 07/12. She has follow up again with him on 08/12. She did have ERICA during hospitalization, fluids were given. Resolved on 06/30. Diagnosed with physical deconditioning. Discharged home with home PT, outpatient therapy, nursing. They are coming out to the house today. She was discharged with oxycodone. But states that she is working on getting it filled. She is not taking her Lyrica. Has not taken since late May. Was not getting it at long term/hospital. She has a refill of it sent on 06/30/2023. At this time she denies any fevers, chills, syncope, dizziness. No chest pain or shortness of breath. Occasional headache. Bilateral hands continue to have numbness and tingling. This has been present since having cervical surgery. Legs feel okay today. Weak on occasions. Using a wheelchair to get all the way down to my office. Using a cane for stabilization with ambulation. Follows with pain management Dr. Staley. Past medical history, appointments, medications, allergies reviewed. EXAM: BP 140/90 Pulse 82 Resp 20 Wt 85.7 kg (189 lb) SpO2 95% BMI 31.45 kg/m? General Appearance: Well appearing, alert, in no acute distress, well-hydrated, well nourished.. Skin: anterior surgical incision on neck is well healed. Lungs: Lungs clear to auscultation. No wheezing, rhonchi, rales.. Heart: RRR without murmur, gallop, or rubs. No ectopy. Musculoskeletal: manager mutual fund strength diminished, equal 4/5 ASSESSMENT/PLAN: 1. Cervical spondylosis with myelopathy - ICD9: 721.0, ICD10: M47.812 (primary diagnosis) - Continue to follow with Dr. Skinner. 2. Fibromyalgia - ICD9: 729.1, ICD10: M79.7 - Continue with Lyrica, has refills at pharmacy. 3. History of cervical spinal surgery - ICD9: V45.89, ICD10: Z98.890 - Continue to follow with Dr. Skinner. 4. Hypertension, essential - ICD9: 401.9, ICD10: I10 - Controlled - Continue current medications - Recommend home blood pressure monitoring, to bring results to next visit - Encouraged sodium restriction, DASH or Mediterranean diet - Recommend regular aerobic exercise Marvin Leavitt APRN.ALYSSA RTO in 1 months with PCP team. This note was partly generated using [employer] voice recognition dictation and may contain some misspelled or inaccurate words missed on review. HARPREET Observed: 07/22/2023 12:00 AM Status: COMPLETED Source: [facility] REPOSITORY [facility] BRITTONMARILUZ Nanci ([id number]) 1970 F Date Time Provider Department 07/22/23 Jaimee PALOMARES During your visit today, we recorded the following information about you: Jaimee Foster, RN 07/22/2023 2:45 PM Signed [facility]- [facility] nursing calling in POC: nursing will see pt 1 x this week, then 2 x's next week, then 1 x week for 3 weeks. SW will see pt for community resources, FOAM RU[employer]ER MIXER will see pt 1 x week for 2 weeks, to help with shower. Pt reports neck pain 01/27, but did not display pain: no grimacing, moved neck normally , no rubbing neck with movement. Pt tells [facility], it will be fine once she gets her pain meds- being delivered from [facility] today. No call back needed. Allergies As of Date: 07/22/2023 Noted Allergy Reaction FENTANYL 08/22/2015 14 - Other: See Comments Comments: PATCH ONLY. Respiratory distress due to rapid absorption. CHANTIX (VARENICLINE) 09/30/2016 5 - Intolerance Comments: hallucinations Date Reviewed: 07/22/2023 Reviewed by: Kathie Noble LPN - Fully Assessed Reason for Visit: [facility] nursing POC [Other] Prescriptions as of 07/22/2023 - baclofen 5 mg tablet Take 1 tablet by mouth two times a day. - tiotropium bromide (SPIRIVA RESPIMAT) 2.5 mcg/actuation inhaler Inhale 2 Puffs as instructed once daily. - budesonide-formoterol (SYMBICORT) 160-4.5 mcg/actuation inhaler Inhale 2 Puffs as instructed two times a day. - amLODIPine (NORVASC) 10 mg tablet Take 1 tablet by mouth once daily. - thiamine (VITAMIN B1) 100 mg tablet Take 1 tablet by mouth once daily. - mirabegron (MYRBETRIQ) 25 mg Tb24 Take 1 tablet by mouth once daily. - pregabalin (LYRICA) 150 mg capsule Take one pill three times per day - atorvastatin (LIPITOR) 40 mg tablet Take 1 tablet by mouth daily at bedtime. - ferrous sulfate 325 mg (65 mg iron) tablet Take 1 tablet by mouth two times a day. - metoprolol succinate ER (TOPROL XL) 50 mg 24 hr tablet Take 1 tablet by mouth once daily. - ibuprofen (MOTRIN) 800 mg tablet Take 1 tablet by mouth every 8 hours as needed for pain. Take with food. - cyanocobalamin (VITAMIN B-12) 1,000 mcg tab Take 1 tablet by mouth once daily. - Cholecalciferol, Vitamin D3, (VITAMIN D) 25 mcg (1,000 unit) cap Take 1 capsule by mouth once daily. - omeprazole (PRILOSEC) 20 mg capsule Take 1 capsule by mouth once daily. - L.acidophilus-L.rhamnosus (FLORAJEN WOMEN) 15 billion cell capsule Take 1 capsule by mouth once daily. - oxybutynin ER (DITROPAN XL) 10 mg 24 hr tablet TAKE 1 TABLET BY MOUTH DAILY - Blood Pressure Monitor 1 Each once daily. ICD 10 code I10 - Blood Pressure Test Kit-Medium kit 1 Each once daily. - OLANZapine (ZYPREXA) 5 mg tablet Take 1 tablet by mouth once daily. - buPROPion XL (WELLBUTRIN XL) 150 mg 24 hr tablet Take 1 tablet by mouth once daily. - traZODone (DESYREL) 150 mg tablet Take 1 tablet by mouth at bedtime as needed. - WALKER ROLLATOR SEAT WITH 6 WHEELS - RED For daily use. M54.40, G89.29 Chronic left-sided low back pain with sciatica, sciatica laterality unspecified (primary encounter diagnosis) M51.36 DDD (degenerative disc disease), lumbar M47.816 Lumbar spondylosis R26.81 Gait instability - albuterol HFA (VENTOLIN HFA) 90 mcg/actuation inhaler Inhale 2 Puffs as instructed every 4 hours as needed for wheezing/shortness of breath. - VITAMIN C 500 mg tablet - albuterol (PROVENTIL) 2.5 mg /3 mL (0.083 %) nebulizer solution Use 3 mL via nebulizer every 4 hours as needed for wheezing/shortness of breath. Use over 5-15minutes. - Nebulizers Use as directed. - levothyroxine (SYNTHROID) 25 mcg tablet Take 25 mcg by mouth daily before breakfast. - COMPOUNDED PRESCRIPTION Standard size Rollator Walker #1 Dx Large Blood Pressure Cuff #1 M51.36 DDD (degenerative disc disease), lumbar (primary encounter diagnosis) I10 Essential hypertension - COMPOUNDED PRESCRIPTION ADJUSTABLE CANE DX M51.36 Problem List As Of Date 07/22/2023 Noted Resolved Back pain [M54.9] DDD (degenerative disc disease), lumbar [M51.36] Emphysema of lung (HCC) [J43.9] Tobacco use disorder [F17.200] Hypertension [I10] GERD (gastroesophageal reflux disease) [K21.9] Carpal tunnel syndrome, bilateral [G56.03] 09/23/2015 Obesity [E66.9] Anemia [D64.9] 11/04/2015 Radiculopathy, lumbar region [M54.16] 11/05/2015 Alcohol abuse [F10.10] Chronic midline low back pain with left-sided s*04/21/2016 PE (pulmonary thromboembolism) (HCC) [I26.99] Hyperglycemia [R73.9] 07/14/2016 Stasis edema [I87.309] 07/28/2016 Right lumbar radiculopathy [M54.16] 08/11/2016 Obesity, Class III, BMI >= 40 (morbid obesity) *09/29/2016 Delusional disorder (HCC) [F22] 10/14/2016 Chronic low back pain with sciatica [M54.40, G8*06/07/2017 Abnormal echocardiogram [R93.1] 08/18/2017 Chronic left-sided low back pain with sciatica *11/29/2017 COPD (chronic obstructive pulmonary disease) wi*03/13/2018 Positive urine drug screen [R82.5] 08/16/2018 Encounter for support and coordination of trans*05/15/2020 05/02/2021 Mild protein-calorie malnutrition (HCC) [E44.1] 08/26/2020 11/12/2021 Lumbar spondylosis [M47.816] 02/26/2021 Cervical spondylosis without myelopathy [M47.81*02/26/2021 Encounter for support and coordination of trans*05/02/2021 Other chest pain [R07.89] 10/21/2021 Stress incontinence [N39.3] 11/12/2021 Chronic active hepatitis C (HCC) [B18.2] 11/23/2021 History of colonic polyps [Z86.010] 11/23/2021 Traumatic closed nondisp torus fracture of dist*01/31/2022 Bacterial vaginosis [N76.0, B96.89] 02/02/2022 Spinal stenosis, lumbar region, without neuroge*02/24/2022 Cognitive impairment, mild, so stated [G31.84] 02/27/2022 History of cervical spinal surgery [Z98.890] 07/22/2023 Encounter Status:Closed by Jaimee FOSTER on 07/22/23 ALYSSAN Observed: 07/20/2023 12:00 AM Status: COMPLETED Source: [facility] REPOSITORY [facility] MARILUZ GARCIA ([id number]) 1970 F Date Time Provider Department 07/20/23 Jaimee PALOMARES [facility] During your visit today, we recorded the following information about you: Shira Chew, YAYA 07/20/2023 3:14 PM Signed Janette calling from [facility], to report that patient will be discharged from [facility]. [facility] is requesting orders for senior care, physical therapy, occupational therapy, and home health aide and is asking if PCP will follow? Please call Janette at [facility] at # [phone], if PCP agreeable to follow. Please review and advise. Memo Huber MD 07/20/2023 3:23 PM Signed Ok. Shira Chew, YAYA 07/20/2023 3:29 PM Signed Janette called and notified provider ok with following orders. Shira Chew RN Allergies As of Date: 07/20/2023 Noted Allergy Reaction FENTANYL 08/22/2015 14 - Other: See Comments Comments: PATCH ONLY. Respiratory distress due to rapid absorption. CHANTIX (VARENICLINE) 09/30/2016 5 - Intolerance Comments: hallucinations Date Reviewed: 05/10/2023 Reviewed by: Shruthi Contreras LPN - Fully Assessed Reason for Visit: Home Health Orders [Other] Prescriptions as of 07/20/2023 - tiotropium bromide (SPIRIVA RESPIMAT) 2.5 mcg/actuation inhaler Inhale 2 Puffs as instructed once daily. - budesonide-formoterol (SYMBICORT) 160-4.5 mcg/actuation inhaler Inhale 2 Puffs as instructed two times a day. - amLODIPine (NORVASC) 10 mg tablet Take 1 tablet by mouth once daily. - thiamine (VITAMIN B1) 100 mg tablet Take 1 tablet by mouth once daily. - mirabegron (MYRBETRIQ) 25 mg Tb24 Take 1 tablet by mouth once daily. - pregabalin (LYRICA) 150 mg capsule Take one pill three times per day - atorvastatin (LIPITOR) 40 mg tablet Take 1 tablet by mouth daily at bedtime. - ferrous sulfate 325 mg (65 mg iron) tablet Take 1 tablet by mouth two times a day. - metoprolol succinate ER (TOPROL XL) 50 mg 24 hr tablet Take 1 tablet by mouth once daily. - ibuprofen (MOTRIN) 800 mg tablet Take 1 tablet by mouth every 8 hours as needed for pain. Take with food. - cyanocobalamin (VITAMIN B-12) 1,000 mcg tab Take 1 tablet by mouth once daily. - Cholecalciferol, Vitamin D3, (VITAMIN D) 25 mcg (1,000 unit) cap Take 1 capsule by mouth once daily. - omeprazole (PRILOSEC) 20 mg capsule Take 1 capsule by mouth once daily. - L.acidophilus-L.rhamnosus (FLORAJEN WOMEN) 15 billion cell capsule Take 1 capsule by mouth once daily. - oxybutynin ER (DITROPAN XL) 10 mg 24 hr tablet TAKE 1 TABLET BY MOUTH DAILY - Blood Pressure Monitor 1 Each once daily. ICD 10 code I10 - Blood Pressure Test Kit-Medium kit 1 Each once daily. - OLANZapine (ZYPREXA) 5 mg tablet Take 1 tablet by mouth once daily. - buPROPion XL (WELLBUTRIN XL) 150 mg 24 hr tablet Take 1 tablet by mouth once daily. - traZODone (DESYREL) 150 mg tablet Take 1 tablet by mouth at bedtime as needed. - WALKER ROLLATOR SEAT WITH 6 WHEELS - RED For daily use. M54.40, G89.29 Chronic left-sided low back pain with sciatica, sciatica laterality unspecified (primary encounter diagnosis) M51.36 DDD (degenerative disc disease), lumbar M47.816 Lumbar spondylosis R26.81 Gait instability - albuterol HFA (VENTOLIN HFA) 90 mcg/actuation inhaler Inhale 2 Puffs as instructed every 4 hours as needed for wheezing/shortness of breath. - VITAMIN C 500 mg tablet - albuterol (PROVENTIL) 2.5 mg /3 mL (0.083 %) nebulizer solution Use 3 mL via nebulizer every 4 hours as needed for wheezing/shortness of breath. Use over 5-15minutes. - Nebulizers Use as directed. - levothyroxine (SYNTHROID) 25 mcg tablet Take 25 mcg by mouth daily before breakfast. - COMPOUNDED PRESCRIPTION Standard size Rollator Walker #1 Dx Large Blood Pressure Cuff #1 M51.36 DDD (degenerative disc disease), lumbar (primary encounter diagnosis) I10 Essential hypertension - COMPOUNDED PRESCRIPTION ADJUSTABLE CANE DX M51.36 Problem List As Of Date 07/20/2023 Noted Resolved Back pain [M54.9] DDD (degenerative disc disease), lumbar [M51.36] Emphysema of lung (HCC) [J43.9] Tobacco use disorder [F17.200] Hypertension [I10] GERD (gastroesophageal reflux disease) [K21.9] Carpal tunnel syndrome, bilateral [G56.03] 09/23/2015 Obesity [E66.9] Anemia [D64.9] 11/04/2015 Radiculopathy, lumbar region [M54.16] 11/05/2015 Alcohol abuse [F10.10] Chronic midline low back pain with left-sided s*04/21/2016 PE (pulmonary thromboembolism) (HCC) [I26.99] Hyperglycemia [R73.9] 07/14/2016 Stasis edema [I87.309] 07/28/2016 Right lumbar radiculopathy [M54.16] 08/11/2016 Obesity, Class III, BMI >= 40 (morbid obesity) *09/29/2016 Delusional disorder (HCC) [F22] 10/14/2016 Chronic low back pain with sciatica [M54.40, G8*06/07/2017 Abnormal echocardiogram [R93.1] 08/18/2017 Chronic left-sided low back pain with sciatica *11/29/2017 COPD (chronic obstructive pulmonary disease) wi*03/13/2018 Positive urine drug screen [R82.5] 08/16/2018 Encounter for support and coordination of trans*05/15/2020 05/02/2021 Mild protein-calorie malnutrition (HCC) [E44.1] 08/26/2020 11/12/2021 Lumbar spondylosis [M47.816] 02/26/2021 Cervical spondylosis without myelopathy [M47.81*02/26/2021 Encounter for support and coordination of trans*05/02/2021 Other chest pain [R07.89] 10/21/2021 Stress incontinence [N39.3] 11/12/2021 Chronic active hepatitis C (HCC) [B18.2] 11/23/2021 History of colonic polyps [Z86.010] 11/23/2021 Traumatic closed nondisp torus fracture of dist*01/31/2022 Bacterial vaginosis [N76.0, B96.89] 02/02/2022 Spinal stenosis, lumbar region, without neuroge*02/24/2022 Cognitive impairment, mild, so stated [G31.84] 02/27/2022 Encounter Status:Closed by SHIRA CHEW on 07/20/23 CNCO Observed: 06/21/2023 12:00 AM Status: COMPLETED Source: [facility] REPOSITORY Letter Text CNCO Observed: 06/10/2023 12:00 AM Status: COMPLETED Source: [facility] REPOSITORY Letter Text PROGRESS Observed: 06/08/2023 10:28 AM Status: COMPLETED Source: [facility] REPOSITORY HNO ID: [id number] Author: Liliam Rowell APRN.APPLIED COMPUTER SCIENCE PROFESSOR Service: ? Author Type: Nurse Practitioner Type: Progress Notes Filed: 06/08/2023 1:03 PM Note Text: This is a 53 year old female who presents today with: Patient presents with: long term follow up: zaki EVANGELISTA 06/06; transferred from [facility] HISTORY OF PRESENT ILLNESS: Mariluz Garcia is a 53 year old female. Patient presents with: long term follow up: zaki EVANGELISTA 06/06; transferred from [facility] Pt presents today for hospital/long term follow-up. Went to the hospital d/t arms and legs stopped working. Called squad to go to the ER. 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 Had C3-C5 ACDF on 05/18. Did well after surgery. Went to [facility] on 05/23 for additional rehab. [...] on her discharge medication list. Nursing called long term and verified that patient is taking metoprolol [...] care 05/15/2020 HOSPITAL/ER FOLLOW UP Which facility: [facility] Dates of visit: 05/10-05/13/2020 Preadmission evaluation: [...] of admission 05/01/2021 Date of discharge: Facility: [facility] 05/01/2021 presented to the emergency room with acute alcohol intoxication, initial alcohol level 7-8. Acknowledges over the last 5 months drinking 15 packs a day at 8% alcohol (marcin samaniego). Vital signs 96.6 F-78-18-111/73-98%. Appearance was no acute distress. WBC 7.9-Hgb 13.8-HCT 39 Encounter for support and coordination of transition of care 05/05/2022 05/05/2022 patient called squad, transported to [facility] with lightheadedness and multiple syncopal [...] autograft, fell in firepit TONSILLECTOMY AND ADENOIDECTOMY <AGE 10 1979 ALLERGIES Fentanyl and Chantix [Varenicline] MEDICATIONS Current Outpatient Medications Medication Sig ibuprofen (MOTRIN) 800 mg tablet Take 1 tablet by mouth every 8 hours as needed for pain. Take with food. cyanocobalamin (VITAMIN B-12) 1,000 mcg tab Take [...] Take 1 tablet by mouth twice daily. levothyroxine (SYNTHROID) 25 mcg tablet Take 25 mcg by mouth daily before breakfast. metoprolol succinate ER (TOPROL XL) 50 mg 24 hr tablet Take 0.5 tablets by mouth once daily. VITAMIN C 500 mg tablet albuterol (PROVENTIL) 2.5 mg /3 mL (0.083 %) nebulizer solution Use 3 mL via nebulizer every 4 hours as needed for wheezing/shortness of breath. Use over 5-15minutes. Nebulizers Use as directed. COMPOUNDED PRESCRIPTION Standard size Rollator Walker #1 Dx Large Blood Pressure Cuff #1 M51.36 DDD (degenerative disc disease), lumbar (primary encounter diagnosis) I10 Essential hypertension COMPOUNDED PRESCRIPTION ADJUSTABLE CANE DX M51.36 No current facility-administered medications for this visit. FAMILY HISTORY Problem Relation Age of Onset [...] Not Currently Drug use: Yes Types: Marijuana EXAM: BP 118/72 Pulse 67 Resp 16 SpO2 97% PHYSICAL EXAM: General Appearance: Well appearing, alert, in no acute distress, well-hydrated, well nourished.. Skin: Skin color, texture, turgor normal, no suspicious rashes or lesions. Head: Normocephalic, no masses, lesions, tenderness or abnormalities. Eyes: Anicteric sclera.. Extraocular movements are intact. . Lungs: Lungs clear to auscultation. No wheezing, rhonchi, rales.. Heart: RRR without murmur, gallop, or rubs. No ectopy. Abdomen: Abdomen soft, non-tender. Bowel sounds normal. Extremities: No deformities, edema, skin discoloration, clubbing or cyanosis. Good capillary refill. . Neurologic: Gait normal. ASSESSMENT/PLAN: 1. Neck pain - ICD9: 723.1, ICD10: M54.2 (primary diagnosis) S/p fusion. Will likely need set up with home health services for additional PT. Continue to follow-up with surgeon, as scheduled. 2. Arthrodesis status - ICD9: V45.4, ICD10: Z98.1 - NON[facility] 3. Primary hypertension - ICD9: 401.9, ICD10: I10 - Controlled - Continue current medications - Recommend home blood pressure monitoring, to bring results to next visit - Encouraged sodium restriction, DASH or Mediterranean diet - Recommend regular aerobic exercise - METOPROLOL SUCCINATE ER 50 MG TABLET,EXTENDED RELEASE 24 HR Discussed treatment plan and patient voices understanding. Patient's questions answered appropriately. Medications and potential side effects were discussed and patient voices understanding. Return to the office as scheduled or as needed for worsening/no improvement. Liliam Rowell APRN.CNP I spent a total of 35 minutes on the date of the service which included preparing to see the patient, [id number] patient care, completing clinical documentation, obtaining and/or reviewing separately obtained history, performing a medically appropriate examination, counseling and educating the patient/family/caregiver, and ordering medications, tests, or procedures. CNOV Observed: 06/08/2023 10:20 AM Status: COMPLETED Source: [facility] REPOSITORY Office Visit (FAMPWS) MARILUZ GARCIA ([id number]) 1970 F Date Time Provider Department 06/08/23 10:20 AM LILIAM ROWELL During your visit today, we recorded the following information about you: Pulse Respiration Blood pressure 67/minute 16/minute 118/72 Liliam Rowell APRN.CNP 06/08/2023 1:03 PM Signed This is a 53 year old female who presents today with: Patient presents with: long term follow up: zaki EVANGELISTA 06/06; transferred from [facility] HISTORY OF PRESENT ILLNESS: Mariluz Garcia is a 53 year old female. Patient presents with: long term follow up: zaki EVANGELISTA 06/06; transferred from [facility] Pt presents today for hospital/long term follow-up. Went to the hospital d/t arms and legs stopped working. Called squad to go to the ER. 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 Had C3-C5 ACDF on 05/18. Did well after surgery. Went to [facility] on 05/23 for additional rehab. [...] on her discharge medication list. Nursing called long term and verified that patient is taking metoprolol [...] care 05/15/2020 HOSPITAL/ER FOLLOW UP Which facility: [facility] Dates of visit: 05/10-05/13/2020 Preadmission evaluation: [...] of admission 05/01/2021 Date of discharge: Facility: [facility] 05/01/2021 presented to the emergency room with acute alcohol intoxication, initial alcohol level 7-8. Acknowledges over the last 5 months drinking 15 packs a day at 8% alcohol (marcin samaniego). Vital signs 96.6 F-78-18-111/73-98%. Appearance was no acute distress. WBC 7.9-Hgb 13.8-HCT 39 Encounter for support and coordination of transition of care 05/05/2022 05/05/2022 patient called squad, transported to [facility] with lightheadedness and multiple syncopal episodes one of them resulting in injury to her right foot. GERD (gastroesophageal reflux disease) Hyperglycemia Hypertension Lung abscess ([facility]) saw Néstor Li and Dr. Zarate. Major depression Mild protein-calorie malnutrition (HCC) 08/26/2020 Obesity PE (pulmonary thromboembolism) ([facility]) PTSD (post-traumatic stress disorder) Snoring Tobacco use [...] HX 1989's LAPAROSCOPY SURG CHOLECYSTECTOMY 05/12/2020 NEUROPLASTY AND/TRANSPOS MEDIAN [...] autograft, fell in firepit TONSILLECTOMY AND ADENOIDECTOMY <AGE 10 1979 ALLERGIES Fentanyl and Chantix [Varenicline] MEDICATIONS Current Outpatient Medications Medication Sig ibuprofen (MOTRIN) 800 mg tablet Take 1 tablet by mouth every 8 hours as needed for pain. Take with food. cyanocobalamin (VITAMIN B-12) 1,000 mcg tab Take [...] Take 1 tablet by mouth twice daily. levothyroxine (SYNTHROID) 25 mcg tablet Take 25 mcg by mouth daily before breakfast. metoprolol succinate ER (TOPROL XL) 50 mg 24 hr tablet Take 0.5 tablets by mouth once daily. VITAMIN C 500 mg tablet albuterol (PROVENTIL) 2.5 mg /3 mL (0.083 %) nebulizer solution Use 3 mL via nebulizer every 4 hours as needed for wheezing/shortness of breath. Use over 5-15minutes. Nebulizers Use as directed. COMPOUNDED PRESCRIPTION Standard size Rollator Walker #1 Dx Large Blood Pressure Cuff #1 M51.36 DDD (degenerative disc disease), lumbar (primary encounter diagnosis) I10 Essential hypertension COMPOUNDED PRESCRIPTION ADJUSTABLE CANE DX M51.36 No current facility-administered medications for this visit. FAMILY HISTORY Problem Relation Age of Onset [...] Not Currently Drug use: Yes Types: Marijuana EXAM: BP 118/72 Pulse 67 Resp 16 SpO2 97% PHYSICAL EXAM: General Appearance: Well appearing, alert, in no acute distress, well-hydrated, well nourished.. Skin: Skin color, texture, turgor normal, no suspicious rashes or lesions. Head: Normocephalic, no masses, lesions, tenderness or abnormalities. Eyes: Anicteric sclera.. Extraocular movements are intact. . Lungs: Lungs clear to auscultation. No wheezing, rhonchi, rales.. Heart: RRR without murmur, gallop, or rubs. No ectopy. Abdomen: Abdomen soft, non-tender. Bowel sounds normal. Extremities: No deformities, edema, skin discoloration, clubbing or cyanosis. Good capillary refill. . Neurologic: Gait normal. ASSESSMENT/PLAN: 1. Neck pain - ICD9: 723.1, ICD10: M54.2 (primary diagnosis) S/p fusion. Will likely need set up with home health services for additional PT. Continue to follow-up with surgeon, as scheduled. 2. Arthrodesis status - ICD9: V45.4, ICD10: Z98.1 - NON[facility] 3. Primary hypertension - ICD9: 401.9, ICD10: I10 - Controlled - Continue current medications - Recommend home blood pressure monitoring, to bring results to next visit - Encouraged sodium restriction, DASH or Mediterranean diet - Recommend regular aerobic exercise - METOPROLOL SUCCINATE ER 50 MG TABLET,EXTENDED RELEASE 24 HR Discussed treatment plan and patient voices understanding. Patient's questions answered appropriately. Medications and potential side effects were discussed and patient voices understanding. Return to the office as scheduled or as needed for worsening/no improvement. Liliam Rowell APRN.ALYSSA I spent a total of 35 minutes on the date of the service which included preparing to see the patient, [id number] patient care, completing clinical documentation, obtaining and/or reviewing separately obtained history, performing a medically appropriate examination, counseling and educating the patient/family/caregiver, and ordering medications, tests, or procedures. Allergies As of Date: 06/08/2023 Noted Allergy Reaction FENTANYL 08/22/2015 14 - Other: See Comments Comments: PATCH ONLY. Respiratory distress due to rapid absorption. CHANTIX (VARENICLINE) 09/30/2016 5 - Intolerance Comments: hallucinations Date Reviewed: 05/10/2023 Reviewed by: Shruthi Contreras LPN - Fully Assessed Reason for Visit: long term follow up [Other] Cmt: zaki EVANGELISTA 06/06; transferred from [facility] Primary Visit Diagnosis:Neck pain [M54.2] Other Visit Diagnoses:Arthrodesis status [Z98.1] Primary hypertension [I10] Order(s):metoprolol succinate ER (TOPROL XL) 50 mg 24 hr tabletTake 1 tablet by mouth once daily.Disp: 30 tabletRfl: 3 [facility] [[id number]] Order #: [id number]: 1 Prescriptions as of 06/08/2023 - metoprolol succinate ER (TOPROL XL) 50 mg 24 hr tablet Take 1 tablet by mouth once daily. - ibuprofen (MOTRIN) 800 mg tablet Take 1 tablet by mouth every 8 hours as needed for pain. Take with food. - cyanocobalamin (VITAMIN B-12) 1,000 mcg tab Take 1 tablet by mouth once daily. - Cholecalciferol, Vitamin D3, (VITAMIN D) 25 mcg (1,000 unit) cap Take 1 capsule by mouth once daily. - omeprazole (PRILOSEC) 20 mg capsule Take 1 capsule by mouth once daily. - L.acidophilus-L.rhamnosus (FLORAJEN WOMEN) 15 billion cell capsule Take 1 capsule by mouth once daily. - amLODIPine (NORVASC) 10 mg tablet Take 1 tablet by mouth once daily. - budesonide-formoterol (SYMBICORT) 160-4.5 mcg/actuation inhaler Inhale 2 Puffs as instructed twice daily. - oxybutynin ER (DITROPAN XL) 10 mg 24 hr tablet TAKE 1 TABLET BY MOUTH DAILY - atorvastatin (LIPITOR) 40 mg tablet Take 1 tablet by mouth daily at bedtime. - pregabalin (LYRICA) 150 mg capsule Take one pill three times per day - mirabegron (MYRBETRIQ) 25 mg Tb24 Take 1 tablet by mouth once daily. - thiamine (VITAMIN B1) 100 mg tablet Take 1 tablet by mouth once daily. - tiotropium bromide (SPIRIVA RESPIMAT) 2.5 mcg/actuation inhaler Inhale 2 Puffs as instructed once daily. - Blood Pressure Monitor 1 Each once daily. ICD 10 code I10 - Blood Pressure Test Kit-Medium kit 1 Each once daily. - OLANZapine (ZYPREXA) 5 mg tablet Take 1 tablet by mouth once daily. - buPROPion XL (WELLBUTRIN XL) 150 mg 24 hr tablet Take 1 tablet by mouth once daily. - traZODone (DESYREL) 150 mg tablet Take 1 tablet by mouth at bedtime as needed. - WALKER ROLLATOR SEAT WITH 6 WHEELS - RED For daily use. M54.40, G89.29 Chronic left-sided low back pain with sciatica, sciatica laterality unspecified (primary encounter diagnosis) M51.36 DDD (degenerative disc disease), lumbar M47.816 Lumbar spondylosis R26.81 Gait instability - albuterol HFA (VENTOLIN HFA) 90 mcg/actuation inhaler Inhale 2 Puffs as instructed every 4 hours as needed for wheezing/shortness of breath. - ferrous sulfate 325 mg (65 mg iron) tablet Take 1 tablet by mouth twice daily. - VITAMIN C 500 mg tablet - albuterol (PROVENTIL) 2.5 mg /3 mL (0.083 %) nebulizer solution Use 3 mL via nebulizer every 4 hours as needed for wheezing/shortness of breath. Use over 5-15minutes. - Nebulizers Use as directed. - levothyroxine (SYNTHROID) 25 mcg tablet Take 25 mcg by mouth daily before breakfast. - COMPOUNDED PRESCRIPTION Standard size Rollator Walker #1 Dx Large Blood Pressure Cuff #1 M51.36 DDD (degenerative disc disease), lumbar (primary encounter diagnosis) I10 Essential hypertension - COMPOUNDED PRESCRIPTION ADJUSTABLE CANE DX M51.36 Problem List As Of Date 06/08/2023 Noted Resolved Back pain [M54.9] DDD (degenerative disc disease), lumbar [M51.36] Emphysema of lung (HCC) [J43.9] Tobacco use disorder [F17.200] Hypertension [I10] GERD (gastroesophageal reflux disease) [K21.9] Carpal tunnel syndrome, bilateral [G56.03] 09/23/2015 Obesity [E66.9] Anemia [D64.9] 11/04/2015 Radiculopathy, lumbar region [M54.16] 11/05/2015 Alcohol abuse [F10.10] Chronic midline low back pain with left-sided s*04/21/2016 PE (pulmonary thromboembolism) (HCC) [I26.99] Hyperglycemia [R73.9] 07/14/2016 Stasis edema [I87.309] 07/28/2016 Right lumbar radiculopathy [M54.16] 08/11/2016 Obesity, Class III, BMI >= 40 (morbid obesity) *09/29/2016 Delusional disorder (HCC) [F22] 10/14/2016 Chronic low back pain with sciatica [M54.40, G8*06/07/2017 Abnormal echocardiogram [R93.1] 08/18/2017 Chronic left-sided low back pain with sciatica *11/29/2017 COPD (chronic obstructive pulmonary disease) wi*03/13/2018 Positive urine drug screen [R82.5] 08/16/2018 Encounter for support and coordination of trans*05/15/2020 05/02/2021 Mild protein-calorie malnutrition (HCC) [E44.1] 08/26/2020 11/12/2021 Lumbar spondylosis [M47.816] 02/26/2021 Cervical spondylosis without myelopathy [M47.81*02/26/2021 Encounter for support and coordination of trans*05/02/2021 07/23/2021 Other chest pain [R07.89] 10/21/2021 Stress incontinence [N39.3] 11/12/2021 Chronic active hepatitis C (HCC) [B18.2] 11/23/2021 History of colonic polyps [Z86.010] 11/23/2021 Traumatic closed nondisp torus fracture of dist*01/31/2022 Bacterial vaginosis [N76.0, B96.89] 02/02/2022 Spinal stenosis, lumbar region, without neuroge*02/24/2022 Cognitive impairment, mild, so stated [G31.84] 02/27/2022 Prescriptions ordered this encounter Disp Refills Start End METOPROLOL SUCCINATE ER 50 MG TABLET* 06/08/2023 06/08/2023 Class: Med Update Route: ORAL Sig: Take 0.5 tablets by mouth once daily. Disc: Other Cosign accepted by LILIAM ROWELL[[id number]] on 06/08/2023 1:03 PM METOPROLOL SUCCINATE ER 50 MG TABLET* 30 t* 3 06/08/2023 Route: ORAL Sig: Take 1 tablet by mouth once daily. Medications Discontinued During This Encounter Prescriptions - metoprolol succinate ER (TOPROL XL) 50 mg 24 hr tablet (Discontinued) Take 1 tablet by mouth once daily. - metoprolol succinate ER (TOPROL XL) 50 mg 24 hr tablet (Discontinued) Take 0.5 tablets by mouth once daily. Level of Service: OFFICE/OUTPATIENT ESTABLISHED MOD MDM 30-39 MIN [89293] LOS History for Encounter Encounter Status:Closed by LILIAM ROWELL on 06/08/23 CNPN Observed: 06/08/2023 12:00 AM Status: COMPLETED Source: [facility] REPOSITORY Telephone (FAMPWS) MARILUZ GARCIA ([id number]) 1970 F Date Time Provider Department 06/08/23 LILIAM ROWELL During your visit today, we recorded the following information about you: Liliam Rowell APRN.ALYSSA 06/08/2023 11:43 AM Signed Can please let patient know that we did touch base with the long term. She was taking the metoprolol 50 mg there (which is what she had been previously taking. Please stay on this dose. It looks like she actually wasn't taking prozac. Does she still follow with psychiatry? I went ahead and put the orders in for home health. Please fax to appropriate agency. Liliam Rowell APRN.Siddharth Knight LPN 06/08/2023 1:55 PM Signed Pt notified. She verbalized understanding. She will check with insurance and call office with name of HH agency she plans to use. Maribell Rojas LPN 06/08/2023 3:22 PM Signed Patient returned call and said her insurance gave her names for home health, [facility] phone [phone]; [facility] phone [phone]; [facility] phone [phone]; [facility] phone [phone]; [facility] phone [phone]. She has no idea which one to go with. Siddharth Masocrro LPN 06/10/2023 1:20 PM Signed Faxed to [facility] [phone] Allergies As of Date: 06/08/2023 Noted Allergy Reaction FENTANYL 08/22/2015 14 - Other: See Comments Comments: PATCH ONLY. Respiratory distress due to rapid absorption. CHANTIX (VARENICLINE) 09/30/2016 5 - Intolerance Comments: hallucinations Date Reviewed: 05/10/2023 Reviewed by: Shruthi Contreras LPN - Fully Assessed Prescriptions as of 06/10/2023 - metoprolol succinate ER (TOPROL XL) 50 mg 24 hr tablet Take 1 tablet by mouth once daily. - ibuprofen (MOTRIN) 800 mg tablet Take 1 tablet by mouth every 8 hours as needed for pain. Take with food. - cyanocobalamin (VITAMIN B-12) 1,000 mcg tab Take 1 tablet by mouth once daily. - Cholecalciferol, Vitamin D3, (VITAMIN D) 25 mcg (1,000 unit) cap Take 1 capsule by mouth once daily. - omeprazole (PRILOSEC) 20 mg capsule Take 1 capsule by mouth once daily. - L.acidophilus-L.rhamnosus (FLORAJEN WOMEN) 15 billion cell capsule Take 1 capsule by mouth once daily. - amLODIPine (NORVASC) 10 mg tablet Take 1 tablet by mouth once daily. - budesonide-formoterol (SYMBICORT) 160-4.5 mcg/actuation inhaler Inhale 2 Puffs as instructed twice daily. - oxybutynin ER (DITROPAN XL) 10 mg 24 hr tablet TAKE 1 TABLET BY MOUTH DAILY - atorvastatin (LIPITOR) 40 mg tablet Take 1 tablet by mouth daily at bedtime. - pregabalin (LYRICA) 150 mg capsule Take one pill three times per day - mirabegron (MYRBETRIQ) 25 mg Tb24 Take 1 tablet by mouth once daily. - thiamine (VITAMIN B1) 100 mg tablet Take 1 tablet by mouth once daily. - tiotropium bromide (SPIRIVA RESPIMAT) 2.5 mcg/actuation inhaler Inhale 2 Puffs as instructed once daily. - Blood Pressure Monitor 1 Each once daily. ICD 10 code I10 - Blood Pressure Test Kit-Medium kit 1 Each once daily. - OLANZapine (ZYPREXA) 5 mg tablet Take 1 tablet by mouth once daily. - buPROPion XL (WELLBUTRIN XL) 150 mg 24 hr tablet Take 1 tablet by mouth once daily. - traZODone (DESYREL) 150 mg tablet Take 1 tablet by mouth at bedtime as needed. - WALKER ROLLATOR SEAT WITH 6 WHEELS - RED For daily use. M54.40, G89.29 Chronic left-sided low back pain with sciatica, sciatica laterality unspecified (primary encounter diagnosis) M51.36 DDD (degenerative disc disease), lumbar M47.816 Lumbar spondylosis R26.81 Gait instability - albuterol HFA (VENTOLIN HFA) 90 mcg/actuation inhaler Inhale 2 Puffs as instructed every 4 hours as needed for wheezing/shortness of breath. - ferrous sulfate 325 mg (65 mg iron) tablet Take 1 tablet by mouth twice daily. - VITAMIN C 500 mg tablet - albuterol (PROVENTIL) 2.5 mg /3 mL (0.083 %) nebulizer solution Use 3 mL via nebulizer every 4 hours as needed for wheezing/shortness of breath. Use over 5-15minutes. - Nebulizers Use as directed. - levothyroxine (SYNTHROID) 25 mcg tablet Take 25 mcg by mouth daily before breakfast. - COMPOUNDED PRESCRIPTION Standard size Rollator Walker #1 Dx Large Blood Pressure Cuff #1 M51.36 DDD (degenerative disc disease), lumbar (primary encounter diagnosis) I10 Essential hypertension - COMPOUNDED PRESCRIPTION ADJUSTABLE CANE DX M51.36 Problem List As Of Date 06/08/2023 Noted Resolved Back pain [M54.9] DDD (degenerative disc disease), lumbar [M51.36] Emphysema of lung (HCC) [J43.9] Tobacco use disorder [F17.200] Hypertension [I10] GERD (gastroesophageal reflux disease) [K21.9] Carpal tunnel syndrome, bilateral [G56.03] 09/23/2015 Obesity [E66.9] Anemia [D64.9] 11/04/2015 Radiculopathy, lumbar region [M54.16] 11/05/2015 Alcohol abuse [F10.10] Chronic midline low back pain with left-sided s*04/21/2016 PE (pulmonary thromboembolism) (HCC) [I26.99] Hyperglycemia [R73.9] 07/14/2016 Stasis edema [I87.309] 07/28/2016 Right lumbar radiculopathy [M54.16] 08/11/2016 Obesity, Class III, BMI >= 40 (morbid obesity) *09/29/2016 Delusional disorder (HCC) [F22] 10/14/2016 Chronic low back pain with sciatica [M54.40, G8*06/07/2017 Abnormal echocardiogram [R93.1] 08/18/2017 Chronic left-sided low back pain with sciatica *11/29/2017 COPD (chronic obstructive pulmonary disease) wi*03/13/2018 Positive urine drug screen [R82.5] 08/16/2018 Encounter for support and coordination of trans*05/15/2020 05/02/2021 Mild protein-calorie malnutrition (HCC) [E44.1] 08/26/2020 11/12/2021 Lumbar spondylosis [M47.816] 02/26/2021 Cervical spondylosis without myelopathy [M47.81*02/26/2021 Encounter for support and coordination of trans*05/02/2021 07/23/2021 Other chest pain [R07.89] 10/21/2021 Stress incontinence [N39.3] 11/12/2021 Chronic active hepatitis C (HCC) [B18.2] 11/23/2021 History of colonic polyps [Z86.010] 11/23/2021 Traumatic closed nondisp torus fracture of dist*01/31/2022 Bacterial vaginosis [N76.0, B96.89] 02/02/2022 Spinal stenosis, lumbar region, without neuroge*02/24/2022 Cognitive impairment, mild, so stated [G31.84] 02/27/2022 Encounter Status:Closed by SIDDHARTH MASCORRO on 06/10/23 PROGRESS Observed: 05/26/2023 4:36 PM Status: COMPLETED Source: [facility] REPOSITORY HNO ID: [id number] Author: Dominique Garland PTA Service: ? Author Type: Cmo & President Type: Progress Notes Filed: 05/26/2023 4:36 PM Note Text: 05/26/2023 [facility] PHYSICAL THERAPY DISCONTINUANCE [...] to therapy or scheduled additional follow-up appointments. Dominique Garland PTA CNPN Observed: 05/25/2023 12:00 AM Status: COMPLETED Source: [facility] REPOSITORY Telephone (FAMPWS) BRITTONMARILUZ Christine ([id number]) 1970 F Date Time Provider Department 05/25/23 FLO MARTINO During your visit today, we recorded the following information about you: Flo Martino MD 05/25/2023 9:42 AM Signed Patient's MRI of the cervical spine ordered by our office has not been approved by her insurance. It appears she had MRI of cervical spine at [facility] on 05/16 and was hospitalized after a fall. Will cancel our order. F/u with PCP team for hospital discharge. Agustina Mai Ma 05/25/2023 9:54 AM Signed Patient notified and in nursing facility at this time Agustina Mai Ma Allergies As of Date: 05/25/2023 Noted Allergy Reaction FENTANYL 08/22/2015 14 - Other: See Comments Comments: PATCH ONLY. Respiratory distress due to rapid absorption. CHANTIX (VARENICLINE) 09/30/2016 5 - Intolerance Comments: hallucinations Date Reviewed: 05/10/2023 Reviewed by: Shruthi Contreras LPN - Fully Assessed Reason for Visit: Patient Update [1234] Prescriptions as of 05/25/2023 - ibuprofen (MOTRIN) 800 mg tablet Take 1 tablet by mouth every 8 hours as needed for pain. Take with food. - cyanocobalamin (VITAMIN B-12) 1,000 mcg tab Take 1 tablet by mouth once daily. - metoprolol succinate ER (TOPROL XL) 50 mg 24 hr tablet Take 1 tablet by mouth once daily. - Cholecalciferol, Vitamin D3, (VITAMIN D) 25 mcg (1,000 unit) cap Take 1 capsule by mouth once daily. - omeprazole (PRILOSEC) 20 mg capsule Take 1 capsule by mouth once daily. - L.acidophilus-L.rhamnosus (FLORAJEN WOMEN) 15 billion cell capsule Take 1 capsule by mouth once daily. - amLODIPine (NORVASC) 10 mg tablet Take 1 tablet by mouth once daily. - budesonide-formoterol (SYMBICORT) 160-4.5 mcg/actuation inhaler Inhale 2 Puffs as instructed twice daily. - oxybutynin ER (DITROPAN XL) 10 mg 24 hr tablet TAKE 1 TABLET BY MOUTH DAILY - atorvastatin (LIPITOR) 40 mg tablet Take 1 tablet by mouth daily at bedtime. - pregabalin (LYRICA) 150 mg capsule Take one pill three times per day - mirabegron (MYRBETRIQ) 25 mg Tb24 Take 1 tablet by mouth once daily. - thiamine (VITAMIN B1) 100 mg tablet Take 1 tablet by mouth once daily. - tiotropium bromide (SPIRIVA RESPIMAT) 2.5 mcg/actuation inhaler Inhale 2 Puffs as instructed once daily. - Blood Pressure Monitor 1 Each once daily. ICD 10 code I10 - Blood Pressure Test Kit-Medium kit 1 Each once daily. - OLANZapine (ZYPREXA) 5 mg tablet Take 1 tablet by mouth once daily. - buPROPion XL (WELLBUTRIN XL) 150 mg 24 hr tablet Take 1 tablet by mouth once daily. - traZODone (DESYREL) 150 mg tablet Take 1 tablet by mouth at bedtime as needed. - WALKER ROLLATOR SEAT WITH 6 WHEELS - RED For daily use. M54.40, G89.29 Chronic left-sided low back pain with sciatica, sciatica laterality unspecified (primary encounter diagnosis) M51.36 DDD (degenerative disc disease), lumbar M47.816 Lumbar spondylosis R26.81 Gait instability - albuterol HFA (VENTOLIN HFA) 90 mcg/actuation inhaler Inhale 2 Puffs as instructed every 4 hours as needed for wheezing/shortness of breath. - ferrous sulfate 325 mg (65 mg iron) tablet Take 1 tablet by mouth twice daily. - VITAMIN C 500 mg tablet - albuterol (PROVENTIL) 2.5 mg /3 mL (0.083 %) nebulizer solution Use 3 mL via nebulizer every 4 hours as needed for wheezing/shortness of breath. Use over 5-15minutes. - Nebulizers Use as directed. - levothyroxine (SYNTHROID) 25 mcg tablet Take 25 mcg by mouth daily before breakfast. - COMPOUNDED PRESCRIPTION Standard size Rollator Walker #1 Dx Large Blood Pressure Cuff #1 M51.36 DDD (degenerative disc disease), lumbar (primary encounter diagnosis) I10 Essential hypertension - COMPOUNDED PRESCRIPTION ADJUSTABLE CANE DX M51.36 Problem List As Of Date 05/25/2023 Noted Resolved Back pain [M54.9] DDD (degenerative disc disease), lumbar [M51.36] Emphysema of lung (HCC) [J43.9] Tobacco use disorder [F17.200] Hypertension [I10] GERD (gastroesophageal reflux disease) [K21.9] Carpal tunnel syndrome, bilateral [G56.03] 09/23/2015 Obesity [E66.9] Anemia [D64.9] 11/04/2015 Radiculopathy, lumbar region [M54.16] 11/05/2015 Alcohol abuse [F10.10] Chronic midline low back pain with left-sided s*04/21/2016 PE (pulmonary thromboembolism) (HCC) [I26.99] Hyperglycemia [R73.9] 07/14/2016 Stasis edema [I87.309] 07/28/2016 Right lumbar radiculopathy [M54.16] 08/11/2016 Obesity, Class III, BMI >= 40 (morbid obesity) *09/29/2016 Delusional disorder (HCC) [F22] 10/14/2016 Chronic low back pain with sciatica [M54.40, G8*06/07/2017 Abnormal echocardiogram [R93.1] 08/18/2017 Chronic left-sided low back pain with sciatica *11/29/2017 COPD (chronic obstructive pulmonary disease) wi*03/13/2018 Positive urine drug screen [R82.5] 08/16/2018 Encounter for support and coordination of trans*05/15/2020 05/02/2021 Mild protein-calorie malnutrition (HCC) [E44.1] 08/26/2020 11/12/2021 Lumbar spondylosis [M47.816] 02/26/2021 Cervical spondylosis without myelopathy [M47.81*02/26/2021 Encounter for support and coordination of trans*05/02/2021 07/23/2021 Other chest pain [R07.89] 10/21/2021 Stress incontinence [N39.3] 11/12/2021 Chronic active hepatitis C (HCC) [B18.2] 11/23/2021 History of colonic polyps [Z86.010] 11/23/2021 Traumatic closed nondisp torus fracture of dist*01/31/2022 Bacterial vaginosis [N76.0, B96.89] 02/02/2022 Spinal stenosis, lumbar region, without neuroge*02/24/2022 Cognitive impairment, mild, so stated [G31.84] 02/27/2022 Encounter Status:Closed by AGUSTINA MAI MA on 05/25/23 ALYSSAN Observed: 05/18/2023 12:00 AM Status: COMPLETED Source: [facility] REPOSITORY [facility] MARILUZ GARCIA ([id number]) 1970 F Date Time Provider Department 05/18/23 Jaimee [facility] During your visit today, we recorded the following information about you: Siddharth Mascorro 05/18/2023 9:26 AM Signed Type of form: CMN/Incontinence Order Form from [facility] Form received via fax When form is completed, Fax form to [phone] Form has been forwarded to Provider Mailbox: ALEIDA Diane Tara LPN 05/18/2023 1:12 PM Signed Forms to providers desk to review and complete. Bharti Perry Ma 05/20/2023 10:48 AM Signed Completed forms faxed Allergies As of Date: 05/18/2023 Noted Allergy Reaction FENTANYL 08/22/2015 14 - Other: See Comments Comments: PATCH ONLY. Respiratory distress due to rapid absorption. CHANTIX (VARENICLINE) 09/30/2016 5 - Intolerance Comments: hallucinations Date Reviewed: 05/10/2023 Reviewed by: Shruthi Contreras LPN - Fully Assessed Reason for Visit: Forms [913] Prescriptions as of 05/20/2023 - ibuprofen (MOTRIN) 800 mg tablet Take 1 tablet by mouth every 8 hours as needed for pain. Take with food. - cyanocobalamin (VITAMIN B-12) 1,000 mcg tab Take 1 tablet by mouth once daily. - metoprolol succinate ER (TOPROL XL) 50 mg 24 hr tablet Take 1 tablet by mouth once daily. - Cholecalciferol, Vitamin D3, (VITAMIN D) 25 mcg (1,000 unit) cap Take 1 capsule by mouth once daily. - omeprazole (PRILOSEC) 20 mg capsule Take 1 capsule by mouth once daily. - L.acidophilus-L.rhamnosus (FLORAJEN WOMEN) 15 billion cell capsule Take 1 capsule by mouth once daily. - amLODIPine (NORVASC) 10 mg tablet Take 1 tablet by mouth once daily. - budesonide-formoterol (SYMBICORT) 160-4.5 mcg/actuation inhaler Inhale 2 Puffs as instructed twice daily. - oxybutynin ER (DITROPAN XL) 10 mg 24 hr tablet TAKE 1 TABLET BY MOUTH DAILY - atorvastatin (LIPITOR) 40 mg tablet Take 1 tablet by mouth daily at bedtime. - pregabalin (LYRICA) 150 mg capsule Take one pill three times per day - mirabegron (MYRBETRIQ) 25 mg Tb24 Take 1 tablet by mouth once daily. - thiamine (VITAMIN B1) 100 mg tablet Take 1 tablet by mouth once daily. - tiotropium bromide (SPIRIVA RESPIMAT) 2.5 mcg/actuation inhaler Inhale 2 Puffs as instructed once daily. - Blood Pressure Monitor 1 Each once daily. ICD 10 code I10 - Blood Pressure Test Kit-Medium kit 1 Each once daily. - OLANZapine (ZYPREXA) 5 mg tablet Take 1 tablet by mouth once daily. - buPROPion XL (WELLBUTRIN XL) 150 mg 24 hr tablet Take 1 tablet by mouth once daily. - traZODone (DESYREL) 150 mg tablet Take 1 tablet by mouth at bedtime as needed. - WALKER ROLLATOR SEAT WITH 6 WHEELS - RED For daily use. M54.40, G89.29 Chronic left-sided low back pain with sciatica, sciatica laterality unspecified (primary encounter diagnosis) M51.36 DDD (degenerative disc disease), lumbar M47.816 Lumbar spondylosis R26.81 Gait instability - albuterol HFA (VENTOLIN HFA) 90 mcg/actuation inhaler Inhale 2 Puffs as instructed every 4 hours as needed for wheezing/shortness of breath. - ferrous sulfate 325 mg (65 mg iron) tablet Take 1 tablet by mouth twice daily. - VITAMIN C 500 mg tablet - albuterol (PROVENTIL) 2.5 mg /3 mL (0.083 %) nebulizer solution Use 3 mL via nebulizer every 4 hours as needed for wheezing/shortness of breath. Use over 5-15minutes. - Nebulizers Use as directed. - levothyroxine (SYNTHROID) 25 mcg tablet Take 25 mcg by mouth daily before breakfast. - COMPOUNDED PRESCRIPTION Standard size Rollator Walker #1 Dx Large Blood Pressure Cuff #1 M51.36 DDD (degenerative disc disease), lumbar (primary encounter diagnosis) I10 Essential hypertension - COMPOUNDED PRESCRIPTION ADJUSTABLE CANE DX M51.36 Problem List As Of Date 05/18/2023 Noted Resolved Back pain [M54.9] DDD (degenerative disc disease), lumbar [M51.36] Emphysema of lung (HCC) [J43.9] Tobacco use disorder [F17.200] Hypertension [I10] GERD (gastroesophageal reflux disease) [K21.9] Carpal tunnel syndrome, bilateral [G56.03] 09/23/2015 Obesity [E66.9] Anemia [D64.9] 11/04/2015 Radiculopathy, lumbar region [M54.16] 11/05/2015 Alcohol abuse [F10.10] Chronic midline low back pain with left-sided s*04/21/2016 PE (pulmonary thromboembolism) (HCC) [I26.99] Hyperglycemia [R73.9] 07/14/2016 Stasis edema [I87.309] 07/28/2016 Right lumbar radiculopathy [M54.16] 08/11/2016 Obesity, Class III, BMI >= 40 (morbid obesity) *09/29/2016 Delusional disorder (HCC) [F22] 10/14/2016 Chronic low back pain with sciatica [M54.40, G8*06/07/2017 Abnormal echocardiogram [R93.1] 08/18/2017 Chronic left-sided low back pain with sciatica *11/29/2017 COPD (chronic obstructive pulmonary disease) wi*03/13/2018 Positive urine drug screen [R82.5] 08/16/2018 Encounter for support and coordination of trans*05/15/2020 05/02/2021 Mild protein-calorie malnutrition (HCC) [E44.1] 08/26/2020 11/12/2021 Lumbar spondylosis [M47.816] 02/26/2021 Cervical spondylosis without myelopathy [M47.81*02/26/2021 Encounter for support and coordination of trans*05/02/2021 07/23/2021 Other chest pain [R07.89] 10/21/2021 Stress incontinence [N39.3] 11/12/2021 Chronic active hepatitis C (HCC) [B18.2] 11/23/2021 History of colonic polyps [Z86.010] 11/23/2021 Traumatic closed nondisp torus fracture of dist*01/31/2022 Bacterial vaginosis [N76.0, B96.89] 02/02/2022 Spinal stenosis, lumbar region, without neuroge*02/24/2022 Cognitive impairment, mild, so stated [G31.84] 02/27/2022 Encounter Status:Closed by BHARTI PERRY MA on 05/20/23 NURIA Observed: 05/10/2023 11:20 AM Status: COMPLETED Source: [facility] REPOSITORY Office Visit (FAMPWS) MARILUZ GARCIA ([id number]) 1970 F Date Time Provider Department 05/10/23 11:20 AM FLO MARTINO FAMPWS During your visit today, we recorded the following information about you: Pulse Respiration Blood pressure 67/minute 20/minute 118/70 Flo Martino MD 05/11/2023 4:49 PM Signed Chief Complaint Patient presents with: ER F/U: Numbness and tingling in Bilateral hands HPI Mariluz Garcia is a 53 year old female who presents here today for ER Follow Up.. Patient evaluated at [facility] ED on 04/29 for complaint of [...] care 05/15/2020 HOSPITAL/ER FOLLOW UP Which facility: [facility] Dates of visit: 05/10-05/13/2020 Preadmission evaluation: [...] of admission 05/01/2021 Date of discharge: Facility: [facility] 05/01/2021 presented to the emergency room with acute alcohol intoxication, initial alcohol level 7-8. Acknowledges over the last 5 months drinking 15 packs a day at 8% alcohol (natty daddy). Vital signs 96.6 F-78-18-111/73-98%. Appearance was no acute distress. WBC 7.9-Hgb 13.8-HCT 39 Encounter for support and coordination of transition of care 05/05/2022 05/05/2022 patient called squad, transported to [facility] with lightheadedness and multiple syncopal episodes one of them resulting in injury to her right foot. GERD (gastroesophageal reflux disease) Hyperglycemia Hypertension Lung abscess ([facility]) saw Néstor Li and Dr. Zarate. Major depression Mild protein-calorie malnutrition ([facility]) 08/26/2020 Obesity PE (pulmonary thromboembolism) ([facility]) PTSD (post-traumatic stress disorder) Snoring Tobacco use [...] autograft, fell in firepit TONSILLECTOMY AND ADENOIDECTOMY <AGE 10 1977 Family History FAMILY [...] swelling, deformity, or tenderness. Neurologic: 4/5 manager mutual fund strength bilaterally. 5/5 strength in arms. Decreased [...] CERVICAL SPINE WO IVCON Flo Martino MD Referring Provider: SELF [200] Allergies As of Date: 05/10/2023 Noted Allergy Reaction FENTANYL 08/22/2015 14 - Other: See Comments Comments: PATCH ONLY. Respiratory distress due to rapid absorption. CHANTIX (VARENICLINE) 09/30/2016 5 - Intolerance Comments: hallucinations Date Reviewed: 05/10/2023 Reviewed by: Shruthi Contreras LPN - Fully Assessed Reason for Visit: ER F/U [41] Cmt: Numbness and tingling in Bilateral hands Primary Visit Diagnosis:Weakness of both hands [R29.898] Other Visit Diagnoses:Numbness and tingling in both hands [R20.0, R20.2] Complaining of cold hands [R20.8] Order(s):EMG(NEURO/NI) [[id number]] Order #: [id number]: 1 FUTURE US ARM ARTERIAL [facility] [[id number]] Order #: [id number] FUTURE MRI CERVICAL SPINE WO IVCON [[id number]] Order #: [id number] FUTURE Prescriptions as of 05/11/2023 - ibuprofen (MOTRIN) 800 mg tablet Take 1 tablet by mouth every 8 hours as needed for pain. Take with food. - cyanocobalamin (VITAMIN B-12) 1,000 mcg tab Take 1 tablet by mouth once daily. - metoprolol succinate ER (TOPROL XL) 50 mg 24 hr tablet Take 1 tablet by mouth once daily. - Cholecalciferol, Vitamin D3, (VITAMIN D) 25 mcg (1,000 unit) cap Take 1 capsule by mouth once daily. - omeprazole (PRILOSEC) 20 mg capsule Take 1 capsule by mouth once daily. - L.acidophilus-L.rhamnosus (FLORAJEN WOMEN) 15 billion cell capsule Take 1 capsule by mouth once daily. - amLODIPine (NORVASC) 10 mg tablet Take 1 tablet by mouth once daily. - budesonide-formoterol (SYMBICORT) 160-4.5 mcg/actuation inhaler Inhale 2 Puffs as instructed twice daily. - oxybutynin ER (DITROPAN XL) 10 mg 24 hr tablet TAKE 1 TABLET BY MOUTH DAILY - atorvastatin (LIPITOR) 40 mg tablet Take 1 tablet by mouth daily at bedtime. - pregabalin (LYRICA) 150 mg capsule Take one pill three times per day - mirabegron (MYRBETRIQ) 25 mg Tb24 Take 1 tablet by mouth once daily. - thiamine (VITAMIN B1) 100 mg tablet Take 1 tablet by mouth once daily. - tiotropium bromide (SPIRIVA RESPIMAT) 2.5 mcg/actuation inhaler Inhale 2 Puffs as instructed once daily. - Blood Pressure Monitor 1 Each once daily. ICD 10 code I10 - Blood Pressure Test Kit-Medium kit 1 Each once daily. - OLANZapine (ZYPREXA) 5 mg tablet Take 1 tablet by mouth once daily. - buPROPion XL (WELLBUTRIN XL) 150 mg 24 hr tablet Take 1 tablet by mouth once daily. - traZODone (DESYREL) 150 mg tablet Take 1 tablet by mouth at bedtime as needed. - WALKER ROLLATOR SEAT WITH 6 WHEELS - RED For daily use. M54.40, G89.29 Chronic left-sided low back pain with sciatica, sciatica laterality unspecified (primary encounter diagnosis) M51.36 DDD (degenerative disc disease), lumbar M47.816 Lumbar spondylosis R26.81 Gait instability - albuterol HFA (VENTOLIN HFA) 90 mcg/actuation inhaler Inhale 2 Puffs as instructed every 4 hours as needed for wheezing/shortness of breath. - ferrous sulfate 325 mg (65 mg iron) tablet Take 1 tablet by mouth twice daily. - VITAMIN C 500 mg tablet - albuterol (PROVENTIL) 2.5 mg /3 mL (0.083 %) nebulizer solution Use 3 mL via nebulizer every 4 hours as needed for wheezing/shortness of breath. Use over 5-15minutes. - Nebulizers Use as directed. - levothyroxine (SYNTHROID) 25 mcg tablet Take 25 mcg by mouth daily before breakfast. - COMPOUNDED PRESCRIPTION Standard size Rollator Walker #1 Dx Large Blood Pressure Cuff #1 M51.36 DDD (degenerative disc disease), lumbar (primary encounter diagnosis) I10 Essential hypertension - COMPOUNDED PRESCRIPTION ADJUSTABLE CANE DX M51.36 Problem List As Of Date 05/10/2023 Noted Resolved Back pain [M54.9] DDD (degenerative disc disease), lumbar [M51.36] Emphysema of lung (HCC) [J43.9] Tobacco use disorder [F17.200] Hypertension [I10] GERD (gastroesophageal reflux disease) [K21.9] Carpal tunnel syndrome, bilateral [G56.03] 09/23/2015 Obesity [E66.9] Anemia [D64.9] 11/04/2015 Radiculopathy, lumbar region [M54.16] 11/05/2015 Alcohol abuse [F10.10] Chronic midline low back pain with left-sided s*04/21/2016 PE (pulmonary thromboembolism) (HCC) [I26.99] Hyperglycemia [R73.9] 07/14/2016 Stasis edema [I87.309] 07/28/2016 Right lumbar radiculopathy [M54.16] 08/11/2016 Obesity, Class III, BMI >= 40 (morbid obesity) *09/29/2016 Delusional disorder (HCC) [F22] 10/14/2016 Chronic low back pain with sciatica [M54.40, G8*06/07/2017 Abnormal echocardiogram [R93.1] 08/18/2017 Chronic left-sided low back pain with sciatica *11/29/2017 COPD (chronic obstructive pulmonary disease) wi*03/13/2018 Positive urine drug screen [R82.5] 08/16/2018 Encounter for support and coordination of trans*05/15/2020 05/02/2021 Mild protein-calorie malnutrition (HCC) [E44.1] 08/26/2020 11/12/2021 Lumbar spondylosis [M47.816] 02/26/2021 Cervical spondylosis without myelopathy [M47.81*02/26/2021 Encounter for support and coordination of trans*05/02/2021 07/23/2021 Other chest pain [R07.89] 10/21/2021 Stress incontinence [N39.3] 11/12/2021 Chronic active hepatitis C (HCC) [B18.2] 11/23/2021 History of colonic polyps [Z86.010] 11/23/2021 Traumatic closed nondisp torus fracture of dist*01/31/2022 Bacterial vaginosis [N76.0, B96.89] 02/02/2022 Spinal stenosis, lumbar region, without neuroge*02/24/2022 Cognitive impairment, mild, so stated [G31.84] 02/27/2022 Encounter Status:Closed by FLO MARTINO on 05/11/23 PROGRESS Observed: 05/10/2023 11:12 AM Status: COMPLETED Source: [facility] REPOSITORY O ID: [id number] Author: Flo Martino MD Service: ? Author Type: Physician Type: Progress Notes Filed: 05/11/2023 4:49 PM Note Text: Chief Complaint Patient presents with: ER F/U: Numbness and tingling in Bilateral hands HPI Mariluz Garcia is a 53 year old female who presents here today for ER Follow Up.. Patient evaluated at [facility] ED on 04/29 for complaint of [...] care 05/15/2020 HOSPITAL/ER FOLLOW UP Which facility: [facility] Dates of visit: 05/10-05/13/2020 Preadmission evaluation: [...] of admission 05/01/2021 Date of discharge: Facility: [facility] 05/01/2021 presented to the emergency room with acute alcohol intoxication, initial alcohol level 7-8. Acknowledges over the last 5 months drinking 15 packs a day at 8% alcohol (marcin samaniego). Vital signs 96.6 F-78-18-111/73-98%. Appearance was no acute distress. WBC 7.9-Hgb 13.8-HCT 39 Encounter for support and coordination of transition of care 05/05/2022 05/05/2022 patient called squad, transported to [facility] with lightheadedness and multiple syncopal episodes one of them resulting in injury to her right foot. GERD (gastroesophageal reflux disease) Hyperglycemia Hypertension Lung abscess ([facility]) saw Néstor Li and Dr. Zarate. Major depression Mild protein-calorie malnutrition (HCC) 08/26/2020 Obesity PE (pulmonary thromboembolism) ([facility]) PTSD (post-traumatic stress disorder) Snoring Tobacco use [...] autograft, fell in firepit TONSILLECTOMY AND ADENOIDECTOMY <AGE 10 1979 Family History FAMILY [...] swelling, deformity, or tenderness. Neurologic: 4/5 manager mutual fund strength bilaterally. 5/5 strength in arms. Decreased [...] CERVICAL SPINE WO IVCON Flo Martino MD PROGRESS Observed: 03/11/2023 1:22 PM Status: COMPLETED Source: [facility] REPOSITORY HNO ID: [id number] Author: Dominique Garland PTA Service: ? Author Type: Cmo & President Type: Progress Notes Filed: 03/11/2023 1:25 PM [...] on stairs Entered the pool assist level: [place], With rail Aquatic Therapy (15237): Walking, Lower Extremity, Stretching and Flexibility, Vertical / Denbo - Buoyancy Supported Walking: Forward Walking, Lateral/ Side Stepping Water Turbulence: #1 Forward Walking: x5 Lateral/Side Stepping: x5 Lower Extremity: Hip Flexion, Hip Extension, Hip Abduction, Hip Circumduction Hip Flexion: 2x10 Hip Extension: 2x10 Hip Abduction: 2x10 Hip Circumduction: 5/5ea Vertical/Denbo - Buoyancy Supported : Hip Abduction/ Adduction, [...] : 1230 Session Stop Time : 1322 Dominique Garland PTA CNTHERAPY Observed: 03/11/2023 12:15 PM Status: COMPLETED Source: [facility] REPOSITORY OT/PT/Speech Visit (AKPTB) MARILUZ GARCIA ([id number]) 1970 F Date Time Provider Department 03/11/23 12:15 PM DOMINIQUE GARLAND Date Time Provider Department Center 03/11/2023 12:15 PM [id number] Reason for Visit: Physical Therapy [503] PT Discharge [752] Primary Visit Diagnosis:Primary osteoarthritis of right hip [M16.11] Other Visit Diagnosis:Lumbar radiculopathy [M54.16] Allergies As of Date: 03/11/2023 Noted Allergy Reaction FENTANYL 08/22/2015 14 - Other: See Comments Comments: PATCH ONLY. Respiratory distress due to rapid absorption. CHANTIX (VARENICLINE) 09/30/2016 5 - Intolerance Comments: hallucinations Date Reviewed: 02/14/2023 Reviewed by: Bria Burton MA - Fully Assessed Prescriptions as of 05/26/2023 - ibuprofen (MOTRIN) 800 mg tablet Take 1 tablet by mouth every 8 hours as needed for pain. Take with food. - cyanocobalamin (VITAMIN B-12) 1,000 mcg tab Take 1 tablet by mouth once daily. - metoprolol succinate ER (TOPROL XL) 50 mg 24 hr tablet Take 1 tablet by mouth once daily. - Cholecalciferol, Vitamin D3, (VITAMIN D) 25 mcg (1,000 unit) cap Take 1 capsule by mouth once daily. - omeprazole (PRILOSEC) 20 mg capsule Take 1 capsule by mouth once daily. - L.acidophilus-L.rhamnosus (FLORAJEN WOMEN) 15 billion cell capsule Take 1 capsule by mouth once daily. - amLODIPine (NORVASC) 10 mg tablet Take 1 tablet by mouth once daily. - budesonide-formoterol (SYMBICORT) 160-4.5 mcg/actuation inhaler Inhale 2 Puffs as instructed twice daily. - oxybutynin ER (DITROPAN XL) 10 mg 24 hr tablet TAKE 1 TABLET BY MOUTH DAILY - atorvastatin (LIPITOR) 40 mg tablet Take 1 tablet by mouth daily at bedtime. - pregabalin (LYRICA) 150 mg capsule Take one pill three times per day - mirabegron (MYRBETRIQ) 25 mg Tb24 Take 1 tablet by mouth once daily. - thiamine (VITAMIN B1) 100 mg tablet Take 1 tablet by mouth once daily. - tiotropium bromide (SPIRIVA RESPIMAT) 2.5 mcg/actuation inhaler Inhale 2 Puffs as instructed once daily. - Blood Pressure Monitor 1 Each once daily. ICD 10 code I10 - Blood Pressure Test Kit-Medium kit 1 Each once daily. - OLANZapine (ZYPREXA) 5 mg tablet Take 1 tablet by mouth once daily. - buPROPion XL (WELLBUTRIN XL) 150 mg 24 hr tablet Take 1 tablet by mouth once daily. - traZODone (DESYREL) 150 mg tablet Take 1 tablet by mouth at bedtime as needed. - WALKER ROLLATOR SEAT WITH 6 WHEELS - RED For daily use. M54.40, G89.29 Chronic left-sided low back pain with sciatica, sciatica laterality unspecified (primary encounter diagnosis) M51.36 DDD (degenerative disc disease), lumbar M47.816 Lumbar spondylosis R26.81 Gait instability - albuterol HFA (VENTOLIN HFA) 90 mcg/actuation inhaler Inhale 2 Puffs as instructed every 4 hours as needed for wheezing/shortness of breath. - ferrous sulfate 325 mg (65 mg iron) tablet Take 1 tablet by mouth twice daily. - VITAMIN C 500 mg tablet - albuterol (PROVENTIL) 2.5 mg /3 mL (0.083 %) nebulizer solution Use 3 mL via nebulizer every 4 hours as needed for wheezing/shortness of breath. Use over 5-15minutes. - Nebulizers Use as directed. - levothyroxine (SYNTHROID) 25 mcg tablet Take 25 mcg by mouth daily before breakfast. - COMPOUNDED PRESCRIPTION Standard size Rollator Walker #1 Dx Large Blood Pressure Cuff #1 M51.36 DDD (degenerative disc disease), lumbar (primary encounter diagnosis) I10 Essential hypertension - COMPOUNDED PRESCRIPTION ADJUSTABLE CANE DX M51.36 CNPN Observed: 03/02/2023 12:00 AM Status: COMPLETED Source: [facility] REPOSITORY Telephone ([facility]) MARILUZ GARCIA ([id number]) 1970 F Date Time Provider Department 03/02/23 Jaimee PALOMARES [facility] During your visit today, we recorded the following information about you: Siddharth Mascorro LPN 03/02/2023 2:16 PM Signed Type of form: DME Form received via fax When form is completed, Fax form to [phone] Form has been forwarded to Physician Mailbox: James Alejo LPN, LPN 03/09/2023 1:26 PM Signed Completed and faxed. Allergies As of Date: 03/02/2023 Noted Allergy Reaction FENTANYL 08/22/2015 14 - Other: See Comments Comments: PATCH ONLY. Respiratory distress due to rapid absorption. CHANTIX (VARENICLINE) 09/30/2016 5 - Intolerance Comments: hallucinations Date Reviewed: 02/14/2023 Reviewed by: Bria Burton MA - Fully Assessed Prescriptions as of 03/09/2023 - metoprolol succinate ER (TOPROL XL) 50 mg 24 hr tablet Take 1 tablet by mouth once daily. - diclofenac (VOLTAREN ARTHRITIS PAIN) 1 % topical gel Apply 2 g to affected area twice daily as needed. - Cholecalciferol, Vitamin D3, (VITAMIN D) 25 mcg (1,000 unit) cap Take 1 capsule by mouth once daily. - omeprazole (PRILOSEC) 20 mg capsule Take 1 capsule by mouth once daily. - L.acidophilus-L.rhamnosus (FLORAJEN WOMEN) 15 billion cell capsule Take 1 capsule by mouth once daily. - ibuprofen (MOTRIN) 800 mg tablet Take 1 tablet by mouth every 8 hours as needed for pain. Take with food. - amLODIPine (NORVASC) 10 mg tablet Take 1 tablet by mouth once daily. - budesonide-formoterol (SYMBICORT) 160-4.5 mcg/actuation inhaler Inhale 2 Puffs as instructed twice daily. - oxybutynin ER (DITROPAN XL) 10 mg 24 hr tablet TAKE 1 TABLET BY MOUTH DAILY - atorvastatin (LIPITOR) 40 mg tablet Take 1 tablet by mouth daily at bedtime. - pregabalin (LYRICA) 150 mg capsule Take one pill three times per day - mirabegron (MYRBETRIQ) 25 mg Tb24 Take 1 tablet by mouth once daily. - thiamine (VITAMIN B1) 100 mg tablet Take 1 tablet by mouth once daily. - tiotropium bromide (SPIRIVA RESPIMAT) 2.5 mcg/actuation inhaler Inhale 2 Puffs as instructed once daily. - Blood Pressure Monitor 1 Each once daily. ICD 10 code I10 - Blood Pressure Test Kit-Medium kit 1 Each once daily. - cyanocobalamin (VITAMIN B-12) 1,000 mcg tab Take 1 tablet by mouth once daily. - OLANZapine (ZYPREXA) 5 mg tablet Take 1 tablet by mouth once daily. - buPROPion XL (WELLBUTRIN XL) 150 mg 24 hr tablet Take 1 tablet by mouth once daily. - traZODone (DESYREL) 150 mg tablet Take 1 tablet by mouth at bedtime as needed. - WALKER ROLLATOR SEAT WITH 6 WHEELS - RED For daily use. M54.40, G89.29 Chronic left-sided low back pain with sciatica, sciatica laterality unspecified (primary encounter diagnosis) M51.36 DDD (degenerative disc disease), lumbar M47.816 Lumbar spondylosis R26.81 Gait instability - albuterol HFA (VENTOLIN HFA) 90 mcg/actuation inhaler Inhale 2 Puffs as instructed every 4 hours as needed for wheezing/shortness of breath. - ferrous sulfate 325 mg (65 mg iron) tablet Take 1 tablet by mouth twice daily. - VITAMIN C 500 mg tablet - albuterol (PROVENTIL) 2.5 mg /3 mL (0.083 %) nebulizer solution Use 3 mL via nebulizer every 4 hours as needed for wheezing/shortness of breath. Use over 5-15minutes. - Nebulizers Use as directed. - levothyroxine (SYNTHROID) 25 mcg tablet Take 25 mcg by mouth daily before breakfast. - COMPOUNDED PRESCRIPTION Standard size Rollator Walker #1 Dx Large Blood Pressure Cuff #1 M51.36 DDD (degenerative disc disease), lumbar (primary encounter diagnosis) I10 Essential hypertension - COMPOUNDED PRESCRIPTION ADJUSTABLE CANE DX M51.36 Problem List As Of Date 03/02/2023 Noted Resolved Back pain [M54.9] DDD (degenerative disc disease), lumbar [M51.36] Emphysema of lung (HCC) [J43.9] Tobacco use disorder [F17.200] Hypertension [I10] GERD (gastroesophageal reflux disease) [K21.9] Carpal tunnel syndrome, bilateral [G56.03] 09/23/2015 Obesity [E66.9] Anemia [D64.9] 11/04/2015 Radiculopathy, lumbar region [M54.16] 11/05/2015 Alcohol abuse [F10.10] Chronic midline low back pain with left-sided s*04/21/2016 PE (pulmonary thromboembolism) (HCC) [I26.99] Hyperglycemia [R73.9] 07/14/2016 Stasis edema [I87.309] 07/28/2016 Right lumbar radiculopathy [M54.16] 08/11/2016 Obesity, Class III, BMI >= 40 (morbid obesity) *09/29/2016 Delusional disorder (HCC) [F22] 10/14/2016 Chronic low back pain with sciatica [M54.40, G8*06/07/2017 Abnormal echocardiogram [R93.1] 08/18/2017 Chronic left-sided low back pain with sciatica *11/29/2017 COPD (chronic obstructive pulmonary disease) wi*03/13/2018 Positive urine drug screen [R82.5] 08/16/2018 Encounter for support and coordination of trans*05/15/2020 05/02/2021 Mild protein-calorie malnutrition (HCC) [E44.1] 08/26/2020 11/12/2021 Lumbar spondylosis [M47.816] 02/26/2021 Cervical spondylosis without myelopathy [M47.81*02/26/2021 Encounter for support and coordination of trans*05/02/2021 07/23/2021 Other chest pain [R07.89] 10/21/2021 Stress incontinence [N39.3] 11/12/2021 Chronic active hepatitis C (HCC) [B18.2] 11/23/2021 History of colonic polyps [Z86.010] 11/23/2021 Traumatic closed nondisp torus fracture of dist*01/31/2022 Bacterial vaginosis [N76.0, B96.89] 02/02/2022 Spinal stenosis, lumbar region, without neuroge*02/24/2022 Cognitive impairment, mild, so stated [G31.84] 02/27/2022 Encounter Status:Closed by JAMES HUANG LPN on 03/09/23 CNTHERAPY Observed: 02/16/2023 8:45 AM Status: COMPLETED Source: [facility] REPOSITORY OT/PT/Speech Visit (AKPTB) MARILUZ GARCIA ([id number]) 1970 F Date Time Provider Department 02/16/23 8:45 AM ANAY ESTEBAN During your visit today, we recorded the following information about you: Anay Etseban, PT 02/16/2023 9:41 AM Signed Episode Visit Count: 1 Therapist That Will [...] up without use of hands on thighs [place] in home exercise program. Perform ADL's with decreased report of symptoms/pain in 6-8 weeks. Increased strength of (B) LE's by one full MMT grade or better Patient Goals: decreasde pain and improved function Planned Interventions, Frequency, and Duration: Current Frequency: 2x/week Duration: 8 weeks Total Number of Visits Planned: 16 Planned Treatment Interventions: Aquatic PT (01222), Therapeutic exercise (51271), Neuromuscular re-education (90895), Manual therapy (97258), Therapeutic activities (54313), Self-fpc management (00693), Gait Training (02882), Group Therapy (35238) PLAN FOR NEXT VISIT: begin aquatic therapy Patient demonstrates good understanding of plan of care and treatment. The above goals and plan of care were discussed and agreed upon by patient/family. SUBJECTIVE: pain in the (R) hip and (L) leg. Pain shoots down the left leg. All was exacerbated from a fall last December. Hip is [id number]. Patient Goals: decreasde pain and improved function [...] Stop Time : 914 Anay Esteban PT Referring Provider: IBETH ALBERT [[id number]] Allergies As of Date: 02/16/2023 Noted Allergy Reaction FENTANYL 08/22/2015 14 - Other: See Comments Comments: PATCH ONLY. Respiratory distress due to rapid absorption. CHANTIX (VARENICLINE) 09/30/2016 5 - Intolerance Comments: hallucinations Date Reviewed: 02/14/2023 Reviewed by: Bria Burton MA - Fully Assessed Reason for Visit: PT Eval [747] Primary Visit Diagnosis:Lumbar radiculopathy [M54.16] Other Visit Diagnosis:Primary osteoarthritis of right hip [M16.11] Order(s):CONSULT TO PHYSICAL THERAPY [9032] Order #: [id number]: 1 PT AQUATIC REHAB FOLLOW UP ORDER [9233010] Order #: [id number]: 1 Prescriptions as of 02/16/2023 - diclofenac (VOLTAREN ARTHRITIS PAIN) 1 % topical gel Apply 2 g to affected area twice daily as needed. - Cholecalciferol, Vitamin D3, (VITAMIN D) 25 mcg (1,000 unit) cap Take 1 capsule by mouth once daily. - omeprazole (PRILOSEC) 20 mg capsule Take 1 capsule by mouth once daily. - L.acidophilus-L.rhamnosus (FLORAJEN WOMEN) 15 billion cell capsule Take 1 capsule by mouth once daily. - ibuprofen (MOTRIN) 800 mg tablet Take 1 tablet by mouth every 8 hours as needed for pain. Take with food. - amLODIPine (NORVASC) 10 mg tablet Take 1 tablet by mouth once daily. - budesonide-formoterol (SYMBICORT) 160-4.5 mcg/actuation inhaler Inhale 2 Puffs as instructed twice daily. - oxybutynin ER (DITROPAN XL) 10 mg 24 hr tablet TAKE 1 TABLET BY MOUTH DAILY - atorvastatin (LIPITOR) 40 mg tablet Take 1 tablet by mouth daily at bedtime. - pregabalin (LYRICA) 150 mg capsule Take one pill three times per day - mirabegron (MYRBETRIQ) 25 mg Tb24 Take 1 tablet by mouth once daily. - thiamine (VITAMIN B1) 100 mg tablet Take 1 tablet by mouth once daily. - tiotropium bromide (SPIRIVA RESPIMAT) 2.5 mcg/actuation inhaler Inhale 2 Puffs as instructed once daily. - Blood Pressure Monitor 1 Each once daily. ICD 10 code I10 - Blood Pressure Test Kit-Medium kit 1 Each once daily. - metoprolol succinate ER (TOPROL XL) 50 mg 24 hr tablet Take 1 tablet by mouth once daily. - cyanocobalamin (VITAMIN B-12) 1,000 mcg tab Take 1 tablet by mouth once daily. - OLANZapine (ZYPREXA) 5 mg tablet Take 1 tablet by mouth once daily. - buPROPion XL (WELLBUTRIN XL) 150 mg 24 hr tablet Take 1 tablet by mouth once daily. - traZODone (DESYREL) 150 mg tablet Take 1 tablet by mouth at bedtime as needed. - WALKER ROLLATOR SEAT WITH 6 WHEELS - RED For daily use. M54.40, G89.29 Chronic left-sided low back pain with sciatica, sciatica laterality unspecified (primary encounter diagnosis) M51.36 DDD (degenerative disc disease), lumbar M47.816 Lumbar spondylosis R26.81 Gait instability - albuterol HFA (VENTOLIN HFA) 90 mcg/actuation inhaler Inhale 2 Puffs as instructed every 4 hours as needed for wheezing/shortness of breath. - ferrous sulfate 325 mg (65 mg iron) tablet Take 1 tablet by mouth twice daily. - VITAMIN C 500 mg tablet - albuterol (PROVENTIL) 2.5 mg /3 mL (0.083 %) nebulizer solution Use 3 mL via nebulizer every 4 hours as needed for wheezing/shortness of breath. Use over 5-15minutes. - Nebulizers Use as directed. - levothyroxine (SYNTHROID) 25 mcg tablet Take 25 mcg by mouth daily before breakfast. - COMPOUNDED PRESCRIPTION Standard size Rollator Walker #1 Dx Large Blood Pressure Cuff #1 M51.36 DDD (degenerative disc disease), lumbar (primary encounter diagnosis) I10 Essential hypertension - COMPOUNDED PRESCRIPTION ADJUSTABLE CANE DX M51.36 Problem List As Of Date 02/16/2023 Noted Resolved Back pain [M54.9] DDD (degenerative disc disease), lumbar [M51.36] Emphysema of lung (HCC) [J43.9] Tobacco use disorder [F17.200] Hypertension [I10] GERD (gastroesophageal reflux disease) [K21.9] Carpal tunnel syndrome, bilateral [G56.03] 09/23/2015 Obesity [E66.9] Anemia [D64.9] 11/04/2015 Radiculopathy, lumbar region [M54.16] 11/05/2015 Alcohol abuse [F10.10] Chronic midline low back pain with left-sided s*04/21/2016 PE (pulmonary thromboembolism) (HCC) [I26.99] Hyperglycemia [R73.9] 07/14/2016 Stasis edema [I87.309] 07/28/2016 Right lumbar radiculopathy [M54.16] 08/11/2016 Obesity, Class III, BMI >= 40 (morbid obesity) *09/29/2016 Delusional disorder (HCC) [F22] 10/14/2016 Chronic low back pain with sciatica [M54.40, G8*06/07/2017 Abnormal echocardiogram [R93.1] 08/18/2017 Chronic left-sided low back pain with sciatica *11/29/2017 COPD (chronic obstructive pulmonary disease) wi*03/13/2018 Positive urine drug screen [R82.5] 08/16/2018 Encounter for support and coordination of trans*05/15/2020 05/02/2021 Mild protein-calorie malnutrition (HCC) [E44.1] 08/26/2020 11/12/2021 Lumbar spondylosis [M47.816] 02/26/2021 Cervical spondylosis without myelopathy [M47.81*02/26/2021 Encounter for support and coordination of trans*05/02/2021 07/23/2021 Other chest pain [R07.89] 10/21/2021 Stress incontinence [N39.3] 11/12/2021 Chronic active hepatitis C (HCC) [B18.2] 11/23/2021 History of colonic polyps [Z86.010] 11/23/2021 Traumatic closed nondisp torus fracture of dist*01/31/2022 Bacterial vaginosis [N76.0, B96.89] 02/02/2022 Spinal stenosis, lumbar region, without neuroge*02/24/2022 Cognitive impairment, mild, so stated [G31.84] 02/27/2022 Encounter Status:Closed by ANAY ESTEBAN on 02/16/23 PROGRESS Observed: 02/16/2023 8:44 AM Status: COMPLETED Source: [facility] REPOSITORY O ID: [id number] Author: Anay Esteban, PT Service: ? Author [...] up without use of hands on thighs [place] in home exercise program. Perform ADL's with decreased report of symptoms/pain in 6-8 weeks. Increased strength of (B) LE's by one full MMT grade or better Patient Goals: decreasde pain and improved function Planned Interventions, Frequency, and Duration: Current Frequency: 2x/week Duration: 8 weeks Total Number of Visits Planned: 16 Planned Treatment Interventions: Aquatic PT (73631), Therapeutic exercise (74224), Neuromuscular re-education (88052), Manual therapy (78048), Therapeutic activities (56880), Self-fpc management (18166), Gait Training (92420), Group Therapy (52552) PLAN FOR NEXT VISIT: begin aquatic therapy Patient demonstrates good understanding of plan of care and treatment. The above goals and plan of care were discussed and agreed upon by patient/family. SUBJECTIVE: pain in the (R) hip and (L) leg. Pain shoots down the left leg. All was exacerbated from a fall last December. Hip is [id number]. Patient Goals: decreasde pain and improved function [...] : 844 Session Stop Time : 914 HAIR Antonio Observed: 02/16/2023 12:00 AM Status: COMPLETED Source: [facility] REPOSITORY Telephone ([facility]) MARILUZ GARCIA ([id number]) 1970 F Date Time Provider Department 02/16/23 Jaimee PALOMARES [facility] During your visit today, we recorded the following information about you: Siddharth Mascorro LPN 02/16/2023 3:26 PM Signed Type of form: CMN- [facility] [place] Form received via fax When form is completed, Fax form to [phone] Form has been forwarded to Physician Mailbox: ALEIDA Diane LPN, M Gregory, PA-C 02/18/2023 5:52 PM Signed Please clarify if she is needing O2. Past note indicates stopped 07/21/2022 ThanksFaustino PA-C Morris, Jacqueline, LPN 02/22/2023 10:50 AM Signed Tried reaching patient, phone just rings, no voicemail. Will need to try at another time. Fadumo Romero, YAYA 02/22/2023 11:02 AM Signed Patient returned call to reply to Faustino Palomares's message below. Patient states she started using 2 liters of oxygen continuous each night since July 2022, shortly after informing Faustino that she had stopped using it. Reports increased smoking. Please complete CMN Form for [employer] as documented below. When form is completed, Fax form to [phone]. Thank you. Jaimee Palomares PA-C 02/22/2023 1:21 PM Signed Okay. See form completed May need up to date off O2 saturation Thanks, ALEIDA Diane Lindsey 02/24/2023 10:31 AM Signed Form and notes faxed back to [facility] [place]. Suzie Andre Allergies As of Date: 02/16/2023 Noted Allergy Reaction FENTANYL 08/22/2015 14 - Other: See Comments Comments: PATCH ONLY. Respiratory distress due to rapid absorption. CHANTIX (VARENICLINE) 09/30/2016 5 - Intolerance Comments: hallucinations Date Reviewed: 02/14/2023 Reviewed by: Bria Burton MA - Fully Assessed Reason for Visit: Forms [913] Prescriptions as of 02/24/2023 - diclofenac (VOLTAREN ARTHRITIS PAIN) 1 % topical gel Apply 2 g to affected area twice daily as needed. - Cholecalciferol, Vitamin D3, (VITAMIN D) 25 mcg (1,000 unit) cap Take 1 capsule by mouth once daily. - omeprazole (PRILOSEC) 20 mg capsule Take 1 capsule by mouth once daily. - L.acidophilus-L.rhamnosus (FLORAJEN WOMEN) 15 billion cell capsule Take 1 capsule by mouth once daily. - ibuprofen (MOTRIN) 800 mg tablet Take 1 tablet by mouth every 8 hours as needed for pain. Take with food. - amLODIPine (NORVASC) 10 mg tablet Take 1 tablet by mouth once daily. - budesonide-formoterol (SYMBICORT) 160-4.5 mcg/actuation inhaler Inhale 2 Puffs as instructed twice daily. - oxybutynin ER (DITROPAN XL) 10 mg 24 hr tablet TAKE 1 TABLET BY MOUTH DAILY - atorvastatin (LIPITOR) 40 mg tablet Take 1 tablet by mouth daily at bedtime. - pregabalin (LYRICA) 150 mg capsule Take one pill three times per day - mirabegron (MYRBETRIQ) 25 mg Tb24 Take 1 tablet by mouth once daily. - thiamine (VITAMIN B1) 100 mg tablet Take 1 tablet by mouth once daily. - tiotropium bromide (SPIRIVA RESPIMAT) 2.5 mcg/actuation inhaler Inhale 2 Puffs as instructed once daily. - Blood Pressure Monitor 1 Each once daily. ICD 10 code I10 - Blood Pressure Test Kit-Medium kit 1 Each once daily. - metoprolol succinate ER (TOPROL XL) 50 mg 24 hr tablet Take 1 tablet by mouth once daily. - cyanocobalamin (VITAMIN B-12) 1,000 mcg tab Take 1 tablet by mouth once daily. - OLANZapine (ZYPREXA) 5 mg tablet Take 1 tablet by mouth once daily. - buPROPion XL (WELLBUTRIN XL) 150 mg 24 hr tablet Take 1 tablet by mouth once daily. - traZODone (DESYREL) 150 mg tablet Take 1 tablet by mouth at bedtime as needed. - WALKER ROLLATOR SEAT WITH 6 WHEELS - RED For daily use. M54.40, G89.29 Chronic left-sided low back pain with sciatica, sciatica laterality unspecified (primary encounter diagnosis) M51.36 DDD (degenerative disc disease), lumbar M47.816 Lumbar spondylosis R26.81 Gait instability - albuterol HFA (VENTOLIN HFA) 90 mcg/actuation inhaler Inhale 2 Puffs as instructed every 4 hours as needed for wheezing/shortness of breath. - ferrous sulfate 325 mg (65 mg iron) tablet Take 1 tablet by mouth twice daily. - VITAMIN C 500 mg tablet - albuterol (PROVENTIL) 2.5 mg /3 mL (0.083 %) nebulizer solution Use 3 mL via nebulizer every 4 hours as needed for wheezing/shortness of breath. Use over 5-15minutes. - Nebulizers Use as directed. - levothyroxine (SYNTHROID) 25 mcg tablet Take 25 mcg by mouth daily before breakfast. - COMPOUNDED PRESCRIPTION Standard size Rollator Walker #1 Dx Large Blood Pressure Cuff #1 M51.36 DDD (degenerative disc disease), lumbar (primary encounter diagnosis) I10 Essential hypertension - COMPOUNDED PRESCRIPTION ADJUSTABLE CANE DX M51.36 Problem List As Of Date 02/16/2023 Noted Resolved Back pain [M54.9] DDD (degenerative disc disease), lumbar [M51.36] Emphysema of lung (HCC) [J43.9] Tobacco use disorder [F17.200] Hypertension [I10] GERD (gastroesophageal reflux disease) [K21.9] Carpal tunnel syndrome, bilateral [G56.03] 09/23/2015 Obesity [E66.9] Anemia [D64.9] 11/04/2015 Radiculopathy, lumbar region [M54.16] 11/05/2015 Alcohol abuse [F10.10] Chronic midline low back pain with left-sided s*04/21/2016 PE (pulmonary thromboembolism) (HCC) [I26.99] Hyperglycemia [R73.9] 07/14/2016 Stasis edema [I87.309] 07/28/2016 Right lumbar radiculopathy [M54.16] 08/11/2016 Obesity, Class III, BMI >= 40 (morbid obesity) *09/29/2016 Delusional disorder (HCC) [F22] 10/14/2016 Chronic low back pain with sciatica [M54.40, G8*06/07/2017 Abnormal echocardiogram [R93.1] 08/18/2017 Chronic left-sided low back pain with sciatica *11/29/2017 COPD (chronic obstructive pulmonary disease) wi*03/13/2018 Positive urine drug screen [R82.5] 08/16/2018 Encounter for support and coordination of trans*05/15/2020 05/02/2021 Mild protein-calorie malnutrition (HCC) [E44.1] 08/26/2020 11/12/2021 Lumbar spondylosis [M47.816] 02/26/2021 Cervical spondylosis without myelopathy [M47.81*02/26/2021 Encounter for support and coordination of trans*05/02/2021 07/23/2021 Other chest pain [R07.89] 10/21/2021 Stress incontinence [N39.3] 11/12/2021 Chronic active hepatitis C (HCC) [B18.2] 11/23/2021 History of colonic polyps [Z86.010] 11/23/2021 Traumatic closed nondisp torus fracture of dist*01/31/2022 Bacterial vaginosis [N76.0, B96.89] 02/02/2022 Spinal stenosis, lumbar region, without neuroge*02/24/2022 Cognitive impairment, mild, so stated [G31.84] 02/27/2022 Encounter Status:Closed by SUZIE RENO on 02/24/23 CNOV Observed: 02/14/2023 10:30 AM Status: COMPLETED Source: [facility] REPOSITORY Office Visit (BRCRBD) MARILUZ GARCIA ([id number]) 1970 F Date Time Provider Department 02/14/23 10:30 AM CARMELITA RAGSDALE BRCRBD During your visit today, we recorded the following information about you: Weight Height 70.3 kg 1.651 m Carmelita Ragsdale MD 02/14/2023 4:37 PM Addendum MEDICAL BREAST PATIENT NAME: Mariluz Garcia February [...] old premenopausal woman who presents to the [facility] [place] today for evaluation of breast pain. She [...] care 05/15/2020 HOSPITAL/ER FOLLOW UP Which facility: [facility] Dates of visit: 05/10-05/13/2020 Preadmission evaluation: [...] of admission 05/01/2021 Date of discharge: Facility: [facility] 05/01/2021 presented to the emergency room with acute alcohol intoxication, initial alcohol level 7-8. Acknowledges over the last 5 months drinking 15 packs a day at 8% alcohol (nataidan samaniego). Vital signs 96.6 [id number]/73-98%. Appearance was no acute distress. WBC 7.9-Hgb 13.8-HCT 39 Encounter for support and coordination of transition of care 05/05/2022 05/05/2022 patient called squad, transported to [facility] with lightheadedness and multiple syncopal [...] autograft, fell in firepit TONSILLECTOMY AND ADENOIDECTOMY <AGE 10 1979 SOCIAL HISTORY: Social [...] Wt 70.3 kg (155 lb) BMI 25.79 kg/m? General: well-nourished, female, alert and oriented x [...] which included preparing to see the patient, [id number] patient care, completing clinical documentation, obtaining and/or [...] 14, 2023 CC: Jenifer Yeager [address] [facility] [address] [address] Cici Palomares [address] [facility] [place] [address] Agustina Brown PA-C 02/14/2023 11:18 AM Signed Patient to call [phone] for appointment with genetics. Referring Provider: JENIFER YEAGER [[id number]] Allergies As of Date: 02/14/2023 Noted Allergy Reaction FENTANYL 08/22/2015 14 - Other: See Comments Comments: PATCH ONLY. Respiratory distress due to rapid absorption. CHANTIX (VARENICLINE) 09/30/2016 5 - Intolerance Comments: hallucinations Date Reviewed: 02/14/2023 Reviewed by: Bria Burton MA - Fully Assessed Reason for Visit: New Patient [172] Cmt: LT breast pain; family history of breast and ovarian CA; Primary Visit Diagnosis:Fibrocystic breast changes, bilateral [N60.11, N60.12] Other Visit Diagnoses:Mastodynia of left breast [N64.4] Dense breast tissue [R92.2] Family history of breast cancer [Z80.3] Family history of ovarian cancer [Z80.41] Order(s):CONSULT TO BREAST CENTER [] Order #: [id number]: 1 CONSULT TO MEDICAL GENETICS - CANCER [[id number]] Order #: [id number]: 1 FUTURE diclofenac (VOLTAREN ARTHRITIS PAIN) 1 % topical gelApply 2 g to affected area twice daily as needed.Disp: 100 gRfl: 0 Prescriptions as of 02/14/2023 - diclofenac (VOLTAREN ARTHRITIS PAIN) 1 % topical gel Apply 2 g to affected area twice daily as needed. - Cholecalciferol, Vitamin D3, (VITAMIN D) 25 mcg (1,000 unit) cap Take 1 capsule by mouth once daily. - omeprazole (PRILOSEC) 20 mg capsule Take 1 capsule by mouth once daily. - L.acidophilus-L.rhamnosus (FLORAJEN WOMEN) 15 billion cell capsule Take 1 capsule by mouth once daily. - ibuprofen (MOTRIN) 800 mg tablet Take 1 tablet by mouth every 8 hours as needed for pain. Take with food. - amLODIPine (NORVASC) 10 mg tablet Take 1 tablet by mouth once daily. - budesonide-formoterol (SYMBICORT) 160-4.5 mcg/actuation inhaler Inhale 2 Puffs as instructed twice daily. - oxybutynin ER (DITROPAN XL) 10 mg 24 hr tablet TAKE 1 TABLET BY MOUTH DAILY - atorvastatin (LIPITOR) 40 mg tablet Take 1 tablet by mouth daily at bedtime. - pregabalin (LYRICA) 150 mg capsule Take one pill three times per day - mirabegron (MYRBETRIQ) 25 mg Tb24 Take 1 tablet by mouth once daily. - thiamine (VITAMIN B1) 100 mg tablet Take 1 tablet by mouth once daily. - tiotropium bromide (SPIRIVA RESPIMAT) 2.5 mcg/actuation inhaler Inhale 2 Puffs as instructed once daily. - Blood Pressure Monitor 1 Each once daily. ICD 10 code I10 - Blood Pressure Test Kit-Medium kit 1 Each once daily. - metoprolol succinate ER (TOPROL XL) 50 mg 24 hr tablet Take 1 tablet by mouth once daily. - cyanocobalamin (VITAMIN B-12) 1,000 mcg tab Take 1 tablet by mouth once daily. - OLANZapine (ZYPREXA) 5 mg tablet Take 1 tablet by mouth once daily. - buPROPion XL (WELLBUTRIN XL) 150 mg 24 hr tablet Take 1 tablet by mouth once daily. - traZODone (DESYREL) 150 mg tablet Take 1 tablet by mouth at bedtime as needed. - WALKER ROLLATOR SEAT WITH 6 WHEELS - RED For daily use. M54.40, G89.29 Chronic left-sided low back pain with sciatica, sciatica laterality unspecified (primary encounter diagnosis) M51.36 DDD (degenerative disc disease), lumbar M47.816 Lumbar spondylosis R26.81 Gait instability - albuterol HFA (VENTOLIN HFA) 90 mcg/actuation inhaler Inhale 2 Puffs as instructed every 4 hours as needed for wheezing/shortness of breath. - ferrous sulfate 325 mg (65 mg iron) tablet Take 1 tablet by mouth twice daily. - VITAMIN C 500 mg tablet - albuterol (PROVENTIL) 2.5 mg /3 mL (0.083 %) nebulizer solution Use 3 mL via nebulizer every 4 hours as needed for wheezing/shortness of breath. Use over 5-15minutes. - Nebulizers Use as directed. - levothyroxine (SYNTHROID) 25 mcg tablet Take 25 mcg by mouth daily before breakfast. - COMPOUNDED PRESCRIPTION Standard size Rollator Walker #1 Dx Large Blood Pressure Cuff #1 M51.36 DDD (degenerative disc disease), lumbar (primary encounter diagnosis) I10 Essential hypertension - COMPOUNDED PRESCRIPTION ADJUSTABLE CANE DX M51.36 Problem List As Of Date 02/14/2023 Noted Resolved Back pain [M54.9] DDD (degenerative disc disease), lumbar [M51.36] Emphysema of lung (HCC) [J43.9] Tobacco use disorder [F17.200] Hypertension [I10] GERD (gastroesophageal reflux disease) [K21.9] Carpal tunnel syndrome, bilateral [G56.03] 09/23/2015 Obesity [E66.9] Anemia [D64.9] 11/04/2015 Radiculopathy, lumbar region [M54.16] 11/05/2015 Alcohol abuse [F10.10] Chronic midline low back pain with left-sided s*04/21/2016 PE (pulmonary thromboembolism) (HCC) [I26.99] Hyperglycemia [R73.9] 07/14/2016 Stasis edema [I87.309] 07/28/2016 Right lumbar radiculopathy [M54.16] 08/11/2016 Obesity, Class III, BMI >= 40 (morbid obesity) *09/29/2016 Delusional disorder (HCC) [F22] 10/14/2016 Chronic low back pain with sciatica [M54.40, G8*06/07/2017 Abnormal echocardiogram [R93.1] 08/18/2017 Chronic left-sided low back pain with sciatica *11/29/2017 COPD (chronic obstructive pulmonary disease) wi*03/13/2018 Positive urine drug screen [R82.5] 08/16/2018 Encounter for support and coordination of trans*05/15/2020 05/02/2021 Mild protein-calorie malnutrition (HCC) [E44.1] 08/26/2020 11/12/2021 Lumbar spondylosis [M47.816] 02/26/2021 Cervical spondylosis without myelopathy [M47.81*02/26/2021 Encounter for support and coordination of trans*05/02/2021 07/23/2021 Other chest pain [R07.89] 10/21/2021 Stress incontinence [N39.3] 11/12/2021 Chronic active hepatitis C (HCC) [B18.2] 11/23/2021 History of colonic polyps [Z86.010] 11/23/2021 Traumatic closed nondisp torus fracture of dist*01/31/2022 Bacterial vaginosis [N76.0, B96.89] 02/02/2022 Spinal stenosis, lumbar region, without neuroge*02/24/2022 Cognitive impairment, mild, so stated [G31.84] 02/27/2022 Other instructions from your clinician: Patient to call [phone] for appointment with genetics. Prescriptions ordered this encounter Disp Refills Start End DICLOFENAC 1 % TOPICAL GEL 100 g 0 02/14/2023 03/16/2023 Route: TOPICAL Sig: Apply 2 g to affected area twice daily as needed. Disposition: Return in about 3 months (around 05/17/2023) for Dr. Ragsdale. Follow-up and Disposition History for Encounter Date Provider Department Center 02/14/2023 [id number] RAGSDALE [facility] Encounter Status:Closed by CARMELITA RAGSDALE on 02/14/23 PROGRESS Observed: 02/14/2023 10:20 AM Status: COMPLETED Source: [facility] REPOSITORY O ID: [id number] Author: Carmelita Ragsdale MD Service: ? Author [...] old premenopausal woman who presents to the [facility] today for evaluation of breast pain. She [...] care 05/15/2020 HOSPITAL/ER FOLLOW UP Which facility: [facility] Dates of visit: 05/10-05/13/2020 Preadmission evaluation: [...] of admission 05/01/2021 Date of discharge: Facility: [facility] 05/01/2021 presented to the emergency room with acute alcohol intoxication, initial alcohol level 7-8. Acknowledges over the last 5 months drinking 15 packs a day at 8% alcohol (marcin samaniego). Vital signs 96.6 F-78-18-111/73-98%. Appearance was no acute distress. WBC 7.9-Hgb 13.8-HCT 39 Encounter for support and coordination of transition of care 05/05/2022 05/05/2022 patient called squad, transported to [facility] with lightheadedness and multiple syncopal [...] HX 1989's LAPAROSCOPY SURG CHOLECYSTECTOMY 05/12/2020 NEUROPLASTY AND/TRANSPOS MEDIAN [...] autograft, fell in firepit TONSILLECTOMY AND ADENOIDECTOMY <AGE 10 1979 SOCIAL HISTORY: Social [...] Wt 70.3 kg (155 lb) BMI 25.79 kg/m? General: well-nourished, female, alert and oriented x [...] limits the sensitivity of mammography. Assessment IMPRESSION/PLAN: Mrailuz Garcia is a 52 year old year [...] which included preparing to see the patient, [id number] patient care, completing clinical documentation, obtaining and/or [...] 14, 2023 CC: Jenifer Yeager [address] [facility] [address] [address] [place] [address] [facility] Observed: 02/14/2023 12:00 AM Status: COMPLETED Source: [facility] REPOSITORY Telephone (NEMOWS) MARILUZ GARCIA ([id number]) 1970 F Date Time Provider Department 02/14/23 URVASHI HUGHES During your visit today, we recorded the following information about you: Jenifer Puri LPN 02/14/2023 7:46 AM Signed ----- Message from Urvashi Hughes APRN.APPLIED COMPUTER SCIENCE PROFESSOR sent at 02/14/2023 7:30 AM EDT ----- EEG is normal and does not show any evidence of seizure activity. Jenifer Puri LPN 02/14/2023 9:16 AM Signed TC to pt who voiced understanding. Of results below. Jenifer Puri LPN Allergies As of Date: 02/14/2023 Noted Allergy Reaction FENTANYL 08/22/2015 14 - Other: See Comments Comments: PATCH ONLY. Respiratory distress due to rapid absorption. CHANTIX (VARENICLINE) 09/30/2016 5 - Intolerance Comments: hallucinations Date Reviewed: 02/09/2023 Reviewed by: Bharti Barlow MA - Fully Assessed Reason for Visit: Results [95] Prescriptions as of 02/14/2023 - Cholecalciferol, Vitamin D3, (VITAMIN D) 25 mcg (1,000 unit) cap Take 1 capsule by mouth once daily. - omeprazole (PRILOSEC) 20 mg capsule Take 1 capsule by mouth once daily. - L.acidophilus-L.rhamnosus (FLORAJEN WOMEN) 15 billion cell capsule Take 1 capsule by mouth once daily. - ibuprofen (MOTRIN) 800 mg tablet Take 1 tablet by mouth every 8 hours as needed for pain. Take with food. - amLODIPine (NORVASC) 10 mg tablet Take 1 tablet by mouth once daily. - budesonide-formoterol (SYMBICORT) 160-4.5 mcg/actuation inhaler Inhale 2 Puffs as instructed twice daily. - oxybutynin ER (DITROPAN XL) 10 mg 24 hr tablet TAKE 1 TABLET BY MOUTH DAILY - atorvastatin (LIPITOR) 40 mg tablet Take 1 tablet by mouth daily at bedtime. - pregabalin (LYRICA) 150 mg capsule Take one pill three times per day - mirabegron (MYRBETRIQ) 25 mg Tb24 Take 1 tablet by mouth once daily. - thiamine (VITAMIN B1) 100 mg tablet Take 1 tablet by mouth once daily. - tiotropium bromide (SPIRIVA RESPIMAT) 2.5 mcg/actuation inhaler Inhale 2 Puffs as instructed once daily. - Blood Pressure Monitor 1 Each once daily. ICD 10 code I10 - Blood Pressure Test Kit-Medium kit 1 Each once daily. - metoprolol succinate ER (TOPROL XL) 50 mg 24 hr tablet Take 1 tablet by mouth once daily. - cyanocobalamin (VITAMIN B-12) 1,000 mcg tab Take 1 tablet by mouth once daily. - OLANZapine (ZYPREXA) 5 mg tablet Take 1 tablet by mouth once daily. - buPROPion XL (WELLBUTRIN XL) 150 mg 24 hr tablet Take 1 tablet by mouth once daily. - traZODone (DESYREL) 150 mg tablet Take 1 tablet by mouth at bedtime as needed. - WALKER ROLLATOR SEAT WITH 6 WHEELS - RED For daily use. M54.40, G89.29 Chronic left-sided low back pain with sciatica, sciatica laterality unspecified (primary encounter diagnosis) M51.36 DDD (degenerative disc disease), lumbar M47.816 Lumbar spondylosis R26.81 Gait instability - albuterol HFA (VENTOLIN HFA) 90 mcg/actuation inhaler Inhale 2 Puffs as instructed every 4 hours as needed for wheezing/shortness of breath. - ferrous sulfate 325 mg (65 mg iron) tablet Take 1 tablet by mouth twice daily. - VITAMIN C 500 mg tablet - albuterol (PROVENTIL) 2.5 mg /3 mL (0.083 %) nebulizer solution Use 3 mL via nebulizer every 4 hours as needed for wheezing/shortness of breath. Use over 5-15minutes. - Nebulizers Use as directed. - levothyroxine (SYNTHROID) 25 mcg tablet Take 25 mcg by mouth daily before breakfast. - COMPOUNDED PRESCRIPTION Standard size Rollator Walker #1 Dx Large Blood Pressure Cuff #1 M51.36 DDD (degenerative disc disease), lumbar (primary encounter diagnosis) I10 Essential hypertension - COMPOUNDED PRESCRIPTION ADJUSTABLE CANE DX M51.36 Problem List As Of Date 02/14/2023 Noted Resolved Back pain [M54.9] DDD (degenerative disc disease), lumbar [M51.36] Emphysema of lung (HCC) [J43.9] Tobacco use disorder [F17.200] Hypertension [I10] GERD (gastroesophageal reflux disease) [K21.9] Carpal tunnel syndrome, bilateral [G56.03] 09/23/2015 Obesity [E66.9] Anemia [D64.9] 11/04/2015 Radiculopathy, lumbar region [M54.16] 11/05/2015 Alcohol abuse [F10.10] Chronic midline low back pain with left-sided s*04/21/2016 PE (pulmonary thromboembolism) (HCC) [I26.99] Hyperglycemia [R73.9] 07/14/2016 Stasis edema [I87.309] 07/28/2016 Right lumbar radiculopathy [M54.16] 08/11/2016 Obesity, Class III, BMI >= 40 (morbid obesity) *09/29/2016 Delusional disorder (HCC) [F22] 10/14/2016 Chronic low back pain with sciatica [M54.40, G8*06/07/2017 Abnormal echocardiogram [R93.1] 08/18/2017 Chronic left-sided low back pain with sciatica *11/29/2017 COPD (chronic obstructive pulmonary disease) wi*03/13/2018 Positive urine drug screen [R82.5] 08/16/2018 Encounter for support and coordination of trans*05/15/2020 05/02/2021 Mild protein-calorie malnutrition (HCC) [E44.1] 08/26/2020 11/12/2021 Lumbar spondylosis [M47.816] 02/26/2021 Cervical spondylosis without myelopathy [M47.81*02/26/2021 Encounter for support and coordination of trans*05/02/2021 07/23/2021 Other chest pain [R07.89] 10/21/2021 Stress incontinence [N39.3] 11/12/2021 Chronic active hepatitis C (HCC) [B18.2] 11/23/2021 History of colonic polyps [Z86.010] 11/23/2021 Traumatic closed nondisp torus fracture of dist*01/31/2022 Bacterial vaginosis [N76.0, B96.89] 02/02/2022 Spinal stenosis, lumbar region, without neuroge*02/24/2022 Cognitive impairment, mild, so stated [G31.84] 02/27/2022 Encounter Status:Closed by JENIFER PURI on 02/14/23 NURIA Observed: 02/09/2023 10:20 AM Status: COMPLETED Source: [facility] REPOSITORY Office Visit (SPNMED) BRITTONMARILUZ ([id number]) 1970 F Date Time Provider Department 02/09/23 10:20 AM IBETH ALBERT SPNMED During your visit today, we recorded the following information about you: Pulse Blood pressure Weight Height 61/minute 114/77 70.3 kg 1.727 m Ibeth Albert PA-C 02/09/2023 11:04 AM Signed [facility] [address] [place] [address] 02/09/2023 ASSESSMENT AND PLAN: Assessment : Encounter [...] back in 2012 or 2013 outside of [facility]. She has had intermittent LEFT lower extremity radiating symptoms ever since. She had a lumbar MRI scan completed in May 2021 but she feels that her symptoms have changed and worsened since then. She has been treated by Dr. Bermeo and Allie Sapp for pain management in 2019 and had injections [address] Dr. Deloris Troy [...] today with this patient visit. This includes ezij-fo-hlqu time, review of chart records regarding conservative care history, spine-pertinent imaging, and communication/care coordination with referring provider, problem-specific history-taking and counseling/education regarding treatment options. cc: Jaimee Palomares [address] [facility] [place] [address] Results of consultation to be transmitted via electronic medical record for those providers who practice within [facility] or with access to [employer] via [facility] [employer], or via letter. ######################################################################## CHIEF COMPLAINT: Lower back pain HPI: see Discussion above History of bowel or bladder dysfunction (not IBS or constipation): Yes, urgency and incontinence. History of previous spinal surgery: No, Yes, performed in by Dr. Crowley to remember name in [place]. The procedure was cut out L-4 and L-5 discs. . History of spinal fracture: No Work Status: Disabled due to brain issues and spine issues, PTSD NON-OPERATIVE CARE: Medication(s): She has tried the following for relief of her symptoms: OTC Tylenol and Lyrica Physical Therapy: She has had physical therapy ([facility]) for her current symptoms. This was completed 1 year ago. The therapy provided a small amount of relief when she was in the water. Spinal Injections: She has not gotten prior spinal injections. Other: Chiropractice care with no relief None Current Outpatient Medications Medication Sig Dispense Refill Cholecalciferol, Vitamin D3, (VITAMIN D) 25 mcg (1,000 unit) cap Take 1 capsule by mouth once daily. 90 capsule 1 omeprazole (PRILOSEC) 20 mg capsule Take 1 capsule by mouth once daily. 30 capsule 5 L.acidophilus-L.rhamnosus (FLORAJEN WOMEN) 15 billion cell capsule Take 1 capsule by mouth once daily. 30 capsule 1 ibuprofen (MOTRIN) 800 mg tablet Take 1 tablet by mouth every 8 hours as needed for pain. Take with food. 30 tablet 1 amLODIPine (NORVASC) 10 mg tablet Take 1 tablet by mouth once daily. 90 tablet 1 budesonide-formoterol (SYMBICORT) 160-4.5 mcg/actuation inhaler Inhale 2 Puffs as instructed twice daily. 1 Each 5 oxybutynin ER (DITROPAN XL) 10 mg 24 hr tablet TAKE 1 TABLET BY MOUTH DAILY 30 tablet 11 atorvastatin (LIPITOR) 40 mg tablet Take 1 tablet by mouth daily at bedtime. 30 tablet 5 pregabalin (LYRICA) 150 mg capsule Take one pill three times per day 90 capsule 5 mirabegron (MYRBETRIQ) 25 mg Tb24 Take 1 tablet by mouth once daily. 30 tablet 5 thiamine (VITAMIN B1) 100 mg tablet Take 1 tablet by mouth once daily. 30 tablet 5 tiotropium bromide (SPIRIVA RESPIMAT) 2.5 mcg/actuation inhaler Inhale 2 Puffs as instructed once daily. 1 Each 5 Blood Pressure Monitor 1 Each once daily. ICD 10 code I10 1 Kit 0 Blood Pressure Test Kit-Medium kit 1 Each once daily. 1 Kit 0 metoprolol succinate ER (TOPROL XL) 50 mg 24 hr tablet Take 1 tablet by mouth once daily. 30 tablet 3 cyanocobalamin (VITAMIN B-12) 1,000 mcg tab Take [...] spondylosis R26.81 Gait instability 1 Each 0 albuterol HFA (VENTOLIN HFA) 90 mcg/actuation inhaler Inhale 2 Puffs as instructed every 4 hours as needed for wheezing/shortness of breath. 3 Each 3 ferrous sulfate 325 mg (65 mg iron) tablet Take 1 tablet by mouth twice daily. 56 tablet 11 VITAMIN C 500 mg tablet albuterol (PROVENTIL) [...] No current facility-administered medications for this visit. Allergies: Fentanyl and Chantix [Varenicline] PAST MEDICAL HISTORY Diagnosis Date Alcohol abuse Anemia Back pain Blood dyscrasia Cervical spondylosis without myelopathy Cholecystitis 04/2020 Chronic hepatitis C (HCC) DDD (degenerative disc disease), lumbar Depression with anxiety Drug use 08/15/2018 ecstacy Emphysema of lung (HCC) Encounter for support and coordination of transition of care 05/15/2020 HOSPITAL/ER FOLLOW UP Which facility: [facility] Dates of visit: 05/10-05/13/2020 Preadmission evaluation: [...] of admission 05/01/2021 Date of discharge: Facility: [facility] 05/01/2021 presented to the emergency room with acute alcohol intoxication, initial alcohol level 7-8. Acknowledges over the last 5 months drinking 15 packs a day at 8% alcohol (nataidan samaniego). Vital signs 96.6 F-78-18-111/73-98%. Appearance was no acute distress. WBC 7.9-Hgb 13.8-HCT 39 Encounter for support and coordination of transition of care 05/05/2022 05/05/2022 patient called squad, transported to [facility] with lightheadedness and multiple syncopal episodes one of them resulting in injury to her right foot. GERD (gastroesophageal reflux disease) Hyperglycemia Hypertension Lung abscess (HCC) saw Néstor Li and Dr. Zarate. Major depression Mild protein-calorie malnutrition (HCC) 08/26/2020 Obesity PE (pulmonary thromboembolism) ([facility]) PTSD (post-traumatic stress disorder) Snoring Tobacco use [...] autograft, fell in firepit TONSILLECTOMY AND ADENOIDECTOMY <AGE 10 1979 Social History Tobacco Use Smoking status: Every Day Packs/day: 0.25 Years: 32.00 Additional pack years: 0.00 Total pack years: 8.00 Types: Cigarettes Smokeless tobacco: Never Tobacco comments: started smoking 12yr, 3 cigs daily Vaping Use Vaping Use: Never used Substance Use Topics Alcohol use: Not Currently Drug use: Yes Types: Marijuana FAMILY HISTORY Problem Relation Age of Onset Hypertension Mother Cancer Mother lung, metastatic Heart Father Heart Maternal Grandmother Stroke Maternal Grandmother Colon Cancer No Family History REVIEW OF SYSTEMS: Constitutional: (+) Fever/Chills (+) Night Sweats (-) Weight Gain (-) Weight Loss (+) Fatigue Gastrointestinal: (-) Abdominal Pain (-) Diarrhea (-) Constipation (+) Nausea/Vomiting (+) Heart Burn Cardiovascular: (-) Chest Pain (-) Palpitations (+) Lightheadedness (-) Swelling of Ankles (-) Hx Heart Surgery/Stent Respiratory: (+) Short of Breath (-) Cough (+) Snoring Neurologic: (+) Headache (+) Blurry Vision (-) Fainting Skin: (-) Rashes (-) Itching (-) Other Lesions Psychiatric: (+) Depression (+) Anxiety (-) Suicidal Thoughts Genitourinary: (+) Frequency (+) Urgency Endocrine: (+) Thyroid Disorder (-) Diabetes Hematologic: (+) Prolonged Bleeding (+) Easy Bruising ###############################################################################- ################################################## PHYSICAL EXAM: Blood pressure 114/77, pulse 61, height 172.7 cm (5' 8 ), weight 70.3 kg (155 lb), SpO2 98 %. Body mass index is 23.57 kg/m?. General: Patient is a(n) good historian. The patient appears older than the recorded age and is sitting uncomfortably and leaning to the right side in the examining room. The patient is tall in stature and is average weight in appearance. This individual has difficulty arising from a sitting position and does have difficulty acquiring a full, upright position when standing. Station and Gait: flexed posture and antalgic gait leaning forward, favoring the left lower extremity, flexed posture and gait using a cane, and short strides The patient is unable to walk in a tandem gait. MENTAL STATUS EXAMINATION: The patient was very neatly dressed and smelled of cigarette smoke. The patient had fair eye contact and rapport was average to establish. The patient appeared to be alert and oriented in all spheres. The patient's overall medical judgment appeared to be fair.The patient's motivation for treatment was judged based on today's encounter to be good. SPINE: Lumbar Lordosis: Normal Thoracic Kyphosis: Normal PALPATION TENDERNESS: Severe tenderness at: lumbar region, posterior pelvis, and gluteal region Hyperesthesia present: Yes--axial spine Regional symptoms present: No Increased pain with axial loading: No Distraction: Normal Pain responses: elevated NEUROLOGIC EXAM: MOTOR: Requires verbal cues to minimize cog-wheel or give-way resistance: Yes Hip Flexor R: -4/5 L: -4/5 Hip Abductor R: 5/5 L: 5/5 Hip Adductor R: 5/5 L: 5/5 Knee Extension R: +4/5 L: +4/5 Foot Dorsiflexion R: +4/5 L: +4/5 Foot Plantar Flexion R: 5/5 L: 5/5 Ext Hallicus Longus R: +4/5 L: +4/5 Toe Extensors R: +4/5 L: +4/5 SENSATION to Light Touch: Lumbar: L5: R: Normal, L: Abnormal: Noted findings are decreased sensation to light touch within this dermatome. REFLEXES: Lower Extremity: Patella tendon: R: 1+ L: 1+ Achilles tendon: R: 0 L: 0 Clonus: R: 1-2 beats L: 1-2 beats Babinski Sign: Negative bilaterally. VASCULAR: Skin appearance: Right: Warm/pink Left: Warm/pink Capillary refill: Right: brisk Left: brisk ADDITIONAL MUSCULOSKELETAL EXAM: HIP/PELVIS EXAM: Tenderness over the PSIS: Right: Yes Left: Yes Greater Trochanteric pain: Right: Yes Left: Yes Pain: Right: No Left: No SPECIAL TESTS: Straight Leg Raise: positive on the left Contralateral Straight Leg Raise: negative bilaterally IMAGING STUDIES: See discussion above Referring Provider: Jaimee PALOMARES [[id number]] Allergies As of Date: 02/09/2023 Noted Allergy Reaction FENTANYL 08/22/2015 14 - Other: See Comments Comments: PATCH ONLY. Respiratory distress due to rapid absorption. CHANTIX (VARENICLINE) 09/30/2016 5 - Intolerance Comments: hallucinations Date Reviewed: 02/09/2023 Reviewed by: Bharti Barlow MA - Fully Assessed Reason for Visit: New Patient Evaluation [154] Primary Visit Diagnosis:Lumbar radiculopathy [M54.16] Other Visit Diagnosis:Primary osteoarthritis of right hip [M16.11] Order(s):CONSULT TO ORTHOPAEDICS [9003] Order #: [id number]: 1 CONSULT TO PHYSICAL THERAPY [9032] Order #: [id number]: 1 FUTURE XR LUMBAR MOTION 4V AP/LAT/ FLEX/EXT [[id number]] Order #: [id number] FUTURE Prescriptions as of 02/09/2023 - Cholecalciferol, Vitamin D3, (VITAMIN D) 25 mcg (1,000 unit) cap Take 1 capsule by mouth once daily. - omeprazole (PRILOSEC) 20 mg capsule Take 1 capsule by mouth once daily. - L.acidophilus-L.rhamnosus (FLORAJEN WOMEN) 15 billion cell capsule Take 1 capsule by mouth once daily. - ibuprofen (MOTRIN) 800 mg tablet Take 1 tablet by mouth every 8 hours as needed for pain. Take with food. - amLODIPine (NORVASC) 10 mg tablet Take 1 tablet by mouth once daily. - budesonide-formoterol (SYMBICORT) 160-4.5 mcg/actuation inhaler Inhale 2 Puffs as instructed twice daily. - oxybutynin ER (DITROPAN XL) 10 mg 24 hr tablet TAKE 1 TABLET BY MOUTH DAILY - atorvastatin (LIPITOR) 40 mg tablet Take 1 tablet by mouth daily at bedtime. - pregabalin (LYRICA) 150 mg capsule Take one pill three times per day - mirabegron (MYRBETRIQ) 25 mg Tb24 Take 1 tablet by mouth once daily. - thiamine (VITAMIN B1) 100 mg tablet Take 1 tablet by mouth once daily. - tiotropium bromide (SPIRIVA RESPIMAT) 2.5 mcg/actuation inhaler Inhale 2 Puffs as instructed once daily. - Blood Pressure Monitor 1 Each once daily. ICD 10 code I10 - Blood Pressure Test Kit-Medium kit 1 Each once daily. - metoprolol succinate ER (TOPROL XL) 50 mg 24 hr tablet Take 1 tablet by mouth once daily. - cyanocobalamin (VITAMIN B-12) 1,000 mcg tab Take 1 tablet by mouth once daily. - OLANZapine (ZYPREXA) 5 mg tablet Take 1 tablet by mouth once daily. - buPROPion XL (WELLBUTRIN XL) 150 mg 24 hr tablet Take 1 tablet by mouth once daily. - traZODone (DESYREL) 150 mg tablet Take 1 tablet by mouth at bedtime as needed. - WALKER ROLLATOR SEAT WITH 6 WHEELS - RED For daily use. M54.40, G89.29 Chronic left-sided low back pain with sciatica, sciatica laterality unspecified (primary encounter diagnosis) M51.36 DDD (degenerative disc disease), lumbar M47.816 Lumbar spondylosis R26.81 Gait instability - albuterol HFA (VENTOLIN HFA) 90 mcg/actuation inhaler Inhale 2 Puffs as instructed every 4 hours as needed for wheezing/shortness of breath. - ferrous sulfate 325 mg (65 mg iron) tablet Take 1 tablet by mouth twice daily. - VITAMIN C 500 mg tablet - albuterol (PROVENTIL) 2.5 mg /3 mL (0.083 %) nebulizer solution Use 3 mL via nebulizer every 4 hours as needed for wheezing/shortness of breath. Use over 5-15minutes. - Nebulizers Use as directed. - levothyroxine (SYNTHROID) 25 mcg tablet Take 25 mcg by mouth daily before breakfast. - COMPOUNDED PRESCRIPTION Standard size Rollator Walker #1 Dx Large Blood Pressure Cuff #1 M51.36 DDD (degenerative disc disease), lumbar (primary encounter diagnosis) I10 Essential hypertension - COMPOUNDED PRESCRIPTION ADJUSTABLE CANE DX M51.36 Problem List As Of Date 02/09/2023 Noted Resolved Back pain [M54.9] DDD (degenerative disc disease), lumbar [M51.36] Emphysema of lung (HCC) [J43.9] Tobacco use disorder [F17.200] Hypertension [I10] GERD (gastroesophageal reflux disease) [K21.9] Carpal tunnel syndrome, bilateral [G56.03] 09/23/2015 Obesity [E66.9] Anemia [D64.9] 11/04/2015 Radiculopathy, lumbar region [M54.16] 11/05/2015 Alcohol abuse [F10.10] Chronic midline low back pain with left-sided s*04/21/2016 PE (pulmonary thromboembolism) (HCC) [I26.99] Hyperglycemia [R73.9] 07/14/2016 Stasis edema [I87.309] 07/28/2016 Right lumbar radiculopathy [M54.16] 08/11/2016 Obesity, Class III, BMI >= 40 (morbid obesity) *09/29/2016 Delusional disorder (HCC) [F22] 10/14/2016 Chronic low back pain with sciatica [M54.40, G8*06/07/2017 Abnormal echocardiogram [R93.1] 08/18/2017 Chronic left-sided low back pain with sciatica *11/29/2017 COPD (chronic obstructive pulmonary disease) wi*03/13/2018 Positive urine drug screen [R82.5] 08/16/2018 Encounter for support and coordination of trans*05/15/2020 05/02/2021 Mild protein-calorie malnutrition (HCC) [E44.1] 08/26/2020 11/12/2021 Lumbar spondylosis [M47.816] 02/26/2021 Cervical spondylosis without myelopathy [M47.81*02/26/2021 Encounter for support and coordination of trans*05/02/2021 07/23/2021 Other chest pain [R07.89] 10/21/2021 Stress incontinence [N39.3] 11/12/2021 Chronic active hepatitis C (HCC) [B18.2] 11/23/2021 History of colonic polyps [Z86.010] 11/23/2021 Traumatic closed nondisp torus fracture of dist*01/31/2022 Bacterial vaginosis [N76.0, B96.89] 02/02/2022 Spinal stenosis, lumbar region, without neuroge*02/24/2022 Cognitive impairment, mild, so stated [G31.84] 02/27/2022 Encounter Status:Closed by IBETH ALBERT on 02/09/23 PROGRESS Observed: 02/09/2023 10:08 AM Status: COMPLETED Source: [facility] REPOSITORY O ID: [id number] Author: Ibeth Albert PA-C Service: ? Author Type: Physician Living Supervisor Type: Progress Notes Filed: 02/09/2023 11:04 AM Note Text: Ibeth Albert PA-C [facility] [address] [address] 02/09/2023 ASSESSMENT AND PLAN: Assessment : Encounter [...] back in 2012 or 2013 outside of [facility]. She has had intermittent LEFT lower extremity radiating symptoms ever since. She had a lumbar MRI scan completed in May 2021 but she feels that her symptoms have changed and worsened since then. She has been treated by Dr. Bermeo and Allie Sapp for pain management in [...] today with this patient visit. This includes [id number] time, review of chart records regarding conservative care history, spine-pertinent imaging, and communication/care coordination with referring provider, problem-specific history-taking and counseling/education regarding treatment options. cc: Jaimee Palomares [address] [facility] [id number] Results of consultation to be transmitted via electronic medical record for those providers who practice within [facility] or with access to [employer] via [facility], or via letter. ######################################################################## CHIEF COMPLAINT: Lower back pain HPI: see Discussion above History of bowel or bladder dysfunction (not IBS or constipation): Yes, urgency and incontinence. History of previous spinal surgery: No, Yes, performed in by Dr. Crowley to remember name in [place]. The procedure was cut out L-4 and L-5 discs. . History of spinal fracture: No Work Status: Disabled due to brain issues and spine issues, PTSD NON-OPERATIVE CARE: Medication(s): She has tried the following for relief of her symptoms: OTC Tylenol and Lyrica Physical Therapy: She has had physical therapy ([facility]) for her current symptoms. This was completed 1 year ago. The therapy provided a small amount of relief when she was in the water. Spinal Injections: She has not gotten prior spinal injections. Other: Chiropractice care with no relief None Current Outpatient Medications Medication Sig Dispense Refill Cholecalciferol, Vitamin D3, (VITAMIN D) 25 mcg (1,000 unit) cap Take 1 capsule by mouth once daily. 90 capsule 1 omeprazole (PRILOSEC) 20 mg capsule Take 1 capsule by mouth once daily. 30 capsule 5 L.acidophilus-L.rhamnosus (FLORAJEN WOMEN) 15 billion cell capsule Take 1 capsule by mouth once daily. 30 capsule 1 ibuprofen (MOTRIN) 800 mg tablet Take 1 tablet by mouth every 8 hours as needed for pain. Take with food. 30 tablet 1 amLODIPine (NORVASC) 10 mg tablet Take 1 tablet by mouth once daily. 90 tablet 1 budesonide-formoterol (SYMBICORT) 160-4.5 mcg/actuation inhaler Inhale 2 Puffs as instructed twice daily. 1 Each 5 oxybutynin ER (DITROPAN XL) 10 mg 24 hr tablet TAKE 1 TABLET BY MOUTH DAILY 30 tablet 11 atorvastatin (LIPITOR) 40 mg tablet Take 1 tablet by mouth daily at bedtime. 30 tablet 5 pregabalin (LYRICA) 150 mg capsule Take one pill three times per day 90 capsule 5 mirabegron (MYRBETRIQ) 25 mg Tb24 Take 1 tablet by mouth once daily. 30 tablet 5 thiamine (VITAMIN B1) 100 mg tablet Take 1 tablet by mouth once daily. 30 tablet 5 tiotropium bromide (SPIRIVA RESPIMAT) 2.5 mcg/actuation inhaler Inhale 2 Puffs as instructed once daily. 1 Each 5 Blood Pressure Monitor 1 Each once daily. ICD 10 code I10 1 Kit 0 Blood Pressure Test Kit-Medium kit 1 Each once daily. 1 Kit 0 metoprolol succinate ER (TOPROL XL) 50 mg 24 hr tablet Take 1 tablet by mouth once daily. 30 tablet 3 cyanocobalamin (VITAMIN B-12) 1,000 mcg tab Take [...] spondylosis R26.81 Gait instability 1 Each 0 albuterol HFA (VENTOLIN HFA) 90 mcg/actuation inhaler Inhale 2 Puffs as instructed every 4 hours as needed for wheezing/shortness of breath. 3 Each 3 ferrous sulfate 325 mg (65 mg iron) tablet Take 1 tablet by mouth twice daily. 56 tablet 11 VITAMIN C 500 mg tablet albuterol (PROVENTIL) [...] No current facility-administered medications for this visit. Allergies: Fentanyl and Chantix [Varenicline] PAST MEDICAL HISTORY Diagnosis Date Alcohol abuse Anemia Back pain Blood dyscrasia Cervical spondylosis without myelopathy Cholecystitis 04/2020 Chronic hepatitis C (HCC) DDD (degenerative disc disease), lumbar Depression with anxiety Drug use 08/15/2018 ecstacy Emphysema of lung (HCC) Encounter for support and coordination of transition of care 05/15/2020 HOSPITAL/ER FOLLOW UP Which facility: [facility] Dates of visit: 05/10-05/13/2020 Preadmission evaluation: [...] of admission 05/01/2021 Date of discharge: Facility: [facility] 05/01/2021 presented to the emergency room with acute alcohol intoxication, initial alcohol level 7-8. Acknowledges over the last 5 months drinking 15 packs a day at 8% alcohol (natty dadalfa). Vital signs 96.6 [id number]%. Appearance was no acute distress. WBC 7.9-Hgb 13.8-HCT 39 Encounter for support and coordination of transition of care 05/05/2022 05/05/2022 patient called squad, transported to [facility] with lightheadedness and multiple syncopal episodes one of them resulting in injury to her right foot. GERD (gastroesophageal reflux disease) Hyperglycemia Hypertension Lung abscess ([facility]) saw Néstor Li and Dr. Zarate. Major depression Mild protein-calorie malnutrition (HCC) 08/26/2020 Obesity PE (pulmonary thromboembolism) ([facility]) PTSD (post-traumatic stress disorder) Snoring Tobacco use [...] autograft, fell in firepit TONSILLECTOMY AND ADENOIDECTOMY <AGE 10 1979 Social History Tobacco Use Smoking status: Every Day Packs/day: 0.25 Years: 32.00 Additional pack years: 0.00 Total pack years: 8.00 Types: Cigarettes Smokeless tobacco: Never Tobacco comments: started smoking 12yr, 3 cigs daily Vaping Use Vaping Use: Never used Substance Use Topics Alcohol use: Not Currently Drug use: Yes Types: Marijuana FAMILY HISTORY Problem Relation Age of Onset Hypertension Mother Cancer Mother lung, metastatic Heart Father Heart Maternal Grandmother Stroke Maternal Grandmother Colon Cancer No Family History REVIEW OF SYSTEMS: Constitutional: (+) Fever/Chills (+) Night Sweats (-) Weight Gain (-) Weight Loss (+) Fatigue Gastrointestinal: (-) Abdominal Pain (-) Diarrhea (-) Constipation (+) Nausea/Vomiting (+) Heart Burn Cardiovascular: (-) Chest Pain (-) Palpitations (+) Lightheadedness (-) Swelling of Ankles (-) Hx Heart Surgery/Stent Respiratory: (+) Short of Breath (-) Cough (+) Snoring Neurologic: (+) Headache (+) Blurry Vision (-) Fainting Skin: (-) Rashes (-) Itching (-) Other Lesions Psychiatric: (+) Depression (+) Anxiety (-) Suicidal Thoughts Genitourinary: (+) Frequency (+) Urgency Endocrine: (+) Thyroid Disorder (-) Diabetes Hematologic: (+) Prolonged Bleeding (+) Easy Bruising ########################################################################### ###################################################### PHYSICAL EXAM: Blood pressure 114/77, pulse 61, height 172.7 cm (5' 8 ), weight 70.3 kg (155 lb), SpO2 98 %. Body mass index is 23.57 kg/m?. General: Patient is a(n) good historian. The patient appears older than the recorded age and is sitting uncomfortably and leaning to the right side in the examining room. The patient is tall in stature and is average weight in appearance. This individual has difficulty arising from a sitting position and does have difficulty acquiring a full, upright position when standing. Station and Gait: flexed posture and antalgic gait leaning forward, favoring the left lower extremity, flexed posture and gait using a cane, and short strides The patient is unable to walk in a tandem gait. MENTAL STATUS EXAMINATION: The patient was very neatly dressed and smelled of cigarette smoke. The patient had fair eye contact and rapport was average to establish. The patient appeared to be alert and oriented in all spheres. The patient's overall medical judgment appeared to be fair.The patient's motivation for treatment was judged based on today's encounter to be good. SPINE: Lumbar Lordosis: Normal Thoracic Kyphosis: Normal PALPATION TENDERNESS: Severe tenderness at: lumbar region, posterior pelvis, and gluteal region Hyperesthesia present: Yes--axial spine Regional symptoms present: No Increased pain with axial loading: No Distraction: Normal Pain responses: elevated NEUROLOGIC EXAM: MOTOR: Requires verbal cues to minimize cog-wheel or give-way resistance: Yes Hip Flexor R: -4/5 L: -4/5 Hip Abductor R: 5/5 L: 5/5 Hip Adductor R: 5/5 L: 5/5 Knee Extension R: +4/5 L: +4/5 Foot Dorsiflexion R: +4/5 L: +4/5 Foot Plantar Flexion R: 5/5 L: 5/5 Ext Hallicus Longus R: +4/5 L: +4/5 Toe Extensors R: +4/5 L: +4/5 SENSATION to Light Touch: Lumbar: L5: R: Normal, L: Abnormal: Noted findings are decreased sensation to light touch within this dermatome. REFLEXES: Lower Extremity: Patella tendon: R: 1+ L: 1+ Achilles tendon: R: 0 L: 0 Clonus: R: 1-2 beats L: 1-2 beats Babinski Sign: Negative bilaterally. VASCULAR: Skin appearance: Right: Warm/pink Left: Warm/pink Capillary refill: Right: brisk Left: brisk ADDITIONAL MUSCULOSKELETAL EXAM: HIP/PELVIS EXAM: Tenderness over the PSIS: Right: Yes Left: Yes Greater Trochanteric pain: Right: Yes Left: Yes Pain: Right: No Left: No SPECIAL TESTS: Straight Leg Raise: positive on the left Contralateral Straight Leg Raise: negative bilaterally IMAGING STUDIES: See discussion above ALYSSAN Observed: 02/02/2023 12:00 AM Status: COMPLETED Source: [facility] REPOSITORY Telephone ([employer]) MARILUZ GARCIA ([id number]) 1970 F Date Time Provider Department 02/02/23 CARMELITA RAGSDALE [employer] During your visit today, we recorded the following information about you: Bria Burton MA 02/02/2023 12:14 PM Signed I called patient regarding her upcoming new patient appointment on 02/14/[address] Ragsdale. She was referred by her ELEVATOR CONSTRUCTOR Jenifer Yeager APRN. CNP for dense breasts [...] minutes early for paperwork. Bria Burton MA Allergies As of Date: 02/02/2023 Noted Allergy Reaction FENTANYL 08/22/2015 14 - Other: See Comments Comments: PATCH ONLY. Respiratory distress due to rapid absorption. CHANTIX (VARENICLINE) 09/30/2016 5 - Intolerance Comments: hallucinations Date Reviewed: 01/13/2023 Reviewed by: Deloris Troy MD - Fully Assessed Reason for Visit: Appointment [186] Prescriptions as of 02/02/2023 - L.acidophilus-L.rhamnosus (FLORAJEN WOMEN) 15 billion cell capsule Take 1 capsule by mouth once daily. - ibuprofen (MOTRIN) 800 mg tablet Take 1 tablet by mouth every 8 hours as needed for pain. Take with food. - amLODIPine (NORVASC) 10 mg tablet Take 1 tablet by mouth once daily. - budesonide-formoterol (SYMBICORT) 160-4.5 mcg/actuation inhaler Inhale 2 Puffs as instructed twice daily. - oxybutynin ER (DITROPAN XL) 10 mg 24 hr tablet TAKE 1 TABLET BY MOUTH DAILY - atorvastatin (LIPITOR) 40 mg tablet Take 1 tablet by mouth daily at bedtime. - pregabalin (LYRICA) 150 mg capsule Take one pill three times per day - mirabegron (MYRBETRIQ) 25 mg Tb24 Take 1 tablet by mouth once daily. - thiamine (VITAMIN B1) 100 mg tablet Take 1 tablet by mouth once daily. - tiotropium bromide (SPIRIVA RESPIMAT) 2.5 mcg/actuation inhaler Inhale 2 Puffs as instructed once daily. - Blood Pressure Monitor 1 Each once daily. ICD 10 code I10 - Blood Pressure Test Kit-Medium kit 1 Each once daily. - metoprolol succinate ER (TOPROL XL) 50 mg 24 hr tablet Take 1 tablet by mouth once daily. - cyanocobalamin (VITAMIN B-12) 1,000 mcg tab Take 1 tablet by mouth once daily. - OLANZapine (ZYPREXA) 5 mg tablet Take 1 tablet by mouth once daily. - buPROPion XL (WELLBUTRIN XL) 150 mg 24 hr tablet Take 1 tablet by mouth once daily. - traZODone (DESYREL) 150 mg tablet Take 1 tablet by mouth at bedtime as needed. - WALKER ROLLATOR SEAT WITH 6 WHEELS - RED For daily use. M54.40, G89.29 Chronic left-sided low back pain with sciatica, sciatica laterality unspecified (primary encounter diagnosis) M51.36 DDD (degenerative disc disease), lumbar M47.816 Lumbar spondylosis R26.81 Gait instability - Cholecalciferol, Vitamin D3, (VITAMIN D) 25 mcg (1,000 unit) cap Take 1 capsule by mouth once daily. - omeprazole (PRILOSEC) 20 mg capsule TAKE 1 CAPSULE BY MOUTH DAILY - albuterol HFA (VENTOLIN HFA) 90 mcg/actuation inhaler Inhale 2 Puffs as instructed every 4 hours as needed for wheezing/shortness of breath. - ferrous sulfate 325 mg (65 mg iron) tablet Take 1 tablet by mouth twice daily. - VITAMIN C 500 mg tablet - albuterol (PROVENTIL) 2.5 mg /3 mL (0.083 %) nebulizer solution Use 3 mL via nebulizer every 4 hours as needed for wheezing/shortness of breath. Use over 5-15minutes. - Nebulizers Use as directed. - levothyroxine (SYNTHROID) 25 mcg tablet Take 25 mcg by mouth daily before breakfast. - COMPOUNDED PRESCRIPTION Standard size Rollator Walker #1 Dx Large Blood Pressure Cuff #1 M51.36 DDD (degenerative disc disease), lumbar (primary encounter diagnosis) I10 Essential hypertension - COMPOUNDED PRESCRIPTION ADJUSTABLE CANE DX M51.36 Problem List As Of Date 02/02/2023 Noted Resolved Back pain [M54.9] DDD (degenerative disc disease), lumbar [M51.36] Emphysema of lung (HCC) [J43.9] Tobacco use disorder [F17.200] Hypertension [I10] GERD (gastroesophageal reflux disease) [K21.9] Carpal tunnel syndrome, bilateral [G56.03] 09/23/2015 Obesity [E66.9] Anemia [D64.9] 11/04/2015 Radiculopathy, lumbar region [M54.16] 11/05/2015 Alcohol abuse [F10.10] Chronic midline low back pain with left-sided s*04/21/2016 PE (pulmonary thromboembolism) (HCC) [I26.99] Hyperglycemia [R73.9] 07/14/2016 Stasis edema [I87.309] 07/28/2016 Right lumbar radiculopathy [M54.16] 08/11/2016 Obesity, Class III, BMI >= 40 (morbid obesity) *09/29/2016 Delusional disorder (HCC) [F22] 10/14/2016 Chronic low back pain with sciatica [M54.40, G8*06/07/2017 Abnormal echocardiogram [R93.1] 08/18/2017 Chronic left-sided low back pain with sciatica *11/29/2017 COPD (chronic obstructive pulmonary disease) wi*03/13/2018 Positive urine drug screen [R82.5] 08/16/2018 Encounter for support and coordination of trans*05/15/2020 05/02/2021 Mild protein-calorie malnutrition (HCC) [E44.1] 08/26/2020 11/12/2021 Lumbar spondylosis [M47.816] 02/26/2021 Cervical spondylosis without myelopathy [M47.81*02/26/2021 Encounter for support and coordination of trans*05/02/2021 07/23/2021 Other chest pain [R07.89] 10/21/2021 Stress incontinence [N39.3] 11/12/2021 Chronic active hepatitis C (HCC) [B18.2] 11/23/2021 History of colonic polyps [Z86.010] 11/23/2021 Traumatic closed nondisp torus fracture of dist*01/31/2022 Bacterial vaginosis [N76.0, B96.89] 02/02/2022 Spinal stenosis, lumbar region, without neuroge*02/24/2022 Cognitive impairment, mild, so stated [G31.84] 02/27/2022 Encounter Status:Closed by BRIA BURTON on 02/02/23 HARPREET Observed: 01/27/2023 12:00 AM Status: COMPLETED Source: [facility] REPOSITORY Telephone (KAITLYNN) BRITTONMARILUZ ([id number]) 1970 F Date Time Provider Department 01/27/23 URVASHI HUGHES During your visit today, we recorded the following information about you: Crystla PoolDEEPTHIAneesh 01/27/2023 9:08 AM Signed ----- Message from Urvashi Hughes APRN.APPLIED COMPUTER SCIENCE PROFESSOR sent at 01/27/2023 7:44 AM EDT ----- Please let pt know her MRI of the brain does not show any new changes or concerns. Results are unchanged since her previous image in 03/2022. No findings to explain her recent symptoms. Crystal Pool OCCA 01/27/2023 9:12 AM Signed TC to patient who verbalized understanding of providers message below with no questions at this time. Patient is asking that a academic intern contact her to assist with rescheduling her cancelled EEG as well as to set her up with the ordered Neuropsychological Testing ordered at [facility]. Please contact patient and assist with above. Thank you!. BETTY Fernandez GillianBETTY 01/31/2023 3:58 PM Signed In review of patient chart, all below have been scheduled. Nothing further at this time. Crystal BETTY Pool Allergies As of Date: 01/27/2023 Noted Allergy Reaction FENTANYL 08/22/2015 14 - Other: See Comments Comments: PATCH ONLY. Respiratory distress due to rapid absorption. CHANTIX (VARENICLINE) 09/30/2016 5 - Intolerance Comments: hallucinations Date Reviewed: 01/13/2023 Reviewed by: Deloris Troy MD - Fully Assessed Reason for Visit: Results [95] Prescriptions as of 01/31/2023 - L.acidophilus-L.rhamnosus (FLORAJEN WOMEN) 15 billion cell capsule Take 1 capsule by mouth once daily. - ibuprofen (MOTRIN) 800 mg tablet Take 1 tablet by mouth every 8 hours as needed for pain. Take with food. - amLODIPine (NORVASC) 10 mg tablet Take 1 tablet by mouth once daily. - budesonide-formoterol (SYMBICORT) 160-4.5 mcg/actuation inhaler Inhale 2 Puffs as instructed twice daily. - oxybutynin ER (DITROPAN XL) 10 mg 24 hr tablet TAKE 1 TABLET BY MOUTH DAILY - atorvastatin (LIPITOR) 40 mg tablet Take 1 tablet by mouth daily at bedtime. - pregabalin (LYRICA) 150 mg capsule Take one pill three times per day - mirabegron (MYRBETRIQ) 25 mg Tb24 Take 1 tablet by mouth once daily. - thiamine (VITAMIN B1) 100 mg tablet Take 1 tablet by mouth once daily. - tiotropium bromide (SPIRIVA RESPIMAT) 2.5 mcg/actuation inhaler Inhale 2 Puffs as instructed once daily. - Blood Pressure Monitor 1 Each once daily. ICD 10 code I10 - Blood Pressure Test Kit-Medium kit 1 Each once daily. - metoprolol succinate ER (TOPROL XL) 50 mg 24 hr tablet Take 1 tablet by mouth once daily. - cyanocobalamin (VITAMIN B-12) 1,000 mcg tab Take 1 tablet by mouth once daily. - OLANZapine (ZYPREXA) 5 mg tablet Take 1 tablet by mouth once daily. - buPROPion XL (WELLBUTRIN XL) 150 mg 24 hr tablet Take 1 tablet by mouth once daily. - traZODone (DESYREL) 150 mg tablet Take 1 tablet by mouth at bedtime as needed. - WALKER ROLLATOR SEAT WITH 6 WHEELS - RED For daily use. M54.40, G89.29 Chronic left-sided low back pain with sciatica, sciatica laterality unspecified (primary encounter diagnosis) M51.36 DDD (degenerative disc disease), lumbar M47.816 Lumbar spondylosis R26.81 Gait instability - Cholecalciferol, Vitamin D3, (VITAMIN D) 25 mcg (1,000 unit) cap Take 1 capsule by mouth once daily. - omeprazole (PRILOSEC) 20 mg capsule TAKE 1 CAPSULE BY MOUTH DAILY - albuterol HFA (VENTOLIN HFA) 90 mcg/actuation inhaler Inhale 2 Puffs as instructed every 4 hours as needed for wheezing/shortness of breath. - ferrous sulfate 325 mg (65 mg iron) tablet Take 1 tablet by mouth twice daily. - VITAMIN C 500 mg tablet - albuterol (PROVENTIL) 2.5 mg /3 mL (0.083 %) nebulizer solution Use 3 mL via nebulizer every 4 hours as needed for wheezing/shortness of breath. Use over 5-15minutes. - Nebulizers Use as directed. - levothyroxine (SYNTHROID) 25 mcg tablet Take 25 mcg by mouth daily before breakfast. - COMPOUNDED PRESCRIPTION Standard size Rollator Walker #1 Dx Large Blood Pressure Cuff #1 M51.36 DDD (degenerative disc disease), lumbar (primary encounter diagnosis) I10 Essential hypertension - COMPOUNDED PRESCRIPTION ADJUSTABLE CANE DX M51.36 Problem List As Of Date 01/27/2023 Noted Resolved Back pain [M54.9] DDD (degenerative disc disease), lumbar [M51.36] Emphysema of lung (HCC) [J43.9] Tobacco use disorder [F17.200] Hypertension [I10] GERD (gastroesophageal reflux disease) [K21.9] Carpal tunnel syndrome, bilateral [G56.03] 09/23/2015 Obesity [E66.9] Anemia [D64.9] 11/04/2015 Radiculopathy, lumbar region [M54.16] 11/05/2015 Alcohol abuse [F10.10] Chronic midline low back pain with left-sided s*04/21/2016 PE (pulmonary thromboembolism) (HCC) [I26.99] Hyperglycemia [R73.9] 07/14/2016 Stasis edema [I87.309] 07/28/2016 Right lumbar radiculopathy [M54.16] 08/11/2016 Obesity, Class III, BMI >= 40 (morbid obesity) *09/29/2016 Delusional disorder (HCC) [F22] 10/14/2016 Chronic low back pain with sciatica [M54.40, G8*06/07/2017 Abnormal echocardiogram [R93.1] 08/18/2017 Chronic left-sided low back pain with sciatica *11/29/2017 COPD (chronic obstructive pulmonary disease) wi*03/13/2018 Positive urine drug screen [R82.5] 08/16/2018 Encounter for support and coordination of trans*05/15/2020 05/02/2021 Mild protein-calorie malnutrition (HCC) [E44.1] 08/26/2020 11/12/2021 Lumbar spondylosis [M47.816] 02/26/2021 Cervical spondylosis without myelopathy [M47.81*02/26/2021 Encounter for support and coordination of trans*05/02/2021 07/23/2021 Other chest pain [R07.89] 10/21/2021 Stress incontinence [N39.3] 11/12/2021 Chronic active hepatitis C (HCC) [B18.2] 11/23/2021 History of colonic polyps [Z86.010] 11/23/2021 Traumatic closed nondisp torus fracture of dist*01/31/2022 Bacterial vaginosis [N76.0, B96.89] 02/02/2022 Spinal stenosis, lumbar region, without neuroge*02/24/2022 Cognitive impairment, mild, so stated [G31.84] 02/27/2022 Encounter Status:Closed by CRYSTAL POOL on 01/31/23 MRI BRAIN WO IVCON Observed: 01/26/2023 11:57 AM Status: F Source: [facility] REPOSITORY * * *Final Report* * * DATE OF EXAM: Jan 26 2023 11:57AM WRM [id number] - MRI BRAIN WO IVCON / PROCEDURE REASON: multiple diagnoses * * * * Physician Interpretation * * * * EXAMINATION: MRI BRAIN WO IVCON CLINICAL HISTORY: Cognitive decline. Balance problems and multiple falls. TECHNIQUE: Routine noncontrast MRI protocol including diffusion images. MQ: [id number] COMPARISON: MRI 03/22/2022 RESULT: Acute Change: There is no evidence of an acute intracranial process. Hemorrhage: No evidence of prior parenchymal hemorrhage on the susceptibility weighted images. Mass Lesion/ Mass Effect: No evidence of [...] suggesting patency by spin echo criteria. Other: Mucosal thickening versus polyp in the right maxillary sinus, unchanged. Otherwise, the visualized paranasal sinuses are clear. Trace effusion in the left mastoid air cells. The orbits and extracranial soft tissues are unremarkable. IMPRESSION: No acute intracranial process or mass effect. Otherwise essentially normal, age appropriate appearance of the brain that is not substantially changed compared to 03/22/2022. Maintenance Of Way Superintendent: CJ Transcribe Date/Time: Jan 26 2023 12:15P Dictated by : ROSEMARIE GROSSMAN, DO This examination was interpreted and the report reviewed and electronically signed by: OBDULIO DURAN MD on Jan 26 2023 2:13PM EST [id number] PROGRESS Observed: 01/26/2023 11:20 AM Status: COMPLETED Source: [facility] REPOSITORY HNO ID: [id number] Author: Bharti Gant RT(R) Service: ? Author [...] PERIPHERAL IV DATA: Not applicable SIGNED BY: JANNA Knowles) January 26, 2023 11:39 AM [facility] Observed: 01/14/2023 12:00 AM Status: COMPLETED Source: [facility] REPOSITORY Telephone ([id number]) MARILUZ GARCIA ([id number]) 1970 F Date Time Provider Department 7/28/23 DELORIS TROY AGSPINE3 During your visit today, we recorded the following information about you: Wolfgang Villegas 01/14/2023 2:48 PM Signed Patient has called in asking for a release of care from our office as she will be going to a different Pain Management. She will also be going to the [place] office on to fill out the medical records release form. Please advise. Wolfgang Villegas Deloris Troy MD 01/14/2023 3:20 PM Signed Letter written. Does she need to cancel her injection in [place] on 01/19? Deloris Troy III, [place], [place] Allergies As of Date: 01/14/2023 Noted Allergy Reaction FENTANYL 08/22/2015 14 - Other: See Comments Comments: PATCH ONLY. Respiratory distress due to rapid absorption. CHANTIX (VARENICLINE) 09/30/2016 5 - Intolerance Comments: hallucinations Date Reviewed: 01/13/2023 Reviewed by: Deloris Troy MD - Fully Assessed Reason for Visit: Patient Update [1234] Cmt: Release of care Prescriptions as of 01/14/2023 - budesonide-formoterol (SYMBICORT) 160-4.5 mcg/actuation inhaler Inhale 2 Puffs as instructed twice daily. - oxybutynin ER (DITROPAN XL) 10 mg 24 hr tablet TAKE 1 TABLET BY MOUTH DAILY - atorvastatin (LIPITOR) 40 mg tablet Take 1 tablet by mouth daily at bedtime. - pregabalin (LYRICA) 150 mg capsule Take one pill three times per day - mirabegron (MYRBETRIQ) 25 mg Tb24 Take 1 tablet by mouth once daily. - thiamine (VITAMIN B1) 100 mg tablet Take 1 tablet by mouth once daily. - tiotropium bromide (SPIRIVA RESPIMAT) 2.5 mcg/actuation inhaler Inhale 2 Puffs as instructed once daily. - amLODIPine (NORVASC) 10 mg tablet Take 1 tablet by mouth once daily. - Blood Pressure Monitor 1 Each once daily. ICD 10 code I10 - ibuprofen (MOTRIN) 800 mg tablet Take 1 tablet by mouth every 8 hours as needed for pain. Take with food. - Blood Pressure Test Kit-Medium kit 1 Each once daily. - metoprolol succinate ER (TOPROL XL) 50 mg 24 hr tablet Take 1 tablet by mouth once daily. - cyanocobalamin (VITAMIN B-12) 1,000 mcg tab Take 1 tablet by mouth once daily. - OLANZapine (ZYPREXA) 5 mg tablet Take 1 tablet by mouth once daily. - buPROPion XL (WELLBUTRIN XL) 150 mg 24 hr tablet Take 1 tablet by mouth once daily. - traZODone (DESYREL) 150 mg tablet Take 1 tablet by mouth at bedtime as needed. - WALKER ROLLATOR SEAT WITH 6 WHEELS - RED For daily use. M54.40, G89.29 Chronic left-sided low back pain with sciatica, sciatica laterality unspecified (primary encounter diagnosis) M51.36 DDD (degenerative disc disease), lumbar M47.816 Lumbar spondylosis R26.81 Gait instability - Cholecalciferol, Vitamin D3, (VITAMIN D) 25 mcg (1,000 unit) cap Take 1 capsule by mouth once daily. - omeprazole (PRILOSEC) 20 mg capsule TAKE 1 CAPSULE BY MOUTH DAILY - albuterol HFA (VENTOLIN HFA) 90 mcg/actuation inhaler Inhale 2 Puffs as instructed every 4 hours as needed for wheezing/shortness of breath. - ferrous sulfate 325 mg (65 mg iron) tablet Take 1 tablet by mouth twice daily. - L. acidophilus-L. rhamnosus (FLORAJEN WOMEN) 15 billion cell cap Take 1 capsule by mouth once daily. - VITAMIN C 500 mg tablet - albuterol (PROVENTIL) 2.5 mg /3 mL (0.083 %) nebulizer solution Use 3 mL via nebulizer every 4 hours as needed for wheezing/shortness of breath. Use over 5-15minutes. - Nebulizers Use as directed. - levothyroxine (SYNTHROID) 25 mcg tablet Take 25 mcg by mouth daily before breakfast. - COMPOUNDED PRESCRIPTION Standard size Rollator Walker #1 Dx Large Blood Pressure Cuff #1 M51.36 DDD (degenerative disc disease), lumbar (primary encounter diagnosis) I10 Essential hypertension - COMPOUNDED PRESCRIPTION ADJUSTABLE CANE DX M51.36 Problem List As Of Date 01/14/2023 Noted Resolved Back pain [M54.9] DDD (degenerative disc disease), lumbar [M51.36] Emphysema of lung (HCC) [J43.9] Tobacco use disorder [F17.200] Hypertension [I10] GERD (gastroesophageal reflux disease) [K21.9] Carpal tunnel syndrome, bilateral [G56.03] 09/23/2015 Obesity [E66.9] Anemia [D64.9] 11/04/2015 Radiculopathy, lumbar region [M54.16] 11/05/2015 Alcohol abuse [F10.10] Chronic midline low back pain with left-sided s*04/21/2016 PE (pulmonary thromboembolism) (HCC) [I26.99] Hyperglycemia [R73.9] 07/14/2016 Stasis edema [I87.309] 07/28/2016 Right lumbar radiculopathy [M54.16] 08/11/2016 Obesity, Class III, BMI >= 40 (morbid obesity) *09/29/2016 Delusional disorder (HCC) [F22] 10/14/2016 Chronic low back pain with sciatica [M54.40, G8*06/07/2017 Abnormal echocardiogram [R93.1] 08/18/2017 Chronic left-sided low back pain with sciatica *11/29/2017 COPD (chronic obstructive pulmonary disease) wi*03/13/2018 Positive urine drug screen [R82.5] 08/16/2018 Encounter for support and coordination of trans*05/15/2020 05/02/2021 Mild protein-calorie malnutrition (HCC) [E44.1] 08/26/2020 11/12/2021 Lumbar spondylosis [M47.816] 02/26/2021 Cervical spondylosis without myelopathy [M47.81*02/26/2021 Encounter for support and coordination of trans*05/02/2021 07/23/2021 Other chest pain [R07.89] 10/21/2021 Stress incontinence [N39.3] 11/12/2021 Chronic active hepatitis C (HCC) [B18.2] 11/23/2021 History of colonic polyps [Z86.010] 11/23/2021 Traumatic closed nondisp torus fracture of dist*01/31/2022 Bacterial vaginosis [N76.0, B96.89] 02/02/2022 Spinal stenosis, lumbar region, without neuroge*02/24/2022 Cognitive impairment, mild, so stated [G31.84] 02/27/2022 Encounter Status:Closed by WOLFGANG VILLEGAS on 01/14/23 PROGRESS Observed: 01/04/2023 1:09 PM Status: COMPLETED Source: [facility] REPOSITORY HNO ID: [id number] Author: Jaimee Palomares PA-C Service: ? Author Type: Physician Living Supervisor Type: Progress Notes Filed: 01/05/2023 1:49 PM Note Text: 52 year old female with c/o ER hospital follow-up 12/29/2022 presented to [facility] emergency department with complaint of [...] walk and bear weight after. Persistent headache, 8-9/10, pain in neck with popping on turning. [...] care 05/15/2020 HOSPITAL/ER FOLLOW UP Which facility: [facility] Dates of visit: 05/10-05/13/2020 Preadmission evaluation: [...] of admission 05/01/2021 Date of discharge: Facility: [facility] 05/01/2021 presented to the emergency room with acute alcohol intoxication, initial alcohol level 7-8. Acknowledges over the last 5 months drinking 15 packs a day at 8% alcohol (marcin samaniego). Vital signs 96.6 F-78-18-111/73-98%. Appearance was no acute distress. WBC 7.9-Hgb 13.8-HCT 39 Encounter for support and coordination of transition of care 05/05/2022 05/05/2022 patient called squad, transported to [facility] with lightheadedness and multiple syncopal episodes one of them resulting in injury to her right foot. GERD (gastroesophageal reflux disease) Hyperglycemia Hypertension Lung abscess ([facility]) saw Néstor iL and Dr. Zarate. Major depression Mild protein-calorie malnutrition (HCC) 08/26/2020 Obesity PE (pulmonary thromboembolism) ([facility]) PTSD (post-traumatic stress disorder) Snoring Tobacco use [...] 11/21/2015 Carpal tunnel decomp OVARIAN CYSTECTOMY UNI/BI 1997 left oophorectomy and 20# cyst PAST SURGICAL HISTORY OF 07/2012 Lumbar discectomy L3-L4 PAST SURGICAL HISTORY OF 09/2012 repeat lumbar surgery PAST SURGICAL HISTORY OF Right 12/2021 Wrist due to fracture (steel plate and 17 screws) SKIN GRAFT,SCALP,ARMS,LEGS 12/2013 bilateral posterior thigh autograft, fell in firepit TONSILLECTOMY AND ADENOIDECTOMY <AGE 10 1979 Social History Tobacco Use Smoking status: Every Day Packs/day: 0.25 Years: 32.00 Total pack years: 8.00 Types: Cigarettes Smokeless [...] Current Outpatient Medications Medication Sig Dispense Refill amLODIPine (NORVASC) 10 mg tablet Take 1 tablet by mouth once daily. ibuprofen (MOTRIN) 800 mg tablet Take 1 tablet by mouth every 8 hours as needed for pain. Take with food. 30 tablet 1 metoprolol succinate ER (TOPROL XL) 50 mg 24 hr tablet Take 1 tablet by mouth once daily. 30 tablet 3 oxybutynin ER (DITROPAN XL) 10 mg 24 hr tablet Take 1 tablet by mouth once daily. 30 tablet 1 cyanocobalamin (VITAMIN B-12) 1,000 mcg tab Take 1 tablet by mouth once daily. 90 tablet 1 OLANZapine (ZYPREXA) 5 mg tablet Take 1 tablet by mouth once daily. buPROPion XL (WELLBUTRIN XL) 150 mg 24 hr tablet Take 1 tablet by mouth once daily. traZODone (DESYREL) 150 mg tablet Take 1 tablet by mouth at bedtime as needed. Cholecalciferol, Vitamin D3, (VITAMIN D) 25 mcg [...] by mouth once daily. 30 capsule 1 VITAMIN C 500 mg tablet albuterol (PROVENTIL) 2.5 mg /3 mL (0.083 %) nebulizer solution Use 3 mL via nebulizer every 4 hours as needed for wheezing/shortness of breath. Use over 5-15minutes. 120 mL 5 levothyroxine (SYNTHROID) 25 mcg tablet Take 25 mcg by mouth daily before breakfast. Blood Pressure Monitor 1 Each once daily. ICD 10 code I10 (Patient not taking: Reported on 12/16/2022) 1 Kit 0 Blood Pressure Test Kit-Medium kit 1 Each once daily. (Patient not taking: Reported on 12/16/2022) 1 Kit 0 WALKER ROLLATOR SEAT WITH 6 WHEELS - RED For daily use. M54.40, G89.29 Chronic left-sided low back pain with sciatica, sciatica laterality unspecified (primary encounter diagnosis) M51.36 DDD (degenerative disc disease), lumbar M47.816 Lumbar spondylosis R26.81 Gait instability 1 Each 0 Nebulizers Use as directed. 1 Each 0 COMPOUNDED PRESCRIPTION Standard size Rollator Walker #1 Dx Large Blood Pressure Cuff #1 M51.36 DDD (degenerative disc disease), lumbar (primary encounter diagnosis) I10 Essential hypertension 1 Each 0 COMPOUNDED PRESCRIPTION ADJUSTABLE CANE DX M51.36 1 Device 0 No current facility-administered medications for this visit. HEPATITIS B(1 of 3 - 3-dose series) Never done SPIROMETRY Never done BP CONTROLLED (<130/80) Never done HEPATITIS A(1 of 2 - Risk 2-dose series) Never done ALPHA-1 ANTITRYPSIN DEFICIENCY SCREENING Never done EXAM: BP 132/80 Pulse 74 Resp 20 Wt 71.2 kg (157 lb) SpO2 96% BMI 23.18 kg/m? Pleasant adult woman in no acute distress. [...] warm and pink with prompt capillary refill. Patient does have restricted range of motion in her right hip with flexion to 90 degrees with pain, pain with internal and external rotation of the hip. She does have a slight lag on her gait. This is not new and has been addressed previously. ASSESSMENT/PLAN: 1. Primary osteoarthritis of right hip - ICD9: 715.15, ICD10: M16.11 - CONSULT TO ORTHOPAEDICS Discussed management. I explained to the patient once again that I do not prescribe chronic narcotics without pain management oversight. She will have to discuss pain management issues with her current provider Dr. Staley. If she wishes to explore outside options she has the freedom to do so but I advised her that I think it is unlikely that Dr. Staley will provide narcotics for her either. She continues to smoke marijuana, has a strong history of alcohol and episodic cocaine use in the past. We discussed the possibility of pain rehab the patient is not interested. We discussed weaning off pregabalin since it has no benefit, patient does not want to do this unless I am willing to provide something else. She understands my thinking and is not upset with me particularly, just upset with being in pain. They really were not able to address anything else and constraints M Cici Palomares, PA-C CNOV Observed: 01/04/2023 1:00 PM Status: COMPLETED Source: [facility] REPOSITORY [facility] MARILUZ GARCIA ([id number]) 1970 F Date Time Provider Department 01/04/23 1:00 PM Jaimee PALOMARES During your visit today, we recorded the following information about you: Pulse Respiration Blood pressure Weight 74/minute 20/minute 132/80 71.2 kg Jaimee Palomares PA-C 01/05/2023 1:49 PM Signed 52 year old female with c/o ER hospital follow-up 12/29/2022 presented to [facility] emergency department with complaint of [...] walk and bear weight after. Persistent headache, 8-9/10, pain in neck with popping on turning. [...] care 05/15/2020 HOSPITAL/ER FOLLOW UP Which facility: [facility] Dates of visit: 05/10-05/13/2020 Preadmission evaluation: [...] of admission 05/01/2021 Date of discharge: Facility: [facility] 05/01/2021 presented to the emergency room with acute alcohol intoxication, initial alcohol level 7-8. Acknowledges over the last 5 months drinking 15 packs a day at 8% alcohol (marcin samaniego). Vital signs 96.6 F-78-18-111/73-98%. Appearance was no acute distress. WBC 7.9-Hgb 13.8-HCT 39 Encounter for support and coordination of transition of care 05/05/2022 05/05/2022 patient called squad, transported to [facility] with lightheadedness and multiple syncopal [...] HX 1989's LAPAROSCOPY SURG CHOLECYSTECTOMY 05/12/2020 NEUROPLASTY AND/TRANSPOS MEDIAN [...] autograft, fell in firepit TONSILLECTOMY AND ADENOIDECTOMY <AGE 10 1979 Social History Tobacco Use Smoking status: Every Day Packs/day: 0.25 Years: 32.00 Total pack years: 8.00 Types: Cigarettes Smokeless [...] Pain With Left-Sided Sciatica Pe (Pulmonary Thromboembolism) ([facility]) Hyperglycemia Stasis Edema Right Lumbar Radiculopathy Obesity, Class III, BMI >= 40 (morbid obesity) E66.01 Delusional Disorder ([facility]) Chronic Low Back Pain With Sciatica Abnormal Echocardiogram Chronic Left-Sided Low Back Pain With Sciatica Copd (Chronic Obstructive Pulmonary Disease) With Chronic Bronchitis ([facility]) Positive Urine Drug Screen Lumbar Spondylosis Cervical Spondylosis Without Myelopathy Other Chest Pain Stress Incontinence Chronic Active Hepatitis C ([facility]) History of Colonic Polyps Traumatic Closed Nondisp Torus Fracture of Distal Radial Metaphysis, Right, With Routine Healing, Subsequent Encounter Bacterial Vaginosis Spinal Stenosis, Lumbar Region, Without Neurogenic Claudication Cognitive Impairment, Mild, So Stated Current Outpatient Medications Medication Sig Dispense Refill amLODIPine (NORVASC) 10 mg tablet Take 1 tablet by mouth once daily. ibuprofen (MOTRIN) 800 mg tablet Take 1 tablet by mouth every 8 hours as needed for pain. Take with food. 30 tablet 1 metoprolol succinate ER (TOPROL XL) 50 mg 24 hr tablet Take 1 tablet by mouth once daily. 30 tablet 3 oxybutynin ER (DITROPAN XL) 10 mg 24 hr tablet Take 1 tablet by mouth once daily. 30 tablet 1 cyanocobalamin (VITAMIN B-12) 1,000 mcg tab Take 1 tablet by mouth once daily. 90 tablet 1 OLANZapine (ZYPREXA) 5 mg tablet Take 1 tablet by mouth once daily. buPROPion XL (WELLBUTRIN XL) 150 mg 24 hr tablet Take 1 tablet by mouth once daily. traZODone (DESYREL) 150 mg tablet Take 1 tablet by mouth at bedtime as needed. Cholecalciferol, Vitamin D3, (VITAMIN D) 25 mcg [...] by mouth once daily. 30 capsule 1 VITAMIN C 500 mg tablet albuterol (PROVENTIL) 2.5 mg /3 mL (0.083 %) nebulizer solution Use 3 mL via nebulizer every 4 hours as needed for wheezing/shortness of breath. Use over 5-15minutes. 120 mL 5 levothyroxine (SYNTHROID) 25 mcg tablet Take 25 mcg by mouth daily before breakfast. Blood Pressure Monitor 1 Each once daily. ICD 10 code I10 (Patient not taking: Reported on 12/16/2022) 1 Kit 0 Blood Pressure Test Kit-Medium kit 1 Each once daily. (Patient not taking: Reported on 12/16/2022) 1 Kit 0 WALKER ROLLATOR SEAT WITH 6 WHEELS - RED For daily use. M54.40, G89.29 Chronic left-sided low back pain with sciatica, sciatica laterality unspecified (primary encounter diagnosis) M51.36 DDD (degenerative disc disease), lumbar M47.816 Lumbar spondylosis R26.81 Gait instability 1 Each 0 Nebulizers Use as directed. 1 Each 0 COMPOUNDED PRESCRIPTION Standard size Rollator Walker #1 Dx Large Blood Pressure Cuff #1 M51.36 DDD (degenerative disc disease), lumbar (primary encounter diagnosis) I10 Essential hypertension 1 Each 0 COMPOUNDED PRESCRIPTION ADJUSTABLE CANE DX M51.36 1 Device 0 No current facility-administered medications for this visit. HEPATITIS B(1 of 3 - 3-dose series) Never done SPIROMETRY Never done BP CONTROLLED (<130/80) Never done HEPATITIS A(1 of 2 - Risk 2-dose series) Never done ALPHA-1 ANTITRYPSIN DEFICIENCY SCREENING Never done EXAM: BP 132/80 Pulse 74 Resp 20 Wt 71.2 kg (157 lb) SpO2 96% BMI 23.18 kg/m? Pleasant adult woman in no acute distress. [...] warm and pink with prompt capillary refill. Patient does have restricted range of motion in her right hip with flexion to 90 degrees with pain, pain with internal and external rotation of the hip. She does have a slight lag on her gait. This is not new and has been addressed previously. ASSESSMENT/PLAN: 1. Primary osteoarthritis of right hip - ICD9: 715.15, ICD10: M16.11 - CONSULT TO ORTHOPAEDICS Discussed management. I explained to the patient once again that I do not prescribe chronic narcotics without pain management oversight. She will have to discuss pain management issues with her current provider Dr. Staley. If she wishes to explore outside options she has the freedom to do so but I advised her that I think it is unlikely that Dr. Staley will provide narcotics for her either. She continues to smoke marijuana, has a strong history of alcohol and episodic cocaine use in the past. We discussed the possibility of pain rehab the patient is not interested. We discussed weaning off pregabalin since it has no benefit, patient does not want to do this unless I am willing to provide something else. She understands my thinking and is not upset with me particularly, just upset with being in pain. They really were not able to address anything else and constraints M Cici Palomares PA-C Allergies As of Date: 01/04/2023 Noted Allergy Reaction FENTANYL 08/22/2015 14 - Other: See Comments Comments: PATCH ONLY. Respiratory distress due to rapid absorption. CHANTIX (VARENICLINE) 09/30/2016 5 - Intolerance Comments: hallucinations Date Reviewed: 01/04/2023 Reviewed by: Bharti Perry Ma - Fully Assessed Reason for Visit: ED Follow-up [821] Cmt: [facility] 12/29/22 Hypertension [168] Primary Visit Diagnosis:Primary osteoarthritis of right hip [M16.11] Other Visit Diagnosis:Hospital discharge follow-up [Z09] Order(s):CONSULT TO ORTHOPAEDICS [9051] Order #: [id number]: 1 FUTURE Prescriptions as of 01/05/2023 - oxybutynin ER (DITROPAN XL) 10 mg 24 hr tablet TAKE 1 TABLET BY MOUTH DAILY - atorvastatin (LIPITOR) 40 mg tablet Take 1 tablet by mouth daily at bedtime. - pregabalin (LYRICA) 150 mg capsule Take one pill three times per day - mirabegron (MYRBETRIQ) 25 mg Tb24 Take 1 tablet by mouth once daily. - thiamine (VITAMIN B1) 100 mg tablet Take 1 tablet by mouth once daily. - tiotropium bromide (SPIRIVA RESPIMAT) 2.5 mcg/actuation inhaler Inhale 2 Puffs as instructed once daily. - amLODIPine (NORVASC) 10 mg tablet Take 1 tablet by mouth once daily. - Blood Pressure Monitor 1 Each once daily. ICD 10 code I10 - ibuprofen (MOTRIN) 800 mg tablet Take 1 tablet by mouth every 8 hours as needed for pain. Take with food. - Blood Pressure Test Kit-Medium kit 1 Each once daily. - metoprolol succinate ER (TOPROL XL) 50 mg 24 hr tablet Take 1 tablet by mouth once daily. - cyanocobalamin (VITAMIN B-12) 1,000 mcg tab Take 1 tablet by mouth once daily. - OLANZapine (ZYPREXA) 5 mg tablet Take 1 tablet by mouth once daily. - buPROPion XL (WELLBUTRIN XL) 150 mg 24 hr tablet Take 1 tablet by mouth once daily. - traZODone (DESYREL) 150 mg tablet Take 1 tablet by mouth at bedtime as needed. - WALKER ROLLATOR SEAT WITH 6 WHEELS - RED For daily use. M54.40, G89.29 Chronic left-sided low back pain with sciatica, sciatica laterality unspecified (primary encounter diagnosis) M51.36 DDD (degenerative disc disease), lumbar M47.816 Lumbar spondylosis R26.81 Gait instability - Cholecalciferol, Vitamin D3, (VITAMIN D) 25 mcg (1,000 unit) cap Take 1 capsule by mouth once daily. - omeprazole (PRILOSEC) 20 mg capsule TAKE 1 CAPSULE BY MOUTH DAILY - albuterol HFA (VENTOLIN HFA) 90 mcg/actuation inhaler Inhale 2 Puffs as instructed every 4 hours as needed for wheezing/shortness of breath. - ferrous sulfate 325 mg (65 mg iron) tablet Take 1 tablet by mouth twice daily. - budesonide-formoterol (SYMBICORT) 160-4.5 mcg/actuation inhaler Inhale 2 Puffs as instructed twice daily. - L. acidophilus-L. rhamnosus (FLORAJEN WOMEN) 15 billion cell cap Take 1 capsule by mouth once daily. - VITAMIN C 500 mg tablet - albuterol (PROVENTIL) 2.5 mg /3 mL (0.083 %) nebulizer solution Use 3 mL via nebulizer every 4 hours as needed for wheezing/shortness of breath. Use over 5-15minutes. - Nebulizers Use as directed. - levothyroxine (SYNTHROID) 25 mcg tablet Take 25 mcg by mouth daily before breakfast. - COMPOUNDED PRESCRIPTION Standard size Rollator Walker #1 Dx Large Blood Pressure Cuff #1 M51.36 DDD (degenerative disc disease), lumbar (primary encounter diagnosis) I10 Essential hypertension - COMPOUNDED PRESCRIPTION ADJUSTABLE CANE DX M51.36 Problem List As Of Date 01/04/2023 Noted Resolved Back pain [M54.9] DDD (degenerative disc disease), lumbar [M51.36] Emphysema of lung (HCC) [J43.9] Tobacco use disorder [F17.200] Hypertension [I10] GERD (gastroesophageal reflux disease) [K21.9] Carpal tunnel syndrome, bilateral [G56.03] 09/23/2015 Obesity [E66.9] Anemia [D64.9] 11/04/2015 Radiculopathy, lumbar region [M54.16] 11/05/2015 Alcohol abuse [F10.10] Chronic midline low back pain with left-sided s*04/21/2016 PE (pulmonary thromboembolism) (HCC) [I26.99] Hyperglycemia [R73.9] 07/14/2016 Stasis edema [I87.309] 07/28/2016 Right lumbar radiculopathy [M54.16] 08/11/2016 Obesity, Class III, BMI >= 40 (morbid obesity) *09/29/2016 Delusional disorder (HCC) [F22] 10/14/2016 Chronic low back pain with sciatica [M54.40, G8*06/07/2017 Abnormal echocardiogram [R93.1] 08/18/2017 Chronic left-sided low back pain with sciatica *11/29/2017 COPD (chronic obstructive pulmonary disease) wi*03/13/2018 Positive urine drug screen [R82.5] 08/16/2018 Encounter for support and coordination of trans*05/15/2020 05/02/2021 Mild protein-calorie malnutrition (HCC) [E44.1] 08/26/2020 11/12/2021 Lumbar spondylosis [M47.816] 02/26/2021 Cervical spondylosis without myelopathy [M47.81*02/26/2021 Encounter for support and coordination of trans*05/02/2021 07/23/2021 Other chest pain [R07.89] 10/21/2021 Stress incontinence [N39.3] 11/12/2021 Chronic active hepatitis C (HCC) [B18.2] 11/23/2021 History of colonic polyps [Z86.010] 11/23/2021 Traumatic closed nondisp torus fracture of dist*01/31/2022 Bacterial vaginosis [N76.0, B96.89] 02/02/2022 Spinal stenosis, lumbar region, without neuroge*02/24/2022 Cognitive impairment, mild, so stated [G31.84] 02/27/2022 Medications Discontinued During This Encounter Prescriptions - lisinopril (ZESTRIL, PRINIVIL) 20 mg tablet (Discontinued) Reported on 12/16/2022 Encounter Status:Closed by Jaimee PALOMARES on 01/05/23 ALYSSAN Observed: 12/23/2022 12:00 AM Status: COMPLETED Source: [facility] REPOSITORY Telephone ([id number]) MARILUZ GARCIA ([id number]) 1970 F Date Time Provider Department 12/23/22 DELORIS TROY AGSPINE3 During your visit today, we recorded the following information about you: [place] 12/23/2022 9:02 AM Signed Patient Last Name BRITTON Patient First Name MARILUZ Date of 1970 Clinical Clearance / Financial Clearance Status Pending Clinical Clearance Notifications are supported by our hira policy and used when an immediate payer source is not available. The CCN process can allow cases to be completed while still working to obtain payer?s authorization due to urgency or medical necessity. [...] request does not meet the guidelines.Guidelines used: [place] Administrative Code Rule 5160-4-12 Immunizations, injections and infusions (including trigger-point injections), skin substitutes, and provider-administered pharmaceuticals; [place] Administrative Code 5160-1-01; Jv Trigger Point Injections (MM-0011) Date of Service 01/13/23 Is Peer to Peer Available? (Instructions below) Yes Peer to Peer Deadline Until (5 business days) Appeal Deadline (Instructions below) 180 calendars days from 12/18/22 Insurance Case Information Insurance Name Jv Patient's Insurance Case# [id number] Ordering Provider DELORIS TROY Approved Services Denied Services (CPT?) - TRIGGER POINT INJECTION MULTI 3+ MUSCLE GRP Alternative Recommendation N/A *Service which can be approved in place of denied service. Clinical Documentation Provided Peer to Peer Instructions Peer to Peer opt 1 Does Peer to Peer need to be scheduled? Yes, by leaving a voice mail requesting a call back. Who can complete the Peer to Peer? Dr, PA, P 3 ARMAMENT/ORDNANCE IMA TECHNICIAN, LN Additional Peer to Peer Instructions You [...] for appeal submission. Facility Information Location [facility] [id number] Tax ID# [id number] Wolfgang Villegas 12/23/2022 9:14 AM Signed Please advise on how you would like to proceed. Wolfgang Troy MD 12/23/2022 1:57 PM Signed MRI shows new large left-sided L5-S1 disc herniation. Will plan epidural and Electrodiagnostic Study. Deloris Troy III, [place], [place] Deloris Troy MD 12/23/2022 1:59 PM Signed Addended by: DELORIS TROY on: 12/23/2022 01:59 PM Modules accepted: Orders Wolfgang Villegas 12/23/2022 3:32 PM Signed Patient has been cancelled for the TPI and scheduled for the other procedures. Wolfgang Villegas Allergies As of Date: 12/23/2022 Noted Allergy Reaction FENTANYL 08/22/2015 14 - Other: See Comments Comments: PATCH ONLY. Respiratory distress due to rapid absorption. CHANTIX (VARENICLINE) 09/30/2016 5 - Intolerance Comments: hallucinations Date Reviewed: 12/23/2022 Reviewed by: Deloris Troy MD - Fully Assessed Reason for Visit: Insurance Denial [Other] Primary Visit Diagnosis:Displacement of lumbar intervertebral disc without myelopathy [M51.26] Other Visit Diagnosis:Radiculopathy, lumbar region [M54.16] Order(s):PRE-CERT ORDER (AG) [7180263] Order #: [id number]: 1 PRE-CERT ORDER (AG) [[id number]] Order #: [id number]: 1 Prescriptions as of 12/23/2022 - Blood Pressure Monitor 1 Each once daily. ICD 10 code I10 - ibuprofen (MOTRIN) 800 mg tablet Take 1 tablet by mouth every 8 hours as needed for pain. Take with food. - Blood Pressure Test Kit-Medium kit 1 Each once daily. - metoprolol succinate ER (TOPROL XL) 50 mg 24 hr tablet Take 1 tablet by mouth once daily. - oxybutynin ER (DITROPAN XL) 10 mg 24 hr tablet Take 1 tablet by mouth once daily. - cyanocobalamin (VITAMIN B-12) 1,000 mcg tab Take 1 tablet by mouth once daily. - OLANZapine (ZYPREXA) 5 mg tablet Take 1 tablet by mouth once daily. - buPROPion XL (WELLBUTRIN XL) 150 mg 24 hr tablet Take 1 tablet by mouth once daily. - traZODone (DESYREL) 150 mg tablet Take 1 tablet by mouth at bedtime as needed. - WALKER ROLLATOR SEAT WITH 6 WHEELS - RED For daily use. M54.40, G89.29 Chronic left-sided low back pain with sciatica, sciatica laterality unspecified (primary encounter diagnosis) M51.36 DDD (degenerative disc disease), lumbar M47.816 Lumbar spondylosis R26.81 Gait instability - Cholecalciferol, Vitamin D3, (VITAMIN D) 25 mcg (1,000 unit) cap Take 1 capsule by mouth once daily. - omeprazole (PRILOSEC) 20 mg capsule TAKE 1 CAPSULE BY MOUTH DAILY - albuterol HFA (VENTOLIN HFA) 90 mcg/actuation inhaler Inhale 2 Puffs as instructed every 4 hours as needed for wheezing/shortness of breath. - atorvastatin (LIPITOR) 40 mg tablet Take 1 tablet by mouth daily at bedtime. - pregabalin (LYRICA) 150 mg capsule Take one pill three times per day Do not start before July 26, 2022. - mirabegron (MYRBETRIQ) 25 mg Tb24 Take 1 tablet by mouth once daily. - thiamine (VITAMIN B1) 100 mg tablet Take 1 tablet by mouth once daily. - tiotropium bromide (SPIRIVA RESPIMAT) 2.5 mcg/actuation inhaler Inhale 2 Puffs as instructed once daily. - ferrous sulfate 325 mg (65 mg iron) tablet Take 1 tablet by mouth twice daily. - budesonide-formoterol (SYMBICORT) 160-4.5 mcg/actuation inhaler Inhale 2 Puffs as instructed twice daily. - L. acidophilus-L. rhamnosus (FLORAJEN WOMEN) 15 billion cell cap Take 1 capsule by mouth once daily. - lisinopril (ZESTRIL, PRINIVIL) 20 mg tablet Take 1 tablet by mouth once daily. - VITAMIN C 500 mg tablet - albuterol (PROVENTIL) 2.5 mg /3 mL (0.083 %) nebulizer solution Use 3 mL via nebulizer every 4 hours as needed for wheezing/shortness of breath. Use over 5-15minutes. - Nebulizers Use as directed. - levothyroxine (SYNTHROID) 25 mcg tablet Take 25 mcg by mouth daily before breakfast. - COMPOUNDED PRESCRIPTION Standard size Rollator Walker #1 Dx Large Blood Pressure Cuff #1 M51.36 DDD (degenerative disc disease), lumbar (primary encounter diagnosis) I10 Essential hypertension - COMPOUNDED PRESCRIPTION ADJUSTABLE CANE DX M51.36 Problem List As Of Date 12/23/2022 Noted Resolved Back pain [M54.9] DDD (degenerative disc disease), lumbar [M51.36] Emphysema of lung (HCC) [J43.9] Tobacco use disorder [F17.200] Hypertension [I10] GERD (gastroesophageal reflux disease) [K21.9] Carpal tunnel syndrome, bilateral [G56.03] 09/23/2015 Obesity [E66.9] Anemia [D64.9] 11/04/2015 Radiculopathy, lumbar region [M54.16] 11/05/2015 Alcohol abuse [F10.10] Chronic midline low back pain with left-sided s*04/21/2016 PE (pulmonary thromboembolism) (HCC) [I26.99] Hyperglycemia [R73.9] 07/14/2016 Stasis edema [I87.309] 07/28/2016 Right lumbar radiculopathy [M54.16] 08/11/2016 Obesity, Class III, BMI >= 40 (morbid obesity) *09/29/2016 Delusional disorder (HCC) [F22] 10/14/2016 Chronic low back pain with sciatica [M54.40, G8*06/07/2017 Abnormal echocardiogram [R93.1] 08/18/2017 Chronic left-sided low back pain with sciatica *11/29/2017 COPD (chronic obstructive pulmonary disease) wi*03/13/2018 Positive urine drug screen [R82.5] 08/16/2018 Encounter for support and coordination of trans*05/15/2020 05/02/2021 Mild protein-calorie malnutrition (HCC) [E44.1] 08/26/2020 11/12/2021 Lumbar spondylosis [M47.816] 02/26/2021 Cervical spondylosis without myelopathy [M47.81*02/26/2021 Encounter for support and coordination of trans*05/02/2021 07/23/2021 Other chest pain [R07.89] 10/21/2021 Stress incontinence [N39.3] 11/12/2021 Chronic active hepatitis C (HCC) [B18.2] 11/23/2021 History of colonic polyps [Z86.010] 11/23/2021 Traumatic closed nondisp torus fracture of dist*01/31/2022 Bacterial vaginosis [N76.0, B96.89] 02/02/2022 Spinal stenosis, lumbar region, without neuroge*02/24/2022 Cognitive impairment, mild, so stated [G31.84] 02/27/2022 Encounter Status:Closed by RIDDLE, WEST on 12/23/22 PROGRESS Observed: 12/16/2022 11:30 AM Status: COMPLETED Source: [facility] REPOSITORY HNO ID: [id number] Author: Urvashi Hughes APRN.APPLIED COMPUTER SCIENCE PROFESSOR Service: ? Author Type: Nurse Practitioner Type: Progress Notes Filed: 12/16/2022 1:17 PM Note Text: [facility] [place] Follow-up Visit Follow-up note December 16, 2022 [...] Words, up to 2 trials: Face, Velvet, Anglican, Yudith, Red (no points) 5/5 first try, [...] 1 error) (06/20) Serial subtraction by 7: 637-31-83-79-72-65 (3 points for correct 4 or 5; 2 points for 2 or 3 correct; 1 point for 1 correct) 716-17-39-79-71-66 (3/) Language: repeat: I only know that Laith [...] (2/2) Delayed recall: recall words: face, velvet, yazdanism, yudith, red (0-5) (4/5) Orientation: date(1), month(1), year(1), day(1), place(1), city(1) max 6 points (/) Level of education: add 1 if did [...] care 05/15/2020 HOSPITAL/ER FOLLOW UP Which facility: [facility] Dates of visit: 05/10-05/13/2020 Preadmission evaluation: [...] of admission 05/01/2021 Date of discharge: Facility: [facility] 05/01/2021 presented to the emergency room with acute alcohol intoxication, initial alcohol level 7-8. Acknowledges over the last 5 months drinking 15 packs a day at 8% alcohol (marcin samaniego). Vital signs 96.6 F-78-18-111/73-98%. Appearance was no acute distress. WBC 7.9-Hgb 13.8-HCT 39 Encounter for support and coordination of transition of care 05/05/2022 05/05/2022 patient called squad, transported to [facility] with lightheadedness and multiple syncopal episodes one of them resulting in injury to her right foot. GERD (gastroesophageal reflux disease) Hyperglycemia Hypertension Lung abscess ([facility]) saw Néstor Li and Dr. Zarate. Major depression Mild protein-calorie malnutrition (HCC) 08/26/2020 Obesity PE (pulmonary thromboembolism) ([facility]) PTSD (post-traumatic stress disorder) Snoring Tobacco use [...] autograft, fell in firepit TONSILLECTOMY AND ADENOIDECTOMY <AGE 10 1979 Current Outpatient Medications [...] on ambulation. Labs/studies: Component Latest Ref Rng AND Units 03/09/2022 05/07/2022 WBC 3.70 - 11.00 [...] Abs Lymph 1.00 - 4.00 k/uL 1.75 [place]% % 9.1 Abs [place] <0.87 k/uL 0.67 Eosin% % 4.1 Abs [...] - 18 mmol/L 8 (L) eGFR >=60 mL/min/1.73mA? 109 Iron 41 - 186 ug/dL 89 [...] abuse, in remission F19.10 Polysubstance abuse ([facility]) Z79.899 Polypharmacy R26.89 Balance problem R29.6 Falls [...] which included preparing to see the patient, [id number] patient care, completing clinical documentation, obtaining and/or reviewing separately obtained history, performing a medically appropriate examination, counseling and educating the patient/family/caregiver, and ordering medications, tests, or procedures. CNOV Observed: 12/16/2022 11:30 AM Status: COMPLETED Source: [facility] REPOSITORY Office Visit (KAITLYNN) MARILUZ GARCIA ([id number]) 1970 F Date Time Provider Department 12/16/22 11:30 AM URVASHI HUGHES During your visit today, we recorded the following information about you: Pulse Respiration Blood pressure Weight 106/minute 20/minute 168/100 64 kg Urvashi Hughes APRN.CNP 12/16/2022 1:17 PM Signed [facility] [place] Follow-up Visit Follow-up note December 16, 2022 [...] Words, up to 2 trials: Face, Velvet, Anglican, Yudith, Red (no points) 5/5 first try, [...] 1 error) (06/20) Serial subtraction by 7: 708-35-88-79-72-65 (3 points for correct 4 or 5; 2 points for 2 or 3 correct; 1 point for 1 correct) 300-83-22-79-71-66 (3/) Language: repeat: I only know that Laith [...] (2/2) Delayed recall: recall words: face, velvet, yazdanism, yudith, red (0-5) (4/5) Orientation: date(1), month(1), [...] care 05/15/2020 HOSPITAL/ER FOLLOW UP Which facility: [facility] Dates of visit: 05/10-05/13/2020 Preadmission evaluation: [...] of admission 05/01/2021 Date of discharge: Facility: [facility] 05/01/2021 presented to the emergency room with acute alcohol intoxication, initial alcohol level 7-8. Acknowledges over the last 5 months drinking 15 packs a day at 8% alcohol (natty daddy). Vital signs 96.6 F-78-18-111/73-98%. Appearance was no acute distress. WBC 7.9-Hgb 13.8-HCT 39 Encounter for support and coordination of transition of care 05/05/2022 05/05/2022 patient called squad, transported to [facility] with lightheadedness and multiple syncopal [...] autograft, fell in firepit TONSILLECTOMY AND ADENOIDECTOMY <AGE 10 1979 Current Outpatient Medications [...] on ambulation. Labs/studies: Component Latest Ref Rng AND Units 03/09/2022 05/07/2022 WBC 3.70 - 11.00 [...] Abs Lymph 1.00 - 4.00 k/uL 1.75 [place]% % 9.1 Abs [place] <0.87 k/uL 0.67 Eosin% % 4.1 Abs [...] - 18 mmol/L 8 (L) eGFR >=60 mL/min/1.73mA? 109 Iron 41 - 186 ug/dL 89 [...] abuse, in remission F19.10 Polysubstance abuse ([facility]) Z79.899 Polypharmacy R26.89 Balance problem R29.6 Falls [...] which included preparing to see the patient, [id number] patient care, completing clinical documentation, obtaining and/or reviewing separately obtained history, performing a medically appropriate examination, counseling and educating the patient/family/caregiver, and ordering medications, tests, or procedures. Allergies As of Date: 12/16/2022 Noted Allergy Reaction FENTANYL 08/22/2015 14 - Other: See Comments Comments: PATCH ONLY. Respiratory distress due to rapid absorption. CHANTIX (VARENICLINE) 09/30/2016 5 - Intolerance Comments: hallucinations Date Reviewed: 12/16/2022 Reviewed by: Urvashi Hughes APRN.APPLIED COMPUTER SCIENCE PROFESSOR - Fully Assessed Reason for Visit: Follow Up [171] Cmt: 3 month, cognitive decline Primary Visit Diagnosis:Cognitive impairment [R41.89] Other Visit Diagnoses:Alcohol abuse, in remission [F10.11] Polysubstance abuse (HCC) [F19.10] Polypharmacy [Z79.899] Transient cerebral ischemia, unspecified type [G45.9] Balance problem [R26.89] Falls frequently [R29.6] Depression, unspecified depression type [F32.A] Hallucinations [R44.3] Order(s):CONSULT TO PSYCHIATRY [9035] Order #: [id number]: 1 FUTURE NEUROPSYCHOLOGICAL TESTING CONSULT [[id number]] Order #: [id number]: 1 EPIL EEG ROUTINE [[id number]] Order #: [id number]: 1 FUTURE MRI BRAIN WO IVCON [[id number]] Order #: [id number] FUTURE Prescriptions as of 12/16/2022 - Blood Pressure Monitor 1 Each once daily. ICD 10 code I10 - ibuprofen (MOTRIN) 800 mg tablet Take 1 tablet by mouth every 8 hours as needed for pain. Take with food. - Blood Pressure Test Kit-Medium kit 1 Each once daily. - metoprolol succinate ER (TOPROL XL) 50 mg 24 hr tablet Take 1 tablet by mouth once daily. - oxybutynin ER (DITROPAN XL) 10 mg 24 hr tablet Take 1 tablet by mouth once daily. - cyanocobalamin (VITAMIN B-12) 1,000 mcg tab Take 1 tablet by mouth once daily. - OLANZapine (ZYPREXA) 5 mg tablet Take 1 tablet by mouth once daily. - buPROPion XL (WELLBUTRIN XL) 150 mg 24 hr tablet Take 1 tablet by mouth once daily. - traZODone (DESYREL) 150 mg tablet Take 1 tablet by mouth at bedtime as needed. - WALKER ROLLATOR SEAT WITH 6 WHEELS - RED For daily use. M54.40, G89.29 Chronic left-sided low back pain with sciatica, sciatica laterality unspecified (primary encounter diagnosis) M51.36 DDD (degenerative disc disease), lumbar M47.816 Lumbar spondylosis R26.81 Gait instability - Cholecalciferol, Vitamin D3, (VITAMIN D) 25 mcg (1,000 unit) cap Take 1 capsule by mouth once daily. - omeprazole (PRILOSEC) 20 mg capsule TAKE 1 CAPSULE BY MOUTH DAILY - albuterol HFA (VENTOLIN HFA) 90 mcg/actuation inhaler Inhale 2 Puffs as instructed every 4 hours as needed for wheezing/shortness of breath. - atorvastatin (LIPITOR) 40 mg tablet Take 1 tablet by mouth daily at bedtime. - pregabalin (LYRICA) 150 mg capsule Take one pill three times per day Do not start before July 26, 2022. - mirabegron (MYRBETRIQ) 25 mg Tb24 Take 1 tablet by mouth once daily. - thiamine (VITAMIN B1) 100 mg tablet Take 1 tablet by mouth once daily. - tiotropium bromide (SPIRIVA RESPIMAT) 2.5 mcg/actuation inhaler Inhale 2 Puffs as instructed once daily. - ferrous sulfate 325 mg (65 mg iron) tablet Take 1 tablet by mouth twice daily. - budesonide-formoterol (SYMBICORT) 160-4.5 mcg/actuation inhaler Inhale 2 Puffs as instructed twice daily. - L. acidophilus-L. rhamnosus (FLORAJEN WOMEN) 15 billion cell cap Take 1 capsule by mouth once daily. - lisinopril (ZESTRIL, PRINIVIL) 20 mg tablet Take 1 tablet by mouth once daily. - VITAMIN C 500 mg tablet - albuterol (PROVENTIL) 2.5 mg /3 mL (0.083 %) nebulizer solution Use 3 mL via nebulizer every 4 hours as needed for wheezing/shortness of breath. Use over 5-15minutes. - Nebulizers Use as directed. - levothyroxine (SYNTHROID) 25 mcg tablet Take 25 mcg by mouth daily before breakfast. - COMPOUNDED PRESCRIPTION Standard size Rollator Walker #1 Dx Large Blood Pressure Cuff #1 M51.36 DDD (degenerative disc disease), lumbar (primary encounter diagnosis) I10 Essential hypertension - COMPOUNDED PRESCRIPTION ADJUSTABLE CANE DX M51.36 Problem List As Of Date 12/16/2022 Noted Resolved Back pain [M54.9] DDD (degenerative disc disease), lumbar [M51.36] Emphysema of lung (HCC) [J43.9] Tobacco use disorder [F17.200] Hypertension [I10] GERD (gastroesophageal reflux disease) [K21.9] Carpal tunnel syndrome, bilateral [G56.03] 09/23/2015 Obesity [E66.9] Anemia [D64.9] 11/04/2015 Radiculopathy, lumbar region [M54.16] 11/05/2015 Alcohol abuse [F10.10] Chronic midline low back pain with left-sided s*04/21/2016 PE (pulmonary thromboembolism) (HCC) [I26.99] Hyperglycemia [R73.9] 07/14/2016 Stasis edema [I87.309] 07/28/2016 Right lumbar radiculopathy [M54.16] 08/11/2016 Obesity, Class III, BMI >= 40 (morbid obesity) *09/29/2016 Delusional disorder (HCC) [F22] 10/14/2016 Chronic low back pain with sciatica [M54.40, G8*06/07/2017 Abnormal echocardiogram [R93.1] 08/18/2017 Chronic left-sided low back pain with sciatica *11/29/2017 COPD (chronic obstructive pulmonary disease) wi*03/13/2018 Positive urine drug screen [R82.5] 08/16/2018 Encounter for support and coordination of trans*05/15/2020 05/02/2021 Mild protein-calorie malnutrition (HCC) [E44.1] 08/26/2020 11/12/2021 Lumbar spondylosis [M47.816] 02/26/2021 Cervical spondylosis without myelopathy [M47.81*02/26/2021 Encounter for support and coordination of trans*05/02/2021 07/23/2021 Other chest pain [R07.89] 10/21/2021 Stress incontinence [N39.3] 11/12/2021 Chronic active hepatitis C (HCC) [B18.2] 11/23/2021 History of colonic polyps [Z86.010] 11/23/2021 Traumatic closed nondisp torus fracture of dist*01/31/2022 Bacterial vaginosis [N76.0, B96.89] 02/02/2022 Spinal stenosis, lumbar region, without neuroge*02/24/2022 Cognitive impairment, mild, so stated [G31.84] 02/27/2022 Disposition: Return for after testing complete. Follow-up and Disposition History for Encounter Date Provider Department Center 12/16/2022 [id number], [facility] Encounter Status:Closed by URVASHI HUGHES on 12/16/22 CNPN Observed: 12/16/2022 12:00 AM Status: COMPLETED Source: [facility] REPOSITORY Telephone (SPAGWO) MARILUZ GARCIA ([id number]) 1970 F Date Time Provider Department 12/16/22 HBARTI WHEATLEY During your visit today, we recorded the following information about you: Eugenie Walker 12/16/2022 2:30 PM Signed No Show Documentation Mariluz Garcia no showed for an appointment on 12/16/2022 with Bharti Wheatley APRN.APPLIED COMPUTER SCIENCE PROFESSOR at 2pm. She was scheduled for an office visit. I called the patient regarding her missed appointment. . Resources discussed/offered to patient: NA No show determined to be fault of patient: N/A This is the patients first no show in the last 12 months. Patient was rescheduled for NA. Letter mailed : Yes Is this the Third or Fourth No Show ? No Eugenie Walker December 16, 2022 2:28 PM Allergies As of Date: 12/16/2022 Noted Allergy Reaction FENTANYL 08/22/2015 14 - Other: See Comments Comments: PATCH ONLY. Respiratory distress due to rapid absorption. CHANTIX (VARENICLINE) 09/30/2016 5 - Intolerance Comments: hallucinations Date Reviewed: 12/16/2022 Reviewed by: Urvashi Hughes APRN.APPLIED COMPUTER SCIENCE PROFESSOR - Fully Assessed Reason for Visit: No Show [1558] Prescriptions as of 12/16/2022 - Blood Pressure Monitor 1 Each once daily. ICD 10 code I10 - ibuprofen (MOTRIN) 800 mg tablet Take 1 tablet by mouth every 8 hours as needed for pain. Take with food. - Blood Pressure Test Kit-Medium kit 1 Each once daily. - metoprolol succinate ER (TOPROL XL) 50 mg 24 hr tablet Take 1 tablet by mouth once daily. - oxybutynin ER (DITROPAN XL) 10 mg 24 hr tablet Take 1 tablet by mouth once daily. - cyanocobalamin (VITAMIN B-12) 1,000 mcg tab Take 1 tablet by mouth once daily. - OLANZapine (ZYPREXA) 5 mg tablet Take 1 tablet by mouth once daily. - buPROPion XL (WELLBUTRIN XL) 150 mg 24 hr tablet Take 1 tablet by mouth once daily. - traZODone (DESYREL) 150 mg tablet Take 1 tablet by mouth at bedtime as needed. - WALKER ROLLATOR SEAT WITH 6 WHEELS - RED For daily use. M54.40, G89.29 Chronic left-sided low back pain with sciatica, sciatica laterality unspecified (primary encounter diagnosis) M51.36 DDD (degenerative disc disease), lumbar M47.816 Lumbar spondylosis R26.81 Gait instability - Cholecalciferol, Vitamin D3, (VITAMIN D) 25 mcg (1,000 unit) cap Take 1 capsule by mouth once daily. - omeprazole (PRILOSEC) 20 mg capsule TAKE 1 CAPSULE BY MOUTH DAILY - albuterol HFA (VENTOLIN HFA) 90 mcg/actuation inhaler Inhale 2 Puffs as instructed every 4 hours as needed for wheezing/shortness of breath. - atorvastatin (LIPITOR) 40 mg tablet Take 1 tablet by mouth daily at bedtime. - pregabalin (LYRICA) 150 mg capsule Take one pill three times per day Do not start before July 26, 2022. - mirabegron (MYRBETRIQ) 25 mg Tb24 Take 1 tablet by mouth once daily. - thiamine (VITAMIN B1) 100 mg tablet Take 1 tablet by mouth once daily. - tiotropium bromide (SPIRIVA RESPIMAT) 2.5 mcg/actuation inhaler Inhale 2 Puffs as instructed once daily. - ferrous sulfate 325 mg (65 mg iron) tablet Take 1 tablet by mouth twice daily. - budesonide-formoterol (SYMBICORT) 160-4.5 mcg/actuation inhaler Inhale 2 Puffs as instructed twice daily. - L. acidophilus-L. rhamnosus (FLORAJEN WOMEN) 15 billion cell cap Take 1 capsule by mouth once daily. - lisinopril (ZESTRIL, PRINIVIL) 20 mg tablet Take 1 tablet by mouth once daily. - VITAMIN C 500 mg tablet - albuterol (PROVENTIL) 2.5 mg /3 mL (0.083 %) nebulizer solution Use 3 mL via nebulizer every 4 hours as needed for wheezing/shortness of breath. Use over 5-15minutes. - Nebulizers Use as directed. - levothyroxine (SYNTHROID) 25 mcg tablet Take 25 mcg by mouth daily before breakfast. - COMPOUNDED PRESCRIPTION Standard size Rollator Walker #1 Dx Large Blood Pressure Cuff #1 M51.36 DDD (degenerative disc disease), lumbar (primary encounter diagnosis) I10 Essential hypertension - COMPOUNDED PRESCRIPTION ADJUSTABLE CANE DX M51.36 Problem List As Of Date 12/16/2022 Noted Resolved Back pain [M54.9] DDD (degenerative disc disease), lumbar [M51.36] Emphysema of lung (HCC) [J43.9] Tobacco use disorder [F17.200] Hypertension [I10] GERD (gastroesophageal reflux disease) [K21.9] Carpal tunnel syndrome, bilateral [G56.03] 09/23/2015 Obesity [E66.9] Anemia [D64.9] 11/04/2015 Radiculopathy, lumbar region [M54.16] 11/05/2015 Alcohol abuse [F10.10] Chronic midline low back pain with left-sided s*04/21/2016 PE (pulmonary thromboembolism) (HCC) [I26.99] Hyperglycemia [R73.9] 07/14/2016 Stasis edema [I87.309] 07/28/2016 Right lumbar radiculopathy [M54.16] 08/11/2016 Obesity, Class III, BMI >= 40 (morbid obesity) *09/29/2016 Delusional disorder (HCC) [F22] 10/14/2016 Chronic low back pain with sciatica [M54.40, G8*06/07/2017 Abnormal echocardiogram [R93.1] 08/18/2017 Chronic left-sided low back pain with sciatica *11/29/2017 COPD (chronic obstructive pulmonary disease) wi*03/13/2018 Positive urine drug screen [R82.5] 08/16/2018 Encounter for support and coordination of trans*05/15/2020 05/02/2021 Mild protein-calorie malnutrition (HCC) [E44.1] 08/26/2020 11/12/2021 Lumbar spondylosis [M47.816] 02/26/2021 Cervical spondylosis without myelopathy [M47.81*02/26/2021 Encounter for support and coordination of trans*05/02/2021 07/23/2021 Other chest pain [R07.89] 10/21/2021 Stress incontinence [N39.3] 11/12/2021 Chronic active hepatitis C (HCC) [B18.2] 11/23/2021 History of colonic polyps [Z86.010] 11/23/2021 Traumatic closed nondisp torus fracture of dist*01/31/2022 Bacterial vaginosis [N76.0, B96.89] 02/02/2022 Spinal stenosis, lumbar region, without neuroge*02/24/2022 Cognitive impairment, mild, so stated [G31.84] 02/27/2022 Encounter Status:Closed by EUGENIE WALKER on 12/16/22 CNCO Observed: 12/16/2022 12:00 AM Status: COMPLETED Source: [facility] REPOSITORY Letter Text CNPN Observed: 12/10/2022 12:00 AM Status: COMPLETED Source: [facility] REPOSITORY Telephone (FAMPWS) MARILUZ GARCIA ([id number]) 1970 F Date Time Provider Department 12/10/22 Jaimee PALOMARESWS During your visit today, we recorded the following information about you: Jaimee Foster RN 12/10/2022 11:42 AM Signed Zeina STINSON reports she received a faxed order for BP cuff. States she needs order to state BP monitor, and she needs it to have an ICD 10 code on it, and she needs it to be e-scripted to them. Pended. Jaimee Palomares PA-C 12/10/2022 12:52 PM Signed The following approved medication requests have been transmitted electronically. Requested Prescriptions Signed Prescriptions Disp Refills Blood Pressure Monitor 1 Kit 0 Si Each once daily. ICD 10 code I10 Authorizing Provider: Jaimee PALOMARES PA-C Allergies As of Date: 12/10/2022 Noted Allergy Reaction FENTANYL 08/22/2015 14 - Other: See Comments Comments: PATCH ONLY. Respiratory distress due to rapid absorption. CHANTIX (VARENICLINE) 09/30/2016 5 - Intolerance Comments: hallucinations Date Reviewed: 10/20/2022 Reviewed by: Deric Dixon Cma - Fully Assessed Reason for Visit: BP monitor request [Other] Primary Visit Diagnosis:Primary hypertension [I10] Other Visit Diagnosis:Unspecified essential hypertension [I10] Order(s):Blood Pressure Monitor1 Each once daily. ICD 10 code Z29Mmbe: 1 KitRfl: 0 Prescriptions as of 12/10/2022 - Blood Pressure Monitor 1 Each once daily. ICD 10 code I10 - ibuprofen (MOTRIN) 800 mg tablet Take 1 tablet by mouth every 8 hours as needed for pain. Take with food. - Blood Pressure Test Kit-Medium kit 1 Each once daily. - metoprolol succinate ER (TOPROL XL) 50 mg 24 hr tablet Take 1 tablet by mouth once daily. - oxybutynin ER (DITROPAN XL) 10 mg 24 hr tablet Take 1 tablet by mouth once daily. - cyanocobalamin (VITAMIN B-12) 1,000 mcg tab Take 1 tablet by mouth once daily. - OLANZapine (ZYPREXA) 5 mg tablet Take 1 tablet by mouth once daily. - buPROPion XL (WELLBUTRIN XL) 150 mg 24 hr tablet Take 1 tablet by mouth once daily. - traZODone (DESYREL) 150 mg tablet Take 1 tablet by mouth at bedtime as needed. - WALKER ROLLATOR SEAT WITH 6 WHEELS - RED For daily use. M54.40, G89.29 Chronic left-sided low back pain with sciatica, sciatica laterality unspecified (primary encounter diagnosis) M51.36 DDD (degenerative disc disease), lumbar M47.816 Lumbar spondylosis R26.81 Gait instability - Cholecalciferol, Vitamin D3, (VITAMIN D) 25 mcg (1,000 unit) cap Take 1 capsule by mouth once daily. - omeprazole (PRILOSEC) 20 mg capsule TAKE 1 CAPSULE BY MOUTH DAILY - albuterol HFA (VENTOLIN HFA) 90 mcg/actuation inhaler Inhale 2 Puffs as instructed every 4 hours as needed for wheezing/shortness of breath. - atorvastatin (LIPITOR) 40 mg tablet Take 1 tablet by mouth daily at bedtime. - pregabalin (LYRICA) 150 mg capsule Take one pill three times per day Do not start before July 26, 2022. - mirabegron (MYRBETRIQ) 25 mg Tb24 Take 1 tablet by mouth once daily. - thiamine (VITAMIN B1) 100 mg tablet Take 1 tablet by mouth once daily. - tiotropium bromide (SPIRIVA RESPIMAT) 2.5 mcg/actuation inhaler Inhale 2 Puffs as instructed once daily. - ferrous sulfate 325 mg (65 mg iron) tablet Take 1 tablet by mouth twice daily. - budesonide-formoterol (SYMBICORT) 160-4.5 mcg/actuation inhaler Inhale 2 Puffs as instructed twice daily. - L. acidophilus-L. rhamnosus (FLORAJEN WOMEN) 15 billion cell cap Take 1 capsule by mouth once daily. - lisinopril (ZESTRIL, PRINIVIL) 20 mg tablet Take 1 tablet by mouth once daily. - VITAMIN C 500 mg tablet - albuterol (PROVENTIL) 2.5 mg /3 mL (0.083 %) nebulizer solution Use 3 mL via nebulizer every 4 hours as needed for wheezing/shortness of breath. Use over 5-15minutes. - Nebulizers Use as directed. - levothyroxine (SYNTHROID) 25 mcg tablet Take 25 mcg by mouth daily before breakfast. - COMPOUNDED PRESCRIPTION Standard size Rollator Walker #1 Dx Large Blood Pressure Cuff #1 M51.36 DDD (degenerative disc disease), lumbar (primary encounter diagnosis) I10 Essential hypertension - COMPOUNDED PRESCRIPTION ADJUSTABLE CANE DX M51.36 Problem List As Of Date 12/10/2022 Noted Resolved Back pain [M54.9] DDD (degenerative disc disease), lumbar [M51.36] Emphysema of lung (HCC) [J43.9] Tobacco use disorder [F17.200] Hypertension [I10] GERD (gastroesophageal reflux disease) [K21.9] Carpal tunnel syndrome, bilateral [G56.03] 09/23/2015 Obesity [E66.9] Anemia [D64.9] 11/04/2015 Radiculopathy, lumbar region [M54.16] 11/05/2015 Alcohol abuse [F10.10] Chronic midline low back pain with left-sided s*04/21/2016 PE (pulmonary thromboembolism) (HCC) [I26.99] Hyperglycemia [R73.9] 07/14/2016 Stasis edema [I87.309] 07/28/2016 Right lumbar radiculopathy [M54.16] 08/11/2016 Obesity, Class III, BMI >= 40 (morbid obesity) *09/29/2016 Delusional disorder (HCC) [F22] 10/14/2016 Chronic low back pain with sciatica [M54.40, G8*06/07/2017 Abnormal echocardiogram [R93.1] 08/18/2017 Chronic left-sided low back pain with sciatica *11/29/2017 COPD (chronic obstructive pulmonary disease) wi*03/13/2018 Positive urine drug screen [R82.5] 08/16/2018 Encounter for support and coordination of trans*05/15/2020 05/02/2021 Mild protein-calorie malnutrition (HCC) [E44.1] 08/26/2020 11/12/2021 Lumbar spondylosis [M47.816] 02/26/2021 Cervical spondylosis without myelopathy [M47.81*02/26/2021 Encounter for support and coordination of trans*05/02/2021 07/23/2021 Other chest pain [R07.89] 10/21/2021 Stress incontinence [N39.3] 11/12/2021 Chronic active hepatitis C (HCC) [B18.2] 11/23/2021 History of colonic polyps [Z86.010] 11/23/2021 Traumatic closed nondisp torus fracture of dist*01/31/2022 Bacterial vaginosis [N76.0, B96.89] 02/02/2022 Spinal stenosis, lumbar region, without neuroge*02/24/2022 Cognitive impairment, mild, so stated [G31.84] 02/27/2022 Prescriptions ordered this encounter Disp Refills Start End BLOOD PRESSURE MONITOR KIT 1 Kit 0 12/10/2022 Route: Misc Si Each once daily. ICD 10 code I10 Encounter Status:Closed by Jaimee PALOMARES on 12/10/22 CNOV Observed: 12/09/2022 3:20 PM Status: COMPLETED Source: [facility] REPOSITORY [facility] MARILUZ GARCIA ([id number]) 1970 F Date Time Provider Department 12/09/22 3:20 PM [facility] During your visit today, we recorded the following information about you: Pulse Respiration Blood pressure Weight 72/minute 18/minute 128/80 71.7 kg Jaimee Palomares PA-C 12/09/2022 7:56 PM Signed 52 year old female with c/o .HTN: [...] care 05/15/2020 HOSPITAL/ER FOLLOW UP Which facility: [facility] Dates of visit: 05/10-05/13/2020 Preadmission evaluation: [...] of admission 05/01/2021 Date of discharge: Facility: [facility] 05/01/2021 presented to the emergency room with acute alcohol intoxication, initial alcohol level 7-8. Acknowledges over the last 5 months drinking 15 packs a day at 8% alcohol (nataidan samaniego). Vital signs 96.6 F-78-18-111/73-98%. Appearance was no acute distress. WBC 7.9-Hgb 13.8-HCT 39 Encounter for support and coordination of transition of care 05/05/2022 05/05/2022 patient called squad, transported to [facility] with lightheadedness and multiple syncopal episodes one of them resulting in injury to her right foot. GERD (gastroesophageal reflux disease) Hyperglycemia Hypertension Lung abscess ([facility]) saw Néstor Li and Dr. Zarate. Major depression Mild protein-calorie malnutrition (HCC) 08/26/2020 Obesity PE (pulmonary thromboembolism) ([facility]) PTSD (post-traumatic stress disorder) Snoring Tobacco use [...] autograft, fell in firepit TONSILLECTOMY AND ADENOIDECTOMY <AGE 10 1979 Social History Tobacco [...] kg (158 lb) SpO2 96% BMI 23.33 kg/m? Weight up 23lbs Pleasant well appearing adult [...] Mediterranean diet - Recommend regular aerobic exercise M Cici Palomares PA-C Referring Provider: SELF [200] Allergies As of Date: 12/09/2022 Noted Allergy Reaction FENTANYL 08/22/2015 14 - Other: See Comments Comments: PATCH ONLY. Respiratory distress due to rapid absorption. CHANTIX (VARENICLINE) 09/30/2016 5 - Intolerance Comments: hallucinations Date Reviewed: 10/20/2022 Reviewed by: Deric Dixon Cma - Fully Assessed Reason for Visit: Follow Up [171] Cmt: 4 week f/u Primary Visit Diagnosis:Hypertension, essential [I10] Order(s):ibuprofen (MOTRIN) 800 mg tabletTake 1 tablet by mouth every 8 hours as needed for pain. Take with food.Disp: 30 tabletRfl: 1 Blood Pressure Test Kit-Medium kit1 Each once daily.Disp: 1 KitRfl: 0 Prescriptions as of 12/09/2022 - ibuprofen (MOTRIN) 800 mg tablet Take 1 tablet by mouth every 8 hours as needed for pain. Take with food. - Blood Pressure Test Kit-Medium kit 1 Each once daily. - metoprolol succinate ER (TOPROL XL) 50 mg 24 hr tablet Take 1 tablet by mouth once daily. - oxybutynin ER (DITROPAN XL) 10 mg 24 hr tablet Take 1 tablet by mouth once daily. - cyanocobalamin (VITAMIN B-12) 1,000 mcg tab Take 1 tablet by mouth once daily. - OLANZapine (ZYPREXA) 5 mg tablet Take 1 tablet by mouth once daily. - buPROPion XL (WELLBUTRIN XL) 150 mg 24 hr tablet Take 1 tablet by mouth once daily. - traZODone (DESYREL) 150 mg tablet Take 1 tablet by mouth at bedtime as needed. - WALKER ROLLATOR SEAT WITH 6 WHEELS - RED For daily use. M54.40, G89.29 Chronic left-sided low back pain with sciatica, sciatica laterality unspecified (primary encounter diagnosis) M51.36 DDD (degenerative disc disease), lumbar M47.816 Lumbar spondylosis R26.81 Gait instability - Cholecalciferol, Vitamin D3, (VITAMIN D) 25 mcg (1,000 unit) cap Take 1 capsule by mouth once daily. - omeprazole (PRILOSEC) 20 mg capsule TAKE 1 CAPSULE BY MOUTH DAILY - albuterol HFA (VENTOLIN HFA) 90 mcg/actuation inhaler Inhale 2 Puffs as instructed every 4 hours as needed for wheezing/shortness of breath. - atorvastatin (LIPITOR) 40 mg tablet Take 1 tablet by mouth daily at bedtime. - pregabalin (LYRICA) 150 mg capsule Take one pill three times per day Do not start before July 26, 2022. - mirabegron (MYRBETRIQ) 25 mg Tb24 Take 1 tablet by mouth once daily. - thiamine (VITAMIN B1) 100 mg tablet Take 1 tablet by mouth once daily. - tiotropium bromide (SPIRIVA RESPIMAT) 2.5 mcg/actuation inhaler Inhale 2 Puffs as instructed once daily. - ferrous sulfate 325 mg (65 mg iron) tablet Take 1 tablet by mouth twice daily. - budesonide-formoterol (SYMBICORT) 160-4.5 mcg/actuation inhaler Inhale 2 Puffs as instructed twice daily. - L. acidophilus-L. rhamnosus (FLORAJEN WOMEN) 15 billion cell cap Take 1 capsule by mouth once daily. - lisinopril (ZESTRIL, PRINIVIL) 20 mg tablet Take 1 tablet by mouth once daily. - VITAMIN C 500 mg tablet - albuterol (PROVENTIL) 2.5 mg /3 mL (0.083 %) nebulizer solution Use 3 mL via nebulizer every 4 hours as needed for wheezing/shortness of breath. Use over 5-15minutes. - Nebulizers Use as directed. - levothyroxine (SYNTHROID) 25 mcg tablet Take 25 mcg by mouth daily before breakfast. - COMPOUNDED PRESCRIPTION Standard size Rollator Walker #1 Dx Large Blood Pressure Cuff #1 M51.36 DDD (degenerative disc disease), lumbar (primary encounter diagnosis) I10 Essential hypertension - COMPOUNDED PRESCRIPTION ADJUSTABLE CANE DX M51.36 Problem List As Of Date 12/09/2022 Noted Resolved Back pain [M54.9] DDD (degenerative disc disease), lumbar [M51.36] Emphysema of lung (HCC) [J43.9] Tobacco use disorder [F17.200] Hypertension [I10] GERD (gastroesophageal reflux disease) [K21.9] Carpal tunnel syndrome, bilateral [G56.03] 09/23/2015 Obesity [E66.9] Anemia [D64.9] 11/04/2015 Radiculopathy, lumbar region [M54.16] 11/05/2015 Alcohol abuse [F10.10] Chronic midline low back pain with left-sided s*04/21/2016 PE (pulmonary thromboembolism) (HCC) [I26.99] Hyperglycemia [R73.9] 07/14/2016 Stasis edema [I87.309] 07/28/2016 Right lumbar radiculopathy [M54.16] 08/11/2016 Obesity, Class III, BMI >= 40 (morbid obesity) *09/29/2016 Delusional disorder (HCC) [F22] 10/14/2016 Chronic low back pain with sciatica [M54.40, G8*06/07/2017 Abnormal echocardiogram [R93.1] 08/18/2017 Chronic left-sided low back pain with sciatica *11/29/2017 COPD (chronic obstructive pulmonary disease) wi*03/13/2018 Positive urine drug screen [R82.5] 08/16/2018 Encounter for support and coordination of trans*05/15/2020 05/02/2021 Mild protein-calorie malnutrition (HCC) [E44.1] 08/26/2020 11/12/2021 Lumbar spondylosis [M47.816] 02/26/2021 Cervical spondylosis without myelopathy [M47.81*02/26/2021 Encounter for support and coordination of trans*05/02/2021 07/23/2021 Other chest pain [R07.89] 10/21/2021 Stress incontinence [N39.3] 11/12/2021 Chronic active hepatitis C (HCC) [B18.2] 11/23/2021 History of colonic polyps [Z86.010] 11/23/2021 Traumatic closed nondisp torus fracture of dist*01/31/2022 Bacterial vaginosis [N76.0, B96.89] 02/02/2022 Spinal stenosis, lumbar region, without neuroge*02/24/2022 Cognitive impairment, mild, so stated [G31.84] 02/27/2022 Prescriptions ordered this encounter Disp Refills Start End IBUPROFEN 800 MG TABLET 30 t* 1 12/09/2022 Route: ORAL Sig: Take 1 tablet by mouth every 8 hours as needed for pain. Take with food. BLOOD PRESSURE TEST KIT-MEDIUM CUFF 1 Kit 0 12/09/2022 Route: Misc Si Each once daily. Medications Discontinued During This Encounter Prescriptions - ibuprofen (MOTRIN) 800 mg tablet (Discontinued) Take 1 tablet by mouth every 8 hours as needed for pain. Take with food. Disposition: Return in about 6 months (around 06/10/2023). Follow-up and Disposition History for Encounter Date Provider Department Center 12/09/2022 [id number] PALOMARES [facility] Encounter Status:Closed by Jaimee PALOMARES on 12/09/22 PROGRESS Observed: 12/09/2022 3:20 PM Status: COMPLETED Source: [facility] REPOSITORY HNO ID: [id number] Author: Jaimee Palomares PA-C Service: ? Author Type: Physician Living Supervisor Type: Progress Notes Filed: 12/09/2022 7:56 PM [...] care 05/15/2020 HOSPITAL/ER FOLLOW UP Which facility: [facility] Dates of visit: 05/10-05/13/2020 Preadmission evaluation: [...] of admission 05/01/2021 Date of discharge: Facility: [facility] 05/01/2021 presented to the emergency room with acute alcohol intoxication, initial alcohol level 7-8. Acknowledges over the last 5 months drinking 15 packs a day at 8% alcohol (marcin samaniego). Vital signs 96.6 F-78-18-111/73-98%. Appearance was no acute distress. WBC 7.9-Hgb 13.8-HCT 39 Encounter for support and coordination of transition of care 05/05/2022 05/05/2022 patient called squad, transported to [facility] with lightheadedness and multiple syncopal episodes one of them resulting in injury to her right foot. GERD (gastroesophageal reflux disease) Hyperglycemia Hypertension Lung abscess (HCC) saw Néstor Li and Dr. Zarate. Major depression Mild protein-calorie malnutrition (HCC) 08/26/2020 Obesity PE (pulmonary thromboembolism) ([facility]) PTSD (post-traumatic stress disorder) Snoring Tobacco use [...] autograft, fell in firepit TONSILLECTOMY AND ADENOIDECTOMY <AGE 10 1979 Social History Tobacco [...] Pain With Left-Sided Sciatica Pe (Pulmonary Thromboembolism) ([facility]) Hyperglycemia Stasis Edema Right Lumbar Radiculopathy Obesity, Class III, BMI >= 40 (morbid obesity) E66.01 Delusional Disorder ([facility]) Chronic Low Back Pain With Sciatica Abnormal Echocardiogram Chronic Left-Sided Low Back Pain With Sciatica Copd (Chronic Obstructive Pulmonary Disease) With Chronic Bronchitis ([facility]) Positive Urine Drug Screen Lumbar Spondylosis Cervical Spondylosis Without Myelopathy Other Chest Pain Stress Incontinence Chronic Active Hepatitis C ([facility]) History of Colonic Polyps Traumatic Closed Nondisp [...] kg (158 lb) SpO2 96% BMI 23.33 kg/m? Weight up 23lbs Pleasant well appearing adult [...] Mediterranean diet - Recommend regular aerobic exercise ALEIDA Gibson Observed: 11/10/2022 12:00 AM Status: COMPLETED Source: [facility] REPOSITORY Telephone ([facility]) MARILUZ GARCIA ([id number]) 1970 F Date Time Provider Department 11/10/22 DOROTHY TALBOT During your visit today, we recorded the following information about you: Monalisa Ordoñez 11/10/2022 8:53 AM Signed Spoke with patient: Patient called in asking to be scheduled with Dorothy for Incont. And med refill We were disconnected--called back patient and left message to call us back Thank you Monalisa Dane More 11/10/2022 9:12 AM Signed PT Called, is Scheduled with Alison. 11/16. Dane Clary Allergies As of Date: 11/10/2022 Noted Allergy Reaction FENTANYL 08/22/2015 14 - Other: See Comments Comments: PATCH ONLY. Respiratory distress due to rapid absorption. CHANTIX (VARENICLINE) 09/30/2016 5 - Intolerance Comments: hallucinations Date Reviewed: 10/20/2022 Reviewed by: Deric Dixon Cma - Fully Assessed Reason for Visit: Appointment [186] Prescriptions as of 11/10/2022 - oxybutynin ER (DITROPAN XL) 10 mg 24 hr tablet Take 1 tablet by mouth once daily. - metoprolol succinate ER (TOPROL XL) 50 mg 24 hr tablet Take 1 tablet by mouth once daily. - ibuprofen (MOTRIN) 800 mg tablet Take 1 tablet by mouth every 8 hours as needed for pain. Take with food. - cyanocobalamin (VITAMIN B-12) 1,000 mcg tab Take 1 tablet by mouth once daily. - OLANZapine (ZYPREXA) 5 mg tablet Take 1 tablet by mouth once daily. - buPROPion XL (WELLBUTRIN XL) 150 mg 24 hr tablet Take 1 tablet by mouth once daily. - traZODone (DESYREL) 150 mg tablet Take 1 tablet by mouth at bedtime as needed. - WALKER ROLLATOR SEAT WITH 6 WHEELS - RED For daily use. M54.40, G89.29 Chronic left-sided low back pain with sciatica, sciatica laterality unspecified (primary encounter diagnosis) M51.36 DDD (degenerative disc disease), lumbar M47.816 Lumbar spondylosis R26.81 Gait instability - Cholecalciferol, Vitamin D3, (VITAMIN D) 25 mcg (1,000 unit) cap Take 1 capsule by mouth once daily. - omeprazole (PRILOSEC) 20 mg capsule TAKE 1 CAPSULE BY MOUTH DAILY - albuterol HFA (VENTOLIN HFA) 90 mcg/actuation inhaler Inhale 2 Puffs as instructed every 4 hours as needed for wheezing/shortness of breath. - atorvastatin (LIPITOR) 40 mg tablet Take 1 tablet by mouth daily at bedtime. - pregabalin (LYRICA) 150 mg capsule Take one pill three times per day Do not start before July 26, 2022. - mirabegron (MYRBETRIQ) 25 mg Tb24 Take 1 tablet by mouth once daily. - thiamine (VITAMIN B1) 100 mg tablet Take 1 tablet by mouth once daily. - tiotropium bromide (SPIRIVA RESPIMAT) 2.5 mcg/actuation inhaler Inhale 2 Puffs as instructed once daily. - ferrous sulfate 325 mg (65 mg iron) tablet Take 1 tablet by mouth twice daily. - budesonide-formoterol (SYMBICORT) 160-4.5 mcg/actuation inhaler Inhale 2 Puffs as instructed twice daily. - L. acidophilus-L. rhamnosus (FLORAJEN WOMEN) 15 billion cell cap Take 1 capsule by mouth once daily. - lisinopril (ZESTRIL, PRINIVIL) 20 mg tablet Take 1 tablet by mouth once daily. - VITAMIN C 500 mg tablet - albuterol (PROVENTIL) 2.5 mg /3 mL (0.083 %) nebulizer solution Use 3 mL via nebulizer every 4 hours as needed for wheezing/shortness of breath. Use over 5-15minutes. - Nebulizers Use as directed. - levothyroxine (SYNTHROID) 25 mcg tablet Take 25 mcg by mouth daily before breakfast. - COMPOUNDED PRESCRIPTION Standard size Rollator Walker #1 Dx Large Blood Pressure Cuff #1 M51.36 DDD (degenerative disc disease), lumbar (primary encounter diagnosis) I10 Essential hypertension - COMPOUNDED PRESCRIPTION ADJUSTABLE CANE DX M51.36 Problem List As Of Date 11/10/2022 Noted Resolved Back pain [M54.9] DDD (degenerative disc disease), lumbar [M51.36] Emphysema of lung (HCC) [J43.9] Tobacco use disorder [F17.200] Hypertension [I10] GERD (gastroesophageal reflux disease) [K21.9] Carpal tunnel syndrome, bilateral [G56.03] 09/23/2015 Obesity [E66.9] Anemia [D64.9] 11/04/2015 Radiculopathy, lumbar region [M54.16] 11/05/2015 Alcohol abuse [F10.10] Chronic midline low back pain with left-sided s*04/21/2016 PE (pulmonary thromboembolism) (HCC) [I26.99] Hyperglycemia [R73.9] 07/14/2016 Stasis edema [I87.309] 07/28/2016 Right lumbar radiculopathy [M54.16] 08/11/2016 Obesity, Class III, BMI >= 40 (morbid obesity) *09/29/2016 Delusional disorder (HCC) [F22] 10/14/2016 Chronic low back pain with sciatica [M54.40, G8*06/07/2017 Abnormal echocardiogram [R93.1] 08/18/2017 Chronic left-sided low back pain with sciatica *11/29/2017 COPD (chronic obstructive pulmonary disease) wi*03/13/2018 Positive urine drug screen [R82.5] 08/16/2018 Encounter for support and coordination of trans*05/15/2020 05/02/2021 Mild protein-calorie malnutrition (HCC) [E44.1] 08/26/2020 11/12/2021 Lumbar spondylosis [M47.816] 02/26/2021 Cervical spondylosis without myelopathy [M47.81*02/26/2021 Encounter for support and coordination of trans*05/02/2021 07/23/2021 Other chest pain [R07.89] 10/21/2021 Stress incontinence [N39.3] 11/12/2021 Chronic active hepatitis C (HCC) [B18.2] 11/23/2021 History of colonic polyps [Z86.010] 11/23/2021 Traumatic closed nondisp torus fracture of dist*01/31/2022 Bacterial vaginosis [N76.0, B96.89] 02/02/2022 Spinal stenosis, lumbar region, without neuroge*02/24/2022 Cognitive impairment, mild, so stated [G31.84] 02/27/2022 Encounter Status:Closed by MONALISA ORDOÑEZ on 11/10/22 PROGRESS Observed: 11/08/2022 1:20 PM Status: COMPLETED Source: [facility] REPOSITORY HNO ID: [id number] Author: Jaimee Palomares PA-C Service: ? Author Type: Physician Living Supervisor Type: Progress Notes Filed: 11/08/2022 8:05 PM [...] having emergency surgery for hernia sent to [facility]. Still having some flashes shoot [...] care 05/15/2020 HOSPITAL/ER FOLLOW UP Which facility: [facility] Dates of visit: 05/10-05/13/2020 Preadmission evaluation: [...] of admission 05/01/2021 Date of discharge: Facility: [facility] 05/01/2021 presented to the emergency room with acute alcohol intoxication, initial alcohol level 7-8. Acknowledges over the last 5 months drinking 15 packs a day at 8% alcohol (marcin samaniego). Vital signs 96.6 F-78-18-111/73-98%. Appearance was no acute distress. WBC 7.9-Hgb 13.8-HCT 39 Encounter for support and coordination of transition of care 05/05/2022 05/05/2022 patient called squad, transported to [facility] with lightheadedness and multiple syncopal episodes one of them resulting in injury to her right foot. GERD (gastroesophageal reflux disease) Hyperglycemia Hypertension Lung abscess (HCC) saw Néstor iL and Dr. Zarate. Major [...] autograft, fell in firepit TONSILLECTOMY AND ADENOIDECTOMY <AGE 10 1979 Social History Tobacco [...] Pain With Left-Sided Sciatica Pe (Pulmonary Thromboembolism) ([facility]) Hyperglycemia Stasis Edema Right Lumbar Radiculopathy Obesity, Class III, BMI >= 40 (morbid obesity) E66.01 Delusional Disorder ([facility]) Chronic Low Back Pain With Sciatica Abnormal Echocardiogram Chronic Left-Sided Low Back Pain With Sciatica Copd (Chronic Obstructive Pulmonary Disease) With Chronic Bronchitis ([facility]) Positive Urine Drug Screen Lumbar Spondylosis Cervical Spondylosis Without Myelopathy Other Chest Pain Stress Incontinence Chronic Active Hepatitis C ([facility]) History of Colonic Polyps Traumatic Closed Nondisp Torus Fracture of Distal Radial Metaphysis, Right, With Routine Healing, Subsequent Encounter Bacterial Vaginosis Spinal Stenosis, Lumbar Region, Without Neurogenic Claudication Cognitive Impairment, Mild, So Stated Current Outpatient Medications Medication Sig Dispense Refill metoprolol succinate ER (TOPROL XL) 50 mg 24 hr tablet Take 1 tablet by mouth once daily. 30 tablet 0 ibuprofen (MOTRIN) 800 mg tablet Take 1 [...] ANTITRYPSIN DEFICIENCY SCREENING Never done EXAM: BP 142/84 Pulse 63 Resp 16 Wt 65.8 kg (145 lb) SpO2 98% BMI 21.41 kg/m? Pleasant adult woman in no acute distress. [...] No JVD with HOB at 30 degrees. Extrem: no clubbing or cyanosis. Edema: none. Extremities are warm and pink with prompt capillary refill. ASSESSMENT/PLAN: 1. Hypertension, essential - ICD9: 401.9, ICD10: I10 - suboptimal control but patient was just restarted on metoprolol, will recheck in 4 weeks. - Continue current medication(s) - Recommended regular aerobic exercise. - Recommend home blood pressure monitoring, to bring results in on next visit - Goal of BP <130/80 M Cici Palomares PA-C Some of this note may have been copied and pasted for the purpose of history context and comparison. CNOV Observed: 11/08/2022 1:20 PM Status: COMPLETED Source: [facility] REPOSITORY Office Visit (FAMPWS) MARILUZ GARCIA ([id number]) 1970 F Date Time Provider Department 11/08/22 1:20 PM Jaimee PALOMARES During your visit today, we recorded the following information about you: Pulse Respiration Blood pressure Weight 63/minute 16/minute 142/84 65.8 kg M Cici Palomares PA-C 11/08/2022 8:05 PM Signed 52 year old female with c/o here [...] having emergency surgery for hernia sent to [facility]. Still having some flashes shoot [...] care 05/15/2020 HOSPITAL/ER FOLLOW UP Which facility: [facility] Dates of visit: 05/10-05/13/2020 Preadmission evaluation: [...] of admission 05/01/2021 Date of discharge: Facility: [facility] 05/01/2021 presented to the emergency room with acute alcohol intoxication, initial alcohol level 7-8. Acknowledges over the last 5 months drinking 15 packs a day at 8% alcohol (marcin samaniego). Vital signs 96.6 F-78-18-111/73-98%. Appearance was no acute distress. WBC 7.9-Hgb 13.8-HCT 39 Encounter for support and coordination of transition of care 05/05/2022 05/05/2022 patient called squad, transported to [facility] with lightheadedness and multiple syncopal [...] HX 1989's LAPAROSCOPY SURG CHOLECYSTECTOMY 05/12/2020 NEUROPLASTY AND/TRANSPOS MEDIAN [...] autograft, fell in firepit TONSILLECTOMY AND ADENOIDECTOMY <AGE 10 1979 Social History Tobacco [...] Pain With Left-Sided Sciatica Pe (Pulmonary Thromboembolism) ([facility]) Hyperglycemia Stasis Edema Right Lumbar Radiculopathy Obesity, Class III, BMI >= 40 (morbid obesity) E66.01 Delusional Disorder ([facility]) Chronic Low Back Pain With Sciatica Abnormal Echocardiogram Chronic Left-Sided Low Back Pain With Sciatica Copd (Chronic Obstructive Pulmonary Disease) With Chronic Bronchitis ([facility]) Positive Urine Drug Screen Lumbar Spondylosis Cervical Spondylosis Without Myelopathy Other Chest Pain Stress Incontinence Chronic Active Hepatitis C ([facility]) History of Colonic Polyps Traumatic Closed Nondisp Torus Fracture of Distal Radial Metaphysis, Right, With Routine Healing, Subsequent Encounter Bacterial Vaginosis Spinal Stenosis, Lumbar Region, Without Neurogenic Claudication Cognitive Impairment, Mild, So Stated Current Outpatient Medications Medication Sig Dispense Refill metoprolol succinate ER (TOPROL XL) 50 mg 24 hr tablet Take 1 tablet by mouth once daily. 30 tablet 0 ibuprofen (MOTRIN) 800 mg tablet Take 1 [...] ANTITRYPSIN DEFICIENCY SCREENING Never done EXAM: BP 142/84 Pulse 63 Resp 16 Wt 65.8 kg (145 lb) SpO2 98% BMI 21.41 kg/m? Pleasant adult woman in no acute distress. [...] No JVD with HOB at 30 degrees. Extrem: no clubbing or cyanosis. Edema: none. Extremities are warm and pink with prompt capillary refill. ASSESSMENT/PLAN: 1. Hypertension, essential - ICD9: 401.9, ICD10: I10 - suboptimal control but patient was just restarted on metoprolol, will recheck in 4 weeks. - Continue current medication(s) - Recommended regular aerobic exercise. - Recommend home blood pressure monitoring, to bring results in on next visit - Goal of BP <130/80 M Cici Palomares PA-C Some of this note may have been copied and pasted for the purpose of history context and comparison. Allergies As of Date: 11/08/2022 Noted Allergy Reaction FENTANYL 08/22/2015 14 - Other: See Comments Comments: PATCH ONLY. Respiratory distress due to rapid absorption. CHANTIX (VARENICLINE) 09/30/2016 5 - Intolerance Comments: hallucinations Date Reviewed: 10/20/2022 Reviewed by: Deric Dixon Cma - Fully Assessed Reason for Visit: Follow Up [171] Primary Visit Diagnosis:Hypertension, essential [I10] Prescriptions as of 11/08/2022 - metoprolol succinate ER (TOPROL XL) 50 mg 24 hr tablet Take 1 tablet by mouth once daily. - ibuprofen (MOTRIN) 800 mg tablet Take 1 tablet by mouth every 8 hours as needed for pain. Take with food. - cyanocobalamin (VITAMIN B-12) 1,000 mcg tab Take 1 tablet by mouth once daily. - OLANZapine (ZYPREXA) 5 mg tablet Take 1 tablet by mouth once daily. - buPROPion XL (WELLBUTRIN XL) 150 mg 24 hr tablet Take 1 tablet by mouth once daily. - traZODone (DESYREL) 150 mg tablet Take 1 tablet by mouth at bedtime as needed. - WALKER ROLLATOR SEAT WITH 6 WHEELS - RED For daily use. M54.40, G89.29 Chronic left-sided low back pain with sciatica, sciatica laterality unspecified (primary encounter diagnosis) M51.36 DDD (degenerative disc disease), lumbar M47.816 Lumbar spondylosis R26.81 Gait instability - Cholecalciferol, Vitamin D3, (VITAMIN D) 25 mcg (1,000 unit) cap Take 1 capsule by mouth once daily. - omeprazole (PRILOSEC) 20 mg capsule TAKE 1 CAPSULE BY MOUTH DAILY - albuterol HFA (VENTOLIN HFA) 90 mcg/actuation inhaler Inhale 2 Puffs as instructed every 4 hours as needed for wheezing/shortness of breath. - atorvastatin (LIPITOR) 40 mg tablet Take 1 tablet by mouth daily at bedtime. - pregabalin (LYRICA) 150 mg capsule Take one pill three times per day Do not start before July 26, 2022. - mirabegron (MYRBETRIQ) 25 mg Tb24 Take 1 tablet by mouth once daily. - thiamine (VITAMIN B1) 100 mg tablet Take 1 tablet by mouth once daily. - tiotropium bromide (SPIRIVA RESPIMAT) 2.5 mcg/actuation inhaler Inhale 2 Puffs as instructed once daily. - ferrous sulfate 325 mg (65 mg iron) tablet Take 1 tablet by mouth twice daily. - budesonide-formoterol (SYMBICORT) 160-4.5 mcg/actuation inhaler Inhale 2 Puffs as instructed twice daily. - L. acidophilus-L. rhamnosus (FLORAJEN WOMEN) 15 billion cell cap Take 1 capsule by mouth once daily. - lisinopril (ZESTRIL, PRINIVIL) 20 mg tablet Take 1 tablet by mouth once daily. - VITAMIN C 500 mg tablet - oxybutynin ER (DITROPAN XL) 10 mg 24 hr tablet Take 1 tablet by mouth once daily. - albuterol (PROVENTIL) 2.5 mg /3 mL (0.083 %) nebulizer solution Use 3 mL via nebulizer every 4 hours as needed for wheezing/shortness of breath. Use over 5-15minutes. - Nebulizers Use as directed. - levothyroxine (SYNTHROID) 25 mcg tablet Take 25 mcg by mouth daily before breakfast. - COMPOUNDED PRESCRIPTION Standard size Rollator Walker #1 Dx Large Blood Pressure Cuff #1 M51.36 DDD (degenerative disc disease), lumbar (primary encounter diagnosis) I10 Essential hypertension - COMPOUNDED PRESCRIPTION ADJUSTABLE CANE DX M51.36 Problem List As Of Date 11/08/2022 Noted Resolved Back pain [M54.9] DDD (degenerative disc disease), lumbar [M51.36] Emphysema of lung (HCC) [J43.9] Tobacco use disorder [F17.200] Hypertension [I10] GERD (gastroesophageal reflux disease) [K21.9] Carpal tunnel syndrome, bilateral [G56.03] 09/23/2015 Obesity [E66.9] Anemia [D64.9] 11/04/2015 Radiculopathy, lumbar region [M54.16] 11/05/2015 Alcohol abuse [F10.10] Chronic midline low back pain with left-sided s*04/21/2016 PE (pulmonary thromboembolism) (HCC) [I26.99] Hyperglycemia [R73.9] 07/14/2016 Stasis edema [I87.309] 07/28/2016 Right lumbar radiculopathy [M54.16] 08/11/2016 Obesity, Class III, BMI >= 40 (morbid obesity) *09/29/2016 Delusional disorder (HCC) [F22] 10/14/2016 Chronic low back pain with sciatica [M54.40, G8*06/07/2017 Abnormal echocardiogram [R93.1] 08/18/2017 Chronic left-sided low back pain with sciatica *11/29/2017 COPD (chronic obstructive pulmonary disease) wi*03/13/2018 Positive urine drug screen [R82.5] 08/16/2018 Encounter for support and coordination of trans*05/15/2020 05/02/2021 Mild protein-calorie malnutrition (HCC) [E44.1] 08/26/2020 11/12/2021 Lumbar spondylosis [M47.816] 02/26/2021 Cervical spondylosis without myelopathy [M47.81*02/26/2021 Encounter for support and coordination of trans*05/02/2021 07/23/2021 Other chest pain [R07.89] 10/21/2021 Stress incontinence [N39.3] 11/12/2021 Chronic active hepatitis C (HCC) [B18.2] 11/23/2021 History of colonic polyps [Z86.010] 11/23/2021 Traumatic closed nondisp torus fracture of dist*01/31/2022 Bacterial vaginosis [N76.0, B96.89] 02/02/2022 Spinal stenosis, lumbar region, without neuroge*02/24/2022 Cognitive impairment, mild, so stated [G31.84] 02/27/2022 Disposition: Return in about 4 weeks (around 12/06/2022). Follow-up and Disposition History for Encounter Date Provider Department Center 11/08/2022 [id number] PALOMARES [facility] Encounter Status:Closed by Jaimee PALOMARES on 11/08/22 ALYSSAN Observed: 11/03/2022 12:00 AM Status: COMPLETED Source: [facility] REPOSITORY Telephone (JOAO) MARILUZ GARCIA ([id number]) 1970 F Date Time Provider Department 11/03/22 Jaimee PALOMARES During your visit today, we recorded the following information about you: Gaye Boyle LPN 11/03/2022 11:35 AM Signed Pt calls states is at her dentist office to have a procedure they will not do this because her blood pressure is currently 196/129. She said other than feeling a bit dizzy every once in a while did not know. This nurse suggested er for the b/p being this high. But explained would also send this to her doctor for anything he may want done. Jaimee Palomares PA-C 11/03/2022 11:42 AM Signed Have her come into the office for recheck tomorrow as NV and we will do unannounced urine tox screens . Telephone on 11/03/22 TOX SCREEN ROUT UR PAIN PANEL, UR QUANT PAIN PANEL, UR QUANT SPECIMEN VALIDITY, URINE Thanks, ALEIDA Diane LPN 11/03/2022 12:55 PM Signed Patient is actually on her way to the ER currently. Asked her to please contact the office after being seen there to update us with what happens. Patient is agreeable. Richard Almazan DO 11/03/2022 8:25 PM Signed Patient in the EMERGENCY DEPARTMENT tonight for elevated blood pressure of 200s/110 range. She was treated with IVF and IV hydralazine multiple doses. Sent home with oral metoprolol. rx sent in as well. Please make EMERGENCY DEPARTMENT follow up for BLOOD PRESSURE follow up in office Richard Almazan DO The following approved medication requests have been transmitted electronically. Requested Prescriptions Signed Prescriptions Disp Refills metoprolol succinate ER (TOPROL XL) 50 mg 24 hr tablet 30 tablet 0 Sig: Take 1 tablet by mouth once daily. Authorizing Provider: RICHARD ALMAZAN DO Lindsey Schmidt 11/04/2022 9:33 AM Signed Spoke with patient. She was given dose of Metoprolol last night in ER and she is to product picker Rx today from pharmacy. She is scheduled already for Wednesday 11/08 with Faustino Palomares. Advised her to keep this appointment. She states she'll be here. Suzie Reno Allergies As of Date: 11/03/2022 Noted Allergy Reaction FENTANYL 08/22/2015 14 - Other: See Comments Comments: PATCH ONLY. Respiratory distress due to rapid absorption. CHANTIX (VARENICLINE) 09/30/2016 5 - Intolerance Comments: hallucinations Date Reviewed: 10/20/2022 Reviewed by: Deric Dixon Cma - Fully Assessed Reason for Visit: Blood Pressure [15] Primary Visit Diagnosis:Encounter for drug screening [Z02.83] Other Visit Diagnosis:Primary hypertension [I10] Order(s):TOX SCREEN ROUT UR [SQUTOX2] Order #: [id number] PAIN PANEL, UR QUANT [SQUQNTPP] Order #: [id number] PAIN PANEL, UR QUANT [MBL9944] Reflex Order#: [id number] (Ord#:[id number]) SPECIMEN VALIDITY, URINE [SXH1632] Reflex Order#: [id number] (Ord#:[id number]) metoprolol succinate ER (TOPROL XL) 50 mg 24 hr tabletTake 1 tablet by mouth once daily.Disp: 30 tabletRfl: 0 Prescriptions as of 11/04/2022 - metoprolol succinate ER (TOPROL XL) 50 mg 24 hr tablet Take 1 tablet by mouth once daily. - ibuprofen (MOTRIN) 800 mg tablet Take 1 tablet by mouth every 8 hours as needed for pain. Take with food. - cyanocobalamin (VITAMIN B-12) 1,000 mcg tab Take 1 tablet by mouth once daily. - OLANZapine (ZYPREXA) 5 mg tablet Take 1 tablet by mouth once daily. - buPROPion XL (WELLBUTRIN XL) 150 mg 24 hr tablet Take 1 tablet by mouth once daily. - traZODone (DESYREL) 150 mg tablet Take 1 tablet by mouth at bedtime as needed. - WALKER ROLLATOR SEAT WITH 6 WHEELS - RED For daily use. M54.40, G89.29 Chronic left-sided low back pain with sciatica, sciatica laterality unspecified (primary encounter diagnosis) M51.36 DDD (degenerative disc disease), lumbar M47.816 Lumbar spondylosis R26.81 Gait instability - Cholecalciferol, Vitamin D3, (VITAMIN D) 25 mcg (1,000 unit) cap Take 1 capsule by mouth once daily. - omeprazole (PRILOSEC) 20 mg capsule TAKE 1 CAPSULE BY MOUTH DAILY - albuterol HFA (VENTOLIN HFA) 90 mcg/actuation inhaler Inhale 2 Puffs as instructed every 4 hours as needed for wheezing/shortness of breath. - atorvastatin (LIPITOR) 40 mg tablet Take 1 tablet by mouth daily at bedtime. - pregabalin (LYRICA) 150 mg capsule Take one pill three times per day Do not start before July 26, 2022. - mirabegron (MYRBETRIQ) 25 mg Tb24 Take 1 tablet by mouth once daily. - thiamine (VITAMIN B1) 100 mg tablet Take 1 tablet by mouth once daily. - tiotropium bromide (SPIRIVA RESPIMAT) 2.5 mcg/actuation inhaler Inhale 2 Puffs as instructed once daily. - ferrous sulfate 325 mg (65 mg iron) tablet Take 1 tablet by mouth twice daily. - budesonide-formoterol (SYMBICORT) 160-4.5 mcg/actuation inhaler Inhale 2 Puffs as instructed twice daily. - L. acidophilus-L. rhamnosus (FLORAJEN WOMEN) 15 billion cell cap Take 1 capsule by mouth once daily. - lisinopril (ZESTRIL, PRINIVIL) 20 mg tablet Take 1 tablet by mouth once daily. - VITAMIN C 500 mg tablet - oxybutynin ER (DITROPAN XL) 10 mg 24 hr tablet Take 1 tablet by mouth once daily. - albuterol (PROVENTIL) 2.5 mg /3 mL (0.083 %) nebulizer solution Use 3 mL via nebulizer every 4 hours as needed for wheezing/shortness of breath. Use over 5-15minutes. - Nebulizers Use as directed. - levothyroxine (SYNTHROID) 25 mcg tablet Take 25 mcg by mouth daily before breakfast. - COMPOUNDED PRESCRIPTION Standard size Rollator Walker #1 Dx Large Blood Pressure Cuff #1 M51.36 DDD (degenerative disc disease), lumbar (primary encounter diagnosis) I10 Essential hypertension - COMPOUNDED PRESCRIPTION ADJUSTABLE CANE DX M51.36 Problem List As Of Date 11/03/2022 Noted Resolved Back pain [M54.9] DDD (degenerative disc disease), lumbar [M51.36] Emphysema of lung (HCC) [J43.9] Tobacco use disorder [F17.200] Hypertension [I10] GERD (gastroesophageal reflux disease) [K21.9] Carpal tunnel syndrome, bilateral [G56.03] 09/23/2015 Obesity [E66.9] Anemia [D64.9] 11/04/2015 Radiculopathy, lumbar region [M54.16] 11/05/2015 Alcohol abuse [F10.10] Chronic midline low back pain with left-sided s*04/21/2016 PE (pulmonary thromboembolism) (HCC) [I26.99] Hyperglycemia [R73.9] 07/14/2016 Stasis edema [I87.309] 07/28/2016 Right lumbar radiculopathy [M54.16] 08/11/2016 Obesity, Class III, BMI >= 40 (morbid obesity) *09/29/2016 Delusional disorder (HCC) [F22] 10/14/2016 Chronic low back pain with sciatica [M54.40, G8*06/07/2017 Abnormal echocardiogram [R93.1] 08/18/2017 Chronic left-sided low back pain with sciatica *11/29/2017 COPD (chronic obstructive pulmonary disease) wi*03/13/2018 Positive urine drug screen [R82.5] 08/16/2018 Encounter for support and coordination of trans*05/15/2020 05/02/2021 Mild protein-calorie malnutrition (HCC) [E44.1] 08/26/2020 11/12/2021 Lumbar spondylosis [M47.816] 02/26/2021 Cervical spondylosis without myelopathy [M47.81*02/26/2021 Encounter for support and coordination of trans*05/02/2021 07/23/2021 Other chest pain [R07.89] 10/21/2021 Stress incontinence [N39.3] 11/12/2021 Chronic active hepatitis C (HCC) [B18.2] 11/23/2021 History of colonic polyps [Z86.010] 11/23/2021 Traumatic closed nondisp torus fracture of dist*01/31/2022 Bacterial vaginosis [N76.0, B96.89] 02/02/2022 Spinal stenosis, lumbar region, without neuroge*02/24/2022 Cognitive impairment, mild, so stated [G31.84] 02/27/2022 Prescriptions ordered this encounter Disp Refills Start End METOPROLOL SUCCINATE ER 50 MG TABLET* 30 t* 0 11/03/2022 Route: ORAL Sig: Take 1 tablet by mouth once daily. Encounter Status:Closed by SUZIE RENO on 11/04/22 CNPN Observed: 10/22/2022 12:00 AM Status: COMPLETED Source: [facility] REPOSITORY Telephone (FAMPWS) MARILUZ GARCIA ([id number]) 1970 F Date Time Provider Department 10/22/22 Jaimee [facility]ARES [facility] During your visit today, we recorded the following information about you: Maribell Baltazar PUMP ERECTOR 10/22/2022 2:33 PM Signed Patient calling she lost her handicap placard rx, asking for another one please. She said she needs one. Patient wants to pick it up today, since she has ride to [place]. Please advise Jaimee Palomares PA-C 10/22/2022 4:13 PM Signed This was done already. Reprinted. Thanks, ALEIDA Diane MA 11/10/2022 8:46 AM Signed I do not see that this patient has had a follow-up appointment with me. I have prescribed 30 days with 1 refill for oxybutynin . She should have an appointment with Dorothy ying called back and information was given/pt understands Nova Wheeler MA Allergies As of Date: 10/22/2022 Noted Allergy Reaction FENTANYL 08/22/2015 14 - Other: See Comments Comments: PATCH ONLY. Respiratory distress due to rapid absorption. CHANTIX (VARENICLINE) 09/30/2016 5 - Intolerance Comments: hallucinations Date Reviewed: 10/20/2022 Reviewed by: Deric Dixon Cma - Fully Assessed Reason for Visit: requesting handicap placard rx [Other] Prescriptions as of 11/10/2022 - oxybutynin ER (DITROPAN XL) 10 mg 24 hr tablet Take 1 tablet by mouth once daily. - metoprolol succinate ER (TOPROL XL) 50 mg 24 hr tablet Take 1 tablet by mouth once daily. - ibuprofen (MOTRIN) 800 mg tablet Take 1 tablet by mouth every 8 hours as needed for pain. Take with food. - cyanocobalamin (VITAMIN B-12) 1,000 mcg tab Take 1 tablet by mouth once daily. - OLANZapine (ZYPREXA) 5 mg tablet Take 1 tablet by mouth once daily. - buPROPion XL (WELLBUTRIN XL) 150 mg 24 hr tablet Take 1 tablet by mouth once daily. - traZODone (DESYREL) 150 mg tablet Take 1 tablet by mouth at bedtime as needed. - WALKER ROLLATOR SEAT WITH 6 WHEELS - RED For daily use. M54.40, G89.29 Chronic left-sided low back pain with sciatica, sciatica laterality unspecified (primary encounter diagnosis) M51.36 DDD (degenerative disc disease), lumbar M47.816 Lumbar spondylosis R26.81 Gait instability - Cholecalciferol, Vitamin D3, (VITAMIN D) 25 mcg (1,000 unit) cap Take 1 capsule by mouth once daily. - omeprazole (PRILOSEC) 20 mg capsule TAKE 1 CAPSULE BY MOUTH DAILY - albuterol HFA (VENTOLIN HFA) 90 mcg/actuation inhaler Inhale 2 Puffs as instructed every 4 hours as needed for wheezing/shortness of breath. - atorvastatin (LIPITOR) 40 mg tablet Take 1 tablet by mouth daily at bedtime. - pregabalin (LYRICA) 150 mg capsule Take one pill three times per day Do not start before July 26, 2022. - mirabegron (MYRBETRIQ) 25 mg Tb24 Take 1 tablet by mouth once daily. - thiamine (VITAMIN B1) 100 mg tablet Take 1 tablet by mouth once daily. - tiotropium bromide (SPIRIVA RESPIMAT) 2.5 mcg/actuation inhaler Inhale 2 Puffs as instructed once daily. - ferrous sulfate 325 mg (65 mg iron) tablet Take 1 tablet by mouth twice daily. - budesonide-formoterol (SYMBICORT) 160-4.5 mcg/actuation inhaler Inhale 2 Puffs as instructed twice daily. - L. acidophilus-L. rhamnosus (FLORAJEN WOMEN) 15 billion cell cap Take 1 capsule by mouth once daily. - lisinopril (ZESTRIL, PRINIVIL) 20 mg tablet Take 1 tablet by mouth once daily. - VITAMIN C 500 mg tablet - albuterol (PROVENTIL) 2.5 mg /3 mL (0.083 %) nebulizer solution Use 3 mL via nebulizer every 4 hours as needed for wheezing/shortness of breath. Use over 5-15minutes. - Nebulizers Use as directed. - levothyroxine (SYNTHROID) 25 mcg tablet Take 25 mcg by mouth daily before breakfast. - COMPOUNDED PRESCRIPTION Standard size Rollator Walker #1 Dx Large Blood Pressure Cuff #1 M51.36 DDD (degenerative disc disease), lumbar (primary encounter diagnosis) I10 Essential hypertension - COMPOUNDED PRESCRIPTION ADJUSTABLE CANE DX M51.36 Problem List As Of Date 10/22/2022 Noted Resolved Back pain [M54.9] DDD (degenerative disc disease), lumbar [M51.36] Emphysema of lung (HCC) [J43.9] Tobacco use disorder [F17.200] Hypertension [I10] GERD (gastroesophageal reflux disease) [K21.9] Carpal tunnel syndrome, bilateral [G56.03] 09/23/2015 Obesity [E66.9] Anemia [D64.9] 11/04/2015 Radiculopathy, lumbar region [M54.16] 11/05/2015 Alcohol abuse [F10.10] Chronic midline low back pain with left-sided s*04/21/2016 PE (pulmonary thromboembolism) (HCC) [I26.99] Hyperglycemia [R73.9] 07/14/2016 Stasis edema [I87.309] 07/28/2016 Right lumbar radiculopathy [M54.16] 08/11/2016 Obesity, Class III, BMI >= 40 (morbid obesity) *09/29/2016 Delusional disorder (HCC) [F22] 10/14/2016 Chronic low back pain with sciatica [M54.40, G8*06/07/2017 Abnormal echocardiogram [R93.1] 08/18/2017 Chronic left-sided low back pain with sciatica *11/29/2017 COPD (chronic obstructive pulmonary disease) wi*03/13/2018 Positive urine drug screen [R82.5] 08/16/2018 Encounter for support and coordination of trans*05/15/2020 05/02/2021 Mild protein-calorie malnutrition (HCC) [E44.1] 08/26/2020 11/12/2021 Lumbar spondylosis [M47.816] 02/26/2021 Cervical spondylosis without myelopathy [M47.81*02/26/2021 Encounter for support and coordination of trans*05/02/2021 07/23/2021 Other chest pain [R07.89] 10/21/2021 Stress incontinence [N39.3] 11/12/2021 Chronic active hepatitis C (HCC) [B18.2] 11/23/2021 History of colonic polyps [Z86.010] 11/23/2021 Traumatic closed nondisp torus fracture of dist*01/31/2022 Bacterial vaginosis [N76.0, B96.89] 02/02/2022 Spinal stenosis, lumbar region, without neuroge*02/24/2022 Cognitive impairment, mild, so stated [G31.84] 02/27/2022 Encounter Status:Closed by NOVA WHEELER on 11/10/22 CNOV Observed: 10/20/2022 11:30 AM Status: COMPLETED Source: [facility] REPOSITORY Office Visit (OBGYWM) MARILUZ GARCIA ([id number]) 1970 F Date Time Provider Department 10/20/22 11:30 AM JENIFER YEAGER During your visit today, we recorded the following information about you: Blood pressure Weight 144/84 61.2 kg Jenifer Yeager APRN.CNM 10/20/2022 9:15 PM Signed Mariluz Garcia is a 52 year old [...] L0 SAB0 IAB0 Ectopic0 Multiple0 Live Births0 Pattern Cutter History LMP: Hysterectomy Age at Menarche: Age at First : Age at Menopause: Pattern Cutter History Comments: Sexual Activity: Not Currently; No partner data on record Contraception: No contraception data on record PAST MEDICAL HISTORY Diagnosis Date Alcohol abuse Anemia Back pain Blood dyscrasia Cervical spondylosis without myelopathy Cholecystitis 04/2020 Chronic hepatitis C (HCC) DDD (degenerative disc disease), lumbar Depression with anxiety Drug use 08/15/2018 ecstacy Emphysema of lung ([facility]) Encounter for support and coordination of transition of care 05/15/2020 HOSPITAL/ER FOLLOW UP Which facility: [facility] Dates of visit: 05/10-05/13/2020 Preadmission evaluation: [...] of admission 05/01/2021 Date of discharge: Facility: [facility] 05/01/2021 presented to the emergency room with acute alcohol intoxication, initial alcohol level 7-8. Acknowledges over the last 5 months drinking 15 packs a day at 8% alcohol (marcin samaniego). Vital signs 96.6 F-78-18-111/73-98%. Appearance was no acute distress. WBC 7.9-Hgb 13.8-HCT 39 Encounter for support and coordination of transition of care 05/05/2022 05/05/2022 patient called squad, transported to [facility] with lightheadedness and multiple syncopal episodes one of them resulting in injury to her right foot. GERD (gastroesophageal reflux disease) Hyperglycemia Hypertension Lung abscess (HCC) saw Néstor Li and Dr. Zarate. Major depression Mild protein-calorie malnutrition (HCC) 08/26/2020 Obesity PE (pulmonary thromboembolism) ([facility]) PTSD (post-traumatic stress disorder) Snoring Tobacco use [...] autograft, fell in firepit TONSILLECTOMY AND ADENOIDECTOMY <AGE 10 1977 FAMILY HISTORY Problem [...] Wt 135 lb (61.2 kg) BMI 19.94 kg/m? GENERAL: pleasant, female in no apparent distress [...] do no resolve recommend testing and exam. PHU Clarke APRN.CNM 10/20/2022 11:32 AM Signed Management of Benign Breast Pain / Fibrocystic Changes Decrease or avoid intake of caffeine, including coffee, teas, sodas, and chocolate. Decrease or avoid nicotine. Wear a support or sports (not underwire) bra. Take vhfw-ptx-elgdbpg ibuprofen (Advil/Motrin) or other NSAIDs, such as naproxen (Aleve). Take 3 grams (3000 mg.) of evening primrose oil (available rubz-mjq-kkghmpk) in divided doses for 2 months. Take [...] Common product names for this medicine are Flagyl? and Protostat?. Metronidazole may be given as a pill [...] your health care provider. You cannot purchase ktbo-oxh-ayqfnfg products to treat BV. Products for douching [...] burning, swelling, or soreness around the vagina ?Copyright 7394-1608 The [facility]. All rights reserved. This information is provided by the [facility] and is not intended to replace the medical advice of your doctor or health care provider. Please consult your health care provider for advice about a specific medical condition. For additional written health information, please contact the Health Information Center at the [facility] or toll-free extension [phone] or visit [email or web address] This document was last reviewed on: 2009 Referring Provider: SELF [200] Allergies As of Date: 10/20/2022 Noted Allergy Reaction FENTANYL 08/22/2015 14 - Other: See Comments Comments: PATCH ONLY. Respiratory distress due to rapid absorption. CHANTIX (VARENICLINE) 09/30/2016 5 - Intolerance Comments: hallucinations Date Reviewed: 10/20/2022 Reviewed by: Deric Dixon Science Professor - Fully Assessed Reason for Visit: Breast Problem [16] Cmt: Breast pain - left breast x2-3 months Primary Visit Diagnosis:Mastodynia of left breast [N64.4] Other Visit Diagnoses:Dense breast tissue [R92.2] Vaginal discharge [N89.8] Vaginal odor [N89.8] Order(s):metroNIDAZOLE (FLAGYL) 500 mg tabletTake 1 tablet by mouth twice daily for 7 days.Disp: 14 tabletRfl: [address] [facility] [] Order #: [id number]: 1 FUTURE Prescriptions as of 10/20/2022 - metroNIDAZOLE (FLAGYL) 500 mg tablet Take 1 tablet by mouth twice daily for 7 days. - cyanocobalamin (VITAMIN B-12) 1,000 mcg tab Take 1 tablet by mouth once daily. - OLANZapine (ZYPREXA) 5 mg tablet Take 1 tablet by mouth once daily. - buPROPion XL (WELLBUTRIN XL) 150 mg 24 hr tablet Take 1 tablet by mouth once daily. - traZODone (DESYREL) 150 mg tablet Take 1 tablet by mouth at bedtime as needed. - WALKER ROLLATOR SEAT WITH 6 WHEELS - RED For daily use. M54.40, G89.29 Chronic left-sided low back pain with sciatica, sciatica laterality unspecified (primary encounter diagnosis) M51.36 DDD (degenerative disc disease), lumbar M47.816 Lumbar spondylosis R26.81 Gait instability - ibuprofen (MOTRIN) 800 mg tablet Take 1 tablet by mouth every 8 hours as needed for pain. Take with food. - Cholecalciferol, Vitamin D3, (VITAMIN D) 25 mcg (1,000 unit) cap Take 1 capsule by mouth once daily. - omeprazole (PRILOSEC) 20 mg capsule TAKE 1 CAPSULE BY MOUTH DAILY - albuterol HFA (VENTOLIN HFA) 90 mcg/actuation inhaler Inhale 2 Puffs as instructed every 4 hours as needed for wheezing/shortness of breath. - baclofen (LIORESAL) 10 mg tablet Take 1 tablet by mouth twice daily as needed. - atorvastatin (LIPITOR) 40 mg tablet Take 1 tablet by mouth daily at bedtime. - pregabalin (LYRICA) 150 mg capsule Take one pill three times per day Do not start before July 26, 2022. - mirabegron (MYRBETRIQ) 25 mg Tb24 Take 1 tablet by mouth once daily. - thiamine (VITAMIN B1) 100 mg tablet Take 1 tablet by mouth once daily. - tiotropium bromide (SPIRIVA RESPIMAT) 2.5 mcg/actuation inhaler Inhale 2 Puffs as instructed once daily. - ferrous sulfate 325 mg (65 mg iron) tablet Take 1 tablet by mouth twice daily. - budesonide-formoterol (SYMBICORT) 160-4.5 mcg/actuation inhaler Inhale 2 Puffs as instructed twice daily. - L. acidophilus-L. rhamnosus (FLORAJEN WOMEN) 15 billion cell cap Take 1 capsule by mouth once daily. - lisinopril (ZESTRIL, PRINIVIL) 20 mg tablet Take 1 tablet by mouth once daily. - VITAMIN C 500 mg tablet - oxybutynin ER (DITROPAN XL) 10 mg 24 hr tablet Take 1 tablet by mouth once daily. - albuterol (PROVENTIL) 2.5 mg /3 mL (0.083 %) nebulizer solution Use 3 mL via nebulizer every 4 hours as needed for wheezing/shortness of breath. Use over 5-15minutes. - Nebulizers Use as directed. - levothyroxine (SYNTHROID) 25 mcg tablet Take 25 mcg by mouth daily before breakfast. - COMPOUNDED PRESCRIPTION Standard size Rollator Walker #1 Dx Large Blood Pressure Cuff #1 M51.36 DDD (degenerative disc disease), lumbar (primary encounter diagnosis) I10 Essential hypertension - COMPOUNDED PRESCRIPTION ADJUSTABLE CANE DX M51.36 Problem List As Of Date 10/20/2022 Noted Resolved Back pain [M54.9] DDD (degenerative disc disease), lumbar [M51.36] Emphysema of lung (HCC) [J43.9] Tobacco use disorder [F17.200] Hypertension [I10] GERD (gastroesophageal reflux disease) [K21.9] Carpal tunnel syndrome, bilateral [G56.03] 09/23/2015 Obesity [E66.9] Anemia [D64.9] 11/04/2015 Radiculopathy, lumbar region [M54.16] 11/05/2015 Alcohol abuse [F10.10] Chronic midline low back pain with left-sided s*04/21/2016 PE (pulmonary thromboembolism) (HCC) [I26.99] Hyperglycemia [R73.9] 07/14/2016 Stasis edema [I87.309] 07/28/2016 Right lumbar radiculopathy [M54.16] 08/11/2016 Obesity, Class III, BMI >= 40 (morbid obesity) *09/29/2016 Delusional disorder (HCC) [F22] 10/14/2016 Chronic low back pain with sciatica [M54.40, G8*06/07/2017 Abnormal echocardiogram [R93.1] 08/18/2017 Chronic left-sided low back pain with sciatica *11/29/2017 COPD (chronic obstructive pulmonary disease) wi*03/13/2018 Positive urine drug screen [R82.5] 08/16/2018 Encounter for support and coordination of trans*05/15/2020 05/02/2021 Mild protein-calorie malnutrition (HCC) [E44.1] 08/26/2020 11/12/2021 Lumbar spondylosis [M47.816] 02/26/2021 Cervical spondylosis without myelopathy [M47.81*02/26/2021 Encounter for support and coordination of trans*05/02/2021 07/23/2021 Other chest pain [R07.89] 10/21/2021 Stress incontinence [N39.3] 11/12/2021 Chronic active hepatitis C (HCC) [B18.2] 11/23/2021 History of colonic polyps [Z86.010] 11/23/2021 Traumatic closed nondisp torus fracture of dist*01/31/2022 Bacterial vaginosis [N76.0, B96.89] 02/02/2022 Spinal stenosis, lumbar region, without neuroge*02/24/2022 Cognitive impairment, mild, so stated [G31.84] 02/27/2022 Other instructions from your clinician: Management of Benign Breast Pain / Fibrocystic Changes Decrease or avoid intake of caffeine, including coffee, teas, sodas, and chocolate. Decrease or avoid nicotine. Wear a support or sports (not underwire) bra. Take vejy-waz-rjxjhrv ibuprofen (Advil/Motrin) or other NSAIDs, such as naproxen (Aleve). Take 3 grams (3000 mg.) of evening primrose oil (available otdx-poq-khcowrj) in divided doses for 2 months. Take [...] Common product names for this medicine are Flagyl? and Protostat?. Metronidazole may be given as a pill [...] your health care provider. You cannot purchase wyuo-gya-ondstxt products to treat BV. Products for douching [...] burning, swelling, or soreness around the vagina ?Copyright 8284-6201 The [facility]. All rights reserved. This information is provided by the [facility] and is not intended to replace the medical advice of your doctor or health care provider. Please consult your health care provider for advice about a specific medical condition. For additional written health information, please contact the Health Information Center at the [facility] or toll-free extension [phone] or visit [email or web address] This document was last reviewed on: 2009 Prescriptions ordered this encounter Disp Refills Start End METRONIDAZOLE 500 MG TABLET 14 t* 0 10/20/2022 10/27/2022 Route: ORAL Sig: Take 1 tablet by mouth twice daily for 7 days. Disposition: Return for breast [facility]. Follow-up and Disposition History for Encounter Date Provider Department Center 10/20/2022 [id number] YEAGER [facility] Encounter Status:Closed by JENIFER YEAGER on 10/20/22 PROGRESS Observed: 10/20/2022 11:02 AM Status: COMPLETED Source: [facility] REPOSITORY HNO ID: [id number] Author: Jenifer Yeager APRN.CNM Service: ? Author Type: Vp Customer Service Type: Progress Notes Filed: 10/20/2022 9:15 PM [...] L0 SAB0 IAB0 Ectopic0 Multiple0 Live Births0 Pattern Cutter History LMP: Hysterectomy Age at Menarche: Age at First : Age at Menopause: Pattern Cutter History Comments: Sexual Activity: Not Currently; No partner data on record Contraception: No contraception data on record PAST MEDICAL HISTORY Diagnosis Date Alcohol abuse Anemia Back pain Blood dyscrasia Cervical spondylosis without myelopathy Cholecystitis 04/2020 Chronic hepatitis C (HCC) DDD (degenerative disc disease), lumbar Depression with anxiety Drug use 08/15/2018 ecstacy Emphysema of lung ([facility]) Encounter for support and coordination of transition of care 05/15/2020 HOSPITAL/ER FOLLOW UP Which facility: [facility] Dates of visit: 05/10-05/13/2020 Preadmission evaluation: [...] of admission 05/01/2021 Date of discharge: Facility: [facility] 05/01/2021 presented to the emergency room with acute alcohol intoxication, initial alcohol level 7-8. Acknowledges over the last 5 months drinking 15 packs a day at 8% alcohol (natty dadalfa). Vital signs 96.6 F-78-18-111/73-98%. Appearance was no acute distress. WBC 7.9-Hgb 13.8-HCT 39 Encounter for support and coordination of transition of care 05/05/2022 05/05/2022 patient called squad, transported to [facility] with lightheadedness and multiple syncopal episodes one of them resulting in injury to her right foot. GERD (gastroesophageal reflux disease) Hyperglycemia Hypertension Lung abscess ([facility]) saw Néstor Li and Dr. Zarate. Major depression Mild protein-calorie malnutrition (HCC) 08/26/2020 Obesity PE (pulmonary thromboembolism) ([facility]) PTSD (post-traumatic stress disorder) Snoring Tobacco use [...] autograft, fell in firepit TONSILLECTOMY AND ADENOIDECTOMY <AGE 10 1977 FAMILY HISTORY Problem [...] Wt 135 lb (61.2 kg) BMI 19.94 kg/m? GENERAL: pleasant, female in no apparent distress [...] recommend testing and exam. Jenifer Yeager APRN.CNM DEPRECATED HGB A1C BLD Collected: 10/20 10:51 AM Status: F Source: [facility] REPOSITORY Order Comment: Specimen Type : BLOOD SPECIMEN Ordering Facility: [facility] Address: [address] [place] [id number] TYPE CODE TESTS RESULT OUT OF RANGE REFERENCE UNITS LAB 4548-4(LOINC) HbA1c MFr Bld 5.1 4.3-5.6 % Result Comment: [place] [employer] betes [employer] guidelines indicate that patients with HgbA1c in the range 5.7-6.4% are at increased risk for development of diabetes, and intervention by lifestyle modification may be beneficial. HgbA1c greater or equal to 6.5% is considered diagnostic of diabetes. LAB 59415-8(LOINC) Est. average glucose Bld gHb Est-mCnc 100 mg/dL Result Comment: eAG: (Estima nery average glucose) is a calculated value from HgbA1c and is loss prevention representative of the average blood glucose level in the last 2-3 month period. Performed By: #### [id number] # ### [facility] CLIA [id number] [address] [place] [id number] [facility] CNOV Observed: 10/14/2022 1:45 PM Status: COMPLETED Source: [facility] REPOSITORY Office Visit (SPAGWO) MARILUZ GARCIA ([id number]) 1970 F Date Time Provider Department 10/14/22 1:45 PM DELORIS TROYWArtemio During your visit today, we recorded the following information about you: Pulse Respiration PROGRESS Observed: 10/14/2022 1:22 PM Status: COMPLETED Source: [facility] REPOSITORY HNO ID: [id number] Author: Shruthi Keita MA Service: ? Author Type: Roving Hand Type: Progress Notes Filed: 10/14/2022 1:57 PM [...] and suicidal ideas. The patient is nervous/anxious. PROGRESS Observed: 10/06/2022 2:50 PM Status: COMPLETED Source: [facility] REPOSITORY HNO ID: [id number] Author: Deloris Troy MD Service: ? Author Type: Physician Type: Progress Notes Filed: 10/14/2022 1:57 PM Note Text: [facility] [place] General Name: Mariluz Garcia : 1970 Purpose: [...] Therapy (Aquatic) - completed her course at [facility]. Completed since July. Studies Obtained: none (relevant [...] information is taken directly from the order analyst system. TECHNIQUE: Routine lumbosacral spine MR protocol [...] scoliotic curvature convex left visible on the hockey scout. [place] at L4-L5. Mild straightening of usual lumbar [...] impingement of the distal cord within the jnarm-ko-esyp. Paraspinal soft tissues: As above. No paraspinal [...] annulus, and facet degenerative change contributes to zkob-iv-vlpkgakl right foraminal narrowing. L4-L5: Disk bulging, loss [...] and assume there are 5 lumbar-type vertebrae. Maintenance Of Way Superintendent: PSCB Transcribe Date/Time: Jun 05 2021 11:26A [...] without neurogenic claudication (M79.18) Myofascial pain Impression AND Plan: 52 year old female, who presents [...] holding to see if truly helping Functional Adventism: Home Exercise Program under provider supervisions - [...] decision making from today's date. Deloris Troy MD, MBA Pain Management [facility] CNPN Observed: 10/05/2022 12:00 AM Status: COMPLETED Source: [facility] REPOSITORY Telephone (UserApp) MARILUZ GARCIA ([id number]) 1970 F Date Time Provider Department 10/05/22 Jaimee PALOMARES [email or web address] During your visit today, we recorded the following information about you: Renata Gonzalez, RN 10/05/2022 4:30 PM Signed Pt called in and reports she lost her handicapped placard. She was told she had to call her PCP because she needed a prescription for it. Pt is asking if provider would write an Rx for her and she would like to have a copy of it for herself. Please call and advise. Jaimee Palomares PA-C 10/07/2022 11:56 AM Signed Printed and taken to nursing desk ALEIDA Diane Ma 10/07/2022 12:59 PM Signed Spoke with patient and placed in mail Allergies As of Date: 10/05/2022 Noted Allergy Reaction FENTANYL 08/22/2015 14 - Other: See Comments Comments: PATCH ONLY. Respiratory distress due to rapid absorption. CHANTIX (VARENICLINE) 09/30/2016 5 - Intolerance Comments: hallucinations Date Reviewed: 08/26/2022 Reviewed by: Urvashi Hughes APRN.APPLIED COMPUTER SCIENCE PROFESSOR - Fully Assessed Reason for Visit: Handicapped roderick [Other] Prescriptions as of 10/09/2022 - OLANZapine (ZYPREXA) 5 mg tablet Take 1 tablet by mouth once daily. - buPROPion XL (WELLBUTRIN XL) 150 mg 24 hr tablet Take 1 tablet by mouth once daily. - traZODone (DESYREL) 150 mg tablet Take 1 tablet by mouth at bedtime as needed. - WALKER ROLLATOR SEAT WITH 6 WHEELS - RED For daily use. M54.40, G89.29 Chronic left-sided low back pain with sciatica, sciatica laterality unspecified (primary encounter diagnosis) M51.36 DDD (degenerative disc disease), lumbar M47.816 Lumbar spondylosis R26.81 Gait instability - ibuprofen (MOTRIN) 800 mg tablet Take 1 tablet by mouth every 8 hours as needed for pain. Take with food. - Cholecalciferol, Vitamin D3, (VITAMIN D) 25 mcg (1,000 unit) cap Take 1 capsule by mouth once daily. - omeprazole (PRILOSEC) 20 mg capsule TAKE 1 CAPSULE BY MOUTH DAILY - albuterol HFA (VENTOLIN HFA) 90 mcg/actuation inhaler Inhale 2 Puffs as instructed every 4 hours as needed for wheezing/shortness of breath. - baclofen (LIORESAL) 10 mg tablet Take 1 tablet by mouth twice daily as needed. - atorvastatin (LIPITOR) 40 mg tablet Take 1 tablet by mouth daily at bedtime. - pregabalin (LYRICA) 150 mg capsule Take one pill three times per day Do not start before July 26, 2022. - mirabegron (MYRBETRIQ) 25 mg Tb24 Take 1 tablet by mouth once daily. - thiamine (VITAMIN B1) 100 mg tablet Take 1 tablet by mouth once daily. - tiotropium bromide (SPIRIVA RESPIMAT) 2.5 mcg/actuation inhaler Inhale 2 Puffs as instructed once daily. - ferrous sulfate 325 mg (65 mg iron) tablet Take 1 tablet by mouth twice daily. - budesonide-formoterol (SYMBICORT) 160-4.5 mcg/actuation inhaler Inhale 2 Puffs as instructed twice daily. - L. acidophilus-L. rhamnosus (FLORAJEN WOMEN) 15 billion cell cap Take 1 capsule by mouth once daily. - cyanocobalamin (VITAMIN B-12) 1,000 mcg tab Take 1 tablet by mouth once daily. - lisinopril (ZESTRIL, PRINIVIL) 20 mg tablet Take 1 tablet by mouth once daily. - VITAMIN C 500 mg tablet - oxybutynin ER (DITROPAN XL) 10 mg 24 hr tablet Take 1 tablet by mouth once daily. - albuterol (PROVENTIL) 2.5 mg /3 mL (0.083 %) nebulizer solution Use 3 mL via nebulizer every 4 hours as needed for wheezing/shortness of breath. Use over 5-15minutes. - Nebulizers Use as directed. - levothyroxine (SYNTHROID) 25 mcg tablet Take 25 mcg by mouth daily before breakfast. - COMPOUNDED PRESCRIPTION Standard size Rollator Walker #1 Dx Large Blood Pressure Cuff #1 M51.36 DDD (degenerative disc disease), lumbar (primary encounter diagnosis) I10 Essential hypertension - COMPOUNDED PRESCRIPTION ADJUSTABLE CANE DX M51.36 Problem List As Of Date 10/05/2022 Noted Resolved Back pain [M54.9] DDD (degenerative disc disease), lumbar [M51.36] Emphysema of lung (HCC) [J43.9] Tobacco use disorder [F17.200] Hypertension [I10] GERD (gastroesophageal reflux disease) [K21.9] Carpal tunnel syndrome, bilateral [G56.03] 09/23/2015 Obesity [E66.9] Anemia [D64.9] 11/04/2015 Radiculopathy, lumbar region [M54.16] 11/05/2015 Alcohol abuse [F10.10] Chronic midline low back pain with left-sided s*04/21/2016 PE (pulmonary thromboembolism) (HCC) [I26.99] Hyperglycemia [R73.9] 07/14/2016 Stasis edema [I87.309] 07/28/2016 Right lumbar radiculopathy [M54.16] 08/11/2016 Obesity, Class III, BMI >= 40 (morbid obesity) *09/29/2016 Delusional disorder (HCC) [F22] 10/14/2016 Chronic low back pain with sciatica [M54.40, G8*06/07/2017 Abnormal echocardiogram [R93.1] 08/18/2017 Chronic left-sided low back pain with sciatica *11/29/2017 COPD (chronic obstructive pulmonary disease) wi*03/13/2018 Positive urine drug screen [R82.5] 08/16/2018 Encounter for support and coordination of trans*05/15/2020 05/02/2021 Mild protein-calorie malnutrition (HCC) [E44.1] 08/26/2020 11/12/2021 Lumbar spondylosis [M47.816] 02/26/2021 Cervical spondylosis without myelopathy [M47.81*02/26/2021 Encounter for support and coordination of trans*05/02/2021 07/23/2021 Other chest pain [R07.89] 10/21/2021 Stress incontinence [N39.3] 11/12/2021 Chronic active hepatitis C (HCC) [B18.2] 11/23/2021 History of colonic polyps [Z86.010] 11/23/2021 Traumatic closed nondisp torus fracture of dist*01/31/2022 Bacterial vaginosis [N76.0, B96.89] 02/02/2022 Spinal stenosis, lumbar region, without neuroge*02/24/2022 Cognitive impairment, mild, so stated [G31.84] 02/27/2022 Letter Text Encounter Status:Closed by RENATA GONZALEZ on 10/09/22 PROGRESS Observed: 09/16/2022 2:26 PM Status: COMPLETED Source: [facility] REPOSITORY HNO ID: [id number] Author: Jaimee Palomares PA-C Service: ? Author Type: Physician Living Supervisor Type: Progress Notes Filed: 09/16/2022 3:41 PM [...] care 05/15/2020 HOSPITAL/ER FOLLOW UP Which facility: [facility] Dates of visit: 05/10-05/13/2020 Preadmission evaluation: [...] of admission 05/01/2021 Date of discharge: Facility: [facility] 05/01/2021 presented to the emergency room with acute alcohol intoxication, initial alcohol level 7-8. Acknowledges over the last 5 months drinking 15 packs a day at 8% alcohol (marcin samaniego). Vital signs 96.6 F-78-18-111/73-98%. Appearance was no acute distress. WBC 7.9-Hgb 13.8-HCT 39 Encounter for support and coordination of transition of care 05/05/2022 05[facility]05[facility] with lightheadedness and multiple syncopal episodes one of them resulting in injury to her right foot. GERD (gastroesophageal reflux disease) Hyperglycemia Hypertension Lung abscess ([facility]) saw Néstor Li and Dr. Zarate. Major depression Mild protein-calorie malnutrition ([facility]) 08/26/2020 Obesity PE (pulmonary thromboembolism) ([facility]) PTSD (post-traumatic stress disorder) Snoring Tobacco use [...] 11/21/2015 Carpal tunnel decomp OVARIAN CYSTECTOMY UNI/BI 1997 left oophorectomy and 20# cyst PAST SURGICAL HISTORY OF 07/2012 Lumbar discectomy L3-L4 PAST SURGICAL HISTORY OF 09/2012 repeat lumbar surgery PAST SURGICAL HISTORY OF Right 12/2021 Wrist due to fracture (steel plate and 17 screws) SKIN GRAFT,SCALP,ARMS,LEGS 12/2013 bilateral posterior thigh autograft, fell in firepit TONSILLECTOMY AND ADENOIDECTOMY <AGE 10 1979 Social History Tobacco [...] Pain With Left-Sided Sciatica Pe (Pulmonary Thromboembolism) ([facility]) Hyperglycemia Stasis Edema Right Lumbar Radiculopathy Obesity, Class III, BMI >= 40 (morbid obesity) E66.01 Delusional Disorder (Hcc) Chronic Low Back Pain With Sciatica Abnormal Echocardiogram Chronic Left-Sided Low Back Pain With Sciatica Copd (Chronic Obstructive Pulmonary Disease) With Chronic Bronchitis ([facility]) Positive Urine Drug Screen Lumbar Spondylosis Cervical Spondylosis Without Myelopathy Other Chest Pain Stress Incontinence Chronic Active Hepatitis C ([facility]) History of Colonic Polyps Traumatic Closed Nondisp [...] kg (131 lb) SpO2 99% BMI 19.35 kg/m? Pleasant adult woman in no acute distress. [...] ROUT UR - PAIN PANEL, UR QUANT M Cici Palomares PA-C CNERNESTINA Observed: 09/16/2022 2:20 PM Status: COMPLETED Source: [facility] REPOSITORY Office Visit (FAMPWS) BRITTONMARILUZ ([id number]) 1970 F Date Time Provider Department 09/16/22 2:20 PM Jaimee PALOMARES During your visit today, we recorded the following information about you: Pulse Respiration Blood pressure Weight 92/minute 18/minute 170/88 59.4 kg M Cici Palomares PA-C 09/16/2022 3:41 PM Signed 52 year old female with c/o here [...] care 05/15/2020 HOSPITAL/ER FOLLOW UP Which facility: [facility] Dates of visit: 05/10-05/13/2020 Preadmission evaluation: [...] of admission 05/01/2021 Date of discharge: Facility: [facility] 05/01/2021 presented to the emergency room with acute alcohol intoxication, initial alcohol level 7-8. Acknowledges over the last 5 months drinking 15 packs a day at 8% alcohol (marcin samaniego). Vital signs 96.6 F-78-18-111/73-98%. Appearance was no acute distress. WBC 7.9-Hgb 13.8-HCT 39 Encounter for support and coordination of transition of care 05/05/2022 05/05/2022 patient called squad, transported to [facility] with lightheadedness and multiple syncopal [...] autograft, fell in firepit TONSILLECTOMY AND ADENOIDECTOMY <AGE 10 1979 Social History Tobacco [...] Pain With Left-Sided Sciatica Pe (Pulmonary Thromboembolism) ([facility]) Hyperglycemia Stasis Edema Right Lumbar Radiculopathy Obesity, Class III, BMI >= 40 (morbid obesity) E66.01 Delusional Disorder (Hcc) Chronic Low Back Pain With Sciatica Abnormal Echocardiogram Chronic Left-Sided Low Back Pain With Sciatica Copd (Chronic Obstructive Pulmonary Disease) With Chronic Bronchitis ([facility]) Positive Urine Drug Screen Lumbar Spondylosis Cervical Spondylosis Without Myelopathy Other Chest Pain Stress Incontinence Chronic Active Hepatitis C ([facility]) History of Colonic Polyps Traumatic Closed Nondisp [...] kg (131 lb) SpO2 99% BMI 19.35 kg/m? Pleasant adult woman in no acute distress. [...] ROUT UR - PAIN PANEL, UR QUANT M Cici Palomares PA-C Allergies As of Date: 09/16/2022 Noted Allergy Reaction FENTANYL 08/22/2015 14 - Other: See Comments Comments: PATCH ONLY. Respiratory distress due to rapid absorption. CHANTIX (VARENICLINE) 09/30/2016 5 - Intolerance Comments: hallucinations Date Reviewed: 08/26/2022 Reviewed by: Urvashi Hughes APRN.APPLIED COMPUTER SCIENCE PROFESSOR - Fully Assessed Primary Visit Diagnosis:Chronic left-sided low back pain with sciatica, sciatica laterality unspecified [M54.40, G89.29] Other Visit Diagnoses:DDD (degenerative disc disease), lumbar [M51.36] Lumbar spondylosis [M47.816] Gait instability [R26.81] Weight loss [R63.4] Order(s):WALKER ROLLATOR SEAT WITH 6 WHEELS - REDFor daily use. M54.40, G89.29 Chronic left-sided low back pain with sciatica, sciatica laterality unspecified (primary encounter diagnosis) M51.36 DDD (degenerative disc disease), lumbar M47.816 Lumbar spondylosis R26.81 Gait instabilityDisp: 1 EachRfl: 0 CANE, ADJUSTABLE [[id number]] Order #: [id number] TOX SCREEN ROUT UR [SQUTOX2] Order #: [id number] FUTURE PAIN PANEL, UR QUANT [SQUQNTPP] Order #: [id number] FUTURE Prescriptions as of 09/16/2022 - OLANZapine (ZYPREXA) 5 mg tablet Take 1 tablet by mouth once daily. - buPROPion XL (WELLBUTRIN XL) 150 mg 24 hr tablet Take 1 tablet by mouth once daily. - traZODone (DESYREL) 150 mg tablet Take 1 tablet by mouth at bedtime as needed. - WALKER ROLLATOR SEAT WITH 6 WHEELS - RED For daily use. M54.40, G89.29 Chronic left-sided low back pain with sciatica, sciatica laterality unspecified (primary encounter diagnosis) M51.36 DDD (degenerative disc disease), lumbar M47.816 Lumbar spondylosis R26.81 Gait instability - ibuprofen (MOTRIN) 800 mg tablet Take 1 tablet by mouth every 8 hours as needed for pain. Take with food. - Cholecalciferol, Vitamin D3, (VITAMIN D) 25 mcg (1,000 unit) cap Take 1 capsule by mouth once daily. - omeprazole (PRILOSEC) 20 mg capsule TAKE 1 CAPSULE BY MOUTH DAILY - albuterol HFA (VENTOLIN HFA) 90 mcg/actuation inhaler Inhale 2 Puffs as instructed every 4 hours as needed for wheezing/shortness of breath. - baclofen (LIORESAL) 10 mg tablet Take 1 tablet by mouth twice daily as needed. - atorvastatin (LIPITOR) 40 mg tablet Take 1 tablet by mouth daily at bedtime. - pregabalin (LYRICA) 150 mg capsule Take one pill three times per day Do not start before July 26, 2022. - mirabegron (MYRBETRIQ) 25 mg Tb24 Take 1 tablet by mouth once daily. - thiamine (VITAMIN B1) 100 mg tablet Take 1 tablet by mouth once daily. - tiotropium bromide (SPIRIVA RESPIMAT) 2.5 mcg/actuation inhaler Inhale 2 Puffs as instructed once daily. - ferrous sulfate 325 mg (65 mg iron) tablet Take 1 tablet by mouth twice daily. - budesonide-formoterol (SYMBICORT) 160-4.5 mcg/actuation inhaler Inhale 2 Puffs as instructed twice daily. - L. acidophilus-L. rhamnosus (FLORAJEN WOMEN) 15 billion cell cap Take 1 capsule by mouth once daily. - cyanocobalamin (VITAMIN B-12) 1,000 mcg tab Take 1 tablet by mouth once daily. - lisinopril (ZESTRIL, PRINIVIL) 20 mg tablet Take 1 tablet by mouth once daily. - VITAMIN C 500 mg tablet - oxybutynin ER (DITROPAN XL) 10 mg 24 hr tablet Take 1 tablet by mouth once daily. - albuterol (PROVENTIL) 2.5 mg /3 mL (0.083 %) nebulizer solution Use 3 mL via nebulizer every 4 hours as needed for wheezing/shortness of breath. Use over 5-15minutes. - Nebulizers Use as directed. - levothyroxine (SYNTHROID) 25 mcg tablet Take 25 mcg by mouth daily before breakfast. - COMPOUNDED PRESCRIPTION Standard size Rollator Walker #1 Dx Large Blood Pressure Cuff #1 M51.36 DDD (degenerative disc disease), lumbar (primary encounter diagnosis) I10 Essential hypertension - COMPOUNDED PRESCRIPTION ADJUSTABLE CANE DX M51.36 Problem List As Of Date 09/16/2022 Noted Resolved Back pain [M54.9] DDD (degenerative disc disease), lumbar [M51.36] Emphysema of lung (HCC) [J43.9] Tobacco use disorder [F17.200] Hypertension [I10] GERD (gastroesophageal reflux disease) [K21.9] Carpal tunnel syndrome, bilateral [G56.03] 09/23/2015 Obesity [E66.9] Anemia [D64.9] 11/04/2015 Radiculopathy, lumbar region [M54.16] 11/05/2015 Alcohol abuse [F10.10] Chronic midline low back pain with left-sided s*04/21/2016 PE (pulmonary thromboembolism) (HCC) [I26.99] Hyperglycemia [R73.9] 07/14/2016 Stasis edema [I87.309] 07/28/2016 Right lumbar radiculopathy [M54.16] 08/11/2016 Obesity, Class III, BMI >= 40 (morbid obesity) *09/29/2016 Delusional disorder (HCC) [F22] 10/14/2016 Chronic low back pain with sciatica [M54.40, G8*06/07/2017 Abnormal echocardiogram [R93.1] 08/18/2017 Chronic left-sided low back pain with sciatica *11/29/2017 COPD (chronic obstructive pulmonary disease) wi*03/13/2018 Positive urine drug screen [R82.5] 08/16/2018 Encounter for support and coordination of trans*05/15/2020 05/02/2021 Mild protein-calorie malnutrition (HCC) [E44.1] 08/26/2020 11/12/2021 Lumbar spondylosis [M47.816] 02/26/2021 Cervical spondylosis without myelopathy [M47.81*02/26/2021 Encounter for support and coordination of trans*05/02/2021 07/23/2021 Other chest pain [R07.89] 10/21/2021 Stress incontinence [N39.3] 11/12/2021 Chronic active hepatitis C (HCC) [B18.2] 11/23/2021 History of colonic polyps [Z86.010] 11/23/2021 Traumatic closed nondisp torus fracture of dist*01/31/2022 Bacterial vaginosis [N76.0, B96.89] 02/02/2022 Spinal stenosis, lumbar region, without neuroge*02/24/2022 Cognitive impairment, mild, so stated [G31.84] 02/27/2022 Prescriptions ordered this encounter Disp Refills Start End WALKER ROLLATOR SEAT WITH 6 WHEELS * 1 Ea* 0 09/16/2022 Class: Print RX Sig: For daily use. M54.40, G89.29 Chronic left-sided low back pain with sciatica, sciatica laterality unspecified (primary encounter diagnosis) M51.36 DDD (degenerative disc disease), lumbar M47.816 Lumbar spondylosis R26.81 Gait instability Medications Discontinued During This Encounter Prescriptions - benztropine (COGENTIN) 0.5 mg tablet (Discontinued) Take 0.5 mg by mouth daily at bedtime. - buPROPion SR (ZYBAN SR; WELLBUTRIN SR) 150 mg 12 hr tablet (Discontinued) - FLUoxetine (PROZAC) 20 mg capsule (Discontinued) Take 20 mg by mouth once daily. - QUEtiapine (SEROQUEL) 300 mg tablet (Discontinued) Reported on 09/16/2022 Follow-up and Disposition History for Encounter Date Provider Department Center 09/16/2022 [id number] PALOMARES FAMPWS [facility] Encounter Status:Closed by Jaimee PALOMARES on 09/16/22 [facility] US BREAST LTD LT Observed: 3 2:43 PM Status: F Source: [facility] REPOSITORY * * *Final Report* * * DATE OF EXAM: Sep 01 2022 2:43PM WRU [id number] - [email or web address] US BREAST LTD LT / PROCEDURE REASON: Breast pain * * * * Physician Interpretation * * * * #[id number] - [facility] US BREAST LTD LT LIMITED ULTRASOUND OF LEFT BREAST: 09/01/2022 HISTORY: Breast Pain. RESULT: No prior exams were available for comparison. Color flow and real-time ultrasound of the left breast 2 o'clock region were performed. Jaramillo scale images of the real-time examination were reviewed. IMPRESSION: NEGATIVE There is no sonographic evidence of malignancy. There is no abnormality seen in the left breast to correspond with the palpable abnormality, however, clinical correlation is recommended. Return to annual mammogram screening schedule is recommended. Billie faustin/gabby:09/01/2022 14:45:20 Owner/Operator(s): Sherry Vargas [facility] Ultrasound BI-RADS: 1 Negative Multiple national specialty organizations have released breast cancer screening guidelines for women at average risk for developing breast cancer - guidelines that are based on both evidence and opinion, yet differ on when to start and how often to screen for breast cancer. With representation from Breast Imaging, Internal Medicine, Women's Health, Family Medicine, and Medical/Surgical Oncology, the [facility] has carefully reviewed the data and reached the following consensus: 1) All women should engage in shared decision-making with their providers to decide when to start and how often to screen; 2) All women should have the opportunity to start screening mammography at age 40; 3) For women ages 45-55, we recommend annual screening mammograms; 4) For women ages 55 and over, we support both the transition from an annual to a biennial interval if this aligns more with patient's values and preferences, or continuation with annual screening; 5) All women should discuss with their providers when to stop screening mammograms. Maintenance Of Way Superintendent: Gabby Transcribe Date/Time: Sep 01 2022 2:36P Dictated by : BILLIE ISRAEL MD This examination was interpreted and the report reviewed and electronically signed by: BILLIE ISRAEL MD on Sep 01 2022 2:45PM EST [id number] Observed: 09/01/2022 2:30 PM Status: COMPLETED Source: [facility] REPOSITORY HNO ID: [id number] Author: Jenifer Escalante RDMS Service: ? Author Type: Inside Phone Sales Type: Progress Notes Filed: 09/01/2022 2:51 PM [...] RDMS RVT September 01, 2022 2:51 PM SHILOH DIAG W JASPER KAMRAN Observed: 09/01/2022 2:16 PM Status: F Source: [facility] REPOSITORY * * *Final Report* * * DATE OF EXAM: Sep 01 2022 2:16PM WRW [id number] - SHILOH DIAG W JASPER KAMRAN / PROCEDURE REASON: Breast pain * * * * Physician Interpretation * * * * RESULT: #[id number] - SHILOH DIAG W JASPER KAMRAN BILATERAL DIGITAL DIAGNOSTIC MAMMOGRAM TOMOSYNTHESIS WITH CAD: 09/01/2022 HISTORY: Breast Pain / Bilateral Diagnostic Mammogram/ Left breast lump /priors available for comparison. RESULT: TECHNIQUE: The study was acquired using full field digital technology and interpreted from soft copy. Digital Breast Tomosynthesis (DBT) images were obtained and used to assist in the interpretation of this examination. Current study was also evaluated with a Computer Aided Detection (CAD). Comparison is made to exams dated: 11/10/2021 mammogram, 10/01/2021 mammogram, and 05/28/2019 mammogram - [facility]. The tissue of both breasts is heterogeneously dense. This may lower the sensitivity of mammography. No significant masses, calcifications, or other findings are seen in either breast. IMPRESSION: INCOMPLETE: NEEDS ADDITIONAL IMAGING EVALUATION There is no abnormality seen in the left breast to correspond with the palpable abnormality, however, ultrasound is recommended. Billie faustin/gabby:09/01/2022 14:32:05 Owner/Operator(s): Urvashi Rodriguez [facility] Mammogram BI-RADS: 0 Incomplete: needs additional imaging evaluation Multiple national specialty organizations have released breast cancer screening guidelines for women at average risk for developing breast cancer - guidelines that are based on both evidence and opinion, yet differ on when to start and how often to screen for breast cancer. With representation from Breast Imaging, Internal Medicine, Women's Health, Family Medicine, and Medical/Surgical Oncology, the [facility] has carefully reviewed the data and reached the following consensus: 1) All women should engage in shared decision-making with their providers to decide when to start and how often to screen; 2) All women should have the opportunity to start screening mammography at age 40; 3) For women ages 45-55, we recommend annual screening mammograms; 4) For women ages 55 and over, we support both the transition from an annual to a biennial interval if this aligns more with patient's values and preferences, or continuation with annual screening; 5) All women should discuss with their providers when to stop screening mammograms. Maintenance Of Way Superintendent: Gabby Transcribe Date/Time: Sep 01 2022 2:04P Dictated by: BILLIE ISRAEL MD This examination was interpreted and the report reviewed and electronically signed by: BILLIE ISRAEL MD on Sep 01 2022 2:32PM EST [id number] Observed: 09/01/2022 2:00 PM Status: COMPLETED Source: [facility] REPOSITORY HNO ID: [id number] Author: RT Angela(Misty) Service: ? Author Type: Technologist Type: Progress [...] RT Angela(R) September 01, 2022 1:58 PM CNPN Observed: 09/01/2022 12:00 AM Status: COMPLETED Source: [facility] REPOSITORY Telephone (FAMPWS) BRITTONMARILUZ ([id number]) 1970 F Date Time Provider Department 09/01/22 Jaimee PALOMARES During your visit today, we recorded the following information about you: Siddharth Mascorro LPN 09/01/2022 4:44 PM Signed ----- Message from Memo Huber MD sent at 09/01/2022 2:49 PM EDT ----- Let her know was negative. If continues to have issues, let us know. Siddharth Ludwin FELIPE 09/01/2022 4:47 PM Signed TC to pt, notified of results/provider response. She states she is still having issues daily with that breast. She has an appt with Faustino on Tuesday (09/03) so she will discuss with him at appt. Siddharth Mascorro LPN Allergies As of Date: 09/01/2022 Noted Allergy Reaction FENTANYL 08/22/2015 14 - Other: See Comments Comments: PATCH ONLY. Respiratory distress due to rapid absorption. CHANTIX (VARENICLINE) 09/30/2016 5 - Intolerance Comments: hallucinations Date Reviewed: 08/26/2022 Reviewed by: Urvashi Hughes APRN.APPLIED COMPUTER SCIENCE PROFESSOR - Fully Assessed Reason for Visit: Results [95] Prescriptions as of 09/01/2022 - ibuprofen (MOTRIN) 800 mg tablet Take 1 tablet by mouth every 8 hours as needed for pain. Take with food. - Cholecalciferol, Vitamin D3, (VITAMIN D) 25 mcg (1,000 unit) cap Take 1 capsule by mouth once daily. - omeprazole (PRILOSEC) 20 mg capsule TAKE 1 CAPSULE BY MOUTH DAILY - albuterol HFA (VENTOLIN HFA) 90 mcg/actuation inhaler Inhale 2 Puffs as instructed every 4 hours as needed for wheezing/shortness of breath. - baclofen (LIORESAL) 10 mg tablet Take 1 tablet by mouth twice daily as needed. - atorvastatin (LIPITOR) 40 mg tablet Take 1 tablet by mouth daily at bedtime. - pregabalin (LYRICA) 150 mg capsule Take one pill three times per day Do not start before July 26, 2022. - mirabegron (MYRBETRIQ) 25 mg Tb24 Take 1 tablet by mouth once daily. - thiamine (VITAMIN B1) 100 mg tablet Take 1 tablet by mouth once daily. - tiotropium bromide (SPIRIVA RESPIMAT) 2.5 mcg/actuation inhaler Inhale 2 Puffs as instructed once daily. - ferrous sulfate 325 mg (65 mg iron) tablet Take 1 tablet by mouth twice daily. - budesonide-formoterol (SYMBICORT) 160-4.5 mcg/actuation inhaler Inhale 2 Puffs as instructed twice daily. - L. acidophilus-L. rhamnosus (FLORAJEN WOMEN) 15 billion cell cap Take 1 capsule by mouth once daily. - QUEtiapine (SEROQUEL) 300 mg tablet Take 300 mg by mouth once daily. - cyanocobalamin (VITAMIN B-12) 1,000 mcg tab Take 1 tablet by mouth once daily. - lisinopril (ZESTRIL, PRINIVIL) 20 mg tablet Take 1 tablet by mouth once daily. - VITAMIN C 500 mg tablet - oxybutynin ER (DITROPAN XL) 10 mg 24 hr tablet Take 1 tablet by mouth once daily. - albuterol (PROVENTIL) 2.5 mg /3 mL (0.083 %) nebulizer solution Use 3 mL via nebulizer every 4 hours as needed for wheezing/shortness of breath. Use over 5-15minutes. - buPROPion SR (ZYBAN SR; WELLBUTRIN SR) 150 mg 12 hr tablet - Nebulizers Use as directed. - levothyroxine (SYNTHROID) 25 mcg tablet Take 25 mcg by mouth daily before breakfast. - FLUoxetine (PROZAC) 20 mg capsule Take 20 mg by mouth once daily. - COMPOUNDED PRESCRIPTION Standard size Rollator Walker #1 Dx Large Blood Pressure Cuff #1 M51.36 DDD (degenerative disc disease), lumbar (primary encounter diagnosis) I10 Essential hypertension - benztropine (COGENTIN) 0.5 mg tablet Take 0.5 mg by mouth daily at bedtime. - COMPOUNDED PRESCRIPTION ADJUSTABLE CANE DX M51.36 Problem List As Of Date 09/01/2022 Noted Resolved Back pain [M54.9] DDD (degenerative disc disease), lumbar [M51.36] Emphysema of lung (HCC) [J43.9] Tobacco use disorder [F17.200] Hypertension [I10] GERD (gastroesophageal reflux disease) [K21.9] Carpal tunnel syndrome, bilateral [G56.03] 09/23/2015 Obesity [E66.9] Anemia [D64.9] 11/04/2015 Radiculopathy, lumbar region [M54.16] 11/05/2015 Alcohol abuse [F10.10] Chronic midline low back pain with left-sided s*04/21/2016 PE (pulmonary thromboembolism) (HCC) [I26.99] Hyperglycemia [R73.9] 07/14/2016 Stasis edema [I87.309] 07/28/2016 Right lumbar radiculopathy [M54.16] 08/11/2016 Obesity, Class III, BMI >= 40 (morbid obesity) *09/29/2016 Delusional disorder (HCC) [F22] 10/14/2016 Chronic low back pain with sciatica [M54.40, G8*06/07/2017 Abnormal echocardiogram [R93.1] 08/18/2017 Chronic left-sided low back pain with sciatica *11/29/2017 COPD (chronic obstructive pulmonary disease) wi*03/13/2018 Positive urine drug screen [R82.5] 08/16/2018 Encounter for support and coordination of trans*05/15/2020 05/02/2021 Mild protein-calorie malnutrition (HCC) [E44.1] 08/26/2020 11/12/2021 Lumbar spondylosis [M47.816] 02/26/2021 Cervical spondylosis without myelopathy [M47.81*02/26/2021 Encounter for support and coordination of trans*05/02/2021 07/23/2021 Other chest pain [R07.89] 10/21/2021 Stress incontinence [N39.3] 11/12/2021 Chronic active hepatitis C (HCC) [B18.2] 11/23/2021 History of colonic polyps [Z86.010] 11/23/2021 Traumatic closed nondisp torus fracture of dist*01/31/2022 Bacterial vaginosis [N76.0, B96.89] 02/02/2022 Spinal stenosis, lumbar region, without neuroge*02/24/2022 Cognitive impairment, mild, so stated [G31.84] 02/27/2022 Encounter Status:Closed by SIDDHARTH MASCORRO LPN on 09/01/22 CNOV Observed: 08/26/2022 10:00 AM Status: COMPLETED Source: [facility] REPOSITORY Office Visit (NEMOWS) MARILUZ GARCIA ([id number]) 1970 F Date Time Provider Department 08/26/22 10:00 AM URVASHI HUGHES During your visit today, we recorded the following information about you: Temperature Pulse Respiration Blood pressure 97.8 degrees 74/minute 18/minute 129/96 Weight 61.2 kg Urvashi Hughes APRN.APPLIED COMPUTER SCIENCE PROFESSOR 08/26/2022 1:20 PM Signed [facility] [place] Follow-up Visit Follow-up note August 26, 2022 [...] day by day. Feels both short and fpc memory have changed. States she can remember [...] Words, up to 2 trials: Face, Velvet, Anglican, Yudith, Red (no points) 3/5 first try, [...] 1 error) (0/1) Serial subtraction by 7: [id number] (3 points for correct 4 or 5; 2 points for 2 or 3 correct; 1 point for 1 correct) [id number] (3/3) Language: repeat: I only know that [...] (2/2) Delayed recall: recall words: face, velvet, yazdanism, yudith, red (0-5) (5/5) Orientation: date(1), month(1), [...] care 05/15/2020 HOSPITAL/ER FOLLOW UP Which facility: [facility] Dates of visit: 05/10-05/13/2020 Preadmission evaluation: [...] of admission 05/01/2021 Date of discharge: Facility: [facility] 05/01/2021 presented to the emergency room with acute alcohol intoxication, initial alcohol level 7-8. Acknowledges over the last 5 months drinking 15 packs a day at 8% alcohol (marcin samaniego). Vital signs 96.6 F-78-18-111/73-98%. Appearance was no acute distress. WBC 7.9-Hgb 13.8-HCT 39 Encounter for support and coordination of transition of care 05/05/2022 05/05/2022 patient called squad, transported to [facility] with lightheadedness and multiple syncopal episodes one of them resulting in injury to her right foot. GERD (gastroesophageal reflux disease) Hyperglycemia Hypertension Lung abscess (HCC) saw Néstor Li and Dr. Zarate. Major depression Mild protein-calorie malnutrition (HCC) 08/26/2020 Obesity PE (pulmonary thromboembolism) ([facility]) PTSD (post-traumatic stress disorder) Snoring Tobacco use [...] autograft, fell in firepit TONSILLECTOMY AND ADENOIDECTOMY <AGE 10 1979 Current Outpatient Medications [...] 129/96 Pulse: 74 Resp: 18 Temp: 36.6 ?C (97.8 ?F) TempSrc: Right Tympanic SpO2: 97% Weight: 61.2 [...] with imbalance. Labs/studies: Component Latest Ref Rng AND Units 03/09/2022 05/07/2022 WBC 3.70 - 11.00 [...] Abs Lymph 1.00 - 4.00 k/uL 1.75 [place]% % 9.1 Abs [place] <0.87 k/uL 0.67 Eosin% % 4.1 Abs [...] - 18 mmol/L 8 (L) eGFR >=60 mL/min/1.73mA? 109 Lead <=4.9 ug/dL <2.0 Mercury Blood [...] abuse, in remission F19.10 Polysubstance abuse ([facility]) Z79.899 Polypharmacy Comment: Patient previously seen for [...] which included preparing to see the patient, [id number] patient care, completing clinical documentation, obtaining and/or reviewing separately obtained history, performing a medically appropriate examination, and counseling and educating the patient/family/caregiver. Referring Provider: MEMO LEAHY JR [[id number]] Allergies As of Date: 08/26/2022 Noted Allergy Reaction FENTANYL 08/22/2015 14 - Other: See Comments Comments: PATCH ONLY. Respiratory distress due to rapid absorption. CHANTIX (VARENICLINE) 09/30/2016 5 - Intolerance Comments: hallucinations Date Reviewed: 08/26/2022 Reviewed by: Urvashi Hughes APRN.APPLIED COMPUTER SCIENCE PROFESSOR - Fully Assessed Reason for Visit: Follow Up [171] Primary Visit Diagnosis:Cognitive impairment [R41.89] Other Visit Diagnoses:Alcohol abuse, in remission [F10.11] Polysubstance abuse (HCC) [F19.10] Polypharmacy [Z79.899] Prescriptions as of 08/26/2022 - ibuprofen (MOTRIN) 800 mg tablet Take 1 tablet by mouth every 8 hours as needed for pain. Take with food. - Cholecalciferol, Vitamin D3, (VITAMIN D) 25 mcg (1,000 unit) cap Take 1 capsule by mouth once daily. - omeprazole (PRILOSEC) 20 mg capsule TAKE 1 CAPSULE BY MOUTH DAILY - albuterol HFA (VENTOLIN HFA) 90 mcg/actuation inhaler Inhale 2 Puffs as instructed every 4 hours as needed for wheezing/shortness of breath. - baclofen (LIORESAL) 10 mg tablet Take 1 tablet by mouth twice daily as needed. - atorvastatin (LIPITOR) 40 mg tablet Take 1 tablet by mouth daily at bedtime. - pregabalin (LYRICA) 150 mg capsule Take one pill three times per day Do not start before July 26, 2022. - mirabegron (MYRBETRIQ) 25 mg Tb24 Take 1 tablet by mouth once daily. - thiamine (VITAMIN B1) 100 mg tablet Take 1 tablet by mouth once daily. - tiotropium bromide (SPIRIVA RESPIMAT) 2.5 mcg/actuation inhaler Inhale 2 Puffs as instructed once daily. - ferrous sulfate 325 mg (65 mg iron) tablet Take 1 tablet by mouth twice daily. - budesonide-formoterol (SYMBICORT) 160-4.5 mcg/actuation inhaler Inhale 2 Puffs as instructed twice daily. - L. acidophilus-L. rhamnosus (FLORAJEN WOMEN) 15 billion cell cap Take 1 capsule by mouth once daily. - QUEtiapine (SEROQUEL) 300 mg tablet Take 300 mg by mouth once daily. - cyanocobalamin (VITAMIN B-12) 1,000 mcg tab Take 1 tablet by mouth once daily. - lisinopril (ZESTRIL, PRINIVIL) 20 mg tablet Take 1 tablet by mouth once daily. - VITAMIN C 500 mg tablet - oxybutynin ER (DITROPAN XL) 10 mg 24 hr tablet Take 1 tablet by mouth once daily. - albuterol (PROVENTIL) 2.5 mg /3 mL (0.083 %) nebulizer solution Use 3 mL via nebulizer every 4 hours as needed for wheezing/shortness of breath. Use over 5-15minutes. - buPROPion SR (ZYBAN SR; WELLBUTRIN SR) 150 mg 12 hr tablet - Nebulizers Use as directed. - levothyroxine (SYNTHROID) 25 mcg tablet Take 25 mcg by mouth daily before breakfast. - FLUoxetine (PROZAC) 20 mg capsule Take 20 mg by mouth once daily. - COMPOUNDED PRESCRIPTION Standard size Rollator Walker #1 Dx Large Blood Pressure Cuff #1 M51.36 DDD (degenerative disc disease), lumbar (primary encounter diagnosis) I10 Essential hypertension - benztropine (COGENTIN) 0.5 mg tablet Take 0.5 mg by mouth daily at bedtime. - COMPOUNDED PRESCRIPTION ADJUSTABLE CANE DX M51.36 Problem List As Of Date 08/26/2022 Noted Resolved Back pain [M54.9] DDD (degenerative disc disease), lumbar [M51.36] Emphysema of lung (HCC) [J43.9] Tobacco use disorder [F17.200] Hypertension [I10] GERD (gastroesophageal reflux disease) [K21.9] Carpal tunnel syndrome, bilateral [G56.03] 09/23/2015 Obesity [E66.9] Anemia [D64.9] 11/04/2015 Radiculopathy, lumbar region [M54.16] 11/05/2015 Alcohol abuse [F10.10] Chronic midline low back pain with left-sided s*04/21/2016 PE (pulmonary thromboembolism) (HCC) [I26.99] Hyperglycemia [R73.9] 07/14/2016 Stasis edema [I87.309] 07/28/2016 Right lumbar radiculopathy [M54.16] 08/11/2016 Obesity, Class III, BMI >= 40 (morbid obesity) *09/29/2016 Delusional disorder (HCC) [F22] 10/14/2016 Chronic low back pain with sciatica [M54.40, G8*06/07/2017 Abnormal echocardiogram [R93.1] 08/18/2017 Chronic left-sided low back pain with sciatica *11/29/2017 COPD (chronic obstructive pulmonary disease) wi*03/13/2018 Positive urine drug screen [R82.5] 08/16/2018 Encounter for support and coordination of trans*05/15/2020 05/02/2021 Mild protein-calorie malnutrition (HCC) [E44.1] 08/26/2020 11/12/2021 Lumbar spondylosis [M47.816] 02/26/2021 Cervical spondylosis without myelopathy [M47.81*02/26/2021 Encounter for support and coordination of trans*05/02/2021 07/23/2021 Other chest pain [R07.89] 10/21/2021 Stress incontinence [N39.3] 11/12/2021 Chronic active hepatitis C (HCC) [B18.2] 11/23/2021 History of colonic polyps [Z86.010] 11/23/2021 Traumatic closed nondisp torus fracture of dist*01/31/2022 Bacterial vaginosis [N76.0, B96.89] 02/02/2022 Spinal stenosis, lumbar region, without neuroge*02/24/2022 Cognitive impairment, mild, so stated [G31.84] 02/27/2022 Disposition: Return in about 3 months (around 11/26/2022). Follow-up and Disposition History for Encounter Date Provider Department Center 08/26/2022 [id number], [facility] Encounter Status:Closed by URVASHI HUGHES on 08/26/22 PROGRESS Observed: 08/26/2022 10:00 AM Status: COMPLETED Source: [facility] REPOSITORY HNO ID: [id number] Author: Urvashi Hughes APRN.APPLIED COMPUTER SCIENCE PROFESSOR Service: ? Author Type: Nurse Practitioner Type: Progress Notes Filed: 08/26/2022 1:20 PM Note Text: [facility] [place] Follow-up Visit Follow-up note August 26, 2022 [...] by day. Feels both short and termite control representative memory have changed. States she can remember [...] Words, up to 2 trials: Face, Velvet, Anglican, Yudith, Red (no points) 3/5 first try, [...] 1 error) (0/1) Serial subtraction by 7: [id number] (3 points for correct 4 or 5; 2 points for 2 or 3 correct; 1 point for 1 correct) [id number] (3/3) Language: repeat: I only know that [...] (2/2) Delayed recall: recall words: face, velvet, yazdanism, yudith, red (0-5) (55) Orientation: date(1), month(1), year(1), day(1), place(1), city(1) [...] care 05/15/2020 HOSPITAL/ER FOLLOW UP Which facility: [facility] Dates of visit: 05/10-05/13/2020 Preadmission evaluation: [...] of admission 05/01/2021 Date of discharge: Facility: [facility] 05/01/2021 presented to the emergency room with acute alcohol intoxication, initial alcohol level 7-8. Acknowledges over the last 5 months drinking 15 packs a day at 8% alcohol (natty daddy). Vital signs 96.6 F-78-18-111/73-98%. Appearance was no acute distress. WBC 7.9-Hgb 13.8-HCT 39 Encounter for support and coordination of transition of care 05/05/2022 05/05/2022 patient called squad, transported to [facility] with lightheadedness and multiple syncopal episodes one of them resulting in injury to her right foot. GERD (gastroesophageal reflux disease) Hyperglycemia Hypertension Lung abscess ([facility]) saw Néstor Li and Dr. Zarate. Major depression Mild protein-calorie malnutrition (HCC) 08/26/2020 Obesity PE (pulmonary thromboembolism) ([facility]) PTSD (post-traumatic stress disorder) Snoring Tobacco use [...] autograft, fell in firepit TONSILLECTOMY AND ADENOIDECTOMY <AGE 10 1979 Current Outpatient Medications [...] 129/96 Pulse: 74 Resp: 18 Temp: 36.6 ?C (97.8 ?F) TempSrc: Right Tympanic SpO2: 97% Weight: 61.2 [...] with imbalance. Labs/studies: Component Latest Ref Rng AND Units 03/09/2022 05/07/2022 WBC 3.70 - 11.00 [...] Abs Lymph 1.00 - 4.00 k/uL 1.75 [place]% % 9.1 Abs [place] <0.87 k/uL 0.67 Eosin% % 4.1 Abs [...] - 18 mmol/L 8 (L) eGFR >=60 mL/min/1.73mA? 109 Lead <=4.9 ug/dL <2.0 Mercury Blood [...] consider formal neurocognitive testing. Urvashi Hughes APRN.ALYSSA Torres spent a total of 45 minutes on the date of the service which included preparing to see the patient, [id number] patient care, completing clinical documentation, obtaining and/or reviewing separately obtained history, performing a medically appropriate examination, and counseling and educating the patient/family/caregiver. HARPREET Observed: 08/26/2022 12:00 AM Status: COMPLETED Source: [facility] REPOSITORY Telephone (NEMOWS) MARILUZ GARCIA ([id number]) 1970 F Date Time Provider Department 08/26/22 URVASHI HUGHES During your visit today, we recorded the following information about you: Jacqui Rudolph MA 08/26/2022 12:20 PM Addendum TC to SANDRA Alexandra to have patient call the office back. Patient originally scheduled for 6 months f/u (please keep scheduled at this time) however per Urvashi Hughes please assist patient with scheduling a 3 month follow up too. KRAIG Gregorio LPN 08/27/2022 2:20 PM Signed Patient returned call and went over notes below and patient is asking why did P 3 ARMAMENT/ORDNANCE IMA TECHNICIAN change her mind and now wants her back in 3 months? She said was told 6 months before she left her appt yesterday. Jacqui Rudolph MA 08/27/2022 3:20 PM Signed Spoke to patient AND advised provider just wanted to have a routine f/u in 3 months per her request AND will decide if the 6 months appt at that time is necessary. Patient verbalized understanding of instructions. Scheduled with LISETTE 11/25 @ 145PM. Jacqui Rudolph MA Allergies As of Date: 08/26/2022 Noted Allergy Reaction FENTANYL 08/22/2015 14 - Other: See Comments Comments: PATCH ONLY. Respiratory distress due to rapid absorption. CHANTIX (VARENICLINE) 09/30/2016 5 - Intolerance Comments: hallucinations Date Reviewed: 08/26/2022 Reviewed by: Urvashi Hughes APRN.APPLIED COMPUTER SCIENCE PROFESSOR - Fully Assessed Reason for Visit: Appointment [186] Prescriptions as of 08/27/2022 - ibuprofen (MOTRIN) 800 mg tablet Take 1 tablet by mouth every 8 hours as needed for pain. Take with food. - Cholecalciferol, Vitamin D3, (VITAMIN D) 25 mcg (1,000 unit) cap Take 1 capsule by mouth once daily. - omeprazole (PRILOSEC) 20 mg capsule TAKE 1 CAPSULE BY MOUTH DAILY - albuterol HFA (VENTOLIN HFA) 90 mcg/actuation inhaler Inhale 2 Puffs as instructed every 4 hours as needed for wheezing/shortness of breath. - baclofen (LIORESAL) 10 mg tablet Take 1 tablet by mouth twice daily as needed. - atorvastatin (LIPITOR) 40 mg tablet Take 1 tablet by mouth daily at bedtime. - pregabalin (LYRICA) 150 mg capsule Take one pill three times per day Do not start before July 26, 2022. - mirabegron (MYRBETRIQ) 25 mg Tb24 Take 1 tablet by mouth once daily. - thiamine (VITAMIN B1) 100 mg tablet Take 1 tablet by mouth once daily. - tiotropium bromide (SPIRIVA RESPIMAT) 2.5 mcg/actuation inhaler Inhale 2 Puffs as instructed once daily. - ferrous sulfate 325 mg (65 mg iron) tablet Take 1 tablet by mouth twice daily. - budesonide-formoterol (SYMBICORT) 160-4.5 mcg/actuation inhaler Inhale 2 Puffs as instructed twice daily. - L. acidophilus-L. rhamnosus (FLORAJEN WOMEN) 15 billion cell cap Take 1 capsule by mouth once daily. - QUEtiapine (SEROQUEL) 300 mg tablet Take 300 mg by mouth once daily. - cyanocobalamin (VITAMIN B-12) 1,000 mcg tab Take 1 tablet by mouth once daily. - lisinopril (ZESTRIL, PRINIVIL) 20 mg tablet Take 1 tablet by mouth once daily. - VITAMIN C 500 mg tablet - oxybutynin ER (DITROPAN XL) 10 mg 24 hr tablet Take 1 tablet by mouth once daily. - albuterol (PROVENTIL) 2.5 mg /3 mL (0.083 %) nebulizer solution Use 3 mL via nebulizer every 4 hours as needed for wheezing/shortness of breath. Use over 5-15minutes. - buPROPion SR (ZYBAN SR; WELLBUTRIN SR) 150 mg 12 hr tablet - Nebulizers Use as directed. - levothyroxine (SYNTHROID) 25 mcg tablet Take 25 mcg by mouth daily before breakfast. - FLUoxetine (PROZAC) 20 mg capsule Take 20 mg by mouth once daily. - COMPOUNDED PRESCRIPTION Standard size Rollator Walker #1 Dx Large Blood Pressure Cuff #1 M51.36 DDD (degenerative disc disease), lumbar (primary encounter diagnosis) I10 Essential hypertension - benztropine (COGENTIN) 0.5 mg tablet Take 0.5 mg by mouth daily at bedtime. - COMPOUNDED PRESCRIPTION ADJUSTABLE CANE DX M51.36 Problem List As Of Date 08/26/2022 Noted Resolved Back pain [M54.9] DDD (degenerative disc disease), lumbar [M51.36] Emphysema of lung (HCC) [J43.9] Tobacco use disorder [F17.200] Hypertension [I10] GERD (gastroesophageal reflux disease) [K21.9] Carpal tunnel syndrome, bilateral [G56.03] 09/23/2015 Obesity [E66.9] Anemia [D64.9] 11/04/2015 Radiculopathy, lumbar region [M54.16] 11/05/2015 Alcohol abuse [F10.10] Chronic midline low back pain with left-sided s*04/21/2016 PE (pulmonary thromboembolism) (HCC) [I26.99] Hyperglycemia [R73.9] 07/14/2016 Stasis edema [I87.309] 07/28/2016 Right lumbar radiculopathy [M54.16] 08/11/2016 Obesity, Class III, BMI >= 40 (morbid obesity) *09/29/2016 Delusional disorder (HCC) [F22] 10/14/2016 Chronic low back pain with sciatica [M54.40, G8*06/07/2017 Abnormal echocardiogram [R93.1] 08/18/2017 Chronic left-sided low back pain with sciatica *11/29/2017 COPD (chronic obstructive pulmonary disease) wi*03/13/2018 Positive urine drug screen [R82.5] 08/16/2018 Encounter for support and coordination of trans*05/15/2020 05/02/2021 Mild protein-calorie malnutrition (HCC) [E44.1] 08/26/2020 11/12/2021 Lumbar spondylosis [M47.816] 02/26/2021 Cervical spondylosis without myelopathy [M47.81*02/26/2021 Encounter for support and coordination of trans*05/02/2021 07/23/2021 Other chest pain [R07.89] 10/21/2021 Stress incontinence [N39.3] 11/12/2021 Chronic active hepatitis C (HCC) [B18.2] 11/23/2021 History of colonic polyps [Z86.010] 11/23/2021 Traumatic closed nondisp torus fracture of dist*01/31/2022 Bacterial vaginosis [N76.0, B96.89] 02/02/2022 Spinal stenosis, lumbar region, without neuroge*02/24/2022 Cognitive impairment, mild, so stated [G31.84] 02/27/2022 Encounter Status:Closed by JACQUI RUDOLPH on 08/27/22 PROGRESS Observed: 08/16/2022 10:40 AM Status: COMPLETED Source: [facility] REPOSITORY HNO ID: [id number] Author: Jaimee Palomares PA-C Service: ? Author Type: Physician Living Supervisor Type: Progress Notes Filed: 08/16/2022 1:40 PM [...] disease) with chronic bronchitis (hcc) Centrilobar emphysema [place] Converter Operator: none. Interval history: none. Current medications: [...] suspicious mass or adenopathy. 05/05/2022 CTA chest [facility] admit: Mild peribronchial thickening with layered [...] Radiculopathy, lumbar region Pain management Dr. Troy, [facility] Current medications: Baclofen 10mg twice a day as needed Pregabalin 150mg twice a day Consult PT Can't sleep. Shooting pain from left buttock down leg in to left foot. 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 Taking everything she can. Tearful, c/o no one treating her pain. Wants medication for pain. States she wants surgery: see neurosurgeon at [facility] 06/24/2022 CT cervical spine without contrast [facility] ED, comparison 05/05/2022: Degenerative changes of [...] care 05/15/2020 HOSPITAL/ER FOLLOW UP Which facility: [facility] Dates of visit: 05/10-05/13/2020 Preadmission evaluation: [...] of admission 05/01/2021 Date of discharge: Facility: [facility] 05/01/2021 presented to the emergency [...] HX 1989's LAPAROSCOPY SURG CHOLECYSTECTOMY 05/12/2020 NEUROPLASTY AND/TRANSPOS MEDIAN [...] autograft, fell in firepit TONSILLECTOMY AND ADENOIDECTOMY <AGE 10 1979 Social History Tobacco [...] Pain With Left-Sided Sciatica Pe (Pulmonary Thromboembolism) ([facility]) Hyperglycemia Stasis Edema Right Lumbar Radiculopathy Obesity, Class III, BMI >= 40 (morbid obesity) E66.01 Delusional Disorder (Hcc) Chronic Low Back Pain With Sciatica Abnormal Echocardiogram Chronic Left-Sided Low Back Pain With Sciatica Copd (Chronic Obstructive Pulmonary Disease) With Chronic Bronchitis ([facility]) Positive Urine Drug Screen Lumbar Spondylosis Cervical Spondylosis Without Myelopathy Other Chest Pain Stress Incontinence Chronic Active Hepatitis C ([facility]) History of Colonic Polyps Traumatic Closed Nondisp [...] kg (142 lb) SpO2 97% BMI 20.97 kg/m? Pleasant adult woman, thin but stable, in [...] ICD9: 492.8, ICD10: J43.2 Stable, follows with [facility] 6. Alcohol abuse - ICD9: 305.00, [...] [facility] Encouraged f/u with pain management Jaimee Palomares PA-C Some of this note may have been copied and pasted for the purpose of history context and comparison. CNOV Observed: 08/16/2022 10:40 AM Status: COMPLETED Source: [facility] REPOSITORY Office Visit (FAMPWS) BRITTONMARILUZ Christine ([id number]) 1970 F Date Time Provider Department 08/16/22 10:40 AM Jaimee PALOMARES During your visit today, we recorded the following information about you: Pulse Respiration Blood pressure Weight 74/minute 18/minute 148/80 64.4 kg M Cici Palomares PA-C 08/16/2022 1:40 PM Signed 52 year old female with c/o Cognitive [...] disease) with chronic bronchitis (hcc) Centrilobar emphysema [place] Converter Operator: none. Interval history: none. Current medications: [...] suspicious mass or adenopathy. 05/05/2022 CTA chest [facility] admit: Mild peribronchial thickening with layered fluid [...] 03/12/2022 sofosbuvir-velpatasvir 400-100mg daily #28/2 completed. Josué Blevnis MD Gastroesophageal reflux disease without esophagitis History [...] Radiculopathy, lumbar region Pain management Dr. Troy, [facility] Current medications: Baclofen 10mg twice a day as needed Pregabalin 150mg twice a day Consult PT Can't sleep. Shooting pain from left buttock down leg in to left foot. 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 Taking everything she can. Tearful, c/o no one treating her pain. Wants medication for pain. States she wants surgery: see neurosurgeon at [facility] 06/24/2022 CT cervical spine without contrast [facility] ED, comparison 05/05/2022: Degenerative changes of [...] care 05/15/2020 HOSPITAL/ER FOLLOW UP Which facility: [facility] Dates of visit: 05/10-05/13/2020 Preadmission evaluation: [...] of admission 05/01/2021 Date of discharge: Facility: [facility] 05/01/2021 presented to the emergency [...] (HCC) 08/26/2020 Obesity PE (pulmonary thromboembolism) ([facility]) PTSD (post-traumatic stress disorder) Snoring Tobacco use [...] HX 1989's LAPAROSCOPY SURG CHOLECYSTECTOMY 05/12/2020 NEUROPLASTY AND/TRANSPOS MEDIAN [...] autograft, fell in firepit TONSILLECTOMY AND ADENOIDECTOMY <AGE 10 1979 Social History Tobacco [...] kg (142 lb) SpO2 97% BMI 20.97 kg/m? Pleasant adult woman, thin but stable, in [...] ICD9: 492.8, ICD10: J43.2 Stable, follows with [facility] 6. Alcohol abuse - ICD9: 305.00, [...] relief from epidural injections but denied by [facility]. Encouraged f/u with pain management Jaimee Palomares PA-C Some of this note may have been copied and pasted for the purpose of history context and comparison. Jaimee Palomares PA-C 08/16/2022 11:47 AM Signed See piriformis stretches; try 2-3 times a day. Allergies As of Date: 08/16/2022 Noted Allergy Reaction FENTANYL 08/22/2015 14 - Other: See Comments Comments: PATCH ONLY. Respiratory distress due to rapid absorption. CHANTIX (VARENICLINE) 09/30/2016 5 - Intolerance Comments: hallucinations Date Reviewed: 08/16/2022 Reviewed by: Bharti Perry Ma - Fully Assessed Reason for Visit: Follow Up [171] Primary Visit Diagnosis:Cognitive impairment, mild, so stated [G31.84] Other Visit Diagnoses:Hx pulmonary embolism [Z86.711] Tobacco use disorder [F17.200] COPD (chronic obstructive pulmonary disease) with chronic bronchitis (HCC) [J44.9] Centrilobular emphysema (HCC) [J43.2] Alcohol abuse [F10.10] Hyperglycemia [R73.9] Chronic active hepatitis C (HCC) [B18.2] Gastroesophageal reflux disease without esophagitis [K21.9] History of colonic polyps [Z86.010] Lumbar spondylosis [M47.816] Delusional disorder (HCC) [F22] Stasis edema of both lower extremities [I87.303] Spinal stenosis, lumbar region, without neurogenic claudication [M48.061] Chronic midline low back pain with left-sided sciatica [M54.42, G89.29] Radiculopathy, lumbar region [M54.16] Order(s):DEPRESSION SCREENING/ASSESSMENT [[id number]] Order #: [id number]: 1 HGB A1C [[id number]] Order #: [id number] FUTURE Prescriptions as of 08/16/2022 - omeprazole (PRILOSEC) 20 mg capsule TAKE 1 CAPSULE BY MOUTH DAILY - albuterol HFA (VENTOLIN HFA) 90 mcg/actuation inhaler Inhale 2 Puffs as instructed every 4 hours as needed for wheezing/shortness of breath. - baclofen (LIORESAL) 10 mg tablet Take 1 tablet by mouth twice daily as needed. - atorvastatin (LIPITOR) 40 mg tablet Take 1 tablet by mouth daily at bedtime. - pregabalin (LYRICA) 150 mg capsule Take one pill three times per day Do not start before July 26, 2022. - mirabegron (MYRBETRIQ) 25 mg Tb24 Take 1 tablet by mouth once daily. - thiamine (VITAMIN B1) 100 mg tablet Take 1 tablet by mouth once daily. - tiotropium bromide (SPIRIVA RESPIMAT) 2.5 mcg/actuation inhaler Inhale 2 Puffs as instructed once daily. - ferrous sulfate 325 mg (65 mg iron) tablet Take 1 tablet by mouth twice daily. - budesonide-formoterol (SYMBICORT) 160-4.5 mcg/actuation inhaler Inhale 2 Puffs as instructed twice daily. - L. acidophilus-L. rhamnosus (FLORAJEN WOMEN) 15 billion cell cap Take 1 capsule by mouth once daily. - QUEtiapine (SEROQUEL) 300 mg tablet Take 300 mg by mouth once daily. - cyanocobalamin (VITAMIN B-12) 1,000 mcg tab Take 1 tablet by mouth once daily. - lisinopril (ZESTRIL, PRINIVIL) 20 mg tablet Take 1 tablet by mouth once daily. - Cholecalciferol, Vitamin D3, (VITAMIN D) 25 mcg (1,000 unit) cap Take 1 capsule by mouth once daily. - VITAMIN C 500 mg tablet - oxybutynin ER (DITROPAN XL) 10 mg 24 hr tablet Take 1 tablet by mouth once daily. - albuterol (PROVENTIL) 2.5 mg /3 mL (0.083 %) nebulizer solution Use 3 mL via nebulizer every 4 hours as needed for wheezing/shortness of breath. Use over 5-15minutes. - buPROPion SR (ZYBAN SR; WELLBUTRIN SR) 150 mg 12 hr tablet - Nebulizers Use as directed. - levothyroxine (SYNTHROID) 25 mcg tablet Take 25 mcg by mouth daily before breakfast. - FLUoxetine (PROZAC) 20 mg capsule Take 20 mg by mouth once daily. - COMPOUNDED PRESCRIPTION Standard size Rollator Walker #1 Dx Large Blood Pressure Cuff #1 M51.36 DDD (degenerative disc disease), lumbar (primary encounter diagnosis) I10 Essential hypertension - benztropine (COGENTIN) 0.5 mg tablet Take 0.5 mg by mouth daily at bedtime. - COMPOUNDED PRESCRIPTION ADJUSTABLE CANE DX M51.36 Problem List As Of Date 08/16/2022 Noted Resolved Back pain [M54.9] DDD (degenerative disc disease), lumbar [M51.36] Emphysema of lung (HCC) [J43.9] Tobacco use disorder [F17.200] Hypertension [I10] GERD (gastroesophageal reflux disease) [K21.9] Carpal tunnel syndrome, bilateral [G56.03] 09/23/2015 Obesity [E66.9] Anemia [D64.9] 11/04/2015 Radiculopathy, lumbar region [M54.16] 11/05/2015 Alcohol abuse [F10.10] Chronic midline low back pain with left-sided s*04/21/2016 PE (pulmonary thromboembolism) (HCC) [I26.99] Hyperglycemia [R73.9] 07/14/2016 Stasis edema [I87.309] 07/28/2016 Right lumbar radiculopathy [M54.16] 08/11/2016 Obesity, Class III, BMI >= 40 (morbid obesity) *09/29/2016 Delusional disorder (HCC) [F22] 10/14/2016 Chronic low back pain with sciatica [M54.40, G8*06/07/2017 Abnormal echocardiogram [R93.1] 08/18/2017 Chronic left-sided low back pain with sciatica *11/29/2017 COPD (chronic obstructive pulmonary disease) wi*03/13/2018 Positive urine drug screen [R82.5] 08/16/2018 Encounter for support and coordination of trans*05/15/2020 05/02/2021 Mild protein-calorie malnutrition (HCC) [E44.1] 08/26/2020 11/12/2021 Lumbar spondylosis [M47.816] 02/26/2021 Cervical spondylosis without myelopathy [M47.81*02/26/2021 Encounter for support and coordination of trans*05/02/2021 07/23/2021 Other chest pain [R07.89] 10/21/2021 Stress incontinence [N39.3] 11/12/2021 Chronic active hepatitis C (HCC) [B18.2] 11/23/2021 History of colonic polyps [Z86.010] 11/23/2021 Traumatic closed nondisp torus fracture of dist*01/31/2022 Bacterial vaginosis [N76.0, B96.89] 02/02/2022 Spinal stenosis, lumbar region, without neuroge*02/24/2022 Cognitive impairment, mild, so stated [G31.84] 02/27/2022 Other instructions from your clinician: See piriformis stretches; try 2-3 times a day. Medications Discontinued During This Encounter Prescriptions - ibuprofen (MOTRIN) 800 mg tablet (Discontinued) Take 1 tablet by mouth every 8 hours as needed for pain. Take with food. - sofosbuvir-velpatasvir 400-100 mg (Discontinued) Take one tablet by mouth, with or without food, once daily same time of day Disposition: Return in about 3 months (around 11/13/2022). Follow-up and Disposition History for Encounter Date Provider Department Center 08/16/2022 [id number] PALOMARES FAMPWS [facility] Encounter Status:Closed by Jaimee PALOMARES on 08/16/22 ALLERGIES DATE TYPE / CODE NAME / CODE REACTION SEVERITY SOURCE 09/30/2016 DRUG INGREDI/[id number]( SNOMED CT) VARENICLINE INTOLERANCE [facility] 08/22/2015 DRUG INGREDI/[id number]( SNOMED CT) FENTANYL OTHER: SEE C [facility] ENCOUNTERS ADMIT/DISCHARGE ACCOUNT NUMBER ADMITTING ENCOUNTER CLASS LOCATION SOURCE 08/09/2023/08/09/19 24 [id number] [facility] 07/22/2023/07/22/19 24 [id number] [facility] 06/24/2023 [id number] Ambulatory [facility]Building:[facility] ([place] 06/08/2023/06/08/20 23 [id number] [facility] 05/10/2023/05/10/20 23 [id number] [facility] 03/11/2023/03/11/20 23 [id number] [facility]02/17/20 23 [id number] [facility] 02/14/2023/02/15/20 23 [id number] [facility] 02/14/2023/02/15/20 23 [id number] [facility]BECR [facility] 02/11/2023/02/12/20 23 [id number] [facility]EEGAK [facility] 02/09/2023/02/10/20 23 [id number] [facility]SPMN [facility] 01/26/2023/01/27/20 23 [id number] [facility]WOMR [facility] 01/04/2023/01/05/20 23 [id number] [facility]WOF[facility] 12/16/2022/12/17/19 23 [id number] [facility]WON2 [facility] 12/09/2022/12/10/19 23 [id number] [facility] 11/08/2022/11/09/19 23 [id number] [facility] 10/20/2022/10/21/[id number] [facility] 10/20/2022/10/21/19 23 [id number] [facility]WOL2 [facility] 10/14/2022/10/15/19 23 [id number] [facility] 09/16/2022/09/17/19 23 [id number] [facility]WOFM [facility] 09/01/2022/09/02/19 23 [id number] [facility]WOUS [facility] 09/01/2022/09/02/19 23 [id number] [facility]WODM [facility] 08/26/2022/08/27/19 23 [id number] [facility]WON[facility] 08/16/2022/08/16/19 23 [id number] [facility]WOFM [facility] PAYERS ENCOUNTER GUARANTOR PAYER SUBSCRIBER SOURCE 08/09/2023 Primary Insurance:CAR[employer]OURCE MEDICAIDPolicy Number: [id number] Date:4996-85-40Covf Name:Will REDDYB: [id number] [place] [address] [facility] 07/22/2023 Primary Insurance:[employer] MEDICAIDPolicy Number: [id number] Date:2372-22-13Khgz Name:Will REDDYB: [id number] [place] [address] [facility] 06/24/2023 MARILUZ REDDYB: [id number] [address], [place] [address]Btl: (HP) Primary Insurance:SELF PAY INSCOPolicy Number: Effective Date:7980-66-65Mzqe Name:Rashawn REDDYB: [id number], [place] [address]Dcj: (HP) (WP) [facility] ([place]) 06/08/2023 Primary Insurance:[facility] [place] MED[place]Policy Number: [id number] Date:5328-79-34Wjeo Name:Will REDDYPaul: [id number] [place] [place] [address] [facility] 05/10/2023 Primary Insurance:[employer] MEDICAIDPolicy Number: [id number] Date:6399-01-65Sbaq Name:Will REDDYPaul: [id number] [place], [place] [address] [facility] 03/11/2023 Primary Insurance:[employer] MEDICAIDPolicy Number: [id number] Date:6265-06-87Jnrp Name:Will REDDYPaul: [id number] [place], [place] [address] [facility] 02/16/2023 Primary Insurance:[employer] MEDICAIDPolicy Number: [id number] Date:3514-93-73Iurz Name:Will GARCIAANETTE: [id number] [place], [place] [address] [facility] 02/14/2023 Primary Insurance:[employer] MEDICAIDPolicy Number: [id number] Date:7145-48-88Zuba Name:Will REDDYB: [id number] [place], [place] [address] [facility] 02/14/2023 Primary Insurance:[employer] MEDICAIDPolicy Number: [id number] Date:9093-64-85Yyks Name:Will GARCIAB: [id number] [place] [place], [place] [address] [facility] 02/11/2023 Primary Insurance:[employer] MEDICAIDPolicy Number: [id number] Date:5084-62-72Uhen Name:Will Christine BARRYB: [id number] [place], [place] [address] [facility] 02/09/2023 Primary Insurance:[employer] MEDICAIDPolicy Number: [id number] Date:3116-32-23Eoup Name:Will GARCIAB: [id number] [place], [place] [address] [facility] 01/26/2023 Primary Insurance:[employer] MEDICAIDPolicy Number: [id number] Date:6452-42-39Xyro Name:Will GARCIAB: [id number] [place], [place] [address] [facility] 01/04/2023 Primary Insurance:[employer] MEDICAIDPolicy Number: [id number] Date:8853-78-41Uwmv Name:Will GARCIAB: [id number] [place], [place] [address] [facility] 12/16/2022 Primary Insurance:[employer] MEDICAIDPolicy Number: [id number] Date:0228-20-24Vjye Name:Will REDDYB: [id number] [place] [address] [place] [address] [facility] 12/09/2022 Primary Insurance:[facility] [place] MEDICA[place]Policy Number: [id number] Date:8182-82-18Dztg Name:Will REDDYB: [id number] [place], [place] [address] [facility] 11/08/2022 [facility] MEDICAIDPolicy Number: [id number] Date:9221-29-92Hcdh Name:Will GARCIAB: [id number] [place], [place] [address] [facility] 10/20/2022 Primary Insurance:[facility] MEDICAIDPolicy Number: [id number] Date:7941-27-33Liqk Name:Will GARCIAB: [id number] [place], [place] [address] [facility] 10/20/2022 Primary Insurance:[facility] MEDICAIDPolicy Number: [id number] Date:1903-73-47Nzvq Name:Will REDDYB: [id number] [place], [place] [address] [facility] 10/14/2022 Primary Insurance:[facility] [place] MEDICA[place]Policy Number: [id number] Date:9558-02-30Vigk Name:Will GARCIAB: [id number] [place] [place], [place] [address] [facility] 09/16/2022 Primary Insurance:[facility] [place] MEDICAIDPolicy Number: [id number] Date:3870-80-83Hboz Name:Will GARCIAB: [id number] [place], [place] [address] [facility] 09/01/2022 Primary Insurance:[facility] [place] MEDICAIDPolicy Number: [id number] Date:5758-82-77Obpu Name:Will Christine ELMER: [id number] [place] [address] [facility] 09/01/2022 Primary Insurance:[employer] MEDICAIDPolicy Number: [id number] Date:1510-85-10Sfda Name:Will Christine ELMER: [id number] [place], [place] [address] [facility] 08/26/2022 Primary Insurance:[employer] MEDICAIDPolicy Number: [id number] Date:8176-27-74Wrzd Name:Will Christine ELMER: [id number] [place] [address] [facility] 08/16/2022 Primary Insurance:[employer] MEDICAIDPolicy Number: [id number] Date:3946-35-43Poyj Name:Will Christine ELMER: [id number] [place] [address] [facility]
--- NOTE | 2023-08-12 19:39 | CT_ITS ---
STUDY: CT LUMBAR SPINE WITHOUT CONTRAST REASON FOR EXAM: Female, 53 years old. pain RADIATION DOSAGE (If Supplied By Facility): CTDIvol = ( 21.56 ) mGy, DLP = ( 831.39 ) mGycm TECHNIQUE: The patient was scanned in a multi detector CT scanner. High resolution transaxial imaging was performed. Images were obtained from T12 to S1. Sagittal and coronal images were reconstructed. Individualized dose optimization techniques were used for this CT. COMPARISON: X-ray 05/15/2023 FINDINGS: Normal lumbar lordosis. Mild levoscoliosis centered at L4. Normal vertebrae of the lumbar spine. L1-2: Mild bilateral facet hypertrophy and ligament flavum hypertrophy. Mild bilobed disc protrusion with vacuum disc formation produces mild spinal stenosis and mild bilateral neural foraminal stenosis. L2-3: Mild bilateral facet hypertrophy and ligament flavum hypertrophy. Moderate bilobed disc protrusion produces moderate spinal stenosis, mild right neural foraminal stenosis and the moderate left neural foraminal stenosis. L3-4: Mild bilateral facet hypertrophy and ligament flavum hypertrophy. 2 mm retrolisthesis of L3 on L4 with a mild bilobed disc protrusion with vacuum disc formation produces moderate spinal stenosis, moderate right neural foraminal stenosis and mild left neural foraminal stenosis. L4-5: Mild bilateral facet hypertrophy and ligament flavum hypertrophy. Moderate bilobed disc osteophyte complex produces moderate spinal stenosis, moderate right neural foraminal stenosis and mild left neural foraminal stenosis. L5-S1: Mild right facet hypertrophy and moderate left facet hypertrophy with moderate ligament flavum hypertrophy. Moderate broad disc protrusion produces moderate spinal stenosis with moderate right neural foraminal stenosis and severe left neural foraminal stenosis. Normal visualized paraspinous soft tissue structures. CT/Spine Lumbar without Contrast IMPRESSION: Mild levoscoliosis with degenerative disc disease as described above. Electronically Signed: Km Esquivel MD at 21:00 EST ,
[2023-08-12 19:52] LABS: Absolute Lymphocyte Count 1.96 X10^3/uL (0.83-4.51); Absolute Neutrophil Count 4.9 X10^3/uL (2.0-7.7); Basophil# 0.06 X10^3/uL; Basophil% 0.8 % (0-1); Eosinophil# 0.31 X10^3/uL; Eosinophils% 3.9 % (0-5); Lymphocyte # 1.96 X10^3/ul (0.83-4.51); Lymphocyte % 24.6 % (19-41); Mean Corp Hgb Conc 32.6 g/dL (32-36); Mean Corpuscular Hgb 29.5 pg (27.0-32.0); Mean Corpuscular Volume 90.5 fL (81-99); Mean Platelet Vol. 11.8 fl (6.2-12.0); Monocyte% 8.8 % (0-10); NRBC Flagged by Analyzer 0 % (0-5); Neutrophil # 4.88 X10^3/uL (2.7-7.7); Neutrophil % 61.3 % (47-70); Platelet Count 254 K/mm3 (150-450); RBC Distribution Width CV 13.6 % (11.6-14.6); RBC Distribution Width SD 45.6 fl (35.1-43.9); Red Blood Count 4.75 M/mm3 (4.2-5.4)
[2023-08-12 20:08] LABS: Anion Gap 5 (5-15); BUN 15 mg/dL (7-18); BUN/Creat Ratio 22.1 RATIO (10-20); Calcium,Total 9.3 mg/dL (8.5-10.1); Chloride 104 mmol/L (98-107); Creatinine, Serum 0.68 mg/dL (0.55-1.02); EST Glomerular Filtration Rate 96 mL/min (>60); Est Glom Filt Rate - Afr Amer 116 mL/min (>60); Estimated Creatinine Clearance 105.63 ml/min; Glucose 93 mg/dL (74-106); Potassium 3.5 mmol/L (3.5-5.1); Sodium Level 137 mmol/L (136-145)
--- NOTE | 2023-08-12 21:31 | PCM.HP.STD ---
HPI - General General Date of Admission: 08/12/23 Date of Service: 08/12/23 Chief Complaint: Intractable back pain HPI Narrative The patient is a 53 y/o F w/ PMHx: Obesity, Tobacco use, SANA, RLS, Hx VTE (DVT, PE), Cannabis use, Recurrent syncopal events, HTN, HLD, Hypothyroidism, GERD, Anxiety and Depression/Bipolar disorder/PTSD, Hx ETOH abuse currently sober who presents to the [facility] ED on 08/12/23 with history of persistent lumbar back pain with radiation down her left lower extremity with ongoing outpatient evaluation with orthopedic surgery with evaluation on day of presentation by her surgeon Dr. Skinner who noted her neck was healing well but given ongoing lumbar pain with MRI 10/2022 plan at that time for pain management referral with ongoing usage of Percocet which has been helping some but the pain has been so debilitating that following EMS call she was not even able to put any weight on the right lower extremity. Patient has been having urinary issues but is primarily secondary to the fact that she cannot get there quick enough because of the pain. She notes her pain currently 6 out of 10 in severity but she is not moving and with any attempts of activity or attempted bear weight she reports her pain is 10 out of 10 in severity with dull aching and sharp stabbing at the same time. Workup in the ED included T97.4, heart rate 79, BP 131/82, respiratory rate 20, 96% room air, CBC with WBC 8.0, hemoglobin 14, platelet 254 without marked shift, BMP unremarkable, plain film of the CT lumbar spine without contrast with mild levoscoliosis with degenerative disc disease. In the ED patient administered Zofran 4 mg IV x 1, morphine 4 mg IV x 2, Solu-Medrol 125 mg IV x 1. [facility] Medical History (Updated 08/12/23 @ 23:[address] Kelly Vidales MD) Ambulates with cane Anemia Anxiety and depression Arthritis Bipolar disorder Chronic pain Closed C3 fracture COPD (chronic obstructive pulmonary disease) Gastric reflux High cholesterol History of alcohol abuse Hypertension Hypothyroidism Marijuana use Migraines On home oxygen therapy SANA (obstructive sleep apnea) Osteoporosis Pulmonary embolism Recurrent syncope Restless legs Transient hypotension Walker as ambulation aid Wears glasses Home Medications bupropion HCl 150 mg tablet,12 hr sustained-release (Wellbutrin SR) 300 mg PO DAILY depression 04/30/21 [History Last Taken 06/16/23] ferrous sulfate 325 mg (65 mg iron) tablet 325 mg PO BID supplement 04/30/21 [History Last Taken 06/16/23] levothyroxine 25 mcg tablet 25 mcg PO DAILY hypothyroid 04/30/21 [History Last Taken 06/16/23] tiotropium bromide 2.5 mcg/actuation mist for inhalation (Spiriva Respimat) 2 puff inhalation DAILY COPD 04/30/21 [History Last Taken 06/16/23] albuterol sulfate 2.5 mg/3 mL (0.083 %) solution for nebulization 2.5 mg inhalation Q6H PRN PRN Shortness Of Breath Or Wheezing 10/12/21 [History Last Taken 06/16/23] albuterol sulfate 90 mcg/actuation aerosol inhaler (Ventolin HFA) 1 puff inhalation Q4H PRN PRN Shortness Of Breath Or Wheezing 10/12/21 [History Last Taken 05/14/23 10:00 1 puff] cholecalciferol (vitamin D3) 25 mcg (1,000 unit) capsule (Vitamin D3) 25 mcg PO DAILY vitamin 10/12/21 [History Last Taken 06/16/23] atorvastatin 40 mg tablet 40 mg PO QHS cholesterol 02/03/22 [History Last Taken 06/16/23] omeprazole 20 mg capsule,delayed release 20 mg PO DAILY reflux 03/25/22 [History Last Taken 06/16/23] baclofen 10 mg tablet 5 mg (1/2 x 10 mg) PO BID pain #30 tabs 05/06/22 [Rx Last Taken 06/16/23] cyanocobalamin (vitamin B-12) 1,000 mcg tablet (Vitamin B-12) 1,000 mcg PO DAILY supplement 07/27/22 [History Last Taken 06/16/23] mirabegron 25 mg tablet,extended release 24 hr (Myrbetriq) 25 mg PO DAILY OVERACTIVE BLADDER 07/27/22 [History Last Taken 06/16/23] olanzapine 10 mg tablet 10 mg PO DAILY MOOD 10/28/22 [History Last Taken 06/16/23] oxybutynin chloride 10 mg tablet,extended release 24 hr 10 mg PO DAILY OVERACTIVE BLADDER 10/28/22 [History Last Taken 06/16/23] trazodone 150 mg tablet 150 mg PO QHS SLEEP 10/28/22 [History Last Taken 06/16/23] amlodipine 10 mg tablet 10 mg PO DAILY bp #30 tabs 12/29/22 [Rx Last Taken 06/16/23] metoprolol succinate 50 mg tablet,extended release 24 hr 50 mg PO DAILY bp 05/15/23 [History Last Taken 06/16/23] pregabalin 150 mg capsule (Lyrica) 150 mg PO TID pain 3 days #9 caps 05/23/23 [Rx Last Taken 06/16/23] acetaminophen 500 mg tablet 1,000 mg (2 x 500 mg) PO Q8 #0 tabs 06/21/23 [Rx Last Taken Unknown] meloxicam 15 mg tablet 7.5 mg (1/2 x 15 mg) PO DAILY 30 days #15 tabs 06/21/23 [Rx Last Taken Unknown] melatonin 3 mg tablet 3 mg PO QHS PRN PRN Insomnia #0 tabs 07/03/23 [Rx Last Taken Unknown] amlodipine PO DAILY 08/12/23 [History Last Taken Unknown] atorvastatin PO QHS 08/12/23 [History Last Taken Unknown] baclofen PO TID 08/12/23 [History Last Taken Unknown] bupropion HCl PO DAILY 08/12/23 [History Last Taken Unknown] meloxicam PO BID 08/12/23 [History Last Taken Unknown] metoprolol succinate PO DAILY 08/12/23 [History Last Taken Unknown] mirabegron PO DAILY 08/12/23 [History Last Taken Unknown] olanzapine PO 08/12/23 [History Last Taken Unknown] omeprazole PO DAILY 08/12/23 [History Last Taken Unknown] oxybutynin chloride PO DAILY 08/12/23 [History Last Taken Unknown] pregabalin PO TID 08/12/23 [History Last Taken Unknown] Allergy/AdvReac Type Severity Reaction Status Date / Time fentanyl Allergy Anaphylaxis Verified 08/12/23 13:58 varenicline [From Chantix] AdvReac hallucinati Verified 08/12/23 13:58 ons Family History (Updated 08/12/23 @ 23:[address] Kelly Vidales MD) Mother Cancer Lung CA. Hypertension Heart disease COPD (chronic obstructive pulmonary disease) Father Hypertension Heart disease Heart failure Surgical History H/O skin graft H/O: hysterectomy Hx of cholecystectomy Hx of tonsillectomy S/P cervical spinal fusion Social History (Updated 08/12/23 @ 23:[address] Kelly Vidales MD) household members: other details: Lives with her son. Smoking Status: Light Smoker (<10/day) alcohol intake: former substance use type: marijuana additional social history: disabled ROS ROS Narrative Admission Review of Systems: CONSTITUTIONAL: No weight loss, fever, chills, + weakness or fatigue. HEENT: Eyes: No visual loss, blurred vision, double vision or yellow sclerae. Ears, Nose, Throat: No hearing loss, sneezing, congestion, runny nose or sore throat. SKIN: No rash or itching, lesions, wounds. CARDIOVASCULAR: No chest pain, chest pressure or chest discomfort, palpitations, edema, orthopnea, syncopal events. RESPIRATORY: No shortness of breath, cough or sputum, wheezing, hemoptysis. GASTROINTESTINAL: No anorexia, nausea, vomiting or diarrhea, abdominal pain, melena, BRBPR. GENITOURINARY: No dysuria, frequency, urgency or retention. NEUROLOGICAL: + Generalized weakness, RLE radiculopathy. No headache, dizziness, syncope, paralysis, ataxia, numbness or tingling in the extremities, focal weakness, change in bowel or bladder control, seizure. MUSCULOSKELETAL: + muscle, back pain, joint pain or stiffness. HEMATOLOGIC: + anemia, easy bleeding/bruising. LYMPHATICS: No enlarged nodes. No history of splenectomy. PSYCHIATRIC: + History of anxiety and depression/bipolar disorder/PTSD. ENDOCRINOLOGIC: No reports of sweating, cold or heat intolerance. No polyuria or polydipsia. ALLERGIES: + History of anaphylaxis. Vital Signs Vital Signs Vital Signs: 08/12/23 17:13 08/12/23 18:28 08/12/23 20:00 Temperature 97.4 F L Temperature Source Temporal Pulse Rate 79 87 Respiratory Rate 20 H 16 Blood Pressure 131/82 H 117/84 H 119/82 H Blood Pressure Mean 98 95 94 Pulse Ox 96 99 Oxygen Delivery Method Room Air Room Air Weight Weight: 198 lb 6.656 oz Body Mass Index (BMI) 32.0 Physical Exam Narrative Physical Examination: General: Awake, alert, oriented x 3 and cooperative, seated upright in the ED bed, notes pain improved, currently 4-5 out of 10 in severity. Skin: Normal color, normal turgor, no icterus, no cyanosis except occasional staged ecchymoses. HEENT: AT/NC, EOMI, PERRLA, mildly dry MM, no carotid bruits or JVD noted. Lungs: CTA bilaterally, moderate effort, mild decrease BL bases, no rales, ronchi or wheezing. Heart: Regular rate and rhythm; no gallop, rub audible. Abdomen: Soft, obese, NTTP, ND, mildly hyperactive BS, no HSM. Extremities: No cyanosis, no clubbing, mild peripheral edema, chronic, discomfort with attempted straight leg raise to the lumbar spine. Neurological: Patient awake, alert, oriented as noted, cognitive function intact; pupils equally reactive to light and accommodation, cranial nerves II-XII grossly normal, moving all 4 extremities however limited given back pain ongoing, strength accordingly severely globally decreased. Psychiatric: Affect appears fatigued otherwise normal, no acute evidence of depressive or anxiety feelings but does have underlying history Results Lab / Micro Data 08/12/23 17:57 08/12/23 17:57 Labs: Laboratory Results - last 24 hr 08/12/23 17:57: WBC 8.0, RBC 4.75, Hgb 14.0, Hct 43.0, MCV 90.5, MCH 29.5, MCHC 32.6, RDW Std Deviation 45.6 H, RDW Coeff of Sandeep 13.6, Plt Count 254, MPV 11.8, Immature Gran % (Auto) 0.600, Neut % (Auto) 61.3, Lymph % (Auto) 24.6, Wilbarger % (Auto) 8.8, Eos % (Auto) 3.9, Baso % (Auto) 0.8, Absolute Neuts (auto) 4.9, Absolute Lymphs (auto) 1.96, Nucleated RBC % 0, Sodium 137, Potassium 3.5, Chloride 104, Carbon Dioxide 28.0, Anion Gap 5, BUN 15, Creatinine 0.68, Estim Creat Clear Calc 105.63, Est GFR (MDRD) Af Amer 116, Est GFR (MDRD) Non-Af 96, BUN/Creatinine Ratio 22.1 H, Glucose 93, Calcium 9.3 Imaging Radiology Impression Lumbar Spine CT 08/12/23 19:39 IMPRESSION: Mild levoscoliosis with degenerative disc disease as described above. Electronically Signed: Km Esquivel MD at 21:00 EST , Assessment & Plan Assessment/Plan (1) Intractable back pain: PLAN: Plan The patient is a 53 y/o F w/ PMHx: Obesity, Tobacco use, SANA, RLS, Hx VTE (DVT, PE), Cannabis use, Recurrent syncopal events, HTN, HLD, Hypothyroidism, GERD, Anxiety and Depression/Bipolar disorder/PTSD, Hx ETOH abuse currently sober who presents to the [facility] ED on 08/12/23 with history of persistent lumbar back pain with radiation down her left lower extremity with ongoing outpatient evaluation with orthopedic surgery with evaluation on day of presentation by her surgeon Dr. Skinner who noted her neck was healing well but given ongoing lumbar pain with MRI 10/2022 plan at that time for pain management referral with ongoing usage of Percocet which has been helping some but the pain has been so debilitating that following EMS call she was not even able to put any weight on the right lower extremity. #1. Acute Intractable Back Pain: Will admit to [facility], maintain on fall precautions, frequent positioning, initiate IV toradol, lidoacine patches, increase home baclofen regimen to TID, continue home lyrica regimen, initiate medrol dose pack, po/IV narcotic pain regimen, anti-emetics, bowel regimen. If pain not improving or concerns arise may need to consider MRI further imaging. If pain not improving and imaging needed may also consider involvement of patient surgeon if intervention necessary. Will consult PT and OT for evaluation as well as Case management for discharge planning. #2. Chronic anemia/iron deficiency anemia: Admission hemoglobin 14.0, MCV 90.5, baseline hemoglobin previously primarily 11 range, certainly could be falsely elevated, last noted 07/03/2023 hemoglobin 11, will repeat in a.m., continue iron supplementation. #3. Hypertension: Continue home regimen including amlodipine, PRN hydralazine. #4. Hyperlipidemia: We will continue patient on statin therapy. #5. Anxiety and depression/bipolar disorder/PTSD: We will continue patient home Wellbutrin, olanzapine, trazodone home regimen. #6. History VTE: Patient with chart reported history of DVT and PE, per current list not chronically anticoagulated currently, potentially provoked in the past. #7. Former alcohol abuse: Encouraged continued sobriety. #8. Tobacco Abuse: Encouraged cessation, inpatient consultation per RT, NR if desired. #9. Hypothyroidism: We will continue patient home levothyroxine regimen. #10. Restless leg syndrome: Per current list not on chronic regimen although does take pregabalin as well as baclofen. #11. Obesity: Weight loss and lifestyle changes encouraged. #12. GERD: We will continue patient on PPI. #13. SANA: CPAP nightly. #14. DVT prophylaxis: Lovenox. #15. CODE STATUS: Full code. Charges/Coding Visit Charges Inpatient E&M: 22533 Init Hosp L2
[2023-08-12] MEDS: MethylPREDNISolone DosePak 4 MG BOX PO (22:00)
--- OUTSIDE RECORDS SUMMARY | 2023-08-12 22:17 | XMS RPT_ITS | CCD ---
Author Name Unknown Address [address] [place] [address] Organization [facility] Care Team Providers Care Community Relations Assistant Name Role Phone MATTHEW ULLOA Admitting Unavailable MATTHEW ULLOA Attending Unavailable MATTHEW ULLOA Admitting Unavailable MATTHEW ULLOA Attending Unavailable MATTHEW ULLOA Admitting Unavailable MATTHEW ULLOA Attending Unavailable MEMO HUBER Consulting Unavailable KATHRYN LANG MD Admitting Unavailable KATHRYN LANG MD Attending Unavailable KATHRYN LANG MD Primary Care Unavailable PROVIDER, UNKNOWN Consulting Unavailable Jaimee Palomares PA-C Primary Care Provider [phone] Jaimee Palomares PA-C Primary Care Provider [phone] Jaimee Palomares PA-C Primary Care Provider [phone] Jaimee Palomares PA-C Primary Care Provider [phone] Jaimee PALOMARES Primary Care Unavailable ANAY ESTEBAN Attending Unavailable IBETH ALBERT Referring Unavailable Jaimee PALOMARES Primary Care Unavailable SHIRA AKM Attending Unavailable DELORIS TROY Attending Unavailable DELORIS TROY Referring Unavailable Jaimee PALOMARES Primary Care Unavailable DELORIS TROY Attending Unavailable Jaimee PALOMARES Primary Care Unavailable SHIRA KAM Referring Unavailable Jaimee PALOMARES Primary Care Unavailable IBETH ALBERT Referring Unavailable PHYSICIAN, NONE Attending Unavailable PHYSICIAN, NONE Primary Care Unavailable Jaimee PALOMARES Attending Unavailable Jaimee PALOMARES Primary Care Unavailable Jaimee PALOMARES Primary Care Unavailable JENIFER YEAGER Attending Unavailable Jaimee PALOMARES Primary Care Unavailable Jaimee PALOMARES Attending Unavailable Jaimee PALOMARES Primary Care Unavailable Jaimee PALOMARES Attending Unavailable SELF Referring Unavailable MARVIN LEAVITT Attending Unavailable JELANI, M CICI Primary Care Unavailable JELANI Jaimee BOLANOS Primary Care Unavailable DAHLHAUSEN, URVASHI Referring Unavailable EVELIO JENIFER Referring Unavailable CARMELITA RAGSDALE Attending Unavailable Jaimee PALOMARES Primary Care Unavailable Jaimee PALOMARES Attending Unavailable PALOMARES, Jaimee RAMSEYCICI Primary Care Unavailable PALOMARES, Jaimee RAMSEYCICI Primary Care Unavailable PALOMARES, Jaimee RAMSEYCICI Referring Unavailable DABAN, URVASHI Attending Unavailable PALOMARES, Jaimee RAMSEYCICI Primary Care Unavailable PALOMARES, Jaimee RAMSEYCICI Primary Care Unavailable PALOMARESJaimee Attending Unavailable PALOMARES, Jaimee RAMSEYCICI Primary Care Unavailable DADELMEREN, URVASHI Referring Unavailable PALOMARES, Jaimee BOLANOS Referring Unavailable IBETH ALBERT Attending Unavailable PALOMARES, Jaimee CICI Primary Care Unavailable JENIFER YEAGER Referring Unavailable PALOMARES, Jaimee RAMSEYCICI Primary Care Unavailable FLO MARTINO Attending Unavailab Jaimee Francois Primary Care Unavailable LILIAM ROWELL Attending Unavailable JELANI, Jaimee BOLANOS Primary Care Unavailable MEMO LEAHY JR Referring Unavailable JELANI, Jaimee BOLANOS Primary Care Unavailable URVASHI HUGHES Attending Unavailable MEMO HUBER Referring Unavailable Jaimee PALOMARES Primary Care Unavailable MEMO HUBER Referring Unavailable Jaimee PALOMARES Primary Care Unavailable Jaimee PALOMARES Attending Unavailable JELANI, Jaimee BOLANOS Primary Care Unavailable Allergies Allergy Classification Reported Allergen(s) Allergy Type Date of Onset Reaction(s) Facility (20 sources) [email or web address]; Translations: [FENTANYL] Drug Allergy 6 Other: See Comments [facility] Repository (20 sources) varenicline; Translations: [VARENICLINE] Drug Allergy 7 Intolerance [facility] Repository (1 source) varenicline Drug Allergy [facility] Repository Medications Current Medications Medication [...] Drug Class(es) Dates Sig (Normalized) Sig (Original) [id number] 200 actuat albuterol 0.09 mg/actuat metered dose [...] Problem Classification Problem Date Documented Date Episodic/Chronic Acute and unspecified renal failure (1 source) Acute renal failure syndrome; Translations: [Acute kidney failure, unspecified] 08-10-2023 Episodic Alcohol-related disorders (20 sources) Alcohol dependence, in [...] of right breast] 02-14-2023 Chronic Nutritional deficiencies (20 sources) Vitamin D deficiency; Translations: [Vitamin D deficiency, unspecified] Onset: 08-26-2020 Chronic Nutritional deficiencies (1 source) Cobalamin deficiency; Translations: [Deficiency of other specified B group vitamins] 08-09-2023 Episodic Osteoarthritis (4 sources) Osteoarthritis of right hip joint; Translations: [Unilateral primary osteoarthritis, right hip] Onset: 02-09-2023 02-16-2023 Chronic Other aftercare (3 sources) Polypharmacy ; Translations: [Other 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 foreman (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) drug therapy] Episodic Other aftercare (1 source) Post-discharge follow-up; Translations: [Encounter for follow-up examination after completed treatment for conditions other than malignant neoplasm] Episodic Other and ill-defined heart disease (1 source) Diastolic dysfunction; Translations: [Other ill-defined heart diseases] 08-10-2023 Chronic Other connective tissue disease (5 sources) Fibromyalgia; [...] Translations: [Arthrodesis status] Onset: 06-08-2023 Episodic Other diseases of veins and lymphatics [...] specified noninflammatory disorders of vagina] Episodic Other fractures (2 sources) Closed fracture of third cervical vertebra; Translations: [Unspecified nondisplaced fracture of third cervical vertebra, subsequent encounter for fracture with routine healing] 08-04-2023 Episodic Other hereditary and degenerative nervous system [...] and awareness] Episodic Other nervous system disorders (2 sources) Abnormal gait; Translations: [Unsteadiness on feet] Episodic Other nervous system disorders (2 sources) Impairment of balance; Translations: [Other abnormalities of gait and mobility] Episodic Other nervous system disorders (1 source) Paresthesia of hand ; Translations: [Anesthesia of skin] 05-10-2023 Episodic Other nervous system disorders (1 source) Cold hands; Translations: [Other disturbances of skin sensation] 05-10-2023 Episodic Other nutritional; endocrine; and metabolic [...] of malignant neoplasm of ovary] 02-14-2023 Episodic Residual codes; unclassified (8 sources) History of surgical procedure on cervical spine; Translations: [Other specified postprocedural states] Onset: 07-22-2023 07-22-2023 Episodic Schizophrenia and other psychotic disorders (20 [...] Problem Classification Problem Date Documented Date Episodic/Chronic Administrative/social admission (8 sources) Patient encounter status; Translations: [Persons encountering health services in other specified circumstances] Onset: 05-02-2021 07-07-2023 Episodic Deficiency and other anemia (20 sources) Anemia; [...] 10-21-2021 Episodic Other aftercare (1 source) Other long-term (current) drug therapy; Translations: [Polypharmacy] Onset: 12-16-2022 Episodic Other and unspecified benign neoplasm (20 [...] of both hands] Onset: 05-10-2023 Episodic Other connective tissue disease (1 [...] of cold hands] Onset: 05-10-2023 Episodic Other nervous system disorders (1 source) Other symptoms and signs involving cognitive functions and awareness; Translations: [Cognitive impairment] Onset: 02-11-2023 Episodic Other nervous system disorders (1 source) Other abnormalities of gait and mobility; Translations: [Balance problem] Onset: 01-26-2023 Episodic Other nutritional; endocrine; and metabolic disorders [...] Vital Sign Value Performing Clinician Desi leon 08-09-2023 12:07-0500 Body weight 91.63 kg NA Palomares PA-C Work Phone: [facility] 08-09-2023 12:07-0500 Diastolic blood pressure 70 mm[Hg] NA Palomares PA-C Work Phone: [facility] 08-09-2023 12:07-0500 Heart rate 77 /min NA Palomares PA-C Work Phone: [facility] 08-09-2023 12:07-0500 Respiratory rate 20 /min NA Palomares PA-C Work Phone: [facility] 08-09-2023 12:07-0500 SaO2% (BldA) [Mass fraction] 96 % NA Palomares PA-C Work Phone: [facility] 08-09-2023 12:07-0500 Systolic blood pressure 118 mm[Hg] NA Palomares PA-C Work Phone: [facility] 05-10-2023 11:11-0500 Diastolic blood pressure 70 mm[Hg] Flo Martino MD Work Phone: [facility] 05-10-2023 11:11-0500 Heart rate 67 /min Flo Martino MD Work Phone: [facility] 05-10-2023 11:11-0500 Respiratory rate 20 /min Flo Martino MD Work Phone: [facility] 05-10-2023 11:11-0500 SaO2% (BldA) [Mass fraction] 99 % Flo Martino MD Work Phone: [facility] 05-10-2023 11:11-0500 Systolic blood pressure 118 mm[Hg] Flo Martino MD Work Phone: [facility] 02-14-2023 10:24-0400 Body height 165.1 cm Carmelita Ragsdale MD Work Phone: [facility] 02-14-2023 10:24-0400 Body weight 70.31 kg Carmelita Ragsdale MD Work Phone: [facility] 12-16-2022 11:20-0400 Body weight 64.05 kg Urvashi Dahlhausen [employer]LECTRONICS DETAIL DRAFTSPERSON.[employer] PR[employer] SUPERVISOR Work Phone: [facility] 12-16-2022 11:20-0400 Diastolic blood pressure 100 mm[Hg] Urvashi Dahlhausen ELECTRONICS DETAIL DRAFTSPERSON.[employer]TR[employer] PRESS SUPERVISOR Work Phone: [facility] 12-16-2022 11:20-0400 Heart rate 106 /min Urvashi Dahlhausen ELECTRONICS DETAIL DRAFTSPERSON.EXTR[employer] PRESS SUPERVISOR Work Phone: [facility] 12-16-2022 11:20-0400 Respiratory rate 20 /min Urvashi Dahlhausen ELECTRONICS DETAIL DRAFTSPERSON.[employer] PRESS SUPERVISOR Work Phone: [facility] 12-16-2022 11:20-0400 SaO2% (BldA) [Mass fraction] 98 % Urvashi Dahlhausen ELECTRONICS DETAIL DRAFTSPERSON.[employer]TR[employer] PRESS SUPERVISOR Work Phone: [facility] 12-16-2022 11:20-0400 Systolic blood pressure 168 mm[Hg] Urvashi Dahlhausen ELECTRONICS DETAIL DRAFTSPERSON.EXTR[employer] PRESS SUPERVISOR Work Phone: [facility] 12-09-2022 15:17-0400 Body weight 71.67 kg NA Palomares PA-C Work Phone: [facility] 12-09-2022 15:17-0400 Diastolic blood pressure 80 mm[Hg] NA Palomares PA-C Work Phone: [facility] 12-09-2022 15:17-0400 Heart rate 72 /min NA Palomares PA-C Work Phone: [facility] 12-09-2022 15:17-0400 Respiratory rate 18 /min NA Palomares PA-C Work Phone: [facility] 12-09-2022 15:17-0400 SaO2% (BldA) [Mass fraction] 96 % NA Palomares PA-C Work Phone: [facility] 12-09-2022 15:17-0400 Systolic blood pressure 128 mm[Hg] NA Palomares PA-C Work Phone: [facility] 10-20-2022 11:10-0400 Body weight 61.24 kg Jenifer Yeager APRN.CNM Work Phone: [facility] 10-20-2022 11:10-0400 Diastolic blood pressure 84 mm[Hg] Jeniferluis Yeager APRN.CNM Work Phone: [facility] 10-20-2022 11:10-0400 Systolic blood pressure 144 mm[Hg] Jenifer Yeager APRN.CNM Work Phone: [facility] 10-14-2022 13:24-0400 Heart rate 75 /min Deloris Troy MD Work Phone: [facility] 10-14-2022 13:24-0400 Respiratory rate 16 /min Deloris Troy MD Work Phone: [facility] 10-14-2022 13:24-0400 SaO2% (BldA) [Mass fraction] 97 % Deloris Troy MD Work Phone: [facility] 09-16-2022 14:05-0400 Body weight 59.42 kg NA Palomares PA-C Work Phone: [facility] 09-16-2022 14:05-0400 Diastolic blood pressure 88 mm[Hg] NA Palomares PA-C Work Phone: [facility] 09-16-2022 14:05-0400 Heart rate 92 /min NA Palomares PA-C Work Phone: [facility] 09-16-2022 14:05-0400 Respiratory rate 18 /min NA Palomares PA-C Work Phone: [facility] 09-16-2022 14:05-0400 SaO2% (BldA) [Mass fraction] 99 % NA Palomares PA-C Work Phone: [facility] 09-16-2022 14:05-0400 Systolic blood pressure 170 mm[Hg] NA Palomares PA-C Work Phone: [facility] 08-26-2022 10:03-0500 Body temperature 97.81 [degF] Urvashi Dahlhausen ELECTRONICS DETAIL DRAFTSPERSON.[employer] PR[employer] SUPERVISOR Work Phone: [facility] 08-26-2022 10:03-0500 Body weight 61.24 kg Urvashi Dahlhausen ELECTRONICS DETAIL DRAFTSPERSON.[employer] PRESS SUPERVISOR Work Phone: [facility] 08-26-2022 10:03-0500 Diastolic blood pressure 96 mm[Hg] Urvashi Dahlhausen ELECTRONICS DETAIL DRAFTSPERSON.EX[employer]US[employer] PRESS SUPERVISOR Work Phone: [facility] 08-26-2022 10:03-0500 Heart rate 74 /min Urvashi Dahlhausen ELECTRONICS DETAIL DRAFTSPERSON.EXTR[employer] PRESS SUPERVISOR Work Phone: [facility] 08-26-2022 10:03-0500 Respiratory rate 18 /min Urvashi Dahlhausen ELECTRONICS DETAIL DRAFTSPERSON.EX[employer] PRESS SUPERVISOR Work Phone: [facility] 08-26-2022 10:03-0500 SaO2% (BldA) [Mass fraction] 97 % Urvashi Dahlhausen ELECTRONICS DETAIL DRAFTSPERSON.EXTRUS[employer] PRESS SUPERVISOR Work Phone: [facility] 08-26-2022 10:03-0500 Systolic blood pressure 129 mm[Hg] Urvashi Dahlhausen ELECTRONICS DETAIL DRAFTSPERSON.EX[employer]US[employer] PRESS SUPERVISOR Work Phone: [facility] 08-16-2022 10:58-0500 Body weight 64.41 kg NA Palomares PA-C Work Phone: [facility] 08-16-2022 10:58-0500 Diastolic blood pressure 80 mm[Hg] NA Palomares PA-C Work Phone: [facility] 08-16-2022 10:58-0500 Heart rate 74 /min NA Palomares PA-C Work Phone: [facility] 08-16-2022 10:58-0500 Respiratory rate 18 /min NA Palomares PA-C Work Phone: [facility] 08-16-2022 10:58-0500 SaO2% (BldA) [Mass fraction] 97 % NA Palomares PA-C Work Phone: [facility] 08-16-2022 10:58-0500 Systolic blood pressure 148 mm[Hg] NA Palomares PA-C Work Phone: [facility] 06-03-2022 11:10-0500 Heart rate 80 /min Shria [place]field ELECTRONICS DETAIL DRAFTSPERSON.EXTRUS[employer] PRESS SUPERVISOR Work Phone: [facility] 06-03-2022 11:10-0500 Respiratory rate 16 /min Shira [place] ELECTRONICS DETAIL DRAFTSPERSON.EXTRUS[employer] PRESS SUPERVISOR Work Phone: [facility] 06-03-2022 11:10-0500 SaO2% (BldA) [Mass fraction] 95 % Shira [place]field ELECTRONICS DETAIL DRAFTSPERSON.EXTRUS[employer] PRESS SUPERVISOR Work Phone: [facility] 05-25-2022 14:53-0500 Body weight 67.77 kg Jenifer Yeager ELECTRONICS DETAIL DRAFTSPERSON.CNM Work Phone: [facility] 05-25-2022 14:53-0500 Diastolic blood pressure 64 mm[Hg] Jenifer Yeager ELECTRONICS DETAIL DRAFTSPERSON.CNM Work Phone: [facility] 05-25-2022 14:53-0500 Systolic blood pressure 112 mm[Hg] Jenifer Yeager ELECTRONICS DETAIL DRAFTSPERSON.CNM Work Phone: [facility] 05-14-2022 10:53-0500 Body weight 65.77 kg NA Palomares PA-C Work Phone: [facility] 05-14-2022 10:53-0500 Diastolic blood pressure 78 mm[Hg] NA Palomares PA-C Work Phone: [facility] 05-14-2022 10:53-0500 Heart rate 93 /min NA Palomares PA-C Work Phone: [facility] 05-14-2022 10:53-0500 SaO2% (BldA) [Mass fraction] 97 % NA Palomares PA-C Work Phone: [facility] 05-14-2022 10:53-0500 Systolic blood pressure 148 mm[Hg] NA Palomraes PA-C Work Phone: [facility] 05-07-2022 14:35-0500 Body temperature 97.81 [degF] Memo Leahy Jr., MD Work Phone: [facility] 05-07-2022 14:35-0500 Body weight 68.04 kg Memo Leahy Jr., MD Work Phone: [facility] 05-07-2022 14:35-0500 Diastolic blood pressure 62 mm[Hg] Memo Leahy Jr., MD Work Phone: [facility] 05-07-2022 14:35-0500 Heart rate 80 /min Memo Leahy Jr., MD Work Phone: [facility] 05-07-2022 14:35-0500 Respiratory rate 18 /min Memo Leahy Jr., MD Work Phone: [facility] 05-07-2022 14:35-0500 SaO2% (BldA) [Mass fraction] 97 % Memo Leahy Jr., MD Work Phone: [facility] 05-07-2022 14:35-0500 Systolic blood pressure 118 mm[Hg] Memo Leahy Jr., MD Work Phone: [facility] 04-01-2022 08:34-0400 Body weight 73.48 kg NA Palomares PA-C Work Phone: [facility] 04-01-2022 08:34-0400 Diastolic blood pressure 78 mm[Hg] NA Palomares PA-C Work Phone: [facility] 04-01-2022 08:34-0400 Heart rate 69 /min NA Palomares PA-C Work Phone: [facility] 04-01-2022 08:34-0400 Respiratory rate 20 /min NA Palomares PA-C Work Phone: [facility] 04-01-2022 08:34-0400 SaO2% (BldA) [Mass fraction] 96 % NA Palomares PA-C Work Phone: [facility] 04-01-2022 08:34-0400 Systolic blood pressure 128 mm[Hg] NA Palomares PA-C Work Phone: [facility] 03-17-2022 10:57-0400 Body height 175.3 cm Sarahi Whitlock MD Work Phone: [facility] 03-17-2022 10:57-0400 Body weight 74.39 kg Sarahi Whitlock MD Work Phone: [facility] 03-17-2022 10:57-0400 Diastolic blood pressure 84 mm[Hg] Sarahi Whitlock MD Work Phone: [facility] 03-17-2022 10:57-0400 Heart rate 60 /min Sarahi Whitlock MD Work Phone: [facility] 03-17-2022 10:57-0400 Systolic blood pressure 122 mm[Hg] Sarahi Whitlock MD Work Phone: [facility] 02-25-2022 14:25-0400 Body temperature 98.6 [degF] NA Palomares PA-C Work Phone: [facility] 02-25-2022 14:25-0400 Body weight 74.39 kg NA Palomares PA-C Work Phone: [facility] 02-25-2022 14:25-0400 Diastolic blood pressure 72 mm[Hg] NA Palomares PA-C Work Phone: [facility] 02-25-2022 14:25-0400 Heart rate 90 /min NA Palomares PA-C Work Phone: [facility] 02-25-2022 14:25-0400 Respiratory rate 16 /min NA Palomares PA-C Work Phone: [facility] 02-25-2022 14:25-0400 SaO2% (BldA) [Mass fraction] 96 % NA Palomares PA-C Work Phone: [facility] 02-25-2022 14:25-0400 Systolic blood pressure 110 mm[Hg] NA Palomares PA-C Work Phone: [facility] 02-24-2022 10:45-0400 Diastolic blood pressure 61 mm[Hg] Deloris Troy MD Work Phone: [facility] 02-24-2022 10:45-0400 Systolic blood pressure 87 mm[Hg] Deloris Troy MD Work Phone: [facility] 02-24-2022 10:28-0400 Body temperature 99.19 [degF] Deloris Troy MD Work Phone: [facility] 02-24-2022 10:28-0400 Respiratory rate 16 /min Deloris Troy MD Work Phone: [facility] 02-24-2022 10:28-0400 SaO2% (BldA) [Mass fraction] 97 % Deloris Troy MD Work Phone: [facility] 02-24-2022 09:41-0400 Heart rate 98 /min Deloris Troy MD Work Phone: [facility] 02-11-2022 13:19-0400 Diastolic blood pressure 64 mm[Hg] NA Palomares PA-C Work Phone: [facility] 02-11-2022 13:19-0400 Systolic blood pressure 100 mm[Hg] NA Palomares PA-C Work Phone: [facility] 02-11-2022 10:06-0400 Body weight 75.3 kg NA Palomares PA-C Work Phone: [facility] 01-18-2022 11:10-0400 Body weight 80.29 kg Nguyen Tree ELECTRONICS DETAIL DRAFTSPERSON.EXTRUS[employer] PRESS SUPERVISOR Work Phone: [facility] 01-18-2022 11:10-0400 Diastolic blood pressure 78 mm[Hg] Nguyen [place] ELECTRONICS DETAIL DRAFTSPERSON.EXTRUSION PRESS SUPERVISOR Work Phone: [facility] 01-18-2022 11:10-0400 Systolic blood pressure 112 mm[Hg] Nguyen [place] ELECTRONICS DETAIL DRAFTSPERSON.EXTRUSION PRESS SUPERVISOR Work Phone: [facility] 12-15-2021 08:23-0400 Diastolic blood pressure 82 mm[Hg] Blaine Ann MD Work Phone: [facility] 12-15-2021 08:23-0400 Heart rate 75 /min Blaine Ann MD Work Phone: [facility] 12-15-2021 08:23-0400 SaO2% (BldA) [Mass fraction] 96 % Blaine Ann MD Work Phone: [facility] 12-15-2021 08:23-0400 Systolic blood pressure 134 mm[Hg] Blaine Ann MD Work Phone: [facility] 12-07-2021 11:32-0400 Body height 175.3 cm Denice Gr ELECTRONICS DETAIL DRAFTSPERSON.EXTRUS[employer] PRESS SUPERVISOR Work Phone: [facility] 12-07-2021 11:32-0400 Body weight 83.92 kg Denice Gr ELECTRONICS DETAIL DRAFTSPERSON.EXTRUS[employer] PRESS SUPERVISOR Work Phone: [facility] 11-27-2021 15:05-0400 Diastolic blood pressure 87 mm[Hg] Josué Blevins MD Work Phone: [facility] 11-27-2021 15:05-0400 Heart rate 72 /min Josué Blevins MD Work Phone: [facility] 11-27-2021 15:05-0400 Respiratory rate 16 /min Josué Blevins MD Work Phone: [facility] 11-27-2021 15:05-0400 SaO2% (BldA) [Mass fraction] 94 % Josué Blevins MD Work Phone: [facility] 11-27-2021 15:05-0400 Systolic blood pressure 127 mm[Hg] Josué Blevins MD Work Phone: [facility] 11-27-2021 14:48-0400 Body temperature 98.01 [degF] Josué Blevins MD Work Phone: [facility] 11-27-2021 14:19-0400 Body height 175.3 cm Josué Blevins MD Work Phone: [facility] 11-27-2021 14:19-0400 Body weight 83.92 kg Josué Blevins MD Work Phone: [facility] 11-23-2021 09:17-0400 Body height 175.3 cm Josué Blevins MD Work Phone: [facility] 11-23-2021 09:17-0400 Body weight 83.92 kg Josué Blevins MD Work Phone: [facility] 11-23-2021 09:17-0400 Diastolic blood pressure 78 mm[Hg] Josué Blevins MD Work Phone: [facility] 11-23-2021 09:17-0400 Heart rate 79 /min Josué Blevins MD Work Phone: [facility] 11-23-2021 09:17-0400 Systolic blood pressure 108 mm[Hg] Josué Blevins MD Work Phone: [facility] 11-12-2021 14:13-0400 Body weight 85.73 kg NA Palomares PA-C Work Phone: [facility] 11-12-2021 14:13-0400 Diastolic blood pressure 70 mm[Hg] NA Palomares PA-C Work Phone: [facility] 11-12-2021 14:13-0400 Heart rate 74 /min NA Palomares PA-C Work Phone: [facility] 11-12-2021 14:13-0400 Respiratory rate 16 /min NA Palomares PA-C Work Phone: [facility] 11-12-2021 14:13-0400 SaO2% (BldA) [Mass fraction] 94 % NA Palomares PA-C Work Phone: [facility] 11-12-2021 14:13-0400 Systolic blood pressure 112 mm[Hg] NA Palomares PA-C Work Phone: [facility] Encounters Encounter Date Encounter Type Care Provider Facility Start: 08-09-2023 Telephone encounter Jaimee Bolanos Palomares PA-C Work Phone: [facility] Procedures Date Procedure Procedure Detail Performing Clinician Start: 01-26-2023 Mri brain brain stem w/o contrast material rUvashi Hughes APRN.EXTRUSION PRESS SUPERVISOR Work Phone: Start: 09-01-2022 Us breast uni [...] Start: 11-12-2021 Adult depression scr eening assessment ASHLEY aPlomares PA-C Work Phone: Start: 11-10-2021 End: 11-10-2021 Digital breast tomosynthesis bilateral M Cici Jelani SHIN Work Phone: Start: 10-01-2021 End: 10-01-2021 Screening mammography bi 2-view breast inc cad Bulk Order Provider Start: 05-28-2019 Mammography NA Jelani SHIN Work Phone: Start: 02-13-2019 Adult depression scr eening assessment NA Jelani HURTADO-Juan Work Phone: Start: 02-13-2019 Lipid 1996 panel - S cintia or Plasma NA Jelani HURTADO-Juan Work Phone: Start: 03-10-2016 Colonoscopy NA Jelani SHIN Work Phone: Start: 10-02-2014 Colonoscopy Denice darling ELECTRONICS DETAIL DRAFTSPERSON.EXTRUSION PRESS SUPERVISOR Work Phone: Plan of Treatment Date Care Activity Detail Author Start: 11-13-2031 Urine microalbumin profile [facility] Start: 11-27-2026 Colonoscopy COLONOSCOPY [facility] Start: 11-27-2026 COLORECTAL CANCER SCREENING COLORECTAL CANCER SCREENING [facility] Start: 11-27-2026 Screening for malignant neoplasm of colon [facility] Start: 10-20-2025 DIABETES SCREEN DIABETES SCREEN [facility] Start: 10-20-2025 Diabetes Screening Diabetes Screening [facility] Start: 03-09-2025 DIABETES SCREEN DIABETES SCREEN [facility] Start: 11-12-2024 DIABETES SCREEN DIABETES SCREEN [facility] Start: 08-09-2024 Annual PCP Team Chronic Disease Visit Annual PCP Team Chronic Disease Visit [facility] Start: 08-09-2024 BP Controlled (<130/80) BP Controlled (<130/80) [facility] Start: 07-22-2024 Annual PCP Team Chronic Disease Visit Annual PCP Team Chronic Disease Visit [facility] Start: 05-10-2024 Annual PCP Team Chronic Disease Visit Annual PCP Team Chronic Disease Visit [facility] Start: 05-10-2024 BP Controlled (<130/80) BP Controlled (<130/80) [facility] Start: 02-14-2024 Lipid 1996 panel - Serum or Plasma Lipid Screening [facility] Start: 02-14-2024 Lipid panel Lipid Screening [facility] Start: 02-14-2024 LIPID SCREEN LIPID SCREEN [facility] Start: 02-10-2024 BP CONTROLLED (<130/80) BP CONTROLLED (<130/80) [facility] Start: 01-05-2024 ANNUAL PCP TEAM CHRONIC DISEASE VISIT ANNUAL PCP TEAM CHRONIC DISEASE VISIT [facility] Start: 12-10-2023 ANNUAL PCP TEAM CHRONIC DISEASE VISIT ANNUAL PCP TEAM CHRONIC DISEASE VISIT [facility] Start: 11-09-2023 ANNUAL PCP TEAM CHRONIC DISEASE VISIT ANNUAL PCP TEAM CHRONIC DISEASE VISIT [facility] Start: 09-17-2023 ANNUAL PCP TEAM CHRONIC DISEASE VISIT ANNUAL PCP TEAM CHRONIC DISEASE VISIT [facility] Start: 09-02-2023 Mammography [facility] Start: 09-02-2023 Screening for malignant neoplasm of breast Mammogram Screening [facility] Start: 08-16-2023 ANNUAL PCP TEAM CHRONIC DISEASE VISIT ANNUAL PCP TEAM CHRONIC DISEASE VISIT [facility] Start: 08-10-2023 End: 11-09-2023 CBC W Auto Differential panel - Blood CBC + DIFF Lab Routine Acute renal injury stage 3a (HCC) Primary hypertension Expected: 08/10/2023, Expires: 11/09/2023 [facility] Work Phone: Immunizations Immunization Date Immunization Notes Care Provider Ruth moses 04-01-2022 COVID-19 booster vaccine, age 12+ yr, bivalent ([employer]) NA Palomares PA-C Work Phone: [facility] 04-01-2022 influenza, injectabl e, quadrivalent, contains preservative NA Palomares PA-C Work Phone: [facility] 04-01-2022 influenza virus vacc ine, unspecified formulation NA Palomares PA-C Work Phone: [facility] 11-12-2021 pneumococcal Conjuga te, unspecified formulation NA Palomares PA-C Work Phone: [facility] Work Phone: 11-12-2021 COVID-19 vaccine, ag e 12+ yr (PFIZER-BIONTECH - THORNTON TOP) NA Palomares PA-C Work Phone: [facility] 11-12-2021 pneumococcal (PCV20) vaccine, 20 valent (PREVNAR 20) NA Palomares PA-C Work Phone: [facility] 11-12-2021 tetanus toxoid, redu ricky diphtheria toxoid, and acellular pertussis vaccine, adsorbed NA Palomares PA-C Work Phone: [facility] 11-12-2021 zoster vaccine recombinant NA Palomares PA-C Work Phone: [facility] 01-23-2021 COVID-19 vaccine (LEROY) NA Palomares PA-C Work Phone: [facility] 05-09-2019 influenza, seasonal, injectable NA Palomares PA-C Work Phone: [facility] 03-13-2018 influenza, injectabl e, quadrivalent, contains preservative NA Palomares PA-C Work Phone: [facility] Work Phone: 05-05-2017 influenza, injectabl e, quadrivalent, contains preservative NA Palomares PA-C Work Phone: [facility] Work Phone: 04-30-2016 influenza, seasonal, injectable, preservative free NA Palomares PA-C Work Phone: [facility] 02-27-2016 influenza, injectabl e, quadrivalent, contains preservative NA Palomares PA-C Work Phone: [facility] 02-26-2016 influenza, seasonal, injectable NA Palomares PA-C Work Phone: [facility] 06-04-2015 influenza, injectabl e, quadrivalent, contains preservative NA Palomares PA-C Work Phone: [facility] 06-04-2015 influenza, seasonal, injectable NA Palomares PA-C Work Phone: [facility] 06-03-2014 influenza, seasonal, injectable NA Palomares PA-C Work Phone: [facility] Work Phone: 05-02-2014 pneumococcal polysaccharide vaccine, 23 valent NA Palomares PA-C Work Phone: [facility] Work Phone: 06-20-2006 TD(adult) unspecifie d formulation ASHLEY Palomares PA-C Work Phone: [facility] 06-20-2006 tetanus and diphther ia toxoids, adsorbed, preservative free, for adult use (2 Lf of tetanus toxoid and 2 Lf of diphtheria toxoid) ASHLEY Palomares PA-C Work Phone: [facility] Payers Date Payer Category Payer Self-pay 2022 Medicaid [id number] 2013 Medicaid [facility] MEDIC AID [facility] MEDICAID [id number] 2013-Present [phone] [address] [place] [address] Medicaid [id number] 2013 Medicaid [id number] 2013 Unknown [id number] 1968 Unknown [id number] 1970 Unknown [id number] Social History Date Type Detail Facility Start: 10-14-2016 End: 10-14-2022 Tobacco smoking status NMIS Smokes tobacco daily [facility] History of tobacco use Cigarette Smoker C [facility] Start: 10-14-2016 End: 07-02-2022 Cigarettes smoked current (pack per day) - Reported 0.75 [facility] Start: 10-14-2016 End: 10-14-2022 Tobacco use and exposure Smokeless tobacco non-user [facility] Start: 06-18-2021 End: 08-27-2021 Alcohol intake Current drinker of alcohol (finding) [facility] Start: 07-23-2021 History SDOH Alcohol Frequency 1 [facility] Start: 07-23-2021 History SDOH Alcohol Std Drinks 5 [facility] Start: 07-23-2021 History SDOH Social Connections Get Together 2 [facility] Start: 07-23-2021 History SDOH Social Connections Meetings 3 [facility] Start: 07-23-2021 History SDOH Stress 4 [facility] Start: 09-29-2015 End: 02-11-2022 Tobacco Comment started smoking 12yr .5 to .75 of pack daily-in process of quitting as of 09/29/15 [facility] Start: 1970 Sex Assigned At Female [facility] Start: 08-17-2021 End: 05-07-2022 Exposure to SARS-CoV-2 (event) Not sure [facility] Start: 11-23-2021 End: 08-09-2023 Alcohol intake Ex-drinker (finding) [facility] Start: 02-20-2022 End: 03-02-2022 Exposure to SARS-CoV-2 (event) Unable to assess [facility] Start: 07-29-2022 Tobacco Comment started smoking 12yr, 3 cigs daily [facility] Start: 07-23-2021 End: 07-02-2022 Social connection and isolation panel [facility] Frequency of Communication with Friends and Family Not on file [facility] Work Phone: Do you belong to any clubs or organizations such as religion groups, unions, fraternal or athletic groups, or school groups? Yes [facility] Are you now , , , , never or living with a partner? [facility] How often to you hav e a drink containing alcohol? Never [facility] How many standard dr inks containing alcohol do you have on a typical day? 10 or more [facility] How hard is it for y ou to pay for the very basics like food, housing, medical care, and heating Hard [facility] Do you feel stress - tense, restless, nervous, or anxious, or unable to sleep at night because your mind is troubled all the time - these days [OSQ] Rather much [facility] (I/We) worried whejameson er (my/our) food would run out before (I/we) got money to buy more. Sometimes true [facility] The food that (I/we) bought just didn't last, and (I/we) didn't have money to get more. Never true [facility] At any time in the p ast 12 months, were you homeless or living in retirement [including now]? No [facility] Start: 03-05-2021 Gender identity Identifies as female gender (finding) [facility] Start: 03-05-2021 Sexual orientation Heterosexual (finding) [facility] Clinical Notes 08-26-2020 to 08-10-2023 Note Date & Type Note Facility 08-10-2023 Note HNO ID: [id number] Author: ?, ?, ? Service: ? Author Type: ? Type: Progress Notes Filed: 08/10/2023 13:45 Note Text: POPULATION HEALTH NAVIGATION OUTREACH Action/[place] Support: Called pt to schedule an appt in Pain Management. Phone was answered and then someone hung up Patient Identified by Name and : NO Outreach Outcome/Action Unable to reach patient: Someone answered and then hung up after I introduced myself Did you use a PCP flex slot to schedule this appointment? No Reason for Outreach Care Gap or Scheduling/Wellness visits Payer: Payor: [facility] MEDICAID / Plan: [employer] MEDICAID / Product Type: Medicaid / Care [...] Mammogram Screening due on 09/02/2023 Navigation Signature: Leyda Izaguirre August 10, 2023 1:44 PM [facility] 08-10-2023 Note Patient Outreach (LANA ALMANZA) MARILUZ GARCIA ([id number]) 1970 F Date Time Provider Department 08/10/23 NO PCP NETNAV During your visit today, we recorded the following information about you: Leyda Izaguirre 08/10/2023 1:45 PM Signed POPULATION HEALTH NAVIGATION OUTREACH Action/[facility] Support: Called pt to schedule an [...] Care Gap or Scheduling/Wellness visits Payer: Payor: [facility] MEDICAID / Plan: [facility] MEDICAID / Product Type: Medicaid / [...] Mammogram Screening due on 09/02/2023 Navigation Signature: Leyda Izaguirre August 10, 2023 1:44 PM Allergies As [...] of lung (HCC) [J43.9] Tobacco use disorder [F (more content not included)... [facility] documented in this encounter [facility]02-20-2024 Miscellaneous Notes* Telephone Encounter - Luis Mascorro LPN - 08/09/2023 5:04 PM EST Phone call to pt, notified of provider message. She states she did not know she couldn't take both ibuprofen and meloxicam. She was only taking meloxicam until she received script for Ibuprofen today. She is going to stop meloxicam and see the Ibuprofen works for her. Luis Mascorro LPN * Telephone Encounter - Jaimee Palomares PA-C - 08/09/2023 4:56 PM EST Please advise she cannot use meloxicam (from [facility]) and ibuprofen (from me) together. If one or the other works better, please let me and [facility] ortho know. Thanks, Faustino Palomares PA-C * Telephone Encounter - Fadumo Romero RN - 08/09/2023 3:43 PM EST YAYA Ramirez with [facility] calling to update Faustino Palomares that due to recent added medications to pt's medication list, duplication therapy is noted by their program. James states this must be reported and noted by pt's PCP, per protocol. James states that duplication therapy is triggered due to the Ibuprofen order and Meloxicam order, as well as due to Acetaminophen order and Percocet order. Fadumo Romero RN documented [facility] NoteHNO ID: [id number] Author: Jaimee PALOMARES PA-C Service: ? Author Type: Physician Superintendent Institution Type: Progress Notes Filed: 08/10/2023 06:22 Note [...] regimen Found scanned records from [facility]. Medication reconciliation shows she is on Meloxicam 7.5mg with hx mild renal injury acknowledge by Dr. Skinner Received message from [facility] she is listed still on [...] female who presents here today for Hospital Discharge/custodial follow up Patient here for hospital follow-up. Admitted on June 27, 2023 to [facility]. Discharged July 03, 2023. She went to [place] from July 03 until yesterday Jul 21, 2023. I do not have any records from [place]. Was admitted for recent cervical surgery, pain, weakness. Patient had a C3-5 anterior cervical discectomy with fusion and plate instrument by Dr. Chance in late April 2023. Suffered fall at [facility] in May, fractured neck. Was hospitalized from [...] late May. Was not getting it at custodial/hospital. She has a refill of it sent [...] Dr. Staley. hospital discharge follow up Facility: [facility] Date of admission: 06/17/2023 Date of discharge: [...] MiraLAX, senna and dulcolax suppository as needed [id number]. Discussed with correctional case manager. Meloxicam decrease (more content not included)...[facility] 08-09-2023 History of Present illness Narrative* Jaimee Palomares PA-C - 08/09/2023 11:40 AM EST 53 year old female with c/o here [...] with stool regimen Found scanned records from [facility]. Medication reconciliation shows she is on Meloxicam 7.5mg with hx mild renal injury acknowledge by Dr. Skinner Received message from [facility] she is listed still on [...] female who presents here today for Hospital Discharge/custodial follow up Patient here for hospital follow-up. Admitted on June 27, 2023 to [facility]. Discharged July 03, 2023. She went to [place] from July 03 until yesterday Jul 21, 2023. I do not have any records from [place]. Was admitted for recent cervical surgery, pain, weakness. Patienthad a C3-5 anterior cervical discectomy with fusion and plate instrument by Dr. Chance in late April 2023. Suffered fall at [facility] in May, fractured neck. Was hospitalized from [...] late May. Was not getting it at custodial/hospital. She has a refill of it sent [...] Dr. Staley. hospital discharge follow up Facility: [facility] Date of admission: 06/17/2023 Date of discharge: 06/21/2023 Consultations: 06/17/2023 orthopedic: Dr.Chirag Skinner Discharge diagnoses: 1. Closed C3 fracture 2. Status post cervical spinal fusion arthrodesis status Hospital course/Plan: 1. Worsening C-spine pain concern for hardware malfunction with recent C3-[address], [address] C-spine demonstrated postsurgical changes C3-C5 with slight increase separation of hardware fromvertebral body at C2-3 level, mild prevertebral edema at C4-C6 slightly increased compared to priorx-rays. General weakness likely due to is not [...] MiraLAX, senna and dulcolax suppository as needed [id number]. Discussed with correctional case manager. Meloxicam decreased to 7.5 mg daily. Patient [...] plate and screws and interbody devices from C3- C5 with approximately 5 mm separation of the [...] 27-CRE 1.14, EGFR 53, BUN/creatinine ratio 23.7, lacticacid was normal at 1.5 06/17/2023: CBC WNL except RBC 4.04- Hgb 11.9-HCT 36.3 Chemistries: WNL except chloride 112- Ca 8.2 Urinalysis WNL except urine protein 15 H micro normal. Medication reconciliation: New medications: PEG 3350 17 g powder: 17 g p.o. twice daily Bisacodyl 10 mg suppository [place], as needed Meloxicam 15 m.5 mg p.o. [...] Hospital discharge follow-up Hospital discharge summary: Facility: [facility] Date of admission: 05/17/2023 Date of discharge: 05/23/2023 Discharge diagnoses: 1. C3-5 spondylolisthesis with stenosis, cord compression, cord signal changes- status post C3-5 anterior cervical discectomy and fusion [...] care 05/15/2020 HOSPITAL/ER FOLLOW UP Which facility: [facility] Dates of visit: 05/10-05/13/2020 Preadmission evaluation:ER with right-sided abdominal pain over 2-1/2 hours, [...] of admission 05/01/2021 Date of discharge: Facility: [facility] 05/01/2021 presented to the emergency room with acute alcohol intoxication, initial alcohol level 7-8. Acknowledges over the last 5 months drinking 15 packs a day at 8% alcohol (marcin samaniego). Vital signs 96.6 [id number]/73-98%. Appearance was no acute distress. WBC 7.9-Hgb 13.8-HCT 39 Encounter for support and coordination of transition of care 05/05/2022 05/05/2022 patient called squad, transported to [facility] with lightheadedness andmultiple syncopal episodes one of them resulting in injury to her right foot. GERD (gastroesophageal reflux disease) Hyperglycemia Hypertension Lung abscess (HCC) saw Néstor Li and Dr. Zarate. Major depression Mild protein-calorie malnutrition (HCC) 08/26/2020 Obesity PE (pulmonary thromboembolism) ([facility]) PTSD (post-traumatic stress disorder) Snoring [...] HX 1989' LAMINECTOMY,CERVICAL 06/27/2023 Dr. Kendall Skinner, [facility]; C3-C5 posterior decompression laminectomy, posterior spinal fusion LAPAROSCOPY SURG CHOLECYSTECTOMY 05/12/2020 NEUROPLASTY &/TRANSPOS MEDIAN [...] Pain With Left-Sided Sciatica Pe (Pulmonary Thromboembolism) ([facility]) Hyperglycemia Stasis Edema Right Lumbar Radiculopathy Obesity, Class III, BMI >= 40 (morbid obesity) E66.01 Delusional Disorder ([facility]) Chronic Low Back Pain With Sciatica Abnormal Echocardiogram Chronic Left-Sided Low Back Pain With Sciatica Copd (Chronic Obstructive Pulmonary Disease) With Chronic Bronchitis Positive Urine Drug Screen Lumbar Spondylosis Cervical Spondylosis Without Myelopathy Encounter for Support and Coordination of Transition of Care Other Chest Pain Stress Incontinence Chronic Active Hepatitis C ([facility]) History of Colonic Polyps Traumatic Closed Nondisp [...] 1 tablet by mouth once daily. 30 tablet3 ibuprofen (MOTRIN) 800 mg tablet Take 1 tablet by mouth every 8 hours as needed for pain. Take withfood. 30 tablet 1 cyanocobalamin (VITAMIN B-12) 1,000 [...] 2 Puffs as instructed every 4 hours asneeded for wheezing/shortness of breath. 3 Each 3 VITAMIN C 500 mg tablet albuterol (PROVENTIL) 2.5 mg /3 mL (0.083 %) nebulizer solution Use 3 mL via nebulizer every 4 hours as needed for wheezing/shortness of breath. Use over 5- 15minutes. 120 mL 5 Nebulizers Use as directed. [...] kg (202 lb) SpO2 96% BMI 33.61 kg/m Pleasant adult woman who has put on [...] Jaimee Palomares PA-C - URINALYSIS, WITH MICROSCOPIC Jaimee Palomares PA-C documented [facility] Miscellaneous Notes* Telephone Encounter - Ling Huang LPN - 08/04/2023 10:44 AM EST Home Health was made aware of patient history and that this office will NOT be providing any pain medication to patient. They are going to make nurse reproductive healthcare assistant know and help her get set back up with pain management. * Telephone Encounter - Jaimee Palomaers PA-C - 08/04/2023 8:00 AM EST Consult to pain management placed. She cannot be trusted with narcotics and would have to come in anyway. Closed nondisplaced fracture of third cervical vertebra with routine healing, unspecified fracture morphology, subsequent encounter (primary encounter diagnosis) Faustino Strickland PA-C * Telephone Encounter - Kathie Goodrich RN - 08/03/2023 12:14 PM EST Mary Carmen [facility] nurse calling to update provider. She saw pt yesterday and pt was stating her pain level was a 9/10 and states the pain was in her neck. Pt was asking for a refill on her Oxycodone. Shetold Mary Carmen that she got 10 Oxy when she left the custodial. Pt also states to Mary Carmen that she is having financial difficulties and cannot even afford to buy OTC pain meds. Mary Carmen did notify the Milling/Polishing Operator regarding this. Pt's BP yesterday was 126/72. [...] is better today about a 7/10 and backpain is about a 7-8/10. Pt states back pain is not as bad as Tuesday and Tuesday. Taking Lyrica for pain TID as prescribed and pt states it don't touch the pain . States pain gets severe in left leg with sciatica type pain. Sometimes hard to walk and will bring her to tears. Pt was prescribed Oxycodone in the custodial but took the last pill last week. Pt wondering if that can be prescribed again by Faustino Palomares and if so, pt uses [facility]. Pt has an appt with Faustino Palomares on Tuesday. Also please call [facility] [employer] at [phone] if any updates for them. * Telephone Encounter - Estrella Lomeli LPN - 08/01/2023 4:29 PM EST Left message for Lyly [facility] to return call. * Telephone Encounter - Jaimee Palomares PA-C - 08/01/2023 4:17 PM EST Noted. BP here has been controlled, likely r/t pain response. Recheck if possible weekly x 2 and report. I have her listed on oxycodone. Thanks, Faustino Palomares PA-C * Telephone Encounter - Hanna Mares RN - 08/01/2023 11:00 AM EST Kamille with [facility] calls to let provider know that today at visit patient's BP was elevated. On arrival, 143/107 HR 72 On leaving, 139/101 HR 71 Kamille reports that patient complaints of left sciatic nerve pain 02/27 but uncertain if she took anything for the pain. Denies any other symptoms. Hanna Mares RN documented in [facility] Miscellaneous Notes* Telephone Encounter - Shruthi Shaver LPN - 08/04/2023 9:29 AM EST Patient has been identified by name and date of : Yes, [facility] phones for refill(s): Requested Prescriptions Pending Prescriptions Disp Refills omeprazole (PRILOSEC) 20 mg capsule 30 capsule 5 Sig: Take 1 capsule by mouth once daily. Cholecalciferol, Vitamin D3, (VITAMIN D) 25 mcg (1,000 unit) cap 90 capsule 1 Sig: Take 1 capsule by mouth once daily. Date of last office visit in primary care: 07/22/2023 Date of next office visit in primary care: 08/09/2023 Please advise. Thank you. Shruthi Shaver LPN. documented in this encounterOhiohealth Pickerington [facility]02-12-2024 Miscellaneous Notes* Telephone Encounter - Shira Stewart RN - 08/01/2023 11:13 AM EST Patient call in for back pain since 6 weeks, worse since she broke neck. Patient's blood pressure also has been elevated, see telephone note from home health. Patient is asymptomatic for blood pressure elevation. Nurse Triage assessment completed with protocol recommending for disposition of see PCP in 2 weeks.Patient is scheduled to see Faustino on 08/09/2023. Care advice reviewed with patient, patient stated understanding. Patient advised to contact office or seek evaluation in urgent care or ER if symptoms persist or gets worse. Reason for Disposition Back pain is a chronic symptom (recurrent or ongoing AND present > 4 weeks) Answer Assessment - Initial Assessment Questions 1. ONSET: 6 Weeks, since she fell and broke her neck 2. LOCATION: Lower Back Pain 3. SEVERITY: Patient rates pain a 9/9.5 out of 10. Patient states that back hurts really bad. Patient states that it has been bringing her to tears. 4. PATTERN: Constant 5. RADIATION: Shoots down to left leg and into foot. Patient states that it takes away the use of her left leg. Patient states that she is afraid that she will fall every time she stands up. 6. CAUSE: Patient thinks that it is a pinched nerve in back 7. BACK OVERUSE: Denies 8. MEDICINES: Has been taking Lyrica, Baclofen; Patient is out of tylenol and Ibuprofen 9. NEUROLOGIC SYMPTOMS: Bilateral legs and hands are numb. Left leg is worse than right leg. No more than usual loss of bowel and bladder control 10. OTHER SYMPTOMS: Denies; states not that she has noticed. Protocols used: Back [id number] documented in this encounterOhiohealth Pickerington [facility] Hospital02-07-2024 Miscellaneous Notes* Telephone Encounter - Suzie Powell - 07/27/2023 3:44 PM EST Faxed. Suzie Powell * Telephone Encounter - Memo Huber MD - 07/27/2023 1:40 PM EST Ok written * Telephone Encounter - Laina Orellana RN - 07/27/2023 1:14 PM EST ALEKSANDER Poe @ [facility] calling to request order for tub transfer bench be faxed to [facility] . She states OT is recommending this for the patient. Laina Orellana RN documented in this encounterOhiohealth Pickerington [facility] Hospital02-07-2024 Miscellaneous Notes* Telephone Encounter - Memo Huber MD - 07/27/2023 12:28 PM EST noted * Telephone Encounter - Maribell Baltazar LPN - 07/27/2023 11:22 AM EST Bailey from [facility] Home Health calling with OT plan of care, 1 visit this week, then 2 visits weekly for2 weeks, then 1 visit weekly for 1 week. Working ion ADL's and home exercise program. BP at 1045 amwas 142/97 pulse 99 patient had told her she was out of one of her bp medications. Bailey does not require a call back. documented in this encounterOhiohealth Pickerington [facility] Hospital02-02-2024 Miscellaneous Notes* Telephone Encounter - Jaimee Foster RN - 07/22/2023 2:40 PM EST Urvashi- [facility] nursing calling in POC: nursing will see pt 1 x this week, then 2 x's next week, then 1 x week for 3 weeks. SW will see pt for community resources, AUTO CLEANER will see pt 1 x week for 2 weeks, to help with shower. Pt reports neck pain 01/27, but did not display pain: no grimacing, moved neck normally , no rubbing neck with movement. Pt tells Urvashi, it will be fine once she gets her pain meds- being delivered from [place] today. No call back needed. documented in this encounterOhiohealth Pickerington Methodist Hospital02-02-2024 NoteHNO ID: [id number] Author: MARVIN LEAVITT APRN.EXTRUSION PRESS SUPERVISOR Service: ? Author Type: Nurse Practitioner Type: Progress Notes Filed: 07/22/2023 08:32 Note Text: Chief Complaint Patient presents with: Follow Up: Follow up from [facility] Mariluz Garcia is a 53 year old female who presents here today for Hospital Discharge/custodial follow up Patient here for hospital follow-up. Admitted on June 27, 2023 to [facility]. Discharged July 03, 2023. She went to [place] from July 03 until yesterday Jul 21, 2023. I do not have any records from [place]. Was admitted for recent cervical surgery, pain, weakness. Patient had a C3-5 anterior cervical discectomy with fusion and plate instrument by Dr. Chance in late April 2023. Suffered fall at [facility] in May, fractured neck. Was hospitalized from [...] late May. Was not getting it at custodial/hospital. She has a refill of it sent [...] murmur, gallop, or rubs. No ectopy. Musculoskeletal: underwriter mortgage loan strength diminished, equal 4/5 ASSESSMENT/PLAN: 1. Cervical [...] - Recommend regular aerobic exercise Marvin Leavitt APRN.EXTRUSION PRESS SUPERVISOR RTO in 1 months with PCP team. This note was partly generated using [employer] voice recognition dictation and may contain some misspelled or inaccurate words missed on review.[facility]12-20-2023 NoteHNO ID: [id number] Author: Liliam Rowell APRN.ALYSSA Service: ? Author Type: Nurse Practitioner Type: Progress Notes Filed: 06/08/2023 1:03 PM Note Text: This is a 53 year old female who presents today with: Patient presents with: custodial follow up: zaki EVANGELISTA 06/06; transferred from [facility] HISTORY OF PRESENT ILLNESS: Mariluz Garcia is a 53 year old female. Patient presents with: custodial follow up: zaki EVANGELISTA 06/06; transferred from [facility] Pt presents today for hospital/custodial follow-up. Went to the hospital d/t arms and legs stopped working. Called squad to go to the ER. 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 Had C3-C5 ACDF on 05/18. Did well after surgery. Went to [facility] on 05/23 for additional rehab. Discharged [...] on her discharge medication list. Nursing called custodial and verified that patient is taking metoprolol 50 mg daily and that she was not receiving prozac. PAST MEDICAL HISTORY: PAST MEDICAL HISTORY Diagnosis Date Alcohol abuse Anemia Back pain Blood dyscrasia Cervical spondylosis without myelopathy Cholecystitis 04/2020 Chronic hepatitis C (HCC) DDD (degenerative disc disease), lumbar Depression with anxiety Drug use 08/15/2018 ecstacy Emphysema of lung ([facility]) Encounter for support and coordination of transition of care 05/15/2020 HOSPITAL/ER FOLLOW UP Which facility: [facility] Dates of visit: 05/10-05/13/2020 Preadmission [...] of admission 05/01/2021 Date of discharge: Facility: [facility] 05/01/2021 presented to the emergency room with acute alcohol intoxication, initial alcohol level 7-8. Acknowledges over the last 5 months drinking 15 packs a day at 8% alcohol (natty dadalfa). Vital signs 96.6 F-78-18-111/73-98%. Appearance was no acute distress. WBC 7.9-Hgb 13.8-HCT 39 Encounter for support and coordination of transition of care 05/05/2022 05/05/2022 patient called squad, transported to [facility] with lightheadedness and multiple syncopal episodes one of them resulting in injury to her right foot. GERD (gastroesophageal reflux disease) Hyperglycemia Hypertension Lung abscess ([facility]) saw Néstor Li and Dr. Zarate. Major depression Mild protein-calorie malnutrition (HCC) 08/26/2020 Obesity PE (pulmonary thromboembolism) ([facility]) PTSD (post-traumatic stress disorder) Snoring [...] Medication Sig ibuprofen (MOT (more content not included)...[facility] 05-26-2023 NoteHNO ID: [id number] Author: Rima Espinal PTA Service: ? Author Type: State Attorney Type: Progress Notes Filed: 05/26/2023 4:36 PM Note Text: 05/26/2023 [facility] PHYSICAL THERAPY [...] or scheduled additional follow-up appointments. Rima Espinal PTANorthern Light [facility] Hospital12-06-2023 Miscellaneous Notes* Telephone Encounter - Agustina Guillen Ma - 05/25/2023 9:51 AM EST Patient notified and in nursing facility at this time Agustina Guillen Ma * Telephone Encounter - Flo Martino MD - 05/25/2023 9:38 AM EST Patient's MRI of the cervical spine ordered by our office has not been approved by her insurance. It appears she had MRI of cervical spine at [facility] on 05/16 and was hospitalized after a fall. Will cancel our order. F/u with PCP team for hospital discharge. documented in this encounterOhiohealth Pickerington [facility] Hospital12-01-2023 Miscellaneous Notes* Telephone Encounter - Bharti Coello Ma - 05/20/2023 10:47 AM EST Completed forms faxed * Telephone Encounter - Ling Huang LPN - 05/18/2023 1:12 PM EST Forms to providers desk to review and complete. * Telephone Encounter - Luis Mascorro - 05/18/2023 9:24 AM EST Type of form: CMN/Incontinence Order Form from [facility] Form received via fax When form is completed, Fax form to [phone] Form has been forwarded to Provider Mailbox: ALEIDA Diane documented in this encounterOhiohealth Pickerington [facility]11-21-2023 NoteHNO ID: [id number] Author: Flo Martino MD Service: ? Author Type: Physician Type: Progress Notes Filed: 05/11/2023 4:49 PM Note Text: Chief Complaint Patient presents with: ER F/U: Numbness and tingling in Bilateral hands HPI Mariluz Garcia is a 53 year old female who presents here today for ER Follow Up.. Patient evaluated at [facility] ED on 04/29 for complaint [...] care 05/15/2020 HOSPITAL/ER FOLLOW UP Which facility: [facility] Dates of visit: 05/10-05/13/2020 Preadmission [...] of admission 05/01/2021 Date of discharge: Facility: [facility] 05/01/2021 presented to the emergency room with acute alcohol intoxication, initial alcohol level 7-8. Acknowledges over the last 5 months drinking 15 packs a day at 8% alcohol (marcin samaniego). Vital signs 96.6 F-78-18-111/73-98%. Appearance was no acute distress. WBC 7.9-Hgb 13.8-HCT 39 Encounter for support and coordination of transition of care 05/05/2022 05/05/2022 patient called mendez, transported to [facility] with lightheadedness and multiple syncopal episodes one of them resulting in injury to her right foot. GERD (gastroesophageal reflux disease) Hyperglycemia Hypertension Lung abscess ([facility]) saw Néstor Li and Dr. Zarate. Major depression Mild protein-calorie malnutrition ([facility]) 08/26/2020 Obesity PE (pulmonary thromboembolism) ([facility]) PTSD (post-traumatic stress disorder) Snoring [...] once daily. metoprolol succinate (more content not included)...[facility] 05-10-2023 History of Present illness Narrative* Flo Martino MD - 05/10/2023 11:12 AM EST Chief Complaint Patient presents with: ER F/U: Numbness and tingling in Bilateral hands HPI Mariluz Garcia is a 53 year old female who presents here today for ER Follow Up.. Patient evaluated at [facility] ED on 04/29 for complaint [...] and weakness in her hands continues to graduallyworsen. Feels like hands are cold without cyanosis. [...] care 05/15/2020 HOSPITAL/ER FOLLOW UP Which facility: [facility] Dates of visit: 05/10-05/13/2020 Preadmission evaluation:ER with right-sided abdominal pain over 2-1/2 hours, [...] of admission 05/01/2021 Date of discharge: Facility: [facility] 05/01/2021 presented to the emergency room with acute alcohol intoxication, initial alcohol level 7-8. Acknowledges over the last 5 months drinking 15 packs a day at 8% alcohol (natty daddy). Vital signs 96.6 F-78-18-111/73-98%. Appearance was no acute distress. WBC 7.9-Hgb 13.8-HCT 39 Encounter for support and coordination of transition of care 05/05/2022 05/05/2022 patient called squad, transported to [facility] with lightheadedness andmultiple syncopal episodes one of them resulting in injury to her right foot. GERD (gastroesophageal reflux disease) Hyperglycemia Hypertension Lung abscess ([facility]) saw Néstor Li and Dr. Zarate. Major depression Mild protein-calorie malnutrition ([facility]) 08/26/2020 Obesity PE (pulmonary thromboembolism) ([facility]) PTSD (post-traumatic stress disorder) Snoring [...] 2 Puffs as instructed every 4 hours asneeded for wheezing/shortness of breath. ferrous sulfate 325 [...] 8 hours as needed for pain. Take withfood. oxybutynin ER (DITROPAN XL) 10 mg 24 [...] joint swelling, deformity, or tenderness. Neurologic: 4/5 underwriter mortgage loan strength bilaterally. 5/5 strength in arms. Decreased sensation to light touchover palms, forearms, and lateral upper arms. Positive [...] IVCON Flo Martino MD documented in this encounterOhiohealth Pickerington [facility]09-22-2023 NoteHNO ID: [id number] Author: Rima Espinal PTA Service: ? Author Type: State Attorney Type: Progress Notes Filed: 03/11/2023 1:25 PM [...] on stairs Entered the pool assist level: [place], With rail Aquatic Therapy (77081): Walking, Lower Extremity, Stretching and Flexibility, Vertical / [place] - Buoyancy Supported Walking: Forward Walking, Lateral/ Side Stepping Water Turbulence: #1 Forward Walking: x5 Lateral/Side Stepping: x5 Lower Extremity: Hip Flexion, Hip Extension, Hip Abduction, Hip Circumduction Hip Flexion: 2x10 Hip Extension: 2x10 Hip Abduction: 2x10 Hip Circumduction: 5/5ea Vertical/[place] - Buoyancy Supported : Hip Abduction/ Adduction, [...] : 1230 Session Stop Time : 1322 Rimaivy EspinalGABYNorthern Light [facility] Hospital09-22-2023 History of Present illness Narrative* Teddy GABY Abarca - 03/11/2023 1:22 PM EDT Episode Visit Count: 2 Therapist That Will [...] all movement patterns. Pt had most relief fullyunloaded in deep water, DKTC was most beneficial [...] deck pre-treatment: Yes, patient wearing appropriate footwear andappeared safe on pool deck Footwear on pool deck post-treatment: Yes, patient wearing appropriate footwear and appeared safe on pool deck Entered the pool: Forward on stairs Entered the pool assist level: [place], With rail Aquatic Therapy (57049): Walking, Lower Extremity, Stretching and Flexibility, Vertical / [place] - Buoyancy Supported Walking: Forward Walking, Lateral/ Side Stepping Water Turbulence: #1 Forward Walking: x5 Lateral/Side Stepping: x5 Lower Extremity: Hip Flexion, Hip Extension, Hip Abduction, Hip Circumduction Hip Flexion: 2x10 Hip Extension: 2x10 Hip Abduction: 2x10 Hip Circumduction: 5/5ea Vertical/[place] - Buoyancy Supported : Hip Abduction/ Adduction, [...] for proper form with exercises. Verbal, demonstrative andtactile cues for body mechanics and postural awareness. [...] 1322 Rima Espinal PTA documented in this encounterOhiohealth Pickerington [facility] Hospital09-20-2023 Miscellaneous Notes* Telephone Encounter - Ling Huang LPN - 03/09/2023 1:26 PM EDT Completed and faxed. * Telephone Encounter - Luis Mascorro LPN - 03/02/2023 2:15 PM EDT Type of form: DME Form received via fax When form is completed, Fax form to [phone] Form has been forwarded to Physician Mailbox: Faustino Mascorro LPN documented in this encounterOhiohealth Pickerington [facility]09-11-2023 Miscellaneous Notes* Telephone Encounter - Zoraida Garcia LPN - 02/28/2023 9:03 AM EDT Last OV: 01/04/23 - Next scheduled appt: 06/10/23 Patient has been identified by name and date of : Yes Requested Prescriptions Pending Prescriptions Disp Refills metoprolol succinate ER (TOPROL XL) 50 mg 24 hr tablet 30 tablet 3 Sig: Take 1 tablet by mouth once daily. RX INSTRUCTIONS: Pharmacy initiated this request. No need to notify patient. Zoraida Garcia LPN documented in this encounterOhiohealth Pickerington [facility]08-30-2023 NoteHNO ID: [id number] Author: Anay Esteban PT Service: ? Author Type: Physical Therapist [...] up without use of hands on thighs [place] in home exercise program. Perform ADL's with decreased report of symptoms/pain in 6-8 weeks. Increased strength of (B) LE's by one full MMT grade or better Patient Goals: decreasde pain and improved function Planned Interventions, Frequency, and Duration: Current Frequency: 2x/week Duration: 8 weeks Total Number of Visits Planned: 16 Planned Treatment Interventions: Aquatic PT (30143), Therapeutic exercise (05904), Neuromuscular re-education (24484), Manual therapy (08758), Therapeutic activities (36539), Self-prison management (97548), Gait Training (69545), Group Therapy (32374) PLAN FOR NEXT VISIT: begin aquatic therapy Patient demonstrates good understanding of plan of care and treatment. The above goals and plan of care were discussed and agreed upon by patient/family. SUBJECTIVE: pain in the (R) hip and (L) leg. Pain shoots down the left leg. All was exacerbated from a fall last December. Hip is [id number]. Patient Goals: decreasde pain and improved function [...] speed Education: Education Learni (more content not included)...[facility]08-30-2023 History of Present illness Narrative* Anay Esteban, PT - 02/16/2023 8:44 AM EDT Episode Visit Count: 1 Therapist That Will [...] up without use of hands on thighs [place] in home exercise program. Perform ADL's with decreased report of symptoms/pain in 6-8 weeks. Increased strength of (B) LE's by one full MMT grade or better Patient Goals: decreasde pain and improved function Planned Interventions, Frequency, and Duration: Current Frequency: 2x/week Duration: 8 weeks Total Number of Visits Planned: 16 Planned Treatment Interventions: Aquatic PT (48699), Therapeutic exercise (64716), Neuromuscular re-education (34524), Manual therapy (26578), Therapeutic activities (78516), Self-prison management (33749), Gait Training (87738), Group Therapy (78976) PLAN FOR NEXT VISIT: begin aquatic therapy Patient demonstrates good understanding of plan of care and treatment. The above goals and plan of care were discussed and agreed upon by patient/family. SUBJECTIVE: pain in the (R) hip and (L) leg. Pain shoots down the left leg. All was exacerbated from a fall last December. Hip is [id number]. Patient Goals: decreasde pain and improved function [...] 914 Anay Esteban PT documented in this encounterOhiohealth Pickerington [facility] Hospital08-28-2023 NoteHNO ID: [id number] Author: Carmelita Ragsdale MD Service: ? Author [...] premenopausal woman who [facility] for evaluation of breast pain. She [...] care 05/15/2020 HOSPITAL/ER FOLLOW UP Which facility: [facility] Dates of visit: 05/10-05/13/2020 Preadmission [...] of admission 05/01/2021 Date of discharge: Facility: [facility] 05/01/2021 presented to the emergency room with acute alcohol intoxication, initial alcohol level 7-8. Acknowledges over the last 5 months drinking 15 packs a day at 8% alcohol (marcin samaniego). Vital signs 96.6 F-78-18-111/73-98%. Appearance was no acute distress. WBC 7.9-Hgb 13.8-HCT 39 Encounter for support and coordination of transition of care 05/05/2022 05/05/2022 patient called squad, transported to [facility] with lightheadedness and multiple syncopal episodes [...] NRV CARPAL T (more content not included)... [facility]08-28-2023 Instructions* Patient Instructions* Agustina Brown PA-C - 02/14/2023 11:18 AM EDT Patient to call [phone] for appointment with genetics. documented in this encounterOhiohealth Pickerington [facility] Hospital08-28-2023 History of Present illness Narrative* Carmelita Ragsdale MD - 02/14/2023 10:20 AM EDT Images from the original note [...] old premenopausal woman who presents to the [facility] today for evaluation of breast pain. She [...] Drug use 08/15/2018 ecstacy Emphysema of lung ([facility]) Encounter for support and coordination of transition of care 05/15/2020 HOSPITAL/ER FOLLOW UP Which facility: [facility] Dates of visit: 05/10-05/13/2020 Preadmission evaluation:ER with right-sided abdominal pain over 2-1/2 hours, [...] of admission 05/01/2021 Date of discharge: Facility: [facility] 05/01/2021 presented to the emergency room with acute alcohol intoxication, initial alcohol level 7-8. Acknowledges over the last 5 months drinking 15 packs a day at 8% alcohol (nataidan samaniego). Vital signs 96.6 F-78-18-111/73-98%. Appearance was no acute distress. WBC 7.9-Hgb 13.8-HCT 39 Encounter for support and coordination of transition of care 05/05/2022 05/05/2022 patient called squad, transported to [facility] with lightheadedness andmultiple syncopal episodes one of them resulting in injury to her right foot. GERD (gastroesophageal reflux disease) Hyperglycemia Hypertension Lung abscess ([facility]) saw Néstor Li and Dr. Zarate. Major depression Mild protein-calorie malnutrition ([facility]) 08/26/2020 Obesity PE (pulmonary thromboembolism) ([facility]) PTSD (post-traumatic stress disorder) Snoring [...] 8 hours as needed for pain. Take withfood. amLODIPine (NORVASC) 10 mg tablet Take 1 [...] 2 Puffs as instructed every 4 hours asneeded for wheezing/shortness of breath. ferrous sulfate 325 [...] imaging from 08/2022. She is at intermediate riskfor the development of breast cancer. She does not meet criteria for enhanced surveillance with MRIat this time. For her pain recommended decreasing [...] Would typically recommend her mother get tested butshe is . Chemoprevention discussion: She would not [...] which included preparing to see the patient, [id number] patient care, completing clinical documentation, obtaining and/or reviewing separately obtained history, performing a medically appropriate examination, counseling and educating the patient/family/caregiver, ordering medications, tests, or procedures, communicating with otherHCPs (not separately reported), independently interpreting results (not separately reported), communicating results to the patient/family/caregiver, and care coordination (not separately reported). Carmelita Ragsdale MD Medical Breast Specialist February 14, 2023 CC: Jenifer Quan [facility] [id number] [address] [place] [address] documented in this encounterOhiohealth Pickerington [facility] Hospital08-28-2023 Miscellaneous Notes* Telephone Encounter - Jenifer Ngo LPN - 02/14/2023 9:15 AM EDT TC to pt who voiced understanding. Of results below. Jenifer Ngo LPN * Telephone Encounter - Jenifer Ngo LPN - 02/14/2023 7:46 AM EDT ----- Message from Urvashi Hughes APRN.EXTRUSION PRESS SUPERVISOR sent at 02/14/2023 7:30 AM EDT ----- EEG is normal and does not show any evidence of seizure activity. documented in this encounterOhiohealth Pickerington [facility] Hospital08-23-2023 NoteHNO ID: [id number] Author: Ibeth Albert PA-C Service: ? Author Type: Physician Superintendent Institution Type: Progress Notes Filed: 02/09/2023 11:04 AM Note Text: Ibeth Albert PA-C [facility] [address] [address] 02/09/2023 ASSESSMENT AND PLAN: Assessment : Encounter [...] back in 2012 or 2013 outside of [facility]. She has had intermittent LEFT lower [...] today with this patient visit. This includes [id number] time, review of chart records regarding conservative care history, spine-pertinent imaging, and communication/care coordination with referring provider, problem-specific history-taking and counseling/education regarding treatment options. cc: Jaimee Palomares [address] [facility] [id number] Results of consultation to be transmitted via electronic medical record for those providers who practice within [facility] or with access to [employer] via [employer], or via letter. ######################################################################## CHIEF COMPLAINT: Lower back pain HPI: see Discussion above History of bowel or bladder dysfunction (not IBS or constipation): Yes, urgency and incontinence. (more content not included)...[facility]08-21-2023 Miscellaneous Notes* Telephone Encounter - Fadumo Romero RN - 02/07/2023 3:23 PM EDT Pharmacy requesting refill of pended medications. Requested [...] 06/10/2023 Fadumo Romero RN documented in this encounterOhiohealth [facility]08-16-2023 Miscellaneous Notes* Telephone Encounter - Bria Burton MA - 02/02/2023 12:07 PM EDT I called patient regarding her upcoming new patient appointment on 02/14/[address] Ragsdale. She was referred by her PRIMARY CLINICIAN Jenifer Yeager APRN. CNP for dense breasts [...] asked for her to arrive 15-20 minutes earlyfor paperwork. Bria Burton MA documented in this encounterOhiohealth Pickering[facility]08-14-2023 Miscellaneous Notes* Telephone Encounter - Crystal Ramesh OCCA - 01/31/2023 3:58 PM EDT In review of patient chart, all below have been scheduled. Nothing further at this time. BETTY Fernandez * Telephone Encounter - Crystal Ramesh OCCA - 01/27/2023 9:11 AM EDT TC to patient who verbalized understanding of providers message below with no questions at this time. Patient is asking that a electroencephalograph technician contact her to assist with rescheduling her cancelled EEG as well as to set her up with the ordered Neuropsychological Testing ordered at [facility]. Please contact patient and assist with above. Thank you!. BETTY Fernandez * Telephone Encounter - Crystal Ramesh OCCA - 01/27/2023 9:08 AM EDT ----- Message from Urvashi Hughes APRN.[employer] SUPERVISOR sent at 01/27/2023 7:44 AM EDT ----- Please let pt know her MRI of the brain does not show any new changes or concerns. Results are unchanged since her previous image in 03/2022. No findings to explain her recent symptoms. documented in this encounterOhiohealth Pickering[facility]08-14-2023 Miscellaneous Notes* Telephone Encounter - Fadumo Garcia - 01/31/2023 10:28 AM EDT Patient has been identified by name and [...] and advise. Fadumo Castañeda documented in this encounterOhiohealth [facility]ering[facility]08-11-2023 Miscellaneous Notes* Telephone Encounter - Fadumo Romero RN - 01/28/2023 1:54 PM EDT Refill request: Requested Prescriptions Pending Prescriptions Disp Refills ibuprofen (MOTRIN) 800 mg tablet 30 tablet 1 Sig: Take 1 tablet by mouth every 8 hours as needed for pain. Take with food. amLODIPine (NORVASC) 10 mg tablet 90 tablet Sig: Take 1 tablet by mouth once daily. Last encounter with this provider: 01/04/2023 Next appt: 06/10/2023 Fadumo Romero RN documented in this encounterOhiohealth Pickerington [facility]08-09-2023 NoteHNO ID: [id number] Author: Bharti Gant RT(Misty) Service: ? Author Type: Technologist Type: Progress Notes Filed: 01/26/2023 11:39 AM Note Text: Radiology Service Progress Note PATIENT NAME: Mariulz Garcia DATE OF SERVICE: January 26, 2023 [...] IV DATA: Not applicable SIGNED BY: RT Benson(Misty) January 26, 2023 11:39 [facility]08-09-2023 History of Present illness Narrative* Bharti Gant RT(R) - 01/26/2023 11:20 AM EDT Radiology Service Progress Note PATIENT NAME: Mariluz Garcia DATE OF SERVICE: January 26, 2023 TIME: 11:39 AM PATIENT IDENTITY VERIFICATION COMPLETED USING TWO (2) IDENTIFIERS: Name and Date of confirmedby patient verbally. FALL SCREENING: Has the patient had 2 falls in the last year or 1 fall with injury or currently using an Ambulatory Assistive Device (Walker, Cane, Wheelchair, Crutches, etc.)? Yes, Patient High Riskfor Falls What interventions were put in place to prevent falls during this visit? Instructed Patient to Callfor Help if Needed, Offered Assistance with Transfers/Clothing, Instructed Patient to Remain Seated(Not on Exam Table) Until Exam, and Increased Observations by Caregivers PATIENT GENDER DATA: Female. status: : No status: NO. PATIENT RELEVANT IMPLANT DATA REVIEWED: Yes RADIOLOGY DEPARTMENT: MR; Exam(s) Completed: Head: Routine Brain PERIPHERAL IV DATA: Not applicable SIGNED BY: RT Benson(R) January 26, 2023 11:39 AM documented in this encounterOhiohealth Pickering[facility]07-28-2023 Miscellaneous Notes* Telephone Encounter - Deloris Troy MD - 01/14/2023 3:19 PM EDT Letter written. Does she need to cancel her injection in [place] on 01/19? Deloris Troy III, [place], [place] * Telephone Encounter - Laura Villegas - 01/14/2023 2:47 PM EDT Patient has called in asking for a release of care from our office as she will be going to a different Pain Management. She will also be going to the [place] office on to fill out the medical records release form. Please advise. Laura Villegas documented in this encounterOhiohealth Pickering[facility]07-20-2023 Miscellaneous Notes* Telephone Encounter - Hanna Mares RN - 01/06/2023 3:08 PM EDT Patient has been identified by name and [...] you. Hanna Mares RN documented in this encounterOhiohealth [facility]ering[facility]07-19-2023 Miscellaneous Notes* Telephone Encounter - Jaimee Palomares PA-C - 01/05/2023 1:12 PM EDT I don't have another option. Continue until [...] once daily. Authorizing Provider: Jaimee PALOMARES PA-C * Telephone Encounter - Ling Huang LPN - 01/05/2023 12:09 PM EDT Talked to patient and she states that [...] to even consider having something in place wouldbe to get off Lyrica. Patient verbalizes understanding. Advised her to be sure to read her medication instructions when they come for taper instructions. * Telephone Encounter - Jaimee Palomares PA-C - 01/04/2023 6:07 PM EDT Please clarify lyrica request. She said to day it provides no relief. If it is not beneficial we should taper and discontinue. Thanks, Faustino Palomares PA-C * Telephone Encounter - Sruthi Piña LPN - 01/04/2023 8:52 AM EDT Patient has been identified by name and date of : Yes, Provider Faustino Palomares, PAC Date 01/03/23 Time 8:58 am Pharmacy phones [...] Date Value 02/13/2019 70 Thank you. Sruthi RAHMAN documented in this encounterOhiohealth Pickerington [facility]07-18-2023 NoteHNO ID: [id number] Author: Jaimee Palomares PA-C Service: ? Author Type: Physician Superintendent Institution Type: Progress Notes Filed: 01/05/2023 1:49 PM Note Text: 52 year old female with c/o ER hospital follow-up 12/29/2022 presented to [facility] emergency department with complaint of diffuse [...] care 05/15/2020 HOSPITAL/ER FOLLOW UP Which facility: [facility] Dates of visit: 05/10-05/13/2020 Preadmission [...] of admission 05/01/2021 Date of discharge: Facility: [facility] 05/01/2021 presented to the emergency room with acute alcohol intoxication, initial alcohol level 7-8. Acknowledges over the last 5 months drinking 15 packs a day at 8% alcohol (nataidan samaniego). Vital signs 96.6 F-78-18-111/73-98%. Appearance was no acute distress. WBC 7.9-Hgb 13.8-HCT 39 Encounter for support and coordination of transition of care 05/05/2022 05/05/2022 patient called squad, transported to [facility] with lightheadedness and multiple syncopal episodes (more content not included)...[facility]07-17-2023 Miscellaneous Notes* Telephone Encounter - Vu Moura Ma - 01/03/2023 11:47 AM EDT Patient called requesting the following refill. Requested Prescriptions Pending Prescriptions Disp Refills oxybutynin ER (DITROPAN XL) 10 mg 24 hr tablet [Pharmacy Med Name: Oxybutynin Chloride ER 10MG TB24] 30 tablet 11 Sig: TAKE 1 TABLET BY MOUTH DAILY Patient last appointment: 11/05/2022 Patient Phone numbers: [phone] (home) Request is for script(s) to be escript to pharmacy. Vu Moura Ma documented in this encounterOhiohealth [facility]07-06-2023 Miscellaneous Notes* Telephone Encounter - Laura Villegas - 12/23/2022 3:31 PM EDT Patient has been cancelled for the TPI and scheduled for the other procedures. Laura Villegas * Addendum Note - Deloris Troy MD - 12/23/2022 1:59 PM EDTAddended by: DELORIS TROY on: 12/23/2022 01:59 PM Modules accepted: Orders * Telephone Encounter - Deloris Troy MD - 12/23/2022 1:57 PM EDT MRI shows new large left-sided L5-S1 disc herniation. Will plan epidural and Electrodiagnostic Study. Deloris Troy III, [place], [place] * Telephone Encounter - Laura Villegas - 12/23/2022 9:14 AM EDT Please advise on how you would like to proceed. Laura Villegas * Telephone Encounter - Estefania Elena - 12/23/2022 9:02 AM EDT Patient Last Name JOSE Patient First Name [...] medical necessity. This process should not preclude usfrom completing the steps needed to secure authorization [...] request does not meet the guidelines.Guidelines used: [place] Administrative Code Rule 5160-4-12 Immunizations, injections and infusions (including trigger-point injections), skin substitutes, and provider-administered pharmaceuticals; [place] Administrative Code 5160-1-01; Jv Trigger Point Injections (MM-0011) Date of Service 01/13/23 Is Peer to Peer Available? (Instructions below) Yes Peer to Peer Deadline Until (5 business days) Appeal Deadline (Instructions below) 180 calendars days from 12/18/22 Insurance Case Information Insurance Name Jv Patient's Insurance Case# [id number] Ordering Provider DELORIS TROY Approved Services Denied Services (CPT ) - TRIGGER POINT INJECTION MULTI 3+ MUSCLE GRP Alternative Recommendation N/A *Service which can be approved in place of denied service. Clinical Documentation Provided Peer to Peer Instructions Peer to Peer opt 1 Does Peer to Peer need to be scheduled? Yes, by leaving a voice mail requesting a call back. Who can complete the Peer to Peer? Dr, PA, CABLE REELER, LN Additional Peer to Peer Instructions You can call for the peer to peer at the date and time of yourconvenience Appeal Instructions Appeal Address N/A Appeal Required Form(s) Yes, Please see attached. Additional Appeal Instructions Send it attention to: Appeals department and include: coversheet with patient's and case information, a formal appeal letter and attach any pertinent supporting clinical documentation. Also, provider and member's consent forms are required for appeal submission. Facility Information Location [facility] [place] [id number] Tax ID# [id number] documented in this encounterOhiohealth [facility]06-29-2023 Miscellaneous Notes* Telephone Encounter - Aleida Auguste - 12/16/2022 2:28 PM EDT No Show Documentation Mariluz Garcia no showed [...] or Fourth No Show ? No Aleida Dengard December 16, 2022 2:28 PM documented in this encounterOhiohealth Pickering[facility]06-29-2023 NoteHNO ID: [id number] Author: Urvashi Hughes APRN.[employer]ESS SUPERVISOR Service: ? Author Type: Nurse Practitioner Type: Progress Notes Filed: 12/16/2022 1:17 PM Note Text: [facility] [place] Follow-up Visit Follow-up note December 16, 2022 [...] Words, up to 2 trials: Face, Velvet, Synagogue, Yudith, Red (no points) 5/5 first try, [...] 1 error) (06/20) Serial subtraction by 7: [id number] (3 points for correct 4 or 5; 2 points for 2 or 3 correct; 1 point for 1 correct) [id number] (3/3) Language: repeat: I only know that Laith is the one to help today (0-1) (06/20) Language: repeat: The cat always hid under the couch when dogs were in the room (0-1) (06/20) Fluency: max words beginning with the letter F (1 point if 11 or more words) lllll lllll l (06/20) Abstraction: practice banana-orange=fruit. Then train-bicycle (1) AND watch-ruler (1) total: (2) (2/) Delayed recall: recall words: face, velvet, religion, yudith, red (0-5) (4/5) Orientation: date(1), month(1), [...] (HCC) DDD (degenerative di (more content not included)...[facility] 12-16-2022 History of Present illness Narrative* Urvashi Hughes, SARAI.[facility] - 12/16/2022 11:30 AM EDT Images from the original note were not included. [facility] [place] Follow-up Visit Follow-up note December 16, 2022 [...] and typically uses a cane when ambulating. Unab le to assess hip flexion as patient reports pain on exam. Otherwise, strength intact throughout. Nonystagmus noted on exam. MoCA completed today with [...] through a counseling center. States this has onlybeen going on since she stopped the medication. This was about three months ago. Had hallucinationsprior to this but they stopped after starting her medications. Has incontinence; not new and getting better. States she was overweight and had pressure on the bladder. Happens at night. Wearing depends. No convulsions or seizure activity. Can have staring episodes. Increased vistaril yesterday at psychiatry visit. Reports blurred vision. Did not take BP medication this morning. Has been using walker at home. Hasfallen five times over the past year. Then [...] Words, up to 2 trials: Face, Velvet, Synagogue, Yudith, Red (no points) 5/5 first try, [...] 1 error) (06/20) Serial subtraction by 7: [id number] (3 points for correct 4 or 5; 2 points for 2 or 3 correct; 1 point for 1 correct) [id number] (3/3) Language: repeat: I only know that Laith is the one to help today (0-1) (06/20) Language: repeat: The cat always hid under the couch when dogs were in the room (0-1) (06/20) Fluency: max words beginning with the letter F (1 point if 11 or more words) lllll lllll l (06/20) Abstraction: practice banana-orange=fruit. Then train-bicycle (1) AND watch- ruler (1) total: (2) (/2) Delayed recall: recall words: face, velvet, religion, yudith, red (0-5) (/5) Orientation: date(1), month(1), [...] care 05/15/2020 HOSPITAL/ER FOLLOW UP Which facility: [facility] Dates of visit: 05/10-05/13/2020 Preadmission evaluation:ER with right-sided abdominal pain over 2-1/2 hours, [...] of admission 05/01/2021 Date of discharge: Facility: [facility] 05/01/2021 presented to the emergency room with acute alcohol intoxication, initial alcohol level 7-8. Acknowledges over the last 5 months drinking 15 packs a day at 8% alcohol (marcin josealfa). Vital signs 96.6 F-78-18-111/73-98%. Appearance was no acute distress. WBC 7.9-Hgb 13.8-HCT 39 Encounter for support and coordination of transition of care 05/05/2022 05/05/2022 patient called squad, transported to [facility] with lightheadedness andmultiple syncopal episodes one of them resulting in injury to her right foot. GERD (gastroesophageal reflux disease) Hyperglycemia Hypertension Lung abscess (HCC) saw Néstor Li and Dr. Zarate. Major depression Mild protein-calorie malnutrition (HCC) 08/26/2020 Obesity PE (pulmonary thromboembolism) ([facility]) PTSD (post-traumatic stress disorder) Snoring [...] 8 hours as needed for pain. Take withfood. Blood Pressure Test Kit-Medium kit 1 Each [...] 2 Puffs as instructed every 4 hours asneeded for wheezing/shortness of breath. atorvastatin (LIPITOR) 40 [...] Abs Lymph 1.00 - 4.00 k/uL 1.75 [place]% % 9.1 Abs [place] <0.87 k/uL 0.67 E[place]% % 4.1 Abs [...] remission F19.10 Polysubstance abuse (HCC) Z79.899 Polypharmacy R26.89 Balance problem R29.6 Falls frequently F32.A Depression, unspecified depression type R44.3 Hallucinations Comment: Patient previously seen for complaints of cognitive decline. MRI brain and TSH both unremarkable. B12 low normal and pt supplementing. Concern at time of previous appointment that metabolic derangements, pseudodementia, polypharmacy and medication noncompliance, EtOH use, and polysubstanceabuse potentially all contributing to symptoms. On further [...] pain, tandem with mild imbalance. No nystagmus ordysmetria. MOCA repeated today with slight decline in [...] which included preparing to see the patient, toao-ca-liqw patient care, completing clinical documentation, obtaining and/or reviewing separately obtained history, performing a medically appropriate examination, counseling and educating the pat ient/family/caregiver, and ordering medications, tests, or procedures. documented in this encounterOhiohealth Pickerington [facility]06-23-2023 Miscellaneous Notes* Telephone Encounter - Jaimee Palomares PA-C - 12/10/2022 12:51 PM EDT The following approved medication requests have been transmitted electronically. Requested Prescriptions Signed Prescriptions Disp Refills Blood Pressure Monitor 1 Kit 0 Si Each once daily. ICD 10 code I10 Authorizing Provider: Jaimee PALOMARES PA-C * Telephone Encounter - Jaimee Foster RN - 12/10/2022 11:31 AM EDT Zeina Jaimee reports she received a faxed order for BP cuff. States she needs order to state BP monitor, and she needs it to have an ICD 10 code on it, and she needs it to be e-scripted to them. Pended. documented in this encounterOhiohealth Pickerington [facility]06-23-2023 Miscellaneous Notes* Telephone Encounter - Hanna Mares RN - 12/10/2022 9:30 AM EDT Patient calls to request order for BP cuff be sent to [facility]. Faxed per request to [phone]. Hanna Mares RN documented in this encounterOhiohealth Pickerington [facility]06-22-2023 NoteHNO ID: [id number] Author: Jaimee Palomares PA-C Service: ? Author Type: Physician Superintendent Institution Type: Progress Notes Filed: 12/09/2022 7:56 PM [...] care 05/15/2020 HOSPITAL/ER FOLLOW UP Which facility: [facility] Dates of visit: 05/10-05/13/2020 Preadmission [...] of admission 05/01/2021 Date of discharge: Facility: [facility] 05/01/2021 presented to the emergency room with acute alcohol intoxication, initial alcohol level 7-8. Acknowledges over the last 5 months drinking 15 packs a day at 8% alcohol (nataidan samaniego). Vital signs 96.6 F-78-18-111/73-98%. Appearance was no acute distress. WBC 7.9-Hgb 13.8-HCT 39 Encounter for support and coordination of transition of care 05/05/2022 05/05/2022 patient called squad, transported to [facility] with lightheadedness and multiple syncopal episodes one of them resulting in injury to her right foot. GERD (gastroesophageal reflux disease) Hyperglycemia Hypertension Lung abscess (HCC) saw Néstor Li and Dr. Zarate. Major depression Mild protein-calorie malnutrition (HCC) 08/26/2020 Obesity PE (pulmonary thromboembolism) ([facility]) PTSD (post-traumatic stress disorder) Snoring [...] (Degenerative Disc Disease), Lumbar Emphysema of Lung ([facility]) Tobacco Use Disorder Hypertension Gerd (Gastroesophageal Reflux Disease) Carpal Tunnel Syndrome, Bilateral Obesity Anemia Radiculopathy, Lumbar Region Alcohol Abuse Chronic Midline Low Back Pain With Left-Sided Sciatica Pe (Pulmonary Thromboembolism) ([facility]) Hyperglycemia Stasis Edema Right Lumbar Radiculopathy Obesity, Class III, BMI >= 40 (morbid obesity) E66.01 Delusional Disorder (Hcc) Chronic Low Back Pain With Sciatica Abnormal Echocardiogram Chronic Left-Sided Low Back Pain With Sciatica Copd (Chronic Obstructive Pulmonary Disease) With Chronic Bronchitis ([facility]) Positive Urine Drug Screen Lumbar Spondylosis Cervical Spondylosis Without Myel (more content not included)...[facility]06-22-2023 History of Present illness Narrative* NAYELY Gibson - 12/09/2022 3:20 PM EDT 52 year old female with c/o .HTN: [...] care 05/15/2020 HOSPITAL/ER FOLLOW UP Which facility: [facility] Dates of visit: 05/10-05/13/2020 Preadmission evaluation:ER with right-sided abdominal pain over 2-1/2 hours, [...] of admission 05/01/2021 Date of discharge: Facility: [facility] 05/01/2021 presented to the emergency room with acute alcohol intoxication, initial alcohol level 7-8. Acknowledges over the last 5 months drinking 15 packs a day at 8% alcohol (natty daddy). Vital signs 96.6 F-78-18-111/73-98%. Appearance was no acute distress. WBC 7.9-Hgb 13.8-HCT 39 Encounter for support and coordination of transition of care 05/05/2022 05/05/2022 patient called squad, transported to [facility] with lightheadedness andmultiple syncopal episodes one of them resulting in injury to her right foot. GERD (gastroesophageal reflux disease) Hyperglycemia Hypertension Lung abscess ([facility]) saw Néstor Li and Dr. Zarate. Major depression Mild protein-calorie malnutrition ([facility]) 08/26/2020 Obesity PE (pulmonary thromboembolism) ([facility]) PTSD (post-traumatic stress disorder) Snoring [...] 1 tablet by mouth once daily. 30 tablet3 oxybutynin ER (DITROPAN XL) 10 mg 24 hr tablet Take 1 tablet by mouth once daily. 30 tablet 1 ibuprofen (MOTRIN) 800 mg tablet Take 1 tablet by mouth every 8 hours as needed for pain. Take withfood. 30 tablet 1 cyanocobalamin (VITAMIN B-12) 1,000 [...] 2 Puffs as instructed every 4 hours asneeded for wheezing/shortness of breath. 3 Each 3 [...] needed for wheezing/shortness of breath. Use over 5- 15minutes. 120 mL 5 Nebulizers Use as directed. [...] exercise Jaimee Palomares PA-C documented in this encounterOhiohealth Pickerington [facility]06-05-2023 Miscellaneous Notes* Telephone Encounter - Laina Orellana RN - 11/22/2022 4:40 PM EDT Patient calling to say she was seen in [facility] ER today. She says she was given Hydralazine for her high BP and instructed to follow up with PCP in 3- 5 days. Scheduled follow up with Liliam Rowell NP on 11/24 per patient's preference. Laina Orellana RN * Telephone Encounter - Laina Orellana RN - 11/22/2022 12:46 PM EDT Patient calling to let provider know her [...] 7. :NO Protocols used: Blood Pressure - [id number] documented in this encounterOhiohealth Pickerington [facility]06-05-2023 Miscellaneous Notes* Telephone Encounter - Zoraida Garcia LPN - 11/22/2022 9:36 AM EDT Last OV: 11/08/22. - Next scheduled appt: 12/09/22 Patient has been identified by name and date of : Yes Requested Prescriptions Pending Prescriptions Disp Refills metoprolol succinate ER (TOPROL XL) 50 mg 24 hr tablet 30 tablet 3 Sig: Take 1 tablet by mouth once daily. RX INSTRUCTIONS: Pharmacy initiated this request. No need to notify patient. Zoraida Garcia LPN documented in this encounterOhiohealth Pickerington [facility]05-22-2023 NoteHNO ID: [id number] Author: Jaimee Palomares PA-C Service: ? Author Type: Physician Superintendent Institution Type: Progress Notes Filed: 11/08/2022 8:05 PM [...] having emergency surgery for hernia sent to [facility]. Still having some flashes shoot behind [...] care 05/15/2020 HOSPITAL/ER FOLLOW UP Which facility: [facility] Dates of visit: 05/10-05/13/2020 Preadmission [...] of admission 05/01/2021 Date of discharge: Facility: [facility] 05/01/2021 presented to the emergency room with acute alcohol intoxication, initial alcohol level 7-8. Acknowledges over the last 5 months drinking 15 packs a day at 8% alcohol (marcin samaniego). Vital signs 96.6 F-78-18-111/73-98%. Appearance was no acute distress. WBC 7.9-Hgb 13.8-HCT 39 Encounter for support and coordination of transition of care 05/05/2022 05/05/2022 patient called squad, transported to [facility] with lightheadedness and multiple syncopal episodes one of them resulting in injury to her right foot. GERD (gastroesophageal reflux disease) Hyperglycemia Hypertension Lung abscess ([facility]) saw Néstor Li and Dr. Zarate. Major depression Mild protein-calorie malnutrition (HCC) 08/26/2020 Obesity PE (pulmonary thromboembolism) ([facility]) PTSD (post-traumatic stress disorder) Snoring [...] started smoking 14yr, 3 (more content not included)...[facility] 10-26-2022 Miscellaneous Notes* Telephone Encounter - Maribell Baltazar MATTEO - 10/26/2022 2:27 PM EDT Patient has been identified by name and [...] you. Maribell Baltazar LPN documented in this encounterOhiohealth Pickerington Methodist Hospital05-03-2023 NoteHNO ID: [id number] Author: Jenifer Yeager APRN.CNM Service: ? Author Type: Brew House Supervisor Type: Progress Notes Filed: 10/20/2022 9:15 PM [...] L0 SAB0 IAB0 Ectopic0 Multiple0 Live Births0 Um Nurse History LMP: Hysterectomy Age at Menarche: Age at First : Age at Menopause: Um Nurse History Comments: Sexual Activity: Not Currently; No [...] care 05/15/2020 HOSPITAL/ER FOLLOW UP Which facility: [facility] Dates of visit: 05/10-05/13/2020 Preadmission [...] of admission 05/01/2021 Date of discharge: Facility: [facility] 05/01/2021 presented to the emergency room with acute alcohol intoxication, initial alcohol level 7-8. Acknowledges over the last 5 months drinking 15 packs a day at 8% alcohol (marcin samaniego). Vital signs 96.6 F-78-18-111/73-98%. Appearance was no acute distress. WBC 7.9-Hgb 13.8-HCT 39 Encounter for support and coordination of transition of care 05/05/2022 05/05/2022 patient called squad, transported to [facility] with lightheadedness and multiple syncopal episodes [...] (MOTRIN) 800 mg table (more content not included)...[facility]05-03-2023 Instructions* Patient Instructions* Jenifer Yeager APRN.[facility] - 10/20/2022 11:32 AM EDT Management of Benign Breast Pain / Fibrocystic Changes Decrease or avoid intake of caffeine, including coffee, teas, sodas, and chocolate. Decrease or avoid nicotine. Wear a support or sports (not underwire) bra. Take itfw-crr-vpflmvh ibuprofen (Advil/Motrin) or other NSAIDs, such as naproxen (Aleve). Take 3 grams (3000 mg.) of evening primrose oil (available ksri-hgu-sciojia) in divided doses for 2months. Take warm showers. Use warm compresses. Bacterial Vaginosis What is bacterial vaginosis? Bacterial vaginosis (BV) is a common infection that occurs in a woman's vagina. Bacterial vaginosisdoes not usually cause serious health problems, except [...] your health care provider. You cannot purchase epaf-kju-jwbynti products to treat BV. Products for douching [...] swelling, or soreness around the vagina Copyright 4213-6364 The [facility]. All rights reserved. This information is provided by the [facility] and is not intended to replace the medical advice of your doctor or health care provider. Please consult your health care provider for advice about a specific medical condition. For additional written health information, please contact the [facility] at the [facility] or toll-free extension [phone] or visit [email or web address] This document was last reviewed on: 2009 documented in this encounterOhiohealth Pickerington Methodist Hospital05-03-2023 History of Present illness Narrative* Jenifer Yeager APRN.CNM - 10/20/2022 11:02 AM EDT Mariluz Garcia is a 52 year old [...] L0 SAB0 IAB0 Ectopic0 Multiple0 Live Births0 Um Nurse History LMP: Hysterectomy Age at Menarche: Age at First : Age at Menopause: Um Nurse History Comments: Sexual Activity: Not Currently; No partner data on record Contraception: No contraception data on record PAST MEDICAL HISTORY Diagnosis Date Alcohol abuse Anemia Back pain Blood dyscrasia Cervical spondylosis without myelopathy Cholecystitis 04/2020 Chronic hepatitis C (HCC) DDD (degenerative disc disease), lumbar Depression with anxiety Drug use 08/15/2018 ecstacy Emphysema of lung ([facility]) Encounter for support and coordination of transition of care 05/15/2020 HOSPITAL/ER FOLLOW UP Which facility: [facility] Dates of visit: 05/10-05/13/2020 Preadmission evaluation:ER with right-sided abdominal pain over 2-1/2 hours, [...] of admission 05/01/2021 Date of discharge: Facility: [facility] 05/01/2021 presented to the emergency room with acute alcohol intoxication, initial alcohol level 7-8. Acknowledges over the last 5 months drinking 15 packs a day at 8% alcohol (natty daddy). Vital signs 96.6 F-78-18-111/73-98%. Appearance was no acute distress. WBC 7.9-Hgb 13.8-HCT 39 Encounter for support and coordination of transition of care 05/05/2022 05/05/2022 patient called squad, transported to [facility] with lightheadedness andmultiple syncopal episodes one of them resulting in injury to her right foot. GERD (gastroesophageal reflux disease) Hyperglycemia Hypertension Lung abscess (HCC) saw Néstor Li and Dr. Zarate. Major depression Mild protein-calorie malnutrition (HCC) 08/26/2020 Obesity PE (pulmonary thromboembolism) ([facility]) PTSD (post-traumatic stress disorder) Snoring [...] 8 hours as needed for pain. Take withfood. Cholecalciferol, Vitamin D3, (VITAMIN D) 25 mcg (1,000 unit) cap Take 1 capsule by mouth once daily. omeprazole (PRILOSEC) 20 mg capsule TAKE 1 CAPSULE BY MOUTH DAILY albuterol HFA (VENTOLIN HFA) 90 mcg/actuation inhaler Inhale 2 Puffs as instructed every 4 hours asneeded for wheezing/shortness of breath. baclofen (LIORESAL) 10 [...] exam. Jenifer Yeager APRN.CNM documented in this encounterOhiohealth Pickerington Methodist Hospital04-27-2023 NoteHNO ID: [id number] Author: Shruthi Keita MA Service: ? Author Type: Milk Pickup Truck Driver Type: Progress Notes Filed: 10/14/2022 1:57 PM [...] disturbance and suicidal ideas. The patient is nervous/anxious.[facility]04-27-2023 History of Present illness Narrative* Shruthi Keita MA - 10/14/2022 1:22 PM EDT Review of Systems Constitutional: Positive for chills [...] and suicidal ideas. The patient is nervous/anxious. * Deloris Troy MD - 10/06/2022 2:50 PM EDT Images from the original note were not included. [facility] Name: Mariluz Garcia : 1970 Purpose: 2 month follow-up Today's Date: 10/14/2022 Last Visit: 07/29/2022 Chief complaint: neck and low back pain Mariluz Garcia is an established patient, returning today for continued evaluation and management ofthe chief complaint noted above. Interval History: Overall pain and functional disability: worse New Complaints: none She reports that her neck pain has slowly returned on the left side, burning, relieved with massageto the area, near the base of the [...] Therapy (Aquatic) - completed her course at [facility]. Completed since July. Studies Obtained: [...] providers 10/14/2022 by Deloris Troy MD Percocet /325, #20 (04/09/2022), #28 (08/04/2022), #20 (08/11/2022) Allergies: [...] This information is taken directly from the eating disorder psychologist system. TECHNIQUE: Routine lumbosacral spine MR protocol [...] scoliotic curvature convex left visible on the gastroenterologist. [place] at L4-L5. Mild straightening of usual lumbar [...] impingement of the distal cord within the grjlr-wy-krja. Paraspinal soft tissues: As above. No paraspinal [...] annulus, and facet degenerative change contributes to cdis-kx-cgiyeyei right foraminal narrowing. L4-L5: Disk bulging, loss [...] and assume there are 5 lumbar-type vertebrae. House Repairer: CJ Transcribe Date/Time: Jun 05 2021 11:26A [...] holding to see if truly helping Functional Orthodox: Home Exercise Program under provider supervisions - [...] MBA Pain Management [facility] documented in this encounterCleveland [id number] Miscellaneous Notes* Telephone Encounter - Bharti Coello Ma - 10/07/2022 12:59 PM EDT Spoke with patient and placed in mail * Telephone Encounter - Jaimee Palomares PA-C - 10/07/2022 11:52 AM EDT Printed and taken to nursing desk Faustino Palomares PA-C * Telephone Encounter - Renata Gonzalez RN - 10/05/2022 4:28 PM EDT Pt called in and reports she lost her handicapped placard. She was told she had to call her PCP because she needed a prescription for it. Pt is asking if provider would write an Rx for her and she would like to have a copy of it for herself. Please call and advise. documented in this encounterOhiohealth Pickerington [facility] Hospital04-19-2023 NoteHNO ID: [id number] Author: Deloris Troy MD Service: ? Author Type: Physician Type: Progress Notes Filed: 10/14/2022 1:57 PM Note Text: [facility] General Name: Mariluz Garcia : 1970 Purpose: [...] Therapy (Aquatic) - completed her course at [facility]. Completed since July. Studies Obtained: [...] This information is taken directly from the eating disorder psychologist system. TECHNIQUE: Routine lumbosacral spine MR protocol [...] scoliotic curvature convex left visible on the gastroenterologist. [place] at L4-L5. Mild straightening of usual lumbar lordosis and slightly kyphotic alignment at the level of L1 related to minimal old anterior wedging morphology of L1. Bone marrow signal/fracture: Advanced endplate degenerative change at L1-L2 through the L4 (more content not included)...[facility] 09-16-2022 NoteHNO ID: [id number] Author: Jaimee Palomares PA-C Service: ? Author Type: Physician Superintendent Institution Type: Progress Notes Filed: 09/16/2022 3:41 PM [...] care 05/15/2020 HOSPITAL/ER FOLLOW UP Which facility: [facility] Dates of visit: 05/10-05/13/2020 Preadmission [...] of admission 05/01/2021 Date of discharge: Facility: [facility] 05/01/2021 presented to the emergency room with acute alcohol intoxication, initial alcohol level 7-8. Acknowledges over the last 5 months drinking 15 packs a day at 8% alcohol (marcin josealfa). Vital signs 96.6 F-78-18-111/73-98%. Appearance was no acute distress. WBC 7.9-Hgb 13.8-HCT 39 Encounter for support and coordination of transition of care 05/05/2022 05/05/2022 patient called squad, transported to [facility] with lightheadedness and multiple syncopal episodes one of them resulting in injury to her right foot. GERD (gastroesophageal reflux disease) Hyperglycemia Hypertension Lung abscess ([facility]) saw Néstor Li and Dr. Zarate. Major depression Mild protein-calorie malnutrition (HCC) 08/26/2020 Obesity PE (pulmonary thromboembolism) ([facility]) PTSD (post-traumatic stress disorder) Snoring [...] Pain With Left-Sided Sciatica Pe (Pulmonary Thromboembolism) ([facility]) Hyperglycemia Stasis Edema Right Lumbar Radiculopathy Obesity, Class III, BMI >= 40 (morbid obesity) E66.01 Delusional Disorder (Hcc) Chronic Low Back Pain With Sciatica Abnormal Echocardiogram Chronic Left-Sided Low Back Pain With Sciatica Copd (Chronic Obstructive Pulm (more content not included)...[facility]03-30-2023 History of Present illness Narrative* Jaimee Palomares PA-C - 09/16/2022 2:26 PM EDT 52 year old female with c/o here [...] care 05/15/2020 HOSPITAL/ER FOLLOW UP Which facility: [facility] Dates of visit: 05/10-05/13/2020 Preadmission evaluation:ER with right-sided abdominal pain over 2-1/2 hours, [...] of admission 05/01/2021 Date of discharge: Facility: [facility] 05/01/2021 presented to the emergency room with acute alcohol intoxication, initial alcohol level 7-8. Acknowledges over the last 5 months drinking 15 packs a day at 8% alcohol (marcin samaniego). Vital signs 96.6 F-78-18-111/73-98%. Appearance was no acute distress. WBC 7.9-Hgb 13.8-HCT 39 Encounter for support and coordination of transition of care 05/05/2022 05/05/2022 patient called squad, transported to [facility] with lightheadedness andmultiple syncopal episodes one of them resulting in injury to her right foot. GERD (gastroesophageal reflux disease) Hyperglycemia Hypertension Lung abscess ([facility]) saw Néstor Li and Dr. Zarate. Major depression Mild protein-calorie malnutrition (HCC) 08/26/2020 Obesity PE (pulmonary thromboembolism) ([facility]) PTSD (post-traumatic stress disorder) Snoring [...] 8 hours as needed for pain. Take withfood. 30 tablet 1 Cholecalciferol, Vitamin D3, (VITAMIN D) 25 mcg (1,000 unit) cap Take 1 capsule by mouth once daily. 90 capsule 1 omeprazole (PRILOSEC) 20 mg capsule TAKE 1 CAPSULE BY MOUTH DAILY 30 capsule 5 albuterol HFA (VENTOLIN HFA) 90 mcg/actuation inhaler Inhale 2 Puffs as instructed every 4 hours asneeded for wheezing/shortness of breath. 3 Each 3 [...] needed for wheezing/shortness of breath. Use over 5- 15minutes. 120 mL 5 levothyroxine (SYNTHROID) 25 mcg [...] QUANT Jaimee Palomares PA-C documented in this encounterOhiohealth Pickerington [facility] Hospital03-15-2023 Miscellaneous Notes* Telephone Encounter - Luis Ludwin FELIPE - 09/01/2022 4:46 PM EDT TC to pt, notified of results/provider response. She states she is still having issues daily with that breast. She has an appt with Faustino on Tuesday (09/03) so she will discuss with him at appt. Luis Mascorro LPN * Telephone Encounter - Luis Mascorro LPN - 09/01/2022 4:44 PM EDT ----- Message from Memo Huber MD sent at 09/01/2022 2:49 PM EDT ----- Let her know was negative. If continues to have issues, let us know. documented in this encounterOhiohealth Pickerington [facility] Hospital03-15-2023 NoteHNO ID: [id number] Author: Jenifer Escalante RDMS Service: ? Author Type: Medical Center Representative Type: Progress Notes Filed: 09/01/2022 2:51 PM [...] Escalante RDMS RVT September 01, 2022 2:51 PMCUniversity Hospitals [facility]03-15-2023 NoteHNO ID: [id number] Author: RT Angela(R) Service: ? Author Type: [...] BY: RT Angela(R) September 01, 2022 1:58 PMCUniversity Hospitals Ely[facility]03-15-2023 History of Present illness Narrative* Jenifer Escalante RDMS - 09/01/2022 2:30 PM EDT Radiology Service Progress Note PATIENT NAME: Mariluz Garcia DATE OF SERVICE: September 01, 2022 TIME: 2:51 PM PATIENT IDENTITY VERIFICATION COMPLETED USING TWO (2) IDENTIFIERS: Name and Date of confirmedby patient verbally. FALL SCREENING: Has the patient [...] 01, 2022 2:51 PM documented in this encounterOhiohealth Pickerington [facility] Hospital03-15-2023 History of Present illness Narrative* Urvashi Rodriguez RT(R) - 09/01/2022 2:00 PM EDT Radiology Service Progress Note PATIENT NAME: Mariluz Garcia DATE OF SERVICE: September 01, 2022 TIME: 1:58 PM PATIENT IDENTITY VERIFICATION COMPLETED USING TWO (2) IDENTIFIERS: Name and Date of confirmedby patient verbally. FALL SCREENING: Has the patient [...] RT Angela(R) September 01, 2022 1:58 PM documented in this encounterOhiohealth Pickerington [facility] Hospital03-10-2023 Miscellaneous Notes* Telephone Encounter - Trina Newton MA - 08/27/2022 3:19 PM EST Spoke to patient & advised provider just wanted to have a routine f/u in 3 months per her request & will decide if the 6 months appt at that time is necessary. Patient verbalized understanding of instructions. Scheduled with LISETTE 11/25 @ 145PM. Trina Newton MA * Telephone Encounter - Maribell Baltazar LPN - 08/27/2022 2:18 PM EST Patient returned call and went over notes below and patient is asking why did CABLE REELER change her mind and now wants her back in 3 months? She said was told 6 months before she left her appt yesterday. * Telephone Encounter - Trina Newton MA - 08/26/2022 12:17 PM EST TC to SANDRA Alexandra to have patient call the office back. Patient originally scheduled for 6 months f/u (please keep scheduled at this time) however per Urvashi Hughes please assist patient with scheduling a 3 month follow up too. Trina Newton MA documented in this encounterOhiohealth Pickerington Methodist Hospital03-09-2023 NoteHNO ID: [id number] Author: Urvashi Hughes APRN.EXTRUSION PRESS SUPERVISOR Service: ? Author Type: Nurse Practitioner Type: Progress Notes Filed: 08/26/2022 1:20 PM Note Text: [facility] [place] Follow-up Visit Follow-up note August 26, 2022 [...] day by day. Feels both short and long-term memory have changed. States she can remember [...] Words, up to 2 trials: Face, Velvet, Synagogue, Yudith, Red (no points) 3/5 first try, [...] 1 error) (0/1) Serial subtraction by 7: [id number] (3 points for correct 4 or 5; 2 points for 2 or 3 correct; 1 point for 1 correct) [id number] (3/3) Language: repeat: I only know that Laith is the one to help today (0-1) (1/) Language: repeat: The cat always hid under the couch when dogs were in the room (0-1) (06/20) Fluency: max words beginning with the letter F (1 point if 11 or more words) lllll lllll ll (/) Abstraction: practice banana-orange=fruit. Then train-bicycle (1) AND watch-ruler (1) total: (2) (2/2) Delayed recall: recall words: face, velvet, religion, yudith, red (0-5) (5/5) Orientation: date(1), month(1), [...] care 05/15/2020 HOSPITAL/ER FOLLOW UP Which facility: [facility] Dates of visit: 05/10-05/13/2020 Preadmission evaluation: ER with right-sided abdominal pain over 2-1/2 hours, 10 out of 10. Worse (more content not included)... [facility]03-09-[facility] History of Present illness Narrative* Urvashi Hughes APRN.EXTRUSION PRESS SUPERVISOR - 08/26/2022 10:00 AM EST Images from the original note were not included. [facility] [place] Follow-up Visit Follow-up note August 26, 2022 [...] exam is not suggestive of either. Appears cognitionand mental status acutally fluctuating rather than progressive declining and I suspect that this iseither due to metabolic derangements, pseudodementia with known [...] day by day. Feels both short and longwall foreman memory havechanged. States she can remember her childhood but cannot remember past her 20's. Forgetting names of friends. Stays along a lot. Not currently driving; no vehicle. Not getting lost in familiar places. Often losing objects; three times this morning. Forgot her cane, her coffee (got distracted), andher tea. Sometimes forgetting medications; has a punch [...] Words, up to 2 trials: Face, Velvet, Synagogue, Yudith, Red (no points) 3/5 first try, [...] 1 error) (0/1) Serial subtraction by 7: [id number] (3 points for correct 4 or 5; 2 points for 2 or 3 correct; 1 point for 1 correct) [id number] (3/) Language: repeat: I only know that Laith is the one to help today (0-1) (06/20) Language: repeat: The cat always hid under the couch when dogs were in the room (0-1) (06/20) Fluency: max words beginning with the letter F (1 point if 11 or more words) lllll lllll ll (06/20) Abstraction: practice banana-orange=fruit. Then train-bicycle (1) AND watch- ruler (1) total: (2) (2/2) Delayed recall: recall words: face, velvet, religion, yudith, red (0-5) (5/5) Orientation: date(1), month(1), [...] care 05/15/2020 HOSPITAL/ER FOLLOW UP Which facility: [facility] Dates of visit: 05/10-05/13/2020 Preadmission evaluation:ER with right-sided abdominal pain over 2-1/2 hours, [...] of admission 05/01/2021 Date of discharge: Facility: [facility] 05/01/2021 presented to the emergency room with acute alcohol intoxication, initial alcohol level 7-8. Acknowledges over the last 5 months drinking 15 packs a day at 8% alcohol (marcin samaniego). Vital signs 96.6 F-78-18-111/73-98%. Appearance was no acute distress. WBC 7.9-Hgb 13.8-HCT 39 Encounter for support and coordination of transition of care 05/05/2022 05/05/2022 patient called squad, transported to [facility] with lightheadedness andmultiple syncopal episodes one of them resulting in injury to her right foot. GERD (gastroesophageal reflux disease) Hyperglycemia Hypertension Lung abscess (HCC) saw Néstor Li and Dr. Zarate. Major depression Mild protein-calorie malnutrition (HCC) 08/26/2020 Obesity PE (pulmonary thromboembolism) ([facility]) PTSD (post-traumatic stress disorder) Snoring [...] 8 hours as needed for pain. Take withfood. Cholecalciferol, Vitamin D3, (VITAMIN D) 25 mcg (1,000 unit) cap Take 1 capsule by mouth once daily. omeprazole (PRILOSEC) 20 mg capsule TAKE 1 CAPSULE BY MOUTH DAILY albuterol HFA (VENTOLIN HFA) 90 mcg/actuation inhaler Inhale 2 Puffs as instructed every 4 hours asneeded for wheezing/shortness of breath. baclofen (LIORESAL) 10 [...] Abs Lymph 1.00 - 4.00 k/uL 1.75 [place]% % 9.1 Abs [place] <0.87 k/uL 0.67 [place]% % 4.1 Abs [...] Alcohol abuse, in remission F19.10 Polysubstance abuse ([facility]) Z79.899 Polypharmacy Comment: Patient previously seen for [...] pain on exam. Otherwise, strength intact throughout. Nonystagmus noted on exam. MoCA completed today with [...] which included preparing to see the patient, loij-dn-dsud patient care, completing clinical documentation, obtaining and/or reviewing separately obtained history, performing a medically appropriate examination, and counseling and educating the patient/family/caregiver. documented in this encounterOhiohealth Pickerington [facility] Hospital02-28-2023 Miscellaneous Notes* Telephone Encounter - Sruthi Piña LPN - 08/17/2022 4:41 PM EST Patient has been identified by name and [...] you. Sruthi Piña LPN documented in this encounterOhiohealth Pickerington [facility] Hospital02-27-2023 Miscellaneous Notes* Telephone Encounter - Zoraida Garcia LPN - 08/16/2022 3:31 PM EST Last OV: 08/16/22 Patient has been identified by name and date of : Yes Requested Prescriptions Pending Prescriptions Disp Refills Cholecalciferol, Vitamin D3, (VITAMIN D) 25 mcg (1,000 unit) cap 90 capsule 1 Sig: Take 1 capsule by mouth once daily. RX INSTRUCTIONS: Pharmacy initiated this request. No need to notify patient. Zoraida Garcia LPN documented in this encounterOhiohealth Pickerington [facility] Hospital02-27-2023 NoteHNO ID: [id number] Author: Jaimee Palomares PA-C Service: ? Author Type: Physician Superintendent Institution Type: Progress Notes Filed: 08/16/2022 1:40 PM [...] disease) with chronic bronchitis (hcc) Centrilobar emphysema Goat Farmer: none. Interval history: none. Current medications: Albuterol [...] suspicious mass or adenopathy. 05/05/2022 CTA chest [facility] admit: Mild peribronchial thickening with [...] Radiculopathy, lumbar region Pain management Dr. Troy, [facility] Current medications: Baclofen 10mg twice a day as needed Pregabalin 150mg twice a day Consult PT Can't sleep. Shooting pain from left buttock down leg in to left foot. 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 Taking everything she can. Tearful, c/o no one treating her pain. Wants medication for pain. States she wants surgery: see neurosurgeon at [facility] 06/24/2022 CT cervical spine without contrast [facility] ED, comparison 05/05/2022: Degenerative changes [...] Age of Onset Hy (more content not included)...[facility]02-27-[facility] Instructions* Patient Instructions* Jaimee Palomares PA-C - 08/16/2022 11:47 AM EST See piriformis stretches; try 2-3 times a day. documented in this encounterOhiohealth Pickerington [facility] Hospital02-27-2023 History of Present illness Narrative* Jaimee Palomares PA-C - 08/16/2022 10:40 AM EST 52 year old female with c/o Cognitive impairment, mild, so stated (primary encounter diagnosis) 06/24/2022 CT brain without contrast ER [facility]: Chronic involutional changes, partial opacification of right [...] disease) with chronic bronchitis (hcc) Centrilobar emphysema Goat Farmer: none. Interval history: none. Current medications: Albuterol [...] suspicious mass or adenopathy. 05/05/2022 CTA chest [facility] admit: Mild peribronchial thickening with layered fluid or debris in rightlung bronchi compatible with bronchitis/bronchiolitis. Scattered tree-in-bud central [...] Radiculopathy, lumbar region Pain management Dr. Troy, [facility] Current medications: Baclofen 10mg twice a day as needed Pregabalin 150mg twice a day Consult PT Can't sleep. Shooting pain from left buttock down leg in to left foot. 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 Taking everything she can. Tearful, c/o no one treating her pain. Wants medication for pain. States she wants surgery: see neurosurgeon at [facility] 06/24/2022 CT cervical spine without contrast [facility] ED, comparison 05/05/2022: Degenerative changes [...] Drug use 08/15/2018 ecstacy Emphysema of lung ([facility]) Encounter for support and coordination of transition of care 05/15/2020 HOSPITAL/ER FOLLOW UP Which facility: [facility] Dates of visit: 05/10-05/13/2020 Preadmission evaluation:ER with right-sided abdominal pain over 2-1/2 hours, [...] of admission 05/01/2021 Date of discharge: Facility: [facility] 05/01/2021 presented to the emergency room [...] malnutrition (HCC) 08/26/2020 Obesity PE (pulmonary thromboembolism) ([facility]) PTSD (post-traumatic stress disorder) Snoring [...] 2 Puffs as instructed every 4 hours asneeded for wheezing/shortness of breath. 3 Each 3 [...] 8 hours as needed for pain. Take withfood. 30 tablet 1 L. acidophilus-L. rhamnosus (FLORAJEN [...] needed for wheezing/shortness of breath. Use over 5- 15minutes. 120 mL 5 buPROPion SR (ZYBAN SR; [...] acute distress. Alert and oriented all spheres. Normalaffect and cognition. Speech normal. No deficits to [...] ICD9: 492.8, ICD10: J43.2 Stable, follows with [place] [facility] 6. Alcohol abuse - ICD9: 305.00, [...] limiting caffeine, no meals three hours before sleep,and head of bed elevation - Continue treatment [...] relief from epidural injections but denied by Jv. Encouraged f/u with pain management Jaimee Palomares PA-C Some of this note may have been copied and pasted for the purpose of history context and comparison. documented in this encounterOhiohealth Pickering[facility]02-23-2023 Miscellaneous Notes* Telephone Encounter - Alison Demarco Ma - 08/12/2022 4:18 PM EST Patient phones requesting refills as follows: Requested Prescriptions Pending Prescriptions Disp Refills omeprazole (PRILOSEC) 20 mg capsule [Pharmacy Med Name: Omeprazole 20MG CPDR] 30 capsule 5 Sig: TAKE 1 CAPSULE BY MOUTH DAILY Please review and advise. Alison Demarco Ma documented in this encounterOhiohealth Pickerington [facility] Hospital02-16-2023 Miscellaneous Notes* Telephone Encounter - Bharti Coello Ma - 08/05/2022 5:42 PM EST CORY: 07/29/22 NOV 08/16/22 * Telephone Encounter - Stephany Castañeda - 08/05/2022 1:34 PM EST Patient has been identified by name and date of : Yes Requested Prescriptions Pending Prescriptions Disp Refills albuterol HFA (VENTOLIN HFA) 90 mcg/actuation inhaler Sig: Inhale 2 Puffs as instructed every 4 hours as needed for wheezing/shortness of breath. RX INSTRUCTIONS: Pharmacy initiated this request. No need to notify patient. Stephany Bowser Pss documented in this encounterOhiohealth Pickerington [facility]02-09-2023 NoteHNO ID: [id number] Author: Shruthi Keita MA Service: ? Author Type: Milk Pickup Truck Driver Type: Progress Notes Filed: 07/29/2022 1:46 PM [...] Negative for suicidal ideas. The patient is nervous/anxious.[facility]02-09-2023 NoteHNO ID: [id number] Author: Deloris Troy MD Service: ? Author Type: Physician Type: Progress Notes Filed: 07/29/2022 1:46 PM Note Text: [facility] Today's Date: 07/29/2022 Last Visit: 06/03/2022 [...] 10 9 Pain Location Back-Lower Back-Lower Description Sharp;Shooting;Radiating;Stabbing;Tightness;Stiffness Stabbing;Sharp;Radiating;Shooting;Sore;Aching Duration Amount of Time - - Duration [...] This information is taken directly from the eating disorder psychologist system. TECHNIQUE: Routine lumbosacral spine MR protocol [...] scoliotic curvature convex left visible on the gastroenterologist. Granite Canon at L4-L5. Mild straightening of usual lumbar lordosis and slightly kyphotic alignment at the level of L1 related to minimal old anterior wedging morphology of L1. Bone marrow signal/fracture: Advanced endplate degenerative change at L1-L2 through the L4-L5 level. Type I endplate changes, which may contribute to mechanical back pain. Multilevel endplate irregularities which have (more content not included)...[facility]02-01-2023 Miscellaneous Notes* Telephone Encounter - Ling Huang LPN - 07/21/2022 4:10 PM EST Fax written and sent to [facility]. * Telephone Encounter - Jaimee Palomares PA-C - 07/21/2022 11:06 AM EST Please advise Lynda akins d/c O2. Thanks, Faustino Palomares PA-C documented in this encounterOhiohealth Pickerington [facility]01-27-2023 Miscellaneous Notes* Telephone Encounter - Shira Stewart RN - 07/16/2022 2:18 PM EST Last Office Visit: 05/14/2022 Future Office Visit: [...] of Last Labs: 05/07/2022 documented in this encounterOhiohealth Pickerington [facility]01-25-2023 Miscellaneous Notes* Telephone Encounter - Fadumo Romero RN - 07/14/2022 11:33 AM EST Patient has been identified by name and [...] you. Fadumo Romero, RN documented in this encounterOhiohealth Pickerington [facility] Hospital01-05-2023 Miscellaneous Notes* Telephone Encounter - Nita Gabriel - 06/24/2022 10:58 AM EST Patient contacted Nurse Triage and was advised by them to immediately go the ER for evaluation. Nita Gabriel LPN June 24, 2022 10:59 AM * Telephone Encounter - Shira Kam APRN.ALYSSA - 06/24/2022 10:54 AM EST Agree, patient needs to have ER evaluation s/p fall. Thank you, Shira Kam APRN.EXTRUSION PRESS SUPERVISOR * Telephone Encounter - Nita Gabriel - 06/24/2022 9:59 AM EST Spoke with patient and informed them of [...] Gabriel LPN June 24, 2022 10:01 AM * Addendum Note - Shira Kam APRN.ALYSSA - 06/24/2022 8:57 AM ESTAddended by: SHIRA KAM on: 06/24/2022 08:57 AM Modules accepted: Orders * Telephone Encounter - Shira Kam APRN.ALYSSA - 06/24/2022 8:57 AM EST New Rx was sent to her pharmacy. Please update patient. Thank you, Shira Kam APRN.EXTRUSION PRESS SUPERVISOR * Telephone Encounter - Yuridia Zheng MA - 06/23/2022 4:30 PM EST Patient pharmacy called Baclofen directions does not match quantity patient will only have a 15 daysupply with directions on the script, please advise. documented in this encounterOhiohealth Pickerington [facility]01-05-2023 Miscellaneous Notes* Telephone Encounter - Shira Stewart RN - 06/24/2022 9:15 AM EST Patient call in for left hip injury. [...] left leg are bad Protocols used: Hip [id number] documented in this encounterOhiohealth Pickerington [facility]12-30-2022 Miscellaneous Notes* Telephone Encounter - Ling Huang LPN - 06/18/2022 4:23 PM EST Correct this was completed yesterday and the order was faxed. * Telephone Encounter - Jaimee Palomares PA-C - 06/18/2022 3:56 PM EST I think this was done. Thanks, Faustino Palomares PA-C * Telephone Encounter - Renata Gonzalez RN - 06/17/2022 3:40 PM EST Pt called in and reports she gets her incontinence supplies through [facility]. The phone number for them is [phone] fax # [phone]. She states they told her she needs the provider tosend in a prescription for her to get Adult Diaper in size L maximum absorbency. She states the provider already orders pads for her and she would still like to keep getting those as well. When I called to get the fax # they report they had just sent over an order to the providers office. documented in this encounterOhiohealth Pickerington [facility]12-30-2022 Miscellaneous Notes* Telephone Encounter - Fadumo Romero RN - 06/18/2022 1:05 PM EST Opened in error. Fadumo Romero RN documented in this encounterOhiohealth Pickerington [facility]12-30-2022 Miscellaneous Notes* Telephone Encounter - Nita Gabriel - 06/18/2022 11:09 AM EST [facility] Jen Walters Telephone Medication Refill Request Name/dose: Baclofen 10mg tablet Amount dispensed monthly: 60 Date last filled: 05/31/2022 Date last seen in office: 06/03/2022 Provider: Shira Kam Next scheduled visit: 07/05/2022 Pharmacy: [facility] - [address] [place] [address] - [address] [phone] Nita Gabriel LPN June 18, 2022 11:10 AM documented in this encounterOhiohealth Pickerington [facility]12-28-2022 History of Present illness Narrative* James Cole PT - 06/16/2022 12:58 PM EST Pt arrived to [address] [place] [address] for Physical Therapy appointment. It was determined that the patient and the patient's referring provider were wanting a course of aquatic therapy for the patient's back pain. There is no aquatic therapy provided at this location, and so the patient was directed to [facility]. This PT printed off the patient's PT order and handed it to her. The patient then left the PT department. James Cole PT documented in this encounterOhiohealth Pickering[facility]12-28-2022 Miscellaneous Notes* Telephone Encounter - Liliana London Ma - 06/16/2022 9:12 AM EST Waiting to hear from pt on where to send order too. Liliana London Ma * Telephone Encounter - Jaimee Palomares PA-C - 06/10/2022 8:02 AM EST Telephone on 06/09/22 NEBULIZER ADMINISTRATION SET Thanks, Faustino Palomares PA-C * Telephone Encounter - Jaimee Foster RN - 06/09/2022 4:39 PM EST Patient reports the cup to the nebulizer is broke and will not hold medication. Asking pcp to orderher a new one. Patient will call insurance company to find out what DME is covered and let pcp knowwhere to send order to. documented in this encounterOhiohealth Pickering[facility]12-15-2022 Miscellaneous Notes* Telephone Encounter - Noy Dayna - 06/03/2022 2:05 PM EST Sent in consult to physical therapy, confirmation number is [id number] documented in this encounterOhiohealth Pickerington [facility]12-15-2022 NoteHNO ID: [id number] Author: Shira Kam APRN.EXTRUSION PRESS SUPERVISOR Service: ? Author Type: Nurse Practitioner Type: Progress Notes Filed: 06/03/2022 11:49 AM Note Text: [facility] Today's Date: 06/03/2022 Last Visit: Name: Mariluz Christine Jose : 1970 Chief complaint: Low Back Pain History of Present Illness: Since last encounter, Mariluz G Jose; reports that the chronic problem(s) detailed [...] Pain Location Neck Back-Lower Description Pressure Ulcer/Injury;Aching Sharp;Shooting;Radiating;Stabbing;Tightness;Stiffness Duration Amount of Time - - Duration [...] from several providers 06/03/2022 by Shira Kam APRN.EXTRUSION PRESS SUPERVISOR Allergies: ALLERGIES Allergen Reactions Fentanyl Other: See [...] This information is taken directly from the eating disorder psychologist system. TECHNIQUE: Routine lumbosacral spine MR protocol [...] scoliotic curvature convex left visible on the gastroenterologist. Granite Canon at L4-L5. Mild straightening of usual lumbar [...] impingement of the distal cord within the jnfug-bt-vcus. Paraspinal soft tissues: As above. No paraspinal masses are evident. Lower thoracic spine: Canal and foramina are normally patent at T11-T12. Facet degenerative changes are present at this level, but no significant impact on canal or foraminal patenc (more content not included)...[facility]12-15-2022 NoteHNO ID: [id number] Author: Shruthi Keita MA Service: ? Author Type: Milk Pickup Truck Driver Type: Progress Notes Filed: 06/03/2022 11:49 AM [...] Negative for suicidal ideas. The patient is nervous/anxious.[facility]12-15-2022 Miscellaneous Notes* Telephone Encounter - Noy Mcintosh - 06/03/2022 11:45 AM EST 1.Are you diabetic No 2. Are you [...] days prior to their first dose of theCOVID vaccine. They should not receive any procedure containing steroids in the time frame between their 1st and 2nd doses of the COVID vaccine. They should not receive a procedure containing steroids 14 days after their 2nd dose of the COVID vaccine.) Noy Mcintosh documented in this encounterOhiohealth [facility]ering[facility]12-15-2022 Instructions* Patient Instructions* Shira Kam APRN.CNP - 06/03/2022 11:32 AM EST Activity as tolerated Use Ice and/or heat as tolerated as needed documented in this encounterOhiohealth Pickerington [facility] Hospital12-15-2022 History of Present illness Narrative* Shira Kam APRN.CNP - 06/03/2022 11:15 AM EST Images from the original note were not included. [facility] Today's Date: 06/03/2022 Last Visit: Name: Mariluz Garcia : 1970 Chief complaint: Low Back Pain History of Present Illness: Since last encounter, Mariluz Garcia; reports that the chronic problem(s) detailed above are Worse. Reports she has had severe low back pain since she fell in December 2021 andis not improving. Hx of previous lumbar surgery, [...] Pain Location Neck Back-Lower Description Pressure Ulcer/Injury;Aching Sharp;Shooting;Radiating;Stabbing;Tightness;Stiffness Duration Amount of Time - - Duration [...] from several providers 06/03/2022 by Shira Kam APRN.EXTRUSION PRESS SUPERVISOR Allergies: ALLERGIES Allergen Reactions Fentanyl Other: See [...] This information is taken directly from the eating disorder psychologist system. TECHNIQUE: Routine lumbosacral spine MR protocol [...] scoliotic curvature convex left visible on the gastroenterologist. Granite Canon at L4-L5. Mild straightening of usual lumbar [...] impingement of the distal cord within the zvnxq-cf-uggo. Paraspinal soft tissues: As above. No paraspinal [...] annulus, and facet degenerative change contributes to ostf-fz-nzeoxxjg right foraminal narrowing. L4-L5: Disk bulging, loss [...] and assume there are 5 lumbar-type vertebrae. House Repairer: CJ Transcribe Date/Time: Jun 05 2021 11:26A [...] her LEFT sided radicular symptoms. Recommend trial TRFESILEFT L4/5, L5/S1 Mariluz Garcia would benefit from [...] and an alternative NSAID, she declined Functional Orthodox: Physical Therapy (Aquatic) Additional Studies: Referrals: Additional: [...] decision making from today's date. Shira Kam APRN.EXTRUSION PRESS SUPERVISOR Pain Management [facility] * Shruthi Keita MA - 06/03/2022 11:08 AM EST Review of Systems Constitutional: Negative for activity [...] The patient is nervous/anxious. documented in this encounterOhiohealth Pickerington [facility]12-12-2022 Miscellaneous Notes* Telephone Encounter - Sruthi Piña LPN - 05/31/2022 8:37 AM EST Spoke with pt and information listed below given. Pt verbalizes understanding. Sruthi Piña LPN * Telephone Encounter - Bharti Coello Ma - 05/31/2022 8:33 AM EST Left message for patient to return call. Bharti Coello Ma * Telephone Encounter - Bharti Coello Ma - 05/31/2022 8:33 AM EST ----- Message from Jaimee Palomares PA-C sent at 05/29/2022 10:02 AM EST ----- Please advise CT chest shows no mass. Has atelectasis (lung tissue stuck together) which can come from mucus or damage to tissue from smoking. Thanks, Faustino Palomares PA-C documented in this encounterOhiohealth Pickerington [facility]12-07-2022 Miscellaneous Notes* Telephone Encounter - Deandra Centeno LPN - 05/26/2022 1:39 PM EST Patient requesting to have probiotic sent to pharmacy. Patient was told that insurance my not cover. * Telephone Encounter - Deandra Centeno LPN - 05/26/2022 1:39 PM EST ----- Message from Jenifer Yeager APRN.CNM sent at 05/26/2022 12:46 PM EST ----- Please notify patient she is positive for BV. Will treat with metronidazole gel at HS for 5 nights.If symptoms return in 4 weeks to come back for retesting. Probiotic by mouth once daily for 30 days. 1) No alcohol during treatment and for 24 hours after last dose. 2) No intercourse during treatment. 3) Probiotic by mouth once daily for 30 days or as needed. Jenifer Yeager APRN.CNM documented in this encounterOhiohealth Pickerington [facility]12-06-2022 History of Present illness Narrative* Jenifer Yeager APRN.CNM - 05/25/2022 2:47 PM EST Mariluz Garcia is a 52 year old female who presents for problem visit for vaginal discharge. HPI: Presents today with complaint of increased vaginal discharge and odor. States never went away after visit on 01/18/22 and diagnosed with Flagyl. New partner in last 6 months and was ok for STD testing. OB History T0 L0 SAB0 IAB0 Ectopic0 Multiple0 Live Births0 Um Nurse History LMP: Hysterectomy Age at Menarche: Age at First : Age at Menopause: Um Nurse History Comments: Sexual Activity: Not Currently; No [...] care 05/15/2020 HOSPITAL/ER FOLLOW UP Which facility: [facility] Dates of visit: 05/10-05/13/2020 Preadmission evaluation:ER with right-sided abdominal pain over 2-1/2 hours, [...] of admission 05/01/2021 Date of discharge: Facility: [facility] 05/01/2021 presented to the emergency room [...] malnutrition (HCC) 08/26/2020 Obesity PE (pulmonary thromboembolism) ([facility]) PTSD (post-traumatic stress disorder) Snoring [...] 8 hours as needed for pain. Take withfood. baclofen (LIORESAL) 10 mg tablet TAKE 1 [...] 2 Puffs as instructed every 4 hours asneeded for wheezing/shortness of breath. buPROPion SR (ZYBAN [...] tablet by mouth once daily. (Patient not taking:Reported on 05/07/2022) budesonide-formoterol (SYMBICORT) 160-4.5 mcg/actuation inhaler [...] external genitalia normal, normal Bartholin's glands, urethra, Bemiss's glands, no vulvar lesions, no cervical lesions, [...] Z11.3 Jenifer Yeager APRN.CNM documented in this encounterOhiohealth Pickering[facility]12-02-2022 Miscellaneous Notes* Telephone Encounter - Fadumo Romero RN - 05/21/2022 4:19 PM EST Patient has been identified by name and [...] you. Fadumo Romero RN documented in this encounterOhiohealth Pickering[facility]12-01-2022 Miscellaneous Notes* Telephone Encounter - Ling Huang LPN - 05/20/2022 10:32 AM EST Patient has visit tomorrow with SUPPORT TEAM MEMBER she is going to take her cuff with her tomorrow. After they take her BP she is going to use her cuff to check. She will then let us know if she needs a new cuff. * Telephone Encounter - Jaimee Palomares PA-C - 05/18/2022 5:06 PM EST Please schedule NV BP this week with home cuff to verify. Thanks, Faustino Palomares PA-C * Telephone Encounter - Hanna Mares RN - 05/17/2022 2:55 PM EST Patient returns call and reports that she [...] x and fell 3 x within a coupleof days. Recommended if patient is having blood pressure readings that high and passing out with episodes of falling an ED evaluation. Patient reports those symptoms aren't happening right now she just wants a new monitor because the current one can't be trusted. Hanna Mares RN * Telephone Encounter - Bharti Coello Ma - 05/17/2022 1:28 PM EST Left message for patient to return call. Bharti Coello Ma * Telephone Encounter - Jaimee Palomares PA-C - 05/17/2022 1:17 PM EST Yes I read that information. The point being, how does she know it is not accurate. Thanks, Faustino Palomares PA-C * Telephone Encounter - Jaimee Palomares PA-C - 05/17/2022 10:12 AM EST Recommend bring BP monitor to next visit and we will verify if reading correctly. 137/syst is not concerning. Thanks, Faustino Palomares PA-C * Telephone Encounter - Jaimee Foster RN - 05/17/2022 10:02 AM EST Patient reports she was taken off of lisinopril b/c her BP was too low 76/58. She is feeling fine. Her home BP machine is giving her either really high readings 108/186 or normal readings 137/something. States her home monitor is not working right b/c she is feeling fine. Asking pcp to send order to [facility] for a new BP monitor. documented in this encounterOhiohealth Pickerington [facility]11-25-2022 History of Present illness Narrative* Jaimee Palomares PA-C - 05/14/2022 11:00 AM EST 52 year old female with c/o hospital follow up 05/05/2022 patient called squad, transported to [facility] with lightheadedness andmultiple syncopal episodes one of them resulting in [...] sepsis work-up obtained. Blood pressure improved with 1L normal saline, does not appear septic. Because of syncope unknown, pancultured, recommended 24-hour observation. Admitted from ER to PCU with following problem list: 1. Recurrent syncope/ERICA: Appears to be vasovagal, repeat orthostatic vital signs, continue IV fluid and monitor on telemetry 2. Hypertension: Hold lisinopril 3. Hypercholesterolemia: Continue Lipitor 4. COPD without exacerbation with chest x-ray indicating bronchiolitis with tree-in-bud appearance,consider antibiotics 5. Chronic pain/anxiety/depression: Continue home medications [...] creatinine 0.83 with EGFR 77, BUN/Cr ratio 21.8-SEY10-HZ 8.6. 05/05/2022 urine culture negative growth on [...] care 05/15/2020 HOSPITAL/ER FOLLOW UP Which facility: [facility] Dates of visit: 05/10-05/13/2020 Preadmission evaluation:ER with right-sided abdominal pain over 2-1/2 hours, [...] of admission 05/01/2021 Date of discharge: Facility: [facility] 05/01/2021 presented to the emergency room [...] malnutrition (HCC) 08/26/2020 Obesity PE (pulmonary thromboembolism) ([facility]) PTSD (post-traumatic stress disorder) Snoring [...] tablet by mouth once daily. (Patient not taking:Reported on 05/07/2022) 30 tablet 5 ibuprofen (MOTRIN) 800 mg tablet Take 1 tablet by mouth every 8 hours as needed for pain. Take withfood. 30 tablet 1 baclofen (LIORESAL) 10 mg [...] needed for wheezing/shortness of breath. Use over 5- 15minutes. 120 mL 5 budesonide-formoterol (SYMBICORT) 160-4.5 mcg/actuation inhaler Inhale 2 Puffs as instructed twice daily. 1 Each 5 ferrous sulfate 325 mg (65 mg iron) tablet Take 1 tablet by mouth twice daily. 56 tablet 11 albuterol HFA (VENTOLIN HFA) 90 mcg/actuation inhaler Inhale 2 Puffs as instructed every 4 hours asneeded for wheezing/shortness of breath. 1 Inhaler 11 [...] without bruits. No JVD with HOB at 30degrees. Chest is normal shape. Lungs are clear to all coreas with good air exchange through out. HRRR without murmur or gallop. No lifts, heaves, or rubs. Abdomen: active bowel sounds throughout, soft, initially nontender, then had a sharp pain, probablyover a gas bubble in the left lower [...] months. Educated on lung nodule recurrence in [place]. - CT CHEST WO IVCON 3. Syncope, [...] patient's increased appetite and intake as well asnewly identified lung nodules, will have patient report [...] well. Jaimee Palomares PA-C documented in this encounterOhiohealth Pickerington [facility]11-22-2022 Miscellaneous Notes* Telephone Encounter - KYRA Fernandez - 05/11/2022 9:53 AM EST TC to patient who verbalizes understanding of providers message with no questions at this time. KYRA Fernandez * Telephone Encounter - Fatou Valencia LPN - 05/10/2022 5:51 PM EST Message left on patient's voicemail. Fatou Valencia LPN * Telephone Encounter - Fatou Valencia LPN - 05/10/2022 5:26 PM EST ----- Message from Memo Leahy Jr., MD sent at 05/09/2022 11:19 PM EST ----- Pt's B12 level decreasing over time. Should follow up with PCP for further monitoring and supplementation if necessary. Memo Leahy MD documented in this encounterOhiohealth Pickerington [facility]11-18-2022 History of Present illness Narrative* Memo Leahy Jr., MD - 05/07/2022 2:25 PM EST NEW PATIENT (CONSULT) HISTORY AND PHYSICAL EXAM PRIMARY CARE PHYSICIAN: Jaimee Palomares PA-C REASON FOR CONSULT: Cognitive impairment REFERRING PHYSICIAN: Jaimee Palomares PA-C CHIEF COMPLAINT: Memory problems Consultation requested by Jaimee Palomares PA-C for an opinion regarding chief complaint of No chief complaint on file. and my final recommendations will be communicated back to the requesting physician by way of sharedmedical record or letter via US mail. HISTORY [...] week ago. Memory fluctuates. States will have 1-2good days and 4-5 bad days per week. [...] anxiety and hearing voices. Pt was in [facility] ER yesterday due to syncope, hypotension [...] and bkwd) Sentence repeat: 07/22 Serial 7s: [id number] 08/20 Similar objects: 07/22 Orientation: May 07, 2022, Ignacio, Sherry Bradley 11/23 Delayed recall: 10/22 Clock Drawin/3 Cube [...] lesions, rash, and itching. PSYCHIATRIC: See HPI. HEMATOLOGIC/LYMPHATIC/IMMUNOLOGIC: I have internal bleeding but they do [...] 8 hours as needed for pain. Take withfood. baclofen (LIORESAL) 10 mg tablet TAKE 1 [...] 2 Puffs as instructed every 4 hours asneeded for wheezing/shortness of breath. buPROPion SR (ZYBAN [...] care 05/15/2020 HOSPITAL/ER FOLLOW UP Which facility: [facility] Dates of visit: 05/10-05/13/2020 Preadmission evaluation:ER with right-sided abdominal pain over 2-1/2 hours, [...] of admission 05/01/2021 Date of discharge: Facility: [facility] 05/01/2021 presented to the emergency room [...] resp. rate 18, weight 68 kg (150 lb),SpO2 97 %. GENERAL EXAM: General appearance: NAD, [...] papilledema, EOMI and without nystagmus, VFF to confrontation,facial sensation and strength are normal and symmetric, [...] exam is not suggestive of either. Appears cognitionand mental status acutally fluctuating rather than progressive declining and I suspect that this iseither due to metabolic derangements, pseudodementia with known [...] which included preparing to see the patient, jvqz-we-vipf patient care, completing clinical documentation, obtaining and/or reviewing separately obtained history, performing a medically appropriate examination, counseling and educating the pa tient/family/caregiver, ordering medications, tests, or procedures, independently interpreting results (not separately reported), and communicating results to the patient/family/caregiver. documented in this encounterOhiohealth Pickering[facility]11-18-2022 Miscellaneous Notes* Telephone Encounter - Sheila Granado - 05/07/2022 12:42 PM EST Patient called in leaving a voicemail asking for a call back. Nothing was stated what it was about. Sheila Granado documented in this encounterOhiohealth Pickerington [facility] Hospital11-04-2022 Miscellaneous Notes* Telephone Encounter - Maribell Baltazar LPN - 04/23/2022 1:13 PM EDT Patient has been identified by name and [...] you. Maribell Baltazar LPN documented in this encounterOhiohealth Pickerington [facility] Hospital10-31-2022 Miscellaneous Notes* Telephone Encounter - Zoraida [place] LPN - 04/19/2022 2:10 PM EDT Pt calls to report she takes 2-3 ibuprofen 800 tabs daily but only gets prescribed #30 rf 1 so pt runs out of medication quickly. Pt reports she did not get any ibuprofen in this month's delivery from [place] and was advised that she needed a [...] patient. Zoraida Garcia LPN documented in this encounterOhiohealth Pickerington [facility] Hospital10-13-2022 Instructions* Patient Instructions* Jaimee Palomares PA-C - 04/01/2022 9:37 AM EDT Desvenlafaxine: Patient drug information Access Orthohub Online for additional drug information, tools, and databases. Copyright 7144-7807 [employer]. All rights reserved. (For additional information see [...] or change the dose of any drug withoutchecking with your doctor. What are some things I need to know or do while I take this drug? Tell all of your health care providers that you take this drug. This includes your doctors, nurses,pharmacists, and dentists. It may take several months to see full effect. Avoid driving and doing other tasks or actions that call for you to be alert until you see how thisdrug affects you. To lower the chance of [...] chance of bleeding. Sometimes, bleeding can be life- threatening. Talk with the doctor. Some people may have a higher chance of eye problems with this drug. Your doctor may want you to have an eye exam to see if you have a higher chance of these eye problems. Call your doctor right awayif you have eye pain, change in eyesight, or swelling or redness in or around the eye. This drug can cause low sodium levels. Very low sodium levels can be life- threatening, leading to seizures, passing out, trouble breathing, or . This drug may affect certain lab tests. Tell all of your health care providers and lab workers thatyou take this drug. If you are 65 or older, use this drug with care. You could have more side effects. Tell your doctor if you are , plan on getting , or are breast- feeding. You will need to talk about the [...] right away if you have any of thefollowing signs or symptoms that may be related to a very bad side effect: Signs of an allergic reaction, like rash; hives; itching; red, swollen, blistered, or peeling skin with or without fever; wheezing; tightness in the chest or throat; trouble breathing, swallowing, ortalking; unusual hoarseness; or swelling of the mouth, [...] syndrome may happen. The risk may be greaterif you also take certain other drugs. Call your doctor right away if you have agitation; change in balance; confusion; hallucinations; fever; fast or abnormal heartbeat; flushing; muscle twitching orstiffness; seizures; shivering or shaking; sweating a lot; severe diarrhea, upset stomach, or throwi ng up; or very bad headache. What are some other side effects of this drug? All drugs may cause side effects. However, many people have no side effects or only have minor sideeffects. Call your doctor or get medical help [...] all information given to you. Follow all instructionsclosely. Take with or without food. Swallow whole [...] If you have any questions about this drug,please talk with your doctor, nurse, pharmacist, or other health care provider. If you think there has been an overdose, call your poison control center or get medical care right away. Be ready to tell or show what was taken, how much, and when it happened. Last Reviewed [id number] Consumer Information Use and Disclaimer This information [...] healthcare provider for complete information about the risksand benefits of using this medicine. The use of this information is governed by the Orthohub End User License Agreement, available at https://www.Hithru/en/solutions/Waffle/about/garcia. 2020 [employer]. and its affiliates and/or licensors. All rights reserved. Use of UpToDate is subject to the Subscription and License Agreement. Topic 47635 Version 147.0 documented in this encounterOhiohealth Pickerington [facility] Hospital10-13-2022 History of Present illness Narrative* Jaimee Palomares PA-C - 04/01/2022 8:40 AM EDT 52 year old female with c/o here [...] care 05/15/2020 HOSPITAL/ER FOLLOW UP Which facility: [facility] Dates of visit: 05/10-05/13/2020 Preadmission evaluation:ER with right-sided abdominal pain over 2-1/2 hours, [...] of admission 05/01/2021 Date of discharge: Facility: [facility] 05/01/2021 presented to the emergency room [...] 8 hours as needed for pain. Take withfood. 30 tablet 1 sofosbuvir-velpatasvir 400-100 mg Take [...] needed for wheezing/shortness of breath. Use over 5- 15minutes. 120 mL 5 budesonide-formoterol (SYMBICORT) 160-4.5 mcg/actuation inhaler Inhale 2 Puffs as instructed twice daily. 1 Each 5 ferrous sulfate 325 mg (65 mg iron) tablet Take 1 tablet by mouth twice daily. 56 tablet 11 albuterol HFA (VENTOLIN HFA) 90 mcg/actuation inhaler Inhale 2 Puffs as instructed every 4 hours asneeded for wheezing/shortness of breath. 1 Inhaler 11 [...] in no acute distress. Alert and oriented allspheres. Normal affect and cognition. Speech per usual. [...] schedule Jaimee Palomares PA-C documented in this encounterOhiohealth Pickerington [facility] Hospital10-07-2022 Miscellaneous Notes* Telephone Encounter - Deloris Troy MD - 03/26/2022 4:23 PM EDT Refill approved. Has appointment in April. Deloris Troy III, [place], [place] * Telephone Encounter - Odalys Brizuela MA - 03/26/2022 1:13 PM EDT [facility] Telephone Medication Refill Request Name/dose: BACLOFEN 10 Amount dispensed monthly: 60 Date last filled: 01/01/22 Date last seen in office: 04/16/2021 Provider: Deloris Troy MD Next scheduled visit: 05/06/22 Pharmacy: [facility] - [address] [place] [address] - [address] [phone] [address] [place] [address] Odalys Brizuela MA documented in this encounterOhiohealth Pickerington [facility] Hospital10-06-2022 Miscellaneous Notes* Telephone Encounter - Noy Mcintosh - 03/25/2022 2:33 PM EDT Patient arrived 17 minutes after scheduled appointment. I asked Shira if she would still be brendon tosee patient and she stated she would still see her but it would have to be after the patients who had already arrived on time for their appointments. Patient was presented with the option to stay andwait or reschedule and that it was up to her. Patient got frustrated and asked how long of a wait it would be. I did explain to patient that there were two other patients left on the schedule for theday and it depended on how fast or slow those appointments went. Patient then called ride and told them to come back and get her. I did inform patient that the policy is there is a 15 minute odalys per iod and after that she is subject to rescheduling but Shira did say she would see her just after the other patients. Patient still insisted on rescheduling. Patients new appointment is on 05/06 which was the first available at the [place] office. documented in this encounterOhiohealth Pickerington [facility] Hospital09-28-2022 History of Present illness Narrative* Sarahi Whitlock MD - 03/17/2022 11:11 AM EDT HPI Mariluz Garcia is a 51 year old [...] 8 hours as needed for pain. Take withfood. sofosbuvir-velpatasvir 400-100 mg Take one tablet by [...] 2 Puffs as instructed every 4 hours asneeded for wheezing/shortness of breath. buPROPion SR (ZYBAN [...] care 05/15/2020 HOSPITAL/ER FOLLOW UP Which facility: [facility] Dates of visit: 05/10-05/13/2020 Preadmission evaluation:ER with right-sided abdominal pain over 2-1/2 hours, [...] of admission 05/01/2021 Date of discharge: Facility: [facility] 05/01/2021 presented to the emergency room [...] 03/17/22 TIME: 11:11 AM documented in this encounterOhiohealth Pickerington [facility] Hospital09-26-2022 Miscellaneous Notes* Telephone Encounter - Renee Howell LPN - 03/15/2022 1:19 PM EDT Pharmacy calls in requesting the following refill(s): Requested Prescriptions Pending Prescriptions Disp Refills ibuprofen (MOTRIN) 800 mg tablet 30 tablet 1 Sig: Take 1 tablet by mouth every 8 hours as needed for pain. Take with food. documented in this encounterOhiohealth Pickerington [facility] Hospital09-22-2022 Miscellaneous Notes* Telephone Encounter - Bharti Sherman Ma - 03/11/2022 12:17 PM EDT Patient approved for Hep C treatment through medicaid, will ship from [facility]. Patient to call when receives medication in hand to review treatment protocol and follow up labs. Requested Prescriptions Pending Prescriptions Disp Refills sofosbuvir-velpatasvir 400-100 mg 28 tablet 2 Sig: Take one tablet by mouth, with or without food, once daily same time of day Bharti Sherman CMA documented in this encounterOhiohealth Pickering[facility]09-09-2022 Miscellaneous Notes* Telephone Encounter - Jaimee Foster RN - 02/26/2022 4:19 PM EDT Patient has been identified by name and [...] you. Jaimee Foster RN documented in this encounterOhiohealth Pickerington [facility] Hospital09-08-2022 History of Present illness Narrative* Jaimee Palomares PA-C - 02/25/2022 2:00 PM EDT 51 year old female with c/o low BP, dizziness which start Tuesday. 17 minutes late for appointment. 02/24/2022 transforaminal injection L5-S1 bilateral Dr. Troy. Was dizzy with low BP but had procedure anyway. Stumbled in their office but didn't pass out. Was NPO after midnight. Sent from their office to the emergency department 02/24/2022 arrived at [facility] emergency department with complaint of hypertension,lightheadedness if she stands up quickly, twitches all over her body at times. Vital signs 90 7.9F- Except RBC slightly low at 3.88, hematocrit slightly low 36.8 neutrophil percent 90.7 with absoluteneutrophil normal 6.5, absolute lymphs low at 0.4. [...] care 05/15/2020 HOSPITAL/ER FOLLOW UP Which facility: [facility] Dates of visit: 05/10-05/13/2020 Preadmission evaluation:ER with right-sided abdominal pain over 2-1/2 hours, [...] of admission 05/01/2021 Date of discharge: Facility: [facility] 05/01/2021 presented to the emergency room [...] needed for wheezing/shortness of breath. Use over 5- 15minutes. 120 mL 5 budesonide-formoterol (SYMBICORT) 160-4.5 mcg/actuation [...] 2 Puffs as instructed every 4 hours asneeded for wheezing/shortness of breath. 1 Inhaler 11 ibuprofen (MOTRIN) 800 mg tablet Take 1 tablet by mouth every 8 hours as needed for pain. Take withfood. 30 tablet 1 buPROPion SR (ZYBAN SR; [...] Received no reply to staff message to traffic safety administrator Dr. Josué Blevins: We will have appointment [...] mildly slurred speech which I do not thinkis significantly changed however patient does have difficulty [...] DIFF Jaimee Palomares PA-C documented in this encounterOhiohealth Pickering[facility]09-07-2022 Miscellaneous Notes* Telephone Encounter - Liliana London Ma - 02/24/2022 1:19 PM EDT Notified pt of message below. Left appt as scheduled with Faustino at current time. Will route to Faustino to notify him of what's going on. Liliana London Ma * Telephone Encounter - Memo Huber MD - 02/24/2022 1:16 PM EDT I would go today to er * Telephone Encounter - Laina Orellana RN - 02/24/2022 12:55 PM EDT Patient calling to say she had spinal injection done at [facility] today and her blood pressure was [...] today? Laina Orellana RN documented in this encounterOhiohealth Pickering[facility]09-07-2022 Nurse Note* Joselito Jansen RN - 02/24/2022 10:49 AM EDT Patient advised to notify her PCP of blood pressure. Patient states she has not taken her bp at home, but at times feels dizzy and wonders if it is from low bp. * Joselito Jansen RN - 02/24/2022 10:44 AM EDT Patient's bp currently 87/61 after food/fluids. Patient denies dizziness, shortness of breath, or chest pain. * Joselito Jansen RN - 02/24/2022 10:32 AM EDT Patient's blood pressure ranging from 72/55 to 89/74. Patient denies dizziness, shortness of breathor chest pain. PO fluids offered and taken. Patient offered and is eating crackers. documented in this encounterOhiohealth Pickerington [facility] Hospital09-07-2022 Miscellaneous Notes* Operative Report - Deloris Troy MD - 02/24/2022 9:59 AM EDT OPERATIVE/PROCEDURE REPORT LOG ID: [id number] SURGERY/PROCEDURE DATE: 02/24/2022 INCISION/PROCEDURE START TIME: 10:05 AM INCISION CLOSE/PROCEDURE END TIME: 10:19 AM SURGEON(S)/PROCEDURALIST(S) AND AERODYNAMICS TEACHER(S): Surgeon(s) and Role: * Deloris Troy MD - Primary No Additional Staff SURGERY/PROCEDURE(S): Transforaminal Epidural Steroid Injection bilateral L5-S1 Injectate: A total of 6cc, consisting of 1cc of Dexamethasone (10mg/cc) the remainder consisting ofNormal Saline An additional 5cc of 1% Lidocaine [...] inserted toward the target using a trajectory viewalong the fluoroscope beam. Under AP and lateral [...] 2022 TIME: 10:21 AM documented in this encounterOhiohealth Pickerington [facility] Hospital09-07-2022 History and physical note * Deloris Troy MD - 02/24/2022 9:46 AM EDT UPDATED HISTORY AND PHYSICAL EXAMINATION SERVICE DATE: 02/24/2022 SERVICE TIME: 9:46 AM PHYSICAL EXAM MUST BE COMPLETED ON ADMISSION The History and Physical (completed in the past 30 days) has been reviewed and the patient has beenexamined. The contents accurately reflect the patient's condition [...] 2022 TIME: 9:46 AM documented in this encounterOhiohealth Pickering[facility]09-06-2022 Miscellaneous Notes* Telephone Encounter - Laura Pena - 02/23/2022 3:10 PM EDT I have attempted to contact this patient by phone, Left brief message on cell voicemail stating to give us a call back at [phone] Laura Pena documented in this encounterOhiohealth Pickerington [facility] Hospital08-31-2022 Miscellaneous Notes* Telephone Encounter - Suzie Powell - 02/17/2022 2:38 PM EDT Order signed by Dr. Huber and faxed back to [facility]. Suzie Powell documented in this encounterOhiohealth Pickerington [facility] Hospital08-25-2022 History of Present illness Narrative* Jaimee Palomares PA-C - 02/11/2022 10:00 AM EDT 51 year old female with c/o here for medication follow up. 01/01/2022 tripped and fell landing on her outstretched right wrist, with deformity she went to [facility] ED where x-rays confirmed fracture right distal radius Palomares's fracture withcomminuted intra-articular distal radial fracture and angulated fragment, wrist was reduced under an esthesia. She was splinted and referred to [place] [facility] Dr. Prasanth Jones. Started rehab tomorrow [...] liver, without focal discrete hepatic lesion. Status postcholecystectomy. 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 Interval history: no recent testing [...] Hair falling out Sees Dr. Renata Turner [facility] Stress incontinence Current medications: Bacterial vaginosis [...] care 05/15/2020 HOSPITAL/ER FOLLOW UP Which facility: [facility] Dates of visit: 05/10-05/13/2020 Preadmission evaluation:ER with right-sided abdominal pain over 2-1/2 hours, [...] of admission 05/01/2021 Date of discharge: Facility: [facility] 05/01/2021 presented to the emergency room [...] malnutrition (HCC) 08/26/2020 Obesity PE (pulmonary thromboembolism) ([facility]) PTSD (post-traumatic stress disorder) Snoring [...] needed for wheezing/shortness of breath. Use over 5- 15minutes. 120 mL 5 budesonide-formoterol (SYMBICORT) 160-4.5 mcg/actuation [...] 2 Puffs as instructed every 4 hours asneeded for wheezing/shortness of breath. 1 Inhaler 11 ibuprofen (MOTRIN) 800 mg tablet Take 1 tablet by mouth every 8 hours as needed for pain. Take withfood. 30 tablet 1 buPROPion SR (ZYBAN SR; [...] no acute distress. Alert and oriented all spheres.Normal affect and cognition. Speech normal. No deficits [...] no masses liver edge 2 fingers below RCM.No Spleen not palpable. No fluid wave or [...] (HCC) - ICD9: 297.1, ICD10: F22 Sees [facility], stable- stopped latuda, has follow up - CBC + DIFF - COMP METABOLIC PANEL - TSH BLD 16. Stress incontinence - ICD9: [id number], ICD10: N39.3 Oxybutynin did not help. Discussed [...] months. Jaimee Palomares PA-C documented in this encounterOhiohealth Pickerington [facility] Hospital08-19-2022 Instructions* Patient Instructions* Abi Davey PA-C - 02/05/2022 8:07 AM [...] blood thinners (this typically requires approval from theprescribing doctor) and non-steroidal anti-inflammatory medications (except Celebrex). By using X-ray guidance (fluoroscopy) we minimize the risk of injury to the structure along the course of the needle. The sensory and motor stimulation reduce the risk of injury to other nerves. Who should NOT have this injection? If you have an active infection, poorly controlled hypertension, diabetes, congestive heart failureor are unable to stop taking blood thinners, you may not be a candidate for these types of injections. documented in this encounterOhiohealth Pickerington [facility] Hospital08-19-2022 History of Present illness Narrative* Abi Davey PA-C - 02/05/2022 8:00 AM EDT AMBULATORY TELEPHONE VISIT Mariluz Garcia 1970 has [...] Previous visit 01/27/22: Since last encounter, Mariluz G Jose reports that the chronic problem(s) listed above are Better. Pain score 6/10. Patient underwent MBB Bilateral C4/5; C5/6; C6/7 on 01/20/[address] Troy. Patient reports 80% relief from the injection. Symptom relief lasted 5 hours. During this time the patient was able to move,walk and participate in their ADL's with less [...] or double vision) Respiratory: Negative (No Cough, [id number]-zh-[id number], Dyspnea on exertion, wheezing) Cardiovascular: Negative (No [...] blood thinners (this typically requires approval from theprescribing doctor) and non-steroidal anti-inflammatory medications (except Celebrex). By using X-ray guidance (fluoroscopy) we minimize the risk of injury to the structure along the course of the needle. The sensory and motor stimulation reduce the risk of injury to other nerves. Who should NOT have this injection? If you have an active infection, poorly controlled hypertension, diabetes, congestive heart failureor are unable to stop taking blood thinners, you may not be a candidate for these types of injections. Abi Davey PA-C ([place]) Pain [facility] documented in this encounterOhiohealth Pickerington [facility] Hospital08-12-2022 Miscellaneous Notes* Telephone Encounter - Maribell Baltazar MATTEO - 01/29/2022 2:58 PM EDT Patient has been identified by name and [...] you. Maribell Baltazar LPN documented in this encounterOhiohealth Pickerington [facility] Hospital08-12-2022 Miscellaneous Notes* Telephone Encounter - SHERLEY Sim - 01/29/2022 1:45 PM EDT Patient call and LVM stated she missed her appt on 01/[address] Troy and needs to reschedule. I have attempted to contact this patient by phone, Left brief message on cell voicemail stating to call back to reschedule. Cris Lopez [place] to Dr. Roy, Dr. Palma, Workers Compensation [facility] P: [id number] / F: [phone] / documented in this encounterOhiohealth Pickerington [facility] Hospital08-10-2022 Instructions* Patient Instructions* Abi Davey PA-C - 01/27/2022 8:08 AM [...] blood thinners (this typically requires approval from theprescribing doctor) and non-steroidal anti-inflammatory medications (except Celebrex). By using X-ray guidance (fluoroscopy) we minimize the risk of injury to the structure along the course of the needle. The sensory and motor stimulation reduce the risk of injury to other nerves. Who should NOT have this injection? If you have an active infection, poorly controlled hypertension, diabetes, congestive heart failureor are unable to stop taking blood thinners, you may not be a candidate for these types of injections. documented in this encounterOhiohealth Pickerington [facility] Hospital08-10-2022 History of Present illness Narrative* Abi Davey PA-C - 01/27/2022 8:00 AM EDT AMBULATORY TELEPHONE VISIT Mariluz Christine Jose 1970 has consented to this telephone encounter. Persons Present: patient Chief Complaint/Reason: follow up MBB HPI: 51 year old female with significant past medical history for low back surgery x 2, prior THC usage and prior alcohol abuse, COPD, GERD, Prior PE, Obesity, who presents with complaint(s) of recurrent axial low back pain, radicular symptoms into bilateral posterior thighs, suggestive of spinal st enosis. Interval History: Since last encounter, Mariluz Christine Jose reports that the chronic problem(s) listed above are Better. Pain score 6/10. Patient underwent MBB Bilateral C4-5; C5-6; C6-7 on 01/20/[address] Troy. Patient reports 80% relief from the injection. Symptom relief lasted 5 hours. During this time the patient was able to move,walk and participate in their ADL's with less pain and difficulty. Patient denies any adverse side effects such as nausea, vomiting, hives, fever, injection site redness/induration, headache, or new radicular symptoms From Previous visit 12/09/21 (virtual): She was last seen in August 2021 for a lumbar epidural steroid injection with Dr. Duong and did notreturn for follow-up. She presents today with increased [...] or double vision) Respiratory: Negative (No Cough, [id number]-qx-[id number], Dyspnea on exertion, wheezing) Cardiovascular: Negative (No [...] blood thinners (this typically requires approval from theprescribing doctor) and non-steroidal anti-inflammatory medications (except Celebrex). By using X-ray guidance (fluoroscopy) we minimize the risk of injury to the structure along the course of the needle. The sensory and motor stimulation reduce the risk of injury to other nerves. Who should NOT have this injection? If you have an active infection, poorly controlled hypertension, diabetes, congestive heart failureor are unable to stop taking blood thinners, you may not be a candidate for these types of injections. Abi Davey PA-C ([place]) [facility] documented in this encounterOhiohealth Pickerington Methodist Hospital08-01-2022 History of Present illness Narrative* Nguyen Leavitt APRN.EXTRUSION PRESS SUPERVISOR - 01/18/2022 11:08 AM EDT Mariluz Garcia is a 51 year old [...] external genitalia normal, normal Bartholin's glands, urethra, Bemiss's glands, no vulvar lesions, good vaginal support, [...] Level: 4 - Moderate documented in this encounterOhiohealth Pickerington Methodist Hospital07-18-2022 Miscellaneous Notes* Telephone Encounter - Denice Gr APRN.CNP - 01/04/2022 2:19 PM EDT Please change her to in person with a provider. She has not been physically seen since august for a procedure. If she needs more norco she needs a NAOIC and uds Denice Gr APRN.CNP * Telephone Encounter - Deloris Troy MD - 01/04/2022 2:06 PM EDT I can call in 7 days of [...] virtual appointment tomorrow. PDMP reviewed, had 10 Kelayres on 01/01. Will write 28 Kelayres /, must last a full 7 days. Deloris Troy III, [place], [place] * Telephone Encounter - Laura Pena - 01/04/2022 11:13 AM EDT Patient called and left a voicemail stating that she has fallen on Tuesday and broken her arm. She was sent home with medications and they are now gone. She can't sleep or eat because she is in so much pain and needs something to help. Please advise. Laura Pena documented in this encounterOhiohealth Pickerington Methodist Hospital07-18-2022 Miscellaneous Notes* Telephone Encounter - Noy Mcintosh - 01/04/2022 11:28 AM EDT Called patient to inform her, mailed her the numbers for the other home health agencies per her request * Telephone Encounter - Denice Gr APRN.CNP - 01/04/2022 10:41 AM EDT Please let the pt know Denice Gr APRN.ALYSSA * Telephone Encounter - SHERLEY Ayala - 01/04/2022 10:10 AM EDT Thank you for the referral of your patient to [facility]. At this time, we are unable to accommodate your patient s needs in a safe and timely fashion. In order to help your patient receive quality home care, we have included reputable agencies that service this area: [facility] or [phone]. [place] [facility] Phone [place] Please contact these agencies and they will work with your patient to arrange timely services. documented in this encounterOhiohealth Pickerington Methodist Hospital07-08-2022 Miscellaneous Notes* Telephone Encounter - Emma Torres Sec - 12/25/2021 2:07 PM EDT [facility] to [facility]. Emma Torres Fibroscan reviewed. F2S2 Bharti - can you check on the Hep C treatment status? Josué Blevins MD documented in this encounterOhiohealth Pickerington Methodist Hospital06-28-2022 Instructions* Patient Instructions* Blaine Ann MD - 12/15/2021 8:47 AM EDT It was great to see you today! You have urge and stress incontinence. Lets try a bladder relaxant and Kegel exercises. I want you to see Dorothy in 6 weeks to see how things stand. documented in this encounterOhiohealth Pickerington Methodist Hospital06-28-2022 History of Present illness Narrative* Blaine Ann MD - 12/15/2021 8:25 AM EDT Images from the original note were not included. [facility] [place] NEW PATIENT ENCOUNTER HISTORY OF PRESENT ILLNESS: [...] Final No results found for this basename: uglucpoc,ubilipoc,uketonpoc,usgpoc,uhbpoc,uphpoc,upropoc,uuropoc ,unitpoc,uwbcpoc,ucolpoc,uclarpoc MEDICATIONS oxybutynin ER (DITROPAN XL) 10 mg [...] mcg/actuation inhaler, Inhale 2 Puffs as instructed twicedaily. Cholecalciferol, Vitamin D3, (VITAMIN D) 25 mcg [...] care 05/15/2020 HOSPITAL/ER FOLLOW UP Which facility: [facility] Dates of visit: 05/10-05/13/2020 Preadmission evaluation:ER with right-sided abdominal pain over 2-1/2 hours, [...] of admission 05/01/2021 Date of discharge: Facility: [facility] 05/01/2021 presented to the emergency room [...] extrapolated by contextual derivation. documented in this encounterOhiohealth Pickerington Methodist Hospital06-23-2022 Miscellaneous Notes* Telephone Encounter - Fadumo Romero RN - 12/10/2021 2:20 PM EDT Patient has been identified by name and [...] you. Fadumo Romero RN documented in this encounterOhiohealth Pickerington Methodist Hospital06-23-2022 Miscellaneous Notes* Telephone Encounter - Jenifer Sherman - 12/10/2021 8:27 AM EDT 1.Are you diabetic No 2. Are you [...] days prior to their first dose of theCOVID vaccine. They should not receive any procedure containing steroids in the time frame between their 1st and 2nd doses of the COVID vaccine. They should not receive a procedure containing steroids 14 days after their 2nd dose of the COVID vaccine.) Jenifer Sherman documented in this encounterOhiohealth Pickerington [facility] Hospital06-22-2022 Miscellaneous Notes* Telephone Encounter - Denice Gr APRN.CNP - 12/09/2021 3:22 PM EDT Please see below regarding home care Denice Gr APRN.ALYSSA * Telephone Encounter - SHERLEY Castorena - 12/09/2021 3:03 PM EDT Thank you for the referral of your patient to [facility]. At this time, we are at capacity and are unable to accept your patient. In order to help your patient receive quality home care, we have included reputable agencies that service this area: [facility] [phone] or A [phone]. Please contact this agency and they will work with your patient to arrange timely services. Thank you, SHERLEY Castorena 12/09/2021 3:03 PM documented in this encounterOhiohealth Pickerington [facility] Hospital06-22-2022 Instructions* Patient Instructions* Denice Gr APRN.CNP - 12/09/2021 2:51 PM EDT Ice and heat as tolerated Activity as tolerated documented in this encounterOhiohealth Pickerington Methodist Hospital06-20-2022 History of Present illness Narrative* Denice Gr APRN.CNP - 12/07/2021 11:33 AM EDT AMBULATORY TELEPHONE VISIT Mariluz Garcia has consented [...] and assume there are 5 lumbar-type vertebrae. House Repairer: CJ Transcribe Date/Time: Jun 05 2021 11:26A Dictated by : GITA MALHOTRA MD This examination was interpreted and the report reviewed and electronically signed by: GITA MALHOTRA MD on Jun 05 2021 11:36AM EST Results-Findings * * *Final Report* * * DATE OF EXAM: Jun 05 2021 10:50AM [facility] 0303 - MRI LUMBAR SPINE WO [...] This information is taken directly from the eating disorder psychologist system. TECHNIQUE: Routine lumbosacral spine MR protocol [...] scoliotic curvature convex left visible on the gastroenterologist. [place] at L4-L5. Mild straightening of usual lumbar [...] impingement of the distal cord within the ldvxh-sy-nipg. Paraspinal soft tissues: As above. No paraspinal [...] annulus, and facet degenerative change contributes to dkdl-ws-[id number] right foraminal narrowing. L4-L5: Disk bulging, loss [...] Impression IMPRESSION: Spondylosis of the cervical spine. House Repairer: CJ Transcribe Date/Time: Nov 12 2021 4:07P [...] were discussed with the patient. The patient waseducated about special protocols to mitigate any exposure [...] second diagnostic medial branch block here if short- term relief only. We could consider RFA She is going to need PT when she is feeling better for a strengthening program. I was unable to seeher as we did a telephone visit today. But she is describing quite a bit of deconditioned state ORT was 10 or high risk for opioid abuse Total Time Spent: 15 minutes Denice Gr APRN.EXTRUSION PRESS SUPERVISOR documented in this encounterOhiohealth Pickerington [facility] Hospital06-20-2022 Miscellaneous Notes* Telephone Encounter - Bharti Sherman Ma - 12/07/2021 8:42 AM EDT Spoke with Mariluz, gave her the number to schedule her fibroscan at [facility], and let her know she can get her labs done at the [facility] for Hep C meds. Bharti Sherman CMA documented in this encounterOhiohealth Pickerington Methodist Hospital06-10-2022 Nurse Note* Agustina Gonzalez RN - 11/27/2021 3:09 PM EDT Pt states readines for discharge. * Agustina Gonzalez RN - 11/27/2021 3:[address] Blevins at bedside speaking with mario. documented in this encounterOhiohealth Pickerington Methodist Hospital06-10-2022 History and physical note * Josué Blevins MD - 11/27/2021 2:30 PM EDT HISTORY AND PHYSICAL Mariluz Garcia, 51 year [...] None Josué Blevins MD documented in this encounterOhiohealth Pickerington [facility] Hospital06-06-2022 Miscellaneous Notes* Telephone Encounter - Sydney Bowens - 11/23/2021 10:03 AM EDT Faxed over fibroscan to [facility]. Asked for them to contact patient directly to [facility]. Sydney Bowens documented in this encounterOhiohealth Pickerington Methodist Hospital06-06-2022 Instructions* Patient Instructions* Josué Blevins MD - 11/23/2021 9:40 AM EDT Images from the original note were not included. Bowel Preparation Instructions for: Golytely, Nulytely, Trilyte or Colyte (polyethylene glycol 3350and electrolytes) IF YOU DO NOT FOLLOW THESE [...] If you do not have a responsible wagon driver salesperson (family member or friend) with you to take you home, your exam cannot be done with sedation and will be cancelled. Please bring a list of all of your current medications, including any Over-the Counter medications with you. Medications If you take insulin, diabetic medications or blood thinners such as Coumadin (warfarin), Plavix (clopidogrel), Ticlid (ticlopidine hydrochloride), Agrylin (anagrelide), Xarelto (Rivaroxaban), Pradaxa(Dabigatran), Eliquis (Apixaban), and Effient (Prasugrel). You MUST [...] Golytely, Nulytely, Trilyte or Colyte (polyethylene glycol 3350and electrolytes) Three (3) Days Before Your Colonoscopy [...] your exam. 2 05/2019 documented in this encounterOhiohealth Pickerington Methodist Hospital06-06-2022 History of Present illness Narrative* Josué Blevins MD - 11/23/2021 9:17 AM EDT CHIEF COMPLAINT: Patient presents with: Chronic Hep C: Labs 11/12/21 This consult was requested by Jaimee Palomares PA-C for an opinion regarding hepatitis C. My final recommendations will be communicated to the requesting health care provider by way of the shared medical record for internal providers or letter via the [employer] [employer] for external providers. HPI: Mariluz [...] by friends. Two sexual partners in the last8 years, says one of them in [place]. Had blood transfusion few years ago for [...] care 05/15/2020 HOSPITAL/ER FOLLOW UP Which facility: [facility] Dates of visit: 05/10-05/13/2020 Preadmission evaluation:ER with right-sided abdominal pain over 2-1/2 hours, [...] of admission 05/01/2021 Date of discharge: Facility: [facility] 05/01/2021 presented to the emergency room with acute alcohol intoxication, initial alcohol level 7-8. Acknowledges over the last 5 months drinking 15 packs a day at 8% alcohol (natty josealfa). Vital signs 96.6 F-78-18-111/73-98%. Appearance was no acute distress. WBC 7.9 Hgb 13.8 HCT 39 GERD (gastroesophageal reflux disease) Hyperglycemia Hypertension Lung abscess ([facility]) saw Néstor Li and Dr. Zarate. Major depression Mild protein-calorie malnutrition ([facility]) 08/26/2020 Obesity PE (pulmonary thromboembolism) ([facility]) PTSD (post-traumatic stress disorder) Snoring [...] HYSTERECTOMY HX LAPAROSCOPY SURG CHOLECYSTECTOMY 05/12/2020 NEUROPLASTY &/TRANSPOS MEDIAN [...] 2 Puffs as instructed every 4 hours asneeded for wheezing/shortness of breath. omeprazole (PRILOSEC) 40 mg capsule Take 1 capsule by mouth once daily. tiotropium bromide (SPIRIVA RESPIMAT) 2.5 mcg/actuation inhaler Inhale 2 Puffs as instructed once daily. ibuprofen (MOTRIN) 800 mg tablet Take 1 tablet by mouth every 8 hours as needed for pain. Take withfood. buPROPion SR (ZYBAN SR; WELLBUTRIN SR) 150 [...] food in causing/worsening GERD like chocolates, alcohol, tomatoes,bananas, onions, coffee, etc is controversial and if certain food worsens GERD, avoid or limit intake. RTC 3 months/PRN. Josué Blevins MD DATE: 11/23/21 TIME: 9:24 AM CC: Jaimee Palomares PA-C documented in this encounterOhiohealth Pickerington [facility] Hospital05-26-2022 Instructions* Patient Instructions* Jaimee Palomares PA-C - 11/12/2021 2:41 PM [...] exercise, you will have fewer urinary accidents. Afterthree to four months, you will notice an even bigger difference with better urinary control. Can These Exercises Harm Me? No, these exercises cannot harm you in any way. Most people find them relaxing and easy. If you getback pain or stomach pain after you exercise, you are probably trying too hard and using stomach orback muscles. If you experience headaches, you are also tensing your chest muscles and probably holding your breath. documented in this encounterOhiohealth Pickerington [facility] Hospital05-26-2022 History of Present illness Narrative* Jaimee Palomares PA-C - 11/12/2021 2:00 PM EDT 51 year old female with c/o follow up Was in ER last month: 10/12/2021 presented [facility] emergency room with complaint of chest pain via EMS.Worsening over 4 days, sharp, left-sided, worse with overhead movement and certain arm movements aswell as taking deep breath. Physical exam: Vital signs 98.6 F-81-14-150/103-97% RA. Described as well- nourished and developed, no acute distress, chest wall negative for tenderness. Lab: CBC within normal limits except Hgb 15.7, lymph percent 15.9, [place] 14.0, eos 5.3. D-dimer elevated at 0.68. Chemistry profile within normal limits. Troponin 1 within normal limits at 4. Chest x-ray: No acute findings. Chest CTA: No evidence of pulmonary embolus, positive for pulmonary emphysema. EKG: Normal sinus rhythm ventricular rate 78, no ischemic changes. Patient discharged on prednisone 60 mg daily x5 days, naproxen 500 mg p.o. twice daily. Moved to [place] from [facility]. Current concerns: Hips are bothering her. After she walks limited distances hips bilaterally ache to point she has tostop and sit to recover. Counting reference: Lumbosacral [...] Benztropine 0.5 mg daily at bedtime Psychiatry C[facility] REEL[facility]. Feels [...] care 05/15/2020 HOSPITAL/ER FOLLOW UP Which facility: [facility] Dates of visit: 05/10-05/13/2020 Preadmission evaluation:ER with right-sided abdominal pain over 2-1/2 hours, [...] of admission 05/01/2021 Date of discharge: Facility: [facility] 05/01/2021 presented to the emergency room [...] Zarate. Major depression Obesity PE (pulmonary thromboembolism) (HCC) PTSD (post-traumatic [...] Pain With Left-Sided Sciatica Pe (Pulmonary Thromboembolism) ([facility]) Hyperglycemia Stasis Edema Right Lumbar Radiculopathy Obesity, Class III, BMI >= 40 (morbid obesity) E66.01 Delusional Disorder (Hcc) Chronic Low Back Pain With Sciatica Abnormal Echocardiogram Chronic Left-Sided Low Back Pain With Sciatica Copd (Chronic Obstructive Pulmonary Disease) With Chronic Bronchitis ([facility]) Positive Urine Drug Screen Mild Protein-Calorie Malnutrition [...] needed for wheezing/shortness of breath. Use over 5- 15minutes. 120 mL 5 baclofen (LIORESAL) 10 mg [...] 2 Puffs as instructed every 4 hours asneeded for wheezing/shortness of breath. 1 Inhaler 11 omeprazole (PRILOSEC) 40 mg capsule Take 1 capsule by mouth once daily. 30 capsule 5 tiotropium bromide (SPIRIVA RESPIMAT) 2.5 mcg/actuation inhaler Inhale 2 Puffs as instructed once daily. 1 Each 5 ibuprofen (MOTRIN) 800 mg tablet Take 1 tablet by mouth every 8 hours as needed for pain. Take withfood. 30 tablet 1 buPROPion SR (ZYBAN SR; [...] shoulders, reduced ROM with restrictions in sidebending androtation, negative Spurling sign. Back without midline tenderness, positive tender trigger points thoracic paraspinal and also lumbarparaspinal. Chest is normal shape. Lungs are clear [...] including maintaining weight, limiting caffeine, no meals threehours before sleep and head of bed elevation [...] with x-rays. 8. Stress incontinence - ICD9: [id number], ICD10: N39.3 - CONSULT TO PHYSICAL THERAPY [...] needed. Jaimee Palomares PA-C documented in this encounterOhiohealth Pickerington Methodist Hospital05-20-2022 Miscellaneous Notes* Telephone Encounter - Luis Mascorro LPN - 11/06/2021 3:57 PM EDT Schedulers please assist pt with scheduling over due follow up appt. * Addendum Note - Jaimee Palomares PA-C - 11/06/2021 3:53 PM EDT Addended by: Jaimee PALOMARES on: 11/06/2021 03:53 PM Modules accepted: Orders * Telephone Encounter - Jaimee Palomares PA-C - 11/06/2021 3:53 PM EDT Please schedule OV for follow up Fasting [...] NATALIO: No Authorizing Provider: Jaimee PALOMARES PA-C * Telephone Encounter - Luis Mascorro LPN - 11/06/2021 12:29 PM EDT [facility] 07/23/21Apr no upcoming appt * Telephone Encounter - Laisha Castañeda - 11/06/2021 11:56 AM EDT Patient has been identified by name and [...] notify patient. Laisha Castañeda documented in this encounterOhiohealth Pickerington [facility] Hospital05-20-2022 Miscellaneous Notes* Telephone Encounter - Luis Mascorro LPN - 11/06/2021 12:28 PM EDT [facility] 07/23/21Apr no upcoming appt * Telephone Encounter - Laisha Castañeda - 11/06/2021 11:52 AM EDT Patient has been identified by name and [...] notify patient. Laisha Castañeda documented in this encounterOhiohealth Pickerington [facility] Hospital05-06-2022 Miscellaneous Notes* Telephone Encounter - Deloris Troy MD - 10/23/2021 1:24 PM EDT Thanks for the update. Baclofen for 90 days sent to pharmacy (including refills), she will need follow- up prior to next script. Deloris Troy III, [place], [place] * Telephone Encounter - Odalys Brizuela MA - 10/23/2021 9:29 AM EDT [facility] Telephone Medication Refill Request Name/dose: Baclofen 10 mg Amount dispensed monthly: 60 Date last filled: 04/16/2021 Date last seen in office: 04/16/2021 Provider: Deloris Troy MD Next scheduled visit: none Change in Pharmacy? No Odalys Brizuela MA * Telephone Encounter - Jenifer Sherman - 10/21/2021 4:35 PM EDT Called pt, she missed her appt today. Pt stated that her pharmacy called her and told her that she had no more refills on her Baclofen. Please advise. Jenifer Sherman documented in this encounterOhiohealth Pickerington Methodist Hospital05-04-2022 Miscellaneous Notes* Telephone Encounter - Jenifer Sherman - 10/21/2021 4:30 PM EDT No Show Documentation Mariluz Garcia no showed for an appointment on 10/21/21 with Denice Gr APRN.EXTRUSION PRESS SUPERVISOR at 7:45. She was scheduled for follow [...] 21, 2021 4:31 PM documented in this encounterOhiohealth Pickerington Methodist Hospital04-25-2022 Miscellaneous Notes* Telephone Encounter - Renata Gonzalez RN - 10/12/2021 8:40 AM EDT Protocol recommends call 911 now. Pt was [...] 11. : Pt denies. Protocols used: CHEST IELD-QDSRT-HS documented in this encounterOhiohealth Pickerington Methodist Hospital04-20-2022 Miscellaneous Notes* Telephone Encounter - Ling Huang LPN - 10/07/2021 3:37 PM EDT Received and placed on providers desk to sign. We did not get all forms with the first fax. * Telephone Encounter - Laina Orellana RN - 10/07/2021 2:20 PM EDT [facility] calling to say they are faxing CMN to PCP office to be completed for order for Adult Diapers/Pads. Laina Orellana RN documented in this encounterOhiohealth Pickerington [facility] Hospital04-18-2022 Miscellaneous Notes* Telephone Encounter - Trina Newton Ma - 10/05/2021 8:43 AM EDT Pt. Previously scheduled 11/10. Will close TE at this time. * Telephone Encounter - Jaimee Palomares PA-C - 10/04/2021 5:56 PM EDT Please schedule: Telephone on 10/04/21 [facility] BILAT US BREAST LTD LT US BREAST LTD RT Thanks, Faustino Palomares PA-C documented in this encounterOhiohealth Pickerington [facility] Hospital04-15-2022 Miscellaneous Notes* Telephone Encounter - Agustina Guillen Ma - 10/02/2021 2:27 PM EDT Patient was notified and aware to call and make appointment Agustina Guillen Ma * Telephone Encounter - Mitul Abbott MD - 10/02/2021 2:05 PM EDT Let patient know mammograms showed asymmetries on both sides and will need additional imaging. Orders placed. * Telephone Encounter - Bharti Coello Ma - 10/02/2021 9:38 AM EDT Please review mammogram * Telephone Encounter - Fadumo Marquez Pss - 10/02/2021 9:28 AM EDT Patient is calling in regards to screening mammography that as completed. She has seen her results on my chart and calling to ask about them as she is being called back for additional views. Please return call to patient.. documented in this encounterOhiohealth Pickerington [facility] Hospital04-14-2022 Miscellaneous Notes* Letter - Mammography Coordinator - 10/01/2021 2:49 PM EDT October 01, 2021 PID: [id number] Mariluz Garcia [address] [address] Dear Ms. Garcia, Your recent breast imaging exam on 10/01/2021 showed a possible finding that requires additional imaging studies for a complete evaluation. Most such findings are probably benign (not cancer). If you have a healthcare provider who ordered/prescribed your screening mammogram: Please call [phone] or [phone] to schedule an appointment for your additional imaging (if youhave not already done so). If you DO [...] reports are kept on file at [facility] as part of your permanent medical record, and are available for your continuing care. Thank you for allowing us to help in meeting your health care needs. Sincerely, Dr. Loredo Interpreting Radiologist [facility] (Additional imaging) documented in this encounterOhiohealth Pickerington Methodist Hospital04-14-2022 History of Present illness Narrative* RT Nancy(R) - 10/01/2021 12:50 PM EDT Radiology Service Progress Note PATIENT NAME: Mariluz Garcia DATE OF SERVICE: October 01, 2021 TIME: 12:44 PM PATIENT IDENTITY VERIFICATION COMPLETED USING TWO (2) IDENTIFIERS: Name and Date of confirmedby patient verbally. FALL SCREENING: Has the patient [...] 01, 2021 12:44 PM documented in this encounterOhiohealth Pickerington [facility] Hospital04-04-2022 Miscellaneous Notes* Telephone Encounter - Jaimee Palomares PA-C - 09/21/2021 5:44 PM EDT Please advise insurance covers symbicort, similar to Breo The following approved medication requests have been transmitted electronically. Signed Prescriptions Disp Refills budesonide-formoterol (SYMBICORT) 160-4.5 mcg/actuation inhaler 1 Each 5 Sig: Inhale 2 Puffs as instructed twice daily. Authorizing Provider: Jaimee PALOMARES PA-C * Telephone Encounter - Fadumo Romero RN - 09/21/2021 10:35 AM EDT [facility] calling to state patient's Breo Ellipta is needing a pre-auth. Pharmacy states either symbicort or Dulera is covered by patient's insurance if provider would like to switch. Please advise [facility] at [phone]. Thank you. documented in this encounterOhiohealth Pickerington [facility] Hospital03-25-2022 Miscellaneous Notes* Telephone Encounter - Stephany Bowser Pss - 09/11/2021 1:30 PM EDT Patient has been identified by name and date of : Yes Pending Prescriptions Disp Refills CHOLECALCIFEROL (VITAMIN D3) 25 MCG (1,000 UNIT) CAPSULE 90 capsule 1 Sig: Take 1 capsule by mouth once daily. NATALIO: No [facility]-07/23/21 Labs-01/16/21 NOV-none RX INSTRUCTIONS: Pharmacy initiated this request. No need to notify patient. Stephany Bowser Pss documented in this encounterOhiohealth Pickerington Methodist Hospital01-28-2022 Miscellaneous Notes* Telephone Encounter - DEMETRIO Trammell - 07/17/2021 11:34 AM EST Sw spoke with patient in regarding patient needs. Patient reports that she can use a homebirth midwife. Patient reports that she has back pain and is unable to stand for long periods of time. Needs assistance with cooking, cleaning, grooming. Sw briefly discussed [place] [facility]. Patient notes that she had homebirth midwife in the past. The end and services ended 2 years ago and patient notes that she is not sure as to why services stopped. Sw noted number for home care waiver to see about referring or if her case is still open checkon status. Patient notes that she is at an appt and requests that Sw mail her number. Sw will mail patient [facility] Waiver application with contact number. * Telephone Encounter - Renata Gonzalez RN - 07/16/2021 4:14 PM EST Called Pt and let her know that Stephany from [facility] I ask the Pt if we could get her scheduled for a hospital follow up, and Pt was agreeable. Pt is scheduled to see Faustino Palomares on 07/23/21 at 1120. I had asked her if she felt she would benefit with talking to SW to see if they could get her in touch with any services that she may need fo r help in the future. * Telephone Encounter - Renata Gonzalez RN - 07/16/2021 4:01 PM EST Stephany JAVIERgeotechnical laboratory technician Care Banner from [facility] called in and reports Pt had been in [facility] 04/30/22-05/02/22. Then she went to the [address] [place] [id number] from 05/03/22-07/02/21 for a substance use disorder [...] with provider was 01/17[facility]12 [facility] History of Past illness Narrative* Problem Noted Date Resolved Date Encounter for support and coordination of transi tion of care 05/02/2021 07/23/2021 Overview: Hospital discharge summary: Date of admission 05/01/2021 Date of discharge: Facility: [facility] 05/01/2021 presented to the emergency room [...] 05/02/2021 Overview: HOSPITAL/ER FOLLOW UP Which facility: [facility] Dates of visit: 05/10-05/13/2020 Preadmission [...] this encounter (statuses as of 09/11/2021) [facility] History of Past illness Narrative* Problem Noted Date Resolved Date Encounter for support and coordination of transi tion of care 05/02/2021 07/23/2021 Overview: Hospital discharge summary: Date of admission 05/01/2021 Date of discharge: Facility: [facility] 05/01/2021 presented to the emergency room [...] 05/02/2021 Overview: HOSPITAL/ER FOLLOW UP Which facility: [facility] Dates of visit: 05/10-05/13/2020 Preadmission [...] this encounter (statuses as of 09/21/2021) [facility] History of Past illness Narrative* Problem Noted Date Resolved Date Encounter for support and coordination of transi tion of care 05/02/2021 07/23/2021 Overview: Hospital discharge summary: Date of admission 05/01/2021 Date of discharge: Facility: [facility] 05/01/2021 presented to the emergency room [...] 05/02/2021 Overview: HOSPITAL/ER FOLLOW UP Which facility: [facility] Dates of visit: 05/10-05/13/2020 Preadmission [...] reflux disease Pulmonary embolus Consultants: Surgery: Dr. Gaey Gordon testing done: ----- -Labwork: See above [...] this encounter (statuses as of 09/22/2021) [facility] History of Past illness Narrative* Problem Noted Date Resolved Date Encounter for support and coordination of transi tion of care 05/02/2021 07/23/2021 Overview: Hospital discharge summary: Date of admission 05/01/2021 Date of discharge: Facility: [facility] 05/01/2021 presented to the emergency room [...] 05/02/2021 Overview: HOSPITAL/ER FOLLOW UP Which facility: [facility] Dates of visit: 05/10-05/13/2020 Preadmission [...] this encounter (statuses as of 10/02/2021) [facility] History of Past illness Narrative* Problem Noted Date Resolved Date Encounter for support and coordination of transi tion of care 05/02/2021 07/23/2021 Overview: Hospital discharge summary: Date of admission 05/01/2021 Date of discharge: Facility: [facility] 05/01/2021 presented to the emergency room [...] 05/02/2021 Overview: HOSPITAL/ER FOLLOW UP Which facility: [facility] Dates of visit: 05/10-05/13/2020 Preadmission [...] this encounter (statuses as of 10/02/2021) [facility] History of Past illness Narrative* Problem Noted Date Resolved Date Encounter for support and coordination of transi tion of care 05/02/2021 07/23/2021 Overview: Hospital discharge summary: Date of admission 05/01/2021 Date of discharge: Facility: [facility] 05/01/2021 presented to the emergency room [...] 05/02/2021 Overview: HOSPITAL/ER FOLLOW UP Which facility: [facility] Dates of visit: 05/10-05/13/2020 Preadmission [...] this encounter (statuses as of 10/03/2021) [facility] History of Past illness Narrative* Problem Noted Date Resolved Date Encounter for support and coordination of transi tion of care 05/02/2021 07/23/2021 Overview: Hospital discharge summary: Date of admission 05/01/2021 Date of discharge: Facility: [facility] 05/01/2021 presented to the emergency room [...] 05/02/2021 Overview: HOSPITAL/ER FOLLOW UP Which facility: [facility] Dates of visit: 05/10-05/13/2020 Preadmission [...] this encounter (statuses as of 10/05/2021) [facility] History of Past illness Narrative* Problem Noted Date Resolved Date Encounter for support and coordination of transi tion of care 05/02/2021 07/23/2021 Overview: Hospital discharge summary: Date of admission 05/01/2021 Date of discharge: Facility: [facility] 05/01/2021 presented to the emergency room [...] 05/02/2021 Overview: HOSPITAL/ER FOLLOW UP Which facility: [facility] Dates of visit: 05/10-05/13/2020 Preadmission [...] this encounter (statuses as of 10/08/2021) [facility] History of Past illness Narrative* Problem Noted Date Resolved Date Encounter for support and coordination of transi on of care 05/02/2021 07/23/2021 Overview: Hospital discharge summary: Date of admission 05/01/2021 Date of discharge: Facility: [facility] 05/01/2021 presented to the emergency room [...] 05/02/2021 Overview: HOSPITAL/ER FOLLOW UP Which facility: [facility] Dates of visit: 05/10-05/13/2020 Preadmission [...] this encounter (statuses as of 10/21/2021) [facility] History of Past illness Narrative* Problem Noted Date Resolved Date Encounter for support and coordination of transi tion of care 05/02/2021 07/23/2021 Overview: Hospital discharge summary: Date of admission 05/01/2021 Date of discharge: Facility: [facility] 05/01/2021 presented to the emergency room [...] 05/02/2021 Overview: HOSPITAL/ER FOLLOW UP Which facility: [facility] Dates of visit: 05/10-05/13/2020 Preadmission [...] this encounter (statuses as of 10/21/2021) [facility] History of Past illness Narrative* Problem Noted Date Resolved Date Encounter for support and coordination of transi tion of care 05/02/2021 07/23/2021 Overview: Hospital discharge summary: Date of admission 05/01/2021 Date of discharge: Facility: [facility] 05/01/2021 presented to the emergency room [...] 05/02/2021 Overview: HOSPITAL/ER FOLLOW UP Which facility: [facility] Dates of visit: 05/10-05/13/2020 Preadmission [...] this encounter (statuses as of 10/23/2021) [facility] History of Past illness Narrative* Problem Noted Date Resolved Date Encounter for support and coordination of transi tion of care 05/02/2021 07/23/2021 Overview: Hospital discharge summary: Date of admission 05/01/2021 Date of discharge: Facility: [facility] 05/01/2021 presented to the emergency room [...] 05/02/2021 Overview: HOSPITAL/ER FOLLOW UP Which facility: [facility] Dates of visit: 05/10-05/13/2020 Preadmission [...] this encounter (statuses as of 11/06/2021) [facility] History of Past illness Narrative* Problem Noted Date Resolved Date Encounter for support and coordination of transi tion of care 05/02/2021 07/23/2021 Overview: Hospital discharge summary: Date of admission 05/01/2021 Date of discharge: Facility: [facility] 05/01/2021 presented to the emergency room [...] 05/02/2021 Overview: HOSPITAL/ER FOLLOW UP Which facility: [facility] Dates of visit: 05/10-05/13/2020 Preadmission [...] this encounter (statuses as of 11/06/2021) [facility] History of Past illness Narrative* Problem Noted Date Resolved Date Encounter for support and coordination of transi tion of care 05/02/2021 07/23/2021 Overview: Hospital discharge summary: Date of admission 05/01/2021 Date of discharge: Facility: [facility] 05/01/2021 presented to the emergency room [...] 05/02/2021 Overview: HOSPITAL/ER FOLLOW UP Which facility: [facility] Dates of visit: 05/10-05/13/2020 Preadmission [...] this encounter (statuses as of 11/11/2021) [facility] of Past illness Narrative* Problem Noted Date Resolved Date Encounter for support and coordination of transi tion of care 05/02/2021 07/23/2021 Overview: Hospital discharge summary: Date of admission 05/01/2021 Date of discharge: Facility: [facility] 05/01/2021 presented to the emergency room [...] 05/02/2021 Overview: HOSPITAL/ER FOLLOW UP Which facility: [facility] Dates of visit: 05/10-05/13/2020 Preadmission [...] of this encounter (statuses as of 11/13/2021) [place] [address]-13-2021 History of Past illness Narrative* Problem Noted Date Resolved Date Encounter for support and coordination of transi tion of care 05/02/2021 07/23/2021 Overview: Hospital discharge summary: Date of admission 05/01/2021 Date of discharge: Facility: [facility] 05/01/2021 presented to the emergency room [...] 05/02/2021 Overview: HOSPITAL/ER FOLLOW UP Which facility: [facility] Dates of visit: 05/10-05/13/2020 Preadmission [...] this encounter (statuses as of 11/23/2021) [facility] History of Past illness Narrative* Problem Noted Date Resolved Date Encounter for support and coordination of transi tion of care 05/02/2021 07/23/2021 Overview: Hospital discharge summary: Date of admission 05/01/2021 Date of discharge: Facility: [facility] 05/01/2021 presented to the emergency room [...] 05/02/2021 Overview: HOSPITAL/ER FOLLOW UP Which facility: [facility] Dates of visit: 05/10-05/13/2020 Preadmission [...] this encounter (statuses as of 11/23/2021) [facility] History of Past illness Narrative* Problem Noted Date Resolved Date Encounter for support and coordination of transi tion of care 05/02/2021 07/23/2021 Overview: Hospital discharge summary: Date of admission 05/01/2021 Date of discharge: Facility: [facility] 05/01/2021 presented to the emergency room [...] 05/02/2021 Overview: HOSPITAL/ER FOLLOW UP Which facility: [facility] Dates of visit: 05/10-05/13/2020 Preadmission [...] this encounter (statuses as of 11/26/2021) [facility] History of Past illness Narrative* Problem Noted Date Resolved Date Encounter for support and coordination of transi tion of care 05/02/2021 07/23/2021 Overview: Hospital discharge summary: Date of admission 05/01/2021 Date of discharge: Facility: [facility] 05/01/2021 presented to the emergency room [...] 05/02/2021 Overview: HOSPITAL/ER FOLLOW UP Which facility: [facility] Dates of visit: 05/10-05/13/2020 Preadmission [...] this encounter (statuses as of 11/28/2021) [facility] History of Past illness Narrative* Problem Noted Date Resolved Date Encounter for support and coordination of transi tion of care 05/02/2021 07/23/2021 Overview: Hospital discharge summary: Date of admission 05/01/2021 Date of discharge: Facility: [facility] 05/01/2021 presented to the emergency room [...] 05/02/2021 Overview: HOSPITAL/ER FOLLOW UP Which facility: [facility] Dates of visit: 05/10-05/13/2020 Preadmission [...] this encounter (statuses as of 12/07/2021) [facility] History of Past illness Narrative* Problem Noted Date Resolved Date Encounter for support and coordination of transi tion of care 05/02/2021 07/23/2021 Overview: Hospital discharge summary: Date of admission 05/01/2021 Date of discharge: Facility: [facility] 05/01/2021 presented to the emergency room [...] 05/02/2021 Overview: HOSPITAL/ER FOLLOW UP Which facility: [facility] Dates of visit: 05/10-05/13/2020 Preadmission [...] this encounter (statuses as of 12/09/2021) [facility] History of Past illness Narrative* Problem Noted Date Resolved Date Encounter for support and coordination of transi tion of care 05/02/2021 07/23/2021 Overview: Hospital discharge summary: Date of admission 05/01/2021 Date of discharge: Facility: [facility] 05/01/2021 presented to the emergency room [...] 05/02/2021 Overview: HOSPITAL/ER FOLLOW UP Which facility: [facility] Dates of visit: 05/10-05/13/2020 Preadmission [...] this encounter (statuses as of 12/09/2021) [facility] History of Past illness Narrative* Problem Noted Date Resolved Date Encounter for support and coordination of transi tion of care 05/02/2021 07/23/2021 Overview: Hospital discharge summary: Date of admission 05/01/2021 Date of discharge: Facility: [facility] 05/01/2021 presented to the emergency room [...] 05/02/2021 Overview: HOSPITAL/ER FOLLOW UP Which facility: [facility] Dates of visit: 05/10-05/13/2020 Preadmission [...] this encounter (statuses as of 12/10/2021) [facility] History of Past illness Narrative* Problem Noted Date Resolved Date Encounter for support and coordination of transi tion of care 05/02/2021 07/23/2021 Overview: Hospital discharge summary: Date of admission 05/01/2021 Date of discharge: Facility: [facility] 05/01/2021 presented to the emergency room [...] 05/02/2021 Overview: HOSPITAL/ER FOLLOW UP Which facility: [facility] Dates of visit: 05/10-05/13/2020 Preadmission [...] this encounter (statuses as of 12/10/2021) [facility] History of Past illness Narrative* Problem Noted Date Resolved Date Encounter for support and coordination of transi tion of care 05/02/2021 07/23/2021 Overview: Hospital discharge summary: Date of admission 05/01/2021 Date of discharge: Facility: [facility] 05/01/2021 presented to the emergency room [...] 05/02/2021 Overview: HOSPITAL/ER FOLLOW UP Which facility: [facility] Dates of visit: 05/10-05/13/2020 Preadmission [...] this encounter (statuses as of 12/10/2021) [facility] History of Past illness Narrative* Problem Noted Date Resolved Date Encounter for support and coordination of transi tion of care 05/02/2021 07/23/2021 Overview: Hospital discharge summary: Date of admission 05/01/2021 Date of discharge: Facility: [facility] 05/01/2021 presented to the emergency room [...] 05/02/2021 Overview: HOSPITAL/ER FOLLOW UP Which facility: [facility] Dates of visit: 05/10-05/13/2020 Preadmission [...] this encounter (statuses as of 12/15/2021) [facility] History of Past illness Narrative* Problem Noted Date Resolved Date Encounter for support and coordination of transi tion of care 05/02/2021 07/23/2021 Overview: Hospital discharge summary: Date of admission 05/01/2021 Date of discharge: Facility: [facility] 05/01/2021 presented to the emergency room [...] 05/02/2021 Overview: HOSPITAL/ER FOLLOW UP Which facility: [facility] Dates of visit: 05/10-05/13/2020 Preadmission [...] this encounter (statuses as of 01/04/2022) [facility] History of Past illness Narrative* Problem Noted Date Resolved Date Encounter for support and coordination of transi on of care 05/02/2021 07/23/2021 Overview: Hospital discharge summary: Date of admission 05/01/2021 Date of discharge: Facility: [facility] 05/01/2021 presented to the emergency room [...] 05/02/2021 Overview: HOSPITAL/ER FOLLOW UP Which facility: [facility] Dates of visit: 05/10-05/13/2020 Preadmission [...] this encounter (statuses as of 01/04/2022) [facility] History of Past illness Narrative* Problem Noted Date Resolved Date Encounter for support and coordination of transi tion of care 05/02/2021 07/23/2021 Overview: Hospital discharge summary: Date of admission 05/01/2021 Date of discharge: Facility: [facility] 05/01/2021 presented to the emergency room [...] 05/02/2021 Overview: HOSPITAL/ER FOLLOW UP Which facility: [facility] Dates of visit: 05/10-05/13/2020 Preadmission [...] this encounter (statuses as of 01/04/2022) [facility] History of Past illness Narrative* Problem Noted Date Resolved Date Encounter for support and coordination of transi tion of care 05/02/2021 07/23/2021 Overview: Hospital discharge summary: Date of admission 05/01/2021 Date of discharge: Facility: [facility] 05/01/2021 presented to the emergency room [...] 05/02/2021 Overview: HOSPITAL/ER FOLLOW UP Which facility: [facility] Dates of visit: 05/10-05/13/2020 Preadmission [...] this encounter (statuses as of 01/14/2022) [facility] History of Past illness Narrative* Problem Noted Date Resolved Date Encounter for support and coordination of transi tion of care 05/02/2021 07/23/2021 Overview: Hospital discharge summary: Date of admission 05/01/2021 Date of discharge: Facility: [facility] 05/01/2021 presented to the emergency room [...] 05/02/2021 Overview: HOSPITAL/ER FOLLOW UP Which facility: [facility] Dates of visit: 05/10-05/13/2020 Preadmission [...] this encounter (statuses as of 01/18/2022) [facility] History of Past illness Narrative* Problem Noted Date Resolved Date Encounter for support and coordination of transi tion of care 05/02/2021 07/23/2021 Overview: Hospital discharge summary: Date of admission 05/01/2021 Date of discharge: Facility: [facility] 05/01/2021 presented to the emergency room [...] 05/02/2021 Overview: HOSPITAL/ER FOLLOW UP Which facility: [facility] Dates of visit: 05/10-05/13/2020 Preadmission [...] this encounter (statuses as of 01/27/2022) [facility] History of Past illness Narrative* Problem Noted Date Resolved Date Encounter for support and coordination of transi tion of care 05/02/2021 07/23/2021 Overview: Hospital discharge summary: Date of admission 05/01/2021 Date of discharge: Facility: [facility] 05/01/2021 presented to the emergency room [...] 05/02/2021 Overview: HOSPITAL/ER FOLLOW UP Which facility: [facility] Dates of visit: 05/10-05/13/2020 Preadmission [...] this encounter (statuses as of 01/29/2022) [facility] History of Past illness Narrative* Problem Noted Date Resolved Date Encounter for support and coordination of transi on of care 05/02/2021 07/23/2021 Overview: Hospital discharge summary: Date of admission 05/01/2021 Date of discharge: Facility: [facility] 05/01/2021 presented to the emergency room [...] 05/02/2021 Overview: HOSPITAL/ER FOLLOW UP Which facility: [facility] Dates of visit: 05/10-05/13/2020 Preadmission [...] this encounter (statuses as of 01/29/2022) [facility] History of Past illness Narrative* Problem Noted Date Resolved Date Encounter for support and coordination of transi tion of care 05/02/2021 07/23/2021 Overview: Hospital discharge summary: Date of admission 05/01/2021 Date of discharge: Facility: [facility] 05/01/2021 presented to the emergency room [...] 05/02/2021 Overview: HOSPITAL/ER FOLLOW UP Which facility: [facility] Dates of visit: 05/10-05/13/2020 Preadmission [...] this encounter (statuses as of 02/05/2022) [facility] History of Past illness Narrative* Problem Noted Date Resolved Date Encounter for support and coordination of transi tion of care 05/02/2021 07/23/2021 Overview: Hospital discharge summary: Date of admission 05/01/2021 Date of discharge: Facility: [facility] 05/01/2021 presented to the emergency room [...] 05/02/2021 Overview: HOSPITAL/ER FOLLOW UP Which facility: [facility] Dates of visit: 05/10-05/13/2020 Preadmission [...] this encounter (statuses as of 02/11/2022) [facility] History of Past illness Narrative* Problem Noted Date Resolved Date Encounter for support and coordination of transi tion of care 05/02/2021 07/23/2021 Overview: Hospital discharge summary: Date of admission 05/01/2021 Date of discharge: Facility: [facility] 05/01/2021 presented to the emergency room [...] 05/02/2021 Overview: HOSPITAL/ER FOLLOW UP Which facility: [facility] Dates of visit: 05/10-05/13/2020 Preadmission [...] this encounter (statuses as of 02/17/2022) [facility] History of Past illness Narrative* Problem Noted Date Resolved Date Encounter for support and coordination of transi tion of care 05/02/2021 07/23/2021 Overview: Hospital discharge summary: Date of admission 05/01/2021 Date of discharge: Facility: [facility] 05/01/2021 presented to the emergency room [...] 05/02/2021 Overview: HOSPITAL/ER FOLLOW UP Which facility: [facility] Dates of visit: 05/10-05/13/2020 Preadmission [...] this encounter (statuses as of 02/23/2022) [facility] History of Past illness Narrative* Problem Noted Date Resolved Date Encounter for support and coordination of transi tion of care 05/02/2021 07/23/2021 Overview: Hospital discharge summary: Date of admission 05/01/2021 Date of discharge: Facility: [facility] 05/01/2021 presented to the emergency room [...] 05/02/2021 Overview: HOSPITAL/ER FOLLOW UP Which facility: [facility] Dates of visit: 05/10-05/13/2020 Preadmission [...] this encounter (statuses as of 02/24/2022) [facility] History of Past illness Narrative* Problem Noted Date Resolved Date Encounter for support and coordination of transi tion of care 05/02/2021 07/23/2021 Overview: Hospital discharge summary: Date of admission 05/01/2021 Date of discharge: Facility: [facility] 05/01/2021 presented to the emergency room [...] 05/02/2021 Overview: HOSPITAL/ER FOLLOW UP Which facility: [facility] Dates of visit: 05/10-05/13/2020 Preadmission [...] this encounter (statuses as of 02/25/2022) [facility] History of Past illness Narrative* Problem Noted Date Resolved Date Encounter for support and coordination of transi tion of care 05/02/2021 07/23/2021 Overview: Hospital discharge summary: Date of admission 05/01/2021 Date of discharge: Facility: [facility] 05/01/2021 presented to the emergency room [...] 05/02/2021 Overview: HOSPITAL/ER FOLLOW UP Which facility: [facility] Dates of visit: 05/10-05/13/2020 Preadmission [...] this encounter (statuses as of 02/26/2022) [facility] History of Past illness Narrative* Problem Noted Date Resolved Date Encounter for support and coordination of transi tion of care 05/02/2021 07/23/2021 Overview: Hospital discharge summary: Date of admission 05/01/2021 Date of discharge: Facility: [facility] 05/01/2021 presented to the emergency room [...] 05/02/2021 Overview: HOSPITAL/ER FOLLOW UP Which facility: [facility] Dates of visit: 05/10-05/13/2020 Preadmission [...] of this encounter (statuses as of 02/27/2022) [place] [id number] History of Past illness Narrative* Problem Noted Date Resolved Date Encounter for support and coordination of transi tion of care 05/02/2021 07/23/2021 Overview: Hospital discharge summary: Date of admission 05/01/2021 Date of discharge: Facility: [facility] 05/01/2021 presented to the emergency room [...] 05/02/2021 Overview: HOSPITAL/ER FOLLOW UP Which facility: [facility] Dates of visit: 05/10-05/13/2020 Preadmission [...] this encounter (statuses as of 03/02/2022) [facility]11-13-2021 History of Past illness Narrative* Problem Noted Date Resolved Date Encounter for support and coordination of transi tion of care 05/02/2021 07/23/2021 Overview: Hospital discharge summary: Date of admission 05/01/2021 Date of discharge: Facility: [facility] 05/01/2021 presented to the emergency room [...] 05/02/2021 Overview: HOSPITAL/ER FOLLOW UP Which facility: [facility] Dates of visit: 05/10-05/13/2020 Preadmission [...] this encounter (statuses as of 03/11/2022) [facility]-13-2021 History of Past illness Narrative* Problem Noted Date Resolved Date Encounter for support and coordination of transi tion of care 05/02/2021 07/23/2021 Overview: Hospital discharge summary: Date of admission 05/01/2021 Date of discharge: Facility: [facility] 05/01/2021 presented to the emergency room [...] 05/02/2021 Overview: HOSPITAL/ER FOLLOW UP Which facility: [facility] Dates of visit: 05/10-05/13/2020 Preadmission [...] this encounter (statuses as of 03/12/2022) [facility]11-13-2021 History of Past illness Narrative* Problem Noted Date Resolved Date Encounter for support and coordination of transi tion of care 05/02/2021 07/23/2021 Overview: Hospital discharge summary: Date of admission 05/01/2021 Date of discharge: Facility: [facility] 05/01/2021 presented to the emergency room [...] 05/02/2021 Overview: HOSPITAL/ER FOLLOW UP Which facility: [facility] Dates of visit: 05/10-05/13/2020 Preadmission [...] this encounter (statuses as of 03/16/2022) [facility]-13-2021 History of Past illness Narrative* Problem Noted Date Resolved Date Encounter for support and coordination of transi tion of care 05/02/2021 07/23/2021 Overview: Hospital discharge summary: Date of admission 05/01/2021 Date of discharge: Facility: [facility] 05/01/2021 presented to the emergency room [...] 05/02/2021 Overview: HOSPITAL/ER FOLLOW UP Which facility: [facility] Dates of visit: 05/10-05/13/2020 Preadmission [...] this encounter (statuses as of 03/17/2022) [facility]-13-2021 History of Past illness Narrative* Problem Noted Date Resolved Date Encounter for support and coordination of transi tion of care 05/02/2021 07/23/2021 Overview: Hospital discharge summary: Date of admission 05/01/2021 Date of discharge: Facility: [facility] 05/01/2021 presented to the emergency room [...] 05/02/2021 Overview: HOSPITAL/ER FOLLOW UP Which facility: [facility] Dates of visit: 05/10-05/13/2020 Preadmission [...] this encounter (statuses as of 03/25/2022) [facility]-13-2021 History of Past illness Narrative* Problem Noted Date Resolved Date Encounter for support and coordination of transi tion of care 05/02/2021 07/23/2021 Overview: Hospital discharge summary: Date of admission 05/01/2021 Date of discharge: Facility: [facility] 05/01/2021 presented to the emergency room [...] 05/02/2021 Overview: HOSPITAL/ER FOLLOW UP Which facility: [facility] Dates of visit: 05/10-05/13/2020 Preadmission [...] this encounter (statuses as of 03/26/2022) [facility]-13-2021 History of Past illness Narrative* Problem Noted Date Resolved Date Encounter for support and coordination of transi tion of care 05/02/2021 07/23/2021 Overview: Hospital discharge summary: Date of admission 05/01/2021 Date of discharge: Facility: [facility] 05/01/2021 presented to the emergency room [...] 05/02/2021 Overview: HOSPITAL/ER FOLLOW UP Which facility: [facility] Dates of visit: 05/10-05/13/2020 Preadmission [...] this encounter (statuses as of 04/01/2022) [facility]2021 History of Past illness Narrative* Problem Noted Date Resolved Date Encounter for support and coordination of transi tion of care 05/02/2021 07/23/2021 Overview: Hospital discharge summary: Date of admission 05/01/2021 Date of discharge: Facility: [facility] 05/01/2021 presented to the emergency room [...] 05/02/2021 Overview: HOSPITAL/ER FOLLOW UP Which facility: [facility] Dates of visit: 05/10-05/13/2020 Preadmission [...] this encounter (statuses as of 04/12/2022) [facility]2021 History of Past illness Narrative* Problem Noted Date Resolved Date Encounter for support and coordination of transi tion of care 05/02/2021 07/23/2021 Overview: Hospital discharge summary: Date of admission 05/01/2021 Date of discharge: Facility: [facility] 05/01/2021 presented to the emergency room [...] 05/02/2021 Overview: HOSPITAL/ER FOLLOW UP Which facility: [facility] Dates of visit: 05/10-05/13/2020 Preadmission [...] this encounter (statuses as of 04/19/2022) [facility]2021 History of Past illness Narrative* Problem Noted Date Resolved Date Encounter for support and coordination of transi tion of care 05/02/2021 07/23/2021 Overview: Hospital discharge summary: Date of admission 05/01/2021 Date of discharge: Facility: [facility] 05/01/2021 presented to the emergency room [...] 05/02/2021 Overview: HOSPITAL/ER FOLLOW UP Which facility: [facility] Dates of visit: 05/10-05/13/2020 Preadmission [...] this encounter (statuses as of 04/23/2022) [facility]-2021 History of Past illness Narrative* Problem Noted Date Resolved Date Encounter for support and coordination of transi tion of care 05/02/2021 07/23/2021 Overview: Hospital discharge summary: Date of admission 05/01/2021 Date of discharge: Facility: [facility] 05/01/2021 presented to the emergency room [...] 05/02/2021 Overview: HOSPITAL/ER FOLLOW UP Which facility: [facility] Dates of visit: 05/10-05/13/2020 Preadmission [...] this encounter (statuses as of 05/07/2022) [facility]-13-2021 History of Past illness Narrative* Problem Noted Date Resolved Date Encounter for support and coordination of transi tion of care 05/02/2021 07/23/2021 Overview: Hospital discharge summary: Date of admission 05/01/2021 Date of discharge: Facility: [facility] 05/01/2021 presented to the emergency room [...] 05/02/2021 Overview: HOSPITAL/ER FOLLOW UP Which facility: [facility] Dates of visit: 05/10-05/13/2020 Preadmission [...] this encounter (statuses as of 05/07/2022) [facility]-13-2021 History of Past illness Narrative* Problem Noted Date Resolved Date Encounter for support and coordination of transi tion of care 05/02/2021 07/23/2021 Overview: Hospital discharge summary: Date of admission 05/01/2021 Date of discharge: Facility: [facility] 05/01/2021 presented to the emergency room [...] 05/02/2021 Overview: HOSPITAL/ER FOLLOW UP Which facility: [facility] Dates of visit: 05/10-05/13/2020 Preadmission [...] this encounter (statuses as of 05/11/2022) [facility]2021 History of Past illness Narrative* Problem Noted Date Resolved Date Encounter for support and coordination of transi tion of care 05/02/2021 07/23/2021 Overview: Hospital discharge summary: Date of admission 05/01/2021 Date of discharge: Facility: [facility] 05/01/2021 presented to the emergency room [...] 05/02/2021 Overview: HOSPITAL/ER FOLLOW UP Which facility: [facility] Dates of visit: 05/10-05/13/2020 Preadmission [...] this encounter (statuses as of 05/14/2022) [facility]-2021 History of Past illness Narrative* Problem Noted Date Resolved Date Encounter for support and coordination of transi tion of care 05/02/2021 07/23/2021 Overview: Hospital discharge summary: Date of admission 05/01/2021 Date of discharge: Facility: [facility] 05/01/2021 presented to the emergency room [...] 05/02/2021 Overview: HOSPITAL/ER FOLLOW UP Which facility: [facility] Dates of visit: 05/10-05/13/2020 Preadmission [...] this encounter (statuses as of 05/20/2022) [facility]2021 History of Past illness Narrative* Problem Noted Date Resolved Date Encounter for support and coordination of transi tion of care 05/02/2021 07/23/2021 Overview: Hospital discharge summary: Date of admission 05/01/2021 Date of discharge: Facility: [facility] 05/01/2021 presented to the emergency room [...] 05/02/2021 Overview: HOSPITAL/ER FOLLOW UP Which facility: [facility] Dates of visit: 05/10-05/13/2020 Preadmission [...] this encounter (statuses as of 05/21/2022) [facility]2021 History of Past illness Narrative* Problem Noted Date Resolved Date Encounter for support and coordination of transi tion of care 05/02/2021 07/23/2021 Overview: Hospital discharge summary: Date of admission 05/01/2021 Date of discharge: Facility: [facility] 05/01/2021 presented to the emergency room [...] 05/02/2021 Overview: HOSPITAL/ER FOLLOW UP Which facility: [facility] Dates of visit: 05/10-05/13/2020 Preadmission [...] this encounter (statuses as of 05/25/2022) [facility]2021 History of Past illness Narrative* Problem Noted Date Resolved Date Encounter for support and coordination of transi tion of care 05/02/2021 07/23/2021 Overview: Hospital discharge summary: Date of admission 05/01/2021 Date of discharge: Facility: [facility] 05/01/2021 presented to the emergency room [...] 05/02/2021 Overview: HOSPITAL/ER FOLLOW UP Which facility: [facility] Dates of visit: 05/10-05/13/2020 Preadmission [...] this encounter (statuses as of 05/27/2022) [facility]-2021 History of Past illness Narrative* Problem Noted Date Resolved Date Encounter for support and coordination of transi tion of care 05/02/2021 07/23/2021 Overview: Hospital discharge summary: Date of admission 05/01/2021 Date of discharge: Facility: [facility] 05/01/2021 presented to the emergency room [...] 05/02/2021 Overview: HOSPITAL/ER FOLLOW UP Which facility: [facility] Dates of visit: 05/10-05/13/2020 Preadmission [...] this encounter (statuses as of 05/31/2022) [facility]-2021 History of Past illness Narrative* Problem Noted Date Resolved Date Encounter for support and coordination of transi tion of care 05/02/2021 07/23/2021 Overview: Hospital discharge summary: Date of admission 05/01/2021 Date of discharge: Facility: [facility] 05/01/2021 presented to the emergency room [...] 05/02/2021 Overview: HOSPITAL/ER FOLLOW UP Which facility: [facility] Dates of visit: 05/10-05/13/2020 Preadmission [...] this encounter (statuses as of 06/03/2022) [facility]2021 History of Past illness Narrative* Problem Noted Date Resolved Date Encounter for support and coordination of transi tion of care 05/02/2021 07/23/2021 Overview: Hospital discharge summary: Date of admission 05/01/2021 Date of discharge: Facility: [facility] 05/01/2021 presented to the emergency room [...] 05/02/2021 Overview: HOSPITAL/ER FOLLOW UP Which facility: [facility] Dates of visit: 05/10-05/13/2020 Preadmission [...] this encounter (statuses as of 06/03/2022) [facility]21 History of Past illness Narrative* Problem Noted Date Resolved Date Encounter for support and coordination of transi tion of care 05/02/2021 07/23/2021 Overview: Hospital discharge summary: Date of admission 05/01/2021 Date of discharge: Facility: [facility] 05/01/2021 presented to the emergency room [...] 05/02/2021 Overview: HOSPITAL/ER FOLLOW UP Which facility: [facility] Dates of visit: 05/10-05/13/2020 Preadmission [...] this encounter (statuses as of 06/13/2022) [facility] History of Past illness Narrative* Problem Noted Date Resolved Date Encounter for support and coordination of transi tion of care 05/02/2021 07/23/2021 Overview: Hospital discharge summary: Date of admission 05/01/2021 Date of discharge: Facility: [facility] 05/01/2021 presented to the emergency room [...] 05/02/2021 Overview: HOSPITAL/ER FOLLOW UP Which facility: [facility] Dates of visit: 05/10-05/13/2020 Preadmission [...] this encounter (statuses as of 06/13/2022) [facility] History of Past illness Narrative* Problem Noted Date Resolved Date Encounter for support and coordination of transi tion of care 05/02/2021 07/23/2021 Overview: Hospital discharge summary: Date of admission 05/01/2021 Date of discharge: Facility: [facility] 05/01/2021 presented to the emergency room [...] 05/02/2021 Overview: HOSPITAL/ER FOLLOW UP Which facility: [facility] Dates of visit: 05/10-05/13/2020 Preadmission [...] this encounter (statuses as of 06/22/2022) [facility]21 History of Past illness Narrative* Problem Noted Date Resolved Date Encounter for support and coordination of transi tion of care 05/02/2021 07/23/2021 Overview: Hospital discharge summary: Date of admission 05/01/2021 Date of discharge: Facility: [facility] 05/01/2021 presented to the emergency room [...] 05/02/2021 Overview: HOSPITAL/ER FOLLOW UP Which facility: [facility] Dates of visit: 05/10-05/13/2020 Preadmission [...] this encounter (statuses as of 06/23/2022) [facility]21 History of Past illness Narrative* Problem Noted Date Resolved Date Encounter for support and coordination of transi tion of care 05/02/2021 07/23/2021 Overview: Hospital discharge summary: Date of admission 05/01/2021 Date of discharge: Facility: [facility] 05/01/2021 presented to the emergency room [...] 05/02/2021 Overview: HOSPITAL/ER FOLLOW UP Which facility: [facility] Dates of visit: 05/10-05/13/2020 Preadmission [...] this encounter (statuses as of 06/23/2022) [facility]21 History of Past illness Narrative* Problem Noted Date Resolved Date Encounter for support and coordination of transi tion of care 05/02/2021 07/23/2021 Overview: Hospital discharge summary: Date of admission 05/01/2021 Date of discharge: Facility: [facility] 05/01/2021 presented to the emergency room [...] 05/02/2021 Overview: HOSPITAL/ER FOLLOW UP Which facility: [facility] Dates of visit: 05/10-05/13/2020 Preadmission [...] this encounter (statuses as of 06/23/2022) [facility] History of Past illness Narrative* Problem Noted Date Resolved Date Encounter for support and coordination of transi tion of care 05/02/2021 07/23/2021 Overview: Hospital discharge summary: Date of admission 05/01/2021 Date of discharge: Facility: [facility] 05/01/2021 presented to the emergency room [...] 05/02/2021 Overview: HOSPITAL/ER FOLLOW UP Which facility: [facility] Dates of visit: 05/10-05/13/2020 Preadmission [...] this encounter (statuses as of 06/25/2022) [facility] History of Past illness Narrative* Problem Noted Date Resolved Date Encounter for support and coordination of transi tion of care 05/02/2021 07/23/2021 Overview: Hospital discharge summary: Date of admission 05/01/2021 Date of discharge: Facility: [facility] 05/01/2021 presented to the emergency room [...] 05/02/2021 Overview: HOSPITAL/ER FOLLOW UP Which facility: [facility] Dates of visit: 05/10-05/13/2020 Preadmission [...] this encounter (statuses as of 06/25/2022) [facility] History of Past illness Narrative* Problem Noted Date Resolved Date Encounter for support and coordination of transi tion of care 05/02/2021 07/23/2021 Overview: Hospital discharge summary: Date of admission 05/01/2021 Date of discharge: Facility: [facility] 05/01/2021 presented to the emergency room [...] 05/02/2021 Overview: HOSPITAL/ER FOLLOW UP Which facility: [facility] Dates of visit: 05/10-05/13/2020 Preadmission [...] this encounter (statuses as of 06/28/2022) [facility] History of Past illness Narrative* Problem Noted Date Resolved Date Encounter for support and coordination of transi tion of care 05/02/2021 07/23/2021 Overview: Hospital discharge summary: Date of admission 05/01/2021 Date of discharge: Facility: [facility] 05/01/2021 presented to the emergency room [...] 05/02/2021 Overview: HOSPITAL/ER FOLLOW UP Which facility: [facility] Dates of visit: 05/10-05/13/2020 Preadmission [...] this encounter (statuses as of 07/14/2022) [facility] History of Past illness Narrative* Problem Noted Date Resolved Date Encounter for support and coordination of transi tion of care 05/02/2021 07/23/2021 Overview: Hospital discharge summary: Date of admission 05/01/2021 Date of discharge: Facility: [facility] 05/01/2021 presented to the emergency room [...] 05/02/2021 Overview: HOSPITAL/ER FOLLOW UP Which facility: [facility] Dates of visit: 05/10-05/13/2020 Preadmission [...] this encounter (statuses as of 07/16/2022) [facility] History of Past illness Narrative* Problem Noted Date Resolved Date Encounter for support and coordination of transi tion of care 05/02/2021 07/23/2021 Overview: Hospital discharge summary: Date of admission 05/01/2021 Date of discharge: Facility: [facility] 05/01/2021 presented to the emergency room [...] 05/02/2021 Overview: HOSPITAL/ER FOLLOW UP Which facility: [facility] Dates of visit: 05/10-05/13/2020 Preadmission [...] this encounter (statuses as of 07/22/2022) [facility] History of Past illness Narrative* Problem Noted Date Resolved Date Encounter for support and coordination of transi tion of care 05/02/2021 07/23/2021 Overview: Hospital discharge summary: Date of admission 05/01/2021 Date of discharge: Facility: [facility] 05/01/2021 presented to the emergency room [...] 05/02/2021 Overview: HOSPITAL/ER FOLLOW UP Which facility: [facility] Dates of visit: 05/10-05/13/2020 Preadmission [...] this encounter (statuses as of 08/06/2022) [facility] History of Past illness Narrative* Problem Noted Date Resolved Date Encounter for support and coordination of transi tion of care 05/02/2021 07/23/2021 Overview: Hospital discharge summary: Date of admission 05/01/2021 Date of discharge: Facility: [facility] 05/01/2021 presented to the emergency room [...] 05/02/2021 Overview: HOSPITAL/ER FOLLOW UP Which facility: [facility] Dates of visit: 05/10-05/13/2020 Preadmission [...] this encounter (statuses as of 08/13/2022) [facility] History of Past illness Narrative* Problem Noted Date Resolved Date Encounter for support and coordination of transi tion of care 05/02/2021 07/23/2021 Overview: Hospital discharge summary: Date of admission 05/01/2021 Date of discharge: Facility: [facility] 05/01/2021 presented to the emergency room [...] 05/02/2021 Overview: HOSPITAL/ER FOLLOW UP Which facility: [facility] Dates of visit: 05/10-05/13/2020 Preadmission [...] this encounter (statuses as of 08/16/2022) [facility] History of Past illness Narrative* Problem Noted Date Resolved Date Encounter for support and coordination of transi tion of care 05/02/2021 07/23/2021 Overview: Hospital discharge summary: Date of admission 05/01/2021 Date of discharge: Facility: [facility] 05/01/2021 presented to the emergency room [...] 05/02/2021 Overview: HOSPITAL/ER FOLLOW UP Which facility: [facility] Dates of visit: 05/10-05/13/2020 Preadmission [...] this encounter (statuses as of 08/17/2022) [facility] History of Past illness Narrative* Problem Noted Date Resolved Date Encounter for support and coordination of transi tion of care 05/02/2021 07/23/2021 Overview: Hospital discharge summary: Date of admission 05/01/2021 Date of discharge: Facility: [facility] 05/01/2021 presented to the emergency room [...] 05/02/2021 Overview: HOSPITAL/ER FOLLOW UP Which facility: [facility] Dates of visit: 05/10-05/13/2020 Preadmission [...] this encounter (statuses as of 08/18/2022) [facility] History of Past illness Narrative* Problem Noted Date Resolved Date Encounter for support and coordination of transi tion of care 05/02/2021 07/23/2021 Overview: Hospital discharge summary: Date of admission 05/01/2021 Date of discharge: Facility: [facility] 05/01/2021 presented to the emergency room [...] 05/02/2021 Overview: HOSPITAL/ER FOLLOW UP Which facility: [facility] Dates of visit: 05/10-05/13/2020 Preadmission [...] this encounter (statuses as of 08/26/2022) [facility] History of Past illness Narrative* Problem Noted Date Resolved Date Encounter for support and coordination of transi tion of care 05/02/2021 07/23/2021 Overview: Hospital discharge summary: Date of admission 05/01/2021 Date of discharge: Facility: [facility] 05/01/2021 presented to the emergency room [...] 05/02/2021 Overview: HOSPITAL/ER FOLLOW UP Which facility: [facility] Dates of visit: 05/10-05/13/2020 Preadmission [...] this encounter (statuses as of 08/27/2022) [facility] History of Past illness Narrative* Problem Noted Date Resolved Date Encounter for support and coordination of transi tion of care 05/02/2021 07/23/2021 Overview: Hospital discharge summary: Date of admission 05/01/2021 Date of discharge: Facility: [facility] 05/01/2021 presented to the emergency room [...] 05/02/2021 Overview: HOSPITAL/ER FOLLOW UP Which facility: [facility] Dates of visit: 05/10-05/13/2020 Preadmission [...] this encounter (statuses as of 09/01/2022) [facility] History of Past illness Narrative* Problem Noted Date Resolved Date Encounter for support and coordination of transi tion of care 05/02/2021 07/23/2021 Overview: Hospital discharge summary: Date of admission 05/01/2021 Date of discharge: Facility: [facility] 05/01/2021 presented to the emergency room [...] 05/02/2021 Overview: HOSPITAL/ER FOLLOW UP Which facility: [facility] Dates of visit: 05/10-05/13/2020 Preadmission [...] this encounter (statuses as of 09/16/2022) [facility]11-13-2021 History of Past illness Narrative* Problem Noted Date Resolved Date Encounter for support and coordination of transi tion of care 05/02/2021 07/23/2021 Overview: Hospital discharge summary: Date of admission 05/01/2021 Date of discharge: Facility: [facility] 05/01/2021 presented to the emergency room [...] 05/02/2021 Overview: HOSPITAL/ER FOLLOW UP Which facility: [facility] Dates of visit: 05/10-05/13/2020 Preadmission [...] this encounter (statuses as of 10/09/2022) [facility]11-13-2021 History of Past illness Narrative* Problem Noted Date Resolved Date Encounter for support and coordination of transi tion of care 05/02/2021 07/23/2021 Overview: Hospital discharge summary: Date of admission 05/01/2021 Date of discharge: Facility: [facility] 05/01/2021 presented to the emergency room [...] 05/02/2021 Overview: HOSPITAL/ER FOLLOW UP Which facility: [facility] Dates of visit: 05/10-05/13/2020 Preadmission [...] this encounter (statuses as of 10/14/2022) [facility]11-13-2021 History of Past illness Narrative* Problem Noted Date Resolved Date Encounter for support and coordination of transi tion of care 05/02/2021 07/23/2021 Overview: Hospital discharge summary: Date of admission 05/01/2021 Date of discharge: Facility: [facility] 05/01/2021 presented to the emergency room [...] 05/02/2021 Overview: HOSPITAL/ER FOLLOW UP Which facility: [facility] Dates of visit: 05/10-05/13/2020 Preadmission [...] this encounter (statuses as of 10/21/2022) [facility]11-13-2021 History of Past illness Narrative* Problem Noted Date Resolved Date Encounter for support and coordination of transi tion of care 05/02/2021 07/23/2021 Overview: Hospital discharge summary: Date of admission 05/01/2021 Date of discharge: Facility: [facility] 05/01/2021 presented to the emergency room [...] 05/02/2021 Overview: HOSPITAL/ER FOLLOW UP Which facility: [facility] Dates of visit: 05/10-05/13/2020 Preadmission [...] of gangrene, enlarged liver with fatty infiltration [facility] course: As above patient was admitted, IV fluid, pain management, taken to surgery. Patient had successful recovery and discharged in a stable condition. Instructions were to return to activity but no driving while taking narcotic medication Medication Reconciliation: Completed Patient was given oxycodone 5 mg every 12 hours #10 documented as of this encounter (statuses as of 10/27/2022) [facility]11-13-2021 History of Past illness Narrative* Problem Noted Date Resolved Date Encounter for support and coordination of transi tion of care 05/02/2021 07/23/2021 Overview: Hospital discharge summary: Date of admission 05/01/2021 Date of discharge: Facility: [facility] 05/01/2021 presented to the emergency room [...] 05/02/2021 Overview: HOSPITAL/ER FOLLOW UP Which facility: [facility] Dates of visit: 05/10-05/13/2020 Preadmission [...] this encounter (statuses as of 11/22/2022) [facility]11-13-2021 History of Past illness Narrative* Problem Noted Date Resolved Date Encounter for support and coordination of transi tion of care 05/02/2021 07/23/2021 Overview: Hospital discharge summary: Date of admission 05/01/2021 Date of discharge: Facility: [facility] 05/01/2021 presented to the emergency room [...] 05/02/2021 Overview: HOSPITAL/ER FOLLOW UP Which facility: [facility] Dates of visit: 05/10-05/13/2020 Preadmission [...] this encounter (statuses as of 11/23/2022) [facility]21 History of Past illness Narrative* Problem Noted Date Resolved Date Encounter for support and coordination of transi tion of care 05/02/2021 07/23/2021 Overview: Hospital discharge summary: Date of admission 05/01/2021 Date of discharge: Facility: [facility] 05/01/2021 presented to the emergency room [...] 05/02/2021 Overview: HOSPITAL/ER FOLLOW UP Which facility: [facility] Dates of visit: 05/10-05/13/2020 Preadmission [...] this encounter (statuses as of 12/10/2022) [facility]11-13-2021 History of Past illness Narrative* Problem Noted Date Resolved Date Encounter for support and coordination of transi tion of care 05/02/2021 07/23/2021 Overview: Hospital discharge summary: Date of admission 05/01/2021 Date of discharge: Facility: [facility] 05/01/2021 presented to the emergency room [...] 05/02/2021 Overview: HOSPITAL/ER FOLLOW UP Which facility: [facility] Dates of visit: 05/10-05/13/2020 Preadmission [...] this encounter (statuses as of 12/10/2022) [facility]11-13-2021 History of Past illness Narrative* Problem Noted Date Resolved Date Encounter for support and coordination of transi tion of care 05/02/2021 07/23/2021 Overview: Hospital discharge summary: Date of admission 05/01/2021 Date of discharge: Facility: [facility] 05/01/2021 presented to the emergency room [...] 05/02/2021 Overview: HOSPITAL/ER FOLLOW UP Which facility: [facility] Dates of visit: 05/10-05/13/2020 Preadmission [...] this encounter (statuses as of 12/10/2022) [facility]11-13-2021 History of Past illness Narrative* Problem Noted Date Resolved Date Encounter for support and coordination of transi tion of care 05/02/2021 07/23/2021 Overview: Hospital discharge summary: Date of admission 05/01/2021 Date of discharge: Facility: [facility] 05/01/2021 presented to the emergency room [...] 05/02/2021 Overview: HOSPITAL/ER FOLLOW UP Which facility: [facility] Dates of visit: 05/10-05/13/2020 Preadmission [...] this encounter (statuses as of 12/16/2022) [facility]21 History of Past illness Narrative* Problem Noted Date Resolved Date Encounter for support and coordination of transi tion of care 05/02/2021 07/23/2021 Overview: Hospital discharge summary: Date of admission 05/01/2021 Date of discharge: Facility: [facility] 05/01/2021 presented to the emergency room [...] 05/02/2021 Overview: HOSPITAL/ER FOLLOW UP Which facility: [facility] Dates of visit: 05/10-05/13/2020 Preadmission [...] this encounter (statuses as of 12/16/2022) [facility]11-13-2021 History of Past illness Narrative* Problem Noted Date Resolved Date Encounter for support and coordination of transi tion of care 05/02/2021 07/23/2021 Overview: Hospital discharge summary: Date of admission 05/01/2021 Date of discharge: Facility: [facility] 05/01/2021 presented to the emergency room [...] 05/02/2021 Overview: HOSPITAL/ER FOLLOW UP Which facility: [facility] Dates of visit: 05/10-05/13/2020 Preadmission [...] this encounter (statuses as of 12/23/2022) [facility]11-13-2021 History of Past illness Narrative* Problem Noted Date Resolved Date Encounter for support and coordination of transi on of care 05/02/2021 07/23/2021 Overview: Hospital discharge summary: Date of admission 05/01/2021 Date of discharge: Facility: [facility] 05/01/2021 presented to the emergency room [...] 05/02/2021 Overview: HOSPITAL/ER FOLLOW UP Which facility: [facility] Dates of visit: 05/10-05/13/2020 Preadmission [...] this encounter (statuses as of 12/24/2022) [facility]11-13-2021 History of Past illness Narrative* Problem Noted Date Diagnosed Date Resolved Date Encounter for support and co ordination of transition of care 05/02/2021 07/23/2021 Overview: Hospital discharge summary: Date of admission 05/01/2021 Date of discharge: Facility: [facility] 05/01/2021 presented to the emergency room [...] 05/02/2021 Overview: HOSPITAL/ER FOLLOW UP Which facility: [facility] Dates of visit: 05/10-05/13/2020 Preadmission [...] this encounter (statuses as of 01/05/2023) [facility]11-[facility]-2021 History of Past illness Narrative* Problem Noted Date Diagnosed Date Resolved Date Encounter for support and co ordination of transition of care 05/02/2021 07/23/2021 Overview: Hospital discharge summary: Date of admission 05/01/2021 Date of discharge: Facility: [facility] 05/01/2021 presented to the emergency room [...] 05/02/2021 Overview: HOSPITAL/ER FOLLOW UP Which facility: [facility] Dates of visit: 05/10-05/13/2020 Preadmission [...] this encounter (statuses as of 01/05/2023) [facility]21 History of Past illness Narrative* Problem Noted Date Diagnosed Date Resolved Date Encounter for support and co ordination of transition of care 05/02/2021 07/23/2021 Overview: Hospital discharge summary: Date of admission 05/01/2021 Date of discharge: Facility: [facility] 05/01/2021 presented to the emergency room [...] 05/02/2021 Overview: HOSPITAL/ER FOLLOW UP Which facility: [facility] Dates of visit: 05/10-05/13/2020 Preadmission [...] this encounter (statuses as of 01/07/2023) [facility]11-[facility]-2021 History of Past illness Narrative* Problem Noted Date Diagnosed Date Resolved Date Encounter for support and co ordination of transition of care 05/02/2021 07/23/2021 Overview: Hospital discharge summary: Date of admission 05/01/2021 Date of discharge: Facility: [facility] 05/01/2021 presented to the emergency room [...] 05/02/2021 Overview: HOSPITAL/ER FOLLOW UP Which facility: [facility] Dates of visit: 05/10-05/13/2020 Preadmission [...] this encounter (statuses as of 01/14/2023) [facility]21 History of Past illness Narrative* Problem Noted Date Diagnosed Date Resolved Date Encounter for support and co ordination of transition of care 05/02/2021 07/23/2021 Overview: Hospital discharge summary: Date of admission 05/01/2021 Date of discharge: Facility: [facility] 05/01/2021 presented to the emergency room [...] 05/02/2021 Overview: HOSPITAL/ER FOLLOW UP Which facility: [facility] Dates of visit: 05/10-05/13/2020 Preadmission [...] this encounter (statuses as of 01/29/2023) [facility]11-13-2021 History of Past illness Narrative* Problem Noted Date Diagnosed Date Resolved Date Encounter for support and co ordination of transition of care 05/02/2021 07/23/2021 Overview: Hospital discharge summary: Date of admission 05/01/2021 Date of discharge: Facility: [facility] 05/01/2021 presented to the emergency room [...] 05/02/2021 Overview: HOSPITAL/ER FOLLOW UP Which facility: [facility] Dates of visit: 05/10-05/13/2020 Preadmission [...] this encounter (statuses as of 01/31/2023) [facility]11-13-2021 History of Past illness Narrative* Problem Noted Date Diagnosed Date Resolved Date Encounter for support and co ordination of transition of care 05/02/2021 07/23/2021 Overview: Hospital discharge summary: Date of admission 05/01/2021 Date of discharge: Facility: [facility] 05/01/2021 presented to the emergency room [...] 05/02/2021 Overview: HOSPITAL/ER FOLLOW UP Which facility: [facility] Dates of visit: 05/10-05/13/2020 Preadmission [...] this encounter (statuses as of 02/01/2023) [facility] History of Past illness Narrative* Problem Noted Date Diagnosed Date Resolved Date Encounter for support and co ordination of transition of care 05/02/2021 07/23/2021 Overview: Hospital discharge summary: Date of admission 05/01/2021 Date of discharge: Facility: [facility] 05/01/2021 presented to the emergency room [...] 05/02/2021 Overview: HOSPITAL/ER FOLLOW UP Which facility: [facility] Dates of visit: 05/10-05/13/2020 Preadmission [...] this encounter (statuses as of 02/03/2023) [facility] History of Past illness Narrative* Problem Noted Date Diagnosed Date Resolved Date Encounter for support and co ordination of transition of care 05/02/2021 07/23/2021 Overview: Hospital discharge summary: Date of admission 05/01/2021 Date of discharge: Facility: [facility] 05/01/2021 presented to the emergency room [...] 05/02/2021 Overview: HOSPITAL/ER FOLLOW UP Which facility: [facility] Dates of visit: 05/10-05/13/2020 Preadmission [...] this encounter (statuses as of 02/08/2023) [facility] History of Past illness Narrative* Problem Noted Date Diagnosed Date Resolved Date Encounter for support and co ordination of transition of care 05/02/2021 07/23/2021 Overview: Hospital discharge summary: Date of admission 05/01/2021 Date of discharge: Facility: [facility] 05/01/2021 presented to the emergency room [...] 05/02/2021 Overview: HOSPITAL/ER FOLLOW UP Which facility: [facility] Dates of visit: 05/10-05/13/2020 Preadmission [...] this encounter (statuses as of 02/14/2023) [facility]11-13-2021 History of Past illness Narrative* Problem Noted Date Diagnosed Date Resolved Date Encounter for support and co ordination of transition of care 05/02/2021 07/23/2021 Overview: Hospital discharge summary: Date of admission 05/01/2021 Date of discharge: Facility: [facility] 05/01/2021 presented to the emergency room [...] 05/02/2021 Overview: HOSPITAL/ER FOLLOW UP Which facility: [facility] Dates of visit: 05/10-05/13/2020 Preadmission [...] this encounter (statuses as of 02/15/2023) [facility]-2021 History of Past illness Narrative* Problem Noted Date Diagnosed Date Resolved Date Encounter for support and co ordination of transition of care 05/02/2021 07/23/2021 Overview: Hospital discharge summary: Date of admission 05/01/2021 Date of discharge: Facility: [facility] 05/01/2021 presented to the emergency room [...] 05/02/2021 Overview: HOSPITAL/ER FOLLOW UP Which facility: [facility] Dates of visit: 05/10-05/13/2020 Preadmission [...] this encounter (statuses as of 02/16/2023) [facility]21 History of Past illness Narrative* Problem Noted Date Diagnosed Date Resolved Date Encounter for support and co ordination of transition of care 05/02/2021 07/23/2021 Overview: Hospital discharge summary: Date of admission 05/01/2021 Date of discharge: Facility: [facility] 05/01/2021 presented to the emergency room [...] 05/02/2021 Overview: HOSPITAL/ER FOLLOW UP Which facility: [facility] Dates of visit: 05/10-05/13/2020 Preadmission [...] this encounter (statuses as of 03/01/2023) [facility]21 History of Past illness Narrative* Problem Noted Date Diagnosed Date Resolved Date Encounter for support and co ordination of transition of care 05/02/2021 07/23/2021 Overview: Hospital discharge summary: Date of admission 05/01/2021 Date of discharge: Facility: [facility] 05/01/2021 presented to the emergency room [...] 05/02/2021 Overview: HOSPITAL/ER FOLLOW UP Which facility: [facility] Dates of visit: 05/10-05/13/2020 Preadmission [...] this encounter (statuses as of 03/09/2023) [facility]21 History of Past illness Narrative* Problem Noted Date Diagnosed Date Resolved Date Encounter for support and co ordination of transition of care 05/02/2021 07/23/2021 Overview: Hospital discharge summary: Date of admission 05/01/2021 Date of discharge: Facility: [facility] 05/01/2021 presented to the emergency room [...] 05/02/2021 Overview: HOSPITAL/ER FOLLOW UP Which facility: [facility] Dates of visit: 05/10-05/13/2020 Preadmission [...] this encounter (statuses as of 03/12/2023) [facility] History of Past illness Narrative* Problem Noted Date Diagnosed Date Resolved Date Encounter for support and co ordination of transition of care 05/02/2021 07/23/2021 Overview: Hospital discharge summary: Date of admission 05/01/2021 Date of discharge: Facility: [facility] 05/01/2021 presented to the emergency room [...] 05/02/2021 Overview: HOSPITAL/ER FOLLOW UP Which facility: [facility] Dates of visit: 05/10-05/13/2020 Preadmission [...] this encounter (statuses as of 04/25/2023) [facility] History of Past illness Narrative* Problem Noted Date Diagnosed Date Resolved Date Encounter for support and co ordination of transition of care 05/02/2021 07/23/2021 Overview: Hospital discharge summary: Date of admission 05/01/2021 Date of discharge: Facility: [facility] 05/01/2021 presented to the emergency room [...] 05/02/2021 Overview: HOSPITAL/ER FOLLOW UP Which facility: [facility] Dates of visit: 05/10-05/13/2020 Preadmission [...] this encounter (statuses as of 04/25/2023) [facility] History of Past illness Narrative* Problem Noted Date Diagnosed Date Resolved Date Encounter for support and co ordination of transition of care 05/02/2021 07/23/2021 Overview: Hospital discharge summary: Date of admission 05/01/2021 Date of discharge: Facility: [facility] 05/01/2021 presented to the emergency room [...] 05/02/2021 Overview: HOSPITAL/ER FOLLOW UP Which facility: [facility] Dates of visit: 05/10-05/13/2020 Preadmission [...] this encounter (statuses as of 04/25/2023) [facility] History of Past illness Narrative* Problem Noted Date Diagnosed Date Resolved Date Encounter for support and co ordination of transition of care 05/02/2021 07/23/2021 Overview: Hospital discharge summary: Date of admission 05/01/2021 Date of discharge: Facility: [facility] 05/01/2021 presented to the emergency room [...] 05/02/2021 Overview: HOSPITAL/ER FOLLOW UP Which facility: [facility] Dates of visit: 05/10-05/13/2020 Preadmission [...] this encounter (statuses as of 05/11/2023) [facility] History of Past illness Narrative* Problem Noted Date Diagnosed Date Resolved Date Encounter for support and co ordination of transition of care 05/02/2021 07/23/2021 Overview: Hospital discharge summary: Date of admission 05/01/2021 Date of discharge: Facility: [facility] 05/01/2021 presented to the emergency room [...] 05/02/2021 Overview: HOSPITAL/ER FOLLOW UP Which facility: [facility] Dates of visit: 05/10-05/13/2020 Preadmission [...] this encounter (statuses as of 05/20/2023) [facility] History of Past illness Narrative* Problem Noted Date Diagnosed Date Resolved Date Encounter for support and co ordination of transition of care 05/02/2021 07/23/2021 Overview: Hospital discharge summary: Date of admission 05/01/2021 Date of discharge: Facility: [facility] 05/01/2021 presented to the emergency room [...] 05/02/2021 Overview: HOSPITAL/ER FOLLOW UP Which facility: [facility] Dates of visit: 05/10-05/13/2020 Preadmission [...] of this encounter (statuses as of 05/25/2023) [facility]03-[facility]-2021 History of Past illness Narrative* Problem Noted Date Diagnosed Date Resolved Date Mild protein-calorie malnutrition 08/26/2020 11/12/2021 Encounter for support and co ordination of transition of care 05/15/2020 05/02/2021 Overview: HOSPITAL/ER FOLLOW UP Which facility: [facility] Dates of visit: 05/10-05/13/2020 Preadmission [...] as of this encounter (statuses as of 07/22/2023) [facility] History of Past illness Narrative* Problem Noted Date Diagnosed Date Resolved Date Mild protein-calorie malnutrition 08/26/2020 11/12/2021 Encounter for support and co ordination of transition of care 05/15/2020 05/02/2021 Overview: HOSPITAL/ER FOLLOW UP Which facility: [facility] Dates of visit: 05/10-05/13/2020 Preadmission [...] as of this encounter (statuses as of 07/27/2023) [facility] History of Past illness Narrative* Problem Noted Date Diagnosed Date Resolved Date Mild protein-calorie malnutrition 08/26/2020 11/12/2021 Encounter for support and co ordination of transition of care 05/15/2020 05/02/2021 Overview: HOSPITAL/ER FOLLOW UP Which facility: [facility] Dates of visit: 05/10-05/13/2020 Preadmission [...] as of this encounter (statuses as of 07/28/2023) [facility] History of Past illness Narrative* Problem Noted Date Diagnosed Date Resolved Date Mild protein-calorie malnutrition 08/26/2020 11/12/2021 Encounter for support and co ordination of transition of care 05/15/2020 05/02/2021 Overview: HOSPITAL/ER FOLLOW UP Which facility: [facility] Dates of visit: 05/10-05/13/2020 Preadmission [...] as of this encounter (statuses as of 08/02/2023) [facility] History of Past illness Narrative* Problem Noted Date Diagnosed Date Resolved Date Mild protein-calorie malnutrition 08/26/2020 11/12/2021 Encounter for support and co ordination of transition of care 05/15/2020 05/02/2021 Overview: HOSPITAL/ER FOLLOW UP Which facility: [facility] Dates of visit: 05/10-05/13/2020 Preadmission [...] as of this encounter (statuses as of 08/04/2023) [facility] History of Past illness Narrative* Problem Noted Date Diagnosed Date Resolved Date Mild protein-calorie malnutrition 08/26/2020 11/12/2021 Encounter for support and co ordination of transition of care 05/15/2020 05/02/2021 Overview: HOSPITAL/ER FOLLOW UP Which facility: [facility] Dates of visit: 05/10-05/13/2020 Preadmission [...] as of this encounter (statuses as of 08/04/2023) [facility] History of Past illness Narrative* Problem Noted Date Diagnosed Date Resolved Date Mild protein-calorie malnutrition 08/26/2020 11/12/2021 Encounter for support and co ordination of transition of care 05/15/2020 05/02/2021 Overview: HOSPITAL/ER FOLLOW UP Which facility: [facility] Dates of visit: 05/10-05/13/2020 Preadmission [...] as of this encounter (statuses as of 08/09/2023) [facility] History of Past illness Narrative* Problem Noted Date Diagnosed Date Resolved Date Mild protein-calorie malnutrition 08/26/2020 11/12/2021 Encounter for support and co ordination of transition of care 05/15/2020 05/02/2021 Overview: HOSPITAL/ER FOLLOW UP Which facility: [facility] Dates of visit: 05/10-05/13/2020 Preadmission [...] as of this encounter (statuses as of 08/10/2023) [facility] Unspecified [facility] D [facility]- [facility] Encounter for [facility] Diagnosis Abnormal mammogram- Primary Abnormal mammogram, unspecified [facility]- [facility] Diagnosis Radiculopathy, lumbar region- Primary Thoracic or lumbosacral neuritis or radiculitis, unspecified [facility] Diagnosis Alcohol abuse- Primary Alcohol abuse, unspecified Delusional disorder (HCC) Gastroesophageal reflux disease without esophagitis Esophageal reflux Hyperglycemia Other abnormal glucose Primary hypertension Unspecified essential hypertension [facility] Diagnosis Essential hypertension Unspecified essential hypertension [facility] Diagnosis Inconclusive mammogram [facility] Diagnosis Alcohol abuse- Primary Alcohol abuse, [...] of mild degree [facility] Diagnosis History of colonic polyps- Primary Personal history of colonic polyps Chronic active hepatitis C (HCC) Gastroesophageal reflux disease, unspecified whether esophagitis present [facility] Diagnosis Chronic active hepatitis C (HCC) [facility] Diagnosis History of colonic polyps Personal history of colonic polyps [facility] Diagnosis Radiculopathy, lumbar region- Primary Thoracic or lumbosacral neuritis or radiculitis, unspecified Spinal stenosis of lumbar region without neurogenic claudication Spinal stenosis, lumbar region, without neurogenic claudication Lumbar spondylosis Lumbosacral spondylosis without myelopathy Chronic bilateral low back pain without sciatica History of urinary urgency Personal history of other disorder of urinary system Cervical spondylosis without myelopathy [facility] Diagnosis Cervical spondylosis without myelopathy- Primary Radiculopathy, lumbar region Thoracic or lumbosacral neuritis or radiculitis, unspecified Spinal stenosis, lumbar region, without neurogenic claudication Cervical spondylosis without myelopathy Cervical spondylosis without myelopathy [facility] Diagnosis Urge incontinence- Primary Stress incontinence, female Female stress incontinence Radiculopathy, lumbar region Thoracic or lumbosacral neuritis or radiculitis, unspecified Spinal stenosis, lumbar region, without neurogenic claudication Cervical spondylosis without myelopathy Cervical spondylosis without myelopathy [facility] Diagnosis Other chronic pain- Primary Radiculopathy, lumbar region Thoracic or lumbosacral neuritis or radiculitis, unspecified Spinal stenosis, lumbar region, without neurogenic claudication Cervical spondylosis without myelopathy Cervical spondylosis without myelopathy [facility] Diagnosis Closed fracture of upper extremity, unspecified laterality, initial encounter- Primary Radiculopathy, lumbar region Thoracic or lumbosacral neuritis or radiculitis, unspecified Spinal stenosis, lumbar region, without neurogenic claudication Cervical spondylosis without myelopathy Cervical spondylosis without myelopathy [facility] Diagnosis Vaginal discharge- Primary Leukorrhea, not specified as infective Cervical spondylosis without myelopathy Cervical spondylosis without myelopathy [facility] Diagnosis Cervical spondylosis without myelopathy- Primary Cervical spondylosis without myelopathy [facility]* Diagnosis Essential hypertension Unspecified essential hypertension Low serum potassium Hyperlipidemia, mixed Mixed hyperlipidemia Fibromyalgia Mylagia and myositis, unspecified Cervical spondylosis without myelopathy [facility] Diagnosis Cervical spondylosis without myelopathy- Primary [facility] Diagnosis Essential hypertension- Primary Unspecified essential [...] Unspecified hypothyroidism [facility] Diagnosis Radiculopathy, lumbar region Thoracic or lumbosacral neuritis or radiculitis, unspecified Spinal stenosis, lumbar region, without neurogenic claudication [facility] Diagnosis Vitamin D deficiency Unspecified vitamin D deficiency [facility]* Diagnosis Dehydration- Primary Postural dizziness with [...] Other speech disturbance [facility] Diagnosis Cervical spondylosis without myelopathy- Primary [facility] Diagnosis Chronic hepatitis C without hepatic coma (HCC)- Primary Chronic hepatitis C without mention of hepatic coma Cervical spondylosis without myelopathy Cervical spondylosis without myelopathy documented [facility]* Diagnosis Chronic hepatitis C without hepatic coma (HCC)- Primary Chronic hepatitis C without mention of hepatic coma Gastroesophageal reflux disease, unspecified whether esophagitis present Cervical spondylosis without myelopathy Cervical spondylosis without myelopathy [facility]* Diagnosis Radiculopathy, lumbar region Thoracic or lumbosacral neuritis or radiculitis, unspecified Cervical spondylosis without myelopathy documented [facility]* Diagnosis Alcohol abuse, in remission- Primary [...] spondylosis without myelopathy documented [facility]* Diagnosis Tobacco abuse Tobacco use disorder Cervical spondylosis without myelopathy [facility]* Diagnosis Essential hypertension Unspecified essential hypertension [facility]* Diagnosis Cognitive impairment- Primary Unspecified persistent mental disorders due to conditions classified elsewhere Alcohol abuse, in remission Nondependent alcohol abuse, in remission Polysubstance abuse (HCC) Other, mixed, or unspecified nondependent drug abuse, unspecified Polypharmacy Encounter for long-term (current) use of other medications documented in this encounter [facility]* Diagnosis Hospital discharge follow-up- Primary Other [...] of hepatic coma documented [facility]* Diagnosis Vaginal discharge- Primary Leukorrhea, not specified as infective Screening examination for STD (sexually transmitted disease) Screening examination for venereal disease documented in this encounter [facility]* Diagnosis Chronic left-sided low back pain with sciatica, sciatica laterality unspecified- Primary Spinal stenosis of lumbar region without neurogenic claudication Spinal stenosis, lumbar region, without neurogenic claudication Lumbar spondylosis Lumbosacral spondylosis without myelopathy Fibromyalgia Mylagia and myositis, unspecified Other chronic pain documented in this [facility]* Diagnosis Spinal stenosis of lumbar region without neurogenic claudication Spinal stenosis, lumbar region, without neurogenic claudication documented in this [facility]* Diagnosis Radiculopathy, lumbar region Thoracic or lumbosacral neuritis or radiculitis, unspecified documented in this [facility]* Diagnosis COPD (chronic obstructive pulmonary disease) with chronic bronchitis (HCC)- Primary Obstructive chronic bronchitis without exacerbation [facility]* Diagnosis Radiculopathy, lumbar region Thoracic or lumbosacral neuritis or radiculitis, unspecified documented in this encounter [facility] note* Diagnosis Hyperlipidemia, mixed Mixed hyperlipidemia Fibromyalgia Mylagia and myositis, unspecified Stress incontinence Female stress incontinence Alcohol abuse, in remission Nondependent alcohol abuse, in remission Chronic hepatitis C without hepatic coma (HCC) Chronic hepatitis C without mention of hepatic coma Memory impairment Memory loss Iron deficiency anemia, unspecified iron deficiency anemia type documented in this encounter [facility] note* Diagnosis Cognitive impairment, mild, so stated- [...] radiculitis, unspecified [facility]* Diagnosis Vitamin D deficiency Unspecified vitamin D deficiency documented [facility]* Diagnosis Cognitive impairment- Primary Unspecified persistent mental disorders due to conditions classified elsewhere Alcohol abuse, in remission Nondependent alcohol abuse, in remission Polysubstance abuse (HCC) Other, mixed, or unspecified nondependent drug abuse, unspecified Polypharmacy Encounter for long-term (current) use of other medications documented [facility] this [facility]* Diagnosis Chronic left-sided low back pain with sciatica, sciatica laterality unspecified- Primary DDD (degenerative disc disease), lumbar Degeneration of lumbar or lumbosacral intervertebral disc Lumbar spondylosis Lumbosacral spondylosis without myelopathy Gait instability Abnormality of gait Weight loss Loss of weight [facility]* Diagnosis Lumbar spondylosis- Primary Lumbosacral spondylosis without myelopathy Cervical spondylosis without myelopathy Spinal stenosis of lumbar region without neurogenic claudication Spinal stenosis, lumbar region, without neurogenic claudication Myofascial pain Mylagia and myositis, unspecified documented [facility]* Diagnosis Mastodynia of left breast- Primary Dense breast tissue Vaginal discharge Leukorrhea, not specified as infective Vaginal odor Unspecified symptom associated with female genital organs documented [facility]* Diagnosis Hypertension, essential- Primary Unspecified essential hypertension [facility]* Diagnosis Primary hypertension- Primary Unspecified essential hypertension Unspecified essential hypertension [facility]* Diagnosis Cognitive impairment- Primary Unspecified persistent [...] depression type Hallucinations documented in this [facility]* Diagnosis Displacement of lumbar intervertebral disc without myelopathy- Primary Radiculopathy, lumbar region Thoracic or lumbosacral neuritis or radiculitis, unspecified [facility]* Diagnosis Displacement of lumbar intervertebral disc without myelopathy- Primary Radiculopathy, lumbar region Thoracic or lumbosacral neuritis or radiculitis, unspecified Displacement of lumbar intervertebral disc without myelopathy Radiculopathy, lumbar region Thoracic or lumbosacral neuritis or radiculitis, unspecified documented [facility]* Diagnosis Hyperlipidemia, mixed Mixed hyperlipidemia Fibromyalgia [...] radiculitis, unspecified [facility]* Diagnosis Vitamin D deficiency Unspecified vitamin D deficiency documented [facility]* Diagnosis Fibrocystic breast changes, bilateral- Primary Mastodynia of left breast Dense breast tissue Family history of breast cancer Family history of malignant neoplasm of breast Family history of ovarian cancer Family history of malignant neoplasm of ovary [facility]* Diagnosis Lumbar radiculopathy- Primary Thoracic or lumbosacral neuritis or radiculitis, unspecified Primary osteoarthritis of right hip Primary localized osteoarthrosis, pelvic region and thigh documented [facility]* Diagnosis Primary osteoarthritis of right hip- Primary Primary localized osteoarthrosis, pelvic region and thigh Lumbar radiculopathy Thoracic or lumbosacral neuritis or radiculitis, unspecified documented [facility]* Diagnosis Breast pain Mastodynia documented [facility]* Diagnosis Transient cerebral ischemia, unspecified type Balance problem Other symptoms involving nervous and musculoskeletal systems Falls frequently Personal history of fall [facility]* Diagnosis Breast pain Mastodynia documented [facility]* Diagnosis Weakness of both hands- Primary Numbness and tingling in both hands Complaining of cold hands documented [facility] this [facility]* Diagnosis Right lumbar radiculopathy- Primary Thoracic or lumbosacral neuritis or radiculitis, unspecified Radiculopathy, lumbar region Thoracic or lumbosacral neuritis or radiculitis, unspecified Gait instability Abnormality of gait [facility] Diagnosis Closed nondisplaced fracture of third cervical vertebra with routine healing, unspecified fracture morphology, subsequent encounter- Primary [facility] Diagnostic Procedure Only (Routine) - Authorized Specialty Diagnoses / Procedures Referred By Contac t Referred To Contact [facility] Diagnoses Abnormal mammogram Procedures US BREAST LTD LT US BREAST UNI REAL TIME WITH IMAGE LIMITED Mitul Abbott MD [address] [place] [address] [facility] [address] [address] Referral ID Status Reason Start Date Expiration Date Visits Requested Visits Authorized [id number] Authorized Auto-Generat ed Referral 10/02/2021 11/01/2022 1 1 * Diagnostic Procedure Only (Routine) - Authorized Specialty Diagnoses / Procedures [facility] To [facility] Diagnoses Abnormal mammogram Procedures US BREAST LTD RT US BREAST UNI REAL TIME WITH IMAGE LIMITED Mitul Abbott MD [address] [place] [address] [facility] [address] [address] Referral ID Status Reason Start Date Expiration Date Visits Requested Visits Authorized [id number] Authorized Auto-Generat ed Referral 10/02/2021 11/01/2022 1 1 * Diagnostic Procedure Only (Routine) - Authorized Specialty Diagnoses / Procedures Referred By Contac t Referred To Contact [facility] Diagnoses Abnormal mammogram Procedures SHILOH DIAGNOSTIC BILAT DIAGNOSTIC MAMMOGRAPHY COMPUTER-AIDED DETCJ BI Mitul Abbott MD [address] [place] [address] [facility] [address] [place] [address] Referral ID Status Reason Start Date Expiration Date Visits Requested Visits Authorized [id number] Authorized Auto-Generat ed Referral 10/02/2021 11/01/2022 1 1 [facility] for referral (narrative)* Diagnostic Procedure Only (Routine) - Pending Review Specialty Diagnoses / Procedures Referred By Contac t Referred To Contact [facility] Diagnoses Inconclusive mammogram Procedures US BREAST LTD RT US BREAST UNI REAL TIME WITH IMAGE LIMITED Jaimee Palomares PA-C [address] [place] [address] [facility] [address] [place] [address] Referral ID Status Reason Start Date Expiration Date Visits Requested Visits Authorized [id number] Pending Review Auto-Generat ed Referral 10/04/2021 11/03/2022 1 1 * Diagnostic Procedure Only (Routine) - Pending Review Specialty Diagnoses / Procedures Referred By Yana t Referred To Contact [facility] Diagnoses Inconclusive mammogram Procedures US BREAST LTD LT US BREAST UNI REAL TIME WITH IMAGE LIMITED Jaimee Palomares PA-C [address] [place] [address] [facility] [address] [place] [address] Referral ID Status Reason Start Date Expiration Date Visits Requested Visits Authorized [id number] Pending Review Auto-Generat ed Referral 10/04/2021 11/03/2022 1 1 * Diagnostic Procedure Only (Routine) - Pending Review Specialty Diagnoses / Procedures Referred By Contac t Referred To Contact [facility] Diagnoses Inconclusive mammogram Procedures SHILOH DIAGNOSTIC BILAT DIAGNOSTIC MAMMOGRAPHY COMPUTER-AIDED DETCJ BI Jaimee Palomares PA-C [address] [place] [address] [facility] [address] [place] [address] Referral ID Status Reason Start Date Expiration Date Visits Requested Visits Authorized [id number] Pending Review Auto-Generat ed Referral 10/04/2021 11/03/2022 1 1 [facility] for referral (narrative)* Diagnostic Procedure Only (Routine) - Closed Specialty Diagnoses / Procedures Referred By Contac t Referred To Contact X[facility] IMAGING Diagnoses Cervicalgia Procedures XR CERV OTHER 4V AP/LAT/OBL RADEX SPINE CERVICAL 4 OR 5 VIEWS Jaimee Palomares PA-C [address] [place] [address] X[facility] Referral ID Status Reason Start Date Expiration Date V isits Requested Visits Authorized [id number] Closed Auto-Generate d Referral 11/12/2021 12/12/2022 1 1 * Consult, Test, Treat (Routine) - Authorized Specialty Diagnoses / Procedures Referred By Contac t Referred To Contact General Surgery Diagnoses Screening for colon cancer Procedures CONSULT TO GENERAL SURGERY OFFICE/OUTPATIENT NEW [facility] MDM 60-74 MINUTES Jaimee Palomares PA-C [address] [place] [address] Referral ID Status Reason Start Date Expiration Date Visits Requested Visits Authorized [id number] Authorized PCP Requested Referral 11/12/2021 11/12/2022 1 1 * Physical Therapy (Routine) - Pending Review Specialty Diagnoses / Procedures Referred By Contac t Referred To Contact [facility] Diagnoses Stress incontinence Procedures CONSULT TO PHYSICAL THERAPY PHYSICAL THERAPY EVALUATION HIGH COMPLEX 45 MINS Jaimee Palomares PA-C [address] [place] [address] [facility] [place] [address] [place] [address] Referral ID Status Reason Start Date Expiration Date Visits Requested Visits Authorized [id number] Pending Review Auto-Generat ed Referral 11/12/2021 11/12/2022 1 1 [facility] for referral (narrative)* Outpatient Procedure (Routine) - Authorized Specialty Diagnoses / Procedures Referred By Contac t Referred To Contact [facility] Diagnoses History of colonic polyps Procedures COLONOSCOPY DIAGNOSTIC COLONOSCOPY FLX DX W/COLLJ SPEC WHEN PFRMD Josué Blevins MD [address] [facility] [place] [address] [address] Referral ID Status Reason Start Date Expiration Date Visits Requested Visits Authorized [id number] Authorized Auto-Generat ed Referral 11/23/2021 11/23/2022 1 1 * Diagnostic Procedure Only (Routine) - Authorized Specialty Diagnoses / Procedures Referred By Yana t Referred To Contact [facility] Diagnoses Chronic active hepatitis C (HCC) Procedures US ABD RT UPPER QUADRANT US ABDOMINAL REAL TIME W/IMAGE LIMITED Josué Blevins MD [address] [place] [address] [facility] Referral ID Status Reason Start Date Expiration Date Visits Requested Visits Authorized [id number] Authorized Auto-Generat ed Referral 11/23/2021 12/23/2022 1 1 * Outpatient Procedure (Routine) - Pending Review Specialty Diagnoses / Procedures Referred By Contac t Referred [facility] Diagnoses Chronic active hepatitis C (HCC) Procedures DDI VIBRATION CONTROLLED TRANSIENT ELASTOGRAPHY (VCTE) LIVER ELASTOGRAPHY W/O IMAG W/I&R Josué Blevins MD [address] [facility] [place] [address] [facility] [address] [place] [address] Referral ID Status Reason Start Date Expiration Date Visits Requested Visits Authorized [id number] Pending Review Auto-Generat ed Referral 11/23/2021 11/23/2022 1 1 [facility] for referral (narrative)* Diagnostic Procedure Only (Routine) - Closed Specialty Diagnoses / Procedures Referred By Contac t Referred To Contact [facility] Diagnoses Chronic active hepatitis C (HCC) Procedures US ABD RT UPPER QUADRANT US ABDOMINAL REAL TIME W/IMAGE LIMITED Josué Blevins MD [address] [place] [address] [facility] Referral ID Status Reason Start Date Expiration Date V isits Requested Visits Authorized [id number] Closed Auto-Generate d Referral 11/23/2021 12/23/2022 1 1 [facility] for referral (narrative)* Outpatient Procedure (Routine) - Closed Specialty Diagnoses / Procedures Referred By Contac t Referred To Contact [facility] Diagnoses History of colonic polyps Procedures COLONOSCOPY DIAGNOSTIC COLONOSCOPY FLX DX W/COLLJ SPEC WHEN PFRMD Josué Blevins MD [address] [place] [address] [facility] [place] [address] [place] [address] Referral ID Status Reason Start Date Expiration Date V isits Requested Visits Authorized [id number] Closed Auto-Generate d Referral 11/23/2021 11/23/2022 1 1 [facility] for referral (narrative)* - Pending Review Specialty Diagnoses / Procedures Referred By Contac t Referred To Contact Physical Therapy Diagnoses Spinal stenosis of lumbar region without neurogenic claudication Procedures CONSULT TO PHYSICAL THERAPY Shira Kam, [employer] [address] [place] [address] Referral ID Status Reason Start Date Expiration Date V isits Requested Visits Authorized [id number] Pending Review 06/03/2022 09/01/2022 1 1 [facility] for referral (narrative)* Diagnostic Procedure Only (Routine) - Closed Specialty Diagnoses / Procedures Referred By Contac t Referred To Contact [facility] Diagnoses Breast pain Procedures US BREAST LTD LT US BREAST UNI REAL TIME WITH IMAGE LIMITED Memo Huber MD [address] [place] [address] [facility] [address] [place] [address] Referral ID Status Reason Start Date Expiration Date V isits Requested Visits Authorized [id number] Closed Auto-Generate d Referral 07/29/2022 08/28/2023 1 1 [facility] for visit Narrative* Diagnostic Procedure Only (Routine) - Closed Specialty Diagnoses / Procedures Referred By Contac t Referred To Contact BR IMAGING Diagnoses Inconclusive mammogram Procedures SHILOH DIAGNOSTIC BILAT DIAGNOSTIC MAMMOGRAPHY COMPUTER-AIDED DETCJ BI Jaimee Palomares PA-C [address] [place] [address] Br Imaging [address] [place] [address] Referral ID Status Reason Start Date Expiration Date V isits Requested Visits Authorized [id number] Closed Auto-Generate d Referral 10/04/2021 11/03/2022 1 1 [facility] for visit Narrative* Diagnostic Procedure Only (Routine) - Closed Specialty Diagnoses / Procedures Referred By Contac t Referred To Contact US IMAGING Diagnoses Chronic active hepatitis C (HCC) Procedures US ABD RT UPPER QUADRANT US ABDOMINAL REAL TIME W/IMAGE LIMITED Josué Blevins MD [address] [place] [address] Us Imaging Referral ID Status Reason Start Date Expiration Date V isits Requested Visits Authorized [id number] Closed Auto-Generate d Referral 11/23/2021 12/23/2022 1 1 [facility] for visit Narrative* Outpatient Procedure (Routine) - Closed Specialty Diagnoses / Procedures Referred By Contac t Referred To Contact [facility] Diagnoses History of colonic polyps Procedures COLONOSCOPY DIAGNOSTIC COLONOSCOPY FLX DX W/COLLJ SPEC WHEN PFRMD Josué Blevins MD [address] [place] [address] [facility] [address] [place] [address] Referral ID Status Reason Start Date Expiration Date V isits Requested Visits Authorized [id number] Closed Auto-Generate d Referral 11/23/2021 11/23/2022 1 1 [facility] for visit Narrative* Auth/Cert Specialty Diagnoses / Procedures Referred By Contac t Referred To Contact Diagnoses Radiculopathy, lumbar region Spinal stenosis, lumbar region, without neurogenic claudication Radiculopathy, lumbar region [M54.16] Spinal stenosis, lumbar region, without neurogenic claudication [M48.061] Procedures NJX AA&/STRD TFRML EPI LUMBAR/SACRAL 1 LEVEL INJECTION ANESTHETIC AGENT/STEROID TRANSFORAMINAL EPIDURAL W/ IMAGING GUIDANCE LUMBAR BILATERAL [facility] [address] [place] [address] Referral ID Status Reason Start Date Expiration Date Visits Re quested Visits Authorized [id number] 1 1 [facility] for visit Narrative* Diagnostic Procedure Only (Routine) - Closed Specialty Diagnoses / Procedures Referred By Contac t Referred To Contact BR IMAGING Diagnoses Breast pain Procedures SHILOH DIAGNOSTIC BILAT DIAGNOSTIC MAMMOGRAPHY COMPUTER-AIDED DETCJ BI Memo Huber MD [address] [place] [address] Br [facility] [address] [place] [address] Referral ID Status Reason Start Date Expiration Date V isits Requested Visits Authorized [id number] Closed Auto-Generate d Referral 07/29/2022 08/28/2023 1 1 [facility] Summary Purpose Family History No Family History Records FoundNo Family History Records FoundNo Family History Records FoundNo Family History Records FoundNo Family History Records Found Advance Directives No Advanced Directives Records FoundDocuments on File Type Date Recorded Patient Emergency Room Clinician Expl anation Advance Directive(s) 10/12/2018 8:00 AM [...] Documents on File Type Date Recorded Patient Emergency Room Clinician Expl anation Advance Directive(s) 10/12/2018 8:00 AM [...] Documents on File Type Date Recorded Patient Emergency Room Clinician Expl anation Advance Directive(s) 11/27/2021 2:06 PM [...] Documents on File Type Date Recorded Patient Emergency Room Clinician Expl anation Advance Directive(s) 11/27/2021 2:06 PM [...] Referred To Contact Jaimee Palomares PA-C [address] [place] [address] Referral ID Status Reason Start Date Expiration Date V isits Requested Visits Authorized [id number] Pending Review 1 1 Referral ID Status Reason Start Date Expiration Date V isits Requested Visits Authorized [id number] Pending Review 1 1 Specialty Diagnoses / Procedures Referred By Contac t Referred To Contact Diagnoses Radiculopathy, lumbar region Spinal stenosis of lumbar region without neurogenic claudication Procedures CONSULT TO [facility] Denice Gr APRN.[employer] [address] [place] [address] [facility] [address] [place] [address] Referral ID Status Reason Start Date Expiration Date Visits Requested Visits Authorized [id number] Authorized PCP Requested Referral 12/09/2021 03/09/2022 1 1 Specialty Diagnoses / Procedures Referred By Contac t Referred To Contact Urology Diagnoses History of urinary urgency Procedures CONSULT TO UROLOGY OFFICE/OUTPATIENT [facility] MDM 60-74 MINUTES Denice Gr, ELECTRONICS DETAIL DRAFTSPERSON.[employer] [address] [place] [address] Referral ID Status Reason Start Date Expiration Date Visits Requested Visits Authorized [id number] Authorized PCP Requested Referral 12/09/2021 12/09/2022 1 1 Specialty Diagnoses / Procedures Referred By Contac t Referred To Contact Diagnoses Other chronic pain Procedures CONSULT TO [facility] Denice Gr, ELECTRONICS DETAIL DRAFTSPERSON.[employer]PER[employer] [address] [place] [address] [facility] [address] [place] [address] Referral ID Status Reason Start Date Expiration Date V isits Requested Visits Authorized [id number] Closed PCP Requested Referral 01/04/2022 04/04/2022 1 1 Specialty Diagnoses / Procedures Referred By Contac t Referred To Contact MR IMAGING Diagnoses Cognitive impairment, mild, so stated Memory impairment Slurred speech Procedures MRI BRAIN WO IVCON MRI BRAIN BRAIN STEM W/O CONTRAST MATERIAL Jaimee Palomares PA-C [address] [place] [address] Mr Imaging Referral ID Status Reason Start Date Expiration Date Visits Requested Visits Authorized [id number] Pending Review Auto-Generat ed Referral 02/27/2022 03/29/2023 1 1 Specialty Diagnoses / Procedures Referred By Contac t Referred To Contact Neurology Diagnoses Memory impairment Chronic hepatitis C without hepatic coma (HCC) Alcohol abuse, in remission Procedures CONSULT TO NEUROLOGY OFFICE/OUTPATIENT [facility] 60-74 MINUTES Jaimee Palomares PA-C [address] [place] [address] Referral ID Status Reason Start Date Expiration Date Visits Requested Visits Authorized [id number] Authorized PCP Requested Referral 02/25/2022 02/25/2023 1 1 Specialty Diagnoses / Procedures Referred By Contac t Referred To Contact CT IMAGING Diagnoses Lung nodules Procedures CT CHEST WO IVCON DIAGNOSTIC COMPUTED TOMOGRAPHY THORAX W/O CNTRST Jaimee Palomares PA-C [address] [place] [address] Ct Imaging Referral ID Status Reason Start Date Expiration Date Visits Requested Visits Authorized [id number] Pending Review Auto-Generat ed Referral 06/13/2023 1 1 Specialty Diagnoses / Procedures Referred By Contac t Referred To Contact Memo Huber MD [address] [place] [address] Referral ID Status Reason Start Date Expiration Date Visits Re quested Visits Authorized [id number] Closed 1 1 Referral ID Status Reason Start Date Expiration Date Visits Re quested Visits Authorized [id number] Closed 1 1 Specialty Diagnoses / Procedures Referred By Contac t Referred To Contact Breast Diseases Diagnoses Mastodynia of left breast Dense breast tissue Procedures CONSULT TO BREAST CENTER OFFICE/OUTPATIENT [facility] 60-74 MINUTES Jenifer Yeager APRN.[facility] [address] [place] [address] Referral ID Status Reason Start Date Expiration Date Visits Requested Visits Authorized [id number] Authorized PCP Requested Referral 10/20/2022 10/20/2023 1 1 Specialty Diagnoses / Procedures Referred By Contac t Referred To Contact MR IMAGING Diagnoses Transient cerebral ischemia, unspecified type Balance problem Falls frequently Procedures MRI BRAIN WO IVCON MRI BRAIN BRAIN STEM W/O CONTRAST MATERIAL Urvashi Hughes, SARAI.[employer] [address] [place] [address] Mr Imaging Referral ID Status Reason Start Date Expiration Date Visits Requested Visits Authorized [id number] Pending Review Auto-Generat ed Referral 12/16/2022 01/15/2024 1 1 Specialty Diagnoses / Procedures Referred By Contac t Referred To Contact [facility] Diagnoses Cognitive impairment Hallucinations Procedures EPIL EEG ROUTINE ELECTROENCEPHALOGRAM REC COMA/SLEEP ONLY Urvashi Hughes, ELECTRONICS DETAIL DRAFTSPERSON.[employer] [address] [place] [address] Neurological [place] [id number] [place] [phone] Referral ID Status Reason Start Date Expiration Date Visits Requested Visits Authorized [id number] Authorized Auto-Generat ed Referral 12/16/2022 12/17/2023 1 1 Specialty Diagnoses / Procedures Referred By Contac t Referred To Contact Diagnoses Alcohol abuse, in remission Polysubstance abuse (HCC) Depression, unspecified depression type Procedures CONSULT TO PSYCHIATRY OFFICE/OUTPATIENT [facility] 60-74 MINUTES Urvashi Hughes, ELECTRONICS DETAIL DRAFTSPERSON.[employer]PER[employer] [address] [place] [phone] Referral ID Status Reason Start Date Expiration Date Visits Requested Visits Authorized [id number] Pending Review PCP Requested Referral 12/16/2022 12/16/2023 1 1 Referral ID Status Reason Start Date Expiration Date Visits Re quested Visits Authorized [id number] Closed 1 1 Specialty Diagnoses / Procedures Referred By Contac t Referred To Contact Diagnoses Family history of breast cancer Family history of ovarian cancer Procedures CONSULT TO MEDICAL GENETICS - CANCER MEDICAL GENETICS COUNSELING EACH 30 MINUTES Agustina Brown PA-C [address] [address] [facility] [place] [phone] Referral ID Status Reason Start Date Expiration Date Visits Requested Visits Authorized [id number] Authorized PCP Requested Referral Auto-Generate d Referral 02/14/2023 02/14/2024 1 1 Specialty Diagnoses / Procedures Referred By Contac t Referred To Contact [facility] Diagnoses Primary osteoarthritis of right hip Lumbar radiculopathy Procedures PT AQUATIC REHAB FOLLOW UP ORDER THER PX 1/> AREAS EACH 15 MIN AQUA THER W/XERSS Pt c Bath [address] [place] [address] [facility] [address] [address] Referral ID Status Reason Start Date Expiration Date Visits Requested Visits Authorized [id number] Pending Review PCP Requested Referral Auto-Generate d Referral 02/16/2023 05/17/2023 1 1 Specialty Diagnoses / Procedures Referred By Contac t Referred To Contact MR IMAGING Diagnoses Transient cerebral ischemia, unspecified type Balance problem Falls frequently Procedures MRI BRAIN WO IVCON MRI BRAIN BRAIN STEM W/O CONTRAST MATERIAL Urvashi Hughes, SARAI.[employer] SUPER[employer] [address] [place] [address] Mr Imaging [facility] Referral ID Status Reason Start Date Expiration Date V isits Requested Visits Authorized [id number] Closed Auto-Generate d Referral 01/12/2023 03/13/2023 1 1 Specialty Diagnoses / Procedures Referred By Contac t Referred To Contact MR IMAGING Diagnoses Weakness of both hands Numbness and tingling in both hands Complaining of cold hands Procedures MRI CERVICAL SPINE WO IVCON MRI SPINAL CANAL CERVICAL W/O CONTRAST MATRL Flo Martino MD [address] [place] [address] [facility] [place] [address] Referral ID Status Reason Start Date Expiration Date V isits Requested Visits Authorized [id number] Open Auto-Generate d Referral 05/10/2023 06/08/2024 1 1 Specialty Diagnoses / Procedures Referred By Contac t Referred To Contact [facility] Diagnoses Complaining of cold hands Procedures US ARM ARTERIAL [facility] DUP-SCAN UXTR ART/ARTL BPGS COMPL BI STUDY Flo Martino MD [address] [place] [address] [facility] [address] [place] [address] Referral ID Status Reason Start Date Expiration Date Visits Requested Visits Authorized [id number] Authorized Auto-Generat ed Referral 05/09/2024 1 1 Specialty Diagnoses / Procedures Referred By Contact Referred To Contact [facility] Diagnoses Weakness of both hands Numbness and tingling in both hands Procedures EMG(NEURO/NI) NERVE CONDUCTION STUDIES 9-10 STUDIES Flo Martino MD [address] [place] [address] [facility] [address] [place] [address] Referral ID Status Reason Start Date Expiration Date Visits Requested Visits Authorized [id number] Authorized Auto-Generat ed Referral 3 05/10/2024 1 1 Specialty Diagnoses / Procedures Referred By Contac t Referred To Contact Pain Management Diagnoses Closed nondisplaced fracture of third cervical vertebra with routine healing, unspecified fracture morphology, subsequent encounter Procedures CONSULT TO PAIN MGT OFFICE/OUTPATIENT NEW HIGH MDM 60 MINUTES Jaimee Palomares PA-C [address] [place] [address] Referral ID Status Reason Start Date Expiration Date Visits Requested Visits Authorized [id number] Authorized PCP Requested Referral 08/04/2023 08/03/2024 1 1 Additional Source Comments INFORMATION SOURCE (unrecogn ized section and content) DATE CREATED AUTHOR AUTHOR'S ORGANIZ ATION 05/25/2019 [facility] DATE CREATED AUTHOR AUTHOR'S ORGANIZ ATION 05/29/2023 [facility] DATE CREATED AUTHOR AUTHOR'S ORGANIZ ATION 06/25/2023 [facility] DATE CREATED AUTHOR AUTHOR'S ORGANIZ ATION 08/10/2023 [facility] Source Comments (unrecognize d section and content) In the event this informatio n is protected by the Federal Confidentiality of Alcohol and Drug Abuse Patient Records regulations: The Federal rules restrict any use of the information to criminally investigate or prosecute any alcohol or drug abuse patient.[facility] the event this information is protected by the Federal Confidentiality of Alcohol and Drug Abuse Patient Records regulations: The Federal rules restrict any use of the information to criminally investigate or prosecute any alcohol or drug abuse patient.[facility] HospitalIn the event this information is protected by the Federal Confidentiality of Alcohol and Drug Abuse Patient Records regulations: The Federal rules restrict any use of the information to criminally investigate or prosecute any alcohol or drug abuse patient.[facility] HospitalIn the event this information is protected by the Federal Confidentiality of Alcohol and Drug Abuse Patient Records regulations: The Federal rules restrict any use of the information to criminally investigate or prosecute any alcohol or drug abuse patient.[facility] HospitalIn the event this information is protected by the Federal Confidentiality of Alcohol and Drug Abuse Patient Records regulations: The Federal rules restrict any use of the information to criminally investigate or prosecute any alcohol or drug abuse patient.[facility] HospitalIn the event this information is protected by the Federal Confidentiality of Alcohol and Drug Abuse Patient Records regulations: The Federal rules restrict any use of the information to criminally investigate or prosecute any alcohol or drug abuse patient.[facility] HospitalIn the event this information is protected by the Federal Confidentiality of Alcohol and Drug Abuse Patient Records regulations: The Federal rules restrict any use of the information to criminally investigate or prosecute any alcohol or drug abuse patient.[facility] HospitalIn the event this information is protected by the Federal Confidentiality of Alcohol and Drug Abuse Patient Records regulations: The Federal rules restrict any use of the information to criminally investigate or prosecute any alcohol or drug abuse patient.[facility] HospitalIn the event this information is protected by the Federal Confidentiality of Alcohol and Drug Abuse Patient Records regulations: The Federal rules restrict any use of the information to criminally investigate or prosecute any alcohol or drug abuse patient.[facility] HospitalIn the event this information is protected by the Federal Confidentiality of Alcohol and Drug Abuse Patient Records regulations: The Federal rules restrict any use of the information to criminally investigate or prosecute any alcohol or drug abuse patient.[facility] HospitalIn the event this information is protected by the Federal Confidentiality of Alcohol and Drug Abuse Patient Records regulations: The Federal rules restrict any use of the information to criminally investigate or prosecute any alcohol or drug abuse patient.[facility] HospitalIn the event this information is protected by the Federal Confidentiality of Alcohol and Drug Abuse Patient Records regulations: The Federal rules restrict any use of the information to criminally investigate or prosecute any alcohol or drug abuse patient.[facility] HospitalIn the event this information is protected by the Federal Confidentiality of Alcohol and Drug Abuse Patient Records regulations: The Federal rules restrict any use of the information to criminally investigate or prosecute any alcohol or drug abuse patient.[facility] HospitalIn the event this information is protected by the Federal Confidentiality of Alcohol and Drug Abuse Patient Records regulations: The Federal rules restrict any use of the information to criminally investigate or prosecute any alcohol or drug abuse patient.[facility] HospitalIn the event this information is protected by the Federal Confidentiality of Alcohol and Drug Abuse Patient Records regulations: The Federal rules restrict any use of the information to criminally investigate or prosecute any alcohol or drug abuse patient.[facility] HospitalIn the event this information is protected by the Federal Confidentiality of Alcohol and Drug Abuse Patient Records regulations: The Federal rules restrict any use of the information to criminally investigate or prosecute any alcohol or drug abuse patient.[facility] HospitalIn the event this information is protected by the Federal Confidentiality of Alcohol and Drug Abuse Patient Records regulations: The Federal rules restrict any use of the information to criminally investigate or prosecute any alcohol or drug abuse patient.[facility] HospitalIn the event this information is protected by the Federal Confidentiality of Alcohol and Drug Abuse Patient Records regulations: The Federal rules restrict any use of the information to criminally investigate or prosecute any alcohol or drug abuse patient.[facility] HospitalIn the event this information is protected by the Federal Confidentiality of Alcohol and Drug Abuse Patient Records regulations: The Federal rules restrict any use of the information to criminally investigate or prosecute any alcohol or drug abuse patient.[facility] HospitalIn the event this information is protected by the Federal Confidentiality of Alcohol and Drug Abuse Patient Records regulations: The Federal rules restrict any use of the information to criminally investigate or prosecute any alcohol or drug abuse patient.[facility] HospitalIn the event this information is protected by the Federal Confidentiality of Alcohol and Drug Abuse Patient Records regulations: The Federal rules restrict any use of the information to criminally investigate or prosecute any alcohol or drug abuse patient.[facility] HospitalIn the event this information is protected by the Federal Confidentiality of Alcohol and Drug Abuse Patient Records regulations: The Federal rules restrict any use of the information to criminally investigate or prosecute any alcohol or drug abuse patient.[facility] HospitalIn the event this information is protected by the Federal Confidentiality of Alcohol and Drug Abuse Patient Records regulations: The Federal rules restrict any use of the information to criminally investigate or prosecute any alcohol or drug abuse patient.[facility] HospitalIn the event this information is protected by the Federal Confidentiality of Alcohol and Drug Abuse Patient Records regulations: The Federal rules restrict any use of the information to criminally investigate or prosecute any alcohol or drug abuse patient.[facility] HospitalIn the event this information is protected by the Federal Confidentiality of Alcohol and Drug Abuse Patient Records regulations: The Federal rules restrict any use of the information to criminally investigate or prosecute any alcohol or drug abuse patient.[facility] HospitalIn the event this information is protected by the Federal Confidentiality of Alcohol and Drug Abuse Patient Records regulations: The Federal rules restrict any use of the information to criminally investigate or prosecute any alcohol or drug abuse patient.[facility] HospitalIn the event this information is protected by the Federal Confidentiality of Alcohol and Drug Abuse Patient Records regulations: The Federal rules restrict any use of the information to criminally investigate or prosecute any alcohol or drug abuse patient.[facility] HospitalIn the event this information is protected by the Federal Confidentiality of Alcohol and Drug Abuse Patient Records regulations: The Federal rules restrict any use of the information to criminally investigate or prosecute any alcohol or drug abuse patient.[facility] HospitalIn the event this information is protected by the Federal Confidentiality of Alcohol and Drug Abuse Patient Records regulations: The Federal rules restrict any use of the information to criminally investigate or prosecute any alcohol or drug abuse patient.[facility] HospitalIn the event this information is protected by the Federal Confidentiality of Alcohol and Drug Abuse Patient Records regulations: The Federal rules restrict any use of the information to criminally investigate or prosecute any alcohol or drug abuse patient.[facility] HospitalIn the event this information is protected by the Federal Confidentiality of Alcohol and Drug Abuse Patient Records regulations: The Federal rules restrict any use of the information to criminally investigate or prosecute any alcohol or drug abuse patient.[facility] HospitalIn the event this information is protected by the Federal Confidentiality of Alcohol and Drug Abuse Patient Records regulations: The Federal rules restrict any use of the information to criminally investigate or prosecute any alcohol or drug abuse patient.[facility] HospitalIn the event this information is protected by the Federal Confidentiality of Alcohol and Drug Abuse Patient Records regulations: The Federal rules restrict any use of the information to criminally investigate or prosecute any alcohol or drug abuse patient.[facility] HospitalIn the event this information is protected by the Federal Confidentiality of Alcohol and Drug Abuse Patient Records regulations: The Federal rules restrict any use of the information to criminally investigate or prosecute any alcohol or drug abuse patient.[facility] HospitalIn the event this information is protected by the Federal Confidentiality of Alcohol and Drug Abuse Patient Records regulations: The Federal rules restrict any use of the information to criminally investigate or prosecute any alcohol or drug abuse patient.[facility] HospitalIn the event this information is protected by the Federal Confidentiality of Alcohol and Drug Abuse Patient Records regulations: The Federal rules restrict any use of the information to criminally investigate or prosecute any alcohol or drug abuse patient.[facility] HospitalIn the event this information is protected by the Federal Confidentiality of Alcohol and Drug Abuse Patient Records regulations: The Federal rules restrict any use of the information to criminally investigate or prosecute any alcohol or drug abuse patient.[facility] HospitalIn the event this information is protected by the Federal Confidentiality of Alcohol and Drug Abuse Patient Records regulations: The Federal rules restrict any use of the information to criminally investigate or prosecute any alcohol or drug abuse patient.[facility] HospitalIn the event this information is protected by the Federal Confidentiality of Alcohol and Drug Abuse Patient Records regulations: The Federal rules restrict any use of the information to criminally investigate or prosecute any alcohol or drug abuse patient.[facility] HospitalIn the event this information is protected by the Federal Confidentiality of Alcohol and Drug Abuse Patient Records regulations: The Federal rules restrict any use of the information to criminally investigate or prosecute any alcohol or drug abuse patient.[facility] HospitalIn the event this information is protected by the Federal Confidentiality of Alcohol and Drug Abuse Patient Records regulations: The Federal rules restrict any use of the information to criminally investigate or prosecute any alcohol or drug abuse patient.[facility] HospitalIn the event this information is protected by the Federal Confidentiality of Alcohol and Drug Abuse Patient Records regulations: The Federal rules restrict any use of the information to criminally investigate or prosecute any alcohol or drug abuse patient.[facility] HospitalIn the event this information is protected by the Federal Confidentiality of Alcohol and Drug Abuse Patient Records regulations: The Federal rules restrict any use of the information to criminally investigate or prosecute any alcohol or drug abuse patient.[facility] HospitalIn the event this information is protected by the Federal Confidentiality of Alcohol and Drug Abuse Patient Records regulations: The Federal rules restrict any use of the information to criminally investigate or prosecute any alcohol or drug abuse patient.[facility] HospitalIn the event this information is protected by the Federal Confidentiality of Alcohol and Drug Abuse Patient Records regulations: The Federal rules restrict any use of the information to criminally investigate or prosecute any alcohol or drug abuse patient.[facility] HospitalIn the event this information is protected by the Federal Confidentiality of Alcohol and Drug Abuse Patient Records regulations: The Federal rules restrict any use of the information to criminally investigate or prosecute any alcohol or drug abuse patient.[facility] HospitalIn the event this information is protected by the Federal Confidentiality of Alcohol and Drug Abuse Patient Records regulations: The Federal rules restrict any use of the information to criminally investigate or prosecute any alcohol or drug abuse patient.[facility] HospitalIn the event this information is protected by the Federal Confidentiality of Alcohol and Drug Abuse Patient Records regulations: The Federal rules restrict any use of the information to criminally investigate or prosecute any alcohol or drug abuse patient.[facility] HospitalIn the event this information is protected by the Federal Confidentiality of Alcohol and Drug Abuse Patient Records regulations: The Federal rules restrict any use of the information to criminally investigate or prosecute any alcohol or drug abuse patient.[facility] HospitalIn the event this information is protected by the Federal Confidentiality of Alcohol and Drug Abuse Patient Records regulations: The Federal rules restrict any use of the information to criminally investigate or prosecute any alcohol or drug abuse patient.[facility] HospitalIn the event this information is protected by the Federal Confidentiality of Alcohol and Drug Abuse Patient Records regulations: The Federal rules restrict any use of the information to criminally investigate or prosecute any alcohol or drug abuse patient.[facility] HospitalIn the event this information is protected by the Federal Confidentiality of Alcohol and Drug Abuse Patient Records regulations: The Federal rules restrict any use of the information to criminally investigate or prosecute any alcohol or drug abuse patient.[facility] HospitalIn the event this information is protected by the Federal Confidentiality of Alcohol and Drug Abuse Patient Records regulations: The Federal rules restrict any use of the information to criminally investigate or prosecute any alcohol or drug abuse patient.[facility] HospitalIn the event this information is protected by the Federal Confidentiality of Alcohol and Drug Abuse Patient Records regulations: The Federal rules restrict any use of the information to criminally investigate or prosecute any alcohol or drug abuse patient.[facility] HospitalIn the event this information is protected by the Federal Confidentiality of Alcohol and Drug Abuse Patient Records regulations: The Federal rules restrict any use of the information to criminally investigate or prosecute any alcohol or drug abuse patient.[facility] HospitalIn the event this information is protected by the Federal Confidentiality of Alcohol and Drug Abuse Patient Records regulations: The Federal rules restrict any use of the information to criminally investigate or prosecute any alcohol or drug abuse patient.[facility] HospitalIn the event this information is protected by the Federal Confidentiality of Alcohol and Drug Abuse Patient Records regulations: The Federal rules restrict any use of the information to criminally investigate or prosecute any alcohol or drug abuse patient.[facility] HospitalIn the event this information is protected by the Federal Confidentiality of Alcohol and Drug Abuse Patient Records regulations: The Federal rules restrict any use of the information to criminally investigate or prosecute any alcohol or drug abuse patient.[facility] HospitalIn the event this information is protected by the Federal Confidentiality of Alcohol and Drug Abuse Patient Records regulations: The Federal rules restrict any use of the information to criminally investigate or prosecute any alcohol or drug abuse patient.[facility] HospitalIn the event this information is protected by the Federal Confidentiality of Alcohol and Drug Abuse Patient Records regulations: The Federal rules restrict any use of the information to criminally investigate or prosecute any alcohol or drug abuse patient.[facility] HospitalIn the event this information is protected by the Federal Confidentiality of Alcohol and Drug Abuse Patient Records regulations: The Federal rules restrict any use of the information to criminally investigate or prosecute any alcohol or drug abuse patient.[facility] HospitalIn the event this information is protected by the Federal Confidentiality of Alcohol and Drug Abuse Patient Records regulations: The Federal rules restrict any use of the information to criminally investigate or prosecute any alcohol or drug abuse patient.[facility] HospitalIn the event this information is protected by the Federal Confidentiality of Alcohol and Drug Abuse Patient Records regulations: The Federal rules restrict any use of the information to criminally investigate or prosecute any alcohol or drug abuse patient.[facility] HospitalIn the event this information is protected by the Federal Confidentiality of Alcohol and Drug Abuse Patient Records regulations: The Federal rules restrict any use of the information to criminally investigate or prosecute any alcohol or drug abuse patient.[facility] HospitalIn the event this information is protected by the Federal Confidentiality of Alcohol and Drug Abuse Patient Records regulations: The Federal rules restrict any use of the information to criminally investigate or prosecute any alcohol or drug abuse patient.[facility] HospitalIn the event this information is protected by the Federal Confidentiality of Alcohol and Drug Abuse Patient Records regulations: The Federal rules restrict any use of the information to criminally investigate or prosecute any alcohol or drug abuse patient.[facility] HospitalIn the event this information is protected by the Federal Confidentiality of Alcohol and Drug Abuse Patient Records regulations: The Federal rules restrict any use of the information to criminally investigate or prosecute any alcohol or drug abuse patient.[facility] HospitalIn the event this information is protected by the Federal Confidentiality of Alcohol and Drug Abuse Patient Records regulations: The Federal rules restrict any use of the information to criminally investigate or prosecute any alcohol or drug abuse patient.[facility] HospitalIn the event this information is protected by the Federal Confidentiality of Alcohol and Drug Abuse Patient Records regulations: The Federal rules restrict any use of the information to criminally investigate or prosecute any alcohol or drug abuse patient.[facility] HospitalIn the event this information is protected by the Federal Confidentiality of Alcohol and Drug Abuse Patient Records regulations: The Federal rules restrict any use of the information to criminally investigate or prosecute any alcohol or drug abuse patient.[facility] HospitalIn the event this information is protected by the Federal Confidentiality of Alcohol and Drug Abuse Patient Records regulations: The Federal rules restrict any use of the information to criminally investigate or prosecute any alcohol or drug abuse patient.[facility] HospitalIn the event this information is protected by the Federal Confidentiality of Alcohol and Drug Abuse Patient Records regulations: The Federal rules restrict any use of the information to criminally investigate or prosecute any alcohol or drug abuse patient.[facility] HospitalIn the event this information is protected by the Federal Confidentiality of Alcohol and Drug Abuse Patient Records regulations: The Federal rules restrict any use of the information to criminally investigate or prosecute any alcohol or drug abuse patient.[facility] HospitalIn the event this information is protected by the Federal Confidentiality of Alcohol and Drug Abuse Patient Records regulations: The Federal rules restrict any use of the information to criminally investigate or prosecute any alcohol or drug abuse patient.[facility] HospitalIn the event this information is protected by the Federal Confidentiality of Alcohol and Drug Abuse Patient Records regulations: The Federal rules restrict any use of the information to criminally investigate or prosecute any alcohol or drug abuse patient.[facility] HospitalIn the event this information is protected by the Federal Confidentiality of Alcohol and Drug Abuse Patient Records regulations: The Federal rules restrict any use of the information to criminally investigate or prosecute any alcohol or drug abuse patient.[facility] HospitalIn the event this information is protected by the Federal Confidentiality of Alcohol and Drug Abuse Patient Records regulations: The Federal rules restrict any use of the information to criminally investigate or prosecute any alcohol or drug abuse patient.[facility] HospitalIn the event this information is protected by the Federal Confidentiality of Alcohol and Drug Abuse Patient Records regulations: The Federal rules restrict any use of the information to criminally investigate or prosecute any alcohol or drug abuse patient.[facility] HospitalIn the event this information is protected by the Federal Confidentiality of Alcohol and Drug Abuse Patient Records regulations: The Federal rules restrict any use of the information to criminally investigate or prosecute any alcohol or drug abuse patient.[facility] HospitalIn the event this information is protected by the Federal Confidentiality of Alcohol and Drug Abuse Patient Records regulations: The Federal rules restrict any use of the information to criminally investigate or prosecute any alcohol or drug abuse patient.[facility] HospitalIn the event this information is protected by the Federal Confidentiality of Alcohol and Drug Abuse Patient Records regulations: The Federal rules restrict any use of the information to criminally investigate or prosecute any alcohol or drug abuse patient.[facility] HospitalIn the event this information is protected by the Federal Confidentiality of Alcohol and Drug Abuse Patient Records regulations: The Federal rules restrict any use of the information to criminally investigate or prosecute any alcohol or drug abuse patient.[facility] HospitalIn the event this information is protected by the Federal Confidentiality of Alcohol and Drug Abuse Patient Records regulations: The Federal rules restrict any use of the information to criminally investigate or prosecute any alcohol or drug abuse patient.[facility] HospitalIn the event this information is protected by the Federal Confidentiality of Alcohol and Drug Abuse Patient Records regulations: The Federal rules restrict any use of the information to criminally investigate or prosecute any alcohol or drug abuse patient.[facility] HospitalIn the event this information is protected by the Federal Confidentiality of Alcohol and Drug Abuse Patient Records regulations: The Federal rules restrict any use of the information to criminally investigate or prosecute any alcohol or drug abuse patient.[facility] HospitalIn the event this information is protected by the Federal Confidentiality of Alcohol and Drug Abuse Patient Records regulations: The Federal rules restrict any use of the information to criminally investigate or prosecute any alcohol or drug abuse patient.[facility] HospitalIn the event this information is protected by the Federal Confidentiality of Alcohol and Drug Abuse Patient Records regulations: The Federal rules restrict any use of the information to criminally investigate or prosecute any alcohol or drug abuse patient.[facility] HospitalIn the event this information is protected by the Federal Confidentiality of Alcohol and Drug Abuse Patient Records regulations: The Federal rules restrict any use of the information to criminally investigate or prosecute any alcohol or drug abuse patient.[facility] HospitalIn the event this information is protected by the Federal Confidentiality of Alcohol and Drug Abuse Patient Records regulations: The Federal rules restrict any use of the information to criminally investigate or prosecute any alcohol or drug abuse patient.[facility] HospitalIn the event this information is protected by the Federal Confidentiality of Alcohol and Drug Abuse Patient Records regulations: The Federal rules restrict any use of the information to criminally investigate or prosecute any alcohol or drug abuse patient.[facility] HospitalIn the event this information is protected by the Federal Confidentiality of Alcohol and Drug Abuse Patient Records regulations: The Federal rules restrict any use of the information to criminally investigate or prosecute any alcohol or drug abuse patient.[facility] HospitalIn the event this information is protected by the Federal Confidentiality of Alcohol and Drug Abuse Patient Records regulations: The Federal rules restrict any use of the information to criminally investigate or prosecute any alcohol or drug abuse patient.[facility] HospitalIn the event this information is protected by the Federal Confidentiality of Alcohol and Drug Abuse Patient Records regulations: The Federal rules restrict any use of the information to criminally investigate or prosecute any alcohol or drug abuse patient.[facility] HospitalIn the event this information is protected by the Federal Confidentiality of Alcohol and Drug Abuse Patient Records regulations: The Federal rules restrict any use of the information to criminally investigate or prosecute any alcohol or drug abuse patient.[facility] HospitalIn the event this information is protected by the Federal Confidentiality of Alcohol and Drug Abuse Patient Records regulations: The Federal rules restrict any use of the information to criminally investigate or prosecute any alcohol or drug abuse patient.[facility] HospitalIn the event this information is protected by the Federal Confidentiality of Alcohol and Drug Abuse Patient Records regulations: The Federal rules restrict any use of the information to criminally investigate or prosecute any alcohol or drug abuse patient.[facility] HospitalIn the event this information is protected by the Federal Confidentiality of Alcohol and Drug Abuse Patient Records regulations: The Federal rules restrict any use of the information to criminally investigate or prosecute any alcohol or drug abuse patient.[facility] HospitalIn the event this information is protected by the Federal Confidentiality of Alcohol and Drug Abuse Patient Records regulations: The Federal rules restrict any use of the information to criminally investigate or prosecute any alcohol or drug abuse patient.[facility] HospitalIn the event this information is protected by the Federal Confidentiality of Alcohol and Drug Abuse Patient Records regulations: The Federal rules restrict any use of the information to criminally investigate or prosecute any alcohol or drug abuse patient.[facility] HospitalIn the event this information is protected by the Federal Confidentiality of Alcohol and Drug Abuse Patient Records regulations: The Federal rules restrict any use of the information to criminally investigate or prosecute any alcohol or drug abuse patient.[facility] HospitalIn the event this information is protected by the Federal Confidentiality of Alcohol and Drug Abuse Patient Records regulations: The Federal rules restrict any use of the information to criminally investigate or prosecute any alcohol or drug abuse patient.[facility] HospitalIn the event this information is protected by the Federal Confidentiality of Alcohol and Drug Abuse Patient Records regulations: The Federal rules restrict any use of the information to criminally investigate or prosecute any alcohol or drug abuse patient.[facility] HospitalIn the event this information is protected by the Federal Confidentiality of Alcohol and Drug Abuse Patient Records regulations: The Federal rules restrict any use of the information to criminally investigate or prosecute any alcohol or drug abuse patient.[facility] HospitalIn the event this information is protected by the Federal Confidentiality of Alcohol and Drug Abuse Patient Records regulations: The Federal rules restrict any use of the information to criminally investigate or prosecute any alcohol or drug abuse patient.[facility] HospitalIn the event this information is protected by the Federal Confidentiality of Alcohol and Drug Abuse Patient Records regulations: The Federal rules restrict any use of the information to criminally investigate or prosecute any alcohol or drug abuse patient.[facility] HospitalIn the event this information is protected by the Federal Confidentiality of Alcohol and Drug Abuse Patient Records regulations: The Federal rules restrict any use of the information to criminally investigate or prosecute any alcohol or drug abuse patient.[facility] HospitalIn the event this information is protected by the Federal Confidentiality of Alcohol and Drug Abuse Patient Records regulations: The Federal rules restrict any use of the information to criminally investigate or prosecute any alcohol or drug abuse patient.[facility] HospitalIn the event this information is protected by the Federal Confidentiality of Alcohol and Drug Abuse Patient Records regulations: The Federal rules restrict any use of the information to criminally investigate or prosecute any alcohol or drug abuse patient.[facility] HospitalIn the event this information is protected by the Federal Confidentiality of Alcohol and Drug Abuse Patient Records regulations: The Federal rules restrict any use of the information to criminally investigate or prosecute any alcohol or drug abuse patient.[facility] HospitalIn the event this information is protected by the Federal Confidentiality of Alcohol and Drug Abuse Patient Records regulations: The Federal rules restrict any use of the information to criminally investigate or prosecute any alcohol or drug abuse patient.[facility] HospitalIn the event this information is protected by the Federal Confidentiality of Alcohol and Drug Abuse Patient Records regulations: The Federal rules restrict any use of the information to criminally investigate or prosecute any alcohol or drug abuse patient.[facility] HospitalIn the event this information is protected by the Federal Confidentiality of Alcohol and Drug Abuse Patient Records regulations: The Federal rules restrict any use of the information to criminally investigate or prosecute any alcohol or drug abuse patient.[facility] HospitalIn the event this information is protected by the Federal Confidentiality of Alcohol and Drug Abuse Patient Records regulations: The Federal rules restrict any use of the information to criminally investigate or prosecute any alcohol or drug abuse patient.[facility] HospitalIn the event this information is protected by the Federal Confidentiality of Alcohol and Drug Abuse Patient Records regulations: The Federal rules restrict any use of the information to criminally investigate or prosecute any alcohol or drug abuse patient.[facility] HospitalIn the event this information is protected by the Federal Confidentiality of Alcohol and Drug Abuse Patient Records regulations: The Federal rules restrict any use of the information to criminally investigate or prosecute any alcohol or drug abuse patient.[facility] HospitalIn the event this information is protected by the Federal Confidentiality of Alcohol and Drug Abuse Patient Records regulations: The Federal rules restrict any use of the information to criminally investigate or prosecute any alcohol or drug abuse patient.[facility] HospitalIn the event this information is protected by the Federal Confidentiality of Alcohol and Drug Abuse Patient Records regulations: The Federal rules restrict any use of the information to criminally investigate or prosecute any alcohol or drug abuse patient.[facility] Hospital[facility] the event this information is protected by the Federal Confidentiality of Alcohol and Drug Abuse Patient Records regulations: The Federal rules restrict any use of the information to criminally investigate or prosecute any alcohol or drug abuse patient.[facility] the event this information is protected by the Federal Confidentiality of Alcohol and Drug Abuse Patient Records regulations: The Federal rules restrict any use of the information to criminally investigate or prosecute any alcohol or drug abuse patient.[facility]In the event this information is protected by the Federal Confidentiality of Alcohol and Drug Abuse Patient Records regulations: The Federal rules restrict any use of the information to criminally investigate or prosecute any alcohol or drug abuse patient.[facility] HospitalIn the event this information is protected by the Federal Confidentiality of Alcohol and Drug Abuse Patient Records regulations: The Federal rules restrict any use of the information to criminally investigate or prosecute any alcohol or drug abuse patient.[facility] HospitalIn the event this information is protected by the Federal Confidentiality of Alcohol and Drug Abuse Patient Records regulations: The Federal rules restrict any use of the information to criminally investigate or prosecute any alcohol or drug abuse patient.[facility] HospitalIn the event this information is protected by the Federal Confidentiality of Alcohol and Drug Abuse Patient Records regulations: The Federal rules restrict any use of the information to criminally investigate or prosecute any alcohol or drug abuse patient.[facility] HospitalIn the event this information is protected by the Federal Confidentiality of Alcohol and Drug Abuse Patient Records regulations: The Federal rules restrict any use of the information to criminally investigate or prosecute any alcohol or drug abuse patient.[facility] HospitalIn the event this information is protected by the Federal Confidentiality of Alcohol and Drug Abuse Patient Records regulations: The Federal rules restrict any use of the information to criminally investigate or prosecute any alcohol or drug abuse patient.[facility] HospitalIn the event this information is protected by the Federal Confidentiality of Alcohol and Drug Abuse Patient Records regulations: The Federal rules restrict any use of the information to criminally investigate or prosecute any alcohol or drug abuse patient.[facility] HospitalIn the event this information is protected by the Federal Confidentiality of Alcohol and Drug Abuse Patient Records regulations: The Federal rules restrict any use of the information to criminally investigate or prosecute any alcohol or drug abuse patient.[facility] HospitalIn the event this information is protected by the Federal Confidentiality of Alcohol and Drug Abuse Patient Records regulations: The Federal rules restrict any use of the information to criminally investigate or prosecute any alcohol or drug abuse patient.[facility] HospitalIn the event this information is protected by the Federal Confidentiality of Alcohol and Drug Abuse Patient Records regulations: The Federal rules restrict any use of the information to criminally investigate or prosecute any alcohol or drug abuse patient.[facility] HospitalIn the event this information is protected by the Federal Confidentiality of Alcohol and Drug Abuse Patient Records regulations: The Federal rules restrict any use of the information to criminally investigate or prosecute any alcohol or drug abuse patient.[facility] Reason for Visit (unrecogniz ed section and content) Reason Comments Medication Request Reason Comments No Show Specialty Diagnoses / Procedures Referred By Contac t Referred To Contact Pain Management / PAIN MANAGEMENT Diagnoses follow up from injection Procedures OFFICE/OUTPATIENT [facility] [place] 30-39 MIN VIDEO SPEC EST Denice Gr, SARAI.[facility] [address] [place] [address] Denice Gr, SARAI.[facility] [address] [place] [address] Referral ID Status Reason Start Date Expiration Date Visits Re quested Visits Authorized [id number] Closed 06/20/2021 06/19/2022 1 1 Reason Comments [...] C (HCC) Procedures CONSULT TO HEPATOLOGY OFFICE/OUTPATIENT [facility] 60-74 MINUTES Jaimee Palomares PA-C [address] [place] [address] Referral ID Status Reason Start Date Expiration Date V isits Requested Visits Authorized [id number] Closed PCP Requested Referral 11/16/2021 11/16/2022 1 [...] urgency Procedures CONSULT TO UROLOGY OFFICE/OUTPATIENT NEW HIGH MDM 60-74 MINUTES Denice Gr, SARAI.[employer] [address] [place] [address] Referral ID Status Reason Start Date Expiration Date V isits Requested Visits Authorized [id number] Closed PCP Requested Referral 12/09/2021 12/09/2022 1 [...] Refill Request 02/26/2022 Reason Comments ED Follow-up [facility] 02/24/22 Hypotenti on Reason Onset Date Comments [...] remission Procedures CONSULT TO NEUROLOGY OFFICE/OUTPATIENT NEW [facility] MDM 60-74 MINUTES Jaimee Palomares PA-C [address] [place] [address] Referral ID Status Reason Start Date Expiration Date V isits Requested Visits Authorized [id number] Closed PCP Requested Referral 02/25/2022 02/25/2023 1 1 Reason Comments Results Reason Comments Hospital Follow Up [facility] D/C 05/06/22 Syn cope, Hypotension Reason [...] Procedures CONSULT TO PHYSICAL THERAPY Shira Kam, ELECTRONICS DETAIL DRAFTSPERSON.[employer] [address] [place] [address] [facility] [address] [place] [address] Referral ID Status Reason Start Date Expiration Date Visits Re quested Visits Authorized [id number] Closed 06/16/2022 06/19/2022 1 1 Reason Onset [...] 60-74 MINUTES Jenifer Yeager APRN.CN [address] [place] [address] Referral ID Status Reason Start Date Expiration Date V isits Requested Visits Authorized [id number] Closed PCP Requested Referral 10/20/2022 10/20/2023 1 1 Reason Comments PT Eval Specialty Diagnoses / Procedures Referred By Contac t Referred To Contact PHYSICAL THERAPY Diagnoses Primary osteoarthritis of right hip Lumbar radiculopathy Procedures CONSULT TO PHYSICAL THERAPY Ibeth Albert PA-C [address] [place] [address] [place] [address] Referral ID Status Reason Start Date Expiration Date V isits Requested Visits Authorized [id number] Authorized 02/09/2023 06/10/2023 20 20 Reason Onset Date Comments Refill Request 02/28/2023 Reason Comments Physical Therapy Specialty Diagnoses / Procedures Referred By Contac t Referred To Contact PHYSICAL THERAPY Diagnoses Primary osteoarthritis of right hip Lumbar radiculopathy Procedures CONSULT TO PHYSICAL THERAPY Ibeth Albert PA-C [address] [place] [address] [place] [address] Reason Comments Radiology US Specialty Diagnoses / Procedures Referred By Contac t Referred To Contact BR IMAGING Diagnoses Breast pain Procedures US BREAST LTD RT US BREAST UNI REAL TIME WITH IMAGE LIMITED Memo Huber MD [address] [place] [address] [facility] [address] [place] [address] Referral ID Status Reason Start Date Expiration Date V isits Requested Visits Authorized [id number] Closed Auto-Generate d Referral 07/29/2022 08/28/2023 1 1 Specialty Diagnoses / Procedures Referred By Contac t Referred To Contact MR IMAGING Diagnoses Transient cerebral ischemia, unspecified type Balance problem Falls frequently Procedures MRI BRAIN WO IVCON MRI BRAIN BRAIN STEM W/O CONTRAST MATERIAL Urvashi Hughes, ELECTRONICS DETAIL DRAFTSPERSON.[employer] [address] [place] [address] [place] [address] Referral ID Status Reason Start Date Expiration Date V isits Requested Visits Authorized [id number] Closed Auto-Generate d Referral 01/12/2023 03/13/2023 1 1 Reason Comments ER F/U Numbness and tinglin g in Bilateral hands Reason Comments [facility] nursing POC Reason Comments OT plan of care Reason Comments Order for tub transfer bench Reason Comments Pain, Back Reason Onset Date Comments Refill Request 08/04/2023 Reason Comments Patient Update Reason Comments [facility] Call Reason Comments Follow Up 2 week Care Teams (unrecognized sec tion and content) Community Relations Assistant Relationship Specialty Start Date End Date Jaimee Palomares PA-C [address] [place], [place] [address] PCP - General Family Practice 09/09/16 Community Relations Assistant Relationship Specialty Start Date End Date Jaimee Palomares PA-C [address] [place], [place] [id number] PCP - General Family Practice 09/09/16 Community Relations Assistant Relationship Specialty Start Date End Date Jaimee Palomares PA-C [address] [place], [place] [address] PCP - General Family Practice 09/09/16 Community Relations Assistant Relationship Specialty Start Date End Date Jaimee Palomares PA-C [address] [place] [address] PCP - General Family Practice 09/09/16 Community Relations Assistant Relationship Specialty Start Date End Date Jaimee Palomares PA-C [address] [place] [address] PCP - General Family Practice 09/09/16 Community Relations Assistant Relationship Specialty Start Date End Date Jaimee Palomares PA-C [address] [place] [address] PCP - General Family Practice 09/09/16 Community Relations Assistant Relationship Specialty Start Date End Date Jaimee Palomares PA-C [address] [place] [address] PCP - General Family Practice 09/09/16 Community Relations Assistant Relationship Specialty Start Date End Date Jaimee Palomares PA-C [address] [place] [address] PCP - General Family Practice 09/09/16 Community Relations Assistant Relationship Specialty Start Date End Date Jaimee Palomares PA-C [address] [place] [address] PCP - General Family Practice 09/09/16 Community Relations Assistant Relationship Specialty Start Date End Date Jaimee Palomares PA-C [address] [place] [address] PCP - General Family Practice 09/09/16 Community Relations Assistant Relationship Specialty Start Date End Date Jaimee Palomares PA-C [address] [place] [address] PCP - General Family Practice 09/09/16 Community Relations Assistant Relationship Specialty Start Date End Date Jaimee Palomares PA-C [address] [place] [address] PCP - General Family Practice 09/09/16 Community Relations Assistant Relationship Specialty Start Date End Date Jaimee Palomares PA-C [address] [place] [address] PCP - General Family Practice 09/09/16 Community Relations Assistant Relationship Specialty Start Date End Date Jaimee Palomares PA-C [address] [place] [address] PCP - General Family Practice 09/09/16 Community Relations Assistant Relationship Specialty Start Date End Date Jaimee Palomares PA-C [address] [place] [address] PCP - General Family Practice 09/09/16 Community Relations Assistant Relationship Specialty Start Date End Date Jaimee Palomares PA-C [address] [place] [address] PCP - General Family Practice 09/09/16 Community Relations Assistant Relationship Specialty Start Date End Date Jaimee Palomares PA-C [address] [place] [address] PCP - General Family Practice 09/09/16 Community Relations Assistant Relationship Specialty Start Date End Date Jaimee Palomares PA-C [address] [place] [address] PCP - General Family Practice 09/09/16 Community Relations Assistant Relationship Specialty Start Date End Date Jaimee Palomares PA-C [address] [place] [address] PCP - General Family Practice 09/09/16 Community Relations Assistant Relationship Specialty Start Date End Date Jaimee Palomares PA-C [address] [place] [address] PCP - General Family Practice 09/09/16 Community Relations Assistant Relationship Specialty Start Date End Date Jaimee Palomares PA-C [address] [place] [address] PCP - General Family Practice 09/09/16 Community Relations Assistant Relationship Specialty Start Date End Date Jaimee Palomares PA-C [address] [place] [address] PCP - General Family Practice 09/09/16 Community Relations Assistant Relationship Specialty Start Date End Date Jaimee Palomares PA-C [address] [place] [address] PCP - General Family Practice 09/09/16 Community Relations Assistant Relationship Specialty Start Date End Date Jaimee Palomares PA-C [address] [place] [address] PCP - General Family Practice 09/09/16 Community Relations Assistant Relationship Specialty Start Date End Date Jaimee Palomares PA-C [address] [place] [address] PCP - General Family Practice 09/09/16 Community Relations Assistant Relationship Specialty Start Date End Date Jaimee Palomares PA-C [address] [place] [address] PCP - General Family Practice 09/09/16 Community Relations Assistant Relationship Specialty Start Date End Date Jaimee Palomares PA-C [address] [place] [address] PCP - General Family Practice 09/09/16 Community Relations Assistant Relationship Specialty Start Date End Date Jaimee Palomares PA-C [address] [place] [address] PCP - General Family Practice 09/09/16 Community Relations Assistant Relationship Specialty Start Date End Date Jaimee Palomares PA-C [address] [place] [address] PCP - General Family Practice 09/09/16 Community Relations Assistant Relationship Specialty Start Date End Date Jaimee Palomares PA-C [address] [place] [address] PCP - General Family Practice 09/09/16 Community Relations Assistant Relationship Specialty Start Date End Date Jaimee Palomares PA-C [address] [place] [address] PCP - General Family Practice 09/09/16 Community Relations Assistant Relationship Specialty Start Date End Date Jaimee Palomares PA-C [address] [place] [address] PCP - General Family Practice 09/09/16 Community Relations Assistant Relationship Specialty Start Date End Date Jaimee Palomares PA-C [address] [place] [address] PCP - General Family Practice 09/09/16 Community Relations Assistant Relationship Specialty Start Date End Date Jaimee Palomares PA-C [address] [place] [address] PCP - General Family Practice 09/09/16 Community Relations Assistant Relationship Specialty Start Date End Date Jaimee Palomares PA-C [address] [place] [address] PCP - General Family Practice 09/09/16 Community Relations Assistant Relationship Specialty Start Date End Date Jaimee Palomares PA-C [address] [place] [address] PCP - General Family Medicine 09/09/16 Community Relations Assistant Relationship Specialty Start Date End Date Jaimee Palomares PA-C [address] [place] [address] PCP - General Family Medicine 09/09/16 Community Relations Assistant Relationship Specialty Start Date End Date Jaimee Palomares PA-C [address] [place] [address] PCP - General Family Medicine 09/09/16 Community Relations Assistant Relationship Specialty Start Date End Date Jaimee Palomares PA-C [address] [place] [address] PCP - General Family Medicine 09/09/16 Community Relations Assistant Relationship Specialty Start Date End Date Jaimee Palomares PA-C [address] [place] [address] PCP - General Family Medicine 09/09/16 Community Relations Assistant Relationship Specialty Start Date End Date Jaimee Palomares PA-C [address] [place] [address] PCP - General Family Medicine 09/09/16 Community Relations Assistant Relationship Specialty Start Date End Date Jaimee Palomares PA-C [address] [place] [address] PCP - General Family Medicine 09/09/16 Community Relations Assistant Relationship Specialty Start Date End Date Jaimee Palomares PA-C [address] [place] [address] PCP - General Family Medicine 09/09/16 Community Relations Assistant Relationship Specialty Start Date End Date Jaimee Palomares PA-C [address] [place] [address] PCP - General Family Medicine 09/09/16 Community Relations Assistant Relationship Specialty Start Date End Date Jaimee Palomares PA-C [address] [place] [address] PCP - General Family Medicine 09/09/16 Community Relations Assistant Relationship Specialty Start Date End Date Jaimee Palomares PA-C [address] [place] [address] PCP - General Family Medicine 09/09/16 Community Relations Assistant Relationship Specialty Start Date End Date Jaimee Palomares PA-C [address] [place] [address] PCP - General Family Medicine 09/09/16 Community Relations Assistant Relationship Specialty Start Date End Date Jaimee Palomares PA-C [address] [place] [address] PCP - General Family Medicine 09/09/16 Community Relations Assistant Relationship Specialty Start Date End Date Jaimee Palomares PA-C [address] [place] [address] PCP - General Family Medicine 09/09/16 Community Relations Assistant Relationship Specialty Start Date End Date Jaimee Palomares PA-C [address] [place] [address] PCP - General Family Medicine 09/09/16 Community Relations Assistant Relationship Specialty Start Date End Date Jaimee Palomares PA-C [address] [place] [address] PCP - General Family Medicine 09/09/16 Community Relations Assistant Relationship Specialty Start Date End Date Jaimee Palomares PA-C [address] [place] [address] PCP - General Family Medicine 09/09/16 Community Relations Assistant Relationship Specialty Start Date End Date Jaimee Palomares PA-C [address] [place] [address] PCP - General Family Medicine 09/09/16 Community Relations Assistant Relationship Specialty Start Date End Date Jaimee Palomares PA-C [address] [place] [address] PCP - General Family Medicine 09/09/16 Community Relations Assistant Relationship Specialty Start Date End Date Jaimee Palomares PA-C [address] [place] [address] PCP - General Family Medicine 09/09/16 Community Relations Assistant Relationship Specialty Start Date End Date Jiamee Palomares PA-C [address] [place] [address] PCP - General Family Medicine 09/09/16 Community Relations Assistant Relationship Specialty Start Date End Date Jaimee Palomares PA-C [address] [place] [address] PCP - General Family Medicine 09/09/16 Community Relations Assistant Relationship Specialty Start Date End Date Jaimee Palomares PA-C [address] [place] [address] PCP - General Family Medicine 09/09/16 Community Relations Assistant Relationship Specialty Start Date End Date Jaimee Palomares PA-C [address] [place] [address] PCP - General Family Medicine 09/09/16 Community Relations Assistant Relationship Specialty Start Date End Date Jaimee Palomares PA-C [address] [place] [address] PCP - General Family Medicine 09/09/16 Community Relations Assistant Relationship Specialty Start Date End Date Jaimee Palomares PA-C [address] [place] [address] PCP - General Family Medicine 09/09/16 Community Relations Assistant Relationship Specialty Start Date End Date Jaimee Palomares PA-C [address] [place] [address] PCP - General Family Medicine 09/09/16 Community Relations Assistant Relationship Specialty Start Date End Date Jaimee Palomares PA-C [address] [place] [address] PCP - General Family Medicine 09/09/16 Community Relations Assistant Relationship Specialty Start Date End Date Jaimee Palomares PA-C [address] [place] [address] PCP - General Family Medicine 09/09/16 Community Relations Assistant Relationship Specialty Start Date End Date Jaimee Palomares PA-C [address] [place] [address] PCP - General Family Medicine 09/09/16 Community Relations Assistant Relationship Specialty Start Date End Date Jaimee Palomares PA-C [address] [place] [address] PCP - General Family Medicine 09/09/16 Community Relations Assistant Relationship Specialty Start Date End Date Jaimee Palomares PA-C [address] [place] [address] PCP - General Family Medicine 09/09/16 Community Relations Assistant Relationship Specialty Start Date End Date Jaimee Palomares PA-C [address] [place] [address] PCP - General Family Medicine 09/09/16 Community Relations Assistant Relationship Specialty Start Date End Date Jaimee Palomares PA-C [address] [place] [address] PCP - General Family Medicine 09/09/16 Community Relations Assistant Relationship Specialty Start Date End Date Jaimee Palomares PA-C [address] [place] [address] PCP - General Family Medicine 09/09/16 Community Relations Assistant Relationship Specialty Start Date End Date Jaimee Palomares PA-C [address] [place] [address] PCP - General Family Medicine 09/09/16 Community Relations Assistant Relationship Specialty Start Date End Date Jaimee Palomares PA-C [address] [place] [address] PCP - General Family Medicine 09/09/16 Community Relations Assistant Relationship Specialty Start Date End Date Jaimee Palomares PA-C [address] [place] [address] PCP - General Family Medicine 09/09/16 Community Relations Assistant Relationship Specialty Start Date End Date Jaimee Palomares PA-C [address] [place] [address] PCP - General Family Medicine 09/09/16 Community Relations Assistant Relationship Specialty Start Date End Date Jaimee Palomares PA-C [address] [place] [address] PCP - General Family Medicine 09/09/16 Community Relations Assistant Relationship Specialty Start Date End Date Jaimee Palomares PA-C [address] [place] [address] PCP - General Family Medicine 09/09/16 Community Relations Assistant Relationship Specialty Start Date End Date Jaimee Palomares PA-C [address] [place] [address] PCP - General Family Medicine 09/09/16 Community Relations Assistant Relationship Specialty Start Date End Date Jaimee Palomares PA-C [address] [place] [address] PCP - General [facility] 09/09/16 Community Relations Assistant Relationship Specialty Start Date End Date Jamiee Palomares PA-C [address] [place] [address] PCP - General [facility] 09/09/16 Community Relations Assistant Relationship Specialty Start Date End Date Jaimee Palomares PA-C [address] [place] [address] PCP - [facility] 09/09/16 Community Relations Assistant Relationship Specialty Start Date End Date Jaimee Palomares PA-C [address] [place], [place] [address] PCP - [facility] 09/09/16 Community Relations Assistant Relationship Specialty Start Date End Date Jaimee Palomares PA-C [address] [place], [place] [address] PCP - General [facility] 09/09/16 PRN Active and Recently Administ ered [...] BE BASED ON THE PRIMARY CLINICAL RECORDS. [employer] provides no warranty or guarantee of the accuracy or completeness of information in this document.
[2023-08-12] MEDS: Acetaminophen 325 MG Tablet 650 MG PO (23:38)
[2023-08-12] MEDS: Atorvastatin Calcium 40 MG Tablet PO (23:38)
[2023-08-12] MEDS: oxyCODONE 5 MG Tablet PO (23:38)
[2023-08-12] MEDS: traZODone 100 MG Tablet 150 MG PO (23:39)
[2023-08-12] MEDS: Pregabalin 75 MG Capsule 150 MG PO (23:39)
[2023-08-12] MEDS: Ketorolac 15 MG/ML Vial IV (23:40)
[2023-08-12] MEDS: 0.9% Normal Saline (1000mL) 1,000 ML 100 ML IV (23:40)
[2023-08-13] VITALS (9 sets, daily range): BP systolic 110–120; BP diastolic 72–76; PULSE 75–84; RESP 16–18; TEMP 36.4–37.1; O2SAT 91–98; BMI 31.8
--- NOTE | 2023-08-13 01:25 | CPS ---
Patient does not wear CPAP/Bipap at home. Does not want our equipment. Wears 2LNC HS at home.
[2023-08-13] MEDS: Baclofen 10 MG Tablet 5 MG PO ×3 (05:44→22:59)
[2023-08-13] MEDS: Levothyroxine 25 MCG TABLET PO (06:20)
[2023-08-13] MEDS: Ketorolac 15 MG/ML Vial IV ×3 (06:20→22:59)
[2023-08-13] MEDS: Pregabalin 75 MG Capsule 150 MG PO ×3 (06:25→22:59)
[2023-08-13] MEDS: oxyCODONE 5 MG Tablet PO ×3 (06:34→19:25)
[2023-08-13 06:46] LABS: Absolute Neutrophil Count 7.4 X10^3/uL (2.0-7.7); Basophil# 0.01 X10^3/uL; Basophil% 0.1 % (0-1); Hematocrit 36.7 % (37-47); Hemoglobin 11.8 g/dL (12.0-15.0); Lymphocyte % 7.3 % (19-41); Mean Corp Hgb Conc 32.2 g/dL (32-36); Mean Corpuscular Hgb 29.4 pg (27.0-32.0); Mean Corpuscular Volume 91.5 fL (81-99); Mean Platelet Vol. 11.6 fl (6.2-12.0); Monocyte% 1.2 % (0-10); NRBC Flagged by Analyzer 0 % (0-5); Neutrophil # 7.44 X10^3/uL (2.7-7.7); Neutrophil % 90.9 % (47-70); POSITIVE DIFFERENTIAL YES; Platelet Count 257 K/mm3 (150-450); RBC Distribution Width CV 13.6 % (11.6-14.6); RBC Distribution Width SD 45.8 fl (35.1-43.9); Red Blood Count 4.01 M/mm3 (4.2-5.4); White Blood Count 8.2 K/mm3 (4.4-11.0)
[2023-08-13 07:03] LABS: ALB/GLOB Ratio 0.8 RATIO (0.9-2.4); AST(SGOT) 26 U/L (15-37); Alanine Aminotransfer ALT/SGPT 32 U/L (13-56); Alkaline Phosphatase 68 U/L (45-117); Anion Gap 4 (5-15); BUN 19 mg/dL (7-18); BUN/Creat Ratio 27.3 RATIO (10-20); Calcium,Total 8.8 mg/dL (8.5-10.1); Chloride 108 mmol/L (98-107); EST Glomerular Filtration Rate 93 mL/min (>60); Est Glom Filt Rate - Afr Amer 113 mL/min (>60); Estimated Creatinine Clearance 102.61 ml/min; Globulin 3.7 g/dL (2.2-4.2); Glucose 189 mg/dL (74-106); Potassium 3.9 mmol/L (3.5-5.1); Protein, Total 6.7 g/dL (6.4-8.2); Sodium Level 138 mmol/L (136-145)
[2023-08-13] MEDS: Budesonide Respules 0.5 MG/2 ML AMPUL.NEB. INHALATION ×2 (07:10→19:59)
[2023-08-13] MEDS: Lidocaine 5% Patch 2 PATCH TOPICAL (07:57)
[2023-08-13] MEDS: Metoprolol(XL)Succ 50 MG Tablet PO (07:57)
[2023-08-13] MEDS: buPROPion (SR) 150 MG Tablet.SA 300 MG PO (07:58)
[2023-08-13] MEDS: Tolterodine Tartrate 2 MG CAP.SA PO (07:58)
[2023-08-13] MEDS: OLANZapine 10 MG Tablet PO (07:58)
[2023-08-13] MEDS: amLODIPine 10 MG Tablet PO (07:59)
[2023-08-13] MEDS: Enoxaparin 40 MG/0.4 ML Syringe SC (07:59)
[2023-08-13] MEDS: Pantoprazole Sodium 20 MG Tablet PO (07:59)
[2023-08-13] MEDS: Ferrous Sulfate 325 MG Tablet PO ×2 (07:59→17:10)
[2023-08-13] MEDS: Vibegron 75 MG TABLET PO (08:00)
[2023-08-13] MEDS: Influenza Virus Vac Quad 23-24 60 MCG/0.5 ML SYRINGE IM (08:02)
--- NOTE | 2023-08-13 12:00 | CASEMGMT ---
RN SAUL assessment: RN CM to room to meet with patient for initial transition planning/care coordination assessment.? Introduced self and role at [facility]. Patient sitting up in chair in room, alert and oriented. Patient willing to participate in assessment and is able to answer all questions appropriately.?Care providers, pharmacy, and demographics verified/updated at this time. PCP: Dr. Chairez Specialists: Dr Skinner-xander. Pt was seeing Dr. Staley for Pain Management but was referred to another pain mgnt doctor. Dr. Beard and Renata Chiu at [facility]. Preferred Pharmacy: Pt uses [facility]. Pt would like to get any new meds @ d/c from [facility] Retail pharmacy. Insurance: [employer] Living Will/HPOA: Denies having this in place. Has no biological children. Pt made aware AD can be completed w/SW. She states she is interested in this and will think about it. Aware to ask for SW if she decides to complete this and that she can f/u as an OP w/SW as well. She voices understanding. LNOK: Has 5 biological siblings. 2 of her sisters live in [place] and [place] Living Arrangements: Lives alone in a [facility] subsidized apartment, which is ground-level. Her son and son's fiance are currently staying w/her. Fiance assists pt w/bathing/dressing. Son assists w/home mgnt. They get the groceries. Pt states she is able to toilet herself. Transportation: [facility]. Son will take her home @ discharge. DME: Patient reports to have a 2 rollators, cane, grab bars in the bathroom, shower chair; home O2 through [employer] that pt states she wears @ 2l/m @ HS only, neck collar (states Dr Skinner told her yesterday she can start weaning the use of this), nebulizer. HHC/SNF: Hx of [facility] and [facility]. Has had [facility] in the past and she also just had HHC after discharging from [facility] but she does not remember the name of agency. This agency just d/c'd her yesterday from their services. Discussed d/c plan. Pt wishes to discharge home and denies wanting HHC again for therapy @ this time. She states she is getting around better now and just ambulated around the hallway on [address]. She states she feels therapy sometimes aggravates her pain more than helps. She was made aware she can discuss HHC w/her PCP once she returns home, if she changes her mind. Also made aware, if still @ [facility] on Tuesday, to ask for CM if she decides she does want HHC. She voices understanding. Pt states she would like assistance in her home w/home tasks and w/bathing and grooming. Krystal ARMIJO, aware and to provide resources. Pt wishes to return home and states has no concerns with going home at time of discharge.. ?CM?to follow for any further discharge planning/needs.? Pt voices no further concerns/needs at this time.? Advised pt to ask for?CM?if any further questions/concerns/needs arise.? Voices understanding. PLAN:??Home w/family support and discharge plans in place. Hoa DUNCANN?RN?CM
[2023-08-13] MEDS: Senna/Docusate Sodium 1 Tablet 2 TABLET PO (12:27)
[2023-08-13] MEDS: Acetaminophen 325 MG Tablet 650 MG PO ×2 (12:27→19:24)
[2023-08-13] MEDS: MethylPREDNISolone DosePak 4 MG BOX PO ×2 (12:28→17:10)
--- NOTE | 2023-08-13 13:03 | PN.HOSP_ITS ---
Reason for Visit Reason for Visit: Diagnoses Dorsalgia, unspecified (08/12/23) Subjective Subjective No acute events overnight. Patient seen at bedside this morning, sitting up in bedside chair, no acute distress. Patient states she was able to put weight on her left leg this morning without issue, which is significantly improved from yesterday. Has been tolerating the steroids and IV Toradol well. Has taken 2 doses of oxycodone with mild to moderate relief of pain. Denies any other acute concerns morning. Objective Data Objective Data Vital Signs: Vital Signs Temp Pulse Resp BP Pulse Ox O2 Del Method O2 Flow Rate 97.8 F 75 18 111/75 91 Room Air 2 08/13/23 07:46 08/13/23 07:57 08/13/23 07:46 08/13/23 07:46 08/13/23 07:46 08/13/23 07:46 08/13/23 04:49 Oxygen Flow Rate (L/min) 2 Oxygen Delivery Method Room Air Weight: 90 kg Body Mass Index (BMI) 31.8 Intake & Output: Intake and Output for Last 24 Hours 08/11/23 08/12/23 08/13/23 23:59 23:59 23:59 Intake Total 2038.33 / 2038.33 Output Total 900 / 900 Balance 1138.33 / 1138.33 Lab / Micro Data 08/13/23 05:17 08/13/23 05:17 Labs: Laboratory Results - last 24 hr 08/12/23 17:57: WBC 8.0, RBC 4.75, Hgb 14.0, Hct 43.0, MCV 90.5, MCH 29.5, MCHC 32.6, RDW Std Deviation 45.6 H, RDW Coeff of Sandeep 13.6, Plt Count 254, MPV 11.8, Immature Gran % (Auto) 0.600, Neut % (Auto) 61.3, Lymph % (Auto) 24.6, [place] % (Auto) 8.8, Eos % (Auto) 3.9, Baso % (Auto) 0.8, Absolute Neuts (auto) 4.9, Absolute Lymphs (auto) 1.96, Nucleated RBC % 0, Sodium 137, Potassium 3.5, Chloride 104, Carbon Dioxide 28.0, Anion Gap 5, BUN 15, Creatinine 0.68, Estim Creat Clear Calc 105.63, Est GFR (MDRD) Af Amer 116, Est GFR (MDRD) Non-Af 96, BUN/Creatinine Ratio 22.1 H, Glucose 93, Calcium 9.3 08/13/23 05:17: WBC 8.2, RBC 4.01 L, Hgb 11.8 L, Hct 36.7 L, MCV 91.5, MCH 29.4, MCHC 32.2, RDW Std Deviation 45.8 H, RDW Coeff of Sandeep 13.6, Plt Count 257, MPV 11.6, Immature Gran % (Auto) 0.500, Neut % (Auto) 90.9 H, Lymph % (Auto) 7.3 L, [place] % (Auto) 1.2, Eos % (Auto) 0.0, Baso % (Auto) 0.1, Absolute Neuts (auto) 7.4, Absolute Lymphs (auto) 0.60 L, Nucleated RBC % 0, Sodium 138, Potassium 3.9, Chloride 108 H, Carbon Dioxide 26.0, Anion Gap 4 L, BUN 19 H, Creatinine 0.70, Estim Creat Clear Calc 102.61, Est GFR (MDRD) Af Amer 113, Est GFR (MDRD) Non-Af 93, BUN/Creatinine Ratio 27.3 H, Glucose 189 H, Calcium 8.8, Total Bilirubin 0.20, AST 26, ALT 32, Alkaline Phosphatase 68, Total Protein 6.7, Albumin 3.0 L, Globulin 3.7, Albumin/Globulin Ratio 0.8 L Radiography Diagnostic Testing: Radiology Impression Lumbar Spine CT 08/12/23 19:39 IMPRESSION: Mild levoscoliosis with degenerative disc disease as described above. Electronically Signed: Km Esquivel MD at 21:00 EST , Physical Exam Const alert, oriented x3 and no apparent distress Constitutional Narrative: Obese. General Appearance: cooperative and comfortable HEENT normocephalic, head/scalp atraumatic, hearing grossly normal bilaterally and nasal mucous membranes and turbinates normal Eyes PERRL, EOMs intact bilaterally and conjunctivae normal Neck full ROM, no lymphadenopathy and supple Lymph Lymphatic: no lymphadenopathy noted Chest inspection of chest normal Resp normal respiratory effort, normal air movement, no use of accessory muscles and clear to auscultation bilaterally Cardio regular rate, regular rhythm, no murmurs and peripheral pulses 2+ throughout GI normal to inspection, nondistended, normoactive bowel sounds, soft to palpation, non-tender and non-distended Back/Spine Back/Spine Narrative: Mildly decreased range of motion in low back, no tenderness to palpation. Extremity normal to inspection and no pedal edema Skin no rashes or lesions noted Neuro no focal motor deficits and no sensory deficits noted Speech: speech normal Psych mental status grossly normal Assessment & Plan Assessment/Plan (1) Difficulty in walking: (2) Intractable back pain: PLAN: Plan Patient is a 53-year-old female who presented [facility] ED on 08/12/2023 with worsening low back pain and difficulty with ambulation. 1. Intractable low back pain with acute difficulty with ambulation, improving; history of low back pain with radiculopathy ? Follows with Dr. Skinner with Orthopedics, had recent C-spine procedure 6 weeks ago. Had follow-up appointment in the office on 08/12, patient noted worsening low back pain with left leg radiculopathy and difficulty with ambulation since 08/10, came to ED for further evaluation. Lumbar spine CT showed no acute changes. Suspect mild worsening of chronic low back pain. Has had good improvement in symptoms with p.o. steroids and IV Toradol as needed started on admission, will continue these medications. Continue oxycodone as needed for pain and IV morphine as needed for breakthrough pain. PT/OT/case management following, hoping for home with home health care on discharge. Patient has pain management appointment on Wednesday 08/16, hopeful to discharge patient home prior to Tuesday. 2. Recent history of cervical spine procedure ? S/p C3-5 posterior cervical instrumented fusion on 06/27/23. Per Dr. Skinner, patient has had some improvement in neck pain but unfortunately has not had good improvement of her strength in the upper extremities. Went to SNF for time on discharge and just completed physical therapy with home health care on day prior to admission. Planning to establish with pain management on 08/16 per orthopedic recs. Chronic medical conditions: ? Hypertension, hyperlipidemia: Continue home amlodipine, statin. ? Anxiety and depression, bipolar disorder, PTSD: Stable. Continue home medications. ? Tobacco use: Encouraged cessation, nicotine placement therapy as needed. ? Hypothyroidism: Continue home Synthroid. ? Obesity: BMI 31 on admit. Complicates hospital course, care prognosis. ? GERD: Continue home PPI. ? SANA: Continue CPAP nightly. DVT prophylaxis: Lovenox CODE STATUS: Full code, verified Expected disposition: Home with home health care, 1 to 2 days. Patient notably was admitted under observation status; she is still requiring IV pain medications on hospital day 2 for intractable back pain, will require longer hospitalization than anticipated. Changed to inpatient status on 08/13. Total clinical time spent by myself addressing the patient's medical issues, reviewing all the data, and collaborating with patient's care team: 35 minutes. Charges/Coding Visit Charges Inpatient E&M: 63764 Subs Hosp L2
[2023-08-13] MEDS: 0.9% Saline Lock 10 ML Syringe IV ×2 (14:53→23:01)
--- NOTE | 2023-08-13 15:28 | CASEMGMT ---
Social Work SW met w/pt, she is agreeable to a waiver application. ALEKSANDER completed the Waiver form and mailed it to S for pt. SHAN Ro
[2023-08-13] MEDS: traZODone 100 MG Tablet 150 MG PO (22:59)
[2023-08-13] MEDS: Atorvastatin Calcium 40 MG Tablet PO (22:59)
[2023-08-14 04:24] VITALS: BMI 32.0
[2023-08-14] MEDS: Levothyroxine 25 MCG TABLET PO (05:42)
[2023-08-14] MEDS: Baclofen 10 MG Tablet 5 MG PO (05:43)
[2023-08-14] MEDS: Ketorolac 15 MG/ML Vial IV (05:43)
[2023-08-14] MEDS: Pregabalin 75 MG Capsule 150 MG PO (05:46)
[2023-08-14] MEDS: 0.9% Saline Lock 10 ML Syringe IV (05:46)
[2023-08-14 05:53] VITALS: BP 123/79; PULSE 60; RESP 16; RESP 18; TEMP 36.6; O2SAT 94
[2023-08-14 07:24] VITALS: PULSE 86; RESP 16
[2023-08-14] MEDS: Budesonide Respules 0.5 MG/2 ML AMPUL.NEB. INHALATION (07:26)
[2023-08-14 07:41] VITALS: BP 118/74; PULSE 72; RESP 18; TEMP 36.6; O2SAT 95
[2023-08-14 09:13] VITALS: PULSE 72
[2023-08-14] MEDS: Tolterodine Tartrate 2 MG CAP.SA PO (09:13)
[2023-08-14] MEDS: Metoprolol(XL)Succ 50 MG Tablet PO (09:13)
[2023-08-14] MEDS: Acetaminophen 325 MG Tablet 650 MG PO (09:13)
[2023-08-14] MEDS: Ferrous Sulfate 325 MG Tablet PO (09:13)
[2023-08-14] MEDS: amLODIPine 10 MG Tablet PO (09:13)
[2023-08-14] MEDS: Senna/Docusate Sodium 1 Tablet 2 TABLET PO (09:13)
[2023-08-14] MEDS: Pantoprazole Sodium 20 MG Tablet PO (09:13)
[2023-08-14] MEDS: Lidocaine 5% Patch 2 PATCH TOPICAL (09:14)
[2023-08-14] MEDS: buPROPion (SR) 150 MG Tablet.SA 300 MG PO (09:14)
[2023-08-14] MEDS: Enoxaparin 40 MG/0.4 ML Syringe SC (09:14)
[2023-08-14] MEDS: oxyCODONE 5 MG Tablet PO (09:14)
[2023-08-14] MEDS: OLANZapine 10 MG Tablet PO (09:15)
[2023-08-14] MEDS: Vibegron 75 MG TABLET PO (09:15)
[2023-08-14] MEDS: MethylPREDNISolone DosePak 4 MG BOX PO (11:51)
--- NOTE | 2023-08-14 11:58 | DCINST_ITS ---
Discharge Instructions Diet Discharge Diet: No restrictions Activity Discharge Activity: No Restrictions Weight Bearing Status: Full weight bearing Follow Up Care Test Results: Test results from this visit will be discussed in further detail at your follow- up appointment, if applicable. Discharge Plan Admission Admit Date/Time: 08/12/23 21:32 Primary Reason for Your Visit: low back pain w/ radiculopathy Attending Provider: Adolfo Harris Primary Care Provider: Memo Chairez Consulting Providers: Kelly Vidales Discharge Orders/Prescriptions Prescriptions: New oxycodone 5 mg Tablet 5 mg PO Q6H PRN PRN (Reason: Pain Score 4-10) 3 Days Qty: 6 0RF methylprednisolone [Medrol (Justen)] 4 mg tablets,dose pack 4 mg PO QODAY Qty: 21 0RF Continued omeprazole 20 mg capsule,delayed release(DR/EC) 20 mg PO DAILY cyanocobalamin (vitamin B-12) [Vitamin B-12] 1,000 mcg tablet 1,000 mcg PO DAILY Myrbetriq 25 mg tablet extended release 24 hr 25 mg PO DAILY trazodone 150 mg tablet 150 mg PO QHS olanzapine 10 mg tablet 10 mg PO DAILY oxybutynin chloride 10 mg tablet extended release 24hr 10 mg PO DAILY bupropion HCl [Wellbutrin SR] 150 mg Tablet Sustained-Release 12 Hr 300 mg PO DAILY levothyroxine 25 mcg Tablet 25 mcg PO DAILY Spiriva Respimat 2.5 mcg/actuation Mist 2 puff INHALATION DAILY atorvastatin 40 mg tablet 40 mg PO QHS cholecalciferol (vitamin D3) [Vitamin D3] 25 mcg (1,000 unit) Capsule 25 mcg PO DAILY albuterol sulfate 2.5 mg /3 mL (0.083 %) solution for nebulization 2.5 mg inhalation Q6H PRN PRN (Reason: Shortness Of Breath Or Wheezing) albuterol sulfate [Ventolin HFA] 90 mcg/actuation HFA aerosol inhaler 1 puff INHALATION Q4H PRN PRN (Reason: Shortness Of Breath Or Wheezing) baclofen 10 mg Tablet 5 mg PO BID Qty: 30 0RF amlodipine 10 mg tablet 10 mg PO DAILY Qty: 30 0RF metoprolol succinate 50 mg tablet extended release 24 hr 50 mg PO DAILY pregabalin [Lyrica] 150 mg capsule 150 mg PO TID 3 Days Qty: 9 0RF melatonin 3 mg Tablet 3 mg PO QHS PRN PRN (Reason: Insomnia) Qty: 0 0RF Changed ferrous sulfate 325 mg (65 mg iron) Tablet 325 mg PO DAILY 30 Days Qty: 0 0RF Discontinued meloxicam 15 mg Tablet 7.5 mg PO DAILY 30 Days Qty: 15 0RF Rx Instructions: 7.5 mg once daily for 1 week and then as needed. acetaminophen 500 mg Tablet 1,000 mg PO Q8 Qty: 0 0RF Rx Instructions: 1 g every 8 hourly for 1 week and then q. 8 hourly as needed for moderate to severe pain amlodipine PO DAILY atorvastatin PO QHS baclofen PO TID bupropion HCl [Wellbutrin SR] PO DAILY meloxicam PO BID metoprolol succinate PO DAILY mirabegron [Myrbetriq] PO DAILY olanzapine PO omeprazole PO DAILY oxybutynin chloride PO DAILY pregabalin [Lyrica] PO TID Referrals / Follow Up: Memo Chairez MD [Primary Care Provider] - Disposition Disposition (needs filled in before D/C Order can be placed): Home, Self Care
--- NOTE | 2023-08-14 12:05 | PCM.DC.SUM ---
Providers Date of Admission: 08/12/23 Date of Discharge: 08/14/23 Primary Care Physician: Dr. Memo Chairez MD Reason For Visit: INTRACTABLE BACK PAIN Diagnosis Discharge Diagnosis (1) Intractable back pain: Status: Acute Code(s): M54.9 - Dorsalgia, unspecified Medications at Discharge Home Medications bupropion HCl 150 mg tablet,12 hr sustained-release (Wellbutrin SR) 300 mg PO DAILY depression 04/30/21 levothyroxine 25 mcg tablet 25 mcg PO DAILY hypothyroid 04/30/21 tiotropium bromide 2.5 mcg/actuation mist for inhalation (Spiriva Respimat) 2 puff inhalation DAILY COPD 04/30/21 albuterol sulfate 2.5 mg/3 mL (0.083 %) solution for nebulization 2.5 mg inhalation Q6H PRN PRN Shortness Of Breath Or Wheezing 10/12/21 albuterol sulfate 90 mcg/actuation aerosol inhaler (Ventolin HFA) 1 puff inhalation Q4H PRN PRN Shortness Of Breath Or Wheezing 10/12/21 cholecalciferol (vitamin D3) 25 mcg (1,000 unit) capsule (Vitamin D3) 25 mcg PO DAILY vitamin 10/12/21 atorvastatin 40 mg tablet 40 mg PO QHS cholesterol 02/03/22 omeprazole 20 mg capsule,delayed release 20 mg PO DAILY reflux 03/25/22 baclofen 10 mg tablet 5 mg (1/2 x 10 mg) PO BID pain #30 tabs 05/06/22 cyanocobalamin (vitamin B-12) 1,000 mcg tablet (Vitamin B-12) 1,000 mcg PO DAILY supplement 07/27/22 mirabegron 25 mg tablet,extended release 24 hr (Myrbetriq) 25 mg PO DAILY OVERACTIVE BLADDER 07/27/22 olanzapine 10 mg tablet 10 mg PO DAILY MOOD 10/28/22 oxybutynin chloride 10 mg tablet,extended release 24 hr 10 mg PO DAILY OVERACTIVE BLADDER 10/28/22 trazodone 150 mg tablet 150 mg PO QHS SLEEP 10/28/22 amlodipine 10 mg tablet 10 mg PO DAILY bp #30 tabs 12/29/22 metoprolol succinate 50 mg tablet,extended release 24 hr 50 mg PO DAILY bp 05/15/23 pregabalin 150 mg capsule (Lyrica) 150 mg PO TID pain 3 days #9 caps 05/23/23 melatonin 3 mg tablet 3 mg PO QHS PRN PRN Insomnia #0 tabs 07/03/23 ferrous sulfate 325 mg (65 mg iron) tablet 325 mg PO DAILY supplement 30 days #0 tabs 08/14/23 lidocaine 5 % topical patch 1 patch topical DAILY #15 ea 08/14/23 methylprednisolone 4 mg tablets in a dose pack (Medrol (Justen)) 4 mg PO QODAY #21 tabs 08/14/23 oxycodone 5 mg tablet 5 mg PO Q6H PRN pain 2 days #8 tabs 08/14/23 Hospital Course Operations None Procedures - (Cervical spine x-ray, CT lumbar spine without contrast) Summary of Care Provided Minutes Spent on Discharge: 35 Hospital Course: Patient is a 53-year-old female who presented [facility] ED on 08/12/2023 with worsening low back pain and difficulty with ambulation. Hospital course as noted below. Patient discharged home without any needs in stable condition on 08/14. 1. Intractable low back pain with acute difficulty with ambulation, improving; history of low back pain with radiculopathy Follows with Dr. Skinner with Orthopedics, had recent C-spine procedure 6 weeks ago. Had follow-up appointment in the office on 08/12, patient noted worsening low back pain with left leg radiculopathy and difficulty with ambulation since 08/10, came to ED for further evaluation. Lumbar spine CT showed no acute changes. ? Discussed with Dr. Skinner on admission, who suspected that patient had mild swelling in low back causing her worsening symptoms. Patient had great improvement in symptoms with p.o. steroids and IV Toradol during the short hospitalization. She also had improvement in pain with intermittent doses of oxycodone. PT/OT/case management followed, patient okay for home without any home health care, can follow-up with outpatient physical therapy as needed. Continued Medrol Dosepak on discharge. Gave patient a 3-day course of oxycodone to get her to her pain management appointment coming up this Tuesday. 2. Recent history of cervical spine procedure ? S/p C3-5 posterior cervical instrumented fusion on 06/27/23. Per Dr. Skinner, patient has had some improvement in neck pain but unfortunately has not had good improvement of her strength in the upper extremities. Went to SNF for time on discharge and just completed physical therapy with home health care on day prior to admission. Planning to establish with pain management on 08/16 per orthopedic recs. Chronic medical conditions: ? Hypertension, hyperlipidemia: Continue home amlodipine, statin. ? Anxiety and depression, bipolar disorder, PTSD: Stable. Continue home medications. ? Tobacco use: Encouraged cessation, nicotine placement therapy as needed. ? Hypothyroidism: Continue home Synthroid. ? Obesity: BMI 31 on admit. Complicates hospital course, care prognosis. ? GERD: Continue home PPI. ? SANA: Continue CPAP nightly. Total clinical time spent by myself addressing the patient's discharge needs: 35 minutes. Physical Exam Const alert, oriented x3 and no apparent distress Constitutional Narrative: Middle-age female, obese, sitting up comfortably in bedside chair, conversing normally, no acute distress. General Appearance: cooperative and comfortable HEENT normocephalic, head/scalp atraumatic, hearing grossly normal bilaterally and nasal mucous membranes and turbinates normal Eyes PERRL, EOMs intact bilaterally and conjunctivae normal Neck full ROM, no lymphadenopathy and supple Lymph Lymphatic: no lymphadenopathy noted Chest inspection of chest normal Resp normal respiratory effort, normal air movement, no use of accessory muscles and clear to auscultation bilaterally Cardio regular rate, regular rhythm, no murmurs and peripheral pulses 2+ throughout GI normal to inspection, nondistended, normoactive bowel sounds, soft to palpation, non-tender and non-distended Back/Spine Back/Spine Narrative: Mildly decreased range of motion in low back, no tenderness to palpation. Extremity normal to inspection and no pedal edema Skin no rashes or lesions noted Neuro no focal motor deficits and no sensory deficits noted Speech: speech normal Psych mental status grossly normal Weight / BMI Weight Weight: 90.3 kg Body Mass Index (BMI) 32.0 ABG / Lab / Microbiology Data 08/13/23 05:17 08/13/23 05:17 D/C Instructions Discharge Diet: No restrictions Weight Bearing Status: Full weight bearing Meaningful Use Info Meaningful Use Diagnoses (Choose all that apply): None applicable Discharge Plan Admission Admit Date/Time: 08/12/23 21:32 Primary Reason for Your Visit: low back pain w/ radiculopathy Attending Provider: Adolfo Harris Primary Care Provider: Memo Chairez Consulting Providers: Kelly Vidales Discharge Orders/Prescriptions Prescriptions: New oxycodone 5 mg tablet 5 mg PO Q6H PRN (Reason: pain) 2 Days Qty: 8 0RF methylprednisolone [Medrol (Justen)] 4 mg tablets,dose pack 4 mg PO QODAY Qty: 21 0RF lidocaine 5 % adhesive patch,medicated 1 patch topical DAILY Qty: 15 0RF Rx Instructions: leave on most painful area for up to 12 hrs Continued omeprazole 20 mg capsule,delayed release(DR/EC) 20 mg PO DAILY cyanocobalamin (vitamin B-12) [Vitamin B-12] 1,000 mcg tablet 1,000 mcg PO DAILY Myrbetriq 25 mg tablet extended release 24 hr 25 mg PO DAILY trazodone 150 mg tablet 150 mg PO QHS olanzapine 10 mg tablet 10 mg PO DAILY oxybutynin chloride 10 mg tablet extended release 24hr 10 mg PO DAILY bupropion HCl [Wellbutrin SR] 150 mg Tablet Sustained-Release 12 Hr 300 mg PO DAILY levothyroxine 25 mcg Tablet 25 mcg PO DAILY Spiriva Respimat 2.5 mcg/actuation Mist 2 puff INHALATION DAILY atorvastatin 40 mg tablet 40 mg PO QHS cholecalciferol (vitamin D3) [Vitamin D3] 25 mcg (1,000 unit) Capsule 25 mcg PO DAILY albuterol sulfate 2.5 mg /3 mL (0.083 %) solution for nebulization 2.5 mg inhalation Q6H PRN PRN (Reason: Shortness Of Breath Or Wheezing) albuterol sulfate [Ventolin HFA] 90 mcg/actuation HFA aerosol inhaler 1 puff INHALATION Q4H PRN PRN (Reason: Shortness Of Breath Or Wheezing) baclofen 10 mg Tablet 5 mg PO BID Qty: 30 0RF amlodipine 10 mg tablet 10 mg PO DAILY Qty: 30 0RF metoprolol succinate 50 mg tablet extended release 24 hr 50 mg PO DAILY pregabalin [Lyrica] 150 mg capsule 150 mg PO TID 3 Days Qty: 9 0RF melatonin 3 mg Tablet 3 mg PO QHS PRN PRN (Reason: Insomnia) Qty: 0 0RF Changed ferrous sulfate 325 mg (65 mg iron) Tablet 325 mg PO DAILY 30 Days Qty: 0 0RF Discontinued meloxicam 15 mg Tablet 7.5 mg PO DAILY 30 Days Qty: 15 0RF Rx Instructions: 7.5 mg once daily for 1 week and then as needed. acetaminophen 500 mg Tablet 1,000 mg PO Q8 Qty: 0 0RF Rx Instructions: 1 g every 8 hourly for 1 week and then q. 8 hourly as needed for moderate to severe pain amlodipine PO DAILY atorvastatin PO QHS baclofen PO TID bupropion HCl [Wellbutrin SR] PO DAILY meloxicam PO BID metoprolol succinate PO DAILY mirabegron [Myrbetriq] PO DAILY olanzapine PO omeprazole PO DAILY oxybutynin chloride PO DAILY pregabalin [Lyrica] PO TID Referrals / Follow Up: Memo Chairez MD [Primary Care Provider] - Disposition Disposition (needs filled in before D/C Order can be placed): Home, Self Care Charges/Coding Visit Charges Inpatient E&M: 90440 Disch Hosp >30min
--- NOTE | 2023-08-15 08:49 | CASEMGMT ---
Social Work SW called pt's lead case manager Rena([phone]) with [facility], message left letting her know that pt was here in the hospital and was discharged on the weekend. SHAN Ro
== END 2023-08-14 12:32 | disposition home or self-care (01) ==
LOC: ED 21:07 → MS3 22:13
PROVIDERS: Admitting Provider Family Medicine; Emergency Provider Emergency Medicine; PCP Family Medicine; Visit Provider Hospitalist
DX: M54.50 Low back pain, unspecified (principal); J44.9 Chronic obstructive pulmonary disease, unspecified; F31.9 Bipolar disorder, unspecified; G47.33 Obstructive sleep apnea (adult) (pediatric); F17.200 Nicotine dependence, unspecified, uncomplicated; E78.00 Pure hypercholesterolemia, unspecified; M51.16 Intervertebral disc disorders with radiculopathy, lumbar region; D50.9 Iron deficiency anemia, unspecified; M41.9 Scoliosis, unspecified; F43.10 Post-traumatic stress disorder, unspecified; K21.9 Gastro-esophageal reflux disease without esophagitis; Z98.1 Arthrodesis status; F41.9 Anxiety disorder, unspecified; G89.29 Other chronic pain; E03.9 Hypothyroidism, unspecified; R26.2 Difficulty in walking, not elsewhere classified; I10 Essential (primary) hypertension; Z79.899 Other long term (current) drug therapy; Z79.890 Hormone replacement therapy; E66.9 Obesity, unspecified; Z68.32 Body mass index [BMI] 32.0-32.9, adult; Z23 Encounter for immunization
CPT/HCPCS: 90686; 36415; 72131; 80048; 80053; 85025; 94640; 94668; 96361; 96372; 96374; 96375; 96376; 97162; 97166; 97535; 99221; 99284; 99406; J7030; A4216; G0378; J2405

== ENCOUNTER → 2023-08-16 | Outpatient (CLI) | payer MEDICAID, SELFPAY ==
[2023-08-16 17:00] LABS: Amphetamine Urine VISTA POSITIVE (<1000 ng/mL); Barbiturate Urine VISTA NEGATIVE (< 200 ng/mL); Benzodiazepine Urine VISTA NEGATIVE (< 200 ng/mL); Cocaine Urine VISTA NEGATIVE (< 300 ng/mL); Ecstacy Urine VISTA POSITIVE (< 500 ng/mL); Methadone Urine VISTA NEGATIVE (< 300 ng/mL); PCP Urine VISTA NEGATIVE (< 25 ng/mL); THC Urine VISTA POSITIVE (< 50 ng/mL); Vista UDS pH Range 5
== END | disposition home or self-care (01) ==
LOC: LAB 16:11
PROVIDERS: PCP Family Medicine; Referring Provider Anesthesiology; Visit Provider Anesthesiology
DX: M54.17 Radiculopathy, lumbosacral region (principal); S46.012A Strain of muscle(s) and tendon(s) of the rotator cuff of left shoulder, initial encounter
CPT/HCPCS: 80307

== ENCOUNTER 2023-10-20 11:00 | Outpatient (RCR) | payer MEDICAID, SELFPAY ==
--- NOTE | 2023-09-14 12:56 | HP.PTEVAL ---
Patient's Visit Information Visit Information Visit Information: KAMI JARQUIN is a 53 year old F referred to Physical Therapy by Dr. Dane Fenton MD with a diagnosis of Radiculopathy L/S and strain of L RC. Date of Evaluation: 09/14/23 Physical Therapist: BHARATH Ordaz Visit Plan Frequency: 2x /Week Duration: 2 Months Plan: 2X/ week for 8 weeks for AT for trunk ROM (watch recent neck fusion), LE strength, core stability, UE AROM, UE strength with HEP Subjective Subjective: Pt reports that it is hard to lift her L shoulder up or reach to the side and she has a pinched nerve that shoots fire/electricity into my toes on the L side. Constant shooting pain all the way to her toes on the L. It is more intense at times than others but bad everyday. 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 She went into [place] and could use her arms and legs again. She then went home and was home 3 days and fell and Fx her neck and had another surgery. She has bone fusion with plate and screws. Before then she had the sciatica but it was not this bad. She went to Dr Staley and ordered a stimulator and only had it for a 5 day trial and now the pain is intolerable. She is not able to stand too long or sit too long. They did an x-ray and CASTSCAN of lumbar spine and it was clear other than DDD at a severe rate. She has weakness in her legs and it is from her neck, at least part of it. She is not allowed to lift greater than 5#. She has not fallen since the second surgery. She sleeps ok with meds. Staying asleep is an issue due to L leg pain. She uses the cane on her good days and on bad days she uses her rollator. She has no steps at home. She has a drivers liscense but not a vehicle. She just got shots in her back this morning. Pain Back pain: Pain Intensity (Out of 10): 8 L shoulder pain: Pain Intensity (Out of 10): 7 Comment: with movement L Leg pain: Pain Intensity (Out of 10): 8 Objective Objective: sit to stand: needed UE to get out of chair and had trunk flexion and weight bearing on the R LE and increase pain. Took her a few seconds of standing there to be able to get straight. Gait: walks with a straight cane in the R UE and walks with decreased stride length but equal B and slightly WBOS and decrease stance time on the L LE. Trunk AROM: flexion 50%, Ext not even to neutral, SB B 25% LE strength: R hip flex 4.4 and 4.1 R knee ext 10.6 and L 2.9 R knee flex 5.1 and L 2.6 SLUMP test + on the L SLR UE AROM: R shoulder flexion 133 and L 62 R shoulder abd 160 and L 31 R ER 73 and L 54 UE MMT R shoulder flex 3.4 and L .8 R ER 2.5 and L 1.4 patella DTR 1+/3 B Bicep DTR 1+/3 B [employer] strength R 27#, L 17# and pt is R handed Pt was not able to walk out of the clinic due to L leg pain and therapist wheeled her to the car. Balance/Special Test Scores Quick DASH Score: 77.2725 Goals Goal 1:: I HEP Goal Time Frame: 6-8 Weeks Goal 2:: Be able to walk back to the treatment area with upright posture Goal Time Frame: 6-8 Weeks Goal 3:: Be able to sit to stand with 1 UE support and be able to walk immed without having to stand there for a few seconds before walking Goal Time Frame: 6-8 Weeks Goal 4:: Increase L shoulder AROM (at the time of the eval: UE AROM: R shoulder flexion 133 and L 62 R shoulder abd 160 and L 31 R ER 73 and L 54). Goal Time Frame: 6-8 Weeks Goal 5:: Increase LE strength (at the time of the eval: LE strength: R hip flex 4.4 and 4.1 R knee ext 10.6 and L 2.9 R knee flex 5.1 and L 2.6). Goal Time Frame: 6-8 Weeks Rehabilitation Potential Rehabilitation Potential: Good Anticipated Interventions Patient/Client Instruction: Educate patient on: Condition and Plan of Care For the Purpose of:: To decrease pain, To increase ROM, To improve nutrient delivery to tissue, To improve muscle performance and motor function, To improve ability to perform ADL's, To increase tolerance to activity/condition/position, To decrease level of supervision to perform tasks, To improve ability of physical actions for home/community/work/leisure, To improve gait and locomotor functions, To improve health of tissue, To decrease soft tissue restriction, To increase flexibility/ROM, To improve endurance, To improve balance and To improve safety with gait Therapeutic Exercise to Include: Strength training, Endurance training, Balance training, Body mechanics, Postural training, Flexibilty training, Gait and locomotor training, Neuromotor development, In an aquatic setting, Active ROM, Dynamic Lumbar Stabilization and Scapular Strength/Stabilization For the Purpose of:: To decrease pain, To increase ROM, To improve nutrient delivery to tissue, To improve muscle performance and motor function, To improve ability to perform ADL's, To increase tolerance to activity/condition/position, To improve performance and independence with ADL's, To decrease level of supervision to perform tasks, To improve ability of physical actions for home/community/work/leisure, To improve gait and locomotor functions, To improve health of tissue, To decrease soft tissue restriction, To increase flexibility/ROM, To improve endurance, To improve balance and To improve safety with gait Functional Training to Include: Gait training For the Purpose of:: To improve gait and locomotor functions and To improve safety with gait Text: Thank you for the opportunity to evaluate your patient. For Medicare and Medicare HMO plans, please review the plan of care and approve it. It will need to be FAXED BACK to us at [phone] for Medicare purposes. For Medicare only, by signing this I certify the plan of care. Please let me know if there are questions or concerns regarding this plan of care. Physician Signature: Date:
--- NOTE | 2023-12-08 14:25 | HP.PT.NRP ---
Patient Information Patient Information: KAMI JARQUIN was seen in my office for initial evaluation on 09/14/23. The following Plan of Care was established for this patient: POC Established Initial Frequency: 2x /Week Initial Duration: 2 Months Anticipated Interventions Patient/Client Instruction: Educate patient on: Condition and Plan of Care For the Purpose of:: To decrease pain, To increase ROM, To improve nutrient delivery to tissue, To improve muscle performance and motor function, To improve ability to perform ADL's, To increase tolerance to activity/condition/position, To decrease level of supervision to perform tasks, To improve ability of physical actions for home/community/work/leisure, To improve gait and locomotor functions, To improve health of tissue, To decrease soft tissue restriction, To increase flexibility/ROM, To improve endurance, To improve balance and To improve safety with gait Therapeutic Exercise to Include: Strength training, Endurance training, Balance training, Body mechanics, Postural training, Flexibilty training, Gait and locomotor training, Neuromotor development, In an aquatic setting, Active ROM, Dynamic Lumbar Stabilization and Scapular Strength/Stabilization For the Purpose of:: To decrease pain, To increase ROM, To improve nutrient delivery to tissue, To improve muscle performance and motor function, To improve ability to perform ADL's, To increase tolerance to activity/condition/position, To improve performance and independence with ADL's, To decrease level of supervision to perform tasks, To improve ability of physical actions for home/community/work/leisure, To improve gait and locomotor functions, To improve health of tissue, To decrease soft tissue restriction, To increase flexibility/ROM, To improve endurance, To improve balance and To improve safety with gait Functional Training to Include: Gait training For the Purpose of:: To improve gait and locomotor functions and To improve safety with gait Last Seen Last Seen: This patient was last seen in our office 10/20/23. Pertinent comments regarding their Physical therapy will appear below: DC PT At this point I will be discontinuing this patient from physical therapy. I would be happy to see this patient again in the future if found appropriate by the physician. Thank you! Nisha Estevez, MPT Balance/Gait/Functional tests Balance/Special Test Scores Quick DASH Score: 77.8138
== END 2023-10-20 19:00 | disposition home or self-care (01) ==
LOC: PT 11:00
PROVIDERS: PCP Family Medicine; Referring Provider Anesthesiology; Visit Provider Anesthesiology
DX: S46.012D Strain of muscle(s) and tendon(s) of the rotator cuff of left shoulder, subsequent encounter (principal); M54.17 Radiculopathy, lumbosacral region; M54.16 Radiculopathy, lumbar region; M46.1 Sacroiliitis, not elsewhere classified
CPT/HCPCS: 97113; 97161